=== PATIENT | male | born 1950 | race Caucasian/White ===

== ENCOUNTER 2022-10-31 07:40 | Outpatient (OUT) | payer MEDICARE, OTHER, SELFPAY ==
[2022-10-31 08:40] LABS: Basophils Percent Auto 0.5 % (0.2-2.0); Eosinophils Absolute Auto 0.1 10^3/uL (0.0-0.7); Eosinophils Percent Auto 1.5 % (0.9-7.0); Hematocrit 35.3 % (42.0-54.0); Hemoglobin 11.9 g/dL (14.0-18.0); Immature Granulocytes Abs Auto 0.11 10^3/uL (0.00-0.03); Immature Granulocytes Pct Auto 1.9 % (0.0-0.5); Lymphocytes Absolute Auto 0.8 10^3/uL (1.2-3.8); Lymphocytes Percent Auto 13.7 % (20.5-60.0); Mean Corpuscular HGB Conc 33.7 g/dL (29.9-35.2); Mean Corpuscular Hemoglobin 28.8 pg (25.9-34.0); Mean Corpuscular Volume 85.5 fL (80.0-94.0); Mean Platelet Volume 9.1 fL (9.5-13.5); Monocytes Absolute Auto 0.5 10^3/uL (0.3-0.8); Monocytes Percent Auto 9.1 % (1.7-12.0); Neutrophils Absolute Auto 4.3 10^3/uL (1.4-6.5); Neutrophils Percent Auto 73.3 % (43.0-75.0); Platelet Count 217 10^3/uL (150-450); Red Blood Count 4.13 10^6/uL (4.70-6.10); Red Cell Distribution Width 13.1 % (11.0-15.0); White Blood Count 5.8 10^3/uL (4.0-11.0)
[2022-10-31 09:32] LABS: Alanine Aminotransferase 27 U/L (16-63); Albumin Globulin Ratio 1.1; Albumin Level 3.9 g/dL (3.4-5.0); Alkaline Phosphatase 176 U/L (46-116); Anion Gap 13.2; Aspartate Amino Transferase 18 U/L (15-37); BUN Creatinine Ratio 10.5; Bilirubin Direct 0.1 mg/dL (0.0-0.2); Bilirubin Total 0.3 mg/dL (0.2-1.0); Calcium 7.9 mg/dL (8.5-10.1); Carbon Dioxide 27.2 mmol/L (21.0-32.0); Chloride 95 mmol/L (98-107); Chol HDL Ratio 1.9; Cholesterol 82 mg/dL (<=200); Estimated GFR (African America >60 (>=60); Estimated GFR (Non-African Ame >60 (>=60); Globulin 3.4 g/dL; Glucose 198 mg/dL (74-106); HDL Cholesterol 44 mg/dL (40-60); LDL Cholesterol Calculated 24.2 mg/dL; Magnesium 1.3 mg/dL (1.8-2.4); Phosphorus 3.9 mg/dL (2.6-4.7); Potassium 4.4 mmol/L (3.5-5.1); Sodium 131 mmol/L (136-145); Total Protein 7.3 g/dL (6.4-8.2); Triglycerides 69 mg/dL (<=150); Uric Acid 5.6 mg/dL (3.5-7.2); VLDL CHOLESTEROL 13.8 mg/dL
[2022-10-31 13:58] LABS: Estimated Average Glucose 194 mg/dL; Glycohemoglobin A1C 8.4 % (4.5-6.2)
[2022-11-02 14:10] LABS: BKV DNA, Quant PCR, Plasma Negative (Negative)
[2022-11-03 10:08] LABS: Tacrolimus (FK506), Blood 4.8 ng/mL (2.0-20.0)
[2022-11-04 14:08] LABS: Testosterone 437 ng/dL (264-916)
== END 2022-10-31 07:41 | disposition home or self-care (01) ==
LOC: LAB 07:45
DX: Z48.298 Encounter for aftercare following other organ transplant (principal)
CPT/HCPCS: 36415; 80053; 80061; 80076; 80197; 83036; 83735; 84100; 84402; 84403; 84550; 85025; 87799

== ENCOUNTER 2023-01-02 07:29 | Outpatient (OUT) | payer MEDICARE, OTHER, SELFPAY ==
[2023-01-02 08:02] LABS: Basophils Percent Auto 0.3 % (0.2-2.0); Eosinophils Absolute Auto 0.1 10^3/uL (0.0-0.7); Eosinophils Percent Auto 1.7 % (0.9-7.0); Hematocrit 35.2 % (42.0-54.0); Hemoglobin 11.8 g/dL (14.0-18.0); Immature Granulocytes Pct Auto 1.7 % (0.0-0.5); Lymphocytes Percent Auto 15.7 % (20.5-60.0); Mean Corpuscular HGB Conc 33.5 g/dL (29.9-35.2); Mean Corpuscular Hemoglobin 28.8 pg (25.9-34.0); Mean Corpuscular Volume 85.9 fL (80.0-94.0); Mean Platelet Volume 8.9 fL (9.5-13.5); Monocytes Absolute Auto 0.6 10^3/uL (0.3-0.8); Monocytes Percent Auto 9.4 % (1.7-12.0); Neutrophils Absolute Auto 4.3 10^3/uL (1.4-6.5); Neutrophils Percent Auto 71.2 % (43.0-75.0); Platelet Count 225 10^3/uL (150-450); Red Cell Distribution Width 13.2 % (11.0-15.0); White Blood Count 6.1 10^3/uL (4.0-11.0)
[2023-01-02 08:37] LABS: Alanine Aminotransferase 27 U/L (16-63); Albumin Globulin Ratio 1.3; Albumin Level 4.2 g/dL (3.4-5.0); Alkaline Phosphatase 160 U/L (46-116); Anion Gap 16.4; Aspartate Amino Transferase 13 U/L (15-37); Bilirubin Direct 0.1 mg/dL (0.0-0.2); Bilirubin Total 0.3 mg/dL (0.2-1.0); Calcium 7.9 mg/dL (8.5-10.1); Carbon Dioxide 24.8 mmol/L (21.0-32.0); Chloride 92 mmol/L (98-107); Chol HDL Ratio 1.8; Cholesterol 84 mg/dL (<=200); Estimated GFR (African America >60 (>=60); Estimated GFR (Non-African Ame >60 (>=60); Globulin 3.3 g/dL; Glucose 191 mg/dL (74-106); HDL Cholesterol 46 mg/dL (40-60); LDL Cholesterol Calculated 24.2 mg/dL; Magnesium 1.4 mg/dL (1.8-2.4); Phosphorus 4.5 mg/dL (2.6-4.7); Potassium 5.2 mmol/L (3.5-5.1); Sodium 128 mmol/L (136-145); Total Protein 7.5 g/dL (6.4-8.2); Triglycerides 69 mg/dL (<=150); Uric Acid 5.7 mg/dL (3.5-7.2); VLDL CHOLESTEROL 13.8 mg/dL
[2023-01-05 02:07] LABS: Tacrolimus (FK506), Blood 4.9 ng/mL (2.0-20.0)
== END 2023-01-02 07:30 | disposition home or self-care (01) ==
PROVIDERS: PCP Family Medicine
DX: Z48.298 Encounter for aftercare following other organ transplant (principal); N18.9 Chronic kidney disease, unspecified; R79.89 Other specified abnormal findings of blood chemistry
CPT/HCPCS: 36415; 80053; 80061; 80076; 80197; 83036; 83735; 84100; 84402; 84403; 84550; 85025; 87799

== ENCOUNTER 2023-01-31 07:14 | Outpatient (OUT) | payer MEDICARE, OTHER, SELFPAY ==
[2023-01-31 07:43] LABS: Basophils Percent Auto 0.3 % (0.2-2.0); Eosinophils Absolute Auto 0.1 10^3/uL (0.0-0.7); Eosinophils Percent Auto 1.7 % (0.9-7.0); Hematocrit 33.2 % (42.0-54.0); Hemoglobin 10.8 g/dL (14.0-18.0); Immature Granulocytes Abs Auto 0.07 10^3/uL (0.00-0.03); Immature Granulocytes Pct Auto 1.2 % (0.0-0.5); Lymphocytes Absolute Auto 0.8 10^3/uL (1.2-3.8); Lymphocytes Percent Auto 12.9 % (20.5-60.0); Mean Corpuscular HGB Conc 32.5 g/dL (29.9-35.2); Mean Corpuscular Hemoglobin 29.4 pg (25.9-34.0); Mean Corpuscular Volume 90.5 fL (80.0-94.0); Mean Platelet Volume 9.1 fL (9.5-13.5); Monocytes Absolute Auto 0.6 10^3/uL (0.3-0.8); Monocytes Percent Auto 9.8 % (1.7-12.0); Neutrophils Absolute Auto 4.5 10^3/uL (1.4-6.5); Neutrophils Percent Auto 74.1 % (43.0-75.0); Platelet Count 212 10^3/uL (150-450); Red Blood Count 3.67 10^6/uL (4.70-6.10); Red Cell Distribution Width 13.2 % (11.0-15.0)
[2023-01-31 08:44] LABS: Alanine Aminotransferase 22 U/L (16-63); Albumin Globulin Ratio 1.2; Albumin Level 3.8 g/dL (3.4-5.0); Alkaline Phosphatase 140 U/L (46-116); Anion Gap 13.5; Aspartate Amino Transferase 15 U/L (15-37); BUN Creatinine Ratio 12.5; Bilirubin Direct 0.1 mg/dL (0.0-0.2); Bilirubin Total 0.2 mg/dL (0.2-1.0); Calcium 7.9 mg/dL (8.5-10.1); Carbon Dioxide 26.7 mmol/L (21.0-32.0); Chloride 96 mmol/L (98-107); Cholesterol 79 mg/dL (<=200); Estimated GFR (African America >60 (>=60); Estimated GFR (Non-African Ame >60 (>=60); Globulin 3.1 g/dL; Glucose 188 mg/dL (74-106); HDL Cholesterol 39 mg/dL (40-60); Magnesium 1.2 mg/dL (1.8-2.4); Potassium 5.2 mmol/L (3.5-5.1); Sodium 131 mmol/L (136-145); Total Protein 6.9 g/dL (6.4-8.2); Triglycerides 88 mg/dL (<=150); Uric Acid 6.2 mg/dL (3.5-7.2); VLDL CHOLESTEROL 17.6 mg/dL
[2023-02-03 06:07] LABS: Tacrolimus (FK506), Blood 4.9 ng/mL (2.0-20.0)
== END 2023-01-31 07:15 | disposition home or self-care (01) ==
LOC: LAB 07:15
PROVIDERS: PCP Family Medicine
DX: Z48.298 Encounter for aftercare following other organ transplant (principal); N18.9 Chronic kidney disease, unspecified; R79.89 Other specified abnormal findings of blood chemistry
CPT/HCPCS: 36415; 80053; 80061; 80197; 82248; 83735; 84100; 84550; 85025

== ENCOUNTER 2023-02-28 07:07 | Outpatient (OUT) | payer MEDICARE, OTHER, SELFPAY ==
[2023-02-28 07:31] LABS: Basophils Percent Auto 0.6 % (0.2-2.0); Eosinophils Absolute Auto 0.2 10^3/uL (0.0-0.7); Eosinophils Percent Auto 2.3 % (0.9-7.0); Hematocrit 32.1 % (42.0-54.0); Hemoglobin 10.9 g/dL (14.0-18.0); Immature Granulocytes Abs Auto 0.09 10^3/uL (0.00-0.03); Immature Granulocytes Pct Auto 1.3 % (0.0-0.5); Lymphocytes Absolute Auto 0.9 10^3/uL (1.2-3.8); Lymphocytes Percent Auto 13.5 % (20.5-60.0); Mean Corpuscular Hemoglobin 29.3 pg (25.9-34.0); Mean Corpuscular Volume 86.3 fL (80.0-94.0); Mean Platelet Volume 8.9 fL (9.5-13.5); Monocytes Absolute Auto 0.6 10^3/uL (0.3-0.8); Monocytes Percent Auto 8.7 % (1.7-12.0); Neutrophils Absolute Auto 5.1 10^3/uL (1.4-6.5); Neutrophils Percent Auto 73.6 % (43.0-75.0); Platelet Count 237 10^3/uL (150-450); Red Blood Count 3.72 10^6/uL (4.70-6.10); Red Cell Distribution Width 13.2 % (11.0-15.0); White Blood Count 6.9 10^3/uL (4.0-11.0)
[2023-02-28 08:22] LABS: Estimated Average Glucose 223 mg/dL; Glycohemoglobin A1C 9.4 % (4.5-6.2)
[2023-02-28 08:28] LABS: Chloride 92 mmol/L (98-107); Potassium 4.9 mmol/L (3.5-5.1); Sodium 125 mmol/L (136-145)
[2023-02-28 09:14] LABS: Anion Gap 13.2; Carbon Dioxide 24.7 mmol/L (21.0-32.0); Glucose 232 mg/dL (74-106)
[2023-02-28 09:15] LABS: BUN Creatinine Ratio 10.9; Calcium 7.5 mg/dL (8.5-10.1); Estimated GFR (African America >60 (>=60); Estimated GFR (Non-African Ame >60 (>=60)
[2023-02-28 09:16] LABS: Alanine Aminotransferase 26 U/L (16-63); Alkaline Phosphatase 143 U/L (46-116); Aspartate Amino Transferase 11 U/L (15-37); Bilirubin Direct 0.1 mg/dL (0.0-0.2); Bilirubin Total 0.4 mg/dL (0.2-1.0); Magnesium 1.1 mg/dL (1.8-2.4); Phosphorus 4.8 mg/dL (2.6-4.7)
[2023-02-28 09:17] LABS: Albumin Globulin Ratio 1.3; Albumin Level 3.9 g/dL (3.4-5.0); Cholesterol 78 mg/dL (<=200); HDL Cholesterol 46 mg/dL (40-60); Total Protein 6.9 g/dL (6.4-8.2); Triglycerides 53 mg/dL (<=150); VLDL CHOLESTEROL 10.6 mg/dL
[2023-02-28 09:22] LABS: Chol HDL Ratio 1.7
[2023-03-03 14:08] LABS: BKV DNA, Quant PCR, Plasma Negative (Negative)
[2023-03-03 21:07] LABS: Tacrolimus (FK506), Blood 8.4 ng/mL (2.0-20.0)
[2023-03-06 21:07] LABS: Free Testosterone(Direct) 5.6 pg/mL (6.6-18.1); Testosterone 401 ng/dL (264-916)
== END 2023-02-28 07:08 | disposition home or self-care (01) ==
PROVIDERS: PCP Family Medicine
DX: Z48.298 Encounter for aftercare following other organ transplant (principal); N18.9 Chronic kidney disease, unspecified; R79.89 Other specified abnormal findings of blood chemistry
CPT/HCPCS: 36415; 80053; 80061; 80197; 82248; 83036; 83735; 84100; 84402; 84403; 84550; 85025; 87799

== ENCOUNTER 2023-04-04 06:59 | Outpatient (OUT) | payer MEDICARE, OTHER, SELFPAY ==
[2023-04-04 07:23] LABS: Basophils Percent Auto 0.4 % (0.2-2.0); Eosinophils Absolute Auto 0.1 10^3/uL (0.0-0.7); Eosinophils Percent Auto 1.6 % (0.9-7.0); Hematocrit 35.1 % (42.0-54.0); Hemoglobin 11.7 g/dL (14.0-18.0); Immature Granulocytes Abs Auto 0.06 10^3/uL (0.00-0.03); Immature Granulocytes Pct Auto 0.9 % (0.0-0.5); Lymphocytes Absolute Auto 0.8 10^3/uL (1.2-3.8); Lymphocytes Percent Auto 12.1 % (20.5-60.0); Mean Corpuscular HGB Conc 33.3 g/dL (29.9-35.2); Mean Corpuscular Hemoglobin 29.5 pg (25.9-34.0); Mean Corpuscular Volume 88.6 fL (80.0-94.0); Mean Platelet Volume 9.8 fL (9.5-13.5); Monocytes Absolute Auto 0.5 10^3/uL (0.3-0.8); Neutrophils Absolute Auto 5.4 10^3/uL (1.4-6.5); Platelet Count 240 10^3/uL (150-450); Red Blood Count 3.96 10^6/uL (4.70-6.10)
[2023-04-04 07:52] LABS: Alanine Aminotransferase 26 U/L (16-63); Albumin Globulin Ratio 1.3; Albumin Level 3.9 g/dL (3.4-5.0); Alkaline Phosphatase 152 U/L (46-116); Anion Gap 17.2; Aspartate Amino Transferase 16 U/L (15-37); BUN Creatinine Ratio 13.4; Bilirubin Direct 0.1 mg/dL (0.0-0.2); Bilirubin Total 0.4 mg/dL (0.2-1.0); Calcium 7.7 mg/dL (8.5-10.1); Carbon Dioxide 23.6 mmol/L (21.0-32.0); Chloride 94 mmol/L (98-107); Chol HDL Ratio 1.7; Cholesterol 78 mg/dL (<=200); Estimated Average Glucose 280 mg/dL; Estimated GFR (African America >60 (>=60); Estimated GFR (Non-African Ame >60 (>=60); Globulin 3.1 g/dL; Glucose 345 mg/dL (74-106); Glycohemoglobin A1C 11.4 % (4.5-6.2); HDL Cholesterol 46 mg/dL (40-60); LDL Cholesterol Calculated 19.6 mg/dL; Phosphorus 4.5 mg/dL (2.6-4.7); Potassium 4.8 mmol/L (3.5-5.1); Sodium 130 mmol/L (136-145); Triglycerides 62 mg/dL (<=150); Uric Acid 6.1 mg/dL (3.5-7.2); VLDL CHOLESTEROL 12.4 mg/dL
[2023-04-04 08:27] LABS: Magnesium 1.2 mg/dL (1.8-2.4)
[2023-04-06 21:09] LABS: Tacrolimus (FK506), Blood 9.4 ng/mL (2.0-20.0)
[2023-04-07 12:11] LABS: BKV DNA, Quant PCR, Plasma Negative (Negative)
[2023-04-09 13:09] LABS: Testosterone 284 ng/dL (264-916)
== END 2023-04-04 07:00 | disposition home or self-care (01) ==
LOC: LAB 07:00
PROVIDERS: PCP Family Medicine
DX: R73.02 Impaired glucose tolerance (oral) (principal); Z94.0 Kidney transplant status
CPT/HCPCS: 36415; 80053; 80061; 80076; 80197; 83036; 83735; 84100; 84402; 84403; 84550; 85025; 87799

== ENCOUNTER 2023-04-27 08:55 | Emergency (ER) | payer MEDICARE, OTHER, SELFPAY ==
[2023-04-27] VITALS (68 sets, daily range): BP systolic 91–132; BP diastolic 49–73; PULSE 59–87; RESP 10–26; TEMP 36.4; O2SAT 95–98; BMI 25.0
--- NOTE | 2023-04-27 09:07 | ECG_ITS ---
The [facility] Test Date: 2023-04-27 Pat Name: ROGER KERR Department: Room: - Gender: Male Vehicle Check In Clerk: : 1950 Requested By: PHYLILS MCCARTHY Order Number: [id number] Reading MD: ASTRID SCHULTZ Measurements Intervals [place] Rate: 62 P: 44 RI: 170 QRS: 30 QRSD: 102 T: 30 QT: 422 QTc: 428 Interpretive Statements 1100 Sinus rhythm 3433 Septal myocardial infarction, probably old 9150 abnormal ECG No previous ECG available for comparison Electronically Signed On 04-27-2023 16:56:56 EST by ASTRID SCHULTZ
--- NOTE | 2023-04-27 09:10 | ED_ITS ---
HPI - General Adult General Chief complaint: Nausea/Vomiting/Diarrhea Stated complaint: NAUSEA Time Seen by Provider: 04/27/23 09:02 Source: patient Mode of arrival: walk-in History of Present Illness HPI narrative: 72-year-old male presents for nausea and vomiting. He states he's been able to drink liquids but can't eat very well because he is having trouble swallowing food. It's been this way for a month. Three years ago he had kidney transplant in about three weeks ago he had his blood tested. He's been able to take all of his medications. No fever or hematemesis. Related Data Home Medications Medication Instructions Recorded Confirmed amiloride 5 mg tablet 5 mg PO DAILY 04/27/23 04/27/23 amlodipine 10 mg tablet 10 mg PO DAILY 04/27/23 04/27/23 atorvastatin 10 mg tablet 10 mg PO .every other day 04/27/23 04/27/23 carvedilol 12.5 mg tablet 12.5 mg PO Q12H 04/27/23 04/27/23 cinacalcet 30 mg tablet 30 mg PO DAILY 04/27/23 04/27/23 furosemide 20 mg tablet 20 mg PO DAILY 04/27/23 04/27/23 lisinopril 20 mg tablet 20 mg PO DAILY 04/27/23 04/27/23 magnesium oxide 400 mg (241.3 mg 800 mg PO BID 04/27/23 04/27/23 magnesium) tablet sildenafil (pulm.hypertension) 20 20 mg PO TID 04/27/23 04/27/23 mg tablet sulfasalazine 500 mg 0.5 g PO Q12H 04/27/23 04/27/23 tablet,delayed release Allergies Allergy/AdvReac Type Severity Reaction Status Date / Time No Known Drug Allergies Allergy Verified 04/27/23 09:02 Review of Systems ROS Narrative A ten point review of systems is negative except as noted above. Exam Narrative Exam Narrative: Nurses note and vital signs reviewed and patient is not hypoxic. General: The patient appears well and in no apparent distress. Patient is resting comfortably on cart. Skin: Warm, dry, no pallor noted. There is no rash noted. Head: Normocephalic, atraumatic Eye: Normal conjunctiva, no drainage, EOMI. PERRL Ears, Nose, Mouth, and Throat: oral mucosa is moderately dry. Nares patent. Mouth without vesicles. Cardiovascular: Regular Rate and Rhythm Respiratory: Patient is in no distress, no accessory muscle use, lungs are clear to auscultation, no wheezing, rales or rhonchi Back: non-tender GI: soft and nontender Musculoskeletal: The patient has no evidence of calf tenderness, no pitting edema, symmetrical pulses noted bilaterally Neurological: A&O, normal speech Psychiatric: Cooperative Constitutional Vital Signs, click to edit/add: Last Vital Signs Temp 97.5 F L 04/27/23 08:59 Pulse 65 04/27/23 11:00 Resp 22 04/27/23 11:00 BP 126/63 04/27/23 11:00 Pulse Ox 96 04/27/23 11:00 O2 Del Method Room Air 04/27/23 08:59 Course Vital Signs Vital signs: Vital Signs Temperature 97.5 F L 04/27/23 08:59 Pulse Rate 69 04/27/23 08:59 Respiratory Rate 18 04/27/23 08:59 Blood Pressure 117/61 04/27/23 08:59 Pulse Oximetry 97 04/27/23 08:59 Oxygen Delivery Method Room Air 04/27/23 08:59 Temperature 97.5 F L 04/27/23 08:59 Pulse Rate 65 04/27/23 11:00 Respiratory Rate 22 04/27/23 11:00 Blood Pressure 126/63 04/27/23 11:00 Pulse Oximetry 96 04/27/23 11:00 Oxygen Delivery Method Room Air 04/27/23 08:59 Medical Decision Making MDM Narrative Medical decision making narrative: the patient presents with DKA. His blood sugar was five hundred ninety-two and sodium one hundred nineteen. He has a renal transplant patient and his baseline creatinine is approximately 1.1 and it's 2.1 today with a BUN of fifty-five. He was given IV fluids and IV insulin. He also was hyperkalemic with a potassium of 5.7. This revealed corrected with the IV insulin and his already present hyperglycemia as well as the IV fluids. Discussed with our hospitalist here as well as the hospitalist at [facility] [place] and we are in agreement that the patient will be transferred there. He is stable for transfer and agreeable. Differential Diagnosis Differential Diagnosis: DKA, dehydration, DAVID, renal transplant rejection Lab Data Lab results reviewed: Yes I reviewed the patient's lab results Labs: Lab Results 04/27/23 04/27/23 04/27/23 Range/Units 09:10 10:10 10:40 WBC 11.8 H (4.0-11.0) 10^3/uL RBC 3.94 L (4.70-6.10) 10^6/uL Hgb 11.5 L (14.0-18.0) g/dL Hct 35.4 L (42.0-54.0) % MCV 89.8 (80.0-94.0) fL MCH 29.2 (25.9-34.0) pg MCHC 32.5 (29.9-35.2) g/dL RDW 12.7 (11.0-15.0) % Plt Count 293 (150-450) 10^3/uL MPV 10.7 (9.5-13.5) fL Neut % (Auto) 78.1 H (43.0-75.0) % Lymph % (Auto) 10.3 L (20.5-60.0) % Barnes % (Auto) 9.3 (1.7-12.0) % Eos % (Auto) 0.3 L (0.9-7.0) % Baso % (Auto) 0.3 (0.2-2.0) % Neut # (Auto) 9.2 H (1.4-6.5) 10^3/uL Lymph # (Auto) 1.2 (1.2-3.8) 10^3/uL Barnes # (Auto) 1.1 H (0.3-0.8) 10^3/uL Eos # (Auto) 0.0 (0.0-0.7) 10^3/uL Baso # (Auto) 0.0 (0.0-0.1) 10^3/uL Abs Immat Gran (auto) 0.20 H (0.00-0.03) 10^3/uL Imm/Tot Granulo (auto) 1.7 H (0.0-0.5) % VBG pH 7.309 L (7.330-7.430) VBG pCO2 27.4 L (40.0-52.0) mmHg Sodium 119 L* (136-145) mmol/L Potassium 5.7 H (3.5-5.1) mmol/L Chloride 86 L (98-107) mmol/L Carbon Dioxide 17.6 L (21.0-32.0) mmol/L Anion Gap 21.1 BUN 55.0 H (7.0-18.0) mg/dL Creatinine 2.11 H (0.70-1.30) mg/dL Est GFR ( Amer) 38 L (>=60) Est GFR (Non-Af Amer) 31 L (>=60) BUN/Creatinine Ratio 26.1 Glucose 592 H* (74-106) mg/dL Calcium 9.1 (8.5-10.1) mg/dL Total Bilirubin 0.6 (0.2-1.0) mg/dL Direct Bilirubin 0.2 (0.0-0.2) mg/dL AST 13 L (15-37) U/L ALT 12 L (16-63) U/L Alkaline Phosphatase 130 H (46-116) U/L Total Protein 7.4 (6.4-8.2) g/dL Albumin 3.2 L (3.4-5.0) g/dL Globulin 4.2 g/dL Albumin/Globulin Ratio 0.8 Amylase 27 (25-115) U/L Lipase 40.0 (16.0-77.0) U/L Acetone, Qual Small A (NEGATIVE) POC Glucose 416 H (74-106) mg/dL ECG Data Attestation: I personally reviewed and interpreted this ECG as follows: (EKG on my interpretation shows sinus rhythm with rate of sixty-two.) Discharge Plan Discharge Chief Complaint: Nausea/Vomiting/Diarrhea Clinical Impression: DAVID (acute kidney injury), DKA (diabetic ketoacidosis) Patient Disposition: [facility] Time of Disposition Decision: 11:48 Discharge Location: [facility] Condition: Fair Mode of Transportation: Private Vehicle
[2023-04-27] MEDS: 0.9 % SODIUM CHLORIDE 1,000 ML 125 ML IV ×2 (09:20→17:11)
[2023-04-27] MEDS: ONDANSETRON PF 4 MG/2 ML VIAL IV (09:20)
[2023-04-27 09:30] LABS: Basophils Percent Auto 0.3 % (0.2-2.0); Eosinophils Percent Auto 0.3 % (0.9-7.0); Hematocrit 35.4 % (42.0-54.0); Hemoglobin 11.5 g/dL (14.0-18.0); Immature Granulocytes Pct Auto 1.7 % (0.0-0.5); Lymphocytes Absolute Auto 1.2 10^3/uL (1.2-3.8); Lymphocytes Percent Auto 10.3 % (20.5-60.0); Mean Corpuscular HGB Conc 32.5 g/dL (29.9-35.2); Mean Corpuscular Hemoglobin 29.2 pg (25.9-34.0); Mean Corpuscular Volume 89.8 fL (80.0-94.0); Mean Platelet Volume 10.7 fL (9.5-13.5); Monocytes Absolute Auto 1.1 10^3/uL (0.3-0.8); Monocytes Percent Auto 9.3 % (1.7-12.0); Neutrophils Absolute Auto 9.2 10^3/uL (1.4-6.5); Neutrophils Percent Auto 78.1 % (43.0-75.0); Platelet Count 293 10^3/uL (150-450); Red Blood Count 3.94 10^6/uL (4.70-6.10); Red Cell Distribution Width 12.7 % (11.0-15.0); White Blood Count 11.8 10^3/uL (4.0-11.0)
[2023-04-27 09:39] LABS: Alanine Aminotransferase 12 U/L (16-63); Albumin Globulin Ratio 0.8; Albumin Level 3.2 g/dL (3.4-5.0); Alkaline Phosphatase 130 U/L (46-116); Amylase 27 U/L (25-115); Aspartate Amino Transferase 13 U/L (15-37); Bilirubin Direct 0.2 mg/dL (0.0-0.2); Bilirubin Total 0.6 mg/dL (0.2-1.0); Globulin 4.2 g/dL; Total Protein 7.4 g/dL (6.4-8.2)
[2023-04-27 09:40] LABS: Anion Gap 21.1; BUN Creatinine Ratio 26.1; Calcium 9.1 mg/dL (8.5-10.1); Carbon Dioxide 17.6 mmol/L (21.0-32.0); Chloride 86 mmol/L (98-107); Estimated GFR (African America 38 (>=60); Estimated GFR (Non-African Ame 31 (>=60); Potassium 5.7 mmol/L (3.5-5.1)
[2023-04-27 09:41] LABS: Glucose 592 mg/dL (74-106); Sodium 119 mmol/L (136-145)
[2023-04-27] MEDS: 0.9 % SODIUM CHLORIDE 1,000 ML 1000 ML IV (09:53)
[2023-04-27] MEDS: INSULIN REGULAR 300 UNITS/3 ML 10 UNIT IV (09:54)
[2023-04-27 10:09] LABS: Acetone SMALL (NEGATIVE)
[2023-04-27 10:20] LABS: PCO2 VBG 27.4 mmHg (40.0-52.0); pH VBG 7.309 (7.330-7.430)
[2023-04-27 10:40] LABS: Glucometer 416 mg/dL (74-106)
[2023-04-27 12:34] LABS: Bilirubin Urine MODERATE (NEGATIVE); Blood Urine NEGATIVE (NEGATIVE); Clarity Urine CLEAR (CLEAR); Color Urine LT. YELLOW (YELLOW); Glucose Urine UA >=1000 mg/dL (NEGATIVE); Ketones Urine 15 mg/dL (NEGATIVE); Leukocyte Esterase Urine NEGATIVE (NEGATIVE); Nitrite Urine NEGATIVE (NEGATIVE); Protein Urine NEGATIVE (NEG/TRACE); Specific Gravity Urine 1.015 (1.005-1.025); Urobilinogen Urine 0.2 EU/dL (0.2-1.0); pH Urine 5.5 (5.0-9.0)
[2023-04-27 12:40] LABS: Bacteria Urine NONE SEEN #/HPF (NONE SEEN); RBC Urine NONE SEEN #/HPF (0-2); WBC Urine NONE SEEN #/HPF (NONE SEEN)
[2023-04-27 12:41] LABS: Cast Seen? SEEN #/LPF (NONE SEEN); Crystals Seen? None Seen #/HPF (None Seen); Hyaline Casts Urine RARE; Mucus Urine NONE SEEN (NONE SEEN); Squamous Epithelial Cell Urine NONE SEEN #/LPF (NONE/RARE)
[2023-04-27 12:46] LABS: Glucometer 404 mg/dL (74-106)
[2023-04-27] MEDS: INSULIN REGULAR IN 0.9 % NACL 100 UNIT/100 ML PLAST..BAG 7.031 UNIT IV (13:48)
[2023-04-27 13:56] LABS: Glucometer 399 mg/dL (74-106)
[2023-04-27 14:45] LABS: Glucometer 394 mg/dL (74-106)
[2023-04-27 15:44] LABS: Glucometer 402 mg/dL (74-106)
[2023-04-27 16:58] LABS: Glucometer 422 mg/dL (74-106)
[2023-04-27] MEDS: INSULIN REGULAR 300 UNITS/3 ML 6 UNIT IV (17:21)
[2023-04-27 18:20] LABS: Glucometer 321 mg/dL (74-106)
[2023-04-27 19:15] LABS: Glucometer 247 mg/dL (74-106)
[2023-04-27 20:28] LABS: Anion Gap 15.6; BUN Creatinine Ratio 29.2; Calcium 8.4 mg/dL (8.5-10.1); Carbon Dioxide 20.1 mmol/L (21.0-32.0); Chloride 97 mmol/L (98-107); Estimated GFR (African America 48 (>=60); Estimated GFR (Non-African Ame 40 (>=60); Glucose 207 mg/dL (74-106); Potassium 4.7 mmol/L (3.5-5.1); Sodium 128 mmol/L (136-145)
[2023-04-27] MEDS: DEXTROSE 5 %-0.45 % SOD CHLORD 1,000 ML 200 ML IV (21:12)
== END 2023-04-27 21:35 | disposition short-term general hospital (02) ==
PROVIDERS: Student in an Organized Health Care Education/Training Program; Emergency Provider Emergency Medicine; PCP Family Medicine
DX: E11.10 Type 2 diabetes mellitus with ketoacidosis without coma (principal); N17.9 Acute kidney failure, unspecified; Z79.899 Other long term (current) drug therapy; Z94.0 Kidney transplant status
CPT/HCPCS: 36415; 80048; 80076; 81001; 82009; 82150; 82800; 82948; 83690; 85025; 93005; 96361; 96374; 99285

== ENCOUNTER 2023-05-09 06:58 | Outpatient (OUT) | payer MEDICARE, OTHER, SELFPAY ==
--- OUTSIDE RECORDS SUMMARY | 2023-05-09 07:05 | XMS_ITS | CCD ---
Author Name Unknown Address [address] [place] [address] Organization [facility] Care Team Providers Care [facility] Consultant Name Role Phone Tj Wells Unavailable MD Jericho Mccarthy Primary Care Provider MD Tj Wells Attending Provider Tj Wells Attending Unavailabl e NadJericho lofton Primary Care Unavailable Tj Wells Admitting Unavailabl e Maira, Tj Sullivan Admitting Unavailabl e Tj Wells Attending Unavailabl e NadereJericho sullivan Primary Care Unavailable MISC, DR ALVAREZ Attending Unavailable MISC, DR ALVAREZ Admitting Unavailable MISC, DR ALVAREZ Consulting Unavailable NADERER, DR JERICHO Floyd Primary Care Unavailable [place], DR MERRITT Consulting Unavailable [place], DR MERRITT Attending Unavailable [place], DR MERRITT Admitting Unavailable NADERER, DR FERGUSON A Primary Care Unavailable MISC, DR ALVAREZ Attending Unavailable MISC, DR ALVAREZ Admitting Unavailable NADERER, DR FERGUSON A Primary Care Unavailable MISC, DR ALVAREZ Consulting Unavailable [place], DR MERRITT Consulting Unavailable [place], DR MERRITT Attending Unavailable NADERER, DR FERGUSON A Primary Care Unavailable [place], DR MERRITT Admitting Unavailable MISC, DR ALVAREZ Attending Unavailable MISC, DR ALVAREZ Admitting Unavailable NADERER, DR FERGUSON A Primary Care Unavailable MISC, DR ALVAREZ Consulting Unavailable MISC, DR ALVAREZ Consulting Unavailable MISC, DR ALVAREZ Attending Unavailable NADERER, DR FERGUSON A Primary Care Unavailable MISC, DR ALVAREZ Admitting Unavailable MISC, DR ALVAREZ Admitting Unavailable MISC, DR ALVAREZ Consulting Unavailable MISC, DR ALVAREZ Attending Unavailable NADERER, DR FERGUSON A Primary Care Unavailable MISC, DR ALVAREZ Admitting Unavailable MISC, DR ALVAREZ Consulting Unavailable NADERER, DR FERGUSON A Primary Care Unavailable MISC, DR ALVAREZ Attending Unavailable MISC, DR ALVAREZ Admitting Unavailable MISC, DR ALVAREZ Consulting Unavailable NADERER, DR JERICHO Floyd Primary Care Unavailable MISC, DR ALVAREZ Attending Unavailable FABIO, DR FERGUSON A Primary Care Unavailable IAN ., DR WINTERS Consulting Unavailable IAN ., DR WINTERS Attending Unavailable IAN ., DR WINTESR Admitting Unavailable MISC, DR ALVAREZ Admitting Unavailable MISC, DR ALVAREZ Consulting Unavailable FABIO, DR JERICHO Floyd Primary Care Unavailable MISC, DR ALVAREZ Attending Unavailable MISC, DR ALVAREZ Attending Unavailable MISC, DR ALVAREZ Admitting Unavailable MISC, DR ALVAREZ Consulting Unavailable FABIO, DR FERGUSON A Primary Care Unavailable MERZA, NOORALDIN Referring Unavailable HORANI, ESTHER Referring Unavailable MERZA, NOORALDIN Referring Unavailable MARIO EGAN Attending Unavailable BENJA MCGHEE Attending Unavailable HORANI, ESTHER Attending Unavailable GYPSY GONZALES Admitting Unavailable MENDY CLEMONS Referring Unavailable JERICHO ABAD Attending Unavailable Allergies Allergy Classification Reported Allergen(s) Allergy Type Date of Onset Reaction(s) Facility (1 source) NSAIDs; Translations: [NSAIDS (NON-STEROIDAL ANTI-INFLAMMATOR Y DRUG)] Propensity to adverse reactions to drug (disorder) 2 [facility] Repository Medications Current Medications Medication Drug Class(es) Dates Sig (Normalized) Sig (Original) amLODIPine 10 mg oral tablet (3 sources) Dihydropyridine Calcium Channel Swetha Start: 07-08-2017 take 10 mg by mouth once daily Amlodipine Active 10 MG PO Daily July 08, 2017 1:00am atorvastatin 10 mg oral tablet (2 sources) HMG-CoA Reductase Inhibitor Start: 03-05-2022 take 10 mg by mouth once daily Atorvastatin Active 10 MG PO Daily March 05, 2022 12:00am take 1 tablet by mouth once carmelo y Atorvastatin Calcium 10 MG take 1 tablet by mouth once daily Oral for 90 Active carvedilol 3.125 mg oral tablet (8 sources) alpha-Adrenergic Swetha, beta-Adrenergic Swetha Start: 03-05-2022 take 3.125 mg by mouth twice daily Carvedilol Active 3.125 MG PO Twice daily March 05, 2022 12:00am Start: 08-26-2018 End: 03-05-2022 take 25 mg by mouth twice daily Carvedilol Discontinue d 25 MG PO Twice daily 0 August 27, 2018 12:00am February 23, 2019 7:14am Start: 07-08-2017 End: 08-26-2018 take 1 tablet by mouth twice daily Carvedilol Discontinued 1 TAB PO Twice daily July 08, 2017 1:00am August 26, 2018 8:28am cinacalcet 30 mg oral tablet (2 sources) Calcium-sensing Receptor Agonist Start: 03-05-2022 take 30 mg by mouth once daily Cinacalcet Active 30 MG PO Daily March 05, 2022 12:00am Cinacalcet HCl A ctive dicyclomine hydrochloride 20 mg oral tablet (1 source) Anticholinergic Start: 03-05-2022 take 20 mg by mouth twice daily Dicyclomine Active 20 MG PO Twice daily March 05, 2022 12:00am furosemide 20 mg oral tablet (2 sources) Loop Diuretic Start: 03-05-2022 take 20 mg by mouth once daily Furosemide Active 20 MG PO Daily March 05, 2022 12:00am take 1 tablet by pastora th every twenty-four hours Lasix 20 MG 1 tablet Orally Once a day Active lisinopril 20 mg oral tablet (3 sources) Angiotensin Converting Enzyme Inhibitor Start: 01-07-2017 take 20 mg by mouth once daily Lisinopril Active 20 MG PO Daily January 07, 2017 12:00am Start: 01-07-2017 take 20 mg by mouth twice carmelo y Lisinopril Active 20 MG PO Twice daily January 07, 2017 12:00am Magnesium (1 source) Magnesium Active magnesium oxide 400 mg oral tablet (2 sources) Start: 03-05-2022 take 1200 mg by mouth twice daily Magnesium Oxide Active 1200 MG PO Twice daily March 05, 2022 12:00am Magnesium Oxide Active mycophenolic acid 180 mg delayed release oral tablet (1 source) Antimetabolite Immunosuppressant take 2 tablets by mouth every twelve hours Mycophenolate Sodium 180 MG 2 tablets Orally Twice a day Active sildenafil 20 mg oral tablet (2 sources) Phosphodiesterase 5 Inhibitor Start: take 20 mg by mouth three times daily Sildenafil (Pulm.Hypertension) Active 20 MG PO Three times daily March 05, 2022 12:00am take 1 tablet by mouth three vero es daily Sildenafil Citrate 20 MG take 1 tablet by mouth three times a day Oral for 30 Active sulfaSALAzine 500 mg delayed release oral tablet (1 source) Aminosalicylate Start: 03-05-2022 take 1 g by mouth twice daily Sulfasalazine Active 1 GM PO Twice daily 60 March 05, 2022 12:00am 24 hr tacrolimus 0.5 mg extended release oral capsule (2 sources) Calcineurin Inhibitor Immunosuppressant Start: 03-05-2022 take 0.5 mg by mouth twice daily after mealtime Tacrolimus Active 0.5 MG PO Twice daily March 05, 2022 12:00am must administer in the morning on an empty stomach, 1 hour before or 2 hours after a meal Tacrolimus 0.03 % 1 application Externally Once a day Active Completed/Discontinued Medications Medication Drug Class(es) Dates Sig (Normalized) Sig (Original) aspirin 81 mg delayed release oral tablet (2 sources) Platelet Aggregation Inhibitor, Nonsteroidal Anti-inflammatory Drug Start: 02-23-2019 End: 03-05-2022 take 1 tablet by mouth once daily Aspirin (Aspirin Low Dose) 81 mg Tablet,Delayed Release (Dr/Ec) Discontinued 81 MG PO Daily February 23, 2019 12:00am March 05, 2022 7:07am calcium acetate 667 mg oral capsule (4 sources) Start: 02-23-2019 End: 03-05-2022 take 1334 mg by mouth three times daily Calcium Acetate(Phosphat Bind) Discontinued 1334 MG PO Three times daily February 23, 2019 12:00am March 05, 2022 7:07am Start: 01-07-2017 End: 07-08-2017 take 2001 mg by mouth three times daily Calcium Acetate(Phosphat Bind) Discontinued 2001 MG PO Three times daily January 07, 2017 12:00am July 08, 2017 8:01am colchicine 0.6 mg oral tablet (2 sources) Start: 02-23-2019 End: 03-05-2022 take 1 tablet by mouth once daily Colchicine (Colcrys) 0.6 mg tablet Discontinued 1 TAB PO Daily February 23, 2019 12:00am March 05, 2022 7:07am 1 ml epoetin greg 3000 unt/ml injection (2 sources) Erythropoiesis-stim ulating Agent Start: 08-26-2018 End: 03-05-2022 Epoetin Greg (Epogen) 3,000 unit/mL Solution Discontinued 2600 UNIT IV MOWEFR@0900 August 26, 2018 12:00am March 05, 2022 7:07am heparin sodium, porcine 1000 unt/ml injectable solution (4 sources) Unfractionated Heparin, Anti-coagulant Start: 07-08-2017 End: 03-05-2022 Heparin (Porcine) Discontinued 5000 UNIT IV As Directed 0 July 08, 2017 9:53am March 05, 2022 7:07am hydrALAZINE hydrochloride 25 mg oral tablet (2 sources) Arteriolar Vasodilator Start: 02-23-2019 End: 03-05-2022 take 1 tablet by mouth twice daily Hydralazine Discontinued 1 TAB PO Twice daily February 23, 2019 12:00am March 05, 2022 7:07am lidocaine 25 mg/ml / prilocaine 25 mg/ml topical cream (2 sources) Antiarrhythmic, Amide Local Anesthetic Start: 07-08-2017 End: 03-05-2022 Lidocaine-Priloc yamilex Discontinued 1 UNIT TOPICAL As Directed July 08, 2017 1:00am March 05, 2022 7:07am oxyCODONE hydrochloride 5 mg oral tablet (2 sources) Opioid Agonist Start: 01-14-2017 End: 07-08-2017 take 5 mg by mouth every six hours Oxycodone Discontinued 5 MG PO Q6H January 14, 2017 12:00am July 08, 2017 7:56am 1 ml paricalcitol 0.005 mg/ml injection (2 sources) Vitamin D3 Analog Start: 07-08-2017 End: 03-05-2022 take 2 ug intravenously once Paricalcitol (Zemplar) 5 mcg/mL Solution Discontinued 2 MCG IV MOWEFR@0900 July 08, 2017 1:00am March 05, 2022 7:07am RECEIVES 2 MCG IVP MWF DURING DIALYSIS PER [facility] (08/26/18) 5 ml sodium ferric gluconate complex 12.5 mg/ml injection (2 sources) Start: 07-08-2017 End: 03-05-2022 Sodium Ferric Gluconat-Sucrose (Ferrlecit) 62.5 mg/5 mL Solution Discontinued 125 MG IV Q14D July 08, 2017 1:00am March 05, 2022 7:07am RECEIVES FERRLECIT 125MG IVP EVERY OTHER FRIDAY (DOSE DUE 08/26/18 PER [facility]) Problems Active Problems Problem Classification Problem Date Documented Date Episodic/Chronic Acute and unspecified renal failure (2 sources) Acute kidney failure, unspecified; Translations: [Acute kidney failure, unspecified] Onset: 04-28-20 Episodic Chronic kidney disease (16 sources) Dependence on renal dialysis; Translations: [Dependence on renal dialysis] Onset: 01-05-2008-26-2018 Chronic Congestive heart failure; nonhypertensive (2 sources) Chronic systolic (congestive) heart failure; Translations: [Chronic systolic (congestive) heart failure] Onset: 01-30-20 Chronic Coronary atherosclerosis and other heart disease (2 sources) Atherosclerotic heart disease of [place] coronary artery without angina pectoris; Translations: [Atherosclerotic heart disease of [place] coronary artery without angina pectoris] Onset: 10-05-19 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) 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; Translations: [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] Onset: 04-28-20 Chronic Disorders of lipid metabolism (1 source) Pure hypercholesterolemia, unspecified; Translations: [PURE HYPERCHOLESTEROLEMIA UNSPEC] Onset: 11-17-19 Chronic Esophageal disorders (2 sources) Gastroesophageal reflux disease; Translations: [Gastro-esophageal reflux disease without esophagitis] 08-26-2018 Chronic Essential hypertension (5 sources) Hypertensive disorder; Translations: [Essential (primary) hypertension] Onset: 11-17-1908-26-2018 Chronic Genitourinary congenital anomalies (3 sources) Multiple congenital cysts of kidney; Translations: [Polycystic kidney, unspecified] 08-26-2018 Chronic Hypertension with complications and secondary hypertension (2 sources) Hypertensive emergency; Translations: [Hypertensive emergency] 08-26-2018 Chronic Other aftercare (6 sources) 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; 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 AFTERCARE FL OTH ORGN TRANSPL] Onset: 10-04-19 Chronic Other aftercare (4 sources) Encounter for aftercare following kidney transplant; 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 AFTERCARE FLW KIDNEY TRANSPL] Onset: 03-08-20 Chronic Other connective tissue disease (2 sources) Swelling of upper limb; Translations: [Other specified soft tissue disorders] 11-10-2019 Episodic Other diseases of kidney and ureters (2 sources) Hyperparathyroidism due to renal insufficiency; Translations: [Secondary hyperparathyroidism of renal origin] 08-26-2018 Chronic Other gastrointestinal disorders (2 sources) Diarrhea; Translations: [Diarrhea, unspecified] 03-05-2022 Episodic Other lower respiratory disease (2 sources) Acute cardiac pulmonary edema ; Translations: [Acute pulmonary edema] 08-26-2018 Episodic Pulmonary heart disease (4 sources) Primary pulmonary hypertension; Translations: [Pulmonary hypertension, unspecified] Onset: 10-05-19 Chronic Respiratory failure; insufficiency; arrest (adult) (2 sources) Acute respiratory failure; Translations: [Acute respiratory failure with hypoxia] 08-26-2018 Episodic Screening and history of mental health and substance abuse codes (2 sources) Ex-smoker; Translations: [Personal history of nicotine dependence] 08-26-2018 Episodic Unclassified (1 source) Diarrhea, unspecified; Translations: [Diarrhea, unspecified] Onset: 03-05-20 Unclassified (1 source) Encounter for preprocedural laboratory examination; Translations: [Encounter for preprocedural laboratory examination] Onset: 03-01-20 Unclassified (1 source) CONTACT W/AND (SUSP) EXPOS COVID-19; Translations: [CONTACT W/AND (SUSP) EXPOS COVID-19] Onset: 11-17-19 Unclassified (2 sources) Kidney Follow-up; Translations: [Kidney Follow-up] Onset: 11-12-19 Past or Other Problems Problem Classification Problem Date Documented Da te Episodic/Chronic Nausea and vomiting (3 sources) Nausea with vomiting, unspecified; Translations: [NAUSEA WITH VOMITING UNSPECIFIED] Onset: 11-14-2021 Episodic Noninfectious gastroenteritis (1 source) Noninfective gastroenteritis and colitis, unspecified; Translations: [NONINFECTIVE GE AND COLITIS UNS] Onset: 11-16-2021 Episodic Other aftercare (1 source) Other long-term (current) drug therapy; Translations: [OTH [facility] CURRENT DRUG THERAPY] Onset: 03-10-2022 Episodic Other gastrointestinal disorders (3 sources) Diarrhea, unspecified; Translations: [Diarrhea] Onset: 11-16-2021 Resolved: 01-21-2022 Episodic Other gastrointestinal disorders (1 source) Fecal urgency Onset: 01-21-2022 Resolved: 01-21-2022 Episodic Other screening for suspected conditions (not mental disorders or infectious disease) (4 sources) Other specified abnormal findings of blood chemistry; Translations: [Encounter for screening for malignant neoplasm of other genitourinary organs] Onset: 03-10-2022 Episodic Results Test Name Value Interpretation Reference Range Facility 3004-30-2023 30 Daily Case Managemen t Update Multidisciplinary rounds have been completed. Barriers to Discharge: MR for DC Home to follow up with Unit Reactor Operator on Friday. New Diabetic Supply Scripts have been faxed to his pharmacy in [place], [place]. Diet: Dietary Orders (From admission, onward) Start Ordered 04/29/23 171 Special Kitchen Request Once Comments: Please send a salad with ham, roque, shredded cheddar cheese and onions with macedonian dressing. Layered chocolate cake and a diet cristiano vincenzo. 04/29/23 17104/28/23 1858 Regular Diet HF/Cirrhosis/CKD/ESRD (2gm NA); Diabetic Male (carb 60g/meal) Diet effective now Question Answer Comment Room Service? Yes Sodium restriction: HF/Cirrhosis/CKD/ESRD (2gm NA) Carbohydrate restriction: Diabetic Male (carb 60g/meal) 04/28/23 1858 Physician Expected Discharge Date: 04/30/2023 Discharge Delays: PT Six Click Score: OT Six Click Score: PT Recommendations: OT Recommendations: New Consults: Consult Orders (From admission, onward) Start Ordered 04/27/23 2314 Inpatient consult to Nephrology Once Specialty: Nephrology Provider: (Not yet assigned) Question Answer Comment Consulting Group NEPHROLOGY TEAM Reason for Consult? esrd post transplant with DAVID Level of Consultation Consultation and Management 04/27/23 2313 Ancillary Consults (From admission, onward) Start Ordered 04/30/23 1110 Inpatient consult to Clinical Dietitian Once Comments: Pending discharge Provider: (Not yet assigned) Question: Reason for Consult? Answer: New diagnosis DM2 04/30/23 1109 Normal [facility] 30 Problem: Pain - Adul t Goal: Verbalizes/displays adequate comfort level or baseline comfort level Outcome: Progressing Problem: Safety - Adult Goal: Free from fall injury Outcome: Progressing Problem: Discharge Planning Goal: Discharge to home or other facility with appropriate resources Outcome: Progressing Problem: Chronic Conditions and Co-morbidities Goal: Patient's chronic conditions and co-morbidity symptoms are monitored and maintained or improved Outcome: Progressing Normal [facility] BASIC METABOLIC PANELon 12-2 Anion gap [Moles/Vol] 12 mmol/L Normal 7-20 [facility] Comment on above: Performed By: #### L [id number] #### [facility] ([facility]) [address] [place] [address] Calcium [Mass/Vol] 8.7 mg/dL Normal 8.6-10.3 [facility] Comment on above: Performed By: #### L [id number] #### [facility] ([facility] [place]) [address] [place] [address] Chloride [Moles/Vol] 102 mmol/L Normal 98-107 [facility] Comment on above: Performed By: #### L [id number] #### [facility] ([facility]) [address] [place] [address] CO2 [Moles/Vol] 24 mmol/L Normal 21-[address] [facility] Comment on above: Performed By: #### L [id number] #### [facility] ([facility]) [address] [place] [address] Creatinine [Mass/Vol] 0.80 mg/dL Normal 0.70-1.30 [facility] Comment on above: Performed By: #### L [id number] #### [facility] ([facility]) [address] [place] [address] GLOMERULAR FILTRATION RATE ML/MIN/1.73 SQ M.PREDICTED 94.6 mL/min/1.73m*2 Normal >60.0 [facility] Comment on above: Result Comment: The [facility]???s estimated glomerular filtration rate (eGFR) will no longer include consideration of race in its calculation. The National Kidney Foundation???s eGFR Task Force developed new recommendations for the estimation of the glomerular filtration rate in the [place] They recommend immediate implementation of the new equation refit without the race variable in all laboratories because the calculation does not include race. In addition to not including race in the calculation and reporting, it included diversity in its development, and has acceptable performance characteristics and potential consequences that do not disproportionately affect any one group of individuals. Performed By: #### L [id number] #### [facility] ([facility]) [address] [place] [address] Glucose [Mass/Vol] 160 mg/dL High 70-100 [facility] Comment on above: Performed By: #### L [id number] #### [facility] ([facility]) [address] [place] [address] Potassium [Moles/Vol] 4.2 mmol/L Normal 3.5-5.1 [facility] Comment on above: Performed By: #### L [id number] #### [facility] ([facility]) [address] [place] [address] Sodium [Moles/Vol] 134 mmol/L Low 136-145 [facility] Comment on above: Performed By: #### L [id number] #### [facility] ([facility]) [address] [place] [address] Urea nitrogen [Mass/Vol] 14 mg/dL Normal 7-25 [facility] Comment on above: Performed By: #### L [id number] #### [facility] ([facility]) [address] [place] [address] UREA NITROGEN/CREATININE (MASS RATIO) IN SER/PLAS 17.5 Normal [facility] Comment on above: Performed By: #### L [id number] #### [facility] ([facility]) [address] [place] [address] CBCon 04-30-2023 Erythrocyte distribution width (RBC) [Ratio] 13.0 % Normal 11.5-15.0 [facility] Comment on above: Performed By: #### L [id number] #### [facility] ([facility]) [address] [place] [address] ERYTHROCYTE MEAN CORPUSCULAR HEMOGLOBIN CONCENTRATION (G/DL) BY AUTOMATED 33.9 g/dL Normal 32.0-35.0 [facility] Comment on above: Performed By: #### L [id number] #### [facility] ([facility]) [address] [place] [address] Hematocrit (Bld) [Volume fraction] 28.0 % Low 39.0-55.0 [facility] Comment on above: Performed By: #### L [id number] #### [facility] ([facility]) [address] [place] [address] Hemoglobin (Bld) [Mass/Vol] 9.5 g/dL Low 13.0-17.0 [facility] Comment on above: Performed By: #### L [id number] #### [facility] ([facility]) [address] [place] [address] MCH (RBC) [Entitic mass] 29.3 pg Normal 27.0-33.0 [facility] Comment on above: Performed By: #### L [id number] #### [facility] ([facility]) [address] [place] [address] MCV (RBC) [Entitic vol] 86.4 fL Normal 82.0-98.0 [facility] Comment on above: Performed By: #### L [id number] #### [facility] ([facility]) [address] [place] [address] PLATELETS (10*3/UL) IN BLOOD AUTOMATED COUNT 232 10*3/uL Normal 150-400 [facility] Comment on above: Performed By: #### L [id number] #### [facility] ([facility]) [address] [place] [address] RBC (Bld) [#/Vol] 3.24 10*6/uL Low 4.20-5.70 [facility] Comment on above: Performed By: #### L [id number] #### [facility] ([facility]) [address] [place] [address] WBC (Bld) [#/Vol] 5.11 10*3/uL Normal 4.00-10.60 [facility] Comment on above: Performed By: #### L [id number] #### [facility] ([facility]) [address] [place] [address] MAGNESIUMon 04-30-2023 Magnesium [Mass/Vol] 1.2 mg/dL Low 1.9-2.7 [facility] Comment on above: Performed By: #### L [id number] ####[facility] ([facility])[address] [facility] [address] PHOSPHORUSon 04-30-2023 Magnesium [Mass/Vol] 3.3 mg/dL Normal 2.5-5.0 [facility] Comment on above: Performed By: #### L [id number] ####[facility] ([facility])[address] [place] [address] POCT GLUCOSE METER UNSOLICIT ED RESULTSon 04-30-2023 Glucose [Mass/Vol] 251 mg/dL High 70-105 [facility] Comment on above: Order Comment: Waive d Testing in the ED is performed under the ED CLIA certificate #[id number]. Result Comment: trob [email or web address] Performed By: #### L [id number] #### [facility] ([facility]) [address] [place] [address] Glucose [Mass/Vol] 146 mg/dL High 70-105 [facility] Comment on above: Order Comment: Waive d Testing in the ED is performed under the ED CLIA certificate #[id number]. Result Comment: trob [email or web address] Performed By: #### L [id number] #### [facility] ([facility]) [address] [place] [address] TACROLIMUS LEVELon 3 Tacrolimus (Bld) [Mass/Vol] 6.1 ng/mL Normal 5.0-20.0 [facility] Comment on above: Result Comment: The [employer] Tacrolimus assay is a delayed one-step immunoassay for the quantitative determination of tacrolimus in human whole blood using the chemiluminescent microparticle immunoassay (CMIA) technology with flexible assay protocols, referred to as Chemiflex. Performed By: #### L [id number] ####[facility] H[facility])[address] [place] [address] 30on 04-29-2023 30 Daily Case Managemen t Update Multidisciplinary rounds have been completed. Barriers to Discharge: await medical stability: monitor/control electrolytes (Na 133, K 4.5, Mg 1.7, Cr 0.96<1.36, Gl 175), Control glucose. Insulin gtt off yesterday. Dc Plan: Home no needs. Newly diagnosed Diabetic/DM Education. Diet: Dietary Orders (From admission, onward) Start Ordered 04/29/231711 Special Kitchen Request Once Comments: Please send a salad with ham, roque, shredded cheddar cheese and onions with macedonian dressing. Layered chocolate cake and a diet cristiano vincenzo. 04/29/23171304/28/231857 Regular Diet HF/Cirrhosis/CKD/ESRD (2gm NA); Diabetic Male (carb 60g/meal) Diet effective now Question Answer Comment Room Service? Yes Sodium restriction: HF/Cirrhosis/CKD/ESRD (2gm NA) Carbohydrate restriction: Diabetic Male (carb 60g/meal) 04/28/231857 Physician Expected Discharge Date: 05/01/2023 Discharge Delays: PT Six Click Score: OT Six Click Score: PT Recommendations: OT Recommendations: New Consults: Consult Orders (From admission, onward) Start Ordered 04/27/23 231 Inpatient consult to Nephrology Once Specialty: Nephrology Provider: (Not yet assigned) Question Answer Comment Consulting Group NEPHROLOGY TEAM Reason for Consult? esrd post transplant with DAVID Level of Consultation Consultation and Management 04/27/232312 Normal [facility] BASIC METABOLIC PANELon 04-11 Anion gap [Moles/Vol] 13 mmol/L Normal 7-20 [facility] Comment on above: Performed By: #### L [id number] #### [facility] ([facility]AKER) [address] [place] [address] Calcium [Mass/Vol] 8.7 mg/dL Normal 8.6-10.3 [facility] Comment on above: Performed By: #### L [id number] #### [facility] ([facility]) [address] [place] [address] Chloride [Moles/Vol] 103 mmol/L Normal 98-107 [facility] Comment on above: Performed By: #### L [id number] #### [facility] ([facility]) [address] [place] [address] CO2 [Moles/Vol] 22 mmol/L Normal 21-[address] [facility] Comment on above: Performed By: #### L [id number] #### [facility] ([facility]) [address] [place] [address] Creatinine [Mass/Vol] 0.96 mg/dL Normal 0.70-1.30 [facility] Comment on above: Performed By: #### L [id number] #### [facility] ([facility]) [address] [place] [address] GLOMERULAR FILTRATION RATE ML/MIN/1.73 SQ M.PREDICTED 84.5 mL/min/1.73m*2 Normal >60.0 [facility] Comment on above: Result Comment: The [facility]???s estimated glomerular filtration rate (eGFR) will no longer include consideration of race in its calculation. The National Kidney Foundation???s eGFR Task Force developed new recommendations for the estimation of the glomerular filtration rate in the [place] They recommend immediate implementation of the new equation refit without the race variable in all laboratories because the calculation does not include race. In addition to not including race in the calculation and reporting, it included diversity in its development, and has acceptable performance characteristics and potential consequences that do not disproportionately affect any one group of individuals. Performed By: #### L [id number] #### [facility] ([facility]) [address] [place] [address] Glucose [Mass/Vol] 175 mg/dL High 70-100 [facility] Comment on above: Performed By: #### L [id number] #### [facility] ([facility]) [address] [place] [address] Potassium [Moles/Vol] 4.5 mmol/L Normal 3.5-5.1 [facility] Comment on above: Performed By: #### L [id number] #### [facility] ([facility]) [address] [place] [address] Sodium [Moles/Vol] 133 mmol/L Low 136-145 [facility] Comment on above: Performed By: #### L [id number] #### [facility] ([facility]) [address] [place] [address] Urea nitrogen [Mass/Vol] 29 mg/dL High 7-25 [facility] Comment on above: Performed By: #### L [id number] #### [facility] ([facility]) [address] [place] [address] UREA NITROGEN/CREATININE (MASS RATIO) IN SER/PLAS 30.2 Normal [facility] Comment on above: Performed By: #### L [id number] #### [facility] ([facility]) [address] [place] [address] Anion gap [Moles/Vol] 16 mmol/L Normal 7-20 [facility] Comment on above: Performed By: #### L [id number] #### [facility] ([facility]) [address] [place] [address] Calcium [Mass/Vol] 8.7 mg/dL Normal 8.6-10.3 [facility] Comment on above: Performed By: #### L [id number] #### [facility] ([facility]AKER) [address] [place] [address] Chloride [Moles/Vol] 102 mmol/L Normal 98-107 [facility] Comment on above: Performed By: #### L [id number] #### [facility] ([facility]) [address] [place] [address] CO2 [Moles/Vol] 19 mmol/L Low 21-[address] [facility] Comment on above: Performed By: #### L [id number] #### [facility] ([facility]) [address] [place] [address] Creatinine [Mass/Vol] 1.02 mg/dL Normal 0.70-1.30 [facility] Comment on above: Performed By: #### L [id number] #### [facility] ([facility]) [address] [place] [address] GLOMERULAR FILTRATION RATE ML/MIN/1.73 SQ M.PREDICTED 78.6 mL/min/1.73m*2 Normal >60.0 [facility] Comment on above: Result Comment: The [facility]???s estimated glomerular filtration rate (eGFR) will no longer include consideration of race in its calculation. The National Kidney Foundation???s eGFR Task Force developed new recommendations for the estimation of the glomerular filtration rate in the [place] They recommend immediate implementation of the new equation refit without the race variable in all laboratories because the calculation does not include race. In addition to not including race in the calculation and reporting, it included diversity in its development, and has acceptable performance characteristics and potential consequences that do not disproportionately affect any one group of individuals. Performed By: #### L [id number] #### [facility] ([facility]) [address] [place] [address] Glucose [Mass/Vol] 206 mg/dL High 70-100 [facility] Comment on above: Performed By: #### L [id number] #### [facility] ([facility]) [address] [place] [address] Potassium [Moles/Vol] 4.8 mmol/L Normal 3.5-5.1 [facility] Comment on above: Performed By: #### L [id number] #### [facility] ([facility]) [address] [place] [address] Sodium [Moles/Vol] 132 mmol/L Low 136-145 [facility] Comment on above: Performed By: #### L [id number] #### [facility] ([facility]) [address] [place] [address] Urea nitrogen [Mass/Vol] 31 mg/dL High 7-25 [facility] Comment on above: Performed By: #### L [id number] #### [facility] ([facility]) [address] [place] [address] UREA NITROGEN/CREATININE (MASS RATIO) IN SER/PLAS 30.4 Normal [facility] Comment on above: Performed By: #### L [id number] #### [facility] ([facility]) [address] [place] [address] POCT GLUCOSE METER UNSOLICIT ED RESULTSon 04-29-2023 Glucose [Mass/Vol] 151 mg/dL High 70-105 [facility] Comment on above: Order Comment: Waive d Testing in the ED is performed under the ED CLIA certificate #[id number]. Result Comment: dcun dic Performed By: #### L [id number] #### [facility] ([facility]) [address] [facility] [place] [place] [address] Glucose [Mass/Vol] 166 mg/dL High 70-105 [facility] Comment on above: Order Comment: Waive d Testing in the ED is performed under the ED CLIA certificate #[id number]. Result Comment: lzar ate Performed By: #### L [id number] #### [facility] ([facility]) [address] [place] [address] Glucose [Mass/Vol] 147 mg/dL High 70-105 [facility] Comment on above: Order Comment: Waive d Testing in the ED is performed under the ED CLIA certificate #[id number]. Result Comment: [email or web address] Performed By: #### L [id number] #### [facility] ([facility]) [address] [place] [address] Glucose [Mass/Vol] 145 mg/dL High 70-105 [facility] Comment on above: Order Comment: Waive d Testing in the ED is performed under the ED CLIA certificate #[id number]. Result Comment: [email or web address] Performed By: #### L [id number] #### [facility] ([facility]) [address] [place] [address] TACROLIMUS LEVELon 3 Tacrolimus (Bld) [Mass/Vol] 8.6 ng/mL Normal 5.0-20.0 [facility] Comment on above: Result Comment: The [employer] Tacrolimus assay is a delayed one-step immunoassay for the quantitative determination of tacrolimus in human whole blood using the chemiluminescent microparticle immunoassay (CMIA) technology with flexible assay protocols, referred to as Chemiflex. Performed By: #### L [id number] ####[facility] ([facility])[address] [place] [address] APTTon 04-28-2023 ACTIVATED PARTIAL THROMBOPLASTIN TIME IN PPP BY COAGULATION ASSAY 26.1 Seconds Normal 25.0-35.0 [facility] Comment on above: Result Comment: Clin ical significance of the APTT is questionable in the presence of heparin. Performed By: #### L [id number] #### [facility] ([facility]) [address] [place] [address] B-TYPE NATRIURETIC PEPTIDEon 04-28-2023 Natriuretic peptide B (Bld) [Mass/Vol] 98 pg/mL Normal 0-100 [facility] Comment on above: Performed By: #### L [id number] #### [facility] ([facility]) [address] [place] [address] BASIC METABOLIC PANELon 04-11 Anion gap [Moles/Vol] 17 mmol/L Normal 7-20 [facility] Comment on above: Performed By: #### L [id number] #### [facility] ([facility]) [address] [place] [address] Calcium [Mass/Vol] 8.6 mg/dL Normal 8.6-10.3 [facility] Comment on above: Performed By: #### L [id number] #### [facility] ([facility]) [address] [place] [address] Chloride [Moles/Vol] 102 mmol/L Normal 98-107 [facility] Comment on above: Performed By: #### L [id number] #### [facility] ([facility]) [address] [place] [address] CO2 [Moles/Vol] 20 mmol/L Low 21-[address] [facility] Comment on above: Performed By: #### L [id number] #### [facility] ([facility]) [address] [place] [address] Creatinine [Mass/Vol] 1.07 mg/dL Normal 0.70-1.30 [facility] Comment on above: Performed By: #### L [id number] #### [facility] ([facility]) [address] [place] [address] GLOMERULAR FILTRATION RATE ML/MIN/1.73 SQ M.PREDICTED 74.2 mL/min/1.73m*2 Normal >60.0 [facility] Comment on above: Result Comment: The [facility]???s estimated glomerular filtration rate (eGFR) will no longer include consideration of race in its calculation. The National Kidney Foundation???s eGFR Task Force developed new recommendations for the estimation of the glomerular filtration rate in the [place] They recommend immediate implementation of the new equation refit without the race variable in all laboratories because the calculation does not include race. In addition to not including race in the calculation and reporting, it included diversity in its development, and has acceptable performance characteristics and potential consequences that do not disproportionately affect any one group of individuals. Performed By: #### L [id number] #### [facility] ([facility]) [address] [place] [address] Glucose [Mass/Vol] 144 mg/dL High 70-100 [facility] Comment on above: Performed By: #### L [id number] #### [facility] ([facility]) [address] [place] [address] Potassium [Moles/Vol] 4.7 mmol/L Normal 3.5-5.1 [facility] Comment on above: Performed By: #### L [id number] #### [facility] ([facility]) [address] [place] [address] Sodium [Moles/Vol] 134 mmol/L Low 136-145 [facility] Comment on above: Performed By: #### L [id number] #### [facility] ([facility]) [address] [place] [address] Urea nitrogen [Mass/Vol] 34 mg/dL High 7-25 [facility] Comment on above: Performed By: #### L [id number] #### [facility] ([facility]) [address] [place] [address] UREA NITROGEN/CREATININE (MASS RATIO) IN SER/PLAS 31.8 Normal [facility] Comment on above: Performed By: #### L [id number] #### [facility] ([facility]AKER) [address] [place] [address] Anion gap [Moles/Vol] 17 mmol/L Normal 7-20 [facility] Comment on above: Performed By: #### L [id number] #### [facility] ([facility]ER) [address] [place] [address] Calcium [Mass/Vol] 8.7 mg/dL Normal 8.6-10.3 [facility] Comment on above: Performed By: #### L [id number] #### [facility] ([facility]AKER) [address] [place] [address] Chloride [Moles/Vol] 100 mmol/L Normal 98-107 [facility] Comment on above: Performed By: #### L [id number] #### [facility] (BEAKER) [address] [place] [address] CO2 [Moles/Vol] 19 mmol/L Low 21-[address] [facility] Comment on above: Performed By: #### L [id number] #### [facility] (BEAKER) [address] [place] [address] Creatinine [Mass/Vol] 1.20 mg/dL Normal 0.70-1.30 [facility] Comment on above: Performed By: #### L [id number] #### [facility] ([facility]AKER) [address] [place] [address] GLOMERULAR FILTRATION RATE ML/MIN/1.73 SQ M.PREDICTED 64.7 mL/min/1.73m*2 Normal >60.0 [facility] Comment on above: Result Comment: The [facility]???s estimated glomerular filtration rate (eGFR) will no longer include consideration of race in its calculation. The National Kidney Foundation???s eGFR Task Force developed new recommendations for the estimation of the glomerular filtration rate in the [place] They recommend immediate implementation of the new equation refit without the race variable in all laboratories because the calculation does not include race. In addition to not including race in the calculation and reporting, it included diversity in its development, and has acceptable performance characteristics and potential consequences that do not disproportionately affect any one group of individuals. Performed By: #### L [id number] #### [facility] ([facility]) [address] [place] [address] Glucose [Mass/Vol] 237 mg/dL High 70-100 [facility] Comment on above: Performed By: #### L [id number] #### [facility] ([facility]) [address] [place] [address] Potassium [Moles/Vol] 4.4 mmol/L Normal 3.5-5.1 [facility] Comment on above: Performed By: #### L [id number] #### [facility] ([facility]) [address] [place] [address] Sodium [Moles/Vol] 132 mmol/L Low 136-145 [facility] Comment on above: Performed By: #### L [id number] #### [facility] ([facility]) [address] [place] [address] Urea nitrogen [Mass/Vol] 40 mg/dL High 7-25 [facility] Comment on above: Performed By: #### L [id number] #### [facility] ([facility]) [address] [place] [address] UREA NITROGEN/CREATININE (MASS RATIO) IN SER/PLAS 33.3 Normal [facility] Comment on above: Performed By: #### L [id number] #### [facility] ([facility]) [address] [place] [address] Anion gap [Moles/Vol] 20 mmol/L Normal 7-20 [facility] Comment on above: Performed By: #### L [id number] ####[facility] ([facility])[address] [place] [address] Calcium [Mass/Vol] 8.6 mg/dL Normal 8.6-10.3 [facility] Comment on above: Performed By: #### L [id number] ####[facility] (BEAKER)[address] [place] [address] Chloride [Moles/Vol] 101 mmol/L Normal 98-107 [facility] Comment on above: Performed By: #### L [id number] ####[facility] ([facility])[address] [place] [address] CO2 [Moles/Vol] 14 mmol/L Invalid Interpretation Code 21- [facility] Comment on above: Performed By: #### L [id number] ####[facility] ([facility])[address] [place] [address] Creatinine [Mass/Vol] 1.32 mg/dL High 0.70-1.30 [facility] Comment on above: Performed By: #### L [id number] ####[facility] ([facility])[address] [place] [address] GLOMERULAR FILTRATION RATE ML/MIN/1.73 SQ M.PREDICTED 57.7 mL/min/1.73m*2 Low >60.0 [facility] Comment on above: Result Comment: The [facility]???s estimated glomerular filtration rate (eGFR) will no longer include consideration of race in its calculation. The National Kidney Foundation???s eGFR Task Force developed new recommendations for the estimation of the glomerular filtration rate in the [place] They recommend immediate implementation of the new equation refit without the race variable in all laboratories because the calculation does not include race. In addition to not including race in the calculation and reporting, it included diversity in its development, and has acceptable performance characteristics and potential consequences that do not disproportionately affect any one group of individuals. Performed By: #### L [id number] ####[facility] ([facility])[address] [place] [address] Glucose [Mass/Vol] 332 mg/dL High 70-100 [facility] Comment on above: Performed By: #### L [id number] ####[facility] (BEAKER)[address] [place] [address] Potassium [Moles/Vol] 4.6 mmol/L Normal 3.5-5.1 [facility] Comment on above: Performed By: #### L [id number] ####[facility] (BEAKER)[address] [place] [address] Sodium [Moles/Vol] 130 mmol/L Low 136-145 [facility] Comment on above: Performed By: #### L [id number] ####[facility] (BEAKER)[address] [place] [address] Urea nitrogen [Mass/Vol] 43 mg/dL High 7-25 [facility] Comment on above: Performed By: #### L [id number] ####[facility] (BEAKER)[address] [place] [address] UREA NITROGEN/CREATININE (MASS RATIO) IN SER/PLAS 32.6 Normal [facility] Comment on above: Performed By: #### L [id number] ####[facility] (BEAKER)[address] [place] [address] Anion gap [Moles/Vol] 22 mmol/L High 7-20 [facility] Comment on above: Performed By: #### L [id number] ####[facility] (BEAKER)[address] [place] [address] Calcium [Mass/Vol] 8.9 mg/dL Normal 8.6-10.3 [facility] Comment on above: Performed By: #### L [id number] ####[facility] ([facility])[address] [place] [address] Chloride [Moles/Vol] 99 mmol/L Normal 98-107 [facility] Comment on above: Performed By: #### L [id number] ####[facility] (BEAKER)[address] [place] [address] CO2 [Moles/Vol] 13 mmol/L Invalid Interpretation Code 21-31 [facility] Comment on above: Performed By: #### L [id number] ####[facility] ([facility])[address] [place] [address] Creatinine [Mass/Vol] 1.33 mg/dL High 0.70-1.30 [facility] Comment on above: Performed By: #### L [id number] ####[facility] ([facility])[address] [place] [address] GLOMERULAR FILTRATION RATE ML/MIN/1.73 SQ M.PREDICTED 57.1 mL/min/1.73m*2 Low >60.0 [facility] Comment on above: Result Comment: The [facility]???s estimated glomerular filtration rate (eGFR) will no longer include consideration of race in its calculation. The National Kidney Foundation???s eGFR Task Force developed new recommendations for the estimation of the glomerular filtration rate in the [place] They recommend immediate implementation of the new equation refit without the race variable in all laboratories because the calculation does not include race. In addition to not including race in the calculation and reporting, it included diversity in its development, and has acceptable performance characteristics and potential consequences that do not disproportionately affect any one group of individuals. Performed By: #### L [id number] ####[facility] ([facility])[address] [place] [address] Glucose [Mass/Vol] 324 mg/dL High 70-100 [facility] Comment on above: Performed By: #### L [id number] ####[facility] ([facility])[address] [place] [address] Potassium [Moles/Vol] 5.7 mmol/L High 3.5-5.1 [facility] Comment on above: Performed By: #### L [id number] ####[facility] ([facility])[address] [place] [address] Sodium [Moles/Vol] 128 mmol/L Low 136-145 [facility] Comment on above: Performed By: #### L [id number] ####[facility] ([facility])[address] [place] [address] Urea nitrogen [Mass/Vol] 45 mg/dL High 7-25 [facility] Comment on above: Performed By: #### L [id number] ####[facility] ([facility])[address] [place] [address] UREA NITROGEN/CREATININE (MASS RATIO) IN SER/PLAS 33.8 Normal [facility] Comment on above: Performed By: #### L [id number] ####[facility] ([facility])[address] [place] [address] Anion gap [Moles/Vol] 23 mmol/L High 7-20 [facility] Comment on above: Performed By: #### L [id number] #### [facility] ([facility]) [address] [place] [address] Calcium [Mass/Vol] 8.8 mg/dL Normal 8.6-10.3 [facility] Comment on above: Performed By: #### L [id number] #### [facility] [facility] [address] [place] [address] Chloride [Moles/Vol] 99 mmol/L Normal 98-107 [facility] Comment on above: Performed By: #### L [id number] #### [facility] ([facility]) [address] [place] [address] CO2 [Moles/Vol] 13 mmol/L Invalid Interpretation Code [facility] Comment on above: Performed By: #### L [id number] #### [facility] ([facility]) [address] [place] [address] Creatinine [Mass/Vol] 1.31 mg/dL High 0.70-1.30 [facility] Comment on above: Performed By: #### L [id number] #### [facility] ([facility]) [address] [place] [address] GLOMERULAR FILTRATION RATE ML/MIN/1.73 SQ M.PREDICTED 58.2 mL/min/1.73m*2 Low >60.0 [facility] Comment on above: Result Comment: The [facility]???s estimated glomerular filtration rate (eGFR) will no longer include consideration of race in its calculation. The National Kidney Foundation???s eGFR Task Force developed new recommendations for the estimation of the glomerular filtration rate in the [place] They recommend immediate implementation of the new equation refit without the race variable in all laboratories because the calculation does not include race. In addition to not including race in the calculation and reporting, it included diversity in its development, and has acceptable performance characteristics and potential consequences that do not disproportionately affect any one group of individuals. Performed By: #### L [id number] #### [facility] ([facility]) [address] [place] [address] Glucose [Mass/Vol] 264 mg/dL High 70-100 [facility] Comment on above: Performed By: #### L [id number] #### [facility] ([facility]) [address] [place] [address] Potassium [Moles/Vol] 5.7 mmol/L High 3.5-5.1 [facility] Comment on above: Performed By: #### L [id number] #### [facility] ([facility]) [address] [place] [address] Sodium [Moles/Vol] 129 mmol/L Low 136-145 [facility] Comment on above: Performed By: #### L [id number] #### [facility] ([facility]) [address] [place] [address] Urea nitrogen [Mass/Vol] 44 mg/dL High 7-25 [facility] Comment on above: Performed By: #### L [id number] #### [facility] ([facility]) [address] [place] [address] UREA NITROGEN/CREATININE (MASS RATIO) IN SER/PLAS 33.6 Normal [facility] Comment on above: Performed By: #### L [id number] #### [facility] ([facility]) [address] [place] [address] BETA HYDROXYBUTYRATEon 04-28 BETA HYDROXYBUTYRATE (MMOL/L) IN SER/PLAS 6.22 mmol/L High 0.02-0.27 [facility] Comment on above: Performed By: #### L [id number] ####[facility] ([facility])[address] [place] [address] BLOOD CULTUREon 04-28-2023 Bacteria identified Cx Nom (Bld) No growth at 5 days Normal [facility] Comment on above: Performed By: #### L [id number] ####[facility] ([facility])[address] [place] [address] Bacteria identified Cx Nom (Bld) No growth at 5 days Normal [facility] Comment on above: Order Comment: From a different site than #1. Performed By: #### L [id number] #### [facility] ([facility]) [address] [place] [address] Bacteria identified Cx Nom (Bld) No growth at 5 days Normal [facility] Comment on above: Order Comment: From a different site than #1. Performed By: #### L [id number] #### [facility] ([facility]) [address] [place] [address] CBC WITH AUTO DIFFERENTIALon 04-28-2023 Basophils (Bld) [#/Vol] 0.04 10*3/uL Normal 0.00-0.20 [facility] Comment on above: Performed By: #### L [id number] ####[facility] ([facility])[address] [place] [address] Basophils/100 WBC (Bld) 0.4 % Normal 0.0-1.0 [facility] Comment on above: Performed By: #### L [id number] ####[facility] ([facility])[address] [place] [address] Eosinophils (Bld) [#/Vol] 0.09 10*3/uL Normal 0.00-0.50 [facility] Comment on above: Performed By: #### L [id number] ####[facility] ([facility])[address] [place] [address] Eosinophils/100 WBC (Bld) 1.0 % Normal 0.0-6.0 [facility] Comment on above: Performed By: #### L [id number] ####[facility] ([facility])[address] [place] [address] Erythrocyte distribution width (RBC) [Ratio] 13.1 % Normal 11.5-15.0 [facility] Comment on above: Performed By: #### L [id number] ####[facility] ([facility])[address] [place] [address] ERYTHROCYTE MEAN CORPUSCULAR HEMOGLOBIN CONCENTRATION (G/DL) BY AUTOMATED 33.9 g/dL Normal 32.0-35.0 [facility] Comment on above: Performed By: #### L [id number] ####[facility] ([facility])[address] [place] [address] Hematocrit (Bld) [Volume fraction] 32.7 % Low 39.0-55.0 [facility] Comment on above: Performed By: #### L [id number] ####[facility] ([facility])[address] [place] [address] Hemoglobin (Bld) [Mass/Vol] 11.1 g/dL Low 13.0-17.0 [facility] Comment on above: Performed By: #### L [id number] ####[facility] ([facility])[address] [place] [address] Immature granulocytes (Bld) [#/Vol] 0.15 10*3/uL Normal 0.00-0.20 [facility] Comment on above: Performed By: #### L [id number] ####[facility] ([facility])[address] [place] [address] Immature granulocytes/100 WBC (Bld) 1.6 % High 0.0-1.0 [facility] Comment on above: Performed By: #### L [id number] ####[facility] ([facility])[address] [place] [address] Lymphocytes (Bld) [#/Vol] 1.04 10*3/uL Low 1.20-4.00 [facility] Comment on above: Performed By: #### L [id number] ####[facility] ([facility])[address] [place] [address] Lymphocytes/100 WBC (Bld) 11.3 % Low 20.0-45.0 [facility] Comment on above: Performed By: #### L [id number] ####[facility] ([facility])[address] [place] [address] MCH (RBC) [Entitic mass] 29.3 pg Normal 27.0-33.0 [facility] Comment on above: Performed By: #### L [id number] ####[facility] ([facility])[address] [place] [address] MCV (RBC) [Entitic vol] 86.3 fL Normal 82.0-98.0 [facility] Comment on above: Performed By: #### L [id number] ####[facility] ([facility])[address] [place] [address] Monocytes (Bld) [#/Vol] 0.96 10*3/uL Normal 0.10-1.00 [facility] Comment on above: Performed By: #### L [id number] ####[facility] ([facility])[address] [place] [address] Monocytes/100 WBC (Bld) 10.5 % Normal 5.0-12.0 [facility] Comment on above: Performed By: #### L [id number] ####[facility] ([facility])[address] [place] [address] Neutrophils (Bld) [#/Vol] 6.90 10*3/uL Normal 1.60-7.60 [facility] Comment on above: Performed By: #### L [id number] ####[facility] ([facility])[address] [place] [address] Neutrophils/100 WBC (Bld) 75.2 % High 40.0-72.0 [facility] Comment on above: Performed By: #### L [id number] ####[facility] ([facility])[address] [place] [address] NRBC (PER 100 WBCS) BY AUTOMATED COUNT 0.0 % Normal 0 [facility] Comment on above: Performed By: #### L [id number] ####[facility] ([facility])[address] [place] [address] PLATELETS (10*3/UL) IN BLOOD AUTOMATED COUNT 301 10*3/uL Normal 150-400 [facility] Comment on above: Performed By: #### L [id number] ####[facility] ([facility])[address] [place] [address] RBC (Bld) [#/Vol] 3.79 10*6/uL Low 4.20-5.70 [facility] Comment on above: Performed By: #### L [id number] ####[facility] ([facility])[address] [place] [address] WBC (Bld) [#/Vol] 9.18 10*3/uL Normal 4.00-10.60 [facility] Comment on above: Performed By: #### L [id number] ####[facility] ([facility])[address] [place] [address] CMV DNA, QUALITATIVE, PCRon 04-28-2023 CYTOMEGALOVIRUS QUAL. PCR Not detected Normal [facility] Comment on above: Result Comment: NOT DETECTED - A negative result does not rule out the presence of PCR inhibitors in the patient specimen or assay specific nucleic acid in concentrations below the level of detection by the assay. INTERPRETIVE INFORMATION: Cytomegalovirus Detection by PCR This test was developed and its performance characteristics determined by [facility]. It has not been cleared or approved by the US Food and Drug Administration. This test was performed in a CLIA certified laboratory and is intended for clinical purposes. Performed By: [facility] [address] [place] [id number] Insurance Administrator: René Wick MD, PhD CLIA Number: [id number] Performed By: #### L [id number] #### [facility] ([facility]) [address] [place] [address] CYTOMEGALOVIRUS SOURCE Blood Normal [facility] Comment on above: Performed By: #### L [id number] #### [facility] ([facility]) [address] [place] [address] COMPREHENSIVE METABOLIC PANE Claudio 04-28-2023 Albumin [Mass/Vol] 3.8 g/dL Normal 3.5-5.7 [facility] Comment on above: Performed By: #### L [id number] #### [facility] ([facility]) [address] [place] [address] ALP [Catalytic activity/Vol] 100 U/L Normal 34-104 [facility] Comment on above: Performed By: #### L [id number] #### [facility] ([facility]) [address] [place] [address] ALT [Catalytic activity/Vol] 12 U/L Normal 7-52 [facility] Comment on above: Performed By: #### L [id number] #### [facility] ([facility]) [address] [place] [address] Anion gap [Moles/Vol] 15 mmol/L Normal 7-20 [facility] Comment on above: Performed By: #### L [id number] #### [facility] ([facility]) [address] [place] [address] Performed By: #### L [id number] #### [facility] ([facility]) [address] [place] [address] AST [Catalytic activity/Vol] 12 U/L Low 13-39 [facility] Comment on above: Performed By: #### L [id number] #### [facility] ([facility]) [address] [place] [address] Bilirubin [Mass/Vol] 0.4 mg/dL Normal 0.3-1.0 [facility] Comment on above: Performed By: #### L [id number] #### [facility] ([facility]) [address] [place] [address] Calcium [Mass/Vol] 8.6 mg/dL Normal 8.6-10.3 [facility] Comment on above: Performed By: #### L [id number] #### [facility] ([facility]) [address] [place] [address] Performed By: #### L [id number] #### [facility] ([facility]) [address] [place] [address] Chloride [Moles/Vol] 101 mmol/L Normal 98-107 [facility] Comment on above: Performed By: #### L [id number] #### [facility] ([facility]) [address] [place] [address] Performed By: #### L [id number] #### [facility] ([facility]) [address] [place] [address] CO2 [Moles/Vol] 18 mmol/L Low 21-[address] [facility] Comment on above: Performed By: #### L [id number] #### [facility] ([facility]) [address] [place] [address] Performed By: #### L [id number] #### [facility] ([facility]) [address] [place] [address] Creatinine [Mass/Vol] 1.36 mg/dL High 0.70-1.30 [facility] Comment on above: Performed By: #### L [id number] #### [facility] ([facility]) [address] [place] [address] Performed By: #### L [id number] #### [facility] ([facility]) [address] [place] [address] GLOMERULAR FILTRATION RATE ML/MIN/1.73 SQ M.PREDICTED 55.6 mL/min/1.73m*2 Low >60.0 [facility] Comment on above: Result Comment: The [facility]???s estimated glomerular filtration rate (eGFR) will no longer include consideration of race in its calculation. The National Kidney Foundation???s eGFR Task Force developed new recommendations for the estimation of the glomerular filtration rate in the [place] They recommend immediate implementation of the new equation refit without the race variable in all laboratories because the calculation does not include race. In addition to not including race in the calculation and reporting, it included diversity in its development, and has acceptable performance characteristics and potential consequences that do not disproportionately affect any one group of individuals. Performed By: #### L [id number] #### [facility] ([facility]) [address] [place] [address] Performed By: #### L [id number] #### [facility] ([facility]) [address] [place] [address] Glucose [Mass/Vol] 149 mg/dL High 70-100 [facility] Comment on above: Performed By: #### L [id number] #### [facility] ([facility]) [address] [place] [address] Performed By: #### L [id number] #### [facility] ([facility]) [address] [place] [address] Potassium [Moles/Vol] 4.8 mmol/L Normal 3.5-5.1 [facility] Comment on above: Performed By: #### L [id number] #### [facility] ([facility]) [address] [place] [address] Performed By: #### L [id number] #### [facility] ([facility]) [address] [place] [address] Protein [Mass/Vol] 6.0 g/dL Normal 6.0-8.3 [facility] Comment on above: Performed By: #### L [id number] #### [facility] ([facility]) [address] [place] [address] Sodium [Moles/Vol] 129 mmol/L Low 136-145 [facility] Comment on above: Performed By: #### L [id number] #### [facility] ([facility]) [address] [place] [address] Performed By: #### L [id number] #### [facility] ([facility]) [address] [place] [address] Urea nitrogen [Mass/Vol] 45 mg/dL High 7-25 [facility] Comment on above: Performed By: #### L [id number] #### [facility] ([facility]) [address] [place] [address] Performed By: #### L [id number] #### [facility] ([facility]) [address] [place] [address] UREA NITROGEN/CREATININE (MASS RATIO) IN SER/PLAS 33.1 Normal [facility] Comment on above: Performed By: #### L [id number] #### [facility] ([facility]) [address] [place] [address] Performed By: #### L [id number] #### [facility] ([facility]) [address] [place] [address] CONSULTon 04-28-2023 CONSULT - Attestation signed by Ananda Pan MD at 04/28/2023 8:22 PM (Updated) I personally saw and examined the patient on the same date of service as resident/fellow . I discussed the findings and therapeutic plan with the resident/fellow . I agree with the documentation, except for any edits/updates below. Teaching Physician's Revisions: Patient is status post donor renal transplant in 2020 who presented with diabetic ketoacidosis along with acute kidney injury. Patient has new onset diabetes mellitus. HbA1c is more than 14 now. He is on insulin drip and half-normal saline with bicarb. Anion gap metabolic acidosis in the setting of DKA. Would recommend to switch IV fluid to Plasma-Lyte. Continue current immunosuppressive medications including tacrolimus and Myfortic. Continue to monitor BMP every 4-6 hours Hold Tacrolimus am dose due to high levels. Check tacrolimus level Nephrology Consult Note Patient : Wm Suarez; 72 y.o. Location: 5172/5172-01 Attending: Esther Garduno MD Admit Date: 04/27/2023 Hospital Day: 1 Reason for Consult: ESRD s/p renal transplant with DAVID. History of Present Illness: HPI: Wm Suarez is a 72 y.o. male with PMHx ESRD d/t PKD s/p renal transplant 2019, HTN, HLD, CAD, PVD, COPD, pulmonary hypertension, HFrEF (EF 45%) and NIDDM2. Patient admitted on 04/27/2023 as a transfer from outside hospital in [place] for concerns of possible DKA, hyponatremia, and DAVID. Nephro consulted for assistance with management of immunosuppressants and DAVID. Interval history 04/28/2023: Patient was seen and examined at bedside. Patient reports over the past 3 weeks he has had worsening dysphagia and increasing nausea with vomiting. He states that he has had poor p.o. intake as a result. Otherwise he denies chest pain, shortness of breath, abdominal pain, recent illness/infection/wou nds. He states that prior to admission his diabetes was controlled with diet alone. He has been compliant with all of his immunosuppressive regimen including Myfortic and tacrolimus. He reports that he was taken off of prednisone. Overnight vitals significant for episodic tachypnea and hypotension now resolved and stable saturating well on room air. Intake of 174.7 mL output of 300 mL net -125.3 mL since admission. Admission weight 70.3 kg. Patient is currently on a continuous insulin infusion as well as sodium bicarb 100 mEq in 0.45% NS at 125 cc/h. Review of Systems: Review of Systems Constitutional: Positive for fatigue. Negative for chills and fever. HENT: Negative for congestion and sore throat. Respiratory: Negative for cough and shortness of breath. Cardiovascular: Negative for chest pain. Gastrointestinal: Positive for nausea and vomiting. Negative for abdominal pain, constipation and diarrhea. Genitourinary: Negative for dysuria, frequency and urgency. Musculoskeletal: Negative for arthralgias, back pain, myalgias and neck pain. Skin: Negative for rash. Neurological: Negative for dizziness, weakness, numbness and headaches. Input/Output: I/O last 3 completed shifts: In: 174.7 (2.5 mL/kg) [I.V.:66.7 (0.9 mL/kg); IV Piggyback:108] Out: 300 (4.3 mL/kg) [Urine:300 (0.1 mL/kg/hr)] Weight: 70.3 kg Vital Signs: Temperature: Temp: 36.9 ???C (98.4 ???F) TMax: Temp (24hrs), Av.8 ???C (98.3 ???F), Min:36.7 ???C (98.1 ???F), Max:37 ???C (98.6 ???F) Respirations: Resp: 12 Pulse: Heart Rate: 68 BP: BP: (!) 104/34 BP Range: Systolic (24hrs), Av , Min:104 , Max:130 Diastolic (24hrs), Av, Min:34, Max:70 Wt Readings from Last 3 Encounters: 04/27/23 70.3 kg (155 lb) 04/22/23 69.9 kg (154 lb) 11/11/22 77.7 kg (171 lb 6.4 oz) Physical Examination: Physical Exam Vitals and nursing note reviewed. Exam conducted with a food and nutrition services assistant present (Dr. Pan). Constitutional: General: He is not in acute distress. Appearance: Normal appearance. HENT: Head: Normocephalic and atraumatic. Mouth/Throat: Mouth: Mucous membranes are moist. Eyes: Extraocular Movements: Extraocular movements intact. Pupils: Pupils are equal, round, and reactive to light. Cardiovascular: Rate and Rhythm: Normal rate and regular rhythm. Pulses: Normal pulses. Heart sounds: Normal heart sounds. No murmur heard. No friction rub. No gallop. Pulmonary: Effort: Pulmonary effort is normal. Breath sounds: Normal breath sounds. No wheezing, rhonchi or rales. Abdominal: General: Bowel sounds are normal. There is no distension. Palpations: Abdomen is soft. There is no mass. Tenderness: There is no abdominal tenderness. There is no right CVA tenderness, left CVA tenderness or guarding. Musculoskeletal: Cervical back: Neck supple. Right lower leg: No edema. Left lower leg: No ed (more content not included)... Normal [facility] CREATININE, URINE, RANDOMon 04-28-2023 Creatinine (U) [Mass/Vol] 100.0 mg/dL Normal 26-299 [facility] Comment on above: Performed By: #### L [id number] #### [facility] ([facility]) [address] [place] [address] HEMOGLOBIN A1Con 04-28-2023 Glucose [Mass/Vol] 372 mg/dL Normal [facility] Comment on above: Order Comment: NO [facility] Performed By: #### L [id number] #### [facility] ([facility]) [address] [place] [address] HbA1c (Bld) [Mass fraction] 14.6 % High 4.0-6.0 [facility] Comment on above: Order Comment: NO [facility] Performed By: #### L [id number] #### [facility] ([facility]) [address] [place] [address] LACTIC ACID WITH 4 HOUR REFL EXon 04-28-2023 LACTATE (MMOL/L) IN SER/PLAS 0.8 mmol/L Normal 0.5-2.2 [facility] Comment on above: Performed By: #### L [id number] #### [facility] ([facility]) [address] [place] [address] MAGNESIUMon 04-28-2023 Magnesium [Mass/Vol] 1.7 mg/dL Low 1.9-2.7 [facility] Comment on above: Performed By: #### L [id number] ####[facility] ([facility])[address] [place] [address] NURSNOTEon 04-28-[address] Nguyen ( nephrology) regarding placing powerglide if pt a candidate, ok with placement on right arm. Normal [facility] OSMOLALITYon 12-18-2023 OSMOLALITY MEASURED 310 mOsm/kg High 275-295 [facility] Comment on above: Result Comment: Test Performed by [facility] [id number] [place] [address] - Released 04/28/2023 22:42 Performed By: #### L [id number] #### [facility] ([facility]) [address] [place] [address] OSMOLALITY, URINEon 04-28-20 23 OSMOLALITY, URINE 446 mOsm/kg Normal 80-1300 [facility] Comment on above: Result Comment: Test Performed by [facility] [id number] [place] [address] - Released 04/29/2023 03:35 Performed By: #### L [id number] #### [facility] ([facility]) [address] [place] [address] PHOSPHORUSon 04-28-2023 Magnesium [Mass/Vol] 3.7 mg/dL Normal 2.5-5.0 [facility] Comment on above: Performed By: #### L [id number] #### [facility] ([facility]) [address] [place] [address] POCT GLUCOSE METER UNSOLICIT ED RESULTSon 04-28-2023 Glucose [Mass/Vol] 141 mg/dL High 70-105 [facility] Comment on above: Order Comment: Waive d Testing in the ED is performed under the ED CLIA certificate #[id number]. Result Comment: ladarius benoit Performed By: #### L [id number] #### [facility] ([facility]AK[facility]) [address] [place] [address] Glucose [Mass/Vol] 99 mg/dL Normal 70-105 [facility] Comment on above: Order Comment: Waive d Testing in the ED is performed under the ED CLIA certificate #[id number]. Result Comment: besc obe Performed By: #### L [id number] #### [facility] ([facility]) [address] [place] [address] Glucose [Mass/Vol] 115 mg/dL High 70-105 [facility] Comment on above: Order Comment: Waive d Testing in the ED is performed under the ED CLIA certificate #[id number]. Result Comment: besc obe Performed By: #### L [id number] #### [facility] ([facility]) [address] [place] [address] Glucose [Mass/Vol] 145 mg/dL High 70-105 [facility] Comment on above: Order Comment: Waive d Testing in the ED is performed under the ED CLIA certificate #[id number]. Result Comment: wwar rad Performed By: #### L [id number] #### [facility] ([facility]) [address] [place] [address] Glucose [Mass/Vol] 165 mg/dL High 70-105 [facility] Comment on above: Order Comment: Waive d Testing in the ED is performed under the ED CLIA certificate #[id number]. Result Comment: besc obe Performed By: #### L [id number] ####[facility] ([facility])[address] [place] [address] Glucose [Mass/Vol] 203 mg/dL High 70-105 [facility] Comment on above: Order Comment: Waive d Testing in the ED is performed under the ED CLIA certificate #[id number]. Result Comment: [email or web address] Performed By: #### L [id number] #### [facility] ([facility]) [address] [place] [address] Glucose [Mass/Vol] 247 mg/dL High 70-105 [facility] Comment on above: Order Comment: Waive d Testing in the ED is performed under the ED CLIA certificate #[id number]. Result Comment: wwar rad Performed By: #### L [id number] ####[facility] ([facility])[address] [place] [address] Glucose [Mass/Vol] 315 mg/dL High 70-105 [facility] Comment on above: Order Comment: Waive d Testing in the ED is performed under the ED CLIA certificate #[id number]. Result Comment: wwar rad Performed By: #### L [id number] ####[facility] ([facility])[address] [place] [address] Glucose [Mass/Vol] 356 mg/dL High 70-105 [facility] Comment on above: Order Comment: Waive d Testing in the ED is performed under the ED CLIA certificate #[id number]. Result Comment: bushra rbo Performed By: #### L [id number] ####[facility] ([facility])[address] [place] [address] Glucose [Mass/Vol] 312 mg/dL High 70-105 [facility] Comment on above: Order Comment: Waive d Testing in the ED is performed under the ED CLIA certificate #[id number]. Result Comment: wwar rad Performed By: #### L [id number] #### [facility] ([facility]) [address] [place] [address] Glucose [Mass/Vol] 139 mg/dL High 70-105 [facility] Comment on above: Order Comment: Waive d Testing in the ED is performed under the ED CLIA certificate #[id number]. Result Comment: raza jordin Performed By: #### L [id number] #### [facility] ([facility]) [address] [place] [address] PROTEIN, URINE, RANDOMon Protein (U) [Mass/Vol] 47.2 mg/dL Normal [facility] Comment on above: Result Comment: Ther e are no established reference values for random urine specimens. Performed By: #### L [id number] #### [facility] ([facility]) [address] [place] [address] PROTIME-INRon 04-28-2023 INR IN PPP BY COAGULATION ASSAY 1.13 High 0.90-1.10 [facility] Comment on above: Result Comment: ACCC P RECOMMENDED INR FOR WARFARIN THERAPY CONDITION INR PROPHYLAXIS OF VENOUS THROMBOSIS 2-3 (HIGH-RISK SURGERY) TREATMENT OF VENOUS THROMBOSIS 2-3 TREATMENT OF PULMONARY EMBOLISM 2-3 PREVENTION OF SYSTEMIC EMBOLISM: 2-3 ACUTE MYOCARDIAL INFARCTION TISSUE HEART VALVES VALVULAR HEART DISEASE ATRIAL FIBRILLATION RECURRENT SYSTEMIC EMBOLISM MECHANICAL HEART VALVE 2.5-3.5 FROM: ORAL ANTICOAGULANTS. MECHANISM OF ACTION, CLINICAL EFFECTIVENESS, AND OPTIMAL THERAPEUTIC RANGE. CHEST 1995;108:231S-246S. Performed By: #### L [id number] #### [facility] ([facility]) [address] [place] [address] PROTHROMBIN TIME (PT) IN PPP BY COAGULATION ASSAY 14.5 Seconds Normal 12.3-14.8 [facility] Comment on above: Performed By: #### L [id number] #### [facility]) [address] [place] [address] PTH, INTACTon 04-28-2023 PARATHYRIN INTACT (PG/ML) IN SER/PLAS 48 pg/mL Normal [facility] Comment on above: Performed By: #### L [id number] #### [facility]) [address] [place] [address] SODIUM, URINE, RANDOMon 04-11 Sodium (U) [Moles/Vol] 35 mmol/L Normal [facility] Comment on above: Performed By: #### L [id number] #### [facility]) [address] [place] [address] TACROLIMUS LEVELon Tacrolimus (Bld) [Mass/Vol] 11.6 ng/mL Normal 5.0-20.0 [facility] Comment on above: Result Comment: The [employer] Tacrolimus assay is a delayed one-step immunoassay for the quantitative determination of tacrolimus in human whole blood using the chemiluminescent microparticle immunoassay (CMIA) technology with flexible assay protocols, referred to as Chemiflex. Performed By: #### L [id number] #### [facility] ([facility]) [address] [place] [address] TROPONIN Ion 04-28-2023 Troponin I.cardiac [Mass/Vol] 0.02 ng/mL Normal 0.00-0.04 [facility] Comment on above: Performed By: #### L [id number] #### [facility] ([facility]) [address] [place] [address] Troponin I.cardiac [Mass/Vol] 0.02 ng/mL Normal 0.00-0.04 [facility] Comment on above: Performed By: #### L [id number] #### [facility] ([facility]) [address] [place] [address] Troponin I.cardiac [Mass/Vol] 0.04 ng/mL Normal 0.00-0.04 [facility] Comment on above: Performed By: #### L [id number] ####[facility] ([facility])[address] [place] [address] URINALYSIS MICROSCOPIC WITH REFLEX CULTUREon 04-28-2023 CASTS IN URINE Normal [facility] Comment on above: Performed By: #### L [id number] ####[facility] ([facility])[address] [place] [address] CRYSTALS IN URINE Normal [facility] Comment on above: Performed By: #### L [id number] ####[facility] ([facility])[address] [place] [address] OTHER MICROSCOPIC ELEMENTS Normal [facility] Comment on above: Performed By: #### L [id number] ####[facility] ([facility])[address] [place] [address] RBC (#/HPF) IN URINE SEDIMENT 21-50 Abnormal None Seen [facility] Comment on above: Performed By: #### L [id number] ####[facility] ([facility])[address] [place] [address] SQUAMOUS EPITHELIAL CELLS (#/HPF) IN URINE SEDIMENT Occasional Normal None Seen, Occasional [facility] Comment on above: Performed By: #### L [id number] ####[facility] ([facility])[address] [place] [address] WBC (LEUKOCYTE) (#/HPF) IN URINE SEDIMENT 6-10 Abnormal None Seen [facility] Comment on above: Performed By: #### L [id number] ####[facility] ([facility])[address] [place] [address] URINALYSIS WITH REFLEX CULTU REon 04-28-2023 BILIRUBIN, TOTAL PRESENCE IN URINE Negative Normal Negative [facility] Comment on above: Performed By: #### L [id number] #### [facility] ([facility]) [address] [place] [address] Clarity (U) Clear Normal Clear [facility] Comment on above: Performed By: #### L [id number] #### [facility] ([facility]) [address] [place] [address] Color (U) Yellow Normal Yellow [facility] Comment on above: Performed By: #### L [id number] #### [facility] ([facility]) [address] [place] [address] Glucose (U) [Mass/Vol] Negative Normal Negative [facility] Comment on above: Performed By: #### L [id number] #### [facility] ([facility]) [address] [place] [address] HEMOGLOBIN PRESENCE IN URINE Moderate Abnormal Negative [facility] Comment on above: Performed By: #### L [id number] #### [facility] ([facility]) [address] [place] [address] Ketones Ql (U) 20 mg/dL Abnormal Negative [facility] Comment on above: Performed By: #### L [id number] #### [facility] ([facility]) [address] [place] [address] LEUKOCYTE ESTERASE PRESENCE IN URINE BY TEST STRIP Trace Abnormal Negative [facility] Comment on above: Performed By: #### L [id number] #### [facility] ([facility]AKER) [address] [place] [address] NITRITE PRESENCE IN URINE Negative Normal Negative [facility] Comment on above: Performed By: #### L [id number] #### [facility] ([facility]) [address] [place] [address] pH (U) 5.0 [pH] Normal 5.0-8.0 [facility] Comment on above: Performed By: #### L [id number] #### [facility] ([facility]ER) [address] [facility] [place] [place] [address] Protein (U) [Mass/Vol] 30 mg/dL Abnormal Negative [facility] Comment on above: Performed By: #### L [id number] #### [facility] ([facility]) [address] [facility] [place] [place] [address] Specific gravity (U) [Rel density] 1.015 Normal 1.015-1.020 [facility] Comment on above: Performed By: #### L [id number] #### [facility] ([facility]) [address] [place] [address] Office Visiton 04-22-2023 Follow-up visit [id number] Wm Suarez 1950 Date Provider Department Center 04/22/2023 [facility] FIGUER[facility] Family History Problem Relation Age of Onset Diabetes Mother Hypertension Mother Coronary artery disease Mother Other Mother Cystic kidney disease Mother Hypertension Father Skin cancer Father Cystic kidney disease Father Cystic kidney disease Sister Heart disease Brother ALS Brother Cystic kidney disease Brother Family Status - Relation Status Age at Mother Father Sister Brother Level of Service:[address] [place] OFFICE/OUTPATIENT ESTABLISHED LOW MDM 20-29 MIN Normal [facility] Documentationon 04-07-2023 Documentation [id number] Wm Suarez 1950 Date Provider Department Center 04/07/2023 [facility] None Family History Problem Relation Age of Onset Diabetes Mother Hypertension Mother Coronary artery disease Mother Other Mother Cystic kidney disease Mother Hypertension Father Skin cancer Father Cystic kidney disease Father Cystic kidney disease Sister Heart disease Brother ALS Brother Cystic kidney disease Brother Family Status - Relation Status Age at Mother Father Sister Brother Normal [facility] Orders Onlyon 04-02-2023 Orders Only [id number] Wm Suarez 1950 M Date Provider Department Center 04/02/2023 1971-LINK SUAREZ TXP None Family History Problem Relation Age of Onset Diabetes Mother Hypertension Mother Coronary artery disease Mother Other Mother Cystic kidney disease Mother Hypertension Father Skin cancer Father Cystic kidney disease Father Cystic kidney disease Sister Heart disease Brother ALS Brother Cystic kidney disease Brother Family Status - Relation Status Age at Mother Father Sister Brother Normal [facility] 29on 11-11-2022 29 Addended by: DI GALLO on: 11/11/2022 12:52 PM Modules accepted: Orders Normal [facility] BILIRUBIN, DIRECTon 11-12-19 23 Magnesium [Mass/Vol] 0.1 mg/dL Normal 0-0.2 [facility] Comment on above: Performed By: #### L [id number] #### [facility] ([facility]) [address] [place] [address] BK VIRUS, PLASMA, QUANTITATI VEon 11-11-2022 BK QUANTITATION Not detected Normal Not Detected [facility] Comment on above: Order Comment: DRAW Q 3 MONTHS MAY, August, November, FEBRUARY Result Comment: Meth od: BK virus was measured by quantitative polymerase chain reaction using a fluorescent hydrolysis probe targeting the polyomavirus BK ESTIMATOR JEWELRY-1 gene. The lower limit of quantitation of the assay is 500 copies of BK genome per milliliter of plasma or urine, and any detectable BK DNA below that level is reported as: Detected, <500 copies/ml. Serial BK virus measurement can be used to monitor disease activity. (Reference: Katina ramirezl. J CLIN MICRO 2004; 42:3692-4327). This test was developed and its performance characteristics determined by the [facility]. It has not been approved by the US Food and Drug Administration. However, such approval is not required for clinical implementation, and test results have been shown to be clinically useful. This laboratory is CAP accredited and CLIA certified to perform high complexity testing. Performed By: #### L [id number] ####[facility] ([facility])[address] [place] [address] BK QUANTITATION LOG Not detected Normal Not Detected [facility] Comment on above: Order Comment: DRAW Q 3 MONTHS MAY, August, November, FEBRUARY Performed By: #### L [id number] ####[facility] ([facility])[address] [place] [address] CBC WITH AUTO DIFFERENTIALon 11-11-2022 Basophils (Bld) [#/Vol] 0.02 10*3/uL Normal 0.00-0.20 [facility] Comment on above: Performed By: #### L [id number] ####[facility] ([facility])[address] [place] [address] Basophils/100 WBC (Bld) 0.3 % Normal 0.0-1.0 [facility] Comment on above: Performed By: #### L [id number] ####[facility] ([facility])[address] [place] [address] Eosinophils (Bld) [#/Vol] 0.09 10*3/uL Normal 0.00-0.50 [facility] Comment on above: Performed By: #### L [id number] ####[facility] ([facility])[address] [place] [address] Eosinophils/100 WBC (Bld) 1.5 % Normal 0.0-6.0 [facility] Comment on above: Performed By: #### L [id number] ####[facility] ([facility])[address] [place] [address] Erythrocyte distribution width (RBC) [Ratio] 13.2 % Normal 11.5-15.0 [facility] Comment on above: Performed By: #### L [id number] ####[facility] ([facility])[address] [place] [address] ERYTHROCYTE MEAN CORPUSCULAR HEMOGLOBIN CONCENTRATION (G/DL) BY AUTOMATED 32.9 g/dL Normal 32.0-35.0 [facility] Comment on above: Performed By: #### L [id number] ####[facility] (BEAKER)[address] [place] [address] Hematocrit (Bld) [Volume fraction] 35.9 % Low 39.0-55.0 [facility] Comment on above: Performed By: #### L [id number] ####[facility] (BEAKER)[address] [place] [address] Hemoglobin (Bld) [Mass/Vol] 11.8 g/dL Low 13.0-17.0 [facility] Comment on above: Performed By: #### L [id number] ####[facility] (BEAKER)[address] [place] [address] Immature granulocytes (Bld) [#/Vol] 0.07 10*3/uL Normal 0.00-0.20 [facility] Comment on above: Performed By: #### L [id number] ####[facility] ([facility]AKER)[address] [place] [address] Immature granulocytes/100 WBC (Bld) 1.2 % High 0.0-1.0 [facility] Comment on above: Performed By: #### L [id number] ####[facility] ([facility]AKER)[address] [place] [address] Lymphocytes (Bld) [#/Vol] 0.96 10*3/uL Low 1.20-4.00 [facility] Comment on above: Performed By: #### L [id number] ####[facility] (BEAKER)[address] [place] [address] Lymphocytes/100 WBC (Bld) 16.4 % Low 20.0-45.0 [facility] Comment on above: Performed By: #### L [id number] ####[facility] ([facility]AKER)[address] [place] [address] MCH (RBC) [Entitic mass] 28.6 pg Normal 27.0-33.0 [facility] Comment on above: Performed By: #### L [id number] ####[facility] ([facility]AKER)[address] [place] [address] MCV (RBC) [Entitic vol] 86.9 fL Normal 82.0-98.0 [facility] Comment on above: Performed By: #### L [id number] ####[facility] ([facility]AKER)[address] [place] [address] Monocytes (Bld) [#/Vol] 0.61 10*3/uL Normal 0.10-1.00 [facility] Comment on above: Performed By: #### L [id number] ####[facility] ([facility]ER)[address] [place] [address] Monocytes/100 WBC (Bld) 10.4 % Normal 5.0-12.0 [facility] Comment on above: Performed By: #### L [id number] ####[facility] ([facility]ER)[address] [place] [address] Neutrophils (Bld) [#/Vol] 4.12 10*3/uL Normal 1.60-7.60 [facility] Comment on above: Performed By: #### L [id number] ####[facility] ([facility]ER)[address] [place] [address] Neutrophils/100 WBC (Bld) 70.2 % Normal 40.0-72.0 [facility] Comment on above: Performed By: #### L [id number] ####[facility] ([facility]AKER)[address] [place] [address] NRBC (PER 100 WBCS) BY AUTOMATED COUNT 0.0 % Normal 0 [facility] Comment on above: Performed By: #### L [id number] ####[facility] ([facility]ER)[address] [place] [address] PLATELETS (10*3/UL) IN BLOOD AUTOMATED COUNT 232 10*3/uL Normal 150-400 [facility] Comment on above: Performed By: #### L [id number] ####[facility] ([facility]ER)[address] [place] [address] RBC (Bld) [#/Vol] 4.13 10*6/uL Low 4.20-5.70 [facility] Comment on above: Performed By: #### L [id number] ####[facility] ([facility])[address] [place] [address] WBC (Bld) [#/Vol] 5.87 10*3/uL Normal 4.00-10.60 [facility] Comment on above: Performed By: #### L [id number] ####[facility] ([facility])[address] [place] [address] COMPREHENSIVE METABOLIC PANE Claudio 11-11-2022 Albumin [Mass/Vol] 4.5 g/dL Normal 3.5-5.7 [facility] Comment on above: Performed By: #### L [id number] #### [facility] ([facility]) [address] [place] [address] ALP [Catalytic activity/Vol] 131 U/L High 34-104 [facility] Comment on above: Performed By: #### L [id number] #### [facility] ([facility]) [address] [place] [address] ALT [Catalytic activity/Vol] 16 U/L Normal 7-52 [facility] Comment on above: Performed By: #### L [id number] #### [facility] ([facility]) [address] [place] [address] Anion gap [Moles/Vol] 14 mmol/L Normal 7-20 [facility] Comment on above: Performed By: #### L [id number] #### [facility] ([facility]) [address] [place] [address] AST [Catalytic activity/Vol] 17 U/L Normal 13-39 [facility] Comment on above: Performed By: #### L [id number] #### [facility] ([facility]) [address] [place] [address] Bilirubin [Mass/Vol] 0.4 mg/dL Normal 0.3-1.0 [facility] Comment on above: Performed By: #### L [id number] #### [facility] ([facility]AKER) [address] [place] [address] Calcium [Mass/Vol] 8.0 mg/dL Low 8.6-10.3 [facility] Comment on above: Performed By: #### L [id number] #### [facility] (BEAKER) [address] [place] [address] Chloride [Moles/Vol] 95 mmol/L Low 98-107 [facility] Comment on above: Performed By: #### L [id number] #### [facility] ([facility]) [address] [place] [address] CO2 [Moles/Vol] 24 mmol/L Normal 21-[address] [facility] Comment on above: Performed By: #### L [id number] #### [facility] ([facility]) [address] [place] [address] Creatinine [Mass/Vol] 1.03 mg/dL Normal 0.70-1.30 [facility] Comment on above: Performed By: #### L [id number] #### [facility] ([facility]) [address] [place] [address] GLOMERULAR FILTRATION RATE ML/MIN/1.73 SQ M.PREDICTED 78.1 mL/min/1.73m*2 Normal >60.0 [facility] Comment on above: Result Comment: The [facility]???s estimated glomerular filtration rate (eGFR) will no longer include consideration of race in its calculation. The National Kidney Foundation???s eGFR Task Force developed new recommendations for the estimation of the glomerular filtration rate in the [place] They recommend immediate implementation of the new equation refit without the race variable in all laboratories because the calculation does not include race. In addition to not including race in the calculation and reporting, it included diversity in its development, and has acceptable performance characteristics and potential consequences that do not disproportionately affect any one group of individuals. Performed By: #### L [id number] #### [facility] ([facility]) [address] [place] [address] Glucose [Mass/Vol] 202 mg/dL High 70-100 [facility] Comment on above: Performed By: #### L [id number] #### [facility] ([facility]) [address] [facility] [place] [address] Potassium [Moles/Vol] 4.6 mmol/L Normal 3.5-5.1 [facility] Comment on above: Performed By: #### L [id number] #### [facility] ([facility]) [address] [place] [address] Protein [Mass/Vol] 6.7 g/dL Normal 6.0-8.3 [facility] Comment on above: Performed By: #### L [id number] #### [facility] ([facility]) [address] [facility] [place] [address] Sodium [Moles/Vol] 128 mmol/L Low 136-145 [facility] Comment on above: Performed By: #### L AB15 #### [facility] ([facility]) [address] [place] [address] Urea nitrogen [Mass/Vol] 11 mg/dL Normal 7-25 [facility] Comment on above: Performed By: #### L AB15 #### [facility] ([facility]) [address] [facility] [place] [address] UREA NITROGEN/CREATININE (MASS RATIO) IN SER/PLAS 10.7 Normal [facility] Comment on above: Performed By: #### L AB15 #### [facility] ([facility]) [address] [facility] [place] [address] Documentationon 11-11-2022 Documentation [id number] Wm Suarez 1950 M Date Provider Department Center 11/11/2022 Anamika-LINK SUAREZ None Family History Problem Relation Age of Onset Diabetes Mother Hypertension Mother Coronary artery disease Mother Other Mother Cystic kidney disease Mother Hypertension Father Skin cancer Father Cystic kidney disease Father Cystic kidney disease Sister Heart disease Brother ALS Brother Cystic kidney disease Brother Family Status - Relation Status Age at Mother Father Sister Brother Normal [facility] Documentation [id number] Wm Suarez 1950 M Date Provider Department Center 11/11/2022 [id number]-MEYER MICHELLETOMAS TXP None Family History Problem Relation Age of Onset Diabetes Mother Hypertension Mother Coronary artery disease Mother Other Mother Cystic kidney disease Mother Hypertension Father Skin cancer Father Cystic kidney disease Father Cystic kidney disease Sister Heart disease Brother ALS Brother Cystic kidney disease Brother Family Status - Relation Status Age at Mother Father Sister Brother Normal [facility] Follow-Upon 11-11-2022 Follow-Up [id number] Wm Suarez 1950 M Date Provider Department Center 11/11/2022 124-JERICHO ABAD TXP None Family History Problem Relation Age of Onset Diabetes Mother Hypertension Mother Coronary artery disease Mother Other Mother Cystic kidney disease Mother Hypertension Father Skin cancer Father Cystic kidney disease Father Cystic kidney disease Sister Heart disease Brother ALS Brother Cystic kidney disease Brother Family Status - Relation Status Age at Mother Father Sister Brother Level of Service:22816 [place] OFFICE/OUTPATIENT ESTABLISHED LOW MDM 20-29 MIN Reason for Visit and Comments: Kidney Follow-up [[id number]] - 6 mo follow No concerns Normal [facility] HEMOGLOBIN A1Con 11-11-2022 Glucose [Mass/Vol] 197 mg/dL Normal [facility] Comment on above: Order Comment: DRAW Q 3 MONTHS MAY, August, November, FEBRUARY Performed By: #### L [id number] #### [facility] ([facility]) [address] [place] [address] HbA1c (Bld) [Mass fraction] 8.5 % High 4.0-6.0 [facility] Comment on above: Order Comment: DRAW Q 3 MONTHS MAY, August, November, FEBRUARY Performed By: #### L [id number] #### [facility] ([facility]) [address] [place] [address] LIPID PANELon 11-11-2022 CHOL/HDL 2.2 mg/dL Normal [facility] Comment on above: Performed By: #### L AB18 #### [facility] ([facility]) [address] [place] [address] Cholesterol [Mass/Vol] 90 mg/dL Low 120-200 [facility] Comment on above: Performed By: #### L AB18 #### [facility] ([facility]) [address] [place] [address] Magnesium [Mass/Vol] 60 mg/dL Normal 40-149 [facility] Comment on above: Result Comment: TRIG LYCERIDE REFERENCE RANGE: 20 YEARS AND OLDER CARDIOVASCULAR RISK LESS THAN 150 mg/dL LOW RISK 150 TO 199 mg/dL BORDERLINE RISK 200 mg/dL AND GREATER HIGH RISK Performed By: #### L AB18 #### [facility] ([facility]) [address] [place] [address] Magnesium [Mass/Vol] 37 mg/dL Normal 0-160 [facility] Comment on above: Performed By: #### L AB18 #### [facility] ([facility]) [address] [place] [address] Magnesium [Mass/Vol] 41 mg/dL Normal 23-92 [facility] Comment on above: Performed By: #### L AB18 #### [facility] ([facility]) [address] [place] [address] NON HDL CHOL. (LDL+VLDL) 49 Normal [facility] Comment on above: Performed By: #### L AB18 #### [facility] ([facility]) [address] [facility] [place] [place] [address] TOTAL VLDL-C 12 mg/dL Normal 0-40 [facility] Comment on above: Performed By: #### L AB18 #### [facility] ([facility]) [address] [place] [address] Labon 11-11-2022 Lab [id number] Wm Suarez 1950 M Date Provider Department [place] 11/11/202285509-WWG DRAW STATION [facility] Family History Problem Relation Age of Onset Diabetes Mother Hypertension Mother Coronary artery disease Mother Other Mother Cystic kidney disease Mother Hypertension Father Skin cancer Father Cystic kidney disease Father Cystic kidney disease Sister Heart disease Brother ALS Brother Cystic kidney disease Brother Family Status - Relation Status Age at Mother Father Sister Brother Normal [facility] MAGNESIUMon 11-11-2022 Magnesium [Mass/Vol] 1.3 mg/dL Low 1.9-2.7 [facility] Comment on above: Performed By: #### L [id number] #### [facility] ([facility]) [address] [place] [address] Orders Onlyon 11-11-2022 Orders Only [id number] Wm Suarez 1950 M Date Provider Department Center 11/11/2022 Anamika-LINK SUAREZ TXP None Family History Problem Relation Age of Onset Diabetes Mother Hypertension Mother Coronary artery disease Mother Other Mother Cystic kidney disease Mother Hypertension Father Skin cancer Father Cystic kidney disease Father Cystic kidney disease Sister Heart disease Brother ALS Brother Cystic kidney disease Brother Family Status - Relation Status Age at Mother Father Sister Brother Normal [facility] PHOSPHORUSon 11-11-2022 Magnesium [Mass/Vol] 4.2 mg/dL Normal 2.5-5.0 [facility] Comment on above: Performed By: #### L AB113 ####[facility] ([facility])[address] [place] [address] TACROLIMUS LEVELon Tacrolimus (Bld) [Mass/Vol] 6.2 ng/mL Normal 5.0-20.0 [facility] Comment on above: Result Comment: DRAW Q 3 MONTHS MAY, August, November, FEBRUARY Performed By: #### L [id number] #### [facility] ([facility]) [address] [place] [address] URIC ACIDon 11-11-2022 Magnesium [Mass/Vol] 6.0 mg/dL Normal 4.4-7.6 [facility] Comment on above: Performed By: #### L [id number] #### [facility] ([facility]) [address] [facility] [place] [place] [address] 36on 10-09-2022 36 Per patient he has been getting labs done monthly at [facility]. Commissioning Agent called [facility] and spoke with medical records whom state they will fax over labs from May until now. Normal [facility] FK506 (TACROLIMUS) WHOLE BLO ODon 10-06-2022 Tacrolimus (FK506), Blood 3.8 ng/mL Normal 2.0-20.0 [facility] Comment on above: Result Comment: Trou gh (immediately following transplant) 15.0 . Trough (steady state, 2 weeks or more after transplant): 3.0 - 8.0 . Performed by LC-MS/MS technology. Performed By: #### U CLINT, CMP, LIPID, DBIL, PHOS, MG #### [facility] [address] [address] [address] Brea Causey Office Visiton 10-04-2022 Follow-up visit [id number] Wm Suarez 1950 M Date Provider Department Center 10/04/2022 MARIO SINGH [facility] Family History Problem Relation Age of Onset Diabetes Mother Hypertension Mother Coronary artery disease Mother Other Mother Cystic kidney disease Mother Hypertension Father Skin cancer Father Cystic kidney disease Father Cystic kidney disease Sister Heart disease Brother ALS Brother Cystic kidney disease Brother Family Status - Relation Status Age at Mother Father Sister Brother Level of Service:34234 [place] OFFICE/OUTPATIENT ESTABLISHED MOD MDM 30-39 MIN Reason for Visit and Comments: Coronary Artery Disease [187] Hypertension [838258] Congestive Heart Failure [127] Normal [facility] BILIRUBIN CONJUGATED (DIRECT )on 10-03-2022 BILI, CONJUGATED 0.1 mg/dL Normal 0.0-0.2 [facility] Comment on above: Performed By: #### C BC #### [facility] [address] [address] [address] Brea Causey CBC AUTO DIFFon 10-03-2022 BASO # 0.0 103/ul Normal 0.0-0.1 [facility] Comment on above: Performed By: #### U CLINT, CMP, LIPID, DBIL, PHOS, MG #### [facility] [address] [address] [address] Brea Causey Basophils/100 WBC (Bld) 0.5 % Normal 0.2-2.0 [facility] Comment on above: Performed By: #### U CLINT, CMP, LIPID, DBIL, PHOS, MG #### [facility] [address] [address] [address] Brea Causey EO # 0.1 103/ul Normal 0.0-0.7 [facility] Comment on above: Performed By: #### U CLINT, CMP, LIPID, DBIL, PHOS, MG #### [facility] [address] [address] [address] Brea Causey Eosinophils/100 WBC (Bld) 2.3 % Normal 0.9-7.0 [facility] Comment on above: Performed By: #### U CLINT, CMP, LIPID, DBIL, PHOS, MG #### [facility] [address] [address] [address] Brea Causey Erythrocyte distribution width (RBC) [Ratio] 13.2 % Normal 11.0-15.0 [facility] Comment on above: Performed By: #### U CLINT, CMP, LIPID, DBIL, PHOS, MG #### [facility] [address] [place] [address] Dr. Brea Causey Hematocrit (Bld) [Volume fraction] 35.0 % Critically low 42.0-54.0 [facility] Comment on above: Performed By: #### U CLINT, CMP, LIPID, DBIL, PHOS, MG #### [facility] [address] [place] [address] Dr. Brea Causey Hemoglobin (Bld) [Mass/Vol] 11.7 g/dL Critically low 14.0-18.0 [facility] Comment on above: Performed By: #### U CLINT, CMP, LIPID, DBIL, PHOS, MG #### [facility] [address] [place] [address] Dr. Brea Causey IG # 0.06 10e3/ul Critically high 0.00-0.03 [facility] Comment on above: Performed By: #### U CLINT, CMP, LIPID, DBIL, PHOS, MG #### [facility] [address] [place] [address] Dr. Brea Causey IG % 1.1 % Critically high 0.0-0.5 [facility] Comment on above: Performed By: #### U CLINT, CMP, LIPID, DBIL, PHOS, MG #### [facility] [address] [address] [address] Brea Causey LYMPH # 0.8 103/ul Critically low 1.2-3.8 [facility] Comment on above: Performed By: #### U CLINT, CMP, LIPID, DBIL, PHOS, MG #### [facility] [address] [place] [address] Dr. Brea Causey Lymphocytes/100 WBC (Bld) 14.9 % Critically low 20.5-60.0 [facility] Comment on above: Performed By: #### U CLINT, CMP, LIPID, DBIL, PHOS, MG #### [facility] [address] [place] [address] Dr. Brea Causey MANUAL DIFF REQ NO Normal [facility] Comment on above: Performed By: #### U CLINT, CMP, LIPID, DBIL, PHOS, MG #### [facility] [address] [place] [address] Dr. Brea Causey MCH (RBC) [Entitic mass] 28.8 pg Normal 25.9-34.0 [facility] Comment on above: Performed By: #### U CLINT, CMP, LIPID, DBIL, PHOS, MG #### [facility] [address] [place] [address] Dr. Brea Causey MCHC (RBC) [Mass/Vol] 33.4 g/dL Normal 29.9-35.2 [facility] Comment on above: Performed By: #### U CLINT, CMP, LIPID, DBIL, PHOS, MG #### [facility] [address] [place] [address] Dr. Brea Causey MCV (RBC) [Entitic vol] 86.2 fL Normal 80.0-94.0 [facility] Comment on above: Performed By: #### U CLINT, CMP, LIPID, DBIL, PHOS, MG #### [facility] [address] [place] [address] Dr. Brea Causey MONO # 0.5 103/ul Normal 0.3-0.8 [facility] Comment on above: Performed By: #### U CLINT, CMP, LIPID, DBIL, PHOS, MG #### [facility] [address] [address] [address] Brea Causey Monocytes/100 WBC (Bld) 9.1 % Normal 1.7-12.0 [facility] Comment on above: Performed By: #### U CLINT, CMP, LIPID, DBIL, PHOS, MG #### [facility] [address] [address] [address] Brea Causey NEUT # 4.1 103/ul Normal 1.4-6.5 [facility] Comment on above: Performed By: #### U CLINT, CMP, LIPID, DBIL, PHOS, MG #### [facility] [address] [place] [address] Dr. Brea Causey Neutrophils/100 WBC (Bld) 72.1 % Normal 43.0-75.0 [facility] Comment on above: Performed By: #### U CLINT, CMP, LIPID, DBIL, PHOS, MG #### [facility] [address] [place] [address] Dr. Brea Causey Platelet mean volume (Bld) [Entitic vol] 9.0 fL Critically low 9.5-13.5 [facility] Comment on above: Performed By: #### U CLINT, CMP, LIPID, DBIL, PHOS, MG #### [facility] [address] [address] [address] Brea Causey PLT 211 103/ul Normal 150-450 [facility] Comment on above: Performed By: #### U CLINT, CMP, LIPID, DBIL, PHOS, MG #### [facility] [address] [address] [address] Brea Causey RBC 4.06 106/ul Critically low 4.70-6.10 [facility] Comment on above: Performed By: #### U CLINT, CMP, LIPID, DBIL, PHOS, MG #### [facility] [address] [address] [address] Brea Causey WBC 5.6 103/ul Normal 4.0-11.0 [facility] Comment on above: Performed By: #### U CLINT, CMP, LIPID, DBIL, PHOS, MG #### [facility] [address] [place], [place] [address] Dr. Brea Causey LIPID PROFILEon 10-03-2022 CHOL-HDL RATIO NORM SEE BELOW Normal [facility] Comment on above: Result Comment: 3.3 - 4.4 LOW RISK 4.4 - 7.1 AVERAGE RISK 7.1 - 11.0 MODERATE RISK >11.0 HIGH RISK Performed By: #### C BC #### [facility] [address] [address] [address] Brea Causey Cholesterol [Mass/Vol] 93 mg/dL Normal <=200 [facility] Comment on above: Performed By: #### C BC #### [facility] [address] [address] [address] Brea Causey Cholesterol in HDL [Mass/Vol] 43 mg/dL Normal 40-60 [facility] Comment on above: Performed By: #### C BC #### [facility] [address] [address] [address] Brea Causey Cholesterol in LDL [Mass/Vol] 37.6 mg/dL Normal [facility] Comment on above: Performed By: #### C BC #### [facility] [address] [place], [place] [address] Dr. Brea Causey Cholesterol.total/Cho lesterol in HDL [Mass ratio] 2.2 {ratio} Normal [facility] Comment on above: Performed By: #### C BC #### [facility] [address] [place], [place] [address] Dr. Brea Causey HDL NORMAL > or = 60 mg/dl - LO W CARDIOVASCULAR RISK <40 mg/dl - HIGH CARDIOVASCULAR RISK Normal [facility] Comment on above: Performed By: #### C BC #### [facility] [address] [place], [place] [address] Dr. Brea Causey LDL CALC NORMAL SEE BELOW Normal [facility] Comment on above: Result Comment: <100 mg/dl OPTIMAL 100 - 129 mg/dl NEAR OR ABOVE OPTIMAL 130 - 159 mg/dl BORDERLINE HIGH 160 - 189 mg/dl HIGH >190 mg/dl VERY HIGH Performed By: #### C BC #### [facility] [address] [place] [address] Dr. Brea Causey Triglyceride [Mass/Vol] 62 mg/dL Normal <=150 [facility] Comment on above: Performed By: #### C BC #### [facility] [address] [place] [address] Dr. Brea Causey VLDL CALC 12.4 mg/dL Normal [facility] Comment on above: Performed By: #### C BC #### [facility] [address] [place] [address] Dr. Brea Causey MAGNESIUMon 10-03-2022 Magnesium [Mass/Vol] 1.5 mg/dL Critically low 1.8-2.4 [facility] Comment on above: Performed By: #### C BC #### [facility] [address] [place] [address] Dr. Brea Causey PHOSPHORUSon 10-03-2022 Phosphate [Mass/Vol] 4.4 mg/dL Normal 2.6-4.7 [facility] Comment on above: Performed By: #### C BC #### [facility] [address] [place] [address] Dr. Brea Causey PROF 14(COMP METB)on 023 Albumin [Mass/Vol] 3.8 g/dL Normal 3.4-5.0 [facility] Comment on above: Performed By: #### C BC #### [facility] [address] [place] [address] Dr. Brea Causey Albumin/Globulin [Mass ratio] 1.1 {ratio} Normal [facility] Comment on above: Performed By: #### C BC #### [facility] [address] [place] [address] Dr. Brea Causey ALP [Catalytic activity/Vol] 190 U/L Critically high 46-116 [facility] Comment on above: Performed By: #### C BC #### [facility] [address] [place] [address] Dr. Brea Causey ALT [Catalytic activity/Vol] 26 U/L Normal 16-63 [facility] Comment on above: Performed By: #### C BC #### [facility] [address] [place] [address] Dr. Brea Causey Anion gap [Moles/Vol] 15.3 mmol/L Normal [facility] Comment on above: Performed By: #### C BC #### [facility] [address] [place] [address] Dr. Brea Causey AST [Catalytic activity/Vol] 23 U/L Normal 15-37 [facility] Comment on above: Performed By: #### C BC #### [facility] [address] [place] [address] Dr. Brea Causey Bilirubin [Mass/Vol] 0.4 mg/dL Normal 0.2-1.0 [facility] Comment on above: Performed By: #### C BC #### [facility] [address] [place] [address] Dr. Brea Causey Calcium [Mass/Vol] 7.8 mg/dL Critically low 8.5-10.1 [facility] Comment on above: Performed By: #### C BC #### [facility] [address] [place] [address] Dr. Brea Causey Chloride [Moles/Vol] 97 mmol/L Critically low 98-107 [facility] Comment on above: Performed By: #### C BC #### [facility] [address] [place] [address] Dr. Brea Causey CO2 [Moles/Vol] 25.6 mmol/L Normal 21.0-32.0 [facility] Comment on above: Performed By: #### C BC #### [facility] [address] [place] [address] Dr. Brea Causey Creatinine [Mass/Vol] 1.03 mg/dL Normal 0.70-1.30 [facility] Comment on above: Performed By: #### C BC #### [facility] [address] [place] [address] Dr. Brea Causey EGFR-AF CHINESE >60 Normal >=[address] [facility] Comment on above: Performed By: #### C BC #### [facility] [address] [address] [address] Brea Causey EGFR-NON AF CHINESE >60 Normal >=60 [facility] Comment on above: Performed By: #### C BC #### [facility] [address] [address] [address] Brea Causey Globulin (S) [Mass/Vol] 3.6 g/dL Normal [facility] Comment on above: Performed By: #### C BC #### [facility] [address] [address] [address] Brea Causey Glucose [Mass/Vol] 188 mg/dL Critically high 74-106 [facility] Comment on above: Performed By: #### C BC #### [facility] [address] [address] [address] Brea Causey Potassium [Moles/Vol] 4.9 mmol/L Normal 3.5-5.1 [facility] Comment on above: Performed By: #### C BC #### [facility] [address] [address] [address] Brea Causey Protein [Mass/Vol] 7.4 g/dL Normal 6.4-8.2 [facility] Comment on above: Performed By: #### C BC #### [facility] [address] [place] [address] Dr. Brea Causey Sodium [Moles/Vol] 133 mmol/L Critically low 136-145 [facility] Comment on above: Performed By: #### C BC #### [facility] [address] [address] [address] Brea Causey Urea nitrogen [Mass/Vol] 11.0 mg/dL Normal 7.0-18.0 [facility] Comment on above: Performed By: #### C BC #### [facility] [address] [address] [address] Brea Causey Urea nitrogen/Creatinine [Mass ratio] 10.7 mg/mg Normal [facility] Comment on above: Performed By: #### C BC #### [facility] [address] [place] [address] Dr. Brea Causey URIC ACID SERUMon 10-03-2022 Urate [Mass/Vol] 5.7 mg/dL Normal 3.5-7.2 [facility] Comment on above: Performed By: #### C BC #### [facility] [address] [place] [address] Dr. Brea Causey BK VIRUS PCR QUANTon 023 BKV DNA QUANT PCR PLASMA Negative Normal Negative [facility] Comment on above: Result Comment: No B K DNA detected. . The linear range of the assay is 22 - 100,000,000 IU/mL. Performed By: #### U CLINT, CMP, LIPID, DBIL, PHOS, MG #### [facility] [address] [place] [address] Dr. Brea Causey Log10 BKV DNA Plasma Normal [facility] Comment on above: Performed By: #### U CLINT, CMP, LIPID, DBIL, PHOS, MG #### [facility] [address] [place] [address] Dr. Brea Causey FK506 (TACROLIMUS) WHOLE BLO ODon 09-02-2022 Tacrolimus (FK506), Blood 3.8 ng/mL Normal 2.0-20.0 [facility] Comment on above: Result Comment: Trou gh (immediately following transplant) 15.0 . Trough (steady state, 2 weeks or more after transplant): 3.0 - 8.0 . Performed by LC-MS/MS technology. Performed By: #### U CLINT, CMP, LIPID, DBIL, PHOS, MG #### [facility] [address] [place] [address] Dr. Brea Causey TESTOSTERONE, FREE,DIRECT, T OTALon 09-01-2022 Free Testosterone(Direct) 9.7 pg/mL Normal 6.6-18.1 [facility] Comment on above: Result Comment: Perf ormed at: BN Performed By: #### U CLINT, CMP, LIPID, DBIL, PHOS, MG #### [facility] [address] [place] [address] Dr. Brea Causey Testosterone [Mass/Vol] 565 ng/dL Normal 264-916 [facility] Comment on above: Result Comment: Adul t male reference interval is based on a population of healthy nonobese males (BMI <30) between 19 and 39 years old. daniel Harris.al. JCEM 2017,102;3841-6476. PMID: [id number]. Performed at: CB Performed By: #### U CLINT, CMP, LIPID, DBIL, PHOS, MG #### [facility] [address] [place] [address] Dr. Brea Causey BILIRUBIN CONJUGATED (DIRECT )on 08-30-2022 BILI, CONJUGATED 0.1 mg/dL Normal 0.0-0.2 [facility] Comment on above: Performed By: #### U CLINT, CMP, LIPID, DBIL, PHOS, MG #### [facility] [address] [place] [address] Dr. Brea Causey CBC AUTO DIFFon 08-30-2022 BASO # 0.0 103/ul Normal 0.0-0.1 [facility] Comment on above: Performed By: #### U CLINT, CMP, LIPID, DBIL, PHOS, MG #### [facility] [address] [address] [address] Brea Causey Basophils/100 WBC (Bld) 0.7 % Normal 0.2-2.0 [facility] Comment on above: Performed By: #### U CLINT, CMP, LIPID, DBIL, PHOS, MG #### [facility] [address] [place] [address] Dr. Brea Causey EO # 0.2 103/ul Normal 0.0-0.7 [facility] Comment on above: Performed By: #### U CLINT, CMP, LIPID, DBIL, PHOS, MG #### [facility] [address] [place] [address] Dr. Brea Causey Eosinophils/100 WBC (Bld) 3.6 % Normal 0.9-7.0 [facility] Comment on above: Performed By: #### U CLINT, CMP, LIPID, DBIL, PHOS, MG #### [facility] [address] [address] [address] Brea Causey Erythrocyte distribution width (RBC) [Ratio] 13.2 % Normal 11.0-15.0 [facility] Comment on above: Performed By: #### U CLINT, CMP, LIPID, DBIL, PHOS, MG #### [facility] [facility] [address] [address] [address] Brea Causey Hematocrit (Bld) [Volume fraction] 36.0 % Critically low 42.0-54.0 [facility] Comment on above: Performed By: #### U CLINT, CMP, LIPID, DBIL, PHOS, MG #### [facility] [address] [address] [address] Brea Causey Hemoglobin (Bld) [Mass/Vol] 12.2 g/dL Critically low 14.0-18.0 [facility] Comment on above: Performed By: #### U CLINT, CMP, LIPID, DBIL, PHOS, MG #### [facility] [address] [place] [address] Dr. Brea Causey IG # 0.07 10e3/ul Critically high 0.00-0.03 [facility] Comment on above: Performed By: #### U CLINT, CMP, LIPID, DBIL, PHOS, MG #### [facility] [address] [place] [address] Dr. Brea Causey IG % 1.2 % Critically high 0.0-0.5 [facility] Comment on above: Performed By: #### U CLINT, CMP, LIPID, DBIL, PHOS, MG #### [facility] [address] [place] [address] Dr. Brea Causey LYMPH # 0.9 103/ul Critically low 1.2-3.8 [facility] Comment on above: Performed By: #### U CLINT, CMP, LIPID, DBIL, PHOS, MG #### [facility] [address] [place] [address] Dr. Brea Causey Lymphocytes/100 WBC (Bld) 15.0 % Critically low 20.5-60.0 [facility] Comment on above: Performed By: #### U CLINT, CMP, LIPID, DBIL, PHOS, MG #### [facility] [address] [address] [address] Brea Causey MANUAL DIFF REQ NO Normal [facility] Comment on above: Performed By: #### U CLINT, CMP, LIPID, DBIL, PHOS, MG #### [facility] [address] [address] [address] Brea Causey MCH (RBC) [Entitic mass] 29.4 pg Normal 25.9-34.0 [facility] Comment on above: Performed By: #### U CLINT, CMP, LIPID, DBIL, PHOS, MG #### [facility] [address] [place] [address] Dr. Brea Causey MCHC (RBC) [Mass/Vol] 33.9 g/dL Normal 29.9-35.2 [facility] Comment on above: Performed By: #### U CLINT, CMP, LIPID, DBIL, PHOS, MG #### [facility] [address] [place] [address] Dr. Brea Causey MCV (RBC) [Entitic vol] 86.7 fL Normal 80.0-94.0 [facility] Comment on above: Performed By: #### U CLINT, CMP, LIPID, DBIL, PHOS, MG #### [facility] [address] [place] [address] Dr. Brea Causey MONO # 0.5 103/ul Normal 0.3-0.8 [facility] Comment on above: Performed By: #### U CLINT, CMP, LIPID, DBIL, PHOS, MG #### [facility] [address] [place] [address] Dr. Brea Causey Monocytes/100 WBC (Bld) 9.0 % Normal 1.7-12.0 [facility] Comment on above: Performed By: #### U CLINT, CMP, LIPID, DBIL, PHOS, MG #### [facility] [address] [place] [address] Dr. Brea Causey NEUT # 4.2 103/ul Normal 1.4-6.5 [facility] Comment on above: Performed By: #### U CLINT, CMP, LIPID, DBIL, PHOS, MG #### [facility] [address] [address] [address] Brea Causey Neutrophils/100 WBC (Bld) 70.5 % Normal 43.0-75.0 [facility] Comment on above: Performed By: #### U CLINT, CMP, LIPID, DBIL, PHOS, MG #### [facility] [address] [address] [address] Brea Causey Platelet mean volume (Bld) [Entitic vol] 8.7 fL Critically low 9.5-13.5 [facility] Comment on above: Performed By: #### U CLINT, CMP, LIPID, DBIL, PHOS, MG #### [facility] [address] [address] [address] Brea Causey PLT 247 103/ul Normal 150-450 [facility] Comment on above: Performed By: #### U CLINT, CMP, LIPID, DBIL, PHOS, MG #### [facility] [address] [address] [address] Brea Causey RBC 4.15 106/ul Critically low 4.70-6.10 [facility] Comment on above: Performed By: #### U CLINT, CMP, LIPID, DBIL, PHOS, MG #### [facility] [address] [address] [address] Brea Causey WBC 5.9 103/ul Normal 4.0-11.0 [facility] Comment on above: Performed By: #### U CLINT, CMP, LIPID, DBIL, PHOS, MG #### [facility] [address] [address] [address] Brea Causey GLYCOHEMOGLOBIN A1Con 2022 ADA RECOMMENDATION SEE BELOW Normal [facility] Comment on above: Result Comment: ADA RECOMMENDED LIMIT 4.0 - 6.0 ADA THERAPEUTIC TARGET < 7.0 ACTION SUGGESTED > 7.0 Performed By: #### U CLINT, CMP, LIPID, DBIL, PHOS, MG #### [facility] [address] [address] [address] Brea Causey Glucose [Mass/Vol] 177 mg/dL Normal [facility] Comment on above: Performed By: #### U CLINT, CMP, LIPID, DBIL, PHOS, MG #### [facility] [address] [address] [address] Brea Causey HbA1c (Bld) [Mass fraction] 7.8 % Critically high 4.5-6.2 [facility] Comment on above: Performed By: #### U CLINT, CMP, LIPID, DBIL, PHOS, MG #### [facility] [address] [address] [address] Brea Causey LIPID PROFILEon 08-30-2022 CHOL-HDL RATIO NORM SEE BELOW Normal [facility] Comment on above: Result Comment: 3.3 - 4.4 LOW RISK 4.4 - 7.1 AVERAGE RISK 7.1 - 11.0 MODERATE RISK >11.0 HIGH RISK Performed By: #### U CLNIT, CMP, LIPID, DBIL, PHOS, MG #### [facility] [address] [address] [address] Brea Causey Cholesterol [Mass/Vol] 96 mg/dL Normal <=200 [facility] Comment on above: Performed By: #### U CLINT, CMP, LIPID, DBIL, PHOS, MG #### [facility] [address] [address] [address] Brea Causey Cholesterol in HDL [Mass/Vol] 48 mg/dL Normal 40-60 [facility] Comment on above: Performed By: #### U CLINT, CMP, LIPID, DBIL, PHOS, MG #### [facility] [address] [address] [address] Brea Causey Cholesterol in LDL [Mass/Vol] 40.2 mg/dL Normal [facility] Comment on above: Performed By: #### U CLINT, CMP, LIPID, DBIL, PHOS, MG #### [facility] [address] [address] [address] Brea Causey Cholesterol.total/Cho lesterol in HDL [Mass ratio] 2.0 {ratio} Normal [facility] Comment on above: Performed By: #### U CLINT, CMP, LIPID, DBIL, PHOS, MG #### [facility] [address] [address] [address] Brea Causey HDL NORMAL > or = 60 mg/dl - LO W CARDIOVASCULAR RISK <40 mg/dl - HIGH CARDIOVASCULAR RISK Normal [facility] Comment on above: Performed By: #### U CLINT, CMP, LIPID, DBIL, PHOS, MG #### [facility] [address] [address] [address] Brea Causey LDL CALC NORMAL SEE BELOW Normal [facility] Comment on above: Result Comment: <100 mg/dl OPTIMAL 100 - 129 mg/dl NEAR OR ABOVE OPTIMAL 130 - 159 mg/dl BORDERLINE HIGH 160 - 189 mg/dl HIGH >190 mg/dl VERY HIGH Performed By: #### U CLINT, CMP, LIPID, DBIL, PHOS, MG #### [facility] [address] [address] [address] Brea Causey Triglyceride [Mass/Vol] 39 mg/dL Normal <=150 [facility] Comment on above: Performed By: #### U CLINT, CMP, LIPID, DBIL, PHOS, MG #### [facility] [address] [address] [address] Brea Causey VLDL CALC 7.8 mg/dL Normal [facility] Comment on above: Performed By: #### U CLINT, CMP, LIPID, DBIL, PHOS, MG #### [facility] [address] [address] [address] Brea Causey MAGNESIUMon 08-30-2022 Magnesium [Mass/Vol] 1.5 mg/dL Critically low 1.8-2.4 [facility] Comment on above: Performed By: #### U CLINT, CMP, LIPID, DBIL, PHOS, MG #### [facility] [address] [address] [address] Brea Causey PHOSPHORUSon 08-30-2022 Phosphate [Mass/Vol] 4.0 mg/dL Normal 2.6-4.7 [facility] Comment on above: Performed By: #### U CLINT, CMP, LIPID, DBIL, PHOS, MG #### [facility] [address] [place] [address] Dr. Brea Causey PROF 14(COMP METB)on 023 Albumin [Mass/Vol] 3.8 g/dL Normal 3.4-5.0 [facility] Comment on above: Performed By: #### U CLINT, CMP, LIPID, DBIL, PHOS, MG #### [facility] [address] [place] [address] Dr. Brea Causey Albumin/Globulin [Mass ratio] 1.1 {ratio} Normal [facility] Comment on above: Performed By: #### U CLINT, CMP, LIPID, DBIL, PHOS, MG #### [facility] [address] [place] [address] Dr. Brea Causey ALP [Catalytic activity/Vol] 177 U/L Critically high 46-116 [facility] Comment on above: Performed By: #### U CLINT, CMP, LIPID, DBIL, PHOS, MG #### [facility] [address] [place] [address] Dr. Brea Causey ALT [Catalytic activity/Vol] 27 U/L Normal 16-63 [facility] Comment on above: Performed By: #### U CLINT, CMP, LIPID, DBIL, PHOS, MG #### [facility] [address] [place] [address] Dr. Brea Causey Anion gap [Moles/Vol] 12.1 mmol/L Normal [facility] Comment on above: Performed By: #### U CLINT, CMP, LIPID, DBIL, PHOS, MG #### [facility] [address] [place] [address] Dr. Brea Causey AST [Catalytic activity/Vol] 19 U/L Normal 15-37 [facility] Comment on above: Performed By: #### U CLINT, CMP, LIPID, DBIL, PHOS, MG #### [facility] [address] [place] [address] Dr. Brea Causey Bilirubin [Mass/Vol] 0.3 mg/dL Normal 0.2-1.0 [facility] Comment on above: Performed By: #### U CLINT, CMP, LIPID, DBIL, PHOS, MG #### [facility] [address] [address] [address] Brea Causey Calcium [Mass/Vol] 8.0 mg/dL Critically low 8.5-10.1 [facility] Comment on above: Performed By: #### U CLINT, CMP, LIPID, DBIL, PHOS, MG #### [facility] [address] [address] [address] Brea Causey Chloride [Moles/Vol] 96 mmol/L Critically low 98-107 [facility] Comment on above: Performed By: #### U CLINT, CMP, LIPID, DBIL, PHOS, MG #### [facility] [address] [place] [address] Dr. Brea Causey CO2 [Moles/Vol] 28.0 mmol/L Normal 21.0-32.0 [facility] Comment on above: Performed By: #### U CLINT, CMP, LIPID, DBIL, PHOS, MG #### [facility] [address] [address] [address] Brea Causey Creatinine [Mass/Vol] 1.07 mg/dL Normal 0.70-1.30 [facility] Comment on above: Performed By: #### U CLINT, CMP, LIPID, DBIL, PHOS, MG #### [facility] [address] [place] [address] Dr. Brea Causey EGFR-AF CHINESE >60 Normal >=[address] [facility] Comment on above: Performed By: #### U CLINT, CMP, LIPID, DBIL, PHOS, MG #### [facility] [address] [place] [address] Dr. Brea Causey EGFR-NON AF CHINESE >60 Normal >=60 [facility] Comment on above: Performed By: #### U CLINT, CMP, LIPID, DBIL, PHOS, MG #### [facility] [address] [place] [address] Dr. Brea Causey Globulin (S) [Mass/Vol] 3.5 g/dL Normal [facility] Comment on above: Performed By: #### U CLINT, CMP, LIPID, DBIL, PHOS, MG #### [facility] [address] [address] [address] Brea Causey Glucose [Mass/Vol] 179 mg/dL Critically high 74-106 [facility] Comment on above: Performed By: #### U CLINT, CMP, LIPID, DBIL, PHOS, MG #### [facility] [address] [address] [address] Brea Causey Potassium [Moles/Vol] 5.1 mmol/L Normal 3.5-5.1 [facility] Comment on above: Performed By: #### U CLINT, CMP, LIPID, DBIL, PHOS, MG #### [facility] [address] [place] [address] Dr. Brea Causey Protein [Mass/Vol] 7.3 g/dL Normal 6.4-8.2 [facility] Comment on above: Performed By: #### U CLINT, CMP, LIPID, DBIL, PHOS, MG #### [facility] [address] [address] [address] Brea Causey Sodium [Moles/Vol] 131 mmol/L Critically low 136-145 [facility] Comment on above: Performed By: #### U CLINT, CMP, LIPID, DBIL, PHOS, MG #### [facility] [address] [place] [address] Dr. Brea Causey Urea nitrogen [Mass/Vol] 10.0 mg/dL Normal 7.0-18.0 [facility] Comment on above: Performed By: #### U CLINT, CMP, LIPID, DBIL, PHOS, MG #### [facility] [address] [address] [address] Brea Causey Urea nitrogen/Creatinine [Mass ratio] 9.3 mg/mg Normal [facility] Comment on above: Performed By: #### U CLINT, CMP, LIPID, DBIL, PHOS, MG #### [facility] [address] [place] [address] Dr. Brea Causey URIC ACID SERUMon 08-30-2022 Urate [Mass/Vol] 6.0 mg/dL Normal 3.5-7.[address] [facility] Comment on above: Performed By: #### U CLINT, CMP, LIPID, DBIL, PHOS, MG #### [facility] [address] [place] [address] Dr. Brea Causey FK506 (TACROLIMUS) WHOLE BLO ODon 08-03-2022 Tacrolimus (FK506), Blood 3.2 ng/mL Normal 2.0-20.0 [facility] Comment on above: Result Comment: Trou gh (immediately following transplant) 15.0 . Trough (steady state, 2 weeks or more after transplant): 3.0 - 8.0 . Performed by LC-MS/MS technology. Performed By: #### C BC #### [facility] [address] [place] [address] Dr. Brea Causey BILIRUBIN CONJUGATED (DIRECT )on 08-01-2022 BILI, CONJUGATED 0.1 mg/dL Normal 0.0-0.2 [facility] Comment on above: Performed By: #### U CLINT, CMP, LIPID, DBIL, PHOS, MG #### [facility] [address] [place] [address] Dr. Brea Causey CBC AUTO DIFFon 08-01-2022 BASO # 0.0 103/ul Normal 0.0-0.1 [facility] Comment on above: Performed By: #### C BC #### [facility] [address] [place] [address] Dr. Brea Causey Basophils/100 WBC (Bld) 0.7 % Normal 0.2-2.0 [facility] Comment on above: Performed By: #### C BC #### [facility] [address] [place] [address] Dr. Brea Causey EO # 0.1 103/ul Normal 0.0-0.7 [facility] Comment on above: Performed By: #### C BC #### [facility] [address] [place] [address] Dr. Brea Causey Eosinophils/100 WBC (Bld) 2.4 % Normal 0.9-7.0 [facility] Comment on above: Performed By: #### C BC #### [facility] [address] [address] [address] Brea Causey Erythrocyte distribution width (RBC) [Ratio] 13.3 % Normal 11.0-15.0 [facility] Comment on above: Performed By: #### C BC #### [facility] [address] [place] [address] Dr. Brea Causey Hematocrit (Bld) [Volume fraction] 36.5 % Critically low 42.0-54.0 [facility] Comment on above: Performed By: #### C BC #### [facility] [address] [place] [address] Dr. Brea Causey Hemoglobin (Bld) [Mass/Vol] 12.1 g/dL Critically low 14.0-18.0 [facility] Comment on above: Performed By: #### C BC #### [facility] [address] [place] [address] Dr. Brea Causey IG # 0.07 10e3/ul Critically high 0.00-0.03 [facility] Comment on above: Performed By: #### C BC #### [facility] [address] [place] [address] Dr. Brea Causey IG % 1.2 % Critically high 0.0-0.5 [facility] Comment on above: Performed By: #### C BC #### [facility] [address] [place] [address] Dr. Brea Causey LYMPH # 0.9 103/ul Critically low 1.2-3.8 [facility] Comment on above: Performed By: #### C BC #### [facility] [address] [place] [address] Dr. Brea Causey Lymphocytes/100 WBC (Bld) 14.5 % Critically low 20.5-60.0 [facility] Comment on above: Performed By: #### C BC #### [facility] [address] [place] [address] Dr. Brea Causey MANUAL DIFF REQ NO Normal [facility] Comment on above: Performed By: #### C BC #### [facility] [address] [place] [address] Dr. Brea Causey MCH (RBC) [Entitic mass] 28.8 pg Normal 25.9-34.0 [facility] Comment on above: Performed By: #### C BC #### [facility] [address] [place] [address] Dr. Brea Causey MCHC (RBC) [Mass/Vol] 33.2 g/dL Normal 29.9-35.2 [facility] Comment on above: Performed By: #### C BC #### [facility] [address] [place] [address] Dr. Brea Causey MCV (RBC) [Entitic vol] 86.9 fL Normal 80.0-94.0 [facility] Comment on above: Performed By: #### C BC #### [facility] [address] [place] [address] Dr. Brea Causey MONO # 0.6 103/ul Normal 0.3-0.8 [facility] Comment on above: Performed By: #### C BC #### [facility] [address] [place] [address] Dr. Brea Causey Monocytes/100 WBC (Bld) 10.3 % Normal 1.7-12.0 [facility] Comment on above: Performed By: #### C BC #### [facility] [address] [place] [address] Dr. Brea Causey NEUT # 4.2 103/ul Normal 1.4-6.5 [facility] Comment on above: Performed By: #### C BC #### [facility] [address] [place] [address] Dr. Brea Causey Neutrophils/100 WBC (Bld) 70.9 % Normal 43.0-75.0 [facility] Comment on above: Performed By: #### C BC #### [facility] [address] [place] [address] Dr. Brea Causey Platelet mean volume (Bld) [Entitic vol] 9.1 fL Critically low 9.5-13.5 [facility] Comment on above: Performed By: #### C BC #### [facility] [address] [address] [address] Brea Causey PLT 248 103/ul Normal 150-450 [facility] Comment on above: Performed By: #### C BC #### [facility] [address] [address] [address] Brea Causey RBC 4.20 106/ul Critically low 4.70-6.10 [facility] Comment on above: Performed By: #### C BC #### [facility] [address] [address] [address] Brea Causey WBC 5.9 103/ul Normal 4.0-11.0 [facility] Comment on above: Performed By: #### C BC #### [facility] [address] [place] [address] Dr. Brea Causey LIPID PROFILEon 08-01-2022 CHOL-HDL RATIO NORM SEE BELOW Normal [facility] Comment on above: Result Comment: 3.3 - 4.4 LOW RISK 4.4 - 7.1 AVERAGE RISK 7.1 - 11.0 MODERATE RISK >11.0 HIGH RISK Performed By: #### U CLINT, CMP, LIPID, DBIL, PHOS, MG #### [facility] [address] [place] [address] Dr. Brea Causey Cholesterol [Mass/Vol] 95 mg/dL Normal <=200 [facility] Comment on above: Performed By: #### U CLINT, CMP, LIPID, DBIL, PHOS, MG #### [facility] [address] [place] [address] Dr. Brea Causey Cholesterol in HDL [Mass/Vol] 49 mg/dL Normal 40-60 [facility] Comment on above: Performed By: #### U CLINT, CMP, LIPID, DBIL, PHOS, MG #### [facility] [address] [place] [address] Dr. Brea Causey Cholesterol in LDL [Mass/Vol] 35.4 mg/dL Normal [facility] Comment on above: Performed By: #### U CLINT, CMP, LIPID, DBIL, PHOS, MG #### [facility] [address] [address] [address] Brea Causey Cholesterol.total/Cho lesterol in HDL [Mass ratio] 1.9 {ratio} Normal [facility] Comment on above: Performed By: #### U CLINT, CMP, LIPID, DBIL, PHOS, MG #### [facility] [address] [address] [address] Brea Causey HDL NORMAL > or = 60 mg/dl - LO W CARDIOVASCULAR RISK <40 mg/dl - HIGH CARDIOVASCULAR RISK Normal [facility] Comment on above: Performed By: #### U CLINT, CMP, LIPID, DBIL, PHOS, MG #### [facility] [address] [address] [address] Brea Causey LDL CALC NORMAL SEE BELOW Normal [facility] Comment on above: Result Comment: <100 mg/dl OPTIMAL 100 - 129 mg/dl NEAR OR ABOVE OPTIMAL 130 - 159 mg/dl BORDERLINE HIGH 160 - 189 mg/dl HIGH >190 mg/dl VERY HIGH Performed By: #### U CLINT, CMP, LIPID, DBIL, PHOS, MG #### [facility] [address] [address] [address] Brea Causey Triglyceride [Mass/Vol] 53 mg/dL Normal <=150 [facility] Comment on above: Performed By: #### U CLINT, CMP, LIPID, DBIL, PHOS, MG #### [facility] [address] [address] [address] Brea Causey VLDL CALC 10.6 mg/dL Normal [facility] Comment on above: Performed By: #### U CLINT, CMP, LIPID, DBIL, PHOS, MG #### [facility] [address] [address] [address] Brea Causey MAGNESIUMon 08-01-2022 Magnesium [Mass/Vol] 1.5 mg/dL Critically low 1.8-2.4 [facility] Comment on above: Performed By: #### U CLINT, CMP, LIPID, DBIL, PHOS, MG #### [facility] [address] [address] [address] Brea Causey PHOSPHORUSon 08-01-2022 Phosphate [Mass/Vol] 3.8 mg/dL Normal 2.6-4.7 [facility] Comment on above: Performed By: #### U CLINT, CMP, LIPID, DBIL, PHOS, MG #### [facility] [address] [place] [address] Dr. Brea Causey PROF 14(COMP METB)on 023 Albumin [Mass/Vol] 4.1 g/dL Normal 3.4-5.0 [facility] Comment on above: Performed By: #### U CLINT, CMP, LIPID, DBIL, PHOS, MG #### [facility] [address] [place] [address] Dr. Brea Causey Albumin/Globulin [Mass ratio] 1.3 {ratio} Normal [facility] Comment on above: Performed By: #### U CLINT, CMP, LIPID, DBIL, PHOS, MG #### [facility] [address] [place] [address] Dr. Brea Causey ALP [Catalytic activity/Vol] 197 U/L Critically high 46-116 [facility] Comment on above: Performed By: #### U CLINT, CMP, LIPID, DBIL, PHOS, MG #### [facility] [address] [place] [address] Dr. Brea Causey ALT [Catalytic activity/Vol] 26 U/L Normal 16-63 [facility] Comment on above: Performed By: #### U CLINT, CMP, LIPID, DBIL, PHOS, MG #### [facility] [address] [place] [address] Dr. Brea Causey Anion gap [Moles/Vol] 12.6 mmol/L Normal [facility] Comment on above: Performed By: #### U CLINT, CMP, LIPID, DBIL, PHOS, MG #### [facility] [address] [place] [address] Dr. Brea Causey AST [Catalytic activity/Vol] 20 U/L Normal 15-37 [facility] Comment on above: Performed By: #### U CLINT, CMP, LIPID, DBIL, PHOS, MG #### [facility] [address] [address] [address] Brea Causey Bilirubin [Mass/Vol] 0.4 mg/dL Normal 0.2-1.0 [facility] Comment on above: Performed By: #### U CLINT, CMP, LIPID, DBIL, PHOS, MG #### [facility] [address] [place] [address] Dr. Brea Causey Calcium [Mass/Vol] 7.9 mg/dL Critically low 8.5-10.1 [facility] Comment on above: Performed By: #### U CLINT, CMP, LIPID, DBIL, PHOS, MG #### [facility] [address] [place] [address] Dr. Brea Causey Chloride [Moles/Vol] 97 mmol/L Critically low 98-107 [facility] Comment on above: Performed By: #### U CLINT, CMP, LIPID, DBIL, PHOS, MG #### [facility] [address] [place] [address] Dr. Brea Causey CO2 [Moles/Vol] 28.9 mmol/L Normal 21.0-32.[address] [facility] Comment on above: Performed By: #### U LCINT, CMP, LIPID, DBIL, PHOS, MG #### [facility] [address] [place] [address] Dr. Brea Causey Creatinine [Mass/Vol] 0.98 mg/dL Normal 0.70-1.30 [facility] Comment on above: Performed By: #### U CLINT, CMP, LIPID, DBIL, PHOS, MG #### [facility] [address] [place] [address] Dr. Brea Causey EGFR-AF CHINESE >60 Normal >=[address] [facility] Comment on above: Performed By: #### U CLINT, CMP, LIPID, DBIL, PHOS, MG #### [facility] [address] [place] [address] Dr. Brea Causey EGFR-NON AF CHINESE >60 Normal >=60 [facility] Comment on above: Performed By: #### U CLINT, CMP, LIPID, DBIL, PHOS, MG #### [facility] [address] [address] [address] Brea Causey Globulin (S) [Mass/Vol] 3.2 g/dL Normal [facility] Comment on above: Performed By: #### U CLINT, CMP, LIPID, DBIL, PHOS, MG #### [facility] [address] [place] [address] Dr. Brea Causey Glucose [Mass/Vol] 174 mg/dL Critically high 74-106 [facility] Comment on above: Performed By: #### U CLINT, CMP, LIPID, DBIL, PHOS, MG #### [facility] [address] [place] [address] Dr. Brea Causey Potassium [Moles/Vol] 4.5 mmol/L Normal 3.5-5.1 [facility] Comment on above: Performed By: #### U CLINT, CMP, LIPID, DBIL, PHOS, MG #### [facility] [address] [place] [address] Dr. Brea Causey Protein [Mass/Vol] 7.3 g/dL Normal 6.4-8.2 [facility] Comment on above: Performed By: #### U CLINT, CMP, LIPID, DBIL, PHOS, MG #### [facility] [address] [place] [address] Dr. Brea Causey Sodium [Moles/Vol] 134 mmol/L Critically low 136-145 [facility] Comment on above: Performed By: #### U CLINT, CMP, LIPID, DBIL, PHOS, MG #### [facility] [address] [place] [address] Dr. Brea Causey Urea nitrogen [Mass/Vol] 8.0 mg/dL Normal 7.0-18.0 [facility] Comment on above: Performed By: #### U CLINT, CMP, LIPID, DBIL, PHOS, MG #### [facility] [address] [place] [address] Dr. Brea Causey Urea nitrogen/Creatinine [Mass ratio] 8.2 mg/mg Normal [facility] Comment on above: Performed By: #### U CLINT, CMP, LIPID, DBIL, PHOS, MG #### [facility] [address] [place] [address] Dr. Brea Causey URIC ACID SERUMon 08-01-2022 Urate [Mass/Vol] 5.8 mg/dL Normal 3.5-7.[address] [facility] Comment on above: Performed By: #### U CLINT, CMP, LIPID, DBIL, PHOS, MG #### [facility] [address] [place] [address] Dr. Brea Causey FK506 (TACROLIMUS) WHOLE BLO ODon 07-07-2022 Tacrolimus (FK506), Blood 3.6 ng/mL Normal 2.0-20.0 [facility] Comment on above: Result Comment: Trou gh (immediately following transplant) 15.0 . Trough (steady state, 2 weeks or more after transplant): 3.0 - 8.0 . Performed by LC-MS/MS technology. Performed By: #### C BC #### [facility] [address] [place] [address] Dr. Brea Causey BILIRUBIN CONJUGATED (DIRECT )on 07-04-2022 BILI, CONJUGATED 0.1 mg/dL Normal 0.0-0.[address] [facility] Comment on above: Performed By: #### B KVIRUS #### [facility] [address] [place] [address] Dr. Brea Causey CBC AUTO DIFFon 07-04-2022 BASO # 0.0 103/ul Normal 0.0-0.1 [facility] Comment on above: Performed By: #### U CLINT, CMP, LIPID, DBIL, PHOS, MG #### [facility] [address] [place] [address] Dr. Brea Causey Basophils/100 WBC (Bld) 0.5 % Normal 0.2-2.0 [facility] Comment on above: Performed By: #### U CLINT, CMP, LIPID, DBIL, PHOS, MG #### [facility] [address] [place] [address] Dr. Brea Causey EO # 0.2 103/ul Normal 0.0-0.7 [facility] Comment on above: Performed By: #### U CLINT, CMP, LIPID, DBIL, PHOS, MG #### [facility] [address] [address] [address] Brea Causey Eosinophils/100 WBC (Bld) 2.6 % Normal 0.9-7.0 [facility] Comment on above: Performed By: #### U CLINT, CMP, LIPID, DBIL, PHOS, MG #### [facility] [address] [place] [address] Dr. Brea Causey Erythrocyte distribution width (RBC) [Ratio] 13.3 % Normal 11.0-15.0 [facility] Comment on above: Performed By: #### U CLINT, CMP, LIPID, DBIL, PHOS, MG #### [facility] [address] [place] [address] Dr. Brea Causey Hematocrit (Bld) [Volume fraction] 37.2 % Critically low 42.0-54.0 [facility] Comment on above: Performed By: #### U CLINT, CMP, LIPID, DBIL, PHOS, MG #### [facility] [address] [place] [address] Dr. Brea Cauesy Hemoglobin (Bld) [Mass/Vol] 12.4 g/dL Critically low 14.0-18.0 [facility] Comment on above: Performed By: #### U CLINT, CMP, LIPID, DBIL, PHOS, MG #### [facility] [address] [place] [address] Dr. Brea Causey IG # 0.09 10e3/ul Critically high 0.00-0.03 [facility] Comment on above: Performed By: #### U CLINT, CMP, LIPID, DBIL, PHOS, MG #### [facility] [address] [place] [address] Dr. Brea Causey IG % 1.4 % Critically high 0.0-0.5 [facility] Comment on above: Performed By: #### U CLINT, CMP, LIPID, DBIL, PHOS, MG #### [facility] [address] [place] [address] Dr. Brea Causey LYMPH # 1.0 103/ul Critically low 1.2-3.8 [facility] Comment on above: Performed By: #### U CLINT, CMP, LIPID, DBIL, PHOS, MG #### [facility] [address] [place] [address] Dr. Brea Causey Lymphocytes/100 WBC (Bld) 15.2 % Critically low 20.5-60.0 [facility] Comment on above: Performed By: #### U CLINT, CMP, LIPID, DBIL, PHOS, MG #### [facility] [address] [place] [address] Dr. Brea Causey MANUAL DIFF REQ NO Normal [facility] Comment on above: Performed By: #### U CLINT, CMP, LIPID, DBIL, PHOS, MG #### [facility] [address] [place] [address] Dr. Brea Causey MCH (RBC) [Entitic mass] 28.8 pg Normal 25.9-34.0 [facility] Comment on above: Performed By: #### U CLINT, CMP, LIPID, DBIL, PHOS, MG #### [facility] [address] [place] [address] Dr. Brea Causey MCHC (RBC) [Mass/Vol] 33.3 g/dL Normal 29.9-35.2 [facility] Comment on above: Performed By: #### U CLINT, CMP, LIPID, DBIL, PHOS, MG #### [facility] [address] [place] [address] Dr. Brea Causey MCV (RBC) [Entitic vol] 86.5 fL Normal 80.0-94.0 [facility] Comment on above: Performed By: #### U CLINT, CMP, LIPID, DBIL, PHOS, MG #### [facility] [address] [place] [address] Dr. Brea Causey MONO # 0.7 103/ul Normal 0.3-0.8 [facility] Comment on above: Performed By: #### U CLINT, CMP, LIPID, DBIL, PHOS, MG #### [facility] [address] [address] [address] Brea Causey Monocytes/100 WBC (Bld) 10.0 % Normal 1.7-12.0 [facility] Comment on above: Performed By: #### U CLINT, CMP, LIPID, DBIL, PHOS, MG #### [facility] [address] [place] [address] Dr. Brea Causey NEUT # 4.6 103/ul Normal 1.4-6.5 [facility] Comment on above: Performed By: #### U CLINT, CMP, LIPID, DBIL, PHOS, MG #### [facility] [address] [place] [address] Dr. Brea Causey Neutrophils/100 WBC (Bld) 70.3 % Normal 43.0-75.0 [facility] Comment on above: Performed By: #### U CLINT, CMP, LIPID, DBIL, PHOS, MG #### [facility] [address] [place] [address] Dr. Brea Causey Platelet mean volume (Bld) [Entitic vol] 8.8 fL Critically low 9.5-13.5 [facility] Comment on above: Performed By: #### U CLINT, CMP, LIPID, DBIL, PHOS, MG #### [facility] [address] [place] [address] Dr. Brea Causey PLT 240 103/ul Normal 150-450 [facility] Comment on above: Performed By: #### U CLINT, CMP, LIPID, DBIL, PHOS, MG #### [facility] [address] [place] [address] Dr. Brea Causey RBC 4.30 106/ul Critically low 4.70-6.10 [facility] Comment on above: Performed By: #### U CLINT, CMP, LIPID, DBIL, PHOS, MG #### [facility] [address] [place] [address] Dr. Brea Causey WBC 6.5 103/ul Normal 4.0-11.0 [facility] Comment on above: Performed By: #### U CLINT, CMP, LIPID, DBIL, PHOS, MG #### [facility] [address] [address] [address] Brea Causey LIPID PROFILEon 07-04-2022 CHOL-HDL RATIO NORM SEE BELOW Normal [facility] Comment on above: Result Comment: 3.3 - 4.4 LOW RISK 4.4 - 7.1 AVERAGE RISK 7.1 - 11.0 MODERATE RISK >11.0 HIGH RISK Performed By: #### U CLINT, CMP, LIPID, DBIL, PHOS, MG #### [facility] [address] [address] [address] Brea Causey Cholesterol [Mass/Vol] 86 mg/dL Normal <=200 [facility] Comment on above: Performed By: #### U CLINT, CMP, LIPID, DBIL, PHOS, MG #### [facility] [address] [address] [address] Brea Causey Cholesterol in HDL [Mass/Vol] 44 mg/dL Normal 40-60 [facility] Comment on above: Performed By: #### U CLINT, CMP, LIPID, DBIL, PHOS, MG #### [facility] [address] [address] [address] Brea Causey Cholesterol in LDL [Mass/Vol] 28.0 mg/dL Normal [facility] Comment on above: Performed By: #### U CLINT, CMP, LIPID, DBIL, PHOS, MG #### [facility] [address] [address] [address] Brea Causey Cholesterol.total/Cho lesterol in HDL [Mass ratio] 2.0 {ratio} Normal [facility] Comment on above: Performed By: #### U CLINT, CMP, LIPID, DBIL, PHOS, MG #### [facility] [address] [address] [address] Brea Causey HDL NORMAL > or = 60 mg/dl - LO W CARDIOVASCULAR RISK <40 mg/dl - HIGH CARDIOVASCULAR RISK Normal [facility] Comment on above: Performed By: #### U CLINT, CMP, LIPID, DBIL, PHOS, MG #### [facility] [address] [address] [address] Brea Causey LDL CALC NORMAL SEE BELOW Normal [facility] Comment on above: Result Comment: <100 mg/dl OPTIMAL 100 - 129 mg/dl NEAR OR ABOVE OPTIMAL 130 - 159 mg/dl BORDERLINE HIGH 160 - 189 mg/dl HIGH >190 mg/dl VERY HIGH Performed By: #### U CLINT, CMP, LIPID, DBIL, PHOS, MG #### [facility] [address] [place] [address] Dr. Brea Causey Triglyceride [Mass/Vol] 70 mg/dL Normal <=150 [facility] Comment on above: Performed By: #### U CLINT, CMP, LIPID, DBIL, PHOS, MG #### [facility] [address] [place] [address] Dr. Brea Causey VLDL CALC 14.0 mg/dL Normal [facility] Comment on above: Performed By: #### U CLINT, CMP, LIPID, DBIL, PHOS, MG #### [facility] [address] [place] [address] Dr. Brea Causey MAGNESIUMon 07-04-2022 Magnesium [Mass/Vol] 1.4 mg/dL Critically low 1.8-2.4 [facility] Comment on above: Performed By: #### U CLINT, CMP, LIPID, DBIL, PHOS, MG #### [facility] [address] [place] [address] Dr. Brea Causey PHOSPHORUSon 07-04-2022 Phosphate [Mass/Vol] 4.1 mg/dL Normal 2.6-4.7 [facility] Comment on above: Performed By: #### U CLINT, CMP, LIPID, DBIL, PHOS, MG #### [facility] [address] [place] [address] Dr. Brea Causey PROF 14(COMP METB)on 023 Albumin [Mass/Vol] 4.0 g/dL Normal 3.4-5.0 [facility] Comment on above: Performed By: #### B KVIRUS #### [facility] [address] [place] [address] Dr. Brea Causey Albumin/Globulin [Mass ratio] 1.3 {ratio} Normal [facility] Comment on above: Performed By: #### B KVIRUS #### [facility] [address] [address] [address] Brea Causey ALP [Catalytic activity/Vol] 212 U/L Critically high 46-116 [facility] Comment on above: Performed By: #### B KVIRUS #### [facility] [address] [place] [address] Dr. Brea Causey ALT [Catalytic activity/Vol] 31 U/L Normal 16-63 [facility] Comment on above: Performed By: #### B KVIRUS #### [facility] [address] [address] [address] Brea Causey Anion gap [Moles/Vol] 11.9 mmol/L Normal [facility] Comment on above: Performed By: #### B KVIRUS #### [facility] [address] [place] [address] Dr. Brea Causey AST [Catalytic activity/Vol] 21 U/L Normal 15-37 [facility] Comment on above: Performed By: #### B KVIRUS #### [facility] [address] [place] [address] Dr. Brea Causey Bilirubin [Mass/Vol] 0.3 mg/dL Normal 0.2-1.0 [facility] Comment on above: Performed By: #### B KVIRUS #### [facility] [address] [place] [address] Dr. Brea Causey Calcium [Mass/Vol] 8.1 mg/dL Critically low 8.5-10.1 [facility] Comment on above: Performed By: #### B KVIRUS #### [facility] [address] [place] [address] Dr. Brea Causey Chloride [Moles/Vol] 97 mmol/L Critically low 98-107 [facility] Comment on above: Performed By: #### B KVIRUS #### [facility] [address] [place] [address] Dr. Brea Causey CO2 [Moles/Vol] 26.8 mmol/L Normal 21.0-32.0 [facility] Comment on above: Performed By: #### B KVIRUS #### [facility] [address] [address] [address] Brea Causey Creatinine [Mass/Vol] 0.99 mg/dL Normal 0.70-1.30 [facility] Comment on above: Performed By: #### B KVIRUS #### [facility] [address] [address] [address] Brea Causey EGFR-AF CHINESE >60 Normal >=60 [facility] Comment on above: Performed By: #### B KVIRUS #### [facility] [address] [place] [address] Dr. Brea Causey EGFR-NON AF CHINESE >60 Normal >=60 [facility] Comment on above: Performed By: #### B KVIRUS #### [facility] [address] [place] [address] Dr. Brea Causey Globulin (S) [Mass/Vol] 3.2 g/dL Normal [facility] Comment on above: Performed By: #### B KVIRUS #### [facility] [address] [place] [address] Dr. Brea Causey Glucose [Mass/Vol] 169 mg/dL Critically high 74-106 [facility] Comment on above: Performed By: #### B KVIRUS #### [facility] [address] [place] [address] Dr. Brea Causey Potassium [Moles/Vol] 4.7 mmol/L Normal 3.5-5.1 [facility] Comment on above: Performed By: #### B KVIRUS #### [facility] [address] [place] [address] Dr. Brea Causey Protein [Mass/Vol] 7.2 g/dL Normal 6.4-8.2 [facility] Comment on above: Performed By: #### B KVIRUS #### [facility] [address] [place] [address] Dr. Brea Causey Sodium [Moles/Vol] 131 mmol/L Critically low 136-145 [facility] Comment on above: Performed By: #### B KVIRUS #### [facility] [address] [place], [place] [id number] Dr. Brea Causey Urea nitrogen [Mass/Vol] 9.0 mg/dL Normal 7.0-18.0 [facility] Comment on above: Performed By: #### B KVIRUS #### [facility] [address] [place] [address] Dr. Brea Causey Urea nitrogen/Creatinine [Mass ratio] 9.1 mg/mg Normal [facility] Comment on above: Performed By: #### B KVIRUS #### [facility] [address] [address] [address] Brea Causey URIC ACID SERUMon 07-04-2022 Urate [Mass/Vol] 6.1 mg/dL Normal 3.5-7.[address] [facility] Comment on above: Performed By: #### U CLINT, CMP, LIPID, DBIL, PHOS, MG #### [facility] [address] [place] [address] Dr. Brea Causey TESTOSTERONE, FREE,DIRECT, T OTALon 05-28-2022 Free Testosterone(Direct) 5.9 pg/mL Critically low 6.6-18.1 [facility] Comment on above: Result Comment: Perf ormed at: BN Performed By: #### U CLINT, CMP, LIPID, DBIL, PHOS, MG #### [facility] [address] [place] [address] Dr. Brea Causey Testosterone [Mass/Vol] 513 ng/dL Normal 264-916 [facility] Comment on above: Result Comment: Adul t male reference interval is based on a population of healthy nonobese males (BMI <30) between 19 and 39 years old. Steven et.al. JCEM 2017,102;7720-9544. PMID: [id number]. Performed at: CB Performed By: #### U CLINT, CMP, LIPID, DBIL, PHOS, MG #### [facility] [address] [place] [address] Dr. Brea Causey FK506 (TACROLIMUS) WHOLE BLO ODon 05-26-2022 Tacrolimus (FK506), Blood 3.9 ng/mL Normal 2.0-20.0 [facility] Comment on above: Result Comment: Trou gh (immediately following transplant) 15.0 . Trough (steady state, 2 weeks or more after transplant): 3.0 - 8.0 . Performed by LC-MS/MS technology. Performed By: #### B KVIRUS #### [facility] [address] [place] [address] Dr. Brea Causey BK VIRUS PCR QUANTon 023 BKV DNA QUANT PCR PLASMA Negative Normal Negative [facility] Comment on above: Result Comment: No B K DNA detected. . The linear range of the assay is 22 - 100,000,000 IU/mL. Performed By: #### U CLINT, CMP, LIPID, DBIL, PHOS, MG #### [facility] [address] [place] [address] Dr. Brea Causey Log10 BKV DNA Plasma Normal [facility] Comment on above: Performed By: #### U CLINT, CMP, LIPID, DBIL, PHOS, MG #### [facility] [address] [place] [address] Dr. Brea Causey BILIRUBIN CONJUGATED (DIRECT )on 05-23-2022 BILI, CONJUGATED 0.2 mg/dL Normal 0.0-0.2 [facility] Comment on above: Performed By: #### C BC #### [facility] [address] [place] [address] Dr. Brea Causey CBC AUTO DIFFon 05-23-2022 BASO # 0.0 103/ul Normal 0.0-0.1 [facility] Comment on above: Performed By: #### B KVIRUS #### [facility] [address] [place] [address] Dr. Brea Causey Basophils/100 WBC (Bld) 0.6 % Normal 0.2-2.0 [facility] Comment on above: Performed By: #### B KVIRUS #### [facility] [address] [place] [address] Dr. Brea Causey EO # 0.1 103/ul Normal 0.0-0.7 [facility] Comment on above: Performed By: #### B KVIRUS #### [facility] [address] [place] [address] Dr. Brea Causey Eosinophils/100 WBC (Bld) 1.7 % Normal 0.9-7.0 [facility] Comment on above: Performed By: #### B KVIRUS #### [facility] [address] [place] [address] Dr. Brea Causey Erythrocyte distribution width (RBC) [Ratio] 13.4 % Normal 11.0-15.0 [facility] Comment on above: Performed By: #### B KVIRUS #### [facility] [address] [place] [address] Dr. Brea Causey Hematocrit (Bld) [Volume fraction] 38.8 % Critically low 42.0-54.0 [facility] Comment on above: Performed By: #### B KVIRUS #### [facility] [address] [place] [address] Dr. Brea Causey Hemoglobin (Bld) [Mass/Vol] 12.4 g/dL Critically low 14.0-18.0 [facility] Comment on above: Performed By: #### B KVIRUS #### [facility] [address] [place] [address] Dr. Brea Causey IG # 0.07 10e3/ul Critically high 0.00-0.03 [facility] Comment on above: Performed By: #### B KVIRUS #### [facility] [address] [place] [address] Dr. Brea Causey IG % 1.1 % Critically high 0.0-0.5 [facility] Comment on above: Performed By: #### B KVIRUS #### [facility] [address] [place] [address] Dr. Brea Causey LYMPH # 0.9 103/ul Critically low 1.2-3.8 [facility] Comment on above: Performed By: #### B KVIRUS #### [facility] [address] [place] [address] Dr. Brea Causey Lymphocytes/100 WBC (Bld) 14.1 % Critically low 20.5-60.0 [facility] Comment on above: Performed By: #### B KVIRUS #### [facility] [address] [place] [address] Dr. Brea Causey MANUAL DIFF REQ NO Normal [facility] Comment on above: Performed By: #### B KVIRUS #### [facility] [address] [place] [address] Dr. Brea Causey MCH (RBC) [Entitic mass] 29.3 pg Normal 25.9-34.0 [facility] Comment on above: Performed By: #### B KVIRUS #### [facility] [address] [place] [address] Dr. Brea Causey MCHC (RBC) [Mass/Vol] 32.0 g/dL Normal 29.9-35.2 [facility] Comment on above: Performed By: #### B KVIRUS #### [facility] [address] [place] [address] Dr. Brea Causey MCV (RBC) [Entitic vol] 91.7 fL Normal 80.0-94.0 [facility] Comment on above: Performed By: #### B KVIRUS #### [facility] [address] [place] [address] Dr. Brea Causey MONO # 0.7 103/ul Normal 0.3-0.8 [facility] Comment on above: Performed By: #### B KVIRUS #### [facility] [address] [place] [address] Dr. Brea Causey Monocytes/100 WBC (Bld) 10.0 % Normal 1.7-12.0 [facility] Comment on above: Performed By: #### B KVIRUS #### [facility] [address] [place] [address] Dr. Brea Causey NEUT # 4.7 103/ul Normal 1.4-6.5 [facility] Comment on above: Performed By: #### B KVIRUS #### [facility] [address] [place] [address] Dr. Brea Causey Neutrophils/100 WBC (Bld) 72.5 % Normal 43.0-75.0 [facility] Comment on above: Performed By: #### B KVIRUS #### [facility] [address] [address] [address] Brea Causey Platelet mean volume (Bld) [Entitic vol] 9.4 fL Critically low 9.5-13.5 [facility] Comment on above: Performed By: #### B KVIRUS #### [facility] [address] [address] [address] Brea Causey PLT 256 103/ul Normal 150-450 [facility] Comment on above: Performed By: #### B KVIRUS #### [facility] [address] [address] [address] Brea Causey RBC 4.23 106/ul Critically low 4.70-6.10 [facility] Comment on above: Performed By: #### B KVIRUS #### [facility] [address] [place] [address] Dr. Brea Causey WBC 6.5 103/ul Normal 4.0-11.0 [facility] Comment on above: Performed By: #### B KVIRUS #### [facility] [address] [place] [address] Dr. Brea Causey GLYCOHEMOGLOBIN A1Con 2022 ADA RECOMMENDATION SEE BELOW Normal [facility] Comment on above: Result Comment: ADA RECOMMENDED LIMIT 4.0 - 6.0 ADA THERAPEUTIC TARGET < 7.0 ACTION SUGGESTED > 7.0 Performed By: #### U CLINT, CMP, LIPID, DBIL, PHOS, MG #### [facility] [address] [address] [address] Brea Causey Glucose [Mass/Vol] 160 mg/dL Normal [facility] Comment on above: Performed By: #### U CLINT, CMP, LIPID, DBIL, PHOS, MG #### [facility] [address] [address] [address] Brea Causey HbA1c (Bld) [Mass fraction] 7.2 % Critically high 4.5-6.2 [facility] Comment on above: Performed By: #### U CLINT, CMP, LIPID, DBIL, PHOS, MG #### [facility] [address] [address] [address] Brea Causey LIPID PROFILEon 05-23-2022 CHOL-HDL RATIO NORM SEE BELOW Normal [facility] Comment on above: Result Comment: 3.3 - 4.4 LOW RISK 4.4 - 7.1 AVERAGE RISK 7.1 - 11.0 MODERATE RISK >11.0 HIGH RISK Performed By: #### C BC #### [facility] [address] [address] [address] Brea Causey Cholesterol [Mass/Vol] 87 mg/dL Normal <=200 [facility] Comment on above: Performed By: #### C BC #### [facility] [address] [address] [address] Brea Causey Cholesterol in HDL [Mass/Vol] 54 mg/dL Normal 40-60 [facility] Comment on above: Performed By: #### C BC #### [facility] [address] [address] [address] Brea Causey Cholesterol in LDL [Mass/Vol] 24.6 mg/dL Normal [facility] Comment on above: Performed By: #### C BC #### [facility] [address] [address] [address] Brea Causey Cholesterol.total/Cho lesterol in HDL [Mass ratio] 1.6 {ratio} Normal [facility] Comment on above: Performed By: #### C BC #### [facility] [address] [address] [address] Brea Causey HDL NORMAL > or = 60 mg/dl - LO W CARDIOVASCULAR RISK <40 mg/dl - HIGH CARDIOVASCULAR RISK Normal [facility] Comment on above: Performed By: #### C BC #### [facility] [address] [address] [address] Brea Causey LDL CALC NORMAL SEE BELOW Normal [facility] Comment on above: Result Comment: <100 mg/dl OPTIMAL 100 - 129 mg/dl NEAR OR ABOVE OPTIMAL 130 - 159 mg/dl BORDERLINE HIGH 160 - 189 mg/dl HIGH >190 mg/dl VERY HIGH Performed By: #### C BC #### [facility] [address] [address] [address] Brea Causey Triglyceride [Mass/Vol] 42 mg/dL Normal <=150 [facility] Comment on above: Performed By: #### C BC #### [facility] [address] [place] [address] Dr. Brea Causey VLDL CALC 8.4 mg/dL Normal [facility] Comment on above: Performed By: #### C BC #### [facility] [address] [place] [address] Dr. Brea Causey MAGNESIUMon 05-23-2022 Magnesium [Mass/Vol] 1.4 mg/dL Critically low 1.8-2.4 [facility] Comment on above: Performed By: #### C BC #### [facility] [address] [place] [address] Dr. Brea Causey PHOSPHORUSon 05-23-2022 Phosphate [Mass/Vol] 3.6 mg/dL Normal 2.6-4.7 [facility] Comment on above: Performed By: #### C BC #### [facility] [address] [place] [address] Dr. Brea Causey PROF 14(COMP METB)on 023 Albumin [Mass/Vol] 3.9 g/dL Normal 3.4-5.0 [facility] Comment on above: Performed By: #### C BC #### [facility] [address] [place] [address] Dr. Brea Causey Albumin/Globulin [Mass ratio] 1.2 {ratio} Normal [facility] Comment on above: Performed By: #### C BC #### [facility] [address] [place] [address] Dr. Brea Causey ALP [Catalytic activity/Vol] 190 U/L Critically high 46-116 [facility] Comment on above: Performed By: #### C BC #### [facility] [address] [place] [address] Dr. Brea Causey ALT [Catalytic activity/Vol] 26 U/L Normal 16-63 [facility] Comment on above: Performed By: #### C BC #### [facility] [address] [place] [address] Dr. Brea Causey Anion gap [Moles/Vol] 13.1 mmol/L Normal [facility] Comment on above: Performed By: #### C BC #### [facility] [address] [place] [address] Dr. rBea Causey AST [Catalytic activity/Vol] 18 U/L Normal 15-37 [facility] Comment on above: Performed By: #### C BC #### [facility] [address] [place] [address] Dr. Brea Causey Bilirubin [Mass/Vol] 0.4 mg/dL Normal 0.2-1.0 [facility] Comment on above: Performed By: #### C BC #### [facility] [address] [place] [address] Dr. Brea Causey Calcium [Mass/Vol] 7.8 mg/dL Critically low 8.5-10.1 [facility] Comment on above: Performed By: #### C BC #### [facility] [address] [place] [address] Dr. Brea Causey Chloride [Moles/Vol] 95 mmol/L Critically low 98-107 [facility] Comment on above: Performed By: #### C BC #### [facility] [address] [place] [address] Dr. Brea Causey CO2 [Moles/Vol] 28.8 mmol/L Normal 21.0-32.0 [facility] Comment on above: Performed By: #### C BC #### [facility] [address] [place] [address] Dr. Brea Causey Creatinine [Mass/Vol] 1.03 mg/dL Normal 0.70-1.30 [facility] Comment on above: Performed By: #### C BC #### [facility] [address] [place] [address] Dr. Brea Causey EGFR-AF CHINESE >60 Normal >=60 [facility] Comment on above: Performed By: #### C BC #### [facility] [address] [place] [address] Dr. Brea Causey EGFR-NON AF CHINESE >60 Normal >=60 [facility] Comment on above: Performed By: #### C BC #### [facility] [address] [address] [address] Brea Causey Globulin (S) [Mass/Vol] 3.2 g/dL Normal [facility] Comment on above: Performed By: #### C BC #### [facility] [address] [address] [address] Brea Causey Glucose [Mass/Vol] 155 mg/dL Critically high 74-106 [facility] Comment on above: Performed By: #### C BC #### [facility] [address] [address] [address] Brea Causey Potassium [Moles/Vol] 4.9 mmol/L Normal 3.5-5.1 [facility] Comment on above: Performed By: #### C BC #### [facility] [address] [place] [address] Dr. Brea Causey Protein [Mass/Vol] 7.1 g/dL Normal 6.4-8.2 [facility] Comment on above: Performed By: #### C BC #### [facility] [address] [address] [address] Brea Causey Sodium [Moles/Vol] 132 mmol/L Critically low 136-145 [facility] Comment on above: Performed By: #### C BC #### [facility] [address] [place] [address] Dr. Brea Causey Urea nitrogen [Mass/Vol] 8.0 mg/dL Normal 7.0-18.0 [facility] Comment on above: Performed By: #### C BC #### [facility] [address] [address] [address] Brea Causey Urea nitrogen/Creatinine [Mass ratio] 7.8 mg/mg Normal [facility] Comment on above: Performed By: #### C BC #### [facility] [address] [address] [address] Brea Causey URIC ACID SERUMon 05-23-2022 Urate [Mass/Vol] 5.6 mg/dL Normal 3.5-7.2 [facility] Comment on above: Performed By: #### C BC #### [facility] [address] [address] [address] Brea Causey TESTOSTERONE, FREE,DIRECT, T OTALon 05-03-2022 Free Testosterone(Direct) 7.4 pg/mL Normal 6.6-18.1 [facility] Comment on above: Result Comment: Perf ormed at: BN Performed By: #### U CLINT, CMP, LIPID, DBIL, PHOS, MG #### [facility] [address] [address] [address] Brea Causey Testosterone [Mass/Vol] 494 ng/dL Normal 264-916 [facility] Comment on above: Result Comment: Adul t male reference interval is based on a population of healthy nonobese males (BMI <30) between 19 and 39 years old. daniel Harris.al. JCEM 2017,102;[id number]. PMID: [id number]. Performed at: CB Performed By: #### U CLINT, CMP, LIPID, DBIL, PHOS, MG #### [facility] [address] [address] [address] Brea Causey FK506 (TACROLIMUS) WHOLE BLO ODon 05-02-2022 Tacrolimus (FK506), Blood 4.3 ng/mL Normal 2.0-20.0 [facility] Comment on above: Result Comment: Trou gh (immediately following transplant) 15.0 . Trough (steady state, 2 weeks or more after transplant): 3.0 - 8.0 . Performed by LC-MS/MS technology. Performed By: #### C BC #### [facility] [address] [place], [place] [id number] Dr. Brea Causey BILIRUBIN CONJUGATED (DIRECT )on 04-30-2022 BILI, CONJUGATED 0.1 mg/dL Normal 0.0-0.[address] [facility] Comment on above: Performed By: #### U CLINT, CMP, LIPID, DBIL, PHOS, MG #### [facility] [address] [id number] [address] Brea Causey CBC AUTO DIFFon 04-30-2022 BASO # 0.0 103/ul Normal 0.0-0.1 [facility] Comment on above: Performed By: #### U CLINT, CMP, LIPID, DBIL, PHOS, MG #### [facility] [address] [place] [address] Dr. Brea Causey Basophils/100 WBC (Bld) 0.5 % Normal 0.2-2.0 [facility] Comment on above: Performed By: #### U CLINT, CMP, LIPID, DBIL, PHOS, MG #### [facility] [address] [place] [address] Dr. Brea Causey EO # 0.1 103/ul Normal 0.0-0.7 [facility] Comment on above: Performed By: #### U CLINT, CMP, LIPID, DBIL, PHOS, MG #### [facility] [address] [place] [address] Dr. Brea Causey Eosinophils/100 WBC (Bld) 2.1 % Normal 0.9-7.0 [facility] Comment on above: Performed By: #### U CLINT, CMP, LIPID, DBIL, PHOS, MG #### [facility] [address] [place] [address] Dr. Brea Causey Erythrocyte distribution width (RBC) [Ratio] 13.2 % Normal 11.0-15.0 [facility] Comment on above: Performed By: #### U CLINT, CMP, LIPID, DBIL, PHOS, MG #### [facility] [address] [place] [address] Dr. Brea Causey Hematocrit (Bld) [Volume fraction] 37.0 % Critically low 42.0-54.0 [facility] Comment on above: Performed By: #### U CLINT, CMP, LIPID, DBIL, PHOS, MG #### [facility] [address] [place] [address] Dr. Brea Causey Hemoglobin (Bld) [Mass/Vol] 12.4 g/dL Critically low 14.0-18.0 [facility] Comment on above: Performed By: #### U CLINT, CMP, LIPID, DBIL, PHOS, MG #### [facility] [address] [address] [address] Brea Causey IG # 0.05 10e3/ul Critically high 0.00-0.03 [facility] Comment on above: Performed By: #### U CLINT, CMP, LIPID, DBIL, PHOS, MG #### [facility] [address] [place] [address] Dr. Brea Causey IG % 0.9 % Critically high 0.0-0.5 [facility] Comment on above: Performed By: #### U CLINT, CMP, LIPID, DBIL, PHOS, MG #### [facility] [address] [place] [address] Dr. Brea Causey LYMPH # 1.0 103/ul Critically low 1.2-3.8 [facility] Comment on above: Performed By: #### U CLINT, CMP, LIPID, DBIL, PHOS, MG #### [facility] [address] [place] [address] Dr. Brea Causey Lymphocytes/100 WBC (Bld) 16.4 % Critically low 20.5-60.0 [facility] Comment on above: Performed By: #### U CLINT, CMP, LIPID, DBIL, PHOS, MG #### [facility] [address] [place] [address] Dr. Brea Causey MANUAL DIFF REQ NO Normal [facility] Comment on above: Performed By: #### U CLINT, CMP, LIPID, DBIL, PHOS, MG #### [facility] [address] [place] [address] Dr. Brea Causey MCH (RBC) [Entitic mass] 29.0 pg Normal 25.9-34.0 [facility] Comment on above: Performed By: #### U CLINT, CMP, LIPID, DBIL, PHOS, MG #### [facility] [address] [place] [address] Dr. Brea Causey MCHC (RBC) [Mass/Vol] 33.5 g/dL Normal 29.9-35.2 [facility] Comment on above: Performed By: #### U CLINT, CMP, LIPID, DBIL, PHOS, MG #### [facility] [address] [place] [address] Dr. Brea Causey MCV (RBC) [Entitic vol] 86.7 fL Normal 80.0-94.0 [facility] Comment on above: Performed By: #### U CLINT, CMP, LIPID, DBIL, PHOS, MG #### [facility] [address] [place] [address] Dr. Brea Causey MONO # 0.7 103/ul Normal 0.3-0.8 [facility] Comment on above: Performed By: #### U CLINT, CMP, LIPID, DBIL, PHOS, MG #### [facility] [address] [place] [address] Dr. Brea Causey Monocytes/100 WBC (Bld) 11.6 % Normal 1.7-12.0 [facility] Comment on above: Performed By: #### U CLINT, CMP, LIPID, DBIL, PHOS, MG #### [facility] [address] [place] [address] Dr. Brea Causey NEUT # 4.0 103/ul Normal 1.4-6.5 [facility] Comment on above: Performed By: #### U CLINT, CMP, LIPID, DBIL, PHOS, MG #### [facility] [address] [place] [address] Dr. Brea Causey Neutrophils/100 WBC (Bld) 68.5 % Normal 43.0-75.0 [facility] Comment on above: Performed By: #### U CLINT, CMP, LIPID, DBIL, PHOS, MG #### [facility] [address] [place] [address] Dr. Brea Causey Platelet mean volume (Bld) [Entitic vol] 9.2 fL Critically low 9.5-13.5 [facility] Comment on above: Performed By: #### U CLINT, CMP, LIPID, DBIL, PHOS, MG #### [facility] [address] [place] [address] Dr. Brea Causey PLT 231 103/ul Normal 150-450 [facility] Comment on above: Performed By: #### U CLINT, CMP, LIPID, DBIL, PHOS, MG #### [facility] [address] [address] [address] Brea Causey RBC 4.27 106/ul Critically low 4.70-6.10 [facility] Comment on above: Performed By: #### U CLINT, CMP, LIPID, DBIL, PHOS, MG #### [facility] [address] [address] [address] Brea Causey WBC 5.9 103/ul Normal 4.0-11.0 [facility] Comment on above: Performed By: #### U CLINT, CMP, LIPID, DBIL, PHOS, MG #### [facility] [address] [address] [address] Brea Causey LIPID PROFILEon 04-30-2022 CHOL-HDL RATIO NORM SEE BELOW Normal [facility] Comment on above: Result Comment: 3.3 - 4.4 LOW RISK 4.4 - 7.1 AVERAGE RISK 7.1 - 11.0 MODERATE RISK >11.0 HIGH RISK Performed By: #### U CLINT, CMP, LIPID, DBIL, PHOS, MG #### [facility] [address] [address] [address] Brea Causey Cholesterol [Mass/Vol] 78 mg/dL Normal <=200 [facility] Comment on above: Performed By: #### U CLINT, CMP, LIPID, DBIL, PHOS, MG #### [facility] [address] [address] [address] Brea Causey Cholesterol in HDL [Mass/Vol] 41 mg/dL Normal 40-60 [facility] Comment on above: Performed By: #### U CLINT, CMP, LIPID, DBIL, PHOS, MG #### [facility] [address] [address] [address] Brea Causey Cholesterol in LDL [Mass/Vol] 17.8 mg/dL Normal [facility] Comment on above: Performed By: #### U CLINT, CMP, LIPID, DBIL, PHOS, MG #### [facility] [address] [address] [address] Brea Causey Cholesterol.total/Cho lesterol in HDL [Mass ratio] 1.9 {ratio} Normal [facility] Comment on above: Performed By: #### U CLINT, CMP, LIPID, DBIL, PHOS, MG #### [facility] [address] [address] [address] Brea Causey HDL NORMAL > or = 60 mg/dl - LO W CARDIOVASCULAR RISK <40 mg/dl - HIGH CARDIOVASCULAR RISK Normal [facility] Comment on above: Performed By: #### U CLINT, CMP, LIPID, DBIL, PHOS, MG #### [facility] [address] [address] [address] Brea Causey LDL CALC NORMAL SEE BELOW Normal [facility] Comment on above: Result Comment: <100 mg/dl OPTIMAL 100 - 129 mg/dl NEAR OR ABOVE OPTIMAL 130 - 159 mg/dl BORDERLINE HIGH 160 - 189 mg/dl HIGH >190 mg/dl VERY HIGH Performed By: #### U CLINT, CMP, LIPID, DBIL, PHOS, MG #### [facility] [address] [address] [address] Brea Causey Triglyceride [Mass/Vol] 96 mg/dL Normal <=150 [facility] Comment on above: Performed By: #### U CLINT, CMP, LIPID, DBIL, PHOS, MG #### [facility] [address] [address] [address] Brea Causey VLDL CALC 19.2 mg/dL Normal [facility] Comment on above: Performed By: #### U CLINT, CMP, LIPID, DBIL, PHOS, MG #### [facility] [address] [address] [address] Brea Causey MAGNESIUMon 04-30-2022 Magnesium [Mass/Vol] 1.7 mg/dL Critically low 1.8-2.4 [facility] Comment on above: Performed By: #### U CLINT, CMP, LIPID, DBIL, PHOS, MG #### [facility] [address] [address] [address] Brea Causey PHOSPHORUSon 04-30-2022 Phosphate [Mass/Vol] 3.6 mg/dL Normal 2.6-4.7 [facility] Comment on above: Performed By: #### U CLINT, CMP, LIPID, DBIL, PHOS, MG #### [facility] [address] [address] [address] Brea Causey PROF 14(COMP METB)on 022 Albumin [Mass/Vol] 4.0 g/dL Normal 3.4-5.0 [facility] Comment on above: Performed By: #### U CLINT, CMP, LIPID, DBIL, PHOS, MG #### [facility] [address] [place] [address] Dr. Brea Causey Albumin/Globulin [Mass ratio] 1.3 {ratio} Normal [facility] Comment on above: Performed By: #### U CLINT, CMP, LIPID, DBIL, PHOS, MG #### [facility] [address] [place] [address] Dr. Brea Causey ALP [Catalytic activity/Vol] 196 U/L Critically high 46-116 [facility] Comment on above: Performed By: #### U CLINT, CMP, LIPID, DBIL, PHOS, MG #### [facility] [address] [place] [address] Dr. Brea Causey ALT [Catalytic activity/Vol] 21 U/L Normal 16-63 [facility] Comment on above: Performed By: #### U CLINT, CMP, LIPID, DBIL, PHOS, MG #### [facility] [address] [address] [address] Brea Causey Anion gap [Moles/Vol] 10.5 mmol/L Normal [facility] Comment on above: Performed By: #### U CLINT, CMP, LIPID, DBIL, PHOS, MG #### [facility] [address] [address] [address] Brea Causey AST [Catalytic activity/Vol] 16 U/L Normal 15-37 [facility] Comment on above: Performed By: #### U CLINT, CMP, LIPID, DBIL, PHOS, MG #### [facility] [address] [place] [address] Dr. Brea Causey Bilirubin [Mass/Vol] 0.3 mg/dL Normal 0.2-1.0 [facility] Comment on above: Performed By: #### U CLINT, CMP, LIPID, DBIL, PHOS, MG #### [facility] [address] [place] [address] Dr. Brea Causey Calcium [Mass/Vol] 8.6 mg/dL Normal 8.5-10.1 [facility] Comment on above: Performed By: #### U CLINT, CMP, LIPID, DBIL, PHOS, MG #### [facility] [address] [place] [address] Dr. Brea Causey Chloride [Moles/Vol] 95 mmol/L Critically low 98-107 [facility] Comment on above: Performed By: #### U CLINT, CMP, LIPID, DBIL, PHOS, MG #### [facility] [address] [place] [address] Dr. Brea Causey CO2 [Moles/Vol] 30.9 mmol/L Normal 21.0-32.0 [facility] Comment on above: Performed By: #### U CLINT, CMP, LIPID, DBIL, PHOS, MG #### [facility] [address] [place] [address] Dr. Brea Causey Creatinine [Mass/Vol] 1.00 mg/dL Normal 0.70-1.30 [facility] Comment on above: Performed By: #### U CLINT, CMP, LIPID, DBIL, PHOS, MG #### [facility] [address] [place] [address] Dr. Brea Causey EGFR-AF CHINESE >60 Normal >=[address] [facility] Comment on above: Performed By: #### U CLINT, CMP, LIPID, DBIL, PHOS, MG #### [facility] [address] [place] [address] Dr. Brea Causey EGFR-NON AF CHINESE >60 Normal >=60 [facility] Comment on above: Performed By: #### U CLINT, CMP, LIPID, DBIL, PHOS, MG #### [facility] [address] [place] [address] Dr. Brea Causey Globulin (S) [Mass/Vol] 3.2 g/dL Normal [facility] Comment on above: Performed By: #### U CLINT, CMP, LIPID, DBIL, PHOS, MG #### [facility] [address] [place] [address] Dr. Brea Causey Glucose [Mass/Vol] 160 mg/dL Critically high 74-106 [facility] Comment on above: Performed By: #### U CLINT, CMP, LIPID, DBIL, PHOS, MG #### [facility] [address] [place] [address] Dr. Brea Causey Potassium [Moles/Vol] 5.4 mmol/L Critically high 3.5-5.1 [facility] Comment on above: Performed By: #### U CLINT, CMP, LIPID, DBIL, PHOS, MG #### [facility] [address] [place] [address] Dr. Brea Causey Protein [Mass/Vol] 7.2 g/dL Normal 6.4-8.2 [facility] Comment on above: Performed By: #### U CLINT, CMP, LIPID, DBIL, PHOS, MG #### [facility] [address] [place] [address] Dr. Brea Causey Sodium [Moles/Vol] 131 mmol/L Critically low 136-145 [facility] Comment on above: Performed By: #### U CLINT, CMP, LIPID, DBIL, PHOS, MG #### [facility] [address] [place] [address] Dr. Brea Causey Urea nitrogen [Mass/Vol] 11.0 mg/dL Normal 7.0-18.0 [facility] Comment on above: Performed By: #### U CLINT, CMP, LIPID, DBIL, PHOS, MG #### [facility] [address] [place] [address] Dr. Brea Causey Urea nitrogen/Creatinine [Mass ratio] 11.0 mg/mg Normal [facility] Comment on above: Performed By: #### U CLINT, CMP, LIPID, DBIL, PHOS, MG #### [facility] [address] [place] [address] Dr. Brea Causey URIC ACID SERUMon 04-30-2022 Urate [Mass/Vol] 5.9 mg/dL Normal 3.5-7.[address] [facility] Comment on above: Performed By: #### U CLINT, CMP, LIPID, DBIL, PHOS, MG #### [facility] [address] [address] [address] Brea Causey FK506 (TACROLIMUS) WHOLE BLO ODon 04-06-2022 Tacrolimus (FK506), Blood 3.0 ng/mL Normal 2.0-20.0 [facility] Comment on above: Result Comment: Trou gh (immediately following transplant) 15.0 . Trough (steady state, 2 weeks or more after transplant): 3.0 - 8.0 . Performed by LC-MS/MS technology. Performed By: #### U CLINT, CMP, LIPID, DBIL, PHOS, MG #### [facility] [address] [address] [address] Brea Causey BILIRUBIN CONJUGATED (DIRECT )on 04-03-2022 BILI, CONJUGATED 0.1 mg/dL Normal 0.0-0.[address] [facility] Comment on above: Performed By: #### U CLINT, CMP, LIPID, DBIL, PHOS, MG #### [facility] [address] [address] [address] Brea Causey CBC AUTO DIFFon 04-03-2022 BASO # 0.0 103/ul Normal 0.0-0.1 [facility] Comment on above: Performed By: #### U CLINT, CMP, LIPID, DBIL, PHOS, MG #### [facility] [address] [address] [address] Brea Causey Basophils/100 WBC (Bld) 0.5 % Normal 0.2-2.0 [facility] Comment on above: Performed By: #### U CLINT, CMP, LIPID, DBIL, PHOS, MG #### [facility] [address] [address] [address] Brea Causey EO # 0.1 103/ul Normal 0.0-0.7 [facility] Comment on above: Performed By: #### U CLINT, CMP, LIPID, DBIL, PHOS, MG #### [facility] [address] [address] [address] Brea Causey Eosinophils/100 WBC (Bld) 2.5 % Normal 0.9-7.0 [facility] Comment on above: Performed By: #### U CLINT, CMP, LIPID, DBIL, PHOS, MG #### [facility] [address] [place] [address] Dr. Brea Causey Erythrocyte distribution width (RBC) [Ratio] 13.3 % Normal 11.0-15.0 [facility] Comment on above: Performed By: #### U CLINT, CMP, LIPID, DBIL, PHOS, MG #### [facility] [address] [place] [address] Dr. Brea Causey Hematocrit (Bld) [Volume fraction] 36.4 % Critically low 42.0-54.0 [facility] Comment on above: Performed By: #### U CLINT, CMP, LIPID, DBIL, PHOS, MG #### [facility] [address] [place] [address] Dr. Brea Causey Hemoglobin (Bld) [Mass/Vol] 12.3 g/dL Critically low 14.0-18.0 [facility] Comment on above: Performed By: #### U CLINT, CMP, LIPID, DBIL, PHOS, MG #### [facility] [address] [place] [address] Dr. Brea Causey IG # 0.03 10e3/ul Normal 0.00-0.03 [facility] Comment on above: Performed By: #### U CLINT, CMP, LIPID, DBIL, PHOS, MG #### [facility] [address] [place] [address] Dr. Brea Causey IG % 0.5 % Normal 0.0-0.5 [facility] Comment on above: Performed By: #### U CLINT, CMP, LIPID, DBIL, PHOS, MG #### [facility] [address] [place] [address] Dr. Brea Causey LYMPH # 0.9 103/ul Critically low 1.2-3.8 [facility] Comment on above: Performed By: #### U CLINT, CMP, LIPID, DBIL, PHOS, MG #### [facility] [address] [place] [address] Dr. Brea Causey Lymphocytes/100 WBC (Bld) 16.9 % Critically low 20.5-60.0 [facility] Comment on above: Performed By: #### U CLINT, CMP, LIPID, DBIL, PHOS, MG #### [facility] [address] [place] [address] Dr. Brea Causey MANUAL DIFF REQ NO Normal [facility] Comment on above: Performed By: #### U CLINT, CMP, LIPID, DBIL, PHOS, MG #### [facility] [address] [place] [address] Dr. Brea Causey MCH (RBC) [Entitic mass] 29.3 pg Normal 25.9-34.0 [facility] Comment on above: Performed By: #### U CLINT, CMP, LIPID, DBIL, PHOS, MG #### [facility] [address] [place] [address] Dr. Brea Causey MCHC (RBC) [Mass/Vol] 33.8 g/dL Normal 29.9-35.2 [facility] Comment on above: Performed By: #### U CLINT, CMP, LIPID, DBIL, PHOS, MG #### [facility] [address] [place] [address] Dr. Brea Causey MCV (RBC) [Entitic vol] 86.7 fL Normal 80.0-94.0 [facility] Comment on above: Performed By: #### U CLINT, CMP, LIPID, DBIL, PHOS, MG #### [facility] [address] [place] [address] Dr. Brea Causey MONO # 0.6 103/ul Normal 0.3-0.8 [facility] Comment on above: Performed By: #### U CLINT, CMP, LIPID, DBIL, PHOS, MG #### [facility] [address] [place] [address] Dr. Brea Causey Monocytes/100 WBC (Bld) 10.1 % Normal 1.7-12.0 [facility] Comment on above: Performed By: #### U CLINT, CMP, LIPID, DBIL, PHOS, MG #### [facility] [address] [place] [address] Dr. Brea Causey NEUT # 3.9 103/ul Normal 1.4-6.5 [facility] Comment on above: Performed By: #### U CLINT, CMP, LIPID, DBIL, PHOS, MG #### [facility] [address] [place] [address] Dr. Brea Causey Neutrophils/100 WBC (Bld) 69.5 % Normal 43.0-75.0 [facility] Comment on above: Performed By: #### U CLINT, CMP, LIPID, DBIL, PHOS, MG #### [facility] [address] [place] [address] Dr. Brea Causey Platelet mean volume (Bld) [Entitic vol] 9.2 fL Critically low 9.5-13.5 [facility] Comment on above: Performed By: #### U CLINT, CMP, LIPID, DBIL, PHOS, MG #### [facility] [address] [place] [address] Dr. Brea Causey PLT 228 103/ul Normal 150-450 [facility] Comment on above: Performed By: #### U CLINT, CMP, LIPID, DBIL, PHOS, MG #### [facility] [address] [place] [address] Dr. Brea Causey RBC 4.20 106/ul Critically low 4.70-6.10 [facility] Comment on above: Performed By: #### U CLNIT, CMP, LIPID, DBIL, PHOS, MG #### [facility] [address] [place] [address] Dr. Brea Causey WBC 5.6 103/ul Normal 4.0-11.0 [facility] Comment on above: Performed By: #### U CLINT, CMP, LIPID, DBIL, PHOS, MG #### [facility] [address] [place], [place] [id number] Dr. Brea Causey LIPID PROFILEon 04-03-2022 CHOL-HDL RATIO NORM SEE BELOW Normal [facility] Comment on above: Result Comment: 3.3 - 4.4 LOW RISK 4.4 - 7.1 AVERAGE RISK 7.1 - 11.0 MODERATE RISK >11.0 HIGH RISK Performed By: #### U CLINT, CMP, LIPID, DBIL, PHOS, MG #### [facility] [address] [address] [address] Brea Causey Cholesterol [Mass/Vol] 84 mg/dL Normal <=200 [facility] Comment on above: Performed By: #### U CLINT, CMP, LIPID, DBIL, PHOS, MG #### [facility] [address] [address] [address] Brea Causey Cholesterol in HDL [Mass/Vol] 45 mg/dL Normal 40-60 [facility] Comment on above: Performed By: #### U CLINT, CMP, LIPID, DBIL, PHOS, MG #### [facility] [address] [address] [address] Brea Causey Cholesterol in LDL [Mass/Vol] 22.8 mg/dL Normal [facility] Comment on above: Performed By: #### U CLINT, CMP, LIPID, DBIL, PHOS, MG #### [facility] [address] [address] [address] Brea Causey Cholesterol.total/Cho lesterol in HDL [Mass ratio] 1.9 {ratio} Normal [facility] Comment on above: Performed By: #### U CLINT, CMP, LIPID, DBIL, PHOS, MG #### [facility] [address] [address] [address] Brea Causey HDL NORMAL > or = 60 mg/dl - LO W CARDIOVASCULAR RISK <40 mg/dl - HIGH CARDIOVASCULAR RISK Normal [facility] Comment on above: Performed By: #### U CLINT, CMP, LIPID, DBIL, PHOS, MG #### [facility] [address] [address] [address] Brea Causey LDL CALC NORMAL SEE BELOW Normal [facility] Comment on above: Result Comment: <100 mg/dl OPTIMAL 100 - 129 mg/dl NEAR OR ABOVE OPTIMAL 130 - 159 mg/dl BORDERLINE HIGH 160 - 189 mg/dl HIGH >190 mg/dl VERY HIGH Performed By: #### U CLINT, CMP, LIPID, DBIL, PHOS, MG #### [facility] [address] [address] [address] Brea Causey Triglyceride [Mass/Vol] 81 mg/dL Normal <=150 [facility] Comment on above: Performed By: #### U CLINT, CMP, LIPID, DBIL, PHOS, MG #### [facility] [address] [address] [address] Brea Causey VLDL CALC 16.2 mg/dL Normal [facility] Comment on above: Performed By: #### U CLINT, CMP, LIPID, DBIL, PHOS, MG #### [facility] [address] [place] [address] Dr. Brea Causey MAGNESIUMon 04-03-2022 Magnesium [Mass/Vol] 1.6 mg/dL Critically low 1.8-2.4 [facility] Comment on above: Performed By: #### U CLINT, CMP, LIPID, DBIL, PHOS, MG #### [facility] [address] [address] [address] Brea Causey PHOSPHORUSon 04-03-2022 Phosphate [Mass/Vol] 3.9 mg/dL Normal 2.6-4.7 [facility] Comment on above: Performed By: #### U CLINT, CMP, LIPID, DBIL, PHOS, MG #### [facility] [address] [place] [address] Dr. Brea Causey PROF 14(COMP METB)on 022 Albumin [Mass/Vol] 4.0 g/dL Normal 3.4-5.0 [facility] Comment on above: Performed By: #### U CLINT, CMP, LIPID, DBIL, PHOS, MG #### [facility] [address] [place] [address] Dr. Brea Causey Albumin/Globulin [Mass ratio] 1.2 {ratio} Normal [facility] Comment on above: Performed By: #### U CLINT, CMP, LIPID, DBIL, PHOS, MG #### [facility] [address] [address] [address] Brea Causey ALP [Catalytic activity/Vol] 196 U/L Critically high 46-116 [facility] Comment on above: Performed By: #### U CLINT, CMP, LIPID, DBIL, PHOS, MG #### [facility] [address] [place] [address] Dr. Brea Causey ALT [Catalytic activity/Vol] 19 U/L Normal 16-63 [facility] Comment on above: Performed By: #### U CLINT, CMP, LIPID, DBIL, PHOS, MG #### [facility] [address] [place] [address] Dr. Brea Causey Anion gap [Moles/Vol] 10.2 mmol/L Normal [facility] Comment on above: Performed By: #### U CLINT, CMP, LIPID, DBIL, PHOS, MG #### [facility] [address] [place] [address] Dr. Brea Causey AST [Catalytic activity/Vol] 15 U/L Normal 15-37 [facility] Comment on above: Performed By: #### U CLINT, CMP, LIPID, DBIL, PHOS, MG #### [facility] [address] [place] [address] Dr. Brea Causey Bilirubin [Mass/Vol] 0.3 mg/dL Normal 0.2-1.0 [facility] Comment on above: Performed By: #### U CLINT, CMP, LIPID, DBIL, PHOS, MG #### [facility] [address] [place] [address] Dr. Brea Causey Calcium [Mass/Vol] 8.2 mg/dL Critically low 8.5-10.1 [facility] Comment on above: Performed By: #### U CLINT, CMP, LIPID, DBIL, PHOS, MG #### [facility] [address] [place] [address] Dr. Brea Causey Chloride [Moles/Vol] 97 mmol/L Critically low 98-107 [facility] Comment on above: Performed By: #### U CLINT, CMP, LIPID, DBIL, PHOS, MG #### [facility] [address] [address] [address] Brea Causey CO2 [Moles/Vol] 28.2 mmol/L Normal 21.0-32.0 [facility] Comment on above: Performed By: #### U CLINT, CMP, LIPID, DBIL, PHOS, MG #### [facility] [address] [address] [address] Brea Causey Creatinine [Mass/Vol] 1.00 mg/dL Normal 0.70-1.30 [facility] Comment on above: Performed By: #### U CLINT, CMP, LIPID, DBIL, PHOS, MG #### [facility] [address] [place] [address] Dr. Brea Causey EGFR-AF CHINESE >60 Normal >=60 [facility] Comment on above: Performed By: #### U CLINT, CMP, LIPID, DBIL, PHOS, MG #### [facility] [address] [place] [address] Dr. Brea Causey EGFR-NON AF CHINESE >60 Normal >=60 [facility] Comment on above: Performed By: #### U CLINT, CMP, LIPID, DBIL, PHOS, MG #### [facility] [address] [address] [address] Brea Causey Globulin (S) [Mass/Vol] 3.3 g/dL Normal [facility] Comment on above: Performed By: #### U CLINT, CMP, LIPID, DBIL, PHOS, MG #### [facility] [address] [address] [address] Brea Causey Glucose [Mass/Vol] 164 mg/dL Critically high 74-106 [facility] Comment on above: Performed By: #### U CLINT, CMP, LIPID, DBIL, PHOS, MG #### [facility] [address] [place] [address] Dr. Brea Causey Potassium [Moles/Vol] 4.4 mmol/L Normal 3.5-5.1 [facility] Comment on above: Performed By: #### U CLINT, CMP, LIPID, DBIL, PHOS, MG #### [facility] [address] [address] [address] Brea Causey Protein [Mass/Vol] 7.3 g/dL Normal 6.4-8.2 [facility] Comment on above: Performed By: #### U CLINT, CMP, LIPID, DBIL, PHOS, MG #### [facility] [address] [address] [address] Brea Causey Sodium [Moles/Vol] 131 mmol/L Critically low 136-145 [facility] Comment on above: Performed By: #### U CLINT, CMP, LIPID, DBIL, PHOS, MG #### [facility] [address] [place] [address] Dr. Brea Causey Urea nitrogen [Mass/Vol] 13.0 mg/dL Normal 7.0-18.0 [facility] Comment on above: Performed By: #### U CLINT, CMP, LIPID, DBIL, PHOS, MG #### [facility] [address] [address] [address] Brea Causey Urea nitrogen/Creatinine [Mass ratio] 13.0 mg/mg Normal [facility] Comment on above: Performed By: #### U CLINT, CMP, LIPID, DBIL, PHOS, MG #### [facility] [address] [place] [address] Dr. Brea Causey URIC ACID SERUMon 04-03-2022 Urate [Mass/Vol] 6.1 mg/dL Normal 3.5-7.2 [facility] Comment on above: Performed By: #### U CLINT, CMP, LIPID, DBIL, PHOS, MG #### [facility] [address] [address] [address] Brea Causey TESTOSTERONE, FREE,DIRECT, T OTALon 03-13-2022 Free Testosterone(Direct) 6.9 pg/mL Normal 6.6-18.1 [facility] Comment on above: Result Comment: Perf ormed at: BN Performed By: #### T ESTFRD #### [facility] [address] [place] [address] Dr. Brea Causey Testosterone [Mass/Vol] 428 ng/dL Normal 264-916 [facility] Comment on above: Result Comment: Adul t male reference interval is based on a population of healthy nonobese males (BMI <30) between 19 and 39 years old. daniel Harris.al. JCEM 2017,102;[id number]. PMID: [id number]. Performed at: CB Performed By: #### T ESTFRD #### [facility] [address] [place] [address] Dr. Brea Causey BK VIRUS PCR QUANTon 022 BKV DNA QUANT PCR PLASMA Negative Normal Negative [facility] Comment on above: Result Comment: No B K DNA detected. . The linear range of the assay is 22 - 100,000,000 IU/mL. Performed By: #### B KVIRUS #### [facility] [address] [place] [address] Dr. Brea Causey Log10 BKV DNA Plasma Normal [facility] Comment on above: Performed By: #### B KVIRUS #### [facility] [address] [place] [address] Dr. Brea Causey FK506 (TACROLIMUS) WHOLE BLO ODon 03-11-2022 Tacrolimus (FK506), Blood 4.7 ng/mL Normal 2.0-20.0 [facility] Comment on above: Result Comment: Trou gh (immediately following transplant) 15.0 . Trough (steady state, 2 weeks or more after transplant): 3.0 - 8.0 . Performed by LC-MS/MS technology. Performed By: #### C BC #### [facility] [address] [place] [address] Dr. Brea Causey BILIRUBIN CONJUGATED (DIRECT )on 03-08-2022 BILI, CONJUGATED 0.1 mg/dL Normal 0.0-0.2 [facility] Comment on above: Performed By: #### U CLINT, CMP, LIPID, DBIL, PHOS, MG #### [facility] [address] [place] [address] Dr. Brea Causey CBC AUTO DIFFon 03-08-2022 BASO # 0.0 103/ul Normal 0.0-0.1 [facility] Comment on above: Performed By: #### U CLINT, CMP, LIPID, DBIL, PHOS, MG #### [facility] [address] [place] [address] Dr. Brea Causey Basophils/100 WBC (Bld) 0.7 % Normal 0.2-2.0 [facility] Comment on above: Performed By: #### U CLINT, CMP, LIPID, DBIL, PHOS, MG #### [facility] [address] [place] [address] Dr. Brea Causey EO # 0.2 103/ul Normal 0.0-0.7 [facility] Comment on above: Performed By: #### U CLINT, CMP, LIPID, DBIL, PHOS, MG #### [facility] [address] [place] [address] Dr. Brea Causey Eosinophils/100 WBC (Bld) 3.1 % Normal 0.9-7.0 [facility] Comment on above: Performed By: #### U CLINT, CMP, LIPID, DBIL, PHOS, MG #### [facility] [address] [place] [address] Dr. Brea Causey Erythrocyte distribution width (RBC) [Ratio] 13.3 % Normal 11.0-15.0 [facility] Comment on above: Performed By: #### U CLINT, CMP, LIPID, DBIL, PHOS, MG #### [facility] [address] [place] [address] Dr. Brea Causey Hematocrit (Bld) [Volume fraction] 35.7 % Critically low 42.0-54.0 [facility] Comment on above: Performed By: #### U CLINT, CMP, LIPID, DBIL, PHOS, MG #### [facility] [address] [place] [address] Dr. Brea Causey Hemoglobin (Bld) [Mass/Vol] 12.0 g/dL Critically low 14.0-18.0 [facility] Comment on above: Performed By: #### U CLINT, CMP, LIPID, DBIL, PHOS, MG #### [facility] [address] [address] [address] Brea Causey IG # 0.06 10e3/ul Critically high 0.00-0.03 [facility] Comment on above: Performed By: #### U CLINT, CMP, LIPID, DBIL, PHOS, MG #### [facility] [address] [place] [address] Dr. Brea Causey IG % 1.0 % Critically high 0.0-0.5 [facility] Comment on above: Performed By: #### U CLINT, CMP, LIPID, DBIL, PHOS, MG #### [facility] [address] [place] [address] Dr. Brea Causey LYMPH # 0.8 103/ul Critically low 1.2-3.8 [facility] Comment on above: Performed By: #### U CLINT, CMP, LIPID, DBIL, PHOS, MG #### [facility] [address] [place] [address] Dr. Brea Causey Lymphocytes/100 WBC (Bld) 12.9 % Critically low 20.5-60.0 [facility] Comment on above: Performed By: #### U CLINT, CMP, LIPID, DBIL, PHOS, MG #### [facility] [address] [place] [address] Dr. Brea Causey MANUAL DIFF REQ NO Normal [facility] Comment on above: Performed By: #### U CLINT, CMP, LIPID, DBIL, PHOS, MG #### [facility] [address] [place] [address] Dr. Brea Causey MCH (RBC) [Entitic mass] 29.5 pg Normal 25.9-34.0 [facility] Comment on above: Performed By: #### U CLINT, CMP, LIPID, DBIL, PHOS, MG #### [facility] [address] [place] [address] Dr. Brea Causey MCHC (RBC) [Mass/Vol] 33.6 g/dL Normal 29.9-35.2 [facility] Comment on above: Performed By: #### U CLINT, CMP, LIPID, DBIL, PHOS, MG #### [facility] [address] [place] [address] Dr. Brea Causey MCV (RBC) [Entitic vol] 87.7 fL Normal 80.0-94.0 [facility] Comment on above: Performed By: #### U CLINT, CMP, LIPID, DBIL, PHOS, MG #### [facility] [address] [place] [address] Dr. Brea Causey MONO # 0.6 103/ul Normal 0.3-0.8 [facility] Comment on above: Performed By: #### U CLINT, CMP, LIPID, DBIL, PHOS, MG #### [facility] [address] [place] [address] Dr. Brea Causey Monocytes/100 WBC (Bld) 9.8 % Normal 1.7-12.0 [facility] Comment on above: Performed By: #### U CLINT, CMP, LIPID, DBIL, PHOS, MG #### [facility] [address] [place] [address] Dr. Brea Causey NEUT # 4.4 103/ul Normal 1.4-6.5 [facility] Comment on above: Performed By: #### U CLINT, CMP, LIPID, DBIL, PHOS, MG #### [facility] [address] [place] [address] Dr. Brea Causey Neutrophils/100 WBC (Bld) 72.5 % Normal 43.0-75.0 [facility] Comment on above: Performed By: #### U CLINT, CMP, LIPID, DBIL, PHOS, MG #### [facility] [address] [place] [address] Dr. Brae Causey Platelet mean volume (Bld) [Entitic vol] 9.6 fL Normal 9.5-13.5 [facility] Comment on above: Performed By: #### U CLINT, CMP, LIPID, DBIL, PHOS, MG #### [facility] [address] [place] [address] Dr. Brea Causey PLT 265 103/ul Normal 150-450 [facility] Comment on above: Performed By: #### U CLINT, CMP, LIPID, DBIL, PHOS, MG #### [facility] [address] [address] [address] Brea Causey RBC 4.07 106/ul Critically low 4.70-6.10 [facility] Comment on above: Performed By: #### U CLINT, CMP, LIPID, DBIL, PHOS, MG #### [facility] [address] [address] [address] Brea Causey WBC 6.0 103/ul Normal 4.0-11.0 [facility] Comment on above: Performed By: #### U CLINT, CMP, LIPID, DBIL, PHOS, MG #### [facility] [address] [address] [address] Brea Causey GLYCOHEMOGLOBIN A1Con 2021 ADA RECOMMENDATION SEE BELOW Normal [facility] Comment on above: Result Comment: ADA RECOMMENDED LIMIT 4.0 - 6.0 ADA THERAPEUTIC TARGET < 7.0 ACTION SUGGESTED > 7.0 Performed By: #### U CLINT, CMP, LIPID, DBIL, PHOS, MG #### [facility] [address] [address] [address] Brea Causey Glucose [Mass/Vol] 169 mg/dL Normal [facility] Comment on above: Performed By: #### U CILNT, CMP, LIPID, DBIL, PHOS, MG #### [facility] [address] [address] [address] Brea Causey HbA1c (Bld) [Mass fraction] 7.5 % Critically high 4.5-6.2 [facility] Comment on above: Performed By: #### U CLINT, CMP, LIPID, DBIL, PHOS, MG #### [facility] [address] [address] [address] Brea Causey LIPID PROFILEon 03-08-2022 CHOL-HDL RATIO NORM SEE BELOW Normal [facility] Comment on above: Result Comment: 3.3 - 4.4 LOW RISK 4.4 - 7.1 AVERAGE RISK 7.1 - 11.0 MODERATE RISK >11.0 HIGH RISK Performed By: #### U CLINT, CMP, LIPID, DBIL, PHOS, MG #### [facility] [address] [address] [address] Brea Causey Cholesterol [Mass/Vol] 77 mg/dL Normal <=200 [facility] Comment on above: Performed By: #### U CLINT, CMP, LIPID, DBIL, PHOS, MG #### [facility] [address] [address] [address] Brea Causey Cholesterol in HDL [Mass/Vol] 49 mg/dL Normal 40-60 [facility] Comment on above: Performed By: #### U CLINT, CMP, LIPID, DBIL, PHOS, MG #### [facility] [address] [address] [address] Brea Causey Cholesterol in LDL [Mass/Vol] 20.4 mg/dL Normal [facility] Comment on above: Performed By: #### U CLINT, CMP, LIPID, DBIL, PHOS, MG #### [facility] [address] [address] [address] Brea Causey Cholesterol.total/Cho lesterol in HDL [Mass ratio] 1.6 {ratio} Normal [facility] Comment on above: Performed By: #### U CLINT, CMP, LIPID, DBIL, PHOS, MG #### [facility] [address] [address] [address] Brea Causey HDL NORMAL > or = 60 mg/dl - LO W CARDIOVASCULAR RISK <40 mg/dl - HIGH CARDIOVASCULAR RISK Normal [facility] Comment on above: Performed By: #### U CLINT, CMP, LIPID, DBIL, PHOS, MG #### [facility] [address] [address] [address] Brea Causey LDL CALC NORMAL SEE BELOW Normal [facility] Comment on above: Result Comment: <100 mg/dl OPTIMAL 100 - 129 mg/dl NEAR OR ABOVE OPTIMAL 130 - 159 mg/dl BORDERLINE HIGH 160 - 189 mg/dl HIGH >190 mg/dl VERY HIGH Performed By: #### U CLINT, CMP, LIPID, DBIL, PHOS, MG #### [facility] [address] [address] [address] Brea Causey Triglyceride [Mass/Vol] 38 mg/dL Normal <=150 [facility] Comment on above: Performed By: #### U CLINT, CMP, LIPID, DBIL, PHOS, MG #### [facility] [address] [address] [address] Brea Causey VLDL CALC 7.6 mg/dL Normal [facility] Comment on above: Performed By: #### U CLINT, CMP, LIPID, DBIL, PHOS, MG #### [facility] [address] [place] [address] Dr. Brea Causey MAGNESIUMon 03-08-2022 Magnesium [Mass/Vol] 1.5 mg/dL Critically low 1.8-2.4 [facility] Comment on above: Performed By: #### U CLINT, CMP, LIPID, DBIL, PHOS, MG #### [facility] [address] [place] [address] Dr. Brea Causey PHOSPHORUSon 03-08-2022 Phosphate [Mass/Vol] 3.6 mg/dL Normal 2.6-4.7 [facility] Comment on above: Performed By: #### U CLINT, CMP, LIPID, DBIL, PHOS, MG #### [facility] [address] [place] [address] Dr. Brea Causey PROF 14(COMP METB)on 022 Albumin [Mass/Vol] 4.0 g/dL Normal 3.4-5.0 [facility] Comment on above: Performed By: #### U CLINT, CMP, LIPID, DBIL, PHOS, MG #### [facility] [address] [place] [address] Dr. Brea Causey Albumin/Globulin [Mass ratio] 1.2 {ratio} Normal [facility] Comment on above: Performed By: #### U CLINT, CMP, LIPID, DBIL, PHOS, MG #### [facility] [address] [address] [address] Brea Causey ALP [Catalytic activity/Vol] 176 U/L Critically high 46-116 [facility] Comment on above: Performed By: #### U CLINT, CMP, LIPID, DBIL, PHOS, MG #### [facility] [address] [place] [address] Dr. Brea Causey ALT [Catalytic activity/Vol] 21 U/L Normal 16-63 [facility] Comment on above: Performed By: #### U CLINT, CMP, LIPID, DBIL, PHOS, MG #### [facility] [address] [address] [address] Brea Causey Anion gap [Moles/Vol] 12.0 mmol/L Normal [facility] Comment on above: Performed By: #### U CLINT, CMP, LIPID, DBIL, PHOS, MG #### [facility] [address] [place] [address] Dr. Brea Causey AST [Catalytic activity/Vol] 13 U/L Critically low 15-37 [facility] Comment on above: Performed By: #### U CLINT, CMP, LIPID, DBIL, PHOS, MG #### [facility] [address] [place] [address] Dr. Brea Causey Bilirubin [Mass/Vol] 0.3 mg/dL Normal 0.2-1.0 [facility] Comment on above: Performed By: #### U CLINT, CMP, LIPID, DBIL, PHOS, MG #### [facility] [address] [place] [address] Dr. Brea Causey Calcium [Mass/Vol] 7.9 mg/dL Critically low 8.5-10.1 [facility] Comment on above: Performed By: #### U CLINT, CMP, LIPID, DBIL, PHOS, MG #### [facility] [address] [place] [address] Dr. Brea Causey Chloride [Moles/Vol] 100 mmol/L Normal 98-107 [facility] Comment on above: Performed By: #### U CLINT, CMP, LIPID, DBIL, PHOS, MG #### [facility] [address] [place] [address] Dr. Brea Causey CO2 [Moles/Vol] 27.3 mmol/L Normal 21.0-32.0 [facility] Comment on above: Performed By: #### U CLINT, CMP, LIPID, DBIL, PHOS, MG #### [facility] [address] [address] [address] Brea Causey Creatinine [Mass/Vol] 1.00 mg/dL Normal 0.70-1.30 [facility] Comment on above: Performed By: #### U CLINT, CMP, LIPID, DBIL, PHOS, MG #### [facility] [address] [address] [address] Brea Causey EGFR-AF CHINESE >60 Normal >=60 [facility] Comment on above: Performed By: #### U CLINT, CMP, LIPID, DBIL, PHOS, MG #### [facility] [address] [place] [address] Dr. Brea Causey EGFR-NON AF CHINESE >60 Normal >=60 [facility] Comment on above: Performed By: #### U CLINT, CMP, LIPID, DBIL, PHOS, MG #### [facility] [address] [address] [address] Brea Causey Globulin (S) [Mass/Vol] 3.3 g/dL Normal [facility] Comment on above: Performed By: #### U CLINT, CMP, LIPID, DBIL, PHOS, MG #### [facility] [address] [place] [address] Dr. Brea Causey Glucose [Mass/Vol] 155 mg/dL Critically high 74-106 [facility] Comment on above: Performed By: #### U CLINT, CMP, LIPID, DBIL, PHOS, MG #### [facility] [address] [address] [address] Brea Causey Potassium [Moles/Vol] 4.3 mmol/L Normal 3.5-5.1 [facility] Comment on above: Performed By: #### U CLINT, CMP, LIPID, DBIL, PHOS, MG #### [facility] [address] [address] [address] Brea Causey Protein [Mass/Vol] 7.3 g/dL Normal 6.4-8.2 [facility] Comment on above: Performed By: #### U CLINT, CMP, LIPID, DBIL, PHOS, MG #### [facility] [address] [address] [address] Brea Causey Sodium [Moles/Vol] 135 mmol/L Critically low 136-145 [facility] Comment on above: Performed By: #### U CLINT, CMP, LIPID, DBIL, PHOS, MG #### [facility] [address] [address] [address] Brea Causey Urea nitrogen [Mass/Vol] 13.0 mg/dL Normal 7.0-18.0 [facility] Comment on above: Performed By: #### U CLINT, CMP, LIPID, DBIL, PHOS, MG #### [facility] [address] [place] [address] Dr. Brea Causey Urea nitrogen/Creatinine [Mass ratio] 13.0 mg/mg Normal [facility] Comment on above: Performed By: #### U CLINT, CMP, LIPID, DBIL, PHOS, MG #### [facility] [address] [place] [address] Dr. Brea Causey URIC ACID SERUMon 03-08-2022 Urate [Mass/Vol] 7.3 mg/dL Critically high 3.5-7.2 [facility] Comment on above: Performed By: #### U CLINT, CMP, LIPID, DBIL, PHOS, MG #### [facility] [address] [place] [address] Dr. Brea Snyder 03-05-2022 L - -------- Specimen: [id number] Received: 03/05/22 Status: CHERI Bonilla Num: [id number] Spec Type: Surgical Subm Dr: Tj Wells MD Tissues: A Colon Biopsy (COLON BX) B Colon Biopsy (DIVERTICULAR COLITIS) Procedures: HE Stain/4, Gross/Micro L4/2 -------- Age/ Patient Sex Location Account Attending Physician -------- Wm Suarez 71[facility] [id number] Tj Wells MD -------- SPEC NUM: [id number] RECD: 03/05/22 STATUS: CHERI CONSTANTINEMeera NUM: [id number] ESTEFANI: 03/05/22- DR: Tj Wells MD ENTERED: 03/05/221001 [facility] DR: MICHELLE TYPE: Surgical DEPT: S ORDERED: HE Stain/4, Gross/Micro L4/2 ORDERED: HE Stain/4, Gross/Micro L4/2 Pathological Diagnosis A. Random colon, biopsy: Colonic mucosa with no significant pathologic abnormalities. B. Diverticular colon, biopsy: Unremarkable colonic mucosa with hyperplastic changes. Clinical Information Diarrhea Gross Description A. Received in formalin labeled with the patient's name, number and surveillance colon biopsies are three fragments of soft wheeler tissue averaging 0.3 cm. Entirely submitted in one cassette labeled A1. B. Received in formalin labeled with the patient's name, number and biopsy diverticular colitis is one fragment of soft wheeler tissue measuring 0.3 cm. Entirely submitted in one cassette labeled B1. -------- Specimen: [id number] Received: 03/05/22 Status: CHERI Bonilla Num: [id number] Spec Type: Surgical Subm Dr: Tj Wells MD Tissues: A Colon Biopsy (COLON BX) B Colon Biopsy (DIVERTICULAR COLITIS) Procedures: HE Stain/4, Gross/Micro L4/2 -------- Patient: Wm Suarez [id number] (Continued) -------- Specimen: [id number] Received: 03/05/22 (Continued) Signed (signature on file) Kalapna Shaw MD 03/07/22 1025 -------- Specimen: [id number] Received: 03/05/22 Status: CHERI Bonilla Num: [id number] Spec Type: Surgical Subm Dr: Tj Wells MD Tissues: A Colon Biopsy (COLON BX) B Colon Biopsy (DIVERTICULAR COLITIS) Procedures: HE Stain/4, Gross/Micro L4/2 -------- Patient: Wm Suarez [id number] (Continued) -------- Specimen: [id number] Received: 03/05/22 (Continued) Microscopic Description A. Two glass slides with H E stained material have been examined. The microscopic findings support the above pathologic diagnosis. B. Two glass slides with H E stained material have been examined. The microscopic findings support the above pathologic diagnosis. CPT Codes 98947?2 -------- -------- Specimen: [id number] Received: 03/05/22 Status: CHERI Bonilla Num: [id number] Spec Type: Surgical Subm Dr: Tj Wells MD Tissues: A Colon Biopsy (COLON BX) B Colon Biopsy (DIVERTICULAR COLITIS) Procedures: HE Stain/4, Gross/Micro L4/2 -------- Patient: Wm Suarez [id number] (Continued) -------- Signed (signature on file) Kalpana Shaw MD 03/07/22 1025 [facility] COVID-19 Antigenon 2 COVID-19 Antigen Healthcare Worker?: N Reference Range: Negative Negative results, from patients with symptom onset beyond five days, should be treated as presumptive and confirmation with a molecular assay, if necessary, for patient management, may be performed. Negative results do not rule out COVID-19 and should not be used as the sole basis for treatment or patient management decisions, including infection control decisions. Negative results should be considered in the context of a patient's recent exposures, history and the presence of clinical signs and symptoms consistent with COVID-19. The Marquise SARS Antigen ROCHELLE does not differentiate between SARS-CoV and SARS-CoV-2. This test was developed and its performance characteristic determined by [employer] and validated at [facility]. This test has not been FDA cleared or approved. This test has been authorized by FDA under an Emergency Use Authorization (EUA). This test has been validated in accordance with the FDA's Guidance Document (Policy for Diagnostics Testing in Laboratories Certified to Perform High Complexity Testing under CLIA prior to Emergency Use Authorization for Coronavirus Disease-2019 during the Public Health Emergency) issued on August 12, 2019. This test is only authorized for the duration of time the declaration that circumstances exist justifying the authorization of the emergency use of in vitro diagnostic tests for detection of SARS-CoV-2 virus and/or diagnosis of COVID-19 infection under section 564(b)(1) of the Act, 21 U.S.C. 360bbb-3(b)(1), unless the authorization is terminated or revoked sooner. SARS-CoV+SARS-CoV-2 (COVID-19) Ag [Presence] in Respiratory specimen by Rapid immunoassay Negative for SARS Antigen by ROCHELLE PERFORMED BY: [place] [address] PATHOLOGIST PRACTICING MD ANESTHESIOLOGIST FEI WOODRUFF M.D. Normal [facility] Comment on above: Performed By: #### C OVID-19 MARQUISE, SOFIANEG #### [address] COVID-19 SOFIAOrdered By: Sheila Wells on 03-01-2022 SARS-CoV+SARS-CoV-2 (COVID-19) Ag IA.rapid Ql (Resp) Negative Negative [facility] Comment on above: This is a duplicate Marquise SARS Antigen (ROCHELLE) result to be used for statistical tracking purpose only. No Panel InformationOrdered By: Tj Wells on 03-01-2022 SARS Antigen (LFIA) [place] Marquise Ag Negativeon 03-01-20 22 Marquise Ag Negative Negative Normal Negative [facility] Comment on above: Result Comment: This is a duplicate Marquise SARS Antigen (ROCHELLE) result to be used for statistical tracking purpose only. PERFORMED BY: [place] [address] PATHOLOGIST PRACTICING MD ANESTHESIOLOGIST FEI WOODRUFF M.D. Performed By: #### C OVID-19 MARQUISE, SOFIANEG #### [address] FK506 (TACROLIMUS) WHOLE BLO ODon 02-05-2022 Tacrolimus (FK506), Blood 5.4 ng/mL Normal 2.0-20.0 [facility] Comment on above: Result Comment: Trou gh (immediately following transplant) 15.0 . Trough (steady state, 2 weeks or more after transplant): 3.0 - 8.0 . Performed by LC-MS/MS technology. Performed By: #### U CLINT, CMP, LIPID, DBIL, PHOS, MG #### [facility] [address] [place] [address] Dr. Brea Causey BILIRUBIN CONJUGATED (DIRECT )on 02-01-2022 BILI, CONJUGATED 0.1 mg/dL Normal 0.0-0.[address] [facility] Comment on above: Performed By: #### C BC #### [facility] [address] [place] [address] Dr. Brea Causey CBC AUTO DIFFon 02-01-2022 BASO # 0.0 103/ul Normal 0.0-0.1 [facility] Comment on above: Performed By: #### B KVIRUS #### [facility] [address] [place] [address] Dr. Brea Causey Basophils/100 WBC (Bld) 0.6 % Normal 0.2-2.0 [facility] Comment on above: Performed By: #### B KVIRUS #### [facility] [address] [place] [address] Dr. Brea Causey EO # 0.2 103/ul Normal 0.0-0.7 [facility] Comment on above: Performed By: #### B KVIRUS #### [facility] [address] [place] [address] Dr. Brea Causey Eosinophils/100 WBC (Bld) 3.5 % Normal 0.9-7.0 [facility] Comment on above: Performed By: #### B KVIRUS #### [facility] [address] [place] [address] Dr. Brea Causey Erythrocyte distribution width (RBC) [Ratio] 13.0 % Normal 11.0-15.0 [facility] Comment on above: Performed By: #### B KVIRUS #### [facility] [address] [place] [address] Dr. Brea Causey Hematocrit (Bld) [Volume fraction] 36.9 % Critically low 42.0-54.0 [facility] Comment on above: Performed By: #### B KVIRUS #### [facility] [address] [place] [address] Dr. Brea Causey Hemoglobin (Bld) [Mass/Vol] 12.0 g/dL Critically low 14.0-18.0 [facility] Comment on above: Performed By: #### B KVIRUS #### [facility] [address] [place] [address] Dr. Brea Causey IG # 0.07 10e3/ul Critically high 0.00-0.03 [facility] Comment on above: Performed By: #### B KVIRUS #### [facility] [address] [place] [address] Dr. Brea Causey IG % 1.0 % Critically high 0.0-0.5 [facility] Comment on above: Performed By: #### B KVIRUS #### [facility] [address] [place] [address] Dr. Brea Causey LYMPH # 1.0 103/ul Critically low 1.2-3.8 [facility] Comment on above: Performed By: #### B KVIRUS #### [facility] [address] [place] [address] Dr. Brea Causey Lymphocytes/100 WBC (Bld) 14.2 % Critically low 20.5-60.0 [facility] Comment on above: Performed By: #### B KVIRUS #### [facility] [address] [place] [address] Dr. Brea Causey MANUAL DIFF REQ NO Normal [facility] Comment on above: Performed By: #### B KVIRUS #### [facility] [address] [place] [address] Dr. Brea Causey MCH (RBC) [Entitic mass] 29.1 pg Normal 25.9-34.0 [facility] Comment on above: Performed By: #### B KVIRUS #### [facility] [address] [place] [address] Dr. Brea Causey MCHC (RBC) [Mass/Vol] 32.5 g/dL Normal 29.9-35.2 [facility] Comment on above: Performed By: #### B KVIRUS #### [facility] [address] [place] [address] Dr. Brea Causey MCV (RBC) [Entitic vol] 89.6 fL Normal 80.0-94.0 [facility] Comment on above: Performed By: #### B KVIRUS #### [facility] [address] [place] [address] Dr. Brea Causey MONO # 0.7 103/ul Normal 0.3-0.8 [facility] Comment on above: Performed By: #### B KVIRUS #### [facility] [address] [place] [address] Dr. Brea Causey Monocytes/100 WBC (Bld) 9.9 % Normal 1.7-12.0 [facility] Comment on above: Performed By: #### B KVIRUS #### [facility] [address] [place] [address] Dr. Brea Causey NEUT # 4.9 103/ul Normal 1.4-6.5 [facility] Comment on above: Performed By: #### B KVIRUS #### [facility] [address] [place] [address] Dr. Brea Causey Neutrophils/100 WBC (Bld) 70.8 % Normal 43.0-75.0 [facility] Comment on above: Performed By: #### B KVIRUS #### [facility] [address] [address] [address] Brea Causey Platelet mean volume (Bld) [Entitic vol] 9.6 fL Normal 9.5-13.5 [facility] Comment on above: Performed By: #### B KVIRUS #### [facility] [address] [address] [address] Brea Causey PLT 247 103/ul Normal 150-450 [facility] Comment on above: Performed By: #### B KVIRUS #### [facility] [address] [place] [address] Dr. Brea Causey RBC 4.12 106/ul Critically low 4.70-6.10 [facility] Comment on above: Performed By: #### B KVIRUS #### [facility] [address] [place] [address] Dr. Brea Causey WBC 6.9 103/ul Normal 4.0-11.0 [facility] Comment on above: Performed By: #### B KVIRUS #### [facility] [address] [place] [address] Dr. Brea Causey LIPID PROFILEon 02-01-2022 CHOL-HDL RATIO NORM SEE BELOW Normal [facility] Comment on above: Result Comment: 3.3 - 4.4 LOW RISK 4.4 - 7.1 AVERAGE RISK 7.1 - 11.0 MODERATE RISK >11.0 HIGH RISK Performed By: #### C BC #### [facility] [address] [place] [address] Dr. Brea Causey Cholesterol [Mass/Vol] 77 mg/dL Normal <=200 [facility] Comment on above: Performed By: #### C BC #### [facility] [address] [place] [address] Dr. Brea Causey Cholesterol in HDL [Mass/Vol] 40 mg/dL Normal 40-60 [facility] Comment on above: Performed By: #### C BC #### [facility] [address] [place] [address] Dr. Brea Causey Cholesterol in LDL [Mass/Vol] 21.0 mg/dL Normal [facility] Comment on above: Performed By: #### C BC #### [facility] [address] [address] [address] Brea Causey Cholesterol.total/Cho lesterol in HDL [Mass ratio] 1.9 {ratio} Normal [facility] Comment on above: Performed By: #### C BC #### [facility] [address] [address] [address] Brea Causey HDL NORMAL > or = 60 mg/dl - LO W CARDIOVASCULAR RISK <40 mg/dl - HIGH CARDIOVASCULAR RISK Normal [facility] Comment on above: Performed By: #### C BC #### [facility] [address] [address] [address] Brea Causey LDL CALC NORMAL SEE BELOW Normal [facility] Comment on above: Result Comment: <100 mg/dl OPTIMAL 100 - 129 mg/dl NEAR OR ABOVE OPTIMAL 130 - 159 mg/dl BORDERLINE HIGH 160 - 189 mg/dl HIGH >190 mg/dl VERY HIGH Performed By: #### C BC #### [facility] [address] [place] [address] Dr. Brea Causey Triglyceride [Mass/Vol] 80 mg/dL Normal <=150 [facility] Comment on above: Performed By: #### C BC #### [facility] [address] [address] [address] Brea Causey VLDL CALC 16.0 mg/dL Normal [facility] Comment on above: Performed By: #### C BC #### [facility] [address] [address] [address] Brea Causey MAGNESIUMon 02-01-2022 Magnesium [Mass/Vol] 1.5 mg/dL Critically low 1.8-2.4 [facility] Comment on above: Performed By: #### C BC #### [facility] [address] [place] [address] Dr. Brea Causey PHOSPHORUSon 02-01-2022 Phosphate [Mass/Vol] 4.1 mg/dL Normal 2.6-4.7 [facility] Comment on above: Performed By: #### C BC #### [facility] [address] [place] [address] Dr. Brea Causey PROF 14(COMP METB)on 022 Albumin [Mass/Vol] 4.0 g/dL Normal 3.4-5.0 [facility] Comment on above: Performed By: #### C BC #### [facility] [address] [place] [address] Dr. Brea Causey Albumin/Globulin [Mass ratio] 1.3 {ratio} Normal [facility] Comment on above: Performed By: #### C BC #### [facility] [address] [place] [address] Dr. Brea Causey ALP [Catalytic activity/Vol] 162 U/L Critically high 46-116 [facility] Comment on above: Performed By: #### C BC #### [facility] [address] [place] [address] Dr. Brea Causey ALT [Catalytic activity/Vol] 25 U/L Normal 16-63 [facility] Comment on above: Performed By: #### C BC #### [facility] [address] [place] [address] Dr. Brea Causey Anion gap [Moles/Vol] 11.1 mmol/L Normal [facility] Comment on above: Performed By: #### C BC #### [facility] [address] [place] [address] Dr. Brea Causey AST [Catalytic activity/Vol] 16 U/L Normal 15-37 [facility] Comment on above: Performed By: #### C BC #### [facility] [address] [place] [address] Dr. Brea Causey Bilirubin [Mass/Vol] 0.4 mg/dL Normal 0.2-1.0 [facility] Comment on above: Performed By: #### C BC #### [facility] [address] [place] [address] Dr. Brea Causey Calcium [Mass/Vol] 8.2 mg/dL Critically low 8.5-10.1 [facility] Comment on above: Performed By: #### C BC #### [facility] [address] [place] [address] Dr. Brea Causey Chloride [Moles/Vol] 99 mmol/L Normal 98-107 [facility] Comment on above: Performed By: #### C BC #### [facility] [address] [place] [address] Dr. Brea Causey CO2 [Moles/Vol] 28.1 mmol/L Normal 21.0-32.0 [facility] Comment on above: Performed By: #### C BC #### [facility] [address] [address] [address] Brea Causey Creatinine [Mass/Vol] 1.13 mg/dL Normal 0.70-1.30 [facility] Comment on above: Performed By: #### C BC #### [facility] [address] [place] [address] Dr. Brea Causey EGFR-AF CHINESE >60 Normal >=60 [facility] Comment on above: Performed By: #### C BC #### [facility] [address] [place] [address] Dr. Brea Causey EGFR-NON AF CHINESE >60 Normal >=60 [facility] Comment on above: Performed By: #### C BC #### [facility] [address] [place] [address] Dr. Brea Causey Globulin (S) [Mass/Vol] 3.1 g/dL Normal [facility] Comment on above: Performed By: #### C BC #### [facility] [address] [place] [address] Dr. Brea Causey Glucose [Mass/Vol] 177 mg/dL Critically high 74-106 [facility] Comment on above: Performed By: #### C BC #### [facility] [address] [place] [address] Dr. Brea Causey Potassium [Moles/Vol] 5.2 mmol/L Critically high 3.5-5.1 [facility] Comment on above: Performed By: #### C BC #### [facility] [address] [place] [address] Dr. Brea Causey Protein [Mass/Vol] 7.1 g/dL Normal 6.4-8.2 [facility] Comment on above: Performed By: #### C BC #### [facility] [address] [address] [address] Brea Causey Sodium [Moles/Vol] 133 mmol/L Critically low 136-145 [facility] Comment on above: Performed By: #### C BC #### [facility] [address] [address] [address] Brea Causey Urea nitrogen [Mass/Vol] 12.0 mg/dL Normal 7.0-18.0 [facility] Comment on above: Performed By: #### C BC #### [facility] [address] [address] [address] Brea Causey Urea nitrogen/Creatinine [Mass ratio] 10.6 mg/mg Normal [facility] Comment on above: Performed By: #### C BC #### [facility] [address] [place] [address] Dr. Brea Causey URIC ACID SERUMon 02-01-2022 Urate [Mass/Vol] 7.7 mg/dL Critically high 3.5-7.2 [facility] Comment on above: Performed By: #### C BC #### [facility] [address] [place] [address] Dr. Brea Causey FK506 (TACROLIMUS) WHOLE BLO ODon 01-06-2022 Tacrolimus (FK506), Blood 11.4 ng/mL Normal 2.0-20.0 [facility] Comment on above: Result Comment: Trou gh (immediately following transplant) 15.0 . Trough (steady state, 2 weeks or more after transplant): 3.0 - 8.0 . Performed by LC-MS/MS technology. Performed By: #### B KVIRUS #### [facility] [address] [place] [address] Dr. Brea Causey BILIRUBIN CONJUGATED (DIRECT )on 01-04-2022 BILI, CONJUGATED 0.1 mg/dL Normal 0.0-0.2 [facility] Comment on above: Performed By: #### U CLINT, CMP, LIPID, DBIL, PHOS, MG #### [facility] [address] [place] [address] Dr. Brea Causey BOX TEST SENT OUTon 01-05-20 22 SENT TO REF LAB 01/04/2022 Normal [facility] Comment on above: Performed By: #### U CLINT, CMP, LIPID, DBIL, PHOS, MG #### [facility] [address] [address] [address] Brea Causey CBC AUTO DIFFon 01-04-2022 BASO # 0.0 103/ul Normal 0.0-0.1 [facility] Comment on above: Performed By: #### U CLINT, CMP, LIPID, DBIL, PHOS, MG #### [facility] [address] [address] [address] Brea Causey Basophils/100 WBC (Bld) 0.5 % Normal 0.2-2.0 [facility] Comment on above: Performed By: #### U CLINT, CMP, LIPID, DBIL, PHOS, MG #### [facility] [address] [place] [address] Dr. Brea Causey EO # 0.3 103/ul Normal 0.0-0.7 [facility] Comment on above: Performed By: #### U CLINT, CMP, LIPID, DBIL, PHOS, MG #### [facility] [address] [place] [address] Dr. Brea Causey Eosinophils/100 WBC (Bld) 3.9 % Normal 0.9-7.0 [facility] Comment on above: Performed By: #### U CLINT, CMP, LIPID, DBIL, PHOS, MG #### [facility] [address] [place] [address] Dr. Brea Causey Erythrocyte distribution width (RBC) [Ratio] 13.1 % Normal 11.0-15.0 [facility] Comment on above: Performed By: #### U CLINT, CMP, LIPID, DBIL, PHOS, MG #### [facility] [address] [place] [address] Dr. Brea Causey Hematocrit (Bld) [Volume fraction] 37.4 % Critically low 42.0-54.0 [facility] Comment on above: Performed By: #### U CLINT, CMP, LIPID, DBIL, PHOS, MG #### [facility] [address] [address] [address] Brea Causey Hemoglobin (Bld) [Mass/Vol] 12.0 g/dL Critically low 14.0-18.0 [facility] Comment on above: Performed By: #### U CLINT, CMP, LIPID, DBIL, PHOS, MG #### [facility] [address] [address] [address] Brea Causey IG # 0.07 10e3/ul Critically high 0.00-0.03 [facility] Comment on above: Performed By: #### U CLINT, CMP, LIPID, DBIL, PHOS, MG #### [facility] [address] [place] [address] Dr. Brea Causey IG % 1.1 % Critically high 0.0-0.5 [facility] Comment on above: Performed By: #### U CLINT, CMP, LIPID, DBIL, PHOS, MG #### [facility] [address] [place] [address] Dr. Brea Causey LYMPH # 0.8 103/ul Critically low 1.2-3.8 [facility] Comment on above: Performed By: #### U CLINT, CMP, LIPID, DBIL, PHOS, MG #### [facility] [address] [place] [address] Dr. Brea Causey Lymphocytes/100 WBC (Bld) 12.2 % Critically low 20.5-60.0 [facility] Comment on above: Performed By: #### U CLINT, CMP, LIPID, DBIL, PHOS, MG #### [facility] [address] [place] [address] Dr. Brea Causey MANUAL DIFF REQ NO Normal [facility] Comment on above: Performed By: #### U CLINT, CMP, LIPID, DBIL, PHOS, MG #### [facility] [address] [place] [address] Dr. Brea Causey MCH (RBC) [Entitic mass] 29.1 pg Normal 25.9-34.0 [facility] Comment on above: Performed By: #### U CLINT, CMP, LIPID, DBIL, PHOS, MG #### [facility] [address] [place] [address] Dr. Brea Causey MCHC (RBC) [Mass/Vol] 32.1 g/dL Normal 29.9-35.2 [facility] Comment on above: Performed By: #### U CLINT, CMP, LIPID, DBIL, PHOS, MG #### [facility] [address] [place] [address] Dr. Brea Causey MCV (RBC) [Entitic vol] 90.6 fL Normal 80.0-94.0 [facility] Comment on above: Performed By: #### U CLINT, CMP, LIPID, DBIL, PHOS, MG #### [facility] [address] [place] [address] Dr. Brea Causey MONO # 0.5 103/ul Normal 0.3-0.8 [facility] Comment on above: Performed By: #### U CLINT, CMP, LIPID, DBIL, PHOS, MG #### [facility] [address] [place] [address] Dr. Brea Causey Monocytes/100 WBC (Bld) 8.0 % Normal 1.7-12.0 [facility] Comment on above: Performed By: #### U CLINT, CMP, LIPID, DBIL, PHOS, MG #### [facility] [address] [place] [address] Dr. Brea Causey NEUT # 5.0 103/ul Normal 1.4-6.5 [facility] Comment on above: Performed By: #### U CLINT, CMP, LIPID, DBIL, PHOS, MG #### [facility] [address] [place] [address] Dr. Brea Causey Neutrophils/100 WBC (Bld) 74.3 % Normal 43.0-75.0 [facility] Comment on above: Performed By: #### U CLINT, CMP, LIPID, DBIL, PHOS, MG #### [facility] [address] [place] [address] Dr. Brea Causey Platelet mean volume (Bld) [Entitic vol] 9.5 fL Normal 9.5-13.5 [facility] Comment on above: Performed By: #### U CLINT, CMP, LIPID, DBIL, PHOS, MG #### [facility] [address] [address] [address] Brea Causey PLT 243 103/ul Normal 150-450 [facility] Comment on above: Performed By: #### U CLINT, CMP, LIPID, DBIL, PHOS, MG #### [facility] [address] [address] [address] Brea Causey RBC 4.13 106/ul Critically low 4.70-6.10 [facility] Comment on above: Performed By: #### U CLINT, CMP, LIPID, DBIL, PHOS, MG #### [facility] [address] [address] [address] Brea Causey WBC 6.7 103/ul Normal 4.0-11.0 [facility] Comment on above: Performed By: #### U CLINT, CMP, LIPID, DBIL, PHOS, MG #### [facility] [address] [address] [address] Brea Causey LIPID PROFILEon 01-04-2022 CHOL-HDL RATIO NORM SEE BELOW Normal [facility] Comment on above: Result Comment: 3.3 - 4.4 LOW RISK 4.4 - 7.1 AVERAGE RISK 7.1 - 11.0 MODERATE RISK >11.0 HIGH RISK Performed By: #### U CLINT, CMP, LIPID, DBIL, PHOS, MG #### [facility] [address] [address] [address] Brea Causey Cholesterol [Mass/Vol] 81 mg/dL Normal <=200 [facility] Comment on above: Performed By: #### U CLINT, CMP, LIPID, DBIL, PHOS, MG #### [facility] [address] [place] [address] [address] Brea Causey Cholesterol in HDL [Mass/Vol] 43 mg/dL Normal 40-60 [facility] Comment on above: Performed By: #### U CLINT, CMP, LIPID, DBIL, PHOS, MG #### [facility] [address] [address] [address] Brea Causey Cholesterol in LDL [Mass/Vol] 26.0 mg/dL Normal [facility] Comment on above: Performed By: #### U CLINT, CMP, LIPID, DBIL, PHOS, MG #### [facility] [address] [address] [address] Brea Causey Cholesterol.total/Cho lesterol in HDL [Mass ratio] 1.9 {ratio} Normal [facility] Comment on above: Performed By: #### U CLINT, CMP, LIPID, DBIL, PHOS, MG #### [facility] [address] [address] [address] Brea Causey HDL NORMAL > or = 60 mg/dl - LO W CARDIOVASCULAR RISK <40 mg/dl - HIGH CARDIOVASCULAR RISK Normal [facility] Comment on above: Performed By: #### U CLINT, CMP, LIPID, DBIL, PHOS, MG #### [facility] [address] [address] [address] Brea Causey LDL CALC NORMAL SEE BELOW Normal [facility] Comment on above: Result Comment: <100 mg/dl OPTIMAL 100 - 129 mg/dl NEAR OR ABOVE OPTIMAL 130 - 159 mg/dl BORDERLINE HIGH 160 - 189 mg/dl HIGH >190 mg/dl VERY HIGH Performed By: #### U CLINT, CMP, LIPID, DBIL, PHOS, MG #### [facility] [address] [address] [address] Brea Causey Triglyceride [Mass/Vol] 60 mg/dL Normal <=150 [facility] Comment on above: Performed By: #### U CLINT, CMP, LIPID, DBIL, PHOS, MG #### [facility] [address] [address] [address] Brea Causey VLDL CALC 12.0 mg/dL Normal [facility] Comment on above: Performed By: #### U CLINT, CMP, LIPID, DBIL, PHOS, MG #### [facility] [address] [address] [address] Brea Causey MAGNESIUMon 01-04-2022 Magnesium [Mass/Vol] 1.4 mg/dL Critically low 1.8-2.4 [facility] Comment on above: Performed By: #### U CLINT, CMP, LIPID, DBIL, PHOS, MG #### [facility] [address] [place] [address] Dr. Brea Causey PHOSPHORUSon 01-04-2022 Phosphate [Mass/Vol] 4.4 mg/dL Normal 2.6-4.7 [facility] Comment on above: Performed By: #### U CLINT, CMP, LIPID, DBIL, PHOS, MG #### [facility] [address] [place] [address] Dr. Brea Causey PROF 14(COMP METB)on 022 Albumin [Mass/Vol] 3.9 g/dL Normal 3.4-5.0 [facility] Comment on above: Performed By: #### U CLINT, CMP, LIPID, DBIL, PHOS, MG #### [facility] [address] [place] [address] Dr. Brea Causey Albumin/Globulin [Mass ratio] 1.2 {ratio} Normal [facility] Comment on above: Performed By: #### U CLINT, CMP, LIPID, DBIL, PHOS, MG #### [facility] [address] [place] [address] Dr. Brea Causey ALP [Catalytic activity/Vol] 155 U/L Critically high 46-116 [facility] Comment on above: Performed By: #### U CLINT, CMP, LIPID, DBIL, PHOS, MG #### [facility] [address] [place] [address] Dr. Brea Causey ALT [Catalytic activity/Vol] 27 U/L Normal 16-63 [facility] Comment on above: Performed By: #### U CLINT, CMP, LIPID, DBIL, PHOS, MG #### [facility] [address] [place] [address] Dr. Brea Causey Anion gap [Moles/Vol] 14.6 mmol/L Normal [facility] Comment on above: Performed By: #### U CLINT, CMP, LIPID, DBIL, PHOS, MG #### [facility] [address] [address] [address] Brea Causey AST [Catalytic activity/Vol] 17 U/L Normal 15-37 [facility] Comment on above: Performed By: #### U CLINT, CMP, LIPID, DBIL, PHOS, MG #### [facility] [address] [place] [address] Dr. Brea Causey Bilirubin [Mass/Vol] 0.3 mg/dL Normal 0.2-1.0 [facility] Comment on above: Performed By: #### U CLINT, CMP, LIPID, DBIL, PHOS, MG #### [facility] [address] [place] [address] Dr. Brea Causey Calcium [Mass/Vol] 8.1 mg/dL Critically low 8.5-10.1 [facility] Comment on above: Performed By: #### U CLINT, CMP, LIPID, DBIL, PHOS, MG #### [facility] [address] [place] [address] Dr. Brea Causey Chloride [Moles/Vol] 99 mmol/L Normal 98-107 [facility] Comment on above: Performed By: #### U CLINT, CMP, LIPID, DBIL, PHOS, MG #### [facility] [address] [place] [address] Dr. Brea Causey CO2 [Moles/Vol] 25.0 mmol/L Normal 21.0-32.[address] [facility] Comment on above: Performed By: #### U CLINT, CMP, LIPID, DBIL, PHOS, MG #### [facility] [address] [place] [address] Dr. Brea Causey Creatinine [Mass/Vol] 1.05 mg/dL Normal 0.70-1.30 [facility] Comment on above: Performed By: #### U CLINT, CMP, LIPID, DBIL, PHOS, MG #### [facility] [address] [place] [address] Dr. Brea Causey EGFR-AF CHINESE >60 Normal >=[address] [facility] Comment on above: Performed By: #### U CLINT, CMP, LIPID, DBIL, PHOS, MG #### [facility] [address] [address] [address] Brea Causey EGFR-NON AF CHINESE >60 Normal >=60 [facility] Comment on above: Performed By: #### U CLINT, CMP, LIPID, DBIL, PHOS, MG #### [facility] [address] [address] [address] Brea Causey Globulin (S) [Mass/Vol] 3.2 g/dL Normal [facility] Comment on above: Performed By: #### U CLINT, CMP, LIPID, DBIL, PHOS, MG #### [facility] [address] [place] [address] Dr. Brea Causey Glucose [Mass/Vol] 177 mg/dL Critically high 74-106 [facility] Comment on above: Performed By: #### U CLINT, CMP, LIPID, DBIL, PHOS, MG #### [facility] [address] [place] [address] Dr. Brea Causey Potassium [Moles/Vol] 4.6 mmol/L Normal 3.5-5.1 [facility] Comment on above: Performed By: #### U CLINT, CMP, LIPID, DBIL, PHOS, MG #### [facility] [address] [place] [address] Dr. Brea Causey Protein [Mass/Vol] 7.1 g/dL Normal 6.4-8.2 [facility] Comment on above: Performed By: #### U CLINT, CMP, LIPID, DBIL, PHOS, MG #### [facility] [address] [place] [address] Dr. Brea Causey Sodium [Moles/Vol] 134 mmol/L Critically low 136-145 [facility] Comment on above: Performed By: #### U CLINT, CMP, LIPID, DBIL, PHOS, MG #### [facility] [address] [place] [address] Dr. Brea Causey Urea nitrogen [Mass/Vol] 14.0 mg/dL Normal 7.0-18.0 [facility] Comment on above: Performed By: #### U CLINT, CMP, LIPID, DBIL, PHOS, MG #### [facility] [address] [address] [address] Brea Causey Urea nitrogen/Creatinine [Mass ratio] 13.3 mg/mg Normal [facility] Comment on above: Performed By: #### U CLINT, CMP, LIPID, DBIL, PHOS, MG #### [facility] [address] [place] [address] Dr. Brea Causey URIC ACID SERUMon 01-04-2022 Urate [Mass/Vol] 7.6 mg/dL Critically high 3.5-7.2 [facility] Comment on above: Performed By: #### U CLINT, CMP, LIPID, DBIL, PHOS, MG #### [facility] [address] [place] [address] Dr. Brea Causey BK VIRUS PCR QUANTon 022 BKV DNA QUANT PCR PLASMA Negative Normal Negative [facility] Comment on above: Result Comment: No B K DNA detected. . The linear range of the assay is 22 - 100,000,000 IU/mL. Performed By: #### B KVIRUS #### [facility] [address] [place] [address] Dr. Brea Causey Log10 BKV DNA Plasma Normal [facility] Comment on above: Performed By: #### B KVIRUS #### [facility] [address] [place] [address] Dr. Brea Causey FK506 (TACROLIMUS) WHOLE BLO ODon 12-03-2021 Tacrolimus (FK506), Blood 5.6 ng/mL Normal 2.0-20.0 [facility] Comment on above: Result Comment: Trou gh (immediately following transplant) 15.0 . Trough (steady state, 2 weeks or more after transplant): 3.0 - 8.0 . Performed by LC-MS/MS technology. Performed By: #### U CLINT, CMP, LIPID, DBIL, PHOS, MG #### [facility] [address] [place] [address] Dr. Brea Causey TESTOSTERONE, FREE,DIRECT, T OTALon 07-25-2022 Free Testosterone(Direct) 7.5 pg/mL Normal 6.6-18.1 [facility] Comment on above: Result Comment: Perf ormed at: BN Performed By: #### U CLINT, CMP, LIPID, DBIL, PHOS, MG #### [facility] [address] [place] [address] Dr. Brea Causey Testosterone [Mass/Vol] 467 ng/dL Normal 264-916 [facility] Comment on above: Result Comment: Adul t male reference interval is based on a population of healthy nonobese males (BMI <30) between 19 and 39 years old. daniel Harris.al. JCEM 2017,102;[id number]. PMID: [id number]. Performed at: CB Performed By: #### U CLINT, CMP, LIPID, DBIL, PHOS, MG #### [facility] [address] [place] [address] Dr. Brea Causey BILIRUBIN CONJUGATED (DIRECT )on 11-30-2021 BILI, CONJUGATED 0.2 mg/dL Normal 0.0-0.2 [facility] Comment on above: Performed By: #### B KVIRUS #### [facility] [address] [address] [address] Brea Causey CBC AUTO DIFFon 11-30-2021 BASO # 0.0 103/ul Normal 0.0-0.1 [facility] Comment on above: Performed By: #### U CLINT, CMP, LIPID, DBIL, PHOS, MG #### [facility] [address] [place] [address] Dr. Brea Causey Basophils/100 WBC (Bld) 0.6 % Normal 0.2-2.0 [facility] Comment on above: Performed By: #### U CLINT, CMP, LIPID, DBIL, PHOS, MG #### [facility] [address] [place] [address] Dr. Brea Causey EO # 0.2 103/ul Normal 0.0-0.7 [facility] Comment on above: Performed By: #### U CLINT, CMP, LIPID, DBIL, PHOS, MG #### [facility] [address] [address] [address] Brea Causey Eosinophils/100 WBC (Bld) 2.7 % Normal 0.9-7.0 [facility] Comment on above: Performed By: #### U CLINT, CMP, LIPID, DBIL, PHOS, MG #### [facility] [address] [address] [address] Brea Causey Erythrocyte distribution width (RBC) [Ratio] 13.0 % Normal 11.0-15.0 [facility] Comment on above: Performed By: #### U CLINT, CMP, LIPID, DBIL, PHOS, MG #### [facility] [address] [place] [address] Dr. Brea Causey Hematocrit (Bld) [Volume fraction] 37.6 % Critically low 42.0-54.0 [facility] Comment on above: Performed By: #### U CLINT, CMP, LIPID, DBIL, PHOS, MG #### [facility] [address] [place] [address] Dr. Brea Causey Hemoglobin (Bld) [Mass/Vol] 12.4 g/dL Critically low 14.0-18.0 [facility] Comment on above: Performed By: #### U CLINT, CMP, LIPID, DBIL, PHOS, MG #### [facility] [address] [place] [address] Dr. Brea Causey IG # 0.06 10e3/ul Critically high 0.00-0.03 The [facility] Comment on above: Performed By: #### U CLINT, CMP, LIPID, DBIL, PHOS, MG #### [facility] [address] [place] [address] Dr. Brea Causey IG % 0.9 % Critically high 0.0-0.5 [facility] Comment on above: Performed By: #### U CLINT, CMP, LIPID, DBIL, PHOS, MG #### [facility] [address] [place] [address] Dr. Brea aCusey LYMPH # 1.0 103/ul Critically low 1.2-3.8 [facility] Comment on above: Performed By: #### U CLINT, CMP, LIPID, DBIL, PHOS, MG #### [facility] [address] [place] [address] Dr. Brea Causey Lymphocytes/100 WBC (Bld) 14.6 % Critically low 20.5-60.0 [facility] Comment on above: Performed By: #### U CLINT, CMP, LIPID, DBIL, PHOS, MG #### [facility] [address] [place] [address] Dr. Brea Causey MANUAL DIFF REQ NO Normal [facility] Comment on above: Performed By: #### U CLINT, CMP, LIPID, DBIL, PHOS, MG #### [facility] [address] [place] [address] Dr. Brea Causey MCH (RBC) [Entitic mass] 29.4 pg Normal 25.9-34.0 [facility] Comment on above: Performed By: #### U CLINT, CMP, LIPID, DBIL, PHOS, MG #### [facility] [address] [place] [address] Dr. Brea Causey MCHC (RBC) [Mass/Vol] 33.0 g/dL Normal 29.9-35.2 [facility] Comment on above: Performed By: #### U CLINT, CMP, LIPID, DBIL, PHOS, MG #### [facility] [address] [place] [address] Dr. Brea Causey MCV (RBC) [Entitic vol] 89.1 fL Normal 80.0-94.0 [facility] Comment on above: Performed By: #### U CLINT, CMP, LIPID, DBIL, PHOS, MG #### [facility] [address] [place] [address] Dr. Brea Causey MONO # 0.7 103/ul Normal 0.3-0.8 [facility] Comment on above: Performed By: #### U CLINT, CMP, LIPID, DBIL, PHOS, MG #### [facility] [address] [place] [address] Dr. Brea Causey Monocytes/100 WBC (Bld) 10.0 % Normal 1.7-12.0 [facility] Comment on above: Performed By: #### U CLINT, CMP, LIPID, DBIL, PHOS, MG #### [facility] [address] [address] [address] Brea Causey NEUT # 4.8 103/ul Normal 1.4-6.5 [facility] Comment on above: Performed By: #### U CLINT, CMP, LIPID, DBIL, PHOS, MG #### [facility] [address] [address] [address] Brea Causey Neutrophils/100 WBC (Bld) 71.2 % Normal 43.0-75.0 [facility] Comment on above: Performed By: #### U CLINT, CMP, LIPID, DBIL, PHOS, MG #### [facility] [address] [address] [address] Brea Causey Platelet mean volume (Bld) [Entitic vol] 9.0 fL Critically low 9.5-13.5 [facility] Comment on above: Performed By: #### U CLINT, CMP, LIPID, DBIL, PHOS, MG #### [facility] [address] [address] [address] Brea Causey PLT 280 103/ul Normal 150-450 [facility] Comment on above: Performed By: #### U CLINT, CMP, LIPID, DBIL, PHOS, MG #### [facility] [address] [address] [address] Brea Causey RBC 4.22 106/ul Critically low 4.70-6.10 [facility] Comment on above: Performed By: #### U CLINT, CMP, LIPID, DBIL, PHOS, MG #### [facility] [address] [address] [address] Brea Causey WBC 6.7 103/ul Normal 4.0-11.0 [facility] Comment on above: Performed By: #### U CLINT, CMP, LIPID, DBIL, PHOS, MG #### [facility] [address] [address] [address] Brea Causey GLYCOHEMOGLOBIN A1Con 2021 ADA RECOMMENDATION SEE BELOW Normal [facility] Comment on above: Result Comment: ADA RECOMMENDED LIMIT 4.0 - 6.0 ADA THERAPEUTIC TARGET < 7.0 ACTION SUGGESTED > 7.0 Performed By: #### B KVIRUS #### [facility] [address] [place] [address] Dr. Brea Causey Glucose [Mass/Vol] 171 mg/dL Normal [facility] Comment on above: Performed By: #### B KVIRUS #### [facility] [address] [address] [address] Brea Causey HbA1c (Bld) [Mass fraction] 7.6 % Critically high 4.5-6.2 [facility] Comment on above: Performed By: #### B KVIRUS #### [facility] [address] [place] [address] Dr. Brea Causey LIPID PROFILEon 11-30-2021 CHOL-HDL RATIO NORM SEE BELOW Normal [facility] Comment on above: Result Comment: 3.3 - 4.4 LOW RISK 4.4 - 7.1 AVERAGE RISK 7.1 - 11.0 MODERATE RISK >11.0 HIGH RISK Performed By: #### C BC #### [facility] [address] [place] [address] Dr. Brea Causey Cholesterol [Mass/Vol] 75 mg/dL Normal <=200 [facility] Comment on above: Performed By: #### C BC #### [facility] [address] [place] [address] Dr. Brea Causey Cholesterol in HDL [Mass/Vol] 41 mg/dL Normal 40-60 [facility] Comment on above: Performed By: #### C BC #### [facility] [address] [address] [address] Brea Causey Cholesterol in LDL [Mass/Vol] 18.6 mg/dL Normal [facility] Comment on above: Performed By: #### C BC #### [facility] [address] [place] [address] Dr. Brea Causey Cholesterol.total/Cho lesterol in HDL [Mass ratio] 1.8 {ratio} Normal [facility] Comment on above: Performed By: #### C BC #### [facility] [address] [place] [address] Dr. Brea Causey HDL NORMAL > or = 60 mg/dl - LO W CARDIOVASCULAR RISK <40 mg/dl - HIGH CARDIOVASCULAR RISK Normal [facility] Comment on above: Performed By: #### C BC #### [facility] [address] [place] [address] Dr. Brea Causey LDL CALC NORMAL SEE BELOW Normal [facility] Comment on above: Result Comment: <100 mg/dl OPTIMAL 100 - 129 mg/dl NEAR OR ABOVE OPTIMAL 130 - 159 mg/dl BORDERLINE HIGH 160 - 189 mg/dl HIGH >190 mg/dl VERY HIGH Performed By: #### C BC #### [facility] [address] [place] [address] Dr. Brea Causey Triglyceride [Mass/Vol] 77 mg/dL Normal <=150 [facility] Comment on above: Performed By: #### C BC #### [facility] [address] [place] [address] Dr. Brea Causey VLDL CALC 15.4 mg/dL Normal [facility] Comment on above: Performed By: #### C BC #### [facility] [address] [place] [address] Dr. Brea Causey MAGNESIUMon 11-30-2021 Magnesium [Mass/Vol] 1.4 mg/dL Critically low 1.8-2.4 [facility] Comment on above: Performed By: #### B KVIRUS #### [facility] [address] [place] [address] Dr. Brea Causey PHOSPHORUSon 11-30-2021 Phosphate [Mass/Vol] 4.1 mg/dL Normal 2.6-4.7 [facility] Comment on above: Performed By: #### C BC #### [facility] [address] [place] [address] Dr. Brea Causey PROF 14(COMP METB)on 022 Albumin [Mass/Vol] 4.2 g/dL Normal 3.4-5.0 [facility] Comment on above: Performed By: #### C BC #### [facility] [address] [place] [address] Dr. Brea Causey Albumin/Globulin [Mass ratio] 1.3 {ratio} Normal [facility] Comment on above: Performed By: #### C BC #### [facility] [address] [place] [address] Dr. Brea Causey ALP [Catalytic activity/Vol] 148 U/L Critically high 46-116 [facility] Comment on above: Performed By: #### C BC #### [facility] [address] [place] [address] Dr. Brea Causey ALT [Catalytic activity/Vol] 36 U/L Normal 16-63 [facility] Comment on above: Performed By: #### C BC #### [facility] [address] [place] [address] Dr. Brea Causey Anion gap [Moles/Vol] 14.7 mmol/L Normal [facility] Comment on above: Performed By: #### C BC #### [facility] [address] [place] [address] Dr. Brea Causey AST [Catalytic activity/Vol] 21 U/L Normal 15-37 [facility] Comment on above: Performed By: #### C BC #### [facility] [address] [place] [address] Dr. Brea Causey Bilirubin [Mass/Vol] 0.4 mg/dL Normal 0.2-1.0 [facility] Comment on above: Performed By: #### C BC #### [facility] [address] [place] [address] Dr. Brea Causey Calcium [Mass/Vol] 8.3 mg/dL Critically low 8.5-10.1 [facility] Comment on above: Performed By: #### C BC #### [facility] [address] [place] [address] Dr. Brea Causey Chloride [Moles/Vol] 98 mmol/L Normal 98-107 [facility] Comment on above: Performed By: #### C BC #### [facility] [address] [place] [address] Dr. Brea Causey CO2 [Moles/Vol] 27.2 mmol/L Normal 21.0-32.0 [facility] Comment on above: Performed By: #### C BC #### [facility] [address] [place] [address] Dr. Brea Causey Creatinine [Mass/Vol] 1.10 mg/dL Normal 0.70-1.30 [facility] Comment on above: Performed By: #### C BC #### [facility] [address] [place] [address] Dr. Brea Causey EGFR-AF CHINESE >60 Normal >=60 [facility] Comment on above: Performed By: #### C BC #### [facility] [address] [place] [address] Dr. Brea Causey EGFR-NON AF CHINESE >60 Normal >=60 [facility] Comment on above: Performed By: #### C BC #### [facility] [address] [place] [address] Dr. Brea Causey Globulin (S) [Mass/Vol] 3.2 g/dL Normal [facility] Comment on above: Performed By: #### C BC #### [facility] [address] [place] [address] Dr. Brea Causey Glucose [Mass/Vol] 173 mg/dL Critically high 74-106 [facility] Comment on above: Performed By: #### C BC #### [facility] [address] [place] [address] Dr. Brea Causey Potassium [Moles/Vol] 4.9 mmol/L Normal 3.5-5.1 [facility] Comment on above: Performed By: #### C BC #### [facility] [address] [place] [address] Dr. Brea Causey Protein [Mass/Vol] 7.4 g/dL Normal 6.4-8.2 [facility] Comment on above: Performed By: #### C BC #### [facility] [address] [place] [address] Dr. Brea Causey Sodium [Moles/Vol] 135 mmol/L Critically low 136-145 [facility] Comment on above: Performed By: #### C BC #### [facility] [address] [place] [address] Dr. Brea Causey Urea nitrogen [Mass/Vol] 14.0 mg/dL Normal 7.0-18.0 [facility] Comment on above: Performed By: #### C BC #### [facility] [address] [place] [address] Dr. Brea Causey Urea nitrogen/Creatinine [Mass ratio] 12.7 mg/mg Normal [facility] Comment on above: Performed By: #### C BC #### [facility] [address] [place] [address] Dr. Brea Causey URIC ACID SERUMon 11-30-2021 Urate [Mass/Vol] 7.8 mg/dL Critically high 3.5-7.2 [facility] Comment on above: Performed By: #### C BC #### [facility] [address] [place] [address] Dr. Brea Causey BNPon 11-14-2021 Natriuretic peptide B (Bld) [Mass/Vol] 350.0 pg/mL Normal <=900.0 [facility] Comment on above: Performed By: #### C BC #### [facility] [address] [place] [address] Dr. Brea Causey CBC AUTO DIFFon 11-14-2021 BASO # 0.0 103/ul Normal 0.0-0.1 [facility] Comment on above: Performed By: #### C BC #### [facility] [address] [place] [address] Dr. Brea Causey Basophils/100 WBC (Bld) 0.1 % Critically low 0.2-2.0 [facility] Comment on above: Performed By: #### C BC #### [facility] [address] [place] [address] Dr. Brea Causey EO # 0.2 103/ul Normal 0.0-0.7 [facility] Comment on above: Performed By: #### C BC #### [facility] [address] [place] [address] Dr. Brea Causey Eosinophils/100 WBC (Bld) 1.4 % Normal 0.9-7.0 [facility] Comment on above: Performed By: #### C BC #### [facility] [address] [place] [address] Dr. Brea Causey Erythrocyte distribution width (RBC) [Ratio] 13.1 % Normal 11.0-15.0 [facility] Comment on above: Performed By: #### C BC #### [facility] [address] [place] [address] Dr. Brea Causey Hematocrit (Bld) [Volume fraction] 39.4 % Critically low 42.0-54.0 [facility] Comment on above: Performed By: #### C BC #### [facility] [address] [place] [address] Dr. Brea Causey Hemoglobin (Bld) [Mass/Vol] 13.2 g/dL Critically low 14.0-18.0 [facility] Comment on above: Performed By: #### C BC #### [facility] [address] [place] [address] Dr. Brea Causey IG # 0.11 10e3/ul Critically high 0.00-0.03 [facility] Comment on above: Performed By: #### C BC #### [facility] [address] [place] [address] Dr. Brea Causey IG % 0.6 % Critically high 0.0-0.5 [facility] Comment on above: Performed By: #### C BC #### [facility] [address] [place] [address] Dr. Brea Causey LYMPH # 1.1 103/ul Critically low 1.2-3.8 [facility] Comment on above: Performed By: #### C BC #### [facility] [address] [place] [address] Dr. Brea Causey Lymphocytes/100 WBC (Bld) 6.7 % Critically low 20.5-60.0 [facility] Comment on above: Performed By: #### C BC #### [facility] [address] [place] [address] Dr. Brea Causey MANUAL DIFF REQ NO Normal [facility] Comment on above: Performed By: #### C BC #### [facility] [address] [place] [address] Dr. Brea Causey MCH (RBC) [Entitic mass] 29.5 pg Normal 25.9-34.0 [facility] Comment on above: Performed By: #### C BC #### [facility] [address] [place] [address] Dr. Brea Causey MCHC (RBC) [Mass/Vol] 33.5 g/dL Normal 29.9-35.2 [facility] Comment on above: Performed By: #### C BC #### [facility] [address] [place] [address] Dr. Brea Causey MCV (RBC) [Entitic vol] 88.1 fL Normal 80.0-94.0 [facility] Comment on above: Performed By: #### C BC #### [facility] [address] [place] [address] Dr. Brea Causey MONO # 1.5 103/ul Critically high 0.3-0.8 [facility] Comment on above: Performed By: #### C BC #### [facility] [address] [place] [address] Dr. Brea Causey Monocytes/100 WBC (Bld) 8.6 % Normal 1.7-12.0 [facility] Comment on above: Performed By: #### C BC #### [facility] [address] [place] [address] Dr. Brea Causey NEUT # 14.0 103/ul Critically high 1.4-6.[address] [facility] Comment on above: Performed By: #### C BC #### [facility] [address] [place] [address] Dr. Brea Causey Neutrophils/100 WBC (Bld) 82.6 % Critically high 43.0-75.0 [facility] Comment on above: Performed By: #### C BC #### [facility] [address] [place] [address] Dr. Brea Causey Platelet mean volume (Bld) [Entitic vol] 9.5 fL Normal 9.5-13.5 [facility] Comment on above: Performed By: #### C BC #### [facility] [address] [place] [address] Dr. Brea Causey PLT 303 103/ul Normal 150-450 [facility] Comment on above: Performed By: #### C BC #### [facility] [address] [place] [address] Dr. Brea Causey RBC 4.47 106/ul Critically low 4.70-6.10 [facility] Comment on above: Performed By: #### C BC #### [facility] [address] [place] [address] Dr. Brea Causey WBC 17.0 103/ul Critically high 4.0-11.0 [facility] Comment on above: Performed By: #### C BC #### [facility] [address] [place] [address] Dr. Brea Causey Covid-19 PCR ([facility])on SARS-CoV-2 (COVID-19) RNA ISI+probe Ql (Unsp spec) Not detected Normal NOT DETECTED [facility] Comment on above: Result Comment: When diagnostic testing is negative, the possibility of a false negative should be considered in the context of a patient's recent exposures and the presence of clinical signs and symptoms consistent with SARS-CoV-2. This test is not yet approved or cleared by the [place] FDA. When there are no FDA-approved or cleared tests available, and other criteria are met, FDA can make tests available under an emergency access mechanism called an Emergency Use Authorization (EUA). The EUA for this test is supported by the [place] of Health and Human Service's declaration that circumstances exist to justify the emergency use of in vitro diagnostics for the detection and/or diagnosis of the virus that causes COVID-19. This EUA will remain in effect for the duration of the COVID-19 declaration justifying emergency of IVDs, unless it is terminated or revoked by the FDA (after which the test may no longer be used). Performed By: #### U CLINT, CMP, LIPID, DBIL, PHOS, MG #### [facility] [address] [address] [address] Brea Causey ER URINE PROFILEon 2 Bilirubin Ql (U) Negative Normal NEGATIVE [facility] Comment on above: Performed By: #### U CLINT, CMP, LIPID, DBIL, PHOS, MG #### [facility] [address] [address] [address] Brea Causey Clarity (U) CLEAR Normal CLEAR [facility] Comment on above: Performed By: #### U CLINT, CMP, LIPID, DBIL, PHOS, MG #### [facility] [address] [address] [address] Brea Causey Color (U) YELLOW Normal YELLOW [facility] Comment on above: Performed By: #### U CLINT, CMP, LIPID, DBIL, PHOS, MG #### [facility] [address] [place] [address] Dr. Brea GORDON A micrscopic examination will be performed if indicated. Normal [facility] Comment on above: Performed By: #### U CLINT, CMP, LIPID, DBIL, PHOS, MG #### [facility] [address] [address] [address] Brea Causey Glucose Ql (U) Negative Normal NEGATIVE [facility] Comment on above: Performed By: #### U CLINT, CMP, LIPID, DBIL, PHOS, MG #### [facility] [address] [address] [address] Brea Causey Hemoglobin Ql (U) Negative Normal NEGATIVE [facility] Comment on above: Performed By: #### U CLINT, CMP, LIPID, DBIL, PHOS, MG #### [facility] [address] [address] [address] Brea Causey Ketones Ql (U) Negative Normal NEGATIVE [facility] Comment on above: Performed By: #### U CLINT, CMP, LIPID, DBIL, PHOS, MG #### [facility] [address] [address] [address] Brea Causey LEUKOCYTES Negative Normal NEGATIVE [facility] Comment on above: Performed By: #### U CLINT, CMP, LIPID, DBIL, PHOS, MG #### [facility] [address] [address] [address] Brea Causey Nitrite Ql (U) Negative Normal NEGATIVE [facility] Comment on above: Performed By: #### U CLINT, CMP, LIPID, DBIL, PHOS, MG #### [facility] [address] [address] [address] Brea Causey pH (U) 6.0 [pH] Normal 5-9 [facility] Comment on above: Performed By: #### U CLINT, CMP, LIPID, DBIL, PHOS, MG #### [facility] [address] [place] [address] Dr. Brea Causey SPEC GRAVITY <=1.005 Abnormal 1.005-<=1.025 [facility] Comment on above: Performed By: #### U CLINT, CMP, LIPID, DBIL, PHOS, MG #### [facility] [address] [address] [address] Brea Causey UA PROTEIN Negative Normal NEGATIVE/ TRACE [facility] Comment on above: Performed By: #### U CLINT, CMP, LIPID, DBIL, PHOS, MG #### [facility] [address] [address] [address] Brea Causey UR MICRO IND NOT INDICATED Normal [facility] Comment on above: Performed By: #### U CLINT, CMP, LIPID, DBIL, PHOS, MG #### [facility] [address] [address] [address] Brea Causey Urobilinogen Qn (U) 0.2 {Sabine'U}/dL Normal 0.2 - 1. 0 [facility] Comment on above: Performed By: #### U CLINT, CMP, LIPID, DBIL, PHOS, MG #### [facility] [address] [place] [address] Dr. Brea Causey GI PANEL (PCR)on 11-14-2021 Adenovirus F 40/41 Not detected Normal NOT DETECTED [facility] Comment on above: Performed By: #### U CLINT, CMP, LIPID, DBIL, PHOS, MG #### [facility] [address] [address] [address] Brea Causey Astrovirus Not detected Normal NOT DETECTED [facility] Comment on above: Performed By: #### U CLINT, CMP, LIPID, DBIL, PHOS, MG #### [facility] [address] [address] [address] Brea Causey C. Diff toxin A/B Not detected Normal NOT DETECTED [facility] Comment on above: Performed By: #### U CLINT, CMP, LIPID, DBIL, PHOS, MG #### [facility] [address] [address] [address] Brea Causey Campylobacter Not detected Normal NOT DETECTED The [facility] Comment on above: Performed By: #### U CLINT, CMP, LIPID, DBIL, PHOS, MG #### [facility] [address] [address] [address] Brea Causey Cryptosporidium Not detected Normal NOT DETECTED [facility] Comment on above: Performed By: #### U CLINT, CMP, LIPID, DBIL, PHOS, MG #### [facility] [address] [address] [address] Brea Causey Cyclos. Cayetanensis Not detected Normal NOT DETECTED [facility] Comment on above: Performed By: #### U CLINT, CMP, LIPID, DBIL, PHOS, MG #### [facility] [address] [address] [address] Brea Causey E. Coli O157 Not Applicable Normal Not Applicable [facility] Comment on above: Performed By: #### U CLINT, CMP, LIPID, DBIL, PHOS, MG #### [facility] [address] [address] [address] Brea Causey E. histolytica Not detected Normal NOT DETECTED [facility] Comment on above: Performed By: #### U CLINT, CMP, LIPID, DBIL, PHOS, MG #### [facility] [address] [address] [address] Brea Causey EAEC Not detected Normal NOT DETECTED [facility] Comment on above: Performed By: #### U CLINT, CMP, LIPID, DBIL, PHOS, MG #### [facility] [address] [address] [address] Brea Causey EIEC Not detected Normal NOT DETECTED [facility] Comment on above: Performed By: #### U CLINT, CMP, LIPID, DBIL, PHOS, MG #### [facility] [address] [address] [address] Brea Causey EPEC Not detected Normal NOT DETECTED [facility] Comment on above: Performed By: #### U CLITN, CMP, LIPID, DBIL, PHOS, MG #### [facility] [address] [place] [address] Dr. Brea Causey ETEC Not detected Normal NOT DETECTED [facility] Comment on above: Performed By: #### U CLINT, CMP, LIPID, DBIL, PHOS, MG #### [facility] [address] [place] [address] Dr. Brea Causey G. Lamblia Not detected Normal NOT DETECTED [facility] Comment on above: Performed By: #### U CLINT, CMP, LIPID, DBIL, PHOS, MG #### [facility] [address] [place] [address] Dr. Brea LEZAMA CONTROLS PASSED Normal [facility] Comment on above: Performed By: #### U CLINT, CMP, LIPID, DBIL, PHOS, MG #### [facility] [address] [place] [address] Dr. Brea DARDEN DAVID HEADER GI PANEL BACTERIA Normal [facility] Comment on above: Performed By: #### U CLINT, CMP, LIPID, DBIL, PHOS, MG #### [facility] [address] [place] [address] Dr. Brea PINTO ECOLI GI PANEL DIARRHEAGENIC E.COLI / SHIGELLA Normal [facility] Comment on above: Performed By: #### U CLINT, CMP, LIPID, DBIL, PHOS, MG #### [facility] [address] [place] [address] Dr. Brea PNITO INFO SEE BELOW Normal [facility] Comment on above: Result Comment: EAEC - Enteroaggregative E. Coli EPEC- Enteropathogenic E. Coli ETEC- Enterotoxigenic E. Coli lt/st STEC- Shigella-like toxin-producing E. Coli stx1/stx2 EIEC- Shigella/Enteroinvasive E. Coli Performed By: #### U CLINT, CMP, LIPID, DBIL, PHOS, MG #### [facility] [address] [address] [address] Brea Causey [facility] PARASITES GI PANEL PARASITES Normal [facility] Comment on above: Performed By: #### U CLINT, CMP, LIPID, DBIL, PHOS, MG #### [facility] [address] [address] [address] Brea Causey [facility] VIRUS GI PANEL VIRUSES Normal [facility] Comment on above: Performed By: #### U CLINT, CMP, LIPID, DBIL, PHOS, MG #### [facility] [address] [address] [address] Brea Causey Norovirus GI/GII Not detected Normal NOT DETECTED [facility] Comment on above: Performed By: #### U CLINT, CMP, LIPID, DBIL, PHOS, MG #### [facility] [address] [address] [address] Brea Causey P. Shigelloides Not detected Normal NOT DETECTED [facility] Comment on above: Performed By: #### U CLINT, CMP, LIPID, DBIL, PHOS, MG #### [facility] [address] [place] [address] Dr. Brea Causey Rotavirus A Not detected Normal NOT DETECTED [facility] Comment on above: Performed By: #### U CLINT, CMP, LIPID, DBIL, PHOS, MG #### [facility] [address] [address] [address] Brea Causey Salmonella Not detected Normal NOT DETECTED [facility] Comment on above: Performed By: #### U CLINT, CMP, LIPID, DBIL, PHOS, MG #### [facility] [address] [address] [address] Brea Causey Sapovirus Not detected Normal NOT DETECTED [facility] Comment on above: Performed By: #### U CLINT, CMP, LIPID, DBIL, PHOS, MG #### [facility] [address] [address] [address] Brea Causey STEC Not detected Normal NOT DETECTED [facility] Comment on above: Performed By: #### U CLINT, CMP, LIPID, DBIL, PHOS, MG #### [facility] [address] [address] [address] Brea Causey Vibrio Not detected Normal NOT DETECTED [facility] Comment on above: Performed By: #### U CLINT, CMP, LIPID, DBIL, PHOS, MG #### [facility] [address] [place] [address] Dr. Brea Causey Vibrio Cholera Not detected Normal NOT DETECTED [facility] Comment on above: Performed By: #### U CLINT, CMP, LIPID, DBIL, PHOS, MG #### [facility] [address] [place] [address] Dr. Brea Causey Y. Enterocolitica Not detected Normal NOT DETECTED [facility] Comment on above: Performed By: #### U CLINT, CMP, LIPID, DBIL, PHOS, MG #### [facility] [address] [place] [address] Dr. Brea Causey PROF 14(COMP METB)on 022 Albumin [Mass/Vol] 4.0 g/dL Normal 3.4-5.0 [facility] Comment on above: Performed By: #### C BC #### [facility] [address] [place] [address] Dr. Brea Causey Albumin/Globulin [Mass ratio] 1.3 {ratio} Normal [facility] Comment on above: Performed By: #### C BC #### [facility] [address] [address] [address] Brea Causey ALP [Catalytic activity/Vol] 142 U/L Critically high 46-116 [facility] Comment on above: Performed By: #### C BC #### [facility] [address] [address] [address] Brea Causey ALT [Catalytic activity/Vol] 39 U/L Normal 16-63 [facility] Comment on above: Performed By: #### C BC #### [facility] [address] [place] [address] Dr. Brea Causey Anion gap [Moles/Vol] 13.6 mmol/L Normal [facility] Comment on above: Performed By: #### C BC #### [facility] [address] [place] [address] Dr. Brea Causey AST [Catalytic activity/Vol] 23 U/L Normal 15-37 [facility] Comment on above: Performed By: #### C BC #### [facility] [address] [place] [address] Dr. Brea Causey Bilirubin [Mass/Vol] 0.4 mg/dL Normal 0.2-1.0 [facility] Comment on above: Performed By: #### C BC #### [facility] [address] [place] [address] Dr. Brea Causey Calcium [Mass/Vol] 8.4 mg/dL Critically low 8.5-10.1 [facility] Comment on above: Performed By: #### C BC #### [facility] [address] [place] [address] Dr. Brea Causey Chloride [Moles/Vol] 97 mmol/L Critically low 98-107 [facility] Comment on above: Performed By: #### C BC #### [facility] [address] [place] [address] Dr. Brea Causey CO2 [Moles/Vol] 26.1 mmol/L Normal 21.0-32.0 [facility] Comment on above: Performed By: #### C BC #### [facility] [address] [place] [address] Dr. Brea Causey Creatinine [Mass/Vol] 1.21 mg/dL Normal 0.70-1.30 [facility] Comment on above: Performed By: #### C BC #### [facility] [address] [place] [address] Dr. Brea Causey EGFR-AF CHINESE >60 Normal >=60 [facility] Comment on above: Performed By: #### C BC #### [facility] [address] [address] [address] Brea Causey EGFR-NON AF CHINESE 59 mL/min/1.73m2 Critically low >=60 [facility] Comment on above: Performed By: #### C BC #### [facility] [address] [address] [address] Brea Causey Globulin (S) [Mass/Vol] 3.2 g/dL Normal [facility] Comment on above: Performed By: #### C BC #### [facility] [address] [address] [address] Brea Causey Glucose [Mass/Vol] 227 mg/dL Critically high 74-106 [facility] Comment on above: Performed By: #### C BC #### [facility] [address] [address] [address] Brea Causey Potassium [Moles/Vol] 4.7 mmol/L Normal 3.5-5.1 [facility] Comment on above: Performed By: #### C BC #### [facility] [address] [address] [address] Brea Causey Protein [Mass/Vol] 7.2 g/dL Normal 6.4-8.2 [facility] Comment on above: Performed By: #### C BC #### [facility] [address] [address] [address] Brea Causey Sodium [Moles/Vol] 132 mmol/L Critically low 136-145 [facility] Comment on above: Performed By: #### C BC #### [facility] [address] [address] [address] Brea Causey Urea nitrogen [Mass/Vol] 12.0 mg/dL Normal 7.0-18.0 [facility] Comment on above: Performed By: #### C BC #### [facility] [address] [address] [address] Brea Causey Urea nitrogen/Creatinine [Mass ratio] 9.9 mg/mg Normal [facility] Comment on above: Performed By: #### C BC #### [facility] [address] [place], [place] [address] Dr. Brea Causey CBC W/DIFFon 10-31-2021 ABS IMM GRANS 0.1 10*3/uL Normal 0.0-0.2 The [facility] Comment on above: Performed By: #### 4 5506, 06171, 72345, 77397, 74230, 24443 #### [facility] [address] [facility] [place] [address], [facility] ABS NEUTROPHILS 5.9 10*3/uL Normal 1.6-7.6 The [facility] Comment on above: Performed By: #### 4 5506, 29832, 92569, 51723, 51130, 09147 #### [facility] [address] [facility] [place] [address], [place] Basophils (Bld) [#/Vol] 0.0 10*3/uL Normal 0.0-0.2 The [facility] Comment on above: Performed By: #### 4 5506, 37124, 68171, 19496, 16482, 97320 #### [facility] [address] [facility] [place] [address], [place] Basophils/100 WBC (Bld) 0.3 % Normal 0.0-1.0 The [facility] Comment on above: Performed By: #### 4 5506, 96484, 48724, 24168, 22953, 38896 #### [facility] [address] [facility] [place] [address], [place] Eosinophils (Bld) [#/Vol] 0.2 10*3/uL Normal 0.0-0.5 The [facility] Comment on above: Performed By: #### 4 5506, 64527, 39331, 56371, 92625, 63553 #### [facility] [address] [place] [address], [place] Eosinophils/100 WBC (Bld) 2.3 % Normal 0.0-6.0 The [facility] Comment on above: Performed By: #### 4 5506, 76157, 14337, 18422, 64504, 95682 #### [facility] [address] Erythrocyte distribution width (RBC) [Ratio] 13.4 % Normal 11.5-15.0 The [facility] Comment on above: Performed By: #### 4 5506, 94376, 50069, 82843, 12901, 56691 #### [facility] [address] Hematocrit (Bld) [Volume fraction] 36.1 % Low 39.0-50.0 The [facility] Comment on above: Performed By: #### 4 5506, 76758, 29640, 99850, 56052, 27963 #### [facility] [address] Hemoglobin (Bld) [Mass/Vol] 11.9 g/dL Low 13.0-17.0 The [facility] Comment on above: Performed By: #### 4 5506, 69319, 62723, 60531, 88801, 96725 #### [facility] [address] IMMATURE GRANS 0.7 % Normal 0.0-1.0 The [facility] Comment on above: Performed By: #### 4 5506, 64629, 81413, 70177, 32114, 27796 #### [facility] [address] [place] [address], [facility] Lymphocytes (Bld) [#/Vol] 0.9 10*3/uL Low 1.2-4.0 The [facility] Comment on above: Performed By: #### 4 5506, 46012, 66631, 70809, 71505, 13584 #### [facility] [address] Lymphocytes/100 WBC (Bld) 12.1 % Low 20.0-45.0 The [facility] Comment on above: Performed By: #### 4 5506, 33612, 53745, 12148, 77964, 69858 #### [facility] [address] [place] [place] [address], [facility] MCH (RBC) [Entitic mass] 29.3 pg Normal 27.0-33.0 The [facility] Comment on above: Performed By: #### 4 5506, 11729, 05793, 21049, 71547, 05408 #### [facility] [address] MCHC (RBC) [Mass/Vol] 33.0 g/dL Normal 32.0-35.0 The [facility] Comment on above: Performed By: #### 4 5506, 13380, 98455, 30389, 36472, 79239 #### [facility] [address] MCV (RBC) [Entitic vol] 88.9 fL Normal 82.0-98.0 The [facility] Comment on above: Performed By: #### 4 5506, 27028, 64648, 90741, 77512, 98977 #### [facility] [address] [place] [address], [facility] Monocytes (Bld) [#/Vol] 0.6 10*3/uL Normal 0.1-1.0 The [facility] Comment on above: Performed By: #### 4 5506, 97318, 89977, 59278, 67847, 07328 #### [facility] [address] [place] [address], [facility] MONOS 8.3 % Normal 5.0-12.0 The [facility] Comment on above: Performed By: #### 4 5506, 20535, 45460, 89813, 10020, 53882 #### [facility] [address] [facility] [place] [address], [facility] Neutrophils/100 WBC (Bld) 76.3 % High 40.0-72.0 The [facility] Comment on above: Performed By: #### 4 5506, 10130, 10279, 11719, 57201, 03423 #### [facility] [address] [facility] [place] [address], [facility] Nucleated RBC/100 WBC (Bld) [Ratio] 0 % Normal 0-0 The [facility] Comment on above: Performed By: #### 4 5506, 34506, 19657, 39670, 32276, 67583 #### [facility] [address] [facility] [place] [address], [facility] PLAT CNT 260 10*3/uL Normal 150-400 The [facility] Comment on above: Performed By: #### 4 5506, 61198, 92167, 76427, 29675, 77533 #### [facility] [address] [place] [place] [address], [facility] RBC (Bld) [#/Vol] 4.06 10*6/uL Low 4.20-5.70 The [facility] Comment on above: Performed By: #### 4 5506, 17417, 35329, 50447, 66930, 25325 #### [facility] [address] [place] [address], [facility] WBC (Bld) [#/Vol] 7.68 10*3/uL Normal 4.00-10.60 The [facility] Comment on above: Performed By: #### 4 5506, 09277, 62684, 41413, 83560, 69472 #### [facility] [address] [place] [address], [facility] COMP METABOLIC PANELon 10-31 Albumin [Mass/Vol] 4.4 g/dL Normal 3.5-5.7 The [facility] Comment on above: Performed By: #### 4 5506, 63957, 35351, 27066, 41160, 48157 #### [facility] [address] [place] [id number], [facility] ALKALINE PHOSPH 132 IU/L High 34-104 The [facility] Comment on above: Performed By: #### 4 5506, 17747, 84899, 06366, 63132, 11218 #### [facility] [address] [place] [address], [facility] ALT [Catalytic activity/Vol] 26 U/L Normal 7-52 The [facility] Comment on above: Performed By: #### 4 5506, 96557, 28196, 99663, 17709, 49563 #### [facility] [address] [place] [address], [facility] AST [Catalytic activity/Vol] 17 U/L Normal 13-39 The [facility] Comment on above: Performed By: #### 4 5506, 27118, 04491, 79805, 85127, 13638 #### [facility] [address] [place] [address], [place] Bilirubin [Mass/Vol] 0.4 mg/dL Normal 0.3-1.0 The [facility] Comment on above: Performed By: #### 4 5506, 79436, 16668, 46551, 87778, 94732 #### [facility] [address] [place] [address], [place] Calcium [Mass/Vol] 8.6 mg/dL Normal 8.6-10.3 The [facility] Comment on above: Performed By: #### 4 5506, 48235, 37143, 37371, 71585, 81886 #### [facility] [address] [place] [address], [place] Chloride [Moles/Vol] 97 mmol/L Low 98-107 The [facility] Comment on above: Performed By: #### 4 5506, 62650, 31849, 85282, 74763, 57850 #### [facility] [address] [place] [address], [place] CO2 [Moles/Vol] 26 mmol/L Normal 21-31 The [facility] Comment on above: Performed By: #### 4 5506, 85885, 81799, 27144, 44671, 00176 #### [facility] [address] [place] [address], [place] Creatinine [Mass/Vol] 1.04 mg/dL Normal 0.70-1.30 The [facility] Comment on above: Performed By: #### 4 5506, 52676, 80645, 80752, 20824, 05627 #### [facility] [address] [place] [address], [place] GFR/1.73 sq M.predicted among blacks MDRD (S/P/Bld) [Vol rate/Area] mL/min/{1.73_m2} Normal >60 The [facility] Comment on above: Performed By: #### 4 5506, 54291, 96440, 79612, 45488, 74008 #### [facility] [address] [place] [address], [place] GFR/1.73 sq M.predicted among non-blacks MDRD (S/P/Bld) [Vol rate/Area] mL/min/{1.73_m2} Normal >60 The [facility] Comment on above: Performed By: #### 4 5506, 89963, 82682, 10092, 12274, 12327 #### [facility] [address] [place] [address], [place] Glucose [Mass/Vol] 158 mg/dL High 70-100 The [facility] Comment on above: Performed By: #### 4 5506, 07550, 29716, 23149, 42081, 71284 #### [facility] [address] [place] [address], [place] Potassium [Moles/Vol] 4.4 mmol/L Normal 3.5-5.1 The [facility] Comment on above: Performed By: #### 4 5506, 12514, 21628, 81619, 18026, 18528 #### [facility] [address] [place] [address], [facility] Protein [Mass/Vol] 6.6 g/dL Normal 6.0-8.3 The [facility] Comment on above: Performed By: #### 4 5506, 45527, 74205, 70957, 26939, 76394 #### [facility] [address] [place] [address], [facility] Sodium [Moles/Vol] 131 mmol/L Low 136-145 The [facility] Comment on above: Performed By: #### 4 5506, 96979, 09714, 87511, 22484, 71173 #### [facility] [address] [place] [address], [facility] Urea nitrogen [Mass/Vol] 15 mg/dL Normal 7-25 The [facility] Comment on above: Performed By: #### 4 5506, 01779, 01443, 25055, 21749, 07509 #### [facility] [address] [place] [address], [facility] DIRECT BILIon 10-31-2021 Bilirubin.direct [Mass/Vol] 0.1 mg/dL Normal 0.0-0.2 The [facility] Comment on above: Performed By: #### 4 5506, 65854, 41629, 55046, 90904, 16733 #### [facility] [address] [place] [address], [facility] LIPID PROFILEon 10-31-2021 Cholesterol [Mass/Vol] 70 mg/dL Low 120-200 The [facility] Comment on above: Result Comment: CHOL ESTEROL REFERENCE RANGE: 20 YEARS AND OLDER CARDIOVASCULAR RISK Less than 200 mg/dl Low Risk 200 to 239 mg/dl Borderline Risk 240 mg/dl and greater High Risk Performed By: #### 4 5506, 97395, 77077, 28121, 44221, 70975 #### [facility] [address] [place] [address], [place] Cholesterol in HDL [Mass/Vol] 35 mg/dL Normal 23-92 The [facility] Comment on above: Result Comment: Slig ht variation in normal range could be due to gender and/or age. HDL CHOLESTEROL REFERENCE RANGE: 20 years and older Cardiovascular Risk > or =60 mg/dL Desirable 40 TO 59 mg/dL Low Risk <40 mg/dL High Risk Performed By: #### 4 5506, 55125, 63555, 33069, 60185, 76351 #### [facility] [address] [place] [address], [facility] Cholesterol in LDL [Mass/Vol] 20 mg/dL Normal 0-130 The [facility] Comment on above: Result Comment: LDL IS A CALCULATION LDL IS ONLY VALID IF THE TRIG IS LESS THAN 400. Performed By: #### 4 5506, 74209, 08434, 53976, 23190, 33139 #### [facility] [address] [place] [address], [place] Cholesterol.total/Cho lesterol in HDL [Mass ratio] 2.0 {ratio} Normal .0-4.5 The [facility] Comment on above: Performed By: #### 4 5506, 63119, 47068, 61727, 73595, 22867 #### [facility] [address] [place] [address], [place] NON-HDL CHOLESTEROL 35 mg/dL Normal The [facility] Comment on above: Performed By: #### 4 5506, 65936, 61443, 56063, 85981, 32830 #### [facility] [address] [place] [address], [place] Triglyceride [Mass/Vol] 73 mg/dL Normal 40-149 The [facility] Comment on above: Result Comment: TRIG LYCERIDE REFERENCE RANGE: 20 YEARS AND OLDER CARDIOVASCULAR RISK LESS THAN 150 mg/dl LOW RISK 150 TO 199 mg/dl BORDERLINE RISK 200 mg/dl AND GREATER HIGH RISK Performed By: #### 4 5506, 23259, 55047, 44266, 34268, 91879 #### [facility] [address] VLDL CHOL 15 mg/dL Normal 0-40 The [facility] Comment on above: Performed By: #### 4 5506, 09783, 75098, 00661, 31544, 14835 #### [facility] [address] MAGNESIUM BLOODon 10-31-2021 Magnesium [Mass/Vol] 1.1 mg/dL Critically low 1.9-2.7 The [facility] Comment on above: Performed By: #### 4 5506, 50396, 11952, 75428, 57881, 87287 #### [facility] 3000 [facility]. [address] PHOSPHORUS BLOODon 2 Phosphate [Mass/Vol] 3.0 mg/dL Normal 2.5-5.0 The [facility] Comment on above: Performed By: #### 4 5506, 57366, 22367, 75257, 62717, 84192 #### [facility] [address] PROSPERAon 10-31-2021 PROSPERA KIT Results to be mailed directly to physician's office by reference lab. Normal The [facility] Comment on above: Result Comment: Test performed by [id number] [place] [address] Specimen collected for transplant patient and sent to [facility] per Dr instructions. No charge. No result expected. For billing and tracking purposes only. Performed By: #### 4 5506, 77651, 61569, 47392, 47518, 04349 #### [facility] [address] RESULT Results to be mailed directly to physician's office by reference lab. Normal The [facility] Comment on above: Performed By: #### 4 5506, 90881, 91088, 65833, 57650, 60168 #### [facility] [address] TACROLIMUSon 10-31-2021 Tacrolimus (Bld) [Mass/Vol] 7.6 ng/mL Normal 5.0-20.0 The [facility] Comment on above: Result Comment: The [employer] Tacrolimus assay is a delayed one-step immunoassay for the quantitative determination of tacrolimus in human whole blood using the chemiluminescent microparticle immunoassay (CMIA) technology with flexible assay protocols, referred to as Chemiflex. Performed By: #### 4 5506, 20091, 46910, 59148, 44261, 89124 #### [facility] [address] URIC ACID BLOODon 10-31-2021 Urate [Mass/Vol] 7.8 mg/dL High 4.4-7.6 The [facility] Comment on above: Performed By: #### 4 5506, 19149, 78610, 67644, 42310, 81100 #### [facility] [address] NM PARATHYROID WITH SPECT AN D CTon 07-24-2021 NM PARATHYROID WITH SPECT AND CT [facility] Department of Radiology [address] [place] [id number] Patient Name: WM SUAREZ : 1950 Sex: M Age: Race: White Pt. Location: Patient Status: D Ordered Date: 06/26/2021 8:40:00 AM Completed Date: 07/24/2021 01:21 PM Requesting Provider: NAGA BOSCH Attending Provider: NAGA BOSCH Report Copy To: VERNANateJERICHO Signs & Symptoms: E21.3 Hyperparathyroidism, unspecified I10 History: Sammi NPC Req. per Mcaconstantine A/B for CPT 79209 *SLA Comments: , , , Ordering Provider - NAGA BOSCH MD , Exam: NM PARATHYROID WITH SPECT AND CT NM PARATHYROID WITH SPECT AND CT 07/24/2021 1:21 PM CLINICAL INDICATIONS: E21.3 Hyperparathyroidism, unspecified I10 TECHNOLOGIST COMMENTS: Hyperparathyroidism. 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 Patient injected with 24.9 mCi of Tc99m Sestamibi for imaging. QUESTION FOR THE RADIOLOGIST: , , , Ordering Provider - NAGA BOSCH MD , PROTOCOL:Following injection of 99mTc sestamibi and approximately 10 minute delay, anterior projection images of the neck and chest were obtained. After a two-hour delay, repeat anterior projection images of the neck were acquired. SPECT images of the neck and chest were obtained and reconstructed in three axes. Radiopharmaceutical Dose: TC-99M SESTAMIBI, 24.9 Millicuries, Intravenous COMPARISON: None FINDINGS: 15 minute images straight symmetric pharmaceutical accumulation in the thyroid gland. Delayed images demonstrate near complete tracer washout from the thyroid. The two-hour delayed images do not demonstrate any focal abnormal persistent uptake in the region of the parathyroid glands to suggest parathyroid adenoma. SPECT images obtained. No abnormal delayed activity present to suggest parathyroid adenoma There is physiological tracer uptake in the myocardium, liver, salivary glands, and thyroid gland. No evidence for mediastinal uptake to suggest mediastinal parathyroid adenoma. IMPRESSION: Normal parathyroid imaging study with SPECT. Electronically signed: Nan Earl. Transcribed by: [email or web address], User Resident: Electronically Signed by: NAN EARL @ 07/27/2021 12:13 PM Normal The [facility] Comment on above: Order Comment: , , = ========= , Ordering Provider - NAGA BOSCH MD , CBC W/DIFFon 06-22-2021 ABS IMM GRANS 0.1 10*3/uL Normal 0.0-0.2 The [facility] Comment on above: Performed By: #### 4 5506, 55481, 66360, 36332, 41668, 11733 #### [facility] [address] ABS NEUTROPHILS 4.7 10*3/uL Normal 1.6-7.6 The [facility] Comment on above: Performed By: #### 4 5506, 44374, 41700, 16917, 73300, 30485 #### [facility] 3000 [facility] [place] [address], [facility] Basophils (Bld) [#/Vol] 0.0 10*3/uL Normal 0.0-0.2 The [facility] Comment on above: Performed By: #### 4 5506, 76398, 87313, 04483, 76036, 61676 #### [facility] [address] [facility] [place] [address], [facility] Basophils/100 WBC (Bld) 0.6 % Normal 0.0-1.0 The [facility] Comment on above: Performed By: #### 4 5506, 60834, 57250, 33461, 43398, 79845 #### [facility] [address] [facility] [place] [address], [facility] Eosinophils (Bld) [#/Vol] 0.2 10*3/uL Normal 0.0-0.5 The [facility] Comment on above: Performed By: #### 4 5506, 79764, 52745, 62921, 09124, 50743 #### [facility] [address] Eosinophils/100 WBC (Bld) 2.5 % Normal 0.0-6.0 The [facility] Comment on above: Performed By: #### 4 5506, 91028, 69658, 71576, 89954, 65042 #### [facility] [address] Erythrocyte distribution width (RBC) [Ratio] 13.6 % Normal 11.5-15.0 The [facility] Comment on above: Performed By: #### 4 5506, 98214, 75371, 30241, 34032, 93557 #### [facility] [address] Hematocrit (Bld) [Volume fraction] 36.3 % Low 39.0-50.0 The [facility] Comment on above: Performed By: #### 4 5506, 20133, 16418, 60878, 95333, 52395 #### [facility] [address] Hemoglobin (Bld) [Mass/Vol] 11.7 g/dL Low 13.0-17.0 The [facility] Comment on above: Performed By: #### 4 5506, 68036, 88898, 88200, 16302, 46794 #### [facility] [address] IMMATURE GRANS 0.8 % Normal 0.0-1.0 The [facility] Comment on above: Performed By: #### 4 5506, 29484, 56772, 28579, 46800, 16261 #### [facility] [address] [place] [address], [facility] Lymphocytes (Bld) [#/Vol] 0.9 10*3/uL Low 1.2-4.0 The [facility] Comment on above: Performed By: #### 4 5506, 23383, 98336, 61875, 86962, 79035 #### [facility] [address] Lymphocytes/100 WBC (Bld) 13.6 % Low 20.0-45.0 The [facility] Comment on above: Performed By: #### 4 5506, 21093, 11469, 98097, 28732, 20469 #### [facility] 3000 [facility]. [address] MCH (RBC) [Entitic mass] 28.6 pg Normal 27.0-33.0 The [facility] Comment on above: Performed By: #### 4 5506, 83559, 97415, 07627, 88576, 50871 #### [facility] 3000 [facility]. [address] MCHC (RBC) [Mass/Vol] 32.2 g/dL Normal 32.0-35.0 The [facility] Comment on above: Performed By: #### 4 5506, 01656, 47462, 32704, 88344, 74287 #### [facility] [address] [facility] [place] [address], [facility] MCV (RBC) [Entitic vol] 88.8 fL Normal 82.0-98.0 The [facility] Comment on above: Performed By: #### 4 5506, 72221, 01553, 60694, 81400, 46089 #### [facility] [address] [place] [place] [address], [facility] Monocytes (Bld) [#/Vol] 0.6 10*3/uL Normal 0.1-1.0 The [facility] Comment on above: Performed By: #### 4 5506, 00463, 61534, 65170, 90753, 39964 #### [facility] [address] [place] [address], [facility] MONOS 9.6 % Normal 5.0-12.0 The [facility] Comment on above: Performed By: #### 4 5506, 38077, 19472, 72479, 32986, 58716 #### [facility] [address] [place] [address], [facility] Neutrophils/100 WBC (Bld) 72.9 % High 40.0-72.0 The [facility] Comment on above: Performed By: #### 4 5506, 30078, 90884, 32949, 11250, 80332 #### [facility] [address] [place] [id number], [facility] Nucleated RBC/100 WBC (Bld) [Ratio] 0 % Normal 0-0 The [facility] Comment on above: Performed By: #### 4 5506, 50678, 29270, 24349, 56804, 93228 #### [facility] [address] [place] [address], [facility] PLAT CNT 263 10*3/uL Normal 150-400 The [facility] Comment on above: Performed By: #### 4 5506, 56288, 10657, 46570, 41336, 55998 #### [facility] [address] [facility] [place] [address], [facility] RBC (Bld) [#/Vol] 4.09 10*6/uL Low 4.20-5.70 The [facility] Comment on above: Performed By: #### 4 5506, 88467, 60295, 70651, 30350, 79387 #### [facility] [address] [facility] [place] [address], [facility] WBC (Bld) [#/Vol] 6.45 10*3/uL Normal 4.00-10.60 The [facility] Comment on above: Performed By: #### 4 5506, 14512, 73778, 15726, 50488, 38113 #### [facility] [address] [place] [address], [facility] COMP METABOLIC PANELon 06-22 Albumin [Mass/Vol] 4.3 g/dL Normal 3.5-5.7 The [facility] Comment on above: Performed By: #### 4 5506, 21059, 66156, 45983, 77516, 88641 #### [facility] [address] [place] [address], [facility] ALKALINE PHOSPH 143 IU/L High 34-104 The [facility] Comment on above: Performed By: #### 4 5506, 84123, 08872, 63463, 16489, 95342 #### [facility] [address] [place] [address], [place] ALT [Catalytic activity/Vol] 18 U/L Normal 7-52 The [facility] Comment on above: Performed By: #### 4 5506, 20527, 82451, 36361, 12990, 22035 #### [facility] [address] [place] [address], [place] AST [Catalytic activity/Vol] 15 U/L Normal 13-39 The [facility] Comment on above: Performed By: #### 4 5506, 38684, 59596, 66909, 03428, 88015 #### [facility] [address] [place] [address], [place] Bilirubin [Mass/Vol] 0.3 mg/dL Normal 0.3-1.0 The [facility] Comment on above: Performed By: #### 4 5506, 37778, 75125, 38234, 33762, 35782 #### [facility] [address] [place] [address], [place] Calcium [Mass/Vol] 10.6 mg/dL High 8.6-10.3 The [facility] Comment on above: Performed By: #### 4 5506, 24117, 52716, 11423, 47756, 65247 #### [facility] [address] [place] [address], [place] Chloride [Moles/Vol] 102 mmol/L Normal 98-107 The [facility] Comment on above: Performed By: #### 4 5506, 02792, 69689, 39416, 99139, 93245 #### [facility] [address] [place] [address], [place] CO2 [Moles/Vol] 24 mmol/L Normal 21-31 The [facility] Comment on above: Performed By: #### 4 5506, 09776, 56467, 56574, 82466, 18563 #### [facility] [address] [place] [address], [place] Creatinine [Mass/Vol] 1.04 mg/dL Normal 0.70-1.30 The [facility] Comment on above: Performed By: #### 4 5506, 87677, 18367, 94164, 90062, 80276 #### [facility] [address] [place] [address], [place] GFR/1.73 sq M.predicted among blacks MDRD (S/P/Bld) [Vol rate/Area] mL/min/{1.73_m2} Normal >60 The [facility] Comment on above: Performed By: #### 4 5506, 08849, 91901, 07540, 47645, 15605 #### [facility] [address] [place] [address], [place] GFR/1.73 sq M.predicted among non-blacks MDRD (S/P/Bld) [Vol rate/Area] mL/min/{1.73_m2} Normal >60 The [facility] Comment on above: Performed By: #### 4 5506, 57480, 36154, 34895, 26121, 61993 #### [facility] [address] [place] [address], [place] Glucose [Mass/Vol] 167 mg/dL High 70-100 The [facility] Comment on above: Performed By: #### 4 5506, 94218, 57975, 91107, 61321, 01740 #### [facility] [address] [place] [address], [place] Potassium [Moles/Vol] 5.3 mmol/L High 3.5-5.1 The [facility] Comment on above: Performed By: #### 4 5506, 14805, 97623, 50800, 22960, 00491 #### [facility] [address] [place] [address], [facility] Protein [Mass/Vol] 6.5 g/dL Normal 6.0-8.3 The [facility] Comment on above: Performed By: #### 4 5506, 07553, 84145, 02514, 03308, 18156 #### [facility] [address] [place] [address], [facility] Sodium [Moles/Vol] 134 mmol/L Low 136-145 The [facility] Comment on above: Performed By: #### 4 5506, 17566, 88605, 04947, 30685, 57671 #### [facility] [address] [place] [address], [facility] Urea nitrogen [Mass/Vol] 11 mg/dL Normal 7-25 The [facility] Comment on above: Performed By: #### 4 5506, 35893, 51162, 60111, 69869, 58550 #### [facility] [address] [place] [address], [facility] DIRECT BILIon 06-22-2021 Bilirubin.direct [Mass/Vol] 0.1 mg/dL Normal 0.0-0.2 The [facility] Comment on above: Performed By: #### 4 5506, 80691, 05788, 48897, 88387, 34830 #### [facility] [address] [place] [id number], [facility] LIPID PROFILEon 06-22-2021 Cholesterol [Mass/Vol] 77 mg/dL Low 120-200 The [facility] Comment on above: Result Comment: CHOL ESTEROL REFERENCE RANGE: 20 YEARS AND OLDER CARDIOVASCULAR RISK Less than 200 mg/dl Low Risk 200 to 239 mg/dl Borderline Risk 240 mg/dl and greater High Risk Performed By: #### 4 5506, 40054, 83366, 27550, 43896, 92590 #### [facility] [address] [place] [address], [place] Cholesterol in HDL [Mass/Vol] 40 mg/dL Normal 23-92 The [facility] Comment on above: Result Comment: Slig ht variation in normal range could be due to gender and/or age. HDL CHOLESTEROL REFERENCE RANGE: 20 years and older Cardiovascular Risk > or =60 mg/dL Desirable 40 TO 59 mg/dL Low Risk <40 mg/dL High Risk Performed By: #### 4 5506, 90134, 46094, 58676, 94513, 45076 #### [facility] [address] [place] [address], [facility] Cholesterol in LDL [Mass/Vol] 24 mg/dL Normal 0-130 The [facility] Comment on above: Result Comment: LDL IS A CALCULATION LDL IS ONLY VALID IF THE TRIG IS LESS THAN 400. Performed By: #### 4 5506, 67829, 70122, 73275, 12377, 22952 #### [facility] [address] [place] [address], [place] Cholesterol.total/Cho lesterol in HDL [Mass ratio] 1.9 {ratio} Normal .0-4.5 The [facility] Comment on above: Performed By: #### 4 5506, 52885, 69861, 62448, 74347, 90024 #### [facility] [address] [place] [address], [place] NON-HDL CHOLESTEROL 37 mg/dL Normal The [facility] Comment on above: Performed By: #### 4 5506, 02916, 44543, 83376, 53121, 64166 #### [facility] [address] [place] [address], [place] Triglyceride [Mass/Vol] 63 mg/dL Normal 40-149 The [facility] Comment on above: Result Comment: TRIG LYCERIDE REFERENCE RANGE: 20 YEARS AND OLDER CARDIOVASCULAR RISK LESS THAN 150 mg/dl LOW RISK 150 TO 199 mg/dl BORDERLINE RISK 200 mg/dl AND GREATER HIGH RISK Performed By: #### 4 5506, 86310, 87511, 79457, 39470, 46243 #### [facility] [address] [place] [address], [facility] VLDL CHOL 13 mg/dL Normal 0-40 The [facility] Comment on above: Performed By: #### 4 5506, 26960, 70319, 70187, 47790, 62793 #### [facility] [address] [place] [address], [facility] MAGNESIUM BLOODon 06-22-2021 Magnesium [Mass/Vol] 1.4 mg/dL Low 1.9-2.7 The [facility] Comment on above: Performed By: #### 4 5506, 10502, 68505, 68057, 66114, 05211 #### [facility] [address] [facility] [place] [address], [facility] PHOSPHORUS BLOODon Phosphate [Mass/Vol] 2.5 mg/dL Normal 2.5-5.0 The [facility] Comment on above: Performed By: #### 4 5506, 14576, 76234, 36182, 91823, 04826 #### [facility] [address] [facility] [place] [address], [facility] PTH INTACTon 06-22-2021 PTH INTACT 155 pg/mL High 12-88 The [facility] Comment on above: Performed By: #### 4 5506, 54111, 55843, 04622, 58358, 54488 #### [facility] [address] [facility] [place] [address], [facility] TACROLIMUSon 06-22-2021 Tacrolimus (Bld) [Mass/Vol] 21.0 ng/mL High 5.0-20.0 The [facility] Comment on above: Result Comment: The [employer] Tacrolimus assay is a delayed one-step immunoassay for the quantitative determination of tacrolimus in human whole blood using the chemiluminescent microparticle immunoassay (CMIA) technology with flexible assay protocols, referred to as Chemiflex. Performed By: #### 4 5506, 67887, 00483, 52963, 29419, 77680 #### [facility] [address] URIC ACID BLOODon 06-22-2021 Urate [Mass/Vol] 7.9 mg/dL High 4.4-7.6 The [facility] Comment on above: Performed By: #### 4 5506, 09273, 24284, 65747, 82411, 14910 #### [facility] [address] CBC W/DIFFon 04-19-2021 ABS IMM GRANS 0.1 10*3/uL Normal 0.0-0.2 The [facility] Comment on above: Performed By: #### 4 5506, 09544, 59037, 92798, 00120, 97489 #### [facility] [address] ABS NEUTROPHILS 5.2 10*3/uL Normal 1.6-7.6 The [facility] Comment on above: Performed By: #### 4 5506, 09887, 50425, 23878, 48021, 84074 #### [facility] [address] Basophils (Bld) [#/Vol] 0.0 10*3/uL Normal 0.0-0.2 The [facility] Comment on above: Performed By: #### 4 5506, 83118, 85601, 73029, 05209, 01302 #### [facility] [address] Basophils/100 WBC (Bld) 0.4 % Normal 0.0-1.0 The [facility] Comment on above: Performed By: #### 4 5506, 17531, 92508, 35392, 60432, 88958 #### [facility] [address] Eosinophils (Bld) [#/Vol] 0.2 10*3/uL Normal 0.0-0.5 The [facility] Comment on above: Performed By: #### 4 5506, 67632, 70565, 53133, 78951, 65652 #### [facility] [address] [facility]. [address] Eosinophils/100 WBC (Bld) 2.9 % Normal 0.0-6.0 The [facility] Comment on above: Performed By: #### 4 5506, 14462, 72827, 51443, 57810, 56259 #### [facility] 3000 [facility]. [address] Erythrocyte distribution width (RBC) [Ratio] 13.3 % Normal 11.5-15.0 The [facility] Comment on above: Performed By: #### 4 5506, 69341, 07062, 16056, 52458, 48564 #### [facility] [address] [facility]. [address] Hematocrit (Bld) [Volume fraction] 37.1 % Low 39.0-50.0 The [facility] Comment on above: Performed By: #### 4 5506, 91195, 68787, 78967, 73070, 81125 #### [facility] [address] [facility]. [address] Hemoglobin (Bld) [Mass/Vol] 11.7 g/dL Low 13.0-17.0 The [facility] Comment on above: Performed By: #### 4 5506, 06474, 73852, 44681, 11938, 44420 #### [facility] [address] [facility] [place] [address], [facility] IMMATURE GRANS 0.9 % Normal 0.0-1.0 The [facility] Comment on above: Performed By: #### 4 5506, 59275, 68301, 20177, 93241, 17271 #### [facility] [address] [facility] [place] [address], [facility] Lymphocytes (Bld) [#/Vol] 0.9 10*3/uL Low 1.2-4.0 The [facility] Comment on above: Performed By: #### 4 5506, 24492, 19653, 04991, 71200, 48213 #### [facility] [address] [place] [address], [facility] Lymphocytes/100 WBC (Bld) 12.5 % Low 20.0-45.0 The [facility] Comment on above: Performed By: #### 4 5506, 44179, 39233, 41134, 03912, 64953 #### [facility] [address] [facility] [place] [address], [facility] MCH (RBC) [Entitic mass] 29.0 pg Normal 27.0-33.0 The [facility] Comment on above: Performed By: #### 4 5506, 08323, 40201, 18636, 13946, 32203 #### [facility] [address] [facility] [place] [address], [facility] MCHC (RBC) [Mass/Vol] 31.5 g/dL Low 32.0-35.0 The [facility] Comment on above: Performed By: #### 4 5506, 40988, 01364, 09032, 64248, 27688 #### [facility] [address] [place] [place] [address], [facility] MCV (RBC) [Entitic vol] 92.1 fL Normal 82.0-98.0 The [facility] Comment on above: Performed By: #### 4 5506, 90763, 69225, 08345, 24019, 71230 #### [facility] [address] [place] [address], [facility] Monocytes (Bld) [#/Vol] 0.6 10*3/uL Normal 0.1-1.0 The [facility] Comment on above: Performed By: #### 4 5506, 58106, 72555, 58944, 45132, 84694 #### [facility] [address] [place] [address], [facility] MONOS 8.6 % Normal 5.0-12.0 The [facility] Comment on above: Performed By: #### 4 5506, 01212, 81397, 68011, 31622, 68036 #### [facility] [address] [place] [address], [facility] Neutrophils/100 WBC (Bld) 74.7 % High 40.0-72.0 The [facility] Comment on above: Performed By: #### 4 5506, 06737, 35071, 72677, 93787, 56307 #### [facility] [address] [facility] [place] [address], [facility] Nucleated RBC/100 WBC (Bld) [Ratio] 0 % Normal 0-0 The [facility] Comment on above: Performed By: #### 4 5506, 32480, 65618, 36299, 78226, 25361 #### [facility] [address] [facility] [place] [address], [facility] PLAT CNT 290 10*3/uL Normal 150-400 The [facility] Comment on above: Performed By: #### 4 5506, 97201, 16142, 59890, 69196, 86264 #### [facility] [address] [facility] [place] [address], [facility] RBC (Bld) [#/Vol] 4.03 10*6/uL Low 4.20-5.70 The [facility] Comment on above: Performed By: #### 4 5506, 10941, 27355, 45502, 70876, 97781 #### [facility] [address] [place] [address], [place] WBC (Bld) [#/Vol] 6.96 10*3/uL Normal 4.00-10.60 The [facility] Comment on above: Performed By: #### 4 5506, 80530, 16119, 52779, 67866, 96694 #### [facility] [address] [place] [address], [facility] COMP METABOLIC PANELon 04-19 Albumin [Mass/Vol] 4.3 g/dL Normal 3.5-5.7 The [facility] Comment on above: Performed By: #### 4 5506, 83719, 67319, 43868, 69674, 41111 #### [facility] [address] [place] [address], [facility] ALKALINE PHOSPH 137 IU/L High 34-104 The [facility] Comment on above: Performed By: #### 4 5506, 70643, 78577, 22355, 79842, 86596 #### [facility] [address] [place] [address], [place] ALT [Catalytic activity/Vol] 17 U/L Normal 7-52 The [facility] Comment on above: Performed By: #### 4 5506, 50614, 32485, 49347, 31561, 08103 #### [facility] [address] [place] [address], [place] AST [Catalytic activity/Vol] 16 U/L Normal 13-39 The [facility] Comment on above: Performed By: #### 4 5506, 60880, 49750, 40467, 99244, 11053 #### [facility] [address] [place] [address], [place] Bilirubin [Mass/Vol] 0.4 mg/dL Normal 0.3-1.0 The [facility] Comment on above: Performed By: #### 4 5506, 31335, 59306, 58559, 58148, 22387 #### [facility] [address] [place] [address], [place] Calcium [Mass/Vol] 10.5 mg/dL High 8.6-10.3 The [facility] Comment on above: Performed By: #### 4 5506, 26003, 48873, 15792, 77301, 91382 #### [facility] [address] [place] [address], [place] Chloride [Moles/Vol] 99 mmol/L Normal 98-107 The [facility] Comment on above: Performed By: #### 4 5506, 82565, 37353, 53112, 47595, 56856 #### [facility] [address] [place] [address], [place] CO2 [Moles/Vol] 27 mmol/L Normal 21-31 The [facility] Comment on above: Performed By: #### 4 5506, 54389, 43483, 72978, 51706, 29950 #### [facility] [address] [place] [address], [place] Creatinine [Mass/Vol] 1.04 mg/dL Normal 0.70-1.30 The [facility] Comment on above: Performed By: #### 4 5506, 73211, 95077, 51412, 06393, 78012 #### [facility] [address] [place] [address], [place] GFR/1.73 sq M.predicted among blacks MDRD (S/P/Bld) [Vol rate/Area] mL/min/{1.73_m2} Normal >60 The [facility] Comment on above: Performed By: #### 4 5506, 53896, 92500, 31513, 34328, 07482 #### [facility] [address] [place] [address], [place] GFR/1.73 sq M.predicted among non-blacks MDRD (S/P/Bld) [Vol rate/Area] mL/min/{1.73_m2} Normal >60 The [facility] Comment on above: Performed By: #### 4 5506, 31614, 34603, 45322, 21220, 96311 #### [facility] [address] [place] [address], [place] Glucose [Mass/Vol] 139 mg/dL High 70-100 The [facility] Comment on above: Performed By: #### 4 5506, 38487, 60759, 07588, 12695, 54132 #### [facility] [address] [place] [address], [place] Potassium [Moles/Vol] 5.1 mmol/L Normal 3.5-5.1 The [facility] Comment on above: Performed By: #### 4 5506, 66220, 69347, 27291, 31598, 06042 #### [facility] [address] [place] [address], [place] Protein [Mass/Vol] 6.5 g/dL Normal 6.0-8.3 The [facility] Comment on above: Performed By: #### 4 5506, 85075, 28788, 44054, 90945, 40610 #### [facility] [address] [place] [address], [place] Sodium [Moles/Vol] 133 mmol/L Low 136-145 The [facility] Comment on above: Performed By: #### 4 5506, 10241, 26426, 73792, 25731, 15056 #### [facility] [address] [place] [address], [place] Urea nitrogen [Mass/Vol] 11 mg/dL Normal 7-25 The [facility] Comment on above: Performed By: #### 4 5506, 02577, 44797, 07844, 19090, 11711 #### [facility] [address] [place] [address], [place] DIRECT BILIon 04-19-2021 Bilirubin.direct [Mass/Vol] 0.1 mg/dL Normal 0.0-0.2 The [facility] Comment on above: Performed By: #### 4 5506, 47948, 39928, 74752, 27409, 56054 #### [facility] [address] [place] [address], [place] LIPID PROFILEon 04-19-2021 Cholesterol [Mass/Vol] 82 mg/dL Low 120-200 The [facility] Comment on above: Result Comment: CHOL ESTEROL REFERENCE RANGE: 20 YEARS AND OLDER CARDIOVASCULAR RISK Less than 200 mg/dl Low Risk 200 to 239 mg/dl Borderline Risk 240 mg/dl and greater High Risk Performed By: #### 4 5506, 18449, 23729, 23100, 27080, 89181 #### [facility] [address] [place] [address], [place] Cholesterol in HDL [Mass/Vol] 38 mg/dL Normal 23-92 The [facility] Comment on above: Result Comment: Slig ht variation in normal range could be due to gender and/or age. HDL CHOLESTEROL REFERENCE RANGE: 20 years and older Cardiovascular Risk > or =60 mg/dL Desirable 40 TO 59 mg/dL Low Risk <40 mg/dL High Risk Performed By: #### 4 5506, 84080, 68135, 14985, 21008, 22285 #### [facility] [address] [place] [address], [place] Cholesterol in LDL [Mass/Vol] 25 mg/dL Normal 0-130 The [facility] Comment on above: Result Comment: LDL IS A CALCULATION LDL IS ONLY VALID IF THE TRIG IS LESS THAN 400. Performed By: #### 4 5506, 75296, 51861, 15033, 50721, 74218 #### [facility] [address] [place] [address], [place] Cholesterol.total/Cho lesterol in HDL [Mass ratio] 2.2 {ratio} Normal .0-4.5 The [facility] Comment on above: Performed By: #### 4 5506, 15309, 40157, 74324, 75755, 87072 #### [facility] [address] [place] [address], [place] NON-HDL CHOLESTEROL 44 mg/dL Normal The [facility] Comment on above: Performed By: #### 4 5506, 20623, 69601, 45257, 28118, 31198 #### [facility] [address] [place] [address], [facility] Triglyceride [Mass/Vol] 93 mg/dL Normal 40-149 The [facility] Comment on above: Result Comment: TRIG LYCERIDE REFERENCE RANGE: 20 YEARS AND OLDER CARDIOVASCULAR RISK LESS THAN 150 mg/dl LOW RISK 150 TO 199 mg/dl BORDERLINE RISK 200 mg/dl AND GREATER HIGH RISK Performed By: #### 4 5506, 02593, 64478, 43923, 23692, 36763 #### [facility] [address] [place] [address], [facility] VLDL CHOL 19 mg/dL Normal 0-40 The [facility] Comment on above: Performed By: #### 4 5506, 57941, 96923, 12164, 68898, 55013 #### [facility] [address] [place] [address], [facility] MAGNESIUM BLOODon 04-19-2021 Magnesium [Mass/Vol] 1.8 mg/dL Low 1.9-2.7 The [facility] Comment on above: Performed By: #### 4 5506, 54764, 24854, 22760, 45259, 18558 #### [facility] [address] [place] [address], [facility] PHOSPHORUS BLOODon Phosphate [Mass/Vol] 3.0 mg/dL Normal 2.5-5.0 The [facility] Comment on above: Performed By: #### 4 5506, 21863, 66275, 61968, 41205, 71876 #### [facility] [address] [place] [address], [facility] PROSPERAon 04-19-2021 PROSPERA KIT Results to be mailed directly to physician's office by reference lab. Normal The [facility] Comment on above: Result Comment: Test performed by [id number] [place] [address] No result expected. For billing and tracking purposes only. Specimen collected for transplant patient and sent to requesting hospital per Dr instructions. No charge. Performed By: #### 4 5506, 11505, 86632, 06581, 66904, 70456 #### [facility] [address] [facility]. [address] RESULT Results to be mailed directly to physician's office by reference lab. Normal The [facility] Comment on above: Performed By: #### 4 5506, 70224, 84462, 24884, 88036, 00155 #### [facility] [address] TACROLIMUSon 04-19-2021 Tacrolimus (Bld) [Mass/Vol] 7.7 ng/mL Normal 5.0-20.0 The [facility] Comment on above: Result Comment: The [employer] Tacrolimus assay is a delayed one-step immunoassay for the quantitative determination of tacrolimus in human whole blood using the chemiluminescent microparticle immunoassay (CMIA) technology with flexible assay protocols, referred to as Chemiflex. Performed By: #### 4 5506, 77053, 08118, 96954, 07242, 27814 #### [facility] [address] [facility]. [address] URIC ACID BLOODon 04-19-2021 Urate [Mass/Vol] 7.9 mg/dL High 4.4-7.6 The [facility] Comment on above: Performed By: #### 4 5506, 10138, 45780, 56742, 36531, 43627 #### [facility] [address] [facility] [place] [address], [facility] CBC W/DIFFon 04-11-2021 ABS IMM GRANS 0.0 10*3/uL Normal 0.0-0.2 The [facility] Comment on above: Performed By: #### 4 5506, 91963, 58110, 84471, 83260, 10926 #### [facility] [address] [facility] [place] [address], [facility] ABS NEUTROPHILS 4.5 10*3/uL Normal 1.6-7.6 The [facility] Comment on above: Performed By: #### 4 5506, 29008, 74917, 46191, 61636, 66402 #### [facility] [address] [facility] [place] [address], [facility] Basophils (Bld) [#/Vol] 0.0 10*3/uL Normal 0.0-0.2 The [facility] Comment on above: Performed By: #### 4 5506, 86668, 63859, 01113, 41129, 28326 #### [facility] [address] [facility] [place] [place] [address], [facility] Basophils/100 WBC (Bld) 0.5 % Normal 0.0-1.0 The [facility] Comment on above: Performed By: #### 4 5506, 12097, 55303, 65590, 67812, 83721 #### [facility] [address] [place] [address], [facility] Eosinophils (Bld) [#/Vol] 0.2 10*3/uL Normal 0.0-0.5 The [facility] Comment on above: Performed By: #### 4 5506, 51995, 84550, 89090, 84079, 61135 #### [facility] [address] [place] [address], [facility] Eosinophils/100 WBC (Bld) 3.1 % Normal 0.0-6.0 The [facility] Comment on above: Performed By: #### 4 5506, 51062, 58276, 67703, 71460, 32204 #### [facility] [address] [place] [address], [facility] Erythrocyte distribution width (RBC) [Ratio] 13.4 % Normal 11.5-15.0 The [facility] Comment on above: Performed By: #### 4 5506, 81003, 81784, 80138, 21129, 01115 #### [facility] [address] [facility] [place] [address] Hematocrit (Bld) [Volume fraction] 35.5 % Low 39.0-50.0 The [facility] Comment on above: Performed By: #### 4 5506, 20532, 71392, 36733, 89023, 52699 #### [facility] [address] Hemoglobin (Bld) [Mass/Vol] 11.7 g/dL Low 13.0-17.0 The [facility] Comment on above: Performed By: #### 4 5506, 70474, 11684, 16503, 58158, 57518 #### [facility] 3000 [facility]. [address] IMMATURE GRANS 0.6 % Normal 0.0-1.0 The [facility] Comment on above: Performed By: #### 4 5506, 17169, 27450, 17947, 47193, 95862 #### [facility] [address] [facility]. [address] Lymphocytes (Bld) [#/Vol] 0.8 10*3/uL Low 1.2-4.0 The [facility] Comment on above: Performed By: #### 4 5506, 69210, 47795, 22920, 93494, 06930 #### [facility] [address] [facility]. [address] Lymphocytes/100 WBC (Bld) 12.9 % Low 20.0-45.0 The [facility] Comment on above: Performed By: #### 4 5506, 98703, 11614, 11109, 19295, 57716 #### [facility] [address] MCH (RBC) [Entitic mass] 29.2 pg Normal 27.0-33.0 The [facility] Comment on above: Performed By: #### 4 5506, 33829, 43938, 44922, 27679, 57014 #### [facility] [address] [place] [address], [facility] MCHC (RBC) [Mass/Vol] 33.0 g/dL Normal 32.0-35.0 The [facility] Comment on above: Performed By: #### 4 5506, 43545, 63557, 21086, 63073, 50995 #### [facility] [address] [place] [address], [facility] MCV (RBC) [Entitic vol] 88.5 fL Normal 82.0-98.0 The [facility] Comment on above: Performed By: #### 4 5506, 70577, 13671, 99304, 95876, 83520 #### [facility] 3000 [facility]. [address] Monocytes (Bld) [#/Vol] 0.6 10*3/uL Normal 0.1-1.0 The [facility] Comment on above: Performed By: #### 4 5506, 52281, 76828, 78549, 76325, 92201 #### [facility] [address] [facility] [address] MONOS 10.3 % Normal 5.0-12.0 The [facility] Comment on above: Performed By: #### 4 5506, 64411, 72214, 04425, 03327, 36503 #### [facility] [address] [place] [address], [facility] Neutrophils/100 WBC (Bld) 72.6 % High 40.0-72.0 The [facility] Comment on above: Performed By: #### 4 [id number], 26061, 87816, 78148, 85967, 46261 #### [facility] [address] [place] [address], [facility] Nucleated RBC/100 WBC (Bld) [Ratio] 0 % Normal 0-0 The [facility] Comment on above: Performed By: #### 4 [id number], [id number], 05204, 06243, 25821, 88233 #### [facility] [address] [place] [address], [facility] PLAT CNT 272 10*3/uL Normal 150-400 [facility] [facility] Comment on above: Performed By: #### 4 5506, 21133, 30112, 31895, 04655, 10310 #### [facility] [address] [place] [address], [facility] RBC (Bld) [#/Vol] 4.01 10*6/uL Low 4.20-5.70 The [facility] Comment on above: Performed By: #### 4 5506, 47526, 02977, 81797, 28823, 33029 #### [facility] [address] [facility] [place] [address], [facility] WBC (Bld) [#/Vol] 6.22 10*3/uL Normal 4.00-10.60 The [facility] Comment on above: Performed By: #### 4 5506, 38669, 87885, 03195, 93996, 98449 #### [facility] [address] [facility]. [address] COMP METABOLIC PANELon 04-11 Albumin [Mass/Vol] 4.3 g/dL Normal 3.5-5.7 The [facility] Comment on above: Performed By: #### 4 5506, 42736, 91310, 85225, 50953, 89646 #### [facility] [address] [place] [address], [facility] ALKALINE PHOSPH 115 IU/L High 34-104 The [facility] Comment on above: Performed By: #### 4 5506, 90125, 00208, 41059, 35211, 34017 #### [facility] [address] ALT [Catalytic activity/Vol] 16 U/L Normal 7-52 The [facility] Comment on above: Performed By: #### 4 5506, 34567, 72358, 39674, 95387, 55485 #### [facility] [address] [place] [address], [place] AST [Catalytic activity/Vol] 15 U/L Normal 13-39 The [facility] Comment on above: Performed By: #### 4 5506, 59736, 17169, 54083, 09178, 58343 #### [facility] [address] [place] [address], [place] Bilirubin [Mass/Vol] 0.6 mg/dL Normal 0.3-1.0 The [facility] Comment on above: Performed By: #### 4 5506, 60342, 15773, 90172, 93611, 67708 #### [facility] [address] [place] [address], [place] Calcium [Mass/Vol] 10.3 mg/dL Normal 8.6-10.3 The [facility] Comment on above: Performed By: #### 4 5506, 07302, 52040, 76353, 12532, 28984 #### [facility] [address] [place] [address], [place] Chloride [Moles/Vol] 97 mmol/L Low 98-107 The [facility] Comment on above: Performed By: #### 4 5506, 06846, 74757, 70471, 30404, 26766 #### [facility] [address] [place] [address], [place] CO2 [Moles/Vol] 26 mmol/L Normal 21-31 The [facility] Comment on above: Performed By: #### 4 5506, 15338, 13417, 31267, 29561, 40126 #### [facility] [address] [place] [address], [place] Creatinine [Mass/Vol] 0.93 mg/dL Normal 0.70-1.30 The [facility] Comment on above: Performed By: #### 4 5506, 89196, 19453, 39307, 05531, 43811 #### [facility] [address] [place] [address], [place] GFR/1.73 sq M.predicted among blacks MDRD (S/P/Bld) [Vol rate/Area] mL/min/{1.73_m2} Normal >60 The [facility] Comment on above: Performed By: #### 4 5506, 85470, 99217, 85471, 66145, 65242 #### [facility] [address] [place] [address], [place] GFR/1.73 sq M.predicted among non-blacks MDRD (S/P/Bld) [Vol rate/Area] mL/min/{1.73_m2} Normal >60 The [facility] Comment on above: Performed By: #### 4 5506, 79668, 66528, 00244, 54990, 45587 #### [facility] [address] [place] [address], [place] Glucose [Mass/Vol] 136 mg/dL High 70-100 The [facility] Comment on above: Performed By: #### 4 5506, 05085, 31136, 60579, 96487, 36222 #### [facility] [address] [place] [address], [place] Potassium [Moles/Vol] 5.2 mmol/L High 3.5-5.1 The [facility] Comment on above: Performed By: #### 4 5506, 74229, 20321, 24842, 38451, 88231 #### [facility] [address] [place] [address], [place] Protein [Mass/Vol] 6.7 g/dL Normal 6.0-8.3 The [facility] Comment on above: Performed By: #### 4 5506, 95809, 10597, 47979, 64239, 11333 #### [facility] [address] [place] [address], [facility] Sodium [Moles/Vol] 129 mmol/L Low 136-145 The [facility] Comment on above: Performed By: #### 4 5506, 28235, 39567, 32420, 58490, 71164 #### [facility] [address] [place] [address], [facility] Urea nitrogen [Mass/Vol] 10 mg/dL Normal 7-25 The [facility] Comment on above: Performed By: #### 4 5506, 03623, 96636, 33118, 40006, 05712 #### [facility] [address] [place] [address], [facility] DIRECT BILIon 04-11-2021 Bilirubin.direct [Mass/Vol] 0.2 mg/dL Normal 0.0-0.2 The [facility] Comment on above: Performed By: #### 4 5506, 54593, 58122, 21325, 63058, 17124 #### [facility] [address] [place] [address], [facility] LIPID PROFILEon 04-11-2021 Cholesterol [Mass/Vol] 84 mg/dL Low 120-200 The [facility] Comment on above: Result Comment: CHOL ESTEROL REFERENCE RANGE: 20 YEARS AND OLDER CARDIOVASCULAR RISK Less than 200 mg/dl Low Risk 200 to 239 mg/dl Borderline Risk 240 mg/dl and greater High Risk Performed By: #### 4 5506, 23715, 35285, 18770, 74941, 06097 #### [facility] [address] [place] [address], [facility] Cholesterol in HDL [Mass/Vol] 41 mg/dL Normal 23-92 The [facility] Comment on above: Result Comment: Slig ht variation in normal range could be due to gender and/or age. HDL CHOLESTEROL REFERENCE RANGE: 20 years and older Cardiovascular Risk > or =60 mg/dL Desirable 40 TO 59 mg/dL Low Risk <40 mg/dL High Risk Performed By: #### 4 5506, 09470, 17272, 29372, 80994, 33370 #### [facility] [address] [place] [address], [facility] Cholesterol in LDL [Mass/Vol] 34 mg/dL Normal 0-130 The [facility] Comment on above: Result Comment: LDL IS A CALCULATION LDL IS ONLY VALID IF THE TRIG IS LESS THAN 400. Performed By: #### 4 5506, 95597, 22502, 70883, 42646, 36216 #### [facility] [address] [place] [address], [facility] Cholesterol.total/Cho lesterol in HDL [Mass ratio] 2.0 {ratio} Normal .0-4.5 The [facility] Comment on above: Performed By: #### 4 5506, 81282, 18802, 29786, 58141, 27082 #### [facility] [address] [place] [address], [facility] NON-HDL CHOLESTEROL 43 mg/dL Normal The [facility] Comment on above: Performed By: #### 4 5506, 44356, 04772, 06876, 83002, 54771 #### [facility] [address] [place] [address], [facility] Triglyceride [Mass/Vol] 47 mg/dL Normal 40-149 The [facility] Comment on above: Result Comment: TRIG LYCERIDE REFERENCE RANGE: 20 YEARS AND OLDER CARDIOVASCULAR RISK LESS THAN 150 mg/dl LOW RISK 150 TO 199 mg/dl BORDERLINE RISK 200 mg/dl AND GREATER HIGH RISK Performed By: #### 4 5506, 95704, 73505, 43896, 21063, 87149 #### [facility] [address] [place] [address], [facility] VLDL CHOL 9 mg/dL Normal 0-40 The [facility] Comment on above: Performed By: #### 4 5506, 23197, 55047, 24276, 14046, 37147 #### [facility] [address] [place] [address], [facility] MAGNESIUM BLOODon 04-11-2021 Magnesium [Mass/Vol] 1.3 mg/dL Low 1.9-2.7 The [facility] Comment on above: Performed By: #### 4 5506, 69889, 48126, 67495, 34604, 90239 #### [facility] [address] [place] [address], [facility] PHOSPHORUS BLOODon Phosphate [Mass/Vol] 2.6 mg/dL Normal 2.5-5.0 The [facility] Comment on above: Performed By: #### 4 5506, 23230, 55790, 17032, 70162, 52753 #### [facility] [address] [facility]. [address] TACROLIMUSon 04-11-2021 Tacrolimus (Bld) [Mass/Vol] 8.3 ng/mL Normal 5.0-20.0 The [facility] Comment on above: Result Comment: The [employer] Tacrolimus assay is a delayed one-step immunoassay for the quantitative determination of tacrolimus in human whole blood using the chemiluminescent microparticle immunoassay (CMIA) technology with flexible assay protocols, referred to as Chemiflex. Performed By: #### 4 5506, 16653, 85061, 91679, 46289, 34256 #### [facility] [address] [facility] [place] [address], [facility] URIC ACID BLOODon 04-11-2021 Urate [Mass/Vol] 8.4 mg/dL High 4.4-7.6 The [facility] Comment on above: Performed By: #### 4 5506, 23918, 05978, 03335, 44160, 97058 #### [facility] [address] [facility]. [address] BK VIRUS QUANTITATION FOR PL ASMAon 02-16-2021 BKV Plasma Quantitation by PCR Not detected Normal The [facility] Comment on above: Result Comment: Meth od: BK virus was measured by quantitative polymerase chain reaction using a fluorescent hydrolysis probe targeting the polyomavirus BK ESTIMATOR JEWELRY-1 gene. The lower limit of quantitation of the assay is 500 copies of BK genome per milliliter of plasma or urine, and any detectable BK DNA below that level is reported as: Detected, <500 copies/ml. Serial BK virus measurement can be used to monitor disease activity. (Reference: Katina hernandez. J CLIN MICRO 2004; 42:4109-2716). This test was developed and its performance characteristics determined by the [facility]. It has not been approved by the [place] Food and Drug Administration. However, such approval is not required for clinical implementation, and test results have been shown to be clinically useful. This laboratory is CAP accredited and CLIA certified to perform high complexity testing. Performed By: #### 4 5506, 78170, 33382, 36917, 30154, 47225 #### [facility] [address] BKV Plasma Quantitation Log by PCR Not detected Normal The [facility] Comment on above: Performed By: #### 4 5506, 49042, 49956, 44236, 79265, 98111 #### [facility] [address] CBC W/DIFFon 02-16-2021 ABS IMM GRANS 0.1 10*3/uL Normal 0.0-0.2 The [facility] Comment on above: Performed By: #### 4 5506, 47949, 85704, 27915, 74555, 11197 #### [facility] [address] ABS NEUTROPHILS 5.8 10*3/uL Normal 1.6-7.6 The [facility] Comment on above: Performed By: #### 4 5506, 52483, 89196, 51898, 01665, 61820 #### [facility] [address] Basophils (Bld) [#/Vol] 0.0 10*3/uL Normal 0.0-0.2 The [facility] Comment on above: Performed By: #### 4 5506, 12981, 04374, 41480, 37554, 78946 #### [facility] [address] [place] [address], [facility] Basophils/100 WBC (Bld) 0.4 % Normal 0.0-1.0 The [facility] Comment on above: Performed By: #### 4 5506, 32532, 66528, 32445, 33751, 72317 #### [facility] [address] [place] [address], [facility] Eosinophils (Bld) [#/Vol] 0.3 10*3/uL Normal 0.0-0.5 The [facility] Comment on above: Performed By: #### 4 5506, 64565, 20344, 66596, 95214, 67706 #### [facility] [address] [place] [address], [facility] Eosinophils/100 WBC (Bld) 3.5 % Normal 0.0-6.0 The [facility] Comment on above: Performed By: #### 4 5506, 91035, 83671, 19012, 88798, 36527 #### [facility] [address] [place] [address], [facility] Erythrocyte distribution width (RBC) [Ratio] 13.6 % Normal 11.5-15.0 The [facility] Comment on above: Performed By: #### 4 5506, 08412, 17637, 87718, 41897, 16740 #### [facility] [address] [place] [id number], [facility] Hematocrit (Bld) [Volume fraction] 34.1 % Low 39.0-50.0 The [facility] Comment on above: Performed By: #### 4 5506, 21544, 62454, 19706, 23282, 36368 #### [facility] [address] [place] [address], [facility] Hemoglobin (Bld) [Mass/Vol] 11.6 g/dL Low 13.0-17.0 The [facility] Comment on above: Performed By: #### 4 5506, 39307, 43619, 03892, 73111, 89803 #### [facility] [address] [facility]. [address] IMMATURE GRANS 0.8 % Normal 0.0-1.0 The [facility] Comment on above: Performed By: #### 4 5506, 12499, 37847, 02393, 12052, 42706 #### [facility] [address] Lymphocytes (Bld) [#/Vol] 0.7 10*3/uL Low 1.2-4.0 The [facility] Comment on above: Performed By: #### 4 5506, 43942, 55053, 38223, 89753, 38616 #### [facility] [address] Lymphocytes/100 WBC (Bld) 9.2 % Low 20.0-45.0 The [facility] Comment on above: Performed By: #### 4 5506, 54952, 09744, 12789, 93088, 87403 #### [facility] [address] [facility]. [address] MCH (RBC) [Entitic mass] 29.5 pg Normal 27.0-33.0 The [facility] Comment on above: Performed By: #### 4 5506, 41987, 96264, 64453, 85963, 57761 #### [facility] [address] [place] [address], [facility] MCHC (RBC) [Mass/Vol] 34.0 g/dL Normal 32.0-35.0 The [facility] Comment on above: Performed By: #### 4 5506, 72827, 57557, 41431, 69208, 80047 #### [facility] [address] [place] [address], [facility] MCV (RBC) [Entitic vol] 86.8 fL Normal 82.0-98.0 The [facility] Comment on above: Performed By: #### 4 5506, 37370, 41003, 00744, 05752, 30046 #### [facility] [address] [place] [address], [facility] Monocytes (Bld) [#/Vol] 0.8 10*3/uL Normal 0.1-1.0 The [facility] Comment on above: Performed By: #### 4 5506, 52051, 52038, 30073, 24439, 26333 #### [facility] [address] MONOS 10.3 % Normal 5.0-12.0 The [facility] Comment on above: Performed By: #### 4 5506, 97388, 12178, 12636, 00824, 71211 #### [facility] 3000 [facility]. [address] Neutrophils/100 WBC (Bld) 75.8 % High 40.0-72.0 The [facility] Comment on above: Performed By: #### 4 5506, 77207, 76179, 30542, 23640, 49750 #### [facility] [address] [facility]. [address] Nucleated RBC/100 WBC (Bld) [Ratio] 0 % Normal 0-0 The [facility] Comment on above: Performed By: #### 4 5506, 11474, 35506, 59780, 16963, 03531 #### [facility] [address] [place] [address], [facility] PLAT CNT 256 10*3/uL Normal 150-400 The [facility] Comment on above: Performed By: #### 4 5506, 03065, 64333, 15442, 22130, 35748 #### [facility] [address] [place] [address], [facility] RBC (Bld) [#/Vol] 3.93 10*6/uL Low 4.20-5.70 The [facility] Comment on above: Performed By: #### 4 5506, 80868, 38832, 03807, 43753, 37951 #### [facility] [address] [place] [address], [facility] WBC (Bld) [#/Vol] 7.65 10*3/uL Normal 4.00-10.60 The [facility] Comment on above: Performed By: #### 4 5506, 15904, 65412, 48703, 84761, 10173 #### [facility] [address] [place] [address], [facility] COMP METABOLIC PANELon 02-16 Albumin [Mass/Vol] 4.6 g/dL Normal 3.5-5.7 The [facility] Comment on above: Performed By: #### 0 0121, 62264, 37633, 39584, 83441, 04077, 12177, 32377 #### [facility] [address] [place] [address], [facility] ALKALINE PHOSPH 136 IU/L High 34-104 The [facility] Comment on above: Performed By: #### 0 0121, 41044, 30561, 08434, 47994, 99980, 86530, 30005 #### [facility] [address] [place] [address], [facility] ALT [Catalytic activity/Vol] 22 U/L Normal 7-52 The [facility] Comment on above: Performed By: #### 0 0121, 02680, 74283, 97584, 27327, 88230, 51495, 23027 #### [facility] [address] [place] [id number], [facility] AST [Catalytic activity/Vol] 18 U/L Normal 13-39 The [facility] Comment on above: Performed By: #### 0 0121, 22863, 40092, 43691, 88890, 61990, 23570, 05158 #### [facility] [address] [place] [address], [facility] Bilirubin [Mass/Vol] 0.5 mg/dL Normal 0.3-1.0 The [facility] Comment on above: Performed By: #### 0 0121, 62316, 33840, 31248, 17331, 78984, 33448, 82801 #### [facility] [address] [place] [address], [place] Calcium [Mass/Vol] 10.5 mg/dL High 8.6-10.3 The [facility] Comment on above: Performed By: #### 0 0121, 34191, 53224, 43129, 88809, 31874, 60876, 69569 #### [facility] [address] [place] [address], [place] Chloride [Moles/Vol] 94 mmol/L Low 98-107 The [facility] Comment on above: Performed By: #### 0 0121, 91086, 65842, 57612, 36136, 19833, 49730, 59567 #### [facility] [address] [place] [address], [place] CO2 [Moles/Vol] 28 mmol/L Normal 21-31 The [facility] Comment on above: Performed By: #### 0 0121, 76798, 27507, 83052, 36486, 28722, 18065, 08525 #### [facility] [address] [place] [address], [place] Creatinine [Mass/Vol] 0.93 mg/dL Normal 0.70-1.30 The [facility] Comment on above: Performed By: #### 0 0121, 65032, 74068, 17628, 28429, 46644, 08718, 71682 #### [facility] [address] [place] [address], [place] GFR/1.73 sq M.predicted among blacks MDRD (S/P/Bld) [Vol rate/Area] mL/min/{1.73_m2} Normal >60 The [facility] Comment on above: Performed By: #### 0 0121, 09135, 34815, 52611, 66586, 05784, 13871, 48612 #### [facility] [address] [place] [address], [place] GFR/1.73 sq M.predicted among non-blacks MDRD (S/P/Bld) [Vol rate/Area] mL/min/{1.73_m2} Normal >60 The [facility] Comment on above: Performed By: #### 0 0121, 32132, 20350, 36372, 87442, 99462, 03201, 93883 #### [facility] [address] [place] [address], [place] Glucose [Mass/Vol] 147 mg/dL High 70-100 The [facility] Comment on above: Performed By: #### 0 0121, 71558, 69962, 92125, 50769, 47338, 18180, 74121 #### [facility] [address] [place] [address], [place] Potassium [Moles/Vol] 4.6 mmol/L Normal 3.5-5.1 The [facility] Comment on above: Performed By: #### 0 0121, 67057, 31632, 65216, 40737, 89606, 59348, 88525 #### [facility] [address] [place] [address], [place] Protein [Mass/Vol] 7.2 g/dL Normal 6.0-8.3 The [facility] Comment on above: Performed By: #### 0 0121, 07949, 63971, 22407, 26612, 87015, 26384, 42640 #### [facility] [address] [place] [address], [place] Sodium [Moles/Vol] 129 mmol/L Low 136-145 The [facility] Comment on above: Performed By: #### 0 0121, 81763, 74773, 41769, 77065, 02447, 78212, 86129 #### [facility] [address] [place] [address], [facility] Urea nitrogen [Mass/Vol] 15 mg/dL Normal 7-25 The [facility] Comment on above: Performed By: #### 0 0121, 07847, 63554, 77904, 20516, 92938, 62436, 15997 #### [facility] [address] [place] [address], [facility] DIRECT BILIon 02-16-2021 Bilirubin.direct [Mass/Vol] 0.2 mg/dL Normal 0.0-0.2 The [facility] Comment on above: Performed By: #### 4 5506, 52337, 76340, 48997, 26087, 92789 #### [facility] [address] [place] [address], [facility] HEMOGLOBIN A1Con 02-16-2021 Glucose [Moles/Vol] 154 mmol/L Normal The [facility] Comment on above: Performed By: #### 4 5506, 61059, 90624, 16515, 60124, 00517 #### [facility] [address] [place] [address], [facility] HbA1c (Bld) [Mass fraction] 7.0 % High 4.0-6.0 The [facility] Comment on above: Performed By: #### 4 5506, 15301, 79697, 36348, 24997, 07659 #### [facility] [address] [place] [address], [facility] LIPID PROFILEon 02-16-2021 Cholesterol [Mass/Vol] 78 mg/dL Low 120-200 The [facility] Comment on above: Result Comment: CHOL ESTEROL REFERENCE RANGE: 20 YEARS AND OLDER CARDIOVASCULAR RISK Less than 200 mg/dl Low Risk 200 to 239 mg/dl Borderline Risk 240 mg/dl and greater High Risk Performed By: #### 0 0121, 83677, 74473, 06715, 97067, 61370, 66322, 61786 #### [facility] [address] [place] [address], [place] Cholesterol in HDL [Mass/Vol] 41 mg/dL Normal 23-92 The [facility] Comment on above: Result Comment: Slig ht variation in normal range could be due to gender and/or age. HDL CHOLESTEROL REFERENCE RANGE: 20 years and older Cardiovascular Risk > or =60 mg/dL Desirable 40 TO 59 mg/dL Low Risk <40 mg/dL High Risk Performed By: #### 0 0121, 05860, 04274, 95287, 95883, 96930, 18293, 77621 #### [facility] [address] [place] [address], [facility] Cholesterol in LDL [Mass/Vol] 28 mg/dL Normal 0-130 The [facility] Comment on above: Result Comment: LDL IS A CALCULATION LDL IS ONLY VALID IF THE TRIG IS LESS THAN 400. Performed By: #### 0 0121, 48890, 42424, 37118, 47112, 94464, 03926, 93552 #### [facility] [address] [place] [address], [place] Cholesterol.total/Cho lesterol in HDL [Mass ratio] 1.9 {ratio} Normal .0-4.5 The [facility] Comment on above: Performed By: #### 0 0121, 67107, 13911, 88966, 18043, 21351, 28926, 67969 #### [facility] [address] [place] [address], [place] NON-HDL CHOLESTEROL 37 mg/dL Normal The [facility] Comment on above: Performed By: #### 0 0121, 04903, 70850, 00930, 80410, 14606, 74701, 24388 #### [facility] [address] [place] [address], [place] Triglyceride [Mass/Vol] 44 mg/dL Normal 40-149 The [facility] Comment on above: Result Comment: TRIG LYCERIDE REFERENCE RANGE: 20 YEARS AND OLDER CARDIOVASCULAR RISK LESS THAN 150 mg/dl LOW RISK 150 TO 199 mg/dl BORDERLINE RISK 200 mg/dl AND GREATER HIGH RISK Performed By: #### 0 0121, 29985, 06809, 66797, 26735, 11029, 77503, 68355 #### [facility] [address] [place] [address], [facility] VLDL CHOL 9 mg/dL Normal 0-40 The [facility] Comment on above: Performed By: #### 0 0121, 93496, 13483, 04457, 58051, 22894, 87520, 23733 #### [facility] [address] [place] [address], [facility] MAGNESIUM BLOODon 02-16-2021 Magnesium [Mass/Vol] 1.5 mg/dL Low 1.9-2.7 The [facility] Comment on above: Performed By: #### 4 5506, 80171, 87786, 00423, 02175, 37283 #### [facility] [address] [place] [address], [facility] PHOSPHORUS BLOODon Phosphate [Mass/Vol] 2.4 mg/dL Low 2.5-5.0 The [facility] Comment on above: Performed By: #### 0 0121, 13582, 07808, 68383, 10860, 89539, 62340, 43417 #### [facility] [address] [place] [address], [facility] PROSPERAon 02-16-2021 PROSPERA KIT Results to be mailed directly to physician's office by reference lab. Normal The [facility] Comment on above: Result Comment: Test performed by [id number] [place] [id number] No result expected. For billing and tracking purposes only. Specimen collected for transplant patient and sent to requesting hospital per Dr instructions. No charge. Performed By: #### 4 5506, 93578, 38506, 87299, 52103, 58243 #### [facility] [address] [place] [address], [facility] RESULT Results to be mailed directly to physician's office by reference lab. Normal [facility] Comment on above: Performed By: #### 4 5506, 80741, 59150, 12560, 28782, 06747 #### [facility] [address] [place] [address], [facility] PTH INTACTon 02-16-2021 PTH INTACT 123 pg/mL High 12-88 The [facility] Comment on above: Performed By: #### 4 5506, 23496, 35616, 18783, 91139, 82822 #### [facility] [address] [facility] [place] [address], [facility] SINGLE ANTIGEN CLASS 1on METHOD Class I Single Antigen Normal The [facility] Comment on above: Order Comment: Some of the reagents used for clinical histocompatibility testing havebeen approved by the FDA for research only. Through our certificationby CLIA to perform high complexity testing and through our stringentquality control program, these reagents have been rigorously tested andvalidated for clinical use. Typing performed may include components ofSSOP and/or SSP testing in order to obtain a valid HLA typing. Otherrare HLA alleles may be possible, but not probable, due to frequency. Performed By: #### 4 5506, 42800, 38817, 78574, 56758, 22011 #### [facility] [address] [facility] [place] [address], [facility] SINGLE ANTIGEN CLASS 2on COMMENTS Normal The [facility] Comment on above: Order Comment: Some of the reagents used for clinical histocompatibility testing havebeen approved by the FDA for research only. Through our certificationby CLIA to perform high complexity testing and through our stringentquality control program, these reagents have been rigorously tested andvalidated for clinical use. Typing performed may include components ofSSOP and/or SSP testing in order to obtain a valid HLA typing. Otherrare HLA alleles may be possible, but not probable, due to frequency. Result Comment: Pote ntial specificites added to the watch list. Class II Antigen Microbeads Performed By: #### 4 5506, 84319, 68481, 47487, 92080, 99775 #### [facility] [address] Result Comment: No C lass I donor specific antibody identified Class I Antigen Microbeads METHOD Class II Single Antigen Normal The [facility] Comment on above: Order Comment: Some of the reagents used for clinical histocompatibility testing havebeen approved by the FDA for research only. Through our certificationby CLIA to perform high complexity testing and through our stringentquality control program, these reagents have been rigorously tested andvalidated for clinical use. Typing performed may include components ofSSOP and/or SSP testing in order to obtain a valid HLA typing. Otherrare HLA alleles may be possible, but not probable, due to frequency. Performed By: #### 4 5506, 80616, 68326, 78475, 93465, 24095 #### [facility] [address] [facility]. [address] SIGNED BY Normal The [facility] Comment on above: Order Comment: Some of the reagents used for clinical histocompatibility testing havebeen approved by the FDA for research only. Through our certificationby CLIA to perform high complexity testing and through our stringentquality control program, these reagents have been rigorously tested andvalidated for clinical use. Typing performed may include components ofSSOP and/or SSP testing in order to obtain a valid HLA typing. Otherrare HLA alleles may be possible, but not probable, due to frequency. Result Comment: Jose A Lara, MS,CHT(IRINEO),MT(ASCP) Admin Secretary, Transplant Immunology Performed By: #### 4 5506, 88468, 04868, 60526, 96663, 37280 #### [facility] [address] TACROLIMUSon 02-16-2021 Tacrolimus (Bld) [Mass/Vol] 7.0 ng/mL Normal 5.0-20.0 The [facility] Comment on above: Result Comment: The [employer] Tacrolimus assay is a delayed one-step immunoassay for the quantitative determination of tacrolimus in human whole blood using the chemiluminescent microparticle immunoassay (CMIA) technology with flexible assay protocols, referred to as Chemiflex. Performed By: #### 4 5506, 26212, 08711, 58984, 10164, 18070 #### [facility] [address] [place] [address], [facility] TESTOSTERONE, FREE+SHBG+TOTA L ILon 02-16-2021 [place] Normal The [facility] Comment on above: Result Comment: Test Performed by [employer] [address] [place], [place] [id number] - Released 02/16/2021 18:49 SEX HORM BIND GLOB 52 nmol/L Normal 11-80 The [facility] Testosterone [Mass/Vol] 399 ng/dL Normal 220-1000 The [facility] TESTOSTERONE, FREE 60.0 pg/mL Normal 47-244 The [facility] Comment on above: Result Comment: The concentration of free testosterone is derived from a mathematical expression based on the constant for the binding of testosterone to albumin and/or sex hormone binding globulin. URIC ACID BLOODon 02-16-2021 Urate [Mass/Vol] 8.0 mg/dL High 4.4-7.6 The [facility] Comment on above: Performed By: #### 0 0121, 30319, 88157, 67334, 01575, 26967, 37466, 64510 #### [facility] [address] [place] [address], [facility] VITAMIN D 25-HYDROXYon 02-16 VITAMIN D 25-OH 35.1 ng/mL Normal 30.0-80.0 The [facility] Comment on above: Result Comment: >80. 0 Toxicity possible Performed By: #### 4 5506, 47478, 49487, 11561, 01147, 06621 #### [facility] [address] [place] [address], [facility] Vital Signs Date Time Vital Sign Value Performing Clinician Facility 03-05-2022 09:30-0400 Diastolic blood pressure 74 mm[Hg] MD Jericho Mccarthy Work Phone: [facility] 03-05-2022 09:30-0400 Heart rate 58 /min MD Jericho Mccarthy Work Phone: [facility] 03-05-2022 09:30-0400 Respiratory rate 18 /min MD Jericho Mccarthy Work Phone: [facility] 03-05-2022 09:30-0400 SaO2% (BldA) [Mass fraction] 99 % MD Jericho Mccarthy Work Phone: [facility] 03-05-2022 09:30-0400 Systolic blood pressure 133 mm[Hg] MD Jericho Mccarthy Work Phone: [facility] 03-05-2022 07:01-0400 Body height 167.64 cm MD Jericho Mccarthy Work Phone: [facility] 03-05-2022 07:01-0400 Body temperature 97.9 [degF] MD Jericho Mccarthy Work Phone: [facility] 03-05-2022 07:01-0400 Body weight 74.84 kg MD Jericho Mccarthy Work Phone: [facility] 01-21-2022 10:30-0400 Body height 167.64 cm Tj Wells Other [employer] Other 01-21-2022 10:30-0400 Body mass index (BMI) [Ratio] 26.47 kg/m2 Tj Wells Other [employer] Other 01-21-2022 10:30-0400 Body weight 74.39 kg Tj Wells Other [employer] Other 01-21-2022 10:30-0400 Diastolic blood pressure 71 mm[Hg] Tj Wells Other [employer] Other 01-21-2022 10:30-0400 Systolic blood pressure 148 mm[Hg] Tj Wells Other [facility] [employer] Other Encounters Encounter Date Encounter Type Care Provider Facility Start: 04-28-2023 Evaluation and management of inpatient ESTHER [facility] Start: 04-28-2023 Evaluation and management of inpatient PATRICIA SCHULZ [facility] Start: 04-28-2023 End: 04-30-2023 Evaluation and management of inpatient ESTHER GARDUNO [facility] Start: 04-22-2023 End: 04-22-2023 ambulatory BENJA MCGHEE [facility] Start: 11-11-2022 End: 11-11-2022 ambulatory JERICHO ABAD [facility] Start: 10-04-2022 End: 10-04-2022 ambulatory MARIO EGAN [facility] Start: 10-03-2022 End: 10-04-[address] ALVAREZ MISC Facility:[facility] Start: 08-30-2022 End: 08-31-[address] ALVAREZ MISC Facility:[facility] Start: 08-01-2022 End: 08-02-[address] ALVAREZ MISC Facility:[facility] Start: 07-04-2022 End: 07-05-[address] ALVAREZ MISC Facility:[facility] Start: 05-23-2022 End: 05-24-[address] ALVAREZ MISC Facility:[facility] Start: 04-30-2022 End: 05-01-2022 ambulatory DOCTOR MISC Facility:[facility] Start: 04-03-2022 End: 04-04-[address] ALVAREZ MISC Facility:[facility] Start: 03-08-2022 End: 03-09-[address] NAGA BOSCH Facility:[facility] Start: 03-05-2022 End: 03-05-2022 ambulatory Tj Wells Facility:[facility] Start: 03-05-2022 End: 03-05-2022 Admission to same day surgery center MD Jericho Mccarthy Work Phone: [facility] Start: 03-05-2022 End: 03-05-2022 ambulatory MD Jericho Mccarthy Work Phone: [facility] Work Phone: Start: 03-01-2022 End: 03-01-2022 ambulatory Tj Wells Facility:[facility] Start: 03-01-2022 End: 03-01-2022 ambulatory MD Jericho Mccarthy Work Phone: [facility] Work Phone: Start: 03-01-2022 End: 03-01-2022 Patient encounter procedure MD Jericho Mccarthy Work Phone: [facility] Start: 02-01-2022 End: 02-02-[address] DOCTOR MCCABE Facility:[facility] Start: 01-21-2022 End: 01-21-2022 ambulatory Tj Wells Other [employer] Other Start: 01-21-2022 Office outpatient ne w 45 minutes Tj Wells [facility] Start: 01-04-2022 End: 01-05-[address] NAGA BOSCH Facility:[facility] Start: 11-30-2021 End: 12-01-[address] DOCTOR MCCABE Facility:[facility] Start: 11-14-2021 End: 11-14-[address] JERICHO MCCARTHY Facility:[facility] Procedures Date Procedure Procedure Detail Performing Clinician Start: 03-05-2022 Colonoscopy MD Jericho summers Work Phone: Start: 01-07-2019 Echocardiography Start: 11-19-2018 Echocardiography SARS Antigen (LFIA) MD Jericho Mccarthy Work Phone: Plan of Treatment Date Care Activity Detail Author Start: 03-05-2022 [facility] Patient Education Colitis [facility] Work Phone: Immunizations Immunization Date Immunization Notes Care Provider Fa cility 04-30-2021 COVID-19 mRNA Bivale nt Booster (Pfizer) MD Jericho Mccarthy Work Phone: [facility] 08-01-2020 COVID-19 Akil Santana (Pfizer) MD Jericho Mccarthy Work Phone: [facility] 07-12-2020 COVID-19 Akil Santana (Pfizer) MD Jericho Mccarthy Work Phone: [facility] 02-13-2017 influenza, seasonal, injectable Tj Wells Other [employer] Other 06-27-2016 influenza, seasonal, injectable Tj Wells Other [employer] Other 02-01-2016 pneumococcal polysaccharide vaccine, 23 valent Tj Wells Other [employer] Other Payers Date Payer Category Payer Self-pay [id number] 2022 Unknown [id number] 1958 Medicare [id number] 2.1 [id number] 1958 Private Health Insurance [id number] 1950 Unknown [id number] [id number] 1950 Unknown [id number] [id number] 1950 Unknown [id number] ..[id number] 0.1.381066.3.579.2.593 1951 Unknown [id number] .16.84 0.1.013412.3.579.2.593 1951 Unknown [id number] 2.16.84 0.1.130860.3.579.2.593 1950 Unknown [id number] 2.16.84 0.1.627517.3.579.2.593 1950 Unknown [id number] 2.16.84 0.1.727116.3.579.2.593 1951 Unknown [id number] 2.16.84 0.1.291204.3.579.2.593 1950 Unknown [id number] 2.16.84 0.1.191310.3.579.2.593 1950 Unknown [id number] 2.16.84 0.1.497722.3.579.2.593 1950 Unknown [id number] 2.16.84 0.1.431057.3.579.2.593 1950 Unknown [id number] 2.16.84 0.1.543905.3.579.2.593 Unknown [id number] 2.16.8 40.1.728283.3.579.2.531 Unknown [id number] 2.16.8 40.1.576053.3.579.2.531 Social History Date Type Detail Facility Unknown if ever smoked [employer] Other Sex Assigned At Sex Assigned At Bir th [employer] Other Start: 11-11-2019 End: 03-05-2022 Tobacco smoking status NHIS Ex-smoker (finding) [facility] Start: 1950 Sex Assigned At Male F [facility] Medical Equipment Procedure Code Equipment Code Equipment Original Text Equipment Identifier Dates Creation or revision of arteriovenous fistula GRAFT ARTEGRAFT 6MM X 40CM FDA Start: 01-14-2017 Creation or revision of arteriovenous fistula GRAFT ARTEGRAFT 6MM X 40CM FDA Start: 01-14-2017 Goals Date Patient Goal Desired Activity /State Clinical Notes 09-09-2009 to 04-30-2023 Note Date & Type Note Facility 04-30-2023 Note Attestation signed by Ananda Pan MD at 04/30/2023 3:55 PM I personally saw and examined the patient on the same date of service as resident/fellow . I discussed the findings and therapeutic plan with the resident/fellow . I agree with the documentation, except for any edits/updates below. Teaching Physician's Revisions: Renal allograft function is improved and back to baseline. Continue with current immunosuppressive medications. Follow-up in transplant clinic. Nephrology Progress Note Patient : Wm Suarez; 72 y.o. Location: 5172/5172-01 Attending: Esther Garduno MD Admit Date: 04/27/2023 Hospital Day: 3 Reason for Consult: ESRD s/p Renal transplant Subjective: History of present illness: Wm Suarez is a 72 y.o. male is a 72 y.o. male with PMHx ESRD d/t PKD s/p renal transplant 2019, HTN, HLD, CAD, PVD, COPD, pulmonary hypertension, HFrEF (EF 45%) and NIDDM2. Patient admitted on 04/27/2023 as a transfer from outside hospital in [place] for concerns of possible DKA, hyponatremia, and DAVID. Nephro consulted for assistance with management of immunosuppressants and DAVID. Interval history: Patient seen and examined at bedside this morning. In no apparent distress. He is ready to go home. No acute events or questions. Objective: Input/Output: Intake/Output Summary (Last 24 hours) at 04/30/2023 1338 Last data filed at 04/30/2023 1039 Gross per 24 hour Intake 291.67 ml Output 400 ml Net -108.33 ml I/O last 3 completed shifts: In: 1123 (15.6 mL/kg) [I.V.:1123 (15.6 mL/kg)] Out: 1201 (16.7 mL/kg) [Urine:1200 (0.5 mL/kg/hr); Stool:1] Weight: 72.1 kg Vital signs: Temperature: Temp: 36.5 ???C (97.7 ???F) TMax: Temp (24hrs), Av.9 ???C (98.4 ???F), Min:36.5 ???C (97.7 ???F), Max:37.4 ???C (99.3 ???F) Respirations: Resp: 14 Pulse: Heart Rate: 65 BP: BP: 124/62 BP Range: Systolic (24hrs), Av , Min:107 , Max:142 Diastolic (24hrs), Av, Min:38, Max:66 Wt Readings from Last 3 Encounters: 04/30/23 72.1 kg (158 lb 15.2 oz) 04/22/23 69.9 kg (154 lb) 11/11/22 77.7 kg (171 lb 6.4 oz) Physical Exam Constitutional: Appearance: He is not toxic-appearing. HENT: Head: Normocephalic and atraumatic. Mouth/Throat: Mouth: Mucous membranes are moist. Pharynx: Oropharynx is clear. Cardiovascular: Rate and Rhythm: Normal rate and regular rhythm. Pulmonary: Effort: Pulmonary effort is normal. Breath sounds: No wheezing or rales. Abdominal: Palpations: Abdomen is soft. Tenderness: There is no abdominal tenderness. Musculoskeletal: Right lower leg: No edema. Left lower leg: No edema. Neurological: Mental Status: He is alert. Current Medications: Scheduled Meds: amLODIPine, 10 mg, oral, Daily atorvastatin, 10 mg, oral, Every other day carvedilol, 12.5 mg, oral, BID with meals cinacalcet, 30 mg, oral, Daily with breakfast heparin (porcine), 5,000 Units, subcutaneous, q12h UYEN insulin aspart, 0-20 Units, subcutaneous, With meals & nightly insulin glargine, 20 Units, subcutaneous, Nightly magnesium oxide, 800 mg, oral, BID mycophenolate, 720 mg, oral, BID sildenafil, 20 mg, oral, TID sodium chloride, 10 mL, intravenous, q12h sulfaSALAzine, 500 mg, oral, BID tacrolimus, 0.5 mg, oral, BID BETA Continuous Infusions: PRN Meds: PRN medications: acetaminophen, calcium carbonate, dextrose 50 % in water (D50W) OR dextrose 50 % in water (D50W), glucose OR dextrose 50 % in water (D50W), glucose OR glucose, loperamide, ondansetron ODT OR ondansetron, Insert peripheral IV AND Saline lock IV AND sodium chloride, sodium chloride, sodium chloride Outpatient Medications: Medication Documentation Review Audit Reviewed by Francisca Pena RN (Registered Nurse) on 04/27/23 at 2333 Medication Order Taking? Sig Documenting Provider Last Dose Status aMILoride (Midamor) 5 mg tablet [id number] Take 1 tablet (5 mg) by mouth in the morning. Woodrow Root MD Active amLODIPine (Norvasc) 10 mg tablet [id number] Take 1 tablet (10 mg) by mouth in the morning. Benja Mcghee MD Active atorvastatin (Lipitor) 10 mg tablet [id number] Take 1 tablet (10 mg) by mouth every other day. Mario Egan NP Active carvedilol (Coreg) 12.5 mg tablet [id number] Take 1 tablet (12.5 mg) by mouth with breakfast and with evening meal. Mario Egan NP Active cinacalcet (Sensipar) 30 mg tablet [id number] Take 1 tablet every day by oral route. Praveena Cohen MD Active furosemide (Lasix) 20 mg tablet [id number] take 1 tablet by mouth once daily Naga Bosch MD Active lisinopril 20 mg tablet [id number] Take 1 tablet (20 mg) by mouth in the morning. Benja Mcghee MD Active magnesium oxide (Mag-Ox) 400 mg (241.3 mg magnesium) tablet [id number] take 2 tablets by mo (more content not included)... [facility] 04-30-2023 Note Hospital Medicine Discharge Summary Final Discharge Diagnosis: DKA Admission Diagnosis: DAVID (acute kidney injury) (CMS/[facility]) [N17.9] Hospital course: 72 y.o. male who came from home with DAVID with hyponatremia and uncontrolled hyperglycemia. This is a 72 years old gentleman with a medical history of end-stage renal disease s/p renal transplant 3 years ago here in [facility], peripheral vascular disease, pulmonary hypertension, CAD, and hypertension. Mixed hyperlipidemia, COPD, polycystic kidneys, cataract. Came in as transfer from the outside facility hospital in [place] for concern of possible uncontrolled hyperglycemia with acute kidney injury. The patient was on insulin drip for concern of possible diabetic ketoacidosis with hyponatremia. Admitting the patient to the stepdown unit with stat CBC, CMP, magnesium and phosphorus EKG and chest x-ray with urinalysis and BMP scheduled every 4 hours to follow-up with the hyperglycemia and electrolyte status telemetry monitoring and consult to the nephrology team for any further recommendation is appreciated # DKA in newly diagnosed DM2, resolved: - A1C: 14.6 - Discharged no Lantus 20 U at bedtime and metformin. - Follow up with PCP or endocrine. # DAVID with metabolic acidosis in renal transplant due to dehydration and DKA, resolved: - Continue tacro, Myfortic and sulfasalzine. # Hyperkalemia due to acidosis and DAVID, resolved: - D/C amiloride. # HTN: - Continue Coreg, lisinopril and amlodipine. # Pulmonary HTN: - Continue sildenafil. Dear Dr. Fabio MD, Wm Pillai is advised to follow up with you within 1-2 weeks. Follow-up with: Endocrine and Nephrology Scheduled appointments: Future Appointments Date Time Provider Department Center 05/02/2023 9:00 AM Ramos Hendrickson PA-C [facility] ENDOCR [facility] 05/19/2023 9:00 AM Jericho Abad NP TXP None Your medication list START taking these medications Instructions Last Dose Given Next Dose Due blood-glucose meter misc Test daily before all meals/snacks and once before bedtime. With 100 lancets and strips insulin glargine 100 unit/mL (3 mL) injection pen Commonly known as: Lantus Solostar U-100 Insulin Inject 20 Units under the skin at bedtime. isopropyl alcohoL 70 % towelette Test daily before all meals/snacks and once before bedtime. metFORMIN 500 mg tablet Commonly known as: Glucophage Take 1 tablet (500 mg) by mouth with breakfast and with evening meal. omeprazole OTC 20 mg EC tablet Commonly known as: PriLOSEC OTC Take 1 tablet (20 mg) by mouth before breakfast. Do not crush, chew, or split. pen needle, diabetic 31 gauge x 5/16 needle Use to inject 1-4 times daily as directed. CONTINUE taking these medications Instructions Last Dose Given Next Dose Due amLODIPine 10 mg tablet Commonly known as: Norvasc Take 1 tablet (10 mg) by mouth in the morning. atorvastatin 10 mg tablet Commonly known as: Lipitor Take 1 tablet (10 mg) by mouth every other day. carvedilol 12.5 mg tablet Commonly known as: Coreg Take 1 tablet (12.5 mg) by mouth with breakfast and with evening meal. cinacalcet 30 mg tablet Commonly known as: Sensipar Take 1 tablet every day by oral route. furosemide 20 mg tablet Commonly known as: Lasix take 1 tablet by mouth once daily lisinopril 20 mg tablet Take 1 tablet (20 mg) by mouth in the morning. magnesium oxide 400 mg (241.3 mg magnesium) tablet Commonly known as: Mag-Ox take 2 tablets by mouth three times a day with meals mycophenolate 180 mg EC tablet Commonly known as: Myfortic Take 4 tablets (720 mg) by mouth in the morning and at bedtime. sildenafil 20 mg tablet Commonly known as: Revatio Take 1 tablet 3 times a day by oral route for 90 days. sulfaSALAzine 500 mg EC tablet Commonly known as: Azulfidine tacrolimus 0.5 mg capsule Commonly known as: Prograf Take 1 capsule (0.5 mg) by mouth in the morning and at bedtime. STOP taking these medications aMILoride 5 mg tablet Commonly known as: [facility] Where to Get Your Medications These medications were sent to [id number] - [place], [place] - [address] [id number] blood-glucose meter [facility] [place] insulin glargine 100 unit/mL (3 mL) injection pen isopropyl alcohoL 70 % towelette metFORMIN 500 mg tablet pen needle, diabetic 31 gauge x 5/16 needle You can get these medications from any pharmacy You don't need a prescription for these medications omeprazole OTC 20 mg EC tablet Wm Pillai is allergic to nsaids (non-steroidal anti-inflammatory drug). Disposition: Home or Self Care Discharge Condition: Stable Code Status: Full Code Diagnostic Results Hematology: Results from last 7 days Lab Units 04/30/23 0443 04/27/23 2337 04/27/23 2336 WBC AUTO 10*3/uL 5.11 9.18 -- HEMOGLOBIN g/dL 9.5* 11.1* -- HEMATOCRIT % 28.0* 32.7* -- MCV fL 86.4 86.3 -- PLATELETS AUTO 10*3/uL 232 301 - (more content not included)... [facility] 04-29-2023 Note Hospital Medicine Daily Progress Note - 04/29/2023 11:18 AM; Room: [address] [place] [address] Admission: 04/27/2023 10:59 PM; Length of stay: 2 days THE HOSPITALIST TEAM PREFERS TO USE [employer] CHAT FOR COMMUNICATION 7AM-7PM. IF I DO NOT RESPOND WITHIN 15 MINUTES, PLEASE PAGE ME/CALL THROUGH THE CADET DECK. FROM 7PM-7AM, PLEASE PAGE [phone](COVR) Code Status: Full Code Barriers to Discharge: Pending clinical improvement Expected Discharge Date: 04/30/2023 Discharge Destination: home Overview Patient is seen for evaluation and management of DKA and DAVID Subjective Patient reports mild nausea but no abdominal pain or vomiting. Patient is off insulin drip since 7 PM. Physical Exam Visit Vitals BP (!) 107/45 Pulse 63 Temp 37 ???C (98.6 ???F) Resp 16 Intake/Output Summary (Last 24 hours) at 04/29/2023 1118 Last data filed at 04/29/2023 0359 Gross per 24 hour Intake 1072.92 ml Output 1701 ml Net -628.08 ml Physical Exam Constitutional: Appearance: Normal appearance. Cardiovascular: Rate and Rhythm: Normal rate and regular rhythm. Pulmonary: Effort: Pulmonary effort is normal. Breath sounds: Normal breath sounds. Abdominal: General: Abdomen is flat. Palpations: Abdomen is soft. Neurological: General: No focal deficit present. Mental Status: He is alert and oriented to person, place, and time. Estimated body mass index is 26.08 kg/m??? as calculated from the following: Height as of 04/22/23: 1.676 m (5' 6 ). Weight as of this encounter: 73.3 kg (161 lb 9.6 oz). Active Inpatient Problems Principal Problem: DAVID (acute kidney injury) ([facility]) Assessment and Plan # DKA in newly diagnosed DM2, improved: - A1C: 14.6 - Continue Lantus 20 U at bedtime with ISS. Discharge on metformin and Lantus. - Diabetic education. # DAVID with metabolic acidosis in renal transplant due to dehydration and DKA, improved: - Continue tacro, Myfortic and sulfasalzine. # Hyperkalemia due to acidosis and DAVID, improved: - D/C amiloride. Restart lisinopril on discharge. # HTN: - Continue Coreg and amlodipine. Restart lisinopril on discharge. # Pulmonary HTN: - Continue sildenafil. Nutrition Screen Malnutrition Attestation: I attest to the following: I have personally seen this patient. The patient has been assessed for malnutrition as documentation above, and based on the criteria set by the Academy of Nutrition and Dietetics and the [place] [employer] of Enteral and Parenteral Nutrition, meets the diagnosis for malnutrition. A care plan has been established for this patient. VTE Prophylaxis: Heparin subcutaneous Scheduled Meds amLODIPine, 10 mg, oral, Daily atorvastatin, 10 mg, oral, Every other day carvedilol, 12.5 mg, oral, BID with meals cinacalcet, 30 mg, oral, Daily with breakfast heparin (porcine), 5,000 Units, subcutaneous, q12h UYEN insulin aspart, 0-20 Units, subcutaneous, With meals & nightly insulin glargine, 20 Units, subcutaneous, Nightly mycophenolate, 720 mg, oral, BID sildenafil, 20 mg, oral, TID sodium chloride, 10 mL, intravenous, q12h sulfaSALAzine, 500 mg, oral, BID Pertinent Investigations Hematology: Results from last 7 days Lab Units 04/27/23 2337 04/27/23 2336 WBC AUTO 10*3/uL 9.18 -- HEMOGLOBIN g/dL 11.1* -- HEMATOCRIT % 32.7* -- MCV fL 86.3 -- PLATELETS AUTO 10*3/uL 301 -- INR -- 1.13* Chemistry: Results from last 7 days Lab Units 04/29/23 0403 04/29/23 0000 04/28/236 04/28/23 0514 04/27/23 2336 SODIUM mmol/L 133* 132* 134* < > 129* 129* POTASSIUM mmol/L 4.5 4.8 4.7 < > 4.8 4.8 CHLORIDE mmol/L 103 102 102 < > 101 101 CO2 mmol/L 22 19* 20* < > 18* 18* BUN mg/dL 29* 31* 34* < > 45* 45* CREATININE mg/dL 0.96 1.02 1.07 < > 1.36* 1.36* GLUCOSE mg/dL 175* 206* 144* < > 149* 149* MAGNESIUM mg/dL -- -- -- -- 1.7* CALCIUM mg/dL 8.7 8.7 8.6 < > 8.6 8.6 PHOSPHORUS mg/dL -- -- -- -- 3.7 < > = values in this interval not displayed. Results from last 7 days Lab Units 04/27/23 2336 AST U/L 12* ALT U/L 12 ALK PHOS U/L 100 BILIRUBIN TOTAL mg/dL 0.4 Results from last 7 days Lab Units 04/29/23 0803 04/28/23201504/28/23 1832 04/28/23 1739 04/28/23 1631 04/28/23 1534 POCT GLUCOSE mg/dL 145* 141* 99 115* 145* 165* Historical Values: (Includes values prior to this admission) Lab Results Component Value Date HDL 41 11/11/2022 LDL 49 11/11/2022 Lab Results Component Value Date IRON 111 06/12/2020 PSA 0.2 (L) 12/07/2019 Imaging US kidney transplant Narrative: US KIDNEY TRANSPLANT W DOPPLER 04/28/2023 2:08 PM CLINICAL INDICATIONS:Renal transplant. COMPARISON: February 26, 2020 FINDINGS: There are 2 right lower quadrant transplant kidneys, detailed below: Lateral kidney measures 10.7 x 5.3 x 5.5 cm. No substantial collecting system dilatation. No nephrolithiasis. Patent main renal artery and main renal vein. Resistive indices range from 0.67-0.73. Medial ki (more content not included)... [facility] 04-29-2023 Note Attestation signed by Ananda Pan MD at 04/29/2023 4:41 PM I personally saw and examined the patient on the same date of service as resident/fellow . I discussed the findings and therapeutic plan with the resident/fellow . I agree with the documentation, except for any edits/updates below. Teaching Physician's Revisions: patient with history of renal transplant who presented with DKA. Metabolic derangements is improving and renal function is back to baseline. Continue with current immunosuppressive medications. continue tacrolimus 0.5 mg twice daily. recommended to get labs next week and will adjust dose accordingly. Nephrology Progress Note Patient : Wm Suarez; 72 y.o. Location: 5172/5172-01 Attending: Esther Garduno MD Admit Date: 04/27/2023 Hospital Day: 2 Reason for Consult: ESRD s/p Renal transplant Subjective: History of present illness: Wm Suarez is a 72 y.o. male is a 72 y.o. male with PMHx ESRD d/t PKD s/p renal transplant 2019, HTN, HLD, CAD, PVD, COPD, pulmonary hypertension, HFrEF (EF 45%) and NIDDM2. Patient admitted on 04/27/2023 as a transfer from outside hospital in [place] for concerns of possible DKA, hyponatremia, and DAVID. Nephro consulted for assistance with management of immunosuppressants and DAVID. Interval history: Patient seen and examined at bedside this morning. In no apparent distress. He is sitting on the side of te bed eating breakfast. He does endorse some difficulty swallowing and pain on swallowing. No acute events reported overnight. Denies any chest pain, shortness of breath, abdominal pain, nausea or vomiting Objective: Input/Output: Intake/Output Summary (Last 24 hours) at 04/29/2023 1028 Last data filed at 04/29/2023 0359 Gross per 24 hour Intake 1072.92 ml Output 1701 ml Net -628.08 ml I/O last 3 completed shifts: In: 2347.6 (32 mL/kg) [I.V.:1239.6 (16.9 mL/kg); IV Piggyback:1108] Out: 2000 (27.3 mL/kg) [Urine:2000 (0.8 mL/kg/hr); Stool:1] Weight: 73.3 kg Vital signs: Temperature: Temp: 37 ???C (98.6 ???F) TMax: Temp (24hrs), Av.7 ???C (98.1 ???F), Min:36.2 ???C (97.1 ???F), Max:37 ???C (98.6 ???F) Respirations: Resp: 16 Pulse: Heart Rate: 63 BP: BP: (!) 107/45 BP Range: Systolic (24hrs), Av , Min:100 , Max:120 Diastolic (24hrs), Av, Min:34, Max:78 Wt Readings from Last 3 Encounters: 04/29/23 73.3 kg (161 lb 9.6 oz) 04/22/23 69.9 kg (154 lb) 11/11/22 77.7 kg (171 lb 6.4 oz) Physical Exam Constitutional: Appearance: He is not toxic-appearing. HENT: Head: Normocephalic and atraumatic. Mouth/Throat: Mouth: Mucous membranes are moist. Pharynx: Oropharynx is clear. Cardiovascular: Rate and Rhythm: Normal rate and regular rhythm. Pulmonary: Effort: Pulmonary effort is normal. Breath sounds: No wheezing or rales. Abdominal: Palpations: Abdomen is soft. Tenderness: There is no abdominal tenderness. Musculoskeletal: Right lower leg: No edema. Left lower leg: No edema. Neurological: Mental Status: He is alert. Current Medications: Scheduled Meds: amLODIPine, 10 mg, oral, Daily atorvastatin, 10 mg, oral, Every other day carvedilol, 12.5 mg, oral, BID with meals cinacalcet, 30 mg, oral, Daily with breakfast heparin (porcine), 5,000 Units, subcutaneous, q12h UYEN insulin aspart, 0-20 Units, subcutaneous, With meals & nightly insulin glargine, 20 Units, subcutaneous, Nightly mycophenolate, 720 mg, oral, BID sildenafil, 20 mg, oral, TID sodium chloride, 10 mL, intravenous, q12h sulfaSALAzine, 500 mg, oral, BID Continuous Infusions: PRN Meds: PRN medications: acetaminophen, calcium carbonate, dextrose 50 % in water (D50W) OR dextrose 50 % in water (D50W), glucose OR dextrose 50 % in water (D50W), glucose OR glucose, lidocaine, loperamide, ondansetron ODT OR ondansetron, Insert peripheral IV AND Saline lock IV AND sodium chloride, sodium chloride, sodium chloride Outpatient Medications: Medication Documentation Review Audit Reviewed by Francisca Pena RN (Registered Nurse) on 04/27/23 at 2333 Medication Order Taking? Sig Documenting Provider Last Dose Status aMILoride (Midamor) 5 mg tablet [id number] Take 1 tablet (5 mg) by mouth in the morning. Woodrow Root MD Active amLODIPine (Norvasc) 10 mg tablet [id number] Take 1 tablet (10 mg) by mouth in the morning. Benja Mcghee MD Active atorvastatin (Lipitor) 10 mg tablet [id number] Take 1 tablet (10 mg) by mouth every other day. Mario Egan NP Active carvedilol (Coreg) 12.5 mg tablet [id number] Take 1 tablet (12.5 mg) by mouth with breakfast and with evening meal. Mario Egan NP Active cinacalcet (Sensipar) 30 mg tablet [id number] Take 1 tablet every day by oral route. Praveena Cohen MD Acti (more content not included)... [facility] 04-28-2023 Note Hospital Medicine Daily Progress Note - 04/28/2023 12:34 PM; Room: [address] [place] [address] Admission: 04/27/2023 10:59 PM; Length of stay: 1 days THE HOSPITALIST TEAM PREFERS TO USE [employer] CHAT FOR COMMUNICATION 7AM-7PM. IF I DO NOT RESPOND WITHIN 15 MINUTES, PLEASE PAGE ME/CALL THROUGH THE CADET DECK. FROM 7PM-7AM, PLEASE PAGE [phone](COVR) Code Status: Full Code Barriers to Discharge: Pending improvement in DKA Expected Discharge Date: 04/30/2023 Discharge Destination: home Overview Patient is seen for evaluation and management of DKA and DAVID Subjective Patient reports mild nausea but no abdominal pain. Physical Exam Visit Vitals BP 130/57 (BP Location: Right arm, Patient Position: Lying) Pulse 68 Temp 37 ???C (98.6 ???F) (Oral) Resp 12 Intake/Output Summary (Last 24 hours) at 04/28/2023 1234 Last data filed at 04/28/2023 1007 Gross per 24 hour Intake 1274.67 ml Output 300 ml Net 974.67 ml Physical Exam Constitutional: Appearance: Normal appearance. Cardiovascular: Rate and Rhythm: Normal rate and regular rhythm. Pulmonary: Effort: Pulmonary effort is normal. Breath sounds: Normal breath sounds. Abdominal: General: Abdomen is flat. Palpations: Abdomen is soft. Neurological: General: No focal deficit present. Mental Status: He is alert and oriented to person, place, and time. Estimated body mass index is 25.02 kg/m??? as calculated from the following: Height as of 04/22/23: 1.676 m (5' 6 ). Weight as of this encounter: 70.3 kg (155 lb). Active Inpatient Problems Principal Problem: DAVID (acute kidney injury) ([facility]) Assessment and Plan # DKA in newly diagnosed DM2: - Start sodium bicarb and insulin drip. - A1C: 14.6 # DAVID with metabolic acidosis in renal transplant due to dehydration and DKA: - Start sodium bicarb drip. - Continue tacro, Myfortic and sulfasalzine pending Nephro eval. # Hyperkalemia due to acidosis and DAVID: - Insulin drip will correct potassium. Recheck in 4-6 hours. - Hold spironolactone and amiloride. # HTN: - Continue Coreg and amlodipine. Hold lisinopril for now due to DAVID. # Pulmonary HTN: - Continue sildenafil. Nutrition Screen Malnutrition Attestation: I attest to the following: I have personally seen this patient. The patient has been assessed for malnutrition as documentation above, and based on the criteria set by the Academy of Nutrition and Dietetics and the [place] [employer] of Enteral and Parenteral Nutrition, meets the diagnosis for malnutrition. A care plan has been established for this patient. VTE Prophylaxis: Heparin subcutaneous Scheduled Meds amLODIPine, 10 mg, oral, Daily atorvastatin, 10 mg, oral, Every other day carvedilol, 12.5 mg, oral, BID with meals cinacalcet, 30 mg, oral, Daily with breakfast heparin (porcine), 5,000 Units, subcutaneous, q12h UYEN insulin aspart, 0-20 Units, subcutaneous, With meals & nightly mycophenolate, 720 mg, oral, BID sildenafil, 20 mg, oral, TID sulfaSALAzine, 500 mg, oral, BID tacrolimus, 0.5 mg, oral, 2 times daily D5 %-0.45 % sodium chloride, 100 mL/hr insulin regular, 0-60 Units/hr, Last Rate: 8 Units/hr (04/28/23 1221) sodium bicarbonate 100 mEq in sodium chloride 0.45 % 1,000 mL infusion, 125 mL/hr, Last Rate: 125 mL/hr (04/28/23 1026) Pertinent Investigations Hematology: Results from last 7 days Lab Units 04/27/23 2337 04/27/23 2336 WBC AUTO 10*3/uL 9.18 -- HEMOGLOBIN g/dL 11.1* -- HEMATOCRIT % 32.7* -- MCV fL 86.3 -- PLATELETS AUTO 10*3/uL 301 -- INR -- 1.13* Chemistry: Results from last 7 days Lab Units 04/28/23 0732 04/28/23 0514 04/27/23 2336 SODIUM mmol/L 128* 129* 129* 129* POTASSIUM mmol/L 5.7* 5.7* 4.8 4.8 CHLORIDE mmol/L 99 99 101 101 CO2 mmol/L 13* 13* 18* 18* BUN mg/dL 45* 44* 45* 45* CREATININE mg/dL 1.33* 1.31* 1.36* 1.36* GLUCOSE mg/dL 324* 264* 149* 149* MAGNESIUM mg/dL -- -- 1.7* CALCIUM mg/dL 8.9 8.8 8.6 8.6 PHOSPHORUS mg/dL -- -- 3.7 Results from last 7 days Lab Units 04/27/23 2336 AST U/L 12* ALT U/L 12 ALK PHOS U/L 100 BILIRUBIN TOTAL mg/dL 0.4 Results from last 7 days Lab Units 04/28/23 1124 04/28/23 1000 04/28/23 0719 04/27/23 2309 POCT GLUCOSE mg/dL 315* 356* 312* 139* Historical Values: (Includes values prior to this admission) Lab Results Component Value Date HDL 41 11/11/2022 LDL 49 11/11/2022 Lab Results Component Value Date IRON 111 06/12/2020 PSA 0.2 (L) 12/07/2019 Imaging Electrocardiogram, 12-lead Normal sinus rhythm Nonspecific ST abnormality Abnormal ECG When compared with ECG of 25-FEB-2020 13:13, No significant change was found Confirmed by Josefa SANTIAGO, PRICE Simms ([id number]) on 04/28/2023 8:56:20 AM XR chest 1 view Narrative: XR CHEST 1 VIEW 04/28/2023 1:13 AM CLINICAL INDICATIONS: Acute renal failure COMPARISON: Chest x-ray 02/26/2020 FINDINGS: AP upright view of the chest was performed. Cardiac silhouette is (more content not included)... [facility] 04-28-2023 Note . Hospital Medicine History and Physical 04/27/2023 11:16 PM THE HOSPITALIST TEAM PREFERS TO USE [employer] CHAT FOR COMMUNICATION 7AM-7PM. IF I DO NOT RESPOND WITHIN 15 MINUTES, PLEASE PAGE ME/CALL THROUGH THE CADET DECK. FROM 7PM-7AM, PLEASE PAGE [phone](COVR) Chief Complaint No chief complaint on file. History of Present Illness Wm Suarez is an 72 y.o. male who came from home with DAVID with hyponatremia and uncontrolled hyperglycemia. This is a 72 years old gentleman with a medical history of end-stage renal disease s/p renal transplant 3 years ago here in [facility], peripheral vascular disease, pulmonary hypertension, CAD, and hypertension. Mixed hyperlipidemia, COPD, polycystic kidneys, cataract. Came in as transfer from the outside facility hospital in [place] for concern of possible uncontrolled hyperglycemia with acute kidney injury. The patient was on insulin drip for concern of possible diabetic ketoacidosis with hyponatremia. Admitting the patient to the stepdown unit with stat CBC, CMP, magnesium and phosphorus EKG and chest x-ray with urinalysis and BMP scheduled every 4 hours to follow-up with the hyperglycemia and electrolyte status telemetry monitoring and consult to the nephrology team for any further recommendation is appreciated Review of System and Physical Exam Physical Exam Vitals reviewed. Constitutional: Appearance: Normal appearance. He is normal weight. HENT: Head: Normocephalic and atraumatic. Right Ear: Tympanic membrane, ear canal and external ear normal. Left Ear: Tympanic membrane, ear canal and external ear normal. Nose: Nose normal. Mouth/Throat: Mouth: Mucous membranes are moist. Pharynx: Oropharynx is clear. Eyes: Conjunctiva/sclera: Conjunctivae normal. Pupils: Pupils are equal, round, and reactive to light. Cardiovascular: Rate and Rhythm: Normal rate and regular rhythm. Abdominal: General: Bowel sounds are normal. Musculoskeletal: Cervical back: Normal range of motion and neck supple. Skin: General: Skin is warm. Capillary Refill: Capillary refill takes 2 to 3 seconds. Neurological: General: No focal deficit present. Mental Status: He is alert. Mental status is at baseline. Psychiatric: Mood and Affect: Mood normal. Thought Content: Thought content normal. Judgment: Judgment normal. Review of Systems All other systems reviewed and are negative. Problem List Patient Active Problem List Diagnosis Date Noted DAVID (acute kidney injury) ([facility]) 04/27/2023 COLD (chronic obstructive lung disease) ([facility]) 04/16/2023 Essential hypertension, benign 04/16/2023 Pleurisy with effusion 04/16/2023 Polycystic kidney 04/16/2023 Moderate mixed hyperlipidemia not requiring statin therapy 04/16/2022 Cataract 01/29/2022 Congestive heart failure ([facility]) 01/29/2022 Coronary atherosclerosis 01/29/2022 Multiple congenital cysts of kidney 01/29/2022 History of renal transplant 10/31/2021 Increased infection risk status post immunosuppressive therapy 10/31/2021 Peripheral vascular disease ([facility]) 01/23/2018 End-stage renal disease ([facility]) 07/22/2009 Assessment and Plan #Acute kidney injury #Early diabetic ketoacidosis #History of renal transplant -Admitted to the stepdown unit -Telemetry monitoring -Stat CBC, CMP, magnesium and phosphorus ordered -Chest x-ray urinalysis and EKG ordered stat -A1c and lipid panel -ASCVD risk estimation -Consulted nephrology -Avoid nephrotoxic medication #HFrEF CHF -EF of 45% -NYHA class II -CHF core measures #COPD -Scheduled breathing treatment -Not an active exacerbation #GI prophylaxis: PPI #CHF DKA and DAVID VTE Prophylaxis: Heparin subcutaneous ----- Focus of this inpatient stay will remain on problems that need acute care setting for care. We will review available studies and will order additional labs, imaging and other studies as appropriate. As needed medicines are ordered as appropriate. VTE Prophylaxis will be ordered as appropriate. Please see above for management plan for individual hospital problems. Home medications are reviewed and will be continued as appropriate. Patient will be continued to be followed during this hospital stay by a member of [facility]. Past Medical History Past Medical History: Diagnosis Date CHF (congestive heart failure) ([facility]) Chronic kidney disease Coronary artery disease Hypertension Pulmonary hypertension (CMS/HCC) Past Surgical History Past Surgical History: Procedure Laterality Date AV FISTULA PLACEMENT CARDIAC CATHETERIZATION CATARACT EXTRACTION COLONOSCOPY HAND SURGERY TRANSPLANTATION RENAL Social History Social History Socioeconomic History Marital status: Single Spouse name: Not on file Number of children: Not on file Years of education: Not on file Highest education level: Not on file Occupational History Not on file Tobacco Use (more content not included)... [facility] 04-22-2023 Note [place] [facility] - [facility] Subjective Wm Suarez is a 72 y.o. year old male patient being seen for 6 mo follow up pulmonary hypertension, CAD, and hypertension. C/o dizziness and LUE numbness. Denies chest pain and palpitations. ORTEGA is intermittent. Patient Active Problem List Diagnosis Cataract Congestive heart failure (CMS/HCC) Coronary atherosclerosis End-stage renal disease (CMS/HCC) History of renal transplant Peripheral vascular disease (CMS/HCC) Increased infection risk status post immunosuppressive therapy Multiple congenital cysts of kidney Moderate mixed hyperlipidemia not requiring statin therapy COLD (chronic obstructive lung disease) (CMS/HCC) Essential hypertension, benign Pleurisy with effusion Polycystic kidney Family History Problem Relation Name Age of Onset Diabetes Mother Hypertension Mother Coronary artery disease Mother Other (cabg) Mother Cystic kidney disease Mother Hypertension Father Skin cancer Father Cystic kidney disease Father Cystic kidney disease Sister Heart disease Brother ALS Brother Cystic kidney disease Brother Social History Tobacco Use Smoking status: Former Types: Cigarettes Smokeless tobacco: Never Substance Use Topics Alcohol use: Not Currently Drug use: Never HPI Wm Suarez is seen in follow up. He was initially referred from Dr Root's office for cardiac evaluation prior to renal transplantation. Visit of 01/29/2018: He is 68 year old male with ESRD due to polycystic kidney disease, last evaluated 2011. Patient started hemodialysis 07/2009 via a left arm AV fistula. Past medical history includes HTN (27 years controlled w/ medication), and h/o cataract(s/p surgery). There is no reported CAD or cardiac problems. He denies chest pain, he has occasional shortness of breath on moderate exertion, and very rare palpitations. He is not very active. There is occasional ankle swelling, and no syncope. There is no claudication by history. Labs 11/18/2017: Lipids: Chol 111; TG 46; LDL 53; HDL 49. BNP 172. Cardiac testing: ECG (11/18/17): NSR 60 bpm. Limb lead reversal, otherwise normal. Echocardiogram 01/29/2018: Global left ventricular systolic function is normal (Visually estimated EF 60%). No regional wall motion abnormality. Normal right ventricular systolic function. The left atrium is mildly enlarged. Mild mitral regurgitation. Doppler studies suggest mildly elevated right sided pressures. RVSP 40 mmHg. Mild aortic dilatation . Stress test 01/29/2018: No evidence of ischemia. Normal myocardial perfusion with diaphragmatic artifact. Normal global left ventricular systolic function. LVEF 67%. No ischemic ECG changes. Update 02/16/2019: Seen in follow up. Patient had fluid overload/acute heart failure admission on 08/2018 at [facility]. He had couple of dialysis session during that admission. Currently he denies ORTEGA, Angina, PND and orthopnea. His echocardiogram following the hospitalization showed new onset left ventricular systolic dysfunction with an ejection fraction of 45-50 percent. He also had severe pulmonary hypertension. Echo 01/07/2019: EF 45-50% with global hypokinesia with minor regional variations. RVSP 77 mmHg Large pleural effusion. small to moderate pericardial effusion Echocardiogram 03/04/2019: Global left ventricular systolic function is mildly reduced (Visually estimated EF 45-50%). Left ventricular wall thickness is mildly increased. Concentric left ventricular hypertrophy. Diffuse global hypokinesis. Right ventricular systolic function appears reduced. The left atrium is severely enlarged. Mild mitral regurgitation. Mild-moderate tricuspid regurgitation. Doppler studies suggest severely elevated right sided pressures. RVSP 68 mmHg. There is a small pericardial effusion. Update 04/22/2019: Is seen in follow-up. After last visit I proceeded with cardiac catheterization. This showed the evidence of mild to moderate single-vessel coronary artery disease [50 percent circumflex]. He had elevated filling pressures with moderate pulmonary hypertension with a mean PA pressure of 36. He was recommended fluid removal at dialysis. A follow-up echocardiogram on 04/15/2019 showed a mildly reduced left ventricular systolic function with an ejection fraction of 48.6 percent. The RVSP was still severely elevated at 61 [down from 68 mmHg on the prior study] He has been doing well. He says that his dry weight has come down with dialysis. He has no chest pain and no-shows of breath. No lower extremity edema. Cardiac catheterization 03/04/2019: 1. [id number] single-vessel coronary artery disease with 50% stenosis in the mid to distal circumflex and minimal disease in the LAD and RCA. 2. Moderate elevation of filling pressures. 3. Moderate pulmonary hypertension. 4. Preserved cardiac output and cardiac index. RA 8, RV 59/4, 12. PA (more content not included)... [facility] 04-02-2023 Note New standing lab ord er placed in today's outgoing mail. Following call from clinic [facility] that pt is @ [facility] for lab draws, faxed to [phone] new order and requested [place] fax all lab results to [place] [facility] as last monthly lab results were received September 2022. Pt notified order sent & mailed and to contact [place] [facility] monthly when labs are completed to confirm receipt or have testing @ [facility]. He acknowledged. Encouraged to FU next week with [place] transplant. [facility] 11-13-2022 Note Received call from mariam huntley inquiring about Amiloride. Rx sent as ordered on Friday. Pt mailed tips for diarrhea stating liquid Maalox is not helpful. States he is taking six Mag tablets every day. Reviewed probiotic and Miralax tip with pt by phone. Verbalized understanding. [facility] 11-11-2022 Note Updated Dk MOSES by phone today Reviewed Mag level 1.3 and per phone order start Amiloride 5mg every day and to watch K levels. Detailed voicemail left on home phone [phone] with new Rx, reason for change and to watch K levels. Tac pending. No voicemail on listed cell phone. Spoke with lis Miller emergency contact [phone] who sets up his meds. She was advised of new RX and she stated she is unsure if pt is taking Mag Oxide due to side effects of diarrhea. Advised to resume dosing and discussed tips for diarrhea including liquid Maalox with each dose and she verbalized understanding (states she had kidney transplant and takes Mag). Plans to fill amiloride dosing. [facility] 11-11-2022 Note Notified pt that his Hgb AIC 8.5 and to contact PCP for improved glucose control to preserve health of kidney transplant and general health. Pt verbalized understanding. [facility] 11-11-2022 Note 11/11/22 Chief Complaint Patient presents with Kidney Follow-up 6 mo follow No concerns PCP: Jericho Mccarthy MD Txp Referring: Preferred Pharmacy: [facility] #[id number] [id number] [facility] - [address] [address] Subjective Visit Vitals BP 134/61 (BP Location: Right arm, Patient Position: Sitting) Pulse 56 Temp 36.4 ???C (97.6 ???F) (Oral) Ht 1.676 m (5' 6 ) Wt 77.7 kg (171 lb 6.4 oz) BMI 27.66 kg/m??? Smoking Status Former BSA 1.9 m??? Allergies Allergen Reactions Nsaids (Non-Steroidal Anti-Inflammatory Drug) Medication Documentation Review Audit Reviewed by Judith Royal MA (Clinical Project Coordinator) on 11/11/22 at 0830 Medication Order Taking? Sig Documenting Provider Last Dose Status amLODIPine (Norvasc) 10 mg tablet [id number] Yes Take 1 tablet (10 mg) by mouth in the morning. Benja Mcghee MD Taking Active atorvastatin (Lipitor) 10 mg tablet [id number] Yes Take 1 tablet (10 mg) by mouth every other day. Mario Egan NP Taking Active carvedilol (Coreg) 12.5 mg tablet [id number] Yes Take 1 tablet (12.5 mg) by mouth with breakfast and with evening meal. Mario Egan NP Taking Active cinacalcet (Sensipar) 30 mg tablet [id number] Yes Take 1 tablet every day by oral route. Praveena Cohen MD Taking Active furosemide (Lasix) 20 mg tablet [id number] Yes take 1 tablet by mouth once daily Naga Bosch MD Taking Active lisinopril 20 mg tablet [id number] Yes Take 1 tablet by mouth in the morning. Historical Provider, Taking Active magnesium oxide (Mag-Ox) 400 mg (241.3 mg magnesium) tablet [id number] Yes take 2 tablets by mouth three times a day with meals Woodrow Root MD Taking Active mycophenolate (Myfortic) 180 mg EC tablet [id number] Yes Take 4 tablets (720 mg) by mouth in the morning and at bedtime. Jericho Abad NP Taking Active sildenafil (Revatio) 20 mg tablet [id number] Yes Take 1 tablet 3 times a day by oral route for 90 days. Mario Egan NP Taking Active sulfaSALAzine (Azulfidine) 500 mg EC tablet [id number] Yes Take 500 mg by mouth in the morning and at bedtime. Historical Provider, Taking Active tacrolimus (Prograf) 0.5 mg capsule [id number] Yes Take 1 capsule (0.5 mg) by mouth in the morning and at bedtime. Jericho Abad NP Taking Active Immunization History Administered Date(s) Administered Influenza, Seasonal, Quadrivalent, Adjuvanted 04/30/2021 Influenza, Unspecified 02/09/2017 Influenza, injectable, quadrivalent 02/09/2019 Influenza, seasonal, injectable 06/27/2016, 02/13/2017 Pfizer SARS-CoV-2 Vaccination 07/12/2020, 08/02/2020, 04/30/2021 Pneumococcal Polysaccharide PPV23 02/01/2016 Patient Active Problem List Diagnosis Cataract Congestive heart failure (CMS/HCC) Coronary atherosclerosis End-stage renal disease (CMS/HCC) History of renal transplant Peripheral vascular disease (CMS/HCC) Increased infection risk status post immunosuppressive therapy Multiple congenital cysts of kidney Moderate mixed hyperlipidemia not requiring statin therapy Family History Problem Relation Name Age of Onset Diabetes Mother Hypertension Mother Coronary artery disease Mother Other (cabg) Mother Cystic kidney disease Mother Hypertension Father Skin cancer Father Cystic kidney disease Father Cystic kidney disease Sister Heart disease Brother ALS Brother Cystic kidney disease Brother Social History Tobacco Use Smoking status: Former Types: Cigarettes Smokeless tobacco: Never Substance Use Topics Alcohol use: Not Currently Drug use: Never Past Medical History: Diagnosis Date CHF (congestive heart failure) (CMS/HCC) Chronic kidney disease Coronary artery disease Hypertension Pulmonary hypertension (CMS/HCC) Past Surgical History: Procedure Laterality Date AV FISTULA PLACEMENT CARDIAC CATHETERIZATION CATARACT EXTRACTION COLONOSCOPY HAND SURGERY TRANSPLANTATION RENAL Travel Screening Question Response In the last 10 days, have you been in contact with someone who was confirmed or suspected to have Coronavirus/COVID-19? No / Unsure Have you had a COVID-19 viral test in the last 10 days? No Do you have any of the following new or worsening symptoms? None of these Have you traveled internationally or domestically in the last month? No Travel History Travel since 10/12/22 No documented travel since 10/12/22 HPI Wm Suarez is a 71 y.o. male who End-stage renal disease secondary to Polycystic Kidneys who underwent donor kidney transplant on 02/26/2020 (Kidney). 11/11/22 Pt here for office visit. Pt Hx: end-stage renal disease secondary to polycystic kidney disease and was on hemodialysis since 07/22/2009. He also has medical history of hypertension, heart roshan (more content not included)... [facility] 10-04-2022 Note Patient here for 6 m o follow up CAD, pulmonary hypertension, and hx of renal transplant. Just had monthly labs drawn yesterday. Denies chest pain and SOB. No new cardiac symptoms. Doing well. Review of Systems Cardiovascular: Positive for leg swelling. Musculoskeletal: Positive for arthritis and back pain. Neurological: Positive for light-headedness. All other systems reviewed and are negative. [facility] 10-04-2022 Note Cardiovascular Medic ine [facility] SUBJECTIVE Chief Complaint Patient presents with Coronary Artery Disease Hypertension Congestive Heart Failure Wm Suarez is a 71 y.o. male here for follow-up. HPI PMHx: Coronary Artery Disease, Hypertension, Congestive Heart Failure, hypertension, and hx of renal transplant He has been feeling well since last seen. He denies c/o CP, dyspnea at rest or exertion, orthopnea, PND, dizziness/LH, palpitations. He has some intermittent leg swelling that is worst at the end of the day and improves by the AM. He admits to no current exercise regimen. He does not limit his Na+ intake. He does not check his BP at home. Patient Active Problem List Diagnosis Cataract Congestive heart failure (CMS/HCC) Coronary atherosclerosis End-stage renal disease (CMS/HCC) History of renal transplant Peripheral vascular disease (CMS/HCC) Increased infection risk status post immunosuppressive therapy Multiple congenital cysts of kidney Moderate mixed hyperlipidemia not requiring statin therapy Past Medical History: Diagnosis Date CHF (congestive heart failure) (CMS/HCC) Chronic kidney disease Coronary artery disease Hypertension Pulmonary hypertension (CMS/HCC) Family History Problem Relation Name Age of Onset Diabetes Mother Hypertension Mother Coronary artery disease Mother Other (cabg) Mother Cystic kidney disease Mother Hypertension Father Skin cancer Father Cystic kidney disease Father Cystic kidney disease Sister Heart disease Brother ALS Brother Cystic kidney disease Brother Social History Tobacco Use Smoking status: Former Types: Cigarettes Smokeless tobacco: Never Substance Use Topics Alcohol use: Not Currently Drug use: Never Allergies Allergen Reactions Nsaids (Non-Steroidal Anti-Inflammatory Drug) ROS Cardiovascular: Positive for leg swelling. Musculoskeletal: Positive for arthritis and back pain. Neurological: Positive for light-headedness. All other systems reviewed and are negative. OBJECTIVE Visit Vitals BP 153/81 (BP Location: Right arm, Patient Position: Sitting) Pulse 78 Ht 1.664 m (5' 5.5 ) Wt 76.7 kg (169 lb) SpO2 97% BMI 27.70 kg/m??? Smoking Status Former BSA 1.88 m??? Medications: Current Outpatient Medications: amLODIPine (Norvasc) 10 mg tablet, Take 1 tablet (10 mg) by mouth in the morning., Disp: 90 tablet, Rfl: 3 cinacalcet (Sensipar) 30 mg tablet, Take 1 tablet every day by oral route., Disp: 90 tablet, Rfl: 3 furosemide (Lasix) 20 mg tablet, take 1 tablet by mouth once daily, Disp: 90 tablet, Rfl: 3 lisinopril 20 mg tablet, Take 1 tablet by mouth in the morning., Disp: , Rfl: magnesium oxide (Mag-Ox) 400 mg (241.3 mg magnesium) tablet, take 2 tablets by mouth three times a day with meals, Disp: 180 tablet, Rfl: 11 mycophenolate (Myfortic) 180 mg EC tablet, Take 4 tablets (720 mg) by mouth in the morning and at bedtime., Disp: 720 tablet, Rfl: 3 sulfaSALAzine (Azulfidine) 500 mg EC tablet, Take 500 mg by mouth in the morning and at bedtime., Disp: , Rfl: tacrolimus (Prograf) 0.5 mg capsule, Take 1 capsule (0.5 mg) by mouth in the morning and at bedtime., Disp: 180 capsule, Rfl: 3 atorvastatin (Lipitor) 10 mg tablet, Take 1 tablet (10 mg) by mouth every other day., Disp: 45 tablet, Rfl: 3 carvedilol (Coreg) 12.5 mg tablet, Take 1 tablet (12.5 mg) by mouth with breakfast and with evening meal., Disp: 180 tablet, Rfl: 3 sildenafil (Revatio) 20 mg tablet, Take 1 tablet 3 times a day by oral route for 90 days., Disp: 270 tablet, Rfl: 3 Physical Exam Constitutional: Appearance: Normal appearance. He is normal weight. HENT: Head: Normocephalic and atraumatic. Right Ear: External ear normal. Left Ear: External ear normal. Eyes: Extraocular Movements: Extraocular movements intact. Pupils: Pupils are equal, round, and reactive to light. Neck: Vascular: No carotid bruit. Comments: No visible JVD Cardiovascular: Rate and Rhythm: Normal rate and regular rhythm. Pulses: Normal pulses. Heart sounds: Normal heart sounds. Pulmonary: Effort: Pulmonary effort is normal. Breath sounds: Normal breath sounds. Abdominal: General: Bowel sounds are normal. Palpations: Abdomen is soft. Musculoskeletal: General: Normal range of motion. Cervical back: Neck supple. Right lower leg: No edema. Left lower leg: No edema. Skin: General: Skin is warm and dry. Neurological: General: No focal deficit present. Mental Status: He is alert and oriented to person, place, and time. Psychiatric: Mood and Affect: Mood normal. Behavior: Behavior normal. Thought Content: Thought content normal. Judgment: Judgment normal. Labs: 08/01/2022 Hgb 12.1, plt 248, WBC 5.9 Cr 0.98, BUN 8, K 4.5, Na 134, eGFR >60, ALT 26, AST 20, mag 1.5 Chol 95, HDL 49, trig 53, LDL 35 Documentation on 04/16/2022 Component Date Value Ref Range Status (more content not included)... [facility] 03-05-2022 Procedure note [facility] 01-21-2022 Evaluation note Encounter Date Diagnosis Assessment Notes Jan, Diarrhea (ICD-10 - R19.7) Colonoscopy Okay to take Imodium - 1 tablet every morning Jan, Fecal urgency (ICD-10 - R15.2) [facility] [employer] Other 05-01-2010 History general Narrative - Reported* Type Description Date Medical History HTN Medical History ESRD-on hemodialysis Medical History Polycystic kidney disease Surgical History Left rosio fistula creation Surgical History Right hand orthopedi c surgery due to fracture Surgical History Left forearm Cimmo f istulogram with balloon angioplasties 12/2010, 12/2012, 10/2014, 12/2015 Surgical History left upper arm basil ic fistula transposition, fistulogram, balloon angioplasty/stent (Viabahn 8X25mm) in the forearm venous outflow 07/23/2016 Surgical History left upper extremity fistulogram, balloon angioplasty 11/14/2016 Surgical History left forearm tomas-fi stula resection, a new graft (Artegraft) placement, balloon angioplasty 01/14/17 Surgical History colonoscopy 07/08/2017 Surgical History right kidney transplant 2019 Hospitalization History Kidney Issue; on transplant list ([facility]) 02/2018 Hospitalization History pulmonary embolism 0 [employer] Other Evaluation noteNo assessment information available [facility] Work Phone: Evaluation note* Diagnosis Onset Date Resolution Status Diarrhea acute [facility] Work Phone: Hospital Discharge instructions Additional Instructions DISCHARGE INSTRUCTIONS FOR ENDOSCOPY FOR COLONOSCOPY: -Expect a gassy or full feeling after a colonoscopy. Report any NEW abdominal pain or vomiting. FOR SEDATION FOR 24 HOURS: -NO driving -Do NOT operate machinery such as power tools, lawn mowers, snow blowers, sewing machines, etc. -Avoid alcoholic beverages and drugs for allergies, nerves, or sleep. -Do NOT stay alone. Do NOT leave your child unattended. -Do NOT make important personal or business decisions or sign any legal documents. -Eat solid foods and drink liquids in smaller amounts than usual until normal appetite returns. If you should experience an upset stomach, liquids high in sugar content (soda, Lokesh-aid, non-acid juices) are recommended. -You can resume normal activities tomorrow. FOLLOW UP Please call the office and make a follow up appointment to see me in 6-8 weeks. Sulfasalazine 2 tabs p.o. twice daily -Notify the doctor if you have any problems. -[phone] Work Phone: Reason for visit NarrativePATIENT REFERRED BY DR. MCCARTHY FOR EVALUATION AND TREATMENT OF DIARRHEABowling Green [employer] Other Summary Purpose Family History No Family History Records Found Relationship Condition Age at Onset Recorded Date/T shoshana Not Specified Congenital polycystic kidney Unknown Diabetes mellitus Unknown Myocardial infarction Unknown Family history of co ronary artery bypass surgery Unknown Advance Directives No Advanced Directives Records Found Advance Directive Response Recorded Date/ Time Advance Directives No January 06, 2017 11:20am Chief Complaint and Reason for Visit Chief Complaint Diarrhea, Fecal Urge ncy Chief Complaint Diarrhea, Fecal Urge ncy Diarrhea, Fecal Urgency Reason for Visit Diarrhea Additional Source Comments (unrecognized sect ion and content) No Status Records FoundNo Status Records FoundNo Status Records FoundNo Status Records FoundNo Status Records Found INFORMATION SOURCE (unrecogn ized section and content) DATE CREATED AUTHOR 07/13/2019 [facility] DATE CREATED AUTHOR AUTHOR'S ORGANIZ ATION 11/02/2021 [facility] DATE CREATED AUTHOR AUTHOR'S ORGANIZ ATION 03/12/2022 [facility] DATE CREATED AUTHOR AUTHOR'S ORGANIZ ATION 10/18/2022 [facility] DATE CREATED AUTHOR AUTHOR'S ORGANIZ ATION 05/04/2023 [facility] Care Teams (unrecognized sec tion and content) Team Status: Inactive Member Role Status Dates Jericho Mccarthy MD Primary Care Provider Active Tj Wells MD Attending Provider Active Team Status: Active Member Role Status Dates Jericho Naderer , MD Primary Care Provider Active Goals (unrecognized section and content) Goals may be documented in a n alternate section FOR RECORDS PERTAINING TO PATIENTS WHO ARE OR HAVE BEEN ENROLLED IN A CHEMICAL DEPENDENCY/SUBSTANCEABUSE PROGRAM, SOME INFORMATION MAY BE OMITTED. This clinical summary was aggregated from multiple sources. Caution should be exercised in using it in the provision of clinical care. This summary normalizes information from multiple sources, and as a consequence, information in this document may materially change the coding, format and clinical context of patient data. In addition, data may be omitted in some cases. CLINICAL DECISIONS SHOULD BE BASED ON THE PRIMARY CLINICAL RECORDS. [facility] [employer] [facility]. provides no warranty or guarantee of the accuracy or completeness of information in this document.
[2023-05-09 07:40] LABS: Basophils Percent Auto 0.7 % (0.2-2.0); Eosinophils Absolute Auto 0.2 10^3/uL (0.0-0.7); Eosinophils Percent Auto 2.6 % (0.9-7.0); Hematocrit 33.7 % (42.0-54.0); Hemoglobin 10.6 g/dL (14.0-18.0); Immature Granulocytes Abs Auto 0.05 10^3/uL (0.00-0.03); Immature Granulocytes Pct Auto 0.8 % (0.0-0.5); Lymphocytes Absolute Auto 0.9 10^3/uL (1.2-3.8); Mean Corpuscular HGB Conc 31.5 g/dL (29.9-35.2); Mean Corpuscular Hemoglobin 29.3 pg (25.9-34.0); Mean Corpuscular Volume 93.1 fL (80.0-94.0); Mean Platelet Volume 8.9 fL (9.5-13.5); Monocytes Absolute Auto 0.7 10^3/uL (0.3-0.8); Monocytes Percent Auto 11.9 % (1.7-12.0); Neutrophils Absolute Auto 4.3 10^3/uL (1.4-6.5); Platelet Count 359 10^3/uL (150-450); Red Blood Count 3.62 10^6/uL (4.70-6.10); Red Cell Distribution Width 13.2 % (11.0-15.0); White Blood Count 6.1 10^3/uL (4.0-11.0)
[2023-05-09 10:51] LABS: Alanine Aminotransferase 29 U/L (16-63); Albumin Globulin Ratio 1.1; Albumin Level 3.4 g/dL (3.4-5.0); Alkaline Phosphatase 97 U/L (46-116); Anion Gap 12.1; Aspartate Amino Transferase 18 U/L (15-37); BUN Creatinine Ratio 14.3; Bilirubin Direct 0.1 mg/dL (0.0-0.2); Bilirubin Total 0.3 mg/dL (0.2-1.0); Calcium 8.8 mg/dL (8.5-10.1); Carbon Dioxide 28.4 mmol/L (21.0-32.0); Chloride 102 mmol/L (98-107); Estimated GFR (African America >60 (>=60); Estimated GFR (Non-African Ame >60 (>=60); Globulin 3.2 g/dL; Glucose 142 mg/dL (74-106); Magnesium 1.2 mg/dL (1.8-2.4); Phosphorus 3.9 mg/dL (2.6-4.7); Potassium 4.5 mmol/L (3.5-5.1); Sodium 138 mmol/L (136-145); Total Protein 6.6 g/dL (6.4-8.2)
[2023-05-12 01:06] LABS: Tacrolimus (FK506), Blood 5.1 ng/mL (2.0-20.0)
== END 2023-05-09 06:59 | disposition home or self-care (01) ==
LOC: LAB 07:01
PROVIDERS: PCP Family Medicine
DX: R73.02 Impaired glucose tolerance (oral) (principal); Z94.0 Kidney transplant status
CPT/HCPCS: 36415; 80053; 80197; 82248; 83735; 84100; 84550; 85025

== ENCOUNTER 2023-07-08 07:02 | Outpatient (OUT) | payer MEDICARE, OTHER, SELFPAY ==
--- OUTSIDE RECORDS SUMMARY | 2023-07-08 07:06 | XMS_ITS | CCD ---
Author Name Unknown Address [address] [place] [address] Organization [facility] Care Team Providers Care Picking Supervisor Name Role Phone Tj Wells Unavailable MD Jericho Mccarthy Primary Care Provider [phone] MD Tj Wells Attending Provider [phone] Tj Wells Attending Unavailabl e NadJericho lofton Primary Care Unavailable Tj Wells Admitting Unavailabl tyson Wells, Tj Sullivan Admitting Unavailabl e Tj Wells Attending Unavailabl e Jericho Mccarthy Primary Care Unavailable MISC, DR ALVAREZ Attending Unavailable MISC, DR ALVAREZ Admitting Unavailable MISC, DR ALVAREZ Consulting Unavailable NADERER, DR JERICHO Floyd Primary Care Unavailable PERRYVILLE, DR MERRITT Consulting Unavailable PERRYVILLE, DR MERRITT Attending Unavailable PERRYVILLE, DR MERRITT Admitting Unavailable NADERER, DR FERGUSON A Primary Care Unavailable MISC, DR ALVAREZ Attending Unavailable MISC, DR ALVAREZ Admitting Unavailable NADERER, DR JERICHO Floyd Primary Care Unavailable MISC, DR ALVAREZ Consulting Unavailable PERRYVILLE, DR MERRITT Consulting Unavailable PERRYVILLE, DR MERRITT Attending Unavailable NADERER, DR JERICHO Floyd Primary Care Unavailable PERRYVILLE, DR MERRITT Admitting Unavailable MISC, DR ALVAREZ Attending Unavailable MISC, DR ALVAREZ Admitting Unavailable NADERER, DR JERICHO Floyd Primary Care Unavailable MISC, DR ALVAREZ Consulting Unavailable MISC, DR ALVAREZ Consulting Unavailable MISC, DR ALVAREZ Attending Unavailable NADERER, DR FERGUSON A Primary Care Unavailable MISC, DR ALVAREZ Admitting Unavailable MISC, DR ALVAREZ Admitting Unavailable MISC, DR ALVAREZ Consulting Unavailable MISC, DR ALVAREZ Attending Unavailable NADERER, DR JERICHO Floyd Primary Care Unavailable MISC, DR ALVAREZ Admitting Unavailable MISC, DR ALVAREZ Consulting Unavailable NADERER, DR FERGUSON A Primary Care Unavailable MISC, DR ALVAREZ Attending Unavailable MISC, DR ALVAREZ Admitting Unavailable MISC, DR ALVAREZ Consulting Unavailable NADERER, DR JERICHO Floyd Primary Care Unavailable MISC, DR ALVAREZ Attending Unavailable FABIO, DR JERICHO Floyd Primary Care Unavailable HAY ., DR WINTERS Consulting Unavailable HAY ., DR WINTERS Attending Unavailable HAY ., DR WINTERS Admitting Unavailable MISC, DR ALVAREZ Admitting Unavailable MISC, DR ALVAREZ Consulting Unavailable FABIO, DR JERICHO Floyd Primary Care Unavailable MISC, DR ALVAREZ Attending Unavailable MISC, DR ALVAREZ Attending Unavailable MISC, DR ALVAREZ Admitting Unavailable MISC, DR ALVAREZ Consulting Unavailable FABIO, DR JERICHO Floyd Primary Care Unavailable FABIO, JERICHO Attending Unavailable MERZA, NOORALDIN Referring Unavailable CRISENJERICHO MANCUSO Attending Unavailable MENDY CLEMONS Referring Unavailable CHRISTIAN, GYPSY Admitting Unavailable HORANIESTHER Attending Unavailable MOUKABENJA MOHR Attending Unavailable MARIO EGAN Attending Unavailable CRISENBERJuju, JERICHO Attending Unavailable HORANI, ESTHER Referring Unavailable MERZA, NOORALDIN Referring Unavailable Allergies Allergy Classification Reported Allergen(s) Allergy Type Date of Onset Reaction(s) Facility (1 source) NSAIDs; Translations: [NSAIDS (NON-STEROIDAL ANTI-INFLAMMATOR Y DRUG)] Propensity to adverse reactions to drug (disorder) [facility] Repository Medications Current Medications Medication [...] 2 MCG IVP MWF DURING DIALYSIS PER [facility] (08/26/18) 5 ml sodium ferric gluconate complex 12.5 mg/ml injection (2 sources) Start: 07-08-2017 End: 03-05-2022 Sodium Ferric Gluconat-Sucrose (Ferrlecit) 62.5 mg/5 mL Solution Discontinued 125 MG IV Q14D July 08, 2017 1:00am March 05, 2022 7:07am RECEIVES FERRLECIT 125MG IVP EVERY OTHER FRIDAY (DOSE DUE 08/26/18 PER [facility]) Problems Active Problems Problem Classification [...] disease (2 sources) Atherosclerotic heart disease [place] coronary artery without angina pectoris; Translations: [Atherosclerotic heart disease of [place] coronary artery without angina pectoris] Onset: 04-22-20 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) [...] [Encounter for preprocedural laboratory examination] Onset: 03-01-20 22 Unclassified (1 source) CONTACT W/AND (SUSP) EXPOS [...] 11-16-2021 Episodic Other aftercare (1 source) Other roasterman (current) drug therapy; Translations: [OTH DETENTION CURRENT DRUG THERAPY] Onset: 03-10-2022 Episodic Other [...] Test Name Value Interpretation Reference Range Facility Orders Onlyon 06-11-2023 Orders Only [id number] Roger Suarez 1950 M Date Provider Department Center 06/11/2023 Shaylee-JERICHO ABAD [facility] Family History Problem Relation Age of Onset Diabetes Mother Hypertension Mother Coronary artery disease Mother Other Mother Cystic kidney disease Mother Hypertension Father Skin cancer Father Cystic kidney disease Father Cystic kidney disease Sister Heart disease Brother ALS Brother Cystic kidney disease Brother Family Status - Relation Status Age at Mother Father Sister Brother [facility] BILIRUBIN, DIRECTon 05-19-19 24 Magnesium [Mass/Vol] 0.1 mg/dL Normal 0-0.2 [facility] Comment on above: Performed By: #### L [id number] #### [facility] ([facility]) [address] [place] [address] CBC WITH AUTO DIFFERENTIALon 05-19-2023 Basophils (Bld) [#/Vol] 0.03 10*3/uL Normal 0.00-0.20 [facility] Comment on above: Performed By: #### L [id number] #### [facility] ([facility]) [address] [place] [address] Basophils/100 WBC (Bld) 0.4 % Normal 0.0-1.0 [facility] Comment on above: Performed By: #### L [id number] #### [facility] ([facility]) [address] [place] [address] Eosinophils (Bld) [#/Vol] 0.18 10*3/uL Normal 0.00-0.50 [facility] Comment on above: Performed By: #### L [id number] #### [facility] ([facility]) [address] [place] [address] Eosinophils/100 WBC (Bld) 2.7 % Normal 0.0-6.0 [facility] Comment on above: Performed By: #### L [id number] #### [facility] ([facility]) [address] [place] [address] Erythrocyte distribution width (RBC) [Ratio] 13.7 % Normal 11.5-15.0 [facility] Comment on above: Performed By: #### L [id number] #### [facility] ([facility]) [address] [place] [address] ERYTHROCYTE MEAN CORPUSCULAR HEMOGLOBIN CONCENTRATION (G/DL) BY AUTOMATED 32.9 g/dL Normal 32.0-35.0 [facility] Comment on above: Performed By: #### L [id number] #### [facility] ([facility]) [address] [place] [address] Hematocrit (Bld) [Volume fraction] 34.0 % Low 39.0-55.0 [facility] Comment on above: Performed By: #### L [id number] #### [facility] ([facility]) [address] [address] Hemoglobin (Bld) [Mass/Vol] 11.2 g/dL Low 13.0-17.0 [facility] Comment on above: Performed By: #### L [id number] #### [facility] ([facility]) [address] [address] Immature granulocytes (Bld) [#/Vol] 0.02 10*3/uL Normal 0.00-0.20 [facility] Comment on above: Performed By: #### L [id number] #### [facility] ([facility]) [address] [place] [address] Immature granulocytes/100 WBC (Bld) 0.3 % Normal 0.0-1.0 [facility] Comment on above: Performed By: #### L [id number] #### [facility] [address] [place] [address] Lymphocytes (Bld) [#/Vol] 0.80 10*3/uL Low 1.20-4.00 [facility] Comment on above: Performed By: #### L [id number] #### [facility] ([facility]) [address] [place] [address] Lymphocytes/100 WBC (Bld) 11.9 % Low 20.0-45.0 [facility] Comment on above: Performed By: #### L [id number] #### [facility] ([facility]) [address] [place] [address] MCH (RBC) [Entitic mass] 29.4 pg Normal 27.0-33.0 [facility] Comment on above: Performed By: #### L [id number] #### [facility] ([facility]) [address] [place] [address] MCV (RBC) [Entitic vol] 89.2 fL Normal 82.0-98.0 [facility] Comment on above: Performed By: #### L [id number] #### [facility] ([facility]) [address] [place] [address] Monocytes (Bld) [#/Vol] 0.54 10*3/uL Normal 0.10-1.00 [facility] Comment on above: Performed By: #### L [id number] #### [facility] ([facility]) [address] [place] [address] Monocytes/100 WBC (Bld) 8.0 % Normal 5.0-12.0 [facility] Comment on above: Performed By: #### L [id number] #### [facility] ([facility]) [address] [place] [address] Neutrophils (Bld) [#/Vol] 5.14 10*3/uL Normal 1.60-7.60 [facility] Comment on above: Performed By: #### L [id number] #### [facility] ([facility]) [address] [place] [address] Neutrophils/100 WBC (Bld) 76.7 % High 40.0-72.0 [facility] Comment on above: Performed By: #### L [id number] #### [facility] ([facility]) [address] [place] [address] NRBC (PER 100 WBCS) BY AUTOMATED COUNT 0.0 % Normal 0 [facility] Comment on above: Performed By: #### L [id number] #### [facility] ([facility]) [address] [place] [address] PLATELETS (10*3/UL) IN BLOOD AUTOMATED COUNT 271 10*3/uL Normal 150-400 [facility] Comment on above: Performed By: #### L [id number] #### [facility] ([facility]) [address] [place] [address] RBC (Bld) [#/Vol] 3.81 10*6/uL Low 4.20-5.70 [facility] Comment on above: Performed By: #### L [id number] #### [facility] ([facility]) [address] [place] [address] WBC (Bld) [#/Vol] 6.71 10*3/uL Normal 4.00-10.60 [facility] Comment on above: Performed By: #### L [id number] #### [facility] ([facility]) [address] [place] [address] COMPREHENSIVE METABOLIC PANE Claudio 05-19-2023 Albumin [Mass/Vol] 4.5 g/dL Normal 3.5-5.7 [facility] Comment on above: Performed By: #### L [id number] #### [facility] ([facility]) [address] [place] [address] ALP [Catalytic activity/Vol] 85 U/L Normal 34-104 [facility] Comment on above: Performed By: #### L [id number] #### [facility] ([facility]) [address] [place] [address] ALT [Catalytic activity/Vol] 10 U/L Normal 7-52 [facility] Comment on above: Performed By: #### L [id number] #### [facility] ([facility]) [address] [place] [address] Anion gap [Moles/Vol] 15 mmol/L Normal 7-20 [facility] Comment on above: Performed By: #### L [id number] #### [facility] ([facility]) [address] [place] [address] AST [Catalytic activity/Vol] 13 U/L Normal 13-39 [facility] Comment on above: Performed By: #### L [id number] #### [facility] [address] [place] [address] Bilirubin [Mass/Vol] 0.5 mg/dL Normal 0.3-1.0 [facility] Comment on above: Performed By: #### L [id number] #### [facility] ([facility]) [address] [place] [address] Calcium [Mass/Vol] 9.1 mg/dL Normal 8.6-10.3 [facility] Comment on above: Performed By: #### L [id number] #### [facility] ([facility]) [address] [place] [address] Chloride [Moles/Vol] 99 mmol/L Normal 98-107 [facility] Comment on above: Performed By: #### L [id number] #### [facility] ([facility]) [address] [place] [address] CO2 [Moles/Vol] 22 mmol/L Normal 21-31 [facility] Comment on above: Performed By: #### L [id number] #### [facility] ([facility]) [address] [place] [address] Creatinine [Mass/Vol] 0.85 mg/dL Normal 0.70-1.30 [facility] Comment on above: Performed By: #### L [id number] #### [facility] ([facility]) [address] [place] [address] GLOMERULAR FILTRATION RATE ML/MIN/1.73 SQ M.PREDICTED 92.9 mL/min/1.73m*2 Normal >60.0 [facility] Comment on above: Result Comment: [facility]???s estimated glomerular filtration rate (eGFR) [...] group of individuals. Performed By: #### L [id number] #### [facility] ([facility]) [address] [place] [address] Glucose [Mass/Vol] 107 mg/dL High 70-100 [facility] Comment on above: Performed By: #### L [id number] #### [facility] ([facility]) [address] [place] [address] Potassium [Moles/Vol] 4.9 mmol/L Normal 3.5-5.1 [facility] Comment on above: Performed By: #### L [id number] #### [facility] ([facility]) [address] [place] [address] Protein [Mass/Vol] 6.7 g/dL Normal 6.0-8.3 [facility] Comment on above: Performed By: #### L [id number] #### [facility] ([facility]) [address] [place] [address] Sodium [Moles/Vol] 131 mmol/L Low 136-145 [facility] Comment on above: Performed By: #### L [id number] #### [facility] ([facility]) [address] [place] [address] Urea nitrogen [Mass/Vol] 15 mg/dL Normal 7-25 [facility] Comment on above: Performed By: #### L [id number] #### [facility] ([facility]) [address] [place] [address] UREA NITROGEN/CREATININE (MASS RATIO) IN SER/PLAS 17.6 Normal [facility] Comment on above: Performed By: #### L [id number] #### [facility] ([facility]) [address] [place] [address] Follow-Upon 05-19-2023 Follow-Up [id number] ErickRoger Tyson 1950 M Date Provider Department Center 05/19/2023 124-JERICHO ABAD TXLazara None Family History Problem Relation Age of Onset Diabetes Mother Hypertension Mother Coronary artery disease Mother Other Mother Cystic kidney disease Mother Hypertension Father Skin cancer Father Cystic kidney disease Father Cystic kidney disease Sister Heart disease Brother ALS Brother Cystic kidney disease Brother Family Status - Relation Status Age at Mother Father Sister Brother Level of Service:94377 SD OFFICE/OUTPATIENT ESTABLISHED MOD MDM 30 MIN Reason for Visit and Comments: Kidney Follow-up [[id number]] - No concerns [facility] LIPID PANELon 05-19-2023 CHOL/HDL 1.9 mg/dL [facility] Comment on above: Performed By: #### L [id number] ####[facility] ([facility])[address] [place] [address] Cholesterol [Mass/Vol] 88 mg/dL Low 120-200 [facility] Comment on above: Performed By: #### L [id number] ####[facility] ([facility])[address] [place] [address] Magnesium [Mass/Vol] 53 mg/dL Normal 40-149 [facility] Comment on above: Result Comment: TRIG LYCERIDE REFERENCE RANGE: 20 YEARS AND OLDER CARDIOVASCULAR RISK LESS THAN 150 mg/dL LOW RISK 150 TO 199 mg/dL BORDERLINE RISK 200 mg/dL AND GREATER HIGH RISK Performed By: #### L [id number] ####[facility] ([facility])[address] [place] [address] Magnesium [Mass/Vol] 30 mg/dL Normal 0-160 [facility] Comment on above: Performed By: #### L [id number] ####[facility] ([facility])[address] [place] [address] Magnesium [Mass/Vol] 47 mg/dL Normal 23-92 [facility] Comment on above: Performed By: #### L [id number] ####[facility] ([facility])[address] [place] [address] NON HDL CHOL. (LDL+VLDL) 41 [facility] Comment on above: Performed By: #### L [id number] ####[facility] ([facility])[address] [place] [address] TOTAL VLDL-C 11 mg/dL Normal 0-40 [facility] Comment on above: Performed By: #### L [id number] ####[facility] ([facility])[address] [facility] [place] [address] Labon 05-19-2023 Lab [id number] Roger Suarez 1950 M Date Provider Department Center 05/19/202398831-IJJ DRAW STATION KXT Draw [facility] Family History Problem Relation Age of Onset Diabetes Mother Hypertension Mother Coronary artery disease Mother Other Mother Cystic kidney disease Mother Hypertension Father Skin cancer Father Cystic kidney disease Father Cystic kidney disease Sister Heart disease Brother ALS Brother Cystic kidney disease Brother Family Status - Relation Status Age at Mother Father Sister Brother [facility] MAGNESIUMon 05-19-2023 Magnesium [Mass/Vol] 1.3 mg/dL Low 1.9-2.7 [facility] Comment on above: Performed By: #### L [id number] #### [facility] ([facility]) [address] [place] [address] Orders Onlyon 05-19-2023 Orders Only [id number] Roger Suarez 1950 M Date Provider Department Center 05/19/2023 Anamika-LINK SUAREZ TXP None Family History Problem Relation Age of Onset Diabetes Mother Hypertension Mother Coronary artery disease Mother Other Mother Cystic kidney disease Mother Hypertension Father Skin cancer Father Cystic kidney disease Father Cystic kidney disease Sister Heart disease Brother ALS Brother Cystic kidney disease Brother Family Status - Relation Status Age at Mother Father Sister Brother [facility] PHOSPHORUSon 05-19-2023 Magnesium [Mass/Vol] 4.5 mg/dL Normal 2.5-5.0 [facility] Comment on above: Performed By: #### L [id number] #### [facility] ([facility]) [address] [place] [address] TACROLIMUS LEVELon Tacrolimus (Bld) [Mass/Vol] 6.0 ng/mL Normal 5.0-20.0 [facility] Comment on above: Result Comment: The [employer] Tacrolimus assay is a delayed one-step immunoassay for the quantitative determination of tacrolimus in human whole blood using the chemiluminescent microparticle immunoassay (CMIA) technology with flexible assay protocols, referred to as Chemiflex. Performed By: #### L [id number] #### [facility] ([facility]) [address] [place] [address] TESTOSTERONE, FREE AND TOTAL , AND SHBGon 05-19-2023 SEX HORMONE BINDING GLOBULIN (NMOL/L) IN SER/PLAS 61 nmol/L Normal 11-80 [facility] Comment on above: Performed By: #### L [id number] #### [facility] ([facility]) [address] [place] [address] TESTOSTERONE (NG/DL) IN SER/PLAS 440 ng/dL Normal 220-1000 [facility] Comment on above: Performed By: #### L [id number] #### [facility] ([facility]) [address] [place] [address] TESTOSTERONE FREE (NG/ML) IN SER/PLAS 59.5 pg/mL Normal 47-244 [facility] Comment on above: Result Comment: The concentration of free testosterone is derived from a mathematical expression based on the constant for the binding of testosterone to albumin and/or sex hormone binding globulin. Test Performed by [employer] [address] [place] [id number] - Released 05/19/2023 15:01 Performed By: #### L [id number] #### [facility] [address] [place] [address] URIC ACIDon 05-19-2023 Magnesium [Mass/Vol] 6.2 mg/dL Normal 4.4-7.6 [facility] Comment on above: Performed By: #### L [id number] #### [facility] [address] [place] [address] Documentationon 05-14-2023 Documentation [id number] Roger Suarez 1950 Date Provider Department Center 05/14/2023 3373-LAQUITA COURTNEY TXP None Family History Problem Relation Age of Onset Diabetes Mother Hypertension Mother Coronary artery disease Mother Other Mother Cystic kidney disease Mother Hypertension Father Skin cancer Father Cystic kidney disease Father Cystic kidney disease Sister Heart disease Brother ALS Brother Cystic kidney disease Brother Family Status - Relation Status Age at Mother Father Sister Brother [facility] 30on 04-30-2023 30 Daily Case Managemen t Update Multidisciplinary rounds have been completed. Barriers to Discharge: MR for DC Home to follow up with [employer] Back Tender on Friday. New Diabetic Supply Scripts have been faxed to his pharmacy in [place], [place]. Diet: Dietary Orders (From admission, onward) Start Ordered 04/29/23 171 Special Kitchen Request Once Comments: Please send a salad with ham, roque, shredded cheddar cheese and onions with yakut dressing. Layered chocolate cake and a diet cristiano vincenzo. 04/29/23 17104/28/23 1858 Regular Diet HF/Cirrhosis/CKD/ESRD (2gm NA); Diabetic Male (carb 60g/meal) Diet effective now Question Answer Comment Room Service? Yes Sodium restriction: HF/Cirrhosis/CKD/ESRD (2gm NA) Carbohydrate restriction: Diabetic Male (carb 60g/meal) 04/28/23 185 Physician Expected Discharge Date: 04/30/2023 Discharge Delays: [...] Consult? Answer: New diagnosis DM2 04/30/23 1109 [facility] 30 Problem: Pain - Adul t Goal: [...] and maintained or improved Outcome: Progressing [facility] BASIC METABOLIC PANELon 12-2 -2022 Anion gap [Moles/Vol] 12 mmol/L Normal 7-20 [facility] Comment on above: Performed By: #### L [id number] #### [facility] ([facility]) [address] [place] [address] Calcium [Mass/Vol] 8.7 mg/dL Normal 8.6-10.3 [facility] Comment on above: Performed By: #### L [id number] #### [facility] ([facility]) [address] [place] [address] Chloride [Moles/Vol] 102 mmol/L Normal 98-107 [facility] Comment on above: Performed By: #### L [id number] #### [facility] ([facility]) [address] [place] [address] CO2 [Moles/Vol] 24 mmol/L Normal 21-31 [facility] Comment on above: Performed By: #### L [id number] #### [facility] ([facility]) [address] [place] [address] Creatinine [Mass/Vol] 0.80 mg/dL Normal 0.70-1.30 [facility] Comment on above: Performed By: #### L [id number] #### [facility] ([facility]) [address] [place] [address] GLOMERULAR FILTRATION RATE ML/MIN/1.73 SQ M.PREDICTED 94.6 mL/min/1.73m*2 Normal >60.0 [facility] Comment on above: Result Comment: [facility]???s estimated glomerular filtration rate (eGFR) [...] group of individuals. Performed By: #### L [id number] #### [facility] ([facility]) [address] [place] [address] Glucose [Mass/Vol] 160 mg/dL High 70-100 [facility] Comment on above: Performed By: #### L [id number] #### [facility] ([facility]) [address] [place] [address] Potassium [Moles/Vol] 4.2 mmol/L Normal 3.5-5.1 [facility] Comment on above: Performed By: #### L [id number] #### [facility] ([facility]) [address] [place] [address] Sodium [Moles/Vol] 134 mmol/L Low 136-145 [facility] Comment on above: Performed By: #### L [id number] #### [facility] ([facility]) [address] [place] [address] Urea nitrogen [Mass/Vol] 14 mg/dL Normal 7-25 [facility] Comment on above: Performed By: #### L [id number] #### [facility] ([facility]) [address] [place] [address] UREA NITROGEN/CREATININE (MASS RATIO) IN SER/PLAS 17.5 [facility] Comment on above: Performed By: #### L [id number] #### [facility] ([facility]) [address] [place] [address] CBCon 04-30-2023 Erythrocyte distribution width (RBC) [Ratio] 13.0 % Normal 11.5-15.0 [facility] Comment on above: Performed By: #### L [id number] ####[facility] ([facility])[address] [place] [address] ERYTHROCYTE MEAN CORPUSCULAR HEMOGLOBIN CONCENTRATION (G/DL) BY AUTOMATED 33.9 g/dL Normal 32.0-35.0 [facility] Comment on above: Performed By: #### L [id number] ####[facility] ([facility])[address] [place] [address] Hematocrit (Bld) [Volume fraction] 28.0 % Low 39.0-55.0 [facility] Comment on above: Performed By: #### L [id number] ####[facility] ([facility])[address] [place], [place] [address] Hemoglobin (Bld) [Mass/Vol] 9.5 g/dL Low 13.0-17.0 [facility] Comment on above: Performed By: #### L [id number] ####[facility] ([facility])[address] [place] [address] MCH (RBC) [Entitic mass] 29.3 pg Normal 27.0-33.0 [facility] Comment on above: Performed By: #### L [id number] ####[facility] ([facility])[address] [place] [address] MCV (RBC) [Entitic vol] 86.4 fL Normal 82.0-98.0 [facility] Comment on above: Performed By: #### L [id number] ####[facility] ([facility])[address] [place] [address] PLATELETS (10*3/UL) IN BLOOD AUTOMATED COUNT 232 10*3/uL Normal 150-400 [facility] Comment on above: Performed By: #### L [id number] ####[facility] ([facility])[address] [place] [address] RBC (Bld) [#/Vol] 3.24 10*6/uL Low 4.20-5.70 [facility] Comment on above: Performed By: #### L [id number] ####[facility] ([facility])[address] [place] [address] WBC (Bld) [#/Vol] 5.11 10*3/uL Normal 4.00-10.60 [facility] Comment on above: Performed By: #### L [id number] ####[facility] ([facility])[address] [place] [address] MAGNESIUMon 04-30-2023 Magnesium [Mass/Vol] 1.2 mg/dL Low 1.9-2.7 [facility] Comment on above: Performed By: #### L [id number] #### [facility] ([facility]) [address] [place] [address] PHOSPHORUSon 04-30-2023 Magnesium [Mass/Vol] 3.3 mg/dL Normal 2.5-5.0 [facility] Comment on above: Performed By: #### L [id number] #### [facility] ([facility]) [address] [place] [address] POCT GLUCOSE METER UNSOLICIT ED RESULTSon 04-30-2023 Glucose [Mass/Vol] 251 mg/dL High 70-105 [facility] Comment on above: Order Comment: Waive d Testing in the ED is performed under the ED CLIA certificate #[id number]. Result Comment: [email or web address] Performed By: #### L [id number] #### [facility] ([facility]) [address] [place] [address] Glucose [Mass/Vol] 146 mg/dL High 70-105 [facility] Comment on above: Order Comment: Waive d Testing in the ED is performed under the ED CLIA certificate #[id number]. Result Comment: [email or web address] Performed By: #### L [id number] #### [facility] ([facility]) [address] [place] [address] TACROLIMUS LEVELon Tacrolimus (Bld) [Mass/Vol] 6.1 ng/mL Normal 5.0-20.0 [facility] Comment on above: Result Comment: The [employer] Tacrolimus assay is a delayed one-step immunoassay for the quantitative determination of tacrolimus in human whole blood using the chemiluminescent microparticle immunoassay (CMIA) technology with flexible assay protocols, referred to as Chemiflex. Performed By: #### L [id number] #### [facility] ([facility]) [address] [place] [address] 30on 04-29-2023 30 Daily Case Managemen t [...] roque, shredded cheddar cheese and onions with yakut dressing. Layered chocolate cake and a diet [...] of Consultation Consultation and Management 04/27/23 2313 Normal [facility] BASIC METABOLIC PANELon 04-11 Anion gap [Moles/Vol] 13 mmol/L Normal 7-20 [facility] Comment on above: Performed By: #### L [id number] #### [facility] ([facility]) [address] [place] [address] Calcium [Mass/Vol] 8.7 mg/dL Normal 8.6-10.3 [facility] Comment on above: Performed By: #### L [id number] #### [facility] [address] [place] [address] Chloride [Moles/Vol] 103 mmol/L Normal 98-107 [facility] Comment on above: Performed By: #### L [id number] #### [facility] ([facility]) [address] [place] [address] CO2 [Moles/Vol] 22 mmol/L Normal 21-31 [facility] Comment on above: Performed By: #### L [id number] #### [facility] ([facility]) [address] [place] [address] Creatinine [Mass/Vol] 0.96 mg/dL Normal 0.70-1.30 [facility] Comment on above: Performed By: #### L [id number] #### [facility] ([facility]) [address] [place] [address] GLOMERULAR FILTRATION RATE ML/MIN/1.73 SQ M.PREDICTED 84.5 mL/min/1.73m*2 Normal >60.0 [facility] Comment on above: Result Comment: [facility]???s estimated glomerular filtration rate (eGFR) [...] group of individuals. Performed By: #### L [id number] #### [facility] ([facility]) [address] [place] [address] Glucose [Mass/Vol] 175 mg/dL High 70-100 [facility] Comment on above: Performed By: #### L [id number] #### [facility] ([facility]) [address] [place] [address] Potassium [Moles/Vol] 4.5 mmol/L Normal 3.5-5.1 [facility] Comment on above: Performed By: #### L [id number] #### [facility] ([facility]) [address] [place] [address] Sodium [Moles/Vol] 133 mmol/L Low 136-145 [facility] Comment on above: Performed By: #### L [id number] #### [facility] ([facility]) [address] [place] [address] Urea nitrogen [Mass/Vol] 29 mg/dL High 7-25 [facility] Comment on above: Performed By: #### L [id number] #### [facility] ([facility]) [address] [place] [address] UREA NITROGEN/CREATININE (MASS RATIO) IN SER/PLAS 30.2 Normal [facility] Comment on above: Performed By: #### L [id number] #### [facility] ([facility]) [address] [place] [address] Anion gap [Moles/Vol] 16 mmol/L Normal 7-20 [facility] Comment on above: Performed By: #### L [id number] #### [facility] ([facility]) [address] [place] [address] Calcium [Mass/Vol] 8.7 mg/dL Normal 8.6-10.3 [facility] Comment on above: Performed By: #### L [id number] #### [facility] ([facility]) [address] [place] [address] Chloride [Moles/Vol] 102 mmol/L Normal 98-107 [facility] Comment on above: Performed By: #### L [id number] #### [facility] ([facility]) [address] [place] [address] CO2 [Moles/Vol] 19 mmol/L Low 21-31 [facility] Comment on above: Performed By: #### L [id number] #### [facility] ([facility]) [address] [place] [address] Creatinine [Mass/Vol] 1.02 mg/dL Normal 0.70-1.30 [facility] Comment on above: Performed By: #### L [id number] #### [facility] ([facility]) [address] [place] [address] GLOMERULAR FILTRATION RATE ML/MIN/1.73 SQ M.PREDICTED 78.6 mL/min/1.73m*2 Normal >60.0 [facility] Comment on above: Result Comment: [facility]???s estimated glomerular filtration rate (eGFR) [...] group of individuals. Performed By: #### L [id number] #### [facility] ([facility]) [address] [place] [address] Glucose [Mass/Vol] 206 mg/dL High 70-100 [facility] Comment on above: Performed By: #### L [id number] #### [facility] ([facility]) [address] [place] [address] Potassium [Moles/Vol] 4.8 mmol/L Normal 3.5-5.1 [facility] Comment on above: Performed By: #### L [id number] #### [facility] ([facility]) [address] [place] [address] Sodium [Moles/Vol] 132 mmol/L Low 136-145 [facility] Comment on above: Performed By: #### L [id number] #### [facility] ([facility]) [address] [place] [address] Urea nitrogen [Mass/Vol] 31 mg/dL High 7-25 [facility] Comment on above: Performed By: #### L [id number] #### [facility] ([facility]) [address] [place] [address] UREA NITROGEN/CREATININE (MASS RATIO) IN SER/PLAS 30.4 Normal [facility] Comment on above: Performed By: #### L [id number] #### [facility] ([facility]) [address] [place] [address] POCT GLUCOSE METER UNSOLICIT ED RESULTSon 04-29-2023 Glucose [Mass/Vol] 151 mg/dL High 70-105 [facility] Comment on above: Order Comment: Waive d Testing in the ED is performed under the ED CLIA certificate #[id number]. Result Comment: [email or web address] dic Performed By: #### L [id number] #### [facility] ([facility]) [address] [facility] [address] Glucose [Mass/Vol] 166 mg/dL High 70-105 [facility] Comment on above: Order Comment: Waive d Testing in the ED is performed under the ED CLIA certificate #[id number]. Result Comment: lzar ate Performed By: #### L [id number] #### [facility] ([facility]) [address] [facility] [place] [address] Glucose [Mass/Vol] 147 mg/dL High 70-105 [facility] Comment on above: Order Comment: Waive d Testing in the ED is performed under the ED CLIA certificate #[id number]. Result Comment: [email or web address] Performed By: #### L [id number] #### [facility] ([facility]) [address] [place] [address] Glucose [Mass/Vol] 145 mg/dL High 70-105 [facility] Comment on above: Order Comment: Waive d Testing in the ED is performed under the ED CLIA certificate #[id number]. Result Comment: [email or web address] Performed By: #### L [id number] #### [facility] ([facility]) [address] [place] [address] TACROLIMUS LEVELon 3 Tacrolimus (Bld) [Mass/Vol] 8.6 ng/mL Normal 5.0-20.0 [facility] Comment on above: Result Comment: The [employer] Tacrolimus assay is a delayed one-step immunoassay for the quantitative determination of tacrolimus in human whole blood using the chemiluminescent microparticle immunoassay (CMIA) technology with flexible assay protocols, referred to as Chemiflex. Performed By: #### L [id number] #### [facility] ([facility]) [address] [place] [address] APTTon 04-28-2023 ACTIVATED PARTIAL THROMBOPLASTIN TIME IN PPP BY COAGULATION ASSAY 26.1 Seconds Normal 25.0-35.0 [facility] Comment on above: Result Comment: Clin ical significance of the APTT is questionable in the presence of heparin. Performed By: #### L [id number] #### [facility] ([facility]) [address] [place] [address] B-TYPE NATRIURETIC PEPTIDEon 04-28-2023 Natriuretic peptide B (Bld) [Mass/Vol] 98 pg/mL Normal 0-100 [facility] Comment on above: Performed By: #### L [id number] ####[facility] ([facility])[address] [facility] [place] [address] BASIC METABOLIC PANELon 04-11 Anion gap [Moles/Vol] 17 mmol/L Normal 7-20 [facility] Comment on above: Performed By: #### L [id number] #### [facility] ([facility]) [address] [place] [address] Calcium [Mass/Vol] 8.6 mg/dL Normal 8.6-10.3 [facility] Comment on above: Performed By: #### L [id number] #### [facility] ([facility]) [address] [place] [address] Chloride [Moles/Vol] 102 mmol/L Normal 98-107 [facility] Comment on above: Performed By: #### L [id number] #### [facility] ([facility]) [address] [place] [address] CO2 [Moles/Vol] 20 mmol/L Low 21-31 [facility] Comment on above: Performed By: #### L [id number] #### [facility] ([facility]) [address] [place] [address] Creatinine [Mass/Vol] 1.07 mg/dL Normal 0.70-1.30 [facility] Comment on above: Performed By: #### L [id number] #### [facility] ([facility]) [address] [place] [address] GLOMERULAR FILTRATION RATE ML/MIN/1.73 SQ M.PREDICTED 74.2 mL/min/1.73m*2 Normal >60.0 [facility] Comment on above: Result Comment: [facility]???s estimated glomerular filtration rate (eGFR) [...] group of individuals. Performed By: #### L [id number] #### [facility] ([facility]) [address] [place] [address] Glucose [Mass/Vol] 144 mg/dL High 70-100 [facility] Comment on above: Performed By: #### L [id number] #### [facility] ([facility]) [address] [place] [address] Potassium [Moles/Vol] 4.7 mmol/L Normal 3.5-5.1 [facility] Comment on above: Performed By: #### L [id number] #### [facility] ([facility]) [address] [place] [address] Sodium [Moles/Vol] 134 mmol/L Low 136-145 [facility] Comment on above: Performed By: #### L [id number] #### [facility] ([facility]) [address] [place] [address] Urea nitrogen [Mass/Vol] 34 mg/dL High 7-25 [facility] Comment on above: Performed By: #### L [id number] #### [facility] [address] [place] [address] UREA NITROGEN/CREATININE (MASS RATIO) IN SER/PLAS 31.8 Normal [facility] Comment on above: Performed By: #### L [id number] #### [facility] [address] [place] [address] Anion gap [Moles/Vol] 17 mmol/L Normal 7-20 [facility] Comment on above: Performed By: #### L [id number] #### [facility] ([facility]) [address] [place] [address] Calcium [Mass/Vol] 8.7 mg/dL Normal 8.6-10.3 [facility] Comment on above: Performed By: #### L AB90 #### [facility]) [address] [place] [address] Chloride [Moles/Vol] 100 mmol/L Normal 98-107 [facility] Comment on above: Performed By: #### L AB90 #### [facility] ([facility]) [address] [place] [address] CO2 [Moles/Vol] 19 mmol/L Low 21-31 [facility] Comment on above: Performed By: #### L [id number] #### [facility] ([facility]) [address] [place] [address] Creatinine [Mass/Vol] 1.20 mg/dL Normal 0.70-1.30 [facility] Comment on above: Performed By: #### L AB90 #### [facility] ([facility]) [address] [place] [address] GLOMERULAR FILTRATION RATE ML/MIN/1.73 SQ M.PREDICTED 64.7 mL/min/1.73m*2 Normal >60.0 [facility] Comment on above: Result Comment: [facility]???s estimated glomerular filtration rate (eGFR) [...] group of individuals. Performed By: #### L AB90 #### [facility] ([facility]) [address] [place] [address] Glucose [Mass/Vol] 237 mg/dL High 70-100 [facility] Comment on above: Performed By: #### L [id number] #### [facility] ([facility]) [address] [place] [address] Potassium [Moles/Vol] 4.4 mmol/L Normal 3.5-5.1 [facility] Comment on above: Performed By: #### L [id number] #### [facility] ([facility]) [address] [place] [address] Sodium [Moles/Vol] 132 mmol/L Low 136-145 [facility] Comment on above: Performed By: #### L [id number] #### [facility] ([facility]) [address] [place] [address] Urea nitrogen [Mass/Vol] 40 mg/dL High 7-25 [facility] Comment on above: Performed By: #### L [id number] #### [facility] ([facility]) [address] [place] [address] UREA NITROGEN/CREATININE (MASS RATIO) IN SER/PLAS 33.3 Normal [facility] Comment on above: Performed By: #### L [id number] #### [facility] ([facility]) [address] [place] [address] Anion gap [Moles/Vol] 20 mmol/L Normal 7-20 [facility] Comment on above: Performed By: #### L [id number] #### [facility] ([facility]) [address] [place] [address] Calcium [Mass/Vol] 8.6 mg/dL Normal 8.6-10.3 [facility] Comment on above: Performed By: #### L [id number] #### [facility] ([facility]) [address] [place] [address] Chloride [Moles/Vol] 101 mmol/L Normal 98-107 [facility] Comment on above: Performed By: #### L [id number] #### [facility] ([facility]) [address] [place] [address] CO2 [Moles/Vol] 14 mmol/L Invalid Interpretation Code 21- [facility] Comment on above: Performed By: #### L [id number] #### [facility] ([facility]) [address] [place] [address] Creatinine [Mass/Vol] 1.32 mg/dL High 0.70-1.30 [facility] Comment on above: Performed By: #### L [id number] #### [facility] ([facility]) [address] [place] [address] GLOMERULAR FILTRATION RATE ML/MIN/1.73 SQ M.PREDICTED 57.7 mL/min/1.73m*2 Low >60.0 [facility] Comment on above: Result Comment: [facility]???s estimated glomerular filtration rate (eGFR) [...] group of individuals. Performed By: #### L [id number] #### [facility] ([facility]) [address] [place] [address] Glucose [Mass/Vol] 332 mg/dL High 70-100 [facility] Comment on above: Performed By: #### L [id number] #### [facility] ([facility]) [address] [place] [address] Potassium [Moles/Vol] 4.6 mmol/L Normal 3.5-5.1 [facility] Comment on above: Performed By: #### L [id number] #### [facility] ([facility]) [address] [place] [address] Sodium [Moles/Vol] 130 mmol/L Low 136-145 [facility] Comment on above: Performed By: #### L [id number] #### [facility] ([facility]) [address] [place] [address] Urea nitrogen [Mass/Vol] 43 mg/dL High 7-25 [facility] Comment on above: Performed By: #### L [id number] #### [facility] ([facility]) [address] [place] [address] UREA NITROGEN/CREATININE (MASS RATIO) IN SER/PLAS 32.6 Normal [facility] Comment on above: Performed By: #### L [id number] #### [facility] ([facility]) [address] [place] [address] Anion gap [Moles/Vol] 22 mmol/L High 7-20 [facility] Comment on above: Performed By: #### L [id number] #### [facility] ([facility]) [address] [place] [address] Calcium [Mass/Vol] 8.9 mg/dL Normal 8.6-10.3 [facility] Comment on above: Performed By: #### L [id number] #### [facility] ([facility]) [address] [place] [address] Chloride [Moles/Vol] 99 mmol/L Normal 98-107 [facility] Comment on above: Performed By: #### L [id number] #### [facility] ([facility]) [address] [place] [address] CO2 [Moles/Vol] 13 mmol/L Invalid Interpretation Code 21 [facility] Comment on above: Performed By: #### L [id number] #### [facility] ([facility]) [address] [place] [address] Creatinine [Mass/Vol] 1.33 mg/dL High 0.70-1.30 [facility] Comment on above: Performed By: #### L [id number] #### [facility] ([facility]) [address] [place] [address] GLOMERULAR FILTRATION RATE ML/MIN/1.73 SQ M.PREDICTED 57.1 mL/min/1.73m*2 Low >60.0 [facility] Comment on above: Result Comment: [facility]???s estimated glomerular filtration rate (eGFR) [...] group of individuals. Performed By: #### L [id number] #### [facility] ([facility]) [address] [place] [address] Glucose [Mass/Vol] 324 mg/dL High 70-100 [facility] Comment on above: Performed By: #### L [id number] #### [facility] ([facility]) [address] [place] [address] Potassium [Moles/Vol] 5.7 mmol/L High 3.5-5.1 [facility] Comment on above: Performed By: #### L [id number] #### [facility] ([facility]) [address] [place] [address] Sodium [Moles/Vol] 128 mmol/L Low 136-145 [facility] Comment on above: Performed By: #### L [id number] #### [facility] ([facility]) [address] [place] [address] Urea nitrogen [Mass/Vol] 45 mg/dL High 7-25 [facility] Comment on above: Performed By: #### L [id number] #### [facility] [address] [place] [address] UREA NITROGEN/CREATININE (MASS RATIO) IN SER/PLAS 33.8 Normal [facility] Comment on above: Performed By: #### L [id number] #### [facility] [address] [place] [address] Anion gap [Moles/Vol] 23 mmol/L High 7-20 [facility] Comment on above: Performed By: #### L AB15 ####[facility] ([facility])[address] [place] [address] Calcium [Mass/Vol] 8.8 mg/dL Normal 8.6-10.3 [facility] Comment on above: Performed By: #### L [id number] ####[facility] ([facility])[address] [place] [address] Chloride [Moles/Vol] 99 mmol/L Normal 98-107 [facility] Comment on above: Performed By: #### L [id number] ####[facility] ([facility])[address] [place] [address] CO2 [Moles/Vol] 13 mmol/L Invalid Interpretation Code [facility] Comment on above: Performed By: #### L [id number] ####[facility] ([facility])[address] [place] [address] Creatinine [Mass/Vol] 1.31 mg/dL High 0.70-1.30 [facility] Comment on above: Performed By: #### L [id number] ####[facility] ([facility])[address] [place] [address] GLOMERULAR FILTRATION RATE ML/MIN/1.73 SQ M.PREDICTED 58.2 mL/min/1.73m*2 Low >60.0 [facility] Comment on above: Result Comment: [facility]???s estimated glomerular filtration rate (eGFR) [...] of individuals. Performed By: #### L [id number] ####[facility] ([facility])[address] [place] [address] Glucose [Mass/Vol] 264 mg/dL High 70-100 [facility] Comment on above: Performed By: #### L [id number] ####[facility] ([facility])[address] [place] [address] Potassium [Moles/Vol] 5.7 mmol/L High 3.5-5.1 [facility] Comment on above: Performed By: #### L [id number] ####[facility] ([facility])[address] [place] [address] Sodium [Moles/Vol] 129 mmol/L Low 136-145 [facility] Comment on above: Performed By: #### L [id number] ####[facility] ([facility])[address] [place] [address] Urea nitrogen [Mass/Vol] 44 mg/dL High 7-25 [facility] Comment on above: Performed By: #### L [id number] ####[facility] ([facility])[address] [place] [address] UREA NITROGEN/CREATININE (MASS RATIO) IN SER/PLAS 33.6 [facility] Center Comment on above: Performed By: #### L [id number] ####[facility] ([facility]AKER)[address] [place] [address] Anion gap [Moles/Vol] 15 mmol/L Normal 7-20 [facility] Comment on above: Performed By: #### L [id number] ####[facility] (BEAKER)[address] [place] [address] Performed By: #### L [id number] #### [facility] ([facility]) [address] [place] [address] Calcium [Mass/Vol] 8.6 mg/dL Normal 8.6-10.3 [facility] Comment on above: Performed By: #### L [id number] ####[facility] ([facility]AKER)[address] [place] [address] Performed By: #### L [id number] #### [facility] ([facility]) [address] [place] [address] Chloride [Moles/Vol] 101 mmol/L Normal 98-107 [facility] Comment on above: Performed By: #### L [id number] ####[facility] (BEAKER)[address] [place] [address] Performed By: #### L [id number] #### [facility] ([facility]) [address] [place] [address] CO2 [Moles/Vol] 18 mmol/L Low 21-31 [facility] Comment on above: Performed By: #### L [id number] ####[facility] ([facility]ER)[address] [place] [address] Performed By: #### L [id number] #### [facility] ([facility]ER) [address] [place] [address] Creatinine [Mass/Vol] 1.36 mg/dL High 0.70-1.30 [facility] Comment on above: Performed By: #### L [id number] ####[facility] ([facility]AKER)[address] [place] [address] Performed By: #### L [id number] #### [facility] ([facility]ER) [address] [place] [address] GLOMERULAR FILTRATION RATE ML/MIN/1.73 SQ M.PREDICTED 55.6 mL/min/1.73m*2 Low >60.0 [facility] Comment on above: Result Comment: [facility]???s estimated glomerular filtration rate (eGFR) [...] of individuals. Performed By: #### L [id number] ####[facility] ([facility])[address] [facility] [place] [address] Performed By: #### L [id number] #### [facility] ([facility]) [address] [place] [address] Glucose [Mass/Vol] 149 mg/dL High 70-100 [facility] Comment on above: Performed By: #### L [id number] ####[facility] ([facility])[address] [facility] [place] [address] Performed By: #### L [id number] #### [facility] ([facility]) [address] [place] [address] Potassium [Moles/Vol] 4.8 mmol/L Normal 3.5-5.1 [facility] Comment on above: Performed By: #### L [id number] ####[facility] ([facility])[address] [facility] [facility] [place] [address] Performed By: #### L [id number] #### [facility] ([facility]) [address] [place] [address] Sodium [Moles/Vol] 129 mmol/L Low 136-145 [facility] Comment on above: Performed By: #### L [id number] ####[facility] ([facility])[address] [place] [address] Performed By: #### L [id number] #### [facility] ([facility]) [address] [place] [address] Urea nitrogen [Mass/Vol] 45 mg/dL High 7-25 [facility] Comment on above: Performed By: #### L [id number] ####[facility] ([facility])[address] [place] [address] Performed By: #### L [id number] #### [facility] ([facility]) [address] [place] [address] UREA NITROGEN/CREATININE (MASS RATIO) IN SER/PLAS 33.1 Normal [facility] Comment on above: Performed By: #### L [id number] ####[facility] ([facility])[address] [place] [address] Performed By: #### L [id number] #### [facility] ([facility]) [address] [place] [address] BETA HYDROXYBUTYRATEon 04-28 BETA HYDROXYBUTYRATE (MMOL/L) IN SER/PLAS 6.22 mmol/L High 0.02-0.27 [facility] Comment on above: Performed By: #### L [id number] #### [facility] ([facility]) [address] [place] [address] BLOOD CULTUREon 04-28-2023 Bacteria identified Cx Nom (Bld) No growth at 5 days Normal [facility] Comment on above: Performed By: #### L [id number] ####[facility] ([facility])[address] [place] [address] Bacteria identified Cx Nom (Bld) No growth at 5 days Normal [facility] Comment on above: Order Comment: From a different site than #1. Performed By: #### L [id number] #### [facility] ([facility]) [address] [place] [address] Bacteria identified Cx Nom (Bld) No growth at 5 days Normal [facility] Comment on above: Order Comment: From a different site than #1. Performed By: #### L [id number] #### [facility] ([facility]) [address] [place] [address] CBC WITH AUTO DIFFERENTIALon 04-28-2023 Basophils (Bld) [#/Vol] 0.04 10*3/uL Normal 0.00-0.20 [facility] Comment on above: Performed By: #### L [id number] #### [facility] ([facility]) [address] [place] [address] Basophils/100 WBC (Bld) 0.4 % Normal 0.0-1.0 [facility] Comment on above: Performed By: #### L [id number] #### [facility] ([facility]) [address] [place] [address] Eosinophils (Bld) [#/Vol] 0.09 10*3/uL Normal 0.00-0.50 [facility] Comment on above: Performed By: #### L [id number] #### [facility] ([facility]) [address] [place] [address] Eosinophils/100 WBC (Bld) 1.0 % Normal 0.0-6.0 [facility] Comment on above: Performed By: #### L [id number] #### [facility] ([facility]) [address] [place] [address] Erythrocyte distribution width (RBC) [Ratio] 13.1 % Normal 11.5-15.0 [facility] Comment on above: Performed By: #### L [id number] #### [facility] ([facility]) [address] [place] [address] ERYTHROCYTE MEAN CORPUSCULAR HEMOGLOBIN CONCENTRATION (G/DL) BY AUTOMATED 33.9 g/dL Normal 32.0-35.0 [facility] Comment on above: Performed By: #### L [id number] #### [facility] ([facility]) [address] [place] [address] Hematocrit (Bld) [Volume fraction] 32.7 % Low 39.0-55.0 [facility] Comment on above: Performed By: #### L [id number] #### [facility] ([facility]AKER) [address] [place] [address] Hemoglobin (Bld) [Mass/Vol] 11.1 g/dL Low 13.0-17.0 [facility] Comment on above: Performed By: #### L [id number] #### [facility] [address] [place] [address] Immature granulocytes (Bld) [#/Vol] 0.15 10*3/uL Normal 0.00-0.20 [facility] Comment on above: Performed By: #### L [id number] #### [facility] ([facility]) [address] [place] [address] Immature granulocytes/100 WBC (Bld) 1.6 % High 0.0-1.0 [facility] Comment on above: Performed By: #### L [id number] #### [facility] ([facility]) [address] [place] [address] Lymphocytes (Bld) [#/Vol] 1.04 10*3/uL Low 1.20-4.00 [facility] Comment on above: Performed By: #### L [id number] #### [facility] ([facility]) [address] [place] [address] Lymphocytes/100 WBC (Bld) 11.3 % Low 20.0-45.0 [facility] Comment on above: Performed By: #### L [id number] #### [facility] [address] [place] [address] MCH (RBC) [Entitic mass] 29.3 pg Normal 27.0-33.0 [facility] Comment on above: Performed By: #### L [id number] #### [facility] [address] [place] [address] MCV (RBC) [Entitic vol] 86.3 fL Normal 82.0-98.0 [facility] Comment on above: Performed By: #### L [id number] #### [facility] ([facility]ER) [address] [place] [address] Monocytes (Bld) [#/Vol] 0.96 10*3/uL Normal 0.10-1.00 [facility] Comment on above: Performed By: #### L [id number] #### [facility] ([facility]) [address] [place] [address] Monocytes/100 WBC (Bld) 10.5 % Normal 5.0-12.0 [facility] Comment on above: Performed By: #### L [id number] #### [facility] ([facility]) [address] [place] [address] Neutrophils (Bld) [#/Vol] 6.90 10*3/uL Normal 1.60-7.60 [facility] Comment on above: Performed By: #### L [id number] #### [facility] ([facility]) [address] [place] [address] Neutrophils/100 WBC (Bld) 75.2 % High 40.0-72.0 [facility] Comment on above: Performed By: #### L [id number] #### [facility] ([facility]) [address] [place] [address] NRBC (PER 100 WBCS) BY AUTOMATED COUNT 0.0 % Normal 0 [facility] Comment on above: Performed By: #### L [id number] #### [facility] [address] [place] [address] PLATELETS (10*3/UL) IN BLOOD AUTOMATED COUNT 301 10*3/uL Normal 150-400 [facility] Comment on above: Performed By: #### L [id number] #### [facility] ([facility] [address] [place] [address] RBC (Bld) [#/Vol] 3.79 10*6/uL Low 4.20-5.70 [facility] Comment on above: Performed By: #### L [id number] #### [facility] ([facility]AKER) [address] [place] [address] WBC (Bld) [#/Vol] 9.18 10*3/uL Normal 4.00-10.60 [facility] Comment on above: Performed By: #### L [id number] #### [facility] ([facility]) [address] [place] [address] CMV DNA, QUALITATIVE, PCRon 04-28-2023 CYTOMEGALOVIRUS QUAL. PCR Not detected Normal [facility] Comment on above: Result Comment: NOT DETECTED - A negative result does not rule out the presence of PCR inhibitors in the patient specimen or assay specific nucleic acid in concentrations below the level of detection by the assay. INTERPRETIVE INFORMATION: Cytomegalovirus Detection by PCR This test was developed and its performance characteristics determined by [facility]. It has not been cleared or approved by the [place] Food and Drug Administration. This test was performed in a CLIA certified laboratory and is intended for clinical purposes. Performed By: [facility] [address] [place] [id number] [employer]utter [employer] Scorer: René Wick MD, PhD CLIA Number: [id number] Performed By: #### L [id number] #### [facility] ([facility]) [address] [place] [address] CYTOMEGALOVIRUS SOURCE Blood Normal [facility] Comment on above: Performed By: #### L [id number] #### [facility] ([facility]) [address] [place] [address] COMPREHENSIVE METABOLIC PANE Claudio 04-28-2023 Albumin [Mass/Vol] 3.8 g/dL Normal 3.5-5.7 [facility] Comment on above: Performed By: #### L [id number] #### [facility] ([facility]) [address] [place] [address] ALP [Catalytic activity/Vol] 100 U/L Normal 34-104 [facility] Comment on above: Performed By: #### L [id number] #### [facility] ([facility]) [address] [place] [address] ALT [Catalytic activity/Vol] 12 U/L Normal 7-52 [facility] Comment on above: Performed By: #### L [id number] #### [facility] ([facility]ER) [address] [place] [address] AST [Catalytic activity/Vol] 12 U/L Low 13-39 [facility] Comment on above: Performed By: #### L [id number] #### [facility] [address] [place] [address] Bilirubin [Mass/Vol] 0.4 mg/dL Normal 0.3-1.0 [facility] Comment on above: Performed By: #### L [id number] #### [facility] [address] [place] [address] Protein [Mass/Vol] 6.0 g/dL Normal 6.0-8.3 [facility] Comment on above: Performed By: #### L [id number] #### [facility] ([facility]) [address] [place] [address] CONSULTon 04-28-2023 CONSULT - Attestation signed by [...] tacrolimus level Nephrology Consult Note Patient : Roger Suarez; 72 y.o. Location: [id number]- Attending: Esther Garduno MD Admit Date: 04/27/2023 Hospital Day: 1 Reason for Consult: ESRD s/p renal transplant with [facility]. History of Present Illness: HPI: Roger Suarez is a 72 y.o. male with PMHx ESRD d/t PKD s/p renal transplant 2019, HTN, HLD, CAD, PVD, COPD, pulmonary hypertension, HFrEF (EF 45%) and NIDDM2. Patient admitted on 04/27/2023 as a transfer from outside hospital in [place] for concerns of possible DKA, hyponatremia, and [...] nursing note reviewed. Exam conducted with a musical string maker present (Dr. Pan). Constitutional: General: He is [...] No ed (more content not included)... [facility] CREATININE, URINE, RANDOMon 04-28-2023 Creatinine (U) [Mass/Vol] 100.0 mg/dL Normal 26-299 [facility] Comment on above: Performed By: #### L [id number] #### [facility] ([facility]) [address] [place] [address] HEMOGLOBIN A1Con 04-28-2023 Glucose [Mass/Vol] 372 mg/dL Normal [facility] Comment on above: Order Comment: DRAW Q 3 MONTHS MAY, August, November, FEBRUARY Performed By: #### L [id number] #### [facility] ([facility]) [address] [place] [address] HbA1c (Bld) [Mass fraction] 14.6 % High 4.0-6.0 [facility] Comment on above: Order Comment: DRAW Q 3 MONTHS MAY, August, November, FEBRUARY Performed By: #### L [id number] #### [facility] ([facility]) [address] [place] [address] LACTIC ACID WITH 4 HOUR REFL EXon 04-28-2023 LACTATE (MMOL/L) IN SER/PLAS 0.8 mmol/L Normal 0.5-2.2 [facility] Comment on above: Performed By: #### L [id number] #### [facility] [address] [place] [address] MAGNESIUMon 04-28-2023 Magnesium [Mass/Vol] 1.7 mg/dL Low 1.9-2.7 [facility] Comment on above: Performed By: #### L [id number] ####[facility] ([facility])[address] [facility] [place] [address] NURSNOTEon 04-28-[address] Nguyen ( nephrology) regarding placing powerglide if pt a candidate, ok with placement on right arm. Normal [facility] OSMOLALITYon 04-28-2023 OSMOLALITY MEASURED 310 mOsm/kg High 275-295 [facility] Comment on above: Result Comment: Test Performed by [facility] [address] [place] [address] - Released 04/28/2023 22:42 Performed By: #### L [id number] #### [facility] ([facility]) [address] [place] [address] OSMOLALITY, URINEon 04-28-20 23 OSMOLALITY, URINE 446 mOsm/kg Normal 80-1300 [facility] Comment on above: Result Comment: Test Performed by [facility] [address] [place] [address] - Released 04/29/2023 03:35 Performed By: #### L [id number] #### [facility] ([facility]ER) [address] [place] [address] PHOSPHORUSon 04-28-2023 Magnesium [Mass/Vol] 3.7 mg/dL Normal 2.5-5.0 [facility] Comment on above: Performed By: #### L [id number] ####[facility] ([facility]AKER)[address] [place] [address] POCT GLUCOSE METER UNSOLICIT ED RESULTSon 04-28-2023 Glucose [Mass/Vol] 141 mg/dL High 70-105 [facility] Comment on above: Order Comment: Waive d Testing in the ED is performed under the ED CLIA certificate #[id number]. Result Comment: ladarius al Performed By: #### L [id number] #### [facility] ([facility]ER) [address] [facility] [address] Glucose [Mass/Vol] 99 mg/dL Normal 70-105 [facility] Comment on above: Order Comment: Waive d Testing in the ED is performed under the ED CLIA certificate #[id number]. Result Comment: besc obe Performed By: #### L [id number] #### [facility] ([facility]ER) [address] [place] [address] Glucose [Mass/Vol] 115 mg/dL High 70-105 [facility] Comment on above: Order Comment: Waive d Testing in the ED is performed under the ED CLIA certificate #[id number]. Result Comment: besc obe Performed By: #### L [id number] ####[facility] ([facility])[address] [place] [address] Glucose [Mass/Vol] 145 mg/dL High 70-105 [facility] Comment on above: Order Comment: Waive d Testing in the ED is performed under the ED CLIA certificate #[id number]. Result Comment: wwar rad Performed By: #### L [id number] ####[facility] ([facility])[address] [place] [address] Glucose [Mass/Vol] 165 mg/dL High 70-105 [facility] Comment on above: Order Comment: Waive d Testing in the ED is performed under the ED CLIA certificate #[id number]. Result Comment: besc obe Performed By: #### L [id number] #### [facility] ([facility]) [address] [place] [address] Glucose [Mass/Vol] 203 mg/dL High 70-105 [facility] Comment on above: Order Comment: DRAW Q 3 MONTHS MAY, August, November, FEBRUARY Result Comment: [email or web address] Performed By: #### L [id number] #### [facility] ([facility]) [address] [place] [address] Glucose [Mass/Vol] 247 mg/dL High 70-105 [facility] Comment on above: Order Comment: Waive d Testing in the ED is performed under the ED CLIA certificate #[id number]. Result Comment: wwar rad Performed By: #### L [id number] #### [facility] ([facility]) [address] [place] [address] Glucose [Mass/Vol] 315 mg/dL High 70-105 [facility] Comment on above: Order Comment: Waive d Testing in the ED is performed under the ED CLIA certificate #[id number]. Result Comment: wwar rad Performed By: #### L [id number] #### [facility] ([facility]) [address] [place] [address] Glucose [Mass/Vol] 356 mg/dL High 70-105 [facility] Comment on above: Order Comment: Waive d Testing in the ED is performed under the ED CLIA certificate #[id number]. Result Comment: abrosa rbo Performed By: #### L [id number] #### [facility] ([facility]) [address] [place] [address] Glucose [Mass/Vol] 312 mg/dL High 70-105 [facility] Comment on above: Order Comment: Waive d Testing in the ED is performed under the ED CLIA certificate #[id number]. Result Comment: wwar rad Performed By: #### L [id number] ####[facility] ([facility])[address] [place] [address] Glucose [Mass/Vol] 139 mg/dL High 70-105 [facility] Comment on above: Order Comment: Waive d Testing in the ED is performed under the ED CLIA certificate #[id number]. Result Comment: acle jordin Performed By: #### L [id number] #### [facility] ([facility]) [address] [facility] [place] [address] PROTEIN, URINE, RANDOMon Protein (U) [Mass/Vol] 47.2 mg/dL Normal [facility] Comment on above: Result Comment: Ther e are no established reference values for random urine specimens. Performed By: #### L [id number] ####[facility] ([facility])[address] [place] [address] PROTIME-INRon 04-28-2023 INR IN PPP BY COAGULATION ASSAY 1.13 High 0.90-1.10 [facility] Comment on above: Result Comment: [...] RANGE. CHEST 1995;108:[id number]. Performed By: #### L [id number] #### [facility] ([facility]) [address] [place] [address] PROTHROMBIN TIME (PT) IN PPP BY COAGULATION ASSAY 14.5 Seconds Normal 12.3-14.8 [facility] Comment on above: Performed By: #### L [id number] #### [facility] ([facility]) [address] [place] [address] PTH, INTACTon 04-28-2023 PARATHYRIN INTACT (PG/ML) IN SER/PLAS 48 pg/mL Normal [facility] Comment on above: Performed By: #### L [id number] ####[facility] ([facility])[address] [place] [address] SODIUM, URINE, RANDOMon 04-11 Sodium (U) [Moles/Vol] 35 mmol/L Normal [facility] Comment on above: Performed By: #### L [id number] #### [facility] ([employer]) [address] [place] [address] TACROLIMUS LEVELon Tacrolimus (Bld) [Mass/Vol] 11.6 ng/mL Normal 5.0-20.0 [facility] Comment on above: Result Comment: The [employer] Tacrolimus assay is a delayed one-step immunoassay for the quantitative determination of tacrolimus in human whole blood using the chemiluminescent microparticle immunoassay (CMIA) technology with flexible assay protocols, referred to as Chemiflex. Performed By: #### L [id number] #### [facility] ([facility]) [address] [place] [address] TROPONIN Ion 04-28-2023 Troponin I.cardiac [Mass/Vol] 0.02 ng/mL Normal 0.00-0.04 [facility] Comment on above: Performed By: #### L [id number] ####[facility] ([facility])[address] [place] [address] Troponin I.cardiac [Mass/Vol] 0.02 ng/mL Normal 0.00-0.04 [facility] Comment on above: Performed By: #### L [id number] ####[facility] ([facility])[address] [place] [address] Troponin I.cardiac [Mass/Vol] 0.04 ng/mL Normal 0.00-0.04 [facility] Comment on above: Performed By: #### L [id number] #### [facility] ([facility]) [address] [place] [address] URINALYSIS MICROSCOPIC WITH REFLEX CULTUREon 04-28-2023 CASTS IN URINE Normal [facility] Comment on above: Performed By: #### L [id number] #### [facility] ([facility]) [address] [place] [address] CRYSTALS IN URINE Normal [facility] Comment on above: Performed By: #### L [id number] #### [facility] ([facility]) [address] [place] [address] OTHER MICROSCOPIC ELEMENTS Normal [facility] Comment on above: Performed By: #### L [id number] #### [facility] ([facility]) [address] [place] [address] RBC (#/HPF) IN URINE SEDIMENT 21-50 Abnormal None Seen [facility] Comment on above: Performed By: #### L [id number] #### [facility] ([facility]AKER) [address] [place] [address] SQUAMOUS EPITHELIAL CELLS (#/HPF) IN URINE SEDIMENT Occasional Normal None Seen, [facility] Comment on above: Performed By: #### L [id number] #### [facility] ([facility]) [address] [place] [address] WBC (LEUKOCYTE) (#/HPF) IN URINE SEDIMENT 6-10 Abnormal None Seen [facility] Comment on above: Performed By: #### L [id number] #### [facility] [address] [place] [address] URINALYSIS WITH REFLEX CULTU REon 04-28-2023 BILIRUBIN, TOTAL PRESENCE IN URINE Negative Normal Negative [facility] Comment on above: Performed By: #### L [id number] ####[facility] ([facility])[address] [place] [address] Clarity (U) Clear Normal Clear [facility] Comment on above: Performed By: #### L [id number] ####[facility] ([facility])[address] [place] [address] Color (U) Yellow Normal Yellow [facility] Comment on above: Performed By: #### L [id number] ####[facility] ([facility])[address] [place] [address] Glucose (U) [Mass/Vol] Negative Normal Negative [facility] Comment on above: Performed By: #### L [id number] ####[facility] ([facility])[address] [place] [address] HEMOGLOBIN PRESENCE IN URINE Moderate Abnormal Negative [facility] Comment on above: Performed By: #### L [id number] ####[facility] ([facility])[address] [place] [address] Ketones Ql (U) 20 mg/dL Abnormal Negative [facility] Comment on above: Performed By: #### L [id number] ####[facility] ([facility])[address] [place] [address] LEUKOCYTE ESTERASE PRESENCE IN URINE BY TEST STRIP Trace Abnormal Negative [facility] Comment on above: Performed By: #### L [id number] ####[facility] ([facility])[address] [place] [address] NITRITE PRESENCE IN URINE Negative Normal Negative [facility] Comment on above: Performed By: #### L [id number] ####[facility] ([facility])[address] [place] [address] pH (U) 5.0 [pH] Normal 5.0-8.0 [facility] Comment on above: Performed By: #### L [id number] ####[facility] ([facility])[address] [place] [address] Protein (U) [Mass/Vol] 30 mg/dL Abnormal Negative [facility] Comment on above: Performed By: #### L [id number] ####[facility] ([facility])[address] [place] [address] Specific gravity (U) [Rel density] 1.015 Normal 1.015-1.020 [facility] Comment on above: Performed By: #### L [id number] ####[facility] ([facility])[address] [place] [address] Office Visiton 04-22-2023 Follow-up visit [id number] Roger Suarez 1950 M Date Provider Department Center 04/22/2023 [facility] FIG[facility]i [facility] Family History Problem Relation Age of Onset Diabetes Mother Hypertension Mother Coronary artery disease Mother Other Mother Cystic kidney disease Mother Hypertension Father Skin cancer Father Cystic kidney disease Father Cystic kidney disease Sister Heart disease Brother ALS Brother Cystic kidney disease Brother Family Status - Relation Status Age at Mother Father Sister Brother Level of Service:81082 SD OFFICE/OUTPATIENT ESTABLISHED LOW MDM 20-29 MIN [facility] Documentationon 04-07-2023 Documentation [id number] Roger Suarez 1950 M Date Provider Department Center 04/07/2023 MITCHELL LUU None Family History Problem Relation Age of Onset Diabetes Mother Hypertension Mother Coronary artery disease Mother Other Mother Cystic kidney disease Mother Hypertension Father Skin cancer Father Cystic kidney disease Father Cystic kidney disease Sister Heart disease Brother ALS Brother Cystic kidney disease Brother Family Status - Relation Status Age at Mother Father Sister Brother [facility] Orders Onlyon 04-02-2023 Orders Only [id number] SuarezRosasRoger E 1950 M Date Provider Department Center 04/02/2023 Anamika-LINK SUAREZ TXP None Family History Problem Relation Age of Onset Diabetes Mother Hypertension Mother Coronary artery disease Mother Other Mother Cystic kidney disease Mother Hypertension Father Skin cancer Father Cystic kidney disease Father Cystic kidney disease Sister Heart disease Brother ALS Brother Cystic kidney disease Brother Family Status - Relation Status Age at Mother Father Sister Brother [facility] 29on 11-11-2022 29 Addended by: DI GALLO on: 11/11/2022 12:52 PM Modules accepted: Orders Normal [facility] BILIRUBIN, DIRECTon 11-12-19 23 Magnesium [Mass/Vol] 0.1 mg/dL Normal 0-0.2 [facility] Comment on above: Performed By: #### L [id number] #### [facility] ([facility]) [address] [place] [address] BK VIRUS, PLASMA, QUANTITATI VEon 11-11-2022 BK QUANTITATION Not detected Normal [facility] Comment on above: Order Comment: DRAW Q 3 MONTHS MAY, August, November, FEBRUARY Result Comment: Meth od: BK virus was measured by quantitative polymerase chain reaction using a fluorescent hydrolysis probe targeting the polyomavirus BK TRANSFER AND LINE UP WORKER-1 gene. The lower limit of quantitation of the assay is 500 copies of BK genome per milliliter of plasma or urine, and any detectable BK DNA below that level is reported as: Detected, <500 copies/ml. Serial BK virus measurement can be used to monitor disease activity. (Reference: Katina ramirezl. J CLIN MICRO 2004; 42:7124-4416). This test was developed and its performance characteristics determined by the [facility]. It has not been approved by the US Food and Drug Administration. However, such approval is not required for clinical implementation, and test results have been shown to be clinically useful. This laboratory is CAP accredited and CLIA certified to perform high complexity testing. Performed By: #### L [id number] #### [facility] ([facility]) [address] [place] [address] BK QUANTITATION LOG Not detected Normal Not Detected [facility] Comment on above: Order Comment: DRAW Q 3 MONTHS MAY, August, November, FEBRUARY Performed By: #### L [id number] #### [facility] ([facility]) [address] [place] [address] CBC WITH AUTO DIFFERENTIALon 11-11-2022 Basophils (Bld) [#/Vol] 0.02 10*3/uL Normal 0.00-0.20 [facility] Comment on above: Performed By: #### L [id number] ####[facility] ([facility])[address] [place] [address] Basophils/100 WBC (Bld) 0.3 % Normal 0.0-1.0 [facility] Comment on above: Performed By: #### L [id number] ####[facility] ([facility])[address] [place] [address] Eosinophils (Bld) [#/Vol] 0.09 10*3/uL Normal 0.00-0.50 [facility] Comment on above: Performed By: #### L [id number] ####[facility] ([facility])[address] [place] [address] Eosinophils/100 WBC (Bld) 1.5 % Normal 0.0-6.0 [facility] Comment on above: Performed By: #### L [id number] ####[facility] ([facility])[address] [place] [address] Erythrocyte distribution width (RBC) [Ratio] 13.2 % Normal 11.5-15.0 [facility] Comment on above: Performed By: #### L [id number] ####[facility] [place] [address] ERYTHROCYTE MEAN CORPUSCULAR HEMOGLOBIN CONCENTRATION (G/DL) BY AUTOMATED 32.9 g/dL Normal 32.0-35.0 [facility] Comment on above: Performed By: #### L [id number] ####[facility] ([facility] [place] [address] Hematocrit (Bld) [Volume fraction] 35.9 % Low 39.0-55.0 [facility] Comment on above: Performed By: #### L [id number] ####[facility] ([facility])[address] [place] [address] Hemoglobin (Bld) [Mass/Vol] 11.8 g/dL Low 13.0-17.0 [facility] Comment on above: Performed By: #### L [id number] ####[facility] ([facility])[address] [place] [address] Immature granulocytes (Bld) [#/Vol] 0.07 10*3/uL Normal 0.00-0.20 [facility] Comment on above: Performed By: #### L [id number] ####[facility] ([facility])[address] [place] [address] Immature granulocytes/100 WBC (Bld) 1.2 % High 0.0-1.0 [facility] Comment on above: Performed By: #### L [id number] ####[facility] ([facility])[address] [place] [address] Lymphocytes (Bld) [#/Vol] 0.96 10*3/uL Low 1.20-4.00 [facility] Comment on above: Performed By: #### L [id number] ####[facility] ([facility])[address] [place] [address] Lymphocytes/100 WBC (Bld) 16.4 % Low 20.0-45.0 [facility] Comment on above: Performed By: #### L [id number] ####[facility] ([facility])[address] [place] [address] MCH (RBC) [Entitic mass] 28.6 pg Normal 27.0-33.0 [facility] Comment on above: Performed By: #### L [id number] ####[facility] ([facility])[address] [place] [address] MCV (RBC) [Entitic vol] 86.9 fL Normal 82.0-98.0 [facility] Comment on above: Performed By: #### L [id number] ####[facility] ([facility])[address] [place] [address] Monocytes (Bld) [#/Vol] 0.61 10*3/uL Normal 0.10-1.00 [facility] Comment on above: Performed By: #### L [id number] ####[facility] ([facility])[address] [place] [address] Monocytes/100 WBC (Bld) 10.4 % Normal 5.0-12.0 [facility] Comment on above: Performed By: #### L [id number] ####[facility] ([facility])[address] [place] [address] Neutrophils (Bld) [#/Vol] 4.12 10*3/uL Normal 1.60-7.60 [facility] Comment on above: Performed By: #### L [id number] ####[facility] ([facility])[address] [place] [address] Neutrophils/100 WBC (Bld) 70.2 % Normal 40.0-72.0 [facility] Comment on above: Performed By: #### L [id number] ####[facility] ([facility])[address] [place] [address] NRBC (PER 100 WBCS) BY AUTOMATED COUNT 0.0 % Normal 0 [facility] Comment on above: Performed By: #### L [id number] ####[facility] ([facility])[address] [place] [address] PLATELETS (10*3/UL) IN BLOOD AUTOMATED COUNT 232 10*3/uL Normal 150-400 [facility] Comment on above: Performed By: #### L [id number] ####[facility] ([facility])[address] [place] [address] RBC (Bld) [#/Vol] 4.13 10*6/uL Low 4.20-5.70 [facility] Comment on above: Performed By: #### L [id number] ####[facility] ([facility])[address] [place] [address] WBC (Bld) [#/Vol] 5.87 10*3/uL Normal 4.00-10.60 [facility] Comment on above: Performed By: #### L [id number] ####[facility] ([facility])[address] [place] [address] COMPREHENSIVE METABOLIC PANE Claudio 11-11-2022 Albumin [Mass/Vol] 4.5 g/dL Normal 3.5-5.7 [facility] Comment on above: Performed By: #### L [id number] #### [facility] ([facility]) [address] [place] [address] ALP [Catalytic activity/Vol] 131 U/L High 34-104 [facility] Comment on above: Performed By: #### L [id number] #### [facility] ([facility]) [address] [place] [address] ALT [Catalytic activity/Vol] 16 U/L Normal 7-52 [facility] Comment on above: Performed By: #### L [id number] #### [facility] ([facility]) [address] [place] [address] Anion gap [Moles/Vol] 14 mmol/L Normal 7-20 [facility] Comment on above: Performed By: #### L [id number] #### [facility] ([facility]) [address] [place] [address] AST [Catalytic activity/Vol] 17 U/L Normal 13-39 [facility] Comment on above: Performed By: #### L [id number] #### [facility] ([facility]) [address] [place] [address] Bilirubin [Mass/Vol] 0.4 mg/dL Normal 0.3-1.0 [facility] Comment on above: Performed By: #### L [id number] #### [facility] ([facility]) [address] [place] [address] Calcium [Mass/Vol] 8.0 mg/dL Low 8.6-10.3 [facility] Comment on above: Performed By: #### L [id number] #### [facility] ([facility]) [address] [place] [address] Chloride [Moles/Vol] 95 mmol/L Low 98-107 [facility] Comment on above: Performed By: #### L [id number] #### [facility] ([facility]) [address] [place] [address] CO2 [Moles/Vol] 24 mmol/L Normal 21-31 [facility] Comment on above: Performed By: #### L [id number] #### [facility] ([facility]) [address] [place] [address] Creatinine [Mass/Vol] 1.03 mg/dL Normal 0.70-1.30 [facility] Comment on above: Performed By: #### L [id number] #### [facility] ([facility]) [address] [place] [address] GLOMERULAR FILTRATION RATE ML/MIN/1.73 SQ M.PREDICTED 78.1 mL/min/1.73m*2 Normal >60.0 [facility] Comment on above: Result Comment: [facility]???s estimated glomerular filtration rate (eGFR) [...] group of individuals. Performed By: #### L [id number] #### [facility] ([facility]) [address] [place] [address] Glucose [Mass/Vol] 202 mg/dL High 70-100 [facility] Comment on above: Performed By: #### L [id number] #### [facility] ([facility]) [address] [place] [address] Potassium [Moles/Vol] 4.6 mmol/L Normal 3.5-5.1 [facility] Comment on above: Performed By: #### L [id number] #### [facility] ([facility]) [address] [place] [address] Protein [Mass/Vol] 6.7 g/dL Normal 6.0-8.3 [facility] Comment on above: Performed By: #### L [id number] #### [facility] ([facility]) [address] [place] [address] Sodium [Moles/Vol] 128 mmol/L Low 136-145 [facility] Comment on above: Performed By: #### L [id number] #### [facility] ([facility]) [address] [place] [address] Urea nitrogen [Mass/Vol] 11 mg/dL Normal 7-25 [facility] Comment on above: Performed By: #### L [id number] #### [facility] ([facility]) [address] [place] [address] UREA NITROGEN/CREATININE (MASS RATIO) IN SER/PLAS 10.7 Normal [facility] Comment on above: Performed By: #### L [id number] #### [facility] ([facility]) [address] [place] [address] Documentationon 11-11-2022 Documentation [id number] Roger Suarez 1950 M Date Provider Department Center 11/11/2022 ANTOINETTE ROTH None Family History Problem Relation Age of Onset Diabetes Mother Hypertension Mother Coronary artery disease Mother Other Mother Cystic kidney disease Mother Hypertension Father Skin cancer Father Cystic kidney disease Father Cystic kidney disease Sister Heart disease Brother ALS Brother Cystic kidney disease Brother Family Status - Relation Status Age at Mother Father Sister Brother [facility] Documentation [id number] Roger Suarez 1950 M Date Provider Department Center [...] Age at Mother Father Sister Brother [facility] Follow-Upon 11-11-2022 Follow-Up [id number] Roger Suarez 1950 M Date Provider Department Center [...] at Mother Father Sister Brother Level of Service:27149 SD OFFICE/OUTPATIENT ESTABLISHED LOW MDM 20-29 MIN Reason for Visit and Comments: Kidney Follow-up [[id number]] - 6 mo follow No concerns [facility] HEMOGLOBIN A1Con 11-11-2022 Glucose [Mass/Vol] 197 mg/dL Normal [facility] Comment on above: Order Comment: DRAW Q 3 MONTHS MAY, August, November, Performed By: #### L [id number] #### [facility] ([facility]) [address] [place] [address] HbA1c (Bld) [Mass fraction] 8.5 % High 4.0-6.0 [facility] Comment on above: Order Comment: DRAW Q 3 MONTHS MAY, August, November, FEBRUARY Performed By: #### L [id number] #### [facility] ([facility]) [address] [place] [address] LIPID PANELon 11-11-2022 CHOL/HDL 2.2 mg/dL [facility] Comment on above: Performed By: #### L [id number] ####[facility] ([facility])[address] [place] [address] Cholesterol [Mass/Vol] 90 mg/dL Low 120-200 [facility] Comment on above: Performed By: #### L [id number] ####[facility] ([facility])[address] [facility] [address] Magnesium [Mass/Vol] 60 mg/dL Normal 40-149 [facility] Comment on above: Result Comment: TRIG LYCERIDE REFERENCE RANGE: 20 YEARS AND OLDER CARDIOVASCULAR RISK LESS THAN 150 mg/dL LOW RISK 150 TO 199 mg/dL BORDERLINE RISK 200 mg/dL AND GREATER HIGH RISK Performed By: #### L [id number] ####[facility] ([facility])[address] [place] [address] Magnesium [Mass/Vol] 37 mg/dL Normal 0-160 [facility] Comment on above: Performed By: #### L [id number] ####[facility] [place] [address] Magnesium [Mass/Vol] 41 mg/dL Normal 23-92 [facility] Comment on above: Performed By: #### L [id number] ####[facility])[address] [place] [address] NON HDL CHOL. (LDL+VLDL) 49 [facility] Comment on above: Performed By: #### L [id number] ####[facility] ([facility])[address] [place] [address] TOTAL VLDL-C 12 mg/dL Normal 0-40 [facility] Comment on above: Performed By: #### L [id number] ####[facility] ([facility])[address] [place] [address] Labon 11-11-2022 Lab [id number] Roger Suarez 1950 M Date Provider Department [place] 11/11/202223886-WXF DRAW STATION KXT Draw [facility] Family History Problem Relation Age of Onset Diabetes Mother Hypertension Mother Coronary artery disease Mother Other Mother Cystic kidney disease Mother Hypertension Father Skin cancer Father Cystic kidney disease Father Cystic kidney disease Sister Heart disease Brother ALS Brother Cystic kidney disease Brother Family Status - Relation Status Age at Mother Father Sister Brother [facility] MAGNESIUMon 11-11-2022 Magnesium [Mass/Vol] 1.3 mg/dL Low 1.9-2.7 [facility] Comment on above: Performed By: #### L [id number] #### [facility] ([facility]) [address] [facility] [address] Orders Onlyon 11-11-2022 Orders Only [id number] Roger Suarez 1950 M Date Provider Department Center [...] Age at Mother Father Sister Brother [facility] PHOSPHORUSon 11-11-2022 Magnesium [Mass/Vol] 4.2 mg/dL Normal 2.5-5.0 [facility] Comment on above: Performed By: #### L [id number] #### [facility] ([facility]) [address] [place] [address] TACROLIMUS LEVELon 3 Tacrolimus (Bld) [Mass/Vol] 6.2 ng/mL Normal 5.0-20.0 [facility] Comment on above: Result Comment: DRAW Q 3 MONTHS MAY, August, November, FEBRUARY Performed By: #### L [id number] #### [facility] ([facility]) [address] [place] [address] URIC ACIDon 11-11-2022 Magnesium [Mass/Vol] 6.0 mg/dL Normal 4.4-7.6 [facility] Comment on above: Performed By: #### L [id number] ####[facility] ([facility])[address] [place] [address] 36on 10-09-2022 36 Per patient he has been getting labs done monthly at [facility]. 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 [facility] FK506 (TACROLIMUS) WHOLE BLO ODon 10-06-2022 Tacrolimus (FK506), Blood 3.8 ng/mL Normal 2.0-20.0 [facility] Comment on above: Result Comment: Trou gh (immediately following transplant) 15.0 . Trough (steady state, 2 weeks or more after transplant): 3.0 - 8.0 . Performed by LC-MS/MS technology. Performed By: #### U CLINT, CMP, LIPID, DBIL, PHOS, MG #### [facility] [address] [address] [address] Brea Causey Office Visiton 10-04-2022 Follow-up visit [id number] Roger Suarez 1950 M Date Provider Department Center 10/04/2022 MARIO SINGH [facility] Family History Problem Relation Age of Onset Diabetes Mother Hypertension Mother Coronary artery disease Mother Other Mother Cystic kidney disease Mother Hypertension Father Skin cancer Father Cystic kidney disease Father Cystic kidney disease Sister Heart disease Brother ALS Brother Cystic kidney disease Brother Family Status - Relation Status Age at Mother Father Sister Brother Level of Service:90067 SD OFFICE/OUTPATIENT ESTABLISHED MOD MDM 30-39 MIN Reason for Visit and Comments: Coronary Artery Disease [187] Hypertension [853992] Congestive Heart Failure [127] [facility] BILIRUBIN CONJUGATED (DIRECT )on 10-03-2022 BILI, CONJUGATED 0.1 mg/dL Normal 0.0-0.2 [facility] Comment on above: Performed By: #### C BC #### [facility] [address] [address] [address] Brea Causey CBC AUTO DIFFon 10-03-2022 BASO # 0.0 103/ul Normal 0.0-0.1 [facility] Comment on above: Performed By: #### U CLINT, CMP, LIPID, DBIL, PHOS, MG #### [facility] [address] [address] [address] Brea Causey Basophils/100 WBC (Bld) 0.5 % Normal 0.2-2.0 [facility] Comment on above: Performed By: #### U CLINT, CMP, LIPID, DBIL, PHOS, MG #### [facility] [address] [address] [address] Brea Causey EO # 0.1 103/ul Normal 0.0-0.7 [facility] Comment on above: Performed By: #### U CLINT, CMP, LIPID, DBIL, PHOS, MG #### [facility] [address] [address] [address] Brea Causey Eosinophils/100 WBC (Bld) 2.3 % Normal 0.9-7.0 [facility] Comment on above: Performed By: #### U CLINT, CMP, LIPID, DBIL, PHOS, MG #### [facility] [address] [place] [address] Dr. Brea Causey Erythrocyte distribution width (RBC) [Ratio] 13.2 % Normal 11.0-15.0 [facility] Comment on above: Performed By: #### U CLINT, CMP, LIPID, DBIL, PHOS, MG #### [facility] [address] [place] [address] Dr. Brea Causey Hematocrit (Bld) [Volume fraction] 35.0 % Critically low 42.0-54.0 [facility] Comment on above: Performed By: #### U CLINT, CMP, LIPID, DBIL, PHOS, MG #### [facility] [address] [place] [address] Dr. Brea Causey Hemoglobin (Bld) [Mass/Vol] 11.7 g/dL Critically low 14.0-18.0 [facility] Comment on above: Performed By: #### U CLINT, CMP, LIPID, DBIL, PHOS, MG #### [facility] [address] [place] [address] Dr. Brea Causey IG # 0.06 10e3/ul Critically high 0.00-0.03 [facility] Comment on above: Performed By: #### U CLINT, CMP, LIPID, DBIL, PHOS, MG #### [facility] [address] [place] [address] Dr. Brea Causey IG % 1.1 % Critically high 0.0-0.5 [facility] Comment on above: Performed By: #### U CLINT, CMP, LIPID, DBIL, PHOS, MG #### [facility] [address] [place] [address] Dr. Brea Causey LYMPH # 0.8 103/ul Critically low 1.2-3.8 [facility] Comment on above: Performed By: #### U CLINT, CMP, LIPID, DBIL, PHOS, MG #### [facility] [address] [place] [address] Dr. Brea Causey Lymphocytes/100 WBC (Bld) 14.9 % Critically low 20.5-60.0 [facility] Comment on above: Performed By: #### U CLINT, CMP, LIPID, DBIL, PHOS, MG #### [facility] [address] [place] [address] Dr. Brea Causey MANUAL DIFF REQ NO Normal [facility] Comment on above: Performed By: #### U CLINT, CMP, LIPID, DBIL, PHOS, MG #### [facility] [address] [place] [address] Dr. Brea Causey MCH (RBC) [Entitic mass] 28.8 pg Normal 25.9-34.0 [facility] Comment on above: Performed By: #### U CLINT, CMP, LIPID, DBIL, PHOS, MG #### [facility] [address] [place] [address] Dr. Brea Causey MCHC (RBC) [Mass/Vol] 33.4 g/dL Normal 29.9-35.2 [facility] Comment on above: Performed By: #### U CLINT, CMP, LIPID, DBIL, PHOS, MG #### [facility] [address] [place] [address] Dr. Brea Causye MCV (RBC) [Entitic vol] 86.2 fL Normal 80.0-94.0 [facility] Comment on above: Performed By: #### U CLINT, CMP, LIPID, DBIL, PHOS, MG #### [facility] [address] [place] [address] Dr. Brea Causey MONO # 0.5 103/ul Normal 0.3-0.8 [facility] Comment on above: Performed By: #### U CLINT, CMP, LIPID, DBIL, PHOS, MG #### [facility] [address] [place] [address] Dr. Brea Causey Monocytes/100 WBC (Bld) 9.1 % Normal 1.7-12.0 [facility] Comment on above: Performed By: #### U CLINT, CMP, LIPID, DBIL, PHOS, MG #### [facility] [address] [address] [address] Brea Causey NEUT # 4.1 103/ul Normal 1.4-6.5 [facility] Comment on above: Performed By: #### U CLINT, CMP, LIPID, DBIL, PHOS, MG #### [facility] [address] [place] [address] Dr. Brea Causey Neutrophils/100 WBC (Bld) 72.1 % Normal 43.0-75.0 [facility] Comment on above: Performed By: #### U CLINT, CMP, LIPID, DBIL, PHOS, MG #### [facility] [address] [place] [address] Dr. Brea Causey Platelet mean volume (Bld) [Entitic vol] 9.0 fL Critically low 9.5-13.5 [facility] Comment on above: Performed By: #### U CLINT, CMP, LIPID, DBIL, PHOS, MG #### [facility] [address] [place] [address] Dr. Brea Causey PLT 211 103/ul Normal 150-450 [facility] Comment on above: Performed By: #### U CLINT, CMP, LIPID, DBIL, PHOS, MG #### [facility] [address] [place] [address] Dr. Brea Causey RBC 4.06 106/ul Critically low 4.70-6.10 [facility] Comment on above: Performed By: #### U CLINT, CMP, LIPID, DBIL, PHOS, MG #### [facility] [address] [place] [address] Dr. Brea Causey WBC 5.6 103/ul Normal 4.0-11.0 [facility] Comment on above: Performed By: #### U CLINT, CMP, LIPID, DBIL, PHOS, MG #### [facility] [address] [address] [address] Brea Causey LIPID PROFILEon 10-03-2022 CHOL-HDL RATIO NORM SEE BELOW Normal [facility] Comment on above: Result Comment: 3.3 - 4.4 LOW RISK 4.4 - 7.1 AVERAGE RISK 7.1 - 11.0 MODERATE RISK >11.0 HIGH RISK Performed By: #### C BC #### [facility] [address] [address] [address] Brea Causey Cholesterol [Mass/Vol] 93 mg/dL Normal <=200 [facility] Comment on above: Performed By: #### C BC #### [facility] [address] [address] [address] Brea Causey Cholesterol in HDL [Mass/Vol] 43 mg/dL Normal 40-60 [facility] Comment on above: Performed By: #### C BC #### [facility] [address] [address] [address] Brea Causey Cholesterol in LDL [Mass/Vol] 37.6 mg/dL Normal [facility] Comment on above: Performed By: #### C BC #### [facility] [address] [address] [address] Brea Causey Cholesterol.total/Cho lesterol in HDL [Mass ratio] 2.2 {ratio} Normal [facility] Comment on above: Performed By: #### C BC #### [facility] [address] [address] [address] Brea Causey HDL NORMAL > or = 60 mg/dl - LO W CARDIOVASCULAR RISK <40 mg/dl - HIGH CARDIOVASCULAR RISK Normal [facility] Comment on above: Performed By: #### C BC #### [facility] [address] [address] [address] Brea Causey LDL CALC NORMAL SEE BELOW Normal [facility] Comment on above: Result Comment: <100 mg/dl OPTIMAL 100 - 129 mg/dl NEAR OR ABOVE OPTIMAL 130 - 159 mg/dl BORDERLINE HIGH 160 - 189 mg/dl HIGH >190 mg/dl VERY HIGH Performed By: #### C BC #### [facility] [address] [place] [address] Dr. Brea Causey Triglyceride [Mass/Vol] 62 mg/dL Normal <=150 [facility] Comment on above: Performed By: #### C BC #### [facility] [address] [place] [address] Dr. Brea Causey VLDL CALC 12.4 mg/dL Normal [facility] Comment on above: Performed By: #### C BC #### [facility] [address] [place] [address] Dr. Brea Causey MAGNESIUMon 10-03-2022 Magnesium [Mass/Vol] 1.5 mg/dL Critically low 1.8-2.4 [facility] Comment on above: Performed By: #### C BC #### [facility] [address] [place] [address] Dr. Brea Causey PHOSPHORUSon 10-03-2022 Phosphate [Mass/Vol] 4.4 mg/dL Normal 2.6-4.7 [facility] Comment on above: Performed By: #### C BC #### [facility] [address] [place] [address] Dr. Brea Causey PROF 14(COMP METB)on 023 Albumin [Mass/Vol] 3.8 g/dL Normal 3.4-5.0 [facility] Comment on above: Performed By: #### C BC #### [facility] [address] [place] [address] Dr. Brea Causey Albumin/Globulin [Mass ratio] 1.1 {ratio} Normal [facility] Comment on above: Performed By: #### C BC #### [facility] [address] [place] [address] Dr. Brea Causey ALP [Catalytic activity/Vol] 190 U/L Critically high 46-116 [facility] Comment on above: Performed By: #### C BC #### [facility] [address] [address] [address] Brea Causey ALT [Catalytic activity/Vol] 26 U/L Normal 16-63 [facility] Comment on above: Performed By: #### C BC #### [facility] [address] [place] [address] Dr. Brea Causey Anion gap [Moles/Vol] 15.3 mmol/L Normal [facility] Comment on above: Performed By: #### C BC #### [facility] [address] [place] [address] Dr. Brea Causey AST [Catalytic activity/Vol] 23 U/L Normal 15-37 [facility] Comment on above: Performed By: #### C BC #### [facility] [address] [place] [address] Dr. Brea Causey Bilirubin [Mass/Vol] 0.4 mg/dL Normal 0.2-1.0 [facility] Comment on above: Performed By: #### C BC #### [facility] [address] [place] [address] Dr. Brea Causey Calcium [Mass/Vol] 7.8 mg/dL Critically low 8.5-10.1 [facility] Comment on above: Performed By: #### C BC #### [facility] [address] [place] [address] Dr. Brea Causey Chloride [Moles/Vol] 97 mmol/L Critically low 98-107 [facility] Comment on above: Performed By: #### C BC #### [facility] [address] [place] [address] Dr. Brea Causey CO2 [Moles/Vol] 25.6 mmol/L Normal 21.0-32.0 [facility] Comment on above: Performed By: #### C BC #### [facility] [address] [place] [address] Dr. Brea Causey Creatinine [Mass/Vol] 1.03 mg/dL Normal 0.70-1.30 [facility] Comment on above: Performed By: #### C BC #### [facility] [address] [place] [address] Dr. Brea Causey EGFR-AF PARAGUAYAN >60 Normal >=60 [facility] Comment on above: Performed By: #### C BC #### [facility] [address] [address] [address] Brea Causey EGFR-NON AF PARAGUAYAN >60 Normal >=60 [facility] Comment on above: Performed By: #### C BC #### [facility] [address] [address] [address] Brea Causey Globulin (S) [Mass/Vol] 3.6 g/dL Normal [facility] Comment on above: Performed By: #### C BC #### [facility] [address] [address] [address] Brea Causey Glucose [Mass/Vol] 188 mg/dL Critically high 74-106 [facility] Comment on above: Performed By: #### C BC #### [facility] [address] [address] [address] Brea Causey Potassium [Moles/Vol] 4.9 mmol/L Normal 3.5-5.1 [facility] Comment on above: Performed By: #### C BC #### [facility] [address] [place] [address] Dr. Brea Causey Protein [Mass/Vol] 7.4 g/dL Normal 6.4-8.2 [facility] Comment on above: Performed By: #### C BC #### [facility] [address] [address] [address] Brea Causey Sodium [Moles/Vol] 133 mmol/L Critically low 136-145 Th [facility] Comment on above: Performed By: #### C BC #### [facility] [address] [address] [address] Brea Causey Urea nitrogen [Mass/Vol] 11.0 mg/dL Normal 7.0-18.0 [facility] Comment on above: Performed By: #### C BC #### [facility] [address] [address] [address] Brea Causey Urea nitrogen/Creatinine [Mass ratio] 10.7 mg/mg Normal [facility] Comment on above: Performed By: #### C BC #### [facility] [address] [place] [address] Dr. Brea Causey URIC ACID SERUMon 10-03-2022 Urate [Mass/Vol] 5.7 mg/dL Normal 3.5-7.2 [facility] Comment on above: Performed By: #### C BC #### [facility] [address] [place] [address] Dr. Brea Causey BK VIRUS PCR QUANTon 023 BKV DNA QUANT PCR PLASMA Negative Normal Negative [facility] Comment on above: Result Comment: No B K DNA detected. . The linear range of the assay is 22 - 100,000,000 IU/mL. Performed By: #### U CLINT, CMP, LIPID, DBIL, PHOS, MG #### [facility] [address] [place] [address] Dr. Brea Causey Log10 BKV DNA Plasma Normal [facility] Comment on above: Performed By: #### U CLINT, CMP, LIPID, DBIL, PHOS, MG #### [facility] [address] [place] [address] Dr. Brea Causey FK506 (TACROLIMUS) WHOLE BLO ODon 09-02-2022 Tacrolimus (FK506), Blood 3.8 ng/mL Normal 2.0-20.0 [facility] Comment on above: Result Comment: Trou gh (immediately following transplant) 15.0 . Trough (steady state, 2 weeks or more after transplant): 3.0 - 8.0 . Performed by LC-MS/MS technology. Performed By: #### U CLINT, CMP, LIPID, DBIL, PHOS, MG #### [facility] [address] [place] [address] Dr. Brea Causey TESTOSTERONE, FREE,DIRECT, T OTALon 09-01-2022 Free Testosterone(Direct) 9.7 pg/mL Normal 6.6-18.1 [facility] Comment on above: Result Comment: Perf ormed at: BN Performed By: #### U CLINT, CMP, LIPID, DBIL, PHOS, MG #### [facility] [address] [place] [address] Dr. Brea Causey Testosterone [Mass/Vol] 565 ng/dL Normal 264-916 [facility] Comment on above: Result Comment: Adul t male reference interval is based on a population of healthy nonobese males (BMI <30) between 19 and 39 years old. daniel Harris.al. JCEM 2017,102;[id number]. PMID: [id number]. Performed at: CB Performed By: #### U CLINT, CMP, LIPID, DBIL, PHOS, MG #### [facility] [address] [place] [address] Dr. Brea Causey BILIRUBIN CONJUGATED (DIRECT )on 08-30-2022 BILI, CONJUGATED 0.1 mg/dL Normal 0.0-0.2 [facility] Comment on above: Performed By: #### U CLINT, CMP, LIPID, DBIL, PHOS, MG #### [facility] [address] [place] [address] Dr. Brea Causey CBC AUTO DIFFon 08-30-2022 BASO # 0.0 103/ul Normal 0.0-0.1 [facility] Comment on above: Performed By: #### U CLINT, CMP, LIPID, DBIL, PHOS, MG #### [facility] [address] [place] [address] Dr. Brea Causey Basophils/100 WBC (Bld) 0.7 % Normal 0.2-2.0 [facility] Comment on above: Performed By: #### U CLINT, CMP, LIPID, DBIL, PHOS, MG #### [facility] [address] [place] [address] Dr. Brea Causey EO # 0.2 103/ul Normal 0.0-0.7 [facility] Comment on above: Performed By: #### U CLINT, CMP, LIPID, DBIL, PHOS, MG #### [facility] [address] [place] [address] Dr. Brea Causey Eosinophils/100 WBC (Bld) 3.6 % Normal 0.9-7.0 [facility] Comment on above: Performed By: #### U CLINT, CMP, LIPID, DBIL, PHOS, MG #### [facility] [address] [address] [address] Brea Causey Erythrocyte distribution width (RBC) [Ratio] 13.2 % Normal 11.0-15.0 [facility] Comment on above: Performed By: #### U CLINT, CMP, LIPID, DBIL, PHOS, MG #### [facility] [address] [place] [address] Dr. Brea Causey Hematocrit (Bld) [Volume fraction] 36.0 % Critically low 42.0-54.0 [facility] Comment on above: Performed By: #### U CLINT, CMP, LIPID, DBIL, PHOS, MG #### [facility] [address] [place] [address] Dr. Brea Causey Hemoglobin (Bld) [Mass/Vol] 12.2 g/dL Critically low 14.0-18.0 [facility] Comment on above: Performed By: #### U CLINT, CMP, LIPID, DBIL, PHOS, MG #### [facility] [address] [place] [address] Dr. Brea Causey IG # 0.07 10e3/ul Critically high 0.00-0.03 The [facility] Comment on above: Performed By: #### U CLINT, CMP, LIPID, DBIL, PHOS, MG #### [facility] [address] [place] [address] Dr. Brea Causey IG % 1.2 % Critically high 0.0-0.5 [facility] Comment on above: Performed By: #### U CLINT, CMP, LIPID, DBIL, PHOS, MG #### [facility] [address] [place] [address] Dr. Brea Causey LYMPH # 0.9 103/ul Critically low 1.2-3.8 [facility] Comment on above: Performed By: #### U CLINT, CMP, LIPID, DBIL, PHOS, MG #### [facility] [address] [place] [address] Dr. Brea Causey Lymphocytes/100 WBC (Bld) 15.0 % Critically low 20.5-60.0 [facility] Comment on above: Performed By: #### U CLINT, CMP, LIPID, DBIL, PHOS, MG #### [facility] [address] [place] [address] Dr. Brea Causey MANUAL DIFF REQ NO Normal [facility] Comment on above: Performed By: #### U CLINT, CMP, LIPID, DBIL, PHOS, MG #### [facility] [address] [place] [address] Dr. Brea Causey MCH (RBC) [Entitic mass] 29.4 pg Normal 25.9-34.0 [facility] Comment on above: Performed By: #### U CLINT, CMP, LIPID, DBIL, PHOS, MG #### [facility] [address] [place] [address] Dr. Brea Causey MCHC (RBC) [Mass/Vol] 33.9 g/dL Normal 29.9-35.2 [facility] Comment on above: Performed By: #### U CLINT, CMP, LIPID, DBIL, PHOS, MG #### [facility] [address] [place] [address] Dr. Brea Causey MCV (RBC) [Entitic vol] 86.7 fL Normal 80.0-94.0 [facility] Comment on above: Performed By: #### U CLINT, CMP, LIPID, DBIL, PHOS, MG #### [facility] [address] [place] [address] Dr. Brea Causey MONO # 0.5 103/ul Normal 0.3-0.8 [facility] Comment on above: Performed By: #### U CLINT, CMP, LIPID, DBIL, PHOS, MG #### [facility] [address] [place] [address] Dr. Brea Causey Monocytes/100 WBC (Bld) 9.0 % Normal 1.7-12.0 [facility] Comment on above: Performed By: #### U CLINT, CMP, LIPID, DBIL, PHOS, MG #### [facility] [address] [place] [address] Dr. Brea Causey NEUT # 4.2 103/ul Normal 1.4-6.5 [facility] Comment on above: Performed By: #### U CLINT, CMP, LIPID, DBIL, PHOS, MG #### [facility] [address] [address] [address] Brea Causey Neutrophils/100 WBC (Bld) 70.5 % Normal 43.0-75.0 [facility] Comment on above: Performed By: #### U CLINT, CMP, LIPID, DBIL, PHOS, MG #### [facility] [address] [address] [address] Brea Causey Platelet mean volume (Bld) [Entitic vol] 8.7 fL Critically low 9.5-13.5 [facility] Comment on above: Performed By: #### U CLINT, CMP, LIPID, DBIL, PHOS, MG #### [facility] [address] [place] [address] Dr. Brea Causey PLT 247 103/ul Normal 150-450 [facility] Comment on above: Performed By: #### U CLINT, CMP, LIPID, DBIL, PHOS, MG #### [facility] [address] [address] [address] Brea Causey RBC 4.15 106/ul Critically low 4.70-6.10 [facility] Comment on above: Performed By: #### U CLINT, CMP, LIPID, DBIL, PHOS, MG #### [facility] [address] [address] [address] Brea Causey WBC 5.9 103/ul Normal 4.0-11.0 [facility] Comment on above: Performed By: #### U CLINT, CMP, LIPID, DBIL, PHOS, MG #### [facility] [address] [address] [address] Brea Causey GLYCOHEMOGLOBIN A1Con 2022 ADA RECOMMENDATION SEE BELOW Normal [facility] Comment on above: Result Comment: ADA RECOMMENDED LIMIT 4.0 - 6.0 ADA THERAPEUTIC TARGET < 7.0 ACTION SUGGESTED > 7.0 Performed By: #### U CLINT, CMP, LIPID, DBIL, PHOS, MG #### [facility] [address] [address] [address] Brea Causey Glucose [Mass/Vol] 177 mg/dL Normal [facility] Comment on above: Performed By: #### U CLINT, CMP, LIPID, DBIL, PHOS, MG #### [facility] [address] [address] [address] Brea Causey HbA1c (Bld) [Mass fraction] 7.8 % Critically high 4.5-6.2 [facility] Comment on above: Performed By: #### U CLINT, CMP, LIPID, DBIL, PHOS, MG #### [facility] [address] [address] [address] Brea Causey LIPID PROFILEon 08-30-2022 CHOL-HDL RATIO NORM SEE BELOW Normal [facility] Comment on above: Result Comment: 3.3 - 4.4 LOW RISK 4.4 - 7.1 AVERAGE RISK 7.1 - 11.0 MODERATE RISK >11.0 HIGH RISK Performed By: #### U CLINT, CMP, LIPID, DBIL, PHOS, MG #### [facility] [address] [address] [address] Brea Causey Cholesterol [Mass/Vol] 96 mg/dL Normal <=200 [facility] Comment on above: Performed By: #### U CLINT, CMP, LIPID, DBIL, PHOS, MG #### [facility] [address] [address] [address] Brea Causey Cholesterol in HDL [Mass/Vol] 48 mg/dL Normal 40-60 [facility] Comment on above: Performed By: #### U CLINT, CMP, LIPID, DBIL, PHOS, MG #### [facility] [address] [address] [address] Brea Causey Cholesterol in LDL [Mass/Vol] 40.2 mg/dL Normal [facility] Comment on above: Performed By: #### U CLINT, CMP, LIPID, DBIL, PHOS, MG #### [facility] [address] [address] [address] Brea Causey Cholesterol.total/Cho lesterol in HDL [Mass ratio] 2.0 {ratio} Normal [facility] Comment on above: Performed By: #### U CLINT, CMP, LIPID, DBIL, PHOS, MG #### [facility] [address] [address] [address] Brea Causey HDL NORMAL > or = 60 mg/dl - LO W CARDIOVASCULAR RISK <40 mg/dl - HIGH CARDIOVASCULAR RISK Normal [facility] Comment on above: Performed By: #### U CLINT, CMP, LIPID, DBIL, PHOS, MG #### [facility] [address] [address] [address] Brea Causey LDL CALC NORMAL SEE BELOW Normal [facility] Comment on above: Result Comment: <100 mg/dl OPTIMAL 100 - 129 mg/dl NEAR OR ABOVE OPTIMAL 130 - 159 mg/dl BORDERLINE HIGH 160 - 189 mg/dl HIGH >190 mg/dl VERY HIGH Performed By: #### U CLINT, CMP, LIPID, DBIL, PHOS, MG #### [facility] [address] [address] [address] Brea Causey Triglyceride [Mass/Vol] 39 mg/dL Normal <=150 [facility] Comment on above: Performed By: #### U CLINT, CMP, LIPID, DBIL, PHOS, MG #### [facility] [address] [address] [address] Brea Causey VLDL CALC 7.8 mg/dL Normal [facility] Comment on above: Performed By: #### U CLINT, CMP, LIPID, DBIL, PHOS, MG #### [facility] [address] [address] [address] Brea Causey MAGNESIUMon 08-30-2022 Magnesium [Mass/Vol] 1.5 mg/dL Critically low 1.8-2.4 [facility] Comment on above: Performed By: #### U CLINT, CMP, LIPID, DBIL, PHOS, MG #### [facility] [address] [place] [address] Dr. Brea Causey PHOSPHORUSon 08-30-2022 Phosphate [Mass/Vol] 4.0 mg/dL Normal 2.6-4.7 [facility] Comment on above: Performed By: #### U CLINT, CMP, LIPID, DBIL, PHOS, MG #### [facility] [address] [address] [address] Brea Causey PROF 14(COMP METB)on 023 Albumin [Mass/Vol] 3.8 g/dL Normal 3.4-5.0 [facility] Comment on above: Performed By: #### U CLINT, CMP, LIPID, DBIL, PHOS, MG #### [facility] [address] [address] [address] Brea Causey Albumin/Globulin [Mass ratio] 1.1 {ratio} Normal [facility] Comment on above: Performed By: #### U CLINT, CMP, LIPID, DBIL, PHOS, MG #### [facility] [address] [address] [address] Brea Causey ALP [Catalytic activity/Vol] 177 U/L Critically high 46-116 [facility] Comment on above: Performed By: #### U CLINT, CMP, LIPID, DBIL, PHOS, MG #### [facility] [address] [place] [address] Dr. Brea Causey ALT [Catalytic activity/Vol] 27 U/L Normal 16-63 [facility] Comment on above: Performed By: #### U CLINT, CMP, LIPID, DBIL, PHOS, MG #### [facility] [address] [address] [address] Brea Causey Anion gap [Moles/Vol] 12.1 mmol/L Normal [facility] Comment on above: Performed By: #### U CILNT, CMP, LIPID, DBIL, PHOS, MG #### [facility] [address] [address] [address] Brea Causey AST [Catalytic activity/Vol] 19 U/L Normal 15-37 [facility] Comment on above: Performed By: #### U CLINT, CMP, LIPID, DBIL, PHOS, MG #### [facility] [address] [address] [address] Brea Causey Bilirubin [Mass/Vol] 0.3 mg/dL Normal 0.2-1.0 [facility] Comment on above: Performed By: #### U CLINT, CMP, LIPID, DBIL, PHOS, MG #### [facility] [address] [place] [address] Dr. Brea Causey Calcium [Mass/Vol] 8.0 mg/dL Critically low 8.5-10.1 [facility] Comment on above: Performed By: #### U CLINT, CMP, LIPID, DBIL, PHOS, MG #### [facility] [address] [place] [address] Dr. Brea Causey Chloride [Moles/Vol] 96 mmol/L Critically low 98-107 [facility] Comment on above: Performed By: #### U CLINT, CMP, LIPID, DBIL, PHOS, MG #### [facility] [address] [place] [address] Dr. Brea Causey CO2 [Moles/Vol] 28.0 mmol/L Normal 21.0-32.0 [facility] Comment on above: Performed By: #### U CLINT, CMP, LIPID, DBIL, PHOS, MG #### [facility] [address] [place] [address] Dr. Brea Causey Creatinine [Mass/Vol] 1.07 mg/dL Normal 0.70-1.30 [facility] Comment on above: Performed By: #### U CLINT, CMP, LIPID, DBIL, PHOS, MG #### [facility] [address] [place] [address] Dr. Brea Causey EGFR-AF PARAGUAYAN >60 Normal >=60 [facility] Comment on above: Performed By: #### U CLINT, CMP, LIPID, DBIL, PHOS, MG #### [facility] [address] [place] [address] Dr. Brea Causey EGFR-NON AF PARAGUAYAN >60 Normal >=60 [facility] Comment on above: Performed By: #### U CLINT, CMP, LIPID, DBIL, PHOS, MG #### [facility] [address] [place] [address] Dr. Brea Causey Globulin (S) [Mass/Vol] 3.5 g/dL Normal [facility] Comment on above: Performed By: #### U CLINT, CMP, LIPID, DBIL, PHOS, MG #### [facility] [address] [place] [address] Dr. Brea Causey Glucose [Mass/Vol] 179 mg/dL Critically high 74-106 [facility] Comment on above: Performed By: #### U CLINT, CMP, LIPID, DBIL, PHOS, MG #### [facility] [address] [place] [address] Dr. Brea Causey Potassium [Moles/Vol] 5.1 mmol/L Normal 3.5-5.1 [facility] Comment on above: Performed By: #### U CLINT, CMP, LIPID, DBIL, PHOS, MG #### [facility] [address] [place] [address] Dr. Brea Causey Protein [Mass/Vol] 7.3 g/dL Normal 6.4-8.2 [facility] Comment on above: Performed By: #### U CLINT, CMP, LIPID, DBIL, PHOS, MG #### [facility] [address] [place] [address] Dr. Brea Causey Sodium [Moles/Vol] 131 mmol/L Critically low 136-145 Th [facility] Comment on above: Performed By: #### U CLINT, CMP, LIPID, DBIL, PHOS, MG #### [facility] [address] [place] [address] Dr. Brea Causey Urea nitrogen [Mass/Vol] 10.0 mg/dL Normal 7.0-18.0 [facility] Comment on above: Performed By: #### U CLINT, CMP, LIPID, DBIL, PHOS, MG #### [facility] [address] [place] [address] Dr. Brea Causey Urea nitrogen/Creatinine [Mass ratio] 9.3 mg/mg Normal [facility] Comment on above: Performed By: #### U CLINT, CMP, LIPID, DBIL, PHOS, MG #### [facility] [address] [place] [address] Dr. Brea Causey URIC ACID SERUMon 08-30-2022 Urate [Mass/Vol] 6.0 mg/dL Normal 3.5-7.2 [facility] Comment on above: Performed By: #### U CLINT, CMP, LIPID, DBIL, PHOS, MG #### [facility] [address] [place] [address] Dr. Brea Causey FK506 (TACROLIMUS) WHOLE BLO ODon 08-03-2022 Tacrolimus (FK506), Blood 3.2 ng/mL Normal 2.0-20.0 [facility] Comment on above: Result Comment: Trou gh (immediately following transplant) 15.0 . Trough (steady state, 2 weeks or more after transplant): 3.0 - 8.0 . Performed by LC-MS/MS technology. Performed By: #### C BC #### [facility] [address] [place] [address] Dr. Brea Causey BILIRUBIN CONJUGATED (DIRECT )on 08-01-2022 BILI, CONJUGATED 0.1 mg/dL Normal 0.0-0.2 [facility] Comment on above: Performed By: #### U CLINT, CMP, LIPID, DBIL, PHOS, MG #### [facility] [address] [place] [address] Dr. Brea Causey CBC AUTO DIFFon 08-01-2022 BASO # 0.0 103/ul Normal 0.0-0.1 [facility] Comment on above: Performed By: #### C BC #### [facility] [address] [place] [address] Dr. Brea Causey Basophils/100 WBC (Bld) 0.7 % Normal 0.2-2.0 [facility] Comment on above: Performed By: #### C BC #### [facility] [address] [place] [address] Dr. Brea Causey EO # 0.1 103/ul Normal 0.0-0.7 [facility] Comment on above: Performed By: #### C BC #### [facility] [address] [place] [address] Dr. Brea Causey Eosinophils/100 WBC (Bld) 2.4 % Normal 0.9-7.0 [facility] Comment on above: Performed By: #### C BC #### [facility] [address] [place] [address] Dr. Brea Causey Erythrocyte distribution width (RBC) [Ratio] 13.3 % Normal 11.0-15.0 [facility] Comment on above: Performed By: #### C BC #### [facility] [address] [place] [address] Dr. Brea Causey Hematocrit (Bld) [Volume fraction] 36.5 % Critically low 42.0-54.0 [facility] Comment on above: Performed By: #### C BC #### [facility] [address] [place] [address] Dr. Brea Causey Hemoglobin (Bld) [Mass/Vol] 12.1 g/dL Critically low 14.0-18.0 [facility] Comment on above: Performed By: #### C BC #### [facility] [address] [place] [address] Dr. Brea Causey IG # 0.07 10e3/ul Critically high 0.00-0.03 [facility] Comment on above: Performed By: #### C BC #### [facility] [address] [place] [address] Dr. Brea Cuasey IG % 1.2 % Critically high 0.0-0.5 [facility] Comment on above: Performed By: #### C BC #### [facility] [address] [place] [address] Dr. Brea Causey LYMPH # 0.9 103/ul Critically low 1.2-3.8 [facility] Comment on above: Performed By: #### C BC #### [facility] [address] [place] [address] Dr. Brea Causey Lymphocytes/100 WBC (Bld) 14.5 % Critically low 20.5-60.0 [facility] Comment on above: Performed By: #### C BC #### [facility] [address] [place] [address] Dr. Brea Causey MANUAL DIFF REQ NO Normal [facility] Comment on above: Performed By: #### C BC #### [facility] [address] [place] [address] Dr. Brea Causey MCH (RBC) [Entitic mass] 28.8 pg Normal 25.9-34.0 [facility] Comment on above: Performed By: #### C BC #### [facility] [address] [place] [address] Dr. Brea Causey MCHC (RBC) [Mass/Vol] 33.2 g/dL Normal 29.9-35.2 [facility] Comment on above: Performed By: #### C BC #### [facility] [address] [place] [address] Dr. Brea Causey MCV (RBC) [Entitic vol] 86.9 fL Normal 80.0-94.0 [facility] Comment on above: Performed By: #### C BC #### [facility] [address] [place] [address] Dr. Brea Causey MONO # 0.6 103/ul Normal 0.3-0.8 [facility] Comment on above: Performed By: #### C BC #### [facility] [address] [place] [address] Dr. Brea Causey Monocytes/100 WBC (Bld) 10.3 % Normal 1.7-12.0 [facility] Comment on above: Performed By: #### C BC #### [facility] [address] [place] [address] Dr. Brea Causey NEUT # 4.2 103/ul Normal 1.4-6.5 [facility] Comment on above: Performed By: #### C BC #### [facility] [address] [place] [address] Dr. Brea Causey Neutrophils/100 WBC (Bld) 70.9 % Normal 43.0-75.0 [facility] Comment on above: Performed By: #### C BC #### [facility] [address] [place] [address] Dr. Brea Causey Platelet mean volume (Bld) [Entitic vol] 9.1 fL Critically low 9.5-13.5 [facility] Comment on above: Performed By: #### C BC #### [facility] [address] [address] [address] Brea Causey PLT 248 103/ul Normal 150-450 [facility] Comment on above: Performed By: #### C BC #### [facility] [address] [address] [address] Brea Causey RBC 4.20 106/ul Critically low 4.70-6.10 [facility] Comment on above: Performed By: #### C BC #### [facility] [address] [address] [address] Brea Causey WBC 5.9 103/ul Normal 4.0-11.0 [facility] Comment on above: Performed By: #### C BC #### [facility] [address] [place] [address] Dr. Brea Causey LIPID PROFILEon 08-01-2022 CHOL-HDL RATIO NORM SEE BELOW Normal [facility] Comment on above: Result Comment: 3.3 - 4.4 LOW RISK 4.4 - 7.1 AVERAGE RISK 7.1 - 11.0 MODERATE RISK >11.0 HIGH RISK Performed By: #### U CLINT, CMP, LIPID, DBIL, PHOS, MG #### [facility] [address] [place] [address] Dr. Brea Causey Cholesterol [Mass/Vol] 95 mg/dL Normal <=200 [facility] Comment on above: Performed By: #### U CLINT, CMP, LIPID, DBIL, PHOS, MG #### [facility] [address] [place] [address] Dr. Brea Causey Cholesterol in HDL [Mass/Vol] 49 mg/dL Normal 40-60 [facility] Comment on above: Performed By: #### U CLINT, CMP, LIPID, DBIL, PHOS, MG #### [facility] [address] [place] [address] Dr. Brea Causey Cholesterol in LDL [Mass/Vol] 35.4 mg/dL Normal [facility] Comment on above: Performed By: #### U CLINT, CMP, LIPID, DBIL, PHOS, MG #### [facility] [address] [address] [address] Brea Causey Cholesterol.total/Cho lesterol in HDL [Mass ratio] 1.9 {ratio} Normal [facility] Comment on above: Performed By: #### U CLINT, CMP, LIPID, DBIL, PHOS, MG #### [facility] [address] [address] [address] Brea Causey HDL NORMAL > or = 60 mg/dl - LO W CARDIOVASCULAR RISK <40 mg/dl - HIGH CARDIOVASCULAR RISK Normal [facility] Comment on above: Performed By: #### U CLINT, CMP, LIPID, DBIL, PHOS, MG #### [facility] [address] [address] [address] Brea Causey LDL CALC NORMAL SEE BELOW Normal [facility] Comment on above: Result Comment: <100 mg/dl OPTIMAL 100 - 129 mg/dl NEAR OR ABOVE OPTIMAL 130 - 159 mg/dl BORDERLINE HIGH 160 - 189 mg/dl HIGH >190 mg/dl VERY HIGH Performed By: #### U CLINT, CMP, LIPID, DBIL, PHOS, MG #### [facility] [address] [address] [address] Brea Causey Triglyceride [Mass/Vol] 53 mg/dL Normal <=150 [facility] Comment on above: Performed By: #### U CLINT, CMP, LIPID, DBIL, PHOS, MG #### [facility] [address] [address] [address] Brea Causey VLDL CALC 10.6 mg/dL Normal [facility] Comment on above: Performed By: #### U CLINT, CMP, LIPID, DBIL, PHOS, MG #### [facility] [address] [address] [address] Brea Causey MAGNESIUMon 08-01-2022 Magnesium [Mass/Vol] 1.5 mg/dL Critically low 1.8-2.4 [facility] Comment on above: Performed By: #### U CLINT, CMP, LIPID, DBIL, PHOS, MG #### [facility] [address] [place] [address] Dr. Brea Causey PHOSPHORUSon 08-01-2022 Phosphate [Mass/Vol] 3.8 mg/dL Normal 2.6-4.7 [facility] Comment on above: Performed By: #### U CLINT, CMP, LIPID, DBIL, PHOS, MG #### [facility] [address] [place] [address] Dr. Brea Causey PROF 14(COMP METB)on 023 Albumin [Mass/Vol] 4.1 g/dL Normal 3.4-5.0 [facility] Comment on above: Performed By: #### U CLINT, CMP, LIPID, DBIL, PHOS, MG #### [facility] [address] [place] [address] Dr. Brea Causey Albumin/Globulin [Mass ratio] 1.3 {ratio} Normal [facility] Comment on above: Performed By: #### U CLINT, CMP, LIPID, DBIL, PHOS, MG #### [facility] [address] [place] [address] Dr. Brea Causey ALP [Catalytic activity/Vol] 197 U/L Critically high 46-116 [facility] Comment on above: Performed By: #### U CLINT, CMP, LIPID, DBIL, PHOS, MG #### [facility] [address] [place] [address] Dr. Brea Causey ALT [Catalytic activity/Vol] 26 U/L Normal 16-63 [facility] Comment on above: Performed By: #### U CLINT, CMP, LIPID, DBIL, PHOS, MG #### [facility] [address] [place] [address] Dr. Brea Causey Anion gap [Moles/Vol] 12.6 mmol/L Normal [facility] Comment on above: Performed By: #### U CLINT, CMP, LIPID, DBIL, PHOS, MG #### [facility] [address] [place] [address] Dr. Brea Causey AST [Catalytic activity/Vol] 20 U/L Normal 15-37 [facility] Comment on above: Performed By: #### U CLINT, CMP, LIPID, DBIL, PHOS, MG #### [facility] [address] [address] [address] Brea Causey Bilirubin [Mass/Vol] 0.4 mg/dL Normal 0.2-1.0 [facility] Comment on above: Performed By: #### U CLINT, CMP, LIPID, DBIL, PHOS, MG #### [facility] [address] [address] [address] Brea Causey Calcium [Mass/Vol] 7.9 mg/dL Critically low 8.5-10.1 [facility] Comment on above: Performed By: #### U CLINT, CMP, LIPID, DBIL, PHOS, MG #### [facility] [address] [address] [address] Brea Causey Chloride [Moles/Vol] 97 mmol/L Critically low 98-107 [facility] Comment on above: Performed By: #### U CLINT, CMP, LIPID, DBIL, PHOS, MG #### [facility] [address] [place] [address] Dr. Brea Causey CO2 [Moles/Vol] 28.9 mmol/L Normal 21.0-32.0 [facility] Comment on above: Performed By: #### U CLINT, CMP, LIPID, DBIL, PHOS, MG #### [facility] [address] [place] [address] Dr. Brea Causey Creatinine [Mass/Vol] 0.98 mg/dL Normal 0.70-1.30 [facility] Comment on above: Performed By: #### U CLINT, CMP, LIPID, DBIL, PHOS, MG #### [facility] [address] [place] [address] Dr. Brea Causey EGFR-AF PARAGUAYAN >60 Normal >=60 [facility] Comment on above: Performed By: #### U CLINT, CMP, LIPID, DBIL, PHOS, MG #### [facility] [address] [place] [address] Dr. Brea Causey EGFR-NON AF PARAGUAYAN >60 Normal >=60 [facility] Comment on above: Performed By: #### U CLINT, CMP, LIPID, DBIL, PHOS, MG #### [facility] [address] [address] [address] Brea Causey Globulin (S) [Mass/Vol] 3.2 g/dL Normal [facility] Comment on above: Performed By: #### U CLINT, CMP, LIPID, DBIL, PHOS, MG #### [facility] [address] [place] [address] Dr. Brea Causey Glucose [Mass/Vol] 174 mg/dL Critically high 74-106 [facility] Comment on above: Performed By: #### U CLINT, CMP, LIPID, DBIL, PHOS, MG #### [facility] [address] [place] [address] Dr. Brea Causey Potassium [Moles/Vol] 4.5 mmol/L Normal 3.5-5.1 [facility] Comment on above: Performed By: #### U CLINT, CMP, LIPID, DBIL, PHOS, MG #### [facility] [address] [place] [address] Dr. Brea Causey Protein [Mass/Vol] 7.3 g/dL Normal 6.4-8.2 [facility] Comment on above: Performed By: #### U CLINT, CMP, LIPID, DBIL, PHOS, MG #### [facility] [address] [place] [address] Dr. Brea Causey Sodium [Moles/Vol] 134 mmol/L Critically low 136-145 Th [facility] Comment on above: Performed By: #### U CLINT, CMP, LIPID, DBIL, PHOS, MG #### [facility] [address] [place] [address] Dr. Brea Causey Urea nitrogen [Mass/Vol] 8.0 mg/dL Normal 7.0-18.0 [facility] Comment on above: Performed By: #### U CLINT, CMP, LIPID, DBIL, PHOS, MG #### [facility] [address] [place] [address] Dr. Brea Causey Urea nitrogen/Creatinine [Mass ratio] 8.2 mg/mg Normal [facility] Comment on above: Performed By: #### U CLINT, CMP, LIPID, DBIL, PHOS, MG #### [facility] [address] [place] [address] Dr. Brea Causey URIC ACID SERUMon 08-01-2022 Urate [Mass/Vol] 5.8 mg/dL Normal 3.5-7.2 [facility] Comment on above: Performed By: #### U CLINT, CMP, LIPID, DBIL, PHOS, MG #### [facility] [address] [place] [address] Dr. Brea Causey FK506 (TACROLIMUS) WHOLE BLO ODon 07-07-2022 Tacrolimus (FK506), Blood 3.6 ng/mL Normal 2.0-20.0 [facility] Comment on above: Result Comment: Trou gh (immediately following transplant) 15.0 . Trough (steady state, 2 weeks or more after transplant): 3.0 - 8.0 . Performed by LC-MS/MS technology. Performed By: #### C BC #### [facility] [address] [place] [address] Dr. Brea Causey BILIRUBIN CONJUGATED (DIRECT )on 07-04-2022 BILI, CONJUGATED 0.1 mg/dL Normal 0.0-0.2 [facility] Comment on above: Performed By: #### B KVIRUS #### [facility] [address] [place] [address] Dr. Brea Causey CBC AUTO DIFFon 07-04-2022 BASO # 0.0 103/ul Normal 0.0-0.1 [facility] Comment on above: Performed By: #### U CLINT, CMP, LIPID, DBIL, PHOS, MG #### [facility] [address] [place] [address] Dr. Brea Causey Basophils/100 WBC (Bld) 0.5 % Normal 0.2-2.0 [facility] Comment on above: Performed By: #### U CLINT, CMP, LIPID, DBIL, PHOS, MG #### [facility] [address] [place] [address] Dr. Brea Causey EO # 0.2 103/ul Normal 0.0-0.7 [facility] Comment on above: Performed By: #### U CLINT, CMP, LIPID, DBIL, PHOS, MG #### [facility] [address] [address] [address] Brea Causey Eosinophils/100 WBC (Bld) 2.6 % Normal 0.9-7.0 [facility] Comment on above: Performed By: #### U CLINT, CMP, LIPID, DBIL, PHOS, MG #### [facility] [address] [place] [address] Dr. Brea Causey Erythrocyte distribution width (RBC) [Ratio] 13.3 % Normal 11.0-15.0 [facility] Comment on above: Performed By: #### U CLINT, CMP, LIPID, DBIL, PHOS, MG #### [facility] [address] [place] [address] Dr. Brea Causey Hematocrit (Bld) [Volume fraction] 37.2 % Critically low 42.0-54.0 [facility] Comment on above: Performed By: #### U CLINT, CMP, LIPID, DBIL, PHOS, MG #### [facility] [address] [place] [address] Dr. Brea Causey Hemoglobin (Bld) [Mass/Vol] 12.4 g/dL Critically low 14.0-18.0 [facility] Comment on above: Performed By: #### U CLINT, CMP, LIPID, DBIL, PHOS, MG #### [facility] [address] [place] [address] Dr. Brea Causey IG # 0.09 10e3/ul Critically high 0.00-0.03 [facility] Comment on above: Performed By: #### U CLINT, CMP, LIPID, DBIL, PHOS, MG #### [facility] [address] [place] [address] Dr. Brea Causey IG % 1.4 % Critically high 0.0-0.5 [facility] Comment on above: Performed By: #### U CLINT, CMP, LIPID, DBIL, PHOS, MG #### [facility] [address] [address] [address] Brea Causey LYMPH # 1.0 103/ul Critically low 1.2-3.8 [facility] Comment on above: Performed By: #### U CLINT, CMP, LIPID, DBIL, PHOS, MG #### [facility] [address] [address] [address] Brea Causey Lymphocytes/100 WBC (Bld) 15.2 % Critically low 20.5-60.0 [facility] Comment on above: Performed By: #### U CLINT, CMP, LIPID, DBIL, PHOS, MG #### [facility] [address] [address] [address] Brea Causey MANUAL DIFF REQ NO Normal [facility] Comment on above: Performed By: #### U CLINT, CMP, LIPID, DBIL, PHOS, MG #### [facility] [address] [place] [address] Dr. Brea Causey MCH (RBC) [Entitic mass] 28.8 pg Normal 25.9-34.0 [facility] Comment on above: Performed By: #### U CLINT, CMP, LIPID, DBIL, PHOS, MG #### [facility] [address] [place] [address] Dr. Brea Causey MCHC (RBC) [Mass/Vol] 33.3 g/dL Normal 29.9-35.2 [facility] Comment on above: Performed By: #### U LCINT, CMP, LIPID, DBIL, PHOS, MG #### [facility] [address] [place] [address] Dr. Brea Causey MCV (RBC) [Entitic vol] 86.5 fL Normal 80.0-94.0 [facility] Comment on above: Performed By: #### U CLINT, CMP, LIPID, DBIL, PHOS, MG #### [facility] [address] [place] [address] Dr. Brea Causey MONO # 0.7 103/ul Normal 0.3-0.8 [facility] Comment on above: Performed By: #### U CLINT, CMP, LIPID, DBIL, PHOS, MG #### [facility] [address] [address] [address] Brea Causey Monocytes/100 WBC (Bld) 10.0 % Normal 1.7-12.0 [facility] Comment on above: Performed By: #### U CLINT, CMP, LIPID, DBIL, PHOS, MG #### [facility] [address] [address] [address] Brea Causey NEUT # 4.6 103/ul Normal 1.4-6.5 [facility] Comment on above: Performed By: #### U CLINT, CMP, LIPID, DBIL, PHOS, MG #### [facility] [address] [address] [address] Brea Causey Neutrophils/100 WBC (Bld) 70.3 % Normal 43.0-75.0 [facility] Comment on above: Performed By: #### U CLINT, CMP, LIPID, DBIL, PHOS, MG #### [facility] [address] [address] [address] Brea Causey Platelet mean volume (Bld) [Entitic vol] 8.8 fL Critically low 9.5-13.5 [facility] Comment on above: Performed By: #### U CLINT, CMP, LIPID, DBIL, PHOS, MG #### [facility] [address] [address] [address] Brea Causey PLT 240 103/ul Normal 150-450 [facility] Comment on above: Performed By: #### U CLINT, CMP, LIPID, DBIL, PHOS, MG #### [facility] [address] [place] [address] Dr. Brea Causey RBC 4.30 106/ul Critically low 4.70-6.10 [facility] Comment on above: Performed By: #### U CLINT, CMP, LIPID, DBIL, PHOS, MG #### [facility] [address] [address] [address] Brea Causey WBC 6.5 103/ul Normal 4.0-11.0 [facility] Comment on above: Performed By: #### U CLINT, CMP, LIPID, DBIL, PHOS, MG #### [facility] [address] [address] [address] Brea Causey LIPID PROFILEon 07-04-2022 CHOL-HDL RATIO NORM SEE BELOW Normal [facility] Comment on above: Result Comment: 3.3 - 4.4 LOW RISK 4.4 - 7.1 AVERAGE RISK 7.1 - 11.0 MODERATE RISK >11.0 HIGH RISK Performed By: #### U CLINT, CMP, LIPID, DBIL, PHOS, MG #### [facility] [address] [address] [address] Brea Causey Cholesterol [Mass/Vol] 86 mg/dL Normal <=200 [facility] Comment on above: Performed By: #### U CLINT, CMP, LIPID, DBIL, PHOS, MG #### [facility] [address] [place] [address] Dr. Brea Causey Cholesterol in HDL [Mass/Vol] 44 mg/dL Normal 40-60 [facility] Comment on above: Performed By: #### U CLINT, CMP, LIPID, DBIL, PHOS, MG #### [facility] [address] [address] [address] Brea Causey Cholesterol in LDL [Mass/Vol] 28.0 mg/dL Normal [facility] Comment on above: Performed By: #### U CLINT, CMP, LIPID, DBIL, PHOS, MG #### [facility] [address] [place] [address] Dr. Brea Causey Cholesterol.total/Cho lesterol in HDL [Mass ratio] 2.0 {ratio} Normal [facility] Comment on above: Performed By: #### U CLINT, CMP, LIPID, DBIL, PHOS, MG #### [facility] [address] [place] [address] Dr. Brea Causey HDL NORMAL > or = 60 mg/dl - LO W CARDIOVASCULAR RISK <40 mg/dl - HIGH CARDIOVASCULAR RISK Normal [facility] Comment on above: Performed By: #### U CLINT, CMP, LIPID, DBIL, PHOS, MG #### [facility] [address] [place], [place] [id number] Dr. Brea Causey LDL CALC NORMAL SEE BELOW Normal [facility] Comment on above: Result Comment: <100 mg/dl OPTIMAL 100 - 129 mg/dl NEAR OR ABOVE OPTIMAL 130 - 159 mg/dl BORDERLINE HIGH 160 - 189 mg/dl HIGH >190 mg/dl VERY HIGH Performed By: #### U CLINT, CMP, LIPID, DBIL, PHOS, MG #### [facility] [address] [address] [address] Brea Causey Triglyceride [Mass/Vol] 70 mg/dL Normal <=150 [facility] Comment on above: Performed By: #### U CLINT, CMP, LIPID, DBIL, PHOS, MG #### [facility] [address] [place] [address] Dr. Brea Causey VLDL CALC 14.0 mg/dL Normal [facility] Comment on above: Performed By: #### U CLINT, CMP, LIPID, DBIL, PHOS, MG #### [facility] [address] [place] [address] Dr. Brea Causey MAGNESIUMon 07-04-2022 Magnesium [Mass/Vol] 1.4 mg/dL Critically low 1.8-2.4 [facility] Comment on above: Performed By: #### U CLINT, CMP, LIPID, DBIL, PHOS, MG #### [facility] [address] [place] [address] Dr. Brea Causey PHOSPHORUSon 07-04-2022 Phosphate [Mass/Vol] 4.1 mg/dL Normal 2.6-4.7 [facility] Comment on above: Performed By: #### U CLINT, CMP, LIPID, DBIL, PHOS, MG #### [facility] [address] [place] [address] Dr. Brea Causey PROF 14(COMP METB)on 023 Albumin [Mass/Vol] 4.0 g/dL Normal 3.4-5.0 [facility] Comment on above: Performed By: #### B KVIRUS #### [facility] [address] [place] [address] Dr. Brea Causey Albumin/Globulin [Mass ratio] 1.3 {ratio} Normal [facility] Comment on above: Performed By: #### B KVIRUS #### [facility] [address] [address] [address] Brea Causey ALP [Catalytic activity/Vol] 212 U/L Critically high 46-116 [facility] Comment on above: Performed By: #### B KVIRUS #### [facility] [address] [address] [address] Brea Causey ALT [Catalytic activity/Vol] 31 U/L Normal 16-63 [facility] Comment on above: Performed By: #### B KVIRUS #### [facility] [address] [address] [address] Brea Causey Anion gap [Moles/Vol] 11.9 mmol/L Normal Th [facility] Comment on above: Performed By: #### B KVIRUS #### [facility] [address] [place] [address] Dr. Brea Causey AST [Catalytic activity/Vol] 21 U/L Normal 15-37 [facility] Comment on above: Performed By: #### B KVIRUS #### [facility] [address] [address] [address] Brea Causey Bilirubin [Mass/Vol] 0.3 mg/dL Normal 0.2-1.0 [facility] Comment on above: Performed By: #### B KVIRUS #### [facility] [address] [address] [address] Brea Causey Calcium [Mass/Vol] 8.1 mg/dL Critically low 8.5-10.1 [facility] Comment on above: Performed By: #### B KVIRUS #### [facility] [address] [address] [address] Brea Causey Chloride [Moles/Vol] 97 mmol/L Critically low 98-107 [facility] Comment on above: Performed By: #### B KVIRUS #### [facility] [address] [place] [address] Dr. Brea Causey CO2 [Moles/Vol] 26.8 mmol/L Normal 21.0-32.0 [facility] Comment on above: Performed By: #### B KVIRUS #### [facility] [address] [address] [address] Brea Causey Creatinine [Mass/Vol] 0.99 mg/dL Normal 0.70-1.30 [facility] Comment on above: Performed By: #### B KVIRUS #### [facility] [address] [place] [address] Dr. Brea Causey EGFR-AF PARAGUAYAN >60 Normal >=60 [facility] Comment on above: Performed By: #### B KVIRUS #### [facility] [address] [place] [address] Dr. Brea Causey EGFR-NON AF PARAGUAYAN >60 Normal >=60 [facility] Comment on above: Performed By: #### B KVIRUS #### [facility] [address] [place] [address] Dr. Brea Causey Globulin (S) [Mass/Vol] 3.2 g/dL Normal [facility] Comment on above: Performed By: #### B KVIRUS #### [facility] [address] [place] [address] Dr. Brea Causey Glucose [Mass/Vol] 169 mg/dL Critically high 74-106 [facility] Comment on above: Performed By: #### B KVIRUS #### [facility] [address] [place] [address] Dr. Brea Causey Potassium [Moles/Vol] 4.7 mmol/L Normal 3.5-5.1 [facility] Comment on above: Performed By: #### B KVIRUS #### [facility] [address] [place] [address] Dr. Brea Causey Protein [Mass/Vol] 7.2 g/dL Normal 6.4-8.2 [facility] Comment on above: Performed By: #### B KVIRUS #### [facility] [address] [place] [address] Dr. Brea Causey Sodium [Moles/Vol] 131 mmol/L Critically low 136-145 [facility] Comment on above: Performed By: #### B KVIRUS #### [facility] [address] [address] [address] Brea Causey Urea nitrogen [Mass/Vol] 9.0 mg/dL Normal 7.0-18.0 [facility] Comment on above: Performed By: #### B KVIRUS #### [facility] [address] [address] [address] Brea Causey Urea nitrogen/Creatinine [Mass ratio] 9.1 mg/mg Normal [facility] Comment on above: Performed By: #### B KVIRUS #### [facility] [address] [address] [address] Brea Causey URIC ACID SERUMon 07-04-2022 Urate [Mass/Vol] 6.1 mg/dL Normal 3.5-7.2 [facility] Comment on above: Performed By: #### U CLINT, CMP, LIPID, DBIL, PHOS, MG #### [facility] [address] [address] [address] Brea Causey TESTOSTERONE, FREE,DIRECT, T OTALon 05-28-2022 Free Testosterone(Direct) 5.9 pg/mL Critically low 6.6-18.1 [facility] Comment on above: Result Comment: Perf ormed at: BN Performed By: #### U CLINT, CMP, LIPID, DBIL, PHOS, MG #### [facility] [address] [place] [address] Dr. Brea Causey Testosterone [Mass/Vol] 513 ng/dL Normal 264-916 [facility] Comment on above: Result Comment: Adul t male reference interval is based on a population of healthy nonobese males (BMI <30) between 19 and 39 years old. Steven, et.al. JCEM 2017,102;5260-4467. PMID: [id number]. Performed at: CB Performed By: #### U CLINT, CMP, LIPID, DBIL, PHOS, MG #### [facility] [address] [id number] [address] Brea Causey FK506 (TACROLIMUS) WHOLE BLO ODon 05-26-2022 Tacrolimus (FK506), Blood 3.9 ng/mL Normal 2.0-20.0 [facility] Comment on above: Result Comment: Trou gh (immediately following transplant) 15.0 . Trough (steady state, 2 weeks or more after transplant): 3.0 - 8.0 . Performed by LC-MS/MS technology. Performed By: #### B KVIRUS #### [facility] [address] [place] [address] Dr. Brea Causey BK VIRUS PCR QUANTon 023 BKV DNA QUANT PCR PLASMA Negative Normal Negative [facility] Comment on above: Result Comment: No B K DNA detected. . The linear range of the assay is 22 - 100,000,000 IU/mL. Performed By: #### U CLINT, CMP, LIPID, DBIL, PHOS, MG #### [facility] [address] [place] [address] Dr. Brea Causey Log10 BKV DNA Plasma Normal [facility] Comment on above: Performed By: #### U CLINT, CMP, LIPID, DBIL, PHOS, MG #### [facility] [address] [place] [address] Dr. Brea Causey BILIRUBIN CONJUGATED (DIRECT )on 05-23-2022 BILI, CONJUGATED 0.2 mg/dL Normal 0.0-0.2 [facility] Comment on above: Performed By: #### C BC #### [facility] [address] [place] [address] Dr. Brea Causey CBC AUTO DIFFon 05-23-2022 BASO # 0.0 103/ul Normal 0.0-0.1 [facility] Comment on above: Performed By: #### B KVIRUS #### [facility] [address] [place] [address] Dr. Brea Causey Basophils/100 WBC (Bld) 0.6 % Normal 0.2-2.0 [facility] Comment on above: Performed By: #### B KVIRUS #### [facility] [address] [place] [address] Dr. Brea Causey EO # 0.1 103/ul Normal 0.0-0.7 [facility] Comment on above: Performed By: #### B KVIRUS #### [facility] [address] [address] [address] Brea Causey Eosinophils/100 WBC (Bld) 1.7 % Normal 0.9-7.0 [facility] Comment on above: Performed By: #### B KVIRUS #### [facility] [address] [address] [address] Brea Causey Erythrocyte distribution width (RBC) [Ratio] 13.4 % Normal 11.0-15.0 [facility] Comment on above: Performed By: #### B KVIRUS #### [facility] [address] [place] [address] Dr. Brea Causey Hematocrit (Bld) [Volume fraction] 38.8 % Critically low 42.0-54.0 [facility] Comment on above: Performed By: #### B KVIRUS #### [facility] [address] [place] [address] Dr. Brea Causey Hemoglobin (Bld) [Mass/Vol] 12.4 g/dL Critically low 14.0-18.0 [facility] Comment on above: Performed By: #### B KVIRUS #### [facility] [address] [place] [address] Dr. Brea Causey IG # 0.07 10e3/ul Critically high 0.00-0.03 [facility] Comment on above: Performed By: #### B KVIRUS #### [facility] [address] [place] [address] Dr. Brea Causey IG % 1.1 % Critically high 0.0-0.5 [facility] Comment on above: Performed By: #### B KVIRUS #### [facility] [address] [place] [address] Dr. Brea Causey LYMPH # 0.9 103/ul Critically low 1.2-3.[address] [facility] Comment on above: Performed By: #### B KVIRUS #### [facility] [address] [place] [address] Dr. Brea Causey Lymphocytes/100 WBC (Bld) 14.1 % Critically low 20.5-60.0 [facility] Comment on above: Performed By: #### B KVIRUS #### [facility] [address] [place] [address] Dr. Brea Causey MANUAL DIFF REQ NO Normal [facility] Comment on above: Performed By: #### B KVIRUS #### [facility] [address] [place] [address] Dr. Brea Causey MCH (RBC) [Entitic mass] 29.3 pg Normal 25.9-34.0 [facility] Comment on above: Performed By: #### B KVIRUS #### [facility] [address] [place] [address] Dr. Brea Causey MCHC (RBC) [Mass/Vol] 32.0 g/dL Normal 29.9-35.2 [facility] Comment on above: Performed By: #### B KVIRUS #### [facility] [address] [place] [address] Dr. Brea Causey MCV (RBC) [Entitic vol] 91.7 fL Normal 80.0-94.0 [facility] Comment on above: Performed By: #### B KVIRUS #### [facility] [address] [place] [address] Dr. Brea Causey MONO # 0.7 103/ul Normal 0.3-0.8 [facility] Comment on above: Performed By: #### B KVIRUS #### [facility] [address] [place] [address] Dr. Brea Causey Monocytes/100 WBC (Bld) 10.0 % Normal 1.7-12.0 [facility] Comment on above: Performed By: #### B KVIRUS #### [facility] [address] [place] [address] Dr. Brea Causey NEUT # 4.7 103/ul Normal 1.4-6.5 [facility] Comment on above: Performed By: #### B KVIRUS #### [facility] [address] [place] [address] Dr. Brea Causey Neutrophils/100 WBC (Bld) 72.5 % Normal 43.0-75.0 [facility] Comment on above: Performed By: #### B KVIRUS #### [facility] [address] [address] [address] Brea Causey Platelet mean volume (Bld) [Entitic vol] 9.4 fL Critically low 9.5-13.5 [facility] Comment on above: Performed By: #### B KVIRUS #### [facility] [address] [address] [address] Brea Causey PLT 256 103/ul Normal 150-450 [facility] Comment on above: Performed By: #### B KVIRUS #### [facility] [address] [address] [address] Brea Causey RBC 4.23 106/ul Critically low 4.70-6.10 [facility] Comment on above: Performed By: #### B KVIRUS #### [facility] [address] [place] [address] Dr. Brea Causey WBC 6.5 103/ul Normal 4.0-11.0 [facility] Comment on above: Performed By: #### B KVIRUS #### [facility] [address] [address] [address] Brea Causey GLYCOHEMOGLOBIN A1Con 2022 ADA RECOMMENDATION SEE BELOW Normal [facility] Comment on above: Result Comment: ADA RECOMMENDED LIMIT 4.0 - 6.0 ADA THERAPEUTIC TARGET < 7.0 ACTION SUGGESTED > 7.0 Performed By: #### U CLINT, CMP, LIPID, DBIL, PHOS, MG #### [facility] [address] [address] [address] Brea Causey Glucose [Mass/Vol] 160 mg/dL Normal [facility] Comment on above: Performed By: #### U CLINT, CMP, LIPID, DBIL, PHOS, MG #### [facility] [address] [address] [address] Brea Causey HbA1c (Bld) [Mass fraction] 7.2 % Critically high 4.5-6.2 [facility] Comment on above: Performed By: #### U CLINT, CMP, LIPID, DBIL, PHOS, MG #### [facility] [address] [id number] [address] Brea Causey LIPID PROFILEon 05-23-2022 CHOL-HDL RATIO NORM SEE BELOW Normal [facility] Comment on above: Result Comment: 3.3 - 4.4 LOW RISK 4.4 - 7.1 AVERAGE RISK 7.1 - 11.0 MODERATE RISK >11.0 HIGH RISK Performed By: #### C BC #### [facility] [address] [address] [address] Brea Causey Cholesterol [Mass/Vol] 87 mg/dL Normal <=200 [facility] Comment on above: Performed By: #### C BC #### [facility] [address] [address] [address] Brea Causey Cholesterol in HDL [Mass/Vol] 54 mg/dL Normal 40-60 [facility] Comment on above: Performed By: #### C BC #### [facility] [address] [address] [address] Brea Causey Cholesterol in LDL [Mass/Vol] 24.6 mg/dL Normal [facility] Comment on above: Performed By: #### C BC #### [facility] [address] [address] [address] Brea Causey Cholesterol.total/Cho lesterol in HDL [Mass ratio] 1.6 {ratio} Normal [facility] Comment on above: Performed By: #### C BC #### [facility] [address] [address] [address] Brea Causey HDL NORMAL > or = 60 mg/dl - LO W CARDIOVASCULAR RISK <40 mg/dl - HIGH CARDIOVASCULAR RISK Normal [facility] Comment on above: Performed By: #### C BC #### [facility] [address] [id number] [address] Brea Causey LDL CALC NORMAL SEE BELOW Normal [facility] Comment on above: Result Comment: <100 mg/dl OPTIMAL 100 - 129 mg/dl NEAR OR ABOVE OPTIMAL 130 - 159 mg/dl BORDERLINE HIGH 160 - 189 mg/dl HIGH >190 mg/dl VERY HIGH Performed By: #### C BC #### [facility] [address] [place] [address] Dr. Brea Causey Triglyceride [Mass/Vol] 42 mg/dL Normal <=150 [facility] Comment on above: Performed By: #### C BC #### [facility] [address] [place] [address] Dr. Brea Causey VLDL CALC 8.4 mg/dL Normal [facility] Comment on above: Performed By: #### C BC #### [facility] [address] [place] [address] Dr. Brea Causey MAGNESIUMon 05-23-2022 Magnesium [Mass/Vol] 1.4 mg/dL Critically low 1.8-2.4 [facility] Comment on above: Performed By: #### C BC #### [facility] [address] [place] [address] Dr. Brea Causey PHOSPHORUSon 05-23-2022 Phosphate [Mass/Vol] 3.6 mg/dL Normal 2.6-4.7 [facility] Comment on above: Performed By: #### C BC #### [facility] [address] [place] [address] Dr. Brea Causey PROF 14(COMP METB)on 023 Albumin [Mass/Vol] 3.9 g/dL Normal 3.4-5.0 [facility] Comment on above: Performed By: #### C BC #### [facility] [address] [place] [address] Dr. Brea Causey Albumin/Globulin [Mass ratio] 1.2 {ratio} Normal [facility] Comment on above: Performed By: #### C BC #### [facility] [address] [place] [address] Dr. Brea Causey ALP [Catalytic activity/Vol] 190 U/L Critically high 46-116 [facility] Comment on above: Performed By: #### C BC #### [facility] [address] [place] [address] Dr. Brea Causey ALT [Catalytic activity/Vol] 26 U/L Normal 16-63 [facility] Comment on above: Performed By: #### C BC #### [facility] [address] [address] [address] Brea Causey Anion gap [Moles/Vol] 13.1 mmol/L Normal [facility] Comment on above: Performed By: #### C BC #### [facility] [address] [place] [address] Dr. Brea Causey AST [Catalytic activity/Vol] 18 U/L Normal 15-37 [facility] Comment on above: Performed By: #### C BC #### [facility] [address] [address] [address] Brea Causey Bilirubin [Mass/Vol] 0.4 mg/dL Normal 0.2-1.0 [facility] Comment on above: Performed By: #### C BC #### [facility] [address] [place] [address] Dr. Brea Causey Calcium [Mass/Vol] 7.8 mg/dL Critically low 8.5-10.1 [facility] Comment on above: Performed By: #### C BC #### [facility] [address] [place] [address] Dr. Brea Causey Chloride [Moles/Vol] 95 mmol/L Critically low 98-107 [facility] Comment on above: Performed By: #### C BC #### [facility] [address] [place] [address] Dr. Brea Causey CO2 [Moles/Vol] 28.8 mmol/L Normal 21.0-32.0 [facility] Comment on above: Performed By: #### C BC #### [facility] [address] [place] [address] Dr. Brea Causey Creatinine [Mass/Vol] 1.03 mg/dL Normal 0.70-1.30 [facility] Comment on above: Performed By: #### C BC #### [facility] [address] [place] [address] Dr. Brea Causey EGFR-AF PARAGUAYAN >60 Normal >=60 [facility] Comment on above: Performed By: #### C BC #### [facility] [address] [place] [address] Dr. Brea Causey EGFR-NON AF PARAGUAYAN >60 Normal >=60 [facility] Comment on above: Performed By: #### C BC #### [facility] [address] [place] [address] Dr. Brea Causey Globulin (S) [Mass/Vol] 3.2 g/dL Normal [facility] Comment on above: Performed By: #### C BC #### [facility] [address] [address] [address] Brea Causey Glucose [Mass/Vol] 155 mg/dL Critically high 74-106 [facility] Comment on above: Performed By: #### C BC #### [facility] [address] [place] [address] Dr. Brea Causey Potassium [Moles/Vol] 4.9 mmol/L Normal 3.5-5.1 [facility] Comment on above: Performed By: #### C BC #### [facility] [address] [place] [address] Dr. Brea Causey Protein [Mass/Vol] 7.1 g/dL Normal 6.4-8.2 [facility] Comment on above: Performed By: #### C BC #### [facility] [address] [place] [address] Dr. Brea Causey Sodium [Moles/Vol] 132 mmol/L Critically low 136-145 [facility] Comment on above: Performed By: #### C BC #### [facility] [address] [place] [address] Dr. Brea Causey Urea nitrogen [Mass/Vol] 8.0 mg/dL Normal 7.0-18.0 [facility] Comment on above: Performed By: #### C BC #### [facility] [address] [place] [address] Dr. Brea Causey Urea nitrogen/Creatinine [Mass ratio] 7.8 mg/mg Normal [facility] Comment on above: Performed By: #### C BC #### [facility] [address] [place] [address] Dr. Brea Causey URIC ACID SERUMon 05-23-2022 Urate [Mass/Vol] 5.6 mg/dL Normal 3.5-7.2 [facility] Comment on above: Performed By: #### C BC #### [facility] [address] [place] [address] Dr. Brea Causey TESTOSTERONE, FREE,DIRECT, T OTALon 05-03-2022 Free Testosterone(Direct) 7.4 pg/mL Normal 6.6-18.1 [facility] Comment on above: Result Comment: Perf ormed at: BN Performed By: #### U CLINT, CMP, LIPID, DBIL, PHOS, MG #### [facility] [address] [address] [address] Brea Causey Testosterone [Mass/Vol] 494 ng/dL Normal 264-916 [facility] Comment on above: Result Comment: Adul t male reference interval is based on a population of healthy nonobese males (BMI <30) between 19 and 39 years old. Steven et.al. JCEM 2017,102;8004-4349. PMID: [id number]. Performed at: CB Performed By: #### U CLINT, CMP, LIPID, DBIL, PHOS, MG #### [facility] [address] [place], [place] [id number] Dr. Brea Causey FK506 (TACROLIMUS) WHOLE BLO ODon 05-02-2022 Tacrolimus (FK506), Blood 4.3 ng/mL Normal 2.0-20.0 [facility] Comment on above: Result Comment: Trou gh (immediately following transplant) 15.0 . Trough (steady state, 2 weeks or more after transplant): 3.0 - 8.0 . Performed by LC-MS/MS technology. Performed By: #### C BC #### [facility] [address] [place], [place] [id number] Dr. Brea Causey BILIRUBIN CONJUGATED (DIRECT )on 04-30-2022 BILI, CONJUGATED 0.1 mg/dL Normal 0.0-0.2 [facility] Comment on above: Performed By: #### U CLINT, CMP, LIPID, DBIL, PHOS, MG #### [facility] [address] [id number] [address] Brea Causey CBC AUTO DIFFon 04-30-2022 BASO # 0.0 103/ul Normal 0.0-0.1 [facility] Comment on above: Performed By: #### U CLINT, CMP, LIPID, DBIL, PHOS, MG #### [facility] [address] [place] [address] Dr. Brea Causey Basophils/100 WBC (Bld) 0.5 % Normal 0.2-2.0 [facility] Comment on above: Performed By: #### U CLINT, CMP, LIPID, DBIL, PHOS, MG #### [facility] [address] [place] [address] Dr. Brea Causey EO # 0.1 103/ul Normal 0.0-0.7 [facility] Comment on above: Performed By: #### U CLINT, CMP, LIPID, DBIL, PHOS, MG #### [facility] [address] [place] [address] Dr. Brea Causey Eosinophils/100 WBC (Bld) 2.1 % Normal 0.9-7.0 [facility] Comment on above: Performed By: #### U CLINT, CMP, LIPID, DBIL, PHOS, MG #### [facility] [address] [place] [address] Dr. Brea Causey Erythrocyte distribution width (RBC) [Ratio] 13.2 % Normal 11.0-15.0 [facility] Comment on above: Performed By: #### U CLINT, CMP, LIPID, DBIL, PHOS, MG #### [facility] [address] [place] [address] Dr. Brea Causey Hematocrit (Bld) [Volume fraction] 37.0 % Critically low 42.0-54.0 [facility] Comment on above: Performed By: #### U CLINT, CMP, LIPID, DBIL, PHOS, MG #### [facility] [address] [place] [address] Dr. Brea Causey Hemoglobin (Bld) [Mass/Vol] 12.4 g/dL Critically low 14.0-18.0 [facility] Comment on above: Performed By: #### U CLINT, CMP, LIPID, DBIL, PHOS, MG #### [facility] [address] [address] [address] Brea Causey IG # 0.05 10e3/ul Critically high 0.00-0.03 [facility] Comment on above: Performed By: #### U CLINT, CMP, LIPID, DBIL, PHOS, MG #### [facility] [address] [place] [address] Dr. Brea Causey IG % 0.9 % Critically high 0.0-0.5 [facility] Comment on above: Performed By: #### U CLINT, CMP, LIPID, DBIL, PHOS, MG #### [facility] [address] [place] [address] Dr. Brea Causey LYMPH # 1.0 103/ul Critically low 1.2-3.8 [facility] Comment on above: Performed By: #### U CLINT, CMP, LIPID, DBIL, PHOS, MG #### [facility] [address] [place] [address] Dr. Bera Causey Lymphocytes/100 WBC (Bld) 16.4 % Critically low 20.5-60.0 [facility] Comment on above: Performed By: #### U CLINT, CMP, LIPID, DBIL, PHOS, MG #### [facility] [address] [place] [address] Dr. Brea Causey MANUAL DIFF REQ NO Normal [facility] Comment on above: Performed By: #### U CLINT, CMP, LIPID, DBIL, PHOS, MG #### [facility] [address] [place] [address] Dr. Brea Causey MCH (RBC) [Entitic mass] 29.0 pg Normal 25.9-34.0 [facility] Comment on above: Performed By: #### U CLINT, CMP, LIPID, DBIL, PHOS, MG #### [facility] [address] [place] [address] Dr. Brea Causey MCHC (RBC) [Mass/Vol] 33.5 g/dL Normal 29.9-35.2 [facility] Comment on above: Performed By: #### U CLINT, CMP, LIPID, DBIL, PHOS, MG #### [facility] [address] [place] [address] Dr. Brea Causey MCV (RBC) [Entitic vol] 86.7 fL Normal 80.0-94.0 [facility] Comment on above: Performed By: #### U CLINT, CMP, LIPID, DBIL, PHOS, MG #### [facility] [address] [place] [address] Dr. Brea Causey MONO # 0.7 103/ul Normal 0.3-0.8 [facility] Comment on above: Performed By: #### U CLINT, CMP, LIPID, DBIL, PHOS, MG #### [facility] [address] [place] [address] Dr. Brea Causey Monocytes/100 WBC (Bld) 11.6 % Normal 1.7-12.0 [facility] Comment on above: Performed By: #### U CLINT, CMP, LIPID, DBIL, PHOS, MG #### [facility] [address] [place] [address] Dr. Brea Causey NEUT # 4.0 103/ul Normal 1.4-6.5 [facility] Comment on above: Performed By: #### U CLINT, CMP, LIPID, DBIL, PHOS, MG #### [facility] [address] [place] [address] Dr. Brea Causey Neutrophils/100 WBC (Bld) 68.5 % Normal 43.0-75.0 [facility] Comment on above: Performed By: #### U CLINT, CMP, LIPID, DBIL, PHOS, MG #### [facility] [address] [place] [address] Dr. Brea Causey Platelet mean volume (Bld) [Entitic vol] 9.2 fL Critically low 9.5-13.5 [facility] Comment on above: Performed By: #### U CLINT, CMP, LIPID, DBIL, PHOS, MG #### [facility] [address] [place] [address] Dr. Brea Causey PLT 231 103/ul Normal 150-450 [facility] Comment on above: Performed By: #### U CLINT, CMP, LIPID, DBIL, PHOS, MG #### [facility] [address] [address] [address] Brea Causey RBC 4.27 106/ul Critically low 4.70-6.10 [facility] Comment on above: Performed By: #### U CLINT, CMP, LIPID, DBIL, PHOS, MG #### [facility] [address] [address] [address] Brea Causey WBC 5.9 103/ul Normal 4.0-11.0 [facility] Comment on above: Performed By: #### U CLINT, CMP, LIPID, DBIL, PHOS, MG #### [facility] [address] [place] [address] Dr. Brea Causey LIPID PROFILEon 04-30-2022 CHOL-HDL RATIO NORM SEE BELOW Normal [facility] Comment on above: Result Comment: 3.3 - 4.4 LOW RISK 4.4 - 7.1 AVERAGE RISK 7.1 - 11.0 MODERATE RISK >11.0 HIGH RISK Performed By: #### U CLINT, CMP, LIPID, DBIL, PHOS, MG #### [facility] [address] [place] [address] Dr. Brea Causey Cholesterol [Mass/Vol] 78 mg/dL Normal <=200 [facility] Comment on above: Performed By: #### U CLINT, CMP, LIPID, DBIL, PHOS, MG #### [facility] [address] [address] [address] Brea Causey Cholesterol in HDL [Mass/Vol] 41 mg/dL Normal 40-60 [facility] Comment on above: Performed By: #### U CLINT, CMP, LIPID, DBIL, PHOS, MG #### [facility] [address] [place] [address] Dr. Brea Causey Cholesterol in LDL [Mass/Vol] 17.8 mg/dL Normal [facility] Comment on above: Performed By: #### U CLINT, CMP, LIPID, DBIL, PHOS, MG #### [facility] [address] [address] [address] Brea Causey Cholesterol.total/Cho lesterol in HDL [Mass ratio] 1.9 {ratio} Normal [facility] Comment on above: Performed By: #### U CLINT, CMP, LIPID, DBIL, PHOS, MG #### [facility] [address] [address] [address] Brea Causey HDL NORMAL > or = 60 mg/dl - LO W CARDIOVASCULAR RISK <40 mg/dl - HIGH CARDIOVASCULAR RISK Normal [facility] Comment on above: Performed By: #### U CLINT, CMP, LIPID, DBIL, PHOS, MG #### [facility] [address] [address] [address] Brea Causey LDL CALC NORMAL SEE BELOW Normal [facility] Comment on above: Result Comment: <100 mg/dl OPTIMAL 100 - 129 mg/dl NEAR OR ABOVE OPTIMAL 130 - 159 mg/dl BORDERLINE HIGH 160 - 189 mg/dl HIGH >190 mg/dl VERY HIGH Performed By: #### U CLINT, CMP, LIPID, DBIL, PHOS, MG #### [facility] [address] [address] [address] Brea Causey Triglyceride [Mass/Vol] 96 mg/dL Normal <=150 [facility] Comment on above: Performed By: #### U CLINT, CMP, LIPID, DBIL, PHOS, MG #### [facility] [address] [address] [address] Brea Causey VLDL CALC 19.2 mg/dL Normal [facility] Comment on above: Performed By: #### U CLINT, CMP, LIPID, DBIL, PHOS, MG #### [facility] [address] [address] [address] Brea Causey MAGNESIUMon 04-30-2022 Magnesium [Mass/Vol] 1.7 mg/dL Critically low 1.8-2.4 [facility] Comment on above: Performed By: #### U CLINT, CMP, LIPID, DBIL, PHOS, MG #### [facility] [address] [address] [address] Brea Causey PHOSPHORUSon 04-30-2022 Phosphate [Mass/Vol] 3.6 mg/dL Normal 2.6-4.7 [facility] Comment on above: Performed By: #### U CLINT, CMP, LIPID, DBIL, PHOS, MG #### [facility] [address] [place] [address] Dr. Brea Causey PROF 14(COMP METB)on 04-30- 022 Albumin [Mass/Vol] 4.0 g/dL Normal 3.4-5.0 [facility] Comment on above: Performed By: #### U CLINT, CMP, LIPID, DBIL, PHOS, MG #### [facility] [address] [place] [address] Dr. Brea Causey Albumin/Globulin [Mass ratio] 1.3 {ratio} Normal [facility] Comment on above: Performed By: #### U CLINT, CMP, LIPID, DBIL, PHOS, MG #### [facility] [address] [place] [address] Dr. Brea Causey ALP [Catalytic activity/Vol] 196 U/L Critically high 46-116 [facility] Comment on above: Performed By: #### U CLINT, CMP, LIPID, DBIL, PHOS, MG #### [facility] [address] [place] [address] Dr. Brea Causey ALT [Catalytic activity/Vol] 21 U/L Normal 16-63 [facility] Comment on above: Performed By: #### U CLINT, CMP, LIPID, DBIL, PHOS, MG #### [facility] [address] [place] [address] Dr. Brea Causey Anion gap [Moles/Vol] 10.5 mmol/L Normal [facility] Comment on above: Performed By: #### U CLINT, CMP, LIPID, DBIL, PHOS, MG #### [facility] [address] [place] [address] Dr. Brea Causey AST [Catalytic activity/Vol] 16 U/L Normal 15-37 [facility] Comment on above: Performed By: #### U CLINT, CMP, LIPID, DBIL, PHOS, MG #### [facility] [address] [place] [address] Dr. Brea Causey Bilirubin [Mass/Vol] 0.3 mg/dL Normal 0.2-1.0 [facility] Comment on above: Performed By: #### U CLINT, CMP, LIPID, DBIL, PHOS, MG #### [facility] [address] [address] [address] Brea Causey Calcium [Mass/Vol] 8.6 mg/dL Normal 8.5-10.1 [facility] Comment on above: Performed By: #### U CLINT, CMP, LIPID, DBIL, PHOS, MG #### [facility] [address] [address] [address] Brea Causey Chloride [Moles/Vol] 95 mmol/L Critically low 98-107 [facility] Comment on above: Performed By: #### U CLINT, CMP, LIPID, DBIL, PHOS, MG #### [facility] [address] [address] [address] Brea Causey CO2 [Moles/Vol] 30.9 mmol/L Normal 21.0-32.0 [facility] Comment on above: Performed By: #### U CLINT, CMP, LIPID, DBIL, PHOS, MG #### [facility] [address] [address] [address] Brea Causey Creatinine [Mass/Vol] 1.00 mg/dL Normal 0.70-1.30 [facility] Comment on above: Performed By: #### U CLINT, CMP, LIPID, DBIL, PHOS, MG #### [facility] [address] [place] [address] Dr. Brea Causey EGFR-AF PARAGUAYAN >60 Normal >=60 [facility] Comment on above: Performed By: #### U CLINT, CMP, LIPID, DBIL, PHOS, MG #### [facility] [address] [address] [address] Brea Causey EGFR-NON AF PARAGUAYAN >60 Normal >=60 [facility] Comment on above: Performed By: #### U CLINT, CMP, LIPID, DBIL, PHOS, MG #### [facility] [address] [place] [address] Dr. Brea Causey Globulin (S) [Mass/Vol] 3.2 g/dL Normal [facility] Comment on above: Performed By: #### U CLINT, CMP, LIPID, DBIL, PHOS, MG #### [facility] [address] [place] [address] Dr. Brea Causey Glucose [Mass/Vol] 160 mg/dL Critically high 74-106 [facility] Comment on above: Performed By: #### U CLINT, CMP, LIPID, DBIL, PHOS, MG #### [facility] [address] [place] [address] Dr. Brea Causey Potassium [Moles/Vol] 5.4 mmol/L Critically high 3.5-5.1 [facility] Comment on above: Performed By: #### U CLINT, CMP, LIPID, DBIL, PHOS, MG #### [facility] [address] [place] [address] Dr. Brea Causey Protein [Mass/Vol] 7.2 g/dL Normal 6.4-8.2 [facility] Comment on above: Performed By: #### U CLINT, CMP, LIPID, DBIL, PHOS, MG #### [facility] [address] [place] [address] Dr. Brea Causey Sodium [Moles/Vol] 131 mmol/L Critically low 136-145 [facility] Comment on above: Performed By: #### U CLINT, CMP, LIPID, DBIL, PHOS, MG #### [facility] [address] [place] [address] Dr. Brea Causey Urea nitrogen [Mass/Vol] 11.0 mg/dL Normal 7.0-18.0 [facility] Comment on above: Performed By: #### U CLINT, CMP, LIPID, DBIL, PHOS, MG #### [facility] [address] [place] [address] Dr. Brea Causey Urea nitrogen/Creatinine [Mass ratio] 11.0 mg/mg Normal [facility] Comment on above: Performed By: #### U CLINT, CMP, LIPID, DBIL, PHOS, MG #### [facility] [address] [place] [address] Dr. Brea Causey URIC ACID SERUMon 04-30-2022 Urate [Mass/Vol] 5.9 mg/dL Normal 3.5-7.2 [facility] Comment on above: Performed By: #### U CLINT, CMP, LIPID, DBIL, PHOS, MG #### [facility] [address] [place] [address] Dr. Brea Cauesy FK506 (TACROLIMUS) WHOLE BLO ODon 04-06-2022 Tacrolimus (FK506), Blood 3.0 ng/mL Normal 2.0-20.0 [facility] Comment on above: Result Comment: Trou gh (immediately following transplant) 15.0 . Trough (steady state, 2 weeks or more after transplant): 3.0 - 8.0 . Performed by LC-MS/MS technology. Performed By: #### U CLINT, CMP, LIPID, DBIL, PHOS, MG #### [facility] [address] [place] [address] Dr. Brea Causey BILIRUBIN CONJUGATED (DIRECT )on 04-03-2022 BILI, CONJUGATED 0.1 mg/dL Normal 0.0-0.2 [facility] Comment on above: Performed By: #### U CLINT, CMP, LIPID, DBIL, PHOS, MG #### [facility] [address] [place] [address] Dr. Brea Causey CBC AUTO DIFFon 04-03-2022 BASO # 0.0 103/ul Normal 0.0-0.1 [facility] Comment on above: Performed By: #### U CLINT, CMP, LIPID, DBIL, PHOS, MG #### [facility] [address] [place] [address] Dr. Brea Causey Basophils/100 WBC (Bld) 0.5 % Normal 0.2-2.0 [facility] Comment on above: Performed By: #### U CLINT, CMP, LIPID, DBIL, PHOS, MG #### [facility] [address] [place] [address] Dr. Brea Causey EO # 0.1 103/ul Normal 0.0-0.7 [facility] Comment on above: Performed By: #### U CLINT, CMP, LIPID, DBIL, PHOS, MG #### [facility] [address] [place] [address] Dr. Brea Causey Eosinophils/100 WBC (Bld) 2.5 % Normal 0.9-7.0 [facility] Comment on above: Performed By: #### U CLINT, CMP, LIPID, DBIL, PHOS, MG #### [facility] [address] [place] [address] Dr. Brea Causey Erythrocyte distribution width (RBC) [Ratio] 13.3 % Normal 11.0-15.0 [facility] Comment on above: Performed By: #### U CLINT, CMP, LIPID, DBIL, PHOS, MG #### [facility] [address] [place] [address] Dr. Brea Causey Hematocrit (Bld) [Volume fraction] 36.4 % Critically low 42.0-54.0 [facility] Comment on above: Performed By: #### U CLINT, CMP, LIPID, DBIL, PHOS, MG #### [facility] [address] [place] [address] Dr. Brea Causey Hemoglobin (Bld) [Mass/Vol] 12.3 g/dL Critically low 14.0-18.0 [facility] Comment on above: Performed By: #### U CLINT, CMP, LIPID, DBIL, PHOS, MG #### [facility] [address] [place] [address] Dr. Brea Causey IG # 0.03 10e3/ul Normal 0.00-0.03 [facility] Comment on above: Performed By: #### U CLINT, CMP, LIPID, DBIL, PHOS, MG #### [facility] [address] [place] [address] Dr. Brea Causey IG % 0.5 % Normal 0.0-0.5 [facility] Comment on above: Performed By: #### U CLINT, CMP, LIPID, DBIL, PHOS, MG #### [facility] [address] [place] [address] Dr. Brea Causey LYMPH # 0.9 103/ul Critically low 1.2-3.8 [facility] Comment on above: Performed By: #### U CLINT, CMP, LIPID, DBIL, PHOS, MG #### [facility] [address] [address] [address] Brea Causey Lymphocytes/100 WBC (Bld) 16.9 % Critically low 20.5-60.0 [facility] Comment on above: Performed By: #### U CLINT, CMP, LIPID, DBIL, PHOS, MG #### [facility] [address] [address] [address] Brea Causey MANUAL DIFF REQ NO Normal [facility] Comment on above: Performed By: #### U CLINT, CMP, LIPID, DBIL, PHOS, MG #### [facility] [address] [place] [address] Dr. Brea Causey MCH (RBC) [Entitic mass] 29.3 pg Normal 25.9-34.0 [facility] Comment on above: Performed By: #### U CLINT, CMP, LIPID, DBIL, PHOS, MG #### [facility] [address] [place] [address] Dr. Brea Causey MCHC (RBC) [Mass/Vol] 33.8 g/dL Normal 29.9-35.2 [facility] Comment on above: Performed By: #### U CLINT, CMP, LIPID, DBIL, PHOS, MG #### [facility] [address] [place] [address] Dr. Brea Causey MCV (RBC) [Entitic vol] 86.7 fL Normal 80.0-94.0 [facility] Comment on above: Performed By: #### U CLINT, CMP, LIPID, DBIL, PHOS, MG #### [facility] [address] [place] [address] Dr. Brea Causey MONO # 0.6 103/ul Normal 0.3-0.8 [facility] Comment on above: Performed By: #### U CLINT, CMP, LIPID, DBIL, PHOS, MG #### [facility] [address] [place] [address] Dr. Brea Causey Monocytes/100 WBC (Bld) 10.1 % Normal 1.7-12.0 [facility] Comment on above: Performed By: #### U CLINT, CMP, LIPID, DBIL, PHOS, MG #### [facility] [address] [place] [address] Dr. Brea Causey NEUT # 3.9 103/ul Normal 1.4-6.5 [facility] Comment on above: Performed By: #### U CLINT, CMP, LIPID, DBIL, PHOS, MG #### [facility] [address] [place] [address] Dr. Brea Causey Neutrophils/100 WBC (Bld) 69.5 % Normal 43.0-75.0 [facility] Comment on above: Performed By: #### U CLINT, CMP, LIPID, DBIL, PHOS, MG #### [facility] [address] [place] [address] Dr. Brea Causey Platelet mean volume (Bld) [Entitic vol] 9.2 fL Critically low 9.5-13.5 [facility] Comment on above: Performed By: #### U CLINT, CMP, LIPID, DBIL, PHOS, MG #### [facility] [address] [place] [address] Dr. Brea Causey PLT 228 103/ul Normal 150-450 [facility] Comment on above: Performed By: #### U CLINT, CMP, LIPID, DBIL, PHOS, MG #### [facility] [address] [place] [address] Dr. Brea Causey RBC 4.20 106/ul Critically low 4.70-6.10 [facility] Comment on above: Performed By: #### U CLINT, CMP, LIPID, DBIL, PHOS, MG #### [facility] [address] [place] [address] Dr. Brea Causey WBC 5.6 103/ul Normal 4.0-11.0 [facility] Comment on above: Performed By: #### U CLINT, CMP, LIPID, DBIL, PHOS, MG #### [facility] [address] [address] [address] Brea Causey LIPID PROFILEon 04-03-2022 CHOL-HDL RATIO NORM SEE BELOW Normal [facility] Comment on above: Result Comment: 3.3 - 4.4 LOW RISK 4.4 - 7.1 AVERAGE RISK 7.1 - 11.0 MODERATE RISK >11.0 HIGH RISK Performed By: #### U CLINT, CMP, LIPID, DBIL, PHOS, MG #### [facility] [address] [address] [address] Brea Causey Cholesterol [Mass/Vol] 84 mg/dL Normal <=200 [facility] Comment on above: Performed By: #### U CLINT, CMP, LIPID, DBIL, PHOS, MG #### [facility] [address] [address] [address] Brea Causey Cholesterol in HDL [Mass/Vol] 45 mg/dL Normal 40-60 [facility] Comment on above: Performed By: #### U CLINT, CMP, LIPID, DBIL, PHOS, MG #### [facility] [address] [address] [address] Brea Causey Cholesterol in LDL [Mass/Vol] 22.8 mg/dL Normal [facility] Comment on above: Performed By: #### U CLINT, CMP, LIPID, DBIL, PHOS, MG #### [facility] [address] [address] [address] Brea Causey Cholesterol.total/Cho lesterol in HDL [Mass ratio] 1.9 {ratio} Normal [facility] Comment on above: Performed By: #### U CLINT, CMP, LIPID, DBIL, PHOS, MG #### [facility] [address] [address] [address] Brea Causey HDL NORMAL > or = 60 mg/dl - LO W CARDIOVASCULAR RISK <40 mg/dl - HIGH CARDIOVASCULAR RISK Normal [facility] Comment on above: Performed By: #### U CLINT, CMP, LIPID, DBIL, PHOS, MG #### [facility] [address] [address] [address] Brea Causey LDL CALC NORMAL SEE BELOW Normal [facility] Comment on above: Result Comment: <100 mg/dl OPTIMAL 100 - 129 mg/dl NEAR OR ABOVE OPTIMAL 130 - 159 mg/dl BORDERLINE HIGH 160 - 189 mg/dl HIGH >190 mg/dl VERY HIGH Performed By: #### U CLINT, CMP, LIPID, DBIL, PHOS, MG #### [facility] [address] [address] [address] Brea Causey Triglyceride [Mass/Vol] 81 mg/dL Normal <=150 [facility] Comment on above: Performed By: #### U CLINT, CMP, LIPID, DBIL, PHOS, MG #### [facility] [address] [address] [address] Brea Causey VLDL CALC 16.2 mg/dL Normal [facility] Comment on above: Performed By: #### U CLINT, CMP, LIPID, DBIL, PHOS, MG #### [facility] [address] [address] [address] Brea Causey MAGNESIUMon 04-03-2022 Magnesium [Mass/Vol] 1.6 mg/dL Critically low 1.8-2.4 [facility] Comment on above: Performed By: #### U CLINT, CMP, LIPID, DBIL, PHOS, MG #### [facility] [address] [address] [address] Brea Causey PHOSPHORUSon 04-03-2022 Phosphate [Mass/Vol] 3.9 mg/dL Normal 2.6-4.7 [facility] Comment on above: Performed By: #### U CLINT, CMP, LIPID, DBIL, PHOS, MG #### [facility] [address] [address] [address] Brea Causey PROF 14(COMP METB)on 022 Albumin [Mass/Vol] 4.0 g/dL Normal 3.4-5.0 [facility] Comment on above: Performed By: #### U CLINT, CMP, LIPID, DBIL, PHOS, MG #### [facility] [address] [address] [address] Brea Causey Albumin/Globulin [Mass ratio] 1.2 {ratio} Normal [facility] Comment on above: Performed By: #### U CLINT, CMP, LIPID, DBIL, PHOS, MG #### [facility] [address] [place] [address] Dr. Brea Causey ALP [Catalytic activity/Vol] 196 U/L Critically high 46-116 [facility] Comment on above: Performed By: #### U CLINT, CMP, LIPID, DBIL, PHOS, MG #### [facility] [address] [place] [address] Dr. Brea Causey ALT [Catalytic activity/Vol] 19 U/L Normal 16-63 [facility] Comment on above: Performed By: #### U CLINT, CMP, LIPID, DBIL, PHOS, MG #### [facility] [address] [place] [address] Dr. Brea Causey Anion gap [Moles/Vol] 10.2 mmol/L Normal [facility] Comment on above: Performed By: #### U CLINT, CMP, LIPID, DBIL, PHOS, MG #### [facility] [address] [place] [address] Dr. Brea Causey AST [Catalytic activity/Vol] 15 U/L Normal 15-37 [facility] Comment on above: Performed By: #### U CLINT, CMP, LIPID, DBIL, PHOS, MG #### [facility] [address] [place] [address] Dr. Brea Causey Bilirubin [Mass/Vol] 0.3 mg/dL Normal 0.2-1.0 [facility] Comment on above: Performed By: #### U CLINT, CMP, LIPID, DBIL, PHOS, MG #### [facility] [address] [place] [address] Dr. Brea Causey Calcium [Mass/Vol] 8.2 mg/dL Critically low 8.5-10.1 [facility] Comment on above: Performed By: #### U CLINT, CMP, LIPID, DBIL, PHOS, MG #### [facility] [address] [place] [address] Dr. Brea Causey Chloride [Moles/Vol] 97 mmol/L Critically low 98-107 [facility] Comment on above: Performed By: #### U CLINT, CMP, LIPID, DBIL, PHOS, MG #### [facility] [address] [address] [address] Brea Causey CO2 [Moles/Vol] 28.2 mmol/L Normal 21.0-32.0 [facility] Comment on above: Performed By: #### U CLINT, CMP, LIPID, DBIL, PHOS, MG #### [facility] [address] [address] [address] Brea Causey Creatinine [Mass/Vol] 1.00 mg/dL Normal 0.70-1.30 [facility] Comment on above: Performed By: #### U CLINT, CMP, LIPID, DBIL, PHOS, MG #### [facility] [address] [place] [address] Dr. Brea Causey EGFR-AF PARAGUAYAN >60 Normal >=60 [facility] Comment on above: Performed By: #### U CLINT, CMP, LIPID, DBIL, PHOS, MG #### [facility] [address] [place] [address] Dr. Brea Causey EGFR-NON AF PARAGUAYAN >60 Normal >=60 [facility] Comment on above: Performed By: #### U CLINT, CMP, LIPID, DBIL, PHOS, MG #### [facility] [address] [address] [address] Brae Causey Globulin (S) [Mass/Vol] 3.3 g/dL Normal [facility] Comment on above: Performed By: #### U CLINT, CMP, LIPID, DBIL, PHOS, MG #### [facility] [address] [address] [address] Brea Causey Glucose [Mass/Vol] 164 mg/dL Critically high 74-106 [facility] Comment on above: Performed By: #### U CLINT, CMP, LIPID, DBIL, PHOS, MG #### [facility] Laboratory [address] [address] [address] Brea Causey Potassium [Moles/Vol] 4.4 mmol/L Normal 3.5-5.1 [facility] Comment on above: Performed By: #### U CLINT, CMP, LIPID, DBIL, PHOS, MG #### [facility] [address] [address] [address] Brea Causey Protein [Mass/Vol] 7.3 g/dL Normal 6.4-8.2 [facility] Comment on above: Performed By: #### U CLINT, CMP, LIPID, DBIL, PHOS, MG #### [facility] [address] [address] [address] Brea Causey Sodium [Moles/Vol] 131 mmol/L Critically low 136-145 Th [facility] Comment on above: Performed By: #### U CLINT, CMP, LIPID, DBIL, PHOS, MG #### [facility] [address] [place] [address] Dr. Brea Causey Urea nitrogen [Mass/Vol] 13.0 mg/dL Normal 7.0-18.0 [facility] Comment on above: Performed By: #### U CLINT, CMP, LIPID, DBIL, PHOS, MG #### [facility] [address] [address] [address] Brea Causey Urea nitrogen/Creatinine [Mass ratio] 13.0 mg/mg Normal [facility] Comment on above: Performed By: #### U CLINT, CMP, LIPID, DBIL, PHOS, MG #### [facility] [address] [place] [address] Dr. Brea Causey URIC ACID SERUMon 04-03-2022 Urate [Mass/Vol] 6.1 mg/dL Normal 3.5-7.2 [facility] Comment on above: Performed By: #### U CLINT, CMP, LIPID, DBIL, PHOS, MG #### [facility] [address] [place] [address] Dr. Brea Causey TESTOSTERONE, FREE,DIRECT, T OTALon 03-13-2022 Free Testosterone(Direct) 6.9 pg/mL Normal 6.6-18.1 [facility] Comment on above: Result Comment: Perf ormed at: BN Performed By: #### T ESTFRD #### [facility] [address] [place] [address] Dr. Brea Causey Testosterone [Mass/Vol] 428 ng/dL Normal 264-916 [facility] Comment on above: Result Comment: Adul t male reference interval is based on a population of healthy nonobese males (BMI <30) between 19 and 39 years old. Steven, et.al. JCEM 2017,102;0142-1617. PMID: [id number]. Performed at: CB Performed By: #### T ESTFRD #### [facility] [address] [place] [address] Dr. Brea Causey BK VIRUS PCR QUANTon 022 BKV DNA QUANT PCR PLASMA Negative Normal Negative [facility] Comment on above: Result Comment: No B K DNA detected. . The linear range of the assay is 22 - 100,000,000 IU/mL. Performed By: #### B KVIRUS #### [facility] [address] [place] [address] Dr. Brea Causey Log10 BKV DNA Plasma Normal [facility] Comment on above: Performed By: #### B KVIRUS #### [facility] [address] [place] [address] Dr. Brea Causey FK506 (TACROLIMUS) WHOLE BLO ODon 03-11-2022 Tacrolimus (FK506), Blood 4.7 ng/mL Normal 2.0-20.0 [facility] Comment on above: Result Comment: Trou gh (immediately following transplant) 15.0 . Trough (steady state, 2 weeks or more after transplant): 3.0 - 8.0 . Performed by LC-MS/MS technology. Performed By: #### C BC #### [facility] [address] [place] [address] Dr. Brea Causey BILIRUBIN CONJUGATED (DIRECT )on 03-08-2022 BILI, CONJUGATED 0.1 mg/dL Normal 0.0-0.2 [facility] Comment on above: Performed By: #### U CLINT, CMP, LIPID, DBIL, PHOS, MG #### [facility] [address] [place] [address] Dr. Brea Causey CBC AUTO DIFFon 03-08-2022 BASO # 0.0 103/ul Normal 0.0-0.1 [facility] Comment on above: Performed By: #### U CLINT, CMP, LIPID, DBIL, PHOS, MG #### [facility] [address] [address] [address] Brea Causey Basophils/100 WBC (Bld) 0.7 % Normal 0.2-2.0 [facility] Comment on above: Performed By: #### U CLINT, CMP, LIPID, DBIL, PHOS, MG #### [facility] [address] [place] [address] Dr. Brea Causey EO # 0.2 103/ul Normal 0.0-0.7 [facility] Comment on above: Performed By: #### U CLINT, CMP, LIPID, DBIL, PHOS, MG #### [facility] [address] [place] [address] Dr. Brea Causey Eosinophils/100 WBC (Bld) 3.1 % Normal 0.9-7.0 [facility] Comment on above: Performed By: #### U CLINT, CMP, LIPID, DBIL, PHOS, MG #### [facility] [address] [place] [address] Dr. Brea Causey Erythrocyte distribution width (RBC) [Ratio] 13.3 % Normal 11.0-15.0 [facility] Comment on above: Performed By: #### U CLINT, CMP, LIPID, DBIL, PHOS, MG #### [facility] [address] [place] [address] Dr. Brea Causey Hematocrit (Bld) [Volume fraction] 35.7 % Critically low 42.0-54.0 [facility] Comment on above: Performed By: #### U CLINT, CMP, LIPID, DBIL, PHOS, MG #### [facility] [address] [place] [address] Dr. Brea Causey Hemoglobin (Bld) [Mass/Vol] 12.0 g/dL Critically low 14.0-18.0 [facility] Comment on above: Performed By: #### U CLINT, CMP, LIPID, DBIL, PHOS, MG #### [facility] [address] [address] [address] Brea Causey IG # 0.06 10e3/ul Critically high 0.00-0.03 [facility] Comment on above: Performed By: #### U CLINT, CMP, LIPID, DBIL, PHOS, MG #### [facility] [address] [place] [address] Dr. Brea Causey IG % 1.0 % Critically high 0.0-0.5 [facility] Comment on above: Performed By: #### U CLINT, CMP, LIPID, DBIL, PHOS, MG #### [facility] [address] [place] [address] Dr. Brea Causey LYMPH # 0.8 103/ul Critically low 1.2-3.8 [facility] Comment on above: Performed By: #### U CLINT, CMP, LIPID, DBIL, PHOS, MG #### [facility] [address] [place] [address] Dr. Brea Causey Lymphocytes/100 WBC (Bld) 12.9 % Critically low 20.5-60.0 [facility] Comment on above: Performed By: #### U CLINT, CMP, LIPID, DBIL, PHOS, MG #### [facility] [address] [place] [address] Dr. Brea Causey MANUAL DIFF REQ NO Normal [facility] Comment on above: Performed By: #### U CLINT, CMP, LIPID, DBIL, PHOS, MG #### [facility] [address] [place] [address] Dr. Brea Causey MCH (RBC) [Entitic mass] 29.5 pg Normal 25.9-34.0 [facility] Comment on above: Performed By: #### U CLINT, CMP, LIPID, DBIL, PHOS, MG #### [facility] [address] [place] [address] Dr. Brea Causey MCHC (RBC) [Mass/Vol] 33.6 g/dL Normal 29.9-35.2 [facility] Comment on above: Performed By: #### U CLINT, CMP, LIPID, DBIL, PHOS, MG #### [facility] [address] [place] [address] Dr. Brea Causey MCV (RBC) [Entitic vol] 87.7 fL Normal 80.0-94.0 [facility] Comment on above: Performed By: #### U CLINT, CMP, LIPID, DBIL, PHOS, MG #### [facility] [address] [place] [address] Dr. Brea Causey MONO # 0.6 103/ul Normal 0.3-0.8 [facility] Comment on above: Performed By: #### U CLINT, CMP, LIPID, DBIL, PHOS, MG #### [facility] [address] [place] [address] Dr. Brea Causey Monocytes/100 WBC (Bld) 9.8 % Normal 1.7-12.0 [facility] Comment on above: Performed By: #### U CLINT, CMP, LIPID, DBIL, PHOS, MG #### [facility] [address] [place] [address] Dr. Brea Causey NEUT # 4.4 103/ul Normal 1.4-6.5 [facility] Comment on above: Performed By: #### U CLINT, CMP, LIPID, DBIL, PHOS, MG #### [facility] [address] [place] [address] Dr. Brea Causey Neutrophils/100 WBC (Bld) 72.5 % Normal 43.0-75.0 [facility] Comment on above: Performed By: #### U CLINT, CMP, LIPID, DBIL, PHOS, MG #### [facility] [address] [place] [address] Dr. Brea Causey Platelet mean volume (Bld) [Entitic vol] 9.6 fL Normal 9.5-13.5 [facility] Comment on above: Performed By: #### U CLINT, CMP, LIPID, DBIL, PHOS, MG #### [facility] [address] [place] [address] Dr. Brea Causey PLT 265 103/ul Normal 150-450 [facility] Comment on above: Performed By: #### U CLINT, CMP, LIPID, DBIL, PHOS, MG #### [facility] [address] [address] [address] Brea Causey RBC 4.07 106/ul Critically low 4.70-6.10 [facility] Comment on above: Performed By: #### U CLINT, CMP, LIPID, DBIL, PHOS, MG #### [facility] [address] [address] [address] Brea Causey WBC 6.0 103/ul Normal 4.0-11.0 [facility] Comment on above: Performed By: #### U CLINT, CMP, LIPID, DBIL, PHOS, MG #### [facility] [address] [address] [address] Brea Causey GLYCOHEMOGLOBIN A1Con 2021 ADA RECOMMENDATION SEE BELOW Normal [facility] Comment on above: Result Comment: ADA RECOMMENDED LIMIT 4.0 - 6.0 ADA THERAPEUTIC TARGET < 7.0 ACTION SUGGESTED > 7.0 Performed By: #### U CLINT, CMP, LIPID, DBIL, PHOS, MG #### [facility] [address] [address] [address] Brea Causey Glucose [Mass/Vol] 169 mg/dL Normal [facility] Comment on above: Performed By: #### U CLINT, CMP, LIPID, DBIL, PHOS, MG #### [facility] [address] [address] [address] Brea Causey HbA1c (Bld) [Mass fraction] 7.5 % Critically high 4.5-6.2 [facility] Comment on above: Performed By: #### U CLINT, CMP, LIPID, DBIL, PHOS, MG #### [facility] [address] [address] [address] Brea Causey LIPID PROFILEon 03-08-2022 CHOL-HDL RATIO NORM SEE BELOW Normal [facility] Comment on above: Result Comment: 3.3 - 4.4 LOW RISK 4.4 - 7.1 AVERAGE RISK 7.1 - 11.0 MODERATE RISK >11.0 HIGH RISK Performed By: #### U CLINT, CMP, LIPID, DBIL, PHOS, MG #### [facility] [address] [address] [address] Brea Causey Cholesterol [Mass/Vol] 77 mg/dL Normal <=200 [facility] Comment on above: Performed By: #### U CLINT, CMP, LIPID, DBIL, PHOS, MG #### [facility] [address] [address] [address] Brea Causey Cholesterol in HDL [Mass/Vol] 49 mg/dL Normal 40-60 [facility] Comment on above: Performed By: #### U CLINT, CMP, LIPID, DBIL, PHOS, MG #### [facility] [address] [place] [address] Dr. Brea Causey Cholesterol in LDL [Mass/Vol] 20.4 mg/dL Normal [facility] Comment on above: Performed By: #### U CLINT, CMP, LIPID, DBIL, PHOS, MG #### [facility] [address] [address] [address] Brea Causey Cholesterol.total/Cho lesterol in HDL [Mass ratio] 1.6 {ratio} Normal [facility] Comment on above: Performed By: #### U CLINT, CMP, LIPID, DBIL, PHOS, MG #### [facility] [address] [address] [address] Brea Causey HDL NORMAL > or = 60 mg/dl - LO W CARDIOVASCULAR RISK <40 mg/dl - HIGH CARDIOVASCULAR RISK Normal [facility] Comment on above: Performed By: #### U CLITN, CMP, LIPID, DBIL, PHOS, MG #### [facility] [address] [address] [address] Brea Causey LDL CALC NORMAL SEE BELOW Normal [facility] Comment on above: Result Comment: <100 mg/dl OPTIMAL 100 - 129 mg/dl NEAR OR ABOVE OPTIMAL 130 - 159 mg/dl BORDERLINE HIGH 160 - 189 mg/dl HIGH >190 mg/dl VERY HIGH Performed By: #### U CLINT, CMP, LIPID, DBIL, PHOS, MG #### [facility] [address] [address] [address] Brea Causey Triglyceride [Mass/Vol] 38 mg/dL Normal <=150 [facility] Comment on above: Performed By: #### U CLINT, CMP, LIPID, DBIL, PHOS, MG #### [facility] [address] [address] [address] Brea Causey VLDL CALC 7.6 mg/dL Normal [facility] Comment on above: Performed By: #### U CLINT, CMP, LIPID, DBIL, PHOS, MG #### [facility] [address] [address] [address] Brea Causey MAGNESIUMon 03-08-2022 Magnesium [Mass/Vol] 1.5 mg/dL Critically low 1.8-2.4 [facility] Comment on above: Performed By: #### U CLINT, CMP, LIPID, DBIL, PHOS, MG #### [facility] [address] [place] [address] Dr. Brea Causey PHOSPHORUSon 03-08-2022 Phosphate [Mass/Vol] 3.6 mg/dL Normal 2.6-4.7 [facility] Comment on above: Performed By: #### U CLINT, CMP, LIPID, DBIL, PHOS, MG #### [facility] [address] [address] [address] Brea Causey PROF 14(COMP METB)on 022 Albumin [Mass/Vol] 4.0 g/dL Normal 3.4-5.0 [facility] Comment on above: Performed By: #### U CLINT, CMP, LIPID, DBIL, PHOS, MG #### [facility] [address] [address] [address] Brea Causey Albumin/Globulin [Mass ratio] 1.2 {ratio} Normal [facility] Comment on above: Performed By: #### U CLINT, CMP, LIPID, DBIL, PHOS, MG #### [facility] [address] [address] [address] Brea Causey ALP [Catalytic activity/Vol] 176 U/L Critically high 46-116 [facility] Comment on above: Performed By: #### U CLINT, CMP, LIPID, DBIL, PHOS, MG #### [facility] [address] [place] [address] Dr. Brea Causey ALT [Catalytic activity/Vol] 21 U/L Normal 16-63 [facility] Comment on above: Performed By: #### U CLINT, CMP, LIPID, DBIL, PHOS, MG #### [facility] [address] [place] [address] Dr. Brea Causey Anion gap [Moles/Vol] 12.0 mmol/L Normal [facility] Comment on above: Performed By: #### U CLINT, CMP, LIPID, DBIL, PHOS, MG #### [facility] [address] [place] [address] Dr. Brea Causey AST [Catalytic activity/Vol] 13 U/L Critically low 15-37 [facility] Comment on above: Performed By: #### U CLINT, CMP, LIPID, DBIL, PHOS, MG #### [facility] [address] [place] [address] Dr. Brea Causey Bilirubin [Mass/Vol] 0.3 mg/dL Normal 0.2-1.0 [facility] Comment on above: Performed By: #### U CLINT, CMP, LIPID, DBIL, PHOS, MG #### [facility] [address] [place] [address] Dr. Brea Causey Calcium [Mass/Vol] 7.9 mg/dL Critically low 8.5-10.1 [facility] Comment on above: Performed By: #### U CLINT, CMP, LIPID, DBIL, PHOS, MG #### [facility] [address] [address] [address] Brea Causey Chloride [Moles/Vol] 100 mmol/L Normal 98-107 [facility] Comment on above: Performed By: #### U CLINT, CMP, LIPID, DBIL, PHOS, MG #### [facility] [address] [address] [address] Brea Causey CO2 [Moles/Vol] 27.3 mmol/L Normal 21.0-32.0 [facility] Comment on above: Performed By: #### U CLINT, CMP, LIPID, DBIL, PHOS, MG #### [facility] [address] [address] [address] Brea Causey Creatinine [Mass/Vol] 1.00 mg/dL Normal 0.70-1.30 [facility] Comment on above: Performed By: #### U CLINT, CMP, LIPID, DBIL, PHOS, MG #### [facility] [address] [place] [address] Dr. Brea Causey EGFR-AF PARAGUAYAN >60 Normal >=60 [facility] Comment on above: Performed By: #### U CLINT, CMP, LIPID, DBIL, PHOS, MG #### [facility] [address] [place] [address] Dr. Brea Causey EGFR-NON AF PARAGUAYAN >60 Normal >=60 [facility] Comment on above: Performed By: #### U CLINT, CMP, LIPID, DBIL, PHOS, MG #### [facility] [address] [place] [address] Dr. Brea Causey Globulin (S) [Mass/Vol] 3.3 g/dL Normal [facility] Comment on above: Performed By: #### U CLINT, CMP, LIPID, DBIL, PHOS, MG #### [facility] [address] [place] [address] Dr. Brea Causey Glucose [Mass/Vol] 155 mg/dL Critically high 74-106 [facility] Comment on above: Performed By: #### U CLINT, CMP, LIPID, DBIL, PHOS, MG #### [facility] [address] [place] [address] Dr. Brea Causey Potassium [Moles/Vol] 4.3 mmol/L Normal 3.5-5.1 [facility] Comment on above: Performed By: #### U CLINT, CMP, LIPID, DBIL, PHOS, MG #### [facility] [address] [address] [address] Brea Causey Protein [Mass/Vol] 7.3 g/dL Normal 6.4-8.2 [facility] Comment on above: Performed By: #### U CLINT, CMP, LIPID, DBIL, PHOS, MG #### [facility] [address] [place] [address] Dr. Brea Causey Sodium [Moles/Vol] 135 mmol/L Critically low 136-145 Th [facility] Comment on above: Performed By: #### U CLINT, CMP, LIPID, DBIL, PHOS, MG #### [facility] [address] [place] [address] Dr. Brea Causey Urea nitrogen [Mass/Vol] 13.0 mg/dL Normal 7.0-18.0 [facility] Comment on above: Performed By: #### U CLINT, CMP, LIPID, DBIL, PHOS, MG #### [facility] [address] [place] [address] Dr. Brea Causey Urea nitrogen/Creatinine [Mass ratio] 13.0 mg/mg Normal [facility] Comment on above: Performed By: #### U CLINT, CMP, LIPID, DBIL, PHOS, MG #### [facility] [address] [place] [address] Dr. Brea Causey URIC ACID SERUMon 03-08-2022 Urate [Mass/Vol] 7.3 mg/dL Critically high 3.5-7.2 [facility] Comment on above: Performed By: #### U CLINT, CMP, LIPID, DBIL, PHOS, MG #### [facility] [address] [place] [address] Dr. Brea Snyder 03-05-2022 L - -------- Specimen: [id number] Received: 03/05/22 Status: CHERI Fair Num: [id number] Spec Type: Surgical Subm Dr: Tj Wells MD Tissues: A Colon Biopsy (COLON BX) B Colon Biopsy (DIVERTICULAR COLITIS) Procedures: HE Stain/4, Gross/Micro L4/2 -------- Age/ Patient Sex Location Account Attending Physician -------- Roger Suarez 71/[facility] [id number] Tj Wells MD -------- SPEC NUM: [id number] RECD: 03/05/22 STATUS: CHERI FAIR NUM: [id number] ESTEFANI: 03/05/[address]: Tj Wells MD ENTERED: 03/05/[address] [facility] [address]: SPEC TYPE: Surgical DEPT: S ORDERED: HE Stain/4, [...] in one cassette labeled B1. -------- Specimen: [id number] Received: 03/05/22 Status: CHERI Fair Num: [id number] Spec Type: Surgical Subm Dr: Tj Wells MD Tissues: A Colon Biopsy (COLON BX) B Colon Biopsy (DIVERTICULAR COLITIS) Procedures: HE Stain/4, Gross/Micro L4/2 -------- Patient: Roger Suarez [id number] (Continued) -------- Specimen: [id number] Received: 03/05/22 (Continued) Signed (signature on file) Kalpana Shaw MD 03/07/22 1025 -------- Specimen: [id number] Received: 03/05/22 Status: CHERI Fair Num: [id number] Spec Type: Surgical Subm Dr: Tj Wells MD Tissues: A Colon Biopsy (COLON BX) B Colon Biopsy (DIVERTICULAR COLITIS) Procedures: HE Stain/4, Gross/Micro L4/2 -------- Patient: Roger Suarez [id number] (Continued) -------- Specimen: [id number] Received: 03/05/22 (Continued) Microscopic Description A. Two glass slides with H E stained material have been examined. The microscopic findings support the above pathologic diagnosis. B. Two glass slides with H E stained material have been examined. The microscopic findings support the above pathologic diagnosis. CPT Codes 30854?2 -------- -------- Specimen: [id number] Received: 03/05/22 Status: CHERI Fair Num: [id number] Spec Type: Surgical Subm Dr: Tj Wells MD Tissues: A Colon Biopsy (COLON BX) B Colon Biopsy (DIVERTICULAR COLITIS) Procedures: HE Stain/4, Gross/Micro L4/2 -------- Patient: Roger Suarez [id number] (Continued) -------- Signed (signature on file) Kalpana Shaw MD 03/07/22 1025 [facility] COVID-19 Antigenon 2 COVID-19 Antigen Healthcare Worker?: [...] developed and its performance characteristic determined by [facility] and validated at [facility]. This test has not been FDA cleared [...] for SARS Antigen by ROCHELLE PERFORMED BY: [place] [address] PATHOLOGIST HOG SLAUGHTERER FEI WOODRUFF M.D. Normal [facility] Comment on above: Performed By: #### C OVID-19 MARQUISE, SOFIANEG #### [facility] [address] COVID-19 SOFIAOrdered By: Sheila Wells on 03-01-2022 SARS-CoV+SARS-CoV-2 (COVID-19) Ag IA.rapid Ql (Resp) Negative Negative [facility] Comment on above: This is a duplicate Marquise SARS Antigen (ROCHELLE) result to be used for statistical tracking purpose only. No Panel InformationOrdered By: Tj Wells on 03-01-2022 SARS Antigen (LFIA) [facility] Marquise Ag Negativeon 03-01-20 22 Marquise Ag Negative Negative Normal Negative [facility] Comment on above: Result Comment: This is a duplicate Marquise SARS Antigen (ROCHELLE) result to be used for statistical tracking purpose only. PERFORMED BY: [place] [address] PATHOLOGIST HOG SLAUGHTERER FEI WOODRUFF M.D. Performed By: #### C OVID-19 MARQUISE, SOFIANEG #### [address] FK506 (TACROLIMUS) WHOLE BLO ODon 02-05-2022 Tacrolimus (FK506), Blood 5.4 ng/mL Normal 2.0-20.0 [facility] Comment on above: Result Comment: Trou gh (immediately following transplant) 15.0 . Trough (steady state, 2 weeks or more after transplant): 3.0 - 8.0 . Performed by LC-MS/MS technology. Performed By: #### U CLINT, CMP, LIPID, DBIL, PHOS, MG #### [facility] [address] [place] [address] Dr. Brea Causey BILIRUBIN CONJUGATED (DIRECT )on 02-01-2022 BILI, CONJUGATED 0.1 mg/dL Normal 0.0-0.2 [facility] Comment on above: Performed By: #### C BC #### [facility] [address] [place] [address] Dr. Brea Causey CBC AUTO DIFFon 02-01-2022 BASO # 0.0 103/ul Normal 0.0-0.1 [facility] Comment on above: Performed By: #### B KVIRUS #### [facility] [address] [place] [address] Dr. Brea Causey Basophils/100 WBC (Bld) 0.6 % Normal 0.2-2.0 [facility] Comment on above: Performed By: #### B KVIRUS #### [facility] [address] [place] [address] Dr. Brea Causey EO # 0.2 103/ul Normal 0.0-0.7 [facility] Comment on above: Performed By: #### B KVIRUS #### [facility] [address] [address] [address] Brea Causey Eosinophils/100 WBC (Bld) 3.5 % Normal 0.9-7.0 [facility] Comment on above: Performed By: #### B KVIRUS #### [facility] [address] [place] [address] Dr. Brea Causey Erythrocyte distribution width (RBC) [Ratio] 13.0 % Normal 11.0-15.0 [facility] Comment on above: Performed By: #### B KVIRUS #### [facility] [address] [place] [address] Dr. Brea Causey Hematocrit (Bld) [Volume fraction] 36.9 % Critically low 42.0-54.0 [facility] Comment on above: Performed By: #### B KVIRUS #### [facility] [address] [place] [address] Dr. Brea Causey Hemoglobin (Bld) [Mass/Vol] 12.0 g/dL Critically low 14.0-18.0 [facility] Comment on above: Performed By: #### B KVIRUS #### [facility] [address] [place] [address] Dr. Brea Causey IG # 0.07 10e3/ul Critically high 0.00-0.03 [facility] Comment on above: Performed By: #### B KVIRUS #### [facility] [address] [place] [address] Dr. Brea Causey IG % 1.0 % Critically high 0.0-0.5 [facility] Comment on above: Performed By: #### B KVIRUS #### [facility] Laboratory [address] [place] [address] Dr. Brea Causey LYMPH # 1.0 103/ul Critically low 1.2-3.8 [facility] Comment on above: Performed By: #### B KVIRUS #### [facility] [address] [place] [address] Dr. Brea Causey Lymphocytes/100 WBC (Bld) 14.2 % Critically low 20.5-60.0 [facility] Comment on above: Performed By: #### B KVIRUS #### [facility] [address] [place] [address] Dr. Brea Causey MANUAL DIFF REQ NO Normal [facility] Comment on above: Performed By: #### B KVIRUS #### [facility] [address] [place] [address] Dr. Brea Causey MCH (RBC) [Entitic mass] 29.1 pg Normal 25.9-34.0 [facility] Comment on above: Performed By: #### B KVIRUS #### [facility] [address] [place] [address] Dr. Brea Causey MCHC (RBC) [Mass/Vol] 32.5 g/dL Normal 29.9-35.2 [facility] Comment on above: Performed By: #### B KVIRUS #### [facility] [address] [place] [address] Dr. Brea Causey MCV (RBC) [Entitic vol] 89.6 fL Normal 80.0-94.0 [facility] Comment on above: Performed By: #### B KVIRUS #### [facility] [address] [place] [address] Dr. Brea Causey MONO # 0.7 103/ul Normal 0.3-0.8 [facility] Comment on above: Performed By: #### B KVIRUS #### [facility] [address] [place] [address] Dr. Brea Causey Monocytes/100 WBC (Bld) 9.9 % Normal 1.7-12.0 [facility] Comment on above: Performed By: #### B KVIRUS #### [facility] [address] [place] [address] Dr. Brea Causey NEUT # 4.9 103/ul Normal 1.4-6.5 [facility] Comment on above: Performed By: #### B KVIRUS #### [facility] [address] [place] [address] Dr. Brea Causey Neutrophils/100 WBC (Bld) 70.8 % Normal 43.0-75.0 [facility] Comment on above: Performed By: #### B KVIRUS #### [facility] [address] [address] [address] Brea Causey Platelet mean volume (Bld) [Entitic vol] 9.6 fL Normal 9.5-13.5 [facility] Comment on above: Performed By: #### B KVIRUS #### [facility] [address] [address] [address] Brea Causey PLT 247 103/ul Normal 150-450 [facility] Comment on above: Performed By: #### B KVIRUS #### [facility] [address] [address] [address] Brea Causey RBC 4.12 106/ul Critically low 4.70-6.10 [facility] Comment on above: Performed By: #### B KVIRUS #### [facility] [address] [place] [address] Dr. Brea Causey WBC 6.9 103/ul Normal 4.0-11.0 [facility] Comment on above: Performed By: #### B KVIRUS #### [facility] [address] [place] [address] Dr. Brea Causey LIPID PROFILEon 02-01-2022 CHOL-HDL RATIO NORM SEE BELOW Normal [facility] Comment on above: Result Comment: 3.3 - 4.4 LOW RISK 4.4 - 7.1 AVERAGE RISK 7.1 - 11.0 MODERATE RISK >11.0 HIGH RISK Performed By: #### C BC #### [facility] [address] [place] [address] Dr. Brea Causey Cholesterol [Mass/Vol] 77 mg/dL Normal <=200 [facility] Comment on above: Performed By: #### C BC #### [facility] [address] [place] [address] Dr. Brea Causey Cholesterol in HDL [Mass/Vol] 40 mg/dL Normal 40-60 [facility] Comment on above: Performed By: #### C BC #### [facility] [address] [place] [address] Dr. Brea Causey Cholesterol in LDL [Mass/Vol] 21.0 mg/dL Normal [facility] Comment on above: Performed By: #### C BC #### [facility] [address] [address] [address] Brea Causey Cholesterol.total/Cho lesterol in HDL [Mass ratio] 1.9 {ratio} Normal [facility] Comment on above: Performed By: #### C BC #### [facility] [address] [address] [address] Brea Causey HDL NORMAL > or = 60 mg/dl - LO W CARDIOVASCULAR RISK <40 mg/dl - HIGH CARDIOVASCULAR RISK Normal [facility] Comment on above: Performed By: #### C BC #### [facility] [address] [place] [address] Dr. Brea Causey LDL CALC NORMAL SEE BELOW Normal [facility] Comment on above: Result Comment: <100 mg/dl OPTIMAL 100 - 129 mg/dl NEAR OR ABOVE OPTIMAL 130 - 159 mg/dl BORDERLINE HIGH 160 - 189 mg/dl HIGH >190 mg/dl VERY HIGH Performed By: #### C BC #### [facility] [address] [place] [address] Dr. Brea Causey Triglyceride [Mass/Vol] 80 mg/dL Normal <=150 [facility] Comment on above: Performed By: #### C BC #### [facility] [address] [place] [address] Dr. Brea Causey VLDL CALC 16.0 mg/dL Normal [facility] Comment on above: Performed By: #### C BC #### [facility] [address] [place] [address] Dr. Brea Causey MAGNESIUMon 02-01-2022 Magnesium [Mass/Vol] 1.5 mg/dL Critically low 1.8-2.4 [facility] Comment on above: Performed By: #### C BC #### [facility] [address] [place] [address] Dr. Brea Causey PHOSPHORUSon 02-01-2022 Phosphate [Mass/Vol] 4.1 mg/dL Normal 2.6-4.7 [facility] Comment on above: Performed By: #### C BC #### [facility] [address] [place] [address] Dr. Brea Causey PROF 14(COMP METB)on 022 Albumin [Mass/Vol] 4.0 g/dL Normal 3.4-5.0 [facility] Comment on above: Performed By: #### C BC #### [facility] [address] [place] [address] Dr. Brea Causey Albumin/Globulin [Mass ratio] 1.3 {ratio} Normal [facility] Comment on above: Performed By: #### C BC #### [facility] [address] [place] [address] Dr. Brea Causey ALP [Catalytic activity/Vol] 162 U/L Critically high 46-116 [facility] Comment on above: Performed By: #### C BC #### [facility] [address] [place] [address] Dr. Brea Causey ALT [Catalytic activity/Vol] 25 U/L Normal 16-63 [facility] Comment on above: Performed By: #### C BC #### [facility] [address] [place] [address] Dr. Brea Causey Anion gap [Moles/Vol] 11.1 mmol/L Normal [facility] Comment on above: Performed By: #### C BC #### [facility] [address] [place] [address] Dr. Brea Causey AST [Catalytic activity/Vol] 16 U/L Normal 15-37 [facility] Comment on above: Performed By: #### C BC #### [facility] [address] [place] [address] Dr. Brea Causey Bilirubin [Mass/Vol] 0.4 mg/dL Normal 0.2-1.0 [facility] Comment on above: Performed By: #### C BC #### [facility] [address] [place] [address] Dr. Brea Causey Calcium [Mass/Vol] 8.2 mg/dL Critically low 8.5-10.1 [facility] Comment on above: Performed By: #### C BC #### [facility] [address] [place] [address] Dr. Brea Causey Chloride [Moles/Vol] 99 mmol/L Normal 98-107 [facility] Comment on above: Performed By: #### C BC #### [facility] [address] [place] [address] Dr. Brea Causey CO2 [Moles/Vol] 28.1 mmol/L Normal 21.0-32.0 [facility] Comment on above: Performed By: #### C BC #### [facility] [address] [place] [address] Dr. Brea Causey Creatinine [Mass/Vol] 1.13 mg/dL Normal 0.70-1.30 [facility] Comment on above: Performed By: #### C BC #### [facility] [address] [place] [address] Dr. Brea Causey EGFR-AF PARAGUAYAN >60 Normal >=60 [facility] Comment on above: Performed By: #### C BC #### [facility] [address] [place] [address] Dr. Brea Causey EGFR-NON AF PARAGUAYAN >60 Normal >=60 [facility] Comment on above: Performed By: #### C BC #### [facility] [address] [place] [address] Dr. Brea Causey Globulin (S) [Mass/Vol] 3.1 g/dL Normal [facility] Comment on above: Performed By: #### C BC #### [facility] [address] [place] [address] Dr. Brea Causey Glucose [Mass/Vol] 177 mg/dL Critically high 74-106 [facility] Comment on above: Performed By: #### C BC #### [facility] [address] [place] [address] Dr. Brea Causey Potassium [Moles/Vol] 5.2 mmol/L Critically high 3.5-5.1 [facility] Comment on above: Performed By: #### C BC #### [facility] [address] [place] [address] Dr. Brea Causey Protein [Mass/Vol] 7.1 g/dL Normal 6.4-8.2 [facility] Comment on above: Performed By: #### C BC #### [facility] [address] [place] [address] Dr. Brea Causey Sodium [Moles/Vol] 133 mmol/L Critically low 136-145 [facility] Comment on above: Performed By: #### C BC #### [facility] [address] [place] [address] Dr. Brea Causey Urea nitrogen [Mass/Vol] 12.0 mg/dL Normal 7.0-18.0 [facility] Comment on above: Performed By: #### C BC #### [facility] [address] [place] [address] Dr. Brea Causey Urea nitrogen/Creatinine [Mass ratio] 10.6 mg/mg Normal [facility] Comment on above: Performed By: #### C BC #### [facility] [address] [place] [address] Dr. Brea Causey URIC ACID SERUMon 02-01-2022 Urate [Mass/Vol] 7.7 mg/dL Critically high 3.5-7.2 [facility] Comment on above: Performed By: #### C BC #### [facility] [address] [place] [address] Dr. Brea Causey FK506 (TACROLIMUS) WHOLE BLO ODon 01-06-2022 Tacrolimus (FK506), Blood 11.4 ng/mL Normal 2.0-20.0 [facility] Comment on above: Result Comment: Trou gh (immediately following transplant) 15.0 . Trough (steady state, 2 weeks or more after transplant): 3.0 - 8.0 . Performed by LC-MS/MS technology. Performed By: #### B KVIRUS #### [facility] [address] [place] [address] Dr. Brea Causey BILIRUBIN CONJUGATED (DIRECT )on 01-04-2022 BILI, CONJUGATED 0.1 mg/dL Normal 0.0-0.2 [facility] Comment on above: Performed By: #### U CLINT, CMP, LIPID, DBIL, PHOS, MG #### [facility] [address] [place] [address] Dr. Brea Causey BOX TEST SENT OUTon 01-05-20 SENT TO REF LAB 01/04/2022 Normal [facility] Comment on above: Performed By: #### U CLINT, CMP, LIPID, DBIL, PHOS, MG #### [facility] [address] [place] [address] Dr. Brea Causey CBC AUTO DIFFon 01-04-2022 BASO # 0.0 103/ul Normal 0.0-0.1 [facility] Comment on above: Performed By: #### U CLINT, CMP, LIPID, DBIL, PHOS, MG #### [facility] [address] [place] [address] Dr. Brea Causey Basophils/100 WBC (Bld) 0.5 % Normal 0.2-2.0 [facility] Comment on above: Performed By: #### U CLINT, CMP, LIPID, DBIL, PHOS, MG #### [facility] [address] [place] [address] Dr. Brea Causey EO # 0.3 103/ul Normal 0.0-0.7 [facility] Comment on above: Performed By: #### U CLINT, CMP, LIPID, DBIL, PHOS, MG #### [facility] [address] [place] [address] Dr. Brea Causey Eosinophils/100 WBC (Bld) 3.9 % Normal 0.9-7.0 [facility] Comment on above: Performed By: #### U CLINT, CMP, LIPID, DBIL, PHOS, MG #### [facility] [address] [place] [address] Dr. Brea Causey Erythrocyte distribution width (RBC) [Ratio] 13.1 % Normal 11.0-15.0 [facility] Comment on above: Performed By: #### U CLINT, CMP, LIPID, DBIL, PHOS, MG #### [facility] [address] [place] [address] Dr. Brea Causey Hematocrit (Bld) [Volume fraction] 37.4 % Critically low 42.0-54.0 [facility] Comment on above: Performed By: #### U CLINT, CMP, LIPID, DBIL, PHOS, MG #### [facility] [address] [place] [address] Dr. Brea Causey Hemoglobin (Bld) [Mass/Vol] 12.0 g/dL Critically low 14.0-18.0 [facility] Comment on above: Performed By: #### U CLINT, CMP, LIPID, DBIL, PHOS, MG #### [facility] [address] [place] [address] Dr. Brea Causey IG # 0.07 10e3/ul Critically high 0.00-0.03 [facility] Comment on above: Performed By: #### U CLINT, CMP, LIPID, DBIL, PHOS, MG #### [facility] [address] [place] [address] Dr. Brea Causey IG % 1.1 % Critically high 0.0-0.5 [facility] Comment on above: Performed By: #### U CLINT, CMP, LIPID, DBIL, PHOS, MG #### [facility] [address] [place] [address] Dr. Brea Causey LYMPH # 0.8 103/ul Critically low 1.2-3.8 [facility] Comment on above: Performed By: #### U CLINT, CMP, LIPID, DBIL, PHOS, MG #### [facility] [address] [place] [address] Dr. Bera Causey Lymphocytes/100 WBC (Bld) 12.2 % Critically low 20.5-60.0 [facility] Comment on above: Performed By: #### U CLINT, CMP, LIPID, DBIL, PHOS, MG #### [facility] [address] [place] [address] Dr. Brea Causey MANUAL DIFF REQ NO Normal [facility] Comment on above: Performed By: #### U CLINT, CMP, LIPID, DBIL, PHOS, MG #### [facility] [address] [place] [address] Dr. Brea Causey MCH (RBC) [Entitic mass] 29.1 pg Normal 25.9-34.0 [facility] Comment on above: Performed By: #### U CLINT, CMP, LIPID, DBIL, PHOS, MG #### [facility] [address] [place] [address] Dr. Brea Causey MCHC (RBC) [Mass/Vol] 32.1 g/dL Normal 29.9-35.2 [facility] Comment on above: Performed By: #### U CLINT, CMP, LIPID, DBIL, PHOS, MG #### [facility] [address] [place] [address] Dr. Brea Causey MCV (RBC) [Entitic vol] 90.6 fL Normal 80.0-94.0 [facility] Comment on above: Performed By: #### U CLINT, CMP, LIPID, DBIL, PHOS, MG #### [facility] [address] [place] [address] Dr. Brea Causey MONO # 0.5 103/ul Normal 0.3-0.8 [facility] Comment on above: Performed By: #### U CLINT, CMP, LIPID, DBIL, PHOS, MG #### [facility] [address] [place] [address] Dr. Brea Causey Monocytes/100 WBC (Bld) 8.0 % Normal 1.7-12.0 [facility] Comment on above: Performed By: #### U CLINT, CMP, LIPID, DBIL, PHOS, MG #### [facility] [address] [place] [address] Dr. Brea Causey NEUT # 5.0 103/ul Normal 1.4-6.5 [facility] Comment on above: Performed By: #### U CLINT, CMP, LIPID, DBIL, PHOS, MG #### [facility] [address] [place] [address] Dr. Brea Causey Neutrophils/100 WBC (Bld) 74.3 % Normal 43.0-75.0 [facility] Comment on above: Performed By: #### U CLINT, CMP, LIPID, DBIL, PHOS, MG #### [facility] [address] [address] [address] Brea Causey Platelet mean volume (Bld) [Entitic vol] 9.5 fL Normal 9.5-13.5 [facility] Comment on above: Performed By: #### U CLINT, CMP, LIPID, DBIL, PHOS, MG #### [facility] [address] [address] [address] Brea Causey PLT 243 103/ul Normal 150-450 [facility] Comment on above: Performed By: #### U CLINT, CMP, LIPID, DBIL, PHOS, MG #### [facility] [address] [address] [address] Brea Causey RBC 4.13 106/ul Critically low 4.70-6.10 [facility] Comment on above: Performed By: #### U CLINT, CMP, LIPID, DBIL, PHOS, MG #### [facility] [address] [address] [address] Brea Causey WBC 6.7 103/ul Normal 4.0-11.0 [facility] Comment on above: Performed By: #### U CLINT, CMP, LIPID, DBIL, PHOS, MG #### [facility] [address] [address] [address] Brea Causey LIPID PROFILEon 01-04-2022 CHOL-HDL RATIO NORM SEE BELOW Normal [facility] Comment on above: Result Comment: 3.3 - 4.4 LOW RISK 4.4 - 7.1 AVERAGE RISK 7.1 - 11.0 MODERATE RISK >11.0 HIGH RISK Performed By: #### U CLINT, CMP, LIPID, DBIL, PHOS, MG #### [facility] [address] [address] [address] Brea Causey Cholesterol [Mass/Vol] 81 mg/dL Normal <=200 [facility] Comment on above: Performed By: #### U CLINT, CMP, LIPID, DBIL, PHOS, MG #### [facility] [address] [address] [address] Brea Causey Cholesterol in HDL [Mass/Vol] 43 mg/dL Normal 40-60 [facility] Comment on above: Performed By: #### U CLINT, CMP, LIPID, DBIL, PHOS, MG #### [facility] [address] [address] [address] Brea Causey Cholesterol in LDL [Mass/Vol] 26.0 mg/dL Normal [facility] Comment on above: Performed By: #### U CLINT, CMP, LIPID, DBIL, PHOS, MG #### [facility] [address] [address] [address] Brea Causey Cholesterol.total/Cho lesterol in HDL [Mass ratio] 1.9 {ratio} Normal [facility] Comment on above: Performed By: #### U CLINT, CMP, LIPID, DBIL, PHOS, MG #### [facility] [address] [address] [address] Bera Causey HDL NORMAL > or = 60 mg/dl - LO W CARDIOVASCULAR RISK <40 mg/dl - HIGH CARDIOVASCULAR RISK Normal [facility] Comment on above: Performed By: #### U CLINT, CMP, LIPID, DBIL, PHOS, MG #### [facility] [address] [address] [address] Brea Causey LDL CALC NORMAL SEE BELOW Normal [facility] Comment on above: Result Comment: <100 mg/dl OPTIMAL 100 - 129 mg/dl NEAR OR ABOVE OPTIMAL 130 - 159 mg/dl BORDERLINE HIGH 160 - 189 mg/dl HIGH >190 mg/dl VERY HIGH Performed By: #### U CLINT, CMP, LIPID, DBIL, PHOS, MG #### [facility] [address] [address] [address] Brea Causey Triglyceride [Mass/Vol] 60 mg/dL Normal <=150 [facility] Comment on above: Performed By: #### U CLINT, CMP, LIPID, DBIL, PHOS, MG #### [facility] [address] [address] [address] Brea Causey VLDL CALC 12.0 mg/dL Normal [facility] Comment on above: Performed By: #### U CLINT, CMP, LIPID, DBIL, PHOS, MG #### [facility] [address] [address] [address] Brea Causey MAGNESIUMon 01-04-2022 Magnesium [Mass/Vol] 1.4 mg/dL Critically low 1.8-2.4 [facility] Comment on above: Performed By: #### U CLINT, CMP, LIPID, DBIL, PHOS, MG #### [facility] [address] [place] [address] Dr. Brea Causey PHOSPHORUSon 01-04-2022 Phosphate [Mass/Vol] 4.4 mg/dL Normal 2.6-4.7 [facility] Comment on above: Performed By: #### U CLINT, CMP, LIPID, DBIL, PHOS, MG #### [facility] [address] [place] [address] Dr. Brea Causey PROF 14(COMP METB)on 022 Albumin [Mass/Vol] 3.9 g/dL Normal 3.4-5.0 [facility] Comment on above: Performed By: #### U CLINT, CMP, LIPID, DBIL, PHOS, MG #### [facility] [address] [place] [address] Dr. Brea Causey Albumin/Globulin [Mass ratio] 1.2 {ratio} Normal [facility] Comment on above: Performed By: #### U CLINT, CMP, LIPID, DBIL, PHOS, MG #### [facility] [address] [place] [address] Dr. Brea Causey ALP [Catalytic activity/Vol] 155 U/L Critically high 46-116 [facility] Comment on above: Performed By: #### U CLINT, CMP, LIPID, DBIL, PHOS, MG #### [facility] [address] [place] [address] Dr. Brea Causey ALT [Catalytic activity/Vol] 27 U/L Normal 16-63 [facility] Comment on above: Performed By: #### U CLINT, CMP, LIPID, DBIL, PHOS, MG #### [facility] [address] [place] [address] Dr. Brea Causey Anion gap [Moles/Vol] 14.6 mmol/L Normal [facility] Comment on above: Performed By: #### U CLINT, CMP, LIPID, DBIL, PHOS, MG #### [facility] [address] [address] [address] Brea Causey AST [Catalytic activity/Vol] 17 U/L Normal 15-37 [facility] Comment on above: Performed By: #### U CLINT, CMP, LIPID, DBIL, PHOS, MG #### [facility] [address] [address] [address] Brea Causey Bilirubin [Mass/Vol] 0.3 mg/dL Normal 0.2-1.0 [facility] Comment on above: Performed By: #### U CLINT, CMP, LIPID, DBIL, PHOS, MG #### [facility] [address] [place] [address] Dr. Brea Causey Calcium [Mass/Vol] 8.1 mg/dL Critically low 8.5-10.1 [facility] Comment on above: Performed By: #### U CLINT, CMP, LIPID, DBIL, PHOS, MG #### [facility] [address] [address] [address] Brea Causey Chloride [Moles/Vol] 99 mmol/L Normal 98-107 [facility] Comment on above: Performed By: #### U CLINT, CMP, LIPID, DBIL, PHOS, MG #### [facility] [address] [place] [address] Dr. Brea Causey CO2 [Moles/Vol] 25.0 mmol/L Normal 21.0-32.0 [facility] Comment on above: Performed By: #### U CLINT, CMP, LIPID, DBIL, PHOS, MG #### [facility] [address] [place] [address] Dr. Brea Causey Creatinine [Mass/Vol] 1.05 mg/dL Normal 0.70-1.30 [facility] Comment on above: Performed By: #### U CLINT, CMP, LIPID, DBIL, PHOS, MG #### [facility] [address] [address] [address] Brea Causey EGFR-AF PARAGUAYAN >60 Normal >=60 [facility] Comment on above: Performed By: #### U CLINT, CMP, LIPID, DBIL, PHOS, MG #### [facility] [address] [place] [address] Dr. Brea Causey EGFR-NON AF PARAGUAYAN >60 Normal >=60 [facility] Comment on above: Performed By: #### U CLINT, CMP, LIPID, DBIL, PHOS, MG #### [facility] [address] [place] [address] Dr. Brea Causey Globulin (S) [Mass/Vol] 3.2 g/dL Normal [facility] Comment on above: Performed By: #### U CLINT, CMP, LIPID, DBIL, PHOS, MG #### [facility] [address] [place] [address] Dr. Brea Causey Glucose [Mass/Vol] 177 mg/dL Critically high 74-106 [facility] Comment on above: Performed By: #### U CLINT, CMP, LIPID, DBIL, PHOS, MG #### [facility] [address] [place] [address] Dr. Brea Causey Potassium [Moles/Vol] 4.6 mmol/L Normal 3.5-5.1 [facility] Comment on above: Performed By: #### U CLINT, CMP, LIPID, DBIL, PHOS, MG #### [facility] [address] [place] [address] Dr. Brea Causey Protein [Mass/Vol] 7.1 g/dL Normal 6.4-8.2 [facility] Comment on above: Performed By: #### U CLINT, CMP, LIPID, DBIL, PHOS, MG #### [facility] [address] [address] [address] Brea Causey Sodium [Moles/Vol] 134 mmol/L Critically low 136-145 [facility] Comment on above: Performed By: #### U CLINT, CMP, LIPID, DBIL, PHOS, MG #### [facility] Laboratory [address] [address] [address] Brea Causey Urea nitrogen [Mass/Vol] 14.0 mg/dL Normal 7.0-18.0 [facility] Comment on above: Performed By: #### U CLINT, CMP, LIPID, DBIL, PHOS, MG #### [facility] [address] [place] [address] Dr. Brea Causey Urea nitrogen/Creatinine [Mass ratio] 13.3 mg/mg Normal [facility] Comment on above: Performed By: #### U CLINT, CMP, LIPID, DBIL, PHOS, MG #### [facility] [address] [place] [address] Dr. Brea Causey URIC ACID SERUMon 01-04-2022 Urate [Mass/Vol] 7.6 mg/dL Critically high 3.5-7.2 [facility] Comment on above: Performed By: #### U CLINT, CMP, LIPID, DBIL, PHOS, MG #### [facility] [address] [place] [address] Dr. Brea Causey BK VIRUS PCR QUANTon 022 BKV DNA QUANT PCR PLASMA Negative Normal Negative [facility] Comment on above: Result Comment: No B K DNA detected. . The linear range of the assay is 22 - 100,000,000 IU/mL. Performed By: #### B KVIRUS #### [facility] [address] [place] [address] Dr. Brea Causey Log10 BKV DNA Plasma Normal [facility] Comment on above: Performed By: #### B KVIRUS #### [facility] [address] [place] [address] Dr. Brea Causey FK506 (TACROLIMUS) WHOLE BLO ODon 12-03-2021 Tacrolimus (FK506), Blood 5.6 ng/mL Normal 2.0-20.0 [facility] Comment on above: Result Comment: Trou gh (immediately following transplant) 15.0 . Trough (steady state, 2 weeks or more after transplant): 3.0 - 8.0 . Performed by LC-MS/MS technology. Performed By: #### U CLINT, CMP, LIPID, DBIL, PHOS, MG #### [facility] [address] [place] [address] Dr. Brea Causey TESTOSTERONE, FREE,DIRECT, T OTALon 12-03-2021 Free Testosterone(Direct) 7.5 pg/mL Normal 6.6-18.1 [facility] Comment on above: Result Comment: Perf ormed at: BN Performed By: #### U CLINT, CMP, LIPID, DBIL, PHOS, MG #### [facility] [address] [place] [address] Dr. Brea Causey Testosterone [Mass/Vol] 467 ng/dL Normal 264-916 [facility] Comment on above: Result Comment: Adul t male reference interval is based on a population of healthy nonobese males (BMI <30) between 19 and 39 years old. Steven, et.al. JCEM 2017,102;0827-5873. PMID: [id number]. Performed at: CB Performed By: #### U CLINT, CMP, LIPID, DBIL, PHOS, MG #### [facility] [address] [place] [address] Dr. Brea Causey BILIRUBIN CONJUGATED (DIRECT )on 11-30-2021 BILI, CONJUGATED 0.2 mg/dL Normal 0.0-0.2 [facility] Comment on above: Performed By: #### B KVIRUS #### [facility] [address] [place] [address] Dr. Brea Causey CBC AUTO DIFFon 11-30-2021 BASO # 0.0 103/ul Normal 0.0-0.1 [facility] Comment on above: Performed By: #### U CLINT, CMP, LIPID, DBIL, PHOS, MG #### [facility] [address] [place] [address] Dr. Brea Causey Basophils/100 WBC (Bld) 0.6 % Normal 0.2-2.0 [facility] Comment on above: Performed By: #### U CLINT, CMP, LIPID, DBIL, PHOS, MG #### [facility] [address] [place] [address] Dr. Brea Causey EO # 0.2 103/ul Normal 0.0-0.7 [facility] Comment on above: Performed By: #### U CLINT, CMP, LIPID, DBIL, PHOS, MG #### [facility] [address] [address] [address] Brea Causey Eosinophils/100 WBC (Bld) 2.7 % Normal 0.9-7.0 [facility] Comment on above: Performed By: #### U CLINT, CMP, LIPID, DBIL, PHOS, MG #### [facility] [address] [address] [address] Brea Causey Erythrocyte distribution width (RBC) [Ratio] 13.0 % Normal 11.0-15.0 [facility] Comment on above: Performed By: #### U CLINT, CMP, LIPID, DBIL, PHOS, MG #### [facility] [address] [place] [address] Dr. Brea Causey Hematocrit (Bld) [Volume fraction] 37.6 % Critically low 42.0-54.0 [facility] Comment on above: Performed By: #### U CLINT, CMP, LIPID, DBIL, PHOS, MG #### [facility] [address] [place] [address] Dr. Brea Causey Hemoglobin (Bld) [Mass/Vol] 12.4 g/dL Critically low 14.0-18.0 [facility] Comment on above: Performed By: #### U CLINT, CMP, LIPID, DBIL, PHOS, MG #### [facility] [address] [address] [address] Brea Causey IG # 0.06 10e3/ul Critically high 0.00-0.03 The [facility] Comment on above: Performed By: #### U CLINT, CMP, LIPID, DBIL, PHOS, MG #### [facility] [address] [address] [address] Brea Causey IG % 0.9 % Critically high 0.0-0.5 [facility] Comment on above: Performed By: #### U CLINT, CMP, LIPID, DBIL, PHOS, MG #### [facility] [address] [place] [address] Dr. Brea Causey LYMPH # 1.0 103/ul Critically low 1.2-3.8 [facility] Comment on above: Performed By: #### U CLINT, CMP, LIPID, DBIL, PHOS, MG #### [facility] [address] [place] [address] Dr. Brea Causey Lymphocytes/100 WBC (Bld) 14.6 % Critically low 20.5-60.0 [facility] Comment on above: Performed By: #### U CLINT, CMP, LIPID, DBIL, PHOS, MG #### [facility] [address] [place] [address] Dr. Brea Causey MANUAL DIFF REQ NO Normal [facility] Comment on above: Performed By: #### U CLINT, CMP, LIPID, DBIL, PHOS, MG #### [facility] [address] [place] [address] Dr. Brea Causey MCH (RBC) [Entitic mass] 29.4 pg Normal 25.9-34.0 [facility] Comment on above: Performed By: #### U CLINT, CMP, LIPID, DBIL, PHOS, MG #### [facility] [address] [place] [address] Dr. Brea Causey MCHC (RBC) [Mass/Vol] 33.0 g/dL Normal 29.9-35.2 [facility] Comment on above: Performed By: #### U CLINT, CMP, LIPID, DBIL, PHOS, MG #### [facility] [address] [place] [address] Dr. Brea Causey MCV (RBC) [Entitic vol] 89.1 fL Normal 80.0-94.0 [facility] Comment on above: Performed By: #### U CLINT, CMP, LIPID, DBIL, PHOS, MG #### [facility] [address] [place] [address] Dr. Brea Causey MONO # 0.7 103/ul Normal 0.3-0.8 [facility] Comment on above: Performed By: #### U CLINT, CMP, LIPID, DBIL, PHOS, MG #### [facility] [address] [place] [address] Dr. Brea Causey Monocytes/100 WBC (Bld) 10.0 % Normal 1.7-12.0 [facility] Comment on above: Performed By: #### U CLINT, CMP, LIPID, DBIL, PHOS, MG #### [facility] [address] [place] [address] Dr. Brea Causey NEUT # 4.8 103/ul Normal 1.4-6.5 [facility] Comment on above: Performed By: #### U CLINT, CMP, LIPID, DBIL, PHOS, MG #### [facility] [address] [place] [address] Dr. Brea Causey Neutrophils/100 WBC (Bld) 71.2 % Normal 43.0-75.0 [facility] Comment on above: Performed By: #### U CLINT, CMP, LIPID, DBIL, PHOS, MG #### [facility] [address] [place] [address] Dr. Brea Causey Platelet mean volume (Bld) [Entitic vol] 9.0 fL Critically low 9.5-13.5 [facility] Comment on above: Performed By: #### U CLINT, CMP, LIPID, DBIL, PHOS, MG #### [facility] [address] [place] [address] Dr. Brea Causey PLT 280 103/ul Normal 150-450 [facility] Comment on above: Performed By: #### U CLINT, CMP, LIPID, DBIL, PHOS, MG #### [facility] [address] [place] [address] Dr. Brea Causye RBC 4.22 106/ul Critically low 4.70-6.10 [facility] Comment on above: Performed By: #### U CLINT, CMP, LIPID, DBIL, PHOS, MG #### [facility] [address] [place] [address] Dr. Brea Causey WBC 6.7 103/ul Normal 4.0-11.0 [facility] Comment on above: Performed By: #### U CLINT, CMP, LIPID, DBIL, PHOS, MG #### [facility] [address] [place] [address] Dr. Brea Causey GLYCOHEMOGLOBIN A1Con 2021 ADA RECOMMENDATION SEE BELOW Normal [facility] Comment on above: Result Comment: ADA RECOMMENDED LIMIT 4.0 - 6.0 ADA THERAPEUTIC TARGET < 7.0 ACTION SUGGESTED > 7.0 Performed By: #### B KVIRUS #### [facility] [address] [address] [address] Brea Causey Glucose [Mass/Vol] 171 mg/dL Normal [facility] Comment on above: Performed By: #### B KVIRUS #### [facility] [address] [address] [address] Brea Causey HbA1c (Bld) [Mass fraction] 7.6 % Critically high 4.5-6.2 [facility] Comment on above: Performed By: #### B KVIRUS #### [facility] [address] [place] [address] Dr. Brea Causey LIPID PROFILEon 11-30-2021 CHOL-HDL RATIO NORM SEE BELOW Normal [facility] Comment on above: Result Comment: 3.3 - 4.4 LOW RISK 4.4 - 7.1 AVERAGE RISK 7.1 - 11.0 MODERATE RISK >11.0 HIGH RISK Performed By: #### C BC #### [facility] [address] [place] [address] Dr. rBea Causey Cholesterol [Mass/Vol] 75 mg/dL Normal <=200 [facility] Comment on above: Performed By: #### C BC #### [facility] [address] [address] [address] Brea Causey Cholesterol in HDL [Mass/Vol] 41 mg/dL Normal 40-60 [facility] Comment on above: Performed By: #### C BC #### [facility] [address] [address] [address] Brea Causey Cholesterol in LDL [Mass/Vol] 18.6 mg/dL Normal [facility] Comment on above: Performed By: #### C BC #### [facility] [address] [place] [address] Dr. Brea Causey Cholesterol.total/Cho lesterol in HDL [Mass ratio] 1.8 {ratio} Normal [facility] Comment on above: Performed By: #### C BC #### [facility] [address] [address] [address] Brea Causey HDL NORMAL > or = 60 mg/dl - LO W CARDIOVASCULAR RISK <40 mg/dl - HIGH CARDIOVASCULAR RISK Normal [facility] Comment on above: Performed By: #### C BC #### [facility] [address] [place] [address] Dr. Brea Causey LDL CALC NORMAL SEE BELOW Normal [facility] Comment on above: Result Comment: <100 mg/dl OPTIMAL 100 - 129 mg/dl NEAR OR ABOVE OPTIMAL 130 - 159 mg/dl BORDERLINE HIGH 160 - 189 mg/dl HIGH >190 mg/dl VERY HIGH Performed By: #### C BC #### [facility] [address] [place] [address] Dr. Brea Causey Triglyceride [Mass/Vol] 77 mg/dL Normal <=150 [facility] Comment on above: Performed By: #### C BC #### [facility] [address] [place] [address] Dr. Brea Causey VLDL CALC 15.4 mg/dL Normal [facility] Comment on above: Performed By: #### C BC #### [facility] [address] [place] [address] Dr. Brea Causey MAGNESIUMon 11-30-2021 Magnesium [Mass/Vol] 1.4 mg/dL Critically low 1.8-2.4 [facility] Comment on above: Performed By: #### B KVIRUS #### [facility] [address] [place] [address] Dr. Brea Causey PHOSPHORUSon 11-30-2021 Phosphate [Mass/Vol] 4.1 mg/dL Normal 2.6-4.7 [facility] Comment on above: Performed By: #### C BC #### [facility] [address] [place] [address] Dr. Brea Causey PROF 14(COMP METB)on Albumin [Mass/Vol] 4.2 g/dL Normal 3.4-5.0 [facility] Comment on above: Performed By: #### C BC #### [facility] [address] [address] [address] Brea Causey Albumin/Globulin [Mass ratio] 1.3 {ratio} Normal [facility] Comment on above: Performed By: #### C BC #### [facility] [address] [place] [address] Dr. Brea Causey ALP [Catalytic activity/Vol] 148 U/L Critically high 46-116 [facility] Comment on above: Performed By: #### C BC #### [facility] [address] [place] [address] Dr. Brea Causey ALT [Catalytic activity/Vol] 36 U/L Normal 16-63 [facility] Comment on above: Performed By: #### C BC #### [facility] [address] [place] [address] Dr. Bera Causey Anion gap [Moles/Vol] 14.7 mmol/L Normal [facility] Comment on above: Performed By: #### C BC #### [facility] [address] [place] [address] Dr. Brea Causey AST [Catalytic activity/Vol] 21 U/L Normal 15-37 [facility] Comment on above: Performed By: #### C BC #### [facility] [address] [place] [address] Dr. Brea Causey Bilirubin [Mass/Vol] 0.4 mg/dL Normal 0.2-1.0 [facility] Comment on above: Performed By: #### C BC #### [facility] [address] [place] [address] Dr. Brea Causey Calcium [Mass/Vol] 8.3 mg/dL Critically low 8.5-10.1 [facility] Comment on above: Performed By: #### C BC #### [facility] [address] [place] [address] Dr. Brea Causey Chloride [Moles/Vol] 98 mmol/L Normal 98-107 [facility] Comment on above: Performed By: #### C BC #### [facility] [address] [place] [address] Dr. Brea Causey CO2 [Moles/Vol] 27.2 mmol/L Normal 21.0-32.0 [facility] Comment on above: Performed By: #### C BC #### [facility] [address] [place] [address] Dr. Brea Causey Creatinine [Mass/Vol] 1.10 mg/dL Normal 0.70-1.30 [facility] Comment on above: Performed By: #### C BC #### [facility] [address] [place] [address] Dr. Brea Causey EGFR-AF PARAGUAYAN >60 Normal >=60 [facility] Comment on above: Performed By: #### C BC #### [facility] [address] [place] [address] Dr. Brea Causey EGFR-NON AF PARAGUAYAN >60 Normal >=60 [facility] Comment on above: Performed By: #### C BC #### [facility] [address] [place] [address] Dr. Brea Causey Globulin (S) [Mass/Vol] 3.2 g/dL Normal [facility] Comment on above: Performed By: #### C BC #### [facility] [address] [place] [address] Dr. Brea Causey Glucose [Mass/Vol] 173 mg/dL Critically high 74-106 [facility] Comment on above: Performed By: #### C BC #### [facility] [address] [place] [address] Dr. Brea Causey Potassium [Moles/Vol] 4.9 mmol/L Normal 3.5-5.1 [facility] Comment on above: Performed By: #### C BC #### [facility] [address] [place] [address] Dr. Brea Causey Protein [Mass/Vol] 7.4 g/dL Normal 6.4-8.2 [facility] Comment on above: Performed By: #### C BC #### [facility] [address] [place] [address] Dr. Brea Causey Sodium [Moles/Vol] 135 mmol/L Critically low 136-145 [facility] Comment on above: Performed By: #### C BC #### [facility] [address] [place] [address] Dr. Brea Causey Urea nitrogen [Mass/Vol] 14.0 mg/dL Normal 7.0-18.0 [facility] Comment on above: Performed By: #### C BC #### [facility] [address] [place] [address] Dr. Brea Causey Urea nitrogen/Creatinine [Mass ratio] 12.7 mg/mg Normal [facility] Comment on above: Performed By: #### C BC #### [facility] [address] [place] [address] Dr. Brea Causey URIC ACID SERUMon 11-30-2021 Urate [Mass/Vol] 7.8 mg/dL Critically high 3.5-7.2 [facility] Comment on above: Performed By: #### C BC #### [facility] [address] [place] [address] Dr. Brea Causey BNPon 11-14-2021 Natriuretic peptide B (Bld) [Mass/Vol] 350.0 pg/mL Normal <=900.0 [facility] Comment on above: Performed By: #### C BC #### [facility] [address] [place] [address] Dr. Brea Causey CBC AUTO DIFFon 11-14-2021 BASO # 0.0 103/ul Normal 0.0-0.1 [facility] Comment on above: Performed By: #### C BC #### [facility] [address] [place] [address] Dr. Brea Causye Basophils/100 WBC (Bld) 0.1 % Critically low 0.2-2.0 [facility] Comment on above: Performed By: #### C BC #### [facility] [address] [place] [address] Dr. Brea Causey EO # 0.2 103/ul Normal 0.0-0.7 [facility] Comment on above: Performed By: #### C BC #### [facility] [address] [address] [address] Brea Causey Eosinophils/100 WBC (Bld) 1.4 % Normal 0.9-7.0 [facility] Comment on above: Performed By: #### C BC #### [facility] [address] [place] [address] Dr. Brea Causey Erythrocyte distribution width (RBC) [Ratio] 13.1 % Normal 11.0-15.0 [facility] Comment on above: Performed By: #### C BC #### [facility] [address] [place] [address] Dr. Brea Causey Hematocrit (Bld) [Volume fraction] 39.4 % Critically low 42.0-54.0 [facility] Comment on above: Performed By: #### C BC #### [facility] [address] [place] [address] Dr. Brea Causey Hemoglobin (Bld) [Mass/Vol] 13.2 g/dL Critically low 14.0-18.0 [facility] Comment on above: Performed By: #### C BC #### [facility] [address] [place] [address] Dr. Brea Causey IG # 0.11 10e3/ul Critically high 0.00-0.03 [facility] Comment on above: Performed By: #### C BC #### [facility] [address] [place] [address] Dr. Brea Causey IG % 0.6 % Critically high 0.0-0.5 [facility] Comment on above: Performed By: #### C BC #### [facility] [address] [place] [address] Dr. Brea Causey LYMPH # 1.1 103/ul Critically low 1.2-3.8 [facility] Comment on above: Performed By: #### C BC #### [facility] [address] [place] [address] Dr. Brea Causey Lymphocytes/100 WBC (Bld) 6.7 % Critically low 20.5-60.0 [facility] Comment on above: Performed By: #### C BC #### [facility] [address] [address] [address] Brea Causey MANUAL DIFF REQ NO Normal [facility] Comment on above: Performed By: #### C BC #### [facility] [address] [place] [address] Dr. Brea Causey MCH (RBC) [Entitic mass] 29.5 pg Normal 25.9-34.0 [facility] Comment on above: Performed By: #### C BC #### [facility] [address] [place] [address] Dr. Brea Causey MCHC (RBC) [Mass/Vol] 33.5 g/dL Normal 29.9-35.2 [facility] Comment on above: Performed By: #### C BC #### [facility] [address] [place] [address] Dr. Brea Causey MCV (RBC) [Entitic vol] 88.1 fL Normal 80.0-94.0 [facility] Comment on above: Performed By: #### C BC #### [facility] [address] [place] [address] Dr. Brea Causey MONO # 1.5 103/ul Critically high 0.3-0.8 [facility] Comment on above: Performed By: #### C BC #### [facility] [address] [place] [address] Dr. Brea Causey Monocytes/100 WBC (Bld) 8.6 % Normal 1.7-12.0 [facility] Comment on above: Performed By: #### C BC #### [facility] [address] [place] [address] Dr. Brea Causey NEUT # 14.0 103/ul Critically high 1.4-6.5 [facility] Comment on above: Performed By: #### C BC #### [facility] [address] [place] [address] Dr. Brea Causey Neutrophils/100 WBC (Bld) 82.6 % Critically high 43.0-75.0 [facility] Comment on above: Performed By: #### C BC #### [facility] [address] [address] [address] Brea Causey Platelet mean volume (Bld) [Entitic vol] 9.5 fL Normal 9.5-13.5 [facility] Comment on above: Performed By: #### C BC #### [facility] [address] [address] [address] Brea Causey PLT 303 103/ul Normal 150-450 [facility] Comment on above: Performed By: #### C BC #### [facility] [address] [address] [address] Brea Causey RBC 4.47 106/ul Critically low 4.70-6.10 [facility] Comment on above: Performed By: #### C BC #### [facility] [address] [address] [address] Brea Causey WBC 17.0 103/ul Critically high 4.0-11.0 [facility] Comment on above: Performed By: #### C BC #### [facility] [address] [address] [address] Brea Causey [facility]on SARS-CoV-2 (COVID-19) RNA ISI+probe Ql (Unsp spec) Not detected Normal NOT DETECTED [facility] Comment on above: Result Comment: When [...] for this test is supported by the [place] of Health and Human Service's declaration that [...] CLINT, CMP, LIPID, DBIL, PHOS, MG #### [facility] [address] [address] [address] Brea Causey ER URINE PROFILEon 2 Bilirubin Ql (U) Negative Normal NEGATIVE [facility] Comment on above: Performed By: #### U CLINT, CMP, LIPID, DBIL, PHOS, MG #### [facility] [address] [place] [address] Dr. Brea Causey Clarity (U) CLEAR Normal CLEAR [facility] Comment on above: Performed By: #### U CLINT, CMP, LIPID, DBIL, PHOS, MG #### [facility] [address] [place] [address] Dr. Brea Causey Color (U) YELLOW Normal YELLOW [facility] Comment on above: Performed By: #### U CLINT, CMP, LIPID, DBIL, PHOS, MG #### [facility] [address] [place] [address] Dr. Brea RAZAAHTatum A micrscopic examination will be performed if indicated. Normal [facility] Comment on above: Performed By: #### U CLINT, CMP, LIPID, DBIL, PHOS, MG #### [facility] [address] [place] [address] Dr. Brea Causey Glucose Ql (U) Negative Normal NEGATIVE [facility] Comment on above: Performed By: #### U CLINT, CMP, LIPID, DBIL, PHOS, MG #### [facility] [address] [place] [address] Dr. Brea Causey Hemoglobin Ql (U) Negative Normal NEGATIVE [facility] Comment on above: Performed By: #### U CLINT, CMP, LIPID, DBIL, PHOS, MG #### [facility] [address] [place] [address] Dr. Brea Causey Ketones Ql (U) Negative Normal NEGATIVE [facility] Comment on above: Performed By: #### U CLINT, CMP, LIPID, DBIL, PHOS, MG #### [facility] [address] [place] [address] Dr. Yilan Causey LEUKOCYTES Negative Normal NEGATIVE [facility] Comment on above: Performed By: #### U CLINT, CMP, LIPID, DBIL, PHOS, MG #### [facility] [address] [address] [address] Brea Causey Nitrite Ql (U) Negative Normal NEGATIVE [facility] Comment on above: Performed By: #### U CLINT, CMP, LIPID, DBIL, PHOS, MG #### [facility] [address] [address] [address] Brea Causey pH (U) 6.0 [pH] Normal 5-9 [facility] Comment on above: Performed By: #### U CLINT, CMP, LIPID, DBIL, PHOS, MG #### [facility] [address] [place] [address] Dr. Brea Causey SPEC GRAVITY <=1.005 Abnormal 1.005-<=1.025 [facility] Comment on above: Performed By: #### U CLINT, CMP, LIPID, DBIL, PHOS, MG #### [facility] [address] [address] [address] Brea Causey UA PROTEIN Negative Normal NEGATIVE/ TRACE [facility] Comment on above: Performed By: #### U CLINT, CMP, LIPID, DBIL, PHOS, MG #### [facility] [address] [address] [address] Brea Causey UR MICRO IND NOT INDICATED Normal [facility] Comment on above: Performed By: #### U CLINT, CMP, LIPID, DBIL, PHOS, MG #### [facility] [address] [place] [address] Dr. Brea Causey Urobilinogen Qn (U) 0.2 {Sabine'U}/dL Normal 0.2 - 1. 0 [facility] Comment on above: Performed By: #### U CLINT, CMP, LIPID, DBIL, PHOS, MG #### [facility] [address] [place] [address] Dr. Brea Causey GI PANEL (PCR)on 11-14-2021 Adenovirus F 40/41 Not detected Normal NOT DETECTED [facility] Comment on above: Performed By: #### U CLINT, CMP, LIPID, DBIL, PHOS, MG #### [facility] [address] [place] [address] Dr. Brea Causey Astrovirus Not detected Normal NOT DETECTED The [facility] Comment on above: Performed By: #### U CLINT, CMP, LIPID, DBIL, PHOS, MG #### [facility] [address] [place] [address] Dr. Brea Causey C. Diff toxin A/B Not detected Normal NOT DETECTED [facility] Comment on above: Performed By: #### U CLINT, CMP, LIPID, DBIL, PHOS, MG #### [facility] [address] [place] [address] Dr. Brea Causey Campylobacter Not detected Normal NOT DETECTED The [facility] Comment on above: Performed By: #### U CLINT, CMP, LIPID, DBIL, PHOS, MG #### [facility] [address] [place] [address] Dr. Brea Causey Cryptosporidium Not detected Normal NOT DETECTED The [facility] Comment on above: Performed By: #### U CLINT, CMP, LIPID, DBIL, PHOS, MG #### [facility] [address] [place] [address] Dr. Brea Causey Cyclos. Cayetanensis Not detected Normal NOT DETECTED [facility] Comment on above: Performed By: #### U CLINT, CMP, LIPID, DBIL, PHOS, MG #### [facility] [address] [place] [address] Dr. Brea Causey E. Coli O157 Not Applicable Normal Not Applicable [facility] Comment on above: Performed By: #### U CLINT, CMP, LIPID, DBIL, PHOS, MG #### [facility] [address] [place] [address] Dr. Brea Causey E. histolytica Not detected Normal NOT DETECTED The [facility] Comment on above: Performed By: #### U CLINT, CMP, LIPID, DBIL, PHOS, MG #### [facility] [address] [place] [address] Dr. Brea Causey EAEC Not detected Normal NOT DETECTED The [facility] Comment on above: Performed By: #### U CLINT, CMP, LIPID, DBIL, PHOS, MG #### [facility] [address] [place] [address] Dr. Brea Causey EIEC Not detected Normal NOT DETECTED The [facility] Comment on above: Performed By: #### U CLINT, CMP, LIPID, DBIL, PHOS, MG #### [facility] [address] [place] [address] Dr. Brea Causey EPEC Not detected Normal NOT DETECTED The [facility] Comment on above: Performed By: #### U CLINT, CMP, LIPID, DBIL, PHOS, MG #### [facility] [address] [place] [address] Dr. Brea Causey ETEC Not detected Normal NOT DETECTED The [facility] Comment on above: Performed By: #### U CLINT, CMP, LIPID, DBIL, PHOS, MG #### [facility] [address] [place] [address] Dr. Brea Causey G. Lamblia Not detected Normal NOT DETECTED [facility] Comment on above: Performed By: #### U CLINT, CMP, LIPID, DBIL, PHOS, MG #### [facility] [address] [place] [address] Dr. Brea HUTTONANEL CONTROLS PASSED Normal The [facility] Comment on above: Performed By: #### U CLINT, CMP, LIPID, DBIL, PHOS, MG #### [facility] [address] [place] [address] Dr. Brea DARDEN DAVID HEADER GI PANEL BACTERIA Normal [facility] Comment on above: Performed By: #### U CLINT, CMP, LIPID, DBIL, PHOS, MG #### [facility] [address] [place] [address] Dr. Brea DARDENHD ECOLI GI PANEL DIARRHEAGENIC E.COLI / SHIGELLA Normal [facility] Comment on above: Performed By: #### U CLINT, CMP, LIPID, DBIL, PHOS, MG #### [facility] [address] [address] [address] Brea Causey [facility] INFO SEE BELOW Normal [facility] Comment on above: Result Comment: EAEC - Enteroaggregative E. Coli EPEC- Enteropathogenic E. Coli ETEC- Enterotoxigenic E. Coli lt/st STEC- Shigella-like toxin-producing E. Coli stx1/stx2 EIEC- Shigella/Enteroinvasive E. Coli Performed By: #### U CLINT, CMP, LIPID, DBIL, PHOS, MG #### [facility] [address] [address] [address] Brea PINTO PARASITES GI PANEL PARASITES Normal [facility] Comment on above: Performed By: #### U CLINT, CMP, LIPID, DBIL, PHOS, MG #### [facility] [address] [address] [address] Brea PINTO VIRUS GI PANEL VIRUSES Normal The [facility] Comment on above: Performed By: #### U CLINT, CMP, LIPID, DBIL, PHOS, MG #### [facility] [address] [address] [address] Brea Causey Norovirus GI/GII Not detected Normal NOT DETECTED [facility] Comment on above: Performed By: #### U CLINT, CMP, LIPID, DBIL, PHOS, MG #### [facility] [address] [address] [address] Brea Causey P. Shigelloides Not detected Normal NOT DETECTED [facility] Comment on above: Performed By: #### U CLINT, CMP, LIPID, DBIL, PHOS, MG #### [facility] [address] [address] [address] Brea Causey Rotavirus A Not detected Normal NOT DETECTED [facility] Comment on above: Performed By: #### U CLINT, CMP, LIPID, DBIL, PHOS, MG #### [facility] [address] [address] [address] Brea Causey Salmonella Not detected Normal NOT DETECTED The [facility] Comment on above: Performed By: #### U CLINT, CMP, LIPID, DBIL, PHOS, MG #### [facility] [address] [address] [address] Brea Causey Sapovirus Not detected Normal NOT DETECTED [facility] Comment on above: Performed By: #### U CLINT, CMP, LIPID, DBIL, PHOS, MG #### [facility] [address] [address] [address] Brea Causey STEC Not detected Normal NOT DETECTED [facility] Comment on above: Performed By: #### U CLINT, CMP, LIPID, DBIL, PHOS, MG #### [facility] [address] [address] [address] Brea Causey Vibrio Not detected Normal NOT DETECTED [facility] Comment on above: Performed By: #### U CLINT, CMP, LIPID, DBIL, PHOS, MG #### [facility] [address] [address] [address] Brea Causey Vibrio Cholera Not detected Normal NOT DETECTED The [facility] Comment on above: Performed By: #### U CLINT, CMP, LIPID, DBIL, PHOS, MG #### [facility] [address] [place] [address] Dr. Brea Causey Y. Enterocolitica Not detected Normal NOT DETECTED [facility] Comment on above: Performed By: #### U CLINT, CMP, LIPID, DBIL, PHOS, MG #### [facility] [address] [address] [address] Brea Causey PROF 14(COMP METB)on 022 Albumin [Mass/Vol] 4.0 g/dL Normal 3.4-5.0 [facility] Comment on above: Performed By: #### C BC #### [facility] [address] [address] [address] Brea Causey Albumin/Globulin [Mass ratio] 1.3 {ratio} Normal [facility] Comment on above: Performed By: #### C BC #### [facility] [address] [place] [address] Dr. Brea Causey ALP [Catalytic activity/Vol] 142 U/L Critically high 46-116 [facility] Comment on above: Performed By: #### C BC #### [facility] [address] [address] [address] Brea Causey ALT [Catalytic activity/Vol] 39 U/L Normal 16-63 [facility] Comment on above: Performed By: #### C BC #### [facility] [address] [address] [address] Brea Causey Anion gap [Moles/Vol] 13.6 mmol/L Normal [facility] Comment on above: Performed By: #### C BC #### [facility] [address] [address] [address] Brea Causey AST [Catalytic activity/Vol] 23 U/L Normal 15-37 [facility] Comment on above: Performed By: #### C BC #### [facility] [address] [place] [address] Dr. Brea Causey Bilirubin [Mass/Vol] 0.4 mg/dL Normal 0.2-1.0 [facility] Comment on above: Performed By: #### C BC #### [facility] [address] [place] [address] Dr. Brea Causey Calcium [Mass/Vol] 8.4 mg/dL Critically low 8.5-10.1 [facility] Comment on above: Performed By: #### C BC #### [facility] [address] [place] [address] Dr. Brea Causey Chloride [Moles/Vol] 97 mmol/L Critically low 98-107 [facility] Comment on above: Performed By: #### C BC #### [facility] [address] [place] [address] Dr. Brea Causey CO2 [Moles/Vol] 26.1 mmol/L Normal 21.0-32.0 [facility] Comment on above: Performed By: #### C BC #### [facility] [address] [place] [address] Dr. Brea Causey Creatinine [Mass/Vol] 1.21 mg/dL Normal 0.70-1.30 [facility] Comment on above: Performed By: #### C BC #### [facility] [address] [address] [address] Brea Causey EGFR-AF PARAGUAYAN >60 Normal >=60 [facility] Comment on above: Performed By: #### C BC #### [facility] [address] [address] [address] Brea Causey EGFR-NON AF PARAGUAYAN 59 mL/min/1.73m2 Critically low >=60 [facility] Comment on above: Performed By: #### C BC #### [facility] [address] [address] [address] Brea Causey Globulin (S) [Mass/Vol] 3.2 g/dL Normal [facility] Comment on above: Performed By: #### C BC #### [facility] [address] [address] [address] Brea Causey Glucose [Mass/Vol] 227 mg/dL Critically high 74-106 [facility] Comment on above: Performed By: #### C BC #### [facility] [address] [address] [address] Brea Causey Potassium [Moles/Vol] 4.7 mmol/L Normal 3.5-5.1 [facility] Comment on above: Performed By: #### C BC #### [facility] [address] [place] [address] Dr. Brea Causey Protein [Mass/Vol] 7.2 g/dL Normal 6.4-8.2 [facility] Comment on above: Performed By: #### C BC #### [facility] [address] [address] [address] Brea Causey Sodium [Moles/Vol] 132 mmol/L Critically low 136-145 Th [facility] Comment on above: Performed By: #### C BC #### [facility] [address] [address] [address] Brea Causey Urea nitrogen [Mass/Vol] 12.0 mg/dL Normal 7.0-18.0 [facility] Comment on above: Performed By: #### C BC #### [facility] [address] [address] [address] Brea Causey Urea nitrogen/Creatinine [Mass ratio] 9.9 mg/mg Normal [facility] Comment on above: Performed By: #### C #### [facility] [address] [address] [address] Brea Causey CBC W/DIFFon 10-31-2021 ABS IMM GRANS 0.1 10*3/uL Normal 0.0-0.2 [facility] Comment on above: Performed By: #### 4 5506, 97452, 65856, 98032, 49678, 91732 #### [facility] [address] [facility] [address] ABS NEUTROPHILS 5.9 10*3/uL Normal 1.6-7.6 [facility] Comment on above: Performed By: #### 4 5506, 73092, 96543, 52598, 52621, 39186 #### [facility] [address] [facility] [address] Basophils (Bld) [#/Vol] 0.0 10*3/uL Normal 0.0-0.2 [facility] Comment on above: Performed By: #### 4 5506, 66550, 29195, 40094, 95688, 23288 #### [facility] [address] [facility] [address], [facility] Basophils/100 WBC (Bld) 0.3 % Normal 0.0-1.0 [facility] Comment on above: Performed By: #### 4 5506, 30488, 59585, 67369, 12710, 69081 #### [facility] [address] [place] [address], [facility] Eosinophils (Bld) [#/Vol] 0.2 10*3/uL Normal 0.0-0.5 [facility] Comment on above: Performed By: #### 4 5506, 26335, 18885, 99847, 19393, 88138 #### [facility] [address] Eosinophils/100 WBC (Bld) 2.3 % Normal 0.0-6.0 [facility] Comment on above: Performed By: #### 4 5506, 60081, 73481, 28264, 50150, 12848 #### [facility] [address] [facility]. [address] Erythrocyte distribution width (RBC) [Ratio] 13.4 % Normal 11.5-15.0 [facility] Comment on above: Performed By: #### 4 5506, 28496, 10899, 15748, 55494, 02722 #### [facility] [address] Hematocrit (Bld) [Volume fraction] 36.1 % Low 39.0-50.0 [facility] Comment on above: Performed By: #### 4 5506, 18844, 24369, 15375, 03225, 81320 #### [facility] [address] Hemoglobin (Bld) [Mass/Vol] 11.9 g/dL Low 13.0-17.0 [facility] Comment on above: Performed By: #### 4 5506, 61369, 03251, 75704, 02408, 62570 #### [facility] [address] [facility]. [address] IMMATURE GRANS 0.7 % Normal 0.0-1.0 [facility] Comment on above: Performed By: #### 4 5506, 39024, 72949, 17686, 99347, 24104 #### [facility] [address] [place] [address], [facility] Lymphocytes (Bld) [#/Vol] 0.9 10*3/uL Low 1.2-4.0 [facility] Comment on above: Performed By: #### 4 5506, 28914, 19550, 85801, 27579, 76142 #### [facility] [address] [facility] [place] [address], [facility] Lymphocytes/100 WBC (Bld) 12.1 % Low 20.0-45.0 [facility] Comment on above: Performed By: #### 4 5506, 44530, 84456, 88847, 65196, 78557 #### [facility] [address] [facility] [place] [address], [facility] MCH (RBC) [Entitic mass] 29.3 pg Normal 27.0-33.0 [facility] Comment on above: Performed By: #### 4 5506, 95306, 89889, 48856, 04855, 68513 #### [facility] [address] [facility] [address], [facility] MCHC (RBC) [Mass/Vol] 33.0 g/dL Normal 32.0-35.0 [facility] Comment on above: Performed By: #### 4 5506, 14780, 64930, 57155, 00113, 55325 #### [facility] [address] [facility] [address], [facility] MCV (RBC) [Entitic vol] 88.9 fL Normal 82.0-98.0 [facility] Comment on above: Performed By: #### 4 5506, 48072, 15157, 10592, 75043, 77861 #### [facility] [address] [facility] [place] [address], [facility] Monocytes (Bld) [#/Vol] 0.6 10*3/uL Normal 0.1-1.0 [facility] Comment on above: Performed By: #### 4 5506, 34453, 36603, 91395, 03060, 36338 #### [facility] [address] [place] [address], [facility] MONOS 8.3 % Normal 5.0-12.0 [facility] Comment on above: Performed By: #### 4 5506, 76997, 86808, 14170, 73847, 69263 #### [facility] [address] [place] [address], [facility] Neutrophils/100 WBC (Bld) 76.3 % High 40.0-72.0 [facility] Comment on above: Performed By: #### 4 5506, 61418, 95189, 87913, 65356, 39846 #### [facility] [address] [place] [address], [facility] Nucleated RBC/100 WBC (Bld) [Ratio] 0 % Normal 0-0 [facility] Comment on above: Performed By: #### 4 5506, 93165, 93230, 88369, 04511, 00586 #### [facility] [address] [place] [address], [facility] PLAT CNT 260 10*3/uL Normal 150-400 [facility] Comment on above: Performed By: #### 4 5506, 68039, 10040, 14812, 55676, 20614 #### [facility] [address] [facility] [address], [facility] RBC (Bld) [#/Vol] 4.06 10*6/uL Low 4.20-5.70 [facility] Comment on above: Performed By: #### 4 5506, 83760, 09388, 17546, 11902, 57437 #### [facility] [address] [facility] [address], [facility] WBC (Bld) [#/Vol] 7.68 10*3/uL Normal 4.00-10.60 [facility] Comment on above: Performed By: #### 4 5506, 04579, 12330, 31924, 71354, 07275 #### [facility] [address] [place] [address], [facility] COMP METABOLIC PANELon 10-31 Albumin [Mass/Vol] 4.4 g/dL Normal 3.5-5.7 [facility] Comment on above: Performed By: #### 4 5506, 69481, 35172, 53525, 88858, 04580 #### [facility] [address] [place] [address], [facility] ALKALINE PHOSPH 132 IU/L High 34-104 [facility] Comment on above: Performed By: #### 4 5506, 28332, 90654, 41537, 45661, 40855 #### [facility] [address] [place] [address], [facility] ALT [Catalytic activity/Vol] 26 U/L Normal 7-52 [facility] Comment on above: Performed By: #### 4 5506, 66831, 10744, 57613, 58528, 22898 #### [facility] [address] [place] [address], [place] AST [Catalytic activity/Vol] 17 U/L Normal 13-39 [facility] Comment on above: Performed By: #### 4 5506, 11433, 66386, 78303, 77017, 89412 #### [facility] [address] [place] [address], [facility] Bilirubin [Mass/Vol] 0.4 mg/dL Normal 0.3-1.0 [facility] Comment on above: Performed By: #### 4 5506, 18415, 26187, 87522, 40814, 68822 #### [facility] [address] [place] [address], [place] Calcium [Mass/Vol] 8.6 mg/dL Normal 8.6-10.3 [facility] Comment on above: Performed By: #### 4 5506, 01690, 20934, 94067, 43112, 86413 #### [facility] [address] [place] [address], [place] Chloride [Moles/Vol] 97 mmol/L Low 98-107 [facility] Comment on above: Performed By: #### 4 5506, 89634, 19245, 67495, 25742, 14933 #### [facility] [address] [place] [address], [facility] CO2 [Moles/Vol] 26 mmol/L Normal 21-31 [facility] Comment on above: Performed By: #### 4 5506, 93707, 83257, 35413, 65632, 97819 #### [facility] [address] [place] [address], [facility] Creatinine [Mass/Vol] 1.04 mg/dL Normal 0.70-1.30 [facility] Comment on above: Performed By: #### 4 5506, 09491, 55575, 03036, 67156, 03137 #### [facility] [address] [place] [address], [facility] GFR/1.73 sq M.predicted among blacks MDRD (S/P/Bld) [Vol rate/Area] mL/min/{1.73_m2} Normal >60 [facility] Comment on above: Performed By: #### 4 5506, 43069, 85317, 19212, 71659, 21941 #### [facility] [address] [place] [address], [place] GFR/1.73 sq M.predicted among non-blacks MDRD (S/P/Bld) [Vol rate/Area] mL/min/{1.73_m2} Normal >60 [facility] Comment on above: Performed By: #### 4 5506, 60402, 16796, 84242, 22406, 28146 #### [facility] [address] [place] [address], [place] Glucose [Mass/Vol] 158 mg/dL High 70-100 [facility] Comment on above: Performed By: #### 4 5506, 71679, 25984, 18917, 30202, 26493 #### [facility] [address] [place] [address], [facility] Potassium [Moles/Vol] 4.4 mmol/L Normal 3.5-5.1 [facility] Comment on above: Performed By: #### 4 5506, 45924, 61353, 94962, 06436, 54367 #### [facility] [address] [place] [address], [facility] Protein [Mass/Vol] 6.6 g/dL Normal 6.0-8.3 [facility] Comment on above: Performed By: #### 4 5506, 78410, 00644, 39032, 23116, 56996 #### [facility] [address] [place] [address], [facility] Sodium [Moles/Vol] 131 mmol/L Low 136-145 [facility] Comment on above: Performed By: #### 4 5506, 82313, 80624, 81268, 25536, 87286 #### [facility] [address] [place] [address], [facility] Urea nitrogen [Mass/Vol] 15 mg/dL Normal 7-25 [facility] Comment on above: Performed By: #### 4 5506, 63176, 44381, 76274, 15063, 01560 #### [facility] [address] [place] [address], [facility] DIRECT BILIon 10-31-2021 Bilirubin.direct [Mass/Vol] 0.1 mg/dL Normal 0.0-0.2 [facility] Comment on above: Performed By: #### 4 5506, 93178, 01827, 58060, 79554, 23814 #### [facility] [address] [place] [address], [facility] LIPID PROFILEon 10-31-2021 Cholesterol [Mass/Vol] 70 mg/dL Low 120-200 [facility] Comment on above: Result Comment: CHOL ESTEROL REFERENCE RANGE: 20 YEARS AND OLDER CARDIOVASCULAR RISK Less than 200 mg/dl Low Risk 200 to 239 mg/dl Borderline Risk 240 mg/dl and greater High Risk Performed By: #### 4 5506, 58274, 64261, 54051, 98099, 85594 #### [facility] [address] [place] [address], [place] Cholesterol in HDL [Mass/Vol] 35 mg/dL Normal 23-92 [facility] Comment on above: Result Comment: Slig ht variation in normal range could be due to gender and/or age. HDL CHOLESTEROL REFERENCE RANGE: 20 years and older Cardiovascular Risk > or =60 mg/dL Desirable 40 TO 59 mg/dL Low Risk <40 mg/dL High Risk Performed By: #### 4 5506, 76907, 14143, 54459, 95398, 83186 #### [facility] [address] [place] [address], [place] Cholesterol in LDL [Mass/Vol] 20 mg/dL Normal 0-130 [facility] Comment on above: Result Comment: LDL IS A CALCULATION LDL IS ONLY VALID IF THE TRIG IS LESS THAN 400. Performed By: #### 4 5506, 12419, 41876, 73610, 20670, 53914 #### [facility] [address] [place] [address], [place] Cholesterol.total/Cho lesterol in HDL [Mass ratio] 2.0 {ratio} Normal .0-4.5 [facility] Comment on above: Performed By: #### 4 5506, 10221, 85434, 90167, 91965, 41546 #### [facility] [address] [place] [address], [place] NON-HDL CHOLESTEROL 35 mg/dL Normal [facility] Comment on above: Performed By: #### 4 5506, 51181, 38042, 29275, 29249, 97648 #### [facility] [address] [place] [address], [place] Triglyceride [Mass/Vol] 73 mg/dL Normal 40-149 [facility] Comment on above: Result Comment: TRIG LYCERIDE REFERENCE RANGE: 20 YEARS AND OLDER CARDIOVASCULAR RISK LESS THAN 150 mg/dl LOW RISK 150 TO 199 mg/dl BORDERLINE RISK 200 mg/dl AND GREATER HIGH RISK Performed By: #### 4 5506, 48902, 81554, 37131, 23324, 00620 #### [facility] [address] [place] [address], [facility] VLDL CHOL 15 mg/dL Normal 0-40 [facility] Comment on above: Performed By: #### 4 5506, 70611, 05559, 66672, 85710, 96975 #### [facility] [address] [place] [address], [facility] MAGNESIUM BLOODon 10-31-2021 Magnesium [Mass/Vol] 1.1 mg/dL Critically low 1.9-2.7 [facility] Comment on above: Performed By: #### 4 5506, 51518, 34125, 09818, 73912, 42208 #### [facility] [address] [place] [address], [facility] PHOSPHORUS BLOODon Phosphate [Mass/Vol] 3.0 mg/dL Normal 2.5-5.0 [facility] Comment on above: Performed By: #### 4 5506, 58213, 30640, 99552, 42898, 97550 #### [facility] [address] [place] [address], [facility] PROSPERAon 10-31-2021 PROSPERA KIT Results to be mailed directly to physician's office by reference lab. Normal [facility] Comment on above: Result Comment: Test performed by [id number] [place] [address] Specimen collected for transplant patient and sent to [facility] per instructions. No charge. No result expected. For billing and tracking purposes only. Performed By: #### 4 5506, 08707, 35791, 92388, 70856, 46751 #### [facility] [address] RESULT Results to be mailed directly to physician's office by reference lab. Normal [facility] Comment on above: Performed By: #### 4 5506, 58466, 90288, 60348, 40960, 70523 #### [facility] 3000 [facility]. [address] TACROLIMUSon 10-31-2021 Tacrolimus (Bld) [Mass/Vol] 7.6 ng/mL Normal 5.0-20.0 [facility] Comment on above: Result Comment: The [employer] Tacrolimus assay is a delayed one-step immunoassay for the quantitative determination of tacrolimus in human whole blood using the chemiluminescent microparticle immunoassay (CMIA) technology with flexible assay protocols, referred to as Chemiflex. Performed By: #### 4 5506, 28487, 83242, 88357, 71690, 12207 #### [facility] 3000 [facility]. [address] URIC ACID BLOODon 10-31-2021 Urate [Mass/Vol] 7.8 mg/dL High 4.4-7.6 [facility] Comment on above: Performed By: #### 4 5506, 66792, 04311, 92060, 95755, 06229 #### [facility] 3000 [facility]. [address] NM PARATHYROID WITH SPECT AN D CTon 07-24-2021 NM PARATHYROID WITH SPECT AND [facility] Department of Radiology [address] [place] [id number] Patient Name: ROGER SUAREZ : 1950 Sex: M Age: Race: White Pt. Location: Patient Status: D Ordered Date: 06/26/2021 8:40:00 AM Completed Date: 07/24/2021 01:21 PM Requesting Provider: NAGA BOSCH Attending Provider: NAGA BOSCH Report Copy To: [email or web address] Signs & Symptoms: E21.3 Hyperparathyroidism, unspecified I10 History: Sammi NPC Req. per [facility] A/B for CPT 18796 *SLA Comments: , , , Ordering Provider [...] SPECT. Electronically signed: Nan Earl. Transcribed by: [email or web address], User Resident: Electronically Signed by: NAN EARL @ 07/27/2021 12:13 PM Normal [facility] Comment on above: Order Comment: , , = ========= , Ordering Provider - NAGA BOSCH MD , CBC W/DIFFon 06-22-2021 ABS IMM GRANS 0.1 10*3/uL Normal 0.0-0.2 [facility] Comment on above: Performed By: #### 4 5506, 38975, 54927, 31183, 11953, 80918 #### [facility] [address] ABS NEUTROPHILS 4.7 10*3/uL Normal 1.6-7.6 [facility] Comment on above: Performed By: #### 4 5506, 62295, 04499, 11443, 27177, 57066 #### [facility] [address] [place] [address], [facility] Basophils (Bld) [#/Vol] 0.0 10*3/uL Normal 0.0-0.2 [facility] Comment on above: Performed By: #### 4 5506, 64379, 63025, 65527, 57673, 11524 #### [facility] [address] [place] [address], [facility] Basophils/100 WBC (Bld) 0.6 % Normal 0.0-1.0 [facility] Comment on above: Performed By: #### 4 5506, 55312, 19819, 75465, 40033, 42928 #### [facility] [address] [facility] [place] [address], [facility] Eosinophils (Bld) [#/Vol] 0.2 10*3/uL Normal 0.0-0.5 [facility] Comment on above: Performed By: #### 4 5506, 88260, 47593, 16101, 55634, 18446 #### [facility] [address] Eosinophils/100 WBC (Bld) 2.5 % Normal 0.0-6.0 [facility] Comment on above: Performed By: #### 4 5506, 05844, 21295, 06895, 10136, 80889 #### [facility] 3000 [facility] [address] Erythrocyte distribution width (RBC) [Ratio] 13.6 % Normal 11.5-15.0 [facility] Comment on above: Performed By: #### 4 5506, 59833, 57806, 82006, 52179, 90544 #### [facility] 3000 [facility]. [address] Hematocrit (Bld) [Volume fraction] 36.3 % Low 39.0-50.0 [facility] Comment on above: Performed By: #### 4 5506, 73515, 49709, 98043, 66449, 77077 #### [facility] [address] [facility] [address] Hemoglobin (Bld) [Mass/Vol] 11.7 g/dL Low 13.0-17.0 [facility] Comment on above: Performed By: #### 4 5506, 37575, 89665, 01095, 87740, 44218 #### [facility] 3000 [facility]. [address] IMMATURE GRANS 0.8 % Normal 0.0-1.0 [facility] Comment on above: Performed By: #### 4 5506, 69057, 60654, 43078, 66682, 48511 #### [facility] [address] Lymphocytes (Bld) [#/Vol] 0.9 10*3/uL Low 1.2-4.0 [facility] Comment on above: Performed By: #### 4 5506, 98932, 48026, 34166, 78157, 24149 #### [facility] [address] [place] [address], [facility] Lymphocytes/100 WBC (Bld) 13.6 % Low 20.0-45.0 [facility] Comment on above: Performed By: #### 4 5506, 76383, 99069, 93373, 22153, 13093 #### [facility] [address] [place] [address], [facility] MCH (RBC) [Entitic mass] 28.6 pg Normal 27.0-33.0 [facility] Comment on above: Performed By: #### 4 5506, 56498, 27718, 86178, 02719, 41295 #### [facility] [address] [place] [address], [facility] MCHC (RBC) [Mass/Vol] 32.2 g/dL Normal 32.0-35.0 [facility] Comment on above: Performed By: #### 4 5506, 35772, 45513, 44071, 85332, 49919 #### [facility] [address] [facility] [address], [facility] MCV (RBC) [Entitic vol] 88.8 fL Normal 82.0-98.0 [facility] Comment on above: Performed By: #### 4 5506, 78188, 63191, 18062, 97389, 50259 #### [facility] [address] [facility] [address], [facility] Monocytes (Bld) [#/Vol] 0.6 10*3/uL Normal 0.1-1.0 [facility] Comment on above: Performed By: #### 4 5506, 81412, 62565, 27774, 96580, 18114 #### [facility] [address] [place] [address], [facility] MONOS 9.6 % Normal 5.0-12.0 [facility] Comment on above: Performed By: #### 4 5506, 03956, 62297, 21206, 00644, 47170 #### [facility] [address] [place] [address], [facility] Neutrophils/100 WBC (Bld) 72.9 % High 40.0-72.0 [facility] Comment on above: Performed By: #### 4 5506, 57526, 66392, 38804, 67821, 68544 #### [facility] [address] [place] [address], [facility] Nucleated RBC/100 WBC (Bld) [Ratio] 0 % Normal 0-0 [facility] Comment on above: Performed By: #### 4 5506, 47918, 96683, 51202, 69274, 69671 #### [facility] [address] [facility] [place] [address], [facility] PLAT CNT 263 10*3/uL Normal 150-400 [facility] Comment on above: Performed By: #### 4 5506, 24618, 78112, 40098, 40560, 32616 #### [facility] [address] [facility] [place] [address], [facility] RBC (Bld) [#/Vol] 4.09 10*6/uL Low 4.20-5.70 [facility] Comment on above: Performed By: #### 4 5506, 79716, 31578, 07796, 81571, 45988 #### [facility] [address] [facility] [place] [address], [place] WBC (Bld) [#/Vol] 6.45 10*3/uL Normal 4.00-10.60 [facility] Comment on above: Performed By: #### 4 5506, 93064, 50241, 99676, 40071, 66523 #### [facility] [address] [place] [address], [place] COMP METABOLIC PANELon 06-22 Albumin [Mass/Vol] 4.3 g/dL Normal 3.5-5.7 [facility] Comment on above: Performed By: #### 4 5506, 02057, 94227, 78300, 89406, 16492 #### [facility] [address] [place] [address], [facility] ALKALINE PHOSPH 143 IU/L High 34-104 [facility] Comment on above: Performed By: #### 4 5506, 85889, 09229, 47238, 90896, 95823 #### [facility] [address] [place] [address], [place] ALT [Catalytic activity/Vol] 18 U/L Normal 7-52 [facility] Comment on above: Performed By: #### 4 5506, 42210, 42779, 83037, 88894, 08718 #### [facility] [address] [place] [address], [place] AST [Catalytic activity/Vol] 15 U/L Normal 13-39 [facility] Comment on above: Performed By: #### 4 5506, 34566, 09793, 32781, 03281, 89159 #### [facility] [address] [place] [address], [facility] Bilirubin [Mass/Vol] 0.3 mg/dL Normal 0.3-1.0 [facility] Comment on above: Performed By: #### 4 5506, 75088, 91729, 52775, 03425, 28128 #### [facility] [address] [place] [address], [place] Calcium [Mass/Vol] 10.6 mg/dL High 8.6-10.3 [facility] Comment on above: Performed By: #### 4 5506, 11161, 55946, 94885, 42332, 62266 #### [facility] [address] [place] [address], [place] Chloride [Moles/Vol] 102 mmol/L Normal 98-107 [facility] Comment on above: Performed By: #### 4 5506, 75253, 32619, 04149, 35423, 25827 #### [facility] [address] [place] [address], [place] CO2 [Moles/Vol] 24 mmol/L Normal 21-31 [facility] Comment on above: Performed By: #### 4 5506, 56427, 88645, 58240, 82331, 81752 #### [facility] [address] [place] [address], [place] Creatinine [Mass/Vol] 1.04 mg/dL Normal 0.70-1.30 [facility] Comment on above: Performed By: #### 4 5506, 82518, 97788, 82736, 42843, 72044 #### [facility] [address] [place] [address], [facility] GFR/1.73 sq M.predicted among blacks MDRD (S/P/Bld) [Vol rate/Area] mL/min/{1.73_m2} Normal >60 [facility] Comment on above: Performed By: #### 4 5506, 89043, 84771, 62021, 62454, 16750 #### [facility] [address] [place] [address], [place] GFR/1.73 sq M.predicted among non-blacks MDRD (S/P/Bld) [Vol rate/Area] mL/min/{1.73_m2} Normal >60 [facility] Comment on above: Performed By: #### 4 5506, 87588, 45150, 71144, 50803, 96350 #### [facility] [address] [place] [address], [place] Glucose [Mass/Vol] 167 mg/dL High 70-100 [facility] Comment on above: Performed By: #### 4 5506, 25973, 72374, 33209, 76616, 27864 #### [facility] [address] [place] [address], [facility] Potassium [Moles/Vol] 5.3 mmol/L High 3.5-5.1 [facility] Comment on above: Performed By: #### 4 5506, 15702, 38924, 08451, 11399, 90278 #### [facility] [address] [place] [address], [facility] Protein [Mass/Vol] 6.5 g/dL Normal 6.0-8.3 [facility] Comment on above: Performed By: #### 4 5506, 30293, 25462, 26971, 89184, 41489 #### [facility] [address] [place] [address], [facility] Sodium [Moles/Vol] 134 mmol/L Low 136-145 [facility] Comment on above: Performed By: #### 4 5506, 51358, 62598, 09981, 43254, 97485 #### [facility] [address] [place] [address], [facility] Urea nitrogen [Mass/Vol] 11 mg/dL Normal 7-25 [facility] Comment on above: Performed By: #### 4 5506, 55118, 58985, 41978, 99602, 78534 #### [facility] [address] [place] [address], [facility] DIRECT BILIon 06-22-2021 Bilirubin.direct [Mass/Vol] 0.1 mg/dL Normal 0.0-0.2 [facility] Comment on above: Performed By: #### 4 5506, 49471, 49628, 21582, 91035, 29123 #### [facility] [address] [place] [address], [facility] LIPID PROFILEon 06-22-2021 Cholesterol [Mass/Vol] 77 mg/dL Low 120-200 [facility] Comment on above: Result Comment: CHOL ESTEROL REFERENCE RANGE: 20 YEARS AND OLDER CARDIOVASCULAR RISK Less than 200 mg/dl Low Risk 200 to 239 mg/dl Borderline Risk 240 mg/dl and greater High Risk Performed By: #### 4 5506, 18596, 39600, 86719, 39659, 94602 #### [facility] [address] [place] [address], [place] Cholesterol in HDL [Mass/Vol] 40 mg/dL Normal 23-92 [facility] Comment on above: Result Comment: Slig ht variation in normal range could be due to gender and/or age. HDL CHOLESTEROL REFERENCE RANGE: 20 years and older Cardiovascular Risk > or =60 mg/dL Desirable 40 TO 59 mg/dL Low Risk <40 mg/dL High Risk Performed By: #### 4 5506, 80537, 39756, 24578, 82653, 51836 #### [facility] [address] [place] [address], [place] Cholesterol in LDL [Mass/Vol] 24 mg/dL Normal 0-130 [facility] Comment on above: Result Comment: LDL IS A CALCULATION LDL IS ONLY VALID IF THE TRIG IS LESS THAN 400. Performed By: #### 4 5506, 54818, 87457, 51196, 90399, 38162 #### [facility] [address] [place] [address], [place] Cholesterol.total/Cho lesterol in HDL [Mass ratio] 1.9 {ratio} Normal .0-4.5 [facility] Comment on above: Performed By: #### 4 5506, 33228, 47944, 27044, 05805, 60913 #### [facility] [address] [place] [address], [place] NON-HDL CHOLESTEROL 37 mg/dL Normal [facility] Comment on above: Performed By: #### 4 5506, 11768, 87093, 21188, 03001, 29692 #### [facility] [address] [place] [address], [place] Triglyceride [Mass/Vol] 63 mg/dL Normal 40-149 [facility] Comment on above: Result Comment: TRIG LYCERIDE REFERENCE RANGE: 20 YEARS AND OLDER CARDIOVASCULAR RISK LESS THAN 150 mg/dl LOW RISK 150 TO 199 mg/dl BORDERLINE RISK 200 mg/dl AND GREATER HIGH RISK Performed By: #### 4 5506, 16124, 37078, 55933, 41920, 54522 #### [facility] [address] [place] [address], [facility] VLDL CHOL 13 mg/dL Normal 0-40 [facility] Comment on above: Performed By: #### 4 5506, 45705, 85621, 07362, 69313, 09820 #### [facility] [address] [place] [address], [facility] MAGNESIUM BLOODon 06-22-2021 Magnesium [Mass/Vol] 1.4 mg/dL Low 1.9-2.7 [facility] Comment on above: Performed By: #### 4 5506, 73800, 90390, 08066, 62438, 14767 #### [facility] [address] [place] [address], [facility] PHOSPHORUS BLOODon Phosphate [Mass/Vol] 2.5 mg/dL Normal 2.5-5.0 [facility] Comment on above: Performed By: #### 4 5506, 20346, 56707, 00009, 68796, 53934 #### [facility] [address] [place] [address], [facility] PTH INTACTon 06-22-2021 PTH INTACT 155 pg/mL High 12-88 [facility] Comment on above: Performed By: #### 4 5506, 61754, 11412, 06123, 00857, 16092 #### [facility] [address] [place] [address], [facility] TACROLIMUSon 06-22-2021 Tacrolimus (Bld) [Mass/Vol] 21.0 ng/mL High 5.0-20.0 [facility] Comment on above: Result Comment: The [employer] Tacrolimus assay is a delayed one-step immunoassay for the quantitative determination of tacrolimus in human whole blood using the chemiluminescent microparticle immunoassay (CMIA) technology with flexible assay protocols, referred to as Chemiflex. Performed By: #### 4 5506, 47439, 63212, 16201, 36202, 25836 #### [facility] [address] URIC ACID BLOODon 06-22-2021 Urate [Mass/Vol] 7.9 mg/dL High 4.4-7.6 [facility] Comment on above: Performed By: #### 4 5506, 39820, 82320, 81924, 56374, 91872 #### [facility] [address] CBC W/DIFFon 04-19-2021 ABS IMM GRANS 0.1 10*3/uL Normal 0.0-0.2 [facility] Comment on above: Performed By: #### 4 5506, 45027, 32639, 94575, 67783, 51902 #### [facility] [address] ABS NEUTROPHILS 5.2 10*3/uL Normal 1.6-7.6 [facility] Comment on above: Performed By: #### 4 5506, 65080, 30673, 49386, 83283, 99006 #### [facility] [address] Basophils (Bld) [#/Vol] 0.0 10*3/uL Normal 0.0-0.2 [facility] Comment on above: Performed By: #### 4 5506, 06664, 10053, 08931, 27065, 29625 #### [facility] [address] Basophils/100 WBC (Bld) 0.4 % Normal 0.0-1.0 [facility] Comment on above: Performed By: #### 4 5506, 20047, 27056, 68334, 28234, 81962 #### [facility] [address] [place] [address], [facility] Eosinophils (Bld) [#/Vol] 0.2 10*3/uL Normal 0.0-0.5 [facility] Comment on above: Performed By: #### 4 5506, 73838, 39103, 70437, 94350, 52541 #### [facility] [address] [place] [address], [facility] Eosinophils/100 WBC (Bld) 2.9 % Normal 0.0-6.0 [facility] Comment on above: Performed By: #### 4 5506, 15195, 30538, 47924, 82785, 60898 #### [facility] [address] Erythrocyte distribution width (RBC) [Ratio] 13.3 % Normal 11.5-15.0 [facility] Comment on above: Performed By: #### 4 5506, 46116, 74678, 05671, 85332, 74860 #### [facility] [address] [facility] [address] Hematocrit (Bld) [Volume fraction] 37.1 % Low 39.0-50.0 [facility] Comment on above: Performed By: #### 4 5506, 05626, 56104, 17027, 94464, 65790 #### [facility] [address] [place] [address], [facility] Hemoglobin (Bld) [Mass/Vol] 11.7 g/dL Low 13.0-17.0 [facility] Comment on above: Performed By: #### 4 5506, 26113, 54102, 82180, 72165, 29351 #### [facility] [address] [place] [address], [facility] IMMATURE GRANS 0.9 % Normal 0.0-1.0 [facility] Comment on above: Performed By: #### 4 5506, 77356, 74687, 60160, 66334, 43915 #### [facility] [address] [place] [address], [facility] Lymphocytes (Bld) [#/Vol] 0.9 10*3/uL Low 1.2-4.0 [facility] Comment on above: Performed By: #### 4 5506, 85974, 26359, 85214, 05874, 11802 #### [facility] [address] [facility] [place] [address], [facility] Lymphocytes/100 WBC (Bld) 12.5 % Low 20.0-45.0 [facility] Comment on above: Performed By: #### 4 5506, 98384, 93997, 26923, 07953, 93881 #### [facility] [address] [facility] [address] MCH (RBC) [Entitic mass] 29.0 pg Normal 27.0-33.0 [facility] Comment on above: Performed By: #### 4 5506, 57075, 19817, 69435, 60129, 95036 #### [facility] [address] [facility] [address], [facility] MCHC (RBC) [Mass/Vol] 31.5 g/dL Low 32.0-35.0 [facility] Comment on above: Performed By: #### 4 5506, 84906, 39612, 65276, 75241, 23383 #### [facility] [address] [facility] [place] [address], [facility] MCV (RBC) [Entitic vol] 92.1 fL Normal 82.0-98.0 [facility] Comment on above: Performed By: #### 4 5506, 47135, 50747, 81714, 87061, 04899 #### [facility] [address] [place] [address], [facility] Monocytes (Bld) [#/Vol] 0.6 10*3/uL Normal 0.1-1.0 [facility] Comment on above: Performed By: #### 4 5506, 22445, 64054, 38614, 56393, 84141 #### [facility] [address] [place] [address], [facility] MONOS 8.6 % Normal 5.0-12.0 [facility] Comment on above: Performed By: #### 4 5506, 50110, 22811, 41299, 95549, 19735 #### [facility] [address] [place] [address], [place] Neutrophils/100 WBC (Bld) 74.7 % High 40.0-72.0 [facility] Comment on above: Performed By: #### 4 5506, 46572, 85087, 86810, 28041, 50873 #### [facility] [address] [place] [address], [place] Nucleated RBC/100 WBC (Bld) [Ratio] 0 % Normal 0-0 [facility] Comment on above: Performed By: #### 4 5506, 11319, 07634, 82474, 74323, 18454 #### [facility] [address] [place] [address], [place] PLAT CNT 290 10*3/uL Normal 150-400 [facility] Comment on above: Performed By: #### 4 5506, 70322, 34678, 82401, 32673, 62824 #### [facility] [address] [place] [address], [place] RBC (Bld) [#/Vol] 4.03 10*6/uL Low 4.20-5.70 [facility] Comment on above: Performed By: #### 4 5506, 07873, 84997, 29785, 07086, 80420 #### [facility] [address] [place] [address], [place] WBC (Bld) [#/Vol] 6.96 10*3/uL Normal 4.00-10.60 [facility] Comment on above: Performed By: #### 4 5506, 79840, 76550, 41343, 54398, 72997 #### [facility] [address] [place] [address], [facility] COMP METABOLIC PANELon 04-19 Albumin [Mass/Vol] 4.3 g/dL Normal 3.5-5.7 [facility] Comment on above: Performed By: #### 4 5506, 48707, 22547, 88341, 42159, 99794 #### [facility] [address] [place] [address], [facility] ALKALINE PHOSPH 137 IU/L High 34-104 [facility] Comment on above: Performed By: #### 4 5506, 64751, 70571, 45288, 54353, 05491 #### [facility] [address] [place] [address], [place] ALT [Catalytic activity/Vol] 17 U/L Normal 7-52 [facility] Comment on above: Performed By: #### 4 5506, 66683, 55855, 31435, 59854, 81951 #### [facility] [address] [place] [address], [place] AST [Catalytic activity/Vol] 16 U/L Normal 13-39 [facility] Comment on above: Performed By: #### 4 5506, 40989, 35695, 94812, 92454, 36219 #### [facility] [address] [place] [address], [place] Bilirubin [Mass/Vol] 0.4 mg/dL Normal 0.3-1.0 [facility] Comment on above: Performed By: #### 4 5506, 86008, 99085, 14394, 56289, 51095 #### [facility] [address] [place] [address], [place] Calcium [Mass/Vol] 10.5 mg/dL High 8.6-10.3 [facility] Comment on above: Performed By: #### 4 5506, 39689, 20876, 79734, 33817, 63834 #### [facility] [address] [place] [address], [place] Chloride [Moles/Vol] 99 mmol/L Normal 98-107 [facility] Comment on above: Performed By: #### 4 5506, 30675, 39928, 14862, 37571, 64261 #### [facility] [address] [place] [address], [place] CO2 [Moles/Vol] 27 mmol/L Normal 21-31 [facility] Comment on above: Performed By: #### 4 5506, 01868, 50159, 87643, 34170, 02428 #### [facility] [address] [place] [address], [place] Creatinine [Mass/Vol] 1.04 mg/dL Normal 0.70-1.30 [facility] Comment on above: Performed By: #### 4 5506, 64549, 57521, 28596, 60560, 72245 #### [facility] [address] [place] [address], [place] GFR/1.73 sq M.predicted among blacks MDRD (S/P/Bld) [Vol rate/Area] mL/min/{1.73_m2} Normal >60 [facility] Comment on above: Performed By: #### 4 5506, 70154, 02192, 82896, 49529, 45809 #### [facility] [address] [place] [address], [place] GFR/1.73 sq M.predicted among non-blacks MDRD (S/P/Bld) [Vol rate/Area] mL/min/{1.73_m2} Normal >60 [facility] Comment on above: Performed By: #### 4 5506, 79596, 82270, 36922, 73093, 59778 #### [facility] [address] [place] [address], [place] Glucose [Mass/Vol] 139 mg/dL High 70-100 [facility] Comment on above: Performed By: #### 4 5506, 06107, 74291, 82609, 51862, 02336 #### [facility] [address] [place] [address], [place] Potassium [Moles/Vol] 5.1 mmol/L Normal 3.5-5.1 [facility] Comment on above: Performed By: #### 4 5506, 65089, 21143, 34980, 83776, 48889 #### [facility] [address] [place] [address], [place] Protein [Mass/Vol] 6.5 g/dL Normal 6.0-8.3 [facility] Comment on above: Performed By: #### 4 5506, 78634, 02148, 62835, 45864, 10695 #### [facility] [address] [place] [address], [place] Sodium [Moles/Vol] 133 mmol/L Low 136-145 [facility] Comment on above: Performed By: #### 4 5506, 12008, 06225, 42242, 76273, 55877 #### [facility] [address] [place] [address], [place] Urea nitrogen [Mass/Vol] 11 mg/dL Normal 7-25 [facility] Comment on above: Performed By: #### 4 5506, 67268, 40911, 52757, 34746, 99210 #### [facility] [address] [place] [address], [place] DIRECT BILIon 04-19-2021 Bilirubin.direct [Mass/Vol] 0.1 mg/dL Normal 0.0-0.2 [facility] Comment on above: Performed By: #### 4 5506, 27265, 23572, 80083, 37099, 87634 #### [facility] [address] [place] [address], [facility] LIPID PROFILEon 04-19-2021 Cholesterol [Mass/Vol] 82 mg/dL Low 120-200 [facility] Comment on above: Result Comment: CHOL ESTEROL REFERENCE RANGE: 20 YEARS AND OLDER CARDIOVASCULAR RISK Less than 200 mg/dl Low Risk 200 to 239 mg/dl Borderline Risk 240 mg/dl and greater High Risk Performed By: #### 4 5506, 02461, 08421, 23520, 88970, 67278 #### [facility] [address] [place] [address], [facility] Cholesterol in HDL [Mass/Vol] 38 mg/dL Normal 23-92 [facility] Comment on above: Result Comment: Slig ht variation in normal range could be due to gender and/or age. HDL CHOLESTEROL REFERENCE RANGE: 20 years and older Cardiovascular Risk > or =60 mg/dL Desirable 40 TO 59 mg/dL Low Risk <40 mg/dL High Risk Performed By: #### 4 5506, 59216, 81241, 22709, 08896, 78534 #### [facility] [address] [facility] [place] [address], [facility] Cholesterol in LDL [Mass/Vol] 25 mg/dL Normal 0-130 [facility] Comment on above: Result Comment: LDL IS A CALCULATION LDL IS ONLY VALID IF THE TRIG IS LESS THAN 400. Performed By: #### 4 5506, 34070, 03961, 07087, 75141, 54944 #### [facility] [address] [place] [address], [place] Cholesterol.total/Cho lesterol in HDL [Mass ratio] 2.2 {ratio} Normal .0-4.5 [facility] Comment on above: Performed By: #### 4 5506, 29427, 21951, 47175, 02986, 29898 #### [facility] [address] NON-HDL CHOLESTEROL 44 mg/dL Normal [facility] Comment on above: Performed By: #### 4 5506, 68723, 66438, 55505, 89094, 17112 #### [facility] [address] Triglyceride [Mass/Vol] 93 mg/dL Normal 40-149 [facility] Comment on above: Result Comment: TRIG LYCERIDE REFERENCE RANGE: 20 YEARS AND OLDER CARDIOVASCULAR RISK LESS THAN 150 mg/dl LOW RISK 150 TO 199 mg/dl BORDERLINE RISK 200 mg/dl AND GREATER HIGH RISK Performed By: #### 4 5506, 61624, 88363, 51114, 94877, 31655 #### [facility] [address] [place] [address], [facility] VLDL CHOL 19 mg/dL Normal 0-40 [facility] Comment on above: Performed By: #### 4 5506, 53648, 81609, 52168, 28636, 36022 #### [facility] [address] [place] [address], [facility] MAGNESIUM BLOODon 04-19-2021 Magnesium [Mass/Vol] 1.8 mg/dL Low 1.9-2.7 [facility] Comment on above: Performed By: #### 4 5506, 55926, 43223, 41022, 95358, 04743 #### [facility] [address] [place] [address], [facility] PHOSPHORUS BLOODon Phosphate [Mass/Vol] 3.0 mg/dL Normal 2.5-5.0 [facility] Comment on above: Performed By: #### 4 5506, 77095, 81118, 90638, 28164, 81825 #### [facility] [address] [place] [address], [facility] PROSPERAon 04-19-2021 PROSPERA KIT Results to be mailed directly to physician's office by reference lab. Normal [facility] Comment on above: Result Comment: Test performed by [id number] [place] [address] No result expected. For billing and tracking purposes only. Specimen collected for transplant patient [facility] per instructions. No charge. Performed By: #### 4 5506, 10049, 69508, 04586, 18927, 55818 #### [facility] [address] [facility]. [address] RESULT Results to be mailed directly to physician's office by reference lab. Normal [facility] Comment on above: Performed By: #### 4 5506, 26519, 08748, 90859, 87211, 95956 #### [facility] [address] TACROLIMUSon 04-19-2021 Tacrolimus (Bld) [Mass/Vol] 7.7 ng/mL Normal 5.0-20.0 [facility] Comment on above: Result Comment: The [employer] Tacrolimus assay is a delayed one-step immunoassay for the quantitative determination of tacrolimus in human whole blood using the chemiluminescent microparticle immunoassay (CMIA) technology with flexible assay protocols, referred to as Chemiflex. Performed By: #### 4 5506, 16773, 20471, 05419, 11609, 61662 #### [facility] [address] [facility]. [address] URIC ACID BLOODon 04-19-2021 Urate [Mass/Vol] 7.9 mg/dL High 4.4-7.6 [facility] Comment on above: Performed By: #### 4 5506, 06802, 08055, 79913, 78736, 33112 #### [facility] [address] [facility] [place] [address], [facility] CBC W/DIFFon 04-11-2021 ABS IMM GRANS 0.0 10*3/uL Normal 0.0-0.2 [facility] Comment on above: Performed By: #### 4 5506, 75031, 28385, 10780, 14247, 43756 #### [facility] [address] [place] [address], [facility] ABS NEUTROPHILS 4.5 10*3/uL Normal 1.6-7.6 [facility] Comment on above: Performed By: #### 4 5506, 63613, 64725, 71132, 41298, 46422 #### [facility] [address] [place] [address], [place] Basophils (Bld) [#/Vol] 0.0 10*3/uL Normal 0.0-0.2 [facility] Comment on above: Performed By: #### 4 5506, 97556, 35809, 32120, 52847, 17910 #### [facility] [address] [place] [address], [facility] Basophils/100 WBC (Bld) 0.5 % Normal 0.0-1.0 [facility] Comment on above: Performed By: #### 4 5506, 13618, 66583, 11589, 92805, 45340 #### [facility] [address] [place] [address], [facility] Eosinophils (Bld) [#/Vol] 0.2 10*3/uL Normal 0.0-0.5 [facility] Comment on above: Performed By: #### 4 5506, 10701, 17131, 83830, 69614, 06107 #### [facility] [address] [place] [address], [place] Eosinophils/100 WBC (Bld) 3.1 % Normal 0.0-6.0 [facility] Comment on above: Performed By: #### 4 5506, 66621, 46130, 07469, 15674, 00808 #### [facility] [address] [place] [address], [place] Erythrocyte distribution width (RBC) [Ratio] 13.4 % Normal 11.5-15.0 [facility] Comment on above: Performed By: #### 4 5506, 23659, 77100, 02961, 30220, 48168 #### [facility] [address] [facility] Hematocrit (Bld) [Volume fraction] 35.5 % Low 39.0-50.0 [facility] Comment on above: Performed By: #### 4 5506, 96408, 54132, 25300, 21481, 43990 #### [facility] [address] Hemoglobin (Bld) [Mass/Vol] 11.7 g/dL Low 13.0-17.0 [facility] Comment on above: Performed By: #### 4 5506, 80883, 62496, 28202, 61704, 05151 #### [facility] [address] [facility]. [address] IMMATURE GRANS 0.6 % Normal 0.0-1.0 [facility] Comment on above: Performed By: #### 4 5506, 56000, 84168, 19342, 98235, 41619 #### [facility] [address] [facility]. [address] Lymphocytes (Bld) [#/Vol] 0.8 10*3/uL Low 1.2-4.0 [facility] Comment on above: Performed By: #### 4 5506, 84547, 43755, 73731, 10370, 18389 #### [facility] [address] [facility] [address] Lymphocytes/100 WBC (Bld) 12.9 % Low 20.0-45.0 [facility] Comment on above: Performed By: #### 4 5506, 38166, 29148, 13354, 58396, 23071 #### [facility] [address] [place] [address], [facility] MCH (RBC) [Entitic mass] 29.2 pg Normal 27.0-33.0 [facility] Comment on above: Performed By: #### 4 5506, 97073, 79227, 28414, 05710, 47126 #### [facility] [address] [facility] [address] MCHC (RBC) [Mass/Vol] 33.0 g/dL Normal 32.0-35.0 [facility] Comment on above: Performed By: #### 4 5506, 39197, 49920, 84878, 13050, 60359 #### [facility] [address] [facility] [address] MCV (RBC) [Entitic vol] 88.5 fL Normal 82.0-98.0 [facility] Comment on above: Performed By: #### 4 5506, 79019, 18290, 65504, 22531, 79299 #### [facility] [address] [facility] [address] Monocytes (Bld) [#/Vol] 0.6 10*3/uL Normal 0.1-1.0 [facility] Comment on above: Performed By: #### 4 5506, 96276, 82727, 34054, 01816, 46273 #### [facility] [address] [facility] [address] MONOS 10.3 % Normal 5.0-12.0 [facility] Comment on above: Performed By: #### 4 5506, 24566, 69309, 26913, 34705, 25307 #### [facility] [address] [facility] [address], [facility] Neutrophils/100 WBC (Bld) 72.6 % High 40.0-72.0 [facility] Comment on above: Performed By: #### 4 5506, 11276, 66530, 23729, 10290, 04041 #### [facility] [address] [place] [address], [facility] Nucleated RBC/100 WBC (Bld) [Ratio] 0 % Normal 0-0 [facility] Comment on above: Performed By: #### 4 5506, 09311, 61245, 55601, 97293, 58490 #### [facility] [address] [place] [address], [facility] PLAT CNT 272 10*3/uL Normal 150-400 [facility] Comment on above: Performed By: #### 4 5506, 88762, 94835, 29840, 12715, 64167 #### [facility] [address] [facility]. [address] RBC (Bld) [#/Vol] 4.01 10*6/uL Low 4.20-5.70 [facility] Comment on above: Performed By: #### 4 5506, 04968, 52216, 27405, 07755, 72309 #### [facility] 3000 [facility]. [address] WBC (Bld) [#/Vol] 6.22 10*3/uL Normal 4.00-10.60 [facility] Comment on above: Performed By: #### 4 5506, 62493, 06368, 97437, 20851, 37572 #### [facility] [address] [facility]. [address] COMP METABOLIC PANELon 04-11 Albumin [Mass/Vol] 4.3 g/dL Normal 3.5-5.7 [facility] Comment on above: Performed By: #### 4 5506, 79285, 62155, 99800, 66303, 45680 #### [facility] [address] [facility]. [address] ALKALINE PHOSPH 115 IU/L High 34-104 [facility] Comment on above: Performed By: #### 4 5506, 02869, 51616, 34808, 42740, 45882 #### [facility] [address] [place] [address], [place] ALT [Catalytic activity/Vol] 16 U/L Normal 7-52 [facility] Comment on above: Performed By: #### 4 5506, 15988, 55381, 46205, 92665, 83270 #### [facility] [address] [place] [address], [place] AST [Catalytic activity/Vol] 15 U/L Normal 13-39 [facility] Comment on above: Performed By: #### 4 5506, 27377, 80358, 47639, 33410, 96058 #### [facility] [address] [place] [address], [place] Bilirubin [Mass/Vol] 0.6 mg/dL Normal 0.3-1.0 [facility] Comment on above: Performed By: #### 4 5506, 21468, 52600, 95607, 36484, 51201 #### [facility] [address] [place] [address], [place] Calcium [Mass/Vol] 10.3 mg/dL Normal 8.6-10.3 [facility] Comment on above: Performed By: #### 4 5506, 47236, 57637, 60958, 43913, 01622 #### [facility] [address] [place] [address], [place] Chloride [Moles/Vol] 97 mmol/L Low 98-107 [facility] Comment on above: Performed By: #### 4 5506, 24427, 57459, 39155, 82838, 68391 #### [facility] [address] [place] [address], [place] CO2 [Moles/Vol] 26 mmol/L Normal 21-31 [facility] Comment on above: Performed By: #### 4 5506, 34927, 38870, 89512, 69669, 20913 #### [facility] [address] [place] [address], [place] Creatinine [Mass/Vol] 0.93 mg/dL Normal 0.70-1.30 [facility] Comment on above: Performed By: #### 4 5506, 32445, 79336, 41748, 30112, 83197 #### [facility] [address] [place] [address], [place] GFR/1.73 sq M.predicted among blacks MDRD (S/P/Bld) [Vol rate/Area] mL/min/{1.73_m2} Normal >60 [facility] Comment on above: Performed By: #### 4 5506, 90958, 87903, 98683, 11327, 97881 #### [facility] [address] [place] [address], [place] GFR/1.73 sq M.predicted among non-blacks MDRD (S/P/Bld) [Vol rate/Area] mL/min/{1.73_m2} Normal >60 [facility] Comment on above: Performed By: #### 4 5506, 04118, 96289, 72423, 12221, 45468 #### [facility] [address] [place] [address], [place] Glucose [Mass/Vol] 136 mg/dL High 70-100 [facility] Comment on above: Performed By: #### 4 5506, 70134, 84901, 80094, 63456, 98153 #### [facility] [address] [place] [address], [place] Potassium [Moles/Vol] 5.2 mmol/L High 3.5-5.1 [facility] Comment on above: Performed By: #### 4 5506, 50688, 35754, 80704, 50945, 23473 #### [facility] [address] [place] [address], [place] Protein [Mass/Vol] 6.7 g/dL Normal 6.0-8.3 [facility] Comment on above: Performed By: #### 4 5506, 15943, 06404, 52972, 93782, 91661 #### [facility] [address] [place] [address], [facility] Sodium [Moles/Vol] 129 mmol/L Low 136-145 [facility] Comment on above: Performed By: #### 4 5506, 02689, 91682, 64810, 95649, 13715 #### [facility] [address] [place] [address], [facility] Urea nitrogen [Mass/Vol] 10 mg/dL Normal 7-25 [facility] Comment on above: Performed By: #### 4 5506, 63237, 09846, 59262, 53827, 50954 #### [facility] [address] [place] [address], [facility] DIRECT BILIon 04-11-2021 Bilirubin.direct [Mass/Vol] 0.2 mg/dL Normal 0.0-0.2 [facility] Comment on above: Performed By: #### 4 5506, 81271, 94540, 31214, 45403, 77782 #### [facility] [address] [place] [address], [facility] LIPID PROFILEon 04-11-2021 Cholesterol [Mass/Vol] 84 mg/dL Low 120-200 [facility] Comment on above: Result Comment: CHOL ESTEROL REFERENCE RANGE: 20 YEARS AND OLDER CARDIOVASCULAR RISK Less than 200 mg/dl Low Risk 200 to 239 mg/dl Borderline Risk 240 mg/dl and greater High Risk Performed By: #### 4 5506, 28368, 27116, 27265, 15048, 32683 #### [facility] [address] [place] [address], [facility] Cholesterol in HDL [Mass/Vol] 41 mg/dL Normal 23-92 [facility] Comment on above: Result Comment: Slig ht variation in normal range could be due to gender and/or age. HDL CHOLESTEROL REFERENCE RANGE: 20 years and older Cardiovascular Risk > or =60 mg/dL Desirable 40 TO 59 mg/dL Low Risk <40 mg/dL High Risk Performed By: #### 4 5506, 65683, 19361, 46023, 19131, 70376 #### [facility] [address] [place] [address], [facility] Cholesterol in LDL [Mass/Vol] 34 mg/dL Normal 0-130 [facility] Comment on above: Result Comment: LDL IS A CALCULATION LDL IS ONLY VALID IF THE TRIG IS LESS THAN 400. Performed By: #### 4 5506, 96441, 39882, 53853, 51427, 02651 #### [facility] [address] [place] [address], [facility] Cholesterol.total/Cho lesterol in HDL [Mass ratio] 2.0 {ratio} Normal .0-4.5 [facility] Comment on above: Performed By: #### 4 5506, 70561, 61061, 31109, 78170, 11066 #### [facility] [address] [place] [address], [facility] NON-HDL CHOLESTEROL 43 mg/dL Normal [facility] Comment on above: Performed By: #### 4 5506, 75089, 15912, 95821, 31150, 02716 #### [facility] [address] [place] [address], [facility] Triglyceride [Mass/Vol] 47 mg/dL Normal 40-149 [facility] Comment on above: Result Comment: TRIG LYCERIDE REFERENCE RANGE: 20 YEARS AND OLDER CARDIOVASCULAR RISK LESS THAN 150 mg/dl LOW RISK 150 TO 199 mg/dl BORDERLINE RISK 200 mg/dl AND GREATER HIGH RISK Performed By: #### 4 5506, 56776, 82418, 48414, 78149, 38050 #### [facility] [address] [place] [address], [place] VLDL CHOL 9 mg/dL Normal 0-40 [facility] Comment on above: Performed By: #### 4 5506, 48807, 21616, 96224, 81875, 99888 #### [facility] [address] [place] [address], [facility] MAGNESIUM BLOODon 04-11-2021 Magnesium [Mass/Vol] 1.3 mg/dL Low 1.9-2.7 [facility] Comment on above: Performed By: #### 4 5506, 65373, 29264, 93183, 78012, 74675 #### [facility] [address] [place] [address], [facility] PHOSPHORUS BLOODon Phosphate [Mass/Vol] 2.6 mg/dL Normal 2.5-5.0 [facility] Comment on above: Performed By: #### 4 5506, 39139, 37662, 20404, 94587, 35950 #### [facility] [address] [facility] [address] TACROLIMUSon 04-11-2021 Tacrolimus (Bld) [Mass/Vol] 8.3 ng/mL Normal 5.0-20.0 [facility] Comment on above: Result Comment: The [employer] Tacrolimus assay is a delayed one-step immunoassay for the quantitative determination of tacrolimus in human whole blood using the chemiluminescent microparticle immunoassay (CMIA) technology with flexible assay protocols, referred to as Chemiflex. Performed By: #### 4 5506, 37823, 55431, 46972, 15961, 46231 #### [facility] [address] [facility] [address], [facility] URIC ACID BLOODon 04-11-2021 Urate [Mass/Vol] 8.4 mg/dL High 4.4-7.6 [facility] Comment on above: Performed By: #### 4 5506, 58796, 59243, 63284, 32004, 52158 #### [facility] [address] [facility] [address] BK VIRUS QUANTITATION FOR PL ASMAon 02-16-2021 BKV Plasma Quantitation by PCR Not detected Normal [facility] Comment on above: Result Comment: Meth od: BK virus was measured by quantitative polymerase chain reaction using a fluorescent hydrolysis probe targeting the polyomavirus BK [employer]SF[employer] WORKER-1 gene. The lower limit of quantitation of the assay is 500 copies of BK genome per milliliter of plasma or urine, and any detectable BK DNA below that level is reported as: Detected, <500 copies/ml. Serial BK virus measurement can be used to monitor disease activity. (Reference: Katina hernandez. J CLIN MICRO 2004; 42:7678-1790). This test was developed and its performance characteristics determined by the [facility]. It has not been approved by the [place] Food and Drug Administration. However, such approval is not required for clinical implementation, and test results have been shown to be clinically useful. This laboratory is CAP accredited and CLIA certified to perform high complexity testing. Performed By: #### 4 5506, 36402, 31758, 36845, 02000, 27825 #### [facility] [address] BKV Plasma Quantitation Log by PCR Not detected Normal [facility] Comment on above: Performed By: #### 4 5506, 42237, 09925, 35071, 98211, 39533 #### [facility] [address] CBC W/DIFFon 02-16-2021 ABS IMM GRANS 0.1 10*3/uL Normal 0.0-0.2 [facility] Comment on above: Performed By: #### 4 5506, 42875, 91746, 83792, 80555, 21937 #### [facility] [address] ABS NEUTROPHILS 5.8 10*3/uL Normal 1.6-7.6 [facility] Comment on above: Performed By: #### 4 5506, 47639, 80210, 59528, 75469, 51360 #### [facility] [address] Basophils (Bld) [#/Vol] 0.0 10*3/uL Normal 0.0-0.2 [facility] Comment on above: Performed By: #### 4 5506, 94552, 06443, 43036, 72727, 64395 #### [facility] [address] [place] [address], [facility] Basophils/100 WBC (Bld) 0.4 % Normal 0.0-1.0 [facility] Comment on above: Performed By: #### 4 5506, 39803, 89158, 02132, 27841, 12379 #### [facility] [address] [place] [address], [facility] Eosinophils (Bld) [#/Vol] 0.3 10*3/uL Normal 0.0-0.5 [facility] Comment on above: Performed By: #### 4 5506, 65679, 20777, 46067, 69032, 66110 #### [facility] [address] [place] [address], [facility] Eosinophils/100 WBC (Bld) 3.5 % Normal 0.0-6.0 [facility] Comment on above: Performed By: #### 4 5506, 11673, 15046, 20424, 78694, 99023 #### [facility] [address] [place] [address], [place] Erythrocyte distribution width (RBC) [Ratio] 13.6 % Normal 11.5-15.0 [facility] Comment on above: Performed By: #### 4 5506, 28730, 79415, 55575, 58052, 86391 #### [facility] [address] [place] [address], [place] Hematocrit (Bld) [Volume fraction] 34.1 % Low 39.0-50.0 [facility] Comment on above: Performed By: #### 4 5506, 00217, 76713, 42704, 09279, 43053 #### [facility] [address] [place] [address], [place] Hemoglobin (Bld) [Mass/Vol] 11.6 g/dL Low 13.0-17.0 [facility] Comment on above: Performed By: #### 4 5506, 14224, 78281, 06012, 22621, 93445 #### [facility] [address] [place] [address], [facility] IMMATURE GRANS 0.8 % Normal 0.0-1.0 [facility] Comment on above: Performed By: #### 4 5506, 45581, 44669, 51131, 33519, 11107 #### [facility] [address] [place] [address], [facility] Lymphocytes (Bld) [#/Vol] 0.7 10*3/uL Low 1.2-4.0 [facility] Comment on above: Performed By: #### 4 5506, 87270, 30129, 66399, 76106, 82438 #### [facility] [address] [place] [address], [facility] Lymphocytes/100 WBC (Bld) 9.2 % Low 20.0-45.0 [facility] Center Comment on above: Performed By: #### 4 5506, 55415, 10324, 23572, 56172, 50360 #### [facility] [address] [place] [address], [facility] MCH (RBC) [Entitic mass] 29.5 pg Normal 27.0-33.0 [facility] Comment on above: Performed By: #### 4 5506, 16696, 63079, 07981, 62019, 42924 #### [facility] [address] [place] [address], [facility] MCHC (RBC) [Mass/Vol] 34.0 g/dL Normal 32.0-35.0 [facility] Comment on above: Performed By: #### 4 5506, 44807, 62482, 33362, 35803, 95031 #### [facility] 3000 [facility]. [address] MCV (RBC) [Entitic vol] 86.8 fL Normal 82.0-98.0 [facility] Comment on above: Performed By: #### 4 5506, 86278, 78266, 85538, 22705, 64466 #### [facility] [address] [facility] [place] [address], [facility] Monocytes (Bld) [#/Vol] 0.8 10*3/uL Normal 0.1-1.0 [facility] Comment on above: Performed By: #### 4 5506, 99176, 06483, 98484, 11629, 51313 #### [facility] [address] MONOS 10.3 % Normal 5.0-12.0 [facility] Comment on above: Performed By: #### 4 5506, 97785, 75594, 93949, 90300, 44708 #### [facility] [address] Neutrophils/100 WBC (Bld) 75.8 % High 40.0-72.0 [facility] Comment on above: Performed By: #### 4 5506, 93196, 42742, 41539, 51107, 13207 #### [facility] 3000 [facility]. [address] Nucleated RBC/100 WBC (Bld) [Ratio] 0 % Normal 0-0 [facility] Comment on above: Performed By: #### 4 5506, 00802, 86557, 63707, 38920, 72747 #### [facility] [address] [facility] [place] [address], [facility] PLAT CNT 256 10*3/uL Normal 150-400 [facility] Comment on above: Performed By: #### 4 5506, 36310, 24055, 33413, 92206, 28804 #### [facility] [address] [facility] [place] [address], [facility] RBC (Bld) [#/Vol] 3.93 10*6/uL Low 4.20-5.70 [facility] Comment on above: Performed By: #### 4 5506, 66634, 36529, 84541, 95913, 54456 #### [facility] [address] [place] [address], [facility] WBC (Bld) [#/Vol] 7.65 10*3/uL Normal 4.00-10.60 [facility] Comment on above: Performed By: #### 4 5506, 23096, 90598, 76976, 59792, 52863 #### [facility] [address] [place] [address], [facility] COMP METABOLIC PANELon 02-16 Albumin [Mass/Vol] 4.6 g/dL Normal 3.5-5.7 [facility] Comment on above: Performed By: #### 0 0121, 45961, 30670, 76671, 49370, 73700, 45532, 33485 #### [facility] [address] [facility] [place] [address], [facility] ALKALINE PHOSPH 136 IU/L High 34-104 [facility] Comment on above: Performed By: #### 0 0121, 47521, 77208, 48898, 82218, 72594, 96522, 86793 #### [facility] 3000 [facility] [address] ALT [Catalytic activity/Vol] 22 U/L Normal 7-52 [facility] Comment on above: Performed By: #### 0 0121, 65242, 02375, 77194, 19480, 04067, 55371, 45533 #### [facility] [address] [place] [address], [facility] AST [Catalytic activity/Vol] 18 U/L Normal 13-39 [facility] Comment on above: Performed By: #### 0 0121, 65000, 12920, 04482, 02608, 87402, 13399, 14086 #### [facility] [address] [place] [address], [place] Bilirubin [Mass/Vol] 0.5 mg/dL Normal 0.3-1.0 [facility] Comment on above: Performed By: #### 0 0121, 80315, 13065, 57243, 29592, 36484, 79600, 41286 #### [facility] [address] [place] [address], [place] Calcium [Mass/Vol] 10.5 mg/dL High 8.6-10.3 [facility] Comment on above: Performed By: #### 0 0121, 41921, 36402, 51796, 01604, 48357, 71802, 13323 #### [facility] [address] [place] [address], [place] Chloride [Moles/Vol] 94 mmol/L Low 98-107 [facility] Comment on above: Performed By: #### 0 0121, 15002, 51801, 88196, 15441, 65612, 34238, 80617 #### [facility] [address] [place] [address], [place] CO2 [Moles/Vol] 28 mmol/L Normal 21-31 [facility] Comment on above: Performed By: #### 0 0121, 08089, 65761, 89784, 06783, 55815, 36866, 73191 #### [facility] [address] [place] [address], [place] Creatinine [Mass/Vol] 0.93 mg/dL Normal 0.70-1.30 [facility] Comment on above: Performed By: #### 0 0121, 93717, 80247, 54937, 68963, 82321, 99820, 84640 #### [facility] [address] [place] [address], [place] GFR/1.73 sq M.predicted among blacks MDRD (S/P/Bld) [Vol rate/Area] mL/min/{1.73_m2} Normal >60 [facility] Comment on above: Performed By: #### 0 0121, 49541, 76874, 61581, 59187, 66744, 23184, 19917 #### [facility] [address] [place] [address], [place] GFR/1.73 sq M.predicted among non-blacks MDRD (S/P/Bld) [Vol rate/Area] mL/min/{1.73_m2} Normal >60 [facility] Comment on above: Performed By: #### 0 0121, 41298, 97728, 87321, 69178, 70011, 76605, 73462 #### [facility] [address] [place] [address], [place] Glucose [Mass/Vol] 147 mg/dL High 70-100 [facility] Comment on above: Performed By: #### 0 0121, 16699, 79125, 49505, 38578, 08392, 50287, 38112 #### [facility] [address] [place] [address], [place] Potassium [Moles/Vol] 4.6 mmol/L Normal 3.5-5.1 [facility] Comment on above: Performed By: #### 0 0121, 52302, 33324, 39137, 28361, 70834, 02860, 38833 #### [facility] [address] [place] [address], [place] Protein [Mass/Vol] 7.2 g/dL Normal 6.0-8.3 [facility] Comment on above: Performed By: #### 0 0121, 19519, 46585, 31093, 69140, 50789, 76383, 81126 #### [facility] [address] [place] [address], [place] Sodium [Moles/Vol] 129 mmol/L Low 136-145 [facility] Comment on above: Performed By: #### 0 0121, 64354, 88655, 25628, 83685, 04264, 79865, 79891 #### [facility] [address] [place] [address], [facility] Urea nitrogen [Mass/Vol] 15 mg/dL Normal 7-25 [facility] Comment on above: Performed By: #### 0 0121, 91457, 57593, 28314, 60182, 34207, 22937, 84012 #### [facility] [address] [place] [address], [facility] DIRECT BILIon 02-16-2021 Bilirubin.direct [Mass/Vol] 0.2 mg/dL Normal 0.0-0.2 [facility] Comment on above: Performed By: #### 4 5506, 45058, 83995, 78795, 05339, 39889 #### [facility] [address] [place] [address], [facility] HEMOGLOBIN A1Con 02-16-2021 Glucose [Moles/Vol] 154 mmol/L Normal [facility] Comment on above: Performed By: #### 4 5506, 91221, 92232, 30224, 84236, 76958 #### [facility] [address] [place] [address], [facility] HbA1c (Bld) [Mass fraction] 7.0 % High 4.0-6.0 [facility] Comment on above: Performed By: #### 4 5506, 63527, 35098, 38991, 08405, 64750 #### [facility] [address] [place] [address], [facility] LIPID PROFILEon 02-16-2021 Cholesterol [Mass/Vol] 78 mg/dL Low 120-200 [facility] Comment on above: Result Comment: CHOL ESTEROL REFERENCE RANGE: 20 YEARS AND OLDER CARDIOVASCULAR RISK Less than 200 mg/dl Low Risk 200 to 239 mg/dl Borderline Risk 240 mg/dl and greater High Risk Performed By: #### 0 0121, 29793, 50665, 04491, 50874, 63368, 61827, 07588 #### [facility] [address] [place] [address], [place] Cholesterol in HDL [Mass/Vol] 41 mg/dL Normal 23-92 [facility] Comment on above: Result Comment: Slig ht variation in normal range could be due to gender and/or age. HDL CHOLESTEROL REFERENCE RANGE: 20 years and older Cardiovascular Risk > or =60 mg/dL Desirable 40 TO 59 mg/dL Low Risk <40 mg/dL High Risk Performed By: #### 0 0121, 74761, 84478, 30247, 34070, 45649, 66860, 22949 #### [facility] [address] [place] [address], [place] Cholesterol in LDL [Mass/Vol] 28 mg/dL Normal 0-130 [facility] Comment on above: Result Comment: LDL IS A CALCULATION LDL IS ONLY VALID IF THE TRIG IS LESS THAN 400. Performed By: #### 0 0121, 88632, 50950, 42602, 71054, 25898, 30835, 64149 #### [facility] [address] [place] [address], [place] Cholesterol.total/Cho lesterol in HDL [Mass ratio] 1.9 {ratio} Normal .0-4.5 [facility] Comment on above: Performed By: #### 0 0121, 94395, 34646, 97721, 62485, 56376, 34639, 85122 #### [facility] [address] [place] [address], [place] NON-HDL CHOLESTEROL 37 mg/dL Normal [facility] Comment on above: Performed By: #### 0 0121, 14646, 92517, 55912, 92998, 34450, 43058, 44033 #### [facility] [address] [place] [address], [place] Triglyceride [Mass/Vol] 44 mg/dL Normal 40-149 [facility] Comment on above: Result Comment: TRIG LYCERIDE REFERENCE RANGE: 20 YEARS AND OLDER CARDIOVASCULAR RISK LESS THAN 150 mg/dl LOW RISK 150 TO 199 mg/dl BORDERLINE RISK 200 mg/dl AND GREATER HIGH RISK Performed By: #### 0 0121, 32502, 62000, 46817, 25498, 84479, 28293, 44296 #### [facility] [address] [place] [address], [facility] VLDL CHOL 9 mg/dL Normal 0-40 [facility] Comment on above: Performed By: #### 0 0121, 46186, 15108, 12395, 22558, 71546, 79934, 41527 #### [facility] [address] [place] [address], [facility] MAGNESIUM BLOODon 02-16-2021 Magnesium [Mass/Vol] 1.5 mg/dL Low 1.9-2.7 [facility] Comment on above: Performed By: #### 4 5506, 97686, 00816, 82715, 91754, 23009 #### [facility] [address] [place] [address], [facility] PHOSPHORUS BLOODon Phosphate [Mass/Vol] 2.4 mg/dL Low 2.5-5.0 [facility] Comment on above: Performed By: #### 0 0121, 01101, 99891, 57657, 68052, 90496, 45178, 39796 #### [facility] [address] [place] [address], [facility] PROSPERAon 02-16-2021 PROSPERA KIT Results to be mailed directly to physician's office by reference lab. Normal [facility] Comment on above: Result Comment: Test performed by [id number] [place] [id number] No result expected. For billing and tracking purposes only. Specimen collected for transplant patient and sent to [facility] per Dr instructions. No charge. Performed By: #### 4 5506, 76614, 22773, 38291, 07870, 85395 #### [facility] [address] [place] [address], [facility] RESULT Results to be mailed directly to physician's office by reference lab. Normal [facility] Comment on above: Performed By: #### 4 5506, 58893, 67669, 15570, 93058, 67853 #### [facility] [address] [place] [address], [facility] PTH INTACTon 02-16-2021 PTH INTACT 123 pg/mL High 12-88 [facility] Comment on above: Performed By: #### 4 5506, 01554, 47658, 53993, 49455, 40795 #### [facility] [address] [facility] [address] SINGLE ANTIGEN CLASS 1on METHOD Class I Single Antigen Normal [facility] Comment on above: Order Comment: [...] to frequency. Performed By: #### 4 5506, 67453, 36720, 61353, 11362, 94257 #### [facility] [address] [place] [address], [facility] SINGLE ANTIGEN CLASS 2on COMMENTS Normal [facility] Comment on above: Order Comment: [...] not probable, due to frequency. Result Comment: Sim collado specificites added to the watch list. Class II Antigen Microbeads Performed By: #### 4 5506, 33341, 09748, 96904, 11573, 52676 #### [facility] [address] Result Comment: No C lass I donor specific antibody identified Class I Antigen Microbeads METHOD Class II Single Antigen Normal [facility] Comment on above: Order Comment: [...] to frequency. Performed By: #### 4 5506, 75839, 20172, 95066, 38426, 16525 #### [facility] [address] [facility] [address] SIGNED BY Normal [facility] Comment on above: Order Comment: [...] frequency. Result Comment: Jose A Lara, MS,CHT(IRINEO),MT(ASCP) Office Professional, Transplant Immunology Performed By: #### 4 5506, 50443, 84665, 01621, 40481, 13626 #### [facility] [address] TACROLIMUSon 02-16-2021 Tacrolimus (Bld) [Mass/Vol] 7.0 ng/mL Normal 5.0-20.0 [facility] Comment on above: Result Comment: The [employer] Tacrolimus assay is a delayed one-step immunoassay for the quantitative determination of tacrolimus in human whole blood using the chemiluminescent microparticle immunoassay (CMIA) technology with flexible assay protocols, referred to as Chemiflex. Performed By: #### 4 5506, 28183, 08709, 96084, 24943, 21343 #### [facility] [address] [place] [address], [facility] TESTOSTERONE, FREE+SHBG+TOTA L ILon 02-16-2021 [place] Normal [facility] Comment on above: Result Comment: Test Performed by [employer] [address] [place] [address] - Released 02/16/2021 18:49 SEX HORM BIND GLOB 52 nmol/L Normal 11-80 [facility] Testosterone [Mass/Vol] 399 ng/dL Normal 220-1000 [facility] TESTOSTERONE, FREE 60.0 pg/mL Normal 47-244 [facility] Comment on above: Result Comment: The concentration of free testosterone is derived from a mathematical expression based on the constant for the binding of testosterone to albumin and/or sex hormone binding globulin. URIC ACID BLOODon 02-16-2021 Urate [Mass/Vol] 8.0 mg/dL High 4.4-7.6 [facility] Comment on above: Performed By: #### 0 0121, 95552, 59636, 36919, 73174, 40118, 88360, 51360 #### [facility] [address] [place] [address], [facility] VITAMIN D 25-HYDROXYon 02-16 VITAMIN D 25-OH 35.1 ng/mL Normal 30.0-80.0 [facility] Comment on above: Result Comment: >80. 0 Toxicity possible Performed By: #### 4 5506, 43332, 93624, 17046, 40043, 08362 #### [facility] [address] [place] [address], [facility] Vital Signs Date Time Vital Sign Value Performing Clinician Facility 03-05-2022 09:30-0400 Diastolic blood pressure 74 mm[Hg] MD Jericho Mccarthy Work Phone: [facility] 03-05-2022 09:30-0400 Heart rate 58 /min MD Jericho Mccarthy Work Phone: [facility] 03-05-2022 09:30-0400 Respiratory rate 18 /min MD Jericho Mccarthy Work Phone: [facility] 03-05-2022 09:30-0400 SaO2% (BldA) [Mass fraction] 99 % MD Jericho Mccarthy Work Phone: [facility] 03-05-2022 09:30-0400 Systolic blood pressure 133 mm[Hg] MD Jericho Mccarthy Work Phone: [facility] 03-05-2022 07:01-0400 Body height 167.64 cm MD Jericho Mccarthy Work Phone: [facility] 03-05-2022 07:01-0400 Body temperature 97.9 [degF] MD Jericho Mccarthy Work Phone: [facility] 03-05-2022 07:01-0400 Body weight 74.84 kg MD Jericho Mccarthy Work Phone: [facility] 01-21-2022 10:30-0400 Body height 167.64 cm Tj Wells Other [facility] Other 01-21-2022 10:30-0400 Body mass index (BMI) [Ratio] 26.47 kg/m2 Tj Wells Other [facility] Other 01-21-2022 10:30-0400 Body weight 74.39 kg Tj Wells Other [facility] Other 01-21-2022 10:30-0400 Diastolic blood pressure 71 mm[Hg] Tj Wells Other [facility] Other 01-21-2022 10:30-0400 Systolic blood pressure 148 mm[Hg] Tj Wells Other [facility] Other Encounters Encounter Date Encounter Type Care Provider Facility Start: 05-22-2023 End: 05-22-2023 ambulatory JERICHO MCCARTHY Not Available Start: 05-19-2023 End: 05-19-2023 ambulatory JERICHO ABAD [facility] Start: 04-28-2023 Evaluation and management of inpatient ESTHER HORDORA [facility] Start: 04-28-2023 Evaluation and management of inpatient NOBOBJASVIR ARGUELLODARCY [facility] Start: 04-28-2023 End: 04-30-2023 Evaluation and management of inpatient MENDY DEONTE [facility] Start: 04-22-2023 End: 04-22-2023 ambulatory BENJA MCGHEE [facility] Start: 11-11-2022 End: 11-11-2022 ambulatory JERICHO ABAD [facility] Start: 10-04-2022 End: 10-04-2022 ambulatory MARIO EGAN [facility] Start: 10-03-2022 End: 10-04-[address] DOCTOR MCCABE Facility:[facility] Start: 08-30-2022 End: 08-31-[address] DOCTOR MCCABE Facility:[facility] Start: 08-01-2022 End: 08-02-[address] ALVAREZ MISC Facility:[facility] Start: 07-04-2022 End: 07-05-[address] DOCTOR MCCABE Facility:[facility] Start: 05-23-2022 End: 05-24-[address] ALVAREZ MISC Facility:[facility] Start: 04-30-2022 End: 05-01-[address] ALVAREZ MISImani Facility:[facility] Start: 04-03-2022 End: 04-04-[address] DOCTOR MCCABE Facility:[facility] Start: 03-08-2022 End: 03-09-[address] NAGA BOSCH Facility:[facility] Start: 03-05-2022 End: 03-05-2022 ambulatory Tj Wells Facility:[facility] Start: 03-05-2022 End: 03-05-2022 Admission to same day surgery center MD Jericho Mccarthy Work Phone: [facility] Start: 03-05-2022 End: 03-05-2022 ambulatory MD Jericho Mccarthy Work Phone: [facility] Work Phone: Start: 03-01-2022 End: 03-01-2022 ambulatory Tj Wells Facility:[facility] Start: 03-01-2022 End: 03-01-2022 ambulatory MD Jericho Mccarthy Work Phone: [facility] Work Phone: Start: 03-01-2022 End: 03-01-2022 Patient encounter procedure MD Jericho Mccarthy Work Phone: [facility] Start: 02-01-2022 End: 02-02-[address] DOCTOR MCCABE Facility:[facility] Start: 01-21-2022 End: 01-21-2022 ambulatory Tj Wells Other [facility] Other Start: 01-21-2022 Office outpatient ne w 45 minutes Tj Wells [facility] Gastroenterology Start: 01-04-2022 End: 01-05-[address] [...] Date Care Activity Detail Author Start: 03-05-2022 [facility] Patient Education [facility] Work Phone: Immunizations Immunization Date Immunization Notes Care Provider German vargas 04-30-2021 COVID-19 mRNA Bivale nt Booster (Pfizer) MD Jericho Mccarthy Work Phone: [facility] 08-01-2020 COVID-19 mRNA, Comirnaty (Pfizer) MD Jericho Mccarthy Work Phone: [facility] 07-12-2020 COVID-19 mRNA Comirnatjuju (Pfizer) MD Jericho Mccarthy Work Phone: [facility] 02-13-2017 influenza, seasonal, injectable Tj Wells Other [facility] Other 06-27-2016 influenza, seasonal, injectable Tj Wells Other [facility] Other 02-01-2016 pneumococcal polysaccharide vaccine, 23 valent Tj Wells Other [facility] Other Payers Date Payer Category Payer Private Health Insurance [id number] 2022 Self-pay [id number] 2022 Unknown [id number] 1958 Medicare [id number] 2.1 [id number] 1959 Private Health Insurance [id number] [id number] 1951 Unknown [id number] 2.16.84 0.1.013590.3.579.2.593 1951 Unknown [id number] 2.16.84 0.1.969749.3.579.2.593 1950 Unknown [id number] 2.16.84 0.1.373445.3.579.2.593 1951 Unknown [id number] 2.16.84 0.1.082636.3.579.2.593 1951 Unknown [id number] 2.16.84 0.1.941337.3.579.2.593 1951 Unknown [id number] 2.16.84 0.1.754738.3.579.2.593 1951 Unknown [id number] 2.16.84 0.1.176255.3.579.2.593 1951 Unknown [id number] 2.16.84 0.1.209107.3.579.2.593 1951 Unknown [id number] 2.16.84 0.1.398732.3.579.2.593 1951 Unknown [id number] 2.16.84 0.1.755895.3.579.2.593 1951 Unknown [id number] 2.16.84 0.1.085960.3.579.2.593 1951 Unknown [id number] 2.16.84 0.1.636792.3.579.2.593 1951 Unknown [id number] 2.16.84 0.1.763041.3.579.2.1259 Unknown [id number] 2.16.8 40.1.195164.3.579.2.531 Unknown [id number] 2.16.8 40.1.229052.3.579.2.531 Social History Date Type Detail Facility Unknown if ever smoked [facility] Other Sex Assigned At Sex Assigned At Bir th [facility] Other Start: 11-11-2019 End: 03-05-2022 Tobacco smoking status NHIS Ex-smoker (finding) [facility] Start: 1950 Sex Assigned At Male F [facility] Medical Equipment Procedure Code Equipment Code Equipment Original Text Equipment Identifier Dates Creation or revision of arteriovenous fistula GRAFT ARTEGRAFT 6MM X 40CM FDA Start: 01-14-2017 Creation or revision of arteriovenous fistula GRAFT ARTEGRAFT 6MM X 40CM FDA Start: 01-14-2017 Goals Date Patient Goal Desired Activity /State Clinical Notes 09-09-2009 to 05-19-2023 Note Date & Type Note Facility 05-19-2023 Note Per phone order of Petr woo MD, Mag IV 3 grams ordered Mag 1.3. BOP notified. Pt notified by phone, states he recently resumed the Amiloride. He is not certain he will agree to return for the infusion. States he reviewed the low Mag level today with Jericho Doran [facility]CASTER and was taking 8-9 tablets daily but is now reducing to Mag Oxide 800mg TID. [facility] 05-19-2023 Note 05/19/23 Chief Complaint Patient presents with Kidney Follow-up No concerns PCP: Jericho Mccarthy MD Txp Referring: Preferred Pharmacy: [facility][id number] [place], [place] - [address] [facility] [address] [facility] [id number] [facility] [address] [address] [facility] [address] [place] [address] [address] Subjective Visit Vitals BP 120/62 (BP Location: Right arm, Patient Position: Sitting, BP Cuff Size: Small adult) Pulse 55 Temp 36.6 ???C (97.8 ???F) (Oral) Resp 16 Ht 1.676 m (5' 6 ) Wt 71.7 kg (158 lb) BMI 25.50 kg/m??? Smoking Status Former BSA 1.83 m??? Allergies Allergen Reactions Nsaids (Non-Steroidal Anti-Inflammatory Drug) Medication Documentation Review Audit Reviewed by Jaja Omer LPN (Licensed Nurse) on 05/19/23 at 0836 Medication Order Taking? Sig Documenting Provider Last Dose Status aMILoride (Midamor) 5 mg tablet [id number] Yes Take 5 mg by mouth in the morning. Historical Provider, MD Taking Active amLODIPine (Norvasc) 10 mg tablet [id number] Yes Take 1 tablet (10 mg) by mouth in the morning. Benja Mcghee MD Taking Active atorvastatin (Lipitor) 10 mg tablet [id number] Yes Take 1 tablet (10 mg) by mouth every other day. Mario Egan NP Taking Active blood-glucose meter misc [id number] Yes Test daily before all meals/snacks and once before bedtime. With 100 lancets and strips Esther Garduno MD Taking Active carvedilol (Coreg) 12.5 mg tablet [id number] Yes Take 1 tablet (12.5 mg) by mouth with breakfast and with evening meal. Mario Egan NP Taking Active cinacalcet (Sensipar) 30 mg tablet [id number] Yes Take 1 tablet every day by oral route. Praveena Cohen MD Taking Active furosemide (Lasix) 20 mg tablet [id number] Yes take 1 tablet by mouth once daily Naga Bosch MD Taking Active insulin glargine (Lantus Solostar U-100 Insulin) 100 unit/mL (3 mL) injection pen [id number] Yes Inject 20 Units under the skin at bedtime. Esther Garduno MD Taking Active isopropyl alcohoL 70 % towelette [id number] Yes Test daily before all meals/snacks and once before bedtime. Esther Garduno MD Taking Active lisinopril 20 mg tablet [id number] Yes Take 1 tablet (20 mg) by mouth in the morning. Benja Mcghee MD Taking Active magnesium oxide (Mag-Ox) 400 mg (241.3 mg magnesium) tablet [id number] Yes take 2 tablets by mouth three times a day with meals Woodrow Root MD Taking Active metFORMIN (Glucophage) 500 mg tablet [id number] Yes Take 1 tablet (500 mg) by mouth with breakfast and with evening meal. Esther Garduno MD Taking Active mycophenolate (Myfortic) 180 mg EC tablet [id number] Yes Take 4 tablets (720 mg) by mouth in the morning and at bedtime. Jericho Abad NP Taking Active omeprazole OTC (PriLOSEC OTC) 20 mg EC tablet [id number] Yes Take 1 tablet (20 mg) by mouth before breakfast. Do not crush, chew, or split. Esther Garduno MD Taking Active pen needle, diabetic 31 gauge x 5/16 needle [id number] Yes Use to inject 1-4 times daily as directed. Esther Garduno MD Taking Active sildenafil (Revatio) 20 mg tablet [id number] Yes Take 1 tablet 3 times a day by oral route for 90 days. Benja Mcghee MD Taking Active sulfaSALAzine (Azulfidine) 500 mg EC tablet [id number] Yes Take 500 mg by mouth in the morning and at bedtime. Dane Kerr MD Taking Active tacrolimus (Prograf) 0.5 mg capsule [id number] Yes Take 1 capsule (0.5 mg) by [...] hypertension, benign Pleurisy with effusion Polycystic kidney DAVID (acute kidney injury) (CMS/HCC) Hypomagnesemia Family History Problem Relation Name Age of Onset Diabetes Mother Hypertension Mother Coronary artery disease Mother Other (cabg) Mother Cystic kidney disease Mother Hypertension Father Skin cancer Father Cystic kidney disease Father Cystic kidney disease Sister Heart disease Brother ALS Brother (more content not included)... [facility] 05-14-2023 Note Patient states he mi ssed a few doses of magnesium and will get back started on and restart the amlodipine per Dr Dk dhaliwal. [facility] 04-30-2023 Note Attestation signed by Ananda Pan [...] transplant clinic. Nephrology Progress Note Patient : Roger Suarez; 72 y.o. Location: 5172/5172-01 Attending: Esther Garduno MD Admit Date: 04/27/2023 Hospital Day: 3 Reason for Consult: ESRD s/p Renal transplant Subjective: History of present illness: Roger Suarez is a 72 y.o. male is a 72 y.o. male with PMHx ESRD d/t PKD s/p renal transplant 2019, HTN, HLD, CAD, PVD, COPD, pulmonary hypertension, HFrEF (EF 45%) and NIDDM2. Patient admitted on 04/27/2023 as a transfer from outside hospital in [place] for concerns of possible DKA, hyponatremia, and [...] Dose Status aMILoride (Midamor) 5 mg tablet [id number] Take 1 tablet (5 mg) by mouth in the morning. Woodrow Root MD Active amLODIPine (Norvasc) 10 mg tablet [id number] Take 1 tablet (10 mg) by mouth in the morning. Benja Mcghee MD Active atorvastatin (Lipitor) 10 mg tablet [id number] Take 1 tablet (10 mg) by mouth every other day. Mario Egan NP Active carvedilol (Coreg) 12.5 mg tablet [id number] Take 1 tablet (12.5 mg) by mouth with breakfast and with evening meal. Mario Egan NP Active cinacalcet (Sensipar) 30 mg tablet [id number] Take 1 tablet every day by oral route. Praveena Cohen MD Active furosemide (Lasix) 20 mg tablet [id number] take 1 tablet by mouth once daily Naga Bosch MD Active lisinopril 20 mg tablet [id number] Take 1 tablet (20 mg) by mouth in the morning. Benja Mcghee MD Active magnesium oxide (Mag-Ox) 400 mg (241.3 mg magnesium) tablet [id number] take 2 tablets by mo (more content not included)... [facility] 04-30-2023 Note Hospital Medicine Discharge Summary Final Discharge Diagnosis: DKA Admission Diagnosis: DAVID (acute kidney injury) ([facility]) [N17.9] Hospital course: 72 y.o. male who came from home with DAVID with hyponatremia and uncontrolled hyperglycemia. This is a 72 years old gentleman with a medical history of end-stage renal disease s/p renal transplant 3 years ago here in [facility], peripheral vascular disease, pulmonary hypertension, CAD, and hypertension. Mixed hyperlipidemia, COPD, polycystic kidneys, cataract. Came in as transfer from the outside facility hospital in [place] for concern of possible uncontrolled hyperglycemia with [...] - Continue sildenafil. Dear Dr. Fabio MD, Roger Pillai is advised to follow up with you within 1-2 weeks. Follow-up with: Endocrine and Nephrology Scheduled appointments: Future Appointments Date Time Provider Department Center 05/02/2023 9:00 AM Ramos Hendrickson PA-C [facility] ENDOCR [facility] 05/19/2023 9:00 AM Jericho Abad NP TXP [...] aMILoride 5 mg tablet Commonly known as: Midamor Where to Get Your Medications These medications were sent to [id number] - [place], [place] - [address] [address] blood-glucose meter [facility] insulin glargine 100 unit/mL (3 mL) injection pen isopropyl alcohoL 70 % towelette metFORMIN 500 mg tablet pen needle, diabetic 31 gauge x 5/16 needle You can get these medications from any pharmacy You don't need a prescription for these medications omeprazole OTC 20 mg EC tablet Roger Pillai is allergic to nsaids (non-steroidal anti-inflammatory [...] [phone] - (more content not included)... [facility] 04-29-2023 Note Hospital Medicine Daily Progress Note - 04/29/2023 11:18 AM; Room: [address] [place] [address] Admission: 04/27/2023 10:59 PM; Length of stay: 2 days THE HOSPITALIST TEAM PREFERS TO USE [employer] CHAT FOR COMMUNICATION 7AM-7PM. IF I DO NOT RESPOND WITHIN 15 MINUTES, PLEASE PAGE ME/CALL THROUGH THE SENIOR TECHNICAL BUSINESS ANALYST. FROM 7PM-7AM, PLEASE PAGE [phone](COVR) Code Status: Full Code Barriers to Discharge: [...] Problems Principal Problem: DAVID (acute kidney injury) ([facility]) Assessment and Plan # DKA in newly [...] Academy of Nutrition and Dietetics and the [employer] Society of Enteral and Parenteral Nutrition, meets [...] days Lab Units 04/29/23 0403 04/29/23 0000 04/28/23202504/28/23 0514 04/27/23 2336 SODIUM mmol/L 133* 132* [...] 0.67-0.73. Medial ki (more content not included)... [facility] 04-29-2023 Note Attestation signed by [...] dose accordingly. Nephrology Progress Note Patient : Roger Suarez; 72 y.o. Location: 5172/5172-01 Attending: Esther Garduno MD Admit Date: 04/27/2023 Hospital Day: 2 Reason for Consult: ESRD s/p Renal transplant Subjective: History of present illness: Roger Suarez is a 72 y.o. male is a 72 y.o. male with PMHx ESRD d/t PKD s/p renal transplant 2019, HTN, HLD, CAD, PVD, COPD, pulmonary hypertension, HFrEF (EF 45%) and NIDDM2. Patient admitted on 04/27/2023 as a transfer from outside hospital in [place] for concerns of possible DKA, hyponatremia, and [...] Dose Status aMILoride (Midamor) 5 mg tablet [id number] Take 1 tablet (5 mg) by mouth in the morning. Woodrow Root MD Active amLODIPine (Norvasc) 10 mg tablet [id number] Take 1 tablet (10 mg) by mouth in the morning. Benja Mcghee MD Active atorvastatin (Lipitor) 10 mg tablet [id number] Take 1 tablet (10 mg) by mouth every other day. Mario Egan NP Active carvedilol (Coreg) 12.5 mg tablet [id number] Take 1 tablet (12.5 mg) by mouth with breakfast and with evening meal. Mario Egan NP Active cinacalcet (Sensipar) 30 mg tablet [id number] Take 1 tablet every day by oral route. Praveena Cohen MD Acti (more content not included)... [facility] 04-28-2023 Note Hospital Medicine Daily Progress Note - 04/28/2023 12:34 PM; Room: [address] [place] [address] Admission: 04/27/2023 10:59 PM; Length of stay: 1 days THE HOSPITALIST TEAM PREFERS TO USE [employer] CHAT FOR COMMUNICATION 7AM-7PM. IF I DO NOT RESPOND WITHIN 15 MINUTES, PLEASE PAGE ME/CALL THROUGH THE SENIOR TECHNICAL BUSINESS ANALYST. FROM 7PM-7AM, PLEASE PAGE [phone](COVR) Code Status: Full Code Barriers to Discharge: [...] (155 lb). Active Inpatient Problems Principal Problem: DAVDI (acute kidney injury) ([facility]) Assessment and Plan # DKA in newly [...] Academy of Nutrition and Dietetics and the [employer] Society of Enteral and Parenteral Nutrition, meets [...] Cardiac silhouette is (more content not included)... [facility] 04-28-2023 Note . Hospital Medicine History and Physical 04/27/2023 11:16 PM THE HOSPITALIST TEAM PREFERS TO USE [employer] CHAT FOR COMMUNICATION 7AM-7PM. IF I DO NOT RESPOND WITHIN 15 MINUTES, PLEASE PAGE ME/CALL THROUGH THE SENIOR TECHNICAL BUSINESS ANALYST. FROM 7PM-7AM, PLEASE PAGE [phone](COVR) Chief Complaint No chief complaint on file. History of Present Illness Roger Suarez is an 72 y.o. male who came from home with DAVID with hyponatremia and uncontrolled hyperglycemia. This is a 72 years old gentleman with a medical history of end-stage renal disease s/p renal transplant 3 years ago here in [facility], peripheral vascular disease, pulmonary hypertension, CAD, and hypertension. Mixed hyperlipidemia, COPD, polycystic kidneys, cataract. Came in as transfer from the outside facility hospital in [place] for concern of possible uncontrolled hyperglycemia with [...] Diagnosis Date Noted DAVID (acute kidney injury) ([facility]) 04/27/2023 COLD (chronic obstructive lung disease) ([facility]) 04/16/2023 Essential hypertension, benign 04/16/2023 Pleurisy with effusion 04/16/2023 Polycystic kidney 04/16/2023 Moderate mixed hyperlipidemia not requiring statin therapy 04/16/2022 Cataract 01/29/2022 Congestive heart failure ([facility]) 01/29/2022 Coronary atherosclerosis 01/29/2022 Multiple congenital cysts of kidney 01/29/2022 History of renal transplant 10/31/2021 Increased infection risk status post immunosuppressive therapy 10/31/2021 Peripheral vascular disease ([facility]) 01/23/2018 End-stage renal disease ([facility]) 07/22/2009 Assessment and Plan #Acute kidney injury [...] this hospital stay by a member of [facility]. Past Medical History Past Medical History: Diagnosis Date CHF (congestive heart failure) ([facility]/HCC) Chronic kidney disease Coronary artery disease Hypertension Pulmonary hypertension ([facility]/HCC) Past Surgical History Past Surgical History: Procedure [...] file Tobacco Use (more content not included)... [facility] 04-22-2023 Note [place] [facility] - [facility] Subjective Roger Suarez is a 72 y.o. year old male patient being seen for 6 mo follow up pulmonary hypertension, CAD, and hypertension. C/o dizziness and LUE numbness. Denies chest pain and palpitations. ORTEGA is intermittent. Patient Active Problem List Diagnosis Cataract Congestive heart failure (CMS/HCC) Coronary atherosclerosis End-stage renal disease ([facility]/HCC) History of renal transplant Peripheral vascular disease ([facility]/HCC) Increased infection risk status post immunosuppressive therapy [...] use: Not Currently Drug use: Never HPI Roger Suarez is seen in follow up. He [...] overload/acute heart failure admission on 08/2018 at [facility]. He had couple of dialysis session during [...] lower extremity edema. Cardiac catheterization 03/04/2019: 1. Ldtu-[id number] single-vessel coronary artery disease with 50% stenosis in the mid to distal circumflex and minimal disease in the LAD and RCA. 2. Moderate elevation of filling pressures. 3. Moderate pulmonary hypertension. 4. Preserved cardiac output and cardiac index. RA 8, RV 59/4, 12. PA (more content not included)... [facility] 04-02-2023 Note New standing lab ord er placed in today's outgoing mail. Following call from clinic [facility] that pt is @ [facility] for lab draws, faxed to [phone] new order and requested [place] fax all lab results to [place] [facility] as last monthly lab results were received September 2022. Pt notified order sent & mailed and to contact [place] transplant monthly when labs are completed to confirm receipt or have testing @ [facility]. He acknowledged. Encouraged to FU next week with [place] [facility]. [facility] 11-13-2022 Note Received call from lazara huntley inquiring about Amiloride. Rx sent as ordered on Friday. Pt mailed tips for diarrhea stating liquid Maalox is not helpful. States he is taking six Mag tablets every day. Reviewed probiotic and Miralax tip with pt by phone. Verbalized understanding. [facility] 11-11-2022 Note Notified pt that his Hgb AIC 8.5 and to contact PCP for improved glucose control to preserve health of kidney transplant and general health. Pt verbalized understanding. [facility] 11-11-2022 Note Updated Dk MOSES by phone today Reviewed Mag level 1.3 and per MD phone order start Amiloride 5mg every day and to watch K levels. Detailed voicemail left on home phone [phone] with new Rx, reason for change and to watch K levels. Tac pending. No voicemail on listed cell phone. Spoke with lis Miller emergency contact [phone] who sets up his meds. She was advised of new RX and she stated she is unsure if pt is taking Mag Oxide due to side effects of diarrhea. Advised to resume dosing and discussed tips for diarrhea including liquid Maalox with each dose and she verbalized understanding (states she had kidney transplant and takes Mag). Plans to fill amiloride dosing. [facility] 11-11-2022 Note 11/11/22 Chief Complaint Patient presents with Kidney Follow-up 6 mo follow No concerns PCP: Jericho Mccarthy MD Txp Referring: Preferred Pharmacy: [id number] [address] [facility] - [address] [address] Subjective Visit Vitals BP 134/61 (BP Location: Right arm, Patient Position: Sitting) Pulse 56 Temp 36.4 ???C (97.6 ???F) (Oral) Ht 1.676 m (5' 6 ) Wt 77.7 kg (171 lb 6.4 oz) BMI 27.66 kg/m??? Smoking Status Former BSA 1.9 m??? Allergies Allergen Reactions Nsaids (Non-Steroidal Anti-Inflammatory Drug) Medication Documentation Review Audit Reviewed by Judith Royal MA (Glazing Machine Operator) on 11/11/22 at 0830 Medication Order Taking? Sig Documenting Provider Last Dose Status amLODIPine (Norvasc) 10 mg tablet [id number] Yes Take 1 tablet (10 mg) by mouth in the morning. Benja Mcghee MD Taking Active atorvastatin (Lipitor) 10 mg tablet [id number] Yes Take 1 tablet (10 mg) by mouth every other day. Mario Egan NP Taking Active carvedilol (Coreg) 12.5 mg tablet [id number] Yes Take 1 tablet (12.5 mg) by mouth with breakfast and with evening meal. Mario Egan NP Taking Active cinacalcet (Sensipar) 30 mg tablet [id number] Yes Take 1 tablet every day by oral route. Praveena Cohen MD Taking Active furosemide (Lasix) 20 mg tablet [id number] Yes take 1 tablet by mouth once daily Naga Bosch MD Taking Active lisinopril 20 mg tablet [id number] Yes Take 1 tablet by mouth in the morning. Historical Provider, Taking Active magnesium oxide (Mag-Ox) 400 mg (241.3 mg magnesium) tablet [id number] Yes take 2 tablets by mouth three times a day with meals Woodrow Root MD Taking Active mycophenolate (Myfortic) 180 mg EC tablet [id number] Yes Take 4 tablets (720 mg) by mouth in the morning and at bedtime. Jericho Abad NP Taking Active sildenafil (Revatio) 20 mg tablet [id number] Yes Take 1 tablet 3 times a day by oral route for 90 days. Mario Egan NP Taking Active sulfaSALAzine (Azulfidine) 500 mg EC tablet [id number] Yes Take 500 mg by mouth in the morning and at bedtime. Historical Provider, Taking Active tacrolimus (Prograf) 0.5 mg capsule [id number] Yes Take 1 capsule (0.5 mg) by [...] 10/12/22 No documented travel since 10/12/22 HPI Roger Suarez is a 71 y.o. male who End-stage renal disease secondary to Polycystic Kidneys who underwent donor kidney transplant on 02/26/2020 (Kidney). 11/11/22 Pt here for office visit. Pt Hx: end-stage renal disease secondary to polycystic kidney disease and was on hemodialysis since 07/22/2009. He also has medical history of hypertension, heart roshan (more content not included)... [facility] 10-04-2022 Note Patient here for 6 m o follow up CAD, pulmonary hypertension, and hx of renal transplant. Just had monthly labs drawn yesterday. Denies chest pain and SOB. No new cardiac symptoms. Doing well. Review of Systems Cardiovascular: Positive for leg swelling. Musculoskeletal: Positive for arthritis and back pain. Neurological: Positive for light-headedness. All other systems reviewed and are negative. [facility] 10-04-2022 Note Cardiovascular Medic [facility] SUBJECTIVE Chief Complaint Patient presents with Coronary Artery Disease Hypertension Congestive Heart Failure Roger Suarez is a 71 y.o. male here [...] Ref Range Status (more content not included)... [facility] 03-05-2022 Procedure note [facility] 01-21-2022 Evaluation note Encounter Date Diagnosis Assessment Notes Jan, Diarrhea (ICD-10 - R19.7) Colonoscopy Okay to take Imodium - 1 tablet every morning Jan, Fecal urgency (ICD-10 - R15.2) [facility] Other 05-01-2010 History general Narrative - Reported* [...] Hospitalization History Kidney Issue; on transplant list ([facility]) 02/2018 Hospitalization History pulmonary embolism 0 [facility] Other Evaluation noteNo assessment information available [facility] Work Phone: Evaluation note* Diagnosis Onset Date Resolution Status Diarrhea acute [facility] Work Phone: Hospital Discharge instructions [...] if you have any problems. -Office number [phone] Work Phone: Reason for visit NarrativePATIENT REFERRED BY DR. MCCARTHY FOR EVALUATION AND TREATMENT OF DIARRHEAGreenville [facility]iva Other Summary Purpose Family History No Family History Records Found Relationship Condition Age at Onset Recorded Date/T shohsana Not Specified Congenital polycystic kidney Unknown Diabetes [...] section and content) DATE CREATED AUTHOR 07/13/2019 [facility] DATE CREATED AUTHOR AUTHOR'S ORGANIZ ATION 11/02/2021 [facility] DATE CREATED AUTHOR AUTHOR'S ORGANIZ ATION 03/12/2022 [facility] DATE CREATED AUTHOR AUTHOR'S ORGANIZ ATION 10/18/2022 [facility] DATE CREATED AUTHOR AUTHOR'S ORGANIZ ATION 05/23/2023 [facility] DATE CREATED AUTHOR AUTHOR'S ORGANIZ ATION 06/12/2023 [facility] Care Teams (unrecognized sec tion and content) Team Status: Inactive Member Role Status Dates Jericho Mccarthy MD Primary Care Provider Active Tj Wells MD Attending Provider Active Team Status: Active Member Role Status Dates Jericho Mccarthy MD Primary Care Provider Active Goals (unrecognized [...] BE BASED ON THE PRIMARY CLINICAL RECORDS. [employer] [facility]. provides no warranty or guarantee of the accuracy or completeness of information in this document.
[2023-07-08 07:26] LABS: Basophils Percent Auto 0.5 % (0.2-2.0); Eosinophils Absolute Auto 0.2 10^3/uL (0.0-0.7); Eosinophils Percent Auto 2.5 % (0.9-7.0); Hematocrit 33.3 % (42.0-54.0); Hemoglobin 10.7 g/dL (14.0-18.0); Immature Granulocytes Abs Auto 0.05 10^3/uL (0.00-0.03); Immature Granulocytes Pct Auto 0.7 % (0.0-0.5); Lymphocytes Absolute Auto 0.9 10^3/uL (1.2-3.8); Lymphocytes Percent Auto 11.8 % (20.5-60.0); Mean Corpuscular HGB Conc 32.1 g/dL (29.9-35.2); Mean Corpuscular Hemoglobin 28.8 pg (25.9-34.0); Mean Corpuscular Volume 89.8 fL (80.0-94.0); Mean Platelet Volume 8.7 fL (9.5-13.5); Monocytes Absolute Auto 0.6 10^3/uL (0.3-0.8); Monocytes Percent Auto 8.2 % (1.7-12.0); Neutrophils Absolute Auto 5.7 10^3/uL (1.4-6.5); Neutrophils Percent Auto 76.3 % (43.0-75.0); Platelet Count 239 10^3/uL (150-450); Red Blood Count 3.71 10^6/uL (4.70-6.10); Red Cell Distribution Width 13.6 % (11.0-15.0); White Blood Count 7.5 10^3/uL (4.0-11.0)
[2023-07-08 07:44] LABS: Alanine Aminotransferase 15 U/L (16-63); Albumin Globulin Ratio 1.2; Albumin Level 3.8 g/dL (3.4-5.0); Alkaline Phosphatase 90 U/L (46-116); Anion Gap 7.4; Aspartate Amino Transferase 13 U/L (15-37); BUN Creatinine Ratio 17.4; Bilirubin Direct 0.1 mg/dL (0.0-0.2); Bilirubin Total 0.4 mg/dL (0.2-1.0); Calcium 8.9 mg/dL (8.5-10.1); Carbon Dioxide 28.5 mmol/L (21.0-32.0); Chloride 93 mmol/L (98-107); Chol HDL Ratio 1.6; Cholesterol 91 mg/dL (<=200); Estimated GFR (African America >60 (>=60); Estimated GFR (Non-African Ame >60 (>=60); Globulin 3.3 g/dL; Glucose 86 mg/dL (74-106); HDL Cholesterol 57 mg/dL (40-60); LDL Cholesterol Calculated 29.2 mg/dL; Magnesium 1.6 mg/dL (1.8-2.4); Phosphorus 4.2 mg/dL (2.6-4.7); Potassium 4.9 mmol/L (3.5-5.1); Total Protein 7.1 g/dL (6.4-8.2); Triglycerides 24 mg/dL (<=150); Uric Acid 5.7 mg/dL (3.5-7.2); VLDL CHOLESTEROL 4.8 mg/dL
[2023-07-08 07:48] LABS: Estimated Average Glucose 154 mg/dL
[2023-07-08 08:21] LABS: Sodium 124 mmol/L (136-145)
[2023-07-10 14:09] LABS: BKV DNA, Quant PCR, Plasma Negative (Negative)
[2023-07-11 11:12] LABS: Tacrolimus (FK506), Blood 4.1 ng/mL (2.0-20.0)
[2023-07-12 10:11] LABS: Free Testosterone(Direct) 6.1 pg/mL (6.6-18.1); Testosterone 424 ng/dL (264-916)
== END 2023-07-08 07:03 | disposition home or self-care (01) ==
LOC: LAB 07:03
PROVIDERS: PCP Family Medicine
DX: R73.02 Impaired glucose tolerance (oral) (principal); Z94.0 Kidney transplant status
CPT/HCPCS: 36415; 80053; 80061; 80197; 82248; 83036; 83735; 84100; 84402; 84403; 84550; 85025; 87799

== ENCOUNTER 2023-07-11 07:04 | Outpatient (OUT) | payer MEDICARE, OTHER, SELFPAY ==
--- OUTSIDE RECORDS SUMMARY | 2023-07-11 07:10 | XMS_ITS | CCD ---
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 Name Role Phone Tj Wells Unavailable MD [...] NADERER, DR JERICHO Floyd Primary Care Unavailable METLAKATLA, DR MERRITT Consulting Unavailable METLAKATLA, DR MERRITT Attending Unavailable METLAKATLA, DR MERRITT Admitting Unavailable NADERER, DR FERGUSON A Primary Care Unavailable MISC, DR ALVAREZ Attending Unavailable MISC, DR ALVAREZ Admitting Unavailable NADERER, DR JERICHO Floyd Primary Care Unavailable MISC, DR ALVAREZ Consulting Unavailable METLAKATLA, DR MERRITT Consulting Unavailable METLAKATLA, DR MERRITT Attending Unavailable NADERER, DR JERICHO Floyd Primary Care Unavailable METLAKATLA, DR MERRITT Admitting Unavailable MISC, DR ALVAREZ [...] to adverse reactions to drug (disorder) 2 [facility] Repository Medications Current Medications Medication Drug Class(es) [...] 2 MCG IVP MWF DURING DIALYSIS PER [facility] (08/26/18) 5 ml sodium ferric gluconate complex 12.5 mg/ml injection (2 sources) Start: 07-08-2017 End: 03-05-2022 Sodium Ferric Gluconat-Sucrose (Ferrlecit) 62.5 mg/5 mL Solution Discontinued 125 MG IV Q14D July 08, 2017 1:00am March 05, 2022 7:07am RECEIVES FERRLECIT 125MG IVP EVERY OTHER FRIDAY (DOSE DUE 08/26/18 PER [facility]) Problems Active Problems Problem Classification [...] disease (2 sources) Atherosclerotic heart disease of [place] coronary artery without angina pectoris; Translations: [Atherosclerotic heart disease of [place] coronary artery without angina pectoris] Onset: 04-22-20 [...] 11-16-2021 Episodic Other aftercare (1 source) Other intermediate manager (current) drug therapy; Translations: [OTH 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 DRUG THERAPY] Onset: 03-10-2022 Episodic Other [...] Range Facility Orders Onlyon 06-11-2023 Orders Only [id number] Roger Suarez 1950 M Date Provider Department Center 06/11/2023 [facility] Family History Problem Relation Age of Onset Diabetes Mother Hypertension Mother Coronary artery disease Mother Other Mother Cystic kidney disease Mother Hypertension Father Skin cancer Father Cystic kidney disease Father Cystic kidney disease Sister Heart disease Brother ALS Brother Cystic kidney disease Brother Family Status - Relation Status Age at Mother Father Sister Brother Normal [facility] BILIRUBIN, DIRECTon 05-19-19 24 Magnesium [Mass/Vol] 0.1 mg/dL Normal 0-0.2 [facility] Comment on above: Performed By: #### L [id number] #### [facility] ([facility]) [address] [place] [address] CBC WITH AUTO DIFFERENTIALon 05-19-2023 Basophils (Bld) [#/Vol] 0.03 10*3/uL Normal 0.00-0.20 [facility] Comment on above: Performed By: #### L [id number] #### [facility] (BEAKER) [address] [place] [address] Basophils/100 WBC (Bld) 0.4 % Normal 0.0-1.0 [facility] Comment on above: Performed By: #### L [id number] #### [facility] ([facility]) [address] [place] [address] Eosinophils (Bld) [#/Vol] 0.18 10*3/uL Normal 0.00-0.50 [facility] Comment on above: Performed By: #### L [id number] #### [facility] ([facility]) [address] [place] [address] Eosinophils/100 WBC (Bld) 2.7 % Normal 0.0-6.0 [facility] Comment on above: Performed By: #### L [id number] #### [facility] ([facility]) [address] [place] [address] Erythrocyte distribution width (RBC) [Ratio] 13.7 % Normal 11.5-15.0 [facility] Comment on above: Performed By: #### L [id number] #### [facility] ([facility]) [address] [place] [address] ERYTHROCYTE MEAN CORPUSCULAR HEMOGLOBIN CONCENTRATION (G/DL) BY AUTOMATED 32.9 g/dL Normal 32.0-35.0 [facility] Comment on above: Performed By: #### L [id number] #### [facility] ([facility]) [address] [place] [address] Hematocrit (Bld) [Volume fraction] 34.0 % Low 39.0-55.0 [facility] Comment on above: Performed By: #### L [id number] #### [facility] ([facility]) [address] [place] [address] Hemoglobin (Bld) [Mass/Vol] 11.2 g/dL Low 13.0-17.0 [facility] Comment on above: Performed By: #### L [id number] #### [facility] ([facility]) [address] [place] [address] Immature granulocytes (Bld) [#/Vol] 0.02 10*3/uL Normal 0.00-0.20 [facility] Comment on above: Performed By: #### L [id number] #### [facility] ([facility]) [address] [place] [address] Immature granulocytes/100 WBC (Bld) 0.3 % Normal 0.0-1.0 [facility] Comment on above: Performed By: #### L [id number] #### [facility] ([facility]) [address] [place] [address] Lymphocytes (Bld) [#/Vol] 0.80 10*3/uL Low 1.20-4.00 [facility] Comment on above: Performed By: #### L [id number] #### [facility] (BEAKER) [address] [place] [address] Lymphocytes/100 WBC (Bld) 11.9 % Low 20.0-45.0 [facility] Comment on above: Performed By: #### L [id number] #### [facility] ([facility]) [address] [place] [address] MCH (RBC) [Entitic mass] 29.4 pg Normal 27.0-33.0 [facility] Comment on above: Performed By: #### L [id number] #### [facility] ([facility]) [address] [place] [address] MCV (RBC) [Entitic vol] 89.2 fL Normal 82.0-98.0 [facility] Comment on above: Performed By: #### L [id number] #### [facility] ([facility]) [address] [place] [address] Monocytes (Bld) [#/Vol] 0.54 10*3/uL Normal 0.10-1.00 [facility] Comment on above: Performed By: #### L [id number] #### [facility] ([facility]) [address] [place] [address] Monocytes/100 WBC (Bld) 8.0 % Normal 5.0-12.0 [facility] Comment on above: Performed By: #### L [id number] #### [facility] ([facility]) [address] [place] [address] Neutrophils (Bld) [#/Vol] 5.14 10*3/uL Normal 1.60-7.60 [facility] Comment on above: Performed By: #### L [id number] #### [facility] ([facility]) [address] [place] [address] Neutrophils/100 WBC (Bld) 76.7 % High 40.0-72.0 [facility] Comment on above: Performed By: #### L [id number] #### [facility] ([facility]) [address] [place] [address] NRBC (PER 100 WBCS) BY AUTOMATED COUNT 0.0 % Normal 0 [facility] Comment on above: Performed By: #### L [id number] #### [facility] ([facility]) [address] [place] [address] PLATELETS (10*3/UL) IN BLOOD AUTOMATED COUNT 271 10*3/uL Normal 150-400 [facility] Comment on above: Performed By: #### L [id number] #### [facility] ([facility]) [address] [place] [address] RBC (Bld) [#/Vol] 3.81 10*6/uL Low 4.20-5.70 [facility] Comment on above: Performed By: #### L [id number] #### [facility] ([facility]) [address] [place] [address] WBC (Bld) [#/Vol] 6.71 10*3/uL Normal 4.00-10.60 [facility] Comment on above: Performed By: #### L [id number] #### [facility] ([facility]) [address] [place] [address] COMPREHENSIVE METABOLIC PANE Claudio 05-19-2023 Albumin [Mass/Vol] 4.5 g/dL Normal 3.5-5.7 [facility] Comment on above: Performed By: #### L [id number] #### [facility] ([facility]) [address] [place] [address] ALP [Catalytic activity/Vol] 85 U/L Normal 34-104 [facility] Comment on above: Performed By: #### L [id number] #### [facility] ([facility]) [address] [place] [address] ALT [Catalytic activity/Vol] 10 U/L Normal 7-52 [facility] Comment on above: Performed By: #### L [id number] #### [facility] ([facility]) [address] [place] [address] Anion gap [Moles/Vol] 15 mmol/L Normal 7-20 [facility] Comment on above: Performed By: #### L [id number] #### [facility] ([facility]) [address] [place] [address] AST [Catalytic activity/Vol] 13 U/L Normal 13-39 [facility] Comment on above: Performed By: #### L [id number] #### [facility] ([facility]) [address] [place] [address] Bilirubin [Mass/Vol] 0.5 mg/dL Normal 0.3-1.0 [facility] Comment on above: Performed By: #### L [id number] #### [facility] ([facility]) [address] [place] [address] Calcium [Mass/Vol] 9.1 mg/dL Normal 8.6-10.3 [facility] Comment on above: Performed By: #### L [id number] #### [facility] ([facility]) [address] [place] [address] Chloride [Moles/Vol] 99 mmol/L Normal 98-107 [facility] Comment on above: Performed By: #### L [id number] #### [facility] ([facility]) [address] [place] [address] CO2 [Moles/Vol] 22 mmol/L Normal 21-31 [facility] Comment on above: Performed By: #### L [id number] #### [facility] ([facility]) [address] [place] [address] Creatinine [Mass/Vol] 0.85 mg/dL Normal 0.70-1.30 [facility] Comment on above: Performed By: #### L [id number] #### [facility] ([facility]) [address] [place] [address] GLOMERULAR FILTRATION RATE ML/MIN/1.73 SQ M.PREDICTED 92.9 mL/min/1.73m*2 Normal >60.0 [facility] Comment on above: Result Comment: The [facility]???s estimated glomerular filtration rate (eGFR) will no [...] individuals. Performed By: #### L [id number] #### [facility] ([facility]) [address] [place] [address] Glucose [Mass/Vol] 107 mg/dL High 70-100 [facility] Comment on above: Performed By: #### L [id number] #### [facility] ([facility]) [address] [place] [address] Potassium [Moles/Vol] 4.9 mmol/L Normal 3.5-5.1 [facility] Comment on above: Performed By: #### L [id number] #### [facility] ([facility]) [address] [place] [address] Protein [Mass/Vol] 6.7 g/dL Normal 6.0-8.3 [facility] Comment on above: Performed By: #### L [id number] #### [facility] ([facility]) [address] [place] [address] Sodium [Moles/Vol] 131 mmol/L Low 136-145 [facility] Comment on above: Performed By: #### L [id number] #### [facility] ([facility]) [address] [place] [address] Urea nitrogen [Mass/Vol] 15 mg/dL Normal 7-25 [facility] Comment on above: Performed By: #### L [id number] #### [facility] ([facility]) [address] [place] [address] UREA NITROGEN/CREATININE (MASS RATIO) IN SER/PLAS 17.6 Normal [facility] Comment on above: Performed By: #### L [id number] #### [facility] ([facility]) [address] [place] [address] Follow-Upon 05-19-2023 Follow-Up [id number] ErickRoger Tyson 1950 M Date Provider Department [...] at Mother Father Sister Brother Level of Service:47853 AL OFFICE/OUTPATIENT ESTABLISHED MOD MDM 30 MIN Reason for Visit and Comments: Kidney Follow-up [[id number]] - No concerns Normal [facility] LIPID PANELon 05-19-2023 CHOL/HDL 1.9 mg/dL Normal [facility] Comment on above: Performed By: #### L [id number] ####[facility] ([facility]AKER)[address] [place] [address] Cholesterol [Mass/Vol] 88 mg/dL Low 120-200 [facility] Comment on above: Performed By: #### L [id number] ####[facility] (BEAKER)[address] [place] [address] Magnesium [Mass/Vol] 53 mg/dL Normal 40-149 [facility] Comment on above: Result Comment: TRIG LYCERIDE REFERENCE RANGE: 20 YEARS AND OLDER CARDIOVASCULAR RISK LESS THAN 150 mg/dL LOW RISK 150 TO 199 mg/dL BORDERLINE RISK 200 mg/dL AND GREATER HIGH RISK Performed By: #### L [id number] ####[facility] (BEAKER)[address] [place] [address] Magnesium [Mass/Vol] 30 mg/dL Normal 0-160 [facility] Comment on above: Performed By: #### L [id number] ####[facility] (BEAKER)[address] [place] [address] Magnesium [Mass/Vol] 47 mg/dL Normal 23-[address] [facility] Comment on above: Performed By: #### L [id number] ####[facility] ([facility]AKER)[address] [place] [address] NON HDL CHOL. (LDL+VLDL) 41 Normal [facility] Comment on above: Performed By: #### L [id number] ####[facility] (BEAKER)[address] [place] [address] TOTAL VLDL-C 11 mg/dL Normal 0-40 [facility] Comment on above: Performed By: #### L [id number] ####[facility] (BEAKER)[address] [facility] [place] [address] Labon 05-19-2023 Lab [id number] Roger Suarez 1950 M Date Provider Department Center 05/19/[id number] DRAW STATION KXT Draw [facility] Family History Problem Relation Age of Onset Diabetes Mother Hypertension Mother Coronary artery disease Mother Other Mother Cystic kidney disease Mother Hypertension Father Skin cancer Father Cystic kidney disease Father Cystic kidney disease Sister Heart disease Brother ALS Brother Cystic kidney disease Brother Family Status - Relation Status Age at Mother Father Sister Brother Normal [facility] MAGNESIUMon 05-19-2023 Magnesium [Mass/Vol] 1.3 mg/dL Low 1.9-2.[address] [facility] Comment on above: Performed By: #### L [id number] #### [facility] ([facility]) [address] [place] [address] Orders Onlyon 05-19-2023 Orders Only [id number] Roger Suarez 1950 M Date Provider Department [...] Age at Mother Father Sister Brother Normal [facility] PHOSPHORUSon 05-19-2023 Magnesium [Mass/Vol] 4.5 mg/dL Normal 2.5-5.0 [facility] Comment on above: Performed By: #### L [id number] #### [facility] (BEAKER) [address] [place] [address] TACROLIMUS LEVELon Tacrolimus (Bld) [Mass/Vol] 6.0 ng/mL Normal 5.0-20.0 [facility] Comment on above: Result Comment: The [employer] Tacrolimus assay is a delayed one-step immunoassay for the quantitative determination of tacrolimus in human whole blood using the chemiluminescent microparticle immunoassay (CMIA) technology with flexible assay protocols, referred to as Chemiflex. Performed By: #### L [id number] #### [facility] ([facility]) [address] [place] [address] TESTOSTERONE, FREE AND TOTAL , AND SHBGon 05-19-2023 SEX HORMONE BINDING GLOBULIN (NMOL/L) IN SER/PLAS 61 nmol/L Normal 11-80 [facility] Comment on above: Performed By: #### L [id number] #### [facility] ([facility]) [address] [place] [address] TESTOSTERONE (NG/DL) IN SER/PLAS 440 ng/dL Normal 220-1000 [facility] Comment on above: Performed By: #### L [id number] #### [facility] ([facility]) [address] [place] [address] TESTOSTERONE FREE (NG/ML) IN SER/PLAS 59.5 pg/mL Normal 47-244 [facility] Comment on above: Result Comment: The concentration of free testosterone is derived from a mathematical expression based on the constant for the binding of testosterone to albumin and/or sex hormone binding globulin. Test Performed by [employer] [address] [place] [id number] - Released 05/19/2023 15:01 Performed By: #### L [id number] #### [facility] ([facility]) [address] [place] [address] URIC ACIDon 05-19-2023 Magnesium [Mass/Vol] 6.2 mg/dL Normal 4.4-7.6 [facility] Comment on above: Performed By: #### L [id number] #### [facility] ([facility]) [address] [place] [address] Documentationon 05-14-2023 Documentation [id number] Roger Suarez 1950 Date Provider Department Center [...] Status Age at Mother Father Sister Brother [facility] 30on 04-30-2023 30 Daily Case Managemen t Update Multidisciplinary rounds have been completed. 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 New Diabetic Supply Scripts have been faxed to his pharmacy in [place], [place]. Diet: Dietary Orders (From admission, onward) Start Ordered 04/29/23 171 Special Kitchen Request Once Comments: Please send a salad with ham, roque, shredded cheddar cheese and onions with macanese dressing. Layered chocolate cake and a diet [...] Consult? Answer: New diagnosis DM2 04/30/23 1109 [facility] 30 Problem: Pain - Adul t [...] and maintained or improved Outcome: Progressing Normal [facility] BASIC METABOLIC PANELon 12-2 -2022 Anion gap [Moles/Vol] 12 mmol/L Normal 7-20 [facility] Comment on above: Performed By: #### L [id number] #### [facility] ([facility]) [address] [place] [place] [address] Calcium [Mass/Vol] 8.7 mg/dL Normal 8.6-10.3 [facility] Comment on above: Performed By: #### L [id number] #### [facility] ([facility]) [address] [place] [address] Chloride [Moles/Vol] 102 mmol/L Normal 98-107 [facility] Comment on above: Performed By: #### L [id number] #### [facility] ([facility]) [address] [place] [address] CO2 [Moles/Vol] 24 mmol/L Normal 21-31 [facility] Comment on above: Performed By: #### L [id number] #### [facility] ([facility]) [address] [place] [address] Creatinine [Mass/Vol] 0.80 mg/dL Normal 0.70-1.30 [facility] Comment on above: Performed By: #### L [id number] #### [facility] ([facility]) [address] [place] [address] GLOMERULAR FILTRATION RATE ML/MIN/1.73 SQ M.PREDICTED 94.6 mL/min/1.73m*2 Normal >60.0 [facility] Comment on above: Result Comment: [facility]???s estimated glomerular filtration rate (eGFR) will no [...] individuals. Performed By: #### L [id number] #### [facility] ([facility]) [address] [place] [address] Glucose [Mass/Vol] 160 mg/dL High 70-100 [facility] Comment on above: Performed By: #### L [id number] #### [facility] ([facility]) [address] [place] [address] Potassium [Moles/Vol] 4.2 mmol/L Normal 3.5-5.1 [facility] Comment on above: Performed By: #### L [id number] #### [facility] ([facility]) [address] [place] [address] Sodium [Moles/Vol] 134 mmol/L Low 136-145 [facility] Comment on above: Performed By: #### L [id number] #### [facility] ([facility]) [address] [place] [address] Urea nitrogen [Mass/Vol] 14 mg/dL Normal 7-25 [facility] Comment on above: Performed By: #### L [id number] #### [facility] ([facility]) [address] [place] [address] UREA NITROGEN/CREATININE (MASS RATIO) IN SER/PLAS 17.5 Normal [facility] Comment on above: Performed By: #### L [id number] #### [facility] ([facility]) [address] [place] [address] CBCon 04-30-2023 Erythrocyte distribution width (RBC) [Ratio] 13.0 % Normal 11.5-15.0 [facility] Comment on above: Performed By: #### L [id number] ####[facility] ([facility])[address] [place] [address] ERYTHROCYTE MEAN CORPUSCULAR HEMOGLOBIN CONCENTRATION (G/DL) BY AUTOMATED 33.9 g/dL Normal 32.0-35.0 [facility] Comment on above: Performed By: #### L [id number] ####[facility] ([facility])[address] [place] [address] Hematocrit (Bld) [Volume fraction] 28.0 % Low 39.0-55.0 [facility] Comment on above: Performed By: #### L [id number] ####[facility] ([facility])[address] [place], [place] [address] Hemoglobin (Bld) [Mass/Vol] 9.5 g/dL Low 13.0-17.0 [facility] Comment on above: Performed By: #### L [id number] ####[facility] ([facility])[address] [place] [address] MCH (RBC) [Entitic mass] 29.3 pg Normal 27.0-33.0 [facility] Comment on above: Performed By: #### L [id number] ####[facility] ([facility])[address] [place] [address] MCV (RBC) [Entitic vol] 86.4 fL Normal 82.0-98.0 [facility] Comment on above: Performed By: #### L [id number] ####[facility] ([facility])[address] [place] [address] PLATELETS (10*3/UL) IN BLOOD AUTOMATED COUNT 232 10*3/uL Normal 150-400 [facility] Comment on above: Performed By: #### L [id number] ####[facility] ([facility])[address] [place] [address] RBC (Bld) [#/Vol] 3.24 10*6/uL Low 4.20-5.70 [facility] Comment on above: Performed By: #### L [id number] ####[facility] ([facility])[address] [place] [address] WBC (Bld) [#/Vol] 5.11 10*3/uL Normal 4.00-10.60 [facility] Comment on above: Performed By: #### L [id number] ####[facility] ([facility])[address] [place] [address] MAGNESIUMon 04-30-2023 Magnesium [Mass/Vol] 1.2 mg/dL Low 1.9-2.7 [facility] Comment on above: Performed By: #### L [id number] #### [facility] ([facility]) [address] [place] [address] PHOSPHORUSon 04-30-2023 Magnesium [Mass/Vol] 3.3 mg/dL Normal 2.5-5.0 [facility] Comment on above: Performed By: #### L AB52 #### [facility] ([facility]) [address] [place] [address] POCT GLUCOSE METER UNSOLICIT ED RESULTSon 04-30-2023 Glucose [Mass/Vol] 251 mg/dL High 70-105 [facility] Comment on above: Order Comment: Waive d Testing in the ED is performed under the ED CLIA certificate #[id number]. Result Comment: [email or web address] [email or web address] Performed By: #### L [id number] #### [facility] ([facility]) [address] [place] [address] Glucose [Mass/Vol] 146 mg/dL High 70-105 [facility] Comment on above: Order Comment: Waive d Testing in the ED is performed under the ED CLIA certificate #[id number]. Result Comment: [email or web address] [email or web address] Performed By: #### L [id number] #### [facility] ([facility]) [address] [place] [address] TACROLIMUS LEVELon Tacrolimus (Bld) [Mass/Vol] 6.1 ng/mL Normal 5.0-20.0 [facility] Comment on above: Result Comment: The [employer] Tacrolimus assay is a delayed one-step immunoassay for the quantitative determination of tacrolimus in human whole blood using the chemiluminescent microparticle immunoassay (CMIA) technology with flexible assay protocols, referred to as Chemiflex. Performed By: #### L [id number] #### [facility] (BEAKER) [address] [place] [address] 30on 04-29-2023 30 Daily Case Managemen t [...] roque, shredded cheddar cheese and onions with macanese dressing. Layered chocolate cake and a diet [...] Consultation Consultation and Management 04/27/23 2313 Normal [facility] BASIC METABOLIC PANELon 04-11 Anion gap [Moles/Vol] 13 mmol/L Normal 7-20 [facility] Comment on above: Performed By: #### L [id number] #### [facility] ([facility]) [address] [place] [address] Calcium [Mass/Vol] 8.7 mg/dL Normal 8.6-10.3 [facility] Comment on above: Performed By: #### L [id number] #### [facility] ([facility]) [address] [place] [address] Chloride [Moles/Vol] 103 mmol/L Normal 98-107 [facility] Comment on above: Performed By: #### L [id number] #### [facility] ([facility]) [address] [place] [address] CO2 [Moles/Vol] 22 mmol/L Normal 21-31 [facility] Comment on above: Performed By: #### L [id number] #### [facility] ([facility]) [address] [place] [address] Creatinine [Mass/Vol] 0.96 mg/dL Normal 0.70-1.30 [facility] Comment on above: Performed By: #### L [id number] #### [facility] ([facility]) [address] [place] [address] GLOMERULAR FILTRATION RATE ML/MIN/1.73 SQ M.PREDICTED 84.5 mL/min/1.73m*2 Normal >60.0 [facility] Comment on above: Result Comment: [facility]???s estimated glomerular filtration rate (eGFR) will no [...] individuals. Performed By: #### L [id number] #### [facility] ([facility]) [address] [place] [address] Glucose [Mass/Vol] 175 mg/dL High 70-100 [facility] Comment on above: Performed By: #### L [id number] #### [facility] ([facility]) [address] [place] [address] Potassium [Moles/Vol] 4.5 mmol/L Normal 3.5-5.1 [facility] Comment on above: Performed By: #### L [id number] #### [facility] ([facility]) [address] [place] [address] Sodium [Moles/Vol] 133 mmol/L Low 136-145 [facility] Comment on above: Performed By: #### L [id number] #### [facility] ([facility]) [address] [place] [address] Urea nitrogen [Mass/Vol] 29 mg/dL High 7-25 [facility] Comment on above: Performed By: #### L [id number] #### [facility] ([facility]) [address] [place] [address] UREA NITROGEN/CREATININE (MASS RATIO) IN SER/PLAS 30.2 Normal [facility] Comment on above: Performed By: #### L [id number] #### [facility] ([facility]) [address] [place] [address] Anion gap [Moles/Vol] 16 mmol/L Normal 7-20 [facility] Comment on above: Performed By: #### L [id number] #### [facility] ([facility]) [address] [place] [address] Calcium [Mass/Vol] 8.7 mg/dL Normal 8.6-10.3 [facility] Comment on above: Performed By: #### L [id number] #### [facility] ([facility]) [address] [place] [address] Chloride [Moles/Vol] 102 mmol/L Normal 98-107 [facility] Comment on above: Performed By: #### L [id number] #### [facility] ([facility]) [address] [place] [address] CO2 [Moles/Vol] 19 mmol/L Low 21-31 [facility] Comment on above: Performed By: #### L [id number] #### [facility] ([facility]) [address] [place] [address] Creatinine [Mass/Vol] 1.02 mg/dL Normal 0.70-1.30 [facility] Comment on above: Performed By: #### L [id number] #### [facility] ([facility]) [address] [place] [address] GLOMERULAR FILTRATION RATE ML/MIN/1.73 SQ M.PREDICTED 78.6 mL/min/1.73m*2 Normal >60.0 [facility] Comment on above: Result Comment: [facility]???s estimated glomerular filtration rate (eGFR) will no [...] individuals. Performed By: #### L [id number] #### [facility] ([facility]) [address] [place] [address] Glucose [Mass/Vol] 206 mg/dL High 70-100 [facility] Comment on above: Performed By: #### L [id number] #### [facility] ([facility]) [address] [place] [address] Potassium [Moles/Vol] 4.8 mmol/L Normal 3.5-5.1 [facility] Comment on above: Performed By: #### L [id number] #### [facility] ([facility]) [address] [place] [address] Sodium [Moles/Vol] 132 mmol/L Low 136-145 [facility] Comment on above: Performed By: #### L [id number] #### [facility] ([facility]) [address] [place] [address] Urea nitrogen [Mass/Vol] 31 mg/dL High 7-25 [facility] Comment on above: Performed By: #### L [id number] #### [facility] ([facility]) [address] [place] [address] UREA NITROGEN/CREATININE (MASS RATIO) IN SER/PLAS 30.4 Normal [facility] Comment on above: Performed By: #### L [id number] #### [facility] ([facility]) [address] [place] [address] POCT GLUCOSE METER UNSOLICIT ED RESULTSon 04-29-2023 Glucose [Mass/Vol] 151 mg/dL High 70-105 [facility] Comment on above: Order Comment: Waive d Testing in the ED is performed under the ED CLIA certificate #[id number]. Result Comment: [email or web address] dic Performed By: #### L [id number] #### [facility] ([facility]) [address] [place] [address] Glucose [Mass/Vol] 166 mg/dL High 70-105 [facility] Comment on above: Order Comment: Waive d Testing in the ED is performed under the ED CLIA certificate #[id number]. Result Comment: [email or web address] ate Performed By: #### L [id number] #### [facility] ([facility]) [address] [place] [address] Glucose [Mass/Vol] 147 mg/dL High 70-105 [facility] Comment on above: Order Comment: Waive d Testing in the ED is performed under the ED CLIA certificate #[id number]. Result Comment: [email or web address] Performed By: #### L [id number] #### [facility] ([facility]) [address] [place] [address] Glucose [Mass/Vol] 145 mg/dL High 70-105 [facility] Comment on above: Order Comment: Waive d Testing in the ED is performed under the ED CLIA certificate #[id number]. Result Comment: [email or web address] Performed By: #### L [id number] #### [facility] ([facility]) [address] [place] [address] TACROLIMUS LEVELon 3 Tacrolimus (Bld) [Mass/Vol] 8.6 ng/mL Normal 5.0-20.0 [facility] Comment on above: Result Comment: The [employer] Tacrolimus assay is a delayed one-step immunoassay for the quantitative determination of tacrolimus in human whole blood using the chemiluminescent microparticle immunoassay (CMIA) technology with flexible assay protocols, referred to as Chemiflex. Performed By: #### L [id number] #### [facility] ([facility]) [address] [place] [address] APTTon 04-28-2023 ACTIVATED PARTIAL THROMBOPLASTIN TIME IN PPP BY COAGULATION ASSAY 26.1 Seconds Normal 25.0-35.0 [facility] Comment on above: Result Comment: Clin ical significance of the APTT is questionable in the presence of heparin. Performed By: #### L [id number] #### [facility] ([facility]) [address] [place] [address] B-TYPE NATRIURETIC PEPTIDEon 04-28-2023 Natriuretic peptide B (Bld) [Mass/Vol] 98 pg/mL Normal 0-100 [facility] Comment on above: Performed By: #### L [id number] ####[facility] ([facility])[address] [facility] [place] [address] BASIC METABOLIC PANELon 04-11 Anion gap [Moles/Vol] 17 mmol/L Normal 7-20 [facility] Comment on above: Performed By: #### L [id number] #### [facility] ([facility]) [address] [place] [address] Calcium [Mass/Vol] 8.6 mg/dL Normal 8.6-10.3 [facility] Comment on above: Performed By: #### L [id number] #### [facility] ([facility]) [address] [place] [address] Chloride [Moles/Vol] 102 mmol/L Normal 98-107 [facility] Comment on above: Performed By: #### L [id number] #### [facility] ([facility]) [address] [place] [address] CO2 [Moles/Vol] 20 mmol/L Low 21-31 [facility] Comment on above: Performed By: #### L [id number] #### [facility] ([facility]) [address] [place] [address] Creatinine [Mass/Vol] 1.07 mg/dL Normal 0.70-1.30 [facility] Comment on above: Performed By: #### L [id number] #### [facility] ([facility]) [address] [place] [address] GLOMERULAR FILTRATION RATE ML/MIN/1.73 SQ M.PREDICTED 74.2 mL/min/1.73m*2 Normal >60.0 [facility] Comment on above: Result Comment: [facility]???s estimated glomerular filtration rate (eGFR) will no [...] individuals. Performed By: #### L [id number] #### [facility] ([facility]) [address] [place] [address] Glucose [Mass/Vol] 144 mg/dL High 70-100 [facility] Comment on above: Performed By: #### L [id number] #### [facility] ([facility]) [address] [place] [address] Potassium [Moles/Vol] 4.7 mmol/L Normal 3.5-5.1 [facility] Comment on above: Performed By: #### L [id number] #### [facility] ([facility]) [address] [place] [address] Sodium [Moles/Vol] 134 mmol/L Low 136-145 [facility] Comment on above: Performed By: #### L [id number] #### [facility] ([facility]) [address] [place] [address] Urea nitrogen [Mass/Vol] 34 mg/dL High 7-25 [facility] Comment on above: Performed By: #### L [id number] #### [facility] ([facility]) [address] [place] [address] UREA NITROGEN/CREATININE (MASS RATIO) IN SER/PLAS 31.8 Normal [facility] Comment on above: Performed By: #### L [id number] #### [facility] ([facility]) [address] [place] [address] Anion gap [Moles/Vol] 17 mmol/L Normal 7-20 [facility] Comment on above: Performed By: #### L [id number] #### [facility] ([facility]) [address] [place] [address] Calcium [Mass/Vol] 8.7 mg/dL Normal 8.6-10.3 [facility] Comment on above: Performed By: #### L [id number] #### [facility] ([facility]) [address] [place] [address] Chloride [Moles/Vol] 100 mmol/L Normal 98-107 [facility] Comment on above: Performed By: #### L [id number] #### [facility] ([facility]) [address] [place] [address] CO2 [Moles/Vol] 19 mmol/L Low 21-31 [facility] Comment on above: Performed By: #### L [id number] #### [facility] ([facility]) [address] [place] [address] Creatinine [Mass/Vol] 1.20 mg/dL Normal 0.70-1.30 [facility] Comment on above: Performed By: #### L [id number] #### [facility] ([facility]) [address] [place] [address] GLOMERULAR FILTRATION RATE ML/MIN/1.73 SQ M.PREDICTED 64.7 mL/min/1.73m*2 Normal >60.0 [facility] Comment on above: Result Comment: [facility]???s estimated glomerular filtration rate (eGFR) will no [...] individuals. Performed By: #### L [id number] #### [facility] ([facility]) [address] [place] [address] Glucose [Mass/Vol] 237 mg/dL High 70-100 [facility] Comment on above: Performed By: #### L [id number] #### [facility] ([facility]) [address] [place] [address] Potassium [Moles/Vol] 4.4 mmol/L Normal 3.5-5.1 [facility] Comment on above: Performed By: #### L [id number] #### [facility] ([facility]) [address] [place] [address] Sodium [Moles/Vol] 132 mmol/L Low 136-145 [facility] Comment on above: Performed By: #### L [id number] #### [facility] ([facility]) [address] [place] [address] Urea nitrogen [Mass/Vol] 40 mg/dL High 7-25 [facility] Comment on above: Performed By: #### L [id number] #### [facility] ([facility]) [address] [place] [address] UREA NITROGEN/CREATININE (MASS RATIO) IN SER/PLAS 33.3 Normal [facility] Comment on above: Performed By: #### L [id number] #### [facility] ([facility]) [address] [place] [address] Anion gap [Moles/Vol] 20 mmol/L Normal 7-20 [facility] Comment on above: Performed By: #### L [id number] #### [facility] ([facility]) [address] [place] [address] Calcium [Mass/Vol] 8.6 mg/dL Normal 8.6-10.3 [facility] Comment on above: Performed By: #### L [id number] #### [facility] ([facility]) [address] [place] [address] Chloride [Moles/Vol] 101 mmol/L Normal 98-107 [facility] Comment on above: Performed By: #### L [id number] #### [facility] ([facility]) [address] [place] [address] CO2 [Moles/Vol] 14 mmol/L Invalid Interpretation Code 21- [facility] Comment on above: Performed By: #### L [id number] #### [facility] ([facility]) [address] [place] [address] Creatinine [Mass/Vol] 1.32 mg/dL High 0.70-1.30 [facility] Comment on above: Performed By: #### L [id number] #### [facility] ([facility]) [address] [place] [address] GLOMERULAR FILTRATION RATE ML/MIN/1.73 SQ M.PREDICTED 57.7 mL/min/1.73m*2 Low >60.0 [facility] Comment on above: Result Comment: [facility]???s estimated glomerular filtration rate (eGFR) will no [...] individuals. Performed By: #### L [id number] #### [facility] ([facility]) [address] [place] [address] Glucose [Mass/Vol] 332 mg/dL High 70-100 [facility] Comment on above: Performed By: #### L [id number] #### [facility] ([facility]) [address] [place] [address] Potassium [Moles/Vol] 4.6 mmol/L Normal 3.5-5.1 [facility] Comment on above: Performed By: #### L [id number] #### [facility] ([facility]) [address] [place] [address] Sodium [Moles/Vol] 130 mmol/L Low 136-145 [facility] Comment on above: Performed By: #### L [id number] #### [facility] ([facility]) [address] [place] [address] Urea nitrogen [Mass/Vol] 43 mg/dL High 7-25 [facility] Comment on above: Performed By: #### L [id number] #### [facility] ([facility]) [address] [place] [address] UREA NITROGEN/CREATININE (MASS RATIO) IN SER/PLAS 32.6 Normal [facility] Comment on above: Performed By: #### L [id number] #### [facility] ([facility]) [address] [place] [address] Anion gap [Moles/Vol] 22 mmol/L High 7-20 [facility] Comment on above: Performed By: #### L [id number] #### [facility] ([facility]) [address] [place] [address] Calcium [Mass/Vol] 8.9 mg/dL Normal 8.6-10.3 [facility] Comment on above: Performed By: #### L [id number] #### [facility] ([facility]) [address] [place] [address] Chloride [Moles/Vol] 99 mmol/L Normal 98-107 [facility] Comment on above: Performed By: #### L [id number] #### [facility] ([facility]) [address] [place] [address] CO2 [Moles/Vol] 13 mmol/L Invalid Interpretation Code 21 [facility] Comment on above: Performed By: #### L [id number] #### [facility] ([facility]) [address] [place] [address] Creatinine [Mass/Vol] 1.33 mg/dL High 0.70-1.30 [facility] Comment on above: Performed By: #### L [id number] #### [facility] ([facility]) [address] [place] [address] GLOMERULAR FILTRATION RATE ML/MIN/1.73 SQ M.PREDICTED 57.1 mL/min/1.73m*2 Low >60.0 [facility] Comment on above: Result Comment: [facility]???s estimated glomerular filtration rate (eGFR) will no [...] individuals. Performed By: #### L [id number] #### [facility] ([facility]) [address] [place] [address] Glucose [Mass/Vol] 324 mg/dL High 70-100 [facility] Comment on above: Performed By: #### L [id number] #### [facility] ([facility]) [address] [place] [address] Potassium [Moles/Vol] 5.7 mmol/L High 3.5-5.1 [facility] Comment on above: Performed By: #### L [id number] #### [facility] ([facility]) [address] [place] [address] Sodium [Moles/Vol] 128 mmol/L Low 136-145 [facility] Comment on above: Performed By: #### L [id number] #### [facility] ([facility]) [address] [place] [address] Urea nitrogen [Mass/Vol] 45 mg/dL High 7-25 [facility] Comment on above: Performed By: #### L [id number] #### [facility] ([facility]) [address] [place] [address] UREA NITROGEN/CREATININE (MASS RATIO) IN SER/PLAS 33.8 Normal [facility] Comment on above: Performed By: #### L [id number] #### [facility] ([facility]) [address] [place] [address] Anion gap [Moles/Vol] 23 mmol/L High 7-20 [facility] Comment on above: Performed By: #### L [id number] ####[facility] ([facility])[address] [place] [address] Calcium [Mass/Vol] 8.8 mg/dL Normal 8.6-10.3 [facility] Comment on above: Performed By: #### L [id number] ####[facility] ([facility])[address] [place] [address] Chloride [Moles/Vol] 99 mmol/L Normal 98-107 [facility] Comment on above: Performed By: #### L [id number] ####[facility] ([facility])[address] [place] [address] CO2 [Moles/Vol] 13 mmol/L Invalid Interpretation Code [facility] Comment on above: Performed By: #### L [id number] ####[facility] ([facility])[address] [place] [address] Creatinine [Mass/Vol] 1.31 mg/dL High 0.70-1.30 [facility] Comment on above: Performed By: #### L [id number] ####[facility] ([facility])[address] [place] [address] GLOMERULAR FILTRATION RATE ML/MIN/1.73 SQ M.PREDICTED 58.2 mL/min/1.73m*2 Low >60.0 [facility] Comment on above: Result Comment: [facility]???s estimated glomerular filtration rate (eGFR) will no [...] of individuals. Performed By: #### L [id number] ####[facility] ([facility])[address] [place] [address] Glucose [Mass/Vol] 264 mg/dL High 70-100 [facility] Comment on above: Performed By: #### L [id number] ####[facility] ([facility])[address] [place] [address] Potassium [Moles/Vol] 5.7 mmol/L High 3.5-5.1 [facility] Comment on above: Performed By: #### L [id number] ####[facility] ([facility])[address] [place] [address] Sodium [Moles/Vol] 129 mmol/L Low 136-145 [facility] Comment on above: Performed By: #### L [id number] ####[facility] ([facility])[address] [place] [address] Urea nitrogen [Mass/Vol] 44 mg/dL High 7-25 [facility] Comment on above: Performed By: #### L [id number] ####[facility] ([facility])[address] [place] [address] UREA NITROGEN/CREATININE (MASS RATIO) IN SER/PLAS 33.6 Normal [facility] Comment on above: Performed By: #### L [id number] ####[facility] ([facility])[address] [place] [address] Anion gap [Moles/Vol] 15 mmol/L Normal 7-20 [facility] Comment on above: Performed By: #### L [id number] ####[facility] ([facility])[address] [place] [address] Performed By: #### L [id number] #### [facility] ([facility]) [address] [place] [address] Calcium [Mass/Vol] 8.6 mg/dL Normal 8.6-10.3 [facility] Comment on above: Performed By: #### L [id number] ####[facility] ([facility])[address] [place] [address] Performed By: #### L [id number] #### [facility] ([facility]) [address] [place] [address] Chloride [Moles/Vol] 101 mmol/L Normal 98-107 [facility] Comment on above: Performed By: #### L [id number] ####[facility] ([facility])[address] [place] [address] Performed By: #### L [id number] #### [facility] ([facility]) [address] [place] [address] CO2 [Moles/Vol] 18 mmol/L Low 21-31 [facility] Comment on above: Performed By: #### L [id number] ####[facility] ([facility])[address] [place] [address] Performed By: #### L [id number] #### [facility] ([facility]) [address] [place] [address] Creatinine [Mass/Vol] 1.36 mg/dL High 0.70-1.30 [facility] Comment on above: Performed By: #### L [id number] ####[facility] ([facility])[address] [place] [address] Performed By: #### L [id number] #### [facility] ([facility]) [address] [place] [address] GLOMERULAR FILTRATION RATE ML/MIN/1.73 SQ M.PREDICTED 55.6 mL/min/1.73m*2 Low >60.0 [facility] Comment on above: Result Comment: [facility]???s estimated glomerular filtration rate (eGFR) will no [...] of individuals. Performed By: #### L [id number] ####[facility] ([facility])[address] [place] [address] Performed By: #### L [id number] #### [facility] ([facility]) [address] [place] [address] Glucose [Mass/Vol] 149 mg/dL High 70-100 [facility] Comment on above: Performed By: #### L [id number] ####[facility] ([facility])[address] [facility] [place] [address] Performed By: #### L [id number] #### [facility] ([facility]) [address] [place] [address] Potassium [Moles/Vol] 4.8 mmol/L Normal 3.5-5.1 [facility] Comment on above: Performed By: #### L [id number] ####[facility] ([facility])[address] [facility] [place] [address] Performed By: #### L [id number] #### [facility] ([facility]) [address] [place] [address] Sodium [Moles/Vol] 129 mmol/L Low 136-145 [facility] Comment on above: Performed By: #### L [id number] ####[facility] ([facility])[address] [place] [address] Performed By: #### L [id number] #### [facility] ([facility]) [address] [place] [address] Urea nitrogen [Mass/Vol] 45 mg/dL High 7-25 [facility] Comment on above: Performed By: #### L [id number] ####[facility] ([facility])[address] [place] [address] Performed By: #### L [id number] #### [facility] ([facility]) [address] [place] [address] UREA NITROGEN/CREATININE (MASS RATIO) IN SER/PLAS 33.1 Normal [facility] Comment on above: Performed By: #### L [id number] ####[facility] ([facility])[address] [place] [address] Performed By: #### L [id number] #### [facility] ([facility]) [address] [place] [address] BETA HYDROXYBUTYRATEon 04-28 BETA HYDROXYBUTYRATE (MMOL/L) IN SER/PLAS 6.22 mmol/L High 0.02-0.27 [facility] Comment on above: Performed By: #### L [id number] #### [facility] ([facility]) [address] [place] [address] BLOOD CULTUREon 04-28-2023 Bacteria identified Cx Nom (Bld) No growth at 5 days Normal [facility] Comment on above: Performed By: #### L [id number] ####[facility] ([facility])[address] [place] [id number] Bacteria identified Cx Nom (Bld) No growth at 5 days Normal [facility] Comment on above: Order Comment: From a different site than #1. Performed By: #### L [id number] #### [facility] ([facility]) [address] [place] [address] Bacteria identified Cx Nom (Bld) No growth at 5 days Normal [facility] Comment on above: Order Comment: From a different site than #1. Performed By: #### L [id number] #### [facility] ([facility]) [address] [place] [address] CBC WITH AUTO DIFFERENTIALon 04-28-2023 Basophils (Bld) [#/Vol] 0.04 10*3/uL Normal 0.00-0.20 [facility] Comment on above: Performed By: #### L [id number] #### [facility] ([facility]) [address] [place] [address] Basophils/100 WBC (Bld) 0.4 % Normal 0.0-1.0 [facility] Comment on above: Performed By: #### L [id number] #### [facility] ([facility]) [address] [place] [address] Eosinophils (Bld) [#/Vol] 0.09 10*3/uL Normal 0.00-0.50 [facility] Comment on above: Performed By: #### L [id number] #### [facility] ([facility]) [address] [place] [address] Eosinophils/100 WBC (Bld) 1.0 % Normal 0.0-6.0 [facility] Comment on above: Performed By: #### L [id number] #### [facility] ([facility]) [address] [place] [address] Erythrocyte distribution width (RBC) [Ratio] 13.1 % Normal 11.5-15.0 [facility] Comment on above: Performed By: #### L [id number] #### [facility] ([facility]) [address] [place] [address] ERYTHROCYTE MEAN CORPUSCULAR HEMOGLOBIN CONCENTRATION (G/DL) BY AUTOMATED 33.9 g/dL Normal 32.0-35.0 [facility] Comment on above: Performed By: #### L [id number] #### [facility] ([facility]) [address] [place] [address] Hematocrit (Bld) [Volume fraction] 32.7 % Low 39.0-55.0 [facility] Comment on above: Performed By: #### L [id number] #### [facility] ([facility]) [address] [place] [address] Hemoglobin (Bld) [Mass/Vol] 11.1 g/dL Low 13.0-17.0 [facility] Comment on above: Performed By: #### L [id number] #### [facility] ([facility]) [address] [place] [address] Immature granulocytes (Bld) [#/Vol] 0.15 10*3/uL Normal 0.00-0.20 [facility] Comment on above: Performed By: #### L [id number] #### [facility] ([facility]) [address] [place] [address] Immature granulocytes/100 WBC (Bld) 1.6 % High 0.0-1.0 [facility] Comment on above: Performed By: #### L [id number] #### [facility] ([facility]) [address] [place] [address] Lymphocytes (Bld) [#/Vol] 1.04 10*3/uL Low 1.20-4.00 [facility] Comment on above: Performed By: #### L [id number] #### [facility] ([facility]) [address] [place] [address] Lymphocytes/100 WBC (Bld) 11.3 % Low 20.0-45.0 [facility] Comment on above: Performed By: #### L [id number] #### [facility] ([facility]) [address] [place] [address] MCH (RBC) [Entitic mass] 29.3 pg Normal 27.0-33.0 [facility] Comment on above: Performed By: #### L [id number] #### [facility] ([facility]) [address] [place] [address] MCV (RBC) [Entitic vol] 86.3 fL Normal 82.0-98.0 [facility] Comment on above: Performed By: #### L [id number] #### [facility] ([facility]) [address] [place] [address] Monocytes (Bld) [#/Vol] 0.96 10*3/uL Normal 0.10-1.00 [facility] Comment on above: Performed By: #### L [id number] #### [facility] ([facility]) [address] [place] [address] Monocytes/100 WBC (Bld) 10.5 % Normal 5.0-12.0 [facility] Comment on above: Performed By: #### L [id number] #### [facility] ([facility]) [address] [place] [address] Neutrophils (Bld) [#/Vol] 6.90 10*3/uL Normal 1.60-7.60 [facility] Comment on above: Performed By: #### L [id number] #### [facility] ([facility]) [address] [place] [address] Neutrophils/100 WBC (Bld) 75.2 % High 40.0-72.0 [facility] Comment on above: Performed By: #### L [id number] #### [facility] ([facility]) [address] [place] [address] NRBC (PER 100 WBCS) BY AUTOMATED COUNT 0.0 % Normal 0 [facility] Comment on above: Performed By: #### L [id number] #### [facility] ([facility]) [address] [place] [address] PLATELETS (10*3/UL) IN BLOOD AUTOMATED COUNT 301 10*3/uL Normal 150-400 [facility] Comment on above: Performed By: #### L [id number] #### [facility] ([facility]) [address] [place] [address] RBC (Bld) [#/Vol] 3.79 10*6/uL Low 4.20-5.70 [facility] Comment on above: Performed By: #### L [id number] #### [facility] ([facility]) [address] [place] [address] WBC (Bld) [#/Vol] 9.18 10*3/uL Normal 4.00-10.60 [facility] Comment on above: Performed By: #### L [id number] #### [facility] ([facility]) [address] [place] [address] CMV DNA, QUALITATIVE, PCRon 04-28-2023 CYTOMEGALOVIRUS QUAL. PCR Not detected Normal [facility] Comment on above: Result Comment: NOT DETECTED - A negative result does not rule out the presence of PCR inhibitors in the patient specimen or assay specific nucleic acid in concentrations below the level of detection by the assay. INTERPRETIVE INFORMATION: Cytomegalovirus Detection by PCR This test was developed and its performance characteristics determined by [facility]. It has not been cleared or approved by the US Food and Drug Administration. This test was performed in a CLIA certified laboratory and is intended for clinical purposes. Performed By: [facility] [address] [place] [id number] Senior Functional Analyst: René Wick MD, PhD CLIA Number: [id number] Performed By: #### L [id number] #### [facility] ([facility]) [address] [place] [address] CYTOMEGALOVIRUS SOURCE Blood Normal [facility] Comment on above: Performed By: #### L [id number] #### [facility] ([facility]) [address] [place] [address] COMPREHENSIVE METABOLIC PANE Claudio 04-28-2023 Albumin [Mass/Vol] 3.8 g/dL Normal 3.5-5.7 [facility] Comment on above: Performed By: #### L [id number] #### [facility] ([facility]) [address] [place] [address] ALP [Catalytic activity/Vol] 100 U/L Normal 34-104 [facility] Comment on above: Performed By: #### L [id number] #### [facility] ([facility]) [address] [place] [address] ALT [Catalytic activity/Vol] 12 U/L Normal 7-52 [facility] Comment on above: Performed By: #### L [id number] #### [facility] ([facility]) [address] [place] [address] AST [Catalytic activity/Vol] 12 U/L Low 13-39 [facility] Comment on above: Performed By: #### L [id number] #### [facility] ([facility]) [address] [place] [address] Bilirubin [Mass/Vol] 0.4 mg/dL Normal 0.3-1.0 [facility] Comment on above: Performed By: #### L [id number] #### [facility] ([facility]) [address] [place] [address] Protein [Mass/Vol] 6.0 g/dL Normal 6.0-8.3 [facility] Comment on above: Performed By: #### L [id number] #### [facility] ([facility]) [address] [place] [address] CONSULTon 04-28-2023 CONSULT - Attestation signed by [...] Patient : Roger Suarez; 72 y.o. Location: [id number]- Attending: Esther Garduno MD Admit Date: 04/27/2023 Hospital Day: 1 Reason for Consult: ESRD s/p renal transplant with [facility]. History of Present Illness: HPI: Roger Suarez is a 72 y.o. male with PMHx ESRD d/t PKD s/p renal transplant 2019, HTN, HLD, CAD, PVD, COPD, pulmonary hypertension, HFrEF (EF 45%) and NIDDM2. Patient admitted on 04/27/2023 as a transfer from outside hospital in [place] for concerns of possible DKA, hyponatremia, and [...] nursing note reviewed. Exam conducted with a suture gauger present (Dr. Pan). Constitutional: General: He is [...] No ed (more content not included)... Normal [facility] CREATININE, URINE, RANDOMon 04-28-2023 Creatinine (U) [Mass/Vol] 100.0 mg/dL Normal 26-299 [facility] Comment on above: Performed By: #### L [id number] #### [facility] ([facility]) [address] [place] [address] HEMOGLOBIN A1Con 04-28-2023 Glucose [Mass/Vol] 372 mg/dL Normal [facility] Comment on above: Order Comment: DRAW Q 3 MONTHS MAY, August, November, FEBRUARY Performed By: #### L [id number] #### [facility] ([facility]) [address] [place] [address] HbA1c (Bld) [Mass fraction] 14.6 % High 4.0-6.0 [facility] Comment on above: Order Comment: DRAW Q 3 MONTHS MAY, August, November, FEBRUARY Performed By: #### L [id number] #### [facility] ([facility]) [address] [place] [address] LACTIC ACID WITH 4 HOUR REFL EXon 04-28-2023 LACTATE (MMOL/L) IN SER/PLAS 0.8 mmol/L Normal 0.5-2.2 [facility] Comment on above: Performed By: #### L [id number] #### [facility] ([facility]) [address] [place] [address] MAGNESIUMon 04-28-2023 Magnesium [Mass/Vol] 1.7 mg/dL Low 1.9-2.7 [facility] Comment on above: Performed By: #### L [id number] ####[facility] ([facility])[address] [facility] [place] [address] NURSNOTEon 04-28-[address] Nguyen ( nephrology) regarding placing powerglide if pt a candidate, ok with placement on right arm. Normal [facility] OSMOLALITYon 04-28-2023 OSMOLALITY MEASURED 310 mOsm/kg High 275-295 [facility] Comment on above: Result Comment: Test Performed by [facility] [address] [place] [address] - Released 04/28/2023 22:42 Performed By: #### L [id number] #### [facility] ([facility]) [address] [place] [address] OSMOLALITY, URINEon 04-28-20 23 OSMOLALITY, URINE 446 mOsm/kg Normal 80-1300 [facility] Comment on above: Result Comment: Test Performed by [facility] [address] [place] [address] - Released 04/29/2023 03:35 Performed By: #### L [id number] #### [facility] ([facility]) [address] [place] [address] PHOSPHORUSon 04-28-2023 Magnesium [Mass/Vol] 3.7 mg/dL Normal 2.5-5.0 [facility] Comment on above: Performed By: #### L [id number] ####[facility] ([facility])[address] [place] [address] POCT GLUCOSE METER UNSOLICIT ED RESULTSon 04-28-2023 Glucose [Mass/Vol] 141 mg/dL High 70-105 [facility] Comment on above: Order Comment: Waive d Testing in the ED is performed under the ED CLIA certificate #[id number]. Result Comment: ladarius al Performed By: #### L [id number] #### [facility] ([facility]) [address] [place] [address] Glucose [Mass/Vol] 99 mg/dL Normal 70-105 [facility] Comment on above: Order Comment: Waive d Testing in the ED is performed under the ED CLIA certificate #[id number]. Result Comment: besc obe Performed By: #### L [id number] #### [facility] ([facility]) [address] [place] [address] Glucose [Mass/Vol] 115 mg/dL High 70-105 [facility] Comment on above: Order Comment: Waive d Testing in the ED is performed under the ED CLIA certificate #[id number]. Result Comment: besc obe Performed By: #### L [id number] ####[facility] ([facility])[address] [place] [address] Glucose [Mass/Vol] 145 mg/dL High 70-105 [facility] Comment on above: Order Comment: Waive d Testing in the ED is performed under the ED CLIA certificate #[id number]. Result Comment: wwar rad Performed By: #### L [id number] ####[facility] ([facility])[address] [place] [address] Glucose [Mass/Vol] 165 mg/dL High 70-105 [facility] Comment on above: Order Comment: Waive d Testing in the ED is performed under the ED CLIA certificate #[id number]. Result Comment: besc obe Performed By: #### L [id number] #### [facility] ([facility]) [address] [place] [address] Glucose [Mass/Vol] 203 mg/dL High 70-105 [facility] Comment on above: Order Comment: DRAW Q 3 MONTHS MAY, August, November, FEBRUARY Result Comment: [email or web address] Performed By: #### L [id number] #### [facility] ([facility]) [address] [place] [address] Glucose [Mass/Vol] 247 mg/dL High 70-105 [facility] Comment on above: Order Comment: Waive d Testing in the ED is performed under the ED CLIA certificate #[id number]. Result Comment: wwar rad Performed By: #### L [id number] #### [facility] ([facility]) [address] [place] [address] Glucose [Mass/Vol] 315 mg/dL High 70-105 [facility] Comment on above: Order Comment: Waive d Testing in the ED is performed under the ED CLIA certificate #[id number]. Result Comment: wwar rad Performed By: #### L [id number] #### [facility] ([facility]) [address] [place] [address] Glucose [Mass/Vol] 356 mg/dL High 70-105 [facility] Comment on above: Order Comment: Waive d Testing in the ED is performed under the ED CLIA certificate #[id number]. Result Comment: [email or web address] rbo Performed By: #### L [id number] #### [facility] ([facility]) [address] [facility] [place] [address] Glucose [Mass/Vol] 312 mg/dL High 70-105 [facility] Comment on above: Order Comment: Waive d Testing in the ED is performed under the ED CLIA certificate #[id number]. Result Comment: wwar rad Performed By: #### L [id number] ####[facility] ([facility])[address] [place] [address] Glucose [Mass/Vol] 139 mg/dL High 70-105 [facility] Comment on above: Order Comment: Waive d Testing in the ED is performed under the ED CLIA certificate #[id number]. Result Comment: acle jordin Performed By: #### L [id number] #### [facility] ([facility]) [address] [place] [address] PROTEIN, URINE, RANDOMon Protein (U) [Mass/Vol] 47.2 mg/dL Normal [facility] Comment on above: Result Comment: Ther e are no established reference values for random urine specimens. Performed By: #### L [id number] ####[facility] ([facility])[address] [place] [address] PROTIME-INRon 04-28-2023 INR IN PPP BY COAGULATION ASSAY 1.13 High 0.90-1.10 [facility] Comment on above: Result Comment: ACCC P [...] 1995;[id number]. Performed By: #### L [id number] #### [facility] ([facility]) [address] [place] [address] PROTHROMBIN TIME (PT) IN PPP BY COAGULATION ASSAY 14.5 Seconds Normal 12.3-14.8 [facility] Comment on above: Performed By: #### L [id number] #### [facility] ([facility]) [address] [place] [address] PTH, INTACTon 04-28-2023 PARATHYRIN INTACT (PG/ML) IN SER/PLAS 48 pg/mL Normal [facility] Comment on above: Performed By: #### L [id number] ####[facility] ([facility])[address] [place] [address] SODIUM, URINE, RANDOMon 04-11 Sodium (U) [Moles/Vol] 35 mmol/L Normal [facility] Comment on above: Performed By: #### L [id number] #### [facility] ([facility]) [address] [place] [address] TACROLIMUS LEVELon Tacrolimus (Bld) [Mass/Vol] 11.6 ng/mL Normal 5.0-20.0 [facility] Comment on above: Result Comment: The [employer] Tacrolimus assay is a delayed one-step immunoassay for the quantitative determination of tacrolimus in human whole blood using the chemiluminescent microparticle immunoassay (CMIA) technology with flexible assay protocols, referred to as Chemiflex. Performed By: #### L [id number] #### [facility] ([facility]) [address] [place] [address] TROPONIN Ion 04-28-2023 Troponin I.cardiac [Mass/Vol] 0.02 ng/mL Normal 0.00-0.04 [facility] Comment on above: Performed By: #### L [id number] ####[facility] ([facility])[address] [place] [address] Troponin I.cardiac [Mass/Vol] 0.02 ng/mL Normal 0.00-0.04 [facility] Comment on above: Performed By: #### L [id number] ####[facility] ([facility])[address] [place] [address] Troponin I.cardiac [Mass/Vol] 0.04 ng/mL Normal 0.00-0.04 [facility] Comment on above: Performed By: #### L [id number] #### [facility] ([facility]) [address] [place] [address] URINALYSIS MICROSCOPIC WITH REFLEX CULTUREon 04-28-2023 CASTS IN URINE Normal [facility] Comment on above: Performed By: #### L [id number] #### [facility] ([facility]) [address] [place] [address] CRYSTALS IN URINE Normal [facility] Comment on above: Performed By: #### L [id number] #### [facility] ([facility]) [address] [place] [address] OTHER MICROSCOPIC ELEMENTS Normal [facility] Comment on above: Performed By: #### L [id number] #### [facility] ([facility]) [address] [place] [address] RBC (#/HPF) IN URINE SEDIMENT 21-50 Abnormal None Seen [facility] Comment on above: Performed By: #### L [id number] #### [facility] ([facility]) [address] [place] [address] SQUAMOUS EPITHELIAL CELLS (#/HPF) IN URINE SEDIMENT Occasional Normal None Seen, Occasional [facility] Comment on above: Performed By: #### L [id number] #### [facility] ([facility]) [address] [place] [address] WBC (LEUKOCYTE) (#/HPF) IN URINE SEDIMENT 6-10 Abnormal None Seen [facility] Comment on above: Performed By: #### L [id number] #### [facility] ([facility]) [address] [place] [address] URINALYSIS WITH REFLEX CULTU REon 04-28-2023 BILIRUBIN, TOTAL PRESENCE IN URINE Negative Normal Negative [facility] Comment on above: Performed By: #### L [id number] ####[facility] ([facility])[address] [place] [address] Clarity (U) Clear Normal Clear [facility] Comment on above: Performed By: #### L [id number] ####[facility] ([facility])[address] [place] [address] Color (U) Yellow Normal Yellow [facility] Comment on above: Performed By: #### L [id number] ####[facility] ([facility])[address] [place] [address] Glucose (U) [Mass/Vol] Negative Normal Negative [facility] Comment on above: Performed By: #### L [id number] ####[facility] ([facility])[address] [place] [address] HEMOGLOBIN PRESENCE IN URINE Moderate Abnormal Negative [facility] Comment on above: Performed By: #### L [id number] ####[facility] ([facility])[address] [place] [address] Ketones Ql (U) 20 mg/dL Abnormal Negative [facility] Comment on above: Performed By: #### L [id number] ####[facility] ([facility])[address] [place] [address] LEUKOCYTE ESTERASE PRESENCE IN URINE BY TEST STRIP Trace Abnormal Negative [facility] Comment on above: Performed By: #### L [id number] ####[facility] ([facility])[address] [place] [address] NITRITE PRESENCE IN URINE Negative Normal Negative [facility] Comment on above: Performed By: #### L [id number] ####[facility] ([facility])[address] [place] [address] pH (U) 5.0 [pH] Normal 5.0-8.0 [facility] Comment on above: Performed By: #### L [id number] ####[facility] ([facility])[address] [place] [address] Protein (U) [Mass/Vol] 30 mg/dL Abnormal Negative [facility] Comment on above: Performed By: #### L [id number] ####[facility] ([facility])[address] [place] [address] Specific gravity (U) [Rel density] 1.015 Normal 1.015-1.020 [facility] Comment on above: Performed By: #### L [id number] ####[facility] ([facility])[address] [place] [address] Office Visiton 04-22-2023 Follow-up visit [id number] Roger Suarez 1950 M Date Provider Department Center 04/22/2023 BENJA FIGUEROA [facility] Family History Problem Relation Age of Onset Diabetes Mother Hypertension Mother Coronary artery disease Mother Other Mother Cystic kidney disease Mother Hypertension Father Skin cancer Father Cystic kidney disease Father Cystic kidney disease Sister Heart disease Brother ALS Brother Cystic kidney disease Brother Family Status - Relation Status Age at Mother Father Sister Brother Level of Service:68382 AL OFFICE/OUTPATIENT ESTABLISHED LOW MDM 20-29 MIN Normal [facility] Documentationon 04-07-2023 Documentation [id number] Roger Suarez 1950 M Date Provider Department [...] Age at Mother Father Sister Brother Normal [facility] Orders Onlyon 04-02-2023 Orders Only [id number] SuarezRosasRoger E 1950 M Date Provider Department [...] Age at Mother Father Sister Brother Normal [facility] 29on 11-11-2022 29 Addended by: DI GALLO on: 11/11/2022 12:52 PM Modules accepted: Orders Normal [facility] BILIRUBIN, DIRECTon 11-12-19 23 Magnesium [Mass/Vol] 0.1 mg/dL Normal 0-0.[address] [facility] Comment on above: Performed By: #### L [id number] #### [facility] ([facility]) [address] [place] [address] BK VIRUS, PLASMA, QUANTITATI VEon 11-11-2022 BK QUANTITATION Not detected Normal [facility]ed [facility] Comment on above: Order Comment: DRAW Q 3 MONTHS MAY, August, November, FEBRUARY Result Comment: Meth od: BK virus was measured by quantitative polymerase chain reaction using a fluorescent hydrolysis probe targeting the polyomavirus BK LAUNDRY AIDE-1 gene. The lower limit of quantitation of the assay is 500 copies of BK genome per milliliter of plasma or urine, and any detectable BK DNA below that level is reported as: Detected, <500 copies/ml. Serial BK virus measurement can be used to monitor disease activity. (Reference: Katina ramirezl. J CLIN MICRO 2004; 42:6023-0231). This test was developed and its performance characteristics determined by the [facility]. It has not been approved by the US Food and Drug Administration. However, such approval is not required for clinical implementation, and test results have been shown to be clinically useful. This laboratory is CAP accredited and CLIA certified to perform high complexity testing. Performed By: #### L [id number] #### [facility] ([facility]) [address] [place] [address] BK QUANTITATION LOG Not detected Normal Not Detected [facility] Comment on above: Order Comment: DRAW Q 3 MONTHS MAY, August, November, FEBRUARY Performed By: #### L [id number] #### [facility] ([facility]) [address] [place] [address] CBC WITH AUTO DIFFERENTIALon 11-11-2022 Basophils (Bld) [#/Vol] 0.02 10*3/uL Normal 0.00-0.20 [facility] Comment on above: Performed By: #### L [id number] ####[facility] ([facility])[address] [place] [address] Basophils/100 WBC (Bld) 0.3 % Normal 0.0-1.0 [facility] Comment on above: Performed By: #### L [id number] ####[facility] ([facility])[address] [place] [address] Eosinophils (Bld) [#/Vol] 0.09 10*3/uL Normal 0.00-0.50 [facility] Comment on above: Performed By: #### L [id number] ####[facility] ([facility])[address] [place] [address] Eosinophils/100 WBC (Bld) 1.5 % Normal 0.0-6.0 [facility] Comment on above: Performed By: #### L [id number] ####[facility] ([facility])[address] [place] [address] Erythrocyte distribution width (RBC) [Ratio] 13.2 % Normal 11.5-15.0 [facility] Comment on above: Performed By: #### L [id number] ####[facility] ([facility])[address] [place] [address] ERYTHROCYTE MEAN CORPUSCULAR HEMOGLOBIN CONCENTRATION (G/DL) BY AUTOMATED 32.9 g/dL Normal 32.0-35.0 [facility] Comment on above: Performed By: #### L [id number] ####[facility] ([facility])[address] [place] [address] Hematocrit (Bld) [Volume fraction] 35.9 % Low 39.0-55.0 [facility] Comment on above: Performed By: #### L [id number] ####[facility] ([facility])[address] [place] [address] Hemoglobin (Bld) [Mass/Vol] 11.8 g/dL Low 13.0-17.0 [facility] Comment on above: Performed By: #### L [id number] ####[facility] ([facility])[address] [place] [address] Immature granulocytes (Bld) [#/Vol] 0.07 10*3/uL Normal 0.00-0.20 [facility] Comment on above: Performed By: #### L [id number] ####[facility] ([facility])[address] [place] [address] Immature granulocytes/100 WBC (Bld) 1.2 % High 0.0-1.0 [facility] Comment on above: Performed By: #### L [id number] ####[facility] ([facility])[address] [place] [address] Lymphocytes (Bld) [#/Vol] 0.96 10*3/uL Low 1.20-4.00 [facility] Comment on above: Performed By: #### L [id number] ####[facility] ([facility])[address] [place] [address] Lymphocytes/100 WBC (Bld) 16.4 % Low 20.0-45.0 [facility] Comment on above: Performed By: #### L [id number] ####[facility] ([facility])[address] [place] [address] MCH (RBC) [Entitic mass] 28.6 pg Normal 27.0-33.0 [facility] Comment on above: Performed By: #### L [id number] ####[facility] ([facility])[address] [place] [address] MCV (RBC) [Entitic vol] 86.9 fL Normal 82.0-98.0 [facility] Comment on above: Performed By: #### L [id number] ####[facility] ([facility])[address] [place] [address] Monocytes (Bld) [#/Vol] 0.61 10*3/uL Normal 0.10-1.00 [facility] Comment on above: Performed By: #### L [id number] ####[facility] ([facility])[address] [place] [address] Monocytes/100 WBC (Bld) 10.4 % Normal 5.0-12.0 [facility] Comment on above: Performed By: #### L [id number] ####[facility] ([facility])[address] [place] [address] Neutrophils (Bld) [#/Vol] 4.12 10*3/uL Normal 1.60-7.60 [facility] Comment on above: Performed By: #### L [id number] ####[facility] ([facility])[address] [place] [address] Neutrophils/100 WBC (Bld) 70.2 % Normal 40.0-72.0 [facility] Comment on above: Performed By: #### L [id number] ####[facility] ([facility])[address] [place] [address] NRBC (PER 100 WBCS) BY AUTOMATED COUNT 0.0 % Normal 0 [facility] Comment on above: Performed By: #### L [id number] ####[facility] ([facility])[address] [place] [address] PLATELETS (10*3/UL) IN BLOOD AUTOMATED COUNT 232 10*3/uL Normal 150-400 [facility] Comment on above: Performed By: #### L [id number] ####[facility] ([facility])[address] [place] [address] RBC (Bld) [#/Vol] 4.13 10*6/uL Low 4.20-5.70 [facility] Comment on above: Performed By: #### L [id number] ####[facility] ([facility])[address] [place] [address] WBC (Bld) [#/Vol] 5.87 10*3/uL Normal 4.00-10.60 [facility] Comment on above: Performed By: #### L [id number] ####[facility] ([facility])[address] [place] [address] COMPREHENSIVE METABOLIC PANE Claudio 11-11-2022 Albumin [Mass/Vol] 4.5 g/dL Normal 3.5-5.7 [facility] Comment on above: Performed By: #### L [id number] #### [facility] ([facility]) [address] [place] [address] ALP [Catalytic activity/Vol] 131 U/L High 34-104 [facility] Comment on above: Performed By: #### L [id number] #### [facility] ([facility]) [address] [place] [address] ALT [Catalytic activity/Vol] 16 U/L Normal 7-52 [facility] Comment on above: Performed By: #### L [id number] #### [facility] ([facility]) [address] [place] [address] Anion gap [Moles/Vol] 14 mmol/L Normal 7-20 [facility] Comment on above: Performed By: #### L [id number] #### [facility] ([facility]) [address] [place] [address] AST [Catalytic activity/Vol] 17 U/L Normal 13-39 [facility] Comment on above: Performed By: #### L [id number] #### [facility] ([facility]) [address] [place] [address] Bilirubin [Mass/Vol] 0.4 mg/dL Normal 0.3-1.0 [facility] Comment on above: Performed By: #### L [id number] #### [facility] ([facility]) [address] [place] [address] Calcium [Mass/Vol] 8.0 mg/dL Low 8.6-10.3 [facility] Comment on above: Performed By: #### L [id number] #### [facility] ([facility]) [address] [place] [address] Chloride [Moles/Vol] 95 mmol/L Low 98-107 [facility] Comment on above: Performed By: #### L [id number] #### [facility] ([facility]) [address] [place] [address] CO2 [Moles/Vol] 24 mmol/L Normal 21-31 [facility] Comment on above: Performed By: #### L [id number] #### [facility] ([facility]) [address] [place] [address] Creatinine [Mass/Vol] 1.03 mg/dL Normal 0.70-1.30 [facility] Comment on above: Performed By: #### L [id number] #### [facility] ([facility]) [address] [place] [address] GLOMERULAR FILTRATION RATE ML/MIN/1.73 SQ M.PREDICTED 78.1 mL/min/1.73m*2 Normal >60.0 [facility] Comment on above: Result Comment: [facility]???s estimated glomerular filtration rate (eGFR) will no [...] individuals. Performed By: #### L [id number] #### [facility] ([facility]) [address] [place] [address] Glucose [Mass/Vol] 202 mg/dL High 70-100 [facility] Comment on above: Performed By: #### L [id number] #### [facility] ([facility]) [address] [place] [address] Potassium [Moles/Vol] 4.6 mmol/L Normal 3.5-5.1 [facility] Comment on above: Performed By: #### L [id number] #### [facility] ([facility]) [address] [place] [address] Protein [Mass/Vol] 6.7 g/dL Normal 6.0-8.3 [facility] Comment on above: Performed By: #### L [id number] #### [facility] ([facility]) [address] [place] [address] Sodium [Moles/Vol] 128 mmol/L Low 136-145 [facility] Comment on above: Performed By: #### L [id number] #### [facility] ([facility]) [address] [place] [address] Urea nitrogen [Mass/Vol] 11 mg/dL Normal 7-25 [facility] Comment on above: Performed By: #### L [id number] #### [facility] ([facility]) [address] [place] [address] UREA NITROGEN/CREATININE (MASS RATIO) IN SER/PLAS 10.7 Normal [facility] Comment on above: Performed By: #### L [id number] #### [facility] ([facility]) [address] [place] [address] Documentationon 11-11-2022 Documentation [id number] Roger Suarez 1950 M Date Provider Department [...] Age at Mother Father Sister Brother Normal [facility] Documentation [id number] Roger Suarez 1950 M Date Provider Department [...] Age at Mother Father Sister Brother Normal [facility] Follow-Upon 11-11-2022 Follow-Up [id number] Roger Suarez 1950 M Date Provider Department [...] at Mother Father Sister Brother Level of Service:21425 AL OFFICE/OUTPATIENT ESTABLISHED LOW MDM 20-29 MIN Reason for Visit and Comments: Kidney Follow-up [[id number]] - 6 mo follow No concerns Normal [facility] HEMOGLOBIN A1Con 11-11-2022 Glucose [Mass/Vol] 197 mg/dL Normal [facility] Comment on above: Order Comment: DRAW Q 3 MONTHS MAY, August, November, Performed By: #### L [id number] #### [facility] ([facility]) [address] [place] [address] HbA1c (Bld) [Mass fraction] 8.5 % High 4.0-6.0 [facility] Comment on above: Order Comment: DRAW Q 3 MONTHS MAY, August, November, FEBRUARY Performed By: #### L [id number] #### [facility] ([facility]) [address] [place] [address] LIPID PANELon 11-11-2022 CHOL/HDL 2.2 mg/dL Normal [facility] Comment on above: Performed By: #### L [id number] ####[facility] ([facility])[address] [place] [address] Cholesterol [Mass/Vol] 90 mg/dL Low 120-200 [facility] Comment on above: Performed By: #### L [id number] ####[facility] ([facility])[address] [facility] [place] [address] Magnesium [Mass/Vol] 60 mg/dL Normal 40-149 [facility] Comment on above: Result Comment: TRIG LYCERIDE REFERENCE RANGE: 20 YEARS AND OLDER CARDIOVASCULAR RISK LESS THAN 150 mg/dL LOW RISK 150 TO 199 mg/dL BORDERLINE RISK 200 mg/dL AND GREATER HIGH RISK Performed By: #### L [id number] ####[facility] ([facility])[address] [place] [address] Magnesium [Mass/Vol] 37 mg/dL Normal 0-160 [facility] Comment on above: Performed By: #### L [id number] ####[facility] ([facility])[address] [place] [address] Magnesium [Mass/Vol] 41 mg/dL Normal 23-92 [facility] Comment on above: Performed By: #### L [id number] ####[facility] ([facility])[address] [place] [address] NON HDL CHOL. (LDL+VLDL) 49 Normal [facility] Comment on above: Performed By: #### L [id number] ####[facility] ([facility])[address] [place] [address] TOTAL VLDL-C 12 mg/dL Normal 0-40 [facility] Comment on above: Performed By: #### L [id number] ####[facility] ([facility])[address] [place] [address] Labon 11-11-2022 Lab [id number] Roger Suarez 1950 M Date Provider Department [employer] 11/11/202295765-EAM DRAW STATION KXT Draw [facility] Family History Problem Relation Age of Onset Diabetes Mother Hypertension Mother Coronary artery disease Mother Other Mother Cystic kidney disease Mother Hypertension Father Skin cancer Father Cystic kidney disease Father Cystic kidney disease Sister Heart disease Brother ALS Brother Cystic kidney disease Brother Family Status - Relation Status Age at Mother Father Sister Brother Normal [facility] MAGNESIUMon 11-11-2022 Magnesium [Mass/Vol] 1.3 mg/dL Low 1.9-2.7 [facility] Comment on above: Performed By: #### L [id number] #### [facility] ([facility]) [address] [place] [address] Orders Onlyon 11-11-2022 Orders Only [id number] Roger Suarez 1950 M Date Provider Department [...] Age at Mother Father Sister Brother Normal [facility] PHOSPHORUSon 11-11-2022 Magnesium [Mass/Vol] 4.2 mg/dL Normal 2.5-5.0 [facility] Comment on above: Performed By: #### L [id number] #### [facility] ([facility]) [address] [place] [address] TACROLIMUS LEVELon 3 Tacrolimus (Bld) [Mass/Vol] 6.2 ng/mL Normal 5.0-20.0 [facility] Comment on above: Result Comment: DRAW Q 3 MONTHS MAY, August, November, FEBRUARY Performed By: #### L [id number] #### [facility] ([facility]) [address] [place] [address] URIC ACIDon 11-11-2022 Magnesium [Mass/Vol] 6.0 mg/dL Normal 4.4-7.6 [facility] Comment on above: Performed By: #### L [id number] ####[facility] ([facility])[address] [place] [address] 36on 10-09-2022 36 Per patient he has been getting labs done monthly at [facility]. 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 Normal [facility] FK506 (TACROLIMUS) WHOLE BLO ODon 10-06-2022 Tacrolimus (FK506), Blood 3.8 ng/mL Normal 2.0-20.0 [facility] Comment on above: Result Comment: Trou gh (immediately following transplant) 15.0 . Trough (steady state, 2 weeks or more after transplant): 3.0 - 8.0 . Performed by LC-MS/MS technology. Performed By: #### U CLINT, CMP, LIPID, DBIL, PHOS, MG #### [facility] [address] [address] [address] Brea Causey Office Visiton 10-04-2022 Follow-up visit [id number] Roger Suarez 1950 M Date Provider Department Center 10/04/2022 MARIO SINGH [facility] Family History Problem Relation Age of Onset Diabetes Mother Hypertension Mother Coronary artery disease Mother Other Mother Cystic kidney disease Mother Hypertension Father Skin cancer Father Cystic kidney disease Father Cystic kidney disease Sister Heart disease Brother ALS Brother Cystic kidney disease Brother Family Status - Relation Status Age at Mother Father Sister Brother Level of Service:59877 AL OFFICE/OUTPATIENT ESTABLISHED MOD MDM 30-39 MIN Reason for Visit and Comments: Coronary Artery Disease [187] Hypertension [763316] Congestive Heart Failure [127] Normal [facility] BILIRUBIN CONJUGATED (DIRECT )on 10-03-2022 BILI, CONJUGATED 0.1 mg/dL Normal 0.0-0.2 [facility] Comment on above: Performed By: #### C BC #### [facility] [address] [address] [address] Brea Causey CBC AUTO DIFFon 10-03-2022 BASO # 0.0 103/ul Normal 0.0-0.1 [facility] Comment on above: Performed By: #### U CLINT, CMP, LIPID, DBIL, PHOS, MG #### [facility] [address] [address] [address] Brea Causey Basophils/100 WBC (Bld) 0.5 % Normal 0.2-2.0 [facility] Comment on above: Performed By: #### U CLINT, CMP, LIPID, DBIL, PHOS, MG #### [facility] [address] [address] [address] Brea Causey EO # 0.1 103/ul Normal 0.0-0.7 [facility] Comment on above: Performed By: #### U CLINT, CMP, LIPID, DBIL, PHOS, MG #### [facility] [address] [address] [address] Brea Causey Eosinophils/100 WBC (Bld) 2.3 % Normal 0.9-7.0 [facility] Comment on above: Performed By: #### U CLINT, CMP, LIPID, DBIL, PHOS, MG #### [facility] [address] [place] [address] Dr. Brea Causey Erythrocyte distribution width (RBC) [Ratio] 13.2 % Normal 11.0-15.0 [facility] Comment on above: Performed By: #### U CLINT, CMP, LIPID, DBIL, PHOS, MG #### [facility] [address] [place] [address] Dr. Brea Causey Hematocrit (Bld) [Volume fraction] 35.0 % Critically low 42.0-54.0 [facility] Comment on above: Performed By: #### U CLINT, CMP, LIPID, DBIL, PHOS, MG #### [facility] [address] [place] [address] Dr. Brea Causey Hemoglobin (Bld) [Mass/Vol] 11.7 g/dL Critically low 14.0-18.0 [facility] Comment on above: Performed By: #### U CLINT, CMP, LIPID, DBIL, PHOS, MG #### [facility] [address] [place] [address] Dr. Brea Causey IG # 0.06 10e3/ul Critically high 0.00-0.03 [facility] Comment on above: Performed By: #### U CLINT, CMP, LIPID, DBIL, PHOS, MG #### [facility] [address] [place] [address] Dr. Brea Causey IG % 1.1 % Critically high 0.0-0.5 [facility] Comment on above: Performed By: #### U CLINT, CMP, LIPID, DBIL, PHOS, MG #### [facility] [address] [place] [address] Dr. Brea Causey LYMPH # 0.8 103/ul Critically low 1.2-3.8 [facility] Comment on above: Performed By: #### U CLINT, CMP, LIPID, DBIL, PHOS, MG #### [facility] [address] [place] [address] Dr. Brea Causey Lymphocytes/100 WBC (Bld) 14.9 % Critically low 20.5-60.0 [facility] Comment on above: Performed By: #### U CLINT, CMP, LIPID, DBIL, PHOS, MG #### [facility] [address] [place] [address] Dr. Brea Causey MANUAL DIFF REQ NO Normal [facility] Comment on above: Performed By: #### U CLINT, CMP, LIPID, DBIL, PHOS, MG #### [facility] [address] [place] [address] Dr. Brea Causey MCH (RBC) [Entitic mass] 28.8 pg Normal 25.9-34.0 [facility] Comment on above: Performed By: #### U CLINT, CMP, LIPID, DBIL, PHOS, MG #### [facility] [address] [place] [address] Dr. Brea Causey MCHC (RBC) [Mass/Vol] 33.4 g/dL Normal 29.9-35.2 [facility] Comment on above: Performed By: #### U CLINT, CMP, LIPID, DBIL, PHOS, MG #### [facility] [address] [place] [address] Dr. Brea Causey MCV (RBC) [Entitic vol] 86.2 fL Normal 80.0-94.0 [facility] Comment on above: Performed By: #### U CLINT, CMP, LIPID, DBIL, PHOS, MG #### [facility] [address] [place] [address] Dr. Brea Causey MONO # 0.5 103/ul Normal 0.3-0.8 [facility] Comment on above: Performed By: #### U CLINT, CMP, LIPID, DBIL, PHOS, MG #### [facility] [address] [place] [address] Dr. Brea Causey Monocytes/100 WBC (Bld) 9.1 % Normal 1.7-12.0 [facility] Comment on above: Performed By: #### U CLINT, CMP, LIPID, DBIL, PHOS, MG #### [facility] [address] [address] [address] Brea Causey NEUT # 4.1 103/ul Normal 1.4-6.5 [facility] Comment on above: Performed By: #### U CLINT, CMP, LIPID, DBIL, PHOS, MG #### [facility] [address] [place] [address] Dr. Brea Causey Neutrophils/100 WBC (Bld) 72.1 % Normal 43.0-75.0 [facility] Comment on above: Performed By: #### U CLINT, CMP, LIPID, DBIL, PHOS, MG #### [facility] [address] [place] [address] Dr. Brea Causey Platelet mean volume (Bld) [Entitic vol] 9.0 fL Critically low 9.5-13.5 [facility] Comment on above: Performed By: #### U CLINT, CMP, LIPID, DBIL, PHOS, MG #### [facility] [address] [place] [address] Dr. Brea Causey PLT 211 103/ul Normal 150-450 [facility] Comment on above: Performed By: #### U CLINT, CMP, LIPID, DBIL, PHOS, MG #### [facility] [address] [place] [address] Dr. Brea Causey RBC 4.06 106/ul Critically low 4.70-6.10 [facility] Comment on above: Performed By: #### U CLINT, CMP, LIPID, DBIL, PHOS, MG #### [facility] [address] [place] [address] Dr. Brea Causey WBC 5.6 103/ul Normal 4.0-11.0 [facility] Comment on above: Performed By: #### U CLINT, CMP, LIPID, DBIL, PHOS, MG #### [facility] [address] [address] [address] Brea Causey LIPID PROFILEon 10-03-2022 CHOL-HDL RATIO NORM SEE BELOW Normal [facility] Comment on above: Result Comment: 3.3 - 4.4 LOW RISK 4.4 - 7.1 AVERAGE RISK 7.1 - 11.0 MODERATE RISK >11.0 HIGH RISK Performed By: #### C BC #### [facility] [address] [address] [address] Brea Causey Cholesterol [Mass/Vol] 93 mg/dL Normal <=200 [facility] Comment on above: Performed By: #### C BC #### [facility] [address] [address] [address] Brea Causey Cholesterol in HDL [Mass/Vol] 43 mg/dL Normal 40-60 [facility] Comment on above: Performed By: #### C BC #### [facility] [address] [address] [address] Brea Causey Cholesterol in LDL [Mass/Vol] 37.6 mg/dL Normal [facility] Comment on above: Performed By: #### C BC #### [facility] [address] [address] [address] Brea Causey Cholesterol.total/Cho lesterol in HDL [Mass ratio] 2.2 {ratio} Normal [facility] Comment on above: Performed By: #### C BC #### [facility] [address] [address] [address] Brea Causey HDL NORMAL > or = 60 mg/dl - LO W CARDIOVASCULAR RISK <40 mg/dl - HIGH CARDIOVASCULAR RISK Normal [facility] Comment on above: Performed By: #### C BC #### [facility] [address] [address] [address] Brea Causey LDL CALC NORMAL SEE BELOW Normal [facility] Comment on above: Result Comment: <100 mg/dl OPTIMAL 100 - 129 mg/dl NEAR OR ABOVE OPTIMAL 130 - 159 mg/dl BORDERLINE HIGH 160 - 189 mg/dl HIGH >190 mg/dl VERY HIGH Performed By: #### C BC #### [facility] [address] [place] [address] Dr. Brea Causey Triglyceride [Mass/Vol] 62 mg/dL Normal <=150 [facility] Comment on above: Performed By: #### C BC #### [facility] [address] [place] [address] Dr. Brea Causey VLDL CALC 12.4 mg/dL Normal [facility] Comment on above: Performed By: #### C BC #### [facility] [address] [place] [address] Dr. Brea Causey MAGNESIUMon 10-03-2022 Magnesium [Mass/Vol] 1.5 mg/dL Critically low 1.8-2.4 [facility] Comment on above: Performed By: #### C BC #### [facility] [address] [place] [address] Dr. Brea Causey PHOSPHORUSon 10-03-2022 Phosphate [Mass/Vol] 4.4 mg/dL Normal 2.6-4.7 [facility] Comment on above: Performed By: #### C BC #### [facility] [address] [place] [address] Dr. Brea Causey PROF 14(COMP METB)on 023 Albumin [Mass/Vol] 3.8 g/dL Normal 3.4-5.0 [facility] Comment on above: Performed By: #### C BC #### [facility] [address] [place] [address] Dr. Brea Causey Albumin/Globulin [Mass ratio] 1.1 {ratio} Normal [facility] Comment on above: Performed By: #### C BC #### [facility] [address] [place] [address] Dr. Brea Causey ALP [Catalytic activity/Vol] 190 U/L Critically high 46-116 [facility] Comment on above: Performed By: #### C BC #### [facility] [address] [address] [address] Brea Causey ALT [Catalytic activity/Vol] 26 U/L Normal 16-63 [facility] Comment on above: Performed By: #### C BC #### [facility] [address] [place] [address] Dr. Brea Causey Anion gap [Moles/Vol] 15.3 mmol/L Normal [facility] Comment on above: Performed By: #### C BC #### [facility] [address] [place] [address] Dr. Brea Causey AST [Catalytic activity/Vol] 23 U/L Normal 15-37 [facility] Comment on above: Performed By: #### C BC #### [facility] [address] [place] [address] Dr. Brea Causey Bilirubin [Mass/Vol] 0.4 mg/dL Normal 0.2-1.0 [facility] Comment on above: Performed By: #### C BC #### [facility] [address] [place] [address] Dr. Brea Causey Calcium [Mass/Vol] 7.8 mg/dL Critically low 8.5-10.1 [facility] Comment on above: Performed By: #### C BC #### [facility] [facility] [address] [place] [address] Dr. Brea Causey Chloride [Moles/Vol] 97 mmol/L Critically low 98-107 [facility] Comment on above: Performed By: #### C BC #### [facility] [address] [place] [address] Dr. Brea Causey CO2 [Moles/Vol] 25.6 mmol/L Normal 21.0-32.0 [facility] Comment on above: Performed By: #### C BC #### [facility] [address] [place] [address] Dr. Brea Causey Creatinine [Mass/Vol] 1.03 mg/dL Normal 0.70-1.30 [facility] Comment on above: Performed By: #### C BC #### [facility] [address] [place] [address] Dr. Brea Causey EGFR-AF LITHUANIAN >60 Normal >=60 [facility] Comment on above: Performed By: #### C BC #### [facility] [address] [address] [address] Brea Causey EGFR-NON AF LITHUANIAN >60 Normal >=60 [facility] Comment on above: Performed By: #### C BC #### [facility] [address] [address] [address] Brea Causey Globulin (S) [Mass/Vol] 3.6 g/dL Normal [facility] Comment on above: Performed By: #### C BC #### [facility] [address] [address] [address] Brea Causey Glucose [Mass/Vol] 188 mg/dL Critically high 74-106 [facility] Comment on above: Performed By: #### C BC #### [facility] [address] [address] [address] Brea Causey Potassium [Moles/Vol] 4.9 mmol/L Normal 3.5-5.1 [facility] Comment on above: Performed By: #### C BC #### [facility] [address] [place] [address] Dr. Brea Causey Protein [Mass/Vol] 7.4 g/dL Normal 6.4-8.2 [facility] Comment on above: Performed By: #### C BC #### [facility] [address] [address] [address] Brea Causey Sodium [Moles/Vol] 133 mmol/L Critically low 136-145 [facility] Comment on above: Performed By: #### C BC #### [facility] [address] [address] [address] Brea Causey Urea nitrogen [Mass/Vol] 11.0 mg/dL Normal 7.0-18.0 [facility] Comment on above: Performed By: #### C BC #### [facility] [address] [address] [address] Brea Causey Urea nitrogen/Creatinine [Mass ratio] 10.7 mg/mg Normal [facility] Comment on above: Performed By: #### C BC #### [facility] [address] [place] [address] Dr. Brea Causey URIC ACID SERUMon 10-03-2022 Urate [Mass/Vol] 5.7 mg/dL Normal 3.5-7.2 [facility] Comment on above: Performed By: #### C BC #### [facility] [address] [place] [address] Dr. Brea Causey BK VIRUS PCR QUANTon 023 BKV DNA QUANT PCR PLASMA Negative Normal Negative [facility] Comment on above: Result Comment: No B K DNA detected. . The linear range of the assay is 22 - 100,000,000 IU/mL. Performed By: #### U CLINT, CMP, LIPID, DBIL, PHOS, MG #### [facility] [address] [place] [address] Dr. Brea Causey Log10 BKV DNA Plasma Normal [facility] Comment on above: Performed By: #### U CLINT, CMP, LIPID, DBIL, PHOS, MG #### [facility] [address] [place] [address] Dr. Brea Causey FK506 (TACROLIMUS) WHOLE BLO ODon 09-02-2022 Tacrolimus (FK506), Blood 3.8 ng/mL Normal 2.0-20.0 [facility] Comment on above: Result Comment: Trou gh (immediately following transplant) 15.0 . Trough (steady state, 2 weeks or more after transplant): 3.0 - 8.0 . Performed by LC-MS/MS technology. Performed By: #### U CLINT, CMP, LIPID, DBIL, PHOS, MG #### [facility] [address] [place] [address] Dr. Brea Causey TESTOSTERONE, FREE,DIRECT, T OTALon 09-01-2022 Free Testosterone(Direct) 9.7 pg/mL Normal 6.6-18.1 [facility] Comment on above: Result Comment: Perf ormed at: BN Performed By: #### U CLINT, CMP, LIPID, DBIL, PHOS, MG #### [facility] [address] [place] [address] Dr. Brea Causey Testosterone [Mass/Vol] 565 ng/dL Normal 264-916 [facility] Comment on above: Result Comment: Adul t male reference interval is based on a population of healthy nonobese males (BMI <30) between 19 and 39 years old. daniel Harris.al. JCEM 2017,102;1264-4161. PMID: [id number]. Performed at: CB Performed By: #### U CLINT, CMP, LIPID, DBIL, PHOS, MG #### [facility] [address] [place] [address] Dr. Brea Causey BILIRUBIN CONJUGATED (DIRECT )on 08-30-2022 BILI, CONJUGATED 0.1 mg/dL Normal 0.0-0.2 [facility] Comment on above: Performed By: #### U CLINT, CMP, LIPID, DBIL, PHOS, MG #### [facility] [address] [place] [address] Dr. Brea Causey CBC AUTO DIFFon 08-30-2022 BASO # 0.0 103/ul Normal 0.0-0.1 [facility] Comment on above: Performed By: #### U CLINT, CMP, LIPID, DBIL, PHOS, MG #### [facility] [address] [place] [address] Dr. Brea Causey Basophils/100 WBC (Bld) 0.7 % Normal 0.2-2.0 [facility] Comment on above: Performed By: #### U CLINT, CMP, LIPID, DBIL, PHOS, MG #### [facility] [address] [place] [address] Dr. Brea Causey EO # 0.2 103/ul Normal 0.0-0.7 [facility] Comment on above: Performed By: #### U CLINT, CMP, LIPID, DBIL, PHOS, MG #### [facility] [address] [place] [address] Dr. Brea Causey Eosinophils/100 WBC (Bld) 3.6 % Normal 0.9-7.0 [facility] Comment on above: Performed By: #### U CLINT, CMP, LIPID, DBIL, PHOS, MG #### [facility] [address] [address] [address] Brea Causey Erythrocyte distribution width (RBC) [Ratio] 13.2 % Normal 11.0-15.0 [facility] Comment on above: Performed By: #### U CLINT, CMP, LIPID, DBIL, PHOS, MG #### [facility] [address] [place] [address] Dr. Brea Causey Hematocrit (Bld) [Volume fraction] 36.0 % Critically low 42.0-54.0 [facility] Comment on above: Performed By: #### U CLINT, CMP, LIPID, DBIL, PHOS, MG #### [facility] [address] [place] [address] Dr. Brea Causey Hemoglobin (Bld) [Mass/Vol] 12.2 g/dL Critically low 14.0-18.0 [facility] Comment on above: Performed By: #### U CLINT, CMP, LIPID, DBIL, PHOS, MG #### [facility] [address] [place] [address] Dr. Brea Causey IG # 0.07 10e3/ul Critically high 0.00-0.03 [facility] Comment on above: Performed By: #### U CLINT, CMP, LIPID, DBIL, PHOS, MG #### [facility] [address] [place] [address] Dr. Brea Causey IG % 1.2 % Critically high 0.0-0.5 [facility] Comment on above: Performed By: #### U CLINT, CMP, LIPID, DBIL, PHOS, MG #### [facility] [address] [place] [address] Dr. Brea Causey LYMPH # 0.9 103/ul Critically low 1.2-3.8 [facility] Comment on above: Performed By: #### U CLINT, CMP, LIPID, DBIL, PHOS, MG #### [facility] [address] [place] [address] Dr. Brea Causey Lymphocytes/100 WBC (Bld) 15.0 % Critically low 20.5-60.0 [facility] Comment on above: Performed By: #### U CLINT, CMP, LIPID, DBIL, PHOS, MG #### [facility] [address] [place] [address] Dr. Brea Causey MANUAL DIFF REQ NO Normal [facility] Comment on above: Performed By: #### U CLINT, CMP, LIPID, DBIL, PHOS, MG #### [facility] [address] [place] [address] Dr. Brea Causey MCH (RBC) [Entitic mass] 29.4 pg Normal 25.9-34.0 [facility] Comment on above: Performed By: #### U CLINT, CMP, LIPID, DBIL, PHOS, MG #### [facility] [address] [place] [address] Dr. Brea Causey MCHC (RBC) [Mass/Vol] 33.9 g/dL Normal 29.9-35.2 [facility] Comment on above: Performed By: #### U CLINT, CMP, LIPID, DBIL, PHOS, MG #### [facility] [address] [place] [address] Dr. Brea Causey MCV (RBC) [Entitic vol] 86.7 fL Normal 80.0-94.0 [facility] Comment on above: Performed By: #### U CLINT, CMP, LIPID, DBIL, PHOS, MG #### [facility] [address] [place] [address] Dr. Brea Causey MONO # 0.5 103/ul Normal 0.3-0.8 [facility] Comment on above: Performed By: #### U CLINT, CMP, LIPID, DBIL, PHOS, MG #### [facility] [address] [place] [address] Dr. Brea Causey Monocytes/100 WBC (Bld) 9.0 % Normal 1.7-12.0 [facility] Comment on above: Performed By: #### U CLINT, CMP, LIPID, DBIL, PHOS, MG #### [facility] [address] [place] [address] Dr. Brea Causey NEUT # 4.2 103/ul Normal 1.4-6.5 [facility] Comment on above: Performed By: #### U CLINT, CMP, LIPID, DBIL, PHOS, MG #### [facility] [address] [address] [address] Brea Causey Neutrophils/100 WBC (Bld) 70.5 % Normal 43.0-75.0 [facility] Comment on above: Performed By: #### U CLINT, CMP, LIPID, DBIL, PHOS, MG #### [facility] [address] [address] [address] Brea Causey Platelet mean volume (Bld) [Entitic vol] 8.7 fL Critically low 9.5-13.5 [facility] Comment on above: Performed By: #### U CLINT, CMP, LIPID, DBIL, PHOS, MG #### [facility] [address] [place] [address] Dr. Brea Causey PLT 247 103/ul Normal 150-450 [facility] Comment on above: Performed By: #### U CLINT, CMP, LIPID, DBIL, PHOS, MG #### [facility] [address] [address] [address] Brea Causey RBC 4.15 106/ul Critically low 4.70-6.10 [facility] Comment on above: Performed By: #### U CLINT, CMP, LIPID, DBIL, PHOS, MG #### [facility] [address] [address] [address] Brea Causey WBC 5.9 103/ul Normal 4.0-11.0 [facility] Comment on above: Performed By: #### U CLINT, CMP, LIPID, DBIL, PHOS, MG #### [facility] [address] [address] [address] Brea Causey GLYCOHEMOGLOBIN A1Con 2022 ADA RECOMMENDATION SEE BELOW Normal [facility] Comment on above: Result Comment: ADA RECOMMENDED LIMIT 4.0 - 6.0 ADA THERAPEUTIC TARGET < 7.0 ACTION SUGGESTED > 7.0 Performed By: #### U CLINT, CMP, LIPID, DBIL, PHOS, MG #### [facility] [address] [address] [address] Brea Causey Glucose [Mass/Vol] 177 mg/dL Normal [facility] Comment on above: Performed By: #### U CLINT, CMP, LIPID, DBIL, PHOS, MG #### [facility] [address] [address] [address] Brea Causey HbA1c (Bld) [Mass fraction] 7.8 % Critically high 4.5-6.2 [facility] Comment on above: Performed By: #### U CLINT, CMP, LIPID, DBIL, PHOS, MG #### [facility] [address] [address] [address] Brea Causey LIPID PROFILEon 08-30-2022 CHOL-HDL RATIO NORM SEE BELOW Normal [facility] Comment on above: Result Comment: 3.3 - 4.4 LOW RISK 4.4 - 7.1 AVERAGE RISK 7.1 - 11.0 MODERATE RISK >11.0 HIGH RISK Performed By: #### U CLINT, CMP, LIPID, DBIL, PHOS, MG #### [facility] [address] [address] [address] Brea Causey Cholesterol [Mass/Vol] 96 mg/dL Normal <=200 [facility] Comment on above: Performed By: #### U CLINT, CMP, LIPID, DBIL, PHOS, MG #### [facility] [address] [address] [address] Brea Causey Cholesterol in HDL [Mass/Vol] 48 mg/dL Normal 40-60 [facility] Comment on above: Performed By: #### U CLINT, CMP, LIPID, DBIL, PHOS, MG #### [facility] [address] [address] [address] Brea Causey Cholesterol in LDL [Mass/Vol] 40.2 mg/dL Normal [facility] Comment on above: Performed By: #### U CLINT, CMP, LIPID, DBIL, PHOS, MG #### [facility] [address] [address] [address] Brea Causey Cholesterol.total/Cho lesterol in HDL [Mass ratio] 2.0 {ratio} Normal [facility] Comment on above: Performed By: #### U CLINT, CMP, LIPID, DBIL, PHOS, MG #### [facility] [address] [address] [address] Brea Causey HDL NORMAL > or = 60 mg/dl - LO W CARDIOVASCULAR RISK <40 mg/dl - HIGH CARDIOVASCULAR RISK Normal [facility] Comment on above: Performed By: #### U CLINT, CMP, LIPID, DBIL, PHOS, MG #### [facility] [address] [address] [address] Brea Causey LDL CALC NORMAL SEE BELOW Normal [facility] Comment on above: Result Comment: <100 mg/dl OPTIMAL 100 - 129 mg/dl NEAR OR ABOVE OPTIMAL 130 - 159 mg/dl BORDERLINE HIGH 160 - 189 mg/dl HIGH >190 mg/dl VERY HIGH Performed By: #### U CLINT, CMP, LIPID, DBIL, PHOS, MG #### [facility] [address] [address] [address] Brea Causey Triglyceride [Mass/Vol] 39 mg/dL Normal <=150 [facility] Comment on above: Performed By: #### U CLINT, CMP, LIPID, DBIL, PHOS, MG #### [facility] [address] [address] [address] Brea Causey VLDL CALC 7.8 mg/dL Normal [facility] Comment on above: Performed By: #### U CLINT, CMP, LIPID, DBIL, PHOS, MG #### [facility] [address] [address] [address] Brea Causey MAGNESIUMon 08-30-2022 Magnesium [Mass/Vol] 1.5 mg/dL Critically low 1.8-2.4 [facility] Comment on above: Performed By: #### U CLINT, CMP, LIPID, DBIL, PHOS, MG #### [facility] [address] [place] [address] Dr. Brea Causey PHOSPHORUSon 08-30-2022 Phosphate [Mass/Vol] 4.0 mg/dL Normal 2.6-4.7 [facility] Comment on above: Performed By: #### U CLINT, CMP, LIPID, DBIL, PHOS, MG #### [facility] [address] [address] [address] Brea Causey PROF 14(COMP METB)on 023 Albumin [Mass/Vol] 3.8 g/dL Normal 3.4-5.0 [facility] Comment on above: Performed By: #### U CLINT, CMP, LIPID, DBIL, PHOS, MG #### [facility] [address] [address] [address] Brea Causey Albumin/Globulin [Mass ratio] 1.1 {ratio} Normal [facility] Comment on above: Performed By: #### U CLINT, CMP, LIPID, DBIL, PHOS, MG #### [facility] [address] [address] [address] Brea Causey ALP [Catalytic activity/Vol] 177 U/L Critically high 46-116 [facility] Comment on above: Performed By: #### U CLINT, CMP, LIPID, DBIL, PHOS, MG #### [facility] [address] [place] [address] Dr. Brea Causey ALT [Catalytic activity/Vol] 27 U/L Normal 16-63 [facility] Comment on above: Performed By: #### U CLINT, CMP, LIPID, DBIL, PHOS, MG #### [facility] [address] [address] [address] Brea Causey Anion gap [Moles/Vol] 12.1 mmol/L Normal [facility] Comment on above: Performed By: #### U CLINT, CMP, LIPID, DBIL, PHOS, MG #### [facility] [address] [address] [address] Brea Causey AST [Catalytic activity/Vol] 19 U/L Normal 15-37 [facility] Comment on above: Performed By: #### U CLINT, CMP, LIPID, DBIL, PHOS, MG #### [facility] [address] [address] [address] Brea Causey Bilirubin [Mass/Vol] 0.3 mg/dL Normal 0.2-1.0 [facility] Comment on above: Performed By: #### U CLINT, CMP, LIPID, DBIL, PHOS, MG #### [facility] [address] [place] [address] Dr. Brea Causey Calcium [Mass/Vol] 8.0 mg/dL Critically low 8.5-10.1 [facility] Comment on above: Performed By: #### U CLINT, CMP, LIPID, DBIL, PHOS, MG #### [facility] [address] [place] [address] Dr. Brea Causey Chloride [Moles/Vol] 96 mmol/L Critically low 98-107 [facility] Comment on above: Performed By: #### U CLINT, CMP, LIPID, DBIL, PHOS, MG #### [facility] [address] [place] [address] Dr. Brea Causey CO2 [Moles/Vol] 28.0 mmol/L Normal 21.0-32.0 [facility] Comment on above: Performed By: #### U CLINT, CMP, LIPID, DBIL, PHOS, MG #### [facility] [address] [place] [address] Dr. Brea Causey Creatinine [Mass/Vol] 1.07 mg/dL Normal 0.70-1.30 [facility] Comment on above: Performed By: #### U CLINT, CMP, LIPID, DBIL, PHOS, MG #### [facility] [address] [place] [address] Dr. Brea Causey EGFR-AF LITHUANIAN >60 Normal >=60 [facility] Comment on above: Performed By: #### U CLINT, CMP, LIPID, DBIL, PHOS, MG #### [facility] [address] [place] [address] Dr. Brea Causey EGFR-NON AF LITHUANIAN >60 Normal >=60 [facility] Comment on above: Performed By: #### U CLINT, CMP, LIPID, DBIL, PHOS, MG #### [facility] [address] [place] [address] Dr. Brea Causey Globulin (S) [Mass/Vol] 3.5 g/dL Normal [facility] Comment on above: Performed By: #### U CLINT, CMP, LIPID, DBIL, PHOS, MG #### [facility] [address] [place] [address] Dr. Brea Causey Glucose [Mass/Vol] 179 mg/dL Critically high 74-106 T [facility] Comment on above: Performed By: #### U CLINT, CMP, LIPID, DBIL, PHOS, MG #### [facility] [address] [place] [address] Dr. Brea Causey Potassium [Moles/Vol] 5.1 mmol/L Normal 3.5-5.1 [facility] Comment on above: Performed By: #### U CLINT, CMP, LIPID, DBIL, PHOS, MG #### [facility] [address] [place] [address] Dr. Brea Causey Protein [Mass/Vol] 7.3 g/dL Normal 6.4-8.2 [facility] Comment on above: Performed By: #### U CLINT, CMP, LIPID, DBIL, PHOS, MG #### [facility] [address] [place] [address] Dr. Brea Causey Sodium [Moles/Vol] 131 mmol/L Critically low 136-145 Th [facility] Comment on above: Performed By: #### U CLINT, CMP, LIPID, DBIL, PHOS, MG #### [facility] [address] [place] [address] Dr. Brea Causey Urea nitrogen [Mass/Vol] 10.0 mg/dL Normal 7.0-18.0 [facility] Comment on above: Performed By: #### U CLINT, CMP, LIPID, DBIL, PHOS, MG #### [facility] [address] [place] [address] Dr. Brea Causey Urea nitrogen/Creatinine [Mass ratio] 9.3 mg/mg Normal [facility] Comment on above: Performed By: #### U CLINT, CMP, LIPID, DBIL, PHOS, MG #### [facility] [address] [place] [address] Dr. Brea Causey URIC ACID SERUMon 08-30-2022 Urate [Mass/Vol] 6.0 mg/dL Normal 3.5-7.2 [facility] Comment on above: Performed By: #### U CLINT, CMP, LIPID, DBIL, PHOS, MG #### [facility] [address] [place] [address] Dr. Brea Causey FK506 (TACROLIMUS) WHOLE BLO ODon 08-03-2022 Tacrolimus (FK506), Blood 3.2 ng/mL Normal 2.0-20.0 [facility] Comment on above: Result Comment: Trou gh (immediately following transplant) 15.0 . Trough (steady state, 2 weeks or more after transplant): 3.0 - 8.0 . Performed by LC-MS/MS technology. Performed By: #### C BC #### [facility] [address] [place] [address] Dr. Brea Causey BILIRUBIN CONJUGATED (DIRECT )on 08-01-2022 BILI, CONJUGATED 0.1 mg/dL Normal 0.0-0.2 [facility] Comment on above: Performed By: #### U CLINT, CMP, LIPID, DBIL, PHOS, MG #### [facility] [address] [place] [address] Dr. Brea Causey CBC AUTO DIFFon 08-01-2022 BASO # 0.0 103/ul Normal 0.0-0.1 [facility] Comment on above: Performed By: #### C BC #### [facility] [address] [place] [address] Dr. Brea Causey Basophils/100 WBC (Bld) 0.7 % Normal 0.2-2.0 [facility] Comment on above: Performed By: #### C BC #### [facility] [address] [place] [address] Dr. Brea Causey EO # 0.1 103/ul Normal 0.0-0.7 [facility] Comment on above: Performed By: #### C BC #### [facility] [address] [place] [address] Dr. Brea Causey Eosinophils/100 WBC (Bld) 2.4 % Normal 0.9-7.0 [facility] Comment on above: Performed By: #### C BC #### [facility] [address] [place] [address] Dr. Brea Causey Erythrocyte distribution width (RBC) [Ratio] 13.3 % Normal 11.0-15.0 [facility] Comment on above: Performed By: #### C BC #### [facility] [address] [place] [address] Dr. Brea Causey Hematocrit (Bld) [Volume fraction] 36.5 % Critically low 42.0-54.0 [facility] Comment on above: Performed By: #### C BC #### [facility] [address] [place] [address] Dr. Brea Causey Hemoglobin (Bld) [Mass/Vol] 12.1 g/dL Critically low 14.0-18.0 [facility] Comment on above: Performed By: #### C BC #### [facility] [address] [place] [address] Dr. Brea Causey IG # 0.07 10e3/ul Critically high 0.00-0.03 [facility] Comment on above: Performed By: #### C BC #### [facility] [address] [place] [address] Dr. Brea Causey IG % 1.2 % Critically high 0.0-0.5 [facility] Comment on above: Performed By: #### C BC #### [facility] [address] [place] [address] Dr. Brea Causey LYMPH # 0.9 103/ul Critically low 1.2-3.8 [facility] Comment on above: Performed By: #### C BC #### [facility] [address] [place] [address] Dr. Brea Causey Lymphocytes/100 WBC (Bld) 14.5 % Critically low 20.5-60.0 [facility] Comment on above: Performed By: #### C BC #### [facility] [address] [place] [address] Dr. Brea Causey MANUAL DIFF REQ NO Normal [facility] Comment on above: Performed By: #### C BC #### [facility] [address] [place] [address] Dr. Brea Causey MCH (RBC) [Entitic mass] 28.8 pg Normal 25.9-34.0 [facility] Comment on above: Performed By: #### C BC #### [facility] [address] [place] [address] Dr. Brea Causey MCHC (RBC) [Mass/Vol] 33.2 g/dL Normal 29.9-35.2 [facility] Comment on above: Performed By: #### C BC #### [facility] [address] [place] [address] Dr. Brea Causey MCV (RBC) [Entitic vol] 86.9 fL Normal 80.0-94.0 [facility] Comment on above: Performed By: #### C BC #### [facility] [address] [place] [address] Dr. Brea Causey MONO # 0.6 103/ul Normal 0.3-0.8 [facility] Comment on above: Performed By: #### C BC #### [facility] [address] [place] [address] Dr. Brea Causey Monocytes/100 WBC (Bld) 10.3 % Normal 1.7-12.0 [facility] Comment on above: Performed By: #### C BC #### [facility] [address] [place] [address] Dr. Brea Causey NEUT # 4.2 103/ul Normal 1.4-6.5 [facility] Comment on above: Performed By: #### C BC #### [facility] [address] [place] [address] Dr. Brea Causey Neutrophils/100 WBC (Bld) 70.9 % Normal 43.0-75.0 [facility] Comment on above: Performed By: #### C BC #### [facility] [address] [place] [address] Dr. Brea Causey Platelet mean volume (Bld) [Entitic vol] 9.1 fL Critically low 9.5-13.5 [facility] Comment on above: Performed By: #### C BC #### [facility] [address] [address] [address] Brea Causey PLT 248 103/ul Normal 150-450 [facility] Comment on above: Performed By: #### C BC #### [facility] [address] [address] [address] Brea Causey RBC 4.20 106/ul Critically low 4.70-6.10 [facility] Comment on above: Performed By: #### C BC #### [facility] [address] [address] [address] Brea Causey WBC 5.9 103/ul Normal 4.0-11.0 [facility] Comment on above: Performed By: #### C BC #### [facility] [address] [place] [address] Dr. Brea Causey LIPID PROFILEon 08-01-2022 CHOL-HDL RATIO NORM SEE BELOW Normal [facility] Comment on above: Result Comment: 3.3 - 4.4 LOW RISK 4.4 - 7.1 AVERAGE RISK 7.1 - 11.0 MODERATE RISK >11.0 HIGH RISK Performed By: #### U CLINT, CMP, LIPID, DBIL, PHOS, MG #### [facility] [address] [place] [address] Dr. Brea Causey Cholesterol [Mass/Vol] 95 mg/dL Normal <=200 [facility] Comment on above: Performed By: #### U CLINT, CMP, LIPID, DBIL, PHOS, MG #### [facility] [address] [place] [address] Dr. Brea Causey Cholesterol in HDL [Mass/Vol] 49 mg/dL Normal 40-60 [facility] Comment on above: Performed By: #### U CLINT, CMP, LIPID, DBIL, PHOS, MG #### [facility] [address] [place] [address] Dr. Brea Causey Cholesterol in LDL [Mass/Vol] 35.4 mg/dL Normal [facility] Comment on above: Performed By: #### U CLINT, CMP, LIPID, DBIL, PHOS, MG #### [facility] [address] [address] [address] Brea Causey Cholesterol.total/Cho lesterol in HDL [Mass ratio] 1.9 {ratio} Normal [facility] Comment on above: Performed By: #### U CLINT, CMP, LIPID, DBIL, PHOS, MG #### [facility] [address] [address] [address] Brea Causey HDL NORMAL > or = 60 mg/dl - LO W CARDIOVASCULAR RISK <40 mg/dl - HIGH CARDIOVASCULAR RISK Normal [facility] Comment on above: Performed By: #### U CLINT, CMP, LIPID, DBIL, PHOS, MG #### [facility] [address] [address] [address] Brea Causey LDL CALC NORMAL SEE BELOW Normal [facility] Comment on above: Result Comment: <100 mg/dl OPTIMAL 100 - 129 mg/dl NEAR OR ABOVE OPTIMAL 130 - 159 mg/dl BORDERLINE HIGH 160 - 189 mg/dl HIGH >190 mg/dl VERY HIGH Performed By: #### U CLINT, CMP, LIPID, DBIL, PHOS, MG #### [facility] [address] [address] [address] Brea Causey Triglyceride [Mass/Vol] 53 mg/dL Normal <=150 [facility] Comment on above: Performed By: #### U CLINT, CMP, LIPID, DBIL, PHOS, MG #### [facility] [address] [address] [address] Brea Causey VLDL CALC 10.6 mg/dL Normal [facility] Comment on above: Performed By: #### U CLINT, CMP, LIPID, DBIL, PHOS, MG #### [facility] [address] [address] [address] Brea Causey MAGNESIUMon 08-01-2022 Magnesium [Mass/Vol] 1.5 mg/dL Critically low 1.8-2.4 [facility] Comment on above: Performed By: #### U CLINT, CMP, LIPID, DBIL, PHOS, MG #### [facility] [address] [place] [address] Dr. Brea Causey PHOSPHORUSon 08-01-2022 Phosphate [Mass/Vol] 3.8 mg/dL Normal 2.6-4.7 [facility] Comment on above: Performed By: #### U CLINT, CMP, LIPID, DBIL, PHOS, MG #### [facility] [address] [place] [address] Dr. Brea Causey PROF 14(COMP METB)on 023 Albumin [Mass/Vol] 4.1 g/dL Normal 3.4-5.0 [facility] Comment on above: Performed By: #### U CLINT, CMP, LIPID, DBIL, PHOS, MG #### [facility] [address] [place] [address] Dr. Brea Causey Albumin/Globulin [Mass ratio] 1.3 {ratio} Normal [facility] Comment on above: Performed By: #### U CLINT, CMP, LIPID, DBIL, PHOS, MG #### [facility] [address] [place] [address] Dr. Brea Causey ALP [Catalytic activity/Vol] 197 U/L Critically high 46-116 [facility] Comment on above: Performed By: #### U CLINT, CMP, LIPID, DBIL, PHOS, MG #### [facility] [address] [place] [address] Dr. Brea Causey ALT [Catalytic activity/Vol] 26 U/L Normal 16-63 [facility] Comment on above: Performed By: #### U CLINT, CMP, LIPID, DBIL, PHOS, MG #### [facility] [address] [place] [address] Dr. Brea Causey Anion gap [Moles/Vol] 12.6 mmol/L Normal [facility] Comment on above: Performed By: #### U CLINT, CMP, LIPID, DBIL, PHOS, MG #### [facility] [address] [place] [address] Dr. Brea Causey AST [Catalytic activity/Vol] 20 U/L Normal 15-37 [facility] Comment on above: Performed By: #### U CLINT, CMP, LIPID, DBIL, PHOS, MG #### [facility] [address] [address] [address] Brea Causey Bilirubin [Mass/Vol] 0.4 mg/dL Normal 0.2-1.0 [facility] Comment on above: Performed By: #### U CLINT, CMP, LIPID, DBIL, PHOS, MG #### [facility] [address] [address] [address] Brea Causey Calcium [Mass/Vol] 7.9 mg/dL Critically low 8.5-10.1 [facility] Comment on above: Performed By: #### U CLINT, CMP, LIPID, DBIL, PHOS, MG #### [facility] [address] [address] [address] Brea Causey Chloride [Moles/Vol] 97 mmol/L Critically low 98-107 [facility] Comment on above: Performed By: #### U CLINT, CMP, LIPID, DBIL, PHOS, MG #### [facility] [address] [place] [address] Dr. Brea Causey CO2 [Moles/Vol] 28.9 mmol/L Normal 21.0-32.0 [facility] Comment on above: Performed By: #### U CLINT, CMP, LIPID, DBIL, PHOS, MG #### [facility] [address] [place] [address] Dr. Brea Causey Creatinine [Mass/Vol] 0.98 mg/dL Normal 0.70-1.30 [facility] Comment on above: Performed By: #### U CLINT, CMP, LIPID, DBIL, PHOS, MG #### [facility] [address] [place] [address] Dr. Brea Causey EGFR-AF LITHUANIAN >60 Normal >=60 [facility] Comment on above: Performed By: #### U CLINT, CMP, LIPID, DBIL, PHOS, MG #### [facility] [address] [place] [address] Dr. Brea Causey EGFR-NON AF LITHUANIAN >60 Normal >=60 [facility] Comment on above: Performed By: #### U CLINT, CMP, LIPID, DBIL, PHOS, MG #### [facility] [address] [address] [address] Brea Causey Globulin (S) [Mass/Vol] 3.2 g/dL Normal [facility] Comment on above: Performed By: #### U CLINT, CMP, LIPID, DBIL, PHOS, MG #### [facility] [address] [place] [address] Dr. Brea Causey Glucose [Mass/Vol] 174 mg/dL Critically high 74-106 [facility] Comment on above: Performed By: #### U CLINT, CMP, LIPID, DBIL, PHOS, MG #### [facility] [address] [place] [address] Dr. Brea Causey Potassium [Moles/Vol] 4.5 mmol/L Normal 3.5-5.1 [facility] Comment on above: Performed By: #### U CLINT, CMP, LIPID, DBIL, PHOS, MG #### [facility] [address] [place] [address] Dr. Brea Causey Protein [Mass/Vol] 7.3 g/dL Normal 6.4-8.2 [facility] Comment on above: Performed By: #### U CLINT, CMP, LIPID, DBIL, PHOS, MG #### [facility] [address] [place] [address] Dr. Brea Causey Sodium [Moles/Vol] 134 mmol/L Critically low 136-145 [facility] Comment on above: Performed By: #### U CLINT, CMP, LIPID, DBIL, PHOS, MG #### [facility] [address] [place] [address] Dr. Brea Causey Urea nitrogen [Mass/Vol] 8.0 mg/dL Normal 7.0-18.0 [facility] Comment on above: Performed By: #### U CLINT, CMP, LIPID, DBIL, PHOS, MG #### [facility] [address] [place] [address] Dr. Brea Causey Urea nitrogen/Creatinine [Mass ratio] 8.2 mg/mg Normal [facility] Comment on above: Performed By: #### U CLINT, CMP, LIPID, DBIL, PHOS, MG #### [facility] [address] [place] [address] Dr. Brea Causey URIC ACID SERUMon 08-01-2022 Urate [Mass/Vol] 5.8 mg/dL Normal 3.5-7.2 [facility] Comment on above: Performed By: #### U CLINT, CMP, LIPID, DBIL, PHOS, MG #### [facility] [address] [place] [address] Dr. Brea Causey FK506 (TACROLIMUS) WHOLE BLO ODon 07-07-2022 Tacrolimus (FK506), Blood 3.6 ng/mL Normal 2.0-20.0 [facility] Comment on above: Result Comment: Trou gh (immediately following transplant) 15.0 . Trough (steady state, 2 weeks or more after transplant): 3.0 - 8.0 . Performed by LC-MS/MS technology. Performed By: #### C BC #### [facility] [address] [place] [address] Dr. Brea Causey BILIRUBIN CONJUGATED (DIRECT )on 07-04-2022 BILI, CONJUGATED 0.1 mg/dL Normal 0.0-0.2 [facility] Comment on above: Performed By: #### B KVIRUS #### [facility] [address] [place] [address] Dr. Brea Causey CBC AUTO DIFFon 07-04-2022 BASO # 0.0 103/ul Normal 0.0-0.1 [facility] Comment on above: Performed By: #### U CLINT, CMP, LIPID, DBIL, PHOS, MG #### [facility] [address] [place] [address] Dr. Brea Causey Basophils/100 WBC (Bld) 0.5 % Normal 0.2-2.0 [facility] Comment on above: Performed By: #### U CLINT, CMP, LIPID, DBIL, PHOS, MG #### [facility] [address] [place] [address] Dr. Brea Causey EO # 0.2 103/ul Normal 0.0-0.7 [facility] Comment on above: Performed By: #### U CLINT, CMP, LIPID, DBIL, PHOS, MG #### [facility] [address] [address] [address] Brea Causey Eosinophils/100 WBC (Bld) 2.6 % Normal 0.9-7.0 [facility] Comment on above: Performed By: #### U CLINT, CMP, LIPID, DBIL, PHOS, MG #### [facility] [address] [place] [address] Dr. Brea Causey Erythrocyte distribution width (RBC) [Ratio] 13.3 % Normal 11.0-15.0 [facility] Comment on above: Performed By: #### U CLINT, CMP, LIPID, DBIL, PHOS, MG #### [facility] [address] [place] [address] Dr. Brea Causey Hematocrit (Bld) [Volume fraction] 37.2 % Critically low 42.0-54.0 [facility] Comment on above: Performed By: #### U CLINT, CMP, LIPID, DBIL, PHOS, MG #### [facility] [address] [place] [address] Dr. Brea Causey Hemoglobin (Bld) [Mass/Vol] 12.4 g/dL Critically low 14.0-18.0 [facility] Comment on above: Performed By: #### U CLINT, CMP, LIPID, DBIL, PHOS, MG #### [facility] [address] [place] [address] Dr. Brea Causey IG # 0.09 10e3/ul Critically high 0.00-0.03 [facility] Comment on above: Performed By: #### U CLINT, CMP, LIPID, DBIL, PHOS, MG #### [facility] [address] [place] [address] Dr. Brea Causey IG % 1.4 % Critically high 0.0-0.5 [facility] Comment on above: Performed By: #### U CLINT, CMP, LIPID, DBIL, PHOS, MG #### [facility] [address] [address] [address] Brea Causey LYMPH # 1.0 103/ul Critically low 1.2-3.8 [facility] Comment on above: Performed By: #### U CLINT, CMP, LIPID, DBIL, PHOS, MG #### [facility] [address] [address] [address] Brea Causey Lymphocytes/100 WBC (Bld) 15.2 % Critically low 20.5-60.0 [facility] Comment on above: Performed By: #### U CLINT, CMP, LIPID, DBIL, PHOS, MG #### [facility] [address] [address] [address] Brea Causey MANUAL DIFF REQ NO Normal [facility] Comment on above: Performed By: #### U CLINT, CMP, LIPID, DBIL, PHOS, MG #### [facility] [address] [place] [address] Dr. Brea Causey MCH (RBC) [Entitic mass] 28.8 pg Normal 25.9-34.0 [facility] Comment on above: Performed By: #### U CLINT, CMP, LIPID, DBIL, PHOS, MG #### [facility] [address] [place] [address] Dr. Brea Causey MCHC (RBC) [Mass/Vol] 33.3 g/dL Normal 29.9-35.2 [facility] Comment on above: Performed By: #### U CLINT, CMP, LIPID, DBIL, PHOS, MG #### [facility] [address] [place] [address] Dr. Brea Causey MCV (RBC) [Entitic vol] 86.5 fL Normal 80.0-94.0 [facility] Comment on above: Performed By: #### U CLINT, CMP, LIPID, DBIL, PHOS, MG #### [facility] [address] [place] [address] Dr. Brea Causey MONO # 0.7 103/ul Normal 0.3-0.8 [facility] Comment on above: Performed By: #### U CLINT, CMP, LIPID, DBIL, PHOS, MG #### [facility] [address] [address] [address] Brea Causey Monocytes/100 WBC (Bld) 10.0 % Normal 1.7-12.0 [facility] Comment on above: Performed By: #### U CLINT, CMP, LIPID, DBIL, PHOS, MG #### [facility] [address] [address] [address] Brea Causey NEUT # 4.6 103/ul Normal 1.4-6.5 [facility] Comment on above: Performed By: #### U CLINT, CMP, LIPID, DBIL, PHOS, MG #### [facility] [address] [address] [address] Brea Causey Neutrophils/100 WBC (Bld) 70.3 % Normal 43.0-75.0 [facility] Comment on above: Performed By: #### U CLINT, CMP, LIPID, DBIL, PHOS, MG #### [facility] [address] [address] [address] Brea Causey Platelet mean volume (Bld) [Entitic vol] 8.8 fL Critically low 9.5-13.5 [facility] Comment on above: Performed By: #### U CLINT, CMP, LIPID, DBIL, PHOS, MG #### [facility] [address] [address] [address] Brea Causey PLT 240 103/ul Normal 150-450 [facility] Comment on above: Performed By: #### U CLINT, CMP, LIPID, DBIL, PHOS, MG #### [facility] [address] [place] [address] Dr. Brea Causey RBC 4.30 106/ul Critically low 4.70-6.10 [facility] Comment on above: Performed By: #### U CLINT, CMP, LIPID, DBIL, PHOS, MG #### [facility] [address] [address] [address] Brea Causey WBC 6.5 103/ul Normal 4.0-11.0 [facility] Comment on above: Performed By: #### U CLINT, CMP, LIPID, DBIL, PHOS, MG #### [facility] [address] [address] [address] Brea Causey LIPID PROFILEon 07-04-2022 CHOL-HDL RATIO NORM SEE BELOW Normal [facility] Comment on above: Result Comment: 3.3 - 4.4 LOW RISK 4.4 - 7.1 AVERAGE RISK 7.1 - 11.0 MODERATE RISK >11.0 HIGH RISK Performed By: #### U CLINT, CMP, LIPID, DBIL, PHOS, MG #### [facility] [address] [address] [address] Brea Causey Cholesterol [Mass/Vol] 86 mg/dL Normal <=200 [facility] Comment on above: Performed By: #### U CLINT, CMP, LIPID, DBIL, PHOS, MG #### [facility] [address] [place] [address] Dr. Brea Causey Cholesterol in HDL [Mass/Vol] 44 mg/dL Normal 40-60 [facility] Comment on above: Performed By: #### U CLINT, CMP, LIPID, DBIL, PHOS, MG #### [facility] [address] [address] [address] Brea Causey Cholesterol in LDL [Mass/Vol] 28.0 mg/dL Normal [facility] Comment on above: Performed By: #### U CLINT, CMP, LIPID, DBIL, PHOS, MG #### [facility] [address] [place] [address] Dr. Brea Causey Cholesterol.total/Cho lesterol in HDL [Mass ratio] 2.0 {ratio} Normal [facility] Comment on above: Performed By: #### U CLINT, CMP, LIPID, DBIL, PHOS, MG #### [facility] [address] [place] [address] Dr. Brea Causey HDL NORMAL > or = 60 mg/dl - LO W CARDIOVASCULAR RISK <40 mg/dl - HIGH CARDIOVASCULAR RISK Normal [facility] Comment on above: Performed By: #### U CLINT, CMP, LIPID, DBIL, PHOS, MG #### [facility] [address] [place], [place] [id number] Dr. Brea Causey LDL CALC NORMAL SEE BELOW Normal [facility] Comment on above: Result Comment: <100 mg/dl OPTIMAL 100 - 129 mg/dl NEAR OR ABOVE OPTIMAL 130 - 159 mg/dl BORDERLINE HIGH 160 - 189 mg/dl HIGH >190 mg/dl VERY HIGH Performed By: #### U CLINT, CMP, LIPID, DBIL, PHOS, MG #### [facility] [address] [address] [address] Brea Causey Triglyceride [Mass/Vol] 70 mg/dL Normal <=150 [facility] Comment on above: Performed By: #### U CLINT, CMP, LIPID, DBIL, PHOS, MG #### [facility] [address] [place] [address] Dr. Brea Causey VLDL CALC 14.0 mg/dL Normal [facility] Comment on above: Performed By: #### U CLINT, CMP, LIPID, DBIL, PHOS, MG #### [facility] [address] [place] [address] Dr. Brea Causey MAGNESIUMon 07-04-2022 Magnesium [Mass/Vol] 1.4 mg/dL Critically low 1.8-2.4 [facility] Comment on above: Performed By: #### U CLINT, CMP, LIPID, DBIL, PHOS, MG #### [facility] [address] [place] [address] Dr. Brea Causey PHOSPHORUSon 07-04-2022 Phosphate [Mass/Vol] 4.1 mg/dL Normal 2.6-4.7 [facility] Comment on above: Performed By: #### U CLINT, CMP, LIPID, DBIL, PHOS, MG #### [facility] [address] [place] [address] Dr. Brea Causey PROF 14(COMP METB)on 023 Albumin [Mass/Vol] 4.0 g/dL Normal 3.4-5.0 [facility] Comment on above: Performed By: #### B KVIRUS #### [facility] [address] [place] [address] Dr. Brea Causey Albumin/Globulin [Mass ratio] 1.3 {ratio} Normal [facility] Comment on above: Performed By: #### B KVIRUS #### [facility] [address] [address] [address] Brea Causey ALP [Catalytic activity/Vol] 212 U/L Critically high 46-116 [facility] Comment on above: Performed By: #### B KVIRUS #### [facility] [address] [address] [address] Brea Causey ALT [Catalytic activity/Vol] 31 U/L Normal 16-63 [facility] Comment on above: Performed By: #### B KVIRUS #### [facility] [address] [address] [address] Brea Causey Anion gap [Moles/Vol] 11.9 mmol/L Normal [facility] Comment on above: Performed By: #### B KVIRUS #### [facility] [address] [place] [address] Dr. Brea Causey AST [Catalytic activity/Vol] 21 U/L Normal 15-37 [facility] Comment on above: Performed By: #### B KVIRUS #### [facility] [address] [address] [address] Brea Causey Bilirubin [Mass/Vol] 0.3 mg/dL Normal 0.2-1.0 [facility] Comment on above: Performed By: #### B KVIRUS #### [facility] [address] [address] [address] Brea Causey Calcium [Mass/Vol] 8.1 mg/dL Critically low 8.5-10.1 [facility] Comment on above: Performed By: #### B KVIRUS #### [facility] [address] [address] [address] Brea Causey Chloride [Moles/Vol] 97 mmol/L Critically low 98-107 [facility] Comment on above: Performed By: #### B KVIRUS #### [facility] [address] [place] [address] Dr. Brea Causey CO2 [Moles/Vol] 26.8 mmol/L Normal 21.0-32.0 [facility] Comment on above: Performed By: #### B KVIRUS #### [facility] [address] [address] [address] Brea Causey Creatinine [Mass/Vol] 0.99 mg/dL Normal 0.70-1.30 [facility] Comment on above: Performed By: #### B KVIRUS #### [facility] [address] [place] [address] Dr. Brea Causey EGFR-AF LITHUANIAN >60 Normal >=60 [facility] Comment on above: Performed By: #### B KVIRUS #### [facility] [address] [place] [address] Dr. Brea Causey EGFR-NON AF LITHUANIAN >60 Normal >=60 [facility] Comment on above: Performed By: #### B KVIRUS #### [facility] [address] [place] [address] Dr. Brea Causey Globulin (S) [Mass/Vol] 3.2 g/dL Normal [facility] Comment on above: Performed By: #### B KVIRUS #### [facility] [address] [place] [address] Dr. Brea Causey Glucose [Mass/Vol] 169 mg/dL Critically high 74-106 [facility] Comment on above: Performed By: #### B KVIRUS #### [facility] [address] [place] [address] Dr. Brea Causey Potassium [Moles/Vol] 4.7 mmol/L Normal 3.5-5.1 [facility] Comment on above: Performed By: #### B KVIRUS #### [facility] [address] [place] [address] Dr. Brea Causey Protein [Mass/Vol] 7.2 g/dL Normal 6.4-8.2 [facility] Comment on above: Performed By: #### B KVIRUS #### [facility] [address] [place] [address] Dr. Brea Causey Sodium [Moles/Vol] 131 mmol/L Critically low 136-145 [facility] Comment on above: Performed By: #### B KVIRUS #### [facility] [address] [address] [address] Brea Casuey Urea nitrogen [Mass/Vol] 9.0 mg/dL Normal 7.0-18.0 [facility] Comment on above: Performed By: #### B KVIRUS #### [facility] [address] [address] [address] Brea Causey Urea nitrogen/Creatinine [Mass ratio] 9.1 mg/mg Normal [facility] Comment on above: Performed By: #### B KVIRUS #### [facility] [address] [address] [address] Brea Causey URIC ACID SERUMon 07-04-2022 Urate [Mass/Vol] 6.1 mg/dL Normal 3.5-7.2 [facility] Comment on above: Performed By: #### U CLINT, CMP, LIPID, DBIL, PHOS, MG #### [facility] [address] [address] [address] Brea Causey TESTOSTERONE, FREE,DIRECT, T OTALon 05-28-2022 Free Testosterone(Direct) 5.9 pg/mL Critically low 6.6-18.1 [facility] Comment on above: Result Comment: Perf ormed at: BN Performed By: #### U CLINT, CMP, LIPID, DBIL, PHOS, MG #### [facility] [address] [place] [address] Dr. Brea Causey Testosterone [Mass/Vol] 513 ng/dL Normal 264-916 [facility] Comment on above: Result Comment: Adul t male reference interval is based on a population of healthy nonobese males (BMI <30) between 19 and 39 years old. Steven, et.al. JCEM 2017,102;5840-1804. PMID: [id number]. Performed at: CB Performed By: #### U CLINT, CMP, LIPID, DBIL, PHOS, MG #### [facility] [address] [id number] [address] Brae Causey FK506 (TACROLIMUS) WHOLE BLO ODon 05-26-2022 Tacrolimus (FK506), Blood 3.9 ng/mL Normal 2.0-20.0 [facility] Comment on above: Result Comment: Trou gh (immediately following transplant) 15.0 . Trough (steady state, 2 weeks or more after transplant): 3.0 - 8.0 . Performed by LC-MS/MS technology. Performed By: #### B KVIRUS #### [facility] [address] [place] [address] Dr. Brea Causey BK VIRUS PCR QUANTon 023 BKV DNA QUANT PCR PLASMA Negative Normal Negative [facility] Comment on above: Result Comment: No B K DNA detected. . The linear range of the assay is 22 - 100,000,000 IU/mL. Performed By: #### U CLINT, CMP, LIPID, DBIL, PHOS, MG #### [facility] [address] [place] [address] Dr. Brea aCusey Log10 BKV DNA Plasma Normal [facility] Comment on above: Performed By: #### U CLINT, CMP, LIPID, DBIL, PHOS, MG #### [facility] [address] [place] [address] Dr. Brea Causey BILIRUBIN CONJUGATED (DIRECT )on 05-23-2022 BILI, CONJUGATED 0.2 mg/dL Normal 0.0-0.2 [facility] Comment on above: Performed By: #### C BC #### [facility] [address] [place] [address] Dr. Brea Causey CBC AUTO DIFFon 05-23-2022 BASO # 0.0 103/ul Normal 0.0-0.1 [facility] Comment on above: Performed By: #### B KVIRUS #### [facility] [address] [place] [address] Dr. Brea Causey Basophils/100 WBC (Bld) 0.6 % Normal 0.2-2.0 [facility] Comment on above: Performed By: #### B KVIRUS #### [facility] [address] [place] [address] Dr. Brea Causey EO # 0.1 103/ul Normal 0.0-0.7 [facility] Comment on above: Performed By: #### B KVIRUS #### [facility] [address] [address] [address] Brea Causey Eosinophils/100 WBC (Bld) 1.7 % Normal 0.9-7.0 [facility] Comment on above: Performed By: #### B KVIRUS #### [facility] [address] [address] [address] Brea Causey Erythrocyte distribution width (RBC) [Ratio] 13.4 % Normal 11.0-15.0 [facility] Comment on above: Performed By: #### B KVIRUS #### [facility] [address] [place] [address] Dr. Brea Causey Hematocrit (Bld) [Volume fraction] 38.8 % Critically low 42.0-54.0 [facility] Comment on above: Performed By: #### B KVIRUS #### [facility] [address] [place] [address] Dr. Brea Causey Hemoglobin (Bld) [Mass/Vol] 12.4 g/dL Critically low 14.0-18.0 [facility] Comment on above: Performed By: #### B KVIRUS #### [facility] [address] [place] [address] Dr. Brea Causey IG # 0.07 10e3/ul Critically high 0.00-0.03 [facility] Comment on above: Performed By: #### B KVIRUS #### [facility] [address] [place] [address] Dr. Brea Causey IG % 1.1 % Critically high 0.0-0.5 [facility] Comment on above: Performed By: #### B KVIRUS #### [facility] [address] [place] [address] Dr. Brea Causey LYMPH # 0.9 103/ul Critically low 1.2-3.8 [facility] Comment on above: Performed By: #### B KVIRUS #### [facility] [address] [place] [address] Dr. Brea Causey Lymphocytes/100 WBC (Bld) 14.1 % Critically low 20.5-60.0 [facility] Comment on above: Performed By: #### B KVIRUS #### [facility] [address] [place] [address] Dr. Brea Causey MANUAL DIFF REQ NO Normal [facility] Comment on above: Performed By: #### B KVIRUS #### [facility] [address] [place] [address] Dr. Brea Causey MCH (RBC) [Entitic mass] 29.3 pg Normal 25.9-34.0 [facility] Comment on above: Performed By: #### B KVIRUS #### [facility] [address] [place] [address] Dr. Brea Causey MCHC (RBC) [Mass/Vol] 32.0 g/dL Normal 29.9-35.2 [facility] Comment on above: Performed By: #### B KVIRUS #### [facility] [address] [place] [address] Dr. Brea Causey MCV (RBC) [Entitic vol] 91.7 fL Normal 80.0-94.0 [facility] Comment on above: Performed By: #### B KVIRUS #### [facility] [address] [place] [address] Dr. Brea Causey MONO # 0.7 103/ul Normal 0.3-0.8 [facility] Comment on above: Performed By: #### B KVIRUS #### [facility] [address] [place] [address] Dr. Brea Causey Monocytes/100 WBC (Bld) 10.0 % Normal 1.7-12.0 [facility] Comment on above: Performed By: #### B KVIRUS #### [facility] [address] [place] [address] Dr. Brea Causey NEUT # 4.7 103/ul Normal 1.4-6.5 [facility] Comment on above: Performed By: #### B KVIRUS #### [facility] [address] [place] [address] Dr. Brea Casuey Neutrophils/100 WBC (Bld) 72.5 % Normal 43.0-75.0 [facility] Comment on above: Performed By: #### B KVIRUS #### [facility] [address] [address] [address] Brea Causey Platelet mean volume (Bld) [Entitic vol] 9.4 fL Critically low 9.5-13.5 [facility] Comment on above: Performed By: #### B KVIRUS #### [facility] [address] [address] [address] Brea Causey PLT 256 103/ul Normal 150-450 [facility] Comment on above: Performed By: #### B KVIRUS #### [facility] [address] [address] [address] Brea Causey RBC 4.23 106/ul Critically low 4.70-6.10 [facility] Comment on above: Performed By: #### B KVIRUS #### [facility] [address] [place] [address] Dr. Brea Causey WBC 6.5 103/ul Normal 4.0-11.0 [facility] Comment on above: Performed By: #### B KVIRUS #### [facility] [address] [address] [address] Brea Causey GLYCOHEMOGLOBIN A1Con 2022 ADA RECOMMENDATION SEE BELOW Normal [facility] Comment on above: Result Comment: ADA RECOMMENDED LIMIT 4.0 - 6.0 ADA THERAPEUTIC TARGET < 7.0 ACTION SUGGESTED > 7.0 Performed By: #### U CLINT, CMP, LIPID, DBIL, PHOS, MG #### [facility] [address] [address] [address] Brea Causey Glucose [Mass/Vol] 160 mg/dL Normal [facility] Comment on above: Performed By: #### U CLINT, CMP, LIPID, DBIL, PHOS, MG #### [facility] [address] [address] [address] Brea Causey HbA1c (Bld) [Mass fraction] 7.2 % Critically high 4.5-6.2 [facility] Comment on above: Performed By: #### U CLINT, CMP, LIPID, DBIL, PHOS, MG #### [facility] [id number] Brea Causey LIPID PROFILEon 05-23-2022 CHOL-HDL RATIO NORM SEE BELOW Normal [facility] Comment on above: Result Comment: 3.3 - 4.4 LOW RISK 4.4 - 7.1 AVERAGE RISK 7.1 - 11.0 MODERATE RISK >11.0 HIGH RISK Performed By: #### C BC #### [facility] [address] [address] [address] Brea Causey Cholesterol [Mass/Vol] 87 mg/dL Normal <=200 [facility] Comment on above: Performed By: #### C BC #### [facility] [address] [address] [address] Brea Causey Cholesterol in HDL [Mass/Vol] 54 mg/dL Normal 40-60 [facility] Comment on above: Performed By: #### C BC #### [facility] [address] [address] [address] Brea Causey Cholesterol in LDL [Mass/Vol] 24.6 mg/dL Normal [facility] Comment on above: Performed By: #### C BC #### [facility] [address] [address] [address] Brea Causey Cholesterol.total/Cho lesterol in HDL [Mass ratio] 1.6 {ratio} Normal [facility] Comment on above: Performed By: #### C BC #### [facility] [address] [address] [address] Brea Causey HDL NORMAL > or = 60 mg/dl - LO W CARDIOVASCULAR RISK <40 mg/dl - HIGH CARDIOVASCULAR RISK Normal [facility] Comment on above: Performed By: #### C BC #### [facility] [id number] Brea Causey LDL CALC NORMAL SEE BELOW Normal [facility] Comment on above: Result Comment: <100 mg/dl OPTIMAL 100 - 129 mg/dl NEAR OR ABOVE OPTIMAL 130 - 159 mg/dl BORDERLINE HIGH 160 - 189 mg/dl HIGH >190 mg/dl VERY HIGH Performed By: #### C BC #### [facility] [address] [place] [address] Dr. Brea Causey Triglyceride [Mass/Vol] 42 mg/dL Normal <=150 [facility] Comment on above: Performed By: #### C BC #### [facility] [address] [place] [address] Dr. Brea Causey VLDL CALC 8.4 mg/dL Normal [facility] Comment on above: Performed By: #### C BC #### [facility] [address] [place] [address] Dr. Brea Causey MAGNESIUMon 05-23-2022 Magnesium [Mass/Vol] 1.4 mg/dL Critically low 1.8-2.4 [facility] Comment on above: Performed By: #### C BC #### [facility] [address] [place] [address] Dr. Brea Causey PHOSPHORUSon 05-23-2022 Phosphate [Mass/Vol] 3.6 mg/dL Normal 2.6-4.7 [facility] Comment on above: Performed By: #### C BC #### [facility] [address] [place] [address] Dr. Brea Causey PROF 14(COMP METB)on 023 Albumin [Mass/Vol] 3.9 g/dL Normal 3.4-5.0 [facility] Comment on above: Performed By: #### C BC #### [facility] [address] [place] [address] Dr. Brea Causey Albumin/Globulin [Mass ratio] 1.2 {ratio} Normal [facility] Comment on above: Performed By: #### C BC #### [facility] [address] [place] [address] Dr. Brea Causey ALP [Catalytic activity/Vol] 190 U/L Critically high 46-116 [facility] Comment on above: Performed By: #### C BC #### [facility] [address] [place] [address] Dr. Brea Causey ALT [Catalytic activity/Vol] 26 U/L Normal 16-63 [facility] Comment on above: Performed By: #### C BC #### [facility] [address] [address] [address] Brea Causey Anion gap [Moles/Vol] 13.1 mmol/L Normal [facility] Comment on above: Performed By: #### C BC #### [facility] [address] [place] [address] Dr. Brea Causey AST [Catalytic activity/Vol] 18 U/L Normal 15-37 [facility] Comment on above: Performed By: #### C BC #### [facility] [address] [address] [address] Brea Causey Bilirubin [Mass/Vol] 0.4 mg/dL Normal 0.2-1.0 [facility] Comment on above: Performed By: #### C BC #### [facility] [address] [place] [address] Dr. Brea Causey Calcium [Mass/Vol] 7.8 mg/dL Critically low 8.5-10.1 [facility] Comment on above: Performed By: #### C BC #### [facility] [address] [place] [address] Dr. Brea Causey Chloride [Moles/Vol] 95 mmol/L Critically low 98-107 [facility] Comment on above: Performed By: #### C BC #### [facility] [address] [place] [address] Dr. Brea Causey CO2 [Moles/Vol] 28.8 mmol/L Normal 21.0-32.0 [facility] Comment on above: Performed By: #### C BC #### [facility] [address] [place] [address] Dr. Brea Causey Creatinine [Mass/Vol] 1.03 mg/dL Normal 0.70-1.30 [facility] Comment on above: Performed By: #### C BC #### [facility] [address] [place] [address] Dr. Brea Causey EGFR-AF LITHUANIAN >60 Normal >=60 [facility] Comment on above: Performed By: #### C BC #### [facility] [address] [place] [address] Dr. Brea Causey EGFR-NON AF LITHUANIAN >60 Normal >=60 [facility] Comment on above: Performed By: #### C BC #### [facility] [address] [place] [address] Dr. Brea Causey Globulin (S) [Mass/Vol] 3.2 g/dL Normal [facility] Comment on above: Performed By: #### C BC #### [facility] [address] [address] [address] Brea Causey Glucose [Mass/Vol] 155 mg/dL Critically high 74-106 [facility] Comment on above: Performed By: #### C BC #### [facility] [address] [place] [address] Dr. Brea Causey Potassium [Moles/Vol] 4.9 mmol/L Normal 3.5-5.1 [facility] Comment on above: Performed By: #### C BC #### [facility] [address] [place] [address] Dr. Brea Causey Protein [Mass/Vol] 7.1 g/dL Normal 6.4-8.2 [facility] Comment on above: Performed By: #### C BC #### [facility] [address] [place] [address] Dr. Brea Causey Sodium [Moles/Vol] 132 mmol/L Critically low 136-145 [facility] Comment on above: Performed By: #### C BC #### [facility] [address] [place] [address] Dr. Brea Causey Urea nitrogen [Mass/Vol] 8.0 mg/dL Normal 7.0-18.0 [facility] Comment on above: Performed By: #### C BC #### [facility] [address] [place] [address] Dr. Brea Causey Urea nitrogen/Creatinine [Mass ratio] 7.8 mg/mg Normal [facility] Comment on above: Performed By: #### C BC #### [facility] [address] [place] [address] Dr. Brea Causey URIC ACID SERUMon 05-23-2022 Urate [Mass/Vol] 5.6 mg/dL Normal 3.5-7.2 [facility] Comment on above: Performed By: #### C BC #### [facility] [address] [place] [address] Dr. Brea Causey TESTOSTERONE, FREE,DIRECT, T OTALon 05-03-2022 Free Testosterone(Direct) 7.4 pg/mL Normal 6.6-18.[address] [facility] Comment on above: Result Comment: Perf ormed at: BN Performed By: #### U CLINT, CMP, LIPID, DBIL, PHOS, MG #### [facility] [address] [address] [address] Brea Causey Testosterone [Mass/Vol] 494 ng/dL Normal 264-916 [facility] Comment on above: Result Comment: Adul t male reference interval is based on a population of healthy nonobese males (BMI <30) between 19 and 39 years old. Steven et.al. JCEM 2017,102;4774-9164. PMID: [id number]. Performed at: CB Performed By: #### U CLINT, CMP, LIPID, DBIL, PHOS, MG #### [facility] [address] [place], [place] [id number] Dr. Brea Causey FK506 (TACROLIMUS) WHOLE BLO ODon 05-02-2022 Tacrolimus (FK506), Blood 4.3 ng/mL Normal 2.0-20.0 [facility] Comment on above: Result Comment: Trou gh (immediately following transplant) 15.0 . Trough (steady state, 2 weeks or more after transplant): 3.0 - 8.0 . Performed by LC-MS/MS technology. Performed By: #### C BC #### [facility] [address] [place], [place] [id number] Dr. Brea Causey BILIRUBIN CONJUGATED (DIRECT )on 04-30-2022 BILI, CONJUGATED 0.1 mg/dL Normal 0.0-0.2 [facility] Comment on above: Performed By: #### U CLINT, CMP, LIPID, DBIL, PHOS, MG #### [facility] [id number] Brea Causey CBC AUTO DIFFon 04-30-2022 BASO # 0.0 103/ul Normal 0.0-0.1 [facility] Comment on above: Performed By: #### U CLINT, CMP, LIPID, DBIL, PHOS, MG #### [facility] [address] [place] [address] Dr. Brea Causey Basophils/100 WBC (Bld) 0.5 % Normal 0.2-2.0 [facility] Comment on above: Performed By: #### U CLINT, CMP, LIPID, DBIL, PHOS, MG #### [facility] [address] [place] [address] Dr. Brea Causey EO # 0.1 103/ul Normal 0.0-0.7 [facility] Comment on above: Performed By: #### U CLINT, CMP, LIPID, DBIL, PHOS, MG #### [facility] [address] [place] [address] Dr. Brea Causey Eosinophils/100 WBC (Bld) 2.1 % Normal 0.9-7.0 [facility] Comment on above: Performed By: #### U CLINT, CMP, LIPID, DBIL, PHOS, MG #### [facility] [address] [place] [address] Dr. Brea Causey Erythrocyte distribution width (RBC) [Ratio] 13.2 % Normal 11.0-15.0 [facility] Comment on above: Performed By: #### U CLINT, CMP, LIPID, DBIL, PHOS, MG #### [facility] [address] [place] [address] Dr. Brea Causey Hematocrit (Bld) [Volume fraction] 37.0 % Critically low 42.0-54.0 [facility] Comment on above: Performed By: #### U CLINT, CMP, LIPID, DBIL, PHOS, MG #### [facility] [address] [place] [address] Dr. Brea Causey Hemoglobin (Bld) [Mass/Vol] 12.4 g/dL Critically low 14.0-18.0 [facility] Comment on above: Performed By: #### U CLINT, CMP, LIPID, DBIL, PHOS, MG #### [facility] [address] [address] [address] Brea Causey IG # 0.05 10e3/ul Critically high 0.00-0.03 [facility] Comment on above: Performed By: #### U CLINT, CMP, LIPID, DBIL, PHOS, MG #### [facility] [address] [place] [address] Dr. Brea Causey IG % 0.9 % Critically high 0.0-0.5 [facility] Comment on above: Performed By: #### U CLINT, CMP, LIPID, DBIL, PHOS, MG #### [facility] [address] [place] [address] Dr. Brea Causey LYMPH # 1.0 103/ul Critically low 1.2-3.8 [facility] Comment on above: Performed By: #### U CLINT, CMP, LIPID, DBIL, PHOS, MG #### [facility] [address] [place] [address] Dr. Brea Causey Lymphocytes/100 WBC (Bld) 16.4 % Critically low 20.5-60.0 [facility] Comment on above: Performed By: #### U CLINT, CMP, LIPID, DBIL, PHOS, MG #### [facility] [address] [place] [address] Dr. Brea Causey MANUAL DIFF REQ NO Normal [facility] Comment on above: Performed By: #### U CLINT, CMP, LIPID, DBIL, PHOS, MG #### [facility] [address] [place] [address] Dr. Brea Causey MCH (RBC) [Entitic mass] 29.0 pg Normal 25.9-34.0 [facility] Comment on above: Performed By: #### U CLINT, CMP, LIPID, DBIL, PHOS, MG #### [facility] [address] [place] [address] Dr. Brea Causey MCHC (RBC) [Mass/Vol] 33.5 g/dL Normal 29.9-35.2 [facility] Comment on above: Performed By: #### U CLINT, CMP, LIPID, DBIL, PHOS, MG #### [facility] [address] [place] [address] Dr. Brea Causey MCV (RBC) [Entitic vol] 86.7 fL Normal 80.0-94.0 [facility] Comment on above: Performed By: #### U CLINT, CMP, LIPID, DBIL, PHOS, MG #### [facility] [address] [place] [address] Dr. Brea Causey MONO # 0.7 103/ul Normal 0.3-0.8 [facility] Comment on above: Performed By: #### U CLINT, CMP, LIPID, DBIL, PHOS, MG #### [facility] [address] [place] [address] Dr. Brea Causey Monocytes/100 WBC (Bld) 11.6 % Normal 1.7-12.0 [facility] Comment on above: Performed By: #### U CLINT, CMP, LIPID, DBIL, PHOS, MG #### [facility] [address] [place] [address] Dr. Brea Causey NEUT # 4.0 103/ul Normal 1.4-6.5 [facility] Comment on above: Performed By: #### U CLINT, CMP, LIPID, DBIL, PHOS, MG #### [facility] [address] [place] [address] Dr. Brea Causey Neutrophils/100 WBC (Bld) 68.5 % Normal 43.0-75.0 [facility] Comment on above: Performed By: #### U CLINT, CMP, LIPID, DBIL, PHOS, MG #### [facility] [address] [place] [address] Dr. Brea Causey Platelet mean volume (Bld) [Entitic vol] 9.2 fL Critically low 9.5-13.5 [facility] Comment on above: Performed By: #### U CLINT, CMP, LIPID, DBIL, PHOS, MG #### [facility] [address] [place] [address] Dr. Brea Causey PLT 231 103/ul Normal 150-450 [facility] Comment on above: Performed By: #### U CLINT, CMP, LIPID, DBIL, PHOS, MG #### [facility] [address] [address] [address] Brea Causey RBC 4.27 106/ul Critically low 4.70-6.10 [facility] Comment on above: Performed By: #### U CLINT, CMP, LIPID, DBIL, PHOS, MG #### [facility] [address] [address] [address] Brea Causey WBC 5.9 103/ul Normal 4.0-11.0 [facility] Comment on above: Performed By: #### U CLINT, CMP, LIPID, DBIL, PHOS, MG #### [facility] [address] [place] [address] Dr. Brea Causey LIPID PROFILEon 04-30-2022 CHOL-HDL RATIO NORM SEE BELOW Normal [facility] Comment on above: Result Comment: 3.3 - 4.4 LOW RISK 4.4 - 7.1 AVERAGE RISK 7.1 - 11.0 MODERATE RISK >11.0 HIGH RISK Performed By: #### U CLINT, CMP, LIPID, DBIL, PHOS, MG #### [facility] [address] [place] [address] Dr. Brea Causey Cholesterol [Mass/Vol] 78 mg/dL Normal <=200 [facility] Comment on above: Performed By: #### U CLINT, CMP, LIPID, DBIL, PHOS, MG #### [facility] [address] [address] [address] Brea Causey Cholesterol in HDL [Mass/Vol] 41 mg/dL Normal 40-60 [facility] Comment on above: Performed By: #### U CLINT, CMP, LIPID, DBIL, PHOS, MG #### [facility] [address] [place] [address] Dr. Brea Causey Cholesterol in LDL [Mass/Vol] 17.8 mg/dL Normal [facility] Comment on above: Performed By: #### U CLINT, CMP, LIPID, DBIL, PHOS, MG #### [facility] [address] [address] [address] Brea Causey Cholesterol.total/Cho lesterol in HDL [Mass ratio] 1.9 {ratio} Normal [facility] Comment on above: Performed By: #### U CLINT, CMP, LIPID, DBIL, PHOS, MG #### [facility] [address] [address] [address] Brea Causey HDL NORMAL > or = 60 mg/dl - LO W CARDIOVASCULAR RISK <40 mg/dl - HIGH CARDIOVASCULAR RISK Normal [facility] Comment on above: Performed By: #### U CLINT, CMP, LIPID, DBIL, PHOS, MG #### [facility] [address] [address] [address] Brea Causey LDL CALC NORMAL SEE BELOW Normal [facility] Comment on above: Result Comment: <100 mg/dl OPTIMAL 100 - 129 mg/dl NEAR OR ABOVE OPTIMAL 130 - 159 mg/dl BORDERLINE HIGH 160 - 189 mg/dl HIGH >190 mg/dl VERY HIGH Performed By: #### U CLINT, CMP, LIPID, DBIL, PHOS, MG #### [facility] [address] [address] [address] Brea Causey Triglyceride [Mass/Vol] 96 mg/dL Normal <=150 [facility] Comment on above: Performed By: #### U CLINT, CMP, LIPID, DBIL, PHOS, MG #### [facility] [address] [address] [address] Brea Causey VLDL CALC 19.2 mg/dL Normal [facility] Comment on above: Performed By: #### U CLINT, CMP, LIPID, DBIL, PHOS, MG #### [facility] [address] [address] [address] Brea Causey MAGNESIUMon 04-30-2022 Magnesium [Mass/Vol] 1.7 mg/dL Critically low 1.8-2.4 [facility] Comment on above: Performed By: #### U CLINT, CMP, LIPID, DBIL, PHOS, MG #### [facility] [address] [address] [address] Brea Causey PHOSPHORUSon 04-30-2022 Phosphate [Mass/Vol] 3.6 mg/dL Normal 2.6-4.7 [facility] Comment on above: Performed By: #### U CLINT, CMP, LIPID, DBIL, PHOS, MG #### [facility] [address] [place] [address] Dr. Brea Causey PROF 14(COMP METB)on 04-30- 022 Albumin [Mass/Vol] 4.0 g/dL Normal 3.4-5.0 [facility] Comment on above: Performed By: #### U CLINT, CMP, LIPID, DBIL, PHOS, MG #### [facility] [address] [place] [address] Dr. Brea Causey Albumin/Globulin [Mass ratio] 1.3 {ratio} Normal [facility] Comment on above: Performed By: #### U CLINT, CMP, LIPID, DBIL, PHOS, MG #### [facility] [address] [place] [address] Dr. Brea Causey ALP [Catalytic activity/Vol] 196 U/L Critically high 46-116 [facility] Comment on above: Performed By: #### U CLINT, CMP, LIPID, DBIL, PHOS, MG #### [facility] [address] [place] [address] Dr. Brea Causey ALT [Catalytic activity/Vol] 21 U/L Normal 16-63 [facility] Comment on above: Performed By: #### U CLINT, CMP, LIPID, DBIL, PHOS, MG #### [facility] [address] [place] [address] Dr. Brea Causey Anion gap [Moles/Vol] 10.5 mmol/L Normal [facility] Comment on above: Performed By: #### U CLINT, CMP, LIPID, DBIL, PHOS, MG #### [facility] [address] [place] [address] Dr. Brea Causey AST [Catalytic activity/Vol] 16 U/L Normal 15-37 [facility] Comment on above: Performed By: #### U CLINT, CMP, LIPID, DBIL, PHOS, MG #### [facility] [address] [place] [address] Dr. Brea Causey Bilirubin [Mass/Vol] 0.3 mg/dL Normal 0.2-1.0 [facility] Comment on above: Performed By: #### U CLINT, CMP, LIPID, DBIL, PHOS, MG #### [facility] [address] [address] [address] Brea Causey Calcium [Mass/Vol] 8.6 mg/dL Normal 8.5-10.1 [facility] Comment on above: Performed By: #### U CLINT, CMP, LIPID, DBIL, PHOS, MG #### [facility] [address] [address] [address] Brea Causey Chloride [Moles/Vol] 95 mmol/L Critically low 98-107 [facility] Comment on above: Performed By: #### U CLINT, CMP, LIPID, DBIL, PHOS, MG #### [facility] [address] [address] [address] Brea Causey CO2 [Moles/Vol] 30.9 mmol/L Normal 21.0-32.0 [facility] Comment on above: Performed By: #### U CLINT, CMP, LIPID, DBIL, PHOS, MG #### [facility] [address] [address] [address] Brea Causey Creatinine [Mass/Vol] 1.00 mg/dL Normal 0.70-1.30 [facility] Comment on above: Performed By: #### U CLINT, CMP, LIPID, DBIL, PHOS, MG #### [facility] [address] [place] [address] Dr. Brea Causey EGFR-AF LITHUANIAN >60 Normal >=60 [facility] Comment on above: Performed By: #### U CLINT, CMP, LIPID, DBIL, PHOS, MG #### [facility] [address] [address] [address] Brea Causey EGFR-NON AF LITHUANIAN >60 Normal >=60 [facility] Comment on above: Performed By: #### U CLINT, CMP, LIPID, DBIL, PHOS, MG #### [facility] [address] [place] [address] Dr. Brea Causey Globulin (S) [Mass/Vol] 3.2 g/dL Normal [facility] Comment on above: Performed By: #### U CLINT, CMP, LIPID, DBIL, PHOS, MG #### [facility] [address] [place] [address] Dr. Brea Causey Glucose [Mass/Vol] 160 mg/dL Critically high 74-106 [facility] Comment on above: Performed By: #### U CLINT, CMP, LIPID, DBIL, PHOS, MG #### [facility] [address] [place] [address] Dr. Brea Causey Potassium [Moles/Vol] 5.4 mmol/L Critically high 3.5-5.1 [facility] Comment on above: Performed By: #### U CLINT, CMP, LIPID, DBIL, PHOS, MG #### [facility] [address] [place] [address] Dr. Brea Causey Protein [Mass/Vol] 7.2 g/dL Normal 6.4-8.2 [facility] Comment on above: Performed By: #### U CLINT, CMP, LIPID, DBIL, PHOS, MG #### [facility] [address] [place] [address] Dr. Brea Causey Sodium [Moles/Vol] 131 mmol/L Critically low 136-145 [facility] Comment on above: Performed By: #### U CLINT, CMP, LIPID, DBIL, PHOS, MG #### [facility] [address] [place] [address] Dr. Brea Causey Urea nitrogen [Mass/Vol] 11.0 mg/dL Normal 7.0-18.0 [facility] Comment on above: Performed By: #### U CLINT, CMP, LIPID, DBIL, PHOS, MG #### [facility] [address] [place] [address] Dr. Brea Causey Urea nitrogen/Creatinine [Mass ratio] 11.0 mg/mg Normal [facility] Comment on above: Performed By: #### U CLINT, CMP, LIPID, DBIL, PHOS, MG #### [facility] [address] [place] [address] Dr. Brea Causey URIC ACID SERUMon 04-30-2022 Urate [Mass/Vol] 5.9 mg/dL Normal 3.5-7.2 [facility] Comment on above: Performed By: #### U CLINT, CMP, LIPID, DBIL, PHOS, MG #### [facility] [address] [place] [address] Dr. Brea Causey FK506 (TACROLIMUS) WHOLE BLO ODon 04-06-2022 Tacrolimus (FK506), Blood 3.0 ng/mL Normal 2.0-20.0 [facility] Comment on above: Result Comment: Trou gh (immediately following transplant) 15.0 . Trough (steady state, 2 weeks or more after transplant): 3.0 - 8.0 . Performed by LC-MS/MS technology. Performed By: #### U CLINT, CMP, LIPID, DBIL, PHOS, MG #### [facility] [address] [place] [address] Dr. Brea Causey BILIRUBIN CONJUGATED (DIRECT )on 04-03-2022 BILI, CONJUGATED 0.1 mg/dL Normal 0.0-0.2 [facility] Comment on above: Performed By: #### U CLINT, CMP, LIPID, DBIL, PHOS, MG #### [facility] [address] [place] [address] Dr. Brea Causey CBC AUTO DIFFon 04-03-2022 BASO # 0.0 103/ul Normal 0.0-0.1 [facility] Comment on above: Performed By: #### U CLINT, CMP, LIPID, DBIL, PHOS, MG #### [facility] [address] [place] [address] Dr. Brea Causey Basophils/100 WBC (Bld) 0.5 % Normal 0.2-2.0 [facility] Comment on above: Performed By: #### U CLINT, CMP, LIPID, DBIL, PHOS, MG #### [facility] [address] [place] [address] Dr. Brea Causey EO # 0.1 103/ul Normal 0.0-0.7 [facility] Comment on above: Performed By: #### U CLINT, CMP, LIPID, DBIL, PHOS, MG #### [facility] [address] [place] [address] Dr. Brea Causey Eosinophils/100 WBC (Bld) 2.5 % Normal 0.9-7.0 [facility] Comment on above: Performed By: #### U CLINT, CMP, LIPID, DBIL, PHOS, MG #### [facility] [address] [place] [address] Dr. Brea Causey Erythrocyte distribution width (RBC) [Ratio] 13.3 % Normal 11.0-15.0 [facility] Comment on above: Performed By: #### U CLINT, CMP, LIPID, DBIL, PHOS, MG #### [facility] [address] [place] [address] Dr. Brea Causey Hematocrit (Bld) [Volume fraction] 36.4 % Critically low 42.0-54.0 [facility] Comment on above: Performed By: #### U CLINT, CMP, LIPID, DBIL, PHOS, MG #### [facility] [address] [place] [address] Dr. Brea Causey Hemoglobin (Bld) [Mass/Vol] 12.3 g/dL Critically low 14.0-18.0 [facility] Comment on above: Performed By: #### U CLINT, CMP, LIPID, DBIL, PHOS, MG #### [facility] [address] [place] [address] Dr. Brea Causey IG # 0.03 10e3/ul Normal 0.00-0.03 [facility] Comment on above: Performed By: #### U CLINT, CMP, LIPID, DBIL, PHOS, MG #### [facility] [address] [place] [address] Dr. Brea Causey IG % 0.5 % Normal 0.0-0.5 [facility] Comment on above: Performed By: #### U CLINT, CMP, LIPID, DBIL, PHOS, MG #### [facility] [address] [place] [address] Dr. Brea Causey LYMPH # 0.9 103/ul Critically low 1.2-3.8 [facility] Comment on above: Performed By: #### U CLINT, CMP, LIPID, DBIL, PHOS, MG #### [facility] [address] [address] [address] Brea Causey Lymphocytes/100 WBC (Bld) 16.9 % Critically low 20.5-60.0 [facility] Comment on above: Performed By: #### U CLINT, CMP, LIPID, DBIL, PHOS, MG #### [facility] [address] [address] [address] Brea Causey MANUAL DIFF REQ NO Normal [facility] Comment on above: Performed By: #### U CLINT, CMP, LIPID, DBIL, PHOS, MG #### [facility] [address] [place] [address] Dr. Brea Causey MCH (RBC) [Entitic mass] 29.3 pg Normal 25.9-34.0 [facility] Comment on above: Performed By: #### U CLINT, CMP, LIPID, DBIL, PHOS, MG #### [facility] [address] [place] [address] Dr. Brea Causey MCHC (RBC) [Mass/Vol] 33.8 g/dL Normal 29.9-35.2 [facility] Comment on above: Performed By: #### U CLINT, CMP, LIPID, DBIL, PHOS, MG #### [facility] [address] [place] [address] Dr. Brea Causey MCV (RBC) [Entitic vol] 86.7 fL Normal 80.0-94.0 [facility] Comment on above: Performed By: #### U CLINT, CMP, LIPID, DBIL, PHOS, MG #### [facility] [address] [place] [address] Dr. Brea Causey MONO # 0.6 103/ul Normal 0.3-0.8 [facility] Comment on above: Performed By: #### U CLINT, CMP, LIPID, DBIL, PHOS, MG #### [facility] [address] [place] [address] Dr. Brea Causey Monocytes/100 WBC (Bld) 10.1 % Normal 1.7-12.0 [facility] Comment on above: Performed By: #### U CLINT, CMP, LIPID, DBIL, PHOS, MG #### [facility] [address] [place] [address] Dr. Brea Causey NEUT # 3.9 103/ul Normal 1.4-6.5 [facility] Comment on above: Performed By: #### U CLINT, CMP, LIPID, DBIL, PHOS, MG #### [facility] [address] [place] [address] Dr. Brea Causey Neutrophils/100 WBC (Bld) 69.5 % Normal 43.0-75.0 [facility] Comment on above: Performed By: #### U CLINT, CMP, LIPID, DBIL, PHOS, MG #### [facility] [address] [place] [address] Dr. Brea Causey Platelet mean volume (Bld) [Entitic vol] 9.2 fL Critically low 9.5-13.5 [facility] Comment on above: Performed By: #### U CLINT, CMP, LIPID, DBIL, PHOS, MG #### [facility] [address] [place] [address] Dr. Brea Causey PLT 228 103/ul Normal 150-450 [facility] Comment on above: Performed By: #### U CLINT, CMP, LIPID, DBIL, PHOS, MG #### [facility] [address] [place] [address] Dr. Brea Causey RBC 4.20 106/ul Critically low 4.70-6.10 [facility] Comment on above: Performed By: #### U CLINT, CMP, LIPID, DBIL, PHOS, MG #### [facility] [address] [place] [address] Dr. Brea Causey WBC 5.6 103/ul Normal 4.0-11.0 [facility] Comment on above: Performed By: #### U CLINT, CMP, LIPID, DBIL, PHOS, MG #### [facility] [address] [address] [address] Brea Causey LIPID PROFILEon 04-03-2022 CHOL-HDL RATIO NORM SEE BELOW Normal [facility] Comment on above: Result Comment: 3.3 - 4.4 LOW RISK 4.4 - 7.1 AVERAGE RISK 7.1 - 11.0 MODERATE RISK >11.0 HIGH RISK Performed By: #### U CLINT, CMP, LIPID, DBIL, PHOS, MG #### [facility] [address] [address] [address] Brea Causey Cholesterol [Mass/Vol] 84 mg/dL Normal <=200 [facility] Comment on above: Performed By: #### U CLINT, CMP, LIPID, DBIL, PHOS, MG #### [facility] [address] [address] [address] Brea Causey Cholesterol in HDL [Mass/Vol] 45 mg/dL Normal 40-60 [facility] Comment on above: Performed By: #### U CLINT, CMP, LIPID, DBIL, PHOS, MG #### [facility] [address] [address] [address] Brea Causey Cholesterol in LDL [Mass/Vol] 22.8 mg/dL Normal [facility] Comment on above: Performed By: #### U CLINT, CMP, LIPID, DBIL, PHOS, MG #### [facility] [address] [address] [address] Brea Causey Cholesterol.total/Cho lesterol in HDL [Mass ratio] 1.9 {ratio} Normal [facility] Comment on above: Performed By: #### U CLINT, CMP, LIPID, DBIL, PHOS, MG #### [facility] [address] [address] [address] Brea Causey HDL NORMAL > or = 60 mg/dl - LO W CARDIOVASCULAR RISK <40 mg/dl - HIGH CARDIOVASCULAR RISK Normal [facility] Comment on above: Performed By: #### U CLINT, CMP, LIPID, DBIL, PHOS, MG #### [facility] [address] [address] [address] Brea Causey LDL CALC NORMAL SEE BELOW Normal [facility] Comment on above: Result Comment: <100 mg/dl OPTIMAL 100 - 129 mg/dl NEAR OR ABOVE OPTIMAL 130 - 159 mg/dl BORDERLINE HIGH 160 - 189 mg/dl HIGH >190 mg/dl VERY HIGH Performed By: #### U CLINT, CMP, LIPID, DBIL, PHOS, MG #### [facility] [address] [address] [address] Brea Causey Triglyceride [Mass/Vol] 81 mg/dL Normal <=150 [facility] Comment on above: Performed By: #### U CLINT, CMP, LIPID, DBIL, PHOS, MG #### [facility] [address] [address] [address] Brea Causey VLDL CALC 16.2 mg/dL Normal [facility] Comment on above: Performed By: #### U CLINT, CMP, LIPID, DBIL, PHOS, MG #### [facility] [address] [address] [address] Brea Causey MAGNESIUMon 04-03-2022 Magnesium [Mass/Vol] 1.6 mg/dL Critically low 1.8-2.4 [facility] Comment on above: Performed By: #### U CLINT, CMP, LIPID, DBIL, PHOS, MG #### [facility] [address] [address] [address] Brea Causey PHOSPHORUSon 04-03-2022 Phosphate [Mass/Vol] 3.9 mg/dL Normal 2.6-4.7 [facility] Comment on above: Performed By: #### U CLINT, CMP, LIPID, DBIL, PHOS, MG #### [facility] [address] [address] [address] Brea Causey PROF 14(COMP METB)on 022 Albumin [Mass/Vol] 4.0 g/dL Normal 3.4-5.0 [facility] Comment on above: Performed By: #### U CLINT, CMP, LIPID, DBIL, PHOS, MG #### [facility] [address] [address] [address] Brea Causey Albumin/Globulin [Mass ratio] 1.2 {ratio} Normal [facility] Comment on above: Performed By: #### U CLINT, CMP, LIPID, DBIL, PHOS, MG #### [facility] [address] [place] [address] Dr. Brea Causey ALP [Catalytic activity/Vol] 196 U/L Critically high 46-116 [facility] Comment on above: Performed By: #### U CLINT, CMP, LIPID, DBIL, PHOS, MG #### [facility] [address] [place] [address] Dr. Brea Causey ALT [Catalytic activity/Vol] 19 U/L Normal 16-63 [facility] Comment on above: Performed By: #### U CLINT, CMP, LIPID, DBIL, PHOS, MG #### [facility] [address] [place] [address] Dr. Brea Causey Anion gap [Moles/Vol] 10.2 mmol/L Normal [facility] Comment on above: Performed By: #### U CLINT, CMP, LIPID, DBIL, PHOS, MG #### [facility] [address] [place] [address] Dr. Brea Causey AST [Catalytic activity/Vol] 15 U/L Normal 15-37 [facility] Comment on above: Performed By: #### U CLINT, CMP, LIPID, DBIL, PHOS, MG #### [facility] [address] [place] [address] Dr. Brea Causey Bilirubin [Mass/Vol] 0.3 mg/dL Normal 0.2-1.0 [facility] Comment on above: Performed By: #### U CLINT, CMP, LIPID, DBIL, PHOS, MG #### [facility] [address] [place] [address] Dr. Brea Causey Calcium [Mass/Vol] 8.2 mg/dL Critically low 8.5-10.1 [facility] Comment on above: Performed By: #### U CLINT, CMP, LIPID, DBIL, PHOS, MG #### [facility] [address] [place] [address] Dr. Brea Causey Chloride [Moles/Vol] 97 mmol/L Critically low 98-107 [facility] Comment on above: Performed By: #### U CLINT, CMP, LIPID, DBIL, PHOS, MG #### [facility] [address] [address] [address] Brea Causey CO2 [Moles/Vol] 28.2 mmol/L Normal 21.0-32.0 [facility] Comment on above: Performed By: #### U CLINT, CMP, LIPID, DBIL, PHOS, MG #### [facility] [address] [address] [address] Brea Causey Creatinine [Mass/Vol] 1.00 mg/dL Normal 0.70-1.30 [facility] Comment on above: Performed By: #### U CLINT, CMP, LIPID, DBIL, PHOS, MG #### [facility] [address] [place] [address] Dr. Brea Causey EGFR-AF LITHUANIAN >60 Normal >=60 [facility] Comment on above: Performed By: #### U CLINT, CMP, LIPID, DBIL, PHOS, MG #### [facility] [address] [place] [address] Dr. Brea Causey EGFR-NON AF LITHUANIAN >60 Normal >=60 [facility] Comment on above: Performed By: #### U CLINT, CMP, LIPID, DBIL, PHOS, MG #### [facility] [address] [address] [address] Brea Causey Globulin (S) [Mass/Vol] 3.3 g/dL Normal [facility] Comment on above: Performed By: #### U CLINT, CMP, LIPID, DBIL, PHOS, MG #### [facility] [address] [address] [address] Brea Causey Glucose [Mass/Vol] 164 mg/dL Critically high 74-106 [facility] Comment on above: Performed By: #### U CLINT, CMP, LIPID, DBIL, PHOS, MG #### [facility] [address] [address] [address] Brea Causey Potassium [Moles/Vol] 4.4 mmol/L Normal 3.5-5.1 [facility] Comment on above: Performed By: #### U CLINT, CMP, LIPID, DBIL, PHOS, MG #### [facility] [address] [address] [address] Brea Causey Protein [Mass/Vol] 7.3 g/dL Normal 6.4-8.2 [facility] Comment on above: Performed By: #### U CLINT, CMP, LIPID, DBIL, PHOS, MG #### [facility] [address] [address] [address] Brea Causey Sodium [Moles/Vol] 131 mmol/L Critically low 136-145 Th [facility] Comment on above: Performed By: #### U CLINT, CMP, LIPID, DBIL, PHOS, MG #### [facility] [address] [place] [address] Dr. Brea Causey Urea nitrogen [Mass/Vol] 13.0 mg/dL Normal 7.0-18.0 [facility] Comment on above: Performed By: #### U CLINT, CMP, LIPID, DBIL, PHOS, MG #### [facility] [address] [address] [address] Brea Causey Urea nitrogen/Creatinine [Mass ratio] 13.0 mg/mg Normal [facility] Comment on above: Performed By: #### U CLINT, CMP, LIPID, DBIL, PHOS, MG #### [facility] [address] [place] [address] Dr. Brea Causey URIC ACID SERUMon 04-03-2022 Urate [Mass/Vol] 6.1 mg/dL Normal 3.5-7.2 [facility] Comment on above: Performed By: #### U CLINT, CMP, LIPID, DBIL, PHOS, MG #### [facility] [address] [place] [address] Dr. Brea Causey TESTOSTERONE, FREE,DIRECT, T OTALon 03-13-2022 Free Testosterone(Direct) 6.9 pg/mL Normal 6.6-18.1 [facility] Comment on above: Result Comment: Perf ormed at: BN Performed By: #### T ESTFRD #### [facility] [address] [place] [address] Dr. Brea Causey Testosterone [Mass/Vol] 428 ng/dL Normal 264-916 [facility] Comment on above: Result Comment: Adul t male reference interval is based on a population of healthy nonobese males (BMI <30) between 19 and 39 years old. Steven, et.al. JCEM 2017,102;5914-5551. PMID: [id number]. Performed at: CB Performed By: #### T ESTFRD #### [facility] [address] [place] [address] Dr. Brea Causey BK VIRUS PCR QUANTon 022 BKV DNA QUANT PCR PLASMA Negative Normal Negative [facility] Comment on above: Result Comment: No B K DNA detected. . The linear range of the assay is 22 - 100,000,000 IU/mL. Performed By: #### B KVIRUS #### [facility] [address] [place] [address] Dr. Brea Causey Log10 BKV DNA Plasma Normal [facility] Comment on above: Performed By: #### B KVIRUS #### [facility] [address] [place] [address] Dr. Brea Causey FK506 (TACROLIMUS) WHOLE BLO ODon 03-11-2022 Tacrolimus (FK506), Blood 4.7 ng/mL Normal 2.0-20.0 [facility] Comment on above: Result Comment: Trou gh (immediately following transplant) 15.0 . Trough (steady state, 2 weeks or more after transplant): 3.0 - 8.0 . Performed by LC-MS/MS technology. Performed By: #### C BC #### [facility] [address] [place] [address] Dr. Brea Causey BILIRUBIN CONJUGATED (DIRECT )on 03-08-2022 BILI, CONJUGATED 0.1 mg/dL Normal 0.0-0.2 [facility] Comment on above: Performed By: #### U CLINT, CMP, LIPID, DBIL, PHOS, MG #### [facility] [address] [place] [address] Dr. Brea Causey CBC AUTO DIFFon 03-08-2022 BASO # 0.0 103/ul Normal 0.0-0.1 [facility] Comment on above: Performed By: #### U CLINT, CMP, LIPID, DBIL, PHOS, MG #### [facility] [address] [address] [address] Brea Causey Basophils/100 WBC (Bld) 0.7 % Normal 0.2-2.0 [facility] Comment on above: Performed By: #### U CLINT, CMP, LIPID, DBIL, PHOS, MG #### [facility] [address] [place] [address] Dr. Brea Causey EO # 0.2 103/ul Normal 0.0-0.7 [facility] Comment on above: Performed By: #### U CLINT, CMP, LIPID, DBIL, PHOS, MG #### [facility] [address] [place] [address] Dr. Brea Causey Eosinophils/100 WBC (Bld) 3.1 % Normal 0.9-7.0 [facility] Comment on above: Performed By: #### U CLINT, CMP, LIPID, DBIL, PHOS, MG #### [facility] [address] [place] [address] Dr. Brea Causey Erythrocyte distribution width (RBC) [Ratio] 13.3 % Normal 11.0-15.0 [facility] Comment on above: Performed By: #### U CLINT, CMP, LIPID, DBIL, PHOS, MG #### [facility] [address] [place] [address] Dr. Brea Causey Hematocrit (Bld) [Volume fraction] 35.7 % Critically low 42.0-54.0 [facility] Comment on above: Performed By: #### U CLINT, CMP, LIPID, DBIL, PHOS, MG #### [facility] [address] [place] [address] Dr. Brea Causey Hemoglobin (Bld) [Mass/Vol] 12.0 g/dL Critically low 14.0-18.0 [facility] Comment on above: Performed By: #### U CLINT, CMP, LIPID, DBIL, PHOS, MG #### [facility] [address] [address] [address] Brea Causey IG # 0.06 10e3/ul Critically high 0.00-0.03 [facility] Comment on above: Performed By: #### U CLINT, CMP, LIPID, DBIL, PHOS, MG #### [facility] [address] [place] [address] Dr. Brea Causey IG % 1.0 % Critically high 0.0-0.5 [facility] Comment on above: Performed By: #### U CLINT, CMP, LIPID, DBIL, PHOS, MG #### [facility] [address] [place] [address] Dr. Brea Causey LYMPH # 0.8 103/ul Critically low 1.2-3.8 [facility] Comment on above: Performed By: #### U CLINT, CMP, LIPID, DBIL, PHOS, MG #### [facility] [address] [place] [address] Dr. Brea Causey Lymphocytes/100 WBC (Bld) 12.9 % Critically low 20.5-60.0 [facility] Comment on above: Performed By: #### U CLINT, CMP, LIPID, DBIL, PHOS, MG #### [facility] [address] [place] [address] Dr. Brea Causey MANUAL DIFF REQ NO Normal [facility] Comment on above: Performed By: #### U CLINT, CMP, LIPID, DBIL, PHOS, MG #### [facility] [address] [place] [address] Dr. Brea Causey MCH (RBC) [Entitic mass] 29.5 pg Normal 25.9-34.0 [facility] Comment on above: Performed By: #### U CLINT, CMP, LIPID, DBIL, PHOS, MG #### [facility] [address] [place] [address] Dr. Brea Causey MCHC (RBC) [Mass/Vol] 33.6 g/dL Normal 29.9-35.2 [facility] Comment on above: Performed By: #### U CLINT, CMP, LIPID, DBIL, PHOS, MG #### [facility] [address] [place] [address] Dr. Brea Causey MCV (RBC) [Entitic vol] 87.7 fL Normal 80.0-94.0 [facility] Comment on above: Performed By: #### U CLINT, CMP, LIPID, DBIL, PHOS, MG #### [facility] [address] [place] [address] Dr. Brea Causey MONO # 0.6 103/ul Normal 0.3-0.8 [facility] Comment on above: Performed By: #### U CLINT, CMP, LIPID, DBIL, PHOS, MG #### [facility] [address] [place] [address] Dr. Brea Causey Monocytes/100 WBC (Bld) 9.8 % Normal 1.7-12.0 [facility] Comment on above: Performed By: #### U CLINT, CMP, LIPID, DBIL, PHOS, MG #### [facility] [address] [place] [address] Dr. Brea Causey NEUT # 4.4 103/ul Normal 1.4-6.5 [facility] Comment on above: Performed By: #### U CLINT, CMP, LIPID, DBIL, PHOS, MG #### [facility] [address] [place] [address] Dr. Brea Causey Neutrophils/100 WBC (Bld) 72.5 % Normal 43.0-75.0 [facility] Comment on above: Performed By: #### U CLINT, CMP, LIPID, DBIL, PHOS, MG #### [facility] [address] [place] [address] Dr. Brea Causey Platelet mean volume (Bld) [Entitic vol] 9.6 fL Normal 9.5-13.5 [facility] Comment on above: Performed By: #### U CLINT, CMP, LIPID, DBIL, PHOS, MG #### [facility] [address] [place] [address] Dr. Brea Causey PLT 265 103/ul Normal 150-450 [facility] Comment on above: Performed By: #### U CLINT, CMP, LIPID, DBIL, PHOS, MG #### [facility] [address] [address] [address] Brea Causey RBC 4.07 106/ul Critically low 4.70-6.10 [facility] Comment on above: Performed By: #### U CLINT, CMP, LIPID, DBIL, PHOS, MG #### [facility] [address] [address] [address] Brea Causey WBC 6.0 103/ul Normal 4.0-11.0 [facility] Comment on above: Performed By: #### U CLINT, CMP, LIPID, DBIL, PHOS, MG #### [facility] [address] [address] [address] Brea Causey GLYCOHEMOGLOBIN A1Con 2021 ADA RECOMMENDATION SEE BELOW Normal [facility] Comment on above: Result Comment: ADA RECOMMENDED LIMIT 4.0 - 6.0 ADA THERAPEUTIC TARGET < 7.0 ACTION SUGGESTED > 7.0 Performed By: #### U CLINT, CMP, LIPID, DBIL, PHOS, MG #### [facility] [address] [address] [address] Brea Causey Glucose [Mass/Vol] 169 mg/dL Normal [facility] Comment on above: Performed By: #### U CLINT, CMP, LIPID, DBIL, PHOS, MG #### [facility] [address] [address] [address] Brea Causey HbA1c (Bld) [Mass fraction] 7.5 % Critically high 4.5-6.2 [facility] Comment on above: Performed By: #### U CLINT, CMP, LIPID, DBIL, PHOS, MG #### [facility] [address] [address] [address] Brea Causey LIPID PROFILEon 03-08-2022 CHOL-HDL RATIO NORM SEE BELOW Normal [facility] Comment on above: Result Comment: 3.3 - 4.4 LOW RISK 4.4 - 7.1 AVERAGE RISK 7.1 - 11.0 MODERATE RISK >11.0 HIGH RISK Performed By: #### U CLINT, CMP, LIPID, DBIL, PHOS, MG #### [facility] [address] [address] [address] Brea Causey Cholesterol [Mass/Vol] 77 mg/dL Normal <=200 [facility] Comment on above: Performed By: #### U CLINT, CMP, LIPID, DBIL, PHOS, MG #### [facility] [address] [address] [address] Brea Causey Cholesterol in HDL [Mass/Vol] 49 mg/dL Normal 40-60 [facility] Comment on above: Performed By: #### U CLINT, CMP, LIPID, DBIL, PHOS, MG #### [facility] [address] [place] [address] Dr. Brea Causey Cholesterol in LDL [Mass/Vol] 20.4 mg/dL Normal [facility] Comment on above: Performed By: #### U CLINT, CMP, LIPID, DBIL, PHOS, MG #### [facility] [address] [address] [address] Brea Causey Cholesterol.total/Cho lesterol in HDL [Mass ratio] 1.6 {ratio} Normal [facility] Comment on above: Performed By: #### U CLINT, CMP, LIPID, DBIL, PHOS, MG #### [facility] [address] [address] [address] Brea Causey HDL NORMAL > or = 60 mg/dl - LO W CARDIOVASCULAR RISK <40 mg/dl - HIGH CARDIOVASCULAR RISK Normal [facility] Comment on above: Performed By: #### U CLINT, CMP, LIPID, DBIL, PHOS, MG #### [facility] [address] [address] [address] Brea Causey LDL CALC NORMAL SEE BELOW Normal [facility] Comment on above: Result Comment: <100 mg/dl OPTIMAL 100 - 129 mg/dl NEAR OR ABOVE OPTIMAL 130 - 159 mg/dl BORDERLINE HIGH 160 - 189 mg/dl HIGH >190 mg/dl VERY HIGH Performed By: #### U CLINT, CMP, LIPID, DBIL, PHOS, MG #### [facility] [address] [address] [address] Brea Causey Triglyceride [Mass/Vol] 38 mg/dL Normal <=150 [facility] Comment on above: Performed By: #### U CLINT, CMP, LIPID, DBIL, PHOS, MG #### [facility] [address] [address] [address] Brea Causey VLDL CALC 7.6 mg/dL Normal [facility] Comment on above: Performed By: #### U CLINT, CMP, LIPID, DBIL, PHOS, MG #### [facility] [address] [address] [address] Brea Causey MAGNESIUMon 03-08-2022 Magnesium [Mass/Vol] 1.5 mg/dL Critically low 1.8-2.4 [facility] Comment on above: Performed By: #### U CLINT, CMP, LIPID, DBIL, PHOS, MG #### [facility] [address] [place] [address] Dr. Brea Causey PHOSPHORUSon 03-08-2022 Phosphate [Mass/Vol] 3.6 mg/dL Normal 2.6-4.7 [facility] Comment on above: Performed By: #### U CLINT, CMP, LIPID, DBIL, PHOS, MG #### [facility] [address] [address] [address] Brea Causey PROF 14(COMP METB)on 022 Albumin [Mass/Vol] 4.0 g/dL Normal 3.4-5.0 [facility] Comment on above: Performed By: #### U CLINT, CMP, LIPID, DBIL, PHOS, MG #### [facility] [address] [address] [address] Brea Causey Albumin/Globulin [Mass ratio] 1.2 {ratio} Normal [facility] Comment on above: Performed By: #### U CLINT, CMP, LIPID, DBIL, PHOS, MG #### [facility] [address] [address] [address] Brea Causey ALP [Catalytic activity/Vol] 176 U/L Critically high 46-116 [facility] Comment on above: Performed By: #### U CLINT, CMP, LIPID, DBIL, PHOS, MG #### [facility] [address] [place] [address] Dr. Brea Causey ALT [Catalytic activity/Vol] 21 U/L Normal 16-63 [facility] Comment on above: Performed By: #### U CLINT, CMP, LIPID, DBIL, PHOS, MG #### [facility] [address] [place] [address] Dr. Brea Causey Anion gap [Moles/Vol] 12.0 mmol/L Normal [facility] Comment on above: Performed By: #### U CLINT, CMP, LIPID, DBIL, PHOS, MG #### [facility] [address] [place] [address] Dr. Brea Causey AST [Catalytic activity/Vol] 13 U/L Critically low 15-37 [facility] Comment on above: Performed By: #### U CLINT, CMP, LIPID, DBIL, PHOS, MG #### [facility] [address] [place] [address] Dr. Brea Causey Bilirubin [Mass/Vol] 0.3 mg/dL Normal 0.2-1.0 [facility] Comment on above: Performed By: #### U CLINT, CMP, LIPID, DBIL, PHOS, MG #### [facility] [address] [place] [address] Dr. Bera Causey Calcium [Mass/Vol] 7.9 mg/dL Critically low 8.5-10.1 [facility] Comment on above: Performed By: #### U CLINT, CMP, LIPID, DBIL, PHOS, MG #### [facility] [address] [address] [address] Brea Causey Chloride [Moles/Vol] 100 mmol/L Normal 98-107 [facility] Comment on above: Performed By: #### U CLINT, CMP, LIPID, DBIL, PHOS, MG #### [facility] [address] [address] [address] Brea Causey CO2 [Moles/Vol] 27.3 mmol/L Normal 21.0-32.0 [facility] Comment on above: Performed By: #### U CLINT, CMP, LIPID, DBIL, PHOS, MG #### [facility] [address] [address] [address] Brea Causey Creatinine [Mass/Vol] 1.00 mg/dL Normal 0.70-1.30 [facility] Comment on above: Performed By: #### U CLINT, CMP, LIPID, DBIL, PHOS, MG #### [facility] [address] [place] [address] Dr. Brea Causey EGFR-AF LITHUANIAN >60 Normal >=60 [facility] Comment on above: Performed By: #### U CLINT, CMP, LIPID, DBIL, PHOS, MG #### [facility] [address] [place] [address] Dr. Brea Causey EGFR-NON AF LITHUANIAN >60 Normal >=60 [facility] Comment on above: Performed By: #### U CLINT, CMP, LIPID, DBIL, PHOS, MG #### [facility] [address] [place] [address] Dr. Brea Causey Globulin (S) [Mass/Vol] 3.3 g/dL Normal [facility] Comment on above: Performed By: #### U CLINT, CMP, LIPID, DBIL, PHOS, MG #### [facility] [address] [place] [address] Dr. Brea Causey Glucose [Mass/Vol] 155 mg/dL Critically high 74-106 T [facility] Comment on above: Performed By: #### U CLINT, CMP, LIPID, DBIL, PHOS, MG #### [facility] [address] [place] [address] Dr. Brea Causey Potassium [Moles/Vol] 4.3 mmol/L Normal 3.5-5.1 [facility] Comment on above: Performed By: #### U CLINT, CMP, LIPID, DBIL, PHOS, MG #### [facility] [address] [address] [address] Brea Causey Protein [Mass/Vol] 7.3 g/dL Normal 6.4-8.2 [facility] Comment on above: Performed By: #### U CLINT, CMP, LIPID, DBIL, PHOS, MG #### [facility] [address] [place] [address] Dr. Brea Causey Sodium [Moles/Vol] 135 mmol/L Critically low 136-145 Th [facility] Comment on above: Performed By: #### U CLINT, CMP, LIPID, DBIL, PHOS, MG #### [facility] [address] [place] [address] Dr. Brea Causey Urea nitrogen [Mass/Vol] 13.0 mg/dL Normal 7.0-18.0 [facility] Comment on above: Performed By: #### U CLINT, CMP, LIPID, DBIL, PHOS, MG #### [facility] [address] [place] [address] Dr. Brea Causey Urea nitrogen/Creatinine [Mass ratio] 13.0 mg/mg Normal [facility] Comment on above: Performed By: #### U CLINT, CMP, LIPID, DBIL, PHOS, MG #### [facility] [address] [place] [address] Dr. Brea Causey URIC ACID SERUMon 03-08-2022 Urate [Mass/Vol] 7.3 mg/dL Critically high 3.5-7.2 [facility] Comment on above: Performed By: #### U CLINT, CMP, LIPID, DBIL, PHOS, MG #### [facility] [address] [place] [address] Dr. Brea Snyder 03-05-2022 L - -------- Specimen: [id number] Received: 03/05/22 Status: CHERI Fair Num: [id number] Spec Type: Surgical Subm Dr: Tj Wells MD Tissues: A Colon Biopsy (COLON BX) B Colon Biopsy (DIVERTICULAR COLITIS) Procedures: HE Stain/4, Gross/Micro L4/2 -------- Age/ Patient Sex Location Account Attending Physician -------- Roger Suarez 71/[facility] [id number] Tj Wells MD -------- SPEC NUM: [id number] RECD: 03/05/22 STATUS: CHERI FAIR NUM: [id number] ESTEFANI: 03/05/[address]: Tj Wells MD ENTERED: 03/05/221 [facility] DR: SPEC TYPE: Surgical DEPT: S ORDERED: [...] in one cassette labeled B1. -------- Specimen: [id number] Received: 03/05/22 Status: CHERI Fair Num: [id number] Spec Type: Surgical Subm Dr: Tj Wells MD Tissues: A Colon Biopsy (COLON BX) B Colon Biopsy (DIVERTICULAR COLITIS) Procedures: HE Stain/4, Gross/Micro L4/2 -------- Patient: Roger Suarez [id number] (Continued) -------- Specimen: [id number] Received: 03/05/22 (Continued) Signed (signature on file) Kalpana Shaw MD 03/07/22 1025 -------- Specimen: [id number] Received: 03/05/22 Status: CHERI Fair Num: [id number] Spec Type: Surgical Subm Dr: Tj Wells MD Tissues: A Colon Biopsy (COLON BX) B Colon Biopsy (DIVERTICULAR COLITIS) Procedures: HE Stain/4, Gross/Micro L4/2 -------- Patient: Roger Suarez [id number] (Continued) -------- Specimen: [id number] Received: 03/05/22 (Continued) Microscopic Description A. Two glass slides with H E stained material have been examined. The microscopic findings support the above pathologic diagnosis. B. Two glass slides with H E stained material have been examined. The microscopic findings support the above pathologic diagnosis. CPT Codes 74416?2 -------- -------- Specimen: [id number] Received: 03/05/22 Status: CHERI Fair Num: [id number] Spec Type: Surgical Subm Dr: Tj Wells MD Tissues: A Colon Biopsy (COLON BX) B Colon Biopsy (DIVERTICULAR COLITIS) Procedures: HE Stain/4, Gross/Micro L4/2 -------- Patient: Roger Suarez [id number] (Continued) -------- Signed (signature on file) Kalpana Shaw MD 03/07/22 1025 [facility] COVID-19 Antigenon 2 COVID-19 Antigen Healthcare Worker?: [...] developed and its performance characteristic determined by [employer] and validated at [facility]. This test has not been FDA cleared [...] for SARS Antigen by ROCHELLE PERFORMED BY: [place] [address] PATHOLOGIST FILM DEVELOPING MACHINE OPERATOR FEI WOODRUFF M.D. Normal [facility] Comment on above: Performed By: #### C OVID-19 MARQUISE, SOFIANEG #### [facility] [address] COVID-19 SOFIAOrdered By: Sheila Wells on 03-01-2022 SARS-CoV+SARS-CoV-2 (COVID-19) Ag IA.rapid Ql (Resp) Negative Negative [facility] Comment on above: This is a duplicate Marquise SARS Antigen (ROCHELLE) result to be used for statistical tracking purpose only. No Panel InformationOrdered By: Tj Wells on 03-01-2022 SARS Antigen (LFIA) [facility] Marquies Ag Negativeon 03-01-20 22 Marquise Ag Negative Negative Normal Negative [facility] Comment on above: Result Comment: This is a duplicate Marquise SARS Antigen (ROCHELLE) result to be used for statistical tracking purpose only. PERFORMED BY: [place] [address] PATHOLOGIST FILM DEVELOPING MACHINE OPERATOR FEI WOODRUFF M.D. Performed By: #### C OVID-19 MARQUISE, SOFIANEG #### [address] FK506 (TACROLIMUS) WHOLE BLO ODon 02-05-2022 Tacrolimus (FK506), Blood 5.4 ng/mL Normal 2.0-20.0 [facility] Comment on above: Result Comment: Trou gh (immediately following transplant) 15.0 . Trough (steady state, 2 weeks or more after transplant): 3.0 - 8.0 . Performed by LC-MS/MS technology. Performed By: #### U CLINT, CMP, LIPID, DBIL, PHOS, MG #### [facility] [address] [place] [address] Dr. Brea Causey BILIRUBIN CONJUGATED (DIRECT )on 02-01-2022 BILI, CONJUGATED 0.1 mg/dL Normal 0.0-0.2 [facility] Comment on above: Performed By: #### C BC #### [facility] [address] [place] [address] Dr. Brea Causey CBC AUTO DIFFon 02-01-2022 BASO # 0.0 103/ul Normal 0.0-0.1 [facility] Comment on above: Performed By: #### B KVIRUS #### [facility] [address] [place] [address] Dr. Brea Causey Basophils/100 WBC (Bld) 0.6 % Normal 0.2-2.0 [facility] Comment on above: Performed By: #### B KVIRUS #### [facility] [address] [place] [address] Dr. Brea Causey EO # 0.2 103/ul Normal 0.0-0.7 [facility] Comment on above: Performed By: #### B KVIRUS #### [facility] [address] [address] [address] Brea Causey Eosinophils/100 WBC (Bld) 3.5 % Normal 0.9-7.0 [facility] Comment on above: Performed By: #### B KVIRUS #### [facility] [address] [place] [address] Dr. Brea Causey Erythrocyte distribution width (RBC) [Ratio] 13.0 % Normal 11.0-15.0 [facility] Comment on above: Performed By: #### B KVIRUS #### [facility] [address] [place] [address] Dr. Brea Causey Hematocrit (Bld) [Volume fraction] 36.9 % Critically low 42.0-54.0 [facility] Comment on above: Performed By: #### B KVIRUS #### [facility] [address] [place] [address] Dr. Brea Causey Hemoglobin (Bld) [Mass/Vol] 12.0 g/dL Critically low 14.0-18.0 [facility] Comment on above: Performed By: #### B KVIRUS #### [facility] [address] [place] [address] Dr. Brea Causey IG # 0.07 10e3/ul Critically high 0.00-0.03 [facility] Comment on above: Performed By: #### B KVIRUS #### [facility] [address] [place] [address] Dr. Brea Causey IG % 1.0 % Critically high 0.0-0.5 [facility] Comment on above: Performed By: #### B KVIRUS #### [facility] [address] [place] [address] Dr. Brea Causey LYMPH # 1.0 103/ul Critically low 1.2-3.8 [facility] Comment on above: Performed By: #### B KVIRUS #### [facility] [address] [place] [address] Dr. Brea Causey Lymphocytes/100 WBC (Bld) 14.2 % Critically low 20.5-60.0 [facility] Comment on above: Performed By: #### B KVIRUS #### [facility] [address] [place] [address] Dr. Brea Causey MANUAL DIFF REQ NO Normal [facility] Comment on above: Performed By: #### B KVIRUS #### [facility] [address] [place] [address] Dr. Brea Causey MCH (RBC) [Entitic mass] 29.1 pg Normal 25.9-34.0 [facility] Comment on above: Performed By: #### B KVIRUS #### [facility] [address] [place] [address] Dr. Brea Causey MCHC (RBC) [Mass/Vol] 32.5 g/dL Normal 29.9-35.2 [facility] Comment on above: Performed By: #### B KVIRUS #### [facility] [address] [place] [address] Dr. Brea Causey MCV (RBC) [Entitic vol] 89.6 fL Normal 80.0-94.0 [facility] Comment on above: Performed By: #### B KVIRUS #### [facility] [address] [place] [address] Dr. Brea Causey MONO # 0.7 103/ul Normal 0.3-0.8 [facility] Comment on above: Performed By: #### B KVIRUS #### [facility] [address] [place] [address] Dr. Brea Causey Monocytes/100 WBC (Bld) 9.9 % Normal 1.7-12.0 [facility] Comment on above: Performed By: #### B KVIRUS #### [facility] [address] [place] [address] Dr. Brea Causey NEUT # 4.9 103/ul Normal 1.4-6.5 [facility] Comment on above: Performed By: #### B KVIRUS #### [facility] [address] [place] [address] Dr. Brea Causey Neutrophils/100 WBC (Bld) 70.8 % Normal 43.0-75.0 [facility] Comment on above: Performed By: #### B KVIRUS #### [facility] [address] [address] [address] Brea Causey Platelet mean volume (Bld) [Entitic vol] 9.6 fL Normal 9.5-13.5 [facility] Comment on above: Performed By: #### B KVIRUS #### [facility] [address] [address] [address] Brea Causey PLT 247 103/ul Normal 150-450 [facility] Comment on above: Performed By: #### B KVIRUS #### [facility] [address] [address] [address] Brea Causey RBC 4.12 106/ul Critically low 4.70-6.10 [facility] Comment on above: Performed By: #### B KVIRUS #### [facility] [address] [place] [address] Dr. Brea Causey WBC 6.9 103/ul Normal 4.0-11.0 [facility] Comment on above: Performed By: #### B KVIRUS #### [facility] [address] [place] [address] Dr. Brea Causey LIPID PROFILEon 02-01-2022 CHOL-HDL RATIO NORM SEE BELOW Normal [facility] Comment on above: Result Comment: 3.3 - 4.4 LOW RISK 4.4 - 7.1 AVERAGE RISK 7.1 - 11.0 MODERATE RISK >11.0 HIGH RISK Performed By: #### C BC #### [facility] [address] [place] [address] Dr. Brea Causey Cholesterol [Mass/Vol] 77 mg/dL Normal <=200 [facility] Comment on above: Performed By: #### C BC #### [facility] [address] [place] [address] Dr. Brea Causey Cholesterol in HDL [Mass/Vol] 40 mg/dL Normal 40-60 [facility] Comment on above: Performed By: #### C BC #### [facility] [address] [place] [address] Dr. Brea Causey Cholesterol in LDL [Mass/Vol] 21.0 mg/dL Normal [facility] Comment on above: Performed By: #### C BC #### [facility] [address] [address] [address] Brea Cauesy Cholesterol.total/Cho lesterol in HDL [Mass ratio] 1.9 {ratio} Normal [facility] Comment on above: Performed By: #### C BC #### [facility] [address] [address] [address] Brea Causey HDL NORMAL > or = 60 mg/dl - LO W CARDIOVASCULAR RISK <40 mg/dl - HIGH CARDIOVASCULAR RISK Normal [facility] Comment on above: Performed By: #### C BC #### [facility] [address] [place] [address] Dr. Brea Causey LDL CALC NORMAL SEE BELOW Normal [facility] Comment on above: Result Comment: <100 mg/dl OPTIMAL 100 - 129 mg/dl NEAR OR ABOVE OPTIMAL 130 - 159 mg/dl BORDERLINE HIGH 160 - 189 mg/dl HIGH >190 mg/dl VERY HIGH Performed By: #### C BC #### [facility] [address] [place] [address] Dr. Brea Causey Triglyceride [Mass/Vol] 80 mg/dL Normal <=150 [facility] Comment on above: Performed By: #### C BC #### [facility] [address] [place] [address] Dr. Brea Causey VLDL CALC 16.0 mg/dL Normal [facility] Comment on above: Performed By: #### C BC #### [facility] [address] [place] [address] Dr. Brea Causey MAGNESIUMon 02-01-2022 Magnesium [Mass/Vol] 1.5 mg/dL Critically low 1.8-2.4 [facility] Comment on above: Performed By: #### C BC #### [facility] [address] [place] [address] Dr. Brea Causey PHOSPHORUSon 02-01-2022 Phosphate [Mass/Vol] 4.1 mg/dL Normal 2.6-4.7 [facility] Comment on above: Performed By: #### C BC #### [facility] [address] [place] [address] Dr. Brea Causey PROF 14(COMP METB)on 022 Albumin [Mass/Vol] 4.0 g/dL Normal 3.4-5.0 [facility] Comment on above: Performed By: #### C BC #### [facility] [address] [place] [address] Dr. Brea Causey Albumin/Globulin [Mass ratio] 1.3 {ratio} Normal [facility] Comment on above: Performed By: #### C BC #### [facility] [address] [place] [address] Dr. Brea Causey ALP [Catalytic activity/Vol] 162 U/L Critically high 46-116 [facility] Comment on above: Performed By: #### C BC #### [facility] [address] [place] [address] Dr. Brae Causey ALT [Catalytic activity/Vol] 25 U/L Normal 16-63 [facility] Comment on above: Performed By: #### C BC #### [facility] [address] [place] [address] Dr. Brea Causey Anion gap [Moles/Vol] 11.1 mmol/L Normal [facility] Comment on above: Performed By: #### C BC #### [facility] [address] [place] [address] Dr. Brea Causey AST [Catalytic activity/Vol] 16 U/L Normal 15-37 [facility] Comment on above: Performed By: #### C BC #### [facility] [address] [place] [address] Dr. Brea Causey Bilirubin [Mass/Vol] 0.4 mg/dL Normal 0.2-1.0 [facility] Comment on above: Performed By: #### C BC #### [facility] [address] [place] [address] Dr. Brea Causey Calcium [Mass/Vol] 8.2 mg/dL Critically low 8.5-10.1 [facility] Comment on above: Performed By: #### C BC #### [facility] [address] [place] [address] Dr. Brea Causey Chloride [Moles/Vol] 99 mmol/L Normal 98-107 [facility] Comment on above: Performed By: #### C BC #### [facility] [address] [place] [address] Dr. Brea Causey CO2 [Moles/Vol] 28.1 mmol/L Normal 21.0-32.0 [facility] Comment on above: Performed By: #### C BC #### [facility] [address] [place] [address] Dr. Brea Causey Creatinine [Mass/Vol] 1.13 mg/dL Normal 0.70-1.30 [facility] Comment on above: Performed By: #### C BC #### [facility] [address] [place] [address] Dr. Brea Causey EGFR-AF LITHUANIAN >60 Normal >=60 [facility] Comment on above: Performed By: #### C BC #### [facility] [address] [place] [address] Dr. Brea Causey EGFR-NON AF LITHUANIAN >60 Normal >=60 [facility] Comment on above: Performed By: #### C BC #### [facility] [address] [place] [address] Dr. Brea Causey Globulin (S) [Mass/Vol] 3.1 g/dL Normal [facility] Comment on above: Performed By: #### C BC #### [facility] [address] [place] [address] Dr. Brea Causey Glucose [Mass/Vol] 177 mg/dL Critically high 74-106 [facility] Comment on above: Performed By: #### C BC #### [facility] [address] [place] [address] Dr. Brea Causey Potassium [Moles/Vol] 5.2 mmol/L Critically high 3.5-5.1 [facility] Comment on above: Performed By: #### C BC #### [facility] [address] [place] [address] Dr. Brea Causey Protein [Mass/Vol] 7.1 g/dL Normal 6.4-8.2 [facility] Comment on above: Performed By: #### C BC #### [facility] [address] [place] [address] Dr. Brea Causey Sodium [Moles/Vol] 133 mmol/L Critically low 136-145 [facility] Comment on above: Performed By: #### C BC #### [facility] [address] [place] [address] Dr. Brea Causey Urea nitrogen [Mass/Vol] 12.0 mg/dL Normal 7.0-18.0 [facility] Comment on above: Performed By: #### C BC #### [facility] [address] [place] [address] Dr. Brea Causey Urea nitrogen/Creatinine [Mass ratio] 10.6 mg/mg Normal [facility] Comment on above: Performed By: #### C BC #### [facility] [address] [place] [address] Dr. Brea Causey URIC ACID SERUMon 02-01-2022 Urate [Mass/Vol] 7.7 mg/dL Critically high 3.5-7.2 [facility] Comment on above: Performed By: #### C BC #### [facility] [address] [place] [address] Dr. Brea Causey FK506 (TACROLIMUS) WHOLE BLO ODon 01-06-2022 Tacrolimus (FK506), Blood 11.4 ng/mL Normal 2.0-20.0 [facility] Comment on above: Result Comment: Trou gh (immediately following transplant) 15.0 . Trough (steady state, 2 weeks or more after transplant): 3.0 - 8.0 . Performed by LC-MS/MS technology. Performed By: #### B KVIRUS #### [facility] [address] [place] [address] Dr. Brea Causey BILIRUBIN CONJUGATED (DIRECT )on 01-04-2022 BILI, CONJUGATED 0.1 mg/dL Normal 0.0-0.2 [facility] Comment on above: Performed By: #### U CLINT, CMP, LIPID, DBIL, PHOS, MG #### [facility] [address] [place] [address] Dr. Brea Causey BOX TEST SENT OUTon 01-05-20 SENT TO REF LAB 01/04/2022 Normal [facility] Comment on above: Performed By: #### U CLINT, CMP, LIPID, DBIL, PHOS, MG #### [facility] [address] [place] [address] Dr. Brea Causey CBC AUTO DIFFon 01-04-2022 BASO # 0.0 103/ul Normal 0.0-0.1 [facility] Comment on above: Performed By: #### U CLINT, CMP, LIPID, DBIL, PHOS, MG #### [facility] [address] [place] [address] Dr. Brea Causey Basophils/100 WBC (Bld) 0.5 % Normal 0.2-2.0 [facility] Comment on above: Performed By: #### U CLINT, CMP, LIPID, DBIL, PHOS, MG #### [facility] [address] [place] [address] Dr. Brea Causey EO # 0.3 103/ul Normal 0.0-0.7 [facility] Comment on above: Performed By: #### U CLINT, CMP, LIPID, DBIL, PHOS, MG #### [facility] [address] [place] [address] Dr. Brea Causey Eosinophils/100 WBC (Bld) 3.9 % Normal 0.9-7.0 [facility] Comment on above: Performed By: #### U CLINT, CMP, LIPID, DBIL, PHOS, MG #### [facility] [address] [place] [address] Dr. Brea Causey Erythrocyte distribution width (RBC) [Ratio] 13.1 % Normal 11.0-15.0 [facility] Comment on above: Performed By: #### U CLINT, CMP, LIPID, DBIL, PHOS, MG #### [facility] [address] [place] [address] Dr. Brea Causey Hematocrit (Bld) [Volume fraction] 37.4 % Critically low 42.0-54.0 [facility] Comment on above: Performed By: #### U CLINT, CMP, LIPID, DBIL, PHOS, MG #### [facility] [address] [place] [address] Dr. Brea Causey Hemoglobin (Bld) [Mass/Vol] 12.0 g/dL Critically low 14.0-18.0 [facility] Comment on above: Performed By: #### U CLINT, CMP, LIPID, DBIL, PHOS, MG #### [facility] [address] [place] [address] Dr. Brea Causey IG # 0.07 10e3/ul Critically high 0.00-0.03 [facility] Comment on above: Performed By: #### U CLINT, CMP, LIPID, DBIL, PHOS, MG #### [facility] [address] [place] [address] Dr. Brea Causey IG % 1.1 % Critically high 0.0-0.5 [facility] Comment on above: Performed By: #### U CLINT, CMP, LIPID, DBIL, PHOS, MG #### [facility] [address] [place] [address] Dr. Brea Causey LYMPH # 0.8 103/ul Critically low 1.2-3.8 [facility] Comment on above: Performed By: #### U CLINT, CMP, LIPID, DBIL, PHOS, MG #### [facility] [address] [place] [address] Dr. Brea Causey Lymphocytes/100 WBC (Bld) 12.2 % Critically low 20.5-60.0 [facility] Comment on above: Performed By: #### U CLINT, CMP, LIPID, DBIL, PHOS, MG #### [facility] [address] [place] [address] Dr. Brea Causey MANUAL DIFF REQ NO Normal [facility] Comment on above: Performed By: #### U CLINT, CMP, LIPID, DBIL, PHOS, MG #### [facility] [address] [place] [address] Dr. Brea Causey MCH (RBC) [Entitic mass] 29.1 pg Normal 25.9-34.0 [facility] Comment on above: Performed By: #### U CLINT, CMP, LIPID, DBIL, PHOS, MG #### [facility] [address] [place] [address] Dr. Brae Causey MCHC (RBC) [Mass/Vol] 32.1 g/dL Normal 29.9-35.2 [facility] Comment on above: Performed By: #### U CLINT, CMP, LIPID, DBIL, PHOS, MG #### [facility] [address] [place] [address] Dr. Brea Causey MCV (RBC) [Entitic vol] 90.6 fL Normal 80.0-94.0 [facility] Comment on above: Performed By: #### U CLINT, CMP, LIPID, DBIL, PHOS, MG #### [facility] [address] [place] [address] Dr. Brea Causey MONO # 0.5 103/ul Normal 0.3-0.8 [facility] Comment on above: Performed By: #### U CLINT, CMP, LIPID, DBIL, PHOS, MG #### [facility] [address] [place] [address] Dr. Brea Causey Monocytes/100 WBC (Bld) 8.0 % Normal 1.7-12.0 [facility] Comment on above: Performed By: #### U CLINT, CMP, LIPID, DBIL, PHOS, MG #### [facility] [address] [place] [address] Dr. Brea Causey NEUT # 5.0 103/ul Normal 1.4-6.5 [facility] Comment on above: Performed By: #### U CLINT, CMP, LIPID, DBIL, PHOS, MG #### [facility] [address] [place] [address] Dr. Brea Causey Neutrophils/100 WBC (Bld) 74.3 % Normal 43.0-75.0 [facility] [facility] Comment on above: Performed By: #### U CLINT, CMP, LIPID, DBIL, PHOS, MG #### [facility] [address] [address] [address] Brea Causey Platelet mean volume (Bld) [Entitic vol] 9.5 fL Normal 9.5-13.5 [facility] Comment on above: Performed By: #### U CLINT, CMP, LIPID, DBIL, PHOS, MG #### [facility] [address] [address] [address] Brea Causey PLT 243 103/ul Normal 150-450 [facility] Comment on above: Performed By: #### U CLINT, CMP, LIPID, DBIL, PHOS, MG #### [facility] [address] [address] [address] Brea Causey RBC 4.13 106/ul Critically low 4.70-6.10 [facility] Comment on above: Performed By: #### U CLINT, CMP, LIPID, DBIL, PHOS, MG #### [facility] [address] [address] [address] Brea Causey WBC 6.7 103/ul Normal 4.0-11.0 [facility] Comment on above: Performed By: #### U CLINT, CMP, LIPID, DBIL, PHOS, MG #### [facility] [address] [address] [address] Brea Causey LIPID PROFILEon 01-04-2022 CHOL-HDL RATIO NORM SEE BELOW Normal [facility] Comment on above: Result Comment: 3.3 - 4.4 LOW RISK 4.4 - 7.1 AVERAGE RISK 7.1 - 11.0 MODERATE RISK >11.0 HIGH RISK Performed By: #### U CLINT, CMP, LIPID, DBIL, PHOS, MG #### [facility] [address] [address] [address] Brea Causey Cholesterol [Mass/Vol] 81 mg/dL Normal <=200 [facility] Comment on above: Performed By: #### U CLINT, CMP, LIPID, DBIL, PHOS, MG #### [facility] [address] [address] [address] Brea Causey Cholesterol in HDL [Mass/Vol] 43 mg/dL Normal 40-60 [facility] Comment on above: Performed By: #### U CLINT, CMP, LIPID, DBIL, PHOS, MG #### [facility] [address] [address] [address] Brea Causey Cholesterol in LDL [Mass/Vol] 26.0 mg/dL Normal [facility] Comment on above: Performed By: #### U CLINT, CMP, LIPID, DBIL, PHOS, MG #### [facility] [address] [address] [address] Brea Causey Cholesterol.total/Cho lesterol in HDL [Mass ratio] 1.9 {ratio} Normal [facility] Comment on above: Performed By: #### U CLINT, CMP, LIPID, DBIL, PHOS, MG #### [facility] [address] [address] [address] Brea Causey HDL NORMAL > or = 60 mg/dl - LO W CARDIOVASCULAR RISK <40 mg/dl - HIGH CARDIOVASCULAR RISK Normal [facility] Comment on above: Performed By: #### U CLINT, CMP, LIPID, DBIL, PHOS, MG #### [facility] [address] [address] [address] Brea Causey LDL CALC NORMAL SEE BELOW Normal [facility] Comment on above: Result Comment: <100 mg/dl OPTIMAL 100 - 129 mg/dl NEAR OR ABOVE OPTIMAL 130 - 159 mg/dl BORDERLINE HIGH 160 - 189 mg/dl HIGH >190 mg/dl VERY HIGH Performed By: #### U CLINT, CMP, LIPID, DBIL, PHOS, MG #### [facility] [address] [address] [address] Brea Causey Triglyceride [Mass/Vol] 60 mg/dL Normal <=150 [facility] Comment on above: Performed By: #### U CLINT, CMP, LIPID, DBIL, PHOS, MG #### [facility] [address] [address] [address] Brea Causey VLDL CALC 12.0 mg/dL Normal [facility] Comment on above: Performed By: #### U CLINT, CMP, LIPID, DBIL, PHOS, MG #### [facility] [address] [address] [address] Brea Causey MAGNESIUMon 01-04-2022 Magnesium [Mass/Vol] 1.4 mg/dL Critically low 1.8-2.4 [facility] Comment on above: Performed By: #### U CLINT, CMP, LIPID, DBIL, PHOS, MG #### [facility] [address] [place] [address] Dr. Brea Causey PHOSPHORUSon 01-04-2022 Phosphate [Mass/Vol] 4.4 mg/dL Normal 2.6-4.7 [facility] Comment on above: Performed By: #### U CLINT, CMP, LIPID, DBIL, PHOS, MG #### [facility] [address] [place] [address] Dr. Brea Causey PROF 14(COMP METB)on 022 Albumin [Mass/Vol] 3.9 g/dL Normal 3.4-5.0 [facility] Comment on above: Performed By: #### U CLINT, CMP, LIPID, DBIL, PHOS, MG #### [facility] [address] [place] [address] Dr. Brea Causey Albumin/Globulin [Mass ratio] 1.2 {ratio} Normal [facility] Comment on above: Performed By: #### U CLINT, CMP, LIPID, DBIL, PHOS, MG #### [facility] [address] [place] [address] Dr. Brea Causey ALP [Catalytic activity/Vol] 155 U/L Critically high 46-116 [facility] Comment on above: Performed By: #### U CLINT, CMP, LIPID, DBIL, PHOS, MG #### [facility] [address] [place] [address] Dr. Brea Causey ALT [Catalytic activity/Vol] 27 U/L Normal 16-63 [facility] Comment on above: Performed By: #### U CLINT, CMP, LIPID, DBIL, PHOS, MG #### [facility] [address] [place] [address] Dr. Brea Causey Anion gap [Moles/Vol] 14.6 mmol/L Normal [facility] Comment on above: Performed By: #### U CLINT, CMP, LIPID, DBIL, PHOS, MG #### [facility] [address] [address] [address] Brea Causey AST [Catalytic activity/Vol] 17 U/L Normal 15-37 [facility] Comment on above: Performed By: #### U CLINT, CMP, LIPID, DBIL, PHOS, MG #### [facility] [address] [address] [address] Brea Causey Bilirubin [Mass/Vol] 0.3 mg/dL Normal 0.2-1.0 [facility] Comment on above: Performed By: #### U CLINT, CMP, LIPID, DBIL, PHOS, MG #### [facility] [address] [place] [address] Dr. Brea Causey Calcium [Mass/Vol] 8.1 mg/dL Critically low 8.5-10.1 [facility] Comment on above: Performed By: #### U CLINT, CMP, LIPID, DBIL, PHOS, MG #### [facility] [address] [address] [address] Brea Causey Chloride [Moles/Vol] 99 mmol/L Normal 98-107 [facility] Comment on above: Performed By: #### U CLINT, CMP, LIPID, DBIL, PHOS, MG #### [facility] [address] [place] [address] Dr. Brea Causey CO2 [Moles/Vol] 25.0 mmol/L Normal 21.0-32.0 [facility] Comment on above: Performed By: #### U CLINT, CMP, LIPID, DBIL, PHOS, MG #### [facility] [address] [place] [address] Dr. Brea Causey Creatinine [Mass/Vol] 1.05 mg/dL Normal 0.70-1.30 [facility] Comment on above: Performed By: #### U CLINT, CMP, LIPID, DBIL, PHOS, MG #### [facility] [address] [address] [address] Brea Causey EGFR-AF LITHUANIAN >60 Normal >=60 [facility] Comment on above: Performed By: #### U CLINT, CMP, LIPID, DBIL, PHOS, MG #### [facility] [address] [place] [address] Dr. Brea Causey EGFR-NON AF LITHUANIAN >60 Normal >=60 [facility] Comment on above: Performed By: #### U CLINT, CMP, LIPID, DBIL, PHOS, MG #### [facility] [address] [place] [address] Dr. Brea Causey Globulin (S) [Mass/Vol] 3.2 g/dL Normal [facility] Comment on above: Performed By: #### U CLINT, CMP, LIPID, DBIL, PHOS, MG #### [facility] [address] [place] [address] Dr. Brea Causey Glucose [Mass/Vol] 177 mg/dL Critically high 74-106 [facility] Comment on above: Performed By: #### U CLINT, CMP, LIPID, DBIL, PHOS, MG #### [facility] [address] [place] [address] Dr. Brea Causey Potassium [Moles/Vol] 4.6 mmol/L Normal 3.5-5.1 [facility] Comment on above: Performed By: #### U CLINT, CMP, LIPID, DBIL, PHOS, MG #### [facility] [address] [place] [address] Dr. Brea Causey Protein [Mass/Vol] 7.1 g/dL Normal 6.4-8.2 [facility] Comment on above: Performed By: #### U CLINT, CMP, LIPID, DBIL, PHOS, MG #### [facility] [address] [address] [address] Brea Causey Sodium [Moles/Vol] 134 mmol/L Critically low 136-145 [facility] Comment on above: Performed By: #### U CLINT, CMP, LIPID, DBIL, PHOS, MG #### [facility] [address] [address] [address] Brea Causey Urea nitrogen [Mass/Vol] 14.0 mg/dL Normal 7.0-18.0 [facility] Comment on above: Performed By: #### U CLINT, CMP, LIPID, DBIL, PHOS, MG #### [facility] [address] [place] [address] Dr. Brea Causey Urea nitrogen/Creatinine [Mass ratio] 13.3 mg/mg Normal [facility] Comment on above: Performed By: #### U CLINT, CMP, LIPID, DBIL, PHOS, MG #### [facility] [address] [place] [address] Dr. Brea Causey URIC ACID SERUMon 01-04-2022 Urate [Mass/Vol] 7.6 mg/dL Critically high 3.5-7.2 [facility] Comment on above: Performed By: #### U CLINT, CMP, LIPID, DBIL, PHOS, MG #### [facility] [address] [place] [address] Dr. Brea Causey BK VIRUS PCR QUANTon 022 BKV DNA QUANT PCR PLASMA Negative Normal Negative [facility] Comment on above: Result Comment: No B K DNA detected. . The linear range of the assay is 22 - 100,000,000 IU/mL. Performed By: #### B KVIRUS #### [facility] [address] [place] [address] Dr. Brea Causey Log10 BKV DNA Plasma Normal [facility] Comment on above: Performed By: #### B KVIRUS #### [facility] [address] [place] [address] Dr. Brea Causey FK506 (TACROLIMUS) WHOLE BLO ODon 12-03-2021 Tacrolimus (FK506), Blood 5.6 ng/mL Normal 2.0-20.0 [facility] Comment on above: Result Comment: Trou gh (immediately following transplant) 15.0 . Trough (steady state, 2 weeks or more after transplant): 3.0 - 8.0 . Performed by LC-MS/MS technology. Performed By: #### U CLINT, CMP, LIPID, DBIL, PHOS, MG #### [facility] [address] [place] [address] Dr. Brea Causey TESTOSTERONE, FREE,DIRECT, T OTALon 12-03-2021 Free Testosterone(Direct) 7.5 pg/mL Normal 6.6-18.[address] [facility] Comment on above: Result Comment: Perf ormed at: BN Performed By: #### U CLINT, CMP, LIPID, DBIL, PHOS, MG #### [facility] [address] [place] [address] Dr. Brea Causey Testosterone [Mass/Vol] 467 ng/dL Normal 264-916 [facility] Comment on above: Result Comment: Adul t male reference interval is based on a population of healthy nonobese males (BMI <30) between 19 and 39 years old. Steven, et.al. JCEM 2017,102;8572-0219. PMID: [id number]. Performed at: CB Performed By: #### U CLINT, CMP, LIPID, DBIL, PHOS, MG #### [facility] [address] [place] [address] Dr. Brea Causey BILIRUBIN CONJUGATED (DIRECT )on 11-30-2021 BILI, CONJUGATED 0.2 mg/dL Normal 0.0-0.2 [facility] Comment on above: Performed By: #### B KVIRUS #### [facility] [address] [place] [address] Dr. Brea Causey CBC AUTO DIFFon 11-30-2021 BASO # 0.0 103/ul Normal 0.0-0.1 [facility] Comment on above: Performed By: #### U CLINT, CMP, LIPID, DBIL, PHOS, MG #### [facility] [address] [place] [address] Dr. Brea Causey Basophils/100 WBC (Bld) 0.6 % Normal 0.2-2.0 [facility] Comment on above: Performed By: #### U CLINT, CMP, LIPID, DBIL, PHOS, MG #### [facility] [address] [place] [address] Dr. Brea Causey EO # 0.2 103/ul Normal 0.0-0.7 [facility] Comment on above: Performed By: #### U CLINT, CMP, LIPID, DBIL, PHOS, MG #### [facility] [address] [address] [address] Brea Causey Eosinophils/100 WBC (Bld) 2.7 % Normal 0.9-7.0 [facility] Comment on above: Performed By: #### U CLINT, CMP, LIPID, DBIL, PHOS, MG #### [facility] [address] [address] [address] Brea Causey Erythrocyte distribution width (RBC) [Ratio] 13.0 % Normal 11.0-15.0 [facility] Comment on above: Performed By: #### U CLINT, CMP, LIPID, DBIL, PHOS, MG #### [facility] [address] [place] [address] Dr. Brea Causey Hematocrit (Bld) [Volume fraction] 37.6 % Critically low 42.0-54.0 [facility] Comment on above: Performed By: #### U CLINT, CMP, LIPID, DBIL, PHOS, MG #### [facility] [address] [place] [address] Dr. Brea Causey Hemoglobin (Bld) [Mass/Vol] 12.4 g/dL Critically low 14.0-18.0 [facility] Comment on above: Performed By: #### U CLINT, CMP, LIPID, DBIL, PHOS, MG #### [facility] [address] [address] [address] Brea Causey IG # 0.06 10e3/ul Critically high 0.00-0.03 [facility] Comment on above: Performed By: #### U CLINT, CMP, LIPID, DBIL, PHOS, MG #### [facility] [address] [address] [address] Brea Causey IG % 0.9 % Critically high 0.0-0.5 [facility] Comment on above: Performed By: #### U CLINT, CMP, LIPID, DBIL, PHOS, MG #### [facility] [address] [place] [address] Dr. Brea Causey LYMPH # 1.0 103/ul Critically low 1.2-3.8 [facility] Comment on above: Performed By: #### U CLINT, CMP, LIPID, DBIL, PHOS, MG #### [facility] [address] [place] [address] Dr. Brea Causey Lymphocytes/100 WBC (Bld) 14.6 % Critically low 20.5-60.0 [facility] Comment on above: Performed By: #### U CLINT, CMP, LIPID, DBIL, PHOS, MG #### [facility] [address] [place] [address] Dr. Brea Causey MANUAL DIFF REQ NO Normal [facility] Comment on above: Performed By: #### U CLINT, CMP, LIPID, DBIL, PHOS, MG #### [facility] [address] [place] [address] Dr. Brea Causey MCH (RBC) [Entitic mass] 29.4 pg Normal 25.9-34.0 [facility] Comment on above: Performed By: #### U CLINT, CMP, LIPID, DBIL, PHOS, MG #### [facility] [address] [place] [address] Dr. Brea Causey MCHC (RBC) [Mass/Vol] 33.0 g/dL Normal 29.9-35.2 [facility] Comment on above: Performed By: #### U CLINT, CMP, LIPID, DBIL, PHOS, MG #### [facility] [address] [place] [address] Dr. Brea Causey MCV (RBC) [Entitic vol] 89.1 fL Normal 80.0-94.0 [facility] Comment on above: Performed By: #### U CLINT, CMP, LIPID, DBIL, PHOS, MG #### [facility] [address] [place] [address] Dr. Brea Causey MONO # 0.7 103/ul Normal 0.3-0.8 [facility] Comment on above: Performed By: #### U CLINT, CMP, LIPID, DBIL, PHOS, MG #### [facility] [address] [place] [address] Dr. Brea Causey Monocytes/100 WBC (Bld) 10.0 % Normal 1.7-12.0 [facility] Comment on above: Performed By: #### U CLINT, CMP, LIPID, DBIL, PHOS, MG #### [facility] [address] [place] [address] Dr. Brea Causey NEUT # 4.8 103/ul Normal 1.4-6.5 [facility] Comment on above: Performed By: #### U CLINT, CMP, LIPID, DBIL, PHOS, MG #### [facility] [address] [place] [address] Dr. Brea Causey Neutrophils/100 WBC (Bld) 71.2 % Normal 43.0-75.0 [facility] Comment on above: Performed By: #### U CLINT, CMP, LIPID, DBIL, PHOS, MG #### [facility] [address] [place] [address] Dr. Brea Causey Platelet mean volume (Bld) [Entitic vol] 9.0 fL Critically low 9.5-13.5 [facility] Comment on above: Performed By: #### U CLINT, CMP, LIPID, DBIL, PHOS, MG #### [facility] [address] [place] [address] Dr. Brea Causey PLT 280 103/ul Normal 150-450 [facility] Comment on above: Performed By: #### U CLINT, CMP, LIPID, DBIL, PHOS, MG #### [facility] [address] [place] [address] Dr. Brea Causey RBC 4.22 106/ul Critically low 4.70-6.10 [facility] Comment on above: Performed By: #### U CLINT, CMP, LIPID, DBIL, PHOS, MG #### [facility] [address] [place] [address] Dr. Brea Causey WBC 6.7 103/ul Normal 4.0-11.0 [facility] Comment on above: Performed By: #### U CLINT, CMP, LIPID, DBIL, PHOS, MG #### [facility] [address] [place] [address] Dr. Brea Causey GLYCOHEMOGLOBIN A1Con 2021 ADA RECOMMENDATION SEE BELOW Normal [facility] Comment on above: Result Comment: ADA RECOMMENDED LIMIT 4.0 - 6.0 ADA THERAPEUTIC TARGET < 7.0 ACTION SUGGESTED > 7.0 Performed By: #### B KVIRUS #### [facility] [address] [address] [address] Brea Causey Glucose [Mass/Vol] 171 mg/dL Normal [facility] Comment on above: Performed By: #### B KVIRUS #### [facility] [address] [address] [address] Brea Causey HbA1c (Bld) [Mass fraction] 7.6 % Critically high 4.5-6.2 [facility] Comment on above: Performed By: #### B KVIRUS #### [facility] [address] [place] [address] Dr. Brea Causey LIPID PROFILEon 11-30-2021 CHOL-HDL RATIO NORM SEE BELOW Normal [facility] Comment on above: Result Comment: 3.3 - 4.4 LOW RISK 4.4 - 7.1 AVERAGE RISK 7.1 - 11.0 MODERATE RISK >11.0 HIGH RISK Performed By: #### C BC #### [facility] [address] [place] [address] Dr. Brea Causey Cholesterol [Mass/Vol] 75 mg/dL Normal <=200 [facility] Comment on above: Performed By: #### C BC #### [facility] [address] [address] [address] Brea Causey Cholesterol in HDL [Mass/Vol] 41 mg/dL Normal 40-60 [facility] Comment on above: Performed By: #### C BC #### [facility] [address] [address] [address] Brea Causey Cholesterol in LDL [Mass/Vol] 18.6 mg/dL Normal [facility] Comment on above: Performed By: #### C BC #### [facility] [address] [place] [address] Dr. Brea Causey Cholesterol.total/Cho lesterol in HDL [Mass ratio] 1.8 {ratio} Normal [facility] Comment on above: Performed By: #### C BC #### [facility] [address] [address] [address] Brea Causey HDL NORMAL > or = 60 mg/dl - LO W CARDIOVASCULAR RISK <40 mg/dl - HIGH CARDIOVASCULAR RISK Normal [facility] Comment on above: Performed By: #### C BC #### [facility] [address] [place] [address] Dr. Brea Causey LDL CALC NORMAL SEE BELOW Normal [facility] Comment on above: Result Comment: <100 mg/dl OPTIMAL 100 - 129 mg/dl NEAR OR ABOVE OPTIMAL 130 - 159 mg/dl BORDERLINE HIGH 160 - 189 mg/dl HIGH >190 mg/dl VERY HIGH Performed By: #### C BC #### [facility] [address] [place] [address] Dr. Brea Causey Triglyceride [Mass/Vol] 77 mg/dL Normal <=150 [facility] Comment on above: Performed By: #### C BC #### [facility] [address] [place] [address] Dr. Brea Causey VLDL CALC 15.4 mg/dL Normal [facility] Comment on above: Performed By: #### C BC #### [facility] [address] [place] [address] Dr. Brea Causey MAGNESIUMon 11-30-2021 Magnesium [Mass/Vol] 1.4 mg/dL Critically low 1.8-2.4 [facility] Comment on above: Performed By: #### B KVIRUS #### [facility] [address] [place] [address] Dr. Brea Causey PHOSPHORUSon 11-30-2021 Phosphate [Mass/Vol] 4.1 mg/dL Normal 2.6-4.7 [facility] Comment on above: Performed By: #### C BC #### [facility] [address] [place] [address] Dr. Brea Causey PROF 14(COMP METB)on Albumin [Mass/Vol] 4.2 g/dL Normal 3.4-5.0 [facility] Comment on above: Performed By: #### C BC #### [facility] [address] [address] [address] Brea Causey Albumin/Globulin [Mass ratio] 1.3 {ratio} Normal [facility] Comment on above: Performed By: #### C BC #### [facility] [address] [place] [address] Dr. Brea Causey ALP [Catalytic activity/Vol] 148 U/L Critically high 46-116 [facility] Comment on above: Performed By: #### C BC #### [facility] [address] [place] [address] Dr. Brea Causey ALT [Catalytic activity/Vol] 36 U/L Normal 16-63 [facility] Comment on above: Performed By: #### C BC #### [facility] [address] [place] [address] Dr. Brea Causey Anion gap [Moles/Vol] 14.7 mmol/L Normal [facility] Comment on above: Performed By: #### C BC #### [facility] [address] [place] [address] Dr. Brea Causey AST [Catalytic activity/Vol] 21 U/L Normal 15-37 [facility] Comment on above: Performed By: #### C BC #### [facility] [address] [place] [address] Dr. Brea Causey Bilirubin [Mass/Vol] 0.4 mg/dL Normal 0.2-1.0 [facility] Comment on above: Performed By: #### C BC #### [facility] [address] [place] [address] Dr. Brea Causey Calcium [Mass/Vol] 8.3 mg/dL Critically low 8.5-10.1 [facility] Comment on above: Performed By: #### C BC #### [facility] [address] [place] [address] Dr. Brea Causey Chloride [Moles/Vol] 98 mmol/L Normal 98-107 [facility] Comment on above: Performed By: #### C BC #### [facility] [address] [place] [address] Dr. Brea Causey CO2 [Moles/Vol] 27.2 mmol/L Normal 21.0-32.0 [facility] Comment on above: Performed By: #### C BC #### [facility] [address] [place] [address] Dr. Brea Causey Creatinine [Mass/Vol] 1.10 mg/dL Normal 0.70-1.30 [facility] Comment on above: Performed By: #### C BC #### [facility] [address] [place] [address] Dr. Brea Causey EGFR-AF LITHUANIAN >60 Normal >=60 [facility] Comment on above: Performed By: #### C BC #### [facility] [address] [place] [address] Dr. Brea Causey EGFR-NON AF LITHUANIAN >60 Normal >=60 [facility] Comment on above: Performed By: #### C BC #### [facility] [address] [place] [address] Dr. Brea Causey Globulin (S) [Mass/Vol] 3.2 g/dL Normal [facility] Comment on above: Performed By: #### C BC #### [facility] [address] [place] [address] Dr. Brea Causey Glucose [Mass/Vol] 173 mg/dL Critically high 74-106 [facility] Comment on above: Performed By: #### C BC #### [facility] [address] [place] [address] Dr. Brea Causey Potassium [Moles/Vol] 4.9 mmol/L Normal 3.5-5.1 [facility] Comment on above: Performed By: #### C BC #### [facility] [address] [place] [address] Dr. Brea Causey Protein [Mass/Vol] 7.4 g/dL Normal 6.4-8.[address] [facility] Comment on above: Performed By: #### C BC #### [facility] [address] [place] [address] Dr. Brea Causey Sodium [Moles/Vol] 135 mmol/L Critically low 136-145 [facility] Comment on above: Performed By: #### C BC #### [facility] [address] [place] [address] Dr. Brea Causey Urea nitrogen [Mass/Vol] 14.0 mg/dL Normal 7.0-18.0 [facility] Comment on above: Performed By: #### C BC #### [facility] [address] [place] [address] Dr. Brea Causey Urea nitrogen/Creatinine [Mass ratio] 12.7 mg/mg Normal [facility] Comment on above: Performed By: #### C BC #### [facility] [address] [place] [address] Dr. Brea Causey URIC ACID SERUMon 11-30-2021 Urate [Mass/Vol] 7.8 mg/dL Critically high 3.5-7.2 [facility] Comment on above: Performed By: #### C BC #### [facility] [address] [place] [address] Dr. Brea Causey BNPon 11-14-2021 Natriuretic peptide B (Bld) [Mass/Vol] 350.0 pg/mL Normal <=900.0 [facility] Comment on above: Performed By: #### C BC #### [facility] [address] [place] [address] Dr. Brea Causey CBC AUTO DIFFon 11-14-2021 BASO # 0.0 103/ul Normal 0.0-0.1 [facility] Comment on above: Performed By: #### C BC #### [facility] [address] [place] [address] Dr. Brea Causey Basophils/100 WBC (Bld) 0.1 % Critically low 0.2-2.0 [facility] Comment on above: Performed By: #### C BC #### [facility] [address] [place] [address] Dr. Brea Causey EO # 0.2 103/ul Normal 0.0-0.7 [facility] Comment on above: Performed By: #### C BC #### [facility] [address] [address] [address] Brea Causey Eosinophils/100 WBC (Bld) 1.4 % Normal 0.9-7.0 [facility] Comment on above: Performed By: #### C BC #### [facility] [address] [place] [address] Dr. Brea Causey Erythrocyte distribution width (RBC) [Ratio] 13.1 % Normal 11.0-15.0 [facility] [facility] Comment on above: Performed By: #### C BC #### [facility] [address] [place] [address] Dr. Brea Causey Hematocrit (Bld) [Volume fraction] 39.4 % Critically low 42.0-54.0 [facility] Comment on above: Performed By: #### C BC #### [facility] [address] [place] [address] Dr. Brea Causey Hemoglobin (Bld) [Mass/Vol] 13.2 g/dL Critically low 14.0-18.0 [facility] Comment on above: Performed By: #### C BC #### [facility] [address] [place] [address] Dr. Brea Causey IG # 0.11 10e3/ul Critically high 0.00-0.03 [facility] Comment on above: Performed By: #### C BC #### [facility] [address] [place] [address] Dr. Brea Causey IG % 0.6 % Critically high 0.0-0.5 [facility] Comment on above: Performed By: #### C BC #### [facility] [address] [place] [address] Dr. Brea Causey LYMPH # 1.1 103/ul Critically low 1.2-3.8 [facility] Comment on above: Performed By: #### C BC #### [facility] [address] [place] [address] Dr. Brea Causey Lymphocytes/100 WBC (Bld) 6.7 % Critically low 20.5-60.0 [facility] Comment on above: Performed By: #### C BC #### [facility] [address] [address] [address] Brea Causey MANUAL DIFF REQ NO Normal [facility] Comment on above: Performed By: #### C BC #### [facility] [address] [place] [address] Dr. Brea Causey MCH (RBC) [Entitic mass] 29.5 pg Normal 25.9-34.0 [facility] Comment on above: Performed By: #### C BC #### [facility] [address] [place] [address] Dr. Brea Causey MCHC (RBC) [Mass/Vol] 33.5 g/dL Normal 29.9-35.2 [facility] Comment on above: Performed By: #### C BC #### [facility] [address] [place] [address] Dr. Brea Causey MCV (RBC) [Entitic vol] 88.1 fL Normal 80.0-94.0 [facility] Comment on above: Performed By: #### C BC #### [facility] [address] [place] [address] Dr. Brea Causey MONO # 1.5 103/ul Critically high 0.3-0.8 [facility] Comment on above: Performed By: #### C BC #### [facility] [address] [place] [address] Dr. Brea Causey Monocytes/100 WBC (Bld) 8.6 % Normal 1.7-12.0 [facility] Comment on above: Performed By: #### C BC #### [facility] [address] [place] [address] Dr. Brea Causey NEUT # 14.0 103/ul Critically high 1.4-6.5 [facility] Comment on above: Performed By: #### C BC #### [facility] [address] [place] [address] Dr. Brea Causey Neutrophils/100 WBC (Bld) 82.6 % Critically high 43.0-75.0 [facility] Comment on above: Performed By: #### C BC #### [facility] [address] [address] [address] Brea Causey Platelet mean volume (Bld) [Entitic vol] 9.5 fL Normal 9.5-13.5 [facility] Comment on above: Performed By: #### C BC #### [facility] [address] [address] [address] Brea Causey PLT 303 103/ul Normal 150-450 [facility] Comment on above: Performed By: #### C BC #### [facility] [address] [address] [address] Brea Causey RBC 4.47 106/ul Critically low 4.70-6.10 [facility] Comment on above: Performed By: #### C BC #### [facility] [address] [address] [address] Brea Causey WBC 17.0 103/ul Critically high 4.0-11.0 [facility] Comment on above: Performed By: #### C BC #### [facility] [address] [address] [address] Brea Cause[facility]on SARS-CoV-2 (COVID-19) RNA ISI+probe Ql (Unsp spec) Not detected Normal NOT DETECTED [facility] Comment on above: Result Comment: When [...] for this test is supported by the [place] of Health and Human Service's declaration that [...] CLINT, CMP, LIPID, DBIL, PHOS, MG #### [facility] [address] [address] [address] Brea Causey ER URINE PROFILEon 2 Bilirubin Ql (U) Negative Normal NEGATIVE [facility] Comment on above: Performed By: #### U CLINT, CMP, LIPID, DBIL, PHOS, MG #### [facility] [address] [place] [address] Dr. Brea Causey Clarity (U) CLEAR Normal CLEAR [facility] Comment on above: Performed By: #### U CLINT, CMP, LIPID, DBIL, PHOS, MG #### [facility] [address] [place] [address] Dr. Brea Causey Color (U) YELLOW Normal YELLOW [facility] Comment on above: Performed By: #### U CLINT, CMP, LIPID, DBIL, PHOS, MG #### [facility] [address] [place] [address] Dr. Brea RAZAAHTatum A micrscopic examination will be performed if indicated. Normal [facility] Comment on above: Performed By: #### U CLINT, CMP, LIPID, DBIL, PHOS, MG #### [facility] [address] [place] [address] Dr. Brea Causey Glucose Ql (U) Negative Normal NEGATIVE [facility] Comment on above: Performed By: #### U CLINT, CMP, LIPID, DBIL, PHOS, MG #### [facility] [address] [place] [address] Dr. Brea Causey Hemoglobin Ql (U) Negative Normal NEGATIVE [facility] Comment on above: Performed By: #### U CLINT, CMP, LIPID, DBIL, PHOS, MG #### [facility] [address] [place] [address] Dr. Brea Causey Ketones Ql (U) Negative Normal NEGATIVE [facility] Comment on above: Performed By: #### U CLINT, CMP, LIPID, DBIL, PHOS, MG #### [facility] [address] [place] [address] Dr. Yilan Causey LEUKOCYTES Negative Normal NEGATIVE [facility] Comment on above: Performed By: #### U CLINT, CMP, LIPID, DBIL, PHOS, MG #### [facility] [address] [address] [address] Brea Causey Nitrite Ql (U) Negative Normal NEGATIVE [facility] Comment on above: Performed By: #### U CLINT, CMP, LIPID, DBIL, PHOS, MG #### [facility] [address] [address] [address] Brea Causey pH (U) 6.0 [pH] Normal 5-9 [facility] Comment on above: Performed By: #### U CLINT, CMP, LIPID, DBIL, PHOS, MG #### [facility] [address] [place] [address] Dr. Brea Causey SPEC GRAVITY <=1.005 Abnormal 1.005-<=1.025 [facility] Comment on above: Performed By: #### U CLINT, CMP, LIPID, DBIL, PHOS, MG #### [facility] [address] [address] [address] Brea Causey UA PROTEIN Negative Normal NEGATIVE/ TRACE [facility] Comment on above: Performed By: #### U CLINT, CMP, LIPID, DBIL, PHOS, MG #### [facility] [address] [address] [address] Brea Causey UR MICRO IND NOT INDICATED Normal [facility] Comment on above: Performed By: #### U CLINT, CMP, LIPID, DBIL, PHOS, MG #### [facility] [address] [place] [address] Dr. Brea Causey Urobilinogen Qn (U) 0.2 {Sabine'U}/dL Normal 0.2 - 1. 0 [facility] Comment on above: Performed By: #### U CLINT, CMP, LIPID, DBIL, PHOS, MG #### [facility] [address] [place] [address] Dr. Brea Causey GI PANEL (PCR)on 11-14-2021 Adenovirus F 40/41 Not detected Normal NOT DETECTED [facility] Comment on above: Performed By: #### U CLINT, CMP, LIPID, DBIL, PHOS, MG #### [facility] [address] [place] [address] Dr. Brea Causey Astrovirus Not detected Normal NOT DETECTED [facility] Comment on above: Performed By: #### U CLINT, CMP, LIPID, DBIL, PHOS, MG #### [facility] [address] [place] [address] Dr. Brea Causey C. Diff toxin A/B Not detected Normal NOT DETECTED [facility] Comment on above: Performed By: #### U CLINT, CMP, LIPID, DBIL, PHOS, MG #### [facility] [address] [place] [address] Dr. Brea Causey Campylobacter Not detected Normal NOT DETECTED [facility] Comment on above: Performed By: #### U CLINT, CMP, LIPID, DBIL, PHOS, MG #### [facility] [address] [place] [address] Dr. Brea Causey Cryptosporidium Not detected Normal NOT DETECTED [facility] Comment on above: Performed By: #### U CLINT, CMP, LIPID, DBIL, PHOS, MG #### [facility] [address] [place] [address] Dr. Brea Causey Cyclos. Cayetanensis Not detected Normal NOT DETECTED [facility] Comment on above: Performed By: #### U CLINT, CMP, LIPID, DBIL, PHOS, MG #### [facility] [address] [place] [address] Dr. Brea Causey E. Coli O157 Not Applicable Normal Not Applicable [facility] Comment on above: Performed By: #### U CLINT, CMP, LIPID, DBIL, PHOS, MG #### [facility] [address] [place] [address] Dr. Brea Causey E. histolytica Not detected Normal NOT DETECTED [facility] Comment on above: Performed By: #### U CLINT, CMP, LIPID, DBIL, PHOS, MG #### [facility] [address] [place] [address] Dr. Brea Causey EAEC Not detected Normal NOT DETECTED [facility] Comment on above: Performed By: #### U CLINT, CMP, LIPID, DBIL, PHOS, MG #### [facility] [address] [place] [address] Dr. Brea Causey EIEC Not detected Normal NOT DETECTED [facility] Comment on above: Performed By: #### U CLINT, CMP, LIPID, DBIL, PHOS, MG #### [facility] [address] [place] [address] Dr. Brea Causey EPEC Not detected Normal NOT DETECTED [facility] Comment on above: Performed By: #### U CLINT, CMP, LIPID, DBIL, PHOS, MG #### [facility] [address] [place] [address] Dr. Brea Causey ETEC Not detected Normal NOT DETECTED [facility] Comment on above: Performed By: #### U CLINT, CMP, LIPID, DBIL, PHOS, MG #### [facility] [address] [place] [address] Dr. Brea Causey G. Lamblia Not detected Normal NOT DETECTED [facility] Comment on above: Performed By: #### U CLINT, CMP, LIPID, DBIL, PHOS, MG #### [facility] [address] [place] [address] Dr. Brea HUTTONANEL CONTROLS PASSED Normal [facility] Comment on above: Performed By: #### U CLINT, CMP, LIPID, DBIL, PHOS, MG #### [facility] [address] [place] [address] Dr. Brea DARDEN DAVID HEADER GI PANEL BACTERIA Normal [facility] Comment on above: Performed By: #### U CLINT, CMP, LIPID, DBIL, PHOS, MG #### [facility] [address] [place] [address] Dr. Brea DARDENHD ECOLI GI PANEL DIARRHEAGENIC E.COLI / SHIGELLA Normal [facility] Comment on above: Performed By: #### U CLINT, CMP, LIPID, DBIL, PHOS, MG #### [facility] [address] [address] [address] Brea Causey [facility] INFO SEE BELOW Normal [facility] Comment on above: Result Comment: EAEC - Enteroaggregative E. Coli EPEC- Enteropathogenic E. Coli ETEC- Enterotoxigenic E. Coli lt/st STEC- Shigella-like toxin-producing E. Coli stx1/stx2 EIEC- Shigella/Enteroinvasive E. Coli Performed By: #### U CLINT, CMP, LIPID, DBIL, PHOS, MG #### [facility] [address] [address] [address] Brea PINTO PARASITES GI PANEL PARASITES Normal [facility] Comment on above: Performed By: #### U CLINT, CMP, LIPID, DBIL, PHOS, MG #### [facility] [address] [address] [address] Brea PINTO VIRUS GI PANEL VIRUSES Normal [facility] Comment on above: Performed By: #### U CLINT, CMP, LIPID, DBIL, PHOS, MG #### [facility] [address] [address] [address] Brea Causey Norovirus GI/GII Not detected Normal NOT DETECTED [facility] Comment on above: Performed By: #### U CLINT, CMP, LIPID, DBIL, PHOS, MG #### [facility] [address] [address] [address] Brea Causey P. Shigelloides Not detected Normal NOT DETECTED [facility] Comment on above: Performed By: #### U CLINT, CMP, LIPID, DBIL, PHOS, MG #### [facility] [address] [address] [address] Brea Causey Rotavirus A Not detected Normal NOT DETECTED [facility] Comment on above: Performed By: #### U CLINT, CMP, LIPID, DBIL, PHOS, MG #### [facility] [address] [address] [address] Brea Causey Salmonella Not detected Normal NOT DETECTED [facility] Comment on above: Performed By: #### U CLINT, CMP, LIPID, DBIL, PHOS, MG #### [facility] [address] [address] [address] Brea Causey Sapovirus Not detected Normal NOT DETECTED [facility] Comment on above: Performed By: #### U CLINT, CMP, LIPID, DBIL, PHOS, MG #### [facility] [address] [address] [address] Brea Causey STEC Not detected Normal NOT DETECTED [facility] Comment on above: Performed By: #### U CLINT, CMP, LIPID, DBIL, PHOS, MG #### [facility] [address] [address] [address] Brea Causey Vibrio Not detected Normal NOT DETECTED [facility] Comment on above: Performed By: #### U CLINT, CMP, LIPID, DBIL, PHOS, MG #### [facility] [address] [address] [address] Brea Causey Vibrio Cholera Not detected Normal NOT DETECTED [facility] Comment on above: Performed By: #### U CLINT, CMP, LIPID, DBIL, PHOS, MG #### [facility] [address] [place] [address] Dr. Brea Cuasey Y. Enterocolitica Not detected Normal NOT DETECTED [facility] Comment on above: Performed By: #### U CLINT, CMP, LIPID, DBIL, PHOS, MG #### [facility] [address] [address] [address] Brea Causey PROF 14(COMP METB)on 022 Albumin [Mass/Vol] 4.0 g/dL Normal 3.4-5.0 [facility] Comment on above: Performed By: #### C BC #### [facility] [address] [address] [address] Brea Causey Albumin/Globulin [Mass ratio] 1.3 {ratio} Normal [facility] Comment on above: Performed By: #### C BC #### [facility] [address] [place] [address] Dr. Brea Causey ALP [Catalytic activity/Vol] 142 U/L Critically high 46-116 [facility] Comment on above: Performed By: #### C BC #### [facility] [address] [address] [address] Brea Causey ALT [Catalytic activity/Vol] 39 U/L Normal 16-63 [facility] Comment on above: Performed By: #### C BC #### [facility] [address] [address] [address] Brea Causey Anion gap [Moles/Vol] 13.6 mmol/L Normal [facility] Comment on above: Performed By: #### C BC #### [facility] [address] [address] [address] Brea Causey AST [Catalytic activity/Vol] 23 U/L Normal 15-37 [facility] Comment on above: Performed By: #### C BC #### [facility] [address] [place] [address] Dr. Brea Causey Bilirubin [Mass/Vol] 0.4 mg/dL Normal 0.2-1.0 [facility] Comment on above: Performed By: #### C BC #### [facility] [address] [place] [address] Dr. Brea Causey Calcium [Mass/Vol] 8.4 mg/dL Critically low 8.5-10.1 [facility] Comment on above: Performed By: #### C BC #### [facility] [address] [place] [address] Dr. Brea Causey Chloride [Moles/Vol] 97 mmol/L Critically low 98-107 [facility] Comment on above: Performed By: #### C BC #### [facility] [address] [place] [address] Dr. Brea Causey CO2 [Moles/Vol] 26.1 mmol/L Normal 21.0-32.0 [facility] Comment on above: Performed By: #### C BC #### [facility] [address] [place] [address] Dr. Brea Causey Creatinine [Mass/Vol] 1.21 mg/dL Normal 0.70-1.30 [facility] Comment on above: Performed By: #### C BC #### [facility] [address] [address] [address] Brea Causey EGFR-AF LITHUANIAN >60 Normal >=60 [facility] Comment on above: Performed By: #### C BC #### [facility] [address] [address] [address] Brea Causey EGFR-NON AF LITHUANIAN 59 mL/min/1.73m2 Critically low >=60 [facility] Comment on above: Performed By: #### C BC #### [facility] [address] [address] [address] Brea Causey Globulin (S) [Mass/Vol] 3.2 g/dL Normal [facility] Comment on above: Performed By: #### C BC #### [facility] [address] [address] [address] Brea Causey Glucose [Mass/Vol] 227 mg/dL Critically high 74-106 [facility] Comment on above: Performed By: #### C BC #### [facility] [address] [address] [address] Brea Causey Potassium [Moles/Vol] 4.7 mmol/L Normal 3.5-5.1 [facility] Comment on above: Performed By: #### C BC #### [facility] [address] [place] [address] Dr. Brea Causey Protein [Mass/Vol] 7.2 g/dL Normal 6.4-8.2 [facility] Comment on above: Performed By: #### C BC #### [facility] [address] [address] [address] Brea Causey Sodium [Moles/Vol] 132 mmol/L Critically low 136-145 [facility] Comment on above: Performed By: #### C BC #### [facility] [address] [address] [address] Brea Causey Urea nitrogen [Mass/Vol] 12.0 mg/dL Normal 7.0-18.0 [facility] Comment on above: Performed By: #### C BC #### [facility] [address] [address] [address] Brea Causey Urea nitrogen/Creatinine [Mass ratio] 9.9 mg/mg Normal [facility] Comment on above: Performed By: #### C #### [facility] [address] [address] [address] Brea Causey CBC W/DIFFon 10-31-2021 ABS IMM GRANS 0.1 10*3/uL Normal 0.0-0.2 [facility] Comment on above: Performed By: #### 4 5506, 06240, 95982, 81974, 11639, 55252 #### [facility] [address] ABS NEUTROPHILS 5.9 10*3/uL Normal 1.6-7.6 [facility] Comment on above: Performed By: #### 4 5506, 07755, 98786, 73024, 24587, 47457 #### [facility] [address] Basophils (Bld) [#/Vol] 0.0 10*3/uL Normal 0.0-0.2 [facility] Comment on above: Performed By: #### 4 5506, 93352, 80455, 46057, 97946, 68644 #### [facility] [address] [place] [place] [address], [facility] Basophils/100 WBC (Bld) 0.3 % Normal 0.0-1.0 [facility] Comment on above: Performed By: #### 4 5506, 43198, 08635, 02745, 22024, 24587 #### [facility] [address] [place] [address], [facility] Eosinophils (Bld) [#/Vol] 0.2 10*3/uL Normal 0.0-0.5 [facility] Comment on above: Performed By: #### 4 5506, 42574, 61095, 83338, 05493, 76289 #### [facility] [address] Eosinophils/100 WBC (Bld) 2.3 % Normal 0.0-6.0 [facility] Comment on above: Performed By: #### 4 5506, 87752, 06665, 56408, 55918, 65233 #### [facility] [address] [facility]. [address] Erythrocyte distribution width (RBC) [Ratio] 13.4 % Normal 11.5-15.0 [facility] Comment on above: Performed By: #### 4 5506, 78666, 76574, 93617, 05656, 61733 #### [facility] [address] Hematocrit (Bld) [Volume fraction] 36.1 % Low 39.0-50.0 [facility] Comment on above: Performed By: #### 4 5506, 94361, 73089, 54911, 28243, 54693 #### [facility] [address] Hemoglobin (Bld) [Mass/Vol] 11.9 g/dL Low 13.0-17.0 [facility] Comment on above: Performed By: #### 4 5506, 84026, 28616, 79619, 27229, 01337 #### [facility] [address] [facility]. [address] IMMATURE GRANS 0.7 % Normal 0.0-1.0 [facility] Comment on above: Performed By: #### 4 5506, 63488, 71868, 95984, 49383, 56206 #### [facility] [address] [place] [address], [facility] Lymphocytes (Bld) [#/Vol] 0.9 10*3/uL Low 1.2-4.0 [facility] Comment on above: Performed By: #### 4 5506, 53678, 43954, 92463, 59258, 29340 #### [facility] [address] [facility] [place] [address], [facility] Lymphocytes/100 WBC (Bld) 12.1 % Low 20.0-45.0 [facility] Comment on above: Performed By: #### 4 5506, 74321, 99089, 91713, 71927, 43765 #### [facility] [address] [facility] [place] [address], [facility] MCH (RBC) [Entitic mass] 29.3 pg Normal 27.0-33.0 [facility] Comment on above: Performed By: #### 4 5506, 05097, 82521, 66678, 28805, 88445 #### [facility] [address] [place] [address], [facility] MCHC (RBC) [Mass/Vol] 33.0 g/dL Normal 32.0-35.0 [facility] Comment on above: Performed By: #### 4 5506, 52133, 09013, 27236, 06199, 57164 #### [facility] [address] [place] [address], [facility] MCV (RBC) [Entitic vol] 88.9 fL Normal 82.0-98.0 [facility] Comment on above: Performed By: #### 4 5506, 47140, 81394, 61934, 43967, 83077 #### [facility] [address] [facility] [place] [address], [facility] Monocytes (Bld) [#/Vol] 0.6 10*3/uL Normal 0.1-1.0 [facility] Comment on above: Performed By: #### 4 5506, 39823, 92918, 40343, 91763, 38420 #### [facility] [address] [place] [address], [facility] MONOS 8.3 % Normal 5.0-12.0 [facility] Comment on above: Performed By: #### 4 5506, 89799, 31706, 53588, 53550, 92543 #### [facility] [address] [place] [address], [facility] Neutrophils/100 WBC (Bld) 76.3 % High 40.0-72.0 [facility] Comment on above: Performed By: #### 4 5506, 82404, 18775, 34371, 56749, 82557 #### [facility] [address] [place] [address], [facility] Nucleated RBC/100 WBC (Bld) [Ratio] 0 % Normal 0-0 [facility] Comment on above: Performed By: #### 4 5506, 18680, 52828, 08640, 12074, 03746 #### [facility] [address] [place] [address], [facility] PLAT CNT 260 10*3/uL Normal 150-400 [facility] Comment on above: Performed By: #### 4 5506, 73550, 15471, 36436, 56991, 00278 #### [facility] [address] [place] [address], [facility] RBC (Bld) [#/Vol] 4.06 10*6/uL Low 4.20-5.70 [facility] Comment on above: Performed By: #### 4 5506, 85909, 15776, 20436, 33633, 89940 #### [facility] [address] [place] [place] [address], [facility] WBC (Bld) [#/Vol] 7.68 10*3/uL Normal 4.00-10.60 [facility] Comment on above: Performed By: #### 4 5506, 61095, 41790, 80225, 16441, 08165 #### [facility] [address] [place] [address], [facility] COMP METABOLIC PANELon 10-31 Albumin [Mass/Vol] 4.4 g/dL Normal 3.5-5.7 [facility] Comment on above: Performed By: #### 4 5506, 21425, 25085, 42161, 18575, 70027 #### [facility] [address] [place] [address], [facility] ALKALINE PHOSPH 132 IU/L High 34-104 [facility] Comment on above: Performed By: #### 4 5506, 11417, 17154, 50449, 70336, 54458 #### [facility] [address] [place] [address], [facility] ALT [Catalytic activity/Vol] 26 U/L Normal 7-52 [facility] Comment on above: Performed By: #### 4 5506, 08822, 01486, 78308, 71173, 91248 #### [facility] [address] [place] [address], [place] AST [Catalytic activity/Vol] 17 U/L Normal 13-39 [facility] Comment on above: Performed By: #### 4 5506, 16447, 80105, 08964, 09405, 48974 #### [facility] [address] [place] [address], [facility] Bilirubin [Mass/Vol] 0.4 mg/dL Normal 0.3-1.0 [facility] Comment on above: Performed By: #### 4 5506, 49362, 62090, 28117, 40122, 32809 #### [facility] [address] [place] [address], [place] Calcium [Mass/Vol] 8.6 mg/dL Normal 8.6-10.3 [facility] Comment on above: Performed By: #### 4 5506, 38010, 43226, 21616, 48546, 30334 #### [facility] [address] [place] [address], [place] Chloride [Moles/Vol] 97 mmol/L Low 98-107 [facility] Comment on above: Performed By: #### 4 5506, 89731, 89761, 25184, 11155, 01061 #### [facility] [address] [place] [address], [facility] CO2 [Moles/Vol] 26 mmol/L Normal 21-31 [facility] Comment on above: Performed By: #### 4 5506, 44815, 69485, 64309, 14766, 96654 #### [facility] [address] [place] [address], [facility] Creatinine [Mass/Vol] 1.04 mg/dL Normal 0.70-1.30 [facility] Comment on above: Performed By: #### 4 5506, 70432, 60815, 21965, 63680, 36225 #### [facility] [address] [place] [address], [facility] GFR/1.73 sq M.predicted among blacks MDRD (S/P/Bld) [Vol rate/Area] mL/min/{1.73_m2} Normal >60 [facility] Comment on above: Performed By: #### 4 5506, 47130, 96569, 42552, 55284, 67419 #### [facility] [address] [place] [address], [place] GFR/1.73 sq M.predicted among non-blacks MDRD (S/P/Bld) [Vol rate/Area] mL/min/{1.73_m2} Normal >60 [facility] Comment on above: Performed By: #### 4 5506, 63380, 53305, 18726, 54388, 98108 #### [facility] [address] [place] [address], [place] Glucose [Mass/Vol] 158 mg/dL High 70-100 [facility] Comment on above: Performed By: #### 4 5506, 60622, 11142, 30237, 33922, 04446 #### [facility] [address] [place] [address], [facility] Potassium [Moles/Vol] 4.4 mmol/L Normal 3.5-5.1 [facility] Comment on above: Performed By: #### 4 5506, 47823, 52806, 05241, 30489, 57165 #### [facility] [address] [place] [address], [facility] Protein [Mass/Vol] 6.6 g/dL Normal 6.0-8.3 [facility] Comment on above: Performed By: #### 4 5506, 67282, 45021, 95947, 62773, 89041 #### [facility] [address] [place] [address], [facility] Sodium [Moles/Vol] 131 mmol/L Low 136-145 [facility] Comment on above: Performed By: #### 4 5506, 95512, 11683, 28290, 02936, 94924 #### [facility] [address] [place] [address], [facility] Urea nitrogen [Mass/Vol] 15 mg/dL Normal 7-25 [facility] Comment on above: Performed By: #### 4 5506, 01203, 85155, 21953, 29031, 20731 #### [facility] [address] [place] [address], [facility] DIRECT BILIon 10-31-2021 Bilirubin.direct [Mass/Vol] 0.1 mg/dL Normal 0.0-0.2 [facility] Comment on above: Performed By: #### 4 5506, 91999, 39352, 61846, 70966, 56368 #### [facility] [address] [place] [address], [facility] LIPID PROFILEon 10-31-2021 Cholesterol [Mass/Vol] 70 mg/dL Low 120-200 [facility] Comment on above: Result Comment: CHOL ESTEROL REFERENCE RANGE: 20 YEARS AND OLDER CARDIOVASCULAR RISK Less than 200 mg/dl Low Risk 200 to 239 mg/dl Borderline Risk 240 mg/dl and greater High Risk Performed By: #### 4 5506, 50251, 30860, 55388, 14288, 13792 #### [facility] [address] [place] [address], [place] Cholesterol in HDL [Mass/Vol] 35 mg/dL Normal 23-92 [facility] Comment on above: Result Comment: Slig ht variation in normal range could be due to gender and/or age. HDL CHOLESTEROL REFERENCE RANGE: 20 years and older Cardiovascular Risk > or =60 mg/dL Desirable 40 TO 59 mg/dL Low Risk <40 mg/dL High Risk Performed By: #### 4 5506, 98293, 59545, 50506, 11568, 92468 #### [facility] [address] [place] [address], [place] Cholesterol in LDL [Mass/Vol] 20 mg/dL Normal 0-130 [facility] Comment on above: Result Comment: LDL IS A CALCULATION LDL IS ONLY VALID IF THE TRIG IS LESS THAN 400. Performed By: #### 4 5506, 06951, 47869, 15826, 65867, 26806 #### [facility] [address] [place] [address], [place] Cholesterol.total/Cho lesterol in HDL [Mass ratio] 2.0 {ratio} Normal .0-4.5 [facility] Comment on above: Performed By: #### 4 5506, 17507, 20355, 22334, 08765, 56758 #### [facility] [address] [place] [address], [place] NON-HDL CHOLESTEROL 35 mg/dL Normal [facility] Comment on above: Performed By: #### 4 5506, 95112, 86516, 78552, 46618, 57325 #### [facility] [address] [place] [address], [place] Triglyceride [Mass/Vol] 73 mg/dL Normal 40-149 [facility] Comment on above: Result Comment: TRIG LYCERIDE REFERENCE RANGE: 20 YEARS AND OLDER CARDIOVASCULAR RISK LESS THAN 150 mg/dl LOW RISK 150 TO 199 mg/dl BORDERLINE RISK 200 mg/dl AND GREATER HIGH RISK Performed By: #### 4 5506, 12681, 22035, 63929, 45296, 05716 #### [facility] [address] [place] [address], [facility] VLDL CHOL 15 mg/dL Normal 0-40 [facility] Comment on above: Performed By: #### 4 5506, 91865, 98694, 23053, 52057, 70508 #### [facility] [address] [place] [address], [facility] MAGNESIUM BLOODon 10-31-2021 Magnesium [Mass/Vol] 1.1 mg/dL Critically low 1.9-2.7 [facility] Comment on above: Performed By: #### 4 5506, 34641, 73629, 77263, 21981, 59990 #### [facility] [address] [place] [address], [facility] PHOSPHORUS BLOODon Phosphate [Mass/Vol] 3.0 mg/dL Normal 2.5-5.0 [facility] Comment on above: Performed By: #### 4 5506, 13690, 24436, 96463, 53312, 31482 #### [facility] [address] [place] [address], [facility] PROSPERAon 10-31-2021 PROSPERA KIT Results to be mailed directly to physician's office by reference lab. Normal [facility] Comment on above: Result Comment: Test performed by [id number] [place] [address] Specimen collected for transplant patient and sent to [facility] per instructions. No charge. No result expected. For billing and tracking purposes only. Performed By: #### 4 5506, 15403, 52125, 13174, 33084, 30070 #### [facility] [address] RESULT Results to be mailed directly to physician's office by reference lab. Normal [facility] Comment on above: Performed By: #### 4 5506, 14438, 97590, 98428, 19159, 26270 #### [facility] [address] [facility]. [address] TACROLIMUSon 10-31-2021 Tacrolimus (Bld) [Mass/Vol] 7.6 ng/mL Normal 5.0-20.0 [facility] Comment on above: Result Comment: The [employer] Tacrolimus assay is a delayed one-step immunoassay for the quantitative determination of tacrolimus in human whole blood using the chemiluminescent microparticle immunoassay (CMIA) technology with flexible assay protocols, referred to as Chemiflex. Performed By: #### 4 5506, 66563, 08236, 14520, 62459, 13401 #### [facility] [address] [facility]. [address] URIC ACID BLOODon 10-31-2021 Urate [Mass/Vol] 7.8 mg/dL High 4.4-7.6 [facility] Comment on above: Performed By: #### 4 5506, 79364, 43210, 86942, 29621, 40691 #### [facility] [address] [facility]. [address] NM PARATHYROID WITH SPECT AN D CTon 07-24-2021 NM PARATHYROID WITH SPECT AND CT [facility] Department of Radiology [address] [place] [id number] Patient Name: ROGER SUAREZ : 1950 Sex: M Age: Race: White Pt. Location: Patient Status: D Ordered Date: 06/26/2021 8:40:00 AM Completed Date: 07/24/2021 01:21 PM Requesting Provider: NAGA BOSCH Attending Provider: NAGA BOSCH Report Copy To: [email or web address] Signs & Symptoms: E21.3 Hyperparathyroidism, unspecified I10 History: Sammi NPC Req. per [facility] A/B for CPT 32401 *SLA Comments: , , , Ordering Provider [...] SPECT. Electronically signed: Nan Earl. Transcribed by: [email or web address], User Resident: Electronically Signed by: NAN EARL @ 07/27/2021 12:13 PM Normal [facility] Comment on above: Order Comment: , , = ========= , Ordering Provider - NAGA BOSCH MD , CBC W/DIFFon 06-22-2021 ABS IMM GRANS 0.1 10*3/uL Normal 0.0-0.2 [facility] Comment on above: Performed By: #### 4 5506, 28399, 98929, 03554, 66478, 98801 #### [facility] [address] ABS NEUTROPHILS 4.7 10*3/uL Normal 1.6-7.6 [facility] Comment on above: Performed By: #### 4 5506, 19599, 11806, 77280, 47504, 37473 #### [facility] [address] [place] [address], [facility] Basophils (Bld) [#/Vol] 0.0 10*3/uL Normal 0.0-0.2 [facility] Comment on above: Performed By: #### 4 5506, 97662, 04982, 34707, 70886, 64209 #### [facility] [address] [place] [address], [facility] Basophils/100 WBC (Bld) 0.6 % Normal 0.0-1.0 [facility] Comment on above: Performed By: #### 4 5506, 39871, 16914, 74924, 31788, 91682 #### [facility] [address] [facility] [place] [address], [facility] Eosinophils (Bld) [#/Vol] 0.2 10*3/uL Normal 0.0-0.5 [facility] Comment on above: Performed By: #### 4 5506, 29811, 47771, 45986, 75017, 12533 #### [facility] [address] Eosinophils/100 WBC (Bld) 2.5 % Normal 0.0-6.0 [facility] Comment on above: Performed By: #### 4 5506, 16906, 55489, 37014, 56645, 85575 #### [facility] [address] Erythrocyte distribution width (RBC) [Ratio] 13.6 % Normal 11.5-15.0 [facility] Comment on above: Performed By: #### 4 5506, 55409, 06076, 86209, 44268, 00123 #### [facility] [address] [facility]. [address] Hematocrit (Bld) [Volume fraction] 36.3 % Low 39.0-50.0 [facility] Comment on above: Performed By: #### 4 5506, 61193, 63641, 73259, 00612, 35618 #### [facility] [address] Hemoglobin (Bld) [Mass/Vol] 11.7 g/dL Low 13.0-17.0 [facility] Comment on above: Performed By: #### 4 5506, 55267, 40670, 30929, 65543, 19247 #### [facility] [address] [facility]. [address] IMMATURE GRANS 0.8 % Normal 0.0-1.0 [facility] Comment on above: Performed By: #### 4 5506, 86559, 60165, 18294, 51434, 89996 #### [facility] [address] Lymphocytes (Bld) [#/Vol] 0.9 10*3/uL Low 1.2-4.0 [facility] Comment on above: Performed By: #### 4 5506, 78954, 47017, 52574, 21452, 74922 #### [facility] [address] [place] [address], [facility] Lymphocytes/100 WBC (Bld) 13.6 % Low 20.0-45.0 [facility] Comment on above: Performed By: #### 4 5506, 51058, 46138, 42068, 74370, 52174 #### [facility] [address] [place] [address], [facility] MCH (RBC) [Entitic mass] 28.6 pg Normal 27.0-33.0 [facility] Comment on above: Performed By: #### 4 5506, 12851, 85555, 33196, 95703, 82219 #### [facility] [address] [place] [address], [facility] MCHC (RBC) [Mass/Vol] 32.2 g/dL Normal 32.0-35.0 [facility] Comment on above: Performed By: #### 4 5506, 43487, 65764, 56504, 65485, 65329 #### [facility] [address] [place] [address], [facility] MCV (RBC) [Entitic vol] 88.8 fL Normal 82.0-98.0 [facility] Comment on above: Performed By: #### 4 5506, 99916, 36681, 39525, 80090, 33793 #### [facility] [address] [place] [address], [facility] Monocytes (Bld) [#/Vol] 0.6 10*3/uL Normal 0.1-1.0 [facility] Comment on above: Performed By: #### 4 5506, 90015, 66573, 21624, 96542, 92572 #### [facility] [address] [place] [address], [facility] MONOS 9.6 % Normal 5.0-12.0 [facility] Comment on above: Performed By: #### 4 5506, 77879, 96321, 65808, 16372, 17760 #### [facility] [address] [place] [address], [facility] Neutrophils/100 WBC (Bld) 72.9 % High 40.0-72.0 [facility] Comment on above: Performed By: #### 4 5506, 08860, 83871, 93350, 24964, 84742 #### [facility] [address] [place] [address], [facility] Nucleated RBC/100 WBC (Bld) [Ratio] 0 % Normal 0-0 [facility] Comment on above: Performed By: #### 4 5506, 20310, 48758, 01785, 49626, 67885 #### [facility] [address] [place] [address], [facility] PLAT CNT 263 10*3/uL Normal 150-400 [facility] Comment on above: Performed By: #### 4 5506, 38485, 93233, 10150, 86465, 70919 #### [facility] [address] [place] [address], [facility] RBC (Bld) [#/Vol] 4.09 10*6/uL Low 4.20-5.70 [facility] Comment on above: Performed By: #### 4 5506, 59776, 89031, 01962, 87109, 95650 #### [facility] [address] [place] [address], [place] WBC (Bld) [#/Vol] 6.45 10*3/uL Normal 4.00-10.60 [facility] Comment on above: Performed By: #### 4 5506, 97952, 13144, 22133, 86561, 23038 #### [facility] [address] [place] [address], [place] COMP METABOLIC PANELon 06-22 Albumin [Mass/Vol] 4.3 g/dL Normal 3.5-5.7 [facility] Comment on above: Performed By: #### 4 5506, 02849, 97784, 74365, 42226, 91061 #### [facility] [address] [place] [address], [facility] ALKALINE PHOSPH 143 IU/L High 34-104 [facility] Comment on above: Performed By: #### 4 5506, 20987, 76083, 33074, 60433, 34595 #### [facility] [address] [place] [address], [place] ALT [Catalytic activity/Vol] 18 U/L Normal 7-52 [facility] Comment on above: Performed By: #### 4 5506, 91412, 58458, 79981, 37036, 75197 #### [facility] [address] [place] [address], [place] AST [Catalytic activity/Vol] 15 U/L Normal 13-39 [facility] Comment on above: Performed By: #### 4 5506, 02919, 78655, 05996, 76379, 13688 #### [facility] [address] [place] [address], [facility] Bilirubin [Mass/Vol] 0.3 mg/dL Normal 0.3-1.0 [facility] Comment on above: Performed By: #### 4 5506, 09544, 38805, 80884, 16528, 36648 #### [facility] [address] [place] [address], [place] Calcium [Mass/Vol] 10.6 mg/dL High 8.6-10.3 [facility] Comment on above: Performed By: #### 4 5506, 01714, 39058, 42409, 54643, 71195 #### [facility] [address] [place] [address], [place] Chloride [Moles/Vol] 102 mmol/L Normal 98-107 [facility] Comment on above: Performed By: #### 4 5506, 62028, 97769, 53369, 36949, 73211 #### [facility] [address] [place] [address], [place] CO2 [Moles/Vol] 24 mmol/L Normal 21-31 [facility] Comment on above: Performed By: #### 4 5506, 75135, 52404, 22543, 11262, 75398 #### [facility] [address] [place] [address], [place] Creatinine [Mass/Vol] 1.04 mg/dL Normal 0.70-1.30 [facility] Comment on above: Performed By: #### 4 5506, 54756, 47125, 55873, 65239, 53528 #### [facility] [address] [place] [address], [facility] GFR/1.73 sq M.predicted among blacks MDRD (S/P/Bld) [Vol rate/Area] mL/min/{1.73_m2} Normal >60 [facility] Comment on above: Performed By: #### 4 5506, 88504, 76944, 49674, 99982, 29272 #### [facility] [address] [place] [address], [place] GFR/1.73 sq M.predicted among non-blacks MDRD (S/P/Bld) [Vol rate/Area] mL/min/{1.73_m2} Normal >60 [facility] Comment on above: Performed By: #### 4 5506, 57026, 68123, 42065, 36783, 12419 #### [facility] [address] [place] [address], [place] Glucose [Mass/Vol] 167 mg/dL High 70-100 [facility] Comment on above: Performed By: #### 4 5506, 05807, 24146, 62251, 33552, 97154 #### [facility] [address] [place] [address], [facility] Potassium [Moles/Vol] 5.3 mmol/L High 3.5-5.1 [facility] Comment on above: Performed By: #### 4 5506, 75825, 77595, 82374, 55276, 15762 #### [facility] [address] [place] [address], [facility] Protein [Mass/Vol] 6.5 g/dL Normal 6.0-8.3 [facility] Comment on above: Performed By: #### 4 5506, 49816, 57503, 35944, 06139, 03444 #### [facility] [address] [place] [address], [facility] Sodium [Moles/Vol] 134 mmol/L Low 136-145 [facility] Comment on above: Performed By: #### 4 5506, 85184, 49451, 88320, 07815, 97553 #### [facility] [address] [place] [address], [facility] Urea nitrogen [Mass/Vol] 11 mg/dL Normal 7-25 [facility] Comment on above: Performed By: #### 4 5506, 58088, 07135, 30785, 14035, 77700 #### [facility] [address] [place] [address], [facility] DIRECT BILIon 06-22-2021 Bilirubin.direct [Mass/Vol] 0.1 mg/dL Normal 0.0-0.2 [facility] Comment on above: Performed By: #### 4 5506, 58674, 22856, 86594, 31785, 51584 #### [facility] [address] [place] [address], [facility] LIPID PROFILEon 06-22-2021 Cholesterol [Mass/Vol] 77 mg/dL Low 120-200 [facility] Comment on above: Result Comment: CHOL ESTEROL REFERENCE RANGE: 20 YEARS AND OLDER CARDIOVASCULAR RISK Less than 200 mg/dl Low Risk 200 to 239 mg/dl Borderline Risk 240 mg/dl and greater High Risk Performed By: #### 4 5506, 35798, 12490, 91916, 32118, 68792 #### [facility] [address] [place] [address], [place] Cholesterol in HDL [Mass/Vol] 40 mg/dL Normal 23-92 [facility] Comment on above: Result Comment: Slig ht variation in normal range could be due to gender and/or age. HDL CHOLESTEROL REFERENCE RANGE: 20 years and older Cardiovascular Risk > or =60 mg/dL Desirable 40 TO 59 mg/dL Low Risk <40 mg/dL High Risk Performed By: #### 4 5506, 94746, 20375, 25139, 48049, 99654 #### [facility] [address] [place] [address], [place] Cholesterol in LDL [Mass/Vol] 24 mg/dL Normal 0-130 [facility] Comment on above: Result Comment: LDL IS A CALCULATION LDL IS ONLY VALID IF THE TRIG IS LESS THAN 400. Performed By: #### 4 5506, 12584, 85056, 49214, 47853, 66778 #### [facility] [address] [place] [address], [place] Cholesterol.total/Cho lesterol in HDL [Mass ratio] 1.9 {ratio} Normal .0-4.5 [facility] Comment on above: Performed By: #### 4 5506, 69590, 32393, 31864, 75521, 57513 #### [facility] [address] [place] [address], [place] NON-HDL CHOLESTEROL 37 mg/dL Normal [facility] Comment on above: Performed By: #### 4 5506, 88497, 45113, 22153, 76570, 13274 #### [facility] [address] [place] [address], [place] Triglyceride [Mass/Vol] 63 mg/dL Normal 40-149 [facility] Comment on above: Result Comment: TRIG LYCERIDE REFERENCE RANGE: 20 YEARS AND OLDER CARDIOVASCULAR RISK LESS THAN 150 mg/dl LOW RISK 150 TO 199 mg/dl BORDERLINE RISK 200 mg/dl AND GREATER HIGH RISK Performed By: #### 4 5506, 89169, 12061, 14076, 37165, 99697 #### [facility] [address] [place] [address], [facility] VLDL CHOL 13 mg/dL Normal 0-40 [facility] Comment on above: Performed By: #### 4 5506, 06477, 36867, 21917, 14217, 76345 #### [facility] [address] [place] [address], [facility] MAGNESIUM BLOODon 06-22-2021 Magnesium [Mass/Vol] 1.4 mg/dL Low 1.9-2.7 [facility] Comment on above: Performed By: #### 4 5506, 73905, 41241, 34449, 30393, 45742 #### [facility] [address] [place] [address], [facility] PHOSPHORUS BLOODon Phosphate [Mass/Vol] 2.5 mg/dL Normal 2.5-5.0 [facility] Comment on above: Performed By: #### 4 5506, 79155, 64677, 36103, 11165, 72389 #### [facility] [address] [place] [address], [facility] PTH INTACTon 06-22-2021 PTH INTACT 155 pg/mL High 12-88 [facility] Comment on above: Performed By: #### 4 5506, 41655, 39540, 92515, 37825, 55128 #### [facility] [address] [place] [address], [facility] TACROLIMUSon 06-22-2021 Tacrolimus (Bld) [Mass/Vol] 21.0 ng/mL High 5.0-20.0 [facility] Comment on above: Result Comment: The [employer] Tacrolimus assay is a delayed one-step immunoassay for the quantitative determination of tacrolimus in human whole blood using the chemiluminescent microparticle immunoassay (CMIA) technology with flexible assay protocols, referred to as Chemiflex. Performed By: #### 4 5506, 80334, 60559, 69904, 55166, 63216 #### [facility] [address] URIC ACID BLOODon 06-22-2021 Urate [Mass/Vol] 7.9 mg/dL High 4.4-7.6 [facility] Comment on above: Performed By: #### 4 5506, 81330, 34033, 58200, 58839, 99351 #### [facility] [address] CBC W/DIFFon 04-19-2021 ABS IMM GRANS 0.1 10*3/uL Normal 0.0-0.2 [facility] Comment on above: Performed By: #### 4 5506, 83038, 14028, 53618, 46711, 85479 #### [facility] [address] ABS NEUTROPHILS 5.2 10*3/uL Normal 1.6-7.6 [facility] Comment on above: Performed By: #### 4 5506, 55515, 21571, 76795, 59789, 59330 #### [facility] [address] Basophils (Bld) [#/Vol] 0.0 10*3/uL Normal 0.0-0.2 [facility] Comment on above: Performed By: #### 4 5506, 10275, 41046, 25266, 61580, 66179 #### [facility] [address] Basophils/100 WBC (Bld) 0.4 % Normal 0.0-1.0 [facility] Comment on above: Performed By: #### 4 5506, 84302, 07638, 92223, 17369, 78748 #### [facility] [address] [place] [address], [facility] Eosinophils (Bld) [#/Vol] 0.2 10*3/uL Normal 0.0-0.5 [facility] Comment on above: Performed By: #### 4 5506, 90443, 81901, 21902, 11364, 40266 #### [facility] [address] [place] [address], [facility] Eosinophils/100 WBC (Bld) 2.9 % Normal 0.0-6.0 [facility] Comment on above: Performed By: #### 4 5506, 79723, 55205, 78599, 27887, 41782 #### [facility] [address] Erythrocyte distribution width (RBC) [Ratio] 13.3 % Normal 11.5-15.0 [facility] Comment on above: Performed By: #### 4 5506, 83476, 98132, 97777, 79904, 08233 #### [facility] [address] [facility] [place] [address] Hematocrit (Bld) [Volume fraction] 37.1 % Low 39.0-50.0 [facility] Comment on above: Performed By: #### 4 5506, 14915, 10651, 07975, 86776, 06324 #### [facility] [address] [place] [address], [facility] Hemoglobin (Bld) [Mass/Vol] 11.7 g/dL Low 13.0-17.0 [facility] Comment on above: Performed By: #### 4 5506, 00019, 43602, 35317, 74959, 84983 #### [facility] [address] [place] [address], [facility] IMMATURE GRANS 0.9 % Normal 0.0-1.0 [facility] Comment on above: Performed By: #### 4 5506, 06870, 52808, 49197, 13009, 31502 #### [facility] [address] [place] [address], [facility] Lymphocytes (Bld) [#/Vol] 0.9 10*3/uL Low 1.2-4.0 [facility] Comment on above: Performed By: #### 4 5506, 56867, 40223, 13897, 72445, 25660 #### [facility] [address] [facility] [place] [address], [facility] Lymphocytes/100 WBC (Bld) 12.5 % Low 20.0-45.0 [facility] Comment on above: Performed By: #### 4 5506, 23923, 26797, 78314, 06928, 02495 #### [facility] [address] [place] [place]. [address] MCH (RBC) [Entitic mass] 29.0 pg Normal 27.0-33.0 [facility] Comment on above: Performed By: #### 4 5506, 04349, 22367, 69449, 79086, 52453 #### [facility] [address] [place] [address], [facility] MCHC (RBC) [Mass/Vol] 31.5 g/dL Low 32.0-35.0 [facility] Comment on above: Performed By: #### 4 5506, 37132, 46437, 18729, 42822, 39623 #### [facility] [address] [facility] [place] [address], [facility] MCV (RBC) [Entitic vol] 92.1 fL Normal 82.0-98.0 [facility] Comment on above: Performed By: #### 4 5506, 51107, 17531, 82616, 69878, 26333 #### [facility] [address] [place] [address], [facility] Monocytes (Bld) [#/Vol] 0.6 10*3/uL Normal 0.1-1.0 [facility] Comment on above: Performed By: #### 4 5506, 60071, 89324, 33022, 08296, 57867 #### [facility] [address] [place] [address], [facility] MONOS 8.6 % Normal 5.0-12.0 [facility] Comment on above: Performed By: #### 4 5506, 57930, 68463, 54911, 64628, 13582 #### [facility] [address] [place] [address], [place] Neutrophils/100 WBC (Bld) 74.7 % High 40.0-72.0 [facility] Comment on above: Performed By: #### 4 5506, 93128, 68001, 42456, 06474, 82406 #### [facility] [address] [place] [address], [place] Nucleated RBC/100 WBC (Bld) [Ratio] 0 % Normal 0-0 [facility] Comment on above: Performed By: #### 4 5506, 26225, 61430, 89277, 46619, 74984 #### [facility] [address] [place] [address], [place] PLAT CNT 290 10*3/uL Normal 150-400 [facility] Comment on above: Performed By: #### 4 5506, 86115, 63167, 23637, 75109, 61315 #### [facility] [address] [place] [address], [place] RBC (Bld) [#/Vol] 4.03 10*6/uL Low 4.20-5.70 [facility] Comment on above: Performed By: #### 4 5506, 52771, 30307, 12221, 76317, 59906 #### [facility] [address] [place] [address], [place] WBC (Bld) [#/Vol] 6.96 10*3/uL Normal 4.00-10.60 [facility] Comment on above: Performed By: #### 4 5506, 14847, 14181, 88697, 26742, 48721 #### [facility] [address] [place] [address], [facility] COMP METABOLIC PANELon 04-19 Albumin [Mass/Vol] 4.3 g/dL Normal 3.5-5.7 [facility] Comment on above: Performed By: #### 4 5506, 03779, 51619, 11920, 68854, 68721 #### [facility] [address] [place] [address], [facility] ALKALINE PHOSPH 137 IU/L High 34-104 [facility] Comment on above: Performed By: #### 4 5506, 15430, 26838, 13630, 48111, 45173 #### [facility] [address] [place] [address], [place] ALT [Catalytic activity/Vol] 17 U/L Normal 7-52 [facility] Comment on above: Performed By: #### 4 5506, 01390, 93345, 38328, 53456, 96220 #### [facility] [address] [place] [address], [place] AST [Catalytic activity/Vol] 16 U/L Normal 13-39 [facility] Comment on above: Performed By: #### 4 5506, 99323, 81263, 87395, 87228, 26773 #### [facility] [address] [place] [address], [place] Bilirubin [Mass/Vol] 0.4 mg/dL Normal 0.3-1.0 [facility] Comment on above: Performed By: #### 4 5506, 80024, 42733, 94387, 63333, 54872 #### [facility] [address] [place] [address], [place] Calcium [Mass/Vol] 10.5 mg/dL High 8.6-10.3 [facility] Comment on above: Performed By: #### 4 5506, 22756, 23369, 21035, 15241, 37680 #### [facility] [address] [place] [address], [place] Chloride [Moles/Vol] 99 mmol/L Normal 98-107 [facility] Comment on above: Performed By: #### 4 5506, 84158, 66059, 75610, 94231, 97594 #### [facility] [address] [place] [address], [place] CO2 [Moles/Vol] 27 mmol/L Normal 21-31 [facility] Comment on above: Performed By: #### 4 5506, 53154, 00329, 53295, 00381, 53385 #### [facility] [address] [place] [address], [place] Creatinine [Mass/Vol] 1.04 mg/dL Normal 0.70-1.30 [facility] Comment on above: Performed By: #### 4 5506, 29289, 15017, 94555, 58075, 79727 #### [facility] [address] [place] [address], [place] GFR/1.73 sq M.predicted among blacks MDRD (S/P/Bld) [Vol rate/Area] mL/min/{1.73_m2} Normal >60 [facility] Comment on above: Performed By: #### 4 5506, 19318, 27427, 55022, 01386, 61812 #### [facility] [address] [place] [address], [place] GFR/1.73 sq M.predicted among non-blacks MDRD (S/P/Bld) [Vol rate/Area] mL/min/{1.73_m2} Normal >60 [facility] Comment on above: Performed By: #### 4 5506, 68440, 02701, 06147, 13473, 22399 #### [facility] [address] [place] [address], [place] Glucose [Mass/Vol] 139 mg/dL High 70-100 [facility] Comment on above: Performed By: #### 4 5506, 20812, 44251, 81837, 87542, 89817 #### [facility] [address] [place] [address], [place] Potassium [Moles/Vol] 5.1 mmol/L Normal 3.5-5.1 [facility] Comment on above: Performed By: #### 4 5506, 39250, 89596, 06242, 53740, 26110 #### [facility] [address] [place] [address], [place] Protein [Mass/Vol] 6.5 g/dL Normal 6.0-8.3 [facility] Comment on above: Performed By: #### 4 5506, 80785, 67784, 64328, 57384, 83579 #### [facility] [address] [place] [address], [place] Sodium [Moles/Vol] 133 mmol/L Low 136-145 [facility] Comment on above: Performed By: #### 4 5506, 33353, 61811, 70979, 96803, 34961 #### [facility] [address] [place] [address], [place] Urea nitrogen [Mass/Vol] 11 mg/dL Normal 7-25 [facility] Comment on above: Performed By: #### 4 5506, 36069, 36306, 96412, 53598, 24133 #### [facility] [address] [place] [address], [place] DIRECT BILIon 04-19-2021 Bilirubin.direct [Mass/Vol] 0.1 mg/dL Normal 0.0-0.2 [facility] Comment on above: Performed By: #### 4 5506, 56246, 73292, 62464, 93681, 40235 #### [facility] [address] [place] [address], [facility] LIPID PROFILEon 04-19-2021 Cholesterol [Mass/Vol] 82 mg/dL Low 120-200 [facility] Comment on above: Result Comment: CHOL ESTEROL REFERENCE RANGE: 20 YEARS AND OLDER CARDIOVASCULAR RISK Less than 200 mg/dl Low Risk 200 to 239 mg/dl Borderline Risk 240 mg/dl and greater High Risk Performed By: #### 4 5506, 63231, 01362, 85303, 73163, 57028 #### [facility] [address] [place] [address], [facility] Cholesterol in HDL [Mass/Vol] 38 mg/dL Normal 23-92 [facility] Comment on above: Result Comment: Slig ht variation in normal range could be due to gender and/or age. HDL CHOLESTEROL REFERENCE RANGE: 20 years and older Cardiovascular Risk > or =60 mg/dL Desirable 40 TO 59 mg/dL Low Risk <40 mg/dL High Risk Performed By: #### 4 5506, 80764, 41244, 18460, 72306, 61828 #### [facility] [address] [facility] [place] [address], [facility] Cholesterol in LDL [Mass/Vol] 25 mg/dL Normal 0-130 [facility] Comment on above: Result Comment: LDL IS A CALCULATION LDL IS ONLY VALID IF THE TRIG IS LESS THAN 400. Performed By: #### 4 5506, 89440, 81813, 53287, 06275, 91341 #### [facility] [address] [place] [address], [place] Cholesterol.total/Cho lesterol in HDL [Mass ratio] 2.2 {ratio} Normal .0-4.5 [facility] Comment on above: Performed By: #### 4 5506, 41427, 55134, 55938, 36379, 89544 #### [facility] [address] NON-HDL CHOLESTEROL 44 mg/dL Normal [facility] Comment on above: Performed By: #### 4 5506, 67052, 58773, 16967, 75774, 07775 #### [facility] [address] Triglyceride [Mass/Vol] 93 mg/dL Normal 40-149 [facility] Comment on above: Result Comment: TRIG LYCERIDE REFERENCE RANGE: 20 YEARS AND OLDER CARDIOVASCULAR RISK LESS THAN 150 mg/dl LOW RISK 150 TO 199 mg/dl BORDERLINE RISK 200 mg/dl AND GREATER HIGH RISK Performed By: #### 4 5506, 63606, 47830, 29001, 00043, 01070 #### [facility] [address] [place] [address], [facility] VLDL CHOL 19 mg/dL Normal 0-40 [facility] Comment on above: Performed By: #### 4 5506, 12591, 59896, 67518, 73583, 00873 #### [facility] [address] [place] [address], [facility] MAGNESIUM BLOODon 04-19-2021 Magnesium [Mass/Vol] 1.8 mg/dL Low 1.9-2.7 [facility] Comment on above: Performed By: #### 4 5506, 54451, 96676, 47617, 20113, 01604 #### [facility] [address] [place] [address], [facility] PHOSPHORUS BLOODon Phosphate [Mass/Vol] 3.0 mg/dL Normal 2.5-5.0 [facility] Comment on above: Performed By: #### 4 5506, 28735, 68423, 29443, 22819, 62137 #### [facility] [address] [place] [address], [facility] PROSPERAon 04-19-2021 PROSPERA KIT Results to be mailed directly to physician's office by reference lab. Normal [facility] Comment on above: Result Comment: Test performed by [id number] [place] [address] No result expected. For billing and tracking purposes only. Specimen collected for transplant patient and [facility] per instructions. No charge. Performed By: #### 4 5506, 30815, 16385, 25857, 59073, 67259 #### [facility] [address] [facility]. [address] RESULT Results to be mailed directly to physician's office by reference lab. Normal [facility] Comment on above: Performed By: #### 4 5506, 84651, 41217, 80585, 31892, 54681 #### [facility] [address] TACROLIMUSon 04-19-2021 Tacrolimus (Bld) [Mass/Vol] 7.7 ng/mL Normal 5.0-20.0 [facility] Comment on above: Result Comment: The [employer] Tacrolimus assay is a delayed one-step immunoassay for the quantitative determination of tacrolimus in human whole blood using the chemiluminescent microparticle immunoassay (CMIA) technology with flexible assay protocols, referred to as Chemiflex. Performed By: #### 4 5506, 08049, 01935, 44379, 41126, 46703 #### [facility] [address] [facility]. [address] URIC ACID BLOODon 04-19-2021 Urate [Mass/Vol] 7.9 mg/dL High 4.4-7.6 [facility] Comment on above: Performed By: #### 4 5506, 67874, 81104, 65647, 55731, 87390 #### [facility] [address] [facility] [place] [address], [facility] CBC W/DIFFon 04-11-2021 ABS IMM GRANS 0.0 10*3/uL Normal 0.0-0.2 [facility] Comment on above: Performed By: #### 4 5506, 09958, 22718, 03759, 07635, 44881 #### [facility] [address] [place] [address], [facility] ABS NEUTROPHILS 4.5 10*3/uL Normal 1.6-7.6 [facility] Comment on above: Performed By: #### 4 5506, 85733, 59883, 97519, 48591, 88709 #### [facility] [address] [place] [address], [place] Basophils (Bld) [#/Vol] 0.0 10*3/uL Normal 0.0-0.2 [facility] Comment on above: Performed By: #### 4 5506, 75400, 75492, 87951, 92031, 37722 #### [facility] [address] [place] [address], [facility] Basophils/100 WBC (Bld) 0.5 % Normal 0.0-1.0 [facility] Comment on above: Performed By: #### 4 5506, 18683, 10719, 56859, 76544, 48959 #### [facility] [address] [facility] [place] [address], [facility] Eosinophils (Bld) [#/Vol] 0.2 10*3/uL Normal 0.0-0.5 [facility] Comment on above: Performed By: #### 4 5506, 66122, 74360, 22410, 15163, 10810 #### [facility] [address] [place] [address], [place] Eosinophils/100 WBC (Bld) 3.1 % Normal 0.0-6.0 [facility] Comment on above: Performed By: #### 4 5506, 28296, 53145, 71595, 27908, 98947 #### [facility] [address] [place] [address], [place] Erythrocyte distribution width (RBC) [Ratio] 13.4 % Normal 11.5-15.0 [facility] Comment on above: Performed By: #### 4 5506, 05915, 43791, 13978, 73166, 17971 #### [facility] [address] [facility] [place]. [address] Hematocrit (Bld) [Volume fraction] 35.5 % Low 39.0-50.0 [facility] Comment on above: Performed By: #### 4 5506, 99841, 90155, 24555, 82735, 98779 #### [facility] [address] Hemoglobin (Bld) [Mass/Vol] 11.7 g/dL Low 13.0-17.0 [facility] Comment on above: Performed By: #### 4 5506, 72442, 34577, 30880, 95697, 93557 #### [facility] [address] [facility]. [address] IMMATURE GRANS 0.6 % Normal 0.0-1.0 [facility] Comment on above: Performed By: #### 4 5506, 31799, 55197, 06443, 09419, 22683 #### [facility] [address] [facility]. [address] Lymphocytes (Bld) [#/Vol] 0.8 10*3/uL Low 1.2-4.0 [facility] Comment on above: Performed By: #### 4 5506, 95818, 25373, 60016, 61576, 29774 #### [facility] [address] [place]. [address] Lymphocytes/100 WBC (Bld) 12.9 % Low 20.0-45.0 [facility] Comment on above: Performed By: #### 4 5506, 54647, 99281, 75010, 04160, 10046 #### [facility] [address] [place] [address], [facility] MCH (RBC) [Entitic mass] 29.2 pg Normal 27.0-33.0 [facility] Comment on above: Performed By: #### 4 5506, 29246, 02580, 05310, 54468, 69444 #### [facility] [address] [place]. [address] MCHC (RBC) [Mass/Vol] 33.0 g/dL Normal 32.0-35.0 [facility] Comment on above: Performed By: #### 4 5506, 06771, 15853, 12583, 03969, 04148 #### [facility] [address] [place]. [address] MCV (RBC) [Entitic vol] 88.5 fL Normal 82.0-98.0 [facility] Comment on above: Performed By: #### 4 5506, 34284, 06756, 82973, 47821, 25955 #### [facility] [address] [place]. [address] Monocytes (Bld) [#/Vol] 0.6 10*3/uL Normal 0.1-1.0 [facility] Comment on above: Performed By: #### 4 5506, 31390, 25966, 11462, 05144, 83317 #### [facility] [address] [place]. [address] MONOS 10.3 % Normal 5.0-12.0 [facility] Comment on above: Performed By: #### 4 5506, 73847, 69477, 26461, 03910, 43676 #### [facility] [address] [place] [address], [facility] Neutrophils/100 WBC (Bld) 72.6 % High 40.0-72.0 [facility] Comment on above: Performed By: #### 4 5506, 02421, 90826, 04275, 11684, 73985 #### [facility] [address] [place] [address], [facility] Nucleated RBC/100 WBC (Bld) [Ratio] 0 % Normal 0-0 [facility] Comment on above: Performed By: #### 4 5506, 68392, 27585, 73062, 92444, 50294 #### [facility] [address] [place] [address], [facility] PLAT CNT 272 10*3/uL Normal 150-400 [facility] Comment on above: Performed By: #### 4 5506, 84664, 06219, 84322, 94857, 59669 #### [facility] [address] [facility]. [address] RBC (Bld) [#/Vol] 4.01 10*6/uL Low 4.20-5.70 [facility] Comment on above: Performed By: #### 4 5506, 19290, 87844, 63838, 68901, 26953 #### [facility] 3000 [facility]. [address] WBC (Bld) [#/Vol] 6.22 10*3/uL Normal 4.00-10.60 [facility] Comment on above: Performed By: #### 4 5506, 95389, 73128, 32699, 33648, 85146 #### [facility] [address] [facility]. [address] COMP METABOLIC PANELon 04-11 Albumin [Mass/Vol] 4.3 g/dL Normal 3.5-5.7 [facility] Comment on above: Performed By: #### 4 5506, 54042, 73498, 54341, 82970, 21840 #### [facility] 3000 [facility]. [address] ALKALINE PHOSPH 115 IU/L High 34-104 [facility] Comment on above: Performed By: #### 4 5506, 66923, 20156, 69574, 91065, 95317 #### [facility] [address] [place] [address], [place] ALT [Catalytic activity/Vol] 16 U/L Normal 7-52 [facility] Comment on above: Performed By: #### 4 5506, 22917, 02451, 80563, 84719, 20640 #### [facility] [address] [place] [address], [place] AST [Catalytic activity/Vol] 15 U/L Normal 13-39 [facility] Comment on above: Performed By: #### 4 5506, 39370, 33677, 89418, 84223, 29448 #### [facility] [address] [place] [address], [place] Bilirubin [Mass/Vol] 0.6 mg/dL Normal 0.3-1.0 [facility] Comment on above: Performed By: #### 4 5506, 72133, 63928, 18563, 24135, 32577 #### [facility] [address] [place] [address], [place] Calcium [Mass/Vol] 10.3 mg/dL Normal 8.6-10.3 [facility] Comment on above: Performed By: #### 4 5506, 81309, 48292, 45246, 27758, 13262 #### [facility] [address] [place] [address], [place] Chloride [Moles/Vol] 97 mmol/L Low 98-107 [facility] Comment on above: Performed By: #### 4 5506, 05306, 49433, 72445, 85819, 06530 #### [facility] [address] [place] [address], [place] CO2 [Moles/Vol] 26 mmol/L Normal 21-31 [facility] Comment on above: Performed By: #### 4 5506, 63281, 67201, 45099, 25483, 71639 #### [facility] [address] [place] [address], [place] Creatinine [Mass/Vol] 0.93 mg/dL Normal 0.70-1.30 [facility] Comment on above: Performed By: #### 4 5506, 25271, 99903, 62971, 51866, 66109 #### [facility] [address] [place] [address], [place] GFR/1.73 sq M.predicted among blacks MDRD (S/P/Bld) [Vol rate/Area] mL/min/{1.73_m2} Normal >60 [facility] Comment on above: Performed By: #### 4 5506, 56336, 06408, 43937, 38921, 30096 #### [facility] [address] [place] [address], [place] GFR/1.73 sq M.predicted among non-blacks MDRD (S/P/Bld) [Vol rate/Area] mL/min/{1.73_m2} Normal >60 [facility] Comment on above: Performed By: #### 4 5506, 38995, 90623, 14088, 16786, 41878 #### [facility] [address] [place] [address], [place] Glucose [Mass/Vol] 136 mg/dL High 70-100 [facility] Comment on above: Performed By: #### 4 5506, 07306, 03687, 14620, 65901, 80800 #### [facility] [address] [place] [address], [place] Potassium [Moles/Vol] 5.2 mmol/L High 3.5-5.1 [facility] Comment on above: Performed By: #### 4 5506, 08939, 66805, 60876, 64125, 03400 #### [facility] [address] [place] [address], [place] Protein [Mass/Vol] 6.7 g/dL Normal 6.0-8.3 [facility] Comment on above: Performed By: #### 4 5506, 93184, 65670, 19123, 75687, 84695 #### [facility] [address] [place] [address], [facility] Sodium [Moles/Vol] 129 mmol/L Low 136-145 [facility] Comment on above: Performed By: #### 4 5506, 92551, 02326, 53326, 44457, 75781 #### [facility] [address] [place] [address], [facility] Urea nitrogen [Mass/Vol] 10 mg/dL Normal 7-25 [facility] Comment on above: Performed By: #### 4 5506, 03933, 78707, 59068, 00849, 99912 #### [facility] [address] [place] [address], [facility] DIRECT BILIon 04-11-2021 Bilirubin.direct [Mass/Vol] 0.2 mg/dL Normal 0.0-0.2 [facility] Comment on above: Performed By: #### 4 5506, 72654, 22307, 34882, 97943, 82599 #### [facility] [address] [place] [address], [facility] LIPID PROFILEon 04-11-2021 Cholesterol [Mass/Vol] 84 mg/dL Low 120-200 [facility] Comment on above: Result Comment: CHOL ESTEROL REFERENCE RANGE: 20 YEARS AND OLDER CARDIOVASCULAR RISK Less than 200 mg/dl Low Risk 200 to 239 mg/dl Borderline Risk 240 mg/dl and greater High Risk Performed By: #### 4 5506, 02671, 97189, 76500, 60052, 45998 #### [facility] [address] [place] [address], [facility] Cholesterol in HDL [Mass/Vol] 41 mg/dL Normal 23-92 [facility] Comment on above: Result Comment: Slig ht variation in normal range could be due to gender and/or age. HDL CHOLESTEROL REFERENCE RANGE: 20 years and older Cardiovascular Risk > or =60 mg/dL Desirable 40 TO 59 mg/dL Low Risk <40 mg/dL High Risk Performed By: #### 4 5506, 31513, 23386, 28504, 15548, 65971 #### [facility] [address] [place] [address], [facility] Cholesterol in LDL [Mass/Vol] 34 mg/dL Normal 0-130 [facility] Comment on above: Result Comment: LDL IS A CALCULATION LDL IS ONLY VALID IF THE TRIG IS LESS THAN 400. Performed By: #### 4 5506, 53609, 02251, 42869, 71781, 63822 #### [facility] [address] [place] [address], [facility] Cholesterol.total/Cho lesterol in HDL [Mass ratio] 2.0 {ratio} Normal .0-4.5 [facility] Comment on above: Performed By: #### 4 5506, 07569, 05917, 88228, 97163, 28565 #### [facility] [address] [place] [address], [facility] NON-HDL CHOLESTEROL 43 mg/dL Normal [facility] Comment on above: Performed By: #### 4 5506, 83426, 41161, 57942, 24230, 39597 #### [facility] [address] [place] [address], [facility] Triglyceride [Mass/Vol] 47 mg/dL Normal 40-149 [facility] Comment on above: Result Comment: TRIG LYCERIDE REFERENCE RANGE: 20 YEARS AND OLDER CARDIOVASCULAR RISK LESS THAN 150 mg/dl LOW RISK 150 TO 199 mg/dl BORDERLINE RISK 200 mg/dl AND GREATER HIGH RISK Performed By: #### 4 5506, 04942, 52284, 48272, 71936, 25333 #### [facility] [address] [place] [address], [place] VLDL CHOL 9 mg/dL Normal 0-40 [facility] Comment on above: Performed By: #### 4 5506, 34478, 13364, 52435, 06002, 24705 #### [facility] [address] [place] [address], [facility] MAGNESIUM BLOODon 04-11-2021 Magnesium [Mass/Vol] 1.3 mg/dL Low 1.9-2.7 [facility] Comment on above: Performed By: #### 4 5506, 58654, 81046, 16451, 19057, 39786 #### [facility] [address] [place] [address], [facility] PHOSPHORUS BLOODon Phosphate [Mass/Vol] 2.6 mg/dL Normal 2.5-5.0 [facility] Comment on above: Performed By: #### 4 5506, 02159, 52230, 51222, 26193, 41996 #### [facility] [address] TACROLIMUSon 04-11-2021 Tacrolimus (Bld) [Mass/Vol] 8.3 ng/mL Normal 5.0-20.0 [facility] Comment on above: Result Comment: The [employer] Tacrolimus assay is a delayed one-step immunoassay for the quantitative determination of tacrolimus in human whole blood using the chemiluminescent microparticle immunoassay (CMIA) technology with flexible assay protocols, referred to as Chemiflex. Performed By: #### 4 5506, 18522, 37767, 80296, 71142, 54402 #### [facility] [address] [place] [place] [address], [facility] URIC ACID BLOODon 04-11-2021 Urate [Mass/Vol] 8.4 mg/dL High 4.4-7.6 [facility] Comment on above: Performed By: #### 4 5506, 75657, 26206, 08683, 38388, 71833 #### [facility] [address] BK VIRUS QUANTITATION FOR PL ASMAon 02-16-2021 BKV Plasma Quantitation by PCR Not detected Normal [facility] Comment on above: Result Comment: Meth od: BK virus was measured by quantitative polymerase chain reaction using a fluorescent hydrolysis probe targeting the polyomavirus BK LAUNDRY AIDE-1 gene. The lower limit of quantitation of the assay is 500 copies of BK genome per milliliter of plasma or urine, and any detectable BK DNA below that level is reported as: Detected, <500 copies/ml. Serial BK virus measurement can be used to monitor disease activity. (Reference: Katina hernandez. J CLIN MICRO 2004; 42:6764-0062). This test was developed and its performance characteristics determined by the [facility]. It has not been approved by the [place] Food and Drug Administration. However, such approval is not required for clinical implementation, and test results have been shown to be clinically useful. This laboratory is CAP accredited and CLIA certified to perform high complexity testing. Performed By: #### 4 5506, 41654, 94521, 94675, 72497, 37453 #### [facility] [address] BKV Plasma Quantitation Log by PCR Not detected Normal [facility] Comment on above: Performed By: #### 4 5506, 26920, 41716, 76249, 07263, 11152 #### [facility] [address] CBC W/DIFFon 02-16-2021 ABS IMM GRANS 0.1 10*3/uL Normal 0.0-0.2 [facility] Comment on above: Performed By: #### 4 5506, 08980, 63280, 29108, 44114, 30909 #### [facility] [address] ABS NEUTROPHILS 5.8 10*3/uL Normal 1.6-7.6 [facility] Comment on above: Performed By: #### 4 5506, 90903, 59287, 32387, 54680, 03889 #### [facility] [address] Basophils (Bld) [#/Vol] 0.0 10*3/uL Normal 0.0-0.2 [facility] Comment on above: Performed By: #### 4 5506, 44545, 24353, 46851, 55622, 16566 #### [facility] [address] [place] [address], [facility] Basophils/100 WBC (Bld) 0.4 % Normal 0.0-1.0 [facility] Comment on above: Performed By: #### 4 5506, 32819, 88230, 32076, 07125, 84690 #### [facility] [address] [place] [address], [facility] Eosinophils (Bld) [#/Vol] 0.3 10*3/uL Normal 0.0-0.5 [facility] Comment on above: Performed By: #### 4 5506, 97859, 50320, 41092, 09960, 09668 #### [facility] [address] [place] [address], [facility] Eosinophils/100 WBC (Bld) 3.5 % Normal 0.0-6.0 [facility] Comment on above: Performed By: #### 4 5506, 26234, 61913, 94132, 98162, 98461 #### [facility] [address] [place] [address], [place] Erythrocyte distribution width (RBC) [Ratio] 13.6 % Normal 11.5-15.0 [facility] Comment on above: Performed By: #### 4 5506, 97950, 99884, 85274, 71101, 93475 #### [facility] [address] [place] [address], [place] Hematocrit (Bld) [Volume fraction] 34.1 % Low 39.0-50.0 [facility] Comment on above: Performed By: #### 4 5506, 30462, 62746, 89827, 89130, 67738 #### [facility] [address] [place] [address], [place] Hemoglobin (Bld) [Mass/Vol] 11.6 g/dL Low 13.0-17.0 [facility] Comment on above: Performed By: #### 4 5506, 32685, 34366, 87056, 81673, 61676 #### [facility] [address] [place] [address], [facility] IMMATURE GRANS 0.8 % Normal 0.0-1.0 [facility] Comment on above: Performed By: #### 4 5506, 36965, 32776, 97450, 17030, 64814 #### [facility] [address] [place] [address], [facility] Lymphocytes (Bld) [#/Vol] 0.7 10*3/uL Low 1.2-4.0 [facility] Comment on above: Performed By: #### 4 5506, 45208, 93788, 34148, 06149, 61963 #### [facility] [address] [place] [address], [facility] Lymphocytes/100 WBC (Bld) 9.2 % Low 20.0-45.0 [facility] Comment on above: Performed By: #### 4 5506, 42598, 22887, 36715, 32765, 93845 #### [facility] [address] [place] [address], [facility] MCH (RBC) [Entitic mass] 29.5 pg Normal 27.0-33.0 [facility] Comment on above: Performed By: #### 4 5506, 75221, 04837, 89023, 21806, 36584 #### [facility] [address] [place] [address], [facility] MCHC (RBC) [Mass/Vol] 34.0 g/dL Normal 32.0-35.0 [facility] Comment on above: Performed By: #### 4 5506, 03550, 74107, 80286, 96314, 46735 #### [facility] [address] [facility]. [address] MCV (RBC) [Entitic vol] 86.8 fL Normal 82.0-98.0 [facility] Comment on above: Performed By: #### 4 5506, 26212, 77906, 35356, 09824, 70851 #### [facility] [address] [facility] [place] [address], [facility] Monocytes (Bld) [#/Vol] 0.8 10*3/uL Normal 0.1-1.0 [facility] Comment on above: Performed By: #### 4 5506, 80320, 61915, 10398, 95414, 00145 #### [facility] [address] MONOS 10.3 % Normal 5.0-12.0 [facility] Comment on above: Performed By: #### 4 5506, 83580, 10214, 57095, 86380, 39305 #### [facility] [address] Neutrophils/100 WBC (Bld) 75.8 % High 40.0-72.0 [facility] Comment on above: Performed By: #### 4 5506, 49357, 33668, 93420, 97128, 96660 #### [facility] [address] [facility]. [address] Nucleated RBC/100 WBC (Bld) [Ratio] 0 % Normal 0-0 [facility] Comment on above: Performed By: #### 4 5506, 92722, 47531, 03097, 87825, 68579 #### [facility] [address] [facility] [place] [address], [facility] PLAT CNT 256 10*3/uL Normal 150-400 [facility] Comment on above: Performed By: #### 4 5506, 70284, 60809, 19475, 43796, 16427 #### [facility] [address] [facility] [place] [place] [address], [facility] RBC (Bld) [#/Vol] 3.93 10*6/uL Low 4.20-5.70 [facility] Comment on above: Performed By: #### 4 5506, 04035, 96321, 06165, 12065, 14281 #### [facility] [address] [place] [address], [facility] WBC (Bld) [#/Vol] 7.65 10*3/uL Normal 4.00-10.60 [facility] Comment on above: Performed By: #### 4 5506, 77016, 06362, 89506, 32803, 36197 #### [facility] [address] [place] [address], [facility] COMP METABOLIC PANELon 02-16 Albumin [Mass/Vol] 4.6 g/dL Normal 3.5-5.7 [facility] Comment on above: Performed By: #### 0 0121, 37714, 39280, 16599, 70608, 13472, 70827, 32659 #### [facility] [address] [facility] [place] [address], [facility] ALKALINE PHOSPH 136 IU/L High 34-104 [facility] Comment on above: Performed By: #### 0 0121, 12972, 16699, 92140, 91937, 04545, 71300, 12453 #### [facility] [address]. [address] ALT [Catalytic activity/Vol] 22 U/L Normal 7-52 [facility] Comment on above: Performed By: #### 0 0121, 21172, 17697, 93823, 01920, 13266, 26466, 74499 #### [facility] [address] [place] [address], [facility] AST [Catalytic activity/Vol] 18 U/L Normal 13-39 [facility] Comment on above: Performed By: #### 0 0121, 24083, 56657, 21756, 32065, 55806, 54132, 76189 #### [facility] [address] [place] [address], [place] Bilirubin [Mass/Vol] 0.5 mg/dL Normal 0.3-1.0 [facility] Comment on above: Performed By: #### 0 0121, 39763, 74509, 34806, 21362, 00728, 20376, 50188 #### [facility] [address] [place] [address], [place] Calcium [Mass/Vol] 10.5 mg/dL High 8.6-10.3 [facility] Comment on above: Performed By: #### 0 0121, 10875, 66068, 60408, 50956, 16982, 26652, 82781 #### [facility] [address] [place] [address], [place] Chloride [Moles/Vol] 94 mmol/L Low 98-107 [facility] Comment on above: Performed By: #### 0 0121, 09525, 59290, 32047, 54591, 14562, 81558, 52603 #### [facility] [address] [place] [address], [place] CO2 [Moles/Vol] 28 mmol/L Normal 21-31 [facility] Comment on above: Performed By: #### 0 0121, 18177, 35636, 02464, 07943, 09186, 82921, 89597 #### [facility] [address] [place] [address], [place] Creatinine [Mass/Vol] 0.93 mg/dL Normal 0.70-1.30 [facility] Comment on above: Performed By: #### 0 0121, 77473, 86539, 32294, 89371, 70225, 08107, 23878 #### [facility] [address] [place] [address], [place] GFR/1.73 sq M.predicted among blacks MDRD (S/P/Bld) [Vol rate/Area] mL/min/{1.73_m2} Normal >60 [facility] Comment on above: Performed By: #### 0 0121, 35085, 63520, 07946, 88306, 27286, 06067, 61054 #### [facility] [address] [place] [address], [place] GFR/1.73 sq M.predicted among non-blacks MDRD (S/P/Bld) [Vol rate/Area] mL/min/{1.73_m2} Normal >60 [facility] Comment on above: Performed By: #### 0 0121, 38424, 98108, 51273, 04738, 42633, 93680, 07373 #### [facility] [address] [place] [address], [place] Glucose [Mass/Vol] 147 mg/dL High 70-100 [facility] Comment on above: Performed By: #### 0 0121, 44336, 90056, 59228, 09086, 01679, 42484, 35210 #### [facility] [address] [place] [address], [place] Potassium [Moles/Vol] 4.6 mmol/L Normal 3.5-5.1 [facility] Comment on above: Performed By: #### 0 0121, 76401, 18490, 85554, 59913, 56446, 38574, 95178 #### [facility] [address] [place] [address], [place] Protein [Mass/Vol] 7.2 g/dL Normal 6.0-8.3 [facility] Comment on above: Performed By: #### 0 0121, 87673, 88206, 70472, 92352, 08682, 70385, 74103 #### [facility] [address] [place] [address], [place] Sodium [Moles/Vol] 129 mmol/L Low 136-145 [facility] Comment on above: Performed By: #### 0 0121, 66495, 24043, 02518, 87695, 89059, 06194, 64399 #### [facility] [address] [place] [address], [facility] Urea nitrogen [Mass/Vol] 15 mg/dL Normal 7-25 [facility] Comment on above: Performed By: #### 0 0121, 42196, 86211, 04174, 49659, 38203, 89453, 06022 #### [facility] [address] [place] [address], [facility] DIRECT BILIon 02-16-2021 Bilirubin.direct [Mass/Vol] 0.2 mg/dL Normal 0.0-0.2 [facility] Comment on above: Performed By: #### 4 5506, 85547, 63499, 90460, 27328, 98447 #### [facility] [address] [place] [address], [facility] HEMOGLOBIN A1Con 02-16-2021 Glucose [Moles/Vol] 154 mmol/L Normal [facility] Comment on above: Performed By: #### 4 5506, 24164, 18045, 08605, 05715, 04239 #### [facility] [address] [place] [address], [facility] HbA1c (Bld) [Mass fraction] 7.0 % High 4.0-6.0 [facility] Comment on above: Performed By: #### 4 5506, 35012, 84707, 40467, 54912, 06126 #### [facility] [address] [place] [address], [facility] LIPID PROFILEon 02-16-2021 Cholesterol [Mass/Vol] 78 mg/dL Low 120-200 [facility] Comment on above: Result Comment: CHOL ESTEROL REFERENCE RANGE: 20 YEARS AND OLDER CARDIOVASCULAR RISK Less than 200 mg/dl Low Risk 200 to 239 mg/dl Borderline Risk 240 mg/dl and greater High Risk Performed By: #### 0 0121, 92328, 24307, 04658, 25341, 22774, 39098, 63323 #### [facility] [address] [place] [address], [place] Cholesterol in HDL [Mass/Vol] 41 mg/dL Normal 23-92 [facility] Comment on above: Result Comment: Slig ht variation in normal range could be due to gender and/or age. HDL CHOLESTEROL REFERENCE RANGE: 20 years and older Cardiovascular Risk > or =60 mg/dL Desirable 40 TO 59 mg/dL Low Risk <40 mg/dL High Risk Performed By: #### 0 0121, 98146, 45905, 54503, 91518, 02188, 01081, 45277 #### [facility] [address] [place] [address], [place] Cholesterol in LDL [Mass/Vol] 28 mg/dL Normal 0-130 [facility] Comment on above: Result Comment: LDL IS A CALCULATION LDL IS ONLY VALID IF THE TRIG IS LESS THAN 400. Performed By: #### 0 0121, 74512, 47784, 97518, 83182, 17163, 17561, 64310 #### [facility] [address] [place] [address], [place] Cholesterol.total/Cho lesterol in HDL [Mass ratio] 1.9 {ratio} Normal .0-4.5 [facility] Comment on above: Performed By: #### 0 0121, 73519, 78356, 18509, 42575, 34768, 10984, 20751 #### [facility] [address] [place] [address], [place] NON-HDL CHOLESTEROL 37 mg/dL Normal [facility] Comment on above: Performed By: #### 0 0121, 43510, 96626, 51070, 18757, 34684, 01284, 48657 #### [facility] [address] [place] [address], [place] Triglyceride [Mass/Vol] 44 mg/dL Normal 40-149 [facility] Comment on above: Result Comment: TRIG LYCERIDE REFERENCE RANGE: 20 YEARS AND OLDER CARDIOVASCULAR RISK LESS THAN 150 mg/dl LOW RISK 150 TO 199 mg/dl BORDERLINE RISK 200 mg/dl AND GREATER HIGH RISK Performed By: #### 0 0121, 32944, 45685, 07487, 21988, 64474, 47735, 03518 #### [facility] [address] [place] [address], [facility] VLDL CHOL 9 mg/dL Normal 0-40 [facility] Comment on above: Performed By: #### 0 0121, 23062, 67464, 47675, 55597, 52129, 30880, 66930 #### [facility] [address] [place] [address], [facility] MAGNESIUM BLOODon 02-16-2021 Magnesium [Mass/Vol] 1.5 mg/dL Low 1.9-2.7 [facility] Comment on above: Performed By: #### 4 5506, 77096, 79181, 08218, 26573, 80646 #### [facility] [address] [place] [address], [facility] PHOSPHORUS BLOODon Phosphate [Mass/Vol] 2.4 mg/dL Low 2.5-5.0 [facility] Comment on above: Performed By: #### 0 0121, 97453, 81171, 02051, 35099, 81013, 56653, 00664 #### [facility] [address] [place] [address], [facility] PROSPERAon 02-16-2021 PROSPERA KIT Results to be mailed directly to physician's office by reference lab. Normal [facility] Comment on above: Result Comment: Test performed by [id number] [place] [id number] No result expected. For billing and tracking purposes only. Specimen collected for transplant patient and sent to [facility] per Dr instructions. No charge. Performed By: #### 4 5506, 82214, 65505, 13239, 75827, 96160 #### [facility] [address] [place] [address], [facility] RESULT Results to be mailed directly to physician's office by reference lab. Normal [facility] Comment on above: Performed By: #### 4 5506, 27786, 97284, 67050, 11273, 34552 #### [facility] [address] [place] [address], [facility] PTH INTACTon 02-16-2021 PTH INTACT 123 pg/mL High 12-88 [facility] Comment on above: Performed By: #### 4 5506, 50895, 24253, 11030, 25040, 67411 #### [facility] [address]. [address] SINGLE ANTIGEN CLASS 1on METHOD Class I Single Antigen Normal [facility] Comment on above: Order Comment: Some of [...] to frequency. Performed By: #### 4 5506, 23548, 10316, 97201, 04261, 15991 #### [facility] [address] [place] [address], [facility] SINGLE ANTIGEN CLASS 2on COMMENTS Normal [facility] Comment on above: Order Comment: Some of [...] Antigen Microbeads Performed By: #### 4 5506, 15502, 51211, 70453, 52589, 60359 #### [facility] [address] Result Comment: No C lass I donor specific antibody identified Class I Antigen Microbeads METHOD Class II Single Antigen Normal [facility] Comment on above: Order Comment: Some of [...] to frequency. Performed By: #### 4 5506, 69018, 84401, 36286, 87699, 27703 #### [facility] [address]. [address] SIGNED BY Normal [facility] Comment on above: Order Comment: Some of [...] frequency. Result Comment: Jose A Lara, MS,CHT(IRINEO),MT(ASCP) Flow Coordinator, Transplant Immunology Performed By: #### 4 5506, 26394, 89759, 94865, 57285, 12489 #### [facility] [address] TACROLIMUSon 02-16-2021 Tacrolimus (Bld) [Mass/Vol] 7.0 ng/mL Normal 5.0-20.0 [facility] Comment on above: Result Comment: The [employer] Tacrolimus assay is a delayed one-step immunoassay for the quantitative determination of tacrolimus in human whole blood using the chemiluminescent microparticle immunoassay (CMIA) technology with flexible assay protocols, referred to as Chemiflex. Performed By: #### 4 5506, 50978, 39596, 68308, 37159, 49280 #### [facility] [address] [place] [address], [facility] TESTOSTERONE, FREE+SHBG+TOTA L ILon 02-16-2021 [place] Normal [facility] Comment on above: Result Comment: Test Performed by [employer] [address] [place] [address] - Released 02/16/2021 18:49 SEX HORM BIND GLOB 52 nmol/L Normal 11-80 [facility] Testosterone [Mass/Vol] 399 ng/dL Normal 220-1000 [facility] TESTOSTERONE, FREE 60.0 pg/mL Normal 47-244 [facility] Comment on above: Result Comment: The concentration of free testosterone is derived from a mathematical expression based on the constant for the binding of testosterone to albumin and/or sex hormone binding globulin. URIC ACID BLOODon 02-16-2021 Urate [Mass/Vol] 8.0 mg/dL High 4.4-7.6 [facility] Comment on above: Performed By: #### 0 0121, 22152, 18352, 85441, 80558, 66431, 23943, 64211 #### [facility] [address] [place] [address], [facility] VITAMIN D 25-HYDROXYon 02-16 VITAMIN D 25-OH 35.1 ng/mL Normal 30.0-80.0 [facility] Comment on above: Result Comment: >80. 0 Toxicity possible Performed By: #### 4 5506, 68781, 04272, 49005, 03111, 78888 #### [facility] [address] [place] [address], [facility] Vital Signs Date Time Vital Sign Value Performing Clinician Facility 03-05-2022 09:30-0400 Diastolic blood pressure 74 mm[Hg] MD Jericho Mccarthy Work Phone: [facility] 03-05-2022 09:30-0400 Heart rate 58 /min MD Jericho Mccarthy Work Phone: [facility] 03-05-2022 09:30-0400 Respiratory rate 18 /min MD Jericho Mccarthy Work Phone: [facility] 03-05-2022 09:30-0400 SaO2% (BldA) [Mass fraction] 99 % MD Jericho Mccarthy Work Phone: [facility] 03-05-2022 09:30-0400 Systolic blood pressure 133 mm[Hg] MD Jericho Mccarthy Work Phone: [facility] 03-05-2022 07:01-0400 Body height 167.64 cm MD Jericho Mccarthy Work Phone: [facility] 03-05-2022 07:01-0400 Body temperature 97.9 [degF] MD Jericho Mccarthy Work Phone: [facility] 03-05-2022 07:01-0400 Body weight 74.84 kg MD Jericho Mccarthy Work Phone: [facility] 01-21-2022 10:30-0400 Body height 167.64 cm Tj Wells Other [facility] Other 01-21-2022 10:30-0400 Body mass index (BMI) [Ratio] 26.47 kg/m2 Tj Wells Other [facility] Other 01-21-2022 10:30-0400 Body weight 74.39 kg Tj Wells Other [employer] Other 01-21-2022 10:30-0400 Diastolic blood pressure 71 mm[Hg] Tj Wells Other [employer] Other 01-21-2022 10:30-0400 Systolic blood pressure 148 mm[Hg] Tj Wells Other [employer] Other Encounters Encounter Date Encounter Type Care Provider Facility Start: 05-22-2023 End: 05-22-2023 ambulatory JERICHO MCCARTHY Not Available Start: 05-19-2023 End: 05-19-2023 ambulatory JERICHO ABAD [facility] Start: 04-28-2023 Evaluation and management of inpatient ESTHER HORDORA [facility] Start: 04-28-2023 Evaluation and management of inpatient NOBOBJASVIR ARGUELLODARCY [facility] Start: 04-28-2023 End: 04-30-2023 Evaluation and management of inpatient MENDY DEONTE [facility] Start: 04-22-2023 End: 04-22-2023 ambulatory BENJA MCGHEE [facility] Start: 11-11-2022 End: 11-11-2022 ambulatory JERICHO ABAD [facility] Start: 10-04-2022 End: 10-04-2022 ambulatory MARIO EGAN [facility] Start: 10-03-2022 End: 10-04-[address] DOCTOR [...] Start: 03-05-2022 End: 03-05-2022 ambulatory Tj Wells Facility:[facility] Start: 03-05-2022 End: 03-05-2022 Admission to same day surgery center MD Jericho Mccarthy Work Phone: [facility] Start: 03-05-2022 End: 03-05-2022 ambulatory MD Jericho Mccarthy Work Phone: [facility] Work Phone: Start: 03-01-2022 End: 03-01-2022 ambulatory Tj Wells Facility:[facility] Start: 03-01-2022 End: 03-01-2022 ambulatory MD Jericho Mccarthy Work Phone: [facility] Work Phone: Start: 03-01-2022 End: 03-01-2022 Patient encounter procedure MD Jericho Mccarthy Work Phone: [facility] Start: 02-01-2022 End: 02-02-[address] DOCTOR MCCABE Facility:[facility] Start: 01-21-2022 End: 01-21-2022 ambulatory Tj Wells Other World Review[employer] Other Start: 01-21-2022 Office outpatient ne w 45 minutes Tj Wells [facility] Start: 01-04-2022 End: 01-05-[address] [...] Date Care Activity Detail Author Start: 03-05-2022 [facility] Patient Education [facility] Work Phone: Immunizations Immunization Date Immunization Notes Care Provider German vargas 04-30-2021 COVID-19 mRNA Bivale nt Booster (Pfizer) MD Jericho Mccarthy Work Phone: [facility] 08-01-2020 COVID-19 mRNA, Comirnaty (Pfizer) MD Jericho Mccarthy Work Phone: [facility] 07-12-2020 COVID-19 mRNA Comirnatjuju (Pfizer) MD Jericho Mccarthy Work Phone: [facility] 02-13-2017 influenza, seasonal, injectable Tj Wells Other [employer] Other 06-27-2016 influenza, seasonal, injectable Tj Wells Other [employer] Other 02-01-2016 pneumococcal polysaccharide vaccine, 23 valent Tj Wells Other [employer] Other Payers Date Payer Category Payer Private Health Insurance [id number] 2022 Self-pay [id number] 2022 Unknown [id number] 1958 Medicare [id number] 2.1 [id number] 1959 Private Health Insurance [id number] 1951 Unknown [id number] 2.16.84 0.1.605549.3.579.2.593 1950 Unknown [id number] 2.16.84 0.1.549298.3.579.2.593 1950 Unknown [id number] 2.16.84 0.1.097210.3.579.2.593 1951 Unknown [id number] 2.16.84 0.1.346259.3.579.2.593 1951 Unknown [id number] 2.16.84 0.1.835650.3.579.2.593 1951 Unknown [id number] 2.16.84 0.1.788316.3.579.2.593 1951 Unknown [id number] 2.16.84 0.1.298198.3.579.2.593 1951 Unknown [id number] 2.16.84 0.1.404383.3.579.2.593 1951 Unknown [id number] 2.16.84 0.1.021398.3.579.2.593 1951 Unknown [id number] 2.16.84 0.1.557820.3.579.2.593 1951 Unknown [id number] 2.16.84 0.1.231135.3.579.2.593 1951 Unknown [id number] 2.16.84 0.1.986228.3.579.2.593 1951 Unknown [id number] 2.16.84 0.1.567136.3.579.2.1259 Unknown [id number] 2.16.8 40.1.769717.3.579.2.531 Unknown [id number] 2.16.8 40.1.281882.3.579.2.531 Social History Date Type Detail Facility Unknown if ever smoked World Reviewer Other Sex Assigned At Sex Assigned At Bir th World Reviewer Other Start: 11-11-2019 End: 03-05-2022 Tobacco smoking status NHIS Ex-smoker (finding) [facility] Start: 1950 Sex Assigned At Male F [facility] Medical Equipment Procedure Code Equipment Code [...] low Mag level today with Jericho Doran TELEPHONE ENGINEER and was taking 8-9 tablets daily but is now reducing to Mag Oxide 800mg TID. [facility] 05-19-2023 Note 05/19/23 Chief Complaint Patient presents with Kidney Follow-up No concerns PCP: Jericho Mccarthy MD Txp Referring: Preferred Pharmacy: [id number] [place], [place] - [address] [facility] [address] [facility] [phone] [facility] [address] [address] [facility] [address] [place] [address] [address] Subjective Visit Vitals BP 120/62 (BP Location: [...] Dose Status aMILoride (Midamor) 5 mg tablet [id number] Yes Take 5 mg by mouth in the morning. Historical Provider, MD Taking Active amLODIPine (Norvasc) 10 mg tablet [id number] Yes Take 1 tablet (10 mg) by mouth in the morning. Benja Mcghee MD Taking Active atorvastatin (Lipitor) 10 mg tablet [id number] Yes Take 1 tablet (10 mg) by mouth every other day. Mario Egan NP Taking Active blood-glucose meter misc [id number] Yes Test daily before all meals/snacks and once before bedtime. With 100 lancets and strips Esther Garduno MD Taking Active carvedilol (Coreg) 12.5 mg tablet [id number] Yes Take 1 tablet (12.5 mg) by mouth with breakfast and with evening meal. Mario Egan NP Taking Active cinacalcet (Sensipar) 30 mg tablet [id number] Yes Take 1 tablet every day by oral route. Praveena Cohen MD Taking Active furosemide (Lasix) 20 mg tablet [id number] Yes take 1 tablet by mouth once daily Naga Bosch MD Taking Active insulin glargine (Lantus Solostar U-100 Insulin) 100 unit/mL (3 mL) injection pen [id number] Yes Inject 20 Units under the skin at bedtime. Esther Garduno MD Taking Active isopropyl alcohoL 70 % towelette [id number] Yes Test daily before all meals/snacks and once before bedtime. Esther Garduno MD Taking Active lisinopril 20 mg tablet [id number] Yes Take 1 tablet (20 mg) by mouth in the morning. Benja Mcghee MD Taking Active magnesium oxide (Mag-Ox) 400 mg (241.3 mg magnesium) tablet [id number] Yes take 2 tablets by mouth three times a day with meals Woodrow Root MD Taking Active metFORMIN (Glucophage) 500 mg tablet [id number] Yes Take 1 tablet (500 mg) by mouth with breakfast and with evening meal. Esther Garduno MD Taking Active mycophenolate (Myfortic) 180 mg EC tablet [id number] Yes Take 4 tablets (720 mg) by mouth in the morning and at bedtime. Jericho Abad NP Taking Active omeprazole OTC (PriLOSEC OTC) 20 mg EC tablet [id number] Yes Take 1 tablet (20 mg) by mouth before breakfast. Do not crush, chew, or split. Esther Garduno MD Taking Active pen needle, diabetic 31 gauge x 5/16 needle [id number] Yes Use to inject 1-4 times daily as directed. Esther Garduno MD Taking Active sildenafil (Revatio) 20 mg tablet [id number] Yes Take 1 tablet 3 times a day by oral route for 90 days. Benja Mcghee MD Taking Active sulfaSALAzine (Azulfidine) 500 mg EC tablet [id number] Yes Take 500 mg by mouth in the morning and at bedtime. Dane Kerr MD Taking Active tacrolimus (Prograf) 0.5 mg capsule [id number] Yes Take 1 capsule (0.5 mg) by [...] Brother ALS Brother (more content not included)... [facility] 05-14-2023 Note Patient states he mi ssed a few doses of magnesium and will get back started on and restart the amlodipine per Dr Dk dhaliwal. [facility] 04-30-2023 Note Attestation signed by Ananda Pan [...] as a transfer from outside hospital in [place] for concerns of possible DKA, hyponatremia, and [...] Dose Status aMILoride (Midamor) 5 mg tablet [id number] Take 1 tablet (5 mg) by mouth in the morning. Woodrow Root MD Active amLODIPine (Norvasc) 10 mg tablet [id number] Take 1 tablet (10 mg) by mouth in the morning. Benja Mcghee MD Active atorvastatin (Lipitor) 10 mg tablet [id number] Take 1 tablet (10 mg) by mouth every other day. Mario Egan NP Active carvedilol (Coreg) 12.5 mg tablet [id number] Take 1 tablet (12.5 mg) by mouth with breakfast and with evening meal. Mario Egan NP Active cinacalcet (Sensipar) 30 mg tablet [id number] Take 1 tablet every day by oral route. Praveena Cohen MD Active furosemide (Lasix) 20 mg tablet [id number] take 1 tablet by mouth once daily Naga Bosch MD Active lisinopril 20 mg tablet [id number] Take 1 tablet (20 mg) by mouth in the morning. Benja Mcghee MD Active magnesium oxide (Mag-Ox) 400 mg (241.3 mg magnesium) tablet [id number] take 2 tablets by mo (more content not included)... [facility] 04-30-2023 Note Hospital Medicine Discharge Summary Final Discharge Diagnosis: DKA Admission Diagnosis: DAVID (acute kidney injury) ([facility]) [N17.9] Hospital course: 72 y.o. male who came from home with DAVID with hyponatremia and uncontrolled hyperglycemia. This is a 72 years old gentleman with a medical history of end-stage renal disease s/p renal transplant 3 years ago here in [facility], peripheral vascular disease, pulmonary hypertension, CAD, and hypertension. Mixed hyperlipidemia, COPD, polycystic kidneys, cataract. Came in as transfer from the outside facility hospital in [place] for concern of possible uncontrolled hyperglycemia with [...] Center 05/02/2023 9:00 AM Ramos Hendrickson PA-C [facility] 05/19/2023 9:00 AM Jericho Abad NP TXP [...] These medications were sent to [id number] - [place], [place] - [address] [address] blood-glucose meter [facility] insulin glargine 100 unit/mL (3 mL) injection [...] [id number] - (more content not included)... [facility] 04-29-2023 Note Hospital Medicine Daily Progress Note - 04/29/2023 11:18 AM; Room: [address] [place] [address] Admission: 04/27/2023 10:59 PM; Length of stay: 2 days THE HOSPITALIST TEAM PREFERS TO USE [employer] CHAT FOR COMMUNICATION 7AM-7PM. IF I DO NOT RESPOND WITHIN 15 MINUTES, PLEASE PAGE ME/CALL THROUGH THE LIBRARIAN HELPER. FROM 7PM-7AM, PLEASE PAGE [phone](COVR) Code Status: Full Code Barriers to Discharge: [...] Problems Principal Problem: DAVID (acute kidney injury) ([facility]) Assessment and Plan # DKA in [...] Academy of Nutrition and Dietetics and the [place] Society of Enteral and Parenteral Nutrition, meets [...] 0.67-0.73. Medial ki (more content not included)... [facility] 04-29-2023 Note Attestation signed by Ananda Pan [...] as a transfer from outside hospital in [place] for concerns of possible DKA, hyponatremia, and [...] Dose Status aMILoride (Midamor) 5 mg tablet [id number] Take 1 tablet (5 mg) by mouth in the morning. Woodrow Root MD Active amLODIPine (Norvasc) 10 mg tablet [id number] Take 1 tablet (10 mg) by mouth in the morning. Benja Mcghee MD Active atorvastatin (Lipitor) 10 mg tablet [id number] Take 1 tablet (10 mg) by mouth every other day. Mario Egan NP Active carvedilol (Coreg) 12.5 mg tablet [id number] Take 1 tablet (12.5 mg) by mouth with breakfast and with evening meal. Mario Egan NP Active cinacalcet (Sensipar) 30 mg tablet [id number] Take 1 tablet every day by oral route. Praveena Cohen MD Acti (more content not included)... [facility] 04-28-2023 Note Hospital Medicine Daily Progress Note - 04/28/2023 12:34 PM; Room: [address] [place] [address] Admission: 04/27/2023 10:59 PM; Length of stay: 1 days THE HOSPITALIST TEAM PREFERS TO USE [employer] CHAT FOR COMMUNICATION 7AM-7PM. IF I DO NOT RESPOND WITHIN 15 MINUTES, PLEASE PAGE ME/CALL THROUGH THE LIBRARIAN HELPER. FROM 7PM-7AM, PLEASE PAGE [phone](COVR) Code Status: Full Code Barriers to Discharge: [...] Problems Principal Problem: DAVID (acute kidney injury) ([facility]) Assessment and Plan # DKA in [...] Academy of Nutrition and Dietetics and the [place] Society of Enteral and Parenteral Nutrition, meets [...] Cardiac silhouette is (more content not included)... [facility] 04-28-2023 Note . Hospital Medicine History and Physical 04/27/2023 11:16 PM THE HOSPITALIST TEAM PREFERS TO USE Novaliq CHAT FOR COMMUNICATION 7AM-7PM. IF I DO NOT RESPOND WITHIN 15 MINUTES, PLEASE PAGE ME/CALL THROUGH THE LIBRARIAN HELPER. FROM 7PM-7AM, PLEASE PAGE [phone](COVR) Chief Complaint No chief complaint on file. History of Present Illness Roger Suarez is an 72 y.o. male who came from home with DAVID with hyponatremia and uncontrolled hyperglycemia. This is a 72 years old gentleman with a medical history of end-stage renal disease s/p renal transplant 3 years ago here in [facility], peripheral vascular disease, pulmonary hypertension, CAD, and hypertension. Mixed hyperlipidemia, COPD, polycystic kidneys, cataract. Came in as transfer from the outside facility hospital in [place] for concern of possible uncontrolled hyperglycemia with [...] Diagnosis Date Noted DAVID (acute kidney injury) ([facility]) 04/27/2023 COLD (chronic obstructive lung disease) ([facility]) 04/16/2023 Essential hypertension, benign 04/16/2023 Pleurisy with effusion 04/16/2023 Polycystic kidney 04/16/2023 Moderate mixed hyperlipidemia not requiring statin therapy 04/16/2022 Cataract 01/29/2022 Congestive heart failure ([facility]) 01/29/2022 Coronary atherosclerosis 01/29/2022 Multiple congenital cysts of kidney 01/29/2022 History of renal transplant 10/31/2021 Increased infection risk status post immunosuppressive therapy 10/31/2021 Peripheral vascular disease ([facility]) 01/23/2018 End-stage renal disease ([facility]) 07/22/2009 Assessment and Plan #Acute kidney [...] this hospital stay by a member of [facility]. Past Medical History Past Medical History: Diagnosis Date CHF (congestive heart failure) ([facility]/HCC) Chronic kidney disease Coronary artery disease Hypertension Pulmonary hypertension ([facility]/HCC) Past Surgical History Past Surgical History: [...] file Tobacco Use (more content not included)... [facility] 04-22-2023 Note OR Cardiology - [facility] Subjective Roger Suarez is a 72 y.o. year old male patient being seen for 6 mo follow up pulmonary hypertension, CAD, and hypertension. C/o dizziness and LUE numbness. Denies chest pain and palpitations. ORTEGA is intermittent. Patient Active Problem List Diagnosis Cataract Congestive heart failure (CMS/HCC) Coronary atherosclerosis End-stage renal disease ([facility]/HCC) History of renal transplant Peripheral vascular disease ([facility]/HCC) Increased infection risk status post immunosuppressive [...] overload/acute heart failure admission on 08/2018 at [facility]. He had couple of dialysis session [...] lower extremity edema. Cardiac catheterization 03/04/2019: 1. Pybz-ll-owhgigrp single-vessel coronary artery disease with 50% stenosis in the mid to distal circumflex and minimal disease in the LAD and RCA. 2. Moderate elevation of filling pressures. 3. Moderate pulmonary hypertension. 4. Preserved cardiac output and cardiac index. RA 8, RV 59/4, 12. PA (more content not included)... [facility] 04-02-2023 Note New standing lab ord er placed in today's outgoing mail. Following call from clinic [facility] that pt is @ [facility] for lab draws, faxed to [phone] new order and requested [facility] fax all lab results to [place] transplant as last monthly lab results were received September 2022. Pt notified order sent & mailed and to contact [facility] transplant monthly when labs are completed to confirm receipt or have testing @ [facility]. He acknowledged. Encouraged to FU next week with OR transplant. [facility] 11-13-2022 Note Received call from alzara huntley inquiring about Amiloride. Rx sent as ordered on Friday. Pt mailed tips for diarrhea stating liquid Maalox is not helpful. States he is taking six Mag tablets every day. Reviewed probiotic and Miralax tip with pt by phone. Verbalized understanding. [facility] 11-11-2022 Note Notified pt that his Hgb AIC 8.5 and to contact PCP for improved glucose control to preserve health of kidney transplant and general health. Pt verbalized understanding. [facility] 11-11-2022 Note Updated Dk MOSES by phone today Reviewed Mag level 1.3 and per MD phone order start Amiloride 5mg every day and to watch K levels. Detailed voicemail left on home phone [phone] with new Rx, reason for change and to watch K levels. Tac pending. No voicemail on listed cell phone. Spoke with lis Miller emergency contact [phone] who sets up his meds. She was advised of new RX and she stated she is unsure if pt is taking Mag Oxide due to side effects of diarrhea. Advised to resume dosing and discussed tips for diarrhea including liquid Maalox with each dose and she verbalized understanding (states she had kidney transplant and takes Mag). Plans to fill amiloride dosing. [facility] 11-11-2022 Note 11/11/22 Chief Complaint Patient presents with Kidney Follow-up 6 mo follow No concerns PCP: Jericho Mccarthy MD Txp Referring: Preferred Pharmacy: [id number] [address] [facility] - [address] [address] Subjective Visit Vitals BP 134/61 (BP Location: Right arm, Patient Position: Sitting) Pulse 56 Temp 36.4 ???C (97.6 ???F) (Oral) Ht 1.676 m (5' 6 ) Wt 77.7 kg (171 lb 6.4 oz) BMI 27.66 kg/m??? Smoking Status Former BSA 1.9 m??? Allergies Allergen Reactions Nsaids (Non-Steroidal Anti-Inflammatory Drug) Medication Documentation Review Audit Reviewed by Judith Royal MA (Commercial Food Instructor) on 11/11/22 at 0830 Medication Order Taking? Sig Documenting Provider Last Dose Status amLODIPine (Norvasc) 10 mg tablet [id number] Yes Take 1 tablet (10 mg) by mouth in the morning. Benja Mcghee MD Taking Active atorvastatin (Lipitor) 10 mg tablet [id number] Yes Take 1 tablet (10 mg) by mouth every other day. Mario Egan NP Taking Active carvedilol (Coreg) 12.5 mg tablet [id number] Yes Take 1 tablet (12.5 mg) by mouth with breakfast and with evening meal. Mario Egan NP Taking Active cinacalcet (Sensipar) 30 mg tablet [id number] Yes Take 1 tablet every day by oral route. Praveena Cohen MD Taking Active furosemide (Lasix) 20 mg tablet [id number] Yes take 1 tablet by mouth once daily Naga Bosch MD Taking Active lisinopril 20 mg tablet [id number] Yes Take 1 tablet by mouth in the morning. Historical Provider, Taking Active magnesium oxide (Mag-Ox) 400 mg (241.3 mg magnesium) tablet [id number] Yes take 2 tablets by mouth three times a day with meals Woodrow Root MD Taking Active mycophenolate (Myfortic) 180 mg EC tablet [id number] Yes Take 4 tablets (720 mg) by mouth in the morning and at bedtime. Jericho Abad NP Taking Active sildenafil (Revatio) 20 mg tablet [id number] Yes Take 1 tablet 3 times a day by oral route for 90 days. Mario Egan NP Taking Active sulfaSALAzine (Azulfidine) 500 mg EC tablet [id number] Yes Take 500 mg by mouth in the morning and at bedtime. Historical Provider, Taking Active tacrolimus (Prograf) 0.5 mg capsule [id number] Yes Take 1 capsule (0.5 mg) by [...] hypertension, heart roshan (more content not included)... [facility] 10-04-2022 Note Patient here for 6 m o follow up CAD, pulmonary hypertension, and hx of renal transplant. Just had monthly labs drawn yesterday. Denies chest pain and SOB. No new cardiac symptoms. Doing well. Review of Systems Cardiovascular: Positive for leg swelling. Musculoskeletal: Positive for arthritis and back pain. Neurological: Positive for light-headedness. All other systems reviewed and are negative. [facility] 10-04-2022 Note Cardiovascular Medic [facility] SUBJECTIVE Chief Complaint Patient presents with [...] Ref Range Status (more content not included)... [facility] 03-05-2022 Procedure note [facility] 01-21-2022 Evaluation note Encounter Date Diagnosis Assessment Notes Jan, Diarrhea (ICD-10 - R19.7) Colonoscopy Okay to take Imodium - 1 tablet every morning Jan, Fecal urgency (ICD-10 - R15.2) World Reviewer Other 05-01-2010 History general Narrative - Reported* [...] Hospitalization History Kidney Issue; on transplant list ([facility]) 02/2018 Hospitalization History pulmonary embolism 0 World Reviewer Other Evaluation noteNo assessment information available [facility] Work Phone: Evaluation note* Diagnosis Onset Date Resolution Status Diarrhea acute [facility] Work Phone: Hospital Discharge instructions Additional [...] if you have any problems. -Office number [phone] Work Phone: Reason for visit NarrativePATIENT REFERRED BY DR. MCCARTHY FOR EVALUATION AND TREATMENT OF DIARRHEAPerry [employer] Other Summary Purpose Family History No Family [...] section and content) DATE CREATED AUTHOR 07/13/2019 [facility] DATE CREATED AUTHOR AUTHOR'S ORGANIZ ATION 11/02/2021 [facility] DATE CREATED AUTHOR AUTHOR'S ORGANIZ ATION 03/12/2022 [facility] DATE CREATED AUTHOR AUTHOR'S ORGANIZ ATION 10/18/2022 [facility] DATE CREATED AUTHOR AUTHOR'S ORGANIZ ATION 05/23/2023 [facility] DATE CREATED AUTHOR AUTHOR'S ORGANIZ ATION 06/12/2023 [facility] Care Teams (unrecognized sec tion and [...] BE BASED ON THE PRIMARY CLINICAL RECORDS. [facility]. provides no warranty or guarantee of the accuracy or completeness of information in this document.
[2023-07-11 07:50] LABS: Basophils Percent Auto 0.4 % (0.2-2.0); Eosinophils Absolute Auto 0.2 10^3/uL (0.0-0.7); Eosinophils Percent Auto 2.6 % (0.9-7.0); Hematocrit 34.7 % (42.0-54.0); Hemoglobin 11.2 g/dL (14.0-18.0); Immature Granulocytes Abs Auto 0.02 10^3/uL (0.00-0.03); Immature Granulocytes Pct Auto 0.3 % (0.0-0.5); Lymphocytes Absolute Auto 0.9 10^3/uL (1.2-3.8); Lymphocytes Percent Auto 12.3 % (20.5-60.0); Mean Corpuscular HGB Conc 32.3 g/dL (29.9-35.2); Mean Corpuscular Hemoglobin 29.5 pg (25.9-34.0); Mean Corpuscular Volume 91.3 fL (80.0-94.0); Mean Platelet Volume 9.3 fL (9.5-13.5); Monocytes Absolute Auto 0.5 10^3/uL (0.3-0.8); Monocytes Percent Auto 7.3 % (1.7-12.0); Neutrophils Absolute Auto 5.6 10^3/uL (1.4-6.5); Neutrophils Percent Auto 77.1 % (43.0-75.0); Platelet Count 270 10^3/uL (150-450); Red Cell Distribution Width 13.8 % (11.0-15.0); White Blood Count 7.2 10^3/uL (4.0-11.0)
[2023-07-11 08:04] LABS: Alanine Aminotransferase 14 U/L (16-63); Albumin Globulin Ratio 1.2; Alkaline Phosphatase 95 U/L (46-116); Anion Gap 11.3; Aspartate Amino Transferase 13 U/L (15-37); BUN Creatinine Ratio 19.8; Bilirubin Direct 0.1 mg/dL (0.0-0.2); Bilirubin Total 0.3 mg/dL (0.2-1.0); Carbon Dioxide 28.8 mmol/L (21.0-32.0); Chloride 98 mmol/L (98-107); Estimated GFR (African America >60 (>=60); Estimated GFR (Non-African Ame >60 (>=60); Globulin 3.4 g/dL; Glucose 85 mg/dL (74-106); Phosphorus 4.5 mg/dL (2.6-4.7); Potassium 5.1 mmol/L (3.5-5.1); Sodium 133 mmol/L (136-145); Total Protein 7.4 g/dL (6.4-8.2); Uric Acid 6.3 mg/dL (3.5-7.2)
[2023-07-14 15:08] LABS: Osmolality, Urine 213 mOsmol/kg (.); Tacrolimus (FK506), Blood 3.5 ng/mL (2.0-20.0)
== END 2023-07-11 07:05 | disposition home or self-care (01) ==
LOC: LAB 07:06
PROVIDERS: PCP Family Medicine
DX: R73.02 Impaired glucose tolerance (oral) (principal); Z94.0 Kidney transplant status; E87.1 Hypo-osmolality and hyponatremia
CPT/HCPCS: 36415; 80053; 80197; 82248; 83735; 83935; 84100; 84550; 85025

== ENCOUNTER 2023-08-22 06:55 | Outpatient (OUT) | payer MEDICARE, OTHER, SELFPAY ==
--- OUTSIDE RECORDS SUMMARY | 2023-08-22 07:00 | XMS_ITS | CCD ---
Author Organization [facility] Care Team Providers Care President Sales And Marketing Name Role Phone Tj Wells Unavailable MD Jericho Mccarthy Primary Care Provider MD Tj Wells Attending Provider [phone] Tj Wells Attending Unavailabl e EricereJericho sullivan Primary Care Unavailable Tj Wells Admitting Unavailabl e Maira, Tj Sullivan Admitting Unavailabl e Tj Wells Attending Unavailabl e Jericho Mccarthy Primary Care Unavailable MISC, DR ALVAREZ Attending Unavailable MISC, DR ALVAREZ Admitting Unavailable MISC, DR ALVAREZ Consulting Unavailable NADERER, DR FERGUSON A Primary Care Unavailable KIANA, DR MERRITT Consulting Unavailable KIANA, DR MERRITT Attending Unavailable KIANA, DR MERRITT Admitting Unavailable NADERER, DR FERGUSON A Primary Care Unavailable MISC, DR ALVAREZ Attending Unavailable MISC, DR ALVAREZ Admitting Unavailable NADERER, DR FERGUSON A Primary Care Unavailable MISC, DR ALVAREZ Consulting Unavailable KIANA, DR MERRITT Consulting Unavailable KIANA, DR MERRITT Attending Unavailable NADERER, DR FERGUSON A Primary Care Unavailable KIANA, DR MERRITT Admitting Unavailable MISC, DR ALVAREZ [...] Admitting Unavailable MISC, DR ALVAREZ Consulting Unavailable NADERENate, DR FERGUSON A Primary Care Unavailable MISC, DR ALVAREZ Attending Unavailable MISC, DR ALVAREZ Admitting Unavailable MISC, DR ALVAREZ Consulting Unavailable NADERENate, DR FERGUSON A Primary Care Unavailable MISC, DR ALVAREZ Attending Unavailable NADERER, DR JERICHO A Primary Care Unavailable IAN ., DR WINTERS Consulting Unavailable IAN ., DR WINTERS Attending Unavailable IAN ., DR WINTERS Admitting Unavailable MIS, DR ALVAREZ Admitting Unavailable MIS, DR ALVAREZ Consulting Unavailable FABIO, DR JERICHO Floyd Primary Care Unavailable MIS, DR ALVAREZ Attending Unavailable MISC, DR ALVAREZ Attending Unavailable MISC, DR ALVAREZ Admitting Unavailable MISC, DR ALVAREZ Consulting Unavailable FABIO, DR JERICHO Floyd Primary Care Unavailable JERICHO MCCARTHY Attending Unavailable HORANI, ESTHER Referring Unavailable KATKO, MENDY Referring Unavailable CHRISTIAN, GYPSY Admitting Unavailable HORANI, ESTHER Attending Unavailable MERZA, NOORALDIN Referring Unavailable MERZA, NOORALDIN Referring Unavailable PRICE MARTINES Attending Unavailable BENJA MCGHEE Attending Unavailable MARIO EGAN Attending Unavailable JERICHO ABAD Attending Unavailable JERICHO ABAD Attending Unavailable Allergies Allergy Classification Reported Allergen(s) Allergy Type Date of Onset Reaction(s) Facility (1 source) NSAIDs; Translations: [NSAIDS (NON-STEROIDAL ANTI-INFLAMMATOR Y DRUG)] Propensity to adverse reactions to drug (disorder) 2 [facility] Repository Medications Current Medications Medication Drug Class(es) [...] 2 MCG IVP MWF DURING DIALYSIS PER [facility] (08/26/18) 5 ml sodium ferric gluconate complex 12.5 mg/ml injection (2 sources) Start: 07-08-2017 End: 03-05-2022 Sodium Ferric Gluconat-Sucrose (Ferrlecit) 62.5 mg/5 mL Solution Discontinued 125 MG IV Q14D July 08, 2017 1:00am March 05, 2022 7:07am RECEIVES FERRLECIT 125MG IVP EVERY OTHER FRIDAY (DOSE DUE 08/26/18 PER [facility]) Problems Active Problems Problem Classification [...] disease (2 sources) Atherosclerotic heart disease of [place] coronary artery without angina pectoris; Translations: [Atherosclerotic heart disease of [place] coronary artery without angina pectoris] Onset: 04-22-20 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) 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; Translations: [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] Onset: 04-28-20 Chronic Diabetes mellitus without complication (2 sources) Impaired glucose tolerance (oral); Translations: [Impaired glucose tolerance (oral)] Onset: 07-09-19 Episodic Disorders of lipid metabolism (1 source) Pure hypercholesterolemia, unspecified; Translations: [PURE HYPERCHOLESTEROLEMIA UNSPEC] Onset: 11-17-19 Chronic Esophageal disorders (2 sources) Gastroesophageal reflux disease; Translations: [Gastro-esophageal reflux disease without esophagitis] 08-26-2018 Chronic Essential hypertension (5 sources) Hypertensive disorder; Translations: [Essential (primary) hypertension] Onset: 11-17-1908-26-2018 Chronic Fluid and electrolyte disorders (2 sources) Hypo-osmolality and hyponatremia; Translations: [Hypo-osmolality and hyponatremia] Onset: 07-09-19 Episodic Genitourinary congenital anomalies (3 sources) Multiple congenital cysts of kidney; Translations: [Polycystic kidney, unspecified] 08-26-2018 Chronic Hypertension with complications and secondary hypertension (2 sources) Hypertensive emergency; Translations: [Hypertensive emergency] 08-26-2018 Chronic Other aftercare (6 sources) 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; 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 AFTERCARE FLW OTH ORGN TRANSPL] Onset: 10-04-19 Chronic Other [...] ; Translations: [Acute pulmonary edema] 08-26-2018 Episodic Other nutritional; endocrine; and metabolic disorders (2 sources) Hypomagnesemia; Translations: [Hypomagnesemia] Onset: 05-19-19 24 Chronic Pulmonary heart disease (4 sources) Primary pulmonary [...] Diarrhea, unspecified; Translations: [Diarrhea, unspecified] Onset: 03-05-20 22 Unclassified (1 source) Encounter for preprocedural laboratory examination; Translations: [Encounter for preprocedural laboratory examination] Onset: 03-01-20 22 Unclassified (1 source) CONTACT W/AND (SUSP) EXPOS COVID-19; Translations: [CONTACT W/AND (SUSP) EXPOS COVID-19] Onset: 11-17-19 22 Unclassified (2 sources) Kidney Follow-up; Translations: [Kidney Follow-up] Onset: 11-12-19 23 Past or Other Problems Problem Classification Problem Date Documented Da te Episodic/Chronic Nausea and vomiting (3 sources) Nausea with vomiting, unspecified; Translations: [NAUSEA WITH VOMITING UNSPECIFIED] Onset: 11-14-2021 Episodic Noninfectious gastroenteritis (1 source) Noninfective gastroenteritis and colitis, unspecified; Translations: [NONINFECTIVE GE AND COLITIS UNS] Onset: 11-16-2021 Episodic Other aftercare (1 source) 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; Translations: [OTH LOAN TELLER CURRENT DRUG THERAPY] Onset: 03-10-2022 Episodic Other [...] Test Name Value Interpretation Reference Range Facility BILIRUBIN, DIRECTon 07-09-19 Magnesium [Mass/Vol] 0.2 mg/dL Normal 0-0.2 [facility] Comment on above: Performed By: #### L [id number] #### [facility] ([facility]) [address] [place] [address] CBC WITH AUTO DIFFERENTIALon 07-09-2023 Basophils (Bld) [#/Vol] 0.03 10*3/uL Normal 0.00-0.20 [facility] Comment on above: Performed By: #### L [id number] #### [facility] ([facility]) [address] [place] [address] Basophils/100 WBC (Bld) 0.4 % Normal 0.0-1.0 [facility] Comment on above: Performed By: #### L [id number] #### [facility] ([facility]) [address] [place] [address] Eosinophils (Bld) [#/Vol] 0.16 10*3/uL Normal 0.00-0.50 [facility] Comment on above: Performed By: #### L [id number] #### [facility] [address] [place] [address] Eosinophils/100 WBC (Bld) 1.9 % Normal 0.0-6.0 [facility] Comment on above: Performed By: #### L [id number] #### [facility] ([facility]) [address] [place] [address] Erythrocyte distribution width (RBC) [Ratio] 14.0 % Normal 11.5-15.0 [facility] Comment on above: Performed By: #### L [id number] #### [facility] [address] [place] [address] ERYTHROCYTE MEAN CORPUSCULAR HEMOGLOBIN CONCENTRATION (G/DL) BY AUTOMATED 34.4 g/dL Normal 32.0-35.0 [facility] Comment on above: Performed By: #### L [id number] #### [facility] ([facility]) [address] [place] [address] Hematocrit (Bld) [Volume fraction] 32.3 % Low 39.0-55.0 [facility] Comment on above: Performed By: #### L [id number] #### [facility] ([facility]) [address] [place] [address] Hemoglobin (Bld) [Mass/Vol] 11.1 g/dL Low 13.0-17.0 [facility] Comment on above: Performed By: #### L [id number] #### [facility] ([facility]) [address] [address] Immature granulocytes (Bld) [#/Vol] 0.05 10*3/uL Normal 0.00-0.20 [facility] Comment on above: Performed By: #### L [id number] #### [facility] ([facility]) [address] [place] [address] Immature granulocytes/100 WBC (Bld) 0.6 % Normal 0.0-1.0 [facility] Comment on above: Performed By: #### L [id number] #### [facility] ([facility]) [address] [place] [address] Lymphocytes (Bld) [#/Vol] 1.08 10*3/uL Low 1.20-4.00 [facility] Comment on above: Performed By: #### L [id number] #### [facility] [address] [place] [address] Lymphocytes/100 WBC (Bld) 12.7 % Low 20.0-45.0 [facility] Comment on above: Performed By: #### L [id number] #### [facility] ([facility]) [address] [place] [address] MCH (RBC) [Entitic mass] 30.0 pg Normal 27.0-33.0 [facility] Comment on above: Performed By: #### L [id number] #### [facility] [address] [place] [address] MCV (RBC) [Entitic vol] 87.3 fL Normal 82.0-98.0 [facility] Comment on above: Performed By: #### L [id number] #### [facility] ([facility]) [address] [place] [address] Monocytes (Bld) [#/Vol] 0.67 10*3/uL Normal 0.10-1.00 [facility] Comment on above: Performed By: #### L [id number] #### [facility] ([facility]) [address] [place] [address] Monocytes/100 WBC (Bld) 7.9 % Normal 5.0-12.0 [facility] Comment on above: Performed By: #### L [id number] #### [facility] ([facility]) [address] [place] [address] Neutrophils (Bld) [#/Vol] 6.49 10*3/uL Normal 1.60-7.60 [facility] Comment on above: Performed By: #### L [id number] #### [facility] ([facility]) [address] [place] [address] Neutrophils/100 WBC (Bld) 76.5 % High 40.0-72.0 [facility] Comment on above: Performed By: #### L [id number] #### [facility] ([facility]) [address] [place] [address] NRBC (PER 100 WBCS) BY AUTOMATED COUNT 0.0 % Normal 0 [facility] Comment on above: Performed By: #### L [id number] #### [facility] [address] [place] [address] PLATELETS (10*3/UL) IN BLOOD AUTOMATED COUNT 271 10*3/uL Normal 150-400 [facility] Comment on above: Performed By: #### L [id number] #### [facility] ([facility]) [address] [place] [address] RBC (Bld) [#/Vol] 3.70 10*6/uL Low 4.20-5.70 [facility] Comment on above: Performed By: #### L [id number] #### [facility] ([facility]) [address] [place] [address] WBC (Bld) [#/Vol] 8.48 10*3/uL Normal 4.00-10.60 [facility] Comment on above: Performed By: #### L [id number] #### [facility] ([facility]) [address] [place] [address] COMPREHENSIVE METABOLIC PANE Claudio 07-09-2023 Albumin [Mass/Vol] 4.4 g/dL Normal 3.5-5.7 [facility] Comment on above: Performed By: #### L [id number] #### [facility] ([facility]) [address] [place] [address] ALP [Catalytic activity/Vol] 82 U/L Normal 34-104 [facility] Comment on above: Performed By: #### L [id number] #### [facility] ([facility]) [address] [place] [address] ALT [Catalytic activity/Vol] 9 U/L Normal 7-52 [facility] Comment on above: Performed By: #### L [id number] #### [facility] ([facility]) [address] [place] [address] Anion gap [Moles/Vol] 15 mmol/L Normal 7-20 [facility] Comment on above: Performed By: #### L [id number] #### [facility] ([facility]) [address] [place] [address] AST [Catalytic activity/Vol] 14 U/L Normal 13-39 [facility] Comment on above: Performed By: #### L [id number] #### [facility] [address] [place] [address] Bilirubin [Mass/Vol] 0.5 mg/dL Normal 0.3-1.0 [facility] Comment on above: Performed By: #### L [id number] #### [facility] ([facility]) [address] [place] [address] Calcium [Mass/Vol] 9.1 mg/dL Normal 8.6-10.3 [facility] Comment on above: Performed By: #### L [id number] #### [facility] ([facility]) [address] [place] [address] Chloride [Moles/Vol] 93 mmol/L Low 98-107 [facility] Comment on above: Performed By: #### L [id number] #### [facility] ([facility]) [address] [place] [address] CO2 [Moles/Vol] 22 mmol/L Normal 21-31 [facility] Comment on above: Performed By: #### L [id number] #### [facility] ([facility]) [address] [place] [address] Creatinine [Mass/Vol] 1.01 mg/dL Normal 0.70-1.30 [facility] Comment on above: Performed By: #### L [id number] #### [facility] ([facility]) [address] [place] [address] GLOMERULAR FILTRATION RATE ML/MIN/1.73 SQ M.PREDICTED 79.5 mL/min/1.73m*2 Normal >60.[address] [facility] Comment on above: Result Comment: [facility]???s estimated glomerular filtration rate (eGFR) will no [...] group of individuals. Performed By: #### L [id number] #### [facility] [address] [place] [address] Glucose [Mass/Vol] 86 mg/dL Normal 70-100 [facility] Comment on above: Performed By: #### L [id number] #### [facility] ([facility]) [address] [place] [address] Potassium [Moles/Vol] 5.2 mmol/L High 3.5-5.1 [facility] Comment on above: Performed By: #### L [id number] #### [facility] ([facility]) [address] [place] [address] Protein [Mass/Vol] 6.8 g/dL Normal 6.0-8.3 [facility] Comment on above: Performed By: #### L [id number] #### [facility] ([facility]) [address] [place] [address] Sodium [Moles/Vol] 125 mmol/L Low 136-145 [facility] Comment on above: Performed By: #### L [id number] #### [facility] [address] [place] [address] Urea nitrogen [Mass/Vol] 17 mg/dL Normal 7-25 [facility] Comment on above: Performed By: #### L [id number] #### [facility] [address] [place] [address] UREA NITROGEN/CREATININE (MASS RATIO) IN SER/PLAS 16.8 Normal [facility] Comment on above: Performed By: #### L [id number] #### [facility] [address] [place] [address] Follow-Upon 07-09-2023 Follow-Up [id number] Wm Suarez 1950 M Date Provider Department Center 07/09/2023 [id number], SAMER TXP None Family History Problem Relation Age of Onset Diabetes Mother Hypertension Mother Coronary artery disease Mother Other Mother Cystic kidney disease Mother Hypertension Father Skin cancer Father Cystic kidney disease Father Cystic kidney disease Sister Heart disease Brother ALS Brother Cystic kidney disease Brother Family Status - Relation Status Age at Mother Father Sister Brother Level of Service:14433 MA OFFICE/OUTPATIENT ESTABLISHED LOW MDM 20 MIN Reason for Visit and Comments: Kidney Follow-up [] - Patient has no major concerns today Normal [facility] HEMOGLOBIN A1Con 07-09-2023 Glucose [Mass/Vol] 160 mg/dL Normal [facility] Comment on above: Performed By: #### L [id number] ####[facility] ([facility])[address] [place] [address] HbA1c (Bld) [Mass fraction] 7.2 % High 4.0-6.0 [facility] Comment on above: Performed By: #### L [id number] ####[facility] ([facility])[address] [place] [address] Labon 07-09-2023 Lab [id number] Wm Suarez 1950 Provider Department Raymond 07/09/202307825-GJK DRAW STATION KXT Draw [facility] Family History Problem Relation Age of Onset Diabetes Mother Hypertension Mother Coronary artery disease Mother Other Mother Cystic kidney disease Mother Hypertension Father Skin cancer Father Cystic kidney disease Father Cystic kidney disease Sister Heart disease Brother ALS Brother Cystic kidney disease Brother Family Status - Relation Status Age at Mother Father Sister Brother Normal [facility] MAGNESIUMon 07-09-2023 Magnesium [Mass/Vol] 1.5 mg/dL Low 1.9-2.7 [facility] Comment on above: Performed By: #### L [id number] ####[facility] ([facility])[address] [place] [address] OSMOLALITYon 07-09-2023 OSMOLALITY MEASURED 272 mOsm/kg Low 275-295 [facility] Comment on above: Result Comment: Test Performed by [facility] [address] [address] - Released 07/09/2023 16:01 Performed By: #### L [id number] #### [facility] ([facility]) [address] [place] [address] Orders Onlyon 07-09-2023 Orders Only [id number] Wm Suarez 1950 M Date Provider Department Center 07/09/2023 LAQUITA RAMON None Family History Problem Relation Age of Onset Diabetes Mother Hypertension Mother Coronary artery disease Mother Other Mother Cystic kidney disease Mother Hypertension Father Skin cancer Father Cystic kidney disease Father Cystic kidney disease Sister Heart disease Brother ALS Brother Cystic kidney disease Brother Family Status - Relation Status Age at Mother Father Sister Brother Normal [facility] PHOSPHORUSon 07-09-2023 Magnesium [Mass/Vol] 4.6 mg/dL Normal 2.5-5.0 [facility] Comment on above: Performed By: #### L [id number] #### [facility] ([facility]) [address] [place] [address] TACROLIMUS LEVELon Tacrolimus (Bld) [Mass/Vol] 4.3 ng/mL Low 5.0-20.0 [facility] Comment on above: Result Comment: The [employer]TE[employer]ATOR Tacrolimus assay is a delayed one-step immunoassay for the quantitative determination of tacrolimus in human whole blood using the chemiluminescent microparticle immunoassay (CMIA) technology with flexible assay protocols, referred to as Chemiflex. Performed By: #### L [id number] #### [facility] ([facility]) [address] [place] [address] URIC ACIDon 07-09-2023 Magnesium [Mass/Vol] 6.2 mg/dL Normal 4.4-7.6 [facility] Comment on above: Performed By: #### L [id number] #### [facility] ([facility]) [address] [place] [address] Orders Onlyon 06-11-2023 Orders Only [id number] Wm Suarez 1950 M Date Provider Department Center 06/11/2023 JERICHO [facility] Family History Problem Relation Age of Onset Diabetes Mother Hypertension Mother Coronary artery disease Mother Other Mother Cystic kidney disease Mother Hypertension Father Skin cancer Father Cystic kidney disease Father Cystic kidney disease Sister Heart disease Brother ALS Brother Cystic kidney disease Brother Family Status - Relation Status Age at Mother Father Sister Brother Normal [facility] BILIRUBIN, DIRECTon 05-19-19 Magnesium [Mass/Vol] 0.1 mg/dL Normal 0-0.2 [facility] Comment on above: Performed By: #### L [id number] #### [facility] ([facility]) [address] [place] [address] CBC WITH AUTO DIFFERENTIALon 05-19-2023 Basophils (Bld) [#/Vol] 0.03 10*3/uL Normal 0.00-0.20 [facility] Comment on above: Performed By: #### L [id number] #### [facility] ([facility]) [address] [place] [address] Basophils/100 WBC (Bld) 0.4 % Normal 0.0-1.0 [facility] Comment on above: Performed By: #### L [id number] #### [facility] ([facility]) [address] [place] [address] Eosinophils (Bld) [#/Vol] 0.18 10*3/uL Normal 0.00-0.50 [facility] Comment on above: Performed By: #### L [id number] #### [facility] ([facility]) [address] [place] [address] Eosinophils/100 WBC (Bld) 2.7 % Normal 0.0-6.0 [facility] Comment on above: Performed By: #### L [id number] #### [facility] ([facility]) [address] [place] [address] Erythrocyte distribution width (RBC) [Ratio] 13.7 % Normal 11.5-15.0 [facility] Comment on above: Performed By: #### L [id number] #### [facility] ([facility]) [address] [facility] [place] [address] ERYTHROCYTE MEAN CORPUSCULAR HEMOGLOBIN CONCENTRATION (G/DL) BY AUTOMATED 32.9 g/dL Normal 32.0-35.0 [facility] Comment on above: Performed By: #### L [id number] #### [facility] ([facility]) [address] [place] [address] Hematocrit (Bld) [Volume fraction] 34.0 % Low 39.0-55.0 [facility] Comment on above: Performed By: #### L [id number] #### [facility] [address] [place] [address] Hemoglobin (Bld) [Mass/Vol] 11.2 g/dL Low 13.0-17.0 [facility] Comment on above: Performed By: #### L [id number] #### [facility] ([facility]) [address] [facility] [place] [address] Immature granulocytes (Bld) [#/Vol] 0.02 10*3/uL Normal 0.00-0.20 [facility] Comment on above: Performed By: #### L [id number] #### [facility] ([facility]) [address] [place] [address] Immature granulocytes/100 WBC (Bld) 0.3 % Normal 0.0-1.0 [facility] Comment on above: Performed By: #### L [id number] #### [facility] ([facility]) [address] [place] [address] Lymphocytes (Bld) [#/Vol] 0.80 10*3/uL Low 1.20-4.00 [facility] Comment on above: Performed By: #### L [id number] #### [facility] ([facility]) [address] [place] [address] Lymphocytes/100 WBC (Bld) 11.9 % Low 20.0-45.0 [facility] [facility] Comment on above: Performed By: #### L [id number] #### [facility] (BEAKER) [address] [place] [address] MCH (RBC) [Entitic mass] 29.4 pg Normal 27.0-33.0 [facility] Comment on above: Performed By: #### L [id number] #### [facility] ([facility]) [address] [place] [address] MCV (RBC) [Entitic vol] 89.2 fL Normal 82.0-98.0 [facility] Comment on above: Performed By: #### L [id number] #### [facility] ([facility]) [address] [place] [address] Monocytes (Bld) [#/Vol] 0.54 10*3/uL Normal 0.10-1.00 [facility] Comment on above: Performed By: #### L [id number] #### [facility] ([facility]) [address] [place] [address] Monocytes/100 WBC (Bld) 8.0 % Normal 5.0-12.0 [facility] Comment on above: Performed By: #### L [id number] #### [facility] ([facility]) [address] [place] [address] Neutrophils (Bld) [#/Vol] 5.14 10*3/uL Normal 1.60-7.60 [facility] Comment on above: Performed By: #### L [id number] #### [facility] ([facility]) [address] [place] [address] Neutrophils/100 WBC (Bld) 76.7 % High 40.0-72.0 [facility] Comment on above: Performed By: #### L [id number] #### [facility] ([facility]) [address] [place] [address] NRBC (PER 100 WBCS) BY AUTOMATED COUNT 0.0 % Normal 0 [facility] Comment on above: Performed By: #### L [id number] #### [facility] (BEAKER) [address] [place] [address] PLATELETS (10*3/UL) IN BLOOD AUTOMATED COUNT 271 10*3/uL Normal 150-400 [facility] Comment on above: Performed By: #### L [id number] #### [facility] ([facility]) [address] [place] [address] RBC (Bld) [#/Vol] 3.81 10*6/uL Low 4.20-5.70 [facility] Comment on above: Performed By: #### L [id number] #### [facility] ([facility]) [address] [place] [address] WBC (Bld) [#/Vol] 6.71 10*3/uL Normal 4.00-10.60 [facility] Comment on above: Performed By: #### L [id number] #### [facility] ([facility]) [address] [place] [address] COMPREHENSIVE METABOLIC PANE Claudio 05-19-2023 Albumin [Mass/Vol] 4.5 g/dL Normal 3.5-5.7 [facility] Comment on above: Performed By: #### L [id number] #### [facility] ([facility]) [address] [place] [address] ALP [Catalytic activity/Vol] 85 U/L Normal 34-104 [facility] Comment on above: Performed By: #### L [id number] #### [facility] ([facility]) [address] [place] [address] ALT [Catalytic activity/Vol] 10 U/L Normal 7-52 [facility] Comment on above: Performed By: #### L [id number] #### [facility] ([facility]) [address] [place] [address] Anion gap [Moles/Vol] 15 mmol/L Normal 7-20 [facility] Comment on above: Performed By: #### L [id number] #### [facility] ([facility]) [address] [place] [address] AST [Catalytic activity/Vol] 13 U/L Normal 13-39 [facility] Comment on above: Performed By: #### L [id number] #### [facility] [address] [place] [address] Bilirubin [Mass/Vol] 0.5 mg/dL Normal 0.3-1.0 [facility] Comment on above: Performed By: #### L [id number] #### [facility] [address] [place] [address] Calcium [Mass/Vol] 9.1 mg/dL Normal 8.6-10.3 [facility] Comment on above: Performed By: #### L [id number] #### [facility] [address] [place] [address] Chloride [Moles/Vol] 99 mmol/L Normal 98-107 [facility] Comment on above: Performed By: #### L [id number] #### [facility] ([facility]) [address] [place] [address] CO2 [Moles/Vol] 22 mmol/L Normal 21-31 [facility] Comment on above: Performed By: #### L [id number] #### [facility] ([facility]) [address] [place] [address] Creatinine [Mass/Vol] 0.85 mg/dL Normal 0.70-1.30 [facility] Comment on above: Performed By: #### L [id number] #### [facility] [address] [place] [address] GLOMERULAR FILTRATION RATE ML/MIN/1.73 SQ M.PREDICTED 92.9 mL/min/1.73m*2 Normal >60.[address] [facility] Comment on above: Result Comment: The [facility]???s estimated glomerular filtration rate (eGFR) will no [...] individuals. Performed By: #### L [id number] #### [facility] ([facility]) [address] [place] [address] Glucose [Mass/Vol] 107 mg/dL High 70-100 [facility] Comment on above: Performed By: #### L [id number] #### [facility] ([facility]) [address] [place] [address] Potassium [Moles/Vol] 4.9 mmol/L Normal 3.5-5.1 [facility] Comment on above: Performed By: #### L [id number] #### [facility] ([facility]) [address] [place] [address] Protein [Mass/Vol] 6.7 g/dL Normal 6.0-8.3 [facility] Comment on above: Performed By: #### L [id number] #### [facility] ([facility]) [address] [place] [address] Sodium [Moles/Vol] 131 mmol/L Low 136-145 [facility] Comment on above: Performed By: #### L [id number] #### [facility] ([facility]) [address] [place] [address] Urea nitrogen [Mass/Vol] 15 mg/dL Normal 7-25 [facility] Comment on above: Performed By: #### L [id number] #### [facility] ([facility]) [address] [place] [address] UREA NITROGEN/CREATININE (MASS RATIO) IN SER/PLAS 17.6 Normal [facility] Comment on above: Performed By: #### L [id number] #### [facility] ([facility]) [address] [place] [address] Follow-Upon 05-19-2023 Follow-Up [id number] Wm Suarez 1950 Date Provider Department Center 05/19/2023 124-JERICHO ABAD TXP None Family History Problem Relation Age of Onset Diabetes Mother Hypertension Mother Coronary artery disease Mother Other Mother Cystic kidney disease Mother Hypertension Father Skin cancer Father Cystic kidney disease Father Cystic kidney disease Sister Heart disease Brother ALS Brother Cystic kidney disease Brother Family Status - Relation Status Age at Mother Father Sister Brother Level of Service:89606 MA OFFICE/OUTPATIENT ESTABLISHED MOD MDM 30 MIN Reason for Visit and Comments: Kidney Follow-up [] - No concerns Normal [facility] LIPID PANELon 05-19-2023 CHOL/HDL 1.9 mg/dL Normal [facility] Comment on above: Performed By: #### L [id number] #### [facility] ([employer]ed) [address] [facility] [place] [address] Cholesterol [Mass/Vol] 88 mg/dL Low 120-200 [facility] Comment on above: Performed By: #### L [id number] #### [facility] ([employer]) [address] [place] [address] Magnesium [Mass/Vol] 53 mg/dL Normal 40-149 [facility] Comment on above: Result Comment: TRIG LYCERIDE REFERENCE RANGE: 20 YEARS AND OLDER CARDIOVASCULAR RISK LESS THAN 150 mg/dL LOW RISK 150 TO 199 mg/dL BORDERLINE RISK 200 mg/dL AND GREATER HIGH RISK Performed By: #### L [id number] #### [facility] ([employer]) [address] [place] [address] Magnesium [Mass/Vol] 30 mg/dL Normal 0-160 [facility] Comment on above: Performed By: #### L [id number] #### [facility] ([employer]) [address] [place] [address] Magnesium [Mass/Vol] 47 mg/dL Normal 23-92 [facility] Comment on above: Performed By: #### L [id number] #### [facility] ([employer]) [address] [place] [address] NON HDL CHOL. (LDL+VLDL) 41 Normal [facility] Comment on above: Performed By: #### L [id number] #### [facility] ([employer] Reviewed) [address] [place] [address] TOTAL VLDL-C 11 mg/dL Normal 0-[address] [facility] Comment on above: Performed By: #### L [id number] #### [facility] ([facility]) [address] [place] [address] Labon 05-19-2023 Lab [id number] Wm Suarez 1950 M Date Provider Department Center 05/19/202351258-OQG DRAW STATION KXT Draw [facility] Family History Problem Relation Age of Onset Diabetes Mother Hypertension Mother Coronary artery disease Mother Other Mother Cystic kidney disease Mother Hypertension Father Skin cancer Father Cystic kidney disease Father Cystic kidney disease Sister Heart disease Brother ALS Brother Cystic kidney disease Brother Family Status - Relation Status Age at Mother Father Sister Brother Normal [facility] MAGNESIUMon 05-19-2023 Magnesium [Mass/Vol] 1.3 mg/dL Low 1.9-2.7 [facility] Comment on above: Performed By: #### L [id number] #### [facility] ([facility]) [address] [place] [address] Orders Onlyon 05-19-2023 Orders Only [id number] Wm Suarez 1950 [facility] Provider Department Center 05/19/2023 1971-LINK SUAREZ TXP None Family History Problem Relation Age of Onset Diabetes Mother Hypertension Mother Coronary artery disease Mother Other Mother Cystic kidney disease Mother Hypertension Father Skin cancer Father Cystic kidney disease Father Cystic kidney disease Sister Heart disease Brother ALS Brother Cystic kidney disease Brother Family Status - Relation Status Age at Mother Father Sister Brother Normal [facility] PHOSPHORUSon 05-19-2023 Magnesium [Mass/Vol] 4.5 mg/dL Normal 2.5-5.0 [facility] Comment on above: Performed By: #### L [id number] #### [facility] ([facility]) [address] [place] [address] TACROLIMUS LEVELon Tacrolimus (Bld) [Mass/Vol] 6.0 ng/mL Normal 5.0-20.0 [facility] Comment on above: Result Comment: The [employer] Tacrolimus assay is a delayed one-step immunoassay for the quantitative determination of tacrolimus in human whole blood using the chemiluminescent microparticle immunoassay (CMIA) technology with flexible assay protocols, referred to as Chemiflex. Performed By: #### L [id number] #### [facility] (GEORGE) [address] [place] [address] TESTOSTERONE, FREE AND TOTAL , AND SHBGon 05-19-2023 SEX HORMONE BINDING GLOBULIN (NMOL/L) IN SER/PLAS 61 nmol/L Normal 11-80 [facility] Comment on above: Performed By: #### L [id number] ####[facility] [employer] [id number] [place] [address] TESTOSTERONE (NG/DL) IN SER/PLAS 440 ng/dL Normal 220-1000 [facility] Comment on above: Performed By: #### L [id number] ####[facility] [id number] [place] [address] TESTOSTERONE FREE (NG/ML) IN SER/PLAS 59.5 pg/mL Normal 47-[address] [facility] Comment on above: Result Comment: The concentration of free testosterone is derived from a mathematical expression based on the constant for the binding of testosterone to albumin and/or sex hormone binding globulin. Test Performed by [employer] [address] [place] [id number] - Released 05/19/2023 15:01 Performed By: #### L [id number] ####[facility] [employer] [id number] [place] [address] URIC ACIDon 05-19-2023 Magnesium [Mass/Vol] 6.2 mg/dL Normal 4.4-7.6 [facility] Comment on above: Performed By: #### L [id number] #### [facility] (GEORGE) [address] [place] [address] Documentationon 05-14-2023 Documentation [id number] Wm Suarez 1950 M Date Provider Department Center 05/14/2023 LAQUITA RAMON None Family History Problem Relation Age of Onset Diabetes Mother Hypertension Mother Coronary artery disease Mother Other Mother Cystic kidney disease Mother Hypertension Father Skin cancer Father Cystic kidney disease Father Cystic kidney disease Sister Heart disease Brother ALS Brother Cystic kidney disease Brother Family Status - Relation Status Age at Mother Father Sister Brother [facility] 30on 04-30-2023 30 Daily Case Managemen t Update Multidisciplinary rounds have been completed. Barriers to Discharge: MR for DC Home to follow up with [employer] on Friday. New Diabetic Supply Scripts have been faxed to his pharmacy in [place], [place]. Diet: Dietary Orders (From admission, onward) Start Ordered 04/29/23 171 Special Kitchen Request Once Comments: Please send a salad with ham, roque, shredded cheddar cheese and onions with pakistani dressing. Layered chocolate cake and a diet cristiano vincenzo. 04/29/23 17104/28/23 185 Regular Diet HF/Cirrhosis/CKD/ESRD (2gm NA); Diabetic Male [...] Consult? Answer: New diagnosis DM2 04/30/23 1109 [facility] 30 Problem: Pain - Adul t [...] and maintained or improved Outcome: Progressing Normal [facility] BASIC METABOLIC PANELon 12-2 Anion gap [Moles/Vol] 12 mmol/L Normal 7-20 [facility] Comment on above: Performed By: #### L [id number] #### [facility] (BEAKER) [address] [place] [address] Calcium [Mass/Vol] 8.7 mg/dL Normal 8.6-10.3 [facility] Comment on above: Performed By: #### L [id number] #### [facility] ([facility]) [address] [place] [address] Chloride [Moles/Vol] 102 mmol/L Normal 98-107 [facility] Comment on above: Performed By: #### L [id number] #### [facility] ([facility]) [address] [place] [address] CO2 [Moles/Vol] 24 mmol/L Normal 21-31 [facility] Comment on above: Performed By: #### L [id number] #### [facility] ([facility]) [address] [place] [address] Creatinine [Mass/Vol] 0.80 mg/dL Normal 0.70-1.30 [facility] Comment on above: Performed By: #### L [id number] #### [facility] ([facility]) [address] [place] [address] GLOMERULAR FILTRATION RATE ML/MIN/1.73 SQ M.PREDICTED 94.6 mL/min/1.73m*2 Normal >60.[address] [facility] Comment on above: Result Comment: [facility]???s estimated glomerular filtration rate (eGFR) will no [...] group of individuals. Performed By: #### L [id number] #### [facility] ([facility]) [address] [place] [address] Glucose [Mass/Vol] 160 mg/dL High 70-100 [facility] Comment on above: Performed By: #### L [id number] #### [facility] ([facility]) [address] [place] [address] Potassium [Moles/Vol] 4.2 mmol/L Normal 3.5-5.1 [facility] Comment on above: Performed By: #### L [id number] #### [facility] ([facility]) [address] [place] [address] Sodium [Moles/Vol] 134 mmol/L Low 136-145 [facility] Comment on above: Performed By: #### L [id number] #### [facility] ([facility]) [address] [place] [address] Urea nitrogen [Mass/Vol] 14 mg/dL Normal 7-25 [facility] Comment on above: Performed By: #### L [id number] #### [facility] ([facility]) [address] [place] [address] UREA NITROGEN/CREATININE (MASS RATIO) IN SER/PLAS 17.5 Normal [facility] Comment on above: Performed By: #### L [id number] #### [facility] ([facility]) [address] [place] [address] CBCon 04-30-2023 Erythrocyte distribution width (RBC) [Ratio] 13.0 % Normal 11.5-15.0 [facility] Comment on above: Performed By: #### L [id number] #### [facility] ([facility]) [address] [place] [address] ERYTHROCYTE MEAN CORPUSCULAR HEMOGLOBIN CONCENTRATION (G/DL) BY AUTOMATED 33.9 g/dL Normal 32.0-35.0 [facility] Comment on above: Performed By: #### L [id number] #### [facility] (BEAKER) [address] [place] [address] Hematocrit (Bld) [Volume fraction] 28.0 % Low 39.0-55.0 [facility] Comment on above: Performed By: #### L [id number] #### [facility] [address] [place] [address] Hemoglobin (Bld) [Mass/Vol] 9.5 g/dL Low 13.0-17.0 [facility] Comment on above: Performed By: #### L [id number] #### [facility] ([facility]) [address] [place] [address] MCH (RBC) [Entitic mass] 29.3 pg Normal 27.0-33.0 [facility] Comment on above: Performed By: #### L [id number] #### [facility] ([facility]) [address] [place] [address] MCV (RBC) [Entitic vol] 86.4 fL Normal 82.0-98.0 [facility] Comment on above: Performed By: #### L [id number] #### [facility] ([facility]) [address] [place] [address] PLATELETS (10*3/UL) IN BLOOD AUTOMATED COUNT 232 10*3/uL Normal 150-400 [facility] Comment on above: Performed By: #### L [id number] #### [facility] ([facility]) [address] [place] [address] RBC (Bld) [#/Vol] 3.24 10*6/uL Low 4.20-5.70 [facility] Comment on above: Performed By: #### L [id number] #### [facility] [address] [place] [address] WBC (Bld) [#/Vol] 5.11 10*3/uL Normal 4.00-10.60 [facility] Comment on above: Performed By: #### L [id number] #### [facility] [address] [place] [address] MAGNESIUMon 04-30-2023 Magnesium [Mass/Vol] 1.2 mg/dL Low 1.9-2.7 [facility] Comment on above: Performed By: #### L [id number] #### [facility] ([facility]) [address] [place] [address] PHOSPHORUSon 04-30-2023 Magnesium [Mass/Vol] 3.3 mg/dL Normal 2.5-5.0 [facility] Comment on above: Performed By: #### L [id number] #### [facility] ([facility]) [address] [place] [address] POCT GLUCOSE METER UNSOLICIT ED RESULTSon 04-30-2023 Glucose [Mass/Vol] 251 mg/dL High 70-105 [facility] Comment on above: Order Comment: Waive d Testing in the ED is performed under the ED CLIA certificate #[id number]. Result Comment: trob [email or web address] Performed By: #### L [id number] #### [facility] ([facility]) [address] [place] [address] Glucose [Mass/Vol] 146 mg/dL High 70-105 [facility] Comment on above: Order Comment: Waive d Testing in the ED is performed under the ED CLIA certificate #[id number]. Result Comment: trob [email or web address] Performed By: #### L [id number] #### [facility] ([facility]) [address] [place] [address] TACROLIMUS LEVELon Tacrolimus (Bld) [Mass/Vol] 6.1 ng/mL Normal 5.0-20.0 [facility] Comment on above: Result Comment: The [employer] Tacrolimus assay is a delayed one-step immunoassay for the quantitative determination of tacrolimus in human whole blood using the chemiluminescent microparticle immunoassay (CMIA) technology with flexible assay protocols, referred to as Chemiflex. Performed By: #### L [id number] #### [facility] ([facility]) [address] [place] [address] 30on 04-29-2023 30 Daily Case Managemen t [...] roque, shredded cheddar cheese and onions with pakistani dressing. Layered chocolate cake and a diet [...] Consultation Consultation and Management 04/27/23 2313 Normal [facility] BASIC METABOLIC PANELon - Anion gap [Moles/Vol] 13 mmol/L Normal 7-20 [facility] Comment on above: Performed By: #### L [id number] #### [facility] (BEAKER) [address] [place] [address] Calcium [Mass/Vol] 8.7 mg/dL Normal 8.6-10.3 [facility] Comment on above: Performed By: #### L [id number] #### [facility] (BEAKER) [address] [place] [address] Chloride [Moles/Vol] 103 mmol/L Normal 98-107 [facility] Comment on above: Performed By: #### L [id number] #### [facility] ([facility]) [address] [place] [address] CO2 [Moles/Vol] 22 mmol/L Normal 21-31 [facility] Comment on above: Performed By: #### L [id number] #### [facility] ([facility]) [address] [place] [address] Creatinine [Mass/Vol] 0.96 mg/dL Normal 0.70-1.30 [facility] Comment on above: Performed By: #### L [id number] #### [facility] ([facility]) [address] [place] [address] GLOMERULAR FILTRATION RATE ML/MIN/1.73 SQ M.PREDICTED 84.5 mL/min/1.73m*2 Normal >60.[address] [facility] Comment on above: Result Comment: [facility]???s estimated glomerular filtration rate (eGFR) will no [...] group of individuals. Performed By: #### L [id number] #### [facility] ([facility]) [address] [place] [address] Glucose [Mass/Vol] 175 mg/dL High 70-100 [facility] Comment on above: Performed By: #### L [id number] #### [facility] ([facility]) [address] [place] [address] Potassium [Moles/Vol] 4.5 mmol/L Normal 3.5-5.1 [facility] Comment on above: Performed By: #### L [id number] #### [facility] (BEAKER) [address] [place] [address] Sodium [Moles/Vol] 133 mmol/L Low 136-145 [facility] Comment on above: Performed By: #### L [id number] #### [facility] (BEAKER) [address] [place] [address] Urea nitrogen [Mass/Vol] 29 mg/dL High 7-25 [facility] Comment on above: Performed By: #### L [id number] #### [facility] (BEAKER) [address] [place] [address] UREA NITROGEN/CREATININE (MASS RATIO) IN SER/PLAS 30.2 Normal [facility] Comment on above: Performed By: #### L [id number] #### [facility] (BEAKER) [address] [place] [address] Anion gap [Moles/Vol] 16 mmol/L Normal 7-20 [facility] Comment on above: Performed By: #### L [id number] #### [facility] ([facility]AKER) [address] [place] [address] Calcium [Mass/Vol] 8.7 mg/dL Normal 8.6-10.3 [facility] Comment on above: Performed By: #### L [id number] #### [facility] (BEAKER) [address] [place] [address] Chloride [Moles/Vol] 102 mmol/L Normal 98-107 [facility] Comment on above: Performed By: #### L [id number] #### [facility] ([facility]AK[facility]) [address] [place] [address] CO2 [Moles/Vol] 19 mmol/L Low 21-31 [facility] Comment on above: Performed By: #### L [id number] #### [facility] (BEAKER) [address] [place] [address] Creatinine [Mass/Vol] 1.02 mg/dL Normal 0.70-1.30 [facility] Comment on above: Performed By: #### L [id number] #### [facility] ([facility]) [address] [place] [address] GLOMERULAR FILTRATION RATE ML/MIN/1.73 SQ M.PREDICTED 78.6 mL/min/1.73m*2 Normal >60.[address] [facility] Comment on above: Result Comment: [facility]???s estimated glomerular filtration rate (eGFR) will no [...] group of individuals. Performed By: #### L [id number] #### [facility] ([facility]) [address] [place] [address] Glucose [Mass/Vol] 206 mg/dL High 70-100 [facility] Comment on above: Performed By: #### L [id number] #### [facility] ([facility]) [address] [place] [address] Potassium [Moles/Vol] 4.8 mmol/L Normal 3.5-5.1 [facility] Comment on above: Performed By: #### L [id number] #### [facility] ([facility]) [address] [place] [address] Sodium [Moles/Vol] 132 mmol/L Low 136-145 [facility] Comment on above: Performed By: #### L [id number] #### [facility] ([facility]) [address] [place] [address] Urea nitrogen [Mass/Vol] 31 mg/dL High 7-25 [facility] Comment on above: Performed By: #### L [id number] #### [facility] ([facility]) [address] [place] [address] UREA NITROGEN/CREATININE (MASS RATIO) IN SER/PLAS 30.4 Normal [facility] Comment on above: Performed By: #### L [id number] #### [facility] ([facility]) [address] [place] [address] POCT GLUCOSE METER UNSOLICIT ED RESULTSon 04-29-2023 Glucose [Mass/Vol] 151 mg/dL High 70-105 [facility] Comment on above: Order Comment: DRAW Q 3 MONTHS MAY, August, November, FEBRUARY Result Comment: dcun dic Performed By: #### L [id number] #### [facility] ([facility]) [address] [place] [address] Glucose [Mass/Vol] 166 mg/dL High 70-105 [facility] Comment on above: Order Comment: DRAW Q 3 MONTHS MAY, August, November, FEBRUARY Result Comment: lzar ate Performed By: #### L [id number] #### [facility] ([facility]) [address] [place] [address] Glucose [Mass/Vol] 147 mg/dL High 70-105 [facility] Comment on above: Order Comment: Waive d Testing in the ED is performed under the ED CLIA certificate #[id number]. Result Comment: [email or web address] Performed By: #### L [id number] #### [facility] ([facility]) [address] [place] [address] Glucose [Mass/Vol] 145 mg/dL High 70-105 [facility] Comment on above: Order Comment: Waive d Testing in the ED is performed under the ED CLIA certificate #[id number]. Result Comment: [email or web address] Performed By: #### L [id number] ####[facility] ([facility])[address] [place] [address] TACROLIMUS LEVELon Tacrolimus (Bld) [Mass/Vol] 8.6 ng/mL Normal 5.0-20.0 [facility] Comment on above: Result Comment: The [employer] Tacrolimus assay is a delayed one-step immunoassay for the quantitative determination of tacrolimus in human whole blood using the chemiluminescent microparticle immunoassay (CMIA) technology with flexible assay protocols, referred to as Chemiflex. Performed By: #### L [id number] #### [facility] ([facility]) [address] [place] [address] APTTon 04-28-2023 ACTIVATED PARTIAL THROMBOPLASTIN TIME IN PPP BY COAGULATION ASSAY 26.1 Seconds Normal 25.0-35.0 [facility] Comment on above: Result Comment: Clin ical significance of the APTT is questionable in the presence of heparin. Performed By: #### L [id number] ####[facility] ([facility])[address] [place] [address] B-TYPE NATRIURETIC PEPTIDEon 04-28-2023 Natriuretic peptide B (Bld) [Mass/Vol] 98 pg/mL Normal 0-100 [facility] Comment on above: Performed By: #### L [id number] ####[facility] ([facility])[address] [place] [address] BASIC METABOLIC PANELon 04-11 Anion gap [Moles/Vol] 17 mmol/L Normal 7-20 [facility] Comment on above: Performed By: #### L [id number] #### [facility] ([facility]) [address] [place] [address] Calcium [Mass/Vol] 8.6 mg/dL Normal 8.6-10.3 [facility] Comment on above: Performed By: #### L [id number] #### [facility] ([facility]) [address] [place] [address] Chloride [Moles/Vol] 102 mmol/L Normal 98-107 [facility] Comment on above: Performed By: #### L [id number] #### [facility] ([facility]) [address] [place] [address] CO2 [Moles/Vol] 20 mmol/L Low 21-31 [facility] Comment on above: Performed By: #### L [id number] #### [facility] ([facility]) [address] [place] [address] Creatinine [Mass/Vol] 1.07 mg/dL Normal 0.70-1.30 [facility] Comment on above: Performed By: #### L [id number] #### [facility] ([facility]) [address] [place] [address] GLOMERULAR FILTRATION RATE ML/MIN/1.73 SQ M.PREDICTED 74.2 mL/min/1.73m*2 Normal >60.[address] [facility] Comment on above: Result Comment: [facility]???s estimated glomerular filtration rate (eGFR) will no [...] group of individuals. Performed By: #### L [id number] #### [facility] ([facility]) [address] [place] [address] Glucose [Mass/Vol] 144 mg/dL High 70-100 [facility] Comment on above: Performed By: #### L [id number] #### [facility] ([facility]) [address] [place] [address] Potassium [Moles/Vol] 4.7 mmol/L Normal 3.5-5.1 [facility] Comment on above: Performed By: #### L [id number] #### [facility] ([facility]) [address] [place] [address] Sodium [Moles/Vol] 134 mmol/L Low 136-145 [facility] Comment on above: Performed By: #### L [id number] #### [facility] ([facility]) [address] [facility] [place] [address] Urea nitrogen [Mass/Vol] 34 mg/dL High 7-25 [facility] Comment on above: Performed By: #### L [id number] #### [facility] (BEAKER) [address] [place] [address] UREA NITROGEN/CREATININE (MASS RATIO) IN SER/PLAS 31.8 Normal [facility] Comment on above: Performed By: #### L [id number] #### [facility] [address] [place] [address] Anion gap [Moles/Vol] 17 mmol/L Normal 7-20 [facility] Comment on above: Performed By: #### L [id number] ####[facility] [place] [address] Calcium [Mass/Vol] 8.7 mg/dL Normal 8.6-10.3 [facility] Comment on above: Performed By: #### L [id number] ####[facility] [place] [address] Chloride [Moles/Vol] 100 mmol/L Normal 98-107 [facility] Comment on above: Performed By: #### L [id number] ####[facility] [place] [address] CO2 [Moles/Vol] 19 mmol/L Low 21-31 [facility] Comment on above: Performed By: #### L [id number] ####[facility] (BEAKER)[address] [place] [address] Creatinine [Mass/Vol] 1.20 mg/dL Normal 0.70-1.30 [facility] Comment on above: Performed By: #### L [id number] ####[facility] [place] [address] GLOMERULAR FILTRATION RATE ML/MIN/1.73 SQ M.PREDICTED 64.7 mL/min/1.73m*2 Normal >60.[address] [facility] Comment on above: Result Comment: [facility]???s estimated glomerular filtration rate (eGFR) will no [...] of individuals. Performed By: #### L [id number] ####[facility] ([facility])[address] [place] [address] Glucose [Mass/Vol] 237 mg/dL High 70-100 [facility] Comment on above: Performed By: #### L [id number] ####[facility] ([facility])[address] [place] [address] Potassium [Moles/Vol] 4.4 mmol/L Normal 3.5-5.1 [facility] Comment on above: Performed By: #### L [id number] ####[facility] ([facility])[address] [place] [address] Sodium [Moles/Vol] 132 mmol/L Low 136-145 [facility] Comment on above: Performed By: #### L [id number] ####[facility] (BEAKER)[address] [place] [address] Urea nitrogen [Mass/Vol] 40 mg/dL High 7-25 [facility] Comment on above: Performed By: #### L [id number] ####[facility] [place] [address] UREA NITROGEN/CREATININE (MASS RATIO) IN SER/PLAS 33.3 Normal [facility] Comment on above: Performed By: #### L [id number] ####[facility] ([facility])[address] [place] [address] Anion gap [Moles/Vol] 20 mmol/L Normal 7-20 [facility] Comment on above: Performed By: #### L [id number] ####[facility] ([facility])[address] [place] [address] Calcium [Mass/Vol] 8.6 mg/dL Normal 8.6-10.3 [facility] Comment on above: Performed By: #### L [id number] ####[facility] ([facility])[address] [place] [address] Chloride [Moles/Vol] 101 mmol/L Normal 98-107 [facility] Comment on above: Performed By: #### L [id number] ####[facility] ([facility])[address] [place] [address] CO2 [Moles/Vol] 14 mmol/L Invalid Interpretation Code [facility] Comment on above: Performed By: #### L [id number] ####[facility] ([facility])[address] [place] [address] Creatinine [Mass/Vol] 1.32 mg/dL High 0.70-1.30 [facility] Comment on above: Performed By: #### L [id number] ####[facility] ([facility])[address] [place] [address] GLOMERULAR FILTRATION RATE ML/MIN/1.73 SQ M.PREDICTED 57.7 mL/min/1.73m*2 Low >60.[address] [facility] Comment on above: Result Comment: [facility]???s estimated glomerular filtration rate (eGFR) will no [...] of individuals. Performed By: #### L [id number] ####[facility] ([facility])[address] [place] [address] Glucose [Mass/Vol] 332 mg/dL High 70-100 [facility] Comment on above: Performed By: #### L [id number] ####[facility] (BEAKER)[address] [place] [address] Potassium [Moles/Vol] 4.6 mmol/L Normal 3.5-5.1 [facility] Comment on above: Performed By: #### L [id number] ####[facility] (BEAKER)[address] [place] [address] Sodium [Moles/Vol] 130 mmol/L Low 136-145 [facility] Comment on above: Performed By: #### L [id number] ####[facility] (BEAKER)[address] [place] [address] Urea nitrogen [Mass/Vol] 43 mg/dL High 7-25 [facility] Comment on above: Performed By: #### L [id number] ####[facility] (BEAKER)[address] [place] [address] UREA NITROGEN/CREATININE (MASS RATIO) IN SER/PLAS 32.6 Normal [facility] Comment on above: Performed By: #### L [id number] ####[facility] (BEAKER)[address] [place] [address] Anion gap [Moles/Vol] 22 mmol/L High 7-20 [facility] Comment on above: Performed By: #### L [id number] #### [facility] (BEAKER) [address] [place] [address] Calcium [Mass/Vol] 8.9 mg/dL Normal 8.6-10.3 [facility] Comment on above: Performed By: #### L [id number] #### [facility] (BEAKER) [address] [place] [address] Chloride [Moles/Vol] 99 mmol/L Normal 98-107 [facility] Comment on above: Performed By: #### L [id number] #### [facility] (BEAKER) [address] [place] [address] CO2 [Moles/Vol] 13 mmol/L Invalid Interpretation Code 21-31 [facility] Comment on above: Performed By: #### L [id number] #### [facility] ([facility]) [address] [facility] [place] [address] Creatinine [Mass/Vol] 1.33 mg/dL High 0.70-1.30 [facility] Comment on above: Performed By: #### L [id number] #### [facility] ([facility]) [address] [place] [address] GLOMERULAR FILTRATION RATE ML/MIN/1.73 SQ M.PREDICTED 57.1 mL/min/1.73m*2 Low >60.[address] [facility] Comment on above: Result Comment: [facility]???s estimated glomerular filtration rate (eGFR) will no [...] group of individuals. Performed By: #### L [id number] #### [facility] ([facility]) [address] [place] [address] Glucose [Mass/Vol] 324 mg/dL High 70-100 [facility] Comment on above: Performed By: #### L [id number] #### [facility] ([facility]) [address] [place] [address] Potassium [Moles/Vol] 5.7 mmol/L High 3.5-5.1 [facility] Comment on above: Performed By: #### L [id number] #### [facility] ([facility]) [address] [place] [address] Sodium [Moles/Vol] 128 mmol/L Low 136-145 [facility] Comment on above: Performed By: #### L [id number] #### [facility] [address] [place] [address] Urea nitrogen [Mass/Vol] 45 mg/dL High 7-25 [facility] Comment on above: Performed By: #### L [id number] #### [facility] (BEAKER) [address] [place] [address] UREA NITROGEN/CREATININE (MASS RATIO) IN SER/PLAS 33.8 Normal [facility] Comment on above: Performed By: #### L [id number] #### [facility] [address] [place] [address] Anion gap [Moles/Vol] 23 mmol/L High 7-20 [facility] Comment on above: Performed By: #### L [id number] ####[facility] ([facility])[address] [place] [address] Calcium [Mass/Vol] 8.8 mg/dL Normal 8.6-10.3 [facility] Comment on above: Performed By: #### L [id number] ####[facility] [place] [address] Chloride [Moles/Vol] 99 mmol/L Normal 98-107 [facility] Comment on above: Performed By: #### L [id number] ####[facility] [place] [address] CO2 [Moles/Vol] 13 mmol/L Invalid Interpretation Code [facility] Comment on above: Performed By: #### L [id number] ####[facility] [place] [address] Creatinine [Mass/Vol] 1.31 mg/dL High 0.70-1.30 [facility] Comment on above: Performed By: #### L [id number] ####[facility] (BEAKER)[address] [place] [address] GLOMERULAR FILTRATION RATE ML/MIN/1.73 SQ M.PREDICTED 58.2 mL/min/1.73m*2 Low >60.[address] [facility] Comment on above: Result Comment: [facility]???s estimated glomerular filtration rate (eGFR) will no [...] of individuals. Performed By: #### L [id number] ####[facility] (BEAKER)[address] [place] [address] Glucose [Mass/Vol] 264 mg/dL High 70-100 [facility] Comment on above: Performed By: #### L [id number] ####[facility] (BEAKER)[address] [place] [address] Potassium [Moles/Vol] 5.7 mmol/L High 3.5-5.1 [facility] Comment on above: Performed By: #### L [id number] ####[facility] (BEAKER)[address] [place] [address] Sodium [Moles/Vol] 129 mmol/L Low 136-145 [facility] Comment on above: Performed By: #### L [id number] ####[facility] (BEAKER)[address] [place] [address] Urea nitrogen [Mass/Vol] 44 mg/dL High 7-25 [facility] Comment on above: Performed By: #### L [id number] ####[facility] (BEAKER)[address] [place] [address] UREA NITROGEN/CREATININE (MASS RATIO) IN SER/PLAS 33.6 Normal [facility] Comment on above: Performed By: #### L [id number] ####[facility] (BEAKER)[address] [place] [address] BETA HYDROXYBUTYRATEon 04-28 BETA HYDROXYBUTYRATE (MMOL/L) IN SER/PLAS 6.22 mmol/L High 0.02-0.27 [facility] Comment on above: Performed By: #### L [id number] #### [facility] ([facility]) [address] [place] [address] BLOOD CULTUREon 04-28-2023 Bacteria identified Cx Nom (Bld) No growth at [address] [facility] Comment on above: Performed By: #### L [id number] ####[facility] ([facility])[address] [place] [address] Bacteria identified Cx Nom (Bld) No growth at 5 days Normal [facility] Comment on above: Order Comment: From a different site than #1. Performed By: #### L [id number] #### [facility] ([facility]) [address] [place] [address] Bacteria identified Cx Nom (Bld) No growth at 5 days Normal [facility] Comment on above: Order Comment: From a different site than #1. Performed By: #### L [id number] #### [facility] ([facility]) [address] [place] [address] CBC WITH AUTO DIFFERENTIALon 04-28-2023 Basophils (Bld) [#/Vol] 0.04 10*3/uL Normal 0.00-0.20 [facility] Comment on above: Performed By: #### L [id number] #### [facility] ([facility]) [address] [place] [address] Basophils/100 WBC (Bld) 0.4 % Normal 0.0-1.0 [facility] Comment on above: Performed By: #### L [id number] #### [facility] ([facility]) [address] [place] [address] Eosinophils (Bld) [#/Vol] 0.09 10*3/uL Normal 0.00-0.50 [facility] Comment on above: Performed By: #### L [id number] #### [facility] ([facility]) [address] [place] [address] Eosinophils/100 WBC (Bld) 1.0 % Normal 0.0-6.0 [facility] Comment on above: Performed By: #### L [id number] #### [facility] ([facility]) [address] [place] [address] Erythrocyte distribution width (RBC) [Ratio] 13.1 % Normal 11.5-15.0 [facility] Comment on above: Performed By: #### L [id number] #### [facility] ([facility]) [address] [place] [address] ERYTHROCYTE MEAN CORPUSCULAR HEMOGLOBIN CONCENTRATION (G/DL) BY AUTOMATED 33.9 g/dL Normal 32.0-35.0 [facility] Comment on above: Performed By: #### L [id number] #### [facility] ([facility]) [address] [place] [address] Hematocrit (Bld) [Volume fraction] 32.7 % Low 39.0-55.0 [facility] Comment on above: Performed By: #### L [id number] #### [facility] ([facility]) [address] [place] [address] Hemoglobin (Bld) [Mass/Vol] 11.1 g/dL Low 13.0-17.0 [facility] Comment on above: Performed By: #### L [id number] #### [facility] ([facility]) [address] [place] [address] Immature granulocytes (Bld) [#/Vol] 0.15 10*3/uL Normal 0.00-0.20 [facility] Comment on above: Performed By: #### L [id number] #### [facility] (BEAKER) [address] [place] [address] Immature granulocytes/100 WBC (Bld) 1.6 % High 0.0-1.0 [facility] Comment on above: Performed By: #### L [id number] #### [facility] (BEAKER) [address] [place] [address] Lymphocytes (Bld) [#/Vol] 1.04 10*3/uL Low 1.20-4.00 [facility] Comment on above: Performed By: #### L [id number] #### [facility] ([facility]) [address] [place] [address] Lymphocytes/100 WBC (Bld) 11.3 % Low 20.0-45.0 [facility] Comment on above: Performed By: #### L [id number] #### [facility] ([facility]) [address] [place] [address] MCH (RBC) [Entitic mass] 29.3 pg Normal 27.0-33.0 [facility] Comment on above: Performed By: #### L [id number] #### [facility] ([facility]) [address] [place] [address] MCV (RBC) [Entitic vol] 86.3 fL Normal 82.0-98.0 [facility] Comment on above: Performed By: #### L [id number] #### [facility] ([facility]) [address] [place] [address] Monocytes (Bld) [#/Vol] 0.96 10*3/uL Normal 0.10-1.00 [facility] Comment on above: Performed By: #### L [id number] #### [facility] ([facility]) [address] [place] [address] Monocytes/100 WBC (Bld) 10.5 % Normal 5.0-12.0 [facility] Comment on above: Performed By: #### L [id number] #### [facility] ([facility]) [address] [place] [address] Neutrophils (Bld) [#/Vol] 6.90 10*3/uL Normal 1.60-7.60 [facility] Comment on above: Performed By: #### L [id number] #### [facility] [address] [place] [address] Neutrophils/100 WBC (Bld) 75.2 % High 40.0-72.0 [facility] Comment on above: Performed By: #### L [id number] #### [facility] ([facility]) [address] [place] [address] NRBC (PER 100 WBCS) BY AUTOMATED COUNT 0.0 % Normal 0 [facility] Comment on above: Performed By: #### L [id number] #### [facility] ([facility]) [address] [place] [address] PLATELETS (10*3/UL) IN BLOOD AUTOMATED COUNT 301 10*3/uL Normal 150-400 [facility] Comment on above: Performed By: #### L [id number] #### [facility] ([facility]) [address] [place] [address] RBC (Bld) [#/Vol] 3.79 10*6/uL Low 4.20-5.70 [facility] Comment on above: Performed By: #### L [id number] #### [facility] ([facility]) [address] [place] [address] WBC (Bld) [#/Vol] 9.18 10*3/uL Normal 4.00-10.60 [facility] Comment on above: Performed By: #### L [id number] #### [facility] ([facility]) [address] [place] [address] CMV DNA, QUALITATIVE, PCRon 04-28-2023 CYTOMEGALOVIRUS QUAL. PCR Not detected Normal [facility] Comment on above: Result Comment: NOT DETECTED - A negative result does not rule out the presence of PCR inhibitors in the patient specimen or assay specific nucleic acid in concentrations below the level of detection by the assay. INTERPRETIVE INFORMATION: Cytomegalovirus Detection by PCR This test was developed and its performance characteristics determined by [facility]. It has not been cleared or approved by the [place] Food and Drug Administration. This test was performed in a CLIA certified laboratory and is intended for clinical purposes. Performed By: [facility] [address] [place] [address] Commissary Representative: René Wick MD, PhD CLIA Number: [id number] Performed By: #### L [id number] #### [facility] ([facility]) [address] [place] [address] CYTOMEGALOVIRUS SOURCE Blood Normal [facility] Comment on above: Performed By: #### L [id number] #### [facility] ([facility]) [address] [place] [address] COMPREHENSIVE METABOLIC PANE Claudio 04-28-2023 Albumin [Mass/Vol] 3.8 g/dL Normal 3.5-5.7 [facility] Comment on above: Performed By: #### L [id number] #### [facility] [address] [place] [address] ALP [Catalytic activity/Vol] 100 U/L Normal 34-104 [facility] Comment on above: Performed By: #### L [id number] #### [facility] [address] [place] [address] ALT [Catalytic activity/Vol] 12 U/L Normal 7-52 [facility] Comment on above: Performed By: #### L [id number] #### [facility] [address] [place] [address] Anion gap [Moles/Vol] 15 mmol/L Normal 7-20 [facility] Comment on above: Performed By: #### L [id number] #### [facility] [address] [place] [address] Performed By: #### L [id number] ####[facility] ([facility])[address] [place] [address] AST [Catalytic activity/Vol] 12 U/L Low 13-39 [facility] Comment on above: Performed By: #### L [id number] #### [facility] [address] [place] [address] Bilirubin [Mass/Vol] 0.4 mg/dL Normal 0.3-1.0 [facility] Comment on above: Performed By: #### L [id number] #### [facility] ([facility]) [address] [place] [address] Calcium [Mass/Vol] 8.6 mg/dL Normal 8.6-10.3 [facility] Comment on above: Performed By: #### L [id number] #### [facility] ([facility]) [address] [place] [address] Performed By: #### L [id number] ####[facility] ([facility])[address] [place] [address] Chloride [Moles/Vol] 101 mmol/L Normal 98-107 [facility] Comment on above: Performed By: #### L [id number] #### [facility] ([facility]) [address] [place] [address] Performed By: #### L [id number] ####[facility] [place] [address] CO2 [Moles/Vol] 18 mmol/L Low 21-31 [facility] Comment on above: Performed By: #### L [id number] #### [facility] ([facility]) [address] [place] [address] Performed By: #### L [id number] ####[facility] ([facility])[address] [place] [address] Creatinine [Mass/Vol] 1.36 mg/dL High 0.70-1.30 [facility] Comment on above: Performed By: #### L [id number] #### [facility] ([facility]) [address] [place] [address] Performed By: #### L [id number] ####[facility] ([facility])[address] [place] [address] GLOMERULAR FILTRATION RATE ML/MIN/1.73 SQ M.PREDICTED 55.6 mL/min/1.73m*2 Low >60.[address] [facility] Comment on above: Result Comment: The [facility]???s estimated glomerular filtration rate (eGFR) will no [...] individuals. Performed By: #### L [id number] #### [facility] ([facility]) [address] [place] [address] Performed By: #### L [id number] ####[facility] ([facility])[address] [place] [address] Glucose [Mass/Vol] 149 mg/dL High 70-100 [facility] Comment on above: Performed By: #### L [id number] #### [facility] ([facility]) [address] [place] [address] Performed By: #### L [id number] ####[facility] ([facility])[address] [place] [address] Potassium [Moles/Vol] 4.8 mmol/L Normal 3.5-5.1 [facility] Comment on above: Performed By: #### L [id number] #### [facility] ([facility]) [address] [place] [address] Performed By: #### L [id number] ####[facility] ([facility])[address] [place] [address] Protein [Mass/Vol] 6.0 g/dL Normal 6.0-8.3 [facility] Comment on above: Performed By: #### L [id number] #### [facility] ([facility]) [address] [place] [address] Sodium [Moles/Vol] 129 mmol/L Low 136-145 [facility] Comment on above: Performed By: #### L [id number] #### [facility] ([facility]) [address] [place] [address] Performed By: #### L [id number] ####[facility] ([facility])[address] [place] [address] Urea nitrogen [Mass/Vol] 45 mg/dL High 7-25 [facility] Comment on above: Performed By: #### L [id number] #### [facility] ([facility]) [address] [place] [address] Performed By: #### L [id number] ####[facility] ([facility])[address] [place] [address] UREA NITROGEN/CREATININE (MASS RATIO) IN SER/PLAS 33.1 Normal [facility] Comment on above: Performed By: #### L [id number] #### [facility] ([facility]) [address] [place] [address] Performed By: #### L [id number] ####[facility] ([facility])[address] [place] [address] CONSULTon 04-28-2023 CONSULT - Attestation signed by [...] as a transfer from outside hospital in [place] for concerns of possible DKA, hyponatremia, and [...] nursing note reviewed. Exam conducted with a leather lacer present (Dr. Pan). Constitutional: General: He is [...] No ed (more content not included)... Normal [facility] CREATININE, URINE, RANDOMon 04-28-2023 Creatinine (U) [Mass/Vol] 100.0 mg/dL Normal 26-299 [facility] Comment on above: Performed By: #### L [id number] #### [facility] ([facility]) [address] [place] [address] HEMOGLOBIN A1Con 04-28-2023 Glucose [Mass/Vol] 372 mg/dL Normal [facility] Comment on above: Order Comment: NO VA RIANT Performed By: #### L [id number] #### [facility] ([facility]) [address] [place] [address] HbA1c (Bld) [Mass fraction] 14.6 % High 4.0-6.0 [facility] Comment on above: Order Comment: NO VA RIANT Performed By: #### L [id number] #### [facility] ([facility]) [address] [place] [address] LACTIC ACID WITH 4 HOUR REFL EXon 04-28-2023 LACTATE (MMOL/L) IN SER/PLAS 0.8 mmol/L Normal 0.5-2.2 [facility] Comment on above: Performed By: #### L [id number] #### [facility] ([facility]) [address] [place] [address] MAGNESIUMon 04-28-2023 Magnesium [Mass/Vol] 1.7 mg/dL Low 1.9-2.7 [facility] Comment on above: Performed By: #### L [id number] ####[facility] ([facility])[address] [place] [address] NURSNOTEon 04-28-[address] Nguyen ( nephrology) regarding placing powerglide if pt a candidate, ok with placement on right arm. Normal [facility] OSMOLALITYon 04-28-2023 OSMOLALITY MEASURED 310 mOsm/kg High 275-295 [facility] Comment on above: Result Comment: Test Performed by [employer] [address] [place] [address] - Released 04/28/2023 22:42 Performed By: #### L [id number] #### [facility] ([facility]) [address] [place] [address] OSMOLALITY, URINEon 04-28-20 23 OSMOLALITY, URINE 446 mOsm/kg Normal 80-1300 [facility] Comment on above: Result Comment: Test Performed by [employer] [address] [place] [address] - Released 04/29/2023 03:35 Performed By: #### L [id number] #### [facility] ([facility]) [address] [place] [address] PHOSPHORUSon 04-28-2023 Magnesium [Mass/Vol] 3.7 mg/dL Normal 2.5-5.0 [facility] Comment on above: Performed By: #### L [id number] ####[facility] ([facility])[address] [place] [address] POCT GLUCOSE METER UNSOLICIT ED RESULTSon 04-28-2023 Glucose [Mass/Vol] 141 mg/dL High 70-105 [facility] Comment on above: Order Comment: DRAW Q 3 MONTHS MAY, August, November, FEBRUARY Result Comment: ladarius benoit Performed By: #### L [id number] #### [facility] ([facility]) [address] [place] [address] Glucose [Mass/Vol] 99 mg/dL Normal 70-105 [facility] Comment on above: Order Comment: DRAW Q 3 MONTHS MAY, August, November, FEBRUARY Result Comment: besc obe Performed By: #### L [id number] #### [facility] [address] [place] [address] Glucose [Mass/Vol] 115 mg/dL High 70-105 [facility] Comment on above: Order Comment: Waive d Testing in the ED is performed under the ED CLIA certificate #[id number]. Result Comment: besc obe Performed By: #### L [id number] #### [facility] ([facility]) [address] [place] [address] Glucose [Mass/Vol] 145 mg/dL High 70-105 [facility] Comment on above: Order Comment: Waive d Testing in the ED is performed under the ED CLIA certificate #[id number]. Result Comment: wwar rad Performed By: #### L [id number] #### [facility] ([facility]) [address] [place] [address] Glucose [Mass/Vol] 165 mg/dL High 70-105 [facility] Comment on above: Order Comment: Waive d Testing in the ED is performed under the ED CLIA certificate #[id number]. Result Comment: besc obe Performed By: #### L [id number] #### [facility] ([facility]) [address] [place] [address] Glucose [Mass/Vol] 203 mg/dL High 70-105 [facility] Comment on above: Order Comment: Waive d Testing in the ED is performed under the ED CLIA certificate #[id number]. Result Comment: [email or web address] Performed By: #### L [id number] #### [facility] ([facility]) [address] [place] [address] Glucose [Mass/Vol] 247 mg/dL High 70-105 [facility] Comment on above: Order Comment: Waive d Testing in the ED is performed under the ED CLIA certificate #[id number]. Result Comment: wwar rad Performed By: #### L [id number] #### [facility] ([facility]) [address] [place] [address] Glucose [Mass/Vol] 315 mg/dL High 70-105 [facility] Comment on above: Order Comment: Waive d Testing in the ED is performed under the ED CLIA certificate #[id number]. Result Comment: wwar rad Performed By: #### L [id number] ####[facility] ([facility])[address] [place] [address] Glucose [Mass/Vol] 356 mg/dL High 70-105 [facility] Comment on above: Order Comment: Waive d Testing in the ED is performed under the ED CLIA certificate #[id number]. Result Comment: abrosa rbo Performed By: #### L [id number] #### [facility] ([facility]) [address] [place] [address] Glucose [Mass/Vol] 312 mg/dL High 70-105 [facility] Comment on above: Order Comment: Waive d Testing in the ED is performed under the ED CLIA certificate #[id number]. Result Comment: kirsty rad Performed By: #### L [id number] #### [facility] ([facility]) [address] [place] [address] Glucose [Mass/Vol] 139 mg/dL High 70-105 [facility] Comment on above: Order Comment: Waive d Testing in the ED is performed under the ED CLIA certificate #[id number]. Result Comment: acle jordin Performed By: #### L [id number] #### [facility] ([facility]) [address] [place] [address] PROTEIN, URINE, RANDOMon Protein (U) [Mass/Vol] 47.2 mg/dL Normal [facility] Comment on above: Result Comment: Ther e are no established reference values for random urine specimens. Performed By: #### L [id number] ####[facility] ([facility])[address] [place] [address] PROTIME-INRon 04-28-2023 INR IN PPP BY COAGULATION ASSAY 1.13 High 0.90-1.10 [facility] Comment on above: Result Comment: ACCC P [...] 1995;[id number]. Performed By: #### L [id number] #### [facility] ([facility]) [address] [place] [address] PROTHROMBIN TIME (PT) IN PPP BY COAGULATION ASSAY 14.5 Seconds Normal 12.3-14.8 [facility] Comment on above: Performed By: #### L [id number] #### [facility] ([facility]) [address] [place] [address] PTH, INTACTon 04-28-2023 PARATHYRIN INTACT (PG/ML) IN SER/PLAS 48 pg/mL Normal [facility] Comment on above: Performed By: #### L [id number] #### [facility] ([facility]) [address] [place] [address] SODIUM, URINE, RANDOMon 04-11 Sodium (U) [Moles/Vol] 35 mmol/L Normal [facility] Comment on above: Performed By: #### L [id number] #### [facility] ([facility]) [address] [place] [address] TACROLIMUS LEVELon Tacrolimus (Bld) [Mass/Vol] 11.6 ng/mL Normal 5.0-20.0 [facility] Comment on above: Result Comment: The [employer]ATOR Tacrolimus assay is a delayed one-step immunoassay for the quantitative determination of tacrolimus in human whole blood using the chemiluminescent microparticle immunoassay (CMIA) technology with flexible assay protocols, referred to as Chemiflex. Performed By: #### L [id number] #### [facility] ([facility]) [address] [place] [address] TROPONIN Ion 04-28-2023 Troponin I.cardiac [Mass/Vol] 0.02 ng/mL Normal 0.00-0.04 [facility] Comment on above: Performed By: #### L [id number] ####[facility] ([facility])[address] [place] [address] Troponin I.cardiac [Mass/Vol] 0.02 ng/mL Normal 0.00-0.04 [facility] Comment on above: Performed By: #### L [id number] ####[facility] ([facility])[address] [place] [address] Troponin I.cardiac [Mass/Vol] 0.04 ng/mL Normal 0.00-0.04 [facility] Comment on above: Performed By: #### L [id number] ####[facility] ([facility])[address] [place] [address] URINALYSIS MICROSCOPIC WITH REFLEX CULTUREon 04-28-2023 CASTS IN URINE Normal [facility] Comment on above: Performed By: #### L [id number] #### [facility] ([facility]) [address] [place] [address] CRYSTALS IN URINE Normal [facility] Comment on above: Performed By: #### L [id number] #### [facility] ([facility]) [address] [place] [address] OTHER MICROSCOPIC ELEMENTS Normal [facility] Comment on above: Performed By: #### L [id number] #### [facility] ([facility]) [address] [place] [address] RBC (#/HPF) IN URINE SEDIMENT 21-50 Abnormal None Seen [facility] Comment on above: Performed By: #### L [id number] #### [facility] ([facility]) [address] [place] [address] SQUAMOUS EPITHELIAL CELLS (#/HPF) IN URINE SEDIMENT Occasional Normal None Seen, Occasional [facility] Comment on above: Performed By: #### L [id number] #### [facility] ([facility]) [address] [place] [address] WBC (LEUKOCYTE) (#/HPF) IN URINE SEDIMENT 6-10 Abnormal None Seen [facility] Comment on above: Performed By: #### L [id number] #### [facility] ([facility]) [address] [place] [address] URINALYSIS WITH REFLEX CULTU REon 04-28-2023 BILIRUBIN, TOTAL PRESENCE IN URINE Negative Normal Negative [facility] Comment on above: Performed By: #### L [id number] ####[facility] ([facility])[address] [place] [address] Clarity (U) Clear Normal Clear [facility] Comment on above: Performed By: #### L [id number] ####[facility] ([facility])[address] [place] [address] Color (U) Yellow Normal Yellow [facility] Comment on above: Performed By: #### L [id number] ####[facility] ([facility])[address] [place] [address] Glucose (U) [Mass/Vol] Negative Normal Negative [facility] Comment on above: Performed By: #### L [id number] ####[facility] ([facility])[address] [place] [address] HEMOGLOBIN PRESENCE IN URINE Moderate Abnormal Negative [facility] Comment on above: Performed By: #### L [id number] ####[facility] ([facility])[address] [place] [address] Ketones Ql (U) 20 mg/dL Abnormal Negative [facility] Comment on above: Performed By: #### L [id number] ####[facility] ([facility])[address] [place] [address] LEUKOCYTE ESTERASE PRESENCE IN URINE BY TEST STRIP Trace Abnormal Negative [facility] Comment on above: Performed By: #### L [id number] ####[facility] ([facility])[address] [place] [address] NITRITE PRESENCE IN URINE Negative Normal Negative [facility] Comment on above: Performed By: #### L [id number] ####[facility] ([facility])[address] [place] [address] pH (U) 5.0 [pH] Normal 5.0-8.0 [facility] Comment on above: Performed By: #### L [id number] ####[facility] ([facility])[address] [place] [address] Protein (U) [Mass/Vol] 30 mg/dL Abnormal Negative [facility] Comment on above: Performed By: #### L [id number] ####[facility] ([facility])[address] [place] [address] Specific gravity (U) [Rel density] 1.015 Normal 1.015-1.020 [facility] Comment on above: Performed By: #### L [id number] ####[facility] ([facility])[address] [place] [address] Office Visiton 04-22-2023 Follow-up visit [id number] Wm Suarez 1950 M Date Provider Department Center 04/22/2023 BENJA FIGUEROA ENRIQUE [place] Family History Problem Relation Age of Onset Diabetes Mother Hypertension Mother Coronary artery disease Mother Other Mother Cystic kidney disease Mother Hypertension Father Skin cancer Father Cystic kidney disease Father Cystic kidney disease Sister Heart disease Brother ALS Brother Cystic kidney disease Brother Family Status - Relation Status Age at Mother Father Sister Brother Level of Service:40627 MA OFFICE/OUTPATIENT ESTABLISHED LOW MDM 20-29 MIN Normal [facility] Documentationon 04-07-2023 Documentation [id number] Wm Suarez 1950 M Date Provider Department [...] Age at Mother Father Sister Brother Normal [facility] Orders Onlyon 04-02-2023 Orders Only [id number] Wm Suarez 1950 M Date Provider Department [...] Age at Mother Father Sister Brother Normal [facility] 29on 11-11-2022 29 Addended by: DI GALLO on: 11/11/2022 12:52 PM Modules accepted: Orders Normal [facility] BILIRUBIN, DIRECTon 11-12-19 23 Magnesium [Mass/Vol] 0.1 mg/dL Normal 0-0.2 [facility] Comment on above: Performed By: #### L [id number] #### [facility] ([facility]) [address] [place] [address] BK VIRUS, PLASMA, QUANTITATI VEon 11-11-2022 BK QUANTITATION Not detected Normal Not Detected [facility] Comment on above: Order Comment: DRAW Q 3 MONTHS MAY, August, November, FEBRUARY Result Comment: Meth od: BK virus was measured by quantitative polymerase chain reaction using a fluorescent hydrolysis probe targeting the polyomavirus BK PATIENT COORDINATOR-1 gene. The lower limit of quantitation of the assay is 500 copies of BK genome per milliliter of plasma or urine, and any detectable BK DNA below that level is reported as: Detected, <500 copies/ml. Serial BK virus measurement can be used to monitor disease activity. (Reference: Katina ramirezl. J CLIN MICRO 2004; 42:0216-8541). This test was developed and its performance characteristics determined by the [facility]. It has not been approved by the [place] Food and Drug Administration. However, such approval is not required for clinical implementation, and test results have been shown to be clinically useful. This laboratory is CAP accredited and CLIA certified to perform high complexity testing. Performed By: #### L [id number] #### [facility] ([facility]) [address] [place] [address] BK QUANTITATION LOG Not detected Normal Not Detected [facility] Comment on above: Order Comment: DRAW Q 3 MONTHS MAY, August, November, FEBRUARY Performed By: #### L [id number] #### [facility] ([facility]) [address] [place] [address] CBC WITH AUTO DIFFERENTIALon 11-11-2022 Basophils (Bld) [#/Vol] 0.02 10*3/uL Normal 0.00-0.20 [facility] Comment on above: Performed By: #### L [id number] #### [facility] ([facility]) [address] [place] [address] Basophils/100 WBC (Bld) 0.3 % Normal 0.0-1.0 [facility] Comment on above: Performed By: #### L [id number] #### [facility] ([facility]) [address] [place] [address] Eosinophils (Bld) [#/Vol] 0.09 10*3/uL Normal 0.00-0.50 [facility] Comment on above: Performed By: #### L [id number] #### [facility] ([facility]) [address] [place] [address] Eosinophils/100 WBC (Bld) 1.5 % Normal 0.0-6.0 [facility] Comment on above: Performed By: #### L [id number] #### [facility] ([facility]) [address] [place] [address] Erythrocyte distribution width (RBC) [Ratio] 13.2 % Normal 11.5-15.0 [facility] Comment on above: Performed By: #### L [id number] #### [facility] [address] [place] [address] ERYTHROCYTE MEAN CORPUSCULAR HEMOGLOBIN CONCENTRATION (G/DL) BY AUTOMATED 32.9 g/dL Normal 32.0-35.0 [facility] Comment on above: Performed By: #### L [id number] #### [facility] [address] [place] [address] Hematocrit (Bld) [Volume fraction] 35.9 % Low 39.0-55.0 [facility] Comment on above: Performed By: #### L [id number] #### [facility] ([facility]) [address] [place] [address] Hemoglobin (Bld) [Mass/Vol] 11.8 g/dL Low 13.0-17.0 [facility] Comment on above: Performed By: #### L [id number] #### [facility] ([facility]) [address] [place] [address] Immature granulocytes (Bld) [#/Vol] 0.07 10*3/uL Normal 0.00-0.20 [facility] Comment on above: Performed By: #### L [id number] #### [facility] ([facility]) [address] [place] [address] Immature granulocytes/100 WBC (Bld) 1.2 % High 0.0-1.0 [facility] Comment on above: Performed By: #### L [id number] #### [facility] ([facility]) [address] [place] [address] Lymphocytes (Bld) [#/Vol] 0.96 10*3/uL Low 1.20-4.00 [facility] Comment on above: Performed By: #### L [id number] #### [facility] ([facility]) [address] [place] [address] Lymphocytes/100 WBC (Bld) 16.4 % Low 20.0-45.0 [facility] Comment on above: Performed By: #### L [id number] #### [facility] ([facility]) [address] [place] [address] MCH (RBC) [Entitic mass] 28.6 pg Normal 27.0-33.0 [facility] Comment on above: Performed By: #### L [id number] #### [facility] ([facility]) [address] [place] [address] MCV (RBC) [Entitic vol] 86.9 fL Normal 82.0-98.0 [facility] Comment on above: Performed By: #### L [id number] #### [facility] ([facility]) [address] [place] [address] Monocytes (Bld) [#/Vol] 0.61 10*3/uL Normal 0.10-1.00 [facility] Comment on above: Performed By: #### L [id number] #### [facility] ([facility]) [address] [place] [address] Monocytes/100 WBC (Bld) 10.4 % Normal 5.0-12.0 [facility] Comment on above: Performed By: #### L [id number] #### [facility] ([facility]) [address] [place] [address] Neutrophils (Bld) [#/Vol] 4.12 10*3/uL Normal 1.60-7.60 [facility] Comment on above: Performed By: #### L [id number] #### [facility] ([facility]) [address] [place] [address] Neutrophils/100 WBC (Bld) 70.2 % Normal 40.0-72.0 [facility] Comment on above: Performed By: #### L [id number] #### [facility] ([facility]) [address] [place] [address] NRBC (PER 100 WBCS) BY AUTOMATED COUNT 0.0 % Normal 0 [facility] Comment on above: Performed By: #### L [id number] #### [facility] ([facility]) [address] [place] [address] PLATELETS (10*3/UL) IN BLOOD AUTOMATED COUNT 232 10*3/uL Normal 150-400 [facility] Comment on above: Performed By: #### L [id number] #### [facility] [address] [place] [address] RBC (Bld) [#/Vol] 4.13 10*6/uL Low 4.20-5.70 [facility] Comment on above: Performed By: #### L [id number] #### [facility] [address] [place] [address] WBC (Bld) [#/Vol] 5.87 10*3/uL Normal 4.00-10.60 [facility] Comment on above: Performed By: #### L [id number] #### [facility] ([facility]) [address] [place] [address] COMPREHENSIVE METABOLIC PANE Claudio 11-11-2022 Albumin [Mass/Vol] 4.5 g/dL Normal 3.5-5.7 [facility] Comment on above: Performed By: #### L [id number] #### [facility] ([facility]) [address] [place] [address] ALP [Catalytic activity/Vol] 131 U/L High 34-104 [facility] Comment on above: Performed By: #### L [id number] #### [facility] ([facility]) [address] [place] [address] ALT [Catalytic activity/Vol] 16 U/L Normal 7-52 [facility] Comment on above: Performed By: #### L [id number] #### [facility] ([facility]) [address] [place] [address] Anion gap [Moles/Vol] 14 mmol/L Normal 7-20 [facility] Comment on above: Performed By: #### L [id number] #### [facility] ([facility]) [address] [place] [address] AST [Catalytic activity/Vol] 17 U/L Normal 13-39 [facility] Comment on above: Performed By: #### L [id number] #### [facility] [address] [place] [address] Bilirubin [Mass/Vol] 0.4 mg/dL Normal 0.3-1.0 [facility] Comment on above: Performed By: #### L [id number] #### [facility] [address] [place] [address] Calcium [Mass/Vol] 8.0 mg/dL Low 8.6-10.3 [facility] Comment on above: Performed By: #### L [id number] #### [facility] [address] [place] [address] Chloride [Moles/Vol] 95 mmol/L Low 98-107 [facility] Comment on above: Performed By: #### L [id number] #### [facility] ([facility]) [address] [place] [address] CO2 [Moles/Vol] 24 mmol/L Normal 21-31 [facility] Comment on above: Performed By: #### L [id number] #### [facility] ([facility]) [address] [place] [address] Creatinine [Mass/Vol] 1.03 mg/dL Normal 0.70-1.30 [facility] Comment on above: Performed By: #### L [id number] #### [facility] ([facility]) [address] [place] [address] GLOMERULAR FILTRATION RATE ML/MIN/1.73 SQ M.PREDICTED 78.1 mL/min/1.73m*2 Normal >60.[address] [facility] Comment on above: Result Comment: [facility]???s estimated glomerular filtration rate (eGFR) will no [...] individuals. Performed By: #### L [id number] #### [facility] ([facility]) [address] [place] [address] Glucose [Mass/Vol] 202 mg/dL High 70-100 [facility] Comment on above: Performed By: #### L [id number] #### [facility] ([facility]) [address] [place] [address] Potassium [Moles/Vol] 4.6 mmol/L Normal 3.5-5.1 [facility] Comment on above: Performed By: #### L [id number] #### [facility] ([facility]) [address] [place] [address] Protein [Mass/Vol] 6.7 g/dL Normal 6.0-8.3 [facility] Comment on above: Performed By: #### L [id number] #### [facility] ([facility]) [address] [place] [address] Sodium [Moles/Vol] 128 mmol/L Low 136-145 [facility] Comment on above: Performed By: #### L [id number] #### [facility] ([facility]) [address] [place] [address] Urea nitrogen [Mass/Vol] 11 mg/dL Normal 7-25 [facility] Comment on above: Performed By: #### L [id number] #### [facility] ([facility]) [address] [place] [address] UREA NITROGEN/CREATININE (MASS RATIO) IN SER/PLAS 10.7 Normal [facility] Comment on above: Performed By: #### L [id number] #### [facility] ([facility]) [address] [place] [address] Documentationon 11-11-2022 Documentation [id number] Wm Suarez 1950 M Date Provider Department [...] Age at Mother Father Sister Brother Normal [facility] Documentation [id number] Wm Suarez 1950 M Date Provider Department Center 11/11/2022 3193-[place] [facility] TXP None Family History Problem Relation Age of Onset Diabetes Mother Hypertension Mother Coronary artery disease Mother Other Mother Cystic kidney disease Mother Hypertension Father Skin cancer Father Cystic kidney disease Father Cystic kidney disease Sister Heart disease Brother ALS Brother Cystic kidney disease Brother Family Status - Relation Status Age at Mother Father Sister Brother Normal [facility] Follow-Upon 11-11-2022 Follow-Up [id number] Wm Suarez 1950 M Date Provider Department [...] at Mother Father Sister Brother Level of Service:37884 MA OFFICE/OUTPATIENT ESTABLISHED LOW MDM 20-29 MIN Reason for Visit and Comments: Kidney Follow-up [[id number]] - 6 mo follow No concerns Normal [facility] HEMOGLOBIN A1Con 11-11-2022 Glucose [Mass/Vol] 197 mg/dL Normal [facility] Comment on above: Order Comment: DRAW Q 3 MONTHS MAY, August, November, FEBRUARY Performed By: #### L [id number] #### [facility] ([facility]) [address] [place] [address] HbA1c (Bld) [Mass fraction] 8.5 % High 4.0-6.0 [facility] Comment on above: Order Comment: DRAW Q 3 MONTHS MAY, August, November, FEBRUARY Performed By: #### L [id number] #### [facility] ([facility]) [address] [place] [address] LIPID PANELon 11-11-2022 CHOL/HDL 2.2 mg/dL Normal [facility] Comment on above: Performed By: #### L [id number] #### [facility] ([facility]) [address] [place] [address] Cholesterol [Mass/Vol] 90 mg/dL Low 120-200 [facility] Comment on above: Performed By: #### L [id number] #### [facility] [address] [place] [address] Magnesium [Mass/Vol] 60 mg/dL Normal 40-149 [facility] Comment on above: Result Comment: TRIG LYCERIDE REFERENCE RANGE: 20 YEARS AND OLDER CARDIOVASCULAR RISK LESS THAN 150 mg/dL LOW RISK 150 TO 199 mg/dL BORDERLINE RISK 200 mg/dL AND GREATER HIGH RISK Performed By: #### L [id number] #### [facility] ([facility]) [address] [place] [address] Magnesium [Mass/Vol] 37 mg/dL Normal 0-160 [facility] Comment on above: Performed By: #### L [id number] #### [facility] ([facility]) [address] [place] [address] Magnesium [Mass/Vol] 41 mg/dL Normal 23-92 [facility] Comment on above: Performed By: #### L [id number] #### [facility] ([facility]) [address] [place] [address] NON HDL CHOL. (LDL+VLDL) 49 Normal [facility] Comment on above: Performed By: #### L [id number] #### [facility] ([facility]) [address] [place] [address] TOTAL VLDL-C 12 mg/dL Normal 0-[address] [facility] Comment on above: Performed By: #### L [id number] #### [facility] ([facility]) [address] [place] [address] Labon 11-11-2022 Lab [id number] Wm Suarez 1950 M Date Provider Department Center 11/11/[id number]-AWR DRAW STATION KXT Draw [facility] Family History Problem Relation Age of Onset Diabetes Mother Hypertension Mother Coronary artery disease Mother Other Mother Cystic kidney disease Mother Hypertension Father Skin cancer Father Cystic kidney disease Father Cystic kidney disease Sister Heart disease Brother ALS Brother Cystic kidney disease Brother Family Status - Relation Status Age at Mother Father Sister Brother Normal [facility] MAGNESIUMon 11-11-2022 Magnesium [Mass/Vol] 1.3 mg/dL Low 1.9-2.7 [facility] Comment on above: Performed By: #### L [id number] #### [facility] ([facility]) [address] [place] [address] Orders Onlyon 11-11-2022 Orders Only [id number] Wm Suarez 1950 M Date Provider Department [...] Age at Mother Father Sister Brother Normal [facility] PHOSPHORUSon 11-11-2022 Magnesium [Mass/Vol] 4.2 mg/dL Normal 2.5-5.0 [facility] Comment on above: Performed By: #### L [id number] #### [facility] ([facility]) [address] [place] [address] TACROLIMUS LEVELon Tacrolimus (Bld) [Mass/Vol] 6.2 ng/mL Normal 5.0-20.0 [facility] Comment on above: Result Comment: DRAW Q 3 MONTHS MAY, August, November, FEBRUARY Performed By: #### L [id number] #### [facility] ([facility]) [address] [place] [address] URIC ACIDon 11-11-2022 Magnesium [Mass/Vol] 6.0 mg/dL Normal 4.4-7.6 [facility] Comment on above: Performed By: #### L [id number] #### [facility] ([facility]) [address] [place] [address] 36on 10-09-2022 36 Per patient he has been getting labs done monthly at [facility]. [employer] called [facility] and spoke with medical records whom state they will fax over labs from May until now. Normal [facility] FK506 (TACROLIMUS) WHOLE BLO ODon 10-06-2022 Tacrolimus (FK506), Blood 3.8 ng/mL Normal 2.0-20.0 [facility] Comment on above: Result Comment: Trou gh (immediately following transplant) 15.0 . Trough (steady state, 2 weeks or more after transplant): 3.0 - 8.0 . Performed by LC-MS/MS technology. Performed By: #### U CLINT, CMP, LIPID, DBIL, PHOS, MG #### [facility] [address] [address] [address] Brea Causey Office Visiton 10-04-2022 Follow-up visit [id number] Wm Suarez 1950 M Date Provider Department Center 10/04/2022 MARIO SINGH [facility] Family History Problem Relation Age of Onset Diabetes Mother Hypertension Mother Coronary artery disease Mother Other Mother Cystic kidney disease Mother Hypertension Father Skin cancer Father Cystic kidney disease Father Cystic kidney disease Sister Heart disease Brother ALS Brother Cystic kidney disease Brother Family Status - Relation Status Age at Mother Father Sister Brother Level of Service:58062 MA OFFICE/OUTPATIENT ESTABLISHED MOD MDM 30-39 MIN Reason for Visit and Comments: Coronary Artery Disease [187] Hypertension [979542] Congestive Heart Failure [127] Normal [facility] BILIRUBIN CONJUGATED (DIRECT )on 10-03-2022 BILI, CONJUGATED 0.1 mg/dL Normal 0.0-0.2 [facility] Comment on above: Performed By: #### C BC #### [facility] [address] [place] [address] Dr. Brea Causey CBC AUTO DIFFon 10-03-2022 BASO # 0.0 103/ul Normal 0.0-0.1 [facility] Comment on above: Performed By: #### U CLINT, CMP, LIPID, DBIL, PHOS, MG #### [facility] [address] [place] [address] Dr. Brea Causey Basophils/100 WBC (Bld) 0.5 % Normal 0.2-2.0 [facility] Comment on above: Performed By: #### U CLINT, CMP, LIPID, DBIL, PHOS, MG #### [facility] [address] [place] [address] Dr. Brea Causey EO # 0.1 103/ul Normal 0.0-0.7 [facility] Comment on above: Performed By: #### U CLINT, CMP, LIPID, DBIL, PHOS, MG #### [facility] [address] [place] [address] Dr. Brea Causey Eosinophils/100 WBC (Bld) 2.3 % Normal 0.9-7.0 [facility] Comment on above: Performed By: #### U CLINT, CMP, LIPID, DBIL, PHOS, MG #### [facility] [address] [place] [address] Dr. Brea Causey Erythrocyte distribution width (RBC) [Ratio] 13.2 % Normal 11.0-15.0 [facility] Comment on above: Performed By: #### U CLINT, CMP, LIPID, DBIL, PHOS, MG #### [facility] [address] [place] [address] Dr. Brea Causey Hematocrit (Bld) [Volume fraction] 35.0 % Critically low 42.0-54.0 [facility] Comment on above: Performed By: #### U CLINT, CMP, LIPID, DBIL, PHOS, MG #### [facility] [address] [place] [address] Dr. Brea Causey Hemoglobin (Bld) [Mass/Vol] 11.7 g/dL Critically low 14.0-18.0 [facility] Comment on above: Performed By: #### U CLINT, CMP, LIPID, DBIL, PHOS, MG #### [facility] [address] [place] [address] Dr. Brea Causey IG # 0.06 10e3/ul Critically high 0.00-0.03 [facility] Comment on above: Performed By: #### U CLINT, CMP, LIPID, DBIL, PHOS, MG #### [facility] [address] [place] [address] Dr. Brea Causey IG % 1.1 % Critically high 0.0-0.5 [facility] Comment on above: Performed By: #### U CLINT, CMP, LIPID, DBIL, PHOS, MG #### [facility] [address] [place] [address] Dr. Brea Causey LYMPH # 0.8 103/ul Critically low 1.2-3.8 [facility] Comment on above: Performed By: #### U CLINT, CMP, LIPID, DBIL, PHOS, MG #### [facility] [address] [place] [address] Dr. Brea Causey Lymphocytes/100 WBC (Bld) 14.9 % Critically low 20.5-60.0 [facility] Comment on above: Performed By: #### U CLINT, CMP, LIPID, DBIL, PHOS, MG #### [facility] [address] [place] [address] Dr. Brea Causey MANUAL DIFF REQ NO Normal [facility] Comment on above: Performed By: #### U CLINT, CMP, LIPID, DBIL, PHOS, MG #### [facility] [address] [place] [address] Dr. Brea Causey MCH (RBC) [Entitic mass] 28.8 pg Normal 25.9-34.0 [facility] Comment on above: Performed By: #### U CLINT, CMP, LIPID, DBIL, PHOS, MG #### [facility] [address] [place] [address] Dr. Brea Causey MCHC (RBC) [Mass/Vol] 33.4 g/dL Normal 29.9-35.2 [facility] Comment on above: Performed By: #### U CLINT, CMP, LIPID, DBIL, PHOS, MG #### [facility] [address] [place] [address] Dr. Brea Causey MCV (RBC) [Entitic vol] 86.2 fL Normal 80.0-94.0 [facility] Comment on above: Performed By: #### U CLINT, CMP, LIPID, DBIL, PHOS, MG #### [facility] [address] [place] [address] Dr. Brea Causey MONO # 0.5 103/ul Normal 0.3-0.8 [facility] Comment on above: Performed By: #### U CLINT, CMP, LIPID, DBIL, PHOS, MG #### [facility] [address] [address] [address] Brea Causey Monocytes/100 WBC (Bld) 9.1 % Normal 1.7-12.0 [facility] Comment on above: Performed By: #### U CLINT, CMP, LIPID, DBIL, PHOS, MG #### [facility] [address] [place] [address] Dr. Brea Causey NEUT # 4.1 103/ul Normal 1.4-6.5 [facility] Comment on above: Performed By: #### U CLINT, CMP, LIPID, DBIL, PHOS, MG #### [facility] [address] [place] [address] Dr. Brea Causey Neutrophils/100 WBC (Bld) 72.1 % Normal 43.0-75.0 [facility] Comment on above: Performed By: #### U CLINT, CMP, LIPID, DBIL, PHOS, MG #### [facility] [address] [place] [address] Dr. Brea Causey Platelet mean volume (Bld) [Entitic vol] 9.0 fL Critically low 9.5-13.5 [facility] Comment on above: Performed By: #### U CLINT, CMP, LIPID, DBIL, PHOS, MG #### [facility] [address] [place] [address] Dr. Brea Causey PLT 211 103/ul Normal 150-450 [facility] Comment on above: Performed By: #### U CLINT, CMP, LIPID, DBIL, PHOS, MG #### [facility] [address] [place] [address] Dr. Brea Causey RBC 4.06 106/ul Critically low 4.70-6.10 [facility] Comment on above: Performed By: #### U CLINT, CMP, LIPID, DBIL, PHOS, MG #### [facility] [address] [place] [address] Dr. Brea Causey WBC 5.6 103/ul Normal 4.0-11.0 [facility] Comment on above: Performed By: #### U CLINT, CMP, LIPID, DBIL, PHOS, MG #### [facility] [address] [address] [address] Brea Causey LIPID PROFILEon 10-03-2022 CHOL-HDL RATIO NORM SEE BELOW Normal [facility] Comment on above: Result Comment: 3.3 - 4.4 LOW RISK 4.4 - 7.1 AVERAGE RISK 7.1 - 11.0 MODERATE RISK >11.0 HIGH RISK Performed By: #### C BC #### [facility] [address] [address] [address] Brea Causey Cholesterol [Mass/Vol] 93 mg/dL Normal <=200 [facility] Comment on above: Performed By: #### C BC #### [facility] [address] [address] [address] Brea Causey Cholesterol in HDL [Mass/Vol] 43 mg/dL Normal 40-60 [facility] Comment on above: Performed By: #### C BC #### [facility] [address] [address] [address] Brea Causey Cholesterol in LDL [Mass/Vol] 37.6 mg/dL Normal [facility] Comment on above: Performed By: #### C BC #### [facility] [id number] Brea Causey Cholesterol.total/Cho lesterol in HDL [Mass ratio] 2.2 {ratio} Normal [facility] Comment on above: Performed By: #### C BC #### [facility] [address] [address] [address] Brea Causey HDL NORMAL > or = 60 mg/dl - LO W CARDIOVASCULAR RISK <40 mg/dl - HIGH CARDIOVASCULAR RISK Normal [facility] Comment on above: Performed By: #### C BC #### [facility] [id number] Brea Causey LDL CALC NORMAL SEE BELOW Normal [facility] Comment on above: Result Comment: <100 mg/dl OPTIMAL 100 - 129 mg/dl NEAR OR ABOVE OPTIMAL 130 - 159 mg/dl BORDERLINE HIGH 160 - 189 mg/dl HIGH >190 mg/dl VERY HIGH Performed By: #### C BC #### [facility] [address] [address] [address] Brea Causey Triglyceride [Mass/Vol] 62 mg/dL Normal <=150 [facility] Comment on above: Performed By: #### C BC #### [facility] [address] [place] [address] Dr. Brea Causey VLDL CALC 12.4 mg/dL Normal [facility] Comment on above: Performed By: #### C BC #### [facility] [address] [place] [address] Dr. Brea Causey MAGNESIUMon 10-03-2022 Magnesium [Mass/Vol] 1.5 mg/dL Critically low 1.8-2.4 [facility] Comment on above: Performed By: #### C BC #### [facility] [address] [place] [address] Dr. Brea Causey PHOSPHORUSon 10-03-2022 Phosphate [Mass/Vol] 4.4 mg/dL Normal 2.6-4.7 [facility] Comment on above: Performed By: #### C BC #### [facility] [address] [place] [address] Dr. Brea Causey PROF 14(COMP METB)on 023 Albumin [Mass/Vol] 3.8 g/dL Normal 3.4-5.0 [facility] Comment on above: Performed By: #### C BC #### [facility] [address] [place] [address] Dr. Brea Causey Albumin/Globulin [Mass ratio] 1.1 {ratio} Normal [facility] Comment on above: Performed By: #### C BC #### [facility] [address] [place] [address] Dr. Brea Causey ALP [Catalytic activity/Vol] 190 U/L Critically high 46-116 [facility] Comment on above: Performed By: #### C BC #### [facility] [address] [place] [address] Dr. Brea Causey ALT [Catalytic activity/Vol] 26 U/L Normal 16-63 [facility] Comment on above: Performed By: #### C BC #### [facility] [address] [address] [address] Brea Causey Anion gap [Moles/Vol] 15.3 mmol/L Normal [facility] Comment on above: Performed By: #### C BC #### [facility] [address] [address] [address] Brea Causey AST [Catalytic activity/Vol] 23 U/L Normal 15-37 [facility] Comment on above: Performed By: #### C BC #### [facility] [address] [address] [address] Brea Causey Bilirubin [Mass/Vol] 0.4 mg/dL Normal 0.2-1.0 [facility] Comment on above: Performed By: #### C BC #### [facility] [address] [place] [address] Dr. Brea Causey Calcium [Mass/Vol] 7.8 mg/dL Critically low 8.5-10.1 [facility] Comment on above: Performed By: #### C BC #### [facility] [address] [address] [address] Brea Causey Chloride [Moles/Vol] 97 mmol/L Critically low 98-107 [facility] Comment on above: Performed By: #### C BC #### [facility] [address] [address] [address] Brea Causey CO2 [Moles/Vol] 25.6 mmol/L Normal 21.0-32.0 [facility] Comment on above: Performed By: #### C BC #### [facility] [address] [address] [address] Brea Causey Creatinine [Mass/Vol] 1.03 mg/dL Normal 0.70-1.30 [facility] Comment on above: Performed By: #### C BC #### [facility] [address] [place] [address] Dr. Brea Causey EGFR-AF INDONESIAN >60 Normal >=60 [facility] Comment on above: Performed By: #### C BC #### [facility] [address] [place] [address] Dr. Brea Causey EGFR-NON AF INDONESIAN >60 Normal >=60 [facility] Comment on above: Performed By: #### C BC #### [facility] [address] [address] [address] Brea Causey Globulin (S) [Mass/Vol] 3.6 g/dL Normal [facility] Comment on above: Performed By: #### C BC #### [facility] [address] [place] [address] Dr. Brea Causey Glucose [Mass/Vol] 188 mg/dL Critically high 74-106 [facility] Comment on above: Performed By: #### C BC #### [facility] [address] [place] [address] Dr. Brea Causey Potassium [Moles/Vol] 4.9 mmol/L Normal 3.5-5.1 [facility] Comment on above: Performed By: #### C BC #### [facility] [address] [place] [address] Dr. Brea Causey Protein [Mass/Vol] 7.4 g/dL Normal 6.4-8.2 [facility] Comment on above: Performed By: #### C BC #### [facility] [address] [place] [address] Dr. Brea Causey Sodium [Moles/Vol] 133 mmol/L Critically low 136-145 [facility] Comment on above: Performed By: #### C BC #### [facility] [address] [place] [address] Dr. Brea Casuey Urea nitrogen [Mass/Vol] 11.0 mg/dL Normal 7.0-18.0 [facility] Comment on above: Performed By: #### C BC #### [facility] [address] [place] [address] Dr. Brea Causey Urea nitrogen/Creatinine [Mass ratio] 10.7 mg/mg Normal [facility] Comment on above: Performed By: #### C BC #### [facility] [address] [place], [place] [id number] Dr. Brea Causey URIC ACID SERUMon 10-03-2022 Urate [Mass/Vol] 5.7 mg/dL Normal 3.5-7.2 [facility] Comment on above: Performed By: #### C BC #### [facility] [address] [place] [address] Dr. Brea Causey BK VIRUS PCR QUANTon 023 BKV DNA QUANT PCR PLASMA Negative Normal Negative [facility] Comment on above: Result Comment: No B K DNA detected. . The linear range of the assay is 22 - 100,000,000 IU/mL. Performed By: #### U CLINT, CMP, LIPID, DBIL, PHOS, MG #### [facility] [address] [place] [address] Dr. Brea Causey Log10 BKV DNA Plasma Normal [facility] Comment on above: Performed By: #### U CLINT, CMP, LIPID, DBIL, PHOS, MG #### [facility] [address] [place] [address] Dr. Brea Causey FK506 (TACROLIMUS) WHOLE BLO ODon 09-02-2022 Tacrolimus (FK506), Blood 3.8 ng/mL Normal 2.0-20.0 [facility] Comment on above: Result Comment: Trou gh (immediately following transplant) 15.0 . Trough (steady state, 2 weeks or more after transplant): 3.0 - 8.0 . Performed by LC-MS/MS technology. Performed By: #### U CLINT, CMP, LIPID, DBIL, PHOS, MG #### [facility] [address] [place] [address] Dr. Brea Causey TESTOSTERONE, FREE,DIRECT, T OTALon 09-01-2022 Free Testosterone(Direct) 9.7 pg/mL Normal 6.6-18.1 [facility] Comment on above: Result Comment: Perf ormed at: BN Performed By: #### U CLINT, CMP, LIPID, DBIL, PHOS, MG #### [facility] [address] [place] [address] Dr. Brea Causey Testosterone [Mass/Vol] 565 ng/dL Normal 264-916 [facility] Comment on above: Result Comment: Adul t male reference interval is based on a population of healthy nonobese males (BMI <30) between 19 and 39 years old. Steven et.al. JCEM 2017,102;[id number]. PMID: [id number]. Performed at: CB Performed By: #### U CLINT, CMP, LIPID, DBIL, PHOS, MG #### [facility] [address] [place] [address] Dr. Brea Causey BILIRUBIN CONJUGATED (DIRECT )on 08-30-2022 BILI, CONJUGATED 0.1 mg/dL Normal 0.0-0.2 [facility] Comment on above: Performed By: #### U CLINT, CMP, LIPID, DBIL, PHOS, MG #### [facility] [address] [place] [address] Dr. Brea Causey CBC AUTO DIFFon 08-30-2022 BASO # 0.0 103/ul Normal 0.0-0.1 [facility] Comment on above: Performed By: #### U CLINT, CMP, LIPID, DBIL, PHOS, MG #### [facility] [address] [place] [address] Dr. Brea Causey Basophils/100 WBC (Bld) 0.7 % Normal 0.2-2.0 [facility] Comment on above: Performed By: #### U CLINT, CMP, LIPID, DBIL, PHOS, MG #### [facility] [address] [address] [address] Brea Causey EO # 0.2 103/ul Normal 0.0-0.7 [facility] Comment on above: Performed By: #### U CLINT, CMP, LIPID, DBIL, PHOS, MG #### [facility] [address] [place] [address] Dr. Brea Causey Eosinophils/100 WBC (Bld) 3.6 % Normal 0.9-7.0 [facility] Comment on above: Performed By: #### U CLINT, CMP, LIPID, DBIL, PHOS, MG #### [facility] [address] [place] [address] Dr. Brea Causey Erythrocyte distribution width (RBC) [Ratio] 13.2 % Normal 11.0-15.0 [facility] Comment on above: Performed By: #### U CLINT, CMP, LIPID, DBIL, PHOS, MG #### [facility] [address] [place] [address] Dr. Brea Causey Hematocrit (Bld) [Volume fraction] 36.0 % Critically low 42.0-54.0 [facility] Comment on above: Performed By: #### U CLINT, CMP, LIPID, DBIL, PHOS, MG #### [facility] [address] [place] [address] Dr. Brea Causey Hemoglobin (Bld) [Mass/Vol] 12.2 g/dL Critically low 14.0-18.0 [facility] Comment on above: Performed By: #### U CLINT, CMP, LIPID, DBIL, PHOS, MG #### [facility] [address] [place] [address] Dr. Brea Causey IG # 0.07 10e3/ul Critically high 0.00-0.03 [facility] Comment on above: Performed By: #### U CLINT, CMP, LIPID, DBIL, PHOS, MG #### [facility] [address] [place] [address] Dr. Brea Causey IG % 1.2 % Critically high 0.0-0.5 [facility] Comment on above: Performed By: #### U CLINT, CMP, LIPID, DBIL, PHOS, MG #### [facility] [address] [place] [address] Dr. Brea Causey LYMPH # 0.9 103/ul Critically low 1.2-3.8 [facility] Comment on above: Performed By: #### U CLINT, CMP, LIPID, DBIL, PHOS, MG #### [facility] [address] [place] [address] Dr. Brea Causey Lymphocytes/100 WBC (Bld) 15.0 % Critically low 20.5-60.0 [facility] Comment on above: Performed By: #### U CLINT, CMP, LIPID, DBIL, PHOS, MG #### [facility] [address] [place] [address] Dr. Brea Causey MANUAL DIFF REQ NO Normal [facility] Comment on above: Performed By: #### U CLINT, CMP, LIPID, DBIL, PHOS, MG #### [facility] [address] [place] [address] Dr. Brea Causey MCH (RBC) [Entitic mass] 29.4 pg Normal 25.9-34.0 [facility] Comment on above: Performed By: #### U CLINT, CMP, LIPID, DBIL, PHOS, MG #### [facility] [address] [place] [address] Dr. Brea Causey MCHC (RBC) [Mass/Vol] 33.9 g/dL Normal 29.9-35.2 [facility] Comment on above: Performed By: #### U CLINT, CMP, LIPID, DBIL, PHOS, MG #### [facility] [address] [place] [address] Dr. Brea Causey MCV (RBC) [Entitic vol] 86.7 fL Normal 80.0-94.0 [facility] Comment on above: Performed By: #### U CLINT, CMP, LIPID, DBIL, PHOS, MG #### [facility] [address] [place] [address] Dr. Brea Causey MONO # 0.5 103/ul Normal 0.3-0.8 [facility] Comment on above: Performed By: #### U CLINT, CMP, LIPID, DBIL, PHOS, MG #### [facility] [address] [place] [address] Dr. Brea Causey Monocytes/100 WBC (Bld) 9.0 % Normal 1.7-12.0 [facility] Comment on above: Performed By: #### U CLINT, CMP, LIPID, DBIL, PHOS, MG #### [facility] [address] [place] [address] Dr. Brea Causey NEUT # 4.2 103/ul Normal 1.4-6.5 [facility] Comment on above: Performed By: #### U CLINT, CMP, LIPID, DBIL, PHOS, MG #### [facility] [address] [address] [address] Brea Causey Neutrophils/100 WBC (Bld) 70.5 % Normal 43.0-75.0 [facility] Comment on above: Performed By: #### U CLINT, CMP, LIPID, DBIL, PHOS, MG #### [facility] [address] [address] [address] Brea Causey Platelet mean volume (Bld) [Entitic vol] 8.7 fL Critically low 9.5-13.5 [facility] Comment on above: Performed By: #### U CLINT, CMP, LIPID, DBIL, PHOS, MG #### [facility] [address] [place] [address] Dr. Brea Causey PLT 247 103/ul Normal 150-450 [facility] Comment on above: Performed By: #### U CLINT, CMP, LIPID, DBIL, PHOS, MG #### [facility] [address] [place] [address] Dr. Brea Causey RBC 4.15 106/ul Critically low 4.70-6.10 [facility] Comment on above: Performed By: #### U CLINT, CMP, LIPID, DBIL, PHOS, MG #### [facility] [address] [place] [address] Dr. Brea Causey WBC 5.9 103/ul Normal 4.0-11.0 [facility] Comment on above: Performed By: #### U CLINT, CMP, LIPID, DBIL, PHOS, MG #### [facility] [address] [place] [address] Dr. Brea Causey GLYCOHEMOGLOBIN A1Con 2022 ADA RECOMMENDATION SEE BELOW Normal [facility] Comment on above: Result Comment: ADA RECOMMENDED LIMIT 4.0 - 6.0 ADA THERAPEUTIC TARGET < 7.0 ACTION SUGGESTED > 7.0 Performed By: #### U CLINT, CMP, LIPID, DBIL, PHOS, MG #### [facility] [address] [place] [address] Dr. Brea Causey Glucose [Mass/Vol] 177 mg/dL Normal [facility] Comment on above: Performed By: #### U CLINT, CMP, LIPID, DBIL, PHOS, MG #### [facility] [address] [address] [address] Brea Causey HbA1c (Bld) [Mass fraction] 7.8 % Critically high 4.5-6.2 [facility] Comment on above: Performed By: #### U CLINT, CMP, LIPID, DBIL, PHOS, MG #### [facility] [address] [address] [address] Brea Causey LIPID PROFILEon 08-30-2022 CHOL-HDL RATIO NORM SEE BELOW Normal [facility] Comment on above: Result Comment: 3.3 - 4.4 LOW RISK 4.4 - 7.1 AVERAGE RISK 7.1 - 11.0 MODERATE RISK >11.0 HIGH RISK Performed By: #### U CLINT, CMP, LIPID, DBIL, PHOS, MG #### [facility] [address] [address] [address] Brea Causey Cholesterol [Mass/Vol] 96 mg/dL Normal <=200 [facility] Comment on above: Performed By: #### U CLINT, CMP, LIPID, DBIL, PHOS, MG #### [facility] [address] [address] [address] Brea Causey Cholesterol in HDL [Mass/Vol] 48 mg/dL Normal 40-60 [facility] Comment on above: Performed By: #### U CLINT, CMP, LIPID, DBIL, PHOS, MG #### [facility] [address] [address] [address] Brea Causey Cholesterol in LDL [Mass/Vol] 40.2 mg/dL Normal [facility] Comment on above: Performed By: #### U CLINT, CMP, LIPID, DBIL, PHOS, MG #### [facility] [address] [address] [address] Brea Causey Cholesterol.total/Cho lesterol in HDL [Mass ratio] 2.0 {ratio} Normal [facility] Comment on above: Performed By: #### U CLINT, CMP, LIPID, DBIL, PHOS, MG #### [facility] [address] [address] [address] Brea Causey HDL NORMAL > or = 60 mg/dl - LO W CARDIOVASCULAR RISK <40 mg/dl - HIGH CARDIOVASCULAR RISK Normal [facility] Comment on above: Performed By: #### U CLINT, CMP, LIPID, DBIL, PHOS, MG #### [facility] [address] [address] [address] Brea Causey LDL CALC NORMAL SEE BELOW Normal [facility] Comment on above: Result Comment: <100 mg/dl OPTIMAL 100 - 129 mg/dl NEAR OR ABOVE OPTIMAL 130 - 159 mg/dl BORDERLINE HIGH 160 - 189 mg/dl HIGH >190 mg/dl VERY HIGH Performed By: #### U CLINT, CMP, LIPID, DBIL, PHOS, MG #### [facility] [address] [address] [address] Brea Causey Triglyceride [Mass/Vol] 39 mg/dL Normal <=150 [facility] Comment on above: Performed By: #### U CLINT, CMP, LIPID, DBIL, PHOS, MG #### [facility] [address] [address] [address] Brea Causey VLDL CALC 7.8 mg/dL Normal [facility] Comment on above: Performed By: #### U CLINT, CMP, LIPID, DBIL, PHOS, MG #### [facility] [address] [address] [address] Brea Causey MAGNESIUMon 08-30-2022 Magnesium [Mass/Vol] 1.5 mg/dL Critically low 1.8-2.4 [facility] Comment on above: Performed By: #### U CLINT, CMP, LIPID, DBIL, PHOS, MG #### [facility] [address] [address] [address] Brea Causey PHOSPHORUSon 08-30-2022 Phosphate [Mass/Vol] 4.0 mg/dL Normal 2.6-4.7 [facility] Comment on above: Performed By: #### U CLINT, CMP, LIPID, DBIL, PHOS, MG #### [facility] [address] [place] [address] Dr. Brea Causey PROF 14(COMP METB)on 023 Albumin [Mass/Vol] 3.8 g/dL Normal 3.4-5.0 [facility] Comment on above: Performed By: #### U CLINT, CMP, LIPID, DBIL, PHOS, MG #### [facility] [address] [place] [address] Dr. Brea Causey Albumin/Globulin [Mass ratio] 1.1 {ratio} Normal [facility] Comment on above: Performed By: #### U CLINT, CMP, LIPID, DBIL, PHOS, MG #### [facility] [address] [place] [address] Dr. Brea Causey ALP [Catalytic activity/Vol] 177 U/L Critically high 46-116 [facility] Comment on above: Performed By: #### U CLINT, CMP, LIPID, DBIL, PHOS, MG #### [facility] [address] [place] [address] Dr. Brea Causey ALT [Catalytic activity/Vol] 27 U/L Normal 16-63 [facility] Comment on above: Performed By: #### U CLINT, CMP, LIPID, DBIL, PHOS, MG #### [facility] [address] [place] [address] Dr. Brea Causey Anion gap [Moles/Vol] 12.1 mmol/L Normal [facility] Comment on above: Performed By: #### U CLINT, CMP, LIPID, DBIL, PHOS, MG #### [facility] [address] [place] [address] Dr. Brea Causey AST [Catalytic activity/Vol] 19 U/L Normal 15-37 [facility] Comment on above: Performed By: #### U CLINT, CMP, LIPID, DBIL, PHOS, MG #### [facility] [address] [place] [address] Dr. Brea Causey Bilirubin [Mass/Vol] 0.3 mg/dL Normal 0.2-1.0 [facility] Comment on above: Performed By: #### U CLINT, CMP, LIPID, DBIL, PHOS, MG #### [facility] [address] [address] [address] Brea Causey Calcium [Mass/Vol] 8.0 mg/dL Critically low 8.5-10.1 [facility] e [facility] Comment on above: Performed By: #### U CLINT, CMP, LIPID, DBIL, PHOS, MG #### [facility] [address] [address] [address] Brea Causey Chloride [Moles/Vol] 96 mmol/L Critically low 98-107 [facility] Comment on above: Performed By: #### U CLINT, CMP, LIPID, DBIL, PHOS, MG #### [facility] [address] [place] [address] Dr. Brea Causey CO2 [Moles/Vol] 28.0 mmol/L Normal 21.0-32.0 [facility] Comment on above: Performed By: #### U CLINT, CMP, LIPID, DBIL, PHOS, MG #### [facility] [address] [place] [address] Dr. Brea Causey Creatinine [Mass/Vol] 1.07 mg/dL Normal 0.70-1.30 [facility] Comment on above: Performed By: #### U CLINT, CMP, LIPID, DBIL, PHOS, MG #### [facility] [address] [place] [address] Dr. Brea Causey EGFR-AF INDONESIAN >60 Normal >=60 [facility] Comment on above: Performed By: #### U CLINT, CMP, LIPID, DBIL, PHOS, MG #### [facility] [address] [place] [address] Dr. Brea Causey EGFR-NON AF INDONESIAN >60 Normal >=60 [facility] Comment on above: Performed By: #### U CLINT, CMP, LIPID, DBIL, PHOS, MG #### [facility] [address] [place] [address] Dr. Brea Causey Globulin (S) [Mass/Vol] 3.5 g/dL Normal [facility] Comment on above: Performed By: #### U CLINT, CMP, LIPID, DBIL, PHOS, MG #### [facility] [address] [address] [address] Brea Causey Glucose [Mass/Vol] 179 mg/dL Critically high 74-106 [facility] Comment on above: Performed By: #### U CLINT, CMP, LIPID, DBIL, PHOS, MG #### [facility] [address] [address] [address] Brea Causey Potassium [Moles/Vol] 5.1 mmol/L Normal 3.5-5.1 [facility] Comment on above: Performed By: #### U CLINT, CMP, LIPID, DBIL, PHOS, MG #### [facility] [address] [place] [address] Dr. Brea Causey Protein [Mass/Vol] 7.3 g/dL Normal 6.4-8.2 [facility] Comment on above: Performed By: #### U CLINT, CMP, LIPID, DBIL, PHOS, MG #### [facility] [address] [place] [address] Dr. Brea Causey Sodium [Moles/Vol] 131 mmol/L Critically low 136-145 [facility] Comment on above: Performed By: #### U CLINT, CMP, LIPID, DBIL, PHOS, MG #### [facility] [facility] [address] [place] [address] Dr. Brea Causey Urea nitrogen [Mass/Vol] 10.0 mg/dL Normal 7.0-18.0 [facility] Comment on above: Performed By: #### U CLINT, CMP, LIPID, DBIL, PHOS, MG #### [facility] [address] [place] [address] Dr. Brea Causey Urea nitrogen/Creatinine [Mass ratio] 9.3 mg/mg Normal [facility] Comment on above: Performed By: #### U CLINT, CMP, LIPID, DBIL, PHOS, MG #### [facility] [address] [place] [address] Dr. Brea Causey URIC ACID SERUMon 08-30-2022 Urate [Mass/Vol] 6.0 mg/dL Normal 3.5-7.2 [facility] Comment on above: Performed By: #### U CLINT, CMP, LIPID, DBIL, PHOS, MG #### [facility] [address] [place] [address] Dr. Brea Causey FK506 (TACROLIMUS) WHOLE BLO ODon 08-03-2022 Tacrolimus (FK506), Blood 3.2 ng/mL Normal 2.0-20.0 [facility] Comment on above: Result Comment: Trou gh (immediately following transplant) 15.0 . Trough (steady state, 2 weeks or more after transplant): 3.0 - 8.0 . Performed by LC-MS/MS technology. Performed By: #### C BC #### [facility] [address] [place] [address] Dr. Brea Causey BILIRUBIN CONJUGATED (DIRECT )on 08-01-2022 BILI, CONJUGATED 0.1 mg/dL Normal 0.0-0.2 [facility] Comment on above: Performed By: #### U CLINT, CMP, LIPID, DBIL, PHOS, MG #### [facility] [address] [place] [address] Dr. Brea Causey CBC AUTO DIFFon 08-01-2022 BASO # 0.0 103/ul Normal 0.0-0.1 [facility] Comment on above: Performed By: #### C BC #### [facility] [address] [place] [address] Dr. Brea Causey Basophils/100 WBC (Bld) 0.7 % Normal 0.2-2.0 [facility] Comment on above: Performed By: #### C BC #### [facility] [address] [place] [address] Dr. Brea Causey EO # 0.1 103/ul Normal 0.0-0.7 [facility] Comment on above: Performed By: #### C BC #### [facility] [address] [place] [address] Dr. Brea Causey Eosinophils/100 WBC (Bld) 2.4 % Normal 0.9-7.0 [facility] Comment on above: Performed By: #### C BC #### [facility] [address] [place] [address] Dr. Brea Causey Erythrocyte distribution width (RBC) [Ratio] 13.3 % Normal 11.0-15.0 [facility] Comment on above: Performed By: #### C BC #### [facility] [address] [place] [address] Dr. Brea Causey Hematocrit (Bld) [Volume fraction] 36.5 % Critically low 42.0-54.0 [facility] Comment on above: Performed By: #### C BC #### [facility] [address] [place] [address] Dr. Brea Causey Hemoglobin (Bld) [Mass/Vol] 12.1 g/dL Critically low 14.0-18.0 [facility] Comment on above: Performed By: #### C BC #### [facility] [address] [place] [address] Dr. Brea Causey IG # 0.07 10e3/ul Critically high 0.00-0.03 [facility] Comment on above: Performed By: #### C BC #### [facility] [address] [place] [address] Dr. Brea Causey IG % 1.2 % Critically high 0.0-0.5 [facility] Comment on above: Performed By: #### C BC #### [facility] [address] [place] [address] Dr. Brea Causey LYMPH # 0.9 103/ul Critically low 1.2-3.8 [facility] Comment on above: Performed By: #### C BC #### [facility] [address] [place] [address] Dr. Brea Causey Lymphocytes/100 WBC (Bld) 14.5 % Critically low 20.5-60.0 [facility] Comment on above: Performed By: #### C BC #### [facility] [address] [place] [address] Dr. Brea Causey MANUAL DIFF REQ NO Normal [facility] Comment on above: Performed By: #### C BC #### [facility] [address] [place] [address] Dr. Brea Causey MCH (RBC) [Entitic mass] 28.8 pg Normal 25.9-34.0 [facility] Comment on above: Performed By: #### C BC #### [facility] [address] [place] [address] Dr. Brea Causey MCHC (RBC) [Mass/Vol] 33.2 g/dL Normal 29.9-35.2 [facility] Comment on above: Performed By: #### C BC #### [facility] [address] [place] [address] Dr. Brea Causey MCV (RBC) [Entitic vol] 86.9 fL Normal 80.0-94.0 [facility] Comment on above: Performed By: #### C BC #### [facility] [address] [place] [address] Dr. Brea Causey MONO # 0.6 103/ul Normal 0.3-0.8 [facility] Comment on above: Performed By: #### C BC #### [facility] [address] [place] [address] Dr. Brea Causey Monocytes/100 WBC (Bld) 10.3 % Normal 1.7-12.0 [facility] Comment on above: Performed By: #### C BC #### [facility] [address] [place] [address] Dr. Brea Causey NEUT # 4.2 103/ul Normal 1.4-6.5 [facility] Comment on above: Performed By: #### C BC #### [facility] [address] [place] [address] Dr. Brea Causey Neutrophils/100 WBC (Bld) 70.9 % Normal 43.0-75.0 [facility] Comment on above: Performed By: #### C BC #### [facility] [address] [place] [address] Dr. Brea Causey Platelet mean volume (Bld) [Entitic vol] 9.1 fL Critically low 9.5-13.5 [facility] Comment on above: Performed By: #### C BC #### [facility] [address] [address] [address] Brea Causey PLT 248 103/ul Normal 150-450 [facility] Comment on above: Performed By: #### C BC #### [facility] [address] [place] [address] Dr. Brea Causey RBC 4.20 106/ul Critically low 4.70-6.10 [facility] Comment on above: Performed By: #### C BC #### [facility] [address] [address] [address] Brea Causey WBC 5.9 103/ul Normal 4.0-11.0 [facility] Comment on above: Performed By: #### C BC #### [facility] [address] [place] [address] Dr. Brea Causey LIPID PROFILEon 08-01-2022 CHOL-HDL RATIO NORM SEE BELOW Normal [facility] Comment on above: Result Comment: 3.3 - 4.4 LOW RISK 4.4 - 7.1 AVERAGE RISK 7.1 - 11.0 MODERATE RISK >11.0 HIGH RISK Performed By: #### U CLINT, CMP, LIPID, DBIL, PHOS, MG #### [facility] [address] [place] [address] Dr. Brea Causey Cholesterol [Mass/Vol] 95 mg/dL Normal <=200 [facility] Comment on above: Performed By: #### U CLINT, CMP, LIPID, DBIL, PHOS, MG #### [facility] [address] [place] [address] Dr. Brea Causey Cholesterol in HDL [Mass/Vol] 49 mg/dL Normal 40-60 [facility] Comment on above: Performed By: #### U CLINT, CMP, LIPID, DBIL, PHOS, MG #### [facility] [address] [place] [address] Dr. Brea Causey Cholesterol in LDL [Mass/Vol] 35.4 mg/dL Normal [facility] Comment on above: Performed By: #### U CLINT, CMP, LIPID, DBIL, PHOS, MG #### [facility] [address] [place], [place] [id number] Dr. Brea Causey Cholesterol.total/Cho lesterol in HDL [Mass ratio] 1.9 {ratio} Normal [facility] Comment on above: Performed By: #### U CLINT, CMP, LIPID, DBIL, PHOS, MG #### [facility] [address] [address] [address] Brea Causey HDL NORMAL > or = 60 mg/dl - LO W CARDIOVASCULAR RISK <40 mg/dl - HIGH CARDIOVASCULAR RISK Normal [facility] Comment on above: Performed By: #### U CLINT, CMP, LIPID, DBIL, PHOS, MG #### [facility] [address] [address] [address] Brea Causey LDL CALC NORMAL SEE BELOW Normal [facility] Comment on above: Result Comment: <100 mg/dl OPTIMAL 100 - 129 mg/dl NEAR OR ABOVE OPTIMAL 130 - 159 mg/dl BORDERLINE HIGH 160 - 189 mg/dl HIGH >190 mg/dl VERY HIGH Performed By: #### U CLINT, CMP, LIPID, DBIL, PHOS, MG #### [facility] [address] [address] [address] Brea Causey Triglyceride [Mass/Vol] 53 mg/dL Normal <=150 [facility] Comment on above: Performed By: #### U CLINT, CMP, LIPID, DBIL, PHOS, MG #### [facility] [address] [address] [address] Brea Causey VLDL CALC 10.6 mg/dL Normal [facility] Comment on above: Performed By: #### U CLINT, CMP, LIPID, DBIL, PHOS, MG #### [facility] [address] [address] [address] Brea Causey MAGNESIUMon 08-01-2022 Magnesium [Mass/Vol] 1.5 mg/dL Critically low 1.8-2.4 [facility] Comment on above: Performed By: #### U CLINT, CMP, LIPID, DBIL, PHOS, MG #### [facility] [address] [address] [address] Brea Causey PHOSPHORUSon 08-01-2022 Phosphate [Mass/Vol] 3.8 mg/dL Normal 2.6-4.7 [facility] Comment on above: Performed By: #### U CLINT, CMP, LIPID, DBIL, PHOS, MG #### [facility] [address] [place] [address] Dr. Brea Causey PROF 14(COMP METB)on 023 Albumin [Mass/Vol] 4.1 g/dL Normal 3.4-5.0 [facility] Comment on above: Performed By: #### U CLINT, CMP, LIPID, DBIL, PHOS, MG #### [facility] [address] [place] [address] Dr. Brea Causey Albumin/Globulin [Mass ratio] 1.3 {ratio} Normal [facility] Comment on above: Performed By: #### U CLINT, CMP, LIPID, DBIL, PHOS, MG #### [facility] [address] [place] [address] Dr. Brea Causey ALP [Catalytic activity/Vol] 197 U/L Critically high 46-116 [facility] Comment on above: Performed By: #### U CLINT, CMP, LIPID, DBIL, PHOS, MG #### [facility] [address] [place] [address] Dr. Brea Causey ALT [Catalytic activity/Vol] 26 U/L Normal 16-63 [facility] Comment on above: Performed By: #### U CLINT, CMP, LIPID, DBIL, PHOS, MG #### [facility] [address] [place] [address] Dr. Brea Causey Anion gap [Moles/Vol] 12.6 mmol/L Normal [facility] Comment on above: Performed By: #### U CLINT, CMP, LIPID, DBIL, PHOS, MG #### [facility] [address] [place] [address] Dr. Brea Causey AST [Catalytic activity/Vol] 20 U/L Normal 15-37 [facility] Comment on above: Performed By: #### U CLINT, CMP, LIPID, DBIL, PHOS, MG #### [facility] [address] [place] [address] Dr. Brea Causey Bilirubin [Mass/Vol] 0.4 mg/dL Normal 0.2-1.0 [facility] Comment on above: Performed By: #### U CLINT, CMP, LIPID, DBIL, PHOS, MG #### [facility] [address] [place] [address] Dr. Brea Causey Calcium [Mass/Vol] 7.9 mg/dL Critically low 8.5-10.1 [facility] Comment on above: Performed By: #### U CLINT, CMP, LIPID, DBIL, PHOS, MG #### [facility] [address] [place] [address] Dr. Brea Causey Chloride [Moles/Vol] 97 mmol/L Critically low 98-107 [facility] Comment on above: Performed By: #### U CLINT, CMP, LIPID, DBIL, PHOS, MG #### [facility] [address] [place] [address] Dr. Brea Causey CO2 [Moles/Vol] 28.9 mmol/L Normal 21.0-32.0 [facility] Comment on above: Performed By: #### U CLINT, CMP, LIPID, DBIL, PHOS, MG #### [facility] [address] [place] [address] Dr. Brea Causey Creatinine [Mass/Vol] 0.98 mg/dL Normal 0.70-1.30 [facility] Comment on above: Performed By: #### U CLINT, CMP, LIPID, DBIL, PHOS, MG #### [facility] [address] [place] [address] Dr. Brea Causey EGFR-AF INDONESIAN >60 Normal >=60 [facility] Comment on above: Performed By: #### U CLINT, CMP, LIPID, DBIL, PHOS, MG #### [facility] [address] [place] [address] Dr. Brea Causey EGFR-NON AF INDONESIAN >60 Normal >=60 [facility] Comment on above: Performed By: #### U CLINT, CMP, LIPID, DBIL, PHOS, MG #### [facility] [address] [place] [address] Dr. Brea Causey Globulin (S) [Mass/Vol] 3.2 g/dL Normal [facility] Comment on above: Performed By: #### U CLINT, CMP, LIPID, DBIL, PHOS, MG #### [facility] [address] [place] [address] Dr. Brea Causey Glucose [Mass/Vol] 174 mg/dL Critically high 74-106 [facility] Comment on above: Performed By: #### U CLINT, CMP, LIPID, DBIL, PHOS, MG #### [facility] [address] [place] [address] Dr. Brea Causey Potassium [Moles/Vol] 4.5 mmol/L Normal 3.5-5.1 [facility] Comment on above: Performed By: #### U CLINT, CMP, LIPID, DBIL, PHOS, MG #### [facility] [address] [place] [address] Dr. Brea Causey Protein [Mass/Vol] 7.3 g/dL Normal 6.4-8.2 [facility] Comment on above: Performed By: #### U CLINT, CMP, LIPID, DBIL, PHOS, MG #### [facility] [address] [place] [address] Dr. Brea Causey Sodium [Moles/Vol] 134 mmol/L Critically low 136-145 [facility] Comment on above: Performed By: #### U CLINT, CMP, LIPID, DBIL, PHOS, MG #### [facility] [address] [place] [address] Dr. Brea Causey Urea nitrogen [Mass/Vol] 8.0 mg/dL Normal 7.0-18.0 [facility] Comment on above: Performed By: #### U CLINT, CMP, LIPID, DBIL, PHOS, MG #### [facility] [address] [place] [address] Dr. Brea Causey Urea nitrogen/Creatinine [Mass ratio] 8.2 mg/mg Normal [facility] Comment on above: Performed By: #### U CLINT, CMP, LIPID, DBIL, PHOS, MG #### [facility] [address] [place] [address] Dr. Brea Causey URIC ACID SERUMon 08-01-2022 Urate [Mass/Vol] 5.8 mg/dL Normal 3.5-7.2 [facility] Comment on above: Performed By: #### U CLINT, CMP, LIPID, DBIL, PHOS, MG #### [facility] [address] [place] [address] Dr. Brea Causey FK506 (TACROLIMUS) WHOLE BLO ODon 07-07-2022 Tacrolimus (FK506), Blood 3.6 ng/mL Normal 2.0-20.0 [facility] Comment on above: Result Comment: Trou gh (immediately following transplant) 15.0 . Trough (steady state, 2 weeks or more after transplant): 3.0 - 8.0 . Performed by LC-MS/MS technology. Performed By: #### C BC #### [facility] [address] [place] [address] Dr. Brea Causey BILIRUBIN CONJUGATED (DIRECT )on 07-04-2022 BILI, CONJUGATED 0.1 mg/dL Normal 0.0-0.2 [facility] Comment on above: Performed By: #### B KVIRUS #### [facility] [address] [place] [address] Dr. Brea Causey CBC AUTO DIFFon 07-04-2022 BASO # 0.0 103/ul Normal 0.0-0.1 [facility] Comment on above: Performed By: #### U CLINT, CMP, LIPID, DBIL, PHOS, MG #### [facility] [address] [place] [address] Dr. Brea Causey Basophils/100 WBC (Bld) 0.5 % Normal 0.2-2.0 [facility] Comment on above: Performed By: #### U CLINT, CMP, LIPID, DBIL, PHOS, MG #### [facility] [address] [place] [address] Dr. Bera Causey EO # 0.2 103/ul Normal 0.0-0.7 [facility] Comment on above: Performed By: #### U CLINT, CMP, LIPID, DBIL, PHOS, MG #### [facility] [address] [address] [address] Brea Causey Eosinophils/100 WBC (Bld) 2.6 % Normal 0.9-7.0 [facility] Comment on above: Performed By: #### U CLINT, CMP, LIPID, DBIL, PHOS, MG #### [facility] [address] [address] [address] Brea Causey Erythrocyte distribution width (RBC) [Ratio] 13.3 % Normal 11.0-15.0 [facility] Comment on above: Performed By: #### U CLINT, CMP, LIPID, DBIL, PHOS, MG #### [facility] [address] [place] [address] Dr. Brea Causey Hematocrit (Bld) [Volume fraction] 37.2 % Critically low 42.0-54.0 [facility] Comment on above: Performed By: #### U CLINT, CMP, LIPID, DBIL, PHOS, MG #### [facility] [address] [place] [address] Dr. Brea Causey Hemoglobin (Bld) [Mass/Vol] 12.4 g/dL Critically low 14.0-18.0 [facility] Comment on above: Performed By: #### U CLINT, CMP, LIPID, DBIL, PHOS, MG #### [facility] [address] [place] [address] Dr. Brea Causey IG # 0.09 10e3/ul Critically high 0.00-0.03 [facility] Comment on above: Performed By: #### U CLINT, CMP, LIPID, DBIL, PHOS, MG #### [facility] [address] [place] [address] Dr. Brea Causey IG % 1.4 % Critically high 0.0-0.5 [facility] Comment on above: Performed By: #### U CLINT, CMP, LIPID, DBIL, PHOS, MG #### [facility] [address] [place] [address] Dr. Brea Causey LYMPH # 1.0 103/ul Critically low 1.2-3.8 [facility] Comment on above: Performed By: #### U CLINT, CMP, LIPID, DBIL, PHOS, MG #### [facility] [address] [place] [address] Dr. Brea Causey Lymphocytes/100 WBC (Bld) 15.2 % Critically low 20.5-60.0 [facility] Comment on above: Performed By: #### U CLINT, CMP, LIPID, DBIL, PHOS, MG #### [facility] [address] [place] [address] Dr. Brea Causey MANUAL DIFF REQ NO Normal [facility] Comment on above: Performed By: #### U CLINT, CMP, LIPID, DBIL, PHOS, MG #### [facility] [address] [place] [address] Dr. Brea Causey MCH (RBC) [Entitic mass] 28.8 pg Normal 25.9-34.0 [facility] Comment on above: Performed By: #### U CLINT, CMP, LIPID, DBIL, PHOS, MG #### [facility] [address] [place] [address] Dr. Brea Causey MCHC (RBC) [Mass/Vol] 33.3 g/dL Normal 29.9-35.2 [facility] Comment on above: Performed By: #### U CLINT, CMP, LIPID, DBIL, PHOS, MG #### [facility] [address] [place] [address] Dr. Brea Causey MCV (RBC) [Entitic vol] 86.5 fL Normal 80.0-94.0 [facility] Comment on above: Performed By: #### U CLINT, CMP, LIPID, DBIL, PHOS, MG #### [facility] [address] [place] [address] Dr. Brea Causey MONO # 0.7 103/ul Normal 0.3-0.8 [facility] Comment on above: Performed By: #### U CLINT, CMP, LIPID, DBIL, PHOS, MG #### [facility] [address] [place] [address] Dr. Brea Causey Monocytes/100 WBC (Bld) 10.0 % Normal 1.7-12.0 [facility] Comment on above: Performed By: #### U CLINT, CMP, LIPID, DBIL, PHOS, MG #### [facility] [address] [place] [address] Dr. Brea Causey NEUT # 4.6 103/ul Normal 1.4-6.5 [facility] Comment on above: Performed By: #### U CLINT, CMP, LIPID, DBIL, PHOS, MG #### [facility] [address] [place] [address] Dr. Brea Causey Neutrophils/100 WBC (Bld) 70.3 % Normal 43.0-75.0 [facility] Comment on above: Performed By: #### U CLINT, CMP, LIPID, DBIL, PHOS, MG #### [facility] [address] [place] [address] Dr. Brea Causey Platelet mean volume (Bld) [Entitic vol] 8.8 fL Critically low 9.5-13.5 [facility] Comment on above: Performed By: #### U CLINT, CMP, LIPID, DBIL, PHOS, MG #### [facility] [address] [place] [address] Dr. Brea Causey PLT 240 103/ul Normal 150-450 [facility] Comment on above: Performed By: #### U CLINT, CMP, LIPID, DBIL, PHOS, MG #### [facility] [address] [place] [address] Dr. Brea Causey RBC 4.30 106/ul Critically low 4.70-6.10 [facility] Comment on above: Performed By: #### U CLINT, CMP, LIPID, DBIL, PHOS, MG #### [facility] [address] [place] [address] Dr. Brea Causey WBC 6.5 103/ul Normal 4.0-11.0 [facility] Comment on above: Performed By: #### U CLINT, CMP, LIPID, DBIL, PHOS, MG #### [facility] [address] [place] [address] Dr. Brea Causey LIPID PROFILEon 07-04-2022 CHOL-HDL RATIO NORM SEE BELOW Normal [facility] Comment on above: Result Comment: 3.3 - 4.4 LOW RISK 4.4 - 7.1 AVERAGE RISK 7.1 - 11.0 MODERATE RISK >11.0 HIGH RISK Performed By: #### U CLINT, CMP, LIPID, DBIL, PHOS, MG #### [facility] [address] [address] [address] Brea Causey Cholesterol [Mass/Vol] 86 mg/dL Normal <=200 [facility] Comment on above: Performed By: #### U CLINT, CMP, LIPID, DBIL, PHOS, MG #### [facility] [address] [place] [address] Dr. Brea Causey Cholesterol in HDL [Mass/Vol] 44 mg/dL Normal 40-60 [facility] Comment on above: Performed By: #### U CLINT, CMP, LIPID, DBIL, PHOS, MG #### [facility] [address] [address] [address] Brea Causey Cholesterol in LDL [Mass/Vol] 28.0 mg/dL Normal [facility] [facility] Comment on above: Performed By: #### U CLINT, CMP, LIPID, DBIL, PHOS, MG #### [facility] [address] [place] [address] Dr. Brea Causey Cholesterol.total/Cho lesterol in HDL [Mass ratio] 2.0 {ratio} Normal [facility] Comment on above: Performed By: #### U CLINT, CMP, LIPID, DBIL, PHOS, MG #### [facility] [address] [address] [address] Brea Causey HDL NORMAL > or = 60 mg/dl - LO W CARDIOVASCULAR RISK <40 mg/dl - HIGH CARDIOVASCULAR RISK Normal [facility] Comment on above: Performed By: #### U CLINT, CMP, LIPID, DBIL, PHOS, MG #### [facility] [address] [place] [address] Dr. Brea Causey LDL CALC NORMAL SEE BELOW Normal [facility] Comment on above: Result Comment: <100 mg/dl OPTIMAL 100 - 129 mg/dl NEAR OR ABOVE OPTIMAL 130 - 159 mg/dl BORDERLINE HIGH 160 - 189 mg/dl HIGH >190 mg/dl VERY HIGH Performed By: #### U CLINT, CMP, LIPID, DBIL, PHOS, MG #### [facility] [address] [place] [address] Dr. Brea Causey Triglyceride [Mass/Vol] 70 mg/dL Normal <=150 [facility] Comment on above: Performed By: #### U CLINT, CMP, LIPID, DBIL, PHOS, MG #### [facility] [address] [address] [address] Brea Causey VLDL CALC 14.0 mg/dL Normal [facility] Comment on above: Performed By: #### U CLINT, CMP, LIPID, DBIL, PHOS, MG #### [facility] [address] [place] [address] Dr. Brea Causey MAGNESIUMon 07-04-2022 Magnesium [Mass/Vol] 1.4 mg/dL Critically low 1.8-2.4 [facility] Comment on above: Performed By: #### U CLINT, CMP, LIPID, DBIL, PHOS, MG #### [facility] [address] [place] [address] Dr. Brea Causey PHOSPHORUSon 07-04-2022 Phosphate [Mass/Vol] 4.1 mg/dL Normal 2.6-4.7 [facility] Comment on above: Performed By: #### U CLINT, CMP, LIPID, DBIL, PHOS, MG #### [facility] [address] [place] [address] Dr. Brea Causey PROF 14(COMP METB)on 023 Albumin [Mass/Vol] 4.0 g/dL Normal 3.4-5.0 [facility] Comment on above: Performed By: #### B KVIRUS #### [facility] [address] [place] [address] Dr. Brea Causey Albumin/Globulin [Mass ratio] 1.3 {ratio} Normal [facility] Comment on above: Performed By: #### B KVIRUS #### [facility] [address] [address] [address] Brea Causey ALP [Catalytic activity/Vol] 212 U/L Critically high 46-116 [facility] Comment on above: Performed By: #### B KVIRUS #### [facility] [address] [address] [address] Brea Causey ALT [Catalytic activity/Vol] 31 U/L Normal 16-63 [facility] Comment on above: Performed By: #### B KVIRUS #### [facility] [address] [place] [address] Dr. Brea Causey Anion gap [Moles/Vol] 11.9 mmol/L Normal [facility] Comment on above: Performed By: #### B KVIRUS #### [facility] [address] [place] [address] Dr. Brea Causey AST [Catalytic activity/Vol] 21 U/L Normal 15-37 [facility] Comment on above: Performed By: #### B KVIRUS #### [facility] [address] [place] [address] Dr. Brea Causey Bilirubin [Mass/Vol] 0.3 mg/dL Normal 0.2-1.0 [facility] Comment on above: Performed By: #### B KVIRUS #### [facility] [address] [place] [address] Dr. Brea Causey Calcium [Mass/Vol] 8.1 mg/dL Critically low 8.5-10.1 [facility] Comment on above: Performed By: #### B KVIRUS #### [facility] [address] [place] [address] Dr. Brea Causey Chloride [Moles/Vol] 97 mmol/L Critically low 98-107 [facility] Comment on above: Performed By: #### B KVIRUS #### [facility] [address] [place] [address] Dr. Brea Causey CO2 [Moles/Vol] 26.8 mmol/L Normal 21.0-32.0 [facility] Comment on above: Performed By: #### B KVIRUS #### [facility] [address] [place] [address] Dr. Brea Causey Creatinine [Mass/Vol] 0.99 mg/dL Normal 0.70-1.30 [facility] Comment on above: Performed By: #### B KVIRUS #### [facility] [address] [place] [address] Dr. Brea Causey EGFR-AF INDONESIAN >60 Normal >=60 [facility] Comment on above: Performed By: #### B KVIRUS #### [facility] [address] [place] [address] Dr. Brea Causey EGFR-NON AF INDONESIAN >60 Normal >=60 [facility] Comment on above: Performed By: #### B KVIRUS #### [facility] [address] [place] [address] Dr. Brea Causey Globulin (S) [Mass/Vol] 3.2 g/dL Normal [facility] Comment on above: Performed By: #### B KVIRUS #### [facility] [address] [place] [address] Dr. Brea Causey Glucose [Mass/Vol] 169 mg/dL Critically high 74-106 [facility] Comment on above: Performed By: #### B KVIRUS #### [facility] [address] [place] [address] Dr. Brea Causey Potassium [Moles/Vol] 4.7 mmol/L Normal 3.5-5.1 [facility] Comment on above: Performed By: #### B KVIRUS #### [facility] [address] [place] [address] Dr. Brea Causey Protein [Mass/Vol] 7.2 g/dL Normal 6.4-8.2 [facility] Comment on above: Performed By: #### B KVIRUS #### [facility] [address] [place] [address] Dr. Brea Causey Sodium [Moles/Vol] 131 mmol/L Critically low 136-145 [facility] Comment on above: Performed By: #### B KVIRUS #### [facility] [address] [place] [address] Dr. Brea Causey Urea nitrogen [Mass/Vol] 9.0 mg/dL Normal 7.0-18.0 [facility] Comment on above: Performed By: #### B KVIRUS #### [facility] [address] [address] [address] Brea Causey Urea nitrogen/Creatinine [Mass ratio] 9.1 mg/mg Normal [facility] Comment on above: Performed By: #### B KVIRUS #### [facility] [address] [id number] Brea Causey URIC ACID SERUMon 07-04-2022 Urate [Mass/Vol] 6.1 mg/dL Normal 3.5-7.2 [facility] Comment on above: Performed By: #### U CLINT, CMP, LIPID, DBIL, PHOS, MG #### [facility] [address] [address] [address] Brea Causey TESTOSTERONE, FREE,DIRECT, T OTALon 05-28-2022 Free Testosterone(Direct) 5.9 pg/mL Critically low 6.6-18.1 [facility] Comment on above: Result Comment: Perf ormed at: BN Performed By: #### U CLINT, CMP, LIPID, DBIL, PHOS, MG #### [facility] [address] [place] [address] Dr. Brea Causey Testosterone [Mass/Vol] 513 ng/dL Normal 264-916 [facility] Comment on above: Result Comment: Adul t male reference interval is based on a population of healthy nonobese males (BMI <30) between 19 and 39 years old. Steven et.al. JCEM 2017,102;2251-5649. PMID: [id number]. Performed at: CB Performed By: #### U CLINT, CMP, LIPID, DBIL, PHOS, MG #### [facility] [address] [place] [address] Dr. Brea Causey FK506 (TACROLIMUS) WHOLE BLO ODon 05-26-2022 Tacrolimus (FK506), Blood 3.9 ng/mL Normal 2.0-20.0 [facility] Comment on above: Result Comment: Trou gh (immediately following transplant) 15.0 . Trough (steady state, 2 weeks or more after transplant): 3.0 - 8.0 . Performed by LC-MS/MS technology. Performed By: #### B KVIRUS #### [facility] [address] [place] [address] Dr. Brea Causey BK VIRUS PCR QUANTon 023 BKV DNA QUANT PCR PLASMA Negative Normal Negative [facility] Comment on above: Result Comment: No B K DNA detected. . The linear range of the assay is 22 - 100,000,000 IU/mL. Performed By: #### U CLINT, CMP, LIPID, DBIL, PHOS, MG #### [facility] [address] [place] [address] Dr. Brea Causey Log10 BKV DNA Plasma Normal [facility] Comment on above: Performed By: #### U CLINT, CMP, LIPID, DBIL, PHOS, MG #### [facility] [address] [place] [address] Dr. Brea Causey BILIRUBIN CONJUGATED (DIRECT )on 05-23-2022 BILI, CONJUGATED 0.2 mg/dL Normal 0.0-0.2 [facility] Comment on above: Performed By: #### C BC #### [facility] [address] [place] [address] Dr. Brea Causey CBC AUTO DIFFon 05-23-2022 BASO # 0.0 103/ul Normal 0.0-0.1 [facility] Comment on above: Performed By: #### B KVIRUS #### [facility] [address] [place] [address] Dr. Brea Causey Basophils/100 WBC (Bld) 0.6 % Normal 0.2-2.0 [facility] Comment on above: Performed By: #### B KVIRUS #### [facility] [address] [place] [address] Dr. Brea Causey EO # 0.1 103/ul Normal 0.0-0.7 [facility] Comment on above: Performed By: #### B KVIRUS #### [facility] [address] [place] [address] Dr. Brea Causey Eosinophils/100 WBC (Bld) 1.7 % Normal 0.9-7.0 [facility] Comment on above: Performed By: #### B KVIRUS #### [facility] [address] [place] [address] Dr. Brea Causey Erythrocyte distribution width (RBC) [Ratio] 13.4 % Normal 11.0-15.0 [facility] Comment on above: Performed By: #### B KVIRUS #### [facility] [address] [place] [address] Dr. Brea Causey Hematocrit (Bld) [Volume fraction] 38.8 % Critically low 42.0-54.0 [facility] Comment on above: Performed By: #### B KVIRUS #### [facility] [address] [place] [address] Dr. Brea Causey Hemoglobin (Bld) [Mass/Vol] 12.4 g/dL Critically low 14.0-18.0 [facility] Comment on above: Performed By: #### B KVIRUS #### [facility] [address] [place] [address] Dr. Brea Causey IG # 0.07 10e3/ul Critically high 0.00-0.03 [facility] Comment on above: Performed By: #### B KVIRUS #### [facility] [address] [place] [address] Dr. Brea Causey IG % 1.1 % Critically high 0.0-0.5 [facility] Comment on above: Performed By: #### B KVIRUS #### [facility] [address] [place] [address] Dr. Brea Causey LYMPH # 0.9 103/ul Critically low 1.2-3.8 [facility] Comment on above: Performed By: #### B KVIRUS #### [facility] [address] [place] [address] Dr. Brea Causey Lymphocytes/100 WBC (Bld) 14.1 % Critically low 20.5-60.0 [facility] Comment on above: Performed By: #### B KVIRUS #### [facility] [address] [place] [address] Dr. Brea Causey MANUAL DIFF REQ NO Normal [facility] Comment on above: Performed By: #### B KVIRUS #### [facility] [address] [place] [address] Dr. Brea Causey MCH (RBC) [Entitic mass] 29.3 pg Normal 25.9-34.0 [facility] Comment on above: Performed By: #### B KVIRUS #### [facility] [address] [place] [address] Dr. Brea Causey MCHC (RBC) [Mass/Vol] 32.0 g/dL Normal 29.9-35.2 [facility] Comment on above: Performed By: #### B KVIRUS #### [facility] [address] [place] [address] Dr. Brea Causey MCV (RBC) [Entitic vol] 91.7 fL Normal 80.0-94.0 [facility] Comment on above: Performed By: #### B KVIRUS #### [facility] [address] [place] [address] Dr. Brea Causey MONO # 0.7 103/ul Normal 0.3-0.8 [facility] Comment on above: Performed By: #### B KVIRUS #### [facility] [address] [place] [address] Dr. Brea Causey Monocytes/100 WBC (Bld) 10.0 % Normal 1.7-12.0 [facility] Comment on above: Performed By: #### B KVIRUS #### [facility] [address] [place] [address] Dr. Brea Causey NEUT # 4.7 103/ul Normal 1.4-6.5 [facility] Comment on above: Performed By: #### B KVIRUS #### [facility] [address] [place] [address] Dr. Brea Causey Neutrophils/100 WBC (Bld) 72.5 % Normal 43.0-75.0 [facility] Comment on above: Performed By: #### B KVIRUS #### [facility] [address] [place] [address] Dr. Brea Causey Platelet mean volume (Bld) [Entitic vol] 9.4 fL Critically low 9.5-13.5 [facility] Comment on above: Performed By: #### B KVIRUS #### [facility] [address] [place] [address] Dr. Brea Causey PLT 256 103/ul Normal 150-450 [facility] Comment on above: Performed By: #### B KVIRUS #### [facility] [address] [address] [address] Brea Causey RBC 4.23 106/ul Critically low 4.70-6.10 [facility] Comment on above: Performed By: #### B KVIRUS #### [facility] [address] [place] [address] Dr. Brea Causey WBC 6.5 103/ul Normal 4.0-11.0 [facility] Comment on above: Performed By: #### B KVIRUS #### [facility] [address] [place] [address] Dr. Brea Causey GLYCOHEMOGLOBIN A1Con 2022 ADA RECOMMENDATION SEE BELOW Normal [facility] Comment on above: Result Comment: ADA RECOMMENDED LIMIT 4.0 - 6.0 ADA THERAPEUTIC TARGET < 7.0 ACTION SUGGESTED > 7.0 Performed By: #### U CLINT, CMP, LIPID, DBIL, PHOS, MG #### [facility] [address] [place] [address] Dr. Brea Causey Glucose [Mass/Vol] 160 mg/dL Normal [facility] Comment on above: Performed By: #### U CLINT, CMP, LIPID, DBIL, PHOS, MG #### [facility] [address] [place] [address] Dr. Brea Causey HbA1c (Bld) [Mass fraction] 7.2 % Critically high 4.5-6.2 [facility] Comment on above: Performed By: #### U CLINT, CMP, LIPID, DBIL, PHOS, MG #### [facility] [address] [place] [address] Dr. Brea Causey LIPID PROFILEon 05-23-2022 CHOL-HDL RATIO NORM SEE BELOW Normal [facility] Comment on above: Result Comment: 3.3 - 4.4 LOW RISK 4.4 - 7.1 AVERAGE RISK 7.1 - 11.0 MODERATE RISK >11.0 HIGH RISK Performed By: #### C BC #### [facility] [address] [address] [address] Brea Causey Cholesterol [Mass/Vol] 87 mg/dL Normal <=200 [facility] Comment on above: Performed By: #### C BC #### [facility] [address] [address] [address] Brea Causey Cholesterol in HDL [Mass/Vol] 54 mg/dL Normal 40-60 [facility] Comment on above: Performed By: #### C BC #### [facility] [address] [address] [address] Brea Causey Cholesterol in LDL [Mass/Vol] 24.6 mg/dL Normal [facility] Comment on above: Performed By: #### C BC #### [facility] [address] [address] [address] Brea Causey Cholesterol.total/Cho lesterol in HDL [Mass ratio] 1.6 {ratio} Normal [facility] Comment on above: Performed By: #### C BC #### [facility] [address] [address] [address] Brea Causey HDL NORMAL > or = 60 mg/dl - LO W CARDIOVASCULAR RISK <40 mg/dl - HIGH CARDIOVASCULAR RISK Normal [facility] Comment on above: Performed By: #### C BC #### [facility] [address] [address] [address] Brea Causey LDL CALC NORMAL SEE BELOW Normal [facility] Comment on above: Result Comment: <100 mg/dl OPTIMAL 100 - 129 mg/dl NEAR OR ABOVE OPTIMAL 130 - 159 mg/dl BORDERLINE HIGH 160 - 189 mg/dl HIGH >190 mg/dl VERY HIGH Performed By: #### C BC #### [facility] [address] [address] [address] Brea Causey Triglyceride [Mass/Vol] 42 mg/dL Normal <=150 [facility] Comment on above: Performed By: #### C BC #### [facility] [address] [place] [address] Dr. Brea Causey VLDL CALC 8.4 mg/dL Normal [facility] Comment on above: Performed By: #### C BC #### [facility] [address] [place] [address] Dr. Brea Causey MAGNESIUMon 05-23-2022 Magnesium [Mass/Vol] 1.4 mg/dL Critically low 1.8-2.4 [facility] Comment on above: Performed By: #### C BC #### [facility] [address] [place] [address] Dr. Brea Causey PHOSPHORUSon 05-23-2022 Phosphate [Mass/Vol] 3.6 mg/dL Normal 2.6-4.7 [facility] Comment on above: Performed By: #### C BC #### [facility] [address] [place] [address] Dr. Brea Causey PROF 14(COMP METB)on 023 Albumin [Mass/Vol] 3.9 g/dL Normal 3.4-5.0 [facility] Comment on above: Performed By: #### C BC #### [facility] [address] [place] [address] Dr. Brea Causey Albumin/Globulin [Mass ratio] 1.2 {ratio} Normal [facility] Comment on above: Performed By: #### C BC #### [facility] [address] [place] [address] Dr. Brea Causey ALP [Catalytic activity/Vol] 190 U/L Critically high 46-116 [facility] Comment on above: Performed By: #### C BC #### [facility] [address] [place] [address] Dr. Brea Causey ALT [Catalytic activity/Vol] 26 U/L Normal 16-63 [facility] Comment on above: Performed By: #### C BC #### [facility] [address] [place] [address] Dr. Brea Causey Anion gap [Moles/Vol] 13.1 mmol/L Normal [facility] Comment on above: Performed By: #### C BC #### [facility] [address] [address] [address] Brea Causey AST [Catalytic activity/Vol] 18 U/L Normal 15-37 [facility] Comment on above: Performed By: #### C BC #### [facility] [address] [address] [address] Brea Causey Bilirubin [Mass/Vol] 0.4 mg/dL Normal 0.2-1.0 [facility] Comment on above: Performed By: #### C BC #### [facility] [address] [address] [address] Brea Causey Calcium [Mass/Vol] 7.8 mg/dL Critically low 8.5-10.1 [facility] Comment on above: Performed By: #### C BC #### [facility] [address] [address] [address] Brea Causey Chloride [Moles/Vol] 95 mmol/L Critically low 98-107 [facility] Comment on above: Performed By: #### C BC #### [facility] [address] [address] [address] Brea Causey CO2 [Moles/Vol] 28.8 mmol/L Normal 21.0-32.0 [facility] Comment on above: Performed By: #### C BC #### [facility] [address] [address] [address] Brea Causey Creatinine [Mass/Vol] 1.03 mg/dL Normal 0.70-1.30 [facility] Comment on above: Performed By: #### C BC #### [facility] [address] [address] [address] Brea Causey EGFR-AF INDONESIAN >60 Normal >=60 [facility] Comment on above: Performed By: #### C BC #### [facility] [address] [address] [address] Brea Causey EGFR-NON AF INDONESIAN >60 Normal >=60 [facility] Comment on above: Performed By: #### C BC #### [facility] [address] [address] [address] Brea Causey Globulin (S) [Mass/Vol] 3.2 g/dL Normal [facility] Comment on above: Performed By: #### C BC #### [facility] [address] [address] [address] Brea Causey Glucose [Mass/Vol] 155 mg/dL Critically high 74-106 [facility] Comment on above: Performed By: #### C BC #### [facility] [address] [address] [address] Brea Causey Potassium [Moles/Vol] 4.9 mmol/L Normal 3.5-5.1 [facility] Comment on above: Performed By: #### C BC #### [facility] [address] [address] [address] Brea Causey Protein [Mass/Vol] 7.1 g/dL Normal 6.4-8.2 [facility] Comment on above: Performed By: #### C BC #### [facility] [address] [address] [address] Brea Causey Sodium [Moles/Vol] 132 mmol/L Critically low 136-145 [facility] Comment on above: Performed By: #### C BC #### [facility] [address] [address] [address] Brea Causey Urea nitrogen [Mass/Vol] 8.0 mg/dL Normal 7.0-18.0 [facility] Comment on above: Performed By: #### C BC #### [facility] [address] [address] [address] Brea Causey Urea nitrogen/Creatinine [Mass ratio] 7.8 mg/mg Normal [facility] Comment on above: Performed By: #### C BC #### [facility] [address] [place] [address] Dr. Brea Causey URIC ACID SERUMon 05-23-2022 Urate [Mass/Vol] 5.6 mg/dL Normal 3.5-7.2 [facility] Comment on above: Performed By: #### C BC #### [facility] [address] [place] [address] Dr. Brea Causey TESTOSTERONE, FREE,DIRECT, T OTALon 05-03-2022 Free Testosterone(Direct) 7.4 pg/mL Normal 6.6-18.1 [facility] Comment on above: Result Comment: Perf ormed at: BN Performed By: #### U CLINT, CMP, LIPID, DBIL, PHOS, MG #### [facility] [address] [address] [address] Brea Causey Testosterone [Mass/Vol] 494 ng/dL Normal 264-916 [facility] Comment on above: Result Comment: Adul t male reference interval is based on a population of healthy nonobese males (BMI <30) between 19 and 39 years old. daniel Harris.al. JCEM 2017,102;[id number]. PMID: [id number]. Performed at: CB Performed By: #### U CLINT, CMP, LIPID, DBIL, PHOS, MG #### [facility] [address] [place] [address] Dr. Brea Causey FK506 (TACROLIMUS) WHOLE BLO ODon 05-02-2022 Tacrolimus (FK506), Blood 4.3 ng/mL Normal 2.0-20.0 [facility] Comment on above: Result Comment: Trou gh (immediately following transplant) 15.0 . Trough (steady state, 2 weeks or more after transplant): 3.0 - 8.0 . Performed by LC-MS/MS technology. Performed By: #### C BC #### [facility] [address] [place] [address] Dr. Brea Causey BILIRUBIN CONJUGATED (DIRECT )on 04-30-2022 BILI, CONJUGATED 0.1 mg/dL Normal 0.0-0.2 [facility] Comment on above: Performed By: #### U CLINT, CMP, LIPID, DBIL, PHOS, MG #### [facility] [address] [place] [address] Dr. Brea Causey CBC AUTO DIFFon 04-30-2022 BASO # 0.0 103/ul Normal 0.0-0.1 [facility] Comment on above: Performed By: #### U CLINT, CMP, LIPID, DBIL, PHOS, MG #### [facility] [address] [place] [address] Dr. Brea Causey Basophils/100 WBC (Bld) 0.5 % Normal 0.2-2.0 [facility] Comment on above: Performed By: #### U CLINT, CMP, LIPID, DBIL, PHOS, MG #### [facility] [address] [place] [address] Dr. Brea Causey EO # 0.1 103/ul Normal 0.0-0.7 [facility] Comment on above: Performed By: #### U CLINT, CMP, LIPID, DBIL, PHOS, MG #### [facility] [address] [place] [address] Dr. Brea Causey Eosinophils/100 WBC (Bld) 2.1 % Normal 0.9-7.0 [facility] Comment on above: Performed By: #### U CLINT, CMP, LIPID, DBIL, PHOS, MG #### [facility] [address] [place] [address] Dr. Brea Causey Erythrocyte distribution width (RBC) [Ratio] 13.2 % Normal 11.0-15.0 [facility] Comment on above: Performed By: #### U CLINT, CMP, LIPID, DBIL, PHOS, MG #### [facility] [address] [place] [address] Dr. Brea Causey Hematocrit (Bld) [Volume fraction] 37.0 % Critically low 42.0-54.0 [facility] Comment on above: Performed By: #### U CLINT, CMP, LIPID, DBIL, PHOS, MG #### [facility] [address] [place] [address] Dr. Brea Causey Hemoglobin (Bld) [Mass/Vol] 12.4 g/dL Critically low 14.0-18.0 [facility] Comment on above: Performed By: #### U CLINT, CMP, LIPID, DBIL, PHOS, MG #### [facility] [address] [place] [address] Dr. Brea Causey IG # 0.05 10e3/ul Critically high 0.00-0.03 [facility] Comment on above: Performed By: #### U CLINT, CMP, LIPID, DBIL, PHOS, MG #### [facility] [address] [address] [address] Brea Causey IG % 0.9 % Critically high 0.0-0.5 [facility] Comment on above: Performed By: #### U CLINT, CMP, LIPID, DBIL, PHOS, MG #### [facility] [address] [address] [address] Brea Causey LYMPH # 1.0 103/ul Critically low 1.2-3.8 [facility] Comment on above: Performed By: #### U CLINT, CMP, LIPID, DBIL, PHOS, MG #### [facility] [address] [place] [address] Dr. Brea Causey Lymphocytes/100 WBC (Bld) 16.4 % Critically low 20.5-60.0 [facility] Comment on above: Performed By: #### U CLINT, CMP, LIPID, DBIL, PHOS, MG #### [facility] [address] [address] [address] Brea Causey MANUAL DIFF REQ NO Normal [facility] Comment on above: Performed By: #### U CLINT, CMP, LIPID, DBIL, PHOS, MG #### [facility] [address] [place] [address] Dr. Brea Causey MCH (RBC) [Entitic mass] 29.0 pg Normal 25.9-34.0 [facility] Comment on above: Performed By: #### U CLINT, CMP, LIPID, DBIL, PHOS, MG #### [facility] [address] [address] [address] Brea Causey MCHC (RBC) [Mass/Vol] 33.5 g/dL Normal 29.9-35.2 [facility] Comment on above: Performed By: #### U CLINT, CMP, LIPID, DBIL, PHOS, MG #### [facility] [address] [place] [address] Dr. Brea Causey MCV (RBC) [Entitic vol] 86.7 fL Normal 80.0-94.0 [facility] Comment on above: Performed By: #### U CLINT, CMP, LIPID, DBIL, PHOS, MG #### [facility] [address] [place] [address] Dr. Brea Causey MONO # 0.7 103/ul Normal 0.3-0.8 [facility] Comment on above: Performed By: #### U CLINT, CMP, LIPID, DBIL, PHOS, MG #### [facility] [address] [place] [address] Dr. Brea Causey Monocytes/100 WBC (Bld) 11.6 % Normal 1.7-12.0 [facility] Comment on above: Performed By: #### U CLINT, CMP, LIPID, DBIL, PHOS, MG #### [facility] [address] [place] [address] Dr. Brea Causey NEUT # 4.0 103/ul Normal 1.4-6.5 [facility] Comment on above: Performed By: #### U CLINT, CMP, LIPID, DBIL, PHOS, MG #### [facility] [address] [place] [address] Dr. Brea Causey Neutrophils/100 WBC (Bld) 68.5 % Normal 43.0-75.0 [facility] Comment on above: Performed By: #### U CLINT, CMP, LIPID, DBIL, PHOS, MG #### [facility] [address] [place] [address] Dr. Brea Causey Platelet mean volume (Bld) [Entitic vol] 9.2 fL Critically low 9.5-13.5 [facility] Comment on above: Performed By: #### U CLINT, CMP, LIPID, DBIL, PHOS, MG #### [facility] [address] [place] [address] Dr. Brea Causey PLT 231 103/ul Normal 150-450 [facility] Comment on above: Performed By: #### U CLINT, CMP, LIPID, DBIL, PHOS, MG #### [facility] [address] [address] [address] Brea Causey RBC 4.27 106/ul Critically low 4.70-6.10 [facility] Comment on above: Performed By: #### U CLINT, CMP, LIPID, DBIL, PHOS, MG #### [facility] [address] [address] [address] Brea Causey WBC 5.9 103/ul Normal 4.0-11.0 [facility] Comment on above: Performed By: #### U CLINT, CMP, LIPID, DBIL, PHOS, MG #### [facility] [address] [address] [address] Brea Causey LIPID PROFILEon 04-30-2022 CHOL-HDL RATIO NORM SEE BELOW Normal [facility] Comment on above: Result Comment: 3.3 - 4.4 LOW RISK 4.4 - 7.1 AVERAGE RISK 7.1 - 11.0 MODERATE RISK >11.0 HIGH RISK Performed By: #### U CLINT, CMP, LIPID, DBIL, PHOS, MG #### [facility] [address] [address] [address] Brea Causey Cholesterol [Mass/Vol] 78 mg/dL Normal <=200 [facility] Comment on above: Performed By: #### U CLINT, CMP, LIPID, DBIL, PHOS, MG #### [facility] [address] [address] [address] Brea Causey Cholesterol in HDL [Mass/Vol] 41 mg/dL Normal 40-60 [facility] Comment on above: Performed By: #### U CLINT, CMP, LIPID, DBIL, PHOS, MG #### [facility] [address] [address] [address] Brea Causey Cholesterol in LDL [Mass/Vol] 17.8 mg/dL Normal [facility] Comment on above: Performed By: #### U CLINT, CMP, LIPID, DBIL, PHOS, MG #### [facility] [address] [address] [address] Brea Causey Cholesterol.total/Cho lesterol in HDL [Mass ratio] 1.9 {ratio} Normal [facility] Comment on above: Performed By: #### U CLINT, CMP, LIPID, DBIL, PHOS, MG #### [facility] [address] [place] [address] Dr. Brea Causey HDL NORMAL > or = 60 mg/dl - LO W CARDIOVASCULAR RISK <40 mg/dl - HIGH CARDIOVASCULAR RISK Normal [facility] Comment on above: Performed By: #### U CLINT, CMP, LIPID, DBIL, PHOS, MG #### [facility] [address] [address] [address] Brea Causey LDL CALC NORMAL SEE BELOW Normal [facility] Comment on above: Result Comment: <100 mg/dl OPTIMAL 100 - 129 mg/dl NEAR OR ABOVE OPTIMAL 130 - 159 mg/dl BORDERLINE HIGH 160 - 189 mg/dl HIGH >190 mg/dl VERY HIGH Performed By: #### U CLINT, CMP, LIPID, DBIL, PHOS, MG #### [facility] [address] [place] [address] Dr. Brea Causey Triglyceride [Mass/Vol] 96 mg/dL Normal <=150 [facility] Comment on above: Performed By: #### U CLINT, CMP, LIPID, DBIL, PHOS, MG #### [facility] [address] [place] [address] Dr. Brea Causey VLDL CALC 19.2 mg/dL Normal [facility] Comment on above: Performed By: #### U CLINT, CMP, LIPID, DBIL, PHOS, MG #### [facility] [address] [place] [address] Dr. Brea Causey MAGNESIUMon 04-30-2022 Magnesium [Mass/Vol] 1.7 mg/dL Critically low 1.8-2.4 [facility] Comment on above: Performed By: #### U CLINT, CMP, LIPID, DBIL, PHOS, MG #### [facility] [address] [place] [address] Dr. Brea Causey PHOSPHORUSon 04-30-2022 Phosphate [Mass/Vol] 3.6 mg/dL Normal 2.6-4.7 [facility] Comment on above: Performed By: #### U CLINT, CMP, LIPID, DBIL, PHOS, MG #### [facility] [address] [place] [address] Dr. Brea Causey PROF 14(COMP METB)on 022 Albumin [Mass/Vol] 4.0 g/dL Normal 3.4-5.0 [facility] Comment on above: Performed By: #### U CLINT, CMP, LIPID, DBIL, PHOS, MG #### [facility] [address] [place] [address] Dr. Brea Causey Albumin/Globulin [Mass ratio] 1.3 {ratio} Normal [facility] Comment on above: Performed By: #### U CLINT, CMP, LIPID, DBIL, PHOS, MG #### [facility] [address] [place] [address] Dr. Brea Causey ALP [Catalytic activity/Vol] 196 U/L Critically high 46-116 [facility] Comment on above: Performed By: #### U CLINT, CMP, LIPID, DBIL, PHOS, MG #### [facility] [address] [place] [address] Dr. Brea Causey ALT [Catalytic activity/Vol] 21 U/L Normal 16-63 [facility] Comment on above: Performed By: #### U CLINT, CMP, LIPID, DBIL, PHOS, MG #### [facility] [address] [place] [address] Dr. Brea Causey Anion gap [Moles/Vol] 10.5 mmol/L Normal [facility] Comment on above: Performed By: #### U CLINT, CMP, LIPID, DBIL, PHOS, MG #### [facility] [address] [place] [address] Dr. Brea Causey AST [Catalytic activity/Vol] 16 U/L Normal 15-37 [facility] Comment on above: Performed By: #### U CLINT, CMP, LIPID, DBIL, PHOS, MG #### [facility] [address] [place] [address] Dr. Brea Causey Bilirubin [Mass/Vol] 0.3 mg/dL Normal 0.2-1.0 [facility] Comment on above: Performed By: #### U CLINT, CMP, LIPID, DBIL, PHOS, MG #### [facility] [address] [address] [address] Brea Causey Calcium [Mass/Vol] 8.6 mg/dL Normal 8.5-10.1 [facility] Comment on above: Performed By: #### U CLINT, CMP, LIPID, DBIL, PHOS, MG #### [facility] [address] [address] [address] Brea Causey Chloride [Moles/Vol] 95 mmol/L Critically low 98-107 [facility] Comment on above: Performed By: #### U CLINT, CMP, LIPID, DBIL, PHOS, MG #### [facility] [address] [address] [address] Brea Causey CO2 [Moles/Vol] 30.9 mmol/L Normal 21.0-32.0 [facility] Comment on above: Performed By: #### U CLINT, CMP, LIPID, DBIL, PHOS, MG #### [facility] [address] [address] [address] Brea Causey Creatinine [Mass/Vol] 1.00 mg/dL Normal 0.70-1.30 [facility] Comment on above: Performed By: #### U CLINT, CMP, LIPID, DBIL, PHOS, MG #### [facility] [address] [address] [address] Brea Causey EGFR-AF INDONESIAN >60 Normal >=60 [facility] Comment on above: Performed By: #### U CLINT, CMP, LIPID, DBIL, PHOS, MG #### [facility] [address] [address] [address] Brea Causey EGFR-NON AF INDONESIAN >60 Normal >=60 [facility] Comment on above: Performed By: #### U CLINT, CMP, LIPID, DBIL, PHOS, MG #### [facility] [address] [address] [address] Brea Causey Globulin (S) [Mass/Vol] 3.2 g/dL Normal [facility] Comment on above: Performed By: #### U CLINT, CMP, LIPID, DBIL, PHOS, MG #### [facility] [address] [address] [address] Brea Causey Glucose [Mass/Vol] 160 mg/dL Critically high 74-106 [facility] Comment on above: Performed By: #### U CLINT, CMP, LIPID, DBIL, PHOS, MG #### [facility] [address] [place] [address] Dr. Brea Causey Potassium [Moles/Vol] 5.4 mmol/L Critically high 3.5-5.1 [facility] Comment on above: Performed By: #### U CLINT, CMP, LIPID, DBIL, PHOS, MG #### [facility] [address] [place] [address] Dr. Brea Causey Protein [Mass/Vol] 7.2 g/dL Normal 6.4-8.2 [facility] Comment on above: Performed By: #### U CLINT, CMP, LIPID, DBIL, PHOS, MG #### [facility] [address] [place] [address] Dr. Brea Causey Sodium [Moles/Vol] 131 mmol/L Critically low 136-145 [facility] Comment on above: Performed By: #### U CLINT, CMP, LIPID, DBIL, PHOS, MG #### [facility] [address] [place] [address] Dr. Brea Causey Urea nitrogen [Mass/Vol] 11.0 mg/dL Normal 7.0-18.0 [facility] Comment on above: Performed By: #### U CLINT, CMP, LIPID, DBIL, PHOS, MG #### [facility] [address] [place] [address] Dr. Brea Causey Urea nitrogen/Creatinine [Mass ratio] 11.0 mg/mg Normal [facility] Comment on above: Performed By: #### U CLINT, CMP, LIPID, DBIL, PHOS, MG #### [facility] [address] [place] [address] Dr. Brea Causey URIC ACID SERUMon 04-30-2022 Urate [Mass/Vol] 5.9 mg/dL Normal 3.5-7.2 [facility] Comment on above: Performed By: #### U CLINT, CMP, LIPID, DBIL, PHOS, MG #### [facility] [address] [place] [address] Dr. Brea Causey FK506 (TACROLIMUS) WHOLE BLO ODon 04-06-2022 Tacrolimus (FK506), Blood 3.0 ng/mL Normal 2.0-20.0 [facility] Comment on above: Result Comment: Trou gh (immediately following transplant) 15.0 . Trough (steady state, 2 weeks or more after transplant): 3.0 - 8.0 . Performed by LC-MS/MS technology. Performed By: #### U CLINT, CMP, LIPID, DBIL, PHOS, MG #### [facility] [address] [place] [address] Dr. Brea Causey BILIRUBIN CONJUGATED (DIRECT )on 04-03-2022 BILI, CONJUGATED 0.1 mg/dL Normal 0.0-0.2 [facility] Comment on above: Performed By: #### U CLINT, CMP, LIPID, DBIL, PHOS, MG #### [facility] [address] [place] [address] Dr. Brea Causey CBC AUTO DIFFon 04-03-2022 BASO # 0.0 103/ul Normal 0.0-0.1 [facility] Comment on above: Performed By: #### U CLINT, CMP, LIPID, DBIL, PHOS, MG #### [facility] [address] [place] [address] Dr. Brea Causey Basophils/100 WBC (Bld) 0.5 % Normal 0.2-2.0 [facility] Comment on above: Performed By: #### U CLINT, CMP, LIPID, DBIL, PHOS, MG #### [facility] [address] [place] [address] Dr. Brea Causey EO # 0.1 103/ul Normal 0.0-0.7 [facility] Comment on above: Performed By: #### U CLINT, CMP, LIPID, DBIL, PHOS, MG #### [facility] [address] [address] [address] Brea Causey Eosinophils/100 WBC (Bld) 2.5 % Normal 0.9-7.0 [facility] Comment on above: Performed By: #### U CLINT, CMP, LIPID, DBIL, PHOS, MG #### [facility] [address] [place] [address] Dr. Brea Causey Erythrocyte distribution width (RBC) [Ratio] 13.3 % Normal 11.0-15.0 [facility] Comment on above: Performed By: #### U CLINT, CMP, LIPID, DBIL, PHOS, MG #### [facility] [address] [place] [address] Dr. Brea Causye Hematocrit (Bld) [Volume fraction] 36.4 % Critically low 42.0-54.0 [facility] Comment on above: Performed By: #### U CLINT, CMP, LIPID, DBIL, PHOS, MG #### [facility] [address] [place] [address] Dr. Brea Causey Hemoglobin (Bld) [Mass/Vol] 12.3 g/dL Critically low 14.0-18.0 [facility] Comment on above: Performed By: #### U CLINT, CMP, LIPID, DBIL, PHOS, MG #### [facility] [address] [place] [address] Dr. Brea Causey IG # 0.03 10e3/ul Normal 0.00-0.03 [facility] Comment on above: Performed By: #### U CLINT, CMP, LIPID, DBIL, PHOS, MG #### [facility] [address] [place] [address] Dr. Brea Causey IG % 0.5 % Normal 0.0-0.5 [facility] Comment on above: Performed By: #### U CLINT, CMP, LIPID, DBIL, PHOS, MG #### [facility] [address] [place] [address] Dr. Brea Causey LYMPH # 0.9 103/ul Critically low 1.2-3.8 [facility] Comment on above: Performed By: #### U CLINT, CMP, LIPID, DBIL, PHOS, MG #### [facility] [address] [address] [address] Brea Causey Lymphocytes/100 WBC (Bld) 16.9 % Critically low 20.5-60.0 [facility] Comment on above: Performed By: #### U CLINT, CMP, LIPID, DBIL, PHOS, MG #### [facility] [address] [place] [address] Dr. Brea Causey MANUAL DIFF REQ NO Normal [facility] Comment on above: Performed By: #### U CLINT, CMP, LIPID, DBIL, PHOS, MG #### [facility] [address] [place] [address] Dr. Brea Causey MCH (RBC) [Entitic mass] 29.3 pg Normal 25.9-34.0 [facility] Comment on above: Performed By: #### U CLINT, CMP, LIPID, DBIL, PHOS, MG #### [facility] [address] [place] [address] Dr. Brea Causey MCHC (RBC) [Mass/Vol] 33.8 g/dL Normal 29.9-35.2 [facility] Comment on above: Performed By: #### U CLINT, CMP, LIPID, DBIL, PHOS, MG #### [facility] [address] [place] [address] Dr. Brea Causey MCV (RBC) [Entitic vol] 86.7 fL Normal 80.0-94.0 [facility] Comment on above: Performed By: #### U CLINT, CMP, LIPID, DBIL, PHOS, MG #### [facility] [address] [place] [address] Dr. Brea Causey MONO # 0.6 103/ul Normal 0.3-0.8 [facility] Comment on above: Performed By: #### U CLINT, CMP, LIPID, DBIL, PHOS, MG #### [facility] [address] [place] [address] Dr. Brea Causey Monocytes/100 WBC (Bld) 10.1 % Normal 1.7-12.0 [facility] Comment on above: Performed By: #### U CLINT, CMP, LIPID, DBIL, PHOS, MG #### [facility] [address] [address] [address] Brea Causey NEUT # 3.9 103/ul Normal 1.4-6.5 [facility] Comment on above: Performed By: #### U CLINT, CMP, LIPID, DBIL, PHOS, MG #### [facility] [address] [place] [address] Dr. Brea Causey Neutrophils/100 WBC (Bld) 69.5 % Normal 43.0-75.0 [facility] Comment on above: Performed By: #### U CLINT, CMP, LIPID, DBIL, PHOS, MG #### [facility] [address] [place] [address] Dr. Brea Causey Platelet mean volume (Bld) [Entitic vol] 9.2 fL Critically low 9.5-13.5 [facility] Comment on above: Performed By: #### U CLINT, CMP, LIPID, DBIL, PHOS, MG #### [facility] [address] [place] [address] Dr. Brea Causey PLT 228 103/ul Normal 150-450 [facility] Comment on above: Performed By: #### U CLINT, CMP, LIPID, DBIL, PHOS, MG #### [facility] [address] [place] [address] Dr. Brea Causey RBC 4.20 106/ul Critically low 4.70-6.10 [facility] Comment on above: Performed By: #### U CLINT, CMP, LIPID, DBIL, PHOS, MG #### [facility] [address] [place] [address] Dr. Brea Causey WBC 5.6 103/ul Normal 4.0-11.0 [facility] Comment on above: Performed By: #### U CLINT, CMP, LIPID, DBIL, PHOS, MG #### [facility] [address] [place] [address] Dr. Brea Causey LIPID PROFILEon 04-03-2022 CHOL-HDL RATIO NORM SEE BELOW Normal [facility] Comment on above: Result Comment: 3.3 - 4.4 LOW RISK 4.4 - 7.1 AVERAGE RISK 7.1 - 11.0 MODERATE RISK >11.0 HIGH RISK Performed By: #### U CLINT, CMP, LIPID, DBIL, PHOS, MG #### [facility] [address] [address] [address] Brea Causey Cholesterol [Mass/Vol] 84 mg/dL Normal <=200 [facility] Comment on above: Performed By: #### U CLINT, CMP, LIPID, DBIL, PHOS, MG #### [facility] [address] [address] [address] Brea Causey Cholesterol in HDL [Mass/Vol] 45 mg/dL Normal 40-60 [facility] Comment on above: Performed By: #### U CLINT, CMP, LIPID, DBIL, PHOS, MG #### [facility] [address] [address] [address] Brea Causey Cholesterol in LDL [Mass/Vol] 22.8 mg/dL Normal [facility] Comment on above: Performed By: #### U CLINT, CMP, LIPID, DBIL, PHOS, MG #### [facility] [address] [address] [address] Brea Causey Cholesterol.total/Cho lesterol in HDL [Mass ratio] 1.9 {ratio} Normal [facility] Comment on above: Performed By: #### U CLINT, CMP, LIPID, DBIL, PHOS, MG #### [facility] [address] [address] [address] Brea Causey HDL NORMAL > or = 60 mg/dl - LO W CARDIOVASCULAR RISK <40 mg/dl - HIGH CARDIOVASCULAR RISK Normal [facility] Comment on above: Performed By: #### U CLITN, CMP, LIPID, DBIL, PHOS, MG #### [facility] [address] [address] [address] Brea Causey LDL CALC NORMAL SEE BELOW Normal [facility] Comment on above: Result Comment: <100 mg/dl OPTIMAL 100 - 129 mg/dl NEAR OR ABOVE OPTIMAL 130 - 159 mg/dl BORDERLINE HIGH 160 - 189 mg/dl HIGH >190 mg/dl VERY HIGH Performed By: #### U CLINT, CMP, LIPID, DBIL, PHOS, MG #### [facility] [address] [address] [address] Brea Causey Triglyceride [Mass/Vol] 81 mg/dL Normal <=150 [facility] Comment on above: Performed By: #### U CLINT, CMP, LIPID, DBIL, PHOS, MG #### [facility] [address] [address] [address] Brea Causey VLDL CALC 16.2 mg/dL Normal [facility] Comment on above: Performed By: #### U CLINT, CMP, LIPID, DBIL, PHOS, MG #### [facility] [address] [place] [address] Dr. Brea Causey MAGNESIUMon 04-03-2022 Magnesium [Mass/Vol] 1.6 mg/dL Critically low 1.8-2.4 [facility] Comment on above: Performed By: #### U CLINT, CMP, LIPID, DBIL, PHOS, MG #### [facility] [address] [address] [address] Brea Causey PHOSPHORUSon 04-03-2022 Phosphate [Mass/Vol] 3.9 mg/dL Normal 2.6-4.7 [facility] Comment on above: Performed By: #### U CLINT, CMP, LIPID, DBIL, PHOS, MG #### [facility] [address] [address] [address] Brea Causey PROF 14(COMP METB)on 022 Albumin [Mass/Vol] 4.0 g/dL Normal 3.4-5.0 [facility] Comment on above: Performed By: #### U CLINT, CMP, LIPID, DBIL, PHOS, MG #### [facility] [address] [address] [address] Brea Causey Albumin/Globulin [Mass ratio] 1.2 {ratio} Normal [facility] Comment on above: Performed By: #### U CLINT, CMP, LIPID, DBIL, PHOS, MG #### [facility] [address] [place] [address] Dr. Brea Causey ALP [Catalytic activity/Vol] 196 U/L Critically high 46-116 [facility] Comment on above: Performed By: #### U CLINT, CMP, LIPID, DBIL, PHOS, MG #### [facility] [address] [place] [address] Dr. Brea Causey ALT [Catalytic activity/Vol] 19 U/L Normal 16-63 [facility] Comment on above: Performed By: #### U CLINT, CMP, LIPID, DBIL, PHOS, MG #### [facility] [address] [place] [address] Dr. Brea Causey Anion gap [Moles/Vol] 10.2 mmol/L Normal [facility] Comment on above: Performed By: #### U CLINT, CMP, LIPID, DBIL, PHOS, MG #### [facility] [address] [place] [address] Dr. Brea Causey AST [Catalytic activity/Vol] 15 U/L Normal 15-37 [facility] Comment on above: Performed By: #### U CLINT, CMP, LIPID, DBIL, PHOS, MG #### [facility] [address] [place] [address] Dr. Brea Causey Bilirubin [Mass/Vol] 0.3 mg/dL Normal 0.2-1.0 [facility] Comment on above: Performed By: #### U CLINT, CMP, LIPID, DBIL, PHOS, MG #### [facility] [address] [place] [address] Dr. Brea Causey Calcium [Mass/Vol] 8.2 mg/dL Critically low 8.5-10.1 [facility] Comment on above: Performed By: #### U CLINT, CMP, LIPID, DBIL, PHOS, MG #### [facility] [address] [place] [address] Dr. Brea Causey Chloride [Moles/Vol] 97 mmol/L Critically low 98-107 [facility] Comment on above: Performed By: #### U CLINT, CMP, LIPID, DBIL, PHOS, MG #### [facility] [address] [place] [address] Dr. Brea Causey CO2 [Moles/Vol] 28.2 mmol/L Normal 21.0-32.0 [facility] Comment on above: Performed By: #### U CLINT, CMP, LIPID, DBIL, PHOS, MG #### [facility] [address] [place] [address] Dr. Brea Causey Creatinine [Mass/Vol] 1.00 mg/dL Normal 0.70-1.30 [facility] Comment on above: Performed By: #### U CLITN, CMP, LIPID, DBIL, PHOS, MG #### [facility] [address] [place] [address] Dr. Brea Causey EGFR-AF INDONESIAN >60 Normal >=60 [facility] Comment on above: Performed By: #### U CLINT, CMP, LIPID, DBIL, PHOS, MG #### [facility] [address] [place] [address] Dr. Brea Causey EGFR-NON AF INDONESIAN >60 Normal >=60 [facility] Comment on above: Performed By: #### U CLINT, CMP, LIPID, DBIL, PHOS, MG #### [facility] [address] [place] [address] Dr. Brea Causey Globulin (S) [Mass/Vol] 3.3 g/dL Normal [facility] Comment on above: Performed By: #### U CLINT, CMP, LIPID, DBIL, PHOS, MG #### [facility] [address] [place] [address] Dr. Brea Causey Glucose [Mass/Vol] 164 mg/dL Critically high 74-106 [facility] Comment on above: Performed By: #### U CLINT, CMP, LIPID, DBIL, PHOS, MG #### [facility] [address] [place] [address] Dr. Brea Causey Potassium [Moles/Vol] 4.4 mmol/L Normal 3.5-5.1 [facility] Comment on above: Performed By: #### U CLINT, CMP, LIPID, DBIL, PHOS, MG #### [facility] [address] [address] [address] Brea Causey Protein [Mass/Vol] 7.3 g/dL Normal 6.4-8.2 [facility] Comment on above: Performed By: #### U CLINT, CMP, LIPID, DBIL, PHOS, MG #### [facility] [address] [address] [address] Brea Causey Sodium [Moles/Vol] 131 mmol/L Critically low 136-145 [facility] Comment on above: Performed By: #### U CLINT, CMP, LIPID, DBIL, PHOS, MG #### [facility] [address] [place] [address] Dr. Brea Causey Urea nitrogen [Mass/Vol] 13.0 mg/dL Normal 7.0-18.0 [facility] Comment on above: Performed By: #### U CLINT, CMP, LIPID, DBIL, PHOS, MG #### [facility] [address] [place] [address] Dr. Brea Causey Urea nitrogen/Creatinine [Mass ratio] 13.0 mg/mg Normal [facility] Comment on above: Performed By: #### U CLINT, CMP, LIPID, DBIL, PHOS, MG #### [facility] [address] [place] [address] Dr. Brea Causey URIC ACID SERUMon 04-03-2022 Urate [Mass/Vol] 6.1 mg/dL Normal 3.5-7.2 [facility] Comment on above: Performed By: #### U CLINT, CMP, LIPID, DBIL, PHOS, MG #### [facility] [address] [place] [address] Dr. Brea Causey TESTOSTERONE, FREE,DIRECT, T OTALon 03-13-2022 Free Testosterone(Direct) 6.9 pg/mL Normal 6.6-18.1 [facility] Comment on above: Result Comment: Perf ormed at: BN Performed By: #### T ESTFRD #### [facility] [address] [place] [address] Dr. Brea Causey Testosterone [Mass/Vol] 428 ng/dL Normal 264-916 [facility] Comment on above: Result Comment: Adul t male reference interval is based on a population of healthy nonobese males (BMI <30) between 19 and 39 years old. daniel Harris.al. JCEM 2017,102;[id number]. PMID: [id number]. Performed at: CB Performed By: #### T ESTFRD #### [facility] [address] [place] [address] Dr. Brea Causey BK VIRUS PCR QUANTon 022 BKV DNA QUANT PCR PLASMA Negative Normal Negative [facility] Comment on above: Result Comment: No B K DNA detected. . The linear range of the assay is 22 - 100,000,000 IU/mL. Performed By: #### B KVIRUS #### [facility] [address] [place] [address] Dr. Brea Causey Log10 BKV DNA Plasma Normal [facility] Comment on above: Performed By: #### B KVIRUS #### [facility] [address] [place] [address] Dr. Brea Causey FK506 (TACROLIMUS) WHOLE BLO ODon 03-11-2022 Tacrolimus (FK506), Blood 4.7 ng/mL Normal 2.0-20.0 [facility] Comment on above: Result Comment: Trou gh (immediately following transplant) 15.0 . Trough (steady state, 2 weeks or more after transplant): 3.0 - 8.0 . Performed by LC-MS/MS technology. Performed By: #### C BC #### [facility] [address] [place] [address] Dr. Brea Causey BILIRUBIN CONJUGATED (DIRECT )on 03-08-2022 BILI, CONJUGATED 0.1 mg/dL Normal 0.0-0.2 [facility] Comment on above: Performed By: #### U CLINT, CMP, LIPID, DBIL, PHOS, MG #### [facility] [address] [place] [address] Dr. Brea Causey CBC AUTO DIFFon 03-08-2022 BASO # 0.0 103/ul Normal 0.0-0.1 [facility] Comment on above: Performed By: #### U CLINT, CMP, LIPID, DBIL, PHOS, MG #### [facility] [address] [place] [address] Dr. Brea Causey Basophils/100 WBC (Bld) 0.7 % Normal 0.2-2.0 [facility] Comment on above: Performed By: #### U CLINT, CMP, LIPID, DBIL, PHOS, MG #### [facility] [address] [place] [address] Dr. Brea Causey EO # 0.2 103/ul Normal 0.0-0.7 [facility] Comment on above: Performed By: #### U CLINT, CMP, LIPID, DBIL, PHOS, MG #### [facility] [address] [place] [address] Dr. Brea Causey Eosinophils/100 WBC (Bld) 3.1 % Normal 0.9-7.0 [facility] Comment on above: Performed By: #### U CLINT, CMP, LIPID, DBIL, PHOS, MG #### [facility] [address] [place] [address] Dr. Brea Causey Erythrocyte distribution width (RBC) [Ratio] 13.3 % Normal 11.0-15.0 [facility] Comment on above: Performed By: #### U CLINT, CMP, LIPID, DBIL, PHOS, MG #### [facility] [address] [place] [address] Dr. Brea Causey Hematocrit (Bld) [Volume fraction] 35.7 % Critically low 42.0-54.0 [facility] Comment on above: Performed By: #### U CLINT, CMP, LIPID, DBIL, PHOS, MG #### [facility] [address] [place] [address] Dr. Brea Causey Hemoglobin (Bld) [Mass/Vol] 12.0 g/dL Critically low 14.0-18.0 [facility] Comment on above: Performed By: #### U CLINT, CMP, LIPID, DBIL, PHOS, MG #### [facility] [address] [address] [address] Brea Causey IG # 0.06 10e3/ul Critically high 0.00-0.03 [facility] Comment on above: Performed By: #### U CLINT, CMP, LIPID, DBIL, PHOS, MG #### [facility] [address] [place] [address] Dr. Brea Causey IG % 1.0 % Critically high 0.0-0.5 [facility] Comment on above: Performed By: #### U CLINT, CMP, LIPID, DBIL, PHOS, MG #### [facility] [address] [place] [address] Dr. Brea Causey LYMPH # 0.8 103/ul Critically low 1.2-3.8 [facility] Comment on above: Performed By: #### U CLINT, CMP, LIPID, DBIL, PHOS, MG #### [facility] [address] [place] [address] Dr. Brea Causey Lymphocytes/100 WBC (Bld) 12.9 % Critically low 20.5-60.0 [facility] Comment on above: Performed By: #### U CLINT, CMP, LIPID, DBIL, PHOS, MG #### [facility] [address] [place] [address] Dr. Brea Causey MANUAL DIFF REQ NO Normal [facility] Comment on above: Performed By: #### U CLINT, CMP, LIPID, DBIL, PHOS, MG #### [facility] [address] [place] [address] Dr. Brea Causey MCH (RBC) [Entitic mass] 29.5 pg Normal 25.9-34.0 [facility] Comment on above: Performed By: #### U CLINT, CMP, LIPID, DBIL, PHOS, MG #### [facility] [address] [place] [address] Dr. Brea Causey MCHC (RBC) [Mass/Vol] 33.6 g/dL Normal 29.9-35.2 [facility] Comment on above: Performed By: #### U CLINT, CMP, LIPID, DBIL, PHOS, MG #### [facility] [address] [place] [address] Dr. Brea Causey MCV (RBC) [Entitic vol] 87.7 fL Normal 80.0-94.0 [facility] Comment on above: Performed By: #### U CLINT, CMP, LIPID, DBIL, PHOS, MG #### [facility] [address] [place] [address] Dr. Brea Causey MONO # 0.6 103/ul Normal 0.3-0.8 [facility] Comment on above: Performed By: #### U CLINT, CMP, LIPID, DBIL, PHOS, MG #### [facility] [address] [place] [address] Dr. Brea Causey Monocytes/100 WBC (Bld) 9.8 % Normal 1.7-12.0 [facility] Comment on above: Performed By: #### U CLINT, CMP, LIPID, DBIL, PHOS, MG #### [facility] [address] [place] [address] Dr. Brea Causey NEUT # 4.4 103/ul Normal 1.4-6.5 [facility] Comment on above: Performed By: #### U CLINT, CMP, LIPID, DBIL, PHOS, MG #### [facility] [address] [place] [address] Dr. Brea Causey Neutrophils/100 WBC (Bld) 72.5 % Normal 43.0-75.0 [facility] Comment on above: Performed By: #### U CLINT, CMP, LIPID, DBIL, PHOS, MG #### [facility] [address] [place] [address] Dr. Brea Causey Platelet mean volume (Bld) [Entitic vol] 9.6 fL Normal 9.5-13.5 [facility] Comment on above: Performed By: #### U CLINT, CMP, LIPID, DBIL, PHOS, MG #### [facility] [address] [place] [address] Dr. Brea Causey PLT 265 103/ul Normal 150-450 [facility] Comment on above: Performed By: #### U CLINT, CMP, LIPID, DBIL, PHOS, MG #### [facility] [address] [address] [address] Brea Causey RBC 4.07 106/ul Critically low 4.70-6.10 [facility] Comment on above: Performed By: #### U CLINT, CMP, LIPID, DBIL, PHOS, MG #### [facility] [address] [address] [address] Brea Causey WBC 6.0 103/ul Normal 4.0-11.0 [facility] Comment on above: Performed By: #### U CLINT, CMP, LIPID, DBIL, PHOS, MG #### [facility] [address] [address] [address] Brea Causey GLYCOHEMOGLOBIN A1Con 2021 ADA RECOMMENDATION SEE BELOW Normal [facility] Comment on above: Result Comment: ADA RECOMMENDED LIMIT 4.0 - 6.0 ADA THERAPEUTIC TARGET < 7.0 ACTION SUGGESTED > 7.0 Performed By: #### U CLINT, CMP, LIPID, DBIL, PHOS, MG #### [facility] [address] [address] [address] Brea Causey Glucose [Mass/Vol] 169 mg/dL Normal [facility] Comment on above: Performed By: #### U CLINT, CMP, LIPID, DBIL, PHOS, MG #### [facility] [address] [address] [address] Brea Causey HbA1c (Bld) [Mass fraction] 7.5 % Critically high 4.5-6.2 [facility] Comment on above: Performed By: #### U CLINT, CMP, LIPID, DBIL, PHOS, MG #### [facility] [address] [address] [address] Brea Causey LIPID PROFILEon 03-08-2022 CHOL-HDL RATIO NORM SEE BELOW Normal [facility] Comment on above: Result Comment: 3.3 - 4.4 LOW RISK 4.4 - 7.1 AVERAGE RISK 7.1 - 11.0 MODERATE RISK >11.0 HIGH RISK Performed By: #### U CLINT, CMP, LIPID, DBIL, PHOS, MG #### [facility] [address] [address] [address] Brea Causey Cholesterol [Mass/Vol] 77 mg/dL Normal <=200 [facility] Comment on above: Performed By: #### U CLINT, CMP, LIPID, DBIL, PHOS, MG #### [facility] [address] [address] [address] Brea Causey Cholesterol in HDL [Mass/Vol] 49 mg/dL Normal 40-60 [facility] Comment on above: Performed By: #### U CLINT, CMP, LIPID, DBIL, PHOS, MG #### [facility] [address] [address] [address] Brea Causey Cholesterol in LDL [Mass/Vol] 20.4 mg/dL Normal [facility] Comment on above: Performed By: #### U CLINT, CMP, LIPID, DBIL, PHOS, MG #### [facility] [address] [address] [address] Brea Causey Cholesterol.total/Cho lesterol in HDL [Mass ratio] 1.6 {ratio} Normal [facility] Comment on above: Performed By: #### U CLINT, CMP, LIPID, DBIL, PHOS, MG #### [facility] [address] [address] [address] Brea Causey HDL NORMAL > or = 60 mg/dl - LO W CARDIOVASCULAR RISK <40 mg/dl - HIGH CARDIOVASCULAR RISK Normal [facility] Comment on above: Performed By: #### U CLINT, CMP, LIPID, DBIL, PHOS, MG #### [facility] [address] [address] [address] Brea Causey LDL CALC NORMAL SEE BELOW Normal [facility] Comment on above: Result Comment: <100 mg/dl OPTIMAL 100 - 129 mg/dl NEAR OR ABOVE OPTIMAL 130 - 159 mg/dl BORDERLINE HIGH 160 - 189 mg/dl HIGH >190 mg/dl VERY HIGH Performed By: #### U CLINT, CMP, LIPID, DBIL, PHOS, MG #### [facility] [address] [address] [address] Brea Causey Triglyceride [Mass/Vol] 38 mg/dL Normal <=150 [facility] Comment on above: Performed By: #### U CLINT, CMP, LIPID, DBIL, PHOS, MG #### [facility] [address] [address] [address] Brea Causey VLDL CALC 7.6 mg/dL Normal [facility] Comment on above: Performed By: #### U CLINT, CMP, LIPID, DBIL, PHOS, MG #### [facility] [address] [address] [address] Brea Causey MAGNESIUMon 03-08-2022 Magnesium [Mass/Vol] 1.5 mg/dL Critically low 1.8-2.4 [facility] Comment on above: Performed By: #### U CLINT, CMP, LIPID, DBIL, PHOS, MG #### [facility] [address] [place] [address] Dr. Brea Causey PHOSPHORUSon 03-08-2022 Phosphate [Mass/Vol] 3.6 mg/dL Normal 2.6-4.7 [facility] Comment on above: Performed By: #### U CLINT, CMP, LIPID, DBIL, PHOS, MG #### [facility] [address] [address] [address] Brea Causey PROF 14(COMP METB)on 022 Albumin [Mass/Vol] 4.0 g/dL Normal 3.4-5.0 [facility] Comment on above: Performed By: #### U CLINT, CMP, LIPID, DBIL, PHOS, MG #### [facility] [address] [place] [address] Dr. Brea Causey Albumin/Globulin [Mass ratio] 1.2 {ratio} Normal [facility] Comment on above: Performed By: #### U CLINT, CMP, LIPID, DBIL, PHOS, MG #### [facility] [address] [place] [address] Dr. Brea Causey ALP [Catalytic activity/Vol] 176 U/L Critically high 46-116 [facility] Comment on above: Performed By: #### U CLINT, CMP, LIPID, DBIL, PHOS, MG #### [facility] [address] [place] [address] Dr. Brea Causey ALT [Catalytic activity/Vol] 21 U/L Normal 16-63 [facility] Comment on above: Performed By: #### U CLINT, CMP, LIPID, DBIL, PHOS, MG #### [facility] [address] [place] [address] Dr. Brea Causey Anion gap [Moles/Vol] 12.0 mmol/L Normal [facility] Comment on above: Performed By: #### U CLINT, CMP, LIPID, DBIL, PHOS, MG #### [facility] [address] [place] [address] Dr. Brea Causey AST [Catalytic activity/Vol] 13 U/L Critically low 15-37 [facility] Comment on above: Performed By: #### U CLINT, CMP, LIPID, DBIL, PHOS, MG #### [facility] [address] [place] [address] Dr. Brea Causey Bilirubin [Mass/Vol] 0.3 mg/dL Normal 0.2-1.0 [facility] Comment on above: Performed By: #### U CLINT, CMP, LIPID, DBIL, PHOS, MG #### [facility] [address] [place] [address] Dr. Brea Causey Calcium [Mass/Vol] 7.9 mg/dL Critically low 8.5-10.1 [facility] Comment on above: Performed By: #### U CLINT, CMP, LIPID, DBIL, PHOS, MG #### [facility] [address] [place] [address] Dr. Brea Causey Chloride [Moles/Vol] 100 mmol/L Normal 98-107 [facility] Comment on above: Performed By: #### U CLINT, CMP, LIPID, DBIL, PHOS, MG #### [facility] [address] [place] [address] Dr. Brea Causey CO2 [Moles/Vol] 27.3 mmol/L Normal 21.0-32.0 [facility] Comment on above: Performed By: #### U CLINT, CMP, LIPID, DBIL, PHOS, MG #### [facility] [address] [place] [address] Dr. Brea Causey Creatinine [Mass/Vol] 1.00 mg/dL Normal 0.70-1.30 [facility] Comment on above: Performed By: #### U CLINT, CMP, LIPID, DBIL, PHOS, MG #### [facility] [address] [place] [address] Dr. Brea Causey EGFR-AF INDONESIAN >60 Normal >=60 [facility] Comment on above: Performed By: #### U CLINT, CMP, LIPID, DBIL, PHOS, MG #### [facility] [address] [place] [address] Dr. Brea Causey EGFR-NON AF INDONESIAN >60 Normal >=60 [facility] Comment on above: Performed By: #### U CLINT, CMP, LIPID, DBIL, PHOS, MG #### [facility] [address] [place] [address] Dr. Brea Causey Globulin (S) [Mass/Vol] 3.3 g/dL Normal [facility] Comment on above: Performed By: #### U CLINT, CMP, LIPID, DBIL, PHOS, MG #### [facility] [address] [place] [address] Dr. Brea Causey Glucose [Mass/Vol] 155 mg/dL Critically high 74-106 T [facility] Comment on above: Performed By: #### U CLINT, CMP, LIPID, DBIL, PHOS, MG #### [facility] [address] [place] [address] Dr. Brea Causey Potassium [Moles/Vol] 4.3 mmol/L Normal 3.5-5.1 [facility] Comment on above: Performed By: #### U CLINT, CMP, LIPID, DBIL, PHOS, MG #### [facility] [address] [place] [address] Dr. Brea Causey Protein [Mass/Vol] 7.3 g/dL Normal 6.4-8.2 [facility] Comment on above: Performed By: #### U CLINT, CMP, LIPID, DBIL, PHOS, MG #### [facility] [address] [address] [address] Brea Causey Sodium [Moles/Vol] 135 mmol/L Critically low 136-145 Th e [facility] Comment on above: Performed By: #### U CLINT, CMP, LIPID, DBIL, PHOS, MG #### [facility] [address] [address] [address] Brea Causey Urea nitrogen [Mass/Vol] 13.0 mg/dL Normal 7.0-18.0 [facility] Comment on above: Performed By: #### U CLINT, CMP, LIPID, DBIL, PHOS, MG #### [facility] [address] [place] [address] Dr. Brea Causey Urea nitrogen/Creatinine [Mass ratio] 13.0 mg/mg Normal [facility] Comment on above: Performed By: #### U CLINT, CMP, LIPID, DBIL, PHOS, MG #### [facility] [address] [place] [address] Dr. Brea Causey URIC ACID SERUMon 03-08-2022 Urate [Mass/Vol] 7.3 mg/dL Critically high 3.5-7.2 [facility] Comment on above: Performed By: #### U CLINT, CMP, LIPID, DBIL, PHOS, MG #### [facility] [address] [place] [address] Dr. Brea Snyder 03-05-2022 L - -------- Specimen: [id number] Received: 03/05/22 Status: DEMETRIOSherron Irene Num: [id number] Spec Type: Surgical Subm Dr: Tj Wells MD Tissues: A Colon Biopsy (COLON BX) B Colon Biopsy (DIVERTICULAR COLITIS) Procedures: HE Stain/4, Gross/Micro L4/2 -------- Age/ Patient Sex Location Account Attending Physician -------- Wm Saurez 71/[facility] [id number] Tj eWlls MD -------- SPEC NUM: [id number] RECD: 03/05/22 STATUS: CHERI FAIR NUM: [id number] ETSEFANI: 03/05/22 DR: Tj Wells MD ENTERED: 03/05/[address] [facility] [address]: MICHELLE TYPE: Surgical DEPT: S [...] in one cassette labeled B1. -------- Specimen: [id number] Received: 03/05/22 Status: CHERI Fair Num: [id number] Spec Type: Surgical Subm Dr: Tj Wells MD Tissues: A Colon Biopsy (COLON BX) B Colon Biopsy (DIVERTICULAR COLITIS) Procedures: HE Stain/4, Gross/Micro L4/2 -------- Patient: Wm Suarez [id number] (Continued) -------- Specimen: [id number] Received: 03/05/22 (Continued) Signed (signature on file) Kalpana Shaw MD 03/07/22 1025 -------- Specimen: [id number] Received: 03/05/22 Status: CHERI Fair Num: [id number] Spec Type: Surgical Subm Dr: Tj Wells MD Tissues: A Colon Biopsy (COLON BX) B Colon Biopsy (DIVERTICULAR COLITIS) Procedures: HE Stain/4, Gross/Micro L4/2 -------- Patient: Wm Suarez [id number] (Continued) -------- Specimen: [id number] Received: 03/05/22 (Continued) Microscopic Description A. Two glass slides with H E stained material have been examined. The microscopic findings support the above pathologic diagnosis. B. Two glass slides with H E stained material have been examined. The microscopic findings support the above pathologic diagnosis. CPT Codes 52089?2 -------- -------- Specimen: [id number] Received: 03/05/22-1000 Status: CHERI Fair Num: [id number] Spec Type: Surgical Subm Dr: Tj Wells MD Tissues: A Colon Biopsy (COLON BX) B Colon Biopsy (DIVERTICULAR COLITIS) Procedures: HE Stain/4, Gross/Micro L4/2 -------- Patient: Wm Suarez [id number] (Continued) -------- Signed (signature on file) Kalpana Shaw MD 03/07/22 1025 [facility] COVID-19 Antigenon 2 COVID-19 Antigen Healthcare Worker?: [...] developed and its performance characteristic determined by [employer] and validated at [facility]. This test has not been FDA cleared [...] for SARS Antigen by ROCHELLE PERFORMED BY: [place] [address] PATHOLOGIST [employer] PROJECT MANAGER FEI WOODRUFF M.D. Normal [facility] Comment on above: Performed By: #### C OVID-19 MARQUISE, SOFIANEG #### [address] COVID-19 SOFIAOrdered By: Sheila Wells on 03-01-2022 SARS-CoV+SARS-CoV-2 (COVID-19) Ag IA.rapid Ql (Resp) Negative Negative [facility] Comment on above: This is a duplicate Marquise SARS Antigen (ROCHELLE) result to be used for statistical tracking purpose only. No Panel InformationOrdered By: Tj Wells on 03-01-2022 SARS Antigen (LFIA) [facility] Marquise Ag Negativeon 03-01-20 22 Marquise Ag Negative Negative Normal Negative [facility] Comment on above: Result Comment: This is a duplicate Marquise SARS Antigen (ROCHELLE) result to be used for statistical tracking purpose only. PERFORMED BY: [place] [address] PATHOLOGIST [employer] PROJECT MANAGER FEI WOODRUFF M.D. Performed By: #### C OVID-19 MARQUISE, SOFIANEG #### [address] FK506 (TACROLIMUS) WHOLE BLO ODon 02-05-2022 Tacrolimus (FK506), Blood 5.4 ng/mL Normal 2.0-20.0 [facility] Comment on above: Result Comment: Trou gh (immediately following transplant) 15.0 . Trough (steady state, 2 weeks or more after transplant): 3.0 - 8.0 . Performed by LC-MS/MS technology. Performed By: #### U CLINT, CMP, LIPID, DBIL, PHOS, MG #### [facility] [address] [place] [address] Dr. Brea Causey BILIRUBIN CONJUGATED (DIRECT )on 02-01-2022 BILI, CONJUGATED 0.1 mg/dL Normal 0.0-0.2 [facility] Comment on above: Performed By: #### C BC #### [facility] [address] [place] [address] Dr. Brea Causey CBC AUTO DIFFon 02-01-2022 BASO # 0.0 103/ul Normal 0.0-0.1 [facility] Comment on above: Performed By: #### B KVIRUS #### [facility] [address] [place] [address] Dr. Brea Causey Basophils/100 WBC (Bld) 0.6 % Normal 0.2-2.0 [facility] Comment on above: Performed By: #### B KVIRUS #### [facility] [address] [place] [address] Dr. Brea Causey EO # 0.2 103/ul Normal 0.0-0.7 [facility] Comment on above: Performed By: #### B KVIRUS #### [facility] [address] [place] [address] Dr. Brea Causey Eosinophils/100 WBC (Bld) 3.5 % Normal 0.9-7.0 [facility] Comment on above: Performed By: #### B KVIRUS #### [facility] [address] [place] [address] Dr. Brea Causey Erythrocyte distribution width (RBC) [Ratio] 13.0 % Normal 11.0-15.0 [facility] Comment on above: Performed By: #### B KVIRUS #### [facility] [address] [place] [address] Dr. Brea Causey Hematocrit (Bld) [Volume fraction] 36.9 % Critically low 42.0-54.0 [facility] Comment on above: Performed By: #### B KVIRUS #### [facility] [address] [place] [address] Dr. Brea Causey Hemoglobin (Bld) [Mass/Vol] 12.0 g/dL Critically low 14.0-18.0 [facility] Comment on above: Performed By: #### B KVIRUS #### [facility] [address] [place] [address] Dr. Brea Causey IG # 0.07 10e3/ul Critically high 0.00-0.03 [facility] Comment on above: Performed By: #### B KVIRUS #### [facility] [address] [place] [address] Dr. Brea Causey IG % 1.0 % Critically high 0.0-0.5 [facility] Comment on above: Performed By: #### B KVIRUS #### [facility] [address] [place] [address] Dr. Brea Causey LYMPH # 1.0 103/ul Critically low 1.2-3.8 [facility] Comment on above: Performed By: #### B KVIRUS #### [facility] [address] [place] [address] Dr. Brea Causey Lymphocytes/100 WBC (Bld) 14.2 % Critically low 20.5-60.0 [facility] Comment on above: Performed By: #### B KVIRUS #### [facility] [address] [place] [address] Dr. Brea Causey MANUAL DIFF REQ NO Normal [facility] Comment on above: Performed By: #### B KVIRUS #### [facility] [address] [place] [address] Dr. Brea Causey MCH (RBC) [Entitic mass] 29.1 pg Normal 25.9-34.0 [facility] Comment on above: Performed By: #### B KVIRUS #### [facility] [address] [place] [address] Dr. Brea Causey MCHC (RBC) [Mass/Vol] 32.5 g/dL Normal 29.9-35.2 [facility] Comment on above: Performed By: #### B KVIRUS #### [facility] [address] [place] [address] Dr. Brea Causey MCV (RBC) [Entitic vol] 89.6 fL Normal 80.0-94.0 [facility] Comment on above: Performed By: #### B KVIRUS #### [facility] [address] [place] [address] Dr. Brea Causey MONO # 0.7 103/ul Normal 0.3-0.8 [facility] Comment on above: Performed By: #### B KVIRUS #### [facility] [address] [place] [address] Dr. Brea Causey Monocytes/100 WBC (Bld) 9.9 % Normal 1.7-12.0 [facility] Comment on above: Performed By: #### B KVIRUS #### [facility] [address] [place] [address] Dr. Brea Causey NEUT # 4.9 103/ul Normal 1.4-6.5 [facility] Comment on above: Performed By: #### B KVIRUS #### [facility] [address] [place] [address] Dr. Brea Causey Neutrophils/100 WBC (Bld) 70.8 % Normal 43.0-75.0 [facility] Comment on above: Performed By: #### B KVIRUS #### [facility] [address] [place] [address] Dr. Brea Causey Platelet mean volume (Bld) [Entitic vol] 9.6 fL Normal 9.5-13.5 [facility] Comment on above: Performed By: #### B KVIRUS #### [facility] [address] [place] [address] Dr. Brea Causey PLT 247 103/ul Normal 150-450 [facility] Comment on above: Performed By: #### B KVIRUS #### [facility] [address] [address] [address] Brea Causey RBC 4.12 106/ul Critically low 4.70-6.10 [facility] Comment on above: Performed By: #### B KVIRUS #### [facility] [address] [place] [address] Dr. Brea Causey WBC 6.9 103/ul Normal 4.0-11.0 [facility] Comment on above: Performed By: #### B KVIRUS #### [facility] [address] [place] [address] Dr. Brea Causey LIPID PROFILEon 02-01-2022 CHOL-HDL RATIO NORM SEE BELOW Normal [facility] Comment on above: Result Comment: 3.3 - 4.4 LOW RISK 4.4 - 7.1 AVERAGE RISK 7.1 - 11.0 MODERATE RISK >11.0 HIGH RISK Performed By: #### C BC #### [facility] [address] [place] [address] Dr. Brea Causey Cholesterol [Mass/Vol] 77 mg/dL Normal <=200 [facility] Comment on above: Performed By: #### C BC #### [facility] [address] [place] [address] Dr. Brea Causey Cholesterol in HDL [Mass/Vol] 40 mg/dL Normal 40-60 [facility] Comment on above: Performed By: #### C BC #### [facility] [address] [place] [address] Dr. Brea Causey Cholesterol in LDL [Mass/Vol] 21.0 mg/dL Normal [facility] Comment on above: Performed By: #### C BC #### [facility] [address] [address] [address] Brea Causey Cholesterol.total/Cho lesterol in HDL [Mass ratio] 1.9 {ratio} Normal [facility] Comment on above: Performed By: #### C BC #### [facility] [address] [address] [address] Brea Causey HDL NORMAL > or = 60 mg/dl - LO W CARDIOVASCULAR RISK <40 mg/dl - HIGH CARDIOVASCULAR RISK Normal [facility] Comment on above: Performed By: #### C BC #### [facility] [address] [address] [address] Brea Causey LDL CALC NORMAL SEE BELOW Normal [facility] Comment on above: Result Comment: <100 mg/dl OPTIMAL 100 - 129 mg/dl NEAR OR ABOVE OPTIMAL 130 - 159 mg/dl BORDERLINE HIGH 160 - 189 mg/dl HIGH >190 mg/dl VERY HIGH Performed By: #### C BC #### [facility] [address] [address] [address] Brea Causey Triglyceride [Mass/Vol] 80 mg/dL Normal <=150 [facility] Comment on above: Performed By: #### C BC #### [facility] [address] [address] [address] Brea Causey VLDL CALC 16.0 mg/dL Normal [facility] Comment on above: Performed By: #### C BC #### [facility] [address] [address] [address] Brea Causey MAGNESIUMon 02-01-2022 Magnesium [Mass/Vol] 1.5 mg/dL Critically low 1.8-2.4 [facility] Comment on above: Performed By: #### C BC #### [facility] [address] [address] [address] Brea Causey PHOSPHORUSon 02-01-2022 Phosphate [Mass/Vol] 4.1 mg/dL Normal 2.6-4.7 [facility] Comment on above: Performed By: #### C BC #### [facility] [address] [address] [address] Brea Causey PROF 14(COMP METB)on 022 Albumin [Mass/Vol] 4.0 g/dL Normal 3.4-5.0 [facility] Comment on above: Performed By: #### C BC #### [facility] [address] [place] [address] Dr. Brea Causey Albumin/Globulin [Mass ratio] 1.3 {ratio} Normal [facility] Comment on above: Performed By: #### C BC #### [facility] [address] [place] [address] Dr. Brea Causey ALP [Catalytic activity/Vol] 162 U/L Critically high 46-116 [facility] Comment on above: Performed By: #### C BC #### [facility] [address] [place] [address] Dr. Brea Causey ALT [Catalytic activity/Vol] 25 U/L Normal 16-63 [facility] Comment on above: Performed By: #### C BC #### [facility] [address] [place] [address] Dr. Brea Causey Anion gap [Moles/Vol] 11.1 mmol/L Normal [facility] Comment on above: Performed By: #### C BC #### [facility] [address] [place] [address] Dr. Brea Causey AST [Catalytic activity/Vol] 16 U/L Normal 15-37 [facility] Comment on above: Performed By: #### C BC #### [facility] [address] [place] [address] Dr. Brea Causey Bilirubin [Mass/Vol] 0.4 mg/dL Normal 0.2-1.0 [facility] Comment on above: Performed By: #### C BC #### [facility] [address] [place] [address] Dr. Brea Causey Calcium [Mass/Vol] 8.2 mg/dL Critically low 8.5-10.1 [facility] Comment on above: Performed By: #### C BC #### [facility] [address] [place] [address] Dr. Brea Causey Chloride [Moles/Vol] 99 mmol/L Normal 98-107 [facility] Comment on above: Performed By: #### C BC #### [facility] [address] [address] [address] Brea Causey CO2 [Moles/Vol] 28.1 mmol/L Normal 21.0-32.0 [facility] Comment on above: Performed By: #### C BC #### [facility] [address] [address] [address] Brea Causey Creatinine [Mass/Vol] 1.13 mg/dL Normal 0.70-1.30 [facility] Comment on above: Performed By: #### C BC #### [facility] [address] [place] [address] Dr. Brea Causey EGFR-AF INDONESIAN >60 Normal >=60 [facility] Comment on above: Performed By: #### C BC #### [facility] [address] [place] [address] Dr. Brea Causey EGFR-NON AF INDONESIAN >60 Normal >=60 [facility] Comment on above: Performed By: #### C BC #### [facility] [address] [address] [address] Brea Causey Globulin (S) [Mass/Vol] 3.1 g/dL Normal [facility] Comment on above: Performed By: #### C BC #### [facility] [address] [place] [address] Dr. Brea Causey Glucose [Mass/Vol] 177 mg/dL Critically high 74-106 [facility] Comment on above: Performed By: #### C BC #### [facility] [address] [place] [address] Dr. Brea Causey Potassium [Moles/Vol] 5.2 mmol/L Critically high 3.5-5.1 [facility] Comment on above: Performed By: #### C BC #### [facility] [address] [address] [address] Brea Causey Protein [Mass/Vol] 7.1 g/dL Normal 6.4-8.2 [facility] Comment on above: Performed By: #### C BC #### [facility] [address] [address] [address] Brea Causey Sodium [Moles/Vol] 133 mmol/L Critically low 136-145 Th e [facility] Comment on above: Performed By: #### C BC #### [facility] [address] [address] [address] Brea Causey Urea nitrogen [Mass/Vol] 12.0 mg/dL Normal 7.0-18.0 [facility] Comment on above: Performed By: #### C BC #### [facility] [address] [place] [address] Dr. Brea Causey Urea nitrogen/Creatinine [Mass ratio] 10.6 mg/mg Normal [facility] Comment on above: Performed By: #### C BC #### [facility] [address] [place] [address] Dr. Brea Causey URIC ACID SERUMon 02-01-2022 Urate [Mass/Vol] 7.7 mg/dL Critically high 3.5-7.2 [facility] Comment on above: Performed By: #### C BC #### [facility] [address] [place] [address] Dr. Brea Causey FK506 (TACROLIMUS) WHOLE BLO ODon 01-06-2022 Tacrolimus (FK506), Blood 11.4 ng/mL Normal 2.0-20.0 [facility] Comment on above: Result Comment: Trou gh (immediately following transplant) 15.0 . Trough (steady state, 2 weeks or more after transplant): 3.0 - 8.0 . Performed by LC-MS/MS technology. Performed By: #### B KVIRUS #### [facility] [address] [place] [address] Dr. Brea Causey BILIRUBIN CONJUGATED (DIRECT )on 01-04-2022 BILI, CONJUGATED 0.1 mg/dL Normal 0.0-0.2 [facility] Comment on above: Performed By: #### U CLINT, CMP, LIPID, DBIL, PHOS, MG #### [facility] [address] [place] [address] Dr. Brea Causey BOX TEST SENT OUTon 01-05-20 22 SENT TO REF LAB 01/04/2022 Normal [facility] Comment on above: Performed By: #### U CLINT, CMP, LIPID, DBIL, PHOS, MG #### [facility] [address] [place] [address] Dr. Brea Causey CBC AUTO DIFFon 01-04-2022 BASO # 0.0 103/ul Normal 0.0-0.1 [facility] Comment on above: Performed By: #### U CLINT, CMP, LIPID, DBIL, PHOS, MG #### [facility] [address] [place] [address] Dr. Brea Causey Basophils/100 WBC (Bld) 0.5 % Normal 0.2-2.0 [facility] Comment on above: Performed By: #### U CLINT, CMP, LIPID, DBIL, PHOS, MG #### [facility] [address] [place] [address] Dr. Brea Causey EO # 0.3 103/ul Normal 0.0-0.7 [facility] Comment on above: Performed By: #### U CLINT, CMP, LIPID, DBIL, PHOS, MG #### [facility] [address] [place] [address] Dr. Brea Causey Eosinophils/100 WBC (Bld) 3.9 % Normal 0.9-7.0 [facility] Comment on above: Performed By: #### U CLINT, CMP, LIPID, DBIL, PHOS, MG #### [facility] [address] [place] [address] Dr. Brea Causey Erythrocyte distribution width (RBC) [Ratio] 13.1 % Normal 11.0-15.0 [facility] Comment on above: Performed By: #### U CLINT, CMP, LIPID, DBIL, PHOS, MG #### [facility] [address] [place] [address] Dr. Brea Causey Hematocrit (Bld) [Volume fraction] 37.4 % Critically low 42.0-54.0 [facility] Comment on above: Performed By: #### U CLINT, CMP, LIPID, DBIL, PHOS, MG #### [facility] [address] [address] [address] Brea Causey Hemoglobin (Bld) [Mass/Vol] 12.0 g/dL Critically low 14.0-18.0 [facility] Comment on above: Performed By: #### U CLNIT, CMP, LIPID, DBIL, PHOS, MG #### [facility] [address] [address] [address] Brea Causey IG # 0.07 10e3/ul Critically high 0.00-0.03 [facility] Comment on above: Performed By: #### U CLINT, CMP, LIPID, DBIL, PHOS, MG #### [facility] [address] [place] [address] Dr. Brea Causey IG % 1.1 % Critically high 0.0-0.5 [facility] Comment on above: Performed By: #### U CLINT, CMP, LIPID, DBIL, PHOS, MG #### [facility] [address] [address] [address] Brea Causey LYMPH # 0.8 103/ul Critically low 1.2-3.8 [facility] Comment on above: Performed By: #### U CLINT, CMP, LIPID, DBIL, PHOS, MG #### [facility] [address] [place] [address] Dr. Brea Causey Lymphocytes/100 WBC (Bld) 12.2 % Critically low 20.5-60.0 [facility] Comment on above: Performed By: #### U CLINT, CMP, LIPID, DBIL, PHOS, MG #### [facility] [address] [place] [address] Dr. Brea Causey MANUAL DIFF REQ NO Normal [facility] Comment on above: Performed By: #### U CLINT, CMP, LIPID, DBIL, PHOS, MG #### [facility] [address] [place] [address] Dr. Brea Causey MCH (RBC) [Entitic mass] 29.1 pg Normal 25.9-34.0 [facility] Comment on above: Performed By: #### U CLINT, CMP, LIPID, DBIL, PHOS, MG #### [facility] [address] [place] [address] Dr. Brea Causey MCHC (RBC) [Mass/Vol] 32.1 g/dL Normal 29.9-35.2 [facility] Comment on above: Performed By: #### U CLINT, CMP, LIPID, DBIL, PHOS, MG #### [facility] [address] [place] [address] Dr. Brea Causey MCV (RBC) [Entitic vol] 90.6 fL Normal 80.0-94.0 [facility] Comment on above: Performed By: #### U CLINT, CMP, LIPID, DBIL, PHOS, MG #### [facility] [address] [place] [address] Dr. Brea Causey MONO # 0.5 103/ul Normal 0.3-0.8 [facility] Comment on above: Performed By: #### U CLINT, CMP, LIPID, DBIL, PHOS, MG #### [facility] [address] [place] [address] Dr. Brea Causey Monocytes/100 WBC (Bld) 8.0 % Normal 1.7-12.0 [facility] Comment on above: Performed By: #### U CLINT, CMP, LIPID, DBIL, PHOS, MG #### [facility] [address] [place] [address] Dr. Brea Causey NEUT # 5.0 103/ul Normal 1.4-6.5 [facility] Comment on above: Performed By: #### U CLINT, CMP, LIPID, DBIL, PHOS, MG #### [facility] [address] [place] [address] Dr. Brea Causey Neutrophils/100 WBC (Bld) 74.3 % Normal 43.0-75.0 [facility] Comment on above: Performed By: #### U CLINT, CMP, LIPID, DBIL, PHOS, MG #### [facility] [address] [place] [address] Dr. Brea Causey Platelet mean volume (Bld) [Entitic vol] 9.5 fL Normal 9.5-13.5 [facility] Comment on above: Performed By: #### U CLINT, CMP, LIPID, DBIL, PHOS, MG #### [facility] [address] [address] [address] Brea Causey PLT 243 103/ul Normal 150-450 [facility] Comment on above: Performed By: #### U CLINT, CMP, LIPID, DBIL, PHOS, MG #### [facility] [address] [address] [address] Brea Causey RBC 4.13 106/ul Critically low 4.70-6.10 [facility] Comment on above: Performed By: #### U CLINT, CMP, LIPID, DBIL, PHOS, MG #### [facility] [address] [address] [address] Brea Causey WBC 6.7 103/ul Normal 4.0-11.0 [facility] Comment on above: Performed By: #### U CLINT, CMP, LIPID, DBIL, PHOS, MG #### [facility] [address] [address] [address] Brea Causey LIPID PROFILEon 01-04-2022 CHOL-HDL RATIO NORM SEE BELOW Normal [facility] Comment on above: Result Comment: 3.3 - 4.4 LOW RISK 4.4 - 7.1 AVERAGE RISK 7.1 - 11.0 MODERATE RISK >11.0 HIGH RISK Performed By: #### U CLINT, CMP, LIPID, DBIL, PHOS, MG #### [facility] [address] [address] [address] Brea Causey Cholesterol [Mass/Vol] 81 mg/dL Normal <=200 [facility] Comment on above: Performed By: #### U CLINT, CMP, LIPID, DBIL, PHOS, MG #### [facility] [address] [address] [address] Brea Causey Cholesterol in HDL [Mass/Vol] 43 mg/dL Normal 40-60 [facility] Comment on above: Performed By: #### U CLINT, CMP, LIPID, DBIL, PHOS, MG #### [facility] [address] [address] [address] Brea Causey Cholesterol in LDL [Mass/Vol] 26.0 mg/dL Normal [facility] Comment on above: Performed By: #### U CLINT, CMP, LIPID, DBIL, PHOS, MG #### [facility] [address] [address] [address] Brea Causey Cholesterol.total/Cho lesterol in HDL [Mass ratio] 1.9 {ratio} Normal [facility] Comment on above: Performed By: #### U CLINT, CMP, LIPID, DBIL, PHOS, MG #### [facility] [address] [address] [address] Brea Causey HDL NORMAL > or = 60 mg/dl - LO W CARDIOVASCULAR RISK <40 mg/dl - HIGH CARDIOVASCULAR RISK Normal [facility] Comment on above: Performed By: #### U CLINT, CMP, LIPID, DBIL, PHOS, MG #### [facility] [address] [address] [address] Brea Causey LDL CALC NORMAL SEE BELOW Normal [facility] Comment on above: Result Comment: <100 mg/dl OPTIMAL 100 - 129 mg/dl NEAR OR ABOVE OPTIMAL 130 - 159 mg/dl BORDERLINE HIGH 160 - 189 mg/dl HIGH >190 mg/dl VERY HIGH Performed By: #### U CLINT, CMP, LIPID, DBIL, PHOS, MG #### [facility] [address] [address] [address] Brea Causey Triglyceride [Mass/Vol] 60 mg/dL Normal <=150 [facility] Comment on above: Performed By: #### U CLINT, CMP, LIPID, DBIL, PHOS, MG #### [facility] [address] [address] [address] Brea Causey VLDL CALC 12.0 mg/dL Normal [facility] Comment on above: Performed By: #### U CLINT, CMP, LIPID, DBIL, PHOS, MG #### [facility] [address] [address] [address] Brea Causey MAGNESIUMon 01-04-2022 Magnesium [Mass/Vol] 1.4 mg/dL Critically low 1.8-2.4 [facility] Comment on above: Performed By: #### U CLINT, CMP, LIPID, DBIL, PHOS, MG #### [facility] [address] [place] [address] Dr. Brea Causey PHOSPHORUSon 01-04-2022 Phosphate [Mass/Vol] 4.4 mg/dL Normal 2.6-4.7 [facility] Comment on above: Performed By: #### U CLINT, CMP, LIPID, DBIL, PHOS, MG #### [facility] [address] [place] [address] Dr. Brea Causey PROF 14(COMP METB)on 022 Albumin [Mass/Vol] 3.9 g/dL Normal 3.4-5.0 [facility] Comment on above: Performed By: #### U CLINT, CMP, LIPID, DBIL, PHOS, MG #### [facility] [address] [place] [address] Dr. Brea Causey Albumin/Globulin [Mass ratio] 1.2 {ratio} Normal [facility] Comment on above: Performed By: #### U CLINT, CMP, LIPID, DBIL, PHOS, MG #### [facility] [address] [place] [address] Dr. Brea Causey ALP [Catalytic activity/Vol] 155 U/L Critically high 46-116 [facility] Comment on above: Performed By: #### U CLINT, CMP, LIPID, DBIL, PHOS, MG #### [facility] [address] [place] [address] Dr. Brea Causey ALT [Catalytic activity/Vol] 27 U/L Normal 16-63 [facility] Comment on above: Performed By: #### U CLINT, CMP, LIPID, DBIL, PHOS, MG #### [facility] [address] [place] [address] Dr. Brea Causey Anion gap [Moles/Vol] 14.6 mmol/L Normal [facility] Comment on above: Performed By: #### U CLINT, CMP, LIPID, DBIL, PHOS, MG #### [facility] [address] [address] [address] Brea Causey AST [Catalytic activity/Vol] 17 U/L Normal 15-37 [facility] Comment on above: Performed By: #### U CLINT, CMP, LIPID, DBIL, PHOS, MG #### [facility] [address] [address] [address] Brea Causey Bilirubin [Mass/Vol] 0.3 mg/dL Normal 0.2-1.0 [facility] Comment on above: Performed By: #### U CLINT, CMP, LIPID, DBIL, PHOS, MG #### [facility] [address] [address] [address] Brea Causey Calcium [Mass/Vol] 8.1 mg/dL Critically low 8.5-10.1 [facility] e [facility] Comment on above: Performed By: #### U CLINT, CMP, LIPID, DBIL, PHOS, MG #### [facility] [address] [place] [address] Dr. Brea Causey Chloride [Moles/Vol] 99 mmol/L Normal 98-107 [facility] Comment on above: Performed By: #### U CLINT, CMP, LIPID, DBIL, PHOS, MG #### [facility] [address] [place] [address] Dr. Brea Causey CO2 [Moles/Vol] 25.0 mmol/L Normal 21.0-32.0 [facility] Comment on above: Performed By: #### U CLINT, CMP, LIPID, DBIL, PHOS, MG #### [facility] [address] [place] [address] Dr. Brea Causey Creatinine [Mass/Vol] 1.05 mg/dL Normal 0.70-1.30 [facility] Comment on above: Performed By: #### U CLINT, CMP, LIPID, DBIL, PHOS, MG #### [facility] [address] [place] [address] Dr. Brea Causey EGFR-AF INDONESIAN >60 Normal >=60 [facility] Comment on above: Performed By: #### U CLINT, CMP, LIPID, DBIL, PHOS, MG #### [facility] [address] [place] [address] Dr. Brea Causey EGFR-NON AF INDONESIAN >60 Normal >=60 [facility] Comment on above: Performed By: #### U CLINT, CMP, LIPID, DBIL, PHOS, MG #### [facility] [address] [place] [address] Dr. Brea Causey Globulin (S) [Mass/Vol] 3.2 g/dL Normal [facility] Comment on above: Performed By: #### U CLINT, CMP, LIPID, DBIL, PHOS, MG #### [facility] [address] [place] [address] Dr. Brea Causey Glucose [Mass/Vol] 177 mg/dL Critically high 74-106 [facility] Comment on above: Performed By: #### U CLINT, CMP, LIPID, DBIL, PHOS, MG #### [facility] [address] [place] [address] Dr. Brea Causey Potassium [Moles/Vol] 4.6 mmol/L Normal 3.5-5.1 [facility] Comment on above: Performed By: #### U CLINT, CMP, LIPID, DBIL, PHOS, MG #### [facility] [address] [place] [address] Dr. Brea Causey Protein [Mass/Vol] 7.1 g/dL Normal 6.4-8.2 [facility] Comment on above: Performed By: #### U CLINT, CMP, LIPID, DBIL, PHOS, MG #### [facility] [address] [place] [address] Dr. Brea Causey Sodium [Moles/Vol] 134 mmol/L Critically low 136-145 [facility] Comment on above: Performed By: #### U CLINT, CMP, LIPID, DBIL, PHOS, MG #### [facility] [address] [place] [address] Dr. Brea Causey Urea nitrogen [Mass/Vol] 14.0 mg/dL Normal 7.0-18.0 [facility] Comment on above: Performed By: #### U CLINT, CMP, LIPID, DBIL, PHOS, MG #### [facility] [address] [address] [address] Brea Causey Urea nitrogen/Creatinine [Mass ratio] 13.3 mg/mg Normal [facility] Comment on above: Performed By: #### U CLINT, CMP, LIPID, DBIL, PHOS, MG #### [facility] [address] [address] [address] Brea Causey URIC ACID SERUMon 01-04-2022 Urate [Mass/Vol] 7.6 mg/dL Critically high 3.5-7.2 [facility] Comment on above: Performed By: #### U CLINT, CMP, LIPID, DBIL, PHOS, MG #### [facility] [address] [place] [address] Dr. Brea Causey BK VIRUS PCR QUANTon 022 BKV DNA QUANT PCR PLASMA Negative Normal Negative [facility] Comment on above: Result Comment: No B K DNA detected. . The linear range of the assay is 22 - 100,000,000 IU/mL. Performed By: #### B KVIRUS #### [facility] [address] [place] [address] Dr. Brea Causey Log10 BKV DNA Plasma Normal [facility] Comment on above: Performed By: #### B KVIRUS #### [facility] [address] [place] [address] Dr. Brea Causey FK506 (TACROLIMUS) WHOLE BLO ODon 12-03-2021 Tacrolimus (FK506), Blood 5.6 ng/mL Normal 2.0-20.0 [facility] Comment on above: Result Comment: Trou gh (immediately following transplant) 15.0 . Trough (steady state, 2 weeks or more after transplant): 3.0 - 8.0 . Performed by LC-MS/MS technology. Performed By: #### U CLINT, CMP, LIPID, DBIL, PHOS, MG #### [facility] [address] [place] [address] Dr. Brea Causey TESTOSTERONE, FREE,DIRECT, T OTALon 12-03-2021 Free Testosterone(Direct) 7.5 pg/mL Normal 6.6-18.1 [facility] Comment on above: Result Comment: Perf ormed at: BN Performed By: #### U CLINT, CMP, LIPID, DBIL, PHOS, MG #### [facility] [address] [place] [address] Dr. Brea Causey Testosterone [Mass/Vol] 467 ng/dL Normal 264-916 [facility] Comment on above: Result Comment: Adul t male reference interval is based on a population of healthy nonobese males (BMI <30) between 19 and 39 years old. daniel Harris.al. JCEM 2017,102;[id number]. PMID: [id number]. Performed at: CB Performed By: #### U CLINT, CMP, LIPID, DBIL, PHOS, MG #### [facility] [address] [place] [address] Dr. Brea Causey BILIRUBIN CONJUGATED (DIRECT )on 11-30-2021 BILI, CONJUGATED 0.2 mg/dL Normal 0.0-0.2 [facility] Comment on above: Performed By: #### B KVIRUS #### [facility] [address] [place] [address] Dr. Brea Causey CBC AUTO DIFFon 11-30-2021 BASO # 0.0 103/ul Normal 0.0-0.1 [facility] Comment on above: Performed By: #### U CLINT, CMP, LIPID, DBIL, PHOS, MG #### [facility] [address] [place] [address] Dr. Brea Causey Basophils/100 WBC (Bld) 0.6 % Normal 0.2-2.0 [facility] Comment on above: Performed By: #### U CLINT, CMP, LIPID, DBIL, PHOS, MG #### [facility] [address] [place] [address] Dr. Brea Causey EO # 0.2 103/ul Normal 0.0-0.7 [facility] Comment on above: Performed By: #### U CLINT, CMP, LIPID, DBIL, PHOS, MG #### [facility] [address] [place] [address] Dr. Brea Causey Eosinophils/100 WBC (Bld) 2.7 % Normal 0.9-7.0 [facility] Comment on above: Performed By: #### U CLINT, CMP, LIPID, DBIL, PHOS, MG #### [facility] [address] [place] [address] Dr. Brea Causey Erythrocyte distribution width (RBC) [Ratio] 13.0 % Normal 11.0-15.0 [facility] Comment on above: Performed By: #### U CLINT, CMP, LIPID, DBIL, PHOS, MG #### [facility] [address] [address] [address] Brea Causey Hematocrit (Bld) [Volume fraction] 37.6 % Critically low 42.0-54.0 [facility] Comment on above: Performed By: #### U CLITN, CMP, LIPID, DBIL, PHOS, MG #### [facility] [address] [place] [address] Dr. Brea Causey Hemoglobin (Bld) [Mass/Vol] 12.4 g/dL Critically low 14.0-18.0 [facility] Comment on above: Performed By: #### U CLINT, CMP, LIPID, DBIL, PHOS, MG #### [facility] [address] [place] [address] Dr. Brea Causey IG # 0.06 10e3/ul Critically high 0.00-0.03 [facility] Comment on above: Performed By: #### U CLINT, CMP, LIPID, DBIL, PHOS, MG #### [facility] [address] [place] [address] Dr. Brea Causey IG % 0.9 % Critically high 0.0-0.5 [facility] Comment on above: Performed By: #### U CLINT, CMP, LIPID, DBIL, PHOS, MG #### [facility] [address] [place] [address] Dr. Brea Causey LYMPH # 1.0 103/ul Critically low 1.2-3.8 [facility] Comment on above: Performed By: #### U CLINT, CMP, LIPID, DBIL, PHOS, MG #### [facility] [address] [place] [address] Dr. Brea Causey Lymphocytes/100 WBC (Bld) 14.6 % Critically low 20.5-60.0 [facility] Comment on above: Performed By: #### U CLINT, CMP, LIPID, DBIL, PHOS, MG #### [facility] [address] [place] [address] Dr. Brea Causey MANUAL DIFF REQ NO Normal [facility] Comment on above: Performed By: #### U CLINT, CMP, LIPID, DBIL, PHOS, MG #### [facility] [address] [place] [address] Dr. Brea Causey MCH (RBC) [Entitic mass] 29.4 pg Normal 25.9-34.0 [facility] Comment on above: Performed By: #### U CLINT, CMP, LIPID, DBIL, PHOS, MG #### [facility] [address] [place] [address] Dr. Brea Causey MCHC (RBC) [Mass/Vol] 33.0 g/dL Normal 29.9-35.2 [facility] Comment on above: Performed By: #### U CLINT, CMP, LIPID, DBIL, PHOS, MG #### [facility] [address] [place] [address] Dr. Brea Causey MCV (RBC) [Entitic vol] 89.1 fL Normal 80.0-94.0 [facility] Comment on above: Performed By: #### U CLINT, CMP, LIPID, DBIL, PHOS, MG #### [facility] [address] [place] [address] Dr. Brea Causey MONO # 0.7 103/ul Normal 0.3-0.8 [facility] Comment on above: Performed By: #### U CLINT, CMP, LIPID, DBIL, PHOS, MG #### [facility] [address] [place] [address] Dr. Brea Causey Monocytes/100 WBC (Bld) 10.0 % Normal 1.7-12.0 [facility] Comment on above: Performed By: #### U CLINT, CMP, LIPID, DBIL, PHOS, MG #### [facility] [address] [address] [address] Brea Causey NEUT # 4.8 103/ul Normal 1.4-6.5 [facility] Comment on above: Performed By: #### U CLINT, CMP, LIPID, DBIL, PHOS, MG #### [facility] [address] [address] [address] Brea Causey Neutrophils/100 WBC (Bld) 71.2 % Normal 43.0-75.0 [facility] Comment on above: Performed By: #### U CLINT, CMP, LIPID, DBIL, PHOS, MG #### [facility] [address] [address] [address] Brea Causey Platelet mean volume (Bld) [Entitic vol] 9.0 fL Critically low 9.5-13.5 [facility] Comment on above: Performed By: #### U CLINT, CMP, LIPID, DBIL, PHOS, MG #### [facility] [address] [address] [address] Brea Causey PLT 280 103/ul Normal 150-450 [facility] Comment on above: Performed By: #### U CLINT, CMP, LIPID, DBIL, PHOS, MG #### [facility] [address] [place] [address] Dr. Brea Causey RBC 4.22 106/ul Critically low 4.70-6.10 [facility] Comment on above: Performed By: #### U CLINT, CMP, LIPID, DBIL, PHOS, MG #### [facility] [address] [address] [address] Brea Causey WBC 6.7 103/ul Normal 4.0-11.0 [facility] Comment on above: Performed By: #### U CLINT, CMP, LIPID, DBIL, PHOS, MG #### [facility] [address] [address] [address] Brea Causey GLYCOHEMOGLOBIN A1Con 2021 ADA RECOMMENDATION SEE BELOW Normal [facility] Comment on above: Result Comment: ADA RECOMMENDED LIMIT 4.0 - 6.0 ADA THERAPEUTIC TARGET < 7.0 ACTION SUGGESTED > 7.0 Performed By: #### B KVIRUS #### [facility] [address] [place] [address] Dr. Brea Causey Glucose [Mass/Vol] 171 mg/dL Normal [facility] Comment on above: Performed By: #### B KVIRUS #### [facility] [address] [place] [address] Dr. Brea Causey HbA1c (Bld) [Mass fraction] 7.6 % Critically high 4.5-6.2 [facility] Comment on above: Performed By: #### B KVIRUS #### [facility] [address] [place] [address] Dr. Brea Causey LIPID PROFILEon 11-30-2021 CHOL-HDL RATIO NORM SEE BELOW Normal [facility] Comment on above: Result Comment: 3.3 - 4.4 LOW RISK 4.4 - 7.1 AVERAGE RISK 7.1 - 11.0 MODERATE RISK >11.0 HIGH RISK Performed By: #### C BC #### [facility] [address] [place] [address] Dr. Brea Causey Cholesterol [Mass/Vol] 75 mg/dL Normal <=200 [facility] Comment on above: Performed By: #### C BC #### [facility] [address] [place] [address] Dr. Brea Causey Cholesterol in HDL [Mass/Vol] 41 mg/dL Normal 40-60 [facility] Comment on above: Performed By: #### C BC #### [facility] [address] [place] [address] Dr. Brea Causey Cholesterol in LDL [Mass/Vol] 18.6 mg/dL Normal [facility] Comment on above: Performed By: #### C BC #### [facility] [address] [place] [address] Dr. Brea Causey Cholesterol.total/Cho lesterol in HDL [Mass ratio] 1.8 {ratio} Normal [facility] Comment on above: Performed By: #### C BC #### [facility] [address] [address] [address] Brea Causey HDL NORMAL > or = 60 mg/dl - LO W CARDIOVASCULAR RISK <40 mg/dl - HIGH CARDIOVASCULAR RISK Normal [facility] Comment on above: Performed By: #### C BC #### [facility] [address] [address] [address] Brea Causey LDL CALC NORMAL SEE BELOW Normal [facility] Comment on above: Result Comment: <100 mg/dl OPTIMAL 100 - 129 mg/dl NEAR OR ABOVE OPTIMAL 130 - 159 mg/dl BORDERLINE HIGH 160 - 189 mg/dl HIGH >190 mg/dl VERY HIGH Performed By: #### C BC #### [facility] [address] [address] [address] Brea Causey Triglyceride [Mass/Vol] 77 mg/dL Normal <=150 [facility] Comment on above: Performed By: #### C BC #### [facility] [address] [place] [address] Dr. Brea Causey VLDL CALC 15.4 mg/dL Normal [facility] Comment on above: Performed By: #### C BC #### [facility] [address] [address] [address] Brea Causey MAGNESIUMon 11-30-2021 Magnesium [Mass/Vol] 1.4 mg/dL Critically low 1.8-2.4 [facility] Comment on above: Performed By: #### B KVIRUS #### [facility] [address] [place] [address] Dr. Brea Causey PHOSPHORUSon 11-30-2021 Phosphate [Mass/Vol] 4.1 mg/dL Normal 2.6-4.7 [facility] Comment on above: Performed By: #### C BC #### [facility] [address] [place] [address] Dr. Brea Causey PROF 14(COMP METB)on 022 Albumin [Mass/Vol] 4.2 g/dL Normal 3.4-5.0 [facility] Comment on above: Performed By: #### C BC #### [facility] [address] [place] [address] Dr. Brea Causey Albumin/Globulin [Mass ratio] 1.3 {ratio} Normal [facility] Comment on above: Performed By: #### C BC #### [facility] [address] [place] [address] Dr. Brea Causey ALP [Catalytic activity/Vol] 148 U/L Critically high 46-116 [facility] Comment on above: Performed By: #### C BC #### [facility] [address] [place] [address] Dr. Brea Causey ALT [Catalytic activity/Vol] 36 U/L Normal 16-63 [facility] Comment on above: Performed By: #### C BC #### [facility] [address] [place] [address] Dr. Brea Causey Anion gap [Moles/Vol] 14.7 mmol/L Normal [facility] Comment on above: Performed By: #### C BC #### [facility] [address] [place] [address] Dr. Brea Causey AST [Catalytic activity/Vol] 21 U/L Normal 15-37 [facility] Comment on above: Performed By: #### C BC #### [facility] [address] [place] [address] Dr. Brea Causey Bilirubin [Mass/Vol] 0.4 mg/dL Normal 0.2-1.0 [facility] Comment on above: Performed By: #### C BC #### [facility] [address] [place] [address] Dr. Brea Causey Calcium [Mass/Vol] 8.3 mg/dL Critically low 8.5-10.1 [facility] Comment on above: Performed By: #### C BC #### [facility] [address] [place] [address] Dr. Brea Causey Chloride [Moles/Vol] 98 mmol/L Normal 98-107 [facility] Comment on above: Performed By: #### C BC #### [facility] [address] [place] [address] Dr. Brea Causey CO2 [Moles/Vol] 27.2 mmol/L Normal 21.0-32.0 [facility] Comment on above: Performed By: #### C BC #### [facility] [address] [address] [address] Brea Causey Creatinine [Mass/Vol] 1.10 mg/dL Normal 0.70-1.30 [facility] Comment on above: Performed By: #### C BC #### [facility] [address] [address] [address] Brea Causey EGFR-AF INDONESIAN >60 Normal >=60 [facility] Comment on above: Performed By: #### C BC #### [facility] [address] [address] [address] Brea Causey EGFR-NON AF INDONESIAN >60 Normal >=60 [facility] Comment on above: Performed By: #### C BC #### [facility] [address] [place] [address] Dr. Brea Causey Globulin (S) [Mass/Vol] 3.2 g/dL Normal [facility] Comment on above: Performed By: #### C BC #### [facility] [address] [place] [address] Dr. Brea Causey Glucose [Mass/Vol] 173 mg/dL Critically high 74-106 [facility] Comment on above: Performed By: #### C BC #### [facility] [address] [place] [address] Dr. Brea Causey Potassium [Moles/Vol] 4.9 mmol/L Normal 3.5-5.1 [facility] Comment on above: Performed By: #### C BC #### [facility] [address] [place] [address] Dr. Brea Causey Protein [Mass/Vol] 7.4 g/dL Normal 6.4-8.2 [facility] Comment on above: Performed By: #### C BC #### [facility] [address] [place] [address] Dr. Brea Causey Sodium [Moles/Vol] 135 mmol/L Critically low 136-145 [facility] Comment on above: Performed By: #### C BC #### [facility] [address] [place] [address] Dr. Brea Causey Urea nitrogen [Mass/Vol] 14.0 mg/dL Normal 7.0-18.0 [facility] Comment on above: Performed By: #### C BC #### [facility] [address] [place] [address] Dr. Brea Causey Urea nitrogen/Creatinine [Mass ratio] 12.7 mg/mg Normal [facility] Comment on above: Performed By: #### C BC #### [facility] [address] [place] [address] Dr. Brea Causey URIC ACID SERUMon 11-30-2021 Urate [Mass/Vol] 7.8 mg/dL Critically high 3.5-7.2 [facility] Comment on above: Performed By: #### C BC #### [facility] [address] [place] [address] Dr. Brea Causey BNPon 11-14-2021 Natriuretic peptide B (Bld) [Mass/Vol] 350.0 pg/mL Normal <=900.0 [facility] Comment on above: Performed By: #### C BC #### [facility] [address] [place] [address] Dr. Brea Causey CBC AUTO DIFFon 11-14-2021 BASO # 0.0 103/ul Normal 0.0-0.1 [facility] Comment on above: Performed By: #### C BC #### [facility] [address] [place] [address] Dr. Brea Causey Basophils/100 WBC (Bld) 0.1 % Critically low 0.2-2.0 [facility] Comment on above: Performed By: #### C BC #### [facility] [address] [place] [address] Dr. Brea Causey EO # 0.2 103/ul Normal 0.0-0.7 [facility] Comment on above: Performed By: #### C BC #### [facility] [address] [place] [address] Dr. Brea Causey Eosinophils/100 WBC (Bld) 1.4 % Normal 0.9-7.0 [facility] Comment on above: Performed By: #### C BC #### [facility] [address] [place] [address] Dr. Brea Causey Erythrocyte distribution width (RBC) [Ratio] 13.1 % Normal 11.0-15.0 [facility] Comment on above: Performed By: #### C BC #### [facility] [address] [place] [address] Dr. Brea Causey Hematocrit (Bld) [Volume fraction] 39.4 % Critically low 42.0-54.0 [facility] Comment on above: Performed By: #### C BC #### [facility] [address] [place] [address] Dr. Brea Causey Hemoglobin (Bld) [Mass/Vol] 13.2 g/dL Critically low 14.0-18.0 [facility] Comment on above: Performed By: #### C BC #### [facility] [address] [place] [address] Dr. Brea Causey IG # 0.11 10e3/ul Critically high 0.00-0.03 [facility] Comment on above: Performed By: #### C BC #### [facility] [address] [place] [address] Dr. Brea Causey IG % 0.6 % Critically high 0.0-0.5 [facility] Comment on above: Performed By: #### C BC #### [facility] [address] [place] [address] Dr. Brea Causey LYMPH # 1.1 103/ul Critically low 1.2-3.8 [facility] Comment on above: Performed By: #### C BC #### [facility] [address] [place] [address] Dr. Brae Causey Lymphocytes/100 WBC (Bld) 6.7 % Critically low 20.5-60.0 [facility] Comment on above: Performed By: #### C BC #### [facility] [address] [place] [address] Dr. Brea Causey MANUAL DIFF REQ NO Normal [facility] Comment on above: Performed By: #### C BC #### [facility] [address] [address] [address] Brea Causey MCH (RBC) [Entitic mass] 29.5 pg Normal 25.9-34.0 [facility] Comment on above: Performed By: #### C BC #### [facility] [address] [address] [address] Brea Causey MCHC (RBC) [Mass/Vol] 33.5 g/dL Normal 29.9-35.2 [facility] Comment on above: Performed By: #### C BC #### [facility] [address] [place] [address] Dr. Brea Causey MCV (RBC) [Entitic vol] 88.1 fL Normal 80.0-94.0 [facility] Comment on above: Performed By: #### C BC #### [facility] [address] [place] [address] Dr. Brea Causey MONO # 1.5 103/ul Critically high 0.3-0.8 [facility] Comment on above: Performed By: #### C BC #### [facility] [address] [place] [address] Dr. Brea Causey Monocytes/100 WBC (Bld) 8.6 % Normal 1.7-12.0 [facility] Comment on above: Performed By: #### C BC #### [facility] [address] [place] [address] Dr. Brea Causey NEUT # 14.0 103/ul Critically high 1.4-6.5 [facility] Comment on above: Performed By: #### C BC #### [facility] [address] [place] [address] Dr. Brea Causey Neutrophils/100 WBC (Bld) 82.6 % Critically high 43.0-75.0 [facility] Comment on above: Performed By: #### C BC #### [facility] [address] [place] [address] Dr. Brea Causey Platelet mean volume (Bld) [Entitic vol] 9.5 fL Normal 9.5-13.5 [facility] Comment on above: Performed By: #### C BC #### [facility] [address] [address] [address] Brea Causey PLT 303 103/ul Normal 150-450 [facility] Comment on above: Performed By: #### C BC #### [facility] [address] [address] [address] Brea Causey RBC 4.47 106/ul Critically low 4.70-6.10 [facility] Comment on above: Performed By: #### C BC #### [facility] [address] [address] [address] Brea Causey WBC 17.0 103/ul Critically high 4.0-11.0 [facility] Comment on above: Performed By: #### C BC #### [facility] [address] [place] [address] Dr. Brea Causey Covid-19 PCR ([facility])on SARS-CoV-2 (COVID-19) RNA ISI+probe Ql (Unsp spec) Not detected Normal NOT DETECTED [facility] Comment on above: Result Comment: When [...] for this test is supported by the [place] of Health and Human Service's declaration that [...] CLINT, CMP, LIPID, DBIL, PHOS, MG #### [facility] [address] [address] [address] Brea Causey ER URINE PROFILEon 2 Bilirubin Ql (U) Negative Normal NEGATIVE [facility] Comment on above: Performed By: #### U CLINT, CMP, LIPID, DBIL, PHOS, MG #### [facility] [address] [address] [address] Brea Causey Clarity (U) CLEAR Normal CLEAR [facility] Comment on above: Performed By: #### U CLINT, CMP, LIPID, DBIL, PHOS, MG #### [facility] [address] [place] [address] Dr. Brea Causey Color (U) YELLOW Normal YELLOW [facility] Comment on above: Performed By: #### U CLINT, CMP, LIPID, DBIL, PHOS, MG #### [facility] [address] [place] [address] Dr. Brea GORDON A micrscopic examination will be performed if indicated. Normal [facility] Comment on above: Performed By: #### U CLINT, CMP, LIPID, DBIL, PHOS, MG #### [facility] [address] [place] [address] Dr. Brea Causey Glucose Ql (U) Negative Normal NEGATIVE [facility] Comment on above: Performed By: #### U CLINT, CMP, LIPID, DBIL, PHOS, MG #### [facility] [address] [place] [address] Dr. Brea Causey Hemoglobin Ql (U) Negative Normal NEGATIVE [facility] Comment on above: Performed By: #### U CLINT, CMP, LIPID, DBIL, PHOS, MG #### [facility] [address] [place] [address] Dr. Brea Causey Ketones Ql (U) Negative Normal NEGATIVE [facility] Comment on above: Performed By: #### U CLINT, CMP, LIPID, DBIL, PHOS, MG #### [facility] [address] [place] [address] Dr. Brea Causey LEUKOCYTES Negative Normal NEGATIVE [facility] Comment on above: Performed By: #### U CLINT, CMP, LIPID, DBIL, PHOS, MG #### [facility] [address] [address] [address] Brea Causey Nitrite Ql (U) Negative Normal NEGATIVE [facility] Comment on above: Performed By: #### U CLINT, CMP, LIPID, DBIL, PHOS, MG #### [facility] [address] [address] [address] Brea Causey pH (U) 6.0 [pH] Normal 5-9 [facility] Comment on above: Performed By: #### U CLINT, CMP, LIPID, DBIL, PHOS, MG #### [facility] [address] [place] [address] Dr. Brea Causey SPEC GRAVITY <=1.005 Abnormal 1.005-<=1.025 [facility] Comment on above: Performed By: #### U CLINT, CMP, LIPID, DBIL, PHOS, MG #### [facility] [address] [place] [address] Dr. Brea Causey UA PROTEIN Negative Normal NEGATIVE/ TRACE [facility] Comment on above: Performed By: #### U CLINT, CMP, LIPID, DBIL, PHOS, MG #### [facility] [address] [place] [address] Dr. Brea Causey UR MICRO IND NOT INDICATED Normal [facility] Comment on above: Performed By: #### U CLINT, CMP, LIPID, DBIL, PHOS, MG #### [facility] [address] [place] [address] Dr. Brea Causey Urobilinogen Qn (U) 0.2 {Sabine'U}/dL Normal 0.2 - 1. 0 [facility] Comment on above: Performed By: #### U CLINT, CMP, LIPID, DBIL, PHOS, MG #### [facility] [address] [place] [address] Dr. Brea Causey GI PANEL (PCR)on 11-14-2021 Adenovirus F 40/41 Not detected Normal NOT DETECTED [facility] Comment on above: Performed By: #### U CLINT, CMP, LIPID, DBIL, PHOS, MG #### [facility] [address] [address] [address] Brea Causey Astrovirus Not detected Normal NOT DETECTED [facility] Comment on above: Performed By: #### U CLINT, CMP, LIPID, DBIL, PHOS, MG #### [facility] [address] [address] [address] Brea Causey C. Diff toxin A/B Not detected Normal NOT DETECTED [facility] Comment on above: Performed By: #### U CLINT, CMP, LIPID, DBIL, PHOS, MG #### [facility] [address] [address] [address] Brea Causey Campylobacter Not detected Normal NOT DETECTED [facility] Comment on above: Performed By: #### U CLINT, CMP, LIPID, DBIL, PHOS, MG #### [facility] [address] [address] [address] Brea Causey Cryptosporidium Not detected Normal NOT DETECTED [facility] Comment on above: Performed By: #### U CLINT, CMP, LIPID, DBIL, PHOS, MG #### [facility] [address] [address] [address] Brea Causey Cyclos. Cayetanensis Not detected Normal NOT DETECTED [facility] Comment on above: Performed By: #### U CLINT, CMP, LIPID, DBIL, PHOS, MG #### [facility] [address] [address] [address] Brea Causey E. Coli O157 Not Applicable Normal Not Applicable [facility] Comment on above: Performed By: #### U CLINT, CMP, LIPID, DBIL, PHOS, MG #### [facility] [address] [address] [address] Brea Causey E. histolytica Not detected Normal NOT DETECTED [facility] Comment on above: Performed By: #### U CLINT, CMP, LIPID, DBIL, PHOS, MG #### [facility] [address] [address] [address] Brea Causey EAEC Not detected Normal NOT DETECTED [facility] Comment on above: Performed By: #### U CLINT, CMP, LIPID, DBIL, PHOS, MG #### [facility] [address] [address] [address] Brea Causey EIEC Not detected Normal NOT DETECTED [facility] Comment on above: Performed By: #### U CLINT, CMP, LIPID, DBIL, PHOS, MG #### [facility] [address] [address] [address] Brea Causey EPEC Not detected Normal NOT DETECTED [facility] Comment on above: Performed By: #### U CLINT, CMP, LIPID, DBIL, PHOS, MG #### [facility] [address] [address] [address] Brea Causey ETEC Not detected Normal NOT DETECTED [facility] Comment on above: Performed By: #### U CLINT, CMP, LIPID, DBIL, PHOS, MG #### [facility] [address] [address] [address] Brea River. Lamblia Not detected Normal NOT DETECTED [facility] Comment on above: Performed By: #### U CLINT, CMP, LIPID, DBIL, PHOS, MG #### [facility] [address] [address] [address] Brea LEZAMA CONTROLS PASSED Normal [facility] Comment on above: Performed By: #### U CLINT, CMP, LIPID, DBIL, PHOS, MG #### [facility] [address] [address] [address] rBea [facility] HEADER GI PANEL BACTERIA Normal [facility] Comment on above: Performed By: #### U CLINT, CMP, LIPID, DBIL, PHOS, MG #### [facility] [address] [address] [address] Brea PINTO ECOLI GI PANEL DIARRHEAGENIC E.COLI / SHIGELLA Normal [facility] Comment on above: Performed By: #### U CLINT, CMP, LIPID, DBIL, PHOS, MG #### [facility] [address] [address] [address] Brea PINTO INFO SEE BELOW Normal [facility] Comment on above: Result Comment: EAEC - Enteroaggregative E. Coli EPEC- Enteropathogenic E. Coli ETEC- Enterotoxigenic E. Coli lt/st STEC- Shigella-like toxin-producing E. Coli stx1/stx2 EIEC- Shigella/Enteroinvasive E. Coli Performed By: #### U CLINT, CMP, LIPID, DBIL, PHOS, MG #### [facility] [address] [address] [address] Brea PINTO PARASITES GI PANEL PARASITES Normal [facility] Comment on above: Performed By: #### U CLINT, CMP, LIPID, DBIL, PHOS, MG #### [facility] [address] [address] [address] Brea PINTO VIRUS GI PANEL VIRUSES Normal [facility] Comment on above: Performed By: #### U CLINT, CMP, LIPID, DBIL, PHOS, MG #### [facility] [address] [place] [address] Dr. Brea Causey Norovirus GI/GII Not detected Normal NOT DETECTED [facility] Comment on above: Performed By: #### U CLINT, CMP, LIPID, DBIL, PHOS, MG #### [facility] [address] [place] [address] Dr. Brea Causey P. Shigelloides Not detected Normal NOT DETECTED [facility] Comment on above: Performed By: #### U CLINT, CMP, LIPID, DBIL, PHOS, MG #### [facility] [address] [place] [address] Dr. Brea Causey Rotavirus A Not detected Normal NOT DETECTED [facility] Comment on above: Performed By: #### U CLINT, CMP, LIPID, DBIL, PHOS, MG #### [facility] [address] [address] [address] Brea Causey Salmonella Not detected Normal NOT DETECTED [facility] Comment on above: Performed By: #### U CLINT, CMP, LIPID, DBIL, PHOS, MG #### [facility] [address] [address] [address] Brea Causey Sapovirus Not detected Normal NOT DETECTED [facility] Comment on above: Performed By: #### U CLINT, CMP, LIPID, DBIL, PHOS, MG #### [facility] [address] [place] [address] Dr. Brea Causey STEC Not detected Normal NOT DETECTED [facility] Comment on above: Performed By: #### U CLINT, CMP, LIPID, DBIL, PHOS, MG #### [facility] [address] [place] [address] Dr. Brea Causey Vibrio Not detected Normal NOT DETECTED [facility] Comment on above: Performed By: #### U CLINT, CMP, LIPID, DBIL, PHOS, MG #### [facility] [address] [place] [address] Dr. Brea Causey Vibrio Cholera Not detected Normal NOT DETECTED [facility] Comment on above: Performed By: #### U CLINT, CMP, LIPID, DBIL, PHOS, MG #### [facility] [address] [place] [address] Dr. Brea Causey Y. Enterocolitica Not detected Normal NOT DETECTED [facility] Comment on above: Performed By: #### U CLINT, CMP, LIPID, DBIL, PHOS, MG #### [facility] [address] [place] [address] Dr. Brea Causey PROF 14(COMP METB)on 022 Albumin [Mass/Vol] 4.0 g/dL Normal 3.4-5.0 [facility] Comment on above: Performed By: #### C BC #### [facility] [address] [place] [address] Dr. Brea Causey Albumin/Globulin [Mass ratio] 1.3 {ratio} Normal [facility] Comment on above: Performed By: #### C BC #### [facility] [address] [place] [address] Dr. Brea Causey ALP [Catalytic activity/Vol] 142 U/L Critically high 46-116 [facility] Comment on above: Performed By: #### C BC #### [facility] [address] [place] [address] Dr. Brea Causey ALT [Catalytic activity/Vol] 39 U/L Normal 16-63 [facility] Comment on above: Performed By: #### C BC #### [facility] [address] [place] [address] Dr. Brea Causey Anion gap [Moles/Vol] 13.6 mmol/L Normal [facility] Comment on above: Performed By: #### C BC #### [facility] [address] [address] [address] Brea Causey AST [Catalytic activity/Vol] 23 U/L Normal 15-37 [facility] Comment on above: Performed By: #### C BC #### [facility] [address] [place] [address] Dr. Brea Causey Bilirubin [Mass/Vol] 0.4 mg/dL Normal 0.2-1.0 [facility] Comment on above: Performed By: #### C BC #### [facility] [address] [place] [address] Dr. Brea Causey Calcium [Mass/Vol] 8.4 mg/dL Critically low 8.5-10.1 [facility] Comment on above: Performed By: #### C BC #### [facility] [address] [place] [address] Dr. Brea Causey Chloride [Moles/Vol] 97 mmol/L Critically low 98-107 [facility] Comment on above: Performed By: #### C BC #### [facility] [address] [place] [address] Dr. Brea Causey CO2 [Moles/Vol] 26.1 mmol/L Normal 21.0-32.0 [facility] Comment on above: Performed By: #### C BC #### [facility] [address] [place] [address] Dr. Brea Causey Creatinine [Mass/Vol] 1.21 mg/dL Normal 0.70-1.30 [facility] Comment on above: Performed By: #### C BC #### [facility] [address] [place] [address] Dr. Brea Causey EGFR-AF INDONESIAN >60 Normal >=60 [facility] Comment on above: Performed By: #### C BC #### [facility] [address] [address] [address] Brea Causey EGFR-NON AF INDONESIAN 59 mL/min/1.73m2 Critically low >=60 [facility] Comment on above: Performed By: #### C BC #### [facility] [address] [address] [address] Brea Causey Globulin (S) [Mass/Vol] 3.2 g/dL Normal [facility] Comment on above: Performed By: #### C BC #### [facility] [address] [address] [address] Brea Causey Glucose [Mass/Vol] 227 mg/dL Critically high 74-106 [facility] Comment on above: Performed By: #### C BC #### [facility] [address] [address] [address] Brea Causey Potassium [Moles/Vol] 4.7 mmol/L Normal 3.5-5.1 [facility] Comment on above: Performed By: #### C BC #### [facility] [address] [address] [address] Brea Causey Protein [Mass/Vol] 7.2 g/dL Normal 6.4-8.2 [facility] Comment on above: Performed By: #### C BC #### [facility] [address] [address] [address] Brea Causey Sodium [Moles/Vol] 132 mmol/L Critically low 136-145 [facility] Comment on above: Performed By: #### C BC #### [facility] [address] [address] [address] Brea Causey Urea nitrogen [Mass/Vol] 12.0 mg/dL Normal 7.0-18.0 [facility] Comment on above: Performed By: #### C BC #### [facility] [address] [address] [address] Brea Causey Urea nitrogen/Creatinine [Mass ratio] 9.9 mg/mg Normal [facility] Comment on above: Performed By: #### C BC #### [facility] [address] [place], [place] [address] Dr. Brea Causey CBC W/DIFFon 10-31-2021 ABS IMM GRANS 0.1 10*3/uL Normal 0.0-0.2 [facility] Comment on above: Performed By: #### 4 5506, 68530, 49515, 47026, 72468, 66535 #### [facility] [address] [facility] [address], [place] ABS NEUTROPHILS 5.9 10*3/uL Normal 1.6-7.6 [facility] Comment on above: Performed By: #### 4 5506, 24290, 01181, 13237, 90827, 86813 #### [facility] [address] [facility] [address], [place] Basophils (Bld) [#/Vol] 0.0 10*3/uL Normal 0.0-0.2 [facility] Comment on above: Performed By: #### 4 5506, 55845, 72199, 20400, 21523, 57348 #### [facility] [address] [facility] [address], [place] Basophils/100 WBC (Bld) 0.3 % Normal 0.0-1.0 [facility] Comment on above: Performed By: #### 4 5506, 58912, 99304, 70249, 46079, 93217 #### [facility] [address] [facility] [address], [place] Eosinophils (Bld) [#/Vol] 0.2 10*3/uL Normal 0.0-0.5 [facility] Comment on above: Performed By: #### 4 5506, 17186, 23853, 40503, 03413, 65298 #### [facility] [address] [place] [address], [place] Eosinophils/100 WBC (Bld) 2.3 % Normal 0.0-6.0 [facility] Comment on above: Performed By: #### 4 5506, 25882, 77810, 54095, 22687, 84136 #### [facility] [address] [facility]. [address] Erythrocyte distribution width (RBC) [Ratio] 13.4 % Normal 11.5-15.0 [facility] Comment on above: Performed By: #### 4 5506, 79279, 73658, 67101, 02639, 73913 #### [facility] [address] [facility]. [address] Hematocrit (Bld) [Volume fraction] 36.1 % Low 39.0-50.0 [facility] Comment on above: Performed By: #### 4 5506, 23826, 73521, 27856, 59426, 65268 #### [facility] [address] [facility] [address] Hemoglobin (Bld) [Mass/Vol] 11.9 g/dL Low 13.0-17.0 [facility] Comment on above: Performed By: #### 4 5506, 73998, 56775, 26872, 12853, 75067 #### [facility] [address] [facility]. [address] IMMATURE GRANS 0.7 % Normal 0.0-1.0 [facility] Comment on above: Performed By: #### 4 5506, 66041, 39122, 22073, 73979, 32658 #### [facility] [address] [facility]. [address] Lymphocytes (Bld) [#/Vol] 0.9 10*3/uL Low 1.2-4.0 [facility] Comment on above: Performed By: #### 4 5506, 29933, 41935, 09995, 16201, 34112 #### [facility] [address] [facility] [address] Lymphocytes/100 WBC (Bld) 12.1 % Low 20.0-45.0 [facility] Comment on above: Performed By: #### 4 5506, 76482, 50384, 75141, 86763, 66334 #### [facility] [address] [place] [address], [place] MCH (RBC) [Entitic mass] 29.3 pg Normal 27.0-33.0 [facility] Comment on above: Performed By: #### 4 5506, 17288, 93739, 77485, 63701, 50427 #### [facility] [address] [facility] [address] MCHC (RBC) [Mass/Vol] 33.0 g/dL Normal 32.0-35.0 [facility] Comment on above: Performed By: #### 4 5506, 71633, 00769, 66256, 14940, 66928 #### [facility] [address] [facility] [address] MCV (RBC) [Entitic vol] 88.9 fL Normal 82.0-98.0 [facility] Comment on above: Performed By: #### 4 5506, 43477, 58602, 58211, 12678, 11379 #### [facility] [address] [facility] [place] [address], [place] Monocytes (Bld) [#/Vol] 0.6 10*3/uL Normal 0.1-1.0 [facility] Comment on above: Performed By: #### 4 5506, 10082, 63419, 12906, 59499, 57540 #### [facility] [address] [facility] [place] [address], [place] MONOS 8.3 % Normal 5.0-12.0 [facility] Comment on above: Performed By: #### 4 5506, 17165, 00988, 11621, 88122, 93559 #### [facility] [address] [place] [address], [place] Neutrophils/100 WBC (Bld) 76.3 % High 40.0-72.0 [facility] Comment on above: Performed By: #### 4 5506, 06620, 31522, 00847, 04554, 47754 #### [facility] [address] [facility] [place] [place] [address], [place] Nucleated RBC/100 WBC (Bld) [Ratio] 0 % Normal 0-0 [facility] Comment on above: Performed By: #### 4 5506, 85465, 16583, 78234, 91806, 49587 #### [facility] [address] [facility] [place] [place] [address], [place] PLAT CNT 260 10*3/uL Normal 150-400 [facility] Comment on above: Performed By: #### 4 5506, 48858, 56632, 95093, 91269, 73378 #### [facility] [address] [place] [address], [place] RBC (Bld) [#/Vol] 4.06 10*6/uL Low 4.20-5.70 [facility] Comment on above: Performed By: #### 4 5506, 33695, 08691, 78905, 18848, 55297 #### [facility] [address] [facility] [place] [address], [place] WBC (Bld) [#/Vol] 7.68 10*3/uL Normal 4.00-10.60 [facility] Comment on above: Performed By: #### 4 5506, 39215, 20267, 25746, 58252, 99042 #### [facility] [address] [facility] [place] [address], [place] COMP METABOLIC PANELon 10-31 Albumin [Mass/Vol] 4.4 g/dL Normal 3.5-5.7 [facility] Comment on above: Performed By: #### 4 5506, 05144, 56935, 83591, 19327, 47862 #### [facility] [address] [place] [address], [place] ALKALINE PHOSPH 132 IU/L High 34-104 [facility] Comment on above: Performed By: #### 4 5506, 70889, 43274, 38168, 93941, 21632 #### [facility] [address] [place] [address], [place] ALT [Catalytic activity/Vol] 26 U/L Normal 7-52 [facility] Comment on above: Performed By: #### 4 5506, 97626, 59272, 68211, 04534, 10891 #### [facility] [address] [place] [address], [place] AST [Catalytic activity/Vol] 17 U/L Normal 13-39 [facility] Comment on above: Performed By: #### 4 5506, 20705, 64759, 91755, 41818, 86174 #### [facility] [address] [place] [address], [place] Bilirubin [Mass/Vol] 0.4 mg/dL Normal 0.3-1.0 [facility] Comment on above: Performed By: #### 4 5506, 47730, 85421, 07990, 83350, 62073 #### [facility] [address] [place] [address], [place] Calcium [Mass/Vol] 8.6 mg/dL Normal 8.6-10.3 [facility] Comment on above: Performed By: #### 4 5506, 98156, 26621, 96893, 60028, 80426 #### [facility] [address] [place] [address], [place] Chloride [Moles/Vol] 97 mmol/L Low 98-107 [facility] Comment on above: Performed By: #### 4 5506, 57102, 38948, 66899, 72342, 14101 #### [facility] [address] [place] [address], [place] CO2 [Moles/Vol] 26 mmol/L Normal 21-31 [facility] Comment on above: Performed By: #### 4 5506, 54730, 00940, 31727, 10534, 13247 #### [facility] [address] [place] [address], [place] Creatinine [Mass/Vol] 1.04 mg/dL Normal 0.70-1.30 [facility] Comment on above: Performed By: #### 4 5506, 77585, 64776, 41744, 93172, 43327 #### [facility] [address] [place] [address], [place] GFR/1.73 sq M.predicted among blacks MDRD (S/P/Bld) [Vol rate/Area] mL/min/{1.73_m2} Normal >60 [facility] Comment on above: Performed By: #### 4 5506, 62628, 25105, 42972, 15105, 60538 #### [facility] [address] [place] [address], [place] GFR/1.73 sq M.predicted among non-blacks MDRD (S/P/Bld) [Vol rate/Area] mL/min/{1.73_m2} Normal >60 [facility] Comment on above: Performed By: #### 4 5506, 90314, 42209, 90380, 17294, 10931 #### [facility] [address] [place] [address], [place] Glucose [Mass/Vol] 158 mg/dL High 70-100 [facility] Comment on above: Performed By: #### 4 5506, 03573, 01170, 17980, 38542, 81367 #### [facility] [address] [place] [address], [place] Potassium [Moles/Vol] 4.4 mmol/L Normal 3.5-5.1 [facility] Comment on above: Performed By: #### 4 5506, 66434, 45117, 05212, 18213, 96260 #### [facility] [address] [place] [address], [place] Protein [Mass/Vol] 6.6 g/dL Normal 6.0-8.3 [facility] Comment on above: Performed By: #### 4 5506, 73745, 25855, 32190, 42178, 38772 #### [facility] [address] [place] [address], [place] Sodium [Moles/Vol] 131 mmol/L Low 136-145 [facility] Comment on above: Performed By: #### 4 5506, 54371, 44963, 06131, 74634, 96903 #### [facility] [address] [place] [address], [place] Urea nitrogen [Mass/Vol] 15 mg/dL Normal 7-25 [facility] Comment on above: Performed By: #### 4 5506, 88023, 06619, 48112, 82006, 81786 #### [facility] [address] [place] [address], [place] DIRECT BILIon 10-31-2021 Bilirubin.direct [Mass/Vol] 0.1 mg/dL Normal 0.0-0.2 [facility] Comment on above: Performed By: #### 4 5506, 56041, 45667, 69140, 33641, 21706 #### [facility] [address] [place] [address], [place] LIPID PROFILEon 10-31-2021 Cholesterol [Mass/Vol] 70 mg/dL Low 120-200 [facility] Comment on above: Result Comment: CHOL ESTEROL REFERENCE RANGE: 20 YEARS AND OLDER CARDIOVASCULAR RISK Less than 200 mg/dl Low Risk 200 to 239 mg/dl Borderline Risk 240 mg/dl and greater High Risk Performed By: #### 4 5506, 01385, 61812, 91851, 58978, 06857 #### [facility] [address] [place] [address], [place] Cholesterol in HDL [Mass/Vol] 35 mg/dL Normal 23-92 [facility] Comment on above: Result Comment: Slig ht variation in normal range could be due to gender and/or age. HDL CHOLESTEROL REFERENCE RANGE: 20 years and older Cardiovascular Risk > or =60 mg/dL Desirable 40 TO 59 mg/dL Low Risk <40 mg/dL High Risk Performed By: #### 4 5506, 50964, 74414, 26153, 87810, 65385 #### [facility] [address] [place] [address], [place] Cholesterol in LDL [Mass/Vol] 20 mg/dL Normal 0-130 [facility] Comment on above: Result Comment: LDL IS A CALCULATION LDL IS ONLY VALID IF THE TRIG IS LESS THAN 400. Performed By: #### 4 5506, 67651, 35482, 02648, 12685, 89541 #### [facility] [address] [place] [address], [place] Cholesterol.total/Cho lesterol in HDL [Mass ratio] 2.0 {ratio} Normal .0-4.5 [facility] Comment on above: Performed By: #### 4 5506, 01448, 92933, 73891, 33545, 97337 #### [facility] [address] [place] [address], [place] NON-HDL CHOLESTEROL 35 mg/dL Normal [facility] Comment on above: Performed By: #### 4 5506, 69730, 26647, 16974, 03479, 73975 #### [facility] [address] [place] [address], [place] Triglyceride [Mass/Vol] 73 mg/dL Normal 40-149 [facility] Comment on above: Result Comment: TRIG LYCERIDE REFERENCE RANGE: 20 YEARS AND OLDER CARDIOVASCULAR RISK LESS THAN 150 mg/dl LOW RISK 150 TO 199 mg/dl BORDERLINE RISK 200 mg/dl AND GREATER HIGH RISK Performed By: #### 4 5506, 43926, 60847, 93230, 34515, 29280 #### [facility] [address] [place] [address], [place] VLDL CHOL 15 mg/dL Normal 0-40 [facility] Comment on above: Performed By: #### 4 5506, 86888, 40624, 61554, 36921, 88342 #### [facility] [address] [place] [address], [place] MAGNESIUM BLOODon 10-31-2021 Magnesium [Mass/Vol] 1.1 mg/dL Critically low 1.9-2.7 [facility] Comment on above: Performed By: #### 4 5506, 79711, 55553, 71779, 73448, 08166 #### [facility] [address] [place] [address], [place] PHOSPHORUS BLOODon Phosphate [Mass/Vol] 3.0 mg/dL Normal 2.5-5.0 [facility] Comment on above: Performed By: #### 4 5506, 78918, 68355, 59624, 32206, 77116 #### [facility] [address] PROSPERAon 10-31-2021 PROSPERA KIT Results to be mailed directly to physician's office by reference lab. Normal [facility] Comment on above: Result Comment: Test performed by [id number] [place] [address] Specimen collected for transplant patient and sent to [facility] per Dr instructions. No charge. No result expected. For billing and tracking purposes only. Performed By: #### 4 5506, 32279, 88429, 60388, 97588, 01974 #### [facility] [address] RESULT Results to be mailed directly to physician's office by reference lab. Normal [facility] Comment on above: Performed By: #### 4 5506, 19433, 07998, 55747, 10627, 97400 #### [facility] [address] TACROLIMUSon 10-31-2021 Tacrolimus (Bld) [Mass/Vol] 7.6 ng/mL Normal 5.0-20.0 [facility] Comment on above: Result Comment: The [employer] Tacrolimus assay is a delayed one-step immunoassay for the quantitative determination of tacrolimus in human whole blood using the chemiluminescent microparticle immunoassay (CMIA) technology with flexible assay protocols, referred to as Chemiflex. Performed By: #### 4 5506, 92476, 80294, 92645, 27506, 92342 #### [facility] [address] URIC ACID BLOODon 10-31-2021 Urate [Mass/Vol] 7.8 mg/dL High 4.4-7.6 [facility] Comment on above: Performed By: #### 4 5506, 13087, 05889, 71558, 68623, 77421 #### [facility] [address] NM PARATHYROID WITH SPECT AN D CTon 07-24-2021 NM PARATHYROID WITH SPECT AND CT [facility] Department of Radiology [address] [place] [id number] Patient Name: WM SUAREZ : 1950 Sex: M Age: Race: White Pt. Location: Patient Status: D Ordered Date: 06/26/2021 8:40:00 AM Completed Date: 07/24/2021 01:21 PM Requesting Provider: NAGA BOSCH Attending Provider: NAGA BOSCH Report Copy To: JERICHO MCCARTHY Signs & Symptoms: E21.3 Hyperparathyroidism, unspecified I10 History: Elbert NPC Req. per [facility] A/B for CPT 18537 *SLA Comments: , , , Ordering Provider [...] SPECT. Electronically signed: Nan Earl. Transcribed by: [email or web address], User Resident: Electronically Signed by: NAN EARL @ 07/27/2021 12:13 PM Normal [facility] Comment on above: Order Comment: , , = ========= , Ordering Provider - NAGA BOSCH MD , CBC W/DIFFon 06-22-2021 ABS IMM GRANS 0.1 10*3/uL Normal 0.0-0.2 [facility] Comment on above: Performed By: #### 4 5506, 99364, 89534, 34208, 81917, 51283 #### [facility] [address] [place] [address], [place] ABS NEUTROPHILS 4.7 10*3/uL Normal 1.6-7.6 [facility] Comment on above: Performed By: #### 4 5506, 83860, 62330, 58357, 59567, 68266 #### [facility] [address] [place] [address], [place] Basophils (Bld) [#/Vol] 0.0 10*3/uL Normal 0.0-0.2 [facility] Comment on above: Performed By: #### 4 5506, 09779, 42835, 56366, 62129, 83340 #### [facility] [address] [place] [address], [place] Basophils/100 WBC (Bld) 0.6 % Normal 0.0-1.0 [facility] Comment on above: Performed By: #### 4 5506, 37034, 29083, 89179, 61532, 97001 #### [facility] [address] [place] [address], [place] Eosinophils (Bld) [#/Vol] 0.2 10*3/uL Normal 0.0-0.5 [facility] Comment on above: Performed By: #### 4 5506, 63165, 14129, 04999, 42110, 28681 #### [facility] [address] [place] [address], [place] Eosinophils/100 WBC (Bld) 2.5 % Normal 0.0-6.0 [facility] Comment on above: Performed By: #### 4 5506, 74201, 43838, 71171, 20475, 29978 #### [facility] [address] Erythrocyte distribution width (RBC) [Ratio] 13.6 % Normal 11.5-15.0 [facility] Comment on above: Performed By: #### 4 5506, 37448, 98414, 04472, 43103, 65408 #### [facility] [address] Hematocrit (Bld) [Volume fraction] 36.3 % Low 39.0-50.0 [facility] Comment on above: Performed By: #### 4 5506, 09235, 56115, 21202, 85369, 55573 #### [facility] [address] Hemoglobin (Bld) [Mass/Vol] 11.7 g/dL Low 13.0-17.0 [facility] Comment on above: Performed By: #### 4 5506, 99120, 19131, 65549, 40904, 60871 #### [facility] [address] [facility] [address] IMMATURE GRANS 0.8 % Normal 0.0-1.0 [facility] Comment on above: Performed By: #### 4 5506, 76798, 76467, 94334, 52151, 61989 #### [facility] [address] [place] [address], [place] Lymphocytes (Bld) [#/Vol] 0.9 10*3/uL Low 1.2-4.0 [facility] Comment on above: Performed By: #### 4 5506, 63275, 63887, 53702, 15337, 32308 #### [facility] [address] Lymphocytes/100 WBC (Bld) 13.6 % Low 20.0-45.0 [facility] Comment on above: Performed By: #### 4 5506, 63855, 26917, 68641, 58410, 76819 #### [facility] [address] MCH (RBC) [Entitic mass] 28.6 pg Normal 27.0-33.0 [facility] Comment on above: Performed By: #### 4 5506, 10389, 73365, 67438, 37518, 14909 #### [facility] [address] MCHC (RBC) [Mass/Vol] 32.2 g/dL Normal 32.0-35.0 [facility] Comment on above: Performed By: #### 4 5506, 95738, 89107, 17487, 11282, 52661 #### [facility] [address] MCV (RBC) [Entitic vol] 88.8 fL Normal 82.0-98.0 [facility] Comment on above: Performed By: #### 4 5506, 82211, 48148, 41632, 67081, 53101 #### [facility] [address] Monocytes (Bld) [#/Vol] 0.6 10*3/uL Normal 0.1-1.0 [facility] Comment on above: Performed By: #### 4 5506, 68248, 17024, 96097, 39622, 19640 #### [facility] [address] MONOS 9.6 % Normal 5.0-12.0 [facility] Comment on above: Performed By: #### 4 5506, 22775, 53740, 55770, 00663, 71177 #### [facility] [address] [place] [address], [place] Neutrophils/100 WBC (Bld) 72.9 % High 40.0-72.0 [facility] Comment on above: Performed By: #### 4 5506, 24118, 62498, 36400, 97087, 88732 #### [facility] [address] [facility] [place] [address], [place] Nucleated RBC/100 WBC (Bld) [Ratio] 0 % Normal 0-0 [facility] Comment on above: Performed By: #### 4 5506, 32116, 20535, 13006, 50444, 75275 #### [facility] [address] [facility] [place] [address], [place] PLAT CNT 263 10*3/uL Normal 150-400 [facility] Comment on above: Performed By: #### 4 5506, 79417, 97609, 02881, 94927, 83708 #### [facility] [address] [facility] [place] [address], [place] RBC (Bld) [#/Vol] 4.09 10*6/uL Low 4.20-5.70 [facility] Comment on above: Performed By: #### 4 5506, 66600, 38924, 00309, 72615, 06658 #### [facility] [address] [facility] [place] [address], [place] WBC (Bld) [#/Vol] 6.45 10*3/uL Normal 4.00-10.60 [facility] Comment on above: Performed By: #### 4 5506, 25738, 78604, 81265, 97642, 08673 #### [facility] [address] [facility] [place] [address], [place] COMP METABOLIC PANELon 06-22 Albumin [Mass/Vol] 4.3 g/dL Normal 3.5-5.7 [facility] Comment on above: Performed By: #### 4 5506, 56816, 27061, 82341, 05757, 69113 #### [facility] [address] [place] [address], [place] ALKALINE PHOSPH 143 IU/L High 34-104 [facility] Comment on above: Performed By: #### 4 5506, 53058, 95744, 49888, 22764, 51402 #### [facility] [address] [place] [address], [place] ALT [Catalytic activity/Vol] 18 U/L Normal 7-52 [facility] Comment on above: Performed By: #### 4 5506, 39265, 81141, 14921, 41757, 17563 #### [facility] [facility] [address] [place] [address], [place] AST [Catalytic activity/Vol] 15 U/L Normal 13-39 [facility] Comment on above: Performed By: #### 4 5506, 98315, 50711, 81477, 42208, 30546 #### [facility] [address] [place] [address], [place] Bilirubin [Mass/Vol] 0.3 mg/dL Normal 0.3-1.0 [facility] Comment on above: Performed By: #### 4 5506, 88168, 93692, 26819, 51844, 00129 #### [facility] [address] [place] [address], [place] Calcium [Mass/Vol] 10.6 mg/dL High 8.6-10.3 [facility] Comment on above: Performed By: #### 4 5506, 68665, 78517, 33442, 10041, 19483 #### [facility] [address] [place] [address], [place] Chloride [Moles/Vol] 102 mmol/L Normal 98-107 [facility] Comment on above: Performed By: #### 4 5506, 11201, 59224, 77371, 52564, 79053 #### [facility] [address] [place] [address], [place] CO2 [Moles/Vol] 24 mmol/L Normal 21-31 [facility] Comment on above: Performed By: #### 4 5506, 59144, 81997, 43541, 95327, 60843 #### [facility] [address] [place] [address], [place] Creatinine [Mass/Vol] 1.04 mg/dL Normal 0.70-1.30 [facility] Comment on above: Performed By: #### 4 5506, 34441, 74404, 78541, 18928, 29946 #### [facility] [address] [place] [address], [place] GFR/1.73 sq M.predicted among blacks MDRD (S/P/Bld) [Vol rate/Area] mL/min/{1.73_m2} Normal >60 [facility] Comment on above: Performed By: #### 4 5506, 90133, 64692, 17190, 83659, 98959 #### [facility] [address] [place] [address], [place] GFR/1.73 sq M.predicted among non-blacks MDRD (S/P/Bld) [Vol rate/Area] mL/min/{1.73_m2} Normal >60 [facility] Comment on above: Performed By: #### 4 5506, 25732, 16593, 55740, 23423, 88514 #### [facility] [address] [place] [address], [place] Glucose [Mass/Vol] 167 mg/dL High 70-100 [facility] Comment on above: Performed By: #### 4 5506, 13953, 38112, 91827, 19752, 72412 #### [facility] [address] [place] [address], [place] Potassium [Moles/Vol] 5.3 mmol/L High 3.5-5.1 [facility] Comment on above: Performed By: #### 4 5506, 08806, 27729, 56192, 73972, 92254 #### [facility] [address] [place] [address], [place] Protein [Mass/Vol] 6.5 g/dL Normal 6.0-8.3 [facility] Comment on above: Performed By: #### 4 5506, 14979, 33372, 47604, 92512, 14386 #### [facility] [address] [place] [address], [place] Sodium [Moles/Vol] 134 mmol/L Low 136-145 [facility] Comment on above: Performed By: #### 4 5506, 41137, 78640, 54123, 65812, 95361 #### [facility] [address] [place] [address], [place] Urea nitrogen [Mass/Vol] 11 mg/dL Normal 7-25 [facility] Comment on above: Performed By: #### 4 5506, 21751, 20581, 64062, 74983, 64812 #### [facility] [address] [place] [address], [place] DIRECT BILIon 06-22-2021 Bilirubin.direct [Mass/Vol] 0.1 mg/dL Normal 0.0-0.2 [facility] Comment on above: Performed By: #### 4 5506, 82723, 07960, 85974, 82559, 72643 #### [facility] [address] [place] [address], [place] LIPID PROFILEon 06-22-2021 Cholesterol [Mass/Vol] 77 mg/dL Low 120-200 [facility] Comment on above: Result Comment: CHOL ESTEROL REFERENCE RANGE: 20 YEARS AND OLDER CARDIOVASCULAR RISK Less than 200 mg/dl Low Risk 200 to 239 mg/dl Borderline Risk 240 mg/dl and greater High Risk Performed By: #### 4 5506, 09658, 95904, 59140, 92135, 07264 #### [facility] [address] [place] [address], [place] Cholesterol in HDL [Mass/Vol] 40 mg/dL Normal 23-92 [facility] Comment on above: Result Comment: Slig ht variation in normal range could be due to gender and/or age. HDL CHOLESTEROL REFERENCE RANGE: 20 years and older Cardiovascular Risk > or =60 mg/dL Desirable 40 TO 59 mg/dL Low Risk <40 mg/dL High Risk Performed By: #### 4 5506, 42270, 95000, 90223, 76376, 51931 #### [facility] [address] [place] [address], [place] Cholesterol in LDL [Mass/Vol] 24 mg/dL Normal 0-130 [facility] Comment on above: Result Comment: LDL IS A CALCULATION LDL IS ONLY VALID IF THE TRIG IS LESS THAN 400. Performed By: #### 4 5506, 62698, 51830, 11163, 38185, 85573 #### [facility] [address] [place] [address], [place] Cholesterol.total/Cho lesterol in HDL [Mass ratio] 1.9 {ratio} Normal .0-4.5 [facility] Comment on above: Performed By: #### 4 5506, 24615, 30471, 53032, 61559, 15918 #### [facility] [address] [place] [address], [place] NON-HDL CHOLESTEROL 37 mg/dL Normal [facility] Comment on above: Performed By: #### 4 5506, 09751, 72252, 75735, 68893, 68123 #### [facility] [address] [place] [address], [place] Triglyceride [Mass/Vol] 63 mg/dL Normal 40-149 [facility] Comment on above: Result Comment: TRIG LYCERIDE REFERENCE RANGE: 20 YEARS AND OLDER CARDIOVASCULAR RISK LESS THAN 150 mg/dl LOW RISK 150 TO 199 mg/dl BORDERLINE RISK 200 mg/dl AND GREATER HIGH RISK Performed By: #### 4 5506, 28543, 85636, 16225, 83954, 52057 #### [facility] [address] [place] [address], [place] VLDL CHOL 13 mg/dL Normal 0-40 [facility] Comment on above: Performed By: #### 4 5506, 11006, 91419, 17055, 48970, 49115 #### [facility] [address] [place] [address], [place] MAGNESIUM BLOODon 06-22-2021 Magnesium [Mass/Vol] 1.4 mg/dL Low 1.9-2.7 [facility] Comment on above: Performed By: #### 4 5506, 57268, 76053, 73718, 85580, 06333 #### [facility] [address] [facility] [place] [address], [place] PHOSPHORUS BLOODon Phosphate [Mass/Vol] 2.5 mg/dL Normal 2.5-5.0 [facility] Comment on above: Performed By: #### 4 5506, 21092, 67716, 82264, 68367, 84920 #### [facility] [address] [place] [address], [place] PTH INTACTon 06-22-2021 PTH INTACT 155 pg/mL High 12-88 [facility] Comment on above: Performed By: #### 4 5506, 31558, 12329, 59928, 96813, 49128 #### [facility] [address] [place] [address], [place] TACROLIMUSon 06-22-2021 Tacrolimus (Bld) [Mass/Vol] 21.0 ng/mL High 5.0-20.0 [facility] Comment on above: Result Comment: The [employer] Tacrolimus assay is a delayed one-step immunoassay for the quantitative determination of tacrolimus in human whole blood using the chemiluminescent microparticle immunoassay (CMIA) technology with flexible assay protocols, referred to as Chemiflex. Performed By: #### 4 5506, 00128, 72447, 87263, 24179, 48567 #### [facility] [address] URIC ACID BLOODon 06-22-2021 Urate [Mass/Vol] 7.9 mg/dL High 4.4-7.6 [facility] Comment on above: Performed By: #### 4 5506, 91198, 80154, 67463, 60383, 08892 #### [facility] [address] CBC W/DIFFon 04-19-2021 ABS IMM GRANS 0.1 10*3/uL Normal 0.0-0.2 [facility] Comment on above: Performed By: #### 4 5506, 78657, 04487, 63970, 64044, 62384 #### [facility] [address] [facility]. [address] ABS NEUTROPHILS 5.2 10*3/uL Normal 1.6-7.6 [facility] Comment on above: Performed By: #### 4 5506, 52841, 56121, 46102, 26557, 98957 #### [facility] [address] Basophils (Bld) [#/Vol] 0.0 10*3/uL Normal 0.0-0.2 [facility] Comment on above: Performed By: #### 4 5506, 17863, 51111, 43000, 39028, 18238 #### [facility] [address] Basophils/100 WBC (Bld) 0.4 % Normal 0.0-1.0 [facility] Comment on above: Performed By: #### 4 5506, 65572, 35557, 57891, 72663, 90908 #### [facility] [address] Eosinophils (Bld) [#/Vol] 0.2 10*3/uL Normal 0.0-0.5 [facility] Comment on above: Performed By: #### 4 5506, 07708, 89234, 05062, 28003, 36042 #### [facility] [address] [place] [address], [place] Eosinophils/100 WBC (Bld) 2.9 % Normal 0.0-6.0 [facility] Comment on above: Performed By: #### 4 5506, 21792, 68874, 78249, 96510, 81641 #### [facility] [address] Erythrocyte distribution width (RBC) [Ratio] 13.3 % Normal 11.5-15.0 [facility] Comment on above: Performed By: #### 4 5506, 52373, 81108, 71931, 79424, 33881 #### [facility] [address] Hematocrit (Bld) [Volume fraction] 37.1 % Low 39.0-50.0 [facility] Comment on above: Performed By: #### 4 5506, 88932, 15139, 18780, 91635, 12263 #### [facility] [address] Hemoglobin (Bld) [Mass/Vol] 11.7 g/dL Low 13.0-17.0 [facility] Comment on above: Performed By: #### 4 5506, 02774, 57181, 19654, 75759, 83273 #### [facility] [address] [place] [address], [place] IMMATURE GRANS 0.9 % Normal 0.0-1.0 [facility] Comment on above: Performed By: #### 4 5506, 36478, 21127, 23621, 99933, 79769 #### [facility] [address] [facility] [place] [address], [place] Lymphocytes (Bld) [#/Vol] 0.9 10*3/uL Low 1.2-4.0 [facility] Comment on above: Performed By: #### 4 5506, 16270, 75718, 96856, 24916, 71846 #### [facility] [address] [facility] [place] [address], [place] Lymphocytes/100 WBC (Bld) 12.5 % Low 20.0-45.0 [facility] Comment on above: Performed By: #### 4 5506, 37405, 73626, 80367, 23102, 55050 #### [facility] [address] [place] [address], [place] MCH (RBC) [Entitic mass] 29.0 pg Normal 27.0-33.0 [facility] Comment on above: Performed By: #### 4 5506, 08640, 85126, 60698, 62433, 70716 #### [facility] [address] [facility] [place] [address], [place] MCHC (RBC) [Mass/Vol] 31.5 g/dL Low 32.0-35.0 [facility] Comment on above: Performed By: #### 4 5506, 25409, 03735, 97614, 54890, 32612 #### [facility] [address] [facility] [place] [address], [place] MCV (RBC) [Entitic vol] 92.1 fL Normal 82.0-98.0 [facility] Comment on above: Performed By: #### 4 5506, 83316, 65753, 26754, 44084, 65134 #### [facility] [address] [place] [address], [place] Monocytes (Bld) [#/Vol] 0.6 10*3/uL Normal 0.1-1.0 [facility] Comment on above: Performed By: #### 4 5506, 48430, 26644, 07470, 20222, 42212 #### [facility] [address] [place] [address], [place] MONOS 8.6 % Normal 5.0-12.0 [facility] Comment on above: Performed By: #### 4 5506, 31737, 92033, 99371, 81147, 33163 #### [facility] [address] [place] [address], [place] Neutrophils/100 WBC (Bld) 74.7 % High 40.0-72.0 [facility] Comment on above: Performed By: #### 4 5506, 94556, 57301, 21156, 19148, 11840 #### [facility] [address] [place] [address], [place] Nucleated RBC/100 WBC (Bld) [Ratio] 0 % Normal 0-0 [facility] Comment on above: Performed By: #### 4 5506, 63704, 18422, 66872, 74736, 56531 #### [facility] [address] [facility] [place] [address], [place] PLAT CNT 290 10*3/uL Normal 150-400 [facility] Comment on above: Performed By: #### 4 5506, 03329, 46255, 49017, 76685, 44518 #### [facility] [address] [facility] [place] [address], [place] RBC (Bld) [#/Vol] 4.03 10*6/uL Low 4.20-5.70 [facility] Comment on above: Performed By: #### 4 5506, 47248, 70391, 74798, 25051, 72841 #### [facility] [address] [place] [address], [place] WBC (Bld) [#/Vol] 6.96 10*3/uL Normal 4.00-10.60 [facility] Comment on above: Performed By: #### 4 5506, 22199, 22150, 58746, 93371, 42194 #### [facility] [address] [place] [address], [place] COMP METABOLIC PANELon 04-19 Albumin [Mass/Vol] 4.3 g/dL Normal 3.5-5.7 [facility] Comment on above: Performed By: #### 4 5506, 21023, 88296, 36817, 43017, 31292 #### [facility] [address] [place] [address], [place] ALKALINE PHOSPH 137 IU/L High 34-104 [facility] Comment on above: Performed By: #### 4 5506, 79604, 58417, 46451, 54382, 28675 #### [facility] [address] [place] [address], [place] ALT [Catalytic activity/Vol] 17 U/L Normal 7-52 [facility] Comment on above: Performed By: #### 4 5506, 61042, 96351, 29931, 87048, 92022 #### [facility] [address] [place] [address], [place] AST [Catalytic activity/Vol] 16 U/L Normal 13-39 [facility] Comment on above: Performed By: #### 4 5506, 34597, 71463, 92389, 10561, 27305 #### [facility] [address] [place] [address], [place] Bilirubin [Mass/Vol] 0.4 mg/dL Normal 0.3-1.0 [facility] Comment on above: Performed By: #### 4 5506, 12221, 45318, 44757, 86391, 96024 #### [facility] [address] [place] [address], [place] Calcium [Mass/Vol] 10.5 mg/dL High 8.6-10.3 [facility] Comment on above: Performed By: #### 4 5506, 74645, 13376, 16423, 31647, 99483 #### [facility] [address] [place] [address], [place] Chloride [Moles/Vol] 99 mmol/L Normal 98-107 [facility] Comment on above: Performed By: #### 4 5506, 58116, 91705, 56890, 33561, 25579 #### [facility] [address] [place] [address], [place] CO2 [Moles/Vol] 27 mmol/L Normal 21-31 [facility] Comment on above: Performed By: #### 4 5506, 08900, 46532, 19545, 97544, 31693 #### [facility] [address] [place] [address], [place] Creatinine [Mass/Vol] 1.04 mg/dL Normal 0.70-1.30 [facility] Comment on above: Performed By: #### 4 5506, 51148, 61567, 77084, 21963, 41476 #### [facility] [address] [place] [address], [place] GFR/1.73 sq M.predicted among blacks MDRD (S/P/Bld) [Vol rate/Area] mL/min/{1.73_m2} Normal >60 [facility] Comment on above: Performed By: #### 4 5506, 46171, 72843, 17703, 62967, 22394 #### [facility] [address] [place] [address], [place] GFR/1.73 sq M.predicted among non-blacks MDRD (S/P/Bld) [Vol rate/Area] mL/min/{1.73_m2} Normal >60 [facility] Comment on above: Performed By: #### 4 5506, 11921, 57023, 36936, 84750, 12953 #### [facility] [address] [place] [address], [place] Glucose [Mass/Vol] 139 mg/dL High 70-100 [facility] Comment on above: Performed By: #### 4 5506, 59406, 91925, 20753, 01131, 48846 #### [facility] [address] [place] [address], [place] Potassium [Moles/Vol] 5.1 mmol/L Normal 3.5-5.1 [facility] Comment on above: Performed By: #### 4 5506, 16067, 67448, 81879, 78410, 77597 #### [facility] [address] [place] [address], [place] Protein [Mass/Vol] 6.5 g/dL Normal 6.0-8.3 [facility] Comment on above: Performed By: #### 4 5506, 12673, 49161, 82016, 01086, 33022 #### [facility] [address] [place] [address], [place] Sodium [Moles/Vol] 133 mmol/L Low 136-145 [facility] Comment on above: Performed By: #### 4 5506, 11198, 91942, 75031, 91060, 20215 #### [facility] [address] [place] [address], [place] Urea nitrogen [Mass/Vol] 11 mg/dL Normal 7-25 [facility] Comment on above: Performed By: #### 4 5506, 80639, 43792, 57064, 86533, 95480 #### [facility] [address] [place] [address], [place] DIRECT BILIon 04-19-2021 Bilirubin.direct [Mass/Vol] 0.1 mg/dL Normal 0.0-0.2 [facility] Comment on above: Performed By: #### 4 5506, 37154, 04995, 04011, 73830, 18101 #### [facility] [address] [place] [address], [place] LIPID PROFILEon 04-19-2021 Cholesterol [Mass/Vol] 82 mg/dL Low 120-200 [facility] Comment on above: Result Comment: CHOL ESTEROL REFERENCE RANGE: 20 YEARS AND OLDER CARDIOVASCULAR RISK Less than 200 mg/dl Low Risk 200 to 239 mg/dl Borderline Risk 240 mg/dl and greater High Risk Performed By: #### 4 5506, 23987, 15878, 78718, 36436, 34264 #### [facility] [address] [place] [address], [place] Cholesterol in HDL [Mass/Vol] 38 mg/dL Normal 23-92 [facility] Comment on above: Result Comment: Slig ht variation in normal range could be due to gender and/or age. HDL CHOLESTEROL REFERENCE RANGE: 20 years and older Cardiovascular Risk > or =60 mg/dL Desirable 40 TO 59 mg/dL Low Risk <40 mg/dL High Risk Performed By: #### 4 5506, 93391, 77271, 57749, 04358, 77674 #### [facility] [address] [place] [address], [place] Cholesterol in LDL [Mass/Vol] 25 mg/dL Normal 0-130 [facility] Comment on above: Result Comment: LDL IS A CALCULATION LDL IS ONLY VALID IF THE TRIG IS LESS THAN 400. Performed By: #### 4 5506, 39086, 54061, 66721, 72011, 25037 #### [facility] [address] [place] [address], [place] Cholesterol.total/Cho lesterol in HDL [Mass ratio] 2.2 {ratio} Normal .0-4.5 [facility] Comment on above: Performed By: #### 4 5506, 93160, 55134, 73811, 27116, 88635 #### [facility] [address] [place] [address], [place] NON-HDL CHOLESTEROL 44 mg/dL Normal [facility] Comment on above: Performed By: #### 4 5506, 17181, 55835, 27724, 95537, 91627 #### [facility] [address] [place] [address], [place] Triglyceride [Mass/Vol] 93 mg/dL Normal 40-149 [facility] Comment on above: Result Comment: TRIG LYCERIDE REFERENCE RANGE: 20 YEARS AND OLDER CARDIOVASCULAR RISK LESS THAN 150 mg/dl LOW RISK 150 TO 199 mg/dl BORDERLINE RISK 200 mg/dl AND GREATER HIGH RISK Performed By: #### 4 5506, 39086, 84670, 88867, 69786, 00947 #### [facility] [address] [place] [address], [place] VLDL CHOL 19 mg/dL Normal 0-40 [facility] Comment on above: Performed By: #### 4 5506, 62855, 30453, 09016, 15652, 85846 #### [facility] [address] [place] [address], [place] MAGNESIUM BLOODon 04-19-2021 Magnesium [Mass/Vol] 1.8 mg/dL Low 1.9-2.7 [facility] Comment on above: Performed By: #### 4 5506, 31705, 51596, 79536, 49725, 51276 #### [facility] [address] [place] [address], [place] PHOSPHORUS BLOODon Phosphate [Mass/Vol] 3.0 mg/dL Normal 2.5-5.0 [facility] Comment on above: Performed By: #### 4 5506, 00815, 11018, 10664, 13299, 78720 #### [facility] [address] [place] [address], [place] PROSPERAon 04-19-2021 PROSPERA KIT Results to be mailed directly to physician's office by reference lab. Normal [facility] Comment on above: Result Comment: Test performed by [id number] [place] [id number] No result expected. For billing and tracking purposes only. Specimen collected for transplant patient and sent to requesting hospital per Dr instructions. No charge. Performed By: #### 4 5506, 73771, 78161, 48588, 02602, 30492 #### [facility] [address] [facility]. [address] RESULT Results to be mailed directly to physician's office by reference lab. Normal [facility] Comment on above: Performed By: #### 4 5506, 79430, 36618, 43016, 53543, 31132 #### [facility] [address] [facility]. [address] TACROLIMUSon 04-19-2021 Tacrolimus (Bld) [Mass/Vol] 7.7 ng/mL Normal 5.0-20.0 [facility] Comment on above: Result Comment: The [employer] Tacrolimus assay is a delayed one-step immunoassay for the quantitative determination of tacrolimus in human whole blood using the chemiluminescent microparticle immunoassay (CMIA) technology with flexible assay protocols, referred to as Chemiflex. Performed By: #### 4 5506, 69381, 04639, 63409, 10286, 83370 #### [facility] [address] [facility]. [address] URIC ACID BLOODon 04-19-2021 Urate [Mass/Vol] 7.9 mg/dL High 4.4-7.6 [facility] Comment on above: Performed By: #### 4 5506, 95936, 35427, 27510, 56305, 85420 #### [facility] [address] [facility] [place] [address], [place] CBC W/DIFFon 04-11-2021 ABS IMM GRANS 0.0 10*3/uL Normal 0.0-0.2 [facility] Comment on above: Performed By: #### 4 5506, 86789, 31096, 74967, 83640, 01829 #### [facility] [address] [facility]. [address] ABS NEUTROPHILS 4.5 10*3/uL Normal 1.6-7.6 [facility] Comment on above: Performed By: #### 4 5506, 03833, 94672, 85928, 86407, 52986 #### [facility] [address] [place] [address], [place] Basophils (Bld) [#/Vol] 0.0 10*3/uL Normal 0.0-0.2 [facility] Comment on above: Performed By: #### 4 5506, 40577, 64533, 25706, 73362, 36954 #### [facility] [address] [facility] [place] [id number], [place] Basophils/100 WBC (Bld) 0.5 % Normal 0.0-1.0 [facility] Comment on above: Performed By: #### 4 5506, 04473, 68829, 91685, 18979, 15336 #### [facility] [address] [facility] [place] [address], [place] Eosinophils (Bld) [#/Vol] 0.2 10*3/uL Normal 0.0-0.5 [facility] Comment on above: Performed By: #### 4 5506, 41499, 88854, 48743, 22902, 82367 #### [facility] [address] [place] [address], [place] Eosinophils/100 WBC (Bld) 3.1 % Normal 0.0-6.0 [facility] Comment on above: Performed By: #### 4 5506, 53177, 16837, 99185, 25076, 23208 #### [facility] [address] [facility] [place] [address], [place] Erythrocyte distribution width (RBC) [Ratio] 13.4 % Normal 11.5-15.0 [facility] Comment on above: Performed By: #### 4 5506, 20069, 04497, 24582, 11843, 00492 #### [facility]. [address] Hematocrit (Bld) [Volume fraction] 35.5 % Low 39.0-50.0 [facility] Comment on above: Performed By: #### 4 5506, 75216, 63578, 65987, 08645, 91325 #### [facility] [address] Hemoglobin (Bld) [Mass/Vol] 11.7 g/dL Low 13.0-17.0 [facility] Comment on above: Performed By: #### 4 5506, 26843, 07767, 14084, 17208, 16215 #### [facility] 3000 [facility]. [address] IMMATURE GRANS 0.6 % Normal 0.0-1.0 [facility] Comment on above: Performed By: #### 4 5506, 04360, 07681, 27676, 89754, 61785 #### [facility] [address] [facility]. [address] Lymphocytes (Bld) [#/Vol] 0.8 10*3/uL Low 1.2-4.0 [facility] Comment on above: Performed By: #### 4 5506, 82135, 83871, 54827, 12645, 86953 #### [facility] 3000 [facility]. [address] Lymphocytes/100 WBC (Bld) 12.9 % Low 20.0-45.0 [facility] Comment on above: Performed By: #### 4 5506, 13578, 86155, 18767, 07695, 04912 #### [facility] [address] [place] [address], [place] MCH (RBC) [Entitic mass] 29.2 pg Normal 27.0-33.0 [facility] Comment on above: Performed By: #### 4 5506, 58532, 99198, 04143, 10459, 48419 #### [facility] [address] [place] [address], [place] MCHC (RBC) [Mass/Vol] 33.0 g/dL Normal 32.0-35.0 [facility] Comment on above: Performed By: #### 4 5506, 71377, 93667, 86290, 93573, 32809 #### [facility] [address] [place] [address], [place] MCV (RBC) [Entitic vol] 88.5 fL Normal 82.0-98.0 [facility] Comment on above: Performed By: #### 4 5506, 96447, 45952, 55345, 66294, 73905 #### [facility] [address] Monocytes (Bld) [#/Vol] 0.6 10*3/uL Normal 0.1-1.0 [facility] Comment on above: Performed By: #### 4 5506, 02358, 57314, 89054, 30662, 44990 #### [facility] 3000 [facility]. [address] MONOS 10.3 % Normal 5.0-12.0 [facility] Comment on above: Performed By: #### 4 5506, 43711, 09011, 19370, 90198, 98260 #### [facility] [address] Neutrophils/100 WBC (Bld) 72.6 % High 40.0-72.0 [facility] Comment on above: Performed By: #### 4 5506, 48529, 79337, 77657, 41823, 63622 #### [facility] [address] Nucleated RBC/100 WBC (Bld) [Ratio] 0 % Normal 0-0 [facility] Comment on above: Performed By: #### 4 5506, 72657, 32032, 69725, 59121, 60228 #### [facility] [address] [place] [address], [place] PLAT CNT 272 10*3/uL Normal 150-400 [facility] Comment on above: Performed By: #### 4 5506, 84761, 98626, 45701, 90463, 65064 #### [facility] [address] [place] [address], [place] RBC (Bld) [#/Vol] 4.01 10*6/uL Low 4.20-5.70 [facility] Comment on above: Performed By: #### 4 5506, 66314, 42194, 28844, 19644, 34398 #### [facility] [address] [place] [address], [place] WBC (Bld) [#/Vol] 6.22 10*3/uL Normal 4.00-10.60 [facility] Comment on above: Performed By: #### 4 5506, 55182, 23423, 02649, 09820, 60622 #### [facility] [address] COMP METABOLIC PANELon 04-11 Albumin [Mass/Vol] 4.3 g/dL Normal 3.5-5.7 [facility] Comment on above: Performed By: #### 4 5506, 52099, 37886, 35505, 33223, 48359 #### [facility] [address] [place] [address], [place] ALKALINE PHOSPH 115 IU/L High 34-104 [facility] Comment on above: Performed By: #### 4 5506, 82412, 69131, 08285, 80436, 53237 #### [facility] [address] [place] [address], [place] ALT [Catalytic activity/Vol] 16 U/L Normal 7-52 [facility] Comment on above: Performed By: #### 4 5506, 14129, 12429, 63908, 69582, 56491 #### [facility] [address] [place] [address], [place] AST [Catalytic activity/Vol] 15 U/L Normal 13-39 [facility] Comment on above: Performed By: #### 4 5506, 57099, 77655, 14692, 84827, 97131 #### [facility] [address] [place] [address], [place] Bilirubin [Mass/Vol] 0.6 mg/dL Normal 0.3-1.0 [facility] Comment on above: Performed By: #### 4 5506, 98795, 98324, 08276, 91130, 85387 #### [facility] [address] [place] [address], [place] Calcium [Mass/Vol] 10.3 mg/dL Normal 8.6-10.3 [facility] Comment on above: Performed By: #### 4 5506, 36874, 55382, 15821, 00887, 64931 #### [facility] [address] [place] [address], [place] Chloride [Moles/Vol] 97 mmol/L Low 98-107 [facility] Comment on above: Performed By: #### 4 5506, 56435, 75394, 55487, 67272, 21445 #### [facility] [address] [place] [address], [place] CO2 [Moles/Vol] 26 mmol/L Normal 21-31 [facility] Comment on above: Performed By: #### 4 5506, 81374, 22768, 12189, 13938, 65363 #### [facility] [address] [place] [address], [place] Creatinine [Mass/Vol] 0.93 mg/dL Normal 0.70-1.30 [facility] Comment on above: Performed By: #### 4 5506, 02194, 42555, 35364, 57839, 19181 #### [facility] [address] [place] [address], [place] GFR/1.73 sq M.predicted among blacks MDRD (S/P/Bld) [Vol rate/Area] mL/min/{1.73_m2} Normal >60 [facility] Comment on above: Performed By: #### 4 5506, 18175, 46566, 97689, 39240, 64532 #### [facility] [address] [place] [address], [place] GFR/1.73 sq M.predicted among non-blacks MDRD (S/P/Bld) [Vol rate/Area] mL/min/{1.73_m2} Normal >60 [facility] Comment on above: Performed By: #### 4 5506, 85890, 48487, 05459, 15536, 99657 #### [facility] [address] [place] [address], [place] Glucose [Mass/Vol] 136 mg/dL High 70-100 [facility] Comment on above: Performed By: #### 4 5506, 05248, 92261, 34778, 68951, 98036 #### [facility] [address] [place] [address], [place] Potassium [Moles/Vol] 5.2 mmol/L High 3.5-5.1 [facility] Comment on above: Performed By: #### 4 5506, 31103, 87629, 14662, 23711, 04885 #### [facility] [address] [place] [address], [place] Protein [Mass/Vol] 6.7 g/dL Normal 6.0-8.3 [facility] Comment on above: Performed By: #### 4 5506, 64633, 04879, 80118, 09071, 50102 #### [facility] [address] [place] [address], [place] Sodium [Moles/Vol] 129 mmol/L Low 136-145 [facility] Comment on above: Performed By: #### 4 5506, 00693, 84653, 76852, 57031, 53200 #### [facility] [address] [place] [address], [place] Urea nitrogen [Mass/Vol] 10 mg/dL Normal 7-25 [facility] Comment on above: Performed By: #### 4 5506, 54584, 59123, 81441, 00731, 95905 #### [facility] [address] [place] [address], [place] DIRECT BILIon 04-11-2021 Bilirubin.direct [Mass/Vol] 0.2 mg/dL Normal 0.0-0.2 [facility] Comment on above: Performed By: #### 4 5506, 37193, 77656, 55526, 32595, 68575 #### [facility] [address] [place] [address], [place] LIPID PROFILEon 04-11-2021 Cholesterol [Mass/Vol] 84 mg/dL Low 120-200 [facility] Comment on above: Result Comment: CHOL ESTEROL REFERENCE RANGE: 20 YEARS AND OLDER CARDIOVASCULAR RISK Less than 200 mg/dl Low Risk 200 to 239 mg/dl Borderline Risk 240 mg/dl and greater High Risk Performed By: #### 4 5506, 49591, 65494, 84241, 84901, 72130 #### [facility] [address] [place] [address], [place] Cholesterol in HDL [Mass/Vol] 41 mg/dL Normal 23-92 [facility] Comment on above: Result Comment: Slig ht variation in normal range could be due to gender and/or age. HDL CHOLESTEROL REFERENCE RANGE: 20 years and older Cardiovascular Risk > or =60 mg/dL Desirable 40 TO 59 mg/dL Low Risk <40 mg/dL High Risk Performed By: #### 4 5506, 71942, 37450, 72622, 65158, 01608 #### [facility] [address] [place] [address], [place] Cholesterol in LDL [Mass/Vol] 34 mg/dL Normal 0-130 [facility] Comment on above: Result Comment: LDL IS A CALCULATION LDL IS ONLY VALID IF THE TRIG IS LESS THAN 400. Performed By: #### 4 5506, 00979, 51522, 47496, 76367, 25943 #### [facility] [address] [place] [address], [place] Cholesterol.total/Cho lesterol in HDL [Mass ratio] 2.0 {ratio} Normal .0-4.5 [facility] Comment on above: Performed By: #### 4 5506, 42164, 44803, 96827, 21873, 56167 #### [facility] [address] [place] [address], [place] NON-HDL CHOLESTEROL 43 mg/dL Normal [facility] Comment on above: Performed By: #### 4 5506, 18422, 25809, 59602, 32036, 70936 #### [facility] [address] [place] [address], [place] Triglyceride [Mass/Vol] 47 mg/dL Normal 40-149 [facility] Comment on above: Result Comment: TRIG LYCERIDE REFERENCE RANGE: 20 YEARS AND OLDER CARDIOVASCULAR RISK LESS THAN 150 mg/dl LOW RISK 150 TO 199 mg/dl BORDERLINE RISK 200 mg/dl AND GREATER HIGH RISK Performed By: #### 4 5506, 49020, 42901, 00603, 43118, 70552 #### [facility] [address] [place] [address], [place] VLDL CHOL 9 mg/dL Normal 0-40 [facility] Comment on above: Performed By: #### 4 5506, 00770, 41595, 60638, 93691, 56905 #### [facility] [address] [place] [address], [place] MAGNESIUM BLOODon 04-11-2021 Magnesium [Mass/Vol] 1.3 mg/dL Low 1.9-2.7 [facility] Comment on above: Performed By: #### 4 5506, 67089, 95408, 23415, 12975, 82330 #### [facility] [address] [place] [address], [place] PHOSPHORUS BLOODon Phosphate [Mass/Vol] 2.6 mg/dL Normal 2.5-5.0 [facility] Comment on above: Performed By: #### 4 5506, 18413, 89706, 05724, 85250, 79771 #### [facility] [address] TACROLIMUSon 04-11-2021 Tacrolimus (Bld) [Mass/Vol] 8.3 ng/mL Normal 5.0-20.0 [facility] Comment on above: Result Comment: The [employer] Tacrolimus assay is a delayed one-step immunoassay for the quantitative determination of tacrolimus in human whole blood using the chemiluminescent microparticle immunoassay (CMIA) technology with flexible assay protocols, referred to as Chemiflex. Performed By: #### 4 5506, 80884, 00836, 95412, 22071, 62515 #### [facility] [address] URIC ACID BLOODon 04-11-2021 Urate [Mass/Vol] 8.4 mg/dL High 4.4-7.6 [facility] Comment on above: Performed By: #### 4 5506, 28935, 86479, 43003, 91895, 34677 #### [facility] [address] [facility]. [address] BK VIRUS QUANTITATION FOR PL ASMAon 02-16-2021 BKV Plasma Quantitation by PCR Not detected Normal [facility] Comment on above: Result Comment: Meth od: BK virus was measured by quantitative polymerase chain reaction using a fluorescent hydrolysis probe targeting the polyomavirus BK PATIENT COORDINATOR-1 gene. The lower limit of quantitation of the assay is 500 copies of BK genome per milliliter of plasma or urine, and any detectable BK DNA below that level is reported as: Detected, <500 copies/ml. Serial BK virus measurement can be used to monitor disease activity. (Reference: Katina hernandez. J CLIN MICRO 2004; 42:2141-0209). This test was developed and its performance characteristics determined by the [facility]. It has not been approved by the [place] Food and Drug Administration. However, such approval is not required for clinical implementation, and test results have been shown to be clinically useful. This laboratory is CAP accredited and CLIA certified to perform high complexity testing. Performed By: #### 4 5506, 63935, 75976, 61652, 47068, 43221 #### [facility] [address] BKV Plasma Quantitation Log by PCR Not detected Normal [facility] Comment on above: Performed By: #### 4 5506, 90436, 39039, 23774, 80490, 00050 #### [facility] [address] CBC W/DIFFon 02-16-2021 ABS IMM GRANS 0.1 10*3/uL Normal 0.0-0.2 [facility] Comment on above: Performed By: #### 4 5506, 37089, 45925, 94058, 17827, 73349 #### [facility] [address] ABS NEUTROPHILS 5.8 10*3/uL Normal 1.6-7.6 [facility] Comment on above: Performed By: #### 4 5506, 87059, 25957, 01824, 87970, 99185 #### [facility] [address] Basophils (Bld) [#/Vol] 0.0 10*3/uL Normal 0.0-0.2 [facility] Comment on above: Performed By: #### 4 5506, 51172, 03674, 80950, 00724, 84500 #### [facility] [address] [place] [address], [place] Basophils/100 WBC (Bld) 0.4 % Normal 0.0-1.0 [facility] Comment on above: Performed By: #### 4 5506, 85131, 23801, 50180, 61283, 23749 #### [facility] [address] [place] [address], [place] Eosinophils (Bld) [#/Vol] 0.3 10*3/uL Normal 0.0-0.5 [facility] Comment on above: Performed By: #### 4 5506, 72266, 64234, 28287, 81251, 03033 #### [facility] [address] [place] [address], [place] Eosinophils/100 WBC (Bld) 3.5 % Normal 0.0-6.0 [facility] Comment on above: Performed By: #### 4 5506, 55236, 69967, 22175, 83403, 42330 #### [facility] [address] [facility] [place] [address], [place] Erythrocyte distribution width (RBC) [Ratio] 13.6 % Normal 11.5-15.0 [facility] Comment on above: Performed By: #### 4 5506, 30943, 74089, 88877, 93514, 40083 #### [facility] [address] [place] [address], [place] Hematocrit (Bld) [Volume fraction] 34.1 % Low 39.0-50.0 [facility] Comment on above: Performed By: #### 4 5506, 22427, 51844, 67769, 14416, 50499 #### [facility] [address] [place] [address], [place] Hemoglobin (Bld) [Mass/Vol] 11.6 g/dL Low 13.0-17.0 [facility] Comment on above: Performed By: #### 4 5506, 10362, 02746, 39629, 27361, 43610 #### [facility] [address] [facility] [place] [address], [place] IMMATURE GRANS 0.8 % Normal 0.0-1.0 [facility] Comment on above: Performed By: #### 4 5506, 31173, 24982, 91930, 32610, 96977 #### [facility] [address] Lymphocytes (Bld) [#/Vol] 0.7 10*3/uL Low 1.2-4.0 [facility] Comment on above: Performed By: #### 4 5506, 84036, 16389, 05333, 68296, 24342 #### [facility] [address] Lymphocytes/100 WBC (Bld) 9.2 % Low 20.0-45.0 [facility] Comment on above: Performed By: #### 4 5506, 25498, 91336, 36951, 46221, 92054 #### [facility] [address] MCH (RBC) [Entitic mass] 29.5 pg Normal 27.0-33.0 [facility] Comment on above: Performed By: #### 4 5506, 32197, 65656, 94827, 62460, 24012 #### [facility] [address] [place] [address], [place] MCHC (RBC) [Mass/Vol] 34.0 g/dL Normal 32.0-35.0 [facility] Comment on above: Performed By: #### 4 5506, 53808, 33707, 41236, 96737, 62765 #### [facility] [address] [place] [address], [place] MCV (RBC) [Entitic vol] 86.8 fL Normal 82.0-98.0 [facility] Comment on above: Performed By: #### 4 5506, 82853, 95510, 67207, 27052, 37857 #### [facility] 3000 [facility] [place] [place] [address], [place] Monocytes (Bld) [#/Vol] 0.8 10*3/uL Normal 0.1-1.0 [facility] Comment on above: Performed By: #### 4 5506, 64207, 78676, 00480, 26353, 29000 #### [facility] [address] [facility] [place] [place] [address], [place] MONOS 10.3 % Normal 5.0-12.0 [facility] Comment on above: Performed By: #### 4 5506, 46097, 91927, 71901, 86194, 93613 #### [facility] [address] [facility] [place] [address], [place] Neutrophils/100 WBC (Bld) 75.8 % High 40.0-72.0 [facility] Comment on above: Performed By: #### 4 5506, 89266, 17169, 45604, 13954, 69215 #### [facility] [address] [facility] [place] [place] [address], [place] Nucleated RBC/100 WBC (Bld) [Ratio] 0 % Normal 0-0 [facility] Comment on above: Performed By: #### 4 5506, 29249, 27910, 37113, 02838, 66380 #### [facility] [address] [facility] [place] [address], [place] PLAT CNT 256 10*3/uL Normal 150-400 [facility] Comment on above: Performed By: #### 4 5506, 97350, 56239, 23262, 46006, 82197 #### [facility] [address] [facility] [place] [address], [place] RBC (Bld) [#/Vol] 3.93 10*6/uL Low 4.20-5.70 [facility] Comment on above: Performed By: #### 4 5506, 17520, 26285, 50672, 16477, 64837 #### [facility] [address] [place] [address], [place] WBC (Bld) [#/Vol] 7.65 10*3/uL Normal 4.00-10.60 [facility] Comment on above: Performed By: #### 4 5506, 64707, 25052, 29233, 98284, 43749 #### [facility] [address] [place] [address], [place] COMP METABOLIC PANELon 02-16 Albumin [Mass/Vol] 4.6 g/dL Normal 3.5-5.7 [facility] Comment on above: Performed By: #### 0 0121, 42271, 57140, 91527, 71788, 82196, 46434, 73887 #### [facility] [address] [place] [address], [place] ALKALINE PHOSPH 136 IU/L High 34-104 [facility] Comment on above: Performed By: #### 0 0121, 90307, 41604, 00441, 80387, 94374, 76182, 52186 #### [facility] [address] [place] [address], [place] ALT [Catalytic activity/Vol] 22 U/L Normal 7-52 [facility] Comment on above: Performed By: #### 0 0121, 84696, 44339, 39509, 82182, 97705, 61421, 43577 #### [facility] [address] [place] [address], [place] AST [Catalytic activity/Vol] 18 U/L Normal 13-39 [facility] Comment on above: Performed By: #### 0 0121, 03607, 88962, 86205, 64680, 42143, 85127, 09937 #### [facility] [address] [place] [address], [place] Bilirubin [Mass/Vol] 0.5 mg/dL Normal 0.3-1.0 [facility] Comment on above: Performed By: #### 0 0121, 01278, 44646, 28520, 22310, 15648, 20469, 72428 #### [facility] [address] [place] [address], [place] Calcium [Mass/Vol] 10.5 mg/dL High 8.6-10.3 [facility] Comment on above: Performed By: #### 0 0121, 29482, 20747, 62537, 91528, 84457, 35620, 75858 #### [facility] [address] [place] [address], [place] Chloride [Moles/Vol] 94 mmol/L Low 98-107 [facility] Comment on above: Performed By: #### 0 0121, 57305, 98078, 58212, 80433, 19952, 77143, 90602 #### [facility] [address] [place] [address], [place] CO2 [Moles/Vol] 28 mmol/L Normal 21-31 [facility] Comment on above: Performed By: #### 0 0121, 40848, 17631, 03959, 33097, 72838, 33903, 43775 #### [facility] [address] [place] [address], [place] Creatinine [Mass/Vol] 0.93 mg/dL Normal 0.70-1.30 [facility] Comment on above: Performed By: #### 0 0121, 21744, 81428, 24688, 85585, 14341, 30629, 95742 #### [facility] [address] [place] [address], [place] GFR/1.73 sq M.predicted among blacks MDRD (S/P/Bld) [Vol rate/Area] mL/min/{1.73_m2} Normal >60 [facility] Comment on above: Performed By: #### 0 0121, 40710, 00300, 66706, 41521, 85884, 97120, 25101 #### [facility] [address] [place] [address], [place] GFR/1.73 sq M.predicted among non-blacks MDRD (S/P/Bld) [Vol rate/Area] mL/min/{1.73_m2} Normal >60 [facility] Comment on above: Performed By: #### 0 0121, 00242, 88607, 42794, 20577, 66850, 02957, 84767 #### [facility] [address] [place] [address], [place] Glucose [Mass/Vol] 147 mg/dL High 70-100 [facility] Comment on above: Performed By: #### 0 0121, 22923, 39600, 08682, 40752, 99942, 17418, 00518 #### [facility] [address] [place] [address], [place] Potassium [Moles/Vol] 4.6 mmol/L Normal 3.5-5.1 [facility] Comment on above: Performed By: #### 0 0121, 65998, 97085, 06747, 12431, 86535, 01191, 47690 #### [facility] [address] [place] [address], [place] Protein [Mass/Vol] 7.2 g/dL Normal 6.0-8.3 [facility] Comment on above: Performed By: #### 0 0121, 03199, 87381, 78466, 16299, 65065, 39279, 22231 #### [facility] [address] [place] [address], [place] Sodium [Moles/Vol] 129 mmol/L Low 136-145 [facility] Comment on above: Performed By: #### 0 0121, 04057, 26983, 44430, 98405, 76485, 77537, 79808 #### [facility] [address] Urea nitrogen [Mass/Vol] 15 mg/dL Normal 7-25 [facility] Comment on above: Performed By: #### 0 0121, 54245, 20908, 99193, 00142, 45731, 88445, 45490 #### [facility] [address] DIRECT BILIon 02-16-2021 Bilirubin.direct [Mass/Vol] 0.2 mg/dL Normal 0.0-0.2 [facility] Comment on above: Performed By: #### 4 5506, 20832, 28696, 84834, 86774, 60192 #### [facility] [address] HEMOGLOBIN A1Con 02-16-2021 Glucose [Moles/Vol] 154 mmol/L Normal [facility] Comment on above: Performed By: #### 4 5506, 97841, 11440, 20113, 72661, 93299 #### [facility] [address] HbA1c (Bld) [Mass fraction] 7.0 % High 4.0-6.0 [facility] Comment on above: Performed By: #### 4 5506, 04978, 24576, 07376, [address], [address] #### [facility] [address] LIPID PROFILEon 02-16-2021 Cholesterol [Mass/Vol] 78 mg/dL Low 120-200 [facility] Comment on above: Result Comment: CHOL ESTEROL REFERENCE RANGE: 20 YEARS AND OLDER CARDIOVASCULAR RISK Less than 200 mg/dl Low Risk 200 to 239 mg/dl Borderline Risk 240 mg/dl and greater High Risk Performed By: #### 0 0121, 52756, 33626, 05728, 07519, 47967, 15835, 04482 #### [facility] [address] [place] [address], [place] Cholesterol in HDL [Mass/Vol] 41 mg/dL Normal 23-92 [facility] Comment on above: Result Comment: Slig ht variation in normal range could be due to gender and/or age. HDL CHOLESTEROL REFERENCE RANGE: 20 years and older Cardiovascular Risk > or =60 mg/dL Desirable 40 TO 59 mg/dL Low Risk <40 mg/dL High Risk Performed By: #### 0 0121, 04614, 50588, 54183, 64555, 24932, 55203, 72589 #### [facility] [address] [place] [address], [place] Cholesterol in LDL [Mass/Vol] 28 mg/dL Normal 0-130 [facility] Comment on above: Result Comment: LDL IS A CALCULATION LDL IS ONLY VALID IF THE TRIG IS LESS THAN 400. Performed By: #### 0 0121, 05101, 00650, 92288, 62506, 01224, 80284, 62065 #### [facility] [address] [place] [address], [place] Cholesterol.total/Cho lesterol in HDL [Mass ratio] 1.9 {ratio} Normal .0-4.5 [facility] Comment on above: Performed By: #### 0 0121, 41231, 85579, 13609, 88268, 67081, 38631, 45885 #### [facility] [address] [place] [address], [place] NON-HDL CHOLESTEROL 37 mg/dL Normal [facility] Comment on above: Performed By: #### 0 0121, 03325, 93839, 99717, 70183, 95507, 58707, 87961 #### [facility] [address] [place] [address], [place] Triglyceride [Mass/Vol] 44 mg/dL Normal 40-149 [facility] Comment on above: Result Comment: TRIG LYCERIDE REFERENCE RANGE: 20 YEARS AND OLDER CARDIOVASCULAR RISK LESS THAN 150 mg/dl LOW RISK 150 TO 199 mg/dl BORDERLINE RISK 200 mg/dl AND GREATER HIGH RISK Performed By: #### 0 0121, 05848, 95898, 32973, 97344, 03216, 65066, 10316 #### [facility] [address] [facility] [place] [address], [place] VLDL CHOL 9 mg/dL Normal 0-40 [facility] Comment on above: Performed By: #### 0 0121, 71456, 32398, 14514, 50614, 07550, 57551, 98783 #### [facility] [address] [facility] [place] [address], [place] MAGNESIUM BLOODon 02-16-2021 Magnesium [Mass/Vol] 1.5 mg/dL Low 1.9-2.7 [facility] Comment on above: Performed By: #### 4 5506, 25660, 09033, 34672, 82392, 40049 #### [facility] [address] [facility] [place] [address], [place] PHOSPHORUS BLOODon Phosphate [Mass/Vol] 2.4 mg/dL Low 2.5-5.0 [facility] Comment on above: Performed By: #### 0 0121, 78447, 22781, 64793, 78928, 92336, 02933, 24032 #### [facility] [address] [facility] [address] PROSPERAon 02-16-2021 PROSPERA KIT Results to be mailed directly to physician's office by reference lab. Normal [facility] Comment on above: Result Comment: Test performed by [id number] [place] [id number] No result expected. For billing and tracking purposes only. Specimen collected for transplant patient and sent to requesting hospital per Dr instructions. No charge. Performed By: #### 4 5506, 18553, 57215, 56564, 76196, 73630 #### [facility] [address] RESULT Results to be mailed directly to physician's office by reference lab. Normal [facility] Comment on above: Performed By: #### 4 5506, 32014, 06356, 49514, 90236, 65544 #### [facility] [address] [facility] [place] [address], [place] PTH INTACTon 02-16-2021 PTH INTACT 123 pg/mL High 12-88 [facility] Comment on above: Performed By: #### 4 5506, 66810, 25279, 92428, 19117, 77229 #### [facility] [address] [facility]. [address] SINGLE ANTIGEN CLASS 1on METHOD Class I Single Antigen Normal [facility] Comment on above: Order Comment: Some of [...] to frequency. Performed By: #### 4 5506, 16267, 67015, 30948, 45852, 74617 #### [facility] [address] [facility]. [address] SINGLE ANTIGEN CLASS 2on COMMENTS Normal [facility] Comment on above: Order Comment: Some of [...] Antigen Microbeads Performed By: #### 4 5506, 69820, 53000, 01015, 19905, 73232 #### [facility] [address] Result Comment: No C lass I donor specific antibody identified Class I Antigen Microbeads METHOD Class II Single Antigen Normal [facility] Comment on above: Order Comment: Some of [...] to frequency. Performed By: #### 4 5506, 52309, 45524, 55259, 76020, 06630 #### [facility] [address] [place] [address], [place] SIGNED BY Normal [facility] Comment on above: Order Comment: Some of [...] due to frequency. Result Comment: Jose A Lara MS,CHT(IRINEO),MT(ASCP) Director Financial Systems, Transplant Immunology Performed By: #### 4 5506, 35955, 37833, 42410, 30649, 42653 #### [facility] [address] TACROLIMUSon 02-16-2021 Tacrolimus (Bld) [Mass/Vol] 7.0 ng/mL Normal 5.0-20.0 [facility] Comment on above: Result Comment: The [employer] Tacrolimus assay is a delayed one-step immunoassay for the quantitative determination of tacrolimus in human whole blood using the chemiluminescent microparticle immunoassay (CMIA) technology with flexible assay protocols, referred to as Chemiflex. Performed By: #### 4 5506, 84924, 75302, 06350, 51305, 87107 #### [facility] [address] TESTOSTERONE, FREE+SHBG+TOTA L ILon 02-16-2021 [place] Normal [facility] Comment on above: Result Comment: Test Performed by [employer] [address] [place] [address] - Released 02/16/2021 18:49 SEX HORM BIND GLOB 52 nmol/L Normal 11-80 [facility] Testosterone [Mass/Vol] 399 ng/dL Normal 220-1000 [facility] TESTOSTERONE, FREE 60.0 pg/mL Normal 47-244 [facility] Comment on above: Result Comment: The concentration of free testosterone is derived from a mathematical expression based on the constant for the binding of testosterone to albumin and/or sex hormone binding globulin. URIC ACID BLOODon 02-16-2021 Urate [Mass/Vol] 8.0 mg/dL High 4.4-7.6 [facility] Comment on above: Performed By: #### 0 0121, 03480, 58844, 88167, 16463, 71058, 86916, 77988 #### [facility] [address] [place] [address], [place] VITAMIN D 25-HYDROXYon 02-16 VITAMIN D 25-OH 35.1 ng/mL Normal 30.0-80.0 [facility] Comment on above: Result Comment: >80. 0 Toxicity possible Performed By: #### 4 5506, 13697, 14496, 41373, 89535, 17135 #### [facility] [address] [place] [address], [place] Vital Signs Date Time Vital Sign Value Performing Clinician Facility 03-05-2022 09:30-0400 Diastolic blood pressure 74 mm[Hg] MD Jericho Mccarthy Work Phone: [facility] 03-05-2022 09:30-0400 Heart rate 58 /min MD Jericho Mccarthy Work Phone: [facility] 03-05-2022 09:30-0400 Respiratory rate 18 /min MD Jericho Mccarthy Work Phone: [facility] 03-05-2022 09:30-0400 SaO2% (BldA) [Mass fraction] 99 % MD Jericho Mccarthy Work Phone: [facility] 03-05-2022 09:30-0400 Systolic blood pressure 133 mm[Hg] MD Jericho Mccarthy Work Phone: [facility] 03-05-2022 07:01-0400 Body height 167.64 cm MD Jericho Mccarthy Work Phone: [facility] 03-05-2022 07:01-0400 Body temperature 97.9 [degF] MD Jericho Mccarthy Work Phone: [facility] 03-05-2022 07:01-0400 Body weight 74.84 kg MD Jericho Mccarthy Work Phone: [facility] 01-21-2022 10:30-0400 Body height 167.64 cm Tj Wells Other [facility] 01-21-2022 10:30-0400 Body mass index (BMI) [Ratio] 26.47 kg/m2 Tj Wells Other [facility] 01-21-2022 10:30-0400 Body weight 74.39 kg Tj Wells Other [facility] 01-21-2022 10:30-0400 Diastolic blood pressure 71 mm[Hg] Tj Wells Other [facility] Other 01-21-2022 10:30-0400 Systolic blood pressure 148 mm[Hg] Tj Wells Other [facility] Other Encounters Encounter Date Encounter Type Care Provider Facility Start: 07-09-2023 End: 07-09-2023 ambulatory PRICE MARTINES [facility] Start: 05-22-2023 End: 05-22-2023 ambulatory JERICHO MCCARTHY Not Available Start: 05-19-2023 End: 05-19-2023 ambulatory JERICHO ABAD [facility] Start: 04-28-2023 Evaluation and management of inpatient ESTHER JONNYDORA [facility] Start: 04-28-2023 Evaluation and management of inpatient NOBOBJASVIR ARGUELLODARCY [facility] Start: 04-28-2023 End: 04-30-2023 Evaluation and management of inpatient MENDY MCARTHURCHRIS [facility] Start: 04-22-2023 End: 04-22-2023 ambulatory BENJA MCGHEE [facility] Start: 11-11-2022 End: 11-11-2022 ambulatory JERICHO ABAD [facility] Start: 10-04-2022 End: 10-04-2022 ambulatory MARIO EGAN [facility] Start: 10-03-2022 End: 10-04-[address] DOCTOR MCCABE Facility:[facility] Start: 08-30-2022 End: 08-31-[address] DOCTOR MCCABE Facility:[facility] Start: 08-01-2022 End: 08-02-[address] ALVAREZ MISImani Facility:[facility] Start: 07-04-2022 End: 07-05-[address] DOCTOR MCCABE Facility:[facility] Start: 05-23-2022 End: 05-24-[address] ALVAREZ MISC Facility:[facility] Start: 04-30-2022 End: 05-01-[address] ALVAREZ MISImani Facility:[facility] Start: 04-03-2022 End: 04-04-[address] DOCTOR MCCABE Facility:[facility] Start: 03-08-2022 End: 03-09-[address] NAGA BOSCH Facility:[facility] Start: 03-05-2022 End: 03-05-2022 ambulatory Tj Wells Facility:[facility] Start: 03-05-2022 End: 03-05-2022 Admission to same day surgery center MD Jericho Mccarthy Work Phone: [facility] Start: 03-05-2022 End: 03-05-2022 ambulatory MD Jericho Mccarthy Work Phone: [facility] Work Phone: Start: 03-01-2022 End: 03-01-2022 ambulatory Tj Wells Facility:[facility] Start: 03-01-2022 End: 03-01-2022 ambulatory MD Jericho Mccarthy Work Phone: [facility] Work Phone: Start: 03-01-2022 End: 03-01-2022 Patient encounter procedure MD Jericho Mccarthy Work Phone: [facility]-Pre[facility] Testing Start: 02-01-2022 End: 02-02-[address] DOCTOR MCCABE Facility:[facility] Start: 01-21-2022 End: 01-21-2022 ambulatory Tj Wells Other [facility] Start: 01-21-2022 Office outpatient ne w 45 minutes Tj Wells [facility] G[facility] Start: 01-04-2022 End: 01-05-[address] [...] Date Care Activity Detail Author Start: 03-05-2022 [facility] Patient Education Colitis [facility] Work Phone: Immunizations Immunization Date Immunization Notes Care Provider Fa alicia 04-30-2021 COVID-19 mRNA Bivale nt Booster (Pfizer) MD Jericho Mccarthy Work Phone: [facility] 08-01-2020 COVID-19 mRNA, Comirnaty (Pfizer) MD Jericho Mccarthy Work Phone: [facility] 07-12-2020 COVID-19 mRNA Comirnaty (Pfizer) MD Jericho Mccarthy Work Phone: [facility] 02-13-2017 influenza, seasonal, injectable Tj Wells Other [facility] Other 06-27-2016 influenza, seasonal, injectable Tj Wells Other [facility] Other 02-01-2016 pneumococcal polysaccharide vaccine, 23 valent Tj Wells Other [facility] Other Payers Date Payer Category Payer Private Health Insurance [id number] 2022 Self-pay [id number] 2022 Unknown [id number] 1958 Medicare [id number] 2.1 [id number] 1958 Private Health Insurance [id number] [id number] 1951 Unknown [id number] 2.16.84 0.1.823808.3.579.2.593 1950 Unknown [id number] 2.16.84 0.1.704044.3.579.2.593 1950 Unknown [id number] 2.16.84 0.1.212647.3.579.2.593 1950 Unknown [id number] 2.16.84 0.1.720586.3.579.2.593 1950 Unknown [id number] 2.16.84 0.1.986898.3.579.2.593 1950 Unknown [id number] 2.16.84 0.1.221836.3.579.2.593 1950 Unknown [id number] 2.16.84 0.1.089977.3.579.2.593 1950 Unknown [id number] 2.16.84 0.1.739956.3.579.2.593 1950 Unknown [id number] 2.16.84 0.1.212204.3.579.2.593 1951 Unknown [id number] 2.16.84 0.1.154487.3.579.2.593 1951 Unknown [id number] 2.16.84 0.1.440605.3.579.2.593 1950 Unknown [id number] 2.16.84 0.1.658041.3.579.2.593 1950 Unknown [id number] 2.16.84 0.1.058869.3.579.2.1259 Unknown [id number] 2.16.8 40.1.962675.3.579.2.531 Unknown [id number] 2.16.8 40.1.006457.3.579.2.531 Social History Date Type Detail Facility Unknown if ever smoked [facility] Other Sex Assigned At Sex Assigned At Bir th [facility] Other Start: 11-11-2019 End: 03-05-2022 Tobacco smoking status NHIS Ex-smoker (finding) [facility] Start: 1950 Sex Assigned At Male [facility] Medical Equipment Procedure Code Equipment Code Equipment Original Text Equipment Identifier Dates Creation or revision of arteriovenous fistula GRAFT ARTEGRAFT 6MM X 40CM FDA Start: 01-14-2017 Creation or revision of arteriovenous fistula GRAFT ARTEGRAFT 6MM X 40CM FDA Start: 01-14-2017 Goals Date Patient Goal Desired Activity /State Clinical Notes 09-09-2009 to 07-09-2023 Note Date & Type Note Facility 07-09-2023 Note 07/10/23 Chief Complaint Patient presents with Kidney Follow-up Patient has no major concerns today PCP: Jericho Mccarthy MD Txp Referring: Preferred Pharmacy: [id number] [place], [place] - [address] [facility] [address] [facility] [address] [facility] [address] [address] [facility] [address] [place] [address] 2051 [facility] [address] [address] Subjective Visit Vitals BP 124/56 (BP Location: Right arm, Patient Position: Sitting, BP Cuff Size: Adult) Pulse 54 Temp 36.5 ???C (97.7 ???F) (Oral) Resp 14 Ht 1.676 m (5' 6 ) Wt 70.6 kg (155 lb 9.6 oz) BMI 25.11 kg/m??? Smoking Status Former BSA 1.81 m??? Allergies Allergen Reactions Nsaids (Non-Steroidal Anti-Inflammatory Drug) Medication Documentation Review Audit Reviewed by Julita Lentz LPN (Licensed Nurse) on 07/09/23 at 0902 Medication Order Taking? Sig Documenting Provider Last Dose Status aMILoride (Midamor) 5 mg tablet [id number] No Take 5 mg by mouth in the morning. Historical Provider, Not Taking Flag for Review aMILoride (Midamor) 5 mg tablet [id number] Yes Take 1 tablet (5 mg) by mouth in the morning. Jericho Abad NP Taking Active amLODIPine (Norvasc) 10 mg tablet [id number] Yes Take 1 tablet (10 mg) by mouth in the morning. Benja Mcghee MD Taking Active atorvastatin (Lipitor) 10 mg tablet [id number] Yes Take 1 tablet (10 mg) by mouth every other day. Mario Egan NP Taking Active blood-glucose meter misc [id number] Yes Test daily before all meals/snacks and once before bedtime. With 100 lancets and strips Esther Garduno MD Taking Active carvedilol (Coreg) 12.5 mg tablet [id number] Yes Take 1 tablet (12.5 mg) by mouth with breakfast and with evening meal. Mario Egan NP Taking Active cinacalcet (Sensipar) 30 mg tablet [id number] Yes Take 1 tablet every day by oral route. Praveena Cohen MD Taking Active furosemide (Lasix) 20 mg tablet [id number] Yes take 1 tablet by mouth once daily Naga Bosch MD Taking Active insulin glargine (Lantus Solostar U-100 Insulin) 100 unit/mL (3 mL) injection pen [id number] Yes Inject 20 Units under the skin at bedtime. Esther Garduno MD Taking Active isopropyl alcohoL 70 % towelette [id number] Yes Test daily before all meals/snacks and once before bedtime. Esther Garduno MD Taking Active lisinopril 20 mg tablet [id number] Yes Take 1 tablet (20 mg) by mouth in the morning. Benja Mcghee MD Taking Active magnesium oxide (Mag-Ox) 400 mg (241.3 mg magnesium) tablet [id number] Yes Take 2 tablets (800 mg) by mouth in the morning, at noon, and at bedtime. take 2 tablets by mouth three times a day with meals Jericho Abad NP Taking Active metFORMIN (Glucophage) 500 mg tablet [id number] Yes Take 1 tablet (500 mg) by mouth with breakfast and with evening meal. Esther Garduno MD Taking Active mycophenolate (Myfortic) 180 mg EC tablet [id number] Yes Take 4 tablets (720 mg) by mouth in the morning and at bedtime. Jericho Abad NP Taking Active omeprazole OTC (PriLOSEC OTC) 20 mg EC tablet [id number] Yes Take 1 tablet (20 mg) by mouth before breakfast. Do not crush, chew, or split. Esther Garduno MD Taking Active pen needle, diabetic 31 gauge x 5/16 needle [id number] Yes Use to inject 1-4 times daily as directed. Esther Garduno MD Taking Active sildenafil (Revatio) 20 mg tablet [id number] Yes Take 1 tablet 3 times a day by oral route for 90 days. Benja Mcghee MD Taking Active sulfaSALAzine (Azulfidine) 500 mg EC tablet [id number] Yes Take 500 mg by mouth in the morning and at bedtime. Historical Provider, Taking Active tacrolimus (Prograf) 0.5 mg capsule [id number] Yes Take 1 capsule (0.5 mg) by [...] effusion Polycystic kidney DAVID (acute kidney injury) ([facility]/HCC) Hypomagnesemia Family History Problem Relation Name Age of Onset Diabetes Mother Hyperten (more content not included)... [facility] 07-08-2023 Note Left message for pat ient to take one extra lasix 20 mg today and we will retest tomorrow. Per Dr Martines po. [facility] 07-08-[address] dk dhaliwal, patient added to Dr Moya schedule tomorrow am due to critical low sodium level of 124. Patient notified and will arrive between 8:30 am and 9 am for labs. [facility] 05-19-2023 Note Per phone order of Petr woo MD, Mag IV 3 grams ordered Mag 1.3. BOP notified. Pt notified by phone, states he recently resumed the Amiloride. He is not certain he will agree to return for the infusion. States he reviewed the low Mag level today with Jericho Doran [employer] and was taking 8-9 tablets daily but is now reducing to Mag Oxide 800mg TID. [facility] 05-19-2023 Note 05/19/23 Chief Complaint Patient presents with Kidney Follow-up No concerns PCP: Jericho Mccarthy MD Txp Referring: Preferred Pharmacy: [facility] #[id number] [place], [place] - [address] [facility] [address] [facility] [address] [facility] [address] [place] [address] [place] [address] [address] [address] [facility] [address] [facility] [address] [place] [address] [address] [facility] [address] [address] Subjective Visit Vitals BP 120/62 (BP Location: [...] Dose Status aMILoride (Midamor) 5 mg tablet [id number] Yes Take 5 mg by mouth in the morning. Historical Provider, Taking Active amLODIPine (Norvasc) 10 mg tablet [id number] Yes Take 1 tablet (10 mg) by mouth in the morning. Benja Mcghee MD Taking Active atorvastatin (Lipitor) 10 mg tablet [id number] Yes Take 1 tablet (10 mg) by mouth every other day. Mario Egan NP Taking Active blood-glucose meter [facility] [id number] Yes Test daily before all meals/snacks and once before bedtime. With 100 lancets and strips Esther Garduno MD Taking Active carvedilol (Coreg) 12.5 mg tablet [id number] Yes Take 1 tablet (12.5 mg) by mouth with breakfast and with evening meal. Mario Egan NP Taking Active cinacalcet (Sensipar) 30 mg tablet [id number] Yes Take 1 tablet every day by oral route. Praveena Cohen MD Taking Active furosemide (Lasix) 20 mg tablet [id number] Yes take 1 tablet by mouth once daily Naga Bosch MD Taking Active insulin glargine (Lantus Solostar U-100 Insulin) 100 unit/mL (3 mL) injection pen [id number] Yes Inject 20 Units under the skin at bedtime. Esther Garduno MD Taking Active isopropyl alcohoL 70 % towelette [id number] Yes Test daily before all meals/snacks and once before bedtime. Esther Garduno MD Taking Active lisinopril 20 mg tablet [id number] Yes Take 1 tablet (20 mg) by mouth in the morning. Benja Mcghee MD Taking Active magnesium oxide (Mag-Ox) 400 mg (241.3 mg magnesium) tablet [id number] Yes take 2 tablets by mouth three times a day with meals Woodrow Root MD Taking Active metFORMIN (Glucophage) 500 mg tablet [id number] Yes Take 1 tablet (500 mg) by mouth with breakfast and with evening meal. Esther Garduno MD Taking Active mycophenolate (Myfortic) 180 mg EC tablet [id number] Yes Take 4 tablets (720 mg) by mouth in the morning and at bedtime. Jericho Abad NP Taking Active omeprazole OTC (PriLOSEC OTC) 20 mg EC tablet [id number] Yes Take 1 tablet (20 mg) by mouth before breakfast. Do not crush, chew, or split. Esther Garduno MD Taking Active pen needle, diabetic 31 gauge x 5/16 needle [id number] Yes Use to inject 1-4 times daily as directed. Esther Garduno MD Taking Active sildenafil (Revatio) 20 mg tablet [id number] Yes Take 1 tablet 3 times a day by oral route for 90 days. Benja Mcghee MD Taking Active sulfaSALAzine (Azulfidine) 500 mg EC tablet [id number] Yes Take 500 mg by mouth in the morning and at bedtime. Historical Provider, Taking Active tacrolimus (Prograf) 0.5 mg capsule [id number] Yes Take 1 capsule (0.5 mg) by mouth in the morning and at bedtime. Jericho Abad, PRUDENCIO Taking Active Immunization History Administered Date(s) Administered Influenza, Seasonal, Quadrivalent, Adjuvanted 04/30/2021 Influenza, Unspecified 02/09/2017 Influenza, injectable, quadrivalent 02/09/2019 Influenza, seasonal, injectable 06/27/2016, 02/13/2017 Pfizer SARS-CoV-2 Vaccination 07/12/2020, 08/02/2020, 04/30/2021 Pneumococcal Polysaccharide PPV23 02/01/2016 Patient Active Problem List Diagnosis Cataract Congestive heart failure (CMS/HCC) Coronary atherosclerosis End-stage renal disease ([facility]/HCC) History of renal transplant Peripheral vascular disease ([facility]/HCC) Increased infection risk status post immunosuppressive therapy Multiple congenital cysts of kidney Moderate mixed hyperlipidemia not requiring statin therapy COLD (chronic obstructive lung disease) (CMS/HCC) Essential hypertension, benign Pleurisy with effusion Polycystic kidney DAVID (acute kidney injury) ([facility]) Hypomagnesemia Family History Problem Relation Name Age of Onset Diabetes Mother Hypertension Mother Coronary artery disease Mother Other (cabg) Mother Cystic kidney disease Mother Hypertension Father Skin cancer Father Cystic kidney disease Father Cystic kidney disease Sister Heart disease Brother ALS Brother (more content not included)... [facility] 05-14-2023 Note Patient states he mi ssed a few doses of magnesium and will get back started on and restart the amlodipine per Dr Dk dhaliwal. [facility] 04-30-2023 Note Attestation signed by Ananda Pan [...] as a transfer from outside hospital in [place] for concerns of possible DKA, hyponatremia, and [...] Dose Status aMILoride (Midamor) 5 mg tablet [id number] Take 1 tablet (5 mg) by mouth in the morning. Woodrow Root MD Active amLODIPine (Norvasc) 10 mg tablet [id number] Take 1 tablet (10 mg) by mouth in the morning. Benja Mcghee MD Active atorvastatin (Lipitor) 10 mg tablet [id number] Take 1 tablet (10 mg) by mouth every other day. Mario Egan NP Active carvedilol (Coreg) 12.5 mg tablet [id number] Take 1 tablet (12.5 mg) by mouth with breakfast and with evening meal. Mario Egan NP Active cinacalcet (Sensipar) 30 mg tablet [id number] Take 1 tablet every day by oral route. Praveena Cohen MD Active furosemide (Lasix) 20 mg tablet [id number] take 1 tablet by mouth once daily Naga Bosch MD Active lisinopril 20 mg tablet [id number] Take 1 tablet (20 mg) by mouth in the morning. Benja Mcghee MD Active magnesium oxide (Mag-Ox) 400 mg (241.3 mg magnesium) tablet [id number] take 2 tablets by mo (more content not included)... [facility] 04-30-2023 Note Hospital Medicine Discharge Summary Final Discharge Diagnosis: DKA Admission Diagnosis: DAVID (acute kidney injury) (CMS/[facility]) [N17.9] Hospital course: 72 y.o. male who came from home with DAVID with hyponatremia and uncontrolled hyperglycemia. This is a 72 years old gentleman with a medical history of end-stage renal disease s/p renal transplant 3 years ago here in [facility], peripheral vascular disease, pulmonary hypertension, CAD, and hypertension. Mixed hyperlipidemia, COPD, polycystic kidneys, cataract. Came in as transfer from the outside facility hospital in [place] for concern of possible uncontrolled hyperglycemia with [...] Center 05/02/2023 9:00 AM Ramos Hendrickson PA-C [facility] END[facility]CR [facility] 05/19/2023 9:00 AM Jericho Abad NP [...] aMILoride 5 mg tablet Commonly known as: [facility] Where to Get Your Medications These medications were sent to [id number] - [place], [place] - [address] [address] blood-glucose meter mis insulin glargine 100 unit/mL (3 mL) injection [...] [id number] - (more content not included)... [facility] 04-29-2023 Note Hospital Medicine Daily Progress Note - 04/29/2023 11:18 AM; Room: 517/5172-01 Admission: 04/27/2023 10:59 PM; Length of stay: 2 days THE HOSPITALIST TEAM PREFERS TO USE [employer] FOR COMMUNICATION 7AM-7PM. IF I DO NOT RESPOND WITHIN 15 MINUTES, PLEASE PAGE ME/CALL THROUGH THE [employer] SUB[employer]. FROM 7PM-7AM, PLEASE PAGE [phone](COVR) Code Status: Full Code Barriers to Discharge: [...] Problems Principal Problem: DAVID (acute kidney injury) ([facility]) Assessment and Plan # DKA in newly [...] Academy of Nutrition and Dietetics and the [place] [employer] of Enteral and Parenteral Nutrition, meets [...] days Lab Units 04/29/23 0403 04/29/23 0000 04/28/23 2026 04/28/23 0514 04/27/23 2336 SODIUM mmol/L 133* [...] last 7 days Lab Units 04/29/23 0803 04/28/23 2016 04/28/23 1832 04/28/23 1739 04/28/23 1631 04/28/23 1534 [...] 0.67-0.73. Medial ki (more content not included)... [facility] 04-29-2023 Note Attestation signed by Ananda Pan [...] as a transfer from outside hospital in [place] for concerns of possible DKA, hyponatremia, and [...] mL/kg); IV Piggyback:1108] Out: 2000 (27.3 mL/kg) [Urine:1999 (0.8 mL/kg/hr); Stool:1] Weight: 73.3 kg Vital [...] Dose Status aMILoride (Midamor) 5 mg tablet [id number] Take 1 tablet (5 mg) by mouth in the morning. Woodrow Root MD Active amLODIPine (Norvasc) 10 mg tablet [id number] Take 1 tablet (10 mg) by mouth in the morning. Benja Mcghee MD Active atorvastatin (Lipitor) 10 mg tablet [id number] Take 1 tablet (10 mg) by mouth every other day. Mario Egan NP Active carvedilol (Coreg) 12.5 mg tablet [id number] Take 1 tablet (12.5 mg) by mouth with breakfast and with evening meal. Mario Egan NP Active cinacalcet (Sensipar) 30 mg tablet [id number] Take 1 tablet every day by oral route. Praveena Cohen MD Acti (more content not included)... [facility] 04-28-2023 Note Hospital Medicine Daily Progress Note - 04/28/2023 12:34 PM; Room: [address] [place] [address] Admission: 04/27/2023 10:59 PM; Length of stay: 1 days THE HOSPITALIST TEAM PREFERS TO USE [employer] FOR COMMUNICATION 7AM-7PM. IF I DO NOT RESPOND WITHIN 15 MINUTES, PLEASE PAGE ME/CALL THROUGH THE [employer] SUBSTRATE. FROM 7PM-7AM, PLEASE PAGE [phone](COVR) Code Status: Full Code Barriers to Discharge: [...] Problems Principal Problem: DAVID (acute kidney injury) ([facility]) Assessment and Plan # DKA in newly [...] Academy of Nutrition and Dietetics and the [place] Society of Enteral and Parenteral Nutrition, meets [...] Cardiac silhouette is (more content not included)... [facility] 04-28-2023 Note . Hospital Medicine History and Physical 04/27/2023 11:16 PM THE HOSPITALIST TEAM PREFERS TO USE [employer] FOR COMMUNICATION 7AM-7PM. IF I DO NOT RESPOND WITHIN 15 MINUTES, PLEASE PAGE ME/CALL THROUGH THE TESTER [employer] SUBSTRATE. FROM 7PM-7AM, PLEASE PAGE [phone](COVR) Chief Complaint No chief complaint on file. History of Present Illness Wm Suarez is an 72 y.o. male who came from home with DAVID with hyponatremia and uncontrolled hyperglycemia. This is a 72 years old gentleman with a medical history of end-stage renal disease s/p renal transplant 3 years ago here in [facility], peripheral vascular disease, pulmonary hypertension, CAD, and hypertension. Mixed hyperlipidemia, COPD, polycystic kidneys, cataract. Came in as transfer from the outside facility hospital in [place] for concern of possible uncontrolled hyperglycemia with [...] Diagnosis Date Noted DAVID (acute kidney injury) ([facility]) 04/27/2023 COLD (chronic obstructive lung disease) ([facility]) 04/16/2023 Essential hypertension, benign 04/16/2023 Pleurisy with effusion 04/16/2023 Polycystic kidney 04/16/2023 Moderate mixed hyperlipidemia not requiring statin therapy 04/16/2022 Cataract 01/29/2022 Congestive heart failure ([facility]) 01/29/2022 Coronary atherosclerosis 01/29/2022 Multiple congenital cysts of kidney 01/29/2022 History of renal transplant 10/31/2021 Increased infection risk status post immunosuppressive therapy 10/31/2021 Peripheral vascular disease ([facility]) 01/23/2018 End-stage renal disease ([facility]) 07/22/2009 Assessment and Plan #Acute kidney injury [...] this hospital stay by a member of [facility]. Past Medical History Past Medical History: Diagnosis Date CHF (congestive heart failure) ([facility]/HCC) Chronic kidney disease Coronary artery disease Hypertension [...] file Tobacco Use (more content not included)... [facility] 04-22-2023 Note [facility] [facility] Subjective Wm Suarez is a 72 y.o. year old male patient being seen for 6 mo follow up pulmonary hypertension, CAD, and hypertension. C/o dizziness and LUE numbness. Denies chest pain and palpitations. ORTEGA is intermittent. Patient Active Problem List Diagnosis Cataract Congestive heart failure (CMS/HCC) Coronary atherosclerosis End-stage renal disease ([facility]/HCC) History of renal transplant Peripheral vascular disease (CMS/HCC) Increased infection risk status post immunosuppressive therapy Multiple congenital cysts of kidney Moderate mixed hyperlipidemia not requiring statin therapy COLD (chronic obstructive lung disease) ([facility]/HCC) Essential hypertension, benign Pleurisy with effusion Polycystic [...] overload/acute heart failure admission on 08/[address] [facility]. He had couple of dialysis session during [...] lower extremity edema. Cardiac catheterization 03/04/2019: 1. [id number] single-vessel coronary artery disease with 50% stenosis in the mid to distal circumflex and minimal disease in the LAD and RCA. 2. Moderate elevation of filling pressures. 3. Moderate pulmonary hypertension. 4. Preserved cardiac output and cardiac index. RA 8, RV 59/4, 12. PA (more content not included)... [facility] 04-02-2023 Note New standing lab ord er placed in today's outgoing mail. Following call from clinic [facility] that pt is @ [facility] for lab draws, faxed to [phone] new order and requested [facility] fax all lab results to [place] [facility] as last monthly lab results were received September 2022. Pt notified order sent & mailed and to contact [place] [facility] monthly when labs are completed to confirm receipt or have testing @ [facility]. He acknowledged. Encouraged to FU next week with [place] [facility]. [facility] 11-13-2022 Note Received call from mariam huntley inquiring about Amiloride. Rx sent as ordered on Friday. Pt mailed tips for diarrhea stating liquid Maalox is not helpful. States he is taking six Mag tablets every day. Reviewed probiotic and Miralax tip with pt by phone. Verbalized understanding. [facility] 11-11-2022 Note Updated Dk MOSES by phone today Reviewed Mag level 1.3 and per MD phone order start Amiloride 5mg every day and to watch K levels. Detailed voicemail left on home phone [phone] with new Rx, reason for change and to watch K levels. Tac pending. No voicemail on listed cell phone. Spoke with mohancici Haq Sylvianeena emergency contact [phone] who sets up his meds. She was advised of new RX and she stated she is unsure if pt is taking Mag Oxide due to side effects of diarrhea. Advised to resume dosing and discussed tips for diarrhea including liquid Maalox with each dose and she verbalized understanding (states she had kidney transplant and takes Mag). Plans to fill amiloride dosing. [facility] 11-11-2022 Note Notified pt that his Hgb AIC 8.5 and to contact PCP for improved glucose control to preserve health of kidney transplant and general health. Pt verbalized understanding. [facility] 11-11-2022 Note 11/11/22 Chief Complaint Patient presents with Kidney Follow-up 6 mo follow No concerns PCP: Jericho Mccarthy MD Txp Referring: [facility]: [id number] - [place], [place] - [address] [facility] [phone] [facility] [address] [address] Subjective Visit Vitals BP 134/61 (BP Location: Right arm, Patient Position: Sitting) Pulse 56 Temp 36.4 ???C (97.6 ???F) (Oral) Ht 1.676 m (5' 6 ) Wt 77.7 kg (171 lb 6.4 oz) BMI 27.66 kg/m??? Smoking Status Former BSA 1.9 m??? Allergies Allergen Reactions Nsaids (Non-Steroidal Anti-Inflammatory Drug) Medication Documentation Review Audit Reviewed by Judith Royal MA (Service Desk Agent) on 11/11/22 at 0830 Medication Order Taking? Sig Documenting Provider Last Dose Status amLODIPine (Norvasc) 10 mg tablet [id number] Yes Take 1 tablet (10 mg) by mouth in the morning. Benja Mcghee MD Taking Active atorvastatin (Lipitor) 10 mg tablet [id number] Yes Take 1 tablet (10 mg) by mouth every other day. Mario Egan NP Taking Active carvedilol (Coreg) 12.5 mg tablet [id number] Yes Take 1 tablet (12.5 mg) by mouth with breakfast and with evening meal. Mario Egan NP Taking Active cinacalcet (Sensipar) 30 mg tablet [id number] Yes Take 1 tablet every day by oral route. Praveena Cohen MD Taking Active furosemide (Lasix) 20 mg tablet [id number] Yes take 1 tablet by mouth once daily Naga Bosch MD Taking Active lisinopril 20 mg tablet [id number] Yes Take 1 tablet by mouth in the morning. Historical Provider, Taking Active magnesium oxide (Mag-Ox) 400 mg (241.3 mg magnesium) tablet [id number] Yes take 2 tablets by mouth three times a day with meals Woodrow Root MD Taking Active mycophenolate (Myfortic) 180 mg EC tablet [id number] Yes Take 4 tablets (720 mg) by mouth in the morning and at bedtime. Jericho Abad NP Taking Active sildenafil (Revatio) 20 mg tablet [id number] Yes Take 1 tablet 3 times a day by oral route for 90 days. Mario Egan NP Taking Active sulfaSALAzine (Azulfidine) 500 mg EC tablet [id number] Yes Take 500 mg by mouth in the morning and at bedtime. Historical Provider, Taking Active tacrolimus (Prograf) 0.5 mg capsule [id number] Yes Take 1 capsule (0.5 mg) by [...] hypertension, heart roshan (more content not included)... [facility] 10-04-2022 Note Patient here for 6 m o follow up CAD, pulmonary hypertension, and hx of renal transplant. Just had monthly labs drawn yesterday. Denies chest pain and SOB. No new cardiac symptoms. Doing well. Review of Systems Cardiovascular: Positive for leg swelling. Musculoskeletal: Positive for arthritis and back pain. Neurological: Positive for light-headedness. All other systems reviewed and are negative. [facility] 10-04-2022 Note Cardiovascular Medic [facility] SUBJECTIVE Chief Complaint Patient [...] Ref Range Status (more content not included)... [facility] 03-05-2022 Procedure note [facility] 01-21-2022 Evaluation note Encounter Date Diagnosis Assessment Notes Jan, Diarrhea (ICD-10 - R19.7) Colonoscopy Okay to take Imodium - 1 tablet every morning Jan, Fecal urgency (ICD-10 - R15.2) [facility] Other 05-01-2010 History general Narrative - Reported* [...] Hospitalization History Kidney Issue; on transplant list ([facility]) 02/2018 Hospitalization History pulmonary embolism 0 [facility] Other Evaluation noteNo assessment information available [facility] Work Phone: Evaluation note* Diagnosis Onset Date Resolution Status Diarrhea acute [facility] Work Phone: Hospital Discharge instructions Additional [...] if you have any problems. -Office number [phone] Work Phone: Reason for visit NarrativePATIENT REFERRED BY DR. MCCARTHY FOR EVALUATION AND [facility]ATMENT [facility] Other Summary Purpose Family History No Family [...] section and content) DATE CREATED AUTHOR [facility] DATE CREATED AUTHOR AUTHOR'S ORGANIZ ATION 11/02/[address] [facility] DATE CREATED AUTHOR AUTHOR'S ORGANIZ ATION 03/12/2022 [facility] DATE CREATED AUTHOR AUTHOR'S ORGANIZ ATION 10/18/2022 [facility] DATE CREATED AUTHOR AUTHOR'S ORGANIZ ATION 05/23/2023 [facility] EPIC DATE CREATED AUTHOR AUTHOR'S ORGANIZ ATION 07/14/2023 [facility] Care Teams (unrecognized sec tion and [...] BE BASED ON THE PRIMARY CLINICAL RECORDS. [facility] Work For [employer] [facility]. provides no warranty or guarantee of the accuracy or completeness of information in this document.
[2023-08-22 07:25] LABS: Basophils Percent Auto 0.3 % (0.2-2.0); Eosinophils Absolute Auto 0.2 10^3/uL (0.0-0.7); Eosinophils Percent Auto 3.1 % (0.9-7.0); Hematocrit 35.1 % (42.0-54.0); Hemoglobin 11.1 g/dL (14.0-18.0); Immature Granulocytes Abs Auto 0.04 10^3/uL (0.00-0.03); Immature Granulocytes Pct Auto 0.6 % (0.0-0.5); Lymphocytes Absolute Auto 0.9 10^3/uL (1.2-3.8); Lymphocytes Percent Auto 12.6 % (20.5-60.0); Mean Corpuscular HGB Conc 31.6 g/dL (29.9-35.2); Mean Corpuscular Hemoglobin 29.3 pg (25.9-34.0); Mean Corpuscular Volume 92.6 fL (80.0-94.0); Monocytes Absolute Auto 0.6 10^3/uL (0.3-0.8); Monocytes Percent Auto 8.9 % (1.7-12.0); Neutrophils Absolute Auto 5.3 10^3/uL (1.4-6.5); Neutrophils Percent Auto 74.5 % (43.0-75.0); Platelet Count 227 10^3/uL (150-450); Red Blood Count 3.79 10^6/uL (4.70-6.10); Red Cell Distribution Width 14.1 % (11.0-15.0); White Blood Count 7.1 10^3/uL (4.0-11.0)
[2023-08-22 08:11] LABS: Phosphorus 4.1 mg/dL (2.6-4.7)
[2023-08-22 08:14] LABS: Alanine Aminotransferase 20 U/L (16-63); Albumin Globulin Ratio 1.1; Albumin Level 3.7 g/dL (3.4-5.0); Alkaline Phosphatase 84 U/L (46-116); Anion Gap 13.3; Aspartate Amino Transferase 14 U/L (15-37); BUN Creatinine Ratio 16.3; Bilirubin Direct 0.1 mg/dL (0.0-0.2); Bilirubin Total 0.3 mg/dL (0.2-1.0); Calcium 9.3 mg/dL (8.5-10.1); Carbon Dioxide 28.3 mmol/L (21.0-32.0); Chloride 103 mmol/L (98-107); Estimated GFR (African America >60 (>=60); Estimated GFR (Non-African Ame >60 (>=60); Globulin 3.3 g/dL; Glucose 86 mg/dL (74-106); Magnesium 1.7 mg/dL (1.8-2.4); Potassium 4.6 mmol/L (3.5-5.1); Sodium 140 mmol/L (136-145); Uric Acid 5.7 mg/dL (3.5-7.2)
[2023-08-25 17:07] LABS: Tacrolimus (FK506), Blood 2.4 ng/mL (2.0-20.0)
== END 2023-08-22 06:56 | disposition home or self-care (01) ==
LOC: LAB 06:58
PROVIDERS: PCP Family Medicine
DX: R73.02 Impaired glucose tolerance (oral) (principal); Z94.0 Kidney transplant status
CPT/HCPCS: 36415; 80053; 80197; 82248; 83735; 84100; 84550; 85025

== ENCOUNTER 2023-10-03 13:25 | Emergency (ER) | payer MEDICARE, OTHER, SELFPAY ==
[2023-10-03 13:39] VITALS: BP 126/56; PULSE 61; TEMP 36.7; O2SAT 97; O2SAT 98
[2023-10-03 13:40] VITALS: PULSE 58; O2SAT 98
--- NOTE | 2023-10-03 13:43 | XR_ITS ---
The [address] [address] Patient Name: ROGER KERR MRN: [id number] date: 1950 Sex: M Assigned Patient Location: ER Current Patient Location: Accession/Order Number: [id number] Exam Date: 10/03/2023 14:35 Report Date: 10/03/2023 15:07 At the request of: SAYRA GASCA Procedure: XR knee LT 4V EXAM: XR chest 1V, XR knee LT 4V, XR elbow LT min 3V HISTORY: Dizzy fell recently COMPARISON: Chest study dated 05/18/2019 TECHNIQUE: PA view of the chest was obtained. FINDINGS: Heart and mediastinal contours are unremarkable in appearance. Mild COPD suggested. Slight patchy and linear densities in the right mid and upper lung field regions, consider atelectatic, fibrotic and/or minimal infiltrative changes. No evidence of consolidation. No obvious pneumothorax. Postoperative clips in the left axillary region. 4 views of the left elbow were obtained. FINDINGS: Anterior fat pad appears borderline normal in size, no obvious posterior fat pad. Possibility of small joint effusion in considered. No convincing evidence of acute fracture or dislocation. Small spur about the olecranon process of the ulna. Small spur at the tip of the coronoid process of the ulna. Mild spurring of the humeral head. Calcification along the medial epicondylar region of the distal humerus likely degenerative in nature. Vascular calcifications are seen at the humeral level medially, anteriorly. Postoperative clips of the humeral level medially. 4 views of the left knee were obtained. FINDINGS: No definite acute fracture or dislocation. Mild osteopenia. No evidence of sizable suprapatellar joint effusion. Mild soft tissue swelling anteriorly. Vascular calcification is are noted posteriorly. Likely small vascular calcification anteriorly. XR/XR knee LT 4V IMPRESSION: Chest study demonstrates mild atelectatic, fibrotic and/or minimal infiltrative changes on the right as described. Mild COPD suggested. Left elbow study fails to demonstrate definite acute fracture or dislocation. Degenerative changes as noted. Left knee study fails to demonstrate definite acute fracture or dislocation. Mild soft tissue swelling anteriorly. Follow-up as needed. Electronically authenticated by: LB RYAN Date: 10/03/2023 15:07
--- NOTE | 2023-10-03 13:43 | CT_ITS ---
The [address] [address] Patient Name: ROGER KERR MRN: [id number] date: 1950 Sex: M Assigned Patient Location: ER Current Patient Location: ER Accession/Order Number: [id number] Exam Date: 10/03/2023 14:24 Report Date: 10/03/2023 14:55 At the request of: SAYRA GASCA Procedure: CT head/brain wo con EXAMINATION: CT head/brain wo con HISTORY: Dizzy, fall COMPARISON: No relevant comparison available. TECHNIQUE: Axial CT images were obtained without IV contrast. Dose reduction techniques were achieved by using automated exposure control and/or adjustment of mA and/or kV according to patient size and/or use of iterative reconstruction technique. FINDINGS: BRAIN: No edema, hemorrhage, mass, acute infarction, or inappropriate atrophy. CSF SPACES: No hydrocephalus, subarachnoid hemorrhage, or mass. Appropriate for age. SKULL: No fracture, mass, or other significant visible lesion. SINUSES: Small fluid level within right maxillary sinus. Mild mucosal thickening within left sphenoid sinus. ORBITS: No appreciable abnormality on the limited views. OTHER: Negative CT/CT head/brain wo con IMPRESSION: 1. No intracranial hemorrhage. 2. Age consistent atrophy and mild chronic small vessel ischemic changes. 3. No fracture of the calvarium or scalp hematoma. 4. Mild sinusitis, possibly acute sinusitis within right maxillary sinus. Electronically authenticated by: BREANNE WATERMAN Date: 10/03/2023 14:55
--- NOTE | 2023-10-03 13:43 | ECG_ITS ---
The 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
--- NOTE | 2023-10-03 13:43 | XR_ITS ---
The [address] [address] Patient Name: ROGER KERR MRN: [id number] date: 1950 Sex: M Assigned Patient Location: ER Current Patient Location: Accession/Order Number: [id number] Exam Date: 10/03/2023 14:35 Report Date: 10/03/2023 15:07 At the request of: SAYRA GASCA Procedure: XR elbow LT min 3V EXAM: XR chest 1V, XR knee LT 4V, XR elbow LT min 3V HISTORY: Dizzy fell recently COMPARISON: Chest study dated 05/18/2019 TECHNIQUE: PA view of the chest was obtained. FINDINGS: Heart and mediastinal contours are unremarkable in appearance. Mild COPD suggested. Slight patchy and linear densities in the right mid and upper lung field regions, consider atelectatic, fibrotic and/or minimal infiltrative changes. No evidence of consolidation. No obvious pneumothorax. Postoperative clips in the left axillary region. 4 views of the left elbow were obtained. FINDINGS: Anterior fat pad appears borderline normal in size, no obvious posterior fat pad. Possibility of small joint effusion in considered. No convincing evidence of acute fracture or dislocation. Small spur about the olecranon process of the ulna. Small spur at the tip of the coronoid process of the ulna. Mild spurring of the humeral head. Calcification along the medial epicondylar region of the distal humerus likely degenerative in nature. Vascular calcifications are seen at the humeral level medially, anteriorly. Postoperative clips of the humeral level medially. 4 views of the left knee were obtained. FINDINGS: No definite acute fracture or dislocation. Mild osteopenia. No evidence of sizable suprapatellar joint effusion. Mild soft tissue swelling anteriorly. Vascular calcification is are noted posteriorly. Likely small vascular calcification anteriorly. XR/XR elbow LT min 3V IMPRESSION: Chest study demonstrates mild atelectatic, fibrotic and/or minimal infiltrative changes on the right as described. Mild COPD suggested. Left elbow study fails to demonstrate definite acute fracture or dislocation. Degenerative changes as noted. Left knee study fails to demonstrate definite acute fracture or dislocation. Mild soft tissue swelling anteriorly. Follow-up as needed. Electronically authenticated by: LB RYAN Date: 10/03/2023 15:07
--- NOTE | 2023-10-03 13:43 | ED.GENADUL1 ---
HPI HPI - General Adult General Chief complaint: Dizziness Stated complaint: DIZZINESS/LIGHT HEADED Time Seen by Provider: 10/03/23 13:38 Source: patient Mode of arrival: walk-in Limitations: no limitations History of Present Illness HPI narrative: Patient is a 72-year-old male who presents to the emergency department for dizziness that began last night. He states that he dizziness is coming and going, It becomes worse when he moves too fast. He denies headache, visual changes, chest pain or shortness of breath. He states for the last several days he has had sore throat and nasal congestion. No fevers, vomiting. He describes the dizziness as feeling off balance like he is on a boat, no sensation of spinning. No peripheral paresthesias. He states he had 3 falls last night related to the dizziness although he did not hit his head. He complains of pain in the left elbow and left knee. He has a history of kidney transplant 4 years ago, he has a an old AV fistula to the left arm that is not used, he no longer receives dialysis. Related Data Home Medications ?Medication ?Instructions ?Recorded ?Confirmed amiloride 5 mg tablet 5 mg PO DAILY 04/27/23 04/27/23 amlodipine 10 mg tablet 10 mg PO DAILY 04/27/23 04/27/23 atorvastatin 10 mg tablet 10 mg PO .every other day 04/27/23 04/27/23 carvedilol 12.5 mg tablet 12.5 mg PO Q12H 04/27/23 04/27/23 cinacalcet 30 mg tablet 30 mg PO DAILY 04/27/23 04/27/23 furosemide 20 mg tablet 20 mg PO DAILY 04/27/23 04/27/23 lisinopril 20 mg tablet 20 mg PO DAILY 04/27/23 04/27/23 magnesium oxide 400 mg (241.3 mg 800 mg PO TID 04/27/23 04/27/23 magnesium) tablet sildenafil (pulm.hypertension) 20 20 mg PO TID 04/27/23 04/27/23 mg tablet sulfasalazine 500 mg 0.5 g PO Q12H 04/27/23 04/27/23 tablet,delayed release Previous Rx's ?Medication ?Instructions ?Recorded amoxicillin 875 mg tablet 875 mg PO BID #20 tabs 10/03/23 meclizine 25 mg chewable tablet 25 mg PO QID PRN dizziness #12 tabs 10/03/23 (Antivert) ondansetron 4 mg disintegrating 4 mg PO Q6H PRN nausea and 10/03/23 tablet vomiting #12 tabs Allergies Allergy/AdvReac Type Severity Reaction Status Date / Time No Known Drug Allergies Allergy Verified 04/27/23 09:02 Opioid HPI Opioid Management Most Recent Opioid Data: Last Pain Scale 0 04/27/23 18:24 Review of Systems ROS Constitutional Denies: fever or chills Eyes Denies: change in vision Ears, nose, mouth, and throat Reports: throat pain and nasal congestion Cardiovascular Denies: chest pain Respiratory Denies: shortness of breath or cough Gastrointestinal Denies: abdominal pain, nausea or vomiting Musculoskeletal Denies: back pain Integumentary/Breast Denies: rash Neurological Denies: headache Hematologic/Lymphatic Denies: easy bruising or easy bleeding Exam Narrative Exam Narrative: Gen.: Awake, alert, in no distress Head: Normocephalic, atraumatic ENT: Moist mucous membranes, No pharyngeal erythema, left TM is fluid-filled Respiratory: No respiratory distress, lungs clear bilaterally Cardio: Regular rate and rhythm Extremities: Moves extremities equally, Abrasion and ecchymosis in various stages of healing to the left anterior knee and left elbow. No obvious deformity. Old area of ecchymosis to the right elbow. Psych: Normal mood and affect Neuro: No focal neuro deficit Skin: Warm, dry, intact Constitutional Vital Signs, click to edit/add: Last Vital Signs Temp 98.0 F 10/03/23 13:39 Pulse 62 10/03/23 14:20 Resp 17 10/03/23 14:20 BP 126/56 10/03/23 13:39 Pulse Ox 100 10/03/23 14:20 Course Vital Signs Vital signs: Vital Signs Temperature 98.0 F 10/03/23 13:39 Pulse Rate 61 10/03/23 13:39 Respiratory Rate 17 10/03/23 13:39 Blood Pressure 126/56 10/03/23 13:39 Pulse Oximetry 97 10/03/23 13:39 Temperature 98.0 F 10/03/23 13:39 Pulse Rate 62 10/03/23 14:20 Respiratory Rate 17 10/03/23 14:20 Blood Pressure 126/56 10/03/23 13:39 Pulse Oximetry 100 10/03/23 14:20 Medical Decision Making MDM Narrative Medical decision making narrative: Patient sent for CT of the brain which shows right maxillary sinusitis, x-rays of the chest and elbow and knee are unremarkable. Lab studies are grossly stable, lactic acid was elevated. Patient prefers outpatient Treatment. He will be placed on an antibiotic for sinusitis as well as nausea medication to follow-up with PCP. Antivert given for dizziness. Return to the emergency department if symptoms change or worsen. Patient was given IV fluids in the ER. Medical Records Medical records reviewed: Yes I reviewed the patient's medical records Lab Data Lab results reviewed: Yes I reviewed the patient's lab results Labs: Lab Results 10/03/23 10/03/23 Range/Units 13:48 14:12 WBC 10.1 (4.0-11.0) 10^3/uL RBC 3.94 L (4.70-6.10) 10^6/uL Hgb 11.3 L (14.0-18.0) g/dL Hct 36.5 L (42.0-54.0) % MCV 92.6 (80.0-94.0) fL MCH 28.7 (25.9-34.0) pg MCHC 31.0 (29.9-35.2) g/dL RDW 14.2 (11.0-15.0) % Plt Count 203 (150-450) 10^3/uL MPV 9.1 L (9.5-13.5) fL Neut % (Auto) 70.4 (43.0-75.0) % Lymph % (Auto) 12.7 L (20.5-60.0) % [place] % (Auto) 16.3 H (1.7-12.0) % Eos % (Auto) 0.0 L (0.9-7.0) % Baso % (Auto) 0.2 (0.2-2.0) % Neut # (Auto) 7.1 H (1.4-6.5) 10^3/uL Lymph # (Auto) 1.3 (1.2-3.8) 10^3/uL [place] # (Auto) 1.6 H (0.3-0.8) 10^3/uL Eos # (Auto) 0.0 (0.0-0.7) 10^3/uL Baso # (Auto) 0.0 (0.0-0.1) 10^3/uL Abs Immat Gran (auto) 0.04 H (0.00-0.03) 10^3/uL Imm/Tot Granulo (auto) 0.4 (0.0-0.5) % Sodium 129 L (136-145) mmol/L Potassium 3.9 (3.5-5.1) mmol/L Chloride 94 L (98-107) mmol/L Carbon Dioxide 22.3 (21.0-32.0) mmol/L Anion Gap 16.6 BUN 24.0 H (7.0-18.0) mg/dL Creatinine 1.34 H (0.70-1.30) mg/dL Est GFR ( Amer) >60 (>=60) Est GFR (Non-Af Amer) 53 L (>=60) BUN/Creatinine Ratio 17.9 Glucose 105 (74-106) mg/dL Lactate 3.1 H* (0.4-2.0) mmol/L Calcium 9.4 (8.5-10.1) mg/dL Total Bilirubin 0.6 (0.2-1.0) mg/dL AST 41 H (15-37) U/L ALT 32 (16-63) U/L Alkaline Phosphatase 87 (46-116) U/L Troponin I High Sens 35.3 (4.0-76.1) pg/mL Total Protein 7.5 (6.4-8.2) g/dL Albumin 3.7 (3.4-5.0) g/dL Globulin 3.8 g/dL Albumin/Globulin Ratio 1.0 TSH 2.414 (0.358-3.740) uIU/mL Urine Color Yellow (YELLOW) Urine Clarity Clear (CLEAR) Urine pH 6.0 (5.0-9.0) Ur Specific [place] 1.025 (1.005-1.025) Urine Protein Negative (NEG/TRACE) mg/dL Urine Glucose (UA) Negative (NEGATIVE) mg/dL Urine Ketones Negative (NEGATIVE) mg/dL Urine Occult Blood Negative (NEGATIVE) Urine Nitrite Negative (NEGATIVE) Urine Bilirubin Negative (NEGATIVE) Urine Urobilinogen 0.2 (0.2-1.0) EU/dL Ur Leukocyte Esterase Negative (NEGATIVE) Imaging Data CT scan - head: Attestation: I have reviewed the pertinent imaging results. Radiologist's impression: ITS Impressions Elbow X-Ray 10/03/23 13:43 IMPRESSION: Chest study demonstrates mild atelectatic, fibrotic and/or minimal infiltrative changes on the right as described. Mild COPD suggested. Left elbow study fails to demonstrate definite acute fracture or dislocation. Degenerative changes as noted. Left knee study fails to demonstrate definite acute fracture or dislocation. Mild soft tissue swelling anteriorly. Follow-up as needed. Electronically authenticated by: LB RYAN Date: 10/03/2023 15:[address] 10/03/23 13:43 IMPRESSION: 1. No intracranial hemorrhage. 2. Age consistent atrophy and mild chronic small vessel ischemic changes. 3. No fracture of the calvarium or scalp hematoma. 4. Mild sinusitis, possibly acute sinusitis within right maxillary sinus. Electronically authenticated by: BREANNE WATERMAN Date: 10/03/2023 14:55 Knee X-Ray 10/03/23 13:43 IMPRESSION: Chest study demonstrates mild atelectatic, fibrotic and/or minimal infiltrative changes on the right as described. Mild COPD suggested. Left elbow study fails to demonstrate definite acute fracture or dislocation. Degenerative changes as noted. Left knee study fails to demonstrate definite acute fracture or dislocation. Mild soft tissue swelling anteriorly. Follow-up as needed. Electronically authenticated by: LB RYAN Date: 10/03/2023 15:07 Chest X-Ray 10/03/23 14:20 IMPRESSION: Chest study demonstrates mild atelectatic, fibrotic and/or minimal infiltrative changes on the right as described. Mild COPD suggested. Left elbow study fails to demonstrate definite acute fracture or dislocation. Degenerative changes as noted. Left knee study fails to demonstrate definite acute fracture or dislocation. Mild soft tissue swelling anteriorly. Follow-up as needed. Electronically authenticated by: LB RYAN Date: 10/03/2023 15:07 ECG Data Attestation: I personally reviewed and interpreted this ECG as follows: (Normal sinus rhythm at a rate of 58, no acute ST elevation or ectopy. EKG reviewed by attending physician.) Discharge Plan Discharge Stand Alone Forms: Portal Instructions Chief Complaint: Dizziness Clinical Impression: Dizziness, Sinusitis Patient Disposition: Home, Self-Care Time of Disposition Decision: 15:33 Condition: Good Prescriptions / Home Meds: New meclizine [Antivert] 25 mg tablet,chewable 25 mg PO QID PRN (Reason: dizziness) Qty: 12 0RF amoxicillin 875 mg tablet 875 mg PO BID Qty: 20 0RF ondansetron 4 mg tablet,disintegrating 4 mg PO Q6H PRN (Reason: nausea and vomiting) Qty: 12 0RF No Action amiloride 5 mg tablet 5 mg PO DAILY cinacalcet 30 mg tablet 30 mg PO DAILY amlodipine 10 mg tablet 10 mg PO DAILY atorvastatin 10 mg tablet 10 mg PO .every other day carvedilol 12.5 mg tablet 12.5 mg PO Q12H furosemide 20 mg tablet 20 mg PO DAILY lisinopril 20 mg tablet 20 mg PO DAILY magnesium oxide 400 mg (241.3 mg magnesium) tablet 800 mg PO TID sildenafil (pulm.hypertension) 20 mg tablet 20 mg PO TID sulfasalazine 500 mg tablet,delayed release (DR/EC) 0.5 g PO Q12H Print Language: [place] Instructions: Sinusitis (ED), Dizziness (ED) Referrals: Jericho Centeno MD [Primary Care Provider] - 1 week
[2023-10-03 13:50] VITALS: PULSE 59
[2023-10-03 14:00] VITALS: PULSE 64; O2SAT 100
[2023-10-03] MEDS: 0.9 % SODIUM CHLORIDE 1,000 ML 1000 ML IV (14:17)
[2023-10-03] MEDS: ONDANSETRON PF 4 MG/2 ML VIAL IV (14:18)
[2023-10-03 14:20] VITALS: PULSE 62; O2SAT 100
--- NOTE | 2023-10-03 14:20 | XR_ITS ---
The [address] [address] Patient Name: ROGER KERR MRN: [id number] date: 1950 Sex: M Assigned Patient Location: ER Current Patient Location: Accession/Order Number: [id number] Exam Date: 10/03/2023 14:35 Report Date: 10/03/2023 15:07 At the request of: SAYRA GASCA Procedure: XR chest 1V EXAM: XR chest 1V, XR knee LT 4V, XR elbow LT min 3V HISTORY: Dizzy fell recently COMPARISON: Chest study dated 05/18/2019 TECHNIQUE: PA view of the chest was obtained. FINDINGS: Heart and mediastinal contours are unremarkable in appearance. Mild COPD suggested. Slight patchy and linear densities in the right mid and upper lung field regions, consider atelectatic, fibrotic and/or minimal infiltrative changes. No evidence of consolidation. No obvious pneumothorax. Postoperative clips in the left axillary region. 4 views of the left elbow were obtained. FINDINGS: Anterior fat pad appears borderline normal in size, no obvious posterior fat pad. Possibility of small joint effusion in considered. No convincing evidence of acute fracture or dislocation. Small spur about the olecranon process of the ulna. Small spur at the tip of the coronoid process of the ulna. Mild spurring of the humeral head. Calcification along the medial epicondylar region of the distal humerus likely degenerative in nature. Vascular calcifications are seen at the humeral level medially, anteriorly. Postoperative clips of the humeral level medially. 4 views of the left knee were obtained. FINDINGS: No definite acute fracture or dislocation. Mild osteopenia. No evidence of sizable suprapatellar joint effusion. Mild soft tissue swelling anteriorly. Vascular calcification is are noted posteriorly. Likely small vascular calcification anteriorly. XR/XR chest 1V IMPRESSION: Chest study demonstrates mild atelectatic, fibrotic and/or minimal infiltrative changes on the right as described. Mild COPD suggested. Left elbow study fails to demonstrate definite acute fracture or dislocation. Degenerative changes as noted. Left knee study fails to demonstrate definite acute fracture or dislocation. Mild soft tissue swelling anteriorly. Follow-up as needed. Electronically authenticated by: LB RYAN Date: 10/03/2023 15:07
[2023-10-03 14:25] LABS: Basophils Percent Auto 0.2 % (0.2-2.0); Hematocrit 36.5 % (42.0-54.0); Hemoglobin 11.3 g/dL (14.0-18.0); Immature Granulocytes Abs Auto 0.04 10^3/uL (0.00-0.03); Immature Granulocytes Pct Auto 0.4 % (0.0-0.5); Lymphocytes Absolute Auto 1.3 10^3/uL (1.2-3.8); Lymphocytes Percent Auto 12.7 % (20.5-60.0); Mean Corpuscular Hemoglobin 28.7 pg (25.9-34.0); Mean Corpuscular Volume 92.6 fL (80.0-94.0); Mean Platelet Volume 9.1 fL (9.5-13.5); Monocytes Absolute Auto 1.6 10^3/uL (0.3-0.8); Monocytes Percent Auto 16.3 % (1.7-12.0); Neutrophils Absolute Auto 7.1 10^3/uL (1.4-6.5); Neutrophils Percent Auto 70.4 % (43.0-75.0); Platelet Count 203 10^3/uL (150-450); Red Blood Count 3.94 10^6/uL (4.70-6.10); Red Cell Distribution Width 14.2 % (11.0-15.0); White Blood Count 10.1 10^3/uL (4.0-11.0)
[2023-10-03 14:27] LABS: Bilirubin Urine NEGATIVE (NEGATIVE); Blood Urine NEGATIVE (NEGATIVE); Clarity Urine CLEAR (CLEAR); Color Urine YELLOW (YELLOW); Glucose Urine UA NEGATIVE (NEGATIVE); Ketones Urine NEGATIVE (NEGATIVE); Leukocyte Esterase Urine NEGATIVE (NEGATIVE); Nitrite Urine NEGATIVE (NEGATIVE); Protein Urine NEGATIVE (NEG/TRACE); Specific Gravity Urine 1.025 (1.005-1.025); Urobilinogen Urine 0.2 EU/dL (0.2-1.0)
[2023-10-03 14:31] LABS: Urine Microscopic Indicated NO
[2023-10-03 14:54] LABS: Alanine Aminotransferase 32 U/L (16-63); Albumin Level 3.7 g/dL (3.4-5.0); Alkaline Phosphatase 87 U/L (46-116); Anion Gap 16.6; Aspartate Amino Transferase 41 U/L (15-37); BUN Creatinine Ratio 17.9; Bilirubin Total 0.6 mg/dL (0.2-1.0); Calcium 9.4 mg/dL (8.5-10.1); Carbon Dioxide 22.3 mmol/L (21.0-32.0); Chloride 94 mmol/L (98-107); Estimated GFR (African America >60 (>=60); Estimated GFR (Non-African Ame 53 (>=60); Globulin 3.8 g/dL; Glucose 105 mg/dL (74-106); Potassium 3.9 mmol/L (3.5-5.1); Sodium 129 mmol/L (136-145); Thyroid Stimulating Hormone 2.414 uIU/mL (0.358-3.740); Total Protein 7.5 g/dL (6.4-8.2); Troponin I High Sensitivity 35.3 pg/mL (4.0-76.1)
[2023-10-03 15:00] LABS: Lactate/Lactic Acid 3.1 mmol/L (0.4-2.0)
[2023-10-03 16:06] VITALS: BP 148/60; PULSE 64; TEMP 37.6; O2SAT 99
== END 2023-10-03 16:13 | disposition home or self-care (01) ==
PROVIDERS: Physician Assistant; Emergency Provider Emergency Medicine; PCP Family Medicine
DX: R42 Dizziness and giddiness (principal); J32.0 Chronic maxillary sinusitis; Z94.0 Kidney transplant status; Z91.81 History of falling; Z79.899 Other long term (current) drug therapy
CPT/HCPCS: 36415; 70450; 71045; 73080; 73564; 80053; 81003; 83605; 84443; 84484; 85025; 87811; 87880; 93005; 96361; 96374; 99285

== ENCOUNTER 2023-10-30 06:56 | Outpatient (OUT) | payer MEDICARE, OTHER, SELFPAY ==
--- OUTSIDE RECORDS SUMMARY | 2023-10-30 07:02 | XMS_ITS ---
Patient Summarization (C-CDA 2.1 CCD) Created on: October 30, 2023 ROGER SUAREZ : 1950 Sex: Male Author Organization Sample organization Care Team Providers Care Home Aid Name Role Phone Tj Wells Unavailable MD Jericho Mccarthy Primary Care Provider [phone] MD Tj Wells Attending Provider [phone] Tj Wells Attending Unavailabl e NadereJericho sullivan Primary Care Unavailable Tj Wells Admitting Unavailabl e Maira, Tj Sullivan Admitting Unavailabl e Tj Wells Attending Unavailabl e Jericho Mccarthy Primary Care Unavailable MISC, DR ALVAREZ Attending Unavailable MISC, DR ALVAREZ Admitting Unavailable MISC, DR ALVAREZ Consulting Unavailable NADERER, DR FERGUSON A Primary Care Unavailable TUNICA-BILOXI, DR MERRITT Consulting Unavailable TUNICA-BILOXI, DR MERRITT Attending Unavailable TUNICA-BILOXI, DR MERRITT Admitting Unavailable NADERER, DR FERGUSON A Primary Care Unavailable MISC, DR ALVAREZ Attending Unavailable MISC, DR ALVAREZ Admitting Unavailable NADERER, DR FERGUSON A Primary Care Unavailable MISC, DR ALVAREZ Consulting Unavailable TUNICA-BILOXI, DR MERRITT Consulting Unavailable TUNICA-BILOXI, DR MERRITT Attending Unavailable NADERER, DR FERGUSON A Primary Care Unavailable TUNICA-BILOXI, DR MERRITT Admitting Unavailable MISC, DR ALVAREZ [...] NADERER, DR JERICHO Floyd Primary Care Unavailable HAY ., DR WINTERS Consulting Unavailable HAY ., DR WINTERS Attending Unavailable HAY ., DR WINTERS Admitting Unavailable MISC, DR ALVAREZ Admitting Unavailable MISC, DR ALVAREZ Consulting Unavailable NADERENate, DR JERICHO Floyd Primary Care Unavailable MISC, DR ALVAREZ Attending Unavailable MISC, DR ALVAREZ Attending Unavailable MISC, DR ALVAREZ Admitting Unavailable MISC, DR ALVAREZ Consulting Unavailable NADHAROON, DR JERICHO Floyd Primary Care Unavailable HORANI, ESTHER Referring Unavailable KATKO, MENDY Referring Unavailable CHRISTIAN, GYPSY Admitting Unavailable HORANI, ESTHER Attending Unavailable MERZA, NOORALDIN Referring Unavailable MERZA, NOORALDIN Referring Unavailable AKRAMYESHA, PRICE Attending Unavailable PADMINI, BENJA Attending Unavailable MARIO EGAN Attending Unavailable NAKUL, JERICHO Attending Unavailable NAKUL, JERICHO Attending Unavailable FABIO, JERICHO Attending Unavailable FABIO, JERICHO Attending Unavailable Allergies Allergy Classification Reported Allergen(s) Allergy Type Date of Onset Reaction(s) Facility (1 source) NSAIDs; Translations: [NSAIDS (NON-STEROIDAL ANTI-INFLAMMATOR Y DRUG)] Propensity to adverse reactions to drug (disorder) 2 [facility] Encounters Encounter Date Encounter Type Care Provider Facility Start: 08-25-2023 End: 08-25-2023 ambulatory JERICHO MCCARTHY Not Available Start: 07-09-2023 End: 07-09-2023 ambulatory PRICE MENDEZ [facility] Start: 05-22-2023 End: 05-22-2023 ambulatory JERICHO MCCARTHY Not Available Start: 05-19-2023 End: 05-19-2023 ambulatory JERICHO ABAD [facility] Start: 04-28-2023 Evaluation and management of inpatient ESTHER HORANI [facility] Start: 04-28-2023 Evaluation and management of inpatient NOORALDIN MERZA [facility] Start: 04-28-2023 End: 04-30-2023 Evaluation and management of inpatient MENDY BLUEKO [facility] Start: 04-22-2023 End: 04-22-2023 ambulatory BENJA MCGHEE [facility] Start: 11-11-2022 End: 11-11-2022 ambulatory JERICHO ABAD [facility] Start: 10-04-2022 End: 10-04-2022 ambulatory MARIO EGAN [facility] Start: 10-03-2022 End: 10-04-[address] DOCTOR MCCABE Facility:[facility] Start: 08-30-2022 End: 08-31-[address] ALVAREZ MISC Facility:[facility] Start: 08-01-2022 End: 08-02-[address] ALVAREZ MISC Facility:[facility] Start: 07-04-2022 End: 07-05-[address] ALVAREZ MISC Facility:[facility] Start: 05-23-2022 End: 05-24-[address] ALVAREZ MISC Facility:[facility] Start: 04-30-2022 End: 05-01-[address] ALVAREZ MISC Facility:[facility] Start: 04-03-2022 End: 04-04-[address] ALVAREZ MISC Facility:[facility] Start: 03-08-2022 End: 03-09-[address] NAGA BOSCH Facility:[facility] Start: 03-05-2022 End: 03-05-2022 ambulatory Tj Wells Facility:[facility] Start: 03-05-2022 End: 03-05-2022 Admission to same day surgery center MD Jericho Mccarthy Work Phone: [facility] Start: 03-05-2022 End: 03-05-2022 ambulatory MD Jericho Mccarthy Work Phone: [facility] Work Phone: Start: 03-01-2022 End: 03-01-2022 ambulatory Tj Wells Facility:[facility] Start: 03-01-2022 End: 03-01-2022 ambulatory MD Jericho Mccarthy Work Phone: [facility] Work Phone: Start: 03-01-2022 End: 03-01-2022 Patient encounter procedure MD Jericho Mccarthy Work Phone: [facility] Start: 02-01-2022 End: 02-02-[address] DOCTOR MCCABE Facility:[facility] Start: 01-21-2022 End: 01-21-2022 ambulatory Tj Wells Other [facility] Other Start: 01-21-2022 Office outpatient ne w 45 minutes Tj Wells [facility] Start: 01-04-2022 End: 01-05-[address] NAGA BOSCH Facility:[facility] Start: 11-30-2021 End: 12-01-[address] DOCTOR MCCABE Facility:[facility] Start: 11-14-2021 End: 11-14-[address] JERICHO MCCARTHY Facility:[facility] Medical Equipment Procedure Code Equipment Code Equipment Original Text Equipment Identifier Dates Creation or revision of arteriovenous fistula GRAFT ARTEGRAFT 6MM X 40CM FDA Start: 01-14-2017 Creation or revision of arteriovenous fistula GRAFT ARTEGRAFT 6MM X 40CM FDA Start: 01-14-2017 Goals Date Patient Goal Desired Activity /State Immunizations Immunization Date Immunization Notes Care Provider Fa cili 04-30-2021 COVID-19 mRNA Bivale nt Booster (Pfizer) MD Jericho Mccarthy Work Phone: [facility] 08-01-2020 COVID-19 mRNA Comirnaty (Pfizer) MD Jericho Mccarthy Work Phone: [facility] 07-12-2020 COVID-19 mRNA Comirnaty (Pfizer) MD Jericho Mccarthy Work Phone: [facility] 02-13-2017 influenza, seasonal, injectable Tj Wells Other [facility] Other 06-27-2016 influenza, seasonal, injectable Tj Wells Other [facility] Other 02-01-2016 pneumococcal polysaccharide vaccine, 23 valent Tj Wells Other [facility] Other Medications Current Medications Medication Drug Class(es) Dates [...] 2 MCG IVP MWF DURING DIALYSIS PER [facility] (08/26/18) 5 ml sodium ferric gluconate complex 12.5 mg/ml injection (2 sources) Start: 07-08-2017 End: 03-05-2022 Sodium Ferric Gluconat-Sucrose (Ferrlecit) 62.5 mg/5 mL Solution Discontinued 125 MG IV Q14D July 08, 2017 1:00am March 05, 2022 7:07am RECEIVES FERRLECIT 125MG IVP EVERY OTHER FRIDAY (DOSE DUE 08/26/18 PER [facility]) Payers Date Payer Category Payer Private Health Insurance [id number] 2022 Self-pay [id number] 2022 Unknown [id number] 1958 Medicare [id number] 2.1 [id number] 1959 Private Health Insurance [id number] 1950 Unknown [id number] .16.84 [id number] 1950 Unknown [id number] 2.16.84 0.1.640527.3.579.2.593 1950 Unknown [id number] 2.16.84 0.1.701783.3.579.2.593 1950 Unknown [id number] 2.16.84 0.1.590694.3.579.2.593 1950 Unknown [id number] 2.16.84 0.1.070001.3.579.2.593 1950 Unknown [id number] 2.16.84 0.1.647007.3.579.2.593 1950 Unknown [id number] 2.16.84 0.1.735338.3.579.2.593 1950 Unknown [id number] 2.16.84 0.1.369517.3.579.2.593 1950 Unknown [id number] 2.16.84 0.1.895704.3.579.2.593 1950 Unknown [id number] 2.16.84 0.1.902499.3.579.2.593 1950 Unknown [id number] 2.16.84 0.1.239397.3.579.2.593 1950 Unknown [id number] 2.16.84 0.1.612176.3.579.2.593 1950 Unknown [id number] 2.16.84 0.1.501690.3.579.2.1259 1950 Unknown [id number] 2.16.84 0.1.193673.3.579.2.1259 Unknown [id number] 2.16.8 40.1.254766.3.579.2.531 Unknown [id number] 2.16.8 [id number] Plan of Treatment Date Care Activity Detail Author Start: 03-05-2022 [facility] Patient Education Colitis [facility] Work Phone: Problems Active Problems Problem Classification Problem Date [...] disease (2 sources) Atherosclerotic heart disease of [place] coronary artery without angina pectoris; Translations: [Atherosclerotic heart disease of [place] coronary artery without angina pectoris] Onset: 04-22-20 [...] for aftercare following other organ transplant; Translations: [[facility] 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 Other aftercare [...] helper termite (current) drug therapy; Translations: [OTH LONG-TERM CURRENT DRUG THERAPY] Onset: 03-10-2022 Episodic Other [...] of other genitourinary organs] Onset: 03-10-2022 Episodic Procedures Date Procedure Procedure Detail Performing Clinician Start: 03-05-2022 Colonoscopy MD Jericho summers Work Phone: Start: 01-07-2019 Echocardiography Start: 11-19-2018 Echocardiography SARS Antigen (LFIA) MD Jericho Mccarthy Work Phone: Results Test Name Value Interpretation Reference Range Facility BILIRUBIN, DIRECTon 07-09-19 Magnesium [Mass/Vol] 0.2 mg/dL Normal 0-0.2 [facility] Comment on above: Performed By: #### L [id number] #### [facility] [address] [place] [address] CBC WITH AUTO DIFFERENTIALon 07-09-2023 Basophils (Bld) [#/Vol] 0.03 10*3/uL Normal 0.00-0.20 [facility] Comment on above: Performed By: #### L [id number] #### [facility] ([facility]) [address] [place] [address] Basophils/100 WBC (Bld) 0.4 % Normal 0.0-1.0 [facility] Comment on above: Performed By: #### L [id number] #### [facility] ([facility]) [address] [place] [address] Eosinophils (Bld) [#/Vol] 0.16 10*3/uL Normal 0.00-0.50 [facility] Comment on above: Performed By: #### L [id number] #### [facility] ([facility]) [address] [place] [address] Eosinophils/100 WBC (Bld) 1.9 % Normal 0.0-6.0 [facility] Comment on above: Performed By: #### L [id number] #### [facility] [address] [place] [address] Erythrocyte distribution width (RBC) [Ratio] 14.0 % Normal 11.5-15.0 [facility] Comment on above: Performed By: #### L [id number] #### [facility] [address] [place] [address] ERYTHROCYTE MEAN CORPUSCULAR HEMOGLOBIN CONCENTRATION (G/DL) BY AUTOMATED 34.4 g/dL Normal 32.0-35.0 [facility] Comment on above: Performed By: #### L [id number] #### [facility] ([facility]) [address] [place] [address] Hematocrit (Bld) [Volume fraction] 32.3 % Low 39.0-55.0 [facility] Comment on above: Performed By: #### L [id number] #### [facility] ([facility]) [address] [place] [address] Hemoglobin (Bld) [Mass/Vol] 11.1 g/dL Low 13.0-17.0 [facility] Comment on above: Performed By: #### L [id number] #### [facility] ([facility]) [address] [place] [address] Immature granulocytes (Bld) [#/Vol] 0.05 10*3/uL Normal 0.00-0.20 [facility] Comment on above: Performed By: #### L [id number] #### [facility] ([facility]) [address] [place] [address] Immature granulocytes/100 WBC (Bld) 0.6 % Normal 0.0-1.0 [facility] Comment on above: Performed By: #### L [id number] #### [facility] ([facility]) [address] [place] [address] Lymphocytes (Bld) [#/Vol] 1.08 10*3/uL Low 1.20-4.00 [facility] Comment on above: Performed By: #### L [id number] #### [facility] ([facility]) [address] [place] [address] Lymphocytes/100 WBC (Bld) 12.7 % Low 20.0-45.0 [facility] Comment on above: Performed By: #### L [id number] #### [facility] [address] [place] [address] MCH (RBC) [Entitic mass] 30.0 pg Normal 27.0-33.0 [facility] Comment on above: Performed By: #### L [id number] #### [facility] ([facility]) [address] [place] [address] MCV (RBC) [Entitic vol] 87.3 fL Normal 82.0-98.0 [facility] Comment on above: Performed By: #### L [id number] #### [facility] ([facility]) [address] [place] [address] Monocytes (Bld) [#/Vol] 0.67 10*3/uL Normal 0.10-1.00 [facility] Comment on above: Performed By: #### L [id number] #### [facility] ([facility]) [address] [place] [address] Monocytes/100 WBC (Bld) 7.9 % Normal 5.0-12.0 [facility] Comment on above: Performed By: #### L [id number] #### [facility] ([facility]) [address] [place] [address] Neutrophils (Bld) [#/Vol] 6.49 10*3/uL Normal 1.60-7.60 [facility] Comment on above: Performed By: #### L [id number] #### [facility] ([facility]) [address] [place] [address] Neutrophils/100 WBC (Bld) 76.5 % High 40.0-72.0 [facility] Comment on above: Performed By: #### L [id number] #### [facility] ([facility]) [address] [place] [address] NRBC (PER 100 WBCS) BY AUTOMATED COUNT 0.0 % Normal 0 [facility] Comment on above: Performed By: #### L [id number] #### [facility] ([facility]) [address] [place] [address] PLATELETS (10*3/UL) IN BLOOD AUTOMATED COUNT 271 10*3/uL Normal 150-400 [facility] Comment on above: Performed By: #### L [id number] #### [facility] [address] [place] [address] RBC (Bld) [#/Vol] 3.70 10*6/uL Low 4.20-5.70 [facility] Comment on above: Performed By: #### L [id number] #### [facility] ([facility]) [address] [place] [address] WBC (Bld) [#/Vol] 8.48 10*3/uL Normal 4.00-10.60 [facility] Comment on above: Performed By: #### L [id number] #### [facility] ([facility]) [address] [place] [address] COMPREHENSIVE METABOLIC PANE Claudio 07-09-2023 Albumin [Mass/Vol] 4.4 g/dL Normal 3.5-5.7 [facility] Comment on above: Performed By: #### L [id number] #### [facility] ([facility]) [address] [place] [address] ALP [Catalytic activity/Vol] 82 U/L Normal 34-104 [facility] Comment on above: Performed By: #### L [id number] #### [facility] ([facility]) [address] [place] [address] ALT [Catalytic activity/Vol] 9 U/L Normal 7-52 [facility] Comment on above: Performed By: #### L [id number] #### [facility] ([facility]) [address] [place] [address] Anion gap [Moles/Vol] 15 mmol/L Normal 7-20 [facility] Comment on above: Performed By: #### L [id number] #### [facility]) [address] [place] [address] AST [Catalytic activity/Vol] 14 U/L Normal 13-39 [facility] Comment on above: Performed By: #### L [id number] #### [facility] ([facility]) [address] [place] [address] Bilirubin [Mass/Vol] 0.5 mg/dL Normal 0.3-1.0 [facility] Comment on above: Performed By: #### L [id number] #### [facility] ([facility]) [address] [place] [address] Calcium [Mass/Vol] 9.1 mg/dL Normal 8.6-10.3 [facility] Comment on above: Performed By: #### L [id number] #### [facility] ([facility]) [address] [place] [address] Chloride [Moles/Vol] 93 mmol/L Low 98-107 [facility] Comment on above: Performed By: #### L [id number] #### [facility] ([facility]) [address] [place] [address] CO2 [Moles/Vol] 22 mmol/L Normal 21-31 [facility] Comment on above: Performed By: #### L [id number] #### [facility] ([facility]) [address] [place] [address] Creatinine [Mass/Vol] 1.01 mg/dL Normal 0.70-1.30 [facility] Comment on above: Performed By: #### L [id number] #### [facility] ([facility]) [address] [place] [address] GLOMERULAR FILTRATION RATE ML/MIN/1.73 SQ M.PREDICTED 79.5 mL/min/1.73m*2 Normal >60.[address] [facility] Comment on above: Result Comment: [facility]???s estimated glomerular filtration rate (eGFR) will [...] group of individuals. Performed By: #### L [id number] #### [facility] ([facility]) [address] [place] [address] Glucose [Mass/Vol] 86 mg/dL Normal 70-100 [facility] Comment on above: Performed By: #### L [id number] #### [facility] ([facility]) [address] [place] [address] Potassium [Moles/Vol] 5.2 mmol/L High 3.5-5.1 [facility] Comment on above: Performed By: #### L [id number] #### [facility] ([facility]) [address] [place] [address] Protein [Mass/Vol] 6.8 g/dL Normal 6.0-8.3 [facility] Comment on above: Performed By: #### L [id number] #### [facility] ([facility]) [address] [place] [address] Sodium [Moles/Vol] 125 mmol/L Low 136-145 [facility] Comment on above: Performed By: #### L [id number] #### [facility] ([facility]) [address] [place] [address] Urea nitrogen [Mass/Vol] 17 mg/dL Normal 7-25 [facility] Comment on above: Performed By: #### L [id number] #### [facility] ([facility]) [address] [place] [address] UREA NITROGEN/CREATININE (MASS RATIO) IN SER/PLAS 16.8 Normal [facility] Comment on above: Performed By: #### L [id number] #### [facility] ([facility]) [address] [place] [address] Follow-Upon 07-09-2023 Follow-Up [id number] Roger Suarez 1950 M Date Provider Department Center 07/09/2023 PRICE CHRISTENSEN None Family History Problem Relation Age of Onset Diabetes Mother Hypertension Mother Coronary artery disease Mother Other Mother Cystic kidney disease Mother Hypertension Father Skin cancer Father Cystic kidney disease Father Cystic kidney disease Sister Heart disease Brother ALS Brother Cystic kidney disease Brother Family Status - Relation Status Age at Mother Father Sister Brother Level of Service:50210 [place] OFFICE/OUTPATIENT ESTABLISHED LOW MDM 20 MIN Reason for Visit and Comments: Kidney Follow-up [] - Patient has no major concerns today Normal [facility] HEMOGLOBIN A1Con 07-09-2023 Glucose [Mass/Vol] 160 mg/dL Normal [facility] Comment on above: Performed By: #### L [id number] ####[facility] ([facility])[address] [place] [address] HbA1c (Bld) [Mass fraction] 7.2 % High 4.0-6.0 [facility] Comment on above: Performed By: #### L [id number] ####[facility] ([facility])[address] [place] [address] Labon 07-09-2023 Lab [id number] Roger Suarez 1950 M Date Provider Department [place] 07/09/2023 [id number] DRAW STATION KXT Draw [facility] Family History Problem Relation Age of Onset Diabetes Mother Hypertension Mother Coronary artery disease Mother Other Mother Cystic kidney disease Mother Hypertension Father Skin cancer Father Cystic kidney disease Father Cystic kidney disease Sister Heart disease Brother ALS Brother Cystic kidney disease Brother Family Status - Relation Status Age at Mother Father Sister Brother Normal [facility] MAGNESIUMon 07-09-2023 Magnesium [Mass/Vol] 1.5 mg/dL Low 1.9-2.7 [facility] Comment on above: Performed By: #### L [id number] ####[facility] ([facility])[address] [place] [address] OSMOLALITYon 07-09-2023 OSMOLALITY MEASURED 272 mOsm/kg Low 275-295 [facility] Comment on above: Result Comment: Test Performed by [employer] [address] [place] [address] - Released 07/09/2023 16:01 Performed By: #### L [id number] #### [facility] ([facility]) [address] [place] [address] Orders Onlyon 07-09-2023 Orders Only [id number] Roger Suarez 1950 M Date Provider Department Center 07/09/2023 StephanieChrisLAQUITA COURTNEY IDA None Family History Problem Relation Age of Onset Diabetes Mother Hypertension Mother Coronary artery disease Mother Other Mother Cystic kidney disease Mother Hypertension Father Skin cancer Father Cystic kidney disease Father Cystic kidney disease Sister Heart disease Brother ALS Brother Cystic kidney disease Brother Family Status - Relation Status Age at Mother Father Sister Brother Normal [facility] PHOSPHORUSon 07-09-2023 Magnesium [Mass/Vol] 4.6 mg/dL Normal 2.5-5.0 [facility] Comment on above: Performed By: #### L [id number] #### [facility] ([facility]) [address] [place] [address] TACROLIMUS LEVELon Tacrolimus (Bld) [Mass/Vol] 4.3 ng/mL Low 5.0-20.0 [facility] Comment on above: Result Comment: The [employer] Tacrolimus assay is a delayed one-step immunoassay for the quantitative determination of tacrolimus in human whole blood using the chemiluminescent microparticle immunoassay (CMIA) technology with flexible assay protocols, referred to as Chemiflex. Performed By: #### L [id number] #### [facility] ([facility]) [address] [place] [address] URIC ACIDon 07-09-2023 Magnesium [Mass/Vol] 6.2 mg/dL Normal 4.4-7.6 [facility] Comment on above: Performed By: #### L [id number] #### [facility] ([facility]) [address] [place] [address] Orders Onlyon 06-11-2023 Orders Only [id number] Roger Suarez 1950 M Date Provider Department Center 06/11/2023 Shaylee-JERICHO ABAD [facility] Family History Problem Relation Age of Onset Diabetes Mother Hypertension Mother Coronary artery disease Mother Other Mother Cystic kidney disease Mother Hypertension Father Skin cancer Father Cystic kidney disease Father Cystic kidney disease Sister Heart disease Brother ALS Brother Cystic kidney disease Brother Family Status - Relation Status Age at Mother Father Sister Brother Normal [facility] BILIRUBIN, DIRECTon 05-19-19 Magnesium [Mass/Vol] 0.1 mg/dL Normal 0-0.2 [facility] Comment on above: Performed By: #### L [id number] #### [facility] [address] [place] [address] CBC WITH AUTO DIFFERENTIALon 05-19-2023 Basophils (Bld) [#/Vol] 0.03 10*3/uL Normal 0.00-0.20 [facility] Comment on above: Performed By: #### L [id number] #### [facility] [address] [place] [address] Basophils/100 WBC (Bld) 0.4 % Normal 0.0-1.0 [facility] Comment on above: Performed By: #### L [id number] #### [facility] [address] [place] [address] Eosinophils (Bld) [#/Vol] 0.18 10*3/uL Normal 0.00-0.50 [facility] Comment on above: Performed By: #### L [id number] #### [facility] [address] [place] [address] Eosinophils/100 WBC (Bld) 2.7 % Normal 0.0-6.0 [facility] Comment on above: Performed By: #### L [id number] #### [facility] [address] [place] [address] Erythrocyte distribution width (RBC) [Ratio] 13.7 % Normal 11.5-15.0 [facility] Comment on above: Performed By: #### L [id number] #### [facility] [address] [place] [address] ERYTHROCYTE MEAN CORPUSCULAR HEMOGLOBIN CONCENTRATION (G/DL) BY AUTOMATED 32.9 g/dL Normal 32.0-35.0 [facility] Comment on above: Performed By: #### L [id number] #### [facility] [address] [place] [address] Hematocrit (Bld) [Volume fraction] 34.0 % Low 39.0-55.0 [facility] Comment on above: Performed By: #### L [id number] #### [facility] [address] [place] [address] Hemoglobin (Bld) [Mass/Vol] 11.2 g/dL Low 13.0-17.0 [facility] Comment on above: Performed By: #### L [id number] #### [facility] ([facility]) [address] [place] [address] Immature granulocytes (Bld) [#/Vol] 0.02 10*3/uL Normal 0.00-0.20 [facility] Comment on above: Performed By: #### L [id number] #### [facility] [address] [place] [address] Immature granulocytes/100 WBC (Bld) 0.3 % Normal 0.0-1.0 [facility] Comment on above: Performed By: #### L [id number] #### [facility] [address] [place] [address] Lymphocytes (Bld) [#/Vol] 0.80 10*3/uL Low 1.20-4.00 [facility] Comment on above: Performed By: #### L [id number] #### [facility] [address] [place] [address] Lymphocytes/100 WBC (Bld) 11.9 % Low 20.0-45.0 [facility] Comment on above: Performed By: #### L [id number] #### [facility]) [address] [place] [address] MCH (RBC) [Entitic mass] 29.4 pg Normal 27.0-33.0 [facility] Comment on above: Performed By: #### L [id number] #### [facility] ([facility]) [address] [place] [address] MCV (RBC) [Entitic vol] 89.2 fL Normal 82.0-98.0 [facility] Comment on above: Performed By: #### L [id number] #### [facility] ([facility]) [address] [place] [address] Monocytes (Bld) [#/Vol] 0.54 10*3/uL Normal 0.10-1.00 [facility] Comment on above: Performed By: #### L [id number] #### [facility] ([facility]) [address] [place] [address] Monocytes/100 WBC (Bld) 8.0 % Normal 5.0-12.0 [facility] Comment on above: Performed By: #### L [id number] #### [facility] ([facility]) [address] [place] [address] Neutrophils (Bld) [#/Vol] 5.14 10*3/uL Normal 1.60-7.60 [facility] Comment on above: Performed By: #### L [id number] #### [facility] ([facility]) [address] [place] [address] Neutrophils/100 WBC (Bld) 76.7 % High 40.0-72.0 [facility] Comment on above: Performed By: #### L [id number] #### [facility] ([facility]) [address] [place] [address] NRBC (PER 100 WBCS) BY AUTOMATED COUNT 0.0 % Normal 0 [facility] Comment on above: Performed By: #### L [id number] #### [facility] ([facility]) [address] [place] [address] PLATELETS (10*3/UL) IN BLOOD AUTOMATED COUNT 271 10*3/uL Normal 150-400 [facility] Comment on above: Performed By: #### L [id number] #### [facility] ([facility]) [address] [place] [address] RBC (Bld) [#/Vol] 3.81 10*6/uL Low 4.20-5.70 [facility] Comment on above: Performed By: #### L [id number] #### [facility] ([facility]) [address] [place] [address] WBC (Bld) [#/Vol] 6.71 10*3/uL Normal 4.00-10.60 [facility] Comment on above: Performed By: #### L [id number] #### [facility] ([facility]) [address] [place] [address] COMPREHENSIVE METABOLIC PANE Claudio 05-19-2023 Albumin [Mass/Vol] 4.5 g/dL Normal 3.5-5.7 [facility] Comment on above: Performed By: #### L [id number] #### [facility] ([facility]) [address] [place] [address] ALP [Catalytic activity/Vol] 85 U/L Normal 34-104 [facility] Comment on above: Performed By: #### L [id number] #### [facility] ([facility]) [address] [place] [address] ALT [Catalytic activity/Vol] 10 U/L Normal 7-52 [facility] Comment on above: Performed By: #### L [id number] #### [facility] ([facility]) [address] [place] [address] Anion gap [Moles/Vol] 15 mmol/L Normal 7-20 [facility] Comment on above: Performed By: #### L [id number] #### [facility] ([facility]) [address] [place] [address] AST [Catalytic activity/Vol] 13 U/L Normal 13-39 [facility] Comment on above: Performed By: #### L [id number] #### [facility] ([facility]) [address] [place] [address] Bilirubin [Mass/Vol] 0.5 mg/dL Normal 0.3-1.0 [facility] Comment on above: Performed By: #### L [id number] #### [facility] ([facility]) [address] [place] [address] Calcium [Mass/Vol] 9.1 mg/dL Normal 8.6-10.3 [facility] Comment on above: Performed By: #### L [id number] #### [facility] ([facility]) [address] [place] [address] Chloride [Moles/Vol] 99 mmol/L Normal 98-107 [facility] Comment on above: Performed By: #### L [id number] #### [facility] ([facility]) [address] [place] [address] CO2 [Moles/Vol] 22 mmol/L Normal 21-31 [facility] Comment on above: Performed By: #### L [id number] #### [facility] ([facility]) [address] [place] [address] Creatinine [Mass/Vol] 0.85 mg/dL Normal 0.70-1.30 [facility] Comment on above: Performed By: #### L [id number] #### [facility] ([facility]) [address] [place] [address] GLOMERULAR FILTRATION RATE ML/MIN/1.73 SQ M.PREDICTED 92.9 mL/min/1.73m*2 Normal >60.[address] [facility] Comment on above: Result Comment: [facility]???s estimated glomerular filtration rate (eGFR) will [...] individuals. Performed By: #### L [id number] #### [facility] ([facility]) [address] [place] [address] Glucose [Mass/Vol] 107 mg/dL High 70-100 [facility] Comment on above: Performed By: #### L [id number] #### [facility] ([facility]) [address] [place] [address] Potassium [Moles/Vol] 4.9 mmol/L Normal 3.5-5.1 [facility] Comment on above: Performed By: #### L [id number] #### [facility] ([facility]) [address] [place] [address] Protein [Mass/Vol] 6.7 g/dL Normal 6.0-8.3 [facility] Comment on above: Performed By: #### L [id number] #### [facility] ([facility]) [address] [place] [address] Sodium [Moles/Vol] 131 mmol/L Low 136-145 [facility] Comment on above: Performed By: #### L [id number] #### [facility] ([facility]) [address] [place] [address] Urea nitrogen [Mass/Vol] 15 mg/dL Normal 7-25 [facility] Comment on above: Performed By: #### L [id number] #### [facility] ([facility]) [address] [place] [address] UREA NITROGEN/CREATININE (MASS RATIO) IN SER/PLAS 17.6 Normal [facility] Comment on above: Performed By: #### L [id number] #### [facility] ([facility]) [address] [place] [address] Follow-Upon 05-19-2023 Follow-Up [id number] Roger Suarez 1950 M Date Provider Department Center 05/19/2023 Shaylee-JERICHO ABAD None Family History Problem Relation Age of Onset Diabetes Mother Hypertension Mother Coronary artery disease Mother Other Mother Cystic kidney disease Mother Hypertension Father Skin cancer Father Cystic kidney disease Father Cystic kidney disease Sister Heart disease Brother ALS Brother Cystic kidney disease Brother Family Status - Relation Status Age at Mother Father Sister Brother Level of Service:40880 [place] OFFICE/OUTPATIENT ESTABLISHED MOD MDM 30 MIN Reason for Visit and Comments: Kidney Follow-up [] - No concerns Normal [facility] LIPID PANELon 05-19-2023 CHOL/HDL 1.9 mg/dL Normal [facility] Comment on above: Performed By: #### L [id number] #### [facility] ([facility]) [address] [place] [address] Cholesterol [Mass/Vol] 88 mg/dL Low 120-200 [facility] Comment on above: Performed By: #### L [id number] #### [facility] ([facility]) [address] [place] [address] Magnesium [Mass/Vol] 53 mg/dL Normal 40-149 [facility] Comment on above: Result Comment: TRIG LYCERIDE REFERENCE RANGE: 20 YEARS AND OLDER CARDIOVASCULAR RISK LESS THAN 150 mg/dL LOW RISK 150 TO 199 mg/dL BORDERLINE RISK 200 mg/dL AND GREATER HIGH RISK Performed By: #### L [id number] #### [facility] ([facility]) [address] [place] [address] Magnesium [Mass/Vol] 30 mg/dL Normal 0-160 [facility] Comment on above: Performed By: #### L [id number] #### [facility] ([facility]) [address] [place] [address] Magnesium [Mass/Vol] 47 mg/dL Normal 23-92 [facility] Comment on above: Performed By: #### L [id number] #### [facility] ([facility]) [address] [place] [address] NON HDL CHOL. (LDL+VLDL) 41 Normal [facility] Comment on above: Performed By: #### L [id number] #### [facility] ([facility]) [address] [place] [address] TOTAL VLDL-C 11 mg/dL Normal 0-[address] [facility] Comment on above: Performed By: #### L [id number] #### [facility] ([facility]) [address] [place] [address] Labon 05-19-2023 Lab [id number] Roger Suarez 1950 M Date Provider Department Center 05/19/202343877-CGG DRAW STATION KXT Draw [facility] Family History Problem Relation Age of Onset Diabetes Mother Hypertension Mother Coronary artery disease Mother Other Mother Cystic kidney disease Mother Hypertension Father Skin cancer Father Cystic kidney disease Father Cystic kidney disease Sister Heart disease Brother ALS Brother Cystic kidney disease Brother Family Status - Relation Status Age at Mother Father Sister Brother Normal [facility] MAGNESIUMon 05-19-2023 Magnesium [Mass/Vol] 1.3 mg/dL Low 1.9-2.7 [facility] Comment on above: Performed By: #### L [id number] #### [facility] ([facility]) [address] [place] [address] Orders Onlyon 05-19-2023 Orders Only [id number] Roger Suarez 1950 M Date Provider Department [...] Age at Mother Father Sister Brother Normal [facility] PHOSPHORUSon 05-19-2023 Magnesium [Mass/Vol] 4.5 mg/dL Normal 2.5-5.0 [facility] Comment on above: Performed By: #### L [id number] #### [facility] ([facility]) [address] [place] [address] TACROLIMUS LEVELon Tacrolimus (Bld) [Mass/Vol] 6.0 ng/mL Normal 5.0-20.0 [facility] Comment on above: Result Comment: The [employer] Tacrolimus assay is a delayed one-step immunoassay for the quantitative determination of tacrolimus in human whole blood using the chemiluminescent microparticle immunoassay (CMIA) technology with flexible assay protocols, referred to as Chemiflex. Performed By: #### L [id number] #### [facility] ([facility]) [address] [place] [address] TESTOSTERONE, FREE AND TOTAL , AND SHBGon 05-19-2023 SEX HORMONE BINDING GLOBULIN (NMOL/L) IN SER/PLAS 61 nmol/L Normal 11-80 [facility] Comment on above: Performed By: #### L [id number] ####[facility] [id number] [place] [address] TESTOSTERONE (NG/DL) IN SER/PLAS 440 ng/dL Normal 220-1000 [facility] Comment on above: Performed By: #### L [id number] ####[facility] [place] [address] TESTOSTERONE FREE (NG/ML) IN SER/PLAS 59.5 pg/mL Normal 47-[address] [facility] Comment on above: Result Comment: The concentration of free testosterone is derived from a mathematical expression based on the constant for the binding of testosterone to albumin and/or sex hormone binding globulin. Test Performed by [employer] [facility] [place] [address] - Released 05/19/2023 15:01 Performed By: #### L [id number] ####[facility] [place] [address] URIC ACIDon 05-19-2023 Magnesium [Mass/Vol] 6.2 mg/dL Normal 4.4-7.6 [facility] Comment on above: Performed By: #### L [id number] #### [facility] ([facility]) [address] [place] [address] Documentationon 05-14-2023 Documentation [id number] Roger Suarez 1950 M Date Provider Department Center 05/14/2023 LAQUITA RAMNO None Family History Problem Relation Age of Onset Diabetes Mother Hypertension Mother Coronary artery disease Mother Other Mother Cystic kidney disease Mother Hypertension Father Skin cancer Father Cystic kidney disease Father Cystic kidney disease Sister Heart disease Brother ALS Brother Cystic kidney disease Brother Family Status - Relation Status Age at Mother Father Sister Brother Normal [facility] 30on 04-30-2023 30 Problem: Pain - Adul t Goal: Verbalizes/displays adequate comfort level or baseline comfort level Outcome: Progressing Problem: Safety - Adult Goal: Free from fall injury Outcome: Progressing Problem: Discharge Planning Goal: Discharge to home or other facility with appropriate resources Outcome: Progressing Problem: Chronic Conditions and Co-morbidities Goal: Patient's chronic conditions and co-morbidity symptoms are monitored and maintained or improved Outcome: Progressing [facility] 30 Daily Case Managemen t Update Multidisciplinary rounds have been completed. Barriers to Discharge: MR for DC Home to follow up with [facility] on Friday. New Diabetic Supply Scripts have been faxed to his pharmacy in [place], [place]. Diet: Dietary Orders (From admission, onward) Start Ordered 04/29/231711 Special Kitchen Request Once Comments: Please send a salad with ham, roque, shredded cheddar cheese and onions with mosotho dressing. Layered chocolate cake and a diet [...] Consult? Answer: New diagnosis DM2 04/30/23 1109 [facility] BASIC METABOLIC PANELon 12-2 Anion gap [Moles/Vol] 12 mmol/L Normal 7-20 [facility] Comment on above: Performed By: #### L [id number] #### [facility] ([facility]) [address] [place] [address] Calcium [Mass/Vol] 8.7 mg/dL Normal 8.6-10.3 [facility] Comment on above: Performed By: #### L [id number] #### [facility] ([facility]) [address] [place] [address] Chloride [Moles/Vol] 102 mmol/L Normal 98-107 [facility] Comment on above: Performed By: #### L [id number] #### [facility] ([facility]) [address] [place] [address] CO2 [Moles/Vol] 24 mmol/L Normal 21-31 [facility] Comment on above: Performed By: #### L [id number] #### [facility] ([facility]) [address] [place] [address] Creatinine [Mass/Vol] 0.80 mg/dL Normal 0.70-1.30 [facility] Comment on above: Performed By: #### L [id number] #### [facility] ([facility]) [address] [place] [address] GLOMERULAR FILTRATION RATE ML/MIN/1.73 SQ M.PREDICTED 94.6 mL/min/1.73m*2 Normal >60.[address] [facility] Comment on above: Result Comment: [facility]???s estimated glomerular filtration rate (eGFR) will [...] individuals. Performed By: #### L [id number] #### [facility] ([facility]) [address] [place] [address] Glucose [Mass/Vol] 160 mg/dL High 70-100 [facility] Comment on above: Performed By: #### L [id number] #### [facility] ([facility]) [address] [place] [address] Potassium [Moles/Vol] 4.2 mmol/L Normal 3.5-5.1 [facility] Comment on above: Performed By: #### L [id number] #### [facility] ([facility]) [address] [place] [address] Sodium [Moles/Vol] 134 mmol/L Low 136-145 [facility] Comment on above: Performed By: #### L [id number] #### [facility] ([facility]) [address] [place] [address] Urea nitrogen [Mass/Vol] 14 mg/dL Normal 7-25 [facility] Comment on above: Performed By: #### L [id number] #### [facility] ([facility]) [address] [place] [address] UREA NITROGEN/CREATININE (MASS RATIO) IN SER/PLAS 17.5 Normal [facility] Comment on above: Performed By: #### L [id number] #### [facility] ([facility]) [address] [place] [address] CBCon 04-30-2023 Erythrocyte distribution width (RBC) [Ratio] 13.0 % Normal 11.5-15.0 [facility] Comment on above: Performed By: #### L [id number] #### [facility] ([facility]) [address] [place] [address] ERYTHROCYTE MEAN CORPUSCULAR HEMOGLOBIN CONCENTRATION (G/DL) BY AUTOMATED 33.9 g/dL Normal 32.0-35.0 [facility] Comment on above: Performed By: #### L [id number] #### [facility] ([facility]) [address] [place] [address] Hematocrit (Bld) [Volume fraction] 28.0 % Low 39.0-55.0 [facility] Comment on above: Performed By: #### L [id number] #### [facility] ([facility]) [address] [place] [address] Hemoglobin (Bld) [Mass/Vol] 9.5 g/dL Low 13.0-17.0 [facility] Comment on above: Performed By: #### L [id number] #### [facility] ([facility]) [address] [place] [address] MCH (RBC) [Entitic mass] 29.3 pg Normal 27.0-33.0 [facility] Comment on above: Performed By: #### L [id number] #### [facility] ([facility]) [address] [place] [address] MCV (RBC) [Entitic vol] 86.4 fL Normal 82.0-98.0 [facility] Comment on above: Performed By: #### L [id number] #### [facility] ([facility]) [address] [place] [address] PLATELETS (10*3/UL) IN BLOOD AUTOMATED COUNT 232 10*3/uL Normal 150-400 [facility] Comment on above: Performed By: #### L [id number] #### [facility] ([facility]) [address] [place] [address] RBC (Bld) [#/Vol] 3.24 10*6/uL Low 4.20-5.70 [facility] Comment on above: Performed By: #### L [id number] #### [facility] ([facility]) [address] [place] [address] WBC (Bld) [#/Vol] 5.11 10*3/uL Normal 4.00-10.60 [facility] Comment on above: Performed By: #### L [id number] #### [facility] ([facility]) [address] [place] [address] MAGNESIUMon 04-30-2023 Magnesium [Mass/Vol] 1.2 mg/dL Low 1.9-2.7 [facility] Comment on above: Performed By: #### L [id number] #### [facility] ([facility]) [address] [place] [address] PHOSPHORUSon 04-30-2023 Magnesium [Mass/Vol] 3.3 mg/dL Normal 2.5-5.0 [facility] Comment on above: Performed By: #### L [id number] #### [facility] ([facility]) [address] [place] [address] POCT GLUCOSE METER UNSOLICIT ED RESULTSon 04-30-2023 Glucose [Mass/Vol] 146 mg/dL High 70-105 [facility] Comment on above: Order Comment: Waive d Testing in the ED is performed under the ED CLIA certificate #[id number]. Result Comment: [email or web address] [email or web address] Performed By: #### L [id number] #### [facility] ([facility]) [address] [place] [address] Glucose [Mass/Vol] 251 mg/dL High 70-105 [facility] Comment on above: Order Comment: Waive d Testing in the ED is performed under the ED CLIA certificate #[id number]. Result Comment: [email or web address] [email or web address] Performed By: #### L [id number] #### [facility] ([facility]) [address] [place] [address] TACROLIMUS LEVELon 3 Tacrolimus (Bld) [Mass/Vol] 6.1 ng/mL Normal 5.0-20.0 [facility] Comment on above: Result Comment: The [employer] Tacrolimus assay is a delayed one-step immunoassay for the quantitative determination of tacrolimus in human whole blood using the chemiluminescent microparticle immunoassay (CMIA) technology with flexible assay protocols, referred to as Chemiflex. Performed By: #### L [id number] #### [facility] ([facility]) [address] [place] [address] 30on 04-29-2023 30 Daily Case Managemen t [...] roque, shredded cheddar cheese and onions with mosotho dressing. Layered chocolate cake and a diet [...] of Consultation Consultation and Management 04/27/232312 Normal [facility] BASIC METABOLIC PANELon 04-11 Anion gap [Moles/Vol] 16 mmol/L Normal 7-20 [facility] Comment on above: Performed By: #### L [id number] #### [facility] ([facility]) [address] [place] [address] Anion gap [Moles/Vol] 13 mmol/L Normal 7-20 [facility] Comment on above: Performed By: #### L [id number] #### [facility] ([facility]) [address] [place] [address] Calcium [Mass/Vol] 8.7 mg/dL Normal 8.6-10.3 [facility] Comment on above: Performed By: #### L [id number] #### [facility] ([facility]) [address] [place] [address] Calcium [Mass/Vol] 8.7 mg/dL Normal 8.6-10.3 [facility] Comment on above: Performed By: #### L [id number] #### [facility] ([facility]) [address] [place] [address] Chloride [Moles/Vol] 102 mmol/L Normal 98-107 [facility] Comment on above: Performed By: #### L [id number] #### [facility] ([facility]) [address] [place] [address] Chloride [Moles/Vol] 103 mmol/L Normal 98-107 [facility] Comment on above: Performed By: #### L [id number] #### [facility] ([facility]) [address] [place] [address] CO2 [Moles/Vol] 19 mmol/L Low 21-31 [facility] Comment on above: Performed By: #### L [id number] #### [facility] ([facility]) [address] [place] [address] CO2 [Moles/Vol] 22 mmol/L Normal 21-31 [facility] Comment on above: Performed By: #### L [id number] #### [facility] ([facility]) [address] [place] [address] Creatinine [Mass/Vol] 1.02 mg/dL Normal 0.70-1.30 [facility] Comment on above: Performed By: #### L [id number] #### [facility] ([facility]) [address] [place] [address] Creatinine [Mass/Vol] 0.96 mg/dL Normal 0.70-1.30 [facility] Comment on above: Performed By: #### L [id number] #### [facility] ([facility]) [address] [place] [address] GLOMERULAR FILTRATION RATE ML/MIN/1.73 SQ M.PREDICTED 78.6 mL/min/1.73m*2 Normal >60.[address] [facility] Comment on above: Result Comment: [facility]???s estimated glomerular filtration rate (eGFR) will [...] group of individuals. Performed By: #### L [id number] #### [facility] ([facility]) [address] [place] [address] GLOMERULAR FILTRATION RATE ML/MIN/1.73 SQ M.PREDICTED 84.5 mL/min/1.73m*2 Normal >60.[address] [facility] Comment on above: Result Comment: [facility]???s estimated glomerular filtration rate (eGFR) will [...] group of individuals. Performed By: #### L [id number] #### [facility] ([facility]) [address] [place] [address] Glucose [Mass/Vol] 206 mg/dL High 70-100 [facility] Comment on above: Performed By: #### L [id number] #### [facility] ([facility]) [address] [place] [address] Glucose [Mass/Vol] 175 mg/dL High 70-100 [facility] Comment on above: Performed By: #### L [id number] #### [facility] ([facility]) [address] [place] [address] Potassium [Moles/Vol] 4.8 mmol/L Normal 3.5-5.1 [facility] Comment on above: Performed By: #### L [id number] #### [facility] ([facility]) [address] [place] [address] Potassium [Moles/Vol] 4.5 mmol/L Normal 3.5-5.1 [facility] Comment on above: Performed By: #### L [id number] #### [facility] ([facility]) [address] [place] [address] Sodium [Moles/Vol] 132 mmol/L Low 136-145 [facility] Comment on above: Performed By: #### L [id number] #### [facility] ([facility]) [address] [place] [address] Sodium [Moles/Vol] 133 mmol/L Low 136-145 [facility] Comment on above: Performed By: #### L [id number] #### [facility] ([facility]) [address] [place] [address] Urea nitrogen [Mass/Vol] 31 mg/dL High 7-25 [facility] Comment on above: Performed By: #### L [id number] #### [facility] ([facility]) [address] [place] [address] Urea nitrogen [Mass/Vol] 29 mg/dL High 7-25 [facility] Comment on above: Performed By: #### L [id number] #### [facility] ([facility]) [address] [place] [address] UREA NITROGEN/CREATININE (MASS RATIO) IN SER/PLAS 30.4 Normal [facility] Comment on above: Performed By: #### L [id number] #### [facility] ([facility]) [address] [place] [address] UREA NITROGEN/CREATININE (MASS RATIO) IN SER/PLAS 30.2 Normal [facility] Comment on above: Performed By: #### L [id number] #### [facility] ([facility]) [address] [place] [address] POCT GLUCOSE METER UNSOLICIT ED RESULTSon 04-29-2023 Glucose [Mass/Vol] 145 mg/dL High 70-105 [facility] Comment on above: Order Comment: Waive d Testing in the ED is performed under the ED CLIA certificate #[id number]. Result Comment: [email or web address] Performed By: #### L [id number] ####[facility] ([facility])[address] [place] [address] Glucose [Mass/Vol] 147 mg/dL High 70-105 [facility] Comment on above: Order Comment: Waive d Testing in the ED is performed under the ED CLIA certificate #[id number]. Result Comment: [email or web address] Performed By: #### L [id number] #### [facility] ([facility]) [address] [place] [address] Glucose [Mass/Vol] 166 mg/dL High 70-105 [facility] Comment on above: Order Comment: DRAW Q 3 MONTHS MAY, August, November, FEBRUARY Result Comment: lzar ate Performed By: #### L [id number] #### [facility] ([facility]) [address] [place] [address] Glucose [Mass/Vol] 151 mg/dL High 70-105 [facility] Comment on above: Order Comment: DRAW Q 3 MONTHS MAY, August, November, FEBRUARY Result Comment: dcun dic Performed By: #### L [id number] #### [facility] ([facility]) [address] [place] [address] TACROLIMUS LEVELon Tacrolimus (Bld) [Mass/Vol] 8.6 ng/mL Normal 5.0-20.0 [facility] Comment on above: Result Comment: The [employer]IST Tacrolimus assay is a delayed one-step immunoassay for the quantitative determination of tacrolimus in human whole blood using the chemiluminescent microparticle immunoassay (CMIA) technology with flexible assay protocols, referred to as Chemiflex. Performed By: #### L [id number] #### [facility] ([facility]) [address] [place] [address] APTTon 04-28-2023 ACTIVATED PARTIAL THROMBOPLASTIN TIME IN PPP BY COAGULATION ASSAY 26.1 Seconds Normal 25.0-35.0 [facility] Comment on above: Result Comment: Clin ical significance of the APTT is questionable in the presence of heparin. Performed By: #### L [id number] ####[facility] ([facility])[address] [place] [address] B-TYPE NATRIURETIC PEPTIDEon 04-28-2023 Natriuretic peptide B (Bld) [Mass/Vol] 98 pg/mL Normal 0-100 [facility] Comment on above: Performed By: #### L [id number] ####[facility] ([facility])[address] [place] [address] BASIC METABOLIC PANELon 04-11 Anion gap [Moles/Vol] 23 mmol/L High 7-20 [facility] Comment on above: Performed By: #### L [id number] ####[facility] ([facility])[address] [place] [address] Anion gap [Moles/Vol] 22 mmol/L High 7-20 [facility] Comment on above: Performed By: #### L [id number] #### [facility] ([facility]) [address] [place] [address] Anion gap [Moles/Vol] 20 mmol/L Normal 7-20 [facility] Comment on above: Performed By: #### L [id number] ####[facility] ([facility])[address] [place] [address] Anion gap [Moles/Vol] 17 mmol/L Normal 7-20 [facility] Comment on above: Performed By: #### L [id number] ####[facility] ([facility])[address] [place] [address] Anion gap [Moles/Vol] 17 mmol/L Normal 7-20 [facility] Comment on above: Performed By: #### L [id number] #### [facility] ([facility]) [address] [place] [address] Calcium [Mass/Vol] 8.8 mg/dL Normal 8.6-10.3 [facility] Comment on above: Performed By: #### L [id number] ####[facility] ([facility])[address] [place] [address] Calcium [Mass/Vol] 8.9 mg/dL Normal 8.6-10.3 [facility] Comment on above: Performed By: #### L [id number] #### [facility] ([facility]) [address] [place] [address] Calcium [Mass/Vol] 8.6 mg/dL Normal 8.6-10.3 [facility] Comment on above: Performed By: #### L [id number] ####[facility] ([facility])[address] [place] [address] Calcium [Mass/Vol] 8.7 mg/dL Normal 8.6-10.3 [facility] Comment on above: Performed By: #### L [id number] ####[facility] ([facility])[address] [place] [address] Calcium [Mass/Vol] 8.6 mg/dL Normal 8.6-10.3 [facility] Comment on above: Performed By: #### L [id number] #### [facility] ([facility]) [address] [place] [address] Chloride [Moles/Vol] 99 mmol/L Normal 98-107 [facility] Comment on above: Performed By: #### L [id number] ####[facility] ([facility])[address] [place] [address] Chloride [Moles/Vol] 99 mmol/L Normal 98-107 [facility] Comment on above: Performed By: #### L [id number] #### [facility] ([facility]) [address] [place] [address] Chloride [Moles/Vol] 101 mmol/L Normal 98-107 [facility] Comment on above: Performed By: #### L [id number] ####[facility] ([facility])[address] [place] [address] Chloride [Moles/Vol] 100 mmol/L Normal 98-107 [facility] Comment on above: Performed By: #### L [id number] ####[facility] ([facility])[address] [place] [address] Chloride [Moles/Vol] 102 mmol/L Normal 98-107 [facility] Comment on above: Performed By: #### L [id number] #### [facility] ([facility]) [address] [place] [address] CO2 [Moles/Vol] 13 mmol/L Invalid Interpretation Code [facility] Comment on above: Performed By: #### L [id number] ####[facility] ([facility])[address] [place] [address] CO2 [Moles/Vol] 13 mmol/L Invalid Interpretation Code [facility] Comment on above: Performed By: #### L [id number] #### [facility] ([facility]) [address] [place] [address] CO2 [Moles/Vol] 14 mmol/L Invalid Interpretation Code [facility] Comment on above: Performed By: #### L [id number] ####[facility] ([facility])[address] [place] [address] CO2 [Moles/Vol] 19 mmol/L Low - [facility] Comment on above: Performed By: #### L [id number] ####[facility] ([facility])[address] [place] [address] CO2 [Moles/Vol] 20 mmol/L Low - [facility] Comment on above: Performed By: #### L [id number] #### [facility] ([facility]) [address] [place] [address] Creatinine [Mass/Vol] 1.31 mg/dL High 0.70-1.30 [facility] Comment on above: Performed By: #### L [id number] ####[facility] ([facility])[address] [place] [address] Creatinine [Mass/Vol] 1.33 mg/dL High 0.70-1.30 [facility] Comment on above: Performed By: #### L [id number] #### [facility] ([facility]) [address] [place] [address] Creatinine [Mass/Vol] 1.32 mg/dL High 0.70-1.30 [facility] Comment on above: Performed By: #### L [id number] ####[facility] ([facility])[address] [place] [address] Creatinine [Mass/Vol] 1.20 mg/dL Normal 0.70-1.30 [facility] Comment on above: Performed By: #### L [id number] ####[facility] ([facility])[address] [place] [address] Creatinine [Mass/Vol] 1.07 mg/dL Normal 0.70-1.30 [facility] Comment on above: Performed By: #### L [id number] #### [facility] ([facility]) [address] [place] [address] GLOMERULAR FILTRATION RATE ML/MIN/1.73 SQ M.PREDICTED 58.2 mL/min/1.73m*2 Low >60.[address] [facility] Comment on above: Result Comment: [facility]???s estimated glomerular filtration rate (eGFR) will [...] of individuals. Performed By: #### L [id number] ####[facility] ([facility])[address] [place] [address] GLOMERULAR FILTRATION RATE ML/MIN/1.73 SQ M.PREDICTED 57.1 mL/min/1.73m*2 Low >60.[address] [facility] Comment on above: Result Comment: [facility]???s estimated glomerular filtration rate (eGFR) will [...] individuals. Performed By: #### L [id number] #### [facility] ([facility]) [address] [place] [address] GLOMERULAR FILTRATION RATE ML/MIN/1.73 SQ M.PREDICTED 57.7 mL/min/1.73m*2 Low >60.[address] [facility] Comment on above: Result Comment: [facility]???s estimated glomerular filtration rate (eGFR) will [...] of individuals. Performed By: #### L [id number] ####[facility] ([facility])[address] [place] [address] GLOMERULAR FILTRATION RATE ML/MIN/1.73 SQ M.PREDICTED 64.7 mL/min/1.73m*2 Normal >60.[address] [facility] Comment on above: Result Comment: [facility]???s estimated glomerular filtration rate (eGFR) will [...] of individuals. Performed By: #### L [id number] ####[facility] ([facility])[address] [place] [address] GLOMERULAR FILTRATION RATE ML/MIN/1.73 SQ M.PREDICTED 74.2 mL/min/1.73m*2 Normal >60.[address] [facility] Comment on above: Result Comment: [facility]???s estimated glomerular filtration rate (eGFR) will [...] group of individuals. Performed By: #### L [id number] #### [facility] ([facility]) [address] [place] [address] Glucose [Mass/Vol] 264 mg/dL High 70-100 [facility] Comment on above: Performed By: #### L [id number] ####[facility] ([facility])[address] [place] [address] Glucose [Mass/Vol] 324 mg/dL High 70-100 [facility] Comment on above: Performed By: #### L [id number] #### [facility] ([facility]) [address] [facility] [place] [address] Glucose [Mass/Vol] 332 mg/dL High 70-100 [facility] Comment on above: Performed By: #### L [id number] ####[facility] ([facility])[address] [place] [address] Glucose [Mass/Vol] 237 mg/dL High 70-100 [facility] Comment on above: Performed By: #### L [id number] ####[facility] ([facility])[address] [place] [address] Glucose [Mass/Vol] 144 mg/dL High 70-100 [facility] Comment on above: Performed By: #### L [id number] #### [facility] ([facility]) [address] [place] [address] Potassium [Moles/Vol] 5.7 mmol/L High 3.5-5.1 [facility] Comment on above: Performed By: #### L [id number] ####[facility] ([facility])[address] [place] [address] Potassium [Moles/Vol] 5.7 mmol/L High 3.5-5.1 [facility] Comment on above: Performed By: #### L [id number] #### [facility] ([facility]) [address] [place] [address] Potassium [Moles/Vol] 4.6 mmol/L Normal 3.5-5.1 [facility] Comment on above: Performed By: #### L [id number] ####[facility] [place] [address] Potassium [Moles/Vol] 4.4 mmol/L Normal 3.5-5.1 [facility] Comment on above: Performed By: #### L [id number] ####[facility] ([facility])[address] [place] [address] Potassium [Moles/Vol] 4.7 mmol/L Normal 3.5-5.1 [facility] Comment on above: Performed By: #### L [id number] #### [facility] ([facility]) [address] [place] [address] Sodium [Moles/Vol] 129 mmol/L Low 136-[address] [facility] Comment on above: Performed By: #### L [id number] ####[facility] ([facility])[address] [place] [address] Sodium [Moles/Vol] 128 mmol/L Low 136-145 [facility] Comment on above: Performed By: #### L [id number] #### [facility] ([facility]) [address] [place] [address] Sodium [Moles/Vol] 130 mmol/L Low 136-[address] [facility] [facility] Comment on above: Performed By: #### L [id number] ####[facility] ([facility])[address] [place] [address] Sodium [Moles/Vol] 132 mmol/L Low 136-145 [facility] Comment on above: Performed By: #### L [id number] ####[facility] ([facility])[address] [place] [address] Sodium [Moles/Vol] 134 mmol/L Low 136-145 [facility] Comment on above: Performed By: #### L [id number] #### [facility] ([facility]) [address] [facility] [place] [address] Urea nitrogen [Mass/Vol] 44 mg/dL High 7-25 [facility] Comment on above: Performed By: #### L [id number] ####[facility] ([facility])[address] [place] [address] Urea nitrogen [Mass/Vol] 45 mg/dL High 7-25 [facility] Comment on above: Performed By: #### L [id number] #### [facility] ([facility]) [address] [facility] [place] [address] Urea nitrogen [Mass/Vol] 43 mg/dL High 7-25 [facility] Comment on above: Performed By: #### L [id number] ####[facility] ([facility])[address] [place] [address] Urea nitrogen [Mass/Vol] 40 mg/dL High 7-25 [facility] Comment on above: Performed By: #### L [id number] ####[facility] ([facility])[address] [place] [address] Urea nitrogen [Mass/Vol] 34 mg/dL High 7-25 [facility] Comment on above: Performed By: #### L [id number] #### [facility] [address] [place] [address] UREA NITROGEN/CREATININE (MASS RATIO) IN SER/PLAS 33.6 [facility] Comment on above: Performed By: #### L [id number] ####[facility] [place] [address] UREA NITROGEN/CREATININE (MASS RATIO) IN SER/PLAS 33.8 [facility] Comment on above: Performed By: #### L [id number] #### [facility] [address] [place] [address] UREA NITROGEN/CREATININE (MASS RATIO) IN SER/PLAS 32.6 Normal [facility] Comment on above: Performed By: #### L [id number] ####[facility] [facility] [place] [address] UREA NITROGEN/CREATININE (MASS RATIO) IN SER/PLAS 33.3 [facility] Comment on above: Performed By: #### L [id number] ####[facility] ([facility])[address] [place] [address] UREA NITROGEN/CREATININE (MASS RATIO) IN SER/PLAS 31.8 [facility] Comment on above: Performed By: #### L [id number] #### [facility] ([facility]) [address] [place] [address] BETA HYDROXYBUTYRATEon 04-28 BETA HYDROXYBUTYRATE (MMOL/L) IN SER/PLAS 6.22 mmol/L High 0.02-0.27 [facility] Comment on above: Performed By: #### L [id number] #### [facility] [address] [place] [address] BLOOD CULTUREon 04-28-2023 Bacteria identified Cx Nom (Bld) No growth at 5 days Normal [facility] Comment on above: Order Comment: From a different site than #1. Performed By: #### L [id number] #### [facility] [address] [place] [address] Bacteria identified Cx Nom (Bld) No growth at 5 days Normal [facility] Comment on above: Performed By: #### L [id number] ####[facility] ([facility])[address] [place] [address] Order Comment: From a different site than #1. Performed By: #### L [id number] #### [facility] ([facility]) [address] [place] [address] CBC WITH AUTO DIFFERENTIALon 04-28-2023 Basophils (Bld) [#/Vol] 0.04 10*3/uL Normal 0.00-0.20 [facility] Comment on above: Performed By: #### L [id number] #### [facility] ([facility]) [address] [place] [address] Basophils/100 WBC (Bld) 0.4 % Normal 0.0-1.0 [facility] Comment on above: Performed By: #### L [id number] #### [facility] ([facility]) [address] [place] [address] Eosinophils (Bld) [#/Vol] 0.09 10*3/uL Normal 0.00-0.50 [facility] Comment on above: Performed By: #### L [id number] #### [facility] ([facility]) [address] [place] [address] Eosinophils/100 WBC (Bld) 1.0 % Normal 0.0-6.0 [facility] Comment on above: Performed By: #### L [id number] #### [facility] [address] [place] [address] Erythrocyte distribution width (RBC) [Ratio] 13.1 % Normal 11.5-15.0 [facility] Comment on above: Performed By: #### L [id number] #### [facility] [address] [place] [address] ERYTHROCYTE MEAN CORPUSCULAR HEMOGLOBIN CONCENTRATION (G/DL) BY AUTOMATED 33.9 g/dL Normal 32.0-35.0 [facility] Comment on above: Performed By: #### L [id number] #### [facility] ([facility] [address] [place] [address] Hematocrit (Bld) [Volume fraction] 32.7 % Low 39.0-55.0 [facility] Comment on above: Performed By: #### L [id number] #### [facility] [address] [place] [address] Hemoglobin (Bld) [Mass/Vol] 11.1 g/dL Low 13.0-17.0 [facility] Comment on above: Performed By: #### L [id number] #### [facility] ([facility]) [address] [place] [address] Immature granulocytes (Bld) [#/Vol] 0.15 10*3/uL Normal 0.00-0.20 [facility] Comment on above: Performed By: #### L [id number] #### [facility] ([facility]) [address] [place] [address] Immature granulocytes/100 WBC (Bld) 1.6 % High 0.0-1.0 [facility] Comment on above: Performed By: #### L [id number] #### [facility] ([facility]) [address] [place] [address] Lymphocytes (Bld) [#/Vol] 1.04 10*3/uL Low 1.20-4.00 [facility] Comment on above: Performed By: #### L [id number] #### [facility] ([facility]) [address] [place] [address] Lymphocytes/100 WBC (Bld) 11.3 % Low 20.0-45.0 [facility] Comment on above: Performed By: #### L [id number] #### [facility] ([facility]) [address] [place] [address] MCH (RBC) [Entitic mass] 29.3 pg Normal 27.0-33.0 [facility] Comment on above: Performed By: #### L [id number] #### [facility] ([facility]) [address] [place] [address] MCV (RBC) [Entitic vol] 86.3 fL Normal 82.0-98.0 [facility] Comment on above: Performed By: #### L [id number] #### [facility] ([facility]) [address] [place] [address] Monocytes (Bld) [#/Vol] 0.96 10*3/uL Normal 0.10-1.00 [facility] Comment on above: Performed By: #### L [id number] #### [facility] ([facility]) [address] [place] [address] Monocytes/100 WBC (Bld) 10.5 % Normal 5.0-12.0 [facility] Comment on above: Performed By: #### L [id number] #### [facility] ([facility]) [address] [place] [address] Neutrophils (Bld) [#/Vol] 6.90 10*3/uL Normal 1.60-7.60 [facility] Comment on above: Performed By: #### L [id number] #### [facility] ([facility]) [address] [place] [address] Neutrophils/100 WBC (Bld) 75.2 % High 40.0-72.0 [facility] Comment on above: Performed By: #### L [id number] #### [facility] [address] [place] [address] NRBC (PER 100 WBCS) BY AUTOMATED COUNT 0.0 % Normal 0 [facility] Comment on above: Performed By: #### L [id number] #### [facility] ([facility]) [address] [place] [address] PLATELETS (10*3/UL) IN BLOOD AUTOMATED COUNT 301 10*3/uL Normal 150-400 [facility] Comment on above: Performed By: #### L [id number] #### [facility] ([facility]) [address] [place] [address] RBC (Bld) [#/Vol] 3.79 10*6/uL Low 4.20-5.70 [facility] Comment on above: Performed By: #### L [id number] #### [facility] ([facility]) [address] [place] [address] WBC (Bld) [#/Vol] 9.18 10*3/uL Normal 4.00-10.60 [facility] Comment on above: Performed By: #### L [id number] #### [facility] ([facility]) [address] [place] [address] CMV DNA, QUALITATIVE, PCRon 04-28-2023 CYTOMEGALOVIRUS QUAL. PCR Not detected Normal [facility] Comment on above: Result Comment: NOT DETECTED - A negative result does not rule out the presence of PCR inhibitors in the patient specimen or assay specific nucleic acid in concentrations below the level of detection by the assay. INTERPRETIVE INFORMATION: Cytomegalovirus Detection by PCR This test was developed and its performance characteristics determined by [facility]. It has not been cleared or approved by the [place] Food and Drug Administration. This test was performed in a CLIA certified laboratory and is intended for clinical purposes. Performed By: [facility] [address] [place] [id number] [employer] Helper: René Wick MD, PhD CLIA Number: [id number] Performed By: #### L [id number] #### [facility] ([facility]) [address] [place] [address] CYTOMEGALOVIRUS SOURCE Blood Normal [facility] Comment on above: Performed By: #### L [id number] #### [facility] ([facility]) [address] [place] [address] COMPREHENSIVE METABOLIC PANE Claudio 04-28-2023 Albumin [Mass/Vol] 3.8 g/dL Normal 3.5-5.7 [facility] Comment on above: Performed By: #### L [id number] #### [facility] ([facility]) [address] [place] [address] ALP [Catalytic activity/Vol] 100 U/L Normal 34-104 [facility] Comment on above: Performed By: #### L [id number] #### [facility] [address] [place] [address] ALT [Catalytic activity/Vol] 12 U/L Normal 7-52 [facility] Comment on above: Performed By: #### L [id number] #### [facility] ([facility]) [address] [place] [address] Anion gap [Moles/Vol] 15 mmol/L Normal 7-20 [facility] Comment on above: Performed By: #### L [id number] #### [facility] [address] [place] [address] Performed By: #### L [id number] ####[facility] ([facility])[address] [place] [address] AST [Catalytic activity/Vol] 12 U/L Low 13-39 [facility] Comment on above: Performed By: #### L [id number] #### [facility] ([facility]) [address] [place] [address] Bilirubin [Mass/Vol] 0.4 mg/dL Normal 0.3-1.0 [facility] Comment on above: Performed By: #### L [id number] #### [facility] [address] [place] [address] Calcium [Mass/Vol] 8.6 mg/dL Normal 8.6-10.3 [facility] Comment on above: Performed By: #### L [id number] #### [facility]) [address] [place] [address] Performed By: #### L [id number] ####[facility] ([facility])[address] [place] [address] Chloride [Moles/Vol] 101 mmol/L Normal 98-107 [facility] Comment on above: Performed By: #### L [id number] #### [facility]) [address] [place] [address] Performed By: #### L [id number] ####[facility] [place] [address] CO2 [Moles/Vol] 18 mmol/L Low 21-31 [facility] Comment on above: Performed By: #### L [id number] #### [facility] ([facility]) [address] [place] [address] Performed By: #### L [id number] ####[facility] ([facility])[address] [place] [address] Creatinine [Mass/Vol] 1.36 mg/dL High 0.70-1.30 [facility] Comment on above: Performed By: #### L [id number] #### [facility]) [address] [place] [address] Performed By: #### L [id number] ####[facility] ([facility])[address] [place] [address] GLOMERULAR FILTRATION RATE ML/MIN/1.73 SQ M.PREDICTED 55.6 mL/min/1.73m*2 Low >60.[address] [facility] Comment on above: Result Comment: [facility]???s estimated glomerular filtration rate (eGFR) will [...] individuals. Performed By: #### L [id number] #### [facility] [address] [place] [address] Performed By: #### L [id number] ####[facility] ([facility])[address] [place] [address] Glucose [Mass/Vol] 149 mg/dL High 70-100 [facility] Comment on above: Performed By: #### L [id number] #### [facility] ([facility]) [address] [place] [address] Performed By: #### L [id number] ####[facility] ([facility])[address] [place] [address] Potassium [Moles/Vol] 4.8 mmol/L Normal 3.5-5.1 [facility] Comment on above: Performed By: #### L [id number] #### [facility] ([facility]) [address] [place] [address] Performed By: #### L [id number] ####[facility] ([facility])[address] [place] [address] Protein [Mass/Vol] 6.0 g/dL Normal 6.0-8.3 [facility] Comment on above: Performed By: #### L [id number] #### [facility] ([facility]) [address] [place] [address] Sodium [Moles/Vol] 129 mmol/L Low 136-145 [facility] Comment on above: Performed By: #### L [id number] #### [facility] [address] [place] [address] Performed By: #### L [id number] ####[facility] ([facility])[address] [place] [address] Urea nitrogen [Mass/Vol] 45 mg/dL High 7-25 [facility] Comment on above: Performed By: #### L [id number] #### [facility] LAB ([facility]) [address] [place] [address] Performed By: #### L [id number] ####[facility] (AKER)[address] [place] [address] UREA NITROGEN/CREATININE (MASS RATIO) IN SER/PLAS 33.1 Normal [facility] Comment on above: Performed By: #### L [id number] #### [facility] ([facility]) [address] [place] [address] Performed By: #### L [id number] ####[facility] ([facility])[address] [place] [address] CONSULTon 04-28-2023 CONSULT - Attestation signed by [...] level Nephrology Consult Note Patient : Roger Mehta Suarez; 72 y.o. Location: [facility]2/5172-01 Attending: Esther Garduno MD Admit Date: 04/27/2023 Hospital Day: 1 Reason for Consult: ESRD s/p renal transplant with DAVID. History of Present Illness: HPI: Roger Suarez is a 72 y.o. male with PMHx ESRD d/t PKD s/p renal transplant 2020, HTN, HLD, CAD, PVD, COPD, pulmonary hypertension, HFrEF (EF 45%) and NIDDM2. Patient admitted on 04/27/2023 as a transfer from outside hospital in [place] for concerns of possible DKA, hyponatremia, and [...] nursing note reviewed. Exam conducted with a delinquent tax collector present (Dr. Pan). Constitutional: General: He is [...] No ed (more content not included)... Normal [facility] CREATININE, URINE, RANDOMon 04-28-2023 Creatinine (U) [Mass/Vol] 100.0 mg/dL Normal 26-299 [facility] Comment on above: Performed By: #### L [id number] #### [facility] ([facility]) [address] [place] [address] HEMOGLOBIN A1Con 04-28-2023 Glucose [Mass/Vol] 372 mg/dL Normal [facility] Comment on above: Order Comment: NO VA RIANT Performed By: #### L [id number] #### [facility] ([facility]) [address] [place] [address] HbA1c (Bld) [Mass fraction] 14.6 % High 4.0-6.0 [facility] Comment on above: Order Comment: NO VA RIANT Performed By: #### L [id number] #### [facility] ([facility]) [address] [place] [address] LACTIC ACID WITH 4 HOUR REFL EXon 04-28-2023 LACTATE (MMOL/L) IN SER/PLAS 0.8 mmol/L Normal 0.5-2.2 [facility] Comment on above: Performed By: #### L [id number] #### [facility] ([facility]) [address] [place] [address] MAGNESIUMon 04-28-2023 Magnesium [Mass/Vol] 1.7 mg/dL Low 1.9-2.7 [facility] Comment on above: Performed By: #### L [id number] ####[facility] ([facility])[address] [place] [address] NURSNOTEon 04-28-[address] Nguyen ( nephrology) regarding placing powerglide if pt a candidate, ok with placement on right arm. Normal [facility] OSMOLALITYon 04-28-2023 OSMOLALITY MEASURED 310 mOsm/kg High 275-295 [facility] Comment on above: Result Comment: Test Performed by [employer] [facility] [place] [address] - Released 04/28/2023 22:42 Performed By: #### L [id number] #### [facility] ([facility]) [address] [place] [address] OSMOLALITY, URINEon 04-28-20 23 OSMOLALITY, URINE 446 mOsm/kg Normal 80-1300 [facility] Comment on above: Result Comment: Test Performed by [employer] [address] [place] [address] - Released 04/29/2023 03:35 Performed By: #### L [id number] #### [facility] ([facility]) [address] [place] [address] PHOSPHORUSon 04-28-2023 Magnesium [Mass/Vol] 3.7 mg/dL Normal 2.5-5.0 [facility] Comment on above: Performed By: #### L [id number] ####[facility] ([facility])[address] [place] [address] POCT GLUCOSE METER UNSOLICIT ED RESULTSon 04-28-2023 Glucose [Mass/Vol] 139 mg/dL High 70-105 [facility] Comment on above: Order Comment: Waive d Testing in the ED is performed under the ED CLIA certificate #[id number]. Result Comment: acle jordin Performed By: #### L [id number] #### [facility] ([facility]) [address] [place] [address] Glucose [Mass/Vol] 312 mg/dL High 70-105 [facility] Comment on above: Order Comment: Waive d Testing in the ED is performed under the ED CLIA certificate #[id number]. Result Comment: wwar rad Performed By: #### L [id number] #### [facility] ([facility]) [address] [place] [address] Glucose [Mass/Vol] 356 mg/dL High 70-105 [facility] Comment on above: Order Comment: Waive d Testing in the ED is performed under the ED CLIA certificate #[id number]. Result Comment: abrosa rbo Performed By: #### L [id number] #### [facility] ([facility]) [address] [place] [address] Glucose [Mass/Vol] 315 mg/dL High 70-105 [facility] Comment on above: Order Comment: Waive d Testing in the ED is performed under the ED CLIA certificate #[id number]. Result Comment: wwar rad Performed By: #### L [id number] ####[facility] (BEAKER)[address] [place] [address] Glucose [Mass/Vol] 247 mg/dL High 70-105 [facility] Comment on above: Order Comment: Waive d Testing in the ED is performed under the ED CLIA certificate #[id number]. Result Comment: wwar rad Performed By: #### L [id number] #### [facility] ([facility]) [address] [place] [address] Glucose [Mass/Vol] 203 mg/dL High 70-105 [facility] Comment on above: Order Comment: Waive d Testing in the ED is performed under the ED CLIA certificate #[id number]. Result Comment: [email or web address] [email or web address] Performed By: #### L [id number] #### [facility] ([facility]) [address] [place] [address] Glucose [Mass/Vol] 165 mg/dL High 70-105 [facility] Comment on above: Order Comment: Waive d Testing in the ED is performed under the ED CLIA certificate #[id number]. Result Comment: besc obe Performed By: #### L [id number] #### [facility] [address] [place] [address] Glucose [Mass/Vol] 145 mg/dL High 70-105 [facility] Comment on above: Order Comment: Waive d Testing in the ED is performed under the ED CLIA certificate #[id number]. Result Comment: wwar rad Performed By: #### L [id number] #### [facility] ([facility]) [address] [place] [address] Glucose [Mass/Vol] 115 mg/dL High 70-105 [facility] Comment on above: Order Comment: Waive d Testing in the ED is performed under the ED CLIA certificate #[id number]. Result Comment: besc obe Performed By: #### L [id number] #### [facility] ([facility]) [address] [place] [address] Glucose [Mass/Vol] 99 mg/dL Normal 70-105 [facility] Comment on above: Order Comment: DRAW Q 3 MONTHS MAY, August, November, FEBRUARY Result Comment: besc obe Performed By: #### L [id number] #### [facility] ([facility]) [address] [place] [address] Glucose [Mass/Vol] 141 mg/dL High 70-105 [facility] Comment on above: Order Comment: DRAW Q 3 MONTHS MAY, August, November, FEBRUARY Result Comment: ladarius al Performed By: #### L [id number] #### [facility] ([facility]) [address] [place] [address] PROTEIN, URINE, RANDOMon Protein (U) [Mass/Vol] 47.2 mg/dL Normal [facility] Comment on above: Result Comment: Ther e are no established reference values for random urine specimens. Performed By: #### L [id number] ####[facility] ([facility])[address] [address] PROTIME-INRon 04-28-2023 INR IN PPP BY COAGULATION ASSAY 1.13 High 0.90-1.10 [facility] Comment on above: Result Comment: ACCC [...] 1995;108:[id number]. Performed By: #### L [id number] #### [facility] ([facility]) [address] [place] [address] PROTHROMBIN TIME (PT) IN PPP BY COAGULATION ASSAY 14.5 Seconds Normal 12.3-14.8 [facility] Comment on above: Performed By: #### L [id number] #### [facility] ([facility]) [address] [facility] [place] [address] PTH, INTACTon 04-28-2023 PARATHYRIN INTACT (PG/ML) IN SER/PLAS 48 pg/mL Normal [facility] Comment on above: Performed By: #### L [id number] #### [facility] ([facility]) [address] [facility] [place] [address] SODIUM, URINE, RANDOMon 04-11 Sodium (U) [Moles/Vol] 35 mmol/L Normal [facility] Comment on above: Performed By: #### L [id number] #### [facility] ([facility]) [address] [facility] [place] [address] TACROLIMUS LEVELon Tacrolimus (Bld) [Mass/Vol] 11.6 ng/mL Normal 5.0-20.0 [facility] Comment on above: Result Comment: The [employer] Tacrolimus assay is a delayed one-step immunoassay for the quantitative determination of tacrolimus in human whole blood using the chemiluminescent microparticle immunoassay (CMIA) technology with flexible assay protocols, referred to as Chemiflex. Performed By: #### L [id number] #### [facility] ([facility]) [address] [facility] [place] [address] TROPONIN Ion 04-28-2023 Troponin I.cardiac [Mass/Vol] 0.04 ng/mL Normal 0.00-0.04 [facility] Comment on above: Performed By: #### L [id number] ####[facility] ([facility] [place] [address] Troponin I.cardiac [Mass/Vol] 0.02 ng/mL Normal 0.00-0.04 [facility] Comment on above: Performed By: #### L [id number] ####[facility] ([facility])[address] [place] [address] Troponin I.cardiac [Mass/Vol] 0.02 ng/mL Normal 0.00-0.04 [facility] Comment on above: Performed By: #### L [id number] ####[facility] ([facility])[address] [place] [address] URINALYSIS MICROSCOPIC WITH REFLEX CULTUREon 04-28-2023 CASTS IN URINE Normal [facility] Comment on above: Performed By: #### L [id number] #### [facility] ([facility]) [address] [place] [address] CRYSTALS IN URINE Normal [facility] Comment on above: Performed By: #### L [id number] #### [facility] ([facility]) [address] [place] [address] OTHER MICROSCOPIC ELEMENTS Normal [facility] Comment on above: Performed By: #### L [id number] #### [facility] ([facility]) [address] [place] [address] RBC (#/HPF) IN URINE SEDIMENT 21-50 Abnormal None Seen [facility] Comment on above: Performed By: #### L [id number] #### [facility] ([facility] [address] [place] [address] SQUAMOUS EPITHELIAL CELLS (#/HPF) IN URINE SEDIMENT Occasional Normal None Seen, Occasional [facility] Comment on above: Performed By: #### L [id number] #### [facility] ([facility]) [address] [place] [address] WBC (LEUKOCYTE) (#/HPF) IN URINE SEDIMENT 6-10 Abnormal None Seen [facility] Comment on above: Performed By: #### L [id number] #### [facility] ([facility]) [address] [place] [address] URINALYSIS WITH REFLEX CULTU REon 04-28-2023 BILIRUBIN, TOTAL PRESENCE IN URINE Negative Normal Negative [facility] Comment on above: Performed By: #### L [id number] ####[facility] ([facility])[address] [place] [address] Clarity (U) Clear Normal Clear [facility] Comment on above: Performed By: #### L [id number] ####[facility] ([facility])[address] [place] [address] Color (U) Yellow Normal Yellow [facility] Comment on above: Performed By: #### L [id number] ####[facility] ([facility])[address] [place] [address] Glucose (U) [Mass/Vol] Negative Normal Negative [facility] Comment on above: Performed By: #### L [id number] ####[facility] ([facility])[address] [place] [address] HEMOGLOBIN PRESENCE IN URINE Moderate Abnormal Negative [facility] Comment on above: Performed By: #### L [id number] ####[facility] ([facility])[address] [place] [address] Ketones Ql (U) 20 mg/dL Abnormal Negative [facility] Comment on above: Performed By: #### L [id number] ####[facility] ([facility])[address] [place] [address] LEUKOCYTE ESTERASE PRESENCE IN URINE BY TEST STRIP Trace Abnormal Negative [facility] Comment on above: Performed By: #### L [id number] ####[facility] ([facility])[address] [place] [address] NITRITE PRESENCE IN URINE Negative Normal Negative [facility] Comment on above: Performed By: #### L [id number] ####[facility] ([facility])[address] [place] [address] pH (U) 5.0 [pH] Normal 5.0-8.0 [facility] Comment on above: Performed By: #### L [id number] ####[facility] ([facility]GE)[address] [place] [address] Protein (U) [Mass/Vol] 30 mg/dL Abnormal Negative [facility] Comment on above: Performed By: #### L [id number] ####[facility] ([facility])[address] [place] [address] Specific gravity (U) [Rel density] 1.015 Normal 1.015-1.020 [facility] Comment on above: Performed By: #### L [id number] ####[facility] ([facility])[address] [place] [address] Office Visiton 04-22-2023 Follow-up visit [id number] Roger Suarez 1950 M Date Provider Department Center 04/22/2023 BENJA FIGUEROA [facility] [employer] [facility] Family History Problem Relation Age of Onset Diabetes Mother Hypertension Mother Coronary artery disease Mother Other Mother Cystic kidney disease Mother Hypertension Father Skin cancer Father Cystic kidney disease Father Cystic kidney disease Sister Heart disease Brother ALS Brother Cystic kidney disease Brother Family Status - Relation Status Age at Mother Father Sister Brother Level of Service:04442 IA OFFICE/OUTPATIENT ESTABLISHED LOW MDM 20-29 MIN Normal [facility] Documentationon 04-07-2023 Documentation [id number] Roger Suarez 1950 M Date Provider Department Center 04/07/2023 [facility] None Family History Problem Relation Age of Onset Diabetes Mother Hypertension Mother Coronary artery disease Mother Other Mother Cystic kidney disease Mother Hypertension Father Skin cancer Father Cystic kidney disease Father Cystic kidney disease Sister Heart disease Brother ALS Brother Cystic kidney disease Brother Family Status - Relation Status Age at Mother Father Sister Brother Normal [facility] Orders Onlyon 04-02-2023 Orders Only [id number] Roger Suarez 1950 M Date Provider Department [...] Age at Mother Father Sister Brother Normal [facility] 29on 11-11-2022 30 Addended by: DI GALLO on: 11/11/2022 12:52 PM Modules accepted: Orders Normal [facility] BILIRUBIN, DIRECTon 11-12-19 23 Magnesium [Mass/Vol] 0.1 mg/dL Normal 0-0.2 [facility] Comment on above: Performed By: #### L [id number] #### [facility] ([facility]) [address] [place] [address] BK VIRUS, PLASMA, QUANTITATI VEon 11-11-2022 BK QUANTITATION Not detected Normal [facility] Comment on above: Order Comment: DRAW Q 3 MONTHS MAY, August, November, FEBRUARY Result Comment: Meth od: BK virus was measured by quantitative polymerase chain reaction using a fluorescent hydrolysis probe targeting the polyomavirus BK MIDDLEWARE DEVELOPER-1 gene. The lower limit of quantitation of the assay is 500 copies of BK genome per milliliter of plasma or urine, and any detectable BK DNA below that level is reported as: Detected, <500 copies/ml. Serial BK virus measurement can be used to monitor disease activity. (Reference: Katina ramirezl. J CLIN MICRO 2004; 42:5612-6232). This test was developed and its performance characteristics determined by the [facility]. It has not been approved by the [place] Food and Drug Administration. However, such approval is not required for clinical implementation, and test results have been shown to be clinically useful. This laboratory is CAP accredited and CLIA certified to perform high complexity testing. Performed By: #### L [id number] #### [facility] ([facility]) [address] [place] [address] BK QUANTITATION LOG Not detected Normal Not Detected [facility] Comment on above: Order Comment: DRAW Q 3 MONTHS MAY, August, November, FEBRUARY Performed By: #### L [id number] #### [facility] ([facility]) [address] [place] [address] CBC WITH AUTO DIFFERENTIALon 11-11-2022 Basophils (Bld) [#/Vol] 0.02 10*3/uL Normal 0.00-0.20 [facility] Comment on above: Performed By: #### L [id number] #### [facility] ([facility]) [address] [place] [address] Basophils/100 WBC (Bld) 0.3 % Normal 0.0-1.0 [facility] Comment on above: Performed By: #### L [id number] #### [facility] ([facility]) [address] [place] [address] Eosinophils (Bld) [#/Vol] 0.09 10*3/uL Normal 0.00-0.50 [facility] Comment on above: Performed By: #### L [id number] #### [facility] ([facility]) [address] [place] [address] Eosinophils/100 WBC (Bld) 1.5 % Normal 0.0-6.0 [facility] Comment on above: Performed By: #### L [id number] #### [facility] ([facility]) [address] [place] [address] Erythrocyte distribution width (RBC) [Ratio] 13.2 % Normal 11.5-15.0 [facility] Comment on above: Performed By: #### L [id number] #### [facility] ([facility]) [address] [place] [address] ERYTHROCYTE MEAN CORPUSCULAR HEMOGLOBIN CONCENTRATION (G/DL) BY AUTOMATED 32.9 g/dL Normal 32.0-35.0 [facility] Comment on above: Performed By: #### L [id number] #### [facility] ([facility]) [address] [place] [address] Hematocrit (Bld) [Volume fraction] 35.9 % Low 39.0-55.0 [facility] Comment on above: Performed By: #### L [id number] #### [facility] ([facility] [address] [place] [address] Hemoglobin (Bld) [Mass/Vol] 11.8 g/dL Low 13.0-17.0 [facility] Comment on above: Performed By: #### L [id number] #### [facility] ([facility]) [address] [place] [address] Immature granulocytes (Bld) [#/Vol] 0.07 10*3/uL Normal 0.00-0.20 [facility] Comment on above: Performed By: #### L [id number] #### [facility] ([facility] [address] [place] [address] Immature granulocytes/100 WBC (Bld) 1.2 % High 0.0-1.0 [facility] Comment on above: Performed By: #### L [id number] #### [facility] ([facility]) [address] [place] [place] [address] Lymphocytes (Bld) [#/Vol] 0.96 10*3/uL Low 1.20-4.00 [facility] Comment on above: Performed By: #### L [id number] #### [facility] ([facility]) [address] [place] [address] Lymphocytes/100 WBC (Bld) 16.4 % Low 20.0-45.0 [facility] Comment on above: Performed By: #### L [id number] #### [facility] ([facility] [address] [place] [address] MCH (RBC) [Entitic mass] 28.6 pg Normal 27.0-33.0 [facility] Comment on above: Performed By: #### L [id number] #### [facility] ([facility]) [address] [place] [address] MCV (RBC) [Entitic vol] 86.9 fL Normal 82.0-98.0 [facility] Comment on above: Performed By: #### L [id number] #### [facility] ([facility]) [address] [place] [address] Monocytes (Bld) [#/Vol] 0.61 10*3/uL Normal 0.10-1.00 [facility] Comment on above: Performed By: #### L [id number] #### [facility] ([facility]) [address] [place] [address] Monocytes/100 WBC (Bld) 10.4 % Normal 5.0-12.0 [facility] Comment on above: Performed By: #### L [id number] #### [facility] ([facility]) [address] [place] [address] Neutrophils (Bld) [#/Vol] 4.12 10*3/uL Normal 1.60-7.60 [facility] Comment on above: Performed By: #### L [id number] #### [facility] ([facility]) [address] [place] [address] Neutrophils/100 WBC (Bld) 70.2 % Normal 40.0-72.0 [facility] Comment on above: Performed By: #### L [id number] #### [facility] ([facility]) [address] [place] [address] NRBC (PER 100 WBCS) BY AUTOMATED COUNT 0.0 % Normal 0 [facility] Comment on above: Performed By: #### L [id number] #### [facility] ([facility]) [address] [place] [address] PLATELETS (10*3/UL) IN BLOOD AUTOMATED COUNT 232 10*3/uL Normal 150-400 [facility] Comment on above: Performed By: #### L [id number] #### [facility] ([facility]) [address] [place] [address] RBC (Bld) [#/Vol] 4.13 10*6/uL Low 4.20-5.70 [facility] Comment on above: Performed By: #### L [id number] #### [facility] ([facility]) [address] [place] [address] WBC (Bld) [#/Vol] 5.87 10*3/uL Normal 4.00-10.60 [facility] Comment on above: Performed By: #### L [id number] #### [facility] ([facility]) [address] [place] [address] COMPREHENSIVE METABOLIC PANE Claudio 11-11-2022 Albumin [Mass/Vol] 4.5 g/dL Normal 3.5-5.7 [facility] Comment on above: Performed By: #### L [id number] #### [facility] ([facility]) [address] [place] [address] ALP [Catalytic activity/Vol] 131 U/L High 34-104 [facility] Comment on above: Performed By: #### L [id number] #### [facility] ([facility]) [address] [place] [address] ALT [Catalytic activity/Vol] 16 U/L Normal 7-52 [facility] Comment on above: Performed By: #### L [id number] #### [facility] ([facility]) [address] [place] [address] Anion gap [Moles/Vol] 14 mmol/L Normal 7-20 [facility] Comment on above: Performed By: #### L [id number] #### [facility] ([facility]) [address] [place] [address] AST [Catalytic activity/Vol] 17 U/L Normal 13-39 [facility] Comment on above: Performed By: #### L [id number] #### [facility] ([facility]) [address] [place] [address] Bilirubin [Mass/Vol] 0.4 mg/dL Normal 0.3-1.0 [facility] Comment on above: Performed By: #### L [id number] #### [facility] ([facility]) [address] [place] [address] Calcium [Mass/Vol] 8.0 mg/dL Low 8.6-10.3 [facility] Comment on above: Performed By: #### L [id number] #### [facility] ([facility]) [address] [place] [address] Chloride [Moles/Vol] 95 mmol/L Low 98-107 [facility] Comment on above: Performed By: #### L [id number] #### [facility] ([facility]) [address] [place] [address] CO2 [Moles/Vol] 24 mmol/L Normal 21-31 [facility] Comment on above: Performed By: #### L [id number] #### [facility] ([facility]) [address] [place] [address] Creatinine [Mass/Vol] 1.03 mg/dL Normal 0.70-1.30 [facility] Comment on above: Performed By: #### L [id number] #### [facility] ([facility]) [address] [place] [address] GLOMERULAR FILTRATION RATE ML/MIN/1.73 SQ M.PREDICTED 78.1 mL/min/1.73m*2 Normal >60.[address] [facility] Comment on above: Result Comment: [facility]???s estimated glomerular filtration rate (eGFR) will [...] individuals. Performed By: #### L [id number] #### [facility] ([facility]) [address] [place] [address] Glucose [Mass/Vol] 202 mg/dL High 70-100 [facility] Comment on above: Performed By: #### L [id number] #### [facility] ([facility]) [address] [place] [address] Potassium [Moles/Vol] 4.6 mmol/L Normal 3.5-5.1 [facility] Comment on above: Performed By: #### L [id number] #### [facility] ([facility]) [address] [place] [address] Protein [Mass/Vol] 6.7 g/dL Normal 6.0-8.3 [facility] Comment on above: Performed By: #### L [id number] #### [facility] ([facility]) [address] [place] [address] Sodium [Moles/Vol] 128 mmol/L Low 136-145 [facility] Comment on above: Performed By: #### L [id number] #### [facility] ([facility]) [address] [place] [address] Urea nitrogen [Mass/Vol] 11 mg/dL Normal 7-25 [facility] Comment on above: Performed By: #### L [id number] #### [facility] ([facility] [facility] [address] [place] [address] UREA NITROGEN/CREATININE (MASS RATIO) IN SER/PLAS 10.7 Normal [facility] Comment on above: Performed By: #### L [id number] #### [facility] ([facility]) [address] [place] [address] Documentationon 11-11-2022 Documentation [id number] Roger Suarez 1950 M Date Provider Department Center 11/11/2022 1971-LINK SUAREZ TXP None Family History Problem Relation Age of Onset Diabetes Mother Hypertension Mother Coronary artery disease Mother Other Mother Cystic kidney disease Mother Hypertension Father Skin cancer Father Cystic kidney disease Father Cystic kidney disease Sister Heart disease Brother ALS Brother Cystic kidney disease Brother Family Status - Relation Status Age at Mother Father Sister Brother Normal [facility] Documentation [id number] Roger Suarez 1950 M Date Provider Department [...] Age at Mother Father Sister Brother Normal [facility] Follow-Upon 11-11-2022 Follow-Up [id number] Roger Suarez 1950 M Date Provider Department Center 11/11/2022 Shaylee-JERICHO ABAD None Family History Problem Relation Age of Onset Diabetes Mother Hypertension Mother Coronary artery disease Mother Other Mother Cystic kidney disease Mother Hypertension Father Skin cancer Father Cystic kidney disease Father Cystic kidney disease Sister Heart disease Brother ALS Brother Cystic kidney disease Brother Family Status - Relation Status Age at Mother Father Sister Brother Level of Service:12288 [place] OFFICE/OUTPATIENT ESTABLISHED LOW MDM 20-29 MIN Reason for Visit and Comments: Kidney Follow-up [[id number]] - 6 mo follow No concerns Normal [facility] HEMOGLOBIN A1Con 11-11-2022 Glucose [Mass/Vol] 197 mg/dL Normal [facility] Comment on above: Order Comment: DRAW Q 3 MONTHS MAY, August, November, FEBRUARY Performed By: #### L [id number] #### [facility] ([facility]) [address] [place] [address] HbA1c (Bld) [Mass fraction] 8.5 % High 4.0-6.0 [facility] Comment on above: Order Comment: DRAW Q 3 MONTHS MAY, August, November, FEBRUARY Performed By: #### L [id number] #### [facility] ([facility]) [address] [place] [address] LIPID PANELon 11-11-2022 CHOL/HDL 2.2 mg/dL Normal [facility] Comment on above: Performed By: #### L [id number] #### [facility] ([facility]) [address] [place] [address] Cholesterol [Mass/Vol] 90 mg/dL Low 120-200 [facility] Comment on above: Performed By: #### L [id number] #### [facility] ([facility]) [address] [place] [address] Magnesium [Mass/Vol] 60 mg/dL Normal 40-149 [facility] Comment on above: Result Comment: TRIG LYCERIDE REFERENCE RANGE: 20 YEARS AND OLDER CARDIOVASCULAR RISK LESS THAN 150 mg/dL LOW RISK 150 TO 199 mg/dL BORDERLINE RISK 200 mg/dL AND GREATER HIGH RISK Performed By: #### L [id number] #### [facility] ([facility]) [address] [place] [address] Magnesium [Mass/Vol] 37 mg/dL Normal 0-160 [facility] Comment on above: Performed By: #### L [id number] #### [facility] ([facility]) [address] [place] [address] Magnesium [Mass/Vol] 41 mg/dL Normal 23-92 [facility] Comment on above: Performed By: #### L [id number] #### [facility] ([facility]) [address] [place] [address] NON HDL CHOL. (LDL+VLDL) 49 Normal [facility] Comment on above: Performed By: #### L [id number] #### [facility] ([facility]) [address] [place] [address] TOTAL VLDL-C 12 mg/dL Normal 0-[address] [facility] Comment on above: Performed By: #### L [id number] #### [facility] ([facility]) [address] [place] [address] Labon 11-11-2022 Lab [id number] Roger Suarez 1950 M Date Provider Department Center 11/11/202202668-FPN DRAW STATION KXT Draw [facility] Family History Problem Relation Age of Onset Diabetes Mother Hypertension Mother Coronary artery disease Mother Other Mother Cystic kidney disease Mother Hypertension Father Skin cancer Father Cystic kidney disease Father Cystic kidney disease Sister Heart disease Brother ALS Brother Cystic kidney disease Brother Family Status - Relation Status Age at Mother Father Sister Brother Normal [facility] MAGNESIUMon 11-11-2022 Magnesium [Mass/Vol] 1.3 mg/dL Low 1.9-2.7 [facility] Comment on above: Performed By: #### L [id number] #### [facility] ([facility]) [address] [place] [address] Orders Onlyon 11-11-2022 Orders Only [id number] Roger Suarez Tyson 1950 M Date Provider Department Center 11/11/2022 [...] Age at Mother Father Sister Brother Normal [facility] PHOSPHORUSon 11-11-2022 Magnesium [Mass/Vol] 4.2 mg/dL Normal 2.5-5.0 [facility] Comment on above: Performed By: #### L [id number] #### [facility] ([facility]) [address] [place] [address] TACROLIMUS LEVELon Tacrolimus (Bld) [Mass/Vol] 6.2 ng/mL Normal 5.0-20.0 [facility] Comment on above: Result Comment: DRAW Q 3 MONTHS MAY, August, November, FEBRUARY Performed By: #### L [id number] #### [facility] ([facility]) [address] [place] [address] URIC ACIDon 11-11-2022 Magnesium [Mass/Vol] 6.0 mg/dL Normal 4.4-7.6 [facility] Comment on above: Performed By: #### L [id number] #### [facility] ([facility]) [address] [place] [address] 36on 10-09-2022 36 Per patient he has been getting labs done monthly at [facility]. [employer] called [employer] and spoke with medical records whom state they will fax over labs from May until now. Normal [facility] FK506 (TACROLIMUS) WHOLE BLO ODon 10-06-2022 Tacrolimus (FK506), Blood 3.8 ng/mL Normal 2.0-20.0 [facility] Comment on above: Result Comment: Trou gh (immediately following transplant) 15.0 . Trough (steady state, 2 weeks or more after transplant): 3.0 - 8.0 . Performed by LC-MS/MS technology. Performed By: #### U CLINT, CMP, LIPID, DBIL, PHOS, MG #### [facility] [address] [address] [address] Brea Causey Office Visiton 10-04-2022 Follow-up visit [id number] Roger Suarez 1950 M Date Provider Department Center 10/04/[address] [facility] Family History Problem Relation Age of Onset Diabetes Mother Hypertension Mother Coronary artery disease Mother Other Mother Cystic kidney disease Mother Hypertension Father Skin cancer Father Cystic kidney disease Father Cystic kidney disease Sister Heart disease Brother ALS Brother Cystic kidney disease Brother Family Status - Relation Status Age at Mother Father Sister Brother Level of Service:89118 [place] OFFICE/OUTPATIENT ESTABLISHED MOD MDM 30-39 MIN Reason for Visit and Comments: Coronary Artery Disease [187] Hypertension [200353] Congestive Heart Failure [127] Normal [facility] BILIRUBIN CONJUGATED (DIRECT )on 10-03-2022 BILI, CONJUGATED 0.1 mg/dL Normal 0.0-0.2 [facility] Comment on above: Performed By: #### C BC #### [facility] [address] [place] [address] Dr. Brea Causey CBC AUTO DIFFon 10-03-2022 BASO # 0.0 103/ul Normal 0.0-0.1 [facility] Comment on above: Performed By: #### U CLINT, CMP, LIPID, DBIL, PHOS, MG #### [facility] [address] [place] [address] Dr. Brea Causey Basophils/100 WBC (Bld) 0.5 % Normal 0.2-2.0 [facility] Comment on above: Performed By: #### U CLINT, CMP, LIPID, DBIL, PHOS, MG #### [facility] [address] [place] [address] Dr. Brea Causey EO # 0.1 103/ul Normal 0.0-0.7 [facility] Comment on above: Performed By: #### U CLINT, CMP, LIPID, DBIL, PHOS, MG #### [facility] [address] [place], [place] [id number] Dr. Brea Causey Eosinophils/100 WBC (Bld) 2.3 % Normal 0.9-7.0 [facility] Comment on above: Performed By: #### U CLINT, CMP, LIPID, DBIL, PHOS, MG #### [facility] [address] [place] [address] Dr. Brea Causey Erythrocyte distribution width (RBC) [Ratio] 13.2 % Normal 11.0-15.0 [facility] Comment on above: Performed By: #### U CLINT, CMP, LIPID, DBIL, PHOS, MG #### [facility] [address] [place] [address] Dr. Brea Causey Hematocrit (Bld) [Volume fraction] 35.0 % Critically low 42.0-54.0 [facility] Comment on above: Performed By: #### U CLINT, CMP, LIPID, DBIL, PHOS, MG #### [facility] [address] [place] [address] Dr. Brea Causey Hemoglobin (Bld) [Mass/Vol] 11.7 g/dL Critically low 14.0-18.0 [facility] Comment on above: Performed By: #### U CLINT, CMP, LIPID, DBIL, PHOS, MG #### [facility] [address] [place] [address] Dr. Brea Causey IG # 0.06 10e3/ul Critically high 0.00-0.[address] [facility] Comment on above: Performed By: #### U CLINT, CMP, LIPID, DBIL, PHOS, MG #### [facility] [address] [place] [address] Dr. Brea Causey IG % 1.1 % Critically high 0.0-0.5 [facility] Comment on above: Performed By: #### U CLINT, CMP, LIPID, DBIL, PHOS, MG #### [facility] [address] [place] [address] Dr. Brea Causey LYMPH # 0.8 103/ul Critically low 1.2-3.8 [facility] Comment on above: Performed By: #### U CLINT, CMP, LIPID, DBIL, PHOS, MG #### [facility] [address] [address] [address] Brea Causey Lymphocytes/100 WBC (Bld) 14.9 % Critically low 20.5-60.0 [facility] Comment on above: Performed By: #### U CLINT, CMP, LIPID, DBIL, PHOS, MG #### [facility] [address] [address] [address] Brea Causey MANUAL DIFF REQ NO Normal [facility] Comment on above: Performed By: #### U CLINT, CMP, LIPID, DBIL, PHOS, MG #### [facility] [address] [place] [address] Dr. Brea Causey MCH (RBC) [Entitic mass] 28.8 pg Normal 25.9-34.0 [facility] Comment on above: Performed By: #### U CLINT, CMP, LIPID, DBIL, PHOS, MG #### [facility] [address] [place] [address] Dr. Brea Causey MCHC (RBC) [Mass/Vol] 33.4 g/dL Normal 29.9-35.2 [facility] Comment on above: Performed By: #### U CLINT, CMP, LIPID, DBIL, PHOS, MG #### [facility] [address] [place] [address] Dr. Brea Causey MCV (RBC) [Entitic vol] 86.2 fL Normal 80.0-94.0 [facility] Comment on above: Performed By: #### U CLINT, CMP, LIPID, DBIL, PHOS, MG #### [facility] [address] [place] [address] Dr. Brea Causey MONO # 0.5 103/ul Normal 0.3-0.8 [facility] Comment on above: Performed By: #### U CLINT, CMP, LIPID, DBIL, PHOS, MG #### [facility] [address] [place] [address] Dr. Brea Causey Monocytes/100 WBC (Bld) 9.1 % Normal 1.7-12.0 [facility] Comment on above: Performed By: #### U CLINT, CMP, LIPID, DBIL, PHOS, MG #### [facility] [address] [address] [address] Brea Causey NEUT # 4.1 103/ul Normal 1.4-6.5 [facility] Comment on above: Performed By: #### U CLINT, CMP, LIPID, DBIL, PHOS, MG #### [facility] [address] [address] [address] Bera Causey Neutrophils/100 WBC (Bld) 72.1 % Normal 43.0-75.0 [facility] Comment on above: Performed By: #### U CLINT, CMP, LIPID, DBIL, PHOS, MG #### [facility] [address] [address] [address] Brea Causey Platelet mean volume (Bld) [Entitic vol] 9.0 fL Critically low 9.5-13.5 [facility] Comment on above: Performed By: #### U CLINT, CMP, LIPID, DBIL, PHOS, MG #### [facility] [address] [address] [address] Brea Causey PLT 211 103/ul Normal 150-450 [facility] Comment on above: Performed By: #### U CLINT, CMP, LIPID, DBIL, PHOS, MG #### [facility] [address] [address] [address] Brea Causey RBC 4.06 106/ul Critically low 4.70-6.10 [facility] Comment on above: Performed By: #### U CLINT, CMP, LIPID, DBIL, PHOS, MG #### [facility] [address] [address] [address] Brea Causey WBC 5.6 103/ul Normal 4.0-11.0 [facility] Comment on above: Performed By: #### U CLINT, CMP, LIPID, DBIL, PHOS, MG #### [facility] [address] [address] [address] Brea Causey LIPID PROFILEon 10-03-2022 CHOL-HDL RATIO NORM SEE BELOW Normal [facility] Comment on above: Result Comment: 3.3 - 4.4 LOW RISK 4.4 - 7.1 AVERAGE RISK 7.1 - 11.0 MODERATE RISK >11.0 HIGH RISK Performed By: #### C BC #### [facility] [address] [address] [address] Brea Causey Cholesterol [Mass/Vol] 93 mg/dL Normal <=200 [facility] Comment on above: Performed By: #### C BC #### [facility] [address] [address] [address] Brea Causey Cholesterol in HDL [Mass/Vol] 43 mg/dL Normal 40-60 [facility] Comment on above: Performed By: #### C BC #### [facility] [address] [address] [address] Brea Causey Cholesterol in LDL [Mass/Vol] 37.6 mg/dL Normal [facility] Comment on above: Performed By: #### C BC #### [facility] [address] [address] [address] Brea Causey Cholesterol.total/Cho lesterol in HDL [Mass ratio] 2.2 {ratio} Normal [facility] Comment on above: Performed By: #### C BC #### [facility] [address] [place] [address] Dr. Brea Causey HDL NORMAL > or = 60 mg/dl - LO W CARDIOVASCULAR RISK <40 mg/dl - HIGH CARDIOVASCULAR RISK Normal [facility] Comment on above: Performed By: #### C BC #### [facility] [address] [address] [address] Brea Causey LDL CALC NORMAL SEE BELOW Normal [facility] Comment on above: Result Comment: <100 mg/dl OPTIMAL 100 - 129 mg/dl NEAR OR ABOVE OPTIMAL 130 - 159 mg/dl BORDERLINE HIGH 160 - 189 mg/dl HIGH >190 mg/dl VERY HIGH Performed By: #### C BC #### [facility] [address] [address] [address] Brea Causey Triglyceride [Mass/Vol] 62 mg/dL Normal <=150 [facility] Comment on above: Performed By: #### C BC #### [facility] [address] [place] [address] Dr. Brea Causey VLDL CALC 12.4 mg/dL Normal [facility] Comment on above: Performed By: #### C BC #### [facility] [address] [place] [address] Dr. Brea Causey MAGNESIUMon 10-03-2022 Magnesium [Mass/Vol] 1.5 mg/dL Critically low 1.8-2.4 [facility] Comment on above: Performed By: #### C BC #### [facility] [address] [place] [address] Dr. Brea Causey PHOSPHORUSon 10-03-2022 Phosphate [Mass/Vol] 4.4 mg/dL Normal 2.6-4.7 [facility] Comment on above: Performed By: #### C BC #### [facility] [address] [place] [address] Dr. Brea Causey PROF 14(COMP METB)on 023 Albumin [Mass/Vol] 3.8 g/dL Normal 3.4-5.[address] [facility] Comment on above: Performed By: #### C BC #### [facility] [address] [place] [address] Dr. Brea Causey Albumin/Globulin [Mass ratio] 1.1 {ratio} Normal [facility] Comment on above: Performed By: #### C BC #### [facility] [address] [place] [address] Dr. Brea Causey ALP [Catalytic activity/Vol] 190 U/L Critically high 46-116 [facility] Comment on above: Performed By: #### C BC #### [facility] [address] [place] [address] Dr. Brea Causey ALT [Catalytic activity/Vol] 26 U/L Normal 16-63 [facility] Comment on above: Performed By: #### C BC #### [facility] [address] [place] [address] Dr. Brea Causey Anion gap [Moles/Vol] 15.3 mmol/L Normal [facility] Comment on above: Performed By: #### C BC #### [facility] [address] [address] [address] Brea Causey AST [Catalytic activity/Vol] 23 U/L Normal 15-37 [facility] Comment on above: Performed By: #### C BC #### [facility] [address] [address] [address] Brea Causey Bilirubin [Mass/Vol] 0.4 mg/dL Normal 0.2-1.0 [facility] Comment on above: Performed By: #### C BC #### [facility] [address] [address] [address] Brea Causey Calcium [Mass/Vol] 7.8 mg/dL Critically low 8.5-10.1 [facility] Comment on above: Performed By: #### C BC #### [facility] [address] [address] [address] Brea Causey Chloride [Moles/Vol] 97 mmol/L Critically low 98-107 [facility] Comment on above: Performed By: #### C BC #### [facility] [address] [address] [address] Brea Causey CO2 [Moles/Vol] 25.6 mmol/L Normal 21.0-32.0 [facility] Comment on above: Performed By: #### C BC #### [facility] [address] [address] [address] Brea Causey Creatinine [Mass/Vol] 1.03 mg/dL Normal 0.70-1.30 [facility] Comment on above: Performed By: #### C BC #### [facility] [address] [address] [address] Brea Causey EGFR-AF MARSHALLESE >60 Normal >=60 [facility] Comment on above: Performed By: #### C BC #### [facility] [address] [id number] [address] Brea Causey EGFR-NON AF MARSHALLESE >60 Normal >=60 [facility] Comment on above: Performed By: #### C BC #### [facility] [address] [address] [address] Brea Causey Globulin (S) [Mass/Vol] 3.6 g/dL Normal [facility] Comment on above: Performed By: #### C BC #### [facility] [address] [address] [address] Brea Causey Glucose [Mass/Vol] 188 mg/dL Critically high 74-106 [facility] Comment on above: Performed By: #### C BC #### [facility] [address] [address] [address] Brea Causey Potassium [Moles/Vol] 4.9 mmol/L Normal 3.5-5.1 [facility] Comment on above: Performed By: #### C BC #### [facility] [address] [place] [address] Dr. Brea Causey Protein [Mass/Vol] 7.4 g/dL Normal 6.4-8.[address] [facility] Comment on above: Performed By: #### C BC #### [facility] [address] [place] [address] Dr. Brea Causey Sodium [Moles/Vol] 133 mmol/L Critically low 136-145 Th [facility] Comment on above: Performed By: #### C BC #### [facility] [address] [place] [address] Dr. Brea Causey Urea nitrogen [Mass/Vol] 11.0 mg/dL Normal 7.0-18.0 [facility] Comment on above: Performed By: #### C BC #### [facility] [address] [place] [address] Dr. Brea Causey Urea nitrogen/Creatinine [Mass ratio] 10.7 mg/mg Normal [facility] Comment on above: Performed By: #### C BC #### [facility] [address] [place] [address] Dr. Brea Causey URIC ACID SERUMon 10-03-2022 Urate [Mass/Vol] 5.7 mg/dL Normal 3.5-7.2 [facility] Comment on above: Performed By: #### C BC #### [facility] [address] [place] [address] Dr. Brea Causey BK VIRUS PCR QUANTon 023 BKV DNA QUANT PCR PLASMA Negative Normal Negative [facility] Comment on above: Result Comment: No B K DNA detected. . The linear range of the assay is 22 - 100,000,000 IU/mL. Performed By: #### U CLINT, CMP, LIPID, DBIL, PHOS, MG #### [facility] [address] [address] [address] Brea Causey Log10 BKV DNA Plasma Normal [facility] Comment on above: Performed By: #### U CLINT, CMP, LIPID, DBIL, PHOS, MG #### [facility] [address] [place] [address] Dr. Brea Causey FK506 (TACROLIMUS) WHOLE BLO ODon 09-02-2022 Tacrolimus (FK506), Blood 3.8 ng/mL Normal 2.0-20.0 [facility] Comment on above: Result Comment: Trou gh (immediately following transplant) 15.0 . Trough (steady state, 2 weeks or more after transplant): 3.0 - 8.0 . Performed by LC-MS/MS technology. Performed By: #### U CLINT, CMP, LIPID, DBIL, PHOS, MG #### [facility] [address] [place] [address] Dr. Brea Causey [facility] Free Testosterone(Direct) 9.7 pg/mL Normal 6.6-18.1 [facility] Comment on above: Result Comment: Perf ormed at: BN Performed By: #### U CLINT, CMP, LIPID, DBIL, PHOS, MG #### [facility] [address] [place] [address] Dr. Brea Causey Testosterone [Mass/Vol] 565 ng/dL Normal 264-916 [facility] Comment on above: Result Comment: Adul t male reference interval is based on a population of healthy nonobese males (BMI <30) between 19 and 39 years old. daniel Harris.al. JCEM 2017,102;4113-5770. PMID: [id number]. Performed at: CB Performed By: #### U CLINT, CMP, LIPID, DBIL, PHOS, MG #### [facility] [address] [place] [address] Dr. Brea Causey BILIRUBIN CONJUGATED (DIRECT )on 08-30-2022 BILI, CONJUGATED 0.1 mg/dL Normal 0.0-0.2 [facility] Comment on above: Performed By: #### U CLINT, CMP, LIPID, DBIL, PHOS, MG #### [facility] [facility] [address] [place] [address] Dr. Brea Causey CBC AUTO DIFFon 08-30-2022 BASO # 0.0 103/ul Normal 0.0-0.1 [facility] Comment on above: Performed By: #### U CLINT, CMP, LIPID, DBIL, PHOS, MG #### [facility] [address] [place] [address] Dr. Brea Causey Basophils/100 WBC (Bld) 0.7 % Normal 0.2-2.0 [facility] Comment on above: Performed By: #### U CLINT, CMP, LIPID, DBIL, PHOS, MG #### [facility] [address] [place] [address] Dr. Brea Causey EO # 0.2 103/ul Normal 0.0-0.7 [facility] Comment on above: Performed By: #### U CLINT, CMP, LIPID, DBIL, PHOS, MG #### [facility] [address] [place] [address] Dr. Brea Causey Eosinophils/100 WBC (Bld) 3.6 % Normal 0.9-7.0 [facility] Comment on above: Performed By: #### U CLINT, CMP, LIPID, DBIL, PHOS, MG #### [facility] [address] [place] [address] Dr. Brea Causey Erythrocyte distribution width (RBC) [Ratio] 13.2 % Normal 11.0-15.0 [facility] Comment on above: Performed By: #### U CLINT, CMP, LIPID, DBIL, PHOS, MG #### [facility] [address] [address] [address] Brea Causey Hematocrit (Bld) [Volume fraction] 36.0 % Critically low 42.0-54.0 [facility] Comment on above: Performed By: #### U CLINT, CMP, LIPID, DBIL, PHOS, MG #### [facility] [address] [place] [address] Dr. Brea Causey Hemoglobin (Bld) [Mass/Vol] 12.2 g/dL Critically low 14.0-18.0 [facility] Comment on above: Performed By: #### U CLINT, CMP, LIPID, DBIL, PHOS, MG #### [facility] [address] [place] [address] Dr. Brea Causey IG # 0.07 10e3/ul Critically high 0.00-0.03 [facility] Comment on above: Performed By: #### U CLINT, CMP, LIPID, DBIL, PHOS, MG #### [facility] [address] [place] [address] Dr. Brea Causey IG % 1.2 % Critically high 0.0-0.5 [facility] Comment on above: Performed By: #### U CLINT, CMP, LIPID, DBIL, PHOS, MG #### [facility] [address] [place] [address] Dr. Brea Causey LYMPH # 0.9 103/ul Critically low 1.2-3.8 [facility] Comment on above: Performed By: #### U CLINT, CMP, LIPID, DBIL, PHOS, MG #### [facility] [address] [place] [address] Dr. Brea Causey Lymphocytes/100 WBC (Bld) 15.0 % Critically low 20.5-60.0 [facility] Comment on above: Performed By: #### U CLINT, CMP, LIPID, DBIL, PHOS, MG #### [facility] [address] [place] [address] Dr. Brea Causey MANUAL DIFF REQ NO Normal [facility] Comment on above: Performed By: #### U CLINT, CMP, LIPID, DBIL, PHOS, MG #### [facility] [address] [place] [address] Dr. Brea Causey MCH (RBC) [Entitic mass] 29.4 pg Normal 25.9-34.0 [facility] Comment on above: Performed By: #### U CLINT, CMP, LIPID, DBIL, PHOS, MG #### [facility] [address] [place] [address] Dr. Brea Causey MCHC (RBC) [Mass/Vol] 33.9 g/dL Normal 29.9-35.2 [facility] Comment on above: Performed By: #### U CLINT, CMP, LIPID, DBIL, PHOS, MG #### [facility] [address] [place] [address] Dr. Brea Causey MCV (RBC) [Entitic vol] 86.7 fL Normal 80.0-94.0 [facility] Comment on above: Performed By: #### U CLINT, CMP, LIPID, DBIL, PHOS, MG #### [facility] [address] [place] [address] Dr. Brea Causey MONO # 0.5 103/ul Normal 0.3-0.8 [facility] Comment on above: Performed By: #### U CLINT, CMP, LIPID, DBIL, PHOS, MG #### [facility] [address] [place] [address] Dr. Brea Causey Monocytes/100 WBC (Bld) 9.0 % Normal 1.7-12.0 [facility] Comment on above: Performed By: #### U CLINT, CMP, LIPID, DBIL, PHOS, MG #### [facility] [address] [place] [address] Dr. Brea Causey NEUT # 4.2 103/ul Normal 1.4-6.5 [facility] Comment on above: Performed By: #### U CLINT, CMP, LIPID, DBIL, PHOS, MG #### [facility] [address] [place] [address] Dr. Brea Causey Neutrophils/100 WBC (Bld) 70.5 % Normal 43.0-75.0 [facility] Comment on above: Performed By: #### U CLINT, CMP, LIPID, DBIL, PHOS, MG #### [facility] [address] [address] [address] Brea Causey Platelet mean volume (Bld) [Entitic vol] 8.7 fL Critically low 9.5-13.5 [facility] Comment on above: Performed By: #### U CLINT, CMP, LIPID, DBIL, PHOS, MG #### [facility] [address] [address] [address] Brea Causey PLT 247 103/ul Normal 150-450 [facility] Comment on above: Performed By: #### U CLINT, CMP, LIPID, DBIL, PHOS, MG #### [facility] [address] [address] [address] Brea Causey RBC 4.15 106/ul Critically low 4.70-6.10 [facility] Comment on above: Performed By: #### U CLINT, CMP, LIPID, DBIL, PHOS, MG #### [facility] [address] [place] [address] Dr. Brea Causey WBC 5.9 103/ul Normal 4.0-11.0 [facility] Comment on above: Performed By: #### U CLINT, CMP, LIPID, DBIL, PHOS, MG #### [facility] [address] [place] [address] Dr. Brea Causey GLYCOHEMOGLOBIN A1Con 2022 ADA RECOMMENDATION SEE BELOW Normal [facility] Comment on above: Result Comment: ADA RECOMMENDED LIMIT 4.0 - 6.0 ADA THERAPEUTIC TARGET < 7.0 ACTION SUGGESTED > 7.0 Performed By: #### U CLINT, CMP, LIPID, DBIL, PHOS, MG #### [facility] [address] [address] [address] Brea Causey Glucose [Mass/Vol] 177 mg/dL Normal [facility] Comment on above: Performed By: #### U CLINT, CMP, LIPID, DBIL, PHOS, MG #### [facility] [address] [place] [address] Dr. Brea Causey HbA1c (Bld) [Mass fraction] 7.8 % Critically high 4.5-6.2 [facility] Comment on above: Performed By: #### U CLINT, CMP, LIPID, DBIL, PHOS, MG #### [facility] [address] [address] [address] Brea Causey LIPID PROFILEon 08-30-2022 CHOL-HDL RATIO NORM SEE BELOW Normal [facility] Comment on above: Result Comment: 3.3 - 4.4 LOW RISK 4.4 - 7.1 AVERAGE RISK 7.1 - 11.0 MODERATE RISK >11.0 HIGH RISK Performed By: #### U CLINT, CMP, LIPID, DBIL, PHOS, MG #### [facility] [address] [address] [address] Brea Causey Cholesterol [Mass/Vol] 96 mg/dL Normal <=200 [facility] Comment on above: Performed By: #### U CLINT, CMP, LIPID, DBIL, PHOS, MG #### [facility] [address] [address] [address] Brea Causey Cholesterol in HDL [Mass/Vol] 48 mg/dL Normal 40-60 [facility] Comment on above: Performed By: #### U CLINT, CMP, LIPID, DBIL, PHOS, MG #### [facility] [address] [address] [address] Brea Causey Cholesterol in LDL [Mass/Vol] 40.2 mg/dL Normal [facility] Comment on above: Performed By: #### U CLINT, CMP, LIPID, DBIL, PHOS, MG #### [facility] [address] [address] [address] Brea Causey Cholesterol.total/Cho lesterol in HDL [Mass ratio] 2.0 {ratio} Normal [facility] Comment on above: Performed By: #### U CLINT, CMP, LIPID, DBIL, PHOS, MG #### [facility] [address] [address] [address] Brea Causey HDL NORMAL > or = 60 mg/dl - LO W CARDIOVASCULAR RISK <40 mg/dl - HIGH CARDIOVASCULAR RISK Normal [facility] Comment on above: Performed By: #### U CLINT, CMP, LIPID, DBIL, PHOS, MG #### [facility] [address] [address] [address] Brea Causey LDL CALC NORMAL SEE BELOW Normal [facility] Comment on above: Result Comment: <100 mg/dl OPTIMAL 100 - 129 mg/dl NEAR OR ABOVE OPTIMAL 130 - 159 mg/dl BORDERLINE HIGH 160 - 189 mg/dl HIGH >190 mg/dl VERY HIGH Performed By: #### U CLINT, CMP, LIPID, DBIL, PHOS, MG #### [facility] [address] [address] [address] Brea Causey Triglyceride [Mass/Vol] 39 mg/dL Normal <=150 [facility] Comment on above: Performed By: #### U CLINT, CMP, LIPID, DBIL, PHOS, MG #### [facility] [address] [address] [address] Brea Causey VLDL CALC 7.8 mg/dL Normal [facility] Comment on above: Performed By: #### U CLINT, CMP, LIPID, DBIL, PHOS, MG #### [facility] [address] [address] [address] Brea Causey MAGNESIUMon 08-30-2022 Magnesium [Mass/Vol] 1.5 mg/dL Critically low 1.8-2.4 [facility] Comment on above: Performed By: #### U CLINT, CMP, LIPID, DBIL, PHOS, MG #### [facility] [address] [address] [address] Brea Causey PHOSPHORUSon 08-30-2022 Phosphate [Mass/Vol] 4.0 mg/dL Normal 2.6-4.7 [facility] Comment on above: Performed By: #### U CLINT, CMP, LIPID, DBIL, PHOS, MG #### [facility] [address] [address] [address] Brea Causey PROF 14(COMP METB)on 023 Albumin [Mass/Vol] 3.8 g/dL Normal 3.4-5.[address] [facility] Comment on above: Performed By: #### U CLINT, CMP, LIPID, DBIL, PHOS, MG #### [facility] [address] [address] [address] Brea Causey Albumin/Globulin [Mass ratio] 1.1 {ratio} Normal [facility] Comment on above: Performed By: #### U CLINT, CMP, LIPID, DBIL, PHOS, MG #### [facility] [address] [address] [address] Brea Causey ALP [Catalytic activity/Vol] 177 U/L Critically high 46-116 [facility] Comment on above: Performed By: #### U CLINT, CMP, LIPID, DBIL, PHOS, MG #### [facility] [address] [place] [address] Dr. Brea Causey ALT [Catalytic activity/Vol] 27 U/L Normal 16-63 [facility] Comment on above: Performed By: #### U CLINT, CMP, LIPID, DBIL, PHOS, MG #### [facility] [address] [place] [address] Dr. Brea Causey Anion gap [Moles/Vol] 12.1 mmol/L Normal [facility] Comment on above: Performed By: #### U CLINT, CMP, LIPID, DBIL, PHOS, MG #### [facility] [address] [place] [address] Dr. Brea Causey AST [Catalytic activity/Vol] 19 U/L Normal 15-37 [facility] Comment on above: Performed By: #### U CLINT, CMP, LIPID, DBIL, PHOS, MG #### [facility] [address] [place] [address] Dr. Brea Causey Bilirubin [Mass/Vol] 0.3 mg/dL Normal 0.2-1.0 [facility] Comment on above: Performed By: #### U CLINT, CMP, LIPID, DBIL, PHOS, MG #### [facility] [address] [place] [address] Dr. Brea Causey Calcium [Mass/Vol] 8.0 mg/dL Critically low 8.5-10.1 [facility] Comment on above: Performed By: #### U CLINT, CMP, LIPID, DBIL, PHOS, MG #### [facility] [address] [address] [address] Brea Causey Chloride [Moles/Vol] 96 mmol/L Critically low 98-107 [facility] Comment on above: Performed By: #### U CLINT, CMP, LIPID, DBIL, PHOS, MG #### [facility] [address] [address] [address] Brea Causey CO2 [Moles/Vol] 28.0 mmol/L Normal 21.0-32.0 [facility] Comment on above: Performed By: #### U CLINT, CMP, LIPID, DBIL, PHOS, MG #### [facility] [address] [address] [address] Brea Causey Creatinine [Mass/Vol] 1.07 mg/dL Normal 0.70-1.30 [facility] Comment on above: Performed By: #### U CLINT, CMP, LIPID, DBIL, PHOS, MG #### [facility] [address] [place] [address] Dr. Brea Causey EGFR-AF MARSHALLESE >60 Normal >=60 [facility] Comment on above: Performed By: #### U CLINT, CMP, LIPID, DBIL, PHOS, MG #### [facility] [address] [place] [address] Dr. Brea Causey EGFR-NON AF MARSHALLESE >60 Normal >=60 [facility] Comment on above: Performed By: #### U CLINT, CMP, LIPID, DBIL, PHOS, MG #### [facility] [address] [address] [address] Brea Causey Globulin (S) [Mass/Vol] 3.5 g/dL Normal [facility] Comment on above: Performed By: #### U CLINT, CMP, LIPID, DBIL, PHOS, MG #### [facility] [address] [address] [address] Brea Causey Glucose [Mass/Vol] 179 mg/dL Critically high 74-106 [facility] Comment on above: Performed By: #### U CLINT, CMP, LIPID, DBIL, PHOS, MG #### [facility] [address] [place] [address] Dr. Brea Causey Potassium [Moles/Vol] 5.1 mmol/L Normal 3.5-5.1 [facility] Comment on above: Performed By: #### U CLINT, CMP, LIPID, DBIL, PHOS, MG #### [facility] [address] [place] [address] Dr. Brea Causey Protein [Mass/Vol] 7.3 g/dL Normal 6.4-8.[address] [facility] Comment on above: Performed By: #### U CLINT, CMP, LIPID, DBIL, PHOS, MG #### [facility] [address] [place] [address] Dr. Brea Causey Sodium [Moles/Vol] 131 mmol/L Critically low 136-145 [facility] Comment on above: Performed By: #### U CLINT, CMP, LIPID, DBIL, PHOS, MG #### [facility] [address] [place] [address] Dr. Brea Causey Urea nitrogen [Mass/Vol] 10.0 mg/dL Normal 7.0-18.0 [facility] Comment on above: Performed By: #### U CLINT, CMP, LIPID, DBIL, PHOS, MG #### [facility] [address] [place] [address] Dr. Brea Causey Urea nitrogen/Creatinine [Mass ratio] 9.3 mg/mg Normal [facility] Comment on above: Performed By: #### U CLINT, CMP, LIPID, DBIL, PHOS, MG #### [facility] [address] [place] [address] Dr. Brea Causey URIC ACID SERUMon 08-30-2022 Urate [Mass/Vol] 6.0 mg/dL Normal 3.5-7.2 [facility] Comment on above: Performed By: #### U CLINT, CMP, LIPID, DBIL, PHOS, MG #### [facility] [address] [place] [address] Dr. Brea Causey FK506 (TACROLIMUS) WHOLE BLO ODon 03-25-2023 Tacrolimus (FK506), Blood 3.2 ng/mL Normal 2.0-20.0 [facility] Comment on above: Result Comment: Trou gh (immediately following transplant) 15.0 . Trough (steady state, 2 weeks or more after transplant): 3.0 - 8.0 . Performed by LC-MS/MS technology. Performed By: #### C BC #### [facility] [address] [place] [address] Dr. Brea Causey BILIRUBIN CONJUGATED (DIRECT )on 08-01-2022 BILI, CONJUGATED 0.1 mg/dL Normal 0.0-0.2 [facility] Comment on above: Performed By: #### U CLINT, CMP, LIPID, DBIL, PHOS, MG #### [facility] [address] [place] [address] Dr. Brea Causey CBC AUTO DIFFon 08-01-2022 BASO # 0.0 103/ul Normal 0.0-0.1 [facility] Comment on above: Performed By: #### C BC #### [facility] [address] [place] [address] Dr. Brea Causey Basophils/100 WBC (Bld) 0.7 % Normal 0.2-2.0 [facility] Comment on above: Performed By: #### C BC #### [facility] [address] [place] [address] Dr. Brea Causey EO # 0.1 103/ul Normal 0.0-0.7 [facility] Comment on above: Performed By: #### C BC #### [facility] [address] [place] [address] Dr. Brea Causey Eosinophils/100 WBC (Bld) 2.4 % Normal 0.9-7.0 [facility] Comment on above: Performed By: #### C BC #### [facility] [address] [place] [address] Dr. Brea Causey Erythrocyte distribution width (RBC) [Ratio] 13.3 % Normal 11.0-15.0 [facility] Comment on above: Performed By: #### C BC #### [facility] [address] [address] [address] Brea Causey Hematocrit (Bld) [Volume fraction] 36.5 % Critically low 42.0-54.0 [facility] Comment on above: Performed By: #### C BC #### [facility] [address] [address] [address] Brea Causey Hemoglobin (Bld) [Mass/Vol] 12.1 g/dL Critically low 14.0-18.0 [facility] Comment on above: Performed By: #### C BC #### [facility] [address] [address] [address] Brea Causey IG # 0.07 10e3/ul Critically high 0.00-0.03 [facility] Comment on above: Performed By: #### C BC #### [facility] [address] [place] [address] Dr. Brea Causey IG % 1.2 % Critically high 0.0-0.5 [facility] Comment on above: Performed By: #### C BC #### [facility] [address] [address] [address] Brea Causey LYMPH # 0.9 103/ul Critically low 1.2-3.8 [facility] Comment on above: Performed By: #### C BC #### [facility] [address] [place] [address] Dr. Brea Causey Lymphocytes/100 WBC (Bld) 14.5 % Critically low 20.5-60.0 [facility] Comment on above: Performed By: #### C BC #### [facility] [address] [address] [address] Brea Causey MANUAL DIFF REQ NO Normal [facility] Comment on above: Performed By: #### C BC #### [facility] [address] [address] [address] Brea Causey MCH (RBC) [Entitic mass] 28.8 pg Normal 25.9-34.0 [facility] Comment on above: Performed By: #### C BC #### [facility] [address] [place] [address] Dr. Brea Causey MCHC (RBC) [Mass/Vol] 33.2 g/dL Normal 29.9-35.2 [facility] Comment on above: Performed By: #### C BC #### [facility] [address] [place] [address] Dr. Brea Causey MCV (RBC) [Entitic vol] 86.9 fL Normal 80.0-94.0 [facility] Comment on above: Performed By: #### C BC #### [facility] [address] [place] [address] Dr. Brea Causey MONO # 0.6 103/ul Normal 0.3-0.8 [facility] Comment on above: Performed By: #### C BC #### [facility] [address] [place] [address] Dr. Brea Causey Monocytes/100 WBC (Bld) 10.3 % Normal 1.7-12.0 [facility] Comment on above: Performed By: #### C BC #### [facility] [address] [place] [address] Dr. Brea Causey NEUT # 4.2 103/ul Normal 1.4-6.5 [facility] Comment on above: Performed By: #### C BC #### [facility] [address] [place] [address] Dr. Brea Causey Neutrophils/100 WBC (Bld) 70.9 % Normal 43.0-75.0 [facility] Comment on above: Performed By: #### C BC #### [facility] [address] [place] [address] Dr. Brea Causey Platelet mean volume (Bld) [Entitic vol] 9.1 fL Critically low 9.5-13.5 [facility] Comment on above: Performed By: #### C BC #### [facility] [address] [place] [address] Dr. Brea Causey PLT 248 103/ul Normal 150-450 [facility] Comment on above: Performed By: #### C BC #### [facility] [address] [place] [address] Dr. Brea Causey RBC 4.20 106/ul Critically low 4.70-6.10 [facility] Comment on above: Performed By: #### C BC #### [facility] [address] [address] [address] Brea Causey WBC 5.9 103/ul Normal 4.0-11.0 [facility] Comment on above: Performed By: #### C BC #### [facility] [address] [address] [address] Brea Causey LIPID PROFILEon 08-01-2022 CHOL-HDL RATIO NORM SEE BELOW Normal [facility] Comment on above: Result Comment: 3.3 - 4.4 LOW RISK 4.4 - 7.1 AVERAGE RISK 7.1 - 11.0 MODERATE RISK >11.0 HIGH RISK Performed By: #### U CLINT, CMP, LIPID, DBIL, PHOS, MG #### [facility] [address] [place] [address] Dr. Brea Causey Cholesterol [Mass/Vol] 95 mg/dL Normal <=200 [facility] Comment on above: Performed By: #### U CLINT, CMP, LIPID, DBIL, PHOS, MG #### [facility] [address] [address] [address] Brea Causey Cholesterol in HDL [Mass/Vol] 49 mg/dL Normal 40-60 [facility] Comment on above: Performed By: #### U CLINT, CMP, LIPID, DBIL, PHOS, MG #### [facility] [address] [address] Dr. Brea Causey Cholesterol in LDL [Mass/Vol] 35.4 mg/dL Normal [facility] Comment on above: Performed By: #### U CLINT, CMP, LIPID, DBIL, PHOS, MG #### [facility] [address] [place] [address] Dr. Brea Causey Cholesterol.total/Cho lesterol in HDL [Mass ratio] 1.9 {ratio} Normal [facility] Comment on above: Performed By: #### U CLINT, CMP, LIPID, DBIL, PHOS, MG #### [facility] [address] [address] [address] Brea Causey HDL NORMAL > or = 60 mg/dl - LO W CARDIOVASCULAR RISK <40 mg/dl - HIGH CARDIOVASCULAR RISK Normal [facility] Comment on above: Performed By: #### U CLINT, CMP, LIPID, DBIL, PHOS, MG #### [facility] [address] [address] [address] Brea Causey LDL CALC NORMAL SEE BELOW Normal [facility] Comment on above: Result Comment: <100 mg/dl OPTIMAL 100 - 129 mg/dl NEAR OR ABOVE OPTIMAL 130 - 159 mg/dl BORDERLINE HIGH 160 - 189 mg/dl HIGH >190 mg/dl VERY HIGH Performed By: #### U CLINT, CMP, LIPID, DBIL, PHOS, MG #### [facility] [address] [address] [address] Brea Causey Triglyceride [Mass/Vol] 53 mg/dL Normal <=150 [facility] Comment on above: Performed By: #### U CLINT, CMP, LIPID, DBIL, PHOS, MG #### [facility] [address] [address] [address] Brea Causey VLDL CALC 10.6 mg/dL Normal [facility] Comment on above: Performed By: #### U CLINT, CMP, LIPID, DBIL, PHOS, MG #### [facility] [address] [address] [address] Brea Causey MAGNESIUMon 08-01-2022 Magnesium [Mass/Vol] 1.5 mg/dL Critically low 1.8-2.4 [facility] Comment on above: Performed By: #### U CLINT, CMP, LIPID, DBIL, PHOS, MG #### [facility] [address] [address] [address] Brea Causey PHOSPHORUSon 08-01-2022 Phosphate [Mass/Vol] 3.8 mg/dL Normal 2.6-4.7 [facility] Comment on above: Performed By: #### U CLINT, CMP, LIPID, DBIL, PHOS, MG #### [facility] [address] [place] [address] Dr. Brea Causey PROF 14(COMP METB)on 023 Albumin [Mass/Vol] 4.1 g/dL Normal 3.4-5.[address] [facility] Comment on above: Performed By: #### U CLINT, CMP, LIPID, DBIL, PHOS, MG #### [facility] [address] [place] [address] Dr. Brea Causey Albumin/Globulin [Mass ratio] 1.3 {ratio} Normal [facility] Comment on above: Performed By: #### U CLINT, CMP, LIPID, DBIL, PHOS, MG #### [facility] [address] [place] [address] Dr. Brea Causey ALP [Catalytic activity/Vol] 197 U/L Critically high 46-116 [facility] Comment on above: Performed By: #### U CLINT, CMP, LIPID, DBIL, PHOS, MG #### [facility] [address] [place] [address] Dr. Brea Causey ALT [Catalytic activity/Vol] 26 U/L Normal 16-63 [facility] Comment on above: Performed By: #### U CLINT, CMP, LIPID, DBIL, PHOS, MG #### [facility] [address] [place] [address] Dr. Brea Causey Anion gap [Moles/Vol] 12.6 mmol/L Normal [facility] Comment on above: Performed By: #### U CLINT, CMP, LIPID, DBIL, PHOS, MG #### [facility] [address] [place] [address] Dr. Brea Causey AST [Catalytic activity/Vol] 20 U/L Normal 15-37 [facility] Comment on above: Performed By: #### U CLINT, CMP, LIPID, DBIL, PHOS, MG #### [facility] [address] [place] [address] Dr. Brea Causey Bilirubin [Mass/Vol] 0.4 mg/dL Normal 0.2-1.0 [facility] Comment on above: Performed By: #### U CLINT, CMP, LIPID, DBIL, PHOS, MG #### [facility] [address] [address] [address] Brea Causey Calcium [Mass/Vol] 7.9 mg/dL Critically low 8.5-10.1 Th e [facility] Comment on above: Performed By: #### U CLINT, CMP, LIPID, DBIL, PHOS, MG #### [facility] [address] [address] [address] Brea Causey Chloride [Moles/Vol] 97 mmol/L Critically low 98-107 [facility] Comment on above: Performed By: #### U CLINT, CMP, LIPID, DBIL, PHOS, MG #### [facility] [address] [place] [address] Dr. Brea aCusey CO2 [Moles/Vol] 28.9 mmol/L Normal 21.0-32.0 [facility] Comment on above: Performed By: #### U CLINT, CMP, LIPID, DBIL, PHOS, MG #### [facility] [address] [place] [address] Dr. Brea Causey Creatinine [Mass/Vol] 0.98 mg/dL Normal 0.70-1.30 [facility] Comment on above: Performed By: #### U CLINT, CMP, LIPID, DBIL, PHOS, MG #### [facility] [address] [place] [address] Dr. Brea Causey EGFR-AF MARSHALLESE >60 Normal >=60 [facility] Comment on above: Performed By: #### U CLINT, CMP, LIPID, DBIL, PHOS, MG #### [facility] [address] [place] [address] Dr. Brea Causey EGFR-NON AF MARSHALLESE >60 Normal >=60 [facility] Comment on above: Performed By: #### U CLINT, CMP, LIPID, DBIL, PHOS, MG #### [facility] [address] [place] [address] Dr. Brea Causey Globulin (S) [Mass/Vol] 3.2 g/dL Normal [facility] Comment on above: Performed By: #### U CLINT, CMP, LIPID, DBIL, PHOS, MG #### [facility] [address] [address] [address] Brea Causey Glucose [Mass/Vol] 174 mg/dL Critically high 74-106 [facility] Comment on above: Performed By: #### U CLINT, CMP, LIPID, DBIL, PHOS, MG #### [facility] [address] [address] [address] Brea Causey Potassium [Moles/Vol] 4.5 mmol/L Normal 3.5-5.1 [facility] Comment on above: Performed By: #### U CLINT, CMP, LIPID, DBIL, PHOS, MG #### [facility] [address] [address] [address] Brea Causey Protein [Mass/Vol] 7.3 g/dL Normal 6.4-8.[address] [facility] Comment on above: Performed By: #### U CLINT, CMP, LIPID, DBIL, PHOS, MG #### [facility] [address] [address] [address] Brea Causey Sodium [Moles/Vol] 134 mmol/L Critically low 136-145 [facility] Comment on above: Performed By: #### U CLITN, CMP, LIPID, DBIL, PHOS, MG #### [facility] [address] [address] [address] Brea Causey Urea nitrogen [Mass/Vol] 8.0 mg/dL Normal 7.0-18.0 [facility] Comment on above: Performed By: #### U CLINT, CMP, LIPID, DBIL, PHOS, MG #### [facility] [address] [place] [address] Dr. Brea Causey Urea nitrogen/Creatinine [Mass ratio] 8.2 mg/mg Normal [facility] Comment on above: Performed By: #### U CLINT, CMP, LIPID, DBIL, PHOS, MG #### [facility] [address] [place] [address] Dr. Brea Causey URIC ACID SERUMon 08-01-2022 Urate [Mass/Vol] 5.8 mg/dL Normal 3.5-7.2 [facility] Comment on above: Performed By: #### U CLINT, CMP, LIPID, DBIL, PHOS, MG #### [facility] [address] [place] [address] Dr. Brea Causey FK506 (TACROLIMUS) WHOLE BLO ODon 07-07-2022 Tacrolimus (FK506), Blood 3.6 ng/mL Normal 2.0-20.0 [facility] Comment on above: Result Comment: Trou gh (immediately following transplant) 15.0 . Trough (steady state, 2 weeks or more after transplant): 3.0 - 8.0 . Performed by LC-MS/MS technology. Performed By: #### C BC #### [facility] [address] [place] [address] Dr. Brea Causey BILIRUBIN CONJUGATED (DIRECT )on 07-04-2022 BILI, CONJUGATED 0.1 mg/dL Normal 0.0-0.2 [facility] Comment on above: Performed By: #### B KVIRUS #### [facility] [address] [place] [address] Dr. Brea Causey CBC AUTO DIFFon 07-04-2022 BASO # 0.0 103/ul Normal 0.0-0.1 [facility] Comment on above: Performed By: #### U CLINT, CMP, LIPID, DBIL, PHOS, MG #### [facility] [address] [place] [address] Dr. Brea Causey Basophils/100 WBC (Bld) 0.5 % Normal 0.2-2.0 [facility] Comment on above: Performed By: #### U CLINT, CMP, LIPID, DBIL, PHOS, MG #### [facility] [address] [place] [address] Dr. Brea Causey EO # 0.2 103/ul Normal 0.0-0.7 [facility] Comment on above: Performed By: #### U CLINT, CMP, LIPID, DBIL, PHOS, MG #### [facility] [address] [place] [address] Dr. Brea Causey Eosinophils/100 WBC (Bld) 2.6 % Normal 0.9-7.0 [facility] Comment on above: Performed By: #### U CLINT, CMP, LIPID, DBIL, PHOS, MG #### [facility] [address] [address] [address] Brea Causey Erythrocyte distribution width (RBC) [Ratio] 13.3 % Normal 11.0-15.0 [facility] Comment on above: Performed By: #### U CLINT, CMP, LIPID, DBIL, PHOS, MG #### [facility] [address] [address] [address] Brea Causey Hematocrit (Bld) [Volume fraction] 37.2 % Critically low 42.0-54.0 [facility] Comment on above: Performed By: #### U CLINT, CMP, LIPID, DBIL, PHOS, MG #### [facility] [address] [place] [address] Dr. Brea Causey Hemoglobin (Bld) [Mass/Vol] 12.4 g/dL Critically low 14.0-18.0 [facility] Comment on above: Performed By: #### U CLINT, CMP, LIPID, DBIL, PHOS, MG #### [facility] [address] [place] [address] Dr. Brea Causey IG # 0.09 10e3/ul Critically high 0.00-0.03 [facility] Comment on above: Performed By: #### U CLINT, CMP, LIPID, DBIL, PHOS, MG #### [facility] [address] [place] [address] Dr. Brea Causey IG % 1.4 % Critically high 0.0-0.5 [facility] Comment on above: Performed By: #### U CLINT, CMP, LIPID, DBIL, PHOS, MG #### [facility] [address] [address] [address] Brea Causey LYMPH # 1.0 103/ul Critically low 1.2-3.8 [facility] Comment on above: Performed By: #### U CLINT, CMP, LIPID, DBIL, PHOS, MG #### [facility] [address] [place] [address] Dr. Brea Causey Lymphocytes/100 WBC (Bld) 15.2 % Critically low 20.5-60.0 [facility] Comment on above: Performed By: #### U CLINT, CMP, LIPID, DBIL, PHOS, MG #### [facility] [address] [place] [address] Dr. Brea Causey MANUAL DIFF REQ NO Normal [facility] Comment on above: Performed By: #### U CLINT, CMP, LIPID, DBIL, PHOS, MG #### [facility] [address] [place] [address] Dr. Brea Causey MCH (RBC) [Entitic mass] 28.8 pg Normal 25.9-34.0 [facility] Comment on above: Performed By: #### U CLINT, CMP, LIPID, DBIL, PHOS, MG #### [facility] [address] [place] [address] Dr. Brea Causey MCHC (RBC) [Mass/Vol] 33.3 g/dL Normal 29.9-35.2 [facility] Comment on above: Performed By: #### U CLINT, CMP, LIPID, DBIL, PHOS, MG #### [facility] [address] [place] [address] Dr. Brea Causey MCV (RBC) [Entitic vol] 86.5 fL Normal 80.0-94.0 [facility] Comment on above: Performed By: #### U CLINT, CMP, LIPID, DBIL, PHOS, MG #### [facility] [address] [place] [address] Dr. Brea Causey MONO # 0.7 103/ul Normal 0.3-0.8 [facility] Comment on above: Performed By: #### U CLINT, CMP, LIPID, DBIL, PHOS, MG #### [facility] [address] [place] [address] Dr. Brea Causey Monocytes/100 WBC (Bld) 10.0 % Normal 1.7-12.0 [facility] Comment on above: Performed By: #### U CLINT, CMP, LIPID, DBIL, PHOS, MG #### [facility] [address] [place] [address] Dr. Brae Causey NEUT # 4.6 103/ul Normal 1.4-6.5 [facility] Comment on above: Performed By: #### U CLINT, CMP, LIPID, DBIL, PHOS, MG #### [facility] [address] [address] [address] Brea Causey Neutrophils/100 WBC (Bld) 70.3 % Normal 43.0-75.0 [facility] Comment on above: Performed By: #### U CLINT, CMP, LIPID, DBIL, PHOS, MG #### [facility] [address] [address] [address] Brea Causey Platelet mean volume (Bld) [Entitic vol] 8.8 fL Critically low 9.5-13.5 [facility] Comment on above: Performed By: #### U CLINT, CMP, LIPID, DBIL, PHOS, MG #### [facility] [address] [place] [address] Dr. Brea Causey PLT 240 103/ul Normal 150-450 [facility] Comment on above: Performed By: #### U CLINT, CMP, LIPID, DBIL, PHOS, MG #### [facility] [address] [place] [address] Dr. Brea Causey RBC 4.30 106/ul Critically low 4.70-6.10 [facility] Comment on above: Performed By: #### U CLINT, CMP, LIPID, DBIL, PHOS, MG #### [facility] [address] [place] [address] Dr. Brea Causey WBC 6.5 103/ul Normal 4.0-11.0 [facility] Comment on above: Performed By: #### U CLINT, CMP, LIPID, DBIL, PHOS, MG #### [facility] [address] [place] [address] Dr. Brea Causey LIPID PROFILEon 07-04-2022 CHOL-HDL RATIO NORM SEE BELOW Normal [facility] Comment on above: Result Comment: 3.3 - 4.4 LOW RISK 4.4 - 7.1 AVERAGE RISK 7.1 - 11.0 MODERATE RISK >11.0 HIGH RISK Performed By: #### U CLINT, CMP, LIPID, DBIL, PHOS, MG #### [facility] [address] [address] [address] Brea Causey Cholesterol [Mass/Vol] 86 mg/dL Normal <=200 [facility] Comment on above: Performed By: #### U CLINT, CMP, LIPID, DBIL, PHOS, MG #### [facility] [address] [address] [address] Brea Causey Cholesterol in HDL [Mass/Vol] 44 mg/dL Normal 40-60 [facility] Comment on above: Performed By: #### U CLINT, CMP, LIPID, DBIL, PHOS, MG #### [facility] [address] [address] [address] Brea Causey Cholesterol in LDL [Mass/Vol] 28.0 mg/dL Normal [facility] Comment on above: Performed By: #### U CLINT, CMP, LIPID, DBIL, PHOS, MG #### [facility] [address] [place] [address] Dr. Brea Causey Cholesterol.total/Cho lesterol in HDL [Mass ratio] 2.0 {ratio} Normal [facility] Comment on above: Performed By: #### U CLINT, CMP, LIPID, DBIL, PHOS, MG #### [facility] [address] [address] [address] Brea Causey HDL NORMAL > or = 60 mg/dl - LO W CARDIOVASCULAR RISK <40 mg/dl - HIGH CARDIOVASCULAR RISK Normal [facility] Comment on above: Performed By: #### U CLINT, CMP, LIPID, DBIL, PHOS, MG #### [facility] [address] [address] [address] Brea Causey LDL CALC NORMAL SEE BELOW Normal [facility] Comment on above: Result Comment: <100 mg/dl OPTIMAL 100 - 129 mg/dl NEAR OR ABOVE OPTIMAL 130 - 159 mg/dl BORDERLINE HIGH 160 - 189 mg/dl HIGH >190 mg/dl VERY HIGH Performed By: #### U CLINT, CMP, LIPID, DBIL, PHOS, MG #### [facility] [address] [address] [address] Brea Causey Triglyceride [Mass/Vol] 70 mg/dL Normal <=150 [facility] Comment on above: Performed By: #### U CLINT, CMP, LIPID, DBIL, PHOS, MG #### [facility] [address] [place] [address] Dr. Brea Causey VLDL CALC 14.0 mg/dL Normal [facility] Comment on above: Performed By: #### U CLINT, CMP, LIPID, DBIL, PHOS, MG #### [facility] [address] [place] [address] Dr. Brea Causey MAGNESIUMon 07-04-2022 Magnesium [Mass/Vol] 1.4 mg/dL Critically low 1.8-2.4 [facility] Comment on above: Performed By: #### U CLINT, CMP, LIPID, DBIL, PHOS, MG #### [facility] [address] [place] [address] Dr. Brea Causey PHOSPHORUSon 07-04-2022 Phosphate [Mass/Vol] 4.1 mg/dL Normal 2.6-4.7 [facility] Comment on above: Performed By: #### U CLINT, CMP, LIPID, DBIL, PHOS, MG #### [facility] [address] [place] [address] Dr. Brea Causey PROF 14(COMP METB)on 023 Albumin [Mass/Vol] 4.0 g/dL Normal 3.4-5.[address] [facility] Comment on above: Performed By: #### B KVIRUS #### [facility] [address] [place] [address] Dr. Brea Causey Albumin/Globulin [Mass ratio] 1.3 {ratio} Normal [facility] Comment on above: Performed By: #### B KVIRUS #### [facility] [address] [place] [address] Dr. Brea Causey ALP [Catalytic activity/Vol] 212 U/L Critically high 46-116 [facility] Comment on above: Performed By: #### B KVIRUS #### [facility] [address] [address] [address] Brea Causey ALT [Catalytic activity/Vol] 31 U/L Normal 16-63 [facility] Comment on above: Performed By: #### B KVIRUS #### [facility] [address] [place] [address] Dr. Brea Causey Anion gap [Moles/Vol] 11.9 mmol/L Normal [facility] Comment on above: Performed By: #### B KVIRUS #### [facility] [address] [place] [address] Dr. Brea Causey AST [Catalytic activity/Vol] 21 U/L Normal 15-37 [facility] Comment on above: Performed By: #### B KVIRUS #### [facility] [address] [place] [address] Dr. Brea Causey Bilirubin [Mass/Vol] 0.3 mg/dL Normal 0.2-1.0 [facility] Comment on above: Performed By: #### B KVIRUS #### [facility] [address] [place] [address] Dr. Brea Causey Calcium [Mass/Vol] 8.1 mg/dL Critically low 8.5-10.1 [facility] Comment on above: Performed By: #### B KVIRUS #### [facility] [address] [place] [address] Dr. Brea Causey Chloride [Moles/Vol] 97 mmol/L Critically low 98-107 [facility] Comment on above: Performed By: #### B KVIRUS #### [facility] [address] [place] [address] Dr. Brea Causey CO2 [Moles/Vol] 26.8 mmol/L Normal 21.0-32.0 [facility] Comment on above: Performed By: #### B KVIRUS #### [facility] [address] [place] [address] Dr. Brea Causey Creatinine [Mass/Vol] 0.99 mg/dL Normal 0.70-1.30 [facility] Comment on above: Performed By: #### B KVIRUS #### [facility] [address] [place], [place] [id number] Dr. Brea Causey EGFR-AF MARSHALLESE >60 Normal >=60 [facility] Comment on above: Performed By: #### B KVIRUS #### [facility] [address] [place] [address] Dr. Brea Causey EGFR-NON AF MARSHALLESE >60 Normal >=60 [facility] Comment on above: Performed By: #### B KVIRUS #### [facility] [address] [place] [address] Dr. Brea Causey Globulin (S) [Mass/Vol] 3.2 g/dL Normal [facility] Comment on above: Performed By: #### B KVIRUS #### [facility] [address] [place] [address] Dr. Brea Causey Glucose [Mass/Vol] 169 mg/dL Critically high 74-106 [facility] Comment on above: Performed By: #### B KVIRUS #### [facility] [address] [place] [address] Dr. Brea Causey Potassium [Moles/Vol] 4.7 mmol/L Normal 3.5-5.1 [facility] Comment on above: Performed By: #### B KVIRUS #### [facility] [address] [place] [address] Dr. Brea Causey Protein [Mass/Vol] 7.2 g/dL Normal 6.4-8.[address] [facility] Comment on above: Performed By: #### B KVIRUS #### [facility] [address] [place] [address] Dr. Brea Causey Sodium [Moles/Vol] 131 mmol/L Critically low 136-145 Th [facility] Comment on above: Performed By: #### B KVIRUS #### [facility] [address] [place] [address] Dr. Brea Causey Urea nitrogen [Mass/Vol] 9.0 mg/dL Normal 7.0-18.0 [facility] Comment on above: Performed By: #### B KVIRUS #### [facility] [address] [place] [address] Dr. Brea Causey Urea nitrogen/Creatinine [Mass ratio] 9.1 mg/mg Normal [facility] Comment on above: Performed By: #### B KVIRUS #### [facility] [address] [place] [address] Dr. Brea Causey URIC ACID SERUMon 07-04-2022 Urate [Mass/Vol] 6.1 mg/dL Normal 3.5-7.2 [facility] Comment on above: Performed By: #### U CLINT, CMP, LIPID, DBIL, PHOS, MG #### [facility] [address] [place] [address] Dr. Brea Causey TESTOSTERONE, FREE,DIRECT, T OTALon 05-28-2022 Free Testosterone(Direct) 5.9 pg/mL Critically low 6.6-18.1 [facility] Comment on above: Result Comment: Perf ormed at: BN Performed By: #### U CLINT, CMP, LIPID, DBIL, PHOS, MG #### [facility] [address] [place] [address] Dr. Brea Causey Testosterone [Mass/Vol] 513 ng/dL Normal 264-916 [facility] Comment on above: Result Comment: Adul t male reference interval is based on a population of healthy nonobese males (BMI <30) between 19 and 39 years old. Steven et.al. JCEM 2017,102;1008-3978. PMID: [id number]. Performed at: CB Performed By: #### U CLINT, CMP, LIPID, DBIL, PHOS, MG #### [facility] [address] [place] [address] Dr. Brea Causey FK506 (TACROLIMUS) WHOLE BLO ODon 05-26-2022 Tacrolimus (FK506), Blood 3.9 ng/mL Normal 2.0-20.0 [facility] Comment on above: Result Comment: Trou gh (immediately following transplant) 15.0 . Trough (steady state, 2 weeks or more after transplant): 3.0 - 8.0 . Performed by LC-MS/MS technology. Performed By: #### B KVIRUS #### [facility] [address] [place] [address] Dr. Brea Causey BK VIRUS PCR QUANTon 023 BKV DNA QUANT PCR PLASMA Negative Normal Negative [facility] Comment on above: Result Comment: No B K DNA detected. . The linear range of the assay is 22 - 100,000,000 IU/mL. Performed By: #### U CLINT, CMP, LIPID, DBIL, PHOS, MG #### [facility] [address] [place] [address] Dr. Brea Causey Log10 BKV DNA Plasma Normal [facility] Comment on above: Performed By: #### U CLINT, CMP, LIPID, DBIL, PHOS, MG #### [facility] [address] [place] [address] Dr. Brea Causey BILIRUBIN CONJUGATED (DIRECT )on 05-23-2022 BILI, CONJUGATED 0.2 mg/dL Normal 0.0-0.2 [facility] Comment on above: Performed By: #### C BC #### [facility] [address] [place] [address] Dr. Brea Causey CBC AUTO DIFFon 05-23-2022 BASO # 0.0 103/ul Normal 0.0-0.1 [facility] Comment on above: Performed By: #### B KVIRUS #### [facility] [address] [place] [address] Dr. Brea Causey Basophils/100 WBC (Bld) 0.6 % Normal 0.2-2.0 [facility] Comment on above: Performed By: #### B KVIRUS #### [facility] [address] [place] [address] Dr. Brea Causey EO # 0.1 103/ul Normal 0.0-0.7 [facility] Comment on above: Performed By: #### B KVIRUS #### [facility] [address] [place] [address] Dr. Brea Causey Eosinophils/100 WBC (Bld) 1.7 % Normal 0.9-7.0 [facility] Comment on above: Performed By: #### B KVIRUS #### [facility] [address] [place] [address] Dr. Brea Causey Erythrocyte distribution width (RBC) [Ratio] 13.4 % Normal 11.0-15.0 [facility] Comment on above: Performed By: #### B KVIRUS #### [facility] [address] [place] [address] Dr. Brea Causey Hematocrit (Bld) [Volume fraction] 38.8 % Critically low 42.0-54.0 [facility] Comment on above: Performed By: #### B KVIRUS #### [facility] [address] [place] [address] Dr. Brea Causey Hemoglobin (Bld) [Mass/Vol] 12.4 g/dL Critically low 14.0-18.0 [facility] Comment on above: Performed By: #### B KVIRUS #### [facility] [address] [place] [address] Dr. Brea Causey IG # 0.07 10e3/ul Critically high 0.00-0.03 [facility] Comment on above: Performed By: #### B KVIRUS #### [facility] [address] [place] [address] Dr. Brea Causey IG % 1.1 % Critically high 0.0-0.5 [facility] Comment on above: Performed By: #### B KVIRUS #### [facility] [address] [place] [address] Dr. Brea Causey LYMPH # 0.9 103/ul Critically low 1.2-3.8 [facility] Comment on above: Performed By: #### B KVIRUS #### [facility] [address] [place] [address] Dr. Brea Causey Lymphocytes/100 WBC (Bld) 14.1 % Critically low 20.5-60.0 [facility] Comment on above: Performed By: #### B KVIRUS #### [facility] [address] [place] [address] Dr. Brea Causey MANUAL DIFF REQ NO Normal [facility] Comment on above: Performed By: #### B KVIRUS #### [facility] [address] [place] [address] Dr. Brea Causey MCH (RBC) [Entitic mass] 29.3 pg Normal 25.9-34.0 [facility] Comment on above: Performed By: #### B KVIRUS #### [facility] [address] [place] [address] Dr. Brea Causey MCHC (RBC) [Mass/Vol] 32.0 g/dL Normal 29.9-35.2 [facility] Comment on above: Performed By: #### B KVIRUS #### [facility] [address] [place] [address] Dr. Brea Causey MCV (RBC) [Entitic vol] 91.7 fL Normal 80.0-94.0 [facility] Comment on above: Performed By: #### B KVIRUS #### [facility] [address] [place] [address] Dr. Brea Causey MONO # 0.7 103/ul Normal 0.3-0.8 [facility] Comment on above: Performed By: #### B KVIRUS #### [facility] [address] [place] [address] Dr. Brea Causey Monocytes/100 WBC (Bld) 10.0 % Normal 1.7-12.0 [facility] Comment on above: Performed By: #### B KVIRUS #### [facility] [address] [place] [address] Dr. Brea Causey NEUT # 4.7 103/ul Normal 1.4-6.5 [facility] Comment on above: Performed By: #### B KVIRUS #### [facility] [address] [place] [address] Dr. Brea Causey Neutrophils/100 WBC (Bld) 72.5 % Normal 43.0-75.0 [facility] Comment on above: Performed By: #### B KVIRUS #### [facility] [address] [place] [address] Dr. Brea Causey Platelet mean volume (Bld) [Entitic vol] 9.4 fL Critically low 9.5-13.5 [facility] Comment on above: Performed By: #### B KVIRUS #### [facility] [address] [place] [address] Dr. Brea Causey PLT 256 103/ul Normal 150-450 [facility] Comment on above: Performed By: #### B KVIRUS #### [facility] [address] [address] [address] Brea Causey RBC 4.23 106/ul Critically low 4.70-6.10 [facility] Comment on above: Performed By: #### B KVIRUS #### [facility] [address] [address] [address] Brea Causey WBC 6.5 103/ul Normal 4.0-11.0 [facility] Comment on above: Performed By: #### B KVIRUS #### [facility] [address] [place] [address] Dr. Brea Causey GLYCOHEMOGLOBIN A1Con 2022 ADA RECOMMENDATION SEE BELOW Normal [facility] Comment on above: Result Comment: ADA RECOMMENDED LIMIT 4.0 - 6.0 ADA THERAPEUTIC TARGET < 7.0 ACTION SUGGESTED > 7.0 Performed By: #### U CLINT, CMP, LIPID, DBIL, PHOS, MG #### [facility] [address] [address] [address] Brea Causey Glucose [Mass/Vol] 160 mg/dL Normal [facility] Comment on above: Performed By: #### U CLINT, CMP, LIPID, DBIL, PHOS, MG #### [facility] [address] [address] [address] Brea Causey HbA1c (Bld) [Mass fraction] 7.2 % Critically high 4.5-6.2 [facility] Comment on above: Performed By: #### U CLINT, CMP, LIPID, DBIL, PHOS, MG #### [facility] [address] [address] [address] Brea Causey LIPID PROFILEon 05-23-2022 CHOL-HDL RATIO NORM SEE BELOW Normal [facility] Comment on above: Result Comment: 3.3 - 4.4 LOW RISK 4.4 - 7.1 AVERAGE RISK 7.1 - 11.0 MODERATE RISK >11.0 HIGH RISK Performed By: #### C BC #### [facility] [address] [address] [address] Brea Causey Cholesterol [Mass/Vol] 87 mg/dL Normal <=200 [facility] Comment on above: Performed By: #### C BC #### [facility] [address] [address] [address] Brea Causey Cholesterol in HDL [Mass/Vol] 54 mg/dL Normal 40-60 [facility] Comment on above: Performed By: #### C BC #### [facility] [address] [address] [address] Brea Causey Cholesterol in LDL [Mass/Vol] 24.6 mg/dL Normal [facility] Comment on above: Performed By: #### C BC #### [facility] [address] [address] [address] Brea Causey Cholesterol.total/Cho lesterol in HDL [Mass ratio] 1.6 {ratio} Normal [facility] Comment on above: Performed By: #### C BC #### [facility] [address] [address] [address] Brea Causey HDL NORMAL > or = 60 mg/dl - LO W CARDIOVASCULAR RISK <40 mg/dl - HIGH CARDIOVASCULAR RISK Normal [facility] Comment on above: Performed By: #### C BC #### [facility] [address] [address] [address] Brea Causey LDL CALC NORMAL SEE BELOW Normal [facility] Comment on above: Result Comment: <100 mg/dl OPTIMAL 100 - 129 mg/dl NEAR OR ABOVE OPTIMAL 130 - 159 mg/dl BORDERLINE HIGH 160 - 189 mg/dl HIGH >190 mg/dl VERY HIGH Performed By: #### C BC #### [facility] [address] [address] [address] Brea Causey Triglyceride [Mass/Vol] 42 mg/dL Normal <=150 [facility] Comment on above: Performed By: #### C BC #### [facility] [address] [address] [address] Brea Causey VLDL CALC 8.4 mg/dL Normal [facility] Comment on above: Performed By: #### C BC #### [facility] [address] [place] [address] Dr. Brea Causey MAGNESIUMon 05-23-2022 Magnesium [Mass/Vol] 1.4 mg/dL Critically low 1.8-2.4 [facility] Comment on above: Performed By: #### C BC #### [facility] [address] [place] [address] Dr. Brea Causey PHOSPHORUSon 05-23-2022 Phosphate [Mass/Vol] 3.6 mg/dL Normal 2.6-4.7 [facility] Comment on above: Performed By: #### C BC #### [facility] [address] [place] [address] Dr. Brea Causey PROF 14(COMP METB)on 023 Albumin [Mass/Vol] 3.9 g/dL Normal 3.4-5.[address] [facility] Comment on above: Performed By: #### C BC #### [facility] [address] [place] [address] Dr. Brea Causey Albumin/Globulin [Mass ratio] 1.2 {ratio} Normal [facility] Comment on above: Performed By: #### C BC #### [facility] [address] [place] [address] Dr. Brea Causey ALP [Catalytic activity/Vol] 190 U/L Critically high 46-116 [facility] Comment on above: Performed By: #### C BC #### [facility] [address] [place] [address] Dr. Brea Causey ALT [Catalytic activity/Vol] 26 U/L Normal 16-63 [facility] Comment on above: Performed By: #### C BC #### [facility] [address] [place] [address] Dr. Brea Causey Anion gap [Moles/Vol] 13.1 mmol/L Normal [facility] Comment on above: Performed By: #### C BC #### [facility] [address] [place] [address] Dr. Brea Causey AST [Catalytic activity/Vol] 18 U/L Normal 15-37 [facility] Comment on above: Performed By: #### C BC #### [facility] [address] [address] [address] Brea Causey Bilirubin [Mass/Vol] 0.4 mg/dL Normal 0.2-1.0 [facility] Comment on above: Performed By: #### C BC #### [facility] [address] [address] [address] Brea Causey Calcium [Mass/Vol] 7.8 mg/dL Critically low 8.5-10.1 [facility] Comment on above: Performed By: #### C BC #### [facility] [address] [address] [address] Brea Causey Chloride [Moles/Vol] 95 mmol/L Critically low 98-107 [facility] Comment on above: Performed By: #### C BC #### [facility] [address] [address] [address] Brea Causey CO2 [Moles/Vol] 28.8 mmol/L Normal 21.0-32.0 [facility] Comment on above: Performed By: #### C BC #### [facility] [address] [address] [address] Brea Causey Creatinine [Mass/Vol] 1.03 mg/dL Normal 0.70-1.30 [facility] Comment on above: Performed By: #### C BC #### [facility] [address] [address] [address] Brea Causey EGFR-AF MARSHALLESE >60 Normal >=60 [facility] Comment on above: Performed By: #### C BC #### [facility] [address] [address] [address] Brea Causey EGFR-NON AF MARSHALLESE >60 Normal >=60 [facility] Comment on above: Performed By: #### C BC #### [facility] [address] [place] [address] Dr. Brea Causey Globulin (S) [Mass/Vol] 3.2 g/dL Normal [facility] Comment on above: Performed By: #### C BC #### [facility] [address] [address] [address] Brea Causey Glucose [Mass/Vol] 155 mg/dL Critically high 74-106 [facility] Comment on above: Performed By: #### C BC #### [facility] [address] [address] [address] Brea Causey Potassium [Moles/Vol] 4.9 mmol/L Normal 3.5-5.1 [facility] Comment on above: Performed By: #### C BC #### [facility] [address] [address] [address] Brea Causey Protein [Mass/Vol] 7.1 g/dL Normal 6.4-8.[address] [facility] Comment on above: Performed By: #### C BC #### [facility] [address] [address] [address] Brea Causey Sodium [Moles/Vol] 132 mmol/L Critically low 136-145 [facility] Comment on above: Performed By: #### C BC #### [facility] [address] [address] [address] Brea Causey Urea nitrogen [Mass/Vol] 8.0 mg/dL Normal 7.0-18.0 [facility] Comment on above: Performed By: #### C BC #### [facility] [address] [address] [address] Brea Causey Urea nitrogen/Creatinine [Mass ratio] 7.8 mg/mg Normal [facility] Comment on above: Performed By: #### C BC #### [facility] [address] [address] [address] Brea Causey URIC ACID SERUMon 05-23-2022 Urate [Mass/Vol] 5.6 mg/dL Normal 3.5-7.2 [facility] Comment on above: Performed By: #### C BC #### [facility] [address] [address] [address] Brea Causey TESTOSTERONE, FREE,DIRECT, T OTALon 05-03-2022 Free Testosterone(Direct) 7.4 pg/mL Normal 6.6-18.1 [facility] Comment on above: Result Comment: Perf ormed at: BN Performed By: #### U CLINT, CMP, LIPID, DBIL, PHOS, MG #### [facility] [address] [address] [address] Brea Causey Testosterone [Mass/Vol] 494 ng/dL Normal 264-916 [facility] Comment on above: Result Comment: Adul t male reference interval is based on a population of healthy nonobese males (BMI <30) between 19 and 39 years old. daniel Harris.al. JCEM 2017,102;0665-2323. PMID: [id number]. Performed at: CB Performed By: #### U CLINT, CMP, LIPID, DBIL, PHOS, MG #### [facility] [address] [place] [address] Dr. Brea Causey FK506 (TACROLIMUS) WHOLE BLO ODon 05-02-2022 Tacrolimus (FK506), Blood 4.3 ng/mL Normal 2.0-20.0 [facility] Comment on above: Result Comment: Trou gh (immediately following transplant) 15.0 . Trough (steady state, 2 weeks or more after transplant): 3.0 - 8.0 . Performed by LC-MS/MS technology. Performed By: #### C BC #### [facility] [address] [place] [address] Dr. Brea Causey BILIRUBIN CONJUGATED (DIRECT )on 04-30-2022 BILI, CONJUGATED 0.1 mg/dL Normal 0.0-0.2 [facility] Comment on above: Performed By: #### U CLINT, CMP, LIPID, DBIL, PHOS, MG #### [facility] [address] [address] [address] Brea Causey CBC AUTO DIFFon 04-30-2022 BASO # 0.0 103/ul Normal 0.0-0.1 [facility] Comment on above: Performed By: #### U CLINT, CMP, LIPID, DBIL, PHOS, MG #### [facility] [address] [place] [address] Dr. Brea Causey Basophils/100 WBC (Bld) 0.5 % Normal 0.2-2.0 [facility] Comment on above: Performed By: #### U CLINT, CMP, LIPID, DBIL, PHOS, MG #### [facility] [address] [place] [address] Dr. Brea Causey EO # 0.1 103/ul Normal 0.0-0.7 [facility] Comment on above: Performed By: #### U CLINT, CMP, LIPID, DBIL, PHOS, MG #### [facility] [address] [place] [address] Dr. Brea Causey Eosinophils/100 WBC (Bld) 2.1 % Normal 0.9-7.0 [facility] Comment on above: Performed By: #### U CLINT, CMP, LIPID, DBIL, PHOS, MG #### [facility] [address] [place] [address] Dr. Brea Causey Erythrocyte distribution width (RBC) [Ratio] 13.2 % Normal 11.0-15.0 [facility] Comment on above: Performed By: #### U CLINT, CMP, LIPID, DBIL, PHOS, MG #### [facility] [address] [place] [address] Dr. Brea Causey Hematocrit (Bld) [Volume fraction] 37.0 % Critically low 42.0-54.0 [facility] Comment on above: Performed By: #### U CLINT, CMP, LIPID, DBIL, PHOS, MG #### [facility] [address] [place] [address] Dr. Brea Causey Hemoglobin (Bld) [Mass/Vol] 12.4 g/dL Critically low 14.0-18.0 [facility] Comment on above: Performed By: #### U CLINT, CMP, LIPID, DBIL, PHOS, MG #### [facility] [address] [place] [address] Dr. Brea Causey IG # 0.05 10e3/ul Critically high 0.00-0.03 [facility] Comment on above: Performed By: #### U CLINT, CMP, LIPID, DBIL, PHOS, MG #### [facility] [address] [place] [address] Dr. Brea Causey IG % 0.9 % Critically high 0.0-0.5 [facility] Comment on above: Performed By: #### U CLINT, CMP, LIPID, DBIL, PHOS, MG #### [facility] [address] [place] [address] Dr. Brea Causey LYMPH # 1.0 103/ul Critically low 1.2-3.8 [facility] Comment on above: Performed By: #### U CLINT, CMP, LIPID, DBIL, PHOS, MG #### [facility] [address] [place] [address] Dr. Brea Causey Lymphocytes/100 WBC (Bld) 16.4 % Critically low 20.5-60.0 [facility] Comment on above: Performed By: #### U CLINT, CMP, LIPID, DBIL, PHOS, MG #### [facility] [address] [place] [address] Dr. Brea Causey MANUAL DIFF REQ NO Normal [facility] Comment on above: Performed By: #### U CLINT, CMP, LIPID, DBIL, PHOS, MG #### [facility] [address] [place] [address] Dr. Brea Causey MCH (RBC) [Entitic mass] 29.0 pg Normal 25.9-34.0 [facility] Comment on above: Performed By: #### U CLINT, CMP, LIPID, DBIL, PHOS, MG #### [facility] [address] [place] [address] Dr. Brea Causey MCHC (RBC) [Mass/Vol] 33.5 g/dL Normal 29.9-35.2 [facility] Comment on above: Performed By: #### U CLINT, CMP, LIPID, DBIL, PHOS, MG #### [facility] [address] [place] [address] Dr. Brea Causey MCV (RBC) [Entitic vol] 86.7 fL Normal 80.0-94.0 [facility] Comment on above: Performed By: #### U CLINT, CMP, LIPID, DBIL, PHOS, MG #### [facility] [address] [address] [address] Brea Causey MONO # 0.7 103/ul Normal 0.3-0.8 [facility] Comment on above: Performed By: #### U CLINT, CMP, LIPID, DBIL, PHOS, MG #### [facility] [address] [place] [address] Dr. Brea Causey Monocytes/100 WBC (Bld) 11.6 % Normal 1.7-12.0 [facility] Comment on above: Performed By: #### U CLINT, CMP, LIPID, DBIL, PHOS, MG #### [facility] [address] [place] [address] Dr. Brea Causey NEUT # 4.0 103/ul Normal 1.4-6.5 [facility] Comment on above: Performed By: #### U CLINT, CMP, LIPID, DBIL, PHOS, MG #### [facility] [address] [place] [address] Dr. Brea Causey Neutrophils/100 WBC (Bld) 68.5 % Normal 43.0-75.0 [facility] Comment on above: Performed By: #### U CLINT, CMP, LIPID, DBIL, PHOS, MG #### [facility] [address] [place] [address] Dr. Brea Causey Platelet mean volume (Bld) [Entitic vol] 9.2 fL Critically low 9.5-13.5 [facility] Comment on above: Performed By: #### U CLINT, CMP, LIPID, DBIL, PHOS, MG #### [facility] [address] [place] [address] Dr. Brea Causey PLT 231 103/ul Normal 150-450 [facility] Comment on above: Performed By: #### U CLINT, CMP, LIPID, DBIL, PHOS, MG #### [facility] [address] [place] [address] Dr. Brea Causey RBC 4.27 106/ul Critically low 4.70-6.10 [facility] Comment on above: Performed By: #### U CLINT, CMP, LIPID, DBIL, PHOS, MG #### [facility] [address] [address] [address] Brea Causey WBC 5.9 103/ul Normal 4.0-11.0 [facility] Comment on above: Performed By: #### U LCINT, CMP, LIPID, DBIL, PHOS, MG #### [facility] [address] [address] [address] Brea Causey LIPID PROFILEon 04-30-2022 CHOL-HDL RATIO NORM SEE BELOW Normal [facility] Comment on above: Result Comment: 3.3 - 4.4 LOW RISK 4.4 - 7.1 AVERAGE RISK 7.1 - 11.0 MODERATE RISK >11.0 HIGH RISK Performed By: #### U CLINT, CMP, LIPID, DBIL, PHOS, MG #### [facility] [address] [address] [address] Brea Causey Cholesterol [Mass/Vol] 78 mg/dL Normal <=200 [facility] Comment on above: Performed By: #### U CLINT, CMP, LIPID, DBIL, PHOS, MG #### [facility] [address] [address] [address] Brea Causey Cholesterol in HDL [Mass/Vol] 41 mg/dL Normal 40-60 [facility] Comment on above: Performed By: #### U CLINT, CMP, LIPID, DBIL, PHOS, MG #### [facility] [address] [address] [address] Brea Causey Cholesterol in LDL [Mass/Vol] 17.8 mg/dL Normal [facility] Comment on above: Performed By: #### U CLINT, CMP, LIPID, DBIL, PHOS, MG #### [facility] [address] [address] [address] Brea Causey Cholesterol.total/Cho lesterol in HDL [Mass ratio] 1.9 {ratio} Normal [facility] Comment on above: Performed By: #### U CLINT, CMP, LIPID, DBIL, PHOS, MG #### [facility] [address] [address] [address] Brea Causey HDL NORMAL > or = 60 mg/dl - LO W CARDIOVASCULAR RISK <40 mg/dl - HIGH CARDIOVASCULAR RISK Normal [facility] Comment on above: Performed By: #### U CLINT, CMP, LIPID, DBIL, PHOS, MG #### [facility] [address] [address] [address] Brea Causey LDL CALC NORMAL SEE BELOW Normal [facility] Comment on above: Result Comment: <100 mg/dl OPTIMAL 100 - 129 mg/dl NEAR OR ABOVE OPTIMAL 130 - 159 mg/dl BORDERLINE HIGH 160 - 189 mg/dl HIGH >190 mg/dl VERY HIGH Performed By: #### U CLINT, CMP, LIPID, DBIL, PHOS, MG #### [facility] [address] [address] [address] Brea Causey Triglyceride [Mass/Vol] 96 mg/dL Normal <=150 [facility] Comment on above: Performed By: #### U CLINT, CMP, LIPID, DBIL, PHOS, MG #### [facility] [address] [place] [address] Dr. Brea Causey VLDL CALC 19.2 mg/dL Normal [facility] Comment on above: Performed By: #### U CLINT, CMP, LIPID, DBIL, PHOS, MG #### [facility] [address] [place] [address] Dr. Brea Causey MAGNESIUMon 04-30-2022 Magnesium [Mass/Vol] 1.7 mg/dL Critically low 1.8-2.4 [facility] Comment on above: Performed By: #### U CLINT, CMP, LIPID, DBIL, PHOS, MG #### [facility] [address] [place] [address] Dr. Brea Causey PHOSPHORUSon 04-30-2022 Phosphate [Mass/Vol] 3.6 mg/dL Normal 2.6-4.7 [facility] Comment on above: Performed By: #### U CLINT, CMP, LIPID, DBIL, PHOS, MG #### [facility] [address] [place] [address] Dr. Brea Causey PROF 14(COMP METB)on 022 Albumin [Mass/Vol] 4.0 g/dL Normal 3.4-5.[address] [facility] Comment on above: Performed By: #### U CLINT, CMP, LIPID, DBIL, PHOS, MG #### [facility] [address] [place] [address] Dr. Brea Causey Albumin/Globulin [Mass ratio] 1.3 {ratio} Normal [facility] Comment on above: Performed By: #### U CLINT, CMP, LIPID, DBIL, PHOS, MG #### [facility] [address] [address] [address] Brea Causey ALP [Catalytic activity/Vol] 196 U/L Critically high 46-116 [facility] Comment on above: Performed By: #### U CLINT, CMP, LIPID, DBIL, PHOS, MG #### [facility] [address] [place] [address] Dr. Brea Causey ALT [Catalytic activity/Vol] 21 U/L Normal 16-63 [facility] Comment on above: Performed By: #### U CLINT, CMP, LIPID, DBIL, PHOS, MG #### [facility] [address] [place] [address] Dr. Brea Causey Anion gap [Moles/Vol] 10.5 mmol/L Normal [facility] Comment on above: Performed By: #### U CLINT, CMP, LIPID, DBIL, PHOS, MG #### [facility] [address] [place] [address] Dr. Brea Causey AST [Catalytic activity/Vol] 16 U/L Normal 15-37 [facility] Comment on above: Performed By: #### U CLINT, CMP, LIPID, DBIL, PHOS, MG #### [facility] [address] [place] [address] Dr. Brea Causey Bilirubin [Mass/Vol] 0.3 mg/dL Normal 0.2-1.0 [facility] Comment on above: Performed By: #### U CLINT, CMP, LIPID, DBIL, PHOS, MG #### [facility] [address] [address] [address] Brea Causey Calcium [Mass/Vol] 8.6 mg/dL Normal 8.5-10.1 [facility] Comment on above: Performed By: #### U CLINT, CMP, LIPID, DBIL, PHOS, MG #### [facility] [address] [address] [address] Brea Causey Chloride [Moles/Vol] 95 mmol/L Critically low 98-107 [facility] Comment on above: Performed By: #### U CLINT, CMP, LIPID, DBIL, PHOS, MG #### [facility] [address] [address] [address] Brea Causey CO2 [Moles/Vol] 30.9 mmol/L Normal 21.0-32.0 [facility] Comment on above: Performed By: #### U CLINT, CMP, LIPID, DBIL, PHOS, MG #### [facility] [address] [address] [address] Brea Causey Creatinine [Mass/Vol] 1.00 mg/dL Normal 0.70-1.30 [facility] Comment on above: Performed By: #### U CLINT, CMP, LIPID, DBIL, PHOS, MG #### [facility] [address] [address] [address] Brea Causey EGFR-AF MARSHALLESE >60 Normal >=60 [facility] Comment on above: Performed By: #### U CLINT, CMP, LIPID, DBIL, PHOS, MG #### [facility] [address] [address] [address] Brea Causey EGFR-NON AF MARSHALLESE >60 Normal >=60 [facility] Comment on above: Performed By: #### U CLINT, CMP, LIPID, DBIL, PHOS, MG #### [facility] [address] [address] [address] Brea Causey Globulin (S) [Mass/Vol] 3.2 g/dL Normal [facility] Comment on above: Performed By: #### U CLINT, CMP, LIPID, DBIL, PHOS, MG #### [facility] [address] [address] [address] Brea Causey Glucose [Mass/Vol] 160 mg/dL Critically high 74-106 [facility] Comment on above: Performed By: #### U CLINT, CMP, LIPID, DBIL, PHOS, MG #### [facility] [address] [place] [address] Dr. Brea Causey Potassium [Moles/Vol] 5.4 mmol/L Critically high 3.5-5.1 [facility] Comment on above: Performed By: #### U CLINT, CMP, LIPID, DBIL, PHOS, MG #### [facility] [address] [place] [address] Dr. Brea Causey Protein [Mass/Vol] 7.2 g/dL Normal 6.4-8.[address] [facility] Comment on above: Performed By: #### U CLINT, CMP, LIPID, DBIL, PHOS, MG #### [facility] [address] [place] [address] Dr. Brea Causey Sodium [Moles/Vol] 131 mmol/L Critically low 136-145 [facility] Comment on above: Performed By: #### U CLINT, CMP, LIPID, DBIL, PHOS, MG #### [facility] [address] [place] [address] Dr. Brea Causey Urea nitrogen [Mass/Vol] 11.0 mg/dL Normal 7.0-18.0 [facility] Comment on above: Performed By: #### U CLINT, CMP, LIPID, DBIL, PHOS, MG #### [facility] [address] [place] [address] Dr. Brea Causey Urea nitrogen/Creatinine [Mass ratio] 11.0 mg/mg Normal [facility] Comment on above: Performed By: #### U CLINT, CMP, LIPID, DBIL, PHOS, MG #### [facility] [address] [place] [address] Dr. Brea Causey URIC ACID SERUMon 04-30-2022 Urate [Mass/Vol] 5.9 mg/dL Normal 3.5-7.2 [facility] Comment on above: Performed By: #### U CLINT, CMP, LIPID, DBIL, PHOS, MG #### [facility] [address] [place] [address] Dr. Brea Causey FK506 (TACROLIMUS) WHOLE BLO ODon 04-06-2022 Tacrolimus (FK506), Blood 3.0 ng/mL Normal 2.0-20.0 [facility] Comment on above: Result Comment: Trou gh (immediately following transplant) 15.0 . Trough (steady state, 2 weeks or more after transplant): 3.0 - 8.0 . Performed by LC-MS/MS technology. Performed By: #### U CLINT, CMP, LIPID, DBIL, PHOS, MG #### [facility] [address] [place] [address] Dr. Brea Causey BILIRUBIN CONJUGATED (DIRECT )on 04-03-2022 BILI, CONJUGATED 0.1 mg/dL Normal 0.0-0.2 [facility] Comment on above: Performed By: #### U CLINT, CMP, LIPID, DBIL, PHOS, MG #### [facility] [address] [place] [address] Dr. Brea Causey CBC AUTO DIFFon 04-03-2022 BASO # 0.0 103/ul Normal 0.0-0.1 [facility] Comment on above: Performed By: #### U CLINT, CMP, LIPID, DBIL, PHOS, MG #### [facility] [address] [place] [address] Dr. Brea Causey Basophils/100 WBC (Bld) 0.5 % Normal 0.2-2.0 [facility] Comment on above: Performed By: #### U CLINT, CMP, LIPID, DBIL, PHOS, MG #### [facility] [address] [place] [address] Dr. Brea Causey EO # 0.1 103/ul Normal 0.0-0.7 [facility] Comment on above: Performed By: #### U CLINT, CMP, LIPID, DBIL, PHOS, MG #### [facility] [address] [place] [address] Dr. Brea Causey Eosinophils/100 WBC (Bld) 2.5 % Normal 0.9-7.0 [facility] Comment on above: Performed By: #### U CLINT, CMP, LIPID, DBIL, PHOS, MG #### [facility] [address] [place] [address] Dr. Brea Causey Erythrocyte distribution width (RBC) [Ratio] 13.3 % Normal 11.0-15.0 [facility] Comment on above: Performed By: #### U CLINT, CMP, LIPID, DBIL, PHOS, MG #### [facility] [address] [place] [address] Dr. Brea Causey Hematocrit (Bld) [Volume fraction] 36.4 % Critically low 42.0-54.0 [facility] Comment on above: Performed By: #### U CLINT, CMP, LIPID, DBIL, PHOS, MG #### [facility] [address] [place] [address] Dr. Brea Causey Hemoglobin (Bld) [Mass/Vol] 12.3 g/dL Critically low 14.0-18.0 [facility] Comment on above: Performed By: #### U CLINT, CMP, LIPID, DBIL, PHOS, MG #### [facility] [address] [place] [address] Dr. Brea Causey IG # 0.03 10e3/ul Normal 0.00-0.03 [facility] Comment on above: Performed By: #### U CLINT, CMP, LIPID, DBIL, PHOS, MG #### [facility] [address] [place] [address] Dr. Brea Causey IG % 0.5 % Normal 0.0-0.5 [facility] Comment on above: Performed By: #### U CLINT, CMP, LIPID, DBIL, PHOS, MG #### [facility] [address] [place] [address] Dr. Brea Causey LYMPH # 0.9 103/ul Critically low 1.2-3.8 [facility] Comment on above: Performed By: #### U CLINT, CMP, LIPID, DBIL, PHOS, MG #### [facility] [address] [place] [address] Dr. Brea Causey Lymphocytes/100 WBC (Bld) 16.9 % Critically low 20.5-60.0 [facility] Comment on above: Performed By: #### U CLINT, CMP, LIPID, DBIL, PHOS, MG #### [facility] [address] [place] [address] Dr. Brea Causey MANUAL DIFF REQ NO Normal [facility] Comment on above: Performed By: #### U CLINT, CMP, LIPID, DBIL, PHOS, MG #### [facility] [address] [place] [address] Dr. Brea Causey MCH (RBC) [Entitic mass] 29.3 pg Normal 25.9-34.0 [facility] Comment on above: Performed By: #### U CLINT, CMP, LIPID, DBIL, PHOS, MG #### [facility] [address] [place] [address] Dr. Brea Causey MCHC (RBC) [Mass/Vol] 33.8 g/dL Normal 29.9-35.2 [facility] Comment on above: Performed By: #### U CLINT, CMP, LIPID, DBIL, PHOS, MG #### [facility] [address] [place] [address] Dr. Brea Causey MCV (RBC) [Entitic vol] 86.7 fL Normal 80.0-94.0 [facility] Comment on above: Performed By: #### U CLINT, CMP, LIPID, DBIL, PHOS, MG #### [facility] [address] [place] [address] Dr. Brea Causey MONO # 0.6 103/ul Normal 0.3-0.8 [facility] Comment on above: Performed By: #### U CLINT, CMP, LIPID, DBIL, PHOS, MG #### [facility] [address] [place] [address] Dr. Brea Causey Monocytes/100 WBC (Bld) 10.1 % Normal 1.7-12.0 [facility] Comment on above: Performed By: #### U CLINT, CMP, LIPID, DBIL, PHOS, MG #### [facility] [address] [place] [address] Dr. Brea Causey NEUT # 3.9 103/ul Normal 1.4-6.5 [facility] Comment on above: Performed By: #### U CLINT, CMP, LIPID, DBIL, PHOS, MG #### [facility] [address] [address] [address] Brea Causey Neutrophils/100 WBC (Bld) 69.5 % Normal 43.0-75.0 [facility] Comment on above: Performed By: #### U CLINT, CMP, LIPID, DBIL, PHOS, MG #### [facility] [address] [address] [address] Brea Causey Platelet mean volume (Bld) [Entitic vol] 9.2 fL Critically low 9.5-13.5 [facility] Comment on above: Performed By: #### U CLINT, CMP, LIPID, DBIL, PHOS, MG #### [facility] [address] [address] [address] Brea Causey PLT 228 103/ul Normal 150-450 [facility] Comment on above: Performed By: #### U CLINT, CMP, LIPID, DBIL, PHOS, MG #### [facility] [address] [address] [address] Brea Causey RBC 4.20 106/ul Critically low 4.70-6.10 [facility] Comment on above: Performed By: #### U CLINT, CMP, LIPID, DBIL, PHOS, MG #### [facility] [address] [address] [address] Brea Causey WBC 5.6 103/ul Normal 4.0-11.0 [facility] Comment on above: Performed By: #### U CLINT, CMP, LIPID, DBIL, PHOS, MG #### [facility] [address] [address] [address] Brea Causey LIPID PROFILEon 04-03-2022 CHOL-HDL RATIO NORM SEE BELOW Normal [facility] Comment on above: Result Comment: 3.3 - 4.4 LOW RISK 4.4 - 7.1 AVERAGE RISK 7.1 - 11.0 MODERATE RISK >11.0 HIGH RISK Performed By: #### U CLINT, CMP, LIPID, DBIL, PHOS, MG #### [facility] [address] [address] [address] Brea Causey Cholesterol [Mass/Vol] 84 mg/dL Normal <=200 [facility] Comment on above: Performed By: #### U CLINT, CMP, LIPID, DBIL, PHOS, MG #### [facility] [address] [address] [address] Brea Causey Cholesterol in HDL [Mass/Vol] 45 mg/dL Normal 40-60 [facility] Comment on above: Performed By: #### U CLINT, CMP, LIPID, DBIL, PHOS, MG #### [facility] [address] [address] [address] Brea Causey Cholesterol in LDL [Mass/Vol] 22.8 mg/dL Normal [facility] Comment on above: Performed By: #### U CLINT, CMP, LIPID, DBIL, PHOS, MG #### [facility] [address] [address] [address] Brea Causey Cholesterol.total/Cho lesterol in HDL [Mass ratio] 1.9 {ratio} Normal [facility] Comment on above: Performed By: #### U CLINT, CMP, LIPID, DBIL, PHOS, MG #### [facility] [address] [address] [address] Brea Causey HDL NORMAL > or = 60 mg/dl - LO W CARDIOVASCULAR RISK <40 mg/dl - HIGH CARDIOVASCULAR RISK Normal [facility] Comment on above: Performed By: #### U CLINT, CMP, LIPID, DBIL, PHOS, MG #### [facility] [address] [address] [address] Brea Causey LDL CALC NORMAL SEE BELOW Normal [facility] Comment on above: Result Comment: <100 mg/dl OPTIMAL 100 - 129 mg/dl NEAR OR ABOVE OPTIMAL 130 - 159 mg/dl BORDERLINE HIGH 160 - 189 mg/dl HIGH >190 mg/dl VERY HIGH Performed By: #### U CLINT, CMP, LIPID, DBIL, PHOS, MG #### [facility] [address] [address] [address] Brea Causey Triglyceride [Mass/Vol] 81 mg/dL Normal <=150 [facility] Comment on above: Performed By: #### U CLINT, CMP, LIPID, DBIL, PHOS, MG #### [facility] [address] [place] [address] Dr. Brea Causey VLDL CALC 16.2 mg/dL Normal [facility] Comment on above: Performed By: #### U CLINT, CMP, LIPID, DBIL, PHOS, MG #### [facility] [address] [place] [address] Dr. Brea Causey MAGNESIUMon 04-03-2022 Magnesium [Mass/Vol] 1.6 mg/dL Critically low 1.8-2.4 [facility] Comment on above: Performed By: #### U CLINT, CMP, LIPID, DBIL, PHOS, MG #### [facility] [address] [place] [address] Dr. Brea Causey PHOSPHORUSon 04-03-2022 Phosphate [Mass/Vol] 3.9 mg/dL Normal 2.6-4.7 [facility] Comment on above: Performed By: #### U CLINT, CMP, LIPID, DBIL, PHOS, MG #### [facility] [address] [place] [address] Dr. Brea Causey PROF 14(COMP METB)on 022 Albumin [Mass/Vol] 4.0 g/dL Normal 3.4-5.[address] [facility] Comment on above: Performed By: #### U CLINT, CMP, LIPID, DBIL, PHOS, MG #### [facility] [address] [place] [address] Dr. Brea Causey Albumin/Globulin [Mass ratio] 1.2 {ratio} Normal [facility] Comment on above: Performed By: #### U CLINT, CMP, LIPID, DBIL, PHOS, MG #### [facility] [address] [place] [address] Dr. Brea Causey ALP [Catalytic activity/Vol] 196 U/L Critically high 46-116 [facility] Comment on above: Performed By: #### U CLINT, CMP, LIPID, DBIL, PHOS, MG #### [facility] [address] [place] [address] Dr. Brea Causey ALT [Catalytic activity/Vol] 19 U/L Normal 16-63 [facility] Comment on above: Performed By: #### U CLINT, CMP, LIPID, DBIL, PHOS, MG #### [facility] [address] [place] [address] Dr. Brea Causey Anion gap [Moles/Vol] 10.2 mmol/L Normal [facility] Comment on above: Performed By: #### U CLINT, CMP, LIPID, DBIL, PHOS, MG #### [facility] [address] [place] [address] Dr. Brea Causey AST [Catalytic activity/Vol] 15 U/L Normal 15-37 [facility] Comment on above: Performed By: #### U CLINT, CMP, LIPID, DBIL, PHOS, MG #### [facility] [address] [place] [address] Dr. Brea Causey Bilirubin [Mass/Vol] 0.3 mg/dL Normal 0.2-1.0 [facility] Comment on above: Performed By: #### U CLINT, CMP, LIPID, DBIL, PHOS, MG #### [facility] [address] [place] [address] Dr. Brea Causey Calcium [Mass/Vol] 8.2 mg/dL Critically low 8.5-10.1 [facility] Comment on above: Performed By: #### U CLINT, CMP, LIPID, DBIL, PHOS, MG #### [facility] [address] [place] [address] Dr. Brea Causey Chloride [Moles/Vol] 97 mmol/L Critically low 98-107 [facility] Comment on above: Performed By: #### U CLINT, CMP, LIPID, DBIL, PHOS, MG #### [facility] [address] [place] [address] Dr. Brea Causey CO2 [Moles/Vol] 28.2 mmol/L Normal 21.0-32.0 [facility] Comment on above: Performed By: #### U CLINT, CMP, LIPID, DBIL, PHOS, MG #### [facility] [address] [address] Dr. Brea Causey Creatinine [Mass/Vol] 1.00 mg/dL Normal 0.70-1.30 [facility] Comment on above: Performed By: #### U CLINT, CMP, LIPID, DBIL, PHOS, MG #### [facility] [address] [address] [address] Brea Causey EGFR-AF MARSHALLESE >60 Normal >=60 [facility] Comment on above: Performed By: #### U CLINT, CMP, LIPID, DBIL, PHOS, MG #### [facility] [address] [place] [address] Dr. Brea Causey EGFR-NON AF MARSHALLESE >60 Normal >=60 [facility] Comment on above: Performed By: #### U CLINT, CMP, LIPID, DBIL, PHOS, MG #### [facility] [address] [address] [address] Brea Causey Globulin (S) [Mass/Vol] 3.3 g/dL Normal [facility] Comment on above: Performed By: #### U CLINT, CMP, LIPID, DBIL, PHOS, MG #### [facility] [address] [place] [address] Dr. Brea Causey Glucose [Mass/Vol] 164 mg/dL Critically high 74-106 [facility] Comment on above: Performed By: #### U CLINT, CMP, LIPID, DBIL, PHOS, MG #### [facility] [address] [place] [address] Dr. Brea Causey Potassium [Moles/Vol] 4.4 mmol/L Normal 3.5-5.1 [facility] Comment on above: Performed By: #### U CLINT, CMP, LIPID, DBIL, PHOS, MG #### [facility] [address] [address] [address] Brea Causey Protein [Mass/Vol] 7.3 g/dL Normal 6.4-8.[address] [facility] Comment on above: Performed By: #### U CLINT, CMP, LIPID, DBIL, PHOS, MG #### [facility] [address] [address] [address] Brea Causey Sodium [Moles/Vol] 131 mmol/L Critically low 136-145 [facility] Comment on above: Performed By: #### U CLINT, CMP, LIPID, DBIL, PHOS, MG #### [facility] [address] [address] [address] Brea Causey Urea nitrogen [Mass/Vol] 13.0 mg/dL Normal 7.0-18.0 [facility] Comment on above: Performed By: #### U CLINT, CMP, LIPID, DBIL, PHOS, MG #### [facility] [address] [address] [address] Brea Causey Urea nitrogen/Creatinine [Mass ratio] 13.0 mg/mg Normal [facility] Comment on above: Performed By: #### U CLINT, CMP, LIPID, DBIL, PHOS, MG #### [facility] [address] [place] [address] Dr. Brea Causey URIC ACID SERUMon 04-03-2022 Urate [Mass/Vol] 6.1 mg/dL Normal 3.5-7.2 [facility] Comment on above: Performed By: #### U CLINT, CMP, LIPID, DBIL, PHOS, MG #### [facility] [address] [address] [address] Brea Causey TESTOSTERONE, FREE,DIRECT, T OTALon 03-13-2022 Free Testosterone(Direct) 6.9 pg/mL Normal 6.6-18.1 [facility] Comment on above: Result Comment: Perf ormed at: BN Performed By: #### T ESTFRD #### [facility] [address] [place] [address] Dr. Brea Causey Testosterone [Mass/Vol] 428 ng/dL Normal 264-916 [facility] Comment on above: Result Comment: Adul t male reference interval is based on a population of healthy nonobese males (BMI <30) between 19 and 39 years old. daniel Harris.al. JCEM 2017,102;[id number]. PMID: [id number]. Performed at: CB Performed By: #### T ESTFRD #### [facility] [address] [place] [address] Dr. Brea Causey BK VIRUS PCR QUANTon 022 BKV DNA QUANT PCR PLASMA Negative Normal Negative [facility] Comment on above: Result Comment: No B K DNA detected. . The linear range of the assay is 22 - 100,000,000 IU/mL. Performed By: #### B KVIRUS #### [facility] [address] [place] [address] Dr. Brea Causey Log10 BKV DNA Plasma Normal [facility] Comment on above: Performed By: #### B KVIRUS #### [facility] [address] [place] [address] Dr. Brea Causey FK506 (TACROLIMUS) WHOLE BLO ODon 03-11-2022 Tacrolimus (FK506), Blood 4.7 ng/mL Normal 2.0-20.0 [facility] Comment on above: Result Comment: Trou gh (immediately following transplant) 15.0 . Trough (steady state, 2 weeks or more after transplant): 3.0 - 8.0 . Performed by LC-MS/MS technology. Performed By: #### C BC #### [facility] [address] [place] [address] Dr. Brea Causey BILIRUBIN CONJUGATED (DIRECT )on 03-08-2022 BILI, CONJUGATED 0.1 mg/dL Normal 0.0-0.2 [facility] Comment on above: Performed By: #### U CLINT, CMP, LIPID, DBIL, PHOS, MG #### [facility] [address] [place] [address] Dr. Brea Causey CBC AUTO DIFFon 03-08-2022 BASO # 0.0 103/ul Normal 0.0-0.1 [facility] Comment on above: Performed By: #### U CLINT, CMP, LIPID, DBIL, PHOS, MG #### [facility] [address] [place] [address] Dr. Brea Causey Basophils/100 WBC (Bld) 0.7 % Normal 0.2-2.0 [facility] Comment on above: Performed By: #### U CLINT, CMP, LIPID, DBIL, PHOS, MG #### [facility] [address] [place] [address] Dr. Brea Causey EO # 0.2 103/ul Normal 0.0-0.7 [facility] Comment on above: Performed By: #### U CLINT, CMP, LIPID, DBIL, PHOS, MG #### [facility] [address] [place] [address] Dr. Brea Causey Eosinophils/100 WBC (Bld) 3.1 % Normal 0.9-7.0 [facility] Comment on above: Performed By: #### U CLINT, CMP, LIPID, DBIL, PHOS, MG #### [facility] [address] [place] [address] Dr. Brea Causey Erythrocyte distribution width (RBC) [Ratio] 13.3 % Normal 11.0-15.0 [facility] Comment on above: Performed By: #### U CLINT, CMP, LIPID, DBIL, PHOS, MG #### [facility] [address] [place] [address] Dr. Brea Causey Hematocrit (Bld) [Volume fraction] 35.7 % Critically low 42.0-54.0 [facility] Comment on above: Performed By: #### U CLINT, CMP, LIPID, DBIL, PHOS, MG #### [facility] [address] [place] [address] Dr. Brea Causey Hemoglobin (Bld) [Mass/Vol] 12.0 g/dL Critically low 14.0-18.0 [facility] Comment on above: Performed By: #### U CLINT, CMP, LIPID, DBIL, PHOS, MG #### [facility] [address] [place] [address] Dr. Brea Causey IG # 0.06 10e3/ul Critically high 0.00-0.03 [facility] Comment on above: Performed By: #### U CLINT, CMP, LIPID, DBIL, PHOS, MG #### [facility] [address] [place] [address] Dr. Brea Causey IG % 1.0 % Critically high 0.0-0.5 [facility] Comment on above: Performed By: #### U CLINT, CMP, LIPID, DBIL, PHOS, MG #### [facility] [address] [place] [address] Dr. Brea Causey LYMPH # 0.8 103/ul Critically low 1.2-3.8 [facility] Comment on above: Performed By: #### U CLINT, CMP, LIPID, DBIL, PHOS, MG #### [facility] [address] [place] [address] Dr. Brea Causey Lymphocytes/100 WBC (Bld) 12.9 % Critically low 20.5-60.0 [facility] Comment on above: Performed By: #### U CLINT, CMP, LIPID, DBIL, PHOS, MG #### [facility] [address] [place] [address] Dr. Brea Causey MANUAL DIFF REQ NO Normal [facility] Comment on above: Performed By: #### U CLINT, CMP, LIPID, DBIL, PHOS, MG #### [facility] [address] [place] [address] Dr. Brea Causey MCH (RBC) [Entitic mass] 29.5 pg Normal 25.9-34.0 [facility] Comment on above: Performed By: #### U CLINT, CMP, LIPID, DBIL, PHOS, MG #### [facility] [address] [place] [address] Dr. Brea Causey MCHC (RBC) [Mass/Vol] 33.6 g/dL Normal 29.9-35.2 [facility] Comment on above: Performed By: #### U CLINT, CMP, LIPID, DBIL, PHOS, MG #### [facility] [address] [place] [address] Dr. Brea Causey MCV (RBC) [Entitic vol] 87.7 fL Normal 80.0-94.0 [facility] Comment on above: Performed By: #### U CLINT, CMP, LIPID, DBIL, PHOS, MG #### [facility] [address] [address] [address] Brea Causey MONO # 0.6 103/ul Normal 0.3-0.8 [facility] Comment on above: Performed By: #### U CLINT, CMP, LIPID, DBIL, PHOS, MG #### [facility] [address] [place] [address] Dr. Brea Causey Monocytes/100 WBC (Bld) 9.8 % Normal 1.7-12.0 [facility] Comment on above: Performed By: #### U CLINT, CMP, LIPID, DBIL, PHOS, MG #### [facility] [address] [place] [address] Dr. Brea Causey NEUT # 4.4 103/ul Normal 1.4-6.5 [facility] Comment on above: Performed By: #### U CLINT, CMP, LIPID, DBIL, PHOS, MG #### [facility] [address] [place] [address] Dr. Brea Causey Neutrophils/100 WBC (Bld) 72.5 % Normal 43.0-75.0 [facility] Comment on above: Performed By: #### U CLINT, CMP, LIPID, DBIL, PHOS, MG #### [facility] [address] [place] [address] Dr. Brea Causey Platelet mean volume (Bld) [Entitic vol] 9.6 fL Normal 9.5-13.5 [facility] Comment on above: Performed By: #### U CLINT, CMP, LIPID, DBIL, PHOS, MG #### [facility] [address] [place] [address] Dr. Brea Causey PLT 265 103/ul Normal 150-450 [facility] Comment on above: Performed By: #### U CLINT, CMP, LIPID, DBIL, PHOS, MG #### [facility] [address] [place] [address] Dr. Brea Causey RBC 4.07 106/ul Critically low 4.70-6.10 [facility] Comment on above: Performed By: #### U CLINT, CMP, LIPID, DBIL, PHOS, MG #### [facility] [address] [address] [address] Brea Causey WBC 6.0 103/ul Normal 4.0-11.0 [facility] Comment on above: Performed By: #### U CLINT, CMP, LIPID, DBIL, PHOS, MG #### [facility] [address] [address] [address] Brea Causey GLYCOHEMOGLOBIN A1Con 2021 ADA RECOMMENDATION SEE BELOW Normal [facility] Comment on above: Result Comment: ADA RECOMMENDED LIMIT 4.0 - 6.0 ADA THERAPEUTIC TARGET < 7.0 ACTION SUGGESTED > 7.0 Performed By: #### U CLINT, CMP, LIPID, DBIL, PHOS, MG #### [facility] [address] [address] [address] Brea Causey Glucose [Mass/Vol] 169 mg/dL Normal [facility] Comment on above: Performed By: #### U CLINT, CMP, LIPID, DBIL, PHOS, MG #### [facility] [address] [address] [address] Brea Causey HbA1c (Bld) [Mass fraction] 7.5 % Critically high 4.5-6.2 [facility] Comment on above: Performed By: #### U CLINT, CMP, LIPID, DBIL, PHOS, MG #### [facility] [address] [address] [address] Brea Causey LIPID PROFILEon 03-08-2022 CHOL-HDL RATIO NORM SEE BELOW Normal [facility] Comment on above: Result Comment: 3.3 - 4.4 LOW RISK 4.4 - 7.1 AVERAGE RISK 7.1 - 11.0 MODERATE RISK >11.0 HIGH RISK Performed By: #### U CLINT, CMP, LIPID, DBIL, PHOS, MG #### [facility] [address] [address] [address] Brea Causey Cholesterol [Mass/Vol] 77 mg/dL Normal <=200 [facility] Comment on above: Performed By: #### U CLINT, CMP, LIPID, DBIL, PHOS, MG #### [facility] [address] [address] [address] Brea Causey Cholesterol in HDL [Mass/Vol] 49 mg/dL Normal 40-60 [facility] Comment on above: Performed By: #### U CLINT, CMP, LIPID, DBIL, PHOS, MG #### [facility] [address] [address] [address] Brea Causey Cholesterol in LDL [Mass/Vol] 20.4 mg/dL Normal [facility] Comment on above: Performed By: #### U CLINT, CMP, LIPID, DBIL, PHOS, MG #### [facility] [address] [address] [address] Brea Causey Cholesterol.total/Cho lesterol in HDL [Mass ratio] 1.6 {ratio} Normal [facility] Comment on above: Performed By: #### U CLINT, CMP, LIPID, DBIL, PHOS, MG #### [facility] [address] [address] [address] Brea Causey HDL NORMAL > or = 60 mg/dl - LO W CARDIOVASCULAR RISK <40 mg/dl - HIGH CARDIOVASCULAR RISK Normal [facility] Comment on above: Performed By: #### U CLINT, CMP, LIPID, DBIL, PHOS, MG #### [facility] [address] [address] [address] Brea Causey LDL CALC NORMAL SEE BELOW Normal [facility] Comment on above: Result Comment: <100 mg/dl OPTIMAL 100 - 129 mg/dl NEAR OR ABOVE OPTIMAL 130 - 159 mg/dl BORDERLINE HIGH 160 - 189 mg/dl HIGH >190 mg/dl VERY HIGH Performed By: #### U CLINT, CMP, LIPID, DBIL, PHOS, MG #### [facility] [address] [address] [address] Brea Causey Triglyceride [Mass/Vol] 38 mg/dL Normal <=150 [facility] Comment on above: Performed By: #### U CLINT, CMP, LIPID, DBIL, PHOS, MG #### [facility] [address] [address] [address] Brea Causey VLDL CALC 7.6 mg/dL Normal [facility] Comment on above: Performed By: #### U CLINT, CMP, LIPID, DBIL, PHOS, MG #### [facility] [address] [place] [address] Dr. Brea Causey MAGNESIUMon 03-08-2022 Magnesium [Mass/Vol] 1.5 mg/dL Critically low 1.8-2.4 [facility] Comment on above: Performed By: #### U CLINT, CMP, LIPID, DBIL, PHOS, MG #### [facility] [address] [place] [address] Dr. Brea Causey PHOSPHORUSon 03-08-2022 Phosphate [Mass/Vol] 3.6 mg/dL Normal 2.6-4.7 [facility] Comment on above: Performed By: #### U CLINT, CMP, LIPID, DBIL, PHOS, MG #### [facility] [address] [place] [address] Dr. Brea Causey PROF 14(COMP METB)on 022 Albumin [Mass/Vol] 4.0 g/dL Normal 3.4-5.[address] [facility] Comment on above: Performed By: #### U CLINT, CMP, LIPID, DBIL, PHOS, MG #### [facility] [address] [place] [address] Dr. Brea Causey Albumin/Globulin [Mass ratio] 1.2 {ratio} Normal [facility] Comment on above: Performed By: #### U CLINT, CMP, LIPID, DBIL, PHOS, MG #### [facility] [address] [place] [address] Dr. Brea Causey ALP [Catalytic activity/Vol] 176 U/L Critically high 46-116 [facility] Comment on above: Performed By: #### U CLINT, CMP, LIPID, DBIL, PHOS, MG #### [facility] [address] [place] [address] Dr. Brea Causey ALT [Catalytic activity/Vol] 21 U/L Normal 16-63 [facility] Comment on above: Performed By: #### U CLINT, CMP, LIPID, DBIL, PHOS, MG #### [facility] [address] [place] [address] Dr. Brea Causey Anion gap [Moles/Vol] 12.0 mmol/L Normal [facility] Comment on above: Performed By: #### U CLINT, CMP, LIPID, DBIL, PHOS, MG #### [facility] [address] [place] [address] Dr. Brea Causey AST [Catalytic activity/Vol] 13 U/L Critically low 15-37 [facility] Comment on above: Performed By: #### U CLINT, CMP, LIPID, DBIL, PHOS, MG #### [facility] [address] [place] [address] Dr. Brea Causey Bilirubin [Mass/Vol] 0.3 mg/dL Normal 0.2-1.0 [facility] Comment on above: Performed By: #### U CLINT, CMP, LIPID, DBIL, PHOS, MG #### [facility] [address] [place] [address] Dr. Brea Causey Calcium [Mass/Vol] 7.9 mg/dL Critically low 8.5-10.1 [facility] Comment on above: Performed By: #### U CLINT, CMP, LIPID, DBIL, PHOS, MG #### [facility] [address] [place] [address] Dr. Brea Causey Chloride [Moles/Vol] 100 mmol/L Normal 98-107 [facility] Comment on above: Performed By: #### U CLINT, CMP, LIPID, DBIL, PHOS, MG #### [facility] [address] [place] [address] Dr. Brea Causey CO2 [Moles/Vol] 27.3 mmol/L Normal 21.0-32.0 [facility] Comment on above: Performed By: #### U CLINT, CMP, LIPID, DBIL, PHOS, MG #### [facility] [address] [place] [address] Dr. Brea Causey Creatinine [Mass/Vol] 1.00 mg/dL Normal 0.70-1.30 [facility] Comment on above: Performed By: #### U CLINT, CMP, LIPID, DBIL, PHOS, MG #### [facility] [address] [address] [address] Brea Causey EGFR-AF MARSHALLESE >60 Normal >=60 [facility] Comment on above: Performed By: #### U CLINT, CMP, LIPID, DBIL, PHOS, MG #### [facility] [address] [address] [address] Brea Causey EGFR-NON AF MARSHALLESE >60 Normal >=60 [facility] Comment on above: Performed By: #### U CLINT, CMP, LIPID, DBIL, PHOS, MG #### [facility] [address] [address] [address] Brea Causey Globulin (S) [Mass/Vol] 3.3 g/dL Normal [facility] Comment on above: Performed By: #### U CLINT, CMP, LIPID, DBIL, PHOS, MG #### [facility] [address] [address] [address] Brea Causey Glucose [Mass/Vol] 155 mg/dL Critically high 74-106 [facility] Comment on above: Performed By: #### U CLINT, CMP, LIPID, DBIL, PHOS, MG #### [facility] [address] [address] [address] Brea Causey Potassium [Moles/Vol] 4.3 mmol/L Normal 3.5-5.1 [facility] Comment on above: Performed By: #### U CLINT, CMP, LIPID, DBIL, PHOS, MG #### [facility] [address] [address] [address] Brea Causey Protein [Mass/Vol] 7.3 g/dL Normal 6.4-8.[address] [facility] Comment on above: Performed By: #### U CLINT, CMP, LIPID, DBIL, PHOS, MG #### [facility] [address] [address] [address] Brea Causey Sodium [Moles/Vol] 135 mmol/L Critically low 136-145 [facility] Comment on above: Performed By: #### U CLINT, CMP, LIPID, DBIL, PHOS, MG #### [facility] [address] [place] [address] Dr. Brea Causey Urea nitrogen [Mass/Vol] 13.0 mg/dL Normal 7.0-18.0 [facility] Comment on above: Performed By: #### U CLINT, CMP, LIPID, DBIL, PHOS, MG #### [facility] [address] [address] [address] Brea Causey Urea nitrogen/Creatinine [Mass ratio] 13.0 mg/mg Normal [facility] Comment on above: Performed By: #### U CLINT, CMP, LIPID, DBIL, PHOS, MG #### [facility] [address] [place] [address] Dr. Brea Causey URIC ACID SERUMon 03-08-2022 Urate [Mass/Vol] 7.3 mg/dL Critically high 3.5-7.2 [facility] Comment on above: Performed By: #### U CLINT, CMP, LIPID, DBIL, PHOS, MG #### [facility] [address] [address] [address] Brea Snyder 03-05-2022 L - -------- Specimen: [id number] Received: 03/05/22 Status: CHERI Irene Num: [id number] Spec Type: Surgical Subm Dr: Tj Wells MD Tissues: A Colon Biopsy (COLON BX) B Colon Biopsy (DIVERTICULAR COLITIS) Procedures: HE Stain/4, Gross/Micro L4/2 -------- Age/ Patient Sex Location Account Attending Physician -------- Roger Suarez 71/M [id number] Tj Wells MD -------- SPEC NUM: [id number] RECD: 03/05/22 STATUS: CHERI REMeera NUM: [id number] ESTEFANI: 03/05/22 DR: Tj Wells MD ENTERED: 03/05/[address]: MICHELLE TYPE: Surgical DEPT: S ORDERED: [...] in one cassette labeled B1. -------- Specimen: [id number] Received: 03/05/22 Status: CHERI Bonilla Num: [id number] Spec Type: Surgical Subm Dr: Tj Wells MD Tissues: A Colon Biopsy (COLON BX) B Colon Biopsy (DIVERTICULAR COLITIS) Procedures: HE Stain/4, Gross/Micro L4/2 -------- Patient: Roger Suarez [id number] (Continued) -------- Specimen: [id number] Received: 03/05/22 (Continued) Signed (signature on file) Kalpana Shaw MD 03/07/22 1025 -------- Specimen: [id number] Received: 03/05/22 Status: CHERI Bonilla Num: [id number] Spec Type: Surgical Subm Dr: Tj Wells MD Tissues: A Colon Biopsy (COLON BX) B Colon Biopsy (DIVERTICULAR COLITIS) Procedures: HE Stain/4, Gross/Micro L4/2 -------- Patient: SuarezRoger [id number] (Continued) -------- Specimen: [id number] Received: 03/05/22 (Continued) Microscopic Description A. Two glass slides with H E stained material have been examined. The microscopic findings support the above pathologic diagnosis. B. Two glass slides with H E stained material have been examined. The microscopic findings support the above pathologic diagnosis. CPT Codes 70033?2 -------- -------- Specimen: [id number] Received: 03/05/22 Status: CHERI Bonilla Num: [id number] Spec Type: Surgical Subm Dr: Tj Wells MD Tissues: A Colon Biopsy (COLON BX) B Colon Biopsy (DIVERTICULAR COLITIS) Procedures: HE Stain/4, Gross/Micro L4/2 -------- Patient: Roger Suarez Tyson [id number] (Continued) -------- Signed (signature on file) Kalpana Shaw MD 03/07/[address] [facility] COVID-19 Antigenon 2 COVID-19 [facility] [...] developed and its performance characteristic determined by [employer] and validated at [facility] System. This test has not been [...] for SARS Antigen by ROCHELLE PERFORMED BY: [place] [address] PATHOLOGIST PUBLIC HEALTH DIRECTOR FEI WOODRUFF M.D. Normal [facility] Comment on above: Performed By: #### C OVID-19 MARQUISE, SOFIANEG #### [address] COVID-19 SOFIAOrdered By: Sheila Wells on 03-01-2022 SARS-CoV+SARS-CoV-2 (COVID-19) Ag IA.rapid Ql (Resp) Negative Negative [facility] Comment on above: This is a duplicate Marquise SARS Antigen (ROCHELLE) result to be used for statistical tracking purpose only. No Panel InformationOrdered By: Tj Wells on 03-01-2022 SARS Antigen (LFIA) [facility] Marquise Ag Negativeon 03-01-20 22 Marquise Ag Negative Negative Normal Negative [facility] Comment on above: Result Comment: This is a duplicate Marquise SARS Antigen (ROCHELLE) result to be used for statistical tracking purpose only. PERFORMED BY: [place] [address] PATHOLOGIST PUBLIC HEALTH DIRECTOR FEI WOODRUFF M.D. Performed By: #### C OVID-19 MARQUISE, SOFIANEG #### [facility] [address] FK506 (TACROLIMUS) WHOLE BLO ODon 02-05-2022 Tacrolimus (FK506), Blood 5.4 ng/mL Normal 2.0-20.0 [facility] Comment on above: Result Comment: Trou gh (immediately following transplant) 15.0 . Trough (steady state, 2 weeks or more after transplant): 3.0 - 8.0 . Performed by LC-MS/MS technology. Performed By: #### U CLINT, CMP, LIPID, DBIL, PHOS, MG #### [facility] [address] [place] [address] Dr. Brea Causey BILIRUBIN CONJUGATED (DIRECT )on 02-01-2022 BILI, CONJUGATED 0.1 mg/dL Normal 0.0-0.2 [facility] Comment on above: Performed By: #### C BC #### [facility] [address] [place] [address] Dr. Brea Causey CBC AUTO DIFFon 02-01-2022 BASO # 0.0 103/ul Normal 0.0-0.1 [facility] Comment on above: Performed By: #### B KVIRUS #### [facility] [address] [place] [address] Dr. Brea Causey Basophils/100 WBC (Bld) 0.6 % Normal 0.2-2.0 [facility] Comment on above: Performed By: #### B KVIRUS #### [facility] [address] [place] [address] Dr. Brea Causey EO # 0.2 103/ul Normal 0.0-0.7 [facility] Comment on above: Performed By: #### B KVIRUS #### [facility] [address] [place] [address] Dr. Brea Causey Eosinophils/100 WBC (Bld) 3.5 % Normal 0.9-7.0 [facility] Comment on above: Performed By: #### B KVIRUS #### [facility] [address] [place] [address] Dr. Brea Causey Erythrocyte distribution width (RBC) [Ratio] 13.0 % Normal 11.0-15.0 [facility] Comment on above: Performed By: #### B KVIRUS #### [facility] [address] [place] [address] Dr. Brea Causey Hematocrit (Bld) [Volume fraction] 36.9 % Critically low 42.0-54.0 [facility] Comment on above: Performed By: #### B KVIRUS #### [facility] [address] [place] [address] Dr. Brea Causey Hemoglobin (Bld) [Mass/Vol] 12.0 g/dL Critically low 14.0-18.0 [facility] Comment on above: Performed By: #### B KVIRUS #### [facility] [address] [place] [address] Dr. Brea Causey IG # 0.07 10e3/ul Critically high 0.00-0.03 [facility] Comment on above: Performed By: #### B KVIRUS #### [facility] [address] [place] [address] Dr. Brea Causey IG % 1.0 % Critically high 0.0-0.5 [facility] Comment on above: Performed By: #### B KVIRUS #### [facility] [address] [place] [address] Dr. Brea Causey LYMPH # 1.0 103/ul Critically low 1.2-3.8 [facility] Comment on above: Performed By: #### B KVIRUS #### [facility] [address] [place] [address] Dr. Brea Causey Lymphocytes/100 WBC (Bld) 14.2 % Critically low 20.5-60.0 [facility] Comment on above: Performed By: #### B KVIRUS #### [facility] [address] [place] [address] Dr. Brea Causey MANUAL DIFF REQ NO Normal [facility] Comment on above: Performed By: #### B KVIRUS #### [facility] [address] [place] [address] Dr. Brea Causey MCH (RBC) [Entitic mass] 29.1 pg Normal 25.9-34.0 [facility] Comment on above: Performed By: #### B KVIRUS #### [facility] [address] [place] [address] Dr. Brea Causey MCHC (RBC) [Mass/Vol] 32.5 g/dL Normal 29.9-35.2 [facility] Comment on above: Performed By: #### B KVIRUS #### [facility] [address] [place] [address] Dr. Brea Causey MCV (RBC) [Entitic vol] 89.6 fL Normal 80.0-94.0 [facility] Comment on above: Performed By: #### B KVIRUS #### [facility] [address] [place] [address] Dr. Brea Causey MONO # 0.7 103/ul Normal 0.3-0.8 [facility] Comment on above: Performed By: #### B KVIRUS #### [facility] [address] [place] [address] Dr. Brea Causey Monocytes/100 WBC (Bld) 9.9 % Normal 1.7-12.0 [facility] Comment on above: Performed By: #### B KVIRUS #### [facility] [address] [place] [address] Dr. Brea Causey NEUT # 4.9 103/ul Normal 1.4-6.5 [facility] Comment on above: Performed By: #### B KVIRUS #### [facility] [address] [place] [address] Dr. Brea Causey Neutrophils/100 WBC (Bld) 70.8 % Normal 43.0-75.0 [facility] Comment on above: Performed By: #### B KVIRUS #### [facility] [address] [place] [address] Dr. Brea Causey Platelet mean volume (Bld) [Entitic vol] 9.6 fL Normal 9.5-13.5 [facility] Comment on above: Performed By: #### B KVIRUS #### [facility] [address] [place], [place] [id number] Dr. Brea Causey PLT 247 103/ul Normal 150-450 [facility] Comment on above: Performed By: #### B KVIRUS #### [facility] [address] [address] [address] Brea Causey RBC 4.12 106/ul Critically low 4.70-6.10 [facility] Comment on above: Performed By: #### B KVIRUS #### [facility] [address] [place] [address] Dr. Brea Causey WBC 6.9 103/ul Normal 4.0-11.0 [facility] Comment on above: Performed By: #### B KVIRUS #### [facility] [address] [place] [address] Dr. Brea Causey LIPID PROFILEon 02-01-2022 CHOL-HDL RATIO NORM SEE BELOW Normal [facility] Comment on above: Result Comment: 3.3 - 4.4 LOW RISK 4.4 - 7.1 AVERAGE RISK 7.1 - 11.0 MODERATE RISK >11.0 HIGH RISK Performed By: #### C BC #### [facility] [address] [place] [address] Dr. Brea Causey Cholesterol [Mass/Vol] 77 mg/dL Normal <=200 [facility] Comment on above: Performed By: #### C BC #### [facility] [address] [place] [address] Dr. Brea Causey Cholesterol in HDL [Mass/Vol] 40 mg/dL Normal 40-60 [facility] Comment on above: Performed By: #### C BC #### [facility] [address] [place] [address] Dr. Brea Causey Cholesterol in LDL [Mass/Vol] 21.0 mg/dL Normal [facility] Comment on above: Performed By: #### C BC #### [facility] [address] [place] [address] Dr. Brea Causey Cholesterol.total/Cho lesterol in HDL [Mass ratio] 1.9 {ratio} Normal [facility] Comment on above: Performed By: #### C BC #### [facility] [address] [address] [address] Brea Causey HDL NORMAL > or = 60 mg/dl - LO W CARDIOVASCULAR RISK <40 mg/dl - HIGH CARDIOVASCULAR RISK Normal [facility] Comment on above: Performed By: #### C BC #### [facility] [address] [address] [address] Brea Causey LDL CALC NORMAL SEE BELOW Normal [facility] Comment on above: Result Comment: <100 mg/dl OPTIMAL 100 - 129 mg/dl NEAR OR ABOVE OPTIMAL 130 - 159 mg/dl BORDERLINE HIGH 160 - 189 mg/dl HIGH >190 mg/dl VERY HIGH Performed By: #### C BC #### [facility] [address] [address] [address] Brea Causey Triglyceride [Mass/Vol] 80 mg/dL Normal <=150 [facility] Comment on above: Performed By: #### C BC #### [facility] [address] [address] [address] Brea Causey VLDL CALC 16.0 mg/dL Normal [facility] Comment on above: Performed By: #### C BC #### [facility] [address] [address] [address] Brea Causey MAGNESIUMon 02-01-2022 Magnesium [Mass/Vol] 1.5 mg/dL Critically low 1.8-2.4 [facility] Comment on above: Performed By: #### C BC #### [facility] [address] [address] [address] Brea Causey PHOSPHORUSon 02-01-2022 Phosphate [Mass/Vol] 4.1 mg/dL Normal 2.6-4.7 [facility] Comment on above: Performed By: #### C BC #### [facility] [address] [address] [address] Brea Causey PROF 14(COMP METB)on 022 Albumin [Mass/Vol] 4.0 g/dL Normal 3.4-5.[address] [facility] Comment on above: Performed By: #### C BC #### [facility] [address] [place] [address] Dr. Brea Causey Albumin/Globulin [Mass ratio] 1.3 {ratio} Normal [facility] Comment on above: Performed By: #### C BC #### [facility] [address] [place] [address] Dr. Brea Causey ALP [Catalytic activity/Vol] 162 U/L Critically high 46-116 [facility] Comment on above: Performed By: #### C BC #### [facility] [address] [place] [address] Dr. Brea Causey ALT [Catalytic activity/Vol] 25 U/L Normal 16-63 [facility] Comment on above: Performed By: #### C BC #### [facility] [address] [place] [address] Dr. Brea Causey Anion gap [Moles/Vol] 11.1 mmol/L Normal [facility] Comment on above: Performed By: #### C BC #### [facility] [address] [place] [address] Dr. Brea Causey AST [Catalytic activity/Vol] 16 U/L Normal 15-37 [facility] Comment on above: Performed By: #### C BC #### [facility] [address] [place] [address] Dr. Brea Causey Bilirubin [Mass/Vol] 0.4 mg/dL Normal 0.2-1.0 [facility] Comment on above: Performed By: #### C BC #### [facility] [address] [place] [address] Dr. Brea Causey Calcium [Mass/Vol] 8.2 mg/dL Critically low 8.5-10.1 [facility] Comment on above: Performed By: #### C BC #### [facility] [address] [place] [address] Dr. Brea Causey Chloride [Moles/Vol] 99 mmol/L Normal 98-107 [facility] Comment on above: Performed By: #### C BC #### [facility] [address] [place] [address] Dr. Brea Causey CO2 [Moles/Vol] 28.1 mmol/L Normal 21.0-32.0 [facility] Comment on above: Performed By: #### C BC #### [facility] [address] [address] [address] Brea Causey Creatinine [Mass/Vol] 1.13 mg/dL Normal 0.70-1.30 [facility] Comment on above: Performed By: #### C BC #### [facility] [address] [address] [address] Brea Causey EGFR-AF MARSHALLESE >60 Normal >=60 [facility] Comment on above: Performed By: #### C BC #### [facility] [address] [address] [address] Brea Causey EGFR-NON AF MARSHALLESE >60 Normal >=60 [facility] Comment on above: Performed By: #### C BC #### [facility] [address] [place] [address] Dr. Brea Causey Globulin (S) [Mass/Vol] 3.1 g/dL Normal [facility] Comment on above: Performed By: #### C BC #### [facility] [address] [place] [address] Dr. Brea Causey Glucose [Mass/Vol] 177 mg/dL Critically high 74-106 [facility] Comment on above: Performed By: #### C BC #### [facility] [address] [place] [address] Dr. Brea Causey Potassium [Moles/Vol] 5.2 mmol/L Critically high 3.5-5.1 [facility] Comment on above: Performed By: #### C BC #### [facility] [address] [place] [address] Dr. Brea Causey Protein [Mass/Vol] 7.1 g/dL Normal 6.4-8.[address] [facility] Comment on above: Performed By: #### C BC #### [facility] [address] [place] [address] Dr. Brea Causey Sodium [Moles/Vol] 133 mmol/L Critically low 136-145 [facility] Comment on above: Performed By: #### C BC #### [facility] [address] [place] [address] Dr. Brea Causey Urea nitrogen [Mass/Vol] 12.0 mg/dL Normal 7.0-18.0 [facility] Comment on above: Performed By: #### C BC #### [facility] [address] [place] [address] Dr. Brea Causey Urea nitrogen/Creatinine [Mass ratio] 10.6 mg/mg Normal [facility] Comment on above: Performed By: #### C BC #### [facility] [address] [place] [address] Dr. Brea Causey URIC ACID SERUMon 02-01-2022 Urate [Mass/Vol] 7.7 mg/dL Critically high 3.5-7.2 [facility] Comment on above: Performed By: #### C BC #### [facility] [address] [place] [address] Dr. Brea Causey FK506 (TACROLIMUS) WHOLE BLO ODon 01-06-2022 Tacrolimus (FK506), Blood 11.4 ng/mL Normal 2.0-20.0 [facility] Comment on above: Result Comment: Trou gh (immediately following transplant) 15.0 . Trough (steady state, 2 weeks or more after transplant): 3.0 - 8.0 . Performed by LC-MS/MS technology. Performed By: #### B KVIRUS #### [facility] [address] [place] [address] Dr. Brea Causey BILIRUBIN CONJUGATED (DIRECT )on 01-04-2022 BILI, CONJUGATED 0.1 mg/dL Normal 0.0-0.2 [facility] Comment on above: Performed By: #### U CLINT, CMP, LIPID, DBIL, PHOS, MG #### [facility] [address] [place] [address] Dr. Brea Causey BOX TEST SENT OUTon 01-05-20 22 SENT TO REF LAB 01/04/2022 Normal [facility] Comment on above: Performed By: #### U CLINT, CMP, LIPID, DBIL, PHOS, MG #### [facility] [address] [place] [address] Dr. Brea Causey CBC AUTO DIFFon 01-04-2022 BASO # 0.0 103/ul Normal 0.0-0.1 [facility] Comment on above: Performed By: #### U CLINT, CMP, LIPID, DBIL, PHOS, MG #### [facility] [address] [address] [address] Brea Causey Basophils/100 WBC (Bld) 0.5 % Normal 0.2-2.0 [facility] Comment on above: Performed By: #### U CLINT, CMP, LIPID, DBIL, PHOS, MG #### [facility] [address] [place] [address] Dr. Brea Causey EO # 0.3 103/ul Normal 0.0-0.7 [facility] Comment on above: Performed By: #### U CLINT, CMP, LIPID, DBIL, PHOS, MG #### [facility] [address] [place] [address] Dr. Brea Causey Eosinophils/100 WBC (Bld) 3.9 % Normal 0.9-7.0 [facility] Comment on above: Performed By: #### U CLINT, CMP, LIPID, DBIL, PHOS, MG #### [facility] [address] [place] [address] Dr. Brea Causey Erythrocyte distribution width (RBC) [Ratio] 13.1 % Normal 11.0-15.0 [facility] Comment on above: Performed By: #### U CLINT, CMP, LIPID, DBIL, PHOS, MG #### [facility] [address] [place] [address] Dr. Brea Causey Hematocrit (Bld) [Volume fraction] 37.4 % Critically low 42.0-54.0 [facility] Comment on above: Performed By: #### U CLINT, CMP, LIPID, DBIL, PHOS, MG #### [facility] [address] [place] [address] Dr. Brea Causey Hemoglobin (Bld) [Mass/Vol] 12.0 g/dL Critically low 14.0-18.0 [facility] Comment on above: Performed By: #### U CLINT, CMP, LIPID, DBIL, PHOS, MG #### [facility] [address] [address] [address] Brea Causey IG # 0.07 10e3/ul Critically high 0.00-0.03 [facility] Comment on above: Performed By: #### U CLINT, CMP, LIPID, DBIL, PHOS, MG #### [facility] [address] [address] [address] Brea Causey IG % 1.1 % Critically high 0.0-0.5 [facility] Comment on above: Performed By: #### U CLINT, CMP, LIPID, DBIL, PHOS, MG #### [facility] [address] [place] [address] Dr. Brea Causey LYMPH # 0.8 103/ul Critically low 1.2-3.8 [facility] Comment on above: Performed By: #### U CLINT, CMP, LIPID, DBIL, PHOS, MG #### [facility] [address] [place] [address] Dr. Brea Causey Lymphocytes/100 WBC (Bld) 12.2 % Critically low 20.5-60.0 [facility] Comment on above: Performed By: #### U CLINT, CMP, LIPID, DBIL, PHOS, MG #### [facility] [address] [place] [address] Dr. Brea Causey MANUAL DIFF REQ NO Normal [facility] Comment on above: Performed By: #### U CLINT, CMP, LIPID, DBIL, PHOS, MG #### [facility] [address] [place] [address] Dr. Brea Causey MCH (RBC) [Entitic mass] 29.1 pg Normal 25.9-34.0 [facility] Comment on above: Performed By: #### U CLINT, CMP, LIPID, DBIL, PHOS, MG #### [facility] [address] [place] [address] Dr. Brea Causey MCHC (RBC) [Mass/Vol] 32.1 g/dL Normal 29.9-35.2 [facility] Comment on above: Performed By: #### U CLINT, CMP, LIPID, DBIL, PHOS, MG #### [facility] [address] [place] [address] Dr. Brea Causey MCV (RBC) [Entitic vol] 90.6 fL Normal 80.0-94.0 [facility] Comment on above: Performed By: #### U CLINT, CMP, LIPID, DBIL, PHOS, MG #### [facility] [address] [place] [address] Dr. Brea Causey MONO # 0.5 103/ul Normal 0.3-0.8 [facility] Comment on above: Performed By: #### U CLINT, CMP, LIPID, DBIL, PHOS, MG #### [facility] [address] [place] [address] Dr. Brea Causey Monocytes/100 WBC (Bld) 8.0 % Normal 1.7-12.0 [facility] Comment on above: Performed By: #### U CLINT, CMP, LIPID, DBIL, PHOS, MG #### [facility] [address] [place] [address] Dr. Brea Causey NEUT # 5.0 103/ul Normal 1.4-6.5 [facility] Comment on above: Performed By: #### U CLINT, CMP, LIPID, DBIL, PHOS, MG #### [facility] [address] [place] [address] Dr. Brea Causey Neutrophils/100 WBC (Bld) 74.3 % Normal 43.0-75.0 [facility] Comment on above: Performed By: #### U CLINT, CMP, LIPID, DBIL, PHOS, MG #### [facility] [address] [place] [address] Dr. Brea Causey Platelet mean volume (Bld) [Entitic vol] 9.5 fL Normal 9.5-13.5 [facility] Comment on above: Performed By: #### U CLINT, CMP, LIPID, DBIL, PHOS, MG #### [facility] [address] [place] [address] Dr. Brea Causey PLT 243 103/ul Normal 150-450 [facility] Comment on above: Performed By: #### U CLINT, CMP, LIPID, DBIL, PHOS, MG #### [facility] [address] [address] [address] Brea Causey RBC 4.13 106/ul Critically low 4.70-6.10 [facility] Comment on above: Performed By: #### U CLINT, CMP, LIPID, DBIL, PHOS, MG #### [facility] [address] [address] [address] Brea Causey WBC 6.7 103/ul Normal 4.0-11.0 [facility] Comment on above: Performed By: #### U CLINT, CMP, LIPID, DBIL, PHOS, MG #### [facility] [address] [place] [address] Dr. Brea Causey LIPID PROFILEon 01-04-2022 CHOL-HDL RATIO NORM SEE BELOW Normal [facility] Comment on above: Result Comment: 3.3 - 4.4 LOW RISK 4.4 - 7.1 AVERAGE RISK 7.1 - 11.0 MODERATE RISK >11.0 HIGH RISK Performed By: #### U CLINT, CMP, LIPID, DBIL, PHOS, MG #### [facility] [address] [place] [address] Dr. Brea Causey Cholesterol [Mass/Vol] 81 mg/dL Normal <=200 [facility] Comment on above: Performed By: #### U CLINT, CMP, LIPID, DBIL, PHOS, MG #### [facility] [address] [place] [address] Dr. Brea Causey Cholesterol in HDL [Mass/Vol] 43 mg/dL Normal 40-60 [facility] Comment on above: Performed By: #### U CLINT, CMP, LIPID, DBIL, PHOS, MG #### [facility] [address] [place] [address] Dr. Brea Causey Cholesterol in LDL [Mass/Vol] 26.0 mg/dL Normal [facility] Comment on above: Performed By: #### U CLINT, CMP, LIPID, DBIL, PHOS, MG #### [facility] [address] [address] [address] Brea Causey Cholesterol.total/Cho lesterol in HDL [Mass ratio] 1.9 {ratio} Normal [facility] Comment on above: Performed By: #### U CLINT, CMP, LIPID, DBIL, PHOS, MG #### [facility] [address] [address] [address] Brea Causey HDL NORMAL > or = 60 mg/dl - LO W CARDIOVASCULAR RISK <40 mg/dl - HIGH CARDIOVASCULAR RISK Normal [facility] Comment on above: Performed By: #### U CLINT, CMP, LIPID, DBIL, PHOS, MG #### [facility] [address] [address] [address] Brea Causey LDL CALC NORMAL SEE BELOW Normal [facility] Comment on above: Result Comment: <100 mg/dl OPTIMAL 100 - 129 mg/dl NEAR OR ABOVE OPTIMAL 130 - 159 mg/dl BORDERLINE HIGH 160 - 189 mg/dl HIGH >190 mg/dl VERY HIGH Performed By: #### U CLINT, CMP, LIPID, DBIL, PHOS, MG #### [facility] [address] [address] [address] Brea Causey Triglyceride [Mass/Vol] 60 mg/dL Normal <=150 [facility] Comment on above: Performed By: #### U CLINT, CMP, LIPID, DBIL, PHOS, MG #### [facility] [address] [address] [address] Brea Causey VLDL CALC 12.0 mg/dL Normal [facility] Comment on above: Performed By: #### U CLINT, CMP, LIPID, DBIL, PHOS, MG #### [facility] [address] [address] [address] Brea Causey MAGNESIUMon 01-04-2022 Magnesium [Mass/Vol] 1.4 mg/dL Critically low 1.8-2.4 [facility] Comment on above: Performed By: #### U CLINT, CMP, LIPID, DBIL, PHOS, MG #### [facility] [address] [address] [address] Brea Causey PHOSPHORUSon 01-04-2022 Phosphate [Mass/Vol] 4.4 mg/dL Normal 2.6-4.7 [facility] Comment on above: Performed By: #### U CLINT, CMP, LIPID, DBIL, PHOS, MG #### [facility] [address] [place] [address] Dr. Brea Causey PROF 14(COMP METB)on 022 Albumin [Mass/Vol] 3.9 g/dL Normal 3.4-5.[address] [facility] Comment on above: Performed By: #### U CLINT, CMP, LIPID, DBIL, PHOS, MG #### [facility] [address] [address] [address] Brea Causey Albumin/Globulin [Mass ratio] 1.2 {ratio} Normal [facility] Comment on above: Performed By: #### U CLINT, CMP, LIPID, DBIL, PHOS, MG #### [facility] [address] [place] [address] Dr. Brea Causey ALP [Catalytic activity/Vol] 155 U/L Critically high 46-116 [facility] Comment on above: Performed By: #### U CLINT, CMP, LIPID, DBIL, PHOS, MG #### [facility] [address] [place] [address] Dr. Brea Causey ALT [Catalytic activity/Vol] 27 U/L Normal 16-63 [facility] Comment on above: Performed By: #### U CLINT, CMP, LIPID, DBIL, PHOS, MG #### [facility] [address] [address] [address] Brea Causey Anion gap [Moles/Vol] 14.6 mmol/L Normal [facility] Comment on above: Performed By: #### U CLINT, CMP, LIPID, DBIL, PHOS, MG #### [facility] [address] [place] [address] Dr. Brea Causey AST [Catalytic activity/Vol] 17 U/L Normal 15-37 [facility] Comment on above: Performed By: #### U CLINT, CMP, LIPID, DBIL, PHOS, MG #### [facility] [address] [address] [address] Brea Causey Bilirubin [Mass/Vol] 0.3 mg/dL Normal 0.2-1.0 [facility] Comment on above: Performed By: #### U CLINT, CMP, LIPID, DBIL, PHOS, MG #### [facility] [address] [place] [address] Dr. Brea Causey Calcium [Mass/Vol] 8.1 mg/dL Critically low 8.5-10.1 [facility] Comment on above: Performed By: #### U CLINT, CMP, LIPID, DBIL, PHOS, MG #### [facility] [address] [address] [address] Brea Causey Chloride [Moles/Vol] 99 mmol/L Normal 98-107 [facility] Comment on above: Performed By: #### U CLINT, CMP, LIPID, DBIL, PHOS, MG #### [facility] [address] [place] [address] Dr. Brea Causey CO2 [Moles/Vol] 25.0 mmol/L Normal 21.0-32.0 [facility] Comment on above: Performed By: #### U CLINT, CMP, LIPID, DBIL, PHOS, MG #### [facility] [address] [place] [address] Dr. Brea Causey Creatinine [Mass/Vol] 1.05 mg/dL Normal 0.70-1.30 [facility] Comment on above: Performed By: #### U CLINT, CMP, LIPID, DBIL, PHOS, MG #### [facility] [address] [place] [address] Dr. Brea Causey EGFR-AF MARSHALLESE >60 Normal >=60 [facility] Comment on above: Performed By: #### U CLINT, CMP, LIPID, DBIL, PHOS, MG #### [facility] [address] [place] [address] Dr. Brea Causey EGFR-NON AF MARSHALLESE >60 Normal >=60 [facility] Comment on above: Performed By: #### U CLINT, CMP, LIPID, DBIL, PHOS, MG #### [facility] [address] [address] [address] Brea Causey Globulin (S) [Mass/Vol] 3.2 g/dL Normal [facility] Comment on above: Performed By: #### U CLINT, CMP, LIPID, DBIL, PHOS, MG #### [facility] [address] [place] [address] Dr. Brea Causey Glucose [Mass/Vol] 177 mg/dL Critically high 74-106 [facility] Comment on above: Performed By: #### U CLINT, CMP, LIPID, DBIL, PHOS, MG #### [facility] [address] [address] [address] Brea Causey Potassium [Moles/Vol] 4.6 mmol/L Normal 3.5-5.1 [facility] Comment on above: Performed By: #### U CLINT, CMP, LIPID, DBIL, PHOS, MG #### [facility] [address] [place] [address] Dr. Brea Causey Protein [Mass/Vol] 7.1 g/dL Normal 6.4-8.[address] [facility] Comment on above: Performed By: #### U CLINT, CMP, LIPID, DBIL, PHOS, MG #### [facility] [address] [place] [address] Dr. Brea Causey Sodium [Moles/Vol] 134 mmol/L Critically low 136-145 [facility] Comment on above: Performed By: #### U CLITN, CMP, LIPID, DBIL, PHOS, MG #### [facility] [address] [place] [address] Dr. Brea Causey Urea nitrogen [Mass/Vol] 14.0 mg/dL Normal 7.0-18.0 [facility] Comment on above: Performed By: #### U CLINT, CMP, LIPID, DBIL, PHOS, MG #### [facility] [address] [place] [address] Dr. Brea Causey Urea nitrogen/Creatinine [Mass ratio] 13.3 mg/mg Normal [facility] Comment on above: Performed By: #### U CLINT, CMP, LIPID, DBIL, PHOS, MG #### [facility] [address] [place] [address] Dr. Brea Causey URIC ACID SERUMon 01-04-2022 Urate [Mass/Vol] 7.6 mg/dL Critically high 3.5-7.2 [facility] Comment on above: Performed By: #### U CLINT, CMP, LIPID, DBIL, PHOS, MG #### [facility] [address] [place] [address] Dr. Brea Causey BK VIRUS PCR QUANTon 022 BKV DNA QUANT PCR PLASMA Negative Normal Negative [facility] Comment on above: Result Comment: No B K DNA detected. . The linear range of the assay is 22 - 100,000,000 IU/mL. Performed By: #### B KVIRUS #### [facility] [address] [place] [address] Dr. Brea Causey Log10 BKV DNA Plasma Normal [facility] Comment on above: Performed By: #### B KVIRUS #### [facility] [address] [place] [address] Dr. Brea Causey FK506 (TACROLIMUS) WHOLE BLO ODon 12-03-2021 Tacrolimus (FK506), Blood 5.6 ng/mL Normal 2.0-20.0 [facility] Comment on above: Result Comment: Trou gh (immediately following transplant) 15.0 . Trough (steady state, 2 weeks or more after transplant): 3.0 - 8.0 . Performed by LC-MS/MS technology. Performed By: #### U CLINT, CMP, LIPID, DBIL, PHOS, MG #### [facility] [address] [place] [address] Dr. Brea Causey TESTOSTERONE, FREE,DIRECT, T OTALon 12-03-2021 Free Testosterone(Direct) 7.5 pg/mL Normal 6.6-18.1 [facility] Comment on above: Result Comment: Perf ormed at: BN Performed By: #### U CLINT, CMP, LIPID, DBIL, PHOS, MG #### [facility] [address] [place] [address] Dr. Brea Causey Testosterone [Mass/Vol] 467 ng/dL Normal 264-916 [facility] Comment on above: Result Comment: Adul t male reference interval is based on a population of healthy nonobese males (BMI <30) between 19 and 39 years old. daniel Harris.al. JCEM 2017,102;4590-4196. PMID: [id number]. Performed at: CB Performed By: #### U CLINT, CMP, LIPID, DBIL, PHOS, MG #### [facility] [address] [place] [address] Dr. Brea Causey BILIRUBIN CONJUGATED (DIRECT )on 11-30-2021 BILI, CONJUGATED 0.2 mg/dL Normal 0.0-0.2 [facility] Comment on above: Performed By: #### B KVIRUS #### [facility] [address] [place] [address] Dr. Brea Causey CBC AUTO DIFFon 11-30-2021 BASO # 0.0 103/ul Normal 0.0-0.1 [facility] Comment on above: Performed By: #### U CLINT, CMP, LIPID, DBIL, PHOS, MG #### [facility] [address] [place] [address] Dr. Brea Causey Basophils/100 WBC (Bld) 0.6 % Normal 0.2-2.0 [facility] Comment on above: Performed By: #### U CLINT, CMP, LIPID, DBIL, PHOS, MG #### [facility] [address] [place] [address] Dr. Brea Causey EO # 0.2 103/ul Normal 0.0-0.7 [facility] Comment on above: Performed By: #### U CLINT, CMP, LIPID, DBIL, PHOS, MG #### [facility] [address] [place] [address] Dr. Brea Causey Eosinophils/100 WBC (Bld) 2.7 % Normal 0.9-7.0 [facility] Comment on above: Performed By: #### U CLINT, CMP, LIPID, DBIL, PHOS, MG #### [facility] [address] [place] [address] Dr. Brea Causey Erythrocyte distribution width (RBC) [Ratio] 13.0 % Normal 11.0-15.0 [facility] Comment on above: Performed By: #### U CLINT, CMP, LIPID, DBIL, PHOS, MG #### [facility] [address] [place] [address] Dr. Brea Causey Hematocrit (Bld) [Volume fraction] 37.6 % Critically low 42.0-54.0 [facility] Comment on above: Performed By: #### U CLINT, CMP, LIPID, DBIL, PHOS, MG #### [facility] [address] [place] [address] Dr. Brea Causey Hemoglobin (Bld) [Mass/Vol] 12.4 g/dL Critically low 14.0-18.0 [facility] Comment on above: Performed By: #### U CLINT, CMP, LIPID, DBIL, PHOS, MG #### [facility] [address] [place] [address] Dr. Brea Causey IG # 0.06 10e3/ul Critically high 0.00-0.03 [facility] Comment on above: Performed By: #### U CLINT, CMP, LIPID, DBIL, PHOS, MG #### [facility] [address] [place] [address] Dr. Brea Causey IG % 0.9 % Critically high 0.0-0.5 [facility] Comment on above: Performed By: #### U CLINT, CMP, LIPID, DBIL, PHOS, MG #### [facility] [address] [place] [address] Dr. Brea Causey LYMPH # 1.0 103/ul Critically low 1.2-3.8 [facility] Comment on above: Performed By: #### U CLINT, CMP, LIPID, DBIL, PHOS, MG #### [facility] [address] [place] [address] Dr. Brea Causey Lymphocytes/100 WBC (Bld) 14.6 % Critically low 20.5-60.0 [facility] Comment on above: Performed By: #### U CLINT, CMP, LIPID, DBIL, PHOS, MG #### [facility] [address] [place] [address] Dr. Brea Causey MANUAL DIFF REQ NO Normal [facility] Comment on above: Performed By: #### U CLINT, CMP, LIPID, DBIL, PHOS, MG #### [facility] [address] [place] [address] Dr. Brea Causey MCH (RBC) [Entitic mass] 29.4 pg Normal 25.9-34.0 [facility] Comment on above: Performed By: #### U CLINT, CMP, LIPID, DBIL, PHOS, MG #### [facility] [address] [place] [address] Dr. Brea Causey MCHC (RBC) [Mass/Vol] 33.0 g/dL Normal 29.9-35.2 [facility] Comment on above: Performed By: #### U CLINT, CMP, LIPID, DBIL, PHOS, MG #### [facility] [address] [place] [address] Dr. Brea Causey MCV (RBC) [Entitic vol] 89.1 fL Normal 80.0-94.0 [facility] Comment on above: Performed By: #### U CLINT, CMP, LIPID, DBIL, PHOS, MG #### [facility] [address] [place] [address] Dr. Brea Causey MONO # 0.7 103/ul Normal 0.3-0.8 [facility] Comment on above: Performed By: #### U CLINT, CMP, LIPID, DBIL, PHOS, MG #### [facility] [address] [place] [address] Dr. Brea Causey Monocytes/100 WBC (Bld) 10.0 % Normal 1.7-12.0 [facility] Comment on above: Performed By: #### U CLINT, CMP, LIPID, DBIL, PHOS, MG #### [facility] [address] [place] [address] Dr. Brea Causey NEUT # 4.8 103/ul Normal 1.4-6.5 [facility] Comment on above: Performed By: #### U CLINT, CMP, LIPID, DBIL, PHOS, MG #### [facility] [address] [address] [address] Brea Causey Neutrophils/100 WBC (Bld) 71.2 % Normal 43.0-75.0 [facility] Comment on above: Performed By: #### U CLINT, CMP, LIPID, DBIL, PHOS, MG #### [facility] [address] [address] [address] Brea Causey Platelet mean volume (Bld) [Entitic vol] 9.0 fL Critically low 9.5-13.5 [facility] Comment on above: Performed By: #### U CLINT, CMP, LIPID, DBIL, PHOS, MG #### [facility] [address] [place] [address] Dr. Brea Causey PLT 280 103/ul Normal 150-450 [facility] Comment on above: Performed By: #### U CLINT, CMP, LIPID, DBIL, PHOS, MG #### [facility] [address] [place] [address] Dr. Brea Causey RBC 4.22 106/ul Critically low 4.70-6.10 [facility] Comment on above: Performed By: #### U CLINT, CMP, LIPID, DBIL, PHOS, MG #### [facility] [address] [place] [address] Dr. Brea Causey WBC 6.7 103/ul Normal 4.0-11.0 [facility] Comment on above: Performed By: #### U CLINT, CMP, LIPID, DBIL, PHOS, MG #### [facility] [address] [place] [address] Dr. Brea Causey GLYCOHEMOGLOBIN A1Con 2021 ADA RECOMMENDATION SEE BELOW Normal [facility] Comment on above: Result Comment: ADA RECOMMENDED LIMIT 4.0 - 6.0 ADA THERAPEUTIC TARGET < 7.0 ACTION SUGGESTED > 7.0 Performed By: #### B KVIRUS #### [facility] [address] [place] [address] Dr. Brea Causey Glucose [Mass/Vol] 171 mg/dL Normal [facility] Comment on above: Performed By: #### B KVIRUS #### [facility] [address] [address] [address] Brea Causey HbA1c (Bld) [Mass fraction] 7.6 % Critically high 4.5-6.2 [facility] Comment on above: Performed By: #### B KVIRUS #### [facility] [address] [address] [address] Brea Causey LIPID PROFILEon 11-30-2021 CHOL-HDL RATIO NORM SEE BELOW Normal [facility] Comment on above: Result Comment: 3.3 - 4.4 LOW RISK 4.4 - 7.1 AVERAGE RISK 7.1 - 11.0 MODERATE RISK >11.0 HIGH RISK Performed By: #### C BC #### [facility] [address] [place] [address] Dr. Brea Causey Cholesterol [Mass/Vol] 75 mg/dL Normal <=200 [facility] Comment on above: Performed By: #### C BC #### [facility] [address] [place] [address] Dr. Brea Causey Cholesterol in HDL [Mass/Vol] 41 mg/dL Normal 40-60 [facility] Comment on above: Performed By: #### C BC #### [facility] [address] [place] [address] Dr. Brea Causey Cholesterol in LDL [Mass/Vol] 18.6 mg/dL Normal [facility] Comment on above: Performed By: #### C BC #### [facility] [address] [address] [address] Brea Causey Cholesterol.total/Cho lesterol in HDL [Mass ratio] 1.8 {ratio} Normal [facility] Comment on above: Performed By: #### C BC #### [facility] [address] [place] [address] Dr. Brea Causey HDL NORMAL > or = 60 mg/dl - LO W CARDIOVASCULAR RISK <40 mg/dl - HIGH CARDIOVASCULAR RISK Normal [facility] Comment on above: Performed By: #### C BC #### [facility] [address] [address] [address] Brea Causey LDL CALC NORMAL SEE BELOW Normal [facility] Comment on above: Result Comment: <100 mg/dl OPTIMAL 100 - 129 mg/dl NEAR OR ABOVE OPTIMAL 130 - 159 mg/dl BORDERLINE HIGH 160 - 189 mg/dl HIGH >190 mg/dl VERY HIGH Performed By: #### C BC #### [facility] [address] [address] [address] Brea Causey Triglyceride [Mass/Vol] 77 mg/dL Normal <=150 [facility] Comment on above: Performed By: #### C BC #### [facility] [address] [place] [address] Dr. Brea Causey VLDL CALC 15.4 mg/dL Normal [facility] Comment on above: Performed By: #### C BC #### [facility] [address] [place] [address] Dr. Brae Causey MAGNESIUMon 11-30-2021 Magnesium [Mass/Vol] 1.4 mg/dL Critically low 1.8-2.4 [facility] Comment on above: Performed By: #### B KVIRUS #### [facility] [address] [place] [address] Dr. Brea Causey PHOSPHORUSon 11-30-2021 Phosphate [Mass/Vol] 4.1 mg/dL Normal 2.6-4.7 [facility] Comment on above: Performed By: #### C BC #### [facility] [address] [place] [address] Dr. Brea Causey PROF 14(COMP METB)on 022 Albumin [Mass/Vol] 4.2 g/dL Normal 3.4-5.0 [facility] Comment on above: Performed By: #### C BC #### [facility] [address] [place] [address] Dr. Brea Causey Albumin/Globulin [Mass ratio] 1.3 {ratio} Normal [facility] Comment on above: Performed By: #### C BC #### [facility] [address] [place] [address] Dr. Brea Causey ALP [Catalytic activity/Vol] 148 U/L Critically high 46-116 [facility] Comment on above: Performed By: #### C BC #### [facility] [address] [place] [address] Dr. Brea Causey ALT [Catalytic activity/Vol] 36 U/L Normal 16-63 [facility] Comment on above: Performed By: #### C BC #### [facility] [address] [address] [address] Brea Causey Anion gap [Moles/Vol] 14.7 mmol/L Normal [facility] Comment on above: Performed By: #### C BC #### [facility] [address] [place] [address] Dr. Brea Causey AST [Catalytic activity/Vol] 21 U/L Normal 15-37 [facility] Comment on above: Performed By: #### C BC #### [facility] [address] [place] [address] Dr. Brea Causey Bilirubin [Mass/Vol] 0.4 mg/dL Normal 0.2-1.0 [facility] Comment on above: Performed By: #### C BC #### [facility] [address] [place] [address] Dr. Brea Causey Calcium [Mass/Vol] 8.3 mg/dL Critically low 8.5-10.1 [facility] Comment on above: Performed By: #### C BC #### [facility] [address] [place] [address] Dr. Brea Causey Chloride [Moles/Vol] 98 mmol/L Normal 98-107 [facility] Comment on above: Performed By: #### C BC #### [facility] [address] [address] [address] Brea Causey CO2 [Moles/Vol] 27.2 mmol/L Normal 21.0-32.0 [facility] Comment on above: Performed By: #### C BC #### [facility] [address] [place] [address] Dr. Brea Causey Creatinine [Mass/Vol] 1.10 mg/dL Normal 0.70-1.30 [facility] Comment on above: Performed By: #### C BC #### [facility] [address] [address] [address] Brea Causey EGFR-AF MARSHALLESE >60 Normal >=60 [facility] Comment on above: Performed By: #### C BC #### [facility] [address] [address] [address] Brea Causey EGFR-NON AF MARSHALLESE >60 Normal >=60 [facility] Comment on above: Performed By: #### C BC #### [facility] [address] [address] [address] Brea Causey Globulin (S) [Mass/Vol] 3.2 g/dL Normal [facility] Comment on above: Performed By: #### C BC #### [facility] [address] [address] [address] Brea Causey Glucose [Mass/Vol] 173 mg/dL Critically high 74-106 [facility] Comment on above: Performed By: #### C BC #### [facility] [address] [address] [address] Brea Causey Potassium [Moles/Vol] 4.9 mmol/L Normal 3.5-5.1 [facility] Comment on above: Performed By: #### C BC #### [facility] [address] [address] [address] Brea Causey Protein [Mass/Vol] 7.4 g/dL Normal 6.4-8.[address] [facility] Comment on above: Performed By: #### C BC #### [facility] [address] [address] [address] Brea Causey Sodium [Moles/Vol] 135 mmol/L Critically low 136-145 [facility] Comment on above: Performed By: #### C BC #### [facility] [address] [address] [address] Brea Causey Urea nitrogen [Mass/Vol] 14.0 mg/dL Normal 7.0-18.0 [facility] Comment on above: Performed By: #### C BC #### [facility] [address] [place] [address] Dr. Brea Causey Urea nitrogen/Creatinine [Mass ratio] 12.7 mg/mg Normal [facility] Comment on above: Performed By: #### C BC #### [facility] [address] [place] [address] Dr. Brea Causey URIC ACID SERUMon 11-30-2021 Urate [Mass/Vol] 7.8 mg/dL Critically high 3.5-7.2 [facility] Comment on above: Performed By: #### C BC #### [facility] [address] [place] [address] Dr. Brea Causey BNPon 11-14-2021 Natriuretic peptide B (Bld) [Mass/Vol] 350.0 pg/mL Normal <=900.0 [facility] Comment on above: Performed By: #### C BC #### [facility] [address] [place] [address] Dr. Brea Causey CBC AUTO DIFFon 11-14-2021 BASO # 0.0 103/ul Normal 0.0-0.1 [facility] Comment on above: Performed By: #### C BC #### [facility] [address] [place] [address] Dr. Brea Causey Basophils/100 WBC (Bld) 0.1 % Critically low 0.2-2.0 [facility] Comment on above: Performed By: #### C BC #### [facility] [address] [place] [address] Dr. Brea Causey EO # 0.2 103/ul Normal 0.0-0.7 [facility] Comment on above: Performed By: #### C BC #### [facility] [address] [place] [address] Dr. Brea Causey Eosinophils/100 WBC (Bld) 1.4 % Normal 0.9-7.0 [facility] Comment on above: Performed By: #### C BC #### [facility] [address] [place] [address] Dr. Brea Causey Erythrocyte distribution width (RBC) [Ratio] 13.1 % Normal 11.0-15.0 [facility] Comment on above: Performed By: #### C BC #### [facility] [address] [address] [address] Brea Causey Hematocrit (Bld) [Volume fraction] 39.4 % Critically low 42.0-54.0 [facility] Comment on above: Performed By: #### C BC #### [facility] [address] [place] [address] Dr. Brea Causey Hemoglobin (Bld) [Mass/Vol] 13.2 g/dL Critically low 14.0-18.0 [facility] Comment on above: Performed By: #### C BC #### [facility] [address] [place] [address] Dr. Brea Causey IG # 0.11 10e3/ul Critically high 0.00-0.03 [facility] Comment on above: Performed By: #### C BC #### [facility] [address] [place] [address] Dr. Brea Causey IG % 0.6 % Critically high 0.0-0.5 [facility] Comment on above: Performed By: #### C BC #### [facility] [address] [place] [address] Dr. Brea Causey LYMPH # 1.1 103/ul Critically low 1.2-3.8 [facility] Comment on above: Performed By: #### C BC #### [facility] [address] [place] [address] Dr. Brea Causey Lymphocytes/100 WBC (Bld) 6.7 % Critically low 20.5-60.0 [facility] Comment on above: Performed By: #### C BC #### [facility] [address] [place] [address] Dr. Brea Causey MANUAL DIFF REQ NO Normal [facility] Comment on above: Performed By: #### C BC #### [facility] [address] [place] [address] Dr. Brea Causey MCH (RBC) [Entitic mass] 29.5 pg Normal 25.9-34.0 [facility] Comment on above: Performed By: #### C BC #### [facility] [address] [address] [address] Brea Causey MCHC (RBC) [Mass/Vol] 33.5 g/dL Normal 29.9-35.2 [facility] Comment on above: Performed By: #### C BC #### [facility] [address] [address] [address] Brea Causey MCV (RBC) [Entitic vol] 88.1 fL Normal 80.0-94.0 [facility] Comment on above: Performed By: #### C BC #### [facility] [address] [address] [address] Brea Causey MONO # 1.5 103/ul Critically high 0.3-0.8 [facility] Comment on above: Performed By: #### C BC #### [facility] [address] [address] [address] Brea Causey Monocytes/100 WBC (Bld) 8.6 % Normal 1.7-12.0 [facility] Comment on above: Performed By: #### C BC #### [facility] [address] [address] [address] Brea Causey NEUT # 14.0 103/ul Critically high 1.4-6.5 [facility] Comment on above: Performed By: #### C BC #### [facility] [address] [address] [address] Brea Causey Neutrophils/100 WBC (Bld) 82.6 % Critically high 43.0-75.0 [facility] Comment on above: Performed By: #### C BC #### [facility] [address] [address] [address] Brea Causey Platelet mean volume (Bld) [Entitic vol] 9.5 fL Normal 9.5-13.5 [facility] Comment on above: Performed By: #### C BC #### [facility] [address] [address] [address] Brea Causey PLT 303 103/ul Normal 150-450 [facility] Comment on above: Performed By: #### C BC #### [facility] [address] [place], [place] [address] Dr. Brea Causey RBC 4.47 106/ul Critically low 4.70-6.10 [facility] Comment on above: Performed By: #### C BC #### [facility] [address] [place], [place] [address] Dr. Brea Causey WBC 17.0 103/ul Critically high 4.0-11.0 [facility] Comment on above: Performed By: #### C BC #### [facility] [id number] Brea Causey Covid-19 PCR ([facility])on SARS-CoV-2 (COVID-19) RNA ISI+probe Ql (Unsp spec) Not detected Normal NOT DETECTED [facility] Comment on above: Result Comment: When [...] for this test is supported by the Computer Aided [employer] Operator of Health and Human Service's declaration that [...] CLINT, CMP, LIPID, DBIL, PHOS, MG #### [facility] [id number] Brea Causey ER URINE PROFILEon 2 Bilirubin Ql (U) Negative Normal NEGATIVE [facility] Comment on above: Performed By: #### U CLINT, CMP, LIPID, DBIL, PHOS, MG #### [facility] [address] [address] [address] Brea Causey Clarity (U) CLEAR Normal CLEAR [facility] Comment on above: Performed By: #### U CLINT, CMP, LIPID, DBIL, PHOS, MG #### [facility] [address] [address] [address] Brea Causey Color (U) YELLOW Normal YELLOW [facility] Comment on above: Performed By: #### U CLINT, CMP, LIPID, DBIL, PHOS, MG #### [facility] [address] [address] [address] Brea GORDON A micrscopic examination will be performed if indicated. Normal [facility] Comment on above: Performed By: #### U CLINT, CMP, LIPID, DBIL, PHOS, MG #### [facility] [address] [place] [address] Dr. Brea Causey Glucose Ql (U) Negative Normal NEGATIVE [facility] Comment on above: Performed By: #### U CLINT, CMP, LIPID, DBIL, PHOS, MG #### [facility] [address] [place] [address] Dr. Brea Causey Hemoglobin Ql (U) Negative Normal NEGATIVE [facility] Comment on above: Performed By: #### U CLINT, CMP, LIPID, DBIL, PHOS, MG #### [facility] [address] [place] [address] Dr. Brea Causey Ketones Ql (U) Negative Normal NEGATIVE [facility] Comment on above: Performed By: #### U CLINT, CMP, LIPID, DBIL, PHOS, MG #### [facility] [address] [address] [address] Brea Causey LEUKOCYTES Negative Normal NEGATIVE [facility] Comment on above: Performed By: #### U CLINT, CMP, LIPID, DBIL, PHOS, MG #### [facility] [address] [address] [address] Brea Causey Nitrite Ql (U) Negative Normal NEGATIVE [facility] Comment on above: Performed By: #### U CLINT, CMP, LIPID, DBIL, PHOS, MG #### [facility] [address] [address] [address] Brea Causey pH (U) 6.0 [pH] Normal 5-9 [facility] Comment on above: Performed By: #### U CLINT, CMP, LIPID, DBIL, PHOS, MG #### [facility] [address] [place] [address] Dr. Brea Causey SPEC GRAVITY <=1.005 Abnormal 1.005-<=1.025 [facility] Comment on above: Performed By: #### U CLINT, CMP, LIPID, DBIL, PHOS, MG #### [facility] [address] [place] [address] Dr. Brea Causey UA PROTEIN Negative Normal NEGATIVE/ TRACE [facility] Comment on above: Performed By: #### U CLINT, CMP, LIPID, DBIL, PHOS, MG #### [facility] [address] [place] [address] Dr. Brea Causey UR MICRO IND NOT INDICATED Normal [facility] Comment on above: Performed By: #### U CLINT, CMP, LIPID, DBIL, PHOS, MG #### [facility] [address] [place] [address] Dr. Brea Causey Urobilinogen Qn (U) 0.2 {Sabine'U}/dL Normal 0.2 - 1. 0 [facility] Comment on above: Performed By: #### U CLINT, CMP, LIPID, DBIL, PHOS, MG #### [facility] [address] [place] [address] Dr. Brea Causey GI PANEL (PCR)on 11-14-2021 Adenovirus F 40/41 Not detected Normal NOT DETECTED [facility] Comment on above: Performed By: #### U CLINT, CMP, LIPID, DBIL, PHOS, MG #### [facility] [address] [place] [address] Dr. Brea Causey Astrovirus Not detected Normal NOT DETECTED [facility] Comment on above: Performed By: #### U CLINT, CMP, LIPID, DBIL, PHOS, MG #### [facility] [address] [address] [address] Brea Causey C. Diff toxin A/B Not detected Normal NOT DETECTED [facility] Comment on above: Performed By: #### U CLINT, CMP, LIPID, DBIL, PHOS, MG #### [facility] [address] [address] [address] Brea Causey Campylobacter Not detected Normal NOT DETECTED [facility] Comment on above: Performed By: #### U CLINT, CMP, LIPID, DBIL, PHOS, MG #### [facility] [address] [address] [address] Brea Causey Cryptosporidium Not detected Normal NOT DETECTED [facility] Comment on above: Performed By: #### U CLINT, CMP, LIPID, DBIL, PHOS, MG #### [facility] [address] [address] [address] Brea Causey Cyclos. Cayetanensis Not detected Normal NOT DETECTED [facility] Comment on above: Performed By: #### U CLINT, CMP, LIPID, DBIL, PHOS, MG #### [facility] [address] [address] [address] Brea Causey E. Coli O157 Not Applicable Normal Not Applicable [facility] Comment on above: Performed By: #### U CLINT, CMP, LIPID, DBIL, PHOS, MG #### [facility] [address] [address] [address] Brea Causey E. histolytica Not detected Normal NOT DETECTED [facility] Comment on above: Performed By: #### U CLINT, CMP, LIPID, DBIL, PHOS, MG #### [facility] [address] [address] [address] Brea Causey EAEC Not detected Normal NOT DETECTED [facility] Comment on above: Performed By: #### U CLINT, CMP, LIPID, DBIL, PHOS, MG #### [facility] [address] [address] [address] Brea Causey EIEC Not detected Normal NOT DETECTED [facility] Comment on above: Performed By: #### U CLINT, CMP, LIPID, DBIL, PHOS, MG #### [facility] [address] [address] [address] Brea Causey EPEC Not detected Normal NOT DETECTED [facility] Comment on above: Performed By: #### U CLINT, CMP, LIPID, DBIL, PHOS, MG #### [facility] [address] [address] [address] Brea Causey ETEC Not detected Normal NOT DETECTED [facility] Comment on above: Performed By: #### U CLINT, CMP, LIPID, DBIL, PHOS, MG #### [facility] [address] [address] [address] Brea Colon Not detected Normal NOT DETECTED [facility] Comment on above: Performed By: #### U CLINT, CMP, LIPID, DBIL, PHOS, MG #### [facility] [address] [address] [address] Brea LEZAMA CONTROLS PASSED Normal [facility] Comment on above: Performed By: #### U CLINT, CMP, LIPID, DBIL, PHOS, MG #### [facility] [address] [address] [address] Brea [facility] HEADER GI PANEL BACTERIA Normal [facility] Comment on above: Performed By: #### U CLINT, CMP, LIPID, DBIL, PHOS, MG #### [facility] [address] [address] [address] Brea PINTO ECOLI GI PANEL DIARRHEAGENIC E.COLI / SHIGELLA Normal [facility] Comment on above: Performed By: #### U CLINT, CMP, LIPID, DBIL, PHOS, MG #### [facility] [address] [address] [address] Brea PINOT INFO SEE BELOW Normal [facility] Comment on above: Result Comment: EAEC - Enteroaggregative E. Coli EPEC- Enteropathogenic E. Coli ETEC- Enterotoxigenic E. Coli lt/st STEC- Shigella-like toxin-producing E. Coli stx1/stx2 EIEC- Shigella/Enteroinvasive E. Coli Performed By: #### U CLINT, CMP, LIPID, DBIL, PHOS, MG #### [facility] [address] [address] [address] Brea PINTO PARASITES GI PANEL PARASITES Normal [facility] Comment on above: Performed By: #### U CLINT, CMP, LIPID, DBIL, PHOS, MG #### [facility] [address] [address] [address] Brea PINTO VIRUS GI PANEL VIRUSES Normal [facility] Comment on above: Performed By: #### U CLINT, CMP, LIPID, DBIL, PHOS, MG #### [facility] [address] [address] [address] Brea Causey Norovirus GI/GII Not detected Normal NOT DETECTED [facility] Comment on above: Performed By: #### U CLINT, CMP, LIPID, DBIL, PHOS, MG #### [facility] [address] [place] [address] Dr. Brea Causey P. Shigelloides Not detected Normal NOT DETECTED [facility] Comment on above: Performed By: #### U CLINT, CMP, LIPID, DBIL, PHOS, MG #### [facility] [address] [place] [address] Dr. Brea Causey Rotavirus A Not detected Normal NOT DETECTED [facility] Comment on above: Performed By: #### U CLINT, CMP, LIPID, DBIL, PHOS, MG #### [facility] [address] [place] [address] Dr. Brea Causey Salmonella Not detected Normal NOT DETECTED [facility] Comment on above: Performed By: #### U CLINT, CMP, LIPID, DBIL, PHOS, MG #### [facility] [address] [address] [address] Brea Causey Sapovirus Not detected Normal NOT DETECTED [facility] Comment on above: Performed By: #### U CLINT, CMP, LIPID, DBIL, PHOS, MG #### [facility] [address] [address] [address] Brea Causey STEC Not detected Normal NOT DETECTED [facility] Comment on above: Performed By: #### U CLINT, CMP, LIPID, DBIL, PHOS, MG #### [facility] [address] [place] [address] Dr. Brea Causey Vibrio Not detected Normal NOT DETECTED [facility] Comment on above: Performed By: #### U CLINT, CMP, LIPID, DBIL, PHOS, MG #### [facility] [address] [place] [address] Dr. Brea Causey Vibrio Cholera Not detected Normal NOT DETECTED [facility] Comment on above: Performed By: #### U CLINT, CMP, LIPID, DBIL, PHOS, MG #### [facility] [address] [place] [address] Dr. Brea Causey Y. Enterocolitica Not detected Normal NOT DETECTED [facility] Comment on above: Performed By: #### U CLINT, CMP, LIPID, DBIL, PHOS, MG #### [facility] [address] [place] [address] Dr. Brea Causey PROF 14(COMP METB)on 022 Albumin [Mass/Vol] 4.0 g/dL Normal 3.4-5.0 [facility] Comment on above: Performed By: #### C BC #### [facility] [address] [place] [address] Dr. Brea Causey Albumin/Globulin [Mass ratio] 1.3 {ratio} Normal [facility] Comment on above: Performed By: #### C BC #### [facility] [address] [place] [address] Dr. Brea Causey ALP [Catalytic activity/Vol] 142 U/L Critically high 46-116 [facility] Comment on above: Performed By: #### C BC #### [facility] [address] [place] [address] Dr. Brea Causey ALT [Catalytic activity/Vol] 39 U/L Normal 16-63 [facility] Comment on above: Performed By: #### C BC #### [facility] [address] [place] [address] Dr. Brea Causey Anion gap [Moles/Vol] 13.6 mmol/L Normal [facility] Comment on above: Performed By: #### C BC #### [facility] [address] [place] [address] Dr. Brea Causey AST [Catalytic activity/Vol] 23 U/L Normal 15-37 [facility] Comment on above: Performed By: #### C BC #### [facility] [address] [place] [address] Dr. Brea Causey Bilirubin [Mass/Vol] 0.4 mg/dL Normal 0.2-1.0 [facility] Comment on above: Performed By: #### C BC #### [facility] [address] [place] [address] Dr. Brea Causey Calcium [Mass/Vol] 8.4 mg/dL Critically low 8.5-10.1 [facility] Comment on above: Performed By: #### C BC #### [facility] [address] [place] [address] Dr. Brea Causey Chloride [Moles/Vol] 97 mmol/L Critically low 98-107 [facility] Comment on above: Performed By: #### C BC #### [facility] [address] [place] [address] Dr. Brea Causey CO2 [Moles/Vol] 26.1 mmol/L Normal 21.0-32.0 [facility] Comment on above: Performed By: #### C BC #### [facility] [address] [place] [address] Dr. Brea Causey Creatinine [Mass/Vol] 1.21 mg/dL Normal 0.70-1.30 [facility] Comment on above: Performed By: #### C BC #### [facility] [address] [place] [address] Dr. Brea Causey EGFR-AF MARSHALLESE >60 Normal >=60 [facility] Comment on above: Performed By: #### C BC #### [facility] [address] [place] [address] Dr. Brea Causey EGFR-NON AF MARSHALLESE 59 mL/min/1.73m2 Critically low >=60 [facility] Comment on above: Performed By: #### C BC #### [facility] [address] [address] [address] Brea Causey Globulin (S) [Mass/Vol] 3.2 g/dL Normal [facility] Comment on above: Performed By: #### C BC #### [facility] [address] [address] [address] Brea Causey Glucose [Mass/Vol] 227 mg/dL Critically high 74-106 [facility] Comment on above: Performed By: #### C BC #### [facility] [address] [address] [address] Brea Causey Potassium [Moles/Vol] 4.7 mmol/L Normal 3.5-5.1 [facility] Comment on above: Performed By: #### C BC #### [facility] [address] [address] [address] Brea Causey Protein [Mass/Vol] 7.2 g/dL Normal 6.4-8.[address] [facility] Comment on above: Performed By: #### C BC #### [facility] [address] [address] [address] Brea Causey Sodium [Moles/Vol] 132 mmol/L Critically low 136-145 Th [facility] Comment on above: Performed By: #### C BC #### [facility] [address] [address] [address] Brea Causey Urea nitrogen [Mass/Vol] 12.0 mg/dL Normal 7.0-18.0 [facility] Comment on above: Performed By: #### C BC #### [facility] [address] [address] [address] Brea Causey Urea nitrogen/Creatinine [Mass ratio] 9.9 mg/mg Normal [facility] Comment on above: Performed By: #### C BC #### [facility] [address] [address] [address] Brea Causey CBC W/DIFFon 10-31-2021 ABS IMM GRANS 0.1 10*3/uL Normal 0.0-0.2 [facility] Comment on above: Performed By: #### 4 5506, 95865, 57216, 58302, 96237, 70384 #### [facility] [address] [place] [address], [facility] ABS NEUTROPHILS 5.9 10*3/uL Normal 1.6-7.6 [facility] Comment on above: Performed By: #### 4 5506, 25054, 81706, 94720, 95697, 83790 #### [facility] [address] [place] [address], [facility] Basophils (Bld) [#/Vol] 0.0 10*3/uL Normal 0.0-0.2 [facility] Comment on above: Performed By: #### 4 5506, 59860, 07671, 10205, 19750, 07773 #### [facility] [address] [place] [address], [facility] Basophils/100 WBC (Bld) 0.3 % Normal 0.0-1.0 [facility] Comment on above: Performed By: #### 4 5506, 30087, 48896, 42817, 59751, 78518 #### [facility] [address] [facility] [place] [address], [facility] Eosinophils (Bld) [#/Vol] 0.2 10*3/uL Normal 0.0-0.5 [facility] Comment on above: Performed By: #### 4 5506, 35923, 96055, 20631, 61075, 10857 #### [facility] [address] [place] [address], [place] Eosinophils/100 WBC (Bld) 2.3 % Normal 0.0-6.0 [facility] Comment on above: Performed By: #### 4 5506, 42037, 44130, 73157, 37039, 63241 #### [facility] [address] Erythrocyte distribution width (RBC) [Ratio] 13.4 % Normal 11.5-15.0 [facility] Comment on above: Performed By: #### 4 5506, 66028, 25631, 19881, 65664, 35602 #### [facility] [address] [place] [address], [facility] Hematocrit (Bld) [Volume fraction] 36.1 % Low 39.0-50.0 [facility] Comment on above: Performed By: #### 4 5506, 14092, 91743, 04935, 86696, 58602 #### [facility] [address] Hemoglobin (Bld) [Mass/Vol] 11.9 g/dL Low 13.0-17.0 [facility] Comment on above: Performed By: #### 4 5506, 55912, 03362, 12375, 51632, 98687 #### [facility] [address] IMMATURE GRANS 0.7 % Normal 0.0-1.0 [facility] Comment on above: Performed By: #### 4 5506, 70444, 77197, 85474, 04453, 40372 #### [facility] [address] [place] [address], [facility] Lymphocytes (Bld) [#/Vol] 0.9 10*3/uL Low 1.2-4.0 [facility] Comment on above: Performed By: #### 4 5506, 69533, 62947, 68156, 99761, 16202 #### [facility] [address] [place] [address], [facility] Lymphocytes/100 WBC (Bld) 12.1 % Low 20.0-45.0 [facility] Comment on above: Performed By: #### 4 5506, 16064, 52536, 33002, 93420, 68576 #### [facility] [address] [place] [address], [facility] MCH (RBC) [Entitic mass] 29.3 pg Normal 27.0-33.0 [facility] Comment on above: Performed By: #### 4 5506, 36805, 72250, 00495, 21965, 98885 #### [facility] [address] [place] [address], [facility] MCHC (RBC) [Mass/Vol] 33.0 g/dL Normal 32.0-35.0 [facility] Comment on above: Performed By: #### 4 5506, 90390, 70048, 27470, 49212, 70922 #### [facility] [address] [place] [address], [facility] MCV (RBC) [Entitic vol] 88.9 fL Normal 82.0-98.0 [facility] Comment on above: Performed By: #### 4 5506, 95564, 77619, 65129, 73721, 08901 #### [facility] [address] [facility] [place] [address], [facility] Monocytes (Bld) [#/Vol] 0.6 10*3/uL Normal 0.1-1.0 [facility] Comment on above: Performed By: #### 4 5506, 72186, 49877, 15499, 47248, 21663 #### [facility] [address] MONOS 8.3 % Normal 5.0-12.0 [facility] Comment on above: Performed By: #### 4 5506, 47985, 42552, 58002, 55468, 18080 #### [facility] [address] [place] [address], [facility] Neutrophils/100 WBC (Bld) 76.3 % High 40.0-72.0 [facility] Comment on above: Performed By: #### 4 5506, 69845, 43178, 60648, 91172, 75817 #### [facility] [address] [facility] [address] Nucleated RBC/100 WBC (Bld) [Ratio] 0 % Normal 0-0 [facility] Comment on above: Performed By: #### 4 5506, 61938, 38311, 95017, 88756, 86519 #### [facility] [address] [facility] [place] [address], [facility] PLAT CNT 260 10*3/uL Normal 150-400 [facility] Comment on above: Performed By: #### 4 5506, 79450, 66202, 47409, 70654, 39973 #### [facility] [address] [facility]. [address] RBC (Bld) [#/Vol] 4.06 10*6/uL Low 4.20-5.70 [facility] Comment on above: Performed By: #### 4 5506, 77273, 21428, 48848, 19820, 18715 #### [facility] [address] [facility]. [address] WBC (Bld) [#/Vol] 7.68 10*3/uL Normal 4.00-10.60 [facility] Comment on above: Performed By: #### 4 5506, 61758, 73425, 30202, 33167, 88398 #### [facility] [address] [facility]. [address] COMP METABOLIC PANELon 10-31 Albumin [Mass/Vol] 4.4 g/dL Normal 3.5-5.7 [facility] Comment on above: Performed By: #### 4 5506, 03306, 29897, 61852, 75796, 82156 #### [facility] [address] ALKALINE PHOSPH 132 IU/L High 34-104 [facility] Comment on above: Performed By: #### 4 5506, 27947, 03334, 27146, 02524, 17381 #### [facility] [address] [place] [address], [place] ALT [Catalytic activity/Vol] 26 U/L Normal 7-52 [facility] Comment on above: Performed By: #### 4 5506, 13637, 86577, 93146, 38243, 59992 #### [facility] [address] [place] [address], [place] AST [Catalytic activity/Vol] 17 U/L Normal 13-39 [facility] Comment on above: Performed By: #### 4 5506, 67551, 54372, 23443, 83265, 19415 #### [facility] [address] [place] [address], [place] Bilirubin [Mass/Vol] 0.4 mg/dL Normal 0.3-1.0 [facility] Comment on above: Performed By: #### 4 5506, 68412, 58315, 45827, 71763, 10119 #### [facility] [address] [place] [address], [place] Calcium [Mass/Vol] 8.6 mg/dL Normal 8.6-10.3 [facility] Comment on above: Performed By: #### 4 5506, 10063, 85247, 92723, 03150, 07347 #### [facility] [address] [place] [address], [place] Chloride [Moles/Vol] 97 mmol/L Low 98-107 [facility] Comment on above: Performed By: #### 4 5506, 07334, 16674, 56301, 86307, 63832 #### [facility] [address] [place] [address], [place] CO2 [Moles/Vol] 26 mmol/L Normal 21-31 [facility] Comment on above: Performed By: #### 4 5506, 50940, 16699, 91232, 58651, 65192 #### [facility] [address] [place] [address], [place] Creatinine [Mass/Vol] 1.04 mg/dL Normal 0.70-1.30 [facility] Comment on above: Performed By: #### 4 5506, 90586, 84812, 37892, 17849, 72415 #### [facility] [address] [place] [address], [place] GFR/1.73 sq M.predicted among blacks MDRD (S/P/Bld) [Vol rate/Area] mL/min/{1.73_m2} Normal >60 [facility] Comment on above: Performed By: #### 4 5506, 34267, 95771, 18227, 12544, 35887 #### [facility] [address] [place] [address], [place] GFR/1.73 sq M.predicted among non-blacks MDRD (S/P/Bld) [Vol rate/Area] mL/min/{1.73_m2} Normal >60 [facility] Comment on above: Performed By: #### 4 5506, 60779, 24039, 69533, 11822, 57128 #### [facility] [address] [place] [address], [place] Glucose [Mass/Vol] 158 mg/dL High 70-100 [facility] Comment on above: Performed By: #### 4 5506, 33419, 50514, 90989, 39936, 38902 #### [facility] [address] [place] [address], [place] Potassium [Moles/Vol] 4.4 mmol/L Normal 3.5-5.1 [facility] Comment on above: Performed By: #### 4 5506, 67876, 01009, 00006, 95501, 34277 #### [facility] [address] [place] [address], [place] Protein [Mass/Vol] 6.6 g/dL Normal 6.0-8.3 [facility] Comment on above: Performed By: #### 4 5506, 44625, 00103, 51900, 30765, 75352 #### [facility] [address] [place] [address], [facility] Sodium [Moles/Vol] 131 mmol/L Low 136-145 [facility] Comment on above: Performed By: #### 4 5506, 24222, 31755, 95245, 23767, 68928 #### [facility] [address] [place] [address], [facility] Urea nitrogen [Mass/Vol] 15 mg/dL Normal 7-25 [facility] Comment on above: Performed By: #### 4 5506, 86089, 69467, 03045, 87454, 33476 #### [facility] [address] [place] [address], [facility] DIRECT BILIon 10-31-2021 Bilirubin.direct [Mass/Vol] 0.1 mg/dL Normal 0.0-0.2 [facility] Comment on above: Performed By: #### 4 5506, 70511, 26377, 08645, 18770, 72328 #### [facility] [address] [place] [address], [place] LIPID PROFILEon 10-31-2021 Cholesterol [Mass/Vol] 70 mg/dL Low 120-200 [facility] Comment on above: Result Comment: CHOL ESTEROL REFERENCE RANGE: 20 YEARS AND OLDER CARDIOVASCULAR RISK Less than 200 mg/dl Low Risk 200 to 239 mg/dl Borderline Risk 240 mg/dl and greater High Risk Performed By: #### 4 5506, 97383, 87583, 40865, 90746, 60586 #### [facility] [address] [place] [address], [place] Cholesterol in HDL [Mass/Vol] 35 mg/dL Normal 23-92 [facility] Comment on above: Result Comment: Slig ht variation in normal range could be due to gender and/or age. HDL CHOLESTEROL REFERENCE RANGE: 20 years and older Cardiovascular Risk > or =60 mg/dL Desirable 40 TO 59 mg/dL Low Risk <40 mg/dL High Risk Performed By: #### 4 5506, 14639, 31530, 14774, 50029, 79195 #### [facility] [address] [place] [address], [place] Cholesterol in LDL [Mass/Vol] 20 mg/dL Normal 0-130 [facility] Comment on above: Result Comment: LDL IS A CALCULATION LDL IS ONLY VALID IF THE TRIG IS LESS THAN 400. Performed By: #### 4 5506, 77376, 73883, 86607, 70199, 85049 #### [facility] [address] [place] [address], [facility] Cholesterol.total/Cho lesterol in HDL [Mass ratio] 2.0 {ratio} Normal .0-4.5 [facility] Comment on above: Performed By: #### 4 5506, 44020, 79872, 85428, 46583, 12425 #### [facility] [address] [place] [address], [facility] NON-HDL CHOLESTEROL 35 mg/dL Normal [facility] Comment on above: Performed By: #### 4 5506, 15016, 09785, 87897, 03129, 26898 #### [facility] [address] [place] [address], [place] Triglyceride [Mass/Vol] 73 mg/dL Normal 40-149 [facility] Comment on above: Result Comment: TRIG LYCERIDE REFERENCE RANGE: 20 YEARS AND OLDER CARDIOVASCULAR RISK LESS THAN 150 mg/dl LOW RISK 150 TO 199 mg/dl BORDERLINE RISK 200 mg/dl AND GREATER HIGH RISK Performed By: #### 4 5506, 17916, 85017, 55689, 28133, 58726 #### [facility] [address] [place] [address], [place] VLDL CHOL 15 mg/dL Normal 0-40 [facility] Comment on above: Performed By: #### 4 5506, 22771, 55660, 40769, 58157, 69092 #### [facility] [address] [place] [address], [facility] MAGNESIUM BLOODon 10-31-2021 Magnesium [Mass/Vol] 1.1 mg/dL Critically low 1.9-2.7 [facility] Comment on above: Performed By: #### 4 5506, 98814, 81232, 21132, 51497, 90870 #### [facility] [address] [place] [address], [facility] PHOSPHORUS BLOODon Phosphate [Mass/Vol] 3.0 mg/dL Normal 2.5-5.0 [facility] Comment on above: Performed By: #### 4 5506, 37828, 26390, 27669, 11058, 93080 #### [facility] [address] [place] [address], [facility] PROSPERAon 10-31-2021 PROSPERA KIT Results to be mailed directly to physician's office by reference lab. Normal [facility] Comment on above: Result Comment: Test performed by [id number] [place] [address] Specimen collected for transplant patient and sent to [facility] per Dr instructions. No charge. No result expected. For billing and tracking purposes only. Performed By: #### 4 5506, 50355, 75081, 86681, 39508, 15328 #### [facility] [address] [place] [address], [facility] RESULT Results to be mailed directly to physician's office by reference lab. Normal [facility] Comment on above: Performed By: #### 4 5506, 08548, 31266, 81121, 22227, 45294 #### [facility] [address] [place] [address], [facility] TACROLIMUSon 10-31-2021 Tacrolimus (Bld) [Mass/Vol] 7.6 ng/mL Normal 5.0-20.0 [facility] Comment on above: Result Comment: The [employer] Tacrolimus assay is a delayed one-step immunoassay for the quantitative determination of tacrolimus in human whole blood using the chemiluminescent microparticle immunoassay (CMIA) technology with flexible assay protocols, referred to as Chemiflex. Performed By: #### 4 5506, 35545, 16783, 12875, 67669, 75886 #### [facility] [address] URIC ACID BLOODon 10-31-2021 Urate [Mass/Vol] 7.8 mg/dL High 4.4-7.6 [facility] Comment on above: Performed By: #### 4 5506, 76304, 77756, 64219, 24722, 01017 #### [facility] [address] NM PARATHYROID WITH SPECT AN D CTon 07-24-2021 NM PARATHYROID WITH SPECT AND CT [facility] Department of Radiology [address] [place] [address] Patient Name: ROGER SUAREZ : 1950 Sex: M Age: Race: White Pt. Location: Patient Status: D Ordered Date: 06/26/2021 8:40:00 AM Completed Date: 07/24/2021 01:21 PM Requesting Provider: NAGA BOSCH Attending Provider: NAGA BOSCH Report Copy To: JERICHO MCCARTHY Signs & Symptoms: E21.3 Hyperparathyroidism, unspecified I10 History: Sammi NPC Req. per [facility] A/B for CPT 88466 *SLA Comments: , , , Ordering Provider - DINKAR TUNICA-BILOXI MD , Exam: NM PARATHYROID WITH SPECT AND CT NM PARATHYROID WITH SPECT AND CT 07/24/2021 1:21 PM CLINICAL INDICATIONS: E21.3 Hyperparathyroidism, unspecified I10 TECHNOLOGIST COMMENTS: Hyperparathyroidism. 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 Patient injected with 24.9 mCi of Tc99m Sestamibi for imaging. QUESTION FOR THE RADIOLOGIST: , , , Ordering Cirilo BOSCH MD , PROTOCOL:Following injection of 99mTc [...] SPECT. Electronically signed: Nan Earl. Transcribed by: [email or web address], User Resident: Electronically Signed by: NAN EARL @ 07/27/2021 12:13 PM Normal [facility] Comment on above: Order Comment: , , = ========= , Ordering Cirilo BOSCH MD , CBC W/DIFFon 06-22-2021 ABS IMM GRANS 0.1 10*3/uL Normal 0.0-0.2 [facility] Comment on above: Performed By: #### 4 5506, 80233, 49773, 25755, 57985, 73403 #### [facility] [address] [facility] [place] [address], [facility] ABS NEUTROPHILS 4.7 10*3/uL Normal 1.6-7.6 [facility] Comment on above: Performed By: #### 4 5506, 75799, 69993, 04447, 74758, 36127 #### [facility] [address] [facility] [place] [address], [facility] Basophils (Bld) [#/Vol] 0.0 10*3/uL Normal 0.0-0.2 [facility] Comment on above: Performed By: #### 4 5506, 59952, 02436, 07085, 54814, 53296 #### [facility] [address] [place] [address], [facility] Basophils/100 WBC (Bld) 0.6 % Normal 0.0-1.0 [facility] Comment on above: Performed By: #### 4 5506, 55820, 66697, 14783, 77420, 28614 #### [facility] [address] [place] [address], [facility] Eosinophils (Bld) [#/Vol] 0.2 10*3/uL Normal 0.0-0.5 [facility] Comment on above: Performed By: #### 4 5506, 71240, 18408, 56933, 53038, 28292 #### [facility] [address] [place] [address], [place] Eosinophils/100 WBC (Bld) 2.5 % Normal 0.0-6.0 [facility] Comment on above: Performed By: #### 4 5506, 69542, 30814, 99076, 27964, 77963 #### [facility] [address] Erythrocyte distribution width (RBC) [Ratio] 13.6 % Normal 11.5-15.0 [facility] Comment on above: Performed By: #### 4 5506, 69674, 34528, 48658, 42483, 59499 #### [facility] [address] [facility]. [address] Hematocrit (Bld) [Volume fraction] 36.3 % Low 39.0-50.0 [facility] Comment on above: Performed By: #### 4 5506, 20661, 58605, 69561, 81733, 09321 #### [facility] [address] Hemoglobin (Bld) [Mass/Vol] 11.7 g/dL Low 13.0-17.0 [facility] Comment on above: Performed By: #### 4 5506, 93797, 61091, 69664, 04227, 95080 #### [facility] [address] IMMATURE GRANS 0.8 % Normal 0.0-1.0 [facility] Comment on above: Performed By: #### 4 5506, 14109, 04901, 13475, 99229, 01998 #### [facility] [address] Lymphocytes (Bld) [#/Vol] 0.9 10*3/uL Low 1.2-4.0 [facility] Comment on above: Performed By: #### 4 5506, 43030, 46159, 04326, 30804, 94737 #### [facility] [address] [facility] [place] [address], [facility] Lymphocytes/100 WBC (Bld) 13.6 % Low 20.0-45.0 [facility] Comment on above: Performed By: #### 4 5506, 54269, 35669, 31335, 99654, 96849 #### [facility] [address] [place] [address], [facility] MCH (RBC) [Entitic mass] 28.6 pg Normal 27.0-33.0 [facility] Comment on above: Performed By: #### 4 5506, 45495, 72438, 95637, 51802, 44922 #### [facility] [address] [place] [address], [facility] MCHC (RBC) [Mass/Vol] 32.2 g/dL Normal 32.0-35.0 [facility] Comment on above: Performed By: #### 4 5506, 98616, 04606, 52392, 81735, 96115 #### [facility] [address] [place] [address], [facility] MCV (RBC) [Entitic vol] 88.8 fL Normal 82.0-98.0 [facility] Comment on above: Performed By: #### 4 5506, 88560, 28594, 19891, 11674, 03669 #### [facility] [address] [facility] [place] [address], [facility] Monocytes (Bld) [#/Vol] 0.6 10*3/uL Normal 0.1-1.0 [facility] Comment on above: Performed By: #### 4 5506, 27118, 72555, 35361, 15275, 06119 #### [facility] [address] [facility] [address] MONOS 9.6 % Normal 5.0-12.0 [facility] Comment on above: Performed By: #### 4 5506, 37675, 84206, 40208, 14532, 85263 #### [facility] [address] [place] [address], [facility] Neutrophils/100 WBC (Bld) 72.9 % High 40.0-72.0 [facility] Comment on above: Performed By: #### 4 5506, 41906, 94948, 15191, 95152, 59379 #### [facility] [address] [facility] [address] Nucleated RBC/100 WBC (Bld) [Ratio] 0 % Normal 0-0 [facility] Comment on above: Performed By: #### 4 5506, 67303, 00656, 14787, 12319, 77837 #### [facility] [address] [place] [address], [facility] PLAT CNT 263 10*3/uL Normal 150-400 [facility] Comment on above: Performed By: #### 4 5506, 96454, 67944, 53697, 30075, 58481 #### [facility] [address] [facility]. [address] RBC (Bld) [#/Vol] 4.09 10*6/uL Low 4.20-5.70 [facility] Comment on above: Performed By: #### 4 5506, 08221, 83356, 27861, 67625, 70857 #### [facility] [address] [facility]. [address] WBC (Bld) [#/Vol] 6.45 10*3/uL Normal 4.00-10.60 [facility] Comment on above: Performed By: #### 4 5506, 03089, 59853, 93678, 83955, 35145 #### [facility] [address] COMP METABOLIC PANELon 06-22 Albumin [Mass/Vol] 4.3 g/dL Normal 3.5-5.7 [facility] Comment on above: Performed By: #### 4 5506, 32709, 90112, 68584, 90007, 80516 #### [facility] [address] [place] [address], [facility] ALKALINE PHOSPH 143 IU/L High 34-104 [facility] Comment on above: Performed By: #### 4 5506, 30532, 29456, 29293, 79534, 86087 #### [facility] [address] [place] [address], [place] ALT [Catalytic activity/Vol] 18 U/L Normal 7-52 [facility] Comment on above: Performed By: #### 4 5506, 61014, 71063, 20323, 87053, 44586 #### [facility] [address] [place] [address], [place] AST [Catalytic activity/Vol] 15 U/L Normal 13-39 [facility] Comment on above: Performed By: #### 4 5506, 18054, 52050, 95423, 07654, 64933 #### [facility] [address] [place] [address], [place] Bilirubin [Mass/Vol] 0.3 mg/dL Normal 0.3-1.0 [facility] Comment on above: Performed By: #### 4 5506, 79043, 26226, 81986, 36347, 15335 #### [facility] [address] [place] [address], [place] Calcium [Mass/Vol] 10.6 mg/dL High 8.6-10.3 [facility] Comment on above: Performed By: #### 4 5506, 91809, 24661, 80236, 60798, 32987 #### [facility] [address] [place] [address], [place] Chloride [Moles/Vol] 102 mmol/L Normal 98-107 [facility] Comment on above: Performed By: #### 4 5506, 58251, 34599, 53371, 99632, 40656 #### [facility] [address] [place] [address], [place] CO2 [Moles/Vol] 24 mmol/L Normal 21-31 [facility] Comment on above: Performed By: #### 4 5506, 26596, 79576, 57241, 67169, 77777 #### [facility] [address] [place] [address], [place] Creatinine [Mass/Vol] 1.04 mg/dL Normal 0.70-1.30 [facility] Comment on above: Performed By: #### 4 5506, 93618, 64183, 03717, 91657, 47191 #### [facility] [address] [place] [address], [place] GFR/1.73 sq M.predicted among blacks MDRD (S/P/Bld) [Vol rate/Area] mL/min/{1.73_m2} Normal >60 [facility] Comment on above: Performed By: #### 4 5506, 36983, 68780, 84459, 31252, 68809 #### [facility] [address] [place] [address], [place] GFR/1.73 sq M.predicted among non-blacks MDRD (S/P/Bld) [Vol rate/Area] mL/min/{1.73_m2} Normal >60 [facility] Comment on above: Performed By: #### 4 5506, 73706, 12306, 41516, 75046, 75782 #### [facility] [address] [place] [address], [place] Glucose [Mass/Vol] 167 mg/dL High 70-100 [facility] Comment on above: Performed By: #### 4 5506, 45772, 64362, 14579, 94916, 81824 #### [facility] [address] [place] [address], [place] Potassium [Moles/Vol] 5.3 mmol/L High 3.5-5.1 [facility] Comment on above: Performed By: #### 4 5506, 86894, 24916, 56770, 86038, 69327 #### [facility] [address] [place] [address], [facility] Protein [Mass/Vol] 6.5 g/dL Normal 6.0-8.3 [facility] Comment on above: Performed By: #### 4 5506, 14853, 66516, 81991, 39111, 05494 #### [facility] [address] [place] [address], [facility] Sodium [Moles/Vol] 134 mmol/L Low 136-145 [facility] Comment on above: Performed By: #### 4 5506, 08893, 53274, 63944, 11694, 36211 #### [facility] [address] [place] [address], [facility] Urea nitrogen [Mass/Vol] 11 mg/dL Normal 7-25 [facility] Comment on above: Performed By: #### 4 5506, 56445, 32761, 92546, 89782, 65180 #### [facility] [address] [place] [address], [facility] DIRECT BILIon 06-22-2021 Bilirubin.direct [Mass/Vol] 0.1 mg/dL Normal 0.0-0.2 [facility] Comment on above: Performed By: #### 4 5506, 28394, 49472, 85919, 88186, 89806 #### [facility] [address] [place] [address], [facility] LIPID PROFILEon 06-22-2021 Cholesterol [Mass/Vol] 77 mg/dL Low 120-200 [facility] Comment on above: Result Comment: CHOL ESTEROL REFERENCE RANGE: 20 YEARS AND OLDER CARDIOVASCULAR RISK Less than 200 mg/dl Low Risk 200 to 239 mg/dl Borderline Risk 240 mg/dl and greater High Risk Performed By: #### 4 5506, 69904, 28828, 41970, 18775, 91264 #### [facility] [address] [place] [address], [facility] Cholesterol in HDL [Mass/Vol] 40 mg/dL Normal 23-92 [facility] Comment on above: Result Comment: Slig ht variation in normal range could be due to gender and/or age. HDL CHOLESTEROL REFERENCE RANGE: 20 years and older Cardiovascular Risk > or =60 mg/dL Desirable 40 TO 59 mg/dL Low Risk <40 mg/dL High Risk Performed By: #### 4 5506, 53281, 82421, 80826, 31029, 54149 #### [facility] [address] [place] [address], [place] Cholesterol in LDL [Mass/Vol] 24 mg/dL Normal 0-130 [facility] Comment on above: Result Comment: LDL IS A CALCULATION LDL IS ONLY VALID IF THE TRIG IS LESS THAN 400. Performed By: #### 4 5506, 29945, 57599, 53438, 22852, 42835 #### [facility] [address] [place] [address], [facility] Cholesterol.total/Cho lesterol in HDL [Mass ratio] 1.9 {ratio} Normal .0-4.5 [facility] Comment on above: Performed By: #### 4 5506, 39671, 88793, 90558, 42745, 33295 #### [facility] [address] [place] [address], [facility] NON-HDL CHOLESTEROL 37 mg/dL Normal [facility] Comment on above: Performed By: #### 4 5506, 11644, 58961, 51237, 42859, 37203 #### [facility] [address] [place] [address], [place] Triglyceride [Mass/Vol] 63 mg/dL Normal 40-149 [facility] Comment on above: Result Comment: TRIG LYCERIDE REFERENCE RANGE: 20 YEARS AND OLDER CARDIOVASCULAR RISK LESS THAN 150 mg/dl LOW RISK 150 TO 199 mg/dl BORDERLINE RISK 200 mg/dl AND GREATER HIGH RISK Performed By: #### 4 5506, 00759, 29585, 74017, 07507, 45792 #### [facility] [address] [place] [address], [place] VLDL CHOL 13 mg/dL Normal 0-40 [facility] Comment on above: Performed By: #### 4 5506, 67204, 09657, 07593, 00412, 61767 #### [facility] [address] [place] [address], [facility] MAGNESIUM BLOODon 06-22-2021 Magnesium [Mass/Vol] 1.4 mg/dL Low 1.9-2.7 [facility] Comment on above: Performed By: #### 4 5506, 62345, 16079, 73849, 81766, 07317 #### [facility] [address] [place] [address], [facility] PHOSPHORUS BLOODon Phosphate [Mass/Vol] 2.5 mg/dL Normal 2.5-5.0 [facility] Comment on above: Performed By: #### 4 5506, 54332, 99167, 91219, 40596, 16200 #### [facility] [address] [place] [address], [facility] PTH INTACTon 06-22-2021 PTH INTACT 155 pg/mL High 12-88 [facility] Comment on above: Performed By: #### 4 5506, 11655, 39777, 92683, 61076, 77098 #### [facility] [address] [place] [address], [facility] TACROLIMUSon 06-22-2021 Tacrolimus (Bld) [Mass/Vol] 21.0 ng/mL High 5.0-20.0 [facility] Comment on above: Result Comment: The [employer] Tacrolimus assay is a delayed one-step immunoassay for the quantitative determination of tacrolimus in human whole blood using the chemiluminescent microparticle immunoassay (CMIA) technology with flexible assay protocols, referred to as Chemiflex. Performed By: #### 4 5506, 43149, 52639, 38153, 50524, 82891 #### [facility] [address] [place] [address], [facility] URIC ACID BLOODon 06-22-2021 Urate [Mass/Vol] 7.9 mg/dL High 4.4-7.6 [facility] Comment on above: Performed By: #### 4 5506, 38100, 76097, 10503, 35924, 02593 #### [facility] [address] CBC W/DIFFon 04-19-2021 ABS IMM GRANS 0.1 10*3/uL Normal 0.0-0.2 [facility] Comment on above: Performed By: #### 4 5506, 30748, 03831, 70051, 74004, 30261 #### [facility] [address] ABS NEUTROPHILS 5.2 10*3/uL Normal 1.6-7.6 [facility] Comment on above: Performed By: #### 4 5506, 14730, 98786, 32203, 92208, 06119 #### [facility] [address] [place] [address], [facility] Basophils (Bld) [#/Vol] 0.0 10*3/uL Normal 0.0-0.2 [facility] Comment on above: Performed By: #### 4 5506, 40401, 79193, 69435, 29879, 77953 #### [facility] [address] [place] [address], [facility] Basophils/100 WBC (Bld) 0.4 % Normal 0.0-1.0 [facility] Comment on above: Performed By: #### 4 5506, 31107, 10006, 36120, 41749, 65751 #### [facility] [address] [place] [address], [facility] Eosinophils (Bld) [#/Vol] 0.2 10*3/uL Normal 0.0-0.5 [facility] Comment on above: Performed By: #### 4 5506, 15123, 31883, 44075, 95662, 17056 #### [facility] [address] [facility] [address] Eosinophils/100 WBC (Bld) 2.9 % Normal 0.0-6.0 [facility] Comment on above: Performed By: #### 4 5506, 63994, 88011, 04863, 52118, 33871 #### [facility] [address] Erythrocyte distribution width (RBC) [Ratio] 13.3 % Normal 11.5-15.0 [facility] Comment on above: Performed By: #### 4 5506, 73773, 23405, 93606, 34318, 97498 #### [facility] [address] Hematocrit (Bld) [Volume fraction] 37.1 % Low 39.0-50.0 [facility] Comment on above: Performed By: #### 4 5506, 55837, 57098, 64370, 17843, 68161 #### [facility] [address] [facility]. [address] Hemoglobin (Bld) [Mass/Vol] 11.7 g/dL Low 13.0-17.0 [facility] Comment on above: Performed By: #### 4 5506, 03350, 13404, 21864, 47714, 44974 #### [facility] [address] [facility]. [address] IMMATURE GRANS 0.9 % Normal 0.0-1.0 [facility] Comment on above: Performed By: #### 4 5506, 56473, 83684, 51492, 23037, 36072 #### [facility] [address] [facility] [place] [address], [facility] Lymphocytes (Bld) [#/Vol] 0.9 10*3/uL Low 1.2-4.0 [facility] Comment on above: Performed By: #### 4 5506, 76253, 10596, 74708, 49964, 61117 #### [facility] [address] [place] [address], [facility] Lymphocytes/100 WBC (Bld) 12.5 % Low 20.0-45.0 [facility] Comment on above: Performed By: #### 4 5506, 84555, 45785, 00426, 29258, 98828 #### [facility] [address] [place] [address], [facility] MCH (RBC) [Entitic mass] 29.0 pg Normal 27.0-33.0 [facility] Comment on above: Performed By: #### 4 5506, 73395, 30486, 96973, 91980, 08452 #### [facility] [address] [place] [address], [facility] MCHC (RBC) [Mass/Vol] 31.5 g/dL Low 32.0-35.0 [facility] Comment on above: Performed By: #### 4 5506, 18075, 11634, 32337, 05930, 55741 #### [facility] [address] [place] [address], [facility] MCV (RBC) [Entitic vol] 92.1 fL Normal 82.0-98.0 [facility] Comment on above: Performed By: #### 4 5506, 84590, 48231, 72327, 37461, 40175 #### [facility] [address] [place] [address], [facility] Monocytes (Bld) [#/Vol] 0.6 10*3/uL Normal 0.1-1.0 [facility] Comment on above: Performed By: #### 4 5506, 91273, 20722, 71563, 41172, 40517 #### [facility] [address] [place] [address], [facility] MONOS 8.6 % Normal 5.0-12.0 [facility] Comment on above: Performed By: #### 4 5506, 92851, 37661, 21051, 32658, 73795 #### [facility] [address] [place] [address], [facility] Neutrophils/100 WBC (Bld) 74.7 % High 40.0-72.0 [facility] Comment on above: Performed By: #### 4 5506, 41148, 61799, 68800, 94149, 74270 #### [facility] [address] [place] [address], [facility] Nucleated RBC/100 WBC (Bld) [Ratio] 0 % Normal 0-0 [facility] Comment on above: Performed By: #### 4 5506, 54251, 99265, 09123, 85098, 01379 #### [facility] [address] [place] [address], [facility] PLAT CNT 290 10*3/uL Normal 150-400 [facility] Comment on above: Performed By: #### 4 5506, 07878, 21187, 38750, 57340, 77812 #### [facility] [address] [place] [address], [facility] RBC (Bld) [#/Vol] 4.03 10*6/uL Low 4.20-5.70 [facility] Comment on above: Performed By: #### 4 5506, 07978, 23004, 57011, 68990, 51381 #### [facility] [address] [place] [address], [place] WBC (Bld) [#/Vol] 6.96 10*3/uL Normal 4.00-10.60 [facility] Comment on above: Performed By: #### 4 5506, 91061, 49049, 10505, 24479, 83144 #### [facility] [address] [place] [address], [place] COMP METABOLIC PANELon 04-19 Albumin [Mass/Vol] 4.3 g/dL Normal 3.5-5.7 [facility] Comment on above: Performed By: #### 4 5506, 08398, 00850, 26078, 34810, 96045 #### [facility] [address] [place] [address], [place] ALKALINE PHOSPH 137 IU/L High 34-104 [facility] Comment on above: Performed By: #### 4 5506, 15841, 54644, 34336, 00163, 72459 #### [facility] [address] [place] [address], [place] ALT [Catalytic activity/Vol] 17 U/L Normal 7-52 [facility] Comment on above: Performed By: #### 4 5506, 97687, 44638, 11556, 10568, 04963 #### [facility] [address] [place] [address], [place] AST [Catalytic activity/Vol] 16 U/L Normal 13-39 [facility] Comment on above: Performed By: #### 4 5506, 79283, 75635, 09941, 92976, 56099 #### [facility] [address] [place] [address], [place] Bilirubin [Mass/Vol] 0.4 mg/dL Normal 0.3-1.0 [facility] Comment on above: Performed By: #### 4 5506, 39174, 14286, 30756, 19265, 50539 #### [facility] [address] [place] [address], [place] Calcium [Mass/Vol] 10.5 mg/dL High 8.6-10.3 [facility] Comment on above: Performed By: #### 4 5506, 62599, 83196, 04415, 26626, 24184 #### [facility] [address] [place] [address], [place] Chloride [Moles/Vol] 99 mmol/L Normal 98-107 [facility] Comment on above: Performed By: #### 4 5506, 55081, 93631, 31564, 87936, 28259 #### [facility] [address] [place] [address], [facility] CO2 [Moles/Vol] 27 mmol/L Normal 21-31 [facility] Comment on above: Performed By: #### 4 5506, 23350, 71629, 71173, 60870, 01299 #### [facility] [address] [place] [address], [facility] Creatinine [Mass/Vol] 1.04 mg/dL Normal 0.70-1.30 [facility] Comment on above: Performed By: #### 4 5506, 90733, 37900, 88238, 52143, 07328 #### [facility] [address] [place] [address], [facility] GFR/1.73 sq M.predicted among blacks MDRD (S/P/Bld) [Vol rate/Area] mL/min/{1.73_m2} Normal >60 [facility] Comment on above: Performed By: #### 4 5506, 81452, 05837, 26789, 44467, 03567 #### [facility] [address] [place] [address], [place] GFR/1.73 sq M.predicted among non-blacks MDRD (S/P/Bld) [Vol rate/Area] mL/min/{1.73_m2} Normal >60 [facility] Comment on above: Performed By: #### 4 5506, 76445, 69967, 25747, 29285, 13660 #### [facility] [address] [place] [address], [place] Glucose [Mass/Vol] 139 mg/dL High 70-100 [facility] Comment on above: Performed By: #### 4 5506, 97109, 18170, 50011, 17893, 72325 #### [facility] [address] [place] [address], [facility] Potassium [Moles/Vol] 5.1 mmol/L Normal 3.5-5.1 [facility] Comment on above: Performed By: #### 4 5506, 60653, 00624, 57881, 23647, 54809 #### [facility] [address] [place] [address], [facility] Protein [Mass/Vol] 6.5 g/dL Normal 6.0-8.3 [facility] Comment on above: Performed By: #### 4 5506, 53944, 61678, 81877, 04923, 14006 #### [facility] [address] [place] [address], [facility] Sodium [Moles/Vol] 133 mmol/L Low 136-145 [facility] Comment on above: Performed By: #### 4 5506, 27824, 91459, 84161, 32840, 09643 #### [facility] [address] [place] [address], [facility] Urea nitrogen [Mass/Vol] 11 mg/dL Normal 7-25 [facility] Comment on above: Performed By: #### 4 5506, 78278, 97418, 97503, 82874, 30630 #### [facility] [address] [place] [address], [facility] DIRECT BILIon 04-19-2021 Bilirubin.direct [Mass/Vol] 0.1 mg/dL Normal 0.0-0.2 [facility] Comment on above: Performed By: #### 4 5506, 40634, 05340, 39762, 25598, 55417 #### [facility] [address] [place] [address], [facility] LIPID PROFILEon 04-19-2021 Cholesterol [Mass/Vol] 82 mg/dL Low 120-200 [facility] Comment on above: Result Comment: CHOL ESTEROL REFERENCE RANGE: 20 YEARS AND OLDER CARDIOVASCULAR RISK Less than 200 mg/dl Low Risk 200 to 239 mg/dl Borderline Risk 240 mg/dl and greater High Risk Performed By: #### 4 5506, 27680, 79166, 28941, 32540, 09264 #### [facility] [address] [place] [address], [place] Cholesterol in HDL [Mass/Vol] 38 mg/dL Normal 23-92 [facility] Comment on above: Result Comment: Slig ht variation in normal range could be due to gender and/or age. HDL CHOLESTEROL REFERENCE RANGE: 20 years and older Cardiovascular Risk > or =60 mg/dL Desirable 40 TO 59 mg/dL Low Risk <40 mg/dL High Risk Performed By: #### 4 5506, 40748, 13073, 28286, 12225, 27636 #### [facility] [address] [place] [address], [place] Cholesterol in LDL [Mass/Vol] 25 mg/dL Normal 0-130 [facility] Comment on above: Result Comment: LDL IS A CALCULATION LDL IS ONLY VALID IF THE TRIG IS LESS THAN 400. Performed By: #### 4 5506, 64641, 72490, 22809, 62240, 48076 #### [facility] [address] [place] [address], [place] Cholesterol.total/Cho lesterol in HDL [Mass ratio] 2.2 {ratio} Normal .0-4.5 [facility] Comment on above: Performed By: #### 4 5506, 05962, 96982, 49675, 47397, 37884 #### [facility] [address] [place] [address], [place] NON-HDL CHOLESTEROL 44 mg/dL Normal [facility] Comment on above: Performed By: #### 4 5506, 15783, 88582, 15058, 95884, 81550 #### [facility] [address] [place] [address], [place] Triglyceride [Mass/Vol] 93 mg/dL Normal 40-149 [facility] Comment on above: Result Comment: TRIG LYCERIDE REFERENCE RANGE: 20 YEARS AND OLDER CARDIOVASCULAR RISK LESS THAN 150 mg/dl LOW RISK 150 TO 199 mg/dl BORDERLINE RISK 200 mg/dl AND GREATER HIGH RISK Performed By: #### 4 5506, 37119, 08376, 28630, 99655, 44511 #### [facility] [address] [place] [address], [facility] VLDL CHOL 19 mg/dL Normal 0-40 [facility] Comment on above: Performed By: #### 4 5506, 81795, 87325, 08899, 78171, 54342 #### [facility] [address] [place] [address], [facility] MAGNESIUM BLOODon 04-19-2021 Magnesium [Mass/Vol] 1.8 mg/dL Low 1.9-2.7 [facility] Comment on above: Performed By: #### 4 5506, 85656, 13608, 82705, 65511, 31490 #### [facility] [address] [place] [address], [facility] PHOSPHORUS BLOODon Phosphate [Mass/Vol] 3.0 mg/dL Normal 2.5-5.0 [facility] Comment on above: Performed By: #### 4 5506, 92051, 65706, 09841, 24161, 88838 #### [facility] [address] PROSPERAon 04-19-2021 PROSPERA KIT Results to be mailed directly to physician's office by reference lab. Normal [facility] Comment on above: Result Comment: Test performed by [id number] [place] [address] No result expected. For billing and tracking purposes only. Specimen collected for transplant patient and sent to requesting hospital per Dr instructions. No charge. Performed By: #### 4 5506, 23819, 75294, 80652, 72388, 02026 #### [facility] [address] RESULT Results to be mailed directly to physician's office by reference lab. Normal [facility] Comment on above: Performed By: #### 4 5506, 15454, 20280, 56964, 08794, 69510 #### [facility] [address] TACROLIMUSon 04-19-2021 Tacrolimus (Bld) [Mass/Vol] 7.7 ng/mL Normal 5.0-20.0 [facility] Comment on above: Result Comment: The [employer] Tacrolimus assay is a delayed one-step immunoassay for the quantitative determination of tacrolimus in human whole blood using the chemiluminescent microparticle immunoassay (CMIA) technology with flexible assay protocols, referred to as Chemiflex. Performed By: #### 4 5506, 70696, 34850, 01436, 61494, 85570 #### [facility] [address] URIC ACID BLOODon 04-19-2021 Urate [Mass/Vol] 7.9 mg/dL High 4.4-7.6 [facility] Comment on above: Performed By: #### 4 5506, 82655, 98090, 82010, 76446, 31451 #### [address] CBC W/DIFFon 04-11-2021 ABS IMM GRANS 0.0 10*3/uL Normal 0.0-0.2 [facility] Comment on above: Performed By: #### 4 5506, 20663, 50477, 50625, 59721, 16022 #### [facility] [address] ABS NEUTROPHILS 4.5 10*3/uL Normal 1.6-7.6 [facility] Comment on above: Performed By: #### 4 5506, 23453, 32781, 82534, 27177, 16243 #### [facility] [address] [place] [address], [facility] Basophils (Bld) [#/Vol] 0.0 10*3/uL Normal 0.0-0.2 [facility] Comment on above: Performed By: #### 4 5506, 85382, 97656, 01517, 58422, 00217 #### [facility] [address] [place] [address], [facility] Basophils/100 WBC (Bld) 0.5 % Normal 0.0-1.0 [facility] Comment on above: Performed By: #### 4 5506, 89851, 50941, 70730, 36986, 03243 #### [facility] [address] [place] [address], [facility] Eosinophils (Bld) [#/Vol] 0.2 10*3/uL Normal 0.0-0.5 [facility] Comment on above: Performed By: #### 4 5506, 15347, 46306, 57400, 52707, 57185 #### [facility] [address] [place] [address], [facility] Eosinophils/100 WBC (Bld) 3.1 % Normal 0.0-6.0 [facility] Comment on above: Performed By: #### 4 5506, 80167, 73307, 77618, 08254, 07546 #### [facility] [address] [place] [address], [facility] Erythrocyte distribution width (RBC) [Ratio] 13.4 % Normal 11.5-15.0 [facility] Comment on above: Performed By: #### 4 5506, 41300, 25556, 86833, 47144, 37359 #### [facility] [address] [place] [address], [facility] Hematocrit (Bld) [Volume fraction] 35.5 % Low 39.0-50.0 [facility] Comment on above: Performed By: #### 4 5506, 36524, 56473, 99611, 16013, 04909 #### [facility] [address] [facility] [place] [address], [facility] Hemoglobin (Bld) [Mass/Vol] 11.7 g/dL Low 13.0-17.0 [facility] Comment on above: Performed By: #### 4 5506, 92997, 53810, 94468, 64475, 49282 #### [facility] [address] [facility] [place]. [address] IMMATURE GRANS 0.6 % Normal 0.0-1.0 [facility] Comment on above: Performed By: #### 4 5506, 88198, 58314, 85653, 86183, 08515 #### [facility] [address]. [address] Lymphocytes (Bld) [#/Vol] 0.8 10*3/uL Low 1.2-4.0 [facility] Comment on above: Performed By: #### 4 5506, 86049, 82747, 62770, 33005, 12405 #### [facility] [address] [facility]. [address] Lymphocytes/100 WBC (Bld) 12.9 % Low 20.0-45.0 [facility] Comment on above: Performed By: #### 4 5506, 67886, 37706, 11141, 88702, 55162 #### [facility] [address] [facility]. [address] MCH (RBC) [Entitic mass] 29.2 pg Normal 27.0-33.0 [facility] Comment on above: Performed By: #### 4 5506, 19021, 50685, 06547, 25044, 40454 #### [facility] [address] [place] [address], [facility] MCHC (RBC) [Mass/Vol] 33.0 g/dL Normal 32.0-35.0 [facility] Comment on above: Performed By: #### 4 5506, 89766, 13809, 61143, 81876, 03072 #### [facility] [address] [facility] [facility] [place] [address], [facility] MCV (RBC) [Entitic vol] 88.5 fL Normal 82.0-98.0 [facility] Comment on above: Performed By: #### 4 5506, 61501, 41274, 69506, 78816, 46444 #### [facility] [address] Monocytes (Bld) [#/Vol] 0.6 10*3/uL Normal 0.1-1.0 [facility] Comment on above: Performed By: #### 4 5506, 81584, 22011, 84226, 97066, 19684 #### [facility] [address] [facility]. [address] MONOS 10.3 % Normal 5.0-12.0 [facility] Comment on above: Performed By: #### 4 5506, 04297, 51386, 10410, 26218, 44523 #### [facility] [address] [facility]. [address] Neutrophils/100 WBC (Bld) 72.6 % High 40.0-72.0 [facility] Comment on above: Performed By: #### 4 5506, 83194, 40938, 96589, 62217, 37551 #### [facility] [address] [facility]. [address] Nucleated RBC/100 WBC (Bld) [Ratio] 0 % Normal 0-0 [facility] Comment on above: Performed By: #### 4 5506, 61436, 38493, 80795, 56430, 60907 #### [facility] [address] [place] [address], [facility] PLAT CNT 272 10*3/uL Normal 150-400 [facility] Comment on above: Performed By: #### 4 5506, 88987, 90043, 90289, 43778, 26071 #### [facility] [address] [place] [address], [facility] RBC (Bld) [#/Vol] 4.01 10*6/uL Low 4.20-5.70 [facility] Comment on above: Performed By: #### 4 5506, 39401, 89112, 22151, 92552, 16577 #### [facility] [address] [place] [address], [facility] WBC (Bld) [#/Vol] 6.22 10*3/uL Normal 4.00-10.60 [facility] Comment on above: Performed By: #### 4 5506, 06307, 44870, 70711, 35947, 88109 #### [facility] [address] [place] [address], [facility] COMP METABOLIC PANELon 04-11 Albumin [Mass/Vol] 4.3 g/dL Normal 3.5-5.7 [facility] Comment on above: Performed By: #### 4 5506, 49347, 77618, 31915, 62505, 96277 #### [facility] [address] [place] [address], [facility] ALKALINE PHOSPH 115 IU/L High 34-104 [facility] Comment on above: Performed By: #### 4 5506, 60624, 73538, 19573, 78463, 21610 #### [facility] [address] [place] [address], [place] ALT [Catalytic activity/Vol] 16 U/L Normal 7-52 [facility] Comment on above: Performed By: #### 4 5506, 17936, 63464, 88048, 67185, 16813 #### [facility] [address] [place] [address], [facility] AST [Catalytic activity/Vol] 15 U/L Normal 13-39 [facility] Comment on above: Performed By: #### 4 5506, 26891, 48376, 96812, 70470, 04466 #### [facility] [address] [place] [address], [place] Bilirubin [Mass/Vol] 0.6 mg/dL Normal 0.3-1.0 [facility] Comment on above: Performed By: #### 4 5506, 58552, 14782, 99975, 74159, 73429 #### [facility] [address] [place] [address], [place] Calcium [Mass/Vol] 10.3 mg/dL Normal 8.6-10.3 [facility] Comment on above: Performed By: #### 4 5506, 43727, 79023, 91885, 00742, 85875 #### [facility] [address] [place] [address], [place] Chloride [Moles/Vol] 97 mmol/L Low 98-107 [facility] Comment on above: Performed By: #### 4 5506, 67005, 87193, 34884, 87963, 13557 #### [facility] [address] [place] [address], [place] CO2 [Moles/Vol] 26 mmol/L Normal 21-31 [facility] Comment on above: Performed By: #### 4 5506, 61828, 06126, 83481, 33701, 09052 #### [facility] [address] [place] [address], [place] Creatinine [Mass/Vol] 0.93 mg/dL Normal 0.70-1.30 [facility] Comment on above: Performed By: #### 4 5506, 50246, 64894, 63316, 91708, 66196 #### [facility] [address] [place] [address], [place] GFR/1.73 sq M.predicted among blacks MDRD (S/P/Bld) [Vol rate/Area] mL/min/{1.73_m2} Normal >60 [facility] Comment on above: Performed By: #### 4 5506, 83772, 25607, 49527, 00729, 13063 #### [facility] [address] [place] [address], [place] GFR/1.73 sq M.predicted among non-blacks MDRD (S/P/Bld) [Vol rate/Area] mL/min/{1.73_m2} Normal >60 [facility] Comment on above: Performed By: #### 4 5506, 44474, 54296, 15318, 71734, 61793 #### [facility] [address] [place] [address], [place] Glucose [Mass/Vol] 136 mg/dL High 70-100 [facility] Comment on above: Performed By: #### 4 5506, 37943, 31441, 43080, 24843, 12077 #### [facility] [address] [place] [address], [place] Potassium [Moles/Vol] 5.2 mmol/L High 3.5-5.1 [facility] Comment on above: Performed By: #### 4 5506, 01344, 89971, 37124, 46850, 87371 #### [facility] [address] [place] [address], [place] Protein [Mass/Vol] 6.7 g/dL Normal 6.0-8.3 [facility] Comment on above: Performed By: #### 4 5506, 61460, 09235, 62600, 45602, 34556 #### [facility] [address] [place] [address], [place] Sodium [Moles/Vol] 129 mmol/L Low 136-145 [facility] Comment on above: Performed By: #### 4 5506, 07737, 60330, 53119, 89311, 93582 #### [facility] [address] [place] [address], [facility] Urea nitrogen [Mass/Vol] 10 mg/dL Normal 7-25 [facility] Comment on above: Performed By: #### 4 5506, 89573, 90243, 89000, 15888, 18241 #### [facility] [address] [place] [address], [facility] DIRECT BILIon 04-11-2021 Bilirubin.direct [Mass/Vol] 0.2 mg/dL Normal 0.0-0.2 [facility] Comment on above: Performed By: #### 4 5506, 43361, 34233, 50607, 50124, 06614 #### [facility] [address] [place] [address], [facility] LIPID PROFILEon 04-11-2021 Cholesterol [Mass/Vol] 84 mg/dL Low 120-200 [facility] Comment on above: Result Comment: CHOL ESTEROL REFERENCE RANGE: 20 YEARS AND OLDER CARDIOVASCULAR RISK Less than 200 mg/dl Low Risk 200 to 239 mg/dl Borderline Risk 240 mg/dl and greater High Risk Performed By: #### 4 5506, 01402, 04215, 94492, 30746, 45931 #### [facility] [address] [place] [address], [facility] Cholesterol in HDL [Mass/Vol] 41 mg/dL Normal 23-92 [facility] Comment on above: Result Comment: Slig ht variation in normal range could be due to gender and/or age. HDL CHOLESTEROL REFERENCE RANGE: 20 years and older Cardiovascular Risk > or =60 mg/dL Desirable 40 TO 59 mg/dL Low Risk <40 mg/dL High Risk Performed By: #### 4 5506, 13374, 25770, 13315, 94681, 15900 #### [facility] [address] [place] [address], [place] Cholesterol in LDL [Mass/Vol] 34 mg/dL Normal 0-130 [facility] Comment on above: Result Comment: LDL IS A CALCULATION LDL IS ONLY VALID IF THE TRIG IS LESS THAN 400. Performed By: #### 4 5506, 50321, 22370, 81045, 88415, 53370 #### [facility] [address] Cholesterol.total/Cho lesterol in HDL [Mass ratio] 2.0 {ratio} Normal .0-4.5 [facility] Comment on above: Performed By: #### 4 5506, 02162, 54282, 81682, 52021, 69385 #### [facility] [address] NON-HDL CHOLESTEROL 43 mg/dL Normal [facility] Comment on above: Performed By: #### 4 5506, 42353, 85500, 56591, 66467, 32322 #### [facility] [address] Triglyceride [Mass/Vol] 47 mg/dL Normal 40-149 [facility] Comment on above: Result Comment: TRIG LYCERIDE REFERENCE RANGE: 20 YEARS AND OLDER CARDIOVASCULAR RISK LESS THAN 150 mg/dl LOW RISK 150 TO 199 mg/dl BORDERLINE RISK 200 mg/dl AND GREATER HIGH RISK Performed By: #### 4 5506, 84062, 78665, 84840, 79189, 80061 #### [facility] [address] VLDL CHOL 9 mg/dL Normal 0-40 [facility] Comment on above: Performed By: #### 4 5506, 66264, 08529, 15089, 43869, 23292 #### [facility] [address] [facility] [address] MAGNESIUM BLOODon 04-11-2021 Magnesium [Mass/Vol] 1.3 mg/dL Low 1.9-2.7 [facility] Comment on above: Performed By: #### 4 5506, 81811, 32897, 84531, 29370, 12644 #### [facility] [address] [facility] [place] [address], [facility] PHOSPHORUS BLOODon Phosphate [Mass/Vol] 2.6 mg/dL Normal 2.5-5.0 [facility] Comment on above: Performed By: #### 4 5506, 99190, 18147, 90176, 13110, 82580 #### [facility] [address] [place] [address], [facility] TACROLIMUSon 04-11-2021 Tacrolimus (Bld) [Mass/Vol] 8.3 ng/mL Normal 5.0-20.0 [facility] Comment on above: Result Comment: The [employer] Tacrolimus assay is a delayed one-step immunoassay for the quantitative determination of tacrolimus in human whole blood using the chemiluminescent microparticle immunoassay (CMIA) technology with flexible assay protocols, referred to as Chemiflex. Performed By: #### 4 5506, 36283, 62476, 10037, 01851, 18766 #### [facility] [address] [place] [address], [facility] URIC ACID BLOODon 04-11-2021 Urate [Mass/Vol] 8.4 mg/dL High 4.4-7.6 [facility] Comment on above: Performed By: #### 4 5506, 02990, 03266, 09085, 83410, 07582 #### [facility] [address] BK VIRUS QUANTITATION FOR PL ASMAon 02-16-2021 BKV Plasma Quantitation by PCR Not detected Normal [facility] Comment on above: Result Comment: Meth od: BK virus was measured by quantitative polymerase chain reaction using a fluorescent hydrolysis probe targeting the polyomavirus BK [employer]-1 gene. The lower limit of quantitation of the assay is 500 copies of BK genome per milliliter of plasma or urine, and any detectable BK DNA below that level is reported as: Detected, <500 copies/ml. Serial BK virus measurement can be used to monitor disease activity. (Reference: Katina ramirezl. J CLIN MICRO 2004; 42:9996-8035). This test was developed and its performance characteristics determined by the [facility]. It has not been approved by the [place] Food and Drug Administration. However, such approval is not required for clinical implementation, and test results have been shown to be clinically useful. This laboratory is CAP accredited and CLIA certified to perform high complexity testing. Performed By: #### 4 5506, 29161, 68810, 63368, 05632, 01733 #### [facility] [address] BKV Plasma Quantitation Log by PCR Not detected Normal [facility] Comment on above: Performed By: #### 4 5506, 21727, 61496, 16833, 07390, 44335 #### [facility] [address] CBC W/DIFFon 02-16-2021 ABS IMM GRANS 0.1 10*3/uL Normal 0.0-0.2 [facility] Comment on above: Performed By: #### 4 5506, 67963, 23814, 34883, 88202, 78240 #### [facility] [address] ABS NEUTROPHILS 5.8 10*3/uL Normal 1.6-7.6 [facility] Comment on above: Performed By: #### 4 5506, 96135, 81091, 28508, 41819, 23840 #### [facility] [address] Basophils (Bld) [#/Vol] 0.0 10*3/uL Normal 0.0-0.2 [facility] Comment on above: Performed By: #### 4 5506, 15610, 19834, 28961, 52971, 59249 #### [facility] [address] Basophils/100 WBC (Bld) 0.4 % Normal 0.0-1.0 [facility] Comment on above: Performed By: #### 4 5506, 20239, 25855, 24647, 54356, 03992 #### [facility] [address] Eosinophils (Bld) [#/Vol] 0.3 10*3/uL Normal 0.0-0.5 [facility] Comment on above: Performed By: #### 4 5506, 20723, 03127, 24493, 71559, 62151 #### [facility] [address] Eosinophils/100 WBC (Bld) 3.5 % Normal 0.0-6.0 [facility] Comment on above: Performed By: #### 4 5506, 87545, 99137, 03941, 40046, 81918 #### [facility] [address] Erythrocyte distribution width (RBC) [Ratio] 13.6 % Normal 11.5-15.0 [facility] Comment on above: Performed By: #### 4 5506, 69408, 34178, 17454, 41622, 10963 #### [facility] [address] Hematocrit (Bld) [Volume fraction] 34.1 % Low 39.0-50.0 [facility] Comment on above: Performed By: #### 4 5506, 77672, 89698, 88476, 55724, 78063 #### [facility] [address] Hemoglobin (Bld) [Mass/Vol] 11.6 g/dL Low 13.0-17.0 [facility] Comment on above: Performed By: #### 4 5506, 11368, 57026, 97264, 49513, 51369 #### [facility] [address] IMMATURE GRANS 0.8 % Normal 0.0-1.0 [facility] Comment on above: Performed By: #### 4 5506, 45041, 49265, 98554, 53713, 63463 #### [facility] [address] Lymphocytes (Bld) [#/Vol] 0.7 10*3/uL Low 1.2-4.0 [facility] Comment on above: Performed By: #### 4 5506, 86529, 78851, 01584, 04562, 04136 #### [facility] [address] Lymphocytes/100 WBC (Bld) 9.2 % Low 20.0-45.0 [facility] Comment on above: Performed By: #### 4 5506, 23359, 92884, 89771, 40785, 57003 #### [facility] [address] [place] [address], [facility] MCH (RBC) [Entitic mass] 29.5 pg Normal 27.0-33.0 [facility] Comment on above: Performed By: #### 4 5506, 81574, 68672, 12461, 10311, 55590 #### [facility] [address] [place] [address], [facility] MCHC (RBC) [Mass/Vol] 34.0 g/dL Normal 32.0-35.0 [facility] Comment on above: Performed By: #### 4 5506, 22342, 71819, 41598, 20374, 55243 #### [facility] [address] [place] [address], [facility] MCV (RBC) [Entitic vol] 86.8 fL Normal 82.0-98.0 [facility] Comment on above: Performed By: #### 4 5506, 07332, 79084, 76376, 87680, 30008 #### [facility] [address] [facility] [place] [address], [facility] Monocytes (Bld) [#/Vol] 0.8 10*3/uL Normal 0.1-1.0 [facility] Comment on above: Performed By: #### 4 5506, 55689, 51968, 15977, 52028, 42674 #### [facility] [address] [place] [address], [facility] MONOS 10.3 % Normal 5.0-12.0 [facility] Comment on above: Performed By: #### 4 5506, 22146, 52381, 00902, 14326, 66086 #### [facility] [address] [place] [id number], [facility] Neutrophils/100 WBC (Bld) 75.8 % High 40.0-72.0 [facility] Comment on above: Performed By: #### 4 5506, 28611, 67424, 89261, 77463, 63842 #### [facility] [address] [place] [id number], [facility] Nucleated RBC/100 WBC (Bld) [Ratio] 0 % Normal 0-0 [facility] Comment on above: Performed By: #### 4 5506, 14848, 58469, 67540, 52949, 57924 #### [facility] [address] [place] [id number], [facility] PLAT CNT 256 10*3/uL Normal 150-400 [facility] Comment on above: Performed By: #### 4 5506, 39673, 05849, 82540, 39844, 18961 #### [facility] [address] [place] [address], [facility] RBC (Bld) [#/Vol] 3.93 10*6/uL Low 4.20-5.70 [facility] Comment on above: Performed By: #### 4 5506, 78206, 36716, 06747, 69999, 36309 #### [facility] [address] WBC (Bld) [#/Vol] 7.65 10*3/uL Normal 4.00-10.60 [facility] Comment on above: Performed By: #### 4 5506, 60207, 70163, 03990, 38592, 43585 #### [facility] [address] COMP METABOLIC PANELon 02-16 Albumin [Mass/Vol] 4.6 g/dL Normal 3.5-5.7 [facility] Comment on above: Performed By: #### 0 0121, 78959, 55556, 57210, 43812, 56428, 79064, 69368 #### [facility] [address] [facility]. [address] ALKALINE PHOSPH 136 IU/L High 34-104 [facility] Comment on above: Performed By: #### 0 0121, 36603, 77102, 91806, 43266, 16723, 61300, 26447 #### [facility] [address] ALT [Catalytic activity/Vol] 22 U/L Normal 7-52 [facility] Comment on above: Performed By: #### 0 0121, 00884, 58501, 05602, 07312, 48509, 09362, 64648 #### [facility] [address] [facility] [place] [address], [facility] AST [Catalytic activity/Vol] 18 U/L Normal 13-39 [facility] Comment on above: Performed By: #### 0 0121, 74495, 35459, 04985, 36731, 97184, 47388, 68974 #### [facility] [address] [place] [address], [facility] Bilirubin [Mass/Vol] 0.5 mg/dL Normal 0.3-1.0 [facility] Comment on above: Performed By: #### 0 0121, 86605, 62629, 85438, 94067, 73037, 88406, 53108 #### [facility] [address] [place] [address], [facility] Calcium [Mass/Vol] 10.5 mg/dL High 8.6-10.3 [facility] Comment on above: Performed By: #### 0 0121, 64244, 91963, 87806, 40653, 04435, 77705, 32017 #### [facility] [address] [place] [address], [facility] Chloride [Moles/Vol] 94 mmol/L Low 98-107 [facility] Comment on above: Performed By: #### 0 0121, 97112, 02223, 11455, 32266, 84461, 25161, 96850 #### [facility] [address] [place] [address], [facility] CO2 [Moles/Vol] 28 mmol/L Normal 21-31 [facility] Comment on above: Performed By: #### 0 0121, 24089, 38126, 55906, 82926, 01247, 77359, 61523 #### [facility] [address] [place] [address], [facility] Creatinine [Mass/Vol] 0.93 mg/dL Normal 0.70-1.30 [facility] Comment on above: Performed By: #### 0 0121, 73921, 46103, 32975, 91811, 52210, 88454, 95317 #### [facility] [address] [place] [address], [place] GFR/1.73 sq M.predicted among blacks MDRD (S/P/Bld) [Vol rate/Area] mL/min/{1.73_m2} Normal >60 [facility] Comment on above: Performed By: #### 0 0121, 97164, 28456, 84753, 31251, 54723, 24182, 09576 #### [facility] [address] [place] [address], [place] GFR/1.73 sq M.predicted among non-blacks MDRD (S/P/Bld) [Vol rate/Area] mL/min/{1.73_m2} Normal >60 [facility] Comment on above: Performed By: #### 0 0121, 04803, 51308, 82461, 57188, 30901, 89511, 89074 #### [facility] [address] [place] [address], [place] Glucose [Mass/Vol] 147 mg/dL High 70-100 [facility] Comment on above: Performed By: #### 0 0121, 53997, 87106, 86638, 58789, 81945, 92596, 74238 #### [facility] [address] [place] [address], [place] Potassium [Moles/Vol] 4.6 mmol/L Normal 3.5-5.1 [facility] Comment on above: Performed By: #### 0 0121, 80370, 76923, 69512, 32980, 17199, 68355, 87900 #### [facility] [address] [place] [address], [place] Protein [Mass/Vol] 7.2 g/dL Normal 6.0-8.3 [facility] Comment on above: Performed By: #### 0 0121, 82662, 97104, 71736, 46923, 67232, 65191, 61662 #### [facility] [address] [place] [address], [place] Sodium [Moles/Vol] 129 mmol/L Low 136-145 [facility] Comment on above: Performed By: #### 0 0121, 17993, 80455, 42621, 82996, 31291, 52675, 31073 #### [facility] [address] [place] [address], [place] Urea nitrogen [Mass/Vol] 15 mg/dL Normal 7-25 [facility] Comment on above: Performed By: #### 0 0121, 98603, 52005, 22871, 85705, 81625, 94431, 43164 #### [facility] [address] [place] [address], [facility] DIRECT BILIon 02-16-2021 Bilirubin.direct [Mass/Vol] 0.2 mg/dL Normal 0.0-0.2 [facility] Comment on above: Performed By: #### 4 5506, 73534, 05182, 81587, 28473, 93853 #### [facility] [address] [place] [address], [facility] HEMOGLOBIN A1Con 02-16-2021 Glucose [Moles/Vol] 154 mmol/L Normal [facility] Comment on above: Performed By: #### 4 5506, 69243, 83296, 96930, 61526, 61199 #### [facility] [address] HbA1c (Bld) [Mass fraction] 7.0 % High 4.0-6.0 [facility] Comment on above: Performed By: #### 4 5506, 19852, 80698, 69483, 48010, 29553 #### [facility] [address] LIPID PROFILEon 02-16-2021 Cholesterol [Mass/Vol] 78 mg/dL Low 120-200 [facility] Comment on above: Result Comment: CHOL ESTEROL REFERENCE RANGE: 20 YEARS AND OLDER CARDIOVASCULAR RISK Less than 200 mg/dl Low Risk 200 to 239 mg/dl Borderline Risk 240 mg/dl and greater High Risk Performed By: #### 0 0121, 72534, 34887, 12396, 12228, 86467, 88858, 31603 #### [facility] [address] [place] [address], [facility] Cholesterol in HDL [Mass/Vol] 41 mg/dL Normal 23-92 [facility] Comment on above: Result Comment: Slig ht variation in normal range could be due to gender and/or age. HDL CHOLESTEROL REFERENCE RANGE: 20 years and older Cardiovascular Risk > or =60 mg/dL Desirable 40 TO 59 mg/dL Low Risk <40 mg/dL High Risk Performed By: #### 0 0121, 18161, 39591, 00536, 30859, 26859, 73228, 43426 #### [facility] [address] [place] [address], [place] Cholesterol in LDL [Mass/Vol] 28 mg/dL Normal 0-130 [facility] Comment on above: Result Comment: LDL IS A CALCULATION LDL IS ONLY VALID IF THE TRIG IS LESS THAN 400. Performed By: #### 0 0121, 00014, 18450, 95151, 25179, 82378, 44199, 69532 #### [facility] [address] [place] [address], [facility] Cholesterol.total/Cho lesterol in HDL [Mass ratio] 1.9 {ratio} Normal .0-4.5 [facility] Comment on above: Performed By: #### 0 0121, 15985, 21186, 46828, 39225, 76033, 35713, 60471 #### [facility] [address] [place] [address], [facility] NON-HDL CHOLESTEROL 37 mg/dL Normal [facility] Comment on above: Performed By: #### 0 0121, 01442, 81928, 86271, 31444, 95041, 04717, 77606 #### [facility] [address] [place] [address], [place] Triglyceride [Mass/Vol] 44 mg/dL Normal 40-149 [facility] Comment on above: Result Comment: TRIG LYCERIDE REFERENCE RANGE: 20 YEARS AND OLDER CARDIOVASCULAR RISK LESS THAN 150 mg/dl LOW RISK 150 TO 199 mg/dl BORDERLINE RISK 200 mg/dl AND GREATER HIGH RISK Performed By: #### 0 0121, 62779, 23415, 14508, 18895, 82966, 90686, 69265 #### [facility] [address] VLDL CHOL 9 mg/dL Normal 0-40 [facility] Comment on above: Performed By: #### 0 0121, 31130, 15773, 74358, 08649, 95294, 19614, 09547 #### [facility] [address] [place] [address], [facility] HOSPITAL MAGNESIUM BLOODon 02-16-2021 Magnesium [Mass/Vol] 1.5 mg/dL Low 1.9-2.7 [facility] Comment on above: Performed By: #### 4 5506, 77291, 70940, 04945, 31157, 32508 #### [facility] [address] PHOSPHORUS BLOODon Phosphate [Mass/Vol] 2.4 mg/dL Low 2.5-5.0 [facility] Comment on above: Performed By: #### 0 0121, 61963, 47833, 01401, 81216, 06305, 16369, 91648 #### [facility] [address] PROSPERAon 02-16-2021 PROSPERA KIT Results to be mailed directly to physician's office by reference lab. Normal [facility] Comment on above: Result Comment: Test performed by [id number] [place] [address] No result expected. For billing and tracking purposes only. Specimen collected for transplant patient and sent to requesting hospital per Dr instructions. No charge. Performed By: #### 4 5506, 85436, 42816, 98376, 70911, 07987 #### [facility] [address] [facility]. [address] RESULT Results to be mailed directly to physician's office by reference lab. Normal [facility] Comment on above: Performed By: #### 4 5506, 12506, 22931, 32440, 77044, 37093 #### [facility] [address] [place] [address], [facility] PTH INTACTon 02-16-2021 PTH INTACT 123 pg/mL High 12-88 [facility] Comment on above: Performed By: #### 4 5506, 74249, 29595, 08680, 04560, 69883 #### [facility] [address] [place] [address], [facility] SINGLE ANTIGEN CLASS 1on METHOD Class I Single Antigen Normal [facility] Comment on above: Order Comment: Some [...] to frequency. Performed By: #### 4 5506, 62830, 93869, 53547, 53571, 02116 #### [facility] [address] [facility] [place] [address], [facility] SINGLE ANTIGEN CLASS 2on COMMENTS Normal [facility] Comment on above: Order Comment: Some [...] probable, due to frequency. Result Comment: Sim ntial specificites added to the watch list. Class II Antigen Microbeads Performed By: #### 4 5506, 53624, 94079, 16478, 65155, 82679 #### [facility] [address] [place] [address], [facility] Result Comment: No C lass I donor specific antibody identified Class I Antigen Microbeads METHOD Class II Single Antigen Normal [facility] Comment on above: Order Comment: [...] to frequency. Performed By: #### 4 5506, 11237, 07595, 93938, 10301, 09743 #### [facility] [address] [facility]. [address] SIGNED BY Normal [facility] Comment on above: Order Comment: Some [...] frequency. Result Comment: Jose A Lara MS,CHT(IRINEO),MT(ASCP) Shipping Associate, Transplant Immunology Performed By: #### 4 5506, 44642, 98733, 80867, 74125, 25161 #### [facility] [address] [facility]. [address] TACROLIMUSon 02-16-2021 Tacrolimus (Bld) [Mass/Vol] 7.0 ng/mL Normal 5.0-20.0 [facility] Comment on above: Result Comment: The [employer] Tacrolimus assay is a delayed one-step immunoassay for the quantitative determination of tacrolimus in human whole blood using the chemiluminescent microparticle immunoassay (CMIA) technology with flexible assay protocols, referred to as Chemiflex. Performed By: #### 4 5506, 34117, 82434, 01401, 18697, 07875 #### [facility] [address] [place] [address], [facility] TESTOSTERONE, FREE+SHBG+TOTA L ILon 02-16-2021 [place] Normal [facility] Comment on above: Result Comment: Test Performed by [employer] [address] [place], [place] [id number] - Released 02/16/2021 18:49 SEX HORM BIND GLOB 52 nmol/L Normal 11-80 [facility] Testosterone [Mass/Vol] 399 ng/dL Normal 220-1000 [facility] TESTOSTERONE, FREE 60.0 pg/mL Normal 47-244 [facility] Comment on above: Result Comment: The concentration of free testosterone is derived from a mathematical expression based on the constant for the binding of testosterone to albumin and/or sex hormone binding globulin. URIC ACID BLOODon 02-16-2021 Urate [Mass/Vol] 8.0 mg/dL High 4.4-7.6 [facility] Comment on above: Performed By: #### 0 0121, 93894, 42804, 55036, 36739, 83391, 69332, 82539 #### [facility] [address] [facility] [place] [address], [facility] VITAMIN D 25-HYDROXYon 02-16 VITAMIN D 25-OH 35.1 ng/mL Normal 30.0-80.0 [facility] Comment on above: Result Comment: >80. 0 Toxicity possible Performed By: #### 4 5506, 15030, 09568, 82559, 53798, 29706 #### [facility] [address] [facility] [place], [place] [id number] [place] [address] Social History Date Type Detail Facility Start: 11-11-2019 End: 03-05-2022 Tobacco smoking status NHIS Ex-smoker (finding) [facility] Start: 1950 Sex Assigned At Male [facility] Unknown if ever smoked [facility] Other Sex Assigned At Sex Assigned At Bir th [facility] Other Vital Signs Date Time Vital Sign Value Performing Clinician Facility 03-05-2022 09:30-0400 Diastolic blood pressure 74 mm[Hg] MD Jericho Mccarthy Work Phone: [facility] 03-05-2022 09:30-0400 Heart rate 58 /min MD Jericho Mccarthy Work Phone: [facility] 03-05-2022 09:30-0400 Respiratory rate 18 /min MD Jericho Mccarthy Work Phone: [facility] 03-05-2022 09:30-0400 SaO2% (BldA) [Mass fraction] 99 % MD Jericho Mccarthy Work Phone: [facility] 03-05-2022 09:30-0400 Systolic blood pressure 133 mm[Hg] MD Jericho Mccarthy Work Phone: [facility] 03-05-2022 07:01-0400 Body height 167.64 cm MD Jericho Mccarthy Work Phone: [facility] 03-05-2022 07:01-0400 Body temperature 97.9 [degF] MD Jericho Mccarthy Work Phone: [facility] 03-05-2022 07:01-0400 Body weight 74.84 kg MD Jericho Mccarthy Work Phone: [facility] 01-21-2022 10:30-0400 Body height 167.64 cm Tj Wells Other [facility] Other 01-21-2022 10:30-0400 Body mass index (BMI) [Ratio] 26.47 kg/m2 Tj Wells Other [facility] Other 01-21-2022 10:30-0400 Body weight 74.39 kg Tj Wells Other [facility] Other 01-21-2022 10:30-0400 Diastolic blood pressure 71 mm[Hg] Tj Wells Other [facility] Other 01-21-2022 10:30-0400 Systolic blood pressure 148 mm[Hg] Tj Wells Other [facility] Other Clinical Notes 09-09-2009 to 07-09-2023 Note Date & Type Note Facility 07-09-2023 Note 07/10/23 Chief Complaint Patient presents with Kidney Follow-up Patient has no major concerns today PCP: Jericho Mccarthy MD Txp Referring: Preferred Pharmacy: [id number] - [place], [place] - [address] [facility] [address] [facility] [address] [facility] [id number] [place] [address] [address] [facility] [address] [place] [address] [address] Subjective Visit Vitals BP 124/56 (BP Location: [...] Dose Status aMILoride (Midamor) 5 mg tablet [id number] No Take 5 mg by mouth in the morning. Historical Provider, Not Taking Flag for Review aMILoride (Midamor) 5 mg tablet [id number] Yes Take 1 tablet (5 mg) by mouth in the morning. Jericho Abad NP Taking Active amLODIPine (Norvasc) 10 mg tablet [id number] Yes Take 1 tablet (10 mg) by mouth in the morning. Benja Mcghee MD Taking Active atorvastatin (Lipitor) 10 mg tablet [id number] Yes Take 1 tablet (10 mg) by mouth every other day. Mario Egan NP Taking Active blood-glucose meter misc [id number] Yes Test daily before all meals/snacks and once before bedtime. With 100 lancets and strips Esther Garduno MD Taking Active carvedilol (Coreg) 12.5 mg tablet [id number] Yes Take 1 tablet (12.5 mg) by mouth with breakfast and with evening meal. Mario Egan NP Taking Active cinacalcet (Sensipar) 30 mg tablet [id number] Yes Take 1 tablet every day by oral route. Praveena Cohen MD Taking Active furosemide (Lasix) 20 mg tablet [id number] Yes take 1 tablet by mouth once daily Naga Bosch MD Taking Active insulin glargine (Lantus Solostar U-100 Insulin) 100 unit/mL (3 mL) injection pen [id number] Yes Inject 20 Units under the skin at bedtime. Esther Garduno MD Taking Active isopropyl alcohoL 70 % towelette [id number] Yes Test daily before all meals/snacks and once before bedtime. Esther Garduno MD Taking Active lisinopril 20 mg tablet [id number] Yes Take 1 tablet (20 mg) by mouth in the morning. Benja Mcghee MD Taking Active magnesium oxide (Mag-Ox) 400 mg (241.3 mg magnesium) tablet [id number] Yes Take 2 tablets (800 mg) by mouth in the morning, at noon, and at bedtime. take 2 tablets by mouth three times a day with meals Jericho Abad NP Taking Active metFORMIN (Glucophage) 500 mg tablet [id number] Yes Take 1 tablet (500 mg) by mouth with breakfast and with evening meal. Esther Garduno MD Taking Active mycophenolate (Myfortic) 180 mg EC tablet [id number] Yes Take 4 tablets (720 mg) by mouth in the morning and at bedtime. Jericho Abad NP Taking Active omeprazole OTC (PriLOSEC OTC) 20 mg EC tablet [id number] Yes Take 1 tablet (20 mg) by mouth before breakfast. Do not crush, chew, or split. Esther Garduno MD Taking Active pen needle, diabetic 31 gauge x 5/16 needle [id number] Yes Use to inject 1-4 times daily as directed. Esther Garduno MD Taking Active sildenafil (Revatio) 20 mg tablet [id number] Yes Take 1 tablet 3 times a day by oral route for 90 days. Benja Mcghee MD Taking Active sulfaSALAzine (Azulfidine) 500 mg EC tablet [id number] Yes Take 500 mg by mouth in the morning and at bedtime. Historical ProviderMD Taking Active tacrolimus (Prograf) 0.5 mg capsule [id number] Yes Take 1 capsule (0.5 mg) by [...] Diabetes Mother Hyperten (more content not included)... [facility] 07-08-2023 Note Left message for pat ient to take one extra lasix 20 mg today and we will retest tomorrow. Per Dr Bobbi dhaliwal. [facility] 07-08-[address] dk dhaliwal, patient added to Dr Moya schedule tomorrow am due to critical low sodium level of 124. Patient notified and will arrive between 8:30 am and 9 am for labs. [facility] 05-19-2023 Note Per phone order of ePtr woo MD, Mag IV 3 grams ordered Mag 1.3. BOP notified. Pt notified by phone, states he recently resumed the Amiloride. He is not certain he will agree to return for the infusion. 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 [facility] 05-19-2023 Note 05/19/23 Chief Complaint Patient presents with Kidney Follow-up No concerns PCP: Jericho Mccarthy MD Txp Referring: Preferred Pharmacy: [id number] [place], [place] - [address] [facility] [address] [facility] [address] [facility] [id number] [place] [place] [address] [address] [place] [id number] [facility] [address] [facility] [address] [place] [address] [place] [address] [address] Subjective Visit Vitals BP 120/62 (BP Location: [...] Dose Status aMILoride (Midamor) 5 mg tablet [id number] Yes Take 5 mg by mouth in the morning. Historical Provider, Taking Active amLODIPine (Norvasc) 10 mg tablet [id number] Yes Take 1 tablet (10 mg) by mouth in the morning. Benja Mcghee MD Taking Active atorvastatin (Lipitor) 10 mg tablet [id number] Yes Take 1 tablet (10 mg) by mouth every other day. Mario Egan NP Taking Active blood-glucose meter misc [id number] Yes Test daily before all meals/snacks and once before bedtime. With 100 lancets and strips Esther Garduno MD Taking Active carvedilol (Coreg) 12.5 mg tablet [id number] Yes Take 1 tablet (12.5 mg) by mouth with breakfast and with evening meal. Mario Egan NP Taking Active cinacalcet (Sensipar) 30 mg tablet [id number] Yes Take 1 tablet every day by oral route. Praveena Cohen MD Taking Active furosemide (Lasix) 20 mg tablet [id number] Yes take 1 tablet by mouth once daily Naga Bosch MD Taking Active insulin glargine (Lantus Solostar U-100 Insulin) 100 unit/mL (3 mL) injection pen [id number] Yes Inject 20 Units under the skin at bedtime. Esther Garduno MD Taking Active isopropyl alcohoL 70 % towelette [id number] Yes Test daily before all meals/snacks and once before bedtime. Esther Garduno MD Taking Active lisinopril 20 mg tablet [id number] Yes Take 1 tablet (20 mg) by mouth in the morning. Benja Mcghee MD Taking Active magnesium oxide (Mag-Ox) 400 mg (241.3 mg magnesium) tablet [id number] Yes take 2 tablets by mouth three times a day with meals Woodrow Root MD Taking Active metFORMIN (Glucophage) 500 mg tablet [id number] Yes Take 1 tablet (500 mg) by mouth with breakfast and with evening meal. Esther Garduno MD Taking Active mycophenolate (Myfortic) 180 mg EC tablet [id number] Yes Take 4 tablets (720 mg) by mouth in the morning and at bedtime. Jericho Abad NP Taking Active omeprazole OTC (PriLOSEC OTC) 20 mg EC tablet [id number] Yes Take 1 tablet (20 mg) by mouth before breakfast. Do not crush, chew, or split. Esther Garduno MD Taking Active pen needle, diabetic 31 gauge x 5/16 needle [id number] Yes Use to inject 1-4 times daily as directed. Esther Garduno MD Taking Active sildenafil (Revatio) 20 mg tablet [id number] Yes Take 1 tablet 3 times a day by oral route for 90 days. Benja Mcghee MD Taking Active sulfaSALAzine (Azulfidine) 500 mg EC tablet [id number] Yes Take 500 mg by mouth in the morning and at bedtime. Historical Provider, Taking Active tacrolimus (Prograf) 0.5 mg capsule [id number] Yes Take 1 capsule (0.5 mg) by [...] Brother ALS Brother (more content not included)... [facility] 05-14-2023 Note Patient states he mi ssed a few doses of magnesium and will get back started on and restart the amlodipine per Dr Dk dhaliwal. [facility] 04-30-2023 Note Attestation signed by Ananda [...] as a transfer from outside hospital in [place] for concerns of possible DKA, hyponatremia, and [...] Dose Status aMILoride (Midamor) 5 mg tablet [id number] Take 1 tablet (5 mg) by mouth in the morning. Woodrow Root MD Active amLODIPine (Norvasc) 10 mg tablet [id number] Take 1 tablet (10 mg) by mouth in the morning. Benja Mcghee MD Active atorvastatin (Lipitor) 10 mg tablet [id number] Take 1 tablet (10 mg) by mouth every other day. Mario Egan NP Active carvedilol (Coreg) 12.5 mg tablet [id number] Take 1 tablet (12.5 mg) by mouth with breakfast and with evening meal. Mario Egan NP Active cinacalcet (Sensipar) 30 mg tablet [id number] Take 1 tablet every day by oral route. Praveena Cohen MD Active furosemide (Lasix) 20 mg tablet [id number] take 1 tablet by mouth once daily Naga Bosch MD Active lisinopril 20 mg tablet [id number] Take 1 tablet (20 mg) by mouth in the morning. Benja Mcghee MD Active magnesium oxide (Mag-Ox) 400 mg (241.3 mg magnesium) tablet [id number] take 2 tablets by mo (more content not included)... [facility] 04-30-2023 Note Hospital Medicine Discharge Summary Final Discharge Diagnosis: DKA Admission Diagnosis: DAVID (acute kidney injury) (CMS/[facility]) [N17.9] Hospital course: 72 y.o. male who came from home with DAVID with hyponatremia and uncontrolled hyperglycemia. This is a 72 years old gentleman with a medical history of end-stage renal disease s/p renal transplant 3 years ago here in [place], peripheral vascular disease, pulmonary hypertension, CAD, and hypertension. Mixed hyperlipidemia, COPD, polycystic kidneys, cataract. Came in as transfer from the outside facility hospital in [place] for concern of possible uncontrolled hyperglycemia with [...] Center 05/02/2023 9:00 AM Ramos Hendrickson PA-C [facility] 05/19/2023 9:00 AM Jericho Abad NP [...] These medications were sent to [id number] - [place], [facility] [address] [address] blood-glucose meter [facility] insulin glargine 100 unit/mL (3 mL) injection [...] [phone] - (more content not included)... [facility] 04-29-2023 Note Hospital Medicine Daily Progress Note - 04/29/2023 11:18 AM; Room: [address] [place] [address] Admission: 04/27/2023 10:59 PM; Length of stay: 2 days THE HOSPITALIST TEAM PREFERS TO USE [employer] FOR COMMUNICATION 7AM-7PM. IF I DO NOT RESPOND WITHIN 15 MINUTES, PLEASE PAGE ME/CALL THROUGH THE AGRICULTURAL SYSTEMS SPECIALIST. FROM 7PM-7AM, PLEASE PAGE [phone](COVR) Code Status: Full Code Barriers to Discharge: [...] Problems Principal Problem: DAVID (acute kidney injury) ([facility]) Assessment and Plan # DKA in [...] Academy of Nutrition and Dietetics and the [place] Society of Enteral and Parenteral Nutrition, meets [...] 0.67-0.73. Medial ki (more content not included)... [facility] 04-29-2023 Note Attestation signed by Ananda [...] as a transfer from outside hospital in [place] for concerns of possible DKA, hyponatremia, and [...] Dose Status aMILoride (Midamor) 5 mg tablet [id number] Take 1 tablet (5 mg) by mouth in the morning. Woodrow Root MD Active amLODIPine (Norvasc) 10 mg tablet [id number] Take 1 tablet (10 mg) by mouth in the morning. Benja Mcghee MD Active atorvastatin (Lipitor) 10 mg tablet [id number] Take 1 tablet (10 mg) by mouth every other day. Mario Egan NP Active carvedilol (Coreg) 12.5 mg tablet [id number] Take 1 tablet (12.5 mg) by mouth with breakfast and with evening meal. Mario Egan NP Active cinacalcet (Sensipar) 30 mg tablet [id number] Take 1 tablet every day by oral route. Praveena Cohen MD Acti (more content not included)... [facility] 04-28-2023 Note Hospital Medicine Daily Progress Note - 04/28/2023 12:34 PM; Room: 5172/5172-01 Admission: 04/27/2023 10:59 PM; Length of stay: 1 days THE HOSPITALIST TEAM PREFERS TO USE [employer] FOR COMMUNICATION 7AM-7PM. IF I DO NOT RESPOND WITHIN 15 MINUTES, PLEASE PAGE ME/CALL THROUGH THE AGRICULTURAL SYSTEMS SPECIALIST. FROM 7PM-7AM, PLEASE PAGE [phone](COVR) Code Status: Full Code Barriers to Discharge: [...] Problems Principal Problem: DAVID (acute kidney injury) ([facility]) Assessment and Plan # DKA in [...] Academy of Nutrition and Dietetics and the [place] Society of Enteral and Parenteral Nutrition, meets [...] Cardiac silhouette is (more content not included)... [facility] 04-28-2023 Note . Hospital Medicine History and Physical 04/27/2023 11:16 PM THE HOSPITALIST TEAM PREFERS TO USE [employer]AT FOR COMMUNICATION 7AM-7PM. IF I DO NOT RESPOND WITHIN 15 MINUTES, PLEASE PAGE ME/CALL THROUGH THE AGRICULTURAL SYSTEMS SPECIALIST. FROM 7PM-7AM, PLEASE PAGE [phone](COVR) Chief Complaint No chief complaint on file. History of Present Illness Roger Suarez is an 72 y.o. male who came from home with DAVID with hyponatremia and uncontrolled hyperglycemia. This is a 72 years old gentleman with a medical history of end-stage renal disease s/p renal transplant 3 years ago here in [place], peripheral vascular disease, pulmonary hypertension, CAD, and hypertension. Mixed hyperlipidemia, COPD, polycystic kidneys, cataract. Came in as transfer from the outside facility hospital in [place] for concern of possible uncontrolled hyperglycemia with [...] Diagnosis Date Noted DAVID (acute kidney injury) ([facility]) 04/27/2023 COLD (chronic obstructive lung disease) ([facility]) 04/16/2023 Essential hypertension, benign 04/16/2023 Pleurisy with effusion 04/16/2023 Polycystic kidney 04/16/2023 Moderate mixed hyperlipidemia not requiring statin therapy 04/16/2022 Cataract 01/29/2022 Congestive heart failure ([facility]) 01/29/2022 Coronary atherosclerosis 01/29/2022 Multiple congenital cysts of kidney 01/29/2022 History of renal transplant 10/31/2021 Increased infection risk status post immunosuppressive therapy 10/31/2021 Peripheral vascular disease ([facility]) 01/23/2018 End-stage renal disease ([facility]) 07/22/2009 Assessment and Plan #Acute kidney [...] this hospital stay by a member of [facility]. Past Medical History Past Medical History: Diagnosis Date CHF (congestive heart failure) ([facility]/HCC) Chronic kidney disease Coronary artery disease Hypertension Pulmonary hypertension ([facility]/HCC) Past Surgical History Past Surgical History: Procedure [...] file Tobacco Use (more content not included)... [facility] 04-22-2023 Note [facility] Subjective Roger Suarez is a 72 y.o. year old male patient being seen for 6 mo follow up pulmonary hypertension, CAD, and hypertension. C/o dizziness and LUE numbness. Denies chest pain and palpitations. ORTEGA is intermittent. Patient Active Problem List Diagnosis Cataract Congestive heart failure ([facility]/HCC) Coronary atherosclerosis End-stage renal disease ([facility]) History of renal transplant Peripheral vascular disease ([facility]) Increased infection risk status post immunosuppressive therapy Multiple congenital cysts of kidney Moderate mixed hyperlipidemia not requiring statin therapy COLD (chronic obstructive lung disease) ([facility]/HCC) Essential hypertension, benign Pleurisy with effusion Polycystic [...] use: Not Currently Drug use: Never HPI Rgoer Suarez is seen in follow up. He [...] overload/acute heart failure admission on 08/2018 at [facility]. He had couple of dialysis session [...] lower extremity edema. Cardiac catheterization 03/04/2019: 1. [id number] single-vessel coronary artery disease with 50% stenosis in the mid to distal circumflex and minimal disease in the LAD and RCA. 2. Moderate elevation of filling pressures. 3. Moderate pulmonary hypertension. 4. Preserved cardiac output and cardiac index. RA 8, RV 59/4, 12. PA (more content not included)... [facility] 04-02-2023 Note New standing lab ord er placed in today's outgoing mail. Following call from clinic [facility] that pt is @ [facility] for lab draws, faxed to [phone] new order and requested [place] fax all lab results to [facility] as last monthly lab results were received September 2022. Pt notified order sent & mailed and to contact [facility] monthly when labs are completed to confirm receipt or have testing @ [place]. He acknowledged. Encouraged to FU next week with [facility]. [facility] 11-13-2022 Note Received call from mariam huntley inquiring about Amiloride. Rx sent as ordered on Friday. Pt mailed tips for diarrhea stating liquid Maalox is not helpful. States he is taking six Mag tablets every day. Reviewed probiotic and Miralax tip with pt by phone. Verbalized understanding. [facility] 11-11-2022 Note Updated Dk [place] by phone today Reviewed Mag level 1.3 and per MD phone order start Amiloride 5mg every day and to watch K levels. Detailed voicemail left on home phone [phone] with new Rx, reason for change and to watch K levels. Tac pending. No voicemail on listed cell phone. Spoke with lis Miller emergency contact [phone] who sets up his meds. She was advised of new RX and she stated she is unsure if pt is taking Mag Oxide due to side effects of diarrhea. Advised to resume dosing and discussed tips for diarrhea including liquid Maalox with each dose and she verbalized understanding (states she had kidney transplant and takes Mag). Plans to fill amiloride dosing. [facility] 11-11-2022 Note Notified pt that his Hgb AIC 8.5 and to contact PCP for improved glucose control to preserve health of kidney transplant and general health. Pt verbalized understanding. [facility] 11-11-2022 Note 11/11/22 Chief Complaint Patient presents with Kidney Follow-up 6 mo follow No concerns PCP: Jericho Mccarthy MD Txp Referring: [facility]: [facility]EM [facility][id number] [address] [phone] [facility] - [address] [address] Subjective Visit Vitals BP 134/61 (BP Location: Right arm, Patient Position: Sitting) Pulse 56 Temp 36.4 ???C (97.6 ???F) (Oral) Ht 1.676 m (5' 6 ) Wt 77.7 kg (171 lb 6.4 oz) BMI 27.66 kg/m??? Smoking Status Former BSA 1.9 m??? Allergies Allergen Reactions Nsaids (Non-Steroidal Anti-Inflammatory Drug) Medication Documentation Review Audit Reviewed by Judith Royal MA (Certified Ski Patroller) on 11/11/22 at 0830 Medication Order Taking? Sig Documenting Provider Last Dose Status amLODIPine (Norvasc) 10 mg tablet [id number] Yes Take 1 tablet (10 mg) by mouth in the morning. Benja Mcghee MD Taking Active atorvastatin (Lipitor) 10 mg tablet [id number] Yes Take 1 tablet (10 mg) by mouth every other day. Mario Egan NP Taking Active carvedilol (Coreg) 12.5 mg tablet [id number] Yes Take 1 tablet (12.5 mg) by mouth with breakfast and with evening meal. Mario Egan NP Taking Active cinacalcet (Sensipar) 30 mg tablet [id number] Yes Take 1 tablet every day by oral route. Praveena Cohen MD Taking Active furosemide (Lasix) 20 mg tablet [id number] Yes take 1 tablet by mouth once daily Naga Bosch MD Taking Active lisinopril 20 mg tablet [id number] Yes Take 1 tablet by mouth in the morning. Historical Provider, Taking Active magnesium oxide (Mag-Ox) 400 mg (241.3 mg magnesium) tablet [id number] Yes take 2 tablets by mouth three times a day with meals Woodrow Root MD Taking Active mycophenolate (Myfortic) 180 mg EC tablet [id number] Yes Take 4 tablets (720 mg) by mouth in the morning and at bedtime. Jericho Abad NP Taking Active sildenafil (Revatio) 20 mg tablet [id number] Yes Take 1 tablet 3 times a day by oral route for 90 days. Mario Egan NP Taking Active sulfaSALAzine (Azulfidine) 500 mg EC tablet [id number] Yes Take 500 mg by mouth in the morning and at bedtime. Historical Provider, Taking Active tacrolimus (Prograf) 0.5 mg capsule [id number] Yes Take 1 capsule (0.5 mg) by [...] 10/12/22 No documented travel since 10/12/22 HPI oRger Suarez is a 71 y.o. male who End-stage renal disease secondary to Polycystic Kidneys who underwent donor kidney transplant on 02/26/2020 (Kidney). 11/11/22 Pt here for office visit. Pt Hx: end-stage renal disease secondary to polycystic kidney disease and was on hemodialysis since 07/22/2009. He also has medical history of hypertension, heart roshan (more content not included)... [facility] 10-04-2022 Note Patient here for 6 m o follow up CAD, pulmonary hypertension, and hx of renal transplant. Just had monthly labs drawn yesterday. Denies chest pain and SOB. No new cardiac symptoms. Doing well. Review of Systems Cardiovascular: Positive for leg swelling. Musculoskeletal: Positive for arthritis and back pain. Neurological: Positive for light-headedness. All other systems reviewed and are negative. [facility] 10-04-2022 Note Cardiovascular Medic ine [facility] SUBJECTIVE Chief Complaint Patient presents with [...] Ref Range Status (more content not included)... [facility] 03-05-2022 Procedure note [facility] 01-21-2022 Evaluation note Encounter Date Diagnosis Assessment Notes Jan, Diarrhea (ICD-10 - R19.7) Colonoscopy Okay to take Imodium - 1 tablet every morning Jan, Fecal urgency (ICD-10 - R15.2) [facility] Other 05-01-2010 History general Narrative - Reported* [...] Hospitalization History Kidney Issue; on transplant list ([facility]) 02/2018 Hospitalization History pulmonary embolism 0 [facility] Other Evaluation noteNo assessment information available [facility] Work Phone: Evaluation note* Diagnosis Onset Date Resolution Status Diarrhea acute [facility] Work Phone: Hospital Discharge instructions [...] if you have any problems. -Office number [phone] [facility]ert [facility] Work Phone: Reason for visit NarrativePATIENT REFERRED BY DR. MCCARTHY FOR EVALUATION AND [facility] [employer] Other Summary Purpose Family History No Family [...] section and content) DATE CREATED AUTHOR 07/13/2019 [facility] DATE CREATED AUTHOR AUTHOR'S ORGANIZ ATION 11/02/2021 [facility] DATE CREATED AUTHOR AUTHOR'S ORGANIZ ATION 03/12/2022 [facility] DATE CREATED AUTHOR AUTHOR'S ORGANIZ ATION 10/18/2022 [facility] DATE CREATED AUTHOR AUTHOR'S ORGANIZ ATION 07/14/2023 [facility] DATE CREATED AUTHOR AUTHOR'S ORGANIZ ATION 08/25/2023 [facility] [employer] Care Teams (unrecognized sec tion and content) [...] BE BASED ON THE PRIMARY CLINICAL RECORDS. [employer] [facility]. provides no warranty or guarantee of the accuracy or completeness of information in this document.
[2023-10-30 07:38] LABS: Basophils Percent Auto 0.4 % (0.2-2.0); Eosinophils Absolute Auto 0.2 10^3/uL (0.0-0.7); Eosinophils Percent Auto 4.3 % (0.9-7.0); Hematocrit 33.9 % (42.0-54.0); Hemoglobin 10.8 g/dL (14.0-18.0); Immature Granulocytes Abs Auto 0.02 10^3/uL (0.00-0.03); Immature Granulocytes Pct Auto 0.4 % (0.0-0.5); Lymphocytes Absolute Auto 0.8 10^3/uL (1.2-3.8); Mean Corpuscular HGB Conc 31.9 g/dL (29.9-35.2); Mean Corpuscular Volume 91.1 fL (80.0-94.0); Mean Platelet Volume 9.2 fL (9.5-13.5); Monocytes Absolute Auto 0.5 10^3/uL (0.3-0.8); Monocytes Percent Auto 9.7 % (1.7-12.0); Neutrophils Absolute Auto 3.4 10^3/uL (1.4-6.5); Neutrophils Percent Auto 68.2 % (43.0-75.0); Platelet Count 293 10^3/uL (150-450); Red Blood Count 3.72 10^6/uL (4.70-6.10); Red Cell Distribution Width 14.6 % (11.0-15.0); White Blood Count 4.9 10^3/uL (4.0-11.0)
[2023-10-30 08:43] LABS: Alanine Aminotransferase 24 U/L (16-63); Albumin Globulin Ratio 1.1; Albumin Level 3.6 g/dL (3.4-5.0); Alkaline Phosphatase 153 U/L (46-116); Anion Gap 15.5; Aspartate Amino Transferase 19 U/L (15-37); BUN Creatinine Ratio 20.4; Bilirubin Direct 0.2 mg/dL (0.0-0.2); Bilirubin Total 0.5 mg/dL (0.2-1.0); Calcium 8.1 mg/dL (8.5-10.1); Carbon Dioxide 26.6 mmol/L (21.0-32.0); Chloride 102 mmol/L (98-107); Chol HDL Ratio 1.4; Cholesterol 74 mg/dL (<=200); Estimated GFR (African America >60 (>=60); Estimated GFR (Non-African Ame >60 (>=60); Globulin 3.2 g/dL; Glucose 82 mg/dL (74-106); HDL Cholesterol 52 mg/dL (40-60); Magnesium 1.3 mg/dL (1.8-2.4); Phosphorus 4.4 mg/dL (2.6-4.7); Potassium 4.1 mmol/L (3.5-5.1); Sodium 140 mmol/L (136-145); Total Protein 6.8 g/dL (6.4-8.2); Triglycerides <15 mg/dL (<=150); Uric Acid 6.1 mg/dL (3.5-7.2)
[2023-10-30 08:47] LABS: Estimated Average Glucose 114 mg/dL; Glycohemoglobin A1C 5.6 % (4.5-6.2)
[2023-10-31 04:08] LABS: Sex Horm Binding Glob, Serum 80.5 nmol/L (19.3-76.4)
[2023-11-01 13:10] LABS: BKV DNA, Quant PCR, Plasma Positive <22 IU/mL (Negative)
== END 2023-10-30 06:57 | disposition home or self-care (01) ==
LOC: LAB 06:58
PROVIDERS: PCP Family Medicine; Visit Provider Urology
DX: R73.02 Impaired glucose tolerance (oral) (principal); Z94.0 Kidney transplant status
CPT/HCPCS: 36415; 80053; 80061; 80197; 82248; 83036; 83735; 84100; 84270; 84402; 84403; 84550; 85025; 87799

== ENCOUNTER 2023-12-05 06:57 | Outpatient (OUT) | payer MEDICARE, OTHER, SELFPAY ==
--- OUTSIDE RECORDS SUMMARY | 2023-12-05 07:03 | XMS_ITS | CCD ---
Author Organization [facility] Care Team Providers Care Smocker Name Role Phone Tj Wells Unavailable MD [...] NADERER, DR JERICHO Floyd Primary Care Unavailable KASAAN, DR MERRITT Consulting Unavailable KASAAN, DR MERRITT Attending Unavailable KASAAN, DR MERRITT Admitting Unavailable NADERER, DR FERGUSON A Primary Care Unavailable MISC, DR ALVAREZ Attending Unavailable MISC, DR ALVAREZ Admitting Unavailable NADERER, DR FERGUSON A Primary Care Unavailable MISC, DR ALVAREZ Consulting Unavailable KASAAN, DR MERRITT Consulting Unavailable KASAAN, DR MERRITT Attending Unavailable NADERER, DR FERGUSON A Primary Care Unavailable KASAAN, DR MERRITT Admitting Unavailable MISC, DR ALVAREZ [...] FABIO, DR FERGUSON A Primary Care Unavailable HAY ., DR WINTERS Consulting Unavailable HAY ., DR WINTERS Attending Unavailable HAY ., DR WINTERS Admitting Unavailable MIS, DR ALVAREZ Admitting Unavailable MIS, DR ALVAREZ Consulting Unavailable FABIO, DR JERICHO Floyd Primary Care Unavailable MISC, DR ALVAREZ Attending Unavailable MISC, DR ALVAREZ Attending Unavailable MISC, DR ALVAREZ Admitting Unavailable MISC, DR ALVAREZ Consulting Unavailable FABIO, DR FERGUSON A Primary Care Unavailable FABIO, JERICHO Attending Unavailable NADERENate, JERICHO Attending Unavailable HORANI, ESTHER Referring Unavailable KATKO, MENDY Referring Unavailable CHRISTIAN, GYPSY Admitting Unavailable HORANI, ESTHER Attending Unavailable MERZA, NOORALDIN Referring Unavailable MERZA, NOORALDIN Referring Unavailable CRISENJAMEE, JERICHO Attending Unavailable CRISENBERY, JERICHO Attending Unavailable MOUKARBEL, BENJA Attending Unavailable SAVZYAN, SANTANA Attending Unavailable AKRAMYESHA, PRICE Attending Unavailable Allergies Allergy Classification Reported Allergen(s) Allergy Type Date of Onset Reaction(s) Facility (1 source) NSAIDs; Translations: [NSAIDS (NON-STEROIDAL ANTI-INFLAMMATOR Y DRUG)] Propensity to adverse reactions to drug (disorder) 2 [facility] Repository Medications Current Medications Medication Drug Class(es) [...] 2 MCG IVP MWF DURING DIALYSIS PER [facility] (08/26/18) 5 ml sodium ferric gluconate complex 12.5 mg/ml injection (2 sources) Start: 07-08-2017 End: 03-05-2022 Sodium Ferric Gluconat-Sucrose (Ferrlecit) 62.5 mg/5 mL Solution Discontinued 125 MG IV Q14D July 08, 2017 1:00am March 05, 2022 7:07am RECEIVES FERRLECIT 125MG IVP EVERY OTHER FRIDAY (DOSE DUE 08/26/18 PER [facility]) Problems Active Problems Problem Classification Problem Date Documented Date Episodic/Chronic Chronic kidney disease (16 sources) Dependence on renal dialysis; Translations: [Dependence on renal dialysis] Onset: 01-05-20 22 08-26-2018 Chronic Congestive heart failure; nonhypertensive (2 sources) Chronic systolic (congestive) heart failure; Translations: [Chronic systolic (congestive) heart failure] Onset: 01-30-20 Chronic Coronary atherosclerosis and other heart disease (2 sources) Atherosclerotic heart disease of habematolel coronary artery without angina pectoris; Translations: [Atherosclerotic heart disease of habematolel coronary artery without angina pectoris] Onset: 04-22-20 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) 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; Translations: [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] Onset: 04-27-20 Chronic Disorders of lipid metabolism (1 source) Pure hypercholesterolemia, unspecified; Translations: [PURE HYPERCHOLESTEROLEMIA UNSPEC] Onset: 11-17-19 Chronic Esophageal disorders (2 sources) Gastroesophageal reflux disease; Translations: [Gastro-esophageal reflux disease without esophagitis] 08-26-2018 Chronic Essential hypertension (5 sources) Hypertensive disorder; Translations: [Essential (primary) hypertension] Onset: 11-17-19 22 08-26-2018 Chronic Genitourinary congenital anomalies (3 sources) Multiple congenital cysts of kidney; Translations: [Polycystic kidney, unspecified] 08-26-2018 Chronic Hypertension with complications and secondary hypertension (2 sources) Hypertensive emergency; Translations: [Hypertensive emergency] 08-26-2018 Chronic Other aftercare (6 sources) 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; 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 [facility] 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 Other [...] (2 sources) Hypomagnesemia; Translations: [Hypomagnesemia] Onset: 05-19-19 Chronic Pulmonary heart disease (2 sources) Primary pulmonary hypertension; Translations: [Primary pulmonary hypertension] Onset: 04-22-20 23 Chronic Respiratory failure; insufficiency; arrest (adult) (2 [...] Classification Problem Date Documented Da te Episodic/Chronic Acute and unspecified renal failure (2 sources) Acute kidney failure, unspecified; Translations: [Acute kidney failure, unspecified] Onset: 04-27-2023 Episodic Diabetes mellitus without complication (2 sources) Impaired glucose tolerance (oral); Translations: [Impaired glucose tolerance (oral)] Onset: 07-09-2023 Episodic Fluid and electrolyte disorders (2 sources) Hypo-osmolality and hyponatremia; Translations: [Hypo-osmolality and hyponatremia] Onset: 07-09-2023 Episodic Nausea and vomiting (3 sources) Nausea with vomiting, unspecified; Translations: [NAUSEA WITH VOMITING UNSPECIFIED] Onset: 11-14-2021 Episodic Noninfectious gastroenteritis (1 source) Noninfective gastroenteritis and colitis, unspecified; Translations: [NONINFECTIVE GE AND COLITIS UNS] Onset: 11-16-2021 Episodic Other aftercare (1 source) Other care home (current) drug therapy; Translations: [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 DRUG THERAPY] Onset: 03-10-2022 Episodic Other [...] Interpretation Reference Range Facility BILIRUBIN, DIRECTon 07-09-19 24 Magnesium [Mass/Vol] 0.2 mg/dL Normal 0-0.2 [facility] Comment on above: Performed By: #### L [id number] #### [facility] ([facility] [address] [place] [address] CBC WITH AUTO DIFFERENTIALon 07-09-2023 Basophils (Bld) [#/Vol] 0.03 10*3/uL Normal 0.00-0.20 [facility] Comment on above: Performed By: #### L [id number] #### [facility] ([facility]) [address] [place] [address] Basophils/100 WBC (Bld) 0.4 % Normal 0.0-1.0 [facility] Comment on above: Performed By: #### L [id number] #### [facility] ([facility]) [address] [place] [address] Eosinophils (Bld) [#/Vol] 0.16 10*3/uL Normal 0.00-0.50 [facility] Comment on above: Performed By: #### L [id number] #### [facility] ([facility]) [address] [place] [address] Eosinophils/100 WBC (Bld) 1.9 % Normal 0.0-6.0 [facility] Comment on above: Performed By: #### L [id number] #### [facility] ([facility]) [address] [place] [address] Erythrocyte distribution width (RBC) [Ratio] 14.0 % Normal 11.5-15.0 [facility] Comment on above: Performed By: #### L [id number] #### [facility] ([facility]) [address] [place] [address] ERYTHROCYTE MEAN CORPUSCULAR HEMOGLOBIN CONCENTRATION (G/DL) BY AUTOMATED 34.4 g/dL Normal 32.0-35.0 [facility] Comment on above: Performed By: #### L [id number] #### [facility] ([facility]) [address] [place] [address] Hematocrit (Bld) [Volume fraction] 32.3 % Low 39.0-55.0 [facility] Comment on above: Performed By: #### L [id number] #### [facility] ([facility]) [address] [place] [address] Hemoglobin (Bld) [Mass/Vol] 11.1 g/dL Low 13.0-17.0 [facility] Comment on above: Performed By: #### L [id number] #### [facility] ([facility]) [address] [place] [address] Immature granulocytes (Bld) [#/Vol] 0.05 10*3/uL Normal 0.00-0.20 [facility] Comment on above: Performed By: #### L [id number] #### [facility] ([facility]) [address] [place] [address] Immature granulocytes/100 WBC (Bld) 0.6 % Normal 0.0-1.0 [facility] Comment on above: Performed By: #### L [id number] #### [facility] ([facility]) [address] [place] [address] Lymphocytes (Bld) [#/Vol] 1.08 10*3/uL Low 1.20-4.00 [facility] Comment on above: Performed By: #### L [id number] #### [facility] ([facility]) [address] [place] [address] Lymphocytes/100 WBC (Bld) 12.7 % Low 20.0-45.0 [facility] Comment on above: Performed By: #### L [id number] #### [facility] ([facility]) [address] [place] [address] MCH (RBC) [Entitic mass] 30.0 pg Normal 27.0-33.0 [facility] Comment on above: Performed By: #### L [id number] #### [facility] ([facility]) [address] [place] [address] MCV (RBC) [Entitic vol] 87.3 fL Normal 82.0-98.0 [facility] Comment on above: Performed By: #### L [id number] #### [facility] ([facility]) [address] [place] [address] Monocytes (Bld) [#/Vol] 0.67 10*3/uL Normal 0.10-1.00 [facility] Comment on above: Performed By: #### L [id number] #### [facility] ([facility]) [address] [place] [address] Monocytes/100 WBC (Bld) 7.9 % Normal 5.0-12.0 [facility] Comment on above: Performed By: #### L [id number] #### [facility] ([facility]) [address] [place] [address] Neutrophils (Bld) [#/Vol] 6.49 10*3/uL Normal 1.60-7.60 [facility] Comment on above: Performed By: #### L [id number] #### [facility] ([facility]) [address] [place] [address] Neutrophils/100 WBC (Bld) 76.5 % High 40.0-72.0 [facility] Comment on above: Performed By: #### L [id number] #### [facility] ([facility]) [address] [place] [address] NRBC (PER 100 WBCS) BY AUTOMATED COUNT 0.0 % Normal 0 [facility] Comment on above: Performed By: #### L [id number] #### [facility] ([facility]) [address] [place] [address] PLATELETS (10*3/UL) IN BLOOD AUTOMATED COUNT 271 10*3/uL Normal 150-400 [facility] Comment on above: Performed By: #### L [id number] #### [facility] ([facility]) [address] [place] [address] RBC (Bld) [#/Vol] 3.70 10*6/uL Low 4.20-5.70 [facility] Comment on above: Performed By: #### L [id number] #### [facility] ([facility]) [address] [place] [address] WBC (Bld) [#/Vol] 8.48 10*3/uL Normal 4.00-10.60 [facility] Comment on above: Performed By: #### L [id number] #### [facility] ([facility]) [address] [place] [address] COMPREHENSIVE METABOLIC PANE Claudio 07-09-2023 Albumin [Mass/Vol] 4.4 g/dL Normal 3.5-5.7 [facility] Comment on above: Performed By: #### L [id number] #### [facility] ([facility]) [address] [place] [address] ALP [Catalytic activity/Vol] 82 U/L Normal 34-104 [facility] Comment on above: Performed By: #### L [id number] #### [facility] ([facility]) [address] [place] [address] ALT [Catalytic activity/Vol] 9 U/L Normal 7-52 [facility] Comment on above: Performed By: #### L [id number] #### [facility] ([facility]) [address] [place] [address] Anion gap [Moles/Vol] 15 mmol/L Normal 7-20 [facility] Comment on above: Performed By: #### L [id number] #### [facility] ([facility]) [address] [place] [address] AST [Catalytic activity/Vol] 14 U/L Normal 13-39 [facility] Comment on above: Performed By: #### L [id number] #### [facility] ([facility]) [address] [place] [address] Bilirubin [Mass/Vol] 0.5 mg/dL Normal 0.3-1.0 [facility] Comment on above: Performed By: #### L [id number] #### [facility] ([facility]) [address] [place] [address] Calcium [Mass/Vol] 9.1 mg/dL Normal 8.6-10.3 [facility] Comment on above: Performed By: #### L [id number] #### [facility] ([facility]) [address] [place] [address] Chloride [Moles/Vol] 93 mmol/L Low 98-107 [facility] Comment on above: Performed By: #### L [id number] #### [facility] ([facility]) [address] [place] [address] CO2 [Moles/Vol] 22 mmol/L Normal 21-31 [facility] Comment on above: Performed By: #### L [id number] #### [facility] ([facility]) [address] [place] [address] Creatinine [Mass/Vol] 1.01 mg/dL Normal 0.70-1.30 [facility] Comment on above: Performed By: #### L [id number] #### [facility] ([facility]) [address] [place] [address] GLOMERULAR FILTRATION RATE ML/MIN/1.73 SQ M.PREDICTED 79.5 mL/min/1.73m*2 Normal >60.0 [facility] Comment on above: Result Comment: [facility]???s estimated glomerular filtration rate (eGFR) will no [...] individuals. Performed By: #### L [id number] #### [facility] ([facility]) [address] [place] [address] Glucose [Mass/Vol] 86 mg/dL Normal 70-100 [facility] Comment on above: Performed By: #### L [id number] #### [facility] ([facility]) [address] [place] [address] Potassium [Moles/Vol] 5.2 mmol/L High 3.5-5.1 [facility] Comment on above: Performed By: #### L [id number] #### [facility] ([facility]) [address] [place] [address] Protein [Mass/Vol] 6.8 g/dL Normal 6.0-8.3 [facility] Comment on above: Performed By: #### L [id number] #### [facility] ([facility]) [address] [place] [address] Sodium [Moles/Vol] 125 mmol/L Low 136-145 [facility] Comment on above: Performed By: #### L [id number] #### [facility] ([facility]) [address] [place] [address] Urea nitrogen [Mass/Vol] 17 mg/dL Normal 7-25 [facility] Comment on above: Performed By: #### L [id number] #### [facility] ([facility]) [address] [place] [address] UREA NITROGEN/CREATININE (MASS RATIO) IN SER/PLAS 16.8 Normal [facility] Comment on above: Performed By: #### L [id number] #### [facility] ([facility]) [address] [place] [address] Follow-Upon 07-09-2023 Follow-Up [id number] Wm Suarez 1950 M Date Provider Department Center 07/09/2023 [id number], SAMER TXP None Family History Problem Relation Age of Onset Diabetes Mother Hypertension Mother Coronary artery disease Mother Other Mother Cystic kidney disease Mother Hypertension Father Skin cancer Father Cystic kidney disease Father Cystic kidney disease Sister Heart disease Brother ALS Brother Cystic kidney disease Brother Family Status - Relation Status Age at Mother Father Sister Brother Level of Service:62478 [place] OFFICE/OUTPATIENT ESTABLISHED LOW MDM 20 MIN Reason for Visit and Comments: Kidney Follow-up [] - Patient has no major concerns today Normal [facility] HEMOGLOBIN A1Con 07-09-2023 Glucose [Mass/Vol] 160 mg/dL Normal [facility] Comment on above: Performed By: #### L [id number] #### [facility] ([facility]) [address] [place] [address] HbA1c (Bld) [Mass fraction] 7.2 % High 4.0-6.0 [facility] Comment on above: Performed By: #### L [id number] #### [facility] ([facility]) [address] [place] [address] Labon 07-09-2023 Lab [id number] Wm Suarez 1950 [facility] Provider Department Center 07/09/[id number] DRAW STATION KXT Draw [facility] Family History Problem Relation Age of Onset Diabetes Mother Hypertension Mother Coronary artery disease Mother Other Mother Cystic kidney disease Mother Hypertension Father Skin cancer Father Cystic kidney disease Father Cystic kidney disease Sister Heart disease Brother ALS Brother Cystic kidney disease Brother Family Status - Relation Status Age at Mother Father Sister Brother Normal [facility] MAGNESIUMon 07-09-2023 Magnesium [Mass/Vol] 1.5 mg/dL Low 1.9-2.7 [facility] Comment on above: Performed By: #### L [id number] #### [facility] ([facility]) [address] [place] [address] OSMOLALITYon 07-09-2023 OSMOLALITY MEASURED 272 mOsm/kg Low 275-295 [facility] Comment on above: Result Comment: Test Performed by [facility] [place] [address] - Released 07/09/2023 16:01 Performed By: #### L [id number] #### [facility] ([facility]) [address] [place] [address] Orders Onlyon 07-09-2023 Orders Only [id number] Wm Suarez 1950 M Date Provider Department [...] Age at Mother Father Sister Brother Normal [facility] PHOSPHORUSon 07-09-2023 Magnesium [Mass/Vol] 4.6 mg/dL Normal 2.5-5.0 [facility] Comment on above: Performed By: #### L [id number] #### [facility] ([facility]) [address] [place] [address] TACROLIMUS LEVELon Tacrolimus (Bld) [Mass/Vol] 4.3 ng/mL Low 5.0-20.0 [facility] Comment on above: Result Comment: The GARC[employer] SAMPLE BEVELER Tacrolimus assay is a delayed one-step immunoassay for the quantitative determination of tacrolimus in human whole blood using the chemiluminescent microparticle immunoassay (CMIA) technology with flexible assay protocols, referred to as Chemiflex. Performed By: #### L [id number] #### [facility] ([facility]) [address] [place] [address] URIC ACIDon 07-09-2023 Magnesium [Mass/Vol] 6.2 mg/dL Normal 4.4-7.6 [facility] Comment on above: Performed By: #### L [id number] #### [facility] ([facility] [address] [place] [address] Orders Onlyon 06-11-2023 Orders Only [id number] Wm Suarez 1950 M Date Provider Department Center 06/11/2023 JERICHO MOY [facility] [place] [facility] Family History Problem Relation Age of Onset Diabetes Mother Hypertension Mother Coronary artery disease Mother Other Mother Cystic kidney disease Mother Hypertension Father Skin cancer Father Cystic kidney disease Father Cystic kidney disease Sister Heart disease Brother ALS Brother Cystic kidney disease Brother Family Status - Relation Status Age at Mother Father Sister Brother Normal [facility] BILIRUBIN, DIRECTon 05-19-19 Magnesium [Mass/Vol] 0.1 mg/dL Normal 0-0.2 [facility] Comment on above: Performed By: #### L [id number] #### [facility] ([facility]) [address] [place] [address] CBC WITH AUTO DIFFERENTIALon 05-19-2023 Basophils (Bld) [#/Vol] 0.03 10*3/uL Normal 0.00-0.20 [facility] Comment on above: Performed By: #### L [id number] #### [facility] ([facility]) [address] [place] [address] Basophils/100 WBC (Bld) 0.4 % Normal 0.0-1.0 [facility] Comment on above: Performed By: #### L [id number] #### [facility] ([facility]) [address] [place] [address] Eosinophils (Bld) [#/Vol] 0.18 10*3/uL Normal 0.00-0.50 [facility] Comment on above: Performed By: #### L [id number] #### [facility] ([facility]) [address] [place] [address] Eosinophils/100 WBC (Bld) 2.7 % Normal 0.0-6.0 [facility] Comment on above: Performed By: #### L [id number] #### [facility] ([facility]) [address] [place] [address] Erythrocyte distribution width (RBC) [Ratio] 13.7 % Normal 11.5-15.0 [facility] Comment on above: Performed By: #### L [id number] #### [facility] ([facility]) [address] [place] [address] ERYTHROCYTE MEAN CORPUSCULAR HEMOGLOBIN CONCENTRATION (G/DL) BY AUTOMATED 32.9 g/dL Normal 32.0-35.0 [facility] Comment on above: Performed By: #### L [id number] #### [facility] ([facility]) [address] [place] [address] Hematocrit (Bld) [Volume fraction] 34.0 % Low 39.0-55.0 [facility] Comment on above: Performed By: #### L [id number] #### [facility] ([facility]) [address] [place] [address] Hemoglobin (Bld) [Mass/Vol] 11.2 g/dL Low 13.0-17.0 [facility] Comment on above: Performed By: #### L [id number] #### [facility] ([facility]) [address] [place] [address] Immature granulocytes (Bld) [#/Vol] 0.02 10*3/uL Normal 0.00-0.20 [facility] Comment on above: Performed By: #### L [id number] #### [facility] ([facility]) [address] [place] [address] Immature granulocytes/100 WBC (Bld) 0.3 % Normal 0.0-1.0 [facility] Comment on above: Performed By: #### L [id number] #### [facility] ([facility]) [address] [place] [address] Lymphocytes (Bld) [#/Vol] 0.80 10*3/uL Low 1.20-4.00 [facility] Comment on above: Performed By: #### L [id number] #### [facility] ([facility]) [address] [place] [address] Lymphocytes/100 WBC (Bld) 11.9 % Low 20.0-45.0 [facility] Comment on above: Performed By: #### L [id number] #### [facility] ([facility]) [address] [place] [address] MCH (RBC) [Entitic mass] 29.4 pg Normal 27.0-33.0 [facility] Comment on above: Performed By: #### L [id number] #### [facility] ([facility] [address] [place] [address] MCV (RBC) [Entitic vol] 89.2 fL Normal 82.0-98.0 [facility] Comment on above: Performed By: #### L [id number] #### [facility] ([facility] [address] [place] [address] Monocytes (Bld) [#/Vol] 0.54 10*3/uL Normal 0.10-1.00 [facility] Comment on above: Performed By: #### L [id number] #### [facility] ([facility]) [address] [place] [address] Monocytes/100 WBC (Bld) 8.0 % Normal 5.0-12.0 [facility] Comment on above: Performed By: #### L [id number] #### [facility] ([facility]) [address] [place] [address] Neutrophils (Bld) [#/Vol] 5.14 10*3/uL Normal 1.60-7.60 [facility] Comment on above: Performed By: #### L [id number] #### [facility] ([facility]) [address] [place] [address] Neutrophils/100 WBC (Bld) 76.7 % High 40.0-72.0 [facility] Comment on above: Performed By: #### L [id number] #### [facility] ([facility]) [address] [place] [address] NRBC (PER 100 WBCS) BY AUTOMATED COUNT 0.0 % Normal 0 [facility] Comment on above: Performed By: #### L [id number] #### [facility] ([facility]) [address] [place] [address] PLATELETS (10*3/UL) IN BLOOD AUTOMATED COUNT 271 10*3/uL Normal 150-400 [facility] Comment on above: Performed By: #### L [id number] #### [facility] ([facility]) [address] [place] [address] RBC (Bld) [#/Vol] 3.81 10*6/uL Low 4.20-5.70 [facility] Comment on above: Performed By: #### L [id number] #### [facility] ([facility] [address] [place] [address] WBC (Bld) [#/Vol] 6.71 10*3/uL Normal 4.00-10.60 [facility] Comment on above: Performed By: #### L [id number] #### [facility] ([facility] [address] [place] [address] COMPREHENSIVE METABOLIC PANE Claudio 05-19-2023 Albumin [Mass/Vol] 4.5 g/dL Normal 3.5-5.7 [facility] Comment on above: Performed By: #### L [id number] #### [facility] ([facility]) [address] [place] [address] ALP [Catalytic activity/Vol] 85 U/L Normal 34-104 [facility] Comment on above: Performed By: #### L [id number] #### [facility] ([facility] [place]) [address] [place] [address] ALT [Catalytic activity/Vol] 10 U/L Normal 7-52 [facility] Comment on above: Performed By: #### L [id number] #### [facility] ([facility] [place]) [address] [place] [address] Anion gap [Moles/Vol] 15 mmol/L Normal 7-20 [facility] Comment on above: Performed By: #### L [id number] #### [facility] ([facility]) [address] [place] [address] AST [Catalytic activity/Vol] 13 U/L Normal 13-39 [facility] Comment on above: Performed By: #### L [id number] #### [facility] ([facility]) [address] [place] [address] Bilirubin [Mass/Vol] 0.5 mg/dL Normal 0.3-1.0 [facility] Comment on above: Performed By: #### L [id number] #### [facility] ([facility]) [address] [place] [address] Calcium [Mass/Vol] 9.1 mg/dL Normal 8.6-10.3 [facility] Comment on above: Performed By: #### L [id number] #### [facility] ([facility]) [address] [place] [address] Chloride [Moles/Vol] 99 mmol/L Normal 98-107 [facility] Comment on above: Performed By: #### L [id number] #### [facility] ([facility]) [address] [place] [address] CO2 [Moles/Vol] 22 mmol/L Normal 21-31 [facility] Comment on above: Performed By: #### L [id number] #### [facility] ([facility]) [address] [place] [address] Creatinine [Mass/Vol] 0.85 mg/dL Normal 0.70-1.30 [facility] Comment on above: Performed By: #### L [id number] #### [facility] ([facility]) [address] [place] [address] GLOMERULAR FILTRATION RATE ML/MIN/1.73 SQ M.PREDICTED 92.9 mL/min/1.73m*2 Normal >60.0 [facility] Comment on above: Result Comment: [facility]???s estimated glomerular filtration rate (eGFR) will no [...] individuals. Performed By: #### L [id number] #### [facility] ([facility]) [address] [place] [address] Glucose [Mass/Vol] 107 mg/dL High 70-100 [facility] Comment on above: Performed By: #### L [id number] #### [facility] ([facility]) [address] [place] [address] Potassium [Moles/Vol] 4.9 mmol/L Normal 3.5-5.1 [facility] Comment on above: Performed By: #### L [id number] #### [facility] ([facility]) [address] [place] [address] Protein [Mass/Vol] 6.7 g/dL Normal 6.0-8.3 [facility] Comment on above: Performed By: #### L [id number] #### [facility] ([facility]) [address] [place] [address] Sodium [Moles/Vol] 131 mmol/L Low 136-145 [facility] Comment on above: Performed By: #### L [id number] #### [facility] ([facility]) [address] [place] [address] Urea nitrogen [Mass/Vol] 15 mg/dL Normal 7-25 [facility] Comment on above: Performed By: #### L [id number] #### [facility] ([facility]) [address] [place] [address] UREA NITROGEN/CREATININE (MASS RATIO) IN SER/PLAS 17.6 Normal [facility] Comment on above: Performed By: #### L [id number] #### [facility] ([facility]) [address] [place] [address] Follow-Upon 05-19-2023 Follow-Up [id number] Wm Suarez 1950 M Date Provider Department Center 05/19/2023 124-JERICHO ABAD None Family History Problem Relation Age of Onset Diabetes Mother Hypertension Mother Coronary artery disease Mother Other Mother Cystic kidney disease Mother Hypertension Father Skin cancer Father Cystic kidney disease Father Cystic kidney disease Sister Heart disease Brother ALS Brother Cystic kidney disease Brother Family Status - Relation Status Age at Mother Father Sister Brother Level of Service:36126 [place] OFFICE/OUTPATIENT ESTABLISHED MOD MDM 30 MIN Reason for Visit and Comments: Kidney Follow-up [] - No concerns Normal [facility] LIPID PANELon 05-19-2023 CHOL/HDL 1.9 mg/dL Normal [facility] Comment on above: Performed By: #### L [id number] ####[facility] ([employer])[address] [place] [address] Cholesterol [Mass/Vol] 88 mg/dL Low 120-200 [facility] Comment on above: Performed By: #### L [id number] ####[facility] ([employer])[address] [place] [address] Magnesium [Mass/Vol] 53 mg/dL Normal 40-149 [facility] Comment on above: Result Comment: TRIG LYCERIDE REFERENCE RANGE: 20 YEARS AND OLDER CARDIOVASCULAR RISK LESS THAN 150 mg/dL LOW RISK 150 TO 199 mg/dL BORDERLINE RISK 200 mg/dL AND GREATER HIGH RISK Performed By: #### L [id number] ####[facility] ([employer])[address] [place] [address] Magnesium [Mass/Vol] 30 mg/dL Normal 0-160 [facility] Comment on above: Performed By: #### L [id number] ####[facility] ([facility])[address] [place] [address] Magnesium [Mass/Vol] 47 mg/dL Normal 23-92 [facility] Comment on above: Performed By: #### L [id number] ####[facility] ([facility])[address] [place] [address] NON HDL CHOL. (LDL+VLDL) 41 Normal [facility] Comment on above: Performed By: #### L [id number] ####[facility] ([employer])[address] [place] [address] TOTAL VLDL-C 11 mg/dL Normal 0-40 [facility] Comment on above: Performed By: #### L [id number] ####[facility] ([facility] [place] [address] Labon 05-19-2023 Lab [id number] Wm Suarez 1950 M Date Provider Department Center 05/19/202333312-UZT DRAW STATION KXT Draw [facility] Family History Problem Relation Age of Onset Diabetes Mother Hypertension Mother Coronary artery disease Mother Other Mother Cystic kidney disease Mother Hypertension Father Skin cancer Father Cystic kidney disease Father Cystic kidney disease Sister Heart disease Brother ALS Brother Cystic kidney disease Brother Family Status - Relation Status Age at Mother Father Sister Brother Normal [facility] MAGNESIUMon 05-19-2023 Magnesium [Mass/Vol] 1.3 mg/dL Low 1.9-2.7 [facility] Comment on above: Performed By: #### L [id number] #### [facility] ([facility]) [address] [place] [address] Orders Onlyon 05-19-2023 Orders Only [id number] Wm Suarez 1950 M Date Provider Department Center 05/19/2023 Anamika-LINK SUAREZP None Family History Problem Relation Age of Onset Diabetes Mother Hypertension Mother Coronary artery disease Mother Other Mother Cystic kidney disease Mother Hypertension Father Skin cancer Father Cystic kidney disease Father Cystic kidney disease Sister Heart disease Brother ALS Brother Cystic kidney disease Brother Family Status - Relation Status Age at Mother Father Sister Brother Normal [facility] PHOSPHORUSon 05-19-2023 Magnesium [Mass/Vol] 4.5 mg/dL Normal 2.5-5.0 [facility] Comment on above: Performed By: #### L [id number] #### [facility] ([facility]) [address] [place] [address] TACROLIMUS LEVELon Tacrolimus (Bld) [Mass/Vol] 6.0 ng/mL Normal 5.0-20.0 [facility] Comment on above: Result Comment: The [employer] Tacrolimus assay is a delayed one-step immunoassay for the quantitative determination of tacrolimus in human whole blood using the chemiluminescent microparticle immunoassay (CMIA) technology with flexible assay protocols, referred to as Chemiflex. Performed By: #### L [id number] #### [facility] ([facility]) [address] [place] [address] TESTOSTERONE, FREE AND TOTAL , AND SHBGon 05-19-2023 SEX HORMONE BINDING GLOBULIN (NMOL/L) IN SER/PLAS 61 nmol/L Normal 11-80 [facility] Comment on above: Performed By: #### L [id number] #### [facility] [employer] [facility] [address] [place] [address] TESTOSTERONE (NG/DL) IN SER/PLAS 440 ng/dL Normal 220-1000 [facility] Comment on above: Performed By: #### L [id number] #### [facility] [address] [place] [address] TESTOSTERONE FREE (NG/ML) IN SER/PLAS 59.5 pg/mL Normal 47-244 [facility] Comment on above: Result Comment: The concentration of free testosterone is derived from a mathematical expression based on the constant for the binding of testosterone to albumin and/or sex hormone binding globulin. Test Performed by [employer] [address] [place] [id number] - Released 05/19/2023 15:01 Performed By: #### L [id number] #### [facility] [address] [place] [address] URIC ACIDon 05-19-2023 Magnesium [Mass/Vol] 6.2 mg/dL Normal 4.4-7.6 [facility] Comment on above: Performed By: #### L [id number] #### [facility] ([facility]) [address] [place] [address] Documentationon 05-14-2023 Documentation [id number] Wm Suarez 1950 M Date Provider Department [...] Age at Mother Father Sister Brother Normal [facility] 30on 04-30-2023 30 Daily Case Managemen t Update Multidisciplinary rounds have been completed. Barriers to Discharge: MR for DC Home to follow up with [facility] on Friday. New Diabetic Supply Scripts have been faxed to his pharmacy in [place], [place]. Diet: Dietary Orders (From admission, onward) Start Ordered 04/29/23 171 Special Kitchen Request Once Comments: Please send a salad with ham, roque, shredded cheddar cheese and onions with persian dressing. Layered chocolate cake and a diet cristiano vincenzo. 04/29/23 1714 04/28/23 185 Regular Diet HF/Cirrhosis/CKD/ESRD (2gm NA); Diabetic Male (carb 60g/meal) Diet effective now Question Answer Comment Room Service? Yes Sodium restriction: HF/Cirrhosis/CKD/ESRD (2gm NA) Carbohydrate restriction: Diabetic Male (carb 60g/meal) 04/28/231857 Physician Expected Discharge Date: 04/30/2023 Discharge Delays: [...] Answer: New diagnosis DM2 04/30/23 1109 Normal [facility] 30 Problem: Pain - Adul t Goal: [...] and maintained or improved Outcome: Progressing Normal [facility] BASIC METABOLIC PANELon 12-2 Anion gap [Moles/Vol] 12 mmol/L Normal 7-20 [facility] Comment on above: Performed By: #### L [id number] #### [facility] ([facility]) [address] [place] [address] Calcium [Mass/Vol] 8.7 mg/dL Normal 8.6-10.3 [facility] Comment on above: Performed By: #### L [id number] #### [facility] ([facility]) [address] [place] [address] Chloride [Moles/Vol] 102 mmol/L Normal 98-107 [facility] Comment on above: Performed By: #### L [id number] #### [facility] ([facility]) [address] [place] [address] CO2 [Moles/Vol] 24 mmol/L Normal 21-31 [facility] Comment on above: Performed By: #### L [id number] #### [facility] ([facility]) [address] [place] [address] Creatinine [Mass/Vol] 0.80 mg/dL Normal 0.70-1.30 [facility] Comment on above: Performed By: #### L [id number] #### [facility] ([facility]) [address] [place] [address] GLOMERULAR FILTRATION RATE ML/MIN/1.73 SQ M.PREDICTED 94.6 mL/min/1.73m*2 Normal >60.0 [facility] Comment on above: Result Comment: [facility]???s estimated glomerular filtration rate (eGFR) will no [...] individuals. Performed By: #### L [id number] #### [facility] ([facility]) [address] [place] [address] Glucose [Mass/Vol] 160 mg/dL High 70-100 [facility] Comment on above: Performed By: #### L [id number] #### [facility] ([facility]) [address] [place] [address] Potassium [Moles/Vol] 4.2 mmol/L Normal 3.5-5.1 [facility] Comment on above: Performed By: #### L [id number] #### [facility] ([facility]) [address] [place] [address] Sodium [Moles/Vol] 134 mmol/L Low 136-145 [facility] Comment on above: Performed By: #### L [id number] #### [facility] ([facility]) [address] [place] [address] Urea nitrogen [Mass/Vol] 14 mg/dL Normal 7-25 [facility] Comment on above: Performed By: #### L [id number] #### [facility] ([facility]) [address] [place] [address] UREA NITROGEN/CREATININE (MASS RATIO) IN SER/PLAS 17.5 Normal [facility] Comment on above: Performed By: #### L [id number] #### [facility] ([facility]) [address] [place] [address] CBCon 04-30-2023 Erythrocyte distribution width (RBC) [Ratio] 13.0 % Normal 11.5-15.0 [facility] Comment on above: Performed By: #### L [id number] ####[facility] ([facility])[address] [place] [address] ERYTHROCYTE MEAN CORPUSCULAR HEMOGLOBIN CONCENTRATION (G/DL) BY AUTOMATED 33.9 g/dL Normal 32.0-35.0 [facility] Comment on above: Performed By: #### L [id number] ####[facility] ([facility])[address] [place] [address] Hematocrit (Bld) [Volume fraction] 28.0 % Low 39.0-55.0 [facility] Comment on above: Performed By: #### L [id number] ####[facility] ([facility])[address] [place] [address] Hemoglobin (Bld) [Mass/Vol] 9.5 g/dL Low 13.0-17.0 [facility] Comment on above: Performed By: #### L [id number] ####[facility] ([facility])[address] [place] [address] MCH (RBC) [Entitic mass] 29.3 pg Normal 27.0-33.0 [facility] Comment on above: Performed By: #### L [id number] ####[facility] ([facility])[address] [place] [address] MCV (RBC) [Entitic vol] 86.4 fL Normal 82.0-98.0 [facility] Comment on above: Performed By: #### L [id number] ####[facility] ([facility])[address] [place] [address] PLATELETS (10*3/UL) IN BLOOD AUTOMATED COUNT 232 10*3/uL Normal 150-400 [facility] Comment on above: Performed By: #### L [id number] ####[facility] ([facility])[address] [place] [address] RBC (Bld) [#/Vol] 3.24 10*6/uL Low 4.20-5.70 [facility] Comment on above: Performed By: #### L [id number] ####[facility] ([facility])[address] [place] [address] WBC (Bld) [#/Vol] 5.11 10*3/uL Normal 4.00-10.60 [facility] Comment on above: Performed By: #### L [id number] ####[facility] ([facility])[address] [place] [address] MAGNESIUMon 04-30-2023 Magnesium [Mass/Vol] 1.2 mg/dL Low 1.9-2.7 [facility] Comment on above: Performed By: #### L [id number] #### [facility] ([facility]) [address] [place] [address] PHOSPHORUSon 04-30-2023 Magnesium [Mass/Vol] 3.3 mg/dL Normal 2.5-5.0 [facility] Comment on above: Performed By: #### L [id number] #### [facility] ([facility]) [address] [place] [address] POCT GLUCOSE METER UNSOLICIT ED RESULTSon 04-30-2023 Glucose [Mass/Vol] 251 mg/dL High 70-105 [facility] Comment on above: Order Comment: Waive d Testing in the ED is performed under the ED CLIA certificate #[id number]. Result Comment: [email or web address] [email or web address] Performed By: #### L [id number] #### [facility] ([facility]) [address] [place] [address] Glucose [Mass/Vol] 146 mg/dL High 70-105 [facility] Comment on above: Order Comment: DRAW Q 3 MONTHS MAY, August, November, FEBRUARY Result Comment: trob [email or web address] Performed By: #### L [id number] #### [facility] ([facility]) [address] [place] [address] TACROLIMUS LEVELon Tacrolimus (Bld) [Mass/Vol] 6.1 ng/mL Normal 5.0-20.0 [facility] Comment on above: Result Comment: The [employer] Tacrolimus assay is a delayed one-step immunoassay for the quantitative determination of tacrolimus in human whole blood using the chemiluminescent microparticle immunoassay (CMIA) technology with flexible assay protocols, referred to as Chemiflex. Performed By: #### L [id number] #### [facility] ([facility]) [address] [place] [address] 30on 04-29-2023 30 Daily Case Managemen t [...] roque, shredded cheddar cheese and onions with persian dressing. Layered chocolate cake and a diet [...] Level of Consultation Consultation and Management 04/27/23 231 Normal [facility] BASIC METABOLIC PANELon - Anion gap [Moles/Vol] 13 mmol/L Normal 7-20 [facility] Comment on above: Performed By: #### L [id number] #### [facility] ([facility]) [address] [place] [address] Calcium [Mass/Vol] 8.7 mg/dL Normal 8.6-10.3 [facility] Comment on above: Performed By: #### L [id number] #### [facility] ([facility]) [address] [place] [address] Chloride [Moles/Vol] 103 mmol/L Normal 98-107 [facility] Comment on above: Performed By: #### L [id number] #### [facility] ([facility]) [address] [place] [address] CO2 [Moles/Vol] 22 mmol/L Normal 21-31 [facility] Comment on above: Performed By: #### L [id number] #### [facility] ([facility]) [address] [place] [address] Creatinine [Mass/Vol] 0.96 mg/dL Normal 0.70-1.30 [facility] Comment on above: Performed By: #### L [id number] #### [facility] ([facility]) [address] [place] [address] GLOMERULAR FILTRATION RATE ML/MIN/1.73 SQ M.PREDICTED 84.5 mL/min/1.73m*2 Normal >60.0 [facility] Comment on above: Result Comment: The [facility]???s estimated glomerular filtration rate (eGFR) will no [...] group of individuals. Performed By: #### L [id number] #### [facility] ([facility]) [address] [place] [address] Glucose [Mass/Vol] 175 mg/dL High 70-100 [facility] Comment on above: Performed By: #### L [id number] #### [facility] ([facility]) [address] [place] [address] Potassium [Moles/Vol] 4.5 mmol/L Normal 3.5-5.1 [facility] Comment on above: Performed By: #### L [id number] #### [facility] ([facility]) [address] [place] [address] Sodium [Moles/Vol] 133 mmol/L Low 136-145 [facility] Comment on above: Performed By: #### L [id number] #### [facility] ([facility]) [address] [place] [address] Urea nitrogen [Mass/Vol] 29 mg/dL High 7-25 [facility] Comment on above: Performed By: #### L [id number] #### [facility] ([facility]) [address] [place] [address] UREA NITROGEN/CREATININE (MASS RATIO) IN SER/PLAS 30.2 Normal [facility] Comment on above: Performed By: #### L [id number] #### [facility] ([facility]) [address] [place] [address] Anion gap [Moles/Vol] 16 mmol/L Normal 7-20 [facility] Comment on above: Performed By: #### L [id number] #### [facility] ([facility]) [address] [place] [address] Calcium [Mass/Vol] 8.7 mg/dL Normal 8.6-10.3 [facility] Comment on above: Performed By: #### L [id number] #### [facility] ([facility]) [address] [place] [address] Chloride [Moles/Vol] 102 mmol/L Normal 98-107 [facility] Comment on above: Performed By: #### L [id number] #### [facility] ([facility]) [address] [place] [address] CO2 [Moles/Vol] 19 mmol/L Low 21-31 [facility] Comment on above: Performed By: #### L [id number] #### [facility] ([facility]) [address] [place] [address] Creatinine [Mass/Vol] 1.02 mg/dL Normal 0.70-1.30 [facility] Comment on above: Performed By: #### L [id number] #### [facility] ([facility]) [address] [place] [address] GLOMERULAR FILTRATION RATE ML/MIN/1.73 SQ M.PREDICTED 78.6 mL/min/1.73m*2 Normal >60.0 [facility] Comment on above: Result Comment: [facility]???s estimated glomerular filtration rate (eGFR) will no [...] group of individuals. Performed By: #### L [id number] #### [facility] ([facility]) [address] [place] [address] Glucose [Mass/Vol] 206 mg/dL High 70-100 [facility] Comment on above: Performed By: #### L [id number] #### [facility] ([facility]) [address] [place] [address] Potassium [Moles/Vol] 4.8 mmol/L Normal 3.5-5.1 [facility] Comment on above: Performed By: #### L [id number] #### [facility] ([facility]) [address] [place] [address] Sodium [Moles/Vol] 132 mmol/L Low 136-145 [facility] Comment on above: Performed By: #### L [id number] #### [facility] ([facility]) [address] [place] [address] Urea nitrogen [Mass/Vol] 31 mg/dL High 7-25 [facility] Comment on above: Performed By: #### L [id number] #### [facility] ([facility]) [address] [place] [address] UREA NITROGEN/CREATININE (MASS RATIO) IN SER/PLAS 30.4 Normal [facility] Comment on above: Performed By: #### L [id number] #### [facility] ([facility]) [address] [place] [address] POCT GLUCOSE METER UNSOLICIT ED RESULTSon 04-29-2023 Glucose [Mass/Vol] 151 mg/dL High 70-105 [facility] Comment on above: Order Comment: DRAW Q 3 MONTHS MAY, August, November, FEBRUARY Result Comment: dcun dic Performed By: #### L [id number] #### [facility] ([facility]) [address] [place] [address] Glucose [Mass/Vol] 166 mg/dL High 70-105 [facility] Comment on above: Order Comment: DRAW Q 3 MONTHS MAY, August, November, FEBRUARY Result Comment: lzar ate Performed By: #### L [id number] #### [facility] ([facility]) [address] [place] [address] Glucose [Mass/Vol] 147 mg/dL High 70-105 [facility] Comment on above: Order Comment: Waive d Testing in the ED is performed under the ED CLIA certificate #[id number]. Result Comment: [email or web address] Performed By: #### L [id number] #### [facility] ([facility]) [address] [place] [address] Glucose [Mass/Vol] 145 mg/dL High 70-105 [facility] Comment on above: Order Comment: DRAW Q 3 MONTHS MAY, August, November, FEBRUARY Result Comment: scam [email or web address] Performed By: #### L [id number] #### [facility] ([facility]) [address] [place] [address] TACROLIMUS LEVELon Tacrolimus (Bld) [Mass/Vol] 8.6 ng/mL Normal 5.0-20.0 [facility] Comment on above: Result Comment: The [employer] SAMPLE BEVELER Tacrolimus assay is a delayed one-step immunoassay for the quantitative determination of tacrolimus in human whole blood using the chemiluminescent microparticle immunoassay (CMIA) technology with flexible assay protocols, referred to as Chemiflex. Performed By: #### L [id number] #### [facility] ([facility]) [address] [place] [address] BASIC METABOLIC PANELon 12- Anion gap [Moles/Vol] 17 mmol/L Normal 7-20 [facility] Comment on above: Performed By: #### L [id number] #### [facility] ([facility]) [address] [place] [address] Calcium [Mass/Vol] 8.6 mg/dL Normal 8.6-10.3 [facility] Comment on above: Performed By: #### L [id number] #### [facility] ([facility]) [address] [place] [address] Chloride [Moles/Vol] 102 mmol/L Normal 98-107 [facility] Comment on above: Performed By: #### L [id number] #### [facility] ([facility]) [address] [place] [address] CO2 [Moles/Vol] 20 mmol/L Low 21-31 [facility] Comment on above: Performed By: #### L [id number] #### [facility] ([facility]) [address] [place] [address] Creatinine [Mass/Vol] 1.07 mg/dL Normal 0.70-1.30 [facility] Comment on above: Performed By: #### L [id number] #### [facility] ([facility]) [address] [place] [address] GLOMERULAR FILTRATION RATE ML/MIN/1.73 SQ M.PREDICTED 74.2 mL/min/1.73m*2 Normal >60.0 [facility] Comment on above: Result Comment: The [facility]???s estimated glomerular filtration rate (eGFR) will no [...] group of individuals. Performed By: #### L [id number] #### [facility] ([facility]) [address] [place] [address] Glucose [Mass/Vol] 144 mg/dL High 70-100 [facility] Comment on above: Performed By: #### L [id number] #### [facility] ([facility]) [address] [place] [address] Potassium [Moles/Vol] 4.7 mmol/L Normal 3.5-5.1 [facility] Comment on above: Performed By: #### L [id number] #### [facility] ([facility]) [address] [place] [address] Sodium [Moles/Vol] 134 mmol/L Low 136-145 [facility] Comment on above: Performed By: #### L [id number] #### [facility] ([facility]) [address] [place] [address] Urea nitrogen [Mass/Vol] 34 mg/dL High 7-25 [facility] Comment on above: Performed By: #### L [id number] #### [facility] ([facility]) [address] [place] [address] UREA NITROGEN/CREATININE (MASS RATIO) IN SER/PLAS 31.8 Normal [facility] Comment on above: Performed By: #### L [id number] #### [facility] ([facility]) [address] [place] [address] Anion gap [Moles/Vol] 17 mmol/L Normal 7-20 [facility] Comment on above: Performed By: #### L [id number] ####[facility] ([facility])[address] [place] [address] Calcium [Mass/Vol] 8.7 mg/dL Normal 8.6-10.3 [facility] Comment on above: Performed By: #### L [id number] ####[facility] ([facility])[address] [place] [address] Chloride [Moles/Vol] 100 mmol/L Normal 98-107 [facility] Comment on above: Performed By: #### L [id number] ####[facility] ([facility])[address] [place] [address] CO2 [Moles/Vol] 19 mmol/L Low 21-31 [facility] Comment on above: Performed By: #### L [id number] ####[facility] ([facility])[address] [place] [address] Creatinine [Mass/Vol] 1.20 mg/dL Normal 0.70-1.30 [facility] Comment on above: Performed By: #### L [id number] ####[facility] ([facility])[address] [place] [address] GLOMERULAR FILTRATION RATE ML/MIN/1.73 SQ M.PREDICTED 64.7 mL/min/1.73m*2 Normal >60.0 [facility] Comment on above: Result Comment: The [facility]???s estimated glomerular filtration rate (eGFR) will no [...] of individuals. Performed By: #### L [id number] ####[facility] ([facility])[address] [place] [address] Glucose [Mass/Vol] 237 mg/dL High 70-100 [facility] Comment on above: Performed By: #### L [id number] ####[facility] ([facility])[address] [place] [address] Potassium [Moles/Vol] 4.4 mmol/L Normal 3.5-5.1 [facility] Comment on above: Performed By: #### L [id number] ####[facility] ([facility])[address] [place] [address] Sodium [Moles/Vol] 132 mmol/L Low 136-145 [facility] Comment on above: Performed By: #### L [id number] ####[facility] ([facility])[address] [place] [address] Urea nitrogen [Mass/Vol] 40 mg/dL High 7-25 [facility] Comment on above: Performed By: #### L [id number] ####[facility] ([facility])[address] [place] [address] UREA NITROGEN/CREATININE (MASS RATIO) IN SER/PLAS 33.3 Normal [facility] Comment on above: Performed By: #### L [id number] ####[facility] ([facility])[address] [place] [address] Anion gap [Moles/Vol] 20 mmol/L Normal 7-20 [facility] Comment on above: Performed By: #### L [id number] ####[facility] ([facility])[address] [place] [address] Calcium [Mass/Vol] 8.6 mg/dL Normal 8.6-10.3 [facility] Comment on above: Performed By: #### L [id number] ####[facility] ([facility])[address] [place] [address] Chloride [Moles/Vol] 101 mmol/L Normal 98-107 [facility] Comment on above: Performed By: #### L [id number] ####[facility] ([facility])[address] [place] [address] CO2 [Moles/Vol] 14 mmol/L Invalid Interpretation Code 21-31 [facility] Comment on above: Performed By: #### L [id number] ####[facility] ([facility])[address] [place] [address] Creatinine [Mass/Vol] 1.32 mg/dL High 0.70-1.30 [facility] Comment on above: Performed By: #### L [id number] ####[facility] ([facility])[address] [place] [address] GLOMERULAR FILTRATION RATE ML/MIN/1.73 SQ M.PREDICTED 57.7 mL/min/1.73m*2 Low >60.0 [facility] Comment on above: Result Comment: The [facility]???s estimated glomerular filtration rate (eGFR) will no [...] of individuals. Performed By: #### L [id number] ####[facility] ([facility])[address] [place] [address] Glucose [Mass/Vol] 332 mg/dL High 70-100 [facility] Comment on above: Performed By: #### L [id number] ####[facility] ([facility])[address] [place] [address] Potassium [Moles/Vol] 4.6 mmol/L Normal 3.5-5.1 [facility] Comment on above: Performed By: #### L [id number] ####[facility] ([facility])[address] [place] [address] Sodium [Moles/Vol] 130 mmol/L Low 136-145 [facility] Comment on above: Performed By: #### L [id number] ####[facility] ([facility])[address] [place] [address] Urea nitrogen [Mass/Vol] 43 mg/dL High 7-25 [facility] Comment on above: Performed By: #### L [id number] ####[facility] ([facility])[address] [place] [address] UREA NITROGEN/CREATININE (MASS RATIO) IN SER/PLAS 32.6 Normal [facility] Comment on above: Performed By: #### L [id number] ####[facility] ([facility])[address] [place] [address] Anion gap [Moles/Vol] 22 mmol/L High 7-20 [facility] Comment on above: Performed By: #### L [id number] #### [facility] ([facility]) [address] [place] [address] Calcium [Mass/Vol] 8.9 mg/dL Normal 8.6-10.3 [facility] Comment on above: Performed By: #### L [id number] #### [facility] ([facility]) [address] [place] [address] Chloride [Moles/Vol] 99 mmol/L Normal 98-107 [facility] Comment on above: Performed By: #### L [id number] #### [facility] ([facility]) [address] [place] [address] CO2 [Moles/Vol] 13 mmol/L Invalid Interpretation Code [facility] Comment on above: Performed By: #### L [id number] #### [facility] ([facility]) [address] [place] [address] Creatinine [Mass/Vol] 1.33 mg/dL High 0.70-1.30 [facility] Comment on above: Performed By: #### L [id number] #### [facility] ([facility]) [address] [place] [address] GLOMERULAR FILTRATION RATE ML/MIN/1.73 SQ M.PREDICTED 57.1 mL/min/1.73m*2 Low >60.0 [facility] Comment on above: Result Comment: The [facility]???s estimated glomerular filtration rate (eGFR) will no [...] individuals. Performed By: #### L [id number] #### [facility] ([facility]) [address] [place] [address] Glucose [Mass/Vol] 324 mg/dL High 70-100 [facility] Comment on above: Performed By: #### L [id number] #### [facility] ([facility]) [address] [place] [address] Potassium [Moles/Vol] 5.7 mmol/L High 3.5-5.1 [facility] Comment on above: Performed By: #### L [id number] #### [facility] ([facility]) [address] [place] [address] Sodium [Moles/Vol] 128 mmol/L Low 136-145 [facility] Comment on above: Performed By: #### L [id number] #### [facility] ([facility]) [address] [place] [address] Urea nitrogen [Mass/Vol] 45 mg/dL High 7-25 [facility] Comment on above: Performed By: #### L [id number] #### [facility] ([facility]) [address] [place] [address] UREA NITROGEN/CREATININE (MASS RATIO) IN SER/PLAS 33.8 Normal [facility] Comment on above: Performed By: #### L [id number] #### [facility] ([facility]) [address] [place] [address] Anion gap [Moles/Vol] 23 mmol/L High 7-20 [facility] Comment on above: Performed By: #### L [id number] ####[facility] ([facility])[address] [place] [address] Calcium [Mass/Vol] 8.8 mg/dL Normal 8.6-10.3 [facility] Comment on above: Performed By: #### L [id number] ####[facility] ([facility])[address] [place] [address] Chloride [Moles/Vol] 99 mmol/L Normal 98-107 [facility] Comment on above: Performed By: #### L [id number] ####[facility] ([facility])[address] [place] [address] CO2 [Moles/Vol] 13 mmol/L Invalid Interpretation Code [facility] Comment on above: Performed By: #### L [id number] ####[facility] ([facility])[address] [place] [address] Creatinine [Mass/Vol] 1.31 mg/dL High 0.70-1.30 [facility] Comment on above: Performed By: #### L [id number] ####[facility] ([facility])[address] [place] [address] GLOMERULAR FILTRATION RATE ML/MIN/1.73 SQ M.PREDICTED 58.2 mL/min/1.73m*2 Low >60.0 [facility] Comment on above: Result Comment: The [facility]???s estimated glomerular filtration rate (eGFR) will no [...] of individuals. Performed By: #### L [id number] ####[facility] ([facility])[address] [place] [address] Glucose [Mass/Vol] 264 mg/dL High 70-100 [facility] Comment on above: Performed By: #### L [id number] ####[facility] ([facility])[address] [place] [address] Potassium [Moles/Vol] 5.7 mmol/L High 3.5-5.1 [facility] Comment on above: Performed By: #### L [id number] ####[facility] ([facility])[address] [place] [address] Sodium [Moles/Vol] 129 mmol/L Low 136-145 [facility] Comment on above: Performed By: #### L [id number] ####[facility] ([facility])[address] [place] [address] Urea nitrogen [Mass/Vol] 44 mg/dL High 7-25 [facility] Comment on above: Performed By: #### L [id number] ####[facility] ([facility])[address] [place] [address] UREA NITROGEN/CREATININE (MASS RATIO) IN SER/PLAS 33.6 Normal [facility] Comment on above: Performed By: #### L [id number] ####[facility] ([facility])[address] [place] [address] BETA HYDROXYBUTYRATEon 04-28 BETA HYDROXYBUTYRATE (MMOL/L) IN SER/PLAS 6.22 mmol/L High 0.02-0.27 [facility] Comment on above: Performed By: #### L [id number] #### [facility] ([facility] [address] [place] [address] BLOOD CULTUREon 04-28-2023 Bacteria identified Cx Nom (Bld) No growth at 5 days [facility] Comment on above: Performed By: #### L [id number] ####[facility] ([facility])[address] [place] [address] Bacteria identified Cx Nom (Bld) No growth at 5 days [facility] Comment on above: Order Comment: From a different site than #1. Performed By: #### L [id number] #### [facility] ([facility]) [address] [place] [address] CMV DNA, QUALITATIVE, PCRon 04-28-2023 CYTOMEGALOVIRUS QUAL. PCR Not detected [facility] Comment on above: Result Comment: NOT DETECTED - A negative result does not rule out the presence of PCR inhibitors in the patient specimen or assay specific nucleic acid in concentrations below the level of detection by the assay. INTERPRETIVE INFORMATION: Cytomegalovirus Detection by PCR This test was developed and its performance characteristics determined by [facility]. It has not been cleared or approved by the [place] Food and Drug Administration. This test was performed in a CLIA certified laboratory and is intended for clinical purposes. Performed By: [facility] [address] [place] [id number] [employer] Operator: René Wick MD, PhD CLIA Number: [id number] Performed By: #### L [id number] #### [facility] ([facility]) [address] [place] [address] CYTOMEGALOVIRUS SOURCE Blood Normal [facility] Comment on above: Performed By: #### L [id number] #### [facility] ([facility]) [address] [place] [address] CONSULTon 04-28-2023 CONSULT - Attestation signed by [...] Patient : Wm Suarez; 72 y.o. Location: [id number] Attending: Esther Garduno MD Admit Date: 04/27/2023 Hospital Day: 1 Reason for Consult: ESRD s/p renal transplant with [facility]ID. History of Present Illness: HPI: Wm Suarez is a 72 y.o. male with PMHx ESRD d/t PKD s/p renal transplant 2019, HTN, HLD, CAD, PVD, COPD, pulmonary hypertension, HFrEF (EF 45%) and NIDDM2. Patient admitted on 04/27/2023 as a transfer from outside hospital in [place] for concerns of possible DKA, hyponatremia, and [...] nursing note reviewed. Exam conducted with a occupational work experience teacher present (Dr. Pan). Constitutional: General: He is [...] No ed (more content not included)... Normal [facility] HEMOGLOBIN A1Con 04-28-2023 Glucose [Mass/Vol] 372 mg/dL Normal [facility] Comment on above: Order Comment: NO VA RIANT Performed By: #### L [id number] ####[facility] ([facility])[address] [place] [address] HbA1c (Bld) [Mass fraction] 14.6 % High 4.0-6.0 [facility] Comment on above: Order Comment: NO VA RIANT Performed By: #### L [id number] ####[facility] ([facility])[address] [place] [address] NURSNOTEon 04-28-[address] Nguyen ( nephrology) regarding placing powerglide if pt a candidate, ok with placement on right arm. Normal [facility] OSMOLALITYon 04-28-2023 OSMOLALITY MEASURED 310 mOsm/kg High 275-295 [facility] Comment on above: Result Comment: Test Performed by [facility] [address] [place] [address] - Released 04/28/2023 22:42 Performed By: #### L [id number] #### [facility] ([facility]) [address] [place] [address] OSMOLALITY, URINEon 04-28-20 23 OSMOLALITY, URINE 446 mOsm/kg Normal 80-1300 [facility] Comment on above: Result Comment: Test Performed by [facility] [address] [place] [address] - Released 04/29/2023 03:35 Performed By: #### L [id number] #### [facility] [address] [place] [address] POCT GLUCOSE METER UNSOLICIT ED RESULTSon 04-28-2023 Glucose [Mass/Vol] 141 mg/dL High 70-105 [facility] Comment on above: Order Comment: DRAW Q 3 MONTHS MAY, August, November, FEBRUARY Result Comment: ladarius benoit Performed By: #### L [id number] #### [facility] ([facility]) [address] [place] [address] Glucose [Mass/Vol] 99 mg/dL Normal 70-105 [facility] Comment on above: Order Comment: Waive d Testing in the ED is performed under the ED CLIA certificate #[id number]. Result Comment: besc obe Performed By: #### L [id number] #### [facility] [employer] [facility] [address] [place] [address] Glucose [Mass/Vol] 115 mg/dL High 70-105 [facility] Comment on above: Order Comment: Waive d Testing in the ED is performed under the ED CLIA certificate #[id number]. Result Comment: besc obe Performed By: #### L [id number] #### [facility] ([facility]) [address] [place] [address] Glucose [Mass/Vol] 145 mg/dL High 70-105 [facility] Comment on above: Order Comment: Waive d Testing in the ED is performed under the ED CLIA certificate #[id number]. Result Comment: wwar rad Performed By: #### L [id number] #### [facility] [employer] [facility] [address] [place] [address] Glucose [Mass/Vol] 165 mg/dL High 70-105 [facility] Comment on above: Order Comment: Waive d Testing in the ED is performed under the ED CLIA certificate #[id number]. Result Comment: besc obe Performed By: #### L [id number] #### [facility] ([facility]) [address] [place] [address] Glucose [Mass/Vol] 203 mg/dL High 70-105 [facility] Comment on above: Order Comment: Waive d Testing in the ED is performed under the ED CLIA certificate #[id number]. Result Comment: [email or web address] Performed By: #### L [id number] #### [facility] ([facility]) [address] [place] [address] Glucose [Mass/Vol] 247 mg/dL High 70-105 [facility] Comment on above: Order Comment: Waive d Testing in the ED is performed under the ED CLIA certificate #[id number]. Result Comment: wwar rad Performed By: #### L [id number] #### [facility] ([facility]) [address] [place] [address] Glucose [Mass/Vol] 315 mg/dL High 70-105 [facility] Comment on above: Order Comment: Waive d Testing in the ED is performed under the ED CLIA certificate #[id number]. Result Comment: wwar rad Performed By: #### L [id number] #### [facility] ([facility]) [address] [place] [address] Glucose [Mass/Vol] 356 mg/dL High 70-105 [facility] Comment on above: Order Comment: Waive d Testing in the ED is performed under the ED CLIA certificate #[id number]. Result Comment: abee rbo Performed By: #### L [id number] #### [facility] ([facility]) [address] [place] [address] Glucose [Mass/Vol] 312 mg/dL High 70-105 [facility] Comment on above: Order Comment: Waive d Testing in the ED is performed under the ED CLIA certificate #[id number]. Result Comment: wwar rad Performed By: #### L [id number] #### [facility] ([facility]) [address] [place] [address] PTH, INTACTon 04-28-2023 PARATHYRIN INTACT (PG/ML) IN SER/PLAS 48 pg/mL Normal 12-88 [facility] Comment on above: Performed By: #### L [id number] #### [facility] [address] [place] [address] TACROLIMUS LEVELon Tacrolimus (Bld) [Mass/Vol] 11.6 ng/mL Normal 5.0-20.0 [facility] Comment on above: Result Comment: The [employer] Tacrolimus assay is a delayed one-step immunoassay for the quantitative determination of tacrolimus in human whole blood using the chemiluminescent microparticle immunoassay (CMIA) technology with flexible assay protocols, referred to as Chemiflex. Performed By: #### L [id number] #### [facility] [address] [place] [address] TROPONIN Ion 04-28-2023 Troponin I.cardiac [Mass/Vol] 0.02 ng/mL Normal 0.00-0.04 [facility] Comment on above: Performed By: #### L [id number] ####[facility] ([facility] [place] [address] Troponin I.cardiac [Mass/Vol] 0.02 ng/mL Normal 0.00-0.04 [facility] Comment on above: Performed By: #### L [id number] ####[facility] ([facility])[address] [place] [address] APTTon 04-27-2023 ACTIVATED PARTIAL THROMBOPLASTIN TIME IN PPP BY COAGULATION ASSAY 26.1 Seconds Normal 25.0-35.0 [facility] Comment on above: Result Comment: Clin ical significance of the APTT is questionable in the presence of heparin. Performed By: #### L [id number] #### [facility] [address] [place] [address] B-TYPE NATRIURETIC PEPTIDEon 04-27-2023 Natriuretic peptide B (Bld) [Mass/Vol] 98 pg/mL Normal 0-100 [facility] Comment on above: Performed By: #### L [id number] ####[facility] ([facility])[address] [place] [address] BASIC METABOLIC PANELon 04-11 Anion gap [Moles/Vol] 15 mmol/L Normal 7-20 [facility] Comment on above: Performed By: #### L [id number] ####[facility] ([facility] [place] [address] Performed By: #### L [id number] #### [facility] [address] [place] [address] Calcium [Mass/Vol] 8.6 mg/dL Normal 8.6-10.3 [facility] Comment on above: Performed By: #### L [id number] ####[facility] ([facility] [place] [address] Performed By: #### L [id number] #### [facility] [address] [place] [address] Chloride [Moles/Vol] 101 mmol/L Normal 98-107 [facility] Comment on above: Performed By: #### L [id number] ####[facility] ([facility] [place] [address] Performed By: #### L [id number] #### [facility] [address] [place] [address] CO2 [Moles/Vol] 18 mmol/L Low 21-31 [facility] Comment on above: Performed By: #### L [id number] ####[facility] ([facility] [place] [address] Performed By: #### L [id number] #### [facility] [address] [place] [address] Creatinine [Mass/Vol] 1.36 mg/dL High 0.70-1.30 [facility] Comment on above: Performed By: #### L [id number] ####[facility] ([facility] [place] [address] Performed By: #### L [id number] #### [facility] [address] [place] [address] GLOMERULAR FILTRATION RATE ML/MIN/1.73 SQ M.PREDICTED 55.6 mL/min/1.73m*2 Low >60.0 [facility] Comment on above: Result Comment: The [facility]???s estimated glomerular filtration rate (eGFR) will no [...] of individuals. Performed By: #### L [id number] ####[facility] ([facility])[address] [place] [address] Performed By: #### L [id number] #### [facility] [address] [place] [address] Glucose [Mass/Vol] 149 mg/dL High 70-100 [facility] Comment on above: Performed By: #### L [id number] ####[facility] ([facility])[address] [place] [address] Performed By: #### L [id number] #### [facility] [address] [place] [address] Potassium [Moles/Vol] 4.8 mmol/L Normal 3.5-5.1 [facility] Comment on above: Performed By: #### L [id number] ####[facility] ([facility])[address] [facility] [address] Performed By: #### L [id number] #### [facility] [address] [place] [address] Sodium [Moles/Vol] 129 mmol/L Low 136-145 [facility] Comment on above: Performed By: #### L [id number] ####[facility] ([facility])[address] [facility] [place] [address] Performed By: #### L [id number] #### [facility] [address] [place] [address] Urea nitrogen [Mass/Vol] 45 mg/dL High 7-25 [facility] Comment on above: Performed By: #### L [id number] ####[facility] ([facility])[address] [place] [address] Performed By: #### L [id number] #### [facility] [address] [place] [address] UREA NITROGEN/CREATININE (MASS RATIO) IN SER/PLAS 33.1 Normal [facility] Comment on above: Performed By: #### L [id number] ####[facility] ([facility])[address] [place] [address] Performed By: #### L [id number] #### [facility] [address] [place] [address] BLOOD CULTUREon 04-27-2023 Bacteria identified Cx Nom (Bld) No growth at 5 days Normal [facility] Comment on above: Order Comment: From a different site than #1. Performed By: #### L [id number] #### [facility] ([facility]) [address] [place] [address] CBC WITH AUTO DIFFERENTIALon 04-27-2023 Basophils (Bld) [#/Vol] 0.04 10*3/uL Normal 0.00-0.20 [facility] Comment on above: Performed By: #### L [id number] #### [facility] ([facility]) [address] [place] [address] Basophils/100 WBC (Bld) 0.4 % Normal 0.0-1.0 [facility] Comment on above: Performed By: #### L [id number] #### [facility] ([facility]) [address] [place] [address] Eosinophils (Bld) [#/Vol] 0.09 10*3/uL Normal 0.00-0.50 [facility] Comment on above: Performed By: #### L [id number] #### [facility] ([facility]) [address] [place] [address] Eosinophils/100 WBC (Bld) 1.0 % Normal 0.0-6.0 [facility] Comment on above: Performed By: #### L [id number] #### [facility] (BE[facility]) [address] [place] [address] Erythrocyte distribution width (RBC) [Ratio] 13.1 % Normal 11.5-15.0 [facility] Comment on above: Performed By: #### L [id number] #### [facility] ([facility]) [address] [place] [address] ERYTHROCYTE MEAN CORPUSCULAR HEMOGLOBIN CONCENTRATION (G/DL) BY AUTOMATED 33.9 g/dL Normal 32.0-35.0 [facility] Comment on above: Performed By: #### L [id number] #### [facility] ([facility]) [address] [place] [address] Hematocrit (Bld) [Volume fraction] 32.7 % Low 39.0-55.0 [facility] Comment on above: Performed By: #### L [id number] #### [facility] ([facility]) [address] [place] [address] Hemoglobin (Bld) [Mass/Vol] 11.1 g/dL Low 13.0-17.0 [facility] Comment on above: Performed By: #### L [id number] #### [facility] ([facility]) [address] [place] [address] Immature granulocytes (Bld) [#/Vol] 0.15 10*3/uL Normal 0.00-0.20 [facility] Comment on above: Performed By: #### L [id number] #### [facility] ([facility]) [address] [place] [address] Immature granulocytes/100 WBC (Bld) 1.6 % High 0.0-1.0 [facility] Comment on above: Performed By: #### L [id number] #### [facility] ([facility]) [address] [place] [address] Lymphocytes (Bld) [#/Vol] 1.04 10*3/uL Low 1.20-4.00 [facility] Comment on above: Performed By: #### L [id number] #### [facility] ([facility]) [address] [place] [address] Lymphocytes/100 WBC (Bld) 11.3 % Low 20.0-45.0 [facility] Comment on above: Performed By: #### L [id number] #### [facility] ([facility]) [address] [place] [address] MCH (RBC) [Entitic mass] 29.3 pg Normal 27.0-33.0 [facility] Comment on above: Performed By: #### L [id number] #### [facility] ([facility]) [address] [place] [address] MCV (RBC) [Entitic vol] 86.3 fL Normal 82.0-98.0 [facility] Comment on above: Performed By: #### L [id number] #### [facility] ([facility]) [address] [place] [address] Monocytes (Bld) [#/Vol] 0.96 10*3/uL Normal 0.10-1.00 [facility] Comment on above: Performed By: #### L [id number] #### [facility] ([facility]) [address] [place] [address] Monocytes/100 WBC (Bld) 10.5 % Normal 5.0-12.0 [facility] Comment on above: Performed By: #### L [id number] #### [facility] ([facility]) [address] [place] [address] Neutrophils (Bld) [#/Vol] 6.90 10*3/uL Normal 1.60-7.60 [facility] Comment on above: Performed By: #### L [id number] #### [facility] ([facility]) [address] [place] [address] Neutrophils/100 WBC (Bld) 75.2 % High 40.0-72.0 [facility] Comment on above: Performed By: #### L [id number] #### [facility] ([facility]) [address] [place] [address] NRBC (PER 100 WBCS) BY AUTOMATED COUNT 0.0 % Normal 0 [facility] Comment on above: Performed By: #### L [id number] #### [facility] ([facility]) [address] [place] [address] PLATELETS (10*3/UL) IN BLOOD AUTOMATED COUNT 301 10*3/uL Normal 150-400 [facility] Comment on above: Performed By: #### L [id number] #### [facility] ([facility]) [address] [place] [address] RBC (Bld) [#/Vol] 3.79 10*6/uL Low 4.20-5.70 [facility] Comment on above: Performed By: #### L [id number] #### [facility] ([facility]) [address] [place] [address] WBC (Bld) [#/Vol] 9.18 10*3/uL Normal 4.00-10.60 [facility] Comment on above: Performed By: #### L [id number] #### [facility] ([facility]) [address] [place] [address] COMPREHENSIVE METABOLIC PANE Claudio 04-27-2023 Albumin [Mass/Vol] 3.8 g/dL Normal 3.5-5.7 [facility] Comment on above: Performed By: #### L [id number] #### [facility] [address] [place] [address] ALP [Catalytic activity/Vol] 100 U/L Normal 34-104 [facility] Comment on above: Performed By: #### L [id number] #### [facility] [address] [place] [address] ALT [Catalytic activity/Vol] 12 U/L Normal 7-52 [facility] Comment on above: Performed By: #### L [id number] #### [facility] [address] [place] [address] AST [Catalytic activity/Vol] 12 U/L Low 13-39 [facility] Comment on above: Performed By: #### L [id number] #### [facility] [address] [place] [address] Bilirubin [Mass/Vol] 0.4 mg/dL Normal 0.3-1.0 [facility] Comment on above: Performed By: #### L [id number] #### [facility] [address] [place] [address] Protein [Mass/Vol] 6.0 g/dL Normal 6.0-8.3 [facility] Comment on above: Performed By: #### L [id number] #### [facility] [address] [place] [address] CREATININE, URINE, RANDOMon 04-27-2023 Creatinine (U) [Mass/Vol] 100.0 mg/dL Normal 26-299 [facility] Comment on above: Performed By: #### L [id number] #### [facility] ([facility] [address] [place] [address] LACTIC ACID WITH 4 HOUR REFL EXon 04-27-2023 LACTATE (MMOL/L) IN SER/PLAS 0.8 mmol/L Normal 0.5-2.2 [facility] Comment on above: Performed By: #### L [id number] #### [facility] ([facility]) [address] [place] [address] MAGNESIUMon 04-27-2023 Magnesium [Mass/Vol] 1.7 mg/dL Low 1.9-2.7 [facility] Comment on above: Performed By: #### L [id number] ####[facility] ([facility])[address] [place] [address] PHOSPHORUSon 04-27-2023 Magnesium [Mass/Vol] 3.7 mg/dL Normal 2.5-5.0 [facility] Comment on above: Performed By: #### L [id number] ####[facility] ([facility])[address] [place] [address] POCT GLUCOSE METER UNSOLICIT ED RESULTSon 04-27-2023 Glucose [Mass/Vol] 139 mg/dL High 70-105 [facility] Comment on above: Order Comment: Waive d Testing in the ED is performed under the ED CLIA certificate #[id number]. Result Comment: raza brenner Performed By: #### L [id number] #### [facility] [address] [place] [address] PROTEIN, URINE, RANDOMon Protein (U) [Mass/Vol] 47.2 mg/dL Normal [facility] Comment on above: Result Comment: Ther e are no established reference values for random urine specimens. Performed By: #### L [id number] ####[facility] ([facility]ER)[address] [place] [address] PROTIME-INRon 04-27-2023 INR IN PPP BY COAGULATION ASSAY 1.13 High 0.90-1.10 [facility] Comment on above: Result Comment: ACCC P [...] RANGE. CHEST 1995;108:[id number]. Performed By: #### L [id number] #### [facility] [address] [place] [address] PROTHROMBIN TIME (PT) IN PPP BY COAGULATION ASSAY 14.5 Seconds Normal 12.3-14.8 [facility] Comment on above: Performed By: #### L [id number] #### [facility] [address] [place] [address] SODIUM, URINE, RANDOMon 04-11 Sodium (U) [Moles/Vol] 35 mmol/L Normal [facility] Comment on above: Performed By: #### L [id number] ####[facility] (BE[facility]ER)[address] [place] [address] TROPONIN Ion 04-27-2023 Troponin I.cardiac [Mass/Vol] 0.04 ng/mL Normal 0.00-0.04 [facility] Comment on above: Performed By: #### L [id number] ####[facility] ([facility])[address] [place] [address] URINALYSIS MICROSCOPIC WITH REFLEX CULTUREon 04-27-2023 CASTS IN URINE Normal [facility] Comment on above: Performed By: #### L [id number] #### [facility] ([facility]) [address] [place] [address] CRYSTALS IN URINE Normal [facility] Comment on above: Performed By: #### L [id number] #### [facility] ([facility]) [address] [place] [address] OTHER MICROSCOPIC ELEMENTS Normal [facility] Comment on above: Performed By: #### L [id number] #### [facility] ([facility]) [address] [place] [address] RBC (#/HPF) IN URINE SEDIMENT 21-50 Abnormal None Seen [facility] Comment on above: Performed By: #### L [id number] #### [facility] ([facility]) [address] [place] [address] SQUAMOUS EPITHELIAL CELLS (#/HPF) IN URINE SEDIMENT Occasional Normal None Seen, Occasional [facility] Comment on above: Performed By: #### L [id number] #### [facility] ([facility]) [address] [place] [address] WBC (LEUKOCYTE) (#/HPF) IN URINE SEDIMENT 6-10 Abnormal None Seen [facility] Comment on above: Performed By: #### L [id number] #### [facility] ([facility] [address] [place] [address] URINALYSIS WITH REFLEX CULTU REon 04-27-2023 BILIRUBIN, TOTAL PRESENCE IN URINE Negative Normal Negative [facility] Comment on above: Performed By: #### L [id number] ####[facility] ([facility])[address] [place] [address] Clarity (U) Clear Normal Clear [facility] Comment on above: Performed By: #### L [id number] ####[facility] ([facility])[address] [place] [address] Color (U) Yellow Normal Yellow [facility] Comment on above: Performed By: #### L [id number] ####[facility] ([facility])[address] [place] [address] Glucose (U) [Mass/Vol] Negative Normal Negative [facility] Comment on above: Performed By: #### L [id number] ####[facility] ([facility])[address] [place] [address] HEMOGLOBIN PRESENCE IN URINE Moderate Abnormal Negative [facility] Comment on above: Performed By: #### L [id number] ####[facility] ([facility])[address] [place] [address] Ketones Ql (U) 20 mg/dL Abnormal Negative [facility] Comment on above: Performed By: #### L [id number] ####[facility] ([facility])[address] [place] [address] LEUKOCYTE ESTERASE PRESENCE IN URINE BY TEST STRIP Trace Abnormal Negative [facility] Comment on above: Performed By: #### L [id number] ####[facility] ([facility])[address] [place] [address] NITRITE PRESENCE IN URINE Negative Normal Negative [facility] Comment on above: Performed By: #### L [id number] ####[facility] ([facility])[address] [place] [address] pH (U) 5.0 [pH] Normal 5.0-8.0 [facility] Comment on above: Performed By: #### L [id number] ####[facility] (BE[facility]ER)[address] [place] [address] Protein (U) [Mass/Vol] 30 mg/dL Abnormal Negative [facility] Comment on above: Performed By: #### L [id number] ####[facility] (BE[facility]ER)[address] [place] [address] Specific gravity (U) [Rel density] 1.015 Normal 1.015-1.020 [facility] Comment on above: Performed By: #### L [id number] ####[facility] ([facility])[address] [place] [address] Office Visiton 04-22-2023 Follow-up visit [id number] Wm Suarez 1950 M Date Provider Department Center 04/22/2023 Roly-BENJA [facility]CG[facility] Family History Problem Relation Age of Onset Diabetes Mother Hypertension Mother Coronary artery disease Mother Other Mother Cystic kidney disease Mother Hypertension Father Skin cancer Father Cystic kidney disease Father Cystic kidney disease Sister Heart disease Brother ALS Brother Cystic kidney disease Brother Family Status - Relation Status Age at Mother Father Sister Brother Level of Service:09185 FL OFFICE/OUTPATIENT ESTABLISHED LOW MDM 20-29 MIN Normal [facility] Documentationon 04-07-2023 Documentation [id number] Wm Suarez 1950 M Date Provider Department Center 04/07/2023 [facility] TXP None Family History Problem Relation Age of Onset Diabetes Mother Hypertension Mother Coronary artery disease Mother Other Mother Cystic kidney disease Mother Hypertension Father Skin cancer Father Cystic kidney disease Father Cystic kidney disease Sister Heart disease Brother ALS Brother Cystic kidney disease Brother Family Status - Relation Status Age at Mother Father Sister Brother Normal [facility] Orders Onlyon 04-02-2023 Orders Only [id number] Wm Suarez 1950 M Date Provider Department [...] Age at Mother Father Sister Brother Normal [facility] 29on 11-11-2022 30 Addended by: DI GALLO on: 11/11/2022 12:52 PM Modules accepted: Orders Normal [facility] BILIRUBIN, DIRECTon 11-12-19 Magnesium [Mass/Vol] 0.1 mg/dL Normal 0-0.2 [facility] Comment on above: Performed By: #### L [id number] #### [facility] ([facility]) [address] [place] [address] BK VIRUS, PLASMA, QUANTITATI VEon 11-11-2022 BK QUANTITATION Not detected Normal Not Detected [facility] Comment on above: Order Comment: DRAW Q 3 MONTHS MAY, August, November, FEBRUARY Result Comment: Meth od: BK virus was measured by quantitative polymerase chain reaction using a fluorescent hydrolysis probe targeting the polyomavirus BK LYRIC WRITER-1 gene. The lower limit of quantitation of the assay is 500 copies of BK genome per milliliter of plasma or urine, and any detectable BK DNA below that level is reported as: Detected, <500 copies/ml. Serial BK virus measurement can be used to monitor disease activity. (Reference: Katina ramirezl. J CLIN MICRO 2004; 42:9446-3543). This test was developed and its performance characteristics determined by the [facility]. It has not been approved by the [place] Food and Drug Administration. However, such approval is not required for clinical implementation, and test results have been shown to be clinically useful. This laboratory is CAP accredited and CLIA certified to perform high complexity testing. Performed By: #### L [id number] #### [facility] ([facility]) [address] [place] [address] BK QUANTITATION LOG Not detected Normal Not Detected U [facility] Comment on above: Order Comment: DRAW Q 3 MONTHS MAY, August, November, FEBRUARY Performed By: #### L [id number] #### [facility] (AKER) [address] [place] [address] CBC WITH AUTO DIFFERENTIALon 11-11-2022 Basophils (Bld) [#/Vol] 0.02 10*3/uL Normal 0.00-0.20 [facility] Comment on above: Performed By: #### L [id number] ####[facility] ([facility]ER)[address] [place] [address] Basophils/100 WBC (Bld) 0.3 % Normal 0.0-1.0 [facility] Comment on above: Performed By: #### L [id number] ####[facility] (BE[facility]ER)[address] [place] [address] Eosinophils (Bld) [#/Vol] 0.09 10*3/uL Normal 0.00-0.50 [facility] Comment on above: Performed By: #### L [id number] ####[facility] (BE[facility]ER)[address] [place] [address] Eosinophils/100 WBC (Bld) 1.5 % Normal 0.0-6.0 [facility] Comment on above: Performed By: #### L [id number] ####[facility] (BEAKER)[address] [place] [address] Erythrocyte distribution width (RBC) [Ratio] 13.2 % Normal 11.5-15.0 [facility] Comment on above: Performed By: #### L [id number] ####[facility] (BE[facility]ER)[address] [place] [address] ERYTHROCYTE MEAN CORPUSCULAR HEMOGLOBIN CONCENTRATION (G/DL) BY AUTOMATED 32.9 g/dL Normal 32.0-35.0 [facility] Comment on above: Performed By: #### L [id number] ####[facility] (BE[facility]ER)[address] [place] [address] Hematocrit (Bld) [Volume fraction] 35.9 % Low 39.0-55.0 [facility] Comment on above: Performed By: #### L [id number] ####[facility] (BEAKER)[address] [place] [address] Hemoglobin (Bld) [Mass/Vol] 11.8 g/dL Low 13.0-17.0 [facility] Comment on above: Performed By: #### L [id number] ####[facility] ([facility])[address] [place] [address] Immature granulocytes (Bld) [#/Vol] 0.07 10*3/uL Normal 0.00-0.20 [facility] Comment on above: Performed By: #### L [id number] ####[facility] ([facility])[address] [place] [address] Immature granulocytes/100 WBC (Bld) 1.2 % High 0.0-1.0 [facility] Comment on above: Performed By: #### L [id number] ####[facility] ([facility])[address] [place] [address] Lymphocytes (Bld) [#/Vol] 0.96 10*3/uL Low 1.20-4.00 [facility] Comment on above: Performed By: #### L [id number] ####[facility] ([facility])[address] [place] [address] Lymphocytes/100 WBC (Bld) 16.4 % Low 20.0-45.0 [facility] Comment on above: Performed By: #### L [id number] ####[facility] ([facility])[address] [place] [address] MCH (RBC) [Entitic mass] 28.6 pg Normal 27.0-33.0 [facility] Comment on above: Performed By: #### L [id number] ####[facility] ([facility])[address] [place] [address] MCV (RBC) [Entitic vol] 86.9 fL Normal 82.0-98.0 [facility] Comment on above: Performed By: #### L [id number] ####[facility] (BEAKER)[address] [place] [address] Monocytes (Bld) [#/Vol] 0.61 10*3/uL Normal 0.10-1.00 [facility] Comment on above: Performed By: #### L [id number] ####[facility] ([facility])[address] [place] [address] Monocytes/100 WBC (Bld) 10.4 % Normal 5.0-12.0 [facility] Comment on above: Performed By: #### L [id number] ####[facility] ([facility])[address] [place] [address] Neutrophils (Bld) [#/Vol] 4.12 10*3/uL Normal 1.60-7.60 [facility] Comment on above: Performed By: #### L [id number] ####[facility] ([facility])[address] [place] [address] Neutrophils/100 WBC (Bld) 70.2 % Normal 40.0-72.0 [facility] Comment on above: Performed By: #### L [id number] ####[facility] ([facility])[address] [place] [address] NRBC (PER 100 WBCS) BY AUTOMATED COUNT 0.0 % Normal 0 [facility] Comment on above: Performed By: #### L [id number] ####[facility] ([facility])[address] [place] [address] PLATELETS (10*3/UL) IN BLOOD AUTOMATED COUNT 232 10*3/uL Normal 150-400 [facility] Comment on above: Performed By: #### L [id number] ####[facility] ([facility])[address] [place] [address] RBC (Bld) [#/Vol] 4.13 10*6/uL Low 4.20-5.70 [facility] Comment on above: Performed By: #### L [id number] ####[facility] ([facility])[address] [place] [address] WBC (Bld) [#/Vol] 5.87 10*3/uL Normal 4.00-10.60 [facility] Comment on above: Performed By: #### L [id number] ####[facility] (BEAKER)[address] [place] [address] COMPREHENSIVE METABOLIC PANE Claudio 11-11-2022 Albumin [Mass/Vol] 4.5 g/dL Normal 3.5-5.7 [facility] Comment on above: Performed By: #### L [id number] #### [facility] ([facility]) [address] [place] [address] ALP [Catalytic activity/Vol] 131 U/L High 34-104 [facility] Comment on above: Performed By: #### L [id number] #### [facility] ([facility] [place]) [address] [place] [address] ALT [Catalytic activity/Vol] 16 U/L Normal 7-52 [facility] Comment on above: Performed By: #### L [id number] #### [facility] ([facility] [place]) [address] [place] [address] Anion gap [Moles/Vol] 14 mmol/L Normal 7-20 [facility] Comment on above: Performed By: #### L [id number] #### [facility] ([facility] [place]) [address] [place] [address] AST [Catalytic activity/Vol] 17 U/L Normal 13-39 [facility] Comment on above: Performed By: #### L [id number] #### [facility] ([facility] [address] [place] [address] Bilirubin [Mass/Vol] 0.4 mg/dL Normal 0.3-1.0 [facility] Comment on above: Performed By: #### L [id number] #### [facility] ([facility]) [address] [place] [address] Calcium [Mass/Vol] 8.0 mg/dL Low 8.6-10.3 [facility] Comment on above: Performed By: #### L [id number] #### [facility] ([facility]) [address] [place] [address] Chloride [Moles/Vol] 95 mmol/L Low 98-107 [facility] Comment on above: Performed By: #### L [id number] #### [facility] ([facility]) [address] [place] [address] CO2 [Moles/Vol] 24 mmol/L Normal 21-31 [facility] Comment on above: Performed By: #### L [id number] #### [facility] ([facility]) [address] [place] [address] Creatinine [Mass/Vol] 1.03 mg/dL Normal 0.70-1.30 [facility] Comment on above: Performed By: #### L [id number] #### [facility] ([facility]) [address] [place] [address] GLOMERULAR FILTRATION RATE ML/MIN/1.73 SQ M.PREDICTED 78.1 mL/min/1.73m*2 Normal >60.0 [facility] Comment on above: Result Comment: The [facility]???s estimated glomerular filtration rate (eGFR) will no [...] individuals. Performed By: #### L [id number] #### [facility] ([facility]) [address] [place] [address] Glucose [Mass/Vol] 202 mg/dL High 70-100 [facility] Comment on above: Performed By: #### L [id number] #### [facility] ([facility]) [address] [place] [address] Potassium [Moles/Vol] 4.6 mmol/L Normal 3.5-5.1 [facility] Comment on above: Performed By: #### L [id number] #### [facility] ([facility]) [address] [place] [address] Protein [Mass/Vol] 6.7 g/dL Normal 6.0-8.3 [facility] Comment on above: Performed By: #### L [id number] #### [facility] ([facility]) [address] [place] [address] Sodium [Moles/Vol] 128 mmol/L Low 136-145 [facility] Comment on above: Performed By: #### L [id number] #### [facility] ([facility]) [address] [place] [address] Urea nitrogen [Mass/Vol] 11 mg/dL Normal - [facility] Comment on above: Performed By: #### L [id number] #### [facility] ([facility]) [address] [place] [address] UREA NITROGEN/CREATININE (MASS RATIO) IN SER/PLAS 10.7 Normal [facility] Comment on above: Performed By: #### L [id number] #### [facility] ([facility]) [address] [place] [address] Documentationon 11-11-2022 Documentation [id number] Wm Suarez 1950 M Date Provider Department [...] Age at Mother Father Sister Brother Normal [facility] Documentation [id number] Wm Suarez 1950 M Date Provider Department Center 11/11/2022 Bhavana3-ANTOINETTE MEYER TXP None Family History Problem Relation Age of Onset Diabetes Mother Hypertension Mother Coronary artery disease Mother Other Mother Cystic kidney disease Mother Hypertension Father Skin cancer Father Cystic kidney disease Father Cystic kidney disease Sister Heart disease Brother ALS Brother Cystic kidney disease Brother Family Status - Relation Status Age at Mother Father Sister Brother Normal [facility] Follow-Upon 11-11-2022 Follow-Up [id number] Wm Suarez 1950 M Date Provider Department Center 11/11/2022 124-JERICHO ABAD None Family History Problem Relation Age of Onset Diabetes Mother Hypertension Mother Coronary artery disease Mother Other Mother Cystic kidney disease Mother Hypertension Father Skin cancer Father Cystic kidney disease Father Cystic kidney disease Sister Heart disease Brother ALS Brother Cystic kidney disease Brother Family Status - Relation Status Age at Mother Father Sister Brother Level of Service:14297 [place] OFFICE/OUTPATIENT ESTABLISHED LOW MDM 20-29 MIN Reason for Visit and Comments: Kidney Follow-up [[id number]] - 6 mo follow No concerns Normal [facility] HEMOGLOBIN A1Con 11-11-2022 Glucose [Mass/Vol] 197 mg/dL Normal [facility] Comment on above: Order Comment: DRAW Q 3 MONTHS MAY, August, November, FEBRUARY Performed By: #### L [id number] #### [facility] ([facility]) [address] [place] [address] HbA1c (Bld) [Mass fraction] 8.5 % High 4.0-6.0 [facility] Comment on above: Order Comment: DRAW Q 3 MONTHS MAY, August, November, FEBRUARY Performed By: #### L [id number] #### [facility] ([facility]) [address] [place] [address] LIPID PANELon 11-11-2022 CHOL/HDL 2.2 mg/dL Normal [facility] Comment on above: Performed By: #### L [id number] #### [facility] ([facility]) [address] [place] [address] Cholesterol [Mass/Vol] 90 mg/dL Low 120-200 [facility] Comment on above: Performed By: #### L [id number] #### [facility] ([facility]) [address] [place] [address] Magnesium [Mass/Vol] 60 mg/dL Normal 40-149 [facility] Comment on above: Result Comment: TRIG LYCERIDE REFERENCE RANGE: 20 YEARS AND OLDER CARDIOVASCULAR RISK LESS THAN 150 mg/dL LOW RISK 150 TO 199 mg/dL BORDERLINE RISK 200 mg/dL AND GREATER HIGH RISK Performed By: #### L [id number] #### [facility] ([facility]) [address] [place] [address] Magnesium [Mass/Vol] 37 mg/dL Normal 0-160 [facility] Comment on above: Performed By: #### L [id number] #### [facility] ([facility]) [address] [place] [address] Magnesium [Mass/Vol] 41 mg/dL Normal 23-92 [facility] Comment on above: Performed By: #### L [id number] #### [facility] ([facility]) [address] [place] [address] NON HDL CHOL. (LDL+VLDL) 49 Normal [facility] Comment on above: Performed By: #### L [id number] #### [facility] ([facility]) [address] [place] [address] TOTAL VLDL-C 12 mg/dL Normal 0-40 [facility] Comment on above: Performed By: #### L [id number] #### [facility] ([facility]) [address] [place] [address] Labon 11-11-2022 Lab [id number] Wm Suarez 1950 M Date Provider Department Center 11/11/202288710-PUJ DRAW STATION KXT Draw [facility] Family History Problem Relation Age of Onset Diabetes Mother Hypertension Mother Coronary artery disease Mother Other Mother Cystic kidney disease Mother Hypertension Father Skin cancer Father Cystic kidney disease Father Cystic kidney disease Sister Heart disease Brother ALS Brother Cystic kidney disease Brother Family Status - Relation Status Age at Mother Father Sister Brother Normal [facility] MAGNESIUMon 11-11-2022 Magnesium [Mass/Vol] 1.3 mg/dL Low 1.9-2.7 [facility] Comment on above: Performed By: #### L [id number] #### [facility] ([facility]) [address] [place] [address] Orders Onlyon 11-11-2022 Orders Only [id number] Carrillo 1950 M Date Provider Department Center 11/11/2022 [...] Age at Mother Father Sister Brother Normal [facility] PHOSPHORUSon 11-11-2022 Magnesium [Mass/Vol] 4.2 mg/dL Normal 2.5-5.0 [facility] Comment on above: Performed By: #### L [id number] #### [facility] ([facility]) [address] [place] [address] TACROLIMUS LEVELon Tacrolimus (Bld) [Mass/Vol] 6.2 ng/mL Normal 5.0-20.0 [facility] Comment on above: Result Comment: DRAW Q 3 MONTHS MAY, August, November, FEBRUARY Performed By: #### L [id number] #### [facility] [address] [place] [address] URIC ACIDon 11-11-2022 Magnesium [Mass/Vol] 6.0 mg/dL Normal 4.4-7.6 [facility] Comment on above: Performed By: #### L [id number] ####[facility] ([facility])[address] [place] [address] FK506 (TACROLIMUS) WHOLE BLO ODon 10-06-2022 Tacrolimus (FK506), Blood 3.8 ng/mL Normal 2.0-20.0 [facility] Comment on above: Result Comment: Trou gh (immediately following transplant) 15.0 . Trough (steady state, 2 weeks or more after transplant): 3.0 - 8.0 . Performed by LC-MS/MS technology. Performed By: #### U CLINT, CMP, LIPID, DBIL, PHOS, MG #### [facility] [address] [address] [address] Brea Causey BILIRUBIN CONJUGATED (DIRECT )on 10-03-2022 BILI, CONJUGATED 0.1 mg/dL Normal 0.0-0.2 [facility] Comment on above: Performed By: #### C BC #### [facility] [address] [place] [address] Dr. Brea Causey CBC AUTO DIFFon 10-03-2022 BASO # 0.0 103/ul Normal 0.0-0.1 [facility] Comment on above: Performed By: #### U CLINT, CMP, LIPID, DBIL, PHOS, MG #### [facility] [address] [place] [address] Dr. Brea Causey Basophils/100 WBC (Bld) 0.5 % Normal 0.2-2.0 [facility] Comment on above: Performed By: #### U CLINT, CMP, LIPID, DBIL, PHOS, MG #### [facility] [address] [place] [address] Dr. Brea Causey EO # 0.1 103/ul Normal 0.0-0.7 [facility] Comment on above: Performed By: #### U CLINT, CMP, LIPID, DBIL, PHOS, MG #### [facility] [address] [place] [address] Dr. Brea Causey Eosinophils/100 WBC (Bld) 2.3 % Normal 0.9-7.0 [facility] Comment on above: Performed By: #### U CLINT, CMP, LIPID, DBIL, PHOS, MG #### [facility] [address] [place] [address] Dr. Brea Causey Erythrocyte distribution width (RBC) [Ratio] 13.2 % Normal 11.0-15.0 [facility] Comment on above: Performed By: #### U CLINT, CMP, LIPID, DBIL, PHOS, MG #### [facility] [address] [place] [address] Dr. Brea Causey Hematocrit (Bld) [Volume fraction] 35.0 % Critically low 42.0-54.0 [facility] Comment on above: Performed By: #### U CLINT, CMP, LIPID, DBIL, PHOS, MG #### [facility] [address] [place] [address] Dr. Brea Causey Hemoglobin (Bld) [Mass/Vol] 11.7 g/dL Critically low 14.0-18.0 [facility] Comment on above: Performed By: #### U CLINT, CMP, LIPID, DBIL, PHOS, MG #### [facility] [address] [place] [address] Dr. Brea Causey IG # 0.06 10e3/ul Critically high 0.00-0.03 [facility] Comment on above: Performed By: #### U CLINT, CMP, LIPID, DBIL, PHOS, MG #### [facility] [address] [place] [address] Dr. Brea Causey IG % 1.1 % Critically high 0.0-0.5 [facility] Comment on above: Performed By: #### U CLINT, CMP, LIPID, DBIL, PHOS, MG #### [facility] [address] [place] [address] Dr. Brea Causey LYMPH # 0.8 103/ul Critically low 1.2-3.8 [facility] Comment on above: Performed By: #### U CLINT, CMP, LIPID, DBIL, PHOS, MG #### [facility] [address] [place] [address] Dr. Brea Causey Lymphocytes/100 WBC (Bld) 14.9 % Critically low 20.5-60.0 [facility] Comment on above: Performed By: #### U CLINT, CMP, LIPID, DBIL, PHOS, MG #### [facility] [address] [place] [address] Dr. Brea Causey MANUAL DIFF REQ NO Normal [facility] Comment on above: Performed By: #### U CLINT, CMP, LIPID, DBIL, PHOS, MG #### [facility] [address] [place] [address] Dr. Brea Causey MCH (RBC) [Entitic mass] 28.8 pg Normal 25.9-34.0 [facility] Comment on above: Performed By: #### U CLINT, CMP, LIPID, DBIL, PHOS, MG #### [facility] [address] [place] [address] Dr. Brea Causey MCHC (RBC) [Mass/Vol] 33.4 g/dL Normal 29.9-35.2 [facility] Comment on above: Performed By: #### U CLINT, CMP, LIPID, DBIL, PHOS, MG #### [facility] [address] [place] [address] Dr. Brea Causey MCV (RBC) [Entitic vol] 86.2 fL Normal 80.0-94.0 [facility] Comment on above: Performed By: #### U CLINT, CMP, LIPID, DBIL, PHOS, MG #### [facility] [address] [place] [address] Dr. Brea Causey MONO # 0.5 103/ul Normal 0.3-0.8 [facility] Comment on above: Performed By: #### U CLINT, CMP, LIPID, DBIL, PHOS, MG #### [facility] [address] [place] [address] Dr. Brea Causey Monocytes/100 WBC (Bld) 9.1 % Normal 1.7-12.0 [facility] Comment on above: Performed By: #### U CLINT, CMP, LIPID, DBIL, PHOS, MG #### [facility] [address] [place] [address] Dr. Brea Causey NEUT # 4.1 103/ul Normal 1.4-6.5 [facility] Comment on above: Performed By: #### U CLINT, CMP, LIPID, DBIL, PHOS, MG #### [facility] [address] [place] [address] Dr. Brea Causey Neutrophils/100 WBC (Bld) 72.1 % Normal 43.0-75.0 [facility] Comment on above: Performed By: #### U CLINT, CMP, LIPID, DBIL, PHOS, MG #### [facility] [address] [place] [address] Dr. Brea Causey Platelet mean volume (Bld) [Entitic vol] 9.0 fL Critically low 9.5-13.5 [facility] Comment on above: Performed By: #### U CLINT, CMP, LIPID, DBIL, PHOS, MG #### [facility] [address] [address] [address] Brea Causey PLT 211 103/ul Normal 150-450 [facility] Comment on above: Performed By: #### U CLINT, CMP, LIPID, DBIL, PHOS, MG #### [facility] [address] [address] [address] Brea Causey RBC 4.06 106/ul Critically low 4.70-6.10 [facility] Comment on above: Performed By: #### U CLINT, CMP, LIPID, DBIL, PHOS, MG #### [facility] [address] [address] [address] Brea Causey WBC 5.6 103/ul Normal 4.0-11.0 [facility] Comment on above: Performed By: #### U CLINT, CMP, LIPID, DBIL, PHOS, MG #### [facility] [address] [place] [address] Dr. Brea Cauesy LIPID PROFILEon 10-03-2022 CHOL-HDL RATIO NORM SEE BELOW Normal [facility] Comment on above: Result Comment: 3.3 - 4.4 LOW RISK 4.4 - 7.1 AVERAGE RISK 7.1 - 11.0 MODERATE RISK >11.0 HIGH RISK Performed By: #### C BC #### [facility] [address] [place] [address] Dr. Brea Causey Cholesterol [Mass/Vol] 93 mg/dL Normal <=200 [facility] Comment on above: Performed By: #### C BC #### [facility] [address] [place] [address] Dr. Brea Causey Cholesterol in HDL [Mass/Vol] 43 mg/dL Normal 40-60 [facility] Comment on above: Performed By: #### C BC #### [facility] [address] [place] [address] Dr. Brea Causey Cholesterol in LDL [Mass/Vol] 37.6 mg/dL Normal [facility] Comment on above: Performed By: #### C BC #### [facility] [address] [place] [address] Dr. Brea Causey Cholesterol.total/Cho lesterol in HDL [Mass ratio] 2.2 {ratio} Normal [facility] Comment on above: Performed By: #### C BC #### [facility] [address] [address] [address] Brea Causey HDL NORMAL > or = 60 mg/dl - LO W CARDIOVASCULAR RISK <40 mg/dl - HIGH CARDIOVASCULAR RISK Normal [facility] Comment on above: Performed By: #### C BC #### [facility] [address] [address] [address] Brea Causey LDL CALC NORMAL SEE BELOW Normal [facility] Comment on above: Result Comment: <100 mg/dl OPTIMAL 100 - 129 mg/dl NEAR OR ABOVE OPTIMAL 130 - 159 mg/dl BORDERLINE HIGH 160 - 189 mg/dl HIGH >190 mg/dl VERY HIGH Performed By: #### C BC #### [facility] [address] [address] [address] Brea Causey Triglyceride [Mass/Vol] 62 mg/dL Normal <=150 [facility] Comment on above: Performed By: #### C BC #### [facility] [address] [address] [address] Brea Causey VLDL CALC 12.4 mg/dL Normal [facility] Comment on above: Performed By: #### C BC #### [facility] [address] [address] [address] Brea Causey MAGNESIUMon 10-03-2022 Magnesium [Mass/Vol] 1.5 mg/dL Critically low 1.8-2.4 [facility] Comment on above: Performed By: #### C BC #### [facility] [address] [address] [address] Brea Causey PHOSPHORUSon 10-03-2022 Phosphate [Mass/Vol] 4.4 mg/dL Normal 2.6-4.7 [facility] Comment on above: Performed By: #### C BC #### [facility] [address] [address] [address] Brea Causey PROF 14(COMP METB)on 05-25-2 023 Albumin [Mass/Vol] 3.8 g/dL Normal 3.4-5.0 [facility] Comment on above: Performed By: #### C BC #### [facility] [address] [place] [address] Dr. Brea Causey Albumin/Globulin [Mass ratio] 1.1 {ratio} Normal [facility] Comment on above: Performed By: #### C BC #### [facility] [address] [place] [address] Dr. Brea Causey ALP [Catalytic activity/Vol] 190 U/L Critically high 46-116 [facility] Comment on above: Performed By: #### C BC #### [facility] [address] [place] [address] Dr. Brea Causey ALT [Catalytic activity/Vol] 26 U/L Normal 16-63 [facility] Comment on above: Performed By: #### C BC #### [facility] [address] [place] [address] Dr. Brea Causey Anion gap [Moles/Vol] 15.3 mmol/L Normal [facility] Comment on above: Performed By: #### C BC #### [facility] [address] [place] [address] Dr. Brea Causey AST [Catalytic activity/Vol] 23 U/L Normal 15-37 [facility] Comment on above: Performed By: #### C BC #### [facility] [address] [place] [address] Dr. Brea Causey Bilirubin [Mass/Vol] 0.4 mg/dL Normal 0.2-1.0 [facility] Comment on above: Performed By: #### C BC #### [facility] [address] [place] [address] Dr. Brea Causey Calcium [Mass/Vol] 7.8 mg/dL Critically low 8.5-10.1 [facility] Comment on above: Performed By: #### C BC #### [facility] [address] [place] [address] Dr. Brea Causey Chloride [Moles/Vol] 97 mmol/L Critically low 98-107 [facility] Comment on above: Performed By: #### C BC #### [facility] [address] [address] [address] Brea Causey CO2 [Moles/Vol] 25.6 mmol/L Normal 21.0-32.0 [facility] Comment on above: Performed By: #### C BC #### [facility] [address] [address] [address] Brea Causey Creatinine [Mass/Vol] 1.03 mg/dL Normal 0.70-1.30 [facility] Comment on above: Performed By: #### C BC #### [facility] [address] [address] [address] Brea Causey EGFR-AF MONTENEGRIN >60 Normal >=60 [facility] Comment on above: Performed By: #### C BC #### [facility] [address] [place] [address] Dr. Brea Causey EGFR-NON AF MONTENEGRIN >60 Normal >=60 [facility] Comment on above: Performed By: #### C BC #### [facility] [address] [place] [address] Dr. Brea Causey Globulin (S) [Mass/Vol] 3.6 g/dL Normal [facility] Comment on above: Performed By: #### C BC #### [facility] [address] [address] [address] Brea Causey Glucose [Mass/Vol] 188 mg/dL Critically high 74-106 [facility] Comment on above: Performed By: #### C BC #### [facility] [address] [place] [address] Dr. Brea Causey Potassium [Moles/Vol] 4.9 mmol/L Normal 3.5-5.1 [facility] Comment on above: Performed By: #### C BC #### [facility] [address] [place] [address] Dr. Brea Causey Protein [Mass/Vol] 7.4 g/dL Normal 6.4-8.2 [facility] Comment on above: Performed By: #### C BC #### [facility] [address] [address] [address] Brea Causey Sodium [Moles/Vol] 133 mmol/L Critically low 136-145 Th e [facility] Comment on above: Performed By: #### C BC #### [facility] [address] [place] [address] Dr. Brea Causey Urea nitrogen [Mass/Vol] 11.0 mg/dL Normal 7.0-18.0 [facility] Comment on above: Performed By: #### C BC #### [facility] [address] [place] [address] Dr. Brea Causey Urea nitrogen/Creatinine [Mass ratio] 10.7 mg/mg Normal [facility] Comment on above: Performed By: #### C BC #### [facility] [address] [place] [address] Dr. Brea Causey URIC ACID SERUMon 10-03-2022 Urate [Mass/Vol] 5.7 mg/dL Normal 3.5-7.2 [facility] Comment on above: Performed By: #### C BC #### [facility] [address] [place] [address] Dr. Brea Causey BK VIRUS PCR QUANTon 023 BKV DNA QUANT PCR PLASMA Negative Normal Negative [facility] Comment on above: Result Comment: No B K DNA detected. . The linear range of the assay is 22 - 100,000,000 IU/mL. Performed By: #### U CLINT, CMP, LIPID, DBIL, PHOS, MG #### [facility] [address] [place] [address] Dr. Brea Causey Log10 BKV DNA Plasma Normal [facility] Comment on above: Performed By: #### U CLINT, CMP, LIPID, DBIL, PHOS, MG #### [facility] [address] [place] [address] Dr. Brea Causey FK506 (TACROLIMUS) WHOLE BLO ODon 09-02-2022 Tacrolimus (FK506), Blood 3.8 ng/mL Normal 2.0-20.0 [facility] Comment on above: Result Comment: Trou gh (immediately following transplant) 15.0 . Trough (steady state, 2 weeks or more after transplant): 3.0 - 8.0 . Performed by LC-MS/MS technology. Performed By: #### U CLINT, CMP, LIPID, DBIL, PHOS, MG #### [facility] [address] [place] [address] Dr. Brea Causey TESTOSTERONE, FREE,DIRECT, T OTALon 09-01-2022 Free Testosterone(Direct) 9.7 pg/mL Normal 6.6-18.1 [facility] Comment on above: Result Comment: Perf ormed at: BN Performed By: #### U CLINT, CMP, LIPID, DBIL, PHOS, MG #### [facility] [address] [place] [address] Dr. Brea Causey Testosterone [Mass/Vol] 565 ng/dL Normal 264-916 [facility] Comment on above: Result Comment: Adul t male reference interval is based on a population of healthy nonobese males (BMI <30) between 19 and 39 years old. Steven et.al. JCEM 2017,102;[id number]. PMID: [id number]. Performed at: CB Performed By: #### U CLINT, CMP, LIPID, DBIL, PHOS, MG #### [facility] [address] [place] [address] Dr. Brea Causey BILIRUBIN CONJUGATED (DIRECT )on 08-30-2022 BILI, CONJUGATED 0.1 mg/dL Normal 0.0-0.2 [facility] Comment on above: Performed By: #### U CLINT, CMP, LIPID, DBIL, PHOS, MG #### [facility] [address] [place] [address] Dr. Brea Causey CBC AUTO DIFFon 08-30-2022 BASO # 0.0 103/ul Normal 0.0-0.1 [facility] Comment on above: Performed By: #### U CLINT, CMP, LIPID, DBIL, PHOS, MG #### [facility] [address] [place] [address] Dr. Brea Causey Basophils/100 WBC (Bld) 0.7 % Normal 0.2-2.0 [facility] Comment on above: Performed By: #### U CLINT, CMP, LIPID, DBIL, PHOS, MG #### [facility] [address] [address] [address] Brea Causey EO # 0.2 103/ul Normal 0.0-0.7 [facility] Comment on above: Performed By: #### U CLINT, CMP, LIPID, DBIL, PHOS, MG #### [facility] [address] [place] [address] Dr. Brea Causey Eosinophils/100 WBC (Bld) 3.6 % Normal 0.9-7.0 [facility] Comment on above: Performed By: #### U CLINT, CMP, LIPID, DBIL, PHOS, MG #### [facility] [address] [place] [address] Dr. Brea Causey Erythrocyte distribution width (RBC) [Ratio] 13.2 % Normal 11.0-15.0 [facility] Comment on above: Performed By: #### U CLINT, CMP, LIPID, DBIL, PHOS, MG #### [facility] [address] [place] [address] Dr. Brea Causey Hematocrit (Bld) [Volume fraction] 36.0 % Critically low 42.0-54.0 [facility] Comment on above: Performed By: #### U CLINT, CMP, LIPID, DBIL, PHOS, MG #### [facility] [address] [place] [address] Dr. Brea Causey Hemoglobin (Bld) [Mass/Vol] 12.2 g/dL Critically low 14.0-18.0 [facility] Comment on above: Performed By: #### U CLINT, CMP, LIPID, DBIL, PHOS, MG #### [facility] [address] [place] [address] Dr. Brea Causey IG # 0.07 10e3/ul Critically high 0.00-0.03 [facility] Comment on above: Performed By: #### U CLINT, CMP, LIPID, DBIL, PHOS, MG #### [facility] [address] [place] [address] Dr. Brea Causey IG % 1.2 % Critically high 0.0-0.5 [facility] Comment on above: Performed By: #### U CLINT, CMP, LIPID, DBIL, PHOS, MG #### [facility] [address] [place] [address] Dr. Brea Causey LYMPH # 0.9 103/ul Critically low 1.2-3.8 [facility] Comment on above: Performed By: #### U CLINT, CMP, LIPID, DBIL, PHOS, MG #### [facility] [address] [place] [address] Dr. Brea Causey Lymphocytes/100 WBC (Bld) 15.0 % Critically low 20.5-60.0 [facility] Comment on above: Performed By: #### U CLINT, CMP, LIPID, DBIL, PHOS, MG #### [facility] [address] [place] [address] Dr. Brea Causey MANUAL DIFF REQ NO Normal [facility] Comment on above: Performed By: #### U CLINT, CMP, LIPID, DBIL, PHOS, MG #### [facility] [address] [place] [address] Dr. Brea Causey MCH (RBC) [Entitic mass] 29.4 pg Normal 25.9-34.0 [facility] Comment on above: Performed By: #### U CLINT, CMP, LIPID, DBIL, PHOS, MG #### [facility] [address] [place] [address] Dr. Brea Causey MCHC (RBC) [Mass/Vol] 33.9 g/dL Normal 29.9-35.2 [facility] Comment on above: Performed By: #### U CLINT, CMP, LIPID, DBIL, PHOS, MG #### [facility] [address] [place] [address] Dr. Brea Causey MCV (RBC) [Entitic vol] 86.7 fL Normal 80.0-94.0 [facility] Comment on above: Performed By: #### U CLINT, CMP, LIPID, DBIL, PHOS, MG #### [facility] [address] [place], [place] [id number] Dr. Brea Causey MONO # 0.5 103/ul Normal 0.3-0.8 [facility] Comment on above: Performed By: #### U CLINT, CMP, LIPID, DBIL, PHOS, MG #### [facility] [address] [place] [address] Dr. Brea Causey Monocytes/100 WBC (Bld) 9.0 % Normal 1.7-12.0 [facility] Comment on above: Performed By: #### U CLINT, CMP, LIPID, DBIL, PHOS, MG #### [facility] [address] [place] [address] Dr. Brea Causey NEUT # 4.2 103/ul Normal 1.4-6.5 [facility] Comment on above: Performed By: #### U CLINT, CMP, LIPID, DBIL, PHOS, MG #### [facility] [address] [place] [address] Dr. Brea Causey Neutrophils/100 WBC (Bld) 70.5 % Normal 43.0-75.0 [facility] Comment on above: Performed By: #### U CLINT, CMP, LIPID, DBIL, PHOS, MG #### [facility] [address] [place] [address] Dr. Brea Causey Platelet mean volume (Bld) [Entitic vol] 8.7 fL Critically low 9.5-13.5 [facility] Comment on above: Performed By: #### U CLINT, CMP, LIPID, DBIL, PHOS, MG #### [facility] [address] [place] [address] Dr. Brea Causey PLT 247 103/ul Normal 150-450 [facility] Comment on above: Performed By: #### U CLINT, CMP, LIPID, DBIL, PHOS, MG #### [facility] [address] [place] [address] Dr. Brea Causey RBC 4.15 106/ul Critically low 4.70-6.10 [facility] Comment on above: Performed By: #### U CLINT, CMP, LIPID, DBIL, PHOS, MG #### [facility] [address] [address] [address] Brea Causey WBC 5.9 103/ul Normal 4.0-11.0 [facility] Comment on above: Performed By: #### U CLINT, CMP, LIPID, DBIL, PHOS, MG #### [facility] [address] [address] [address] Brea Causey GLYCOHEMOGLOBIN A1Con 2022 ADA RECOMMENDATION SEE BELOW Normal [facility] Comment on above: Result Comment: ADA RECOMMENDED LIMIT 4.0 - 6.0 ADA THERAPEUTIC TARGET < 7.0 ACTION SUGGESTED > 7.0 Performed By: #### U CLINT, CMP, LIPID, DBIL, PHOS, MG #### [facility] [address] [address] [address] Brea Causey Glucose [Mass/Vol] 177 mg/dL Normal [facility] Comment on above: Performed By: #### U CLINT, CMP, LIPID, DBIL, PHOS, MG #### [facility] [address] [address] [address] Brea Causey HbA1c (Bld) [Mass fraction] 7.8 % Critically high 4.5-6.2 [facility] Comment on above: Performed By: #### U CLINT, CMP, LIPID, DBIL, PHOS, MG #### [facility] [address] [address] [address] Brea Causey LIPID PROFILEon 08-30-2022 CHOL-HDL RATIO NORM SEE BELOW Normal [facility] Comment on above: Result Comment: 3.3 - 4.4 LOW RISK 4.4 - 7.1 AVERAGE RISK 7.1 - 11.0 MODERATE RISK >11.0 HIGH RISK Performed By: #### U CLINT, CMP, LIPID, DBIL, PHOS, MG #### [facility] [address] [place] [address] Dr. Brea Causey Cholesterol [Mass/Vol] 96 mg/dL Normal <=200 [facility] Comment on above: Performed By: #### U CLINT, CMP, LIPID, DBIL, PHOS, MG #### [facility] [address] [address] [address] Brea Causey Cholesterol in HDL [Mass/Vol] 48 mg/dL Normal 40-60 [facility] Comment on above: Performed By: #### U CLINT, CMP, LIPID, DBIL, PHOS, MG #### [facility] [address] [address] [address] Brea Causey Cholesterol in LDL [Mass/Vol] 40.2 mg/dL Normal [facility] Comment on above: Performed By: #### U CLINT, CMP, LIPID, DBIL, PHOS, MG #### [facility] [address] [address] [address] Brea Causey Cholesterol.total/Cho lesterol in HDL [Mass ratio] 2.0 {ratio} Normal [facility] Comment on above: Performed By: #### U CLINT, CMP, LIPID, DBIL, PHOS, MG #### [facility] [address] [address] [address] Brea Causey HDL NORMAL > or = 60 mg/dl - LO W CARDIOVASCULAR RISK <40 mg/dl - HIGH CARDIOVASCULAR RISK Normal [facility] Comment on above: Performed By: #### U CLINT, CMP, LIPID, DBIL, PHOS, MG #### [facility] [address] [address] [address] Brea Causey LDL CALC NORMAL SEE BELOW Normal [facility] Comment on above: Result Comment: <100 mg/dl OPTIMAL 100 - 129 mg/dl NEAR OR ABOVE OPTIMAL 130 - 159 mg/dl BORDERLINE HIGH 160 - 189 mg/dl HIGH >190 mg/dl VERY HIGH Performed By: #### U CLINT, CMP, LIPID, DBIL, PHOS, MG #### [facility] [address] [address] [address] Brea Causey Triglyceride [Mass/Vol] 39 mg/dL Normal <=150 [facility] Comment on above: Performed By: #### U CLINT, CMP, LIPID, DBIL, PHOS, MG #### [facility] [address] [address] [address] Brea Causey VLDL CALC 7.8 mg/dL Normal [facility] Comment on above: Performed By: #### U CLINT, CMP, LIPID, DBIL, PHOS, MG #### [facility] [address] [place] [address] Dr. Brea Causey MAGNESIUMon 08-30-2022 Magnesium [Mass/Vol] 1.5 mg/dL Critically low 1.8-2.4 [facility] Comment on above: Performed By: #### U CLINT, CMP, LIPID, DBIL, PHOS, MG #### [facility] [address] [place] [address] Dr. Brea Causey PHOSPHORUSon 08-30-2022 Phosphate [Mass/Vol] 4.0 mg/dL Normal 2.6-4.7 [facility] Comment on above: Performed By: #### U CLINT, CMP, LIPID, DBIL, PHOS, MG #### [facility] [address] [place] [address] Dr. Brea Causey PROF 14(COMP METB)on 023 Albumin [Mass/Vol] 3.8 g/dL Normal 3.4-5.0 [facility] Comment on above: Performed By: #### U CLINT, CMP, LIPID, DBIL, PHOS, MG #### [facility] [address] [place] [address] Dr. Brea Causey Albumin/Globulin [Mass ratio] 1.1 {ratio} Normal [facility] Comment on above: Performed By: #### U CLINT, CMP, LIPID, DBIL, PHOS, MG #### [facility] [address] [place] [address] Dr. Brea Causey ALP [Catalytic activity/Vol] 177 U/L Critically high 46-116 [facility] Comment on above: Performed By: #### U CLINT, CMP, LIPID, DBIL, PHOS, MG #### [facility] [address] [place] [address] Dr. Brea Causey ALT [Catalytic activity/Vol] 27 U/L Normal 16-63 [facility] Comment on above: Performed By: #### U CLINT, CMP, LIPID, DBIL, PHOS, MG #### [facility] [address] [place] [address] Dr. Brea Causey Anion gap [Moles/Vol] 12.1 mmol/L Normal [facility] Comment on above: Performed By: #### U CLINT, CMP, LIPID, DBIL, PHOS, MG #### [facility] [address] [place] [address] Dr. Brea Causey AST [Catalytic activity/Vol] 19 U/L Normal 15-37 [facility] Comment on above: Performed By: #### U CLINT, CMP, LIPID, DBIL, PHOS, MG #### [facility] [address] [place] [address] Dr. Brea Causey Bilirubin [Mass/Vol] 0.3 mg/dL Normal 0.2-1.0 [facility] Comment on above: Performed By: #### U CLINT, CMP, LIPID, DBIL, PHOS, MG #### [facility] [address] [place] [address] Dr. Brea Causey Calcium [Mass/Vol] 8.0 mg/dL Critically low 8.5-10.1 [facility] Comment on above: Performed By: #### U CLINT, CMP, LIPID, DBIL, PHOS, MG #### [facility] [address] [place] [address] Dr. Brea Causey Chloride [Moles/Vol] 96 mmol/L Critically low 98-107 [facility] Comment on above: Performed By: #### U CLINT, CMP, LIPID, DBIL, PHOS, MG #### [facility] [address] [place] [address] Dr. Brea Causey CO2 [Moles/Vol] 28.0 mmol/L Normal 21.0-32.0 [facility] Comment on above: Performed By: #### U CLINT, CMP, LIPID, DBIL, PHOS, MG #### [facility] [address] [place] [address] Dr. Brea aCusey Creatinine [Mass/Vol] 1.07 mg/dL Normal 0.70-1.30 [facility] Comment on above: Performed By: #### U CLINT, CMP, LIPID, DBIL, PHOS, MG #### [facility] [address] [address] [address] Brea Causey EGFR-AF MONTENEGRIN >60 Normal >=60 [facility] Comment on above: Performed By: #### U CLINT, CMP, LIPID, DBIL, PHOS, MG #### [facility] [address] [address] [address] Brea Causey EGFR-NON AF MONTENEGRIN >60 Normal >=60 [facility] Comment on above: Performed By: #### U CLINT, CMP, LIPID, DBIL, PHOS, MG #### [facility] [address] [address] [address] Brea Causey Globulin (S) [Mass/Vol] 3.5 g/dL Normal [facility] Comment on above: Performed By: #### U CLINT, CMP, LIPID, DBIL, PHOS, MG #### [facility] [address] [address] [address] Brea Causey Glucose [Mass/Vol] 179 mg/dL Critically high 74-106 [facility] Comment on above: Performed By: #### U CLINT, CMP, LIPID, DBIL, PHOS, MG #### [facility] [address] [address] [address] Brea Causey Potassium [Moles/Vol] 5.1 mmol/L Normal 3.5-5.1 [facility] Comment on above: Performed By: #### U CLINT, CMP, LIPID, DBIL, PHOS, MG #### [facility] [address] [address] [address] Brea Causey Protein [Mass/Vol] 7.3 g/dL Normal 6.4-8.2 [facility] Comment on above: Performed By: #### U CLINT, CMP, LIPID, DBIL, PHOS, MG #### [facility] [address] [address] [address] Brea Causey Sodium [Moles/Vol] 131 mmol/L Critically low 136-145 [facility] Comment on above: Performed By: #### U CLINT, CMP, LIPID, DBIL, PHOS, MG #### [facility] [address] [place] [address] Dr. Brea Causey Urea nitrogen [Mass/Vol] 10.0 mg/dL Normal 7.0-18.0 [facility] Comment on above: Performed By: #### U CLINT, CMP, LIPID, DBIL, PHOS, MG #### [facility] [address] [place] [address] Dr. Brea Causey Urea nitrogen/Creatinine [Mass ratio] 9.3 mg/mg Normal [facility] Comment on above: Performed By: #### U CLINT, CMP, LIPID, DBIL, PHOS, MG #### [facility] [address] [place] [address] Dr. Brea Causey URIC ACID SERUMon 08-30-2022 Urate [Mass/Vol] 6.0 mg/dL Normal 3.5-7.2 [facility] Comment on above: Performed By: #### U CLINT, CMP, LIPID, DBIL, PHOS, MG #### [facility] [address] [place] [address] Dr. Brea Causey FK506 (TACROLIMUS) WHOLE BLO ODon 08-03-2022 Tacrolimus (FK506), Blood 3.2 ng/mL Normal 2.0-20.0 [facility] Comment on above: Result Comment: Trou gh (immediately following transplant) 15.0 . Trough (steady state, 2 weeks or more after transplant): 3.0 - 8.0 . Performed by LC-MS/MS technology. Performed By: #### C BC #### [facility] [address] [place] [address] Dr. Brea Causey BILIRUBIN CONJUGATED (DIRECT )on 08-01-2022 BILI, CONJUGATED 0.1 mg/dL Normal 0.0-0.2 [facility] Comment on above: Performed By: #### U CLINT, CMP, LIPID, DBIL, PHOS, MG #### [facility] [address] [place] [address] Dr. Brea Causey CBC AUTO DIFFon 08-01-2022 BASO # 0.0 103/ul Normal 0.0-0.1 [facility] Comment on above: Performed By: #### C BC #### [facility] [address] [address] [address] Brea Causey Basophils/100 WBC (Bld) 0.7 % Normal 0.2-2.0 [facility] Comment on above: Performed By: #### C BC #### [facility] [address] [address] [address] Brea Causey EO # 0.1 103/ul Normal 0.0-0.7 [facility] Comment on above: Performed By: #### C BC #### [facility] [address] [address] [address] Brea Causey Eosinophils/100 WBC (Bld) 2.4 % Normal 0.9-7.0 [facility] Comment on above: Performed By: #### C BC #### [facility] [address] [place] [address] Dr. Brea Causey Erythrocyte distribution width (RBC) [Ratio] 13.3 % Normal 11.0-15.0 [facility] Comment on above: Performed By: #### C BC #### [facility] [address] [place] [address] Dr. Brea Causey Hematocrit (Bld) [Volume fraction] 36.5 % Critically low 42.0-54.0 [facility] Comment on above: Performed By: #### C BC #### [facility] [address] [place] [address] Dr. Brea Causey Hemoglobin (Bld) [Mass/Vol] 12.1 g/dL Critically low 14.0-18.0 [facility] Comment on above: Performed By: #### C BC #### [facility] [address] [place] [address] Dr. Brea Causey IG # 0.07 10e3/ul Critically high 0.00-0.03 [facility] Comment on above: Performed By: #### C BC #### [facility] [address] [address] [address] Brea Causey IG % 1.2 % Critically high 0.0-0.5 [facility] Comment on above: Performed By: #### C BC #### [facility] [address] [place] [address] Dr. Brea Causey LYMPH # 0.9 103/ul Critically low 1.2-3.8 [facility] Comment on above: Performed By: #### C BC #### [facility] [address] [place] [address] Dr. Brea Causey Lymphocytes/100 WBC (Bld) 14.5 % Critically low 20.5-60.0 [facility] Comment on above: Performed By: #### C BC #### [facility] [address] [place] [address] Dr. Brea Causey MANUAL DIFF REQ NO Normal [facility] Comment on above: Performed By: #### C BC #### [facility] [address] [place] [address] Dr. Brea Causey MCH (RBC) [Entitic mass] 28.8 pg Normal 25.9-34.0 [facility] Comment on above: Performed By: #### C BC #### [facility] [address] [place] [address] Dr. Brea Causey MCHC (RBC) [Mass/Vol] 33.2 g/dL Normal 29.9-35.2 [facility] Comment on above: Performed By: #### C BC #### [facility] [address] [place] [address] Dr. Brea Causey MCV (RBC) [Entitic vol] 86.9 fL Normal 80.0-94.0 [facility] Comment on above: Performed By: #### C BC #### [facility] [address] [place] [address] Dr. Brea Causey MONO # 0.6 103/ul Normal 0.3-0.8 [facility] Comment on above: Performed By: #### C BC #### [facility] [address] [place] [address] Dr. Brea Causey Monocytes/100 WBC (Bld) 10.3 % Normal 1.7-12.0 [facility] Comment on above: Performed By: #### C BC #### [facility] [address] [address] [address] Brea Causey NEUT # 4.2 103/ul Normal 1.4-6.5 [facility] Comment on above: Performed By: #### C BC #### [facility] [address] [address] [address] Brea Causey Neutrophils/100 WBC (Bld) 70.9 % Normal 43.0-75.0 [facility] Comment on above: Performed By: #### C BC #### [facility] [address] [address] [address] Brea Causey Platelet mean volume (Bld) [Entitic vol] 9.1 fL Critically low 9.5-13.5 [facility] Comment on above: Performed By: #### C BC #### [facility] [address] [place] [address] Dr. Brea Causey PLT 248 103/ul Normal 150-450 [facility] Comment on above: Performed By: #### C BC #### [facility] [address] [address] [address] Brea Causey RBC 4.20 106/ul Critically low 4.70-6.10 [facility] Comment on above: Performed By: #### C BC #### [facility] [address] [place] [address] Dr. Brea Causey WBC 5.9 103/ul Normal 4.0-11.0 [facility] Comment on above: Performed By: #### C BC #### [facility] [address] [place] [address] Dr. Brea Causey LIPID PROFILEon 08-01-2022 CHOL-HDL RATIO NORM SEE BELOW Normal [facility] Comment on above: Result Comment: 3.3 - 4.4 LOW RISK 4.4 - 7.1 AVERAGE RISK 7.1 - 11.0 MODERATE RISK >11.0 HIGH RISK Performed By: #### U CLINT, CMP, LIPID, DBIL, PHOS, MG #### [facility] [address] [address] [address] Brea Causey Cholesterol [Mass/Vol] 95 mg/dL Normal <=200 [facility] Comment on above: Performed By: #### U CLINT, CMP, LIPID, DBIL, PHOS, MG #### [facility] [address] [address] [address] Brea Causey Cholesterol in HDL [Mass/Vol] 49 mg/dL Normal 40-60 [facility] Comment on above: Performed By: #### U CLINT, CMP, LIPID, DBIL, PHOS, MG #### [facility] [address] [address] [address] Brea Causey Cholesterol in LDL [Mass/Vol] 35.4 mg/dL Normal [facility] Comment on above: Performed By: #### U CLINT, CMP, LIPID, DBIL, PHOS, MG #### [facility] [address] [place] [address] Dr. Brea Causey Cholesterol.total/Cho lesterol in HDL [Mass ratio] 1.9 {ratio} Normal [facility] Comment on above: Performed By: #### U CLINT, CMP, LIPID, DBIL, PHOS, MG #### [facility] [address] [address] [address] Brea Causey HDL NORMAL > or = 60 mg/dl - LO W CARDIOVASCULAR RISK <40 mg/dl - HIGH CARDIOVASCULAR RISK Normal [facility] Comment on above: Performed By: #### U CLINT, CMP, LIPID, DBIL, PHOS, MG #### [facility] [address] [address] [address] Brea Causey LDL CALC NORMAL SEE BELOW Normal [facility] Comment on above: Result Comment: <100 mg/dl OPTIMAL 100 - 129 mg/dl NEAR OR ABOVE OPTIMAL 130 - 159 mg/dl BORDERLINE HIGH 160 - 189 mg/dl HIGH >190 mg/dl VERY HIGH Performed By: #### U CLINT, CMP, LIPID, DBIL, PHOS, MG #### [facility] [address] [address] [address] Brea Causey Triglyceride [Mass/Vol] 53 mg/dL Normal <=150 [facility] Comment on above: Performed By: #### U CLINT, CMP, LIPID, DBIL, PHOS, MG #### [facility] [address] [address] [address] Brea Causey VLDL CALC 10.6 mg/dL Normal [facility] Comment on above: Performed By: #### U CLINT, CMP, LIPID, DBIL, PHOS, MG #### [facility] [address] [address] [address] Brea Causey MAGNESIUMon 08-01-2022 Magnesium [Mass/Vol] 1.5 mg/dL Critically low 1.8-2.4 [facility] Comment on above: Performed By: #### U CLINT, CMP, LIPID, DBIL, PHOS, MG #### [facility] [address] [address] [address] Brea Causey PHOSPHORUSon 08-01-2022 Phosphate [Mass/Vol] 3.8 mg/dL Normal 2.6-4.7 [facility] Comment on above: Performed By: #### U CLINT, CMP, LIPID, DBIL, PHOS, MG #### [facility] [address] [place] [address] Dr. Brea Causey PROF 14(COMP METB)on 023 Albumin [Mass/Vol] 4.1 g/dL Normal 3.4-5.0 [facility] Comment on above: Performed By: #### U CLINT, CMP, LIPID, DBIL, PHOS, MG #### [facility] [address] [address] [address] Brea Causey Albumin/Globulin [Mass ratio] 1.3 {ratio} Normal [facility] Comment on above: Performed By: #### U CLINT, CMP, LIPID, DBIL, PHOS, MG #### [facility] [address] [address] [address] Brea Causey ALP [Catalytic activity/Vol] 197 U/L Critically high 46-116 [facility] Comment on above: Performed By: #### U CLINT, CMP, LIPID, DBIL, PHOS, MG #### [facility] [address] [address] [address] Brea Causey ALT [Catalytic activity/Vol] 26 U/L Normal 16-63 [facility] Comment on above: Performed By: #### U CLINT, CMP, LIPID, DBIL, PHOS, MG #### [facility] [address] [place] [address] Dr. Brea Causey Anion gap [Moles/Vol] 12.6 mmol/L Normal [facility] Comment on above: Performed By: #### U CLINT, CMP, LIPID, DBIL, PHOS, MG #### [facility] [address] [address] [address] Brea Causey AST [Catalytic activity/Vol] 20 U/L Normal 15-37 [facility] Comment on above: Performed By: #### U CLINT, CMP, LIPID, DBIL, PHOS, MG #### [facility] [address] [place] [address] Dr. Brea Causey Bilirubin [Mass/Vol] 0.4 mg/dL Normal 0.2-1.0 [facility] Comment on above: Performed By: #### U CLINT, CMP, LIPID, DBIL, PHOS, MG #### [facility] [address] [place] [address] Dr. Brea Causey Calcium [Mass/Vol] 7.9 mg/dL Critically low 8.5-10.1 [facility] Comment on above: Performed By: #### U CLINT, CMP, LIPID, DBIL, PHOS, MG #### [facility] [address] [place] [address] Dr. Brea Causey Chloride [Moles/Vol] 97 mmol/L Critically low 98-107 [facility] Comment on above: Performed By: #### U CLINT, CMP, LIPID, DBIL, PHOS, MG #### [facility] [address] [place] [address] Dr. Brea Causey CO2 [Moles/Vol] 28.9 mmol/L Normal 21.0-32.0 [facility] Comment on above: Performed By: #### U CLINT, CMP, LIPID, DBIL, PHOS, MG #### [facility] [address] [place] [address] Dr. Brea Causey Creatinine [Mass/Vol] 0.98 mg/dL Normal 0.70-1.30 [facility] Comment on above: Performed By: #### U CLINT, CMP, LIPID, DBIL, PHOS, MG #### [facility] [address] [address] [address] Brea Causey EGFR-AF MONTENEGRIN >60 Normal >=60 [facility] Comment on above: Performed By: #### U CLINT, CMP, LIPID, DBIL, PHOS, MG #### [facility] [address] [place] [address] Dr. Brea Causey EGFR-NON AF MONTENEGRIN >60 Normal >=60 [facility] Comment on above: Performed By: #### U CLINT, CMP, LIPID, DBIL, PHOS, MG #### [facility] [address] [place] [address] Dr. Brea Causey Globulin (S) [Mass/Vol] 3.2 g/dL Normal [facility] Comment on above: Performed By: #### U CLINT, CMP, LIPID, DBIL, PHOS, MG #### [facility] [address] [place] [address] Dr. Brea Causey Glucose [Mass/Vol] 174 mg/dL Critically high 74-106 [facility] Comment on above: Performed By: #### U CLINT, CMP, LIPID, DBIL, PHOS, MG #### [facility] [address] [place] [address] Dr. Brea Causey Potassium [Moles/Vol] 4.5 mmol/L Normal 3.5-5.1 [facility] Comment on above: Performed By: #### U CLINT, CMP, LIPID, DBIL, PHOS, MG #### [facility] [address] [address] [address] Brea Causey Protein [Mass/Vol] 7.3 g/dL Normal 6.4-8.2 [facility] Comment on above: Performed By: #### U CLINT, CMP, LIPID, DBIL, PHOS, MG #### [facility] [address] [place] [address] Dr. Brea Causey Sodium [Moles/Vol] 134 mmol/L Critically low 136-145 Th [facility] Comment on above: Performed By: #### U CLINT, CMP, LIPID, DBIL, PHOS, MG #### [facility] [address] [place] [address] Dr. Brea Causey Urea nitrogen [Mass/Vol] 8.0 mg/dL Normal 7.0-18.0 [facility] Comment on above: Performed By: #### U CLINT, CMP, LIPID, DBIL, PHOS, MG #### [facility] [address] [place] [address] Dr. Brea Causey Urea nitrogen/Creatinine [Mass ratio] 8.2 mg/mg Normal [facility] Comment on above: Performed By: #### U CLINT, CMP, LIPID, DBIL, PHOS, MG #### [facility] [address] [place] [address] Dr. Brea Causey URIC ACID SERUMon 08-01-2022 Urate [Mass/Vol] 5.8 mg/dL Normal 3.5-7.2 [facility] Comment on above: Performed By: #### U CLINT, CMP, LIPID, DBIL, PHOS, MG #### [facility] [address] [place] [address] Dr. Brea Causey FK506 (TACROLIMUS) WHOLE BLO ODon 07-07-2022 Tacrolimus (FK506), Blood 3.6 ng/mL Normal 2.0-20.0 [facility] Comment on above: Result Comment: Trou gh (immediately following transplant) 15.0 . Trough (steady state, 2 weeks or more after transplant): 3.0 - 8.0 . Performed by LC-MS/MS technology. Performed By: #### C BC #### [facility] [address] [place] [address] Dr. Brea Causey BILIRUBIN CONJUGATED (DIRECT )on 07-04-2022 BILI, CONJUGATED 0.1 mg/dL Normal 0.0-0.2 [facility] Comment on above: Performed By: #### B KVIRUS #### [facility] [address] [place] [address] Dr. Brea Causey CBC AUTO DIFFon 07-04-2022 BASO # 0.0 103/ul Normal 0.0-0.1 [facility] Comment on above: Performed By: #### U CLINT, CMP, LIPID, DBIL, PHOS, MG #### [facility] [address] [place] [address] Dr. Brea Causey Basophils/100 WBC (Bld) 0.5 % Normal 0.2-2.0 [facility] Comment on above: Performed By: #### U CLINT, CMP, LIPID, DBIL, PHOS, MG #### [facility] [address] [place] [address] Dr. Brea Causey EO # 0.2 103/ul Normal 0.0-0.7 [facility] Comment on above: Performed By: #### U CLINT, CMP, LIPID, DBIL, PHOS, MG #### [facility] [address] [place] [address] Dr. Brea Causey Eosinophils/100 WBC (Bld) 2.6 % Normal 0.9-7.0 [facility] Comment on above: Performed By: #### U CLINT, CMP, LIPID, DBIL, PHOS, MG #### [facility] [address] [place] [address] Dr. Brea Causey Erythrocyte distribution width (RBC) [Ratio] 13.3 % Normal 11.0-15.0 [facility] Comment on above: Performed By: #### U CLINT, CMP, LIPID, DBIL, PHOS, MG #### [facility] [address] [place] [address] Dr. Brea Causey Hematocrit (Bld) [Volume fraction] 37.2 % Critically low 42.0-54.0 [facility] Comment on above: Performed By: #### U CLINT, CMP, LIPID, DBIL, PHOS, MG #### [facility] [address] [place] [address] Dr. Brea Cauesy Hemoglobin (Bld) [Mass/Vol] 12.4 g/dL Critically low 14.0-18.0 [facility] Comment on above: Performed By: #### U CLINT, CMP, LIPID, DBIL, PHOS, MG #### [facility] [address] [address] [address] Brea Causey IG # 0.09 10e3/ul Critically high 0.00-0.03 [facility] Comment on above: Performed By: #### U CLINT, CMP, LIPID, DBIL, PHOS, MG #### [facility] [address] [place] [address] Dr. Brea Causey IG % 1.4 % Critically high 0.0-0.5 [facility] Comment on above: Performed By: #### U CLINT, CMP, LIPID, DBIL, PHOS, MG #### [facility] [address] [place] [address] Dr. Brea Causey LYMPH # 1.0 103/ul Critically low 1.2-3.8 [facility] Comment on above: Performed By: #### U CLINT, CMP, LIPID, DBIL, PHOS, MG #### [facility] [address] [place] [address] Dr. Brea Causey Lymphocytes/100 WBC (Bld) 15.2 % Critically low 20.5-60.0 [facility] Comment on above: Performed By: #### U CLINT, CMP, LIPID, DBIL, PHOS, MG #### [facility] [address] [place] [address] Dr. Brea Causey MANUAL DIFF REQ NO Normal [facility] Comment on above: Performed By: #### U CLINT, CMP, LIPID, DBIL, PHOS, MG #### [facility] [address] [place] [address] Dr. Brea Causey MCH (RBC) [Entitic mass] 28.8 pg Normal 25.9-34.0 [facility] Comment on above: Performed By: #### U CLINT, CMP, LIPID, DBIL, PHOS, MG #### [facility] [address] [place] [address] Dr. Brea Causey MCHC (RBC) [Mass/Vol] 33.3 g/dL Normal 29.9-35.2 [facility] Comment on above: Performed By: #### U CLINT, CMP, LIPID, DBIL, PHOS, MG #### [facility] [address] [place] [address] Dr. Brea Causey MCV (RBC) [Entitic vol] 86.5 fL Normal 80.0-94.0 [facility] Comment on above: Performed By: #### U CLINT, CMP, LIPID, DBIL, PHOS, MG #### [facility] [address] [place] [address] Dr. Brea Causey MONO # 0.7 103/ul Normal 0.3-0.8 [facility] Comment on above: Performed By: #### U CLINT, CMP, LIPID, DBIL, PHOS, MG #### [facility] [address] [place] [address] Dr. Brea Causey Monocytes/100 WBC (Bld) 10.0 % Normal 1.7-12.0 [facility] Comment on above: Performed By: #### U CLINT, CMP, LIPID, DBIL, PHOS, MG #### [facility] [address] [place] [address] Dr. Brea Causey NEUT # 4.6 103/ul Normal 1.4-6.5 [facility] Comment on above: Performed By: #### U CLINT, CMP, LIPID, DBIL, PHOS, MG #### [facility] [address] [place] [address] Dr. Brea Causey Neutrophils/100 WBC (Bld) 70.3 % Normal 43.0-75.0 [facility] Comment on above: Performed By: #### U CLINT, CMP, LIPID, DBIL, PHOS, MG #### [facility] [address] [place] [address] Dr. Brea Causey Platelet mean volume (Bld) [Entitic vol] 8.8 fL Critically low 9.5-13.5 [facility] Comment on above: Performed By: #### U CLINT, CMP, LIPID, DBIL, PHOS, MG #### [facility] [address] [place] [address] Dr. Brea Causey PLT 240 103/ul Normal 150-450 [facility] Comment on above: Performed By: #### U CLINT, CMP, LIPID, DBIL, PHOS, MG #### [facility] [address] [address] [address] Brea Causey RBC 4.30 106/ul Critically low 4.70-6.10 [facility] Comment on above: Performed By: #### U CLINT, CMP, LIPID, DBIL, PHOS, MG #### [facility] [address] [address] [address] Brea Causey WBC 6.5 103/ul Normal 4.0-11.0 [facility] Comment on above: Performed By: #### U CLINT, CMP, LIPID, DBIL, PHOS, MG #### [facility] [address] [place] [address] Dr. Brea Causey LIPID PROFILEon 07-04-2022 CHOL-HDL RATIO NORM SEE BELOW Normal [facility] Comment on above: Result Comment: 3.3 - 4.4 LOW RISK 4.4 - 7.1 AVERAGE RISK 7.1 - 11.0 MODERATE RISK >11.0 HIGH RISK Performed By: #### U CLINT, CMP, LIPID, DBIL, PHOS, MG #### [facility] [address] [place] [address] Dr. Brea Causey Cholesterol [Mass/Vol] 86 mg/dL Normal <=200 [facility] Comment on above: Performed By: #### U CLINT, CMP, LIPID, DBIL, PHOS, MG #### [facility] [address] [address] [address] Brea Causey Cholesterol in HDL [Mass/Vol] 44 mg/dL Normal 40-60 [facility] Comment on above: Performed By: #### U CLINT, CMP, LIPID, DBIL, PHOS, MG #### [facility] [address] [place] [address] Dr. Brea Causey Cholesterol in LDL [Mass/Vol] 28.0 mg/dL Normal [facility] Comment on above: Performed By: #### U CLINT, CMP, LIPID, DBIL, PHOS, MG #### [facility] [address] [address] [address] Brea Causey Cholesterol.total/Cho lesterol in HDL [Mass ratio] 2.0 {ratio} Normal [facility] Comment on above: Performed By: #### U CLINT, CMP, LIPID, DBIL, PHOS, MG #### [facility] [address] [address] [address] Brea Causey HDL NORMAL > or = 60 mg/dl - LO W CARDIOVASCULAR RISK <40 mg/dl - HIGH CARDIOVASCULAR RISK Normal [facility] Comment on above: Performed By: #### U CLINT, CMP, LIPID, DBIL, PHOS, MG #### [facility] [address] [address] [address] Brea Causey LDL CALC NORMAL SEE BELOW Normal [facility] Comment on above: Result Comment: <100 mg/dl OPTIMAL 100 - 129 mg/dl NEAR OR ABOVE OPTIMAL 130 - 159 mg/dl BORDERLINE HIGH 160 - 189 mg/dl HIGH >190 mg/dl VERY HIGH Performed By: #### U CLINT, CMP, LIPID, DBIL, PHOS, MG #### [facility] [address] [address] [address] Brea Causey Triglyceride [Mass/Vol] 70 mg/dL Normal <=150 [facility] Comment on above: Performed By: #### U CLINT, CMP, LIPID, DBIL, PHOS, MG #### [facility] [address] [address] [address] Brea Causey VLDL CALC 14.0 mg/dL Normal [facility] Comment on above: Performed By: #### U CLINT, CMP, LIPID, DBIL, PHOS, MG #### [facility] [address] [address] [address] Brea Causey MAGNESIUMon 07-04-2022 Magnesium [Mass/Vol] 1.4 mg/dL Critically low 1.8-2.4 [facility] Comment on above: Performed By: #### U CLINT, CMP, LIPID, DBIL, PHOS, MG #### [facility] [address] [address] [address] Brea Causey PHOSPHORUSon 07-04-2022 Phosphate [Mass/Vol] 4.1 mg/dL Normal 2.6-4.7 [facility] Comment on above: Performed By: #### U CLINT, CMP, LIPID, DBIL, PHOS, MG #### [facility] [address] [place] [address] Dr. Brea Causey PROF 14(COMP METB)on 023 Albumin [Mass/Vol] 4.0 g/dL Normal 3.4-5.0 [facility] Comment on above: Performed By: #### B KVIRUS #### [facility] [address] [place] [address] Dr. Brea Causey Albumin/Globulin [Mass ratio] 1.3 {ratio} Normal [facility] Comment on above: Performed By: #### B KVIRUS #### [facility] [address] [place] [address] Dr. Brea Causey ALP [Catalytic activity/Vol] 212 U/L Critically high 46-116 [facility] Comment on above: Performed By: #### B KVIRUS #### [facility] [address] [place] [address] Dr. Brea Causey ALT [Catalytic activity/Vol] 31 U/L Normal 16-63 [facility] Comment on above: Performed By: #### B KVIRUS #### [facility] [address] [place] [address] Dr. Brea Causey Anion gap [Moles/Vol] 11.9 mmol/L [facility] Comment on above: Performed By: #### B KVIRUS #### [facility] [address] [place] [address] Dr. Brea Causey AST [Catalytic activity/Vol] 21 U/L Normal 15-37 [facility] Comment on above: Performed By: #### B KVIRUS #### [facility] [address] [place] [address] Dr. Brea Causey Bilirubin [Mass/Vol] 0.3 mg/dL Normal 0.2-1.0 [facility] Comment on above: Performed By: #### B KVIRUS #### [facility] [address] [place] [address] Dr. Brea Causey Calcium [Mass/Vol] 8.1 mg/dL Critically low 8.5-10.1 [facility] Comment on above: Performed By: #### B KVIRUS #### [facility] [address] [place] [address] Dr. Brea Causey Chloride [Moles/Vol] 97 mmol/L Critically low 98-107 [facility] Comment on above: Performed By: #### B KVIRUS #### [facility] [address] [place] [address] Dr. Brea Causey CO2 [Moles/Vol] 26.8 mmol/L Normal 21.0-32.0 [facility] Comment on above: Performed By: #### B KVIRUS #### [facility] [address] [place] [address] Dr. Brea Causey Creatinine [Mass/Vol] 0.99 mg/dL Normal 0.70-1.30 [facility] Comment on above: Performed By: #### B KVIRUS #### [facility] [address] [place] [address] Dr. Brea Causey EGFR-AF MONTENEGRIN >60 Normal >=60 [facility] Comment on above: Performed By: #### B KVIRUS #### [facility] [address] [place] [address] Dr. Brea Causey EGFR-NON AF MONTENEGRIN >60 Normal >=60 [facility] Comment on above: Performed By: #### B KVIRUS #### [facility] [address] [place] [address] Dr. Brea Causey Globulin (S) [Mass/Vol] 3.2 g/dL Normal [facility] Comment on above: Performed By: #### B KVIRUS #### [facility] [address] [place] [address] Dr. Brea Causey Glucose [Mass/Vol] 169 mg/dL Critically high 74-106 [facility] Comment on above: Performed By: #### B KVIRUS #### [facility] [address] [place] [address] Dr. Brea Causey Potassium [Moles/Vol] 4.7 mmol/L Normal 3.5-5.1 [facility] Comment on above: Performed By: #### B KVIRUS #### [facility] [address] [place] [address] Dr. Brea Causey Protein [Mass/Vol] 7.2 g/dL Normal 6.4-8.2 [facility] Comment on above: Performed By: #### B KVIRUS #### [facility] [address] [place] [address] Dr. Brea Causey Sodium [Moles/Vol] 131 mmol/L Critically low 136-145 [facility] Comment on above: Performed By: #### B KVIRUS #### [facility] [address] [place] [address] Dr. Brea Causey Urea nitrogen [Mass/Vol] 9.0 mg/dL Normal 7.0-18.0 [facility] Comment on above: Performed By: #### B KVIRUS #### [facility] [address] [place] [address] Dr. Brea Causey Urea nitrogen/Creatinine [Mass ratio] 9.1 mg/mg Normal [facility] Comment on above: Performed By: #### B KVIRUS #### [facility] [address] [place] [address] Dr. Brea Causey URIC ACID SERUMon 07-04-2022 Urate [Mass/Vol] 6.1 mg/dL Normal 3.5-7.2 [facility] Comment on above: Performed By: #### U CLINT, CMP, LIPID, DBIL, PHOS, MG #### [facility] [address] [place] [address] Dr. Brea Causey TESTOSTERONE, FREE,DIRECT, T OTALon 05-28-2022 Free Testosterone(Direct) 5.9 pg/mL Critically low 6.6-18.1 [facility] Comment on above: Result Comment: Perf ormed at: BN Performed By: #### U CLINT, CMP, LIPID, DBIL, PHOS, MG #### [facility] [address] [place] [address] Dr. Brea Causey Testosterone [Mass/Vol] 513 ng/dL Normal 264-916 [facility] Comment on above: Result Comment: Adul t male reference interval is based on a population of healthy nonobese males (BMI <30) between 19 and 39 years old. daniel Harris.al. JCEM 2017,102;[id number]. PMID: [id number]. Performed at: CB Performed By: #### U CLINT, CMP, LIPID, DBIL, PHOS, MG #### [facility] [address] [address] [address] Brea Causey FK506 (TACROLIMUS) WHOLE BLO ODon 05-26-2022 Tacrolimus (FK506), Blood 3.9 ng/mL Normal 2.0-20.0 [facility] Comment on above: Result Comment: Trou gh (immediately following transplant) 15.0 . Trough (steady state, 2 weeks or more after transplant): 3.0 - 8.0 . Performed by LC-MS/MS technology. Performed By: #### B KVIRUS #### [facility] [address] [address] [address] Brea Causey BK VIRUS PCR QUANTon 023 BKV DNA QUANT PCR PLASMA Negative Normal Negative [facility] Comment on above: Result Comment: No B K DNA detected. . The linear range of the assay is 22 - 100,000,000 IU/mL. Performed By: #### U CLINT, CMP, LIPID, DBIL, PHOS, MG #### [facility] [address] [address] [address] Brea Causey Log10 BKV DNA Plasma Normal [facility] Comment on above: Performed By: #### U CLINT, CMP, LIPID, DBIL, PHOS, MG #### [facility] [address] [address] [address] Brea Causey BILIRUBIN CONJUGATED (DIRECT )on 05-23-2022 BILI, CONJUGATED 0.2 mg/dL Normal 0.0-0.2 [facility] Comment on above: Performed By: #### C BC #### [facility] [address] [address] [address] Brea Causey CBC AUTO DIFFon 05-23-2022 BASO # 0.0 103/ul Normal 0.0-0.1 [facility] Comment on above: Performed By: #### B KVIRUS #### [facility] [address] [place] [address] Dr. Brea Causey Basophils/100 WBC (Bld) 0.6 % Normal 0.2-2.0 [facility] Comment on above: Performed By: #### B KVIRUS #### [facility] [address] [place] [address] Dr. Brea Causey EO # 0.1 103/ul Normal 0.0-0.7 [facility] Comment on above: Performed By: #### B KVIRUS #### [facility] [address] [place] [address] Dr. Brea Causey Eosinophils/100 WBC (Bld) 1.7 % Normal 0.9-7.0 [facility] Comment on above: Performed By: #### B KVIRUS #### [facility] [address] [place] [address] Dr. Brea Causey Erythrocyte distribution width (RBC) [Ratio] 13.4 % Normal 11.0-15.0 [facility] Comment on above: Performed By: #### B KVIRUS #### [facility] [address] [place] [address] Dr. Brea Causey Hematocrit (Bld) [Volume fraction] 38.8 % Critically low 42.0-54.0 [facility] Comment on above: Performed By: #### B KVIRUS #### [facility] [address] [place] [address] Dr. Brea Causey Hemoglobin (Bld) [Mass/Vol] 12.4 g/dL Critically low 14.0-18.0 [facility] Comment on above: Performed By: #### B KVIRUS #### [facility] [address] [place] [address] Dr. Brea Causey IG # 0.07 10e3/ul Critically high 0.00-0.03 [facility] Comment on above: Performed By: #### B KVIRUS #### [facility] [address] [place] [address] Dr. Brea Causey IG % 1.1 % Critically high 0.0-0.5 [facility] Comment on above: Performed By: #### B KVIRUS #### [facility] [address] [place] [address] Dr. Brea Causey LYMPH # 0.9 103/ul Critically low 1.2-3.8 [facility] [facility] Comment on above: Performed By: #### B KVIRUS #### [facility] [address] [address] [address] Brea Causey Lymphocytes/100 WBC (Bld) 14.1 % Critically low 20.5-60.0 [facility] Comment on above: Performed By: #### B KVIRUS #### [facility] [address] [place] [address] Dr. Brea Causey MANUAL DIFF REQ NO Normal [facility] Comment on above: Performed By: #### B KVIRUS #### [facility] [address] [place] [address] Dr. Brea Causey MCH (RBC) [Entitic mass] 29.3 pg Normal 25.9-34.0 [facility] Comment on above: Performed By: #### B KVIRUS #### [facility] [address] [place] [address] Dr. Brea Causey MCHC (RBC) [Mass/Vol] 32.0 g/dL Normal 29.9-35.2 [facility] Comment on above: Performed By: #### B KVIRUS #### [facility] [address] [place] [address] Dr. Brea Causey MCV (RBC) [Entitic vol] 91.7 fL Normal 80.0-94.0 [facility] Comment on above: Performed By: #### B KVIRUS #### [facility] [address] [place] [address] Dr. Brea Causey MONO # 0.7 103/ul Normal 0.3-0.8 [facility] Comment on above: Performed By: #### B KVIRUS #### [facility] [address] [place] [address] Dr. Brea Causey Monocytes/100 WBC (Bld) 10.0 % Normal 1.7-12.0 [facility] Comment on above: Performed By: #### B KVIRUS #### [facility] [address] [place] [address] Dr. Brea Causey NEUT # 4.7 103/ul Normal 1.4-6.5 [facility] Comment on above: Performed By: #### B KVIRUS #### [facility] [address] [place] [address] Dr. Brea Causey Neutrophils/100 WBC (Bld) 72.5 % Normal 43.0-75.0 [facility] Comment on above: Performed By: #### B KVIRUS #### [facility] [address] [place] [address] Dr. Brea Causey Platelet mean volume (Bld) [Entitic vol] 9.4 fL Critically low 9.5-13.5 [facility] Comment on above: Performed By: #### B KVIRUS #### [facility] [address] [place] [address] Dr. Brea Causey PLT 256 103/ul Normal 150-450 [facility] Comment on above: Performed By: #### B KVIRUS #### [facility] [address] [place] [address] Dr. Brea Causey RBC 4.23 106/ul Critically low 4.70-6.10 [facility] Comment on above: Performed By: #### B KVIRUS #### [facility] [address] [place] [address] Dr. Brea Causey WBC 6.5 103/ul Normal 4.0-11.0 [facility] Comment on above: Performed By: #### B KVIRUS #### [facility] [address] [place] [address] Dr. Brea Causey GLYCOHEMOGLOBIN A1Con 2022 ADA RECOMMENDATION SEE BELOW Normal [facility] Comment on above: Result Comment: ADA RECOMMENDED LIMIT 4.0 - 6.0 ADA THERAPEUTIC TARGET < 7.0 ACTION SUGGESTED > 7.0 Performed By: #### U CLINT, CMP, LIPID, DBIL, PHOS, MG #### [facility] [address] [address] [address] Brea Causey Glucose [Mass/Vol] 160 mg/dL Normal [facility] Comment on above: Performed By: #### U CLINT, CMP, LIPID, DBIL, PHOS, MG #### [facility] [address] [address] [address] Brea Causey HbA1c (Bld) [Mass fraction] 7.2 % Critically high 4.5-6.2 [facility] Comment on above: Performed By: #### U CLINT, CMP, LIPID, DBIL, PHOS, MG #### [facility] [address] [address] [address] Brea Causey LIPID PROFILEon 05-23-2022 CHOL-HDL RATIO NORM SEE BELOW Normal [facility] Comment on above: Result Comment: 3.3 - 4.4 LOW RISK 4.4 - 7.1 AVERAGE RISK 7.1 - 11.0 MODERATE RISK >11.0 HIGH RISK Performed By: #### C BC #### [facility] [address] [address] [address] Brea Causey Cholesterol [Mass/Vol] 87 mg/dL Normal <=200 [facility] Comment on above: Performed By: #### C BC #### [facility] [address] [address] [address] Brea Causey Cholesterol in HDL [Mass/Vol] 54 mg/dL Normal 40-60 [facility] Comment on above: Performed By: #### C BC #### [facility] [address] [address] [address] Brea Causey Cholesterol in LDL [Mass/Vol] 24.6 mg/dL Normal [facility] Comment on above: Performed By: #### C BC #### [facility] [address] [address] [address] Brea Causey Cholesterol.total/Cho lesterol in HDL [Mass ratio] 1.6 {ratio} Normal [facility] Comment on above: Performed By: #### C BC #### [facility] [address] [address] [address] Brea Causey HDL NORMAL > or = 60 mg/dl - LO W CARDIOVASCULAR RISK <40 mg/dl - HIGH CARDIOVASCULAR RISK Normal [facility] Comment on above: Performed By: #### C BC #### [facility] [address] [place] [address] Dr. Brea Causey LDL CALC NORMAL SEE BELOW Normal [facility] Comment on above: Result Comment: <100 mg/dl OPTIMAL 100 - 129 mg/dl NEAR OR ABOVE OPTIMAL 130 - 159 mg/dl BORDERLINE HIGH 160 - 189 mg/dl HIGH >190 mg/dl VERY HIGH Performed By: #### C BC #### [facility] [address] [place] [address] Dr. Brea Causey Triglyceride [Mass/Vol] 42 mg/dL Normal <=150 [facility] Comment on above: Performed By: #### C BC #### [facility] [address] [place] [address] Dr. Brea Causey VLDL CALC 8.4 mg/dL Normal [facility] Comment on above: Performed By: #### C BC #### [facility] [address] [place] [address] Dr. Brea Causey MAGNESIUMon 05-23-2022 Magnesium [Mass/Vol] 1.4 mg/dL Critically low 1.8-2.4 [facility] Comment on above: Performed By: #### C BC #### [facility] [address] [place] [address] Dr. Brea Causey PHOSPHORUSon 05-23-2022 Phosphate [Mass/Vol] 3.6 mg/dL Normal 2.6-4.7 [facility] Comment on above: Performed By: #### C BC #### [facility] [address] [place] [address] Dr. Brea Causey PROF 14(COMP METB)on 023 Albumin [Mass/Vol] 3.9 g/dL Normal 3.4-5.0 [facility] Comment on above: Performed By: #### C BC #### [facility] [address] [place] [address] Dr. Brea Causey Albumin/Globulin [Mass ratio] 1.2 {ratio} Normal [facility] Comment on above: Performed By: #### C BC #### [facility] [address] [address] [address] Brea Causey ALP [Catalytic activity/Vol] 190 U/L Critically high 46-116 [facility] Comment on above: Performed By: #### C BC #### [facility] [address] [address] [address] Brea Causey ALT [Catalytic activity/Vol] 26 U/L Normal 16-63 [facility] Comment on above: Performed By: #### C BC #### [facility] [address] [address] [address] Brea Causey Anion gap [Moles/Vol] 13.1 mmol/L Normal [facility] Comment on above: Performed By: #### C BC #### [facility] [address] [place] [address] Dr. Brea Causey AST [Catalytic activity/Vol] 18 U/L Normal 15-37 [facility] Comment on above: Performed By: #### C BC #### [facility] [address] [place] [address] Dr. Brea Causey Bilirubin [Mass/Vol] 0.4 mg/dL Normal 0.2-1.0 [facility] Comment on above: Performed By: #### C BC #### [facility] [address] [place] [address] Dr. Brea Causey Calcium [Mass/Vol] 7.8 mg/dL Critically low 8.5-10.1 [facility] Comment on above: Performed By: #### C BC #### [facility] [address] [address] [address] Brea Causey Chloride [Moles/Vol] 95 mmol/L Critically low 98-107 [facility] Comment on above: Performed By: #### C BC #### [facility] [address] [place] [address] Dr. Brea Causey CO2 [Moles/Vol] 28.8 mmol/L Normal 21.0-32.0 [facility] Comment on above: Performed By: #### C BC #### [facility] [address] [address] [address] Brea Causey Creatinine [Mass/Vol] 1.03 mg/dL Normal 0.70-1.30 [facility] Comment on above: Performed By: #### C BC #### [facility] [address] [address] [address] Brea Causey EGFR-AF MONTENEGRIN >60 Normal >=60 [facility] Comment on above: Performed By: #### C BC #### [facility] [address] [address] [address] Brea Causey EGFR-NON AF MONTENEGRIN >60 Normal >=60 [facility] Comment on above: Performed By: #### C BC #### [facility] [address] [place] [address] Dr. Brea Causey Globulin (S) [Mass/Vol] 3.2 g/dL Normal [facility] Comment on above: Performed By: #### C BC #### [facility] [address] [place] [address] Dr. Brea Causey Glucose [Mass/Vol] 155 mg/dL Critically high 74-106 [facility] Comment on above: Performed By: #### C BC #### [facility] [address] [place] [address] Dr. Brea Causey Potassium [Moles/Vol] 4.9 mmol/L Normal 3.5-5.1 [facility] Comment on above: Performed By: #### C BC #### [facility] [address] [place] [address] Dr. Brea Causey Protein [Mass/Vol] 7.1 g/dL Normal 6.4-8.2 [facility] Comment on above: Performed By: #### C BC #### [facility] [address] [address] [address] Brea Causey Sodium [Moles/Vol] 132 mmol/L Critically low 136-145 [facility] Comment on above: Performed By: #### C BC #### [facility] [id number] Brea Causey Urea nitrogen [Mass/Vol] 8.0 mg/dL Normal 7.0-18.0 [facility] Comment on above: Performed By: #### C BC #### [facility] [address] [id number] Brea Causey Urea nitrogen/Creatinine [Mass ratio] 7.8 mg/mg Normal [facility] Comment on above: Performed By: #### C BC #### [facility] [address] [address] [address] Brea Causey URIC ACID SERUMon 05-23-2022 Urate [Mass/Vol] 5.6 mg/dL Normal 3.5-7.2 [facility] Comment on above: Performed By: #### C BC #### [facility] [address] [address] [address] Brea Causey TESTOSTERONE, FREE,DIRECT, T OTALon 05-03-2022 Free Testosterone(Direct) 7.4 pg/mL Normal 6.6-18.1 [facility] Comment on above: Result Comment: Perf ormed at: BN Performed By: #### U CLINT, CMP, LIPID, DBIL, PHOS, MG #### [facility] [address] [place] [address] Dr. Brea Causey Testosterone [Mass/Vol] 494 ng/dL Normal 264-916 [facility] Comment on above: Result Comment: Adul t male reference interval is based on a population of healthy nonobese males (BMI <30) between 19 and 39 years old. Steven et.al. JCEM 2017,102;[id number]. PMID: [id number]. Performed at: CB Performed By: #### U CLINT, CMP, LIPID, DBIL, PHOS, MG #### [facility] [address] [place], [place] [id number] Dr. Brea Causey FK506 (TACROLIMUS) WHOLE BLO ODon 05-02-2022 Tacrolimus (FK506), Blood 4.3 ng/mL Normal 2.0-20.0 [facility] Comment on above: Result Comment: Trou gh (immediately following transplant) 15.0 . Trough (steady state, 2 weeks or more after transplant): 3.0 - 8.0 . Performed by LC-MS/MS technology. Performed By: #### C BC #### [facility] [address] [place] [address] Dr. Brea Causey BILIRUBIN CONJUGATED (DIRECT )on 04-30-2022 BILI, CONJUGATED 0.1 mg/dL Normal 0.0-0.2 [facility] Comment on above: Performed By: #### U CLINT, CMP, LIPID, DBIL, PHOS, MG #### [facility] [address] [place] [address] Dr. Brea Causey CBC AUTO DIFFon 04-30-2022 BASO # 0.0 103/ul Normal 0.0-0.1 [facility] Comment on above: Performed By: #### U CLINT, CMP, LIPID, DBIL, PHOS, MG #### [facility] [address] [place] [address] Dr. Brea Causey Basophils/100 WBC (Bld) 0.5 % Normal 0.2-2.0 [facility] Comment on above: Performed By: #### U CLINT, CMP, LIPID, DBIL, PHOS, MG #### [facility] [address] [place] [address] Dr. Brea Causey EO # 0.1 103/ul Normal 0.0-0.7 [facility] Comment on above: Performed By: #### U CLINT, CMP, LIPID, DBIL, PHOS, MG #### [facility] [address] [place] [address] Dr. Brea Causey Eosinophils/100 WBC (Bld) 2.1 % Normal 0.9-7.0 [facility] Comment on above: Performed By: #### U CLINT, CMP, LIPID, DBIL, PHOS, MG #### [facility] [address] [place] [address] Dr. Brea Causey Erythrocyte distribution width (RBC) [Ratio] 13.2 % Normal 11.0-15.0 [facility] Comment on above: Performed By: #### U CLINT, CMP, LIPID, DBIL, PHOS, MG #### [facility] [address] [place] [address] Dr. Brea Causey Hematocrit (Bld) [Volume fraction] 37.0 % Critically low 42.0-54.0 [facility] Comment on above: Performed By: #### U CLINT, CMP, LIPID, DBIL, PHOS, MG #### [facility] [address] [address] [address] Brea Causey Hemoglobin (Bld) [Mass/Vol] 12.4 g/dL Critically low 14.0-18.0 [facility] Comment on above: Performed By: #### U CLINT, CMP, LIPID, DBIL, PHOS, MG #### [facility] [address] [place] [address] Dr. Brea Causey IG # 0.05 10e3/ul Critically high 0.00-0.03 [facility] Comment on above: Performed By: #### U CLINT, CMP, LIPID, DBIL, PHOS, MG #### [facility] [address] [place] [address] Dr. Brea Causey IG % 0.9 % Critically high 0.0-0.5 [facility] Comment on above: Performed By: #### U CLINT, CMP, LIPID, DBIL, PHOS, MG #### [facility] [address] [place] [address] Dr. Brea Causey LYMPH # 1.0 103/ul Critically low 1.2-3.8 [facility] Comment on above: Performed By: #### U CLINT, CMP, LIPID, DBIL, PHOS, MG #### [facility] [address] [place] [address] Dr. Brea Causey Lymphocytes/100 WBC (Bld) 16.4 % Critically low 20.5-60.0 [facility] Comment on above: Performed By: #### U CLINT, CMP, LIPID, DBIL, PHOS, MG #### [facility] [address] [place] [address] Dr. Brea Causey MANUAL DIFF REQ NO Normal [facility] Comment on above: Performed By: #### U CLINT, CMP, LIPID, DBIL, PHOS, MG #### [facility] [address] [place] [address] Dr. Brea Causey MCH (RBC) [Entitic mass] 29.0 pg Normal 25.9-34.0 [facility] Comment on above: Performed By: #### U CLINT, CMP, LIPID, DBIL, PHOS, MG #### [facility] [address] [place] [address] Dr. Brea Causey MCHC (RBC) [Mass/Vol] 33.5 g/dL Normal 29.9-35.2 [facility] Comment on above: Performed By: #### U CLINT, CMP, LIPID, DBIL, PHOS, MG #### [facility] [address] [place] [address] Dr. Brea Causey MCV (RBC) [Entitic vol] 86.7 fL Normal 80.0-94.0 [facility] Comment on above: Performed By: #### U CLINT, CMP, LIPID, DBIL, PHOS, MG #### [facility] [address] [place] [address] Dr. Brea Causey MONO # 0.7 103/ul Normal 0.3-0.8 [facility] Comment on above: Performed By: #### U CLINT, CMP, LIPID, DBIL, PHOS, MG #### [facility] [address] [place] [address] Dr. Brea Causey Monocytes/100 WBC (Bld) 11.6 % Normal 1.7-12.0 [facility] Comment on above: Performed By: #### U CLINT, CMP, LIPID, DBIL, PHOS, MG #### [facility] [address] [place] [address] Dr. Brea Causey NEUT # 4.0 103/ul Normal 1.4-6.5 [facility] Comment on above: Performed By: #### U CLINT, CMP, LIPID, DBIL, PHOS, MG #### [facility] [address] [place] [address] Dr. Brea Causey Neutrophils/100 WBC (Bld) 68.5 % Normal 43.0-75.0 [facility] Comment on above: Performed By: #### U CLINT, CMP, LIPID, DBIL, PHOS, MG #### [facility] [address] [address] [address] Brea Causey Platelet mean volume (Bld) [Entitic vol] 9.2 fL Critically low 9.5-13.5 [facility] Comment on above: Performed By: #### U CLINT, CMP, LIPID, DBIL, PHOS, MG #### [facility] [address] [address] [address] Brea Causey PLT 231 103/ul Normal 150-450 [facility] Comment on above: Performed By: #### U CLINT, CMP, LIPID, DBIL, PHOS, MG #### [facility] [address] [address] [address] Brea Causey RBC 4.27 106/ul Critically low 4.70-6.10 [facility] Comment on above: Performed By: #### U CLINT, CMP, LIPID, DBIL, PHOS, MG #### [facility] [address] [address] [address] Brea Causey WBC 5.9 103/ul Normal 4.0-11.0 [facility] Comment on above: Performed By: #### U CLINT, CMP, LIPID, DBIL, PHOS, MG #### [facility] [address] [address] [address] Brea Causey LIPID PROFILEon 04-30-2022 CHOL-HDL RATIO NORM SEE BELOW Normal [facility] Comment on above: Result Comment: 3.3 - 4.4 LOW RISK 4.4 - 7.1 AVERAGE RISK 7.1 - 11.0 MODERATE RISK >11.0 HIGH RISK Performed By: #### U CLINT, CMP, LIPID, DBIL, PHOS, MG #### [facility] [address] [address] [address] Brea Causey Cholesterol [Mass/Vol] 78 mg/dL Normal <=200 [facility] Comment on above: Performed By: #### U CLINT, CMP, LIPID, DBIL, PHOS, MG #### [facility] [address] [address] [address] Brea Causey Cholesterol in HDL [Mass/Vol] 41 mg/dL Normal 40-60 [facility] Comment on above: Performed By: #### U CLINT, CMP, LIPID, DBIL, PHOS, MG #### [facility] [address] [address] [address] Brea Causey Cholesterol in LDL [Mass/Vol] 17.8 mg/dL Normal [facility] Comment on above: Performed By: #### U CLINT, CMP, LIPID, DBIL, PHOS, MG #### [facility] [address] [address] [address] Brea Causey Cholesterol.total/Cho lesterol in HDL [Mass ratio] 1.9 {ratio} Normal [facility] Comment on above: Performed By: #### U CLINT, CMP, LIPID, DBIL, PHOS, MG #### [facility] [address] [address] [address] Brea Causey HDL NORMAL > or = 60 mg/dl - LO W CARDIOVASCULAR RISK <40 mg/dl - HIGH CARDIOVASCULAR RISK Normal [facility] Comment on above: Performed By: #### U CLINT, CMP, LIPID, DBIL, PHOS, MG #### [facility] [address] [address] [address] Brea Causey LDL CALC NORMAL SEE BELOW Normal [facility] Comment on above: Result Comment: <100 mg/dl OPTIMAL 100 - 129 mg/dl NEAR OR ABOVE OPTIMAL 130 - 159 mg/dl BORDERLINE HIGH 160 - 189 mg/dl HIGH >190 mg/dl VERY HIGH Performed By: #### U CLINT, CMP, LIPID, DBIL, PHOS, MG #### [facility] [address] [address] [address] Brea Causey Triglyceride [Mass/Vol] 96 mg/dL Normal <=150 [facility] Comment on above: Performed By: #### U CLINT, CMP, LIPID, DBIL, PHOS, MG #### [facility] [address] [address] [address] Brea Causey VLDL CALC 19.2 mg/dL Normal [facility] Comment on above: Performed By: #### U CLINT, CMP, LIPID, DBIL, PHOS, MG #### [facility] [address] [place] [address] Dr. Brea Causey MAGNESIUMon 04-30-2022 Magnesium [Mass/Vol] 1.7 mg/dL Critically low 1.8-2.4 [facility] Comment on above: Performed By: #### U CLINT, CMP, LIPID, DBIL, PHOS, MG #### [facility] [address] [place] [address] Dr. Brea Causey PHOSPHORUSon 04-30-2022 Phosphate [Mass/Vol] 3.6 mg/dL Normal 2.6-4.7 [facility] Comment on above: Performed By: #### U CLINT, CMP, LIPID, DBIL, PHOS, MG #### [facility] [address] [place] [address] Dr. Brea Causey PROF 14(COMP METB)on 022 Albumin [Mass/Vol] 4.0 g/dL Normal 3.4-5.0 [facility] Comment on above: Performed By: #### U CLINT, CMP, LIPID, DBIL, PHOS, MG #### [facility] [address] [place] [address] Dr. Brea Causey Albumin/Globulin [Mass ratio] 1.3 {ratio} Normal [facility] Comment on above: Performed By: #### U CLINT, CMP, LIPID, DBIL, PHOS, MG #### [facility] [address] [place] [address] Dr. Brea Causey ALP [Catalytic activity/Vol] 196 U/L Critically high 46-116 [facility] Comment on above: Performed By: #### U CLINT, CMP, LIPID, DBIL, PHOS, MG #### [facility] [address] [place] [address] Dr. Brea Causey ALT [Catalytic activity/Vol] 21 U/L Normal 16-63 [facility] Comment on above: Performed By: #### U CLINT, CMP, LIPID, DBIL, PHOS, MG #### [facility] [address] [place] [address] Dr. Brea Causey Anion gap [Moles/Vol] 10.5 mmol/L Normal [facility] Comment on above: Performed By: #### U CLINT, CMP, LIPID, DBIL, PHOS, MG #### [facility] [address] [place] [address] Dr. Brea Causey AST [Catalytic activity/Vol] 16 U/L Normal 15-37 [facility] Comment on above: Performed By: #### U CLINT, CMP, LIPID, DBIL, PHOS, MG #### [facility] [address] [address] [address] Brea Causey Bilirubin [Mass/Vol] 0.3 mg/dL Normal 0.2-1.0 [facility] Comment on above: Performed By: #### U CLINT, CMP, LIPID, DBIL, PHOS, MG #### [facility] [address] [place] [address] Dr. Brea Causey Calcium [Mass/Vol] 8.6 mg/dL Normal 8.5-10.1 [facility] Comment on above: Performed By: #### U CLINT, CMP, LIPID, DBIL, PHOS, MG #### [facility] [address] [place] [address] Dr. Brea Causey Chloride [Moles/Vol] 95 mmol/L Critically low 98-107 [facility] Comment on above: Performed By: #### U CLINT, CMP, LIPID, DBIL, PHOS, MG #### [facility] [address] [place] [address] Dr. Brea Causey CO2 [Moles/Vol] 30.9 mmol/L Normal 21.0-32.0 [facility] Comment on above: Performed By: #### U CLINT, CMP, LIPID, DBIL, PHOS, MG #### [facility] [address] [place] [address] Dr. Brea Causey Creatinine [Mass/Vol] 1.00 mg/dL Normal 0.70-1.30 [facility] Comment on above: Performed By: #### U CLINT, CMP, LIPID, DBIL, PHOS, MG #### [facility] [facility] [address] [address] [address] Brea Causey EGFR-AF MONTENEGRIN >60 Normal >=60 [facility] Comment on above: Performed By: #### U CLINT, CMP, LIPID, DBIL, PHOS, MG #### [facility] [address] [address] [address] Brea Causey EGFR-NON AF MONTENEGRIN >60 Normal >=60 [facility] Comment on above: Performed By: #### U CLINT, CMP, LIPID, DBIL, PHOS, MG #### [facility] [address] [address] [address] Brea Causey Globulin (S) [Mass/Vol] 3.2 g/dL Normal [facility] Comment on above: Performed By: #### U CLINT, CMP, LIPID, DBIL, PHOS, MG #### [facility] [address] [address] [address] Brea Causey Glucose [Mass/Vol] 160 mg/dL Critically high 74-106 [facility] Comment on above: Performed By: #### U CLINT, CMP, LIPID, DBIL, PHOS, MG #### [facility] [address] [address] [address] Brea Causey Potassium [Moles/Vol] 5.4 mmol/L Critically high 3.5-5.1 [facility] Comment on above: Performed By: #### U CLINT, CMP, LIPID, DBIL, PHOS, MG #### [facility] [address] [address] [address] Brea Causey Protein [Mass/Vol] 7.2 g/dL Normal 6.4-8.2 [facility] Comment on above: Performed By: #### U CLINT, CMP, LIPID, DBIL, PHOS, MG #### [facility] [address] [address] [address] Brea Causey Sodium [Moles/Vol] 131 mmol/L Critically low 136-145 [facility] Comment on above: Performed By: #### U CLINT, CMP, LIPID, DBIL, PHOS, MG #### [facility] [address] [place] [address] Dr. Brea Causey Urea nitrogen [Mass/Vol] 11.0 mg/dL Normal 7.0-18.0 [facility] Comment on above: Performed By: #### U CLINT, CMP, LIPID, DBIL, PHOS, MG #### [facility] [address] [place] [address] Dr. Brea Causey Urea nitrogen/Creatinine [Mass ratio] 11.0 mg/mg Normal [facility] Comment on above: Performed By: #### U CLINT, CMP, LIPID, DBIL, PHOS, MG #### [facility] [address] [place] [address] Dr. Brea Causye URIC ACID SERUMon 04-30-2022 Urate [Mass/Vol] 5.9 mg/dL Normal 3.5-7.2 [facility] Comment on above: Performed By: #### U CLINT, CMP, LIPID, DBIL, PHOS, MG #### [facility] [address] [place] [address] Dr. Brea Causey FK506 (TACROLIMUS) WHOLE BLO ODon 04-06-2022 Tacrolimus (FK506), Blood 3.0 ng/mL Normal 2.0-20.0 [facility] Comment on above: Result Comment: Trou gh (immediately following transplant) 15.0 . Trough (steady state, 2 weeks or more after transplant): 3.0 - 8.0 . Performed by LC-MS/MS technology. Performed By: #### U CLINT, CMP, LIPID, DBIL, PHOS, MG #### [facility] [address] [place] [address] Dr. Brea Causey BILIRUBIN CONJUGATED (DIRECT )on 04-03-2022 BILI, CONJUGATED 0.1 mg/dL Normal 0.0-0.2 [facility] Comment on above: Performed By: #### U CLINT, CMP, LIPID, DBIL, PHOS, MG #### [facility] [address] [place] [address] Dr. Brea Causey CBC AUTO DIFFon 04-03-2022 BASO # 0.0 103/ul Normal 0.0-0.1 [facility] Comment on above: Performed By: #### U CLINT, CMP, LIPID, DBIL, PHOS, MG #### [facility] [address] [place] [address] Dr. Brea Causey Basophils/100 WBC (Bld) 0.5 % Normal 0.2-2.0 [facility] Comment on above: Performed By: #### U CLINT, CMP, LIPID, DBIL, PHOS, MG #### [facility] [address] [place] [address] Dr. Brea Causey EO # 0.1 103/ul Normal 0.0-0.7 [facility] Comment on above: Performed By: #### U CLINT, CMP, LIPID, DBIL, PHOS, MG #### [facility] [address] [place] [address] Dr. Brea Causey Eosinophils/100 WBC (Bld) 2.5 % Normal 0.9-7.0 [facility] Comment on above: Performed By: #### U CLINT, CMP, LIPID, DBIL, PHOS, MG #### [facility] [address] [place] [address] Dr. Brea Causey Erythrocyte distribution width (RBC) [Ratio] 13.3 % Normal 11.0-15.0 [facility] Comment on above: Performed By: #### U CLINT, CMP, LIPID, DBIL, PHOS, MG #### [facility] [address] [place] [address] Dr. Brea Causey Hematocrit (Bld) [Volume fraction] 36.4 % Critically low 42.0-54.0 [facility] Comment on above: Performed By: #### U CLINT, CMP, LIPID, DBIL, PHOS, MG #### [facility] [address] [place] [address] Dr. Brea Causey Hemoglobin (Bld) [Mass/Vol] 12.3 g/dL Critically low 14.0-18.0 [facility] Comment on above: Performed By: #### U CLINT, CMP, LIPID, DBIL, PHOS, MG #### [facility] [address] [address] [address] Brea Causey IG # 0.03 10e3/ul Normal 0.00-0.03 [facility] Comment on above: Performed By: #### U CLINT, CMP, LIPID, DBIL, PHOS, MG #### [facility] [address] [place] [address] Dr. Brea Causey IG % 0.5 % Normal 0.0-0.5 [facility] Comment on above: Performed By: #### U CLINT, CMP, LIPID, DBIL, PHOS, MG #### [facility] [address] [place] [address] Dr. Brea Causey LYMPH # 0.9 103/ul Critically low 1.2-3.8 [facility] Comment on above: Performed By: #### U CLINT, CMP, LIPID, DBIL, PHOS, MG #### [facility] [address] [place] [address] Dr. Brea Causey Lymphocytes/100 WBC (Bld) 16.9 % Critically low 20.5-60.0 [facility] Comment on above: Performed By: #### U CLINT, CMP, LIPID, DBIL, PHOS, MG #### [facility] [address] [place] [address] Dr. Brea Causey MANUAL DIFF REQ NO Normal [facility] Comment on above: Performed By: #### U CLINT, CMP, LIPID, DBIL, PHOS, MG #### [facility] [address] [place] [address] Dr. Brea Causey MCH (RBC) [Entitic mass] 29.3 pg Normal 25.9-34.0 [facility] Comment on above: Performed By: #### U CLINT, CMP, LIPID, DBIL, PHOS, MG #### [facility] [address] [place] [address] Dr. Brea Causey MCHC (RBC) [Mass/Vol] 33.8 g/dL Normal 29.9-35.2 [facility] Comment on above: Performed By: #### U CLINT, CMP, LIPID, DBIL, PHOS, MG #### [facility] [address] [place] [address] Dr. Brea Causey MCV (RBC) [Entitic vol] 86.7 fL Normal 80.0-94.0 [facility] Comment on above: Performed By: #### U CLINT, CMP, LIPID, DBIL, PHOS, MG #### [facility] [address] [place] [address] Dr. Brea Causey MONO # 0.6 103/ul Normal 0.3-0.8 [facility] Comment on above: Performed By: #### U CLINT, CMP, LIPID, DBIL, PHOS, MG #### [facility] [address] [place] [address] Dr. Brea Causey Monocytes/100 WBC (Bld) 10.1 % Normal 1.7-12.0 [facility] Comment on above: Performed By: #### U CLINT, CMP, LIPID, DBIL, PHOS, MG #### [facility] [address] [place] [address] Dr. Brea Causey NEUT # 3.9 103/ul Normal 1.4-6.5 [facility] Comment on above: Performed By: #### U CLINT, CMP, LIPID, DBIL, PHOS, MG #### [facility] [address] [place] [address] Dr. Brea Causey Neutrophils/100 WBC (Bld) 69.5 % Normal 43.0-75.0 [facility] Comment on above: Performed By: #### U CLINT, CMP, LIPID, DBIL, PHOS, MG #### [facility] [address] [place] [address] Dr. Brea Causey Platelet mean volume (Bld) [Entitic vol] 9.2 fL Critically low 9.5-13.5 [facility] Comment on above: Performed By: #### U CLINT, CMP, LIPID, DBIL, PHOS, MG #### [facility] [address] [place] [address] Dr. Brea Causey PLT 228 103/ul Normal 150-450 [facility] Comment on above: Performed By: #### U CLINT, CMP, LIPID, DBIL, PHOS, MG #### [facility] [address] [address] [address] Brea Causey RBC 4.20 106/ul Critically low 4.70-6.10 [facility] Comment on above: Performed By: #### U CLINT, CMP, LIPID, DBIL, PHOS, MG #### [facility] [address] [place] [address] Dr. Brea Causey WBC 5.6 103/ul Normal 4.0-11.0 [facility] Comment on above: Performed By: #### U CLINT, CMP, LIPID, DBIL, PHOS, MG #### [facility] [address] [place] [address] Dr. Brea Causey LIPID PROFILEon 04-03-2022 CHOL-HDL RATIO NORM SEE BELOW Normal [facility] Comment on above: Result Comment: 3.3 - 4.4 LOW RISK 4.4 - 7.1 AVERAGE RISK 7.1 - 11.0 MODERATE RISK >11.0 HIGH RISK Performed By: #### U CLINT, CMP, LIPID, DBIL, PHOS, MG #### [facility] [address] [place] [address] Dr. Brea Causey Cholesterol [Mass/Vol] 84 mg/dL Normal <=200 [facility] Comment on above: Performed By: #### U CLINT, CMP, LIPID, DBIL, PHOS, MG #### [facility] [address] [place] [address] Dr. Brea Causey Cholesterol in HDL [Mass/Vol] 45 mg/dL Normal 40-60 [facility] Comment on above: Performed By: #### U CLINT, CMP, LIPID, DBIL, PHOS, MG #### [facility] [address] [place] [address] Dr. Brea Causey Cholesterol in LDL [Mass/Vol] 22.8 mg/dL Normal [facility] Comment on above: Performed By: #### U CLINT, CMP, LIPID, DBIL, PHOS, MG #### [facility] [address] [place] [address] Dr. Brea Causey Cholesterol.total/Cho lesterol in HDL [Mass ratio] 1.9 {ratio} Normal [facility] Comment on above: Performed By: #### U CLINT, CMP, LIPID, DBIL, PHOS, MG #### [facility] [address] [address] [address] Brea Causey HDL NORMAL > or = 60 mg/dl - LO W CARDIOVASCULAR RISK <40 mg/dl - HIGH CARDIOVASCULAR RISK Normal [facility] Comment on above: Performed By: #### U CLINT, CMP, LIPID, DBIL, PHOS, MG #### [facility] [address] [address] [address] Brea Causey LDL CALC NORMAL SEE BELOW Normal [facility] Comment on above: Result Comment: <100 mg/dl OPTIMAL 100 - 129 mg/dl NEAR OR ABOVE OPTIMAL 130 - 159 mg/dl BORDERLINE HIGH 160 - 189 mg/dl HIGH >190 mg/dl VERY HIGH Performed By: #### U CLINT, CMP, LIPID, DBIL, PHOS, MG #### [facility] [address] [address] [address] Brea Causey Triglyceride [Mass/Vol] 81 mg/dL Normal <=150 [facility] Comment on above: Performed By: #### U CLINT, CMP, LIPID, DBIL, PHOS, MG #### [facility] [address] [address] [address] Brea Causey VLDL CALC 16.2 mg/dL Normal [facility] Comment on above: Performed By: #### U CLINT, CMP, LIPID, DBIL, PHOS, MG #### [facility] [address] [address] [address] Brea Causey MAGNESIUMon 04-03-2022 Magnesium [Mass/Vol] 1.6 mg/dL Critically low 1.8-2.4 [facility] Comment on above: Performed By: #### U CLINT, CMP, LIPID, DBIL, PHOS, MG #### [facility] [address] [address] [address] Brea Causey PHOSPHORUSon 04-03-2022 Phosphate [Mass/Vol] 3.9 mg/dL Normal 2.6-4.7 [facility] Comment on above: Performed By: #### U CLINT, CMP, LIPID, DBIL, PHOS, MG #### [facility] [address] [place] [address] Dr. Brea Causey PROF 14(COMP METB)on 022 Albumin [Mass/Vol] 4.0 g/dL Normal 3.4-5.0 [facility] Comment on above: Performed By: #### U CLINT, CMP, LIPID, DBIL, PHOS, MG #### [facility] [address] [place] [address] Dr. Brea Causey Albumin/Globulin [Mass ratio] 1.2 {ratio} Normal [facility] Comment on above: Performed By: #### U CLINT, CMP, LIPID, DBIL, PHOS, MG #### [facility] [address] [place] [address] Dr. Brea Causey ALP [Catalytic activity/Vol] 196 U/L Critically high 46-116 [facility] Comment on above: Performed By: #### U CLINT, CMP, LIPID, DBIL, PHOS, MG #### [facility] [address] [place] [address] Dr. Brea Causey ALT [Catalytic activity/Vol] 19 U/L Normal 16-63 [facility] Comment on above: Performed By: #### U CLINT, CMP, LIPID, DBIL, PHOS, MG #### [facility] [address] [place] [address] Dr. Brea Causey Anion gap [Moles/Vol] 10.2 mmol/L Normal [facility] Comment on above: Performed By: #### U CLINT, CMP, LIPID, DBIL, PHOS, MG #### [facility] [address] [place] [address] Dr. Brea Causey AST [Catalytic activity/Vol] 15 U/L Normal 15-37 [facility] Comment on above: Performed By: #### U CLINT, CMP, LIPID, DBIL, PHOS, MG #### [facility] [address] [place] [address] Dr. Brea Causey Bilirubin [Mass/Vol] 0.3 mg/dL Normal 0.2-1.0 [facility] Comment on above: Performed By: #### U CLINT, CMP, LIPID, DBIL, PHOS, MG #### [facility] [address] [place] [address] Dr. Brea Causey Calcium [Mass/Vol] 8.2 mg/dL Critically low 8.5-10.1 [facility] Comment on above: Performed By: #### U CLINT, CMP, LIPID, DBIL, PHOS, MG #### [facility] [address] [place] [address] Dr. Brea Causey Chloride [Moles/Vol] 97 mmol/L Critically low 98-107 [facility] Comment on above: Performed By: #### U CLINT, CMP, LIPID, DBIL, PHOS, MG #### [facility] [address] [place] [address] Dr. Brea Causey CO2 [Moles/Vol] 28.2 mmol/L Normal 21.0-32.0 [facility] Comment on above: Performed By: #### U CLINT, CMP, LIPID, DBIL, PHOS, MG #### [facility] [address] [place] [address] Dr. Brea Causey Creatinine [Mass/Vol] 1.00 mg/dL Normal 0.70-1.30 [facility] Comment on above: Performed By: #### U CLINT, CMP, LIPID, DBIL, PHOS, MG #### [facility] [address] [place] [address] Dr. Brea Causey EGFR-AF MONTENEGRIN >60 Normal >=60 [facility] Comment on above: Performed By: #### U CLINT, CMP, LIPID, DBIL, PHOS, MG #### [facility] [address] [place] [address] Dr. Brea Causey EGFR-NON AF MONTENEGRIN >60 Normal >=60 [facility] Comment on above: Performed By: #### U CLINT, CMP, LIPID, DBIL, PHOS, MG #### [facility] [address] [place] [address] Dr. Brea Cauesy Globulin (S) [Mass/Vol] 3.3 g/dL Normal [facility] Comment on above: Performed By: #### U CLINT, CMP, LIPID, DBIL, PHOS, MG #### [facility] [address] [address] [address] Brea Causey Glucose [Mass/Vol] 164 mg/dL Critically high 74-106 [facility] Comment on above: Performed By: #### U CLINT, CMP, LIPID, DBIL, PHOS, MG #### [facility] [address] [address] [address] Brea Causey Potassium [Moles/Vol] 4.4 mmol/L Normal 3.5-5.1 [facility] Comment on above: Performed By: #### U CLINT, CMP, LIPID, DBIL, PHOS, MG #### [facility] [address] [place] [address] Dr. Brea Causey Protein [Mass/Vol] 7.3 g/dL Normal 6.4-8.2 [facility] Comment on above: Performed By: #### U CLINT, CMP, LIPID, DBIL, PHOS, MG #### [facility] [address] [place] [address] Dr. Brea Causey Sodium [Moles/Vol] 131 mmol/L Critically low 136-145 [facility] Comment on above: Performed By: #### U CLINT, CMP, LIPID, DBIL, PHOS, MG #### [facility] [address] [place] [address] Dr. Brea Causey Urea nitrogen [Mass/Vol] 13.0 mg/dL Normal 7.0-18.0 [facility] Comment on above: Performed By: #### U CLINT, CMP, LIPID, DBIL, PHOS, MG #### [facility] [address] [place] [address] Dr. Brea Causey Urea nitrogen/Creatinine [Mass ratio] 13.0 mg/mg Normal [facility] Comment on above: Performed By: #### U CLINT, CMP, LIPID, DBIL, PHOS, MG #### [facility] [address] [address] [address] Brea Causey URIC ACID SERUMon 04-03-2022 Urate [Mass/Vol] 6.1 mg/dL Normal 3.5-7.2 [facility] Comment on above: Performed By: #### U CLINT, CMP, LIPID, DBIL, PHOS, MG #### [facility] [address] [address] [address] Brea Causey TESTOSTERONE, FREE,DIRECT, T OTALon 03-13-2022 Free Testosterone(Direct) 6.9 pg/mL Normal 6.6-18.[address] [facility] Comment on above: Result Comment: Perf ormed at: BN Performed By: #### T ESTFRD #### [facility] [address] [place] [address] Dr. Brea Causey Testosterone [Mass/Vol] 428 ng/dL Normal 264-916 [facility] Comment on above: Result Comment: Adul t male reference interval is based on a population of healthy nonobese males (BMI <30) between 19 and 39 years old. Steven et.al. JCEM 2017,102;[id number]. PMID: [id number]. Performed at: CB Performed By: #### T ESTFRD #### [facility] [address] [place] [address] Dr. Brea Causey BK VIRUS PCR QUANTon 022 BKV DNA QUANT PCR PLASMA Negative Normal Negative [facility] Comment on above: Result Comment: No B K DNA detected. . The linear range of the assay is 22 - 100,000,000 IU/mL. Performed By: #### B KVIRUS #### [facility] [address] [place] [address] Dr. Brea Causey Log10 BKV DNA Plasma Normal [facility] Comment on above: Performed By: #### B KVIRUS #### [facility] [address] [place] [address] Dr. Brea Causey FK506 (TACROLIMUS) WHOLE BLO ODon 03-11-2022 Tacrolimus (FK506), Blood 4.7 ng/mL Normal 2.0-20.0 [facility] Comment on above: Result Comment: Trou gh (immediately following transplant) 15.0 . Trough (steady state, 2 weeks or more after transplant): 3.0 - 8.0 . Performed by LC-MS/MS technology. Performed By: #### C BC #### [facility] [address] [place] [address] Dr. Brea Causey BILIRUBIN CONJUGATED (DIRECT )on 03-08-2022 BILI, CONJUGATED 0.1 mg/dL Normal 0.0-0.2 [facility] Comment on above: Performed By: #### U CLINT, CMP, LIPID, DBIL, PHOS, MG #### [facility] [address] [place] [address] Dr. Brea Causey CBC AUTO DIFFon 03-08-2022 BASO # 0.0 103/ul Normal 0.0-0.1 [facility] Comment on above: Performed By: #### U CLINT, CMP, LIPID, DBIL, PHOS, MG #### [facility] [address] [place] [address] Dr. Brea Causey Basophils/100 WBC (Bld) 0.7 % Normal 0.2-2.0 [facility] Comment on above: Performed By: #### U CLINT, CMP, LIPID, DBIL, PHOS, MG #### [facility] [address] [place] [address] Dr. Brea Causey EO # 0.2 103/ul Normal 0.0-0.7 [facility] Comment on above: Performed By: #### U CLINT, CMP, LIPID, DBIL, PHOS, MG #### [facility] [address] [place] [address] Dr. Brea Causey Eosinophils/100 WBC (Bld) 3.1 % Normal 0.9-7.0 [facility] Comment on above: Performed By: #### U CLINT, CMP, LIPID, DBIL, PHOS, MG #### [facility] [address] [place] [address] Dr. Brea Causey Erythrocyte distribution width (RBC) [Ratio] 13.3 % Normal 11.0-15.0 [facility] Comment on above: Performed By: #### U CLINT, CMP, LIPID, DBIL, PHOS, MG #### [facility] [address] [place] [address] Dr. Brea Causey Hematocrit (Bld) [Volume fraction] 35.7 % Critically low 42.0-54.0 [facility] Comment on above: Performed By: #### U CLINT, CMP, LIPID, DBIL, PHOS, MG #### [facility] [address] [place] [address] Dr. Brea Causey Hemoglobin (Bld) [Mass/Vol] 12.0 g/dL Critically low 14.0-18.0 [facility] Comment on above: Performed By: #### U CLINT, CMP, LIPID, DBIL, PHOS, MG #### [facility] [address] [place] [address] Dr. Brea Causey IG # 0.06 10e3/ul Critically high 0.00-0.03 [facility] Comment on above: Performed By: #### U CLINT, CMP, LIPID, DBIL, PHOS, MG #### [facility] [address] [place] [address] Dr. Brea Causey IG % 1.0 % Critically high 0.0-0.5 [facility] Comment on above: Performed By: #### U CLINT, CMP, LIPID, DBIL, PHOS, MG #### [facility] [address] [place] [address] Dr. Brea Causey LYMPH # 0.8 103/ul Critically low 1.2-3.8 [facility] Comment on above: Performed By: #### U CLINT, CMP, LIPID, DBIL, PHOS, MG #### [facility] [address] [place] [address] Dr. Brea Causey Lymphocytes/100 WBC (Bld) 12.9 % Critically low 20.5-60.0 [facility] Comment on above: Performed By: #### U CLINT, CMP, LIPID, DBIL, PHOS, MG #### [facility] [address] [place] [address] Dr. Brea Causey MANUAL DIFF REQ NO Normal [facility] Comment on above: Performed By: #### U CLINT, CMP, LIPID, DBIL, PHOS, MG #### [facility] [address] [place] [address] Dr. Brea Causey MCH (RBC) [Entitic mass] 29.5 pg Normal 25.9-34.0 [facility] Comment on above: Performed By: #### U CLINT, CMP, LIPID, DBIL, PHOS, MG #### [facility] [address] [place] [address] Dr. Brea Causey MCHC (RBC) [Mass/Vol] 33.6 g/dL Normal 29.9-35.2 [facility] Comment on above: Performed By: #### U CLINT, CMP, LIPID, DBIL, PHOS, MG #### [facility] [address] [place] [address] Dr. Brea Causey MCV (RBC) [Entitic vol] 87.7 fL Normal 80.0-94.0 [facility] Comment on above: Performed By: #### U CLINT, CMP, LIPID, DBIL, PHOS, MG #### [facility] [address] [place] [address] Dr. Brea Causey MONO # 0.6 103/ul Normal 0.3-0.8 [facility] Comment on above: Performed By: #### U CLINT, CMP, LIPID, DBIL, PHOS, MG #### [facility] [address] [place] [address] Dr. Brea Causey Monocytes/100 WBC (Bld) 9.8 % Normal 1.7-12.0 [facility] Comment on above: Performed By: #### U CLINT, CMP, LIPID, DBIL, PHOS, MG #### [facility] [address] [place] [address] Dr. Brea Causey NEUT # 4.4 103/ul Normal 1.4-6.5 [facility] Comment on above: Performed By: #### U CLINT, CMP, LIPID, DBIL, PHOS, MG #### [facility] [address] [place] [address] Dr. Brea Causey Neutrophils/100 WBC (Bld) 72.5 % Normal 43.0-75.0 [facility] Comment on above: Performed By: #### U CLINT, CMP, LIPID, DBIL, PHOS, MG #### [facility] [address] [address] [address] Brea Causey Platelet mean volume (Bld) [Entitic vol] 9.6 fL Normal 9.5-13.5 [facility] Comment on above: Performed By: #### U CLINT, CMP, LIPID, DBIL, PHOS, MG #### [facility] [address] [address] [address] Brea Causey PLT 265 103/ul Normal 150-450 [facility] Comment on above: Performed By: #### U CLINT, CMP, LIPID, DBIL, PHOS, MG #### [facility] [address] [place] [address] Dr. Brea Causey RBC 4.07 106/ul Critically low 4.70-6.10 [facility] Comment on above: Performed By: #### U CLINT, CMP, LIPID, DBIL, PHOS, MG #### [facility] [address] [address] [address] Brea Causey WBC 6.0 103/ul Normal 4.0-11.0 [facility] Comment on above: Performed By: #### U CLINT, CMP, LIPID, DBIL, PHOS, MG #### [facility] [address] [address] [address] Brea Causey GLYCOHEMOGLOBIN A1Con 2021 ADA RECOMMENDATION SEE BELOW Normal [facility] Comment on above: Result Comment: ADA RECOMMENDED LIMIT 4.0 - 6.0 ADA THERAPEUTIC TARGET < 7.0 ACTION SUGGESTED > 7.0 Performed By: #### U CLINT, CMP, LIPID, DBIL, PHOS, MG #### [facility] [address] [address] [address] Brea Causey Glucose [Mass/Vol] 169 mg/dL Normal [facility] Comment on above: Performed By: #### U CLINT, CMP, LIPID, DBIL, PHOS, MG #### [facility] [address] [address] [address] Brea Causey HbA1c (Bld) [Mass fraction] 7.5 % Critically high 4.5-6.2 [facility] Comment on above: Performed By: #### U CLINT, CMP, LIPID, DBIL, PHOS, MG #### [facility] [address] [address] [address] Brea Causey LIPID PROFILEon 03-08-2022 CHOL-HDL RATIO NORM SEE BELOW Normal [facility] Comment on above: Result Comment: 3.3 - 4.4 LOW RISK 4.4 - 7.1 AVERAGE RISK 7.1 - 11.0 MODERATE RISK >11.0 HIGH RISK Performed By: #### U CLINT, CMP, LIPID, DBIL, PHOS, MG #### [facility] [address] [place] [address] Dr. rBea Causey Cholesterol [Mass/Vol] 77 mg/dL Normal <=200 [facility] Comment on above: Performed By: #### U CLINT, CMP, LIPID, DBIL, PHOS, MG #### [facility] [address] [address] [address] Brea Causey Cholesterol in HDL [Mass/Vol] 49 mg/dL Normal 40-60 [facility] Comment on above: Performed By: #### U CLINT, CMP, LIPID, DBIL, PHOS, MG #### [facility] [address] [address] [address] Brea Causey Cholesterol in LDL [Mass/Vol] 20.4 mg/dL Normal [facility] Comment on above: Performed By: #### U CLINT, CMP, LIPID, DBIL, PHOS, MG #### [facility] [address] [address] [address] Brea Causey Cholesterol.total/Cho lesterol in HDL [Mass ratio] 1.6 {ratio} Normal [facility] Comment on above: Performed By: #### U CLINT, CMP, LIPID, DBIL, PHOS, MG #### [facility] [address] [place] [address] Dr. Brea Causey HDL NORMAL > or = 60 mg/dl - LO W CARDIOVASCULAR RISK <40 mg/dl - HIGH CARDIOVASCULAR RISK Normal [facility] Comment on above: Performed By: #### U CLINT, CMP, LIPID, DBIL, PHOS, MG #### [facility] [address] [address] [address] Brea Causey LDL CALC NORMAL SEE BELOW Normal [facility] Comment on above: Result Comment: <100 mg/dl OPTIMAL 100 - 129 mg/dl NEAR OR ABOVE OPTIMAL 130 - 159 mg/dl BORDERLINE HIGH 160 - 189 mg/dl HIGH >190 mg/dl VERY HIGH Performed By: #### U CLINT, CMP, LIPID, DBIL, PHOS, MG #### [facility] [address] [address] [address] Brea Causey Triglyceride [Mass/Vol] 38 mg/dL Normal <=150 [facility] Comment on above: Performed By: #### U CLINT, CMP, LIPID, DBIL, PHOS, MG #### [facility] [address] [address] [address] Brea Causey VLDL CALC 7.6 mg/dL Normal [facility] Comment on above: Performed By: #### U CLINT, CMP, LIPID, DBIL, PHOS, MG #### [facility] [address] [address] [address] Brea Causey MAGNESIUMon 03-08-2022 Magnesium [Mass/Vol] 1.5 mg/dL Critically low 1.8-2.4 [facility] Comment on above: Performed By: #### U CLINT, CMP, LIPID, DBIL, PHOS, MG #### [facility] [address] [address] [address] Brea Causey PHOSPHORUSon 03-08-2022 Phosphate [Mass/Vol] 3.6 mg/dL Normal 2.6-4.7 [facility] Comment on above: Performed By: #### U CLINT, CMP, LIPID, DBIL, PHOS, MG #### [facility] [address] [address] [address] Brea Causey PROF 14(COMP METB)on 10-28-2 022 Albumin [Mass/Vol] 4.0 g/dL Normal 3.4-5.0 [facility] Comment on above: Performed By: #### U CLINT, CMP, LIPID, DBIL, PHOS, MG #### [facility] [address] [place] [address] Dr. Brea Causey Albumin/Globulin [Mass ratio] 1.2 {ratio} Normal [facility] Comment on above: Performed By: #### U CLINT, CMP, LIPID, DBIL, PHOS, MG #### [facility] [address] [place] [address] Dr. Brea Causey ALP [Catalytic activity/Vol] 176 U/L Critically high 46-116 [facility] Comment on above: Performed By: #### U CLINT, CMP, LIPID, DBIL, PHOS, MG #### [facility] [address] [place] [address] Dr. Brea Causey ALT [Catalytic activity/Vol] 21 U/L Normal 16-63 [facility] Comment on above: Performed By: #### U CLINT, CMP, LIPID, DBIL, PHOS, MG #### [facility] [address] [place] [address] Dr. Brea Causey Anion gap [Moles/Vol] 12.0 mmol/L Normal [facility] Comment on above: Performed By: #### U CLINT, CMP, LIPID, DBIL, PHOS, MG #### [facility] [address] [place] [address] Dr. Brea Causey AST [Catalytic activity/Vol] 13 U/L Critically low 15-37 [facility] Comment on above: Performed By: #### U CLINT, CMP, LIPID, DBIL, PHOS, MG #### [facility] [address] [place] [address] Dr. Brea Causey Bilirubin [Mass/Vol] 0.3 mg/dL Normal 0.2-1.0 [facility] Comment on above: Performed By: #### U CLINT, CMP, LIPID, DBIL, PHOS, MG #### [facility] [address] [place] [address] Dr. Brea Causey Calcium [Mass/Vol] 7.9 mg/dL Critically low 8.5-10.1 [facility] Comment on above: Performed By: #### U CLINT, CMP, LIPID, DBIL, PHOS, MG #### [facility] [address] [place] [address] Dr. Brea Causey Chloride [Moles/Vol] 100 mmol/L Normal 98-107 [facility] Comment on above: Performed By: #### U CLINT, CMP, LIPID, DBIL, PHOS, MG #### [facility] [address] [address] [address] Brea Causey CO2 [Moles/Vol] 27.3 mmol/L Normal 21.0-32.0 [facility] Comment on above: Performed By: #### U CLINT, CMP, LIPID, DBIL, PHOS, MG #### [facility] [address] [place] [address] Dr. Brea Causey Creatinine [Mass/Vol] 1.00 mg/dL Normal 0.70-1.30 [facility] Comment on above: Performed By: #### U CLINT, CMP, LIPID, DBIL, PHOS, MG #### [facility] [address] [place] [address] Dr. Brea Causey EGFR-AF MONTENEGRIN >60 Normal >=60 [facility] Comment on above: Performed By: #### U CLINT, CMP, LIPID, DBIL, PHOS, MG #### [facility] [address] [place] [address] Dr. Brea Causey EGFR-NON AF MONTENEGRIN >60 Normal >=60 [facility] Comment on above: Performed By: #### U CLINT, CMP, LIPID, DBIL, PHOS, MG #### [facility] [address] [place] [address] Dr. Brea Causey Globulin (S) [Mass/Vol] 3.3 g/dL Normal [facility] Comment on above: Performed By: #### U CLINT, CMP, LIPID, DBIL, PHOS, MG #### [facility] [address] [place] [address] Dr. Brea Causey Glucose [Mass/Vol] 155 mg/dL Critically high 74-106 [facility] Comment on above: Performed By: #### U CLINT, CMP, LIPID, DBIL, PHOS, MG #### [facility] [address] [place] [address] Dr. Brea Causey Potassium [Moles/Vol] 4.3 mmol/L Normal 3.5-5.1 [facility] Comment on above: Performed By: #### U CLINT, CMP, LIPID, DBIL, PHOS, MG #### [facility] [address] [address] [address] Brea Causey Protein [Mass/Vol] 7.3 g/dL Normal 6.4-8.2 [facility] Comment on above: Performed By: #### U CLINT, CMP, LIPID, DBIL, PHOS, MG #### [facility] [address] [place] [address] Dr. Brea Causey Sodium [Moles/Vol] 135 mmol/L Critically low 136-145 [facility] Comment on above: Performed By: #### U CLINT, CMP, LIPID, DBIL, PHOS, MG #### [facility] [address] [place] [address] Dr. Brea Causey Urea nitrogen [Mass/Vol] 13.0 mg/dL Normal 7.0-18.0 [facility] Comment on above: Performed By: #### U CLINT, CMP, LIPID, DBIL, PHOS, MG #### [facility] [address] [place] [address] Dr. Brea Causey Urea nitrogen/Creatinine [Mass ratio] 13.0 mg/mg Normal [facility] Comment on above: Performed By: #### U CLINT, CMP, LIPID, DBIL, PHOS, MG #### [facility] [address] [place] [address] Dr. Brea Causey URIC ACID SERUMon 03-08-2022 Urate [Mass/Vol] 7.3 mg/dL Critically high 3.5-7.2 [facility] Comment on above: Performed By: #### U CLINT, CMP, LIPID, DBIL, PHOS, MG #### [facility] [address] [place] [address] Dr. Brea Snyder 03-05-2022 L - -------- Specimen: [id number] Received: 03/05/22 Status: CHERI aFir Num: [id number] Spec Type: Surgical Subm Dr: Tj Wells MD Tissues: A Colon Biopsy (COLON BX) B Colon Biopsy (DIVERTICULAR COLITIS) Procedures: HE Stain/4, Gross/Micro L4/2 -------- Age/ Patient Sex Location Account Attending Physician -------- Wm Suarez/Naomi [id number] Tj Wells MD -------- SPEC NUM: [id number] RECD: 03/05/22 STATUS: CHERI FAIR NUM: [id number] ESTEFANI: 03/05/22 DR: Tj Wells MD ENTERED: 03/05/[address]: SPEC TYPE: Surgical DEPT: S ORDERED: [...] in one cassette labeled B1. -------- Specimen: [id number] Received: 03/05/22 Status: CHERI Fair Num: [id number] Spec Type: Surgical Subm Dr: Tj Wells MD Tissues: A Colon Biopsy (COLON BX) B Colon Biopsy (DIVERTICULAR COLITIS) Procedures: HE Stain/4, Gross/Micro L4/2 -------- Patient: Wm Suarez [id number] (Continued) -------- Specimen: [id number] Received: 03/05/22 (Continued) Signed (signature on file) Kalpana Shaw MD 03/07/22 1025 -------- Specimen: [id number] Received: 03/05/22 Status: CHERI Fair Num: [id number] Spec Type: Surgical Subm Dr: Tj Wells MD Tissues: A Colon Biopsy (COLON BX) B Colon Biopsy (DIVERTICULAR COLITIS) Procedures: HE Stain/4, Gross/Micro L4/2 -------- Patient: Wm Suarez [id number] (Continued) -------- Specimen: [id number] Received: 03/05/22 (Continued) Microscopic Description A. Two glass slides with H E stained material have been examined. The microscopic findings support the above pathologic diagnosis. B. Two glass slides with H E stained material have been examined. The microscopic findings support the above pathologic diagnosis. CPT Codes 29534?2 -------- -------- Specimen: [id number] Received: 03/05/22 Status: CHERI Fair Num: [id number] Spec Type: Surgical Subm Dr: Tj Wells MD Tissues: A Colon Biopsy (COLON BX) B Colon Biopsy (DIVERTICULAR COLITIS) Procedures: HE Stain/4, Gross/Micro L4/2 -------- Patient: Wm Suarez [id number] (Continued) -------- Signed (signature on file) Kalpana Shaw MD 03/07/22 1025 [facility] COVID-19 Antigenon 2 COVID-19 Antigen [...] developed and its performance characteristic determined by [employer] and validated at [facility]. This test has not been FDA [...] for SARS Antigen by ROCHELLE PERFORMED BY: [address] [address] [place] [address] [employer] REPAIRER FEI WOODRUFF M.D. Normal [facility] Comment on above: Performed By: #### C OVID-19 MARQUISE, SOFIANEG #### [facility] [address] COVID-19 SOFIAOrdered By: Sheila Wells on 03-01-2022 SARS-CoV+SARS-CoV-2 (COVID-19) Ag IA.rapid Ql (Resp) Negative Negative [facility] Comment on above: This is a duplicate Marquise SARS Antigen (ROCHELLE) result to be used for statistical tracking purpose only. No Panel InformationOrdered By: Tj Wells on 03-01-2022 SARS Antigen (LFIA) [facility] Marquise Ag Negativeon 03-01-20 22 Marquise Ag Negative Negative Normal Negative [facility] Comment on above: Result Comment: This is a duplicate Marquise SARS Antigen (ROCHELLE) result to be used for statistical tracking purpose only. PERFORMED BY: [place] [address] LIGHT REPAIRER FEI WOODRUFF M.D. Performed By: #### C OVID-19 MARQUISE, SOFIANEG #### [facility] [address] [place] [address] FK506 (TACROLIMUS) WHOLE BLO ODon 02-05-2022 Tacrolimus (FK506), Blood 5.4 ng/mL Normal 2.0-20.0 [facility] Comment on above: Result Comment: Trou gh (immediately following transplant) 15.0 . Trough (steady state, 2 weeks or more after transplant): 3.0 - 8.0 . Performed by LC-MS/MS technology. Performed By: #### U CLINT, CMP, LIPID, DBIL, PHOS, MG #### [facility] [address] [address] [address] Brea Causey BILIRUBIN CONJUGATED (DIRECT )on 02-01-2022 BILI, CONJUGATED 0.1 mg/dL Normal 0.0-0.2 [facility] Comment on above: Performed By: #### C BC #### [facility] [address] [address] [address] Brea Causey CBC AUTO DIFFon 02-01-2022 BASO # 0.0 103/ul Normal 0.0-0.1 [facility] Comment on above: Performed By: #### B KVIRUS #### [facility] [address] [place] [address] Dr. Brea Causey Basophils/100 WBC (Bld) 0.6 % Normal 0.2-2.0 [facility] Comment on above: Performed By: #### B KVIRUS #### [facility] [address] [place] [address] Dr. Brea Causey EO # 0.2 103/ul Normal 0.0-0.7 [facility] Comment on above: Performed By: #### B KVIRUS #### [facility] [address] [place] [address] Dr. Brea Causey Eosinophils/100 WBC (Bld) 3.5 % Normal 0.9-7.0 [facility] Comment on above: Performed By: #### B KVIRUS #### [facility] [address] [place] [address] Dr. Brea Causey Erythrocyte distribution width (RBC) [Ratio] 13.0 % Normal 11.0-15.0 [facility] Comment on above: Performed By: #### B KVIRUS #### [facility] [address] [place] [address] Dr. Brea Causey Hematocrit (Bld) [Volume fraction] 36.9 % Critically low 42.0-54.0 [facility] Comment on above: Performed By: #### B KVIRUS #### [facility] [address] [place] [address] Dr. Brea Causey Hemoglobin (Bld) [Mass/Vol] 12.0 g/dL Critically low 14.0-18.0 [facility] Comment on above: Performed By: #### B KVIRUS #### [facility] [address] [place] [address] Dr. Brea Causey IG # 0.07 10e3/ul Critically high 0.00-0.03 [facility] Comment on above: Performed By: #### B KVIRUS #### [facility] [address] [address] [address] Brea Causey IG % 1.0 % Critically high 0.0-0.5 [facility] Comment on above: Performed By: #### B KVIRUS #### [facility] [address] [place] [address] Dr. Brea Causey LYMPH # 1.0 103/ul Critically low 1.2-3.8 [facility] Comment on above: Performed By: #### B KVIRUS #### [facility] [address] [place] [address] Dr. Brea Causey Lymphocytes/100 WBC (Bld) 14.2 % Critically low 20.5-60.0 [facility] Comment on above: Performed By: #### B KVIRUS #### [facility] [address] [place] [address] Dr. Brea Causey MANUAL DIFF REQ NO Normal [facility] Comment on above: Performed By: #### B KVIRUS #### [facility] [address] [place] [address] Dr. Brea Causey MCH (RBC) [Entitic mass] 29.1 pg Normal 25.9-34.0 [facility] Comment on above: Performed By: #### B KVIRUS #### [facility] [address] [place] [address] Dr. Brea Causey MCHC (RBC) [Mass/Vol] 32.5 g/dL Normal 29.9-35.2 [facility] Comment on above: Performed By: #### B KVIRUS #### [facility] [address] [place] [address] Dr. Brea Causey MCV (RBC) [Entitic vol] 89.6 fL Normal 80.0-94.0 [facility] Comment on above: Performed By: #### B KVIRUS #### [facility] [address] [place] [address] Dr. Brea Causey MONO # 0.7 103/ul Normal 0.3-0.8 [facility] Comment on above: Performed By: #### B KVIRUS #### [facility] [address] [place], [place] [id number] Dr. Brea Causey Monocytes/100 WBC (Bld) 9.9 % Normal 1.7-12.0 [facility] Comment on above: Performed By: #### B KVIRUS #### [facility] [address] [place] [address] Dr. Brea Causey NEUT # 4.9 103/ul Normal 1.4-6.5 [facility] Comment on above: Performed By: #### B KVIRUS #### [facility] [address] [address] [address] Brea Causey Neutrophils/100 WBC (Bld) 70.8 % Normal 43.0-75.0 [facility] Comment on above: Performed By: #### B KVIRUS #### [facility] [address] [place] [address] Dr. Brea Causey Platelet mean volume (Bld) [Entitic vol] 9.6 fL Normal 9.5-13.5 [facility] Comment on above: Performed By: #### B KVIRUS #### [facility] [address] [place] [address] Dr. Brea Causey PLT 247 103/ul Normal 150-450 [facility] Comment on above: Performed By: #### B KVIRUS #### [facility] [address] [place] [address] Dr. Brea Causey RBC 4.12 106/ul Critically low 4.70-6.10 [facility] Comment on above: Performed By: #### B KVIRUS #### [facility] [address] [place] [address] Dr. Brea Causey WBC 6.9 103/ul Normal 4.0-11.0 [facility] Comment on above: Performed By: #### B KVIRUS #### [facility] [address] [place] [address] Dr. Brea Causey LIPID PROFILEon 02-01-2022 CHOL-HDL RATIO NORM SEE BELOW Normal [facility] Comment on above: Result Comment: 3.3 - 4.4 LOW RISK 4.4 - 7.1 AVERAGE RISK 7.1 - 11.0 MODERATE RISK >11.0 HIGH RISK Performed By: #### C BC #### [facility] [address] [address] [address] Brea Causey Cholesterol [Mass/Vol] 77 mg/dL Normal <=200 [facility] Comment on above: Performed By: #### C BC #### [facility] [address] [address] [address] Brea Causey Cholesterol in HDL [Mass/Vol] 40 mg/dL Normal 40-60 [facility] Comment on above: Performed By: #### C BC #### [facility] [address] [address] [address] Brea Causey Cholesterol in LDL [Mass/Vol] 21.0 mg/dL Normal [facility] Comment on above: Performed By: #### C BC #### [facility] [address] [address] [address] Brea Causey Cholesterol.total/Cho lesterol in HDL [Mass ratio] 1.9 {ratio} Normal [facility] Comment on above: Performed By: #### C BC #### [facility] [address] [address] [address] Brea Causey HDL NORMAL > or = 60 mg/dl - LO W CARDIOVASCULAR RISK <40 mg/dl - HIGH CARDIOVASCULAR RISK Normal [facility] Comment on above: Performed By: #### C BC #### [facility] [address] [address] [address] Brea Causey LDL CALC NORMAL SEE BELOW Normal [facility] Comment on above: Result Comment: <100 mg/dl OPTIMAL 100 - 129 mg/dl NEAR OR ABOVE OPTIMAL 130 - 159 mg/dl BORDERLINE HIGH 160 - 189 mg/dl HIGH >190 mg/dl VERY HIGH Performed By: #### C BC #### [facility] [address] [address] [address] Brea Causey Triglyceride [Mass/Vol] 80 mg/dL Normal <=150 [facility] Comment on above: Performed By: #### C BC #### [facility] [address] [address] [address] Brea Causey VLDL CALC 16.0 mg/dL Normal [facility] Comment on above: Performed By: #### C BC #### [facility] [address] [place] [address] Dr. rBea Causey MAGNESIUMon 02-01-2022 Magnesium [Mass/Vol] 1.5 mg/dL Critically low 1.8-2.4 [facility] Comment on above: Performed By: #### C BC #### [facility] [address] [place] [address] Dr. Brea Causey PHOSPHORUSon 02-01-2022 Phosphate [Mass/Vol] 4.1 mg/dL Normal 2.6-4.7 [facility] Comment on above: Performed By: #### C BC #### [facility] [address] [place] [address] Dr. Brea Causey PROF 14(COMP METB)on 022 Albumin [Mass/Vol] 4.0 g/dL Normal 3.4-5.0 [facility] Comment on above: Performed By: #### C BC #### [facility] [address] [place] [address] Dr. Brea Causey Albumin/Globulin [Mass ratio] 1.3 {ratio} Normal [facility] Comment on above: Performed By: #### C BC #### [facility] [address] [place] [address] Dr. Brea Causey ALP [Catalytic activity/Vol] 162 U/L Critically high 46-116 [facility] Comment on above: Performed By: #### C BC #### [facility] [address] [place] [address] Dr. Brea Causey ALT [Catalytic activity/Vol] 25 U/L Normal 16-63 [facility] Comment on above: Performed By: #### C BC #### [facility] [address] [place] [address] Dr. Brea Causey Anion gap [Moles/Vol] 11.1 mmol/L Normal [facility] Comment on above: Performed By: #### C BC #### [facility] [address] [place] [address] Dr. Brea Causey AST [Catalytic activity/Vol] 16 U/L Normal 15-37 [facility] Comment on above: Performed By: #### C BC #### [facility] [address] [place] [address] Dr. Brea Causey Bilirubin [Mass/Vol] 0.4 mg/dL Normal 0.2-1.0 [facility] Comment on above: Performed By: #### C BC #### [facility] [address] [place] [address] Dr. Brea Causey Calcium [Mass/Vol] 8.2 mg/dL Critically low 8.5-10.1 Th e [facility] Comment on above: Performed By: #### C BC #### [facility] [address] [place] [address] Dr. Brea Causey Chloride [Moles/Vol] 99 mmol/L Normal 98-107 [facility] Comment on above: Performed By: #### C BC #### [facility] [address] [place] [address] Dr. Brea Causey CO2 [Moles/Vol] 28.1 mmol/L Normal 21.0-32.0 [facility] Comment on above: Performed By: #### C BC #### [facility] [address] [place] [address] Dr. Brea Causey Creatinine [Mass/Vol] 1.13 mg/dL Normal 0.70-1.30 [facility] Comment on above: Performed By: #### C BC #### [facility] [address] [place] [address] Dr. Brea Causey EGFR-AF MONTENEGRIN >60 Normal >=60 [facility] Comment on above: Performed By: #### C BC #### [facility] [address] [place] [address] Dr. Brea Causey EGFR-NON AF MONTENEGRIN >60 Normal >=60 [facility] Comment on above: Performed By: #### C BC #### [facility] [address] [place] [address] Dr. Brea Causey Globulin (S) [Mass/Vol] 3.1 g/dL Normal [facility] Comment on above: Performed By: #### C BC #### [facility] [address] [address] [address] Brae Causey Glucose [Mass/Vol] 177 mg/dL Critically high 74-106 [facility] Comment on above: Performed By: #### C BC #### [facility] [address] [address] [address] Brea Causey Potassium [Moles/Vol] 5.2 mmol/L Critically high 3.5-5.1 [facility] Comment on above: Performed By: #### C BC #### [facility] [address] [address] [address] Brea Causey Protein [Mass/Vol] 7.1 g/dL Normal 6.4-8.2 [facility] Comment on above: Performed By: #### C BC #### [facility] [address] [place] [address] Dr. Brea Causey Sodium [Moles/Vol] 133 mmol/L Critically low 136-145 [facility] Comment on above: Performed By: #### C BC #### [facility] [address] [place] [address] Dr. Brea Causey Urea nitrogen [Mass/Vol] 12.0 mg/dL Normal 7.0-18.0 [facility] Comment on above: Performed By: #### C BC #### [facility] [address] [place] [address] Dr. Brea Causey Urea nitrogen/Creatinine [Mass ratio] 10.6 mg/mg Normal [facility] Comment on above: Performed By: #### C BC #### [facility] [address] [address] [address] Brea Causey URIC ACID SERUMon 02-01-2022 Urate [Mass/Vol] 7.7 mg/dL Critically high 3.5-7.2 [facility] Comment on above: Performed By: #### C BC #### [facility] [address] [place] [address] Dr. Brea Causey FK506 (TACROLIMUS) WHOLE BLO ODon 01-06-2022 Tacrolimus (FK506), Blood 11.4 ng/mL Normal 2.0-20.0 [facility] Comment on above: Result Comment: Trou gh (immediately following transplant) 15.0 . Trough (steady state, 2 weeks or more after transplant): 3.0 - 8.0 . Performed by LC-MS/MS technology. Performed By: #### B KVIRUS #### [facility] [address] [place] [address] Dr. Brea Causey BILIRUBIN CONJUGATED (DIRECT )on 01-04-2022 BILI, CONJUGATED 0.1 mg/dL Normal 0.0-0.2 [facility] Comment on above: Performed By: #### U CLINT, CMP, LIPID, DBIL, PHOS, MG #### [facility] [address] [place] [address] Dr. Brea Causey BOX TEST SENT OUTon 01-05-20 22 SENT TO REF LAB 01/04/2022 Normal [facility] Comment on above: Performed By: #### U CLINT, CMP, LIPID, DBIL, PHOS, MG #### [facility] [address] [place] [address] Dr. Brea Causey CBC AUTO DIFFon 01-04-2022 BASO # 0.0 103/ul Normal 0.0-0.1 [facility] Comment on above: Performed By: #### U CLINT, CMP, LIPID, DBIL, PHOS, MG #### [facility] [address] [place] [address] Dr. Brea Causey Basophils/100 WBC (Bld) 0.5 % Normal 0.2-2.0 [facility] Comment on above: Performed By: #### U CLINT, CMP, LIPID, DBIL, PHOS, MG #### [facility] [address] [place] [address] Dr. Brea Causey EO # 0.3 103/ul Normal 0.0-0.7 [facility] Comment on above: Performed By: #### U CLINT, CMP, LIPID, DBIL, PHOS, MG #### [facility] [address] [place] [address] Dr. Brea Causey Eosinophils/100 WBC (Bld) 3.9 % Normal 0.9-7.0 [facility] Comment on above: Performed By: #### U CLINT, CMP, LIPID, DBIL, PHOS, MG #### [facility] [address] [place] [address] Dr. Brea Causey Erythrocyte distribution width (RBC) [Ratio] 13.1 % Normal 11.0-15.0 [facility] Comment on above: Performed By: #### U CLINT, CMP, LIPID, DBIL, PHOS, MG #### [facility] [address] [place] [address] Dr. Brea Causey Hematocrit (Bld) [Volume fraction] 37.4 % Critically low 42.0-54.0 [facility] Comment on above: Performed By: #### U CLINT, CMP, LIPID, DBIL, PHOS, MG #### [facility] [address] [place] [address] Dr. Brea Causey Hemoglobin (Bld) [Mass/Vol] 12.0 g/dL Critically low 14.0-18.0 [facility] Comment on above: Performed By: #### U CLINT, CMP, LIPID, DBIL, PHOS, MG #### [facility] [address] [place] [address] Dr. Brea Causey IG # 0.07 10e3/ul Critically high 0.00-0.03 [facility] Comment on above: Performed By: #### U CLINT, CMP, LIPID, DBIL, PHOS, MG #### [facility] [address] [place] [address] Dr. Brea Causey IG % 1.1 % Critically high 0.0-0.5 [facility] Comment on above: Performed By: #### U CLINT, CMP, LIPID, DBIL, PHOS, MG #### [facility] [address] [place] [address] Dr. Brea Causey LYMPH # 0.8 103/ul Critically low 1.2-3.8 [facility] Comment on above: Performed By: #### U CLINT, CMP, LIPID, DBIL, PHOS, MG #### [facility] [address] [place] [address] Dr. Brea Causey Lymphocytes/100 WBC (Bld) 12.2 % Critically low 20.5-60.0 [facility] Comment on above: Performed By: #### U CLINT, CMP, LIPID, DBIL, PHOS, MG #### [facility] [address] [place] [address] Dr. Brea Causey MANUAL DIFF REQ NO Normal [facility] Comment on above: Performed By: #### U CLINT, CMP, LIPID, DBIL, PHOS, MG #### [facility] [address] [place] [address] Dr. Brea Causey MCH (RBC) [Entitic mass] 29.1 pg Normal 25.9-34.0 [facility] Comment on above: Performed By: #### U CLINT, CMP, LIPID, DBIL, PHOS, MG #### [facility] [address] [place] [address] Dr. Brea Causey MCHC (RBC) [Mass/Vol] 32.1 g/dL Normal 29.9-35.2 [facility] Comment on above: Performed By: #### U CLINT, CMP, LIPID, DBIL, PHOS, MG #### [facility] [address] [place] [address] Dr. Brea Causey MCV (RBC) [Entitic vol] 90.6 fL Normal 80.0-94.0 [facility] Comment on above: Performed By: #### U CLINT, CMP, LIPID, DBIL, PHOS, MG #### [facility] [address] [place] [address] Dr. Brea Causey MONO # 0.5 103/ul Normal 0.3-0.8 [facility] Comment on above: Performed By: #### U CLINT, CMP, LIPID, DBIL, PHOS, MG #### [facility] [address] [place] [address] Dr. Brea Causey Monocytes/100 WBC (Bld) 8.0 % Normal 1.7-12.0 [facility] Comment on above: Performed By: #### U CLINT, CMP, LIPID, DBIL, PHOS, MG #### [facility] [address] [address] [address] Brea Causey NEUT # 5.0 103/ul Normal 1.4-6.5 [facility] Comment on above: Performed By: #### U CLINT, CMP, LIPID, DBIL, PHOS, MG #### [facility] [address] [address] [address] Brea Causey Neutrophils/100 WBC (Bld) 74.3 % Normal 43.0-75.0 [facility] Comment on above: Performed By: #### U CLINT, CMP, LIPID, DBIL, PHOS, MG #### [facility] [address] [address] [address] Brea Causey Platelet mean volume (Bld) [Entitic vol] 9.5 fL Normal 9.5-13.5 [facility] Comment on above: Performed By: #### U CLINT, CMP, LIPID, DBIL, PHOS, MG #### [facility] [address] [address] [address] Brea Causey PLT 243 103/ul Normal 150-450 [facility] Comment on above: Performed By: #### U CLINT, CMP, LIPID, DBIL, PHOS, MG #### [facility] [address] [place] [address] Dr. Brea Causey RBC 4.13 106/ul Critically low 4.70-6.10 [facility] Comment on above: Performed By: #### U CLINT, CMP, LIPID, DBIL, PHOS, MG #### [facility] [address] [place] [address] Dr. Brea Causey WBC 6.7 103/ul Normal 4.0-11.0 [facility] Comment on above: Performed By: #### U CLINT, CMP, LIPID, DBIL, PHOS, MG #### [facility] [address] [place] [address] Dr. Brea Causey LIPID PROFILEon 01-04-2022 CHOL-HDL RATIO NORM SEE BELOW Normal [facility] Comment on above: Result Comment: 3.3 - 4.4 LOW RISK 4.4 - 7.1 AVERAGE RISK 7.1 - 11.0 MODERATE RISK >11.0 HIGH RISK Performed By: #### U CLINT, CMP, LIPID, DBIL, PHOS, MG #### [facility] [address] [address] [address] Brea Causey Cholesterol [Mass/Vol] 81 mg/dL Normal <=200 [facility] Comment on above: Performed By: #### U CLINT, CMP, LIPID, DBIL, PHOS, MG #### [facility] [address] [place] [address] Dr. Brea Causey Cholesterol in HDL [Mass/Vol] 43 mg/dL Normal 40-60 [facility] Comment on above: Performed By: #### U CLINT, CMP, LIPID, DBIL, PHOS, MG #### [facility] [address] [place] [address] Dr. Brea Causey Cholesterol in LDL [Mass/Vol] 26.0 mg/dL Normal [facility] Comment on above: Performed By: #### U CLINT, CMP, LIPID, DBIL, PHOS, MG #### [facility] [address] [place] [address] Dr. Brea Causey Cholesterol.total/Cho lesterol in HDL [Mass ratio] 1.9 {ratio} Normal [facility] Comment on above: Performed By: #### U CLINT, CMP, LIPID, DBIL, PHOS, MG #### [facility] [address] [place] [address] Dr. Brea Causey HDL NORMAL > or = 60 mg/dl - LO W CARDIOVASCULAR RISK <40 mg/dl - HIGH CARDIOVASCULAR RISK Normal [facility] Comment on above: Performed By: #### U CLINT, CMP, LIPID, DBIL, PHOS, MG #### [facility] [address] [place] [address] Dr. Brea Causey LDL CALC NORMAL SEE BELOW Normal [facility] Comment on above: Result Comment: <100 mg/dl OPTIMAL 100 - 129 mg/dl NEAR OR ABOVE OPTIMAL 130 - 159 mg/dl BORDERLINE HIGH 160 - 189 mg/dl HIGH >190 mg/dl VERY HIGH Performed By: #### U CLINT, CMP, LIPID, DBIL, PHOS, MG #### [facility] [address] [address] [address] Brea Causey Triglyceride [Mass/Vol] 60 mg/dL Normal <=150 [facility] Comment on above: Performed By: #### U CLINT, CMP, LIPID, DBIL, PHOS, MG #### [facility] [address] [address] [address] Brea Causey VLDL CALC 12.0 mg/dL Normal [facility] Comment on above: Performed By: #### U CLINT, CMP, LIPID, DBIL, PHOS, MG #### [facility] [address] [place] [address] Dr. Brea Causey MAGNESIUMon 01-04-2022 Magnesium [Mass/Vol] 1.4 mg/dL Critically low 1.8-2.4 [facility] Comment on above: Performed By: #### U CLINT, CMP, LIPID, DBIL, PHOS, MG #### [facility] [address] [place] [address] Dr. Brea Causey PHOSPHORUSon 01-04-2022 Phosphate [Mass/Vol] 4.4 mg/dL Normal 2.6-4.7 [facility] Comment on above: Performed By: #### U CLINT, CMP, LIPID, DBIL, PHOS, MG #### [facility] [address] [place] [address] Dr. Brea Causey PROF 14(COMP METB)on 022 Albumin [Mass/Vol] 3.9 g/dL Normal 3.4-5.0 [facility] Comment on above: Performed By: #### U CLINT, CMP, LIPID, DBIL, PHOS, MG #### [facility] [address] [place] [address] Dr. Brea Causey Albumin/Globulin [Mass ratio] 1.2 {ratio} Normal [facility] Comment on above: Performed By: #### U CLINT, CMP, LIPID, DBIL, PHOS, MG #### [facility] [address] [place] [address] Dr. Brea Causey ALP [Catalytic activity/Vol] 155 U/L Critically high 46-116 [facility] Comment on above: Performed By: #### U CLINT, CMP, LIPID, DBIL, PHOS, MG #### [facility] [address] [place] [address] Dr. Brea Causey ALT [Catalytic activity/Vol] 27 U/L Normal 16-63 [facility] Comment on above: Performed By: #### U CLINT, CMP, LIPID, DBIL, PHOS, MG #### [facility] [address] [place] [address] Dr. Brea Causey Anion gap [Moles/Vol] 14.6 mmol/L Normal [facility] Comment on above: Performed By: #### U CLINT, CMP, LIPID, DBIL, PHOS, MG #### [facility] [address] [place] [address] Dr. Brea Causey AST [Catalytic activity/Vol] 17 U/L Normal 15-37 [facility] Comment on above: Performed By: #### U CLINT, CMP, LIPID, DBIL, PHOS, MG #### [facility] [address] [place] [address] Dr. Brea Causey Bilirubin [Mass/Vol] 0.3 mg/dL Normal 0.2-1.0 [facility] Comment on above: Performed By: #### U CLINT, CMP, LIPID, DBIL, PHOS, MG #### [facility] [address] [place] [address] Dr. Brea Causey Calcium [Mass/Vol] 8.1 mg/dL Critically low 8.5-10.1 [facility] Comment on above: Performed By: #### U CLINT, CMP, LIPID, DBIL, PHOS, MG #### [facility] [address] [place] [address] Dr. Brea Causey Chloride [Moles/Vol] 99 mmol/L Normal 98-107 [facility] Comment on above: Performed By: #### U CLINT, CMP, LIPID, DBIL, PHOS, MG #### [facility] [address] [place] [address] Dr. Brea Causey CO2 [Moles/Vol] 25.0 mmol/L Normal 21.0-32.0 [facility] Comment on above: Performed By: #### U CLINT, CMP, LIPID, DBIL, PHOS, MG #### [facility] [address] [place] [address] Dr. Brea Causey Creatinine [Mass/Vol] 1.05 mg/dL Normal 0.70-1.30 [facility] Comment on above: Performed By: #### U CLINT, CMP, LIPID, DBIL, PHOS, MG #### [facility] [address] [address] [address] Brea Causey EGFR-AF MONTENEGRIN >60 Normal >=60 [facility] Comment on above: Performed By: #### U CLINT, CMP, LIPID, DBIL, PHOS, MG #### [facility] [address] [place] [address] Dr. Brea Causey EGFR-NON AF MONTENEGRIN >60 Normal >=60 [facility] Comment on above: Performed By: #### U CLINT, CMP, LIPID, DBIL, PHOS, MG #### [facility] [address] [place] [address] Dr. Brea Causey Globulin (S) [Mass/Vol] 3.2 g/dL Normal [facility] Comment on above: Performed By: #### U CLINT, CMP, LIPID, DBIL, PHOS, MG #### [facility] [address] [address] [address] Brea Causey Glucose [Mass/Vol] 177 mg/dL Critically high 74-106 [facility] Comment on above: Performed By: #### U CLINT, CMP, LIPID, DBIL, PHOS, MG #### [facility] [address] [address] [address] Brea Causey Potassium [Moles/Vol] 4.6 mmol/L Normal 3.5-5.1 [facility] Comment on above: Performed By: #### U CLINT, CMP, LIPID, DBIL, PHOS, MG #### [facility] [address] [place] [address] Dr. Brea Causey Protein [Mass/Vol] 7.1 g/dL Normal 6.4-8.2 [facility] Comment on above: Performed By: #### U CLINT, CMP, LIPID, DBIL, PHOS, MG #### [facility] [address] [place] [address] Dr. Brea Causey Sodium [Moles/Vol] 134 mmol/L Critically low 136-145 [facility] Comment on above: Performed By: #### U CLINT, CMP, LIPID, DBIL, PHOS, MG #### [facility] [address] [place] [address] Dr. Brea Causey Urea nitrogen [Mass/Vol] 14.0 mg/dL Normal 7.0-18.0 [facility] Comment on above: Performed By: #### U CLINT, CMP, LIPID, DBIL, PHOS, MG #### [facility] [address] [place] [address] Dr. Brea Causey Urea nitrogen/Creatinine [Mass ratio] 13.3 mg/mg Normal [facility] Comment on above: Performed By: #### U CLINT, CMP, LIPID, DBIL, PHOS, MG #### [facility] [address] [place] [address] Dr. Brea Causey URIC ACID SERUMon 01-04-2022 Urate [Mass/Vol] 7.6 mg/dL Critically high 3.5-7.2 [facility] Comment on above: Performed By: #### U CLINT, CMP, LIPID, DBIL, PHOS, MG #### [facility] [address] [place] [address] Dr. Brea Causey BK VIRUS PCR QUANTon 022 BKV DNA QUANT PCR PLASMA Negative Normal Negative [facility] Comment on above: Result Comment: No B K DNA detected. . The linear range of the assay is 22 - 100,000,000 IU/mL. Performed By: #### B KVIRUS #### [facility] [address] [place] [address] Dr. Brea Causey Log10 BKV DNA Plasma Normal [facility] Comment on above: Performed By: #### B KVIRUS #### [facility] [address] [place] [address] Dr. Brea Causey FK506 (TACROLIMUS) WHOLE BLO ODon 12-03-2021 Tacrolimus (FK506), Blood 5.6 ng/mL Normal 2.0-20.0 [facility] Comment on above: Result Comment: Trou gh (immediately following transplant) 15.0 . Trough (steady state, 2 weeks or more after transplant): 3.0 - 8.0 . Performed by LC-MS/MS technology. Performed By: #### U CLINT, CMP, LIPID, DBIL, PHOS, MG #### [facility] [address] [place] [address] Dr. Brea Causey TESTOSTERONE, FREE,DIRECT, T OTALon 12-03-2021 Free Testosterone(Direct) 7.5 pg/mL Normal 6.6-18.[address] [facility] Comment on above: Result Comment: Perf ormed at: BN Performed By: #### U CLINT, CMP, LIPID, DBIL, PHOS, MG #### [facility] [address] [place] [address] Dr. Brea Causey Testosterone [Mass/Vol] 467 ng/dL Normal 264-916 [facility] Comment on above: Result Comment: Adul t male reference interval is based on a population of healthy nonobese males (BMI <30) between 19 and 39 years old. Steven et.al. JCEM 2017,102;5884-1074. PMID: [id number]. Performed at: CB Performed By: #### U CLINT, CMP, LIPID, DBIL, PHOS, MG #### [facility] [address] [place] [address] Dr. Brea Causey BILIRUBIN CONJUGATED (DIRECT )on 11-30-2021 BILI, CONJUGATED 0.2 mg/dL Normal 0.0-0.2 [facility] Comment on above: Performed By: #### B KVIRUS #### [facility] [address] [place] [address] Dr. Brea Causey CBC AUTO DIFFon 11-30-2021 BASO # 0.0 103/ul Normal 0.0-0.1 [facility] Comment on above: Performed By: #### U CLINT, CMP, LIPID, DBIL, PHOS, MG #### [facility] [address] [place] [address] Dr. Brea Causey Basophils/100 WBC (Bld) 0.6 % Normal 0.2-2.0 [facility] Comment on above: Performed By: #### U CLINT, CMP, LIPID, DBIL, PHOS, MG #### [facility] [address] [place] [address] Dr. Brea Causey EO # 0.2 103/ul Normal 0.0-0.7 [facility] Comment on above: Performed By: #### U CLINT, CMP, LIPID, DBIL, PHOS, MG #### [facility] [address] [place] [address] Dr. Brea Causey Eosinophils/100 WBC (Bld) 2.7 % Normal 0.9-7.0 [facility] Comment on above: Performed By: #### U CLINT, CMP, LIPID, DBIL, PHOS, MG #### [facility] [address] [place] [address] Dr. Brea Causey Erythrocyte distribution width (RBC) [Ratio] 13.0 % Normal 11.0-15.0 [facility] Comment on above: Performed By: #### U CLINT, CMP, LIPID, DBIL, PHOS, MG #### [facility] [address] [place] [address] Dr. Brea Causey Hematocrit (Bld) [Volume fraction] 37.6 % Critically low 42.0-54.0 [facility] Comment on above: Performed By: #### U CLINT, CMP, LIPID, DBIL, PHOS, MG #### [facility] [address] [place] [address] Dr. Brea Causey Hemoglobin (Bld) [Mass/Vol] 12.4 g/dL Critically low 14.0-18.0 [facility] Comment on above: Performed By: #### U CLINT, CMP, LIPID, DBIL, PHOS, MG #### [facility] [address] [place] [address] Dr. Brea Causey IG # 0.06 10e3/ul Critically high 0.00-0.03 [facility] Comment on above: Performed By: #### U CLINT, CMP, LIPID, DBIL, PHOS, MG #### [facility] [address] [address] [address] Brae Causey IG % 0.9 % Critically high 0.0-0.5 [facility] Comment on above: Performed By: #### U CLINT, CMP, LIPID, DBIL, PHOS, MG #### [facility] [address] [address] [address] Brea Causey LYMPH # 1.0 103/ul Critically low 1.2-3.8 [facility] Comment on above: Performed By: #### U CLINT, CMP, LIPID, DBIL, PHOS, MG #### [facility] [address] [place] [address] Dr. Brea Causey Lymphocytes/100 WBC (Bld) 14.6 % Critically low 20.5-60.0 [facility] Comment on above: Performed By: #### U CLINT, CMP, LIPID, DBIL, PHOS, MG #### [facility] [address] [address] [address] Brea Causey MANUAL DIFF REQ NO Normal [facility] Comment on above: Performed By: #### U CLINT, CMP, LIPID, DBIL, PHOS, MG #### [facility] [address] [place] [address] Dr. Brea Causey MCH (RBC) [Entitic mass] 29.4 pg Normal 25.9-34.0 [facility] Comment on above: Performed By: #### U CLINT, CMP, LIPID, DBIL, PHOS, MG #### [facility] [address] [address] [address] Brea Causey MCHC (RBC) [Mass/Vol] 33.0 g/dL Normal 29.9-35.2 [facility] Comment on above: Performed By: #### U CLINT, CMP, LIPID, DBIL, PHOS, MG #### [facility] [facility] [address] [place] [address] Dr. Brea Causey MCV (RBC) [Entitic vol] 89.1 fL Normal 80.0-94.0 [facility] Comment on above: Performed By: #### U CLINT, CMP, LIPID, DBIL, PHOS, MG #### [facility] [address] [place] [address] Dr. Brea Causey MONO # 0.7 103/ul Normal 0.3-0.8 [facility] Comment on above: Performed By: #### U CLINT, CMP, LIPID, DBIL, PHOS, MG #### [facility] [address] [place] [address] Dr. Brea Causey Monocytes/100 WBC (Bld) 10.0 % Normal 1.7-12.0 [facility] Comment on above: Performed By: #### U CLINT, CMP, LIPID, DBIL, PHOS, MG #### [facility] [address] [place] [address] Dr. Brea Causey NEUT # 4.8 103/ul Normal 1.4-6.5 [facility] Comment on above: Performed By: #### U CLINT, CMP, LIPID, DBIL, PHOS, MG #### [facility] [address] [place] [address] Dr. Brea Causey Neutrophils/100 WBC (Bld) 71.2 % Normal 43.0-75.0 [facility] Comment on above: Performed By: #### U CLINT, CMP, LIPID, DBIL, PHOS, MG #### [facility] [address] [place] [address] Dr. Brea Causey Platelet mean volume (Bld) [Entitic vol] 9.0 fL Critically low 9.5-13.5 [facility] Comment on above: Performed By: #### U CLINT, CMP, LIPID, DBIL, PHOS, MG #### [facility] [address] [place] [address] Dr. Brea Causey PLT 280 103/ul Normal 150-450 [facility] Comment on above: Performed By: #### U CLINT, CMP, LIPID, DBIL, PHOS, MG #### [facility] [address] [address] [address] Brea Causey RBC 4.22 106/ul Critically low 4.70-6.10 [facility] Comment on above: Performed By: #### U CLINT, CMP, LIPID, DBIL, PHOS, MG #### [facility] [address] [address] [address] Brea Causey WBC 6.7 103/ul Normal 4.0-11.0 [facility] Comment on above: Performed By: #### U CLINT, CMP, LIPID, DBIL, PHOS, MG #### [facility] [address] [address] [address] Brea Causey GLYCOHEMOGLOBIN A1Con 2021 ADA RECOMMENDATION SEE BELOW Normal [facility] Comment on above: Result Comment: ADA RECOMMENDED LIMIT 4.0 - 6.0 ADA THERAPEUTIC TARGET < 7.0 ACTION SUGGESTED > 7.0 Performed By: #### B KVIRUS #### [facility] [address] [place] [address] Dr. Brea Causey Glucose [Mass/Vol] 171 mg/dL Normal [facility] Comment on above: Performed By: #### B KVIRUS #### [facility] [address] [place] [address] Dr. Brea Causey HbA1c (Bld) [Mass fraction] 7.6 % Critically high 4.5-6.2 [facility] Comment on above: Performed By: #### B KVIRUS #### [facility] [address] [place] [address] Dr. Brea Causey LIPID PROFILEon 11-30-2021 CHOL-HDL RATIO NORM SEE BELOW Normal [facility] Comment on above: Result Comment: 3.3 - 4.4 LOW RISK 4.4 - 7.1 AVERAGE RISK 7.1 - 11.0 MODERATE RISK >11.0 HIGH RISK Performed By: #### C BC #### [facility] [address] [place] [address] Dr. Brea Causey Cholesterol [Mass/Vol] 75 mg/dL Normal <=200 [facility] Comment on above: Performed By: #### C BC #### [facility] [address] [place], [place] [address] Dr. Brea Causey Cholesterol in HDL [Mass/Vol] 41 mg/dL Normal 40-60 [facility] Comment on above: Performed By: #### C BC #### [facility] [address] [place], [place] [address] Dr. Brea Causey Cholesterol in LDL [Mass/Vol] 18.6 mg/dL Normal [facility] Comment on above: Performed By: #### C BC #### [facility] [address] [address] [address] Brea Causey Cholesterol.total/Cho lesterol in HDL [Mass ratio] 1.8 {ratio} Normal [facility] Comment on above: Performed By: #### C BC #### [facility] [address] [address] [address] Brea Causey HDL NORMAL > or = 60 mg/dl - LO W CARDIOVASCULAR RISK <40 mg/dl - HIGH CARDIOVASCULAR RISK Normal [facility] Comment on above: Performed By: #### C BC #### [facility] [address] [address] [address] Brea Causey LDL CALC NORMAL SEE BELOW Normal [facility] Comment on above: Result Comment: <100 mg/dl OPTIMAL 100 - 129 mg/dl NEAR OR ABOVE OPTIMAL 130 - 159 mg/dl BORDERLINE HIGH 160 - 189 mg/dl HIGH >190 mg/dl VERY HIGH Performed By: #### C BC #### [facility] [address] [address] [address] Brea Causey Triglyceride [Mass/Vol] 77 mg/dL Normal <=150 [facility] Comment on above: Performed By: #### C BC #### [facility] [address] [address] [address] Brea Causey VLDL CALC 15.4 mg/dL Normal [facility] Comment on above: Performed By: #### C BC #### [facility] [address] [address] [address] Brea Causey MAGNESIUMon 11-30-2021 Magnesium [Mass/Vol] 1.4 mg/dL Critically low 1.8-2.4 [facility] Comment on above: Performed By: #### B KVIRUS #### [facility] [address] [place] [address] Dr. Brea Causey PHOSPHORUSon 11-30-2021 Phosphate [Mass/Vol] 4.1 mg/dL Normal 2.6-4.7 [facility] Comment on above: Performed By: #### C BC #### [facility] [address] [place] [address] Dr. Brea Causey PROF 14(COMP METB)on 022 Albumin [Mass/Vol] 4.2 g/dL Normal 3.4-5.0 [facility] Comment on above: Performed By: #### C BC #### [facility] [address] [place] [address] Dr. Brea Causey Albumin/Globulin [Mass ratio] 1.3 {ratio} Normal [facility] Comment on above: Performed By: #### C BC #### [facility] [address] [place] [address] Dr. Brea Causey ALP [Catalytic activity/Vol] 148 U/L Critically high 46-116 [facility] Comment on above: Performed By: #### C BC #### [facility] [address] [place] [address] Dr. Brea Causey ALT [Catalytic activity/Vol] 36 U/L Normal 16-63 [facility] Comment on above: Performed By: #### C BC #### [facility] [address] [place] [address] Dr. Brea Causey Anion gap [Moles/Vol] 14.7 mmol/L Normal [facility] Comment on above: Performed By: #### C BC #### [facility] [address] [place] [address] Dr. Brea Causey AST [Catalytic activity/Vol] 21 U/L Normal 15-37 [facility] Comment on above: Performed By: #### C BC #### [facility] [address] [place] [address] Dr. Brea Causey Bilirubin [Mass/Vol] 0.4 mg/dL Normal 0.2-1.0 [facility] Comment on above: Performed By: #### C BC #### [facility] [address] [place] [address] Dr. Brea Causey Calcium [Mass/Vol] 8.3 mg/dL Critically low 8.5-10.1 [facility] Comment on above: Performed By: #### C BC #### [facility] [address] [place] [address] Dr. Brea Causey Chloride [Moles/Vol] 98 mmol/L Normal 98-107 [facility] Comment on above: Performed By: #### C BC #### [facility] [address] [place] [address] Dr. Brea Causey CO2 [Moles/Vol] 27.2 mmol/L Normal 21.0-32.0 [facility] Comment on above: Performed By: #### C BC #### [facility] [address] [place] [address] Dr. Brea Causey Creatinine [Mass/Vol] 1.10 mg/dL Normal 0.70-1.30 [facility] Comment on above: Performed By: #### C BC #### [facility] [address] [place] [address] Dr. Brea Causey EGFR-AF MONTENEGRIN >60 Normal >=60 [facility] Comment on above: Performed By: #### C BC #### [facility] [address] [place] [address] Dr. Brea Causey EGFR-NON AF MONTENEGRIN >60 Normal >=60 [facility] Comment on above: Performed By: #### C BC #### [facility] [address] [place] [address] Dr. Brea Causey Globulin (S) [Mass/Vol] 3.2 g/dL Normal [facility] Comment on above: Performed By: #### C BC #### [facility] [address] [place] [address] Dr. Brea Causey Glucose [Mass/Vol] 173 mg/dL Critically high 74-106 [facility] Comment on above: Performed By: #### C BC #### [facility] [address] [address] [address] Brea Causey Potassium [Moles/Vol] 4.9 mmol/L Normal 3.5-5.1 [facility] Comment on above: Performed By: #### C BC #### [facility] [address] [address] [address] Brea Causey Protein [Mass/Vol] 7.4 g/dL Normal 6.4-8.2 [facility] Comment on above: Performed By: #### C BC #### [facility] [address] [address] [address] Brea Causey Sodium [Moles/Vol] 135 mmol/L Critically low 136-145 [facility] Comment on above: Performed By: #### C BC #### [facility] [address] [place] [address] Dr. Brea Causey Urea nitrogen [Mass/Vol] 14.0 mg/dL Normal 7.0-18.0 [facility] Comment on above: Performed By: #### C BC #### [facility] [address] [place] [address] Dr. Brea Causey Urea nitrogen/Creatinine [Mass ratio] 12.7 mg/mg Normal [facility] Comment on above: Performed By: #### C BC #### [facility] [address] [place] [address] Dr. Brea Causey URIC ACID SERUMon 11-30-2021 Urate [Mass/Vol] 7.8 mg/dL Critically high 3.5-7.2 [facility] Comment on above: Performed By: #### C BC #### [facility] [address] [place] [address] Dr. Brea Causey BNPon 11-14-2021 Natriuretic peptide B (Bld) [Mass/Vol] 350.0 pg/mL Normal <=900.0 [facility] Comment on above: Performed By: #### C BC #### [facility] [address] [place] [address] Dr. Brea Causey CBC AUTO DIFFon 11-14-2021 BASO # 0.0 103/ul Normal 0.0-0.1 [facility] Comment on above: Performed By: #### C BC #### [facility] [address] [place] [address] Dr. Brea Causey Basophils/100 WBC (Bld) 0.1 % Critically low 0.2-2.0 [facility] Comment on above: Performed By: #### C BC #### [facility] [address] [place] [address] Dr. Brea Causey EO # 0.2 103/ul Normal 0.0-0.7 [facility] Comment on above: Performed By: #### C BC #### [facility] [address] [place] [address] Dr. Brea Causey Eosinophils/100 WBC (Bld) 1.4 % Normal 0.9-7.0 [facility] Comment on above: Performed By: #### C BC #### [facility] [address] [place] [address] Dr. Brea Causey Erythrocyte distribution width (RBC) [Ratio] 13.1 % Normal 11.0-15.0 [facility] Comment on above: Performed By: #### C BC #### [facility] [address] [place] [address] Dr. Brea Causey Hematocrit (Bld) [Volume fraction] 39.4 % Critically low 42.0-54.0 [facility] Comment on above: Performed By: #### C BC #### [facility] [address] [place] [address] Dr. Brea Causey Hemoglobin (Bld) [Mass/Vol] 13.2 g/dL Critically low 14.0-18.0 [facility] Comment on above: Performed By: #### C BC #### [facility] [address] [place] [address] Dr. Brea Causey IG # 0.11 10e3/ul Critically high 0.00-0.03 [facility] Comment on above: Performed By: #### C BC #### [facility] [address] [place] [address] Dr. Brea Causey IG % 0.6 % Critically high 0.0-0.5 [facility] Comment on above: Performed By: #### C BC #### [facility] [address] [place] [address] Dr. Brea Causey LYMPH # 1.1 103/ul Critically low 1.2-3.8 [facility] Comment on above: Performed By: #### C BC #### [facility] [address] [place] [address] Dr. Brea Causey Lymphocytes/100 WBC (Bld) 6.7 % Critically low 20.5-60.0 [facility] Comment on above: Performed By: #### C BC #### [facility] [address] [place] [address] Dr. Brea Causey MANUAL DIFF REQ NO Normal [facility] Comment on above: Performed By: #### C BC #### [facility] [address] [place] [address] Dr. Brea Causey MCH (RBC) [Entitic mass] 29.5 pg Normal 25.9-34.0 [facility] Comment on above: Performed By: #### C BC #### [facility] [address] [place] [address] Dr. Brea Causey MCHC (RBC) [Mass/Vol] 33.5 g/dL Normal 29.9-35.2 [facility] Comment on above: Performed By: #### C BC #### [facility] [address] [place] [address] Dr. Brea Causey MCV (RBC) [Entitic vol] 88.1 fL Normal 80.0-94.0 [facility] Comment on above: Performed By: #### C BC #### [facility] [address] [place] [address] Dr. Brea Causey MONO # 1.5 103/ul Critically high 0.3-0.8 [facility] Comment on above: Performed By: #### C BC #### [facility] [address] [place] [address] Dr. Brea Causey Monocytes/100 WBC (Bld) 8.6 % Normal 1.7-12.0 [facility] Comment on above: Performed By: #### C BC #### [facility] [address] [address] [address] Brea Causey NEUT # 14.0 103/ul Critically high 1.4-6.5 [facility] Comment on above: Performed By: #### C BC #### [facility] [address] [place] [address] Dr. Brea Causey Neutrophils/100 WBC (Bld) 82.6 % Critically high 43.0-75.0 [facility] Comment on above: Performed By: #### C BC #### [facility] [address] [place] [address] Dr. Brea Causey Platelet mean volume (Bld) [Entitic vol] 9.5 fL Normal 9.5-13.5 [facility] Comment on above: Performed By: #### C BC #### [facility] [address] [place] [address] Dr. Brea Causey PLT 303 103/ul Normal 150-450 [facility] Comment on above: Performed By: #### C BC #### [facility] [address] [place] [address] Dr. Brea Causey RBC 4.47 106/ul Critically low 4.70-6.10 [facility] Comment on above: Performed By: #### C BC #### [facility] [address] [place] [address] Dr. Brea Causey WBC 17.0 103/ul Critically high 4.0-11.0 [facility] Comment on above: Performed By: #### C BC #### [facility] [address] [place] [address] Dr. Brea Causey Covid-19 PCR ([facility])on SARS-CoV-2 (COVID-19) RNA ISI+probe Ql (Unsp spec) Not detected Normal NOT DETECTED [facility] Comment on above: Result Comment: When diagnostic [...] for this test is supported by the [employer] of Health and Human Service's declaration that [...] CLINT, CMP, LIPID, DBIL, PHOS, MG #### [facility] [address] [place] [address] Dr. Brea Causey ER URINE PROFILEon 2 Bilirubin Ql (U) Negative Normal NEGATIVE [facility] Comment on above: Performed By: #### U CLINT, CMP, LIPID, DBIL, PHOS, MG #### [facility] [address] [place] [address] Dr. Brea Causey Clarity (U) CLEAR Normal CLEAR [facility] Comment on above: Performed By: #### U CLINT, CMP, LIPID, DBIL, PHOS, MG #### [facility] [address] [place] [address] Dr. Brea Causey Color (U) YELLOW Normal YELLOW [facility] Comment on above: Performed By: #### U CLINT, CMP, LIPID, DBIL, PHOS, MG #### [facility] [address] [place] [address] Dr. Brea Causey ERUAHD A micrscopic examination will be performed if indicated. Normal [facility] Comment on above: Performed By: #### U CLINT, CMP, LIPID, DBIL, PHOS, MG #### [facility] [address] [place] [address] Dr. Brea Causey Glucose Ql (U) Negative Normal NEGATIVE [facility] Comment on above: Performed By: #### U CLINT, CMP, LIPID, DBIL, PHOS, MG #### [facility] [address] [address] [address] Brea Causey Hemoglobin Ql (U) Negative Normal NEGATIVE [facility] Comment on above: Performed By: #### U CLINT, CMP, LIPID, DBIL, PHOS, MG #### [facility] [address] [address] [address] Brea Causey Ketones Ql (U) Negative Normal NEGATIVE [facility] Comment on above: Performed By: #### U CLINT, CMP, LIPID, DBIL, PHOS, MG #### [facility] [address] [address] [address] Brea Causey LEUKOCYTES Negative Normal NEGATIVE [facility] Comment on above: Performed By: #### U CLINT, CMP, LIPID, DBIL, PHOS, MG #### [facility] [address] [address] [address] Brea Causey Nitrite Ql (U) Negative Normal NEGATIVE [facility] Comment on above: Performed By: #### U CLINT, CMP, LIPID, DBIL, PHOS, MG #### [facility] [address] [address] [address] Brea Causey pH (U) 6.0 [pH] Normal 5-9 [facility] Comment on above: Performed By: #### U CLINT, CMP, LIPID, DBIL, PHOS, MG #### [facility] [address] [address] [address] Brea Causey SPEC GRAVITY <=1.005 Abnormal 1.005-<=1.025 [facility] Comment on above: Performed By: #### U CLINT, CMP, LIPID, DBIL, PHOS, MG #### [facility] [address] [address] [address] Brea Causey UA PROTEIN Negative Normal NEGATIVE/ TRACE [facility] Comment on above: Performed By: #### U CLINT, CMP, LIPID, DBIL, PHOS, MG #### [facility] [address] [address] [address] Brea Causey UR MICRO IND NOT INDICATED Normal [facility] Comment on above: Performed By: #### U CLINT, CMP, LIPID, DBIL, PHOS, MG #### [facility] [address] [address] [address] Brea Causey Urobilinogen Qn (U) 0.2 {Sabine'U}/dL Normal 0.2 - 1. 0 [facility] Comment on above: Performed By: #### U CLINT, CMP, LIPID, DBIL, PHOS, MG #### [facility] [address] [address] [address] Brea Causey GI PANEL (PCR)on 11-14-2021 Adenovirus F 40/41 Not detected Normal NOT DETECTED [facility] Comment on above: Performed By: #### U CLINT, CMP, LIPID, DBIL, PHOS, MG #### [facility] [address] [address] [address] Brea Causey Astrovirus Not detected Normal NOT DETECTED [facility] Comment on above: Performed By: #### U CLINT, CMP, LIPID, DBIL, PHOS, MG #### [facility] [address] [address] [address] Brea Causey C. Diff toxin A/B Not detected Normal NOT DETECTED [facility] Comment on above: Performed By: #### U CLINT, CMP, LIPID, DBIL, PHOS, MG #### [facility] [address] [place] [address] Dr. Brea Causey Campylobacter Not detected Normal NOT DETECTED [facility] Comment on above: Performed By: #### U CLINT, CMP, LIPID, DBIL, PHOS, MG #### [facility] [address] [address] [address] Brea Causey Cryptosporidium Not detected Normal NOT DETECTED [facility] Comment on above: Performed By: #### U CLINT, CMP, LIPID, DBIL, PHOS, MG #### [facility] [address] [address] [address] Brea Causey Cyclos. Cayetanensis Not detected Normal NOT DETECTED [facility] Comment on above: Performed By: #### U CLINT, CMP, LIPID, DBIL, PHOS, MG #### [facility] [address] [address] [address] Brea Causey E. Coli O157 Not Applicable Normal Not Applicable [facility] Comment on above: Performed By: #### U CLINT, CMP, LIPID, DBIL, PHOS, MG #### [facility] [address] [address] [address] Brea Causey E. histolytica Not detected Normal NOT DETECTED [facility] Comment on above: Performed By: #### U CLINT, CMP, LIPID, DBIL, PHOS, MG #### [facility] [address] [address] [address] Brea Causey EAEC Not detected Normal NOT DETECTED [facility] Comment on above: Performed By: #### U CLINT, CMP, LIPID, DBIL, PHOS, MG #### [facility] [address] [address] [address] Brea Causey EIEC Not detected Normal NOT DETECTED [facility] Comment on above: Performed By: #### U CLINT, CMP, LIPID, DBIL, PHOS, MG #### [facility] [address] [address] [address] Brea Causey EPEC Not detected Normal NOT DETECTED [facility] Comment on above: Performed By: #### U CLINT, CMP, LIPID, DBIL, PHOS, MG #### [facility] [address] [address] [address] Brea Causey ETEC Not detected Normal NOT DETECTED [facility] Comment on above: Performed By: #### U CLINT, CMP, LIPID, DBIL, PHOS, MG #### [facility] [address] [address] [address] Brea Causey G. Lamblia Not detected Normal NOT DETECTED [facility] Comment on above: Performed By: #### U CLINT, CMP, LIPID, DBIL, PHOS, MG #### [facility] [address] [address] [address] Brea Causey GIPANEL CONTROLS PASSED Normal [facility] Comment on above: Performed By: #### U CLINT, CMP, LIPID, DBIL, PHOS, MG #### [facility] [address] [address] [address] Brea HERNANDEZ HEADER GI PANEL BACTERIA Normal T [facility] Comment on above: Performed By: #### U CLINT, CMP, LIPID, DBIL, PHOS, MG #### [facility] [address] [address] [address] Brea PINTO ECOLI GI PANEL DIARRHEAGENIC E.COLI / SHIGELLA Normal [facility] Comment on above: Performed By: #### U CLINT, CMP, LIPID, DBIL, PHOS, MG #### [facility] [address] [place] [address] Dr. Brea PINTO INFO SEE BELOW [facility] Comment on above: Result Comment: EAEC - Enteroaggregative E. Coli EPEC- Enteropathogenic E. Coli ETEC- Enterotoxigenic E. Coli lt/st STEC- Shigella-like toxin-producing E. Coli stx1/stx2 EIEC- Shigella/Enteroinvasive E. Coli Performed By: #### U CLINT, CMP, LIPID, DBIL, PHOS, MG #### [facility] [address] [place] [address] Dr. Brea PINTO PARASITES GI PANEL PARASITES Normal [facility] Comment on above: Performed By: #### U CLINT, CMP, LIPID, DBIL, PHOS, MG #### [facility] [address] [place] [address] Dr. Brea PINTO VIRUS GI PANEL VIRUSES Normal [facility] Comment on above: Performed By: #### U CLINT, CMP, LIPID, DBIL, PHOS, MG #### [facility] [address] [place] [address] Dr. Brea Causey Norovirus GI/GII Not detected Normal NOT DETECTED [facility] Comment on above: Performed By: #### U CLINT, CMP, LIPID, DBIL, PHOS, MG #### [facility] [address] [place] [address] Dr. Brea Causey P. Shigelloides Not detected Normal NOT DETECTED [facility] Comment on above: Performed By: #### U CLINT, CMP, LIPID, DBIL, PHOS, MG #### [facility] [address] [address] [address] Brea Causey Rotavirus A Not detected Normal NOT DETECTED [facility] Comment on above: Performed By: #### U CLINT, CMP, LIPID, DBIL, PHOS, MG #### [facility] [address] [place] [address] Dr. Brea Causey Salmonella Not detected Normal NOT DETECTED [facility] Comment on above: Performed By: #### U CLINT, CMP, LIPID, DBIL, PHOS, MG #### [facility] [address] [place] [address] Dr. Brea Causey Sapovirus Not detected Normal NOT DETECTED [facility] Comment on above: Performed By: #### U CLINT, CMP, LIPID, DBIL, PHOS, MG #### [facility] [address] [place] [address] Dr. Brea Causey STEC Not detected Normal NOT DETECTED [facility] Comment on above: Performed By: #### U CLINT, CMP, LIPID, DBIL, PHOS, MG #### [facility] [address] [place] [address] Dr. Brea Causey Vibrio Not detected Normal NOT DETECTED [facility] Comment on above: Performed By: #### U CLINT, CMP, LIPID, DBIL, PHOS, MG #### [facility] [address] [place] [address] Dr. Brea Causey Vibrio Cholera Not detected Normal NOT DETECTED The [facility] Comment on above: Performed By: #### U CLINT, CMP, LIPID, DBIL, PHOS, MG #### [facility] [address] [place] [address] Dr. Brea Causey Y. Enterocolitica Not detected Normal NOT DETECTED [facility] Comment on above: Performed By: #### U CLINT, CMP, LIPID, DBIL, PHOS, MG #### [facility] [address] [place] [address] Dr. Brea Causey PROF 14(COMP METB)on 022 Albumin [Mass/Vol] 4.0 g/dL Normal 3.4-5.0 [facility] Comment on above: Performed By: #### C BC #### [facility] [address] [place] [address] Dr. Brea Causey Albumin/Globulin [Mass ratio] 1.3 {ratio} Normal [facility] Comment on above: Performed By: #### C BC #### [facility] [address] [place] [address] Dr. Brea Causey ALP [Catalytic activity/Vol] 142 U/L Critically high 46-116 [facility] Comment on above: Performed By: #### C BC #### [facility] [address] [place] [address] Dr. Brea Causey ALT [Catalytic activity/Vol] 39 U/L Normal 16-63 [facility] Comment on above: Performed By: #### C BC #### [facility] [address] [place] [address] Dr. Brea Causey Anion gap [Moles/Vol] 13.6 mmol/L Normal [facility] Comment on above: Performed By: #### C BC #### [facility] [address] [place] [address] Dr. Brea Causey AST [Catalytic activity/Vol] 23 U/L Normal 15-37 [facility] Comment on above: Performed By: #### C BC #### [facility] [address] [place] [address] Dr. Brea Causey Bilirubin [Mass/Vol] 0.4 mg/dL Normal 0.2-1.0 [facility] Comment on above: Performed By: #### C BC #### [facility] [address] [place] [address] Dr. Brea Causey Calcium [Mass/Vol] 8.4 mg/dL Critically low 8.5-10.1 [facility] Comment on above: Performed By: #### C BC #### [facility] [address] [place] [address] Dr. Brea Causey Chloride [Moles/Vol] 97 mmol/L Critically low 98-107 [facility] Comment on above: Performed By: #### C BC #### [facility] [address] [place] [address] Dr. Brea Causey CO2 [Moles/Vol] 26.1 mmol/L Normal 21.0-32.0 [facility] Comment on above: Performed By: #### C BC #### [facility] [address] [place] [address] Dr. Brea Causey Creatinine [Mass/Vol] 1.21 mg/dL Normal 0.70-1.30 [facility] Comment on above: Performed By: #### C BC #### [facility] [address] [place] [address] Dr. Brea Causey EGFR-AF MONTENEGRIN >60 Normal >=60 [facility] Comment on above: Performed By: #### C BC #### [facility] [address] [place] [address] Dr. Brea Causey EGFR-NON AF MONTENEGRIN 59 mL/min/1.73m2 Critically low >=60 [facility] Comment on above: Performed By: #### C BC #### [facility] [address] [place] [address] Dr. Brea Causey Globulin (S) [Mass/Vol] 3.2 g/dL Normal [facility] Comment on above: Performed By: #### C BC #### [facility] [address] [place] [address] Dr. Brea Causey Glucose [Mass/Vol] 227 mg/dL Critically high 74-106 [facility] Comment on above: Performed By: #### C BC #### [facility] [address] [place] [address] Dr. Brea Causey Potassium [Moles/Vol] 4.7 mmol/L Normal 3.5-5.1 [facility] Comment on above: Performed By: #### C BC #### [facility] [address] [place] [address] Dr. Brea Causey Protein [Mass/Vol] 7.2 g/dL Normal 6.4-8.2 [facility] Comment on above: Performed By: #### C BC #### [facility] [address] [address] [address] Brea Causey Sodium [Moles/Vol] 132 mmol/L Critically low 136-145 [facility] Comment on above: Performed By: #### C BC #### [facility] [address] [place], [place] [address] Dr. Brea Causey Urea nitrogen [Mass/Vol] 12.0 mg/dL Normal 7.0-18.0 [facility] Comment on above: Performed By: #### C BC #### [facility] [address] [address] [address] Brea Causey Urea nitrogen/Creatinine [Mass ratio] 9.9 mg/mg Normal [facility] Comment on above: Performed By: #### C BC #### [facility] [address] [address] [address] Brea Causey CBC W/DIFFon 10-31-2021 ABS IMM GRANS 0.1 10*3/uL Normal 0.0-0.2 [facility] Comment on above: Performed By: #### 4 5506, 11009, 85914, 09065, 61626, 64418 #### [facility] [address] [place] [address], [facility] ABS NEUTROPHILS 5.9 10*3/uL Normal 1.6-7.6 [facility] Comment on above: Performed By: #### 4 5506, 51901, 04255, 69683, 90165, 89243 #### [facility] [address] [place] [address], [place] Basophils (Bld) [#/Vol] 0.0 10*3/uL Normal 0.0-0.2 [facility] Comment on above: Performed By: #### 4 5506, 26190, 20857, 64684, 07954, 64196 #### [facility] [address] [place] [address], [place] Basophils/100 WBC (Bld) 0.3 % Normal 0.0-1.0 [facility] Comment on above: Performed By: #### 4 5506, 70719, 44196, 15985, 96685, 68978 #### [facility] [address] [place] [address], [facility] Eosinophils (Bld) [#/Vol] 0.2 10*3/uL Normal 0.0-0.5 [facility] Comment on above: Performed By: #### 4 5506, 98401, 85721, 23336, 59727, 03909 #### [facility] [address] [place] [address], [facility] Eosinophils/100 WBC (Bld) 2.3 % Normal 0.0-6.0 [facility] Comment on above: Performed By: #### 4 5506, 65877, 48666, 45331, 12141, 38699 #### [facility] [address] Erythrocyte distribution width (RBC) [Ratio] 13.4 % Normal 11.5-15.0 [facility] Comment on above: Performed By: #### 4 5506, 32697, 94151, 41252, 87227, 67728 #### [facility] [address] [place] [address], [facility] Hematocrit (Bld) [Volume fraction] 36.1 % Low 39.0-50.0 [facility] Comment on above: Performed By: #### 4 5506, 08749, 30914, 99192, 67316, 73299 #### [facility] [address] [place] [id number], [facility] Hemoglobin (Bld) [Mass/Vol] 11.9 g/dL Low 13.0-17.0 [facility] Comment on above: Performed By: #### 4 5506, 32938, 75189, 47122, 47538, 20453 #### [facility] [address] [facility] [address] IMMATURE GRANS 0.7 % Normal 0.0-1.0 [facility] Comment on above: Performed By: #### 4 5506, 32824, 69020, 89640, 30040, 66223 #### [facility] [address] [facility] [place] [address], [facility] Lymphocytes (Bld) [#/Vol] 0.9 10*3/uL Low 1.2-4.0 [facility] Comment on above: Performed By: #### 4 5506, 26905, 78170, 57443, 58078, 60541 #### [facility] [address] Lymphocytes/100 WBC (Bld) 12.1 % Low 20.0-45.0 [facility] Comment on above: Performed By: #### 4 5506, 08333, 67527, 56109, 71206, 01098 #### [facility] [address] [facility]. [address] MCH (RBC) [Entitic mass] 29.3 pg Normal 27.0-33.0 [facility] Comment on above: Performed By: #### 4 5506, 68629, 22533, 45323, 04290, 54469 #### [facility] [address] [facility]. [address] MCHC (RBC) [Mass/Vol] 33.0 g/dL Normal 32.0-35.0 [facility] Comment on above: Performed By: #### 4 5506, 32259, 44974, 49975, 96807, 12612 #### [facility] [address] [facility] [place] [address], [facility] MCV (RBC) [Entitic vol] 88.9 fL Normal 82.0-98.0 [facility] Comment on above: Performed By: #### 4 5506, 22799, 61786, 99517, 82025, 01753 #### [facility] [address] [place] [address], [facility] Monocytes (Bld) [#/Vol] 0.6 10*3/uL Normal 0.1-1.0 [facility] Comment on above: Performed By: #### 4 5506, 60691, 85400, 11261, 26019, 44806 #### [facility] [address] [facility]. [address] MONOS 8.3 % Normal 5.0-12.0 [facility] Comment on above: Performed By: #### 4 5506, 83275, 06097, 95029, 67508, 12736 #### [facility] [address] [facility]. [address] Neutrophils/100 WBC (Bld) 76.3 % High 40.0-72.0 [facility] Comment on above: Performed By: #### 4 5506, 41753, 90381, 09106, 24765, 70748 #### [facility] [address] [facility]. [address] Nucleated RBC/100 WBC (Bld) [Ratio] 0 % Normal 0-0 [facility] Comment on above: Performed By: #### 4 5506, 05837, 90134, 74931, 24559, 95804 #### [facility] [address] [facility] [address], [facility] PLAT CNT 260 10*3/uL Normal 150-400 [facility] Comment on above: Performed By: #### 4 5506, 33808, 67173, 73961, 33773, 72939 #### [facility] [address] [facility]. [address] RBC (Bld) [#/Vol] 4.06 10*6/uL Low 4.20-5.70 [facility] Comment on above: Performed By: #### 4 5506, 73693, 21054, 34378, 36215, 94935 #### [facility] [address] [place] [address], [facility] WBC (Bld) [#/Vol] 7.68 10*3/uL Normal 4.00-10.60 [facility] Comment on above: Performed By: #### 4 5506, 38353, 70621, 09835, 53391, 02002 #### [facility] [address] COMP METABOLIC PANELon 10-31 Albumin [Mass/Vol] 4.4 g/dL Normal 3.5-5.7 [facility] Comment on above: Performed By: #### 4 5506, 25884, 60242, 54838, 36523, 60116 #### [facility] [address] ALKALINE PHOSPH 132 IU/L High 34-104 [facility] Comment on above: Performed By: #### 4 5506, 93367, 48802, 03830, 75754, 28618 #### [facility] [address] ALT [Catalytic activity/Vol] 26 U/L Normal 7-52 [facility] Comment on above: Performed By: #### 4 5506, 99316, 78600, 62048, 59899, 88555 #### [facility] [address] AST [Catalytic activity/Vol] 17 U/L Normal 13-39 [facility] Comment on above: Performed By: #### 4 5506, 70940, 50604, 16390, 08027, 79288 #### [facility] [address] [place] [address], [facility] Bilirubin [Mass/Vol] 0.4 mg/dL Normal 0.3-1.0 [facility] Comment on above: Performed By: #### 4 5506, 70337, 40733, 55654, 40778, 48092 #### [facility] [address] [place] [address], [place] Calcium [Mass/Vol] 8.6 mg/dL Normal 8.6-10.3 [facility] Comment on above: Performed By: #### 4 5506, 60722, 16441, 65967, 51962, 83712 #### [facility] [address] [place] [address], [place] Chloride [Moles/Vol] 97 mmol/L Low 98-107 [facility] Comment on above: Performed By: #### 4 5506, 45108, 34554, 17974, 80958, 68931 #### [facility] [address] [place] [address], [place] CO2 [Moles/Vol] 26 mmol/L Normal 21-31 [facility] Comment on above: Performed By: #### 4 5506, 34013, 42836, 46069, 75393, 93307 #### [facility] [address] [place] [address], [place] Creatinine [Mass/Vol] 1.04 mg/dL Normal 0.70-1.30 [facility] Comment on above: Performed By: #### 4 5506, 27483, 52175, 19736, 42010, 12250 #### [facility] [address] [place] [address], [place] GFR/1.73 sq M.predicted among blacks MDRD (S/P/Bld) [Vol rate/Area] mL/min/{1.73_m2} Normal >60 [facility] Comment on above: Performed By: #### 4 5506, 16850, 37246, 52979, 80716, 28223 #### [facility] [address] [place] [address], [place] GFR/1.73 sq M.predicted among non-blacks MDRD (S/P/Bld) [Vol rate/Area] mL/min/{1.73_m2} Normal >60 [facility] Comment on above: Performed By: #### 4 5506, 93425, 74084, 88476, 45189, 24295 #### [facility] [address] [place] [address], [place] Glucose [Mass/Vol] 158 mg/dL High 70-100 [facility] Comment on above: Performed By: #### 4 5506, 52053, 96891, 66987, 06407, 29739 #### [facility] [address] [place] [address], [place] Potassium [Moles/Vol] 4.4 mmol/L Normal 3.5-5.1 [facility] Comment on above: Performed By: #### 4 5506, 63428, 89030, 51131, 62177, 27590 #### [facility] [address] [place] [address], [place] Protein [Mass/Vol] 6.6 g/dL Normal 6.0-8.3 [facility] Comment on above: Performed By: #### 4 5506, 85019, 26560, 88236, 52689, 41647 #### [facility] [address] [place] [address], [place] Sodium [Moles/Vol] 131 mmol/L Low 136-145 [facility] Comment on above: Performed By: #### 4 5506, 34147, 35084, 50165, 67026, 02970 #### [facility] [address] [place] [address], [place] Urea nitrogen [Mass/Vol] 15 mg/dL Normal 7-25 [facility] Comment on above: Performed By: #### 4 5506, 59646, 87103, 55632, 84229, 81410 #### [facility] [address] [place] [address], [place] DIRECT BILIon 06-22-2022 Bilirubin.direct [Mass/Vol] 0.1 mg/dL Normal 0.0-0.2 [facility] Comment on above: Performed By: #### 4 5506, 11556, 41143, 42075, 36152, 60163 #### [facility] [address] [place] [address], [facility] LIPID PROFILEon 10-31-2021 Cholesterol [Mass/Vol] 70 mg/dL Low 120-200 [facility] Comment on above: Result Comment: CHOL ESTEROL REFERENCE RANGE: 20 YEARS AND OLDER CARDIOVASCULAR RISK Less than 200 mg/dl Low Risk 200 to 239 mg/dl Borderline Risk 240 mg/dl and greater High Risk Performed By: #### 4 5506, 25631, 32296, 48957, 90754, 33396 #### [facility] [address] [place] [address], [facility] Cholesterol in HDL [Mass/Vol] 35 mg/dL Normal 23-92 [facility] Comment on above: Result Comment: Slig ht variation in normal range could be due to gender and/or age. HDL CHOLESTEROL REFERENCE RANGE: 20 years and older Cardiovascular Risk > or =60 mg/dL Desirable 40 TO 59 mg/dL Low Risk <40 mg/dL High Risk Performed By: #### 4 5506, 24725, 41912, 21080, 35800, 65475 #### [facility] [address] [place] [address], [facility] Cholesterol in LDL [Mass/Vol] 20 mg/dL Normal 0-130 [facility] Comment on above: Result Comment: LDL IS A CALCULATION LDL IS ONLY VALID IF THE TRIG IS LESS THAN 400. Performed By: #### 4 5506, 39008, 96287, 80006, 19286, 09209 #### [facility] [address] [place] [address], [facility] Cholesterol.total/Cho lesterol in HDL [Mass ratio] 2.0 {ratio} Normal .0-4.5 [facility] Comment on above: Performed By: #### 4 5506, 51354, 93772, 91374, 71494, 04214 #### [facility] [address] NON-HDL CHOLESTEROL 35 mg/dL Normal [facility] Comment on above: Performed By: #### 4 5506, 50519, 00511, 49156, 94317, 70980 #### [facility] [address] Triglyceride [Mass/Vol] 73 mg/dL Normal 40-149 [facility] Comment on above: Result Comment: TRIG LYCERIDE REFERENCE RANGE: 20 YEARS AND OLDER CARDIOVASCULAR RISK LESS THAN 150 mg/dl LOW RISK 150 TO 199 mg/dl BORDERLINE RISK 200 mg/dl AND GREATER HIGH RISK Performed By: #### 4 5506, 75275, 77424, 03075, 74540, 27760 #### [facility] [address] VLDL CHOL 15 mg/dL Normal 0-40 [facility] Comment on above: Performed By: #### 4 5506, 33383, 01392, 32242, 63804, 64419 #### [facility] [address] [facility] MAGNESIUM BLOODon 10-31-2021 Magnesium [Mass/Vol] 1.1 mg/dL Critically low 1.9-2.7 [facility] Comment on above: Performed By: #### 4 5506, 84366, 59863, 90306, 33458, 35280 #### [facility] [address] [place] [address], [facility] PHOSPHORUS BLOODon 2 Phosphate [Mass/Vol] 3.0 mg/dL Normal 2.5-5.0 [facility] Comment on above: Performed By: #### 4 5506, 54137, 76823, 93820, 78333, 91585 #### [facility] [address] PROSPERAon 10-31-2021 PROSPERA KIT Results to be mailed directly to physician's office by reference lab. Normal [facility] Comment on above: Result Comment: Test performed by [id number] [place] [id number] Specimen collected for transplant patient and sent to [facility] per Dr instructions. No charge. No result expected. For billing and tracking purposes only. Performed By: #### 4 5506, 34956, 61837, 48775, 34032, 61828 #### [facility] [address] RESULT Results to be mailed directly to physician's office by reference lab. Normal [facility] Comment on above: Performed By: #### 4 5506, 75995, 41281, 67160, 48041, 76240 #### [facility] [address] [facility]. [address] TACROLIMUSon 10-31-2021 Tacrolimus (Bld) [Mass/Vol] 7.6 ng/mL Normal 5.0-20.0 [facility] Comment on above: Result Comment: The [employer] Tacrolimus assay is a delayed one-step immunoassay for the quantitative determination of tacrolimus in human whole blood using the chemiluminescent microparticle immunoassay (CMIA) technology with flexible assay protocols, referred to as Chemiflex. Performed By: #### 4 5506, 42309, 74152, 56249, 84478, 02376 #### [facility] [address] [facility] [place] [address], [facility] URIC ACID BLOODon 10-31-2021 Urate [Mass/Vol] 7.8 mg/dL High 4.4-7.6 [facility] Comment on above: Performed By: #### 4 5506, 00286, 40693, 03936, 24030, 17475 #### [facility] [address] [place] [address], [facility] NM PARATHYROID WITH SPECT AN D CTon 07-24-2021 NM PARATHYROID WITH SPECT AND CT [facility] Department of Radiology [address] [place] [address] Patient Name: WM SUAREZ : 1950 Sex: M Age: Race: White Pt. Location: 20 Patient Status: D Ordered Date: 06/26/2021 8:40:00 AM Completed Date: 07/24/2021 01:21 PM Requesting Provider: NAGA BOSCH Attending Provider: NAGA BOSCH Report Copy To: JERICHO MCCARTHY Signs & Symptoms: E21.3 Hyperparathyroidism, unspecified I10 History: Reading NPC Req. per [facility] A/B for CPT 94244 *SLA Comments: , , , Ordering Provider [...] SPECT. Electronically signed: Nan Earl. Transcribed by: [email or web address], User Resident: Electronically Signed by: NAN EARL @ 07/27/2021 12:13 PM Normal [facility] Comment on above: Order Comment: , , = ========= , Ordering Provider - NAGA BOSCH MD , CBC W/DIFFon 06-22-2021 ABS IMM GRANS 0.1 10*3/uL Normal 0.0-0.2 [facility] Comment on above: Performed By: #### 4 5506, 30481, 21045, 93439, 87231, 50240 #### [facility] [address] ABS NEUTROPHILS 4.7 10*3/uL Normal 1.6-7.6 [facility] Comment on above: Performed By: #### 4 5506, 45044, 13302, 38960, 79120, 28965 #### [facility] [address] [facility] [place] [address], [facility] Basophils (Bld) [#/Vol] 0.0 10*3/uL Normal 0.0-0.2 [facility] Comment on above: Performed By: #### 4 5506, 99750, 70160, 11643, 46561, 36247 #### [facility] [address] Basophils/100 WBC (Bld) 0.6 % Normal 0.0-1.0 [facility] Comment on above: Performed By: #### 4 5506, 55794, 40484, 57357, 29004, 17173 #### [facility] [address] [place] [address], [facility] Eosinophils (Bld) [#/Vol] 0.2 10*3/uL Normal 0.0-0.5 [facility] Comment on above: Performed By: #### 4 5506, 95159, 17147, 47875, 82777, 23328 #### [facility] [address] [place] [address], [facility] Eosinophils/100 WBC (Bld) 2.5 % Normal 0.0-6.0 [facility] Comment on above: Performed By: #### 4 5506, 42169, 23741, 11437, 77139, 49786 #### [facility] [address] [place] [address], [facility] [place] Erythrocyte distribution width (RBC) [Ratio] 13.6 % Normal 11.5-15.0 [facility] Comment on above: Performed By: #### 4 5506, 64177, 86816, 83252, 02380, 62166 #### [facility] [address] [place] [address], [facility] [place] Hematocrit (Bld) [Volume fraction] 36.3 % Low 39.0-50.0 [facility] Comment on above: Performed By: #### 4 5506, 04226, 57418, 34969, 04138, 08342 #### [facility] [address] [place] [address], [facility] [place] Hemoglobin (Bld) [Mass/Vol] 11.7 g/dL Low 13.0-17.0 [facility] Comment on above: Performed By: #### 4 5506, 60549, 38097, 96637, 53217, 15289 #### [facility] [address] [place] [address], [facility] [place] IMMATURE GRANS 0.8 % Normal 0.0-1.0 [facility] Comment on above: Performed By: #### 4 5506, 71854, 68618, 65070, 72579, 67110 #### [facility] [address] [place] [address], [facility] [place] Lymphocytes (Bld) [#/Vol] 0.9 10*3/uL Low 1.2-4.0 [facility] Comment on above: Performed By: #### 4 5506, 97505, 63328, 15787, 54585, 72966 #### [facility] [address] [place] [address], [facility] [place] Lymphocytes/100 WBC (Bld) 13.6 % Low 20.0-45.0 [facility] Comment on above: Performed By: #### 4 5506, 57360, 80242, 38715, 71585, 58675 #### [facility] [address] [facility] [place] [address], [facility] [place] MCH (RBC) [Entitic mass] 28.6 pg Normal 27.0-33.0 [facility] Comment on above: Performed By: #### 4 5506, 50823, 82866, 60674, 89309, 50777 #### [facility] [address] [place] [address], [facility] [place] MCHC (RBC) [Mass/Vol] 32.2 g/dL Normal 32.0-35.0 [facility] Comment on above: Performed By: #### 4 5506, 64756, 15170, 48490, 81173, 71806 #### [facility] [address] [place] [address], [facility] [place] MCV (RBC) [Entitic vol] 88.8 fL Normal 82.0-98.0 [facility] Comment on above: Performed By: #### 4 5506, 12483, 39191, 02449, 88341, 40764 #### [facility] [address] [facility] [place] [address], [facility] [place] Monocytes (Bld) [#/Vol] 0.6 10*3/uL Normal 0.1-1.0 [facility] Comment on above: Performed By: #### 4 5506, 34228, 22705, 23816, 46743, 92012 #### [facility] [address] [facility] [place] [address], [facility] [place] MONOS 9.6 % Normal 5.0-12.0 [facility] Comment on above: Performed By: #### 4 5506, 19958, 44655, 47607, 90465, 59689 #### [facility] [address] [facility]. [address] Neutrophils/100 WBC (Bld) 72.9 % High 40.0-72.0 [facility] Comment on above: Performed By: #### 4 5506, 18389, 05427, 70212, 57117, 71697 #### [facility] [address] [facility] [place] [address], [facility] [place] Nucleated RBC/100 WBC (Bld) [Ratio] 0 % Normal 0-0 [facility] Comment on above: Performed By: #### 4 5506, 00621, 75358, 87411, 03821, 66321 #### [facility] [address] [facility] [place] [address], [facility] [place] PLAT CNT 263 10*3/uL Normal 150-400 [facility] Comment on above: Performed By: #### 4 5506, 34705, 40701, 58932, 18391, 16370 #### [facility] [address] [facility] [place] [address], [facility] [place] RBC (Bld) [#/Vol] 4.09 10*6/uL Low 4.20-5.70 [facility] Comment on above: Performed By: #### 4 5506, 37285, 86252, 96310, 18218, 85556 #### [facility] [address] [place] [address], [facility] [place] WBC (Bld) [#/Vol] 6.45 10*3/uL Normal 4.00-10.60 [facility] Comment on above: Performed By: #### 4 5506, 89905, 71539, 43369, 34593, 58090 #### [facility] [address] COMP METABOLIC PANELon 06-22 Albumin [Mass/Vol] 4.3 g/dL Normal 3.5-5.7 [facility] Comment on above: Performed By: #### 4 5506, 73055, 13824, 04608, 77240, 05783 #### [facility] [address] [place] [address], [facility] [place] ALKALINE PHOSPH 143 IU/L High 34-104 [facility] Comment on above: Performed By: #### 4 5506, 89596, 84310, 71992, 36620, 15972 #### [facility] [address] ALT [Catalytic activity/Vol] 18 U/L Normal 7-52 [facility] Comment on above: Performed By: #### 4 5506, 42222, 53663, 32890, 95963, 27670 #### [facility] [address] [place] [address], [facility] [place] AST [Catalytic activity/Vol] 15 U/L Normal 13-39 [facility] Comment on above: Performed By: #### 4 5506, 00766, 94178, 05629, 84410, 13235 #### [facility] [address] [place] [address], [facility] [place] Bilirubin [Mass/Vol] 0.3 mg/dL Normal 0.3-1.0 [facility] Comment on above: Performed By: #### 4 5506, 08301, 45229, 61622, 68997, 51591 #### [facility] [address] [place] [address], [place] Calcium [Mass/Vol] 10.6 mg/dL High 8.6-10.3 [facility] Comment on above: Performed By: #### 4 5506, 85994, 87791, 80218, 86805, 04575 #### [facility] [address] [place] [address], [place] Chloride [Moles/Vol] 102 mmol/L Normal 98-107 [facility] Comment on above: Performed By: #### 4 5506, 32539, 46084, 63861, 91695, 91099 #### [facility] [address] [place] [address], [place] CO2 [Moles/Vol] 24 mmol/L Normal 21-31 [facility] Comment on above: Performed By: #### 4 5506, 42293, 16128, 53685, 51132, 46680 #### [facility] [address] [place] [address], [place] Creatinine [Mass/Vol] 1.04 mg/dL Normal 0.70-1.30 [facility] Comment on above: Performed By: #### 4 5506, 72573, 31655, 13592, 49298, 55596 #### [facility] [address] [place] [address], [place] GFR/1.73 sq M.predicted among blacks MDRD (S/P/Bld) [Vol rate/Area] mL/min/{1.73_m2} Normal >60 [facility] Comment on above: Performed By: #### 4 5506, 19712, 77604, 07152, 52089, 81761 #### [facility] [address] [place] [address], [place] GFR/1.73 sq M.predicted among non-blacks MDRD (S/P/Bld) [Vol rate/Area] mL/min/{1.73_m2} Normal >60 [facility] Comment on above: Performed By: #### 4 5506, 97935, 71815, 94393, 43473, 64159 #### [facility] [address] [place] [address], [place] Glucose [Mass/Vol] 167 mg/dL High 70-100 [facility] Comment on above: Performed By: #### 4 5506, 20908, 72754, 25146, 92171, 92362 #### [facility] [address] [place] [address], [place] Potassium [Moles/Vol] 5.3 mmol/L High 3.5-5.1 [facility] Comment on above: Performed By: #### 4 5506, 50003, 09404, 14274, 45611, 27139 #### [facility] [address] [place] [address], [place] Protein [Mass/Vol] 6.5 g/dL Normal 6.0-8.3 [facility] Comment on above: Performed By: #### 4 5506, 93480, 83946, 02777, 22831, 43904 #### [facility] [address] [place] [address], [place] Sodium [Moles/Vol] 134 mmol/L Low 136-145 [facility] Comment on above: Performed By: #### 4 5506, 76593, 32963, 64243, 74245, 92594 #### [facility] [address] [place] [address], [place] Urea nitrogen [Mass/Vol] 11 mg/dL Normal 7-25 [facility] Comment on above: Performed By: #### 4 5506, 04248, 49426, 77964, 52917, 99085 #### [facility] [address] [place] [address], [facility] [place] DIRECT BILIon 06-22-2021 Bilirubin.direct [Mass/Vol] 0.1 mg/dL Normal 0.0-0.2 [facility] Comment on above: Performed By: #### 4 5506, 62975, 84998, 35099, 97868, 40418 #### [facility] [address] [place] [address], [facility] [place] LIPID PROFILEon 06-22-2021 Cholesterol [Mass/Vol] 77 mg/dL Low 120-200 [facility] Comment on above: Result Comment: CHOL ESTEROL REFERENCE RANGE: 20 YEARS AND OLDER CARDIOVASCULAR RISK Less than 200 mg/dl Low Risk 200 to 239 mg/dl Borderline Risk 240 mg/dl and greater High Risk Performed By: #### 4 5506, 11529, 47713, 59151, 16537, 82598 #### [facility] [address] [place] [address], [facility] [place] Cholesterol in HDL [Mass/Vol] 40 mg/dL Normal 23-92 [facility] Comment on above: Result Comment: Slig ht variation in normal range could be due to gender and/or age. HDL CHOLESTEROL REFERENCE RANGE: 20 years and older Cardiovascular Risk > or =60 mg/dL Desirable 40 TO 59 mg/dL Low Risk <40 mg/dL High Risk Performed By: #### 4 5506, 69366, 70873, 87074, 62603, 28707 #### [facility] [address] [place] [address], [facility] [place] Cholesterol in LDL [Mass/Vol] 24 mg/dL Normal 0-130 [facility] Comment on above: Result Comment: LDL IS A CALCULATION LDL IS ONLY VALID IF THE TRIG IS LESS THAN 400. Performed By: #### 4 5506, 63991, 43310, 48700, 48599, 58286 #### [facility] [address] [place] [address], [facility] [place] Cholesterol.total/Cho lesterol in HDL [Mass ratio] 1.9 {ratio} Normal .0-4.5 [facility] Comment on above: Performed By: #### 4 5506, 35689, 84672, 73371, 68336, 32522 #### [facility] [address] NON-HDL CHOLESTEROL 37 mg/dL Normal [facility] Comment on above: Performed By: #### 4 5506, 34708, 51617, 09529, 07301, 53110 #### [facility] [address] Triglyceride [Mass/Vol] 63 mg/dL Normal 40-149 [facility] Comment on above: Result Comment: TRIG LYCERIDE REFERENCE RANGE: 20 YEARS AND OLDER CARDIOVASCULAR RISK LESS THAN 150 mg/dl LOW RISK 150 TO 199 mg/dl BORDERLINE RISK 200 mg/dl AND GREATER HIGH RISK Performed By: #### 4 5506, 10794, 79824, 56690, 73654, 87110 #### [facility] [address] VLDL CHOL 13 mg/dL Normal 0-40 [facility] Comment on above: Performed By: #### 4 5506, 63388, 79231, 72526, 01356, 51017 #### [facility] [address] MAGNESIUM BLOODon 06-22-2021 Magnesium [Mass/Vol] 1.4 mg/dL Low 1.9-2.7 [facility] Comment on above: Performed By: #### 4 5506, 64435, 47945, 36696, 32633, 46911 #### [facility] [address] [place] [address], [facility] [place] PHOSPHORUS BLOODon Phosphate [Mass/Vol] 2.5 mg/dL Normal 2.5-5.0 [facility] Comment on above: Performed By: #### 4 5506, 36981, 93192, 68653, 28861, 17222 #### [facility] PTH INTACTon 06-22-2021 PTH INTACT 155 pg/mL High 12-88 [facility] Comment on above: Performed By: #### 4 5506, 54453, 53802, 75961, 25280, 61558 #### [facility] [address] TACROLIMUSon 06-22-2021 Tacrolimus (Bld) [Mass/Vol] 21.0 ng/mL High 5.0-20.0 [facility] Comment on above: Result Comment: The [employer] Tacrolimus assay is a delayed one-step immunoassay for the quantitative determination of tacrolimus in human whole blood using the chemiluminescent microparticle immunoassay (CMIA) technology with flexible assay protocols, referred to as Chemiflex. Performed By: #### 4 5506, 79187, 56372, 23719, 76455, 90232 #### [facility] [address] URIC ACID BLOODon 06-22-2021 Urate [Mass/Vol] 7.9 mg/dL High 4.4-7.6 [facility] Comment on above: Performed By: #### 4 5506, 95380, 42069, 42351, 35066, 28694 #### [facility] [address] CBC W/DIFFon 04-19-2021 ABS IMM GRANS 0.1 10*3/uL Normal 0.0-0.2 [facility] Comment on above: Performed By: #### 4 5506, 20925, 31767, 15022, 98587, 47166 #### [facility] [address] ABS NEUTROPHILS 5.2 10*3/uL Normal 1.6-7.6 [facility] Comment on above: Performed By: #### 4 5506, 70773, 44536, 00956, 88191, 88035 #### [facility] [address] [place] [address], [facility] [place] Basophils (Bld) [#/Vol] 0.0 10*3/uL Normal 0.0-0.2 [facility] Comment on above: Performed By: #### 4 5506, 44689, 60886, 02063, 77205, 37412 #### [facility] [address] [place] [address], [facility] [place] Basophils/100 WBC (Bld) 0.4 % Normal 0.0-1.0 [facility] Comment on above: Performed By: #### 4 5506, 63201, 73034, 84713, 65369, 99730 #### [facility] [address] [place] [address], [facility] [place] Eosinophils (Bld) [#/Vol] 0.2 10*3/uL Normal 0.0-0.5 [facility] Comment on above: Performed By: #### 4 5506, 28098, 17561, 23357, 25725, 47562 #### [facility] [address] [place] [address], [facility] [place] Eosinophils/100 WBC (Bld) 2.9 % Normal 0.0-6.0 [facility] Comment on above: Performed By: #### 4 5506, 12470, 68432, 89487, 77754, 54737 #### [facility] [address] [place] [address], [facility] [place] Erythrocyte distribution width (RBC) [Ratio] 13.3 % Normal 11.5-15.0 [facility] Comment on above: Performed By: #### 4 5506, 50024, 86997, 49387, 20994, 21975 #### [facility] [address] [place] [address], [facility] [place] Hematocrit (Bld) [Volume fraction] 37.1 % Low 39.0-50.0 [facility] Comment on above: Performed By: #### 4 5506, 27729, 81033, 06603, 60707, 20079 #### [facility] [address] [facility] [address] Hemoglobin (Bld) [Mass/Vol] 11.7 g/dL Low 13.0-17.0 [facility] Comment on above: Performed By: #### 4 5506, 74410, 69999, 20683, 21810, 51854 #### [facility] [address] [facility]. [address] IMMATURE GRANS 0.9 % Normal 0.0-1.0 [facility] Comment on above: Performed By: #### 4 5506, 43137, 17367, 16427, 20249, 60797 #### [facility] [address] [facility]. [address] Lymphocytes (Bld) [#/Vol] 0.9 10*3/uL Low 1.2-4.0 [facility] Comment on above: Performed By: #### 4 5506, 84396, 87255, 79388, 79943, 37363 #### [facility] [address] [facility]. [address] Lymphocytes/100 WBC (Bld) 12.5 % Low 20.0-45.0 [facility] Comment on above: Performed By: #### 4 5506, 03187, 73105, 66593, 38605, 54321 #### [facility] [address] [facility]. [address] MCH (RBC) [Entitic mass] 29.0 pg Normal 27.0-33.0 [facility] Comment on above: Performed By: #### 4 5506, 65964, 74982, 96890, 11907, 88095 #### [facility] [address] [place] [address], [facility] [place] MCHC (RBC) [Mass/Vol] 31.5 g/dL Low 32.0-35.0 [facility] Comment on above: Performed By: #### 4 5506, 95349, 74448, 10294, 14576, 01440 #### [facility] [address] [place] [address], [facility] [place] MCV (RBC) [Entitic vol] 92.1 fL Normal 82.0-98.0 [facility] Comment on above: Performed By: #### 4 5506, 97504, 62257, 45341, 62923, 31060 #### [facility] [address] Monocytes (Bld) [#/Vol] 0.6 10*3/uL Normal 0.1-1.0 [facility] Comment on above: Performed By: #### 4 5506, 01631, 72236, 45809, 23245, 79027 #### [facility] [address] [facility]. [address] MONOS 8.6 % Normal 5.0-12.0 [facility] Comment on above: Performed By: #### 4 5506, 24065, 10909, 89398, 22251, 02880 #### [facility] [address] [facility]. [address] Neutrophils/100 WBC (Bld) 74.7 % High 40.0-72.0 [facility] Comment on above: Performed By: #### 4 5506, 51932, 70956, 07762, 90459, 76007 #### [facility] [address] [facility] [address], [facility] [place] Nucleated RBC/100 WBC (Bld) [Ratio] 0 % Normal 0-0 [facility] Comment on above: Performed By: #### 4 5506, 14115, 53690, 53901, 47369, 61668 #### [facility] [address] [place] [address], [facility] [place] PLAT CNT 290 10*3/uL Normal 150-400 [facility] Comment on above: Performed By: #### 4 5506, 65639, 55847, 53798, 33793, 23683 #### [facility] [address] [place] [address], [facility] [place] RBC (Bld) [#/Vol] 4.03 10*6/uL Low 4.20-5.70 [facility] Comment on above: Performed By: #### 4 5506, 28062, 57334, 26194, 60485, 31427 #### [facility] [address] [place] [address], [facility] [place] WBC (Bld) [#/Vol] 6.96 10*3/uL Normal 4.00-10.60 [facility] Comment on above: Performed By: #### 4 5506, 70225, 33513, 08150, 65474, 59269 #### [facility] [address] [place] [address], [facility] [place] COMP METABOLIC PANELon 04-19 Albumin [Mass/Vol] 4.3 g/dL Normal 3.5-5.7 [facility] Comment on above: Performed By: #### 4 5506, 17726, 55684, 27517, 88110, 25659 #### [facility] [address] [place] [address], [facility] ALKALINE PHOSPH 137 IU/L High 34-104 [facility] Comment on above: Performed By: #### 4 5506, 05531, 34869, 61079, 37166, 03685 #### [facility] [address] [place] [address], [place] ALT [Catalytic activity/Vol] 17 U/L Normal 7-52 [facility] Comment on above: Performed By: #### 4 5506, 78182, 20095, 39700, 72095, 76969 #### [facility] [address] [place] [address], [facility] AST [Catalytic activity/Vol] 16 U/L Normal 13-39 [facility] Comment on above: Performed By: #### 4 5506, 13079, 06164, 84742, 27854, 79905 #### [facility] [address] [place] [address], [place] Bilirubin [Mass/Vol] 0.4 mg/dL Normal 0.3-1.0 [facility] Comment on above: Performed By: #### 4 5506, 83067, 84900, 28166, 41041, 72597 #### [facility] [address] [place] [address], [place] Calcium [Mass/Vol] 10.5 mg/dL High 8.6-10.3 [facility] Comment on above: Performed By: #### 4 5506, 22446, 46896, 82798, 00358, 81026 #### [facility] [address] [place] [address], [place] Chloride [Moles/Vol] 99 mmol/L Normal 98-107 [facility] Comment on above: Performed By: #### 4 5506, 46241, 07538, 04228, 37413, 98683 #### [facility] [address] [place] [address], [place] CO2 [Moles/Vol] 27 mmol/L Normal 21-31 [facility] Comment on above: Performed By: #### 4 5506, 13092, 88811, 05698, 80191, 70871 #### [facility] [address] [place] [address], [place] Creatinine [Mass/Vol] 1.04 mg/dL Normal 0.70-1.30 [facility] Comment on above: Performed By: #### 4 5506, 91092, 26542, 67856, 30020, 44325 #### [facility] [address] [place] [address], [place] GFR/1.73 sq M.predicted among blacks MDRD (S/P/Bld) [Vol rate/Area] mL/min/{1.73_m2} Normal >60 [facility] Comment on above: Performed By: #### 4 5506, 53443, 58954, 42122, 12306, 40861 #### [facility] [address] [place] [address], [place] GFR/1.73 sq M.predicted among non-blacks MDRD (S/P/Bld) [Vol rate/Area] mL/min/{1.73_m2} Normal >60 [facility] Comment on above: Performed By: #### 4 5506, 52777, 23336, 61205, 80686, 27456 #### [facility] [address] [place] [address], [place] Glucose [Mass/Vol] 139 mg/dL High 70-100 [facility] Comment on above: Performed By: #### 4 5506, 26005, 05233, 86742, 61830, 81570 #### [facility] [address] [place] [address], [place] Potassium [Moles/Vol] 5.1 mmol/L Normal 3.5-5.1 [facility] Comment on above: Performed By: #### 4 5506, 09586, 92168, 60640, 86406, 44108 #### [facility] [address] [place] [address], [place] Protein [Mass/Vol] 6.5 g/dL Normal 6.0-8.3 [facility] Comment on above: Performed By: #### 4 5506, 79926, 88063, 39945, 44031, 52901 #### [facility] [address] [place] [address], [place] Sodium [Moles/Vol] 133 mmol/L Low 136-145 [facility] Comment on above: Performed By: #### 4 5506, 70619, 53408, 96256, 37157, 75177 #### [facility] [address] [place] [address], [facility] Urea nitrogen [Mass/Vol] 11 mg/dL Normal 7-25 [facility] Comment on above: Performed By: #### 4 [id number], 90385, 32241, 72992, 47275, 40126 #### [facility] [address] [place] [address], [place] DIRECT BILIon 04-19-2021 Bilirubin.direct [Mass/Vol] 0.1 mg/dL Normal 0.0-0.2 [facility] Comment on above: Performed By: #### 4 [id number], 57340, 44397, 95275, 90792, 75872 #### [facility] [address] [place] [address], [facility] [place] LIPID PROFILEon 04-19-2021 Cholesterol [Mass/Vol] 82 mg/dL Low 120-200 [facility] Comment on above: Result Comment: CHOL ESTEROL REFERENCE RANGE: 20 YEARS AND OLDER CARDIOVASCULAR RISK Less than 200 mg/dl Low Risk 200 to 239 mg/dl Borderline Risk 240 mg/dl and greater High Risk Performed By: #### 4 5506, 27837, 67125, 23433, 23975, 64023 #### [facility] [address] [place] [address], [facility] [place] Cholesterol in HDL [Mass/Vol] 38 mg/dL Normal 23-92 [facility] Comment on above: Result Comment: Slig ht variation in normal range could be due to gender and/or age. HDL CHOLESTEROL REFERENCE RANGE: 20 years and older Cardiovascular Risk > or =60 mg/dL Desirable 40 TO 59 mg/dL Low Risk <40 mg/dL High Risk Performed By: #### 4 5506, 03733, 43724, 76586, 01101, 79064 #### [facility] [address] [place] [address], [place] Cholesterol in LDL [Mass/Vol] 25 mg/dL Normal 0-130 [facility] Comment on above: Result Comment: LDL IS A CALCULATION LDL IS ONLY VALID IF THE TRIG IS LESS THAN 400. Performed By: #### 4 5506, 04053, 04655, 79604, 87532, 95489 #### [facility] [address] Cholesterol.total/Cho lesterol in HDL [Mass ratio] 2.2 {ratio} Normal .0-4.5 [facility] Comment on above: Performed By: #### 4 5506, 23242, 39164, 72159, 14215, 81172 #### [facility] [address] [facility] [address] NON-HDL CHOLESTEROL 44 mg/dL Normal [facility] Comment on above: Performed By: #### 4 5506, 92558, 82132, 80950, 46178, 44817 #### [facility] [address] [facility] [address] Triglyceride [Mass/Vol] 93 mg/dL Normal 40-149 [facility] Comment on above: Result Comment: TRIG LYCERIDE REFERENCE RANGE: 20 YEARS AND OLDER CARDIOVASCULAR RISK LESS THAN 150 mg/dl LOW RISK 150 TO 199 mg/dl BORDERLINE RISK 200 mg/dl AND GREATER HIGH RISK Performed By: #### 4 5506, 51377, 55457, 46533, 43590, 45436 #### [facility] [address] [facility] VLDL CHOL 19 mg/dL Normal 0-40 [facility] Comment on above: Performed By: #### 4 5506, 58500, 67362, 78576, 10029, 57760 #### [facility] [address] [facility] [place] [address], [facility] [place] MAGNESIUM BLOODon 04-19-2021 Magnesium [Mass/Vol] 1.8 mg/dL Low 1.9-2.7 [facility] Comment on above: Performed By: #### 4 5506, 62783, 26609, 73876, 68910, 65595 #### [facility] [address] [facility] [place] [address], [facility] [place] PHOSPHORUS BLOODon Phosphate [Mass/Vol] 3.0 mg/dL Normal 2.5-5.0 [facility] Comment on above: Performed By: #### 4 5506, 54013, 28542, 11124, 80862, 70331 #### [facility] [address] [place] [place] [address], [facility] [place] PROSPERAon 04-19-2021 PROSPERA KIT Results to be mailed directly to physician's office by reference lab. Normal [facility] Comment on above: Result Comment: Test performed by [id number] [place] [address] No result expected. For billing and tracking purposes only. Specimen collected for transplant patient and sent to [facility] per Dr instructions. No charge. Performed By: #### 4 5506, 36321, 24167, 80802, 76497, 27788 #### [facility] 3000 [facility]. [address] RESULT Results to be mailed directly to physician's office by reference lab. Normal [facility] Comment on above: Performed By: #### 4 5506, 76470, 88448, 15450, 78169, 14862 #### [facility] 3000 [facility]. [address] TACROLIMUSon 04-19-2021 Tacrolimus (Bld) [Mass/Vol] 7.7 ng/mL Normal 5.0-20.0 [facility] Comment on above: Result Comment: The [employer] Tacrolimus assay is a delayed one-step immunoassay for the quantitative determination of tacrolimus in human whole blood using the chemiluminescent microparticle immunoassay (CMIA) technology with flexible assay protocols, referred to as Chemiflex. Performed By: #### 4 5506, 17654, 07905, 07965, 89613, 96052 #### [facility] [address] [facility] [place] [address], [facility] [place] URIC ACID BLOODon 04-19-2021 Urate [Mass/Vol] 7.9 mg/dL High 4.4-7.6 [facility] Comment on above: Performed By: #### 4 5506, 78601, 62278, 65179, 05330, 04756 #### [facility] [address] CBC W/DIFFon 04-11-2021 ABS IMM GRANS 0.0 10*3/uL Normal 0.0-0.2 [facility] Comment on above: Performed By: #### 4 5506, 15689, 18352, 17672, 24849, 83308 #### [facility] [address] ABS NEUTROPHILS 4.5 10*3/uL Normal 1.6-7.6 [facility] Comment on above: Performed By: #### 4 5506, 55118, 06111, 68586, 46349, 95783 #### [facility] [address] Basophils (Bld) [#/Vol] 0.0 10*3/uL Normal 0.0-0.2 [facility] Comment on above: Performed By: #### 4 5506, 51064, 04056, 23706, 11399, 96865 #### [facility] [address] Basophils/100 WBC (Bld) 0.5 % Normal 0.0-1.0 [facility] Comment on above: Performed By: #### 4 5506, 34121, 98517, 09177, 96886, 53511 #### [facility] [address] Eosinophils (Bld) [#/Vol] 0.2 10*3/uL Normal 0.0-0.5 [facility] Comment on above: Performed By: #### 4 5506, 17557, 39441, 13508, 81988, 09715 #### [facility] [address] [place] [address], [facility] [place] Eosinophils/100 WBC (Bld) 3.1 % Normal 0.0-6.0 [facility] Comment on above: Performed By: #### 4 5506, 39310, 67659, 40536, 20818, 67545 #### [facility] [address] Erythrocyte distribution width (RBC) [Ratio] 13.4 % Normal 11.5-15.0 [facility] Comment on above: Performed By: #### 4 5506, 02783, 90659, 57589, 98876, 63142 #### [facility] [address] Hematocrit (Bld) [Volume fraction] 35.5 % Low 39.0-50.0 [facility] Comment on above: Performed By: #### 4 5506, 86375, 36561, 67099, 62489, 76131 #### [facility] [address] [facility] [address] Hemoglobin (Bld) [Mass/Vol] 11.7 g/dL Low 13.0-17.0 [facility] Comment on above: Performed By: #### 4 5506, 39808, 24610, 45417, 44849, 46399 #### [facility] [address] [place] [place] [address], [facility] [place] IMMATURE GRANS 0.6 % Normal 0.0-1.0 [facility] Comment on above: Performed By: #### 4 5506, 79580, 64444, 00412, 69397, 90232 #### [facility] [address] [place] [address], [facility] [place] Lymphocytes (Bld) [#/Vol] 0.8 10*3/uL Low 1.2-4.0 [facility] Comment on above: Performed By: #### 4 5506, 64970, 41426, 24239, 18922, 22090 #### [facility] [address] [place] [address], [facility] [place] Lymphocytes/100 WBC (Bld) 12.9 % Low 20.0-45.0 [facility] Comment on above: Performed By: #### 4 5506, 76750, 72999, 28165, 25271, 96714 #### [facility] [address] [place] [address], [facility] [place] MCH (RBC) [Entitic mass] 29.2 pg Normal 27.0-33.0 [facility] Comment on above: Performed By: #### 4 5506, 14639, 64296, 49803, 98194, 26918 #### [facility] [address] MCHC (RBC) [Mass/Vol] 33.0 g/dL Normal 32.0-35.0 [facility] Comment on above: Performed By: #### 4 5506, 68950, 50306, 58362, 23117, 29551 #### [facility] [address] [facility] [address], [facility] [place] MCV (RBC) [Entitic vol] 88.5 fL Normal 82.0-98.0 [facility] Comment on above: Performed By: #### 4 5506, 19589, 85929, 03855, 40186, 14919 #### [facility] [address] [facility] [address], [facility] [place] Monocytes (Bld) [#/Vol] 0.6 10*3/uL Normal 0.1-1.0 [facility] Comment on above: Performed By: #### 4 5506, 78003, 21589, 58049, 46798, 29179 #### [facility] [address] [place] [address], [facility] [place] MONOS 10.3 % Normal 5.0-12.0 [facility] Comment on above: Performed By: #### 4 5506, 73358, 35637, 97096, 84986, 87421 #### [facility] [address] [place] [address], [facility] [place] Neutrophils/100 WBC (Bld) 72.6 % High 40.0-72.0 [facility] Comment on above: Performed By: #### 4 5506, 67136, 96983, 77881, 66555, 18954 #### [facility] [address] [facility] [place] [address], [facility] [place] Nucleated RBC/100 WBC (Bld) [Ratio] 0 % Normal 0-0 [facility] Comment on above: Performed By: #### 4 5506, 06465, 84765, 62977, 43035, 25070 #### [facility] [address] [facility] [place] [id number], [facility] [place] PLAT CNT 272 10*3/uL Normal 150-400 [facility] Comment on above: Performed By: #### 4 5506, 15414, 73548, 94588, 06303, 36093 #### [facility] [address] [facility] [place] [address], [facility] [place] RBC (Bld) [#/Vol] 4.01 10*6/uL Low 4.20-5.70 [facility] Comment on above: Performed By: #### 4 5506, 45764, 54092, 04250, 78612, 02025 #### [facility] [address] [facility] [place] [address], [place] WBC (Bld) [#/Vol] 6.22 10*3/uL Normal 4.00-10.60 [facility] Comment on above: Performed By: #### 4 5506, 21835, 24397, 16287, 39400, 93119 #### [facility] [address] [place] [address], [place] COMP METABOLIC PANELon 12-01 -2021 Albumin [Mass/Vol] 4.3 g/dL Normal 3.5-5.7 [facility] Comment on above: Performed By: #### 4 5506, 83763, 47133, 85208, 16743, 11873 #### [facility] [address] [place] [address], [place] ALKALINE PHOSPH 115 IU/L High 34-104 [facility] Comment on above: Performed By: #### 4 5506, 35726, 64261, 96904, 08555, 19183 #### [facility] [address] [place] [address], [place] ALT [Catalytic activity/Vol] 16 U/L Normal 7-52 [facility] Comment on above: Performed By: #### 4 5506, 21938, 91702, 34382, 69176, 87006 #### [facility] [address] [place] [address], [place] AST [Catalytic activity/Vol] 15 U/L Normal 13-39 [facility] Comment on above: Performed By: #### 4 5506, 08480, 16129, 24953, 86971, 63649 #### [facility] [address] [place] [address], [place] Bilirubin [Mass/Vol] 0.6 mg/dL Normal 0.3-1.0 [facility] Comment on above: Performed By: #### 4 5506, 30550, 89211, 74492, 05003, 87488 #### [facility] [address] [place] [address], [place] Calcium [Mass/Vol] 10.3 mg/dL Normal 8.6-10.3 [facility] Comment on above: Performed By: #### 4 5506, 55678, 11550, 22339, 00684, 88158 #### [facility] [address] [place] [address], [place] Chloride [Moles/Vol] 97 mmol/L Low 98-107 [facility] Comment on above: Performed By: #### 4 5506, 40961, 47818, 32224, 19250, 64660 #### [facility] [address] [place] [address], [place] CO2 [Moles/Vol] 26 mmol/L Normal 21-31 [facility] Comment on above: Performed By: #### 4 5506, 28108, 03529, 40314, 32060, 35341 #### [facility] [address] [place] [address], [place] Creatinine [Mass/Vol] 0.93 mg/dL Normal 0.70-1.30 [facility] Comment on above: Performed By: #### 4 5506, 37761, 96184, 39962, 28484, 27066 #### [facility] [address] [place] [address], [place] GFR/1.73 sq M.predicted among blacks MDRD (S/P/Bld) [Vol rate/Area] mL/min/{1.73_m2} Normal >60 [facility] Comment on above: Performed By: #### 4 5506, 52730, 58178, 28555, 23135, 92642 #### [facility] [address] [place] [address], [place] GFR/1.73 sq M.predicted among non-blacks MDRD (S/P/Bld) [Vol rate/Area] mL/min/{1.73_m2} Normal >60 [facility] Comment on above: Performed By: #### 4 5506, 24751, 09290, 50893, 35171, 82169 #### [facility] [address] [place] [address], [place] Glucose [Mass/Vol] 136 mg/dL High 70-100 [facility] Comment on above: Performed By: #### 4 5506, 88967, 64224, 81702, 44969, 97937 #### [facility] [address] [place] [address], [facility] [place] Potassium [Moles/Vol] 5.2 mmol/L High 3.5-5.1 [facility] Comment on above: Performed By: #### 4 5506, 10199, 62357, 02944, 60063, 75361 #### [facility] [address] [place] [address], [facility] [place] Protein [Mass/Vol] 6.7 g/dL Normal 6.0-8.3 [facility] Comment on above: Performed By: #### 4 5506, 61272, 25948, 12660, 25720, 13778 #### [facility] [address] [place] [address], [facility] [place] Sodium [Moles/Vol] 129 mmol/L Low 136-145 [facility] Comment on above: Performed By: #### 4 5506, 35197, 08273, 51270, 89065, 18701 #### [facility] [address] [place] [address], [facility] [place] Urea nitrogen [Mass/Vol] 10 mg/dL Normal 7-25 [facility] Comment on above: Performed By: #### 4 5506, 23246, 54377, 93283, 78772, 19457 #### [facility] [address] [place] [id number], [facility] [place] DIRECT BILIon 04-11-2021 Bilirubin.direct [Mass/Vol] 0.2 mg/dL Normal 0.0-0.2 [facility] Comment on above: Performed By: #### 4 5506, 05982, 67116, 32026, 08218, 84246 #### [facility] [address] [place] [address], [place] LIPID PROFILEon 04-11-2021 Cholesterol [Mass/Vol] 84 mg/dL Low 120-200 [facility] Comment on above: Result Comment: CHOL ESTEROL REFERENCE RANGE: 20 YEARS AND OLDER CARDIOVASCULAR RISK Less than 200 mg/dl Low Risk 200 to 239 mg/dl Borderline Risk 240 mg/dl and greater High Risk Performed By: #### 4 5506, 50799, 93641, 26266, 99673, 48692 #### [facility] [address] [place] [address], [place] Cholesterol in HDL [Mass/Vol] 41 mg/dL Normal 23-92 [facility] Comment on above: Result Comment: Slig ht variation in normal range could be due to gender and/or age. HDL CHOLESTEROL REFERENCE RANGE: 20 years and older Cardiovascular Risk > or =60 mg/dL Desirable 40 TO 59 mg/dL Low Risk <40 mg/dL High Risk Performed By: #### 4 5506, 95353, 46665, 75249, 42386, 74050 #### [facility] [address] [place] [address], [place] Cholesterol in LDL [Mass/Vol] 34 mg/dL Normal 0-130 [facility] Comment on above: Result Comment: LDL IS A CALCULATION LDL IS ONLY VALID IF THE TRIG IS LESS THAN 400. Performed By: #### 4 5506, 59889, 29582, 82653, 48745, 06458 #### [facility] [address] [place] [address], [place] Cholesterol.total/Cho lesterol in HDL [Mass ratio] 2.0 {ratio} Normal .0-4.5 [facility] Comment on above: Performed By: #### 4 5506, 53298, 53845, 44089, 67384, 01548 #### [facility] [address] [place] [address], [place] NON-HDL CHOLESTEROL 43 mg/dL Normal [facility] Comment on above: Performed By: #### 4 5506, 28111, 25340, 76580, 85938, 83461 #### [facility] [address] [place] [address], [place] Triglyceride [Mass/Vol] 47 mg/dL Normal 40-149 [facility] Comment on above: Result Comment: TRIG LYCERIDE REFERENCE RANGE: 20 YEARS AND OLDER CARDIOVASCULAR RISK LESS THAN 150 mg/dl LOW RISK 150 TO 199 mg/dl BORDERLINE RISK 200 mg/dl AND GREATER HIGH RISK Performed By: #### 4 5506, 04968, 20067, 40629, 81335, 59424 #### [facility] [address] VLDL CHOL 9 mg/dL Normal 0-40 [facility] Comment on above: Performed By: #### 4 5506, 08382, 35217, 75032, 64063, 89708 #### [facility] [address] MAGNESIUM BLOODon 04-11-2021 Magnesium [Mass/Vol] 1.3 mg/dL Low 1.9-2.7 [facility] Comment on above: Performed By: #### 4 5506, 79242, 47700, 37463, 95420, 62673 #### [facility] [address] [place] [address], [facility] [place] PHOSPHORUS BLOODon Phosphate [Mass/Vol] 2.6 mg/dL Normal 2.5-5.0 [facility] Comment on above: Performed By: #### 4 5506, 18965, 41589, 99450, 61703, 76391 #### [facility] [address] TACROLIMUSon 04-11-2021 Tacrolimus (Bld) [Mass/Vol] 8.3 ng/mL Normal 5.0-20.0 [facility] Comment on above: Result Comment: The [employer] Tacrolimus assay is a delayed one-step immunoassay for the quantitative determination of tacrolimus in human whole blood using the chemiluminescent microparticle immunoassay (CMIA) technology with flexible assay protocols, referred to as Chemiflex. Performed By: #### 4 5506, 17819, 95973, 97170, 16408, 83824 #### [facility] [address] [facility]. [address] URIC ACID BLOODon 04-11-2021 Urate [Mass/Vol] 8.4 mg/dL High 4.4-7.6 [facility] Comment on above: Performed By: #### 4 5506, 98328, 15508, 13160, 74801, 00657 #### [facility] [address] [facility] [address] BK VIRUS QUANTITATION FOR PL ASMAon 02-16-2021 BKV Plasma Quantitation by PCR Not detected Normal [facility] Comment on above: Result Comment: Meth od: BK virus was measured by quantitative polymerase chain reaction using a fluorescent hydrolysis probe targeting the polyomavirus BK LYRIC WRITER-1 gene. The lower limit of quantitation of the assay is 500 copies of BK genome per milliliter of plasma or urine, and any detectable BK DNA below that level is reported as: Detected, <500 copies/ml. Serial BK virus measurement can be used to monitor disease activity. (Reference: Katina ramirezl. J CLIN MICRO 2004; 42:1897-6064). This test was developed and its performance characteristics determined by the [facility]. It has not been approved by the [place] Food and Drug Administration. However, such approval is not required for clinical implementation, and test results have been shown to be clinically useful. This laboratory is CAP accredited and CLIA certified to perform high complexity testing. Performed By: #### 4 5506, 14405, 30621, 26509, 49340, 90215 #### [facility] [address] [facility]. [address] BKV Plasma Quantitation Log by PCR Not detected Normal [facility] Comment on above: Performed By: #### 4 5506, 65349, 76172, 55314, 00851, 29205 #### [facility] [address] [facility] [address], [facility] [place] CBC W/DIFFon 02-16-2021 ABS IMM GRANS 0.1 10*3/uL Normal 0.0-0.2 [facility] Comment on above: Performed By: #### 4 5506, 42982, 90631, 62317, 35907, 52873 #### [facility] [address] [place] [address], [facility] [place] ABS NEUTROPHILS 5.8 10*3/uL Normal 1.6-7.6 [facility] Comment on above: Performed By: #### 4 5506, 58862, 18250, 16480, 98179, 76874 #### [facility] [address] [place] [address], [facility] [place] Basophils (Bld) [#/Vol] 0.0 10*3/uL Normal 0.0-0.2 [facility] Comment on above: Performed By: #### 4 5506, 72406, 73098, 28491, 18982, 95433 #### [facility] [address] [place] [address], [facility] [place] Basophils/100 WBC (Bld) 0.4 % Normal 0.0-1.0 [facility] Comment on above: Performed By: #### 4 5506, 46969, 42189, 41640, 66258, 86593 #### [facility] [address] [facility] [place] [address], [facility] [place] Eosinophils (Bld) [#/Vol] 0.3 10*3/uL Normal 0.0-0.5 [facility] Comment on above: Performed By: #### 4 5506, 85016, 30616, 70770, 86286, 75729 #### [facility] [address] [place] [address], [place] Eosinophils/100 WBC (Bld) 3.5 % Normal 0.0-6.0 [facility] Comment on above: Performed By: #### 4 5506, 09643, 50523, 54710, 63389, 78282 #### [facility] [address] [place] [address], [place] Erythrocyte distribution width (RBC) [Ratio] 13.6 % Normal 11.5-15.0 [facility] Comment on above: Performed By: #### 4 5506, 68424, 05937, 29743, 96976, 11764 #### [facility] [address] [facility]. [address] Hematocrit (Bld) [Volume fraction] 34.1 % Low 39.0-50.0 [facility] Comment on above: Performed By: #### 4 5506, 10915, 64214, 21110, 50426, 72001 #### [facility] [address] [facility] [address] Hemoglobin (Bld) [Mass/Vol] 11.6 g/dL Low 13.0-17.0 [facility] Comment on above: Performed By: #### 4 5506, 14770, 80418, 68698, 06285, 97580 #### [facility] [address] [facility]. [address] IMMATURE GRANS 0.8 % Normal 0.0-1.0 [facility] Comment on above: Performed By: #### 4 5506, 46938, 47928, 84261, 64057, 63521 #### [facility] [address] [facility]. [address] Lymphocytes (Bld) [#/Vol] 0.7 10*3/uL Low 1.2-4.0 [facility] Comment on above: Performed By: #### 4 5506, 94303, 95972, 70035, 94627, 52299 #### [facility] [address] [facility] [address], [facility] [place] Lymphocytes/100 WBC (Bld) 9.2 % Low 20.0-45.0 [facility] Comment on above: Performed By: #### 4 5506, 55229, 17524, 08748, 98399, 82861 #### [facility] [address] [place] [address], [facility] [place] MCH (RBC) [Entitic mass] 29.5 pg Normal 27.0-33.0 [facility] Comment on above: Performed By: #### 4 5506, 29859, 61357, 06969, 17692, 97865 #### [facility] [address] MCHC (RBC) [Mass/Vol] 34.0 g/dL Normal 32.0-35.0 [facility] Comment on above: Performed By: #### 4 5506, 14342, 59432, 04577, 02778, 23883 #### [facility] [address] MCV (RBC) [Entitic vol] 86.8 fL Normal 82.0-98.0 [facility] Comment on above: Performed By: #### 4 5506, 45941, 83618, 71503, 61596, 91143 #### [facility] [address] Monocytes (Bld) [#/Vol] 0.8 10*3/uL Normal 0.1-1.0 [facility] Comment on above: Performed By: #### 4 5506, 06255, 81908, 31790, 12032, 90631 #### [facility] [address] MONOS 10.3 % Normal 5.0-12.0 [facility] Comment on above: Performed By: #### 4 5506, 01620, 75820, 37412, 24605, 75709 #### [facility] [address] [place] [address], [facility] [place] Neutrophils/100 WBC (Bld) 75.8 % High 40.0-72.0 [facility] Comment on above: Performed By: #### 4 5506, 92395, 73385, 71622, 35881, 75079 #### [facility] [address] Nucleated RBC/100 WBC (Bld) [Ratio] 0 % Normal 0-0 [facility] Comment on above: Performed By: #### 4 5506, 07223, 39810, 89579, 56449, 23514 #### [facility] 3000 [facility]. [address] PLAT CNT 256 10*3/uL Normal 150-400 [facility] Comment on above: Performed By: #### 4 5506, 10504, 78872, 37071, 53081, 23471 #### [facility] [address] RBC (Bld) [#/Vol] 3.93 10*6/uL Low 4.20-5.70 [facility] Comment on above: Performed By: #### 4 5506, 69297, 11599, 05578, 95181, 78730 #### [facility] [address] WBC (Bld) [#/Vol] 7.65 10*3/uL Normal 4.00-10.60 [facility] Comment on above: Performed By: #### 4 5506, 96201, 44579, 53552, 54826, 26690 #### [facility] 3000 [facility]. [address] COMP METABOLIC PANELon 02-16 Albumin [Mass/Vol] 4.6 g/dL Normal 3.5-5.7 [facility] Comment on above: Performed By: #### 0 0121, 56605, 80581, 60432, 04254, 41040, 12381, 36118 #### [facility] [address] [facility]. [address] ALKALINE PHOSPH 136 IU/L High 34-104 [facility] Comment on above: Performed By: #### 0 0121, 70870, 62491, 17667, 83065, 04461, 86609, 68251 #### [facility] [address] [place] [address], [place] ALT [Catalytic activity/Vol] 22 U/L Normal 7-52 [facility] Comment on above: Performed By: #### 0 0121, 32165, 03821, 61984, 57019, 43256, 28839, 93411 #### [facility] [address] [place] [address], [place] AST [Catalytic activity/Vol] 18 U/L Normal 13-39 [facility] Comment on above: Performed By: #### 0 0121, 74958, 80643, 04434, 55246, 78071, 82656, 29803 #### [facility] [address] [place] [address], [place] Bilirubin [Mass/Vol] 0.5 mg/dL Normal 0.3-1.0 [facility] Comment on above: Performed By: #### 0 0121, 11746, 46870, 97239, 01888, 06896, 95611, 97376 #### [facility] [address] [place] [address], [place] Calcium [Mass/Vol] 10.5 mg/dL High 8.6-10.3 [facility] Comment on above: Performed By: #### 0 0121, 25166, 11040, 77988, 58998, 42005, 20372, 30365 #### [facility] [address] [place] [address], [place] Chloride [Moles/Vol] 94 mmol/L Low 98-107 [facility] Comment on above: Performed By: #### 0 0121, 20259, 92512, 85410, 62603, 96370, 36167, 86467 #### [facility] [address] [place] [address], [place] CO2 [Moles/Vol] 28 mmol/L Normal 21-31 [facility] Comment on above: Performed By: #### 0 0121, 95137, 80158, 22809, 47990, 10986, 82990, 19602 #### [facility] [address] [place] [address], [place] Creatinine [Mass/Vol] 0.93 mg/dL Normal 0.70-1.30 [facility] Comment on above: Performed By: #### 0 0121, 07490, 19123, 00086, 30714, 81392, 69896, 16864 #### [facility] [address] [place] [address], [place] GFR/1.73 sq M.predicted among blacks MDRD (S/P/Bld) [Vol rate/Area] mL/min/{1.73_m2} Normal >60 [facility] Comment on above: Performed By: #### 0 0121, 63256, 63264, 06996, 30031, 89953, 29168, 16645 #### [facility] [address] [place] [address], [place] GFR/1.73 sq M.predicted among non-blacks MDRD (S/P/Bld) [Vol rate/Area] mL/min/{1.73_m2} Normal >60 [facility] Comment on above: Performed By: #### 0 0121, 56931, 48018, 55269, 09804, 16758, 90840, 81920 #### [facility] [address] [place] [address], [place] Glucose [Mass/Vol] 147 mg/dL High 70-100 [facility] Comment on above: Performed By: #### 0 0121, 12726, 30812, 69158, 43029, 18196, 74393, 28854 #### [facility] [address] [place] [address], [place] Potassium [Moles/Vol] 4.6 mmol/L Normal 3.5-5.1 [facility] Comment on above: Performed By: #### 0 0121, 00532, 31134, 36801, 63478, 42087, 85530, 71716 #### [facility] [address] [place] [address], [facility] Protein [Mass/Vol] 7.2 g/dL Normal 6.0-8.3 [facility] Comment on above: Performed By: #### 0 0121, 84182, 30182, 12202, 89112, 70670, 32894, 31881 #### [facility] [address] [place] [address], [facility] Sodium [Moles/Vol] 129 mmol/L Low 136-145 [facility] Comment on above: Performed By: #### 0 0121, 42156, 65045, 03464, 98648, 80881, 96457, 57605 #### [facility] [address] [place] [address], [facility] Urea nitrogen [Mass/Vol] 15 mg/dL Normal 7-25 [facility] Comment on above: Performed By: #### 0 0121, 25526, 52408, 59096, 46849, 52933, 60812, 12640 #### [facility] [address] [place] [address], [facility] DIRECT BILIon 02-16-2021 Bilirubin.direct [Mass/Vol] 0.2 mg/dL Normal 0.0-0.2 [facility] Comment on above: Performed By: #### 4 5506, 49021, 94063, 01291, 46191, 29886 #### [facility] [address] [place] [address], [place] HEMOGLOBIN A1Con 02-16-2021 Glucose [Moles/Vol] 154 mmol/L Normal [facility] Comment on above: Performed By: #### 4 5506, 31406, 01628, 98368, 52647, 33980 #### [facility] [address] [place] [address], [facility] HbA1c (Bld) [Mass fraction] 7.0 % High 4.0-6.0 [facility] Comment on above: Performed By: #### 4 5506, 29542, 86325, 38282, 01505, 98702 #### [facility] [address] [place] [address], [facility] LIPID PROFILEon 02-16-2021 Cholesterol [Mass/Vol] 78 mg/dL Low 120-200 [facility] Comment on above: Result Comment: CHOL ESTEROL REFERENCE RANGE: 20 YEARS AND OLDER CARDIOVASCULAR RISK Less than 200 mg/dl Low Risk 200 to 239 mg/dl Borderline Risk 240 mg/dl and greater High Risk Performed By: #### 0 0121, 39588, 78709, 40492, 32299, 85500, 42890, 15533 #### [facility] [address] [place] [address], [facility] Cholesterol in HDL [Mass/Vol] 41 mg/dL Normal 23-92 [facility] Comment on above: Result Comment: Slig ht variation in normal range could be due to gender and/or age. HDL CHOLESTEROL REFERENCE RANGE: 20 years and older Cardiovascular Risk > or =60 mg/dL Desirable 40 TO 59 mg/dL Low Risk <40 mg/dL High Risk Performed By: #### 0 0121, 38163, 80681, 96232, 83705, 98197, 37780, 74866 #### [facility] [address] [place] [address], [facility] Cholesterol in LDL [Mass/Vol] 28 mg/dL Normal 0-130 [facility] Comment on above: Result Comment: LDL IS A CALCULATION LDL IS ONLY VALID IF THE TRIG IS LESS THAN 400. Performed By: #### 0 0121, 83237, 01080, 21170, 36748, 25171, 66360, 72161 #### [facility] [address] [place] [address], [place] Cholesterol.total/Cho lesterol in HDL [Mass ratio] 1.9 {ratio} Normal .0-4.5 [facility] Comment on above: Performed By: #### 0 0121, 87746, 95425, 83916, 16017, 72225, 06817, 49227 #### [facility] [address] NON-HDL CHOLESTEROL 37 mg/dL Normal [facility] Comment on above: Performed By: #### 0 0121, 20062, 72295, 64565, 64031, 91224, 03046, 71182 #### [facility] [address] Triglyceride [Mass/Vol] 44 mg/dL Normal 40-149 [facility] Comment on above: Result Comment: TRIG LYCERIDE REFERENCE RANGE: 20 YEARS AND OLDER CARDIOVASCULAR RISK LESS THAN 150 mg/dl LOW RISK 150 TO 199 mg/dl BORDERLINE RISK 200 mg/dl AND GREATER HIGH RISK Performed By: #### 0 0121, 40100, 78382, 60937, 25130, 41102, 22877, 93660 #### [facility] [address] VLDL CHOL 9 mg/dL Normal 0-40 [facility] Comment on above: Performed By: #### 0 0121, 32026, 52573, 22946, 37053, 98292, 71137, 57345 #### [facility] [address] MAGNESIUM BLOODon 02-16-2021 Magnesium [Mass/Vol] 1.5 mg/dL Low 1.9-2.7 [facility] Comment on above: Performed By: #### 4 5506, 98495, 17608, 19930, 63676, 82595 #### [facility] [address] [place] [address], [facility] PHOSPHORUS BLOODon Phosphate [Mass/Vol] 2.4 mg/dL Low 2.5-5.0 [facility] Comment on above: Performed By: #### 0 0121, 79691, 05262, 10052, 05311, 87467, 54225, 97968 #### [facility] [address] PROSPERAon 02-16-2021 PROSPERA KIT Results to be mailed directly to physician's office by reference lab. Normal [facility] Comment on above: Result Comment: Test performed by [id number] [place] [address] No result expected. For billing and tracking purposes only. Specimen collected for transplant patient and sent to requesting hospital per Dr instructions. No charge. Performed By: #### 4 5506, 48084, 14319, 63991, 12654, 30496 #### [facility] [address] [facility]. [address] RESULT Results to be mailed directly to physician's office by reference lab. Normal [facility] Comment on above: Performed By: #### 4 5506, 47069, 82921, 67987, 84993, 18490 #### [facility] [address] [facility]. [address] PTH INTACTon 02-16-2021 PTH INTACT 123 pg/mL High 12-88 [facility] Comment on above: Performed By: #### 4 5506, 73006, 05267, 30682, 43489, 73552 #### [facility] [address] [facility]. [address] SINGLE ANTIGEN CLASS 1on METHOD Class I Single Antigen Normal [facility] Comment on above: Order Comment: Some of [...] to frequency. Performed By: #### 4 5506, 06442, 76351, 74921, 02848, 20900 #### [facility] [address] [place], [place] [address] [place] [address] SINGLE ANTIGEN CLASS 2on COMMENTS Normal [facility] Comment on above: Order Comment: Some of [...] Antigen Microbeads Performed By: #### 4 5506, 51343, 37553, 02558, 62827, 76438 #### [facility] [address] [facility]. [address] Result Comment: No C lass I donor specific antibody identified Class I Antigen Microbeads METHOD Class II Single Antigen Normal [facility] Comment on above: Order Comment: Some of [...] to frequency. Performed By: #### 4 5506, 35874, 14249, 81405, 59474, 74176 #### [facility] [address] [place] [address], [facility] SIGNED BY Normal [facility] Comment on above: Order Comment: Some of [...] frequency. Result Comment: Jose A Lara, MS,CHT(IRINEO),MT(ASCP) Road Machine Runner, Transplant Immunology Performed By: #### 4 5506, 14045, 78864, 15197, 51078, 55615 #### [facility] [address] [facility]. [address] TACROLIMUSon 02-16-2021 Tacrolimus (Bld) [Mass/Vol] 7.0 ng/mL Normal 5.0-20.0 [facility] Comment on above: Result Comment: The [employer] Tacrolimus assay is a delayed one-step immunoassay for the quantitative determination of tacrolimus in human whole blood using the chemiluminescent microparticle immunoassay (CMIA) technology with flexible assay protocols, referred to as Chemiflex. Performed By: #### 4 5506, 42229, 52801, 72391, 65207, 85326 #### [facility] [address] TESTOSTERONE, FREE+SHBG+TOTA L ILon 02-16-2021 [place] Normal [facility] Comment on above: Result Comment: Test Performed by [employer] [address] [place] [address] - Released 02/16/2021 18:49 SEX HORM BIND GLOB 52 nmol/L Normal 11-80 [facility] Testosterone [Mass/Vol] 399 ng/dL Normal 220-1000 [facility] TESTOSTERONE, FREE 60.0 pg/mL Normal 47-244 [facility] Comment on above: Result Comment: The concentration of free testosterone is derived from a mathematical expression based on the constant for the binding of testosterone to albumin and/or sex hormone binding globulin. URIC ACID BLOODon 02-16-2021 Urate [Mass/Vol] 8.0 mg/dL High 4.4-7.6 [facility] Comment on above: Performed By: #### 0 0121, 29674, 76398, 04138, 75088, 73699, 57546, 95714 #### [facility] [address] [place] [address], [facility] VITAMIN D 25-HYDROXYon 02-16 VITAMIN D 25-OH 35.1 ng/mL Normal 30.0-80.0 [facility] Comment on above: Result Comment: >80. 0 Toxicity possible Performed By: #### 4 5506, 22401, 47639, 93642, 80421, 81020 #### [facility] [address] [place], [place] [address] [place] [address] Vital Signs Date Time Vital Sign Value Performing Clinician Facility 03-05-2022 09:30-0400 Diastolic blood pressure 74 mm[Hg] MD Jericho Mccarthy Work Phone: [facility] 03-05-2022 09:30-0400 Heart rate 58 /min MD Jericho Mccarthy Work Phone: [facility] 03-05-2022 09:30-0400 Respiratory rate 18 /min MD Jericho Mccarthy Work Phone: [facility] 03-05-2022 09:30-0400 SaO2% (BldA) [Mass fraction] 99 % MD Jericho Mccarthy Work Phone: [facility] 03-05-2022 09:30-0400 Systolic blood pressure 133 mm[Hg] MD Jericho Mccarthy Work Phone: [facility] 03-05-2022 07:01-0400 Body height 167.64 cm MD Jreicho Mccarthy Work Phone: [facility] 03-05-2022 07:01-0400 Body temperature 97.9 [degF] MD Jericho Mccarthy Work Phone: [facility] 03-05-2022 07:01-0400 Body weight 74.84 kg MD Jericho Mccarthy Work Phone: [facility] 01-21-2022 10:30-0400 Body height 167.64 cm Tj Wells Other [facility] 01-21-2022 10:30-0400 Body mass index (BMI) [Ratio] 26.47 kg/m2 Tj Maira Other [facility] 01-21-2022 10:30-0400 Body weight 74.39 kg Tj Wells Other [facility] 01-21-2022 10:30-0400 Diastolic blood pressure 71 mm[Hg] Tj Maira Other [facility] Other 01-21-2022 10:30-0400 Systolic blood pressure 148 mm[Hg] Tj Garciaormack Other [facility] Other Encounters Encounter Date Encounter Type Care Provider Facility Start: 10-31-2023 End: 10-31-2023 ambulatory SANTANA LANDIN [facility] Start: 08-25-2023 End: 08-25-2023 ambulatory JERICHO MCCARTHY Not Available Start: 07-09-2023 End: 07-09-2023 ambulatory PRICE MENDEZ [facility] Start: 05-22-2023 End: 05-22-2023 ambulatory JERICHO MCCARTHY Not Available Start: 05-19-2023 End: 05-19-2023 ambulatory JERICHO ABAD [facility] Start: 04-28-2023 Evaluation and management of inpatient ESTHER GARDUNO [facility] Start: 04-28-2023 Evaluation and management of inpatient PATRICIA SCHULZ [facility] Start: 04-27-2023 End: 04-30-2023 Evaluation and management of inpatient MENDY CLEMONS [facility] Start: 04-22-2023 End: 04-22-2023 ambulatory BENJA MCGHEE [facility] Start: 11-11-2022 End: 11-11-2022 ambulatory JERICHO ABAD [facility] Start: 10-03-2022 End: 10-04-[address] ALVAREZ MISC Facility:[facility] Start: 08-30-2022 End: 08-31-[address] ALVAREZ MISC Facility:[facility] Start: 08-01-2022 End: 08-02-2022 ambulatory DOCTOR MISC Facility:[facility] Start: 07-04-2022 End: 07-05-[address] ALVAREZ MISC Facility:[facility] Start: 05-23-2022 End: 05-24-[address] ALVAREZ MISC Facility:[facility] Start: 04-30-2022 End: 05-01-[address] ALVAREZ MISC Facility:[facility] Start: 04-03-2022 End: 04-04-[address] ALVAREZ MISC Facility:[facility] Start: 03-08-2022 End: 03-09-[address] NAGA BOSCH Facility:[facility] Start: 03-05-2022 End: 03-05-2022 ambulatory Tj Welsl Facility:[facility] Start: 03-05-2022 End: 03-05-2022 Admission to same day surgery center MD Jericho Mccartyh Work Phone: [facility] Start: 03-05-2022 End: 03-05-2022 ambulatory MD Jericho Mccarthy Work Phone: [facility] Work Phone: Start: 03-01-2022 End: 03-01-2022 ambulatory Tj Wells Facility:[facility] Start: 03-01-2022 End: 03-01-2022 ambulatory MD Jericho Mccarthy Work Phone: [facility] Work Phone: Start: 03-01-2022 End: 03-01-2022 Patient encounter procedure MD Jericho Mccarthy Work Phone: [facility] Start: 02-01-2022 End: 02-02-[address] DOCTOR MCCABE Facility:[facility] Start: 01-21-2022 End: 01-21-2022 ambulatory Tj Wells Other [facility] Other Start: 01-21-2022 Office outpatient ne w 45 minutes Tj ALBARRAN [facility] Start: 01-04-2022 End: 01-05-[address] [...] Date Care Activity Detail Author Start: 03-05-2022 [facility] Patient Education Colitis [facility] Work Phone: Immunizations Immunization Date Immunization Notes Care Provider Fa cility 04-30-2021 COVID-19 mRNA Bivale nt Booster (Pfizer) MD Jericho Mccarthy Work Phone: [facility] 08-01-2020 COVID-19 mRNA, Comirnaty (Pfizer) MD Jericho Mccarthy Work Phone: [facility] 07-12-2020 COVID-19 mRNA Comirnaty (Pfizer) MD Jericho Mccarthy Work Phone: [facility] 02-13-2017 influenza, seasonal, injectable Tj Wells Other [facility] Other 06-27-2016 influenza, seasonal, injectable Tj Wells Other [facility] Other 02-01-2016 pneumococcal polysaccharide vaccine, 23 valent Tj Wells Other [facility] Other Payers Date Payer Category Payer Private Health Insurance [id number] 2022 Self-pay [id number] 2022 Unknown [id number] 1958 Medicare [id number] 2.1 [id number] 1959 Private Health Insurance [id number] [id number] 1951 Unknown [id number] 2.16.84 0.1.896703.3.579.2.593 1950 Unknown [id number] 2.16.84 0.1.307724.3.579.2.593 1950 Unknown [id number] 2.16.84 0.1.458676.3.579.2.593 1951 Unknown [id number] 2.16.84 0.1.724480.3.579.2.593 1951 Unknown [id number] 2.16.84 0.1.733807.3.579.2.593 1951 Unknown [id number] 2.16.84 0.1.205921.3.579.2.593 1951 Unknown [id number] 2.16.84 0.1.170870.3.579.2.593 1951 Unknown [id number] 2.16.84 0.1.189323.3.579.2.593 1951 Unknown [id number] 2.16.84 0.1.868385.3.579.2.593 1951 Unknown [id number] 2.16.84 0.1.685888.3.579.2.593 1951 Unknown [id number] 2.16.84 0.1.847826.3.579.2.593 1951 Unknown [id number] 2.16.84 0.1.011002.3.579.2.593 1951 Unknown [id number] 2.16.84 0.1.034135.3.579.2.1259 1951 Unknown [id number] 2.16.84 0.1.263488.3.579.2.1259 Unknown [id number] 2.16.8 40.1.680424.3.579.2.531 Unknown [id number] 2.16.8 40.1.834125.3.579.2.531 Social History Date Type Detail Facility Unknown if ever smoked [facility] [employer] Other Sex Assigned At Sex Assigned At Bir th [facility] Other Start: 11-11-2019 End: 03-05-2022 Tobacco smoking status NHIS Ex-smoker (finding) [facility] Start: 1950 Sex Assigned At Male [facility] Medical Equipment Procedure Code Equipment Code Equipment Original Text Equipment Identifier Dates Creation or revision of arteriovenous fistula GRAFT ARTEGRAFT 6MM X 40CM FDA Start: 01-14-2017 Creation or revision of arteriovenous fistula GRAFT ARTEGRAFT 6MM X 40CM FDA Start: 01-14-2017 Goals Date Patient Goal Desired Activity /State Clinical Notes 09-09-2009 to 10-31-2023 Note Date & Type Note Facility 10-31-2023 Note Patient notified abo ut mag level of 1.3, he stated he saw the [employer]PERVIS[employer] here today and came up with a plan because he does not want an infusion. [facility] 07-09-2023 Note 07/10/23 Chief Complaint Patient presents with Kidney Follow-up Patient has no major concerns today PCP: Jericho Mccarthy MD Txp Referring: Preferred Pharmacy: [id number] - [place], [place] - [address] [facility] [address] [facility] [phone] [facility] [address] [facility] [address] [facility] [address] [place] [address] [address] [place] [address] Subjective Visit Vitals BP 124/56 (BP Location: [...] Dose Status aMILoride (Midamor) 5 mg tablet [id number] No Take 5 mg by mouth in the morning. Historical Provider, Not Taking Flag for Review aMILoride (Midamor) 5 mg tablet [id number] Yes Take 1 tablet (5 mg) by mouth in the morning. Jericho Abad NP Taking Active amLODIPine (Norvasc) 10 mg tablet [id number] Yes Take 1 tablet (10 mg) by mouth in the morning. Benja Mcghee MD Taking Active atorvastatin (Lipitor) 10 mg tablet [id number] Yes Take 1 tablet (10 mg) by mouth every other day. Gita Egan NP Taking Active [facility] [id number] Yes Test daily before all meals/snacks and once before bedtime. With 100 lancets and strips Esther Garduno MD Taking Active carvedilol (Coreg) 12.5 mg tablet [id number] Yes Take 1 tablet (12.5 mg) by mouth with breakfast and with evening meal. Gita Egan NP Taking Active cinacalcet (Sensipar) 30 mg tablet [id number] Yes Take 1 tablet every day by oral route. Praveena Cohen MD Taking Active furosemide (Lasix) 20 mg tablet [id number] Yes take 1 tablet by mouth once daily Naga Bosch MD Taking Active insulin glargine (Lantus Solostar U-100 Insulin) 100 unit/mL (3 mL) injection pen [id number] Yes Inject 20 Units under the skin at bedtime. Esther Garduno MD Taking Active isopropyl alcohoL 70 % towelette [id number] Yes Test daily before all meals/snacks and once before bedtime. Esther Garduno MD Taking Active lisinopril 20 mg tablet [id number] Yes Take 1 tablet (20 mg) by mouth in the morning. Benja Mcghee MD Taking Active magnesium oxide (Mag-Ox) 400 mg (241.3 mg magnesium) tablet [id number] Yes Take 2 tablets (800 mg) by mouth in the morning, at noon, and at bedtime. take 2 tablets by mouth three times a day with meals Jericho Aabd NP Taking Active metFORMIN (Glucophage) 500 mg tablet [id number] Yes Take 1 tablet (500 mg) by mouth with breakfast and with evening meal. Esther Garduno MD Taking Active mycophenolate (Myfortic) 180 mg EC tablet [id number] Yes Take 4 tablets (720 mg) by mouth in the morning and at bedtime. Jericho Abad NP Taking Active omeprazole OTC (PriLOSEC OTC) 20 mg EC tablet [id number] Yes Take 1 tablet (20 mg) by mouth before breakfast. Do not crush, chew, or split. Esther Garduno MD Taking Active pen needle, diabetic 31 gauge x 5/16 needle [id number] Yes Use to inject 1-4 times daily as directed. Esther Garduno MD Taking Active sildenafil (Revatio) 20 mg tablet [id number] Yes Take 1 tablet 3 times a day by oral route for 90 days. Benja Mcghee MD Taking Active sulfaSALAzine (Azulfidine) 500 mg EC tablet [id number] Yes Take 500 mg by mouth in the morning and at bedtime. Dane Kerr MD Taking Active tacrolimus (Prograf) 0.5 mg capsule [id number] Yes Take 1 capsule (0.5 mg) by mouth in the morning and at bedtime. Jericho Abad NP Taking Active Immunization History Administered Date(s) Administered Influenza, Seasonal, Quadrivalent, Adjuvanted 04/30/2021 Influenza, Unspecified 02/09/2017 Influenza, injectable, quadrivalent 02/09/2019 Influenza, seasonal, injectable 06/27/2016, 02/13/2017 Pfizer SARS-CoV-2 Vaccination 07/12/2020, 08/02/2020, 04/30/2021 Pneumococcal Polysaccharide PPV23 02/01/2016 Patient Active Problem List Diagnosis Cataract Congestive heart failure ([facility]/HCC) Coronary atherosclerosis End-stage renal disease (CMS/HCC) History of renal transplant Peripheral vascular disease ([facility]/HCC) Increased infection risk status post immunosuppressive therapy Multiple congenital cysts of kidney Moderate mixed hyperlipidemia not requiring statin therapy COLD (chronic obstructive lung disease) ([facility]/HCC) Essential hypertension, benign Pleurisy with effusion Polycystic kidney DAVID (acute kidney injury) ([facility]) Hypomagnesemia Family History Problem Relation Name Age of Onset Diabetes Mother Hyperten (more content not included)... [facility] 07-08-2023 Note Left message for pat ient to take one extra lasix 20 mg today and we will retest tomorrow. Per Dr Bobbi dhaliwal. [facility] 07-08-[address] dk dhaliwal, patient added to Dr Moya schedule tomorrow am due to critical low sodium level of 124. Patient notified and will arrive between 8:30 am and 9 am for labs. [facility] 05-19-2023 Note Per phone order of Petr woo MD, Mag IV 3 grams ordered Mag 1.3. BOP notified. Pt notified by phone, states he recently resumed the Amiloride. He is not certain he will agree to return for the infusion. States he reviewed the low Mag level today with Jericho Doran [employer] and was taking 8-9 tablets daily but is now reducing to Mag Oxide 800mg TID. [facility] 05-19-2023 Note 05/19/23 Chief Complaint Patient presents with Kidney Follow-up No concerns PCP: Jericho Mccarthy MD Txp Referring: Preferred Pharmacy: [id number] - [place], [place] - [address] [facility] [address] [facility] [id number] [facility] [address] [facility] [address] [facility] [address] [place] [address] [address] [place] [address] Subjective Visit Vitals BP 120/62 (BP Location: [...] Dose Status aMILoride (Midamor) 5 mg tablet [id number] Yes Take 5 mg by mouth in the morning. Historical Provider, Taking Active amLODIPine (Norvasc) 10 mg tablet [id number] Yes Take 1 tablet (10 mg) by mouth in the morning. Benja Mcghee MD Taking Active atorvastatin (Lipitor) 10 mg tablet [id number] Yes Take 1 tablet (10 mg) by mouth every other day. Gita Egan NP Taking Active blood-glucose meter misc [id number] Yes Test daily before all meals/snacks and once before bedtime. With 100 lancets and strips Esther Garduno MD Taking Active carvedilol (Coreg) 12.5 mg tablet [id number] Yes Take 1 tablet (12.5 mg) by mouth with breakfast and with evening meal. Gita Egan NP Taking Active cinacalcet (Sensipar) 30 mg tablet [id number] Yes Take 1 tablet every day by oral route. Praveena Cohen MD Taking Active furosemide (Lasix) 20 mg tablet [id number] Yes take 1 tablet by mouth once daily Naga Bosch MD Taking Active insulin glargine (Lantus Solostar U-100 Insulin) 100 unit/mL (3 mL) injection pen [id number] Yes Inject 20 Units under the skin at bedtime. Esther Garduno MD Taking Active isopropyl alcohoL 70 % towelette [id number] Yes Test daily before all meals/snacks and once before bedtime. Esther Garduno MD Taking Active lisinopril 20 mg tablet [id number] Yes Take 1 tablet (20 mg) by mouth in the morning. Benja Mcghee MD Taking Active magnesium oxide (Mag-Ox) 400 mg (241.3 mg magnesium) tablet [id number] Yes take 2 tablets by mouth three times a day with meals Woodrow Root MD Taking Active metFORMIN (Glucophage) 500 mg tablet [id number] Yes Take 1 tablet (500 mg) by mouth with breakfast and with evening meal. Esther Garduno MD Taking Active mycophenolate (Myfortic) 180 mg EC tablet [id number] Yes Take 4 tablets (720 mg) by mouth in the morning and at bedtime. Jericho Abad NP Taking Active omeprazole OTC (PriLOSEC OTC) 20 mg EC tablet [id number] Yes Take 1 tablet (20 mg) by mouth before breakfast. Do not crush, chew, or split. Esther Garduno MD Taking Active pen needle, diabetic 31 gauge x 5/16 needle [id number] Yes Use to inject 1-4 times daily as directed. Esther Garduno MD Taking Active sildenafil (Revatio) 20 mg tablet [id number] Yes Take 1 tablet 3 times a day by oral route for 90 days. Benja Mcghee MD Taking Active sulfaSALAzine (Azulfidine) 500 mg EC tablet [id number] Yes Take 500 mg by mouth in the morning and at bedtime. Dane Kerr MD Taking Active tacrolimus (Prograf) 0.5 mg capsule [id number] Yes Take 1 capsule (0.5 mg) by mouth in the morning and at bedtime. Jericho Abda NP Taking Active Immunization History Administered Date(s) [...] Brother ALS Brother (more content not included)... [facility] 05-14-2023 Note Patient states he mi ssed a few doses of magnesium and will get back started on and restart the amlodipine per Dr Dk dhaliwal. [facility] 04-30-2023 Note Attestation signed by Ananda Pan [...] as a transfer from outside hospital in [place] for concerns of possible DKA, hyponatremia, and [...] Dose Status aMILoride (Midamor) 5 mg tablet [id number] Take 1 tablet (5 mg) by mouth in the morning. Woodrow Root MD Active amLODIPine (Norvasc) 10 mg tablet [id number] Take 1 tablet (10 mg) by mouth in the morning. Benja Mcghee MD Active atorvastatin (Lipitor) 10 mg tablet [id number] Take 1 tablet (10 mg) by mouth every other day. Gita Egan NP Active carvedilol (Coreg) 12.5 mg tablet [id number] Take 1 tablet (12.5 mg) by mouth with breakfast and with evening meal. Gita Egan NP Active cinacalcet (Sensipar) 30 mg tablet [id number] Take 1 tablet every day by oral route. Praveena Cohen MD Active furosemide (Lasix) 20 mg tablet [id number] take 1 tablet by mouth once daily Naga Bosch MD Active lisinopril 20 mg tablet [id number] Take 1 tablet (20 mg) by mouth in the morning. Benja Mcghee MD Active magnesium oxide (Mag-Ox) 400 mg (241.3 mg magnesium) tablet [id number] take 2 tablets by mo (more content not included)... [facility] 04-30-2023 Note Hospital Medicine Discharge Summary Final Discharge Diagnosis: DKA Admission Diagnosis: DAVID (acute kidney injury) (CMS/[facility]) [N17.9] Hospital course: 72 y.o. male who came from home with DAVID with hyponatremia and uncontrolled hyperglycemia. This is a 72 years old gentleman with a medical history of end-stage renal disease s/p renal transplant 3 years ago here in [facility], peripheral vascular disease, pulmonary hypertension, CAD, and hypertension. Mixed hyperlipidemia, COPD, polycystic kidneys, cataract. Came in as transfer from the outside facility hospital in [place] for concern of possible uncontrolled hyperglycemia with [...] Center 05/02/2023 9:00 AM Ramos Hendrickson PA-C [facility] ENDOCR [facility] 05/19/2023 9:00 AM Jericho Abad NP TXP [...] These medications were sent to [facility] #[id number] - [place], [place] - [address] [facility] [address] [facility] [place] [address] blood-glucose meter mis insulin glargine 100 unit/mL [...] [phone] - (more content not included)... [facility] 04-29-2023 Note Hospital Medicine Daily Progress Note - 04/29/2023 11:18 AM; Room: [address] [place] [address] Admission: 04/27/2023 10:59 PM; Length of stay: 2 days THE HOSPITALIST TEAM PREFERS TO USE [employer] SARL CHAT FOR COMMUNICATION 7AM-7PM. IF I DO NOT RESPOND WITHIN 15 MINUTES, PLEASE PAGE ME/CALL THROUGH THE ALUMNI COORDINATOR. FROM 7PM-7AM, PLEASE PAGE [phone](COVR) Code Status: Full Code Barriers to Discharge: [...] Problems Principal Problem: DAVID (acute kidney injury) ([facility]) Assessment and Plan # DKA in newly [...] Academy of Nutrition and Dietetics and the [place] [employer] of Enteral and Parenteral Nutrition, meets [...] 0.67-0.73. Medial ki (more content not included)... [facility] 04-29-2023 Note Attestation signed by Ananda Pan [...] as a transfer from outside hospital in [place] for concerns of possible DKA, hyponatremia, and [...] Dose Status aMILoride (Midamor) 5 mg tablet [id number] Take 1 tablet (5 mg) by mouth in the morning. Woodrow Root MD Active amLODIPine (Norvasc) 10 mg tablet [id number] Take 1 tablet (10 mg) by mouth in the morning. Benja Mcghee MD Active atorvastatin (Lipitor) 10 mg tablet [id number] Take 1 tablet (10 mg) by mouth every other day. Gita Egan NP Active carvedilol (Coreg) 12.5 mg tablet [id number] Take 1 tablet (12.5 mg) by mouth with breakfast and with evening meal. Gita Egan NP Active cinacalcet (Sensipar) 30 mg tablet [id number] Take 1 tablet every day by oral route. Praveena Cohen MD Acti (more content not included)... [facility] 04-28-2023 Note Hospital Medicine Daily Progress Note - 04/28/2023 12:34 PM; Room: [facility]/5172-01 Admission: 04/27/2023 10:59 PM; Length of stay: 1 days THE HOSPITALIST TEAM PREFERS TO USE [employer] SARL CHAT FOR COMMUNICATION 7AM-7PM. IF I DO NOT RESPOND WITHIN 15 MINUTES, PLEASE PAGE ME/CALL THROUGH THE ALUMNI COORDINATOR. FROM 7PM-7AM, PLEASE PAGE [phone](COVR) Code Status: Full Code Barriers to Discharge: [...] Problems Principal Problem: DAVID (acute kidney injury) ([facility]) Assessment and Plan # DKA in newly [...] Academy of Nutrition and Dietetics and the [place] [employer] of Enteral and Parenteral Nutrition, meets [...] Cardiac silhouette is (more content not included)... [facility] 04-27-2023 Note . Hospital Medicine History and Physical 04/27/2023 11:16 PM THE HOSPITALIST TEAM PREFERS TO USE [employer] SARL CHAT FOR COMMUNICATION 7AM-7PM. IF I DO NOT RESPOND WITHIN 15 MINUTES, PLEASE PAGE ME/CALL THROUGH THE ALUMNI COORDINATOR. FROM 7PM-7AM, PLEASE PAGE [phone](COVR) Chief Complaint No chief complaint on file. History of Present Illness Wm Suarez is an 72 y.o. male who came from home with DAVID with hyponatremia and uncontrolled hyperglycemia. This is a 72 years old gentleman with a medical history of end-stage renal disease s/p renal transplant 3 years ago here in [facility], peripheral vascular disease, pulmonary hypertension, CAD, and hypertension. Mixed hyperlipidemia, COPD, polycystic kidneys, cataract. Came in as transfer from the outside facility hospital in [place] for concern of possible uncontrolled hyperglycemia with [...] Diagnosis Date Noted DAVID (acute kidney injury) (CMS/HCC) 04/27/2023 COLD (chronic obstructive lung disease) ([facility]) 04/16/2023 Essential hypertension, benign 04/16/2023 Pleurisy with effusion 04/16/2023 Polycystic kidney 04/16/2023 Moderate mixed hyperlipidemia not requiring statin therapy 04/16/2022 Cataract 01/29/2022 Congestive heart failure ([facility]) 01/29/2022 Coronary atherosclerosis 01/29/2022 Multiple congenital cysts of kidney 01/29/2022 History of renal transplant 10/31/2021 Increased infection risk status post immunosuppressive therapy 10/31/2021 Peripheral vascular disease ([facility]) 01/23/2018 End-stage renal disease ([facility]) 07/22/2009 Assessment and Plan #Acute kidney injury [...] this hospital stay by a member of [facility]. Past Medical History Past Medical History: Diagnosis Date CHF (congestive heart failure) ([facility]) Chronic kidney disease Coronary artery disease Hypertension Pulmonary hypertension ([facility]) Past Surgical History Past Surgical History: Procedure [...] file Tobacco Use (more content not included)... [facility] 04-22-2023 Note [facility] Subjective Wm Suarez is a [...] overload/acute heart failure admission on 08/2018 at [facility]. He had couple of dialysis session [...] lower extremity edema. Cardiac catheterization 03/04/2019: 1. [id number] single-vessel coronary artery disease with 50% stenosis in the mid to distal circumflex and minimal disease in the LAD and RCA. 2. Moderate elevation of filling pressures. 3. Moderate pulmonary hypertension. 4. Preserved cardiac output and cardiac index. RA 8, RV 59/4, 12. PA (more content not included)... [facility] 04-02-2023 Note New standing lab ord er placed in today's outgoing mail. Following call from clinic [facility] that pt is @ [facility] for lab draws, faxed to [phone] new order and requested [place] fax all lab results to [place] [facility] as last monthly lab results were received September 2022. Pt notified order sent & mailed and to contact [place] [facility] monthly when labs are completed to confirm receipt or have testing @ [facility]. He acknowledged. Encouraged to FU next week with [place] transplant. [facility] 11-13-2022 Note Received call from mariam huntley inquiring about Amiloride. Rx sent as ordered on Friday. Pt mailed tips for diarrhea stating liquid Maalox is not helpful. States he is taking six Mag tablets every day. Reviewed probiotic and Miralax tip with pt by phone. Verbalized understanding. [facility] 11-11-2022 Note Updated Dk MOSES by phone today Reviewed Mag level 1.3 and per MD phone order start Amiloride 5mg every day and to watch K levels. Detailed voicemail left on home phone [phone] with new Rx, reason for change and to watch K levels. Tac pending. No voicemail on listed cell phone. Spoke with mohancici Haq Paul emergency contact [phone] who sets up his meds. She was advised of new RX and she stated she is unsure if pt is taking Mag Oxide due to side effects of diarrhea. Advised to resume dosing and discussed tips for diarrhea including liquid Maalox with each dose and she verbalized understanding (states she had kidney transplant and takes Mag). Plans to fill amiloride dosing. [facility] 11-11-2022 Note Notified pt that his Hgb AIC 8.5 and to contact PCP for improved glucose control to preserve health of kidney transplant and general health. Pt verbalized understanding. [facility] 11-11-2022 Note 11/11/22 Chief Complaint Patient presents with Kidney Follow-up 6 mo follow No concerns PCP: Jericho Mccarthy MD Txp Referring: Preferred Pharmacy: [facility] #[id number] - [place], [place] - [address] [facility] [address] [address] [facility] [place] - [id number] [address] Subjective Visit Vitals BP 134/61 (BP Location: Right arm, Patient Position: Sitting) Pulse 56 Temp 36.4 ???C (97.6 ???F) (Oral) Ht 1.676 m (5' 6 ) Wt 77.7 kg (171 lb 6.4 oz) BMI 27.66 kg/m??? Smoking Status Former BSA 1.9 m??? Allergies Allergen Reactions Nsaids (Non-Steroidal Anti-Inflammatory Drug) Medication Documentation Review Audit Reviewed by Judith Royal MA (Keycase Assembler) on 11/11/22 at 0830 Medication Order Taking? Sig Documenting Provider Last Dose Status amLODIPine (Norvasc) 10 mg tablet [id number] Yes Take 1 tablet (10 mg) by mouth in the morning. Benja Mcghee MD Taking Active atorvastatin (Lipitor) 10 mg tablet [id number] Yes Take 1 tablet (10 mg) by mouth every other day. Gita Egan NP Taking Active carvedilol (Coreg) 12.5 mg tablet [id number] Yes Take 1 tablet (12.5 mg) by mouth with breakfast and with evening meal. Gita Egan NP Taking Active cinacalcet (Sensipar) 30 mg tablet [id number] Yes Take 1 tablet every day by oral route. Praveena Cohen MD Taking Active furosemide (Lasix) 20 mg tablet [id number] Yes take 1 tablet by mouth once daily Naga Bosch MD Taking Active lisinopril 20 mg tablet [id number] Yes Take 1 tablet by mouth in the morning. Historical Provider, Taking Active magnesium oxide (Mag-Ox) 400 mg (241.3 mg magnesium) tablet [id number] Yes take 2 tablets by mouth three times a day with meals Woodrow Root MD Taking Active mycophenolate (Myfortic) 180 mg EC tablet [id number] Yes Take 4 tablets (720 mg) by mouth in the morning and at bedtime. Jericho Abad NP Taking Active sildenafil (Revatio) 20 mg tablet [id number] Yes Take 1 tablet 3 times a day by oral route for 90 days. Gita Egan NP Taking Active sulfaSALAzine (Azulfidine) 500 mg EC tablet [id number] Yes Take 500 mg by mouth in the morning and at bedtime. Historical Provider, Taking Active tacrolimus (Prograf) 0.5 mg capsule [id number] Yes Take 1 capsule (0.5 mg) by [...] hypertension, heart roshan (more content not included)... [facility] 03-05-2022 Procedure note [facility] 01-21-2022 Evaluation note Encounter Date Diagnosis Assessment Notes Jan, Diarrhea (ICD-10 - R19.7) Colonoscopy Okay to take Imodium - 1 tablet every morning Jan, Fecal urgency (ICD-10 - R15.2) [facility] [employer] Other 05-01-2010 History general Narrative - Reported* [...] Hospitalization History Kidney Issue; on transplant list ([facility]) 02/2018 Hospitalization History pulmonary embolism 0 [employer] [facility] [employer] Other Evaluation noteNo assessment information available [facility] Work Phone: Evaluation note* Diagnosis Onset Date Resolution Status Diarrhea acute [facility] Work Phone: Hospital Discharge instructions [...] if you have any problems. -Office number [phone] Work Phone: Reason for visit NarrativePATIENT REFERRED BY DR. MCCARTHY FOR EVALUATION AND TREATMENT OF DIARRHEASouth [place] logolineup Other Summary Purpose Family History No Family [...] section and content) DATE CREATED AUTHOR [facility]/2019 [facility] DATE CREATED AUTHOR AUTHOR'S ORGANIZ ATION 11/02/2021 [facility] DATE CREATED AUTHOR AUTHOR'S ORGANIZ ATION 03/12/2022 [facility] DATE CREATED AUTHOR AUTHOR'S ORGANIZ ATION 10/18/[address] [facility] DATE CREATED AUTHOR AUTHOR'S ORGANIZ ATION 08/25/2023 [facility] EPIC DATE CREATED AUTHOR AUTHOR'S ORGANIZ ATION 11/01/2023 [facility] Teams (unrecognized sec tion and content) [...] BE BASED ON THE PRIMARY CLINICAL RECORDS. [facility] provides no warranty or guarantee of the accuracy or completeness of information in this document.
[2023-12-05 07:18] LABS: Basophils Percent Auto 0.3 % (0.2-2.0); Eosinophils Absolute Auto 0.2 10^3/uL (0.0-0.7); Eosinophils Percent Auto 3.1 % (0.9-7.0); Hemoglobin 11.7 g/dL (14.0-18.0); Immature Granulocytes Abs Auto 0.03 10^3/uL (0.00-0.03); Immature Granulocytes Pct Auto 0.4 % (0.0-0.5); Lymphocytes Absolute Auto 0.9 10^3/uL (1.2-3.8); Lymphocytes Percent Auto 11.4 % (20.5-60.0); Mean Corpuscular HGB Conc 32.5 g/dL (29.9-35.2); Mean Corpuscular Hemoglobin 29.3 pg (25.9-34.0); Mean Corpuscular Volume 90.2 fL (80.0-94.0); Mean Platelet Volume 9.4 fL (9.5-13.5); Monocytes Absolute Auto 0.6 10^3/uL (0.3-0.8); Neutrophils Absolute Auto 5.9 10^3/uL (1.4-6.5); Neutrophils Percent Auto 76.8 % (43.0-75.0); Platelet Count 235 10^3/uL (150-450); Red Blood Count 3.99 10^6/uL (4.70-6.10); Red Cell Distribution Width 14.1 % (11.0-15.0); White Blood Count 7.7 10^3/uL (4.0-11.0)
[2023-12-05 07:56] LABS: Alanine Aminotransferase 14 U/L (16-63); Albumin Globulin Ratio 1.2; Albumin Level 3.8 g/dL (3.4-5.0); Alkaline Phosphatase 117 U/L (46-116); Anion Gap 12.5; Aspartate Amino Transferase 13 U/L (15-37); BUN Creatinine Ratio 17.6; Bilirubin Direct 0.1 mg/dL (0.0-0.2); Bilirubin Total 0.4 mg/dL (0.2-1.0); Carbon Dioxide 28.1 mmol/L (21.0-32.0); Chloride 101 mmol/L (98-107); Estimated GFR (African America >60 (>=60); Estimated GFR (Non-African Ame >60 (>=60); Globulin 3.3 g/dL; Glucose 99 mg/dL (74-106); Magnesium 1.6 mg/dL (1.8-2.4); Phosphorus 4.5 mg/dL (2.6-4.7); Potassium 4.6 mmol/L (3.5-5.1); Sodium 137 mmol/L (136-145); Total Protein 7.1 g/dL (6.4-8.2); Uric Acid 6.1 mg/dL (3.5-7.2)
[2023-12-09 00:06] LABS: Tacrolimus (FK506), Blood 4.6 ng/mL (2.0-20.0)
== END 2023-12-05 06:58 | disposition home or self-care (01) ==
LOC: LAB 06:59
PROVIDERS: PCP Family Medicine
DX: E13.9 Other specified diabetes mellitus without complications (principal); Z94.0 Kidney transplant status
CPT/HCPCS: 36415; 80053; 80197; 82248; 83735; 84100; 84550; 85025

== ENCOUNTER 2024-01-09 06:54 | Outpatient (OUT) | payer MEDICARE, OTHER, SELFPAY ==
--- OUTSIDE RECORDS SUMMARY | 2024-01-09 06:59 | XMS_ITS | CCD ---
Author Organization [facility] Care Team Providers Care Mails Supervisor Name Role Phone Tj Wells Unavailable MD Jericho Mccarthy Primary Care Provider MD Tj Wells Attending Provider [phone] Tj Wells Attending Unavailabl e NadJericho lofton Primary Care Unavailable Tj Wells Admitting Unavailabl e Maira, Tj Sullivan Admitting Unavailabl e Tj Wells Attending Unavailabl e Jericho Mccarthy Primary Care Unavailable MISC, DR ALVAREZ Attending Unavailable MISC, DR ALVAREZ Admitting Unavailable MISC, DR ALVAREZ Consulting Unavailable NADERER, DR JERICHO Floyd Primary Care Unavailable CHICKALOON, DR MERRITT Consulting Unavailable CHICKALOON, DR MERRITT Attending Unavailable CHICKALOON, DR MERRITT Admitting Unavailable NADERER, DR FERGUSON A Primary Care Unavailable MISC, DR ALVAREZ Attending Unavailable MISC, DR ALVAREZ Admitting Unavailable NADERER, DR FERGUSON A Primary Care Unavailable MISC, DR ALVAREZ Consulting Unavailable CHICKALOON, DR MERRITT Consulting Unavailable CHICKALOON, DR MERRITT Attending Unavailable NADERER, DR FERGUSON A Primary Care Unavailable CHICKALOON, DR MERRITT Admitting Unavailable MISC, DR ALVAREZ [...] Attending Unavailable HORANI, ESTHER Referring Unavailable KATKO, MENYD Referring Unavailable CHRISTIAN, GYPSY Admitting Unavailable HORANI, [...] to adverse reactions to drug (disorder) 2 [facility] Repository Medications Current Medications Medication Drug [...] 2 MCG IVP MWF DURING DIALYSIS PER [facility] (08/26/18) 5 ml sodium ferric gluconate complex 12.5 mg/ml injection (2 sources) Start: 07-08-2017 End: 03-05-2022 Sodium Ferric Gluconat-Sucrose (Ferrlecit) 62.5 mg/5 mL Solution Discontinued 125 MG IV Q14D July 08, 2017 1:00am March 05, 2022 7:07am RECEIVES FERRLECIT 125MG IVP EVERY OTHER FRIDAY (DOSE DUE 08/26/18 PER [facility]) Problems Active Problems Problem Classification [...] sources) Atherosclerotic heart disease of [place] coronary artery without angina pectoris; Translations: [Atherosclerotic heart disease of [place] coronary artery without angina pectoris] Onset: 04-22-20 [...] following other organ transplant; 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 [facility] 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 Other [...] 11-16-2021 Episodic Other aftercare (1 source) 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; Translations: [OTH DETENTION CURRENT [...] 24 Magnesium [Mass/Vol] 0.2 mg/dL Normal 0-0.2 [facility] Comment on above: Performed By: #### L [id number] #### [facility] ([facility]) [address] [place] [address] CBC WITH AUTO DIFFERENTIALon 07-09-2023 Basophils (Bld) [#/Vol] 0.03 10*3/uL Normal 0.00-0.20 [facility] Comment on above: Performed By: #### L [id number] #### [facility] ([facility]) [address] [place] [address] Basophils/100 WBC (Bld) 0.4 % Normal 0.0-1.0 [facility] Comment on above: Performed By: #### L [id number] #### [facility] ([facility]) [address] [place] [address] Eosinophils (Bld) [#/Vol] 0.16 10*3/uL Normal 0.00-0.50 [facility] Comment on above: Performed By: #### L [id number] #### [facility] ([facility]) [address] [place] [address] Eosinophils/100 WBC (Bld) 1.9 % Normal 0.0-6.0 [facility] Comment on above: Performed By: #### L [id number] #### [facility] [address] [place] [address] Erythrocyte distribution width (RBC) [Ratio] 14.0 % Normal 11.5-15.0 [facility] Comment on above: Performed By: #### L [id number] #### [facility] ([facility]) [address] [place] [address] ERYTHROCYTE MEAN CORPUSCULAR HEMOGLOBIN CONCENTRATION (G/DL) BY AUTOMATED 34.4 g/dL Normal 32.0-35.0 [facility] Comment on above: Performed By: #### L [id number] #### [facility] ([facility]) [address] [place] [address] Hematocrit (Bld) [Volume fraction] 32.3 % Low 39.0-55.0 [facility] Comment on above: Performed By: #### L [id number] #### [facility] ([facility]) [address] [place] [address] Hemoglobin (Bld) [Mass/Vol] 11.1 g/dL Low 13.0-17.0 [facility] Comment on above: Performed By: #### L [id number] #### [facility] [address] [place] [address] Immature granulocytes (Bld) [#/Vol] 0.05 10*3/uL Normal 0.00-0.20 [facility] Comment on above: Performed By: #### L [id number] #### [facility] ([facility]) [address] [place] [address] Immature granulocytes/100 WBC (Bld) 0.6 % Normal 0.0-1.0 [facility] Comment on above: Performed By: #### L [id number] #### [facility] ([facility]) [address] [place] [address] Lymphocytes (Bld) [#/Vol] 1.08 10*3/uL Low 1.20-4.00 [facility] Comment on above: Performed By: #### L [id number] #### [facility] ([facility]) [address] [place] [address] Lymphocytes/100 WBC (Bld) 12.7 % Low 20.0-45.0 [facility] Comment on above: Performed By: #### L [id number] #### [facility] [address] [place] [address] MCH (RBC) [Entitic mass] 30.0 pg Normal 27.0-33.0 [facility] Comment on above: Performed By: #### L [id number] #### [facility] [address] [place] [address] MCV (RBC) [Entitic vol] 87.3 fL Normal 82.0-98.0 [facility] Comment on above: Performed By: #### L [id number] #### [facility] ([facility]) [address] [place] [address] Monocytes (Bld) [#/Vol] 0.67 10*3/uL Normal 0.10-1.00 [facility] Comment on above: Performed By: #### L [id number] #### [facility] ([facility]) [address] [place] [address] Monocytes/100 WBC (Bld) 7.9 % Normal 5.0-12.0 [facility] Comment on above: Performed By: #### L [id number] #### [facility] ([facility]) [address] [place] [address] Neutrophils (Bld) [#/Vol] 6.49 10*3/uL Normal 1.60-7.60 [facility] Comment on above: Performed By: #### L [id number] #### [facility] ([facility]) [address] [place] [address] Neutrophils/100 WBC (Bld) 76.5 % High 40.0-72.0 [facility] Comment on above: Performed By: #### L [id number] #### [facility] [address] [place] [address] NRBC (PER 100 WBCS) BY AUTOMATED COUNT 0.0 % Normal 0 [facility] Comment on above: Performed By: #### L [id number] #### [facility] ([facility]) [address] [place] [address] PLATELETS (10*3/UL) IN BLOOD AUTOMATED COUNT 271 10*3/uL Normal 150-400 [facility] Comment on above: Performed By: #### L [id number] #### [facility] ([facility]) [address] [place] [address] RBC (Bld) [#/Vol] 3.70 10*6/uL Low 4.20-5.70 [facility] Comment on above: Performed By: #### L [id number] #### [facility] ([facility]) [address] [place] [address] WBC (Bld) [#/Vol] 8.48 10*3/uL Normal 4.00-10.60 [facility] Comment on above: Performed By: #### L [id number] #### [facility] ([facility]) [address] [place] [address] COMPREHENSIVE METABOLIC PANE Claudio 07-09-2023 Albumin [Mass/Vol] 4.4 g/dL Normal 3.5-5.7 [facility] Comment on above: Performed By: #### L [id number] #### [facility] ([facility]) [address] [place] [address] ALP [Catalytic activity/Vol] 82 U/L Normal 34-104 [facility] Comment on above: Performed By: #### L [id number] #### [facility] ([facility]) [address] [place] [address] ALT [Catalytic activity/Vol] 9 U/L Normal 7-52 [facility] Comment on above: Performed By: #### L [id number] #### [facility] ([facility]) [address] [place] [address] Anion gap [Moles/Vol] 15 mmol/L Normal 7-20 [facility] Comment on above: Performed By: #### L [id number] #### [facility] ([facility]) [address] [place] [address] AST [Catalytic activity/Vol] 14 U/L Normal 13-39 [facility] Comment on above: Performed By: #### L [id number] #### [facility] ([facility]) [address] [place] [address] Bilirubin [Mass/Vol] 0.5 mg/dL Normal 0.3-1.0 [facility] Comment on above: Performed By: #### L [id number] #### [facility] ([facility]) [address] [place] [address] Calcium [Mass/Vol] 9.1 mg/dL Normal 8.6-10.3 [facility] Comment on above: Performed By: #### L [id number] #### [facility] ([facility]) [address] [place] [address] Chloride [Moles/Vol] 93 mmol/L Low 98-107 [facility] Comment on above: Performed By: #### L [id number] #### [facility] ([facility]) [address] [place] [address] CO2 [Moles/Vol] 22 mmol/L Normal 21-31 [facility] Comment on above: Performed By: #### L [id number] #### [facility] ([facility]) [address] [place] [address] Creatinine [Mass/Vol] 1.01 mg/dL Normal 0.70-1.30 [facility] Comment on above: Performed By: #### L [id number] #### [facility] ([facility]) [address] [place] [address] GLOMERULAR FILTRATION RATE ML/MIN/1.73 SQ M.PREDICTED 79.5 mL/min/1.73m*2 Normal >60.0 [facility] Comment on above: Result Comment: [facility]???s estimated glomerular filtration rate (eGFR) will [...] individuals. Performed By: #### L [id number] #### [facility] [address] [place] [address] Glucose [Mass/Vol] 86 mg/dL Normal 70-100 [facility] Comment on above: Performed By: #### L [id number] #### [facility] ([facility]) [address] [place] [address] Potassium [Moles/Vol] 5.2 mmol/L High 3.5-5.1 [facility] Comment on above: Performed By: #### L [id number] #### [facility] ([facility]) [address] [place] [address] Protein [Mass/Vol] 6.8 g/dL Normal 6.0-8.3 [facility] Comment on above: Performed By: #### L [id number] #### [facility] ([facility]) [address] [place] [address] Sodium [Moles/Vol] 125 mmol/L Low 136-145 [facility] Comment on above: Performed By: #### L [id number] #### [facility] ([facility]) [address] [place] [address] Urea nitrogen [Mass/Vol] 17 mg/dL Normal 7-25 [facility] Comment on above: Performed By: #### L [id number] #### [facility] ([facility]) [address] [place] [address] UREA NITROGEN/CREATININE (MASS RATIO) IN SER/PLAS 16.8 Normal [facility] Comment on above: Performed By: #### L [id number] #### [facility] ([facility]) [address] [place] [address] Follow-Upon 07-09-2023 Follow-Up [id number] Wm Suarez 1950 M Date Provider Department Center 07/09/2023 [id number], SAMER TXP None Family History Problem Relation Age of Onset Diabetes Mother Hypertension Mother Coronary artery disease Mother Other Mother Cystic kidney disease Mother Hypertension Father Skin cancer Father Cystic kidney disease Father Cystic kidney disease Sister Heart disease Brother ALS Brother Cystic kidney disease Brother Family Status - Relation Status Age at Mother Father Sister Brother Level of Service:01853 UT OFFICE/OUTPATIENT ESTABLISHED LOW MDM 20 MIN Reason for Visit and Comments: Kidney Follow-up [] - Patient has no major concerns today Normal [facility] HEMOGLOBIN A1Con 07-09-2023 Glucose [Mass/Vol] 160 mg/dL Normal [facility] Comment on above: Performed By: #### L [id number] #### [facility] ([facility]) [address] [place] [address] HbA1c (Bld) [Mass fraction] 7.2 % High 4.0-6.0 [facility] Comment on above: Performed By: #### L [id number] #### [facility] ([facility]) [address] [place] [address] Labon 07-09-2023 Lab [id number] Wm Suarez 1950 M [facility] Provider Department Center 07/09/[id number] DRAW STATION KXT Draw [facility] Family History Problem Relation Age of Onset Diabetes Mother Hypertension Mother Coronary artery disease Mother Other Mother Cystic kidney disease Mother Hypertension Father Skin cancer Father Cystic kidney disease Father Cystic kidney disease Sister Heart disease Brother ALS Brother Cystic kidney disease Brother Family Status - Relation Status Age at Mother Father Sister Brother Normal [facility] MAGNESIUMon 07-09-2023 Magnesium [Mass/Vol] 1.5 mg/dL Low 1.9-2.7 [facility] Comment on above: Performed By: #### L [id number] #### [facility] ([facility]) [address] [place] [address] OSMOLALITYon 07-09-2023 OSMOLALITY MEASURED 272 mOsm/kg Low 275-295 [facility] Comment on above: Result Comment: Test Performed by [facility] [place] [address] - Released 07/09/2023 16:01 Performed By: #### L [id number] #### [facility] ([facility]) [address] [place] [address] Orders Onlyon 07-09-2023 Orders Only [id number] Wm Suarez 1950 M Date Provider Department [...] Age at Mother Father Sister Brother Normal [facility] PHOSPHORUSon 07-09-2023 Magnesium [Mass/Vol] 4.6 mg/dL Normal 2.5-5.0 [facility] Comment on above: Performed By: #### L [id number] #### [facility] ([facility]) [address] [place] [address] TACROLIMUS LEVELon Tacrolimus (Bld) [Mass/Vol] 4.3 ng/mL Low 5.0-20.0 [facility] Comment on above: Result Comment: The [employer] Tacrolimus assay is a delayed one-step immunoassay for the quantitative determination of tacrolimus in human whole blood using the chemiluminescent microparticle immunoassay (CMIA) technology with flexible assay protocols, referred to as Chemiflex. Performed By: #### L [id number] #### [facility] ([facility]) [address] [place] [address] URIC ACIDon 07-09-2023 Magnesium [Mass/Vol] 6.2 mg/dL Normal 4.4-7.6 [facility] Comment on above: Performed By: #### L [id number] #### [facility] ([facility]) [address] [place] [address] Orders Onlyon 06-11-2023 Orders Only [id number] Wm Suarez 1950 M Date Provider Department Center 06/11/2023 JERICHO [facility] Family History Problem Relation Age of Onset Diabetes Mother Hypertension Mother Coronary artery disease Mother Other Mother Cystic kidney disease Mother Hypertension Father Skin cancer Father Cystic kidney disease Father Cystic kidney disease Sister Heart disease Brother ALS Brother Cystic kidney disease Brother Family Status - Relation Status Age at Mother Father Sister Brother Normal [facility] BILIRUBIN, DIRECTon 05-19-19 Magnesium [Mass/Vol] 0.1 mg/dL Normal 0-0.2 [facility] Comment on above: Performed By: #### L [id number] #### [facility] ([facility]) [address] [place] [address] CBC WITH AUTO DIFFERENTIALon 05-19-2023 Basophils (Bld) [#/Vol] 0.03 10*3/uL Normal 0.00-0.20 [facility] Comment on above: Performed By: #### L [id number] #### [facility] [address] [place] [address] Basophils/100 WBC (Bld) 0.4 % Normal 0.0-1.0 [facility] Comment on above: Performed By: #### L [id number] #### [facility] ([facility]) [address] [place] [address] Eosinophils (Bld) [#/Vol] 0.18 10*3/uL Normal 0.00-0.50 [facility] Comment on above: Performed By: #### L [id number] #### [facility] ([facility]) [address] [place] [address] Eosinophils/100 WBC (Bld) 2.7 % Normal 0.0-6.0 [facility] Comment on above: Performed By: #### L [id number] #### [facility] ([facility]) [address] [place] [address] Erythrocyte distribution width (RBC) [Ratio] 13.7 % Normal 11.5-15.0 [facility] Comment on above: Performed By: #### L [id number] #### [facility] ([facility]) [address] [place] [address] ERYTHROCYTE MEAN CORPUSCULAR HEMOGLOBIN CONCENTRATION (G/DL) BY AUTOMATED 32.9 g/dL Normal 32.0-35.0 [facility] Comment on above: Performed By: #### L [id number] #### [facility] ([facility]) [address] [place] [address] Hematocrit (Bld) [Volume fraction] 34.0 % Low 39.0-55.0 [facility] Comment on above: Performed By: #### L [id number] #### [facility] ([facility]) [address] [place] [address] Hemoglobin (Bld) [Mass/Vol] 11.2 g/dL Low 13.0-17.0 [facility] Comment on above: Performed By: #### L [id number] #### [facility] [address] [place] [address] Immature granulocytes (Bld) [#/Vol] 0.02 10*3/uL Normal 0.00-0.20 [facility] Comment on above: Performed By: #### L [id number] #### [facility] ([facility]) [address] [place] [address] Immature granulocytes/100 WBC (Bld) 0.3 % Normal 0.0-1.0 [facility] Comment on above: Performed By: #### L [id number] #### [facility] ([facility]) [address] [place] [address] Lymphocytes (Bld) [#/Vol] 0.80 10*3/uL Low 1.20-4.00 [facility] Comment on above: Performed By: #### L [id number] #### [facility] ([facility]) [address] [place] [address] Lymphocytes/100 WBC (Bld) 11.9 % Low 20.0-45.0 [facility] Comment on above: Performed By: #### L [id number] #### [facility] ([facility]) [address] [place] [address] MCH (RBC) [Entitic mass] 29.4 pg Normal 27.0-33.0 [facility] Comment on above: Performed By: #### L [id number] #### [facility] ([facility]) [address] [place] [address] MCV (RBC) [Entitic vol] 89.2 fL Normal 82.0-98.0 [facility] Comment on above: Performed By: #### L [id number] #### [facility] ([facility]) [address] [place] [address] Monocytes (Bld) [#/Vol] 0.54 10*3/uL Normal 0.10-1.00 [facility] Comment on above: Performed By: #### L [id number] #### [facility] ([facility]) [address] [place] [address] Monocytes/100 WBC (Bld) 8.0 % Normal 5.0-12.0 [facility] Comment on above: Performed By: #### L [id number] #### [facility] ([facility]) [address] [place] [address] Neutrophils (Bld) [#/Vol] 5.14 10*3/uL Normal 1.60-7.60 [facility] Comment on above: Performed By: #### L [id number] #### [facility] ([facility]) [address] [place] [address] Neutrophils/100 WBC (Bld) 76.7 % High 40.0-72.0 [facility] Comment on above: Performed By: #### L [id number] #### [facility] ([facility]) [address] [place] [address] NRBC (PER 100 WBCS) BY AUTOMATED COUNT 0.0 % Normal 0 [facility] Comment on above: Performed By: #### L [id number] #### [facility] [address] [place] [address] PLATELETS (10*3/UL) IN BLOOD AUTOMATED COUNT 271 10*3/uL Normal 150-400 [facility] Comment on above: Performed By: #### L [id number] #### [facility] [address] [place] [address] RBC (Bld) [#/Vol] 3.81 10*6/uL Low 4.20-5.70 [facility] Comment on above: Performed By: #### L [id number] #### [facility] ([facility]) [address] [place] [address] WBC (Bld) [#/Vol] 6.71 10*3/uL Normal 4.00-10.60 [facility] Comment on above: Performed By: #### L [id number] #### [facility] ([facility]) [address] [place] [address] COMPREHENSIVE METABOLIC PANE [facility] 05-19-2023 Albumin [Mass/Vol] 4.5 g/dL Normal 3.5-5.7 [facility] Comment on above: Performed By: #### L [id number] #### [facility] ([facility]) [address] [place] [address] ALP [Catalytic activity/Vol] 85 U/L Normal 34-104 [facility] Comment on above: Performed By: #### L [id number] #### [facility] ([facility]) [address] [place] [address] ALT [Catalytic activity/Vol] 10 U/L Normal 7-52 [facility] Comment on above: Performed By: #### L [id number] #### [facility] ([facility]) [address] [place] [address] Anion gap [Moles/Vol] 15 mmol/L Normal 7-20 [facility] Comment on above: Performed By: #### L [id number] #### [facility] ([facility]) [address] [place] [address] AST [Catalytic activity/Vol] 13 U/L Normal 13-39 [facility] Comment on above: Performed By: #### L [id number] #### [facility] ([facility]) [address] [place] [address] Bilirubin [Mass/Vol] 0.5 mg/dL Normal 0.3-1.0 [facility] Comment on above: Performed By: #### L [id number] #### [facility] [address] [place] [address] Calcium [Mass/Vol] 9.1 mg/dL Normal 8.6-10.3 [facility] Comment on above: Performed By: #### L [id number] #### [facility] [address] [place] [address] Chloride [Moles/Vol] 99 mmol/L Normal 98-107 [facility] Comment on above: Performed By: #### L [id number] #### [facility] ([facility]) [address] [place] [address] CO2 [Moles/Vol] 22 mmol/L Normal 21-31 [facility] Comment on above: Performed By: #### L [id number] #### [facility] ([facility]) [address] [place] [address] Creatinine [Mass/Vol] 0.85 mg/dL Normal 0.70-1.30 [facility] Comment on above: Performed By: #### L [id number] #### [facility] ([facility]) [address] [place] [address] GLOMERULAR FILTRATION RATE ML/MIN/1.73 SQ M.PREDICTED 92.9 mL/min/1.73m*2 Normal >60.0 [facility] Comment on above: Result Comment: [facility]???s estimated glomerular filtration rate (eGFR) will [...] individuals. Performed By: #### L [id number] #### [facility] ([facility]) [address] [place] [address] Glucose [Mass/Vol] 107 mg/dL High 70-100 [facility] Comment on above: Performed By: #### L [id number] #### [facility] ([facility]) [address] [place] [address] Potassium [Moles/Vol] 4.9 mmol/L Normal 3.5-5.1 [facility] Center Comment on above: Performed By: #### L [id number] #### [facility] ([facility]) [address] [place] [address] Protein [Mass/Vol] 6.7 g/dL Normal 6.0-8.3 [facility] Comment on above: Performed By: #### L [id number] #### [facility] ([facility]) [address] [place] [address] Sodium [Moles/Vol] 131 mmol/L Low 136-145 [facility] Comment on above: Performed By: #### L [id number] #### [facility] ([facility]) [address] [place] [address] Urea nitrogen [Mass/Vol] 15 mg/dL Normal 7-25 [facility] Comment on above: Performed By: #### L [id number] #### [facility] ([facility]) [address] [place] [address] UREA NITROGEN/CREATININE (MASS RATIO) IN SER/PLAS 17.6 Normal [facility] Comment on above: Performed By: #### L [id number] #### [facility] ([facility]) [address] [place] [address] Follow-Upon 05-19-2023 Follow-Up [id number] Wm Suarez 1950 M Date Provider Department [...] at Mother Father Sister Brother Level of Service:29490 UT OFFICE/OUTPATIENT ESTABLISHED MOD MDM 30 MIN Reason for Visit and Comments: Kidney Follow-up [] - No concerns Normal [facility] LIPID PANELon 05-19-2023 CHOL/HDL 1.9 mg/dL Normal [facility] Comment on above: Performed By: #### L [id number] ####[facility] ([facility])[address] [place] [address] Cholesterol [Mass/Vol] 88 mg/dL Low 120-200 [facility] Comment on above: Performed By: #### L [id number] ####[facility] ([facility])[address] [place] [address] Magnesium [Mass/Vol] 53 mg/dL Normal 40-149 [facility] Comment on above: Result Comment: TRIG LYCERIDE REFERENCE RANGE: 20 YEARS AND OLDER CARDIOVASCULAR RISK LESS THAN 150 mg/dL LOW RISK 150 TO 199 mg/dL BORDERLINE RISK 200 mg/dL AND GREATER HIGH RISK Performed By: #### L [id number] ####[facility] ([facility])[address] [place] [address] Magnesium [Mass/Vol] 30 mg/dL Normal 0-160 [facility] Comment on above: Performed By: #### L [id number] ####[facility] ([facility])[address] [place] [address] Magnesium [Mass/Vol] 47 mg/dL Normal 23-92 [facility] Comment on above: Performed By: #### L [id number] ####[facility] ([facility])[address] [place] [address] NON HDL CHOL. (LDL+VLDL) 41 Normal [facility] Comment on above: Performed By: #### L [id number] ####[facility] ([facility])[address] [place] [address] TOTAL VLDL-C 11 mg/dL Normal 0-40 [facility] Comment on above: Performed By: #### L [id number] ####[facility] ([facility])[address] [place] [address] Labon 05-19-2023 Lab [id number] Wm Suarez 1950 M Date Provider Department Center 05/19/202312865-LGR DRAW STATION KXT Draw [facility] Family History Problem Relation Age of Onset Diabetes Mother Hypertension Mother Coronary artery disease Mother Other Mother Cystic kidney disease Mother Hypertension Father Skin cancer Father Cystic kidney disease Father Cystic kidney disease Sister Heart disease Brother ALS Brother Cystic kidney disease Brother Family Status - Relation Status Age at Mother Father Sister Brother Normal [facility] MAGNESIUMon 05-19-2023 Magnesium [Mass/Vol] 1.3 mg/dL Low 1.9-2.7 [facility] Comment on above: Performed By: #### L [id number] #### [facility] ([facility]) [address] [place] [address] Orders Onlyon 05-19-2023 Orders Only [id number] Wm Suarez 1950 M Date Provider Department [...] Age at Mother Father Sister Brother Normal [facility] PHOSPHORUSon 05-19-2023 Magnesium [Mass/Vol] 4.5 mg/dL Normal 2.5-5.0 [facility] Comment on above: Performed By: #### L [id number] #### [facility] ([facility]) [address] [place] [address] TACROLIMUS LEVELon Tacrolimus (Bld) [Mass/Vol] 6.0 ng/mL Normal 5.0-20.0 [facility] Comment on above: Result Comment: The [employer] Tacrolimus assay is a delayed one-step immunoassay for the quantitative determination of tacrolimus in human whole blood using the chemiluminescent microparticle immunoassay (CMIA) technology with flexible assay protocols, referred to as Chemiflex. Performed By: #### L [id number] #### [facility] ([facility]) [address] [place] [address] TESTOSTERONE, FREE AND TOTAL , AND SHBGon 05-19-2023 SEX HORMONE BINDING GLOBULIN (NMOL/L) IN SER/PLAS 61 nmol/L Normal 11-80 [facility] Comment on above: Performed By: #### L [id number] #### [facility] [address] [place] [address] TESTOSTERONE (NG/DL) IN SER/PLAS 440 ng/dL Normal 220-1000 [facility] Comment on above: Performed By: #### L [id number] #### [facility] [address] [place] [address] TESTOSTERONE FREE (NG/ML) IN SER/PLAS 59.5 pg/mL Normal 47-244 [facility] Comment on above: Result Comment: The concentration of free testosterone is derived from a mathematical expression based on the constant for the binding of testosterone to albumin and/or sex hormone binding globulin. Test Performed by [employer] [address] [place] [id number] - Released 05/19/2023 15:01 Performed By: #### L [id number] #### [facility] [address] [place] [address] URIC ACIDon 05-19-2023 Magnesium [Mass/Vol] 6.2 mg/dL Normal 4.4-7.6 [facility] Comment on above: Performed By: #### L [id number] #### [facility] ([facility]) [address] [place] [address] Documentationon 05-14-2023 Documentation [id number] Wm Suarez 1950 M Date Provider Department [...] Age at Mother Father Sister Brother Normal [facility] 30on 04-30-2023 30 Daily Case Managemen t Update Multidisciplinary rounds have been completed. 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 New Diabetic Supply Scripts have been faxed to his pharmacy in [place], [place]. Diet: Dietary Orders (From admission, onward) [...] Answer: New diagnosis DM2 04/30/23 1109 Normal [facility] 30 Problem: Pain - Adul t [...] and maintained or improved Outcome: Progressing Normal [facility] BASIC METABOLIC PANELon 12-2 Anion gap [Moles/Vol] 12 mmol/L Normal 7-20 [facility] Comment on above: Performed By: #### L [id number] #### [facility] ([facility]) [address] [place] [address] Calcium [Mass/Vol] 8.7 mg/dL Normal 8.6-10.3 [facility] Comment on above: Performed By: #### L [id number] #### [facility] ([facility]) [address] [place] [address] Chloride [Moles/Vol] 102 mmol/L Normal 98-107 [facility] Comment on above: Performed By: #### L [id number] #### [facility] ([facility]) [address] [place] [address] CO2 [Moles/Vol] 24 mmol/L Normal 21-31 [facility] Comment on above: Performed By: #### L [id number] #### [facility] ([facility]) [address] [place] [address] Creatinine [Mass/Vol] 0.80 mg/dL Normal 0.70-1.30 [facility] Comment on above: Performed By: #### L [id number] #### [facility] ([facility]) [address] [place] [address] GLOMERULAR FILTRATION RATE ML/MIN/1.73 SQ M.PREDICTED 94.6 mL/min/1.73m*2 Normal >60.0 [facility] Comment on above: Result Comment: [facility]???s estimated glomerular filtration rate (eGFR) will [...] individuals. Performed By: #### L [id number] #### [facility] ([facility]) [address] [place] [address] Glucose [Mass/Vol] 160 mg/dL High 70-100 [facility] Comment on above: Performed By: #### L [id number] #### [facility] [address] [place] [address] Potassium [Moles/Vol] 4.2 mmol/L Normal 3.5-5.1 [facility] Comment on above: Performed By: #### L [id number] #### [facility] [address] [place] [address] Sodium [Moles/Vol] 134 mmol/L Low 136-145 [facility] Comment on above: Performed By: #### L [id number] #### [facility] ([facility]) [address] [place] [address] Urea nitrogen [Mass/Vol] 14 mg/dL Normal 7-25 [facility] Comment on above: Performed By: #### L [id number] #### [facility] ([facility]) [address] [place] [address] UREA NITROGEN/CREATININE (MASS RATIO) IN SER/PLAS 17.5 Normal [facility] Comment on above: Performed By: #### L [id number] #### [facility] ([facility]) [address] [place] [address] CBCon 04-30-2023 Erythrocyte distribution width (RBC) [Ratio] 13.0 % Normal 11.5-15.0 [facility] Comment on above: Performed By: #### L [id number] ####[facility] [place] [address] ERYTHROCYTE MEAN CORPUSCULAR HEMOGLOBIN CONCENTRATION (G/DL) BY AUTOMATED 33.9 g/dL Normal 32.0-35.0 [facility] Comment on above: Performed By: #### L [id number] ####[facility] [place] [address] Hematocrit (Bld) [Volume fraction] 28.0 % Low 39.0-55.0 [facility] Comment on above: Performed By: #### L [id number] ####[facility] ([facility])[address] [place] [address] Hemoglobin (Bld) [Mass/Vol] 9.5 g/dL Low 13.0-17.0 [facility] Comment on above: Performed By: #### L [id number] ####[facility] ([facility])[address] [place] [address] MCH (RBC) [Entitic mass] 29.3 pg Normal 27.0-33.0 [facility] Comment on above: Performed By: #### L [id number] ####[facility] ([facility])[address] [place] [address] MCV (RBC) [Entitic vol] 86.4 fL Normal 82.0-98.0 [facility] Comment on above: Performed By: #### L [id number] ####[facility] ([facility])[address] [place] [address] PLATELETS (10*3/UL) IN BLOOD AUTOMATED COUNT 232 10*3/uL Normal 150-400 [facility] Comment on above: Performed By: #### L [id number] ####[facility] ([facility])[address] [place] [address] RBC (Bld) [#/Vol] 3.24 10*6/uL Low 4.20-5.70 [facility] Comment on above: Performed By: #### L [id number] ####[facility] ([facility])[address] [place] [address] WBC (Bld) [#/Vol] 5.11 10*3/uL Normal 4.00-10.60 [facility] Comment on above: Performed By: #### L [id number] ####[facility] [place] [address] MAGNESIUMon 04-30-2023 Magnesium [Mass/Vol] 1.2 mg/dL Low 1.9-2.7 [facility] Comment on above: Performed By: #### L [id number] #### [facility] ([facility]) [address] [place] [address] PHOSPHORUSon 04-30-2023 Magnesium [Mass/Vol] 3.3 mg/dL Normal 2.5-5.0 [facility] Comment on above: Performed By: #### L [id number] #### [facility] ([facility]) [address] [place] [address] POCT GLUCOSE METER UNSOLICIT ED RESULTSon 04-30-2023 Glucose [Mass/Vol] 251 mg/dL High 70-105 [facility] Comment on above: Order Comment: Waive d Testing in the ED is performed under the ED CLIA certificate #[id number]. Result Comment: [email or web address] [email or web address] Performed By: #### L [id number] #### [facility] ([facility]) [address] [place] [address] Glucose [Mass/Vol] 146 mg/dL High 70-105 [facility] Comment on above: Order Comment: DRAW Q 3 MONTHS MAY, August, November, FEBRUARY Result Comment: trob [email or web address] Performed By: #### L [id number] #### [facility] ([facility]) [address] [place] [address] TACROLIMUS LEVELon Tacrolimus (Bld) [Mass/Vol] 6.1 ng/mL Normal 5.0-20.0 [facility] Comment on above: Result Comment: The [employer] Tacrolimus assay is a delayed one-step immunoassay for the quantitative determination of tacrolimus in human whole blood using the chemiluminescent microparticle immunoassay (CMIA) technology with flexible assay protocols, referred to as Chemiflex. Performed By: #### L [id number] #### [facility] ([facility]) [address] [place] [address] 30on 04-29-2023 30 Daily Case Managemen t [...] Consultation Consultation and Management 04/27/23 231 Normal [facility] BASIC METABOLIC PANELon - Anion gap [Moles/Vol] 13 mmol/L Normal 7-20 [facility] Comment on above: Performed By: #### L [id number] #### [facility] ([facility]) [address] [place] [address] Calcium [Mass/Vol] 8.7 mg/dL Normal 8.6-10.3 [facility] Comment on above: Performed By: #### L [id number] #### [facility] ([facility]) [address] [place] [address] Chloride [Moles/Vol] 103 mmol/L Normal 98-107 [facility] Comment on above: Performed By: #### L [id number] #### [facility] ([facility]) [address] [place] [address] CO2 [Moles/Vol] 22 mmol/L Normal 21-31 [facility] Comment on above: Performed By: #### L [id number] #### [facility] ([facility]) [address] [place] [address] Creatinine [Mass/Vol] 0.96 mg/dL Normal 0.70-1.30 [facility] Comment on above: Performed By: #### L [id number] #### [facility] ([facility]) [address] [place] [address] GLOMERULAR FILTRATION RATE ML/MIN/1.73 SQ M.PREDICTED 84.5 mL/min/1.73m*2 Normal >60.0 [facility] Comment on above: Result Comment: [facility]???s estimated glomerular filtration rate (eGFR) will [...] group of individuals. Performed By: #### L [id number] #### [facility] ([facility]) [address] [place] [address] Glucose [Mass/Vol] 175 mg/dL High 70-100 [facility] Comment on above: Performed By: #### L [id number] #### [facility] ([facility]) [address] [place] [address] Potassium [Moles/Vol] 4.5 mmol/L Normal 3.5-5.1 [facility] Comment on above: Performed By: #### L [id number] #### [facility] ([facility]) [address] [place] [address] Sodium [Moles/Vol] 133 mmol/L Low 136-145 [facility] Comment on above: Performed By: #### L [id number] #### [facility] ([facility]) [address] [place] [address] Urea nitrogen [Mass/Vol] 29 mg/dL High 7-25 [facility] Comment on above: Performed By: #### L [id number] #### [facility] ([facility]) [address] [place] [address] UREA NITROGEN/CREATININE (MASS RATIO) IN SER/PLAS 30.2 Normal [facility] Comment on above: Performed By: #### L [id number] #### [facility] ([facility]) [address] [place] [address] Anion gap [Moles/Vol] 16 mmol/L Normal 7-20 [facility] Comment on above: Performed By: #### L [id number] #### [facility] ([facility]) [address] [place] [address] Calcium [Mass/Vol] 8.7 mg/dL Normal 8.6-10.3 [facility] Comment on above: Performed By: #### L [id number] #### [facility] ([facility]) [address] [place] [address] Chloride [Moles/Vol] 102 mmol/L Normal 98-107 [facility] Comment on above: Performed By: #### L [id number] #### [facility] ([facility]) [address] [place] [address] CO2 [Moles/Vol] 19 mmol/L Low 21-31 [facility] Comment on above: Performed By: #### L [id number] #### [facility] ([facility]) [address] [place] [address] Creatinine [Mass/Vol] 1.02 mg/dL Normal 0.70-1.30 [facility] Comment on above: Performed By: #### L [id number] #### [facility] ([facility]) [address] [place] [address] GLOMERULAR FILTRATION RATE ML/MIN/1.73 SQ M.PREDICTED 78.6 mL/min/1.73m*2 Normal >60.0 [facility] Comment on above: Result Comment: [facility]???s estimated glomerular filtration rate (eGFR) will [...] group of individuals. Performed By: #### L [id number] #### [facility] ([facility]) [address] [place] [address] Glucose [Mass/Vol] 206 mg/dL High 70-100 [facility] Comment on above: Performed By: #### L [id number] #### [facility] ([facility]) [address] [place] [address] Potassium [Moles/Vol] 4.8 mmol/L Normal 3.5-5.1 [facility] Comment on above: Performed By: #### L [id number] #### [facility] ([facility]) [address] [place] [address] Sodium [Moles/Vol] 132 mmol/L Low 136-145 [facility] Comment on above: Performed By: #### L [id number] #### [facility] ([facility]) [address] [place] [address] Urea nitrogen [Mass/Vol] 31 mg/dL High 7-25 [facility] Comment on above: Performed By: #### L [id number] #### [facility] ([facility]) [address] [place] [address] UREA NITROGEN/CREATININE (MASS RATIO) IN SER/PLAS 30.4 Normal [facility] Comment on above: Performed By: #### L [id number] #### [facility] ([facility]) [address] [place] [address] POCT GLUCOSE METER UNSOLICIT ED RESULTSon 04-29-2023 Glucose [Mass/Vol] 151 mg/dL High 70-105 [facility] Comment on above: Order Comment: DRAW Q 3 MONTHS MAY, August, November, FEBRUARY Result Comment: dcun dic Performed By: #### L [id number] #### [facility] ([facility]) [address] [place] [address] Glucose [Mass/Vol] 166 mg/dL High 70-105 [facility] Comment on above: Order Comment: DRAW Q 3 MONTHS MAY, August, November, FEBRUARY Result Comment: lzar ate Performed By: #### L [id number] #### [facility] ([facility]) [address] [place] [address] Glucose [Mass/Vol] 147 mg/dL High 70-105 [facility] Comment on above: Order Comment: Waive d Testing in the ED is performed under the ED CLIA certificate #[id number]. Result Comment: [email or web address] Performed By: #### L [id number] #### [facility] ([facility]) [address] [place] [address] Glucose [Mass/Vol] 145 mg/dL High 70-105 [facility] Comment on above: Order Comment: DRAW Q 3 MONTHS MAY, August, November, FEBRUARY Result Comment: [email or web address] Performed By: #### L [id number] #### [facility] ([facility]) [address] [place] [address] TACROLIMUS LEVELon Tacrolimus (Bld) [Mass/Vol] 8.6 ng/mL Normal 5.0-20.0 [facility] Comment on above: Result Comment: The [employer] Tacrolimus assay is a delayed one-step immunoassay for the quantitative determination of tacrolimus in human whole blood using the chemiluminescent microparticle immunoassay (CMIA) technology with flexible assay protocols, referred to as Chemiflex. Performed By: #### L [id number] #### [facility] [address] [place] [address] BASIC METABOLIC PANELon 12- Anion gap [Moles/Vol] 17 mmol/L Normal 7-20 [facility] Comment on above: Performed By: #### L [id number] #### [facility] ([facility]) [address] [place] [address] Calcium [Mass/Vol] 8.6 mg/dL Normal 8.6-10.3 [facility] Comment on above: Performed By: #### L [id number] #### [facility] ([facility]) [address] [place] [address] Chloride [Moles/Vol] 102 mmol/L Normal 98-107 [facility] Comment on above: Performed By: #### L [id number] #### [facility] ([facility]) [address] [place] [address] CO2 [Moles/Vol] 20 mmol/L Low 21-31 [facility] Comment on above: Performed By: #### L [id number] #### [facility] ([facility]) [address] [place] [address] Creatinine [Mass/Vol] 1.07 mg/dL Normal 0.70-1.30 [facility] Comment on above: Performed By: #### L [id number] #### [facility] ([facility]) [address] [place] [address] GLOMERULAR FILTRATION RATE ML/MIN/1.73 SQ M.PREDICTED 74.2 mL/min/1.73m*2 Normal >60.0 [facility] Comment on above: Result Comment: [facility]???s estimated glomerular filtration rate (eGFR) will [...] group of individuals. Performed By: #### L [id number] #### [facility] ([facility]) [address] [place] [address] Glucose [Mass/Vol] 144 mg/dL High 70-100 [facility] Comment on above: Performed By: #### L [id number] #### [facility] ([facility]) [address] [place] [address] Potassium [Moles/Vol] 4.7 mmol/L Normal 3.5-5.1 [facility] Comment on above: Performed By: #### L [id number] #### [facility] ([facility]) [address] [place] [address] Sodium [Moles/Vol] 134 mmol/L Low 136-145 [facility] Comment on above: Performed By: #### L [id number] #### [facility] ([facility]) [address] [place] [address] Urea nitrogen [Mass/Vol] 34 mg/dL High 7-25 [facility] Comment on above: Performed By: #### L [id number] #### [facility] ([facility]) [address] [place] [address] UREA NITROGEN/CREATININE (MASS RATIO) IN SER/PLAS 31.8 Normal [facility] Comment on above: Performed By: #### L [id number] #### [facility] ([facility]) [address] [place] [address] Anion gap [Moles/Vol] 17 mmol/L Normal 7-20 [facility] Comment on above: Performed By: #### L [id number] ####[facility] ([facility])[address] [place] [address] Calcium [Mass/Vol] 8.7 mg/dL Normal 8.6-10.3 [facility] Comment on above: Performed By: #### L [id number] ####[facility] ([facility] [place] [address] Chloride [Moles/Vol] 100 mmol/L Normal 98-107 [facility] Comment on above: Performed By: #### L [id number] ####[facility] ([facility])[address] [place] [address] CO2 [Moles/Vol] 19 mmol/L Low 21-31 [facility] [facility] Comment on above: Performed By: #### L [id number] ####[facility] ([facility])[address] [place] [address] Creatinine [Mass/Vol] 1.20 mg/dL Normal 0.70-1.30 [facility] Comment on above: Performed By: #### L [id number] ####[facility] ([facility])[address] [place] [address] GLOMERULAR FILTRATION RATE ML/MIN/1.73 SQ M.PREDICTED 64.7 mL/min/1.73m*2 Normal >60.0 [facility] Comment on above: Result Comment: [facility]???s estimated glomerular filtration rate (eGFR) will [...] of individuals. Performed By: #### L [id number] ####[facility] ([facility])[address] [place] [address] Glucose [Mass/Vol] 237 mg/dL High 70-100 [facility] Comment on above: Performed By: #### L [id number] ####[facility] ([facility])[address] [place] [address] Potassium [Moles/Vol] 4.4 mmol/L Normal 3.5-5.1 [facility] Comment on above: Performed By: #### L [id number] ####[facility] ([facility])[address] [place] [address] Sodium [Moles/Vol] 132 mmol/L Low 136-145 [facility] Comment on above: Performed By: #### L [id number] ####[facility] ([facility])[address] [place] [address] Urea nitrogen [Mass/Vol] 40 mg/dL High 7-25 [facility] Comment on above: Performed By: #### L [id number] ####[facility] ([facility])[address] [place] [address] UREA NITROGEN/CREATININE (MASS RATIO) IN SER/PLAS 33.3 Normal [facility] Comment on above: Performed By: #### L [id number] ####[facility] ([facility])[address] [place] [address] Anion gap [Moles/Vol] 20 mmol/L Normal 7-20 [facility] Comment on above: Performed By: #### L [id number] ####[facility] ([facility])[address] [place] [address] Calcium [Mass/Vol] 8.6 mg/dL Normal 8.6-10.3 [facility] Comment on above: Performed By: #### L [id number] ####[facility] ([facility])[address] [place] [address] Chloride [Moles/Vol] 101 mmol/L Normal 98-107 [facility] Comment on above: Performed By: #### L [id number] ####[facility] ([facility])[address] [place] [address] CO2 [Moles/Vol] 14 mmol/L Invalid Interpretation Code 21-31 [facility] Comment on above: Performed By: #### L [id number] ####[facility] ([facility])[address] [place] [address] Creatinine [Mass/Vol] 1.32 mg/dL High 0.70-1.30 [facility] Comment on above: Performed By: #### L [id number] ####[facility] ([facility])[address] [place] [address] GLOMERULAR FILTRATION RATE ML/MIN/1.73 SQ M.PREDICTED 57.7 mL/min/1.73m*2 Low >60.0 [facility] Comment on above: Result Comment: [facility]???s estimated glomerular filtration rate (eGFR) will [...] of individuals. Performed By: #### L [id number] ####[facility] ([facility])[address] [place] [address] Glucose [Mass/Vol] 332 mg/dL High 70-100 [facility] Comment on above: Performed By: #### L [id number] ####[facility] ([facility])[address] [place] [address] Potassium [Moles/Vol] 4.6 mmol/L Normal 3.5-5.1 [facility] Comment on above: Performed By: #### L [id number] ####[facility] ([facility])[address] [place] [address] Sodium [Moles/Vol] 130 mmol/L Low 136-145 [facility] Comment on above: Performed By: #### L [id number] ####[facility] ([facility])[address] [place] [address] Urea nitrogen [Mass/Vol] 43 mg/dL High 7-25 [facility] Comment on above: Performed By: #### L [id number] ####[facility] ([facility])[address] [place] [address] UREA NITROGEN/CREATININE (MASS RATIO) IN SER/PLAS 32.6 Normal [facility] Comment on above: Performed By: #### L [id number] ####[facility] ([facility])[address] [place] [address] Anion gap [Moles/Vol] 22 mmol/L High 7-20 [facility] Comment on above: Performed By: #### L [id number] #### [facility] ([facility]) [address] [place] [address] Calcium [Mass/Vol] 8.9 mg/dL Normal 8.6-10.3 [facility] Comment on above: Performed By: #### L [id number] #### [facility] ([facility]) [address] [place] [address] Chloride [Moles/Vol] 99 mmol/L Normal 98-107 [facility] Comment on above: Performed By: #### L [id number] #### [facility] ([facility]) [address] [place] [address] CO2 [Moles/Vol] 13 mmol/L Invalid Interpretation Code [facility] Comment on above: Performed By: #### L [id number] #### [facility] ([facility]) [address] [place] [address] Creatinine [Mass/Vol] 1.33 mg/dL High 0.70-1.30 [facility] Comment on above: Performed By: #### L [id number] #### [facility] ([facility]) [address] [place] [address] GLOMERULAR FILTRATION RATE ML/MIN/1.73 SQ M.PREDICTED 57.1 mL/min/1.73m*2 Low >60.0 [facility] Comment on above: Result Comment: [facility]???s estimated glomerular filtration rate (eGFR) will [...] individuals. Performed By: #### L [id number] #### [facility] ([facility]) [address] [place] [address] Glucose [Mass/Vol] 324 mg/dL High 70-100 [facility] Comment on above: Performed By: #### L [id number] #### [facility] ([facility]) [address] [place] [address] Potassium [Moles/Vol] 5.7 mmol/L High 3.5-5.1 [facility] Comment on above: Performed By: #### L [id number] #### [facility] ([facility]) [address] [place] [address] Sodium [Moles/Vol] 128 mmol/L Low 136-145 [facility] Comment on above: Performed By: #### L [id number] #### [facility] ([facility]) [address] [place] [address] Urea nitrogen [Mass/Vol] 45 mg/dL High 7-25 [facility] Comment on above: Performed By: #### L [id number] #### [facility] ([facility]) [address] [place] [address] UREA NITROGEN/CREATININE (MASS RATIO) IN SER/PLAS 33.8 Normal [facility] Comment on above: Performed By: #### L [id number] #### [facility] ([facility]) [address] [place] [address] Anion gap [Moles/Vol] 23 mmol/L High 7-20 [facility] Comment on above: Performed By: #### L [id number] ####[facility] ([facility])[address] [place] [address] Calcium [Mass/Vol] 8.8 mg/dL Normal 8.6-10.3 [facility] Comment on above: Performed By: #### L [id number] ####[facility] ([facility])[address] [place] [address] Chloride [Moles/Vol] 99 mmol/L Normal 98-107 [facility] Comment on above: Performed By: #### L [id number] ####[facility] ([facility])[address] [place] [address] CO2 [Moles/Vol] 13 mmol/L Invalid Interpretation Code [facility] Comment on above: Performed By: #### L [id number] ####[facility] ([facility])[address] [place] [address] Creatinine [Mass/Vol] 1.31 mg/dL High 0.70-1.30 [facility] Comment on above: Performed By: #### L [id number] ####[facility] ([facility])[address] [place] [address] GLOMERULAR FILTRATION RATE ML/MIN/1.73 SQ M.PREDICTED 58.2 mL/min/1.73m*2 Low >60.0 [facility] Comment on above: Result Comment: [facility]???s estimated glomerular filtration rate (eGFR) will [...] of individuals. Performed By: #### L [id number] ####[facility] ([facility])[address] [place] [address] Glucose [Mass/Vol] 264 mg/dL High 70-100 [facility] Comment on above: Performed By: #### L [id number] ####[facility] ([facility])[address] [place] [address] Potassium [Moles/Vol] 5.7 mmol/L High 3.5-5.1 [facility] Comment on above: Performed By: #### L [id number] ####[facility] ([facility])[address] [place] [address] Sodium [Moles/Vol] 129 mmol/L Low 136-[address] [facility] Comment on above: Performed By: #### L [id number] ####[facility] ([facility])[address] [place] [address] Urea nitrogen [Mass/Vol] 44 mg/dL High 7-25 [facility] Comment on above: Performed By: #### L [id number] ####[facility] ([facility])[address] [place] [address] UREA NITROGEN/CREATININE (MASS RATIO) IN SER/PLAS 33.6 Normal [facility] Comment on above: Performed By: #### L [id number] ####[facility] ([facility])[address] [place] [address] BETA HYDROXYBUTYRATEon 04-28 BETA HYDROXYBUTYRATE (MMOL/L) IN SER/PLAS 6.22 mmol/L High 0.02-0.27 [facility] Comment on above: Performed By: #### L [id number] #### [facility] ([facility]) [address] [place] [address] BLOOD CULTUREon 04-28-2023 Bacteria identified Cx Nom (Bld) No growth at 5 days [facility] Comment on above: Performed By: #### L [id number] ####[facility] ([facility])[address] [place] [address] Bacteria identified Cx Nom (Bld) No growth at 5 days [facility] Comment on above: Order Comment: From a different site than #1. Performed By: #### L [id number] #### [facility] ([facility]) [address] [place] [address] CMV DNA, QUALITATIVE, PCRon 04-28-2023 CYTOMEGALOVIRUS QUAL. PCR Not detected [facility] Comment on above: Result Comment: NOT DETECTED - A negative result does not rule out the presence of PCR inhibitors in the patient specimen or assay specific nucleic acid in concentrations below the level of detection by the assay. INTERPRETIVE INFORMATION: Cytomegalovirus Detection by PCR This test was developed and its performance characteristics determined by [facility]. It has not been cleared or approved by the [place] Food and Drug Administration. This test was performed in a CLIA certified laboratory and is intended for clinical purposes. Performed By: [facility] [address] [place] [id number] [address] Maintenance Worker: René Wick MD, PhD CLIA Number: [id number] Performed By: #### L [id number] #### [facility] ([facility]) [address] [place] [address] CYTOMEGALOVIRUS SOURCE Blood Normal [facility] Comment on above: Performed By: #### L [id number] #### [facility] ([facility]) [address] [place] [address] CONSULTon 04-28-2023 CONSULT - Attestation signed by [...] as a transfer from outside hospital in [place] for concerns of possible DKA, hyponatremia, [...] nursing note reviewed. Exam conducted with a pulp machine operator present (Dr. Pan). Constitutional: General: He is [...] No ed (more content not included)... Normal [facility] HEMOGLOBIN A1Con 04-28-2023 Glucose [Mass/Vol] 372 mg/dL Normal [facility] Comment on above: Order Comment: NO VA RIANT Performed By: #### L [id number] ####[facility] ([facility])[address] [place] [address] HbA1c (Bld) [Mass fraction] 14.6 % High 4.0-6.0 [facility] Comment on above: Order Comment: NO VA RIANT Performed By: #### L [id number] ####[facility] ([facility])[address] [place] [address] NURSNOTEon 04-28-[address] Nguyen ( nephrology) regarding placing powerglide if pt a candidate, ok with placement on right arm. Normal [facility] OSMOLALITYon 04-28-2023 OSMOLALITY MEASURED 310 mOsm/kg High 275-295 [facility] Comment on above: Result Comment: Test Performed by [facility] [address] [place] [address] - Released 04/28/2023 22:42 Performed By: #### L [id number] #### [facility] ([facility]) [address] [place] [address] OSMOLALITY, URINEon 04-28-20 23 OSMOLALITY, URINE 446 mOsm/kg Normal 80-1300 [facility] Comment on above: Result Comment: Test Performed by [facility] [address] [place] [address] - Released 04/29/2023 03:35 Performed By: #### L [id number] #### [facility] [address] [place] [address] POCT GLUCOSE METER UNSOLICIT ED RESULTSon 04-28-2023 Glucose [Mass/Vol] 141 mg/dL High 70-105 [facility] Comment on above: Order Comment: DRAW Q 3 MONTHS MAY, August, November, FEBRUARY Result Comment: ladarius benoit Performed By: #### L [id number] #### [facility] ([facility]) [address] [place] [address] Glucose [Mass/Vol] 99 mg/dL Normal 70-105 [facility] Comment on above: Order Comment: Waive d Testing in the ED is performed under the ED CLIA certificate #[id number]. Result Comment: besc obe Performed By: #### L [id number] #### [facility] [address] [place] [address] Glucose [Mass/Vol] 115 mg/dL High 70-105 [facility] Comment on above: Order Comment: Waive d Testing in the ED is performed under the ED CLIA certificate #[id number]. Result Comment: besc obe Performed By: #### L [id number] #### [facility] ([facility]) [address] [place] [address] Glucose [Mass/Vol] 145 mg/dL High 70-105 [facility] Comment on above: Order Comment: Waive d Testing in the ED is performed under the ED CLIA certificate #[id number]. Result Comment: wwar rad Performed By: #### L [id number] #### [facility] [address] [place] [address] Glucose [Mass/Vol] 165 mg/dL High 70-105 [facility] Comment on above: Order Comment: Waive d Testing in the ED is performed under the ED CLIA certificate #[id number]. Result Comment: besc obe Performed By: #### L [id number] #### [facility] ([facility]) [address] [place] [address] Glucose [Mass/Vol] 203 mg/dL High 70-105 [facility] Comment on above: Order Comment: Waive d Testing in the ED is performed under the ED CLIA certificate #[id number]. Result Comment: [email or web address] Performed By: #### L [id number] #### [facility] ([facility]) [address] [place] [address] Glucose [Mass/Vol] 247 mg/dL High 70-105 [facility] Comment on above: Order Comment: Waive d Testing in the ED is performed under the ED CLIA certificate #[id number]. Result Comment: wwar rad Performed By: #### L [id number] #### [facility] ([facility]) [address] [place] [address] Glucose [Mass/Vol] 315 mg/dL High 70-105 [facility] Comment on above: Order Comment: Waive d Testing in the ED is performed under the ED CLIA certificate #[id number]. Result Comment: wwar rad Performed By: #### L [id number] #### [facility] ([facility]) [address] [place] [address] Glucose [Mass/Vol] 356 mg/dL High 70-105 [facility] Comment on above: Order Comment: Waive d Testing in the ED is performed under the ED CLIA certificate #[id number]. Result Comment: abee rbo Performed By: #### L [id number] #### [facility] ([facility]) [address] [place] [address] Glucose [Mass/Vol] 312 mg/dL High 70-105 [facility] Comment on above: Order Comment: Waive d Testing in the ED is performed under the ED CLIA certificate #[id number]. Result Comment: wwar rad Performed By: #### L [id number] #### [facility] ([facility]) [address] [place] [address] PTH, INTACTon 04-28-2023 PARATHYRIN INTACT (PG/ML) IN SER/PLAS 48 pg/mL Normal 12-88 [facility] Comment on above: Performed By: #### L [id number] #### [facility] [address] [place] [address] TACROLIMUS LEVELon Tacrolimus (Bld) [Mass/Vol] 11.6 ng/mL Normal 5.0-20.0 [facility] Comment on above: Result Comment: The [employer] Tacrolimus assay is a delayed one-step immunoassay for the quantitative determination of tacrolimus in human whole blood using the chemiluminescent microparticle immunoassay (CMIA) technology with flexible assay protocols, referred to as Chemiflex. Performed By: #### L [id number] #### [facility] [address] [place] [address] TROPONIN Ion 04-28-2023 Troponin I.cardiac [Mass/Vol] 0.02 ng/mL Normal 0.00-0.04 [facility] Comment on above: Performed By: #### L [id number] ####[facility] ([facility])[address] [place] [address] Troponin I.cardiac [Mass/Vol] 0.02 ng/mL Normal 0.00-0.04 [facility] Comment on above: Performed By: #### L [id number] ####[facility] ([facility])[address] [place] [address] APTTon 04-27-2023 ACTIVATED PARTIAL THROMBOPLASTIN TIME IN PPP BY COAGULATION ASSAY 26.1 Seconds Normal 25.0-35.0 [facility] Comment on above: Result Comment: Clin ical significance of the APTT is questionable in the presence of heparin. Performed By: #### L [id number] #### [facility] [address] [place] [address] B-TYPE NATRIURETIC PEPTIDEon 04-27-2023 Natriuretic peptide B (Bld) [Mass/Vol] 98 pg/mL Normal 0-100 [facility] Comment on above: Performed By: #### L [id number] ####[facility] ([facility])[address] [place] [address] BASIC METABOLIC PANELon 04-11 Anion gap [Moles/Vol] 15 mmol/L Normal 7-20 [facility] Comment on above: Performed By: #### L [id number] ####[facility] [place] [address] Performed By: #### L [id number] #### [facility] [address] [place] [address] Calcium [Mass/Vol] 8.6 mg/dL Normal 8.6-10.3 [facility] Comment on above: Performed By: #### L [id number] ####[facility] ([facility])[address] [place] [address] Performed By: #### L [id number] #### [facility] [address] [address] Chloride [Moles/Vol] 101 mmol/L Normal 98-107 [facility] Comment on above: Performed By: #### L [id number] ####[facility] ([facility])[address] [place] [address] Performed By: #### L [id number] #### [facility] [address] [place] [address] CO2 [Moles/Vol] 18 mmol/L Low 21-31 [facility] Comment on above: Performed By: #### L [id number] ####[facility] ([facility])[address] [place] [address] Performed By: #### L [id number] #### [facility] [address] [place] [address] Creatinine [Mass/Vol] 1.36 mg/dL High 0.70-1.30 [facility] Comment on above: Performed By: #### L [id number] ####[facility] ([facility])[address] [place] [address] Performed By: #### L [id number] #### [facility] [address] [place] [address] GLOMERULAR FILTRATION RATE ML/MIN/1.73 SQ M.PREDICTED 55.6 mL/min/1.73m*2 Low >60.0 [facility] Comment on above: Result Comment: [facility]???s estimated glomerular filtration rate (eGFR) will [...] of individuals. Performed By: #### L [id number] ####[facility] ([facility])[address] [place] [address] Performed By: #### L [id number] #### [facility] [address] [place] [address] Glucose [Mass/Vol] 149 mg/dL High 70-100 [facility] Comment on above: Performed By: #### L [id number] ####[facility] ([facility])[address] [place] [address] Performed By: #### L [id number] #### [facility] [address] [place] [address] Potassium [Moles/Vol] 4.8 mmol/L Normal 3.5-5.1 [facility] Comment on above: Performed By: #### L [id number] ####[facility] ([facility])[address] [place] [address] Performed By: #### L [id number] #### [facility] [address] [place] [address] Sodium [Moles/Vol] 129 mmol/L Low 136-145 [facility] Comment on above: Performed By: #### L [id number] ####[facility] ([facility])[address] [place] [address] Performed By: #### L [id number] #### [facility] [address] [place] [address] Urea nitrogen [Mass/Vol] 45 mg/dL High 7-25 [facility] Comment on above: Performed By: #### L [id number] ####[facility] ([facility])[address] [place] [address] Performed By: #### L [id number] #### [facility] [address] [place] [address] UREA NITROGEN/CREATININE (MASS RATIO) IN SER/PLAS 33.1 Normal [facility] Comment on above: Performed By: #### L [id number] ####[facility] ([facility])[address] [place] [address] Performed By: #### L [id number] #### [facility] [address] [place] [address] BLOOD CULTUREon 04-27-2023 Bacteria identified Cx Nom (Bld) No growth at 5 days Normal [facility] Comment on above: Order Comment: From a different site than #1. Performed By: #### L [id number] #### [facility] ([facility]) [address] [place] [address] CBC WITH AUTO DIFFERENTIALon 04-27-2023 Basophils (Bld) [#/Vol] 0.04 10*3/uL Normal 0.00-0.20 [facility] Comment on above: Performed By: #### L [id number] #### [facility] ([facility]) [address] [place] [address] Basophils/100 WBC (Bld) 0.4 % Normal 0.0-1.0 [facility] Comment on above: Performed By: #### L [id number] #### [facility] ([facility]) [address] [place] [address] Eosinophils (Bld) [#/Vol] 0.09 10*3/uL Normal 0.00-0.50 [facility] Comment on above: Performed By: #### L [id number] #### [facility] ([facility]) [address] [place] [address] Eosinophils/100 WBC (Bld) 1.0 % Normal 0.0-6.0 [facility] Comment on above: Performed By: #### L [id number] #### [facility] ([facility]) [address] [place] [address] Erythrocyte distribution width (RBC) [Ratio] 13.1 % Normal 11.5-15.0 [facility] Comment on above: Performed By: #### L [id number] #### [facility] [address] [place] [address] ERYTHROCYTE MEAN CORPUSCULAR HEMOGLOBIN CONCENTRATION (G/DL) BY AUTOMATED 33.9 g/dL Normal 32.0-35.0 [facility] Comment on above: Performed By: #### L [id number] #### [facility] CENTER) [address] [place] [address] Hematocrit (Bld) [Volume fraction] 32.7 % Low 39.0-55.0 [facility] Comment on above: Performed By: #### L [id number] #### [facility] ([facility]) [address] [place] [address] Hemoglobin (Bld) [Mass/Vol] 11.1 g/dL Low 13.0-17.0 [facility] Comment on above: Performed By: #### L [id number] #### [facility] ([facility]) [address] [place] [address] Immature granulocytes (Bld) [#/Vol] 0.15 10*3/uL Normal 0.00-0.20 [facility] Comment on above: Performed By: #### L [id number] #### [facility] ([facility]) [address] [place] [address] Immature granulocytes/100 WBC (Bld) 1.6 % High 0.0-1.0 [facility] Comment on above: Performed By: #### L [id number] #### [facility] [address] [place] [address] Lymphocytes (Bld) [#/Vol] 1.04 10*3/uL Low 1.20-4.00 [facility] Comment on above: Performed By: #### L [id number] #### [facility] [address] [place] [address] Lymphocytes/100 WBC (Bld) 11.3 % Low 20.0-45.0 [facility] Comment on above: Performed By: #### L [id number] #### [facility] ([facility]) [address] [place] [address] MCH (RBC) [Entitic mass] 29.3 pg Normal 27.0-33.0 [facility] Comment on above: Performed By: #### L [id number] #### [facility] ([facility]) [address] [place] [address] MCV (RBC) [Entitic vol] 86.3 fL Normal 82.0-98.0 [facility] Comment on above: Performed By: #### L [id number] #### [facility] ([facility]) [address] [place] [address] Monocytes (Bld) [#/Vol] 0.96 10*3/uL Normal 0.10-1.00 [facility] Comment on above: Performed By: #### L [id number] #### [facility] ([facility]) [address] [place] [address] Monocytes/100 WBC (Bld) 10.5 % Normal 5.0-12.0 [facility] Comment on above: Performed By: #### L [id number] #### [facility] ([facility]) [address] [place] [address] Neutrophils (Bld) [#/Vol] 6.90 10*3/uL Normal 1.60-7.60 [facility] Comment on above: Performed By: #### L [id number] #### [facility] ([facility]) [address] [place] [address] Neutrophils/100 WBC (Bld) 75.2 % High 40.0-72.0 [facility] Comment on above: Performed By: #### L [id number] #### [facility] [address] [place] [address] NRBC (PER 100 WBCS) BY AUTOMATED COUNT 0.0 % Normal 0 [facility] Comment on above: Performed By: #### L [id number] #### [facility] ([facility]) [address] [place] [address] PLATELETS (10*3/UL) IN BLOOD AUTOMATED COUNT 301 10*3/uL Normal 150-400 [facility] Comment on above: Performed By: #### L [id number] #### [facility] ([facility]) [address] [place] [address] RBC (Bld) [#/Vol] 3.79 10*6/uL Low 4.20-5.70 [facility] Comment on above: Performed By: #### L [id number] #### [facility] ([facility]) [address] [place] [address] WBC (Bld) [#/Vol] 9.18 10*3/uL Normal 4.00-10.60 [facility] Comment on above: Performed By: #### L [id number] #### [facility] ([facility]) [address] [place] [address] COMPREHENSIVE METABOLIC PANE Claudio 04-27-2023 Albumin [Mass/Vol] 3.8 g/dL Normal 3.5-5.7 [facility] Comment on above: Performed By: #### L [id number] #### [facility] [address] [place] [address] ALP [Catalytic activity/Vol] 100 U/L Normal 34-104 [facility] Comment on above: Performed By: #### L [id number] #### [facility] [address] [place] [address] ALT [Catalytic activity/Vol] 12 U/L Normal 7-52 [facility] Comment on above: Performed By: #### L [id number] #### [facility] [address] [address] AST [Catalytic activity/Vol] 12 U/L Low 13-39 [facility] Comment on above: Performed By: #### L [id number] #### [facility] [address] [place] [address] Bilirubin [Mass/Vol] 0.4 mg/dL Normal 0.3-1.0 [facility] Comment on above: Performed By: #### L [id number] #### [facility] [address] [place] [place] [address] Protein [Mass/Vol] 6.0 g/dL Normal 6.0-8.3 [facility] Comment on above: Performed By: #### L [id number] #### [facility] [address] [place] [address] CREATININE, URINE, RANDOMon 04-27-2023 Creatinine (U) [Mass/Vol] 100.0 mg/dL Normal 26-299 [facility] Comment on above: Performed By: #### L [id number] #### [facility] ([facility]) [address] [place] [address] LACTIC ACID WITH 4 HOUR REFL EXon 04-27-2023 LACTATE (MMOL/L) IN SER/PLAS 0.8 mmol/L Normal 0.5-2.2 [facility] Comment on above: Performed By: #### L [id number] #### [facility] ([facility]) [address] [place] [address] MAGNESIUMon 04-27-2023 Magnesium [Mass/Vol] 1.7 mg/dL Low 1.9-2.7 [facility] Comment on above: Performed By: #### L [id number] ####[facility] ([facility])[address] [place] [address] PHOSPHORUSon 04-27-2023 Magnesium [Mass/Vol] 3.7 mg/dL Normal 2.5-5.0 [facility] Comment on above: Performed By: #### L [id number] ####[facility] ([facility])[address] [place] [address] POCT GLUCOSE METER UNSOLICIT ED RESULTSon 04-27-2023 Glucose [Mass/Vol] 139 mg/dL High 70-105 [facility] Comment on above: Order Comment: Waive d Testing in the ED is performed under the ED CLIA certificate #[id number]. Result Comment: raza brenner Performed By: #### L [id number] #### [facility] [address] [place] [address] PROTEIN, URINE, RANDOMon Protein (U) [Mass/Vol] 47.2 mg/dL Normal [facility] Comment on above: Result Comment: Ther e are no established reference values for random urine specimens. Performed By: #### L [id number] ####[facility] ([facility])[address] [place] [address] PROTIME-INRon 04-27-2023 INR IN PPP BY COAGULATION ASSAY 1.13 High 0.90-1.10 [facility] Comment on above: Result Comment: ACCC [...] RANGE. CHEST 1995;108:231S-246S. Performed By: #### L [id number] #### [facility] [address] [place] [address] PROTHROMBIN TIME (PT) IN PPP BY COAGULATION ASSAY 14.5 Seconds Normal 12.3-14.8 [facility] Comment on above: Performed By: #### L [id number] #### [facility] [address] [place] [address] SODIUM, URINE, RANDOMon 04-11 Sodium (U) [Moles/Vol] 35 mmol/L Normal [facility] Comment on above: Performed By: #### L [id number] ####[facility] ([facility])[address] [place] [address] TROPONIN Ion 04-27-2023 Troponin I.cardiac [Mass/Vol] 0.04 ng/mL Normal 0.00-0.04 [facility] Comment on above: Performed By: #### L [id number] ####[facility] [place] [address] URINALYSIS MICROSCOPIC WITH REFLEX CULTUREon 04-27-2023 CASTS IN URINE Normal [facility] Comment on above: Performed By: #### L [id number] #### [facility] [address] [place] [address] CRYSTALS IN URINE Normal [facility] Comment on above: Performed By: #### L [id number] #### [facility] ([facility]) [address] [place] [address] OTHER MICROSCOPIC ELEMENTS Normal [facility] Comment on above: Performed By: #### L [id number] #### [facility] [address] [place] [address] RBC (#/HPF) IN URINE SEDIMENT 21-50 Abnormal None Seen [facility] Comment on above: Performed By: #### L [id number] #### [facility] ([facility]) [address] [place] [address] SQUAMOUS EPITHELIAL CELLS (#/HPF) IN URINE SEDIMENT Occasional Normal None Seen, Occasional [facility] Comment on above: Performed By: #### L [id number] #### [facility] ([facility]) [address] [place] [address] WBC (LEUKOCYTE) (#/HPF) IN URINE SEDIMENT 6-10 Abnormal None Seen [facility] Comment on above: Performed By: #### L [id number] #### [facility] ([facility]) [address] [place] [address] URINALYSIS WITH REFLEX CULTU REon 04-27-2023 BILIRUBIN, TOTAL PRESENCE IN URINE Negative Normal Negative [facility] Comment on above: Performed By: #### L [id number] ####[facility] ([facility])[address] [place] [address] Clarity (U) Clear Normal Clear [facility] Comment on above: Performed By: #### L [id number] ####[facility] ([facility])[address] [place] [address] Color (U) Yellow Normal Yellow [facility] Comment on above: Performed By: #### L [id number] ####[facility] ([facility])[address] [place] [address] Glucose (U) [Mass/Vol] Negative Normal Negative [facility] Comment on above: Performed By: #### L [id number] ####[facility] ([facility])[address] [place] [address] HEMOGLOBIN PRESENCE IN URINE Moderate Abnormal Negative [facility] Comment on above: Performed By: #### L [id number] ####[facility] ([facility])[address] [place] [address] Ketones Ql (U) 20 mg/dL Abnormal Negative [facility] Comment on above: Performed By: #### L [id number] ####[facility] ([facility])[address] [place] [address] LEUKOCYTE ESTERASE PRESENCE IN URINE BY TEST STRIP Trace Abnormal Negative [facility] Comment on above: Performed By: #### L [id number] ####[facility] ([facility])[address] [place] [address] NITRITE PRESENCE IN URINE Negative Normal Negative [facility] Comment on above: Performed By: #### L [id number] ####[facility] ([facility])[address] [place] [address] pH (U) 5.0 [pH] Normal 5.0-8.0 [facility] Comment on above: Performed By: #### L [id number] ####[facility] ([facility])[address] [place] [address] Protein (U) [Mass/Vol] 30 mg/dL Abnormal Negative [facility] Comment on above: Performed By: #### L [id number] ####[facility] ([facility]ER)[address] [place] [address] Specific gravity (U) [Rel density] 1.015 Normal 1.015-1.020 [facility] Comment on above: Performed By: #### L [id number] ####[facility] ([facility])[address] [place] [address] Office Visiton 04-22-2023 Follow-up visit [id number] Wm Suarez 1950 M Date Provider Department Center 04/22/2023 Roly-BENJA MCG[facility] Family History Problem Relation Age of Onset Diabetes Mother Hypertension Mother Coronary artery disease Mother Other Mother Cystic kidney disease Mother Hypertension Father Skin cancer Father Cystic kidney disease Father Cystic kidney disease Sister Heart disease Brother ALS Brother Cystic kidney disease Brother Family Status - Relation Status Age at Mother Father Sister Brother Level of Service:15636 UT OFFICE/OUTPATIENT ESTABLISHED LOW MDM 20-29 MIN Normal [facility] Documentationon 04-07-2023 Documentation [id number] Wm Suarez 1950 M Date Provider Department [...] Age at Mother Father Sister Brother Normal [facility] Orders Onlyon 04-02-2023 Orders Only [id number] Wm Suarez 1950 M Date Provider Department [...] Age at Mother Father Sister Brother Normal [facility] 29on 11-11-2022 30 Addended by: DI GALLO on: 11/11/2022 12:52 PM Modules accepted: Orders Normal [facility] BILIRUBIN, DIRECTon 11-12-19 Magnesium [Mass/Vol] 0.1 mg/dL Normal 0-0.2 [facility] Comment on above: Performed By: #### L [id number] #### [facility] ([facility]) [address] [place] [address] BK VIRUS, PLASMA, QUANTITATI VEon 11-11-2022 BK QUANTITATION Not detected Normal Not Detected [facility] Comment on above: Order Comment: DRAW Q 3 MONTHS MAY, August, November, FEBRUARY Result Comment: Meth od: BK virus was measured by quantitative polymerase chain reaction using a fluorescent hydrolysis probe targeting the polyomavirus BK RETURNS CLERK-1 gene. The lower limit of quantitation of the assay is 500 copies of BK genome per milliliter of plasma or urine, and any detectable BK DNA below that level is reported as: Detected, <500 copies/ml. Serial BK virus measurement can be used to monitor disease activity. (Reference: Katina ramirezl. J CLIN MICRO 2004; 42:4541-4011). This test was developed and its performance characteristics determined by the [facility]. It has not been approved by the US Food and Drug Administration. However, such approval is not required for clinical implementation, and test results have been shown to be clinically useful. This laboratory is CAP accredited and CLIA certified to perform high complexity testing. Performed By: #### L [id number] #### [facility] [address] [place] [address] BK QUANTITATION LOG Not detected Normal Not Detected [facility] Comment on above: Order Comment: DRAW Q 3 MONTHS MAY, August, November, FEBRUARY Performed By: #### L [id number] #### [facility] (AKER) [address] [place] [address] CBC WITH AUTO DIFFERENTIALon 11-11-2022 Basophils (Bld) [#/Vol] 0.02 10*3/uL Normal 0.00-0.20 [facility] Comment on above: Performed By: #### L [id number] ####[facility] ([facility])[address] [place] [address] Basophils/100 WBC (Bld) 0.3 % Normal 0.0-1.0 [facility] Comment on above: Performed By: #### L [id number] ####[facility] ([facility])[address] [place] [address] Eosinophils (Bld) [#/Vol] 0.09 10*3/uL Normal 0.00-0.50 [facility] Comment on above: Performed By: #### L [id number] ####[facility] ([facility])[address] [place] [address] Eosinophils/100 WBC (Bld) 1.5 % Normal 0.0-6.0 [facility] Comment on above: Performed By: #### L [id number] ####[facility] ([facility]ER)[address] [place] [address] Erythrocyte distribution width (RBC) [Ratio] 13.2 % Normal 11.5-15.0 [facility] Comment on above: Performed By: #### L [id number] ####[facility] ([facility])[address] [place] [address] ERYTHROCYTE MEAN CORPUSCULAR HEMOGLOBIN CONCENTRATION (G/DL) BY AUTOMATED 32.9 g/dL Normal 32.0-35.0 [facility] Comment on above: Performed By: #### L [id number] ####[facility] ([facility])[address] [place] [address] Hematocrit (Bld) [Volume fraction] 35.9 % Low 39.0-55.0 [facility] Comment on above: Performed By: #### L [id number] ####[facility] ([facility])[address] [place] [address] Hemoglobin (Bld) [Mass/Vol] 11.8 g/dL Low 13.0-17.0 [facility] Comment on above: Performed By: #### L [id number] ####[facility] [place] [address] Immature granulocytes (Bld) [#/Vol] 0.07 10*3/uL Normal 0.00-0.20 [facility] Comment on above: Performed By: #### L [id number] ####[facility] ([facility])[address] [place] [address] Immature granulocytes/100 WBC (Bld) 1.2 % High 0.0-1.0 [facility] Comment on above: Performed By: #### L [id number] ####[facility] ([facility])[address] [place] [address] Lymphocytes (Bld) [#/Vol] 0.96 10*3/uL Low 1.20-4.00 [facility] Comment on above: Performed By: #### L [id number] ####[facility] ([facility])[address] [place] [address] Lymphocytes/100 WBC (Bld) 16.4 % Low 20.0-45.0 [facility] Comment on above: Performed By: #### L [id number] ####[facility] [place] [address] MCH (RBC) [Entitic mass] 28.6 pg Normal 27.0-33.0 [facility] Comment on above: Performed By: #### L [id number] ####[facility] [place] [address] MCV (RBC) [Entitic vol] 86.9 fL Normal 82.0-98.0 [facility] Comment on above: Performed By: #### L [id number] ####[facility] ([facility])[address] [place] [address] Monocytes (Bld) [#/Vol] 0.61 10*3/uL Normal 0.10-1.00 [facility] Comment on above: Performed By: #### L [id number] ####[facility] ([facility])[address] [place] [address] Monocytes/100 WBC (Bld) 10.4 % Normal 5.0-12.0 [facility] Comment on above: Performed By: #### L [id number] ####[facility] ([facility])[address] [place] [place] [address] Neutrophils (Bld) [#/Vol] 4.12 10*3/uL Normal 1.60-7.60 [facility] Comment on above: Performed By: #### L [id number] ####[facility] ([facility])[address] [place] [address] Neutrophils/100 WBC (Bld) 70.2 % Normal 40.0-72.0 [facility] Comment on above: Performed By: #### L [id number] ####[facility] ([facility])[address] [place] [place] [address] NRBC (PER 100 WBCS) BY AUTOMATED COUNT 0.0 % Normal 0 [facility] Comment on above: Performed By: #### L [id number] ####[facility] ([facility])[address] [place] [place] [address] PLATELETS (10*3/UL) IN BLOOD AUTOMATED COUNT 232 10*3/uL Normal 150-400 [facility] Comment on above: Performed By: #### L [id number] ####[facility] ([facility])[address] [place] [place] [address] RBC (Bld) [#/Vol] 4.13 10*6/uL Low 4.20-5.70 [facility] Comment on above: Performed By: #### L [id number] ####[facility] ([facility])[address] [place] [address] WBC (Bld) [#/Vol] 5.87 10*3/uL Normal 4.00-10.60 [facility] Comment on above: Performed By: #### L [id number] ####[facility] (BE[facility]ER)[address] [place] [address] COMPREHENSIVE METABOLIC PANE Claudio 11-11-2022 Albumin [Mass/Vol] 4.5 g/dL Normal 3.5-5.7 [facility] Comment on above: Performed By: #### L [id number] #### [facility] [address] [place] [address] ALP [Catalytic activity/Vol] 131 U/L High 34-104 [facility] Comment on above: Performed By: #### L [id number] #### [facility] ([facility]) [address] [place] [address] ALT [Catalytic activity/Vol] 16 U/L Normal 7-52 [facility] Comment on above: Performed By: #### L [id number] #### [facility] ([facility]) [address] [place] [address] Anion gap [Moles/Vol] 14 mmol/L Normal 7-20 [facility] Comment on above: Performed By: #### L [id number] #### [facility] ([facility]) [address] [place] [address] AST [Catalytic activity/Vol] 17 U/L Normal 13-39 [facility] Comment on above: Performed By: #### L [id number] #### [facility] ([facility]) [address] [place] [address] Bilirubin [Mass/Vol] 0.4 mg/dL Normal 0.3-1.0 [facility] Comment on above: Performed By: #### L [id number] #### [facility] [address] [place] [address] Calcium [Mass/Vol] 8.0 mg/dL Low 8.6-10.3 [facility] Comment on above: Performed By: #### L [id number] #### [facility] ([facility]) [address] [place] [address] Chloride [Moles/Vol] 95 mmol/L Low 98-107 [facility] Comment on above: Performed By: #### L [id number] #### [facility] ([facility]) [address] [place] [address] CO2 [Moles/Vol] 24 mmol/L Normal 21-31 [facility] Comment on above: Performed By: #### L [id number] #### [facility] ([facility]) [address] [place] [address] Creatinine [Mass/Vol] 1.03 mg/dL Normal 0.70-1.30 [facility] Comment on above: Performed By: #### L [id number] #### [facility] ([facility]) [address] [place] [address] GLOMERULAR FILTRATION RATE ML/MIN/1.73 SQ M.PREDICTED 78.1 mL/min/1.73m*2 Normal >60.0 [facility] Comment on above: Result Comment: [facility]???s estimated glomerular filtration rate (eGFR) will [...] individuals. Performed By: #### L [id number] #### [facility] ([facility]) [address] [place] [address] Glucose [Mass/Vol] 202 mg/dL High 70-100 [facility] Comment on above: Performed By: #### L [id number] #### [facility] ([facility]) [address] [place] [address] Potassium [Moles/Vol] 4.6 mmol/L Normal 3.5-5.1 [facility] Comment on above: Performed By: #### L [id number] #### [facility] ([facility]) [address] [place] [address] Protein [Mass/Vol] 6.7 g/dL Normal 6.0-8.3 [facility] Comment on above: Performed By: #### L [id number] #### [facility] ([facility]) [address] [place] [address] Sodium [Moles/Vol] 128 mmol/L Low 136-145 [facility] Comment on above: Performed By: #### L [id number] #### [facility] ([facility]) [address] [place] [address] Urea nitrogen [Mass/Vol] 11 mg/dL Normal - [facility] Comment on above: Performed By: #### L [id number] #### [facility] ([facility]) [address] [place] [address] UREA NITROGEN/CREATININE (MASS RATIO) IN SER/PLAS 10.7 Normal [facility] Comment on above: Performed By: #### L [id number] #### [facility] ([facility]) [address] [place] [address] Documentationon 11-11-2022 Documentation [id number] Wm Suarez 1950 M Date Provider Department [...] Age at Mother Father Sister Brother Normal [facility] Documentation [id number] Wm Suarez 1950 M Date Provider Department [...] Age at Mother Father Sister Brother Normal [facility] Follow-Upon 11-11-2022 Follow-Up [id number] Wm Suarez 1950 M Date Provider Department [...] at Mother Father Sister Brother Level of Service:17099 [place] OFFICE/OUTPATIENT ESTABLISHED LOW MDM 20-29 MIN Reason for Visit and Comments: Kidney Follow-up [[id number]] - 6 mo follow No concerns Normal [facility] HEMOGLOBIN A1Con 11-11-2022 Glucose [Mass/Vol] 197 mg/dL Normal [facility] Comment on above: Order Comment: DRAW Q 3 MONTHS MAY, August, November, FEBRUARY Performed By: #### L [id number] #### [facility] ([facility]) [address] [place] [address] HbA1c (Bld) [Mass fraction] 8.5 % High 4.0-6.0 [facility] Comment on above: Order Comment: DRAW Q 3 MONTHS MAY, August, November, FEBRUARY Performed By: #### L [id number] #### [facility] ([facility]) [address] [place] [address] LIPID PANELon 11-11-2022 CHOL/HDL 2.2 mg/dL Normal [facility] Comment on above: Performed By: #### L [id number] #### [facility] ([facility]) [address] [place] [address] Cholesterol [Mass/Vol] 90 mg/dL Low 120-200 [facility] Comment on above: Performed By: #### L [id number] #### [facility] ([facility]) [address] [place] [address] Magnesium [Mass/Vol] 60 mg/dL Normal 40-149 [facility] Comment on above: Result Comment: TRIG LYCERIDE REFERENCE RANGE: 20 YEARS AND OLDER CARDIOVASCULAR RISK LESS THAN 150 mg/dL LOW RISK 150 TO 199 mg/dL BORDERLINE RISK 200 mg/dL AND GREATER HIGH RISK Performed By: #### L [id number] #### [facility] ([facility]) [address] [place] [address] Magnesium [Mass/Vol] 37 mg/dL Normal 0-160 [facility] Comment on above: Performed By: #### L [id number] #### [facility] [address] [place] [address] Magnesium [Mass/Vol] 41 mg/dL Normal 23-92 [facility] Comment on above: Performed By: #### L [id number] #### [facility] [address] [place] [address] NON HDL CHOL. (LDL+VLDL) 49 Normal [facility] Comment on above: Performed By: #### L [id number] #### [facility] [address] [place] [address] TOTAL VLDL-C 12 mg/dL Normal 0-40 [facility] Comment on above: Performed By: #### L [id number] #### [facility] ([facility]) [address] [place] [address] Labon 11-11-2022 Lab [id number] Wm Suarez 1950 M Date Provider Department Center 11/11/202270612-N[place]T DRAW STATION KXT Draw [facility] Family History Problem Relation Age of Onset Diabetes Mother Hypertension Mother Coronary artery disease Mother Other Mother Cystic kidney disease Mother Hypertension Father Skin cancer Father Cystic kidney disease Father Cystic kidney disease Sister Heart disease Brother ALS Brother Cystic kidney disease Brother Family Status - Relation Status Age at Mother Father Sister Brother Normal [facility] MAGNESIUMon 11-11-2022 Magnesium [Mass/Vol] 1.3 mg/dL Low 1.9-2.7 [facility] Comment on above: Performed By: #### L [id number] #### [facility] ([facility]) [address] [place] [place] [address] Orders Onlyon 11-11-2022 Orders Only [id number] Carrillo 1950 M Date Provider Department Center [...] Age at Mother Father Sister Brother Normal [facility] PHOSPHORUSon 11-11-2022 Magnesium [Mass/Vol] 4.2 mg/dL Normal 2.5-5.0 [facility] Comment on above: Performed By: #### L [id number] #### [facility] ([facility]) [address] [place] [address] TACROLIMUS LEVELon Tacrolimus (Bld) [Mass/Vol] 6.2 ng/mL Normal 5.0-20.0 [facility] Comment on above: Result Comment: DRAW Q 3 MONTHS MAY, August, November, FEBRUARY Performed By: #### L [id number] #### [facility] [address] [place] [address] URIC ACIDon 11-11-2022 Magnesium [Mass/Vol] 6.0 mg/dL Normal 4.4-7.6 [facility] Comment on above: Performed By: #### L [id number] ####[facility] ([facility])[address] [place] [address] FK506 (TACROLIMUS) WHOLE BLO ODon 10-06-2022 Tacrolimus (FK506), Blood 3.8 ng/mL Normal 2.0-20.0 [facility] Comment on above: Result Comment: Trou gh (immediately following transplant) 15.0 . Trough (steady state, 2 weeks or more after transplant): 3.0 - 8.0 . Performed by LC-MS/MS technology. Performed By: #### U CLINT, CMP, LIPID, DBIL, PHOS, MG #### [facility] [address] [address] [address] Brea Causey BILIRUBIN CONJUGATED (DIRECT )on 10-03-2022 BILI, CONJUGATED 0.1 mg/dL Normal 0.0-0.2 [facility] Comment on above: Performed By: #### C BC #### [facility] [address] [place] [address] Dr. Brea Causey CBC AUTO DIFFon 10-03-2022 BASO # 0.0 103/ul Normal 0.0-0.1 [facility] Comment on above: Performed By: #### U CLINT, CMP, LIPID, DBIL, PHOS, MG #### [facility] [address] [place] [address] Dr. Brea Causey Basophils/100 WBC (Bld) 0.5 % Normal 0.2-2.0 [facility] Comment on above: Performed By: #### U CLINT, CMP, LIPID, DBIL, PHOS, MG #### [facility] [address] [place] [address] Dr. Brea Causey EO # 0.1 103/ul Normal 0.0-0.7 [facility] Comment on above: Performed By: #### U CLINT, CMP, LIPID, DBIL, PHOS, MG #### [facility] [address] [place] [address] Dr. Brea Causey Eosinophils/100 WBC (Bld) 2.3 % Normal 0.9-7.0 [facility] Comment on above: Performed By: #### U CLINT, CMP, LIPID, DBIL, PHOS, MG #### [facility] [address] [place] [address] Dr. Brea Causey Erythrocyte distribution width (RBC) [Ratio] 13.2 % Normal 11.0-15.0 [facility] Comment on above: Performed By: #### U CLINT, CMP, LIPID, DBIL, PHOS, MG #### [facility] [address] [place] [address] Dr. Brea Causey Hematocrit (Bld) [Volume fraction] 35.0 % Critically low 42.0-54.0 [facility] Comment on above: Performed By: #### U CLINT, CMP, LIPID, DBIL, PHOS, MG #### [facility] [address] [place] [address] Dr. Brea Causey Hemoglobin (Bld) [Mass/Vol] 11.7 g/dL Critically low 14.0-18.0 [facility] Comment on above: Performed By: #### U CLINT, CMP, LIPID, DBIL, PHOS, MG #### [facility] [address] [place] [address] Dr. Brea Causey IG # 0.06 10e3/ul Critically high 0.00-0.03 [facility] Comment on above: Performed By: #### U CLINT, CMP, LIPID, DBIL, PHOS, MG #### [facility] [address] [place] [address] Dr. Brea Causey IG % 1.1 % Critically high 0.0-0.5 [facility] Comment on above: Performed By: #### U CLINT, CMP, LIPID, DBIL, PHOS, MG #### [facility] [address] [place] [address] Dr. Brea Causey LYMPH # 0.8 103/ul Critically low 1.2-3.8 [facility] Comment on above: Performed By: #### U CLINT, CMP, LIPID, DBIL, PHOS, MG #### [facility] [address] [place] [address] Dr. Brea Causey Lymphocytes/100 WBC (Bld) 14.9 % Critically low 20.5-60.0 [facility] Comment on above: Performed By: #### U CLINT, CMP, LIPID, DBIL, PHOS, MG #### [facility] [address] [place] [address] Dr. Brea Causey MANUAL DIFF REQ NO Normal [facility] Comment on above: Performed By: #### U CLINT, CMP, LIPID, DBIL, PHOS, MG #### [facility] [address] [place] [address] Dr. Brea Causey MCH (RBC) [Entitic mass] 28.8 pg Normal 25.9-34.0 [facility] Comment on above: Performed By: #### U CLINT, CMP, LIPID, DBIL, PHOS, MG #### [facility] [address] [place] [address] Dr. Brea Causey MCHC (RBC) [Mass/Vol] 33.4 g/dL Normal 29.9-35.2 [facility] Comment on above: Performed By: #### U CLINT, CMP, LIPID, DBIL, PHOS, MG #### [facility] [address] [place] [address] Dr. Brea Casuey MCV (RBC) [Entitic vol] 86.2 fL Normal 80.0-94.0 [facility] Comment on above: Performed By: #### U CLINT, CMP, LIPID, DBIL, PHOS, MG #### [facility] [address] [place] [address] Dr. Brea Causey MONO # 0.5 103/ul Normal 0.3-0.8 [facility] Comment on above: Performed By: #### U CLINT, CMP, LIPID, DBIL, PHOS, MG #### [facility] [address] [place] [address] Dr. Brea Causey Monocytes/100 WBC (Bld) 9.1 % Normal 1.7-12.0 [facility] Comment on above: Performed By: #### U CLINT, CMP, LIPID, DBIL, PHOS, MG #### [facility] [address] [place] [address] Dr. Brea Causey NEUT # 4.1 103/ul Normal 1.4-6.5 [facility] Comment on above: Performed By: #### U CLINT, CMP, LIPID, DBIL, PHOS, MG #### [facility] [address] [place] [address] Dr. Brea Causey Neutrophils/100 WBC (Bld) 72.1 % Normal 43.0-75.0 [facility] Comment on above: Performed By: #### U CLINT, CMP, LIPID, DBIL, PHOS, MG #### [facility] [address] [place] [address] Dr. Brea Causey Platelet mean volume (Bld) [Entitic vol] 9.0 fL Critically low 9.5-13.5 [facility] Comment on above: Performed By: #### U CLINT, CMP, LIPID, DBIL, PHOS, MG #### [facility] [address] [address] [address] Brea Causey PLT 211 103/ul Normal 150-450 [facility] Comment on above: Performed By: #### U CLINT, CMP, LIPID, DBIL, PHOS, MG #### [facility] [address] [address] [address] Brea Causey RBC 4.06 106/ul Critically low 4.70-6.10 [facility] Comment on above: Performed By: #### U CLINT, CMP, LIPID, DBIL, PHOS, MG #### [facility] [address] [address] [address] Brea Causey WBC 5.6 103/ul Normal 4.0-11.0 [facility] Comment on above: Performed By: #### U CLINT, CMP, LIPID, DBIL, PHOS, MG #### [facility] [address] [place] [address] Dr. Brea Causey LIPID PROFILEon 10-03-2022 CHOL-HDL RATIO NORM SEE BELOW Normal [facility] Comment on above: Result Comment: 3.3 - 4.4 LOW RISK 4.4 - 7.1 AVERAGE RISK 7.1 - 11.0 MODERATE RISK >11.0 HIGH RISK Performed By: #### C BC #### [facility] [address] [place] [address] Dr. Brea Causey Cholesterol [Mass/Vol] 93 mg/dL Normal <=200 [facility] Comment on above: Performed By: #### C BC #### [facility] [address] [place] [address] Dr. Brea Causey Cholesterol in HDL [Mass/Vol] 43 mg/dL Normal 40-60 [facility] Comment on above: Performed By: #### C BC #### [facility] [address] [place] [address] Dr. Brea Causey Cholesterol in LDL [Mass/Vol] 37.6 mg/dL Normal [facility] Comment on above: Performed By: #### C BC #### [facility] [address] [place] [address] Dr. Brea Causey Cholesterol.total/Cho lesterol in HDL [Mass ratio] 2.2 {ratio} Normal [facility] Comment on above: Performed By: #### C BC #### [facility] [address] [address] [address] Brea Causey HDL NORMAL > or = 60 mg/dl - LO W CARDIOVASCULAR RISK <40 mg/dl - HIGH CARDIOVASCULAR RISK Normal [facility] Comment on above: Performed By: #### C BC #### [facility] [address] [address] [address] Brea Causey LDL CALC NORMAL SEE BELOW Normal [facility] Comment on above: Result Comment: <100 mg/dl OPTIMAL 100 - 129 mg/dl NEAR OR ABOVE OPTIMAL 130 - 159 mg/dl BORDERLINE HIGH 160 - 189 mg/dl HIGH >190 mg/dl VERY HIGH Performed By: #### C BC #### [facility] [address] [address] [address] Brea Causey Triglyceride [Mass/Vol] 62 mg/dL Normal <=150 [facility] Comment on above: Performed By: #### C BC #### [facility] [address] [address] [address] Brea Causey VLDL CALC 12.4 mg/dL Normal [facility] Comment on above: Performed By: #### C BC #### [facility] [address] [address] [address] Brea Causey MAGNESIUMon 10-03-2022 Magnesium [Mass/Vol] 1.5 mg/dL Critically low 1.8-2.4 [facility] Comment on above: Performed By: #### C BC #### [facility] [address] [address] [address] Brea Causey PHOSPHORUSon 10-03-2022 Phosphate [Mass/Vol] 4.4 mg/dL Normal 2.6-4.7 [facility] Comment on above: Performed By: #### C BC #### [facility] [address] [address] [address] Brea Causey PROF 14(COMP METB)on 05-25-2 023 Albumin [Mass/Vol] 3.8 g/dL Normal 3.4-5.0 [facility] Comment on above: Performed By: #### C BC #### [facility] [address] [place] [address] Dr. Brea Causey Albumin/Globulin [Mass ratio] 1.1 {ratio} Normal [facility] Comment on above: Performed By: #### C BC #### [facility] [address] [place] [address] Dr. Brea Causey ALP [Catalytic activity/Vol] 190 U/L Critically high 46-116 [facility] Comment on above: Performed By: #### C BC #### [facility] [address] [place] [address] Dr. Brea Causey ALT [Catalytic activity/Vol] 26 U/L Normal 16-63 [facility] Comment on above: Performed By: #### C BC #### [facility] [address] [place] [address] Dr. Brea Causey Anion gap [Moles/Vol] 15.3 mmol/L Normal [facility] Comment on above: Performed By: #### C BC #### [facility] [address] [place] [address] Dr. Brea Causey AST [Catalytic activity/Vol] 23 U/L Normal 15-37 [facility] Comment on above: Performed By: #### C BC #### [facility] [address] [place] [address] Dr. Brea Causey Bilirubin [Mass/Vol] 0.4 mg/dL Normal 0.2-1.0 [facility] Comment on above: Performed By: #### C BC #### [facility] [address] [place] [address] Dr. Brea Causey Calcium [Mass/Vol] 7.8 mg/dL Critically low 8.5-10.1 [facility] Comment on above: Performed By: #### C BC #### [facility] [address] [place] [address] Dr. Brea Causey Chloride [Moles/Vol] 97 mmol/L Critically low 98-107 [facility] Comment on above: Performed By: #### C BC #### [facility] [address] [address] [address] Brea Causey CO2 [Moles/Vol] 25.6 mmol/L Normal 21.0-32.0 [facility] Comment on above: Performed By: #### C BC #### [facility] [address] [address] [address] Brea Causey Creatinine [Mass/Vol] 1.03 mg/dL Normal 0.70-1.30 [facility] Comment on above: Performed By: #### C BC #### [facility] [address] [address] [address] Brea Causey EGFR-AF LUXEMBOURGER >60 Normal >=60 [facility] Comment on above: Performed By: #### C BC #### [facility] [address] [place] [address] Dr. Brea Causey EGFR-NON AF LUXEMBOURGER >60 Normal >=60 [facility] Comment on above: Performed By: #### C BC #### [facility] [address] [place] [address] Dr. Brea Causey Globulin (S) [Mass/Vol] 3.6 g/dL Normal [facility] Comment on above: Performed By: #### C BC #### [facility] [address] [address] [address] Brea Causey Glucose [Mass/Vol] 188 mg/dL Critically high 74-106 [facility] Comment on above: Performed By: #### C BC #### [facility] [address] [place] [address] Dr. Brea Causey Potassium [Moles/Vol] 4.9 mmol/L Normal 3.5-5.1 [facility] Comment on above: Performed By: #### C BC #### [facility] [address] [place] [address] Dr. Brea Causey Protein [Mass/Vol] 7.4 g/dL Normal 6.4-8.2 [facility] Comment on above: Performed By: #### C BC #### [facility] [address] [address] [address] Brea Causey Sodium [Moles/Vol] 133 mmol/L Critically low 136-145 [facility] Comment on above: Performed By: #### C BC #### [facility] [address] [place] [address] Dr. Brea Causey Urea nitrogen [Mass/Vol] 11.0 mg/dL Normal 7.0-18.0 [facility] Comment on above: Performed By: #### C BC #### [facility] [address] [place] [address] Dr. Brea Causey Urea nitrogen/Creatinine [Mass ratio] 10.7 mg/mg Normal [facility] Comment on above: Performed By: #### C BC #### [facility] [address] [place] [address] Dr. Brea Causey URIC ACID SERUMon 10-03-2022 Urate [Mass/Vol] 5.7 mg/dL Normal 3.5-7.2 [facility] Comment on above: Performed By: #### C BC #### [facility] [address] [place] [address] Dr. Brea Causey BK VIRUS PCR QUANTon 023 BKV DNA QUANT PCR PLASMA Negative Normal Negative [facility] Comment on above: Result Comment: No B K DNA detected. . The linear range of the assay is 22 - 100,000,000 IU/mL. Performed By: #### U CLINT, CMP, LIPID, DBIL, PHOS, MG #### [facility] [address] [place] [address] Dr. Brea Causey Log10 BKV DNA Plasma Normal [facility] Comment on above: Performed By: #### U CLINT, CMP, LIPID, DBIL, PHOS, MG #### [facility] [address] [place] [address] Dr. Brea Causey FK506 (TACROLIMUS) WHOLE BLO ODon 09-02-2022 Tacrolimus (FK506), Blood 3.8 ng/mL Normal 2.0-20.0 [facility] Comment on above: Result Comment: Trou gh (immediately following transplant) 15.0 . Trough (steady state, 2 weeks or more after transplant): 3.0 - 8.0 . Performed by LC-MS/MS technology. Performed By: #### U CLINT, CMP, LIPID, DBIL, PHOS, MG #### [facility] [address] [place] [address] Dr. Brea Causey TESTOSTERONE, FREE,DIRECT, T OTALon 09-01-2022 Free Testosterone(Direct) 9.7 pg/mL Normal 6.6-18.1 [facility] Comment on above: Result Comment: Perf ormed at: BN Performed By: #### U CLINT, CMP, LIPID, DBIL, PHOS, MG #### [facility] [address] [place] [address] Dr. Brea Causey Testosterone [Mass/Vol] 565 ng/dL Normal 264-916 [facility] Comment on above: Result Comment: Adul t male reference interval is based on a population of healthy nonobese males (BMI <30) between 19 and 39 years old. Steven et.al. JCEM 2017,102;2151-1766. PMID: [id number]. Performed at: CB Performed By: #### U CLINT, CMP, LIPID, DBIL, PHOS, MG #### [facility] [address] [place] [address] Dr. Brea Causey BILIRUBIN CONJUGATED (DIRECT )on 08-30-2022 BILI, CONJUGATED 0.1 mg/dL Normal 0.0-0.2 [facility] Comment on above: Performed By: #### U CLINT, CMP, LIPID, DBIL, PHOS, MG #### [facility] [address] [place] [address] Dr. Brea Causey CBC AUTO DIFFon 08-30-2022 BASO # 0.0 103/ul Normal 0.0-0.1 [facility] Comment on above: Performed By: #### U CLINT, CMP, LIPID, DBIL, PHOS, MG #### [facility] [address] [place] [address] Dr. Brea Causey Basophils/100 WBC (Bld) 0.7 % Normal 0.2-2.0 [facility] Comment on above: Performed By: #### U CLINT, CMP, LIPID, DBIL, PHOS, MG #### [facility] [address] [address] [address] Brea Causey EO # 0.2 103/ul Normal 0.0-0.7 [facility] Comment on above: Performed By: #### U CLINT, CMP, LIPID, DBIL, PHOS, MG #### [facility] [address] [place] [address] Dr. Brea Causey Eosinophils/100 WBC (Bld) 3.6 % Normal 0.9-7.0 [facility] Comment on above: Performed By: #### U CLINT, CMP, LIPID, DBIL, PHOS, MG #### [facility] [address] [place] [address] Dr. Brea Causey Erythrocyte distribution width (RBC) [Ratio] 13.2 % Normal 11.0-15.0 [facility] Comment on above: Performed By: #### U CLINT, CMP, LIPID, DBIL, PHOS, MG #### [facility] [address] [place] [address] Dr. Brea Causey Hematocrit (Bld) [Volume fraction] 36.0 % Critically low 42.0-54.0 [facility] Comment on above: Performed By: #### U CLINT, CMP, LIPID, DBIL, PHOS, MG #### [facility] [address] [place] [address] Dr. Brea Causey Hemoglobin (Bld) [Mass/Vol] 12.2 g/dL Critically low 14.0-18.0 [facility] Comment on above: Performed By: #### U CLINT, CMP, LIPID, DBIL, PHOS, MG #### [facility] [address] [place] [address] Dr. Brea Causey IG # 0.07 10e3/ul Critically high 0.00-0.03 [facility] Comment on above: Performed By: #### U CLINT, CMP, LIPID, DBIL, PHOS, MG #### [facility] [address] [place] [address] Dr. Brea Causey IG % 1.2 % Critically high 0.0-0.5 [facility] Comment on above: Performed By: #### U CLINT, CMP, LIPID, DBIL, PHOS, MG #### [facility] [address] [place] [address] Dr. Brea Causey LYMPH # 0.9 103/ul Critically low 1.2-3.8 [facility] Comment on above: Performed By: #### U CLINT, CMP, LIPID, DBIL, PHOS, MG #### [facility] [address] [place] [address] Dr. Brea Causey Lymphocytes/100 WBC (Bld) 15.0 % Critically low 20.5-60.0 [facility] Comment on above: Performed By: #### U CLINT, CMP, LIPID, DBIL, PHOS, MG #### [facility] [address] [place] [address] Dr. Brea Causey MANUAL DIFF REQ NO Normal [facility] Comment on above: Performed By: #### U CLINT, CMP, LIPID, DBIL, PHOS, MG #### [facility] [address] [place] [address] Dr. Brea Causey MCH (RBC) [Entitic mass] 29.4 pg Normal 25.9-34.0 [facility] Comment on above: Performed By: #### U CLINT, CMP, LIPID, DBIL, PHOS, MG #### [facility] [address] [place] [address] Dr. Brea Causey MCHC (RBC) [Mass/Vol] 33.9 g/dL Normal 29.9-35.2 [facility] Comment on above: Performed By: #### U CLINT, CMP, LIPID, DBIL, PHOS, MG #### [facility] [address] [place] [address] Dr. Brea Causey MCV (RBC) [Entitic vol] 86.7 fL Normal 80.0-94.0 [facility] Comment on above: Performed By: #### U CLINT, CMP, LIPID, DBIL, PHOS, MG #### [facility] [address] [place], [place] [id number] Dr. Brea Causey MONO # 0.5 103/ul Normal 0.3-0.8 [facility] Comment on above: Performed By: #### U CLINT, CMP, LIPID, DBIL, PHOS, MG #### [facility] [address] [place] [address] Dr. Brea Causey Monocytes/100 WBC (Bld) 9.0 % Normal 1.7-12.0 [facility] Comment on above: Performed By: #### U CLINT, CMP, LIPID, DBIL, PHOS, MG #### [facility] [address] [place] [address] Dr. Brea Causey NEUT # 4.2 103/ul Normal 1.4-6.5 [facility] Comment on above: Performed By: #### U CLINT, CMP, LIPID, DBIL, PHOS, MG #### [facility] [address] [place] [address] Dr. Brea Causey Neutrophils/100 WBC (Bld) 70.5 % Normal 43.0-75.0 [facility] Comment on above: Performed By: #### U CLINT, CMP, LIPID, DBIL, PHOS, MG #### [facility] [facility] [address] [place] [address] Dr. Brea Causey Platelet mean volume (Bld) [Entitic vol] 8.7 fL Critically low 9.5-13.5 [facility] Comment on above: Performed By: #### U CLINT, CMP, LIPID, DBIL, PHOS, MG #### [facility] [address] [place] [address] Dr. Brea Causey PLT 247 103/ul Normal 150-450 [facility] Comment on above: Performed By: #### U CLINT, CMP, LIPID, DBIL, PHOS, MG #### [facility] [address] [place] [address] Dr. Brea Causey RBC 4.15 106/ul Critically low 4.70-6.10 [facility] Comment on above: Performed By: #### U CLINT, CMP, LIPID, DBIL, PHOS, MG #### [facility] [address] [address] [address] Brea Causey WBC 5.9 103/ul Normal 4.0-11.0 [facility] Comment on above: Performed By: #### U CLINT, CMP, LIPID, DBIL, PHOS, MG #### [facility] [address] [address] [address] Brea Causey GLYCOHEMOGLOBIN A1Con 2022 ADA RECOMMENDATION SEE BELOW Normal [facility] Comment on above: Result Comment: ADA RECOMMENDED LIMIT 4.0 - 6.0 ADA THERAPEUTIC TARGET < 7.0 ACTION SUGGESTED > 7.0 Performed By: #### U CLINT, CMP, LIPID, DBIL, PHOS, MG #### [facility] [address] [address] [address] Brea Causey Glucose [Mass/Vol] 177 mg/dL Normal [facility] Comment on above: Performed By: #### U CLINT, CMP, LIPID, DBIL, PHOS, MG #### [facility] [address] [address] [address] Brea Causey HbA1c (Bld) [Mass fraction] 7.8 % Critically high 4.5-6.2 [facility] Comment on above: Performed By: #### U CLINT, CMP, LIPID, DBIL, PHOS, MG #### [facility] [address] [address] [address] Brea Causey LIPID PROFILEon 08-30-2022 CHOL-HDL RATIO NORM SEE BELOW Normal [facility] Comment on above: Result Comment: 3.3 - 4.4 LOW RISK 4.4 - 7.1 AVERAGE RISK 7.1 - 11.0 MODERATE RISK >11.0 HIGH RISK Performed By: #### U CLINT, CMP, LIPID, DBIL, PHOS, MG #### [facility] [address] [place] [address] Dr. Brea Causey Cholesterol [Mass/Vol] 96 mg/dL Normal <=200 [facility] Comment on above: Performed By: #### U CLINT, CMP, LIPID, DBIL, PHOS, MG #### [facility] [address] [address] [address] Brea Causey Cholesterol in HDL [Mass/Vol] 48 mg/dL Normal 40-60 [facility] Comment on above: Performed By: #### U CLINT, CMP, LIPID, DBIL, PHOS, MG #### [facility] [address] [address] [address] Brea Causey Cholesterol in LDL [Mass/Vol] 40.2 mg/dL Normal [facility] Comment on above: Performed By: #### U CLINT, CMP, LIPID, DBIL, PHOS, MG #### [facility] [address] [address] [address] Brea Causey Cholesterol.total/Cho lesterol in HDL [Mass ratio] 2.0 {ratio} Normal [facility] Comment on above: Performed By: #### U CLINT, CMP, LIPID, DBIL, PHOS, MG #### [facility] [address] [address] [address] Brea Causey HDL NORMAL > or = 60 mg/dl - LO W CARDIOVASCULAR RISK <40 mg/dl - HIGH CARDIOVASCULAR RISK Normal [facility] Comment on above: Performed By: #### U CLINT, CMP, LIPID, DBIL, PHOS, MG #### [facility] [address] [address] [address] Brea Causey LDL CALC NORMAL SEE BELOW Normal [facility] Comment on above: Result Comment: <100 mg/dl OPTIMAL 100 - 129 mg/dl NEAR OR ABOVE OPTIMAL 130 - 159 mg/dl BORDERLINE HIGH 160 - 189 mg/dl HIGH >190 mg/dl VERY HIGH Performed By: #### U CLINT, CMP, LIPID, DBIL, PHOS, MG #### [facility] [address] [address] [address] Brea Causey Triglyceride [Mass/Vol] 39 mg/dL Normal <=150 [facility] Comment on above: Performed By: #### U CLINT, CMP, LIPID, DBIL, PHOS, MG #### [facility] [address] [address] [address] Brea Causey VLDL CALC 7.8 mg/dL Normal [facility] Comment on above: Performed By: #### U CLINT, CMP, LIPID, DBIL, PHOS, MG #### [facility] [address] [place] [address] Dr. Brea Causey MAGNESIUMon 08-30-2022 Magnesium [Mass/Vol] 1.5 mg/dL Critically low 1.8-2.4 [facility] Comment on above: Performed By: #### U CLINT, CMP, LIPID, DBIL, PHOS, MG #### [facility] [address] [place] [address] Dr. Brea Causey PHOSPHORUSon 08-30-2022 Phosphate [Mass/Vol] 4.0 mg/dL Normal 2.6-4.7 [facility] Comment on above: Performed By: #### U CLINT, CMP, LIPID, DBIL, PHOS, MG #### [facility] [address] [place] [address] Dr. Brea Causey PROF 14(COMP METB)on 023 Albumin [Mass/Vol] 3.8 g/dL Normal 3.4-5.0 [facility] Comment on above: Performed By: #### U CLINT, CMP, LIPID, DBIL, PHOS, MG #### [facility] [address] [place] [address] Dr. Brea Causey Albumin/Globulin [Mass ratio] 1.1 {ratio} Normal [facility] Comment on above: Performed By: #### U CLINT, CMP, LIPID, DBIL, PHOS, MG #### [facility] [address] [place] [address] Dr. Brea Causey ALP [Catalytic activity/Vol] 177 U/L Critically high 46-116 [facility] Comment on above: Performed By: #### U CLINT, CMP, LIPID, DBIL, PHOS, MG #### [facility] [address] [place] [address] Dr. Brea Causey ALT [Catalytic activity/Vol] 27 U/L Normal 16-63 [facility] Comment on above: Performed By: #### U CLINT, CMP, LIPID, DBIL, PHOS, MG #### [facility] [address] [place] [address] Dr. Brea Causey Anion gap [Moles/Vol] 12.1 mmol/L Normal [facility] Comment on above: Performed By: #### U CLINT, CMP, LIPID, DBIL, PHOS, MG #### [facility] [address] [place] [address] Dr. Brea Causey AST [Catalytic activity/Vol] 19 U/L Normal 15-37 [facility] Comment on above: Performed By: #### U CLINT, CMP, LIPID, DBIL, PHOS, MG #### [facility] [address] [place] [address] Dr. Brea Causey Bilirubin [Mass/Vol] 0.3 mg/dL Normal 0.2-1.0 [facility] Comment on above: Performed By: #### U CLINT, CMP, LIPID, DBIL, PHOS, MG #### [facility] [address] [place] [address] Dr. Brea Causey Calcium [Mass/Vol] 8.0 mg/dL Critically low 8.5-10.1 [facility] Comment on above: Performed By: #### U CLINT, CMP, LIPID, DBIL, PHOS, MG #### [facility] [address] [place] [address] Dr. Brea Causey Chloride [Moles/Vol] 96 mmol/L Critically low 98-107 [facility] Comment on above: Performed By: #### U CLINT, CMP, LIPID, DBIL, PHOS, MG #### [facility] [address] [place] [address] Dr. Brea Causey CO2 [Moles/Vol] 28.0 mmol/L Normal 21.0-32.0 [facility] Comment on above: Performed By: #### U CLINT, CMP, LIPID, DBIL, PHOS, MG #### [facility] [address] [place] [address] Dr. Brea Causey Creatinine [Mass/Vol] 1.07 mg/dL Normal 0.70-1.30 [facility] Comment on above: Performed By: #### U CLINT, CMP, LIPID, DBIL, PHOS, MG #### [facility] [address] [address] [address] Brea Causey EGFR-AF LUXEMBOURGER >60 Normal >=60 [facility] Comment on above: Performed By: #### U CLINT, CMP, LIPID, DBIL, PHOS, MG #### [facility] [address] [address] [address] Brea Causey EGFR-NON AF LUXEMBOURGER >60 Normal >=60 [facility] Comment on above: Performed By: #### U CLINT, CMP, LIPID, DBIL, PHOS, MG #### [facility] [address] [address] [address] Brea Causey Globulin (S) [Mass/Vol] 3.5 g/dL Normal [facility] Comment on above: Performed By: #### U CLINT, CMP, LIPID, DBIL, PHOS, MG #### [facility] [address] [address] [address] Brea Causey Glucose [Mass/Vol] 179 mg/dL Critically high 74-106 [facility] Comment on above: Performed By: #### U CLINT, CMP, LIPID, DBIL, PHOS, MG #### [facility] [address] [address] [address] Brea Causey Potassium [Moles/Vol] 5.1 mmol/L Normal 3.5-5.1 [facility] Comment on above: Performed By: #### U CLINT, CMP, LIPID, DBIL, PHOS, MG #### [facility] [address] [address] [address] Brea Causey Protein [Mass/Vol] 7.3 g/dL Normal 6.4-8.2 [facility] Comment on above: Performed By: #### U CLINT, CMP, LIPID, DBIL, PHOS, MG #### [facility] [address] [address] [address] Brea Causey Sodium [Moles/Vol] 131 mmol/L Critically low 136-145 [facility] Comment on above: Performed By: #### U CLINT, CMP, LIPID, DBIL, PHOS, MG #### [facility] [address] [place] [address] Dr. Brea Causey Urea nitrogen [Mass/Vol] 10.0 mg/dL Normal 7.0-18.0 [facility] Comment on above: Performed By: #### U CLINT, CMP, LIPID, DBIL, PHOS, MG #### [facility] [address] [place] [address] Dr. Brea Causey Urea nitrogen/Creatinine [Mass ratio] 9.3 mg/mg Normal [facility] Comment on above: Performed By: #### U CLINT, CMP, LIPID, DBIL, PHOS, MG #### [facility] [address] [place] [address] Dr. Brea Causey URIC ACID SERUMon 08-30-2022 Urate [Mass/Vol] 6.0 mg/dL Normal 3.5-7.2 [facility] Comment on above: Performed By: #### U CLINT, CMP, LIPID, DBIL, PHOS, MG #### [facility] [address] [place] [address] Dr. Brea Causey FK506 (TACROLIMUS) WHOLE BLO ODon 08-03-2022 Tacrolimus (FK506), Blood 3.2 ng/mL Normal 2.0-20.0 [facility] Comment on above: Result Comment: Trou gh (immediately following transplant) 15.0 . Trough (steady state, 2 weeks or more after transplant): 3.0 - 8.0 . Performed by LC-MS/MS technology. Performed By: #### C BC #### [facility] [address] [place] [address] Dr. Brea Causey BILIRUBIN CONJUGATED (DIRECT )on 08-01-2022 BILI, CONJUGATED 0.1 mg/dL Normal 0.0-0.2 [facility] Comment on above: Performed By: #### U CLINT, CMP, LIPID, DBIL, PHOS, MG #### [facility] [address] [place] [address] Dr. Brea Causey CBC AUTO DIFFon 08-01-2022 BASO # 0.0 103/ul Normal 0.0-0.1 [facility] Comment on above: Performed By: #### C BC #### [facility] [address] [address] [address] Brea Causey Basophils/100 WBC (Bld) 0.7 % Normal 0.2-2.0 [facility] Comment on above: Performed By: #### C BC #### [facility] [address] [address] [address] Brea Causey EO # 0.1 103/ul Normal 0.0-0.7 [facility] Comment on above: Performed By: #### C BC #### [facility] [address] [address] [address] Brea Causey Eosinophils/100 WBC (Bld) 2.4 % Normal 0.9-7.0 [facility] Comment on above: Performed By: #### C BC #### [facility] [address] [place] [address] Dr. Brea Causey Erythrocyte distribution width (RBC) [Ratio] 13.3 % Normal 11.0-15.0 [facility] Comment on above: Performed By: #### C BC #### [facility] [address] [place] [address] Dr. Brea Causey Hematocrit (Bld) [Volume fraction] 36.5 % Critically low 42.0-54.0 [facility] Comment on above: Performed By: #### C BC #### [facility] [address] [place] [address] Dr. Brea Causey Hemoglobin (Bld) [Mass/Vol] 12.1 g/dL Critically low 14.0-18.0 [facility] Comment on above: Performed By: #### C BC #### [facility] [address] [place] [address] Dr. Brea Causey IG # 0.07 10e3/ul Critically high 0.00-0.03 [facility] Comment on above: Performed By: #### C BC #### [facility] [address] [address] [address] Brea Causey IG % 1.2 % Critically high 0.0-0.5 [facility] Comment on above: Performed By: #### C BC #### [facility] [address] [place] [address] Dr. Brea Causey LYMPH # 0.9 103/ul Critically low 1.2-3.8 [facility] Comment on above: Performed By: #### C BC #### [facility] [address] [place] [address] Dr. Brea Causey Lymphocytes/100 WBC (Bld) 14.5 % Critically low 20.5-60.0 [facility] Comment on above: Performed By: #### C BC #### [facility] [address] [place] [address] Dr. Brea Causey MANUAL DIFF REQ NO Normal [facility] Comment on above: Performed By: #### C BC #### [facility] [address] [place] [address] Dr. Brea Causey MCH (RBC) [Entitic mass] 28.8 pg Normal 25.9-34.0 [facility] Comment on above: Performed By: #### C BC #### [facility] [address] [place] [address] Dr. Brea Causey MCHC (RBC) [Mass/Vol] 33.2 g/dL Normal 29.9-35.2 [facility] Comment on above: Performed By: #### C BC #### [facility] [address] [place] [address] Dr. Brea Causey MCV (RBC) [Entitic vol] 86.9 fL Normal 80.0-94.0 [facility] Comment on above: Performed By: #### C BC #### [facility] [address] [place] [address] Dr. Brea Causey MONO # 0.6 103/ul Normal 0.3-0.8 [facility] Comment on above: Performed By: #### C BC #### [facility] [address] [place] [address] Dr. Brea Causey Monocytes/100 WBC (Bld) 10.3 % Normal 1.7-12.0 [facility] Comment on above: Performed By: #### C BC #### [facility] [address] [address] [address] Brea Causey NEUT # 4.2 103/ul Normal 1.4-6.5 [facility] Comment on above: Performed By: #### C BC #### [facility] [address] [address] [address] Brea Causey Neutrophils/100 WBC (Bld) 70.9 % Normal 43.0-75.0 [facility] Comment on above: Performed By: #### C BC #### [facility] [address] [address] [address] Brea Causey Platelet mean volume (Bld) [Entitic vol] 9.1 fL Critically low 9.5-13.5 [facility] Comment on above: Performed By: #### C BC #### [facility] [address] [place] [address] Dr. Brea Causey PLT 248 103/ul Normal 150-450 [facility] Comment on above: Performed By: #### C BC #### [facility] [address] [address] [address] Brea Causey RBC 4.20 106/ul Critically low 4.70-6.10 [facility] Comment on above: Performed By: #### C BC #### [facility] [address] [place] [address] Dr. Brea Causey WBC 5.9 103/ul Normal 4.0-11.0 [facility] Comment on above: Performed By: #### C BC #### [facility] [address] [place] [address] Dr. Brea Causey LIPID PROFILEon 08-01-2022 CHOL-HDL RATIO NORM SEE BELOW Normal [facility] Comment on above: Result Comment: 3.3 - 4.4 LOW RISK 4.4 - 7.1 AVERAGE RISK 7.1 - 11.0 MODERATE RISK >11.0 HIGH RISK Performed By: #### U CLINT, CMP, LIPID, DBIL, PHOS, MG #### [facility] [address] [address] [address] Brea Causey Cholesterol [Mass/Vol] 95 mg/dL Normal <=200 [facility] Comment on above: Performed By: #### U CLINT, CMP, LIPID, DBIL, PHOS, MG #### [facility] [address] [address] [address] Brea Causey Cholesterol in HDL [Mass/Vol] 49 mg/dL Normal 40-60 [facility] Comment on above: Performed By: #### U CLINT, CMP, LIPID, DBIL, PHOS, MG #### [facility] [address] [address] [address] Brea Causey Cholesterol in LDL [Mass/Vol] 35.4 mg/dL Normal [facility] Comment on above: Performed By: #### U CLINT, CMP, LIPID, DBIL, PHOS, MG #### [facility] [address] [place] [address] Dr. Brea Causey Cholesterol.total/Cho lesterol in HDL [Mass ratio] 1.9 {ratio} Normal [facility] Comment on above: Performed By: #### U CLINT, CMP, LIPID, DBIL, PHOS, MG #### [facility] [address] [address] [address] Brea Causey HDL NORMAL > or = 60 mg/dl - LO W CARDIOVASCULAR RISK <40 mg/dl - HIGH CARDIOVASCULAR RISK Normal [facility] Comment on above: Performed By: #### U CLINT, CMP, LIPID, DBIL, PHOS, MG #### [facility] [address] [address] [address] Brea Causey LDL CALC NORMAL SEE BELOW Normal [facility] Comment on above: Result Comment: <100 mg/dl OPTIMAL 100 - 129 mg/dl NEAR OR ABOVE OPTIMAL 130 - 159 mg/dl BORDERLINE HIGH 160 - 189 mg/dl HIGH >190 mg/dl VERY HIGH Performed By: #### U CLINT, CMP, LIPID, DBIL, PHOS, MG #### [facility] [address] [address] [address] Brea Causey Triglyceride [Mass/Vol] 53 mg/dL Normal <=150 [facility] Comment on above: Performed By: #### U CLINT, CMP, LIPID, DBIL, PHOS, MG #### [facility] [address] [address] [address] Brea Causey VLDL CALC 10.6 mg/dL Normal [facility] Comment on above: Performed By: #### U CLINT, CMP, LIPID, DBIL, PHOS, MG #### [facility] [address] [address] [address] Brea Causey MAGNESIUMon 08-01-2022 Magnesium [Mass/Vol] 1.5 mg/dL Critically low 1.8-2.4 [facility] Comment on above: Performed By: #### U CLINT, CMP, LIPID, DBIL, PHOS, MG #### [facility] [address] [address] [address] Brea Causey PHOSPHORUSon 08-01-2022 Phosphate [Mass/Vol] 3.8 mg/dL Normal 2.6-4.7 [facility] Comment on above: Performed By: #### U CLINT, CMP, LIPID, DBIL, PHOS, MG #### [facility] [address] [place] [address] Dr. Brea Causey PROF 14(COMP METB)on 023 Albumin [Mass/Vol] 4.1 g/dL Normal 3.4-5.0 [facility] Comment on above: Performed By: #### U CLINT, CMP, LIPID, DBIL, PHOS, MG #### [facility] [address] [address] [address] Brea Causey Albumin/Globulin [Mass ratio] 1.3 {ratio} Normal [facility] Comment on above: Performed By: #### U CLINT, CMP, LIPID, DBIL, PHOS, MG #### [facility] [address] [address] [address] Brea Causey ALP [Catalytic activity/Vol] 197 U/L Critically high 46-116 [facility] Comment on above: Performed By: #### U CLINT, CMP, LIPID, DBIL, PHOS, MG #### [facility] [address] [address] [address] Brea Causey ALT [Catalytic activity/Vol] 26 U/L Normal 16-63 [facility] Comment on above: Performed By: #### U CLINT, CMP, LIPID, DBIL, PHOS, MG #### [facility] [address] [place] [address] Dr. Brea Causey Anion gap [Moles/Vol] 12.6 mmol/L Normal [facility] Comment on above: Performed By: #### U CLINT, CMP, LIPID, DBIL, PHOS, MG #### [facility] [address] [address] [address] Brea Causey AST [Catalytic activity/Vol] 20 U/L Normal 15-37 [facility] Comment on above: Performed By: #### U CLINT, CMP, LIPID, DBIL, PHOS, MG #### [facility] [address] [place] [address] Dr. Brea Causey Bilirubin [Mass/Vol] 0.4 mg/dL Normal 0.2-1.0 [facility] Comment on above: Performed By: #### U CLINT, CMP, LIPID, DBIL, PHOS, MG #### [facility] [address] [place] [address] Dr. Brea Causey Calcium [Mass/Vol] 7.9 mg/dL Critically low 8.5-10.1 [facility] Comment on above: Performed By: #### U CLINT, CMP, LIPID, DBIL, PHOS, MG #### [facility] [address] [place] [address] Dr. Brea Causey Chloride [Moles/Vol] 97 mmol/L Critically low 98-107 [facility] Comment on above: Performed By: #### U CLINT, CMP, LIPID, DBIL, PHOS, MG #### [facility] [address] [place] [address] Dr. Brea Causey CO2 [Moles/Vol] 28.9 mmol/L Normal 21.0-32.0 [facility] Comment on above: Performed By: #### U CLINT, CMP, LIPID, DBIL, PHOS, MG #### [facility] [address] [place] [address] Dr. Brea Causey Creatinine [Mass/Vol] 0.98 mg/dL Normal 0.70-1.30 [facility] Comment on above: Performed By: #### U CLINT, CMP, LIPID, DBIL, PHOS, MG #### [facility] [address] [address] [address] Brea Causey EGFR-AF LUXEMBOURGER >60 Normal >=60 [facility] Comment on above: Performed By: #### U CLINT, CMP, LIPID, DBIL, PHOS, MG #### [facility] [address] [place] [address] Dr. Brea Causey EGFR-NON AF LUXEMBOURGER >60 Normal >=60 [facility] Comment on above: Performed By: #### U CLINT, CMP, LIPID, DBIL, PHOS, MG #### [facility] [address] [place] [address] Dr. Brea Causey Globulin (S) [Mass/Vol] 3.2 g/dL Normal [facility] Comment on above: Performed By: #### U CLINT, CMP, LIPID, DBIL, PHOS, MG #### [facility] [address] [place] [address] Dr. Brea Causey Glucose [Mass/Vol] 174 mg/dL Critically high 74-106 [facility] Comment on above: Performed By: #### U CLINT, CMP, LIPID, DBIL, PHOS, MG #### [facility] [address] [place] [address] Dr. Brea Causey Potassium [Moles/Vol] 4.5 mmol/L Normal 3.5-5.1 [facility] Comment on above: Performed By: #### U CLINT, CMP, LIPID, DBIL, PHOS, MG #### [facility] [address] [address] [address] Brea Causey Protein [Mass/Vol] 7.3 g/dL Normal 6.4-8.2 [facility] Comment on above: Performed By: #### U CLINT, CMP, LIPID, DBIL, PHOS, MG #### [facility] [address] [place] [address] Dr. Brea Causey Sodium [Moles/Vol] 134 mmol/L Critically low 136-145 [facility] Comment on above: Performed By: #### U CLINT, CMP, LIPID, DBIL, PHOS, MG #### [facility] [address] [place] [address] Dr. Brea Causey Urea nitrogen [Mass/Vol] 8.0 mg/dL Normal 7.0-18.0 [facility] Comment on above: Performed By: #### U CLINT, CMP, LIPID, DBIL, PHOS, MG #### [facility] [address] [place] [address] Dr. Brea Causey Urea nitrogen/Creatinine [Mass ratio] 8.2 mg/mg Normal [facility] Comment on above: Performed By: #### U CLINT, CMP, LIPID, DBIL, PHOS, MG #### [facility] [address] [place] [address] Dr. Brea Causey URIC ACID SERUMon 08-01-2022 Urate [Mass/Vol] 5.8 mg/dL Normal 3.5-7.2 [facility] Comment on above: Performed By: #### U CLINT, CMP, LIPID, DBIL, PHOS, MG #### [facility] [address] [place] [address] Dr. Brea Causey FK506 (TACROLIMUS) WHOLE BLO ODon 07-07-2022 Tacrolimus (FK506), Blood 3.6 ng/mL Normal 2.0-20.0 [facility] Comment on above: Result Comment: Trou gh (immediately following transplant) 15.0 . Trough (steady state, 2 weeks or more after transplant): 3.0 - 8.0 . Performed by LC-MS/MS technology. Performed By: #### C BC #### [facility] [address] [place] [address] Dr. Brea Causey BILIRUBIN CONJUGATED (DIRECT )on 07-04-2022 BILI, CONJUGATED 0.1 mg/dL Normal 0.0-0.2 [facility] Comment on above: Performed By: #### B KVIRUS #### [facility] [address] [place] [address] Dr. Brea Causey CBC AUTO DIFFon 07-04-2022 BASO # 0.0 103/ul Normal 0.0-0.1 [facility] Comment on above: Performed By: #### U CLINT, CMP, LIPID, DBIL, PHOS, MG #### [facility] [address] [place] [address] Dr. Brea Causey Basophils/100 WBC (Bld) 0.5 % Normal 0.2-2.0 [facility] Comment on above: Performed By: #### U CLINT, CMP, LIPID, DBIL, PHOS, MG #### [facility] [address] [place] [address] Dr. Brea Causey EO # 0.2 103/ul Normal 0.0-0.7 [facility] Comment on above: Performed By: #### U CLINT, CMP, LIPID, DBIL, PHOS, MG #### [facility] [address] [place] [address] Dr. Brea Causey Eosinophils/100 WBC (Bld) 2.6 % Normal 0.9-7.0 [facility] Comment on above: Performed By: #### U CLINT, CMP, LIPID, DBIL, PHOS, MG #### [facility] [address] [place] [address] Dr. Brea Causey Erythrocyte distribution width (RBC) [Ratio] 13.3 % Normal 11.0-15.0 [facility] Comment on above: Performed By: #### U CLINT, CMP, LIPID, DBIL, PHOS, MG #### [facility] [address] [place] [address] Dr. Brea Causey Hematocrit (Bld) [Volume fraction] 37.2 % Critically low 42.0-54.0 [facility] Comment on above: Performed By: #### U CLINT, CMP, LIPID, DBIL, PHOS, MG #### [facility] [address] [place] [address] Dr. Brea Causey Hemoglobin (Bld) [Mass/Vol] 12.4 g/dL Critically low 14.0-18.0 [facility] Comment on above: Performed By: #### U CLINT, CMP, LIPID, DBIL, PHOS, MG #### [facility] [address] [address] [address] Brea Causey IG # 0.09 10e3/ul Critically high 0.00-0.03 [facility] Comment on above: Performed By: #### U CLINT, CMP, LIPID, DBIL, PHOS, MG #### [facility] [address] [place] [address] Dr. Brea Causey IG % 1.4 % Critically high 0.0-0.5 [facility] Comment on above: Performed By: #### U CLINT, CMP, LIPID, DBIL, PHOS, MG #### [facility] [address] [place] [address] Dr. Brea Causey LYMPH # 1.0 103/ul Critically low 1.2-3.8 [facility] Comment on above: Performed By: #### U CLINT, CMP, LIPID, DBIL, PHOS, MG #### [facility] [address] [place] [address] Dr. Brea Causey Lymphocytes/100 WBC (Bld) 15.2 % Critically low 20.5-60.0 [facility] Comment on above: Performed By: #### U CLINT, CMP, LIPID, DBIL, PHOS, MG #### [facility] [address] [place] [address] Dr. Brea Causey MANUAL DIFF REQ NO Normal [facility] Comment on above: Performed By: #### U CLINT, CMP, LIPID, DBIL, PHOS, MG #### [facility] [address] [place] [address] Dr. Brea Causey MCH (RBC) [Entitic mass] 28.8 pg Normal 25.9-34.0 [facility] Comment on above: Performed By: #### U CLINT, CMP, LIPID, DBIL, PHOS, MG #### [facility] [address] [place] [address] Dr. Brea Causey MCHC (RBC) [Mass/Vol] 33.3 g/dL Normal 29.9-35.2 [facility] Comment on above: Performed By: #### U CLINT, CMP, LIPID, DBIL, PHOS, MG #### [facility] [address] [place] [address] Dr. Brea Causey MCV (RBC) [Entitic vol] 86.5 fL Normal 80.0-94.0 [facility] Comment on above: Performed By: #### U CLINT, CMP, LIPID, DBIL, PHOS, MG #### [facility] [address] [place] [address] Dr. Brea Causey MONO # 0.7 103/ul Normal 0.3-0.8 [facility] Comment on above: Performed By: #### U CLINT, CMP, LIPID, DBIL, PHOS, MG #### [facility] [address] [place] [address] Dr. Brea Causey Monocytes/100 WBC (Bld) 10.0 % Normal 1.7-12.0 [facility] Comment on above: Performed By: #### U LCINT, CMP, LIPID, DBIL, PHOS, MG #### [facility] [address] [place] [address] Dr. Brea Causey NEUT # 4.6 103/ul Normal 1.4-6.5 [facility] Comment on above: Performed By: #### U CLINT, CMP, LIPID, DBIL, PHOS, MG #### [facility] [address] [place] [address] Dr. Brea Causey Neutrophils/100 WBC (Bld) 70.3 % Normal 43.0-75.0 [facility] Comment on above: Performed By: #### U CLINT, CMP, LIPID, DBIL, PHOS, MG #### [facility] [address] [place] [address] Dr. Brea Causey Platelet mean volume (Bld) [Entitic vol] 8.8 fL Critically low 9.5-13.5 [facility] Comment on above: Performed By: #### U CLINT, CMP, LIPID, DBIL, PHOS, MG #### [facility] [address] [place] [address] Dr. Brea Causey PLT 240 103/ul Normal 150-450 [facility] Comment on above: Performed By: #### U CLINT, CMP, LIPID, DBIL, PHOS, MG #### [facility] [address] [address] [address] Brea Causey RBC 4.30 106/ul Critically low 4.70-6.10 [facility] Comment on above: Performed By: #### U CLINT, CMP, LIPID, DBIL, PHOS, MG #### [facility] [address] [address] [address] Brea Causey WBC 6.5 103/ul Normal 4.0-11.0 [facility] Comment on above: Performed By: #### U CLINT, CMP, LIPID, DBIL, PHOS, MG #### [facility] [address] [place] [address] Dr. Brea Causey LIPID PROFILEon 07-04-2022 CHOL-HDL RATIO NORM SEE BELOW Normal [facility] Comment on above: Result Comment: 3.3 - 4.4 LOW RISK 4.4 - 7.1 AVERAGE RISK 7.1 - 11.0 MODERATE RISK >11.0 HIGH RISK Performed By: #### U CLINT, CMP, LIPID, DBIL, PHOS, MG #### [facility] [address] [place] [address] Dr. Brea Causey Cholesterol [Mass/Vol] 86 mg/dL Normal <=200 [facility] Comment on above: Performed By: #### U CLINT, CMP, LIPID, DBIL, PHOS, MG #### [facility] [address] [address] [address] Brea Causey Cholesterol in HDL [Mass/Vol] 44 mg/dL Normal 40-60 [facility] Comment on above: Performed By: #### U CLINT, CMP, LIPID, DBIL, PHOS, MG #### [facility] [address] [place] [address] Dr. Brea Causey Cholesterol in LDL [Mass/Vol] 28.0 mg/dL Normal [facility] Comment on above: Performed By: #### U CLINT, CMP, LIPID, DBIL, PHOS, MG #### [facility] [address] [address] [address] Brea Causey Cholesterol.total/Cho lesterol in HDL [Mass ratio] 2.0 {ratio} Normal [facility] Comment on above: Performed By: #### U CLINT, CMP, LIPID, DBIL, PHOS, MG #### [facility] [address] [address] [address] Brea Causey HDL NORMAL > or = 60 mg/dl - LO W CARDIOVASCULAR RISK <40 mg/dl - HIGH CARDIOVASCULAR RISK Normal [facility] Comment on above: Performed By: #### U CLINT, CMP, LIPID, DBIL, PHOS, MG #### [facility] [address] [address] [address] Brea Causey LDL CALC NORMAL SEE BELOW Normal [facility] Comment on above: Result Comment: <100 mg/dl OPTIMAL 100 - 129 mg/dl NEAR OR ABOVE OPTIMAL 130 - 159 mg/dl BORDERLINE HIGH 160 - 189 mg/dl HIGH >190 mg/dl VERY HIGH Performed By: #### U CLINT, CMP, LIPID, DBIL, PHOS, MG #### [facility] [address] [address] [address] Brea Causey Triglyceride [Mass/Vol] 70 mg/dL Normal <=150 [facility] Comment on above: Performed By: #### U CLINT, CMP, LIPID, DBIL, PHOS, MG #### [facility] [address] [address] [address] Brea Causey VLDL CALC 14.0 mg/dL Normal [facility] Comment on above: Performed By: #### U CLINT, CMP, LIPID, DBIL, PHOS, MG #### [facility] [address] [address] [address] Brea Causey MAGNESIUMon 07-04-2022 Magnesium [Mass/Vol] 1.4 mg/dL Critically low 1.8-2.4 [facility] Comment on above: Performed By: #### U CLINT, CMP, LIPID, DBIL, PHOS, MG #### [facility] [address] [address] [address] Brea Causey PHOSPHORUSon 07-04-2022 Phosphate [Mass/Vol] 4.1 mg/dL Normal 2.6-4.7 [facility] Comment on above: Performed By: #### U CLINT, CMP, LIPID, DBIL, PHOS, MG #### [facility] [address] [place] [address] Dr. Brea Causey PROF 14(COMP METB)on 023 Albumin [Mass/Vol] 4.0 g/dL Normal 3.4-5.0 [facility] Comment on above: Performed By: #### B KVIRUS #### [facility] [address] [place] [address] Dr. Brea Causey Albumin/Globulin [Mass ratio] 1.3 {ratio} Normal [facility] Comment on above: Performed By: #### B KVIRUS #### [facility] [address] [place] [address] Dr. Brea Causey ALP [Catalytic activity/Vol] 212 U/L Critically high 46-116 [facility] Comment on above: Performed By: #### B KVIRUS #### [facility] [address] [place] [address] Dr. Brea Causey ALT [Catalytic activity/Vol] 31 U/L Normal 16-63 [facility] Comment on above: Performed By: #### B KVIRUS #### [facility] [address] [place] [address] Dr. Brea Causey Anion gap [Moles/Vol] 11.9 mmol/L Normal [facility] Comment on above: Performed By: #### B KVIRUS #### [facility] [address] [place] [address] Dr. Brea Causey AST [Catalytic activity/Vol] 21 U/L Normal 15-37 [facility] Comment on above: Performed By: #### B KVIRUS #### [facility] [address] [place] [address] Dr. Brea Causey Bilirubin [Mass/Vol] 0.3 mg/dL Normal 0.2-1.0 [facility] Comment on above: Performed By: #### B KVIRUS #### [facility] [address] [place] [address] Dr. Brea Causey Calcium [Mass/Vol] 8.1 mg/dL Critically low 8.5-10.1 [facility] Comment on above: Performed By: #### B KVIRUS #### [facility] [address] [place] [address] Dr. Brea Causey Chloride [Moles/Vol] 97 mmol/L Critically low 98-107 [facility] Comment on above: Performed By: #### B KVIRUS #### [facility] [address] [place] [address] Dr. Brea Causey CO2 [Moles/Vol] 26.8 mmol/L Normal 21.0-32.0 [facility] Comment on above: Performed By: #### B KVIRUS #### [facility] [address] [place] [address] Dr. Brea Causey Creatinine [Mass/Vol] 0.99 mg/dL Normal 0.70-1.30 [facility] Comment on above: Performed By: #### B KVIRUS #### [facility] [address] [place] [address] Dr. Brea Causey EGFR-AF LUXEMBOURGER >60 Normal >=60 [facility] Comment on above: Performed By: #### B KVIRUS #### [facility] [address] [place] [address] Dr. Brea Causey EGFR-NON AF LUXEMBOURGER >60 Normal >=60 [facility] Comment on above: Performed By: #### B KVIRUS #### [facility] [address] [place] [address] Dr. Brea Causey Globulin (S) [Mass/Vol] 3.2 g/dL Normal [facility] Comment on above: Performed By: #### B KVIRUS #### [facility] [address] [place] [address] Dr. Brea Causey Glucose [Mass/Vol] 169 mg/dL Critically high 74-106 [facility] Comment on above: Performed By: #### B KVIRUS #### [facility] [address] [place] [address] Dr. Brea Causey Potassium [Moles/Vol] 4.7 mmol/L Normal 3.5-5.1 [facility] Comment on above: Performed By: #### B KVIRUS #### [facility] [address] [place] [address] Dr. Brea Causey Protein [Mass/Vol] 7.2 g/dL Normal 6.4-8.2 [facility] Comment on above: Performed By: #### B KVIRUS #### [facility] [address] [place] [address] Dr. Brea Causey Sodium [Moles/Vol] 131 mmol/L Critically low 136-145 [facility] Comment on above: Performed By: #### B KVIRUS #### [facility] [address] [place] [address] Dr. Brea Causey Urea nitrogen [Mass/Vol] 9.0 mg/dL Normal 7.0-18.0 [facility] Comment on above: Performed By: #### B KVIRUS #### [facility] [address] [place] [address] Dr. Brea Causey Urea nitrogen/Creatinine [Mass ratio] 9.1 mg/mg Normal [facility] Comment on above: Performed By: #### B KVIRUS #### [facility] [address] [place] [address] Dr. Brea Causey URIC ACID SERUMon 07-04-2022 Urate [Mass/Vol] 6.1 mg/dL Normal 3.5-7.2 [facility] Comment on above: Performed By: #### U CLINT, CMP, LIPID, DBIL, PHOS, MG #### [facility] [address] [place] [address] Dr. Brea Causey TESTOSTERONE, FREE,DIRECT, T OTALon 05-28-2022 Free Testosterone(Direct) 5.9 pg/mL Critically low 6.6-18.1 [facility] Comment on above: Result Comment: Perf ormed at: BN Performed By: #### U CLINT, CMP, LIPID, DBIL, PHOS, MG #### [facility] [address] [place] [address] Dr. Brea Causey Testosterone [Mass/Vol] 513 ng/dL Normal 264-916 [facility] Comment on above: Result Comment: Adul t male reference interval is based on a population of healthy nonobese males (BMI <30) between 19 and 39 years old. daniel Harris.al. JCEM 2017,102;3283-2165. PMID: [id number]. Performed at: CB Performed By: #### U CLINT, CMP, LIPID, DBIL, PHOS, MG #### [facility] [address] [address] [address] Brea Causey FK506 (TACROLIMUS) WHOLE BLO ODon 05-26-2022 Tacrolimus (FK506), Blood 3.9 ng/mL Normal 2.0-20.0 [facility] Comment on above: Result Comment: Trou gh (immediately following transplant) 15.0 . Trough (steady state, 2 weeks or more after transplant): 3.0 - 8.0 . Performed by LC-MS/MS technology. Performed By: #### B KVIRUS #### [facility] [address] [address] [address] Brea Causey BK VIRUS PCR QUANTon 023 BKV DNA QUANT PCR PLASMA Negative Normal Negative [facility] Comment on above: Result Comment: No B K DNA detected. . The linear range of the assay is 22 - 100,000,000 IU/mL. Performed By: #### U CLINT, CMP, LIPID, DBIL, PHOS, MG #### [facility] [address] [address] [address] Brea Causey Log10 BKV DNA Plasma Normal [facility] Comment on above: Performed By: #### U CLINT, CMP, LIPID, DBIL, PHOS, MG #### [facility] [address] [address] [address] Brea Causey BILIRUBIN CONJUGATED (DIRECT )on 05-23-2022 BILI, CONJUGATED 0.2 mg/dL Normal 0.0-0.2 [facility] Comment on above: Performed By: #### C BC #### [facility] [address] [address] [address] Brea Causey CBC AUTO DIFFon 05-23-2022 BASO # 0.0 103/ul Normal 0.0-0.1 [facility] Comment on above: Performed By: #### B KVIRUS #### [facility] [address] [place] [address] Dr. Brea Causey Basophils/100 WBC (Bld) 0.6 % Normal 0.2-2.0 [facility] Comment on above: Performed By: #### B KVIRUS #### [facility] [address] [place] [address] Dr. Brea Causey EO # 0.1 103/ul Normal 0.0-0.7 [facility] Comment on above: Performed By: #### B KVIRUS #### [facility] [address] [place] [address] Dr. Brea Causey Eosinophils/100 WBC (Bld) 1.7 % Normal 0.9-7.0 [facility] Comment on above: Performed By: #### B KVIRUS #### [facility] [address] [place] [address] Dr. Brea Causey Erythrocyte distribution width (RBC) [Ratio] 13.4 % Normal 11.0-15.0 [facility] Comment on above: Performed By: #### B KVIRUS #### [facility] [address] [place] [address] Dr. Brea Causey Hematocrit (Bld) [Volume fraction] 38.8 % Critically low 42.0-54.0 [facility] Comment on above: Performed By: #### B KVIRUS #### [facility] [address] [place] [address] Dr. Brea Causey Hemoglobin (Bld) [Mass/Vol] 12.4 g/dL Critically low 14.0-18.0 [facility] Comment on above: Performed By: #### B KVIRUS #### [facility] [address] [place] [address] Dr. Brea Causey IG # 0.07 10e3/ul Critically high 0.00-0.03 [facility] Comment on above: Performed By: #### B KVIRUS #### [facility] [address] [place] [address] Dr. Brea Causey IG % 1.1 % Critically high 0.0-0.5 [facility] Comment on above: Performed By: #### B KVIRUS #### [facility] [address] [place] [address] Dr. Brea Causey LYMPH # 0.9 103/ul Critically low 1.2-3.8 [facility] Comment on above: Performed By: #### B KVIRUS #### [facility] [address] [address] [address] Brea Causey Lymphocytes/100 WBC (Bld) 14.1 % Critically low 20.5-60.0 [facility] Comment on above: Performed By: #### B KVIRUS #### [facility] [address] [place] [address] Dr. Brea Causey MANUAL DIFF REQ NO Normal [facility] Comment on above: Performed By: #### B KVIRUS #### [facility] [address] [place] [address] Dr. Brea Causey MCH (RBC) [Entitic mass] 29.3 pg Normal 25.9-34.0 [facility] Comment on above: Performed By: #### B KVIRUS #### [facility] [address] [place] [address] Dr. Brea Causey MCHC (RBC) [Mass/Vol] 32.0 g/dL Normal 29.9-35.2 [facility] Comment on above: Performed By: #### B KVIRUS #### [facility] [address] [place] [address] Dr. Brea Causey MCV (RBC) [Entitic vol] 91.7 fL Normal 80.0-94.0 [facility] Comment on above: Performed By: #### B KVIRUS #### [facility] [address] [place] [address] Dr. Brea Causey MONO # 0.7 103/ul Normal 0.3-0.8 [facility] Comment on above: Performed By: #### B KVIRUS #### [facility] [address] [place] [address] Dr. Brea Causey Monocytes/100 WBC (Bld) 10.0 % Normal 1.7-12.0 [facility] Comment on above: Performed By: #### B KVIRUS #### [facility] [address] [place] [address] Dr. Brea Causey NEUT # 4.7 103/ul Normal 1.4-6.5 [facility] Comment on above: Performed By: #### B KVIRUS #### [facility] [address] [place] [address] Dr. Brea Causey Neutrophils/100 WBC (Bld) 72.5 % Normal 43.0-75.0 [facility] Comment on above: Performed By: #### B KVIRUS #### [facility] [address] [place] [address] Dr. Brea Causey Platelet mean volume (Bld) [Entitic vol] 9.4 fL Critically low 9.5-13.5 [facility] Comment on above: Performed By: #### B KVIRUS #### [facility] [address] [place] [address] Dr. Brea Causey PLT 256 103/ul Normal 150-450 [facility] Comment on above: Performed By: #### B KVIRUS #### [facility] [address] [place] [address] Dr. Brea Causey RBC 4.23 106/ul Critically low 4.70-6.10 [facility] Comment on above: Performed By: #### B KVIRUS #### [facility] [address] [place] [address] Dr. Brea Causey WBC 6.5 103/ul Normal 4.0-11.0 [facility] Comment on above: Performed By: #### B KVIRUS #### [facility] [address] [place] [address] Dr. Brea Causey GLYCOHEMOGLOBIN A1Con 2022 ADA RECOMMENDATION SEE BELOW Normal [facility] Comment on above: Result Comment: ADA RECOMMENDED LIMIT 4.0 - 6.0 ADA THERAPEUTIC TARGET < 7.0 ACTION SUGGESTED > 7.0 Performed By: #### U CLINT, CMP, LIPID, DBIL, PHOS, MG #### [facility] [address] [address] [address] Brea Causey Glucose [Mass/Vol] 160 mg/dL Normal [facility] Comment on above: Performed By: #### U CLINT, CMP, LIPID, DBIL, PHOS, MG #### [facility] [address] [address] [address] Brea Causey HbA1c (Bld) [Mass fraction] 7.2 % Critically high 4.5-6.2 [facility] Comment on above: Performed By: #### U CLINT, CMP, LIPID, DBIL, PHOS, MG #### [facility] [address] [address] [address] Brea Causey LIPID PROFILEon 05-23-2022 CHOL-HDL RATIO NORM SEE BELOW Normal [facility] Comment on above: Result Comment: 3.3 - 4.4 LOW RISK 4.4 - 7.1 AVERAGE RISK 7.1 - 11.0 MODERATE RISK >11.0 HIGH RISK Performed By: #### C BC #### [facility] [address] [address] [address] Brea Causey Cholesterol [Mass/Vol] 87 mg/dL Normal <=200 [facility] Comment on above: Performed By: #### C BC #### [facility] [address] [address] [address] Brea Causey Cholesterol in HDL [Mass/Vol] 54 mg/dL Normal 40-60 [facility] Comment on above: Performed By: #### C BC #### [facility] [address] [address] [address] Brea Causey Cholesterol in LDL [Mass/Vol] 24.6 mg/dL Normal [facility] Comment on above: Performed By: #### C BC #### [facility] [address] [address] [address] Brea Causey Cholesterol.total/Cho lesterol in HDL [Mass ratio] 1.6 {ratio} Normal [facility] Comment on above: Performed By: #### C BC #### [facility] [address] [address] [address] Brea Causey HDL NORMAL > or = 60 mg/dl - LO W CARDIOVASCULAR RISK <40 mg/dl - HIGH CARDIOVASCULAR RISK Normal [facility] Comment on above: Performed By: #### C BC #### [facility] [address] [place] [address] Dr. Brea Causey LDL CALC NORMAL SEE BELOW Normal [facility] Comment on above: Result Comment: <100 mg/dl OPTIMAL 100 - 129 mg/dl NEAR OR ABOVE OPTIMAL 130 - 159 mg/dl BORDERLINE HIGH 160 - 189 mg/dl HIGH >190 mg/dl VERY HIGH Performed By: #### C BC #### [facility] [address] [place] [address] Dr. Brea Causey Triglyceride [Mass/Vol] 42 mg/dL Normal <=150 [facility] Comment on above: Performed By: #### C BC #### [facility] [address] [place] [address] Dr. Brea Causey VLDL CALC 8.4 mg/dL Normal [facility] Comment on above: Performed By: #### C BC #### [facility] [address] [place] [address] Dr. Brea Causey MAGNESIUMon 05-23-2022 Magnesium [Mass/Vol] 1.4 mg/dL Critically low 1.8-2.4 [facility] Comment on above: Performed By: #### C BC #### [facility] [address] [place] [address] Dr. Brea Causey PHOSPHORUSon 05-23-2022 Phosphate [Mass/Vol] 3.6 mg/dL Normal 2.6-4.7 [facility] Comment on above: Performed By: #### C BC #### [facility] [address] [place] [address] Dr. Brea Causey PROF 14(COMP METB)on 023 Albumin [Mass/Vol] 3.9 g/dL Normal 3.4-5.0 [facility] Comment on above: Performed By: #### C BC #### [facility] [address] [place] [address] Dr. Brea Causey Albumin/Globulin [Mass ratio] 1.2 {ratio} Normal [facility] Comment on above: Performed By: #### C BC #### [facility] [address] [address] [address] Brea Causey ALP [Catalytic activity/Vol] 190 U/L Critically high 46-116 [facility] Comment on above: Performed By: #### C BC #### [facility] [address] [address] [address] Brea Causey ALT [Catalytic activity/Vol] 26 U/L Normal 16-63 [facility] Comment on above: Performed By: #### C BC #### [facility] [address] [address] [address] Brea Causey Anion gap [Moles/Vol] 13.1 mmol/L Normal [facility] Comment on above: Performed By: #### C BC #### [facility] [address] [place] [address] Dr. Brea Causey AST [Catalytic activity/Vol] 18 U/L Normal 15-37 [facility] Comment on above: Performed By: #### C BC #### [facility] [address] [place] [address] Dr. Brea Causey Bilirubin [Mass/Vol] 0.4 mg/dL Normal 0.2-1.0 [facility] Comment on above: Performed By: #### C BC #### [facility] [address] [place] [address] Dr. Brea Causey Calcium [Mass/Vol] 7.8 mg/dL Critically low 8.5-10.1 [facility] Comment on above: Performed By: #### C BC #### [facility] [address] [address] [address] Brea Causey Chloride [Moles/Vol] 95 mmol/L Critically low 98-107 [facility] Comment on above: Performed By: #### C BC #### [facility] [address] [place] [address] Dr. Brea Causey CO2 [Moles/Vol] 28.8 mmol/L Normal 21.0-32.0 [facility] Comment on above: Performed By: #### C BC #### [facility] [address] [address] [address] Brea Causey Creatinine [Mass/Vol] 1.03 mg/dL Normal 0.70-1.30 [facility] Comment on above: Performed By: #### C BC #### [facility] [address] [address] [address] Brea Causey EGFR-AF LUXEMBOURGER >60 Normal >=60 [facility] Comment on above: Performed By: #### C BC #### [facility] [address] [address] [address] Brea Causey EGFR-NON AF LUXEMBOURGER >60 Normal >=60 [facility] Comment on above: Performed By: #### C BC #### [facility] [address] [place] [address] Dr. Brea Causey Globulin (S) [Mass/Vol] 3.2 g/dL Normal [facility] Comment on above: Performed By: #### C BC #### [facility] [address] [place] [address] Dr. Brea Causey Glucose [Mass/Vol] 155 mg/dL Critically high 74-106 [facility] Comment on above: Performed By: #### C BC #### [facility] [address] [place] [address] Dr. Brea Causey Potassium [Moles/Vol] 4.9 mmol/L Normal 3.5-5.1 [facility] Comment on above: Performed By: #### C BC #### [facility] [address] [place] [address] Dr. Brea Causey Protein [Mass/Vol] 7.1 g/dL Normal 6.4-8.2 [facility] Comment on above: Performed By: #### C BC #### [facility] [address] [address] [address] Brea Causey Sodium [Moles/Vol] 132 mmol/L Critically low 136-145 [facility] Comment on above: Performed By: #### C BC #### [facility] [address] [id number] [address] Brea Causey Urea nitrogen [Mass/Vol] 8.0 mg/dL Normal 7.0-18.0 [facility] Comment on above: Performed By: #### C BC #### [facility] [address] [id number] Brea Causey Urea nitrogen/Creatinine [Mass ratio] 7.8 mg/mg Normal [facility] Comment on above: Performed By: #### C BC #### [facility] [address] [address] [address] Brea Causey URIC ACID SERUMon 05-23-2022 Urate [Mass/Vol] 5.6 mg/dL Normal 3.5-7.2 [facility] Comment on above: Performed By: #### C BC #### [facility] [address] [address] [address] Brea Causey TESTOSTERONE, FREE,DIRECT, T OTALon 05-03-2022 Free Testosterone(Direct) 7.4 pg/mL Normal 6.6-18.1 [facility] Comment on above: Result Comment: Perf ormed at: BN Performed By: #### U CLINT, CMP, LIPID, DBIL, PHOS, MG #### [facility] [address] [place] [address] Dr. Brea Causey Testosterone [Mass/Vol] 494 ng/dL Normal 264-916 [facility] Comment on above: Result Comment: Adul t male reference interval is based on a population of healthy nonobese males (BMI <30) between 19 and 39 years old. Steven et.al. JCEM 2017,102;2358-5545. PMID: [id number]. Performed at: CB Performed By: #### U CLINT, CMP, LIPID, DBIL, PHOS, MG #### [facility] [address] [place], [place] [id number] Dr. Brea Causey FK506 (TACROLIMUS) WHOLE BLO ODon 05-02-2022 Tacrolimus (FK506), Blood 4.3 ng/mL Normal 2.0-20.0 [facility] Comment on above: Result Comment: Trou gh (immediately following transplant) 15.0 . Trough (steady state, 2 weeks or more after transplant): 3.0 - 8.0 . Performed by LC-MS/MS technology. Performed By: #### C BC #### [facility] [address] [place] [address] Dr. Brea Causey BILIRUBIN CONJUGATED (DIRECT )on 04-30-2022 BILI, CONJUGATED 0.1 mg/dL Normal 0.0-0.2 [facility] Comment on above: Performed By: #### U CLINT, CMP, LIPID, DBIL, PHOS, MG #### [facility] [address] [place] [address] Dr. Brea Causey CBC AUTO DIFFon 04-30-2022 BASO # 0.0 103/ul Normal 0.0-0.1 [facility] Comment on above: Performed By: #### U CLINT, CMP, LIPID, DBIL, PHOS, MG #### [facility] [address] [place] [address] Dr. Brea Causey Basophils/100 WBC (Bld) 0.5 % Normal 0.2-2.0 [facility] Comment on above: Performed By: #### U CLINT, CMP, LIPID, DBIL, PHOS, MG #### [facility] [address] [place] [address] Dr. Brea Causey EO # 0.1 103/ul Normal 0.0-0.7 [facility] Comment on above: Performed By: #### U CLINT, CMP, LIPID, DBIL, PHOS, MG #### [facility] [address] [place] [address] Dr. Brea Causey Eosinophils/100 WBC (Bld) 2.1 % Normal 0.9-7.0 [facility] Comment on above: Performed By: #### U CLINT, CMP, LIPID, DBIL, PHOS, MG #### [facility] [address] [place] [address] Dr. Brea Causey Erythrocyte distribution width (RBC) [Ratio] 13.2 % Normal 11.0-15.0 [facility] Comment on above: Performed By: #### U CLINT, CMP, LIPID, DBIL, PHOS, MG #### [facility] [address] [place] [address] Dr. Brea Causey Hematocrit (Bld) [Volume fraction] 37.0 % Critically low 42.0-54.0 [facility] Comment on above: Performed By: #### U CLINT, CMP, LIPID, DBIL, PHOS, MG #### [facility] [address] [address] [address] Brea Causey Hemoglobin (Bld) [Mass/Vol] 12.4 g/dL Critically low 14.0-18.0 [facility] Comment on above: Performed By: #### U CLINT, CMP, LIPID, DBIL, PHOS, MG #### [facility] [address] [place] [address] Dr. Brea Causey IG # 0.05 10e3/ul Critically high 0.00-0.03 [facility] Comment on above: Performed By: #### U CLINT, CMP, LIPID, DBIL, PHOS, MG #### [facility] [address] [place] [address] Dr. Brea Causey IG % 0.9 % Critically high 0.0-0.5 [facility] Comment on above: Performed By: #### U CLINT, CMP, LIPID, DBIL, PHOS, MG #### [facility] [address] [place] [address] Dr. Brea Causey LYMPH # 1.0 103/ul Critically low 1.2-3.8 [facility] Comment on above: Performed By: #### U CLINT, CMP, LIPID, DBIL, PHOS, MG #### [facility] [address] [place] [address] Dr. Brea Causey Lymphocytes/100 WBC (Bld) 16.4 % Critically low 20.5-60.0 [facility] Comment on above: Performed By: #### U CLINT, CMP, LIPID, DBIL, PHOS, MG #### [facility] [address] [place] [address] Dr. Brea Causey MANUAL DIFF REQ NO Normal [facility] Comment on above: Performed By: #### U CLINT, CMP, LIPID, DBIL, PHOS, MG #### [facility] [address] [place] [address] Dr. Brea Causey MCH (RBC) [Entitic mass] 29.0 pg Normal 25.9-34.0 [facility] Comment on above: Performed By: #### U CLINT, CMP, LIPID, DBIL, PHOS, MG #### [facility] [address] [place] [address] Dr. Brea Causey MCHC (RBC) [Mass/Vol] 33.5 g/dL Normal 29.9-35.2 [facility] Comment on above: Performed By: #### U CLINT, CMP, LIPID, DBIL, PHOS, MG #### [facility] [address] [place] [address] Dr. Brea Causey MCV (RBC) [Entitic vol] 86.7 fL Normal 80.0-94.0 [facility] Comment on above: Performed By: #### U CLINT, CMP, LIPID, DBIL, PHOS, MG #### [facility] [address] [place] [address] Dr. Brea Causey MONO # 0.7 103/ul Normal 0.3-0.8 [facility] Comment on above: Performed By: #### U CLINT, CMP, LIPID, DBIL, PHOS, MG #### [facility] [address] [place] [address] Dr. Brea Causey Monocytes/100 WBC (Bld) 11.6 % Normal 1.7-12.0 [facility] Comment on above: Performed By: #### U CLINT, CMP, LIPID, DBIL, PHOS, MG #### [facility] [address] [place] [address] Dr. Brea Causey NEUT # 4.0 103/ul Normal 1.4-6.5 [facility] Comment on above: Performed By: #### U CLINT, CMP, LIPID, DBIL, PHOS, MG #### [facility] [address] [place] [address] Dr. Brea Causey Neutrophils/100 WBC (Bld) 68.5 % Normal 43.0-75.0 [facility] Comment on above: Performed By: #### U CLINT, CMP, LIPID, DBIL, PHOS, MG #### [facility] [address] [address] [address] Brea Causey Platelet mean volume (Bld) [Entitic vol] 9.2 fL Critically low 9.5-13.5 [facility] Comment on above: Performed By: #### U CLINT, CMP, LIPID, DBIL, PHOS, MG #### [facility] [address] [address] [address] Brea Causey PLT 231 103/ul Normal 150-450 [facility] Comment on above: Performed By: #### U CLINT, CMP, LIPID, DBIL, PHOS, MG #### [facility] [address] [address] [address] Brea Causey RBC 4.27 106/ul Critically low 4.70-6.10 [facility] Comment on above: Performed By: #### U CLINT, CMP, LIPID, DBIL, PHOS, MG #### [facility] [address] [address] [address] Brea Causey WBC 5.9 103/ul Normal 4.0-11.0 [facility] Comment on above: Performed By: #### U CLINT, CMP, LIPID, DBIL, PHOS, MG #### [facility] [address] [address] [address] Brea Causey LIPID PROFILEon 04-30-2022 CHOL-HDL RATIO NORM SEE BELOW Normal [facility] Comment on above: Result Comment: 3.3 - 4.4 LOW RISK 4.4 - 7.1 AVERAGE RISK 7.1 - 11.0 MODERATE RISK >11.0 HIGH RISK Performed By: #### U CLINT, CMP, LIPID, DBIL, PHOS, MG #### [facility] [address] [address] [address] Brea Causey Cholesterol [Mass/Vol] 78 mg/dL Normal <=200 [facility] Comment on above: Performed By: #### U CLINT, CMP, LIPID, DBIL, PHOS, MG #### [facility] [address] [address] [address] Brea Causey Cholesterol in HDL [Mass/Vol] 41 mg/dL Normal 40-60 [facility] Comment on above: Performed By: #### U CLINT, CMP, LIPID, DBIL, PHOS, MG #### [facility] [address] [address] [address] Brea Causey Cholesterol in LDL [Mass/Vol] 17.8 mg/dL Normal [facility] Comment on above: Performed By: #### U CLINT, CMP, LIPID, DBIL, PHOS, MG #### [facility] [address] [address] [address] Brea Causey Cholesterol.total/Cho lesterol in HDL [Mass ratio] 1.9 {ratio} Normal [facility] Comment on above: Performed By: #### U CLINT, CMP, LIPID, DBIL, PHOS, MG #### [facility] [address] [address] [address] Brea Causey HDL NORMAL > or = 60 mg/dl - LO W CARDIOVASCULAR RISK <40 mg/dl - HIGH CARDIOVASCULAR RISK Normal [facility] Comment on above: Performed By: #### U CLINT, CMP, LIPID, DBIL, PHOS, MG #### [facility] [address] [address] [address] Brea Causey LDL CALC NORMAL SEE BELOW Normal [facility] Comment on above: Result Comment: <100 mg/dl OPTIMAL 100 - 129 mg/dl NEAR OR ABOVE OPTIMAL 130 - 159 mg/dl BORDERLINE HIGH 160 - 189 mg/dl HIGH >190 mg/dl VERY HIGH Performed By: #### U CLINT, CMP, LIPID, DBIL, PHOS, MG #### [facility] [address] [address] [address] Brea Casuey Triglyceride [Mass/Vol] 96 mg/dL Normal <=150 [facility] Comment on above: Performed By: #### U CLINT, CMP, LIPID, DBIL, PHOS, MG #### [facility] [address] [address] [address] Brea Causey VLDL CALC 19.2 mg/dL Normal [facility] Comment on above: Performed By: #### U CLINT, CMP, LIPID, DBIL, PHOS, MG #### [facility] [address] [place] [address] Dr. Brea Causey MAGNESIUMon 04-30-2022 Magnesium [Mass/Vol] 1.7 mg/dL Critically low 1.8-2.4 [facility] Comment on above: Performed By: #### U CLINT, CMP, LIPID, DBIL, PHOS, MG #### [facility] [address] [place] [address] Dr. Brea Causey PHOSPHORUSon 04-30-2022 Phosphate [Mass/Vol] 3.6 mg/dL Normal 2.6-4.7 [facility] Comment on above: Performed By: #### U CLINT, CMP, LIPID, DBIL, PHOS, MG #### [facility] [address] [place] [address] Dr. Brea Causey PROF 14(COMP METB)on 022 Albumin [Mass/Vol] 4.0 g/dL Normal 3.4-5.0 [facility] Comment on above: Performed By: #### U CLINT, CMP, LIPID, DBIL, PHOS, MG #### [facility] [address] [place] [address] Dr. Brea Causey Albumin/Globulin [Mass ratio] 1.3 {ratio} Normal [facility] Comment on above: Performed By: #### U CLINT, CMP, LIPID, DBIL, PHOS, MG #### [facility] [address] [place] [address] Dr. Brea Causey ALP [Catalytic activity/Vol] 196 U/L Critically high 46-116 [facility] Comment on above: Performed By: #### U CLINT, CMP, LIPID, DBIL, PHOS, MG #### [facility] [address] [place] [address] Dr. Brea Causey ALT [Catalytic activity/Vol] 21 U/L Normal 16-63 [facility] Comment on above: Performed By: #### U CLINT, CMP, LIPID, DBIL, PHOS, MG #### [facility] [address] [place] [address] Dr. Brea Causey Anion gap [Moles/Vol] 10.5 mmol/L Normal [facility] Comment on above: Performed By: #### U CLINT, CMP, LIPID, DBIL, PHOS, MG #### [facility] [address] [place] [address] Dr. Brea Causey AST [Catalytic activity/Vol] 16 U/L Normal 15-37 [facility] Comment on above: Performed By: #### U CLINT, CMP, LIPID, DBIL, PHOS, MG #### [facility] [address] [address] [address] Brea Causey Bilirubin [Mass/Vol] 0.3 mg/dL Normal 0.2-1.0 [facility] Comment on above: Performed By: #### U CLINT, CMP, LIPID, DBIL, PHOS, MG #### [facility] [address] [place] [address] Dr. Brea Causey Calcium [Mass/Vol] 8.6 mg/dL Normal 8.5-10.1 [facility] Comment on above: Performed By: #### U CLINT, CMP, LIPID, DBIL, PHOS, MG #### [facility] [address] [place] [address] Dr. Brea Causey Chloride [Moles/Vol] 95 mmol/L Critically low 98-107 [facility] Comment on above: Performed By: #### U CLINT, CMP, LIPID, DBIL, PHOS, MG #### [facility] [address] [place] [address] Dr. Brea Causey CO2 [Moles/Vol] 30.9 mmol/L Normal 21.0-32.0 [facility] Comment on above: Performed By: #### U CLINT, CMP, LIPID, DBIL, PHOS, MG #### [facility] [address] [place] [address] Dr. Brea Causey Creatinine [Mass/Vol] 1.00 mg/dL Normal 0.70-1.30 [facility] Comment on above: Performed By: #### U CLINT, CMP, LIPID, DBIL, PHOS, MG #### [facility] [address] [address] [address] Brea Causey EGFR-AF LUXEMBOURGER >60 Normal >=60 [facility] Comment on above: Performed By: #### U CLINT, CMP, LIPID, DBIL, PHOS, MG #### [facility] [address] [address] [address] Brea Causey EGFR-NON AF LUXEMBOURGER >60 Normal >=60 [facility] Comment on above: Performed By: #### U CLINT, CMP, LIPID, DBIL, PHOS, MG #### [facility] [address] [address] [address] Brea Causey Globulin (S) [Mass/Vol] 3.2 g/dL Normal [facility] Comment on above: Performed By: #### U CLINT, CMP, LIPID, DBIL, PHOS, MG #### [facility] [address] [address] [address] Brea Causey Glucose [Mass/Vol] 160 mg/dL Critically high 74-106 [facility] Comment on above: Performed By: #### U CLINT, CMP, LIPID, DBIL, PHOS, MG #### [facility] [address] [address] [address] Brea Causey Potassium [Moles/Vol] 5.4 mmol/L Critically high 3.5-5.1 [facility] Comment on above: Performed By: #### U CLINT, CMP, LIPID, DBIL, PHOS, MG #### [facility] [address] [address] [address] Brea Causey Protein [Mass/Vol] 7.2 g/dL Normal 6.4-8.2 [facility] Comment on above: Performed By: #### U CLINT, CMP, LIPID, DBIL, PHOS, MG #### [facility] [address] [address] [address] Brea Causey Sodium [Moles/Vol] 131 mmol/L Critically low 136-145 [facility] Comment on above: Performed By: #### U CLINT, CMP, LIPID, DBIL, PHOS, MG #### [facility] [address] [place] [address] Dr. Brea Causey Urea nitrogen [Mass/Vol] 11.0 mg/dL Normal 7.0-18.0 [facility] Comment on above: Performed By: #### U CLINT, CMP, LIPID, DBIL, PHOS, MG #### [facility] [address] [place] [address] Dr. Brea Causey Urea nitrogen/Creatinine [Mass ratio] 11.0 mg/mg Normal [facility] Comment on above: Performed By: #### U CLINT, CMP, LIPID, DBIL, PHOS, MG #### [facility] [address] [place] [address] Dr. Brea Causey URIC ACID SERUMon 04-30-2022 Urate [Mass/Vol] 5.9 mg/dL Normal 3.5-7.2 [facility] Comment on above: Performed By: #### U CLINT, CMP, LIPID, DBIL, PHOS, MG #### [facility] [address] [place] [address] Dr. Brea Causey FK506 (TACROLIMUS) WHOLE BLO ODon 04-06-2022 Tacrolimus (FK506), Blood 3.0 ng/mL Normal 2.0-20.0 [facility] Comment on above: Result Comment: Trou gh (immediately following transplant) 15.0 . Trough (steady state, 2 weeks or more after transplant): 3.0 - 8.0 . Performed by LC-MS/MS technology. Performed By: #### U CLINT, CMP, LIPID, DBIL, PHOS, MG #### [facility] [address] [place] [address] Dr. Brea Causey BILIRUBIN CONJUGATED (DIRECT )on 04-03-2022 BILI, CONJUGATED 0.1 mg/dL Normal 0.0-0.2 [facility] Comment on above: Performed By: #### U CLINT, CMP, LIPID, DBIL, PHOS, MG #### [facility] [address] [place] [address] Dr. Brea Causey CBC AUTO DIFFon 04-03-2022 BASO # 0.0 103/ul Normal 0.0-0.1 [facility] Comment on above: Performed By: #### U CLINT, CMP, LIPID, DBIL, PHOS, MG #### [facility] [address] [place] [address] Dr. Brea Causey Basophils/100 WBC (Bld) 0.5 % Normal 0.2-2.0 [facility] Comment on above: Performed By: #### U CLINT, CMP, LIPID, DBIL, PHOS, MG #### [facility] [address] [place] [address] Dr. Brea Causey EO # 0.1 103/ul Normal 0.0-0.7 [facility] Comment on above: Performed By: #### U CLINT, CMP, LIPID, DBIL, PHOS, MG #### [facility] [address] [place] [address] Dr. Brea Causey Eosinophils/100 WBC (Bld) 2.5 % Normal 0.9-7.0 [facility] Comment on above: Performed By: #### U CLINT, CMP, LIPID, DBIL, PHOS, MG #### [facility] [address] [place] [address] Dr. Brea Causey Erythrocyte distribution width (RBC) [Ratio] 13.3 % Normal 11.0-15.0 [facility] Comment on above: Performed By: #### U CLINT, CMP, LIPID, DBIL, PHOS, MG #### [facility] [address] [place] [address] Dr. Brea Causey Hematocrit (Bld) [Volume fraction] 36.4 % Critically low 42.0-54.0 [facility] Comment on above: Performed By: #### U CLINT, CMP, LIPID, DBIL, PHOS, MG #### [facility] [address] [place] [address] Dr. Brea Causey Hemoglobin (Bld) [Mass/Vol] 12.3 g/dL Critically low 14.0-18.0 [facility] Comment on above: Performed By: #### U CLINT, CMP, LIPID, DBIL, PHOS, MG #### [facility] [address] [address] [address] Brea Causey IG # 0.03 10e3/ul Normal 0.00-0.03 [facility] Comment on above: Performed By: #### U CLINT, CMP, LIPID, DBIL, PHOS, MG #### [facility] [address] [place] [address] Dr. Brea Causey IG % 0.5 % Normal 0.0-0.5 [facility] Comment on above: Performed By: #### U CLINT, CMP, LIPID, DBIL, PHOS, MG #### [facility] [address] [place] [address] Dr. Brea Causey LYMPH # 0.9 103/ul Critically low 1.2-3.8 [facility] Comment on above: Performed By: #### U CLINT, CMP, LIPID, DBIL, PHOS, MG #### [facility] [address] [place] [address] Dr. Brea Causey Lymphocytes/100 WBC (Bld) 16.9 % Critically low 20.5-60.0 [facility] Comment on above: Performed By: #### U CLINT, CMP, LIPID, DBIL, PHOS, MG #### [facility] [address] [place] [address] Dr. Brea Causey MANUAL DIFF REQ NO Normal [facility] Comment on above: Performed By: #### U CLINT, CMP, LIPID, DBIL, PHOS, MG #### [facility] [address] [place] [address] Dr. Brea Causey MCH (RBC) [Entitic mass] 29.3 pg Normal 25.9-34.0 [facility] Comment on above: Performed By: #### U CLINT, CMP, LIPID, DBIL, PHOS, MG #### [facility] [address] [place] [address] Dr. Brea Causey MCHC (RBC) [Mass/Vol] 33.8 g/dL Normal 29.9-35.2 [facility] Comment on above: Performed By: #### U CLINT, CMP, LIPID, DBIL, PHOS, MG #### [facility] [address] [place] [address] Dr. Brea Causey MCV (RBC) [Entitic vol] 86.7 fL Normal 80.0-94.0 [facility] Comment on above: Performed By: #### U CLINT, CMP, LIPID, DBIL, PHOS, MG #### [facility] [address] [place] [address] Dr. Brea Causey MONO # 0.6 103/ul Normal 0.3-0.8 [facility] Comment on above: Performed By: #### U CLINT, CMP, LIPID, DBIL, PHOS, MG #### [facility] [address] [place] [address] Dr. Brea Causey Monocytes/100 WBC (Bld) 10.1 % Normal 1.7-12.0 [facility] Comment on above: Performed By: #### U CLINT, CMP, LIPID, DBIL, PHOS, MG #### [facility] [address] [place] [address] Dr. Brea Causey NEUT # 3.9 103/ul Normal 1.4-6.5 [facility] Comment on above: Performed By: #### U CLINT, CMP, LIPID, DBIL, PHOS, MG #### [facility] [address] [place] [address] Dr. Brea Causey Neutrophils/100 WBC (Bld) 69.5 % Normal 43.0-75.0 [facility] Comment on above: Performed By: #### U CLINT, CMP, LIPID, DBIL, PHOS, MG #### [facility] [address] [place] [address] Dr. Brea Causey Platelet mean volume (Bld) [Entitic vol] 9.2 fL Critically low 9.5-13.5 [facility] Comment on above: Performed By: #### U CLINT, CMP, LIPID, DBIL, PHOS, MG #### [facility] [address] [place] [address] Dr. Brea Causey PLT 228 103/ul Normal 150-450 [facility] Comment on above: Performed By: #### U CLINT, CMP, LIPID, DBIL, PHOS, MG #### [facility] [address] [address] [address] Brea Causey RBC 4.20 106/ul Critically low 4.70-6.10 [facility] Comment on above: Performed By: #### U CLINT, CMP, LIPID, DBIL, PHOS, MG #### [facility] [address] [place] [address] Dr. Brea Causey WBC 5.6 103/ul Normal 4.0-11.0 [facility] Comment on above: Performed By: #### U CLINT, CMP, LIPID, DBIL, PHOS, MG #### [facility] [address] [place] [address] Dr. Brea Causey LIPID PROFILEon 04-03-2022 CHOL-HDL RATIO NORM SEE BELOW Normal [facility] Comment on above: Result Comment: 3.3 - 4.4 LOW RISK 4.4 - 7.1 AVERAGE RISK 7.1 - 11.0 MODERATE RISK >11.0 HIGH RISK Performed By: #### U CLINT, CMP, LIPID, DBIL, PHOS, MG #### [facility] [address] [place] [address] Dr. Brea Causey Cholesterol [Mass/Vol] 84 mg/dL Normal <=200 [facility] Comment on above: Performed By: #### U CLINT, CMP, LIPID, DBIL, PHOS, MG #### [facility] [address] [place] [address] Dr. Brea Causey Cholesterol in HDL [Mass/Vol] 45 mg/dL Normal 40-60 [facility] Comment on above: Performed By: #### U CLINT, CMP, LIPID, DBIL, PHOS, MG #### [facility] [address] [place] [address] Dr. Brea Causey Cholesterol in LDL [Mass/Vol] 22.8 mg/dL Normal [facility] Comment on above: Performed By: #### U CLINT, CMP, LIPID, DBIL, PHOS, MG #### [facility] [address] [place] [address] Dr. Brea Causey Cholesterol.total/Cho lesterol in HDL [Mass ratio] 1.9 {ratio} Normal [facility] Comment on above: Performed By: #### U CLINT, CMP, LIPID, DBIL, PHOS, MG #### [facility] [address] [address] [address] Brea Causey HDL NORMAL > or = 60 mg/dl - LO W CARDIOVASCULAR RISK <40 mg/dl - HIGH CARDIOVASCULAR RISK Normal [facility] Comment on above: Performed By: #### U CLINT, CMP, LIPID, DBIL, PHOS, MG #### [facility] [address] [address] [address] Brea Causey LDL CALC NORMAL SEE BELOW Normal [facility] Comment on above: Result Comment: <100 mg/dl OPTIMAL 100 - 129 mg/dl NEAR OR ABOVE OPTIMAL 130 - 159 mg/dl BORDERLINE HIGH 160 - 189 mg/dl HIGH >190 mg/dl VERY HIGH Performed By: #### U CLINT, CMP, LIPID, DBIL, PHOS, MG #### [facility] [address] [address] [address] Brea Causey Triglyceride [Mass/Vol] 81 mg/dL Normal <=150 [facility] Comment on above: Performed By: #### U CLINT, CMP, LIPID, DBIL, PHOS, MG #### [facility] [address] [address] [address] Brea Causey VLDL CALC 16.2 mg/dL Normal [facility] Comment on above: Performed By: #### U CLINT, CMP, LIPID, DBIL, PHOS, MG #### [facility] [address] [address] [address] Brea Causey MAGNESIUMon 04-03-2022 Magnesium [Mass/Vol] 1.6 mg/dL Critically low 1.8-2.4 [facility] Comment on above: Performed By: #### U CLINT, CMP, LIPID, DBIL, PHOS, MG #### [facility] [address] [address] [address] Brea Causey PHOSPHORUSon 04-03-2022 Phosphate [Mass/Vol] 3.9 mg/dL Normal 2.6-4.7 [facility] Comment on above: Performed By: #### U CLINT, CMP, LIPID, DBIL, PHOS, MG #### [facility] [address] [place] [address] Dr. Brea Causey PROF 14(COMP METB)on 022 Albumin [Mass/Vol] 4.0 g/dL Normal 3.4-5.0 [facility] Comment on above: Performed By: #### U CLINT, CMP, LIPID, DBIL, PHOS, MG #### [facility] [address] [place] [address] Dr. Brea Causey Albumin/Globulin [Mass ratio] 1.2 {ratio} Normal [facility] Comment on above: Performed By: #### U CLINT, CMP, LIPID, DBIL, PHOS, MG #### [facility] [address] [place] [address] Dr. Brea Causey ALP [Catalytic activity/Vol] 196 U/L Critically high 46-116 [facility] Comment on above: Performed By: #### U CLINT, CMP, LIPID, DBIL, PHOS, MG #### [facility] [address] [place] [address] Dr. Brea Causey ALT [Catalytic activity/Vol] 19 U/L Normal 16-63 [facility] Comment on above: Performed By: #### U CLINT, CMP, LIPID, DBIL, PHOS, MG #### [facility] [address] [place] [address] Dr. Brea Causey Anion gap [Moles/Vol] 10.2 mmol/L Normal [facility] Comment on above: Performed By: #### U CLINT, CMP, LIPID, DBIL, PHOS, MG #### [facility] [address] [place] [address] Dr. Brea Causey AST [Catalytic activity/Vol] 15 U/L Normal 15-37 [facility] Comment on above: Performed By: #### U CLINT, CMP, LIPID, DBIL, PHOS, MG #### [facility] [address] [place] [address] Dr. Brea Causey Bilirubin [Mass/Vol] 0.3 mg/dL Normal 0.2-1.0 [facility] Comment on above: Performed By: #### U CLINT, CMP, LIPID, DBIL, PHOS, MG #### [facility] [address] [place] [address] Dr. Brea Causey Calcium [Mass/Vol] 8.2 mg/dL Critically low 8.5-10.1 [facility] Comment on above: Performed By: #### U CLINT, CMP, LIPID, DBIL, PHOS, MG #### [facility] [address] [place] [address] Dr. Brea Causey Chloride [Moles/Vol] 97 mmol/L Critically low 98-107 [facility] Comment on above: Performed By: #### U CLINT, CMP, LIPID, DBIL, PHOS, MG #### [facility] [address] [place] [address] Dr. Brea Causey CO2 [Moles/Vol] 28.2 mmol/L Normal 21.0-32.0 [facility] Comment on above: Performed By: #### U CLINT, CMP, LIPID, DBIL, PHOS, MG #### [facility] [address] [place] [address] Dr. Brea Causey Creatinine [Mass/Vol] 1.00 mg/dL Normal 0.70-1.30 [facility] Comment on above: Performed By: #### U CLINT, CMP, LIPID, DBIL, PHOS, MG #### [facility] [address] [place] [address] Dr. Brea Causey EGFR-AF LUXEMBOURGER >60 Normal >=60 [facility] Comment on above: Performed By: #### U CLINT, CMP, LIPID, DBIL, PHOS, MG #### [facility] [address] [place] [address] Dr. Brea Causey EGFR-NON AF LUXEMBOURGER >60 Normal >=60 [facility] Comment on above: Performed By: #### U CLINT, CMP, LIPID, DBIL, PHOS, MG #### [facility] [address] [place] [address] Dr. Brea Causey Globulin (S) [Mass/Vol] 3.3 g/dL Normal [facility] Comment on above: Performed By: #### U CLINT, CMP, LIPID, DBIL, PHOS, MG #### [facility] [address] [address] [address] Brea Causey Glucose [Mass/Vol] 164 mg/dL Critically high 74-106 [facility] Comment on above: Performed By: #### U CLINT, CMP, LIPID, DBIL, PHOS, MG #### [facility] [address] [address] [address] Brea Causey Potassium [Moles/Vol] 4.4 mmol/L Normal 3.5-5.1 [facility] Comment on above: Performed By: #### U CLINT, CMP, LIPID, DBIL, PHOS, MG #### [facility] [address] [place] [address] Dr. Brea Causey Protein [Mass/Vol] 7.3 g/dL Normal 6.4-8.2 [facility] Comment on above: Performed By: #### U CLINT, CMP, LIPID, DBIL, PHOS, MG #### [facility] [address] [place] [address] Dr. Brea Causey Sodium [Moles/Vol] 131 mmol/L Critically low 136-145 [facility] Comment on above: Performed By: #### U CLINT, CMP, LIPID, DBIL, PHOS, MG #### [facility] [address] [place] [address] Dr. Brea Causey Urea nitrogen [Mass/Vol] 13.0 mg/dL Normal 7.0-18.0 [facility] Comment on above: Performed By: #### U CLINT, CMP, LIPID, DBIL, PHOS, MG #### [facility] [address] [place] [address] Dr. Brea Causey Urea nitrogen/Creatinine [Mass ratio] 13.0 mg/mg Normal [facility] Comment on above: Performed By: #### U CLINT, CMP, LIPID, DBIL, PHOS, MG #### [facility] [address] [address] [address] Brea Causey URIC ACID SERUMon 04-03-2022 Urate [Mass/Vol] 6.1 mg/dL Normal 3.5-7.2 [facility] Comment on above: Performed By: #### U CLINT, CMP, LIPID, DBIL, PHOS, MG #### [facility] [address] [address] [address] Brea Causey TESTOSTERONE, FREE,DIRECT, T OTALon 03-13-2022 Free Testosterone(Direct) 6.9 pg/mL Normal 6.6-18.1 [facility] Comment on above: Result Comment: Perf ormed at: BN Performed By: #### T ESTFRD #### [facility] [address] [place] [address] Dr. Brea Causey Testosterone [Mass/Vol] 428 ng/dL Normal 264-916 [facility] Comment on above: Result Comment: Adul t male reference interval is based on a population of healthy nonobese males (BMI <30) between 19 and 39 years old. Steven et.al. JCEM 2017,102;4825-9992. PMID: [id number]. Performed at: CB Performed By: #### T ESTFRD #### [facility] [address] [place] [address] Dr. Brea Causey BK VIRUS PCR QUANTon 022 BKV DNA QUANT PCR PLASMA Negative Normal Negative [facility] Comment on above: Result Comment: No B K DNA detected. . The linear range of the assay is 22 - 100,000,000 IU/mL. Performed By: #### B KVIRUS #### [facility] [address] [place] [address] Dr. Brea Causey Log10 BKV DNA Plasma Normal [facility] Comment on above: Performed By: #### B KVIRUS #### [facility] [address] [place] [address] Dr. Brea Causey FK506 (TACROLIMUS) WHOLE BLO ODon 03-11-2022 Tacrolimus (FK506), Blood 4.7 ng/mL Normal 2.0-20.0 [facility] Comment on above: Result Comment: Trou gh (immediately following transplant) 15.0 . Trough (steady state, 2 weeks or more after transplant): 3.0 - 8.0 . Performed by LC-MS/MS technology. Performed By: #### C BC #### [facility] [address] [place] [address] Dr. Brea Causey BILIRUBIN CONJUGATED (DIRECT )on 03-08-2022 BILI, CONJUGATED 0.1 mg/dL Normal 0.0-0.2 [facility] Comment on above: Performed By: #### U CLINT, CMP, LIPID, DBIL, PHOS, MG #### [facility] [address] [place] [address] Dr. Brea Causey CBC AUTO DIFFon 03-08-2022 BASO # 0.0 103/ul Normal 0.0-0.1 [facility] Comment on above: Performed By: #### U CLINT, CMP, LIPID, DBIL, PHOS, MG #### [facility] [address] [place] [address] Dr. Brea Causey Basophils/100 WBC (Bld) 0.7 % Normal 0.2-2.0 [facility] Comment on above: Performed By: #### U CLINT, CMP, LIPID, DBIL, PHOS, MG #### [facility] [address] [place] [address] Dr. Brea Causey EO # 0.2 103/ul Normal 0.0-0.7 [facility] Comment on above: Performed By: #### U CLINT, CMP, LIPID, DBIL, PHOS, MG #### [facility] [address] [place] [address] Dr. Brea Causey Eosinophils/100 WBC (Bld) 3.1 % Normal 0.9-7.0 [facility] Comment on above: Performed By: #### U CLINT, CMP, LIPID, DBIL, PHOS, MG #### [facility] [address] [place] [address] Dr. Brea Causey Erythrocyte distribution width (RBC) [Ratio] 13.3 % Normal 11.0-15.0 [facility] Comment on above: Performed By: #### U CLINT, CMP, LIPID, DBIL, PHOS, MG #### [facility] [address] [place] [address] Dr. Brea Causey Hematocrit (Bld) [Volume fraction] 35.7 % Critically low 42.0-54.0 [facility] Comment on above: Performed By: #### U CLINT, CMP, LIPID, DBIL, PHOS, MG #### [facility] [address] [place] [address] Dr. Brea Causey Hemoglobin (Bld) [Mass/Vol] 12.0 g/dL Critically low 14.0-18.0 [facility] Comment on above: Performed By: #### U CLINT, CMP, LIPID, DBIL, PHOS, MG #### [facility] [address] [place] [address] Dr. Brea Causey IG # 0.06 10e3/ul Critically high 0.00-0.03 [facility] Comment on above: Performed By: #### U CLINT, CMP, LIPID, DBIL, PHOS, MG #### [facility] [address] [place] [address] Dr. Brea Causey IG % 1.0 % Critically high 0.0-0.5 [facility] Comment on above: Performed By: #### U CLINT, CMP, LIPID, DBIL, PHOS, MG #### [facility] [address] [place] [address] Dr. Brea Causey LYMPH # 0.8 103/ul Critically low 1.2-3.8 [facility] Comment on above: Performed By: #### U CLINT, CMP, LIPID, DBIL, PHOS, MG #### [facility] [address] [place] [address] Dr. Brea Causey Lymphocytes/100 WBC (Bld) 12.9 % Critically low 20.5-60.0 [facility] Comment on above: Performed By: #### U CLINT, CMP, LIPID, DBIL, PHOS, MG #### [facility] [address] [place] [address] Dr. Brea Causey MANUAL DIFF REQ NO Normal [facility] Comment on above: Performed By: #### U CLINT, CMP, LIPID, DBIL, PHOS, MG #### [facility] [address] [place] [address] Dr. Brea Causey MCH (RBC) [Entitic mass] 29.5 pg Normal 25.9-34.0 [facility] Comment on above: Performed By: #### U CLINT, CMP, LIPID, DBIL, PHOS, MG #### [facility] [address] [place] [address] Dr. Brea Causey MCHC (RBC) [Mass/Vol] 33.6 g/dL Normal 29.9-35.2 [facility] Comment on above: Performed By: #### U CLINT, CMP, LIPID, DBIL, PHOS, MG #### [facility] [address] [place] [address] Dr. Brea Causey MCV (RBC) [Entitic vol] 87.7 fL Normal 80.0-94.0 [facility] Comment on above: Performed By: #### U CLINT, CMP, LIPID, DBIL, PHOS, MG #### [facility] [address] [place] [address] Dr. Brea Causey MONO # 0.6 103/ul Normal 0.3-0.8 [facility] Comment on above: Performed By: #### U CLINT, CMP, LIPID, DBIL, PHOS, MG #### [facility] [address] [place] [address] Dr. Brea Causey Monocytes/100 WBC (Bld) 9.8 % Normal 1.7-12.0 [facility] Comment on above: Performed By: #### U CLINT, CMP, LIPID, DBIL, PHOS, MG #### [facility] [address] [place] [address] Dr. Brea Causey NEUT # 4.4 103/ul Normal 1.4-6.5 [facility] Comment on above: Performed By: #### U CLINT, CMP, LIPID, DBIL, PHOS, MG #### [facility] [address] [place] [address] Dr. Brea Causey Neutrophils/100 WBC (Bld) 72.5 % Normal 43.0-75.0 [facility] Comment on above: Performed By: #### U CLINT, CMP, LIPID, DBIL, PHOS, MG #### [facility] [address] [address] [address] Brea Causey Platelet mean volume (Bld) [Entitic vol] 9.6 fL Normal 9.5-13.5 [facility] Comment on above: Performed By: #### U CLINT, CMP, LIPID, DBIL, PHOS, MG #### [facility] [address] [address] [address] Brea Causey PLT 265 103/ul Normal 150-450 [facility] Comment on above: Performed By: #### U CLINT, CMP, LIPID, DBIL, PHOS, MG #### [facility] [address] [place] [address] Dr. Brea Causey RBC 4.07 106/ul Critically low 4.70-6.10 [facility] Comment on above: Performed By: #### U CLINT, CMP, LIPID, DBIL, PHOS, MG #### [facility] [address] [address] [address] Brea Causey WBC 6.0 103/ul Normal 4.0-11.0 [facility] Comment on above: Performed By: #### U CLINT, CMP, LIPID, DBIL, PHOS, MG #### [facility] [address] [address] [address] Brea Causey GLYCOHEMOGLOBIN A1Con 2021 ADA RECOMMENDATION SEE BELOW Normal [facility] Comment on above: Result Comment: ADA RECOMMENDED LIMIT 4.0 - 6.0 ADA THERAPEUTIC TARGET < 7.0 ACTION SUGGESTED > 7.0 Performed By: #### U CLINT, CMP, LIPID, DBIL, PHOS, MG #### [facility] [address] [address] [address] Brea Causey Glucose [Mass/Vol] 169 mg/dL Normal [facility] Comment on above: Performed By: #### U CLINT, CMP, LIPID, DBIL, PHOS, MG #### [facility] [address] [address] [address] Brea Causey HbA1c (Bld) [Mass fraction] 7.5 % Critically high 4.5-6.2 [facility] Comment on above: Performed By: #### U CLINT, CMP, LIPID, DBIL, PHOS, MG #### [facility] [address] [address] [address] Brea Causey LIPID PROFILEon 03-08-2022 CHOL-HDL RATIO NORM SEE BELOW Normal [facility] Comment on above: Result Comment: 3.3 - 4.4 LOW RISK 4.4 - 7.1 AVERAGE RISK 7.1 - 11.0 MODERATE RISK >11.0 HIGH RISK Performed By: #### U CLINT, CMP, LIPID, DBIL, PHOS, MG #### [facility] [address] [place] [address] Dr. Brea Causey Cholesterol [Mass/Vol] 77 mg/dL Normal <=200 [facility] Comment on above: Performed By: #### U CLINT, CMP, LIPID, DBIL, PHOS, MG #### [facility] [address] [address] [address] Brea Causey Cholesterol in HDL [Mass/Vol] 49 mg/dL Normal 40-60 [facility] Comment on above: Performed By: #### U CLINT, CMP, LIPID, DBIL, PHOS, MG #### [facility] [address] [address] [address] Brea Causey Cholesterol in LDL [Mass/Vol] 20.4 mg/dL Normal [facility] Comment on above: Performed By: #### U CLINT, CMP, LIPID, DBIL, PHOS, MG #### [facility] [address] [address] [address] Brea Causey Cholesterol.total/Cho lesterol in HDL [Mass ratio] 1.6 {ratio} Normal [facility] Comment on above: Performed By: #### U CLINT, CMP, LIPID, DBIL, PHOS, MG #### [facility] [address] [place] [address] Dr. Brea Causey HDL NORMAL > or = 60 mg/dl - LO W CARDIOVASCULAR RISK <40 mg/dl - HIGH CARDIOVASCULAR RISK Normal [facility] Comment on above: Performed By: #### U CLINT, CMP, LIPID, DBIL, PHOS, MG #### [facility] [address] [address] [address] Brea Causey LDL CALC NORMAL SEE BELOW Normal [facility] Comment on above: Result Comment: <100 mg/dl OPTIMAL 100 - 129 mg/dl NEAR OR ABOVE OPTIMAL 130 - 159 mg/dl BORDERLINE HIGH 160 - 189 mg/dl HIGH >190 mg/dl VERY HIGH Performed By: #### U CLINT, CMP, LIPID, DBIL, PHOS, MG #### [facility] [address] [address] [address] Brea Causey Triglyceride [Mass/Vol] 38 mg/dL Normal <=150 [facility] Comment on above: Performed By: #### U CLINT, CMP, LIPID, DBIL, PHOS, MG #### [facility] [address] [address] [address] Brea Causey VLDL CALC 7.6 mg/dL Normal [facility] Comment on above: Performed By: #### U CLINT, CMP, LIPID, DBIL, PHOS, MG #### [facility] [address] [address] [address] Brea Causey MAGNESIUMon 03-08-2022 Magnesium [Mass/Vol] 1.5 mg/dL Critically low 1.8-2.4 [facility] Comment on above: Performed By: #### U CLINT, CMP, LIPID, DBIL, PHOS, MG #### [facility] [address] [address] [address] Brea Causey PHOSPHORUSon 03-08-2022 Phosphate [Mass/Vol] 3.6 mg/dL Normal 2.6-4.7 [facility] Comment on above: Performed By: #### U CLINT, CMP, LIPID, DBIL, PHOS, MG #### [facility] [address] [address] [address] Brea Causey PROF 14(COMP METB)on 10-28-2 022 Albumin [Mass/Vol] 4.0 g/dL Normal 3.4-5.0 [facility] Comment on above: Performed By: #### U CLINT, CMP, LIPID, DBIL, PHOS, MG #### [facility] [address] [place] [address] Dr. Brea Causey Albumin/Globulin [Mass ratio] 1.2 {ratio} Normal [facility] Comment on above: Performed By: #### U CLINT, CMP, LIPID, DBIL, PHOS, MG #### [facility] [address] [place] [address] Dr. Brea Causey ALP [Catalytic activity/Vol] 176 U/L Critically high 46-116 [facility] Comment on above: Performed By: #### U CLINT, CMP, LIPID, DBIL, PHOS, MG #### [facility] [address] [place] [address] Dr. Brea Causey ALT [Catalytic activity/Vol] 21 U/L Normal 16-63 [facility] Comment on above: Performed By: #### U CLINT, CMP, LIPID, DBIL, PHOS, MG #### [facility] [address] [place] [address] Dr. Brea Causey Anion gap [Moles/Vol] 12.0 mmol/L Normal [facility] Comment on above: Performed By: #### U CLINT, CMP, LIPID, DBIL, PHOS, MG #### [facility] [address] [place] [address] Dr. Brea Causey AST [Catalytic activity/Vol] 13 U/L Critically low 15-37 The [facility] Comment on above: Performed By: #### U CLINT, CMP, LIPID, DBIL, PHOS, MG #### [facility] [address] [place] [address] Dr. Brea Causey Bilirubin [Mass/Vol] 0.3 mg/dL Normal 0.2-1.0 [facility] Comment on above: Performed By: #### U CLINT, CMP, LIPID, DBIL, PHOS, MG #### [facility] [address] [place] [address] Dr. Brea Causey Calcium [Mass/Vol] 7.9 mg/dL Critically low 8.5-10.1 Th e [facility] Comment on above: Performed By: #### U CLINT, CMP, LIPID, DBIL, PHOS, MG #### [facility] [address] [place] [address] Dr. Brea Causey Chloride [Moles/Vol] 100 mmol/L Normal 98-107 [facility] Comment on above: Performed By: #### U CLINT, CMP, LIPID, DBIL, PHOS, MG #### [facility] [address] [address] [address] Brea Causey CO2 [Moles/Vol] 27.3 mmol/L Normal 21.0-32.0 [facility] Comment on above: Performed By: #### U CLINT, CMP, LIPID, DBIL, PHOS, MG #### [facility] [address] [place] [address] Dr. Brea Causey Creatinine [Mass/Vol] 1.00 mg/dL Normal 0.70-1.30 [facility] Comment on above: Performed By: #### U CLINT, CMP, LIPID, DBIL, PHOS, MG #### [facility] [address] [place] [address] Dr. Brea Causey EGFR-AF LUXEMBOURGER >60 Normal >=60 [facility] Comment on above: Performed By: #### U CLINT, CMP, LIPID, DBIL, PHOS, MG #### [facility] [address] [place] [address] Dr. Brea Causey EGFR-NON AF LUXEMBOURGER >60 Normal >=60 [facility] Comment on above: Performed By: #### U CLINT, CMP, LIPID, DBIL, PHOS, MG #### [facility] [address] [place] [address] Dr. Brea Causey Globulin (S) [Mass/Vol] 3.3 g/dL Normal [facility] Comment on above: Performed By: #### U CLINT, CMP, LIPID, DBIL, PHOS, MG #### [facility] [address] [place] [address] Dr. Brea Causey Glucose [Mass/Vol] 155 mg/dL Critically high 74-106 [facility] Comment on above: Performed By: #### U CLINT, CMP, LIPID, DBIL, PHOS, MG #### [facility] [address] [place] [address] Dr. Brea Causey Potassium [Moles/Vol] 4.3 mmol/L Normal 3.5-5.1 [facility] Comment on above: Performed By: #### U CLINT, CMP, LIPID, DBIL, PHOS, MG #### [facility] [address] [address] [address] Brea Causey Protein [Mass/Vol] 7.3 g/dL Normal 6.4-8.2 [facility] Comment on above: Performed By: #### U CLINT, CMP, LIPID, DBIL, PHOS, MG #### [facility] [address] [place] [address] Dr. Brea Causey Sodium [Moles/Vol] 135 mmol/L Critically low 136-145 [facility] Comment on above: Performed By: #### U CLINT, CMP, LIPID, DBIL, PHOS, MG #### [facility] [address] [place] [address] Dr. Brea Causey Urea nitrogen [Mass/Vol] 13.0 mg/dL Normal 7.0-18.0 [facility] Comment on above: Performed By: #### U CLINT, CMP, LIPID, DBIL, PHOS, MG #### [facility] [address] [place] [address] Dr. Brea Causey Urea nitrogen/Creatinine [Mass ratio] 13.0 mg/mg Normal [facility] Comment on above: Performed By: #### U CLINT, CMP, LIPID, DBIL, PHOS, MG #### [facility] [address] [place] [address] Dr. Brea Causey URIC ACID SERUMon 03-08-2022 Urate [Mass/Vol] 7.3 mg/dL Critically high 3.5-7.2 [facility] Comment on above: Performed By: #### U CLINT, CMP, LIPID, DBIL, PHOS, MG #### [facility] [address] [place] [address] Dr. Brea Snyder 03-05-2022 L - -------- Specimen: [id number] Received: 03/05/22 Status: CHERI Fair Num: [id number] Spec Type: Surgical Subm Dr: Tj Wells MD Tissues: A Colon Biopsy (COLON BX) B Colon Biopsy (DIVERTICULAR COLITIS) Procedures: HE Stain/4, Gross/Micro L4/2 -------- Age/ Patient Sex Location Account Attending Physician -------- Wm Suarez/Naomi [id number] Tj Wells MD -------- SPEC NUM: [id number] RECD: 03/05/22 STATUS: CHERI FAIR NUM: [id number] ESTEFANI: 03/05/22 DR: Tj Wells MD ENTERED: [...] in one cassette labeled B1. -------- Specimen: [id number] Received: 03/05/22 Status: CHERI Fair Num: [id number] Spec Type: Surgical Subm Dr: Tj Wells MD Tissues: A Colon Biopsy (COLON BX) B Colon Biopsy (DIVERTICULAR COLITIS) Procedures: HE Stain/4, Gross/Micro L4/2 -------- Patient: Wm Suarez [id number] (Continued) -------- Specimen: [id number] Received: 03/05/22 (Continued) Signed (signature on file) Kalpana Shaw MD 03/07/22 1025 -------- Specimen: [id number] Received: 03/05/22 Status: CHERI Fair Num: [id number] Spec Type: Surgical Subm Dr: Tj Wells MD Tissues: A Colon Biopsy (COLON BX) B Colon Biopsy (DIVERTICULAR COLITIS) Procedures: HE Stain/4, Gross/Micro L4/2 -------- Patient: Wm Suarez [id number] (Continued) -------- Specimen: [id number] Received: 03/05/22 (Continued) Microscopic Description A. Two glass slides with H E stained material have been examined. The microscopic findings support the above pathologic diagnosis. B. Two glass slides with H E stained material have been examined. The microscopic findings support the above pathologic diagnosis. CPT Codes 23633?2 -------- -------- Specimen: [id number] Received: 03/05/22 Status: CHERI Fair Num: [id number] Spec Type: Surgical Subm Dr: Tj Wells MD Tissues: A Colon Biopsy (COLON BX) B Colon Biopsy (DIVERTICULAR COLITIS) Procedures: HE Stain/4, Gross/Micro L4/2 -------- Patient: Wm Suarez [id number] (Continued) -------- Signed (signature on file) Kalpana Shaw MD 03/07/22 1025 [facility] COVID-19 Antigenon 2 COVID-19 Antigen Healthcare Worker?: [...] developed and its performance characteristic determined by [employer] and validated at [facility]. This test has not been FDA [...] for SARS Antigen by ROCHELLE PERFORMED BY: [address] [address] [place] [address] PATHOLOGIST COLLECTIONS ASSISTANT FEI WOODRUFF M.D. Normal [facility] Comment on above: Performed By: #### C OVID-19 MARQUISE, SOFIANEG #### [facility] [address] COVID-19 SOFIAOrdered By: Sheila Wells on 03-01-2022 SARS-CoV+SARS-CoV-2 (COVID-19) Ag IA.rapid Ql (Resp) Negative Negative [facility] Comment on above: This is a duplicate Marquise SARS Antigen (ROCHELLE) result to be used for statistical tracking purpose only. No Panel InformationOrdered By: Tj Wells on 03-01-2022 SARS Antigen (LFIA) [facility] Marquise Ag Negativeon 03-01-20 22 Marquise Ag Negative Negative Normal Negative [facility] Comment on above: Result Comment: This is a duplicate Marquise SARS Antigen (ROCHELLE) result to be used for statistical tracking purpose only. PERFORMED BY: [place] [address] PATHOLOGIST COLLECTIONS ASSISTANT FEI WOODRUFF M.D. Performed By: #### C OVID-19 MARQUISE, SOFIANEG #### [facility] [address] [place] [address] FK506 (TACROLIMUS) WHOLE BLO ODon 02-05-2022 Tacrolimus (FK506), Blood 5.4 ng/mL Normal 2.0-20.0 [facility] Comment on above: Result Comment: Trou gh (immediately following transplant) 15.0 . Trough (steady state, 2 weeks or more after transplant): 3.0 - 8.0 . Performed by LC-MS/MS technology. Performed By: #### U CLINT, CMP, LIPID, DBIL, PHOS, MG #### [facility] [address] [address] [address] Brea Causey BILIRUBIN CONJUGATED (DIRECT )on 02-01-2022 BILI, CONJUGATED 0.1 mg/dL Normal 0.0-0.2 [facility] Comment on above: Performed By: #### C BC #### [facility] [address] [address] [address] Brea Causey CBC AUTO DIFFon 02-01-2022 BASO # 0.0 103/ul Normal 0.0-0.1 [facility] Comment on above: Performed By: #### B KVIRUS #### [facility] [address] [place] [address] Dr. Brea Causey Basophils/100 WBC (Bld) 0.6 % Normal 0.2-2.0 [facility] Comment on above: Performed By: #### B KVIRUS #### [facility] [address] [place] [address] Dr. Brea Causey EO # 0.2 103/ul Normal 0.0-0.7 [facility] Comment on above: Performed By: #### B KVIRUS #### [facility] [address] [place] [address] Dr. Brea Causey Eosinophils/100 WBC (Bld) 3.5 % Normal 0.9-7.0 [facility] Comment on above: Performed By: #### B KVIRUS #### [facility] [address] [place] [address] Dr. Brea Causey Erythrocyte distribution width (RBC) [Ratio] 13.0 % Normal 11.0-15.0 [facility] Comment on above: Performed By: #### B KVIRUS #### [facility] [address] [place] [address] Dr. Brea Causey Hematocrit (Bld) [Volume fraction] 36.9 % Critically low 42.0-54.0 [facility] Comment on above: Performed By: #### B KVIRUS #### [facility] [address] [place] [address] Dr. Brea Causey Hemoglobin (Bld) [Mass/Vol] 12.0 g/dL Critically low 14.0-18.0 [facility] Comment on above: Performed By: #### B KVIRUS #### [facility] [address] [place] [address] Dr. Brea Causey IG # 0.07 10e3/ul Critically high 0.00-0.03 [facility] Comment on above: Performed By: #### B KVIRUS #### [facility] [address] [address] [address] Brea Causey IG % 1.0 % Critically high 0.0-0.5 [facility] Comment on above: Performed By: #### B KVIRUS #### [facility] [address] [place] [address] Dr. Brea Causey LYMPH # 1.0 103/ul Critically low 1.2-3.8 [facility] Comment on above: Performed By: #### B KVIRUS #### [facility] [address] [place] [address] Dr. Brea Causey Lymphocytes/100 WBC (Bld) 14.2 % Critically low 20.5-60.0 [facility] Comment on above: Performed By: #### B KVIRUS #### [facility] [address] [place] [address] Dr. Brea Causey MANUAL DIFF REQ NO Normal [facility] Comment on above: Performed By: #### B KVIRUS #### [facility] [address] [place] [address] Dr. Brea Causey MCH (RBC) [Entitic mass] 29.1 pg Normal 25.9-34.0 [facility] Comment on above: Performed By: #### B KVIRUS #### [facility] [address] [place] [address] Dr. Brea Causey MCHC (RBC) [Mass/Vol] 32.5 g/dL Normal 29.9-35.2 [facility] Comment on above: Performed By: #### B KVIRUS #### [facility] [address] [place] [address] Dr. Brea Causey MCV (RBC) [Entitic vol] 89.6 fL Normal 80.0-94.0 [facility] Comment on above: Performed By: #### B KVIRUS #### [facility] [address] [place] [address] Dr. Brea Causey MONO # 0.7 103/ul Normal 0.3-0.8 [facility] Comment on above: Performed By: #### B KVIRUS #### [facility] [address] [place], [place] [address] Dr. Brea Causey Monocytes/100 WBC (Bld) 9.9 % Normal 1.7-12.0 [facility] Comment on above: Performed By: #### B KVIRUS #### [facility] [address] [place] [address] Dr. Brea Causey NEUT # 4.9 103/ul Normal 1.4-6.5 [facility] Comment on above: Performed By: #### B KVIRUS #### [facility] [address] [address] [address] Brea Causey Neutrophils/100 WBC (Bld) 70.8 % Normal 43.0-75.0 [facility] Comment on above: Performed By: #### B KVIRUS #### [facility] [address] [place] [address] Dr. Brea Causey Platelet mean volume (Bld) [Entitic vol] 9.6 fL Normal 9.5-13.5 [facility] Comment on above: Performed By: #### B KVIRUS #### [facility] [address] [place] [address] Dr. Brea Causey PLT 247 103/ul Normal 150-450 [facility] Comment on above: Performed By: #### B KVIRUS #### [facility] [address] [place] [address] Dr. Brea Causey RBC 4.12 106/ul Critically low 4.70-6.10 [facility] Comment on above: Performed By: #### B KVIRUS #### [facility] [address] [place] [address] Dr. Brea Causey WBC 6.9 103/ul Normal 4.0-11.0 [facility] Comment on above: Performed By: #### B KVIRUS #### [facility] [address] [place] [address] Dr. Brea Causey LIPID PROFILEon 02-01-2022 CHOL-HDL RATIO NORM SEE BELOW Normal [facility] Comment on above: Result Comment: 3.3 - 4.4 LOW RISK 4.4 - 7.1 AVERAGE RISK 7.1 - 11.0 MODERATE RISK >11.0 HIGH RISK Performed By: #### C BC #### [facility] [address] [address] [address] Brea Causey Cholesterol [Mass/Vol] 77 mg/dL Normal <=200 [facility] Comment on above: Performed By: #### C BC #### [facility] [address] [address] [address] Brea Causey Cholesterol in HDL [Mass/Vol] 40 mg/dL Normal 40-60 [facility] Comment on above: Performed By: #### C BC #### [facility] [address] [address] [address] Brea Causey Cholesterol in LDL [Mass/Vol] 21.0 mg/dL Normal [facility] Comment on above: Performed By: #### C BC #### [facility] [address] [address] [address] Brea Causey Cholesterol.total/Cho lesterol in HDL [Mass ratio] 1.9 {ratio} Normal [facility] Comment on above: Performed By: #### C BC #### [facility] [address] [address] [address] Brea Causey HDL NORMAL > or = 60 mg/dl - LO W CARDIOVASCULAR RISK <40 mg/dl - HIGH CARDIOVASCULAR RISK Normal [facility] Comment on above: Performed By: #### C BC #### [facility] [address] [address] [address] Brea Causey LDL CALC NORMAL SEE BELOW Normal The [facility] Comment on above: Result Comment: <100 mg/dl OPTIMAL 100 - 129 mg/dl NEAR OR ABOVE OPTIMAL 130 - 159 mg/dl BORDERLINE HIGH 160 - 189 mg/dl HIGH >190 mg/dl VERY HIGH Performed By: #### C BC #### [facility] [address] [address] [address] Brea Causey Triglyceride [Mass/Vol] 80 mg/dL Normal <=150 [facility] Comment on above: Performed By: #### C BC #### [facility] [address] [address] [address] Brea Causey VLDL CALC 16.0 mg/dL Normal [facility] Comment on above: Performed By: #### C BC #### [facility] [address] [place] [address] Dr. Brea Causey MAGNESIUMon 02-01-2022 Magnesium [Mass/Vol] 1.5 mg/dL Critically low 1.8-2.4 [facility] Comment on above: Performed By: #### C BC #### [facility] [address] [place] [address] Dr. Brea Causey PHOSPHORUSon 02-01-2022 Phosphate [Mass/Vol] 4.1 mg/dL Normal 2.6-4.7 [facility] Comment on above: Performed By: #### C BC #### [facility] [address] [place] [address] Dr. Brea Causey PROF 14(COMP METB)on 022 Albumin [Mass/Vol] 4.0 g/dL Normal 3.4-5.0 [facility] Comment on above: Performed By: #### C BC #### [facility] [address] [place] [address] Dr. Brea Causey Albumin/Globulin [Mass ratio] 1.3 {ratio} Normal [facility] Comment on above: Performed By: #### C BC #### [facility] [address] [place] [address] Dr. Brea Causey ALP [Catalytic activity/Vol] 162 U/L Critically high 46-116 [facility] Comment on above: Performed By: #### C BC #### [facility] [address] [place] [address] Dr. Brea Causey ALT [Catalytic activity/Vol] 25 U/L Normal 16-63 [facility] Comment on above: Performed By: #### C BC #### [facility] [address] [place] [address] Dr. Brea Causey Anion gap [Moles/Vol] 11.1 mmol/L Normal [facility] Comment on above: Performed By: #### C BC #### [facility] [address] [place] [address] Dr. Brea Causey AST [Catalytic activity/Vol] 16 U/L Normal 15-37 [facility] Comment on above: Performed By: #### C BC #### [facility] [address] [place] [address] Dr. Brea Causey Bilirubin [Mass/Vol] 0.4 mg/dL Normal 0.2-1.0 [facility] Comment on above: Performed By: #### C BC #### [facility] [address] [place] [address] Dr. Brea Causey Calcium [Mass/Vol] 8.2 mg/dL Critically low 8.5-10.1 Th [facility] Comment on above: Performed By: #### C BC #### [facility] [address] [place] [address] Dr. Brea Causey Chloride [Moles/Vol] 99 mmol/L Normal 98-107 [facility] Comment on above: Performed By: #### C BC #### [facility] [address] [place] [address] Dr. Brea Causey CO2 [Moles/Vol] 28.1 mmol/L Normal 21.0-32.0 [facility] Comment on above: Performed By: #### C BC #### [facility] [address] [place] [address] Dr. Brea Causey Creatinine [Mass/Vol] 1.13 mg/dL Normal 0.70-1.30 [facility] Comment on above: Performed By: #### C BC #### [facility] [address] [place] [address] Dr. Brea Causey EGFR-AF LUXEMBOURGER >60 Normal >=60 [facility] Comment on above: Performed By: #### C BC #### [facility] [address] [place] [address] Dr. Brea Causey EGFR-NON AF LUXEMBOURGER >60 Normal >=60 [facility] Comment on above: Performed By: #### C BC #### [facility] [address] [place] [address] Dr. Brea Causey Globulin (S) [Mass/Vol] 3.1 g/dL Normal [facility] Comment on above: Performed By: #### C BC #### [facility] [address] [address] [address] Brea Causey Glucose [Mass/Vol] 177 mg/dL Critically high 74-106 [facility] Comment on above: Performed By: #### C BC #### [facility] [address] [address] [address] Brea Causey Potassium [Moles/Vol] 5.2 mmol/L Critically high 3.5-5.1 [facility] Comment on above: Performed By: #### C BC #### [facility] [address] [address] [address] Brea Causey Protein [Mass/Vol] 7.1 g/dL Normal 6.4-8.2 [facility] Comment on above: Performed By: #### C BC #### [facility] [address] [place] [address] Dr. Brea Causey Sodium [Moles/Vol] 133 mmol/L Critically low 136-145 [facility] Comment on above: Performed By: #### C BC #### [facility] [address] [place] [address] Dr. Brea Causey Urea nitrogen [Mass/Vol] 12.0 mg/dL Normal 7.0-18.0 [facility] Comment on above: Performed By: #### C BC #### [facility] [address] [place] [address] Dr. Brea Causey Urea nitrogen/Creatinine [Mass ratio] 10.6 mg/mg Normal [facility] Comment on above: Performed By: #### C BC #### [facility] [address] [address] [address] Brea Causey URIC ACID SERUMon 02-01-2022 Urate [Mass/Vol] 7.7 mg/dL Critically high 3.5-7.2 [facility] Comment on above: Performed By: #### C BC #### [facility] [address] [place] [address] Dr. Brea Causey FK506 (TACROLIMUS) WHOLE BLO ODon 01-06-2022 Tacrolimus (FK506), Blood 11.4 ng/mL Normal 2.0-20.0 [facility] Comment on above: Result Comment: Trou gh (immediately following transplant) 15.0 . Trough (steady state, 2 weeks or more after transplant): 3.0 - 8.0 . Performed by LC-MS/MS technology. Performed By: #### B KVIRUS #### [facility] [address] [place] [address] Dr. Brea Causey BILIRUBIN CONJUGATED (DIRECT )on 01-04-2022 BILI, CONJUGATED 0.1 mg/dL Normal 0.0-0.2 [facility] Comment on above: Performed By: #### U CLINT, CMP, LIPID, DBIL, PHOS, MG #### [facility] [address] [place] [address] Dr. Brea Causey BOX TEST SENT OUTon 01-05-20 22 SENT TO REF LAB 01/04/2022 Normal [facility] Comment on above: Performed By: #### U CLINT, CMP, LIPID, DBIL, PHOS, MG #### [facility] [address] [place] [address] Dr. Brea Causey CBC AUTO DIFFon 01-04-2022 BASO # 0.0 103/ul Normal 0.0-0.1 [facility] Comment on above: Performed By: #### U CLINT, CMP, LIPID, DBIL, PHOS, MG #### [facility] [address] [place] [address] Dr. Brea Causey Basophils/100 WBC (Bld) 0.5 % Normal 0.2-2.0 [facility] Comment on above: Performed By: #### U CLINT, CMP, LIPID, DBIL, PHOS, MG #### [facility] [address] [place] [address] Dr. Brea Causey EO # 0.3 103/ul Normal 0.0-0.7 [facility] Comment on above: Performed By: #### U CLINT, CMP, LIPID, DBIL, PHOS, MG #### [facility] [address] [place] [address] Dr. Brea Causey Eosinophils/100 WBC (Bld) 3.9 % Normal 0.9-7.0 [facility] Comment on above: Performed By: #### U CLINT, CMP, LIPID, DBIL, PHOS, MG #### [facility] [address] [place] [address] Dr. Brea Causey Erythrocyte distribution width (RBC) [Ratio] 13.1 % Normal 11.0-15.0 [facility] Comment on above: Performed By: #### U CLINT, CMP, LIPID, DBIL, PHOS, MG #### [facility] [address] [place] [address] Dr. Brea Causey Hematocrit (Bld) [Volume fraction] 37.4 % Critically low 42.0-54.0 [facility] Comment on above: Performed By: #### U CLINT, CMP, LIPID, DBIL, PHOS, MG #### [facility] [address] [place] [address] Dr. Brea Causey Hemoglobin (Bld) [Mass/Vol] 12.0 g/dL Critically low 14.0-18.0 [facility] Comment on above: Performed By: #### U CLINT, CMP, LIPID, DBIL, PHOS, MG #### [facility] [address] [place] [address] Dr. Brea Causey IG # 0.07 10e3/ul Critically high 0.00-0.03 [facility] Comment on above: Performed By: #### U CLINT, CMP, LIPID, DBIL, PHOS, MG #### [facility] [address] [place] [address] Dr. Brea Causey IG % 1.1 % Critically high 0.0-0.5 [facility] Comment on above: Performed By: #### U CLINT, CMP, LIPID, DBIL, PHOS, MG #### [facility] [address] [place] [address] Dr. Brea Causey LYMPH # 0.8 103/ul Critically low 1.2-3.8 [facility] Comment on above: Performed By: #### U CLINT, CMP, LIPID, DBIL, PHOS, MG #### [facility] [address] [place] [address] Dr. Brea Causey Lymphocytes/100 WBC (Bld) 12.2 % Critically low 20.5-60.0 [facility] Comment on above: Performed By: #### U CLINT, CMP, LIPID, DBIL, PHOS, MG #### [facility] [address] [place] [address] Dr. Brea Causey MANUAL DIFF REQ NO Normal [facility] Comment on above: Performed By: #### U CLINT, CMP, LIPID, DBIL, PHOS, MG #### [facility] [address] [place] [address] Dr. Brea Causey MCH (RBC) [Entitic mass] 29.1 pg Normal 25.9-34.0 [facility] Comment on above: Performed By: #### U CLINT, CMP, LIPID, DBIL, PHOS, MG #### [facility] [address] [place] [address] Dr. Brea Causey MCHC (RBC) [Mass/Vol] 32.1 g/dL Normal 29.9-35.2 [facility] Comment on above: Performed By: #### U CLINT, CMP, LIPID, DBIL, PHOS, MG #### [facility] [address] [place] [address] Dr. Brea Causey MCV (RBC) [Entitic vol] 90.6 fL Normal 80.0-94.0 [facility] Comment on above: Performed By: #### U CLINT, CMP, LIPID, DBIL, PHOS, MG #### [facility] [address] [place] [address] Dr. Brea Causey MONO # 0.5 103/ul Normal 0.3-0.8 [facility] Comment on above: Performed By: #### U CLINT, CMP, LIPID, DBIL, PHOS, MG #### [facility] [address] [place] [address] Dr. Brea Causey Monocytes/100 WBC (Bld) 8.0 % Normal 1.7-12.0 [facility] Comment on above: Performed By: #### U CLINT, CMP, LIPID, DBIL, PHOS, MG #### [facility] [address] [address] [address] Brea Causey NEUT # 5.0 103/ul Normal 1.4-6.5 [facility] Comment on above: Performed By: #### U CLINT, CMP, LIPID, DBIL, PHOS, MG #### [facility] [address] [address] [address] Brea Causey Neutrophils/100 WBC (Bld) 74.3 % Normal 43.0-75.0 [facility] Comment on above: Performed By: #### U CLINT, CMP, LIPID, DBIL, PHOS, MG #### [facility] [address] [address] [address] Brea Causey Platelet mean volume (Bld) [Entitic vol] 9.5 fL Normal 9.5-13.5 [facility] Comment on above: Performed By: #### U CLINT, CMP, LIPID, DBIL, PHOS, MG #### [facility] [address] [address] [address] Brea Causey PLT 243 103/ul Normal 150-450 [facility] Comment on above: Performed By: #### U CLINT, CMP, LIPID, DBIL, PHOS, MG #### [facility] [address] [place] [address] Dr. Brea Causey RBC 4.13 106/ul Critically low 4.70-6.10 [facility] Comment on above: Performed By: #### U CLINT, CMP, LIPID, DBIL, PHOS, MG #### [facility] [address] [place] [address] Dr. Brea Causey WBC 6.7 103/ul Normal 4.0-11.0 [facility] Comment on above: Performed By: #### U CLINT, CMP, LIPID, DBIL, PHOS, MG #### [facility] [address] [place] [address] Dr. Brea Causey LIPID PROFILEon 01-04-2022 CHOL-HDL RATIO NORM SEE BELOW Normal [facility] Comment on above: Result Comment: 3.3 - 4.4 LOW RISK 4.4 - 7.1 AVERAGE RISK 7.1 - 11.0 MODERATE RISK >11.0 HIGH RISK Performed By: #### U CLINT, CMP, LIPID, DBIL, PHOS, MG #### [facility] [address] [address] [address] Brea Causey Cholesterol [Mass/Vol] 81 mg/dL Normal <=200 [facility] Comment on above: Performed By: #### U CLINT, CMP, LIPID, DBIL, PHOS, MG #### [facility] [address] [place] [address] Dr. Brea Causey Cholesterol in HDL [Mass/Vol] 43 mg/dL Normal 40-60 [facility] Comment on above: Performed By: #### U CLINT, CMP, LIPID, DBIL, PHOS, MG #### [facility] [address] [place] [address] Dr. Brea Causey Cholesterol in LDL [Mass/Vol] 26.0 mg/dL Normal [facility] Comment on above: Performed By: #### U CLINT, CMP, LIPID, DBIL, PHOS, MG #### [facility] [address] [place] [address] Dr. Brea Causey Cholesterol.total/Cho lesterol in HDL [Mass ratio] 1.9 {ratio} Normal [facility] Comment on above: Performed By: #### U CLINT, CMP, LIPID, DBIL, PHOS, MG #### [facility] [address] [place] [address] Dr. Brea Causey HDL NORMAL > or = 60 mg/dl - LO W CARDIOVASCULAR RISK <40 mg/dl - HIGH CARDIOVASCULAR RISK Normal [facility] Comment on above: Performed By: #### U CLINT, CMP, LIPID, DBIL, PHOS, MG #### [facility] [address] [place] [address] Dr. Brea Causey LDL CALC NORMAL SEE BELOW Normal [facility] Comment on above: Result Comment: <100 mg/dl OPTIMAL 100 - 129 mg/dl NEAR OR ABOVE OPTIMAL 130 - 159 mg/dl BORDERLINE HIGH 160 - 189 mg/dl HIGH >190 mg/dl VERY HIGH Performed By: #### U CLINT, CMP, LIPID, DBIL, PHOS, MG #### [facility] [address] [address] [address] Brea Causey Triglyceride [Mass/Vol] 60 mg/dL Normal <=150 [facility] Comment on above: Performed By: #### U CLINT, CMP, LIPID, DBIL, PHOS, MG #### [facility] [address] [address] [address] Brea Causey VLDL CALC 12.0 mg/dL Normal [facility] Comment on above: Performed By: #### U CLINT, CMP, LIPID, DBIL, PHOS, MG #### [facility] [address] [place] [address] Dr. Brea Causey MAGNESIUMon 01-04-2022 Magnesium [Mass/Vol] 1.4 mg/dL Critically low 1.8-2.4 [facility] Comment on above: Performed By: #### U CLINT, CMP, LIPID, DBIL, PHOS, MG #### [facility] [address] [place] [address] Dr. Brea Causey PHOSPHORUSon 01-04-2022 Phosphate [Mass/Vol] 4.4 mg/dL Normal 2.6-4.7 [facility] Comment on above: Performed By: #### U CLINT, CMP, LIPID, DBIL, PHOS, MG #### [facility] [address] [place] [address] Dr. Brea Causey PROF 14(COMP METB)on 022 Albumin [Mass/Vol] 3.9 g/dL Normal 3.4-5.0 [facility] Comment on above: Performed By: #### U CLINT, CMP, LIPID, DBIL, PHOS, MG #### [facility] [address] [place] [address] Dr. Brea Causey Albumin/Globulin [Mass ratio] 1.2 {ratio} Normal [facility] Comment on above: Performed By: #### U CLINT, CMP, LIPID, DBIL, PHOS, MG #### [facility] [address] [place] [address] Dr. Brea Causey ALP [Catalytic activity/Vol] 155 U/L Critically high 46-116 [facility] Comment on above: Performed By: #### U CLINT, CMP, LIPID, DBIL, PHOS, MG #### [facility] [address] [place] [address] Dr. Brea Causey ALT [Catalytic activity/Vol] 27 U/L Normal 16-63 [facility] Comment on above: Performed By: #### U CLINT, CMP, LIPID, DBIL, PHOS, MG #### [facility] [address] [place] [address] Dr. Brea Causey Anion gap [Moles/Vol] 14.6 mmol/L Normal [facility] Comment on above: Performed By: #### U CLINT, CMP, LIPID, DBIL, PHOS, MG #### [facility] [address] [place] [address] Dr. Brea Causey AST [Catalytic activity/Vol] 17 U/L Normal 15-37 [facility] Comment on above: Performed By: #### U CLINT, CMP, LIPID, DBIL, PHOS, MG #### [facility] [address] [place] [address] Dr. Brea Causey Bilirubin [Mass/Vol] 0.3 mg/dL Normal 0.2-1.0 [facility] Comment on above: Performed By: #### U CLINT, CMP, LIPID, DBIL, PHOS, MG #### [facility] [address] [place] [address] Dr. Brea Causey Calcium [Mass/Vol] 8.1 mg/dL Critically low 8.5-10.1 [facility] Comment on above: Performed By: #### U CLINT, CMP, LIPID, DBIL, PHOS, MG #### [facility] [address] [place] [address] Dr. Brea Causey Chloride [Moles/Vol] 99 mmol/L Normal 98-107 [facility] Comment on above: Performed By: #### U CLINT, CMP, LIPID, DBIL, PHOS, MG #### [facility] [address] [place] [address] Dr. Brea Causey CO2 [Moles/Vol] 25.0 mmol/L Normal 21.0-32.0 [facility] Comment on above: Performed By: #### U CLINT, CMP, LIPID, DBIL, PHOS, MG #### [facility] [address] [place] [address] Dr. Brea Causey Creatinine [Mass/Vol] 1.05 mg/dL Normal 0.70-1.30 [facility] Comment on above: Performed By: #### U CLINT, CMP, LIPID, DBIL, PHOS, MG #### [facility] [address] [address] [address] Brea Causey EGFR-AF LUXEMBOURGER >60 Normal >=60 [facility] Comment on above: Performed By: #### U CLINT, CMP, LIPID, DBIL, PHOS, MG #### [facility] [address] [place] [address] Dr. Brea Causey EGFR-NON AF LUXEMBOURGER >60 Normal >=60 [facility] Comment on above: Performed By: #### U CLINT, CMP, LIPID, DBIL, PHOS, MG #### [facility] [address] [place] [address] Dr. Brea Causey Globulin (S) [Mass/Vol] 3.2 g/dL Normal [facility] Comment on above: Performed By: #### U CLINT, CMP, LIPID, DBIL, PHOS, MG #### [facility] [address] [address] [address] Brea Causey Glucose [Mass/Vol] 177 mg/dL Critically high 74-106 [facility] Comment on above: Performed By: #### U CLINT, CMP, LIPID, DBIL, PHOS, MG #### [facility] [address] [address] [address] Brea Causey Potassium [Moles/Vol] 4.6 mmol/L Normal 3.5-5.1 [facility] Comment on above: Performed By: #### U CLINT, CMP, LIPID, DBIL, PHOS, MG #### [facility] [address] [place] [address] Dr. Brea Causey Protein [Mass/Vol] 7.1 g/dL Normal 6.4-8.2 [facility] Comment on above: Performed By: #### U CLINT, CMP, LIPID, DBIL, PHOS, MG #### [facility] [address] [place] [address] Dr. Brea Causey Sodium [Moles/Vol] 134 mmol/L Critically low 136-145 [facility] Comment on above: Performed By: #### U CLINT, CMP, LIPID, DBIL, PHOS, MG #### [facility] [address] [place] [address] Dr. Brea Causey Urea nitrogen [Mass/Vol] 14.0 mg/dL Normal 7.0-18.0 [facility] Comment on above: Performed By: #### U CLINT, CMP, LIPID, DBIL, PHOS, MG #### [facility] [address] [place] [address] Dr. Brea Causey Urea nitrogen/Creatinine [Mass ratio] 13.3 mg/mg Normal [facility] Comment on above: Performed By: #### U CLINT, CMP, LIPID, DBIL, PHOS, MG #### [facility] [address] [place] [address] Dr. Brea Causey URIC ACID SERUMon 01-04-2022 Urate [Mass/Vol] 7.6 mg/dL Critically high 3.5-7.2 [facility] Comment on above: Performed By: #### U CLINT, CMP, LIPID, DBIL, PHOS, MG #### [facility] [address] [place] [address] Dr. Brea Causey BK VIRUS PCR QUANTon 022 BKV DNA QUANT PCR PLASMA Negative Normal Negative [facility] Comment on above: Result Comment: No B K DNA detected. . The linear range of the assay is 22 - 100,000,000 IU/mL. Performed By: #### B KVIRUS #### [facility] [address] [place] [address] Dr. Brea Causey Log10 BKV DNA Plasma Normal [facility] Comment on above: Performed By: #### B KVIRUS #### [facility] [address] [place] [address] Dr. Brea Causey FK506 (TACROLIMUS) WHOLE BLO ODon 12-03-2021 Tacrolimus (FK506), Blood 5.6 ng/mL Normal 2.0-20.0 [facility] Comment on above: Result Comment: Trou gh (immediately following transplant) 15.0 . Trough (steady state, 2 weeks or more after transplant): 3.0 - 8.0 . Performed by LC-MS/MS technology. Performed By: #### U CLINT, CMP, LIPID, DBIL, PHOS, MG #### [facility] [address] [place] [address] Dr. Brea Causey TESTOSTERONE, FREE,DIRECT, T OTALon 12-03-2021 Free Testosterone(Direct) 7.5 pg/mL Normal 6.6-18.1 [facility] Comment on above: Result Comment: Perf ormed at: BN Performed By: #### U CLINT, CMP, LIPID, DBIL, PHOS, MG #### [facility] [address] [place] [address] Dr. Brea Causey Testosterone [Mass/Vol] 467 ng/dL Normal 264-916 [facility] Comment on above: Result Comment: Adul t male reference interval is based on a population of healthy nonobese males (BMI <30) between 19 and 39 years old. Steven et.al. JCEM 2017,102;[id number]. PMID: [id number]. Performed at: CB Performed By: #### U CLINT, CMP, LIPID, DBIL, PHOS, MG #### [facility] [address] [place] [address] Dr. Brea Causey BILIRUBIN CONJUGATED (DIRECT )on 11-30-2021 BILI, CONJUGATED 0.2 mg/dL Normal 0.0-0.2 [facility] Comment on above: Performed By: #### B KVIRUS #### [facility] [address] [place] [address] Dr. Brea Causey CBC AUTO DIFFon 11-30-2021 BASO # 0.0 103/ul Normal 0.0-0.1 [facility] Comment on above: Performed By: #### U CLINT, CMP, LIPID, DBIL, PHOS, MG #### [facility] [address] [place] [address] Dr. Brea Causey Basophils/100 WBC (Bld) 0.6 % Normal 0.2-2.0 [facility] Comment on above: Performed By: #### U CLINT, CMP, LIPID, DBIL, PHOS, MG #### [facility] [address] [place] [address] Dr. Brea Causey EO # 0.2 103/ul Normal 0.0-0.7 [facility] Comment on above: Performed By: #### U CLINT, CMP, LIPID, DBIL, PHOS, MG #### [facility] [address] [place] [address] Dr. Brea Causey Eosinophils/100 WBC (Bld) 2.7 % Normal 0.9-7.0 [facility] Comment on above: Performed By: #### U CLINT, CMP, LIPID, DBIL, PHOS, MG #### [facility] [address] [place] [address] Dr. Brea Causey Erythrocyte distribution width (RBC) [Ratio] 13.0 % Normal 11.0-15.0 [facility] Comment on above: Performed By: #### U CLINT, CMP, LIPID, DBIL, PHOS, MG #### [facility] [address] [place] [address] Dr. Brea Causey Hematocrit (Bld) [Volume fraction] 37.6 % Critically low 42.0-54.0 [facility] Comment on above: Performed By: #### U CLINT, CMP, LIPID, DBIL, PHOS, MG #### [facility] [address] [place] [address] Dr. Brea Causey Hemoglobin (Bld) [Mass/Vol] 12.4 g/dL Critically low 14.0-18.0 [facility] Comment on above: Performed By: #### U CLINT, CMP, LIPID, DBIL, PHOS, MG #### [facility] [address] [place] [address] Dr. Brea Causey IG # 0.06 10e3/ul Critically high 0.00-0.03 [facility] Comment on above: Performed By: #### U CLINT, CMP, LIPID, DBIL, PHOS, MG #### [facility] [address] [address] [address] Brea Causey IG % 0.9 % Critically high 0.0-0.5 [facility] Comment on above: Performed By: #### U CLINT, CMP, LIPID, DBIL, PHOS, MG #### [facility] [address] [address] [address] Brea Causey LYMPH # 1.0 103/ul Critically low 1.2-3.8 [facility] Comment on above: Performed By: #### U CLINT, CMP, LIPID, DBIL, PHOS, MG #### [facility] [address] [place] [address] Dr. Brea Causey Lymphocytes/100 WBC (Bld) 14.6 % Critically low 20.5-60.0 [facility] Comment on above: Performed By: #### U CLINT, CMP, LIPID, DBIL, PHOS, MG #### [facility] [address] [address] [address] Brea Causey MANUAL DIFF REQ NO Normal [facility] Comment on above: Performed By: #### U CLINT, CMP, LIPID, DBIL, PHOS, MG #### [facility] [address] [place] [address] Dr. Brea Causey MCH (RBC) [Entitic mass] 29.4 pg Normal 25.9-34.0 [facility] Comment on above: Performed By: #### U CLINT, CMP, LIPID, DBIL, PHOS, MG #### [facility] [address] [address] [address] Brea Causey MCHC (RBC) [Mass/Vol] 33.0 g/dL Normal 29.9-35.2 [facility] Comment on above: Performed By: #### U CLINT, CMP, LIPID, DBIL, PHOS, MG #### [facility] [address] [place] [address] Dr. Brea Causey MCV (RBC) [Entitic vol] 89.1 fL Normal 80.0-94.0 [facility] Comment on above: Performed By: #### U CLINT, CMP, LIPID, DBIL, PHOS, MG #### [facility] [address] [place] [address] Dr. Brea Causey MONO # 0.7 103/ul Normal 0.3-0.8 [facility] Comment on above: Performed By: #### U CLINT, CMP, LIPID, DBIL, PHOS, MG #### [facility] [address] [place] [address] Dr. Brea Causey Monocytes/100 WBC (Bld) 10.0 % Normal 1.7-12.0 [facility] Comment on above: Performed By: #### U CLINT, CMP, LIPID, DBIL, PHOS, MG #### [facility] [address] [place] [address] Dr. Brea Causey NEUT # 4.8 103/ul Normal 1.4-6.5 [facility] Comment on above: Performed By: #### U CLINT, CMP, LIPID, DBIL, PHOS, MG #### [facility] [address] [place] [address] Dr. Brea Causey Neutrophils/100 WBC (Bld) 71.2 % Normal 43.0-75.0 [facility] Comment on above: Performed By: #### U CLINT, CMP, LIPID, DBIL, PHOS, MG #### [facility] [address] [place] [address] Dr. Brea Causey Platelet mean volume (Bld) [Entitic vol] 9.0 fL Critically low 9.5-13.5 [facility] Comment on above: Performed By: #### U CLINT, CMP, LIPID, DBIL, PHOS, MG #### [facility] [address] [place] [address] Dr. Brea Causey PLT 280 103/ul Normal 150-450 [facility] Comment on above: Performed By: #### U CLINT, CMP, LIPID, DBIL, PHOS, MG #### [facility] [address] [address] [address] Brea Causey RBC 4.22 106/ul Critically low 4.70-6.10 [facility] Comment on above: Performed By: #### U CLINT, CMP, LIPID, DBIL, PHOS, MG #### [facility] [address] [address] [address] Brea Causey WBC 6.7 103/ul Normal 4.0-11.0 [facility] Comment on above: Performed By: #### U CLINT, CMP, LIPID, DBIL, PHOS, MG #### [facility] [address] [address] [address] Brea Causey GLYCOHEMOGLOBIN A1Con 2021 ADA RECOMMENDATION SEE BELOW Normal [facility] Comment on above: Result Comment: ADA RECOMMENDED LIMIT 4.0 - 6.0 ADA THERAPEUTIC TARGET < 7.0 ACTION SUGGESTED > 7.0 Performed By: #### B KVIRUS #### [facility] [address] [place] [address] Dr. Brea Causey Glucose [Mass/Vol] 171 mg/dL Normal [facility] Comment on above: Performed By: #### B KVIRUS #### [facility] [address] [place] [address] Dr. Brea Causey HbA1c (Bld) [Mass fraction] 7.6 % Critically high 4.5-6.2 [facility] Comment on above: Performed By: #### B KVIRUS #### [facility] [address] [place] [address] Dr. Brea Causey LIPID PROFILEon 11-30-2021 CHOL-HDL RATIO NORM SEE BELOW Normal [facility] Comment on above: Result Comment: 3.3 - 4.4 LOW RISK 4.4 - 7.1 AVERAGE RISK 7.1 - 11.0 MODERATE RISK >11.0 HIGH RISK Performed By: #### C BC #### [facility] [address] [place] [address] Dr. Brea Causey Cholesterol [Mass/Vol] 75 mg/dL Normal <=200 [facility] Comment on above: Performed By: #### C BC #### [facility] [address] [place], [place] [address] Dr. Brea Causey Cholesterol in HDL [Mass/Vol] 41 mg/dL Normal 40-60 [facility] Comment on above: Performed By: #### C BC #### [facility] [address] [place], [place] [address] Dr. Brea Causey Cholesterol in LDL [Mass/Vol] 18.6 mg/dL Normal [facility] Comment on above: Performed By: #### C BC #### [facility] [address] [address] [address] Brea Causey Cholesterol.total/Cho lesterol in HDL [Mass ratio] 1.8 {ratio} Normal [facility] Comment on above: Performed By: #### C BC #### [facility] [address] [address] [address] Brea Causey HDL NORMAL > or = 60 mg/dl - LO W CARDIOVASCULAR RISK <40 mg/dl - HIGH CARDIOVASCULAR RISK Normal [facility] Comment on above: Performed By: #### C BC #### [facility] [address] [address] [address] Brea Causey LDL CALC NORMAL SEE BELOW Normal [facility] Comment on above: Result Comment: <100 mg/dl OPTIMAL 100 - 129 mg/dl NEAR OR ABOVE OPTIMAL 130 - 159 mg/dl BORDERLINE HIGH 160 - 189 mg/dl HIGH >190 mg/dl VERY HIGH Performed By: #### C BC #### [facility] [address] [address] [address] Brea Causey Triglyceride [Mass/Vol] 77 mg/dL Normal <=150 [facility] Comment on above: Performed By: #### C BC #### [facility] [address] [address] [address] Brea Causey VLDL CALC 15.4 mg/dL Normal [facility] Comment on above: Performed By: #### C BC #### [facility] [address] [address] [address] Brea Causey MAGNESIUMon 11-30-2021 Magnesium [Mass/Vol] 1.4 mg/dL Critically low 1.8-2.4 [facility] Comment on above: Performed By: #### B KVIRUS #### [facility] [address] [place] [address] Dr. Brea Causey PHOSPHORUSon 11-30-2021 Phosphate [Mass/Vol] 4.1 mg/dL Normal 2.6-4.7 [facility] Comment on above: Performed By: #### C BC #### [facility] [address] [place] [address] Dr. Brea Causey PROF 14(COMP METB)on 022 Albumin [Mass/Vol] 4.2 g/dL Normal 3.4-5.0 [facility] Comment on above: Performed By: #### C BC #### [facility] [address] [place] [address] Dr. Brea Causey Albumin/Globulin [Mass ratio] 1.3 {ratio} Normal [facility] Comment on above: Performed By: #### C BC #### [facility] [address] [place] [address] Dr. Brea Causey ALP [Catalytic activity/Vol] 148 U/L Critically high 46-116 [facility] Comment on above: Performed By: #### C BC #### [facility] [address] [place] [address] Dr. Brea Causey ALT [Catalytic activity/Vol] 36 U/L Normal 16-63 [facility] Comment on above: Performed By: #### C BC #### [facility] [address] [place] [address] Dr. Brea Causey Anion gap [Moles/Vol] 14.7 mmol/L Normal [facility] Comment on above: Performed By: #### C BC #### [facility] [address] [place] [address] Dr. Brea Causey AST [Catalytic activity/Vol] 21 U/L Normal 15-37 [facility] Comment on above: Performed By: #### C BC #### [facility] [address] [place] [address] Dr. Brea Causey Bilirubin [Mass/Vol] 0.4 mg/dL Normal 0.2-1.0 [facility] Comment on above: Performed By: #### C BC #### [facility] [address] [place] [address] Dr. Brea Causey Calcium [Mass/Vol] 8.3 mg/dL Critically low 8.5-10.1 [facility] Comment on above: Performed By: #### C BC #### [facility] [address] [place] [address] Dr. Brea Causey Chloride [Moles/Vol] 98 mmol/L Normal 98-107 [facility] Comment on above: Performed By: #### C BC #### [facility] [address] [place] [address] Dr. Brea Causey CO2 [Moles/Vol] 27.2 mmol/L Normal 21.0-32.0 [facility] Comment on above: Performed By: #### C BC #### [facility] [address] [place] [address] Dr. Brea Causey Creatinine [Mass/Vol] 1.10 mg/dL Normal 0.70-1.30 [facility] Comment on above: Performed By: #### C BC #### [facility] [address] [place] [address] Dr. Brea Causey EGFR-AF LUXEMBOURGER >60 Normal >=60 [facility] Comment on above: Performed By: #### C BC #### [facility] [address] [place] [address] Dr. Brea Causey EGFR-NON AF LUXEMBOURGER >60 Normal >=60 [facility] Comment on above: Performed By: #### C BC #### [facility] [address] [place] [address] Dr. Brea Causey Globulin (S) [Mass/Vol] 3.2 g/dL Normal [facility] Comment on above: Performed By: #### C BC #### [facility] [address] [place] [address] Dr. Brea Causey Glucose [Mass/Vol] 173 mg/dL Critically high 74-106 [facility] Comment on above: Performed By: #### C BC #### [facility] [address] [address] [address] Brea Causey Potassium [Moles/Vol] 4.9 mmol/L Normal 3.5-5.1 [facility] Comment on above: Performed By: #### C BC #### [facility] [address] [address] [address] Brea Causey Protein [Mass/Vol] 7.4 g/dL Normal 6.4-8.2 [facility] Comment on above: Performed By: #### C BC #### [facility] [address] [address] [address] Brea Causey Sodium [Moles/Vol] 135 mmol/L Critically low 136-145 [facility] Comment on above: Performed By: #### C BC #### [facility] [address] [place] [address] Dr. Brea Causey Urea nitrogen [Mass/Vol] 14.0 mg/dL Normal 7.0-18.0 [facility] Comment on above: Performed By: #### C BC #### [facility] [address] [place] [address] Dr. Brea Causey Urea nitrogen/Creatinine [Mass ratio] 12.7 mg/mg Normal [facility] Comment on above: Performed By: #### C BC #### [facility] [address] [place] [address] Dr. Brea Causey URIC ACID SERUMon 11-30-2021 Urate [Mass/Vol] 7.8 mg/dL Critically high 3.5-7.2 [facility] Comment on above: Performed By: #### C BC #### [facility] [address] [place] [address] Dr. Brea Causey BNPon 11-14-2021 Natriuretic peptide B (Bld) [Mass/Vol] 350.0 pg/mL Normal <=900.0 [facility] Comment on above: Performed By: #### C BC #### [facility] [address] [place] [address] Dr. Brea Causey CBC AUTO DIFFon 11-14-2021 BASO # 0.0 103/ul Normal 0.0-0.1 [facility] Comment on above: Performed By: #### C BC #### [facility] [address] [place] [address] Dr. Brea Causey Basophils/100 WBC (Bld) 0.1 % Critically low 0.2-2.0 [facility] Comment on above: Performed By: #### C BC #### [facility] [address] [place] [address] Dr. Brea Causey EO # 0.2 103/ul Normal 0.0-0.7 [facility] Comment on above: Performed By: #### C BC #### [facility] [address] [place] [address] Dr. Brea Causey Eosinophils/100 WBC (Bld) 1.4 % Normal 0.9-7.0 [facility] Comment on above: Performed By: #### C BC #### [facility] [address] [place] [address] Dr. Brea Causey Erythrocyte distribution width (RBC) [Ratio] 13.1 % Normal 11.0-15.0 [facility] Comment on above: Performed By: #### C BC #### [facility] [address] [place] [address] Dr. Brea Causey Hematocrit (Bld) [Volume fraction] 39.4 % Critically low 42.0-54.0 [facility] Comment on above: Performed By: #### C BC #### [facility] [address] [place] [address] Dr. Brea Causey Hemoglobin (Bld) [Mass/Vol] 13.2 g/dL Critically low 14.0-18.0 [facility] Comment on above: Performed By: #### C BC #### [facility] [address] [place] [address] Dr. Brea Causey IG # 0.11 10e3/ul Critically high 0.00-0.03 [facility] Comment on above: Performed By: #### C BC #### [facility] [address] [place] [address] Dr. Brea Causey IG % 0.6 % Critically high 0.0-0.5 [facility] Comment on above: Performed By: #### C BC #### [facility] [address] [place] [address] Dr. Brea Causey LYMPH # 1.1 103/ul Critically low 1.2-3.8 [facility] Comment on above: Performed By: #### C BC #### [facility] [address] [place] [address] Dr. Brea Causey Lymphocytes/100 WBC (Bld) 6.7 % Critically low 20.5-60.0 [facility] Comment on above: Performed By: #### C BC #### [facility] [address] [place] [address] Dr. Brea Causey MANUAL DIFF REQ NO Normal [facility] Comment on above: Performed By: #### C BC #### [facility] [address] [place] [address] Dr. Brea Causey MCH (RBC) [Entitic mass] 29.5 pg Normal 25.9-34.0 [facility] Comment on above: Performed By: #### C BC #### [facility] [address] [place] [address] Dr. Brea Causey MCHC (RBC) [Mass/Vol] 33.5 g/dL Normal 29.9-35.2 [facility] Comment on above: Performed By: #### C BC #### [facility] [address] [place] [address] Dr. Brea Causey MCV (RBC) [Entitic vol] 88.1 fL Normal 80.0-94.0 [facility] Comment on above: Performed By: #### C BC #### [facility] [address] [place] [address] Dr. Brea Causey MONO # 1.5 103/ul Critically high 0.3-0.8 [facility] Comment on above: Performed By: #### C BC #### [facility] [address] [place] [address] Dr. Brea Causey Monocytes/100 WBC (Bld) 8.6 % Normal 1.7-12.0 [facility] Comment on above: Performed By: #### C BC #### [facility] [address] [address] [address] Brea Causey NEUT # 14.0 103/ul Critically high 1.4-6.5 [facility] Comment on above: Performed By: #### C BC #### [facility] [address] [place] [address] Dr. Brea Causey Neutrophils/100 WBC (Bld) 82.6 % Critically high 43.0-75.0 [facility] Comment on above: Performed By: #### C BC #### [facility] [address] [place] [address] Dr. Brea Causey Platelet mean volume (Bld) [Entitic vol] 9.5 fL Normal 9.5-13.5 [facility] Comment on above: Performed By: #### C BC #### [facility] [address] [place] [address] Dr. Brea Causey PLT 303 103/ul Normal 150-450 [facility] Comment on above: Performed By: #### C BC #### [facility] [address] [place] [address] Dr. Brea Causey RBC 4.47 106/ul Critically low 4.70-6.10 [facility] Comment on above: Performed By: #### C BC #### [facility] [address] [place] [address] Dr. Brea Causey WBC 17.0 103/ul Critically high 4.0-11.0 [facility] Comment on above: Performed By: #### C BC #### [facility] [address] [place] [address] Dr. Brea Causey Covid-19 PCR ([facility])on SARS-CoV-2 (COVID-19) RNA ISI+probe Ql (Unsp spec) Not detected Normal NOT DETECTED [facility] Comment on above: Result Comment: When [...] for this test is supported by the [place] of Health and Human Service's declaration that [...] CLINT, CMP, LIPID, DBIL, PHOS, MG #### [facility] [address] [place] [address] Dr. Brea Causey ER URINE PROFILEon 2 Bilirubin Ql (U) Negative Normal NEGATIVE [facility] Comment on above: Performed By: #### U CLINT, CMP, LIPID, DBIL, PHOS, MG #### [facility] [address] [place] [address] Dr. Brea Causey Clarity (U) CLEAR Normal CLEAR [facility] Comment on above: Performed By: #### U CLINT, CMP, LIPID, DBIL, PHOS, MG #### [facility] [address] [place] [address] Dr. Brea Causey Color (U) YELLOW Normal YELLOW [facility] Comment on above: Performed By: #### U CLINT, CMP, LIPID, DBIL, PHOS, MG #### [facility] [address] [place] [address] Dr. Brea Causey ERUAHD A micrscopic examination will be performed if indicated. Normal [facility] Comment on above: Performed By: #### U CLINT, CMP, LIPID, DBIL, PHOS, MG #### [facility] [address] [place] [address] Dr. Brea Causey Glucose Ql (U) Negative Normal NEGATIVE [facility] Comment on above: Performed By: #### U CLINT, CMP, LIPID, DBIL, PHOS, MG #### [facility] [address] [address] [address] Brea Causey Hemoglobin Ql (U) Negative Normal NEGATIVE [facility] Comment on above: Performed By: #### U CLINT, CMP, LIPID, DBIL, PHOS, MG #### [facility] [address] [address] [address] Brea Causey Ketones Ql (U) Negative Normal NEGATIVE [facility] Comment on above: Performed By: #### U CLINT, CMP, LIPID, DBIL, PHOS, MG #### [facility] [address] [address] [address] Brea Causey LEUKOCYTES Negative Normal NEGATIVE [facility] Comment on above: Performed By: #### U CLINT, CMP, LIPID, DBIL, PHOS, MG #### [facility] [address] [address] [address] Brea Causey Nitrite Ql (U) Negative Normal NEGATIVE [facility] Comment on above: Performed By: #### U CLINT, CMP, LIPID, DBIL, PHOS, MG #### [facility] [address] [address] [address] Brea Causey pH (U) 6.0 [pH] Normal 5-9 [facility] Comment on above: Performed By: #### U CLINT, CMP, LIPID, DBIL, PHOS, MG #### [facility] [address] [address] [address] Brea Causey SPEC GRAVITY <=1.005 Abnormal 1.005-<=1.025 [facility] Comment on above: Performed By: #### U CLINT, CMP, LIPID, DBIL, PHOS, MG #### [facility] [address] [address] [address] Brea Causey UA PROTEIN Negative Normal NEGATIVE/ TRACE [facility] Comment on above: Performed By: #### U CLINT, CMP, LIPID, DBIL, PHOS, MG #### [facility] [address] [address] [address] Brea Causey UR MICRO IND NOT INDICATED Normal [facility] Comment on above: Performed By: #### U CLINT, CMP, LIPID, DBIL, PHOS, MG #### [facility] [address] [address] [address] Brea Causey Urobilinogen Qn (U) 0.2 {Sabine'U}/dL Normal 0.2 - 1. 0 [facility] Comment on above: Performed By: #### U CLINT, CMP, LIPID, DBIL, PHOS, MG #### [facility] [address] [address] [address] Brea Causey GI PANEL (PCR)on 11-14-2021 Adenovirus F 40/41 Not detected Normal NOT DETECTED [facility] Comment on above: Performed By: #### U CLINT, CMP, LIPID, DBIL, PHOS, MG #### [facility] [address] [address] [address] Brea Causey Astrovirus Not detected Normal NOT DETECTED [facility] Comment on above: Performed By: #### U CLINT, CMP, LIPID, DBIL, PHOS, MG #### [facility] [address] [address] [address] Brea Causey C. Diff toxin A/B Not detected Normal NOT DETECTED [facility] Comment on above: Performed By: #### U CLINT, CMP, LIPID, DBIL, PHOS, MG #### [facility] [address] [place] [address] Dr. Brea Causey Campylobacter Not detected Normal NOT DETECTED [facility] Comment on above: Performed By: #### U CLINT, CMP, LIPID, DBIL, PHOS, MG #### [facility] [address] [address] [address] Brea Causey Cryptosporidium Not detected Normal NOT DETECTED [facility] Comment on above: Performed By: #### U CLINT, CMP, LIPID, DBIL, PHOS, MG #### [facility] [address] [address] [address] Brea Causey Cyclos. Cayetanensis Not detected Normal NOT DETECTED [facility] Comment on above: Performed By: #### U CLINT, CMP, LIPID, DBIL, PHOS, MG #### [facility] [address] [address] [address] Brea Causey E. Coli O157 Not Applicable Normal Not Applicable [facility] Comment on above: Performed By: #### U CLINT, CMP, LIPID, DBIL, PHOS, MG #### [facility] [address] [address] [address] Brea Causey E. histolytica Not detected Normal NOT DETECTED [facility] Comment on above: Performed By: #### U CLINT, CMP, LIPID, DBIL, PHOS, MG #### [facility] [address] [address] [address] Brea Causey EAEC Not detected Normal NOT DETECTED [facility] Comment on above: Performed By: #### U CLINT, CMP, LIPID, DBIL, PHOS, MG #### [facility] [address] [address] [address] Brea Causey EIEC Not detected Normal NOT DETECTED [facility] Comment on above: Performed By: #### U CLINT, CMP, LIPID, DBIL, PHOS, MG #### [facility] [address] [address] [address] Brea Causey EPEC Not detected Normal NOT DETECTED [facility] Comment on above: Performed By: #### U CLINT, CMP, LIPID, DBIL, PHOS, MG #### [facility] [address] [address] [address] Brea Causey ETEC Not detected Normal NOT DETECTED [facility] Comment on above: Performed By: #### U CLINT, CMP, LIPID, DBIL, PHOS, MG #### [facility] [address] [address] [address] Brea Causey G. Lamblia Not detected Normal NOT DETECTED [facility] Comment on above: Performed By: #### U CLINT, CMP, LIPID, DBIL, PHOS, MG #### [facility] [address] [address] [address] Brea Causey GIPANEL CONTROLS PASSED Normal [facility] Comment on above: Performed By: #### U CLINT, CMP, LIPID, DBIL, PHOS, MG #### [facility] [address] [address] [address] Brea HERNANDEZ HEADER GI PANEL BACTERIA Normal [facility] Comment on above: Performed By: #### U CLINT, CMP, LIPID, DBIL, PHOS, MG #### [facility] [address] [address] [address] Brea PINTO ECOLI GI PANEL DIARRHEAGENIC E.COLI / SHIGELLA Normal [facility] Comment on above: Performed By: #### U CLINT, CMP, LIPID, DBIL, PHOS, MG #### [facility] [address] [place] [address] Dr. Brea PINTO INFO SEE BELOW [facility] Comment on above: Result Comment: EAEC - Enteroaggregative E. Coli EPEC- Enteropathogenic E. Coli ETEC- Enterotoxigenic E. Coli lt/st STEC- Shigella-like toxin-producing E. Coli stx1/stx2 EIEC- Shigella/Enteroinvasive E. Coli Performed By: #### U CLINT, CMP, LIPID, DBIL, PHOS, MG #### [facility] [address] [place] [address] Dr. Brea PINTO PARASITES GI PANEL PARASITES Normal [facility] Comment on above: Performed By: #### U CLINT, CMP, LIPID, DBIL, PHOS, MG #### [facility] [address] [place] [address] Dr. Brea PINTO VIRUS GI PANEL VIRUSES Normal [facility] Comment on above: Performed By: #### U CLINT, CMP, LIPID, DBIL, PHOS, MG #### [facility] [address] [place] [address] Dr. Brea Causey Norovirus GI/GII Not detected Normal NOT DETECTED [facility] Comment on above: Performed By: #### U CLINT, CMP, LIPID, DBIL, PHOS, MG #### [facility] [address] [place] [address] Dr. Brea Causey P. Shigelloides Not detected Normal NOT DETECTED [facility] Comment on above: Performed By: #### U CLINT, CMP, LIPID, DBIL, PHOS, MG #### [facility] [address] [address] [address] Brea Causey Rotavirus A Not detected Normal NOT DETECTED [facility] Comment on above: Performed By: #### U CLINT, CMP, LIPID, DBIL, PHOS, MG #### [facility] [address] [place] [address] Dr. Brea Causey Salmonella Not detected Normal NOT DETECTED [facility] Comment on above: Performed By: #### U CLINT, CMP, LIPID, DBIL, PHOS, MG #### [facility] [address] [place] [address] Dr. Brea Causey Sapovirus Not detected Normal NOT DETECTED [facility] Comment on above: Performed By: #### U CLINT, CMP, LIPID, DBIL, PHOS, MG #### [facility] [address] [place] [address] Dr. Brea Causey STEC Not detected Normal NOT DETECTED [facility] Comment on above: Performed By: #### U CLINT, CMP, LIPID, DBIL, PHOS, MG #### [facility] [address] [place] [address] Dr. Brea Causey Vibrio Not detected Normal NOT DETECTED [facility] Comment on above: Performed By: #### U CLINT, CMP, LIPID, DBIL, PHOS, MG #### [facility] [address] [place] [address] Dr. Brea Causey Vibrio Cholera Not detected Normal NOT DETECTED [facility] Comment on above: Performed By: #### U CLINT, CMP, LIPID, DBIL, PHOS, MG #### [facility] [address] [place] [address] Dr. Brea Causey Y. Enterocolitica Not detected Normal NOT DETECTED [facility] Comment on above: Performed By: #### U CLINT, CMP, LIPID, DBIL, PHOS, MG #### [facility] [address] [place] [address] Dr. Brea Causey PROF 14(COMP METB)on 022 Albumin [Mass/Vol] 4.0 g/dL Normal 3.4-5.0 [facility] Comment on above: Performed By: #### C BC #### [facility] [address] [place] [address] Dr. Brea Causey Albumin/Globulin [Mass ratio] 1.3 {ratio} Normal [facility] Comment on above: Performed By: #### C BC #### [facility] [address] [place] [address] Dr. Brea Causey ALP [Catalytic activity/Vol] 142 U/L Critically high 46-116 [facility] Comment on above: Performed By: #### C BC #### [facility] [address] [place] [address] Dr. Brea Causey ALT [Catalytic activity/Vol] 39 U/L Normal 16-63 [facility] Comment on above: Performed By: #### C BC #### [facility] [address] [place] [address] Dr. Brea Causey Anion gap [Moles/Vol] 13.6 mmol/L Normal [facility] Comment on above: Performed By: #### C BC #### [facility] [address] [place] [address] Dr. Brea Causey AST [Catalytic activity/Vol] 23 U/L Normal 15-37 [facility] Comment on above: Performed By: #### C BC #### [facility] [address] [place] [address] Dr. Brea Causey Bilirubin [Mass/Vol] 0.4 mg/dL Normal 0.2-1.0 [facility] Comment on above: Performed By: #### C BC #### [facility] [address] [place] [address] Dr. Brea Causey Calcium [Mass/Vol] 8.4 mg/dL Critically low 8.5-10.1 [facility] Comment on above: Performed By: #### C BC #### [facility] [address] [place] [address] Dr. Brea Causey Chloride [Moles/Vol] 97 mmol/L Critically low 98-107 [facility] Comment on above: Performed By: #### C BC #### [facility] [address] [place] [address] Dr. Brea Causey CO2 [Moles/Vol] 26.1 mmol/L Normal 21.0-32.0 [facility] Comment on above: Performed By: #### C BC #### [facility] [address] [place] [address] Dr. Brea Causey Creatinine [Mass/Vol] 1.21 mg/dL Normal 0.70-1.30 [facility] Comment on above: Performed By: #### C BC #### [facility] [address] [place] [address] Dr. Brea Causey EGFR-AF LUXEMBOURGER >60 Normal >=60 [facility] Comment on above: Performed By: #### C BC #### [facility] [address] [place] [address] Dr. Brea Causey EGFR-NON AF LUXEMBOURGER 59 mL/min/1.73m2 Critically low >=60 [facility] Comment on above: Performed By: #### C BC #### [facility] [address] [place] [address] Dr. Brea Causey Globulin (S) [Mass/Vol] 3.2 g/dL Normal [facility] Comment on above: Performed By: #### C BC #### [facility] [address] [place] [address] Dr. Brea Causey Glucose [Mass/Vol] 227 mg/dL Critically high 74-106 [facility] Comment on above: Performed By: #### C BC #### [facility] [address] [place] [address] Dr. Brea Causey Potassium [Moles/Vol] 4.7 mmol/L Normal 3.5-5.1 [facility] Comment on above: Performed By: #### C BC #### [facility] [address] [place] [address] Dr. Brea Causey Protein [Mass/Vol] 7.2 g/dL Normal 6.4-8.2 [facility] Comment on above: Performed By: #### C BC #### [facility] [address] [address] [address] Brea Causey Sodium [Moles/Vol] 132 mmol/L Critically low 136-145 [facility] Comment on above: Performed By: #### C BC #### [facility] [address] [place], [place] [address] Dr. Brea Causey Urea nitrogen [Mass/Vol] 12.0 mg/dL Normal 7.0-18.0 [facility] Comment on above: Performed By: #### C BC #### [facility] [address] [address] [address] Brea Causey Urea nitrogen/Creatinine [Mass ratio] 9.9 mg/mg Normal [facility] Comment on above: Performed By: #### C BC #### [facility] [address] [address] [address] Brea Causey CBC W/DIFFon 10-31-2021 ABS IMM GRANS 0.1 10*3/uL Normal 0.0-0.2 [facility] Comment on above: Performed By: #### 4 [id number], [id number], [id number], [id number], [id number] #### [facility] [address] [place] [address], [facility] ABS NEUTROPHILS 5.9 10*3/uL Normal 1.6-7.6 [facility] Comment on above: Performed By: #### 4 [id number], [id number], [id number], [id number], [id number], [id number] #### [facility] [address] [place] [address], [place] Basophils (Bld) [#/Vol] 0.0 10*3/uL Normal 0.0-0.2 [facility] Comment on above: Performed By: #### 4 5506, 79993, 46296, 88231, 74137, 62221 #### [facility] [place] [address] [place] [address], [place] Basophils/100 WBC (Bld) 0.3 % Normal 0.0-1.0 [facility] Comment on above: Performed By: #### 4 5506, 41057, 13302, 76044, 81987, 56837 #### [facility] [place] [address] [place] [address], [facility] Eosinophils (Bld) [#/Vol] 0.2 10*3/uL Normal 0.0-0.5 [facility] Comment on above: Performed By: #### 4 5506, 50497, 70543, 98672, 25146, 56054 #### [facility] [place] [address] [place] [address], [facility] Eosinophils/100 WBC (Bld) 2.3 % Normal 0.0-6.0 [facility] Comment on above: Performed By: #### 4 5506, 49428, 17664, 37124, 73036, 01296 #### [facility] [place] [address] Erythrocyte distribution width (RBC) [Ratio] 13.4 % Normal 11.5-15.0 [facility] Comment on above: Performed By: #### 4 5506, 93132, 17571, 28703, 85647, 19752 #### [facility] [place] [address] [place] [address], [facility] Hematocrit (Bld) [Volume fraction] 36.1 % Low 39.0-50.0 [facility] Comment on above: Performed By: #### 4 5506, 07928, 93437, 82775, 16738, 08053 #### [facility] [place] [address] [place] [id number], [facility] Hemoglobin (Bld) [Mass/Vol] 11.9 g/dL Low 13.0-17.0 [facility] Comment on above: Performed By: #### 4 5506, 05877, 76331, 64980, 22070, 93024 #### [facility] [place] [address] [facility] [place] [address] IMMATURE GRANS 0.7 % Normal 0.0-1.0 [facility] Comment on above: Performed By: #### 4 5506, 34872, 57116, 64126, 25064, 22360 #### [facility] [place] [address] [facility] [place] [address], [facility] Lymphocytes (Bld) [#/Vol] 0.9 10*3/uL Low 1.2-4.0 [facility] Comment on above: Performed By: #### 4 5506, 44748, 99309, 94954, 26729, 52014 #### [facility] [place] [address] Lymphocytes/100 WBC (Bld) 12.1 % Low 20.0-45.0 [facility] Comment on above: Performed By: #### 4 5506, 87342, 55808, 25667, 63974, 47319 #### [facility] [place] [address] [facility]. [address] MCH (RBC) [Entitic mass] 29.3 pg Normal 27.0-33.0 [facility] Comment on above: Performed By: #### 4 5506, 78762, 14668, 86220, 13422, 64985 #### [facility] [place] [address] [facility]. [address] MCHC (RBC) [Mass/Vol] 33.0 g/dL Normal 32.0-35.0 [facility] Comment on above: Performed By: #### 4 5506, 50059, 77256, 23011, 70135, 12398 #### [facility] [place] [address] [facility] [place] [address], [facility] MCV (RBC) [Entitic vol] 88.9 fL Normal 82.0-98.0 [facility] Comment on above: Performed By: #### 4 5506, 95970, 14285, 60792, 69377, 53020 #### [facility] [place] [address] [facility] [address], [facility] Monocytes (Bld) [#/Vol] 0.6 10*3/uL Normal 0.1-1.0 [facility] Comment on above: Performed By: #### 4 5506, 59155, 05717, 43891, 32160, 98126 #### [facility] [place] [address] [facility]. [address] MONOS 8.3 % Normal 5.0-12.0 [facility] Comment on above: Performed By: #### 4 5506, 13432, 30946, 48732, 17702, 02497 #### [facility] [place] [address] [facility]. [address] Neutrophils/100 WBC (Bld) 76.3 % High 40.0-72.0 [facility] Comment on above: Performed By: #### 4 5506, 19840, 16307, 18276, 15841, 07907 #### [facility] [place] [address] [facility]. [address] Nucleated RBC/100 WBC (Bld) [Ratio] 0 % Normal 0-0 [facility] Comment on above: Performed By: #### 4 5506, 41971, 65381, 25848, 47214, 34219 #### [facility] [place] [address] [facility] [place] [address], [facility] PLAT CNT 260 10*3/uL Normal 150-400 [facility] Comment on above: Performed By: #### 4 5506, 63255, 44131, 10525, 76778, 91369 #### [facility] [place] [address] [facility]. [address] RBC (Bld) [#/Vol] 4.06 10*6/uL Low 4.20-5.70 [facility] Comment on above: Performed By: #### 4 5506, 84915, 69251, 14902, 92816, 39848 #### [facility] [place] [address] [place] [address], [facility] WBC (Bld) [#/Vol] 7.68 10*3/uL Normal 4.00-10.60 [facility] Comment on above: Performed By: #### 4 5506, 89736, 00292, 75397, 40892, 18241 #### [facility] [place] [address] COMP METABOLIC PANELon 10-31 Albumin [Mass/Vol] 4.4 g/dL Normal 3.5-5.7 [facility] Comment on above: Performed By: #### 4 5506, 24886, 37909, 01293, 67200, 33245 #### [facility] [place] [address] ALKALINE PHOSPH 132 IU/L High 34-104 [facility] Comment on above: Performed By: #### 4 5506, 30112, 99582, 77481, 39397, 38873 #### [facility] [place] [address] ALT [Catalytic activity/Vol] 26 U/L Normal 7-52 [facility] Comment on above: Performed By: #### 4 5506, 81474, 20938, 97664, 84104, 60384 #### [facility] [place] [address] AST [Catalytic activity/Vol] 17 U/L Normal 13-39 [facility] Comment on above: Performed By: #### 4 5506, 51814, 33728, 77232, 53996, 02422 #### [facility] [place] [address] [place] [address], [facility] Bilirubin [Mass/Vol] 0.4 mg/dL Normal 0.3-1.0 [facility] Comment on above: Performed By: #### 4 5506, 96949, 12437, 61141, 32154, 89413 #### [facility] [place] [address] [place] [address], [place] Calcium [Mass/Vol] 8.6 mg/dL Normal 8.6-10.3 [facility] Comment on above: Performed By: #### 4 5506, 63416, 42945, 77713, 97443, 73982 #### [facility] [place] [address] [place] [address], [place] Chloride [Moles/Vol] 97 mmol/L Low 98-107 [facility] Comment on above: Performed By: #### 4 5506, 75295, 24731, 61722, 42607, 68029 #### [facility] [place] [address] [place] [address], [place] CO2 [Moles/Vol] 26 mmol/L Normal 21-31 [facility] Comment on above: Performed By: #### 4 5506, 81374, 16934, 16190, 08346, 38566 #### [facility] [place] [address] [place] [address], [place] Creatinine [Mass/Vol] 1.04 mg/dL Normal 0.70-1.30 [facility] Comment on above: Performed By: #### 4 5506, 41513, 26790, 42769, 31732, 01009 #### [facility] [place] [address] [place] [address], [place] GFR/1.73 sq M.predicted among blacks MDRD (S/P/Bld) [Vol rate/Area] mL/min/{1.73_m2} Normal >60 [facility] Comment on above: Performed By: #### 4 5506, 72386, 32689, 28033, 57705, 46159 #### [facility] [place] [address] [place] [address], [place] GFR/1.73 sq M.predicted among non-blacks MDRD (S/P/Bld) [Vol rate/Area] mL/min/{1.73_m2} Normal >60 [facility] Comment on above: Performed By: #### 4 5506, 73650, 29545, 34619, 14917, 68883 #### [facility] [place] [address] [place] [address], [place] Glucose [Mass/Vol] 158 mg/dL High 70-100 [facility] Comment on above: Performed By: #### 4 5506, 36446, 87979, 14229, 10578, 66156 #### [facility] [place] [address] [place] [address], [place] Potassium [Moles/Vol] 4.4 mmol/L Normal 3.5-5.1 [facility] Comment on above: Performed By: #### 4 5506, 93689, 00524, 78403, 72918, 45298 #### [facility] [place] [address] [place] [address], [place] Protein [Mass/Vol] 6.6 g/dL Normal 6.0-8.3 [facility] Comment on above: Performed By: #### 4 5506, 06290, 42391, 57341, 57965, 45025 #### [facility] [place] [address] [place] [address], [place] Sodium [Moles/Vol] 131 mmol/L Low 136-145 [facility] Comment on above: Performed By: #### 4 5506, 41565, 73388, 56254, 49918, 57281 #### [facility] [place] [address] [place] [address], [place] Urea nitrogen [Mass/Vol] 15 mg/dL Normal 7-25 [facility] Comment on above: Performed By: #### 4 5506, 33209, 67907, 81081, 01352, 20234 #### [facility] [place] [address] [place] [address], [place] DIRECT BILIon 06-22-2022 Bilirubin.direct [Mass/Vol] 0.1 mg/dL Normal 0.0-0.2 [facility] Comment on above: Performed By: #### 4 5506, 79302, 38750, 52207, 42821, 52861 #### [facility] [place] [address] [place] [address], [facility] LIPID PROFILEon 10-31-2021 Cholesterol [Mass/Vol] 70 mg/dL Low 120-200 [facility] Comment on above: Result Comment: CHOL ESTEROL REFERENCE RANGE: 20 YEARS AND OLDER CARDIOVASCULAR RISK Less than 200 mg/dl Low Risk 200 to 239 mg/dl Borderline Risk 240 mg/dl and greater High Risk Performed By: #### 4 5506, 91397, 37499, 10522, 30613, 19098 #### [facility] [place] [address] [place] [address], [facility] Cholesterol in HDL [Mass/Vol] 35 mg/dL Normal 23-92 [facility] Comment on above: Result Comment: Slig ht variation in normal range could be due to gender and/or age. HDL CHOLESTEROL REFERENCE RANGE: 20 years and older Cardiovascular Risk > or =60 mg/dL Desirable 40 TO 59 mg/dL Low Risk <40 mg/dL High Risk Performed By: #### 4 5506, 52112, 92064, 69083, 61349, 90955 #### [facility] [place] [address] [place] [address], [facility] Cholesterol in LDL [Mass/Vol] 20 mg/dL Normal 0-130 [facility] Comment on above: Result Comment: LDL IS A CALCULATION LDL IS ONLY VALID IF THE TRIG IS LESS THAN 400. Performed By: #### 4 5506, 67977, 99263, 32445, 73408, 11697 #### [facility] [place] [address] [place] [address], [facility] Cholesterol.total/Cho lesterol in HDL [Mass ratio] 2.0 {ratio} Normal .0-4.5 [facility] Comment on above: Performed By: #### 4 5506, 88982, 97015, 17099, 08401, 10810 #### [facility] [place] [address] NON-HDL CHOLESTEROL 35 mg/dL Normal [facility] Comment on above: Performed By: #### 4 5506, 46692, 47061, 17971, 52726, 81682 #### [facility] [place] [address] Triglyceride [Mass/Vol] 73 mg/dL Normal 40-149 [facility] Comment on above: Result Comment: TRIG LYCERIDE REFERENCE RANGE: 20 YEARS AND OLDER CARDIOVASCULAR RISK LESS THAN 150 mg/dl LOW RISK 150 TO 199 mg/dl BORDERLINE RISK 200 mg/dl AND GREATER HIGH RISK Performed By: #### 4 5506, 83391, 52033, 23261, 98204, 30234 #### [facility] [place] [address] VLDL CHOL 15 mg/dL Normal 0-40 [facility] Comment on above: Performed By: #### 4 5506, 76090, 02976, 53305, 27893, 06851 #### [facility] [place] [address] [facility] [address] MAGNESIUM BLOODon 10-31-2021 Magnesium [Mass/Vol] 1.1 mg/dL Critically low 1.9-2.7 [facility] Comment on above: Performed By: #### 4 5506, 92209, 54776, 97358, 79542, 38878 #### [facility] [place] [address] [place] [address], [facility] PHOSPHORUS BLOODon 2 Phosphate [Mass/Vol] 3.0 mg/dL Normal 2.5-5.0 [facility] Comment on above: Performed By: #### 4 5506, 91870, 71530, 14626, 35924, 81719 #### [facility] [place] [address] PROSPERAon 10-31-2021 PROSPERA KIT Results to be mailed directly to physician's office by reference lab. Normal [facility] Comment on above: Result Comment: Test performed by [id number] [place] [id number] Specimen collected for transplant patient and sent to [facility] per Dr instructions. No charge. No result expected. For billing and tracking purposes only. Performed By: #### 4 5506, 02373, 73773, 45850, 93492, 30017 #### [facility] [place] [address] RESULT Results to be mailed directly to physician's office by reference lab. Normal [facility] Comment on above: Performed By: #### 4 5506, 96127, 18844, 65692, 01653, 68948 #### [facility] [place] [address] [facility]. [address] TACROLIMUSon 10-31-2021 Tacrolimus (Bld) [Mass/Vol] 7.6 ng/mL Normal 5.0-20.0 [facility] Comment on above: Result Comment: The [employer] Tacrolimus assay is a delayed one-step immunoassay for the quantitative determination of tacrolimus in human whole blood using the chemiluminescent microparticle immunoassay (CMIA) technology with flexible assay protocols, referred to as Chemiflex. Performed By: #### 4 5506, 25445, 35171, 60836, 40353, 73628 #### [facility] [place] [address] [facility] [place] [address], [facility] URIC ACID BLOODon 10-31-2021 Urate [Mass/Vol] 7.8 mg/dL High 4.4-7.6 [facility] Comment on above: Performed By: #### 4 5506, 16800, 21420, 43070, 10224, 31494 #### [facility] [place] [address] [place] [address], [facility] NM PARATHYROID WITH SPECT AN D CTon 07-24-2021 NM PARATHYROID WITH SPECT AND CT [facility] Department of Radiology [address] [place] [address] Patient Name: WM SUAREZ : 1950 Sex: M Age: Race: White Pt. Location: 20 Patient Status: D Ordered Date: 06/26/2021 8:40:00 AM Completed Date: 07/24/2021 01:21 PM Requesting Provider: NAGA BOSCH Attending Provider: NAGA BOSCH Report Copy To: JERICHO MCCARTHY Signs & Symptoms: E21.3 Hyperparathyroidism, unspecified I10 History: Drake NPC Req. per [facility] A/B for CPT 20356 *SLA Comments: , , , Ordering Provider [...] SPECT. Electronically signed: Nan Earl. Transcribed by: [email or web address], User Resident: Electronically Signed by: NAN EARL @ 07/27/2021 12:13 PM Normal [facility] Comment on above: Order Comment: , , = ========= , Ordering Provider - NAGA BOSCH MD , CBC W/DIFFon 06-22-2021 ABS IMM GRANS 0.1 10*3/uL Normal 0.0-0.2 [facility] Comment on above: Performed By: #### 4 5506, 69278, 91321, 49064, 41133, 63368 #### [facility] [place] [address] ABS NEUTROPHILS 4.7 10*3/uL Normal 1.6-7.6 [facility] Comment on above: Performed By: #### 4 5506, 20460, 85999, 12428, 59880, 09615 #### [facility] [place] [address] [facility] [place] [address], [facility] Basophils (Bld) [#/Vol] 0.0 10*3/uL Normal 0.0-0.2 [facility] Comment on above: Performed By: #### 4 5506, 64127, 80971, 87362, 91980, 07885 #### [facility] [place] [address] [facility] [address] Basophils/100 WBC (Bld) 0.6 % Normal 0.0-1.0 [facility] Comment on above: Performed By: #### 4 5506, 35675, 38234, 14956, 09255, 36109 #### [facility] [place] [address] [place] [address], [facility] Eosinophils (Bld) [#/Vol] 0.2 10*3/uL Normal 0.0-0.5 [facility] Comment on above: Performed By: #### 4 5506, 70909, 56242, 47672, 51364, 95510 #### [facility] [place] [address] [place] [address], [facility] Eosinophils/100 WBC (Bld) 2.5 % Normal 0.0-6.0 [facility] Comment on above: Performed By: #### 4 5506, 71785, 77247, 58711, 42391, 05780 #### [facility] [place] [address] [place] [address], [facility] Erythrocyte distribution width (RBC) [Ratio] 13.6 % Normal 11.5-15.0 [facility] Comment on above: Performed By: #### 4 5506, 11903, 49028, 67679, 56880, 03538 #### [facility] [place] [address] [place] [address], [facility] Hematocrit (Bld) [Volume fraction] 36.3 % Low 39.0-50.0 [facility] Comment on above: Performed By: #### 4 5506, 75749, 07961, 16400, 35413, 30963 #### [facility] [place] [address] [place] [address], [facility] Hemoglobin (Bld) [Mass/Vol] 11.7 g/dL Low 13.0-17.0 [facility] Comment on above: Performed By: #### 4 5506, 71007, 09317, 40925, 34249, 33739 #### [facility] [place] [address] [facility] [address], [facility] IMMATURE GRANS 0.8 % Normal 0.0-1.0 [facility] Comment on above: Performed By: #### 4 5506, 58889, 63211, 23619, 52477, 78644 #### [facility] [place] [address] [facility] [place] [address], [facility] Lymphocytes (Bld) [#/Vol] 0.9 10*3/uL Low 1.2-4.0 [facility] Comment on above: Performed By: #### 4 5506, 07009, 86267, 55095, 77366, 66228 #### [facility] [place] [address] [facility] [place] [address], [facility] Lymphocytes/100 WBC (Bld) 13.6 % Low 20.0-45.0 [facility] Comment on above: Performed By: #### 4 5506, 83922, 06189, 64040, 96682, 02178 #### [facility] [place] [address] [facility] [place] [address], [facility] MCH (RBC) [Entitic mass] 28.6 pg Normal 27.0-33.0 [facility] Comment on above: Performed By: #### 4 5506, 21006, 75648, 10618, 55718, 27254 #### [facility] [place] [address] [facility] [place] [address], [facility] MCHC (RBC) [Mass/Vol] 32.2 g/dL Normal 32.0-35.0 [facility] Comment on above: Performed By: #### 4 5506, 89866, 59266, 17818, 83072, 15246 #### [facility] [place] [address] [facility] [place] [address], [facility] MCV (RBC) [Entitic vol] 88.8 fL Normal 82.0-98.0 [facility] Comment on above: Performed By: #### 4 5506, 61085, 04499, 46467, 10742, 73263 #### [facility] [place] [address] [facility] [place] [address], [facility] Monocytes (Bld) [#/Vol] 0.6 10*3/uL Normal 0.1-1.0 [facility] Comment on above: Performed By: #### 4 5506, 87640, 81867, 02327, 76692, 78514 #### [facility] [place] [address] [facility] [place] [address], [facility] MONOS 9.6 % Normal 5.0-12.0 [facility] Comment on above: Performed By: #### 4 5506, 46974, 42528, 77790, 98736, 28915 #### [facility] [place] [address] [facility]. [address] Neutrophils/100 WBC (Bld) 72.9 % High 40.0-72.0 [facility] Comment on above: Performed By: #### 4 5506, 37129, 66571, 27160, 98179, 56650 #### [facility] [place] [address] [facility] [place] [address], [facility] Nucleated RBC/100 WBC (Bld) [Ratio] 0 % Normal 0-0 [facility] Comment on above: Performed By: #### 4 5506, 34594, 61937, 48983, 04954, 56310 #### [facility] [place] [address] [facility] [place] [address], [facility] PLAT CNT 263 10*3/uL Normal 150-400 [facility] Comment on above: Performed By: #### 4 5506, 21051, 77448, 58100, 98595, 40840 #### [facility] [place] [address] [facility] [place] [address], [facility] RBC (Bld) [#/Vol] 4.09 10*6/uL Low 4.20-5.70 [facility] Comment on above: Performed By: #### 4 5506, 33799, 91749, 95391, 88191, 56701 #### [facility] [place] [address] [place] [address], [facility] WBC (Bld) [#/Vol] 6.45 10*3/uL Normal 4.00-10.60 [facility] Comment on above: Performed By: #### 4 5506, 52507, 18081, 44089, 48658, 91626 #### [facility] [place] [address] COMP METABOLIC PANELon 06-22 Albumin [Mass/Vol] 4.3 g/dL Normal 3.5-5.7 [facility] Comment on above: Performed By: #### 4 5506, 87073, 21064, 07089, 81634, 32045 #### [facility] [place] [address] [place] [address], [facility] ALKALINE PHOSPH 143 IU/L High 34-104 [facility] Comment on above: Performed By: #### 4 5506, 47702, 10342, 39590, 80122, 61661 #### [facility] [place] [address] ALT [Catalytic activity/Vol] 18 U/L Normal 7-52 [facility] Comment on above: Performed By: #### 4 5506, 56628, 15499, 42214, 11653, 27807 #### [facility] [place] [address] [place] [address], [facility] AST [Catalytic activity/Vol] 15 U/L Normal 13-39 [facility] Comment on above: Performed By: #### 4 5506, 93008, 80254, 67691, 69748, 79995 #### [facility] [place] [address] [place] [address], [facility] Bilirubin [Mass/Vol] 0.3 mg/dL Normal 0.3-1.0 [facility] Comment on above: Performed By: #### 4 5506, 08726, 95066, 38869, 96617, 17866 #### [facility] [place] [address] [place] [address], [place] Calcium [Mass/Vol] 10.6 mg/dL High 8.6-10.3 [facility] Comment on above: Performed By: #### 4 5506, 11740, 45327, 38574, 70077, 65303 #### [facility] [place] [address] [place] [address], [place] Chloride [Moles/Vol] 102 mmol/L Normal 98-107 [facility] Comment on above: Performed By: #### 4 5506, 41595, 34444, 13978, 66946, 03183 #### [facility] [facility] [place] [address] [place] [address], [place] CO2 [Moles/Vol] 24 mmol/L Normal 21-31 [facility] Comment on above: Performed By: #### 4 5506, 20926, 57769, 73491, 19460, 24335 #### [facility] [place] [address] [place] [address], [place] Creatinine [Mass/Vol] 1.04 mg/dL Normal 0.70-1.30 [facility] Comment on above: Performed By: #### 4 5506, 64154, 47197, 82224, 97413, 97157 #### [facility] [place] [address] [place] [address], [place] GFR/1.73 sq M.predicted among blacks MDRD (S/P/Bld) [Vol rate/Area] mL/min/{1.73_m2} Normal >60 [facility] Comment on above: Performed By: #### 4 5506, 74901, 31306, 90147, 04563, 22398 #### [facility] [place] [address] [place] [address], [place] GFR/1.73 sq M.predicted among non-blacks MDRD (S/P/Bld) [Vol rate/Area] mL/min/{1.73_m2} Normal >60 [facility] Comment on above: Performed By: #### 4 5506, 37614, 01980, 53215, 73818, 34622 #### [facility] [place] [address] [place] [address], [place] Glucose [Mass/Vol] 167 mg/dL High 70-100 [facility] Comment on above: Performed By: #### 4 5506, 25009, 58884, 31867, 63569, 00675 #### [facility] [place] [address] [place] [address], [place] Potassium [Moles/Vol] 5.3 mmol/L High 3.5-5.1 [facility] Comment on above: Performed By: #### 4 5506, 21059, 28429, 76204, 52598, 57208 #### [facility] [place] [address] [place] [address], [place] Protein [Mass/Vol] 6.5 g/dL Normal 6.0-8.3 [facility] Comment on above: Performed By: #### 4 5506, 08291, 35596, 44020, 08376, 73090 #### [facility] [place] [address] [place] [address], [place] Sodium [Moles/Vol] 134 mmol/L Low 136-145 [facility] Comment on above: Performed By: #### 4 5506, 53693, 17912, 19782, 08157, 36722 #### [facility] [place] [address] [place] [address], [place] Urea nitrogen [Mass/Vol] 11 mg/dL Normal 7-25 [facility] Comment on above: Performed By: #### 4 5506, 60411, 27691, 14961, 60276, 94875 #### [facility] [place] [address] [place] [address], [facility] DIRECT BILIon 06-22-2021 Bilirubin.direct [Mass/Vol] 0.1 mg/dL Normal 0.0-0.2 [facility] Comment on above: Performed By: #### 4 5506, 81847, 31816, 11250, 91374, 43177 #### [facility] [place] [address] [place] [address], [facility] LIPID PROFILEon 06-22-2021 Cholesterol [Mass/Vol] 77 mg/dL Low 120-200 [facility] Comment on above: Result Comment: CHOL ESTEROL REFERENCE RANGE: 20 YEARS AND OLDER CARDIOVASCULAR RISK Less than 200 mg/dl Low Risk 200 to 239 mg/dl Borderline Risk 240 mg/dl and greater High Risk Performed By: #### 4 5506, 02883, 86677, 46185, 35030, 17762 #### [facility] [place] [address] [facility] [place] [address], [facility] Cholesterol in HDL [Mass/Vol] 40 mg/dL Normal 23-92 [facility] Comment on above: Result Comment: Slig ht variation in normal range could be due to gender and/or age. HDL CHOLESTEROL REFERENCE RANGE: 20 years and older Cardiovascular Risk > or =60 mg/dL Desirable 40 TO 59 mg/dL Low Risk <40 mg/dL High Risk Performed By: #### 4 5506, 96172, 76120, 49842, 24587, 98969 #### [facility] [place] [address] [place] [address], [facility] Cholesterol in LDL [Mass/Vol] 24 mg/dL Normal 0-130 [facility] Comment on above: Result Comment: LDL IS A CALCULATION LDL IS ONLY VALID IF THE TRIG IS LESS THAN 400. Performed By: #### 4 5506, 38790, 97140, 74388, 61161, 37297 #### [facility] [place] [address] [place] [address], [facility] Cholesterol.total/Cho lesterol in HDL [Mass ratio] 1.9 {ratio} Normal .0-4.5 [facility] Comment on above: Performed By: #### 4 5506, 01755, 14905, 06484, 74541, 55475 #### [facility] [place] [address] NON-HDL CHOLESTEROL 37 mg/dL Normal [facility] Comment on above: Performed By: #### 4 5506, 12285, 63883, 74758, 18462, 98762 #### [facility] [place] [address] Triglyceride [Mass/Vol] 63 mg/dL Normal 40-149 [facility] Comment on above: Result Comment: TRIG LYCERIDE REFERENCE RANGE: 20 YEARS AND OLDER CARDIOVASCULAR RISK LESS THAN 150 mg/dl LOW RISK 150 TO 199 mg/dl BORDERLINE RISK 200 mg/dl AND GREATER HIGH RISK Performed By: #### 4 5506, 43209, 79568, 83700, 47129, 06952 #### [facility] [place] [address] VLDL CHOL 13 mg/dL Normal 0-40 [facility] Comment on above: Performed By: #### 4 5506, 91055, 33112, 21299, 77129, 48652 #### [facility] [place] [address] MAGNESIUM BLOODon 06-22-2021 Magnesium [Mass/Vol] 1.4 mg/dL Low 1.9-2.7 [facility] Comment on above: Performed By: #### 4 5506, 43541, 00192, 89593, 47729, 44321 #### [facility] [place] [address] [place] [address], [facility] PHOSPHORUS BLOODon Phosphate [Mass/Vol] 2.5 mg/dL Normal 2.5-5.0 [facility] Comment on above: Performed By: #### 4 5506, 16845, 52660, 56558, 18619, 96097 #### [facility] PTH INTACTon 06-22-2021 PTH INTACT 155 pg/mL High 12-88 [facility] Comment on above: Performed By: #### 4 5506, 37747, 34593, 51426, 03200, 63283 #### [facility] [place] [address] TACROLIMUSon 06-22-2021 Tacrolimus (Bld) [Mass/Vol] 21.0 ng/mL High 5.0-20.0 [facility] Comment on above: Result Comment: The [employer] Tacrolimus assay is a delayed one-step immunoassay for the quantitative determination of tacrolimus in human whole blood using the chemiluminescent microparticle immunoassay (CMIA) technology with flexible assay protocols, referred to as Chemiflex. Performed By: #### 4 5506, 34439, 62598, 98226, 92865, 64336 #### [facility] [place] [address] URIC ACID BLOODon 06-22-2021 Urate [Mass/Vol] 7.9 mg/dL High 4.4-7.6 [facility] Comment on above: Performed By: #### 4 5506, 46685, 35161, 51474, 18424, 53931 #### [facility] [place] [address] CBC W/DIFFon 04-19-2021 ABS IMM GRANS 0.1 10*3/uL Normal 0.0-0.2 [facility] Comment on above: Performed By: #### 4 5506, 72982, 95636, 62557, 55815, 87619 #### [facility] [place] [address] ABS NEUTROPHILS 5.2 10*3/uL Normal 1.6-7.6 [facility] Comment on above: Performed By: #### 4 5506, 52624, 59476, 07475, 81415, 10721 #### [facility] [place] [address] [place] [address], [facility] Basophils (Bld) [#/Vol] 0.0 10*3/uL Normal 0.0-0.2 [facility] Comment on above: Performed By: #### 4 5506, 23778, 21870, 17152, 16880, 42842 #### [facility] [place] [address] [place] [address], [facility] Basophils/100 WBC (Bld) 0.4 % Normal 0.0-1.0 [facility] Comment on above: Performed By: #### 4 5506, 79269, 62994, 39204, 62945, 24165 #### [facility] [place] [address] [place] [address], [facility] Eosinophils (Bld) [#/Vol] 0.2 10*3/uL Normal 0.0-0.5 [facility] Comment on above: Performed By: #### 4 5506, 86947, 71505, 75928, 64668, 03329 #### [facility] [place] [address] [place] [address], [facility] Eosinophils/100 WBC (Bld) 2.9 % Normal 0.0-6.0 [facility] Comment on above: Performed By: #### 4 5506, 73901, 18658, 25784, 14105, 02830 #### [facility] [place] [address] [address], [facility] Erythrocyte distribution width (RBC) [Ratio] 13.3 % Normal 11.5-15.0 [facility] Comment on above: Performed By: #### 4 5506, 83929, 81314, 40028, 16312, 94939 #### [facility] [place] [address] [place] [address], [facility] Hematocrit (Bld) [Volume fraction] 37.1 % Low 39.0-50.0 [facility] Comment on above: Performed By: #### 4 5506, 40887, 27194, 33032, 82331, 26825 #### [facility] [place] [address] [facility] [place] [address] Hemoglobin (Bld) [Mass/Vol] 11.7 g/dL Low 13.0-17.0 [facility] Comment on above: Performed By: #### 4 5506, 13181, 80536, 51693, 97893, 31227 #### [facility] [place] [address] [facility]. [address] IMMATURE GRANS 0.9 % Normal 0.0-1.0 [facility] Comment on above: Performed By: #### 4 5506, 64763, 67746, 58566, 86923, 75889 #### [facility] [place] [address] [facility]. [address] Lymphocytes (Bld) [#/Vol] 0.9 10*3/uL Low 1.2-4.0 [facility] Comment on above: Performed By: #### 4 5506, 21309, 48521, 08332, 63101, 84029 #### [facility] [place] [address] [facility]. [address] Lymphocytes/100 WBC (Bld) 12.5 % Low 20.0-45.0 [facility] Comment on above: Performed By: #### 4 5506, 85574, 79001, 68169, 61371, 52571 #### [facility] [place] [address] [facility]. [address] MCH (RBC) [Entitic mass] 29.0 pg Normal 27.0-33.0 [facility] Comment on above: Performed By: #### 4 5506, 14656, 98277, 84290, 25372, 30262 #### [facility] [place] [address] [facility] [place] [address], [facility] MCHC (RBC) [Mass/Vol] 31.5 g/dL Low 32.0-35.0 [facility] Comment on above: Performed By: #### 4 5506, 61766, 43139, 42576, 20637, 98789 #### [facility] [place] [address] [facility] [address], [facility] MCV (RBC) [Entitic vol] 92.1 fL Normal 82.0-98.0 [facility] Comment on above: Performed By: #### 4 5506, 21403, 79748, 39103, 60041, 23294 #### [facility] [place] [address] Monocytes (Bld) [#/Vol] 0.6 10*3/uL Normal 0.1-1.0 [facility] Comment on above: Performed By: #### 4 5506, 72778, 83743, 90261, 62451, 63673 #### [facility] [place] [address] [facility]. [address] MONOS 8.6 % Normal 5.0-12.0 [facility] Comment on above: Performed By: #### 4 5506, 22849, 66916, 24503, 25999, 01595 #### [facility] [place] [address] [facility]. [address] Neutrophils/100 WBC (Bld) 74.7 % High 40.0-72.0 [facility] Comment on above: Performed By: #### 4 5506, 17188, 89679, 25155, 53067, 54691 #### [facility] [place] [address] [facility] [place] [address], [facility] Nucleated RBC/100 WBC (Bld) [Ratio] 0 % Normal 0-0 [facility] Comment on above: Performed By: #### 4 5506, 85824, 48735, 06228, 03892, 11846 #### [facility] [place] [address] [place] [address], [facility] PLAT CNT 290 10*3/uL Normal 150-400 [facility] Comment on above: Performed By: #### 4 5506, 81607, 58155, 21989, 10615, 27063 #### [facility] [place] [address] [place] [address], [facility] RBC (Bld) [#/Vol] 4.03 10*6/uL Low 4.20-5.70 [facility] Comment on above: Performed By: #### 4 5506, 94471, 38737, 22912, 82005, 14578 #### [facility] [place] [address] [place] [address], [facility] WBC (Bld) [#/Vol] 6.96 10*3/uL Normal 4.00-10.60 [facility] Comment on above: Performed By: #### 4 5506, 64336, 53861, 76293, 19204, 35385 #### [facility] [place] [address] [place] [address], [facility] COMP METABOLIC PANELon 04-19 Albumin [Mass/Vol] 4.3 g/dL Normal 3.5-5.7 [facility] Comment on above: Performed By: #### 4 5506, 83508, 65917, 59513, 54092, 60991 #### [facility] [place] [address] [place] [address], [facility] ALKALINE PHOSPH 137 IU/L High 34-104 [facility] Comment on above: Performed By: #### 4 5506, 00904, 30279, 66198, 88131, 79005 #### [facility] [place] [address] [place] [address], [place] ALT [Catalytic activity/Vol] 17 U/L Normal 7-52 [facility] Comment on above: Performed By: #### 4 5506, 77372, 87377, 28877, 65417, 78349 #### [facility] [place] [address] [place] [address], [facility] AST [Catalytic activity/Vol] 16 U/L Normal 13-39 [facility] Comment on above: Performed By: #### 4 5506, 33094, 60422, 91887, 71245, 35833 #### [facility] [place] [address] [place] [address], [place] Bilirubin [Mass/Vol] 0.4 mg/dL Normal 0.3-1.0 [facility] Comment on above: Performed By: #### 4 5506, 35241, 49760, 67752, 47058, 09186 #### [facility] [place] [address] [place] [address], [place] Calcium [Mass/Vol] 10.5 mg/dL High 8.6-10.3 [facility] Comment on above: Performed By: #### 4 5506, 74383, 21008, 47506, 01502, 52122 #### [facility] [place] [address] [place] [address], [place] Chloride [Moles/Vol] 99 mmol/L Normal 98-107 [facility] Comment on above: Performed By: #### 4 5506, 78217, 93582, 72099, 87295, 07561 #### [facility] [place] [address] [place] [address], [place] CO2 [Moles/Vol] 27 mmol/L Normal 21-31 [facility] Comment on above: Performed By: #### 4 5506, 93598, 44103, 05653, 89453, 59227 #### [facility] [place] [address] [place] [address], [place] Creatinine [Mass/Vol] 1.04 mg/dL Normal 0.70-1.30 [facility] Comment on above: Performed By: #### 4 5506, 28665, 68856, 50394, 08909, 37672 #### [facility] [place] [address] [place] [address], [place] GFR/1.73 sq M.predicted among blacks MDRD (S/P/Bld) [Vol rate/Area] mL/min/{1.73_m2} Normal >60 [facility] Comment on above: Performed By: #### 4 5506, 54201, 51651, 27562, 29557, 10448 #### [facility] [place] [address] [place] [address], [place] GFR/1.73 sq M.predicted among non-blacks MDRD (S/P/Bld) [Vol rate/Area] mL/min/{1.73_m2} Normal >60 [facility] Comment on above: Performed By: #### 4 5506, 89058, 33305, 91210, 66371, 03657 #### [facility] [place] [address] [place] [address], [place] Glucose [Mass/Vol] 139 mg/dL High 70-100 [facility] Comment on above: Performed By: #### 4 5506, 43677, 33851, 50172, 67450, 96589 #### [facility] [place] [address] [place] [address], [place] Potassium [Moles/Vol] 5.1 mmol/L Normal 3.5-5.1 [facility] Comment on above: Performed By: #### 4 5506, 41342, 02035, 43418, 70872, 48327 #### [facility] [place] [address] [place] [address], [place] Protein [Mass/Vol] 6.5 g/dL Normal 6.0-8.3 [facility] Comment on above: Performed By: #### 4 5506, 93749, 41220, 08836, 50845, 12534 #### [facility] [place] [address] [place] [address], [place] Sodium [Moles/Vol] 133 mmol/L Low 136-145 [facility] Comment on above: Performed By: #### 4 5506, 96587, 40762, 11179, 27574, 28985 #### [facility] [place] [address] [place] [address], [facility] Urea nitrogen [Mass/Vol] 11 mg/dL Normal 7-25 [facility] Comment on above: Performed By: #### 4 5506, 49078, 05146, 52027, 79297, 94210 #### [facility] [place] [address] [place] [address], [place] DIRECT BILIon 04-19-2021 Bilirubin.direct [Mass/Vol] 0.1 mg/dL Normal 0.0-0.2 [facility] Comment on above: Performed By: #### 4 5506, 76595, 82393, 09911, 32405, 00604 #### [facility] [place] [address] [place] [address], [facility] LIPID PROFILEon 04-19-2021 Cholesterol [Mass/Vol] 82 mg/dL Low 120-200 [facility] Comment on above: Result Comment: CHOL ESTEROL REFERENCE RANGE: 20 YEARS AND OLDER CARDIOVASCULAR RISK Less than 200 mg/dl Low Risk 200 to 239 mg/dl Borderline Risk 240 mg/dl and greater High Risk Performed By: #### 4 5506, 52193, 09761, 66296, 15169, 84489 #### [facility] [place] [address] [place] [address], [facility] Cholesterol in HDL [Mass/Vol] 38 mg/dL Normal 23-92 [facility] Comment on above: Result Comment: Slig ht variation in normal range could be due to gender and/or age. HDL CHOLESTEROL REFERENCE RANGE: 20 years and older Cardiovascular Risk > or =60 mg/dL Desirable 40 TO 59 mg/dL Low Risk <40 mg/dL High Risk Performed By: #### 4 5506, 36303, 96023, 45099, 63437, 27089 #### [facility] [place] [address] [place] [address], [place] Cholesterol in LDL [Mass/Vol] 25 mg/dL Normal 0-130 [facility] Comment on above: Result Comment: LDL IS A CALCULATION LDL IS ONLY VALID IF THE TRIG IS LESS THAN 400. Performed By: #### 4 5506, 28452, 66343, 84639, 41322, 08438 #### [facility] [place] [address] Cholesterol.total/Cho lesterol in HDL [Mass ratio] 2.2 {ratio} Normal .0-4.5 [facility] Comment on above: Performed By: #### 4 5506, 23420, 12579, 88921, 55674, 24143 #### [facility] [place] [address] [facility] [address] NON-HDL CHOLESTEROL 44 mg/dL Normal [facility] Comment on above: Performed By: #### 4 5506, 46210, 40395, 25173, 76315, 92404 #### [facility] [place] [address] [facility] [address] Triglyceride [Mass/Vol] 93 mg/dL Normal 40-149 [facility] Comment on above: Result Comment: TRIG LYCERIDE REFERENCE RANGE: 20 YEARS AND OLDER CARDIOVASCULAR RISK LESS THAN 150 mg/dl LOW RISK 150 TO 199 mg/dl BORDERLINE RISK 200 mg/dl AND GREATER HIGH RISK Performed By: #### 4 5506, 17983, 37672, 11483, 93246, 40549 #### [facility] [place] [address] [facility] [address] VLDL CHOL 19 mg/dL Normal 0-40 [facility] Comment on above: Performed By: #### 4 5506, 23025, 31789, 64119, 53274, 46304 #### [facility] [place] [address] [facility] [address], [facility] MAGNESIUM BLOODon 04-19-2021 Magnesium [Mass/Vol] 1.8 mg/dL Low 1.9-2.7 [facility] Comment on above: Performed By: #### 4 5506, 28870, 38730, 15936, 85135, 34238 #### [facility] [place] [address] [facility] [address], [facility] PHOSPHORUS BLOODon Phosphate [Mass/Vol] 3.0 mg/dL Normal 2.5-5.0 [facility] Comment on above: Performed By: #### 4 5506, 37816, 46082, 34224, 92820, 92127 #### [facility] [place] [address] [facility] [address], [facility] PROSPERAon 04-19-2021 PROSPERA KIT Results to be mailed directly to physician's office by reference lab. Normal [facility] Comment on above: Result Comment: Test performed by [id number] [place] [address] No result expected. For billing and tracking purposes only. Specimen collected for transplant patient and sent to [facility] per Dr instructions. No charge. Performed By: #### 4 5506, 23042, 79445, 20431, 48847, 35339 #### [facility] [place] [address] [facility]. [address] RESULT Results to be mailed directly to physician's office by reference lab. Normal [facility] Comment on above: Performed By: #### 4 5506, 28991, 17245, 01339, 54308, 90260 #### [facility] [place] [address] [facility]. [address] TACROLIMUSon 04-19-2021 Tacrolimus (Bld) [Mass/Vol] 7.7 ng/mL Normal 5.0-20.0 [facility] Comment on above: Result Comment: The [employer] Tacrolimus assay is a delayed one-step immunoassay for the quantitative determination of tacrolimus in human whole blood using the chemiluminescent microparticle immunoassay (CMIA) technology with flexible assay protocols, referred to as Chemiflex. Performed By: #### 4 5506, 66450, 75955, 23833, 82997, 06221 #### [facility] [place] [address] [facility] [address], [facility] URIC ACID BLOODon 04-19-2021 Urate [Mass/Vol] 7.9 mg/dL High 4.4-7.6 [facility] Comment on above: Performed By: #### 4 5506, 90062, 44884, 54859, 13624, 02532 #### [facility] [place] [address] CBC W/DIFFon 04-11-2021 ABS IMM GRANS 0.0 10*3/uL Normal 0.0-0.2 [facility] Comment on above: Performed By: #### 4 5506, 56510, 32389, 30296, 98391, 81373 #### [facility] [place] [address] ABS NEUTROPHILS 4.5 10*3/uL Normal 1.6-7.6 [facility] Comment on above: Performed By: #### 4 5506, 51124, 12445, 80292, 91424, 65649 #### [facility] [place] [address] Basophils (Bld) [#/Vol] 0.0 10*3/uL Normal 0.0-0.2 [facility] Comment on above: Performed By: #### 4 5506, 28991, 89956, 74091, 29490, 98990 #### [facility] [place] [address] Basophils/100 WBC (Bld) 0.5 % Normal 0.0-1.0 [facility] Comment on above: Performed By: #### 4 5506, 74993, 95165, 89183, 08623, 27382 #### [facility] [place] [address] Eosinophils (Bld) [#/Vol] 0.2 10*3/uL Normal 0.0-0.5 [facility] Comment on above: Performed By: #### 4 5506, 37343, 15658, 88362, 87906, 83780 #### [facility] [facility] [place] [address] [place] [address], [facility] Eosinophils/100 WBC (Bld) 3.1 % Normal 0.0-6.0 [facility] Comment on above: Performed By: #### 4 5506, 04328, 50220, 88752, 44272, 32928 #### [facility] [place] [address] Erythrocyte distribution width (RBC) [Ratio] 13.4 % Normal 11.5-15.0 [facility] Comment on above: Performed By: #### 4 5506, 36890, 88911, 46173, 61525, 02263 #### [facility] [place] [address] Hematocrit (Bld) [Volume fraction] 35.5 % Low 39.0-50.0 [facility] Comment on above: Performed By: #### 4 5506, 23703, 22065, 20080, 94281, 65343 #### [facility] [place] [address] [facility] [address] Hemoglobin (Bld) [Mass/Vol] 11.7 g/dL Low 13.0-17.0 [facility] Comment on above: Performed By: #### 4 5506, 74212, 74372, 13780, 09720, 94366 #### [facility] [place] [address] [facility] [place] [address], [facility] IMMATURE GRANS 0.6 % Normal 0.0-1.0 [facility] Comment on above: Performed By: #### 4 5506, 22684, 82663, 79001, 10057, 94133 #### [facility] [place] [address] [place] [address], [facility] Lymphocytes (Bld) [#/Vol] 0.8 10*3/uL Low 1.2-4.0 [facility] Comment on above: Performed By: #### 4 5506, 39773, 40099, 33235, 44604, 78804 #### [facility] [place] [address] [place] [address], [facility] Lymphocytes/100 WBC (Bld) 12.9 % Low 20.0-45.0 [facility] Comment on above: Performed By: #### 4 5506, 05574, 77547, 15973, 23267, 32285 #### [facility] [place] [address] [place] [address], [facility] MCH (RBC) [Entitic mass] 29.2 pg Normal 27.0-33.0 [facility] Comment on above: Performed By: #### 4 5506, 33492, 31085, 72464, 34172, 93286 #### [facility] [place] [address] MCHC (RBC) [Mass/Vol] 33.0 g/dL Normal 32.0-35.0 [facility] Comment on above: Performed By: #### 4 5506, 51951, 35625, 12734, 20163, 81570 #### [facility] [place] [address] [address], [facility] MCV (RBC) [Entitic vol] 88.5 fL Normal 82.0-98.0 [facility] Comment on above: Performed By: #### 4 5506, 59913, 33007, 53987, 10202, 29526 #### [facility] [place] [address] [place] [address], [facility] Monocytes (Bld) [#/Vol] 0.6 10*3/uL Normal 0.1-1.0 [facility] Comment on above: Performed By: #### 4 5506, 81837, 28598, 22245, 78615, 22146 #### [facility] [place] [address] [place] [address], [facility] MONOS 10.3 % Normal 5.0-12.0 [facility] Comment on above: Performed By: #### 4 5506, 54407, 01408, 49739, 71754, 28254 #### [facility] [place] [address] [place] [address], [facility] Neutrophils/100 WBC (Bld) 72.6 % High 40.0-72.0 [facility] Comment on above: Performed By: #### 4 5506, 07427, 86581, 67134, 14080, 31301 #### [facility] [place] [address] [facility] [place] [address], [facility] Nucleated RBC/100 WBC (Bld) [Ratio] 0 % Normal 0-0 [facility] Comment on above: Performed By: #### 4 5506, 57543, 09611, 21007, 35671, 60561 #### [facility] [place] [address] [facility] [place] [id number], [facility] PLAT CNT 272 10*3/uL Normal 150-400 [facility] Comment on above: Performed By: #### 4 5506, 83944, 71391, 67386, 68837, 15644 #### [facility] [place] [address] [facility] [place] [address], [facility] RBC (Bld) [#/Vol] 4.01 10*6/uL Low 4.20-5.70 [facility] Comment on above: Performed By: #### 4 5506, 05918, 66872, 32911, 92770, 02830 #### [facility] [place] [address] [facility] [place] [address], [place] WBC (Bld) [#/Vol] 6.22 10*3/uL Normal 4.00-10.60 [facility] Comment on above: Performed By: #### 4 5506, 17339, 20486, 78502, 95159, 91151 #### [facility] [place] [address] [place] [address], [place] COMP METABOLIC PANELon 12-01 -2021 Albumin [Mass/Vol] 4.3 g/dL Normal 3.5-5.7 [facility] Comment on above: Performed By: #### 4 5506, 53004, 88088, 43309, 67664, 85805 #### [facility] [place] [address] [place] [address], [place] ALKALINE PHOSPH 115 IU/L High 34-104 [facility] Comment on above: Performed By: #### 4 5506, 72156, 96319, 45488, 70386, 50750 #### [facility] [place] [address] [place] [address], [place] ALT [Catalytic activity/Vol] 16 U/L Normal 7-52 [facility] Comment on above: Performed By: #### 4 5506, 37409, 79309, 95664, 18106, 24180 #### [facility] [place] [address] [place] [address], [place] AST [Catalytic activity/Vol] 15 U/L Normal 13-39 [facility] Comment on above: Performed By: #### 4 5506, 85023, 08721, 28085, 37232, 17808 #### [facility] [place] [address] [place] [address], [place] Bilirubin [Mass/Vol] 0.6 mg/dL Normal 0.3-1.0 [facility] Comment on above: Performed By: #### 4 5506, 93474, 90213, 85310, 79179, 55617 #### [facility] [place] [address] [place] [address], [place] Calcium [Mass/Vol] 10.3 mg/dL Normal 8.6-10.3 [facility] Comment on above: Performed By: #### 4 5506, 67833, 14127, 78910, 09947, 27172 #### [facility] [place] [address] [place] [address], [place] Chloride [Moles/Vol] 97 mmol/L Low 98-107 [facility] Comment on above: Performed By: #### 4 5506, 14269, 07160, 40022, 60561, 57110 #### [facility] [place] [address] [place] [address], [place] CO2 [Moles/Vol] 26 mmol/L Normal 21-31 [facility] Comment on above: Performed By: #### 4 5506, 68124, 68649, 46699, 52954, 57340 #### [facility] [place] [address] [place] [address], [place] Creatinine [Mass/Vol] 0.93 mg/dL Normal 0.70-1.30 [facility] Comment on above: Performed By: #### 4 5506, 69690, 53632, 85631, 45175, 10143 #### [facility] [place] [address] [place] [address], [place] GFR/1.73 sq M.predicted among blacks MDRD (S/P/Bld) [Vol rate/Area] mL/min/{1.73_m2} Normal >60 [facility] Comment on above: Performed By: #### 4 5506, 46479, 67010, 97253, 12707, 42768 #### [facility] [place] [address] [place] [address], [place] GFR/1.73 sq M.predicted among non-blacks MDRD (S/P/Bld) [Vol rate/Area] mL/min/{1.73_m2} Normal >60 [facility] Comment on above: Performed By: #### 4 5506, 29510, 74494, 77002, 93970, 19676 #### [facility] [place] [address] [place] [address], [place] Glucose [Mass/Vol] 136 mg/dL High 70-100 [facility] Comment on above: Performed By: #### 4 5506, 34483, 87522, 14573, 79829, 29721 #### [facility] [place] [address] [place] [address], [facility] Potassium [Moles/Vol] 5.2 mmol/L High 3.5-5.1 [facility] Comment on above: Performed By: #### 4 5506, 09893, 59216, 88315, 60123, 28502 #### [facility] [place] [address] [place] [address], [facility] Protein [Mass/Vol] 6.7 g/dL Normal 6.0-8.3 [facility] Comment on above: Performed By: #### 4 5506, 05613, 16119, 33094, 55509, 49317 #### [facility] [place] [address] [place] [address], [facility] Sodium [Moles/Vol] 129 mmol/L Low 136-145 [facility] Comment on above: Performed By: #### 4 5506, 33732, 41682, 09298, 08759, 66267 #### [facility] [place] [address] [place] [address], [facility] Urea nitrogen [Mass/Vol] 10 mg/dL Normal 7-25 [facility] Comment on above: Performed By: #### 4 5506, 34822, 53700, 34781, 62357, 70177 #### [facility] [place] [address] [place] [id number], [facility] DIRECT BILIon 04-11-2021 Bilirubin.direct [Mass/Vol] 0.2 mg/dL Normal 0.0-0.2 [facility] Comment on above: Performed By: #### 4 5506, 65151, 08143, 33124, 93394, 80160 #### [facility] [place] [address] [place] [address], [place] LIPID PROFILEon 04-11-2021 Cholesterol [Mass/Vol] 84 mg/dL Low 120-200 [facility] Comment on above: Result Comment: CHOL ESTEROL REFERENCE RANGE: 20 YEARS AND OLDER CARDIOVASCULAR RISK Less than 200 mg/dl Low Risk 200 to 239 mg/dl Borderline Risk 240 mg/dl and greater High Risk Performed By: #### 4 5506, 24843, 37462, 88435, 02609, 51543 #### [facility] [place] [address] [place] [address], [place] Cholesterol in HDL [Mass/Vol] 41 mg/dL Normal 23-92 [facility] Comment on above: Result Comment: Slig ht variation in normal range could be due to gender and/or age. HDL CHOLESTEROL REFERENCE RANGE: 20 years and older Cardiovascular Risk > or =60 mg/dL Desirable 40 TO 59 mg/dL Low Risk <40 mg/dL High Risk Performed By: #### 4 5506, 83088, 64814, 77764, 50322, 17886 #### [facility] [place] [address] [place] [address], [place] Cholesterol in LDL [Mass/Vol] 34 mg/dL Normal 0-130 [facility] Comment on above: Result Comment: LDL IS A CALCULATION LDL IS ONLY VALID IF THE TRIG IS LESS THAN 400. Performed By: #### 4 5506, 11058, 95871, 28957, 90245, 04023 #### [facility] [place] [address] [place] [address], [place] Cholesterol.total/Cho lesterol in HDL [Mass ratio] 2.0 {ratio} Normal .0-4.5 [facility] Comment on above: Performed By: #### 4 5506, 13081, 53886, 64706, 52364, 31143 #### [facility] [place] [address] [place] [address], [place] NON-HDL CHOLESTEROL 43 mg/dL Normal [facility] Comment on above: Performed By: #### 4 5506, 63196, 37023, 63076, 21185, 98955 #### [facility] [place] [address] [place] [address], [place] Triglyceride [Mass/Vol] 47 mg/dL Normal 40-149 [facility] Comment on above: Result Comment: TRIG LYCERIDE REFERENCE RANGE: 20 YEARS AND OLDER CARDIOVASCULAR RISK LESS THAN 150 mg/dl LOW RISK 150 TO 199 mg/dl BORDERLINE RISK 200 mg/dl AND GREATER HIGH RISK Performed By: #### 4 5506, 60400, 25774, 92860, 31618, 59206 #### [facility] [place] [address] VLDL CHOL 9 mg/dL Normal 0-40 [facility] Comment on above: Performed By: #### 4 5506, 07775, 07637, 77695, 41803, 06101 #### [facility] [place] [address] MAGNESIUM BLOODon 04-11-2021 Magnesium [Mass/Vol] 1.3 mg/dL Low 1.9-2.7 [facility] Comment on above: Performed By: #### 4 5506, 10874, 54821, 96858, 54351, 73174 #### [facility] [place] [address] [place] [address], [facility] PHOSPHORUS BLOODon Phosphate [Mass/Vol] 2.6 mg/dL Normal 2.5-5.0 [facility] Comment on above: Performed By: #### 4 5506, 15820, 63434, 47979, 34090, 56293 #### [facility] [place] [address] TACROLIMUSon 04-11-2021 Tacrolimus (Bld) [Mass/Vol] 8.3 ng/mL Normal 5.0-20.0 [facility] Comment on above: Result Comment: The [employer] Tacrolimus assay is a delayed one-step immunoassay for the quantitative determination of tacrolimus in human whole blood using the chemiluminescent microparticle immunoassay (CMIA) technology with flexible assay protocols, referred to as Chemiflex. Performed By: #### 4 5506, 75881, 30449, 45468, 99132, 82623 #### [facility] [place] [address] [facility]. [address] URIC ACID BLOODon 04-11-2021 Urate [Mass/Vol] 8.4 mg/dL High 4.4-7.6 [facility] Comment on above: Performed By: #### 4 5506, 94624, 08361, 40109, 86030, 31949 #### [facility] [place] [address] [facility] [address] BK VIRUS QUANTITATION FOR PL ASMAon 02-16-2021 BKV Plasma Quantitation by PCR Not detected Normal [facility] Comment on above: Result Comment: Meth od: BK virus was measured by quantitative polymerase chain reaction using a fluorescent hydrolysis probe targeting the polyomavirus BK RETUR[employer]ERK-1 gene. The lower limit of quantitation of the assay is 500 copies of BK genome per milliliter of plasma or urine, and any detectable BK DNA below that level is reported as: Detected, <500 copies/ml. Serial BK virus measurement can be used to monitor disease activity. (Reference: Katina ramirezl. J CLIN MICRO 2004; 42:1224-9837). This test was developed and its performance characteristics determined by the [facility]. It has not been approved by the [place] Food and Drug Administration. However, such approval is not required for clinical implementation, and test results have been shown to be clinically useful. This laboratory is CAP accredited and CLIA certified to perform high complexity testing. Performed By: #### 4 5506, 89161, 10078, 32190, 18937, 20067 #### [facility] [place] [address] [facility]. [address] BKV Plasma Quantitation Log by PCR Not detected Normal [facility] Comment on above: Performed By: #### 4 5506, 68513, 94806, 32501, 60184, 34129 #### [facility] [place] [address] [facility] [place] [address], [facility] CBC W/DIFFon 02-16-2021 ABS IMM GRANS 0.1 10*3/uL Normal 0.0-0.2 [facility] Comment on above: Performed By: #### 4 5506, 07904, 45571, 20148, 31679, 27831 #### [facility] [place] [address] [place] [address], [facility] ABS NEUTROPHILS 5.8 10*3/uL Normal 1.6-7.6 [facility] Comment on above: Performed By: #### 4 5506, 55321, 41381, 59646, 34138, 25229 #### [facility] [place] [address] [place] [address], [facility] Basophils (Bld) [#/Vol] 0.0 10*3/uL Normal 0.0-0.2 [facility] Comment on above: Performed By: #### 4 5506, 19873, 09664, 74186, 72806, 30794 #### [facility] [place] [address] [place] [address], [facility] Basophils/100 WBC (Bld) 0.4 % Normal 0.0-1.0 [facility] Comment on above: Performed By: #### 4 5506, 14851, 56344, 65296, 23770, 76945 #### [facility] [place] [address] [facility] [place] [address], [facility] Eosinophils (Bld) [#/Vol] 0.3 10*3/uL Normal 0.0-0.5 [facility] Comment on above: Performed By: #### 4 5506, 93450, 82769, 27353, 18984, 10124 #### [facility] [place] [address] [place] [address], [place] Eosinophils/100 WBC (Bld) 3.5 % Normal 0.0-6.0 [facility] Comment on above: Performed By: #### 4 5506, 61883, 95769, 92986, 65680, 25949 #### [facility] [place] [address] [place] [address], [place] Erythrocyte distribution width (RBC) [Ratio] 13.6 % Normal 11.5-15.0 [facility] Comment on above: Performed By: #### 4 5506, 83075, 53996, 00225, 87115, 99647 #### [facility] [place] [address] [facility]. [address] Hematocrit (Bld) [Volume fraction] 34.1 % Low 39.0-50.0 [facility] Comment on above: Performed By: #### 4 5506, 63178, 39255, 19818, 36086, 23540 #### [facility] [place] [address] [facility] Hemoglobin (Bld) [Mass/Vol] 11.6 g/dL Low 13.0-17.0 [facility] Comment on above: Performed By: #### 4 5506, 47134, 72057, 49396, 32974, 53159 #### [facility] [place] [address] [facility]. [address] IMMATURE GRANS 0.8 % Normal 0.0-1.0 [facility] Comment on above: Performed By: #### 4 5506, 42755, 98430, 49796, 44717, 60366 #### [facility] [place] [address] [facility]. [address] Lymphocytes (Bld) [#/Vol] 0.7 10*3/uL Low 1.2-4.0 [facility] Comment on above: Performed By: #### 4 5506, 30841, 47341, 98473, 90456, 31082 #### [facility] [place] [address] [facility] [place] [address], [facility] Lymphocytes/100 WBC (Bld) 9.2 % Low 20.0-45.0 [facility] Comment on above: Performed By: #### 4 5506, 40400, 32146, 70315, 34082, 17824 #### [facility] [place] [address] [facility] [place] [address], [facility] MCH (RBC) [Entitic mass] 29.5 pg Normal 27.0-33.0 [facility] Comment on above: Performed By: #### 4 5506, 23260, 33968, 73992, 56237, 03931 #### [facility] [place] [address] MCHC (RBC) [Mass/Vol] 34.0 g/dL Normal 32.0-35.0 [facility] Comment on above: Performed By: #### 4 5506, 33947, 61800, 19130, 35850, 29606 #### [facility] [place] [address] MCV (RBC) [Entitic vol] 86.8 fL Normal 82.0-98.0 [facility] Comment on above: Performed By: #### 4 5506, 34561, 29156, 77026, 94085, 18000 #### [facility] [place] [address] Monocytes (Bld) [#/Vol] 0.8 10*3/uL Normal 0.1-1.0 [facility] Comment on above: Performed By: #### 4 5506, 17023, 31213, 58556, 77236, 74512 #### [facility] [place] [address] MONOS 10.3 % Normal 5.0-12.0 [facility] Comment on above: Performed By: #### 4 5506, 32952, 18361, 85853, 64204, 84501 #### [facility] [place] [address] [place] [address], [facility] Neutrophils/100 WBC (Bld) 75.8 % High 40.0-72.0 [facility] Comment on above: Performed By: #### 4 5506, 65738, 18100, 34874, 46904, 10930 #### [facility] [place] [address] Nucleated RBC/100 WBC (Bld) [Ratio] 0 % Normal 0-0 [facility] Comment on above: Performed By: #### 4 5506, 33905, 76303, 15990, 48136, 57077 #### [facility] [place] [address] [facility]. [address] PLAT CNT 256 10*3/uL Normal 150-400 [facility] Comment on above: Performed By: #### 4 5506, 52846, 53469, 96456, 14391, 61654 #### [facility] [place] [address] RBC (Bld) [#/Vol] 3.93 10*6/uL Low 4.20-5.70 [facility] Comment on above: Performed By: #### 4 5506, 79138, 41797, 33312, 70739, 68426 #### [facility] [place] [address] WBC (Bld) [#/Vol] 7.65 10*3/uL Normal 4.00-10.60 [facility] Comment on above: Performed By: #### 4 5506, 48812, 55369, 79529, 49846, 92190 #### [facility] [place] [address] [facility]. [address] COMP METABOLIC PANELon 02-16 Albumin [Mass/Vol] 4.6 g/dL Normal 3.5-5.7 [facility] Comment on above: Performed By: #### 0 0121, 99568, 62638, 41027, 91514, 08394, 50442, 49627 #### [facility] [place] [address] [facility]. [address] ALKALINE PHOSPH 136 IU/L High 34-104 [facility] Comment on above: Performed By: #### 0 0121, 67158, 91584, 50462, 96127, 16684, 25079, 84824 #### [facility] [place] [address] [place] [address], [place] ALT [Catalytic activity/Vol] 22 U/L Normal 7-52 [facility] Comment on above: Performed By: #### 0 0121, 97882, 69576, 40427, 38803, 97119, 53131, 49449 #### [facility] [place] [address] [place] [address], [place] AST [Catalytic activity/Vol] 18 U/L Normal 13-39 [facility] Comment on above: Performed By: #### 0 0121, 91950, 72355, 08968, 57841, 64991, 01565, 06808 #### [facility] [place] [address] [place] [address], [place] Bilirubin [Mass/Vol] 0.5 mg/dL Normal 0.3-1.0 [facility] Comment on above: Performed By: #### 0 0121, 33158, 84184, 16732, 38552, 62901, 85448, 58976 #### [facility] [place] [address] [place] [address], [place] Calcium [Mass/Vol] 10.5 mg/dL High 8.6-10.3 [facility] Comment on above: Performed By: #### 0 0121, 86242, 94873, 86416, 97205, 74229, 87453, 22946 #### [facility] [place] [address] [place] [address], [place] Chloride [Moles/Vol] 94 mmol/L Low 98-107 [facility] Comment on above: Performed By: #### 0 0121, 34883, 48097, 91815, 58801, 38933, 30829, 47177 #### [facility] [place] [address] [place] [address], [place] CO2 [Moles/Vol] 28 mmol/L Normal 21-31 [facility] Comment on above: Performed By: #### 0 0121, 51978, 85453, 30173, 59073, 98069, 06760, 73841 #### [facility] [place] [address] [place] [address], [place] Creatinine [Mass/Vol] 0.93 mg/dL Normal 0.70-1.30 [facility] Comment on above: Performed By: #### 0 0121, 71096, 35866, 25893, 49166, 20991, 13383, 65458 #### [facility] [place] [address] [place] [address], [place] GFR/1.73 sq M.predicted among blacks MDRD (S/P/Bld) [Vol rate/Area] mL/min/{1.73_m2} Normal >60 [facility] Comment on above: Performed By: #### 0 0121, 71555, 50436, 97229, 96715, 08264, 53136, 01903 #### [facility] [place] [address] [place] [address], [place] GFR/1.73 sq M.predicted among non-blacks MDRD (S/P/Bld) [Vol rate/Area] mL/min/{1.73_m2} Normal >60 [facility] Comment on above: Performed By: #### 0 0121, 02936, 46667, 44407, 32282, 26663, 46376, 02576 #### [facility] [place] [address] [place] [address], [place] Glucose [Mass/Vol] 147 mg/dL High 70-100 [facility] Comment on above: Performed By: #### 0 0121, 55707, 29501, 30570, 85029, 36101, 70162, 64333 #### [facility] [place] [address] [place] [address], [place] Potassium [Moles/Vol] 4.6 mmol/L Normal 3.5-5.1 [facility] Comment on above: Performed By: #### 0 0121, 82673, 89859, 44992, 72755, 46662, 39780, 91573 #### [facility] [place] [address] [place] [address], [facility] Protein [Mass/Vol] 7.2 g/dL Normal 6.0-8.3 [facility] Comment on above: Performed By: #### 0 0121, 36342, 68858, 29879, 95290, 34639, 41219, 58815 #### [facility] [place] [address] [place] [address], [facility] Sodium [Moles/Vol] 129 mmol/L Low 136-145 [facility] Comment on above: Performed By: #### 0 0121, 67883, 99370, 33382, 92149, 15193, 07489, 14881 #### [facility] [place] [address] [place] [address], [facility] Urea nitrogen [Mass/Vol] 15 mg/dL Normal 7-25 [facility] Comment on above: Performed By: #### 0 0121, 80246, 61201, 33802, 90871, 82300, 57334, 11514 #### [facility] [place] [address] [place] [address], [facility] DIRECT BILIon 02-16-2021 Bilirubin.direct [Mass/Vol] 0.2 mg/dL Normal 0.0-0.2 [facility] Comment on above: Performed By: #### 4 5506, 97415, 03247, 30755, 00878, 73129 #### [facility] [place] [address] [place] [address], [place] HEMOGLOBIN A1Con 02-16-2021 Glucose [Moles/Vol] 154 mmol/L Normal [facility] Comment on above: Performed By: #### 4 5506, 00647, 74200, 73314, 24179, 25340 #### [facility] [place] [address] [place] [address], [facility] HbA1c (Bld) [Mass fraction] 7.0 % High 4.0-6.0 [facility] Comment on above: Performed By: #### 4 5506, 85602, 61150, 08604, 68190, 54537 #### [facility] [place] [address] [place] [address], [facility] LIPID PROFILEon 02-16-2021 Cholesterol [Mass/Vol] 78 mg/dL Low 120-200 [facility] Comment on above: Result Comment: CHOL ESTEROL REFERENCE RANGE: 20 YEARS AND OLDER CARDIOVASCULAR RISK Less than 200 mg/dl Low Risk 200 to 239 mg/dl Borderline Risk 240 mg/dl and greater High Risk Performed By: #### 0 0121, 86680, 97329, 24905, 95665, 73415, 99486, 28197 #### [facility] [place] [address] [place] [address], [facility] Cholesterol in HDL [Mass/Vol] 41 mg/dL Normal 23-92 [facility] Comment on above: Result Comment: Slig ht variation in normal range could be due to gender and/or age. HDL CHOLESTEROL REFERENCE RANGE: 20 years and older Cardiovascular Risk > or =60 mg/dL Desirable 40 TO 59 mg/dL Low Risk <40 mg/dL High Risk Performed By: #### 0 0121, 89941, 14510, 13183, 87203, 10641, 97280, 65184 #### [facility] [place] [address] [place] [address], [facility] Cholesterol in LDL [Mass/Vol] 28 mg/dL Normal 0-130 [facility] Comment on above: Result Comment: LDL IS A CALCULATION LDL IS ONLY VALID IF THE TRIG IS LESS THAN 400. Performed By: #### 0 0121, 08080, 58973, 08707, 71834, 36894, 68513, 55135 #### [facility] [place] [address] [place] [address], [place] Cholesterol.total/Cho lesterol in HDL [Mass ratio] 1.9 {ratio} Normal .0-4.5 [facility] Comment on above: Performed By: #### 0 0121, 62172, 84433, 79436, 23227, 05786, 73012, 16551 #### [facility] [place] [address] NON-HDL CHOLESTEROL 37 mg/dL Normal [facility] Comment on above: Performed By: #### 0 0121, 76689, 87291, 09503, 71040, 97941, 01947, 33456 #### [facility] [place] [address] Triglyceride [Mass/Vol] 44 mg/dL Normal 40-149 [facility] Comment on above: Result Comment: TRIG LYCERIDE REFERENCE RANGE: 20 YEARS AND OLDER CARDIOVASCULAR RISK LESS THAN 150 mg/dl LOW RISK 150 TO 199 mg/dl BORDERLINE RISK 200 mg/dl AND GREATER HIGH RISK Performed By: #### 0 0121, 69376, 90042, 46973, 01154, 25058, 44579, 41734 #### [facility] [place] [address] VLDL CHOL 9 mg/dL Normal 0-40 [facility] Comment on above: Performed By: #### 0 0121, 83025, 55855, 98224, 02247, 22945, 30949, 72553 #### [facility] [place] [address] MAGNESIUM BLOODon 02-16-2021 Magnesium [Mass/Vol] 1.5 mg/dL Low 1.9-2.7 [facility] Comment on above: Performed By: #### 4 5506, 95317, 04307, 60002, 91081, 88821 #### [facility] [place] [address] [place] [address], [facility] PHOSPHORUS BLOODon Phosphate [Mass/Vol] 2.4 mg/dL Low 2.5-5.0 [facility] Comment on above: Performed By: #### 0 0121, 52327, 65716, 87146, 37060, 13913, 31292, 55215 #### [facility] [place] [address] PROSPERAon 02-16-2021 PROSPERA KIT Results to be mailed directly to physician's office by reference lab. Normal [facility] Comment on above: Result Comment: Test performed by [id number] [place] [address] No result expected. For billing and tracking purposes only. Specimen collected for transplant patient and sent to requesting hospital per Dr instructions. No charge. Performed By: #### 4 5506, 47910, 90116, 18139, 18934, 26033 #### [facility] [place] [address] [facility]. [address] RESULT Results to be mailed directly to physician's office by reference lab. Normal [facility] Comment on above: Performed By: #### 4 5506, 74180, 37801, 71501, 34095, 96699 #### [facility] [place] [address] [facility]. [address] PTH INTACTon 02-16-2021 PTH INTACT 123 pg/mL High 12-88 [facility] Comment on above: Performed By: #### 4 5506, 13284, 99611, 76222, 11741, 13642 #### [facility] [place] [address] [facility]. [address] SINGLE ANTIGEN CLASS 1on METHOD Class I Single Antigen Normal [facility] Comment on above: Order Comment: Some [...] to frequency. Performed By: #### 4 5506, 53195, 26505, 72072, 03523, 04447 #### [facility] [place] [address] [place], [place] [address] [place] [address] SINGLE ANTIGEN CLASS 2on COMMENTS Normal [facility] Comment on above: Order Comment: Some [...] Antigen Microbeads Performed By: #### 4 5506, 33439, 39974, 00759, 68231, 58090 #### [facility] [place] [address] [facility]. [address] Result Comment: No C lass I donor specific antibody identified Class I Antigen Microbeads METHOD Class II Single Antigen Normal [facility] Comment on above: Order Comment: Some [...] to frequency. Performed By: #### 4 5506, 64829, 30080, 35036, 48060, 41316 #### [facility] [place] [address] [place] [address], [facility] SIGNED BY Normal [facility] Comment on above: Order Comment: Some [...] frequency. Result Comment: Jose A Lara, MS,CHT(IRINEO),MT(ASCP) Watch Engine Operator, Transplant Immunology Performed By: #### 4 5506, 43189, 54049, 00330, 34456, 35512 #### [facility] [place] [address] [facility]. [address] TACROLIMUSon 02-16-2021 Tacrolimus (Bld) [Mass/Vol] 7.0 ng/mL Normal 5.0-20.0 [facility] Comment on above: Result Comment: The [employer] Tacrolimus assay is a delayed one-step immunoassay for the quantitative determination of tacrolimus in human whole blood using the chemiluminescent microparticle immunoassay (CMIA) technology with flexible assay protocols, referred to as Chemiflex. Performed By: #### 4 5506, 64257, 33982, 54220, 43624, 62055 #### [facility] [place] [address] TESTOSTERONE, FREE+SHBG+TOTA L ILon 02-16-2021 [place] Normal [facility] Comment on above: Result Comment: Test Performed by [employer] [address] [place] [address] - Released 02/16/2021 18:49 SEX HORM BIND GLOB 52 nmol/L Normal 11-80 [facility] Testosterone [Mass/Vol] 399 ng/dL Normal 220-1000 [facility] TESTOSTERONE, FREE 60.0 pg/mL Normal 47-244 [facility] Comment on above: Result Comment: The concentration of free testosterone is derived from a mathematical expression based on the constant for the binding of testosterone to albumin and/or sex hormone binding globulin. URIC ACID BLOODon 02-16-2021 Urate [Mass/Vol] 8.0 mg/dL High 4.4-7.6 [facility] Comment on above: Performed By: #### 0 0121, 22610, 32856, 95902, 78673, 59629, 96160, 43431 #### [facility] [place] [address] [place] [address], [facility] VITAMIN D 25-HYDROXYon 02-16 VITAMIN D 25-OH 35.1 ng/mL Normal 30.0-80.0 [facility] Comment on above: Result Comment: >80. 0 Toxicity possible Performed By: #### 4 5506, 51807, 71389, 46940, 28571, 64511 #### [facility] [place] [address] [place], [place] [address] [place] [address] Vital Signs Date Time Vital Sign Value Performing Clinician Facility 03-05-2022 09:30-0400 Diastolic blood pressure 74 mm[Hg] MD Jericho Mccarthy Work Phone: [facility] 03-05-2022 09:30-0400 Heart rate 58 /min MD Jericho Mccarthy Work Phone: [facility] 03-05-2022 09:30-0400 Respiratory rate 18 /min MD Jericho Mccarthy Work Phone: [facility] 03-05-2022 09:30-0400 SaO2% (BldA) [Mass fraction] 99 % MD Jericho Mccarthy Work Phone: [facility] 03-05-2022 09:30-0400 Systolic blood pressure 133 mm[Hg] MD Jericho Mccarthy Work Phone: [facility] 03-05-2022 07:01-0400 Body height 167.64 cm MD Jericho Mccarthy Work Phone: [facility] 03-05-2022 07:01-0400 Body temperature 97.9 [degF] MD Jericho Mccarthy Work Phone: [facility] 03-05-2022 07:01-0400 Body weight 74.84 kg MD Jericho Mccarthy Work Phone: [facility] 01-21-2022 10:30-0400 Body height 167.64 cm Tj Wells Other [facility] 01-21-2022 10:30-0400 Body mass index (BMI) [Ratio] 26.47 kg/m2 Tj Maira Other [facility] 01-21-2022 10:30-0400 Body weight 74.39 kg Tj Wells Other [facility] Other 01-21-2022 10:30-0400 Diastolic blood pressure 71 mm[Hg] Tj Maira Other [facility] Other 01-21-2022 10:30-0400 Systolic blood pressure 148 mm[Hg] Tj Garciaormack Other [facility] Other Encounters Encounter Date Encounter Type Care Provider Facility Start: 10-31-2023 End: 10-31-2023 ambulatory SANTANA LANDIN [facility] Start: 08-25-2023 End: 08-25-2023 ambulatory JERICHO MCCARTHY Not Available Start: 07-09-2023 End: 07-09-2023 ambulatory PRICE MENDEZ [facility] Start: 05-22-2023 End: 05-22-2023 ambulatory JERICHO MCCARTHY Not Available Start: 05-19-2023 End: 05-19-2023 ambulatory JERICHO ABAD [facility] Start: 04-28-2023 Evaluation and management of inpatient ESTHER GARDUNO [facility] Start: 04-28-2023 Evaluation and management of inpatient PATRICIA SCHULZ [facility] Start: 04-27-2023 End: 04-30-2023 Evaluation and management of inpatient MENDY CLEMONS [facility] Start: 04-22-2023 End: 04-22-2023 ambulatory BENJA MCGHEE [facility] Start: 11-11-2022 End: 11-11-2022 ambulatory JERICHO ABAD [facility] Start: 10-03-2022 End: 10-04-[address] ALVAREZ [...] Start: 03-05-2022 End: 03-05-2022 ambulatory Tj Wells Facility:[facility] Start: 03-05-2022 End: 03-05-2022 Admission to same day surgery center MD Jericho Mccarthy Work Phone: [facility] Start: 03-05-2022 End: 03-05-2022 ambulatory MD Jericho Mccarthy Work Phone: [facility] Work Phone: Start: 03-01-2022 End: 03-01-2022 ambulatory Tj Wells Facility:[facility] Start: 03-01-2022 End: 03-01-2022 ambulatory MD Jericho Mccarthy Work Phone: [facility] Work Phone: Start: 03-01-2022 End: 03-01-2022 Patient encounter procedure MD Jericho Mccarthy Work Phone: [facility] Start: 02-01-2022 End: 02-02-[address] DOCTOR MCCABE Facility:[facility] Start: 01-21-2022 End: 01-21-2022 ambulatory Tj Wells Other [facility] Start: 01-21-2022 Office outpatient ne w [...] Date Care Activity Detail Author Start: 03-05-2022 [facility] Patient Education Colitis [facility] Work Phone: Immunizations Immunization Date Immunization Notes Care Provider Fa cility 04-30-2021 COVID-19 mRNA Bivale nt Booster (Pfizer) MD Jericho Mccarthy Work Phone: [facility] 08-01-2020 COVID-19 mRNA, Comirnaty (Pfizer) MD Jericho Mccarthy Work Phone: [facility] 07-12-2020 COVID-19 mRNA Comirnaty (Pfizer) MD Jericho Mccarthy Work Phone: [facility] 02-13-2017 influenza, seasonal, injectable Tj Wells Other [facility] Other 06-27-2016 influenza, seasonal, injectable Tj Wells Other [facility] Other 02-01-2016 pneumococcal polysaccharide vaccine, 23 valent Tj Wells Other [facility] Other Payers Date Payer Category Payer Private Health Insurance [id number] 2022 Self-pay [id number] 2022 Unknown [id number] 1958 Medicare [id number] 2.1 [id number] 1959 Private Health Insurance [id number] [id number] 1951 Unknown [id number] 2.16.84 0.1.384539.3.579.2.593 1950 Unknown [id number] 2.16.84 0.1.418817.3.579.2.593 1950 Unknown [id number] 2.16.84 0.1.128366.3.579.2.593 1951 Unknown [id number] 2.16.84 0.1.416177.3.579.2.593 1951 Unknown [id number] 2.16.84 0.1.183714.3.579.2.593 1951 Unknown [id number] 2.16.84 0.1.187847.3.579.2.593 1951 Unknown [id number] 2.16.84 0.1.712777.3.579.2.593 1951 Unknown [id number] 2.16.84 0.1.399297.3.579.2.593 1951 Unknown [id number] 2.16.84 0.1.789011.3.579.2.593 1951 Unknown [id number] 2.16.84 0.1.294058.3.579.2.593 1951 Unknown [id number] 2.16.84 0.1.608715.3.579.2.593 1951 Unknown [id number] 2.16.84 0.1.107541.3.579.2.593 1951 Unknown [id number] 2.16.84 0.1.852421.3.579.2.1259 1950 Unknown [id number] 2.16.84 0.1.026833.3.579.2.1259 Unknown [id number] 2.16.8 40.1.001226.3.579.2.531 Unknown [id number] 2.16.8 40.1.918848.3.579.2.531 Social History Date Type Detail Facility Unknown if ever smoked [facility] Other Sex Assigned At Sex Assigned At Bir th [facility] Other Start: 11-11-2019 End: 03-05-2022 Tobacco smoking status NHIS Ex-smoker (finding) [facility] Start: 1950 Sex Assigned At Male F [facility] Medical Equipment Procedure Code Equipment Code Equipment [...] of 1.3, he stated he saw the EXPLOSIVE OPERATOR SUPERVISOR here today and came up with a plan because he does not want an infusion. [facility] 07-09-2023 Note 07/10/23 Chief Complaint Patient presents with Kidney Follow-up Patient has no major concerns today PCP: Jericho Mccarthy MD Txp Referring: Preferred Pharmacy: [id number] - [place], [place] - [address] [facility] [address] [facility] [phone] [facility] [address] [facility] [address] [facility] [address] [place] [address] [address] [place] [id number] Subjective Visit Vitals BP 124/56 (BP Location: [...] Dose Status aMILoride (Midamor) 5 mg tablet [id number] No Take 5 mg by mouth in the morning. Historical Provider, Not Taking Flag for Review aMILoride (Midamor) 5 mg tablet [id number] Yes Take 1 tablet (5 mg) by mouth in the morning. Jericho Abad NP Taking Active amLODIPine (Norvasc) 10 mg tablet [id number] Yes Take 1 tablet (10 mg) by mouth in the morning. Benja Mcghee MD Taking Active atorvastatin (Lipitor) 10 mg tablet [id number] Yes Take 1 tablet (10 mg) by mouth every other day. Gita Egan NP Taking Active [facility] [id number] Yes Test daily before all meals/snacks and once before bedtime. With 100 lancets and strips Esther Garduno MD Taking Active carvedilol (Coreg) 12.5 mg tablet [id number] Yes Take 1 tablet (12.5 mg) by mouth with breakfast and with evening meal. Gita Egan NP Taking Active cinacalcet (Sensipar) 30 mg tablet [id number] Yes Take 1 tablet every day by oral route. Praveena Choen MD Taking Active furosemide (Lasix) 20 mg tablet [id number] Yes take 1 tablet by mouth once daily Naga Bosch MD Taking Active insulin glargine (Lantus Solostar U-100 Insulin) 100 unit/mL (3 mL) injection pen [id number] Yes Inject 20 Units under the skin at bedtime. Esther Garduno MD Taking Active isopropyl alcohoL 70 % towelette [id number] Yes Test daily before all meals/snacks and once before bedtime. Esther Garduno MD Taking Active lisinopril 20 mg tablet [id number] Yes Take 1 tablet (20 mg) by mouth in the morning. Benja Mcghee MD Taking Active magnesium oxide (Mag-Ox) 400 mg (241.3 mg magnesium) tablet [id number] Yes Take 2 tablets (800 mg) by mouth in the morning, at noon, and at bedtime. take 2 tablets by mouth three times a day with meals Jericho Abad NP Taking Active metFORMIN (Glucophage) 500 mg tablet [id number] Yes Take 1 tablet (500 mg) by mouth with breakfast and with evening meal. Esther Garduno MD Taking Active mycophenolate (Myfortic) 180 mg EC tablet [id number] Yes Take 4 tablets (720 mg) by mouth in the morning and at bedtime. Jericho Abad NP Taking Active omeprazole OTC (PriLOSEC OTC) 20 mg EC tablet [id number] Yes Take 1 tablet (20 mg) by mouth before breakfast. Do not crush, chew, or split. Esther Garduno MD Taking Active pen needle, diabetic 31 gauge x 5/16 needle [id number] Yes Use to inject 1-4 times daily as directed. Esther Garduno MD Taking Active sildenafil (Revatio) 20 mg tablet [id number] Yes Take 1 tablet 3 times a day by oral route for 90 days. Benja Mcghee MD Taking Active sulfaSALAzine (Azulfidine) 500 mg EC tablet [id number] Yes Take 500 mg by mouth in the morning and at bedtime. Dane Kerr MD Taking Active tacrolimus (Prograf) 0.5 mg capsule [id number] Yes Take 1 capsule (0.5 mg) by mouth in the morning and at bedtime. Jericho Abad NP Taking Active Immunization History Administered Date(s) Administered Influenza, Seasonal, Quadrivalent, Adjuvanted 04/30/2021 Influenza, Unspecified 02/09/2017 Influenza, injectable, quadrivalent 02/09/2019 Influenza, seasonal, injectable 06/27/2016, 02/13/2017 Pfizer SARS-CoV-2 Vaccination 07/12/2020, 08/02/2020, 04/30/2021 Pneumococcal Polysaccharide PPV23 02/01/2016 Patient Active Problem List Diagnosis Cataract Congestive heart failure ([facility]/HCC) Coronary atherosclerosis End-stage renal disease (CMS/HCC) History of renal transplant Peripheral vascular disease ([facility]/HCC) Increased infection risk status post immunosuppressive therapy Multiple congenital cysts of kidney Moderate mixed hyperlipidemia not requiring statin therapy COLD (chronic obstructive lung disease) ([facility]/HCC) Essential hypertension, benign Pleurisy with effusion Polycystic kidney DAVID (acute kidney injury) ([facility]) Hypomagnesemia Family History Problem Relation Name Age of Onset Diabetes Mother Hyperten (more content not included)... [facility] 07-08-2023 Note Left message for pat ient to take one extra lasix 20 mg today and we will retest tomorrow. Per Dr Bobbi dhaliwal. [facility] 07-08-[address] dk dhaliwal, patient added to Dr Moya schedule tomorrow am due to critical low sodium level of 124. Patient notified and will arrive between 8:30 am and 9 am for labs. [facility] 05-19-2023 Note Per phone order of Petr woo MD, Mag IV 3 grams ordered Mag 1.3. BOP notified. Pt notified by phone, states he recently resumed the Amiloride. He is not certain he will agree to return for the infusion. States he reviewed the low Mag level today with Jericho Doran EXPLOSIVE OPERATOR SUPERVISOR and was taking 8-9 tablets daily but is now reducing to Mag Oxide 800mg TID. [facility] 05-19-2023 Note 05/19/23 Chief Complaint Patient presents with Kidney Follow-up No concerns PCP: Jericho Mccarthy MD Txp Referring: Preferred Pharmacy: [id number] - [place], [place] - [address] [facility] [address] [facility] [address] [facility] [address] [address] [address] [facility] [address] [facility] [address] [place] [address] [address] [place] [address] Subjective Visit Vitals BP 120/62 (BP Location: [...] Dose Status aMILoride (Midamor) 5 mg tablet [id number] Yes Take 5 mg by mouth in the morning. Historical Provider, Taking Active amLODIPine (Norvasc) 10 mg tablet [id number] Yes Take 1 tablet (10 mg) by mouth in the morning. Benja Mcghee MD Taking Active atorvastatin (Lipitor) 10 mg tablet [id number] Yes Take 1 tablet (10 mg) by mouth every other day. Gita Egan NP Taking Active blood-glucose meter misc [id number] Yes Test daily before all meals/snacks and once before bedtime. With 100 lancets and strips Esther Garduno MD Taking Active carvedilol (Coreg) 12.5 mg tablet [id number] Yes Take 1 tablet (12.5 mg) by mouth with breakfast and with evening meal. Gita Egan NP Taking Active cinacalcet (Sensipar) 30 mg tablet [id number] Yes Take 1 tablet every day by oral route. Praveena Cohen MD Taking Active furosemide (Lasix) 20 mg tablet [id number] Yes take 1 tablet by mouth once daily Naga Bosch MD Taking Active insulin glargine (Lantus Solostar U-100 Insulin) 100 unit/mL (3 mL) injection pen [id number] Yes Inject 20 Units under the skin at bedtime. Esther Garduno MD Taking Active isopropyl alcohoL 70 % towelette [id number] Yes Test daily before all meals/snacks and once before bedtime. Esther Garduno MD Taking Active lisinopril 20 mg tablet [id number] Yes Take 1 tablet (20 mg) by mouth in the morning. Benja Mcghee MD Taking Active magnesium oxide (Mag-Ox) 400 mg (241.3 mg magnesium) tablet [id number] Yes take 2 tablets by mouth three times a day with meals Woodrow Root MD Taking Active metFORMIN (Glucophage) 500 mg tablet [id number] Yes Take 1 tablet (500 mg) by mouth with breakfast and with evening meal. Esther Garduno MD Taking Active mycophenolate (Myfortic) 180 mg EC tablet [id number] Yes Take 4 tablets (720 mg) by mouth in the morning and at bedtime. Jericho Abad NP Taking Active omeprazole OTC (PriLOSEC OTC) 20 mg EC tablet [id number] Yes Take 1 tablet (20 mg) by mouth before breakfast. Do not crush, chew, or split. Esther Garduno MD Taking Active pen needle, diabetic 31 gauge x 5/16 needle [id number] Yes Use to inject 1-4 times daily as directed. Esther Garduno MD Taking Active sildenafil (Revatio) 20 mg tablet [id number] Yes Take 1 tablet 3 times a day by oral route for 90 days. Benja Mcghee MD Taking Active sulfaSALAzine (Azulfidine) 500 mg EC tablet [id number] Yes Take 500 mg by mouth in the morning and at bedtime. Dane Kerr MD Taking Active tacrolimus (Prograf) 0.5 mg capsule [id number] Yes Take 1 capsule (0.5 mg) by [...] Brother ALS Brother (more content not included)... [facility] 05-14-2023 Note Patient states he mi ssed a few doses of magnesium and will get back started on and restart the amlodipine per Dr Dk dhaliwal. [facility] 04-30-2023 Note Attestation signed by Ananda [...] as a transfer from outside hospital in [place] for concerns of possible DKA, hyponatremia, [...] Dose Status aMILoride (Midamor) 5 mg tablet [id number] Take 1 tablet (5 mg) by mouth in the morning. Woodrow Root MD Active amLODIPine (Norvasc) 10 mg tablet [id number] Take 1 tablet (10 mg) by mouth in the morning. Benja Mcghee MD Active atorvastatin (Lipitor) 10 mg tablet [id number] Take 1 tablet (10 mg) by mouth every other day. Gita Egan NP Active carvedilol (Coreg) 12.5 mg tablet [id number] Take 1 tablet (12.5 mg) by mouth with breakfast and with evening meal. Gita Egan NP Active cinacalcet (Sensipar) 30 mg tablet [id number] Take 1 tablet every day by oral route. Praveena Cohen MD Active furosemide (Lasix) 20 mg tablet [id number] take 1 tablet by mouth once daily Naga Bosch MD Active lisinopril 20 mg tablet [id number] Take 1 tablet (20 mg) by mouth in the morning. Benja Mcghee MD Active magnesium oxide (Mag-Ox) 400 mg (241.3 mg magnesium) tablet [id number] take 2 tablets by mo (more content not included)... [facility] 04-30-2023 Note Hospital Medicine Discharge Summary Final Discharge Diagnosis: DKA Admission Diagnosis: DAVID (acute kidney injury) (CMS/[facility]) [N17.9] Hospital course: 72 y.o. male who came from home with DAVID with hyponatremia and uncontrolled hyperglycemia. This is a 72 years old gentleman with a medical history of end-stage renal disease s/p renal transplant 3 years ago here in [facility], peripheral vascular disease, pulmonary hypertension, CAD, and hypertension. Mixed hyperlipidemia, COPD, polycystic kidneys, cataract. Came in as transfer from the outside facility hospital in [place] for concern of possible uncontrolled hyperglycemia [...] Center 05/02/2023 9:00 AM Ramos Hendrickson PA-C [facility] ENDOCR [facility] 05/19/2023 9:00 AM Jericho Abad NP [...] These medications were sent to [id number] - [place], [place] - [address] [facility] [address] [place] [address] blood-glucose meter mis insulin glargine 100 unit/mL [...] [phone] - (more content not included)... [facility] 04-29-2023 Note Hospital Medicine Daily Progress Note - 04/29/2023 11:18 AM; Room: [address] [place] [address] Admission: 04/27/2023 10:59 PM; Length of stay: 2 days THE HOSPITALIST TEAM PREFERS TO USE my[employer] CHAT FOR COMMUNICATION 7AM-7PM. IF I DO NOT RESPOND WITHIN 15 MINUTES, PLEASE PAGE ME/CALL THROUGH THE CHUTE MAN. FROM 7PM-7AM, PLEASE PAGE [phone](COVR) Code Status: Full Code Barriers to Discharge: [...] Problems Principal Problem: DAVID (acute kidney injury) ([facility]) Assessment and Plan # DKA in newly [...] Academy of Nutrition and Dietetics and the [place] [employer] of Enteral and Parenteral Nutrition, meets [...] 0.67-0.73. Medial ki (more content not included)... [facility] 04-29-2023 Note Attestation signed by Ananda [...] as a transfer from outside hospital in [place] for concerns of possible DKA, hyponatremia, [...] Dose Status aMILoride (Midamor) 5 mg tablet [id number] Take 1 tablet (5 mg) by mouth in the morning. Woodrow Root MD Active amLODIPine (Norvasc) 10 mg tablet [id number] Take 1 tablet (10 mg) by mouth in the morning. Benja Mcghee MD Active atorvastatin (Lipitor) 10 mg tablet [id number] Take 1 tablet (10 mg) by mouth every other day. Gita Egan NP Active carvedilol (Coreg) 12.5 mg tablet [id number] Take 1 tablet (12.5 mg) by mouth with breakfast and with evening meal. Gita Egan NP Active cinacalcet (Sensipar) 30 mg tablet [id number] Take 1 tablet every day by oral route. Praveena Cohen MD Acti (more content not included)... [facility] 04-28-2023 Note Hospital Medicine Daily Progress Note - 04/28/2023 12:34 PM; Room: [facility]/5172-01 Admission: 04/27/2023 10:59 PM; Length of stay: 1 days THE HOSPITALIST TEAM PREFERS TO USE [employer] CHAT FOR COMMUNICATION 7AM-7PM. IF I DO NOT RESPOND WITHIN 15 MINUTES, PLEASE PAGE ME/CALL THROUGH THE CHUTE MAN. FROM 7PM-7AM, PLEASE PAGE [phone](COVR) Code Status: Full Code Barriers to Discharge: [...] Problems Principal Problem: DAVID (acute kidney injury) ([facility]) Assessment and Plan # DKA in newly [...] Academy of Nutrition and Dietetics and the [place] [employer] of Enteral and Parenteral Nutrition, meets [...] Cardiac silhouette is (more content not included)... [facility] 04-27-2023 Note . Hospital Medicine History and Physical 04/27/2023 11:16 PM THE HOSPITALIST TEAM PREFERS TO USE my[employer] CHAT FOR COMMUNICATION 7AM-7PM. IF I DO NOT RESPOND WITHIN 15 MINUTES, PLEASE PAGE ME/CALL THROUGH THE CHUTE MAN. FROM 7PM-7AM, PLEASE PAGE [phone](COVR) Chief Complaint No chief complaint on file. History of Present Illness Wm Suarez is an 72 y.o. male who came from home with DAIVD with hyponatremia and uncontrolled hyperglycemia. This is a 72 years old gentleman with a medical history of end-stage renal disease s/p renal transplant 3 years ago here in [facility], peripheral vascular disease, pulmonary hypertension, CAD, and hypertension. Mixed hyperlipidemia, COPD, polycystic kidneys, cataract. Came in as transfer from the outside facility hospital in [place] for concern of possible uncontrolled hyperglycemia [...] (CMS/HCC) 04/27/2023 COLD (chronic obstructive lung disease) ([facility]) 04/16/2023 Essential hypertension, benign 04/16/2023 Pleurisy with effusion 04/16/2023 Polycystic kidney 04/16/2023 Moderate mixed hyperlipidemia not requiring statin therapy 04/16/2022 Cataract 01/29/2022 Congestive heart failure ([facility]) 01/29/2022 Coronary atherosclerosis 01/29/2022 Multiple congenital cysts of kidney 01/29/2022 History of renal transplant 10/31/2021 Increased infection risk status post immunosuppressive therapy 10/31/2021 Peripheral vascular disease ([facility]) 01/23/2018 End-stage renal disease ([facility]) 07/22/2009 Assessment and Plan #Acute kidney injury [...] this hospital stay by a member of [facility]. Past Medical History Past Medical History: Diagnosis Date CHF (congestive heart failure) ([facility]) Chronic kidney disease Coronary artery disease Hypertension Pulmonary hypertension ([facility]) Past Surgical History Past Surgical History: Procedure [...] file Tobacco Use (more content not included)... [facility] 04-22-2023 Note [facility] - [facility] Subjective Wm Suarez is a 72 [...] overload/acute heart failure admission on 08/2018 at Located within [facility]. He had couple of dialysis [...] lower extremity edema. Cardiac catheterization 03/04/2019: 1. [id number] single-vessel coronary artery disease with 50% stenosis in the mid to distal circumflex and minimal disease in the LAD and RCA. 2. Moderate elevation of filling pressures. 3. Moderate pulmonary hypertension. 4. Preserved cardiac output and cardiac index. RA 8, RV 59/4, 12. PA (more content not included)... [facility] 04-02-2023 Note New standing lab ord er placed in today's outgoing mail. Following call from clinic [facility] that pt is @ [facility] for lab draws, faxed to [phone] new order and requested [place] fax all lab results to [facility] transplant as last monthly lab results were received September 2022. Pt notified order sent & mailed and to contact [facility] transplant monthly when labs are completed to confirm receipt or have testing @ [facility]. He acknowledged. Encouraged to FU next week with [facility] transplant. [facility] 11-13-2022 Note Received call from mariam huntley inquiring about Amiloride. Rx sent as ordered on Friday. Pt mailed tips for diarrhea stating liquid Maalox is not helpful. States he is taking six Mag tablets every day. Reviewed probiotic and Miralax tip with pt by phone. Verbalized understanding. [facility] 11-11-2022 Note Updated Dk MOSES by phone today Reviewed Mag level 1.3 and per MD phone order start Amiloride 5mg every day and to watch K levels. Detailed voicemail left on home phone [phone] with new Rx, reason for change and to watch K levels. Tac pending. No voicemail on listed cell phone. Spoke with mohancici Haq Paul emergency contact [phone] who sets up his meds. She was advised of new RX and she stated she is unsure if pt is taking Mag Oxide due to side effects of diarrhea. Advised to resume dosing and discussed tips for diarrhea including liquid Maalox with each dose and she verbalized understanding (states she had kidney transplant and takes Mag). Plans to fill amiloride dosing. [facility] 11-11-2022 Note Notified pt that his Hgb AIC 8.5 and to contact PCP for improved glucose control to preserve health of kidney transplant and general health. Pt verbalized understanding. [facility] 11-11-2022 Note 11/11/22 Chief Complaint Patient presents with Kidney Follow-up 6 mo follow No concerns PCP: Jericho Mccarthy MD Txp Referring: Preferred Pharmacy: [id number] - [place], [place] - [address] [facility] [address] [facility] [address] [facility] [place] - [address] [place] [id number] [address] Subjective Visit Vitals BP 134/61 (BP Location: Right arm, Patient Position: Sitting) Pulse 56 Temp 36.4 ???C (97.6 ???F) (Oral) Ht 1.676 m (5' 6 ) Wt 77.7 kg (171 lb 6.4 oz) BMI 27.66 kg/m??? Smoking Status Former BSA 1.9 m??? Allergies Allergen Reactions Nsaids (Non-Steroidal Anti-Inflammatory Drug) Medication Documentation Review Audit Reviewed by Judith Royal MA (Regulatory Affairs Analyst) on 11/11/22 at 0830 Medication Order Taking? Sig Documenting Provider Last Dose Status amLODIPine (Norvasc) 10 mg tablet [id number] Yes Take 1 tablet (10 mg) by mouth in the morning. Benja Mcghee MD Taking Active atorvastatin (Lipitor) 10 mg tablet [id number] Yes Take 1 tablet (10 mg) by mouth every other day. Gita Egan NP Taking Active carvedilol (Coreg) 12.5 mg tablet [id number] Yes Take 1 tablet (12.5 mg) by mouth with breakfast and with evening meal. Gita Egan NP Taking Active cinacalcet (Sensipar) 30 mg tablet [id number] Yes Take 1 tablet every day by oral route. Praveena Cohen MD Taking Active furosemide (Lasix) 20 mg tablet [id number] Yes take 1 tablet by mouth once daily Naga Bosch MD Taking Active lisinopril 20 mg tablet [id number] Yes Take 1 tablet by mouth in the morning. Historical Provider, Taking Active magnesium oxide (Mag-Ox) 400 mg (241.3 mg magnesium) tablet [id number] Yes take 2 tablets by mouth three times a day with meals Woodrow Root MD Taking Active mycophenolate (Myfortic) 180 mg EC tablet [id number] Yes Take 4 tablets (720 mg) by mouth in the morning and at bedtime. Jericho Abad NP Taking Active sildenafil (Revatio) 20 mg tablet [id number] Yes Take 1 tablet 3 times a day by oral route for 90 days. Gita Egan NP Taking Active sulfaSALAzine (Azulfidine) 500 mg EC tablet [id number] Yes Take 500 mg by mouth in the morning and at bedtime. Historical Provider, Taking Active tacrolimus (Prograf) 0.5 mg capsule [id number] Yes Take 1 capsule (0.5 mg) by [...] hypertension, heart roshan (more content not included)... [facility] 03-05-2022 Procedure note [facility] 01-21-2022 Evaluation note Encounter Date Diagnosis Assessment Notes Jan, Diarrhea (ICD-10 - R19.7) Colonoscopy Okay to take Imodium - 1 tablet every morning Jan, Fecal urgency (ICD-10 - R15.2) [facility] [employer] Other 05-01-2010 History general Narrative - Reported* [...] Hospitalization History Kidney Issue; on transplant list ([facility]) 02/2018 Hospitalization History pulmonary embolism 0 C2[facility] [employer] Other Evaluation noteNo assessment information available [facility] Work Phone: Evaluation note* Diagnosis Onset Date Resolution Status Diarrhea acute [facility] Work Phone: Hospital Discharge instructions [...] if you have any problems. -Office number [phone] Work Phone: Reason for visit NarrativePATIENT REFERRED BY DR. MCCARTHY FOR EVALUATION AND TREATMENT OF DIARRHEAFrontenac [employer] Other Summary Purpose Family History No Family [...] section and content) DATE CREATED AUTHOR [facility]/2019 [facility] DATE CREATED AUTHOR AUTHOR'S ORGANIZ ATION 11/02/2021 [facility] DATE CREATED AUTHOR AUTHOR'S ORGANIZ ATION 03/12/[address] [facility] DATE CREATED AUTHOR AUTHOR'S ORGANIZ ATION 10/18/2022 [facility] DATE CREATED AUTHOR AUTHOR'S ORGANIZ ATION 08/25/2023 [facility] EPIC DATE CREATED AUTHOR AUTHOR'S ORGANIZ ATION 11/01/2023 [facility] Care Teams (unrecognized sec tion and content) [...] BE BASED ON THE PRIMARY CLINICAL RECORDS. [facility] [employer] provides no warranty or guarantee of the accuracy or completeness of information in this document.
[2024-01-09 07:16] LABS: Basophils Percent Auto 0.5 % (0.2-2.0); Eosinophils Absolute Auto 0.4 10^3/uL (0.0-0.7); Hematocrit 35.3 % (42.0-54.0); Hemoglobin 11.7 g/dL (14.0-18.0); Immature Granulocytes Abs Auto 0.03 10^3/uL (0.00-0.03); Immature Granulocytes Pct Auto 0.5 % (0.0-0.5); Lymphocytes Absolute Auto 0.9 10^3/uL (1.2-3.8); Lymphocytes Percent Auto 13.1 % (20.5-60.0); Mean Corpuscular HGB Conc 33.1 g/dL (29.9-35.2); Mean Corpuscular Hemoglobin 29.8 pg (25.9-34.0); Mean Corpuscular Volume 90.1 fL (80.0-94.0); Mean Platelet Volume 9.3 fL (9.5-13.5); Monocytes Absolute Auto 0.5 10^3/uL (0.3-0.8); Monocytes Percent Auto 7.6 % (1.7-12.0); Neutrophils Absolute Auto 4.7 10^3/uL (1.4-6.5); Neutrophils Percent Auto 72.3 % (43.0-75.0); Platelet Count 253 10^3/uL (150-450); Red Blood Count 3.92 10^6/uL (4.70-6.10); Red Cell Distribution Width 13.9 % (11.0-15.0); White Blood Count 6.5 10^3/uL (4.0-11.0)
[2024-01-09 07:37] LABS: Alanine Aminotransferase 21 U/L (16-63); Albumin Globulin Ratio 1.2; Albumin Level 3.7 g/dL (3.4-5.0); Alkaline Phosphatase 109 U/L (46-116); Aspartate Amino Transferase 15 U/L (15-37); BUN Creatinine Ratio 15.2; Bilirubin Direct 0.1 mg/dL (0.0-0.2); Bilirubin Total 0.4 mg/dL (0.2-1.0); Calcium 8.7 mg/dL (8.5-10.1); Chloride 100 mmol/L (98-107); Estimated GFR (African America >60 (>=60); Estimated GFR (Non-African Ame >60 (>=60); Globulin 3.1 g/dL; Glucose 84 mg/dL (74-106); Magnesium 1.2 mg/dL (1.8-2.4); Phosphorus 3.9 mg/dL (2.6-4.7); Potassium 4.6 mmol/L (3.5-5.1); Sodium 135 mmol/L (136-145); Total Protein 6.8 g/dL (6.4-8.2); Uric Acid 6.1 mg/dL (3.5-7.2)
[2024-01-09 07:55] LABS: Carbon Dioxide 27.6 mmol/L (21.0-32.0)
[2024-01-12 20:07] LABS: Tacrolimus (FK506), Blood 4.8 ng/mL (2.0-20.0)
== END 2024-01-09 06:55 | disposition home or self-care (01) ==
LOC: LAB 06:55
PROVIDERS: PCP Family Medicine
DX: E13.9 Other specified diabetes mellitus without complications (principal); Z94.0 Kidney transplant status
CPT/HCPCS: 36415; 80053; 80197; 82248; 83735; 84100; 84550; 85025

== ENCOUNTER 2024-02-06 06:58 | Outpatient (OUT) | payer MEDICARE, OTHER, SELFPAY ==
--- OUTSIDE RECORDS SUMMARY | 2024-02-06 07:05 | XMS_ITS | CCD ---
Author Organization [facility] Care Team Providers Care Golf Coach Name Role Phone Tj Wells Unavailable [phone] MD Jericho Mccarthy Primary Care Provider [phone] MD Tj Wells Attending Provider Tj Wells Attending Unavailabl e Jericho Mccarthy Primary Care Unavailable Tj Wells Admitting Unavailabl e Tj Wells Admitting Unavailabl e Tj Wells Attending Unavailabl e Jericho Mccarthy Primary Care Unavailable MISC, DR ALVAREZ Attending Unavailable MISC, DR ALVAREZ Admitting Unavailable MISC, DR ALVAREZ Consulting Unavailable NADERER, DR JERICHO Floyd Primary Care Unavailable GULKANA, DR MERRITT Consulting Unavailable GULKANA, DR MERRITT Attending Unavailable GULKANA, DR MERRITT Admitting Unavailable NADERER, DR FERGUSON A Primary Care Unavailable MISC, DR ALVAREZ Attending Unavailable MISC, DR ALVAREZ Admitting Unavailable NADERER, DR FERGUSON A Primary Care Unavailable MISC, DR ALVAREZ Consulting Unavailable GULKANA, DR MERRITT Consulting Unavailable GULKANA, DR MERRITT Attending Unavailable NADERER, DR FERGUSON A Primary Care Unavailable GULKANA, DR MERRITT Admitting Unavailable MISC, DR ALVAREZ [...] FABIO, DR JERICHO Floyd Primary Care Unavailable IAN ., DR WINTERS Consulting Unavailable HAY ., DR WINTERS Attending Unavailable HAY ., DR WINTERS Admitting Unavailable MIS, DR ALVAREZ Admitting Unavailable MIS, DR ALVAREZ Consulting Unavailable FABIO, DR JERICHO Floyd Primary Care Unavailable MISC, DR ALVAREZ Attending Unavailable MISC, DR ALVAREZ Attending Unavailable MISC, DR ALVAREZ Admitting Unavailable MISC, DR ALVAREZ Consulting Unavailable FABIO, DR FERGUSON A Primary Care Unavailable JERICHO ABAD Attending Unavailable SAVZYAN, SANTANA Attending Unavailable AKRAWI, PRICE Attending Unavailable MOUKARBELBENJA Attending Unavailable KATKOMENDY Referring Unavailable CHRISTIAN, GYPSY Admitting Unavailable HORANI, ESTHER Attending Unavailable HORANI, ESTHER Referring Unavailable MERZA, NOORALDIN Referring Unavailable MERZA, NOORALDIN Referring Unavailable NADJERICHO PATIÑO Attending Unavailable FABIO, JERICHO Attending Unavailable RAJESH GAINES Attending Unavailable Allergies Allergy Classification Reported Allergen(s) Allergy Type Date of Onset Reaction(s) Facility (1 source) NSAIDs; Translations: [NSAIDS (NON-STEROIDAL ANTI-INFLAMMATOR Y DRUG)] Propensity to adverse reactions to drug (disorder) 2 [facility] Repository Medications Current Medications Medication Drug [...] 2 MCG IVP MWF DURING DIALYSIS PER [facility] (08/26/18) 5 ml sodium ferric gluconate complex 12.5 mg/ml injection (2 sources) Start: 07-08-2017 End: 03-05-2022 Sodium Ferric Gluconat-Sucrose (Ferrlecit) 62.5 mg/5 mL Solution Discontinued 125 MG IV Q14D July 08, 2017 1:00am March 05, 2022 7:07am RECEIVES FERRLECIT 125MG IVP EVERY OTHER FRIDAY (DOSE DUE 08/26/18 PER [facility]) Problems Active Problems Problem Classification Problem Date Documented Date Episodic/Chronic Chronic kidney disease (14 sources) Dependence on renal dialysis; Translations: [Dependence [...] Translations: [Hypertensive emergency] 08-26-2018 Chronic Other aftercare (4 sources) 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; 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 [facility] 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 [...] sources) Hypomagnesemia; Translations: [Hypomagnesemia] Onset: 05-19-19 Chronic Other screening for suspected conditions (not mental disorders or infectious disease) (2 sources) Other specified abnormal findings of blood chemistry; Translations: [Encounter for screening for malignant neoplasm of other genitourinary organs] Onset: 03-10-20 Episodic Pulmonary heart disease (2 sources) Primary pulmonary hypertension; Translations: [Primary pulmonary hypertension] Onset: 04-22-20 Chronic Respiratory failure; insufficiency; arrest (adult) (2 [...] sources) Kidney Follow-up; Translations: [Kidney Follow-up] Onset: 10-31-19 Past or Other Problems Problem Classification Problem [...] 11-16-2021 Episodic Other aftercare (1 source) 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; Translations: [OTH VISCERA WASHER CURRENT DRUG THERAPY] Onset: 03-10-2022 Episodic Other gastrointestinal disorders (3 sources) Diarrhea, unspecified; Translations: [Diarrhea] Onset: 11-16-2021 Resolved: 01-21-2022 Episodic Other gastrointestinal disorders (1 source) Fecal urgency Onset: 01-21-2022 Resolved: 01-21-2022 Episodic Results Test Name Value Interpretation Reference Range Facility Orders Onlyon 01-16-2024 Orders Only [id number] Roger Suarez 1950 M Date Provider Department Center 01/16/2024 [id number]-SQEZWSOSANTANA MARQUES TXP None Family History Problem Relation Age of Onset Diabetes Mother Hypertension Mother Coronary artery disease Mother Other Mother Cystic kidney disease Mother Hypertension Father Skin cancer Father Cystic kidney disease Father Cystic kidney disease Sister Heart disease Brother ALS Brother Cystic kidney disease Brother Family Status - Relation Status Age at Mother Father Sister Brother Normal [facility] Follow-Upon 10-31-2023 Follow-Up [id number] Roger Suarez 1950 M Date Provider Department Center 10/31/202340430-FIMWLWSSANTANA MARQUES TXP None Family History Problem Relation Age of Onset Diabetes Mother Hypertension Mother Coronary artery disease Mother Other Mother Cystic kidney disease Mother Hypertension Father Skin cancer Father Cystic kidney disease Father Cystic kidney disease Sister Heart disease Brother ALS Brother Cystic kidney disease Brother Family Status - Relation Status Age at Mother Father Sister Brother Level of Service:01748 [place] OFFICE/OUTPATIENT ESTABLISHED MOD MDM 30 MIN Reason for Visit and Comments: Kidney Follow-up [] - Pt has no concerns at this time. Normal [facility] BILIRUBIN, DIRECTon 07-09-19 24 Magnesium [Mass/Vol] 0.2 mg/dL Normal 0-0.2 [facility] Comment on above: Performed By: #### L [id number] #### [facility] ([facility]) [address] [place] [address] CBC WITH AUTO DIFFERENTIALon 07-09-2023 Basophils (Bld) [#/Vol] 0.03 10*3/uL Normal 0.00-0.20 [facility] Comment on above: Performed By: #### L [id number] #### [facility] ([facility]) [address] [place] [address] Basophils/100 WBC (Bld) 0.4 % Normal 0.0-1.0 [facility] Comment on above: Performed By: #### L [id number] #### [facility] ([facility]) [address] [place] [address] Eosinophils (Bld) [#/Vol] 0.16 10*3/uL Normal 0.00-0.50 [facility] Comment on above: Performed By: #### L [id number] #### [facility] ([facility] [address] [place] [address] Eosinophils/100 WBC (Bld) 1.9 % Normal 0.0-6.0 [facility] Comment on above: Performed By: #### L [id number] #### [facility] [address] [place] [address] Erythrocyte distribution width (RBC) [Ratio] 14.0 % Normal 11.5-15.0 [facility] Comment on above: Performed By: #### L [id number] #### [facility] ([facility]) [address] [place] [address] ERYTHROCYTE MEAN CORPUSCULAR HEMOGLOBIN CONCENTRATION (G/DL) BY AUTOMATED 34.4 g/dL Normal 32.0-35.0 [facility] Comment on above: Performed By: #### L [id number] #### [facility] ([facility]) [address] [place] [address] Hematocrit (Bld) [Volume fraction] 32.3 % Low 39.0-55.0 [facility] Comment on above: Performed By: #### L [id number] #### [facility] ([facility]) [address] [place] [address] Hemoglobin (Bld) [Mass/Vol] 11.1 g/dL Low 13.0-17.0 [facility] Comment on above: Performed By: #### L [id number] #### [facility] ([facility]) [address] [place] [address] Immature granulocytes (Bld) [#/Vol] 0.05 10*3/uL Normal 0.00-0.20 [facility] Comment on above: Performed By: #### L [id number] #### [facility] ([facility]) [address] [place] [address] Immature granulocytes/100 WBC (Bld) 0.6 % Normal 0.0-1.0 [facility] Comment on above: Performed By: #### L [id number] #### [facility] ([facility]) [address] [place] [address] Lymphocytes (Bld) [#/Vol] 1.08 10*3/uL Low 1.20-4.00 [facility] Comment on above: Performed By: #### L [id number] #### [facility] ([facility]) [address] [place] [address] Lymphocytes/100 WBC (Bld) 12.7 % Low 20.0-45.0 [facility] Comment on above: Performed By: #### L [id number] #### [facility] ([facility]) [address] [place] [address] MCH (RBC) [Entitic mass] 30.0 pg Normal 27.0-33.0 [facility] Comment on above: Performed By: #### L [id number] #### [facility] ([facility]) [address] [place] [address] MCV (RBC) [Entitic vol] 87.3 fL Normal 82.0-98.0 [facility] Comment on above: Performed By: #### L [id number] #### [facility] ([facility]) [address] [place] [address] Monocytes (Bld) [#/Vol] 0.67 10*3/uL Normal 0.10-1.00 [facility] Comment on above: Performed By: #### L [id number] #### [facility] ([facility]) [address] [place] [address] Monocytes/100 WBC (Bld) 7.9 % Normal 5.0-12.0 [facility] Comment on above: Performed By: #### L [id number] #### [facility] ([facility]) [address] [place] [address] Neutrophils (Bld) [#/Vol] 6.49 10*3/uL Normal 1.60-7.60 [facility] Comment on above: Performed By: #### L [id number] #### [facility] ([facility]) [address] [place] [address] Neutrophils/100 WBC (Bld) 76.5 % High 40.0-72.0 [facility] Comment on above: Performed By: #### L [id number] #### [facility] ([facility]) [address] [place] [address] NRBC (PER 100 WBCS) BY AUTOMATED COUNT 0.0 % Normal 0 [facility] Comment on above: Performed By: #### L [id number] #### [facility] ([facility]) [address] [place] [address] PLATELETS (10*3/UL) IN BLOOD AUTOMATED COUNT 271 10*3/uL Normal 150-400 [facility] Comment on above: Performed By: #### L [id number] #### [facility] ([facility]) [address] [place] [address] RBC (Bld) [#/Vol] 3.70 10*6/uL Low 4.20-5.70 [facility] Comment on above: Performed By: #### L [id number] #### [facility] ([facility]) [address] [place] [address] WBC (Bld) [#/Vol] 8.48 10*3/uL Normal 4.00-10.60 [facility] Comment on above: Performed By: #### L [id number] #### [facility] ([facility]) [address] [place] [address] COMPREHENSIVE METABOLIC PANE Claudio 07-09-2023 Albumin [Mass/Vol] 4.4 g/dL Normal 3.5-5.7 [facility] Comment on above: Performed By: #### L [id number] #### [facility] ([facility]) [address] [place] [address] ALP [Catalytic activity/Vol] 82 U/L Normal 34-104 [facility] Comment on above: Performed By: #### L [id number] #### [facility] [address] [place] [address] ALT [Catalytic activity/Vol] 9 U/L Normal 7-52 [facility] Comment on above: Performed By: #### L [id number] #### [facility] [address] [place] [address] Anion gap [Moles/Vol] 15 mmol/L Normal 7-20 [facility] Comment on above: Performed By: #### L [id number] #### [facility] [address] [place] [address] AST [Catalytic activity/Vol] 14 U/L Normal 13-39 [facility] Comment on above: Performed By: #### L [id number] #### [facility] [address] [place] [address] Bilirubin [Mass/Vol] 0.5 mg/dL Normal 0.3-1.0 [facility] Comment on above: Performed By: #### L [id number] #### [facility] ([facility]) [address] [place] [address] Calcium [Mass/Vol] 9.1 mg/dL Normal 8.6-10.3 [facility] Comment on above: Performed By: #### L [id number] #### [facility] ([facility]) [address] [place] [address] Chloride [Moles/Vol] 93 mmol/L Low 98-107 [facility] Comment on above: Performed By: #### L [id number] #### [facility] ([facility]) [address] [place] [address] CO2 [Moles/Vol] 22 mmol/L Normal 21-31 [facility] Comment on above: Performed By: #### L [id number] #### [facility] ([facility]) [address] [place] [address] Creatinine [Mass/Vol] 1.01 mg/dL Normal 0.70-1.30 [facility] Comment on above: Performed By: #### L [id number] #### [facility] ([facility]) [address] [place] [address] GLOMERULAR FILTRATION RATE ML/MIN/1.73 SQ M.PREDICTED 79.5 mL/min/1.73m*2 Normal >60.0 [facility] Comment on above: Result Comment: [facility]???s estimated glomerular filtration rate (eGFR) will [...] individuals. Performed By: #### L [id number] #### [facility] ([facility]) [address] [place] [address] Glucose [Mass/Vol] 86 mg/dL Normal 70-100 [facility] Comment on above: Performed By: #### L [id number] #### [facility] ([facility]) [address] [place] [address] Potassium [Moles/Vol] 5.2 mmol/L High 3.5-5.1 [facility] Comment on above: Performed By: #### L [id number] #### [facility] ([facility]) [address] [place] [address] Protein [Mass/Vol] 6.8 g/dL Normal 6.0-8.3 [facility] Comment on above: Performed By: #### L [id number] #### [facility] ([facility]) [address] [place] [address] Sodium [Moles/Vol] 125 mmol/L Low 136-145 [facility] Comment on above: Performed By: #### L [id number] #### [facility] ([facility]) [address] [place] [address] Urea nitrogen [Mass/Vol] 17 mg/dL Normal 7-25 [facility] Comment on above: Performed By: #### L [id number] #### [facility] ([facility]) [address] [place] [address] UREA NITROGEN/CREATININE (MASS RATIO) IN SER/PLAS 16.8 Normal [facility] Comment on above: Performed By: #### L [id number] #### [facility] ([facility]) [address] [place] [address] Follow-Upon 07-09-2023 Follow-Up [id number] Roger Suarez 1950 M Date Provider Department Center 07/09/2023 [id number]-HEOPJRPRICE MENDEZ TXLazara None Family History Problem Relation Age of Onset Diabetes Mother Hypertension Mother Coronary artery disease Mother Other Mother Cystic kidney disease Mother Hypertension Father Skin cancer Father Cystic kidney disease Father Cystic kidney disease Sister Heart disease Brother ALS Brother Cystic kidney disease Brother Family Status - Relation Status Age at Mother Father Sister Brother Level of Service:[id number] [place] OFFICE/OUTPATIENT ESTABLISHED LOW MDM 20 MIN Reason for Visit and Comments: Kidney Follow-up [[id number]] - Patient has no major concerns today Normal [facility] HEMOGLOBIN A1Con 07-09-2023 Glucose [Mass/Vol] 160 mg/dL Normal [facility] Comment on above: Performed By: #### L [id number] #### [facility] ([facility]) [address] [place] [address] HbA1c (Bld) [Mass fraction] 7.2 % High 4.0-6.0 [facility] Comment on above: Performed By: #### L [id number] #### [facility] ([facility]) [address] [place] [address] Labon 07-09-2023 Lab [id number] Roger Suarez 1950 M Date Provider Department Center 07/09/2023 [id number] DRAW STATION KXT Draw [facility] Family History Problem Relation Age of Onset Diabetes Mother Hypertension Mother Coronary artery disease Mother Other Mother Cystic kidney disease Mother Hypertension Father Skin cancer Father Cystic kidney disease Father Cystic kidney disease Sister Heart disease Brother ALS Brother Cystic kidney disease Brother Family Status - Relation Status Age at Mother Father Sister Brother Normal [facility] MAGNESIUMon 07-09-2023 Magnesium [Mass/Vol] 1.5 mg/dL Low 1.9-2.7 [facility] Comment on above: Performed By: #### L [id number] #### [facility] ([facility]) [address] [place] [address] OSMOLALITYon 07-09-2023 OSMOLALITY MEASURED 272 mOsm/kg Low 275-295 [facility] Comment on above: Result Comment: Test Performed by [employer] [address] [place] [id number] - Released 07/09/2023 16:01 Performed By: #### L [id number] #### [facility] ([facility]) [address] [place] [address] Orders Onlyon 07-09-2023 Orders Only [id number] Roger Suarez 1950 M Date Provider Department [...] Age at Mother Father Sister Brother Normal [facility] PHOSPHORUSon 07-09-2023 Magnesium [Mass/Vol] 4.6 mg/dL Normal 2.5-5.0 [facility] Comment on above: Performed By: #### L [id number] #### [facility] ([facility]) [address] [place] [address] TACROLIMUS LEVELon 4 Tacrolimus (Bld) [Mass/Vol] 4.3 ng/mL Low 5.0-20.0 [facility] Comment on above: Result Comment: The [facility] [facility] Tacrolimus assay is a delayed one-step immunoassay for the quantitative determination of tacrolimus in human whole blood using the chemiluminescent microparticle immunoassay (CMIA) technology with flexible assay protocols, referred to as Chemiflex. Performed By: #### L [id number] ####[facility] ([facility])[address] [place] [address] URIC ACIDon 07-09-2023 Magnesium [Mass/Vol] 6.2 mg/dL Normal 4.4-7.6 [facility] Comment on above: Performed By: #### L [id number] #### [facility] ([facility]) [address] [place] [address] Orders Onlyon 06-11-2023 Orders Only [id number] Roger Suarez 1950 M Date Provider Department Center 06/11/2023 JERICHO [facility] Family History Problem Relation Age of Onset Diabetes Mother Hypertension Mother Coronary artery disease Mother Other Mother Cystic kidney disease Mother Hypertension Father Skin cancer Father Cystic kidney disease Father Cystic kidney disease Sister Heart disease Brother ALS Brother Cystic kidney disease Brother Family Status - Relation Status Age at Mother Father Sister Brother Normal [facility] BILIRUBIN, DIRECTon 05-19-19 24 Magnesium [Mass/Vol] 0.1 mg/dL Normal 0-0.2 [facility] Comment on above: Performed By: #### L [id number] #### [facility] ([facility]) [address] [place] [address] CBC WITH AUTO DIFFERENTIALon 05-19-2023 Basophils (Bld) [#/Vol] 0.03 10*3/uL Normal 0.00-0.20 [facility] Comment on above: Performed By: #### L [id number] ####[facility] ([facility])[address] [place] [address] Basophils/100 WBC (Bld) 0.4 % Normal 0.0-1.0 [facility] Comment on above: Performed By: #### L [id number] ####[facility] ([facility])[address] [place] [address] Eosinophils (Bld) [#/Vol] 0.18 10*3/uL Normal 0.00-0.50 [facility] Comment on above: Performed By: #### L [id number] ####[facility] ([facility])[address] [place] [address] Eosinophils/100 WBC (Bld) 2.7 % Normal 0.0-6.0 [facility] Comment on above: Performed By: #### L [id number] ####[facility] ([facility])[address] [place] [address] Erythrocyte distribution width (RBC) [Ratio] 13.7 % Normal 11.5-15.0 [facility] Comment on above: Performed By: #### L [id number] ####[facility] ([facility]ER)[address] [place] [address] ERYTHROCYTE MEAN CORPUSCULAR HEMOGLOBIN CONCENTRATION (G/DL) BY AUTOMATED 32.9 g/dL Normal 32.0-35.0 [facility] Comment on above: Performed By: #### L [id number] ####[facility] ([facility])[address] [place] [address] Hematocrit (Bld) [Volume fraction] 34.0 % Low 39.0-55.0 [facility] Comment on above: Performed By: #### L [id number] ####[facility] ([facility]ER)[address] [place] [address] Hemoglobin (Bld) [Mass/Vol] 11.2 g/dL Low 13.0-17.0 [facility] Comment on above: Performed By: #### L [id number] ####[facility] ([facility])[address] [place] [address] Immature granulocytes (Bld) [#/Vol] 0.02 10*3/uL Normal 0.00-0.20 [facility] Comment on above: Performed By: #### L [id number] ####[facility] ([facility])[address] [place] [address] Immature granulocytes/100 WBC (Bld) 0.3 % Normal 0.0-1.0 [facility] Comment on above: Performed By: #### L [id number] ####[facility] ([facility])[address] [place] [address] Lymphocytes (Bld) [#/Vol] 0.80 10*3/uL Low 1.20-4.00 [facility] Comment on above: Performed By: #### L [id number] ####[facility] ([facility])[address] [place] [address] Lymphocytes/100 WBC (Bld) 11.9 % Low 20.0-45.0 [facility] Comment on above: Performed By: #### L [id number] ####[facility] ([facility])[address] [place] [address] MCH (RBC) [Entitic mass] 29.4 pg Normal 27.0-33.0 [facility] Comment on above: Performed By: #### L [id number] ####[facility] ([facility])[address] [place] [address] MCV (RBC) [Entitic vol] 89.2 fL Normal 82.0-98.0 [facility] Comment on above: Performed By: #### L [id number] ####[facility] ([facility])[address] [place] [address] Monocytes (Bld) [#/Vol] 0.54 10*3/uL Normal 0.10-1.00 [facility] Comment on above: Performed By: #### L [id number] ####[facility] ([facility]ER)[address] [place] [address] Monocytes/100 WBC (Bld) 8.0 % Normal 5.0-12.0 [facility] Comment on above: Performed By: #### L [id number] ####[facility] [place] [address] Neutrophils (Bld) [#/Vol] 5.14 10*3/uL Normal 1.60-7.60 [facility] Comment on above: Performed By: #### L [id number] ####[facility] ([facility])[address] [place] [address] Neutrophils/100 WBC (Bld) 76.7 % High 40.0-72.0 [facility] Comment on above: Performed By: #### L [id number] ####[facility] ([facility])[address] [place] [address] NRBC (PER 100 WBCS) BY AUTOMATED COUNT 0.0 % Normal 0 [facility] Comment on above: Performed By: #### L [id number] ####[facility] ([facility])[address] [place] [address] PLATELETS (10*3/UL) IN BLOOD AUTOMATED COUNT 271 10*3/uL Normal 150-400 [facility] Comment on above: Performed By: #### L [id number] ####[facility] ([facility])[address] [place] [address] RBC (Bld) [#/Vol] 3.81 10*6/uL Low 4.20-5.70 [facility] Comment on above: Performed By: #### L [id number] ####[facility] [place] [address] WBC (Bld) [#/Vol] 6.71 10*3/uL Normal 4.00-10.60 [facility] Comment on above: Performed By: #### L [id number] ####[facility] ([facility]ER)[address] [place] [address] COMPREHENSIVE METABOLIC PANE Claudio 01-08-2024 Albumin [Mass/Vol] 4.5 g/dL Normal 3.5-5.7 [facility] Comment on above: Performed By: #### L [id number] #### [facility] ([facility]) [address] [place] [address] ALP [Catalytic activity/Vol] 85 U/L Normal 34-104 [facility] Comment on above: Performed By: #### L [id number] #### [facility] ([facility]) [address] [place] [address] ALT [Catalytic activity/Vol] 10 U/L Normal 7-52 [facility] Comment on above: Performed By: #### L [id number] #### [facility] ([facility]) [address] [place] [address] Anion gap [Moles/Vol] 15 mmol/L Normal 7-20 [facility] Comment on above: Performed By: #### L [id number] #### [facility] ([facility]) [address] [place] [address] AST [Catalytic activity/Vol] 13 U/L Normal 13-39 [facility] Comment on above: Performed By: #### L [id number] #### [facility] ([facility]) [address] [place] [address] Bilirubin [Mass/Vol] 0.5 mg/dL Normal 0.3-1.0 [facility] Comment on above: Performed By: #### L [id number] #### [facility] ([facility]) [address] [place] [address] Calcium [Mass/Vol] 9.1 mg/dL Normal 8.6-10.3 [facility] Comment on above: Performed By: #### L [id number] #### [facility] ([facility]) [address] [place] [address] Chloride [Moles/Vol] 99 mmol/L Normal 98-107 [facility] Comment on above: Performed By: #### L [id number] #### [facility] ([facility]) [address] [place] [address] CO2 [Moles/Vol] 22 mmol/L Normal 21-31 [facility] Comment on above: Performed By: #### L [id number] #### [facility] ([facility]) [address] [place] [address] Creatinine [Mass/Vol] 0.85 mg/dL Normal 0.70-1.30 [facility] Comment on above: Performed By: #### L [id number] #### [facility] ([facility]) [address] [place] [address] GLOMERULAR FILTRATION RATE ML/MIN/1.73 SQ M.PREDICTED 92.9 mL/min/1.73m*2 Normal >60.0 [facility] Comment on above: Result Comment: [facility]???s estimated glomerular filtration rate (eGFR) will [...] individuals. Performed By: #### L [id number] #### [facility] ([facility]) [address] [place] [address] Glucose [Mass/Vol] 107 mg/dL High 70-100 [facility] Comment on above: Performed By: #### L [id number] #### [facility] ([facility]) [address] [place] [address] Potassium [Moles/Vol] 4.9 mmol/L Normal 3.5-5.1 [facility] Comment on above: Performed By: #### L [id number] #### [facility] ([facility]) [address] [place] [address] Protein [Mass/Vol] 6.7 g/dL Normal 6.0-8.3 [facility] Comment on above: Performed By: #### L [id number] #### [facility] ([facility]) [address] [place] [address] Sodium [Moles/Vol] 131 mmol/L Low 136-145 [facility] Comment on above: Performed By: #### L [id number] #### [facility] ([facility]) [address] [place] [address] Urea nitrogen [Mass/Vol] 15 mg/dL Normal 7-25 [facility] Comment on above: Performed By: #### L [id number] #### [facility] ([facility]) [address] [place] [address] UREA NITROGEN/CREATININE (MASS RATIO) IN SER/PLAS 17.6 Normal [facility] Comment on above: Performed By: #### L [id number] #### [facility] ([facility]) [address] [place] [address] Follow-Upon 05-19-2023 Follow-Up [id number] Roger Suarez 1950 M Date Provider Department [...] at Mother Father Sister Brother Level of Service:49658 VA OFFICE/OUTPATIENT ESTABLISHED MOD MDM 30 MIN Reason for Visit and Comments: Kidney Follow-up [[id number]] - No concerns Normal [facility] LIPID PANELon 05-19-2023 CHOL/HDL 1.9 mg/dL Normal [facility] Comment on above: Performed By: #### L [id number] #### [facility] [address] [place] [address] Cholesterol [Mass/Vol] 88 mg/dL Low 120-200 [facility] Comment on above: Performed By: #### L [id number] #### [facility] ([facility]) [address] [place] [address] Magnesium [Mass/Vol] 53 mg/dL Normal 40-149 [facility] Comment on above: Result Comment: TRIG LYCERIDE REFERENCE RANGE: 20 YEARS AND OLDER CARDIOVASCULAR RISK LESS THAN 150 mg/dL LOW RISK 150 TO 199 mg/dL BORDERLINE RISK 200 mg/dL AND GREATER HIGH RISK Performed By: #### L [id number] #### [facility] ([facility]) [address] [place] [address] Magnesium [Mass/Vol] 30 mg/dL Normal 0-160 [facility] Comment on above: Performed By: #### L [id number] #### [facility] ([facility]) [address] [place] [address] Magnesium [Mass/Vol] 47 mg/dL Normal 23-92 [facility] Comment on above: Performed By: #### L [id number] #### [facility] ([facility]) [address] [place] [address] NON HDL CHOL. (LDL+VLDL) 41 Normal [facility] Comment on above: Performed By: #### L [id number] #### [facility] ([facility]) [address] [place] [address] TOTAL VLDL-C 11 mg/dL Normal 0-40 [facility] Comment on above: Performed By: #### L [id number] #### [facility] ([facility]) [address] [place] [address] Labon 05-19-2023 Lab [id number] Roger Suarez 1950 M Date Provider Department Center 05/19/2023 [id number] DRAW STATION [facility] Family History Problem Relation Age of Onset Diabetes Mother Hypertension Mother Coronary artery disease Mother Other Mother Cystic kidney disease Mother Hypertension Father Skin cancer Father Cystic kidney disease Father Cystic kidney disease Sister Heart disease Brother ALS Brother Cystic kidney disease Brother Family Status - Relation Status Age at Mother Father Sister Brother Normal [facility] MAGNESIUMon 05-19-2023 Magnesium [Mass/Vol] 1.3 mg/dL Low 1.9-2.7 [facility] Comment on above: Performed By: #### L [id number] #### [facility] ([facility]) [address] [place] [address] Orders Onlyon 05-19-2023 Orders Only [id number] Roger Suarez 1950 M Date Provider Department [...] Age at Mother Father Sister Brother Normal [facility] PHOSPHORUSon 05-19-2023 Magnesium [Mass/Vol] 4.5 mg/dL Normal 2.5-5.0 [facility] Comment on above: Performed By: #### L [id number] #### [facility] ([facility]) [address] [place] [address] TACROLIMUS LEVELon Tacrolimus (Bld) [Mass/Vol] 6.0 ng/mL Normal 5.0-20.0 [facility] Comment on above: Result Comment: The [facility] [facility] Tacrolimus assay is a delayed one-step immunoassay for the quantitative determination of tacrolimus in human whole blood using the chemiluminescent microparticle immunoassay (CMIA) technology with flexible assay protocols, referred to as Chemiflex. Performed By: #### L [id number] ####[facility] ([facility])[address] [place] [address] TESTOSTERONE, FREE AND TOTAL , AND SHBGon 05-19-2023 SEX HORMONE BINDING GLOBULIN (NMOL/L) IN SER/PLAS 61 nmol/L Normal 11-80 [facility] Comment on above: Performed By: #### L [id number] #### [facility] [address] [place] [address] TESTOSTERONE (NG/DL) IN SER/PLAS 440 ng/dL Normal 220-1000 [facility] Comment on above: Performed By: #### L [id number] #### [facility] [address] [place] [address] TESTOSTERONE FREE (NG/ML) IN SER/PLAS 59.5 pg/mL Normal 47-244 [facility] Comment on above: Result Comment: The concentration of free testosterone is derived from a mathematical expression based on the constant for the binding of testosterone to albumin and/or sex hormone binding globulin. Test Performed by [employer] [address] [place] [address] - Released 05/19/2023 15:01 Performed By: #### L [id number] #### [facility] [address] [place] [address] URIC ACIDon 05-19-2023 Magnesium [Mass/Vol] 6.2 mg/dL Normal 4.4-7.6 [facility] Comment on above: Performed By: #### L [id number] #### [facility] ([facility]) [address] [place] [address] Documentationon 05-14-2023 Documentation [id number] Roger Suarez 1950 M Date Provider Department [...] Age at Mother Father Sister Brother Normal [facility] 30on 04-30-2023 30 Daily Case Managemen t Update Multidisciplinary rounds have been completed. Barriers to Discharge: MR for DC Home to follow up with [employer] on Friday. New Diabetic Supply Scripts have been faxed to his pharmacy in [place], [place]. Diet: Dietary Orders (From admission, onward) Start Ordered 04/29/231711 Special Kitchen Request Once Comments: Please send a salad with ham, roque, shredded cheddar cheese and onions with slovenian dressing. Layered chocolate cake and a diet cristiano vincenzo. 04/29/23 1714 04/28/23 1858 Regular Diet HF/Cirrhosis/CKD/ESRD (2gm NA); Diabetic [...] Answer: New diagnosis DM2 04/30/23 1109 Normal [facility] 30 Problem: Pain - Adul t [...] and maintained or improved Outcome: Progressing Normal [facility] BASIC METABOLIC PANELon 12-2 Anion gap [Moles/Vol] 12 mmol/L Normal 7-20 [facility] Comment on above: Performed By: #### L [id number] #### [facility] ([facility]) [address] [place] [address] Calcium [Mass/Vol] 8.7 mg/dL Normal 8.6-10.3 [facility] Comment on above: Performed By: #### L [id number] #### [facility] ([facility]) [address] [place] [address] Chloride [Moles/Vol] 102 mmol/L Normal 98-107 [facility] Comment on above: Performed By: #### L [id number] #### [facility] ([facility]) [address] [place] [address] CO2 [Moles/Vol] 24 mmol/L Normal 21-31 [facility] Comment on above: Performed By: #### L [id number] #### [facility] ([facility]) [address] [place] [address] Creatinine [Mass/Vol] 0.80 mg/dL Normal 0.70-1.30 [facility] Comment on above: Performed By: #### L [id number] #### [facility] ([facility]) [address] [address] GLOMERULAR FILTRATION RATE ML/MIN/1.73 SQ M.PREDICTED 94.6 mL/min/1.73m*2 Normal >60.0 [facility] Comment on above: Result Comment: [facility]???s estimated glomerular filtration rate (eGFR) will [...] group of individuals. Performed By: #### L [id number] #### [facility] ([facility]) [address] [place] [address] Glucose [Mass/Vol] 160 mg/dL High 70-100 [facility] Comment on above: Performed By: #### L [id number] #### [facility] ([facility]) [address] [place] [address] Potassium [Moles/Vol] 4.2 mmol/L Normal 3.5-5.1 [facility] Comment on above: Performed By: #### L [id number] #### [facility] ([facility]) [address] [place] [address] Sodium [Moles/Vol] 134 mmol/L Low 136-145 [facility] Comment on above: Performed By: #### L [id number] #### [facility] [address] [place] [address] Urea nitrogen [Mass/Vol] 14 mg/dL Normal 7-25 [facility] Comment on above: Performed By: #### L [id number] #### [facility] [address] [place] [address] UREA NITROGEN/CREATININE (MASS RATIO) IN SER/PLAS 17.5 Normal [facility] Comment on above: Performed By: #### L [id number] #### [facility] ([facility]) [address] [place] [address] CBCon 04-30-2023 Erythrocyte distribution width (RBC) [Ratio] 13.0 % Normal 11.5-15.0 [facility] Comment on above: Performed By: #### L [id number] #### [facility] ([facility]) [address] [place] [address] ERYTHROCYTE MEAN CORPUSCULAR HEMOGLOBIN CONCENTRATION (G/DL) BY AUTOMATED 33.9 g/dL Normal 32.0-35.0 [facility] Comment on above: Performed By: #### L [id number] #### [facility] ([facility]) [address] [place] [address] Hematocrit (Bld) [Volume fraction] 28.0 % Low 39.0-55.0 [facility] Comment on above: Performed By: #### L [id number] #### [facility] ([facility]) [address] [place] [address] Hemoglobin (Bld) [Mass/Vol] 9.5 g/dL Low 13.0-17.0 [facility] Comment on above: Performed By: #### L [id number] #### [facility] [address] [place] [address] MCH (RBC) [Entitic mass] 29.3 pg Normal 27.0-33.0 [facility] Comment on above: Performed By: #### L [id number] #### [facility] [address] [place] [address] MCV (RBC) [Entitic vol] 86.4 fL Normal 82.0-98.0 [facility] Comment on above: Performed By: #### L [id number] #### [facility] ([facility]) [address] [place] [address] PLATELETS (10*3/UL) IN BLOOD AUTOMATED COUNT 232 10*3/uL Normal 150-400 [facility] Comment on above: Performed By: #### L [id number] #### [facility] ([facility]) [address] [place] [address] RBC (Bld) [#/Vol] 3.24 10*6/uL Low 4.20-5.70 [facility] Comment on above: Performed By: #### L [id number] #### [facility] ([facility]) [address] [place] [address] WBC (Bld) [#/Vol] 5.11 10*3/uL Normal 4.00-10.60 [facility] Comment on above: Performed By: #### L [id number] #### [facility] ([facility]) [address] [place] [address] MAGNESIUMon 04-30-2023 Magnesium [Mass/Vol] 1.2 mg/dL Low 1.9-2.7 [facility] Comment on above: Performed By: #### L [id number] ####[facility] ([facility])[address] [place] [address] PHOSPHORUSon 04-30-2023 Magnesium [Mass/Vol] 3.3 mg/dL Normal 2.5-5.0 [facility] Comment on above: Performed By: #### L [id number] ####[facility] ([facility])[address] [place] [address] POCT GLUCOSE METER UNSOLICIT ED RESULTSon 04-30-2023 Glucose [Mass/Vol] 251 mg/dL High 70-105 [facility] Comment on above: Order Comment: Waive d Testing in the ED is performed under the ED CLIA certificate #[id number]. Result Comment: [email or web address] Performed By: #### L [id number] ####[facility] ([facility])[address] [place] [address] Glucose [Mass/Vol] 146 mg/dL High 70-105 [facility] Comment on above: Order Comment: Waive d Testing in the ED is performed under the ED CLIA certificate #[id number]. Result Comment: [email or web address] Performed By: #### L [id number] #### [facility] ([facility]) [address] [place] [address] TACROLIMUS LEVELon 3 Tacrolimus (Bld) [Mass/Vol] 6.1 ng/mL Normal 5.0-20.0 [facility] Comment on above: Result Comment: The [facility] [facility] Tacrolimus assay is a delayed one-step immunoassay for the quantitative determination of tacrolimus in human whole blood using the chemiluminescent microparticle immunoassay (CMIA) technology with flexible assay protocols, referred to as Chemiflex. Performed By: #### L [id number] #### [facility] ([facility]) [address] [place] [address] 30on 04-29-2023 30 Daily Case Managemen t [...] roque, shredded cheddar cheese and onions with slovenian dressing. Layered chocolate cake and a diet cristiano vincenzo. 04/29/23171304/28/231857 Regular Diet HF/Cirrhosis/CKD/ESRD (2gm NA); Diabetic Male (carb 60g/meal) Diet effective now Question Answer Comment Room Service? 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 Level of Consultation Consultation and Management 04/27/23 231 Normal [facility] BASIC METABOLIC PANELon 04-11 Anion gap [Moles/Vol] 13 mmol/L Normal 7-20 [facility] Comment on above: Performed By: #### L [id number] #### [facility] ([facility]) [address] [place] [address] Calcium [Mass/Vol] 8.7 mg/dL Normal 8.6-10.3 [facility] Comment on above: Performed By: #### L [id number] #### [facility] [address] [place] [address] Chloride [Moles/Vol] 103 mmol/L Normal 98-107 [facility] Comment on above: Performed By: #### L [id number] #### [facility] [address] [place] [address] CO2 [Moles/Vol] 22 mmol/L Normal 21-31 [facility] Comment on above: Performed By: #### L [id number] #### [facility] [address] [place] [address] Creatinine [Mass/Vol] 0.96 mg/dL Normal 0.70-1.30 [facility] Comment on above: Performed By: #### L [id number] #### [facility] ([facility]) [address] [place] [address] GLOMERULAR FILTRATION RATE ML/MIN/1.73 SQ M.PREDICTED 84.5 mL/min/1.73m*2 Normal >60.0 [facility] Comment on above: Result Comment: [facility]???s estimated glomerular filtration rate (eGFR) will [...] individuals. Performed By: #### L [id number] #### [facility] ([facility]) [address] [place] [address] Glucose [Mass/Vol] 175 mg/dL High 70-100 [facility] Comment on above: Performed By: #### L [id number] #### [facility] ([facility]) [address] [place] [address] Potassium [Moles/Vol] 4.5 mmol/L Normal 3.5-5.1 [facility] Comment on above: Performed By: #### L [id number] #### [facility] ([facility]) [address] [place] [address] Sodium [Moles/Vol] 133 mmol/L Low 136-145 [facility] Comment on above: Performed By: #### L [id number] #### [facility] ([facility]) [address] [place] [address] Urea nitrogen [Mass/Vol] 29 mg/dL High 7-25 [facility] Comment on above: Performed By: #### L [id number] #### [facility] [address] [place] [address] UREA NITROGEN/CREATININE (MASS RATIO) IN SER/PLAS 30.2 Normal [facility] Comment on above: Performed By: #### L [id number] #### [facility] ([facility]) [address] [place] [address] Anion gap [Moles/Vol] 16 mmol/L Normal 7-20 [facility] Comment on above: Performed By: #### L [id number] #### [facility] ([facility]) [address] [place] [address] Calcium [Mass/Vol] 8.7 mg/dL Normal 8.6-10.3 [facility] Comment on above: Performed By: #### L [id number] #### [facility] ([facility]) [address] [place] [address] Chloride [Moles/Vol] 102 mmol/L Normal 98-107 [facility] Comment on above: Performed By: #### L [id number] #### [facility] [address] [place] [address] CO2 [Moles/Vol] 19 mmol/L Low 21-31 [facility] Comment on above: Performed By: #### L [id number] #### [facility] [address] [place] [address] Creatinine [Mass/Vol] 1.02 mg/dL Normal 0.70-1.30 [facility] Comment on above: Performed By: #### L [id number] #### [facility] ([facility]) [address] [place] [address] GLOMERULAR FILTRATION RATE ML/MIN/1.73 SQ M.PREDICTED 78.6 mL/min/1.73m*2 Normal >60.0 [facility] Comment on above: Result Comment: [facility]???s estimated glomerular filtration rate (eGFR) will [...] individuals. Performed By: #### L [id number] #### [facility] [address] [place] [address] Glucose [Mass/Vol] 206 mg/dL High 70-100 [facility] Comment on above: Performed By: #### L [id number] #### [facility] ([facility]) [address] [place] [address] Potassium [Moles/Vol] 4.8 mmol/L Normal 3.5-5.1 [facility] Comment on above: Performed By: #### L [id number] #### [facility] ([facility]) [address] [place] [address] Sodium [Moles/Vol] 132 mmol/L Low 136-145 [facility] Comment on above: Performed By: #### L [id number] #### [facility] ([facility]) [address] [place] [address] Urea nitrogen [Mass/Vol] 31 mg/dL High 7-25 [facility] Comment on above: Performed By: #### L [id number] #### [facility] ([facility]) [address] [place] [address] UREA NITROGEN/CREATININE (MASS RATIO) IN SER/PLAS 30.4 Normal [facility] Comment on above: Performed By: #### L [id number] #### [facility] ([facility]) [address] [place] [address] POCT GLUCOSE METER UNSOLICIT ED RESULTSon 04-29-2023 Glucose [Mass/Vol] 151 mg/dL High 70-105 [facility] Comment on above: Order Comment: Waive d Testing in the ED is performed under the ED CLIA certificate #[id number]. Result Comment: [email or web address] dic Performed By: #### L [id number] ####[facility] ([facility])[address] [place] [address] Glucose [Mass/Vol] 166 mg/dL High 70-105 [facility] Comment on above: Order Comment: Waive d Testing in the ED is performed under the ED CLIA certificate #[id number]. Result Comment: lzar ate Performed By: #### L [id number] #### [facility] ([facility]) [address] [place] [address] Glucose [Mass/Vol] 147 mg/dL High 70-105 [facility] Comment on above: Order Comment: Waive d Testing in the ED is performed under the ED CLIA certificate #[id number]. Result Comment: [email or web address] Performed By: #### L [id number] #### [facility] [address] [place] [address] Glucose [Mass/Vol] 145 mg/dL High 70-105 [facility] Comment on above: Order Comment: Waive d Testing in the ED is performed under the ED CLIA certificate #[id number]. Result Comment: [email or web address] Performed By: #### L [id number] #### [facility] [address] [place] [address] TACROLIMUS LEVELon Tacrolimus (Bld) [Mass/Vol] 8.6 ng/mL Normal 5.0-20.0 [facility] Comment on above: Result Comment: The [facility] [employer] [facility] Tacrolimus assay is a delayed one-step immunoassay for the quantitative determination of tacrolimus in human whole blood using the chemiluminescent microparticle immunoassay (CMIA) technology with flexible assay protocols, referred to as Chemiflex. Performed By: #### L [id number] #### [facility] [address] [place] [address] BASIC METABOLIC PANELon 04-11 Anion gap [Moles/Vol] 17 mmol/L Normal 7-20 [facility] Comment on above: Performed By: #### L [id number] ####[facility] ([facility])[address] [place] [address] Calcium [Mass/Vol] 8.6 mg/dL Normal 8.6-10.3 [facility] Comment on above: Performed By: #### L [id number] ####[facility] ([facility])[address] [place] [address] Chloride [Moles/Vol] 102 mmol/L Normal 98-107 [facility] Comment on above: Performed By: #### L [id number] ####[facility] ([facility])[address] [place] [address] CO2 [Moles/Vol] 20 mmol/L Low 21-31 [facility] Comment on above: Performed By: #### L [id number] ####[facility] ([facility])[address] [place] [address] Creatinine [Mass/Vol] 1.07 mg/dL Normal 0.70-1.30 [facility] Comment on above: Performed By: #### L [id number] ####[facility] (BEAKER)[address] [place] [address] GLOMERULAR FILTRATION RATE ML/MIN/1.73 SQ M.PREDICTED 74.2 mL/min/1.73m*2 Normal >60.0 [facility] Comment on above: Result Comment: [facility]???s estimated glomerular filtration rate (eGFR) will [...] of individuals. Performed By: #### L [id number] ####[facility] (BEAKER)[address] [place] [address] Glucose [Mass/Vol] 144 mg/dL High 70-100 [facility] Comment on above: Performed By: #### L [id number] ####[facility] ([facility])[address] [place] [address] Potassium [Moles/Vol] 4.7 mmol/L Normal 3.5-5.1 [facility] Comment on above: Performed By: #### L [id number] ####[facility] (BEAKER)[address] [place] [address] Sodium [Moles/Vol] 134 mmol/L Low 136-145 [facility] Comment on above: Performed By: #### L [id number] ####[facility] (GEORGE)[address] [place] [address] Urea nitrogen [Mass/Vol] 34 mg/dL High 7-25 [facility] Comment on above: Performed By: #### L [id number] ####[facility] (ISABEL)[address] [place] [address] UREA NITROGEN/CREATININE (MASS RATIO) IN SER/PLAS 31.8 Normal [facility] Comment on above: Performed By: #### L [id number] ####[facility] (GEORGE)[address] [place] [address] Anion gap [Moles/Vol] 17 mmol/L Normal 7-20 [facility] Comment on above: Performed By: #### L [id number] #### [facility] [address] [place] [address] Calcium [Mass/Vol] 8.7 mg/dL Normal 8.6-10.3 [facility] Comment on above: Performed By: #### L [id number] #### [facility] [address] [facility] [place] [address] Chloride [Moles/Vol] 100 mmol/L Normal 98-107 [facility] Comment on above: Performed By: #### L [id number] #### [facility] [address] [place] [address] CO2 [Moles/Vol] 19 mmol/L Low 21-31 [facility] Comment on above: Performed By: #### L [id number] #### [facility] [address] [place] [address] Creatinine [Mass/Vol] 1.20 mg/dL Normal 0.70-1.30 [facility] Comment on above: Performed By: #### L [id number] #### [facility] [address] [place] [address] GLOMERULAR FILTRATION RATE ML/MIN/1.73 SQ M.PREDICTED 64.7 mL/min/1.73m*2 Normal >60.0 [facility] Comment on above: Result Comment: [facility]???s estimated glomerular filtration rate (eGFR) will [...] group of individuals. Performed By: #### L [id number] #### [facility] [address] [place] [address] Glucose [Mass/Vol] 237 mg/dL High 70-100 [facility] Comment on above: Performed By: #### L [id number] #### [facility] [address] [place] [address] Potassium [Moles/Vol] 4.4 mmol/L Normal 3.5-5.1 [facility] Comment on above: Performed By: #### L [id number] #### [facility] [address] [place] [address] Sodium [Moles/Vol] 132 mmol/L Low 136-145 [facility] Comment on above: Performed By: #### L [id number] #### [facility] [address] [place] [address] Urea nitrogen [Mass/Vol] 40 mg/dL High 7-25 [facility] Comment on above: Performed By: #### L [id number] #### [facility] [address] [place] [address] UREA NITROGEN/CREATININE (MASS RATIO) IN SER/PLAS 33.3 Normal [facility] Comment on above: Performed By: #### L [id number] #### [facility] [address] [place] [address] Anion gap [Moles/Vol] 20 mmol/L Normal 7-20 [facility] Comment on above: Performed By: #### L [id number] #### [facility] ([facility]) [address] [place] [address] Calcium [Mass/Vol] 8.6 mg/dL Normal 8.6-10.3 [facility] Comment on above: Performed By: #### L [id number] #### [facility] ([facility]) [address] [place] [address] Chloride [Moles/Vol] 101 mmol/L Normal 98-107 [facility] Comment on above: Performed By: #### L [id number] #### [facility] ([facility]) [address] [place] [address] CO2 [Moles/Vol] 14 mmol/L Invalid Interpretation Code [facility] Comment on above: Performed By: #### L [id number] #### [facility] ([facility]) [address] [place] [address] Creatinine [Mass/Vol] 1.32 mg/dL High 0.70-1.30 [facility] Comment on above: Performed By: #### L [id number] #### [facility] ([facility]) [address] [place] [address] GLOMERULAR FILTRATION RATE ML/MIN/1.73 SQ M.PREDICTED 57.7 mL/min/1.73m*2 Low >60.0 [facility] Comment on above: Result Comment: [facility]???s estimated glomerular filtration rate (eGFR) will [...] individuals. Performed By: #### L [id number] #### [facility] [address] [place] [address] Glucose [Mass/Vol] 332 mg/dL High 70-100 [facility] Comment on above: Performed By: #### L [id number] #### [facility] (BEAKER) [address] [place] [address] Potassium [Moles/Vol] 4.6 mmol/L Normal 3.5-5.1 [facility] Comment on above: Performed By: #### L [id number] #### [facility] ([facility]) [address] [place] [address] Sodium [Moles/Vol] 130 mmol/L Low 136-145 [facility] Comment on above: Performed By: #### L [id number] #### [facility] [address] [place] [address] Urea nitrogen [Mass/Vol] 43 mg/dL High 7-25 [facility] Comment on above: Performed By: #### L [id number] #### [facility] ([facility]) [address] [place] [address] UREA NITROGEN/CREATININE (MASS RATIO) IN SER/PLAS 32.6 Normal [facility] Comment on above: Performed By: #### L [id number] #### [facility] [address] [place] [address] Anion gap [Moles/Vol] 22 mmol/L High 7-20 [facility] Comment on above: Performed By: #### L [id number] #### [facility] [address] [place] [address] Calcium [Mass/Vol] 8.9 mg/dL Normal 8.6-10.3 [facility] Comment on above: Performed By: #### L [id number] #### [facility] ([facility]ER) [address] [place] [address] Chloride [Moles/Vol] 99 mmol/L Normal 98-107 [facility] Comment on above: Performed By: #### L [id number] #### [facility] [address] [place] [address] CO2 [Moles/Vol] 13 mmol/L Invalid Interpretation Code 21 [facility] Comment on above: Performed By: #### L [id number] #### [facility] ([facility]) [address] [place] [address] Creatinine [Mass/Vol] 1.33 mg/dL High 0.70-1.30 [facility] Comment on above: Performed By: #### L [id number] #### [facility] ([facility]) [address] [place] [address] GLOMERULAR FILTRATION RATE ML/MIN/1.73 SQ M.PREDICTED 57.1 mL/min/1.73m*2 Low >60.0 [facility] Comment on above: Result Comment: [facility]???s estimated glomerular filtration rate (eGFR) will [...] individuals. Performed By: #### L [id number] #### [facility] ([facility]) [address] [place] [address] Glucose [Mass/Vol] 324 mg/dL High 70-100 [facility] Comment on above: Performed By: #### L [id number] #### [facility] ([facility]) [address] [place] [address] Potassium [Moles/Vol] 5.7 mmol/L High 3.5-5.1 [facility] Comment on above: Performed By: #### L [id number] #### [facility] [address] [place] [address] Sodium [Moles/Vol] 128 mmol/L Low 136-145 [facility] Comment on above: Performed By: #### L [id number] #### [facility] [address] [place] [address] Urea nitrogen [Mass/Vol] 45 mg/dL High 7-25 [facility] Comment on above: Performed By: #### L [id number] #### [facility] ([facility]) [address] [place] [address] UREA NITROGEN/CREATININE (MASS RATIO) IN SER/PLAS 33.8 Normal [facility] Comment on above: Performed By: #### L [id number] #### [facility] ([facility]) [address] [place] [address] Anion gap [Moles/Vol] 23 mmol/L High 7-20 [facility] Comment on above: Performed By: #### L [id number] #### [facility] ([facility]) [address] [place] [address] Calcium [Mass/Vol] 8.8 mg/dL Normal 8.6-10.3 [facility] Comment on above: Performed By: #### L [id number] #### [facility] ([facility]) [address] [place] [address] Chloride [Moles/Vol] 99 mmol/L Normal 98-107 [facility] Comment on above: Performed By: #### L [id number] #### [facility] [address] [place] [address] CO2 [Moles/Vol] 13 mmol/L Invalid Interpretation Code 21- [facility] Comment on above: Performed By: #### L [id number] #### [facility] (BEAKER) [address] [place] [address] Creatinine [Mass/Vol] 1.31 mg/dL High 0.70-1.30 [facility] Comment on above: Performed By: #### L [id number] #### [facility] (BEAKER) [address] [place] [address] GLOMERULAR FILTRATION RATE ML/MIN/1.73 SQ M.PREDICTED 58.2 mL/min/1.73m*2 Low >60.0 [facility] Comment on above: Result Comment: [facility]???s estimated glomerular filtration rate (eGFR) will [...] individuals. Performed By: #### L [id number] #### [facility] ([facility]) [address] [place] [address] Glucose [Mass/Vol] 264 mg/dL High 70-100 [facility] Comment on above: Performed By: #### L [id number] #### [facility] ([facility]) [address] [place] [address] Potassium [Moles/Vol] 5.7 mmol/L High 3.5-5.1 [facility] Comment on above: Performed By: #### L [id number] #### [facility] ([facility]) [address] [place] [address] Sodium [Moles/Vol] 129 mmol/L Low 136-145 [facility] Comment on above: Performed By: #### L [id number] #### [facility] [address] [place] [address] Urea nitrogen [Mass/Vol] 44 mg/dL High 7-25 [facility] Comment on above: Performed By: #### L [id number] #### [facility] ([facility]) [address] [place] [address] UREA NITROGEN/CREATININE (MASS RATIO) IN SER/PLAS 33.6 Normal [facility] Comment on above: Performed By: #### L [id number] #### [facility] (BEAKER) [address] [place] [address] BETA HYDROXYBUTYRATEon 04-28 BETA HYDROXYBUTYRATE (MMOL/L) IN SER/PLAS 6.22 mmol/L High 0.02-0.27 [facility] Comment on above: Performed By: #### L [id number] #### [facility] [address] [place] [address] BLOOD CULTUREon 04-28-2023 Bacteria identified Cx Nom (Bld) No growth at 5 days Normal [facility] Comment on above: Performed By: #### L [id number] #### [facility] [address] [place] [address] Bacteria identified Cx Nom (Bld) No growth at 5 days Normal [facility] Comment on above: Order Comment: From a different site than #1. Performed By: #### L [id number] #### [facility] [address] [place] [address] CMV DNA, QUALITATIVE, PCRon 04-28-2023 CYTOMEGALOVIRUS QUAL. PCR Not detected Normal [facility] Comment on above: Result Comment: NOT DETECTED - A negative result does not rule out the presence of PCR inhibitors in the patient specimen or assay specific nucleic acid in concentrations below the level of detection by the assay. INTERPRETIVE INFORMATION: Cytomegalovirus Detection by PCR This test was developed and its performance characteristics determined by [facility]. It has not been cleared or approved by the [place] Food and Drug Administration. This test was performed in a CLIA certified laboratory and is intended for clinical purposes. Performed By: [facility] [address] [place] [address] [employer] Teacher: René Wick MD, PhD CLIA Number: [id number] Performed By: #### L [id number] ####[facility] ([facility])[address] [place] [address] CYTOMEGALOVIRUS SOURCE Blood Normal [facility] Comment on above: Performed By: #### L [id number] ####[facility] ([facility])[address] [place] [address] CONSULTon 04-28-2023 CONSULT - Attestation signed by Ananda Pan MD at 04/28/2023 8:22 PM (Updated) I personally saw and examined the patient on the same date of service as resident/fellow . I discussed the findings and therapeutic plan with the resident/fellow . I agree with the documentation, except for any edits/updates below. Teaching Physician's Revisions: Patient is status post donor renal transplant in 2019 who presented with diabetic ketoacidosis along with [...] as a transfer from outside hospital in [place] for concerns of possible DKA, hyponatremia, and [...] nursing note reviewed. Exam conducted with a education coordinator present (Dr. Pan). Constitutional: General: He is [...] No ed (more content not included)... Normal [facility] HEMOGLOBIN A1Con 04-28-2023 Glucose [Mass/Vol] 372 mg/dL Normal [facility] Comment on above: Order Comment: NO VA RIANT Performed By: #### L [id number] ####[facility] (BEAKER)[address] [place] [address] HbA1c (Bld) [Mass fraction] 14.6 % High 4.0-6.0 [facility] Comment on above: Order Comment: NO VA RIANT Performed By: #### L [id number] ####[facility] (BEAKER)[address] [place] [address] NURSNOTEon 04-28-[address] Nguyen ( nephrology) regarding placing powerglide if pt a candidate, ok with placement on right arm. Normal [facility] OSMOLALITYon 04-28-2023 OSMOLALITY MEASURED 310 mOsm/kg High 275-295 [facility] Comment on above: Result Comment: Test Performed by [employer] [facility] [address] [place] [address] - Released 04/28/2023 22:42 Performed By: #### L [id number] #### [facility] [address] [place] [address] OSMOLALITY, URINEon 04-28-20 23 OSMOLALITY, URINE 446 mOsm/kg Normal 80-1300 [facility] Comment on above: Result Comment: Test Performed by [employer] [address] [place] [address] - Released 04/29/2023 03:35 Performed By: #### L [id number] #### [facility] (BEAKER) [address] [place] [address] POCT GLUCOSE METER UNSOLICIT ED RESULTSon 04-28-2023 Glucose [Mass/Vol] 141 mg/dL High 70-105 [facility] Comment on above: Order Comment: Waive d Testing in the ED is performed under the ED CLIA certificate #[id number]. Result Comment: ladarius benoit Performed By: #### L [id number] ####[facility] (BEAKER)[address] [place] [address] Glucose [Mass/Vol] 99 mg/dL Normal 70-105 [facility] Comment on above: Order Comment: Waive d Testing in the ED is performed under the ED CLIA certificate #[id number]. Result Comment: besc obe Performed By: #### L [id number] #### [facility] (BEAKER) [address] [place] [address] Glucose [Mass/Vol] 115 mg/dL High 70-105 [facility] Comment on above: Order Comment: Waive d Testing in the ED is performed under the ED CLIA certificate #[id number]. Result Comment: besc obe Performed By: #### L [id number] #### [facility] ([facility]ER) [address] [place] [address] Glucose [Mass/Vol] 145 mg/dL High 70-105 [facility] Comment on above: Order Comment: Waive d Testing in the ED is performed under the ED CLIA certificate #[id number]. Result Comment: wwar rad Performed By: #### L [id number] #### [facility] (BEAKER) [address] [place] [address] Glucose [Mass/Vol] 165 mg/dL High 70-105 [facility] Comment on above: Order Comment: Waive d Testing in the ED is performed under the ED CLIA certificate #[id number]. Result Comment: besc obe Performed By: #### L [id number] #### [facility] [address] [place] [address] Glucose [Mass/Vol] 203 mg/dL High 70-105 [facility] Comment on above: Order Comment: Waive d Testing in the ED is performed under the ED CLIA certificate #[id number]. Result Comment: [email or web address] Performed By: #### L [id number] #### [facility] [address] [place] [address] Glucose [Mass/Vol] 247 mg/dL High 70-105 [facility] Comment on above: Order Comment: Waive d Testing in the ED is performed under the ED CLIA certificate #[id number]. Result Comment: wwar rad Performed By: #### L [id number] #### [facility] (AKER) [address] [place] [address] Glucose [Mass/Vol] 315 mg/dL High 70-105 [facility] Comment on above: Order Comment: Waive d Testing in the ED is performed under the ED CLIA certificate #[id number]. Result Comment: wwar rad Performed By: #### L [id number] #### [facility] ([facility]) [address] [facility] [place] [address] Glucose [Mass/Vol] 356 mg/dL High 70-105 [facility] Comment on above: Order Comment: Waive d Testing in the ED is performed under the ED CLIA certificate #[id number]. Result Comment: [email or web address] [email or web address] Performed By: #### L [id number] #### [facility] ([facility]) [address] [facility] [place] [address] Glucose [Mass/Vol] 312 mg/dL High 70-105 [facility] Comment on above: Order Comment: Waive d Testing in the ED is performed under the ED CLIA certificate #[id number]. Result Comment: wwar rad Performed By: #### L [id number] ####[facility] ([facility])[address] [facility] [place] [address] PTH, INTACTon 04-28-2023 PARATHYRIN INTACT (PG/ML) IN SER/PLAS 48 pg/mL Normal 12-88 [facility] Comment on above: Performed By: #### L [id number] #### [facility] [address] [place] [address] TACROLIMUS LEVELon Tacrolimus (Bld) [Mass/Vol] 11.6 ng/mL Normal 5.0-20.0 [facility] Comment on above: Result Comment: The [facility] Tacrolimus assay is a delayed one-step immunoassay for the quantitative determination of tacrolimus in human whole blood using the chemiluminescent microparticle immunoassay (CMIA) technology with flexible assay protocols, referred to as Chemiflex. Performed By: #### L [id number] #### [facility] ([facility]) [address] [facility] [place] [address] TROPONIN Ion 04-28-2023 Troponin I.cardiac [Mass/Vol] 0.02 ng/mL Normal 0.00-0.04 [facility] Comment on above: Performed By: #### L [id number] #### [facility] ([facility]) [address] [facility] [place] [address] Troponin I.cardiac [Mass/Vol] 0.02 ng/mL Normal 0.00-0.04 [facility] Comment on above: Performed By: #### L [id number] #### [facility] ([facility]) [address] [place] [address] APTTon 04-27-2023 ACTIVATED PARTIAL THROMBOPLASTIN TIME IN PPP BY COAGULATION ASSAY 26.1 Seconds Normal 25.0-35.0 [facility] Comment on above: Result Comment: Clin ical significance of the APTT is questionable in the presence of heparin. Performed By: #### L [id number] #### [facility] ([facility]) [address] [place] [address] B-TYPE NATRIURETIC PEPTIDEon 04-27-2023 Natriuretic peptide B (Bld) [Mass/Vol] 98 pg/mL Normal 0-100 [facility] Comment on above: Performed By: #### L [id number] ####[facility] ([facility])[address] [place] [address] BLOOD CULTUREon 04-27-2023 Bacteria identified Cx Nom (Bld) No growth at 5 days Normal [facility] Comment on above: Performed By: #### L [id number] ####[facility] ([facility])[address] [place] [address] Order Comment: From a different site than #1. Performed By: #### L [id number] #### [facility] [address] [place] [address] CBC WITH AUTO DIFFERENTIALon 04-27-2023 Basophils (Bld) [#/Vol] 0.04 10*3/uL Normal 0.00-0.20 [facility] Comment on above: Performed By: #### L [id number] ####[facility] ([facility])[address] [place] [address] Basophils/100 WBC (Bld) 0.4 % Normal 0.0-1.0 [facility] Comment on above: Performed By: #### L [id number] ####[facility] ([facility])[address] [place] [address] Eosinophils (Bld) [#/Vol] 0.09 10*3/uL Normal 0.00-0.50 [facility] Comment on above: Performed By: #### L [id number] ####[facility] (BEAKER)[address] [place] [address] Eosinophils/100 WBC (Bld) 1.0 % Normal 0.0-6.0 [facility] Comment on above: Performed By: #### L [id number] ####[facility] [place] [address] Erythrocyte distribution width (RBC) [Ratio] 13.1 % Normal 11.5-15.0 [facility] Comment on above: Performed By: #### L [id number] ####[facility] (BEAKER)[address] [place] [address] ERYTHROCYTE MEAN CORPUSCULAR HEMOGLOBIN CONCENTRATION (G/DL) BY AUTOMATED 33.9 g/dL Normal 32.0-35.0 [facility] Comment on above: Performed By: #### L [id number] ####[facility] (BEAKER)[address] [place] [address] Hematocrit (Bld) [Volume fraction] 32.7 % Low 39.0-55.0 [facility] Comment on above: Performed By: #### L [id number] ####[facility] (BEAKER)[address] [place] [address] Hemoglobin (Bld) [Mass/Vol] 11.1 g/dL Low 13.0-17.0 [facility] Comment on above: Performed By: #### L [id number] ####[facility] (BEAKER)[address] [place] [address] Immature granulocytes (Bld) [#/Vol] 0.15 10*3/uL Normal 0.00-0.20 [facility] Comment on above: Performed By: #### L [id number] ####[facility] (BEAKER)[address] [place] [address] Immature granulocytes/100 WBC (Bld) 1.6 % High 0.0-1.0 [facility] Comment on above: Performed By: #### L [id number] ####[facility] ([facility])[address] [place] [address] Lymphocytes (Bld) [#/Vol] 1.04 10*3/uL Low 1.20-4.00 [facility] Comment on above: Performed By: #### L [id number] ####[facility] ([facility])[address] [place] [address] Lymphocytes/100 WBC (Bld) 11.3 % Low 20.0-45.0 [facility] Comment on above: Performed By: #### L [id number] ####[facility] ([facility])[address] [place] [address] MCH (RBC) [Entitic mass] 29.3 pg Normal 27.0-33.0 [facility] Comment on above: Performed By: #### L [id number] ####[facility] ([facility])[address] [place] [address] MCV (RBC) [Entitic vol] 86.3 fL Normal 82.0-98.0 [facility] Comment on above: Performed By: #### L [id number] ####[facility] ([facility])[address] [place] [address] Monocytes (Bld) [#/Vol] 0.96 10*3/uL Normal 0.10-1.00 [facility] Comment on above: Performed By: #### L [id number] ####[facility] ([facility])[address] [place] [address] Monocytes/100 WBC (Bld) 10.5 % Normal 5.0-12.0 [facility] Comment on above: Performed By: #### L [id number] ####[facility] [place] [address] Neutrophils (Bld) [#/Vol] 6.90 10*3/uL Normal 1.60-7.60 [facility] Comment on above: Performed By: #### L [id number] ####[facility] ([facility])[address] [place] [address] Neutrophils/100 WBC (Bld) 75.2 % High 40.0-72.0 [facility] Comment on above: Performed By: #### L [id number] ####[facility] [place] [address] NRBC (PER 100 WBCS) BY AUTOMATED COUNT 0.0 % Normal 0 [facility] Comment on above: Performed By: #### L [id number] ####[facility] ([facility])[address] [place] [address] PLATELETS (10*3/UL) IN BLOOD AUTOMATED COUNT 301 10*3/uL Normal 150-400 [facility] Comment on above: Performed By: #### L [id number] ####[facility] ([facility])[address] [place] [address] RBC (Bld) [#/Vol] 3.79 10*6/uL Low 4.20-5.70 [facility] Comment on above: Performed By: #### L [id number] ####[facility] ([facility])[address] [place] [address] WBC (Bld) [#/Vol] 9.18 10*3/uL Normal 4.00-10.60 [facility] Comment on above: Performed By: #### L [id number] ####[facility] [place] [address] COMPREHENSIVE METABOLIC PANE Claudio 04-27-2023 Albumin [Mass/Vol] 3.8 g/dL Normal 3.5-5.7 [facility] Comment on above: Performed By: #### L [id number] #### [facility] ([facility]) [address] [place] [address] ALP [Catalytic activity/Vol] 100 U/L Normal 34-104 [facility] Comment on above: Performed By: #### L [id number] #### [facility] ([facility]) [address] [place] [address] ALT [Catalytic activity/Vol] 12 U/L Normal 7-52 [facility] Comment on above: Performed By: #### L [id number] #### [facility] ([facility]) [address] [place] [address] Anion gap [Moles/Vol] 15 mmol/L Normal 7-20 [facility] Comment on above: Performed By: #### L [id number] #### [facility] ([facility]) [address] [place] [address] Performed By: #### L [id number] #### [facility] ([facility]) [address] [place] [address] AST [Catalytic activity/Vol] 12 U/L Low 13-39 [facility] Comment on above: Performed By: #### L [id number] #### [facility] ([facility]) [address] [place] [address] Bilirubin [Mass/Vol] 0.4 mg/dL Normal 0.3-1.0 [facility] Comment on above: Performed By: #### L [id number] #### [facility] ([facility]) [address] [place] [address] Calcium [Mass/Vol] 8.6 mg/dL Normal 8.6-10.3 [facility] Comment on above: Performed By: #### L [id number] #### [facility] ([facility]) [address] [place] [address] Performed By: #### L [id number] #### [facility] ([facility]) [address] [place] [address] Chloride [Moles/Vol] 101 mmol/L Normal 98-107 [facility] Comment on above: Performed By: #### L [id number] #### [facility] ([facility]) [address] [place] [address] Performed By: #### L [id number] #### [facility] ([facility]) [address] [place] [address] CO2 [Moles/Vol] 18 mmol/L Low 21-31 [facility] Comment on above: Performed By: #### L [id number] #### [facility] ([facility]) [address] [place] [address] Performed By: #### L [id number] #### [facility] ([facility]) [address] [place] [address] Creatinine [Mass/Vol] 1.36 mg/dL High 0.70-1.30 [facility] Comment on above: Performed By: #### L [id number] #### [facility] ([facility]) [address] [place] [address] Performed By: #### L [id number] #### [facility] ([facility]) [address] [place] [address] GLOMERULAR FILTRATION RATE ML/MIN/1.73 SQ M.PREDICTED 55.6 mL/min/1.73m*2 Low >60.0 [facility] Comment on above: Result Comment: [facility]???s estimated glomerular filtration rate (eGFR) will [...] individuals. Performed By: #### L [id number] #### [facility] ([facility]) [address] [place] [address] Performed By: #### L [id number] #### [facility] ([facility]) [address] [place] [address] Glucose [Mass/Vol] 149 mg/dL High 70-100 [facility] Comment on above: Performed By: #### L [id number] #### [facility] ([facility]) [address] [place] [address] Performed By: #### L [id number] #### [facility] ([facility]) [address] [place] [address] Potassium [Moles/Vol] 4.8 mmol/L Normal 3.5-5.1 [facility] Comment on above: Performed By: #### L [id number] #### [facility] [address] [place] [address] Performed By: #### L [id number] #### [facility] ([facility]) [address] [place] [address] Protein [Mass/Vol] 6.0 g/dL Normal 6.0-8.3 [facility] Comment on above: Performed By: #### L [id number] #### [facility] ([facility]) [address] [place] [address] Sodium [Moles/Vol] 129 mmol/L Low 136-145 [facility] Comment on above: Performed By: #### L [id number] #### [facility] ([facility]) [address] [place] [address] Performed By: #### L [id number] #### [facility] ([facility]) [address] [place] [address] Urea nitrogen [Mass/Vol] 45 mg/dL High 7-25 [facility] Comment on above: Performed By: #### L [id number] #### [facility] [address] [place] [address] Performed By: #### L [id number] #### [facility] ([facility]) [address] [place] [address] UREA NITROGEN/CREATININE (MASS RATIO) IN SER/PLAS 33.1 Normal [facility] Comment on above: Performed By: #### L [id number] #### [facility] ([facility]) [address] [place] [address] Performed By: #### L [id number] #### [facility] ([facility]) [address] [place] [address] CREATININE, URINE, RANDOMon 04-27-2023 Creatinine (U) [Mass/Vol] 100.0 mg/dL Normal 26-299 [facility] Comment on above: Performed By: #### L [id number] ####[facility] ([facility])[address] [place] [address] LACTIC ACID WITH 4 HOUR REFL EXon 04-27-2023 LACTATE (MMOL/L) IN SER/PLAS 0.8 mmol/L Normal 0.5-2.2 [facility] Comment on above: Performed By: #### L [id number] ####[facility] ([facility])[address] [place] [address] MAGNESIUMon 04-27-2023 Magnesium [Mass/Vol] 1.7 mg/dL Low 1.9-2.7 [facility] Comment on above: Performed By: #### L [id number] #### [facility] ([facility]) [address] [place] [address] PHOSPHORUSon 04-27-2023 Magnesium [Mass/Vol] 3.7 mg/dL Normal 2.5-5.0 [facility] Comment on above: Performed By: #### L [id number] #### [facility] ([facility]) [address] [place] [address] POCT GLUCOSE METER UNSOLICIT ED RESULTSon 04-27-2023 Glucose [Mass/Vol] 139 mg/dL High 70-105 [facility] Comment on above: Order Comment: Waive d Testing in the ED is performed under the ED CLIA certificate #[id number]. Result Comment: acle jordin Performed By: #### L [id number] #### [facility] ([facility]) [address] [place] [address] PROTEIN, URINE, RANDOMon Protein (U) [Mass/Vol] 47.2 mg/dL Normal [facility] Comment on above: Result Comment: Ther e are no established reference values for random urine specimens. Performed By: #### L [id number] #### [facility] ([facility] [address] [place] [address] PROTIME-INRon 04-27-2023 INR IN PPP BY COAGULATION ASSAY 1.13 High 0.90-1.10 [facility] Comment on above: Result Comment: ACCC [...] RANGE. CHEST 1995;108:[id number]. Performed By: #### L [id number] #### [facility] ([facility] [address] [place] [address] PROTHROMBIN TIME (PT) IN PPP BY COAGULATION ASSAY 14.5 Seconds Normal 12.3-14.8 [facility] Comment on above: Performed By: #### L [id number] #### [facility] ([facility]) [address] [place] [address] SODIUM, URINE, RANDOMon 04-11 Sodium (U) [Moles/Vol] 35 mmol/L Normal [facility] Comment on above: Performed By: #### L [id number] ####[facility] ([facility])[address] [place] [address] TROPONIN Ion 04-27-2023 Troponin I.cardiac [Mass/Vol] 0.04 ng/mL Normal 0.00-0.04 [facility] Comment on above: Performed By: #### L [id number] #### [facility] ([facility] [address] [place] [address] URINALYSIS MICROSCOPIC WITH REFLEX CULTUREon 04-27-2023 CASTS IN URINE Normal [facility] Comment on above: Performed By: #### L [id number] #### [facility] ([facility] [address] [place] [address] CRYSTALS IN URINE Normal [facility] Comment on above: Performed By: #### L [id number] #### [facility] ([facility]) [address] [place] [address] OTHER MICROSCOPIC ELEMENTS Normal [facility] Comment on above: Performed By: #### L [id number] #### [facility] ([facility]) [address] [place] [address] RBC (#/HPF) IN URINE SEDIMENT 21-50 Abnormal None Seen [facility] Comment on above: Performed By: #### L [id number] #### [facility] [address] [place] [address] SQUAMOUS EPITHELIAL CELLS (#/HPF) IN URINE SEDIMENT Occasional Normal None Seen, Occasional [facility] Comment on above: Performed By: #### L [id number] #### [facility] [address] [place] [address] WBC (LEUKOCYTE) (#/HPF) IN URINE SEDIMENT 6-10 Abnormal None Seen [facility] Comment on above: Performed By: #### L [id number] #### [facility] [address] [place] [address] URINALYSIS WITH REFLEX CULTU REon 04-27-2023 BILIRUBIN, TOTAL PRESENCE IN URINE Negative Normal Negative [facility] Comment on above: Performed By: #### L [id number] ####[facility] ([facility])[address] [place] [address] Clarity (U) Clear Normal Clear [facility] Comment on above: Performed By: #### L [id number] ####[facility] ([facility])[address] [place] [address] Color (U) Yellow Normal Yellow [facility] Comment on above: Performed By: #### L [id number] ####[facility] ([facility])[address] [place] [address] Glucose (U) [Mass/Vol] Negative Normal Negative [facility] Comment on above: Performed By: #### L [id number] ####[facility] ([facility])[address] [place] [address] HEMOGLOBIN PRESENCE IN URINE Moderate Abnormal Negative [facility] Comment on above: Performed By: #### L [id number] ####[facility] ([facility])[address] [place] [address] Ketones Ql (U) 20 mg/dL Abnormal Negative [facility] Comment on above: Performed By: #### L [id number] ####[facility] ([facility])[address] [place] [address] LEUKOCYTE ESTERASE PRESENCE IN URINE BY TEST STRIP Trace Abnormal Negative [facility] Comment on above: Performed By: #### L [id number] ####[facility] ([facility])[address] [place] [address] NITRITE PRESENCE IN URINE Negative Normal Negative [facility] Comment on above: Performed By: #### L [id number] ####[facility] ([facility])[address] [place] [address] pH (U) 5.0 [pH] Normal 5.0-8.0 [facility] Comment on above: Performed By: #### L [id number] ####[facility] ([facility])[address] [place] [address] Protein (U) [Mass/Vol] 30 mg/dL Abnormal Negative [facility] Comment on above: Performed By: #### L [id number] ####[facility] ([facility])[address] [place] [address] Specific gravity (U) [Rel density] 1.015 Normal 1.015-1.020 [facility] Comment on above: Performed By: #### L [id number] ####[facility] ([facility])[address] [place] [address] Office Visiton 04-22-2023 Follow-up visit [id number] Roger Suarez 1950 M Date Provider Department Center 04/22/2023 BENJA FIGUEROA [facility] Family History Problem Relation Age of Onset Diabetes Mother Hypertension Mother Coronary artery disease Mother Other Mother Cystic kidney disease Mother Hypertension Father Skin cancer Father Cystic kidney disease Father Cystic kidney disease Sister Heart disease Brother ALS Brother Cystic kidney disease Brother Family Status - Relation Status Age at Mother Father Sister Brother Level of Service:25746 [place] OFFICE/OUTPATIENT ESTABLISHED LOW MDM 20-29 MIN Normal [facility] Documentationon 04-07-2023 Documentation [id number] Roger Suarez 1950 M Date Provider Department [...] Age at Mother Father Sister Brother Normal [facility] Orders Onlyon 04-02-2023 Orders Only [id number] Roger Suarez 1950 M Date Provider Department [...] Age at Mother Father Sister Brother Normal [facility] FK506 (TACROLIMUS) WHOLE BLO ODon 10-06-2022 Tacrolimus (FK506), Blood 3.8 ng/mL Normal 2.0-20.0 [facility] Comment on above: Result Comment: Trou gh (immediately following transplant) 15.0 . Trough (steady state, 2 weeks or more after transplant): 3.0 - 8.0 . Performed by LC-MS/MS technology. Performed By: #### U CLINT, CMP, LIPID, DBIL, PHOS, MG #### [facility] [address] [place] [address] Dr. Brea Causey BILIRUBIN CONJUGATED (DIRECT )on 10-03-2022 BILI, CONJUGATED 0.1 mg/dL Normal 0.0-0.2 [facility] Comment on above: Performed By: #### C BC #### [facility] [address] [place] [address] Dr. Brea Causey CBC AUTO DIFFon 10-03-2022 BASO # 0.0 103/ul Normal 0.0-0.1 [facility] Comment on above: Performed By: #### U CLINT, CMP, LIPID, DBIL, PHOS, MG #### [facility] [address] [place] [address] Dr. Brea Causey Basophils/100 WBC (Bld) 0.5 % Normal 0.2-2.0 [facility] Comment on above: Performed By: #### U CLINT, CMP, LIPID, DBIL, PHOS, MG #### [facility] [address] [place] [address] Dr. Brea Causey EO # 0.1 103/ul Normal 0.0-0.7 [facility] Comment on above: Performed By: #### U CLINT, CMP, LIPID, DBIL, PHOS, MG #### [facility] [address] [place] [address] Dr. Brea Causey Eosinophils/100 WBC (Bld) 2.3 % Normal 0.9-7.0 [facility] Comment on above: Performed By: #### U CLINT, CMP, LIPID, DBIL, PHOS, MG #### [facility] [address] [place] [address] Dr. Brea Causey Erythrocyte distribution width (RBC) [Ratio] 13.2 % Normal 11.0-15.0 [facility] Comment on above: Performed By: #### U CLINT, CMP, LIPID, DBIL, PHOS, MG #### [facility] [address] [place] [address] Dr. Brea Causey Hematocrit (Bld) [Volume fraction] 35.0 % Critically low 42.0-54.0 [facility] Comment on above: Performed By: #### U CLINT, CMP, LIPID, DBIL, PHOS, MG #### [facility] [address] [address] [address] Brea Causey Hemoglobin (Bld) [Mass/Vol] 11.7 g/dL Critically low 14.0-18.0 [facility] Comment on above: Performed By: #### U CLINT, CMP, LIPID, DBIL, PHOS, MG #### [facility] [address] [address] [address] Brea Causey IG # 0.06 10e3/ul Critically high 0.00-0.[address] [facility] Comment on above: Performed By: #### U CLINT, CMP, LIPID, DBIL, PHOS, MG #### [facility] [address] [address] [address] Brea Causey IG % 1.1 % Critically high 0.0-0.5 [facility] Comment on above: Performed By: #### U CLINT, CMP, LIPID, DBIL, PHOS, MG #### [facility] [address] [address] [address] Brea Causey LYMPH # 0.8 103/ul Critically low 1.2-3.8 [facility] Comment on above: Performed By: #### U CLINT, CMP, LIPID, DBIL, PHOS, MG #### [facility] [address] [address] [address] Brea Causey Lymphocytes/100 WBC (Bld) 14.9 % Critically low 20.5-60.0 [facility] Comment on above: Performed By: #### U CLINT, CMP, LIPID, DBIL, PHOS, MG #### [facility] [address] [place] [address] Dr. Brea Causey MANUAL DIFF REQ NO Normal [facility] Comment on above: Performed By: #### U CLINT, CMP, LIPID, DBIL, PHOS, MG #### [facility] [address] [place] [address] Dr. Brea Causey MCH (RBC) [Entitic mass] 28.8 pg Normal 25.9-34.0 [facility] Comment on above: Performed By: #### U CLINT, CMP, LIPID, DBIL, PHOS, MG #### [facility] [address] [place] [address] Dr. Brea Causey MCHC (RBC) [Mass/Vol] 33.4 g/dL Normal 29.9-35.2 [facility] Comment on above: Performed By: #### U CLINT, CMP, LIPID, DBIL, PHOS, MG #### [facility] [address] [place] [address] Dr. Brea Causey MCV (RBC) [Entitic vol] 86.2 fL Normal 80.0-94.0 [facility] Comment on above: Performed By: #### U CLINT, CMP, LIPID, DBIL, PHOS, MG #### [facility] [address] [place] [address] Dr. Brea Causey MONO # 0.5 103/ul Normal 0.3-0.8 [facility] Comment on above: Performed By: #### U CLINT, CMP, LIPID, DBIL, PHOS, MG #### [facility] [address] [place] [address] Dr. Brea Causey Monocytes/100 WBC (Bld) 9.1 % Normal 1.7-12.0 [facility] Comment on above: Performed By: #### U CLINT, CMP, LIPID, DBIL, PHOS, MG #### [facility] [address] [place] [address] Dr. Brea Causey NEUT # 4.1 103/ul Normal 1.4-6.5 [facility] Comment on above: Performed By: #### U CLINT, CMP, LIPID, DBIL, PHOS, MG #### [facility] [address] [place] [address] Dr. Brea Causey Neutrophils/100 WBC (Bld) 72.1 % Normal 43.0-75.0 [facility] Comment on above: Performed By: #### U CLINT, CMP, LIPID, DBIL, PHOS, MG #### [facility] [address] [address] [address] Brea Causey Platelet mean volume (Bld) [Entitic vol] 9.0 fL Critically low 9.5-13.5 [facility] Comment on above: Performed By: #### U CLINT, CMP, LIPID, DBIL, PHOS, MG #### [facility] [address] [address] [address] Brea Causey PLT 211 103/ul Normal 150-450 [facility] Comment on above: Performed By: #### U CLINT, CMP, LIPID, DBIL, PHOS, MG #### [facility] [address] [address] [address] Brea Causey RBC 4.06 106/ul Critically low 4.70-6.10 [facility] Comment on above: Performed By: #### U CLINT, CMP, LIPID, DBIL, PHOS, MG #### [facility] [address] [place] [address] Dr. Brea Causey WBC 5.6 103/ul Normal 4.0-11.0 [facility] Comment on above: Performed By: #### U CLINT, CMP, LIPID, DBIL, PHOS, MG #### [facility] [address] [place] [address] Dr. Brea Causey LIPID PROFILEon 10-03-2022 CHOL-HDL RATIO NORM SEE BELOW Normal [facility] Comment on above: Result Comment: 3.3 - 4.4 LOW RISK 4.4 - 7.1 AVERAGE RISK 7.1 - 11.0 MODERATE RISK >11.0 HIGH RISK Performed By: #### C BC #### [facility] [address] [place] [address] Dr. Brea Causey Cholesterol [Mass/Vol] 93 mg/dL Normal <=200 [facility] Comment on above: Performed By: #### C BC #### [facility] [address] [place] [address] Dr. Brea Causey Cholesterol in HDL [Mass/Vol] 43 mg/dL Normal 40-60 [facility] Comment on above: Performed By: #### C BC #### [facility] [address] [place] [address] [address] Brea Causey Cholesterol in LDL [Mass/Vol] 37.6 mg/dL Normal [facility] Comment on above: Performed By: #### C BC #### [facility] [address] [place] [address] [address] Brea Causey Cholesterol.total/Cho lesterol in HDL [Mass ratio] 2.2 {ratio} Normal [facility] Comment on above: Performed By: #### C BC #### [facility] [address] [place] [address] [address] Brea Causey HDL NORMAL > or = 60 mg/dl - LO W CARDIOVASCULAR RISK <40 mg/dl - HIGH CARDIOVASCULAR RISK Normal [facility] Comment on above: Performed By: #### C BC #### [facility] [address] [place] [address] Dr. Brea Causey LDL CALC NORMAL SEE BELOW Normal [facility] Comment on above: Result Comment: <100 mg/dl OPTIMAL 100 - 129 mg/dl NEAR OR ABOVE OPTIMAL 130 - 159 mg/dl BORDERLINE HIGH 160 - 189 mg/dl HIGH >190 mg/dl VERY HIGH Performed By: #### C BC #### [facility] [address] [place] [address] Dr. Brea Causey Triglyceride [Mass/Vol] 62 mg/dL Normal <=150 [facility] Comment on above: Performed By: #### C BC #### [facility] [address] [address] [address] Brea Causey VLDL CALC 12.4 mg/dL Normal [facility] Comment on above: Performed By: #### C BC #### [facility] [address] [place] [address] [address] Brea Causey MAGNESIUMon 10-03-2022 Magnesium [Mass/Vol] 1.5 mg/dL Critically low 1.8-2.4 [facility] Comment on above: Performed By: #### C BC #### [facility] [address] [address] [address] Brea Causey PHOSPHORUSon 10-03-2022 Phosphate [Mass/Vol] 4.4 mg/dL Normal 2.6-4.7 [facility] Comment on above: Performed By: #### C BC #### [facility] [address] [place] [address] Dr. Brea Causey PROF 14(COMP METB)on 023 Albumin [Mass/Vol] 3.8 g/dL Normal 3.4-5.0 [facility] Comment on above: Performed By: #### C BC #### [facility] [address] [place] [address] Dr. Brea Causey Albumin/Globulin [Mass ratio] 1.1 {ratio} Normal [facility] Comment on above: Performed By: #### C BC #### [facility] [address] [place] [address] Dr. Brea Causey ALP [Catalytic activity/Vol] 190 U/L Critically high 46-116 [facility] Comment on above: Performed By: #### C BC #### [facility] [address] [place] [address] Dr. Brea Causey ALT [Catalytic activity/Vol] 26 U/L Normal 16-63 [facility] Comment on above: Performed By: #### C BC #### [facility] [address] [place] [address] Dr. Brea Causey Anion gap [Moles/Vol] 15.3 mmol/L Normal [facility] Comment on above: Performed By: #### C BC #### [facility] [address] [place] [address] Dr. Brea Causey AST [Catalytic activity/Vol] 23 U/L Normal 15-37 [facility] Comment on above: Performed By: #### C BC #### [facility] [address] [place] [address] Dr. Brea Causey Bilirubin [Mass/Vol] 0.4 mg/dL Normal 0.2-1.0 [facility] Comment on above: Performed By: #### C BC #### [facility] [address] [place] [address] Dr. Brea Causey Calcium [Mass/Vol] 7.8 mg/dL Critically low 8.5-10.1 [facility] Comment on above: Performed By: #### C BC #### [facility] [address] [place] [address] Dr. Brea Causey Chloride [Moles/Vol] 97 mmol/L Critically low 98-107 [facility] Comment on above: Performed By: #### C BC #### [facility] [address] [place] [address] Dr. Brea Causey CO2 [Moles/Vol] 25.6 mmol/L Normal 21.0-32.0 [facility] Comment on above: Performed By: #### C BC #### [facility] [address] [place] [address] Dr. Brea Causey Creatinine [Mass/Vol] 1.03 mg/dL Normal 0.70-1.30 [facility] Comment on above: Performed By: #### C BC #### [facility] [address] [place] [address] Dr. Brea Causey EGFR-AF MALTESE >60 Normal >=60 [facility] Comment on above: Performed By: #### C BC #### [facility] [address] [place] [address] Dr. Brea Causey EGFR-NON AF MALTESE >60 Normal >=60 [facility] Comment on above: Performed By: #### C BC #### [facility] [address] [place] [address] Dr. Brea Causey Globulin (S) [Mass/Vol] 3.6 g/dL Normal [facility] Comment on above: Performed By: #### C BC #### [facility] [address] [place] [address] Dr. Brea Causey Glucose [Mass/Vol] 188 mg/dL Critically high 74-106 [facility] Comment on above: Performed By: #### C BC #### [facility] [address] [place] [address] Dr. Brea Causey Potassium [Moles/Vol] 4.9 mmol/L Normal 3.5-5.1 [facility] Comment on above: Performed By: #### C BC #### [facility] [address] [address] [address] Brea Causey Protein [Mass/Vol] 7.4 g/dL Normal 6.4-8.2 [facility] Comment on above: Performed By: #### C BC #### [facility] [address] [address] [address] Brea Causey Sodium [Moles/Vol] 133 mmol/L Critically low 136-145 [facility] Comment on above: Performed By: #### C BC #### [facility] [address] [place] [address] Dr. Brea Causey Urea nitrogen [Mass/Vol] 11.0 mg/dL Normal 7.0-18.0 [facility] Comment on above: Performed By: #### C BC #### [facility] [address] [place] [address] Dr. Brea Causey Urea nitrogen/Creatinine [Mass ratio] 10.7 mg/mg Normal [facility] Comment on above: Performed By: #### C BC #### [facility] [address] [place] [address] Dr. Brea Causey URIC ACID SERUMon 10-03-2022 Urate [Mass/Vol] 5.7 mg/dL Normal 3.5-7.2 [facility] Comment on above: Performed By: #### C BC #### [facility] [address] [place] [address] Dr. Brea Causey BK VIRUS PCR QUANTon 023 BKV DNA QUANT PCR PLASMA Negative Normal Negative [facility] Comment on above: Result Comment: No B K DNA detected. . The linear range of the assay is 22 - 100,000,000 IU/mL. Performed By: #### U CLINT, CMP, LIPID, DBIL, PHOS, MG #### [facility] [address] [place] [address] Dr. Brea Causey Log10 BKV DNA Plasma Normal [facility] Comment on above: Performed By: #### U CLINT, CMP, LIPID, DBIL, PHOS, MG #### [facility] [address] [place] [address] Dr. Brea Causey FK506 (TACROLIMUS) WHOLE BLO ODon 09-02-2022 Tacrolimus (FK506), Blood 3.8 ng/mL Normal 2.0-20.0 [facility] Comment on above: Result Comment: Trou gh (immediately following transplant) 15.0 . Trough (steady state, 2 weeks or more after transplant): 3.0 - 8.0 . Performed by LC-MS/MS technology. Performed By: #### U CLINT, CMP, LIPID, DBIL, PHOS, MG #### [facility] [address] [place] [address] Dr. Brea Causey TESTOSTERONE, FREE,DIRECT, T OTALon 09-01-2022 Free Testosterone(Direct) 9.7 pg/mL Normal 6.6-18.1 [facility] Comment on above: Result Comment: Perf ormed at: BN Performed By: #### U CLINT, CMP, LIPID, DBIL, PHOS, MG #### [facility] [address] [place] [address] Dr. Brea Causey Testosterone [Mass/Vol] 565 ng/dL Normal 264-916 [facility] Comment on above: Result Comment: Adul t male reference interval is based on a population of healthy nonobese males (BMI <30) between 19 and 39 years old. Steven et.al. JCEM 2017,102;9352-3793. PMID: [id number]. Performed at: CB Performed By: #### U CLINT, CMP, LIPID, DBIL, PHOS, MG #### [facility] [address] [place] [address] Dr. Brea Causey BILIRUBIN CONJUGATED (DIRECT )on 08-30-2022 BILI, CONJUGATED 0.1 mg/dL Normal 0.0-0.2 [facility] Comment on above: Performed By: #### U CLINT, CMP, LIPID, DBIL, PHOS, MG #### [facility] [address] [place] [address] Dr. Brea Causey CBC AUTO DIFFon 08-30-2022 BASO # 0.0 103/ul Normal 0.0-0.1 [facility] Comment on above: Performed By: #### U CLINT, CMP, LIPID, DBIL, PHOS, MG #### [facility] [address] [place] [address] Dr. Brea Causey Basophils/100 WBC (Bld) 0.7 % Normal 0.2-2.0 [facility] Comment on above: Performed By: #### U CLINT, CMP, LIPID, DBIL, PHOS, MG #### [facility] [address] [place] [address] Dr. Brea Causey EO # 0.2 103/ul Normal 0.0-0.7 [facility] Comment on above: Performed By: #### U CLINT, CMP, LIPID, DBIL, PHOS, MG #### [facility] [address] [place] [address] Dr. Brea Causey Eosinophils/100 WBC (Bld) 3.6 % Normal 0.9-7.0 [facility] Comment on above: Performed By: #### U CLINT, CMP, LIPID, DBIL, PHOS, MG #### [facility] [address] [place] [address] Dr. Brea Causey Erythrocyte distribution width (RBC) [Ratio] 13.2 % Normal 11.0-15.0 [facility] Comment on above: Performed By: #### U CLINT, CMP, LIPID, DBIL, PHOS, MG #### [facility] [address] [place] [address] Dr. Brea Causey Hematocrit (Bld) [Volume fraction] 36.0 % Critically low 42.0-54.0 [facility] Comment on above: Performed By: #### U CLINT, CMP, LIPID, DBIL, PHOS, MG #### [facility] [address] [place] [address] Dr. Brea Causey Hemoglobin (Bld) [Mass/Vol] 12.2 g/dL Critically low 14.0-18.0 [facility] Comment on above: Performed By: #### U CLINT, CMP, LIPID, DBIL, PHOS, MG #### [facility] [address] [address] [address] Brea Causey IG # 0.07 10e3/ul Critically high 0.00-0.[address] [facility] Comment on above: Performed By: #### U CLINT, CMP, LIPID, DBIL, PHOS, MG #### [facility] [address] [address] [address] Brea Causey IG % 1.2 % Critically high 0.0-0.[address] [facility] Comment on above: Performed By: #### U CLINT, CMP, LIPID, DBIL, PHOS, MG #### [facility] [address] [place] [address] Dr. Brea Causey LYMPH # 0.9 103/ul Critically low 1.2-3.8 [facility] Comment on above: Performed By: #### U CLINT, CMP, LIPID, DBIL, PHOS, MG #### [facility] [address] [place] [address] Dr. Brea Causey Lymphocytes/100 WBC (Bld) 15.0 % Critically low 20.5-60.0 [facility] Comment on above: Performed By: #### U CLINT, CMP, LIPID, DBIL, PHOS, MG #### [facility] [address] [place] [address] Dr. Brea Causey MANUAL DIFF REQ NO Normal [facility] Comment on above: Performed By: #### U CLINT, CMP, LIPID, DBIL, PHOS, MG #### [facility] [address] [place] [address] Dr. Brea Causey MCH (RBC) [Entitic mass] 29.4 pg Normal 25.9-34.0 [facility] Comment on above: Performed By: #### U CLINT, CMP, LIPID, DBIL, PHOS, MG #### [facility] [address] [place] [address] Dr. Brea Causey MCHC (RBC) [Mass/Vol] 33.9 g/dL Normal 29.9-35.2 [facility] Comment on above: Performed By: #### U CLINT, CMP, LIPID, DBIL, PHOS, MG #### [facility] [address] [place] [address] Dr. Brea Causey MCV (RBC) [Entitic vol] 86.7 fL Normal 80.0-94.0 [facility] Comment on above: Performed By: #### U CLINT, CMP, LIPID, DBIL, PHOS, MG #### [facility] [address] [place] [address] Dr. Brea Causey MONO # 0.5 103/ul Normal 0.3-0.8 [facility] Comment on above: Performed By: #### U CLINT, CMP, LIPID, DBIL, PHOS, MG #### [facility] [address] [place] [address] Dr. Brea Causey Monocytes/100 WBC (Bld) 9.0 % Normal 1.7-12.0 [facility] Comment on above: Performed By: #### U CLINT, CMP, LIPID, DBIL, PHOS, MG #### [facility] [address] [place] [address] Dr. Brea Causey NEUT # 4.2 103/ul Normal 1.4-6.5 [facility] Comment on above: Performed By: #### U CLINT, CMP, LIPID, DBIL, PHOS, MG #### [facility] [address] [place] [address] Dr. Brea Causey Neutrophils/100 WBC (Bld) 70.5 % Normal 43.0-75.0 [facility] Comment on above: Performed By: #### U CLINT, CMP, LIPID, DBIL, PHOS, MG #### [facility] [address] [place] [address] Dr. Brea Causey Platelet mean volume (Bld) [Entitic vol] 8.7 fL Critically low 9.5-13.5 [facility] Comment on above: Performed By: #### U CLINT, CMP, LIPID, DBIL, PHOS, MG #### [facility] [address] [place] [address] Dr. Brea Causey PLT 247 103/ul Normal 150-450 [facility] Comment on above: Performed By: #### U CLINT, CMP, LIPID, DBIL, PHOS, MG #### [facility] [address] [address] [address] Brea Causey RBC 4.15 106/ul Critically low 4.70-6.10 [facility] Comment on above: Performed By: #### U CLINT, CMP, LIPID, DBIL, PHOS, MG #### [facility] [address] [address] [address] Brea Causey WBC 5.9 103/ul Normal 4.0-11.0 [facility] Comment on above: Performed By: #### U CLINT, CMP, LIPID, DBIL, PHOS, MG #### [facility] [address] [address] [address] Brea Causey GLYCOHEMOGLOBIN A1Con 2022 ADA RECOMMENDATION SEE BELOW Normal [facility] Comment on above: Result Comment: ADA RECOMMENDED LIMIT 4.0 - 6.0 ADA THERAPEUTIC TARGET < 7.0 ACTION SUGGESTED > 7.0 Performed By: #### U CLINT, CMP, LIPID, DBIL, PHOS, MG #### [facility] [address] [address] [address] Brea Cauesy Glucose [Mass/Vol] 177 mg/dL Normal [facility] Comment on above: Performed By: #### U CLINT, CMP, LIPID, DBIL, PHOS, MG #### [facility] [address] [address] [address] Brea Causey HbA1c (Bld) [Mass fraction] 7.8 % Critically high 4.5-6.2 [facility] Comment on above: Performed By: #### U CLINT, CMP, LIPID, DBIL, PHOS, MG #### [facility] [address] [address] [address] Brea Causey LIPID PROFILEon 08-30-2022 CHOL-HDL RATIO NORM SEE BELOW Normal [facility] Comment on above: Result Comment: 3.3 - 4.4 LOW RISK 4.4 - 7.1 AVERAGE RISK 7.1 - 11.0 MODERATE RISK >11.0 HIGH RISK Performed By: #### U CLNIT, CMP, LIPID, DBIL, PHOS, MG #### [facility] [address] [address] [address] Brea Causey Cholesterol [Mass/Vol] 96 mg/dL Normal <=200 [facility] Comment on above: Performed By: #### U CLINT, CMP, LIPID, DBIL, PHOS, MG #### [facility] [address] [address] [address] Brea Causey Cholesterol in HDL [Mass/Vol] 48 mg/dL Normal 40-60 [facility] Comment on above: Performed By: #### U CLINT, CMP, LIPID, DBIL, PHOS, MG #### [facility] [address] [address] [address] Brea Causey Cholesterol in LDL [Mass/Vol] 40.2 mg/dL Normal [facility] Comment on above: Performed By: #### U CLINT, CMP, LIPID, DBIL, PHOS, MG #### [facility] [address] [address] [address] Brea Causey Cholesterol.total/Cho lesterol in HDL [Mass ratio] 2.0 {ratio} Normal [facility] Comment on above: Performed By: #### U CLINT, CMP, LIPID, DBIL, PHOS, MG #### [facility] [address] [address] [address] Brea Causey HDL NORMAL > or = 60 mg/dl - LO W CARDIOVASCULAR RISK <40 mg/dl - HIGH CARDIOVASCULAR RISK Normal [facility] Comment on above: Performed By: #### U CLINT, CMP, LIPID, DBIL, PHOS, MG #### [facility] [address] [address] [address] Brea Causey LDL CALC NORMAL SEE BELOW Normal [facility] Comment on above: Result Comment: <100 mg/dl OPTIMAL 100 - 129 mg/dl NEAR OR ABOVE OPTIMAL 130 - 159 mg/dl BORDERLINE HIGH 160 - 189 mg/dl HIGH >190 mg/dl VERY HIGH Performed By: #### U CLINT, CMP, LIPID, DBIL, PHOS, MG #### [facility] [address] [address] [address] Brea Causey Triglyceride [Mass/Vol] 39 mg/dL Normal <=150 [facility] Comment on above: Performed By: #### U CLINT, CMP, LIPID, DBIL, PHOS, MG #### [facility] [address] [address] [address] Brea Causey VLDL CALC 7.8 mg/dL Normal [facility] Comment on above: Performed By: #### U CLINT, CMP, LIPID, DBIL, PHOS, MG #### [facility] [address] [place] [address] Dr. Brea Causey MAGNESIUMon 08-30-2022 Magnesium [Mass/Vol] 1.5 mg/dL Critically low 1.8-2.4 [facility] Comment on above: Performed By: #### U CLINT, CMP, LIPID, DBIL, PHOS, MG #### [facility] [address] [place] [address] Dr. Brea Causey PHOSPHORUSon 08-30-2022 Phosphate [Mass/Vol] 4.0 mg/dL Normal 2.6-4.7 [facility] Comment on above: Performed By: #### U CLINT, CMP, LIPID, DBIL, PHOS, MG #### [facility] [address] [place] [address] Dr. Brea Causey PROF 14(COMP METB)on 023 Albumin [Mass/Vol] 3.8 g/dL Normal 3.4-5.0 [facility] Comment on above: Performed By: #### U LCINT, CMP, LIPID, DBIL, PHOS, MG #### [facility] [address] [place] [address] Dr. Brea Causey Albumin/Globulin [Mass ratio] 1.1 {ratio} Normal [facility] Comment on above: Performed By: #### U CLINT, CMP, LIPID, DBIL, PHOS, MG #### [facility] [address] [place] [address] Dr. Brea Causey ALP [Catalytic activity/Vol] 177 U/L Critically high 46-116 [facility] Comment on above: Performed By: #### U CLINT, CMP, LIPID, DBIL, PHOS, MG #### [facility] [address] [place] [address] Dr. Brea Causey ALT [Catalytic activity/Vol] 27 U/L Normal 16-63 [facility] Comment on above: Performed By: #### U CLINT, CMP, LIPID, DBIL, PHOS, MG #### [facility] [address] [place] [address] Dr. Brea Causey Anion gap [Moles/Vol] 12.1 mmol/L Normal [facility] Comment on above: Performed By: #### U CLINT, CMP, LIPID, DBIL, PHOS, MG #### [facility] [address] [place] [address] Dr. Brea Causey AST [Catalytic activity/Vol] 19 U/L Normal 15-37 [facility] Comment on above: Performed By: #### U CLINT, CMP, LIPID, DBIL, PHOS, MG #### [facility] [address] [place] [address] Dr. Brea Causey Bilirubin [Mass/Vol] 0.3 mg/dL Normal 0.2-1.0 [facility] Comment on above: Performed By: #### U CLINT, CMP, LIPID, DBIL, PHOS, MG #### [facility] [address] [place] [address] Dr. Brea Causey Calcium [Mass/Vol] 8.0 mg/dL Critically low 8.5-10.1 [facility] Comment on above: Performed By: #### U CLINT, CMP, LIPID, DBIL, PHOS, MG #### [facility] [address] [place] [address] Dr. Brea Causey Chloride [Moles/Vol] 96 mmol/L Critically low 98-107 [facility] Comment on above: Performed By: #### U CLINT, CMP, LIPID, DBIL, PHOS, MG #### [facility] [address] [place] [address] Dr. Brea Causey CO2 [Moles/Vol] 28.0 mmol/L Normal 21.0-32.0 [facility] Comment on above: Performed By: #### U CLINT, CMP, LIPID, DBIL, PHOS, MG #### [facility] [address] [place] [address] Dr. Brea Causey Creatinine [Mass/Vol] 1.07 mg/dL Normal 0.70-1.30 [facility] Comment on above: Performed By: #### U CLINT, CMP, LIPID, DBIL, PHOS, MG #### [facility] [address] [place] [address] Dr. Brea Causey EGFR-AF MALTESE >60 Normal >=60 [facility] Comment on above: Performed By: #### U CLINT, CMP, LIPID, DBIL, PHOS, MG #### [facility] [address] [place] [address] Dr. Brea Causey EGFR-NON AF MALTESE >60 Normal >=60 [facility] Comment on above: Performed By: #### U CLINT, CMP, LIPID, DBIL, PHOS, MG #### [facility] [address] [place] [address] Dr. Brea Causey Globulin (S) [Mass/Vol] 3.5 g/dL Normal [facility] Comment on above: Performed By: #### U CLINT, CMP, LIPID, DBIL, PHOS, MG #### [facility] [address] [place] [address] Dr. Brea Causey Glucose [Mass/Vol] 179 mg/dL Critically high 74-106 [facility] Comment on above: Performed By: #### U CLINT, CMP, LIPID, DBIL, PHOS, MG #### [facility] [address] [place] [address] Dr. Brea Causey Potassium [Moles/Vol] 5.1 mmol/L Normal 3.5-5.1 [facility] Comment on above: Performed By: #### U CLINT, CMP, LIPID, DBIL, PHOS, MG #### [facility] [address] [place] [address] Dr. Brea Causey Protein [Mass/Vol] 7.3 g/dL Normal 6.4-8.2 [facility] Comment on above: Performed By: #### U CLINT, CMP, LIPID, DBIL, PHOS, MG #### [facility] [address] [address] [address] Brea Causey Sodium [Moles/Vol] 131 mmol/L Critically low 136-145 [facility] Comment on above: Performed By: #### U CLINT, CMP, LIPID, DBIL, PHOS, MG #### [facility] [address] [address] [address] Brea Causey Urea nitrogen [Mass/Vol] 10.0 mg/dL Normal 7.0-18.0 [facility] Comment on above: Performed By: #### U CLINT, CMP, LIPID, DBIL, PHOS, MG #### [facility] [address] [place] [address] Dr. Brea Causey Urea nitrogen/Creatinine [Mass ratio] 9.3 mg/mg Normal [facility] Comment on above: Performed By: #### U CLINT, CMP, LIPID, DBIL, PHOS, MG #### [facility] [address] [place] [address] Dr. Brea Causey URIC ACID SERUMon 08-30-2022 Urate [Mass/Vol] 6.0 mg/dL Normal 3.5-7.2 [facility] Comment on above: Performed By: #### U CLINT, CMP, LIPID, DBIL, PHOS, MG #### [facility] [address] [place] [address] Dr. Brea Causey FK506 (TACROLIMUS) WHOLE BLO ODon 08-03-2022 Tacrolimus (FK506), Blood 3.2 ng/mL Normal 2.0-20.0 [facility] Comment on above: Result Comment: Trou gh (immediately following transplant) 15.0 . Trough (steady state, 2 weeks or more after transplant): 3.0 - 8.0 . Performed by LC-MS/MS technology. Performed By: #### C BC #### [facility] [address] [place] [address] Dr. Brea Causey BILIRUBIN CONJUGATED (DIRECT )on 08-01-2022 BILI, CONJUGATED 0.1 mg/dL Normal 0.0-0.2 [facility] Comment on above: Performed By: #### U CLINT, CMP, LIPID, DBIL, PHOS, MG #### [facility] [address] [place] [address] Dr. Brea Causey CBC AUTO DIFFon 08-01-2022 BASO # 0.0 103/ul Normal 0.0-0.1 [facility] Comment on above: Performed By: #### C BC #### [facility] [address] [place] [address] Dr. Brea Causey Basophils/100 WBC (Bld) 0.7 % Normal 0.2-2.0 [facility] Comment on above: Performed By: #### C BC #### [facility] [address] [place] [address] Dr. Brea Causey EO # 0.1 103/ul Normal 0.0-0.7 [facility] Comment on above: Performed By: #### C BC #### [facility] [address] [place] [address] Dr. Brea Causey Eosinophils/100 WBC (Bld) 2.4 % Normal 0.9-7.0 [facility] Comment on above: Performed By: #### C BC #### [facility] [address] [place] [address] Dr. Brea Causey Erythrocyte distribution width (RBC) [Ratio] 13.3 % Normal 11.0-15.0 [facility] Comment on above: Performed By: #### C BC #### [facility] [address] [place] [address] Dr. Brea Causey Hematocrit (Bld) [Volume fraction] 36.5 % Critically low 42.0-54.0 [facility] Comment on above: Performed By: #### C BC #### [facility] [address] [place] [address] Dr. Brea Causey Hemoglobin (Bld) [Mass/Vol] 12.1 g/dL Critically low 14.0-18.0 [facility] Comment on above: Performed By: #### C BC #### [facility] [address] [place] [address] Dr. Brea Causey IG # 0.07 10e3/ul Critically high 0.00-0.[address] [facility] [facility] Comment on above: Performed By: #### C BC #### [facility] [address] [place] [address] Dr. Brea Causey IG % 1.2 % Critically high 0.0-0.5 [facility] Comment on above: Performed By: #### C BC #### [facility] [address] [place] [address] Dr. Brea Causey LYMPH # 0.9 103/ul Critically low 1.2-3.8 [facility] Comment on above: Performed By: #### C BC #### [facility] [address] [place] [address] Dr. Brea Causey Lymphocytes/100 WBC (Bld) 14.5 % Critically low 20.5-60.0 [facility] Comment on above: Performed By: #### C BC #### [facility] [address] [place] [address] Dr. Brea Causey MANUAL DIFF REQ NO Normal [facility] Comment on above: Performed By: #### C BC #### [facility] [address] [place] [address] Dr. Brea Causey MCH (RBC) [Entitic mass] 28.8 pg Normal 25.9-34.0 [facility] Comment on above: Performed By: #### C BC #### [facility] [address] [place] [address] Dr. Brea Causey MCHC (RBC) [Mass/Vol] 33.2 g/dL Normal 29.9-35.2 [facility] Comment on above: Performed By: #### C BC #### [facility] [address] [place] [address] Dr. Brea Causey MCV (RBC) [Entitic vol] 86.9 fL Normal 80.0-94.0 [facility] Comment on above: Performed By: #### C BC #### [facility] [address] [place] [address] Dr. Brea Causey MONO # 0.6 103/ul Normal 0.3-0.8 [facility] Comment on above: Performed By: #### C BC #### [facility] [address] [address] [address] Brea Causey Monocytes/100 WBC (Bld) 10.3 % Normal 1.7-12.0 [facility] Comment on above: Performed By: #### C BC #### [facility] [address] [address] [address] Brea Causey NEUT # 4.2 103/ul Normal 1.4-6.5 [facility] Comment on above: Performed By: #### C BC #### [facility] [address] [place] [address] Dr. Brea Causey Neutrophils/100 WBC (Bld) 70.9 % Normal 43.0-75.0 [facility] Comment on above: Performed By: #### C BC #### [facility] [address] [place] [address] Dr. Brea Causey Platelet mean volume (Bld) [Entitic vol] 9.1 fL Critically low 9.5-13.5 [facility] Comment on above: Performed By: #### C BC #### [facility] [address] [place] [address] Dr. Brea Causey PLT 248 103/ul Normal 150-450 [facility] Comment on above: Performed By: #### C BC #### [facility] [address] [place] [address] Dr. Brea Causey RBC 4.20 106/ul Critically low 4.70-6.10 [facility] Comment on above: Performed By: #### C BC #### [facility] [address] [place] [address] Dr. Brea Causey WBC 5.9 103/ul Normal 4.0-11.0 [facility] Comment on above: Performed By: #### C BC #### [facility] [address] [place] [address] Dr. Brea Causey LIPID PROFILEon 08-01-2022 CHOL-HDL RATIO NORM SEE BELOW Normal [facility] Comment on above: Result Comment: 3.3 - 4.4 LOW RISK 4.4 - 7.1 AVERAGE RISK 7.1 - 11.0 MODERATE RISK >11.0 HIGH RISK Performed By: #### U CLINT, CMP, LIPID, DBIL, PHOS, MG #### [facility] [address] [address] [address] Brea Causey Cholesterol [Mass/Vol] 95 mg/dL Normal <=200 [facility] Comment on above: Performed By: #### U CLINT, CMP, LIPID, DBIL, PHOS, MG #### [facility] [address] [address] [address] Brea Causey Cholesterol in HDL [Mass/Vol] 49 mg/dL Normal 40-60 [facility] Comment on above: Performed By: #### U CLINT, CMP, LIPID, DBIL, PHOS, MG #### [facility] [address] [address] [address] Brea Causey Cholesterol in LDL [Mass/Vol] 35.4 mg/dL Normal [facility] Comment on above: Performed By: #### U CLINT, CMP, LIPID, DBIL, PHOS, MG #### [facility] [address] [address] [address] rBea Causey Cholesterol.total/Cho lesterol in HDL [Mass ratio] 1.9 {ratio} Normal [facility] Comment on above: Performed By: #### U CLINT, CMP, LIPID, DBIL, PHOS, MG #### [facility] [address] [address] [address] Brea Causey HDL NORMAL > or = 60 mg/dl - LO W CARDIOVASCULAR RISK <40 mg/dl - HIGH CARDIOVASCULAR RISK Normal [facility] Comment on above: Performed By: #### U CLINT, CMP, LIPID, DBIL, PHOS, MG #### [facility] [address] [address] [address] Brea Causey LDL CALC NORMAL SEE BELOW Normal [facility] Comment on above: Result Comment: <100 mg/dl OPTIMAL 100 - 129 mg/dl NEAR OR ABOVE OPTIMAL 130 - 159 mg/dl BORDERLINE HIGH 160 - 189 mg/dl HIGH >190 mg/dl VERY HIGH Performed By: #### U CLINT, CMP, LIPID, DBIL, PHOS, MG #### [facility] [address] [address] [address] Brea Causey Triglyceride [Mass/Vol] 53 mg/dL Normal <=150 [facility] Comment on above: Performed By: #### U CLINT, CMP, LIPID, DBIL, PHOS, MG #### [facility] [address] [address] [address] rBea Causey VLDL CALC 10.6 mg/dL Normal [facility] Comment on above: Performed By: #### U CLINT, CMP, LIPID, DBIL, PHOS, MG #### [facility] [address] [place] [address] Dr. Brea Causey MAGNESIUMon 08-01-2022 Magnesium [Mass/Vol] 1.5 mg/dL Critically low 1.8-2.4 [facility] Comment on above: Performed By: #### U CLINT, CMP, LIPID, DBIL, PHOS, MG #### [facility] [address] [place] [address] Dr. Brea Causey PHOSPHORUSon 08-01-2022 Phosphate [Mass/Vol] 3.8 mg/dL Normal 2.6-4.7 [facility] Comment on above: Performed By: #### U CLINT, CMP, LIPID, DBIL, PHOS, MG #### [facility] [address] [place] [address] Dr. Brea Causey PROF 14(COMP METB)on 023 Albumin [Mass/Vol] 4.1 g/dL Normal 3.4-5.0 [facility] Comment on above: Performed By: #### U CLINT, CMP, LIPID, DBIL, PHOS, MG #### [facility] [address] [place] [address] Dr. Brea Causey Albumin/Globulin [Mass ratio] 1.3 {ratio} Normal [facility] Comment on above: Performed By: #### U CLINT, CMP, LIPID, DBIL, PHOS, MG #### [facility] [address] [place] [address] Dr. Brea Causey ALP [Catalytic activity/Vol] 197 U/L Critically high 46-116 [facility] Comment on above: Performed By: #### U CLINT, CMP, LIPID, DBIL, PHOS, MG #### [facility] [address] [place] [address] Dr. Brea Causey ALT [Catalytic activity/Vol] 26 U/L Normal 16-63 [facility] Comment on above: Performed By: #### U CLINT, CMP, LIPID, DBIL, PHOS, MG #### [facility] [address] [place] [address] Dr. Brea Causey Anion gap [Moles/Vol] 12.6 mmol/L Normal [facility] Comment on above: Performed By: #### U CLINT, CMP, LIPID, DBIL, PHOS, MG #### [facility] [address] [place] [address] Dr. Brea Causey AST [Catalytic activity/Vol] 20 U/L Normal 15-37 [facility] Comment on above: Performed By: #### U CLINT, CMP, LIPID, DBIL, PHOS, MG #### [facility] [address] [place] [address] Dr. Brea Causey Bilirubin [Mass/Vol] 0.4 mg/dL Normal 0.2-1.0 [facility] Comment on above: Performed By: #### U CLINT, CMP, LIPID, DBIL, PHOS, MG #### [facility] [address] [place] [address] Dr. Brea Causey Calcium [Mass/Vol] 7.9 mg/dL Critically low 8.5-10.1 [facility] Comment on above: Performed By: #### U CLINT, CMP, LIPID, DBIL, PHOS, MG #### [facility] [address] [place] [address] Dr. Brea Causey Chloride [Moles/Vol] 97 mmol/L Critically low 98-107 [facility] Comment on above: Performed By: #### U CLINT, CMP, LIPID, DBIL, PHOS, MG #### [facility] [address] [address] [address] Brea Causey CO2 [Moles/Vol] 28.9 mmol/L Normal 21.0-32.0 [facility] Comment on above: Performed By: #### U CLINT, CMP, LIPID, DBIL, PHOS, MG #### [facility] [address] [place] [address] Dr. Brea Causey Creatinine [Mass/Vol] 0.98 mg/dL Normal 0.70-1.30 [facility] Comment on above: Performed By: #### U CLINT, CMP, LIPID, DBIL, PHOS, MG #### [facility] [address] [place] [address] Dr. Brea Causey EGFR-AF MALTESE >60 Normal >=60 [facility] Comment on above: Performed By: #### U CLINT, CMP, LIPID, DBIL, PHOS, MG #### [facility] [address] [place] [address] Dr. Brea Causey EGFR-NON AF MALTESE >60 Normal >=60 [facility] Comment on above: Performed By: #### U CLINT, CMP, LIPID, DBIL, PHOS, MG #### [facility] [address] [place] [address] Dr. Brea Causey Globulin (S) [Mass/Vol] 3.2 g/dL Normal [facility] Comment on above: Performed By: #### U CLINT, CMP, LIPID, DBIL, PHOS, MG #### [facility] [address] [place] [address] Dr. Brea Causey Glucose [Mass/Vol] 174 mg/dL Critically high 74-106 [facility] Comment on above: Performed By: #### U CLINT, CMP, LIPID, DBIL, PHOS, MG #### [facility] [address] [place] [address] Dr. Brea Causey Potassium [Moles/Vol] 4.5 mmol/L Normal 3.5-5.1 [facility] Comment on above: Performed By: #### U CLINT, CMP, LIPID, DBIL, PHOS, MG #### [facility] [address] [address] [address] Brea Causey Protein [Mass/Vol] 7.3 g/dL Normal 6.4-8.2 [facility] Comment on above: Performed By: #### U CLINT, CMP, LIPID, DBIL, PHOS, MG #### [facility] [address] [place] [address] Dr. Brea Causey Sodium [Moles/Vol] 134 mmol/L Critically low 136-145 [facility] Comment on above: Performed By: #### U CLINT, CMP, LIPID, DBIL, PHOS, MG #### [facility] [address] [place] [address] Dr. Brea Causey Urea nitrogen [Mass/Vol] 8.0 mg/dL Normal 7.0-18.0 [facility] Comment on above: Performed By: #### U CLINT, CMP, LIPID, DBIL, PHOS, MG #### [facility] [address] [place] [address] Dr. Brea Causey Urea nitrogen/Creatinine [Mass ratio] 8.2 mg/mg Normal [facility] Comment on above: Performed By: #### U CLINT, CMP, LIPID, DBIL, PHOS, MG #### [facility] [address] [place] [address] Dr. Brea Causey URIC ACID SERUMon 08-01-2022 Urate [Mass/Vol] 5.8 mg/dL Normal 3.5-7.2 [facility] Comment on above: Performed By: #### U CLINT, CMP, LIPID, DBIL, PHOS, MG #### [facility] [address] [place] [address] Dr. Brea Causey FK506 (TACROLIMUS) WHOLE BLO ODon 07-07-2022 Tacrolimus (FK506), Blood 3.6 ng/mL Normal 2.0-20.0 [facility] Comment on above: Result Comment: Trou gh (immediately following transplant) 15.0 . Trough (steady state, 2 weeks or more after transplant): 3.0 - 8.0 . Performed by LC-MS/MS technology. Performed By: #### C BC #### [facility] [address] [place] [address] Dr. Brea Causey BILIRUBIN CONJUGATED (DIRECT )on 07-04-2022 BILI, CONJUGATED 0.1 mg/dL Normal 0.0-0.2 [facility] Comment on above: Performed By: #### B KVIRUS #### [facility] [address] [place] [address] Dr. Brea Causey CBC AUTO DIFFon 07-04-2022 BASO # 0.0 103/ul Normal 0.0-0.1 [facility] Comment on above: Performed By: #### U CLINT, CMP, LIPID, DBIL, PHOS, MG #### [facility] [address] [place] [address] Dr. Brea Causey Basophils/100 WBC (Bld) 0.5 % Normal 0.2-2.0 [facility] Comment on above: Performed By: #### U CLINT, CMP, LIPID, DBIL, PHOS, MG #### [facility] [address] [place] [address] Dr. Brea Causey EO # 0.2 103/ul Normal 0.0-0.7 [facility] Comment on above: Performed By: #### U CLINT, CMP, LIPID, DBIL, PHOS, MG #### [facility] [address] [place] [address] Dr. Brea Causey Eosinophils/100 WBC (Bld) 2.6 % Normal 0.9-7.0 [facility] Comment on above: Performed By: #### U CLINT, CMP, LIPID, DBIL, PHOS, MG #### [facility] [address] [place] [address] Dr. Brea Causey Erythrocyte distribution width (RBC) [Ratio] 13.3 % Normal 11.0-15.0 [facility] Comment on above: Performed By: #### U CLINT, CMP, LIPID, DBIL, PHOS, MG #### [facility] [address] [place] [address] Dr. Brea Causey Hematocrit (Bld) [Volume fraction] 37.2 % Critically low 42.0-54.0 [facility] Comment on above: Performed By: #### U CLINT, CMP, LIPID, DBIL, PHOS, MG #### [facility] [address] [address] [address] Brea Causey Hemoglobin (Bld) [Mass/Vol] 12.4 g/dL Critically low 14.0-18.0 [facility] Comment on above: Performed By: #### U CLINT, CMP, LIPID, DBIL, PHOS, MG #### [facility] [address] [address] [address] Brea Causey IG # 0.09 10e3/ul Critically high 0.00-0.[address] [facility] Comment on above: Performed By: #### U CLINT, CMP, LIPID, DBIL, PHOS, MG #### [facility] [address] [place] [address] Dr. Brea Causey IG % 1.4 % Critically high 0.0-0.[address] [facility] Comment on above: Performed By: #### U CLINT, CMP, LIPID, DBIL, PHOS, MG #### [facility] [address] [address] [address] Brea Causey LYMPH # 1.0 103/ul Critically low 1.2-3.8 [facility] Comment on above: Performed By: #### U CLINT, CMP, LIPID, DBIL, PHOS, MG #### [facility] [address] [place] [address] Dr. Brea Causey Lymphocytes/100 WBC (Bld) 15.2 % Critically low 20.5-60.0 [facility] Comment on above: Performed By: #### U CLINT, CMP, LIPID, DBIL, PHOS, MG #### [facility] [address] [address] [address] Brea Causey MANUAL DIFF REQ NO Normal [facility] Comment on above: Performed By: #### U CLINT, CMP, LIPID, DBIL, PHOS, MG #### [facility] [address] [place] [address] Dr. Brea Causey MCH (RBC) [Entitic mass] 28.8 pg Normal 25.9-34.0 [facility] Comment on above: Performed By: #### U CLINT, CMP, LIPID, DBIL, PHOS, MG #### [facility] [address] [place] [address] Dr. Brea Causey MCHC (RBC) [Mass/Vol] 33.3 g/dL Normal 29.9-35.2 [facility] Comment on above: Performed By: #### U CLINT, CMP, LIPID, DBIL, PHOS, MG #### [facility] [address] [place] [address] Dr. Brea Causey MCV (RBC) [Entitic vol] 86.5 fL Normal 80.0-94.0 [facility] Comment on above: Performed By: #### U CLINT, CMP, LIPID, DBIL, PHOS, MG #### [facility] [address] [place] [address] Dr. Brea Causey MONO # 0.7 103/ul Normal 0.3-0.8 [facility] Comment on above: Performed By: #### U CLINT, CMP, LIPID, DBIL, PHOS, MG #### [facility] [address] [place] [address] Dr. Brea Causey Monocytes/100 WBC (Bld) 10.0 % Normal 1.7-12.0 [facility] Comment on above: Performed By: #### U CLINT, CMP, LIPID, DBIL, PHOS, MG #### [facility] [address] [place] [address] Dr. Brea Causey NEUT # 4.6 103/ul Normal 1.4-6.5 [facility] Comment on above: Performed By: #### U CLINT, CMP, LIPID, DBIL, PHOS, MG #### [facility] [address] [place] [address] Dr. Brea Causey Neutrophils/100 WBC (Bld) 70.3 % Normal 43.0-75.0 [facility] Comment on above: Performed By: #### U CLINT, CMP, LIPID, DBIL, PHOS, MG #### [facility] [address] [place] [address] Dr. Brea Causey Platelet mean volume (Bld) [Entitic vol] 8.8 fL Critically low 9.5-13.5 [facility] Comment on above: Performed By: #### U CLINT, CMP, LIPID, DBIL, PHOS, MG #### [facility] [address] [address] [address] Brea Causey PLT 240 103/ul Normal 150-450 [facility] Comment on above: Performed By: #### U CLINT, CMP, LIPID, DBIL, PHOS, MG #### [facility] [address] [address] [address] Brea Causey RBC 4.30 106/ul Critically low 4.70-6.[address] [facility] Comment on above: Performed By: #### U CLINT, CMP, LIPID, DBIL, PHOS, MG #### [facility] [address] [address] [address] Brea Causey WBC 6.5 103/ul Normal 4.0-11.0 [facility] Comment on above: Performed By: #### U CLINT, CMP, LIPID, DBIL, PHOS, MG #### [facility] [address] [address] [address] Brea Causey LIPID PROFILEon 07-04-2022 CHOL-HDL RATIO NORM SEE BELOW Normal [facility] Comment on above: Result Comment: 3.3 - 4.4 LOW RISK 4.4 - 7.1 AVERAGE RISK 7.1 - 11.0 MODERATE RISK >11.0 HIGH RISK Performed By: #### U CLINT, CMP, LIPID, DBIL, PHOS, MG #### [facility] [address] [address] [address] Brea Causey Cholesterol [Mass/Vol] 86 mg/dL Normal <=200 [facility] Comment on above: Performed By: #### U CLINT, CMP, LIPID, DBIL, PHOS, MG #### [facility] [address] [address] [address] Brea Causey Cholesterol in HDL [Mass/Vol] 44 mg/dL Normal 40-60 [facility] Comment on above: Performed By: #### U CLINT, CMP, LIPID, DBIL, PHOS, MG #### [facility] [address] [address] [address] Brea Causey Cholesterol in LDL [Mass/Vol] 28.0 mg/dL Normal [facility] Comment on above: Performed By: #### U CLINT, CMP, LIPID, DBIL, PHOS, MG #### [facility] [address] [address] [address] Brea Causey Cholesterol.total/Cho lesterol in HDL [Mass ratio] 2.0 {ratio} Normal [facility] Comment on above: Performed By: #### U CLINT, CMP, LIPID, DBIL, PHOS, MG #### [facility] [address] [place] [address] Dr. Brea Causey HDL NORMAL > or = 60 mg/dl - LO W CARDIOVASCULAR RISK <40 mg/dl - HIGH CARDIOVASCULAR RISK Normal [facility] Comment on above: Performed By: #### U CLINT, CMP, LIPID, DBIL, PHOS, MG #### [facility] [address] [place] [address] Dr. Brea Causey LDL CALC NORMAL SEE BELOW Normal [facility] Comment on above: Result Comment: <100 mg/dl OPTIMAL 100 - 129 mg/dl NEAR OR ABOVE OPTIMAL 130 - 159 mg/dl BORDERLINE HIGH 160 - 189 mg/dl HIGH >190 mg/dl VERY HIGH Performed By: #### U CLINT, CMP, LIPID, DBIL, PHOS, MG #### [facility] [address] [address] [address] Brea Causey Triglyceride [Mass/Vol] 70 mg/dL Normal <=150 [facility] Comment on above: Performed By: #### U CLINT, CMP, LIPID, DBIL, PHOS, MG #### [facility] [address] [address] [address] Brea Causey VLDL CALC 14.0 mg/dL Normal [facility] Comment on above: Performed By: #### U CLINT, CMP, LIPID, DBIL, PHOS, MG #### [facility] [address] [place] [address] Dr. Brea Causey MAGNESIUMon 07-04-2022 Magnesium [Mass/Vol] 1.4 mg/dL Critically low 1.8-2.4 [facility] Comment on above: Performed By: #### U CLINT, CMP, LIPID, DBIL, PHOS, MG #### [facility] [address] [place] [address] Dr. Brea Causey PHOSPHORUSon 07-04-2022 Phosphate [Mass/Vol] 4.1 mg/dL Normal 2.6-4.7 [facility] Comment on above: Performed By: #### U CLINT, CMP, LIPID, DBIL, PHOS, MG #### [facility] [address] [place] [address] Dr. Brea Causey PROF 14(COMP METB)on 023 Albumin [Mass/Vol] 4.0 g/dL Normal 3.4-5.0 [facility] Comment on above: Performed By: #### B KVIRUS #### [facility] [address] [place] [address] Dr. Brea Causey Albumin/Globulin [Mass ratio] 1.3 {ratio} Normal [facility] Comment on above: Performed By: #### B KVIRUS #### [facility] [address] [place] [address] Dr. Brea Causey ALP [Catalytic activity/Vol] 212 U/L Critically high 46-116 [facility] Comment on above: Performed By: #### B KVIRUS #### [facility] [address] [place] [address] Dr. Brea Causey ALT [Catalytic activity/Vol] 31 U/L Normal 16-63 [facility] Comment on above: Performed By: #### B KVIRUS #### [facility] [address] [place] [address] Dr. Brea Causey Anion gap [Moles/Vol] 11.9 mmol/L Normal [facility] Comment on above: Performed By: #### B KVIRUS #### [facility] [address] [place] [address] Dr. Brea Causey AST [Catalytic activity/Vol] 21 U/L Normal 15-37 [facility] Comment on above: Performed By: #### B KVIRUS #### [facility] [address] [place] [address] Dr. Brea Causey Bilirubin [Mass/Vol] 0.3 mg/dL Normal 0.2-1.0 [facility] Comment on above: Performed By: #### B KVIRUS #### [facility] [address] [place] [address] Dr. Brea Causey Calcium [Mass/Vol] 8.1 mg/dL Critically low 8.5-10.1 [facility] Comment on above: Performed By: #### B KVIRUS #### [facility] [address] [place] [address] Dr. Brea Causey Chloride [Moles/Vol] 97 mmol/L Critically low 98-107 [facility] Comment on above: Performed By: #### B KVIRUS #### [facility] [address] [place] [address] Dr. Brea Causey CO2 [Moles/Vol] 26.8 mmol/L Normal 21.0-32.0 [facility] Comment on above: Performed By: #### B KVIRUS #### [facility] [address] [place] [address] Dr. Brea Causey Creatinine [Mass/Vol] 0.99 mg/dL Normal 0.70-1.30 [facility] Comment on above: Performed By: #### B KVIRUS #### [facility] [address] [place] [address] Dr. Brea Causey EGFR-AF MALTESE >60 Normal >=60 [facility] Comment on above: Performed By: #### B KVIRUS #### [facility] [address] [place] [address] Dr. Brea Causey EGFR-NON AF MALTESE >60 Normal >=60 [facility] Comment on above: Performed By: #### B KVIRUS #### [facility] [address] [place] [address] Dr. Brea Causey Globulin (S) [Mass/Vol] 3.2 g/dL Normal [facility] Comment on above: Performed By: #### B KVIRUS #### [facility] [facility] [address] [address] [address] Brea Causey Glucose [Mass/Vol] 169 mg/dL Critically high 74-106 [facility] Comment on above: Performed By: #### B KVIRUS #### [facility] [address] [address] [address] Brea Causey Potassium [Moles/Vol] 4.7 mmol/L Normal 3.5-5.1 [facility] Comment on above: Performed By: #### B KVIRUS #### [facility] [address] [address] [address] Brea Causey Protein [Mass/Vol] 7.2 g/dL Normal 6.4-8.2 [facility] Comment on above: Performed By: #### B KVIRUS #### [facility] [address] [place] [address] Dr. Brea Causey Sodium [Moles/Vol] 131 mmol/L Critically low 136-145 [facility] Comment on above: Performed By: #### B KVIRUS #### [facility] [address] [address] [address] Brea Causey Urea nitrogen [Mass/Vol] 9.0 mg/dL Normal 7.0-18.0 [facility] Comment on above: Performed By: #### B KVIRUS #### [facility] [address] [place] [address] Dr. Brea Causey Urea nitrogen/Creatinine [Mass ratio] 9.1 mg/mg Normal [facility] Comment on above: Performed By: #### B KVIRUS #### [facility] [address] [place] [address] Dr. Brea Causey URIC ACID SERUMon 07-04-2022 Urate [Mass/Vol] 6.1 mg/dL Normal 3.5-7.2 [facility] Comment on above: Performed By: #### U CLINT, CMP, LIPID, DBIL, PHOS, MG #### [facility] [address] [address] [address] Brea Causey TESTOSTERONE, FREE,DIRECT, T OTALon 05-28-2022 Free Testosterone(Direct) 5.9 pg/mL Critically low 6.6-18.1 [facility] Comment on above: Result Comment: Perf ormed at: BN Performed By: #### U CLINT, CMP, LIPID, DBIL, PHOS, MG #### [facility] [address] [address] [address] Brea Causey Testosterone [Mass/Vol] 513 ng/dL Normal 264-916 [facility] Comment on above: Result Comment: Adul t male reference interval is based on a population of healthy nonobese males (BMI <30) between 19 and 39 years old. Steven, et.al. JCEM 2017,102;6527-8106. PMID: [id number]. Performed at: CB Performed By: #### U CLINT, CMP, LIPID, DBIL, PHOS, MG #### [facility] [address] [place] [address] Dr. Brea Causey FK506 (TACROLIMUS) WHOLE BLO ODon 05-26-2022 Tacrolimus (FK506), Blood 3.9 ng/mL Normal 2.0-20.0 [facility] Comment on above: Result Comment: Trou gh (immediately following transplant) 15.0 . Trough (steady state, 2 weeks or more after transplant): 3.0 - 8.0 . Performed by LC-MS/MS technology. Performed By: #### B KVIRUS #### [facility] [address] [place] [address] Dr. Brea Causey BK VIRUS PCR QUANTon 023 BKV DNA QUANT PCR PLASMA Negative Normal Negative [facility] Comment on above: Result Comment: No B K DNA detected. . The linear range of the assay is 22 - 100,000,000 IU/mL. Performed By: #### U CLINT, CMP, LIPID, DBIL, PHOS, MG #### [facility] [address] [place] [address] Dr. Brea Causey Log10 BKV DNA Plasma Normal [facility] Comment on above: Performed By: #### U CLINT, CMP, LIPID, DBIL, PHOS, MG #### [facility] [address] [place] [address] Dr. Brea Causey BILIRUBIN CONJUGATED (DIRECT )on 05-23-2022 BILI, CONJUGATED 0.2 mg/dL Normal 0.0-0.2 [facility] Comment on above: Performed By: #### C BC #### [facility] [address] [place] [address] Dr. Brea Causey CBC AUTO DIFFon 05-23-2022 BASO # 0.0 103/ul Normal 0.0-0.1 [facility] Comment on above: Performed By: #### B KVIRUS #### [facility] [address] [place] [address] Dr. Brea Causey Basophils/100 WBC (Bld) 0.6 % Normal 0.2-2.0 [facility] Comment on above: Performed By: #### B KVIRUS #### [facility] [address] [place] [address] Dr. Brea Causey EO # 0.1 103/ul Normal 0.0-0.7 [facility] Comment on above: Performed By: #### B KVIRUS #### [facility] [address] [place] [address] Dr. Brea Causey Eosinophils/100 WBC (Bld) 1.7 % Normal 0.9-7.0 [facility] Comment on above: Performed By: #### B KVIRUS #### [facility] [address] [place] [address] Dr. Brea Causey Erythrocyte distribution width (RBC) [Ratio] 13.4 % Normal 11.0-15.0 [facility] Comment on above: Performed By: #### B KVIRUS #### [facility] [address] [place] [address] Dr. Brea Causey Hematocrit (Bld) [Volume fraction] 38.8 % Critically low 42.0-54.0 [facility] Comment on above: Performed By: #### B KVIRUS #### [facility] [address] [place] [address] Dr. Brea Causey Hemoglobin (Bld) [Mass/Vol] 12.4 g/dL Critically low 14.0-18.0 [facility] Comment on above: Performed By: #### B KVIRUS #### [facility] [address] [address] [address] Brea Causey IG # 0.07 10e3/ul Critically high 0.00-0.[address] [facility] Comment on above: Performed By: #### B KVIRUS #### [facility] [address] [place] [address] Dr. Brea Causey IG % 1.1 % Critically high 0.0-0.5 [facility] Comment on above: Performed By: #### B KVIRUS #### [facility] [address] [place] [address] Dr. Brea Causey LYMPH # 0.9 103/ul Critically low 1.2-3.8 [facility] Comment on above: Performed By: #### B KVIRUS #### [facility] [address] [place] [address] Dr. Brea Causey Lymphocytes/100 WBC (Bld) 14.1 % Critically low 20.5-60.0 [facility] Comment on above: Performed By: #### B KVIRUS #### [facility] [address] [address] [address] Brea Causey MANUAL DIFF REQ NO Normal [facility] Comment on above: Performed By: #### B KVIRUS #### [facility] [address] [place] [address] Dr. Brea Causey MCH (RBC) [Entitic mass] 29.3 pg Normal 25.9-34.0 [facility] Comment on above: Performed By: #### B KVIRUS #### [facility] [address] [address] [address] Brea Causey MCHC (RBC) [Mass/Vol] 32.0 g/dL Normal 29.9-35.2 [facility] Comment on above: Performed By: #### B KVIRUS #### [facility] [address] [place] [address] Dr. Brea Causey MCV (RBC) [Entitic vol] 91.7 fL Normal 80.0-94.0 [facility] Comment on above: Performed By: #### B KVIRUS #### [facility] [address] [address] [address] Brea Causey MONO # 0.7 103/ul Normal 0.3-0.8 [facility] Comment on above: Performed By: #### B KVIRUS #### [facility] [address] [address] [address] Brea Causey Monocytes/100 WBC (Bld) 10.0 % Normal 1.7-12.0 [facility] Comment on above: Performed By: #### B KVIRUS #### [facility] [address] [address] [address] Brea Causey NEUT # 4.7 103/ul Normal 1.4-6.5 [facility] Comment on above: Performed By: #### B KVIRUS #### [facility] [address] [place] [address] Dr. Brea Causey Neutrophils/100 WBC (Bld) 72.5 % Normal 43.0-75.0 [facility] Comment on above: Performed By: #### B KVIRUS #### [facility] [address] [place] [address] Dr. Brea Causey Platelet mean volume (Bld) [Entitic vol] 9.4 fL Critically low 9.5-13.5 [facility] Comment on above: Performed By: #### B KVIRUS #### [facility] [address] [place] [address] Dr. Brea Causey PLT 256 103/ul Normal 150-450 [facility] Comment on above: Performed By: #### B KVIRUS #### [facility] [address] [place] [address] Dr. Brea Causey RBC 4.23 106/ul Critically low 4.70-6.[address] [facility] Comment on above: Performed By: #### B KVIRUS #### [facility] [address] [address] [address] Brea Causey WBC 6.5 103/ul Normal 4.0-11.0 [facility] Comment on above: Performed By: #### B KVIRUS #### [facility] [address] [address] [address] Brea Causey GLYCOHEMOGLOBIN A1Con 2022 ADA RECOMMENDATION SEE BELOW Normal [facility] Comment on above: Result Comment: ADA RECOMMENDED LIMIT 4.0 - 6.0 ADA THERAPEUTIC TARGET < 7.0 ACTION SUGGESTED > 7.0 Performed By: #### U CLINT, CMP, LIPID, DBIL, PHOS, MG #### [facility] [address] [address] [address] Brea Causey Glucose [Mass/Vol] 160 mg/dL Normal [facility] Comment on above: Performed By: #### U CLINT, CMP, LIPID, DBIL, PHOS, MG #### [facility] [address] [address] [address] Brea Causey HbA1c (Bld) [Mass fraction] 7.2 % Critically high 4.5-6.2 [facility] Comment on above: Performed By: #### U CLINT, CMP, LIPID, DBIL, PHOS, MG #### [facility] [address] [address] [address] Brea Causey LIPID PROFILEon 05-23-2022 CHOL-HDL RATIO NORM SEE BELOW Normal [facility] Comment on above: Result Comment: 3.3 - 4.4 LOW RISK 4.4 - 7.1 AVERAGE RISK 7.1 - 11.0 MODERATE RISK >11.0 HIGH RISK Performed By: #### C BC #### [facility] [address] [address] [address] Brea Causey Cholesterol [Mass/Vol] 87 mg/dL Normal <=200 [facility] Comment on above: Performed By: #### C BC #### [facility] [address] [address] [address] Brea Causey Cholesterol in HDL [Mass/Vol] 54 mg/dL Normal 40-60 [facility] Comment on above: Performed By: #### C BC #### [facility] [address] [address] [address] Brea Causey Cholesterol in LDL [Mass/Vol] 24.6 mg/dL Normal [facility] Comment on above: Performed By: #### C BC #### [facility] [address] [address] [address] Brea Causey Cholesterol.total/Cho lesterol in HDL [Mass ratio] 1.6 {ratio} Normal [facility] Comment on above: Performed By: #### C BC #### [facility] [address] [address] [address] Brea Causey HDL NORMAL > or = 60 mg/dl - LO W CARDIOVASCULAR RISK <40 mg/dl - HIGH CARDIOVASCULAR RISK Normal [facility] Comment on above: Performed By: #### C BC #### [facility] [address] [address] [address] Brea Causey LDL CALC NORMAL SEE BELOW Normal [facility] Comment on above: Result Comment: <100 mg/dl OPTIMAL 100 - 129 mg/dl NEAR OR ABOVE OPTIMAL 130 - 159 mg/dl BORDERLINE HIGH 160 - 189 mg/dl HIGH >190 mg/dl VERY HIGH Performed By: #### C BC #### [facility] [address] [place] [address] Dr. rBea Causey Triglyceride [Mass/Vol] 42 mg/dL Normal <=150 [facility] Comment on above: Performed By: #### C BC #### [facility] [address] [place] [address] Dr. Brea Causey VLDL CALC 8.4 mg/dL Normal [facility] Comment on above: Performed By: #### C BC #### [facility] [address] [address] [address] Brea Causey MAGNESIUMon 05-23-2022 Magnesium [Mass/Vol] 1.4 mg/dL Critically low 1.8-2.4 [facility] Comment on above: Performed By: #### C BC #### [facility] [address] [place] [address] Dr. Brea Causey PHOSPHORUSon 05-23-2022 Phosphate [Mass/Vol] 3.6 mg/dL Normal 2.6-4.7 [facility] Comment on above: Performed By: #### C BC #### [facility] [address] [place] [address] Dr. Brea Causey PROF 14(COMP METB)on 023 Albumin [Mass/Vol] 3.9 g/dL Normal 3.4-5.0 [facility] Comment on above: Performed By: #### C BC #### [facility] [address] [place] [address] Dr. Brea Causey Albumin/Globulin [Mass ratio] 1.2 {ratio} Normal [facility] Comment on above: Performed By: #### C BC #### [facility] [address] [place] [address] Dr. Brea Causey ALP [Catalytic activity/Vol] 190 U/L Critically high 46-116 [facility] Comment on above: Performed By: #### C BC #### [facility] [address] [place] [address] Dr. Brea Causey ALT [Catalytic activity/Vol] 26 U/L Normal 16-63 [facility] Comment on above: Performed By: #### C BC #### [facility] [address] [place] [address] Dr. Brea Causey Anion gap [Moles/Vol] 13.1 mmol/L Normal [facility] Comment on above: Performed By: #### C BC #### [facility] [address] [place] [address] Dr. Brea Causey AST [Catalytic activity/Vol] 18 U/L Normal 15-37 [facility] Comment on above: Performed By: #### C BC #### [facility] [address] [place] [address] Dr. Brea Causey Bilirubin [Mass/Vol] 0.4 mg/dL Normal 0.2-1.0 [facility] Comment on above: Performed By: #### C BC #### [facility] [address] [place] [address] Dr. Brea Causey Calcium [Mass/Vol] 7.8 mg/dL Critically low 8.5-10.1 [facility] Comment on above: Performed By: #### C BC #### [facility] [address] [address] [address] Brea Causey Chloride [Moles/Vol] 95 mmol/L Critically low 98-107 [facility] Comment on above: Performed By: #### C BC #### [facility] [address] [place] [address] Dr. Brea Causey CO2 [Moles/Vol] 28.8 mmol/L Normal 21.0-32.0 [facility] Comment on above: Performed By: #### C BC #### [facility] [address] [place] [address] Dr. Brea Causey Creatinine [Mass/Vol] 1.03 mg/dL Normal 0.70-1.30 [facility] Comment on above: Performed By: #### C BC #### [facility] [address] [place] [address] Dr. Brea Causey EGFR-AF MALTESE >60 Normal >=60 [facility] Comment on above: Performed By: #### C BC #### [facility] [address] [place] [address] Dr. Brea Causey EGFR-NON AF MALTESE >60 Normal >=60 [facility] Comment on above: Performed By: #### C BC #### [facility] [address] [place] [address] Dr. Brea Causey Globulin (S) [Mass/Vol] 3.2 g/dL Normal [facility] Comment on above: Performed By: #### C BC #### [facility] [address] [place] [address] Dr. Brea Causey Glucose [Mass/Vol] 155 mg/dL Critically high 74-106 [facility] Comment on above: Performed By: #### C BC #### [facility] [address] [place] [address] Dr. Brea Causey Potassium [Moles/Vol] 4.9 mmol/L Normal 3.5-5.1 [facility] Comment on above: Performed By: #### C BC #### [facility] [address] [place] [address] Dr. Brea Causey Protein [Mass/Vol] 7.1 g/dL Normal 6.4-8.2 [facility] Comment on above: Performed By: #### C BC #### [facility] [address] [address] [address] Brea Causey Sodium [Moles/Vol] 132 mmol/L Critically low 136-145 [facility] Comment on above: Performed By: #### C BC #### [facility] [address] [address] [address] Brea Causey Urea nitrogen [Mass/Vol] 8.0 mg/dL Normal 7.0-18.0 [facility] Comment on above: Performed By: #### C BC #### [facility] [address] [address] [address] Brea Causey Urea nitrogen/Creatinine [Mass ratio] 7.8 mg/mg Normal [facility] Comment on above: Performed By: #### C BC #### [facility] [address] [place] [address] Dr. Brea Causey URIC ACID SERUMon 05-23-2022 Urate [Mass/Vol] 5.6 mg/dL Normal 3.5-7.2 [facility] Comment on above: Performed By: #### C BC #### [facility] [address] [place] [address] Dr. Brea Causey [facility], [facility] Free Testosterone(Direct) 7.4 pg/mL Normal 6.6-18.1 [facility] Comment on above: Result Comment: Perf ormed at: BN Performed By: #### U CLINT, CMP, LIPID, DBIL, PHOS, MG #### [facility] [address] [place] [address] Dr. Brea Causey Testosterone [Mass/Vol] 494 ng/dL Normal 264-916 [facility] Comment on above: Result Comment: Adul t male reference interval is based on a population of healthy nonobese males (BMI <30) between 19 and 39 years old. daniel Harris.al. JCEM 2017,102;5730-9487. PMID: [id number]. Performed at: CB Performed By: #### U CLINT, CMP, LIPID, DBIL, PHOS, MG #### [facility] [address] [place] [address] Dr. Brea Causey FK506 (TACROLIMUS) WHOLE BLO ODon 05-02-2022 Tacrolimus (FK506), Blood 4.3 ng/mL Normal 2.0-20.0 [facility] Comment on above: Result Comment: Trou gh (immediately following transplant) 15.0 . Trough (steady state, 2 weeks or more after transplant): 3.0 - 8.0 . Performed by LC-MS/MS technology. Performed By: #### C BC #### [facility] [address] [place] [address] Dr. Brea Causey BILIRUBIN CONJUGATED (DIRECT )on 04-30-2022 BILI, CONJUGATED 0.1 mg/dL Normal 0.0-0.2 [facility] Comment on above: Performed By: #### U CLINT, CMP, LIPID, DBIL, PHOS, MG #### [facility] [address] [place] [address] Dr. Brea Causey CBC AUTO DIFFon 04-30-2022 BASO # 0.0 103/ul Normal 0.0-0.1 [facility] Comment on above: Performed By: #### U CLINT, CMP, LIPID, DBIL, PHOS, MG #### [facility] [address] [place] [address] Dr. Brea Causey Basophils/100 WBC (Bld) 0.5 % Normal 0.2-2.0 [facility] Comment on above: Performed By: #### U CLINT, CMP, LIPID, DBIL, PHOS, MG #### [facility] [address] [place] [address] Dr. Brea Causey EO # 0.1 103/ul Normal 0.0-0.7 [facility] Comment on above: Performed By: #### U CLINT, CMP, LIPID, DBIL, PHOS, MG #### [facility] [address] [place] [address] Dr. Brea Causey Eosinophils/100 WBC (Bld) 2.1 % Normal 0.9-7.0 [facility] Comment on above: Performed By: #### U CLINT, CMP, LIPID, DBIL, PHOS, MG #### [facility] [address] [address] [address] Brea Causey Erythrocyte distribution width (RBC) [Ratio] 13.2 % Normal 11.0-15.0 [facility] Comment on above: Performed By: #### U CLINT, CMP, LIPID, DBIL, PHOS, MG #### [facility] [address] [place] [address] Dr. Brea Causey Hematocrit (Bld) [Volume fraction] 37.0 % Critically low 42.0-54.0 [facility] Comment on above: Performed By: #### U CLINT, CMP, LIPID, DBIL, PHOS, MG #### [facility] [address] [place] [address] Dr. Brea Causey Hemoglobin (Bld) [Mass/Vol] 12.4 g/dL Critically low 14.0-18.0 [facility] Comment on above: Performed By: #### U CLINT, CMP, LIPID, DBIL, PHOS, MG #### [facility] [address] [place] [address] Dr. Brea Causey IG # 0.05 10e3/ul Critically high 0.00-0.[address] [facility] Comment on above: Performed By: #### U CLINT, CMP, LIPID, DBIL, PHOS, MG #### [facility] [address] [place] [address] Dr. Brea Causey IG % 0.9 % Critically high 0.0-0.[address] [facility] Comment on above: Performed By: #### U CLINT, CMP, LIPID, DBIL, PHOS, MG #### [facility] [address] [address] [address] Brea Causey LYMPH # 1.0 103/ul Critically low 1.2-3.8 [facility] Comment on above: Performed By: #### U CLINT, CMP, LIPID, DBIL, PHOS, MG #### [facility] [address] [place] [address] Dr. Brea Causey Lymphocytes/100 WBC (Bld) 16.4 % Critically low 20.5-60.0 [facility] Comment on above: Performed By: #### U CLINT, CMP, LIPID, DBIL, PHOS, MG #### [facility] [address] [place] [address] Dr. Brea Causey MANUAL DIFF REQ NO Normal [facility] Comment on above: Performed By: #### U CLINT, CMP, LIPID, DBIL, PHOS, MG #### [facility] [address] [place] [address] Dr. Brea Causey MCH (RBC) [Entitic mass] 29.0 pg Normal 25.9-34.0 [facility] Comment on above: Performed By: #### U CLINT, CMP, LIPID, DBIL, PHOS, MG #### [facility] [address] [place] [address] Dr. Brea Causey MCHC (RBC) [Mass/Vol] 33.5 g/dL Normal 29.9-35.2 [facility] Comment on above: Performed By: #### U CLINT, CMP, LIPID, DBIL, PHOS, MG #### [facility] [address] [place] [address] Dr. Brea Cauesy MCV (RBC) [Entitic vol] 86.7 fL Normal 80.0-94.0 [facility] Comment on above: Performed By: #### U CLINT, CMP, LIPID, DBIL, PHOS, MG #### [facility] [address] [place] [address] Dr. Brea Causey MONO # 0.7 103/ul Normal 0.3-0.8 [facility] Comment on above: Performed By: #### U CLINT, CMP, LIPID, DBIL, PHOS, MG #### [facility] [address] [place] [address] Dr. Brea Causey Monocytes/100 WBC (Bld) 11.6 % Normal 1.7-12.0 [facility] Comment on above: Performed By: #### U CLINT, CMP, LIPID, DBIL, PHOS, MG #### [facility] [address] [address] [address] Brea Causey NEUT # 4.0 103/ul Normal 1.4-6.5 [facility] Comment on above: Performed By: #### U CLINT, CMP, LIPID, DBIL, PHOS, MG #### [facility] [address] [place] [address] Dr. Brea Causey Neutrophils/100 WBC (Bld) 68.5 % Normal 43.0-75.0 [facility] Comment on above: Performed By: #### U CLINT, CMP, LIPID, DBIL, PHOS, MG #### [facility] [address] [address] [address] Brea Causey Platelet mean volume (Bld) [Entitic vol] 9.2 fL Critically low 9.5-13.5 [facility] Comment on above: Performed By: #### U CLINT, CMP, LIPID, DBIL, PHOS, MG #### [facility] [address] [place] [address] Dr. Brea Causey PLT 231 103/ul Normal 150-450 [facility] Comment on above: Performed By: #### U CLINT, CMP, LIPID, DBIL, PHOS, MG #### [facility] [address] [place] [address] Dr. Brea Causey RBC 4.27 106/ul Critically low 4.70-6.10 [facility] Comment on above: Performed By: #### U CLINT, CMP, LIPID, DBIL, PHOS, MG #### [facility] [address] [place] [address] Dr. Brea Causey WBC 5.9 103/ul Normal 4.0-11.0 [facility] Comment on above: Performed By: #### U CLINT, CMP, LIPID, DBIL, PHOS, MG #### [facility] [address] [place] [address] Dr. Brea Causey LIPID PROFILEon 04-30-2022 CHOL-HDL RATIO NORM SEE BELOW Normal [facility] Comment on above: Result Comment: 3.3 - 4.4 LOW RISK 4.4 - 7.1 AVERAGE RISK 7.1 - 11.0 MODERATE RISK >11.0 HIGH RISK Performed By: #### U CLINT, CMP, LIPID, DBIL, PHOS, MG #### [facility] [address] [address] [address] Brea Causey Cholesterol [Mass/Vol] 78 mg/dL Normal <=200 [facility] Comment on above: Performed By: #### U CLINT, CMP, LIPID, DBIL, PHOS, MG #### [facility] [address] [address] [address] Brea Causey Cholesterol in HDL [Mass/Vol] 41 mg/dL Normal 40-60 [facility] Comment on above: Performed By: #### U CLINT, CMP, LIPID, DBIL, PHOS, MG #### [facility] [address] [address] [address] Brea Causey Cholesterol in LDL [Mass/Vol] 17.8 mg/dL Normal [facility] Comment on above: Performed By: #### U CLINT, CMP, LIPID, DBIL, PHOS, MG #### [facility] [address] [place] [address] Dr. Brea Causey Cholesterol.total/Cho lesterol in HDL [Mass ratio] 1.9 {ratio} Normal [facility] Comment on above: Performed By: #### U CLINT, CMP, LIPID, DBIL, PHOS, MG #### [facility] [address] [address] [address] Brea Causey HDL NORMAL > or = 60 mg/dl - LO W CARDIOVASCULAR RISK <40 mg/dl - HIGH CARDIOVASCULAR RISK Normal [facility] Comment on above: Performed By: #### U CLINT, CMP, LIPID, DBIL, PHOS, MG #### [facility] [address] [address] [address] Brea Causey LDL CALC NORMAL SEE BELOW Normal [facility] Comment on above: Result Comment: <100 mg/dl OPTIMAL 100 - 129 mg/dl NEAR OR ABOVE OPTIMAL 130 - 159 mg/dl BORDERLINE HIGH 160 - 189 mg/dl HIGH >190 mg/dl VERY HIGH Performed By: #### U CLINT, CMP, LIPID, DBIL, PHOS, MG #### [facility] [address] [address] [address] Brea Causey Triglyceride [Mass/Vol] 96 mg/dL Normal <=150 [facility] Comment on above: Performed By: #### U CLINT, CMP, LIPID, DBIL, PHOS, MG #### [facility] [address] [address] [address] Brea Causey VLDL CALC 19.2 mg/dL Normal [facility] Comment on above: Performed By: #### U CLINT, CMP, LIPID, DBIL, PHOS, MG #### [facility] [address] [address] [address] Brea Causey MAGNESIUMon 04-30-2022 Magnesium [Mass/Vol] 1.7 mg/dL Critically low 1.8-2.4 [facility] Comment on above: Performed By: #### U CLINT, CMP, LIPID, DBIL, PHOS, MG #### [facility] [address] [place] [address] Dr. Brea Causey PHOSPHORUSon 04-30-2022 Phosphate [Mass/Vol] 3.6 mg/dL Normal 2.6-4.7 [facility] Comment on above: Performed By: #### U CLINT, CMP, LIPID, DBIL, PHOS, MG #### [facility] [address] [place] [address] Dr. Brea Causey PROF 14(COMP METB)on 022 Albumin [Mass/Vol] 4.0 g/dL Normal 3.4-5.0 [facility] Comment on above: Performed By: #### U CLINT, CMP, LIPID, DBIL, PHOS, MG #### [facility] [address] [place] [address] Dr. Brea Causey Albumin/Globulin [Mass ratio] 1.3 {ratio} Normal [facility] Comment on above: Performed By: #### U CLINT, CMP, LIPID, DBIL, PHOS, MG #### [facility] [address] [place] [address] Dr. Brea Causey ALP [Catalytic activity/Vol] 196 U/L Critically high 46-116 [facility] Comment on above: Performed By: #### U CLINT, CMP, LIPID, DBIL, PHOS, MG #### [facility] [address] [address] [address] Brea Causey ALT [Catalytic activity/Vol] 21 U/L Normal 16-63 [facility] Comment on above: Performed By: #### U CLINT, CMP, LIPID, DBIL, PHOS, MG #### [facility] [address] [address] [address] Brea Causey Anion gap [Moles/Vol] 10.5 mmol/L Normal [facility] Comment on above: Performed By: #### U CLINT, CMP, LIPID, DBIL, PHOS, MG #### [facility] [address] [address] [address] Brea Causey AST [Catalytic activity/Vol] 16 U/L Normal 15-37 [facility] Comment on above: Performed By: #### U CLINT, CMP, LIPID, DBIL, PHOS, MG #### [facility] [address] [place] [address] Dr. Brea Causey Bilirubin [Mass/Vol] 0.3 mg/dL Normal 0.2-1.0 [facility] Comment on above: Performed By: #### U CLINT, CMP, LIPID, DBIL, PHOS, MG #### [facility] [address] [place] [address] Dr. Brea Causey Calcium [Mass/Vol] 8.6 mg/dL Normal 8.5-10.1 [facility] Comment on above: Performed By: #### U CLINT, CMP, LIPID, DBIL, PHOS, MG #### [facility] [address] [address] [address] Brea Causey Chloride [Moles/Vol] 95 mmol/L Critically low 98-107 [facility] Comment on above: Performed By: #### U CLINT, CMP, LIPID, DBIL, PHOS, MG #### [facility] [address] [place] [address] Dr. Brea Causey CO2 [Moles/Vol] 30.9 mmol/L Normal 21.0-32.0 [facility] Comment on above: Performed By: #### U CLINT, CMP, LIPID, DBIL, PHOS, MG #### [facility] [address] [place] [address] Dr. Brea Causey Creatinine [Mass/Vol] 1.00 mg/dL Normal 0.70-1.30 [facility] Comment on above: Performed By: #### U CLINT, CMP, LIPID, DBIL, PHOS, MG #### [facility] [address] [place] [address] Dr. Brea Causey EGFR-AF MALTESE >60 Normal >=60 [facility] Comment on above: Performed By: #### U CLINT, CMP, LIPID, DBIL, PHOS, MG #### [facility] [address] [place] [address] Dr. Brea Causey EGFR-NON AF MALTESE >60 Normal >=60 [facility] Comment on above: Performed By: #### U CLINT, CMP, LIPID, DBIL, PHOS, MG #### [facility] [address] [place] [address] Dr. Brea Causey Globulin (S) [Mass/Vol] 3.2 g/dL Normal [facility] Comment on above: Performed By: #### U CLINT, CMP, LIPID, DBIL, PHOS, MG #### [facility] [address] [place] [address] Dr. Brea Causey Glucose [Mass/Vol] 160 mg/dL Critically high 74-106 [facility] Comment on above: Performed By: #### U CLINT, CMP, LIPID, DBIL, PHOS, MG #### [facility] [address] [place] [address] Dr. Brea Causey Potassium [Moles/Vol] 5.4 mmol/L Critically high 3.5-5.1 [facility] Comment on above: Performed By: #### U CLINT, CMP, LIPID, DBIL, PHOS, MG #### [facility] [address] [place] [address] Dr. Brea Causey Protein [Mass/Vol] 7.2 g/dL Normal 6.4-8.2 [facility] Comment on above: Performed By: #### U CLINT, CMP, LIPID, DBIL, PHOS, MG #### [facility] [address] [place] [address] Dr. Brea Causey Sodium [Moles/Vol] 131 mmol/L Critically low 136-145 [facility] Comment on above: Performed By: #### U CLINT, CMP, LIPID, DBIL, PHOS, MG #### [facility] [address] [address] [address] Brea Causey Urea nitrogen [Mass/Vol] 11.0 mg/dL Normal 7.0-18.0 [facility] Comment on above: Performed By: #### U CLINT, CMP, LIPID, DBIL, PHOS, MG #### [facility] [address] [place] [address] Dr. Brea Causey Urea nitrogen/Creatinine [Mass ratio] 11.0 mg/mg Normal [facility] Comment on above: Performed By: #### U CLINT, CMP, LIPID, DBIL, PHOS, MG #### [facility] [address] [place] [address] Dr. Brea Cuasey URIC ACID SERUMon 04-30-2022 Urate [Mass/Vol] 5.9 mg/dL Normal 3.5-7.2 [facility] Comment on above: Performed By: #### U CLINT, CMP, LIPID, DBIL, PHOS, MG #### [facility] [address] [place] [address] Dr. Brea Causey FK506 (TACROLIMUS) WHOLE BLO ODon 04-06-2022 Tacrolimus (FK506), Blood 3.0 ng/mL Normal 2.0-20.0 [facility] Comment on above: Result Comment: Trou gh (immediately following transplant) 15.0 . Trough (steady state, 2 weeks or more after transplant): 3.0 - 8.0 . Performed by LC-MS/MS technology. Performed By: #### U CLINT, CMP, LIPID, DBIL, PHOS, MG #### [facility] [address] [place] [address] Dr. Brea Causey BILIRUBIN CONJUGATED (DIRECT )on 04-03-2022 BILI, CONJUGATED 0.1 mg/dL Normal 0.0-0.2 [facility] Comment on above: Performed By: #### U CLINT, CMP, LIPID, DBIL, PHOS, MG #### [facility] [address] [place] [address] Dr. Brea Causey CBC AUTO DIFFon 04-03-2022 BASO # 0.0 103/ul Normal 0.0-0.1 [facility] Comment on above: Performed By: #### U CLINT, CMP, LIPID, DBIL, PHOS, MG #### [facility] [address] [address] [address] Brea Causey Basophils/100 WBC (Bld) 0.5 % Normal 0.2-2.0 [facility] Comment on above: Performed By: #### U CLINT, CMP, LIPID, DBIL, PHOS, MG #### [facility] [address] [place] [address] Dr. Brea Causey EO # 0.1 103/ul Normal 0.0-0.7 [facility] Comment on above: Performed By: #### U CLINT, CMP, LIPID, DBIL, PHOS, MG #### [facility] [address] [place] [address] Dr. Brea Causey Eosinophils/100 WBC (Bld) 2.5 % Normal 0.9-7.0 [facility] Comment on above: Performed By: #### U CLINT, CMP, LIPID, DBIL, PHOS, MG #### [facility] [address] [place] [address] Dr. Brea Causey Erythrocyte distribution width (RBC) [Ratio] 13.3 % Normal 11.0-15.0 [facility] Comment on above: Performed By: #### U CLINT, CMP, LIPID, DBIL, PHOS, MG #### [facility] [address] [place] [address] Dr. Brea Causey Hematocrit (Bld) [Volume fraction] 36.4 % Critically low 42.0-54.0 [facility] Comment on above: Performed By: #### U CLINT, CMP, LIPID, DBIL, PHOS, MG #### [facility] [address] [address] [address] Brea Causey Hemoglobin (Bld) [Mass/Vol] 12.3 g/dL Critically low 14.0-18.0 [facility] Comment on above: Performed By: #### U CLINT, CMP, LIPID, DBIL, PHOS, MG #### [facility] [address] [place] [address] Dr. Brea Causey IG # 0.03 10e3/ul Normal 0.00-0.03 [facility] Comment on above: Performed By: #### U CLINT, CMP, LIPID, DBIL, PHOS, MG #### [facility] [address] [place] [address] Dr. Brea Causey IG % 0.5 % Normal 0.0-0.5 [facility] Comment on above: Performed By: #### U CLINT, CMP, LIPID, DBIL, PHOS, MG #### [facility] [address] [place] [address] Dr. Brea Causey LYMPH # 0.9 103/ul Critically low 1.2-3.8 [facility] Comment on above: Performed By: #### U CLINT, CMP, LIPID, DBIL, PHOS, MG #### [facility] [address] [place] [address] Dr. Brea Causey Lymphocytes/100 WBC (Bld) 16.9 % Critically low 20.5-60.0 [facility] Comment on above: Performed By: #### U CLINT, CMP, LIPID, DBIL, PHOS, MG #### [facility] [address] [place] [address] Dr. Brea Causey MANUAL DIFF REQ NO Normal [facility] Comment on above: Performed By: #### U CLINT, CMP, LIPID, DBIL, PHOS, MG #### [facility] [address] [place] [address] Dr. Brea Causey MCH (RBC) [Entitic mass] 29.3 pg Normal 25.9-34.0 [facility] Comment on above: Performed By: #### U CLINT, CMP, LIPID, DBIL, PHOS, MG #### [facility] [address] [address] [address] Brea Causey MCHC (RBC) [Mass/Vol] 33.8 g/dL Normal 29.9-35.2 [facility] Comment on above: Performed By: #### U CLINT, CMP, LIPID, DBIL, PHOS, MG #### [facility] [address] [place] [address] Dr. Brea Causey MCV (RBC) [Entitic vol] 86.7 fL Normal 80.0-94.0 [facility] Comment on above: Performed By: #### U CLINT, CMP, LIPID, DBIL, PHOS, MG #### [facility] [address] [place] [address] Dr. Brea Causey MONO # 0.6 103/ul Normal 0.3-0.8 [facility] Comment on above: Performed By: #### U CLINT, CMP, LIPID, DBIL, PHOS, MG #### [facility] [address] [place] [address] Dr. Brea Causey Monocytes/100 WBC (Bld) 10.1 % Normal 1.7-12.0 [facility] Comment on above: Performed By: #### U CLINT, CMP, LIPID, DBIL, PHOS, MG #### [facility] [address] [place] [address] Dr. Brea Causey NEUT # 3.9 103/ul Normal 1.4-6.5 [facility] Comment on above: Performed By: #### U CLINT, CMP, LIPID, DBIL, PHOS, MG #### [facility] [address] [place] [address] Dr. Brea Causey Neutrophils/100 WBC (Bld) 69.5 % Normal 43.0-75.0 [facility] Comment on above: Performed By: #### U CLINT, CMP, LIPID, DBIL, PHOS, MG #### [facility] [address] [place] [address] Dr. Brea Causey Platelet mean volume (Bld) [Entitic vol] 9.2 fL Critically low 9.5-13.5 [facility] Comment on above: Performed By: #### U CLINT, CMP, LIPID, DBIL, PHOS, MG #### [facility] [address] [address] [address] Brea Causey PLT 228 103/ul Normal 150-450 [facility] Comment on above: Performed By: #### U CLINT, CMP, LIPID, DBIL, PHOS, MG #### [facility] [address] [address] [address] Brea Causey RBC 4.20 106/ul Critically low 4.70-6.10 [facility] Comment on above: Performed By: #### U CLINT, CMP, LIPID, DBIL, PHOS, MG #### [facility] [address] [address] [address] Brea Causey WBC 5.6 103/ul Normal 4.0-11.0 [facility] Comment on above: Performed By: #### U CLINT, CMP, LIPID, DBIL, PHOS, MG #### [facility] [address] [address] [address] Brea Causey LIPID PROFILEon 04-03-2022 CHOL-HDL RATIO NORM SEE BELOW Normal [facility] Comment on above: Result Comment: 3.3 - 4.4 LOW RISK 4.4 - 7.1 AVERAGE RISK 7.1 - 11.0 MODERATE RISK >11.0 HIGH RISK Performed By: #### U CLINT, CMP, LIPID, DBIL, PHOS, MG #### [facility] [address] [address] [address] Brea Causey Cholesterol [Mass/Vol] 84 mg/dL Normal <=200 [facility] Comment on above: Performed By: #### U CLINT, CMP, LIPID, DBIL, PHOS, MG #### [facility] [address] [address] [address] Brea Causey Cholesterol in HDL [Mass/Vol] 45 mg/dL Normal 40-60 [facility] Comment on above: Performed By: #### U CLINT, CMP, LIPID, DBIL, PHOS, MG #### [facility] [address] [address] [address] Brea Causey Cholesterol in LDL [Mass/Vol] 22.8 mg/dL Normal [facility] Comment on above: Performed By: #### U CLINT, CMP, LIPID, DBIL, PHOS, MG #### [facility] [address] [address] [address] Brea Causey Cholesterol.total/Cho lesterol in HDL [Mass ratio] 1.9 {ratio} Normal [facility] Comment on above: Performed By: #### U CLINT, CMP, LIPID, DBIL, PHOS, MG #### [facility] [address] [address] [address] Brea Causey HDL NORMAL > or = 60 mg/dl - LO W CARDIOVASCULAR RISK <40 mg/dl - HIGH CARDIOVASCULAR RISK Normal [facility] Comment on above: Performed By: #### U CLINT, CMP, LIPID, DBIL, PHOS, MG #### [facility] [address] [address] [address] Brea Causey LDL CALC NORMAL SEE BELOW Normal [facility] Comment on above: Result Comment: <100 mg/dl OPTIMAL 100 - 129 mg/dl NEAR OR ABOVE OPTIMAL 130 - 159 mg/dl BORDERLINE HIGH 160 - 189 mg/dl HIGH >190 mg/dl VERY HIGH Performed By: #### U CLINT, CMP, LIPID, DBIL, PHOS, MG #### [facility] [address] [address] [address] Brea Causey Triglyceride [Mass/Vol] 81 mg/dL Normal <=150 [facility] Comment on above: Performed By: #### U CLINT, CMP, LIPID, DBIL, PHOS, MG #### [facility] [address] [address] [address] Brea Causey VLDL CALC 16.2 mg/dL Normal [facility] Comment on above: Performed By: #### U CLINT, CMP, LIPID, DBIL, PHOS, MG #### [facility] [address] [address] [address] Brea Causey MAGNESIUMon 11-23-2022 Magnesium [Mass/Vol] 1.6 mg/dL Critically low 1.8-2.4 [facility] Comment on above: Performed By: #### U CLINT, CMP, LIPID, DBIL, PHOS, MG #### [facility] [address] [place] [address] Dr. Brea Causey PHOSPHORUSon 04-03-2022 Phosphate [Mass/Vol] 3.9 mg/dL Normal 2.6-4.7 [facility] Comment on above: Performed By: #### U CLINT, CMP, LIPID, DBIL, PHOS, MG #### [facility] [address] [place] [address] Dr. Brea Causey PROF 14(COMP METB)on Albumin [Mass/Vol] 4.0 g/dL Normal 3.4-5.0 [facility] Comment on above: Performed By: #### U CLINT, CMP, LIPID, DBIL, PHOS, MG #### [facility] [address] [place] [address] Dr. Brea Causey Albumin/Globulin [Mass ratio] 1.2 {ratio} Normal [facility] Comment on above: Performed By: #### U CLINT, CMP, LIPID, DBIL, PHOS, MG #### [facility] [address] [place] [address] Dr. Brea Causey ALP [Catalytic activity/Vol] 196 U/L Critically high 46-116 [facility] Comment on above: Performed By: #### U CLINT, CMP, LIPID, DBIL, PHOS, MG #### [facility] [address] [place] [address] Dr. Brea Causey ALT [Catalytic activity/Vol] 19 U/L Normal 16-63 [facility] Comment on above: Performed By: #### U CLINT, CMP, LIPID, DBIL, PHOS, MG #### [facility] [address] [place] [address] Dr. Brea Causey Anion gap [Moles/Vol] 10.2 mmol/L Normal [facility] Comment on above: Performed By: #### U CLINT, CMP, LIPID, DBIL, PHOS, MG #### [facility] [address] [address] [address] Brea Causey AST [Catalytic activity/Vol] 15 U/L Normal 15-37 [facility] Comment on above: Performed By: #### U CLINT, CMP, LIPID, DBIL, PHOS, MG #### [facility] [address] [address] [address] Brea Causey Bilirubin [Mass/Vol] 0.3 mg/dL Normal 0.2-1.0 [facility] Comment on above: Performed By: #### U CLINT, CMP, LIPID, DBIL, PHOS, MG #### [facility] [address] [address] [address] Brea Causey Calcium [Mass/Vol] 8.2 mg/dL Critically low 8.5-10.1 [facility] Comment on above: Performed By: #### U CLINT, CMP, LIPID, DBIL, PHOS, MG #### [facility] [address] [address] [address] Brea Causey Chloride [Moles/Vol] 97 mmol/L Critically low 98-107 [facility] Comment on above: Performed By: #### U CLINT, CMP, LIPID, DBIL, PHOS, MG #### [facility] [address] [place] [address] Dr. Brea Causey CO2 [Moles/Vol] 28.2 mmol/L Normal 21.0-32.0 [facility] Comment on above: Performed By: #### U CLINT, CMP, LIPID, DBIL, PHOS, MG #### [facility] [address] [place] [address] Dr. Brea Causey Creatinine [Mass/Vol] 1.00 mg/dL Normal 0.70-1.30 [facility] Comment on above: Performed By: #### U CLINT, CMP, LIPID, DBIL, PHOS, MG #### [facility] [address] [place] [address] Dr. Brea Causey EGFR-AF MALTESE >60 Normal >=60 [facility] Comment on above: Performed By: #### U CLINT, CMP, LIPID, DBIL, PHOS, MG #### [facility] [address] [address] [address] Brea Causey EGFR-NON AF MALTESE >60 Normal >=60 [facility] Comment on above: Performed By: #### U CLINT, CMP, LIPID, DBIL, PHOS, MG #### [facility] [address] [address] [address] Brea Causey Globulin (S) [Mass/Vol] 3.3 g/dL Normal [facility] Comment on above: Performed By: #### U CLINT, CMP, LIPID, DBIL, PHOS, MG #### [facility] [address] [address] [address] Brea Causey Glucose [Mass/Vol] 164 mg/dL Critically high 74-106 [facility] Comment on above: Performed By: #### U CLINT, CMP, LIPID, DBIL, PHOS, MG #### [facility] [address] [place] [address] Dr. Brea Causey Potassium [Moles/Vol] 4.4 mmol/L Normal 3.5-5.1 [facility] Comment on above: Performed By: #### U CLINT, CMP, LIPID, DBIL, PHOS, MG #### [facility] [address] [place] [address] Dr. Brea Causey Protein [Mass/Vol] 7.3 g/dL Normal 6.4-8.2 [facility] Comment on above: Performed By: #### U CLINT, CMP, LIPID, DBIL, PHOS, MG #### [facility] [address] [place] [address] Dr. Brea Causey Sodium [Moles/Vol] 131 mmol/L Critically low 136-145 [facility] Comment on above: Performed By: #### U CLINT, CMP, LIPID, DBIL, PHOS, MG #### [facility] [address] [place] [address] Dr. Brea Causey Urea nitrogen [Mass/Vol] 13.0 mg/dL Normal 7.0-18.0 [facility] Comment on above: Performed By: #### U CLINT, CMP, LIPID, DBIL, PHOS, MG #### [facility] [address] [address] [address] Brea Causey Urea nitrogen/Creatinine [Mass ratio] 13.0 mg/mg Normal [facility] Comment on above: Performed By: #### U CLINT, CMP, LIPID, DBIL, PHOS, MG #### [facility] [address] [address] [address] Brea Causey URIC ACID SERUMon 04-03-2022 Urate [Mass/Vol] 6.1 mg/dL Normal 3.5-7.2 [facility] Comment on above: Performed By: #### U CLINT, CMP, LIPID, DBIL, PHOS, MG #### [facility] [address] [place] [address] Dr. Brea Causey TESTOSTERONE, FREE,DIRECT, T OTALon 03-13-2022 Free Testosterone(Direct) 6.9 pg/mL Normal 6.6-18.1 [facility] Comment on above: Result Comment: Perf ormed at: BN Performed By: #### T ESTFRD #### [facility] [address] [place] [address] Dr. Brea Causey Testosterone [Mass/Vol] 428 ng/dL Normal 264-916 [facility] Comment on above: Result Comment: Adul t male reference interval is based on a population of healthy nonobese males (BMI <30) between 19 and 39 years old. Steven, et.al. JCEM 2017,102;[id number]. PMID: [id number]. Performed at: CB Performed By: #### T ESTFRD #### [facility] [address] [place] [address] Dr. Brea Causey BK VIRUS PCR QUANTon 022 BKV DNA QUANT PCR PLASMA Negative Normal Negative [facility] Comment on above: Result Comment: No B K DNA detected. . The linear range of the assay is 22 - 100,000,000 IU/mL. Performed By: #### B KVIRUS #### [facility] [address] [place] [address] Dr. Brea Causey Log10 BKV DNA Plasma Normal [facility] [facility] Comment on above: Performed By: #### B KVIRUS #### [facility] [address] [place] [address] Dr. Brea Causey FK506 (TACROLIMUS) WHOLE BLO ODon 03-11-2022 Tacrolimus (FK506), Blood 4.7 ng/mL Normal 2.0-20.0 [facility] Comment on above: Result Comment: Trou gh (immediately following transplant) 15.0 . Trough (steady state, 2 weeks or more after transplant): 3.0 - 8.0 . Performed by LC-MS/MS technology. Performed By: #### C BC #### [facility] [address] [place] [address] Dr. Brea Causey BILIRUBIN CONJUGATED (DIRECT )on 03-08-2022 BILI, CONJUGATED 0.1 mg/dL Normal 0.0-0.2 [facility] Comment on above: Performed By: #### U CLINT, CMP, LIPID, DBIL, PHOS, MG #### [facility] [address] [place] [address] Dr. Brea Causey CBC AUTO DIFFon 03-08-2022 BASO # 0.0 103/ul Normal 0.0-0.1 [facility] Comment on above: Performed By: #### U CLINT, CMP, LIPID, DBIL, PHOS, MG #### [facility] [address] [place] [address] Dr. Brea Causey Basophils/100 WBC (Bld) 0.7 % Normal 0.2-2.0 [facility] Comment on above: Performed By: #### U CLINT, CMP, LIPID, DBIL, PHOS, MG #### [facility] [address] [place] [address] Dr. Brea Causey EO # 0.2 103/ul Normal 0.0-0.7 [facility] Comment on above: Performed By: #### U CLINT, CMP, LIPID, DBIL, PHOS, MG #### [facility] [address] [place] [address] Dr. Brea Causey Eosinophils/100 WBC (Bld) 3.1 % Normal 0.9-7.0 [facility] Comment on above: Performed By: #### U CLINT, CMP, LIPID, DBIL, PHOS, MG #### [facility] [address] [place] [address] Dr. Brea Causey Erythrocyte distribution width (RBC) [Ratio] 13.3 % Normal 11.0-15.0 [facility] Comment on above: Performed By: #### U CLINT, CMP, LIPID, DBIL, PHOS, MG #### [facility] [address] [place] [address] Dr. Brea Causey Hematocrit (Bld) [Volume fraction] 35.7 % Critically low 42.0-54.0 [facility] Comment on above: Performed By: #### U CLINT, CMP, LIPID, DBIL, PHOS, MG #### [facility] [address] [place] [address] Dr. Brea Causey Hemoglobin (Bld) [Mass/Vol] 12.0 g/dL Critically low 14.0-18.0 [facility] Comment on above: Performed By: #### U CLINT, CMP, LIPID, DBIL, PHOS, MG #### [facility] [address] [place] [address] Dr. Brea Causey IG # 0.06 10e3/ul Critically high 0.00-0.[address] [facility] Comment on above: Performed By: #### U CLINT, CMP, LIPID, DBIL, PHOS, MG #### [facility] [address] [place] [address] Dr. Brea Causey IG % 1.0 % Critically high 0.0-0.5 [facility] Comment on above: Performed By: #### U CLINT, CMP, LIPID, DBIL, PHOS, MG #### [facility] [address] [place] [address] Dr. Brea Causey LYMPH # 0.8 103/ul Critically low 1.2-3.8 [facility] Comment on above: Performed By: #### U CLINT, CMP, LIPID, DBIL, PHOS, MG #### [facility] [address] [place], [place] [id number] Dr. Brea Causey Lymphocytes/100 WBC (Bld) 12.9 % Critically low 20.5-60.0 [facility] Comment on above: Performed By: #### U CLINT, CMP, LIPID, DBIL, PHOS, MG #### [facility] [address] [place] [address] Dr. Brea Casuey MANUAL DIFF REQ NO Normal [facility] Comment on above: Performed By: #### U CLINT, CMP, LIPID, DBIL, PHOS, MG #### [facility] [address] [place] [address] Dr. Brea Causey MCH (RBC) [Entitic mass] 29.5 pg Normal 25.9-34.0 [facility] Comment on above: Performed By: #### U CLINT, CMP, LIPID, DBIL, PHOS, MG #### [facility] [address] [place] [address] Dr. Brea Causey MCHC (RBC) [Mass/Vol] 33.6 g/dL Normal 29.9-35.2 [facility] Comment on above: Performed By: #### U CLINT, CMP, LIPID, DBIL, PHOS, MG #### [facility] [address] [place] [address] Dr. Brea Causey MCV (RBC) [Entitic vol] 87.7 fL Normal 80.0-94.0 [facility] Comment on above: Performed By: #### U CLINT, CMP, LIPID, DBIL, PHOS, MG #### [facility] [address] [place] [address] Dr. Brea Cuasey MONO # 0.6 103/ul Normal 0.3-0.8 [facility] Comment on above: Performed By: #### U CLINT, CMP, LIPID, DBIL, PHOS, MG #### [facility] [address] [place] [address] Dr. Brea Causey Monocytes/100 WBC (Bld) 9.8 % Normal 1.7-12.0 [facility] Comment on above: Performed By: #### U CLINT, CMP, LIPID, DBIL, PHOS, MG #### [facility] [address] [address] [address] Brea Causey NEUT # 4.4 103/ul Normal 1.4-6.5 [facility] Comment on above: Performed By: #### U CLINT, CMP, LIPID, DBIL, PHOS, MG #### [facility] [address] [address] [address] Brea Causey Neutrophils/100 WBC (Bld) 72.5 % Normal 43.0-75.0 [facility] Comment on above: Performed By: #### U CLINT, CMP, LIPID, DBIL, PHOS, MG #### [facility] [address] [address] [address] Brea Causey Platelet mean volume (Bld) [Entitic vol] 9.6 fL Normal 9.5-13.5 [facility] Comment on above: Performed By: #### U CLINT, CMP, LIPID, DBIL, PHOS, MG #### [facility] [address] [address] [address] Brea Causey PLT 265 103/ul Normal 150-450 [facility] Comment on above: Performed By: #### U CLINT, CMP, LIPID, DBIL, PHOS, MG #### [facility] [address] [address] [address] Brea Causey RBC 4.07 106/ul Critically low 4.70-6.[address] [facility] Comment on above: Performed By: #### U CLINT, CMP, LIPID, DBIL, PHOS, MG #### [facility] [address] [address] [address] Brea Causey WBC 6.0 103/ul Normal 4.0-11.0 [facility] Comment on above: Performed By: #### U CLINT, CMP, LIPID, DBIL, PHOS, MG #### [facility] [address] [place] [address] Dr. Brea aCusey GLYCOHEMOGLOBIN A1Con 2021 ADA RECOMMENDATION SEE BELOW Normal [facility] Comment on above: Result Comment: ADA RECOMMENDED LIMIT 4.0 - 6.0 ADA THERAPEUTIC TARGET < 7.0 ACTION SUGGESTED > 7.0 Performed By: #### U CLINT, CMP, LIPID, DBIL, PHOS, MG #### [facility] [address] [place] [address] Dr. Brea Causey Glucose [Mass/Vol] 169 mg/dL Normal [facility] Comment on above: Performed By: #### U CLINT, CMP, LIPID, DBIL, PHOS, MG #### [facility] [address] [place] [address] Dr. Brea Causey HbA1c (Bld) [Mass fraction] 7.5 % Critically high 4.5-6.2 [facility] Comment on above: Performed By: #### U CLINT, CMP, LIPID, DBIL, PHOS, MG #### [facility] [address] [place] [address] Dr. Brea Causey LIPID PROFILEon 03-08-2022 CHOL-HDL RATIO NORM SEE BELOW Normal [facility] Comment on above: Result Comment: 3.3 - 4.4 LOW RISK 4.4 - 7.1 AVERAGE RISK 7.1 - 11.0 MODERATE RISK >11.0 HIGH RISK Performed By: #### U CLINT, CMP, LIPID, DBIL, PHOS, MG #### [facility] [address] [place] [address] Dr. Brea Causey Cholesterol [Mass/Vol] 77 mg/dL Normal <=200 [facility] Comment on above: Performed By: #### U CLINT, CMP, LIPID, DBIL, PHOS, MG #### [facility] [address] [place] [address] Dr. Brea Causey Cholesterol in HDL [Mass/Vol] 49 mg/dL Normal 40-60 [facility] Comment on above: Performed By: #### U CLINT, CMP, LIPID, DBIL, PHOS, MG #### [facility] [address] [place] [address] Dr. Brea Causey Cholesterol in LDL [Mass/Vol] 20.4 mg/dL Normal [facility] Comment on above: Performed By: #### U CLINT, CMP, LIPID, DBIL, PHOS, MG #### [facility] [address] [address] [address] Brea Causey Cholesterol.total/Cho lesterol in HDL [Mass ratio] 1.6 {ratio} Normal [facility] Comment on above: Performed By: #### U CLINT, CMP, LIPID, DBIL, PHOS, MG #### [facility] [address] [address] [address] Brea Causey HDL NORMAL > or = 60 mg/dl - LO W CARDIOVASCULAR RISK <40 mg/dl - HIGH CARDIOVASCULAR RISK Normal [facility] Comment on above: Performed By: #### U CLINT, CMP, LIPID, DBIL, PHOS, MG #### [facility] [address] [address] [address] Brea Causey LDL CALC NORMAL SEE BELOW Normal [facility] Comment on above: Result Comment: <100 mg/dl OPTIMAL 100 - 129 mg/dl NEAR OR ABOVE OPTIMAL 130 - 159 mg/dl BORDERLINE HIGH 160 - 189 mg/dl HIGH >190 mg/dl VERY HIGH Performed By: #### U CLINT, CMP, LIPID, DBIL, PHOS, MG #### [facility] [address] [address] [address] Brea Causey Triglyceride [Mass/Vol] 38 mg/dL Normal <=150 [facility] Comment on above: Performed By: #### U CLINT, CMP, LIPID, DBIL, PHOS, MG #### [facility] [address] [address] [address] Brea Causey VLDL CALC 7.6 mg/dL Normal [facility] Comment on above: Performed By: #### U CLINT, CMP, LIPID, DBIL, PHOS, MG #### [facility] [address] [address] [address] Brea Causey MAGNESIUMon 03-08-2022 Magnesium [Mass/Vol] 1.5 mg/dL Critically low 1.8-2.4 [facility] Comment on above: Performed By: #### U CLINT, CMP, LIPID, DBIL, PHOS, MG #### [facility] [address] [address] [address] Brea Causey PHOSPHORUSon 03-08-2022 Phosphate [Mass/Vol] 3.6 mg/dL Normal 2.6-4.7 [facility] Comment on above: Performed By: #### U CLINT, CMP, LIPID, DBIL, PHOS, MG #### [facility] [address] [place] [address] Dr. Brea Causey PROF 14(COMP METB)on Albumin [Mass/Vol] 4.0 g/dL Normal 3.4-5.0 [facility] Comment on above: Performed By: #### U CLINT, CMP, LIPID, DBIL, PHOS, MG #### [facility] [address] [place] [address] Dr. Brea Causey Albumin/Globulin [Mass ratio] 1.2 {ratio} Normal [facility] Comment on above: Performed By: #### U CLINT, CMP, LIPID, DBIL, PHOS, MG #### [facility] [address] [place] [address] Dr. Brea Causey ALP [Catalytic activity/Vol] 176 U/L Critically high 46-116 [facility] Comment on above: Performed By: #### U CLINT, CMP, LIPID, DBIL, PHOS, MG #### [facility] [address] [place] [address] Dr. Brea Causey ALT [Catalytic activity/Vol] 21 U/L Normal 16-63 [facility] Comment on above: Performed By: #### U CLINT, CMP, LIPID, DBIL, PHOS, MG #### [facility] [address] [place] [address] Dr. Brea Causey Anion gap [Moles/Vol] 12.0 mmol/L Normal [facility] Comment on above: Performed By: #### U CLINT, CMP, LIPID, DBIL, PHOS, MG #### [facility] [address] [place] [address] Dr. Brea Causey AST [Catalytic activity/Vol] 13 U/L Critically low 15-37 [facility] Comment on above: Performed By: #### U CLINT, CMP, LIPID, DBIL, PHOS, MG #### [facility] [address] [address] [address] Brea Causey Bilirubin [Mass/Vol] 0.3 mg/dL Normal 0.2-1.0 [facility] Comment on above: Performed By: #### U CLINT, CMP, LIPID, DBIL, PHOS, MG #### [facility] [address] [address] [address] Brea Causey Calcium [Mass/Vol] 7.9 mg/dL Critically low 8.5-10.1 [facility] Comment on above: Performed By: #### U CLINT, CMP, LIPID, DBIL, PHOS, MG #### [facility] [address] [address] [address] Brea Causey Chloride [Moles/Vol] 100 mmol/L Normal 98-107 [facility] Comment on above: Performed By: #### U CLINT, CMP, LIPID, DBIL, PHOS, MG #### [facility] [address] [place] [address] Dr. Brea Causey CO2 [Moles/Vol] 27.3 mmol/L Normal 21.0-32.0 [facility] Comment on above: Performed By: #### U CLINT, CMP, LIPID, DBIL, PHOS, MG #### [facility] [address] [place] [address] Dr. Brea Causey Creatinine [Mass/Vol] 1.00 mg/dL Normal 0.70-1.30 [facility] Comment on above: Performed By: #### U CLINT, CMP, LIPID, DBIL, PHOS, MG #### [facility] [address] [place] [address] Dr. Brea Causey EGFR-AF MALTESE >60 Normal >=60 [facility] Comment on above: Performed By: #### U CLINT, CMP, LIPID, DBIL, PHOS, MG #### [facility] [address] [place] [address] Dr. Brea Causey EGFR-NON AF MALTESE >60 Normal >=60 [facility] Comment on above: Performed By: #### U CLINT, CMP, LIPID, DBIL, PHOS, MG #### [facility] [address] [place] [address] Dr. Brea Causey Globulin (S) [Mass/Vol] 3.3 g/dL Normal [facility] Comment on above: Performed By: #### U CLINT, CMP, LIPID, DBIL, PHOS, MG #### [facility] [address] [place] [address] Dr. Brea Causey Glucose [Mass/Vol] 155 mg/dL Critically high 74-106 [facility] Comment on above: Performed By: #### U CLINT, CMP, LIPID, DBIL, PHOS, MG #### [facility] [address] [place] [address] Dr. Brea Causey Potassium [Moles/Vol] 4.3 mmol/L Normal 3.5-5.1 [facility] Comment on above: Performed By: #### U CLINT, CMP, LIPID, DBIL, PHOS, MG #### [facility] [address] [place] [address] Dr. Brea Causey Protein [Mass/Vol] 7.3 g/dL Normal 6.4-8.2 [facility] Comment on above: Performed By: #### U CLINT, CMP, LIPID, DBIL, PHOS, MG #### [facility] [address] [place] [address] Dr. Brea Causey Sodium [Moles/Vol] 135 mmol/L Critically low 136-145 [facility] Comment on above: Performed By: #### U CLINT, CMP, LIPID, DBIL, PHOS, MG #### [facility] [address] [place] [address] Dr. Brea Causey Urea nitrogen [Mass/Vol] 13.0 mg/dL Normal 7.0-18.0 [facility] Comment on above: Performed By: #### U CLINT, CMP, LIPID, DBIL, PHOS, MG #### [facility] [address] [place] [address] Dr. Brea Causey Urea nitrogen/Creatinine [Mass ratio] 13.0 mg/mg Normal [facility] Comment on above: Performed By: #### U CLINT, CMP, LIPID, DBIL, PHOS, MG #### [facility] [address] [place] [address] Dr. Brea Causey URIC ACID SERUMon 03-08-2022 Urate [Mass/Vol] 7.3 mg/dL Critically high 3.5-7.2 [facility] Comment on above: Performed By: #### U CLINT, CMP, LIPID, DBIL, PHOS, MG #### [facility] [address] [address] [address] Brea Snyder 03-05-2022 L - -------- Specimen: [id number] Received: 03/05/22 Status: CHERI Irene Num: [id number] Spec Type: Surgical Subm Dr: Tj Wells MD Tissues: A Colon Biopsy (COLON BX) B Colon Biopsy (DIVERTICULAR COLITIS) Procedures: HE Stain/4, Gross/Micro L4/2 -------- Age/ Patient Sex Location Account Attending Physician -------- Roger Suarez/Naomi [id number] Tj Wells MD -------- SPEC NUM: [id number] RECD: 03/05/22 STATUS: CHERI FAIR NUM: [id number] ESTEFANI: 03/05/22 DR: Tj Wells MD ENTERED: 03/05/22 [facility] DR: SPEC TYPE: Surgical DEPT: S ORDERED: [...] in one cassette labeled B1. -------- Specimen: [id number] Received: 03/05/22 Status: CHERI Fair Num: [id number] Spec Type: Surgical Subm Dr: Tj Wells MD Tissues: A Colon Biopsy (COLON BX) B Colon Biopsy (DIVERTICULAR COLITIS) Procedures: HE Stain/4, Gross/Micro L4/2 -------- Patient: Roger Suarez [id number] (Continued) -------- Specimen: [id number] Received: 03/05/22 (Continued) Signed (signature on file) Kalpana Shaw MD 03/07/22 1025 -------- Specimen: [id number] Received: 03/05/22 Status: CHERI Fair Num: [id number] Spec Type: Surgical Subm Dr: Tj Wells MD Tissues: A Colon Biopsy (COLON BX) B Colon Biopsy (DIVERTICULAR COLITIS) Procedures: HE Stain/4, Gross/Micro L4/2 -------- Patient: Roger Suarez [id number] (Continued) -------- Specimen: [id number] Received: 03/05/22 (Continued) Microscopic Description A. Two glass slides with H E stained material have been examined. The microscopic findings support the above pathologic diagnosis. B. Two glass slides with H E stained material have been examined. The microscopic findings support the above pathologic diagnosis. CPT Codes 37004?2 -------- -------- Specimen: [id number] Received: 03/05/22 Status: CHERI Fair Num: [id number] Spec Type: Surgical Subm Dr: Tj Wells MD Tissues: A Colon Biopsy (COLON BX) B Colon Biopsy (DIVERTICULAR COLITIS) Procedures: HE Stain/4, Gross/Micro L4/2 -------- Patient: Roger Suarez [id number] (Continued) -------- Signed (signature on file) Kalpana Shaw MD 03/07/22 1025 [facility] COVID-19 Antigenon 2 COVID-19 Antigen Healthcare [...] developed and its performance characteristic determined by [employer] and validated at [facility]. This test has not been FDA [...] for SARS Antigen by ROCHELLE PERFORMED BY: [place] [address] PATHOLOGIST SEEING E[employer]G TEACHER EFI WOODRUFF M.D. Normal [facility] Comment on above: Performed By: #### C OVID-19 MARQUISE, SOFIANEG #### [place] [id number] [facility] COVID-19 SOFIAOrdered By: Sheila Wells on 03-01-2022 SARS-CoV+SARS-CoV-2 (COVID-19) Ag IA.rapid Ql (Resp) Negative Negative [facility] Comment on above: This is a duplicate Marquise SARS Antigen (ROCHELLE) result to be used for statistical tracking purpose only. No Panel InformationOrdered By: Tj Wells on 03-01-2022 SARS Antigen (LFIA) [facility] Marquise Ag Negativeon 03-01-20 22 Marquise Ag Negative Negative Normal Negative [facility] Comment on above: Result Comment: This is a duplicate Marquise SARS Antigen (ROCHELLE) result to be used for statistical tracking purpose only. PERFORMED BY: [place] [address] PATHOLOGIST SEEING EYE DOG TEACHER FEI WOODRUFF M.D. Performed By: #### C OVID-19 MARQUISE, SOFIANEG #### [address] [place] [id number] [facility] FK506 (TACROLIMUS) WHOLE BLO ODon 02-05-2022 Tacrolimus (FK506), Blood 5.4 ng/mL Normal 2.0-20.0 [facility] Comment on above: Result Comment: Trou gh (immediately following transplant) 15.0 . Trough (steady state, 2 weeks or more after transplant): 3.0 - 8.0 . Performed by LC-MS/MS technology. Performed By: #### U CLINT, CMP, LIPID, DBIL, PHOS, MG #### [facility] [address] [place] [address] Dr. Brea Causey BILIRUBIN CONJUGATED (DIRECT )on 02-01-2022 BILI, CONJUGATED 0.1 mg/dL Normal 0.0-0.2 [facility] Comment on above: Performed By: #### C BC #### [facility] [address] [place] [address] Dr. Brea Causey CBC AUTO DIFFon 02-01-2022 BASO # 0.0 103/ul Normal 0.0-0.1 [facility] Comment on above: Performed By: #### B KVIRUS #### [facility] [address] [place] [address] Dr. Brea Causey Basophils/100 WBC (Bld) 0.6 % Normal 0.2-2.0 [facility] Comment on above: Performed By: #### B KVIRUS #### [facility] [address] [place] [address] Dr. Brea Causey EO # 0.2 103/ul Normal 0.0-0.7 [facility] Comment on above: Performed By: #### B KVIRUS #### [facility] [address] [place] [address] Dr. Brea Causey Eosinophils/100 WBC (Bld) 3.5 % Normal 0.9-7.0 [facility] Comment on above: Performed By: #### B KVIRUS #### [facility] [address] [place] [address] Dr. Brea Causey Erythrocyte distribution width (RBC) [Ratio] 13.0 % Normal 11.0-15.0 [facility] Comment on above: Performed By: #### B KVIRUS #### [facility] [address] [place] [address] Dr. Brea Causey Hematocrit (Bld) [Volume fraction] 36.9 % Critically low 42.0-54.0 [facility] Comment on above: Performed By: #### B KVIRUS #### [facility] [address] [place] [address] Dr. Brea Causey Hemoglobin (Bld) [Mass/Vol] 12.0 g/dL Critically low 14.0-18.0 [facility] Comment on above: Performed By: #### B KVIRUS #### [facility] [address] [address] [address] Brea Causey IG # 0.07 10e3/ul Critically high 0.00-0.[address] [facility] Comment on above: Performed By: #### B KVIRUS #### [facility] [address] [address] [address] Brea Causey IG % 1.0 % Critically high 0.0-0.5 [facility] Comment on above: Performed By: #### B KVIRUS #### [facility] [address] [place] [address] Dr. Brea Causey LYMPH # 1.0 103/ul Critically low 1.2-3.8 [facility] Comment on above: Performed By: #### B KVIRUS #### [facility] [address] [place] [address] Dr. Brea Causey Lymphocytes/100 WBC (Bld) 14.2 % Critically low 20.5-60.0 [facility] Comment on above: Performed By: #### B KVIRUS #### [facility] [address] [place] [address] Dr. Brea Causey MANUAL DIFF REQ NO Normal [facility] Comment on above: Performed By: #### B KVIRUS #### [facility] [address] [address] [address] Brea Causey MCH (RBC) [Entitic mass] 29.1 pg Normal 25.9-34.0 [facility] Comment on above: Performed By: #### B KVIRUS #### [facility] [address] [place] [address] Dr. Brea Causey MCHC (RBC) [Mass/Vol] 32.5 g/dL Normal 29.9-35.2 [facility] Comment on above: Performed By: #### B KVIRUS #### [facility] [address] [place] [address] Dr. Brea Causey MCV (RBC) [Entitic vol] 89.6 fL Normal 80.0-94.0 [facility] Comment on above: Performed By: #### B KVIRUS #### [facility] [address] [address] [address] Brea Causey MONO # 0.7 103/ul Normal 0.3-0.8 [facility] Comment on above: Performed By: #### B KVIRUS #### [facility] [address] [address] [address] Brea Causey Monocytes/100 WBC (Bld) 9.9 % Normal 1.7-12.0 [facility] Comment on above: Performed By: #### B KVIRUS #### [facility] [address] [address] [address] Brea Causey NEUT # 4.9 103/ul Normal 1.4-6.5 [facility] Comment on above: Performed By: #### B KVIRUS #### [facility] [address] [place] [address] Dr. Brea Causey Neutrophils/100 WBC (Bld) 70.8 % Normal 43.0-75.0 [facility] Comment on above: Performed By: #### B KVIRUS #### [facility] [address] [place] [address] Dr. Brea Causey Platelet mean volume (Bld) [Entitic vol] 9.6 fL Normal 9.5-13.5 [facility] Comment on above: Performed By: #### B KVIRUS #### [facility] [address] [place] [address] Dr. Brea Causey PLT 247 103/ul Normal 150-450 [facility] Comment on above: Performed By: #### B KVIRUS #### [facility] [address] [place] [address] Dr. Brea Causey RBC 4.12 106/ul Critically low 4.70-6.[address] [facility] Comment on above: Performed By: #### B KVIRUS #### [facility] [address] [place] [address] Dr. Brea Causey WBC 6.9 103/ul Normal 4.0-11.0 [facility] Comment on above: Performed By: #### B KVIRUS #### [facility] [address] [address] [address] Brea Causey LIPID PROFILEon 02-01-2022 CHOL-HDL RATIO NORM SEE BELOW Normal [facility] Comment on above: Result Comment: 3.3 - 4.4 LOW RISK 4.4 - 7.1 AVERAGE RISK 7.1 - 11.0 MODERATE RISK >11.0 HIGH RISK Performed By: #### C BC #### [facility] [address] [address] [address] Brea Causey Cholesterol [Mass/Vol] 77 mg/dL Normal <=200 [facility] Comment on above: Performed By: #### C BC #### [facility] [address] [place] [address] Dr. Brea Causey Cholesterol in HDL [Mass/Vol] 40 mg/dL Normal 40-60 [facility] Comment on above: Performed By: #### C BC #### [facility] [address] [address] [address] Brea Causey Cholesterol in LDL [Mass/Vol] 21.0 mg/dL Normal [facility] Comment on above: Performed By: #### C BC #### [facility] [address] [place] [address] Dr. Brea Causey Cholesterol.total/Cho lesterol in HDL [Mass ratio] 1.9 {ratio} Normal [facility] Comment on above: Performed By: #### C BC #### [facility] [address] [place] [address] Dr. Brea Causey HDL NORMAL > or = 60 mg/dl - LO W CARDIOVASCULAR RISK <40 mg/dl - HIGH CARDIOVASCULAR RISK Normal [facility] Comment on above: Performed By: #### C BC #### [facility] [address] [place], [place] [id number] Dr. Brea Causey LDL CALC NORMAL SEE BELOW Normal [facility] Comment on above: Result Comment: <100 mg/dl OPTIMAL 100 - 129 mg/dl NEAR OR ABOVE OPTIMAL 130 - 159 mg/dl BORDERLINE HIGH 160 - 189 mg/dl HIGH >190 mg/dl VERY HIGH Performed By: #### C BC #### [facility] [address] [place] [address] Dr. Brea Causey Triglyceride [Mass/Vol] 80 mg/dL Normal <=150 [facility] Comment on above: Performed By: #### C BC #### [facility] [address] [place] [address] Dr. Brea Causey VLDL CALC 16.0 mg/dL Normal [facility] Comment on above: Performed By: #### C BC #### [facility] [address] [place] [address] Dr. Brea Causey MAGNESIUMon 02-01-2022 Magnesium [Mass/Vol] 1.5 mg/dL Critically low 1.8-2.4 [facility] Comment on above: Performed By: #### C BC #### [facility] [address] [place] [address] Dr. Brea Causey PHOSPHORUSon 02-01-2022 Phosphate [Mass/Vol] 4.1 mg/dL Normal 2.6-4.7 [facility] Comment on above: Performed By: #### C BC #### [facility] [address] [place] [address] Dr. Brea Causey PROF 14(COMP METB)on 022 Albumin [Mass/Vol] 4.0 g/dL Normal 3.4-5.0 [facility] Comment on above: Performed By: #### C BC #### [facility] [address] [place] [address] Dr. Brea Causey Albumin/Globulin [Mass ratio] 1.3 {ratio} Normal [facility] Comment on above: Performed By: #### C BC #### [facility] [address] [place] [address] Dr. Brea Causey ALP [Catalytic activity/Vol] 162 U/L Critically high 46-116 [facility] Comment on above: Performed By: #### C BC #### [facility] [address] [place] [address] Dr. Brea Causey ALT [Catalytic activity/Vol] 25 U/L Normal 16-63 [facility] Comment on above: Performed By: #### C BC #### [facility] [address] [address] [address] Brea Causey Anion gap [Moles/Vol] 11.1 mmol/L Normal [facility] Comment on above: Performed By: #### C BC #### [facility] [address] [address] [address] Brea Causey AST [Catalytic activity/Vol] 16 U/L Normal 15-37 [facility] Comment on above: Performed By: #### C BC #### [facility] [address] [address] [address] Brea Causey Bilirubin [Mass/Vol] 0.4 mg/dL Normal 0.2-1.0 [facility] Comment on above: Performed By: #### C BC #### [facility] [address] [address] [address] Brea Causey Calcium [Mass/Vol] 8.2 mg/dL Critically low 8.5-10.1 [facility] Comment on above: Performed By: #### C BC #### [facility] [address] [place] [address] Dr. Brea Causey Chloride [Moles/Vol] 99 mmol/L Normal 98-107 [facility] Comment on above: Performed By: #### C BC #### [facility] [address] [place] [address] Dr. Brea Causey CO2 [Moles/Vol] 28.1 mmol/L Normal 21.0-32.0 [facility] Comment on above: Performed By: #### C BC #### [facility] [address] [place] [address] Dr. Brea Causey Creatinine [Mass/Vol] 1.13 mg/dL Normal 0.70-1.30 [facility] Comment on above: Performed By: #### C BC #### [facility] [address] [place] [address] Dr. Brea Causey EGFR-AF MALTESE >60 Normal >=60 [facility] Comment on above: Performed By: #### C BC #### [facility] [address] [address] [address] Brea Causey EGFR-NON AF MALTESE >60 Normal >=60 [facility] Comment on above: Performed By: #### C BC #### [facility] [address] [place] [address] Dr. Brea Causey Globulin (S) [Mass/Vol] 3.1 g/dL Normal [facility] Comment on above: Performed By: #### C BC #### [facility] [address] [address] [address] Brea Causey Glucose [Mass/Vol] 177 mg/dL Critically high 74-106 [facility] Comment on above: Performed By: #### C BC #### [facility] [address] [place] [address] Dr. Brea Causey Potassium [Moles/Vol] 5.2 mmol/L Critically high 3.5-5.1 [facility] Comment on above: Performed By: #### C BC #### [facility] [address] [place] [address] Dr. Brea Causey Protein [Mass/Vol] 7.1 g/dL Normal 6.4-8.2 [facility] Comment on above: Performed By: #### C BC #### [facility] [address] [place] [address] Dr. Brea Causey Sodium [Moles/Vol] 133 mmol/L Critically low 136-145 [facility] Comment on above: Performed By: #### C BC #### [facility] [address] [place] [address] Dr. Brea Causey Urea nitrogen [Mass/Vol] 12.0 mg/dL Normal 7.0-18.0 [facility] Comment on above: Performed By: #### C BC #### [facility] [address] [place] [address] Dr. Brea Causey Urea nitrogen/Creatinine [Mass ratio] 10.6 mg/mg Normal [facility] Comment on above: Performed By: #### C BC #### [facility] [address] [place] [address] Dr. Brea Causey URIC ACID SERUMon 02-01-2022 Urate [Mass/Vol] 7.7 mg/dL Critically high 3.5-7.2 [facility] Comment on above: Performed By: #### C BC #### [facility] [address] [place] [address] Dr. Brea Causey FK506 (TACROLIMUS) WHOLE BLO ODon 01-06-2022 Tacrolimus (FK506), Blood 11.4 ng/mL Normal 2.0-20.0 [facility] Comment on above: Result Comment: Trou gh (immediately following transplant) 15.0 . Trough (steady state, 2 weeks or more after transplant): 3.0 - 8.0 . Performed by LC-MS/MS technology. Performed By: #### B KVIRUS #### [facility] [address] [place] [address] Dr. Brea Causey BILIRUBIN CONJUGATED (DIRECT )on 01-04-2022 BILI, CONJUGATED 0.1 mg/dL Normal 0.0-0.2 [facility] Comment on above: Performed By: #### U CLINT, CMP, LIPID, DBIL, PHOS, MG #### [facility] [address] [place] [address] Dr. Brea Causey BOX TEST SENT OUTon 01-05-20 SENT TO REF LAB 01/04/[address] [facility] Comment on above: Performed By: #### U CLINT, CMP, LIPID, DBIL, PHOS, MG #### [facility] [address] [place] [address] Dr. Brea Causey CBC AUTO DIFFon 01-04-2022 BASO # 0.0 103/ul Normal 0.0-0.1 [facility] Comment on above: Performed By: #### U CLINT, CMP, LIPID, DBIL, PHOS, MG #### [facility] [address] [place] [address] Dr. Brea Causey Basophils/100 WBC (Bld) 0.5 % Normal 0.2-2.0 [facility] Comment on above: Performed By: #### U CLINT, CMP, LIPID, DBIL, PHOS, MG #### [facility] [address] [place], [place] [id number] Dr. Brea Causey EO # 0.3 103/ul Normal 0.0-0.7 [facility] Comment on above: Performed By: #### U CLINT, CMP, LIPID, DBIL, PHOS, MG #### [facility] [address] [place] [address] Dr. Brea Causey Eosinophils/100 WBC (Bld) 3.9 % Normal 0.9-7.0 [facility] Comment on above: Performed By: #### U CLINT, CMP, LIPID, DBIL, PHOS, MG #### [facility] [address] [place] [address] Dr. Brea Causey Erythrocyte distribution width (RBC) [Ratio] 13.1 % Normal 11.0-15.0 [facility] Comment on above: Performed By: #### U CLINT, CMP, LIPID, DBIL, PHOS, MG #### [facility] [address] [place] [address] Dr. Brea Causey Hematocrit (Bld) [Volume fraction] 37.4 % Critically low 42.0-54.0 [facility] Comment on above: Performed By: #### U CLINT, CMP, LIPID, DBIL, PHOS, MG #### [facility] [address] [place] [address] Dr. Brea Causey Hemoglobin (Bld) [Mass/Vol] 12.0 g/dL Critically low 14.0-18.0 [facility] Comment on above: Performed By: #### U CLINT, CMP, LIPID, DBIL, PHOS, MG #### [facility] [address] [place] [address] Dr. Brea Causey IG # 0.07 10e3/ul Critically high 0.00-0.03 [facility] Comment on above: Performed By: #### U CLINT, CMP, LIPID, DBIL, PHOS, MG #### [facility] [address] [place] [address] Dr. Brea Causey IG % 1.1 % Critically high 0.0-0.[address] [facility] Comment on above: Performed By: #### U CLINT, CMP, LIPID, DBIL, PHOS, MG #### [facility] [address] [place] [address] Dr. Brea Causey LYMPH # 0.8 103/ul Critically low 1.2-3.8 [facility] Comment on above: Performed By: #### U CLINT, CMP, LIPID, DBIL, PHOS, MG #### [facility] [address] [place] [address] Dr. Brea Causey Lymphocytes/100 WBC (Bld) 12.2 % Critically low 20.5-60.0 [facility] Comment on above: Performed By: #### U CLINT, CMP, LIPID, DBIL, PHOS, MG #### [facility] [address] [place] [address] Dr. Brea Causey MANUAL DIFF REQ NO Normal [facility] Comment on above: Performed By: #### U CLINT, CMP, LIPID, DBIL, PHOS, MG #### [facility] [address] [place] [address] Dr. Brea Causey MCH (RBC) [Entitic mass] 29.1 pg Normal 25.9-34.0 [facility] Comment on above: Performed By: #### U CLINT, CMP, LIPID, DBIL, PHOS, MG #### [facility] [address] [place] [address] Dr. Brea Causey MCHC (RBC) [Mass/Vol] 32.1 g/dL Normal 29.9-35.2 [facility] Comment on above: Performed By: #### U CLINT, CMP, LIPID, DBIL, PHOS, MG #### [facility] [address] [place] [address] Dr. Brea Causey MCV (RBC) [Entitic vol] 90.6 fL Normal 80.0-94.0 [facility] Comment on above: Performed By: #### U CLINT, CMP, LIPID, DBIL, PHOS, MG #### [facility] [address] [place] [address] Dr. Brea Causey MONO # 0.5 103/ul Normal 0.3-0.8 [facility] Comment on above: Performed By: #### U CLINT, CMP, LIPID, DBIL, PHOS, MG #### [facility] [address] [address] [address] Brea Causey Monocytes/100 WBC (Bld) 8.0 % Normal 1.7-12.0 [facility] Comment on above: Performed By: #### U CLINT, CMP, LIPID, DBIL, PHOS, MG #### [facility] [address] [address] [address] Brea Causey NEUT # 5.0 103/ul Normal 1.4-6.5 [facility] Comment on above: Performed By: #### U CLINT, CMP, LIPID, DBIL, PHOS, MG #### [facility] [address] [address] [address] Brea Causey Neutrophils/100 WBC (Bld) 74.3 % Normal 43.0-75.0 [facility] Comment on above: Performed By: #### U CLINT, CMP, LIPID, DBIL, PHOS, MG #### [facility] [address] [address] [address] Brea Causey Platelet mean volume (Bld) [Entitic vol] 9.5 fL Normal 9.5-13.5 [facility] Comment on above: Performed By: #### U CLINT, CMP, LIPID, DBIL, PHOS, MG #### [facility] [address] [address] [address] Brea Causey PLT 243 103/ul Normal 150-450 [facility] Comment on above: Performed By: #### U CLINT, CMP, LIPID, DBIL, PHOS, MG #### [facility] [address] [address] [address] Brea Causey RBC 4.13 106/ul Critically low 4.70-6.[address] [facility] Comment on above: Performed By: #### U CLINT, CMP, LIPID, DBIL, PHOS, MG #### [facility] [address] [address] [address] Brea Causey WBC 6.7 103/ul Normal 4.0-11.0 [facility] Comment on above: Performed By: #### U CLINT, CMP, LIPID, DBIL, PHOS, MG #### [facility] [address] [place] [address] Dr. Brea Causey LIPID PROFILEon 01-04-2022 CHOL-HDL RATIO NORM SEE BELOW Normal [facility] Comment on above: Result Comment: 3.3 - 4.4 LOW RISK 4.4 - 7.1 AVERAGE RISK 7.1 - 11.0 MODERATE RISK >11.0 HIGH RISK Performed By: #### U CLINT, CMP, LIPID, DBIL, PHOS, MG #### [facility] [address] [address] [address] Brea Causey Cholesterol [Mass/Vol] 81 mg/dL Normal <=200 [facility] Comment on above: Performed By: #### U CLINT, CMP, LIPID, DBIL, PHOS, MG #### [facility] [address] [place] [address] Dr. Brea Causey Cholesterol in HDL [Mass/Vol] 43 mg/dL Normal 40-60 [facility] Comment on above: Performed By: #### U CLINT, CMP, LIPID, DBIL, PHOS, MG #### [facility] [address] [place] [address] Dr. Brea Causey Cholesterol in LDL [Mass/Vol] 26.0 mg/dL Normal [facility] Comment on above: Performed By: #### U CLINT, CMP, LIPID, DBIL, PHOS, MG #### [facility] [address] [place] [address] Dr. Brea Cuasey Cholesterol.total/Cho lesterol in HDL [Mass ratio] 1.9 {ratio} Normal [facility] Comment on above: Performed By: #### U CLINT, CMP, LIPID, DBIL, PHOS, MG #### [facility] [address] [place] [address] Dr. Brea Causey HDL NORMAL > or = 60 mg/dl - LO W CARDIOVASCULAR RISK <40 mg/dl - HIGH CARDIOVASCULAR RISK Normal [facility] Comment on above: Performed By: #### U CLINT, CMP, LIPID, DBIL, PHOS, MG #### [facility] [address] [address] [address] Brea Causey LDL CALC NORMAL SEE BELOW Normal [facility] Comment on above: Result Comment: <100 mg/dl OPTIMAL 100 - 129 mg/dl NEAR OR ABOVE OPTIMAL 130 - 159 mg/dl BORDERLINE HIGH 160 - 189 mg/dl HIGH >190 mg/dl VERY HIGH Performed By: #### U CLINT, CMP, LIPID, DBIL, PHOS, MG #### [facility] [address] [address] [address] Brea Causey Triglyceride [Mass/Vol] 60 mg/dL Normal <=150 [facility] Comment on above: Performed By: #### U CLINT, CMP, LIPID, DBIL, PHOS, MG #### [facility] [address] [place] [address] Dr. Brea Causey VLDL CALC 12.0 mg/dL Normal [facility] Comment on above: Performed By: #### U CLINT, CMP, LIPID, DBIL, PHOS, MG #### [facility] [address] [place] [address] Dr. Brea Causey MAGNESIUMon 01-04-2022 Magnesium [Mass/Vol] 1.4 mg/dL Critically low 1.8-2.4 [facility] Comment on above: Performed By: #### U CLINT, CMP, LIPID, DBIL, PHOS, MG #### [facility] [address] [place] [address] Dr. Brea Causey PHOSPHORUSon 01-04-2022 Phosphate [Mass/Vol] 4.4 mg/dL Normal 2.6-4.7 [facility] Comment on above: Performed By: #### U CLINT, CMP, LIPID, DBIL, PHOS, MG #### [facility] [address] [address] [address] Brea Causey PROF 14(COMP METB)on 022 Albumin [Mass/Vol] 3.9 g/dL Normal 3.4-5.0 [facility] Comment on above: Performed By: #### U CLINT, CMP, LIPID, DBIL, PHOS, MG #### [facility] [address] [address] [address] Brea Causey Albumin/Globulin [Mass ratio] 1.2 {ratio} Normal [facility] Comment on above: Performed By: #### U CLINT, CMP, LIPID, DBIL, PHOS, MG #### [facility] [address] [address] [address] Brea Causey ALP [Catalytic activity/Vol] 155 U/L Critically high 46-116 [facility] Comment on above: Performed By: #### U CLINT, CMP, LIPID, DBIL, PHOS, MG #### [facility] [address] [place] [address] Dr. Brea Causey ALT [Catalytic activity/Vol] 27 U/L Normal 16-63 [facility] Comment on above: Performed By: #### U CLINT, CMP, LIPID, DBIL, PHOS, MG #### [facility] [address] [place] [address] Dr. Brea Causey Anion gap [Moles/Vol] 14.6 mmol/L Normal [facility] Comment on above: Performed By: #### U CLINT, CMP, LIPID, DBIL, PHOS, MG #### [facility] [address] [place] [address] Dr. Brea Causey AST [Catalytic activity/Vol] 17 U/L Normal 15-37 [facility] Comment on above: Performed By: #### U CLINT, CMP, LIPID, DBIL, PHOS, MG #### [facility] [address] [place] [address] Dr. Brea Causey Bilirubin [Mass/Vol] 0.3 mg/dL Normal 0.2-1.0 [facility] Comment on above: Performed By: #### U CLINT, CMP, LIPID, DBIL, PHOS, MG #### [facility] [address] [place] [address] Dr. Brea Causey Calcium [Mass/Vol] 8.1 mg/dL Critically low 8.5-10.1 [facility] Comment on above: Performed By: #### U CLINT, CMP, LIPID, DBIL, PHOS, MG #### [facility] [address] [address] [address] Brea Causey Chloride [Moles/Vol] 99 mmol/L Normal 98-107 [facility] Comment on above: Performed By: #### U CLINT, CMP, LIPID, DBIL, PHOS, MG #### [facility] [address] [address] [address] Brea Causey CO2 [Moles/Vol] 25.0 mmol/L Normal 21.0-32.0 [facility] Comment on above: Performed By: #### U CLINT, CMP, LIPID, DBIL, PHOS, MG #### [facility] [address] [address] [address] Brea Causey Creatinine [Mass/Vol] 1.05 mg/dL Normal 0.70-1.30 [facility] Comment on above: Performed By: #### U CLINT, CMP, LIPID, DBIL, PHOS, MG #### [facility] [address] [place] [address] Dr. Brea Causey EGFR-AF MALTESE >60 Normal >=60 [facility] Comment on above: Performed By: #### U CLINT, CMP, LIPID, DBIL, PHOS, MG #### [facility] [address] [place] [address] Dr. Brea Causey EGFR-NON AF MALTESE >60 Normal >=60 [facility] Comment on above: Performed By: #### U CLINT, CMP, LIPID, DBIL, PHOS, MG #### [facility] [address] [place] [address] Dr. Brea Causey Globulin (S) [Mass/Vol] 3.2 g/dL Normal [facility] Comment on above: Performed By: #### U CLINT, CMP, LIPID, DBIL, PHOS, MG #### [facility] [address] [place] [address] Dr. Brea Causey Glucose [Mass/Vol] 177 mg/dL Critically high 74-106 [facility] Comment on above: Performed By: #### U CLINT, CMP, LIPID, DBIL, PHOS, MG #### [facility] [address] [address] [address] Brea Causey Potassium [Moles/Vol] 4.6 mmol/L Normal 3.5-5.1 [facility] Comment on above: Performed By: #### U CLINT, CMP, LIPID, DBIL, PHOS, MG #### [facility] [address] [address] [address] Brea Causey Protein [Mass/Vol] 7.1 g/dL Normal 6.4-8.2 [facility] Comment on above: Performed By: #### U CLINT, CMP, LIPID, DBIL, PHOS, MG #### [facility] [address] [address] [address] Brea Causey Sodium [Moles/Vol] 134 mmol/L Critically low 136-145 [facility] Comment on above: Performed By: #### U CLINT, CMP, LIPID, DBIL, PHOS, MG #### [facility] [address] [place] [address] Dr. Brea Causey Urea nitrogen [Mass/Vol] 14.0 mg/dL Normal 7.0-18.0 [facility] Comment on above: Performed By: #### U CLINT, CMP, LIPID, DBIL, PHOS, MG #### [facility] [address] [place] [address] Dr. Brea Causey Urea nitrogen/Creatinine [Mass ratio] 13.3 mg/mg Normal [facility] Comment on above: Performed By: #### U CLINT, CMP, LIPID, DBIL, PHOS, MG #### [facility] [address] [place] [address] Dr. Brea Causey URIC ACID SERUMon 01-04-2022 Urate [Mass/Vol] 7.6 mg/dL Critically high 3.5-7.2 [facility] Comment on above: Performed By: #### U CLINT, CMP, LIPID, DBIL, PHOS, MG #### [facility] [address] [place] [address] Dr. Brea Causey BK VIRUS PCR QUANTon 022 BKV DNA QUANT PCR PLASMA Negative Normal Negative [facility] Comment on above: Result Comment: No B K DNA detected. . The linear range of the assay is 22 - 100,000,000 IU/mL. Performed By: #### B KVIRUS #### [facility] [address] [place] [address] Dr. Brea Causey Log10 BKV DNA Plasma Normal [facility] Comment on above: Performed By: #### B KVIRUS #### [facility] [address] [place] [address] Dr. Brea Causey FK506 (TACROLIMUS) WHOLE BLO ODon 12-03-2021 Tacrolimus (FK506), Blood 5.6 ng/mL Normal 2.0-20.0 [facility] Comment on above: Result Comment: Trou gh (immediately following transplant) 15.0 . Trough (steady state, 2 weeks or more after transplant): 3.0 - 8.0 . Performed by LC-MS/MS technology. Performed By: #### U CLINT, CMP, LIPID, DBIL, PHOS, MG #### [facility] [address] [place] [address] Dr. Brea Causey TESTOSTERONE, FREE,DIRECT, T OTALon 12-03-2021 Free Testosterone(Direct) 7.5 pg/mL Normal 6.6-18.1 [facility] Comment on above: Result Comment: Perf ormed at: BN Performed By: #### U CLINT, CMP, LIPID, DBIL, PHOS, MG #### [facility] [address] [place] [address] Dr. Brea Causey Testosterone [Mass/Vol] 467 ng/dL Normal 264-916 [facility] Comment on above: Result Comment: Adul t male reference interval is based on a population of healthy nonobese males (BMI <30) between 19 and 39 years old. Steven, et.al. JCEM 2017,102;[id number]. PMID: [id number]. Performed at: CB Performed By: #### U CLINT, CMP, LIPID, DBIL, PHOS, MG #### [facility] [address] [place] [address] Dr. Brea Causey BILIRUBIN CONJUGATED (DIRECT )on 11-30-2021 BILI, CONJUGATED 0.2 mg/dL Normal 0.0-0.2 [facility] Comment on above: Performed By: #### B KVIRUS #### [facility] [address] [place] [address] Dr. Brea Causey CBC AUTO DIFFon 11-30-2021 BASO # 0.0 103/ul Normal 0.0-0.1 [facility] Comment on above: Performed By: #### U CLINT, CMP, LIPID, DBIL, PHOS, MG #### [facility] [address] [place] [address] Dr. Brea Causey Basophils/100 WBC (Bld) 0.6 % Normal 0.2-2.0 [facility] Comment on above: Performed By: #### U CLINT, CMP, LIPID, DBIL, PHOS, MG #### [facility] [address] [place] [address] Dr. Brea Causey EO # 0.2 103/ul Normal 0.0-0.7 [facility] Comment on above: Performed By: #### U CLINT, CMP, LIPID, DBIL, PHOS, MG #### [facility] [address] [place] [address] Dr. Brea Causey Eosinophils/100 WBC (Bld) 2.7 % Normal 0.9-7.0 [facility] Comment on above: Performed By: #### U CLINT, CMP, LIPID, DBIL, PHOS, MG #### [facility] [address] [place] [address] Dr. Brea Causey Erythrocyte distribution width (RBC) [Ratio] 13.0 % Normal 11.0-15.0 [facility] Comment on above: Performed By: #### U CLINT, CMP, LIPID, DBIL, PHOS, MG #### [facility] [address] [place] [address] Dr. Brea Causey Hematocrit (Bld) [Volume fraction] 37.6 % Critically low 42.0-54.0 [facility] Comment on above: Performed By: #### U CLINT, CMP, LIPID, DBIL, PHOS, MG #### [facility] [address] [place] [address] Dr. Brea Causey Hemoglobin (Bld) [Mass/Vol] 12.4 g/dL Critically low 14.0-18.0 [facility] Comment on above: Performed By: #### U CLINT, CMP, LIPID, DBIL, PHOS, MG #### [facility] [address] [address] [address] Brea Causey IG # 0.06 10e3/ul Critically high 0.00-0.[address] [facility] Comment on above: Performed By: #### U CLINT, CMP, LIPID, DBIL, PHOS, MG #### [facility] [address] [address] [address] Brea Causey IG % 0.9 % Critically high 0.0-0.5 [facility] Comment on above: Performed By: #### U CLINT, CMP, LIPID, DBIL, PHOS, MG #### [facility] [address] [address] [address] Brea Causey LYMPH # 1.0 103/ul Critically low 1.2-3.8 [facility] Comment on above: Performed By: #### U CLINT, CMP, LIPID, DBIL, PHOS, MG #### [facility] [address] [address] [address] Brea Causey Lymphocytes/100 WBC (Bld) 14.6 % Critically low 20.5-60.0 [facility] Comment on above: Performed By: #### U CLINT, CMP, LIPID, DBIL, PHOS, MG #### [facility] [address] [place] [address] Dr. Brea Causey MANUAL DIFF REQ NO Normal [facility] Comment on above: Performed By: #### U CLINT, CMP, LIPID, DBIL, PHOS, MG #### [facility] [address] [address] [address] Brea Causey MCH (RBC) [Entitic mass] 29.4 pg Normal 25.9-34.0 [facility] Comment on above: Performed By: #### U CLINT, CMP, LIPID, DBIL, PHOS, MG #### [facility] [address] [place] [address] Dr. Brea Causey MCHC (RBC) [Mass/Vol] 33.0 g/dL Normal 29.9-35.2 [facility] Comment on above: Performed By: #### U CLINT, CMP, LIPID, DBIL, PHOS, MG #### [facility] [address] [place] [address] Dr. Brea Causey MCV (RBC) [Entitic vol] 89.1 fL Normal 80.0-94.0 [facility] Comment on above: Performed By: #### U CLINT, CMP, LIPID, DBIL, PHOS, MG #### [facility] [address] [place] [address] Dr. Brea Causey MONO # 0.7 103/ul Normal 0.3-0.8 [facility] Comment on above: Performed By: #### U CLINT, CMP, LIPID, DBIL, PHOS, MG #### [facility] [address] [place] [address] Dr. Brea Causey Monocytes/100 WBC (Bld) 10.0 % Normal 1.7-12.0 [facility] Comment on above: Performed By: #### U CLINT, CMP, LIPID, DBIL, PHOS, MG #### [facility] [address] [place] [address] Dr. Bera Causey NEUT # 4.8 103/ul Normal 1.4-6.5 [facility] Comment on above: Performed By: #### U CLINT, CMP, LIPID, DBIL, PHOS, MG #### [facility] [address] [place] [address] Dr. Brea Causey Neutrophils/100 WBC (Bld) 71.2 % Normal 43.0-75.0 [facility] Comment on above: Performed By: #### U CLINT, CMP, LIPID, DBIL, PHOS, MG #### [facility] [address] [place] [address] Dr. Brea Causey Platelet mean volume (Bld) [Entitic vol] 9.0 fL Critically low 9.5-13.5 [facility] Comment on above: Performed By: #### U CLINT, CMP, LIPID, DBIL, PHOS, MG #### [facility] [address] [address] [address] Brea Causey PLT 280 103/ul Normal 150-450 [facility] Comment on above: Performed By: #### U CLINT, CMP, LIPID, DBIL, PHOS, MG #### [facility] [address] [address] [address] Brea Causey RBC 4.22 106/ul Critically low 4.70-6.10 [facility] Comment on above: Performed By: #### U CLINT, CMP, LIPID, DBIL, PHOS, MG #### [facility] [address] [address] [address] Brea Causey WBC 6.7 103/ul Normal 4.0-11.0 [facility] Comment on above: Performed By: #### U CLINT, CMP, LIPID, DBIL, PHOS, MG #### [facility] [address] [address] [address] Brea Causey GLYCOHEMOGLOBIN A1Con 2021 ADA RECOMMENDATION SEE BELOW Normal [facility] Comment on above: Result Comment: ADA RECOMMENDED LIMIT 4.0 - 6.0 ADA THERAPEUTIC TARGET < 7.0 ACTION SUGGESTED > 7.0 Performed By: #### B KVIRUS #### [facility] [address] [address] [address] Brea Causey Glucose [Mass/Vol] 171 mg/dL Normal [facility] Comment on above: Performed By: #### B KVIRUS #### [facility] [address] [address] [address] Brea Causey HbA1c (Bld) [Mass fraction] 7.6 % Critically high 4.5-6.2 [facility] Comment on above: Performed By: #### B KVIRUS #### [facility] [address] [address] [address] Brea Causey LIPID PROFILEon 11-30-2021 CHOL-HDL RATIO NORM SEE BELOW Normal [facility] Comment on above: Result Comment: 3.3 - 4.4 LOW RISK 4.4 - 7.1 AVERAGE RISK 7.1 - 11.0 MODERATE RISK >11.0 HIGH RISK Performed By: #### C BC #### [facility] [address] [place] [address] Dr. Brea Causey Cholesterol [Mass/Vol] 75 mg/dL Normal <=200 [facility] Comment on above: Performed By: #### C BC #### [facility] [address] [place] [address] Dr. Brea Causey Cholesterol in HDL [Mass/Vol] 41 mg/dL Normal 40-60 [facility] Comment on above: Performed By: #### C BC #### [facility] [address] [place] [address] Dr. Brea Causey Cholesterol in LDL [Mass/Vol] 18.6 mg/dL Normal [facility] Comment on above: Performed By: #### C BC #### [facility] [address] [place] [address] Dr. Brea Causey Cholesterol.total/Cho lesterol in HDL [Mass ratio] 1.8 {ratio} Normal [facility] Comment on above: Performed By: #### C BC #### [facility] [address] [place] [address] Dr. Brea Causey HDL NORMAL > or = 60 mg/dl - LO W CARDIOVASCULAR RISK <40 mg/dl - HIGH CARDIOVASCULAR RISK Normal [facility] Comment on above: Performed By: #### C BC #### [facility] [address] [place] [address] Dr. Brea Causey LDL CALC NORMAL SEE BELOW Normal [facility] Comment on above: Result Comment: <100 mg/dl OPTIMAL 100 - 129 mg/dl NEAR OR ABOVE OPTIMAL 130 - 159 mg/dl BORDERLINE HIGH 160 - 189 mg/dl HIGH >190 mg/dl VERY HIGH Performed By: #### C BC #### [facility] [address] [place] [address] Dr. Brea Causey Triglyceride [Mass/Vol] 77 mg/dL Normal <=150 [facility] Comment on above: Performed By: #### C BC #### [facility] [address] [address] [address] Brea Causey VLDL CALC 15.4 mg/dL Normal [facility] Comment on above: Performed By: #### C BC #### [facility] [address] [place] [address] Dr. Brea Causey MAGNESIUMon 11-30-2021 Magnesium [Mass/Vol] 1.4 mg/dL Critically low 1.8-2.4 [facility] Comment on above: Performed By: #### B KVIRUS #### [facility] [address] [place] [address] Dr. Brea Causey PHOSPHORUSon 11-30-2021 Phosphate [Mass/Vol] 4.1 mg/dL Normal 2.6-4.7 [facility] Comment on above: Performed By: #### C BC #### [facility] [address] [place] [address] Dr. Brea Causey PROF 14(COMP METB)on 022 Albumin [Mass/Vol] 4.2 g/dL Normal 3.4-5.0 [facility] Comment on above: Performed By: #### C BC #### [facility] [address] [place] [address] Dr. Brea Causey Albumin/Globulin [Mass ratio] 1.3 {ratio} Normal [facility] Comment on above: Performed By: #### C BC #### [facility] [address] [place] [address] Dr. Brea Causey ALP [Catalytic activity/Vol] 148 U/L Critically high 46-116 [facility] Comment on above: Performed By: #### C BC #### [facility] [address] [place] [address] Dr. Brea Causey ALT [Catalytic activity/Vol] 36 U/L Normal 16-63 [facility] Comment on above: Performed By: #### C BC #### [facility] [address] [place] [address] Dr. Brea Causey Anion gap [Moles/Vol] 14.7 mmol/L Normal [facility] Comment on above: Performed By: #### C BC #### [facility] [address] [place] [address] Dr. Brea Causey AST [Catalytic activity/Vol] 21 U/L Normal 15-37 [facility] Comment on above: Performed By: #### C BC #### [facility] [address] [place] [address] Dr. Brea Causey Bilirubin [Mass/Vol] 0.4 mg/dL Normal 0.2-1.0 [facility] Comment on above: Performed By: #### C BC #### [facility] [address] [place] [address] Dr. Brea Causey Calcium [Mass/Vol] 8.3 mg/dL Critically low 8.5-10.1 [facility] Comment on above: Performed By: #### C BC #### [facility] [address] [place] [address] Dr. Brea Causey Chloride [Moles/Vol] 98 mmol/L Normal 98-107 [facility] Comment on above: Performed By: #### C BC #### [facility] [address] [place] [address] Dr. Brea Causey CO2 [Moles/Vol] 27.2 mmol/L Normal 21.0-32.0 [facility] Comment on above: Performed By: #### C BC #### [facility] [address] [place] [address] Dr. Brea Causey Creatinine [Mass/Vol] 1.10 mg/dL Normal 0.70-1.30 [facility] Comment on above: Performed By: #### C BC #### [facility] [address] [place] [address] Dr. Brea Causey EGFR-AF MALTESE >60 Normal >=60 [facility] Comment on above: Performed By: #### C BC #### [facility] [address] [place] [address] Dr. Brea Causey EGFR-NON AF MALTESE >60 Normal >=60 [facility] Comment on above: Performed By: #### C BC #### [facility] [address] [place] [address] Dr. Brea Causey Globulin (S) [Mass/Vol] 3.2 g/dL Normal [facility] Comment on above: Performed By: #### C BC #### [facility] [address] [place] [address] Dr. Brea Causey Glucose [Mass/Vol] 173 mg/dL Critically high 74-106 [facility] Comment on above: Performed By: #### C BC #### [facility] [address] [place] [address] Dr. Brea Causey Potassium [Moles/Vol] 4.9 mmol/L Normal 3.5-5.1 [facility] Comment on above: Performed By: #### C BC #### [facility] [address] [place] [address] Dr. Brea Causey Protein [Mass/Vol] 7.4 g/dL Normal 6.4-8.2 [facility] Comment on above: Performed By: #### C BC #### [facility] [address] [place] [address] Dr. Brea Causey Sodium [Moles/Vol] 135 mmol/L Critically low 136-145 [facility] Comment on above: Performed By: #### C BC #### [facility] [address] [place] [address] Dr. Brea Causey Urea nitrogen [Mass/Vol] 14.0 mg/dL Normal 7.0-18.0 [facility] Comment on above: Performed By: #### C BC #### [facility] [address] [place] [address] Dr. Brea Causey Urea nitrogen/Creatinine [Mass ratio] 12.7 mg/mg Normal [facility] Comment on above: Performed By: #### C BC #### [facility] [address] [place] [address] Dr. Brea Causey URIC ACID SERUMon 11-30-2021 Urate [Mass/Vol] 7.8 mg/dL Critically high 3.5-7.2 [facility] Comment on above: Performed By: #### C BC #### [facility] [address] [place] [address] Dr. Brea Causey BNPon 11-14-2021 Natriuretic peptide B (Bld) [Mass/Vol] 350.0 pg/mL Normal <=900.0 [facility] Comment on above: Performed By: #### C BC #### [facility] [address] [place] [address] Dr. Brea Causey CBC AUTO DIFFon 11-14-2021 BASO # 0.0 103/ul Normal 0.0-0.1 [facility] Comment on above: Performed By: #### C BC #### [facility] [address] [place] [address] Dr. Brea Causey Basophils/100 WBC (Bld) 0.1 % Critically low 0.2-2.0 [facility] Comment on above: Performed By: #### C BC #### [facility] [address] [place] [address] Dr. Brea Causey EO # 0.2 103/ul Normal 0.0-0.7 [facility] Comment on above: Performed By: #### C BC #### [facility] [address] [place] [address] Dr. Brea Causey Eosinophils/100 WBC (Bld) 1.4 % Normal 0.9-7.0 [facility] Comment on above: Performed By: #### C BC #### [facility] [address] [place] [address] Dr. Brea Causey Erythrocyte distribution width (RBC) [Ratio] 13.1 % Normal 11.0-15.0 [facility] Comment on above: Performed By: #### C BC #### [facility] [address] [place] [address] Dr. Brea Causey Hematocrit (Bld) [Volume fraction] 39.4 % Critically low 42.0-54.0 [facility] Comment on above: Performed By: #### C BC #### [facility] [address] [place] [address] Dr. Brea Causey Hemoglobin (Bld) [Mass/Vol] 13.2 g/dL Critically low 14.0-18.0 [facility] Comment on above: Performed By: #### C BC #### [facility] [address] [address] [address] Brea Causey IG # 0.11 10e3/ul Critically high 0.00-0.[address] [facility] Comment on above: Performed By: #### C BC #### [facility] [address] [address] [address] Brea Causey IG % 0.6 % Critically high 0.0-0.5 [facility] Comment on above: Performed By: #### C BC #### [facility] [address] [place] [address] Dr. Brea Causey LYMPH # 1.1 103/ul Critically low 1.2-3.8 [facility] Comment on above: Performed By: #### C BC #### [facility] [address] [place] [address] Dr. Brea Causey Lymphocytes/100 WBC (Bld) 6.7 % Critically low 20.5-60.0 [facility] Comment on above: Performed By: #### C BC #### [facility] [address] [place] [address] Dr. Brea Causey MANUAL DIFF REQ NO Normal [facility] Comment on above: Performed By: #### C BC #### [facility] [address] [place] [address] Dr. Brea Causey MCH (RBC) [Entitic mass] 29.5 pg Normal 25.9-34.0 [facility] Comment on above: Performed By: #### C BC #### [facility] [address] [place] [address] Dr. Brea Causey MCHC (RBC) [Mass/Vol] 33.5 g/dL Normal 29.9-35.2 [facility] Comment on above: Performed By: #### C BC #### [facility] [address] [place] [address] Dr. Brea Causey MCV (RBC) [Entitic vol] 88.1 fL Normal 80.0-94.0 [facility] Comment on above: Performed By: #### C BC #### [facility] [address] [id number] [address] Brea Causey MONO # 1.5 103/ul Critically high 0.3-0.[address] [facility] Comment on above: Performed By: #### C BC #### [facility] [address] [address] [address] Brea Causey Monocytes/100 WBC (Bld) 8.6 % Normal 1.7-12.0 [facility] Comment on above: Performed By: #### C BC #### [facility] [address] [address] [address] Brea Causey NEUT # 14.0 103/ul Critically high 1.4-6.5 [facility] Comment on above: Performed By: #### C BC #### [facility] [address] [place] [address] Dr. Brea Causey Neutrophils/100 WBC (Bld) 82.6 % Critically high 43.0-75.0 [facility] Comment on above: Performed By: #### C BC #### [facility] [address] [place] [address] Dr. Brea Causey Platelet mean volume (Bld) [Entitic vol] 9.5 fL Normal 9.5-13.5 [facility] Comment on above: Performed By: #### C BC #### [facility] [address] [place] [address] Dr. Brea Causey PLT 303 103/ul Normal 150-450 [facility] Comment on above: Performed By: #### C BC #### [facility] [address] [place] [address] Dr. Brea Causey RBC 4.47 106/ul Critically low 4.70-6.[address] [facility] Comment on above: Performed By: #### C BC #### [facility] [address] [place] [address] Dr. Brea Causey WBC 17.0 103/ul Critically high 4.0-11.0 [facility] Comment on above: Performed By: #### C BC #### [facility] [address] [place] [address] Dr. Brea Causey Covid-19 PCR (CVDTBH)on SARS-CoV-2 (COVID-19) RNA ISI+probe Ql (Unsp spec) Not detected Normal NOT DETECTED [facility] Comment on above: Result Comment: When diagnostic [...] for this test is supported by the [place] of [employer] and Human Service's declaration that [...] CLINT, CMP, LIPID, DBIL, PHOS, MG #### [facility] [address] [place] [address] Dr. Brea Causey ER URINE PROFILEon 2 Bilirubin Ql (U) Negative Normal NEGATIVE [facility] Comment on above: Performed By: #### U CLINT, CMP, LIPID, DBIL, PHOS, MG #### [facility] [address] [place] [address] Dr. Brea Causey Clarity (U) CLEAR Normal CLEAR [facility] Comment on above: Performed By: #### U CLINT, CMP, LIPID, DBIL, PHOS, MG #### [facility] [address] [place] [address] Dr. Brea Causey Color (U) YELLOW Normal YELLOW [facility] Comment on above: Performed By: #### U CLINT, CMP, LIPID, DBIL, PHOS, MG #### [facility] [address] [place] [address] Dr. Brea Causey ERUAHD A micrscopic examination will be performed if indicated. Normal [facility] Comment on above: Performed By: #### U CLINT, CMP, LIPID, DBIL, PHOS, MG #### [facility] [address] [address] [address] Brea Causey Glucose Ql (U) Negative Normal NEGATIVE [facility] Comment on above: Performed By: #### U CLINT, CMP, LIPID, DBIL, PHOS, MG #### [facility] [address] [address] [address] Brea Causey Hemoglobin Ql (U) Negative Normal NEGATIVE [facility] Comment on above: Performed By: #### U CLINT, CMP, LIPID, DBIL, PHOS, MG #### [facility] [address] [address] [address] Brea Causey Ketones Ql (U) Negative Normal NEGATIVE [facility] Comment on above: Performed By: #### U CLINT, CMP, LIPID, DBIL, PHOS, MG #### [facility] [address] [address] [address] Brea Causey LEUKOCYTES Negative Normal NEGATIVE [facility] Comment on above: Performed By: #### U CLINT, CMP, LIPID, DBIL, PHOS, MG #### [facility] [address] [address] [address] Brea Causey Nitrite Ql (U) Negative Normal NEGATIVE [facility] Comment on above: Performed By: #### U CLINT, CMP, LIPID, DBIL, PHOS, MG #### [facility] [address] [address] [address] Brea Causey pH (U) 6.0 [pH] Normal 5-9 [facility] Comment on above: Performed By: #### U CLINT, CMP, LIPID, DBIL, PHOS, MG #### [facility] [address] [address] [address] Brea Causey SPEC GRAVITY <=1.005 Abnormal 1.005-<=1.025 [facility] Comment on above: Performed By: #### U CLINT, CMP, LIPID, DBIL, PHOS, MG #### [facility] [address] [address] [address] Brea Causey UA PROTEIN Negative Normal NEGATIVE/ TRACE [facility] Comment on above: Performed By: #### U CLINT, CMP, LIPID, DBIL, PHOS, MG #### [facility] [address] [address] [address] Brea Causey UR MICRO IND NOT INDICATED Normal [facility] Comment on above: Performed By: #### U CLINT, CMP, LIPID, DBIL, PHOS, MG #### [facility] [address] [address] [address] Brea Causey Urobilinogen Qn (U) 0.2 {Sabine'U}/dL Normal 0.2 - 1. 0 [facility] Comment on above: Performed By: #### U CLINT, CMP, LIPID, DBIL, PHOS, MG #### [facility] [facility] [address] [place] [address] Dr. Brea Causey GI PANEL (PCR)on 11-14-2021 Adenovirus F 40/41 Not detected Normal NOT DETECTED [facility] Comment on above: Performed By: #### U CLINT, CMP, LIPID, DBIL, PHOS, MG #### [facility] [address] [place] [address] Dr. Brea Causey Astrovirus Not detected Normal NOT DETECTED [facility] Comment on above: Performed By: #### U CLINT, CMP, LIPID, DBIL, PHOS, MG #### [facility] [address] [place] [address] Dr. Brea Causey C. Diff toxin A/B Not detected Normal NOT DETECTED The [facility] Comment on above: Performed By: #### U CLINT, CMP, LIPID, DBIL, PHOS, MG #### [facility] [address] [place] [address] Dr. Brea Causey Campylobacter Not detected Normal NOT DETECTED The [facility] Comment on above: Performed By: #### U CLINT, CMP, LIPID, DBIL, PHOS, MG #### [facility] [address] [place] [address] Dr. Brea Causey Cryptosporidium Not detected Normal NOT DETECTED [facility] Comment on above: Performed By: #### U CLINT, CMP, LIPID, DBIL, PHOS, MG #### [facility] [address] [place] [address] Dr. Brea Causey Cyclos. Cayetanensis Not detected Normal NOT DETECTED [facility] Comment on above: Performed By: #### U CLINT, CMP, LIPID, DBIL, PHOS, MG #### [facility] [address] [place] [address] Dr. Brea Causey E. Coli O157 Not Applicable Normal Not Applicable [facility] Comment on above: Performed By: #### U CLINT, CMP, LIPID, DBIL, PHOS, MG #### [facility] [address] [place] [address] Dr. Brea Causey E. histolytica Not detected Normal NOT DETECTED The [facility] Comment on above: Performed By: #### U CLINT, CMP, LIPID, DBIL, PHOS, MG #### [facility] [address] [place] [address] Dr. Brea Causey EAEC Not detected Normal NOT DETECTED [facility] Comment on above: Performed By: #### U CLINT, CMP, LIPID, DBIL, PHOS, MG #### [facility] [address] [place] [address] Dr. Brea Causey EIEC Not detected Normal NOT DETECTED [facility] Comment on above: Performed By: #### U CLINT, CMP, LIPID, DBIL, PHOS, MG #### [facility] [address] [place] [address] Dr. Brea Causey EPEC Not detected Normal NOT DETECTED [facility] Comment on above: Performed By: #### U CLINT, CMP, LIPID, DBIL, PHOS, MG #### [facility] [address] [place] [address] Dr. Brea Causey ETEC Not detected Normal NOT DETECTED [facility] Comment on above: Performed By: #### U CLINT, CMP, LIPID, DBIL, PHOS, MG #### [facility] [address] [place] [address] Dr. Brea Cloon Not detected Normal NOT DETECTED [facility] Comment on above: Performed By: #### U CLINT, CMP, LIPID, DBIL, PHOS, MG #### [facility] [address] [address] [address] Brea LEZAMA CONTROLS PASSED Normal The [facility] Comment on above: Performed By: #### U CLINT, CMP, LIPID, DBIL, PHOS, MG #### [facility] [address] [address] [address] Brea HERNANDEZ HEADER GI PANEL BACTERIA Normal [facility] Comment on above: Performed By: #### U CLINT, CMP, LIPID, DBIL, PHOS, MG #### [facility] [address] [address] [address] Brea PINTO ECOLI GI PANEL DIARRHEAGENIC E.COLI / SHIGELLA Normal [facility] Comment on above: Performed By: #### U CLINT, CMP, LIPID, DBIL, PHOS, MG #### [facility] [address] [address] [address] Brea PINTO INFO SEE BELOW Normal [facility] Comment on above: Result Comment: EAEC - Enteroaggregative E. Coli EPEC- Enteropathogenic E. Coli ETEC- Enterotoxigenic E. Coli lt/st STEC- Shigella-like toxin-producing E. Coli stx1/stx2 EIEC- Shigella/Enteroinvasive E. Coli Performed By: #### U CLINT, CMP, LIPID, DBIL, PHOS, MG #### [facility] [address] [address] [address] Brea PINTO PARASITES GI PANEL PARASITES Normal [facility] Comment on above: Performed By: #### U CLINT, CMP, LIPID, DBIL, PHOS, MG #### [facility] [address] [address] [address] Brea PINTO VIRUS GI PANEL VIRUSES Normal [facility] Comment on above: Performed By: #### U CLINT, CMP, LIPID, DBIL, PHOS, MG #### [facility] [address] [address] [address] Brea Causey Norovirus GI/GII Not detected Normal NOT DETECTED [facility] Comment on above: Performed By: #### U CLINT, CMP, LIPID, DBIL, PHOS, MG #### [facility] [address] [address] [address] Brea Causey P. Shigelloides Not detected Normal NOT DETECTED [facility] Comment on above: Performed By: #### U CLINT, CMP, LIPID, DBIL, PHOS, MG #### [facility] [address] [address] [address] Brea Causey Rotavirus A Not detected Normal NOT DETECTED The [facility] Comment on above: Performed By: #### U CLINT, CMP, LIPID, DBIL, PHOS, MG #### [facility] [address] [address] [address] Brea Causey Salmonella Not detected Normal NOT DETECTED [facility] Comment on above: Performed By: #### U CLINT, CMP, LIPID, DBIL, PHOS, MG #### [facility] [address] [address] [address] Brea Causey Sapovirus Not detected Normal NOT DETECTED [facility] Comment on above: Performed By: #### U CLINT, CMP, LIPID, DBIL, PHOS, MG #### [facility] [address] [place] [address] Dr. Brea Causey STEC Not detected Normal NOT DETECTED [facility] Comment on above: Performed By: #### U CLINT, CMP, LIPID, DBIL, PHOS, MG #### [facility] [address] [address] [address] Brea Causey Vibrio Not detected Normal NOT DETECTED [facility] Comment on above: Performed By: #### U CLINT, CMP, LIPID, DBIL, PHOS, MG #### [facility] [address] [address] [address] Brea Causey Vibrio Cholera Not detected Normal NOT DETECTED The [facility] Comment on above: Performed By: #### U CLINT, CMP, LIPID, DBIL, PHOS, MG #### [facility] [address] [address] [address] Brea Phelps Enterocolitica Not detected Normal NOT DETECTED [facility] Comment on above: Performed By: #### U CLINT, CMP, LIPID, DBIL, PHOS, MG #### [facility] [address] [place] [address] Dr. Brea Causey PROF 14(COMP METB)on 022 Albumin [Mass/Vol] 4.0 g/dL Normal 3.4-5.0 [facility] Comment on above: Performed By: #### C BC #### [facility] [address] [place] [address] Dr. Brea Causey Albumin/Globulin [Mass ratio] 1.3 {ratio} Normal [facility] Comment on above: Performed By: #### C BC #### [facility] [address] [place] [address] Dr. Brea Causey ALP [Catalytic activity/Vol] 142 U/L Critically high 46-116 [facility] Comment on above: Performed By: #### C BC #### [facility] [address] [place] [address] Dr. Brea Causey ALT [Catalytic activity/Vol] 39 U/L Normal 16-63 [facility] Comment on above: Performed By: #### C BC #### [facility] [address] [place] [address] Dr. Brea Causey Anion gap [Moles/Vol] 13.6 mmol/L Normal [facility] Comment on above: Performed By: #### C BC #### [facility] [address] [place] [address] Dr. Brea Causey AST [Catalytic activity/Vol] 23 U/L Normal 15-37 [facility] Comment on above: Performed By: #### C BC #### [facility] [address] [place] [address] Dr. Brea Causey Bilirubin [Mass/Vol] 0.4 mg/dL Normal 0.2-1.0 [facility] Comment on above: Performed By: #### C BC #### [facility] [address] [address] [address] Brea Cauesy Calcium [Mass/Vol] 8.4 mg/dL Critically low 8.5-10.1 [facility] Comment on above: Performed By: #### C BC #### [facility] [address] [address] [address] Brea Causey Chloride [Moles/Vol] 97 mmol/L Critically low 98-107 [facility] Comment on above: Performed By: #### C BC #### [facility] [address] [address] [address] Brea Causey CO2 [Moles/Vol] 26.1 mmol/L Normal 21.0-32.0 [facility] Comment on above: Performed By: #### C BC #### [facility] [address] [place] [address] Dr. Brea Causey Creatinine [Mass/Vol] 1.21 mg/dL Normal 0.70-1.30 [facility] Comment on above: Performed By: #### C BC #### [facility] [address] [place] [address] Dr. Brea Causey EGFR-AF MALTESE >60 Normal >=60 [facility] Comment on above: Performed By: #### C BC #### [facility] [address] [place] [address] Dr. Brea Causey EGFR-NON AF MALTESE 59 mL/min/1.73m2 Critically low >=60 [facility] Comment on above: Performed By: #### C BC #### [facility] [address] [place] [address] Dr. Brea Causey Globulin (S) [Mass/Vol] 3.2 g/dL Normal [facility] Comment on above: Performed By: #### C BC #### [facility] [address] [place] [address] Dr. Brea Causey Glucose [Mass/Vol] 227 mg/dL Critically high 74-106 [facility] Comment on above: Performed By: #### C BC #### [facility] [address] [place] [address] Dr. Brea Causey Potassium [Moles/Vol] 4.7 mmol/L Normal 3.5-5.1 [facility] Comment on above: Performed By: #### C BC #### [facility] [address] [address] [address] Brea Causey Protein [Mass/Vol] 7.2 g/dL Normal 6.4-8.2 [facility] Comment on above: Performed By: #### C BC #### [facility] [address] [address] [address] Brea Causey Sodium [Moles/Vol] 132 mmol/L Critically low 136-145 [facility] Comment on above: Performed By: #### C BC #### [facility] [address] [place] [address] Dr. Brae Causey Urea nitrogen [Mass/Vol] 12.0 mg/dL Normal 7.0-18.0 [facility] Comment on above: Performed By: #### C BC #### [facility] [address] [place] [address] Dr. Brea Causey Urea nitrogen/Creatinine [Mass ratio] 9.9 mg/mg Normal [facility] Comment on above: Performed By: #### C BC #### [facility] [address] [place] [address] Dr. Brea Causey CBC W/DIFFon 10-31-2021 ABS IMM GRANS 0.1 10*3/uL Normal 0.0-0.2 [facility] Comment on above: Performed By: #### 4 5506, 30264, 34651, 01975, 29082, 12193 #### [facility] [address] [place] [address], [facility] ABS NEUTROPHILS 5.9 10*3/uL Normal 1.6-7.6 [facility] Comment on above: Performed By: #### 4 5506, 07695, 02526, 36784, 66678, 19671 #### [facility] [address] [place] [address], [facility] Basophils (Bld) [#/Vol] 0.0 10*3/uL Normal 0.0-0.2 [facility] Comment on above: Performed By: #### 4 5506, 94432, 60836, 12475, 55187, 17154 #### [facility] [address] [place] [address], [facility] Basophils/100 WBC (Bld) 0.3 % Normal 0.0-1.0 [facility] Comment on above: Performed By: #### 4 5506, 12493, 90097, 20199, 54075, 70812 #### [facility] [address] [place] [address], [facility] Eosinophils (Bld) [#/Vol] 0.2 10*3/uL Normal 0.0-0.5 [facility] Comment on above: Performed By: #### 4 5506, 28516, 46246, 36997, 31208, 05096 #### [facility] [address] [place] [address], [facility] Eosinophils/100 WBC (Bld) 2.3 % Normal 0.0-6.0 [facility] Comment on above: Performed By: #### 4 5506, 31178, 00789, 38219, 27645, 70936 #### [facility] [address] [place] [address], [facility] Erythrocyte distribution width (RBC) [Ratio] 13.4 % Normal 11.5-15.0 [facility] Comment on above: Performed By: #### 4 5506, 71973, 32969, 36260, 55215, 65371 #### [facility] [address] [place] [address], [facility] Hematocrit (Bld) [Volume fraction] 36.1 % Low 39.0-50.0 [facility] Comment on above: Performed By: #### 4 5506, 62860, 44783, 52959, 26545, 17737 #### [facility] [address] [place] [address], [facility] Hemoglobin (Bld) [Mass/Vol] 11.9 g/dL Low 13.0-17.0 [facility] Comment on above: Performed By: #### 4 5506, 68065, 60349, 90010, 82129, 16329 #### [facility] [address] [place] [address], [facility] IMMATURE GRANS 0.7 % Normal 0.0-1.0 [facility] Comment on above: Performed By: #### 4 5506, 76290, 81614, 18930, 46245, 76171 #### [facility] [address] [place] [address], [facility] Lymphocytes (Bld) [#/Vol] 0.9 10*3/uL Low 1.2-4.0 [facility] Comment on above: Performed By: #### 4 5506, 94780, 32870, 39882, 31259, 44565 #### [facility] [address] [place] [address], [facility] Lymphocytes/100 WBC (Bld) 12.1 % Low 20.0-45.0 [facility] Comment on above: Performed By: #### 4 5506, 71582, 01722, 56558, 63996, 92453 #### [facility] [address] [facility] [place] [address], [facility] MCH (RBC) [Entitic mass] 29.3 pg Normal 27.0-33.0 [facility] Comment on above: Performed By: #### 4 5506, 77326, 38256, 23298, 36722, 44231 #### [facility] [address] [place] [address], [facility] MCHC (RBC) [Mass/Vol] 33.0 g/dL Normal 32.0-35.0 [facility] Comment on above: Performed By: #### 4 5506, 57871, 81248, 33811, 91180, 75293 #### [facility] [address] [facility] [address] MCV (RBC) [Entitic vol] 88.9 fL Normal 82.0-98.0 [facility] Comment on above: Performed By: #### 4 5506, 41542, 97237, 09327, 02346, 77407 #### [facility] [address] Monocytes (Bld) [#/Vol] 0.6 10*3/uL Normal 0.1-1.0 [facility] Comment on above: Performed By: #### 4 5506, 84180, 31993, 50894, 80019, 39327 #### [facility] [address] MONOS 8.3 % Normal 5.0-12.0 [facility] Comment on above: Performed By: #### 4 5506, 20305, 54925, 86711, 63572, 75441 #### [facility] [address] Neutrophils/100 WBC (Bld) 76.3 % High 40.0-72.0 [facility] Comment on above: Performed By: #### 4 5506, 04642, 21730, 57146, 41074, 54532 #### [facility] [address] Nucleated RBC/100 WBC (Bld) [Ratio] 0 % Normal 0-0 [facility] Comment on above: Performed By: #### 4 5506, 39635, 86744, 28322, 38346, 95527 #### [facility] [address] [facility] [place] [address], [facility] PLAT CNT 260 10*3/uL Normal 150-400 [facility] Comment on above: Performed By: #### 4 5506, 13330, 48511, 84653, 50061, 59037 #### [facility] [address] [place] [address], [facility] RBC (Bld) [#/Vol] 4.06 10*6/uL Low 4.20-5.70 [facility] Comment on above: Performed By: #### 4 5506, 65035, 23342, 47160, 08405, 69251 #### [facility] [address] [place] [address], [facility] WBC (Bld) [#/Vol] 7.68 10*3/uL Normal 4.00-10.60 [facility] Comment on above: Performed By: #### 4 5506, 26814, 36081, 00868, 21834, 94517 #### [facility] [address] [place] [address], [facility] COMP METABOLIC PANELon 10-31 Albumin [Mass/Vol] 4.4 g/dL Normal 3.5-5.7 [facility] Comment on above: Performed By: #### 4 5506, 84538, 58245, 13785, 69924, 78271 #### [facility] [address] [place] [address], [facility] ALKALINE PHOSPH 132 IU/L High 34-104 [facility] Comment on above: Performed By: #### 4 5506, 20746, 61792, 72153, 02878, 07471 #### [facility] [address] [place] [address], [facility] ALT [Catalytic activity/Vol] 26 U/L Normal 7-52 [facility] Comment on above: Performed By: #### 4 5506, 95906, 89859, 35915, 18823, 43331 #### [facility] [address] [place] [address], [place] AST [Catalytic activity/Vol] 17 U/L Normal 13-39 [facility] Comment on above: Performed By: #### 4 5506, 87212, 05333, 54702, 60639, 55602 #### [facility] [address] [place] [address], [place] Bilirubin [Mass/Vol] 0.4 mg/dL Normal 0.3-1.0 [facility] Comment on above: Performed By: #### 4 5506, 07988, 35186, 31034, 57754, 40686 #### [facility] [address] [place] [address], [place] Calcium [Mass/Vol] 8.6 mg/dL Normal 8.6-10.3 [facility] Comment on above: Performed By: #### 4 5506, 27581, 84408, 01827, 93306, 58192 #### [facility] [address] [place] [address], [place] Chloride [Moles/Vol] 97 mmol/L Low 98-107 [facility] Comment on above: Performed By: #### 4 5506, 81342, 91561, 09402, 68590, 25803 #### [facility] [address] [place] [address], [place] CO2 [Moles/Vol] 26 mmol/L Normal 21-31 [facility] Comment on above: Performed By: #### 4 5506, 38890, 04008, 12497, 33286, 67016 #### [facility] [address] [place] [address], [place] Creatinine [Mass/Vol] 1.04 mg/dL Normal 0.70-1.30 [facility] Comment on above: Performed By: #### 4 5506, 96201, 01044, 99206, 02214, 09046 #### [facility] [address] [place] [address], [place] GFR/1.73 sq M.predicted among blacks MDRD (S/P/Bld) [Vol rate/Area] mL/min/{1.73_m2} Normal >60 [facility] Comment on above: Performed By: #### 4 5506, 58714, 07008, 44247, 56738, 00143 #### [facility] [address] [place] [address], [place] GFR/1.73 sq M.predicted among non-blacks MDRD (S/P/Bld) [Vol rate/Area] mL/min/{1.73_m2} Normal >60 [facility] Comment on above: Performed By: #### 4 5506, 50465, 33637, 06466, 90673, 12301 #### [facility] [address] [place] [address], [place] Glucose [Mass/Vol] 158 mg/dL High 70-100 [facility] Comment on above: Performed By: #### 4 5506, 04126, 85661, 07128, 86471, 40846 #### [facility] [address] [place] [address], [place] Potassium [Moles/Vol] 4.4 mmol/L Normal 3.5-5.1 [facility] Comment on above: Performed By: #### 4 5506, 58070, 43595, 25854, 07614, 01108 #### [facility] [address] [place] [address], [place] Protein [Mass/Vol] 6.6 g/dL Normal 6.0-8.3 [facility] Comment on above: Performed By: #### 4 5506, 56335, 76455, 38376, 41948, 15040 #### [facility] [address] [place] [address], [place] Sodium [Moles/Vol] 131 mmol/L Low 136-145 [facility] Comment on above: Performed By: #### 4 5506, 69781, 81949, 33539, 80965, 42500 #### [facility] [address] [place] [address], [facility] Urea nitrogen [Mass/Vol] 15 mg/dL Normal 7-25 [facility] Comment on above: Performed By: #### 4 5506, 36248, 34382, 60812, 41516, 01333 #### [facility] [address] [place] [address], [facility] DIRECT BILIon 10-31-2021 Bilirubin.direct [Mass/Vol] 0.1 mg/dL Normal 0.0-0.2 [facility] Comment on above: Performed By: #### 4 5506, 31941, 26256, 36038, 88862, 64924 #### [facility] [address] [facility] [place] [address], [facility] LIPID PROFILEon 10-31-2021 Cholesterol [Mass/Vol] 70 mg/dL Low 120-200 [facility] Comment on above: Result Comment: CHOL ESTEROL REFERENCE RANGE: 20 YEARS AND OLDER CARDIOVASCULAR RISK Less than 200 mg/dl Low Risk 200 to 239 mg/dl Borderline Risk 240 mg/dl and greater High Risk Performed By: #### 4 5506, 43788, 00819, 40169, 05147, 41086 #### [facility] [address] [facility] Cholesterol in HDL [Mass/Vol] 35 mg/dL Normal 23-92 [facility] Comment on above: Result Comment: Slig ht variation in normal range could be due to gender and/or age. HDL CHOLESTEROL REFERENCE RANGE: 20 years and older Cardiovascular Risk > or =60 mg/dL Desirable 40 TO 59 mg/dL Low Risk <40 mg/dL High Risk Performed By: #### 4 5506, 04323, 45293, 80100, 05267, 72975 #### [facility] [address] [place] [address], [facility] Cholesterol in LDL [Mass/Vol] 20 mg/dL Normal 0-130 [facility] Comment on above: Result Comment: LDL IS A CALCULATION LDL IS ONLY VALID IF THE TRIG IS LESS THAN 400. Performed By: #### 4 5506, 88866, 39655, 66981, 02323, 45594 #### [facility] [address] [place] [address], [facility] Cholesterol.total/Cho lesterol in HDL [Mass ratio] 2.0 {ratio} Normal .0-4.5 [facility] Comment on above: Performed By: #### 4 5506, 69285, 06561, 89897, 56145, 83209 #### [facility] [address] [place] [address], [facility] NON-HDL CHOLESTEROL 35 mg/dL Normal [facility] Comment on above: Performed By: #### 4 5506, 80626, 73115, 66664, 44552, 65790 #### [facility] [address] [place] [address], [facility] Triglyceride [Mass/Vol] 73 mg/dL Normal 40-149 [facility] Comment on above: Result Comment: TRIG LYCERIDE REFERENCE RANGE: 20 YEARS AND OLDER CARDIOVASCULAR RISK LESS THAN 150 mg/dl LOW RISK 150 TO 199 mg/dl BORDERLINE RISK 200 mg/dl AND GREATER HIGH RISK Performed By: #### 4 5506, 37464, 86446, 04835, 70091, 40892 #### [facility] [address] [place] [address], [facility] VLDL CHOL 15 mg/dL Normal 0-40 [facility] Comment on above: Performed By: #### 4 5506, 65603, 56086, 94607, 85884, 23411 #### [facility] [address] [place] [address], [facility] MAGNESIUM BLOODon 10-31-2021 Magnesium [Mass/Vol] 1.1 mg/dL Critically low 1.9-2.7 [facility] Comment on above: Performed By: #### 4 5506, 80265, 34498, 21571, 82501, 16328 #### [facility] [address] PHOSPHORUS BLOODon Phosphate [Mass/Vol] 3.0 mg/dL Normal 2.5-5.0 [facility] Comment on above: Performed By: #### 4 5506, 23766, 39451, 78921, 05907, 99487 #### [facility] [address] PROSPERAon 10-31-2021 PROSPERA KIT Results to be mailed directly to physician's office by reference lab. Normal [facility] Hospital Comment on above: Result Comment: Test performed by [id number] [place] [address] Specimen collected for transplant patient and sent to [facility] per Dr instructions. No charge. No result expected. For billing and tracking purposes only. Performed By: #### 4 5506, 33249, 00158, 26703, 70012, 61755 #### [facility] [address] RESULT Results to be mailed directly to physician's office by reference lab. Normal [facility] Comment on above: Performed By: #### 4 5506, 07703, 83423, 04762, 13363, 28109 #### [facility] [address] [facility] [address] TACROLIMUSon 10-31-2021 Tacrolimus (Bld) [Mass/Vol] 7.6 ng/mL Normal 5.0-20.0 [facility] Comment on above: Result Comment: The [facility] Tacrolimus assay is a delayed one-step immunoassay for the quantitative determination of tacrolimus in human whole blood using the chemiluminescent microparticle immunoassay (CMIA) technology with flexible assay protocols, referred to as Chemiflex. Performed By: #### 4 5506, 31909, 49073, 42830, 49230, 41205 #### [facility] [address] [place] [address], [facility] URIC ACID BLOODon 10-31-2021 Urate [Mass/Vol] 7.8 mg/dL High 4.4-7.6 [facility] Comment on above: Performed By: #### 4 5506, 06327, 00100, 49773, 99129, 90958 #### [address] NM PARATHYROID WITH SPECT AN D CTon 07-24-2021 NM PARATHYROID WITH SPECT AND CT [facility] Department of Radiology [address] [place] [id number] Patient Name: ROGER SUAREZ : 1950 Sex: M Age: Race: White Pt. Location: Patient Status: D Ordered Date: 06/26/2021 8:40:00 AM Completed Date: 07/24/2021 01:21 PM Requesting Provider: NAGA BOSCH Attending Provider: NAGA BOSCH Report Copy To: JERICHO MCCARTHY Signs & Symptoms: E21.3 Hyperparathyroidism, unspecified I10 History: Leon NPC Req. per Mcarichie A/B for CPT 72284 *SLA Comments: , , , Ordering Provider [...] SPECT. Electronically signed: Nan Earl. Transcribed by: [email or web address], User Resident: Electronically Signed by: NAN EARL @ 07/27/2021 12:13 PM Normal [facility] Comment on above: Order Comment: , , = ========= , Ordering Provider - NAGA BOSCH MD , CBC W/DIFFon 06-22-2021 ABS IMM GRANS 0.1 10*3/uL Normal 0.0-0.2 [facility] Comment on above: Performed By: #### 4 5506, 16660, 78438, 80428, 84993, 85594 #### [facility] [address] [place] [address], [facility] ABS NEUTROPHILS 4.7 10*3/uL Normal 1.6-7.6 [facility] Comment on above: Performed By: #### 4 5506, 34498, 25007, 36876, 64852, 68324 #### [facility] [address] [place] [address], [facility] Basophils (Bld) [#/Vol] 0.0 10*3/uL Normal 0.0-0.2 [facility] Comment on above: Performed By: #### 4 5506, 04259, 70078, 85856, 22549, 94719 #### [facility] [address] [place] [address], [facility] Basophils/100 WBC (Bld) 0.6 % Normal 0.0-1.0 [facility] Comment on above: Performed By: #### 4 5506, 83554, 03721, 62772, 39029, 93243 #### [facility] [address] [facility] [place] [address], [facility] Eosinophils (Bld) [#/Vol] 0.2 10*3/uL Normal 0.0-0.5 [facility] Comment on above: Performed By: #### 4 5506, 65397, 89948, 31135, 14014, 57529 #### [facility] [address] [place] [address], [facility] Eosinophils/100 WBC (Bld) 2.5 % Normal 0.0-6.0 [facility] Comment on above: Performed By: #### 4 5506, 46027, 98071, 04306, 41705, 06782 #### [facility] [address] [facility] [place] [address], [facility] Erythrocyte distribution width (RBC) [Ratio] 13.6 % Normal 11.5-15.0 [facility] Comment on above: Performed By: #### 4 5506, 91913, 06727, 87818, 10536, 11474 #### [facility] [address] [place] [address], [facility] Hematocrit (Bld) [Volume fraction] 36.3 % Low 39.0-50.0 [facility] Comment on above: Performed By: #### 4 5506, 93221, 24226, 02608, 40854, 46585 #### [facility] [address] [facility] [place] [address], [facility] Hemoglobin (Bld) [Mass/Vol] 11.7 g/dL Low 13.0-17.0 [facility] Comment on above: Performed By: #### 4 5506, 48397, 84709, 48661, 02918, 02767 #### [facility] [address] [facility] [place] [address], [facility] IMMATURE GRANS 0.8 % Normal 0.0-1.0 [facility] Comment on above: Performed By: #### 4 5506, 94988, 46893, 19389, 44981, 06064 #### [facility] [address] [place] [address], [facility] Lymphocytes (Bld) [#/Vol] 0.9 10*3/uL Low 1.2-4.0 [facility] Comment on above: Performed By: #### 4 5506, 60915, 24906, 38097, 86037, 27170 #### [facility] [address] Lymphocytes/100 WBC (Bld) 13.6 % Low 20.0-45.0 [facility] Comment on above: Performed By: #### 4 5506, 96191, 04241, 77177, 01295, 55021 #### [facility] [address] MCH (RBC) [Entitic mass] 28.6 pg Normal 27.0-33.0 [facility] Comment on above: Performed By: #### 4 5506, 89310, 24438, 63839, 12467, 69666 #### [facility] [address] [facility] [place] [address], [facility] MCHC (RBC) [Mass/Vol] 32.2 g/dL Normal 32.0-35.0 [facility] Comment on above: Performed By: #### 4 5506, 58214, 57784, 97105, 53296, 24792 #### [facility] [address] MCV (RBC) [Entitic vol] 88.8 fL Normal 82.0-98.0 [facility] Comment on above: Performed By: #### 4 5506, 35315, 15443, 43761, 77464, 96829 #### [facility] [address] [place] [address], [facility] Monocytes (Bld) [#/Vol] 0.6 10*3/uL Normal 0.1-1.0 [facility] Comment on above: Performed By: #### 4 5506, 79488, 25326, 28734, 48642, 13909 #### [facility] [address] MONOS 9.6 % Normal 5.0-12.0 [facility] Comment on above: Performed By: #### 4 5506, 74533, 20075, 47570, 02626, 35851 #### [facility] [address] [place] [address], [facility] Neutrophils/100 WBC (Bld) 72.9 % High 40.0-72.0 [facility] Comment on above: Performed By: #### 4 5506, 20636, 64550, 52026, 33762, 25548 #### [facility] [address] [place] [address], [facility] Nucleated RBC/100 WBC (Bld) [Ratio] 0 % Normal 0-0 [facility] Comment on above: Performed By: #### 4 5506, 16520, 94170, 46978, 13150, 59562 #### [facility] [address] [facility] [place] [address], [facility] PLAT CNT 263 10*3/uL Normal 150-400 [facility] Comment on above: Performed By: #### 4 5506, 51344, 22367, 35152, 77241, 46067 #### [facility] [address] [place] [address], [facility] RBC (Bld) [#/Vol] 4.09 10*6/uL Low 4.20-5.70 [facility] Comment on above: Performed By: #### 4 5506, 64843, 37661, 95234, 64682, 64801 #### [facility] [address] [place] [address], [facility] WBC (Bld) [#/Vol] 6.45 10*3/uL Normal 4.00-10.60 [facility] Comment on above: Performed By: #### 4 5506, 82642, 29013, 66620, 93797, 52372 #### [facility] [address] [place] [address], [facility] COMP METABOLIC PANELon 06-22 Albumin [Mass/Vol] 4.3 g/dL Normal 3.5-5.7 [facility] Comment on above: Performed By: #### 4 5506, 77919, 86400, 42180, 90030, 54139 #### [facility] [address] [place] [address], [facility] ALKALINE PHOSPH 143 IU/L High 34-104 [facility] Comment on above: Performed By: #### 4 5506, 18706, 91989, 28772, 85432, 21032 #### [facility] [address] [place] [address], [place] ALT [Catalytic activity/Vol] 18 U/L Normal 7-52 [facility] Comment on above: Performed By: #### 4 5506, 76344, 12634, 48483, 32226, 20372 #### [facility] [address] [place] [address], [place] AST [Catalytic activity/Vol] 15 U/L Normal 13-39 [facility] Comment on above: Performed By: #### 4 5506, 79502, 19611, 08517, 17159, 50670 #### [facility] [address] [place] [address], [place] Bilirubin [Mass/Vol] 0.3 mg/dL Normal 0.3-1.0 [facility] Comment on above: Performed By: #### 4 5506, 10982, 40647, 36566, 69340, 80813 #### [facility] [address] [place] [address], [place] Calcium [Mass/Vol] 10.6 mg/dL High 8.6-10.3 [facility] Comment on above: Performed By: #### 4 5506, 54454, 98491, 50379, 19388, 54350 #### [facility] [address] [place] [address], [place] Chloride [Moles/Vol] 102 mmol/L Normal 98-107 [facility] Comment on above: Performed By: #### 4 5506, 65327, 36434, 34282, 23323, 75132 #### [facility] [address] [place] [address], [place] CO2 [Moles/Vol] 24 mmol/L Normal 21-31 [facility] Comment on above: Performed By: #### 4 5506, 21118, 04634, 08318, 15584, 61612 #### [facility] [address] [place] [address], [place] Creatinine [Mass/Vol] 1.04 mg/dL Normal 0.70-1.30 [facility] Comment on above: Performed By: #### 4 5506, 04779, 71093, 36995, 29640, 86389 #### [facility] [address] [place] [address], [place] GFR/1.73 sq M.predicted among blacks MDRD (S/P/Bld) [Vol rate/Area] mL/min/{1.73_m2} Normal >60 [facility] Comment on above: Performed By: #### 4 5506, 74472, 18061, 48437, 33284, 70084 #### [facility] [address] [place] [address], [place] GFR/1.73 sq M.predicted among non-blacks MDRD (S/P/Bld) [Vol rate/Area] mL/min/{1.73_m2} Normal >60 [facility] Comment on above: Performed By: #### 4 5506, 17792, 81496, 16432, 51795, 31362 #### [facility] [address] [place] [address], [place] Glucose [Mass/Vol] 167 mg/dL High 70-100 [facility] Comment on above: Performed By: #### 4 5506, 96524, 47337, 07432, 30441, 32996 #### [facility] [address] [place] [address], [place] Potassium [Moles/Vol] 5.3 mmol/L High 3.5-5.1 [facility] Comment on above: Performed By: #### 4 5506, 75309, 11852, 50186, 67231, 74963 #### [facility] [address] [place] [address], [place] Protein [Mass/Vol] 6.5 g/dL Normal 6.0-8.3 [facility] Comment on above: Performed By: #### 4 5506, 25524, 69360, 61843, 17738, 86903 #### [facility] [address] [place] [address], [place] Sodium [Moles/Vol] 134 mmol/L Low 136-145 [facility] Comment on above: Performed By: #### 4 5506, 66281, 83136, 27920, 65130, 75197 #### [facility] [address] [place] [address], [facility] Urea nitrogen [Mass/Vol] 11 mg/dL Normal 7-25 [facility] Comment on above: Performed By: #### 4 5506, 34417, 71632, 88201, 16657, 10105 #### [facility] [address] [place] [address], [facility] DIRECT BILIon 06-22-2021 Bilirubin.direct [Mass/Vol] 0.1 mg/dL Normal 0.0-0.2 [facility] Comment on above: Performed By: #### 4 5506, 46777, 65156, 07541, 87819, 87334 #### [facility] [address] [place] [address], [facility] LIPID PROFILEon 06-22-2021 Cholesterol [Mass/Vol] 77 mg/dL Low 120-200 [facility] Comment on above: Result Comment: CHOL ESTEROL REFERENCE RANGE: 20 YEARS AND OLDER CARDIOVASCULAR RISK Less than 200 mg/dl Low Risk 200 to 239 mg/dl Borderline Risk 240 mg/dl and greater High Risk Performed By: #### 4 5506, 00909, 14651, 65868, 24607, 22079 #### [facility] [address] [place] [address], [facility] Cholesterol in HDL [Mass/Vol] 40 mg/dL Normal 23-92 [facility] Comment on above: Result Comment: Slig ht variation in normal range could be due to gender and/or age. HDL CHOLESTEROL REFERENCE RANGE: 20 years and older Cardiovascular Risk > or =60 mg/dL Desirable 40 TO 59 mg/dL Low Risk <40 mg/dL High Risk Performed By: #### 4 5506, 68993, 28032, 74041, 19001, 78229 #### [facility] [address] [place] [address], [facility] Cholesterol in LDL [Mass/Vol] 24 mg/dL Normal 0-130 [facility] Comment on above: Result Comment: LDL IS A CALCULATION LDL IS ONLY VALID IF THE TRIG IS LESS THAN 400. Performed By: #### 4 5506, 19829, 38962, 92703, 66108, 03894 #### [facility] [address] [place] [address], [facility] Cholesterol.total/Cho lesterol in HDL [Mass ratio] 1.9 {ratio} Normal .0-4.5 [facility] Comment on above: Performed By: #### 4 5506, 23860, 59015, 54055, 75154, 86334 #### [facility] [address] [place] [address], [facility] NON-HDL CHOLESTEROL 37 mg/dL Normal [facility] Comment on above: Performed By: #### 4 5506, 58526, 87340, 96437, 87064, 75046 #### [facility] [address] [place] [address], [facility] Triglyceride [Mass/Vol] 63 mg/dL Normal 40-149 [facility] Comment on above: Result Comment: TRIG LYCERIDE REFERENCE RANGE: 20 YEARS AND OLDER CARDIOVASCULAR RISK LESS THAN 150 mg/dl LOW RISK 150 TO 199 mg/dl BORDERLINE RISK 200 mg/dl AND GREATER HIGH RISK Performed By: #### 4 5506, 30513, 82625, 48564, 34459, 53261 #### [facility] [address] [place] [address], [facility] VLDL CHOL 13 mg/dL Normal 0-40 [facility] Comment on above: Performed By: #### 4 5506, 62041, 80895, 71544, 23799, 54175 #### [facility] [address] [place] [address], [facility] MAGNESIUM BLOODon 06-22-2021 Magnesium [Mass/Vol] 1.4 mg/dL Low 1.9-2.7 [facility] Comment on above: Performed By: #### 4 5506, 78574, 23694, 16115, 57539, 99666 #### [facility] [address] PHOSPHORUS BLOODon Phosphate [Mass/Vol] 2.5 mg/dL Normal 2.5-5.0 [facility] Comment on above: Performed By: #### 4 5506, 51986, 45997, 22009, 32991, 63975 #### [facility] [address] PTH INTACTon 06-22-2021 PTH INTACT 155 pg/mL High 12- [facility] Comment on above: Performed By: #### 4 5506, 40422, 01062, 98476, 79484, 51730 #### [facility] [address] TACROLIMUSon 06-22-2021 Tacrolimus (Bld) [Mass/Vol] 21.0 ng/mL High 5.0-20.0 [facility] Comment on above: Result Comment: The [facility] Tacrolimus assay is a delayed one-step immunoassay for the quantitative determination of tacrolimus in human whole blood using the chemiluminescent microparticle immunoassay (CMIA) technology with flexible assay protocols, referred to as Chemiflex. Performed By: #### 4 5506, 64086, 56473, 68729, 33648, 21364 #### [facility] [address] URIC ACID BLOODon 06-22-2021 Urate [Mass/Vol] 7.9 mg/dL High 4.4-7.6 [facility] Comment on above: Performed By: #### 4 5506, 14004, 63266, 19917, 38257, 85526 #### [facility] [address] [place] [address], [facility] CBC W/DIFFon 04-19-2021 ABS IMM GRANS 0.1 10*3/uL Normal 0.0-0.2 [facility] Comment on above: Performed By: #### 4 5506, 03327, 57586, 30099, 72122, 43717 #### [facility] [address] [place] [address], [facility] ABS NEUTROPHILS 5.2 10*3/uL Normal 1.6-7.6 [facility] Comment on above: Performed By: #### 4 5506, 41393, 41450, 78810, 32306, 44840 #### [facility] [address] [place] [address], [facility] Basophils (Bld) [#/Vol] 0.0 10*3/uL Normal 0.0-0.2 [facility] Comment on above: Performed By: #### 4 5506, 54305, 93929, 16370, 72171, 28279 #### [facility] [address] [place] [address], [facility] Basophils/100 WBC (Bld) 0.4 % Normal 0.0-1.0 [facility] Comment on above: Performed By: #### 4 5506, 61694, 46598, 03386, 78708, 77488 #### [facility] [address] [place] [address], [facility] Eosinophils (Bld) [#/Vol] 0.2 10*3/uL Normal 0.0-0.5 [facility] Comment on above: Performed By: #### 4 5506, 60471, 80468, 27835, 54084, 78350 #### [facility] [address] [place] [address], [facility] Eosinophils/100 WBC (Bld) 2.9 % Normal 0.0-6.0 [facility] Comment on above: Performed By: #### 4 5506, 03891, 38181, 84399, 60119, 29424 #### [facility] [address] [place] [address], [place] Erythrocyte distribution width (RBC) [Ratio] 13.3 % Normal 11.5-15.0 [facility] Comment on above: Performed By: #### 4 5506, 72613, 59713, 85076, 18387, 26113 #### [facility] [address] Hematocrit (Bld) [Volume fraction] 37.1 % Low 39.0-50.0 [facility] Comment on above: Performed By: #### 4 5506, 80738, 72470, 10781, 37659, 21096 #### [facility] [address] Hemoglobin (Bld) [Mass/Vol] 11.7 g/dL Low 13.0-17.0 [facility] Comment on above: Performed By: #### 4 5506, 64512, 48981, 31864, 35861, 29802 #### [facility] [address] IMMATURE GRANS 0.9 % Normal 0.0-1.0 [facility] Comment on above: Performed By: #### 4 5506, 35696, 14165, 50023, 91246, 19270 #### [facility] [address] Lymphocytes (Bld) [#/Vol] 0.9 10*3/uL Low 1.2-4.0 [facility] Comment on above: Performed By: #### 4 5506, 86057, 62012, 57791, 05626, 91903 #### [facility] [address] Lymphocytes/100 WBC (Bld) 12.5 % Low 20.0-45.0 [facility] Comment on above: Performed By: #### 4 5506, 18686, 31114, 85051, 45334, 34644 #### [facility] [address] [place] [address], [facility] MCH (RBC) [Entitic mass] 29.0 pg Normal 27.0-33.0 [facility] Comment on above: Performed By: #### 4 5506, 11836, 55115, 25195, 05278, 66229 #### [facility] [address] MCHC (RBC) [Mass/Vol] 31.5 g/dL Low 32.0-35.0 [facility] Comment on above: Performed By: #### 4 5506, 74309, 92995, 35334, 71501, 97593 #### [facility] [address] [place] [address], [facility] MCV (RBC) [Entitic vol] 92.1 fL Normal 82.0-98.0 [facility] Comment on above: Performed By: #### 4 5506, 93018, 85141, 54317, 60357, 02128 #### [facility] [address] Monocytes (Bld) [#/Vol] 0.6 10*3/uL Normal 0.1-1.0 [facility] Comment on above: Performed By: #### 4 5506, 16489, 25170, 76488, 39504, 90329 #### [facility] [address] [facility] [place] [address], [facility] MONOS 8.6 % Normal 5.0-12.0 [facility] Comment on above: Performed By: #### 4 5506, 20023, 87286, 99312, 42003, 64783 #### [facility] [address] [place] [address], [facility] Neutrophils/100 WBC (Bld) 74.7 % High 40.0-72.0 [facility] Comment on above: Performed By: #### 4 5506, 61530, 89725, 85455, 41068, 22092 #### [facility] [address] [place] [address], [facility] Nucleated RBC/100 WBC (Bld) [Ratio] 0 % Normal 0-0 [facility] Comment on above: Performed By: #### 4 5506, 41101, 52756, 59872, 11730, 57007 #### [facility] [address] [facility] [place] [address], [facility] PLAT CNT 290 10*3/uL Normal 150-400 [facility] Comment on above: Performed By: #### 4 5506, 63086, 29093, 30875, 67285, 63056 #### [facility] [address] RBC (Bld) [#/Vol] 4.03 10*6/uL Low 4.20-5.70 [facility] Comment on above: Performed By: #### 4 5506, 57389, 78462, 43131, 74467, 82300 #### [facility] [address] WBC (Bld) [#/Vol] 6.96 10*3/uL Normal 4.00-10.60 [facility] Comment on above: Performed By: #### 4 5506, 50269, 71205, 53071, 50908, 75848 #### [facility] [address] COMP METABOLIC PANELon 04-19 Albumin [Mass/Vol] 4.3 g/dL Normal 3.5-5.7 [facility] Comment on above: Performed By: #### 4 5506, 24126, 52693, 20302, 49620, 57481 #### [facility] [address] [place] [address], [facility] ALKALINE PHOSPH 137 IU/L High 34-104 [facility] Comment on above: Performed By: #### 4 5506, 13537, 86272, 27764, 44950, 72058 #### [facility] [address] [place] [address], [place] ALT [Catalytic activity/Vol] 17 U/L Normal 7-52 [facility] Comment on above: Performed By: #### 4 5506, 54595, 83895, 71902, 76445, 00364 #### [facility] [address] [place] [address], [place] AST [Catalytic activity/Vol] 16 U/L Normal 13-39 [facility] Comment on above: Performed By: #### 4 5506, 03274, 44138, 68852, 55319, 03687 #### [facility] [address] [place] [address], [place] Bilirubin [Mass/Vol] 0.4 mg/dL Normal 0.3-1.0 [facility] Comment on above: Performed By: #### 4 5506, 32725, 93221, 67650, 50697, 78045 #### [facility] [address] [place] [address], [place] Calcium [Mass/Vol] 10.5 mg/dL High 8.6-10.3 [facility] Comment on above: Performed By: #### 4 5506, 45626, 71530, 17919, 57470, 84369 #### [facility] [address] [place] [address], [place] Chloride [Moles/Vol] 99 mmol/L Normal 98-107 [facility] Comment on above: Performed By: #### 4 5506, 27608, 11431, 63610, 37234, 98134 #### [facility] [address] [address], [place] CO2 [Moles/Vol] 27 mmol/L Normal 21-31 [facility] Comment on above: Performed By: #### 4 5506, 32960, 97795, 54707, 54752, 29050 #### [facility] [address] [place] [address], [place] Creatinine [Mass/Vol] 1.04 mg/dL Normal 0.70-1.30 [facility] Comment on above: Performed By: #### 4 5506, 20166, 72139, 26225, 13221, 48241 #### [facility] [address] [place] [address], [place] GFR/1.73 sq M.predicted among blacks MDRD (S/P/Bld) [Vol rate/Area] mL/min/{1.73_m2} Normal >60 [facility] Comment on above: Performed By: #### 4 5506, 56454, 29808, 37069, 12149, 03420 #### [facility] [address] [place] [address], [place] GFR/1.73 sq M.predicted among non-blacks MDRD (S/P/Bld) [Vol rate/Area] mL/min/{1.73_m2} Normal >60 [facility] Comment on above: Performed By: #### 4 5506, 19036, 09639, 37433, 81170, 06413 #### [facility] [address] [place] [address], [place] Glucose [Mass/Vol] 139 mg/dL High 70-100 [facility] Comment on above: Performed By: #### 4 5506, 88486, 22171, 95594, 41419, 97349 #### [facility] [address] [place] [address], [place] Potassium [Moles/Vol] 5.1 mmol/L Normal 3.5-5.1 [facility] Comment on above: Performed By: #### 4 5506, 50536, 75089, 59239, 22295, 41103 #### [facility] [address] [place] [address], [place] Protein [Mass/Vol] 6.5 g/dL Normal 6.0-8.3 [facility] Comment on above: Performed By: #### 4 5506, 66798, 74679, 32179, 67815, 27091 #### [facility] [address] [place] [address], [facility] Sodium [Moles/Vol] 133 mmol/L Low 136-145 [facility] Comment on above: Performed By: #### 4 5506, 45241, 57875, 44251, 43741, 17476 #### [facility] [address] [place] [address], [facility] Urea nitrogen [Mass/Vol] 11 mg/dL Normal 7-25 [facility] Comment on above: Performed By: #### 4 5506, 97499, 68321, 47945, 18224, 98417 #### [facility] [address] [place] [address], [facility] DIRECT BILIon 04-19-2021 Bilirubin.direct [Mass/Vol] 0.1 mg/dL Normal 0.0-0.2 [facility] Comment on above: Performed By: #### 4 5506, 84750, 32820, 79506, 96833, 37666 #### [facility] [address] [place] [address], [facility] LIPID PROFILEon 04-19-2021 Cholesterol [Mass/Vol] 82 mg/dL Low 120-200 [facility] Comment on above: Result Comment: CHOL ESTEROL REFERENCE RANGE: 20 YEARS AND OLDER CARDIOVASCULAR RISK Less than 200 mg/dl Low Risk 200 to 239 mg/dl Borderline Risk 240 mg/dl and greater High Risk Performed By: #### 4 5506, 43697, 50464, 11088, 63644, 10169 #### [facility] [address] [place] [address], [facility] Cholesterol in HDL [Mass/Vol] 38 mg/dL Normal 23-92 [facility] Comment on above: Result Comment: Slig ht variation in normal range could be due to gender and/or age. HDL CHOLESTEROL REFERENCE RANGE: 20 years and older Cardiovascular Risk > or =60 mg/dL Desirable 40 TO 59 mg/dL Low Risk <40 mg/dL High Risk Performed By: #### 4 5506, 51775, 07138, 96425, 34383, 14120 #### [facility] [address] [place] [address], [facility] Cholesterol in LDL [Mass/Vol] 25 mg/dL Normal 0-130 [facility] Comment on above: Result Comment: LDL IS A CALCULATION LDL IS ONLY VALID IF THE TRIG IS LESS THAN 400. Performed By: #### 4 5506, 18892, 31696, 15833, 19410, 05315 #### [facility] [address] [place] [address], [facility] Cholesterol.total/Cho lesterol in HDL [Mass ratio] 2.2 {ratio} Normal .0-4.5 [facility] Comment on above: Performed By: #### 4 5506, 44807, 68606, 11941, 65188, 15645 #### [facility] [address] [place] [address], [facility] NON-HDL CHOLESTEROL 44 mg/dL Normal [facility] Comment on above: Performed By: #### 4 5506, 26293, 95693, 04605, 75921, 62768 #### [facility] [address] [place] [address], [facility] Triglyceride [Mass/Vol] 93 mg/dL Normal 40-149 [facility] Comment on above: Result Comment: TRIG LYCERIDE REFERENCE RANGE: 20 YEARS AND OLDER CARDIOVASCULAR RISK LESS THAN 150 mg/dl LOW RISK 150 TO 199 mg/dl BORDERLINE RISK 200 mg/dl AND GREATER HIGH RISK Performed By: #### 4 5506, 87027, 19080, 31900, 70421, 81550 #### [facility] [address] [place] [address], [facility] VLDL CHOL 19 mg/dL Normal 0-40 [facility] Comment on above: Performed By: #### 4 5506, 44474, 78545, 40238, 67473, 79505 #### [facility] [address] [place] [address], [facility] MAGNESIUM BLOODon 04-19-2021 Magnesium [Mass/Vol] 1.8 mg/dL Low 1.9-2.7 [facility] Comment on above: Performed By: #### 4 5506, 17792, 65509, 23089, 27763, 54563 #### [facility] [address] [place] [address], [facility] PHOSPHORUS BLOODon Phosphate [Mass/Vol] 3.0 mg/dL Normal 2.5-5.0 [facility] Comment on above: Performed By: #### 4 5506, 64220, 48835, 88028, 69522, 40042 #### [facility] [address] [place] [address], [facility] PROSPERAon 04-19-2021 PROSPERA KIT Results to be mailed directly to physician's office by reference lab. Normal [facility] Comment on above: Result Comment: Test performed by [id number] [place] [address] No result expected. For billing and tracking purposes only. Specimen collected for transplant patient and sent to [facility] per Dr instructions. No charge. Performed By: #### 4 5506, 60812, 04990, 22169, 38284, 08644 #### [facility] [address] RESULT Results to be mailed directly to physician's office by reference lab. Normal [facility] Comment on above: Performed By: #### 4 5506, 43230, 90573, 18216, 08166, 32407 #### [facility] [address] [place] [address], [facility] TACROLIMUSon 04-19-2021 Tacrolimus (Bld) [Mass/Vol] 7.7 ng/mL Normal 5.0-20.0 [facility] Comment on above: Result Comment: The [facility] Tacrolimus assay is a delayed one-step immunoassay for the quantitative determination of tacrolimus in human whole blood using the chemiluminescent microparticle immunoassay (CMIA) technology with flexible assay protocols, referred to as Chemiflex. Performed By: #### 4 5506, 37605, 97827, 73663, 96152, 91185 #### [facility] [address] URIC ACID BLOODon 04-19-2021 Urate [Mass/Vol] 7.9 mg/dL High 4.4-7.6 [facility] Comment on above: Performed By: #### 4 5506, 88459, 43880, 90670, 59789, 20201 #### [facility] [address] CBC W/DIFFon 04-11-2021 ABS IMM GRANS 0.0 10*3/uL Normal 0.0-0.2 [facility] Comment on above: Performed By: #### 4 5506, 79523, 66605, 35669, 43020, 63665 #### [facility] [address] ABS NEUTROPHILS 4.5 10*3/uL Normal 1.6-7.6 [facility] Comment on above: Performed By: #### 4 5506, 16675, 59260, 75809, 98683, 37131 #### [facility] [address] Basophils (Bld) [#/Vol] 0.0 10*3/uL Normal 0.0-0.2 [facility] Comment on above: Performed By: #### 4 5506, 37276, 40175, 34134, 16150, 59388 #### [facility] [address] Basophils/100 WBC (Bld) 0.5 % Normal 0.0-1.0 [facility] Comment on above: Performed By: #### 4 5506, 41094, 96334, 30361, 00742, 16825 #### [facility] [address] [place] [address], [facility] Eosinophils (Bld) [#/Vol] 0.2 10*3/uL Normal 0.0-0.5 [facility] Comment on above: Performed By: #### 4 5506, 83538, 96787, 68697, 41727, 95839 #### [facility] [address] [place] [address], [facility] Eosinophils/100 WBC (Bld) 3.1 % Normal 0.0-6.0 [facility] Comment on above: Performed By: #### 4 5506, 01044, 62065, 24915, 41247, 22619 #### [facility] [address] Erythrocyte distribution width (RBC) [Ratio] 13.4 % Normal 11.5-15.0 [facility] Comment on above: Performed By: #### 4 5506, 80488, 09657, 94500, 55048, 65192 #### [facility] [address] [address], [facility] Hematocrit (Bld) [Volume fraction] 35.5 % Low 39.0-50.0 [facility] Comment on above: Performed By: #### 4 5506, 94599, 03114, 55966, 02172, 58580 #### [facility] [address] [place] [address], [facility] Hemoglobin (Bld) [Mass/Vol] 11.7 g/dL Low 13.0-17.0 [facility] Comment on above: Performed By: #### 4 5506, 31593, 55953, 05138, 29365, 64765 #### [facility] [address] [place] [address], [facility] IMMATURE GRANS 0.6 % Normal 0.0-1.0 [facility] Comment on above: Performed By: #### 4 5506, 90696, 34496, 94667, 47229, 71414 #### [facility] [address] [place] [address], [facility] Lymphocytes (Bld) [#/Vol] 0.8 10*3/uL Low 1.2-4.0 [facility] Comment on above: Performed By: #### 4 5506, 94572, 67867, 60600, 13429, 77792 #### [facility] [address] [place] [address], [facility] Lymphocytes/100 WBC (Bld) 12.9 % Low 20.0-45.0 [facility] Comment on above: Performed By: #### 4 5506, 29015, 56662, 16925, 89424, 89148 #### [facility] [address] [facility] [place] [address], [facility] MCH (RBC) [Entitic mass] 29.2 pg Normal 27.0-33.0 [facility] Comment on above: Performed By: #### 4 5506, 68406, 03022, 88789, 01973, 33209 #### [facility] [address] [facility] [place] [address], [facility] MCHC (RBC) [Mass/Vol] 33.0 g/dL Normal 32.0-35.0 [facility] Comment on above: Performed By: #### 4 5506, 39120, 10733, 39251, 53366, 74525 #### [facility] [address] [place] [address], [facility] MCV (RBC) [Entitic vol] 88.5 fL Normal 82.0-98.0 [facility] Comment on above: Performed By: #### 4 5506, 87854, 69373, 42551, 92201, 02505 #### [facility] [address] [place] [address], [facility] Monocytes (Bld) [#/Vol] 0.6 10*3/uL Normal 0.1-1.0 [facility] Comment on above: Performed By: #### 4 5506, 09312, 03872, 06944, 70366, 06616 #### [facility] [address] [place] [address], [facility] MONOS 10.3 % Normal 5.0-12.0 [facility] Comment on above: Performed By: #### 4 5506, 93288, 82193, 82729, 33572, 79874 #### [facility] [address] [place] [address], [facility] Neutrophils/100 WBC (Bld) 72.6 % High 40.0-72.0 [facility] Comment on above: Performed By: #### 4 5506, 80406, 88516, 17098, 05401, 18996 #### [facility] [address] [place] [address], [place] Nucleated RBC/100 WBC (Bld) [Ratio] 0 % Normal 0-0 [facility] Comment on above: Performed By: #### 4 5506, 49026, 17047, 35769, 78422, 32293 #### [facility] [address] [place] [address], [place] PLAT CNT 272 10*3/uL Normal 150-400 [facility] Comment on above: Performed By: #### 4 5506, 88490, 04390, 44230, 70248, 17941 #### [facility] [address] [place] [address], [place] RBC (Bld) [#/Vol] 4.01 10*6/uL Low 4.20-5.70 [facility] Comment on above: Performed By: #### 4 5506, 36698, 24182, 34678, 31509, 21505 #### [facility] [address] [place] [address], [place] WBC (Bld) [#/Vol] 6.22 10*3/uL Normal 4.00-10.60 [facility] Comment on above: Performed By: #### 4 5506, 99225, 47218, 76829, 09495, 29406 #### [facility] [address] [place] [address], [facility] COMP METABOLIC PANELon 04-11 Albumin [Mass/Vol] 4.3 g/dL Normal 3.5-5.7 [facility] Comment on above: Performed By: #### 4 5506, 84991, 91635, 60319, 58457, 85152 #### [facility] [address] [place] [id number], [facility] ALKALINE PHOSPH 115 IU/L High 34-104 [facility] Comment on above: Performed By: #### 4 5506, 58436, 40198, 95440, 33949, 96025 #### [facility] [address] [place] [address], [facility] ALT [Catalytic activity/Vol] 16 U/L Normal 7-52 [facility] Comment on above: Performed By: #### 4 5506, 92279, 88593, 40089, 72664, 25469 #### [facility] [address] [place] [address], [facility] AST [Catalytic activity/Vol] 15 U/L Normal 13-39 [facility] Comment on above: Performed By: #### 4 5506, 29242, 89642, 27046, 75376, 57699 #### [facility] [address] [place] [address], [facility] Bilirubin [Mass/Vol] 0.6 mg/dL Normal 0.3-1.0 [facility] Comment on above: Performed By: #### 4 5506, 26873, 05259, 25654, 28015, 06095 #### [facility] [address] [place] [address], [facility] Calcium [Mass/Vol] 10.3 mg/dL Normal 8.6-10.3 [facility] Comment on above: Performed By: #### 4 5506, 36999, 70770, 24563, 71086, 88674 #### [facility] [address] [place] [address], [place] Chloride [Moles/Vol] 97 mmol/L Low 98-107 [facility] Comment on above: Performed By: #### 4 5506, 25443, 71935, 30455, 90849, 46543 #### [facility] [address] [place] [address], [place] CO2 [Moles/Vol] 26 mmol/L Normal 21-31 [facility] Comment on above: Performed By: #### 4 5506, 37298, 55247, 99569, 73026, 88244 #### [facility] [address] [place] [address], [place] Creatinine [Mass/Vol] 0.93 mg/dL Normal 0.70-1.30 [facility] Comment on above: Performed By: #### 4 5506, 78635, 70028, 14482, 71104, 28893 #### [facility] [address] [place] [address], [place] GFR/1.73 sq M.predicted among blacks MDRD (S/P/Bld) [Vol rate/Area] mL/min/{1.73_m2} Normal >60 [facility] Comment on above: Performed By: #### 4 5506, 82847, 24439, 94387, 83898, 37842 #### [facility] [address] [place] [address], [place] GFR/1.73 sq M.predicted among non-blacks MDRD (S/P/Bld) [Vol rate/Area] mL/min/{1.73_m2} Normal >60 [facility] Comment on above: Performed By: #### 4 5506, 15286, 17385, 87198, 52738, 40827 #### [facility] [address] [place] [address], [facility] Glucose [Mass/Vol] 136 mg/dL High 70-100 [facility] Comment on above: Performed By: #### 4 5506, 30173, 22146, 96362, 04428, 43836 #### [facility] [address] [place] [address], [facility] Potassium [Moles/Vol] 5.2 mmol/L High 3.5-5.1 [facility] Comment on above: Performed By: #### 4 5506, 41276, 50652, 91197, 49678, 54458 #### [facility] [address] [place] [address], [facility] Protein [Mass/Vol] 6.7 g/dL Normal 6.0-8.3 [facility] Comment on above: Performed By: #### 4 5506, 48748, 70160, 71576, 95023, 13407 #### [facility] [address] [place] [address], [facility] Sodium [Moles/Vol] 129 mmol/L Low 136-145 [facility] Comment on above: Performed By: #### 4 5506, 23560, 01056, 70651, 20814, 17391 #### [facility] [address] [place] [address], [facility] Urea nitrogen [Mass/Vol] 10 mg/dL Normal 7-25 [facility] Comment on above: Performed By: #### 4 5506, 29371, 07551, 02282, 43255, 87140 #### [facility] [address] [place] [address], [place] DIRECT BILIon 04-11-2021 Bilirubin.direct [Mass/Vol] 0.2 mg/dL Normal 0.0-0.2 [facility] Comment on above: Performed By: #### 4 5506, 85168, 22904, 76334, 66419, 60828 #### [facility] [address] [place] [address], [place] LIPID PROFILEon 04-11-2021 Cholesterol [Mass/Vol] 84 mg/dL Low 120-200 [facility] Comment on above: Result Comment: CHOL ESTEROL REFERENCE RANGE: 20 YEARS AND OLDER CARDIOVASCULAR RISK Less than 200 mg/dl Low Risk 200 to 239 mg/dl Borderline Risk 240 mg/dl and greater High Risk Performed By: #### 4 5506, 36310, 32598, 29011, 14393, 20924 #### [facility] [address] [place] [address], [place] Cholesterol in HDL [Mass/Vol] 41 mg/dL Normal 23-92 [facility] Comment on above: Result Comment: Slig ht variation in normal range could be due to gender and/or age. HDL CHOLESTEROL REFERENCE RANGE: 20 years and older Cardiovascular Risk > or =60 mg/dL Desirable 40 TO 59 mg/dL Low Risk <40 mg/dL High Risk Performed By: #### 4 5506, 10579, 35141, 04291, 59466, 56276 #### [facility] [address] [place] [address], [place] Cholesterol in LDL [Mass/Vol] 34 mg/dL Normal 0-130 [facility] Comment on above: Result Comment: LDL IS A CALCULATION LDL IS ONLY VALID IF THE TRIG IS LESS THAN 400. Performed By: #### 4 5506, 38163, 67717, 72625, 88229, 79504 #### [facility] [address] [place] [address], [place] Cholesterol.total/Cho lesterol in HDL [Mass ratio] 2.0 {ratio} Normal .0-4.5 [facility] Comment on above: Performed By: #### 4 5506, 16032, 30777, 01726, 75217, 18330 #### [facility] [address] NON-HDL CHOLESTEROL 43 mg/dL Normal [facility] Comment on above: Performed By: #### 4 5506, 10212, 43997, 76773, 56078, 67469 #### [facility] [address] [facility] Triglyceride [Mass/Vol] 47 mg/dL Normal 40-149 [facility] Comment on above: Result Comment: TRIG LYCERIDE REFERENCE RANGE: 20 YEARS AND OLDER CARDIOVASCULAR RISK LESS THAN 150 mg/dl LOW RISK 150 TO 199 mg/dl BORDERLINE RISK 200 mg/dl AND GREATER HIGH RISK Performed By: #### 4 5506, 33976, 95980, 10307, 14549, 60902 #### [facility] [address] VLDL CHOL 9 mg/dL Normal 0-40 [facility] Comment on above: Performed By: #### 4 5506, 94406, 90696, 99793, 11982, 56816 #### [facility] [address] [facility] [place] [address], [facility] MAGNESIUM BLOODon 04-11-2021 Magnesium [Mass/Vol] 1.3 mg/dL Low 1.9-2.7 [facility] Comment on above: Performed By: #### 4 5506, 54423, 38646, 12903, 86873, 13742 #### [facility] [address] [facility] [place] [address], [facility] PHOSPHORUS BLOODon Phosphate [Mass/Vol] 2.6 mg/dL Normal 2.5-5.0 [facility] Comment on above: Performed By: #### 4 5506, 13422, 15549, 11992, 29006, 48203 #### [facility] [address] [place] [address], [facility] TACROLIMUSon 04-11-2021 Tacrolimus (Bld) [Mass/Vol] 8.3 ng/mL Normal 5.0-20.0 [facility] Comment on above: Result Comment: The [facility] Tacrolimus assay is a delayed one-step immunoassay for the quantitative determination of tacrolimus in human whole blood using the chemiluminescent microparticle immunoassay (CMIA) technology with flexible assay protocols, referred to as Chemiflex. Performed By: #### 4 5506, 77636, 50650, 90683, 29281, 75941 #### [facility] [address] [place] [address], [facility] URIC ACID BLOODon 04-11-2021 Urate [Mass/Vol] 8.4 mg/dL High 4.4-7.6 [facility] Comment on above: Performed By: #### 4 5506, 80858, 23386, 35010, 28793, 38997 #### [facility] [address] BK VIRUS QUANTITATION FOR PL ASMAon 02-16-2021 BKV Plasma Quantitation by PCR Not detected Normal [facility] Comment on above: Result Comment: Meth od: BK virus was measured by quantitative polymerase chain reaction using a fluorescent hydrolysis probe targeting the polyomavirus BK [employer]ICER-1 gene. The lower limit of quantitation of the assay is 500 copies of BK genome per milliliter of plasma or urine, and any detectable BK DNA below that level is reported as: Detected, <500 copies/ml. Serial BK virus measurement can be used to monitor disease activity. (Reference: Katina ramirezl. J CLIN MICRO 2004; 42:3708-1211). This test was developed and its performance characteristics determined by the [facility]. It has not been approved by the [place] Food and Drug Administration. However, such approval is not required for clinical implementation, and test results have been shown to be clinically useful. This laboratory is CAP accredited and CLIA certified to perform high complexity testing. Performed By: #### 4 5506, 51051, 37870, 89147, 43890, 75649 #### [facility] [address] [place] [address], [facility] BKV Plasma Quantitation Log by PCR Not detected Normal [facility] Comment on above: Performed By: #### 4 5506, 09588, 37808, 47641, 21598, 14925 #### [facility] [address] [place] [address], [facility] CBC W/DIFFon 02-16-2021 ABS IMM GRANS 0.1 10*3/uL Normal 0.0-0.2 [facility] Comment on above: Performed By: #### 4 5506, 80621, 57839, 10382, 17452, 52809 #### [facility] [address] [place] [address], [facility] ABS NEUTROPHILS 5.8 10*3/uL Normal 1.6-7.6 [facility] Comment on above: Performed By: #### 4 5506, 93040, 98742, 57293, 90414, 11572 #### [facility] [address] [place] [address], [facility] Basophils (Bld) [#/Vol] 0.0 10*3/uL Normal 0.0-0.2 [facility] Comment on above: Performed By: #### 4 5506, 41648, 43815, 76384, 63551, 16654 #### [facility] [address] [place] [address], [facility] Basophils/100 WBC (Bld) 0.4 % Normal 0.0-1.0 [facility] Comment on above: Performed By: #### 4 5506, 57698, 61279, 03665, 19897, 23078 #### [facility] [address] [place] [address], [facility] Eosinophils (Bld) [#/Vol] 0.3 10*3/uL Normal 0.0-0.5 [facility] Comment on above: Performed By: #### 4 5506, 23052, 04084, 94185, 05785, 40524 #### [facility] [address] [facility] [place] [address], [facility] Eosinophils/100 WBC (Bld) 3.5 % Normal 0.0-6.0 [facility] Comment on above: Performed By: #### 4 5506, 19358, 08281, 77087, 92918, 26575 #### [facility] [address] Erythrocyte distribution width (RBC) [Ratio] 13.6 % Normal 11.5-15.0 [facility] Comment on above: Performed By: #### 4 5506, 42752, 34369, 87778, 53735, 41972 #### [facility] [address] Hematocrit (Bld) [Volume fraction] 34.1 % Low 39.0-50.0 [facility] Comment on above: Performed By: #### 4 5506, 53235, 74559, 14870, 74032, 01788 #### [facility] [address] Hemoglobin (Bld) [Mass/Vol] 11.6 g/dL Low 13.0-17.0 [facility] Comment on above: Performed By: #### 4 5506, 10695, 02172, 51632, 55386, 74927 #### [facility] [address] [facility] IMMATURE GRANS 0.8 % Normal 0.0-1.0 [facility] Comment on above: Performed By: #### 4 5506, 24806, 70805, 54235, 84725, 87179 #### [facility] [address] [facility] [place] [address], [facility] Lymphocytes (Bld) [#/Vol] 0.7 10*3/uL Low 1.2-4.0 [facility] Comment on above: Performed By: #### 4 5506, 91746, 98309, 96950, 86315, 30316 #### [facility] [address] Lymphocytes/100 WBC (Bld) 9.2 % Low 20.0-45.0 [facility] Comment on above: Performed By: #### 4 5506, 91373, 33384, 05838, 89395, 22271 #### [facility] [address] [facility] [place] [address], [facility] MCH (RBC) [Entitic mass] 29.5 pg Normal 27.0-33.0 [facility] Comment on above: Performed By: #### 4 5506, 92428, 28585, 20007, 65562, 66341 #### [facility] [address] MCHC (RBC) [Mass/Vol] 34.0 g/dL Normal 32.0-35.0 [facility] Comment on above: Performed By: #### 4 5506, 22099, 16284, 52767, 86152, 57202 #### [facility] [address] [place] [address], [facility] MCV (RBC) [Entitic vol] 86.8 fL Normal 82.0-98.0 [facility] Comment on above: Performed By: #### 4 5506, 39161, 48679, 85506, 82344, 79854 #### [facility] [address] [place] [address], [facility] Monocytes (Bld) [#/Vol] 0.8 10*3/uL Normal 0.1-1.0 [facility] Comment on above: Performed By: #### 4 5506, 04964, 44357, 83967, 52047, 12072 #### [facility] [address] [place] [address], [facility] MONOS 10.3 % Normal 5.0-12.0 [facility] Comment on above: Performed By: #### 4 5506, 80524, 31226, 71444, 44982, 97071 #### [facility] [address] [place] [address], [facility] Neutrophils/100 WBC (Bld) 75.8 % High 40.0-72.0 [facility] Comment on above: Performed By: #### 4 5506, 16719, 09727, 54663, 23730, 67860 #### [facility] [address] Nucleated RBC/100 WBC (Bld) [Ratio] 0 % Normal 0-0 [facility] Comment on above: Performed By: #### 4 5506, 98559, 80315, 05955, 11363, 55376 #### [facility] [address] [place] [address], [facility] PLAT CNT 256 10*3/uL Normal 150-400 [facility] Comment on above: Performed By: #### 4 5506, 98580, 88505, 39261, 30446, 83750 #### [facility] [address] RBC (Bld) [#/Vol] 3.93 10*6/uL Low 4.20-5.70 [facility] Comment on above: Performed By: #### 4 5506, 34087, 79414, 65522, 20950, 64833 #### [facility] [address] [place] [address], [facility] WBC (Bld) [#/Vol] 7.65 10*3/uL Normal 4.00-10.60 [facility] Comment on above: Performed By: #### 4 5506, 47197, 10796, 78245, 43395, 73594 #### [facility] [address] [place] [address], [facility] COMP METABOLIC PANELon 02-16 Albumin [Mass/Vol] 4.6 g/dL Normal 3.5-5.7 [facility] Comment on above: Performed By: #### 0 0121, 97859, 91718, 15927, 52601, 86214, 69416, 83843 #### [facility] [address] [place] [id number], [facility] ALKALINE PHOSPH 136 IU/L High 34-104 [facility] Comment on above: Performed By: #### 0 0121, 87797, 20236, 49185, 49694, 00649, 01358, 23583 #### [facility] [address] [place] [address], [facility] ALT [Catalytic activity/Vol] 22 U/L Normal 7-52 [facility] Comment on above: Performed By: #### 0 0121, 71272, 83797, 59206, 17797, 37948, 06614, 32290 #### [facility] [address] [facility] [place] [address], [facility] AST [Catalytic activity/Vol] 18 U/L Normal 13-39 [facility] Comment on above: Performed By: #### 0 0121, 59883, 04690, 31558, 52228, 70924, 12345, 86104 #### [facility] [address] [facility] [place] [address], [facility] Bilirubin [Mass/Vol] 0.5 mg/dL Normal 0.3-1.0 [facility] Comment on above: Performed By: #### 0 0121, 82162, 24003, 84605, 76628, 23921, 70102, 10362 #### [facility] [address] [place] [address], [place] Calcium [Mass/Vol] 10.5 mg/dL High 8.6-10.3 [facility] Comment on above: Performed By: #### 0 0121, 33059, 14854, 07602, 17252, 48252, 90067, 34235 #### [facility] [address] [place] [address], [facility] Chloride [Moles/Vol] 94 mmol/L Low 98-107 [facility] Comment on above: Performed By: #### 0 0121, 39024, 86067, 07517, 30826, 35693, 01919, 77254 #### [facility] [address] [place] [address], [facility] CO2 [Moles/Vol] 28 mmol/L Normal 21-31 [facility] Comment on above: Performed By: #### 0 0121, 78646, 21134, 51567, 45107, 85664, 80491, 46180 #### [facility] [address] [place] [address], [facility] Creatinine [Mass/Vol] 0.93 mg/dL Normal 0.70-1.30 [facility] Comment on above: Performed By: #### 0 0121, 37385, 38634, 22326, 95570, 44658, 07667, 89822 #### [facility] [address] [place] [address], [facility] GFR/1.73 sq M.predicted among blacks MDRD (S/P/Bld) [Vol rate/Area] mL/min/{1.73_m2} Normal >60 [facility] Comment on above: Performed By: #### 0 0121, 39030, 88541, 30630, 95398, 17524, 88327, 54427 #### [facility] [address] [place] [address], [place] GFR/1.73 sq M.predicted among non-blacks MDRD (S/P/Bld) [Vol rate/Area] mL/min/{1.73_m2} Normal >60 [facility] Comment on above: Performed By: #### 0 0121, 74154, 02802, 20410, 33562, 68854, 61377, 81373 #### [facility] [address] [place] [address], [place] Glucose [Mass/Vol] 147 mg/dL High 70-100 [facility] Comment on above: Performed By: #### 0 0121, 14131, 79834, 39789, 32924, 16906, 50256, 50150 #### [facility] [address] [place] [address], [facility] Potassium [Moles/Vol] 4.6 mmol/L Normal 3.5-5.1 [facility] Comment on above: Performed By: #### 0 0121, 86635, 22418, 18025, 25660, 86534, 84799, 39272 #### [facility] [address] [place] [address], [facility] Protein [Mass/Vol] 7.2 g/dL Normal 6.0-8.3 [facility] Comment on above: Performed By: #### 0 0121, 96052, 74343, 73617, 82982, 02808, 08430, 72858 #### [facility] [address] [place] [address], [place] Sodium [Moles/Vol] 129 mmol/L Low 136-145 [facility] Comment on above: Performed By: #### 0 0121, 42101, 88912, 50744, 82212, 62396, 37229, 80537 #### [facility] [address] [place] [address], [place] Urea nitrogen [Mass/Vol] 15 mg/dL Normal 7-25 [facility] Comment on above: Performed By: #### 0 0121, 76511, 67099, 25231, 53916, 72331, 21083, 17013 #### [facility] [address] [place] [address], [place] DIRECT BILIon 02-16-2021 Bilirubin.direct [Mass/Vol] 0.2 mg/dL Normal 0.0-0.2 [facility] Comment on above: Performed By: #### 4 5506, 83325, 99845, 00531, 20988, 45706 #### [facility] [address] [place] [address], [facility] HEMOGLOBIN A1Con 02-16-2021 Glucose [Moles/Vol] 154 mmol/L Normal [facility] Comment on above: Performed By: #### 4 5506, 58553, 99458, 08846, 88982, 39016 #### [facility] [address] [place] [address], [facility] HbA1c (Bld) [Mass fraction] 7.0 % High 4.0-6.0 [facility] Comment on above: Performed By: #### 4 5506, 74093, 20004, 83281, 19835, 98871 #### [facility] [address] [facility] [address] LIPID PROFILEon 02-16-2021 Cholesterol [Mass/Vol] 78 mg/dL Low 120-200 [facility] Comment on above: Result Comment: CHOL ESTEROL REFERENCE RANGE: 20 YEARS AND OLDER CARDIOVASCULAR RISK Less than 200 mg/dl Low Risk 200 to 239 mg/dl Borderline Risk 240 mg/dl and greater High Risk Performed By: #### 0 0121, 43174, 62673, 64594, 26595, 23165, 20612, 75682 #### [facility] [address] Cholesterol in HDL [Mass/Vol] 41 mg/dL Normal 23-92 [facility] Comment on above: Result Comment: Slig ht variation in normal range could be due to gender and/or age. HDL CHOLESTEROL REFERENCE RANGE: 20 years and older Cardiovascular Risk > or =60 mg/dL Desirable 40 TO 59 mg/dL Low Risk <40 mg/dL High Risk Performed By: #### 0 0121, 79426, 37026, 24086, 30012, 60966, 96474, 08474 #### [facility] [address] [facility] [place] [address], [facility] Cholesterol in LDL [Mass/Vol] 28 mg/dL Normal 0-130 [facility] Comment on above: Result Comment: LDL IS A CALCULATION LDL IS ONLY VALID IF THE TRIG IS LESS THAN 400. Performed By: #### 0 0121, 54657, 36710, 81433, 41974, 67681, 12787, 34643 #### [facility] [address] [place] [address], [facility] Cholesterol.total/Cho lesterol in HDL [Mass ratio] 1.9 {ratio} Normal .0-4.5 [facility] Comment on above: Performed By: #### 0 0121, 20385, 91539, 80859, 96753, 88847, 08607, 24405 #### [facility] [address] [place] [address], [facility] NON-HDL CHOLESTEROL 37 mg/dL Normal [facility] Comment on above: Performed By: #### 0 0121, 87343, 86240, 85771, 35650, 40127, 42191, 69378 #### [facility] [address] Triglyceride [Mass/Vol] 44 mg/dL Normal 40-149 [facility] Comment on above: Result Comment: TRIG LYCERIDE REFERENCE RANGE: 20 YEARS AND OLDER CARDIOVASCULAR RISK LESS THAN 150 mg/dl LOW RISK 150 TO 199 mg/dl BORDERLINE RISK 200 mg/dl AND GREATER HIGH RISK Performed By: #### 0 0121, 34365, 09478, 87229, 57073, 65357, 01019, 11420 #### [facility] [address] [facility] [place] [address], [facility] VLDL CHOL 9 mg/dL Normal 0-40 [facility] Comment on above: Performed By: #### 0 0121, 34904, 66942, 07566, 24035, 44028, 58274, 93557 #### [facility] [address] [facility] [place] [address], [facility] MAGNESIUM BLOODon 02-16-2021 Magnesium [Mass/Vol] 1.5 mg/dL Low 1.9-2.7 [facility] Comment on above: Performed By: #### 4 5506, 54121, 98177, 24966, 30040, 55166 #### [facility] [address] [place] [address], [facility] PHOSPHORUS BLOODon Phosphate [Mass/Vol] 2.4 mg/dL Low 2.5-5.0 [facility] Comment on above: Performed By: #### 0 0121, 93198, 38119, 17975, 21977, 63655, 79641, 43500 #### [facility] [address] [place] [address], [facility] PROSPERAon 02-16-2021 PROSPERA KIT Results to be mailed directly to physician's office by reference lab. Normal [facility] Comment on above: Result Comment: Test performed by [id number] [place] [address] No result expected. For billing and tracking purposes only. Specimen collected for transplant patient and sent to [facility] per Dr instructions. No charge. Performed By: #### 4 5506, 38653, 13511, 58847, 76282, 00647 #### [facility] [address] RESULT Results to be mailed directly to physician's office by reference lab. Normal [facility] Comment on above: Performed By: #### 4 5506, 91060, 40563, 53754, 69310, 62702 #### [facility] [address] [facility] [place] [address], [facility] PTH INTACTon 02-16-2021 PTH INTACT 123 pg/mL High 12-88 [facility] Comment on above: Performed By: #### 4 5506, 20206, 71470, 11139, 49587, 26647 #### [facility] [address] [place] [address], [facility] SINGLE ANTIGEN CLASS 1on METHOD Class I Single Antigen Normal [facility] Comment on above: Order Comment: Some [...] to frequency. Performed By: #### 4 5506, 81486, 99823, 35443, 39776, 24150 #### [facility] [address] SINGLE ANTIGEN CLASS 2on COMMENTS Normal [facility] Comment on above: Order Comment: Some [...] Antigen Microbeads Performed By: #### 4 5506, 94395, 25652, 71092, 00859, 75817 #### [facility] [address] Result Comment: No C lass I donor specific antibody identified Class I Antigen Microbeads METHOD Class II Single Antigen Normal [facility] Comment on above: Order Comment: Some [...] to frequency. Performed By: #### 4 5506, 81467, 84633, 36172, 32360, 91241 #### [facility] [address] SIGNED BY Normal [facility] Comment on above: Order Comment: Some [...] frequency. Result Comment: Jose A Lara, MS,CHT(IRINEO),MT(ASCP) [facility], Transplant Immunology Performed By: #### 4 5506, 84053, 31693, 80720, 42107, 93968 #### [facility] [address] TACROLIMUSon 02-16-2021 Tacrolimus (Bld) [Mass/Vol] 7.0 ng/mL Normal 5.0-20.0 [facility] Comment on above: Result Comment: The [facility] Tacrolimus assay is a delayed one-step immunoassay for the quantitative determination of tacrolimus in human whole blood using the chemiluminescent microparticle immunoassay (CMIA) technology with flexible assay protocols, referred to as Chemiflex. Performed By: #### 4 5506, 24381, 05140, 43981, 73408, 00435 #### [facility] [address] TESTOSTERONE, FREE+SHBG+TOTA L ILon 02-16-2021 [place] Normal [facility] Comment on above: Result Comment: Test Performed by [employer] [address] [place] [address] - Released 02/16/2021 18:49 SEX HORM BIND GLOB 52 nmol/L Normal 11-80 [facility] Testosterone [Mass/Vol] 399 ng/dL Normal 220-1000 [facility] TESTOSTERONE, FREE 60.0 pg/mL Normal 47-244 [facility] Comment on above: Result Comment: The concentration of free testosterone is derived from a mathematical expression based on the constant for the binding of testosterone to albumin and/or sex hormone binding globulin. URIC ACID BLOODon 02-16-2021 Urate [Mass/Vol] 8.0 mg/dL High 4.4-7.6 [facility] Comment on above: Performed By: #### 0 0121, 21436, 25700, 49632, 05362, 75315, 91111, 01438 #### [facility] [address] [facility] [address] VITAMIN D 25-HYDROXYon 02-16 VITAMIN D 25-OH 35.1 ng/mL Normal 30.0-80.0 [facility] Comment on above: Result Comment: >80. 0 Toxicity possible Performed By: #### 4 5506, 32748, 87850, 13362, 63634, 31576 #### [facility] [address] [facility] [address] Vital Signs Date Time Vital Sign Value Performing Clinician Facility 03-05-2022 09:30-0400 Diastolic blood pressure 74 mm[Hg] MD Jericho Mccarthy Work Phone: [facility] 03-05-2022 09:30-0400 Heart rate 58 /min MD Jericho Mccarthy Work Phone: [facility] 03-05-2022 09:30-0400 Respiratory rate 18 /min MD Jericho Mccarthy Work Phone: [facility] 03-05-2022 09:30-0400 SaO2% (BldA) [Mass fraction] 99 % MD Jericho Mccarthy Work Phone: [facility] 03-05-2022 09:30-0400 Systolic blood pressure 133 mm[Hg] MD Jericho Mccarthy Work Phone: [facility] 03-05-2022 07:01-0400 Body height 167.64 cm MD Jericho Mccarthy Work Phone: [facility] 03-05-2022 07:01-0400 Body temperature 97.9 [degF] MD Jericho Mccarthy Work Phone: [facility] 03-05-2022 07:01040 Body weight 74.84 kg MD Jericho Mccarthy Work Phone: [facility] 01-21-2022 10:30-0400 Body height 167.64 cm Tj Maira Other [facility] Other 01-21-2022 10:30-0400 Body mass index (BMI) [Ratio] 26.47 kg/m2 Tj Maira Other [facility] Other 01-21-2022 10:30-040 Body weight 74.39 kg Tj Maira Other [facility] Other 01-21-2022 10:30-0400 Diastolic blood pressure 71 mm[Hg] Tj Wells Other [facility] Other 01-21-2022 10:30-0400 Systolic blood pressure 148 mm[Hg] Tj Wells Other [facility] Other Encounters Encounter Date Encounter Type Care Provider Facility Start: 02-02-2024 End: 02-02-2024 ambulatory RAJESH GAINES Not Available Start: 10-31-2023 End: 10-31-2023 ambulatory SANTANA LANDIN [facility] Start: 08-25-2023 End: 08-25-2023 ambulatory JERICHO MCCARTHY Not Available Start: 07-09-2023 End: 07-09-2023 ambulatory PRICE MENDEZ [facility] Start: 05-22-2023 End: 05-22-2023 ambulatory JERICHO MCCARTHY Not Available Start: 05-19-2023 End: 05-19-2023 ambulatory JERICHO ABAD [facility] Start: 04-28-2023 Evaluation and management of inpatient ESTHER HORANI [facility] Start: 04-28-2023 Evaluation and management of inpatient PATRICIA SCHULZ [facility] Start: 04-27-2023 End: 04-30-2023 Evaluation and management of inpatient MENDY CLEMONS [facility] Start: 04-22-2023 End: 04-22-2023 ambulatory BENJA MCGHEE [facility] Start: 10-03-2022 End: 10-04-[address] [...] Start: 03-05-2022 End: 03-05-2022 ambulatory Tj Wells Facility:[facility] Start: 03-05-2022 End: 03-05-2022 Admission to same day surgery center MD Jericho Mccarthy Work Phone: [facility] Start: 03-05-2022 End: 03-05-2022 ambulatory MD Jericho Mccarthy Work Phone: [facility] Work Phone: Start: 03-01-2022 End: 03-01-2022 ambulatory Tj Wells Facility:[facility] Start: 03-01-2022 End: 03-01-2022 ambulatory MD Jericho Mccarthy Work Phone: [facility] Work Phone: Start: 03-01-2022 End: 03-01-2022 Patient encounter procedure MD Jericho Mccarthy Work Phone: [facility] Start: 02-01-2022 End: 02-02-[address] DOCTOR MCCABE Facility:[facility] Start: 01-21-2022 End: 01-21-2022 ambulatory Tj Wells Other [facility] Other Start: 01-21-2022 Office outpatient ne w [...] Date Care Activity Detail Author Start: 03-05-2022 [facility] Patient Education Colitis [facility] Work Phone: Immunizations Immunization Date Immunization Notes Care Provider Fa adrianty 04-30-2021 COVID-19 mRNA Bivale nt Booster (Pfizer) MD Jericho Mccarthy Work Phone: [facility] 08-01-2020 COVID-19 mRNA Comirnaty (Pfizer) MD Jericho Mccarthy Work Phone: [facility] 07-12-2020 COVID-19 mRNA Comirnatjuju (Pfizer) MD Jericho Mccarthy Work Phone: [facility] 02-13-2017 influenza, seasonal, injectable Tj Wells Other [facility] Other 06-27-2016 influenza, seasonal, injectable Tj Wells Other [facility] Other 02-01-2016 pneumococcal polysaccharide vaccine, 23 valent Tj Wells Other [facility] Other Payers Date Payer Category Payer Private Health Insurance [id number] 2022 Self-pay [id number] 2022 Unknown [id number] 1958 Medicare [id number] 2.1 [id number] 1958 Private Health Insurance [id number] [id number] 1951 Unknown [id number] 2.16.84 0.1.709218.3.579.2.593 1950 Unknown [id number] 2.16.84 0.1.987849.3.579.2.593 1950 Unknown [id number] 2.16.84 0.1.459627.3.579.2.593 1950 Unknown [id number] 2.16.84 0.1.541089.3.579.2.593 1951 Unknown [id number] 2.16.84 0.1.007148.3.579.2.593 1951 Unknown [id number] 2.16.84 0.1.458461.3.579.2.593 1951 Unknown [id number] 2.16.84 0.1.635822.3.579.2.593 1951 Unknown [id number] 2.16.84 0.1.359283.3.579.2.593 1951 Unknown [id number] 2.16.84 0.1.891323.3.579.2.593 1951 Unknown [id number] 2.16.84 0.1.343162.3.579.2.593 1951 Unknown [id number] 2.16.84 0.1.233729.3.579.2.593 1951 Unknown [id number] 2.16.84 0.1.575132.3.579.2.593 1951 Unknown [id number] 2.16.84 0.1.605365.3.579.2.1259 1951 Unknown [id number] 2.16.84 0.1.299467.3.579.2.1259 1950 Unknown [id number] 2.16.84 0.1.428207.3.579.2.1259 Unknown [id number] 2.16.8 40.1.356190.3.579.2.531 Unknown [id number] 2.16.8 40.1.457060.3.579.2.531 Social History Date Type Detail Facility Unknown if ever smoked [facility] Other Sex Assigned At Sex Assigned At Bir th [facility] Other Start: 11-11-2019 End: 03-05-2022 Tobacco smoking status NHIS Ex-smoker (finding) [facility] Start: 1950 Sex Assigned At Male F [facility] Medical Equipment Procedure Code Equipment Code Equipment Original Text Equipment Identifier Dates Creation or revision of arteriovenous fistula GRAFT ARTEGRAFT 6MM X 40CM FDA Start: 01-14-2017 Creation or revision of arteriovenous fistula GRAFT ARTEGRAFT 6MM X 40CM FDA Start: 01-14-2017 Goals Date Patient Goal Desired Activity /State Clinical Notes 09-09-2009 to 01-19-2024 Note Date & Type Note Facility 01-19-2024 Note Mg 1.2 reviewed with PRUDENCIO Chou. Patient was previously refusing infusion for Magnesium and note from visit 10/30 was not complete. Per PRUDENCIO Chou on Lateral SV secure chat patient is to be on Amiliride 5mg daily, take Maalox and Mylanta with Mg. Phone call to patient who had stopped Amiliride in error and has been continuing to take Amlodipine which was discontinued. Patient requested script for Amiliride to be sent to [facility] in [place]. Reviewed magnesium rich foods with patient. Patient also states he is taking 2400 mg of magnesium daily. Instructed patient to get repeat labs this month. Patient verbalizes understanding. Also mailed standing lab order for monthly BK to patient to have added to standing labs. [facility] 10-31-2023 Note Patient notified abo ut mag level of 1.3, he stated he saw the [employer] PROCESSOR here today and came up with a plan because he does not want an infusion. [facility] 10-31-2023 Note Transplant Clinic Patient : Roger Suarez; 72 y.o. Reason for Visit: History of renal transplant. SUBJECTIVE: History Of Present Illness: Patient is a 72-year-old male with a history of end-stage renal disease status post donor renal transplant on 02/26/2020. 10/31/2023 Patient returns regarding posttransplant evaluation and immunosuppression regimen management. Patient reports he had recently fallen 3 times in 1 day. Was evaluated by provider, per patient report, possible effusion or middle ear mucus. Was provided with 10 days of antibiotics. Urinary-denies dysuria, weak stream or hematuria. Occasional nocturia. Bowel movements-diarrhea when he takes magnesium, which makes him abstain. Multiple bowel movements daily. No hematochezia. Patient denies fever or chills. Hydration: Drinks 2 quarts of liquids, lemonade and tea BP: Currently on carvedilol 12.5 mg p.o. twice daily, lisinopril 20 mg p.o. daily. Discontinued amlodipine and furosemide. Glucose: On Lantus 20 units at night. Metformin 500 mg p.o. twice daily Mag: Is not reliably taking magnesium supplement due to diarrhea post administration. Lipids: Lipitor 10 mg p.o. daily Immunosuppression: Tacrolimus 0.5 mg p.o. twice daily Usually taken 6:30-7:30 AM /7 PM Myfortic 720 mg (4 tabs x 180mg), PO, BID Review of Systems Negative other than pertinent positives as outlined in the above HPI Chart Reviewed Historical: >>>>>>>>>>>>>>>>>>>>>>>>>>>>>>>>>> >>>>>>>>>>>>>> 07/09/23 I saw him in the clinic today concerning acute on chronic hyponatremia . Of note was recently admitted to the hospital and managed for DKA/HHS, his Na level chronically in the range of 128-130, yesterday his blood work showed Na of 124. Today he reported been feeling normal , denied any headache, N/V or dizzy spell, no lethargy, he was told to drink plenty of fluid and he has been aiming for 80 oz of fluid daily, he is chronically been on 20 mg of lasix daily for BLE edema , denied any new GI or urinary symptoms. 05/19/23 Pt reports BS 114 this morning finger stick at home. On 05/14/[address] Root: pt to consistently take Mag supplement and restart Amlodipine and continue amiloride for low Mag. Pt inpatient 04/27/23 to 04/30/23 for DAVID/Hyponatrimea nd uncontrolled DM. Pt seeing PCP who treats DM next week. Instructed patient to consider [employer] Consultant locally to him: quan velasquez. Pt Hx: end-stage renal disease secondary to polycystic kidney disease and was on hemodialysis since 07/22/2009. He also has medical history of hypertension, heart failure with preserved ejection fraction, nonobstructive coronary artery disease. He received dual kidney transplant to right iliac fossa on 02/26/2020 also had right kidney nephrectomy. CMV -/+. EBV +/+ Patient received Campath for induction. Post operative he was dialyzed once inpatient on 02/29/20 for delayed renal graft function and was also transfused 1 U of PRBC with dialysis. Pt denies CP or SOB. No N/V/D. Resp easy reg. NO edema. Review IS meds: Prograf 0.5mg BID Myfortic 4 tabs BID Review Labs 05/09/23: B/S 142; Creat 0.4; K+ 4.5; Mag 1.[address] Root. Repeat labs pending. Phos 3.9; Hgb and WBC. Discussed adequate hydration. Repeat labs today pending. Plan: Continue meds. Given Mag food list. Monthly labs. See PCP for DM. Return in 12 weeks with labs. <<<<<<<<<<<<<<<<<<<<<<<<<<<<<<<<<< <<<<<<<<<<<<<< OBJECTIVE: Visit Vitals BP 115/58 (BP Location: Right arm, Patient Position: Sitting, BP Cuff Size: Adult) Pulse 55 Temp 36.6 ???C (97.9 ???F) (Oral) Resp 19 Ht 1.676 m (5' 6 ) Wt 65.3 kg (144 lb) SpO2 100% BMI 23.24 kg/m??? Smoking Status Former BSA 1.74 m??? Wt Readings from Last 3 Encounters: 10/31/23 65.3 kg (144 lb) 07/09/23 70.6 kg (155 lb 9.6 oz) 05/19/23 71.7 kg (158 lb) Physical Exam Physical Exam: Constitutional: Roger E Suarez in NO acute distress Psychiatric: Normal affect, alert and oriented HEENT: No scleral icterus Pulmonary: LCTA bilat. Is not laboring to breathe Cardiovascular: RRR. No obvious cyanosis of the extremities Abdomen: Soft, nontender. graft scar is well healed. Extremities: No lower extremity edema Neurologic: Grossly nonfocal Skin: No jaundice Recent Labs I have reviewed the patient's most recent labs as listed below: Most recent outside laboratory testing results from 10/30/2023. Creatinine 0.93, BUN 19, CO2 26.6, sodium 140, potassium 4.1, calcium 8.1 Magnesium 1.3, phosphorus 4.4, uric acid 6.1 CBC-WBC 4.9, hemoglobin 10.8, platelets 293,000 Chemistry: Lab Results Component Value Date/Time NA 125 (L) 07/09/2023 0913 K 5.2 (H) 07/09/2023 0913 CL 93 (L) 07/09/2023 0913 CO2 22 07/09/2023 0913 CO2 26 10/31/2021 0837 BUN 17 07/09/2023 0913 CREATININE 1.01 07/09/2023 0913 EGFR 79.5 07/09/2023 0913 GLU 158 (H) 10/31/2021 0837 CALCIUM 9.1 07/09/ (more content not included)... [facility] 07-09-2023 Note 07/10/23 Chief Complaint Patient presents with Kidney Follow-up Patient has no major concerns today PCP: Jericho Mccarthy MD Txp Referring: [facility]erred Pharmacy: [id number] [place], [place] - [address] [facility] [address] [facility] [place] - [address] [address] [address] [place] [place] [address] [facility] [place], [place] - [address] [facility] [address] Subjective Visit Vitals BP 124/56 (BP Location: [...] Dose Status aMILoride (Midamor) 5 mg tablet [id number] No Take 5 mg by mouth in the morning. Historical ProviderMD Not Taking Flag for Review aMILoride (Midamor) 5 mg tablet [id number] Yes Take 1 tablet (5 mg) by mouth in the morning. Jericho Abad NP Taking Active amLODIPine (Norvasc) 10 mg tablet [id number] Yes Take 1 tablet (10 mg) by mouth in the morning. Benja Mcghee MD Taking Active atorvastatin (Lipitor) 10 mg tablet [id number] Yes Take 1 tablet (10 mg) by mouth every other day. Gita Egan NP Taking Active blood-glucose meter [facility] [id number] Yes Test daily before all meals/snacks and once before bedtime. With 100 lancets and strips Esther Garduno MD Taking Active carvedilol (Coreg) 12.5 mg tablet [id number] Yes Take 1 tablet (12.5 mg) by mouth with breakfast and with evening meal. Gita Egan NP Taking Active cinacalcet (Sensipar) 30 mg tablet [id number] Yes Take 1 tablet every day by oral route. Praveena Cohen MD Taking Active furosemide (Lasix) 20 mg tablet [id number] Yes take 1 tablet by mouth once daily Naga Bosch MD Taking Active insulin glargine (Lantus Solostar U-100 Insulin) 100 unit/mL (3 mL) injection pen [id number] Yes Inject 20 Units under the skin at bedtime. Esther Garduno MD Taking Active isopropyl alcohoL 70 % towelette [id number] Yes Test daily before all meals/snacks and once before bedtime. Esther Garduno MD Taking Active lisinopril 20 mg tablet [id number] Yes Take 1 tablet (20 mg) by mouth in the morning. Benja Mcghee MD Taking Active magnesium oxide (Mag-Ox) 400 mg (241.3 mg magnesium) tablet [id number] Yes Take 2 tablets (800 mg) by mouth in the morning, at noon, and at bedtime. take 2 tablets by mouth three times a day with meals Jericho Abad NP Taking Active metFORMIN (Glucophage) 500 mg tablet [id number] Yes Take 1 tablet (500 mg) by mouth with breakfast and with evening meal. Esther Garduno MD Taking Active mycophenolate (Myfortic) 180 mg EC tablet [id number] Yes Take 4 tablets (720 mg) by mouth in the morning and at bedtime. Jericho Abad NP Taking Active omeprazole OTC (PriLOSEC OTC) 20 mg EC tablet [id number] Yes Take 1 tablet (20 mg) by mouth before breakfast. Do not crush, chew, or split. Esther Garduno MD Taking Active pen needle, diabetic 31 gauge x 5/16 needle [id number] Yes Use to inject 1-4 times daily as directed. Esther Garduno MD Taking Active sildenafil (Revatio) 20 mg tablet [id number] Yes Take 1 tablet 3 times a day by oral route for 90 days. Benja Mcghee MD Taking Active sulfaSALAzine (Azulfidine) 500 mg EC tablet [id number] Yes Take 500 mg by mouth in the morning and at bedtime. Historical Provider, Taking Active tacrolimus (Prograf) 0.5 mg capsule [id number] Yes Take 1 capsule (0.5 mg) by mouth in the morning and at bedtime. Jericho Abad, ABALONE PROCESSOR Taking Active Immunization History Administered Date(s) Administered Influenza, Seasonal, Quadrivalent, Adjuvanted 04/30/2021 Influenza, Unspecified 02/09/2017 Influenza, injectable, quadrivalent 02/09/2019 Influenza, seasonal, injectable 06/27/2016, 02/13/2017 Pfizer SARS-CoV-2 Vaccination 07/12/2020, 08/02/2020, 04/30/2021 Pneumococcal Polysaccharide PPV23 02/01/2016 Patient Active Problem List Diagnosis Cataract Congestive heart failure ([facility]) Coronary atherosclerosis End-stage renal disease ([facility]) History of renal transplant Peripheral vascular disease ([facility]) Increased infection risk status post immunosuppressive therapy Multiple congenital cysts of kidney Moderate mixed hyperlipidemia not requiring statin therapy COLD (chronic obstructive lung disease) ([facility]) Essential hypertension, benign Pleurisy with effusion Polycystic kidney DAVID (acute kidney injury) ([facility]) Hypomagnesemia Family History Problem Relation Name Age of Onset Diabetes Mother Hyperten (more content not included)... [facility] 07-08-2023 Note Left message for pat ient to take one extra lasix 20 mg today and we will retest tomorrow. Per Dr Bobbi dhaliwal. [facility] 07-08-[address] dk dhaliwal, patient added to Dr Moya schedule tomorrow am due to critical low sodium level of 124. Patient notified and will arrive between 8:30 am and 9 am for labs. [facility] 05-19-2023 Note Per phone order of Petr woo MD, Mag IV 3 grams ordered Mag 1.3. BOP notified. Pt notified by phone, states he recently resumed the Amiloride. He is not certain he will agree to return for the infusion. States he reviewed the low Mag level today with Jericho Doran ABALONE PROCESSOR and was taking 8-9 tablets daily but is now reducing to Mag Oxide 800mg TID. [facility] 05-19-2023 Note 05/19/23 Chief Complaint Patient presents with Kidney Follow-up No concerns PCP: Jericho Mccarthy MD Txp Referring: [id number] [place] [facility] [address] [facility] [address] [facility] [address] [place] [address] [address] [facility] [address] [place] [address] [address] [facility] [address] Subjective Visit Vitals BP 120/62 (BP Location: [...] Dose Status aMILoride (Midamor) 5 mg tablet [id number] Yes Take 5 mg by mouth in the morning. Historical Provider, Taking Active amLODIPine (Norvasc) 10 mg tablet [id number] Yes Take 1 tablet (10 mg) by mouth in the morning. Benja Mcghee MD Taking Active atorvastatin (Lipitor) 10 mg tablet [id number] Yes Take 1 tablet (10 mg) by mouth every other day. Gita Egan NP Taking Active blood-glucose meter [facility] [id number] Yes Test daily before all meals/snacks and once before bedtime. With 100 lancets and strips Esther Garduno MD Taking Active carvedilol (Coreg) 12.5 mg tablet [id number] Yes Take 1 tablet (12.5 mg) by mouth with breakfast and with evening meal. Gita Egan NP Taking Active cinacalcet (Sensipar) 30 mg tablet [id number] Yes Take 1 tablet every day by oral route. Praveena Cohen MD Taking Active furosemide (Lasix) 20 mg tablet [id number] Yes take 1 tablet by mouth once daily Naga Bosch MD Taking Active insulin glargine (Lantus Solostar U-100 Insulin) 100 unit/mL (3 mL) injection pen [id number] Yes Inject 20 Units under the skin at bedtime. Esther Garduno MD Taking Active isopropyl alcohoL 70 % towelette [id number] Yes Test daily before all meals/snacks and once before bedtime. Esther Garduno MD Taking Active lisinopril 20 mg tablet [id number] Yes Take 1 tablet (20 mg) by mouth in the morning. Benja Mcghee MD Taking Active magnesium oxide (Mag-Ox) 400 mg (241.3 mg magnesium) tablet [id number] Yes take 2 tablets by mouth three times a day with meals Woodrow Root MD Taking Active metFORMIN (Glucophage) 500 mg tablet [id number] Yes Take 1 tablet (500 mg) by mouth with breakfast and with evening meal. Esther Garduon MD Taking Active mycophenolate (Myfortic) 180 mg EC tablet [id number] Yes Take 4 tablets (720 mg) by mouth in the morning and at bedtime. Jericho Abad NP Taking Active omeprazole OTC (PriLOSEC OTC) 20 mg EC tablet [id number] Yes Take 1 tablet (20 mg) by mouth before breakfast. Do not crush, chew, or split. Esther Garduno MD Taking Active pen needle, diabetic 31 gauge x 5/16 needle [id number] Yes Use to inject 1-4 times daily as directed. Esther Garduno MD Taking Active sildenafil (Revatio) 20 mg tablet [id number] Yes Take 1 tablet 3 times a day by oral route for 90 days. Benja Mcghee MD Taking Active sulfaSALAzine (Azulfidine) 500 mg EC tablet [id number] Yes Take 500 mg by mouth in the morning and at bedtime. Dane Kerr MD Taking Active tacrolimus (Prograf) 0.5 mg capsule [id number] Yes Take 1 capsule (0.5 mg) by [...] failure (CMS/HCC) Coronary atherosclerosis End-stage renal disease ([facility]) History of renal transplant Peripheral vascular disease ([facility]) Increased infection risk status post immunosuppressive therapy Multiple congenital cysts of kidney Moderate mixed hyperlipidemia not requiring statin therapy COLD (chronic obstructive lung disease) ([facility]) Essential hypertension, benign Pleurisy with effusion Polycystic kidney DAVID (acute kidney injury) ([facility]) Hypomagnesemia Family History Problem Relation Name Age of Onset Diabetes Mother Hypertension Mother Coronary artery disease Mother Other (cabg) Mother Cystic kidney disease Mother Hypertension Father Skin cancer Father Cystic kidney disease Father Cystic kidney disease Sister Heart disease Brother ALS Brother (more content not included)... [facility] 05-14-2023 Note Patient states he mi ssed a few doses of magnesium and will get back started on and restart the amlodipine per Dr Dk dhaliwal. [facility] 04-30-2023 Note Attestation signed by Ananda [...] as a transfer from outside hospital in [place] for concerns of possible DKA, hyponatremia, and [...] Dose Status aMILoride (Midamor) 5 mg tablet [id number] Take 1 tablet (5 mg) by mouth in the morning. Wodorow Root MD Active amLODIPine (Norvasc) 10 mg tablet [id number] Take 1 tablet (10 mg) by mouth in the morning. Benja Mcghee MD Active atorvastatin (Lipitor) 10 mg tablet [id number] Take 1 tablet (10 mg) by mouth every other day. Gita Egan NP Active carvedilol (Coreg) 12.5 mg tablet [id number] Take 1 tablet (12.5 mg) by mouth with breakfast and with evening meal. Gita Egan NP Active cinacalcet (Sensipar) 30 mg tablet [id number] Take 1 tablet every day by oral route. Praveena Cohen MD Active furosemide (Lasix) 20 mg tablet [id number] take 1 tablet by mouth once daily Naga Bosch MD Active lisinopril 20 mg tablet [id number] Take 1 tablet (20 mg) by mouth in the morning. Benja Mcghee MD Active magnesium oxide (Mag-Ox) 400 mg (241.3 mg magnesium) tablet [id number] take 2 tablets by mo (more content not included)... [facility] 04-30-2023 Note Hospital Medicine Discharge Summary Final Discharge Diagnosis: DKA Admission Diagnosis: DAVID (acute kidney injury) ([facility]) [N17.9] Hospital course: 72 y.o. male who came from home with DAVID with hyponatremia and uncontrolled hyperglycemia. This is a 72 years old gentleman with a medical history of end-stage renal disease s/p renal transplant 3 years ago here in [facility], peripheral vascular disease, pulmonary hypertension, CAD, and hypertension. Mixed hyperlipidemia, COPD, polycystic kidneys, cataract. Came in as transfer from the outside facility hospital in [place] for concern of possible uncontrolled hyperglycemia with [...] Center 05/02/2023 9:00 AM Ramos Hendrickson PA-C [facility] ENDOCR [facility] 05/19/2023 9:00 AM Jericho Abad NP TXP [...] aMILoride 5 mg tablet Commonly known as: [facility] Where to Get Your Medications These medications were sent to [id number] - [place], [place] - [address] [address] blood-glucose meter [facility] insulin glargine 100 unit/mL (3 mL) injection [...] [id number] - (more content not included)... [facility] 04-29-2023 Note Hospital Medicine Daily Progress Note - 04/29/2023 11:18 AM; Room: [facility]/5172-01 Admission: 04/27/2023 10:59 PM; Length of stay: 2 days THE HOSPITALIST TEAM PREFERS TO USE Lateral SV CHAT FOR COMMUNICATION 7AM-7PM. IF I DO NOT RESPOND WITHIN 15 MINUTES, PLEASE PAGE ME/CALL THROUGH THE DIRECTOR VISUAL. FROM 7PM-7AM, PLEASE PAGE [phone](COVR) Code Status: Full Code Barriers to Discharge: [...] Problems Principal Problem: DAVID (acute kidney injury) ([facility]) Assessment and Plan # DKA [...] Academy of Nutrition and Dietetics and the [place] [employer] of Enteral and Parenteral Nutrition, meets [...] 0.67-0.73. Medial ki (more content not included)... [facility] 04-29-2023 Note Attestation signed by Ananda [...] as a transfer from outside hospital in [place] for concerns of possible DKA, hyponatremia, and [...] Dose Status aMILoride (Midamor) 5 mg tablet [id number] Take 1 tablet (5 mg) by mouth in the morning. Woodrow Root MD Active amLODIPine (Norvasc) 10 mg tablet [id number] Take 1 tablet (10 mg) by mouth in the morning. Benja Mcghee MD Active atorvastatin (Lipitor) 10 mg tablet [id number] Take 1 tablet (10 mg) by mouth every other day. Gita Egan NP Active carvedilol (Coreg) 12.5 mg tablet [id number] Take 1 tablet (12.5 mg) by mouth with breakfast and with evening meal. Gita Egan NP Active cinacalcet (Sensipar) 30 mg tablet [id number] Take 1 tablet every day by oral route. Praveena Cohen MD Acti (more content not included)... [facility] 04-28-2023 Note Hospital Medicine Daily Progress Note - 04/28/2023 12:34 PM; Room: [address] [place] [address] Admission: 04/27/2023 10:59 PM; Length of stay: 1 days THE HOSPITALIST TEAM PREFERS TO USE Lateral SV CHAT FOR COMMUNICATION 7AM-7PM. IF I DO NOT RESPOND WITHIN 15 MINUTES, PLEASE PAGE ME/CALL THROUGH THE DIRECTOR VISUAL. FROM 7PM-7AM, PLEASE PAGE [phone](COVR) Code Status: Full Code Barriers to Discharge: [...] Problems Principal Problem: DAVID (acute kidney injury) ([facility]) Assessment and Plan # DKA [...] Academy of Nutrition and Dietetics and the [place] [employer] of Enteral and Parenteral Nutrition, meets [...] Cardiac silhouette is (more content not included)... [facility] 04-27-2023 Note . Hospital Medicine History and Physical 04/27/2023 11:16 PM THE HOSPITALIST TEAM PREFERS TO USE Lateral SV CHAT FOR COMMUNICATION 7AM-7PM. IF I DO NOT RESPOND WITHIN 15 MINUTES, PLEASE PAGE ME/CALL THROUGH THE DIRECTOR VISUAL. FROM 7PM-7AM, PLEASE PAGE [phone](COVR) Chief Complaint No chief complaint on file. History of Present Illness Roger Suarez is an 72 y.o. male who came from home with DAVID with hyponatremia and uncontrolled hyperglycemia. This is a 72 years old gentleman with a medical history of end-stage renal disease s/p renal transplant 3 years ago here in [facility], peripheral vascular disease, pulmonary hypertension, CAD, and hypertension. Mixed hyperlipidemia, COPD, polycystic kidneys, cataract. Came in as transfer from the outside facility hospital in [place] for concern of possible uncontrolled hyperglycemia with [...] Diagnosis Date Noted DAVID (acute kidney injury) ([facility]) 04/27/2023 COLD (chronic obstructive lung disease) ([facility]) 04/16/2023 Essential hypertension, benign 04/16/2023 Pleurisy with effusion 04/16/2023 Polycystic kidney 04/16/2023 Moderate mixed hyperlipidemia not requiring statin therapy 04/16/2022 Cataract 01/29/2022 Congestive heart failure ([facility]) 01/29/2022 Coronary atherosclerosis 01/29/2022 Multiple congenital cysts of kidney 01/29/2022 History of renal transplant 10/31/2021 Increased infection risk status post immunosuppressive therapy 10/31/2021 Peripheral vascular disease ([facility]) 01/23/2018 End-stage renal disease ([facility]) 07/22/2009 Assessment and Plan #Acute kidney injury [...] this hospital stay by a member of [facility]. Past Medical History Past Medical [...] file Tobacco Use (more content not included)... [facility] 04-22-2023 Note [place] [facility] - [facility] Subjective Roger Suarez is a 72 [...] overload/acute heart failure admission on 08/2018 at [facility]. He had couple of dialysis session [...] lower extremity edema. Cardiac catheterization 03/04/2019: 1. Pxyr-[id number] single-vessel coronary artery disease with 50% stenosis in the mid to distal circumflex and minimal disease in the LAD and RCA. 2. Moderate elevation of filling pressures. 3. Moderate pulmonary hypertension. 4. Preserved cardiac output and cardiac index. RA 8, RV 59/4, 12. PA (more content not included)... [facility] 04-02-2023 Note New standing lab ord er placed in today's outgoing mail. Following call from clinic [facility] that pt is @ [facility] for lab draws, faxed to [phone] new order and requested [facility] [place] fax all lab results to [place] transplant as last monthly lab results were received September 2022. Pt notified order sent & mailed and to contact [place] transplant monthly when labs are completed to confirm receipt or have testing @ [facility]. He acknowledged. Encouraged to FU next week with [place] transplant. [facility] 03-05-2022 Procedure note [facility] 01-21-2022 Evaluation note Encounter Date Diagnosis Assessment Notes Jan, Diarrhea (ICD-10 - R19.7) Colonoscopy Okay to take Imodium - 1 tablet every morning Jan, Fecal urgency (ICD-10 - R15.2) [employer] Other 05-01-2010 History general Narrative - Reported* [...] Hospitalization History Kidney Issue; on transplant list ([facility]) 02/2018 Hospitalization History pulmonary embolism 0 [facility] [employer] Other Evaluation noteNo assessment information available [facility] Work Phone: Evaluation note* Diagnosis Onset Date Resolution Status Diarrhea acute [facility] Work Phone: Hospital Discharge instructions Additional Instructions [...] if you have any problems. -Office number [phone] Work Phone: Reason for visit NarrativePATIENT REFERRED BY DR. MCCARTHY FOR EVALUATION [facility] [employer] Other Summary Purpose Family History No [...] DATE CREATED AUTHOR AUTHOR'S ORGANIZ ATION 11/02/2021 [facility] DATE CREATED AUTHOR AUTHOR'S ORGANIZ ATION 03/12/2022 [facility] DATE CREATED AUTHOR AUTHOR'S ORGANIZ ATION 10/18/2022 [facility] DATE CREATED AUTHOR AUTHOR'S ORGANIZ ATION 01/21/2024 [facility] DATE CREATED AUTHOR AUTHOR'S ORGANIZ ATION 02/03/2024 [facility] EPIC Care Teams (unrecognized sec [...] BE BASED ON THE PRIMARY CLINICAL RECORDS. [facility] [employer] provides no warranty or guarantee of the accuracy or completeness of information in this document.
[2024-02-06 07:49] LABS: Basophils Percent Auto 0.6 % (0.2-2.0); Eosinophils Absolute Auto 0.2 10^3/uL (0.0-0.7); Eosinophils Percent Auto 3.1 % (0.9-7.0); Hemoglobin 12.3 g/dL (14.0-18.0); Immature Granulocytes Abs Auto 0.01 10^3/uL (0.00-0.03); Immature Granulocytes Pct Auto 0.1 % (0.0-0.5); Lymphocytes Absolute Auto 0.8 10^3/uL (1.2-3.8); Lymphocytes Percent Auto 11.8 % (20.5-60.0); Mean Corpuscular HGB Conc 34.2 g/dL (29.9-35.2); Mean Corpuscular Hemoglobin 29.9 pg (25.9-34.0); Mean Corpuscular Volume 87.4 fL (80.0-94.0); Mean Platelet Volume 9.4 fL (9.5-13.5); Monocytes Absolute Auto 0.5 10^3/uL (0.3-0.8); Monocytes Percent Auto 7.7 % (1.7-12.0); Neutrophils Absolute Auto 5.4 10^3/uL (1.4-6.5); Neutrophils Percent Auto 76.7 % (43.0-75.0); Platelet Count 233 10^3/uL (150-450); Red Blood Count 4.12 10^6/uL (4.70-6.10); Red Cell Distribution Width 13.6 % (11.0-15.0); White Blood Count 7.1 10^3/uL (4.0-11.0)
[2024-02-06 07:56] LABS: Estimated Average Glucose 114 mg/dL; Glycohemoglobin A1C 5.6 % (4.5-6.2)
[2024-02-06 07:58] LABS: Alanine Aminotransferase 22 U/L (16-63); Albumin Globulin Ratio 1.4; Alkaline Phosphatase 106 U/L (46-116); Anion Gap 13.4; Aspartate Amino Transferase 17 U/L (15-37); BUN Creatinine Ratio 16.5; Bilirubin Direct 0.1 mg/dL (0.0-0.2); Bilirubin Total 0.4 mg/dL (0.2-1.0); Calcium 9.9 mg/dL (8.5-10.1); Carbon Dioxide 24.4 mmol/L (21.0-32.0); Chloride 96 mmol/L (98-107); Chol HDL Ratio 1.5; Cholesterol 101 mg/dL (<=200); Estimated GFR (African America >60 (>=60); Estimated GFR (Non-African Ame >60 (>=60); Globulin 2.9 g/dL; Glucose 97 mg/dL (74-106); HDL Cholesterol 68 mg/dL (40-60); Magnesium 1.7 mg/dL (1.8-2.4); Phosphorus 4.1 mg/dL (2.6-4.7); Potassium 4.8 mmol/L (3.5-5.1); Sodium 129 mmol/L (136-145); Total Protein 6.9 g/dL (6.4-8.2); Triglycerides 41 mg/dL (<=150); Uric Acid 5.6 mg/dL (3.5-7.2); VLDL CHOLESTEROL 8.2 mg/dL
[2024-02-07 08:12] LABS: Sex Horm Binding Glob, Serum 72.5 nmol/L (19.3-76.4)
[2024-02-09 16:10] LABS: BKV DNA, Quant PCR, Plasma Negative (Negative)
[2024-02-09 18:08] LABS: Tacrolimus (FK506), Blood 4.7 ng/mL (2.0-20.0)
[2024-02-12 12:10] LABS: Free Testosterone(Direct) 8.7 pg/mL (6.6-18.1); Testosterone 449 ng/dL (264-916)
== END 2024-02-06 06:59 | disposition home or self-care (01) ==
LOC: LAB 07:00
PROVIDERS: PCP Family Medicine
DX: B34.8 Other viral infections of unspecified site (principal); Z94.0 Kidney transplant status; E13.9 Other specified diabetes mellitus without complications
CPT/HCPCS: 36415; 80053; 80061; 80197; 82248; 83036; 83735; 84100; 84270; 84402; 84403; 84550; 85025; 87799

== ENCOUNTER 2024-03-11 06:59 | Outpatient (OUT) | payer MEDICARE, OTHER, SELFPAY ==
--- OUTSIDE RECORDS SUMMARY | 2024-03-11 07:07 | XMS_ITS | CCD ---
Author Organization [facility] Care Team Providers Care Critical Care Specialist Name Role Phone Tj Wells Unavailable [phone] MD Jericho Mccarthy Primary Care Provider MD Tj Wells Attending Provider Tj Wells Attending Unavailabl e NadereJericho sullivan Primary Care Unavailable Tj Wells Admitting Unavailabl e Maira, Tj Sullivan Admitting Unavailabl e Tj Wells Attending Unavailabl e NadereJericho sullivan Primary Care Unavailable MISC, DR ALVAREZ Attending Unavailable MISC, DR ALVAREZ Admitting Unavailable MISC, DR ALVAREZ Consulting Unavailable NADERER, DR JERICHO Floyd Primary Care Unavailable WYANDOTTE, DR MERRITT Consulting Unavailable WYANDOTTE, DR MERRITT Attending Unavailable WYANDOTTE, DR MERRITT Admitting Unavailable NADERER, DR FERGUSON A Primary Care Unavailable MISC, DR ALVAREZ Attending Unavailable MISC, DR ALVAREZ Admitting Unavailable NADERER, DR JERICHO Floyd Primary Care Unavailable MISC, DR ALVAREZ Consulting Unavailable WYANDOTTE, DR MERRITT Consulting Unavailable WYANDOTTE, DR MERRITT Attending Unavailable NADERER, DR JERICHO Floyd Primary Care Unavailable WYANDOTTE, DR MERRITT Admitting Unavailable MISC, DR ALVAREZ [...] NADERENate, DR JERICHO Floyd Primary Care Unavailable SAVZSAM, SANTANA Attending Unavailable HORANI, ESTHER Referring Unavailable MERZA, NOORALDIN Referring Unavailable MERZA, NOORALDIN Referring Unavailable KATKO, MENDY Referring Unavailable CHRISTIAN, GYPSY Admitting Unavailable HORANI, ESTHER Attending Unavailable AKRAWI, PRICE Attending Unavailable MOUKARBEL, BENJA Attending Unavailable CRISENBERJuju, JERICHO Attending Unavailable SAVNICK, SANTANA Attending Unavailable NADHAROON, JERICHO Attending Unavailable FABIO, JERICHO Attending Unavailable PETITTIRAJESH Attending Unavailable NADHAROON, JERICHO Attending Unavailable Jericho Mccarthy MD Primary Care Provider [phone] Allergies Allergy Classification Reported Allergen(s) Allergy Type Date of Onset Reaction(s) Facility (1 source) NSAIDs; Translations: [NSAIDS (NON-STEROIDAL ANTI-INFLAMMATOR Y DRUG)] Propensity to adverse reactions to drug (disorder) 2 [facility] Repository (3 sources) Non-steroidal anti-inflammator y agent Drug Intolerance 2 [facility] Medications Current Medications Medication Drug Class(es) Dates Sig (Normalized) Sig (Original) aMILoride hydrochloride 5 mg oral tablet (2 sources) Potassium-sparing Diuretic Start: 01-19-2024 End: 01-18-2025 take 1 tablet by mouth in the morning aMILoride (Midamor) 5 MG tablet Take 5 mg by mouth in the morning. 01/19/2024 01/18/2025 Active amLODIPine 10 mg oral tablet (6 sources) Dihydropyridine Calcium Channel Swetha Start: 07-08-2017 take 10 mg by mouth once daily Amlodipine Active 10 MG PO Daily July 08, 2017 1:00am atorvastatin 10 mg oral tablet (5 sources) HMG-CoA Reductase Inhibitor Start: 10-04-2022 take 1 tablet by mouth every other day atorvastatin (Lipitor) 10 MG tablet Take 1 tablet every other day by oral route. 10/04/2022 Active Start: 03-05-2022 take 10 mg by mouth once daily Atorvastatin Active 10 MG PO Daily March 05, 2022 12:00am take 1 tablet by pastora th once daily Atorvastatin Calcium 10 MG take 1 tablet by mouth once daily Oral for 90 Active carvedilol 3.125 mg oral tablet (11 sources) alpha-Adrenergic Swetha, beta-Adrenergic Swetha Start: 03-05-2022 [...] 08, 2017 1:00am August 26, 2018 8:28am take 1 tablet by pastora th in the morning carvedilol (Coreg) 6.25 MG tablet Take 1 tablet by mouth in the morning and 1 tablet in the evening. Take with meals. Active cinacalcet 30 mg oral tablet (5 sources) Calcium-sensing Receptor Agonist Start: 03-05-2022 take 30 mg by mouth once daily Cinacalcet Active 30 MG PO Daily March 05, 2022 12:00am Cinacalcet HCl A ctive dicyclomine hydrochloride 20 mg oral tablet (1 source) Anticholinergic Start: 03-05-2022 take 20 mg by mouth twice daily Dicyclomine Active 20 MG PO Twice daily March 05, 2022 12:00am furosemide 20 mg oral tablet (4 sources) Loop Diuretic Start: 09-16-2023 take 1 tablet by mouth once daily furosemide (Lasix) 20 MG tablet Take 20 mg by mouth Daily 09/16/2023 Active Start: 03-05-2022 take 20 mg by mouth once daily Furosemide Active 20 MG PO Daily March 05, 2022 12:00am take 1 tablet by pastora th every twenty-four hours Lasix 20 MG 1 tablet Orally Once a day Active 3 ml insulin glargine 100 unt/ml pen injector (5 sources) Insulin Analog Start: 02-16-2024 insulin glargi ne (Basaglar KwikPen) 100 UNIT/ML pen Indications: Type 2 diabetes mellitus with hyperglycemia, with long-term current use of insulin (CMS/[facility]) Inject 15 Units under the skin in the morning. 02/16/2024 Active Start: 02-16-2024 insulin glargi ne (Basaglar KwikPen) 100 UNIT/ML pen Indications: Type 2 diabetes mellitus with hyperglycemia, with long-term current use of insulin (CMS/HCC) Inject 15 Units under the skin in the morning. 02/16/2024 Active Start: 11-18-2023 End: 02-16-2024 insulin glargine (Basaglar K Americaraya) 100 UNIT/ML pen Indications: Type 2 diabetes mellitus with hyperglycemia, with long-term current use of insulin (CMS/[facility]) INJECT 20 UNITS SUBCUTANEOUSLY AT BEDTIME 6 mL 3 11/18/2023 02/16/2024 Discontinued lisinopril 20 mg oral tablet (6 sources) Angiotensin Converting Enzyme Inhibitor Start: 01-07-2017 take 20 mg by mouth once daily Lisinopril Active 20 MG PO Daily January 07, 2017 12:00am Start: 01-07-2017 take 20 mg by mouth twice carmelo y Lisinopril Active 20 MG PO Twice daily January 07, 2017 12:00am Magnesium (1 source) Magnesium Active magnesium oxide 400 mg oral tablet (5 sources) Start: 03-05-2022 take 1200 mg by mouth twice daily Magnesium Oxide Active 1200 MG PO Twice daily March 05, 2022 12:00am take 1 tablet by pastora th in the morning, then take 1 tablet by mouth in the evening, then take 1 tablet by mouth at bedtime magnesium oxide (Mag-Ox) 400 MG tablet Take 400 mg by mouth in the morning and 400 mg in the evening and 400 mg before bedtime. Active Magnesium Oxide Active metFORMIN hydrochloride 500 mg oral tablet (3 sources) Biguanide Start: 11-27-2023 take 1 tablet by mouth twice daily at dinner metFORMIN (Glucophage) 500 MG tablet Indications: Type 2 diabetes mellitus with hyperglycemia, without long-term current use of insulin (CMS/HCC) take 1 tablet by mouth twice a day WITH MORNING AND EVENING MEALS 180 tablet 11 11/27/2023 Active mycophenolic acid 180 mg delayed release oral tablet (4 sources) Antimetabolite Immunosuppressant take 4 tablets by mouth in the morning mycophenolate (Myfortic) 180 MG EC tablet Take 4 tablets by mouth in the morning and 4 tablets before bedtime. Active take 2 tablets by mo [facility] every twelve hours Mycophenolate Sodium 180 MG 2 tablets Or ally Twice a day Active omeprazole 20 mg delayed release oral tablet (3 sources) Proton Pump Inhibitor Start: 04-30-2023 take 1 tablet by mouth before mealtime omeprazole OTC (PriLOSEC OTC) 20 MG EC tablet Take 20 mg by mouth in the morning. Take before meals. 04/30/2023 Active sildenafil 20 mg oral tablet (5 sources) Phosphodiesterase 5 Inhibitor Start: 11-29-2022 take 1 tablet by mouth every eight hours sildenafil (Revatio) 20 MG tablet Take 20 mg by mouth every 8 (eight) hours 11/29/2022 Active Start: 03-05-2022 take 20 mg by mouth three times daily Sildenafil (Pulm.Hypertension) Active 20 MG PO Three times daily March 05, 2022 12:00am take 1 tablet by [facility] three times daily Sildenafil Citrate 20 MG take 1 tablet by mouth three times a day Oral for 30 Active sulfaSALAzine 500 mg oral tablet (3 sources) Aminosalicylate Start: 11-12-2023 End: 02-16-2024 take 1 tablet by mouth in the morning sulfaSALAzine (Azulfidine) 500 MG tablet Take 500 mg by mouth in the morning and 500 mg before bedtime. 11/12/2023 02/16/2024 Discontinued Start: 03-05-2022 take 1 g by mouth twice daily Sulfasalazine Active 1 GM PO Twice daily 60 March 05, 2022 12:00am 24 hr tacrolimus 0.5 mg extended release oral capsule (5 sources) Calcineurin Inhibitor Immunosuppressant Start: 03-05-2022 take 0.5 mg by mouth twice daily after mealtime Tacrolimus Active 0.5 MG PO Twice daily March 05, 2022 12:00am must administer in the morning on an empty stomach, 1 hour before or 2 hours after a meal tacrolimus (Prog naomie) 0.5 MG capsule Take by mouth 2 (two) times a day. Active Tacrolimus 0.03 % 1 application Externally Once a day Active Completed/Discontinued Medications Medication Drug Class(es) Dates Sig (Normalized) Sig (Original) aspirin 81 mg delayed release oral tablet (4 sources) Platelet Aggregation Inhibitor, Nonsteroidal Anti-inflammatory Drug [...] 2 MCG IVP MWF DURING DIALYSIS PER [facility] (08/26/18) 5 ml sodium ferric gluconate complex 12.5 mg/ml injection (2 sources) Start: 07-08-2017 End: 03-05-2022 Sodium Ferric Gluconat-Sucrose (Ferrlecit) 62.5 mg/5 mL Solution Discontinued 125 MG IV Q14D July 08, 2017 1:00am March 05, 2022 7:07am RECEIVES FERRLECIT 125MG IVP EVERY OTHER FRIDAY (DOSE DUE 08/26/18 PER [facility]) Problems Active Problems Problem Classification Problem Date Documented Date Episodic/Chronic Cataract (3 sources) Cataract; Translations: [Unspecified cataract] Onset: 3 05-02-2023 Chronic Chronic kidney disease (20 sources) Dependence on renal dialysis; Translations: [Dependence on renal dialysis] Onset: 0 08-26-2018 Chronic Chronic obstructive pulmonary disease and bronchiectasis (3 sources) Chronic obstructive lung disease; Translations: [Chronic obstructive pulmonary disease, unspecified] Onset: 3 05-22-2023 Chronic Congestive heart failure; nonhypertensive (5 sources) Chronic systolic (congestive) heart failure; Translations: [Chronic heart failure co-occurrent with normal ejection fraction] Onset: 2 Chronic Coronary atherosclerosis and other heart disease (5 sources) Atherosclerotic heart disease of [place] coronary artery without angina pectoris; Translations: [Coronary atherosclerosis] Onset: 2 Chronic Diabetes mellitus with complications (11 sources) 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; Translations: [Hyperglycemia due to type 2 diabetes mellitus] Onset: 3 Chronic Disorders of lipid metabolism (4 sources) Pure hypercholesterolemia, unspecified; Translations: [Mixed hyperlipidemia] Onset: 2 05-02-2023 Chronic Esophageal disorders (2 sources) Gastroesophageal reflux disease; Translations: [Gastro-esophageal reflux disease without esophagitis] 08-26-2018 Chronic Essential hypertension (13 sources) Hypertensive disorder; Translations: [Essential (primary) hypertension] Onset: 2 Resolved: 4 08-26-2018 Chronic Genitourinary congenital anomalies (9 sources) Multiple congenital cysts of kidney; Translations: [Polycystic kidney, unspecified] Onset: 2 08-26-2018 Chronic Hypertension with complications and secondary hypertension (2 sources) Hypertensive emergency; Translations: [Hypertensive emergency] 08-26-2018 Chronic Other aftercare (4 sources) 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; 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 [facility]ARE [facility] OTH ORGN TRANSPL] Onset: 3 Chronic Other aftercare (4 sources) Encounter for aftercare following kidney transplant; 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 AFTERCARE FLW KIDNEY TRANSPL] Onset: 2 Chronic Other connective tissue disease (2 sources) [...] disorders (2 sources) Hypomagnesemia; Translations: [Hypomagnesemia] Onset: 4 Chronic Other screening for suspected conditions (not mental disorders or infectious disease) (2 sources) Other specified abnormal findings of blood chemistry; Translations: [Encounter for screening for malignant neoplasm of other genitourinary organs] Onset: 2 Episodic Peripheral and visceral atherosclerosis (5 sources) Peripheral vascular disease; Translations: [Peripheral vascular disease, unspecified] Onset: 8 05-02-2023 Chronic Pulmonary heart disease (2 sources) Primary pulmonary hypertension; Translations: [Primary pulmonary hypertension] Onset: 3 Chronic Respiratory failure; insufficiency; arrest (adult) (2 sources) Acute respiratory failure; Translations: [Acute respiratory failure with hypoxia] 08-26-2018 Episodic Screening and history of mental health and substance abuse codes (2 sources) Ex-smoker; Translations: [Personal history of nicotine dependence] 08-26-2018 Episodic Unclassified (1 source) Diarrhea, unspecified; Translations: [Diarrhea, unspecified] Onset: 2 Unclassified (1 source) Encounter for preprocedural laboratory examination; Translations: [Encounter for preprocedural laboratory examination] Onset: 2 Unclassified (1 source) CONTACT W/AND (SUSP) EXPOS COVID-19; Translations: [CONTACT W/AND (SUSP) EXPOS COVID-19] Onset: 2 Unclassified (2 sources) Kidney Follow-up; Translations: [Kidney Follow-up] Onset: 4 Past or Other Problems Problem Classification Problem Date Documented Da te Episodic/Chronic Acute and unspecified renal failure (5 sources) Acute kidney failure, unspecified; Translations: [Acute renal failure syndrome] Onset: 3 Resolved: 4 Episodic Diabetes mellitus without complication (2 sources) Impaired glucose tolerance (oral); Translations: [Impaired glucose tolerance (oral)] Onset: 4 Episodic Fluid and electrolyte disorders (2 sources) Hypo-osmolality and hyponatremia; Translations: [Hypo-osmolality and hyponatremia] Onset: 4 Episodic Nausea and vomiting (3 sources) Nausea with vomiting, unspecified; Translations: [NAUSEA WITH VOMITING UNSPECIFIED] Onset: 2 Episodic Noninfectious gastroenteritis (1 source) Noninfective gastroenteritis and colitis, unspecified; Translations: [NONINFECTIVE GE AND COLITIS UNS] Onset: 2 Episodic Other aftercare (1 source) Other continuous churn buttermaker (current) drug therapy; Translations: [OTH RETIREMENT CURRENT DRUG THERAPY] Onset: 2 Episodic Other gastrointestinal disorders (3 sources) Diarrhea, unspecified; Translations: [Diarrhea] Onset: 2 Resolved: 2 Episodic Other gastrointestinal disorders (1 source) Fecal urgency Onset: 2 Resolved: 2 Episodic Other non-epithelial cancer of skin (3 sources) Basal cell carcinoma of dorsum of nose; Translations: [Basal cell carcinoma of skin of nose] Onset: 3 05-02-2023 Episodic Pleurisy; pneumothorax; pulmonary collapse (3 sources) Pleurisy with effusion; Translations: [Pleural effusion, not elsewhere classified] Onset: 3 04-16-2023 Episodic Residual codes; unclassified (3 sources) At risk for infection; Translations: [Personal history of immunosupression therapy] Onset: 2 05-02-2023 Episodic Results Test Name Value Interpretation Reference Range Facility Orders Onlyon 01-16-2024 Orders Only [id number] Roger Suarez 1950 M Date Provider Department Center 01/16/2024 SANTANA EMERSONP None Family History Problem Relation Age of Onset Diabetes Mother Hypertension Mother Coronary artery disease Mother Other Mother Cystic kidney disease Mother Hypertension Father Skin cancer Father Cystic kidney disease Father Cystic kidney disease Sister Heart disease Brother ALS Brother Cystic kidney disease Brother Family Status - Relation Status Age at Mother Father Sister Brother Normal [facility] Follow-Upon 10-31-2023 Follow-Up [id number] Roger Suarez 1950 M Date Provider Department Center 10/31/2023 SANTANA EMERSON TXP None Family History Problem Relation Age of Onset Diabetes Mother Hypertension Mother Coronary artery disease Mother Other Mother Cystic kidney disease Mother Hypertension Father Skin cancer Father Cystic kidney disease Father Cystic kidney disease Sister Heart disease Brother ALS Brother Cystic kidney disease Brother Family Status - Relation Status Age at Mother Father Sister Brother Level of Service:04023 AR OFFICE/OUTPATIENT ESTABLISHED MOD MDM 30 MIN Reason for Visit and Comments: Kidney Follow-up [[id number]] - Pt has no concerns at this time. Normal [facility] BILIRUBIN, DIRECTon 07-09-19 Magnesium [Mass/Vol] 0.2 mg/dL Normal 0-0.2 [facility] Comment on above: Performed By: #### L [id number] #### [facility] ([facility]) [address] [place] [address] CBC WITH AUTO DIFFERENTIALon 07-09-2023 Basophils (Bld) [#/Vol] 0.03 10*3/uL Normal 0.00-0.20 [facility] Comment on above: Performed By: #### L [id number] #### [facility] ([facility]) [address] [place] [address] Basophils/100 WBC (Bld) 0.4 % Normal 0.0-1.0 [facility] Comment on above: Performed By: #### L [id number] #### [facility] ([facility]) [address] [place] [address] Eosinophils (Bld) [#/Vol] 0.16 10*3/uL Normal 0.00-0.50 [facility] Comment on above: Performed By: #### L [id number] #### [facility] ([facility]) [address] [place] [address] Eosinophils/100 WBC (Bld) 1.9 % Normal 0.0-6.0 [facility] Comment on above: Performed By: #### L [id number] #### [facility] ([facility]) [address] [place] [address] Erythrocyte distribution width (RBC) [Ratio] 14.0 % Normal 11.5-15.0 [facility] Comment on above: Performed By: #### L [id number] #### [facility] ([facility]) [address] [place] [address] ERYTHROCYTE MEAN CORPUSCULAR HEMOGLOBIN CONCENTRATION (G/DL) BY AUTOMATED 34.4 g/dL Normal 32.0-35.0 [facility] Comment on above: Performed By: #### L [id number] #### [facility] ([facility]) [address] [place] [address] Hematocrit (Bld) [Volume fraction] 32.3 % Low 39.0-55.0 [facility] Comment on above: Performed By: #### L [id number] #### [facility] ([facility]) [address] [place] [address] Hemoglobin (Bld) [Mass/Vol] 11.1 g/dL Low 13.0-17.0 [facility] Comment on above: Performed By: #### L [id number] #### [facility] ([facility]) [address] [place] [address] Immature granulocytes (Bld) [#/Vol] 0.05 10*3/uL Normal 0.00-0.20 [facility] Comment on above: Performed By: #### L [id number] #### [facility] ([facility]) [address] [place] [address] Immature granulocytes/100 WBC (Bld) 0.6 % Normal 0.0-1.0 [facility] Comment on above: Performed By: #### L [id number] #### [facility] ([facility]) [address] [place] [address] Lymphocytes (Bld) [#/Vol] 1.08 10*3/uL Low 1.20-4.00 [facility] Comment on above: Performed By: #### L [id number] #### [facility] ([facility]) [address] [place] [address] Lymphocytes/100 WBC (Bld) 12.7 % Low 20.0-45.0 [facility] Comment on above: Performed By: #### L [id number] #### [facility] ([facility]) [address] [place] [address] MCH (RBC) [Entitic mass] 30.0 pg Normal 27.0-33.0 [facility] Comment on above: Performed By: #### L [id number] #### [facility] ([facility]) [address] [place] [address] MCV (RBC) [Entitic vol] 87.3 fL Normal 82.0-98.0 [facility] Comment on above: Performed By: #### L [id number] #### [facility] ([facility]) [address] [place] [address] Monocytes (Bld) [#/Vol] 0.67 10*3/uL Normal 0.10-1.00 [facility] Comment on above: Performed By: #### L [id number] #### [facility] ([facility]) [address] [place] [address] Monocytes/100 WBC (Bld) 7.9 % Normal 5.0-12.0 [facility] Comment on above: Performed By: #### L [id number] #### [facility] ([facility]) [address] [place] [address] Neutrophils (Bld) [#/Vol] 6.49 10*3/uL Normal 1.60-7.60 [facility] Comment on above: Performed By: #### L [id number] #### [facility] ([facility]) [address] [place] [address] Neutrophils/100 WBC (Bld) 76.5 % High 40.0-72.0 [facility] Comment on above: Performed By: #### L [id number] #### [facility] ([facility] [address] [place] [address] NRBC (PER 100 WBCS) BY AUTOMATED COUNT 0.0 % Normal 0 [facility] Comment on above: Performed By: #### L [id number] #### [facility] ([facility]) [address] [place] [address] PLATELETS (10*3/UL) IN BLOOD AUTOMATED COUNT 271 10*3/uL Normal 150-400 [facility] Comment on above: Performed By: #### L [id number] #### [facility] ([facility]) [address] [place] [address] RBC (Bld) [#/Vol] 3.70 10*6/uL Low 4.20-5.70 [facility] Comment on above: Performed By: #### L [id number] #### [facility] ([facility]) [address] [place] [address] WBC (Bld) [#/Vol] 8.48 10*3/uL Normal 4.00-10.60 [facility] Comment on above: Performed By: #### L [id number] #### [facility] ([facility]) [address] [place] [address] COMPREHENSIVE METABOLIC PANE Claudio 07-09-2023 Albumin [Mass/Vol] 4.4 g/dL Normal 3.5-5.7 [facility] Comment on above: Performed By: #### L [id number] #### [facility] ([facility]) [address] [place] [address] ALP [Catalytic activity/Vol] 82 U/L Normal 34-104 [facility] Comment on above: Performed By: #### L [id number] #### [facility] ([facility]) [address] [place] [address] ALT [Catalytic activity/Vol] 9 U/L Normal 7-52 [facility] Comment on above: Performed By: #### L [id number] #### [facility] ([facility]) [address] [place] [address] Anion gap [Moles/Vol] 15 mmol/L Normal 7-20 [facility] Comment on above: Performed By: #### L [id number] #### [facility] ([facility]) [address] [place] [address] AST [Catalytic activity/Vol] 14 U/L Normal 13-39 [facility] Comment on above: Performed By: #### L [id number] #### [facility] ([facility]) [address] [place] [address] Bilirubin [Mass/Vol] 0.5 mg/dL Normal 0.3-1.0 [facility] Comment on above: Performed By: #### L [id number] #### [facility] ([facility]) [address] [place] [address] Calcium [Mass/Vol] 9.1 mg/dL Normal 8.6-10.3 [facility] Comment on above: Performed By: #### L [id number] #### [facility] ([facility]) [address] [place] [address] Chloride [Moles/Vol] 93 mmol/L Low 98-107 [facility] Comment on above: Performed By: #### L [id number] #### [facility] ([facility]) [address] [place] [address] CO2 [Moles/Vol] 22 mmol/L Normal 21-31 [facility] Comment on above: Performed By: #### L [id number] #### [facility] ([facility]) [address] [place] [address] Creatinine [Mass/Vol] 1.01 mg/dL Normal 0.70-1.30 [facility] Comment on above: Performed By: #### L [id number] #### [facility] ([facility]) [address] [place] [address] GLOMERULAR FILTRATION RATE ML/MIN/1.73 SQ M.PREDICTED 79.5 mL/min/1.73m*2 Normal >60.0 [facility] Comment on above: Result Comment: [facility]???s estimated glomerular filtration rate (eGFR) will no [...] individuals. Performed By: #### L [id number] #### [facility] ([facility]) [address] [place] [address] Glucose [Mass/Vol] 86 mg/dL Normal 70-100 [facility] Comment on above: Performed By: #### L [id number] #### [facility] ([facility]) [address] [place] [address] Potassium [Moles/Vol] 5.2 mmol/L High 3.5-5.1 [facility] Comment on above: Performed By: #### L [id number] #### [facility] ([facility]) [address] [place] [address] Protein [Mass/Vol] 6.8 g/dL Normal 6.0-8.3 [facility] Comment on above: Performed By: #### L [id number] #### [facility] ([facility]) [address] [place] [address] Sodium [Moles/Vol] 125 mmol/L Low 136-145 [facility] Comment on above: Performed By: #### L [id number] #### [facility] ([facility]) [address] [place] [address] Urea nitrogen [Mass/Vol] 17 mg/dL Normal 7-25 [facility] Comment on above: Performed By: #### L [id number] #### [facility] ([facility]) [address] [place] [address] UREA NITROGEN/CREATININE (MASS RATIO) IN SER/PLAS 16.8 Normal [facility] Comment on above: Performed By: #### L [id number] #### [facility] ([facility]) [address] [place] [address] Follow-Upon 07-09-2023 Follow-Up [id number] Roger Suarez 1950 M Date Provider Department [...] at Mother Father Sister Brother Level of Service:36979 AR OFFICE/OUTPATIENT ESTABLISHED LOW MDM 20 MIN Reason for Visit and Comments: Kidney Follow-up [] - Patient has no major concerns today Normal [facility] HEMOGLOBIN A1Con 07-09-2023 Glucose [Mass/Vol] 160 mg/dL Normal [facility] Comment on above: Performed By: #### L [id number] #### [facility] ([facility]) [address] [place] [address] HbA1c (Bld) [Mass fraction] 7.2 % High 4.0-6.0 [facility] Comment on above: Performed By: #### L [id number] #### [facility] ([facility]) [address] [place] [address] Labon 07-09-2023 Lab [id number] Roger Suarez 1950 M Date Provider Department [place] 07/09/202346813-QHO DRAW STATION KXT Draw [facility] Family History Problem Relation Age of Onset Diabetes Mother Hypertension Mother Coronary artery disease Mother Other Mother Cystic kidney disease Mother Hypertension Father Skin cancer Father Cystic kidney disease Father Cystic kidney disease Sister Heart disease Brother ALS Brother Cystic kidney disease Brother Family Status - Relation Status Age at Mother Father Sister Brother Normal [facility] MAGNESIUMon 07-09-2023 Magnesium [Mass/Vol] 1.5 mg/dL Low 1.9-2.7 [facility] Comment on above: Performed By: #### L [id number] #### [facility] ([facility]) [address] [place] [address] OSMOLALITYon 07-09-2023 OSMOLALITY MEASURED 272 mOsm/kg Low 275-295 [facility] Comment on above: Result Comment: Test Performed by [employer] [address] [place] [id number] - Epftahkg 07/09/2023 16:01 Performed By: #### L [id number] #### [facility] ([facility]) [address] [place] [address] Orders Onlyon 07-09-2023 Orders Only [id number] Carrillo 1950 M Date Provider Department Center 07/09/2023 LAQUITA RAMON TXP None Family History Problem Relation Age of Onset Diabetes Mother Hypertension Mother Coronary artery disease Mother Other Mother Cystic kidney disease Mother Hypertension Father Skin cancer Father Cystic kidney disease Father Cystic kidney disease Sister Heart disease Brother ALS Brother Cystic kidney disease Brother Family Status - Relation Status Age at Mother Father Sister Brother Normal [facility] PHOSPHORUSon 07-09-2023 Magnesium [Mass/Vol] 4.6 mg/dL Normal 2.5-5.0 [facility] Comment on above: Performed By: #### L [id number] #### [facility] ([facility]) [address] [place] [address] TACROLIMUS LEVELon 4 Tacrolimus (Bld) [Mass/Vol] 4.3 ng/mL Low 5.0-20.0 [facility] Comment on above: Result Comment: The GARCIA TUBE BLOWER Tacrolimus assay is a delayed one-step immunoassay for the quantitative determination of tacrolimus in human whole blood using the chemiluminescent microparticle immunoassay (CMIA) technology with flexible assay protocols, referred to as Chemiflex. Performed By: #### L [id number] ####[facility] (AKER)[address] [place] [address] URIC ACIDon 07-09-2023 Magnesium [Mass/Vol] 6.2 mg/dL Normal 4.4-7.6 [facility] Comment on above: Performed By: #### L [id number] #### [facility] ([facility]) [address] [place] [address] Orders Onlyon 06-11-2023 Orders Only [id number] Roger Suarez 1950 M Date Provider Department Center 06/11/2023 Shaylee-JERICHO ABAD [facility] Family History Problem Relation Age of Onset Diabetes Mother Hypertension Mother Coronary artery disease Mother Other Mother Cystic kidney disease Mother Hypertension Father Skin cancer Father Cystic kidney disease Father Cystic kidney disease Sister Heart disease Brother ALS Brother Cystic kidney disease Brother Family Status - Relation Status Age at Mother Father Sister Brother Normal [facility] BILIRUBIN, DIRECTon 05-19-19 24 Magnesium [Mass/Vol] 0.1 mg/dL Normal 0-0.2 [facility] Comment on above: Performed By: #### L [id number] #### [facility] ([facility]) [address] [place] [address] CBC WITH AUTO DIFFERENTIALon 05-19-2023 Basophils (Bld) [#/Vol] 0.03 10*3/uL Normal 0.00-0.20 [facility] Comment on above: Performed By: #### L [id number] #### [facility] ([facility]) [address] [place] [address] Basophils/100 WBC (Bld) 0.4 % Normal 0.0-1.0 [facility] Comment on above: Performed By: #### L [id number] #### [facility] ([facility]) [address] [place] [address] Eosinophils (Bld) [#/Vol] 0.18 10*3/uL Normal 0.00-0.50 [facility] Comment on above: Performed By: #### L [id number] #### [facility] ([facility]) [address] [place] [address] Eosinophils/100 WBC (Bld) 2.7 % Normal 0.0-6.0 [facility] Comment on above: Performed By: #### L [id number] #### [facility] ([facility]) [address] [place] [address] Erythrocyte distribution width (RBC) [Ratio] 13.7 % Normal 11.5-15.0 [facility] Comment on above: Performed By: #### L [id number] #### [facility] ([facility]) [address] [place] [address] ERYTHROCYTE MEAN CORPUSCULAR HEMOGLOBIN CONCENTRATION (G/DL) BY AUTOMATED 32.9 g/dL Normal 32.0-35.0 [facility] Comment on above: Performed By: #### L [id number] #### [facility] ([facility]) [address] [place] [address] Hematocrit (Bld) [Volume fraction] 34.0 % Low 39.0-55.0 [facility] Comment on above: Performed By: #### L [id number] #### [facility] ([facility]) [address] [place] [address] Hemoglobin (Bld) [Mass/Vol] 11.2 g/dL Low 13.0-17.0 [facility] Comment on above: Performed By: #### L [id number] #### [facility] ([facility]) [address] [place] [address] Immature granulocytes (Bld) [#/Vol] 0.02 10*3/uL Normal 0.00-0.20 [facility] Comment on above: Performed By: #### L [id number] #### [facility] ([facility]) [address] [place] [address] Immature granulocytes/100 WBC (Bld) 0.3 % Normal 0.0-1.0 [facility] Comment on above: Performed By: #### L [id number] #### [facility] ([facility]) [address] [place] [address] Lymphocytes (Bld) [#/Vol] 0.80 10*3/uL Low 1.20-4.00 [facility] Comment on above: Performed By: #### L [id number] #### [facility] ([facility]) [address] [place] [address] Lymphocytes/100 WBC (Bld) 11.9 % Low 20.0-45.0 [facility] Comment on above: Performed By: #### L [id number] #### [facility] ([facility]) [address] [place] [address] MCH (RBC) [Entitic mass] 29.4 pg Normal 27.0-33.0 [facility] Comment on above: Performed By: #### L [id number] #### [facility] ([facility]) [address] [place] [address] MCV (RBC) [Entitic vol] 89.2 fL Normal 82.0-98.0 [facility] Comment on above: Performed By: #### L [id number] #### [facility] ([facility]) [address] [place] [address] Monocytes (Bld) [#/Vol] 0.54 10*3/uL Normal 0.10-1.00 [facility] Comment on above: Performed By: #### L [id number] #### [facility] ([facility]) [address] [place] [address] Monocytes/100 WBC (Bld) 8.0 % Normal 5.0-12.0 [facility] Comment on above: Performed By: #### L [id number] #### [facility] ([facility]) [address] [place] [address] Neutrophils (Bld) [#/Vol] 5.14 10*3/uL Normal 1.60-7.60 [facility] Comment on above: Performed By: #### L [id number] #### [facility] ([facility]) [address] [place] [address] Neutrophils/100 WBC (Bld) 76.7 % High 40.0-72.0 [facility] Comment on above: Performed By: #### L [id number] #### [facility] ([facility]) [address] [place] [address] NRBC (PER 100 WBCS) BY AUTOMATED COUNT 0.0 % Normal 0 [facility] Comment on above: Performed By: #### L [id number] #### [facility] ([facility]) [address] [place] [address] PLATELETS (10*3/UL) IN BLOOD AUTOMATED COUNT 271 10*3/uL Normal 150-400 [facility] Comment on above: Performed By: #### L [id number] #### [facility] ([facility]) [address] [place] [address] RBC (Bld) [#/Vol] 3.81 10*6/uL Low 4.20-5.70 [facility] Comment on above: Performed By: #### L [id number] #### [facility] ([facility]) [address] [place] [address] WBC (Bld) [#/Vol] 6.71 10*3/uL Normal 4.00-10.60 [facility] Comment on above: Performed By: #### L [id number] #### [facility] ([facility]) [address] [place] [address] COMPREHENSIVE METABOLIC PANE Claudio 05-19-2023 Albumin [Mass/Vol] 4.5 g/dL Normal 3.5-5.7 [facility] Comment on above: Performed By: #### L [id number] #### [facility] ([facility]) [address] [place] [address] ALP [Catalytic activity/Vol] 85 U/L Normal 34-104 [facility] Comment on above: Performed By: #### L [id number] #### [facility] ([facility]) [address] [place] [address] ALT [Catalytic activity/Vol] 10 U/L Normal 7-52 [facility] Comment on above: Performed By: #### L [id number] #### [facility] ([facility]) [address] [place] [address] Anion gap [Moles/Vol] 15 mmol/L Normal 7-20 [facility] Comment on above: Performed By: #### L [id number] #### [facility] ([facility]) [address] [place] [address] AST [Catalytic activity/Vol] 13 U/L Normal 13-39 [facility] Comment on above: Performed By: #### L [id number] #### [facility] ([facility]) [address] [place] [address] Bilirubin [Mass/Vol] 0.5 mg/dL Normal 0.3-1.0 [facility] Comment on above: Performed By: #### L [id number] #### [facility] ([facility]) [address] [place] [address] Calcium [Mass/Vol] 9.1 mg/dL Normal 8.6-10.3 [facility] Comment on above: Performed By: #### L [id number] #### [facility] ([facility]) [address] [place] [address] Chloride [Moles/Vol] 99 mmol/L Normal 98-107 [facility] Comment on above: Performed By: #### L [id number] #### [facility] ([facility]) [address] [place] [address] CO2 [Moles/Vol] 22 mmol/L Normal 21-31 [facility] Comment on above: Performed By: #### L [id number] #### [facility] ([facility]) [address] [place] [address] Creatinine [Mass/Vol] 0.85 mg/dL Normal 0.70-1.30 [facility] Comment on above: Performed By: #### L [id number] #### [facility] ([facility]) [address] [place] [address] GLOMERULAR FILTRATION RATE ML/MIN/1.73 SQ M.PREDICTED 92.9 mL/min/1.73m*2 Normal >60.0 [facility] Comment on above: Result Comment: The [facility]???s estimated glomerular filtration rate (eGFR) will no [...] individuals. Performed By: #### L [id number] #### [facility] ([facility]) [address] [place] [address] Glucose [Mass/Vol] 107 mg/dL High 70-100 [facility] Comment on above: Performed By: #### L [id number] #### [facility] ([facility]) [address] [place] [address] Potassium [Moles/Vol] 4.9 mmol/L Normal 3.5-5.1 [facility] Comment on above: Performed By: #### L [id number] #### [facility] ([facility]) [address] [place] [address] Protein [Mass/Vol] 6.7 g/dL Normal 6.0-8.3 [facility] Comment on above: Performed By: #### L [id number] #### [facility] ([facility]) [address] [place] [address] Sodium [Moles/Vol] 131 mmol/L Low 136-145 [facility] Comment on above: Performed By: #### L [id number] #### [facility] ([facility]) [address] [place] [address] Urea nitrogen [Mass/Vol] 15 mg/dL Normal 7-25 [facility] Comment on above: Performed By: #### L [id number] #### [facility] ([facility]) [address] [place] [address] UREA NITROGEN/CREATININE (MASS RATIO) IN SER/PLAS 17.6 Normal [facility] Comment on above: Performed By: #### L [id number] #### [facility] ([facility]) [address] [place] [address] Follow-Upon 05-19-2023 Follow-Up [id number] Roger Suarez 1950 M Date Provider Department Center 05/19/2023 JERICHO MOY None Family History Problem Relation Age of Onset Diabetes Mother Hypertension Mother Coronary artery disease Mother Other Mother Cystic kidney disease Mother Hypertension Father Skin cancer Father Cystic kidney disease Father Cystic kidney disease Sister Heart disease Brother ALS Brother Cystic kidney disease Brother Family Status - Relation Status Age at Mother Father Sister Brother Level of Service:[id number] AR OFFICE/OUTPATIENT ESTABLISHED MOD MDM 30 MIN Reason for Visit and Comments: Kidney Follow-up [] - No concerns Normal [facility] LIPID PANELon 05-19-2023 CHOL/HDL 1.9 mg/dL Normal [facility] Comment on above: Performed By: #### L [id number] #### [facility] ([facility]) [address] [place] [address] Cholesterol [Mass/Vol] 88 mg/dL Low 120-200 [facility] Comment on above: Performed By: #### L [id number] #### [facility] ([facility]) [address] [facility] [place] [place] [address] Magnesium [Mass/Vol] 53 mg/dL Normal 40-149 [facility] Comment on above: Result Comment: TRIG LYCERIDE REFERENCE RANGE: 20 YEARS AND OLDER CARDIOVASCULAR RISK LESS THAN 150 mg/dL LOW RISK 150 TO 199 mg/dL BORDERLINE RISK 200 mg/dL AND GREATER HIGH RISK Performed By: #### L [id number] #### [facility] ([facility]) [address] [place] [address] Magnesium [Mass/Vol] 30 mg/dL Normal 0-160 [facility] Comment on above: Performed By: #### L [id number] #### [facility] ([facility]) [address] [place] [address] Magnesium [Mass/Vol] 47 mg/dL Normal 23-92 [facility] Comment on above: Performed By: #### L [id number] #### [facility] ([facility]) [address] [place] [address] NON HDL CHOL. (LDL+VLDL) 41 Normal [facility] Comment on above: Performed By: #### L [id number] #### [facility] ([facility]) [address] [place] [address] TOTAL VLDL-C 11 mg/dL Normal 0-40 [facility] Comment on above: Performed By: #### L [id number] #### [facility] ([facility]) [address] [place] [address] Labon 05-19-2023 Lab [id number] Roger Suarez [place] 1950 M Date Provider Department Center 05/19/202338347-DZY DRAW STATION KXT Draw [facility] Family History Problem Relation Age of Onset Diabetes Mother Hypertension Mother Coronary artery disease Mother Other Mother Cystic kidney disease Mother Hypertension Father Skin cancer Father Cystic kidney disease Father Cystic kidney disease Sister Heart disease Brother ALS Brother Cystic kidney disease Brother Family Status - Relation Status Age at Mother Father Sister Brother Normal [facility] MAGNESIUMon 05-19-2023 Magnesium [Mass/Vol] 1.3 mg/dL Low 1.9-2.7 [facility] Comment on above: Performed By: #### L [id number] #### [facility] ([facility]) [address] [place] [address] Orders Onlyon 05-19-2023 Orders Only [id number] Roger Suarez Tyson 1950 M Date Provider Department Center 05/19/2023 Anamika-LINK SUAREZ TXLazara None Family History Problem Relation Age of Onset Diabetes Mother Hypertension Mother Coronary artery disease Mother Other Mother Cystic kidney disease Mother Hypertension Father Skin cancer Father Cystic kidney disease Father Cystic kidney disease Sister Heart disease Brother ALS Brother Cystic kidney disease Brother Family Status - Relation Status Age at Mother Father Sister Brother Normal [facility] PHOSPHORUSon 05-19-2023 Magnesium [Mass/Vol] 4.5 mg/dL Normal 2.5-5.0 [facility] Comment on above: Performed By: #### L [id number] #### [facility] ([facility]) [address] [place] [address] TACROLIMUS LEVELon Tacrolimus (Bld) [Mass/Vol] 6.0 ng/mL Normal 5.0-20.0 [facility] Comment on above: Result Comment: The GARCIA TUBE BLOWER Tacrolimus assay is a delayed one-step immunoassay for the quantitative determination of tacrolimus in human whole blood using the chemiluminescent microparticle immunoassay (CMIA) technology with flexible assay protocols, referred to as Chemiflex. Performed By: #### L [id number] #### [facility] [address] [place] [address] TESTOSTERONE, FREE AND TOTAL , AND SHBGon 05-19-2023 SEX HORMONE BINDING GLOBULIN (NMOL/L) IN SER/PLAS 61 nmol/L Normal 11-80 [facility] Comment on above: Performed By: #### L [id number] #### [facility] [address] [place] [address] TESTOSTERONE (NG/DL) IN SER/PLAS 440 ng/dL Normal 220-1000 [facility] Comment on above: Performed By: #### L [id number] #### [facility] [address] [place] [address] TESTOSTERONE FREE (NG/ML) IN SER/PLAS 59.5 pg/mL Normal 47-244 [facility] Comment on above: Result Comment: The concentration of free testosterone is derived from a mathematical expression based on the constant for the binding of testosterone to albumin and/or sex hormone binding globulin. Test Performed by [employer] [address] [place] [address] - Released 05/19/2023 15:01 Performed By: #### L [id number] #### [facility] [address] [place] [address] URIC ACIDon 05-19-2023 Magnesium [Mass/Vol] 6.2 mg/dL Normal 4.4-7.6 [facility] Comment on above: Performed By: #### L [id number] #### [facility] ([facility]) [address] [place] [address] Documentationon 05-14-2023 Documentation [id number] Roger Suarez 1950 M Date Provider Department [...] Age at Mother Father Sister Brother Normal [facility] 30on 04-30-2023 30 Daily Case Managemen t Update Multidisciplinary rounds have been completed. Barriers to Discharge: MR for DC Home to follow up with [employer] on Friday. New Diabetic Supply Scripts have been faxed to his pharmacy in [place], [place]. Diet: Dietary Orders (From admission, onward) Start Ordered 04/29/23 171 Special Kitchen Request Once Comments: Please send a salad with ham, roque, shredded cheddar cheese and onions with uruguayan dressing. Layered chocolate cake and a diet [...] of Consultation Consultation and Management 04/27/23 231 Ancillary Consults (From admission, onward) Start Ordered 04/30/23 1110 Inpatient consult to Clinical Dietitian Once Comments: Pending discharge Provider: (Not yet assigned) Question: Reason for Consult? Answer: New diagnosis DM2 04/30/23 1109 Normal [facility] 30 Problem: Pain - Adul t Goal: [...] and maintained or improved Outcome: Progressing Normal [facility] BASIC METABOLIC PANELon 12-2 -2022 Anion gap [Moles/Vol] 12 mmol/L Normal 7-20 [facility] Comment on above: Performed By: #### L [id number] #### [facility] ([facility]) [address] [place] [address] Calcium [Mass/Vol] 8.7 mg/dL Normal 8.6-10.3 [facility] Comment on above: Performed By: #### L [id number] #### [facility] ([facility]) [address] [place] [address] Chloride [Moles/Vol] 102 mmol/L Normal 98-107 [facility] Comment on above: Performed By: #### L [id number] #### [facility] ([facility]) [address] [place] [address] CO2 [Moles/Vol] 24 mmol/L Normal 21-31 [facility] Comment on above: Performed By: #### L [id number] #### [facility] ([facility]) [address] [place] [address] Creatinine [Mass/Vol] 0.80 mg/dL Normal 0.70-1.30 [facility] Comment on above: Performed By: #### L [id number] #### [facility] ([facility]) [address] [place] [address] GLOMERULAR FILTRATION RATE ML/MIN/1.73 SQ M.PREDICTED 94.6 mL/min/1.73m*2 Normal >60.0 [facility] Comment on above: Result Comment: The [facility]???s estimated glomerular filtration rate (eGFR) will no [...] group of individuals. Performed By: #### L [id number] #### [facility] ([facility]) [address] [place] [address] Glucose [Mass/Vol] 160 mg/dL High 70-100 [facility] Comment on above: Performed By: #### L [id number] #### [facility] ([facility]) [address] [place] [address] Potassium [Moles/Vol] 4.2 mmol/L Normal 3.5-5.1 [facility] Comment on above: Performed By: #### L [id number] #### [facility] ([facility]) [address] [place] [address] Sodium [Moles/Vol] 134 mmol/L Low 136-145 [facility] Comment on above: Performed By: #### L [id number] #### [facility] ([facility]) [address] [place] [address] Urea nitrogen [Mass/Vol] 14 mg/dL Normal 7-25 [facility] Comment on above: Performed By: #### L [id number] #### [facility] ([facility]) [address] [place] [address] UREA NITROGEN/CREATININE (MASS RATIO) IN SER/PLAS 17.5 Normal [facility] Comment on above: Performed By: #### L [id number] #### [facility] ([facility]) [address] [place] [address] CBCon 04-30-2023 Erythrocyte distribution width (RBC) [Ratio] 13.0 % Normal 11.5-15.0 [facility] Comment on above: Performed By: #### L [id number] #### [facility] ([facility]) [address] [place] [address] ERYTHROCYTE MEAN CORPUSCULAR HEMOGLOBIN CONCENTRATION (G/DL) BY AUTOMATED 33.9 g/dL Normal 32.0-35.0 [facility] Comment on above: Performed By: #### L [id number] #### [facility] ([facility]) [address] [place] [address] Hematocrit (Bld) [Volume fraction] 28.0 % Low 39.0-55.0 [facility] Comment on above: Performed By: #### L [id number] #### [facility] ([facility]) [address] [place] [address] Hemoglobin (Bld) [Mass/Vol] 9.5 g/dL Low 13.0-17.0 [facility] Comment on above: Performed By: #### L [id number] #### [facility] ([facility]) [address] [place] [address] MCH (RBC) [Entitic mass] 29.3 pg Normal 27.0-33.0 [facility] Comment on above: Performed By: #### L [id number] #### [facility] ([facility]) [address] [place] [address] MCV (RBC) [Entitic vol] 86.4 fL Normal 82.0-98.0 [facility] Comment on above: Performed By: #### L [id number] #### [facility] ([facility]) [address] [place] [address] PLATELETS (10*3/UL) IN BLOOD AUTOMATED COUNT 232 10*3/uL Normal 150-400 [facility] Comment on above: Performed By: #### L [id number] #### [facility] ([facility]) [address] [place] [address] RBC (Bld) [#/Vol] 3.24 10*6/uL Low 4.20-5.70 [facility] Comment on above: Performed By: #### L [id number] #### [facility] ([facility]) [address] [place] [address] WBC (Bld) [#/Vol] 5.11 10*3/uL Normal 4.00-10.60 [facility] Comment on above: Performed By: #### L [id number] #### [facility] ([facility]) [address] [place] [address] MAGNESIUMon 04-30-2023 Magnesium [Mass/Vol] 1.2 mg/dL Low 1.9-2.7 [facility] Comment on above: Performed By: #### L [id number] #### [facility] ([facility]) [address] [place] [address] PHOSPHORUSon 04-30-2023 Magnesium [Mass/Vol] 3.3 mg/dL Normal 2.5-5.0 [facility] Comment on above: Performed By: #### L [id number] #### [facility] ([facility]) [address] [place] [address] POCT GLUCOSE METER UNSOLICIT ED RESULTSon 04-30-2023 Glucose [Mass/Vol] 251 mg/dL High 70-105 [facility] Comment on above: Order Comment: Waive d Testing in the ED is performed under the ED CLIA certificate #[id number]. Result Comment: [email or web address] Performed By: #### L [id number] #### [facility] ([facility]) [address] [place] [address] Glucose [Mass/Vol] 146 mg/dL High 70-105 [facility] Comment on above: Order Comment: Waive d Testing in the ED is performed under the ED CLIA certificate #[id number]. Result Comment: [email or web address] Performed By: #### L [id number] #### [facility] ([facility]) [address] [place] [address] TACROLIMUS LEVELon Tacrolimus (Bld) [Mass/Vol] 6.1 ng/mL Normal 5.0-20.0 [facility] Comment on above: Result Comment: The GARCIA TUBE BLOWER Tacrolimus assay is a delayed one-step immunoassay for the quantitative determination of tacrolimus in human whole blood using the chemiluminescent microparticle immunoassay (CMIA) technology with flexible assay protocols, referred to as Chemiflex. Performed By: #### L [id number] #### [facility] ([facility]) [address] [place] [address] 30on 04-29-2023 30 Daily Case Managemen t [...] roque, shredded cheddar cheese and onions with uruguayan dressing. Layered chocolate cake and a diet [...] Consultation Consultation and Management 04/27/23 2313 Normal [facility] BASIC METABOLIC PANELon 04-11 Anion gap [Moles/Vol] 13 mmol/L Normal 7-20 [facility] Comment on above: Performed By: #### L [id number] ####[facility] ([facility])[address] [place] [address] Calcium [Mass/Vol] 8.7 mg/dL Normal 8.6-10.3 [facility] Comment on above: Performed By: #### L [id number] ####[facility] ([facility])[address] [place] [address] Chloride [Moles/Vol] 103 mmol/L Normal 98-107 [facility] Comment on above: Performed By: #### L [id number] ####[facility] ([facility])[address] [place] [address] CO2 [Moles/Vol] 22 mmol/L Normal 21-31 [facility] Comment on above: Performed By: #### L [id number] ####[facility] ([facility])[address] [place] [address] Creatinine [Mass/Vol] 0.96 mg/dL Normal 0.70-1.30 [facility] Comment on above: Performed By: #### L [id number] ####[facility] ([facility])[address] [place] [address] GLOMERULAR FILTRATION RATE ML/MIN/1.73 SQ M.PREDICTED 84.5 mL/min/1.73m*2 Normal >60.0 [facility] Comment on above: Result Comment: The [facility]???s estimated glomerular filtration rate (eGFR) will no [...] of individuals. Performed By: #### L [id number] ####[facility] ([facility])[address] [place] [address] Glucose [Mass/Vol] 175 mg/dL High 70-100 [facility] Comment on above: Performed By: #### L [id number] ####[facility] ([facility])[address] [place] [address] Potassium [Moles/Vol] 4.5 mmol/L Normal 3.5-5.1 [facility] Comment on above: Performed By: #### L [id number] ####[facility] ([facility])[address] [place] [address] Sodium [Moles/Vol] 133 mmol/L Low 136-145 [facility] Comment on above: Performed By: #### L [id number] ####[facility] ([facility])[address] [place] [address] Urea nitrogen [Mass/Vol] 29 mg/dL High 7-25 [facility] Comment on above: Performed By: #### L [id number] ####[facility] ([facility])[address] [place] [address] UREA NITROGEN/CREATININE (MASS RATIO) IN SER/PLAS 30.2 Normal [facility] Comment on above: Performed By: #### L [id number] ####[facility] ([facility])[address] [place] [address] Anion gap [Moles/Vol] 16 mmol/L Normal 7-20 [facility] Comment on above: Performed By: #### L [id number] ####[facility] ([facility])[address] [place] [address] Calcium [Mass/Vol] 8.7 mg/dL Normal 8.6-10.3 [facility] Comment on above: Performed By: #### L [id number] ####[facility] ([facility])[address] [place] [address] Chloride [Moles/Vol] 102 mmol/L Normal 98-107 [facility] Comment on above: Performed By: #### L [id number] ####[facility] ([facility])[address] [place] [address] CO2 [Moles/Vol] 19 mmol/L Low 21-31 [facility] Comment on above: Performed By: #### L [id number] ####[facility] ([facility])[address] [place] [address] Creatinine [Mass/Vol] 1.02 mg/dL Normal 0.70-1.30 [facility] Comment on above: Performed By: #### L [id number] ####[facility] ([facility])[address] [place] [address] GLOMERULAR FILTRATION RATE ML/MIN/1.73 SQ M.PREDICTED 78.6 mL/min/1.73m*2 Normal >60.0 [facility] Comment on above: Result Comment: The [facility]???s estimated glomerular filtration rate (eGFR) will no [...] of individuals. Performed By: #### L [id number] ####[facility] ([facility])[address] [place] [address] Glucose [Mass/Vol] 206 mg/dL High 70-100 [facility] Comment on above: Performed By: #### L [id number] ####[facility] ([facility])[address] [place] [address] Potassium [Moles/Vol] 4.8 mmol/L Normal 3.5-5.1 [facility] Comment on above: Performed By: #### L [id number] ####[facility] ([facility])[address] [place] [address] Sodium [Moles/Vol] 132 mmol/L Low 136-145 [facility] Comment on above: Performed By: #### L [id number] ####[facility] ([facility])[address] [place] [address] Urea nitrogen [Mass/Vol] 31 mg/dL High 7-25 [facility] Comment on above: Performed By: #### L [id number] ####[facility] ([facility])[address] [place] [address] UREA NITROGEN/CREATININE (MASS RATIO) IN SER/PLAS 30.4 Normal [facility] Comment on above: Performed By: #### L [id number] ####[facility] ([facility])[address] [place] [address] POCT GLUCOSE METER UNSOLICIT ED RESULTSon 04-29-2023 Glucose [Mass/Vol] 151 mg/dL High 70-105 [facility] Comment on above: Order Comment: Waive d Testing in the ED is performed under the ED CLIA certificate #[id number]. Result Comment: [email or web address] dic Performed By: #### L [id number] #### [facility] ([facility]) [address] [place] [address] Glucose [Mass/Vol] 166 mg/dL High 70-105 [facility] Comment on above: Order Comment: Waive d Testing in the ED is performed under the ED CLIA certificate #[id number]. Result Comment: lzar ate Performed By: #### L [id number] #### [facility] ([facility]) [address] [place] [address] Glucose [Mass/Vol] 147 mg/dL High 70-105 [facility] Comment on above: Order Comment: Waive d Testing in the ED is performed under the ED CLIA certificate #[id number]. Result Comment: [email or web address] Performed By: #### L [id number] #### [facility] ([facility]) [address] [place] [address] Glucose [Mass/Vol] 145 mg/dL High 70-105 [facility] Comment on above: Order Comment: Waive d Testing in the ED is performed under the ED CLIA certificate #[id number]. Result Comment: [email or web address] Performed By: #### L [id number] #### [facility] ([facility]) [address] [place] [address] TACROLIMUS LEVELon Tacrolimus (Bld) [Mass/Vol] 8.6 ng/mL Normal 5.0-20.0 [facility] Comment on above: Result Comment: The GARCIA TUBE BLOWER Tacrolimus assay is a delayed one-step immunoassay for the quantitative determination of tacrolimus in human whole blood using the chemiluminescent microparticle immunoassay (CMIA) technology with flexible assay protocols, referred to as Chemiflex. Performed By: #### L [id number] #### [facility] ([facility]) [address] [place] [address] BASIC METABOLIC PANELon 04-11 Anion gap [Moles/Vol] 17 mmol/L Normal 7-20 [facility] Comment on above: Performed By: #### L [id number] ####[facility] ([facility])[address] [place] [address] Calcium [Mass/Vol] 8.6 mg/dL Normal 8.6-10.3 [facility] Comment on above: Performed By: #### L [id number] ####[facility] ([facility])[address] [place] [address] Chloride [Moles/Vol] 102 mmol/L Normal 98-107 [facility] Comment on above: Performed By: #### L [id number] ####[facility] ([facility])[address] [place] [address] CO2 [Moles/Vol] 20 mmol/L Low 21-31 [facility] Comment on above: Performed By: #### L [id number] ####[facility] ([facility])[address] [place] [address] Creatinine [Mass/Vol] 1.07 mg/dL Normal 0.70-1.30 [facility] Comment on above: Performed By: #### L [id number] ####[facility] ([facility])[address] [place] [address] GLOMERULAR FILTRATION RATE ML/MIN/1.73 SQ M.PREDICTED 74.2 mL/min/1.73m*2 Normal >60.0 [facility] Comment on above: Result Comment: The [facility]???s estimated glomerular filtration rate (eGFR) will no [...] of individuals. Performed By: #### L [id number] ####[facility] ([facility])[address] [place] [address] Glucose [Mass/Vol] 144 mg/dL High 70-100 [facility] Comment on above: Performed By: #### L [id number] ####[facility] ([facility])[address] [place] [address] Potassium [Moles/Vol] 4.7 mmol/L Normal 3.5-5.1 [facility] Comment on above: Performed By: #### L [id number] ####[facility] ([facility])[address] [place] [address] Sodium [Moles/Vol] 134 mmol/L Low 136-145 [facility] Comment on above: Performed By: #### L [id number] ####[facility] ([facility])[address] [place] [address] Urea nitrogen [Mass/Vol] 34 mg/dL High 7-25 [facility] Comment on above: Performed By: #### L [id number] ####[facility] ([facility])[address] [place] [address] UREA NITROGEN/CREATININE (MASS RATIO) IN SER/PLAS 31.8 Normal [facility] Comment on above: Performed By: #### L [id number] ####[facility] ([facility])[address] [place] [address] Anion gap [Moles/Vol] 17 mmol/L Normal 7-20 [facility] Comment on above: Performed By: #### L [id number] ####[facility] ([facility])[address] [place] [address] Calcium [Mass/Vol] 8.7 mg/dL Normal 8.6-10.3 [facility] Comment on above: Performed By: #### L [id number] ####[facility] ([facility])[address] [place] [address] Chloride [Moles/Vol] 100 mmol/L Normal 98-107 [facility] Comment on above: Performed By: #### L [id number] ####[facility] ([facility])[address] [place] [address] CO2 [Moles/Vol] 19 mmol/L Low 21-31 [facility] Comment on above: Performed By: #### L [id number] ####[facility] ([facility])[address] [place] [address] Creatinine [Mass/Vol] 1.20 mg/dL Normal 0.70-1.30 [facility] Comment on above: Performed By: #### L [id number] ####[facility] ([facility])[address] [place] [address] GLOMERULAR FILTRATION RATE ML/MIN/1.73 SQ M.PREDICTED 64.7 mL/min/1.73m*2 Normal >60.0 [facility] Comment on above: Result Comment: The [facility]???s estimated glomerular filtration rate (eGFR) will no [...] of individuals. Performed By: #### L [id number] ####[facility] ([facility])[address] [place] [address] Glucose [Mass/Vol] 237 mg/dL High 70-100 [facility] Comment on above: Performed By: #### L [id number] ####[facility] ([facility])[address] [place] [address] Potassium [Moles/Vol] 4.4 mmol/L Normal 3.5-5.1 [facility] Comment on above: Performed By: #### L [id number] ####[facility] ([facility])[address] [place] [address] Sodium [Moles/Vol] 132 mmol/L Low 136-145 [facility] Comment on above: Performed By: #### L [id number] ####[facility] ([facility])[address] [place] [address] Urea nitrogen [Mass/Vol] 40 mg/dL High 7-25 [facility] Comment on above: Performed By: #### L [id number] ####[facility] ([facility])[address] [place] [address] UREA NITROGEN/CREATININE (MASS RATIO) IN SER/PLAS 33.3 Normal [facility] Comment on above: Performed By: #### L [id number] ####[facility] ([facility])[address] [place] [address] Anion gap [Moles/Vol] 20 mmol/L Normal 7-20 [facility] Comment on above: Performed By: #### L [id number] ####[facility] ([facility])[address] [place] [address] Calcium [Mass/Vol] 8.6 mg/dL Normal 8.6-10.3 [facility] Comment on above: Performed By: #### L [id number] ####[facility] ([facility])[address] [place] [address] Chloride [Moles/Vol] 101 mmol/L Normal 98-107 [facility] Comment on above: Performed By: #### L [id number] ####[facility] ([facility])[address] [place] [address] CO2 [Moles/Vol] 14 mmol/L Invalid Interpretation Code 21- [facility] Comment on above: Performed By: #### L [id number] ####[facility] ([facility])[address] [place] [address] Creatinine [Mass/Vol] 1.32 mg/dL High 0.70-1.30 [facility] Comment on above: Performed By: #### L [id number] ####[facility] ([facility])[address] [place] [address] GLOMERULAR FILTRATION RATE ML/MIN/1.73 SQ M.PREDICTED 57.7 mL/min/1.73m*2 Low >60.0 [facility] Comment on above: Result Comment: The [facility]???s estimated glomerular filtration rate (eGFR) will no [...] of individuals. Performed By: #### L [id number] ####[facility] ([facility])[address] [place] [address] Glucose [Mass/Vol] 332 mg/dL High 70-100 [facility] Comment on above: Performed By: #### L [id number] ####[facility] ([facility])[address] [place] [address] Potassium [Moles/Vol] 4.6 mmol/L Normal 3.5-5.1 [facility] Comment on above: Performed By: #### L [id number] ####[facility] ([facility])[address] [place] [address] Sodium [Moles/Vol] 130 mmol/L Low 136-145 [facility] Comment on above: Performed By: #### L [id number] ####[facility] ([facility])[address] [place] [address] Urea nitrogen [Mass/Vol] 43 mg/dL High 7-25 [facility] Comment on above: Performed By: #### L [id number] ####[facility] ([facility])[address] [place] [address] UREA NITROGEN/CREATININE (MASS RATIO) IN SER/PLAS 32.6 Normal [facility] Comment on above: Performed By: #### L [id number] ####[facility] ([facility])[address] [place] [address] Anion gap [Moles/Vol] 22 mmol/L High 7-20 [facility] Comment on above: Performed By: #### L [id number] #### [facility] ([facility]) [address] [place] [address] Calcium [Mass/Vol] 8.9 mg/dL Normal 8.6-10.3 [facility] Comment on above: Performed By: #### L [id number] #### [facility] ([facility]) [address] [place] [address] Chloride [Moles/Vol] 99 mmol/L Normal 98-107 [facility] Comment on above: Performed By: #### L [id number] #### [facility] ([facility]) [address] [place] [address] CO2 [Moles/Vol] 13 mmol/L Invalid Interpretation Code [facility] Comment on above: Performed By: #### L [id number] #### [facility] ([facility]) [address] [place] [address] Creatinine [Mass/Vol] 1.33 mg/dL High 0.70-1.30 [facility] Comment on above: Performed By: #### L [id number] #### [facility] ([facility]) [address] [place] [address] GLOMERULAR FILTRATION RATE ML/MIN/1.73 SQ M.PREDICTED 57.1 mL/min/1.73m*2 Low >60.0 [facility] Comment on above: Result Comment: The [facility]???s estimated glomerular filtration rate (eGFR) will no [...] individuals. Performed By: #### L [id number] #### [facility] ([facility]) [address] [place] [address] Glucose [Mass/Vol] 324 mg/dL High 70-100 [facility] Comment on above: Performed By: #### L [id number] #### [facility] ([facility]) [address] [place] [address] Potassium [Moles/Vol] 5.7 mmol/L High 3.5-5.1 [facility] Comment on above: Performed By: #### L [id number] #### [facility] ([facility]) [address] [place] [address] Sodium [Moles/Vol] 128 mmol/L Low 136-145 [facility] Comment on above: Performed By: #### L [id number] #### [facility] ([facility]) [address] [place] [address] Urea nitrogen [Mass/Vol] 45 mg/dL High 7-25 [facility] Comment on above: Performed By: #### L [id number] #### [facility] ([facility]) [address] [place] [address] UREA NITROGEN/CREATININE (MASS RATIO) IN SER/PLAS 33.8 Normal [facility] Comment on above: Performed By: #### L [id number] #### [facility] ([facility]) [address] [place] [address] Anion gap [Moles/Vol] 23 mmol/L High 7-20 [facility] Comment on above: Performed By: #### L [id number] #### [facility] ([facility]) [address] [place] [address] Calcium [Mass/Vol] 8.8 mg/dL Normal 8.6-10.3 [facility] Comment on above: Performed By: #### L [id number] #### [facility] ([facility]) [address] [place] [address] Chloride [Moles/Vol] 99 mmol/L Normal 98-107 [facility] Comment on above: Performed By: #### L [id number] #### [facility] ([facility]) [address] [place] [address] CO2 [Moles/Vol] 13 mmol/L Invalid Interpretation Code [facility] Comment on above: Performed By: #### L [id number] #### [facility] ([facility]) [address] [place] [address] Creatinine [Mass/Vol] 1.31 mg/dL High 0.70-1.30 [facility] Comment on above: Performed By: #### L [id number] #### [facility] ([facility]) [address] [place] [address] GLOMERULAR FILTRATION RATE ML/MIN/1.73 SQ M.PREDICTED 58.2 mL/min/1.73m*2 Low >60.0 [facility] Comment on above: Result Comment: The [facility]???s estimated glomerular filtration rate (eGFR) will no [...] group of individuals. Performed By: #### L [id number] #### [facility] ([facility]) [address] [place] [address] Glucose [Mass/Vol] 264 mg/dL High 70-100 [facility] Comment on above: Performed By: #### L [id number] #### [facility] ([facility]) [address] [place] [address] Potassium [Moles/Vol] 5.7 mmol/L High 3.5-5.1 [facility] Comment on above: Performed By: #### L [id number] #### [facility] ([facility]) [address] [place] [address] Sodium [Moles/Vol] 129 mmol/L Low 136-145 [facility] Comment on above: Performed By: #### L [id number] #### [facility] ([facility]) [address] [place] [address] Urea nitrogen [Mass/Vol] 44 mg/dL High 7-25 [facility] Comment on above: Performed By: #### L [id number] #### [facility] ([facility]) [address] [facility] [place] [place] [address] UREA NITROGEN/CREATININE (MASS RATIO) IN SER/PLAS 33.6 Normal [facility] Comment on above: Performed By: #### L [id number] #### [facility] ([facility]) [address] [place] [address] BETA HYDROXYBUTYRATEon 04-28 BETA HYDROXYBUTYRATE (MMOL/L) IN SER/PLAS 6.22 mmol/L High 0.02-0.27 [facility] Comment on above: Performed By: #### L [id number] #### [facility] ([facility]) [address] [place] [address] BLOOD CULTUREon 04-28-2023 Bacteria identified Cx Nom (Bld) No growth at [address] [facility] Comment on above: Performed By: #### L [id number] #### [facility] [address] [place] [address] Bacteria identified Cx Nom (Bld) No growth at [address] [facility] Comment on above: Order Comment: From a different site than #1. Performed By: #### L [id number] ####[facility] ([facility])[address] [place] [address] CMV DNA, QUALITATIVE, PCRon 04-28-2023 CYTOMEGALOVIRUS QUAL. PCR Not detected Normal [facility] Comment on above: Result Comment: NOT DETECTED - A negative result does not rule out the presence of PCR inhibitors in the patient specimen or assay specific nucleic acid in concentrations below the level of detection by the assay. INTERPRETIVE INFORMATION: Cytomegalovirus Detection by PCR This test was developed and its performance characteristics determined by [facility]. It has not been cleared or approved by the [place] Food and Drug Administration. This test was performed in a CLIA certified laboratory and is intended for clinical purposes. Performed By: [facility] [address] [place] [address] Deli Cook: René Wick MD, PhD CLIA Number: [id number] Performed By: #### L [id number] #### [facility] ([facility]) [address] [place] [address] CYTOMEGALOVIRUS SOURCE Blood Normal [facility] Comment on above: Performed By: #### L [id number] #### [facility] ([facility]) [address] [place] [address] CONSULTon 04-28-2023 CONSULT - Attestation signed by [...] as a transfer from outside hospital in [place] for concerns of possible DKA, hyponatremia, and [...] nursing note reviewed. Exam conducted with a aerodynamic consultant present (Dr. Pan). Constitutional: General: He is [...] No ed (more content not included)... Normal [facility] HEMOGLOBIN A1Con 04-28-2023 Glucose [Mass/Vol] 372 mg/dL Normal [facility] Comment on above: Order Comment: NO VA RIANT Performed By: #### L [id number] ####[facility] ([facility])[address] [place] [address] HbA1c (Bld) [Mass fraction] 14.6 % High 4.0-6.0 [facility] Comment on above: Order Comment: NO VA RIANT Performed By: #### L [id number] ####[facility] ([facility])[address] [place] [address] NURSNOTEon 04-28-[address] Nguyen ( nephrology) regarding placing powerglide if pt a candidate, ok with placement on right arm. Normal [facility] OSMOLALITYon 04-28-2023 OSMOLALITY MEASURED 310 mOsm/kg High 275-295 [facility] Comment on above: Result Comment: Test Performed by [facility] [address] [place] [address] - Released 04/28/2023 22:42 Performed By: #### L [id number] #### [facility] ([facility]) [address] [place] [address] OSMOLALITY, URINEon 04-28-20 23 OSMOLALITY, URINE 446 mOsm/kg Normal 80-1300 [facility] Comment on above: Result Comment: Test Performed by [facility] [address] [place] [address] - Released 04/29/2023 03:35 Performed By: #### L [id number] #### [facility] ([facility]) [address] [place] [address] POCT GLUCOSE METER UNSOLICIT ED RESULTSon 04-28-2023 Glucose [Mass/Vol] 141 mg/dL High 70-105 [facility] Comment on above: Order Comment: Waive d Testing in the ED is performed under the ED CLIA certificate #[id number]. Result Comment: ladarius al Performed By: #### L [id number] ####[facility] ([facility])[address] [place] [address] Glucose [Mass/Vol] 99 mg/dL Normal 70-105 [facility] Comment on above: Order Comment: Waive d Testing in the ED is performed under the ED CLIA certificate #[id number]. Result Comment: besc obe Performed By: #### L [id number] ####[facility] ([facility])[address] [place] [address] Glucose [Mass/Vol] 115 mg/dL High 70-105 [facility] Comment on above: Order Comment: Waive d Testing in the ED is performed under the ED CLIA certificate #[id number]. Result Comment: besc obe Performed By: #### L [id number] ####[facility] ([facility])[address] [place] [address] Glucose [Mass/Vol] 145 mg/dL High 70-105 [facility] Comment on above: Order Comment: Waive d Testing in the ED is performed under the ED CLIA certificate #[id number]. Result Comment: wwar rad Performed By: #### L [id number] ####[facility] ([facility])[address] [place] [address] Glucose [Mass/Vol] 165 mg/dL High 70-105 [facility] Comment on above: Order Comment: Waive d Testing in the ED is performed under the ED CLIA certificate #[id number]. Result Comment: besc obe Performed By: #### L [id number] #### [facility] ([facility]) [address] [place] [address] Glucose [Mass/Vol] 203 mg/dL High 70-105 [facility] Comment on above: Order Comment: Waive d Testing in the ED is performed under the ED CLIA certificate #[id number]. Result Comment: [email or web address] Performed By: #### L [id number] #### [facility] ([facility]) [address] [place] [address] Glucose [Mass/Vol] 247 mg/dL High 70-105 [facility] Comment on above: Order Comment: Waive d Testing in the ED is performed under the ED CLIA certificate #[id number]. Result Comment: wwar rad Performed By: #### L [id number] #### [facility] ([facility]) [address] [place] [address] Glucose [Mass/Vol] 315 mg/dL High 70-105 [facility] Comment on above: Order Comment: Waive d Testing in the ED is performed under the ED CLIA certificate #[id number]. Result Comment: wwar rad Performed By: #### L [id number] #### [facility] ([facility]) [address] [place] [address] Glucose [Mass/Vol] 356 mg/dL High 70-105 [facility] Comment on above: Order Comment: Waive d Testing in the ED is performed under the ED CLIA certificate #[id number]. Result Comment: abrosa rbo Performed By: #### L [id number] #### [facility] ([facility]) [address] [place] [address] Glucose [Mass/Vol] 312 mg/dL High 70-105 [facility] Comment on above: Order Comment: Waive d Testing in the ED is performed under the ED CLIA certificate #[id number]. Result Comment: wwar rad Performed By: #### L [id number] ####[facility] ([facility])[address] [place] [address] PTH, INTACTon 04-28-2023 PARATHYRIN INTACT (PG/ML) IN SER/PLAS 48 pg/mL Normal [facility] Comment on above: Performed By: #### L [id number] ####[facility] ([facility])[address] [place] [address] TACROLIMUS LEVELon Tacrolimus (Bld) [Mass/Vol] 11.6 ng/mL Normal 5.0-20.0 [facility] Comment on above: Result Comment: The GARCIA TUBE BLOWER Tacrolimus assay is a delayed one-step immunoassay for the quantitative determination of tacrolimus in human whole blood using the chemiluminescent microparticle immunoassay (CMIA) technology with flexible assay protocols, referred to as Chemiflex. Performed By: #### L [id number] #### [facility] ([facility]) [address] [place] [address] TROPONIN Ion 04-28-2023 Troponin I.cardiac [Mass/Vol] 0.02 ng/mL Normal 0.00-0.04 [facility] Comment on above: Performed By: #### L [id number] #### [facility] ([facility]) [address] [place] [address] Troponin I.cardiac [Mass/Vol] 0.02 ng/mL Normal 0.00-0.04 [facility] Comment on above: Performed By: #### L [id number] #### [facility] ([facility]) [address] [place] [address] APTTon 04-27-2023 ACTIVATED PARTIAL THROMBOPLASTIN TIME IN PPP BY COAGULATION ASSAY 26.1 Seconds Normal 25.0-35.0 [facility] Comment on above: Result Comment: Clin ical significance of the APTT is questionable in the presence of heparin. Performed By: #### L [id number] #### [facility] [address] [place] [address] B-TYPE NATRIURETIC PEPTIDEon 04-27-2023 Natriuretic peptide B (Bld) [Mass/Vol] 98 pg/mL Normal 0-100 [facility] Comment on above: Performed By: #### L [id number] ####[facility] ([facility])[address] [place] [address] BLOOD CULTUREon 04-27-2023 Bacteria identified Cx Nom (Bld) No growth at 5 days Normal [facility] Comment on above: Performed By: #### L [id number] #### [facility] [address] [place] [address] Order Comment: From a different site than #1. CBC WITH AUTO DIFFERENTIALon 04-27-2023 Basophils (Bld) [#/Vol] 0.04 10*3/uL Normal 0.00-0.20 [facility] Comment on above: Performed By: #### L [id number] #### [facility] ([facility]) [address] [place] [address] Basophils/100 WBC (Bld) 0.4 % Normal 0.0-1.0 [facility] Comment on above: Performed By: #### L [id number] #### [facility] ([facility]) [address] [place] [address] Eosinophils (Bld) [#/Vol] 0.09 10*3/uL Normal 0.00-0.50 [facility] Comment on above: Performed By: #### L [id number] #### [facility] ([facility]) [address] [place] [address] Eosinophils/100 WBC (Bld) 1.0 % Normal 0.0-6.0 [facility] Comment on above: Performed By: #### L [id number] #### [facility] ([facility]) [address] [place] [address] Erythrocyte distribution width (RBC) [Ratio] 13.1 % Normal 11.5-15.0 [facility] Comment on above: Performed By: #### L [id number] #### [facility] ([facility]) [address] [place] [address] ERYTHROCYTE MEAN CORPUSCULAR HEMOGLOBIN CONCENTRATION (G/DL) BY AUTOMATED 33.9 g/dL Normal 32.0-35.0 [facility] Comment on above: Performed By: #### L [id number] #### [facility] ([facility]) [address] [place] [address] Hematocrit (Bld) [Volume fraction] 32.7 % Low 39.0-55.0 [facility] Comment on above: Performed By: #### L [id number] #### [facility] ([facility]) [address] [place] [address] Hemoglobin (Bld) [Mass/Vol] 11.1 g/dL Low 13.0-17.0 [facility] Comment on above: Performed By: #### L [id number] #### [facility] ([facility]) [address] [place] [address] Immature granulocytes (Bld) [#/Vol] 0.15 10*3/uL Normal 0.00-0.20 [facility] Comment on above: Performed By: #### L [id number] #### [facility] ([facility]) [address] [place] [address] Immature granulocytes/100 WBC (Bld) 1.6 % High 0.0-1.0 [facility] Comment on above: Performed By: #### L [id number] #### [facility] ([facility]) [address] [place] [address] Lymphocytes (Bld) [#/Vol] 1.04 10*3/uL Low 1.20-4.00 [facility] Comment on above: Performed By: #### L [id number] #### [facility] ([facility]) [address] [place] [address] Lymphocytes/100 WBC (Bld) 11.3 % Low 20.0-45.0 [facility] Comment on above: Performed By: #### L [id number] #### [facility] ([facility]) [address] [place] [address] MCH (RBC) [Entitic mass] 29.3 pg Normal 27.0-33.0 [facility] Comment on above: Performed By: #### L [id number] #### [facility] ([facility]) [address] [place] [address] MCV (RBC) [Entitic vol] 86.3 fL Normal 82.0-98.0 [facility] Comment on above: Performed By: #### L [id number] #### [facility] ([facility]) [address] [place] [address] Monocytes (Bld) [#/Vol] 0.96 10*3/uL Normal 0.10-1.00 [facility] Comment on above: Performed By: #### L [id number] #### [facility] ([facility]) [address] [place] [address] Monocytes/100 WBC (Bld) 10.5 % Normal 5.0-12.0 [facility] Comment on above: Performed By: #### L [id number] #### [facility] ([facility]) [address] [place] [address] Neutrophils (Bld) [#/Vol] 6.90 10*3/uL Normal 1.60-7.60 [facility] Comment on above: Performed By: #### L [id number] #### [facility] ([facility]) [address] [place] [address] Neutrophils/100 WBC (Bld) 75.2 % High 40.0-72.0 [facility] Comment on above: Performed By: #### L [id number] #### [facility] ([facility]) [address] [place] [address] NRBC (PER 100 WBCS) BY AUTOMATED COUNT 0.0 % Normal 0 [facility] Comment on above: Performed By: #### L [id number] #### [facility] ([facility]) [address] [place] [address] PLATELETS (10*3/UL) IN BLOOD AUTOMATED COUNT 301 10*3/uL Normal 150-400 [facility] Comment on above: Performed By: #### L [id number] #### [facility] ([facility]) [address] [place] [address] RBC (Bld) [#/Vol] 3.79 10*6/uL Low 4.20-5.70 [facility] Comment on above: Performed By: #### L [id number] #### [facility] ([facility]) [address] [place] [address] WBC (Bld) [#/Vol] 9.18 10*3/uL Normal 4.00-10.60 [facility] Comment on above: Performed By: #### L [id number] #### [facility] ([facility]) [address] [place] [address] COMPREHENSIVE METABOLIC PANE Claudio 04-27-2023 Albumin [Mass/Vol] 3.8 g/dL Normal 3.5-5.7 [facility] Comment on above: Performed By: #### L [id number] #### [facility] ([facility]) [address] [place] [address] ALP [Catalytic activity/Vol] 100 U/L Normal 34-104 [facility] Comment on above: Performed By: #### L [id number] #### [facility] ([facility]) [address] [place] [address] ALT [Catalytic activity/Vol] 12 U/L Normal 7-52 [facility] Comment on above: Performed By: #### L [id number] #### [facility] ([facility]) [address] [place] [address] Anion gap [Moles/Vol] 15 mmol/L Normal 7-20 [facility] Comment on above: Performed By: #### L [id number] #### [facility] ([facility]) [address] [place] [address] Performed By: #### L [id number] #### [facility] ([facility]) [address] [place] [address] AST [Catalytic activity/Vol] 12 U/L Low 13-39 [facility] Comment on above: Performed By: #### L [id number] #### [facility] ([facility]) [address] [place] [address] Bilirubin [Mass/Vol] 0.4 mg/dL Normal 0.3-1.0 [facility] Comment on above: Performed By: #### L [id number] #### [facility] ([facility]) [address] [place] [address] Calcium [Mass/Vol] 8.6 mg/dL Normal 8.6-10.3 [facility] Comment on above: Performed By: #### L [id number] #### [facility] ([facility]) [address] [place] [address] Performed By: #### L [id number] #### [facility] ([facility]) [address] [place] [address] Chloride [Moles/Vol] 101 mmol/L Normal 98-107 [facility] Comment on above: Performed By: #### L [id number] #### [facility] ([facility]) [address] [place] [address] Performed By: #### L [id number] #### [facility] ([facility]) [address] [place] [address] CO2 [Moles/Vol] 18 mmol/L Low 21-31 [facility] Comment on above: Performed By: #### L [id number] #### [facility] ([facility]) [address] [place] [address] Performed By: #### L [id number] #### [facility] ([facility]) [address] [place] [address] Creatinine [Mass/Vol] 1.36 mg/dL High 0.70-1.30 [facility] Comment on above: Performed By: #### L [id number] #### [facility] ([facility]) [address] [place] [address] Performed By: #### L [id number] #### [facility] ([facility]) [address] [place] [address] GLOMERULAR FILTRATION RATE ML/MIN/1.73 SQ M.PREDICTED 55.6 mL/min/1.73m*2 Low >60.0 [facility] Comment on above: Result Comment: [facility]???s estimated glomerular filtration rate (eGFR) will no [...] individuals. Performed By: #### L [id number] #### [facility] ([facility]) [address] [place] [address] Performed By: #### L [id number] #### [facility] ([facility]) [address] [place] [address] Glucose [Mass/Vol] 149 mg/dL High 70-100 [facility] Comment on above: Performed By: #### L [id number] #### [facility] ([facility]) [address] [place] [address] Performed By: #### L [id number] #### [facility] ([facility]) [address] [place] [address] Potassium [Moles/Vol] 4.8 mmol/L Normal 3.5-5.1 [facility] Comment on above: Performed By: #### L [id number] #### [facility] ([facility]) [address] [place] [address] Performed By: #### L [id number] #### [facility] ([facility]) [address] [place] [address] Protein [Mass/Vol] 6.0 g/dL Normal 6.0-8.3 [facility] Comment on above: Performed By: #### L [id number] #### [facility] ([facility]) [address] [place] [address] Sodium [Moles/Vol] 129 mmol/L Low 136-145 [facility] Comment on above: Performed By: #### L [id number] #### [facility] ([facility]) [address] [place] [address] Performed By: #### L [id number] #### [facility] ([facility]) [address] [place] [address] Urea nitrogen [Mass/Vol] 45 mg/dL High 7-25 [facility] Comment on above: Performed By: #### L [id number] #### [facility] ([facility]) [address] [place] [address] Performed By: #### L [id number] #### [facility] ([facility]) [address] [place] [address] UREA NITROGEN/CREATININE (MASS RATIO) IN SER/PLAS 33.1 Normal [facility] Comment on above: Performed By: #### L [id number] #### [facility] ([facility]) [address] [place] [address] Performed By: #### L [id number] #### [facility] ([facility]) [address] [place] [address] CREATININE, URINE, RANDOMon 04-27-2023 Creatinine (U) [Mass/Vol] 100.0 mg/dL Normal 26-299 [facility] Comment on above: Performed By: #### L [id number] #### [facility] ([facility]) [address] [place] [address] LACTIC ACID WITH 4 HOUR REFL EXon 04-27-2023 LACTATE (MMOL/L) IN SER/PLAS 0.8 mmol/L Normal 0.5-2.2 [facility] Comment on above: Performed By: #### L [id number] #### [facility] ([facility]) [address] [place] [address] MAGNESIUMon 04-27-2023 Magnesium [Mass/Vol] 1.7 mg/dL Low 1.9-2.7 [facility] Comment on above: Performed By: #### L [id number] ####[facility] ([facility])[address] [place] [address] PHOSPHORUSon 04-27-2023 Magnesium [Mass/Vol] 3.7 mg/dL Normal 2.5-5.0 [facility] Comment on above: Performed By: #### L [id number] ####[facility] ([facility])[address] [place] [address] POCT GLUCOSE METER UNSOLICIT ED RESULTSon 04-27-2023 Glucose [Mass/Vol] 139 mg/dL High 70-105 [facility] Comment on above: Order Comment: Waive d Testing in the ED is performed under the ED CLIA certificate #[id number]. Result Comment: acle jordin Performed By: #### L [id number] #### [facility] [address] [place] [address] PROTEIN, URINE, RANDOMon Protein (U) [Mass/Vol] 47.2 mg/dL Normal [facility] Comment on above: Result Comment: Ther e are no established reference values for random urine specimens. Performed By: #### L [id number] #### [facility] ([facility]) [address] [place] [address] PROTIME-INRon 04-27-2023 INR IN PPP BY COAGULATION ASSAY 1.13 High 0.90-1.10 [facility] Comment on above: Result Comment: ACCC P [...] RANGE. CHEST 1995;108:[id number]. Performed By: #### L [id number] #### [facility] [address] [place] [address] PROTHROMBIN TIME (PT) IN PPP BY COAGULATION ASSAY 14.5 Seconds Normal 12.3-14.8 [facility] Comment on above: Performed By: #### L [id number] #### [facility] [address] [place] [address] SODIUM, URINE, RANDOMon 04-11 Sodium (U) [Moles/Vol] 35 mmol/L Normal [facility] Comment on above: Performed By: #### L [id number] ####[facility] ([facility])[address] [place] [address] TROPONIN Ion 04-27-2023 Troponin I.cardiac [Mass/Vol] 0.04 ng/mL Normal 0.00-0.04 [facility] Comment on above: Performed By: #### L [id number] #### [facility] ([facility]) [address] [place] [address] URINALYSIS MICROSCOPIC WITH REFLEX CULTUREon 04-27-2023 CASTS IN URINE Normal [facility] Comment on above: Performed By: #### L [id number] #### [facility] ([facility]) [address] [place] [address] CRYSTALS IN URINE Normal [facility] Comment on above: Performed By: #### L [id number] #### [facility] ([facility]) [address] [place] [address] OTHER MICROSCOPIC ELEMENTS Normal [facility] Comment on above: Performed By: #### L [id number] #### [facility] ([facility]) [address] [place] [address] RBC (#/HPF) IN URINE SEDIMENT 21-50 Abnormal None Seen [facility] Comment on above: Performed By: #### L [id number] #### [facility] ([facility]) [address] [place] [address] SQUAMOUS EPITHELIAL CELLS (#/HPF) IN URINE SEDIMENT Occasional Normal None Seen, Occasional [facility] Comment on above: Performed By: #### L [id number] #### [facility] ([facility]) [address] [place] [address] WBC (LEUKOCYTE) (#/HPF) IN URINE SEDIMENT 6-10 Abnormal None Seen [facility] Comment on above: Performed By: #### L [id number] #### [facility] ([facility]) [address] [place] [address] URINALYSIS WITH REFLEX CULTU REon 04-27-2023 BILIRUBIN, TOTAL PRESENCE IN URINE Negative Normal Negative [facility] Comment on above: Performed By: #### L [id number] ####[facility] ([facility])[address] [place] [address] Clarity (U) Clear Normal Clear [facility] Comment on above: Performed By: #### L [id number] ####[facility] ([facility])[address] [place] [address] Color (U) Yellow Normal Yellow [facility] Comment on above: Performed By: #### L [id number] ####[facility] ([facility])[address] [place] [address] Glucose (U) [Mass/Vol] Negative Normal Negative [facility] Comment on above: Performed By: #### L [id number] ####[facility] ([facility])[address] [place] [address] HEMOGLOBIN PRESENCE IN URINE Moderate Abnormal Negative [facility] Comment on above: Performed By: #### L [id number] ####[facility] ([facility])[address] [place] [address] Ketones Ql (U) 20 mg/dL Abnormal Negative [facility] Comment on above: Performed By: #### L [id number] ####[facility] ([facility])[address] [place] [address] LEUKOCYTE ESTERASE PRESENCE IN URINE BY TEST STRIP Trace Abnormal Negative [facility] Comment on above: Performed By: #### L [id number] ####[facility] ([facility])[address] [place] [address] NITRITE PRESENCE IN URINE Negative Normal Negative [facility] Comment on above: Performed By: #### L [id number] ####[facility] ([facility])[address] [place] [address] pH (U) 5.0 [pH] Normal 5.0-8.0 [facility] Comment on above: Performed By: #### L [id number] ####[facility] ([facility])[address] [place] [address] Protein (U) [Mass/Vol] 30 mg/dL Abnormal Negative [facility] Comment on above: Performed By: #### L [id number] ####[facility] ([facility])[address] [place] [address] Specific gravity (U) [Rel density] 1.015 Normal 1.015-1.020 [facility] Comment on above: Performed By: #### L [id number] ####[facility] ([facility])[address] [place] [address] Office Visiton 04-22-2023 Follow-up visit [id number] Roger Suarez 1950 M Date Provider Department [...] at Mother Father Sister Brother Level of Service:42357 AR OFFICE/OUTPATIENT ESTABLISHED LOW MDM 20-29 MIN Normal [facility] Documentationon 04-07-2023 Documentation [id number] Roger Suarez 1950 M Date Provider Department Center 04/07/2023 [facility] ULU None Family History Problem Relation Age of Onset Diabetes Mother Hypertension Mother Coronary artery disease Mother Other Mother Cystic kidney disease Mother Hypertension Father Skin cancer Father Cystic kidney disease Father Cystic kidney disease Sister Heart disease Brother ALS Brother Cystic kidney disease Brother Family Status - Relation Status Age at Mother Father Sister Brother Normal [facility] Orders Onlyon 04-02-2023 Orders Only [id number] ErickRoger Tyson 1950 M Date Provider Department Center 04/02/2023 [...] Age at Mother Father Sister Brother Normal [facility] FK506 (TACROLIMUS) WHOLE BLO ODon 10-06-2022 Tacrolimus (FK506), Blood 3.8 ng/mL Normal 2.0-20.0 [facility] Comment on above: Result Comment: Trou gh (immediately following transplant) 15.0 . Trough (steady state, 2 weeks or more after transplant): 3.0 - 8.0 . Performed by LC-MS/MS technology. Performed By: #### U CLINT, CMP, LIPID, DBIL, PHOS, MG #### [facility] [address] [place] [address] Dr. Brea Causey BILIRUBIN CONJUGATED (DIRECT )on 10-03-2022 BILI, CONJUGATED 0.1 mg/dL Normal 0.0-0.2 [facility] Comment on above: Performed By: #### C BC #### [facility] [address] [place] [address] Dr. Brea Causey CBC AUTO DIFFon 10-03-2022 BASO # 0.0 103/ul Normal 0.0-0.1 [facility] Comment on above: Performed By: #### U CLINT, CMP, LIPID, DBIL, PHOS, MG #### [facility] [address] [place] [address] Dr. Brea Causey Basophils/100 WBC (Bld) 0.5 % Normal 0.2-2.0 [facility] Comment on above: Performed By: #### U CLINT, CMP, LIPID, DBIL, PHOS, MG #### [facility] [address] [place] [address] Dr. Brea Causey EO # 0.1 103/ul Normal 0.0-0.7 [facility] Comment on above: Performed By: #### U CLINT, CMP, LIPID, DBIL, PHOS, MG #### [facility] [address] [address] [address] Brea Causey Eosinophils/100 WBC (Bld) 2.3 % Normal 0.9-7.0 [facility] Comment on above: Performed By: #### U CLINT, CMP, LIPID, DBIL, PHOS, MG #### [facility] [address] [address] [address] Brea Causey Erythrocyte distribution width (RBC) [Ratio] 13.2 % Normal 11.0-15.0 [facility] Comment on above: Performed By: #### U CLINT, CMP, LIPID, DBIL, PHOS, MG #### [facility] [address] [place] [address] Dr. Brea Causey Hematocrit (Bld) [Volume fraction] 35.0 % Critically low 42.0-54.0 [facility] Comment on above: Performed By: #### U CLINT, CMP, LIPID, DBIL, PHOS, MG #### [facility] [address] [place] [address] Dr. Brea Causey Hemoglobin (Bld) [Mass/Vol] 11.7 g/dL Critically low 14.0-18.0 [facility] Comment on above: Performed By: #### U CLINT, CMP, LIPID, DBIL, PHOS, MG #### [facility] [address] [address] [address] Brea Causey IG # 0.06 10e3/ul Critically high 0.00-0.03 [facility] Comment on above: Performed By: #### U CLINT, CMP, LIPID, DBIL, PHOS, MG #### [facility] [address] [address] [address] Brea Causey IG % 1.1 % Critically high 0.0-0.5 [facility] Comment on above: Performed By: #### U CLINT, CMP, LIPID, DBIL, PHOS, MG #### [facility] [address] [address] [address] Brea Causey LYMPH # 0.8 103/ul Critically low 1.2-3.8 [facility] Comment on above: Performed By: #### U CLINT, CMP, LIPID, DBIL, PHOS, MG #### [facility] [address] [place] [address] Dr. Brea Causey Lymphocytes/100 WBC (Bld) 14.9 % Critically low 20.5-60.0 [facility] Comment on above: Performed By: #### U CLINT, CMP, LIPID, DBIL, PHOS, MG #### [facility] [address] [place] [address] Dr. Brea Causey MANUAL DIFF REQ NO Normal [facility] Comment on above: Performed By: #### U CLINT, CMP, LIPID, DBIL, PHOS, MG #### [facility] [address] [place] [address] Dr. Brea Causey MCH (RBC) [Entitic mass] 28.8 pg Normal 25.9-34.0 [facility] Comment on above: Performed By: #### U CLINT, CMP, LIPID, DBIL, PHOS, MG #### [facility] [address] [place] [address] Dr. Brea Causey MCHC (RBC) [Mass/Vol] 33.4 g/dL Normal 29.9-35.2 [facility] Comment on above: Performed By: #### U CLINT, CMP, LIPID, DBIL, PHOS, MG #### [facility] [address] [place] [address] Dr. Brea Causey MCV (RBC) [Entitic vol] 86.2 fL Normal 80.0-94.0 [facility] Comment on above: Performed By: #### U CLINT, CMP, LIPID, DBIL, PHOS, MG #### [facility] [address] [place] [address] Dr. Brea Causey MONO # 0.5 103/ul Normal 0.3-0.8 [facility] Comment on above: Performed By: #### U CLINT, CMP, LIPID, DBIL, PHOS, MG #### [facility] [address] [place] [address] Dr. Brea Causey Monocytes/100 WBC (Bld) 9.1 % Normal 1.7-12.0 [facility] Comment on above: Performed By: #### U CLINT, CMP, LIPID, DBIL, PHOS, MG #### [facility] [address] [place] [address] Dr. Brea Causey NEUT # 4.1 103/ul Normal 1.4-6.5 [facility] Comment on above: Performed By: #### U CLINT, CMP, LIPID, DBIL, PHOS, MG #### [facility] [address] [place] [address] Dr. Bera Causey Neutrophils/100 WBC (Bld) 72.1 % Normal 43.0-75.0 [facility] Comment on above: Performed By: #### U CLINT, CMP, LIPID, DBIL, PHOS, MG #### [facility] [address] [place] [address] Dr. Brea Causey Platelet mean volume (Bld) [Entitic vol] 9.0 fL Critically low 9.5-13.5 [facility] Comment on above: Performed By: #### U CLINT, CMP, LIPID, DBIL, PHOS, MG #### [facility] [address] [place] [address] Dr. Brea Causey PLT 211 103/ul Normal 150-450 [facility] Comment on above: Performed By: #### U CLINT, CMP, LIPID, DBIL, PHOS, MG #### [facility] [address] [place] [address] Dr. Brea Causey RBC 4.06 106/ul Critically low 4.70-6.10 [facility] Comment on above: Performed By: #### U CLINT, CMP, LIPID, DBIL, PHOS, MG #### [facility] [address] [place] [address] Dr. Brea Causey WBC 5.6 103/ul Normal 4.0-11.0 [facility] Comment on above: Performed By: #### U CLINT, CMP, LIPID, DBIL, PHOS, MG #### [facility] [address] [place] [address] Dr. Brea Causey LIPID PROFILEon 10-03-2022 CHOL-HDL RATIO NORM SEE BELOW Normal [facility] Comment on above: Result Comment: 3.3 - 4.4 LOW RISK 4.4 - 7.1 AVERAGE RISK 7.1 - 11.0 MODERATE RISK >11.0 HIGH RISK Performed By: #### C BC #### [facility] [address] [address] [address] Brea Causey Cholesterol [Mass/Vol] 93 mg/dL Normal <=200 [facility] Comment on above: Performed By: #### C BC #### [facility] [address] [address] [address] Brea Causey Cholesterol in HDL [Mass/Vol] 43 mg/dL Normal 40-60 [facility] Comment on above: Performed By: #### C BC #### [facility] [address] [address] [address] Brea Causey Cholesterol in LDL [Mass/Vol] 37.6 mg/dL Normal [facility] Comment on above: Performed By: #### C BC #### [facility] [address] [address] [address] Brea Causey Cholesterol.total/Cho lesterol in HDL [Mass ratio] 2.2 {ratio} Normal [facility] Comment on above: Performed By: #### C BC #### [facility] [address] [address] [address] Brea Causey HDL NORMAL > or = 60 mg/dl - LO W CARDIOVASCULAR RISK <40 mg/dl - HIGH CARDIOVASCULAR RISK Normal [facility] Comment on above: Performed By: #### C BC #### [facility] [address] [address] [address] Brea Causey LDL CALC NORMAL SEE BELOW Normal [facility] Comment on above: Result Comment: <100 mg/dl OPTIMAL 100 - 129 mg/dl NEAR OR ABOVE OPTIMAL 130 - 159 mg/dl BORDERLINE HIGH 160 - 189 mg/dl HIGH >190 mg/dl VERY HIGH Performed By: #### C BC #### [facility] [address] [address] [address] Brea Causey Triglyceride [Mass/Vol] 62 mg/dL Normal <=150 [facility] Comment on above: Performed By: #### C BC #### [facility] [address] [place] [address] Dr. Brea Causey VLDL CALC 12.4 mg/dL Normal [facility] Comment on above: Performed By: #### C BC #### [facility] [address] [place] [address] Dr. Brea Causey MAGNESIUMon 10-03-2022 Magnesium [Mass/Vol] 1.5 mg/dL Critically low 1.8-2.4 [facility] Comment on above: Performed By: #### C BC #### [facility] [address] [place] [address] Dr. Brea Causey PHOSPHORUSon 10-03-2022 Phosphate [Mass/Vol] 4.4 mg/dL Normal 2.6-4.7 [facility] Comment on above: Performed By: #### C BC #### [facility] [address] [place] [address] Dr. Brea Causey PROF 14(COMP METB)on 023 Albumin [Mass/Vol] 3.8 g/dL Normal 3.4-5.0 [facility] Comment on above: Performed By: #### C BC #### [facility] [address] [place] [address] Dr. Brea Causey Albumin/Globulin [Mass ratio] 1.1 {ratio} Normal [facility] Comment on above: Performed By: #### C BC #### [facility] [address] [place] [address] Dr. Brea Causey ALP [Catalytic activity/Vol] 190 U/L Critically high 46-116 [facility] Comment on above: Performed By: #### C BC #### [facility] [address] [place] [address] Dr. Brea Causey ALT [Catalytic activity/Vol] 26 U/L Normal 16-63 [facility] Comment on above: Performed By: #### C BC #### [facility] [address] [place] [address] Dr. Brea Causey Anion gap [Moles/Vol] 15.3 mmol/L Normal [facility] Comment on above: Performed By: #### C BC #### [facility] [address] [place] [address] Dr. Brea Causey AST [Catalytic activity/Vol] 23 U/L Normal 15-37 [facility] Comment on above: Performed By: #### C BC #### [facility] [address] [place] [address] Dr. Brea Causey Bilirubin [Mass/Vol] 0.4 mg/dL Normal 0.2-1.0 [facility] Comment on above: Performed By: #### C BC #### [facility] [address] [place] [address] Dr. Brea Causey Calcium [Mass/Vol] 7.8 mg/dL Critically low 8.5-10.1 [facility] Comment on above: Performed By: #### C BC #### [facility] [address] [place] [address] Dr. Brea Causey Chloride [Moles/Vol] 97 mmol/L Critically low 98-107 [facility] Comment on above: Performed By: #### C BC #### [facility] [address] [place] [address] Dr. Brea Causey CO2 [Moles/Vol] 25.6 mmol/L Normal 21.0-32.0 [facility] Comment on above: Performed By: #### C BC #### [facility] [address] [place] [address] Dr. Brea Causey Creatinine [Mass/Vol] 1.03 mg/dL Normal 0.70-1.30 [facility] Comment on above: Performed By: #### C BC #### [facility] [address] [place] [address] Dr. Brea Causey EGFR-AF SALVADOREAN >60 Normal >=60 [facility] Comment on above: Performed By: #### C BC #### [facility] [address] [place] [address] Dr. Brea Causey EGFR-NON AF SALVADOREAN >60 Normal >=60 [facility] Comment on above: Performed By: #### C BC #### [facility] [address] [address] [address] Brea Causey Globulin (S) [Mass/Vol] 3.6 g/dL Normal [facility] Comment on above: Performed By: #### C BC #### [facility] [address] [address] [address] Brea Causey Glucose [Mass/Vol] 188 mg/dL Critically high 74-106 [facility] Comment on above: Performed By: #### C BC #### [facility] [address] [address] [address] Brea Causey Potassium [Moles/Vol] 4.9 mmol/L Normal 3.5-5.1 [facility] Comment on above: Performed By: #### C BC #### [facility] [address] [address] [address] Brea Causey Protein [Mass/Vol] 7.4 g/dL Normal 6.4-8.2 [facility] Comment on above: Performed By: #### C BC #### [facility] [address] [address] [address] Brea Causey Sodium [Moles/Vol] 133 mmol/L Critically low 136-145 [facility] Comment on above: Performed By: #### C BC #### [facility] [address] [address] [address] Brea Causey Urea nitrogen [Mass/Vol] 11.0 mg/dL Normal 7.0-18.0 [facility] Comment on above: Performed By: #### C BC #### [facility] [address] [address] [address] Brea Causey Urea nitrogen/Creatinine [Mass ratio] 10.7 mg/mg Normal [facility] Comment on above: Performed By: #### C BC #### [facility] [address] [address] [address] Brea Causey URIC ACID SERUMon 10-03-2022 Urate [Mass/Vol] 5.7 mg/dL Normal 3.5-7.2 [facility] Comment on above: Performed By: #### C BC #### [facility] [address] [address] [address] Brea Causey BK VIRUS PCR QUANTon 023 BKV DNA QUANT PCR PLASMA Negative Normal Negative [facility] Comment on above: Result Comment: No B K DNA detected. . The linear range of the assay is 22 - 100,000,000 IU/mL. Performed By: #### U CLINT, CMP, LIPID, DBIL, PHOS, MG #### [facility] [address] [address] [address] Brea Causey Log10 BKV DNA Plasma Normal [facility] Comment on above: Performed By: #### U CLINT, CMP, LIPID, DBIL, PHOS, MG #### [facility] [address] [address] [address] Brea Causey FK506 (TACROLIMUS) WHOLE BLO ODon 09-02-2022 Tacrolimus (FK506), Blood 3.8 ng/mL Normal 2.0-20.0 [facility] Comment on above: Result Comment: Trou gh (immediately following transplant) 15.0 . Trough (steady state, 2 weeks or more after transplant): 3.0 - 8.0 . Performed by LC-MS/MS technology. Performed By: #### U CLNIT, CMP, LIPID, DBIL, PHOS, MG #### [facility] [address] [address] [address] Brea Causey [facility]OSTERONE, FREE,DIRECT[facility]2022 Free Testosterone(Direct) 9.7 pg/mL Normal 6.6-18.1 [facility] Comment on above: Result Comment: Perf ormed at: BN Performed By: #### U CLINT, CMP, LIPID, DBIL, PHOS, MG #### [facility] [address] [place] [address] Dr. Brea Causey Testosterone [Mass/Vol] 565 ng/dL Normal 264-916 [facility] Comment on above: Result Comment: Adul t male reference interval is based on a population of healthy nonobese males (BMI <30) between 19 and 39 years old. mikel Harris. JCEM 2017,102;3284-2542. PMID: [id number]. Performed at: CB Performed By: #### U CLINT, CMP, LIPID, DBIL, PHOS, MG #### [facility] [address] [place] [address] Dr. Brea Causey BILIRUBIN CONJUGATED (DIRECT )on 08-30-2022 BILI, CONJUGATED 0.1 mg/dL Normal 0.0-0.2 [facility] Comment on above: Performed By: #### U CLINT, CMP, LIPID, DBIL, PHOS, MG #### [facility] [address] [place] [address] Dr. Brea Causey CBC AUTO DIFFon 08-30-2022 BASO # 0.0 103/ul Normal 0.0-0.1 [facility] Comment on above: Performed By: #### U CLINT, CMP, LIPID, DBIL, PHOS, MG #### [facility] [address] [place] [address] Dr. Brea Causey Basophils/100 WBC (Bld) 0.7 % Normal 0.2-2.0 [facility] Comment on above: Performed By: #### U CLINT, CMP, LIPID, DBIL, PHOS, MG #### [facility] [address] [place] [address] Dr. Brea Causey EO # 0.2 103/ul Normal 0.0-0.7 [facility] Comment on above: Performed By: #### U CLINT, CMP, LIPID, DBIL, PHOS, MG #### [facility] [address] [place] [address] Dr. Brea Causey Eosinophils/100 WBC (Bld) 3.6 % Normal 0.9-7.0 [facility] Comment on above: Performed By: #### U CLINT, CMP, LIPID, DBIL, PHOS, MG #### [facility] [address] [place] [address] Dr. Brea Causey Erythrocyte distribution width (RBC) [Ratio] 13.2 % Normal 11.0-15.0 [facility] Comment on above: Performed By: #### U CLINT, CMP, LIPID, DBIL, PHOS, MG #### [facility] [address] [place] [address] Dr. Brea Causey Hematocrit (Bld) [Volume fraction] 36.0 % Critically low 42.0-54.0 [facility] Comment on above: Performed By: #### U CLINT, CMP, LIPID, DBIL, PHOS, MG #### [facility] [address] [place] [address] Dr. Brea Causey Hemoglobin (Bld) [Mass/Vol] 12.2 g/dL Critically low 14.0-18.0 [facility] Comment on above: Performed By: #### U CLINT, CMP, LIPID, DBIL, PHOS, MG #### [facility] [address] [place] [address] Dr. Brea Causey IG # 0.07 10e3/ul Critically high 0.00-0.03 [facility] Comment on above: Performed By: #### U CLINT, CMP, LIPID, DBIL, PHOS, MG #### [facility] [address] [place] [address] Dr. Brea Causey IG % 1.2 % Critically high 0.0-0.5 [facility] Comment on above: Performed By: #### U CLINT, CMP, LIPID, DBIL, PHOS, MG #### [facility] [address] [place] [address] Dr. Brea Causey LYMPH # 0.9 103/ul Critically low 1.2-3.8 The [facility] Comment on above: Performed By: #### U CLINT, CMP, LIPID, DBIL, PHOS, MG #### [facility] [address] [place] [address] Dr. Brea Causey Lymphocytes/100 WBC (Bld) 15.0 % Critically low 20.5-60.0 [facility] Comment on above: Performed By: #### U CLINT, CMP, LIPID, DBIL, PHOS, MG #### [facility] [address] [place] [address] Dr. Brea Causey MANUAL DIFF REQ NO Normal The [facility] Comment on above: Performed By: #### U CLINT, CMP, LIPID, DBIL, PHOS, MG #### [facility] [address] [place] [address] Dr. Brea Causey MCH (RBC) [Entitic mass] 29.4 pg Normal 25.9-34.0 The [facility] Comment on above: Performed By: #### U CLINT, CMP, LIPID, DBIL, PHOS, MG #### [facility] [address] [place] [address] Dr. Brea Causey MCHC (RBC) [Mass/Vol] 33.9 g/dL Normal 29.9-35.2 The [facility] Comment on above: Performed By: #### U CLINT, CMP, LIPID, DBIL, PHOS, MG #### [facility] [address] [place] [address] Dr. Brea Causey MCV (RBC) [Entitic vol] 86.7 fL Normal 80.0-94.0 [facility] Comment on above: Performed By: #### U CLINT, CMP, LIPID, DBIL, PHOS, MG #### [facility] [address] [place] [address] Dr. Brea Causey MONO # 0.5 103/ul Normal 0.3-0.8 [facility] Comment on above: Performed By: #### U CLINT, CMP, LIPID, DBIL, PHOS, MG #### [facility] [address] [place] [address] Dr. Brea Causey Monocytes/100 WBC (Bld) 9.0 % Normal 1.7-12.0 The [facility] Comment on above: Performed By: #### U CLINT, CMP, LIPID, DBIL, PHOS, MG #### [facility] [address] [place] [address] Dr. Brea Causey NEUT # 4.2 103/ul Normal 1.4-6.5 [facility] Comment on above: Performed By: #### U CLINT, CMP, LIPID, DBIL, PHOS, MG #### [facility] [address] [place] [address] Dr. Brea Causey Neutrophils/100 WBC (Bld) 70.5 % Normal 43.0-75.0 [facility] Comment on above: Performed By: #### U CLINT, CMP, LIPID, DBIL, PHOS, MG #### [facility] [address] [address] [address] Brea Causey Platelet mean volume (Bld) [Entitic vol] 8.7 fL Critically low 9.5-13.5 [facility] Comment on above: Performed By: #### U CLINT, CMP, LIPID, DBIL, PHOS, MG #### [facility] [address] [address] [address] Brea Causey PLT 247 103/ul Normal 150-450 [facility] Comment on above: Performed By: #### U CLINT, CMP, LIPID, DBIL, PHOS, MG #### [facility] [address] [place] [address] Dr. Brea Causey RBC 4.15 106/ul Critically low 4.70-6.10 [facility] Comment on above: Performed By: #### U CLINT, CMP, LIPID, DBIL, PHOS, MG #### [facility] [address] [address] [address] Brea Causey WBC 5.9 103/ul Normal 4.0-11.0 [facility] Comment on above: Performed By: #### U CLINT, CMP, LIPID, DBIL, PHOS, MG #### [facility] [address] [address] [address] Brea Causey GLYCOHEMOGLOBIN A1Con 2022 ADA RECOMMENDATION SEE BELOW Normal The [facility] Comment on above: Result Comment: ADA RECOMMENDED LIMIT 4.0 - 6.0 ADA THERAPEUTIC TARGET < 7.0 ACTION SUGGESTED > 7.0 Performed By: #### U CLINT, CMP, LIPID, DBIL, PHOS, MG #### [facility] [address] [address] [address] Brea Causey Glucose [Mass/Vol] 177 mg/dL Normal The [facility] Comment on above: Performed By: #### U CLINT, CMP, LIPID, DBIL, PHOS, MG #### [facility] [address] [address] [address] Brea Causey HbA1c (Bld) [Mass fraction] 7.8 % Critically high 4.5-6.2 [facility] Comment on above: Performed By: #### U CLINT, CMP, LIPID, DBIL, PHOS, MG #### [facility] [address] [address] [address] Brea Causey LIPID PROFILEon 08-30-2022 CHOL-HDL RATIO NORM SEE BELOW Normal [facility] Comment on above: Result Comment: 3.3 - 4.4 LOW RISK 4.4 - 7.1 AVERAGE RISK 7.1 - 11.0 MODERATE RISK >11.0 HIGH RISK Performed By: #### U CLINT, CMP, LIPID, DBIL, PHOS, MG #### [facility] [address] [address] [address] Brea Causey Cholesterol [Mass/Vol] 96 mg/dL Normal <=200 [facility] Comment on above: Performed By: #### U CLINT, CMP, LIPID, DBIL, PHOS, MG #### [facility] [address] [address] [address] Brea Causey Cholesterol in HDL [Mass/Vol] 48 mg/dL Normal 40-60 [facility] Comment on above: Performed By: #### U CLINT, CMP, LIPID, DBIL, PHOS, MG #### [facility] [address] [address] [address] Brea Causey Cholesterol in LDL [Mass/Vol] 40.2 mg/dL Normal [facility] Comment on above: Performed By: #### U CLINT, CMP, LIPID, DBIL, PHOS, MG #### [facility] [address] [address] [address] Brea Causey Cholesterol.total/Cho lesterol in HDL [Mass ratio] 2.0 {ratio} Normal [facility] Comment on above: Performed By: #### U CLINT, CMP, LIPID, DBIL, PHOS, MG #### [facility] [address] [address] [address] Brea Causey HDL NORMAL > or = 60 mg/dl - LO W CARDIOVASCULAR RISK <40 mg/dl - HIGH CARDIOVASCULAR RISK Normal The [facility] Comment on above: Performed By: #### U CLINT, CMP, LIPID, DBIL, PHOS, MG #### [facility] [address] [place] [address] Dr. Brea Causey LDL CALC NORMAL SEE BELOW Normal The [facility] Comment on above: Result Comment: <100 mg/dl OPTIMAL 100 - 129 mg/dl NEAR OR ABOVE OPTIMAL 130 - 159 mg/dl BORDERLINE HIGH 160 - 189 mg/dl HIGH >190 mg/dl VERY HIGH Performed By: #### U CLINT, CMP, LIPID, DBIL, PHOS, MG #### [facility] [address] [address] [address] Brea Causey Triglyceride [Mass/Vol] 39 mg/dL Normal <=150 [facility] Comment on above: Performed By: #### U CLINT, CMP, LIPID, DBIL, PHOS, MG #### [facility] [address] [address] [address] Brea Causey VLDL CALC 7.8 mg/dL Normal The [facility] Comment on above: Performed By: #### U CLINT, CMP, LIPID, DBIL, PHOS, MG #### [facility] [address] [place] [address] Dr. Brea Causey MAGNESIUMon 08-30-2022 Magnesium [Mass/Vol] 1.5 mg/dL Critically low 1.8-2.4 The [facility] Comment on above: Performed By: #### U CLINT, CMP, LIPID, DBIL, PHOS, MG #### [facility] [address] [place] [address] Dr. Brea Causey PHOSPHORUSon 08-30-2022 Phosphate [Mass/Vol] 4.0 mg/dL Normal 2.6-4.7 The [facility] Comment on above: Performed By: #### U CLINT, CMP, LIPID, DBIL, PHOS, MG #### [facility] [address] [place] [address] Dr. Brea Causey PROF 14(COMP METB)on 023 Albumin [Mass/Vol] 3.8 g/dL Normal 3.4-5.0 [facility] Comment on above: Performed By: #### U CLINT, CMP, LIPID, DBIL, PHOS, MG #### [facility] [address] [place] [address] Dr. Brea Causey Albumin/Globulin [Mass ratio] 1.1 {ratio} Normal [facility] Comment on above: Performed By: #### U CLINT, CMP, LIPID, DBIL, PHOS, MG #### [facility] [address] [place] [address] Dr. Brea Causey ALP [Catalytic activity/Vol] 177 U/L Critically high 46-116 [facility] Comment on above: Performed By: #### U CLINT, CMP, LIPID, DBIL, PHOS, MG #### [facility] [address] [place] [address] Dr. Brea Causey ALT [Catalytic activity/Vol] 27 U/L Normal 16-63 [facility] Comment on above: Performed By: #### U CLINT, CMP, LIPID, DBIL, PHOS, MG #### [facility] [address] [place] [address] Dr. Brea Causey Anion gap [Moles/Vol] 12.1 mmol/L Normal [facility] Comment on above: Performed By: #### U CLINT, CMP, LIPID, DBIL, PHOS, MG #### [facility] [address] [place] [address] Dr. Brea Causey AST [Catalytic activity/Vol] 19 U/L Normal 15-37 [facility] Comment on above: Performed By: #### U CLINT, CMP, LIPID, DBIL, PHOS, MG #### [facility] [address] [address] [address] Brea Causey Bilirubin [Mass/Vol] 0.3 mg/dL Normal 0.2-1.0 [facility] Comment on above: Performed By: #### U CLINT, CMP, LIPID, DBIL, PHOS, MG #### [facility] [address] [place] [address] Dr. Brea Causey Calcium [Mass/Vol] 8.0 mg/dL Critically low 8.5-10.1 Th e [facility] Comment on above: Performed By: #### U CLINT, CMP, LIPID, DBIL, PHOS, MG #### [facility] [address] [address] [address] Brea Causey Chloride [Moles/Vol] 96 mmol/L Critically low 98-107 The [facility] Comment on above: Performed By: #### U CLINT, CMP, LIPID, DBIL, PHOS, MG #### [facility] [address] [address] [address] Brea Causey CO2 [Moles/Vol] 28.0 mmol/L Normal 21.0-32.0 [facility] Comment on above: Performed By: #### U CLINT, CMP, LIPID, DBIL, PHOS, MG #### [facility] [address] [address] [address] Brea Causey Creatinine [Mass/Vol] 1.07 mg/dL Normal 0.70-1.30 [facility] Comment on above: Performed By: #### U CLINT, CMP, LIPID, DBIL, PHOS, MG #### [facility] [address] [address] [address] Brea Causey EGFR-AF SALVADOREAN >60 Normal >=60 [facility] Comment on above: Performed By: #### U CLINT, CMP, LIPID, DBIL, PHOS, MG #### [facility] [address] [address] [address] Brea Causey EGFR-NON AF SALVADOREAN >60 Normal >=60 The [facility] Comment on above: Performed By: #### U CLINT, CMP, LIPID, DBIL, PHOS, MG #### [facility] [address] [address] [address] Brea Causey Globulin (S) [Mass/Vol] 3.5 g/dL Normal The [facility] Comment on above: Performed By: #### U CLINT, CMP, LIPID, DBIL, PHOS, MG #### [facility] [address] [address] [address] Brea Causey Glucose [Mass/Vol] 179 mg/dL Critically high 74-106 [facility] Comment on above: Performed By: #### U CLINT, CMP, LIPID, DBIL, PHOS, MG #### [facility] [address] [place] [address] Dr. Brea Causey Potassium [Moles/Vol] 5.1 mmol/L Normal 3.5-5.1 [facility] Comment on above: Performed By: #### U CLINT, CMP, LIPID, DBIL, PHOS, MG #### [facility] [address] [place] [address] Dr. Brea Causey Protein [Mass/Vol] 7.3 g/dL Normal 6.4-8.2 [facility] Comment on above: Performed By: #### U CLINT, CMP, LIPID, DBIL, PHOS, MG #### [facility] [address] [place] [address] Dr. Brea Causey Sodium [Moles/Vol] 131 mmol/L Critically low 136-145 [facility] Comment on above: Performed By: #### U CLINT, CMP, LIPID, DBIL, PHOS, MG #### [facility] [address] [place] [address] Dr. Brea Causey Urea nitrogen [Mass/Vol] 10.0 mg/dL Normal 7.0-18.0 [facility] Comment on above: Performed By: #### U CLINT, CMP, LIPID, DBIL, PHOS, MG #### [facility] [address] [place] [address] Dr. Brea Causey Urea nitrogen/Creatinine [Mass ratio] 9.3 mg/mg Normal [facility] Comment on above: Performed By: #### U CLINT, CMP, LIPID, DBIL, PHOS, MG #### [facility] [address] [place] [address] Dr. Brea Causey URIC ACID SERUMon 08-30-2022 Urate [Mass/Vol] 6.0 mg/dL Normal 3.5-7.2 [facility] Comment on above: Performed By: #### U CLINT, CMP, LIPID, DBIL, PHOS, MG #### [facility] [address] [place] [address] Dr. Brea Causey FK506 (TACROLIMUS) WHOLE BLO ODon 08-03-2022 Tacrolimus (FK506), Blood 3.2 ng/mL Normal 2.0-20.0 [facility] Comment on above: Result Comment: Trou gh (immediately following transplant) 15.0 . Trough (steady state, 2 weeks or more after transplant): 3.0 - 8.0 . Performed by LC-MS/MS technology. Performed By: #### C BC #### [facility] [address] [place] [address] Dr. Brea Causey BILIRUBIN CONJUGATED (DIRECT )on 08-01-2022 BILI, CONJUGATED 0.1 mg/dL Normal 0.0-0.2 [facility] Comment on above: Performed By: #### U CLINT, CMP, LIPID, DBIL, PHOS, MG #### [facility] [address] [place] [address] Dr. Brea Causey CBC AUTO DIFFon 08-01-2022 BASO # 0.0 103/ul Normal 0.0-0.1 [facility] Comment on above: Performed By: #### C BC #### [facility] [address] [place] [address] Dr. Brea Causey Basophils/100 WBC (Bld) 0.7 % Normal 0.2-2.0 [facility] Comment on above: Performed By: #### C BC #### [facility] [address] [place] [address] Dr. Brea Causey EO # 0.1 103/ul Normal 0.0-0.7 The [facility] Comment on above: Performed By: #### C BC #### [facility] [address] [place] [address] Dr. Brea Causey Eosinophils/100 WBC (Bld) 2.4 % Normal 0.9-7.0 The [facility] Comment on above: Performed By: #### C BC #### [facility] [address] [place] [address] Dr. Brea Causey Erythrocyte distribution width (RBC) [Ratio] 13.3 % Normal 11.0-15.0 [facility] Comment on above: Performed By: #### C BC #### [facility] [address] [address] [address] Brea Causey Hematocrit (Bld) [Volume fraction] 36.5 % Critically low 42.0-54.0 [facility] Comment on above: Performed By: #### C BC #### [facility] [address] [place] [address] Dr. Brea Causey Hemoglobin (Bld) [Mass/Vol] 12.1 g/dL Critically low 14.0-18.0 [facility] Comment on above: Performed By: #### C BC #### [facility] [address] [place] [address] Dr. Brea Causey IG # 0.07 10e3/ul Critically high 0.00-0.03 [facility] Comment on above: Performed By: #### C BC #### [facility] [address] [place] [address] Dr. Brea Causey IG % 1.2 % Critically high 0.0-0.5 [facility] Comment on above: Performed By: #### C BC #### [facility] [address] [place] [address] Dr. Brea Causey LYMPH # 0.9 103/ul Critically low 1.2-3.8 [facility] Comment on above: Performed By: #### C BC #### [facility] [address] [place] [address] Dr. Brea Causey Lymphocytes/100 WBC (Bld) 14.5 % Critically low 20.5-60.0 [facility] Comment on above: Performed By: #### C BC #### [facility] [address] [place] [address] Dr. Brea Causey MANUAL DIFF REQ NO Normal The [facility] Comment on above: Performed By: #### C BC #### [facility] [address] [place] [address] Dr. Brea Causey MCH (RBC) [Entitic mass] 28.8 pg Normal 25.9-34.0 [facility] Comment on above: Performed By: #### C BC #### [facility] [address] [address] [address] Brea Causey MCHC (RBC) [Mass/Vol] 33.2 g/dL Normal 29.9-35.2 [facility] Comment on above: Performed By: #### C BC #### [facility] [address] [address] [address] Brea Causey MCV (RBC) [Entitic vol] 86.9 fL Normal 80.0-94.0 [facility] Comment on above: Performed By: #### C BC #### [facility] [address] [address] [address] Brea Causey MONO # 0.6 103/ul Normal 0.3-0.8 [facility] Comment on above: Performed By: #### C BC #### [facility] [address] [place] [address] Dr. Brea Causey Monocytes/100 WBC (Bld) 10.3 % Normal 1.7-12.0 [facility] Comment on above: Performed By: #### C BC #### [facility] [address] [address] [address] Brea Causey NEUT # 4.2 103/ul Normal 1.4-6.5 [facility] Comment on above: Performed By: #### C BC #### [facility] [address] [address] [address] Brea Causey Neutrophils/100 WBC (Bld) 70.9 % Normal 43.0-75.0 The [facility] Comment on above: Performed By: #### C BC #### [facility] [address] [address] [address] Brea Causey Platelet mean volume (Bld) [Entitic vol] 9.1 fL Critically low 9.5-13.5 [facility] Comment on above: Performed By: #### C BC #### [facility] [address] [address] [address] Brea Causey PLT 248 103/ul Normal 150-450 The [facility] Comment on above: Performed By: #### C BC #### [facility] [address] [address] [address] Brea Causey RBC 4.20 106/ul Critically low 4.70-6.10 [facility] Comment on above: Performed By: #### C BC #### [facility] [address] [id number] Brea Causey WBC 5.9 103/ul Normal 4.0-11.0 [facility] Comment on above: Performed By: #### C BC #### [facility] [address] [address] [address] Brea Causey LIPID PROFILEon 08-01-2022 CHOL-HDL RATIO NORM SEE BELOW Normal [facility] Comment on above: Result Comment: 3.3 - 4.4 LOW RISK 4.4 - 7.1 AVERAGE RISK 7.1 - 11.0 MODERATE RISK >11.0 HIGH RISK Performed By: #### U CLINT, CMP, LIPID, DBIL, PHOS, MG #### [facility] [address] [address] [address] Brea Causey Cholesterol [Mass/Vol] 95 mg/dL Normal <=200 [facility] Comment on above: Performed By: #### U CLINT, CMP, LIPID, DBIL, PHOS, MG #### [facility] [address] [address] [address] Brea Causey Cholesterol in HDL [Mass/Vol] 49 mg/dL Normal 40-60 [facility] Comment on above: Performed By: #### U CLINT, CMP, LIPID, DBIL, PHOS, MG #### [facility] [address] [address] [address] Brea Causey Cholesterol in LDL [Mass/Vol] 35.4 mg/dL Normal [facility] Comment on above: Performed By: #### U CILNT, CMP, LIPID, DBIL, PHOS, MG #### [facility] [address] [address] [address] Brea Causey Cholesterol.total/Cho lesterol in HDL [Mass ratio] 1.9 {ratio} Normal [facility] Comment on above: Performed By: #### U CLITN, CMP, LIPID, DBIL, PHOS, MG #### [facility] [address] [address] [address] Brea Causey HDL NORMAL > or = 60 mg/dl - LO W CARDIOVASCULAR RISK <40 mg/dl - HIGH CARDIOVASCULAR RISK Normal [facility] Comment on above: Performed By: #### U CLINT, CMP, LIPID, DBIL, PHOS, MG #### [facility] [address] [address] [address] Brea Causey LDL CALC NORMAL SEE BELOW Normal [facility] Comment on above: Result Comment: <100 mg/dl OPTIMAL 100 - 129 mg/dl NEAR OR ABOVE OPTIMAL 130 - 159 mg/dl BORDERLINE HIGH 160 - 189 mg/dl HIGH >190 mg/dl VERY HIGH Performed By: #### U CLINT, CMP, LIPID, DBIL, PHOS, MG #### [facility] [address] [address] [address] Brea Causey Triglyceride [Mass/Vol] 53 mg/dL Normal <=150 The [facility] Comment on above: Performed By: #### U CLINT, CMP, LIPID, DBIL, PHOS, MG #### [facility] [address] [address] [address] Brea Causey VLDL CALC 10.6 mg/dL Normal The [facility] Comment on above: Performed By: #### U CLINT, CMP, LIPID, DBIL, PHOS, MG #### [facility] [address] [address] [address] Brea Causey MAGNESIUMon 08-01-2022 Magnesium [Mass/Vol] 1.5 mg/dL Critically low 1.8-2.4 The [facility] Comment on above: Performed By: #### U CLINT, CMP, LIPID, DBIL, PHOS, MG #### [facility] [address] [address] [address] Brea Causey PHOSPHORUSon 08-01-2022 Phosphate [Mass/Vol] 3.8 mg/dL Normal 2.6-4.7 The [facility] Comment on above: Performed By: #### U CLINT, CMP, LIPID, DBIL, PHOS, MG #### [facility] [address] [place] [address] Dr. Brea Causey PROF 14(COMP METB)on 023 Albumin [Mass/Vol] 4.1 g/dL Normal 3.4-5.0 [facility] Comment on above: Performed By: #### U CLINT, CMP, LIPID, DBIL, PHOS, MG #### [facility] [address] [place] [address] Dr. Brea Causey Albumin/Globulin [Mass ratio] 1.3 {ratio} Normal [facility] Comment on above: Performed By: #### U CLINT, CMP, LIPID, DBIL, PHOS, MG #### [facility] Laboratory [address] [place] [address] Dr. Brea Causey ALP [Catalytic activity/Vol] 197 U/L Critically high 46-116 [facility] Comment on above: Performed By: #### U CLINT, CMP, LIPID, DBIL, PHOS, MG #### [facility] Laboratory [address] [place] [address] Dr. Brea Causey ALT [Catalytic activity/Vol] 26 U/L Normal 16-63 [facility] Comment on above: Performed By: #### U CLINT, CMP, LIPID, DBIL, PHOS, MG #### [facility] Laboratory [address] [place] [address] Dr. Brea Causey Anion gap [Moles/Vol] 12.6 mmol/L Normal [facility] Comment on above: Performed By: #### U CLINT, CMP, LIPID, DBIL, PHOS, MG #### [facility] Laboratory [address] [place] [address] Dr. Brea Causey AST [Catalytic activity/Vol] 20 U/L Normal 15-37 [facility] Comment on above: Performed By: #### U CLINT, CMP, LIPID, DBIL, PHOS, MG #### [facility] Laboratory [address] [place] [address] Dr. Brea Causey Bilirubin [Mass/Vol] 0.4 mg/dL Normal 0.2-1.0 [facility] Comment on above: Performed By: #### U CLINT, CMP, LIPID, DBIL, PHOS, MG #### [facility] Laboratory [address] [address] [address] Brea Causey Calcium [Mass/Vol] 7.9 mg/dL Critically low 8.5-10.1 Th e [facility] Comment on above: Performed By: #### U CLINT, CMP, LIPID, DBIL, PHOS, MG #### [facility] Laboratory [address] [address] [address] Brea Causey Chloride [Moles/Vol] 97 mmol/L Critically low 98-107 [facility] Comment on above: Performed By: #### U CLINT, CMP, LIPID, DBIL, PHOS, MG #### [facility] Laboratory [address] [place] [address] Dr. Brea Causey CO2 [Moles/Vol] 28.9 mmol/L Normal 21.0-32.0 [facility] Comment on above: Performed By: #### U CLINT, CMP, LIPID, DBIL, PHOS, MG #### [facility] Laboratory [address] [place] [address] Dr. Brea Causey Creatinine [Mass/Vol] 0.98 mg/dL Normal 0.70-1.30 The [facility] Comment on above: Performed By: #### U CLINT, CMP, LIPID, DBIL, PHOS, MG #### [facility] Laboratory [address] [place] [address] Dr. Brea Causey EGFR-AF SALVADOREAN >60 Normal >=60 [facility] Comment on above: Performed By: #### U CLINT, CMP, LIPID, DBIL, PHOS, MG #### [facility] Laboratory [address] [place] [address] Dr. Brea Causey EGFR-NON AF SALVADOREAN >60 Normal >=60 [facility] Comment on above: Performed By: #### U CLINT, CMP, LIPID, DBIL, PHOS, MG #### [facility] Laboratory [address] [place] [address] Dr. Brea Causey Globulin (S) [Mass/Vol] 3.2 g/dL Normal The [facility] Comment on above: Performed By: #### U CLINT, CMP, LIPID, DBIL, PHOS, MG #### [facility] Laboratory [address] [address] [address] Brea Causey Glucose [Mass/Vol] 174 mg/dL Critically high 74-106 [facility] Comment on above: Performed By: #### U CLINT, CMP, LIPID, DBIL, PHOS, MG #### [facility] Laboratory [address] [address] [address] Brea Causey Potassium [Moles/Vol] 4.5 mmol/L Normal 3.5-5.1 [facility] Comment on above: Performed By: #### U CLINT, CMP, LIPID, DBIL, PHOS, MG #### [facility] Laboratory [address] [address] [address] Brea Causey Protein [Mass/Vol] 7.3 g/dL Normal 6.4-8.2 [facility] Comment on above: Performed By: #### U CLINT, CMP, LIPID, DBIL, PHOS, MG #### [facility] Laboratory [address] [address] [address] Brea Causey Sodium [Moles/Vol] 134 mmol/L Critically low 136-145 [facility] Comment on above: Performed By: #### U CLINT, CMP, LIPID, DBIL, PHOS, MG #### [facility] Laboratory [address] [place] [address] Dr. Brea Causey Urea nitrogen [Mass/Vol] 8.0 mg/dL Normal 7.0-18.0 [facility] Comment on above: Performed By: #### U CLINT, CMP, LIPID, DBIL, PHOS, MG #### [facility] Laboratory [address] [address] [address] Brea Causey Urea nitrogen/Creatinine [Mass ratio] 8.2 mg/mg Normal [facility] Comment on above: Performed By: #### U CLINT, CMP, LIPID, DBIL, PHOS, MG #### [facility] Laboratory [address] [address] [address] Brea Causey URIC ACID SERUMon 08-01-2022 Urate [Mass/Vol] 5.8 mg/dL Normal 3.5-7.2 [facility] Comment on above: Performed By: #### U CLINT, CMP, LIPID, DBIL, PHOS, MG #### [facility] Laboratory [address] [place] [address] Dr. Brea Causey FK506 (TACROLIMUS) WHOLE BLO ODon 07-07-2022 Tacrolimus (FK506), Blood 3.6 ng/mL Normal 2.0-20.0 The [facility] Comment on above: Result Comment: Trou gh (immediately following transplant) 15.0 . Trough (steady state, 2 weeks or more after transplant): 3.0 - 8.0 . Performed by LC-MS/MS technology. Performed By: #### C BC #### [facility] Laboratory [address] [place] [address] Dr. Brea Causey BILIRUBIN CONJUGATED (DIRECT )on 07-04-2022 BILI, CONJUGATED 0.1 mg/dL Normal 0.0-0.2 [facility] Comment on above: Performed By: #### B KVIRUS #### [facility] Laboratory [address] [place] [address] Dr. Brea Causey CBC AUTO DIFFon 07-04-2022 BASO # 0.0 103/ul Normal 0.0-0.1 The [facility] Comment on above: Performed By: #### U CLINT, CMP, LIPID, DBIL, PHOS, MG #### [facility] Laboratory [address] [place] [address] Dr. Brea Causey Basophils/100 WBC (Bld) 0.5 % Normal 0.2-2.0 The [facility] Comment on above: Performed By: #### U CLINT, CMP, LIPID, DBIL, PHOS, MG #### [facility] Laboratory [address] [place] [address] Dr. Brea Causey EO # 0.2 103/ul Normal 0.0-0.7 The [facility] Comment on above: Performed By: #### U CLINT, CMP, LIPID, DBIL, PHOS, MG #### [facility] Laboratory [address] [place] [address] Dr. Brea Causey Eosinophils/100 WBC (Bld) 2.6 % Normal 0.9-7.0 [facility] Comment on above: Performed By: #### U CLINT, CMP, LIPID, DBIL, PHOS, MG #### [facility] Laboratory [address] [place] [address] Dr. Brea Causey Erythrocyte distribution width (RBC) [Ratio] 13.3 % Normal 11.0-15.0 [facility] Comment on above: Performed By: #### U CLINT, CMP, LIPID, DBIL, PHOS, MG #### [facility] Laboratory [address] [place] [address] Dr. Brea Causey Hematocrit (Bld) [Volume fraction] 37.2 % Critically low 42.0-54.0 [facility] Comment on above: Performed By: #### U CLITN, CMP, LIPID, DBIL, PHOS, MG #### [facility] Laboratory [address] [place] [address] Dr. Brea Causey Hemoglobin (Bld) [Mass/Vol] 12.4 g/dL Critically low 14.0-18.0 [facility] Comment on above: Performed By: #### U CLINT, CMP, LIPID, DBIL, PHOS, MG #### [facility] Laboratory [address] [place] [address] Dr. Brea Causey IG # 0.09 10e3/ul Critically high 0.00-0.03 [facility] Comment on above: Performed By: #### U CLINT, CMP, LIPID, DBIL, PHOS, MG #### [facility] Laboratory [address] [place] [address] Dr. Brea Causey IG % 1.4 % Critically high 0.0-0.5 The [facility] Comment on above: Performed By: #### U CLINT, CMP, LIPID, DBIL, PHOS, MG #### [facility] Laboratory [address] [place] [address] Dr. Brea Causey LYMPH # 1.0 103/ul Critically low 1.2-3.8 The [facility] Comment on above: Performed By: #### U CLINT, CMP, LIPID, DBIL, PHOS, MG #### [facility] Laboratory [address] [place] [address] Dr. Brea Causey Lymphocytes/100 WBC (Bld) 15.2 % Critically low 20.5-60.0 The [facility] Comment on above: Performed By: #### U CLINT, CMP, LIPID, DBIL, PHOS, MG #### [facility] Laboratory [address] [place] [address] Dr. Brea Causey MANUAL DIFF REQ NO Normal The [facility] Comment on above: Performed By: #### U CLINT, CMP, LIPID, DBIL, PHOS, MG #### [facility] Laboratory [address] [place] [address] Dr. Brea Causey MCH (RBC) [Entitic mass] 28.8 pg Normal 25.9-34.0 [facility] Comment on above: Performed By: #### U CLINT, CMP, LIPID, DBIL, PHOS, MG #### [facility] Laboratory [address] [place] [address] Dr. Brea Causey MCHC (RBC) [Mass/Vol] 33.3 g/dL Normal 29.9-35.2 The [facility] Comment on above: Performed By: #### U CLINT, CMP, LIPID, DBIL, PHOS, MG #### [facility] Laboratory [address] [place] [address] Dr. Brea Causey MCV (RBC) [Entitic vol] 86.5 fL Normal 80.0-94.0 The [facility] Comment on above: Performed By: #### U CLINT, CMP, LIPID, DBIL, PHOS, MG #### [facility] Laboratory [address] [place] [address] Dr. Brea Causey MONO # 0.7 103/ul Normal 0.3-0.8 The [facility] Comment on above: Performed By: #### U CLINT, CMP, LIPID, DBIL, PHOS, MG #### [facility] Laboratory [address] [place] [address] Dr. Brea Causey Monocytes/100 WBC (Bld) 10.0 % Normal 1.7-12.0 The [facility] Comment on above: Performed By: #### U CLINT, CMP, LIPID, DBIL, PHOS, MG #### [facility] Laboratory [address] [address] [address] Brea Causey NEUT # 4.6 103/ul Normal 1.4-6.5 [facility] Comment on above: Performed By: #### U CLINT, CMP, LIPID, DBIL, PHOS, MG #### [facility] Laboratory [address] [address] [address] Brea Causey Neutrophils/100 WBC (Bld) 70.3 % Normal 43.0-75.0 [facility] Comment on above: Performed By: #### U CLINT, CMP, LIPID, DBIL, PHOS, MG #### [facility] Laboratory [address] [address] [address] Brea Causey Platelet mean volume (Bld) [Entitic vol] 8.8 fL Critically low 9.5-13.5 [facility] Comment on above: Performed By: #### U CLINT, CMP, LIPID, DBIL, PHOS, MG #### [facility] Laboratory [address] [address] [address] Brea Causey PLT 240 103/ul Normal 150-450 [facility] Comment on above: Performed By: #### U CLINT, CMP, LIPID, DBIL, PHOS, MG #### [facility] Laboratory [address] [address] [address] Brea Causey RBC 4.30 106/ul Critically low 4.70-6.10 [facility] Comment on above: Performed By: #### U CLINT, CMP, LIPID, DBIL, PHOS, MG #### [facility] Laboratory [address] [address] [address] Brea Causey WBC 6.5 103/ul Normal 4.0-11.0 [facility] Comment on above: Performed By: #### U CLINT, CMP, LIPID, DBIL, PHOS, MG #### [facility] Laboratory [address] [address] [address] Brea Causey LIPID PROFILEon 07-04-2022 CHOL-HDL RATIO NORM SEE BELOW Normal [facility] Comment on above: Result Comment: 3.3 - 4.4 LOW RISK 4.4 - 7.1 AVERAGE RISK 7.1 - 11.0 MODERATE RISK >11.0 HIGH RISK Performed By: #### U CLINT, CMP, LIPID, DBIL, PHOS, MG #### [facility] Laboratory [address] [place] [address] Dr. Brea Causey Cholesterol [Mass/Vol] 86 mg/dL Normal <=200 [facility] Comment on above: Performed By: #### U CLINT, CMP, LIPID, DBIL, PHOS, MG #### [facility] Laboratory [address] [address] [address] Brea Causey Cholesterol in HDL [Mass/Vol] 44 mg/dL Normal 40-60 [facility] Comment on above: Performed By: #### U CLINT, CMP, LIPID, DBIL, PHOS, MG #### [facility] Laboratory [address] [place] [address] Dr. Brea Causey Cholesterol in LDL [Mass/Vol] 28.0 mg/dL Normal [facility] Comment on above: Performed By: #### U CLINT, CMP, LIPID, DBIL, PHOS, MG #### [facility] Laboratory [address] [place] [address] Dr. Brea Causey Cholesterol.total/Cho lesterol in HDL [Mass ratio] 2.0 {ratio} Normal [facility] Comment on above: Performed By: #### U CLINT, CMP, LIPID, DBIL, PHOS, MG #### [facility] Laboratory [address] [place] [address] Dr. Brea Causey HDL NORMAL > or = 60 mg/dl - LO W CARDIOVASCULAR RISK <40 mg/dl - HIGH CARDIOVASCULAR RISK Normal [facility] Comment on above: Performed By: #### U CLINT, CMP, LIPID, DBIL, PHOS, MG #### [facility] Laboratory [address] [place] [address] Dr. Brea Causey LDL CALC NORMAL SEE BELOW Normal [facility] Comment on above: Result Comment: <100 mg/dl OPTIMAL 100 - 129 mg/dl NEAR OR ABOVE OPTIMAL 130 - 159 mg/dl BORDERLINE HIGH 160 - 189 mg/dl HIGH >190 mg/dl VERY HIGH Performed By: #### U CLINT, CMP, LIPID, DBIL, PHOS, MG #### [facility] Laboratory [address] [address] [address] Brea Causey Triglyceride [Mass/Vol] 70 mg/dL Normal <=150 [facility] Comment on above: Performed By: #### U CLINT, CMP, LIPID, DBIL, PHOS, MG #### [facility] Laboratory [address] [address] [address] Brea Causey VLDL CALC 14.0 mg/dL Normal [facility] Comment on above: Performed By: #### U CLINT, CMP, LIPID, DBIL, PHOS, MG #### [facility] Laboratory [address] [place] [address] Dr. Brea Causey MAGNESIUMon 07-04-2022 Magnesium [Mass/Vol] 1.4 mg/dL Critically low 1.8-2.4 [facility] Comment on above: Performed By: #### U CLINT, CMP, LIPID, DBIL, PHOS, MG #### [facility] Laboratory [address] [place] [address] Dr. Brea Causey PHOSPHORUSon 07-04-2022 Phosphate [Mass/Vol] 4.1 mg/dL Normal 2.6-4.7 [facility] Comment on above: Performed By: #### U CLINT, CMP, LIPID, DBIL, PHOS, MG #### [facility] Laboratory [address] [place] [address] Dr. Brea Causey PROF 14(COMP METB)on 023 Albumin [Mass/Vol] 4.0 g/dL Normal 3.4-5.0 [facility] Comment on above: Performed By: #### B KVIRUS #### [facility] Laboratory [address] [place] [address] Dr. Brea Causey Albumin/Globulin [Mass ratio] 1.3 {ratio} Normal [facility] Comment on above: Performed By: #### B KVIRUS #### [facility] Laboratory [address] [place] [address] Dr. Brea Causey ALP [Catalytic activity/Vol] 212 U/L Critically high 46-116 [facility] Comment on above: Performed By: #### B KVIRUS #### [facility] Laboratory [address] [address] [address] Brea Causey ALT [Catalytic activity/Vol] 31 U/L Normal 16-63 [facility] Comment on above: Performed By: #### B KVIRUS #### [facility] Laboratory [address] [address] [address] Brea Causey Anion gap [Moles/Vol] 11.9 mmol/L Normal [facility] Comment on above: Performed By: #### B KVIRUS #### [facility] Laboratory [address] [address] [address] Brea Causey AST [Catalytic activity/Vol] 21 U/L Normal 15-37 [facility] Comment on above: Performed By: #### B KVIRUS #### [facility] Laboratory [address] [place] [address] Dr. Brea Causey Bilirubin [Mass/Vol] 0.3 mg/dL Normal 0.2-1.0 [facility] Comment on above: Performed By: #### B KVIRUS #### [facility] Laboratory [address] [place] [address] Dr. Brea Causey Calcium [Mass/Vol] 8.1 mg/dL Critically low 8.5-10.1 [facility] Comment on above: Performed By: #### B KVIRUS #### [facility] Laboratory [address] [address] [address] Brea Causey Chloride [Moles/Vol] 97 mmol/L Critically low 98-107 [facility] Comment on above: Performed By: #### B KVIRUS #### [facility] Laboratory [address] [address] [address] Brea Causey CO2 [Moles/Vol] 26.8 mmol/L Normal 21.0-32.0 [facility] Comment on above: Performed By: #### B KVIRUS #### [facility] Laboratory [address] [address] [address] Brea Causey Creatinine [Mass/Vol] 0.99 mg/dL Normal 0.70-1.30 [facility] Comment on above: Performed By: #### B KVIRUS #### [facility] Laboratory [address] [address] [address] Brea Causey EGFR-AF SALVADOREAN >60 Normal >=60 [facility] Comment on above: Performed By: #### B KVIRUS #### [facility] Laboratory [address] [address] [address] Brea Causey EGFR-NON AF SALVADOREAN >60 Normal >=60 [facility] Comment on above: Performed By: #### B KVIRUS #### [facility] Laboratory [address] [address] [address] Brea Causey Globulin (S) [Mass/Vol] 3.2 g/dL Normal [facility] Comment on above: Performed By: #### B KVIRUS #### [facility] Laboratory [address] [place] [address] Dr. Brea Causey Glucose [Mass/Vol] 169 mg/dL Critically high 74-106 [facility] Comment on above: Performed By: #### B KVIRUS #### [facility] Laboratory [address] [place] [address] Dr. Brea Causey Potassium [Moles/Vol] 4.7 mmol/L Normal 3.5-5.1 [facility] Comment on above: Performed By: #### B KVIRUS #### [facility] Laboratory [address] [place] [address] Dr. Brea Causey Protein [Mass/Vol] 7.2 g/dL Normal 6.4-8.2 [facility] Comment on above: Performed By: #### B KVIRUS #### [facility] Laboratory [address] [address] [address] Brea Causey Sodium [Moles/Vol] 131 mmol/L Critically low 136-145 [facility] Comment on above: Performed By: #### B KVIRUS #### [facility] Laboratory [address] [place] [address] Dr. Brea Causey Urea nitrogen [Mass/Vol] 9.0 mg/dL Normal 7.0-18.0 [facility] Comment on above: Performed By: #### B KVIRUS #### [facility] Laboratory [address] [address] [address] Brea Causey Urea nitrogen/Creatinine [Mass ratio] 9.1 mg/mg Normal [facility] Comment on above: Performed By: #### B KVIRUS #### [facility] Laboratory [address] [address] [address] Brea Causey URIC ACID SERUMon 07-04-2022 Urate [Mass/Vol] 6.1 mg/dL Normal 3.5-7.2 [facility] Comment on above: Performed By: #### U CLINT, CMP, LIPID, DBIL, PHOS, MG #### [facility] Laboratory [address] [address] [address] Brea Causey TESTOSTERONE, FREE,DIRECT, T OTALon 05-28-2022 Free Testosterone(Direct) 5.9 pg/mL Critically low 6.6-18.1 [facility] Comment on above: Result Comment: Perf ormed at: BN Performed By: #### U CLINT, CMP, LIPID, DBIL, PHOS, MG #### [facility] Laboratory [address] [address] [address] Brea Causey Testosterone [Mass/Vol] 513 ng/dL Normal 264-916 [facility] Comment on above: Result Comment: Adul t male reference interval is based on a population of healthy nonobese males (BMI <30) between 19 and 39 years old. Steven, et.al. JCEM 2017,102;2723-6955. PMID: [id number]. Performed at: CB Performed By: #### U CLINT, CMP, LIPID, DBIL, PHOS, MG #### [facility] Laboratory [address] [address] [address] Brea Causey FK506 (TACROLIMUS) WHOLE BLO ODon 05-26-2022 Tacrolimus (FK506), Blood 3.9 ng/mL Normal 2.0-20.0 [facility] Comment on above: Result Comment: Trou gh (immediately following transplant) 15.0 . Trough (steady state, 2 weeks or more after transplant): 3.0 - 8.0 . Performed by LC-MS/MS technology. Performed By: #### B KVIRUS #### [facility] Laboratory [address] [place] [address] Dr. Brea Causey BK VIRUS PCR QUANTon 023 BKV DNA QUANT PCR PLASMA Negative Normal Negative [facility] Comment on above: Result Comment: No B K DNA detected. . The linear range of the assay is 22 - 100,000,000 IU/mL. Performed By: #### U CLINT, CMP, LIPID, DBIL, PHOS, MG #### [facility] Laboratory [address] [place] [address] Dr. Brea Causey Log10 BKV DNA Plasma Normal [facility] Comment on above: Performed By: #### U CLINT, CMP, LIPID, DBIL, PHOS, MG #### [facility] Laboratory [address] [place] [address] Dr. Brea Causey BILIRUBIN CONJUGATED (DIRECT )on 05-23-2022 BILI, CONJUGATED 0.2 mg/dL Normal 0.0-0.2 [facility] Comment on above: Performed By: #### C BC #### [facility] Laboratory [address] [place] [address] Dr. Brea Causey CBC AUTO DIFFon 05-23-2022 BASO # 0.0 103/ul Normal 0.0-0.1 [facility] Comment on above: Performed By: #### B KVIRUS #### [facility] Laboratory [address] [place] [address] Dr. Brea Causey Basophils/100 WBC (Bld) 0.6 % Normal 0.2-2.0 [facility] Comment on above: Performed By: #### B KVIRUS #### [facility] Laboratory [address] [place] [address] Dr. Brea Causey EO # 0.1 103/ul Normal 0.0-0.7 [facility] Comment on above: Performed By: #### B KVIRUS #### [facility] Laboratory [address] [place] [address] Dr. Brea Causey Eosinophils/100 WBC (Bld) 1.7 % Normal 0.9-7.0 [facility] Comment on above: Performed By: #### B KVIRUS #### [facility] Laboratory [address] [place] [address] Dr. Brea Causey Erythrocyte distribution width (RBC) [Ratio] 13.4 % Normal 11.0-15.0 [facility] Comment on above: Performed By: #### B KVIRUS #### [facility] [address] [place] [address] Dr. Brea Causey Hematocrit (Bld) [Volume fraction] 38.8 % Critically low 42.0-54.0 [facility] Comment on above: Performed By: #### B KVIRUS #### [facility] [address] [place] [address] Dr. Brea Causey Hemoglobin (Bld) [Mass/Vol] 12.4 g/dL Critically low 14.0-18.0 [facility] Comment on above: Performed By: #### B KVIRUS #### [facility] [address] [place] [address] Dr. Brea Causey IG # 0.07 10e3/ul Critically high 0.00-0.03 [facility] Comment on above: Performed By: #### B KVIRUS #### [facility] [address] [place] [address] Dr. Brea Causey IG % 1.1 % Critically high 0.0-0.5 [facility] Comment on above: Performed By: #### B KVIRUS #### [facility] [address] [place] [address] Dr. Brea Causey LYMPH # 0.9 103/ul Critically low 1.2-3.8 [facility] Comment on above: Performed By: #### B KVIRUS #### [facility] [address] [place] [address] Dr. Brea Causey Lymphocytes/100 WBC (Bld) 14.1 % Critically low 20.5-60.0 [facility] Comment on above: Performed By: #### B KVIRUS #### [facility] [address] [place] [address] Dr. Brea Causey MANUAL DIFF REQ NO Normal [facility] Comment on above: Performed By: #### B KVIRUS #### [facility] [address] [place] [address] Dr. Brea Causey MCH (RBC) [Entitic mass] 29.3 pg Normal 25.9-34.0 The [facility] Comment on above: Performed By: #### B KVIRUS #### [facility] [address] [place] [address] Dr. Brea Causey MCHC (RBC) [Mass/Vol] 32.0 g/dL Normal 29.9-35.2 The [facility] Comment on above: Performed By: #### B KVIRUS #### [facility] [address] [place] [address] Dr. Brea Causey MCV (RBC) [Entitic vol] 91.7 fL Normal 80.0-94.0 [facility] Comment on above: Performed By: #### B KVIRUS #### [facility] [address] [place] [address] Dr. Brea Causey MONO # 0.7 103/ul Normal 0.3-0.8 [facility] Comment on above: Performed By: #### B KVIRUS #### [facility] [address] [place] [address] Dr. Brea Causey Monocytes/100 WBC (Bld) 10.0 % Normal 1.7-12.0 [facility] Comment on above: Performed By: #### B KVIRUS #### [facility] [address] [place] [address] Dr. Brea Causey NEUT # 4.7 103/ul Normal 1.4-6.5 The [facility] Comment on above: Performed By: #### B KVIRUS #### [facility] [address] [place] [address] Dr. Brea Causey Neutrophils/100 WBC (Bld) 72.5 % Normal 43.0-75.0 The [facility] Comment on above: Performed By: #### B KVIRUS #### [facility] [address] [place] [address] Dr. Brea Causey Platelet mean volume (Bld) [Entitic vol] 9.4 fL Critically low 9.5-13.5 The [facility] Comment on above: Performed By: #### B KVIRUS #### [facility] [address] [address] [address] Brea Causey PLT 256 103/ul Normal 150-450 [facility] Comment on above: Performed By: #### B KVIRUS #### [facility] [address] [address] [address] Brea Causey RBC 4.23 106/ul Critically low 4.70-6.10 [facility] Comment on above: Performed By: #### B KVIRUS #### [facility] [address] [address] [address] Brea Causey WBC 6.5 103/ul Normal 4.0-11.0 [facility] Comment on above: Performed By: #### B KVIRUS #### [facility] [address] [place] [address] Dr. Brea Causey GLYCOHEMOGLOBIN A1Con 2022 ADA RECOMMENDATION SEE BELOW Normal [facility] Comment on above: Result Comment: ADA RECOMMENDED LIMIT 4.0 - 6.0 ADA THERAPEUTIC TARGET < 7.0 ACTION SUGGESTED > 7.0 Performed By: #### U CLINT, CMP, LIPID, DBIL, PHOS, MG #### [facility] [address] [place] [address] Dr. Brea Causey Glucose [Mass/Vol] 160 mg/dL Normal [facility] Comment on above: Performed By: #### U CLINT, CMP, LIPID, DBIL, PHOS, MG #### [facility] [address] [address] [address] Brea Causey HbA1c (Bld) [Mass fraction] 7.2 % Critically high 4.5-6.2 [facility] Comment on above: Performed By: #### U CLINT, CMP, LIPID, DBIL, PHOS, MG #### [facility] [address] [place] [address] Dr. Brea Causey LIPID PROFILEon 05-23-2022 CHOL-HDL RATIO NORM SEE BELOW Normal [facility] Comment on above: Result Comment: 3.3 - 4.4 LOW RISK 4.4 - 7.1 AVERAGE RISK 7.1 - 11.0 MODERATE RISK >11.0 HIGH RISK Performed By: #### C BC #### [facility] [address] [address] [address] Brea Causey Cholesterol [Mass/Vol] 87 mg/dL Normal <=200 [facility] Comment on above: Performed By: #### C BC #### [facility] [address] [address] [address] Brea Causey Cholesterol in HDL [Mass/Vol] 54 mg/dL Normal 40-60 [facility] Comment on above: Performed By: #### C BC #### [facility] [address] [address] [address] Brea Causey Cholesterol in LDL [Mass/Vol] 24.6 mg/dL Normal [facility] Comment on above: Performed By: #### C BC #### [facility] [address] [place] [address] Dr. Brea Causey Cholesterol.total/Cho lesterol in HDL [Mass ratio] 1.6 {ratio} Normal [facility] Comment on above: Performed By: #### C BC #### [facility] [address] [address] [address] Brea Causey HDL NORMAL > or = 60 mg/dl - LO W CARDIOVASCULAR RISK <40 mg/dl - HIGH CARDIOVASCULAR RISK Normal [facility] Comment on above: Performed By: #### C BC #### [facility] [address] [address] [address] Brea Causey LDL CALC NORMAL SEE BELOW Normal [facility] Comment on above: Result Comment: <100 mg/dl OPTIMAL 100 - 129 mg/dl NEAR OR ABOVE OPTIMAL 130 - 159 mg/dl BORDERLINE HIGH 160 - 189 mg/dl HIGH >190 mg/dl VERY HIGH Performed By: #### C BC #### [facility] [address] [address] [address] Brea Causey Triglyceride [Mass/Vol] 42 mg/dL Normal <=150 [facility] Comment on above: Performed By: #### C BC #### [facility] [address] [address] [address] Brea Causey VLDL CALC 8.4 mg/dL Normal [facility] Comment on above: Performed By: #### C BC #### [facility] [address] [place] [address] Dr. Brea Causey MAGNESIUMon 05-23-2022 Magnesium [Mass/Vol] 1.4 mg/dL Critically low 1.8-2.4 [facility] Comment on above: Performed By: #### C BC #### [facility] [address] [place] [address] Dr. Brea Causey PHOSPHORUSon 05-23-2022 Phosphate [Mass/Vol] 3.6 mg/dL Normal 2.6-4.7 [facility] Comment on above: Performed By: #### C BC #### [facility] [address] [place] [address] Dr. Brea Causey PROF 14(COMP METB)on 023 Albumin [Mass/Vol] 3.9 g/dL Normal 3.4-5.0 [facility] Comment on above: Performed By: #### C BC #### [facility] [address] [place] [address] Dr. Brea Causey Albumin/Globulin [Mass ratio] 1.2 {ratio} Normal [facility] Comment on above: Performed By: #### C BC #### [facility] [address] [place] [address] Dr. Brea Causey ALP [Catalytic activity/Vol] 190 U/L Critically high 46-116 [facility] Comment on above: Performed By: #### C BC #### [facility] [address] [place] [address] Dr. Brea Causey ALT [Catalytic activity/Vol] 26 U/L Normal 16-63 [facility] Comment on above: Performed By: #### C BC #### [facility] [address] [place] [address] Dr. Brea Causey Anion gap [Moles/Vol] 13.1 mmol/L Normal [facility] Comment on above: Performed By: #### C BC #### [facility] [address] [place] [address] Dr. Brea Causey AST [Catalytic activity/Vol] 18 U/L Normal 15-37 The [facility] Comment on above: Performed By: #### C BC #### [facility] [address] [address] [address] Brea Causey Bilirubin [Mass/Vol] 0.4 mg/dL Normal 0.2-1.0 [facility] Comment on above: Performed By: #### C BC #### [facility] [address] [address] [address] Brea Causey Calcium [Mass/Vol] 7.8 mg/dL Critically low 8.5-10.1 Th e [facility] Comment on above: Performed By: #### C BC #### [facility] [address] [place] [address] Dr. Brea Causey Chloride [Moles/Vol] 95 mmol/L Critically low 98-107 [facility] Comment on above: Performed By: #### C BC #### [facility] [address] [place] [address] Dr. Brea Causey CO2 [Moles/Vol] 28.8 mmol/L Normal 21.0-32.0 [facility] Comment on above: Performed By: #### C BC #### [facility] [address] [place] [address] Dr. rBea Causey Creatinine [Mass/Vol] 1.03 mg/dL Normal 0.70-1.30 [facility] Comment on above: Performed By: #### C BC #### [facility] [address] [place] [address] Dr. Brea Causey EGFR-AF SALVADOREAN >60 Normal >=60 [facility] Comment on above: Performed By: #### C BC #### [facility] [address] [place] [address] Dr. Brea Causey EGFR-NON AF SALVADOREAN >60 Normal >=60 [facility] Comment on above: Performed By: #### C BC #### [facility] [address] [place] [address] Dr. Brea Causey Globulin (S) [Mass/Vol] 3.2 g/dL Normal The [facility] Comment on above: Performed By: #### C BC #### [facility] [address] [address] [address] Brea Causey Glucose [Mass/Vol] 155 mg/dL Critically high 74-106 [facility] Comment on above: Performed By: #### C BC #### [facility] [address] [address] [address] Brea Causey Potassium [Moles/Vol] 4.9 mmol/L Normal 3.5-5.1 [facility] Comment on above: Performed By: #### C BC #### [facility] [address] [address] [address] Brea Causey Protein [Mass/Vol] 7.1 g/dL Normal 6.4-8.2 [facility] Comment on above: Performed By: #### C BC #### [facility] [address] [address] [address] Brea Causey Sodium [Moles/Vol] 132 mmol/L Critically low 136-145 [facility] Comment on above: Performed By: #### C BC #### [facility] [address] [address] [address] Brea Causey Urea nitrogen [Mass/Vol] 8.0 mg/dL Normal 7.0-18.0 [facility] Comment on above: Performed By: #### C BC #### [facility] [address] [address] [address] Brea Causey Urea nitrogen/Creatinine [Mass ratio] 7.8 mg/mg Normal [facility] Comment on above: Performed By: #### C BC #### [facility] [address] [address] [address] Brea Causey URIC ACID SERUMon 05-23-2022 Urate [Mass/Vol] 5.6 mg/dL Normal 3.5-7.2 [facility] Comment on above: Performed By: #### C BC #### [facility] [address] [address] [address] Brea Causey TESTOSTERONE, FREE,DIRECT, T Nav[place]et 05-03-2022 Free Testosterone(Direct) 7.4 pg/mL Normal 6.6-18.1 [facility] Comment on above: Result Comment: Perf ormed at: BN Performed By: #### U CLINT, CMP, LIPID, DBIL, PHOS, MG #### [facility] [address] [address] [address] Brea Causey Testosterone [Mass/Vol] 494 ng/dL Normal 264-916 The [facility] Comment on above: Result Comment: Adul t male reference interval is based on a population of healthy nonobese males (BMI <30) between 19 and 39 years old. Steven, et.al. JCEM 2017,102;5549-4983. PMID: [id number]. Performed at: CB Performed By: #### U CLINT, CMP, LIPID, DBIL, PHOS, MG #### [facility] [address] [place] [address] Dr. Brea Causey FK506 (TACROLIMUS) WHOLE BLO ODon 05-02-2022 Tacrolimus (FK506), Blood 4.3 ng/mL Normal 2.0-20.0 [facility] Comment on above: Result Comment: Trou gh (immediately following transplant) 15.0 . Trough (steady state, 2 weeks or more after transplant): 3.0 - 8.0 . Performed by LC-MS/MS technology. Performed By: #### C BC #### [facility] [address] [address] [address] Brea Causey BILIRUBIN CONJUGATED (DIRECT )on 04-30-2022 BILI, CONJUGATED 0.1 mg/dL Normal 0.0-0.2 [facility] Comment on above: Performed By: #### U CLINT, CMP, LIPID, DBIL, PHOS, MG #### [facility] [address] [address] [address] Brea Causey CBC AUTO DIFFon 04-30-2022 BASO # 0.0 103/ul Normal 0.0-0.1 [facility] Comment on above: Performed By: #### U CLINT, CMP, LIPID, DBIL, PHOS, MG #### [facility] [address] [address] [address] Brea Causey Basophils/100 WBC (Bld) 0.5 % Normal 0.2-2.0 The [facility] Comment on above: Performed By: #### U CLINT, CMP, LIPID, DBIL, PHOS, MG #### [facility] [address] [place] [address] Dr. Brea Causey EO # 0.1 103/ul Normal 0.0-0.7 The [facility] Comment on above: Performed By: #### U CLINT, CMP, LIPID, DBIL, PHOS, MG #### [facility] [address] [address] [address] Brea Causey Eosinophils/100 WBC (Bld) 2.1 % Normal 0.9-7.0 The [facility] Comment on above: Performed By: #### U CLINT, CMP, LIPID, DBIL, PHOS, MG #### [facility] [address] [place] [address] Dr. Brea Causey Erythrocyte distribution width (RBC) [Ratio] 13.2 % Normal 11.0-15.0 [facility] Comment on above: Performed By: #### U CLINT, CMP, LIPID, DBIL, PHOS, MG #### [facility] [address] [place] [address] Dr. Brea Causey Hematocrit (Bld) [Volume fraction] 37.0 % Critically low 42.0-54.0 [facility] Comment on above: Performed By: #### U CLINT, CMP, LIPID, DBIL, PHOS, MG #### [facility] [address] [place] [address] Dr. Brea Causey Hemoglobin (Bld) [Mass/Vol] 12.4 g/dL Critically low 14.0-18.0 [facility] Comment on above: Performed By: #### U CLINT, CMP, LIPID, DBIL, PHOS, MG #### [facility] [address] [place] [address] Dr. Brea Causey IG # 0.05 10e3/ul Critically high 0.00-0.03 [facility] Comment on above: Performed By: #### U CLINT, CMP, LIPID, DBIL, PHOS, MG #### [facility] [address] [place] [address] Dr. Brea Causey IG % 0.9 % Critically high 0.0-0.5 [facility] Comment on above: Performed By: #### U CLINT, CMP, LIPID, DBIL, PHOS, MG #### [facility] [address] [place] [address] Dr. Brea Causey LYMPH # 1.0 103/ul Critically low 1.2-3.8 The [facility] Comment on above: Performed By: #### U CLINT, CMP, LIPID, DBIL, PHOS, MG #### [facility] [address] [place] [address] Dr. Brea Causey Lymphocytes/100 WBC (Bld) 16.4 % Critically low 20.5-60.0 [facility] Comment on above: Performed By: #### U CLINT, CMP, LIPID, DBIL, PHOS, MG #### [facility] [address] [place] [address] Dr. Brea Causey MANUAL DIFF REQ NO Normal [facility] Comment on above: Performed By: #### U CLINT, CMP, LIPID, DBIL, PHOS, MG #### [facility] [address] [place] [address] Dr. Brea Causey MCH (RBC) [Entitic mass] 29.0 pg Normal 25.9-34.0 [facility] Comment on above: Performed By: #### U CLINT, CMP, LIPID, DBIL, PHOS, MG #### [facility] [address] [place] [address] Dr. Brea Causey MCHC (RBC) [Mass/Vol] 33.5 g/dL Normal 29.9-35.2 [facility] Comment on above: Performed By: #### U CLINT, CMP, LIPID, DBIL, PHOS, MG #### [facility] [address] [place] [address] Dr. Brea Causey MCV (RBC) [Entitic vol] 86.7 fL Normal 80.0-94.0 [facility] Comment on above: Performed By: #### U CLINT, CMP, LIPID, DBIL, PHOS, MG #### [facility] [address] [address] [address] Brea Causey MONO # 0.7 103/ul Normal 0.3-0.8 [facility] Comment on above: Performed By: #### U CLINT, CMP, LIPID, DBIL, PHOS, MG #### [facility] [address] [place] [address] Dr. Brea Causey Monocytes/100 WBC (Bld) 11.6 % Normal 1.7-12.0 [facility] Comment on above: Performed By: #### U CLINT, CMP, LIPID, DBIL, PHOS, MG #### [facility] [address] [place] [address] Dr. Brea Causey NEUT # 4.0 103/ul Normal 1.4-6.5 [facility] Comment on above: Performed By: #### U CLINT, CMP, LIPID, DBIL, PHOS, MG #### [facility] [address] [place] [address] Dr. Brea Casuey Neutrophils/100 WBC (Bld) 68.5 % Normal 43.0-75.0 [facility] Comment on above: Performed By: #### U CLINT, CMP, LIPID, DBIL, PHOS, MG #### [facility] [address] [place] [address] Dr. Brea Causey Platelet mean volume (Bld) [Entitic vol] 9.2 fL Critically low 9.5-13.5 The [facility] Comment on above: Performed By: #### U CLINT, CMP, LIPID, DBIL, PHOS, MG #### [facility] [address] [place] [address] Dr. Brea Causey PLT 231 103/ul Normal 150-450 The [facility] Comment on above: Performed By: #### U CLINT, CMP, LIPID, DBIL, PHOS, MG #### [facility] [address] [place] [address] Dr. Brea Causey RBC 4.27 106/ul Critically low 4.70-6.10 [facility] Comment on above: Performed By: #### U CLINT, CMP, LIPID, DBIL, PHOS, MG #### [facility] [address] [address] [address] Brea Causey WBC 5.9 103/ul Normal 4.0-11.0 [facility] Comment on above: Performed By: #### U CLINT, CMP, LIPID, DBIL, PHOS, MG #### [facility] [address] [place] [address] Dr. Brea Causey LIPID PROFILEon 04-30-2022 CHOL-HDL RATIO NORM SEE BELOW Normal [facility] Comment on above: Result Comment: 3.3 - 4.4 LOW RISK 4.4 - 7.1 AVERAGE RISK 7.1 - 11.0 MODERATE RISK >11.0 HIGH RISK Performed By: #### U CLINT, CMP, LIPID, DBIL, PHOS, MG #### [facility] [address] [place] [address] Dr. Brea Causey Cholesterol [Mass/Vol] 78 mg/dL Normal <=200 [facility] Comment on above: Performed By: #### U CLINT, CMP, LIPID, DBIL, PHOS, MG #### [facility] [address] [address] [address] Brea Causey Cholesterol in HDL [Mass/Vol] 41 mg/dL Normal 40-60 [facility] Comment on above: Performed By: #### U CLINT, CMP, LIPID, DBIL, PHOS, MG #### [facility] [address] [address] [address] Brea Causey Cholesterol in LDL [Mass/Vol] 17.8 mg/dL Normal [facility] Comment on above: Performed By: #### U CLINT, CMP, LIPID, DBIL, PHOS, MG #### [facility] [address] [place] [address] Dr. Brea Causey Cholesterol.total/Cho lesterol in HDL [Mass ratio] 1.9 {ratio} Normal [facility] Comment on above: Performed By: #### U CLINT, CMP, LIPID, DBIL, PHOS, MG #### [facility] [address] [address] [address] Brea Causey HDL NORMAL > or = 60 mg/dl - LO W CARDIOVASCULAR RISK <40 mg/dl - HIGH CARDIOVASCULAR RISK Normal The [facility] Comment on above: Performed By: #### U CLINT, CMP, LIPID, DBIL, PHOS, MG #### [facility] [address] [address] [address] Brea Causey LDL CALC NORMAL SEE BELOW Normal [facility] Comment on above: Result Comment: <100 mg/dl OPTIMAL 100 - 129 mg/dl NEAR OR ABOVE OPTIMAL 130 - 159 mg/dl BORDERLINE HIGH 160 - 189 mg/dl HIGH >190 mg/dl VERY HIGH Performed By: #### U CLINT, CMP, LIPID, DBIL, PHOS, MG #### [facility] [address] [address] [address] Brea Causey Triglyceride [Mass/Vol] 96 mg/dL Normal <=150 The [facility] Comment on above: Performed By: #### U CLINT, CMP, LIPID, DBIL, PHOS, MG #### [facility] [address] [address] [address] Brea Causey VLDL CALC 19.2 mg/dL Normal [facility] Comment on above: Performed By: #### U CLINT, CMP, LIPID, DBIL, PHOS, MG #### [facility] [address] [address] [address] Brea Causey MAGNESIUMon 04-30-2022 Magnesium [Mass/Vol] 1.7 mg/dL Critically low 1.8-2.4 [facility] Comment on above: Performed By: #### U CLINT, CMP, LIPID, DBIL, PHOS, MG #### [facility] [address] [address] [address] Brea Causey PHOSPHORUSon 04-30-2022 Phosphate [Mass/Vol] 3.6 mg/dL Normal 2.6-4.7 The [facility] Comment on above: Performed By: #### U CLINT, CMP, LIPID, DBIL, PHOS, MG #### [facility] [address] [address] [address] Brea Causey PROF 14(COMP METB)on 022 Albumin [Mass/Vol] 4.0 g/dL Normal 3.4-5.0 [facility] Comment on above: Performed By: #### U CLINT, CMP, LIPID, DBIL, PHOS, MG #### [facility] [address] [place] [address] Dr. Brea Causey Albumin/Globulin [Mass ratio] 1.3 {ratio} Normal [facility] Comment on above: Performed By: #### U CLINT, CMP, LIPID, DBIL, PHOS, MG #### [facility] [address] [place] [address] Dr. Brea Causey ALP [Catalytic activity/Vol] 196 U/L Critically high 46-116 [facility] Comment on above: Performed By: #### U CLINT, CMP, LIPID, DBIL, PHOS, MG #### [facility] [address] [place] [address] Dr. Brea Causey ALT [Catalytic activity/Vol] 21 U/L Normal 16-63 [facility] Comment on above: Performed By: #### U CLINT, CMP, LIPID, DBIL, PHOS, MG #### [facility] [address] [place] [address] Dr. Brea Causey Anion gap [Moles/Vol] 10.5 mmol/L Normal [facility] Comment on above: Performed By: #### U CLINT, CMP, LIPID, DBIL, PHOS, MG #### [facility] [address] [place] [address] Dr. Brea Causey AST [Catalytic activity/Vol] 16 U/L Normal 15-37 [facility] Comment on above: Performed By: #### U CLINT, CMP, LIPID, DBIL, PHOS, MG #### [facility] [address] [place] [address] Dr. Brea Causey Bilirubin [Mass/Vol] 0.3 mg/dL Normal 0.2-1.0 [facility] Comment on above: Performed By: #### U CLINT, CMP, LIPID, DBIL, PHOS, MG #### [facility] [address] [address] [address] Brea Causey Calcium [Mass/Vol] 8.6 mg/dL Normal 8.5-10.1 [facility] Comment on above: Performed By: #### U CLINT, CMP, LIPID, DBIL, PHOS, MG #### [facility] [address] [address] [address] Brea Causey Chloride [Moles/Vol] 95 mmol/L Critically low 98-107 [facility] Comment on above: Performed By: #### U CLINT, CMP, LIPID, DBIL, PHOS, MG #### [facility] [address] [place] [address] Dr. Brea Causey CO2 [Moles/Vol] 30.9 mmol/L Normal 21.0-32.0 [facility] Comment on above: Performed By: #### U CLINT, CMP, LIPID, DBIL, PHOS, MG #### [facility] [address] [place] [address] Dr. Brea Causey Creatinine [Mass/Vol] 1.00 mg/dL Normal 0.70-1.30 [facility] Comment on above: Performed By: #### U CLINT, CMP, LIPID, DBIL, PHOS, MG #### [facility] [address] [place] [address] Dr. Brea Causey EGFR-AF SALVADOREAN >60 Normal >=60 [facility] Comment on above: Performed By: #### U CLINT, CMP, LIPID, DBIL, PHOS, MG #### [facility] [address] [place] [address] Dr. Brea Causey EGFR-NON AF SALVADOREAN >60 Normal >=60 [facility] Comment on above: Performed By: #### U CLINT, CMP, LIPID, DBIL, PHOS, MG #### [facility] [address] [place] [address] Dr. Brea Causey Globulin (S) [Mass/Vol] 3.2 g/dL Normal [facility] Comment on above: Performed By: #### U CLINT, CMP, LIPID, DBIL, PHOS, MG #### [facility] [address] [address] [address] Brea Causey Glucose [Mass/Vol] 160 mg/dL Critically high 74-106 [facility] Comment on above: Performed By: #### U CLINT, CMP, LIPID, DBIL, PHOS, MG #### [facility] [address] [place] [address] Dr. Brea Causey Potassium [Moles/Vol] 5.4 mmol/L Critically high 3.5-5.1 [facility] Comment on above: Performed By: #### U CLINT, CMP, LIPID, DBIL, PHOS, MG #### [facility] [address] [address] [address] Brea Causey Protein [Mass/Vol] 7.2 g/dL Normal 6.4-8.2 [facility] Comment on above: Performed By: #### U CLINT, CMP, LIPID, DBIL, PHOS, MG #### [facility] [address] [place] [address] Dr. Brea Causey Sodium [Moles/Vol] 131 mmol/L Critically low 136-145 [facility] Comment on above: Performed By: #### U CLINT, CMP, LIPID, DBIL, PHOS, MG #### [facility] [address] [place] [address] Dr. Brea Causey Urea nitrogen [Mass/Vol] 11.0 mg/dL Normal 7.0-18.0 [facility] Comment on above: Performed By: #### U CLINT, CMP, LIPID, DBIL, PHOS, MG #### [facility] [address] [place] [address] Dr. Brea Causey Urea nitrogen/Creatinine [Mass ratio] 11.0 mg/mg Normal [facility] Comment on above: Performed By: #### U CLINT, CMP, LIPID, DBIL, PHOS, MG #### [facility] [address] [place] [address] Dr. Brea Causey URIC ACID SERUMon 04-30-2022 Urate [Mass/Vol] 5.9 mg/dL Normal 3.5-7.2 [facility] Comment on above: Performed By: #### U CLINT, CMP, LIPID, DBIL, PHOS, MG #### [facility] [address] [address] [address] Brea Causey FK506 (TACROLIMUS) WHOLE BLO ODon 04-06-2022 Tacrolimus (FK506), Blood 3.0 ng/mL Normal 2.0-20.0 [facility] Comment on above: Result Comment: Trou gh (immediately following transplant) 15.0 . Trough (steady state, 2 weeks or more after transplant): 3.0 - 8.0 . Performed by LC-MS/MS technology. Performed By: #### U CLINT, CMP, LIPID, DBIL, PHOS, MG #### [facility] [address] [place] [address] Dr. Brea Causey BILIRUBIN CONJUGATED (DIRECT )on 04-03-2022 BILI, CONJUGATED 0.1 mg/dL Normal 0.0-0.2 [facility] Comment on above: Performed By: #### U CLINT, CMP, LIPID, DBIL, PHOS, MG #### [facility] [address] [place] [address] Dr. Brea Causey CBC AUTO DIFFon 04-03-2022 BASO # 0.0 103/ul Normal 0.0-0.1 [facility] Comment on above: Performed By: #### U CLINT, CMP, LIPID, DBIL, PHOS, MG #### [facility] [address] [place] [address] Dr. Brea Causey Basophils/100 WBC (Bld) 0.5 % Normal 0.2-2.0 [facility] Comment on above: Performed By: #### U CLINT, CMP, LIPID, DBIL, PHOS, MG #### [facility] [address] [address] [address] Brea Cuasey EO # 0.1 103/ul Normal 0.0-0.7 [facility] Comment on above: Performed By: #### U CLINT, CMP, LIPID, DBIL, PHOS, MG #### [facility] [address] [address] [address] Brea Causey Eosinophils/100 WBC (Bld) 2.5 % Normal 0.9-7.0 [facility] Comment on above: Performed By: #### U CLINT, CMP, LIPID, DBIL, PHOS, MG #### [facility] [address] [place] [address] Dr. Brea Causey Erythrocyte distribution width (RBC) [Ratio] 13.3 % Normal 11.0-15.0 [facility] Comment on above: Performed By: #### U CLINT, CMP, LIPID, DBIL, PHOS, MG #### [facility] [address] [place] [address] Dr. Brea Causey Hematocrit (Bld) [Volume fraction] 36.4 % Critically low 42.0-54.0 [facility] Comment on above: Performed By: #### U CLINT, CMP, LIPID, DBIL, PHOS, MG #### [facility] [address] [place] [address] Dr. Brea Causey Hemoglobin (Bld) [Mass/Vol] 12.3 g/dL Critically low 14.0-18.0 [facility] Comment on above: Performed By: #### U CLINT, CMP, LIPID, DBIL, PHOS, MG #### [facility] [address] [place] [address] Dr. Brea Causey IG # 0.03 10e3/ul Normal 0.00-0.03 [facility] Comment on above: Performed By: #### U CLINT, CMP, LIPID, DBIL, PHOS, MG #### [facility] [address] [place] [address] Dr. Brea Causey IG % 0.5 % Normal 0.0-0.5 [facility] Comment on above: Performed By: #### U CLINT, CMP, LIPID, DBIL, PHOS, MG #### [facility] [address] [place] [address] Dr. Brea Causey LYMPH # 0.9 103/ul Critically low 1.2-3.8 [facility] Comment on above: Performed By: #### U CLINT, CMP, LIPID, DBIL, PHOS, MG #### [facility] [address] [place], [place] [id number] Dr. Brea Causey Lymphocytes/100 WBC (Bld) 16.9 % Critically low 20.5-60.0 [facility] Comment on above: Performed By: #### U CLINT, CMP, LIPID, DBIL, PHOS, MG #### [facility] [address] [place] [address] Dr. Brea Causey MANUAL DIFF REQ NO Normal [facility] Comment on above: Performed By: #### U CLINT, CMP, LIPID, DBIL, PHOS, MG #### [facility] [address] [place] [address] Dr. Brea Causey MCH (RBC) [Entitic mass] 29.3 pg Normal 25.9-34.0 [facility] Comment on above: Performed By: #### U CLINT, CMP, LIPID, DBIL, PHOS, MG #### [facility] [address] [place] [address] Dr. Brea Causey MCHC (RBC) [Mass/Vol] 33.8 g/dL Normal 29.9-35.2 [facility] Comment on above: Performed By: #### U CLINT, CMP, LIPID, DBIL, PHOS, MG #### [facility] [address] [place] [address] Dr. Brea Causey MCV (RBC) [Entitic vol] 86.7 fL Normal 80.0-94.0 [facility] Comment on above: Performed By: #### U CLINT, CMP, LIPID, DBIL, PHOS, MG #### [facility] [address] [place] [address] Dr. Brea Causey MONO # 0.6 103/ul Normal 0.3-0.8 The [facility] Comment on above: Performed By: #### U CLINT, CMP, LIPID, DBIL, PHOS, MG #### [facility] [address] [place] [address] Dr. Brea Causey Monocytes/100 WBC (Bld) 10.1 % Normal 1.7-12.0 [facility] Comment on above: Performed By: #### U CLINT, CMP, LIPID, DBIL, PHOS, MG #### [facility] [address] [address] [address] Brea Causey NEUT # 3.9 103/ul Normal 1.4-6.5 [facility] Comment on above: Performed By: #### U CLINT, CMP, LIPID, DBIL, PHOS, MG #### [facility] [address] [address] [address] Brea Causey Neutrophils/100 WBC (Bld) 69.5 % Normal 43.0-75.0 [facility] Comment on above: Performed By: #### U CLINT, CMP, LIPID, DBIL, PHOS, MG #### [facility] [address] [address] [address] Bera Causey Platelet mean volume (Bld) [Entitic vol] 9.2 fL Critically low 9.5-13.5 [facility] Comment on above: Performed By: #### U CLINT, CMP, LIPID, DBIL, PHOS, MG #### [facility] [address] [address] [address] Brea Causey PLT 228 103/ul Normal 150-450 [facility] Comment on above: Performed By: #### U CLINT, CMP, LIPID, DBIL, PHOS, MG #### [facility] [address] [address] [address] Brea Causey RBC 4.20 106/ul Critically low 4.70-6.10 [facility] Comment on above: Performed By: #### U CLINT, CMP, LIPID, DBIL, PHOS, MG #### [facility] [address] [address] [address] Brea Causey WBC 5.6 103/ul Normal 4.0-11.0 [facility] Comment on above: Performed By: #### U CLINT, CMP, LIPID, DBIL, PHOS, MG #### [facility] [address] [place] [address] Dr. Brea Causey LIPID PROFILEon 04-03-2022 CHOL-HDL RATIO NORM SEE BELOW Normal [facility] Comment on above: Result Comment: 3.3 - 4.4 LOW RISK 4.4 - 7.1 AVERAGE RISK 7.1 - 11.0 MODERATE RISK >11.0 HIGH RISK Performed By: #### U CLINT, CMP, LIPID, DBIL, PHOS, MG #### [facility] [address] [address] [address] Brea Causey Cholesterol [Mass/Vol] 84 mg/dL Normal <=200 [facility] Comment on above: Performed By: #### U CLINT, CMP, LIPID, DBIL, PHOS, MG #### [facility] [address] [address] [address] Brea Causey Cholesterol in HDL [Mass/Vol] 45 mg/dL Normal 40-60 [facility] Comment on above: Performed By: #### U CLINT, CMP, LIPID, DBIL, PHOS, MG #### [facility] [address] [address] [address] Brea Causey Cholesterol in LDL [Mass/Vol] 22.8 mg/dL Normal [facility] Comment on above: Performed By: #### U CLINT, CMP, LIPID, DBIL, PHOS, MG #### [facility] [address] [address] [address] Brea Causey Cholesterol.total/Cho lesterol in HDL [Mass ratio] 1.9 {ratio} Normal [facility] Comment on above: Performed By: #### U CLINT, CMP, LIPID, DBIL, PHOS, MG #### [facility] [address] [address] [address] Brea aCusey HDL NORMAL > or = 60 mg/dl - LO W CARDIOVASCULAR RISK <40 mg/dl - HIGH CARDIOVASCULAR RISK Normal [facility] Comment on above: Performed By: #### U CLINT, CMP, LIPID, DBIL, PHOS, MG #### [facility] [address] [address] [address] Brea Causey LDL CALC NORMAL SEE BELOW Normal [facility] Comment on above: Result Comment: <100 mg/dl OPTIMAL 100 - 129 mg/dl NEAR OR ABOVE OPTIMAL 130 - 159 mg/dl BORDERLINE HIGH 160 - 189 mg/dl HIGH >190 mg/dl VERY HIGH Performed By: #### U CLINT, CMP, LIPID, DBIL, PHOS, MG #### [facility] [address] [address] [address] Brea Causey Triglyceride [Mass/Vol] 81 mg/dL Normal <=150 [facility] Comment on above: Performed By: #### U CLINT, CMP, LIPID, DBIL, PHOS, MG #### [facility] [address] [address] [address] Brea Causey VLDL CALC 16.2 mg/dL Normal [facility] Comment on above: Performed By: #### U CLINT, CMP, LIPID, DBIL, PHOS, MG #### [facility] [address] [address] [address] Brea Causye MAGNESIUMon 04-03-2022 Magnesium [Mass/Vol] 1.6 mg/dL Critically low 1.8-2.4 [facility] Comment on above: Performed By: #### U CLINT, CMP, LIPID, DBIL, PHOS, MG #### [facility] [address] [address] [address] Brea Causey PHOSPHORUSon 04-03-2022 Phosphate [Mass/Vol] 3.9 mg/dL Normal 2.6-4.7 [facility] Comment on above: Performed By: #### U CLINT, CMP, LIPID, DBIL, PHOS, MG #### [facility] [address] [address] [address] Brea Causey PROF 14(COMP METB)on 022 Albumin [Mass/Vol] 4.0 g/dL Normal 3.4-5.0 [facility] Comment on above: Performed By: #### U CLINT, CMP, LIPID, DBIL, PHOS, MG #### [facility] [address] [address] [address] Brea Causey Albumin/Globulin [Mass ratio] 1.2 {ratio} Normal [facility] Comment on above: Performed By: #### U CLINT, CMP, LIPID, DBIL, PHOS, MG #### [facility] [address] [address] [address] Brea Causey ALP [Catalytic activity/Vol] 196 U/L Critically high 46-116 [facility] Comment on above: Performed By: #### U CLINT, CMP, LIPID, DBIL, PHOS, MG #### [facility] [address] [address] [address] Brea Causey ALT [Catalytic activity/Vol] 19 U/L Normal 16-63 [facility] Comment on above: Performed By: #### U CLINT, CMP, LIPID, DBIL, PHOS, MG #### [facility] [address] [address] [address] Brea Causey Anion gap [Moles/Vol] 10.2 mmol/L Normal [facility] Comment on above: Performed By: #### U CLINT, CMP, LIPID, DBIL, PHOS, MG #### [facility] [address] [place] [address] Dr. Brea Causey AST [Catalytic activity/Vol] 15 U/L Normal 15-37 [facility] Comment on above: Performed By: #### U CLINT, CMP, LIPID, DBIL, PHOS, MG #### [facility] [address] [place] [address] Dr. Brea Causey Bilirubin [Mass/Vol] 0.3 mg/dL Normal 0.2-1.0 [facility] Comment on above: Performed By: #### U CLINT, CMP, LIPID, DBIL, PHOS, MG #### [facility] [address] [place] [address] Dr. Brea Causey Calcium [Mass/Vol] 8.2 mg/dL Critically low 8.5-10.1 [facility] Comment on above: Performed By: #### U CLINT, CMP, LIPID, DBIL, PHOS, MG #### [facility] [address] [address] [address] Brea Causey Chloride [Moles/Vol] 97 mmol/L Critically low 98-107 [facility] Comment on above: Performed By: #### U CLINT, CMP, LIPID, DBIL, PHOS, MG #### [facility] [address] [place] [address] Dr. Brea Causey CO2 [Moles/Vol] 28.2 mmol/L Normal 21.0-32.0 [facility] Comment on above: Performed By: #### U CLINT, CMP, LIPID, DBIL, PHOS, MG #### [facility] [address] [address] [address] Brea Causey Creatinine [Mass/Vol] 1.00 mg/dL Normal 0.70-1.30 [facility] Comment on above: Performed By: #### U CLINT, CMP, LIPID, DBIL, PHOS, MG #### [facility] [address] [address] [address] Brea Causey EGFR-AF SALVADOREAN >60 Normal >=60 [facility] Comment on above: Performed By: #### U CLINT, CMP, LIPID, DBIL, PHOS, MG #### [facility] [address] [place] [address] Dr. Brea Causey EGFR-NON AF SALVADOREAN >60 Normal >=60 [facility] Comment on above: Performed By: #### U CLINT, CMP, LIPID, DBIL, PHOS, MG #### [facility] [address] [place] [address] Dr. Brea Causey Globulin (S) [Mass/Vol] 3.3 g/dL Normal [facility] Comment on above: Performed By: #### U CLINT, CMP, LIPID, DBIL, PHOS, MG #### [facility] [address] [address] [address] Brea Causey Glucose [Mass/Vol] 164 mg/dL Critically high 74-106 [facility] Comment on above: Performed By: #### U CLINT, CMP, LIPID, DBIL, PHOS, MG #### [facility] [address] [address] [address] Brea Causey Potassium [Moles/Vol] 4.4 mmol/L Normal 3.5-5.1 [facility] Comment on above: Performed By: #### U CLINT, CMP, LIPID, DBIL, PHOS, MG #### [facility] [address] [address] [address] Brea Causey Protein [Mass/Vol] 7.3 g/dL Normal 6.4-8.2 [facility] Comment on above: Performed By: #### U CLINT, CMP, LIPID, DBIL, PHOS, MG #### [facility] [address] [address] [address] Brea Causey Sodium [Moles/Vol] 131 mmol/L Critically low 136-145 [facility] Comment on above: Performed By: #### U CLINT, CMP, LIPID, DBIL, PHOS, MG #### [facility] [address] [address] [address] Brea Causey Urea nitrogen [Mass/Vol] 13.0 mg/dL Normal 7.0-18.0 [facility] Comment on above: Performed By: #### U CLINT, CMP, LIPID, DBIL, PHOS, MG #### [facility] [address] [place] [address] Dr. Brea Causey Urea nitrogen/Creatinine [Mass ratio] 13.0 mg/mg Normal [facility] Comment on above: Performed By: #### U CLINT, CMP, LIPID, DBIL, PHOS, MG #### [facility] [address] [address] [address] Brea Causey URIC ACID SERUMon 04-03-2022 Urate [Mass/Vol] 6.1 mg/dL Normal 3.5-7.2 [facility] Comment on above: Performed By: #### U CLINT, CMP, LIPID, DBIL, PHOS, MG #### [facility] [address] [address] [address] Brea Causey TESTOSTERONE, FREE,DIRECT, T OTALon 03-13-2022 Free Testosterone(Direct) 6.9 pg/mL Normal 6.6-18.1 [facility] Comment on above: Result Comment: Perf ormed at: BN Performed By: #### T ESTFRD #### [facility] [address] [place] [address] Dr. Brea Causey Testosterone [Mass/Vol] 428 ng/dL Normal 264-916 [facility] Comment on above: Result Comment: Adul t male reference interval is based on a population of healthy nonobese males (BMI <30) between 19 and 39 years old. Steven, et.al. JCEM 2017,102;0692-6910. PMID: [id number]. Performed at: CB Performed By: #### T ESTFRD #### [facility] [address] [place] [address] Dr. Brea Causey BK VIRUS PCR QUANTon 022 BKV DNA QUANT PCR PLASMA Negative Normal Negative [facility] Comment on above: Result Comment: No B K DNA detected. . The linear range of the assay is 22 - 100,000,000 IU/mL. Performed By: #### B KVIRUS #### [facility] [address] [place] [address] Dr. Brea Causey Log10 BKV DNA Plasma Normal [facility] Comment on above: Performed By: #### B KVIRUS #### [facility] [address] [place] [address] Dr. Brea Causey FK506 (TACROLIMUS) WHOLE BLO ODon 03-11-2022 Tacrolimus (FK506), Blood 4.7 ng/mL Normal 2.0-20.0 [facility] Comment on above: Result Comment: Trou gh (immediately following transplant) 15.0 . Trough (steady state, 2 weeks or more after transplant): 3.0 - 8.0 . Performed by LC-MS/MS technology. Performed By: #### C BC #### [facility] [address] [place] [address] Dr. Brea Causey BILIRUBIN CONJUGATED (DIRECT )on 03-08-2022 BILI, CONJUGATED 0.1 mg/dL Normal 0.0-0.2 [facility] Comment on above: Performed By: #### U CLINT, CMP, LIPID, DBIL, PHOS, MG #### [facility] [address] [place] [address] Dr. Brea Causey CBC AUTO DIFFon 03-08-2022 BASO # 0.0 103/ul Normal 0.0-0.1 [facility] Comment on above: Performed By: #### U CLINT, CMP, LIPID, DBIL, PHOS, MG #### [facility] [address] [address] [address] Brea Causey Basophils/100 WBC (Bld) 0.7 % Normal 0.2-2.0 [facility] Comment on above: Performed By: #### U CLINT, CMP, LIPID, DBIL, PHOS, MG #### [facility] [address] [place] [address] Dr. Brea Causey EO # 0.2 103/ul Normal 0.0-0.7 [facility] Comment on above: Performed By: #### U CLINT, CMP, LIPID, DBIL, PHOS, MG #### [facility] [address] [place] [address] Dr. Brea Causey Eosinophils/100 WBC (Bld) 3.1 % Normal 0.9-7.0 [facility] Comment on above: Performed By: #### U CLINT, CMP, LIPID, DBIL, PHOS, MG #### [facility] [address] [place] [address] Dr. Brea Causey Erythrocyte distribution width (RBC) [Ratio] 13.3 % Normal 11.0-15.0 [facility] Comment on above: Performed By: #### U CLINT, CMP, LIPID, DBIL, PHOS, MG #### [facility] [address] [place] [address] Dr. Brea Causey Hematocrit (Bld) [Volume fraction] 35.7 % Critically low 42.0-54.0 [facility] Comment on above: Performed By: #### U CLINT, CMP, LIPID, DBIL, PHOS, MG #### [facility] [address] [place] [address] Dr. Brea Causey Hemoglobin (Bld) [Mass/Vol] 12.0 g/dL Critically low 14.0-18.0 The [facility] Comment on above: Performed By: #### U CLINT, CMP, LIPID, DBIL, PHOS, MG #### [facility] [address] [place] [address] Dr. Brea Causey IG # 0.06 10e3/ul Critically high 0.00-0.03 [facility] Comment on above: Performed By: #### U CLINT, CMP, LIPID, DBIL, PHOS, MG #### [facility] [address] [address] [address] Brea Causey IG % 1.0 % Critically high 0.0-0.5 [facility] Comment on above: Performed By: #### U CLINT, CMP, LIPID, DBIL, PHOS, MG #### [facility] [address] [place] [address] Dr. Brea Causey LYMPH # 0.8 103/ul Critically low 1.2-3.8 [facility] Comment on above: Performed By: #### U CLINT, CMP, LIPID, DBIL, PHOS, MG #### [facility] [address] [place] [address] Dr. Brea Causey Lymphocytes/100 WBC (Bld) 12.9 % Critically low 20.5-60.0 [facility] Comment on above: Performed By: #### U CLINT, CMP, LIPID, DBIL, PHOS, MG #### [facility] [address] [place] [address] Dr. Brea Causey MANUAL DIFF REQ NO Normal [facility] Comment on above: Performed By: #### U CLINT, CMP, LIPID, DBIL, PHOS, MG #### [facility] [address] [place] [address] Dr. Brea Causey MCH (RBC) [Entitic mass] 29.5 pg Normal 25.9-34.0 [facility] Comment on above: Performed By: #### U CLINT, CMP, LIPID, DBIL, PHOS, MG #### [facility] [address] [place] [address] Dr. Brea Causey MCHC (RBC) [Mass/Vol] 33.6 g/dL Normal 29.9-35.2 [facility] Comment on above: Performed By: #### U CLINT, CMP, LIPID, DBIL, PHOS, MG #### [facility] [address] [place] [address] Dr. Brea Causey MCV (RBC) [Entitic vol] 87.7 fL Normal 80.0-94.0 [facility] Comment on above: Performed By: #### U CLINT, CMP, LIPID, DBIL, PHOS, MG #### [facility] [address] [place] [address] Dr. Brea Causey MONO # 0.6 103/ul Normal 0.3-0.8 The [facility] Comment on above: Performed By: #### U CLINT, CMP, LIPID, DBIL, PHOS, MG #### [facility] [address] [place] [address] Dr. Brea Causey Monocytes/100 WBC (Bld) 9.8 % Normal 1.7-12.0 The [facility] Comment on above: Performed By: #### U CLINT, CMP, LIPID, DBIL, PHOS, MG #### [facility] [address] [place] [address] Dr. Brea Causey NEUT # 4.4 103/ul Normal 1.4-6.5 The [facility] Comment on above: Performed By: #### U CLINT, CMP, LIPID, DBIL, PHOS, MG #### [facility] [address] [place] [address] Dr. Brea Causey Neutrophils/100 WBC (Bld) 72.5 % Normal 43.0-75.0 The [facility] Comment on above: Performed By: #### U CLINT, CMP, LIPID, DBIL, PHOS, MG #### [facility] [address] [place] [address] Dr. Brea Causey Platelet mean volume (Bld) [Entitic vol] 9.6 fL Normal 9.5-13.5 The [facility] Comment on above: Performed By: #### U CLINT, CMP, LIPID, DBIL, PHOS, MG #### [facility] [address] [place] [address] Dr. Brea Causey PLT 265 103/ul Normal 150-450 The [facility] Comment on above: Performed By: #### U CLINT, CMP, LIPID, DBIL, PHOS, MG #### [facility] [address] [place] [address] Dr. Brea Causey RBC 4.07 106/ul Critically low 4.70-6.10 [facility] Comment on above: Performed By: #### U CLINT, CMP, LIPID, DBIL, PHOS, MG #### [facility] [address] [address] [address] Brea Causey WBC 6.0 103/ul Normal 4.0-11.0 [facility] Comment on above: Performed By: #### U CLINT, CMP, LIPID, DBIL, PHOS, MG #### [facility] [address] [address] [address] Brea Causey GLYCOHEMOGLOBIN A1Con 2021 ADA RECOMMENDATION SEE BELOW Normal [facility] Comment on above: Result Comment: ADA RECOMMENDED LIMIT 4.0 - 6.0 ADA THERAPEUTIC TARGET < 7.0 ACTION SUGGESTED > 7.0 Performed By: #### U CLINT, CMP, LIPID, DBIL, PHOS, MG #### [facility] [address] [address] [address] Brea Causey Glucose [Mass/Vol] 169 mg/dL Normal [facility] Comment on above: Performed By: #### U CLINT, CMP, LIPID, DBIL, PHOS, MG #### [facility] [address] [address] [address] Brea Causey HbA1c (Bld) [Mass fraction] 7.5 % Critically high 4.5-6.2 [facility] Comment on above: Performed By: #### U CLINT, CMP, LIPID, DBIL, PHOS, MG #### [facility] [address] [address] [address] Brea Causey LIPID PROFILEon 03-08-2022 CHOL-HDL RATIO NORM SEE BELOW Normal [facility] Comment on above: Result Comment: 3.3 - 4.4 LOW RISK 4.4 - 7.1 AVERAGE RISK 7.1 - 11.0 MODERATE RISK >11.0 HIGH RISK Performed By: #### U CLINT, CMP, LIPID, DBIL, PHOS, MG #### [facility] [address] [address] [address] Brea Causey Cholesterol [Mass/Vol] 77 mg/dL Normal <=200 [facility] Comment on above: Performed By: #### U CLINT, CMP, LIPID, DBIL, PHOS, MG #### [facility] [address] [address] [address] Brea Causey Cholesterol in HDL [Mass/Vol] 49 mg/dL Normal 40-60 The [facility] Comment on above: Performed By: #### U CLINT, CMP, LIPID, DBIL, PHOS, MG #### [facility] [address] [address] [address] Brea Causey Cholesterol in LDL [Mass/Vol] 20.4 mg/dL Normal [facility] Comment on above: Performed By: #### U CLINT, CMP, LIPID, DBIL, PHOS, MG #### [facility] [address] [place] [address] Dr. Brea Causey Cholesterol.total/Cho lesterol in HDL [Mass ratio] 1.6 {ratio} Normal [facility] Comment on above: Performed By: #### U CLINT, CMP, LIPID, DBIL, PHOS, MG #### [facility] [address] [address] [address] Brea Causey HDL NORMAL > or = 60 mg/dl - LO W CARDIOVASCULAR RISK <40 mg/dl - HIGH CARDIOVASCULAR RISK Normal [facility] Comment on above: Performed By: #### U CLINT, CMP, LIPID, DBIL, PHOS, MG #### [facility] [address] [address] [address] Brea Causey LDL CALC NORMAL SEE BELOW Normal [facility] Comment on above: Result Comment: <100 mg/dl OPTIMAL 100 - 129 mg/dl NEAR OR ABOVE OPTIMAL 130 - 159 mg/dl BORDERLINE HIGH 160 - 189 mg/dl HIGH >190 mg/dl VERY HIGH Performed By: #### U CLINT, CMP, LIPID, DBIL, PHOS, MG #### [facility] [address] [address] [address] Brea Causey Triglyceride [Mass/Vol] 38 mg/dL Normal <=150 The [facility] Comment on above: Performed By: #### U CLINT, CMP, LIPID, DBIL, PHOS, MG #### [facility] [address] [address] [address] Brea Causey VLDL CALC 7.6 mg/dL Normal [facility] Comment on above: Performed By: #### U CLINT, CMP, LIPID, DBIL, PHOS, MG #### [facility] [address] [address] [address] Brea Causey MAGNESIUMon 03-08-2022 Magnesium [Mass/Vol] 1.5 mg/dL Critically low 1.8-2.4 [facility] Comment on above: Performed By: #### U CLINT, CMP, LIPID, DBIL, PHOS, MG #### [facility] [address] [address] [address] Brea Causey PHOSPHORUSon 03-08-2022 Phosphate [Mass/Vol] 3.6 mg/dL Normal 2.6-4.7 [facility] Comment on above: Performed By: #### U CLINT, CMP, LIPID, DBIL, PHOS, MG #### [facility] [address] [address] [address] Brea Causey PROF 14(COMP METB)on 022 Albumin [Mass/Vol] 4.0 g/dL Normal 3.4-5.0 [facility] Comment on above: Performed By: #### U CLINT, CMP, LIPID, DBIL, PHOS, MG #### [facility] [address] [address] [address] Brea Causey Albumin/Globulin [Mass ratio] 1.2 {ratio} Normal [facility] Comment on above: Performed By: #### U CLINT, CMP, LIPID, DBIL, PHOS, MG #### [facility] [address] [address] [address] Brea Causey ALP [Catalytic activity/Vol] 176 U/L Critically high 46-116 [facility] Comment on above: Performed By: #### U CLINT, CMP, LIPID, DBIL, PHOS, MG #### [facility] [address] [address] [address] Brea Causey ALT [Catalytic activity/Vol] 21 U/L Normal 16-63 The [facility] Comment on above: Performed By: #### U CLINT, CMP, LIPID, DBIL, PHOS, MG #### [facility] [address] [address] [address] Brea Causey Anion gap [Moles/Vol] 12.0 mmol/L Normal [facility] Comment on above: Performed By: #### U CLINT, CMP, LIPID, DBIL, PHOS, MG #### [facility] [address] [address] [address] Brea Causey AST [Catalytic activity/Vol] 13 U/L Critically low 15-37 [facility] Comment on above: Performed By: #### U CLINT, CMP, LIPID, DBIL, PHOS, MG #### [facility] [address] [place] [address] Dr. Brea Causey Bilirubin [Mass/Vol] 0.3 mg/dL Normal 0.2-1.0 [facility] Comment on above: Performed By: #### U CLINT, CMP, LIPID, DBIL, PHOS, MG #### [facility] [address] [place] [address] Dr. Brea Causey Calcium [Mass/Vol] 7.9 mg/dL Critically low 8.5-10.1 [facility] Comment on above: Performed By: #### U CLINT, CMP, LIPID, DBIL, PHOS, MG #### [facility] [address] [place] [address] Dr. Brea Causey Chloride [Moles/Vol] 100 mmol/L Normal 98-107 [facility] Comment on above: Performed By: #### U CLINT, CMP, LIPID, DBIL, PHOS, MG #### [facility] [address] [address] [address] Brea Causey CO2 [Moles/Vol] 27.3 mmol/L Normal 21.0-32.0 [facility] Comment on above: Performed By: #### U CLINT, CMP, LIPID, DBIL, PHOS, MG #### [facility] [address] [place] [address] Dr. Brea Causey Creatinine [Mass/Vol] 1.00 mg/dL Normal 0.70-1.30 [facility] Comment on above: Performed By: #### U CLINT, CMP, LIPID, DBIL, PHOS, MG #### [facility] [address] [address] [address] Brea Causey EGFR-AF SALVADOREAN >60 Normal >=60 [facility] Comment on above: Performed By: #### U CLINT, CMP, LIPID, DBIL, PHOS, MG #### [facility] [address] [address] [address] Brea Causey EGFR-NON AF SALVADOREAN >60 Normal >=60 [facility] Comment on above: Performed By: #### U CLINT, CMP, LIPID, DBIL, PHOS, MG #### [facility] [address] [place] [address] Dr. Brea Causey Globulin (S) [Mass/Vol] 3.3 g/dL Normal [facility] Comment on above: Performed By: #### U CLINT, CMP, LIPID, DBIL, PHOS, MG #### [facility] [address] [place] [address] Dr. Brea Causey Glucose [Mass/Vol] 155 mg/dL Critically high 74-106 [facility] Comment on above: Performed By: #### U CLINT, CMP, LIPID, DBIL, PHOS, MG #### [facility] [address] [place] [address] Dr. Brea Causey Potassium [Moles/Vol] 4.3 mmol/L Normal 3.5-5.1 [facility] Comment on above: Performed By: #### U CLINT, CMP, LIPID, DBIL, PHOS, MG #### [facility] [address] [address] [address] Brea Causey Protein [Mass/Vol] 7.3 g/dL Normal 6.4-8.2 [facility] Comment on above: Performed By: #### U CLINT, CMP, LIPID, DBIL, PHOS, MG #### [facility] [address] [place] [address] Dr. Brea Causey Sodium [Moles/Vol] 135 mmol/L Critically low 136-145 Th e [facility] Comment on above: Performed By: #### U CLINT, CMP, LIPID, DBIL, PHOS, MG #### [facility] [address] [address] [address] Brea Causey Urea nitrogen [Mass/Vol] 13.0 mg/dL Normal 7.0-18.0 [facility] Comment on above: Performed By: #### U CLINT, CMP, LIPID, DBIL, PHOS, MG #### [facility] [address] [address] [address] Brea Causey Urea nitrogen/Creatinine [Mass ratio] 13.0 mg/mg Normal [facility] Comment on above: Performed By: #### U CLINT, CMP, LIPID, DBIL, PHOS, MG #### [facility] [address] [place] [address] Dr. Brea Causey URIC ACID SERUMon 03-08-2022 Urate [Mass/Vol] 7.3 mg/dL Critically high 3.5-7.2 [facility] Comment on above: Performed By: #### U CLINT, CMP, LIPID, DBIL, PHOS, MG #### [facility] [address] [place] [address] Dr. Brea Snyder 03-05-2022 L - -------- Specimen: [id number] Received: 03/05/22 Status: CHERI Fair Num: [id number] Spec Type: Surgical Subm Dr: Tj Wells MD Tissues: A Colon Biopsy (COLON BX) B Colon Biopsy (DIVERTICULAR COLITIS) Procedures: HE Stain/4, Gross/Micro L4/2 -------- Age/ Patient Sex Location Account Attending Physician -------- Roger Suarez/[facility] [id number] Tj Wells MD -------- SPEC NUM: [id number] RECD: 03/05/22 STATUS: CHERI FAIR NUM: [id number] ESTEFANI: 03/05/22 DR: Tj Wells MD ENTERED: 03/05/22 [facility] DR: MICHELLE TYPE: Surgical DEPT: S [...] in one cassette labeled B1. -------- Specimen: [id number] Received: 03/05/22 Status: CHERI Fair Num: [id number] Spec Type: Surgical Subm Dr: Tj Wells MD Tissues: A Colon Biopsy (COLON BX) B Colon Biopsy (DIVERTICULAR COLITIS) Procedures: HE Stain/4, Gross/Micro L4/2 -------- Patient: Roger Suarez [id number] (Continued) -------- Specimen: [id number] Received: 03/05/22 (Continued) Signed (signature on file) Kalpana Shaw MD 03/07/22 1025 -------- Specimen: [id number] Received: 03/05/22 Status: CHERI Fair Num: [id number] Spec Type: Surgical Subm Dr: Tj Wells MD Tissues: A Colon Biopsy (COLON BX) B Colon Biopsy (DIVERTICULAR COLITIS) Procedures: HE Stain/4, Gross/Micro L4/2 -------- Patient: Roger Suarez Tyson [id number] (Continued) -------- Specimen: [id number] Received: 03/05/22 (Continued) Microscopic Description A. Two glass slides with H E stained material have been examined. The microscopic findings support the above pathologic diagnosis. B. Two glass slides with H E stained material have been examined. The microscopic findings support the above pathologic diagnosis. CPT Codes 95009?2 -------- -------- Specimen: [id number] Received: 03/05/22 Status: CHERI Fair Num: [id number] Spec Type: Surgical Subm Dr: Tj Wells MD Tissues: A Colon Biopsy (COLON BX) B Colon Biopsy (DIVERTICULAR COLITIS) Procedures: HE Stain/4, Gross/Micro L4/2 -------- Patient: Roger Suarez [id number] (Continued) -------- Signed (signature on file) Kalpana Shaw MD 03/07/22 1025 [facility] COVID-19 Antigenon 2 COVID-19 Antigen Healthcare [...] developed and its performance characteristic determined by [employer] and validated at [facility]. This test has not been FDA [...] for SARS Antigen by ROCHELLE PERFORMED BY: [place] [address] PATHOLOGIST EMPLOYMENT INTERVIEWER FEI WOODRUFF M.D. Normal [facility] Comment on above: Performed By: #### C OVID-19 MARUQISE, SOFIANEG #### [address] COVID-19 SOFIAOrdered By: Sheila Wells on 03-01-2022 SARS-CoV+SARS-CoV-2 (COVID-19) Ag IA.rapid Ql (Resp) Negative Negative [facility] Comment on above: This is a duplicate Marquise SARS Antigen (ROCHELLE) result to be used for statistical tracking purpose only. No Panel InformationOrdered By: Tj Wells on 03-01-2022 SARS Antigen (LFIA) [facility] Marquise Ag Negativeon 03-01-20 22 Marquise Ag Negative Negative Normal Negative [facility] Comment on above: Result Comment: This is a duplicate Marquise SARS Antigen (ROCHELLE) result to be used for statistical tracking purpose only. PERFORMED BY: [place] [address] PATHOLOGIST EMPLOYMENT INTERVIEWER FEI WOODRUFF M.D. Performed By: #### C OVID-19 MARQUISE, SOFIANEG #### [facility] [address] [id number] [facility] FK506 (TACROLIMUS) WHOLE BLO ODon 02-05-2022 Tacrolimus (FK506), Blood 5.4 ng/mL Normal 2.0-20.0 [facility] Comment on above: Result Comment: Trou gh (immediately following transplant) 15.0 . Trough (steady state, 2 weeks or more after transplant): 3.0 - 8.0 . Performed by LC-MS/MS technology. Performed By: #### U CLINT, CMP, LIPID, DBIL, PHOS, MG #### [facility] [address] [place] [address] Dr. Brea Causey BILIRUBIN CONJUGATED (DIRECT )on 02-01-2022 BILI, CONJUGATED 0.1 mg/dL Normal 0.0-0.2 [facility] Comment on above: Performed By: #### C BC #### [facility] [address] [place] [address] Dr. Brea Causey CBC AUTO DIFFon 02-01-2022 BASO # 0.0 103/ul Normal 0.0-0.1 [facility] Comment on above: Performed By: #### B KVIRUS #### [facility] [address] [place] [address] Dr. Brea Causey Basophils/100 WBC (Bld) 0.6 % Normal 0.2-2.0 [facility] Comment on above: Performed By: #### B KVIRUS #### [facility] [address] [place] [address] Dr. Brea Causey EO # 0.2 103/ul Normal 0.0-0.7 [facility] Comment on above: Performed By: #### B KVIRUS #### [facility] [address] [place] [address] Dr. Brea Causey Eosinophils/100 WBC (Bld) 3.5 % Normal 0.9-7.0 [facility] Comment on above: Performed By: #### B KVIRUS #### [facility] [address] [place] [address] Dr. Brea Causey Erythrocyte distribution width (RBC) [Ratio] 13.0 % Normal 11.0-15.0 [facility] Comment on above: Performed By: #### B KVIRUS #### [facility] [address] [place] [address] Dr. Brea Causey Hematocrit (Bld) [Volume fraction] 36.9 % Critically low 42.0-54.0 [facility] Comment on above: Performed By: #### B KVIRUS #### [facility] [address] [place] [address] Dr. Brea Causey Hemoglobin (Bld) [Mass/Vol] 12.0 g/dL Critically low 14.0-18.0 [facility] Comment on above: Performed By: #### B KVIRUS #### [facility] [address] [place] [address] Dr. Brea Causey IG # 0.07 10e3/ul Critically high 0.00-0.03 [facility] Comment on above: Performed By: #### B KVIRUS #### [facility] [address] [place] [address] Dr. Brea Causey IG % 1.0 % Critically high 0.0-0.5 [facility] Comment on above: Performed By: #### B KVIRUS #### [facility] [address] [place] [address] Dr. Brea Causey LYMPH # 1.0 103/ul Critically low 1.2-3.8 [facility] Comment on above: Performed By: #### B KVIRUS #### [facility] [address] [place] [address] Dr. Brea Causey Lymphocytes/100 WBC (Bld) 14.2 % Critically low 20.5-60.0 [facility] Comment on above: Performed By: #### B KVIRUS #### [facility] [address] [place] [address] Dr. Brea Causey MANUAL DIFF REQ NO Normal [facility] Comment on above: Performed By: #### B KVIRUS #### [facility] [address] [place] [address] Dr. Brea Causey MCH (RBC) [Entitic mass] 29.1 pg Normal 25.9-34.0 [facility] Comment on above: Performed By: #### B KVIRUS #### [facility] [address] [place] [address] Dr. Brea Causey MCHC (RBC) [Mass/Vol] 32.5 g/dL Normal 29.9-35.2 The [facility] Comment on above: Performed By: #### B KVIRUS #### [facility] [address] [place] [address] Dr. Brea Causey MCV (RBC) [Entitic vol] 89.6 fL Normal 80.0-94.0 The [facility] Comment on above: Performed By: #### B KVIRUS #### [facility] [address] [place] [address] Dr. Brea Causey MONO # 0.7 103/ul Normal 0.3-0.8 The [facility] Comment on above: Performed By: #### B KVIRUS #### [facility] [address] [place] [address] Dr. Brea Causey Monocytes/100 WBC (Bld) 9.9 % Normal 1.7-12.0 The [facility] Comment on above: Performed By: #### B KVIRUS #### [facility] [address] [place] [address] Dr. Brea Causey NEUT # 4.9 103/ul Normal 1.4-6.5 The [facility] Comment on above: Performed By: #### B KVIRUS #### [facility] [address] [place] [address] Dr. Brea Causey Neutrophils/100 WBC (Bld) 70.8 % Normal 43.0-75.0 The [facility] Comment on above: Performed By: #### B KVIRUS #### [facility] [address] [place] [address] Dr. Brea Causey Platelet mean volume (Bld) [Entitic vol] 9.6 fL Normal 9.5-13.5 The [facility] Comment on above: Performed By: #### B KVIRUS #### [facility] [address] [address] [address] Brea Causey PLT 247 103/ul Normal 150-450 [facility] Comment on above: Performed By: #### B KVIRUS #### [facility] [address] [address] [address] Brea Causey RBC 4.12 106/ul Critically low 4.70-6.10 [facility] Comment on above: Performed By: #### B KVIRUS #### [facility] [address] [address] [address] Brea Causey WBC 6.9 103/ul Normal 4.0-11.0 [facility] Comment on above: Performed By: #### B KVIRUS #### [facility] [address] [place] [address] Dr. Brea Causey LIPID PROFILEon 02-01-2022 CHOL-HDL RATIO NORM SEE BELOW Normal [facility] Comment on above: Result Comment: 3.3 - 4.4 LOW RISK 4.4 - 7.1 AVERAGE RISK 7.1 - 11.0 MODERATE RISK >11.0 HIGH RISK Performed By: #### C BC #### [facility] [address] [place] [address] Dr. Brea Causey Cholesterol [Mass/Vol] 77 mg/dL Normal <=200 [facility] Comment on above: Performed By: #### C BC #### [facility] [address] [place] [address] Dr. Brea Causey Cholesterol in HDL [Mass/Vol] 40 mg/dL Normal 40-60 [facility] Comment on above: Performed By: #### C BC #### [facility] [address] [address] [address] Brea Causey Cholesterol in LDL [Mass/Vol] 21.0 mg/dL Normal [facility] Comment on above: Performed By: #### C BC #### [facility] [address] [place] [address] Dr. Brea Causey Cholesterol.total/Cho lesterol in HDL [Mass ratio] 1.9 {ratio} Normal [facility] Comment on above: Performed By: #### C BC #### [facility] [address] [address] [address] Brea Causey HDL NORMAL > or = 60 mg/dl - LO W CARDIOVASCULAR RISK <40 mg/dl - HIGH CARDIOVASCULAR RISK Normal [facility] Comment on above: Performed By: #### C BC #### [facility] [address] [address] [address] Brea Causye LDL CALC NORMAL SEE BELOW Normal [facility] Comment on above: Result Comment: <100 mg/dl OPTIMAL 100 - 129 mg/dl NEAR OR ABOVE OPTIMAL 130 - 159 mg/dl BORDERLINE HIGH 160 - 189 mg/dl HIGH >190 mg/dl VERY HIGH Performed By: #### C BC #### [facility] [address] [place] [address] Dr. Brea Causey Triglyceride [Mass/Vol] 80 mg/dL Normal <=150 [facility] Comment on above: Performed By: #### C BC #### [facility] [address] [address] [address] Brea Causey VLDL CALC 16.0 mg/dL Normal [facility] Comment on above: Performed By: #### C BC #### [facility] [address] [place] [address] Dr. Brea Causey MAGNESIUMon 02-01-2022 Magnesium [Mass/Vol] 1.5 mg/dL Critically low 1.8-2.4 [facility] Comment on above: Performed By: #### C BC #### [facility] [address] [place] [address] Dr. Brea Causey PHOSPHORUSon 02-01-2022 Phosphate [Mass/Vol] 4.1 mg/dL Normal 2.6-4.7 [facility] Comment on above: Performed By: #### C BC #### [facility] [address] [place] [address] Dr. Brea Causey PROF 14(COMP METB)on 022 Albumin [Mass/Vol] 4.0 g/dL Normal 3.4-5.0 [facility] [place] [facility] Comment on above: Performed By: #### C BC #### [facility] [address] [place] [address] Dr. Brea Causey Albumin/Globulin [Mass ratio] 1.3 {ratio} Normal [facility] Comment on above: Performed By: #### C BC #### [facility] [address] [address] [address] Brea Causey ALP [Catalytic activity/Vol] 162 U/L Critically high 46-116 [facility] Comment on above: Performed By: #### C BC #### [facility] [address] [place] [address] Dr. Brea Causey ALT [Catalytic activity/Vol] 25 U/L Normal 16-63 [facility] Comment on above: Performed By: #### C BC #### [facility] [address] [place] [address] Dr. Brea Causey Anion gap [Moles/Vol] 11.1 mmol/L Normal [facility] Comment on above: Performed By: #### C BC #### [facility] [address] [place] [address] Dr. Brea Causey AST [Catalytic activity/Vol] 16 U/L Normal 15-37 [facility] Comment on above: Performed By: #### C BC #### [facility] [address] [place] [address] Dr. Brea Causey Bilirubin [Mass/Vol] 0.4 mg/dL Normal 0.2-1.0 [facility] Comment on above: Performed By: #### C BC #### [facility] [address] [place] [address] Dr. Brea Causey Calcium [Mass/Vol] 8.2 mg/dL Critically low 8.5-10.1 [facility] Comment on above: Performed By: #### C BC #### [facility] [address] [place] [address] Dr. Brea Causey Chloride [Moles/Vol] 99 mmol/L Normal 98-107 [facility] Comment on above: Performed By: #### C BC #### [facility] [address] [place] [address] Dr. Brea Causey CO2 [Moles/Vol] 28.1 mmol/L Normal 21.0-32.0 [facility] Comment on above: Performed By: #### C BC #### [facility] [address] [place] [address] Dr. Brea Causey Creatinine [Mass/Vol] 1.13 mg/dL Normal 0.70-1.30 [facility] Comment on above: Performed By: #### C BC #### [facility] [address] [address] [address] Brea Causey EGFR-AF SALVADOREAN >60 Normal >=60 [facility] Comment on above: Performed By: #### C BC #### [facility] [address] [address] [address] Brea Causey EGFR-NON AF SALVADOREAN >60 Normal >=60 [facility] Comment on above: Performed By: #### C BC #### [facility] [address] [address] [address] Brea Causey Globulin (S) [Mass/Vol] 3.1 g/dL Normal [facility] Comment on above: Performed By: #### C BC #### [facility] [address] [place] [address] Dr. Brea Causey Glucose [Mass/Vol] 177 mg/dL Critically high 74-106 [facility] Comment on above: Performed By: #### C BC #### [facility] [address] [address] [address] Brea Causey Potassium [Moles/Vol] 5.2 mmol/L Critically high 3.5-5.1 [facility] Comment on above: Performed By: #### C BC #### [facility] [address] [place] [address] Dr. Brea Causey Protein [Mass/Vol] 7.1 g/dL Normal 6.4-8.2 [facility] [place] [facility] Comment on above: Performed By: #### C BC #### [facility] [address] [place] [address] Dr. Brea Causey Sodium [Moles/Vol] 133 mmol/L Critically low 136-145 Th e [facility] Comment on above: Performed By: #### C BC #### [facility] [address] [place] [address] Dr. Brea Causey Urea nitrogen [Mass/Vol] 12.0 mg/dL Normal 7.0-18.0 [facility] Comment on above: Performed By: #### C BC #### [facility] [address] [place] [address] Dr. Brea Causey Urea nitrogen/Creatinine [Mass ratio] 10.6 mg/mg Normal [facility] Comment on above: Performed By: #### C BC #### [facility] [address] [place] [address] Dr. Brea Causey URIC ACID SERUMon 02-01-2022 Urate [Mass/Vol] 7.7 mg/dL Critically high 3.5-7.2 [facility] Comment on above: Performed By: #### C BC #### [facility] [address] [place] [address] Dr. Brea Causey FK506 (TACROLIMUS) WHOLE BLO ODon 01-06-2022 Tacrolimus (FK506), Blood 11.4 ng/mL Normal 2.0-20.0 [facility] Comment on above: Result Comment: Trou gh (immediately following transplant) 15.0 . Trough (steady state, 2 weeks or more after transplant): 3.0 - 8.0 . Performed by LC-MS/MS technology. Performed By: #### B KVIRUS #### [facility] [address] [place] [address] Dr. Brea Causey BILIRUBIN CONJUGATED (DIRECT )on 01-04-2022 BILI, CONJUGATED 0.1 mg/dL Normal 0.0-0.2 [facility] Comment on above: Performed By: #### U CLINT, CMP, LIPID, DBIL, PHOS, MG #### [facility] [address] [place] [address] Dr. Brea Causey BOX TEST SENT OUTon 01-05-20 22 SENT TO REF LAB 01/04/2022 Normal [facility] Comment on above: Performed By: #### U CLINT, CMP, LIPID, DBIL, PHOS, MG #### [facility] [address] [place] [address] Dr. Brea Causey CBC AUTO DIFFon 01-04-2022 BASO # 0.0 103/ul Normal 0.0-0.1 [facility] Comment on above: Performed By: #### U CLINT, CMP, LIPID, DBIL, PHOS, MG #### [facility] [address] [place] [address] Dr. Brea Causey Basophils/100 WBC (Bld) 0.5 % Normal 0.2-2.0 The [facility] Comment on above: Performed By: #### U CLINT, CMP, LIPID, DBIL, PHOS, MG #### [facility] [address] [place] [address] Dr. Brea Causey EO # 0.3 103/ul Normal 0.0-0.7 The [facility] Comment on above: Performed By: #### U CLINT, CMP, LIPID, DBIL, PHOS, MG #### [facility] [address] [place] [address] Dr. Brea Causey Eosinophils/100 WBC (Bld) 3.9 % Normal 0.9-7.0 The [facility] Comment on above: Performed By: #### U CLINT, CMP, LIPID, DBIL, PHOS, MG #### [facility] [address] [place] [address] Dr. Brea Causey Erythrocyte distribution width (RBC) [Ratio] 13.1 % Normal 11.0-15.0 The [facility] Comment on above: Performed By: #### U CLINT, CMP, LIPID, DBIL, PHOS, MG #### [facility] [address] [place] [address] Dr. Brea Causey Hematocrit (Bld) [Volume fraction] 37.4 % Critically low 42.0-54.0 [facility] Comment on above: Performed By: #### U CLINT, CMP, LIPID, DBIL, PHOS, MG #### [facility] [address] [place] [address] Dr. Brea Causey Hemoglobin (Bld) [Mass/Vol] 12.0 g/dL Critically low 14.0-18.0 [facility] Comment on above: Performed By: #### U CLINT, CMP, LIPID, DBIL, PHOS, MG #### [facility] [address] [address] [address] Brea Causey IG # 0.07 10e3/ul Critically high 0.00-0.03 [facility] Comment on above: Performed By: #### U CLINT, CMP, LIPID, DBIL, PHOS, MG #### [facility] [address] [place] [address] Dr. Brea Causey IG % 1.1 % Critically high 0.0-0.5 The [facility] Comment on above: Performed By: #### U CLINT, CMP, LIPID, DBIL, PHOS, MG #### [facility] [address] [place] [address] Dr. Brea Causey LYMPH # 0.8 103/ul Critically low 1.2-3.8 The [facility] Comment on above: Performed By: #### U CLINT, CMP, LIPID, DBIL, PHOS, MG #### [facility] [address] [place] [address] Dr. Brea Causey Lymphocytes/100 WBC (Bld) 12.2 % Critically low 20.5-60.0 [facility] Comment on above: Performed By: #### U CLINT, CMP, LIPID, DBIL, PHOS, MG #### [facility] [address] [place] [address] Dr. Brea Cuasey MANUAL DIFF REQ NO Normal [facility] Comment on above: Performed By: #### U CLINT, CMP, LIPID, DBIL, PHOS, MG #### [facility] [address] [address] [address] Brea Causey MCH (RBC) [Entitic mass] 29.1 pg Normal 25.9-34.0 [facility] Comment on above: Performed By: #### U CLINT, CMP, LIPID, DBIL, PHOS, MG #### [facility] [address] [place] [address] Dr. Brea Causey MCHC (RBC) [Mass/Vol] 32.1 g/dL Normal 29.9-35.2 The [facility] Comment on above: Performed By: #### U CLINT, CMP, LIPID, DBIL, PHOS, MG #### [facility] [address] [place] [address] Dr. Brea Causey MCV (RBC) [Entitic vol] 90.6 fL Normal 80.0-94.0 The [facility] Comment on above: Performed By: #### U CLINT, CMP, LIPID, DBIL, PHOS, MG #### [facility] [address] [place] [address] Dr. Brea Causey MONO # 0.5 103/ul Normal 0.3-0.8 The [facility] Comment on above: Performed By: #### U CLINT, CMP, LIPID, DBIL, PHOS, MG #### [facility] [address] [place] [address] Dr. Brea Causey Monocytes/100 WBC (Bld) 8.0 % Normal 1.7-12.0 The [facility] Comment on above: Performed By: #### U CLINT, CMP, LIPID, DBIL, PHOS, MG #### [facility] [address] [place] [address] Dr. Brea Causey NEUT # 5.0 103/ul Normal 1.4-6.5 The [facility] Comment on above: Performed By: #### U CLINT, CMP, LIPID, DBIL, PHOS, MG #### [facility] [address] [place] [address] Dr. Brea Causey Neutrophils/100 WBC (Bld) 74.3 % Normal 43.0-75.0 The [facility] Comment on above: Performed By: #### U CLINT, CMP, LIPID, DBIL, PHOS, MG #### [facility] [address] [place] [address] Dr. Brea Causey Platelet mean volume (Bld) [Entitic vol] 9.5 fL Normal 9.5-13.5 The [facility] Comment on above: Performed By: #### U CLINT, CMP, LIPID, DBIL, PHOS, MG #### [facility] [address] [place], [place] [address] Dr. Brea Causey PLT 243 103/ul Normal 150-450 [facility] Comment on above: Performed By: #### U CLINT, CMP, LIPID, DBIL, PHOS, MG #### [facility] [address] [address] [address] Brea Causey RBC 4.13 106/ul Critically low 4.70-6.10 [facility] Comment on above: Performed By: #### U CLINT, CMP, LIPID, DBIL, PHOS, MG #### [facility] [address] [place], [place] [address] Dr. Brea Causey WBC 6.7 103/ul Normal 4.0-11.0 [facility] Comment on above: Performed By: #### U CLINT, CMP, LIPID, DBIL, PHOS, MG #### [facility] [address] [address] [address] Brea Causey LIPID PROFILEon 01-04-2022 CHOL-HDL RATIO NORM SEE BELOW Normal [facility] Comment on above: Result Comment: 3.3 - 4.4 LOW RISK 4.4 - 7.1 AVERAGE RISK 7.1 - 11.0 MODERATE RISK >11.0 HIGH RISK Performed By: #### U CLINT, CMP, LIPID, DBIL, PHOS, MG #### [facility] [address] [address] [address] Brea Causey Cholesterol [Mass/Vol] 81 mg/dL Normal <=200 [facility] Comment on above: Performed By: #### U CLINT, CMP, LIPID, DBIL, PHOS, MG #### [facility] [address] [address] [address] Brea Causey Cholesterol in HDL [Mass/Vol] 43 mg/dL Normal 40-60 [facility] Comment on above: Performed By: #### U CLINT, CMP, LIPID, DBIL, PHOS, MG #### [facility] [address] [address] [address] Brea Causey Cholesterol in LDL [Mass/Vol] 26.0 mg/dL Normal [facility] Comment on above: Performed By: #### U CLINT, CMP, LIPID, DBIL, PHOS, MG #### [facility] [address] [address] [address] Brea Causey Cholesterol.total/Cho lesterol in HDL [Mass ratio] 1.9 {ratio} Normal The [facility] Comment on above: Performed By: #### U CLINT, CMP, LIPID, DBIL, PHOS, MG #### [facility] [address] [address] [address] Brea Causey HDL NORMAL > or = 60 mg/dl - LO W CARDIOVASCULAR RISK <40 mg/dl - HIGH CARDIOVASCULAR RISK Normal [facility] Comment on above: Performed By: #### U CLINT, CMP, LIPID, DBIL, PHOS, MG #### [facility] [address] [address] [address] Brea Causey LDL CALC NORMAL SEE BELOW Normal [facility] Comment on above: Result Comment: <100 mg/dl OPTIMAL 100 - 129 mg/dl NEAR OR ABOVE OPTIMAL 130 - 159 mg/dl BORDERLINE HIGH 160 - 189 mg/dl HIGH >190 mg/dl VERY HIGH Performed By: #### U CLINT, CMP, LIPID, DBIL, PHOS, MG #### [facility] [address] [address] [address] Brea Causey Triglyceride [Mass/Vol] 60 mg/dL Normal <=150 The [facility] Comment on above: Performed By: #### U CLINT, CMP, LIPID, DBIL, PHOS, MG #### [facility] [address] [address] [address] Brea Causey VLDL CALC 12.0 mg/dL Normal The [facility] Comment on above: Performed By: #### U CLINT, CMP, LIPID, DBIL, PHOS, MG #### [facility] [address] [address] [address] Brea Causey MAGNESIUMon 01-04-2022 Magnesium [Mass/Vol] 1.4 mg/dL Critically low 1.8-2.4 [facility] Comment on above: Performed By: #### U CLINT, CMP, LIPID, DBIL, PHOS, MG #### [facility] [address] [place] [address] Dr. Brea Causey PHOSPHORUSon 01-04-2022 Phosphate [Mass/Vol] 4.4 mg/dL Normal 2.6-4.7 [facility] Comment on above: Performed By: #### U CLINT, CMP, LIPID, DBIL, PHOS, MG #### [facility] [address] [address] [address] Brea Causey PROF 14(COMP METB)on 022 Albumin [Mass/Vol] 3.9 g/dL Normal 3.4-5.0 [facility] [place] [facility] Comment on above: Performed By: #### U CLINT, CMP, LIPID, DBIL, PHOS, MG #### [facility] [address] [place] [address] Dr. Brea Causey Albumin/Globulin [Mass ratio] 1.2 {ratio} Normal [facility] Comment on above: Performed By: #### U CLINT, CMP, LIPID, DBIL, PHOS, MG #### [facility] [address] [place] [address] Dr. Brea Causey ALP [Catalytic activity/Vol] 155 U/L Critically high 46-116 [facility] Comment on above: Performed By: #### U CLINT, CMP, LIPID, DBIL, PHOS, MG #### [facility] [address] [place] [address] Dr. Brea Causey ALT [Catalytic activity/Vol] 27 U/L Normal 16-63 [facility] Comment on above: Performed By: #### U CLINT, CMP, LIPID, DBIL, PHOS, MG #### [facility] [address] [place] [address] Dr. Brea Causey Anion gap [Moles/Vol] 14.6 mmol/L Normal [facility] Comment on above: Performed By: #### U CLINT, CMP, LIPID, DBIL, PHOS, MG #### [facility] [address] [place] [address] Dr. Brea Causey AST [Catalytic activity/Vol] 17 U/L Normal 15-37 [facility] Comment on above: Performed By: #### U CLINT, CMP, LIPID, DBIL, PHOS, MG #### [facility] [address] [address] [address] Brea Causey Bilirubin [Mass/Vol] 0.3 mg/dL Normal 0.2-1.0 [facility] Comment on above: Performed By: #### U CLINT, CMP, LIPID, DBIL, PHOS, MG #### [facility] [address] [address] [address] Brea Causey Calcium [Mass/Vol] 8.1 mg/dL Critically low 8.5-10.1 Th e [facility] Comment on above: Performed By: #### U CLINT, CMP, LIPID, DBIL, PHOS, MG #### [facility] [address] [address] [address] Brea Causey Chloride [Moles/Vol] 99 mmol/L Normal 98-107 [facility] Comment on above: Performed By: #### U CLINT, CMP, LIPID, DBIL, PHOS, MG #### [facility] [address] [address] [address] Brea Causey CO2 [Moles/Vol] 25.0 mmol/L Normal 21.0-32.0 [facility] Comment on above: Performed By: #### U CLINT, CMP, LIPID, DBIL, PHOS, MG #### [facility] [address] [address] [address] Brea Causey Creatinine [Mass/Vol] 1.05 mg/dL Normal 0.70-1.30 The [facility] Comment on above: Performed By: #### U CLINT, CMP, LIPID, DBIL, PHOS, MG #### [facility] [address] [address] [address] Brea Causey EGFR-AF SALVADOREAN >60 Normal >=60 The [facility] Comment on above: Performed By: #### U CLINT, CMP, LIPID, DBIL, PHOS, MG #### [facility] [address] [address] [address] Brea Causey EGFR-NON AF SALVADOREAN >60 Normal >=60 [facility] Comment on above: Performed By: #### U CLINT, CMP, LIPID, DBIL, PHOS, MG #### [facility] [address] [place] [address] Dr. Brea Causey Globulin (S) [Mass/Vol] 3.2 g/dL Normal [facility] Comment on above: Performed By: #### U CLINT, CMP, LIPID, DBIL, PHOS, MG #### [facility] [address] [place] [address] Dr. Brea Causey Glucose [Mass/Vol] 177 mg/dL Critically high 74-106 [facility] Comment on above: Performed By: #### U CLINT, CMP, LIPID, DBIL, PHOS, MG #### [facility] [address] [place] [address] Dr. Brea Causey Potassium [Moles/Vol] 4.6 mmol/L Normal 3.5-5.1 [facility] Comment on above: Performed By: #### U CLINT, CMP, LIPID, DBIL, PHOS, MG #### [facility] [address] [place] [address] Dr. Brea Causey Protein [Mass/Vol] 7.1 g/dL Normal 6.4-8.2 [facility] Comment on above: Performed By: #### U CLINT, CMP, LIPID, DBIL, PHOS, MG #### [facility] [address] [place] [address] Dr. Brea Causey Sodium [Moles/Vol] 134 mmol/L Critically low 136-145 [facility] Comment on above: Performed By: #### U CLINT, CMP, LIPID, DBIL, PHOS, MG #### [facility] [address] [place] [address] Dr. Brea Causey Urea nitrogen [Mass/Vol] 14.0 mg/dL Normal 7.0-18.0 [facility] Comment on above: Performed By: #### U CLINT, CMP, LIPID, DBIL, PHOS, MG #### [facility] [address] [place] [address] Dr. Brea Causey Urea nitrogen/Creatinine [Mass ratio] 13.3 mg/mg Normal The [facility] Comment on above: Performed By: #### U CLINT, CMP, LIPID, DBIL, PHOS, MG #### [facility] [address] [place] [address] Dr. Brea Causey URIC ACID SERUMon 01-04-2022 Urate [Mass/Vol] 7.6 mg/dL Critically high 3.5-7.2 The [facility] Comment on above: Performed By: #### U CLINT, CMP, LIPID, DBIL, PHOS, MG #### [facility] [address] [address] [address] Brea Causey BK VIRUS PCR QUANTon 022 BKV DNA QUANT PCR PLASMA Negative Normal Negative The [facility] Comment on above: Result Comment: No B K DNA detected. . The linear range of the assay is 22 - 100,000,000 IU/mL. Performed By: #### B KVIRUS #### [facility] [address] [place] [address] Dr. Brea Causey Log10 BKV DNA Plasma Normal [facility] Comment on above: Performed By: #### B KVIRUS #### [facility] [address] [place] [address] Dr. Brea Causey FK506 (TACROLIMUS) WHOLE BLO ODon 12-03-2021 Tacrolimus (FK506), Blood 5.6 ng/mL Normal 2.0-20.0 [facility] Comment on above: Result Comment: Trou gh (immediately following transplant) 15.0 . Trough (steady state, 2 weeks or more after transplant): 3.0 - 8.0 . Performed by LC-MS/MS technology. Performed By: #### U CLINT, CMP, LIPID, DBIL, PHOS, MG #### [facility] [address] [place] [address] Dr. Brea Causey TESTOSTERONE, FREE,DIRECT, T OTALon 12-03-2021 Free Testosterone(Direct) 7.5 pg/mL Normal 6.6-18.1 The [facility] Comment on above: Result Comment: Perf ormed at: BN Performed By: #### U CLINT, CMP, LIPID, DBIL, PHOS, MG #### [facility] [address] [place] [address] Dr. Brea Causey Testosterone [Mass/Vol] 467 ng/dL Normal 264-916 The [facility] Comment on above: Result Comment: Adul t male reference interval is based on a population of healthy nonobese males (BMI <30) between 19 and 39 years old. Steven et.al. JCEM 2017,102;5266-5822. PMID: [id number]. Performed at: CB Performed By: #### U CLINT, CMP, LIPID, DBIL, PHOS, MG #### [facility] [address] [place] [address] Dr. Brea Causey BILIRUBIN CONJUGATED (DIRECT )on 11-30-2021 BILI, CONJUGATED 0.2 mg/dL Normal 0.0-0.2 [facility] Comment on above: Performed By: #### B KVIRUS #### [facility] [address] [place] [address] Dr. Brea Causey CBC AUTO DIFFon 11-30-2021 BASO # 0.0 103/ul Normal 0.0-0.1 [facility] Comment on above: Performed By: #### U CLINT, CMP, LIPID, DBIL, PHOS, MG #### [facility] [address] [place] [address] Dr. Brea Causey Basophils/100 WBC (Bld) 0.6 % Normal 0.2-2.0 The [facility] Comment on above: Performed By: #### U CLINT, CMP, LIPID, DBIL, PHOS, MG #### [facility] [address] [place] [address] Dr. Brea Causey EO # 0.2 103/ul Normal 0.0-0.7 The [facility] Comment on above: Performed By: #### U CLINT, CMP, LIPID, DBIL, PHOS, MG #### [facility] [address] [place] [address] Dr. Brea Causey Eosinophils/100 WBC (Bld) 2.7 % Normal 0.9-7.0 The [facility] Comment on above: Performed By: #### U CLINT, CMP, LIPID, DBIL, PHOS, MG #### [facility] [address] [address] [address] Brea Causey Erythrocyte distribution width (RBC) [Ratio] 13.0 % Normal 11.0-15.0 [facility] Comment on above: Performed By: #### U CLINT, CMP, LIPID, DBIL, PHOS, MG #### [facility] [address] [address] [address] Brea Causey Hematocrit (Bld) [Volume fraction] 37.6 % Critically low 42.0-54.0 [facility] Comment on above: Performed By: #### U CLINT, CMP, LIPID, DBIL, PHOS, MG #### [facility] [address] [place] [address] Dr. Brea Causey Hemoglobin (Bld) [Mass/Vol] 12.4 g/dL Critically low 14.0-18.0 [facility] Comment on above: Performed By: #### U CLINT, CMP, LIPID, DBIL, PHOS, MG #### [facility] [address] [address] [address] Brea Causey IG # 0.06 10e3/ul Critically high 0.00-0.03 [facility] Comment on above: Performed By: #### U CLINT, CMP, LIPID, DBIL, PHOS, MG #### [facility] [address] [place] [address] Dr. Brea Causey IG % 0.9 % Critically high 0.0-0.5 The [facility] Comment on above: Performed By: #### U CLINT, CMP, LIPID, DBIL, PHOS, MG #### [facility] [address] [place] [address] Dr. Brea Causey LYMPH # 1.0 103/ul Critically low 1.2-3.8 The [facility] Comment on above: Performed By: #### U CLINT, CMP, LIPID, DBIL, PHOS, MG #### [facility] [address] [place] [address] Dr. Brea Causey Lymphocytes/100 WBC (Bld) 14.6 % Critically low 20.5-60.0 [facility] Comment on above: Performed By: #### U CLINT, CMP, LIPID, DBIL, PHOS, MG #### [facility] [address] [place] [address] Dr. Brea Causey MANUAL DIFF REQ NO Normal [facility] Comment on above: Performed By: #### U CLINT, CMP, LIPID, DBIL, PHOS, MG #### [facility] [address] [place] [address] Dr. Brea Causey MCH (RBC) [Entitic mass] 29.4 pg Normal 25.9-34.0 The [facility] Comment on above: Performed By: #### U CLINT, CMP, LIPID, DBIL, PHOS, MG #### [facility] [address] [place] [address] Dr. Brea Causey MCHC (RBC) [Mass/Vol] 33.0 g/dL Normal 29.9-35.2 The [facility] Comment on above: Performed By: #### U CLINT, CMP, LIPID, DBIL, PHOS, MG #### [facility] [address] [place] [address] Dr. Brea Causey MCV (RBC) [Entitic vol] 89.1 fL Normal 80.0-94.0 [facility] Comment on above: Performed By: #### U CLINT, CMP, LIPID, DBIL, PHOS, MG #### [facility] [address] [place] [address] Dr. Brea Causey MONO # 0.7 103/ul Normal 0.3-0.8 The [facility] Comment on above: Performed By: #### U CLINT, CMP, LIPID, DBIL, PHOS, MG #### [facility] [address] [place] [address] Dr. Brea Causey Monocytes/100 WBC (Bld) 10.0 % Normal 1.7-12.0 [facility] Comment on above: Performed By: #### U CLINT, CMP, LIPID, DBIL, PHOS, MG #### [facility] [address] [place] [address] Dr. Brea Causey NEUT # 4.8 103/ul Normal 1.4-6.5 [facility] Comment on above: Performed By: #### U CLINT, CMP, LIPID, DBIL, PHOS, MG #### [facility] [address] [address] [address] Brea Causey Neutrophils/100 WBC (Bld) 71.2 % Normal 43.0-75.0 [facility] Comment on above: Performed By: #### U CLINT, CMP, LIPID, DBIL, PHOS, MG #### [facility] [address] [address] [address] Brea Causey Platelet mean volume (Bld) [Entitic vol] 9.0 fL Critically low 9.5-13.5 [facility] Comment on above: Performed By: #### U CLINT, CMP, LIPID, DBIL, PHOS, MG #### [facility] [address] [place] [address] Dr. Brea Causey PLT 280 103/ul Normal 150-450 [facility] Comment on above: Performed By: #### U CLINT, CMP, LIPID, DBIL, PHOS, MG #### [facility] [address] [address] [address] Brea Causey RBC 4.22 106/ul Critically low 4.70-6.10 The [facility] Comment on above: Performed By: #### U CLINT, CMP, LIPID, DBIL, PHOS, MG #### [facility] [address] [address] [address] Brea Causey WBC 6.7 103/ul Normal 4.0-11.0 [facility] Comment on above: Performed By: #### U CLINT, CMP, LIPID, DBIL, PHOS, MG #### [facility] [address] [place] [address] Dr. Brea Causey GLYCOHEMOGLOBIN A1Con 2021 ADA RECOMMENDATION SEE BELOW Normal The [facility] Comment on above: Result Comment: ADA RECOMMENDED LIMIT 4.0 - 6.0 ADA THERAPEUTIC TARGET < 7.0 ACTION SUGGESTED > 7.0 Performed By: #### B KVIRUS #### [facility] [address] [address] [address] Brea Causey Glucose [Mass/Vol] 171 mg/dL Normal [facility] Comment on above: Performed By: #### B KVIRUS #### [facility] [address] [address] [address] Brea Causey HbA1c (Bld) [Mass fraction] 7.6 % Critically high 4.5-6.2 [facility] Comment on above: Performed By: #### B KVIRUS #### [facility] [address] [address] [address] Brea Causey LIPID PROFILEon 11-30-2021 CHOL-HDL RATIO NORM SEE BELOW [facility] Comment on above: Result Comment: 3.3 - 4.4 LOW RISK 4.4 - 7.1 AVERAGE RISK 7.1 - 11.0 MODERATE RISK >11.0 HIGH RISK Performed By: #### C BC #### [facility] [address] [place] [address] Dr. Brea Causey Cholesterol [Mass/Vol] 75 mg/dL Normal <=200 [facility] Comment on above: Performed By: #### C BC #### [facility] [address] [place] [address] Dr. Brea Causey Cholesterol in HDL [Mass/Vol] 41 mg/dL Normal 40-60 [facility] Comment on above: Performed By: #### C BC #### [facility] [address] [address] [address] Brea Causey Cholesterol in LDL [Mass/Vol] 18.6 mg/dL Normal [facility] Comment on above: Performed By: #### C BC #### [facility] [address] [address] [address] Brea Causey Cholesterol.total/Cho lesterol in HDL [Mass ratio] 1.8 {ratio} Normal [facility] Comment on above: Performed By: #### C BC #### [facility] [address] [place] [address] Dr. Brea Causey HDL NORMAL > or = 60 mg/dl - LO W CARDIOVASCULAR RISK <40 mg/dl - HIGH CARDIOVASCULAR RISK Normal [facility] Comment on above: Performed By: #### C BC #### [facility] [address] [place] [address] Dr. Brea Causey LDL CALC NORMAL SEE BELOW Normal [facility] Comment on above: Result Comment: <100 mg/dl OPTIMAL 100 - 129 mg/dl NEAR OR ABOVE OPTIMAL 130 - 159 mg/dl BORDERLINE HIGH 160 - 189 mg/dl HIGH >190 mg/dl VERY HIGH Performed By: #### C BC #### [facility] [address] [place] [address] Dr. Brea Causey Triglyceride [Mass/Vol] 77 mg/dL Normal <=150 The [facility] Comment on above: Performed By: #### C BC #### [facility] [address] [place] [address] Dr. Brea Causey VLDL CALC 15.4 mg/dL Normal [facility] Comment on above: Performed By: #### C BC #### [facility] [address] [place] [address] Dr. Brea Causey MAGNESIUMon 11-30-2021 Magnesium [Mass/Vol] 1.4 mg/dL Critically low 1.8-2.4 [facility] Comment on above: Performed By: #### B KVIRUS #### [facility] [address] [place] [address] Dr. Brea Causey PHOSPHORUSon 11-30-2021 Phosphate [Mass/Vol] 4.1 mg/dL Normal 2.6-4.7 [facility] Comment on above: Performed By: #### C BC #### [facility] [address] [place] [address] Dr. Brea Causey PROF 14(COMP METB)on 022 Albumin [Mass/Vol] 4.2 g/dL Normal 3.4-5.0 [facility] Comment on above: Performed By: #### C BC #### [facility] [address] [place] [address] Dr. Brea Causey Albumin/Globulin [Mass ratio] 1.3 {ratio} Normal [facility] Comment on above: Performed By: #### C BC #### [facility] [address] [place] [address] Dr. Brea Causey ALP [Catalytic activity/Vol] 148 U/L Critically high 46-116 [facility] Comment on above: Performed By: #### C BC #### [facility] [address] [place] [address] Dr. Brea Causey ALT [Catalytic activity/Vol] 36 U/L Normal 16-63 [facility] Comment on above: Performed By: #### C BC #### [facility] [address] [place] [address] Dr. Brea Causey Anion gap [Moles/Vol] 14.7 mmol/L Normal [facility] Comment on above: Performed By: #### C BC #### [facility] [address] [place] [address] Dr. Brea Causey AST [Catalytic activity/Vol] 21 U/L Normal 15-37 [facility] Comment on above: Performed By: #### C BC #### [facility] [address] [place] [address] Dr. Brea Causey Bilirubin [Mass/Vol] 0.4 mg/dL Normal 0.2-1.0 [facility] Comment on above: Performed By: #### C BC #### [facility] [address] [place] [address] Dr. Brea Causey Calcium [Mass/Vol] 8.3 mg/dL Critically low 8.5-10.1 [facility] Comment on above: Performed By: #### C BC #### [facility] [address] [place] [address] Dr. Brea Causey Chloride [Moles/Vol] 98 mmol/L Normal 98-107 [facility] Comment on above: Performed By: #### C BC #### [facility] [address] [place] [address] Dr. rBea Causey CO2 [Moles/Vol] 27.2 mmol/L Normal 21.0-32.0 [facility] Comment on above: Performed By: #### C BC #### [facility] [address] [place] [address] Dr. Brea Causey Creatinine [Mass/Vol] 1.10 mg/dL Normal 0.70-1.30 [facility] Comment on above: Performed By: #### C BC #### [facility] [address] [place] [address] Dr. Brea Causey EGFR-AF SALVADOREAN >60 Normal >=60 [facility] Comment on above: Performed By: #### C BC #### [facility] [address] [address] [address] Brea Causey EGFR-NON AF SALVADOREAN >60 Normal >=60 [facility] Comment on above: Performed By: #### C BC #### [facility] [address] [place] [address] Dr. Brea Causey Globulin (S) [Mass/Vol] 3.2 g/dL Normal [facility] Comment on above: Performed By: #### C BC #### [facility] [address] [place] [address] Dr. Brea Causey Glucose [Mass/Vol] 173 mg/dL Critically high 74-106 [facility] Comment on above: Performed By: #### C BC #### [facility] [address] [address] [address] Brea Causey Potassium [Moles/Vol] 4.9 mmol/L Normal 3.5-5.1 [facility] Comment on above: Performed By: #### C BC #### [facility] [address] [place] [address] Dr. Brea Causey Protein [Mass/Vol] 7.4 g/dL Normal 6.4-8.2 [facility] Comment on above: Performed By: #### C BC #### [facility] [address] [address] [address] Brea Causey Sodium [Moles/Vol] 135 mmol/L Critically low 136-145 [facility] Comment on above: Performed By: #### C BC #### [facility] [address] [place] [address] Dr. Brea Causey Urea nitrogen [Mass/Vol] 14.0 mg/dL Normal 7.0-18.0 [facility] Comment on above: Performed By: #### C BC #### [facility] [address] [place] [address] Dr. Brea Causey Urea nitrogen/Creatinine [Mass ratio] 12.7 mg/mg Normal [facility] Comment on above: Performed By: #### C BC #### [facility] [address] [place] [address] Dr. Brea Causey URIC ACID SERUMon 11-30-2021 Urate [Mass/Vol] 7.8 mg/dL Critically high 3.5-7.2 [facility] Comment on above: Performed By: #### C BC #### [facility] [address] [place] [address] Dr. Brea Causey BNPon 11-14-2021 Natriuretic peptide B (Bld) [Mass/Vol] 350.0 pg/mL Normal <=900.0 The [facility] Comment on above: Performed By: #### C BC #### [facility] [address] [place] [address] Dr. Brea Causey CBC AUTO DIFFon 11-14-2021 BASO # 0.0 103/ul Normal 0.0-0.1 [facility] Comment on above: Performed By: #### C BC #### [facility] [address] [place] [address] Dr. Brea Causey Basophils/100 WBC (Bld) 0.1 % Critically low 0.2-2.0 The [facility] Comment on above: Performed By: #### C BC #### [facility] [address] [place] [address] Dr. Brea Causey EO # 0.2 103/ul Normal 0.0-0.7 The [facility] Comment on above: Performed By: #### C BC #### [facility] [address] [place] [address] Dr. Brea Causey Eosinophils/100 WBC (Bld) 1.4 % Normal 0.9-7.0 The [facility] Comment on above: Performed By: #### C BC #### [facility] [address] [place] [address] Dr. Brea Causey Erythrocyte distribution width (RBC) [Ratio] 13.1 % Normal 11.0-15.0 [facility] Comment on above: Performed By: #### C BC #### [facility] [address] [place] [address] Dr. Brea Causey Hematocrit (Bld) [Volume fraction] 39.4 % Critically low 42.0-54.0 [facility] Comment on above: Performed By: #### C BC #### [facility] [address] [place] [address] Dr. Brea Causey Hemoglobin (Bld) [Mass/Vol] 13.2 g/dL Critically low 14.0-18.0 [facility] Comment on above: Performed By: #### C BC #### [facility] [address] [place] [address] Dr. Brea Causey IG # 0.11 10e3/ul Critically high 0.00-0.03 [facility] Comment on above: Performed By: #### C BC #### [facility] [address] [place] [address] Dr. Brea Causey IG % 0.6 % Critically high 0.0-0.5 [facility] Comment on above: Performed By: #### C BC #### [facility] [address] [place] [address] Dr. Brea Causey LYMPH # 1.1 103/ul Critically low 1.2-3.8 [facility] Comment on above: Performed By: #### C BC #### [facility] [address] [place] [address] Dr. Brea Causey Lymphocytes/100 WBC (Bld) 6.7 % Critically low 20.5-60.0 [facility] Comment on above: Performed By: #### C BC #### [facility] [address] [place] [address] Dr. Brea Causey MANUAL DIFF REQ NO Normal [facility] Comment on above: Performed By: #### C BC #### [facility] [address] [place] [address] Dr. Brea Causey MCH (RBC) [Entitic mass] 29.5 pg Normal 25.9-34.0 [facility] Comment on above: Performed By: #### C BC #### [facility] [address] [address] [address] Brea Causey MCHC (RBC) [Mass/Vol] 33.5 g/dL Normal 29.9-35.2 The [facility] Comment on above: Performed By: #### C BC #### [facility] [address] [address] [address] Brea Causey MCV (RBC) [Entitic vol] 88.1 fL Normal 80.0-94.0 The [facility] Comment on above: Performed By: #### C BC #### [facility] [address] [place] [address] Dr. Brea Causey MONO # 1.5 103/ul Critically high 0.3-0.8 The [facility] Comment on above: Performed By: #### C BC #### [facility] [address] [place] [address] Dr. Brea Causey Monocytes/100 WBC (Bld) 8.6 % Normal 1.7-12.0 The [facility] Comment on above: Performed By: #### C BC #### [facility] [address] [place] [address] Dr. Brea Causey NEUT # 14.0 103/ul Critically high 1.4-6.5 The [facility] Comment on above: Performed By: #### C BC #### [facility] [address] [place] [address] Dr. Brea Causey Neutrophils/100 WBC (Bld) 82.6 % Critically high 43.0-75.0 The [facility] Comment on above: Performed By: #### C BC #### [facility] [address] [place] [address] Dr. Brea Causey Platelet mean volume (Bld) [Entitic vol] 9.5 fL Normal 9.5-13.5 The [facility] Comment on above: Performed By: #### C BC #### [facility] [address] [place] [address] Dr. Brea Causey PLT 303 103/ul Normal 150-450 The [facility] Comment on above: Performed By: #### C BC #### [facility] [address] [place] [address] Dr. Brea Causey RBC 4.47 106/ul Critically low 4.70-6.10 The [facility] Comment on above: Performed By: #### C BC #### [facility] [address] [place] [address] Dr. Brea Causey WBC 17.0 103/ul Critically high 4.0-11.0 The [facility] Comment on above: Performed By: #### C BC #### [facility] [address] [place] [address] Dr. Brea Causey Covid-19 PCR ([facility])on SARS-CoV-2 (COVID-19) RNA ISI+probe Ql (Unsp spec) Not detected Normal NOT DETECTED The [facility] Comment on above: Result Comment: When diagnostic [...] for this test is supported by the [place] of Health and Human Service's declaration that [...] LIPID, DBIL, PHOS, MG #### [facility] [address] [place] [address] Dr. Brea Causey ER URINE PROFILEon 2 Bilirubin Ql (U) Negative Normal NEGATIVE The [facility] Comment on above: Performed By: #### U CLINT, CMP, LIPID, DBIL, PHOS, MG #### [facility] [address] [address] [address] Brea Causey Clarity (U) CLEAR Normal CLEAR [facility] Comment on above: Performed By: #### U CLINT, CMP, LIPID, DBIL, PHOS, MG #### [facility] [address] [address] [address] Brea Causey Color (U) YELLOW Normal YELLOW [facility] Comment on above: Performed By: #### U CLINT, CMP, LIPID, DBIL, PHOS, MG #### [facility] [address] [address] [address] Brea GORDON A micrscopic examination will be performed if indicated. Normal [facility] Comment on above: Performed By: #### U CLINT, CMP, LIPID, DBIL, PHOS, MG #### [facility] [address] [place] [address] Dr. Brea Causey Glucose Ql (U) Negative Normal NEGATIVE [facility] Comment on above: Performed By: #### U CLINT, CMP, LIPID, DBIL, PHOS, MG #### [facility] [address] [place] [address] Dr. Brea Causey Hemoglobin Ql (U) Negative Normal NEGATIVE [facility] Comment on above: Performed By: #### U CLINT, CMP, LIPID, DBIL, PHOS, MG #### [facility] [address] [place] [address] Dr. Brea Causey Ketones Ql (U) Negative Normal NEGATIVE [facility] Comment on above: Performed By: #### U CLINT, CMP, LIPID, DBIL, PHOS, MG #### [facility] [address] [address] [address] Brea Causey LEUKOCYTES Negative Normal NEGATIVE [facility] Comment on above: Performed By: #### U CLINT, CMP, LIPID, DBIL, PHOS, MG #### [facility] [address] [address] [address] Brea Causey Nitrite Ql (U) Negative Normal NEGATIVE The [facility] Comment on above: Performed By: #### U CLINT, CMP, LIPID, DBIL, PHOS, MG #### [facility] [address] [place] [address] Dr. Brea Causey pH (U) 6.0 [pH] Normal 5-9 [facility] Comment on above: Performed By: #### U CLINT, CMP, LIPID, DBIL, PHOS, MG #### [facility] [address] [place] [address] Dr. Brea Causey SPEC GRAVITY <=1.005 Abnormal 1.005-<=1.025 [facility] Comment on above: Performed By: #### U CLINT, CMP, LIPID, DBIL, PHOS, MG #### [facility] [address] [place] [address] Dr. Brea Causey UA PROTEIN Negative Normal NEGATIVE/ TRACE [facility] Comment on above: Performed By: #### U CLINT, CMP, LIPID, DBIL, PHOS, MG #### [facility] [address] [place] [address] Dr. Brea Causey UR MICRO IND NOT INDICATED Normal The [facility] Comment on above: Performed By: #### U CLINT, CMP, LIPID, DBIL, PHOS, MG #### [facility] [address] [place] [address] Dr. Brea Causey Urobilinogen Qn (U) 0.2 {Sabine'U}/dL Normal 0.2 - 1. 0 [facility] Comment on above: Performed By: #### U CLINT, CMP, LIPID, DBIL, PHOS, MG #### [facility] [address] [place] [address] Dr. Brea Causey GI PANEL (PCR)on 11-14-2021 Adenovirus F 40/41 Not detected Normal NOT DETECTED [facility] Comment on above: Performed By: #### U CLINT, CMP, LIPID, DBIL, PHOS, MG #### [facility] [address] [place] [address] Dr. Brea Causey Astrovirus Not detected Normal NOT DETECTED The [facility] Comment on above: Performed By: #### U CLINT, CMP, LIPID, DBIL, PHOS, MG #### [facility] [address] [address] [address] Brea Causey C. Diff toxin A/B Not detected Normal NOT DETECTED The [facility] Comment on above: Performed By: #### U CLINT, CMP, LIPID, DBIL, PHOS, MG #### [facility] [address] [address] [address] Brea Causey Campylobacter Not detected Normal NOT DETECTED The [facility] Comment on above: Performed By: #### U CLINT, CMP, LIPID, DBIL, PHOS, MG #### [facility] [address] [place] [address] Dr. Brea Causey Cryptosporidium Not detected Normal NOT DETECTED The [facility] Comment on above: Performed By: #### U CLINT, CMP, LIPID, DBIL, PHOS, MG #### [facility] [address] [place] [address] Dr. Brea Causey Cyclos. Cayetanensis Not detected Normal NOT DETECTED The [facility] Comment on above: Performed By: #### U CLINT, CMP, LIPID, DBIL, PHOS, MG #### [facility] [address] [place] [address] Dr. Brea Causey E. Coli O157 Not Applicable Normal Not Applicable The [facility] Comment on above: Performed By: #### U CLINT, CMP, LIPID, DBIL, PHOS, MG #### [facility] [address] [place] [address] Dr. Brea Causey E. histolytica Not detected Normal NOT DETECTED The [facility] Comment on above: Performed By: #### U CLINT, CMP, LIPID, DBIL, PHOS, MG #### [facility] [address] [place] [address] Dr. Brea Causey EAEC Not detected Normal NOT DETECTED The [facility] Comment on above: Performed By: #### U CLINT, CMP, LIPID, DBIL, PHOS, MG #### [facility] [address] [place] [address] Dr. Brea Causey EIEC Not detected Normal NOT DETECTED The [facility] Comment on above: Performed By: #### U CLINT, CMP, LIPID, DBIL, PHOS, MG #### [facility] [address] [place] [address] Dr. Brea Causey EPEC Not detected Normal NOT DETECTED The [facility] Comment on above: Performed By: #### U CLINT, CMP, LIPID, DBIL, PHOS, MG #### [facility] [address] [place] [address] Dr. Brea Causey ETEC Not detected Normal NOT DETECTED The [facility] Comment on above: Performed By: #### U CLINT, CMP, LIPID, DBIL, PHOS, MG #### [facility] [address] [place] [address] Dr. Brea Almarazlimariel Not detected Normal NOT DETECTED The [facility] Comment on above: Performed By: #### U CLINT, CMP, LIPID, DBIL, PHOS, MG #### [facility] [address] [place] [address] Dr. Brea LEZAMA CONTROLS PASSED Normal The [facility] Comment on above: Performed By: #### U CLINT, CMP, LIPID, DBIL, PHOS, MG #### [facility] [address] [place] [address] Dr. Brea DARDEN [facility] HEADER GI PANEL BACTERIA Normal [facility] Comment on above: Performed By: #### U CLINT, CMP, LIPID, DBIL, PHOS, MG #### [facility] [address] [place] [address] Dr. Brea DARDEN ECOLI GI PANEL DIARRHEAGENIC E.COLI / SHIGELLA Normal The [facility] Comment on above: Performed By: #### U CLINT, CMP, LIPID, DBIL, PHOS, MG #### [facility] [address] [place] [address] Dr. Brea PINTO INFO SEE BELOW Normal The [facility] Comment on above: Result Comment: EAEC - Enteroaggregative E. Coli EPEC- Enteropathogenic E. Coli ETEC- Enterotoxigenic E. Coli lt/st STEC- Shigella-like toxin-producing E. Coli stx1/stx2 EIEC- Shigella/Enteroinvasive E. Coli Performed By: #### U CLINT, CMP, LIPID, DBIL, PHOS, MG #### [facility] [address] [address] [address] Brea PINTO PARASITES GI PANEL PARASITES Normal The [facility] Comment on above: Performed By: #### U CLINT, CMP, LIPID, DBIL, PHOS, MG #### [facility] [address] [address] [address] Brea PINTO VIRUS GI PANEL VIRUSES Normal The [facility] Comment on above: Performed By: #### U CLINT, CMP, LIPID, DBIL, PHOS, MG #### [facility] [address] [place] [address] Dr. Brea Causey Norovirus GI/GII Not detected Normal NOT DETECTED The [facility] Comment on above: Performed By: #### U CLINT, CMP, LIPID, DBIL, PHOS, MG #### [facility] [address] [place] [address] Dr. Brea Causey P. Shigelloides Not detected Normal NOT DETECTED The [facility] Comment on above: Performed By: #### U CLINT, CMP, LIPID, DBIL, PHOS, MG #### [facility] [address] [place] [address] Dr. Brea Causey Rotavirus A Not detected Normal NOT DETECTED The [facility] Comment on above: Performed By: #### U CLINT, CMP, LIPID, DBIL, PHOS, MG #### [facility] [address] [place] [address] Dr. Brea Causey Salmonella Not detected Normal NOT DETECTED The [facility] Comment on above: Performed By: #### U CLINT, CMP, LIPID, DBIL, PHOS, MG #### [facility] [address] [place] [address] Dr. Brea Causey Sapovirus Not detected Normal NOT DETECTED The [facility] Comment on above: Performed By: #### U CLINT, CMP, LIPID, DBIL, PHOS, MG #### [facility] [address] [place] [address] Dr. Brea Causey STEC Not detected Normal NOT DETECTED The [facility] Comment on above: Performed By: #### U CLINT, CMP, LIPID, DBIL, PHOS, MG #### [facility] [address] [place] [address] Dr. Brea Causey Vibrio Not detected Normal NOT DETECTED The [facility] Comment on above: Performed By: #### U CLINT, CMP, LIPID, DBIL, PHOS, MG #### [facility] [address] [place] [address] Dr. Brea Causey Vibrio Cholera Not detected Normal NOT DETECTED The [facility] Comment on above: Performed By: #### U CLINT, CMP, LIPID, DBIL, PHOS, MG #### [facility] [address] [place] [address] Dr. Brea Causey Y. Enterocolitica Not detected Normal NOT DETECTED The [facility] Comment on above: Performed By: #### U CLINT, CMP, LIPID, DBIL, PHOS, MG #### [facility] [address] [place] [address] Dr. Brea Causey PROF 14(COMP METB)on 022 Albumin [Mass/Vol] 4.0 g/dL Normal 3.4-5.0 [facility] Comment on above: Performed By: #### C BC #### [facility] [address] [place] [address] Dr. Brea Causey Albumin/Globulin [Mass ratio] 1.3 {ratio} Normal [facility] Comment on above: Performed By: #### C BC #### [facility] [address] [place] [address] Dr. Brea Causey ALP [Catalytic activity/Vol] 142 U/L Critically high 46-116 [facility] Comment on above: Performed By: #### C BC #### [facility] [address] [place] [address] Dr. Brea Causey ALT [Catalytic activity/Vol] 39 U/L Normal 16-63 [facility] Comment on above: Performed By: #### C BC #### [facility] [address] [address] [address] Brea Causey Anion gap [Moles/Vol] 13.6 mmol/L Normal [facility] Comment on above: Performed By: #### C BC #### [facility] [address] [address] [address] Brea Causey AST [Catalytic activity/Vol] 23 U/L Normal 15-37 [facility] Comment on above: Performed By: #### C BC #### [facility] [address] [place] [address] Dr. Brea Causey Bilirubin [Mass/Vol] 0.4 mg/dL Normal 0.2-1.0 [facility] Comment on above: Performed By: #### C BC #### [facility] [address] [place] [address] Dr. Brea Causey Calcium [Mass/Vol] 8.4 mg/dL Critically low 8.5-10.1 [facility] Comment on above: Performed By: #### C BC #### [facility] [address] [place] [address] Dr. Brea Causey Chloride [Moles/Vol] 97 mmol/L Critically low 98-107 [facility] Comment on above: Performed By: #### C BC #### [facility] [address] [place] [address] Dr. Brea Causey CO2 [Moles/Vol] 26.1 mmol/L Normal 21.0-32.0 [facility] Comment on above: Performed By: #### C BC #### [facility] [address] [place] [address] Dr. Brea Causey Creatinine [Mass/Vol] 1.21 mg/dL Normal 0.70-1.30 [facility] Comment on above: Performed By: #### C BC #### [facility] [address] [place] [address] Dr. Brea Causey EGFR-AF SALVADOREAN >60 Normal >=60 The [facility] Comment on above: Performed By: #### C BC #### [facility] [address] [place] [address] Dr. Brea Causey EGFR-NON AF [place]OREAN 59 mL/min/1.73m2 Critically low >=60 [facility] Comment on above: Performed By: #### C BC #### [facility] [address] [place] [address] Dr. Brea Causey Globulin (S) [Mass/Vol] 3.2 g/dL Normal [facility] Comment on above: Performed By: #### C BC #### [facility] [address] [address] [address] Brea Causey Glucose [Mass/Vol] 227 mg/dL Critically high 74-106 [facility] Comment on above: Performed By: #### C BC #### [facility] [address] [place] [address] Dr. Brea Causey Potassium [Moles/Vol] 4.7 mmol/L Normal 3.5-5.1 [facility] Comment on above: Performed By: #### C BC #### [facility] [address] [place] [address] Dr. Brea Causey Protein [Mass/Vol] 7.2 g/dL Normal 6.4-8.2 [facility] Comment on above: Performed By: #### C BC #### [facility] [address] [place] [address] Dr. Brea Causey Sodium [Moles/Vol] 132 mmol/L Critically low 136-145 [facility] Comment on above: Performed By: #### C BC #### [facility] [address] [place] [address] Dr. Brea Causey Urea nitrogen [Mass/Vol] 12.0 mg/dL Normal 7.0-18.0 [facility] Comment on above: Performed By: #### C BC #### [facility] [address] [place] [address] Dr. Brea Causey Urea nitrogen/Creatinine [Mass ratio] 9.9 mg/mg Normal [facility] Comment on above: Performed By: #### C BC #### [facility] [address] [place] [address] Dr. Brea Causey CBC W/DIFFon 06-22-2022 ABS IMM GRANS 0.1 10*3/uL Normal 0.0-0.2 The [facility] Comment on above: Performed By: #### 4 5506, 25134, 84649, 83771, 99524, 89115 #### [facility] [address] [place] [address], [facility] ABS NEUTROPHILS 5.9 10*3/uL Normal 1.6-7.6 The [facility] Comment on above: Performed By: #### 4 5506, 92004, 18910, 83923, 60982, 47868 #### [facility] [address] [place] [address], [facility] Basophils (Bld) [#/Vol] 0.0 10*3/uL Normal 0.0-0.2 [facility] Comment on above: Performed By: #### 4 5506, 70447, 55850, 39332, 70479, 66596 #### [facility] [address] [place] [address], [facility] Basophils/100 WBC (Bld) 0.3 % Normal 0.0-1.0 [facility] Comment on above: Performed By: #### 4 5506, 44076, 52584, 89533, 06417, 35015 #### [facility] [address] [facility] [place] [address], [place] Eosinophils (Bld) [#/Vol] 0.2 10*3/uL Normal 0.0-0.5 [facility] Comment on above: Performed By: #### 4 5506, 96061, 63487, 79820, 06986, 33861 #### [facility] [address] [place] [address], [facility] Eosinophils/100 WBC (Bld) 2.3 % Normal 0.0-6.0 The [facility] Comment on above: Performed By: #### 4 5506, 43820, 33936, 24362, 54672, 06525 #### [facility] [address] Erythrocyte distribution width (RBC) [Ratio] 13.4 % Normal 11.5-15.0 [facility] Comment on above: Performed By: #### 4 5506, 15582, 46601, 67022, 02507, 23138 #### [facility] [address] Hematocrit (Bld) [Volume fraction] 36.1 % Low 39.0-50.0 [facility] Comment on above: Performed By: #### 4 5506, 95377, 05963, 85568, 01258, 95187 #### [facility] [address] Hemoglobin (Bld) [Mass/Vol] 11.9 g/dL Low 13.0-17.0 [facility] Comment on above: Performed By: #### 4 5506, 15331, 27624, 80307, 78666, 07385 #### [facility] [address] [facility]. [address] IMMATURE GRANS 0.7 % Normal 0.0-1.0 [facility] Comment on above: Performed By: #### 4 5506, 36882, 13215, 64467, 68904, 80634 #### [facility] [address] [facility] [place] [address], [facility] Lymphocytes (Bld) [#/Vol] 0.9 10*3/uL Low 1.2-4.0 [facility] Comment on above: Performed By: #### 4 5506, 82690, 94984, 44564, 23067, 95637 #### [facility] [address] [place] [address], [facility] Lymphocytes/100 WBC (Bld) 12.1 % Low 20.0-45.0 [facility] Comment on above: Performed By: #### 4 5506, 94688, 01933, 97068, 20664, 95939 #### [facility] [address] [place] [address], [facility] MCH (RBC) [Entitic mass] 29.3 pg Normal 27.0-33.0 [facility] Comment on above: Performed By: #### 4 5506, 50609, 24226, 76755, 63561, 86045 #### [facility] [address] [place] [address], [facility] MCHC (RBC) [Mass/Vol] 33.0 g/dL Normal 32.0-35.0 [facility] Comment on above: Performed By: #### 4 5506, 23034, 95603, 41118, 08417, 84831 #### [facility] [address] [place] [address], [facility] MCV (RBC) [Entitic vol] 88.9 fL Normal 82.0-98.0 [facility] Comment on above: Performed By: #### 4 5506, 38998, 39608, 53665, 10974, 75280 #### [facility] [address] [place] [address], [facility] Monocytes (Bld) [#/Vol] 0.6 10*3/uL Normal 0.1-1.0 [facility] Comment on above: Performed By: #### 4 5506, 37767, 18693, 31918, 48162, 63155 #### [facility] [address] [place] [address], [facility] MONOS 8.3 % Normal 5.0-12.0 [facility] Comment on above: Performed By: #### 4 5506, 11564, 51514, 54754, 75602, 59485 #### [facility] [address] [place] [id number], [facility] Neutrophils/100 WBC (Bld) 76.3 % High 40.0-72.0 [facility] Comment on above: Performed By: #### 4 5506, 90077, 02397, 16827, 70727, 77513 #### [facility] 3000 [facility]. [address] Nucleated RBC/100 WBC (Bld) [Ratio] 0 % Normal 0-0 [facility] Comment on above: Performed By: #### 4 5506, 26742, 54194, 70064, 67260, 83558 #### [facility] 3000 [facility]. [address] PLAT CNT 260 10*3/uL Normal 150-400 [facility] Comment on above: Performed By: #### 4 5506, 66010, 52092, 38741, 99766, 32722 #### [facility] 3000 [facility]. [address] RBC (Bld) [#/Vol] 4.06 10*6/uL Low 4.20-5.70 [facility] Comment on above: Performed By: #### 4 5506, 95413, 73096, 38564, 79645, 19712 #### [facility] 3000 [facility]. [address] WBC (Bld) [#/Vol] 7.68 10*3/uL Normal 4.00-10.60 [facility] Comment on above: Performed By: #### 4 5506, 67044, 19019, 08949, 60096, 62057 #### [facility] 3000 [facility] [place] [address], [facility] COMP METABOLIC PANELon 10-31 Albumin [Mass/Vol] 4.4 g/dL Normal 3.5-5.7 [facility] Comment on above: Performed By: #### 4 5506, 43605, 27820, 03654, 27158, 84534 #### [facility] [address] [place] [address], [place] ALKALINE PHOSPH 132 IU/L High 34-104 [facility] Comment on above: Performed By: #### 4 5506, 56967, 14048, 15852, 42630, 00839 #### [facility] [address] [place] [address], [place] ALT [Catalytic activity/Vol] 26 U/L Normal 7-52 [facility] Comment on above: Performed By: #### 4 5506, 87509, 51454, 84750, 89655, 80153 #### [facility] [address] [place] [address], [place] AST [Catalytic activity/Vol] 17 U/L Normal 13-39 [facility] Comment on above: Performed By: #### 4 5506, 47018, 16595, 86135, 22597, 74249 #### [facility] [address] [place] [address], [place] Bilirubin [Mass/Vol] 0.4 mg/dL Normal 0.3-1.0 [facility] Comment on above: Performed By: #### 4 5506, 63460, 58764, 36063, 60833, 46983 #### [facility] [address] [place] [address], [place] Calcium [Mass/Vol] 8.6 mg/dL Normal 8.6-10.3 [facility] Comment on above: Performed By: #### 4 5506, 91193, 65252, 12168, 84632, 53629 #### [facility] [address] [place] [address], [place] Chloride [Moles/Vol] 97 mmol/L Low 98-107 [facility] Comment on above: Performed By: #### 4 5506, 64620, 94906, 50182, 16450, 60016 #### [facility] [address] [place] [address], [place] CO2 [Moles/Vol] 26 mmol/L Normal 21-31 [facility] Comment on above: Performed By: #### 4 5506, 24497, 89696, 83563, 19996, 55424 #### [facility] [address] [place] [address], [place] Creatinine [Mass/Vol] 1.04 mg/dL Normal 0.70-1.30 [facility] Comment on above: Performed By: #### 4 5506, 86842, 28610, 93142, 64993, 46531 #### [facility] [address] [place] [address], [place] GFR/1.73 sq M.predicted among blacks MDRD (S/P/Bld) [Vol rate/Area] mL/min/{1.73_m2} Normal >60 [facility] Comment on above: Performed By: #### 4 5506, 52015, 89754, 91659, 95346, 80893 #### [facility] [address] [place] [address], [place] GFR/1.73 sq M.predicted among non-blacks MDRD (S/P/Bld) [Vol rate/Area] mL/min/{1.73_m2} Normal >60 [facility] Comment on above: Performed By: #### 4 5506, 18706, 39875, 22364, 59988, 50429 #### [facility] [address] [place] [address], [place] Glucose [Mass/Vol] 158 mg/dL High 70-100 [facility] Comment on above: Performed By: #### 4 5506, 30361, 42371, 06143, 74487, 70311 #### [facility] [address] [place] [address], [place] Potassium [Moles/Vol] 4.4 mmol/L Normal 3.5-5.1 [facility] Comment on above: Performed By: #### 4 5506, 37001, 14292, 98380, 48330, 43277 #### [facility] [address] [place] [address], [facility] Protein [Mass/Vol] 6.6 g/dL Normal 6.0-8.3 [facility] Comment on above: Performed By: #### 4 5506, 18673, 54123, 62619, 44802, 98775 #### [facility] [address] [place] [address], [facility] Sodium [Moles/Vol] 131 mmol/L Low 136-145 [facility] Comment on above: Performed By: #### 4 5506, 60552, 38719, 91333, 10373, 49420 #### [facility] [address] [place] [address], [facility] Urea nitrogen [Mass/Vol] 15 mg/dL Normal 7-25 [facility] Comment on above: Performed By: #### 4 5506, 09852, 02424, 29309, 48629, 44163 #### [facility] [address] [place] [address], [facility] DIRECT BILIon 10-31-2021 Bilirubin.direct [Mass/Vol] 0.1 mg/dL Normal 0.0-0.2 [facility] Comment on above: Performed By: #### 4 5506, 89734, 80720, 31415, 27343, 30969 #### [facility] [address] [place] [address], [facility] LIPID PROFILEon 10-31-2021 Cholesterol [Mass/Vol] 70 mg/dL Low 120-200 [facility] Comment on above: Result Comment: CHOL ESTEROL REFERENCE RANGE: 20 YEARS AND OLDER CARDIOVASCULAR RISK Less than 200 mg/dl Low Risk 200 to 239 mg/dl Borderline Risk 240 mg/dl and greater High Risk Performed By: #### 4 5506, 92242, 95734, 34201, 78044, 00255 #### [facility] [address] [place] [address], [facility] Cholesterol in HDL [Mass/Vol] 35 mg/dL Normal 23-92 [facility] Comment on above: Result Comment: Slig ht variation in normal range could be due to gender and/or age. HDL CHOLESTEROL REFERENCE RANGE: 20 years and older Cardiovascular Risk > or =60 mg/dL Desirable 40 TO 59 mg/dL Low Risk <40 mg/dL High Risk Performed By: #### 4 5506, 18548, 66646, 79336, 55872, 15421 #### [facility] [address] [place] [address], [facility] Cholesterol in LDL [Mass/Vol] 20 mg/dL Normal 0-130 [facility] Comment on above: Result Comment: LDL IS A CALCULATION LDL IS ONLY VALID IF THE TRIG IS LESS THAN 400. Performed By: #### 4 5506, 53018, 02845, 98423, 26188, 26976 #### [facility] [address] [place] [address], [facility] Cholesterol.total/Cho lesterol in HDL [Mass ratio] 2.0 {ratio} Normal .0-4.5 [facility] Comment on above: Performed By: #### 4 5506, 90174, 68640, 81338, 65658, 93911 #### [facility] [address] [place] [address], [facility] NON-HDL CHOLESTEROL 35 mg/dL Normal [facility] Comment on above: Performed By: #### 4 5506, 75002, 07791, 53006, 05700, 00653 #### [facility] [address] [place] [address], [place] Triglyceride [Mass/Vol] 73 mg/dL Normal 40-149 [facility] Comment on above: Result Comment: TRIG LYCERIDE REFERENCE RANGE: 20 YEARS AND OLDER CARDIOVASCULAR RISK LESS THAN 150 mg/dl LOW RISK 150 TO 199 mg/dl BORDERLINE RISK 200 mg/dl AND GREATER HIGH RISK Performed By: #### 4 5506, 53688, 81694, 76228, 82100, 41292 #### [facility] [address] [place] [address], [facility] VLDL CHOL 15 mg/dL Normal 0-40 [facility] Comment on above: Performed By: #### 4 5506, 39002, 49601, 71532, 62487, 89699 #### [facility] [address] [place] [address], [facility] MAGNESIUM BLOODon 10-31-2021 Magnesium [Mass/Vol] 1.1 mg/dL Critically low 1.9-2.7 [facility] Comment on above: Performed By: #### 4 5506, 61805, 41705, 12097, 51425, 96555 #### [facility] 3000 [facility] [place] [address], [facility] PHOSPHORUS BLOODon Phosphate [Mass/Vol] 3.0 mg/dL Normal 2.5-5.0 [facility] Comment on above: Performed By: #### 4 5506, 62652, 64970, 39499, 51546, 25811 #### [facility] [address] PROSPERAon 10-31-2021 PROSPERA KIT Results to be mailed directly to physician's office by reference lab. Normal [facility] Comment on above: Result Comment: Test performed by [id number] [place] [address] Specimen collected for transplant patient and sent to [facility] per Dr instructions. No charge. No result expected. For billing and tracking purposes only. Performed By: #### 4 5506, 69919, 24623, 18235, 95462, 99857 #### [facility] 3000 [facility]. [address] RESULT Results to be mailed directly to physician's office by reference lab. Normal [facility] Comment on above: Performed By: #### 4 5506, 55943, 77131, 42420, 78322, 19253 #### [facility] [address] TACROLIMUSon 10-31-2021 Tacrolimus (Bld) [Mass/Vol] 7.6 ng/mL Normal 5.0-20.0 [facility] Comment on above: Result Comment: The GARCIA [employer]OWER Tacrolimus assay is a delayed one-step immunoassay for the quantitative determination of tacrolimus in human whole blood using the chemiluminescent microparticle immunoassay (CMIA) technology with flexible assay protocols, referred to as Chemiflex. Performed By: #### 4 5506, 15124, 24626, 90718, 81897, 34529 #### [address] URIC ACID BLOODon 10-31-2021 Urate [Mass/Vol] 7.8 mg/dL High 4.4-7.6 [facility] Comment on above: Performed By: #### 4 5506, 42159, 31695, 66623, 64502, 66463 #### [address] NM PARATHYROID WITH SPECT AN D CTon 07-24-2021 NM PARATHYROID WITH SPECT AND CT [facility] Department of Radiology [address] [place] [id number] Patient Name: ROGER SUAREZ : 1950 Sex: M Age: Race: White Pt. Location: Patient Status: D Ordered Date: 06/26/2021 8:40:00 AM Completed Date: 07/24/2021 01:21 PM Requesting Provider: NAGA BOSCH Attending Provider: NAGA BOSCH Report Copy To: JERICHO MCCARTHY Signs & Symptoms: E21.3 Hyperparathyroidism, unspecified I10 History: [facility] *SLA Comments: , , , Ordering Provider [...] SPECT. Electronically signed: Nan Earl. Transcribed by: [email or web address], User Resident: Electronically Signed by: NAN EARL @ 07/27/2021 12:13 PM Normal [facility] Comment on above: Order Comment: , , = ========= , Ordering Provider - NAGA BOSCH MD , CBC W/DIFFon 06-22-2021 ABS IMM GRANS 0.1 10*3/uL Normal 0.0-0.2 [facility] Comment on above: Performed By: #### 4 5506, 19858, 75161, 78046, 70968, 12357 #### [facility] [address] [facility] [place] [address], [facility] ABS NEUTROPHILS 4.7 10*3/uL Normal 1.6-7.6 [facility] Comment on above: Performed By: #### 4 5506, 47800, 78875, 32728, 34215, 64976 #### [facility] [address] [facility] [place] [address], [facility] Basophils (Bld) [#/Vol] 0.0 10*3/uL Normal 0.0-0.2 [facility] Comment on above: Performed By: #### 4 5506, 88852, 34715, 46771, 92146, 13769 #### [facility] [address] [facility] [place] [address], [facility] Basophils/100 WBC (Bld) 0.6 % Normal 0.0-1.0 [facility] Comment on above: Performed By: #### 4 5506, 66551, 46363, 81053, 57910, 80827 #### [facility] [address] [facility] [place] [address], [facility] Eosinophils (Bld) [#/Vol] 0.2 10*3/uL Normal 0.0-0.5 [facility] Comment on above: Performed By: #### 4 5506, 75092, 40258, 61184, 84586, 74130 #### [facility] [address] [facility] [place] [address], [facility] Eosinophils/100 WBC (Bld) 2.5 % Normal 0.0-6.0 [facility] Comment on above: Performed By: #### 4 5506, 77048, 60538, 63180, 03434, 46701 #### [facility] [address] Erythrocyte distribution width (RBC) [Ratio] 13.6 % Normal 11.5-15.0 [facility] Comment on above: Performed By: #### 4 5506, 78645, 55050, 44254, 17927, 74779 #### [facility] [address] [place] [address], [facility] Hematocrit (Bld) [Volume fraction] 36.3 % Low 39.0-50.0 [facility] Comment on above: Performed By: #### 4 5506, 33245, 52737, 20756, 13096, 55499 #### [facility] [address] Hemoglobin (Bld) [Mass/Vol] 11.7 g/dL Low 13.0-17.0 [facility] Comment on above: Performed By: #### 4 5506, 98302, 74370, 88644, 65370, 79404 #### [facility] [address] IMMATURE GRANS 0.8 % Normal 0.0-1.0 [facility] Comment on above: Performed By: #### 4 5506, 86609, 79121, 96456, 14115, 28611 #### [facility] [address] [facility]. [address] Lymphocytes (Bld) [#/Vol] 0.9 10*3/uL Low 1.2-4.0 [facility] Comment on above: Performed By: #### 4 5506, 05487, 33256, 26882, 95047, 14834 #### [facility] [address] [place] [address], [facility] Lymphocytes/100 WBC (Bld) 13.6 % Low 20.0-45.0 [facility] Comment on above: Performed By: #### 4 5506, 09963, 02916, 62036, 08438, 52139 #### [facility] [address] [place] [address], [facility] MCH (RBC) [Entitic mass] 28.6 pg Normal 27.0-33.0 [facility] Comment on above: Performed By: #### 4 5506, 67014, 65419, 12305, 43546, 54506 #### [facility] [address] [place] [address], [facility] MCHC (RBC) [Mass/Vol] 32.2 g/dL Normal 32.0-35.0 [facility] Comment on above: Performed By: #### 4 5506, 45263, 10057, 50996, 86634, 97795 #### [facility] [address] [place] [address], [facility] MCV (RBC) [Entitic vol] 88.8 fL Normal 82.0-98.0 [facility] Comment on above: Performed By: #### 4 5506, 60827, 80462, 50437, 98609, 50867 #### [facility] [address] [facility] [place] [address], [facility] Monocytes (Bld) [#/Vol] 0.6 10*3/uL Normal 0.1-1.0 [facility] Comment on above: Performed By: #### 4 5506, 54750, 62765, 67461, 98459, 66576 #### [facility] [address] [place] [address], [facility] MONOS 9.6 % Normal 5.0-12.0 [facility] Comment on above: Performed By: #### 4 5506, 46294, 84726, 25989, 35156, 28717 #### [facility] [address] [place] [id number], [facility] Neutrophils/100 WBC (Bld) 72.9 % High 40.0-72.0 [facility] Comment on above: Performed By: #### 4 5506, 85943, 41098, 62995, 66557, 31609 #### [facility] [address] [place] [address], [facility] Nucleated RBC/100 WBC (Bld) [Ratio] 0 % Normal 0-0 [facility] Comment on above: Performed By: #### 4 5506, 69587, 38480, 50331, 42427, 02718 #### [facility] [address] [place] [address], [facility] PLAT CNT 263 10*3/uL Normal 150-400 [facility] Comment on above: Performed By: #### 4 5506, 06675, 19872, 04364, 71329, 95092 #### [facility] [address] [facility] [place] [address], [facility] RBC (Bld) [#/Vol] 4.09 10*6/uL Low 4.20-5.70 [facility] Comment on above: Performed By: #### 4 5506, 16020, 72368, 30077, 10043, 79576 #### [facility] [address] [facility] [place] [place] [address], [facility] WBC (Bld) [#/Vol] 6.45 10*3/uL Normal 4.00-10.60 [facility] Comment on above: Performed By: #### 4 5506, 37151, 57896, 33994, 97111, 61261 #### [facility] [address] [place] [address], [facility] COMP METABOLIC PANELon 06-22 Albumin [Mass/Vol] 4.3 g/dL Normal 3.5-5.7 [facility] Comment on above: Performed By: #### 4 5506, 80411, 58154, 25540, 31594, 36199 #### [facility] [address] [place] [address], [place] ALKALINE PHOSPH 143 IU/L High 34-104 [facility] Comment on above: Performed By: #### 4 5506, 56691, 38865, 97741, 60353, 71883 #### [facility] [address] [place] [address], [place] ALT [Catalytic activity/Vol] 18 U/L Normal 7-52 [facility] Comment on above: Performed By: #### 4 5506, 47201, 18463, 67908, 64740, 35431 #### [facility] [address] [place] [address], [place] AST [Catalytic activity/Vol] 15 U/L Normal 13-39 [facility] Comment on above: Performed By: #### 4 5506, 91124, 08175, 38293, 49414, 04018 #### [facility] [address] [place] [address], [place] Bilirubin [Mass/Vol] 0.3 mg/dL Normal 0.3-1.0 [facility] Comment on above: Performed By: #### 4 5506, 49538, 09782, 95081, 20814, 79518 #### [facility] [address] [place] [address], [place] Calcium [Mass/Vol] 10.6 mg/dL High 8.6-10.3 [facility] Comment on above: Performed By: #### 4 5506, 79267, 86003, 28117, 90062, 55544 #### [facility] [address] [place] [address], [place] Chloride [Moles/Vol] 102 mmol/L Normal 98-107 [facility] Comment on above: Performed By: #### 4 5506, 60770, 19326, 10442, 79904, 21206 #### [facility] [address] [place] [address], [place] CO2 [Moles/Vol] 24 mmol/L Normal 21-31 [facility] Comment on above: Performed By: #### 4 5506, 22807, 79262, 69797, 39708, 08865 #### [facility] [address] [place] [address], [facility] Creatinine [Mass/Vol] 1.04 mg/dL Normal 0.70-1.30 [facility] Comment on above: Performed By: #### 4 5506, 74360, 63704, 25685, 99081, 37300 #### [facility] [address] [place] [address], [place] GFR/1.73 sq M.predicted among blacks MDRD (S/P/Bld) [Vol rate/Area] mL/min/{1.73_m2} Normal >60 [facility] Comment on above: Performed By: #### 4 5506, 42081, 14733, 35450, 17293, 58660 #### [facility] [address] [place] [address], [place] GFR/1.73 sq M.predicted among non-blacks MDRD (S/P/Bld) [Vol rate/Area] mL/min/{1.73_m2} Normal >60 [facility] Comment on above: Performed By: #### 4 5506, 52855, 21900, 30406, 71299, 06062 #### [facility] [address] [place] [address], [place] Glucose [Mass/Vol] 167 mg/dL High 70-100 [facility] Comment on above: Performed By: #### 4 5506, 17870, 63376, 75867, 55826, 73138 #### [facility] [address] [place] [address], [place] Potassium [Moles/Vol] 5.3 mmol/L High 3.5-5.1 [facility] Comment on above: Performed By: #### 4 5506, 85919, 91233, 88639, 58878, 95592 #### [facility] [address] [place] [address], [facility] Protein [Mass/Vol] 6.5 g/dL Normal 6.0-8.3 [facility] Comment on above: Performed By: #### 4 5506, 85072, 60318, 41549, 81447, 78096 #### [facility] [address] [place] [address], [facility] Sodium [Moles/Vol] 134 mmol/L Low 136-145 [facility] Comment on above: Performed By: #### 4 5506, 79082, 02279, 24356, 98656, 28129 #### [facility] [address] [place] [address], [facility] Urea nitrogen [Mass/Vol] 11 mg/dL Normal 7-25 [facility] Comment on above: Performed By: #### 4 5506, 95523, 22343, 29471, 27630, 58209 #### [facility] [address] [place] [address], [facility] DIRECT BILIon 06-22-2021 Bilirubin.direct [Mass/Vol] 0.1 mg/dL Normal 0.0-0.2 [facility] Comment on above: Performed By: #### 4 5506, 52722, 90081, 84109, 94025, 28697 #### [facility] [address] [place] [address], [facility] LIPID PROFILEon 06-22-2021 Cholesterol [Mass/Vol] 77 mg/dL Low 120-200 [facility] Comment on above: Result Comment: CHOL ESTEROL REFERENCE RANGE: 20 YEARS AND OLDER CARDIOVASCULAR RISK Less than 200 mg/dl Low Risk 200 to 239 mg/dl Borderline Risk 240 mg/dl and greater High Risk Performed By: #### 4 5506, 37428, 01733, 25096, 84405, 22813 #### [facility] [address] [place] [address], [facility] Cholesterol in HDL [Mass/Vol] 40 mg/dL Normal 23-92 [facility] Comment on above: Result Comment: Slig ht variation in normal range could be due to gender and/or age. HDL CHOLESTEROL REFERENCE RANGE: 20 years and older Cardiovascular Risk > or =60 mg/dL Desirable 40 TO 59 mg/dL Low Risk <40 mg/dL High Risk Performed By: #### 4 5506, 30742, 85515, 26001, 30571, 78688 #### [facility] [address] [place] [address], [place] Cholesterol in LDL [Mass/Vol] 24 mg/dL Normal 0-130 [facility] Comment on above: Result Comment: LDL IS A CALCULATION LDL IS ONLY VALID IF THE TRIG IS LESS THAN 400. Performed By: #### 4 5506, 75598, 50228, 10947, 98544, 11784 #### [facility] [address] [place] [address], [place] Cholesterol.total/Cho lesterol in HDL [Mass ratio] 1.9 {ratio} Normal .0-4.5 [facility] Comment on above: Performed By: #### 4 5506, 39144, 04683, 26740, 87099, 70942 #### [facility] [address] [place] [address], [place] NON-HDL CHOLESTEROL 37 mg/dL Normal [facility] Comment on above: Performed By: #### 4 [id number], 53211, 63667, 93984, 70381, 52830 #### [facility] [address] [place] [address], [place] Triglyceride [Mass/Vol] 63 mg/dL Normal 40-149 [facility] Comment on above: Result Comment: TRIG LYCERIDE REFERENCE RANGE: 20 YEARS AND OLDER CARDIOVASCULAR RISK LESS THAN 150 mg/dl LOW RISK 150 TO 199 mg/dl BORDERLINE RISK 200 mg/dl AND GREATER HIGH RISK Performed By: #### 4 [id number], 84149, 59177, 12305, 16875, 07755 #### [facility] [address] [place] [address], [facility] VLDL CHOL 13 mg/dL Normal 0-40 [facility] Comment on above: Performed By: #### 4 5506, 47436, 43149, 37977, 87028, 20489 #### [facility] [address] [place] [address], [facility] MAGNESIUM BLOODon 06-22-2021 Magnesium [Mass/Vol] 1.4 mg/dL Low 1.9-2.7 [facility] Comment on above: Performed By: #### 4 5506, 76636, 80917, 91951, 34001, 16025 #### [facility] [address] [facility] [place] [address], [facility] PHOSPHORUS BLOODon Phosphate [Mass/Vol] 2.5 mg/dL Normal 2.5-5.0 [facility] Comment on above: Performed By: #### 4 5506, 05784, 65457, 08042, 91874, 65343 #### [facility] [address] [facility]. [address] PTH INTACTon 06-22-2021 PTH INTACT 155 pg/mL High 12-88 [facility] Comment on above: Performed By: #### 4 5506, 06950, 59438, 33963, 38779, 56306 #### [facility] [address] [facility] [place] [address], [facility] TACROLIMUSon 06-22-2021 Tacrolimus (Bld) [Mass/Vol] 21.0 ng/mL High 5.0-20.0 [facility] Comment on above: Result Comment: The GARCIA TUBE BLOWER Tacrolimus assay is a delayed one-step immunoassay for the quantitative determination of tacrolimus in human whole blood using the chemiluminescent microparticle immunoassay (CMIA) technology with flexible assay protocols, referred to as Chemiflex. Performed By: #### 4 5506, 64632, 95908, 80438, 88779, 93643 #### [facility] [address] URIC ACID BLOODon 06-22-2021 Urate [Mass/Vol] 7.9 mg/dL High 4.4-7.6 [facility] Comment on above: Performed By: #### 4 5506, 82851, 62815, 54623, 78483, 04992 #### [facility] [address] [place] [address], [facility] CBC W/DIFFon 04-19-2021 ABS IMM GRANS 0.1 10*3/uL Normal 0.0-0.2 [facility] Comment on above: Performed By: #### 4 5506, 39585, 96854, 82135, 07835, 26564 #### [facility] [address] ABS NEUTROPHILS 5.2 10*3/uL Normal 1.6-7.6 [facility] Comment on above: Performed By: #### 4 5506, 47441, 31551, 98993, 79265, 66824 #### [facility] [address] [place] [address], [facility] Basophils (Bld) [#/Vol] 0.0 10*3/uL Normal 0.0-0.2 [facility] Comment on above: Performed By: #### 4 5506, 45037, 70521, 08661, 21568, 53566 #### [facility] [address] Basophils/100 WBC (Bld) 0.4 % Normal 0.0-1.0 [facility] Comment on above: Performed By: #### 4 5506, 80166, 28508, 78447, 85241, 92711 #### [facility] [address] [place] [address], [facility] Eosinophils (Bld) [#/Vol] 0.2 10*3/uL Normal 0.0-0.5 [facility] Comment on above: Performed By: #### 4 5506, 36316, 39350, 11762, 33286, 48529 #### [facility] [address] [place] [address], [facility] Eosinophils/100 WBC (Bld) 2.9 % Normal 0.0-6.0 [facility] Comment on above: Performed By: #### 4 5506, 30229, 68977, 31464, 23421, 00964 #### [facility] [address] Erythrocyte distribution width (RBC) [Ratio] 13.3 % Normal 11.5-15.0 [facility] Comment on above: Performed By: #### 4 5506, 99566, 95211, 48432, 02190, 94752 #### [facility] [address] Hematocrit (Bld) [Volume fraction] 37.1 % Low 39.0-50.0 [facility] Comment on above: Performed By: #### 4 5506, 02782, 51089, 63994, 26058, 74421 #### [facility] [address] [facility] [address] Hemoglobin (Bld) [Mass/Vol] 11.7 g/dL Low 13.0-17.0 [facility] Comment on above: Performed By: #### 4 5506, 13605, 71269, 84479, 61924, 43867 #### [facility] [address] [place] [address], [facility] IMMATURE GRANS 0.9 % Normal 0.0-1.0 [facility] Comment on above: Performed By: #### 4 5506, 16108, 32512, 00595, 39560, 75595 #### [facility] [address] [place] [address], [facility] Lymphocytes (Bld) [#/Vol] 0.9 10*3/uL Low 1.2-4.0 [facility] Comment on above: Performed By: #### 4 5506, 99027, 35732, 56306, 68192, 56352 #### [facility] [address] [facility] [place] [address], [facility] Lymphocytes/100 WBC (Bld) 12.5 % Low 20.0-45.0 [facility] Comment on above: Performed By: #### 4 5506, 73719, 88661, 95082, 31159, 11991 #### [facility] [address] [facility] [place] [address], [facility] MCH (RBC) [Entitic mass] 29.0 pg Normal 27.0-33.0 [facility] Comment on above: Performed By: #### 4 5506, 01220, 69216, 61812, 76400, 90713 #### [facility] [address] [facility] [place] [address], [facility] MCHC (RBC) [Mass/Vol] 31.5 g/dL Low 32.0-35.0 [facility] Comment on above: Performed By: #### 4 5506, 37126, 60083, 46222, 62119, 40709 #### [facility] [address] [facility] [place] [address], [facility] MCV (RBC) [Entitic vol] 92.1 fL Normal 82.0-98.0 [facility] Comment on above: Performed By: #### 4 5506, 93754, 37801, 23518, 93840, 87821 #### [facility] [address] [place] [address], [facility] Monocytes (Bld) [#/Vol] 0.6 10*3/uL Normal 0.1-1.0 [facility] Comment on above: Performed By: #### 4 5506, 49465, 28136, 91679, 28504, 96141 #### [facility] [address] [facility] [place] [address], [facility] MONOS 8.6 % Normal 5.0-12.0 [facility] Comment on above: Performed By: #### 4 5506, 76375, 56948, 84988, 98751, 12451 #### [facility] [address] [place] [id number], [facility] Neutrophils/100 WBC (Bld) 74.7 % High 40.0-72.0 [facility] Comment on above: Performed By: #### 4 5506, 14169, 91443, 75684, 50149, 48789 #### [facility] [address] [place] [id number], [facility] Nucleated RBC/100 WBC (Bld) [Ratio] 0 % Normal 0-0 [facility] Comment on above: Performed By: #### 4 5506, 40347, 35909, 75772, 11548, 45031 #### [facility] [address] [place] [id number], [place] PLAT CNT 290 10*3/uL Normal 150-400 [facility] Comment on above: Performed By: #### 4 5506, 25732, 29162, 42826, 51951, 84253 #### [facility] [address] [place] [id number], [facility] RBC (Bld) [#/Vol] 4.03 10*6/uL Low 4.20-5.70 [facility] Comment on above: Performed By: #### 4 5506, 54286, 55489, 49661, 69606, 44976 #### [facility] [address] [place] [address], [place] WBC (Bld) [#/Vol] 6.96 10*3/uL Normal 4.00-10.60 [facility] Comment on above: Performed By: #### 4 5506, 28675, 99797, 56164, 63738, 49337 #### [facility] [address] [place] [address], [facility] COMP METABOLIC PANELon 04-19 Albumin [Mass/Vol] 4.3 g/dL Normal 3.5-5.7 [facility] Comment on above: Performed By: #### 4 5506, 19029, 86237, 73026, 87954, 88087 #### [facility] [address] [place] [address], [facility] ALKALINE PHOSPH 137 IU/L High 34-104 [facility] Comment on above: Performed By: #### 4 5506, 56200, 15448, 58400, 72251, 20886 #### [facility] [address] [place] [address], [facility] ALT [Catalytic activity/Vol] 17 U/L Normal 7-52 [facility] Comment on above: Performed By: #### 4 5506, 14112, 75735, 26551, 81595, 70109 #### [facility] [address] [place] [address], [facility] AST [Catalytic activity/Vol] 16 U/L Normal 13-39 [facility] Comment on above: Performed By: #### 4 5506, 71758, 25309, 35847, 08415, 64267 #### [facility] [address] [place] [address], [place] Bilirubin [Mass/Vol] 0.4 mg/dL Normal 0.3-1.0 [facility] Comment on above: Performed By: #### 4 5506, 99362, 54697, 56007, 88498, 03152 #### [facility] [address] [place] [address], [place] Calcium [Mass/Vol] 10.5 mg/dL High 8.6-10.3 [facility] Comment on above: Performed By: #### 4 5506, 79100, 96866, 09051, 63802, 09078 #### [facility] [address] [place] [address], [place] Chloride [Moles/Vol] 99 mmol/L Normal 98-107 [facility] Comment on above: Performed By: #### 4 5506, 23335, 33610, 31486, 60029, 42182 #### [facility] [address] [place] [address], [place] CO2 [Moles/Vol] 27 mmol/L Normal 21-31 [facility] Comment on above: Performed By: #### 4 5506, 79274, 24218, 86743, 40004, 93077 #### [facility] [address] [place] [address], [place] Creatinine [Mass/Vol] 1.04 mg/dL Normal 0.70-1.30 [facility] Comment on above: Performed By: #### 4 5506, 99227, 33609, 43195, 81692, 55719 #### [facility] [address] [place] [address], [place] GFR/1.73 sq M.predicted among blacks MDRD (S/P/Bld) [Vol rate/Area] mL/min/{1.73_m2} Normal >60 [facility] Comment on above: Performed By: #### 4 5506, 79842, 76767, 06969, 46649, 30003 #### [facility] [address] [place] [address], [place] GFR/1.73 sq M.predicted among non-blacks MDRD (S/P/Bld) [Vol rate/Area] mL/min/{1.73_m2} Normal >60 [facility] Comment on above: Performed By: #### 4 5506, 66788, 51743, 60099, 07249, 01241 #### [facility] [address] [place] [address], [place] Glucose [Mass/Vol] 139 mg/dL High 70-100 [facility] Comment on above: Performed By: #### 4 5506, 28169, 85220, 44187, 76755, 19620 #### [facility] [address] [place] [address], [facility] Potassium [Moles/Vol] 5.1 mmol/L Normal 3.5-5.1 [facility] Comment on above: Performed By: #### 4 5506, 67149, 69881, 87371, 65776, 08960 #### [facility] [address] [place] [address], [facility] Protein [Mass/Vol] 6.5 g/dL Normal 6.0-8.3 [facility] Comment on above: Performed By: #### 4 5506, 77921, 87418, 50858, 01276, 32435 #### [facility] [address] [place] [address], [facility] Sodium [Moles/Vol] 133 mmol/L Low 136-145 [facility] Comment on above: Performed By: #### 4 5506, 43143, 26462, 76144, 25882, 24969 #### [facility] [address] [place] [address], [facility] Urea nitrogen [Mass/Vol] 11 mg/dL Normal 7-25 [facility] Comment on above: Performed By: #### 4 5506, 01564, 23812, 34337, 09505, 28220 #### [facility] [address] [place] [address], [facility] DIRECT BILIon 04-19-2021 Bilirubin.direct [Mass/Vol] 0.1 mg/dL Normal 0.0-0.2 [facility] Comment on above: Performed By: #### 4 5506, 98342, 64428, 92624, 58592, 62267 #### [facility] [address] [place] [address], [place] LIPID PROFILEon 04-19-2021 Cholesterol [Mass/Vol] 82 mg/dL Low 120-200 [facility] Comment on above: Result Comment: CHOL ESTEROL REFERENCE RANGE: 20 YEARS AND OLDER CARDIOVASCULAR RISK Less than 200 mg/dl Low Risk 200 to 239 mg/dl Borderline Risk 240 mg/dl and greater High Risk Performed By: #### 4 5506, 28385, 31140, 88469, 42581, 54177 #### [facility] [address] [place] [address], [place] Cholesterol in HDL [Mass/Vol] 38 mg/dL Normal 23-92 [facility] Comment on above: Result Comment: Slig ht variation in normal range could be due to gender and/or age. HDL CHOLESTEROL REFERENCE RANGE: 20 years and older Cardiovascular Risk > or =60 mg/dL Desirable 40 TO 59 mg/dL Low Risk <40 mg/dL High Risk Performed By: #### 4 5506, 21478, 60663, 10539, 87484, 97731 #### [facility] [address] [place] [address], [facility] Cholesterol in LDL [Mass/Vol] 25 mg/dL Normal 0-130 [facility] Comment on above: Result Comment: LDL IS A CALCULATION LDL IS ONLY VALID IF THE TRIG IS LESS THAN 400. Performed By: #### 4 5506, 17314, 45560, 56555, 10775, 85700 #### [facility] [address] [place] [address], [place] Cholesterol.total/Cho lesterol in HDL [Mass ratio] 2.2 {ratio} Normal .0-4.5 [facility] Comment on above: Performed By: #### 4 5506, 55967, 58503, 11267, 94384, 07824 #### [facility] [address] [place] [address], [place] NON-HDL CHOLESTEROL 44 mg/dL Normal [facility] Comment on above: Performed By: #### 4 5506, 47590, 39086, 02111, 32996, 38252 #### [facility] [address] Triglyceride [Mass/Vol] 93 mg/dL Normal 40-149 [facility] Comment on above: Result Comment: TRIG LYCERIDE REFERENCE RANGE: 20 YEARS AND OLDER CARDIOVASCULAR RISK LESS THAN 150 mg/dl LOW RISK 150 TO 199 mg/dl BORDERLINE RISK 200 mg/dl AND GREATER HIGH RISK Performed By: #### 4 5506, 20131, 19133, 41174, 65286, 96760 #### [facility] [address] [place] [address], [facility] VLDL CHOL 19 mg/dL Normal 0-40 [facility] Comment on above: Performed By: #### 4 5506, 62673, 58279, 30975, 06839, 07584 #### [facility] [address] MAGNESIUM BLOODon 04-19-2021 Magnesium [Mass/Vol] 1.8 mg/dL Low 1.9-2.7 [facility] Comment on above: Performed By: #### 4 5506, 40564, 22189, 45722, 90752, 43461 #### [facility] [address] [facility] [place] [address], [facility] PHOSPHORUS BLOODon Phosphate [Mass/Vol] 3.0 mg/dL Normal 2.5-5.0 [facility] Comment on above: Performed By: #### 4 5506, 19739, 14555, 14545, 01195, 22517 #### [facility] [address] PROSPERAon 04-19-2021 PROSPERA KIT Results to be mailed directly to physician's office by reference lab. Normal [facility] Comment on above: Result Comment: Test performed by [id number] [place] [id number] No result expected. For billing and tracking purposes only. Specimen collected for transplant patient and sent to [facility] per Dr instructions. No charge. Performed By: #### 4 5506, 07109, 46635, 32902, 03673, 79931 #### [facility] 3000 [facility]. [address] RESULT Results to be mailed directly to physician's office by reference lab. Normal [facility] Comment on above: Performed By: #### 4 5506, 19559, 55873, 60977, 44856, 28531 #### [facility] [address] [facility]. [address] TACROLIMUSon 04-19-2021 Tacrolimus (Bld) [Mass/Vol] 7.7 ng/mL Normal 5.0-20.0 [facility] Comment on above: Result Comment: The GARCIA TUBE BLOWER Tacrolimus assay is a delayed one-step immunoassay for the quantitative determination of tacrolimus in human whole blood using the chemiluminescent microparticle immunoassay (CMIA) technology with flexible assay protocols, referred to as Chemiflex. Performed By: #### 4 5506, 13545, 26446, 68948, 15232, 91927 #### [facility] [address] [facility]. [address] URIC ACID BLOODon 04-19-2021 Urate [Mass/Vol] 7.9 mg/dL High 4.4-7.6 [facility] Comment on above: Performed By: #### 4 5506, 06959, 97509, 61740, 54571, 63143 #### [facility] [address] [facility]. [address] CBC W/DIFFon 04-11-2021 ABS IMM GRANS 0.0 10*3/uL Normal 0.0-0.2 [facility] Comment on above: Performed By: #### 4 5506, 60020, 61965, 10208, 26647, 16711 #### [facility] [address] [facility]. [address] ABS NEUTROPHILS 4.5 10*3/uL Normal 1.6-7.6 [facility] Comment on above: Performed By: #### 4 5506, 35744, 59597, 36722, 81678, 31586 #### [facility] [address] [place] [address], [facility] Basophils (Bld) [#/Vol] 0.0 10*3/uL Normal 0.0-0.2 [facility] Comment on above: Performed By: #### 4 5506, 20773, 14862, 57058, 97776, 05892 #### [facility] [address] [place] [address], [place] Basophils/100 WBC (Bld) 0.5 % Normal 0.0-1.0 [facility] Comment on above: Performed By: #### 4 5506, 11948, 34280, 43641, 92312, 27776 #### [facility] [address] [place] [address], [facility] Eosinophils (Bld) [#/Vol] 0.2 10*3/uL Normal 0.0-0.5 [facility] Comment on above: Performed By: #### 4 5506, 80495, 14145, 92015, 14108, 78205 #### [facility] [address] [facility] [place] [address], [facility] Eosinophils/100 WBC (Bld) 3.1 % Normal 0.0-6.0 [facility] Comment on above: Performed By: #### 4 5506, 78473, 82923, 00506, 40383, 55215 #### [facility] [address] [place] [address], [place] Erythrocyte distribution width (RBC) [Ratio] 13.4 % Normal 11.5-15.0 [facility] Comment on above: Performed By: #### 4 5506, 66199, 07207, 02618, 02856, 39216 #### [facility] [address] [place] [address], [place] Hematocrit (Bld) [Volume fraction] 35.5 % Low 39.0-50.0 [facility] Comment on above: Performed By: #### 4 5506, 24777, 81246, 13867, 37837, 33625 #### [facility] [address] [facility]. [address] Hemoglobin (Bld) [Mass/Vol] 11.7 g/dL Low 13.0-17.0 [facility] Comment on above: Performed By: #### 4 5506, 54042, 62448, 30091, 58622, 22071 #### [facility] 3000 [facility]. [address] IMMATURE GRANS 0.6 % Normal 0.0-1.0 [facility] Comment on above: Performed By: #### 4 5506, 51097, 27359, 32794, 68537, 59579 #### [facility] [address] [facility]. [address] Lymphocytes (Bld) [#/Vol] 0.8 10*3/uL Low 1.2-4.0 [facility] Comment on above: Performed By: #### 4 5506, 41322, 90556, 80376, 26855, 44485 #### [facility] 3000 [facility]. [address] Lymphocytes/100 WBC (Bld) 12.9 % Low 20.0-45.0 [facility] Comment on above: Performed By: #### 4 5506, 07523, 37172, 38002, 78713, 15258 #### [facility] [address] [facility] [place] [address], [facility] MCH (RBC) [Entitic mass] 29.2 pg Normal 27.0-33.0 [facility] Comment on above: Performed By: #### 4 5506, 40971, 84495, 86622, 23158, 01882 #### [facility] 3000 [facility] [place] [address], [facility] MCHC (RBC) [Mass/Vol] 33.0 g/dL Normal 32.0-35.0 [facility] Comment on above: Performed By: #### 4 5506, 69123, 06698, 33154, 69854, 84626 #### [facility] [address] [place] [address], [facility] MCV (RBC) [Entitic vol] 88.5 fL Normal 82.0-98.0 [facility] Comment on above: Performed By: #### 4 5506, 75517, 30630, 67934, 20863, 93084 #### [facility] [address] [place] [address], [facility] Monocytes (Bld) [#/Vol] 0.6 10*3/uL Normal 0.1-1.0 [facility] Comment on above: Performed By: #### 4 5506, 03855, 34338, 68273, 00357, 70693 #### [facility] [address] [place] [address], [facility] MONOS 10.3 % Normal 5.0-12.0 [facility] Comment on above: Performed By: #### 4 5506, 49767, 35608, 17140, 78309, 95860 #### [facility] [address] [place] [address], [facility] Neutrophils/100 WBC (Bld) 72.6 % High 40.0-72.0 [facility] Comment on above: Performed By: #### 4 5506, 99387, 82956, 76393, 04281, 46626 #### [facility] [address] [place] [address], [facility] Nucleated RBC/100 WBC (Bld) [Ratio] 0 % Normal 0-0 [facility] Comment on above: Performed By: #### 4 5506, 55944, 54992, 73490, 82141, 25807 #### [facility] [address] [place] [address], [facility] PLAT CNT 272 10*3/uL Normal 150-400 [facility] Comment on above: Performed By: #### 4 5506, 45331, 96869, 46642, 46166, 80987 #### [facility] [address] [place] [address], [facility] RBC (Bld) [#/Vol] 4.01 10*6/uL Low 4.20-5.70 [facility] Comment on above: Performed By: #### 4 5506, 72954, 05645, 68225, 54357, 22907 #### [facility] 3000 [facility] [place] [address], [facility] WBC (Bld) [#/Vol] 6.22 10*3/uL Normal 4.00-10.60 [facility] Comment on above: Performed By: #### 4 5506, 43746, 92977, 70923, 26093, 29183 #### [facility] 3000 [facility]. [address] COMP METABOLIC PANELon 04-11 Albumin [Mass/Vol] 4.3 g/dL Normal 3.5-5.7 [facility] Comment on above: Performed By: #### 4 5506, 67128, 96581, 03140, 01395, 29388 #### [facility] 3000 [facility]. [address] ALKALINE PHOSPH 115 IU/L High 34-104 [facility] Comment on above: Performed By: #### 4 5506, 25072, 03855, 12530, 15512, 51775 #### [facility] [address] [facility]. [address] ALT [Catalytic activity/Vol] 16 U/L Normal 7-52 [facility] Comment on above: Performed By: #### 4 5506, 15285, 25433, 01553, 28921, 57975 #### [facility] [address] [place] [address], [place] AST [Catalytic activity/Vol] 15 U/L Normal 13-39 [facility] Comment on above: Performed By: #### 4 5506, 80012, 98127, 56616, 97477, 70275 #### [facility] [address] [place] [address], [place] Bilirubin [Mass/Vol] 0.6 mg/dL Normal 0.3-1.0 [facility] Comment on above: Performed By: #### 4 5506, 90324, 75707, 84399, 76057, 23237 #### [facility] [address] [place] [address], [place] Calcium [Mass/Vol] 10.3 mg/dL Normal 8.6-10.3 [facility] Comment on above: Performed By: #### 4 5506, 68684, 57470, 62206, 85865, 95316 #### [facility] [facility] [address] [place] [address], [place] Chloride [Moles/Vol] 97 mmol/L Low 98-107 [facility] Comment on above: Performed By: #### 4 5506, 23209, 41566, 22543, 80723, 10903 #### [facility] [address] [place] [address], [place] CO2 [Moles/Vol] 26 mmol/L Normal 21-31 [facility] Comment on above: Performed By: #### 4 5506, 09992, 45261, 35406, 76050, 45187 #### [facility] [address] [place] [address], [place] Creatinine [Mass/Vol] 0.93 mg/dL Normal 0.70-1.30 [facility] Comment on above: Performed By: #### 4 5506, 63088, 00219, 38170, 10766, 46317 #### [facility] [address] [place] [address], [place] GFR/1.73 sq M.predicted among blacks MDRD (S/P/Bld) [Vol rate/Area] mL/min/{1.73_m2} Normal >60 [facility] Comment on above: Performed By: #### 4 5506, 17629, 97505, 54165, 89519, 73289 #### [facility] [address] [place] [address], [place] GFR/1.73 sq M.predicted among non-blacks MDRD (S/P/Bld) [Vol rate/Area] mL/min/{1.73_m2} Normal >60 [facility] Comment on above: Performed By: #### 4 5506, 63627, 15758, 58398, 04648, 23828 #### [facility] [address] [place] [address], [place] Glucose [Mass/Vol] 136 mg/dL High 70-100 [facility] Comment on above: Performed By: #### 4 5506, 04881, 77004, 21574, 51116, 82346 #### [facility] [address] [place] [address], [place] Potassium [Moles/Vol] 5.2 mmol/L High 3.5-5.1 [facility] Comment on above: Performed By: #### 4 5506, 08216, 73215, 80876, 06212, 05388 #### [facility] [address] [place] [address], [place] Protein [Mass/Vol] 6.7 g/dL Normal 6.0-8.3 [facility] Comment on above: Performed By: #### 4 5506, 52000, 85212, 00829, 22825, 65881 #### [facility] [address] [place] [address], [place] Sodium [Moles/Vol] 129 mmol/L Low 136-145 [facility] Comment on above: Performed By: #### 4 5506, 93722, 43333, 38734, 49072, 13808 #### [facility] [address] [place] [address], [facility] Urea nitrogen [Mass/Vol] 10 mg/dL Normal 7-25 [facility] Comment on above: Performed By: #### 4 5506, 73890, 94016, 74656, 89076, 19779 #### [facility] [address] [place] [address], [facility] DIRECT BILIon 04-11-2021 Bilirubin.direct [Mass/Vol] 0.2 mg/dL Normal 0.0-0.2 [facility] Comment on above: Performed By: #### 4 5506, 94313, 94566, 15576, 47619, 90337 #### [facility] [address] [place] [address], [facility] LIPID PROFILEon 04-11-2021 Cholesterol [Mass/Vol] 84 mg/dL Low 120-200 [facility] Comment on above: Result Comment: CHOL ESTEROL REFERENCE RANGE: 20 YEARS AND OLDER CARDIOVASCULAR RISK Less than 200 mg/dl Low Risk 200 to 239 mg/dl Borderline Risk 240 mg/dl and greater High Risk Performed By: #### 4 5506, 02518, 77145, 28502, 11703, 34656 #### [facility] [address] [place] [address], [facility] Cholesterol in HDL [Mass/Vol] 41 mg/dL Normal 23-92 [facility] Comment on above: Result Comment: Slig ht variation in normal range could be due to gender and/or age. HDL CHOLESTEROL REFERENCE RANGE: 20 years and older Cardiovascular Risk > or =60 mg/dL Desirable 40 TO 59 mg/dL Low Risk <40 mg/dL High Risk Performed By: #### 4 5506, 44899, 27075, 84184, 68861, 29044 #### [facility] [address] [place] [address], [place] Cholesterol in LDL [Mass/Vol] 34 mg/dL Normal 0-130 [facility] Comment on above: Result Comment: LDL IS A CALCULATION LDL IS ONLY VALID IF THE TRIG IS LESS THAN 400. Performed By: #### 4 5506, 01091, 83595, 98737, 28267, 58693 #### [facility] [address] [place] [address], [facility] Cholesterol.total/Cho lesterol in HDL [Mass ratio] 2.0 {ratio} Normal .0-4.5 [facility] Comment on above: Performed By: #### 4 5506, 43596, 01014, 18606, 87096, 92957 #### [facility] [address] NON-HDL CHOLESTEROL 43 mg/dL Normal [facility] Comment on above: Performed By: #### 4 5506, 38423, 19278, 62892, 09798, 63844 #### [facility] [address] Triglyceride [Mass/Vol] 47 mg/dL Normal 40-149 [facility] Comment on above: Result Comment: TRIG LYCERIDE REFERENCE RANGE: 20 YEARS AND OLDER CARDIOVASCULAR RISK LESS THAN 150 mg/dl LOW RISK 150 TO 199 mg/dl BORDERLINE RISK 200 mg/dl AND GREATER HIGH RISK Performed By: #### 4 5506, 93700, 99598, 38796, 60025, 55962 #### [facility] [address] [place] [address], [facility] VLDL CHOL 9 mg/dL Normal 0-40 [facility] Comment on above: Performed By: #### 4 5506, 99520, 74224, 00010, 29623, 39269 #### [facility] [address] [place] [address], [facility] MAGNESIUM BLOODon 04-11-2021 Magnesium [Mass/Vol] 1.3 mg/dL Low 1.9-2.7 [facility] Comment on above: Performed By: #### 4 5506, 05030, 08945, 66297, 37388, 60154 #### [facility] [address] [place] [address], [facility] PHOSPHORUS BLOODon Phosphate [Mass/Vol] 2.6 mg/dL Normal 2.5-5.0 [facility] Comment on above: Performed By: #### 4 5506, 00093, 07825, 73848, 61104, 93850 #### [facility] 3000 [facility]. [address] TACROLIMUSon 04-11-2021 Tacrolimus (Bld) [Mass/Vol] 8.3 ng/mL Normal 5.0-20.0 [facility] Comment on above: Result Comment: The [employer] TUBE BLOWER Tacrolimus assay is a delayed one-step immunoassay for the quantitative determination of tacrolimus in human whole blood using the chemiluminescent microparticle immunoassay (CMIA) technology with flexible assay protocols, referred to as Chemiflex. Performed By: #### 4 5506, 05443, 27818, 37167, 70669, 85671 #### [facility] 3000 [facility]. [address] URIC ACID BLOODon 04-11-2021 Urate [Mass/Vol] 8.4 mg/dL High 4.4-7.6 [facility] Comment on above: Performed By: #### 4 5506, 27221, 60628, 77327, 52139, 78193 #### [facility] [address] [facility]. [address] BK VIRUS QUANTITATION FOR PL ASMAon 02-16-2021 BKV Plasma Quantitation by PCR Not detected Normal [facility] Comment on above: Result Comment: Meth od: BK virus was measured by quantitative polymerase chain reaction using a fluorescent hydrolysis probe targeting the polyomavirus BK [employer]-1 gene. The lower limit of quantitation of the assay is 500 copies of BK genome per milliliter of plasma or urine, and any detectable BK DNA below that level is reported as: Detected, <500 copies/ml. Serial BK virus measurement can be used to monitor disease activity. (Reference: Katina hernandez. J CLIN MICRO 2004; 42:5900-0058). This test was developed and its performance characteristics determined by the [facility] Molecular Diagnostics Laboratory. It has not been approved by the [place] Food and Drug Administration. However, such approval is not required for clinical implementation, and test results have been shown to be clinically useful. This laboratory is CAP accredited and CLIA certified to perform high complexity testing. Performed By: #### 4 5506, 50335, 00436, 87756, 11632, 94691 #### [facility] [address] BKV Plasma Quantitation Log by PCR Not detected Normal [facility] Comment on above: Performed By: #### 4 5506, 42379, 86675, 83874, 53102, 77893 #### [facility] [address] [facility]. [address] CBC W/DIFFon 02-16-2021 ABS IMM GRANS 0.1 10*3/uL Normal 0.0-0.2 [facility] Comment on above: Performed By: #### 4 5506, 98666, 99924, 51321, 95807, 00554 #### [facility] [address] ABS NEUTROPHILS 5.8 10*3/uL Normal 1.6-7.6 [facility] Comment on above: Performed By: #### 4 5506, 05989, 67094, 74145, 78462, 56512 #### [facility] [address] [facility] [place] [address], [facility] Basophils (Bld) [#/Vol] 0.0 10*3/uL Normal 0.0-0.2 [facility] Comment on above: Performed By: #### 4 5506, 81116, 23186, 49967, 19240, 82085 #### [facility] [address] [facility]. [address] Basophils/100 WBC (Bld) 0.4 % Normal 0.0-1.0 [facility] Comment on above: Performed By: #### 4 5506, 83688, 78899, 66985, 51327, 08255 #### [facility] [address] [place] [address], [facility] Eosinophils (Bld) [#/Vol] 0.3 10*3/uL Normal 0.0-0.5 [facility] Comment on above: Performed By: #### 4 5506, 34510, 71551, 81449, 44494, 30940 #### [facility] [address] [place] [address], [facility] Eosinophils/100 WBC (Bld) 3.5 % Normal 0.0-6.0 [facility] Comment on above: Performed By: #### 4 5506, 20874, 17397, 89464, 44622, 92057 #### [facility] [address] Erythrocyte distribution width (RBC) [Ratio] 13.6 % Normal 11.5-15.0 [facility] Comment on above: Performed By: #### 4 5506, 58404, 12571, 84048, 54491, 32243 #### [facility] [address] Hematocrit (Bld) [Volume fraction] 34.1 % Low 39.0-50.0 [facility] Comment on above: Performed By: #### 4 5506, 24695, 52627, 82246, 62636, 21803 #### [facility] [address] Hemoglobin (Bld) [Mass/Vol] 11.6 g/dL Low 13.0-17.0 [facility] Comment on above: Performed By: #### 4 5506, 74075, 66177, 31776, 84666, 81624 #### [facility] [address] IMMATURE GRANS 0.8 % Normal 0.0-1.0 [facility] Comment on above: Performed By: #### 4 5506, 39200, 62810, 67997, 71656, 66004 #### [facility] [address] [place] [address], [facility] Lymphocytes (Bld) [#/Vol] 0.7 10*3/uL Low 1.2-4.0 [facility] Comment on above: Performed By: #### 4 5506, 84848, 80675, 58820, 83522, 09084 #### [facility] [address] Lymphocytes/100 WBC (Bld) 9.2 % Low 20.0-45.0 [facility] Comment on above: Performed By: #### 4 5506, 83852, 50589, 73904, 50040, 21786 #### [facility] [address] MCH (RBC) [Entitic mass] 29.5 pg Normal 27.0-33.0 [facility] Comment on above: Performed By: #### 4 5506, 12232, 25848, 90644, 39485, 76015 #### [facility] [address] MCHC (RBC) [Mass/Vol] 34.0 g/dL Normal 32.0-35.0 [facility] Comment on above: Performed By: #### 4 5506, 83423, 34901, 03595, 25356, 66056 #### [facility] [address] [place] [address], [facility] MCV (RBC) [Entitic vol] 86.8 fL Normal 82.0-98.0 [facility] Comment on above: Performed By: #### 4 5506, 36515, 23289, 22873, 03023, 53894 #### [facility] [address] [facility] [place] [address], [facility] Monocytes (Bld) [#/Vol] 0.8 10*3/uL Normal 0.1-1.0 [facility] Comment on above: Performed By: #### 4 5506, 96677, 04506, 17406, 78080, 23504 #### [facility] [address] [facility] [place] [address], [facility] MONOS 10.3 % Normal 5.0-12.0 [facility] Comment on above: Performed By: #### 4 5506, 01035, 83799, 10039, 58421, 75769 #### [facility] [address] [facility] [place] [address], [facility] Neutrophils/100 WBC (Bld) 75.8 % High 40.0-72.0 [facility] Comment on above: Performed By: #### 4 5506, 41662, 85769, 31484, 03100, 13943 #### [facility] [address] [facility]. [address] Nucleated RBC/100 WBC (Bld) [Ratio] 0 % Normal 0-0 [facility] Comment on above: Performed By: #### 4 5506, 69136, 95465, 10269, 56980, 03109 #### [facility] [address] [facility] [place] [address], [facility] PLAT CNT 256 10*3/uL Normal 150-400 [facility] Comment on above: Performed By: #### 4 5506, 54247, 43476, 95043, 56578, 32229 #### [facility] [address] [place] [address], [facility] RBC (Bld) [#/Vol] 3.93 10*6/uL Low 4.20-5.70 [facility] Comment on above: Performed By: #### 4 5506, 59938, 29017, 44171, 78511, 60015 #### [facility] [address] [place] [address], [facility] WBC (Bld) [#/Vol] 7.65 10*3/uL Normal 4.00-10.60 [facility] Comment on above: Performed By: #### 4 5506, 35564, 31448, 79097, 32999, 05020 #### [facility] [address] [place] [address], [facility] COMP METABOLIC PANELon 02-16 Albumin [Mass/Vol] 4.6 g/dL Normal 3.5-5.7 [facility] Comment on above: Performed By: #### 0 0121, 34026, 14479, 12827, 92934, 67157, 41788, 17356 #### [facility] [address] [place] [address], [facility] ALKALINE PHOSPH 136 IU/L High 34-104 [facility] Comment on above: Performed By: #### 0 0121, 28289, 89446, 27165, 81923, 06310, 02303, 28645 #### [facility] [address] [place] [address], [facility] ALT [Catalytic activity/Vol] 22 U/L Normal 7-52 [facility] Comment on above: Performed By: #### 0 0121, 18765, 14585, 32558, 71171, 86768, 88006, 12672 #### [facility] [address] [place] [address], [facility] AST [Catalytic activity/Vol] 18 U/L Normal 13-39 [facility] Comment on above: Performed By: #### 0 0121, 90581, 29063, 63828, 34983, 32388, 88130, 06790 #### [facility] [address] [place] [id number], [facility] Bilirubin [Mass/Vol] 0.5 mg/dL Normal 0.3-1.0 [facility] Comment on above: Performed By: #### 0 0121, 92956, 04288, 24901, 46066, 46369, 36153, 91225 #### [facility] [address] [place] [address], [facility] Calcium [Mass/Vol] 10.5 mg/dL High 8.6-10.3 [facility] Comment on above: Performed By: #### 0 0121, 49741, 70470, 52082, 26517, 58069, 53789, 16960 #### [facility] [address] [place] [address], [facility] Chloride [Moles/Vol] 94 mmol/L Low 98-107 [facility] Comment on above: Performed By: #### 0 0121, 31587, 38877, 86142, 76015, 58425, 03700, 10830 #### [facility] [address] [place] [address], [facility] CO2 [Moles/Vol] 28 mmol/L Normal 21-31 [facility] Comment on above: Performed By: #### 0 0121, 46706, 41120, 05825, 63373, 87792, 42359, 59153 #### [facility] [address] [place] [address], [facility] Creatinine [Mass/Vol] 0.93 mg/dL Normal 0.70-1.30 [facility] Comment on above: Performed By: #### 0 0121, 57254, 60054, 44163, 45465, 68574, 57353, 72129 #### [facility] [address] [place] [address], [place] GFR/1.73 sq M.predicted among blacks MDRD (S/P/Bld) [Vol rate/Area] mL/min/{1.73_m2} Normal >60 [facility] Comment on above: Performed By: #### 0 0121, 75353, 14172, 31670, 52941, 54008, 28648, 96569 #### [facility] [address] [place] [address], [facility] GFR/1.73 sq M.predicted among non-blacks MDRD (S/P/Bld) [Vol rate/Area] mL/min/{1.73_m2} Normal >60 [facility] Comment on above: Performed By: #### 0 0121, 38003, 32108, 16499, 25566, 37421, 20675, 55440 #### [facility] [address] [place] [address], [facility] Glucose [Mass/Vol] 147 mg/dL High 70-100 [facility] Comment on above: Performed By: #### 0 0121, 57223, 95475, 88377, 99269, 77863, 75324, 01754 #### [facility] [address] [place] [address], [facility] Potassium [Moles/Vol] 4.6 mmol/L Normal 3.5-5.1 [facility] Comment on above: Performed By: #### 0 0121, 73544, 17423, 61471, 51548, 50339, 01170, 15718 #### [facility] [address] [place] [address], [facility] Protein [Mass/Vol] 7.2 g/dL Normal 6.0-8.3 [facility] Comment on above: Performed By: #### 0 0121, 90622, 30291, 47402, 85026, 45445, 08181, 07970 #### [facility] [address] [place] [address], [place] Sodium [Moles/Vol] 129 mmol/L Low 136-145 [facility] Comment on above: Performed By: #### 0 0121, 26131, 25220, 61814, 56961, 40035, 71665, 08757 #### [facility] [address] [place] [address], [facility] Urea nitrogen [Mass/Vol] 15 mg/dL Normal 7-25 [facility] Comment on above: Performed By: #### 0 0121, 54274, 75741, 15257, 78992, 33427, 21328, 81237 #### [facility] [address] [place] [address], [facility] DIRECT BILIon 02-16-2021 Bilirubin.direct [Mass/Vol] 0.2 mg/dL Normal 0.0-0.2 [facility] Comment on above: Performed By: #### 4 5506, 21731, 53521, 88414, 04487, 79806 #### [facility] [address] [place] [address], [facility] HEMOGLOBIN A1Con 02-16-2021 Glucose [Moles/Vol] 154 mmol/L Normal [facility] Comment on above: Performed By: #### 4 5506, 06167, 64799, 61985, 42264, 66909 #### [facility] [address] [place] [address], [facility] HbA1c (Bld) [Mass fraction] 7.0 % High 4.0-6.0 [facility] Comment on above: Performed By: #### 4 5506, 48352, 30350, 06680, 85346, 05318 #### [facility] [address] [place] [address], [facility] LIPID PROFILEon 02-16-2021 Cholesterol [Mass/Vol] 78 mg/dL Low 120-200 [facility] Comment on above: Result Comment: CHOL ESTEROL REFERENCE RANGE: 20 YEARS AND OLDER CARDIOVASCULAR RISK Less than 200 mg/dl Low Risk 200 to 239 mg/dl Borderline Risk 240 mg/dl and greater High Risk Performed By: #### 0 0121, 26595, 02830, 11727, 53964, 72877, 36802, 61389 #### [facility] [address] [place] [address], [facility] Cholesterol in HDL [Mass/Vol] 41 mg/dL Normal 23-92 [facility] Comment on above: Result Comment: Slig ht variation in normal range could be due to gender and/or age. HDL CHOLESTEROL REFERENCE RANGE: 20 years and older Cardiovascular Risk > or =60 mg/dL Desirable 40 TO 59 mg/dL Low Risk <40 mg/dL High Risk Performed By: #### 0 0121, 26634, 82776, 43605, 42761, 74229, 14529, 05102 #### [facility] [address] [place] [address], [place] Cholesterol in LDL [Mass/Vol] 28 mg/dL Normal 0-130 [facility] Comment on above: Result Comment: LDL IS A CALCULATION LDL IS ONLY VALID IF THE TRIG IS LESS THAN 400. Performed By: #### 0 0121, 89948, 66963, 71861, 67328, 35321, 21446, 22391 #### [facility] [address] [place] [address], [place] Cholesterol.total/Cho lesterol in HDL [Mass ratio] 1.9 {ratio} Normal .0-4.5 [facility] Comment on above: Performed By: #### 0 0121, 03111, 91307, 85064, 01245, 29073, 07397, 90565 #### [facility] [address] [place] [address], [place] NON-HDL CHOLESTEROL 37 mg/dL Normal [facility] Comment on above: Performed By: #### 0 0121, 52593, 83231, 06241, 83904, 33933, 11088, 78607 #### [facility] [address] [place] [address], [place] Triglyceride [Mass/Vol] 44 mg/dL Normal 40-149 [facility] Comment on above: Result Comment: TRIG LYCERIDE REFERENCE RANGE: 20 YEARS AND OLDER CARDIOVASCULAR RISK LESS THAN 150 mg/dl LOW RISK 150 TO 199 mg/dl BORDERLINE RISK 200 mg/dl AND GREATER HIGH RISK Performed By: #### 0 0121, 25700, 01885, 52073, 27587, 63435, 74415, 47429 #### [facility] [address] [place] [address], [facility] VLDL CHOL 9 mg/dL Normal 0-40 [facility] Comment on above: Performed By: #### 0 0121, 61312, 67683, 28332, 59184, 53766, 85580, 60474 #### [facility] [address] [place] [address], [facility] MAGNESIUM BLOODon 02-16-2021 Magnesium [Mass/Vol] 1.5 mg/dL Low 1.9-2.7 [facility] Comment on above: Performed By: #### 4 5506, 97038, 38781, 03297, 85695, 27078 #### [facility] [address] [place] [address], [facility] PHOSPHORUS BLOODon Phosphate [Mass/Vol] 2.4 mg/dL Low 2.5-5.0 [facility] Comment on above: Performed By: #### 0 0121, 53438, 62349, 05305, 91668, 65828, 95642, 23824 #### [facility] 3000 [facility]. [address] PROSPERAon 02-16-2021 PROSPERA KIT Results to be mailed directly to physician's office by reference lab. Normal [facility] Comment on above: Result Comment: Test performed by [id number] [place] [address] No result expected. For billing and tracking purposes only. Specimen collected for transplant patient and sent to requesting hospital per Dr instructions. No charge. Performed By: #### 4 5506, 67464, 91107, 64187, 20811, 41425 #### [facility] [address] RESULT Results to be mailed directly to physician's office by reference lab. Normal [facility] Comment on above: Performed By: #### 4 5506, 53744, 09301, 74409, 65653, 93068 #### [facility] [address] [facility] [place] [address], [facility] PTH INTACTon 02-16-2021 PTH INTACT 123 pg/mL High 12-88 [facility] Comment on above: Performed By: #### 4 [id number], [id number], 91952, 64199, 46282, 91673 #### [facility] [address] SINGLE ANTIGEN CLASS 1on METHOD Class I Single Antigen Normal [facility] Comment on above: Order Comment: Some of [...] to frequency. Performed By: #### 4 [id number], 85090, 30457, 38090, 04399, 06858 #### [facility] [address] SINGLE ANTIGEN CLASS 2on COMMENTS Normal [facility] Comment on above: Order Comment: Some of [...] probable, due to frequency. Result Comment: Sim ntlaila specificites added to the watch list. Class II Antigen Microbeads Performed By: #### 4 5506, 46598, 02602, 49519, 96047, 14992 #### [facility] 3000 [facility]. [address] Result Comment: No C lass I donor specific antibody identified Class I Antigen Microbeads METHOD Class II Single Antigen Normal [facility] Comment on above: Order Comment: Some [...] to frequency. Performed By: #### 4 5506, 79854, 43687, 47131, 93501, 02876 #### [facility] 3000 [facility]. [address] SIGNED BY Normal [facility] Comment on above: Order Comment: Some of [...] frequency. Result Comment: Jose A Lara MS,CHT(IRINEO),MT(ASCP) Digital Manager, Transplant Immunology Performed By: #### 4 5506, 14554, 84028, 99574, 67771, 38640 #### [facility] [address] TACROLIMUSon 02-16-2021 Tacrolimus (Bld) [Mass/Vol] 7.0 ng/mL Normal 5.0-20.0 [facility] Comment on above: Result Comment: The GARCIA TUBE BLOWER Tacrolimus assay is a delayed one-step immunoassay for the quantitative determination of tacrolimus in human whole blood using the chemiluminescent microparticle immunoassay (CMIA) technology with flexible assay protocols, referred to as Chemiflex. Performed By: #### 4 5506, 02139, 61490, 63792, 81597, 03703 #### [facility] [address] [place] [address], [facility] TESTOSTERONE, FREE+SHBG+TOTA L ILon 02-16-2021 [place] Normal [facility] Comment on above: Result Comment: Test Performed by [employer] [address] [place] [address] [id number] - Released 02/16/2021 18:49 SEX HORM BIND GLOB 52 nmol/L Normal 11-80 [facility] Testosterone [Mass/Vol] 399 ng/dL Normal 220-1000 [facility] TESTOSTERONE, FREE 60.0 pg/mL Normal 47-244 [facility] Comment on above: Result Comment: The concentration of free testosterone is derived from a mathematical expression based on the constant for the binding of testosterone to albumin and/or sex hormone binding globulin. URIC ACID BLOODon 02-16-2021 Urate [Mass/Vol] 8.0 mg/dL High 4.4-7.6 [facility] Comment on above: Performed By: #### 0 0121, 18178, 99441, 37351, 66432, 76809, 67883, 82127 #### [facility] [address] [place] [address], [facility] VITAMIN D 25-HYDROXYon 02-16 VITAMIN D 25-OH 35.1 ng/mL Normal 30.0-80.0 [facility] Comment on above: Result Comment: >80. 0 Toxicity possible Performed By: #### 4 5506, 81332, 63477, 49279, 37154, 31341 #### [facility] [address] [place] [address], [facility] Vital Signs Date Time Vital Sign Value Performing Clinician Facility 02-16-2024 08:19-0400 Body height 167.6 cm Jericho Mccarthy MD Work Phone: [facility] 02-16-2024 08:19-0400 Body mass index (BMI) [Ratio] 24.37 kg/m2 Jericho Mccarthy MD Work Phone: [facility] 02-16-2024 08:19-0400 Body temperature 97.5 [degF] Jericho Mccarthy MD Work Phone: [facility] 02-16-2024 08:19-0400 Body weight 68.49 kg Jericho Mccarthy MD Work Phone: [facility] 02-16-2024 08:19-0400 Diastolic blood pressure 60 mm[Hg] Jericho Mccarthy MD Work Phone: [facility] 02-16-2024 08:19-0400 Heart rate 57 /min Jericho Mccarthy MD Work Phone: [facility] 02-16-2024 08:19-0400 Respiratory rate 18 /min Jericho Mccarthy MD Work Phone: [facility] 02-16-2024 08:19-0400 SaO2% (BldA) [Mass fraction] 98 % Jericho Mccarthy MD Work Phone: [facility] 02-16-2024 08:19-0400 Systolic blood pressure 120 mm[Hg] Jericho Mccarthy MD Work Phone: [facility] 03-05-2022 09:30-0400 Diastolic blood pressure 74 mm[Hg] MD Jericho Mccarthy Work Phone: [facility] 03-05-2022 09:30-0400 Heart rate 58 /min MD Jericho Mccarthy Work Phone: [facility] 03-05-2022 09:30-0400 Respiratory rate 18 /min MD Jericho Mccarthy Work Phone: [facility] 03-05-2022 09:30-0400 SaO2% (BldA) [Mass fraction] 99 % MD Jericho Mccarthy Work Phone: [facility] 03-05-2022 09:30-0400 Systolic blood pressure 133 mm[Hg] MD Jericho Mccarthy Work Phone: [facility] 03-05-2022 07:01-0400 Body height 167.64 cm MD Jericho Mccarthy Work Phone: [facility] 03-05-2022 07:01-0400 Body temperature 97.9 [degF] MD Jericho Mccarthy Work Phone: [facility] 03-05-2022 07:01-0400 Body weight 74.84 kg MD Jericho Mccarthy Work Phone: [facility] 01-21-2022 10:30-0400 Body height 167.64 cm Tj Garciaormack Other [employer] Other 01-21-2022 10:30-0400 Body mass index (BMI) [Ratio] 26.47 kg/m2 Tj Garciaormack Other [employer] Other 01-21-2022 10:30-0400 Body weight 74.39 kg Tj Maira Other [facility] Other 01-21-2022 10:30-0400 Diastolic blood pressure 71 mm[Hg] Tj Maira Other [employer] Other 01-21-2022 10:30-0400 Systolic blood pressure 148 mm[Hg] Tj Maira Other [employer] Other Encounters Encounter Date Encounter Type Care Provider Facility Start: 02-16-2024 End: 02-16-2024 Bamboo flowsheet Jericho Mccarthy MD Work Phone: [facility] Start: 02-16-2024 End: 02-16-2024 Bamboo flowsheet Jericho Mccarthy MD Work Phone: [facility] Start: 02-16-2024 End: 02-16-2024 Office outpatient visit 15 minutes Jericho Mccarthy MD Work Phone: [facility] Comment on above: Type 2 diabetes ruba itus with hyperglycemia, with long-term current use of insulin (CMS/HCC) (Primary Dx); Essential hypertension, benign (CMS/HCC); Peripheral vascular disease (CMS/HCC); Type 2 diabetes mellitus with diabetic chronic kidney disease (CMS/HCC); Chronic kidney disease, stage 2 (mild); Type 2 diabetes mellitus with diabetic peripheral angiopathy without gangrene (CMS/HCC) Start: 02-16-2024 End: 02-16-2024 ambulatory JERICHO MCCARTHY Not Available Start: 02-11-2024 End: 02-11-2024 ambulatory SANTANA [facility] Start: 02-02-2024 End: 02-02-2024 ambulatory RAJESH Mariel TRAORE Not Available Start: 10-31-2023 End: 10-31-2023 ambulatory SANTANA [facility] Start: 08-25-2023 End: 08-25-2023 ambulatory JERICHO MCCARTHY Not Available Start: 07-09-2023 End: 07-09-2023 ambulatory PRICE MARTINES [facility] Start: 05-22-2023 End: 05-22-2023 ambulatory JERICHO MCCARTHY Not Available Start: 05-19-2023 End: 05-19-2023 ambulatory JERICHO ABAD [facility] Start: 04-28-2023 Evaluation and management of inpatient ESTHER GARDUNO [facility] Start: 04-28-2023 Evaluation and management of inpatient PATRICIA SCHULZ [facility] Start: 04-27-2023 End: 04-30-2023 Evaluation and management of inpatient MENDY CLEMONS [facility] Start: 04-22-2023 End: 04-22-2023 ambulatory BENJA MCGHEE [facility] Start: 10-03-2022 End: 10-04-[address] DOCTOR MCCABE Facility:[facility] Start: 08-30-2022 End: 08-31-[address] DOCTOR MCCABE Facility:[facility] Start: 08-01-2022 End: 08-02-[address] DOCTOR MCCABE Facility:[facility] Start: 07-04-2022 End: 07-05-[address] DOCTOR MCCABE Facility:[facility] Start: 05-23-2022 End: 05-24-[address] DOCTOR MCCABE Facility:[facility] Start: 04-30-2022 End: 05-01-[address] DOCTOR MCCABE Facility:[facility] Start: 04-03-2022 End: 04-04-[address] DOCTOR MCCABE Facility:[facility] Start: 03-08-2022 End: 03-09-[address] NAGA BOSCH Facility:[facility] Start: 03-05-2022 End: 03-05-2022 ambulatory Tj Wells Facility:[facility] Start: 03-05-2022 End: 03-05-2022 Admission to same day surgery center MD Jericho Mccarthy Work Phone: [facility] Start: 03-05-2022 End: 03-05-2022 ambulatory MD Jericho Mccarthy Work Phone: [facility] Work Phone: Start: 03-01-2022 End: 03-01-2022 ambulatory Tj Wells Facility:[facility] Start: 03-01-2022 End: 03-01-2022 ambulatory MD Jericho Mccarthy Work Phone: [facility] Work Phone: Start: 03-01-2022 End: 03-01-2022 Patient encounter procedure MD Jericho Mccarthy Work Phone: [facility] Start: 02-01-2022 End: 02-02-[address] DOCTOR MCCABE Facility:[facility] Start: 01-21-2022 End: 01-21-2022 ambulatory Tj Wells Other [facility] Other Start: 01-21-2022 Office outpatient ne w 45 minutes Tj Wells [facility] Start: 01-04-2022 End: 01-05-[address] NAGA BOSCH Facility:[facility] Start: 11-30-2021 End: 12-01-[address] DOCTOR MCCABE Facility:[facility] Start: 11-14-2021 End: 11-14-[address] JERICHO MCCARTHY Facility:[facility] Procedures Date Procedure Procedure Detail Performing Clinician Start: 04-16-2023 End: 08-25-2023 History of renal transplant Kidney replaced by transplant Jericho Mccarthy MD Work Phone: Start: 03-05-2022 End: 03-05-2022 Colonoscopy MD Jericho Mccarthy Work Phone: Start: 10-31-2021 History of renal transplant History of renal transplant Jericho Mccarthy MD Work Phone: Start: 01-07-2019 Echocardiography Start: 11-19-2018 Echocardiography Start: 07-08-2017 Colonoscopy Jericho Mccarthy MD Work Phone: SARS Antigen (LFIA) MD Jericho Mccarthy Work Phone: Plan of Treatment Date Care Activity Detail Author Start: 03-05-2032 Screening for malign ant neoplasm of colon [facility] Start: 11-25-2025 Glaucoma screening Diabetes: R etinopathy Screening [facility] Start: 08-10-2025 Urine screening for protein Diabetes: Urine Protein Screening [facility] Comment on above: Postponed from 07/09 (Other Medical Reasons) Start: 02-03-2025 End: 02-03-2025 Patient encounter procedure 02/03/2025 9:00 AM EDT Office Visit [facility] [address] [place] [address] Rajesh Traore MD [address] [place], [place] [id number] [facility] Start: 08-05-2024 Hemoglobin A1c measurement Diabetes: Hemoglobin A1C [facility] Start: 03-11-2024 End: 03-11-2024 Patient encounter procedure 03/11/2024 9:15 AM EDT Office Visit [facility] [address] [place] [phone] Jericho Mccarthy MD [address] [place] [phone] [facility] Start: 02-16-2024 End: 02-16-2024 Patient encounter procedure 02/16/2024 8:15 AM EDT Office Visit [facility] [address] [place] [address] Jericho Mccarthy MD [address] [place] [address] Arrived [facility] Comment on above: Arrived Start: 01-11-2024 Influenza vaccination Influenza Vacc ine (#1) [facility] Start: 10-07-2023 Hemoglobin A1c measurement Diabetes: Hemoglobin A1C [facility] Start: 03-05-2022 [facility] Start: 01-31-2017 Pneumococcal Vaccine : 65+ Years (2 of 2 - PCV) Pneumococcal Vaccine: 65+ Years (2 of 2 - PCV) [facility] Start: 1950 Medicare Annual Wellness (AWV) Medicare Annual Wellness (AWV) [facility] Start: 1950 Screening for malign ant neoplasm of colon [facility] Patient Education [facility] Work Phone: Immunizations Immunization Date Immunization Notes Care Provider Fa cili 02-18-2023 Influenza, High-dose Seasonal, Quadrivalent, Preservative Free Jericho Mccarthy MD Work Phone: [facility] 02-18-2023 influenza virus vaccine, unspecified formulation Jericho Mccarthy MD Work Phone: [facility] 04-30-2021 COVID-19 mRNA Bivale nt Booster (Pfizer) MD Jericho Mccarthy Work Phone: [facility] 04-30-2021 Influenza, Seasonal, Quadrivalent, Adjuvanted Jericho Mccarthy MD Work Phone: [facility] 08-01-2020 COVID-19 mRNA, Comirnaty (Pfizer) MD Jericho Mccarthy Work Phone: [facility] 07-12-2020 COVID-19 mRNA, Comirnaty (Pfizer) MD Jericho Mccarthy Work Phone: [facility] 02-09-2019 influenza, injectabl e, quadrivalent, contains preservative Jericho Mccarthy MD Work Phone: [facility] 02-13-2017 influenza, seasonal, injectable Tj Wells Other [facility] Other 02-09-2017 influenza virus vaccine, unspecified formulation Jericho Mccarthy MD Work Phone: [facility] 06-27-2016 influenza, seasonal, injectable Tj Wells Other [facility] Other 02-01-2016 pneumococcal polysaccharide vaccine, 23 valent Tj Garciaormack Other [employer] Other Payers Date Payer Category Payer Private Health Insurance [employer] [place] [employer] [id number] 2023-Present [address] [place] [address] [id number] 2023 Private Health Insurance [id number] 2022 Unknown [facility] [id number] 2022-Present [address] [place] [address] [id number] 2022 Self-pay [id number] 2022 Unknown [id number] 2009 Medicare MEDICARE MEDICAR E PART B [id number] 2009-[place] [address] Medicare [id number] 1959 Medicare [id number] 1959 Private Health Insurance [id number] 2.16.840.1.761589.19 1951 Unknown [id number] 2.16.840.1.128022.3.579. 2.593 1951 Unknown [id number] 2.16.840.1.786351.3.579. 2.593 1951 Unknown [id number] 2.16.840.1.942624.3.579. 2.593 1951 Unknown [id number] 2.16.840.1.648668.3.579. 2.593 1951 Unknown [id number] 2..840.1.941969.3.579. 2.593 1951 Unknown [id number] 2.16.840.1.659877.3.579. 2.593 1951 Unknown [id number] 2.16.840.1.098350.3.579. 2.593 1951 Unknown [id number] 2.16.840.1.805582.3.579. 2.593 1951 Unknown [id number] 2.16.840.1.407196.3.579. 2.593 1951 Unknown [id number] 2.16.840.1.903051.3.579. 2.593 1951 Unknown [id number] 2.16.840.1.056604.3.579. 2.593 1951 Unknown [id number] 2.16.840.1.369959.3.579. 2.593 1951 Unknown [id number] 2.16.840.1.694633.3.579. 2.1259 1951 Unknown [id number] 2.16.840.1.093257.3.579. 2.1259 1951 Unknown [id number] 2.16.840.1.665943.3.579. 2.1259 1951 Unknown [id number] 2.16.840.1.552559.3.579. 2.1259 Unknown [id number] 2.16.840.1.631419.3.579. 2.531 Unknown [id number] 2.16.840.1.251092.3.579. 2.531 Social History Date Type Detail Facility Unknown if ever smoked [facility] Other Start: 02-02-2024 End: 02-16-2024 Sex Assigned At [employer] Other Start: 11-11-2019 End: 04-15-2023 Tobacco smoking status ARIS Ex-smoker (finding) [facility] Start: 1950 Sex Assigned At Male F [facility] Start: 05-12-1980 End: 05-12-1992 History of tobacco use Current smoker [facility] Start: 05-12-1980 End: 05-12-1992 History of tobacco use Cigarette Smoker [facility] Start: 04-15-2023 Tobacco use and exposure Smokeless tobacco non-user [facility] Start: 02-02-2024 End: 02-16-2024 History of Social function [facility] Start: 1950 Sex assigned at Not on file [facility] Medical Equipment Procedure Code Equipment Code Equipment Original Text Equipment Identifier Dates Creation or revision of arteriovenous fistula GRAFT ARTEGRAFT 6MM X 40CM FDA Start: 01-14-2017 Creation or revision of arteriovenous fistula GRAFT ARTEGRAFT 6MM X 40CM FDA Start: 01-14-2017 Goals Date Patient Goal Desired Activity /State Clinical Notes 09-09-2009 to 02-16-2024 Jericho Mccarthy MD - 02/16/2024 8:49 AM Donna Mccarthy MD - 02/16/2024 8:49 AM Donna Mccarthy MD - 02/16/2024 8:48 AM Donna Mccarthy MD - 02/16/2024 8:15 AM EDT Note Date & Type Note Facility 02-16-2024 History of Present illness Narrative Associated Problem(s): Peripheral vascular disease (CMS/HCC) Follow with specialists. Associated Problem(s): Type 2 diabetes mellitus with hyperglycemia, with long-term current use of insulin ([facility]) BS controlled and at times low. A1C 5.6 and decrease basaglar to 15 units daily. Stick to ADA diet and limit carbs. Associated Problem(s): Essential hypertension, benign ([facility]/HCC) BP controlled and monitor PRN. Images from the original note were not included. Subjective Patient ID: Roger Suarez is a 73 y.o. male who presents for Follow-up (6 M). Follow up DM and HTN. Patient feels well today. BS well controlled around 100. Occasionally elevated and sometimes lower around 60. Recent A1C 5.6. Tries to eat well and stick to ADA diet. Denies signs of elevated BS such as polyuria, polyphagia or polydipsia. Checking BP PRN and typically controlled. BP normal today. Taking medication daily and tolerating without side effects. Following with transplant team and renal function doing well. Review of Systems Constitutional: Negative for fatigue. Respiratory: Negative for cough, shortness of breath and wheezing. Cardiovascular: Negative for chest pain and palpitations. Gastrointestinal: Negative for abdominal pain, diarrhea, nausea and vomiting. Genitourinary: Negative for dysuria. Objective Physical Exam Constitutional: General: He is not in acute distress. Appearance: Normal appearance. HENT: Head: Normocephalic. Right Ear: Tympanic membrane and ear canal normal. Left Ear: Tympanic membrane and ear canal normal. Eyes: Extraocular Movements: Extraocular movements intact. Pupils: Pupils are equal, round, and reactive to light. Cardiovascular: Rate and Rhythm: Normal rate and regular rhythm. Heart sounds: No murmur heard. No friction rub. No gallop. Pulmonary: Breath sounds: Normal breath sounds. No wheezing, rhonchi or rales. Abdominal: General: Bowel sounds are normal. There is no distension. Palpations: Abdomen is soft. Tenderness: There is no abdominal tenderness. There is no guarding or rebound. Musculoskeletal: Left lower leg: No edema. Neurological: Mental Status: He is alert. Assessment/Plan Problem List Items Addressed This Visit Essential hypertension, benign (CMS/HCC) BP controlled and monitor PRN. Type 2 diabetes mellitus with hyperglycemia, with long-term current use of insulin (CMS/HCC) - Primary BS controlled and at times low. A1C 5.6 and decrease basaglar to 15 units daily. Stick to ADA diet and limit carbs. Relevant Medications insulin glargine (Basaglar KwikPen) 100 UNIT/ML pen documented in this encounter [facility] 01-19-2024 Note Mg 1.2 reviewed with PRUDENCIO Chou. Patient was previously refusing infusion for Magnesium and note from visit 10/30 was not complete. Per PRUDENCIO Chou on [employer] secure chat patient is to be on Amiliride 5mg daily, take Maalox and Mylanta with Mg. Phone call to patient who had stopped Amiliride in error and has been continuing to take Amlodipine which was discontinued. Patient requested script for Amiliride to be sent to [facility] in [place]. Reviewed magnesium rich foods with patient. Patient also states he is taking 2400 mg of magnesium daily. Instructed patient to get repeat labs this month. Patient verbalizes understanding. Also mailed standing lab order for monthly BK to patient to have added to standing labs. [facility] 10-31-2023 Note Patient notified abo ut mag level of 1.3, he stated he saw the [employer] here today and came up with a plan because he does not want an infusion. [facility] 10-31-2023 Note Transplant Clinic Patient : Roger [...] finger stick at home. On 05/14/[address] Root: pt to consistently take Mag supplement and restart Amlodipine and continue amiloride for low Mag. Pt inpatient 04/27/23 to 04/30/23 for DAVID/Hyponatrimea nd uncontrolled DM. Pt seeing PCP who treats DM next week. Instructed patient to consider Research Engineer locally to him: quan del castillo. Pt Hx: end-stage renal disease secondary to [...] lb) Physical Exam Physical Exam: Constitutional: Roger Suarez in NO acute distress Psychiatric: Normal [...] GLU 158 (H) 10/31/2021 0837 CALCIUM 9.1 (more content not included)... [facility] 07-09-2023 Note 07/10/23 Chief Complaint Patient presents with Kidney Follow-up Patient has no major concerns today PCP: Jericho Mccarthy MD Txp Referring: Preferred Pharmacy: [id number] [place], [place] - [address] [facility] [address] [facility] [address] [facility] [address] [address] [facility] [address] [place] [address] [address] [place] [address] Subjective Visit Vitals BP 124/56 (BP Location: [...] Dose Status aMILoride (Midamor) 5 mg tablet [id number] No Take 5 mg by mouth in the morning. Historical Provider, Not Taking Flag for Review aMILoride (Midamor) 5 mg tablet [id number] Yes Take 1 tablet (5 mg) by mouth in the morning. Jericho Abad NP Taking Active amLODIPine (Norvasc) 10 mg tablet [id number] Yes Take 1 tablet (10 mg) by mouth in the morning. Benja Mcghee MD Taking Active atorvastatin (Lipitor) 10 mg tablet [id number] Yes Take 1 tablet (10 mg) by mouth every other day. Gita Egan NP Taking Active blood-glucose meter [facility] [id number] Yes Test daily before all meals/snacks and once before bedtime. With 100 lancets and strips Esther Garduno MD Taking Active carvedilol (Coreg) 12.5 mg tablet [id number] Yes Take 1 tablet (12.5 mg) by mouth with breakfast and with evening meal. Gita Egan NP Taking Active cinacalcet (Sensipar) 30 mg tablet [id number] Yes Take 1 tablet every day by oral route. Praveena Cohen MD Taking Active furosemide (Lasix) 20 mg tablet [id number] Yes take 1 tablet by mouth once daily Naga Bosch MD Taking Active insulin glargine (Lantus Solostar U-100 Insulin) 100 unit/mL (3 mL) injection pen [id number] Yes Inject 20 Units under the skin at bedtime. Esther Garduno MD Taking Active isopropyl alcohoL 70 % towelette [id number] Yes Test daily before all meals/snacks and once before bedtime. Esther Garduno MD Taking Active lisinopril 20 mg tablet [id number] Yes Take 1 tablet (20 mg) by mouth in the morning. Benja Mcghee MD Taking Active magnesium oxide (Mag-Ox) 400 mg (241.3 mg magnesium) tablet [id number] Yes Take 2 tablets (800 mg) by mouth in the morning, at noon, and at bedtime. take 2 tablets by mouth three times a day with meals Jericho Abad NP Taking Active metFORMIN (Glucophage) 500 mg tablet [id number] Yes Take 1 tablet (500 mg) by mouth with breakfast and with evening meal. Esther Garduno MD Taking Active mycophenolate (Myfortic) 180 mg EC tablet [id number] Yes Take 4 tablets (720 mg) by mouth in the morning and at bedtime. Jericho Abad NP Taking Active omeprazole OTC (PriLOSEC OTC) 20 mg EC tablet [id number] Yes Take 1 tablet (20 mg) by mouth before breakfast. Do not crush, chew, or split. Esther Garduno MD Taking Active pen needle, diabetic 31 gauge x 5/16 needle [id number] Yes Use to inject 1-4 times daily as directed. Esther Garduno MD Taking Active sildenafil (Revatio) 20 mg tablet [id number] Yes Take 1 tablet 3 times a day by oral route for 90 days. Benja Mcghee MD Taking Active sulfaSALAzine (Azulfidine) 500 mg EC tablet [id number] Yes Take 500 mg by mouth in the morning and at bedtime. Dane Kerr MD Taking Active tacrolimus (Prograf) 0.5 mg capsule [id number] Yes Take 1 capsule (0.5 mg) by mouth in the morning and at bedtime. Jericho Abad NP Taking Active Immunization History Administered Date(s) Administered Influenza, Seasonal, Quadrivalent, Adjuvanted 04/30/2021 Influenza, Unspecified 02/09/2017 Influenza, injectable, quadrivalent 02/09/2019 Influenza, seasonal, injectable 06/27/2016, 02/13/2017 Pfizer SARS-CoV-2 Vaccination 07/12/2020, 08/02/2020, 04/30/2021 Pneumococcal Polysaccharide PPV23 02/01/2016 Patient Active Problem List Diagnosis Cataract Congestive heart failure ([facility]) Coronary atherosclerosis End-stage renal disease (CMS/HCC) History [...] Diabetes Mother Hyperten (more content not included)... [facility] 07-08-2023 Note Left message for pat ient to take one extra lasix 20 mg today and we will retest tomorrow. Per Dr Martines po. [facility] 07-08-[address] dk dhaliwal, patient added to Dr Moya schedule tomorrow am due to critical low sodium level of 124. Patient notified and will arrive between 8:30 am and 9 am for labs. [facility] 05-19-2023 Note Per phone order of Petr woo MD, Mag IV 3 grams ordered Mag 1.3. BOP notified. Pt notified by phone, states he recently resumed the Amiloride. He is not certain he will agree to return for the infusion. States he reviewed the low Mag level today with Jericho Doran [employer] and was taking 8-9 tablets daily but is now reducing to Mag Oxide 800mg TID. [facility] 05-19-2023 Note 05/19/23 Chief Complaint Patient presents with Kidney Follow-up No concerns PCP: Jericho Mccarthy MD Txp Referring: Preferred Pharmacy: [id number] [address] [facility] [address] [facility] [id number] [facility] [address] [facility] [address] [facility] [address] [place] [address] [address] [address] Subjective Visit Vitals BP 120/62 (BP Location: [...] Dose Status aMILoride (Midamor) 5 mg tablet [id number] Yes Take 5 mg by mouth in the morning. Historical Provider, Taking Active amLODIPine (Norvasc) 10 mg tablet [id number] Yes Take 1 tablet (10 mg) by mouth in the morning. Benja Mcghee MD Taking Active atorvastatin (Lipitor) 10 mg tablet [id number] Yes Take 1 tablet (10 mg) by mouth every other day. Gita Egan NP Taking Active blood-glucose meter misc [id number] Yes Test daily before all meals/snacks and once before bedtime. With 100 lancets and strips Esther Garduno MD Taking Active carvedilol (Coreg) 12.5 mg tablet [id number] Yes Take 1 tablet (12.5 mg) by mouth with breakfast and with evening meal. Gita Egan NP Taking Active cinacalcet (Sensipar) 30 mg tablet [id number] Yes Take 1 tablet every day by oral route. Praveena Cohen MD Taking Active furosemide (Lasix) 20 mg tablet [id number] Yes take 1 tablet by mouth once daily Naga Bosch MD Taking Active insulin glargine (Lantus Solostar U-100 Insulin) 100 unit/mL (3 mL) injection pen [id number] Yes Inject 20 Units under the skin at bedtime. Esther Garduno MD Taking Active isopropyl alcohoL 70 % towelette [id number] Yes Test daily before all meals/snacks and once before bedtime. Esther Garduno MD Taking Active lisinopril 20 mg tablet [id number] Yes Take 1 tablet (20 mg) by mouth in the morning. Benja Mcghee MD Taking Active magnesium oxide (Mag-Ox) 400 mg (241.3 mg magnesium) tablet [id number] Yes take 2 tablets by mouth three times a day with meals Woodrow Root MD Taking Active metFORMIN (Glucophage) 500 mg tablet [id number] Yes Take 1 tablet (500 mg) by mouth with breakfast and with evening meal. Esther Garduno MD Taking Active mycophenolate (Myfortic) 180 mg EC tablet [id number] Yes Take 4 tablets (720 mg) by mouth in the morning and at bedtime. Jericho Abad NP Taking Active omeprazole OTC (PriLOSEC OTC) 20 mg EC tablet [id number] Yes Take 1 tablet (20 mg) by mouth before breakfast. Do not crush, chew, or split. Esther Garduno MD Taking Active pen needle, diabetic 31 gauge x 5/16 needle [id number] Yes Use to inject 1-4 times daily as directed. Esther Garduno MD Taking Active sildenafil (Revatio) 20 mg tablet [id number] Yes Take 1 tablet 3 times a day by oral route for 90 days. Benja Mcghee MD Taking Active sulfaSALAzine (Azulfidine) 500 mg EC tablet [id number] Yes Take 500 mg by mouth in the morning and at bedtime. Dane Kerr MD Taking Active tacrolimus (Prograf) 0.5 mg capsule [id number] Yes Take 1 capsule (0.5 mg) by [...] Brother ALS Brother (more content not included)... [facility] 05-14-2023 Note Patient states he mi ssed a few doses of magnesium and will get back started on and restart the amlodipine per Dr Dk dhaliwal. [facility] 04-30-2023 Note Attestation signed by Ananda Pan [...] as a transfer from outside hospital in [place] for concerns of possible DKA, hyponatremia, and [...] Dose Status aMILoride (Midamor) 5 mg tablet [id number] Take 1 tablet (5 mg) by mouth in the morning. Woodrow Root MD Active amLODIPine (Norvasc) 10 mg tablet [id number] Take 1 tablet (10 mg) by mouth in the morning. Benja Mcghee MD Active atorvastatin (Lipitor) 10 mg tablet [id number] Take 1 tablet (10 mg) by mouth every other day. Gita Egan NP Active carvedilol (Coreg) 12.5 mg tablet [id number] Take 1 tablet (12.5 mg) by mouth with breakfast and with evening meal. Gita Egan NP Active cinacalcet (Sensipar) 30 mg tablet [id number] Take 1 tablet every day by oral route. Praveena Cohen MD Active furosemide (Lasix) 20 mg tablet [id number] take 1 tablet by mouth once daily Naga Bosch MD Active lisinopril 20 mg tablet [id number] Take 1 tablet (20 mg) by mouth in the morning. Benja Mcghee MD Active magnesium oxide (Mag-Ox) 400 mg (241.3 mg magnesium) tablet [id number] take 2 tablets by mo (more content not included)... [facility] 04-30-2023 Note Hospital Medicine Discharge Summary Final Discharge Diagnosis: DKA Admission Diagnosis: DAVID (acute kidney injury) ([facility]) [N17.9] Hospital course: 72 y.o. male who came from home with DAVID with hyponatremia and uncontrolled hyperglycemia. This is a 72 years old gentleman with a medical history of end-stage renal disease s/p renal transplant 3 [address] ago [place] [facility], peripheral vascular disease, pulmonary hypertension, CAD, and hypertension. Mixed hyperlipidemia, COPD, polycystic kidneys, cataract. Came in as transfer from the outside facility hospital in [place] for concern of possible uncontrolled hyperglycemia with [...] Center 05/02/2023 9:00 AM Ramos Hendrickson PA-C [facility] END[facility] 05/19/2023 9:00 AM Jericho Abad NP [...] Medications These medications were sent to [id number] - [place], [place] - [address] [facility] [address] [facility] [place] [address] blood-glucose meter misc insulin glargine 100 unit/mL (3 mL) injection [...] [id number] - (more content not included)... [facility] 04-29-2023 Note Hospital Medicine Daily Progress Note - 04/29/2023 11:18 AM; Room: [address] [place] [address] Admission: 04/27/2023 10:59 PM; Length of stay: 2 days THE HOSPITALIST TEAM PREFERS TO USE [employer] CHAT FOR COMMUNICATION 7AM-7PM. IF I DO NOT RESPOND WITHIN 15 MINUTES, PLEASE PAGE ME/CALL THROUGH THE DIRECTOR IN[employer]MENT [employer]ANKING. FROM 7PM-7AM, PLEASE PAGE [phone](COVR) Code Status: Full Code Barriers to Discharge: [...] Problems Principal Problem: DAVID (acute kidney injury) ([facility]) Assessment and Plan # DKA in [...] Academy of Nutrition and Dietetics and the [place] [employer] of Enteral and Parenteral Nutrition, meets [...] 0.67-0.73. Medial ki (more content not included)... [facility] 04-29-2023 Note Attestation signed by Ananda Pan [...] as a transfer from outside hospital in [place] for concerns of possible DKA, hyponatremia, and [...] Dose Status aMILoride (Midamor) 5 mg tablet [id number] Take 1 tablet (5 mg) by mouth in the morning. Woodrow Root MD Active amLODIPine (Norvasc) 10 mg tablet [id number] Take 1 tablet (10 mg) by mouth in the morning. Benja Mcghee MD Active atorvastatin (Lipitor) 10 mg tablet [id number] Take 1 tablet (10 mg) by mouth every other day. Gita Egan NP Active carvedilol (Coreg) 12.5 mg tablet [id number] Take 1 tablet (12.5 mg) by mouth with breakfast and with evening meal. Gita Egan NP Active cinacalcet (Sensipar) 30 mg tablet [id number] Take 1 tablet every day by oral route. Praveena Cohen MD Acti (more content not included)... [facility] 04-28-2023 Note Hospital Medicine Daily Progress Note - 04/28/2023 12:34 PM; Room: [facility] Admission: 04/27/2023 10:59 PM; Length of stay: 1 days THE HOSPITALIST TEAM PREFERS TO USE [employer] CHAT FOR COMMUNICATION 7AM-7PM. IF I DO NOT RESPOND WITHIN 15 MINUTES, PLEASE PAGE ME/CALL THROUGH THE DIRECTOR [employer]. FROM 7PM-7AM, PLEASE PAGE [phone](COVR) Code Status: Full Code Barriers to Discharge: [...] Problems Principal Problem: DAVID (acute kidney injury) ([facility]) Assessment and Plan # DKA in [...] Academy of Nutrition and Dietetics and the [place] [employer] of Enteral and Parenteral Nutrition, meets [...] Cardiac silhouette is (more content not included)... [facility] 04-27-2023 Note . Hospital Medicine History and Physical 04/27/2023 11:16 PM THE HOSPITALIST TEAM PREFERS TO USE [employer] FOR COMMUNICATION 7AM-7PM. IF I DO NOT RESPOND WITHIN 15 MINUTES, PLEASE PAGE ME/CALL THROUGH THE DIRECTOR [employer]. FROM 7PM-7AM, PLEASE PAGE [phone](COVR) Chief Complaint No chief complaint on file. History of Present Illness Roger Suarez is an 72 y.o. male who came from home with DAVID with hyponatremia and uncontrolled hyperglycemia. This is a 72 years old gentleman with a medical history of end-stage renal disease s/p renal transplant 3 years ago [place] in [facility], peripheral vascular disease, pulmonary hypertension, CAD, and hypertension. Mixed hyperlipidemia, COPD, polycystic kidneys, cataract. Came in as transfer from the outside facility hospital in [place] for concern of possible uncontrolled hyperglycemia with [...] Diagnosis Date Noted DAVID (acute kidney injury) ([facility]) 04/27/2023 COLD (chronic obstructive lung disease) ([facility]) 04/16/2023 Essential hypertension, benign 04/16/2023 Pleurisy with effusion 04/16/2023 Polycystic kidney 04/16/2023 Moderate mixed hyperlipidemia not requiring statin therapy 04/16/2022 Cataract 01/29/2022 Congestive heart failure ([facility]/HCC) 01/29/2022 Coronary atherosclerosis 01/29/2022 Multiple congenital cysts of kidney 01/29/2022 History of renal transplant 10/31/2021 Increased infection risk status post immunosuppressive therapy 10/31/2021 Peripheral vascular disease ([facility]) 01/23/2018 End-stage renal disease ([facility]) 07/22/2009 Assessment and Plan #Acute kidney [...] this hospital stay by a member of [facility]. Past Medical History Past Medical History: Diagnosis Date CHF (congestive heart failure) ([facility]) Chronic kidney disease Coronary artery disease Hypertension Pulmonary hypertension ([facility]) Past Surgical History Past Surgical History: Procedure [...] file Tobacco Use (more content not included)... [facility] 04-22-2023 Note [facility] Cardiology - [facility] Subjective Roger Suarez is a [...] overload/acute heart failure admission on 08/2018 at [facility]. He had couple of dialysis session [...] lower extremity edema. Cardiac catheterization 03/04/2019: 1. Hpuq-ai-mcneaaws single-vessel coronary artery disease with 50% stenosis in the mid to distal circumflex and minimal disease in the LAD and RCA. 2. Moderate elevation of filling pressures. 3. Moderate pulmonary hypertension. 4. Preserved cardiac output and cardiac index. RA 8, RV 59/4, 12. PA (more content not included)... [facility] 04-02-2023 Note New standing lab ord er placed in today's outgoing mail. Following call from clinic [facility] that pt is @ [facility] for lab draws, faxed to [phone] new order and requested [place] fax all lab results to [facility] transplant as last monthly lab results were received September 2022. Pt notified order sent & mailed and to contact [facility] transplant monthly when labs are completed to confirm receipt or have testing @ [facility]. He acknowledged. Encouraged to FU next week with [facility] transplant. [facility] 03-05-2022 Procedure note [facility] 01-21-2022 Evaluation note Encounter Date Diagnosis Assessment Notes Jan, Diarrhea (ICD-10 - R19.7) Colonoscopy Okay to take Imodium - 1 tablet every morning Jan, Fecal urgency (ICD-10 - R15.2) [facility] Other 05-01-2010 History general Narrative - Reported* Type Description Date Medical History HTN Medical History ESRD-on hemodialysis Medical History Polycystic kidney disease Surgical History Left rosoi fistula creation Surgical History Right hand orthopedi [...] Hospitalization History Kidney Issue; on transplant list ([facility]) 02/2018 Hospitalization History pulmonary embolism 0 [facility] Other Evaluation noteNo assessment information available [facility] Work Phone: Evaluation note* Diagnosis Onset Date Resolution Status Diarrhea acute [facility] Work Phone: Evaluation note* Diagnosis Type 2 diabetes mellitus with hyperglycemia, with long-term current use of insulin (CMS/HCC)- Primary Essential hypertension, benign (CMS/HCC) Essential hypertension, benign Peripheral vascular disease (CMS/HCC) Unspecified peripheral vascular disease Type 2 diabetes mellitus with diabetic chronic kidney disease (CMS/HCC) Chronic kidney disease, stage 2 (mild) Type 2 diabetes mellitus with diabetic peripheral angiopathy without gangrene (CMS/HCC) [facility] Additional Instructions DISCHARGE INSTRUCTIONS FOR [...] if you have any problems. -Office number [phone] [facility] Work Phone: Reason for visit NarrativePATIENT REFERRED BY DR. MCCARTHY FOR EVALUATION AND TREATMENT OF DIARRHEAFinger Elo7 Other Summary Purpose Family History Relationship Condition Age at Onset Recorded Date/T shoshana Not Specified Congenital polycystic kidney Unknown Diabetes mellitus Unknown Myocardial infarction Unknown Family history of co ronary artery bypass surgery Unknown Advance Directives Advance Directive Response Recorded Date/ Time Advance [...] section and content) DATE CREATED AUTHOR [facility]/13/2019 [facility] DATE CREATED AUTHOR AUTHOR'S ORGANIZ ATION 11/02/2021 [facility] DATE CREATED AUTHOR AUTHOR'S ORGANIZ ATION 03/12/2022 [facility] DATE CREATED AUTHOR AUTHOR'S ORGANIZ ATION 10/18/2022 [facility] [place] [facility] DATE CREATED AUTHOR AUTHOR'S ORGANIZ ATION 02/13/2024 [facility] DATE CREATED AUTHOR AUTHOR'S ORGANIZ ATION 02/16/2024 [facility] [employer] Care Teams (unrecognized sec tion and content) Team Status: Inactive Member Role Status Dates Jericho Mccarthy MD Primary Care Provider Active Tj Wells MD Attending Provider Active Team Status: Active Member Role Status Dates Jericho Mccarthy MD Primary Care Provider Active Critical Care Specialist Relationship Specialty Start Date End Date Jericho Mccarthy MD [address] [place] [address] PCP - General Family Medicine 08/25/23 Critical Care Specialist Relationship Specialty Start Date End Date Jericho Mccarthy MD [address] [place] [address] PCP - General Family Medicine 08/25/23 Goals (unrecognized section and content) Goals may be documented in a n alternate section Reason for Visit (unrecogniz ed section and content) Reason Comments Follow-up 6 M FOR RECORDS PERTAINING TO PATIENTS WHO ARE [...] BE BASED ON THE PRIMARY CLINICAL RECORDS. [facility] [employer] provides no warranty or guarantee of the accuracy or completeness of information in this document.
[2024-03-11 07:48] LABS: Basophils Percent Auto 0.5 % (0.2-2.0); Eosinophils Absolute Auto 0.2 10^3/uL (0.0-0.7); Eosinophils Percent Auto 2.7 % (0.9-7.0); Hematocrit 36.6 % (42.0-54.0); Hemoglobin 12.1 g/dL (14.0-18.0); Immature Granulocytes Abs Auto 0.03 10^3/uL (0.00-0.03); Immature Granulocytes Pct Auto 0.5 % (0.0-0.5); Lymphocytes Absolute Auto 0.9 10^3/uL (1.2-3.8); Lymphocytes Percent Auto 13.3 % (20.5-60.0); Mean Corpuscular HGB Conc 33.1 g/dL (29.9-35.2); Mean Corpuscular Hemoglobin 29.3 pg (25.9-34.0); Mean Corpuscular Volume 88.6 fL (80.0-94.0); Mean Platelet Volume 9.1 fL (9.5-13.5); Monocytes Absolute Auto 0.5 10^3/uL (0.3-0.8); Monocytes Percent Auto 7.7 % (1.7-12.0); Neutrophils Percent Auto 75.3 % (43.0-75.0); Platelet Count 262 10^3/uL (150-450); Red Blood Count 4.13 10^6/uL (4.70-6.10); Red Cell Distribution Width 13.7 % (11.0-15.0); White Blood Count 6.6 10^3/uL (4.0-11.0)
[2024-03-11 08:26] LABS: Alanine Aminotransferase 20 U/L (16-63); Albumin Globulin Ratio 1.1; Albumin Level 3.9 g/dL (3.4-5.0); Alkaline Phosphatase 115 U/L (46-116); Anion Gap 15.8; Aspartate Amino Transferase 19 U/L (15-37); BUN Creatinine Ratio 14.7; Bilirubin Direct 0.1 mg/dL (0.0-0.2); Bilirubin Total 0.4 mg/dL (0.2-1.0); Calcium 8.4 mg/dL (8.5-10.1); Chloride 100 mmol/L (98-107); Estimated GFR (African America >60 (>=60 mL/min/1.73m^2); Estimated GFR (Non-African Ame >60 (>=60 mL/min/1.73m^2); Globulin 3.4 g/dL; Glucose 94 mg/dL (74-106); Magnesium 1.4 mg/dL (1.8-2.4); Phosphorus 4.2 mg/dL (2.6-4.7); Potassium 4.8 mmol/L (3.5-5.1); Sodium 137 mmol/L (136-145); Total Protein 7.3 g/dL (6.4-8.2); Uric Acid 6.2 mg/dL (3.5-7.2)
[2024-03-13 14:09] LABS: BKV DNA, Quant PCR, Plasma Negative (Negative)
[2024-03-14 11:07] LABS: Tacrolimus (FK506), Blood 4.9 ng/mL (2.0-20.0)
== END 2024-03-11 07:00 | disposition home or self-care (01) ==
LOC: LAB 07:04
PROVIDERS: PCP Family Medicine
DX: Z94.0 Kidney transplant status (principal); B34.8 Other viral infections of unspecified site; E13.9 Other specified diabetes mellitus without complications
CPT/HCPCS: 36415; 80053; 80197; 82248; 83735; 84100; 84550; 85025; 87799

== ENCOUNTER 2024-03-23 07:47 | Outpatient (OUT) | payer MEDICARE, OTHER, SELFPAY ==
--- NOTE | 2024-03-23 07:55 | CA_ITS ---
Patient Name: ROGER KERR MR#: [id number] : 1950 Exam Date: 03/23/2024 Ordering Doctor: DR BENJA MCGHEE M.D. ECHOCARDIOGRAM REPORT PROCEDURE: CA ECHO DOPPLER COMPLETE INDICATIONS: Primary pulmonary HTN, Chronic systolic CHF COMPARISON: None. DESCRIPTION: COMPLETE ECHOCARDIOGRAM Real-time transthoracic echocardiography with 2D, M-mode, spectral and color flow Doppler performed. QUALITY: Technical quality was good. LEFT VENTRICLE: Normal chamber size. Mild concentric left ventricular hypertrophy. Global left ventricular systolic function is normal. LV EF: Visual estimation of left ventricular ejection fraction is 65-70%. DIASTOLIC: Grade 2 diastolic dysfunction. ATRIAL SEPTUM: LEFT ATRIUM: Severe dilatation. RIGHT ATRIUM: Moderate dilatation. RIGHT VENTRICLE: Mild chamber dilatation. Normal right ventricular systolic function. TRICUSPID VALVE: Normal mobility and thickness. No stenosis with mild regurgitation. Mild pulmonary hypertension. RVSP 38 mmHg MITRAL VALVE: Normal mobility and thickness. No evidence of mitral valve stenosis. There is no mitral annular calcification. Mild to moderate mitral regurgitation. AORTIC VALVE: Normal trileaflet appearance. No visible sclerosis. Normal leaflet mobility. No evidence of aortic valve stenosis. Mild aortic regurgitation. AORTIC ROOT: Normal diameter and appearance. PULMONIC VALVE: Normal thickness and mobility. No stenosis. No regurgitation. PERICARDIUM: Small pericardial effusion. No evidence of tamponade physiology. IVC: Collapses with inspirations. Normal size. PLEURA: CONCLUSION: 1. Mild concentric left ventricular hypertrophy with normal systolic function. LVEF is estimated at 65 to 70%. 2. Mildly dilated right ventricle with normal systolic function. 3. Moderate to severe biatrial dilatation. 4. Mild to moderate mitral regurgitation. 5. Mild aortic regurgitation. 6. Mild tricuspid regurgitation. 7. Mildly elevated right-sided pressures. 8. Small pericardial effusion. Adult Echocardiography Procedure Report Left Ventricle LVEDD (3.7 - 5.6 cm): 5.01 cm LVESD (2.2 - 4.0 cm): 3.32 cm LVIVS thickness (0.6 - 1.2 cm): 1.24 cm LVPW thickness (0.5 - 1.0 cm): 1.21 cm e': 0.09 m/s E - e': 8.30 LVOT Max Gradient: 4.99 mm[Hg] LVOT Area (cm2): 1.12 m/s Peak Velocity (LVOT): 1.12 m/s Mean Velocity (LVOT): 0.63 m/s LVOT Diameter 2.06 cm Left Ventricular Ejection Fraction: 65-70 % Left Atrium LA Volume Index (2D A2C): 57.14 ml/m2 Left Atrium Systolic Dimension: 4.63 cm Mitral Valve MV E to A Ratio: 1.50, 1.29 Mitral Valve A-Wave Peak Velocity: 0.56 m/s Mitral Valve E-Wave Peak Velocity: 0.78 m/s Right Ventricle RV Internal Diastolic Dimension: 3.22 cm Aorta AO Root Diam: 3.56 cm Ascending Ao Diam: 3.16 cm Aortic Valve AoV Area (Peak Ronnie): 2.79 cm2, 2.79 cm2 AoV Area (VTI): 2.50 cm2, 2.50 cm2 Deceleration Grand: 0.67 m/s2 Pressure Half-Time: 1.17 s Peak Velocity(Antegrade Flow): 1.34 m/s Peak Gradient(Antegrade Flow): 7.17 mm[Hg] Mean Velocity(Antegrade Flow): 0.86 m/s Mean Gradient(Antegrade Flow): 3.46 mm[Hg] Velocity Time Integral: 35.07 cm Tricuspid Valve Peak Velocity (Regurgitant Flow): 2.49 m/s, 2.68 m/s, 2.95 m/s, 2.84 m/s Pulmonic Valve Mean Gradient: 3.65 mm[Hg] Mean Velocity: 0.91 m/s Peak Velocity: 1.19 m/s, 1.07 m/s Peak Gradient: 5.69 mm[Hg], 4.60 mm[Hg] Right Atrium Right Atrium Systolic Pressure: 51.03 ml, 51.03 ml Dictated by: Benja Mcghee M.D. on 03/23/2024 at 10:35 Approved by: Benja Mcghee M.D. on 03/23/2024 at 10:39
--- OUTSIDE RECORDS SUMMARY | 2024-03-23 08:04 | XMS_ITS | CCD ---
Author Organization [facility] Care Team Providers Care Home Health Specialist Name Role Phone Tj Wells Unavailable MD [...] NADERER, DR JERICHO Floyd Primary Care Unavailable WINNEMUCCA, DR MERRITT Consulting Unavailable WINNEMUCCA, DR MERRITT Attending Unavailable WINNEMUCCA, DR MERRITT Admitting Unavailable NADERER, DR FERGUSON A Primary Care Unavailable MISC, DR ALVAREZ Attending Unavailable MISC, DR ALVAREZ Admitting Unavailable NADERER, DR JERICHO lFoyd Primary Care Unavailable MISC, DR ALVAREZ Consulting Unavailable WINNEMUCCA, DR MERRITT Consulting Unavailable WINNEMUCCA, DR MERRITT Attending Unavailable NADERER, DR JERICHO Floyd Primary Care Unavailable WINNEMUCCA, DR MERRITT Admitting Unavailable MISC, DR ALVAREZ [...] Care Unavailable MISC, DR ALVAREZ Attending Unavailable NADHAROON, DR FERGUSON A Primary Care Unavailable HAY ., DR WINTERS Consulting Unavailable HAY ., DR WINTERS Attending Unavailable HAY ., DR WINTERS Admitting Unavailable MISC, DR ALVAREZ Admitting Unavailable MISC, DR ALVAREZ Consulting Unavailable NADHAROON, DR JERICHO Floyd Primary Care Unavailable MISC, DR ALVAREZ Attending Unavailable MISC, DR ALVAREZ Attending Unavailable MISC, DR ALVAREZ Admitting Unavailable MISC, DR ALVAREZ Consulting Unavailable NADHAROON, DR FERGUSON A Primary Care Unavailable NADHAROON, JERICHO Attending Unavailable FABIO, JERICHO Attending Unavailable PETITTRAJESH Rodriguez Attending Unavailable FABIO, JERICHO Attending Unavailable Jericho Mccarthy MD Primary Care Provider BENJA MCGHEE Attending Unavailable CRISENJAMEE, JERICHO Attending Unavailable SAVNICK, SANTANA Attending Unavailable MENDY CLEMONS Referring Unavailable CHRISTIAN, GYPSY Admitting Unavailable HORANI, ESTHER Attending Unavailable HORANI, ESTHER Referring Unavailable MERZA, NOORALDIN Referring Unavailable MERZA, NOORALDIN Referring Unavailable SAVZYAN, SANTANA Attending Unavailable AKRAWI, PRICE Attending Unavailable Allergies Allergy Classification Reported Allergen(s) Allergy Type Date of Onset Reaction(s) Facility (4 sources) Non-steroidal anti-inflammator y agent Drug Intolerance [address] [facility] (1 source) NSAIDs; Translations: [NSAIDS (NON-STEROIDAL ANTI-INFLAMMATOR Y DRUG)] Propensity to adverse reactions to drug (disorder) 2 [facility] Repository Medications Current Medications Medication Drug Class(es) Dates Sig (Normalized) Sig (Original) aMILoride hydrochloride 5 mg oral tablet (3 sources) Potassium-sparing Diuretic Start: 01-19-2024 End: 01-18-2025 take 1 tablet by mouth in the morning aMILoride (Midamor) 5 MG tablet Take 5 mg by mouth in the morning. 01/19/2024 01/18/2025 Active amLODIPine 10 mg oral tablet (7 sources) Dihydropyridine Calcium Channel Swetha Start: 07-08-2017 take 10 mg by mouth once daily Amlodipine Active 10 MG PO Daily July 08, 2017 1:00am atorvastatin 10 mg oral tablet (6 sources) HMG-CoA Reductase Inhibitor Start: 10-04-2022 take [...] 90 Active carvedilol 3.125 mg oral tablet (12 sources) alpha-Adrenergic Swetha, beta-Adrenergic Swetha Start: 03-05-2022 [...] meals. Active cinacalcet 30 mg oral tablet (6 sources) Calcium-sensing Receptor Agonist Start: 03-05-2022 take 30 mg by mouth once daily Cinacalcet Active 30 MG PO Daily March 05, 2022 12:00am Cinacalcet HCl A ctive dicyclomine hydrochloride 20 mg oral tablet (1 source) Anticholinergic Start: 03-05-2022 take 20 mg by mouth twice daily Dicyclomine Active 20 MG PO Twice daily March 05, 2022 12:00am furosemide 20 mg oral tablet (5 sources) Loop Diuretic Start: 09-16-2023 take 1 [...] ml insulin glargine 100 unt/ml pen injector (6 sources) Insulin Analog Start: 03-03-2024 Basaglar KwikP en 100 UNIT/ML pen Indications: Type 2 diabetes mellitus with hyperglycemia, with long-term current use of insulin (CMS/HCC) INJECT 20 UNITS SUBCUTANEOUSLY (UNDER THE SKIN) AT BEDTIME 15 mL 03/03/2024 Active Start: 02-16-2024 insulin glargi ne (Basaglar [...] Start: 11-18-2023 End: 02-16-2024 insulin glargine (Basaglar Petr Lay) 100 UNIT/ML pen Indications: Type 2 diabetes mellitus with hyperglycemia, with long-term current use of insulin (CMS/HCC) INJECT 20 UNITS SUBCUTANEOUSLY AT BEDTIME 6 mL 3 11/18/2023 02/16/2024 Discontinued lisinopril 20 mg oral tablet (7 sources) Angiotensin Converting Enzyme Inhibitor Start: 01-07-2017 take 20 mg by mouth once daily Lisinopril Active 20 MG PO Daily January 07, 2017 12:00am Start: 01-07-2017 take 20 mg by mouth twice carmelo y Lisinopril Active 20 MG PO Twice daily January 07, 2017 12:00am Magnesium (1 source) Magnesium Active magnesium oxide 400 mg oral tablet (6 sources) Start: 03-05-2022 take 1200 mg by [...] Active metFORMIN hydrochloride 500 mg oral tablet (4 sources) Biguanide Start: 11-27-2023 take 1 tablet by mouth twice daily at dinner metFORMIN (Glucophage) 500 MG tablet Indications: Type 2 diabetes mellitus with hyperglycemia, without long-term current use of insulin (CMS/[facility]) take 1 tablet by mouth twice a day WITH MORNING AND EVENING MEALS 180 tablet 11 11/27/2023 Active mycophenolic acid 180 mg delayed release oral tablet (5 sources) Antimetabolite Immunosuppressant take 4 tablets by mouth in the morning mycophenolate (Myfortic) 180 MG EC tablet Take 4 tablets by mouth in the morning and 4 tablets before bedtime. Active take 2 tablets by mo [facility] every twelve hours Mycophenolate Sodium 180 MG 2 tablets Or ally Twice a day Active omeprazole 20 mg delayed release oral tablet (4 sources) Proton Pump Inhibitor Start: 04-30-2023 take 1 tablet by mouth before mealtime omeprazole OTC (PriLOSEC OTC) 20 MG EC tablet Take 20 mg by mouth in the morning. Take before meals. 04/30/2023 Active sildenafil 20 mg oral tablet (6 sources) Phosphodiesterase 5 Inhibitor Start: 11-29-2022 take 1 tablet by mouth every eight hours sildenafil (Revatio) 20 MG tablet Take 20 mg by mouth every 8 (eight) hours 11/29/2022 Active Start: 03-05-2022 take 20 mg by mouth three times daily Sildenafil (Pulm.Hypertension) Active 20 MG PO Three times daily March 05, 2022 12:00am take 1 tablet by pastora three times daily Sildenafil Citrate 20 MG [...] tacrolimus 0.5 mg extended release oral capsule (6 sources) Calcineurin Inhibitor Immunosuppressant Start: 03-05-2022 take [...] aspirin 81 mg delayed release oral tablet (5 sources) Platelet Aggregation Inhibitor, Nonsteroidal Anti-inflammatory Drug [...] MCG IVP MWF DURING DIALYSIS PER [facility] (08/26/18) 5 ml sodium ferric gluconate complex 12.5 mg/ml injection (2 sources) Start: 07-08-2017 End: 03-05-2022 Sodium Ferric Gluconat-Sucrose (Ferrlecit) 62.5 mg/5 mL Solution Discontinued 125 MG IV Q14D July 08, 2017 1:00am March 05, 2022 7:07am RECEIVES FERRLECIT 125MG IVP EVERY OTHER FRIDAY (DOSE DUE 08/26/18 PER [facility]) Problems Active Problems Problem Classification Problem Date Documented Date Episodic/Chronic Cataract (4 sources) Cataract; Translations: [Unspecified cataract] Onset: 3 05-02-2023 Chronic Chronic kidney disease (20 sources) Dependence on renal dialysis; Translations: [Dependence on renal dialysis] Onset: 0 08-26-2018 Chronic Chronic obstructive pulmonary disease and bronchiectasis (4 sources) Chronic obstructive lung disease; Translations: [Chronic obstructive pulmonary disease, unspecified] Onset: 3 05-22-2023 Chronic Congestive heart failure; nonhypertensive (6 sources) Chronic heart failure co-occurrent with normal ejection fraction; Translations: [Chronic diastolic (congestive) heart failure] Onset: 2 05-22-2023 Chronic Coronary atherosclerosis and other heart disease (6 sources) Coronary atherosclerosis; Translations: [Atherosclerotic heart disease of [place]iat[place] coronary artery without angina pectoris] Onset: 2 05-02-2023 Chronic Diabetes mellitus with complications (12 sources) Hyperglycemia due to type 2 diabetes mellitus; Translations: [Type 2 diabetes mellitus with hyperglycemia] Onset: 3 05-22-2023 Chronic Disorders of lipid metabolism (5 sources) Pure hypercholesterolemia, unspecified; Translations: [Mixed hyperlipidemia] Onset: 2 05-02-2023 Chronic Esophageal disorders (2 sources) Gastroesophageal reflux disease; Translations: [Gastro-esophageal reflux disease without esophagitis] 08-26-2018 Chronic Essential hypertension (15 sources) Hypertensive disorder; Translations: [Essential (primary) hypertension] Onset: 2 Resolved: 4 08-26-2018 Chronic Fluid and electrolyte disorders (2 sources) Hypo-osmolality and hyponatremia; Translations: [Hypo-osmolality and hyponatremia] Onset: 4 Episodic Genitourinary congenital anomalies (11 sources) Multiple congenital cysts of kidney; Translations: [Polycystic kidney, unspecified] Onset: 2 08-26-2018 Chronic Hypertension with complications and secondary hypertension (2 sources) Hypertensive emergency; Translations: [Hypertensive emergency] 08-26-2018 Chronic Other aftercare (4 sources) 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; 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 AFTERCARE FLW OTH ORGN TRANSPL] Onset: 3 Chronic Other [...] Onset: 2 Episodic Peripheral and visceral atherosclerosis (6 sources) Peripheral vascular disease; Translations: [Peripheral vascular [...] te Episodic/Chronic Acute and unspecified renal failure (6 sources) Acute renal failure syndrome; Translations: [Acute kidney failure, unspecified] Onset: 3 Resolved: 4 08-25-2023 Episodic Diabetes mellitus without complication (2 sources) Impaired glucose tolerance (oral); Translations: [Impaired glucose tolerance (oral)] Onset: 4 Episodic Nausea and vomiting (3 sources) Nausea with vomiting, unspecified; Translations: [NAUSEA WITH VOMITING UNSPECIFIED] Onset: 2 Episodic Noninfectious gastroenteritis (1 source) Noninfective gastroenteritis and colitis, unspecified; Translations: [NONINFECTIVE GE AND COLITIS UNS] Onset: 2 Episodic Other aftercare (1 source) Other tank terminal gauger (current) drug therapy; Translations: [OTH PRISON CURRENT DRUG THERAPY] Onset: 2 Episodic Other gastrointestinal disorders (3 sources) Diarrhea, unspecified; Translations: [Diarrhea] Onset: 2 Resolved: 2 Episodic Other gastrointestinal disorders (1 source) Fecal urgency Onset: 2 Resolved: 2 Episodic Other non-epithelial cancer of skin (4 sources) Basal cell carcinoma of dorsum of nose; Translations: [Basal cell carcinoma of skin of nose] Onset: 3 05-02-2023 Episodic Pleurisy; pneumothorax; pulmonary collapse (4 sources) Pleurisy with effusion; Translations: [Pleural effusion, not elsewhere classified] Onset: 3 04-16-2023 Episodic Residual codes; unclassified (4 sources) At risk for infection; Translations: [Personal history of immunosupression therapy] Onset: 2 05-02-2023 Episodic Results Test Name Value Interpretation Reference Range Facility ALL CBC WITH AUTO DIFFon BASOPHILS ABSOLUTE AUTO [address] [facility] Basophils/100 WBC (Bld) 0.5 % 0.2 - 2.0 % [facility] Eosinophils/100 WBC (Bld) 2.7 % 0.9 - 7.0 % [facility] Erythrocyte distribution width (RBC) [Ratio] 13.7 % 11.0 - 15.0 % [facility] Hematocrit (Bld) [Volume fraction] 36.6 % Low 42.0 - 54.0 % [facility] Hemoglobin (Bld) [Mass/Vol] 12.1 g/dL Low 14.0 - 18.0 g/dL [facility] IMMATURE GRANULOCYTES ABS AUTO 0.[address] [facility] Immature granulocytes/100 WBC (Bld) 0.5 % 0.0 - 0.5 % [facility] Interpretation and review of laboratory results Abnormal [facility] LYMPHOCYTES ABSOLUTE AUTO 0.[address] [facility] Lymphocytes/100 WBC (Bld) 13.3 % Low 20.5 - 60.0 % [facility] MCH (RBC) [Entitic mass] 29.3 pg 25.9 - 34.[address] [facility] MCHC (RBC) [Mass/Vol] 33.1 g/dL 29.9 - 35.2 g/dL [facility] MCV (RBC) [Entitic vol] 88.6 fL 80.0 - 94.[address] [facility] MONOCYTES ABSOLUTE AUTO 0.[address] [facility] Monocytes/100 WBC (Bld) 7.7 % 1.7 - 12.0 % [facility] NEUTROPHILS ABSOLUTE AUTO [address] [facility] Neutrophils/100 WBC (Bld) 75.3 % High 43.0 - 75.0 % [facility] Platelet mean volume (Bld) [Entitic vol] 9.1 fL Low 9.5 - 13.[address] [facility]H EO # 0.[address] [facility] PLT [address] [facility] RBC 4.[address] [facility] WBC 6.[address] [facility] Documentationon 03-11-2024 Documentation [id number] Roger Suarez 1950 M Date Provider Department Center 03/11/2024 MITCHELL [facility] TXP None Family History Problem Relation Age of Onset Diabetes Mother Hypertension Mother Coronary artery disease Mother Other Mother Cystic kidney disease Mother Hypertension Father Skin cancer Father Cystic kidney disease Father Cystic kidney disease Sister Heart disease Brother ALS Brother Cystic kidney disease Brother Family Status - Relation Status Age at Mother Father Sister Brother Normal [facility] Orders Onlyon 01-16-2024 Orders Only [id number] Roger Suarez 1950 M Date Provider Department Center 01/16/2024 SANTANA [place] TXP None Family History Problem Relation Age of Onset Diabetes Mother Hypertension Mother Coronary artery disease Mother Other Mother Cystic kidney disease Mother Hypertension Father Skin cancer Father Cystic kidney disease Father Cystic kidney disease Sister Heart disease Brother ALS Brother Cystic kidney disease Brother Family Status - Relation Status Age at Mother Father Sister Brother Normal [facility] Follow-Upon 10-31-2023 Follow-Up [id number] ErickRoger Tyson 1950 M Date Provider Department Center 10/31/2023 [id number] MARQUES None Family History Problem Relation Age of Onset Diabetes Mother Hypertension Mother Coronary artery disease Mother Other Mother Cystic kidney disease Mother Hypertension Father Skin cancer Father Cystic kidney disease Father Cystic kidney disease Sister Heart disease Brother ALS Brother Cystic kidney disease Brother Family Status - Relation Status Age at Mother Father Sister Brother Level of Service:47838 [place] OFFICE/OUTPATIENT ESTABLISHED MOD MDM 30 MIN Reason for Visit and Comments: Kidney Follow-up [[id number]] - Pt has no concerns at this time. Normal [facility] BILIRUBIN, DIRECTon 07-09-19 Magnesium [Mass/Vol] 0.2 mg/dL Normal 0-0.2 [facility] Comment on above: Performed By: #### L [id number] #### [facility] ([facility]) [address] [place] [address] CBC WITH AUTO DIFFERENTIALon 07-09-2023 Basophils (Bld) [#/Vol] 0.03 10*3/uL Normal 0.00-0.20 [facility] Comment on above: Performed By: #### L [id number] #### [facility] ([facility]) [address] [place] [address] Basophils/100 WBC (Bld) 0.4 % Normal 0.0-1.0 [facility] Comment on above: Performed By: #### L [id number] #### [facility] ([facility]) [address] [place] [address] Eosinophils (Bld) [#/Vol] 0.16 10*3/uL Normal 0.00-0.50 [facility] Comment on above: Performed By: #### L [id number] #### [facility] ([facility]) [address] [place] [address] Eosinophils/100 WBC (Bld) 1.9 % Normal 0.0-6.0 [facility] Comment on above: Performed By: #### L [id number] #### [facility] [address] [place] [address] Erythrocyte distribution width (RBC) [Ratio] 14.0 % Normal 11.5-15.0 [facility] Comment on above: Performed By: #### L [id number] #### [facility] ([facility]) [address] [place] [address] ERYTHROCYTE MEAN CORPUSCULAR HEMOGLOBIN CONCENTRATION (G/DL) BY AUTOMATED 34.4 g/dL Normal 32.0-35.0 [facility] Comment on above: Performed By: #### L [id number] #### [facility] ([facility]) [address] [place] [address] Hematocrit (Bld) [Volume fraction] 32.3 % Low 39.0-55.0 [facility] Comment on above: Performed By: #### L [id number] #### [facility] ([facility]) [address] [place] [address] Hemoglobin (Bld) [Mass/Vol] 11.1 g/dL Low 13.0-17.0 [facility] Comment on above: Performed By: #### L [id number] #### [facility] ([facility]) [address] [place] [address] Immature granulocytes (Bld) [#/Vol] 0.05 10*3/uL Normal 0.00-0.20 [facility] Comment on above: Performed By: #### L [id number] #### [facility] ([facility]) [address] [place] [address] Immature granulocytes/100 WBC (Bld) 0.6 % Normal 0.0-1.0 [facility] Comment on above: Performed By: #### L [id number] #### [facility] ([facility]) [address] [place] [address] Lymphocytes (Bld) [#/Vol] 1.08 10*3/uL Low 1.20-4.00 [facility] Comment on above: Performed By: #### L [id number] #### [facility] [address] [place] [address] Lymphocytes/100 WBC (Bld) 12.7 % Low 20.0-45.0 [facility] Comment on above: Performed By: #### L [id number] #### [facility] ([facility]) [address] [place] [address] MCH (RBC) [Entitic mass] 30.0 pg Normal 27.0-33.0 [facility] Comment on above: Performed By: #### L [id number] #### [facility] ([facility]) [address] [place] [address] MCV (RBC) [Entitic vol] 87.3 fL Normal 82.0-98.0 [facility] Comment on above: Performed By: #### L [id number] #### [facility] ([facility]) [address] [place] [address] Monocytes (Bld) [#/Vol] 0.67 10*3/uL Normal 0.10-1.00 [facility] Comment on above: Performed By: #### L [id number] #### [facility] ([facility]) [address] [place] [address] Monocytes/100 WBC (Bld) 7.9 % Normal 5.0-12.0 [facility] Comment on above: Performed By: #### L [id number] #### [facility] ([facility]) [address] [place] [address] Neutrophils (Bld) [#/Vol] 6.49 10*3/uL Normal 1.60-7.60 [facility] Comment on above: Performed By: #### L [id number] #### [facility] ([facility]) [address] [place] [address] Neutrophils/100 WBC (Bld) 76.5 % High 40.0-72.0 [facility] Comment on above: Performed By: #### L [id number] #### [facility] [address] [place] [address] NRBC (PER 100 WBCS) BY AUTOMATED COUNT 0.0 % Normal 0 [facility] Comment on above: Performed By: #### L [id number] #### [facility] ([facility]) [address] [place] [address] PLATELETS (10*3/UL) IN BLOOD AUTOMATED COUNT 271 10*3/uL Normal 150-400 [facility] Comment on above: Performed By: #### L [id number] #### [facility] ([facility]) [address] [place] [address] RBC (Bld) [#/Vol] 3.70 10*6/uL Low 4.20-5.70 [facility] Comment on above: Performed By: #### L [id number] #### [facility] ([facility]) [address] [place] [address] WBC (Bld) [#/Vol] 8.48 10*3/uL Normal 4.00-10.60 [facility] Comment on above: Performed By: #### L [id number] #### [facility] ([facility]) [address] [place] [address] COMPREHENSIVE METABOLIC PANE Claudio 07-09-2023 Albumin [Mass/Vol] 4.4 g/dL Normal 3.5-5.7 [facility] Comment on above: Performed By: #### L [id number] #### [facility] ([facility]) [address] [place] [address] ALP [Catalytic activity/Vol] 82 U/L Normal 34-104 [facility] Comment on above: Performed By: #### L [id number] #### [facility] ([facility]) [address] [place] [address] ALT [Catalytic activity/Vol] 9 U/L Normal 7-52 [facility] Comment on above: Performed By: #### L [id number] #### [facility] ([facility]) [address] [place] [address] Anion gap [Moles/Vol] 15 mmol/L Normal 7-20 [facility] Comment on above: Performed By: #### L [id number] #### [facility] ([facility]) [address] [place] [address] AST [Catalytic activity/Vol] 14 U/L Normal 13-39 [facility] Comment on above: Performed By: #### L [id number] #### [facility] ([facility]) [address] [place] [address] Bilirubin [Mass/Vol] 0.5 mg/dL Normal 0.3-1.0 [facility] Comment on above: Performed By: #### L [id number] #### [facility] ([facility]) [address] [place] [address] Calcium [Mass/Vol] 9.1 mg/dL Normal 8.6-10.3 [facility] Comment on above: Performed By: #### L [id number] #### [facility] ([facility]) [address] [place] [address] Chloride [Moles/Vol] 93 mmol/L Low 98-107 [facility] Comment on above: Performed By: #### L [id number] #### [facility] ([facility]) [address] [place] [address] CO2 [Moles/Vol] 22 mmol/L Normal 21-31 [facility] Comment on above: Performed By: #### L [id number] #### [facility] ([facility]) [address] [place] [address] Creatinine [Mass/Vol] 1.01 mg/dL Normal 0.70-1.30 [facility] Comment on above: Performed By: #### L [id number] #### [facility] ([facility]) [address] [place] [address] GLOMERULAR FILTRATION RATE ML/MIN/1.73 SQ M.PREDICTED 79.5 mL/min/1.73m*2 Normal >60.0 [facility] Comment on above: Result Comment: [facility]???s estimated glomerular filtration rate (eGFR) will [...] individuals. Performed By: #### L [id number] #### [facility] ([facility]) [address] [place] [address] Glucose [Mass/Vol] 86 mg/dL Normal 70-100 [facility] Comment on above: Performed By: #### L [id number] #### [facility] ([facility]) [address] [place] [address] Potassium [Moles/Vol] 5.2 mmol/L High 3.5-5.1 [facility] Comment on above: Performed By: #### L [id number] #### [facility] ([facility]) [address] [place] [address] Protein [Mass/Vol] 6.8 g/dL Normal 6.0-8.3 [facility] Comment on above: Performed By: #### L [id number] #### [facility] ([facility]) [address] [place] [address] Sodium [Moles/Vol] 125 mmol/L Low 136-145 [facility] Comment on above: Performed By: #### L [id number] #### [facility] [address] [place] [address] Urea nitrogen [Mass/Vol] 17 mg/dL Normal 7-25 [facility] Comment on above: Performed By: #### L [id number] #### [facility] ([facility]) [address] [place] [address] UREA NITROGEN/CREATININE (MASS RATIO) IN SER/PLAS 16.8 Normal [facility] Comment on above: Performed By: #### L [id number] #### [facility] ([facility]) [address] [place] [address] Follow-Upon 07-09-2023 Follow-Up [id number] Roger Suarez 1950 M Provider Department Center 07/09/2023 [id number] MARTINES TXP None Family History Problem Relation Age of Onset Diabetes Mother Hypertension Mother Coronary artery disease Mother Other Mother Cystic kidney disease Mother Hypertension Father Skin cancer Father Cystic kidney disease Father Cystic kidney disease Sister Heart disease Brother ALS Brother Cystic kidney disease Brother Family Status - Relation Status Age at Mother Father Sister Brother Level of Service:[id number] [place] OFFICE/OUTPATIENT ESTABLISHED LOW MDM 20 MIN Reason for Visit and Comments: Kidney Follow-up [] - Patient has no major concerns today Normal [facility] HEMOGLOBIN A1Con 07-09-2023 Glucose [Mass/Vol] 160 mg/dL Normal [facility] Comment on above: Performed By: #### L [id number] #### [facility] CAMPUS) [address] [place] [address] HbA1c (Bld) [Mass fraction] 7.2 % High 4.0-6.0 [facility] Comment on above: Performed By: #### L [id number] #### [facility] (BEAKER) [address] [place] [address] Labon 07-09-2023 Lab [id number] Roger Suarez 1950 M Provider Department Center 07/09/202362717-PGC DRAW STATION KXT Draw [facility] Family History Problem Relation Age of Onset Diabetes Mother Hypertension Mother Coronary artery disease Mother Other Mother Cystic kidney disease Mother Hypertension Father Skin cancer Father Cystic kidney disease Father Cystic kidney disease Sister Heart disease Brother ALS Brother Cystic kidney disease Brother Family Status - Relation Status Age at Mother Father Sister Brother Normal [facility] MAGNESIUMon 07-09-2023 Magnesium [Mass/Vol] 1.5 mg/dL Low 1.9-2.7 [facility] Comment on above: Performed By: #### L [id number] #### [facility] [address] [place] [address] OSMOLALITYon 07-09-2023 OSMOLALITY MEASURED 272 mOsm/kg Low 275-295 [facility] Comment on above: Result Comment: Test Performed by [employer] [address] [place] [address] - Released 07/09/2023 16:01 Performed By: #### L [id number] #### [facility] ([facility]) [address] [place] [address] Orders Onlyon 07-09-2023 Orders Only [id number] Roger Suarez 1950 M Date Provider Department [...] Age at Mother Father Sister Brother Normal [facility] PHOSPHORUSon 07-09-2023 Magnesium [Mass/Vol] 4.6 mg/dL Normal 2.5-5.0 [facility] Comment on above: Performed By: #### L [id number] #### [facility] ([facility]) [address] [place] [address] TACROLIMUS LEVELon Tacrolimus (Bld) [Mass/Vol] 4.3 ng/mL Low 5.0-20.0 [facility] Comment on above: Result Comment: The GARCIA PLATE ROLLER Tacrolimus assay is a delayed one-step immunoassay for the quantitative determination of tacrolimus in human whole blood using the chemiluminescent microparticle immunoassay (CMIA) technology with flexible assay protocols, referred to as Chemiflex. Performed By: #### L [id number] ####[facility] ([facility])[address] [place] [address] URIC ACIDon 07-09-2023 Magnesium [Mass/Vol] 6.2 mg/dL Normal 4.4-7.6 [facility] Comment on above: Performed By: #### L [id number] #### [facility] ([facility]) [address] [place] [address] Orders Onlyon 06-11-2023 Orders Only [id number] Roger Suarez 1950 M Date Provider Department Center 06/11/[address] [facility]RO [facility] Family History Problem Relation Age of Onset Diabetes Mother Hypertension Mother Coronary artery disease Mother Other Mother Cystic kidney disease Mother Hypertension Father Skin cancer Father Cystic kidney disease Father Cystic kidney disease Sister Heart disease Brother ALS Brother Cystic kidney disease Brother Family Status - Relation Status Age at Mother Father Sister Brother Normal [facility] BILIRUBIN, DIRECTon 05-19-19 24 Magnesium [Mass/Vol] 0.1 mg/dL Normal 0-0.2 [facility] Comment on above: Performed By: #### L [id number] #### [facility] ([facility]) [address] [place] [address] CBC WITH AUTO DIFFERENTIALon 05-19-2023 Basophils (Bld) [#/Vol] 0.03 10*3/uL Normal 0.00-0.20 [facility] Comment on above: Performed By: #### L [id number] #### [facility] ([facility]) [address] [place] [address] Basophils/100 WBC (Bld) 0.4 % Normal 0.0-1.0 [facility] Comment on above: Performed By: #### L [id number] #### [facility] ([facility]) [address] [place] [address] Eosinophils (Bld) [#/Vol] 0.18 10*3/uL Normal 0.00-0.50 [facility] Comment on above: Performed By: #### L [id number] #### [facility] ([facility]) [address] [place] [address] Eosinophils/100 WBC (Bld) 2.7 % Normal 0.0-6.0 [facility] Comment on above: Performed By: #### L [id number] #### [facility] ([facility]) [address] [place] [address] Erythrocyte distribution width (RBC) [Ratio] 13.7 % Normal 11.5-15.0 [facility] Comment on above: Performed By: #### L [id number] #### [facility] [address] [place] [address] ERYTHROCYTE MEAN CORPUSCULAR HEMOGLOBIN CONCENTRATION (G/DL) BY AUTOMATED 32.9 g/dL Normal 32.0-35.0 [facility] Comment on above: Performed By: #### L [id number] #### [facility] [address] [place] [address] Hematocrit (Bld) [Volume fraction] 34.0 % Low 39.0-55.0 [facility] Comment on above: Performed By: #### L [id number] #### [facility] [address] [place] [address] Hemoglobin (Bld) [Mass/Vol] 11.2 g/dL Low 13.0-17.0 [facility] Comment on above: Performed By: #### L [id number] #### [facility] ([facility]) [address] [place] [address] Immature granulocytes (Bld) [#/Vol] 0.02 10*3/uL Normal 0.00-0.20 [facility] Comment on above: Performed By: #### L [id number] #### [facility] ([facility]) [address] [place] [address] Immature granulocytes/100 WBC (Bld) 0.3 % Normal 0.0-1.0 [facility] Comment on above: Performed By: #### L [id number] #### [facility] ([facility]) [address] [place] [address] Lymphocytes (Bld) [#/Vol] 0.80 10*3/uL Low 1.20-4.00 [facility] Comment on above: Performed By: #### L [id number] #### [facility] ([facility]) [address] [place] [address] Lymphocytes/100 WBC (Bld) 11.9 % Low 20.0-45.0 [facility] Comment on above: Performed By: #### L [id number] #### [facility] ([facility]) [address] [place] [address] MCH (RBC) [Entitic mass] 29.4 pg Normal 27.0-33.0 [facility] Comment on above: Performed By: #### L [id number] #### [facility] ([facility]) [address] [place] [address] MCV (RBC) [Entitic vol] 89.2 fL Normal 82.0-98.0 [facility] Comment on above: Performed By: #### L [id number] #### [facility] ([facility]) [address] [place] [address] Monocytes (Bld) [#/Vol] 0.54 10*3/uL Normal 0.10-1.00 [facility] Comment on above: Performed By: #### L [id number] #### [facility] ([facility]) [address] [place] [address] Monocytes/100 WBC (Bld) 8.0 % Normal 5.0-12.0 [facility] Comment on above: Performed By: #### L [id number] #### [facility] ([facility]) [address] [place] [address] Neutrophils (Bld) [#/Vol] 5.14 10*3/uL Normal 1.60-7.60 [facility] Comment on above: Performed By: #### L [id number] #### [facility] [address] [place] [address] Neutrophils/100 WBC (Bld) 76.7 % High 40.0-72.0 [facility] Comment on above: Performed By: #### L [id number] #### [facility] [address] [place] [address] NRBC (PER 100 WBCS) BY AUTOMATED COUNT 0.0 % Normal 0 [facility] Comment on above: Performed By: #### L [id number] #### [facility] ([facility]) [address] [place] [address] PLATELETS (10*3/UL) IN BLOOD AUTOMATED COUNT 271 10*3/uL Normal 150-400 [facility] Comment on above: Performed By: #### L [id number] #### [facility] ([facility]) [address] [place] [address] RBC (Bld) [#/Vol] 3.81 10*6/uL Low 4.20-5.70 [facility] Comment on above: Performed By: #### L [id number] #### [facility] ([facility]) [address] [place] [address] WBC (Bld) [#/Vol] 6.71 10*3/uL Normal 4.00-10.60 [facility] Comment on above: Performed By: #### L [id number] #### [facility] ([facility]) [address] [place] [address] COMPREHENSIVE METABOLIC PANE Claudio 05-19-2023 Albumin [Mass/Vol] 4.5 g/dL Normal 3.5-5.7 [facility] Comment on above: Performed By: #### L [id number] #### [facility] ([facility]) [address] [place] [address] ALP [Catalytic activity/Vol] 85 U/L Normal 34-104 [facility] Comment on above: Performed By: #### L [id number] #### [facility] ([facility]) [address] [place] [address] ALT [Catalytic activity/Vol] 10 U/L Normal 7-52 [facility] Comment on above: Performed By: #### L [id number] #### [facility] ([facility]) [address] [place] [address] Anion gap [Moles/Vol] 15 mmol/L Normal 7-20 [facility] Comment on above: Performed By: #### L [id number] #### [facility] ([facility]) [address] [place] [address] AST [Catalytic activity/Vol] 13 U/L Normal 13-39 [facility] Comment on above: Performed By: #### L [id number] #### [facility] (BEAKER) [address] [place] [address] Bilirubin [Mass/Vol] 0.5 mg/dL Normal 0.3-1.0 [facility] Comment on above: Performed By: #### L [id number] #### [facility] ([facility]) [address] [place] [address] Calcium [Mass/Vol] 9.1 mg/dL Normal 8.6-10.3 [facility] Comment on above: Performed By: #### L [id number] #### [facility] [address] [place] [address] Chloride [Moles/Vol] 99 mmol/L Normal 98-107 [facility] Comment on above: Performed By: #### L [id number] #### [facility] ([facility]) [address] [place] [address] CO2 [Moles/Vol] 22 mmol/L Normal 21-31 [facility] Comment on above: Performed By: #### L [id number] #### [facility] [address] [place] [address] Creatinine [Mass/Vol] 0.85 mg/dL Normal 0.70-1.30 [facility] Comment on above: Performed By: #### L [id number] #### [facility] ([facility]) [address] [place] [address] GLOMERULAR FILTRATION RATE ML/MIN/1.73 SQ M.PREDICTED 92.9 mL/min/1.73m*2 Normal >60.0 [facility] Comment on above: Result Comment: The [facility]???s estimated glomerular filtration rate (eGFR) will [...] individuals. Performed By: #### L [id number] #### [facility] ([facility]) [address] [place] [address] Glucose [Mass/Vol] 107 mg/dL High 70-100 [facility] Comment on above: Performed By: #### L [id number] #### [facility] ([facility]) [address] [place] [address] Potassium [Moles/Vol] 4.9 mmol/L Normal 3.5-5.1 [facility] Comment on above: Performed By: #### L [id number] #### [facility] ([facility]) [address] [place] [address] Protein [Mass/Vol] 6.7 g/dL Normal 6.0-8.3 [facility] Comment on above: Performed By: #### L [id number] #### [facility] ([facility]) [address] [place] [address] Sodium [Moles/Vol] 131 mmol/L Low 136-145 [facility] Comment on above: Performed By: #### L [id number] #### [facility] [address] [place] [address] Urea nitrogen [Mass/Vol] 15 mg/dL Normal 7-25 [facility] Comment on above: Performed By: #### L [id number] #### [facility] ([facility]) [address] [place] [address] UREA NITROGEN/CREATININE (MASS RATIO) IN SER/PLAS 17.6 Normal [facility] Comment on above: Performed By: #### L [id number] #### [facility] ([facility]) [address] [place] [address] Follow-Upon 05-19-2023 Follow-Up [id number] Roger Suarez 1950 M Date Provider Department [...] at Mother Father Sister Brother Level of Service:24158 ND OFFICE/OUTPATIENT ESTABLISHED MOD MDM 30 MIN Reason for Visit and Comments: Kidney Follow-up [[id number]] - No concerns Normal [facility] LIPID PANELon 05-19-2023 CHOL/HDL 1.9 mg/dL Normal [facility] Comment on above: Performed By: #### L [id number] #### [facility] ([employer]) [address] [place] [address] Cholesterol [Mass/Vol] 88 mg/dL Low 120-200 [facility] Comment on above: Performed By: #### L [id number] #### [facility] ([employer]) [address] [place] [address] Magnesium [Mass/Vol] 53 mg/dL Normal 40-149 [facility] Comment on above: Result Comment: TRIG LYCERIDE REFERENCE RANGE: 20 YEARS AND OLDER CARDIOVASCULAR RISK LESS THAN 150 mg/dL LOW RISK 150 TO 199 mg/dL BORDERLINE RISK 200 mg/dL AND GREATER HIGH RISK Performed By: #### L [id number] #### [facility] ([employer]) [address] [place] [address] Magnesium [Mass/Vol] 30 mg/dL Normal 0-160 [facility] Comment on above: Performed By: #### L [id number] #### [facility] ([employer]) [address] [place] [address] Magnesium [Mass/Vol] 47 mg/dL Normal 23-92 [facility] Comment on above: Performed By: #### L [id number] #### [facility] ([facility]AKER) [address] [place] [address] NON HDL CHOL. (LDL+VLDL) 41 Normal [facility] Comment on above: Performed By: #### L [id number] #### [facility] [address] [place] [address] TOTAL VLDL-C 11 mg/dL Normal 0-40 [facility] Comment on above: Performed By: #### L [id number] #### [facility] ([facility]) [address] [place] [address] Labon 05-19-2023 Lab [id number] Roger Suarez 1950 M Date Provider Department Center 05/19/202306995-HEQ DRAW STATION KXT Draw [facility] Family History Problem Relation Age of Onset Diabetes Mother Hypertension Mother Coronary artery disease Mother Other Mother Cystic kidney disease Mother Hypertension Father Skin cancer Father Cystic kidney disease Father Cystic kidney disease Sister Heart disease Brother ALS Brother Cystic kidney disease Brother Family Status - Relation Status Age at Mother Father Sister Brother Normal [facility] MAGNESIUMon 05-19-2023 Magnesium [Mass/Vol] 1.3 mg/dL Low 1.9-2.7 [facility] Comment on above: Performed By: #### L [id number] #### [facility] ([facility]) [address] [place] [address] Orders Onlyon 05-19-2023 Orders Only [id number] Roger Suarez 1950 M Date Provider Department [...] Age at Mother Father Sister Brother Normal [facility] PHOSPHORUSon 05-19-2023 Magnesium [Mass/Vol] 4.5 mg/dL Normal 2.5-5.0 [facility] Comment on above: Performed By: #### L [id number] #### [facility] ([facility]) [address] [place] [address] TACROLIMUS LEVELon Tacrolimus (Bld) [Mass/Vol] 6.0 ng/mL Normal 5.0-20.0 [facility] Comment on above: Result Comment: The GARCIA PLATE [employer]LLER Tacrolimus assay is a delayed one-step immunoassay for the quantitative determination of tacrolimus in human whole blood using the chemiluminescent microparticle immunoassay (CMIA) technology with flexible assay protocols, referred to as Chemiflex. Performed By: #### L [id number] #### [facility] ([facility]) [address] [place] [address] TESTOSTERONE, FREE AND TOTAL , AND SHBGon 05-19-2023 SEX HORMONE BINDING GLOBULIN (NMOL/L) IN SER/PLAS 61 nmol/L Normal 11-80 [facility] Comment on above: Performed By: #### L [id number] #### [facility] [address] [place] [address] TESTOSTERONE (NG/DL) IN SER/PLAS 440 ng/dL Normal 220-1000 [facility] Comment on above: Performed By: #### L [id number] #### [facility] [address] [place] [address] TESTOSTERONE FREE (NG/ML) IN SER/PLAS 59.5 pg/mL Normal 47-244 [facility] Comment on above: Result Comment: The concentration of free testosterone is derived from a mathematical expression based on the constant for the binding of testosterone to albumin and/or sex hormone binding globulin. Test Performed by [employer] [address] [place] [address] - Released 05/19/2023 15:01 Performed By: #### L [id number] #### [facility] [address] [place] [address] URIC ACIDon 05-19-2023 Magnesium [Mass/Vol] 6.2 mg/dL Normal 4.4-7.6 [facility] Comment on above: Performed By: #### L [id number] #### [facility] ([facility]AKER) [address] [place] [address] Documentationon 05-14-2023 Documentation [id number] Roger Suarez Tyson 1950 M Date Provider Department Center 05/14/2023 [...] Status Age at Mother Father Sister Brother [facility] 30on 04-30-2023 30 Daily Case Managemen t Update Multidisciplinary rounds have been completed. Barriers to Discharge: MR for DC Home to follow up with Wellness Specialist on Friday. New Diabetic Supply Scripts have been faxed to his pharmacy in [place], [place]. Diet: Dietary Orders (From admission, onward) Start Ordered 04/29/23 171 Special Kitchen Request Once Comments: Please send a salad with ham, roque, shredded cheddar cheese and onions with [place] dressing. Layered chocolate cake and a diet [...] Consult? Answer: New diagnosis DM2 04/30/23 1109 [facility] 30 Problem: Pain - Adul t Goal: [...] and maintained or improved Outcome: Progressing Normal [facility] BASIC METABOLIC PANELon 12-2 0-2022 Anion gap [Moles/Vol] 12 mmol/L Normal 7-20 [facility] Comment on above: Performed By: #### L [id number] #### [facility] ([facility]) [address] [place] [address] Calcium [Mass/Vol] 8.7 mg/dL Normal 8.6-10.3 [facility] Comment on above: Performed By: #### L [id number] #### [facility] ([facility]) [address] [place] [address] Chloride [Moles/Vol] 102 mmol/L Normal 98-107 [facility] Comment on above: Performed By: #### L [id number] #### [facility] ([facility]) [address] [place] [address] CO2 [Moles/Vol] 24 mmol/L Normal 21-31 [facility] Comment on above: Performed By: #### L [id number] #### [facility] ([facility]) [address] [place] [address] Creatinine [Mass/Vol] 0.80 mg/dL Normal 0.70-1.30 [facility] Comment on above: Performed By: #### L [id number] #### [facility] ([facility]) [address] [place] [address] GLOMERULAR FILTRATION RATE ML/MIN/1.73 SQ M.PREDICTED 94.6 mL/min/1.73m*2 Normal >60.0 [facility] Comment on above: Result Comment: The [facility]???s estimated glomerular filtration rate (eGFR) will [...] individuals. Performed By: #### L [id number] #### [facility] ([facility]) [address] [place] [address] Glucose [Mass/Vol] 160 mg/dL High 70-100 [facility] Comment on above: Performed By: #### L [id number] #### [facility] ([facility]) [address] [place] [address] Potassium [Moles/Vol] 4.2 mmol/L Normal 3.5-5.1 [facility] Comment on above: Performed By: #### L [id number] #### [facility] ([facility]) [address] [place] [address] Sodium [Moles/Vol] 134 mmol/L Low 136-145 [facility] Comment on above: Performed By: #### L [id number] #### [facility] ([facility]) [address] [place] [address] Urea nitrogen [Mass/Vol] 14 mg/dL Normal 7-25 [facility] Comment on above: Performed By: #### L [id number] #### [facility] ([facility]) [address] [place] [address] UREA NITROGEN/CREATININE (MASS RATIO) IN SER/PLAS 17.5 Normal [facility] Comment on above: Performed By: #### L [id number] #### [facility] ([facility]) [address] [place] [address] CBCon 04-30-2023 Erythrocyte distribution width (RBC) [Ratio] 13.0 % Normal 11.5-15.0 [facility] Comment on above: Performed By: #### L [id number] #### [facility] ([facility]) [address] [place] [address] ERYTHROCYTE MEAN CORPUSCULAR HEMOGLOBIN CONCENTRATION (G/DL) BY AUTOMATED 33.9 g/dL Normal 32.0-35.0 [facility] Comment on above: Performed By: #### L [id number] #### [facility] ([facility]AKER) [address] [place] [address] Hematocrit (Bld) [Volume fraction] 28.0 % Low 39.0-55.0 [facility] Comment on above: Performed By: #### L [id number] #### [facility] ([facility]) [address] [place] [address] Hemoglobin (Bld) [Mass/Vol] 9.5 g/dL Low 13.0-17.0 [facility] Comment on above: Performed By: #### L [id number] #### [facility] [address] [place] [address] MCH (RBC) [Entitic mass] 29.3 pg Normal 27.0-33.0 [facility] Comment on above: Performed By: #### L [id number] #### [facility] ([facility]) [address] [place] [address] MCV (RBC) [Entitic vol] 86.4 fL Normal 82.0-98.0 [facility] Comment on above: Performed By: #### L [id number] #### [facility] ([facility]) [address] [place] [address] PLATELETS (10*3/UL) IN BLOOD AUTOMATED COUNT 232 10*3/uL Normal 150-400 [facility] Comment on above: Performed By: #### L [id number] #### [facility] ([facility]) [address] [place] [address] RBC (Bld) [#/Vol] 3.24 10*6/uL Low 4.20-5.70 [facility] Comment on above: Performed By: #### L [id number] #### [facility] ([facility]) [address] [place] [address] WBC (Bld) [#/Vol] 5.11 10*3/uL Normal 4.00-10.60 [facility] Comment on above: Performed By: #### L [id number] #### [facility] ([facility]) [address] [place] [address] MAGNESIUMon 04-30-2023 Magnesium [Mass/Vol] 1.2 mg/dL Low 1.9-2.7 [facility] Comment on above: Performed By: #### L [id number] #### [facility] ([facility]) [address] [place] [address] PHOSPHORUSon 04-30-2023 Magnesium [Mass/Vol] 3.3 mg/dL Normal 2.5-5.0 [facility] Comment on above: Performed By: #### L [id number] #### [facility] ([facility]) [address] [place] [address] POCT GLUCOSE METER UNSOLICIT ED RESULTSon 04-30-2023 Glucose [Mass/Vol] 251 mg/dL High 70-105 [facility] Comment on above: Order Comment: Waive d Testing in the ED is performed under the ED CLIA certificate #[id number]. Result Comment: trob [email or web address] Performed By: #### L [id number] #### [facility] ([facility]) [address] [place] [address] Glucose [Mass/Vol] 146 mg/dL High 70-105 [facility] Comment on above: Order Comment: Waive d Testing in the ED is performed under the ED CLIA certificate #[id number]. Result Comment: trob [email or web address] Performed By: #### L [id number] #### [facility] ([facility]) [address] [place] [address] TACROLIMUS LEVELon Tacrolimus (Bld) [Mass/Vol] 6.1 ng/mL Normal 5.0-20.0 [facility] Comment on above: Result Comment: The [employer] Tacrolimus assay is a delayed one-step immunoassay for the quantitative determination of tacrolimus in human whole blood using the chemiluminescent microparticle immunoassay (CMIA) technology with flexible assay protocols, referred to as Chemiflex. Performed By: #### L [id number] #### [facility] (BEAKER) [address] [place] [address] 30on 04-29-2023 30 Daily Case Managemen t [...] roque, shredded cheddar cheese and onions with [place] dressing. Layered chocolate cake and a diet cristiano vincenzo. 04/29/23 [id number] Regular Diet HF/Cirrhosis/CKD/ESRD (2gm NA); Diabetic Male [...] Consultation Consultation and Management 04/27/23 2313 Normal [facility] BASIC METABOLIC PANELon 04-11 Anion gap [Moles/Vol] 13 mmol/L Normal 7-20 [facility] [facility] Comment on above: Performed By: #### L [id number] ####[facility] ([facility])[address] [place] [address] Calcium [Mass/Vol] 8.7 mg/dL Normal 8.6-10.3 [facility] Comment on above: Performed By: #### L [id number] ####[facility] ([facility])[address] [place] [address] Chloride [Moles/Vol] 103 mmol/L Normal 98-107 [facility] Comment on above: Performed By: #### L [id number] ####[facility] [place] [address] CO2 [Moles/Vol] 22 mmol/L Normal 21-31 [facility] Comment on above: Performed By: #### L [id number] ####[facility] ([facility])[address] [place] [address] Creatinine [Mass/Vol] 0.96 mg/dL Normal 0.70-1.30 [facility] Comment on above: Performed By: #### L [id number] ####[facility] ([facility])[address] [place] [address] GLOMERULAR FILTRATION RATE ML/MIN/1.73 SQ M.PREDICTED 84.5 mL/min/1.73m*2 Normal >60.0 [facility] Comment on above: Result Comment: The [facility]???s estimated glomerular filtration rate (eGFR) will [...] of individuals. Performed By: #### L [id number] ####[facility] ([facility] [place] [address] Glucose [Mass/Vol] 175 mg/dL High 70-100 [facility] Comment on above: Performed By: #### L [id number] ####[facility] ([facility] [place] [address] Potassium [Moles/Vol] 4.5 mmol/L Normal 3.5-5.1 [facility] Comment on above: Performed By: #### L [id number] ####[facility] ([facility] [place] [address] Sodium [Moles/Vol] 133 mmol/L Low 136-145 [facility] Comment on above: Performed By: #### L [id number] ####[facility] ([facility] [place] [address] Urea nitrogen [Mass/Vol] 29 mg/dL High 7-25 [facility] Comment on above: Performed By: #### L [id number] ####[facility] ([facility])[address] [place] [address] UREA NITROGEN/CREATININE (MASS RATIO) IN SER/PLAS 30.2 Normal [facility] Comment on above: Performed By: #### L [id number] ####[facility] ([facility])[address] [place] [address] Anion gap [Moles/Vol] 16 mmol/L Normal 7-20 [facility] Comment on above: Performed By: #### L [id number] ####[facility] [place] [address] Calcium [Mass/Vol] 8.7 mg/dL Normal 8.6-10.3 [facility] Comment on above: Performed By: #### L [id number] ####[facility] [place] [address] Chloride [Moles/Vol] 102 mmol/L Normal 98-107 [facility] Comment on above: Performed By: #### L [id number] ####[facility] (BEAKER)[address] [place] [address] CO2 [Moles/Vol] 19 mmol/L Low 21-31 [facility] Comment on above: Performed By: #### L [id number] ####[facility] ([facility]ER)[address] [place] [address] Creatinine [Mass/Vol] 1.02 mg/dL Normal 0.70-1.30 [facility] Comment on above: Performed By: #### L [id number] ####[facility] ([facility])[address] [place] [address] GLOMERULAR FILTRATION RATE ML/MIN/1.73 SQ M.PREDICTED 78.6 mL/min/1.73m*2 Normal >60.0 [facility] Comment on above: Result Comment: The [facility]???s estimated glomerular filtration rate (eGFR) will [...] of individuals. Performed By: #### L [id number] ####[facility] ([facility])[address] [place] [address] Glucose [Mass/Vol] 206 mg/dL High 70-100 [facility] Comment on above: Performed By: #### L [id number] ####[facility] ([facility])[address] [place] [address] Potassium [Moles/Vol] 4.8 mmol/L Normal 3.5-5.1 [facility] Comment on above: Performed By: #### L [id number] ####[facility] ([facility])[address] [place] [address] Sodium [Moles/Vol] 132 mmol/L Low 136-145 [facility] Comment on above: Performed By: #### L [id number] ####[facility] ([facility])[address] [place] [address] Urea nitrogen [Mass/Vol] 31 mg/dL High 7-25 [facility] Comment on above: Performed By: #### L [id number] ####[facility] ([facility])[address] [place] [address] UREA NITROGEN/CREATININE (MASS RATIO) IN SER/PLAS 30.4 Normal [facility] Comment on above: Performed By: #### L [id number] ####[facility] ([facility])[address] [place] [address] POCT GLUCOSE METER UNSOLICIT ED RESULTSon 04-29-2023 Glucose [Mass/Vol] 151 mg/dL High 70-105 [facility] Comment on above: Order Comment: Waive d Testing in the ED is performed under the ED CLIA certificate #[id number]. Result Comment: [email or web address] dic Performed By: #### L [id number] ####[facility] ([facility])[address] [place] [address] Glucose [Mass/Vol] 166 mg/dL High 70-105 [facility] Comment on above: Order Comment: Waive d Testing in the ED is performed under the ED CLIA certificate #[id number]. Result Comment: lzar ate Performed By: #### L [id number] ####[facility] ([facility])[address] [place] [address] Glucose [Mass/Vol] 147 mg/dL High 70-105 [facility] Comment on above: Order Comment: Waive d Testing in the ED is performed under the ED CLIA certificate #[id number]. Result Comment: [email or web address] Performed By: #### L [id number] #### [facility] ([facility]) [address] [place] [address] Glucose [Mass/Vol] 145 mg/dL High 70-105 [facility] Comment on above: Order Comment: Waive d Testing in the ED is performed under the ED CLIA certificate #[id number]. Result Comment: scam [email or web address] Performed By: #### L [id number] #### [facility] ([facility]) [address] [place] [address] TACROLIMUS LEVELon 3 Tacrolimus (Bld) [Mass/Vol] 8.6 ng/mL Normal 5.0-20.0 [facility] Comment on above: Result Comment: The [employer] Tacrolimus assay is a delayed one-step immunoassay for the quantitative determination of tacrolimus in human whole blood using the chemiluminescent microparticle immunoassay (CMIA) technology with flexible assay protocols, referred to as Chemiflex. Performed By: #### L [id number] #### [facility] [address] [place] [address] BASIC METABOLIC PANELon 04-11 Anion gap [Moles/Vol] 17 mmol/L Normal 7-20 [facility] Comment on above: Performed By: #### L [id number] ####[facility] ([facility])[address] [place] [address] Calcium [Mass/Vol] 8.6 mg/dL Normal 8.6-10.3 [facility] Comment on above: Performed By: #### L [id number] ####[facility] ([facility])[address] [place] [address] Chloride [Moles/Vol] 102 mmol/L Normal 98-107 [facility] Comment on above: Performed By: #### L [id number] ####[facility] ([facility])[address] [place] [address] CO2 [Moles/Vol] 20 mmol/L Low 21-31 [facility] Comment on above: Performed By: #### L [id number] ####[facility] [place] [address] Creatinine [Mass/Vol] 1.07 mg/dL Normal 0.70-1.30 [facility] Comment on above: Performed By: #### L [id number] ####[facility] ([facility])[address] [place] [address] GLOMERULAR FILTRATION RATE ML/MIN/1.73 SQ M.PREDICTED 74.2 mL/min/1.73m*2 Normal >60.0 [facility] Comment on above: Result Comment: The [facility]???s estimated glomerular filtration rate (eGFR) will [...] of individuals. Performed By: #### L [id number] ####[facility] ([facility])[address] [place] [address] Glucose [Mass/Vol] 144 mg/dL High 70-100 [facility] Comment on above: Performed By: #### L [id number] ####[facility] ([facility])[address] [place] [address] Potassium [Moles/Vol] 4.7 mmol/L Normal 3.5-5.1 [facility] Comment on above: Performed By: #### L [id number] ####[facility] ([facility])[address] [place] [address] Sodium [Moles/Vol] 134 mmol/L Low 136-145 [facility] Comment on above: Performed By: #### L [id number] ####[facility] ([facility])[address] [place] [address] Urea nitrogen [Mass/Vol] 34 mg/dL High 7-25 [facility] Comment on above: Performed By: #### L [id number] ####[facility] [place] [address] UREA NITROGEN/CREATININE (MASS RATIO) IN SER/PLAS 31.8 Normal [facility] Comment on above: Performed By: #### L [id number] ####[facility] ([facility])[address] [place] [address] Anion gap [Moles/Vol] 17 mmol/L Normal 7-20 [facility] Comment on above: Performed By: #### L [id number] ####[facility] ([facility])[address] [place] [address] Calcium [Mass/Vol] 8.7 mg/dL Normal 8.6-10.3 [facility] Comment on above: Performed By: #### L [id number] ####[facility] ([facility])[address] [place] [address] Chloride [Moles/Vol] 100 mmol/L Normal 98-107 [facility] Comment on above: Performed By: #### L [id number] ####[facility] ([facility])[address] [place] [address] CO2 [Moles/Vol] 19 mmol/L Low 21-31 [facility] Comment on above: Performed By: #### L [id number] ####[facility] ([facility])[address] [place] [address] Creatinine [Mass/Vol] 1.20 mg/dL Normal 0.70-1.30 [facility] Comment on above: Performed By: #### L [id number] ####[facility] ([facility])[address] [place] [address] GLOMERULAR FILTRATION RATE ML/MIN/1.73 SQ M.PREDICTED 64.7 mL/min/1.73m*2 Normal >60.0 [facility] Comment on above: Result Comment: The [facility]???s estimated glomerular filtration rate (eGFR) will [...] of individuals. Performed By: #### L [id number] ####[facility] ([facility])[address] [place] [address] Glucose [Mass/Vol] 237 mg/dL High 70-100 [facility] Comment on above: Performed By: #### L [id number] ####[facility] ([facility]ER)[address] [place] [address] Potassium [Moles/Vol] 4.4 mmol/L Normal 3.5-5.1 [facility] Comment on above: Performed By: #### L [id number] ####[facility] ([facility]ER)[address] [place] [address] Sodium [Moles/Vol] 132 mmol/L Low 136-145 [facility] Comment on above: Performed By: #### L [id number] ####[facility] ([facility]ER)[address] [place] [address] Urea nitrogen [Mass/Vol] 40 mg/dL High 7-25 [facility] Comment on above: Performed By: #### L [id number] ####[facility] (BE[facility]ER)[address] [place] [address] UREA NITROGEN/CREATININE (MASS RATIO) IN SER/PLAS 33.3 Normal [facility] Comment on above: Performed By: #### L [id number] ####[facility] ([facility]ER)[address] [place] [address] Anion gap [Moles/Vol] 20 mmol/L Normal 7-20 [facility] Comment on above: Performed By: #### L [id number] #### [facility] ([facility]) [address] [place] [address] Calcium [Mass/Vol] 8.6 mg/dL Normal 8.6-10.3 [facility] Comment on above: Performed By: #### L [id number] #### [facility] ([facility]) [address] [place] [address] Chloride [Moles/Vol] 101 mmol/L Normal 98-107 [facility] Comment on above: Performed By: #### L [id number] #### [facility] ([facility]ER) [address] [place] [address] CO2 [Moles/Vol] 14 mmol/L Invalid Interpretation Code 21-31 [facility] Comment on above: Performed By: #### L [id number] #### [facility] ([facility]) [address] [place] [address] Creatinine [Mass/Vol] 1.32 mg/dL High 0.70-1.30 [facility] Comment on above: Performed By: #### L [id number] #### [facility] ([facility]) [address] [place] [address] GLOMERULAR FILTRATION RATE ML/MIN/1.73 SQ M.PREDICTED 57.7 mL/min/1.73m*2 Low >60.0 [facility] Comment on above: Result Comment: [facility]???s estimated glomerular filtration rate (eGFR) will [...] individuals. Performed By: #### L [id number] #### [facility] ([facility]) [address] [facility] [place] [address] Glucose [Mass/Vol] 332 mg/dL High 70-100 [facility] Comment on above: Performed By: #### L [id number] #### [facility] ([facility]) [address] [place] [address] Potassium [Moles/Vol] 4.6 mmol/L Normal 3.5-5.1 [facility] Comment on above: Performed By: #### L [id number] #### [facility] ([facility]) [address] [place] [address] Sodium [Moles/Vol] 130 mmol/L Low 136-145 [facility] Comment on above: Performed By: #### L [id number] #### [facility] ([facility]) [address] [place] [address] Urea nitrogen [Mass/Vol] 43 mg/dL High 7-25 [facility] Comment on above: Performed By: #### L [id number] #### [facility] [address] [place] [address] UREA NITROGEN/CREATININE (MASS RATIO) IN SER/PLAS 32.6 Normal [facility] Comment on above: Performed By: #### L [id number] #### [facility] [address] [place] [address] Anion gap [Moles/Vol] 22 mmol/L High 7-20 [facility] Comment on above: Performed By: #### L [id number] #### [facility] ([facility]) [address] [place] [address] Calcium [Mass/Vol] 8.9 mg/dL Normal 8.6-10.3 [facility] Comment on above: Performed By: #### L [id number] #### [facility] [address] [place] [address] Chloride [Moles/Vol] 99 mmol/L Normal 98-107 [facility] Comment on above: Performed By: #### L [id number] #### [facility] [address] [place] [address] CO2 [Moles/Vol] 13 mmol/L Invalid Interpretation Code [facility] Comment on above: Performed By: #### L [id number] #### [facility] [address] [place] [address] Creatinine [Mass/Vol] 1.33 mg/dL High 0.70-1.30 [facility] Comment on above: Performed By: #### L [id number] #### [facility] ([facility]) [address] [place] [address] GLOMERULAR FILTRATION RATE ML/MIN/1.73 SQ M.PREDICTED 57.1 mL/min/1.73m*2 Low >60.0 [facility] Comment on above: Result Comment: [facility]???s estimated glomerular filtration rate (eGFR) will [...] individuals. Performed By: #### L [id number] #### [facility] ([facility]) [address] [place] [address] Glucose [Mass/Vol] 324 mg/dL High 70-100 [facility] Comment on above: Performed By: #### L [id number] #### [facility] ([facility]) [address] [place] [address] Potassium [Moles/Vol] 5.7 mmol/L High 3.5-5.1 [facility] Comment on above: Performed By: #### L [id number] #### [facility] ([facility]) [address] [place] [address] Sodium [Moles/Vol] 128 mmol/L Low 136-145 [facility] Comment on above: Performed By: #### L [id number] #### [facility] ([facility]) [address] [place] [address] Urea nitrogen [Mass/Vol] 45 mg/dL High 7-25 [facility] Comment on above: Performed By: #### L [id number] #### [facility] ([facility]) [address] [place] [address] UREA NITROGEN/CREATININE (MASS RATIO) IN SER/PLAS 33.8 Normal [facility] Comment on above: Performed By: #### L [id number] #### [facility] ([facility]) [address] [place] [address] Anion gap [Moles/Vol] 23 mmol/L High 7-20 [facility] [place] [facility] Comment on above: Performed By: #### L [id number] #### [facility] ([facility]) [address] [place] [address] Calcium [Mass/Vol] 8.8 mg/dL Normal 8.6-10.3 [facility] Comment on above: Performed By: #### L [id number] #### [facility] ([facility]) [address] [place] [address] Chloride [Moles/Vol] 99 mmol/L Normal 98-107 [facility] Comment on above: Performed By: #### L [id number] #### [facility] ([facility]) [address] [place] [address] CO2 [Moles/Vol] 13 mmol/L Invalid Interpretation Code [facility] Comment on above: Performed By: #### L [id number] #### [facility] ([facility]) [address] [place] [address] Creatinine [Mass/Vol] 1.31 mg/dL High 0.70-1.30 [facility] Comment on above: Performed By: #### L [id number] #### [facility] ([facility]) [address] [place] [address] GLOMERULAR FILTRATION RATE ML/MIN/1.73 SQ M.PREDICTED 58.2 mL/min/1.73m*2 Low >60.0 [facility] Comment on above: Result Comment: [facility]???s estimated glomerular filtration rate (eGFR) will [...] individuals. Performed By: #### L [id number] #### [facility] ([facility]) [address] [place] [address] Glucose [Mass/Vol] 264 mg/dL High 70-100 [facility] Comment on above: Performed By: #### L [id number] #### [facility] ([facility]) [address] [place] [address] Potassium [Moles/Vol] 5.7 mmol/L High 3.5-5.1 [facility] Comment on above: Performed By: #### L [id number] #### [facility] ([facility]) [address] [place] [address] Sodium [Moles/Vol] 129 mmol/L Low 136-145 [facility] Comment on above: Performed By: #### L [id number] #### [facility] ([facility]) [address] [place] [address] Urea nitrogen [Mass/Vol] 44 mg/dL High 7-25 [facility] Comment on above: Performed By: #### L [id number] #### [facility] ([facility]) [address] [place] [address] UREA NITROGEN/CREATININE (MASS RATIO) IN SER/PLAS 33.6 Normal [facility] Comment on above: Performed By: #### L [id number] #### [facility] ([facility]) [address] [place] [address] BETA HYDROXYBUTYRATEon 04-28 BETA HYDROXYBUTYRATE (MMOL/L) IN SER/PLAS 6.22 mmol/L High 0.02-0.27 [facility] Comment on above: Performed By: #### L [id number] #### [facility] ([facility]) [address] [place] [address] BLOOD CULTUREon 04-28-2023 Bacteria identified Cx Nom (Bld) No growth at 5 days Normal [facility] Comment on above: Performed By: #### L [id number] #### [facility] [address] [place] [address] Bacteria identified Cx Nom (Bld) No growth at 5 days Normal [facility] Comment on above: Order Comment: From a different site than #1. Performed By: #### L [id number] ####[facility] ([facility])[address] [place] [address] CMV DNA, QUALITATIVE, PCRon 04-28-2023 CYTOMEGALOVIRUS QUAL. PCR Not detected Normal [facility] Comment on above: Result Comment: NOT DETECTED - A negative result does not rule out the presence of PCR inhibitors in the patient specimen or assay specific nucleic acid in concentrations below the level of detection by the assay. INTERPRETIVE INFORMATION: Cytomegalovirus Detection by PCR This test was developed and its performance characteristics determined by [employer]. It has not been cleared or approved by the [place] Food and Drug Administration. This test was performed in a CLIA certified laboratory and is intended for clinical purposes. Performed By: [employer] [address] [place] [address] Application Development Director: René Wick MD, PhD CLIA Number: [id number] Performed By: #### L [id number] #### [facility] ([facility]) [address] [place] [address] CYTOMEGALOVIRUS SOURCE Blood Normal [facility] Comment on above: Performed By: #### L [id number] #### [facility] ([facility]) [address] [place] [address] CONSULTon 04-28-2023 CONSULT - Attestation signed by [...] as a transfer from outside hospital in [place] for concerns of possible DKA, hyponatremia, and [...] nursing note reviewed. Exam conducted with a advertising sales representative present (Dr. Pan). Constitutional: General: He is [...] No ed (more content not included)... Normal [facility] HEMOGLOBIN A1Con 04-28-2023 Glucose [Mass/Vol] 372 mg/dL Normal [facility] Comment on above: Order Comment: NO VA RIANT Performed By: #### L [id number] ####[facility] ([facility])[address] [place] [address] HbA1c (Bld) [Mass fraction] 14.6 % High 4.0-6.0 [facility] Comment on above: Order Comment: NO VA RIANT Performed By: #### L [id number] ####[facility] ([facility])[address] [place] [address] NURSNOTEon 04-28-[address] Nguyen ( nephrology) regarding placing powerglide if pt a candidate, ok with placement on right arm. Normal [facility] OSMOLALITYon 04-28-2023 OSMOLALITY MEASURED 310 mOsm/kg High 275-295 [facility] Comment on above: Result Comment: Test Performed by [facility] [place] [address] - Released 04/28/2023 22:42 Performed By: #### L [id number] #### [facility] ([facility]) [address] [place] [address] OSMOLALITY, URINEon 04-28-20 23 OSMOLALITY, URINE 446 mOsm/kg Normal 80-1300 [facility] Comment on above: Result Comment: Test Performed by [facility] [place] [address] - Abmzjfsi 04/29/2023 03:35 Performed By: #### L [id number] #### [facility] ([facility]) [address] [place] [address] POCT GLUCOSE METER UNSOLICIT ED RESULTSon 04-28-2023 Glucose [Mass/Vol] 141 mg/dL High 70-105 [facility] Comment on above: Order Comment: Waive d Testing in the ED is performed under the ED CLIA certificate #[id number]. Result Comment: ladarius benoit Performed By: #### L [id number] ####[facility] ([facility])[address] [place] [address] Glucose [Mass/Vol] 99 mg/dL Normal 70-105 [facility] Comment on above: Order Comment: Waive d Testing in the ED is performed under the ED CLIA certificate #[id number]. Result Comment: besc obe Performed By: #### L [id number] ####[facility] ([facility])[address] [place] [address] Glucose [Mass/Vol] 115 mg/dL High 70-105 [facility] Comment on above: Order Comment: Waive d Testing in the ED is performed under the ED CLIA certificate #[id number]. Result Comment: besc obe Performed By: #### L [id number] ####[facility] ([facility])[address] [place] [address] Glucose [Mass/Vol] 145 mg/dL High 70-105 [facility] Comment on above: Order Comment: Waive d Testing in the ED is performed under the ED CLIA certificate #[id number]. Result Comment: wwar rad Performed By: #### L [id number] ####[facility] ([facility]AKER)[address] [place] [address] Glucose [Mass/Vol] 165 mg/dL High 70-105 [facility] Comment on above: Order Comment: Waive d Testing in the ED is performed under the ED CLIA certificate #[id number]. Result Comment: besc obe Performed By: #### L [id number] #### [facility] ([facility]) [address] [place] [address] Glucose [Mass/Vol] 203 mg/dL High 70-105 [facility] Comment on above: Order Comment: Waive d Testing in the ED is performed under the ED CLIA certificate #[id number]. Result Comment: [email or web address] Performed By: #### L [id number] #### [facility] ([facility]) [address] [place] [address] Glucose [Mass/Vol] 247 mg/dL High 70-105 [facility] Comment on above: Order Comment: Waive d Testing in the ED is performed under the ED CLIA certificate #[id number]. Result Comment: wwar rad Performed By: #### L [id number] #### [facility] ([facility]) [address] [place] [address] Glucose [Mass/Vol] 315 mg/dL High 70-105 [facility] Comment on above: Order Comment: Waive d Testing in the ED is performed under the ED CLIA certificate #[id number]. Result Comment: wwar rad Performed By: #### L [id number] #### [facility] ([facility]) [address] [place] [address] Glucose [Mass/Vol] 356 mg/dL High 70-105 [facility] Comment on above: Order Comment: Waive d Testing in the ED is performed under the ED CLIA certificate #[id number]. Result Comment: [email or web address] rbo Performed By: #### L [id number] #### [facility] ([facility]) [address] [place] [address] Glucose [Mass/Vol] 312 mg/dL High 70-105 [facility] Comment on above: Order Comment: Waive d Testing in the ED is performed under the ED CLIA certificate #[id number]. Result Comment: wwar rad Performed By: #### L [id number] #### [facility] ([facility]) [address] [place] [address] PTH, INTACTon 04-28-2023 PARATHYRIN INTACT (PG/ML) IN SER/PLAS 48 pg/mL Normal 12- [facility] Comment on above: Performed By: #### L [id number] ####[facility] ([facility])[address] [place] [address] TACROLIMUS LEVELon Tacrolimus (Bld) [Mass/Vol] 11.6 ng/mL Normal 5.0-20.0 [facility] Comment on above: Result Comment: The [employer] Tacrolimus assay is a delayed one-step immunoassay for the quantitative determination of tacrolimus in human whole blood using the chemiluminescent microparticle immunoassay (CMIA) technology with flexible assay protocols, referred to as Chemiflex. Performed By: #### L [id number] #### [facility] ([facility]) [address] [place] [address] TROPONIN Ion 04-28-2023 Troponin I.cardiac [Mass/Vol] 0.02 ng/mL Normal 0.00-0.04 [facility] Comment on above: Performed By: #### L [id number] #### [facility] ([facility]) [address] [place] [address] Troponin I.cardiac [Mass/Vol] 0.02 ng/mL Normal 0.00-0.04 [facility] Comment on above: Performed By: #### L [id number] #### [facility] ([facility]) [address] [place] [address] APTTon 04-27-2023 ACTIVATED PARTIAL THROMBOPLASTIN TIME IN PPP BY COAGULATION ASSAY 26.1 Seconds Normal 25.0-35.0 [facility] Comment on above: Result Comment: Clin ical significance of the APTT is questionable in the presence of heparin. Performed By: #### L [id number] #### [facility] [address] [place] [address] B-TYPE NATRIURETIC PEPTIDEon 04-27-2023 Natriuretic peptide B (Bld) [Mass/Vol] 98 pg/mL Normal 0-100 [facility] Comment on above: Performed By: #### L [id number] ####[facility] ([facility])[address] [place] [address] BLOOD CULTUREon 04-27-2023 Bacteria identified Cx Nom (Bld) No growth at 5 days Normal [facility] Comment on above: Performed By: #### L [id number] #### [facility] [address] [place] [address] Order Comment: From a different site than #1. CBC WITH AUTO DIFFERENTIALon 04-27-2023 Basophils (Bld) [#/Vol] 0.04 10*3/uL Normal 0.00-0.20 [facility] Comment on above: Performed By: #### L [id number] #### [facility] ([facility]) [address] [place] [address] Basophils/100 WBC (Bld) 0.4 % Normal 0.0-1.0 [facility] Comment on above: Performed By: #### L [id number] #### [facility] ([facility]) [address] [place] [address] Eosinophils (Bld) [#/Vol] 0.09 10*3/uL Normal 0.00-0.50 [facility] Comment on above: Performed By: #### L [id number] #### [facility] ([facility]) [address] [place] [address] Eosinophils/100 WBC (Bld) 1.0 % Normal 0.0-6.0 [facility] Comment on above: Performed By: #### L [id number] #### [facility] ([facility]) [address] [place] [address] Erythrocyte distribution width (RBC) [Ratio] 13.1 % Normal 11.5-15.0 [facility] Comment on above: Performed By: #### L [id number] #### [facility] ([facility]) [address] [place] [address] ERYTHROCYTE MEAN CORPUSCULAR HEMOGLOBIN CONCENTRATION (G/DL) BY AUTOMATED 33.9 g/dL Normal 32.0-35.0 [facility] Comment on above: Performed By: #### L [id number] #### [facility] ([facility]) [address] [place] [address] Hematocrit (Bld) [Volume fraction] 32.7 % Low 39.0-55.0 [facility] Comment on above: Performed By: #### L [id number] #### [facility] ([facility]) [address] [place] [address] Hemoglobin (Bld) [Mass/Vol] 11.1 g/dL Low 13.0-17.0 [facility] Comment on above: Performed By: #### L [id number] #### [facility] ([facility]) [address] [place] [address] Immature granulocytes (Bld) [#/Vol] 0.15 10*3/uL Normal 0.00-0.20 [facility] Comment on above: Performed By: #### L [id number] #### [facility] ([facility]) [address] [place] [address] Immature granulocytes/100 WBC (Bld) 1.6 % High 0.0-1.0 [facility] Comment on above: Performed By: #### L [id number] #### [facility] ([facility]) [address] [place] [address] Lymphocytes (Bld) [#/Vol] 1.04 10*3/uL Low 1.20-4.00 [facility] Comment on above: Performed By: #### L [id number] #### [facility] ([facility]) [address] [place] [address] Lymphocytes/100 WBC (Bld) 11.3 % Low 20.0-45.0 [facility] Comment on above: Performed By: #### L [id number] #### [facility] ([facility]) [address] [place] [address] MCH (RBC) [Entitic mass] 29.3 pg Normal 27.0-33.0 [facility] Comment on above: Performed By: #### L [id number] #### [facility] ([facility]) [address] [place] [address] MCV (RBC) [Entitic vol] 86.3 fL Normal 82.0-98.0 [facility] Comment on above: Performed By: #### L [id number] #### [facility] ([facility]) [address] [place] [address] Monocytes (Bld) [#/Vol] 0.96 10*3/uL Normal 0.10-1.00 [facility] Comment on above: Performed By: #### L [id number] #### [facility] ([facility]) [address] [place] [address] Monocytes/100 WBC (Bld) 10.5 % Normal 5.0-12.0 [facility] Comment on above: Performed By: #### L [id number] #### [facility] ([facility]) [address] [place] [address] Neutrophils (Bld) [#/Vol] 6.90 10*3/uL Normal 1.60-7.60 [facility] Comment on above: Performed By: #### L [id number] #### [facility] ([facility]) [address] [place] [address] Neutrophils/100 WBC (Bld) 75.2 % High 40.0-72.0 [facility] Comment on above: Performed By: #### L [id number] #### [facility] ([facility]) [address] [place] [address] NRBC (PER 100 WBCS) BY AUTOMATED COUNT 0.0 % Normal 0 [facility] Comment on above: Performed By: #### L [id number] #### [facility] ([facility]) [address] [place] [address] PLATELETS (10*3/UL) IN BLOOD AUTOMATED COUNT 301 10*3/uL Normal 150-400 [facility] Comment on above: Performed By: #### L [id number] #### [facility] ([facility]) [address] [place] [address] RBC (Bld) [#/Vol] 3.79 10*6/uL Low 4.20-5.70 [facility] Comment on above: Performed By: #### L [id number] #### [facility] ([facility]) [address] [place] [address] WBC (Bld) [#/Vol] 9.18 10*3/uL Normal 4.00-10.60 [facility] Comment on above: Performed By: #### L [id number] #### [facility] ([facility]) [address] [place] [address] COMPREHENSIVE METABOLIC PANE Claudio 04-27-2023 Albumin [Mass/Vol] 3.8 g/dL Normal 3.5-5.7 [facility] Comment on above: Performed By: #### L [id number] #### [facility] ([facility]) [address] [place] [address] ALP [Catalytic activity/Vol] 100 U/L Normal 34-104 [facility] Comment on above: Performed By: #### L [id number] #### [facility] ([facility]) [address] [place] [address] ALT [Catalytic activity/Vol] 12 U/L Normal 7-52 [facility] Comment on above: Performed By: #### L [id number] #### [facility] ([facility]) [address] [place] [address] Anion gap [Moles/Vol] 15 mmol/L Normal 7-20 [facility] Comment on above: Performed By: #### L [id number] #### [facility] ([facility]) [address] [place] [address] Performed By: #### L [id number] ####[facility] ([facility])[address] [place] [address] AST [Catalytic activity/Vol] 12 U/L Low 13-39 [facility] Comment on above: Performed By: #### L [id number] #### [facility] ([facility]) [address] [place] [address] Bilirubin [Mass/Vol] 0.4 mg/dL Normal 0.3-1.0 [facility] Comment on above: Performed By: #### L [id number] #### [facility] ([facility]) [address] [place] [address] Calcium [Mass/Vol] 8.6 mg/dL Normal 8.6-10.3 [facility] Comment on above: Performed By: #### L [id number] #### [facility] ([facility]) [address] [place] [address] Performed By: #### L [id number] ####[facility] ([facility]ER)[address] [place] [address] Chloride [Moles/Vol] 101 mmol/L Normal 98-107 [facility] Comment on above: Performed By: #### L [id number] #### [facility] ([facility]) [address] [place] [address] Performed By: #### L [id number] ####[facility] ([facility]AKER)[address] [place] [address] CO2 [Moles/Vol] 18 mmol/L Low 21-31 [facility] Comment on above: Performed By: #### L [id number] #### [facility] ([facility]) [address] [place] [address] Performed By: #### L [id number] ####[facility] ([facility]AKER)[address] [place] [address] Creatinine [Mass/Vol] 1.36 mg/dL High 0.70-1.30 [facility] Comment on above: Performed By: #### L [id number] #### [facility] ([facility]ER) [address] [place] [address] Performed By: #### L [id number] ####[facility] ([facility])[address] [place] [address] GLOMERULAR FILTRATION RATE ML/MIN/1.73 SQ M.PREDICTED 55.6 mL/min/1.73m*2 Low >60.0 [facility] Comment on above: Result Comment: The [facility]???s estimated glomerular filtration rate (eGFR) will [...] individuals. Performed By: #### L [id number] #### [facility] ([facility]) [address] [place] [address] Performed By: #### L [id number] ####[facility] ([facility])[address] [place] [address] Glucose [Mass/Vol] 149 mg/dL High 70-100 [facility] Comment on above: Performed By: #### L [id number] #### [facility] ([facility]) [address] [place] [address] Performed By: #### L [id number] ####[facility] ([facility])[address] [place] [address] Potassium [Moles/Vol] 4.8 mmol/L Normal 3.5-5.1 [facility] Comment on above: Performed By: #### L [id number] #### [facility] ([facility]) [address] [place] [address] Performed By: #### L [id number] ####[facility] ([facility])[address] [place] [address] Protein [Mass/Vol] 6.0 g/dL Normal 6.0-8.3 [facility] Comment on above: Performed By: #### L [id number] #### [facility] ([facility]) [address] [place] [address] Sodium [Moles/Vol] 129 mmol/L Low 136-145 [facility] Comment on above: Performed By: #### L [id number] #### [facility] ([facility]) [address] [place] [address] Performed By: #### L [id number] ####[facility] ([facility])[address] [place] [address] Urea nitrogen [Mass/Vol] 45 mg/dL High 7-25 [facility] Comment on above: Performed By: #### L [id number] #### [facility] ([facility]) [address] [place] [address] Performed By: #### L [id number] ####[facility] ([facility])[address] [place] [address] UREA NITROGEN/CREATININE (MASS RATIO) IN SER/PLAS 33.1 Normal [facility] Comment on above: Performed By: #### L [id number] #### [facility] ([facility]) [address] [place] [address] Performed By: #### L [id number] ####[facility] ([facility])[address] [place] [address] CREATININE, URINE, RANDOMon 04-27-2023 Creatinine (U) [Mass/Vol] 100.0 mg/dL Normal 26-299 [facility] Comment on above: Performed By: #### L [id number] #### [facility] ([facility]) [address] [place] [address] LACTIC ACID WITH 4 HOUR REFL EXon 04-27-2023 LACTATE (MMOL/L) IN SER/PLAS 0.8 mmol/L Normal 0.5-2.2 [facility] Comment on above: Performed By: #### L [id number] #### [facility] ([facility]) [address] [place] [address] MAGNESIUMon 04-27-2023 Magnesium [Mass/Vol] 1.7 mg/dL Low 1.9-2.7 [facility] Comment on above: Performed By: #### L [id number] #### [facility] [address] [place] [address] PHOSPHORUSon 04-27-2023 Magnesium [Mass/Vol] 3.7 mg/dL Normal 2.5-5.0 [facility] Comment on above: Performed By: #### L [id number] ####[facility] ([employer])[address] [place] [address] POCT GLUCOSE METER UNSOLICIT ED RESULTSon 04-27-2023 Glucose [Mass/Vol] 139 mg/dL High 70-105 [facility] Comment on above: Order Comment: Waive d Testing in the ED is performed under the ED CLIA certificate #[id number]. Result Comment: raza brenner Performed By: #### L [id number] #### [facility] ([facility]) [address] [place] [address] PROTEIN, URINE, RANDOMon Protein (U) [Mass/Vol] 47.2 mg/dL Normal [facility] Comment on above: Result Comment: Ther e are no established reference values for random urine specimens. Performed By: #### L [id number] #### [facility] ([facility]) [address] [place] [address] PROTIME-INRon 04-27-2023 INR IN PPP BY COAGULATION ASSAY 1.13 High 0.90-1.10 [facility] Comment on above: Result Comment: ACCC [...] RANGE. CHEST 1995;108:[id number]. Performed By: #### L [id number] #### [facility] [address] [place] [address] PROTHROMBIN TIME (PT) IN PPP BY COAGULATION ASSAY 14.5 Seconds Normal 12.3-14.8 [facility] Comment on above: Performed By: #### L [id number] #### [facility] [address] [place] [address] SODIUM, URINE, RANDOMon 04-11 Sodium (U) [Moles/Vol] 35 mmol/L Normal [facility] Comment on above: Performed By: #### L [id number] ####[facility] ([facility])[address] [place] [address] TROPONIN Ion 04-27-2023 Troponin I.cardiac [Mass/Vol] 0.04 ng/mL Normal 0.00-0.04 [facility] Comment on above: Performed By: #### L [id number] #### [facility] ([facility]) [address] [place] [address] URINALYSIS MICROSCOPIC WITH REFLEX CULTUREon 04-27-2023 CASTS IN URINE Normal [facility] Comment on above: Performed By: #### L [id number] #### [facility] ([facility]) [address] [place] [address] CRYSTALS IN URINE Normal [facility] Comment on above: Performed By: #### L [id number] #### [facility] ([facility]) [address] [place] [address] OTHER MICROSCOPIC ELEMENTS Normal [facility] Comment on above: Performed By: #### L [id number] #### [facility] ([facility]) [address] [place] [address] RBC (#/HPF) IN URINE SEDIMENT 21-50 Abnormal None Seen [facility] Comment on above: Performed By: #### L [id number] #### [facility] ([facility]) [address] [place] [address] SQUAMOUS EPITHELIAL CELLS (#/HPF) IN URINE SEDIMENT Occasional Normal None Seen, Occasional [facility] Comment on above: Performed By: #### L [id number] #### [facility] ([facility]) [address] [place] [address] WBC (LEUKOCYTE) (#/HPF) IN URINE SEDIMENT 6-10 Abnormal None Seen [facility] Comment on above: Performed By: #### L [id number] #### [facility] ([facility]) [address] [place] [address] URINALYSIS WITH REFLEX CULTU REon 04-27-2023 BILIRUBIN, TOTAL PRESENCE IN URINE Negative Normal Negative [facility] Comment on above: Performed By: #### L [id number] ####[facility] ([facility])[address] [place] [address] Clarity (U) Clear Normal Clear [facility] Comment on above: Performed By: #### L [id number] ####[facility] ([facility])[address] [place] [address] Color (U) Yellow Normal Yellow [facility] Comment on above: Performed By: #### L [id number] ####[facility] ([facility])[address] [place] [address] Glucose (U) [Mass/Vol] Negative Normal Negative [facility] Comment on above: Performed By: #### L [id number] ####[facility] ([facility])[address] [place] [address] HEMOGLOBIN PRESENCE IN URINE Moderate Abnormal Negative [facility] Comment on above: Performed By: #### L [id number] ####[facility] ([facility])[address] [place] [address] Ketones Ql (U) 20 mg/dL Abnormal Negative [facility] Comment on above: Performed By: #### L [id number] ####[facility] ([facility])[address] [place] [address] LEUKOCYTE ESTERASE PRESENCE IN URINE BY TEST STRIP Trace Abnormal Negative [facility] Comment on above: Performed By: #### L [id number] ####[facility] ([facility])[address] [place] [address] NITRITE PRESENCE IN URINE Negative Normal Negative [facility] Comment on above: Performed By: #### L [id number] ####[facility] ([facility])[address] [place] [address] pH (U) 5.0 [pH] Normal 5.0-8.0 [facility] Comment on above: Performed By: #### L [id number] ####[facility] ([facility])[address] [place] [address] Protein (U) [Mass/Vol] 30 mg/dL Abnormal Negative [facility] Comment on above: Performed By: #### L [id number] ####[facility] ([facility])[address] [place] [address] Specific gravity (U) [Rel density] 1.015 Normal 1.015-1.020 [facility] Comment on above: Performed By: #### L [id number] ####[facility] ([facility])[address] [place] [address] Office Visiton 04-22-2023 Follow-up visit [id number] Roger Suarez 1950 M Date Provider Department Center 04/22/2023 BENJA FIGUEROA [facility] Family History Problem Relation Age of Onset Diabetes Mother Hypertension Mother Coronary artery disease Mother Other Mother Cystic kidney disease Mother Hypertension Father Skin cancer Father Cystic kidney disease Father Cystic kidney disease Sister Heart disease Brother ALS Brother Cystic kidney disease Brother Family Status - Relation Status Age at Mother Father Sister Brother Level of Service:26392 ND OFFICE/OUTPATIENT ESTABLISHED LOW MDM 20-29 MIN Normal [facility] Documentationon 04-07-2023 Documentation [id number] Roger Suarez 1950 M Date Provider Department Center 04/07/2023 750-NALDO MITCHELL TXP None Family History Problem Relation Age of Onset Diabetes Mother Hypertension Mother Coronary artery disease Mother Other Mother Cystic kidney disease Mother Hypertension Father Skin cancer Father Cystic kidney disease Father Cystic kidney disease Sister Heart disease Brother ALS Brother Cystic kidney disease Brother Family Status - Relation Status Age at Mother Father Sister Brother Normal [facility] Orders Onlyon 04-02-2023 Orders Only [id number] Roger Suarez 1950 M Date Provider Department [...] Age at Mother Father Sister Brother Normal [facility] FK506 (TACROLIMUS) WHOLE BLO ODon 10-06-2022 Tacrolimus (FK506), Blood 3.8 ng/mL Normal 2.0-20.0 [facility] Comment on above: Result Comment: Trou gh (immediately following transplant) 15.0 . Trough (steady state, 2 weeks or more after transplant): 3.0 - 8.0 . Performed by LC-MS/MS technology. Performed By: #### U CLINT, CMP, LIPID, DBIL, PHOS, MG #### [facility] [address] [address] [address] Brea Causey BILIRUBIN CONJUGATED (DIRECT )on 10-03-2022 BILI, CONJUGATED 0.1 mg/dL Normal 0.0-0.2 [facility] Comment on above: Performed By: #### C BC #### [facility] [address] [address] [address] Brea Causey CBC AUTO DIFFon 10-03-2022 BASO # 0.0 103/ul Normal 0.0-0.1 [facility] Comment on above: Performed By: #### U CLINT, CMP, LIPID, DBIL, PHOS, MG #### [facility] [address] [address] [address] Brea Causey Basophils/100 WBC (Bld) 0.5 % Normal 0.2-2.0 [facility] Comment on above: Performed By: #### U CLINT, CMP, LIPID, DBIL, PHOS, MG #### [facility] [address] [place] [address] Dr. Brea Causey EO # 0.1 103/ul Normal 0.0-0.7 [facility] Comment on above: Performed By: #### U CLINT, CMP, LIPID, DBIL, PHOS, MG #### [facility] [address] [place] [address] Dr. Brea Causey Eosinophils/100 WBC (Bld) 2.3 % Normal 0.9-7.0 [facility] Comment on above: Performed By: #### U CLINT, CMP, LIPID, DBIL, PHOS, MG #### [facility] [address] [place] [address] Dr. Brea Causey Erythrocyte distribution width (RBC) [Ratio] 13.2 % Normal 11.0-15.0 [facility] Comment on above: Performed By: #### U CLINT, CMP, LIPID, DBIL, PHOS, MG #### [facility] [address] [place] [address] Dr. Brea Causey Hematocrit (Bld) [Volume fraction] 35.0 % Critically low 42.0-54.0 [facility] Comment on above: Performed By: #### U CLINT, CMP, LIPID, DBIL, PHOS, MG #### [facility] [address] [place] [address] Dr. Brea Causey Hemoglobin (Bld) [Mass/Vol] 11.7 g/dL Critically low 14.0-18.0 [facility] Comment on above: Performed By: #### U CLINT, CMP, LIPID, DBIL, PHOS, MG #### [facility] [address] [place] [address] Dr. Brea Causey IG # 0.06 10e3/ul Critically high 0.00-0.03 [facility] Comment on above: Performed By: #### U CLINT, CMP, LIPID, DBIL, PHOS, MG #### [facility] [address] [place] [address] Dr. Brea Causey IG % 1.1 % Critically high 0.0-0.5 [facility] Comment on above: Performed By: #### U CLINT, CMP, LIPID, DBIL, PHOS, MG #### [facility] [address] [place] [address] Dr. Brea Causey LYMPH # 0.8 103/ul Critically low 1.2-3.8 [facility] Comment on above: Performed By: #### U CLINT, CMP, LIPID, DBIL, PHOS, MG #### [facility] [address] [place] [address] Dr. Brea Causey Lymphocytes/100 WBC (Bld) 14.9 % Critically low 20.5-60.0 [facility] Comment on above: Performed By: #### U CLINT, CMP, LIPID, DBIL, PHOS, MG #### [facility] [address] [place] [address] Dr. Brea Causey MANUAL DIFF REQ NO Normal [facility] Comment on above: Performed By: #### U CLINT, CMP, LIPID, DBIL, PHOS, MG #### [facility] [address] [place] [address] Dr. Brea Causey MCH (RBC) [Entitic mass] 28.8 pg Normal 25.9-34.0 [facility] Comment on above: Performed By: #### U CLINT, CMP, LIPID, DBIL, PHOS, MG #### [facility] [address] [place] [address] Dr. Brea Causey MCHC (RBC) [Mass/Vol] 33.4 g/dL Normal 29.9-35.2 [facility] Comment on above: Performed By: #### U CLINT, CMP, LIPID, DBIL, PHOS, MG #### [facility] [address] [place] [address] Dr. Brea Causey MCV (RBC) [Entitic vol] 86.2 fL Normal 80.0-94.0 [facility] Comment on above: Performed By: #### U CLINT, CMP, LIPID, DBIL, PHOS, MG #### [facility] [address] [address] [address] Brea Causey MONO # 0.5 103/ul Normal 0.3-0.8 [facility] Comment on above: Performed By: #### U CLINT, CMP, LIPID, DBIL, PHOS, MG #### [facility] [address] [address] [address] Brea Causey Monocytes/100 WBC (Bld) 9.1 % Normal 1.7-12.0 [facility] Comment on above: Performed By: #### U CLINT, CMP, LIPID, DBIL, PHOS, MG #### [facility] [address] [address] [address] Brea Causey NEUT # 4.1 103/ul Normal 1.4-6.5 [facility] Comment on above: Performed By: #### U CLINT, CMP, LIPID, DBIL, PHOS, MG #### [facility] [address] [place] [address] Dr. Brea Causey Neutrophils/100 WBC (Bld) 72.1 % Normal 43.0-75.0 [facility] Comment on above: Performed By: #### U CLINT, CMP, LIPID, DBIL, PHOS, MG #### [facility] [address] [place] [address] Dr. Brea Causey Platelet mean volume (Bld) [Entitic vol] 9.0 fL Critically low 9.5-13.5 [facility] Comment on above: Performed By: #### U CLINT, CMP, LIPID, DBIL, PHOS, MG #### [facility] [address] [place] [address] Dr. Brea Causey PLT 211 103/ul Normal 150-450 [facility] Comment on above: Performed By: #### U CLINT, CMP, LIPID, DBIL, PHOS, MG #### [facility] [address] [place] [address] Dr. Brea Causey RBC 4.06 106/ul Critically low 4.70-6.10 [facility] Comment on above: Performed By: #### U CLINT, CMP, LIPID, DBIL, PHOS, MG #### [facility] [address] [address] [address] Brea Causey WBC 5.6 103/ul Normal 4.0-11.0 [facility] Comment on above: Performed By: #### U CLINT, CMP, LIPID, DBIL, PHOS, MG #### [facility] [address] [address] [address] Brea Causey LIPID PROFILEon 10-03-2022 CHOL-HDL RATIO NORM SEE BELOW Normal [facility] Comment on above: Result Comment: 3.3 - 4.4 LOW RISK 4.4 - 7.1 AVERAGE RISK 7.1 - 11.0 MODERATE RISK >11.0 HIGH RISK Performed By: #### C BC #### [facility] [address] [place] [address] Dr. Brea Causey Cholesterol [Mass/Vol] 93 mg/dL Normal <=200 [facility] Comment on above: Performed By: #### C BC #### [facility] [address] [place] [address] Dr. Brea Causey Cholesterol in HDL [Mass/Vol] 43 mg/dL Normal 40-60 [facility] Comment on above: Performed By: #### C BC #### [facility] [address] [place] [address] Dr. Brea Causey Cholesterol in LDL [Mass/Vol] 37.6 mg/dL Normal [facility] Comment on above: Performed By: #### C BC #### [facility] [address] [place] [address] Dr. Brea Causey Cholesterol.total/Cho lesterol in HDL [Mass ratio] 2.2 {ratio} Normal [facility] Comment on above: Performed By: #### C BC #### [facility] [address] [place] [address] Dr. Brea Causey HDL NORMAL > or = 60 mg/dl - LO W CARDIOVASCULAR RISK <40 mg/dl - HIGH CARDIOVASCULAR RISK Normal [facility] Comment on above: Performed By: #### C BC #### [facility] [address] [place] [address] Dr. Brea Causey LDL CALC NORMAL SEE BELOW Normal [facility] Comment on above: Result Comment: <100 mg/dl OPTIMAL 100 - 129 mg/dl NEAR OR ABOVE OPTIMAL 130 - 159 mg/dl BORDERLINE HIGH 160 - 189 mg/dl HIGH >190 mg/dl VERY HIGH Performed By: #### C BC #### [facility] [address] [place] [address] Dr. Brea Causey Triglyceride [Mass/Vol] 62 mg/dL Normal <=150 [facility] Comment on above: Performed By: #### C BC #### [facility] [address] [place] [address] Dr. Brea Causey VLDL CALC 12.4 mg/dL Normal [facility] Comment on above: Performed By: #### C BC #### [facility] [address] [place] [address] Dr. Brea Causey MAGNESIUMon 10-03-2022 Magnesium [Mass/Vol] 1.5 mg/dL Critically low 1.8-2.4 [facility] Comment on above: Performed By: #### C BC #### [facility] [address] [place] [address] Dr. Brea Causey PHOSPHORUSon 10-03-2022 Phosphate [Mass/Vol] 4.4 mg/dL Normal 2.6-4.7 [facility] Comment on above: Performed By: #### C BC #### [facility] [address] [place] [address] Dr. Brea Causey PROF 14(COMP METB)on 023 Albumin [Mass/Vol] 3.8 g/dL Normal 3.4-5.0 [facility] Comment on above: Performed By: #### C BC #### [facility] [address] [place] [address] Dr. Brea Causey Albumin/Globulin [Mass ratio] 1.1 {ratio} Normal [facility] Comment on above: Performed By: #### C BC #### [facility] [address] [place] [address] Dr. Brea Causey ALP [Catalytic activity/Vol] 190 U/L Critically high 46-116 [facility] Comment on above: Performed By: #### C BC #### [facility] [address] [place] [address] Dr. Brea Causey ALT [Catalytic activity/Vol] 26 U/L Normal 16-63 [facility] Comment on above: Performed By: #### C BC #### [facility] [address] [place] [address] Dr. Brea Causey Anion gap [Moles/Vol] 15.3 mmol/L Normal Th [facility] Comment on above: Performed By: #### C BC #### [facility] [address] [place] [address] Dr. Brea Causey AST [Catalytic activity/Vol] 23 U/L Normal 15-37 [facility] Comment on above: Performed By: #### C BC #### [facility] [address] [place] [address] Dr. Brea Causey Bilirubin [Mass/Vol] 0.4 mg/dL Normal 0.2-1.0 [facility] Comment on above: Performed By: #### C BC #### [facility] [address] [place] [address] Dr. Brea Causey Calcium [Mass/Vol] 7.8 mg/dL Critically low 8.5-10.[address] [facility] Comment on above: Performed By: #### C BC #### [facility] [address] [place] [address] Dr. Brea Causey Chloride [Moles/Vol] 97 mmol/L Critically low 98-107 [facility] Comment on above: Performed By: #### C BC #### [facility] [address] [place] [address] Dr. Brea Causey CO2 [Moles/Vol] 25.6 mmol/L Normal 21.0-32.0 [facility] Comment on above: Performed By: #### C BC #### [facility] [address] [place] [address] Dr. Brea Causey Creatinine [Mass/Vol] 1.03 mg/dL Normal 0.70-1.30 [facility] Comment on above: Performed By: #### C BC #### [facility] [address] [address] [address] Brea Causey EGFR-AF CITIZ[place] >60 Normal >=60 [facility] Comment on above: Performed By: #### C BC #### [facility] [address] [address] [address] Brea Causey EGFR-NON AF CITIZEN OF [place] >60 Normal >=60 [facility] Comment on above: Performed By: #### C BC #### [facility] [address] [address] [address] Brea Causey Globulin (S) [Mass/Vol] 3.6 g/dL Normal [facility] Comment on above: Performed By: #### C BC #### [facility] [address] [place] [address] Dr. Brea Causey Glucose [Mass/Vol] 188 mg/dL Critically high 74-106 [facility] Comment on above: Performed By: #### C BC #### [facility] [address] [address] [address] Brea Causey Potassium [Moles/Vol] 4.9 mmol/L Normal 3.5-5.1 [facility] Comment on above: Performed By: #### C BC #### [facility] [address] [place] [address] Dr. Brea Causey Protein [Mass/Vol] 7.4 g/dL Normal 6.4-8.2 [facility] Comment on above: Performed By: #### C BC #### [facility] [address] [address] [address] Brea Causey Sodium [Moles/Vol] 133 mmol/L Critically low 136-[address] [facility] Comment on above: Performed By: #### C BC #### [facility] [address] [place] [address] Dr. Brea Causey Urea nitrogen [Mass/Vol] 11.0 mg/dL Normal 7.0-18.0 [facility] Comment on above: Performed By: #### C BC #### [facility] [address] [place] [address] Dr. Brea Causey Urea nitrogen/Creatinine [Mass ratio] 10.7 mg/mg Normal [facility] Comment on above: Performed By: #### C BC #### [facility] [address] [place] [address] Dr. Brea Causey URIC ACID SERUMon 10-03-2022 Urate [Mass/Vol] 5.7 mg/dL Normal 3.5-7.2 [facility] Comment on above: Performed By: #### C BC #### [facility] [address] [place] [address] Dr. Brea Causey BK VIRUS PCR QUANTon 023 BKV DNA QUANT PCR PLASMA Negative Normal Negative [facility] Comment on above: Result Comment: No B K DNA detected. . The linear range of the assay is 22 - 100,000,000 IU/mL. Performed By: #### U CLINT, CMP, LIPID, DBIL, PHOS, MG #### [facility] [address] [place] [address] Dr. Brea Causey Log10 BKV DNA Plasma Normal [facility] Comment on above: Performed By: #### U CLINT, CMP, LIPID, DBIL, PHOS, MG #### [facility] [address] [place] [address] Dr. Brea Causey FK506 (TACROLIMUS) WHOLE BLO ODon 09-02-2022 Tacrolimus (FK506), Blood 3.8 ng/mL Normal 2.0-20.0 [facility] Comment on above: Result Comment: Trou gh (immediately following transplant) 15.0 . Trough (steady state, 2 weeks or more after transplant): 3.0 - 8.0 . Performed by LC-MS/MS technology. Performed By: #### U CLINT, CMP, LIPID, DBIL, PHOS, MG #### [facility] [address] [place] [address] Dr. Brea Causey TESTOSTERONE, FREE,DIRECT, T OTALon 09-01-2022 Free Testosterone(Direct) 9.7 pg/mL Normal 6.6-18.1 [facility] Comment on above: Result Comment: Perf ormed at: BN Performed By: #### U CLINT, CMP, LIPID, DBIL, PHOS, MG #### [facility] [address] [place] [address] Dr. Brea Causey Testosterone [Mass/Vol] 565 ng/dL Normal 264-916 [facility] Comment on above: Result Comment: Adul t male reference interval is based on a population of healthy nonobese males (BMI <30) between 19 and 39 years old. daniel Harris.al. JCEM 2017,102;[id number]. PMID: [id number]. Performed at: CB Performed By: #### U CLINT, CMP, LIPID, DBIL, PHOS, MG #### [facility] [address] [place] [address] Dr. Brea Causey BILIRUBIN CONJUGATED (DIRECT )on 08-30-2022 BILI, CONJUGATED 0.1 mg/dL Normal 0.0-0.2 [facility] Comment on above: Performed By: #### U CLINT, CMP, LIPID, DBIL, PHOS, MG #### [facility] [address] [place] [address] Dr. Brea Causey CBC AUTO DIFFon 08-30-2022 BASO # 0.0 103/ul Normal 0.0-0.1 [facility] Comment on above: Performed By: #### U CLINT, CMP, LIPID, DBIL, PHOS, MG #### [facility] [address] [place] [address] Dr. Brea Causey Basophils/100 WBC (Bld) 0.7 % Normal 0.2-2.0 [facility] Comment on above: Performed By: #### U CLINT, CMP, LIPID, DBIL, PHOS, MG #### [facility] [address] [place] [address] Dr. Brea Causey EO # 0.2 103/ul Normal 0.0-0.7 [facility] Comment on above: Performed By: #### U CLINT, CMP, LIPID, DBIL, PHOS, MG #### [facility] [address] [place] [address] Dr. Brea Causey Eosinophils/100 WBC (Bld) 3.6 % Normal 0.9-7.0 [facility] Comment on above: Performed By: #### U CLINT, CMP, LIPID, DBIL, PHOS, MG #### [facility] [address] [place] [address] Dr. Brea Causey Erythrocyte distribution width (RBC) [Ratio] 13.2 % Normal 11.0-15.0 [facility] Comment on above: Performed By: #### U CLINT, CMP, LIPID, DBIL, PHOS, MG #### [facility] [address] [address] [address] Brea Causey Hematocrit (Bld) [Volume fraction] 36.0 % Critically low 42.0-54.0 [facility] Comment on above: Performed By: #### U CLINT, CMP, LIPID, DBIL, PHOS, MG #### [facility] [address] [place] [address] Dr. Brea Causey Hemoglobin (Bld) [Mass/Vol] 12.2 g/dL Critically low 14.0-18.0 [facility] Comment on above: Performed By: #### U CLINT, CMP, LIPID, DBIL, PHOS, MG #### [facility] [address] [place] [address] Dr. Brea Causey IG # 0.07 10e3/ul Critically high 0.00-0.03 [facility] Comment on above: Performed By: #### U CLINT, CMP, LIPID, DBIL, PHOS, MG #### [facility] [address] [place] [address] Dr. Brea Causey IG % 1.2 % Critically high 0.0-0.5 [facility] Comment on above: Performed By: #### U CLINT, CMP, LIPID, DBIL, PHOS, MG #### [facility] [address] [place] [address] Dr. Brea Causey LYMPH # 0.9 103/ul Critically low 1.2-3.8 [facility] Comment on above: Performed By: #### U CLINT, CMP, LIPID, DBIL, PHOS, MG #### [facility] [address] [place] [address] Dr. Brea Causey Lymphocytes/100 WBC (Bld) 15.0 % Critically low 20.5-60.0 [facility] Comment on above: Performed By: #### U CLINT, CMP, LIPID, DBIL, PHOS, MG #### [facility] [address] [place] [address] Dr. Brea Causey MANUAL DIFF REQ NO Normal [facility] Comment on above: Performed By: #### U CLINT, CMP, LIPID, DBIL, PHOS, MG #### [facility] [address] [place] [address] Dr. Brea Causey MCH (RBC) [Entitic mass] 29.4 pg Normal 25.9-34.0 [facility] Comment on above: Performed By: #### U CLINT, CMP, LIPID, DBIL, PHOS, MG #### [facility] [address] [place] [address] Dr. Brea Causey MCHC (RBC) [Mass/Vol] 33.9 g/dL Normal 29.9-35.2 [facility] Comment on above: Performed By: #### U CLINT, CMP, LIPID, DBIL, PHOS, MG #### [facility] [address] [place] [address] Dr. Brea Causey MCV (RBC) [Entitic vol] 86.7 fL Normal 80.0-94.0 [facility] Comment on above: Performed By: #### U CLINT, CMP, LIPID, DBIL, PHOS, MG #### [facility] [address] [place] [address] Dr. Brea Causey MONO # 0.5 103/ul Normal 0.3-0.8 [facility] Comment on above: Performed By: #### U CLINT, CMP, LIPID, DBIL, PHOS, MG #### [facility] [address] [place] [address] Dr. Brea Causey Monocytes/100 WBC (Bld) 9.0 % Normal 1.7-12.0 [facility] Comment on above: Performed By: #### U CLINT, CMP, LIPID, DBIL, PHOS, MG #### [facility] [address] [address] [address] Brea Causey NEUT # 4.2 103/ul Normal 1.4-6.5 [facility] Comment on above: Performed By: #### U CLINT, CMP, LIPID, DBIL, PHOS, MG #### [facility] [address] [address] [address] Brea Causey Neutrophils/100 WBC (Bld) 70.5 % Normal 43.0-75.0 [facility] Comment on above: Performed By: #### U CLINT, CMP, LIPID, DBIL, PHOS, MG #### [facility] [address] [address] [address] Brea Causey Platelet mean volume (Bld) [Entitic vol] 8.7 fL Critically low 9.5-13.5 [facility] Comment on above: Performed By: #### U CLINT, CMP, LIPID, DBIL, PHOS, MG #### [facility] [address] [address] [address] Brea Causey PLT 247 103/ul Normal 150-450 [facility] Comment on above: Performed By: #### U CLINT, CMP, LIPID, DBIL, PHOS, MG #### [facility] [address] [place] [address] Dr. Brea Causey RBC 4.15 106/ul Critically low 4.70-6.10 [facility] Comment on above: Performed By: #### U CLINT, CMP, LIPID, DBIL, PHOS, MG #### [facility] [address] [address] [address] Brea Causey WBC 5.9 103/ul Normal 4.0-11.0 [facility] Comment on above: Performed By: #### U CLINT, CMP, LIPID, DBIL, PHOS, MG #### [facility] [address] [address] [address] Brea Causey GLYCOHEMOGLOBIN A1Con 2022 ADA RECOMMENDATION SEE BELOW Normal [facility] Comment on above: Result Comment: ADA RECOMMENDED LIMIT 4.0 - 6.0 ADA THERAPEUTIC TARGET < 7.0 ACTION SUGGESTED > 7.0 Performed By: #### U CLINT, CMP, LIPID, DBIL, PHOS, MG #### [facility] [address] [address] [address] Brea Causey Glucose [Mass/Vol] 177 mg/dL Normal [facility] Comment on above: Performed By: #### U CLINT, CMP, LIPID, DBIL, PHOS, MG #### [facility] [address] [address] [address] Brea Causey HbA1c (Bld) [Mass fraction] 7.8 % Critically high 4.5-6.2 [facility] Comment on above: Performed By: #### U CLINT, CMP, LIPID, DBIL, PHOS, MG #### [facility] [address] [place] [address] Dr. Brea Causey LIPID PROFILEon 08-30-2022 CHOL-HDL RATIO NORM SEE BELOW Normal [facility] Comment on above: Result Comment: 3.3 - 4.4 LOW RISK 4.4 - 7.1 AVERAGE RISK 7.1 - 11.0 MODERATE RISK >11.0 HIGH RISK Performed By: #### U CLINT, CMP, LIPID, DBIL, PHOS, MG #### [facility] [address] [place] [address] Dr. Brea Causey Cholesterol [Mass/Vol] 96 mg/dL Normal <=200 [facility] Comment on above: Performed By: #### U CLINT, CMP, LIPID, DBIL, PHOS, MG #### [facility] [address] [place] [address] Dr. Brea Causey Cholesterol in HDL [Mass/Vol] 48 mg/dL Normal 40-60 [facility] Comment on above: Performed By: #### U CLINT, CMP, LIPID, DBIL, PHOS, MG #### [facility] [address] [place] [address] Dr. Brea Causey Cholesterol in LDL [Mass/Vol] 40.2 mg/dL Normal [facility] Comment on above: Performed By: #### U CLINT, CMP, LIPID, DBIL, PHOS, MG #### [facility] [address] [address] [address] Brea Causey Cholesterol.total/Cho lesterol in HDL [Mass ratio] 2.0 {ratio} Normal [facility] Comment on above: Performed By: #### U CLINT, CMP, LIPID, DBIL, PHOS, MG #### [facility] [address] [address] [address] Brea Causey HDL NORMAL > or = 60 mg/dl - LO W CARDIOVASCULAR RISK <40 mg/dl - HIGH CARDIOVASCULAR RISK Normal [facility] Comment on above: Performed By: #### U CLINT, CMP, LIPID, DBIL, PHOS, MG #### [facility] [address] [address] [address] Brea Causey LDL CALC NORMAL SEE BELOW Normal [facility] Comment on above: Result Comment: <100 mg/dl OPTIMAL 100 - 129 mg/dl NEAR OR ABOVE OPTIMAL 130 - 159 mg/dl BORDERLINE HIGH 160 - 189 mg/dl HIGH >190 mg/dl VERY HIGH Performed By: #### U CLINT, CMP, LIPID, DBIL, PHOS, MG #### [facility] [address] [address] [address] Brea Causey Triglyceride [Mass/Vol] 39 mg/dL Normal <=150 [facility] Comment on above: Performed By: #### U CLINT, CMP, LIPID, DBIL, PHOS, MG #### [facility] [address] [address] [address] Brea Causey VLDL CALC 7.8 mg/dL Normal [facility] Comment on above: Performed By: #### U CLINT, CMP, LIPID, DBIL, PHOS, MG #### [facility] [address] [address] [address] Brea Causey MAGNESIUMon 08-30-2022 Magnesium [Mass/Vol] 1.5 mg/dL Critically low 1.8-2.4 [facility] Comment on above: Performed By: #### U CLINT, CMP, LIPID, DBIL, PHOS, MG #### [facility] [address] [address] [address] Brea Causey PHOSPHORUSon 08-30-2022 Phosphate [Mass/Vol] 4.0 mg/dL Normal 2.6-4.7 [facility] Comment on above: Performed By: #### U CLINT, CMP, LIPID, DBIL, PHOS, MG #### [facility] [address] [place] [address] Dr. Brea Causey PROF 14(COMP METB)on 023 Albumin [Mass/Vol] 3.8 g/dL Normal 3.4-5.0 [facility] Comment on above: Performed By: #### U CLINT, CMP, LIPID, DBIL, PHOS, MG #### [facility] [address] [place] [address] Dr. Brea Causey Albumin/Globulin [Mass ratio] 1.1 {ratio} Normal [facility] Comment on above: Performed By: #### U CLINT, CMP, LIPID, DBIL, PHOS, MG #### [facility] [address] [place] [address] Dr. Brea Causey ALP [Catalytic activity/Vol] 177 U/L Critically high 46-116 [facility] Comment on above: Performed By: #### U CLINT, CMP, LIPID, DBIL, PHOS, MG #### [facility] [address] [place] [address] Dr. Brea Causey ALT [Catalytic activity/Vol] 27 U/L Normal 16-63 [facility] Comment on above: Performed By: #### U CLINT, CMP, LIPID, DBIL, PHOS, MG #### [facility] [address] [place] [address] Dr. Brea Causey Anion gap [Moles/Vol] 12.1 mmol/L Normal [facility] [facility] Comment on above: Performed By: #### U CLINT, CMP, LIPID, DBIL, PHOS, MG #### [facility] [address] [place] [address] Dr. Brea Causey AST [Catalytic activity/Vol] 19 U/L Normal 15-37 [facility] Comment on above: Performed By: #### U CLINT, CMP, LIPID, DBIL, PHOS, MG #### [facility] [address] [address] [address] Brea Causey Bilirubin [Mass/Vol] 0.3 mg/dL Normal 0.2-1.0 [facility] Comment on above: Performed By: #### U CLINT, CMP, LIPID, DBIL, PHOS, MG #### [facility] [address] [address] [address] Brea Causey Calcium [Mass/Vol] 8.0 mg/dL Critically low 8.5-10.1 Th [facility] Comment on above: Performed By: #### U CLINT, CMP, LIPID, DBIL, PHOS, MG #### [facility] [address] [place] [address] Dr. Brea Causey Chloride [Moles/Vol] 96 mmol/L Critically low 98-107 [facility] Comment on above: Performed By: #### U CLINT, CMP, LIPID, DBIL, PHOS, MG #### [facility] [address] [address] [address] Brea Causey CO2 [Moles/Vol] 28.0 mmol/L Normal 21.0-32.0 [facility] Comment on above: Performed By: #### U CLINT, CMP, LIPID, DBIL, PHOS, MG #### [facility] [address] [place] [address] Dr. Brea Causey Creatinine [Mass/Vol] 1.07 mg/dL Normal 0.70-1.30 [facility] Comment on above: Performed By: #### U CLINT, CMP, LIPID, DBIL, PHOS, MG #### [facility] [address] [place] [address] Dr. Brea Causey EGFR-AF CITIZ[place] >60 Normal >=60 [facility] Comment on above: Performed By: #### U CLINT, CMP, LIPID, DBIL, PHOS, MG #### [facility] [address] [place] [address] Dr. Brea Causey EGFR-NON AF CITIZEN OF [place] >60 Normal >=60 [facility] Comment on above: Performed By: #### U CLINT, CMP, LIPID, DBIL, PHOS, MG #### [facility] [address] [address] [address] Brea Causey Globulin (S) [Mass/Vol] 3.5 g/dL Normal [facility] Comment on above: Performed By: #### U CLINT, CMP, LIPID, DBIL, PHOS, MG #### [facility] [address] [address] [address] Brea Causey Glucose [Mass/Vol] 179 mg/dL Critically high 74-106 [facility] Comment on above: Performed By: #### U CLINT, CMP, LIPID, DBIL, PHOS, MG #### [facility] [address] [place] [address] Dr. Brea Causey Potassium [Moles/Vol] 5.1 mmol/L Normal 3.5-5.1 [facility] Comment on above: Performed By: #### U CLINT, CMP, LIPID, DBIL, PHOS, MG #### [facility] [address] [place] [address] Dr. Brea Causey Protein [Mass/Vol] 7.3 g/dL Normal 6.4-8.2 [facility] Comment on above: Performed By: #### U CLINT, CMP, LIPID, DBIL, PHOS, MG #### [facility] [address] [place] [address] Dr. Brea Causey Sodium [Moles/Vol] 131 mmol/L Critically low 136-145 Th [facility] Comment on above: Performed By: #### U CLINT, CMP, LIPID, DBIL, PHOS, MG #### [facility] [address] [place] [address] Dr. Brea Causey Urea nitrogen [Mass/Vol] 10.0 mg/dL Normal 7.0-18.0 [facility] Comment on above: Performed By: #### U CLINT, CMP, LIPID, DBIL, PHOS, MG #### [facility] [address] [place] [address] Dr. Brea Causey Urea nitrogen/Creatinine [Mass ratio] 9.3 mg/mg Normal [facility] Comment on above: Performed By: #### U CLINT, CMP, LIPID, DBIL, PHOS, MG #### [facility] [address] [place] [address] Dr. Brea Causey URIC ACID SERUMon 08-30-2022 Urate [Mass/Vol] 6.0 mg/dL Normal 3.5-7.2 [facility] Comment on above: Performed By: #### U CLINT, CMP, LIPID, DBIL, PHOS, MG #### [facility] [address] [place] [address] Dr. Brea Causey FK506 (TACROLIMUS) WHOLE BLO ODon 08-03-2022 Tacrolimus (FK506), Blood 3.2 ng/mL Normal 2.0-20.0 [facility] Comment on above: Result Comment: Trou gh (immediately following transplant) 15.0 . Trough (steady state, 2 weeks or more after transplant): 3.0 - 8.0 . Performed by LC-MS/MS technology. Performed By: #### C BC #### [facility] [address] [place] [address] Dr. Brea Causey BILIRUBIN CONJUGATED (DIRECT )on 08-01-2022 BILI, CONJUGATED 0.1 mg/dL Normal 0.0-0.2 [facility] Comment on above: Performed By: #### U CLINT, CMP, LIPID, DBIL, PHOS, MG #### [facility] [address] [place] [address] Dr. Brea Causey CBC AUTO DIFFon 08-01-2022 BASO # 0.0 103/ul Normal 0.0-0.1 [facility] Comment on above: Performed By: #### C BC #### [facility] [address] [place] [address] Dr. Bera Causey Basophils/100 WBC (Bld) 0.7 % Normal 0.2-2.0 [facility] Comment on above: Performed By: #### C BC #### [facility] [address] [place] [address] Dr. Brea Causey EO # 0.1 103/ul Normal 0.0-0.7 [facility] Comment on above: Performed By: #### C BC #### [facility] [address] [address] [address] Brea Causey Eosinophils/100 WBC (Bld) 2.4 % Normal 0.9-7.0 [facility] Comment on above: Performed By: #### C BC #### [facility] [address] [address] [address] Brea Causey Erythrocyte distribution width (RBC) [Ratio] 13.3 % Normal 11.0-15.0 [facility] Comment on above: Performed By: #### C BC #### [facility] [address] [address] [address] Brea Causey Hematocrit (Bld) [Volume fraction] 36.5 % Critically low 42.0-54.0 [facility] Comment on above: Performed By: #### C BC #### [facility] [address] [place] [address] Dr. Brea Causey Hemoglobin (Bld) [Mass/Vol] 12.1 g/dL Critically low 14.0-18.0 [facility] Comment on above: Performed By: #### C BC #### [facility] [address] [place] [address] Dr. Brea Causey IG # 0.07 10e3/ul Critically high 0.00-0.03 [facility] Comment on above: Performed By: #### C BC #### [facility] [address] [place] [address] Dr. Brea Causey IG % 1.2 % Critically high 0.0-0.5 [facility] Comment on above: Performed By: #### C BC #### [facility] [address] [address] [address] Brea Causey LYMPH # 0.9 103/ul Critically low 1.2-3.8 [facility] Comment on above: Performed By: #### C BC #### [facility] [address] [place] [address] Dr. Brea Causey Lymphocytes/100 WBC (Bld) 14.5 % Critically low 20.5-60.0 [facility] Comment on above: Performed By: #### C BC #### [facility] [address] [place] [address] Dr. Brea Causey MANUAL DIFF REQ NO Normal [facility] Comment on above: Performed By: #### C BC #### [facility] [address] [place] [address] Dr. Brea Causey MCH (RBC) [Entitic mass] 28.8 pg Normal 25.9-34.0 [facility] Comment on above: Performed By: #### C BC #### [facility] [address] [place] [address] Dr. Brea Causey MCHC (RBC) [Mass/Vol] 33.2 g/dL Normal 29.9-35.2 [facility] Comment on above: Performed By: #### C BC #### [facility] [address] [place] [address] Dr. Brea Causey MCV (RBC) [Entitic vol] 86.9 fL Normal 80.0-94.0 [facility] Comment on above: Performed By: #### C BC #### [facility] [address] [place] [address] Dr. Brea Causey MONO # 0.6 103/ul Normal 0.3-0.8 [facility] Comment on above: Performed By: #### C BC #### [facility] [address] [place] [address] Dr. Brea Causey Monocytes/100 WBC (Bld) 10.3 % Normal 1.7-12.0 [facility] Comment on above: Performed By: #### C BC #### [facility] [address] [place] [address] Dr. Brea Causey NEUT # 4.2 103/ul Normal 1.4-6.5 [facility] Comment on above: Performed By: #### C BC #### [facility] [address] [place] [address] Dr. Brea Causey Neutrophils/100 WBC (Bld) 70.9 % Normal 43.0-75.0 [facility] Comment on above: Performed By: #### C BC #### [facility] [address] [address] [address] Brea Causey Platelet mean volume (Bld) [Entitic vol] 9.1 fL Critically low 9.5-13.5 [facility] Comment on above: Performed By: #### C BC #### [facility] [address] [address] [address] Brea Causey PLT 248 103/ul Normal 150-450 [facility] Comment on above: Performed By: #### C BC #### [facility] [address] [address] [address] Brea Causey RBC 4.20 106/ul Critically low 4.70-6.10 [facility] Comment on above: Performed By: #### C BC #### [facility] [address] [place] [address] Dr. Brea Causey WBC 5.9 103/ul Normal 4.0-11.0 [facility] Comment on above: Performed By: #### C BC #### [facility] [address] [place] [address] Dr. Brea Causey LIPID PROFILEon 08-01-2022 CHOL-HDL RATIO NORM SEE BELOW Normal [facility] Comment on above: Result Comment: 3.3 - 4.4 LOW RISK 4.4 - 7.1 AVERAGE RISK 7.1 - 11.0 MODERATE RISK >11.0 HIGH RISK Performed By: #### U CLINT, CMP, LIPID, DBIL, PHOS, MG #### [facility] [address] [place] [address] Dr. Brea Causey Cholesterol [Mass/Vol] 95 mg/dL Normal <=200 [facility] Comment on above: Performed By: #### U CLINT, CMP, LIPID, DBIL, PHOS, MG #### [facility] [address] [place] [address] Dr. Brea Causey Cholesterol in HDL [Mass/Vol] 49 mg/dL Normal 40-60 [facility] Comment on above: Performed By: #### U CLINT, CMP, LIPID, DBIL, PHOS, MG #### [facility] [address] [address] [address] Brea Causey Cholesterol in LDL [Mass/Vol] 35.4 mg/dL Normal [facility] Comment on above: Performed By: #### U CLINT, CMP, LIPID, DBIL, PHOS, MG #### [facility] [address] [address] [address] Brea Causey Cholesterol.total/Cho lesterol in HDL [Mass ratio] 1.9 {ratio} Normal [facility] Comment on above: Performed By: #### U CLINT, CMP, LIPID, DBIL, PHOS, MG #### [facility] [address] [address] [address] Brea Causey HDL NORMAL > or = 60 mg/dl - LO W CARDIOVASCULAR RISK <40 mg/dl - HIGH CARDIOVASCULAR RISK Normal [facility] Comment on above: Performed By: #### U CLINT, CMP, LIPID, DBIL, PHOS, MG #### [facility] [address] [address] [address] Brea Causey LDL CALC NORMAL SEE BELOW Normal [facility] Comment on above: Result Comment: <100 mg/dl OPTIMAL 100 - 129 mg/dl NEAR OR ABOVE OPTIMAL 130 - 159 mg/dl BORDERLINE HIGH 160 - 189 mg/dl HIGH >190 mg/dl VERY HIGH Performed By: #### U CLINT, CMP, LIPID, DBIL, PHOS, MG #### [facility] [address] [address] [address] Brea Causey Triglyceride [Mass/Vol] 53 mg/dL Normal <=150 [facility] Comment on above: Performed By: #### U CLINT, CMP, LIPID, DBIL, PHOS, MG #### [facility] [address] [address] [address] Brea Causey VLDL CALC 10.6 mg/dL Normal [facility] Comment on above: Performed By: #### U CLINT, CMP, LIPID, DBIL, PHOS, MG #### [facility] [address] [address] [address] Brea Causey MAGNESIUMon 08-01-2022 Magnesium [Mass/Vol] 1.5 mg/dL Critically low 1.8-2.4 [facility] Comment on above: Performed By: #### U CLINT, CMP, LIPID, DBIL, PHOS, MG #### [facility] [address] [place] [address] Dr. Brea Causey PHOSPHORUSon 08-01-2022 Phosphate [Mass/Vol] 3.8 mg/dL Normal 2.6-4.7 [facility] Comment on above: Performed By: #### U CLINT, CMP, LIPID, DBIL, PHOS, MG #### [facility] [address] [place] [address] Dr. Brea Causey PROF 14(COMP METB)on 023 Albumin [Mass/Vol] 4.1 g/dL Normal 3.4-5.0 [facility] Comment on above: Performed By: #### U CLINT, CMP, LIPID, DBIL, PHOS, MG #### [facility] [address] [place] [address] Dr. Brea Causey Albumin/Globulin [Mass ratio] 1.3 {ratio} Normal [facility] Comment on above: Performed By: #### U CLINT, CMP, LIPID, DBIL, PHOS, MG #### [facility] [address] [place] [address] Dr. Brea Causey ALP [Catalytic activity/Vol] 197 U/L Critically high 46-116 [facility] Comment on above: Performed By: #### U CLINT, CMP, LIPID, DBIL, PHOS, MG #### [facility] [address] [place] [address] Dr. Brea Causey ALT [Catalytic activity/Vol] 26 U/L Normal 16-63 [facility] Comment on above: Performed By: #### U CLINT, CMP, LIPID, DBIL, PHOS, MG #### [facility] [address] [place] [address] Dr. Brea Causey Anion gap [Moles/Vol] 12.6 mmol/L Normal [facility] Comment on above: Performed By: #### U CLINT, CMP, LIPID, DBIL, PHOS, MG #### [facility] [address] [address] [address] Brea Causey AST [Catalytic activity/Vol] 20 U/L Normal 15-37 [facility] Comment on above: Performed By: #### U CLINT, CMP, LIPID, DBIL, PHOS, MG #### [facility] [address] [place] [address] Dr. Brea Causey Bilirubin [Mass/Vol] 0.4 mg/dL Normal 0.2-1.0 [facility] Comment on above: Performed By: #### U CLINT, CMP, LIPID, DBIL, PHOS, MG #### [facility] [address] [place] [address] Dr. Brea Causey Calcium [Mass/Vol] 7.9 mg/dL Critically low 8.5-10.1 Th e [facility] Comment on above: Performed By: #### U CLINT, CMP, LIPID, DBIL, PHOS, MG #### [facility] [address] [place] [address] Dr. Brea Causey Chloride [Moles/Vol] 97 mmol/L Critically low 98-107 [facility] Comment on above: Performed By: #### U CLINT, CMP, LIPID, DBIL, PHOS, MG #### [facility] [address] [place] [address] Dr. Brea Causey CO2 [Moles/Vol] 28.9 mmol/L Normal 21.0-32.0 [facility] Comment on above: Performed By: #### U CLINT, CMP, LIPID, DBIL, PHOS, MG #### [facility] [address] [place] [address] Dr. Brea Causey Creatinine [Mass/Vol] 0.98 mg/dL Normal 0.70-1.30 [facility] Comment on above: Performed By: #### U CLINT, CMP, LIPID, DBIL, PHOS, MG #### [facility] [address] [place] [address] Dr. Brea Causey EGFR-AF [place]IZ[place] >60 Normal >=60 [facility] Comment on above: Performed By: #### U CLINT, CMP, LIPID, DBIL, PHOS, MG #### [facility] [address] [place] [address] Dr. Brea Causey EGFR-NON AF CITIZ[place] >60 Normal >=60 [facility] Comment on above: Performed By: #### U CLINT, CMP, LIPID, DBIL, PHOS, MG #### [facility] [address] [address] [address] Brea Causey Globulin (S) [Mass/Vol] 3.2 g/dL Normal [facility] Comment on above: Performed By: #### U CLINT, CMP, LIPID, DBIL, PHOS, MG #### [facility] [address] [place] [address] Dr. Brea Causey Glucose [Mass/Vol] 174 mg/dL Critically high 74-106 T [facility] Comment on above: Performed By: #### U LCINT, CMP, LIPID, DBIL, PHOS, MG #### [facility] [address] [place] [address] Dr. Brea Causey Potassium [Moles/Vol] 4.5 mmol/L Normal 3.5-5.1 [facility] Comment on above: Performed By: #### U CLINT, CMP, LIPID, DBIL, PHOS, MG #### [facility] [address] [place] [address] Dr. Brea Causey Protein [Mass/Vol] 7.3 g/dL Normal 6.4-8.2 [facility] Comment on above: Performed By: #### U CLINT, CMP, LIPID, DBIL, PHOS, MG #### [facility] [address] [place] [address] Dr. Brea Causey Sodium [Moles/Vol] 134 mmol/L Critically low 136-145 Th [facility] Comment on above: Performed By: #### U CLINT, CMP, LIPID, DBIL, PHOS, MG #### [facility] [address] [place] [address] Dr. Brea Causey Urea nitrogen [Mass/Vol] 8.0 mg/dL Normal 7.0-18.0 [facility] Comment on above: Performed By: #### U CLINT, CMP, LIPID, DBIL, PHOS, MG #### [facility] [address] [place] [address] Dr. Brea Causey Urea nitrogen/Creatinine [Mass ratio] 8.2 mg/mg Normal [facility] Comment on above: Performed By: #### U CLINT, CMP, LIPID, DBIL, PHOS, MG #### [facility] [address] [place] [address] Dr. Brea Causey URIC ACID SERUMon 08-01-2022 Urate [Mass/Vol] 5.8 mg/dL Normal 3.5-7.2 [facility] Comment on above: Performed By: #### U CLINT, CMP, LIPID, DBIL, PHOS, MG #### [facility] [address] [place] [address] Dr. Brea Causey FK506 (TACROLIMUS) WHOLE BLO ODon 07-07-2022 Tacrolimus (FK506), Blood 3.6 ng/mL Normal 2.0-20.0 [facility] Comment on above: Result Comment: Trou gh (immediately following transplant) 15.0 . Trough (steady state, 2 weeks or more after transplant): 3.0 - 8.0 . Performed by LC-MS/MS technology. Performed By: #### C BC #### [facility] [address] [place] [address] Dr. Brea Causey BILIRUBIN CONJUGATED (DIRECT )on 07-04-2022 BILI, CONJUGATED 0.1 mg/dL Normal 0.0-0.2 [facility] Comment on above: Performed By: #### B KVIRUS #### [facility] [address] [place] [address] Dr. Brea Causey CBC AUTO DIFFon 07-04-2022 BASO # 0.0 103/ul Normal 0.0-0.1 [facility] Comment on above: Performed By: #### U CLINT, CMP, LIPID, DBIL, PHOS, MG #### [facility] [address] [place] [address] Dr. Brea Causey Basophils/100 WBC (Bld) 0.5 % Normal 0.2-2.0 [facility] Comment on above: Performed By: #### U CLINT, CMP, LIPID, DBIL, PHOS, MG #### [facility] [address] [address] [address] Brea Causey EO # 0.2 103/ul Normal 0.0-0.7 [facility] Comment on above: Performed By: #### U CLINT, CMP, LIPID, DBIL, PHOS, MG #### [facility] [address] [address] [address] Brea Causey Eosinophils/100 WBC (Bld) 2.6 % Normal 0.9-7.0 [facility] Comment on above: Performed By: #### U CLINT, CMP, LIPID, DBIL, PHOS, MG #### [facility] [address] [place] [address] Dr. Brea Causey Erythrocyte distribution width (RBC) [Ratio] 13.3 % Normal 11.0-15.0 [facility] Comment on above: Performed By: #### U CLINT, CMP, LIPID, DBIL, PHOS, MG #### [facility] [address] [place] [address] Dr. Brea Causey Hematocrit (Bld) [Volume fraction] 37.2 % Critically low 42.0-54.0 [facility] Comment on above: Performed By: #### U CLINT, CMP, LIPID, DBIL, PHOS, MG #### [facility] [address] [place] [address] Dr. Brea Causey Hemoglobin (Bld) [Mass/Vol] 12.4 g/dL Critically low 14.0-18.0 [facility] Comment on above: Performed By: #### U CLINT, CMP, LIPID, DBIL, PHOS, MG #### [facility] [address] [place] [address] Dr. Brea Causey IG # 0.09 10e3/ul Critically high 0.00-0.03 [facility] Comment on above: Performed By: #### U CLINT, CMP, LIPID, DBIL, PHOS, MG #### [facility] [address] [place] [address] Dr. Brea Causey IG % 1.4 % Critically high 0.0-0.5 [facility] Comment on above: Performed By: #### U CLINT, CMP, LIPID, DBIL, PHOS, MG #### [facility] [address] [place] [address] Dr. Brea Causey LYMPH # 1.0 103/ul Critically low 1.2-3.8 [facility] Comment on above: Performed By: #### U CLINT, CMP, LIPID, DBIL, PHOS, MG #### [facility] [address] [place] [address] Dr. Brea Causey Lymphocytes/100 WBC (Bld) 15.2 % Critically low 20.5-60.0 [facility] Comment on above: Performed By: #### U CLINT, CMP, LIPID, DBIL, PHOS, MG #### [facility] [address] [place] [address] Dr. Brea Causey MANUAL DIFF REQ NO Normal [facility] Comment on above: Performed By: #### U CLINT, CMP, LIPID, DBIL, PHOS, MG #### [facility] [address] [place] [address] Dr. Brea Causey MCH (RBC) [Entitic mass] 28.8 pg Normal 25.9-34.0 [facility] Comment on above: Performed By: #### U CLINT, CMP, LIPID, DBIL, PHOS, MG #### [facility] [address] [place] [address] Dr. Brea Causey MCHC (RBC) [Mass/Vol] 33.3 g/dL Normal 29.9-35.2 [facility] Comment on above: Performed By: #### U CLINT, CMP, LIPID, DBIL, PHOS, MG #### [facility] [address] [place] [address] Dr. Brea Causey MCV (RBC) [Entitic vol] 86.5 fL Normal 80.0-94.0 [facility] Comment on above: Performed By: #### U CLINT, CMP, LIPID, DBIL, PHOS, MG #### [facility] [address] [place] [address] Dr. Brea Causey MONO # 0.7 103/ul Normal 0.3-0.8 [facility] Comment on above: Performed By: #### U CLINT, CMP, LIPID, DBIL, PHOS, MG #### [facility] [address] [place] [address] Dr. Brea Causey Monocytes/100 WBC (Bld) 10.0 % Normal 1.7-12.0 [facility] Comment on above: Performed By: #### U CLINT, CMP, LIPID, DBIL, PHOS, MG #### [facility] [address] [address] [address] Brea Causey NEUT # 4.6 103/ul Normal 1.4-6.5 [facility] Comment on above: Performed By: #### U CLINT, CMP, LIPID, DBIL, PHOS, MG #### [facility] [address] [place] [address] Dr. Brea Causey Neutrophils/100 WBC (Bld) 70.3 % Normal 43.0-75.0 [facility] Comment on above: Performed By: #### U CLINT, CMP, LIPID, DBIL, PHOS, MG #### [facility] [address] [place] [address] Dr. Brea Causey Platelet mean volume (Bld) [Entitic vol] 8.8 fL Critically low 9.5-13.5 [facility] Comment on above: Performed By: #### U CLINT, CMP, LIPID, DBIL, PHOS, MG #### [facility] [address] [place] [address] Dr. Brea Causey PLT 240 103/ul Normal 150-450 [facility] Comment on above: Performed By: #### U CLINT, CMP, LIPID, DBIL, PHOS, MG #### [facility] [address] [place] [address] Dr. Brea Causey RBC 4.30 106/ul Critically low 4.70-6.10 [facility] Comment on above: Performed By: #### U CILNT, CMP, LIPID, DBIL, PHOS, MG #### [facility] [facility] [address] [place] [address] Dr. Brea Causey WBC 6.5 103/ul Normal 4.0-11.0 [facility] Comment on above: Performed By: #### U CLINT, CMP, LIPID, DBIL, PHOS, MG #### [facility] [address] [address] [address] Brea Causey LIPID PROFILEon 07-04-2022 CHOL-HDL RATIO NORM SEE BELOW Normal [facility] Comment on above: Result Comment: 3.3 - 4.4 LOW RISK 4.4 - 7.1 AVERAGE RISK 7.1 - 11.0 MODERATE RISK >11.0 HIGH RISK Performed By: #### U CLINT, CMP, LIPID, DBIL, PHOS, MG #### [facility] [address] [address] [address] Brea Causey Cholesterol [Mass/Vol] 86 mg/dL Normal <=200 [facility] Comment on above: Performed By: #### U CLINT, CMP, LIPID, DBIL, PHOS, MG #### [facility] [address] [address] [address] Brea Causey Cholesterol in HDL [Mass/Vol] 44 mg/dL Normal 40-60 [facility] Comment on above: Performed By: #### U CLINT, CMP, LIPID, DBIL, PHOS, MG #### [facility] [address] [address] [address] Brea Causey Cholesterol in LDL [Mass/Vol] 28.0 mg/dL Normal [facility] Comment on above: Performed By: #### U CLINT, CMP, LIPID, DBIL, PHOS, MG #### [facility] [address] [address] [address] Brea Causey Cholesterol.total/Cho lesterol in HDL [Mass ratio] 2.0 {ratio} Normal [facility] Comment on above: Performed By: #### U CLINT, CMP, LIPID, DBIL, PHOS, MG #### [facility] [address] [address] [address] Brea Causey HDL NORMAL > or = 60 mg/dl - LO W CARDIOVASCULAR RISK <40 mg/dl - HIGH CARDIOVASCULAR RISK Normal [facility] Comment on above: Performed By: #### U CLINT, CMP, LIPID, DBIL, PHOS, MG #### [facility] [address] [address] [address] Brea Causey LDL CALC NORMAL SEE BELOW Normal [facility] Comment on above: Result Comment: <100 mg/dl OPTIMAL 100 - 129 mg/dl NEAR OR ABOVE OPTIMAL 130 - 159 mg/dl BORDERLINE HIGH 160 - 189 mg/dl HIGH >190 mg/dl VERY HIGH Performed By: #### U CLINT, CMP, LIPID, DBIL, PHOS, MG #### [facility] [address] [address] [address] Brea Causey Triglyceride [Mass/Vol] 70 mg/dL Normal <=150 [facility] Comment on above: Performed By: #### U CLINT, CMP, LIPID, DBIL, PHOS, MG #### [facility] [address] [place] [address] Dr. Brea Causey VLDL CALC 14.0 mg/dL Normal [facility] Comment on above: Performed By: #### U CLINT, CMP, LIPID, DBIL, PHOS, MG #### [facility] [address] [address] [address] Brea Causey MAGNESIUMon 07-04-2022 Magnesium [Mass/Vol] 1.4 mg/dL Critically low 1.8-2.4 [facility] Comment on above: Performed By: #### U CLINT, CMP, LIPID, DBIL, PHOS, MG #### [facility] [address] [place] [address] Dr. Brea Causey PHOSPHORUSon 07-04-2022 Phosphate [Mass/Vol] 4.1 mg/dL Normal 2.6-4.7 [facility] Comment on above: Performed By: #### U CLINT, CMP, LIPID, DBIL, PHOS, MG #### [facility] [address] [place] [address] Dr. Brea Causey PROF 14(COMP METB)on 023 Albumin [Mass/Vol] 4.0 g/dL Normal 3.4-5.0 [facility] Comment on above: Performed By: #### B KVIRUS #### [facility] [address] [place] [address] Dr. Brea Causey Albumin/Globulin [Mass ratio] 1.3 {ratio} Normal [facility] Comment on above: Performed By: #### B KVIRUS #### [facility] [address] [place] [address] Dr. Brea Causey ALP [Catalytic activity/Vol] 212 U/L Critically high 46-116 [facility] Comment on above: Performed By: #### B KVIRUS #### [facility] [address] [place] [address] Dr. Brea Causey ALT [Catalytic activity/Vol] 31 U/L Normal 16-63 [facility] Comment on above: Performed By: #### B KVIRUS #### [facility] [address] [place] [address] Dr. Brea Causey Anion gap [Moles/Vol] 11.9 mmol/L Normal [facility] Comment on above: Performed By: #### B KVIRUS #### [facility] [address] [place] [address] Dr. Brea Causey AST [Catalytic activity/Vol] 21 U/L Normal 15-37 [facility] Comment on above: Performed By: #### B KVIRUS #### [facility] [address] [place] [address] Dr. Brea Causey Bilirubin [Mass/Vol] 0.3 mg/dL Normal 0.2-1.0 [facility] Comment on above: Performed By: #### B KVIRUS #### [facility] [address] [place] [address] Dr. Brea Causey Calcium [Mass/Vol] 8.1 mg/dL Critically low 8.5-10.[address] [facility] Comment on above: Performed By: #### B KVIRUS #### [facility] [address] [place] [address] Dr. Brea Causey Chloride [Moles/Vol] 97 mmol/L Critically low 98-107 [facility] Comment on above: Performed By: #### B KVIRUS #### [facility] [address] [address] [address] Brea Causey CO2 [Moles/Vol] 26.8 mmol/L Normal 21.0-32.0 [facility] Comment on above: Performed By: #### B KVIRUS #### [facility] [address] [address] [address] Brea Causey Creatinine [Mass/Vol] 0.99 mg/dL Normal 0.70-1.30 [facility] Comment on above: Performed By: #### B KVIRUS #### [facility] [address] [address] [address] Brea Causey EGFR-AF CITIZEN [place] >60 Normal >=60 [facility] Comment on above: Performed By: #### B KVIRUS #### [facility] [address] [place] [address] Dr. Brea Causey EGFR-NON AF CITIZEN OF [place] >60 Normal >=60 [facility] Comment on above: Performed By: #### B KVIRUS #### [facility] [address] [place] [address] Dr. Brea Causey Globulin (S) [Mass/Vol] 3.2 g/dL Normal [facility] Comment on above: Performed By: #### B KVIRUS #### [facility] [address] [place] [address] Dr. Brea Causey Glucose [Mass/Vol] 169 mg/dL Critically high 74-106 [facility] Comment on above: Performed By: #### B KVIRUS #### [facility] [address] [address] [address] Brea Causey Potassium [Moles/Vol] 4.7 mmol/L Normal 3.5-5.1 [facility] Comment on above: Performed By: #### B KVIRUS #### [facility] [address] [place] [address] Dr. Brea Causey Protein [Mass/Vol] 7.2 g/dL Normal 6.4-8.2 [facility] Comment on above: Performed By: #### B KVIRUS #### [facility] [address] [place] [address] Dr. Brea Causey Sodium [Moles/Vol] 131 mmol/L Critically low 136-[address] [facility] Comment on above: Performed By: #### B KVIRUS #### [facility] [address] [address] [address] Brea Causey Urea nitrogen [Mass/Vol] 9.0 mg/dL Normal 7.0-18.0 [facility] Comment on above: Performed By: #### B KVIRUS #### [facility] [address] [address] [address] Brea Causey Urea nitrogen/Creatinine [Mass ratio] 9.1 mg/mg Normal [facility] Comment on above: Performed By: #### B KVIRUS #### [facility] [address] [place] [address] Dr. Brea Causey URIC ACID SERUMon 07-04-2022 Urate [Mass/Vol] 6.1 mg/dL Normal 3.5-7.2 [facility] Comment on above: Performed By: #### U CLINT, CMP, LIPID, DBIL, PHOS, MG #### [facility] [address] [place] [address] Dr. Brea Causey TESTOSTERONE, FREE,DIRECT, T OTALon 05-28-2022 Free Testosterone(Direct) 5.9 pg/mL Critically low 6.6-18.1 [facility] Comment on above: Result Comment: Perf ormed at: BN Performed By: #### U CLINT, CMP, LIPID, DBIL, PHOS, MG #### [facility] [address] [place] [address] Dr. Brea Causey Testosterone [Mass/Vol] 513 ng/dL Normal 264-916 [facility] Comment on above: Result Comment: Adul t male reference interval is based on a population of healthy nonobese males (BMI <30) between 19 and 39 years old. daniel Harris.al. JCEM 2017,102;7927-4152. PMID: [id number]. Performed at: CB Performed By: #### U CLINT, CMP, LIPID, DBIL, PHOS, MG #### [facility] [address] [place] [address] Dr. Brea Causey FK506 (TACROLIMUS) WHOLE BLO ODon 05-26-2022 Tacrolimus (FK506), Blood 3.9 ng/mL Normal 2.0-20.0 [facility] Comment on above: Result Comment: Trou gh (immediately following transplant) 15.0 . Trough (steady state, 2 weeks or more after transplant): 3.0 - 8.0 . Performed by LC-MS/MS technology. Performed By: #### B KVIRUS #### [facility] [address] [place] [address] Dr. Brea Causey BK VIRUS PCR QUANTon 023 BKV DNA QUANT PCR PLASMA Negative Normal Negative [facility] Comment on above: Result Comment: No B K DNA detected. . The linear range of the assay is 22 - 100,000,000 IU/mL. Performed By: #### U CLINT, CMP, LIPID, DBIL, PHOS, MG #### [facility] [address] [place] [address] Dr. Brea Causey Log10 BKV DNA Plasma Normal [facility] Comment on above: Performed By: #### U CLINT, CMP, LIPID, DBIL, PHOS, MG #### [facility] [address] [place] [address] Dr. Brea Causey BILIRUBIN CONJUGATED (DIRECT )on 05-23-2022 BILI, CONJUGATED 0.2 mg/dL Normal 0.0-0.2 [facility] Comment on above: Performed By: #### C BC #### [facility] [address] [place] [address] Dr. Brea Causey CBC AUTO DIFFon 05-23-2022 BASO # 0.0 103/ul Normal 0.0-0.1 [facility] Comment on above: Performed By: #### B KVIRUS #### [facility] [address] [place] [address] Dr. Brea Causey Basophils/100 WBC (Bld) 0.6 % Normal 0.2-2.0 [facility] Comment on above: Performed By: #### B KVIRUS #### [facility] [address] [place] [address] Dr. Brea Causey EO # 0.1 103/ul Normal 0.0-0.7 [facility] Comment on above: Performed By: #### B KVIRUS #### [facility] [address] [place] [address] Dr. Brea Causey Eosinophils/100 WBC (Bld) 1.7 % Normal 0.9-7.0 [facility] Comment on above: Performed By: #### B KVIRUS #### [facility] [address] [place] [address] Dr. Brea Causey Erythrocyte distribution width (RBC) [Ratio] 13.4 % Normal 11.0-15.0 [facility] Comment on above: Performed By: #### B KVIRUS #### [facility] [address] [place] [address] Dr. Brea Causey Hematocrit (Bld) [Volume fraction] 38.8 % Critically low 42.0-54.0 [facility] Comment on above: Performed By: #### B KVIRUS #### [facility] [address] [place] [address] Dr. Brea Causey Hemoglobin (Bld) [Mass/Vol] 12.4 g/dL Critically low 14.0-18.0 [facility] Comment on above: Performed By: #### B KVIRUS #### [facility] [address] [place] [address] Dr. Brea Causey IG # 0.07 10e3/ul Critically high 0.00-0.03 [facility] Comment on above: Performed By: #### B KVIRUS #### [facility] [address] [place] [address] Dr. Brea Causey IG % 1.1 % Critically high 0.0-0.5 [facility] Comment on above: Performed By: #### B KVIRUS #### [facility] [address] [place] [address] Dr. Brea Causey LYMPH # 0.9 103/ul Critically low 1.2-3.8 [facility] Comment on above: Performed By: #### B KVIRUS #### [facility] [address] [place] [address] Dr. Brea Causey Lymphocytes/100 WBC (Bld) 14.1 % Critically low 20.5-60.0 [facility] Comment on above: Performed By: #### B KVIRUS #### [facility] [address] [place] [address] Dr. Brea Causey MANUAL DIFF REQ NO Normal [facility] Comment on above: Performed By: #### B KVIRUS #### [facility] [address] [place] [address] Dr. Brea Causey MCH (RBC) [Entitic mass] 29.3 pg Normal 25.9-34.0 [facility] Comment on above: Performed By: #### B KVIRUS #### [facility] [address] [place] [address] Dr. Brea Causey MCHC (RBC) [Mass/Vol] 32.0 g/dL Normal 29.9-35.2 [facility] Comment on above: Performed By: #### B KVIRUS #### [facility] [address] [place] [address] Dr. Brea Causey MCV (RBC) [Entitic vol] 91.7 fL Normal 80.0-94.0 [facility] Comment on above: Performed By: #### B KVIRUS #### [facility] [address] [place] [address] Dr. Brea Causey MONO # 0.7 103/ul Normal 0.3-0.8 [facility] Comment on above: Performed By: #### B KVIRUS #### [facility] [address] [place] [address] Dr. Brea Causey Monocytes/100 WBC (Bld) 10.0 % Normal 1.7-12.0 [facility] Comment on above: Performed By: #### B KVIRUS #### [facility] [address] [place] [address] Dr. Brea Causey NEUT # 4.7 103/ul Normal 1.4-6.5 [facility] Comment on above: Performed By: #### B KVIRUS #### [facility] [address] [address] [address] Brea Causey Neutrophils/100 WBC (Bld) 72.5 % Normal 43.0-75.0 [facility] Comment on above: Performed By: #### B KVIRUS #### [facility] [address] [place] [address] Dr. Brea Causey Platelet mean volume (Bld) [Entitic vol] 9.4 fL Critically low 9.5-13.5 [facility] Comment on above: Performed By: #### B KVIRUS #### [facility] [address] [address] [address] Brea Causey PLT 256 103/ul Normal 150-450 [facility] Comment on above: Performed By: #### B KVIRUS #### [facility] [address] [place] [address] Dr. Brea Causey RBC 4.23 106/ul Critically low 4.70-6.10 [facility] Comment on above: Performed By: #### B KVIRUS #### [facility] [address] [place] [address] Dr. Brea Causey WBC 6.5 103/ul Normal 4.0-11.0 [facility] Comment on above: Performed By: #### B KVIRUS #### [facility] [address] [place] [address] Dr. Brea Causey GLYCOHEMOGLOBIN A1Con 2022 ADA RECOMMENDATION SEE BELOW Normal [facility] Comment on above: Result Comment: ADA RECOMMENDED LIMIT 4.0 - 6.0 ADA THERAPEUTIC TARGET < 7.0 ACTION SUGGESTED > 7.0 Performed By: #### U CLINT, CMP, LIPID, DBIL, PHOS, MG #### [facility] [address] [address] [address] Brea Causey Glucose [Mass/Vol] 160 mg/dL Normal [facility] Comment on above: Performed By: #### U CLINT, CMP, LIPID, DBIL, PHOS, MG #### [facility] [address] [address] [address] Brea Causey HbA1c (Bld) [Mass fraction] 7.2 % Critically high 4.5-6.2 [facility] Comment on above: Performed By: #### U CLINT, CMP, LIPID, DBIL, PHOS, MG #### [facility] [address], [place] [address] Dr. Brea Causey LIPID PROFILEon 05-23-2022 CHOL-HDL RATIO NORM SEE BELOW Normal [facility] Comment on above: Result Comment: 3.3 - 4.4 LOW RISK 4.4 - 7.1 AVERAGE RISK 7.1 - 11.0 MODERATE RISK >11.0 HIGH RISK Performed By: #### C BC #### [facility] [address] [address] [address] Brea Causey Cholesterol [Mass/Vol] 87 mg/dL Normal <=200 [facility] Comment on above: Performed By: #### C BC #### [facility] [address] [address] [address] Brea Causey Cholesterol in HDL [Mass/Vol] 54 mg/dL Normal 40-60 [facility] Comment on above: Performed By: #### C BC #### [facility] [address] [address] [address] Brea Causey Cholesterol in LDL [Mass/Vol] 24.6 mg/dL Normal [facility] Comment on above: Performed By: #### C BC #### [facility] [address] [place], [place] [address] Dr. Brea Causey Cholesterol.total/Cho lesterol in HDL [Mass ratio] 1.6 {ratio} Normal [facility] Comment on above: Performed By: #### C BC #### [facility] [address] [place], [place] [address] Dr. Brea Causey HDL NORMAL > or = 60 mg/dl - LO W CARDIOVASCULAR RISK <40 mg/dl - HIGH CARDIOVASCULAR RISK Normal [facility] Comment on above: Performed By: #### C BC #### [facility] [address] [place], [place] [address] Dr. Brea Causey LDL CALC NORMAL SEE BELOW Normal [facility] Comment on above: Result Comment: <100 mg/dl OPTIMAL 100 - 129 mg/dl NEAR OR ABOVE OPTIMAL 130 - 159 mg/dl BORDERLINE HIGH 160 - 189 mg/dl HIGH >190 mg/dl VERY HIGH Performed By: #### C BC #### [facility] [address] [place] [address] Dr. Brea Causey Triglyceride [Mass/Vol] 42 mg/dL Normal <=150 [facility] Comment on above: Performed By: #### C BC #### [facility] [address] [place] [address] Dr. Brea Causey VLDL CALC 8.4 mg/dL Normal [facility] Comment on above: Performed By: #### C BC #### [facility] [address] [place] [address] Dr. Brea Causey MAGNESIUMon 05-23-2022 Magnesium [Mass/Vol] 1.4 mg/dL Critically low 1.8-2.4 [facility] Comment on above: Performed By: #### C BC #### [facility] [address] [place] [address] Dr. Brea Causey PHOSPHORUSon 05-23-2022 Phosphate [Mass/Vol] 3.6 mg/dL Normal 2.6-4.7 [facility] Comment on above: Performed By: #### C BC #### [facility] [address] [place] [address] Dr. Brea Causey PROF 14(COMP METB)on 023 Albumin [Mass/Vol] 3.9 g/dL Normal 3.4-5.0 [facility] Comment on above: Performed By: #### C BC #### [facility] [address] [place] [address] Dr. Brea Causey Albumin/Globulin [Mass ratio] 1.2 {ratio} Normal [facility] Comment on above: Performed By: #### C BC #### [facility] [address] [place] [address] Dr. Brea Causey ALP [Catalytic activity/Vol] 190 U/L Critically high 46-116 [facility] Comment on above: Performed By: #### C BC #### [facility] [address] [place] [address] Dr. Brea Causey ALT [Catalytic activity/Vol] 26 U/L Normal 16-63 [facility] Comment on above: Performed By: #### C BC #### [facility] [address] [place] [address] Dr. Brea Causey Anion gap [Moles/Vol] 13.1 mmol/L Normal Th [facility] Comment on above: Performed By: #### C BC #### [facility] [address] [place] [address] Dr. Brea Causey AST [Catalytic activity/Vol] 18 U/L Normal 15-37 [facility] Comment on above: Performed By: #### C BC #### [facility] [address] [place] [address] Dr. Brea Causey Bilirubin [Mass/Vol] 0.4 mg/dL Normal 0.2-1.0 [facility] Comment on above: Performed By: #### C BC #### [facility] [address] [place] [address] Dr. Brea Causey Calcium [Mass/Vol] 7.8 mg/dL Critically low 8.5-10.[address] [facility] Comment on above: Performed By: #### C BC #### [facility] [address] [place] [address] Dr. Brea Causey Chloride [Moles/Vol] 95 mmol/L Critically low 98-107 [facility] Comment on above: Performed By: #### C BC #### [facility] [address] [place] [address] Dr. Brea Causey CO2 [Moles/Vol] 28.8 mmol/L Normal 21.0-32.0 [facility] Comment on above: Performed By: #### C BC #### [facility] [address] [place] [address] Dr. Brea Causey Creatinine [Mass/Vol] 1.03 mg/dL Normal 0.70-1.30 [facility] Comment on above: Performed By: #### C BC #### [facility] [address] [place] [address] Dr. Brea Causey EGFR-AF CITIZ[place] >60 Normal >=60 [facility] Comment on above: Performed By: #### C BC #### [facility] [address] [address] [address] Brea Causey EGFR-NON AF CITIZEN OF [place] >60 Normal >=60 [facility] Comment on above: Performed By: #### C BC #### [facility] [address] [address] [address] Brea Causey Globulin (S) [Mass/Vol] 3.2 g/dL Normal [facility] Comment on above: Performed By: #### C BC #### [facility] [address] [address] [address] Brea Causey Glucose [Mass/Vol] 155 mg/dL Critically high 74-106 [facility] Comment on above: Performed By: #### C BC #### [facility] [address] [address] [address] Brea Causey Potassium [Moles/Vol] 4.9 mmol/L Normal 3.5-5.1 [facility] Comment on above: Performed By: #### C BC #### [facility] [address] [address] [address] Brea Causey Protein [Mass/Vol] 7.1 g/dL Normal 6.4-8.2 [facility] Comment on above: Performed By: #### C BC #### [facility] [address] [address] [address] Brea Causey Sodium [Moles/Vol] 132 mmol/L Critically low 136-[address] [facility] Comment on above: Performed By: #### C BC #### [facility] [address] [address] [address] Brea Causey Urea nitrogen [Mass/Vol] 8.0 mg/dL Normal 7.0-18.0 [facility] Comment on above: Performed By: #### C BC #### [facility] [address] [address] [address] Brea Causey Urea nitrogen/Creatinine [Mass ratio] 7.8 mg/mg Normal [facility] Comment on above: Performed By: #### C BC #### [facility] [address] [place] [address] Dr. Brea Causey URIC ACID SERUMon 05-23-2022 Urate [Mass/Vol] 5.6 mg/dL Normal 3.5-7.2 [facility] Comment on above: Performed By: #### C BC #### [facility] [address] [place] [address] Dr. Brea Causey TESTOSTERONE, FREE,DIRECT, T OTALon 05-03-2022 Free Testosterone(Direct) 7.4 pg/mL Normal 6.6-18.1 [facility] Comment on above: Result Comment: Perf ormed at: BN Performed By: #### U CLINT, CMP, LIPID, DBIL, PHOS, MG #### [facility] [address] [place] [address] Dr. Brea Causey Testosterone [Mass/Vol] 494 ng/dL Normal 264-916 [facility] Comment on above: Result Comment: Adul t male reference interval is based on a population of healthy nonobese males (BMI <30) between 19 and 39 years old. Steven et.al. JCEM 2017,102;4523-5965. PMID: [id number]. Performed at: CB Performed By: #### U CLINT, CMP, LIPID, DBIL, PHOS, MG #### [facility] [address] [place] [address] Dr. Brea Causey FK506 (TACROLIMUS) WHOLE BLO ODon 05-02-2022 Tacrolimus (FK506), Blood 4.3 ng/mL Normal 2.0-20.0 [facility] Comment on above: Result Comment: Trou gh (immediately following transplant) 15.0 . Trough (steady state, 2 weeks or more after transplant): 3.0 - 8.0 . Performed by LC-MS/MS technology. Performed By: #### C BC #### [facility] [address] [place] [address] Dr. Brea Causey BILIRUBIN CONJUGATED (DIRECT )on 04-30-2022 BILI, CONJUGATED 0.1 mg/dL Normal 0.0-0.2 [facility] Comment on above: Performed By: #### U CLINT, CMP, LIPID, DBIL, PHOS, MG #### [facility] [address] [place] [address] Dr. Brea Causey CBC AUTO DIFFon 04-30-2022 BASO # 0.0 103/ul Normal 0.0-0.1 [facility] Comment on above: Performed By: #### U CLINT, CMP, LIPID, DBIL, PHOS, MG #### [facility] [address] [place] [address] Dr. Brea Causey Basophils/100 WBC (Bld) 0.5 % Normal 0.2-2.0 [facility] Comment on above: Performed By: #### U CLINT, CMP, LIPID, DBIL, PHOS, MG #### [facility] [address] [place] [address] Dr. Brea Causey EO # 0.1 103/ul Normal 0.0-0.7 [facility] Comment on above: Performed By: #### U CLINT, CMP, LIPID, DBIL, PHOS, MG #### [facility] [address] [place] [address] Dr. Brea Causey Eosinophils/100 WBC (Bld) 2.1 % Normal 0.9-7.0 [facility] Comment on above: Performed By: #### U CLINT, CMP, LIPID, DBIL, PHOS, MG #### [facility] [address] [place] [address] Dr. Brea Causey Erythrocyte distribution width (RBC) [Ratio] 13.2 % Normal 11.0-15.0 [facility] Comment on above: Performed By: #### U CLINT, CMP, LIPID, DBIL, PHOS, MG #### [facility] [address] [place] [address] Dr. Brea Causey Hematocrit (Bld) [Volume fraction] 37.0 % Critically low 42.0-54.0 [facility] Comment on above: Performed By: #### U CLINT, CMP, LIPID, DBIL, PHOS, MG #### [facility] [address] [place] [address] Dr. Brea Causey Hemoglobin (Bld) [Mass/Vol] 12.4 g/dL Critically low 14.0-18.0 [facility] Comment on above: Performed By: #### U CLINT, CMP, LIPID, DBIL, PHOS, MG #### [facility] [address] [address] [address] Brea Causey IG # 0.05 10e3/ul Critically high 0.00-0.03 [facility] Comment on above: Performed By: #### U CLINT, CMP, LIPID, DBIL, PHOS, MG #### [facility] [address] [place] [address] Dr. Brea Causey IG % 0.9 % Critically high 0.0-0.5 [facility] Comment on above: Performed By: #### U CLINT, CMP, LIPID, DBIL, PHOS, MG #### [facility] [address] [place] [address] Dr. Brea Causey LYMPH # 1.0 103/ul Critically low 1.2-3.8 [facility] Comment on above: Performed By: #### U CLINT, CMP, LIPID, DBIL, PHOS, MG #### [facility] [address] [place] [address] Dr. Brea Causey Lymphocytes/100 WBC (Bld) 16.4 % Critically low 20.5-60.0 [facility] Comment on above: Performed By: #### U CLINT, CMP, LIPID, DBIL, PHOS, MG #### [facility] [address] [place] [address] Dr. Brea Causey MANUAL DIFF REQ NO Normal [facility] Comment on above: Performed By: #### U CLINT, CMP, LIPID, DBIL, PHOS, MG #### [facility] [address] [address] [address] Brea Causey MCH (RBC) [Entitic mass] 29.0 pg Normal 25.9-34.0 [facility] Comment on above: Performed By: #### U CLINT, CMP, LIPID, DBIL, PHOS, MG #### [facility] [address] [place] [address] Dr. Brea Causey MCHC (RBC) [Mass/Vol] 33.5 g/dL Normal 29.9-35.2 [facility] Comment on above: Performed By: #### U CLINT, CMP, LIPID, DBIL, PHOS, MG #### [facility] [address] [place] [address] Dr. Brea Causey MCV (RBC) [Entitic vol] 86.7 fL Normal 80.0-94.0 [facility] Comment on above: Performed By: #### U CLINT, CMP, LIPID, DBIL, PHOS, MG #### [facility] [address] [place] [address] Dr. Brea Causey MONO # 0.7 103/ul Normal 0.3-0.8 [facility] Comment on above: Performed By: #### U CLINT, CMP, LIPID, DBIL, PHOS, MG #### [facility] [address] [place] [address] Dr. Brea Causey Monocytes/100 WBC (Bld) 11.6 % Normal 1.7-12.0 [facility] Comment on above: Performed By: #### U CLINT, CMP, LIPID, DBIL, PHOS, MG #### [facility] [address] [place] [address] Dr. Brea Causey NEUT # 4.0 103/ul Normal 1.4-6.5 [facility] Comment on above: Performed By: #### U CLINT, CMP, LIPID, DBIL, PHOS, MG #### [facility] [address] [place] [address] Dr. Brea Causey Neutrophils/100 WBC (Bld) 68.5 % Normal 43.0-75.0 [facility] Comment on above: Performed By: #### U CLINT, CMP, LIPID, DBIL, PHOS, MG #### [facility] [address] [place] [address] Dr. Brea Causey Platelet mean volume (Bld) [Entitic vol] 9.2 fL Critically low 9.5-13.5 [facility] Comment on above: Performed By: #### U CLINT, CMP, LIPID, DBIL, PHOS, MG #### [facility] [address] [address] [address] Brea Causey PLT 231 103/ul Normal 150-450 [facility] Comment on above: Performed By: #### U CLINT, CMP, LIPID, DBIL, PHOS, MG #### [facility] [address] [address] [address] Brea Causey RBC 4.27 106/ul Critically low 4.70-6.10 [facility] Comment on above: Performed By: #### U CLINT, CMP, LIPID, DBIL, PHOS, MG #### [facility] [address] [address] [address] Brea Causey WBC 5.9 103/ul Normal 4.0-11.0 [facility] Comment on above: Performed By: #### U CLINT, CMP, LIPID, DBIL, PHOS, MG #### [facility] [address] [address] [address] Brea Causey LIPID PROFILEon 04-30-2022 CHOL-HDL RATIO NORM SEE BELOW Normal [facility] Comment on above: Result Comment: 3.3 - 4.4 LOW RISK 4.4 - 7.1 AVERAGE RISK 7.1 - 11.0 MODERATE RISK >11.0 HIGH RISK Performed By: #### U CLINT, CMP, LIPID, DBIL, PHOS, MG #### [facility] [address] [address] [address] Brea Causey Cholesterol [Mass/Vol] 78 mg/dL Normal <=200 [facility] Comment on above: Performed By: #### U CLINT, CMP, LIPID, DBIL, PHOS, MG #### [facility] [address] [address] [address] Brea Causey Cholesterol in HDL [Mass/Vol] 41 mg/dL Normal 40-60 [facility] Comment on above: Performed By: #### U CLINT, CMP, LIPID, DBIL, PHOS, MG #### [facility] [address] [address] [address] Brea Causey Cholesterol in LDL [Mass/Vol] 17.8 mg/dL Normal [facility] Comment on above: Performed By: #### U CLINT, CMP, LIPID, DBIL, PHOS, MG #### [facility] [address] [address] [address] Brea Causey Cholesterol.total/Cho lesterol in HDL [Mass ratio] 1.9 {ratio} Normal [facility] Comment on above: Performed By: #### U CLINT, CMP, LIPID, DBIL, PHOS, MG #### [facility] [address] [address] [address] Brea Causey HDL NORMAL > or = 60 mg/dl - LO W CARDIOVASCULAR RISK <40 mg/dl - HIGH CARDIOVASCULAR RISK Normal [facility] Comment on above: Performed By: #### U CLINT, CMP, LIPID, DBIL, PHOS, MG #### [facility] [address] [address] [address] Brea Causey LDL CALC NORMAL SEE BELOW Normal [facility] Comment on above: Result Comment: <100 mg/dl OPTIMAL 100 - 129 mg/dl NEAR OR ABOVE OPTIMAL 130 - 159 mg/dl BORDERLINE HIGH 160 - 189 mg/dl HIGH >190 mg/dl VERY HIGH Performed By: #### U CLINT, CMP, LIPID, DBIL, PHOS, MG #### [facility] [address] [address] [address] Brea Causey Triglyceride [Mass/Vol] 96 mg/dL Normal <=150 [facility] Comment on above: Performed By: #### U CLINT, CMP, LIPID, DBIL, PHOS, MG #### [facility] [address] [address] [address] Brea Causey VLDL CALC 19.2 mg/dL Normal [facility] Comment on above: Performed By: #### U CLINT, CMP, LIPID, DBIL, PHOS, MG #### [facility] [address] [address] [address] Brea Causey MAGNESIUMon 04-30-2022 Magnesium [Mass/Vol] 1.7 mg/dL Critically low 1.8-2.4 [facility] Comment on above: Performed By: #### U CLINT, CMP, LIPID, DBIL, PHOS, MG #### [facility] [address] [place] [address] Dr. Brea Causey PHOSPHORUSon 04-30-2022 Phosphate [Mass/Vol] 3.6 mg/dL Normal 2.6-4.7 [facility] Comment on above: Performed By: #### U CLINT, CMP, LIPID, DBIL, PHOS, MG #### [facility] [address] [address] [address] Brea Causey PROF 14(COMP METB)on Albumin [Mass/Vol] 4.0 g/dL Normal 3.4-5.0 [facility] Comment on above: Performed By: #### U CLINT, CMP, LIPID, DBIL, PHOS, MG #### [facility] [address] [place] [address] Dr. Brea Causey Albumin/Globulin [Mass ratio] 1.3 {ratio} Normal [facility] Comment on above: Performed By: #### U CLINT, CMP, LIPID, DBIL, PHOS, MG #### [facility] [address] [place] [address] Dr. Brea Causey ALP [Catalytic activity/Vol] 196 U/L Critically high 46-116 [facility] Comment on above: Performed By: #### U CLINT, CMP, LIPID, DBIL, PHOS, MG #### [facility] [address] [place] [address] Dr. Brea Causey ALT [Catalytic activity/Vol] 21 U/L Normal 16-63 [facility] Comment on above: Performed By: #### U CLINT, CMP, LIPID, DBIL, PHOS, MG #### [facility] [address] [place] [address] Dr. Brea Causey Anion gap [Moles/Vol] 10.5 mmol/L Normal [facility] Comment on above: Performed By: #### U CLINT, CMP, LIPID, DBIL, PHOS, MG #### [facility] [address] [place] [address] Dr. Brea Causey AST [Catalytic activity/Vol] 16 U/L Normal 15-37 [facility] Comment on above: Performed By: #### U CLINT, CMP, LIPID, DBIL, PHOS, MG #### [facility] [address] [address] [address] Brea Causey Bilirubin [Mass/Vol] 0.3 mg/dL Normal 0.2-1.0 [facility] Comment on above: Performed By: #### U CLINT, CMP, LIPID, DBIL, PHOS, MG #### [facility] [address] [address] [address] Brea Causey Calcium [Mass/Vol] 8.6 mg/dL Normal 8.5-10.1 [facility] Comment on above: Performed By: #### U CLINT, CMP, LIPID, DBIL, PHOS, MG #### [facility] [address] [address] [address] Brea Causey Chloride [Moles/Vol] 95 mmol/L Critically low 98-107 [facility] Comment on above: Performed By: #### U CLINT, CMP, LIPID, DBIL, PHOS, MG #### [facility] [address] [address] [address] Brea Causey CO2 [Moles/Vol] 30.9 mmol/L Normal 21.0-32.0 [facility] Comment on above: Performed By: #### U CLINT, CMP, LIPID, DBIL, PHOS, MG #### [facility] [address] [address] [address] Brea Causey Creatinine [Mass/Vol] 1.00 mg/dL Normal 0.70-1.30 [facility] Comment on above: Performed By: #### U CLINT, CMP, LIPID, DBIL, PHOS, MG #### [facility] [address] [address] [address] Brea Causey EGFR-AF [place]IZ[place] >60 Normal >=60 [facility] Comment on above: Performed By: #### U CLINT, CMP, LIPID, DBIL, PHOS, MG #### [facility] [address] [address] [address] Brea Causey EGFR-NON AF CITIZEN [place] >60 Normal >=60 [facility] Comment on above: Performed By: #### U CLINT, CMP, LIPID, DBIL, PHOS, MG #### [facility] [address] [place] [address] Dr. Brea Causey Globulin (S) [Mass/Vol] 3.2 g/dL Normal [facility] Comment on above: Performed By: #### U CLINT, CMP, LIPID, DBIL, PHOS, MG #### [facility] [address] [address] [address] Brea Causey Glucose [Mass/Vol] 160 mg/dL Critically high 74-106 [facility] Comment on above: Performed By: #### U CLINT, CMP, LIPID, DBIL, PHOS, MG #### [facility] [address] [place] [address] Dr. Brea Causey Potassium [Moles/Vol] 5.4 mmol/L Critically high 3.5-5.1 [facility] Comment on above: Performed By: #### U CLINT, CMP, LIPID, DBIL, PHOS, MG #### [facility] [address] [place] [address] Dr. Brea Causey Protein [Mass/Vol] 7.2 g/dL Normal 6.4-8.2 [facility] Comment on above: Performed By: #### U CLINT, CMP, LIPID, DBIL, PHOS, MG #### [facility] [address] [place] [address] Dr. Brea Causey Sodium [Moles/Vol] 131 mmol/L Critically low 136-145 Th [facility] Comment on above: Performed By: #### U CLINT, CMP, LIPID, DBIL, PHOS, MG #### [facility] [address] [address] [address] Brea Causey Urea nitrogen [Mass/Vol] 11.0 mg/dL Normal 7.0-18.0 [facility] Comment on above: Performed By: #### U CLINT, CMP, LIPID, DBIL, PHOS, MG #### [facility] [address] [place] [address] Dr. Brea Causey Urea nitrogen/Creatinine [Mass ratio] 11.0 mg/mg Normal [facility] Comment on above: Performed By: #### U CLINT, CMP, LIPID, DBIL, PHOS, MG #### [facility] [address] [place] [address] Dr. Brea Causey URIC ACID SERUMon 04-30-2022 Urate [Mass/Vol] 5.9 mg/dL Normal 3.5-7.2 [facility] Comment on above: Performed By: #### U CLINT, CMP, LIPID, DBIL, PHOS, MG #### [facility] [address] [place] [address] Dr. Brea Causey FK506 (TACROLIMUS) WHOLE BLO ODon 04-06-2022 Tacrolimus (FK506), Blood 3.0 ng/mL Normal 2.0-20.0 [facility] Comment on above: Result Comment: Trou gh (immediately following transplant) 15.0 . Trough (steady state, 2 weeks or more after transplant): 3.0 - 8.0 . Performed by LC-MS/MS technology. Performed By: #### U CLINT, CMP, LIPID, DBIL, PHOS, MG #### [facility] [address] [place] [address] Dr. Brea Causey BILIRUBIN CONJUGATED (DIRECT )on 04-03-2022 BILI, CONJUGATED 0.1 mg/dL Normal 0.0-0.2 [facility] Comment on above: Performed By: #### U CLINT, CMP, LIPID, DBIL, PHOS, MG #### [facility] [address] [place] [address] Dr. Brea Causey CBC AUTO DIFFon 04-03-2022 BASO # 0.0 103/ul Normal 0.0-0.1 [facility] Comment on above: Performed By: #### U CLINT, CMP, LIPID, DBIL, PHOS, MG #### [facility] [address] [place] [address] Dr. Brea Causey Basophils/100 WBC (Bld) 0.5 % Normal 0.2-2.0 [facility] Comment on above: Performed By: #### U CLINT, CMP, LIPID, DBIL, PHOS, MG #### [facility] [address] [address] [address] Brea Causey EO # 0.1 103/ul Normal 0.0-0.7 [facility] Comment on above: Performed By: #### U CLINT, CMP, LIPID, DBIL, PHOS, MG #### [facility] [address] [place] [address] Dr. Brea Causey Eosinophils/100 WBC (Bld) 2.5 % Normal 0.9-7.0 [facility] Comment on above: Performed By: #### U CLINT, CMP, LIPID, DBIL, PHOS, MG #### [facility] [address] [place] [address] Dr. Brea Causey Erythrocyte distribution width (RBC) [Ratio] 13.3 % Normal 11.0-15.0 [facility] Comment on above: Performed By: #### U CLINT, CMP, LIPID, DBIL, PHOS, MG #### [facility] [address] [place] [address] Dr. Brea Causey Hematocrit (Bld) [Volume fraction] 36.4 % Critically low 42.0-54.0 [facility] Comment on above: Performed By: #### U CLINT, CMP, LIPID, DBIL, PHOS, MG #### [facility] [address] [place] [address] Dr. Brea Causey Hemoglobin (Bld) [Mass/Vol] 12.3 g/dL Critically low 14.0-18.0 [facility] Comment on above: Performed By: #### U CLINT, CMP, LIPID, DBIL, PHOS, MG #### [facility] [address] [place] [address] Dr. Brea Causey IG # 0.03 10e3/ul Normal 0.00-0.03 [facility] Comment on above: Performed By: #### U CLINT, CMP, LIPID, DBIL, PHOS, MG #### [facility] [address] [place] [address] Dr. Brea Causey IG % 0.5 % Normal 0.0-0.5 [facility] Comment on above: Performed By: #### U CLINT, CMP, LIPID, DBIL, PHOS, MG #### [facility] [address] [address] [address] Brea Causey LYMPH # 0.9 103/ul Critically low 1.2-3.8 [facility] Comment on above: Performed By: #### U CLINT, CMP, LIPID, DBIL, PHOS, MG #### [facility] [address] [place] [address] Dr. Brea Causey Lymphocytes/100 WBC (Bld) 16.9 % Critically low 20.5-60.0 [facility] Comment on above: Performed By: #### U CLINT, CMP, LIPID, DBIL, PHOS, MG #### [facility] [address] [place] [address] Dr. Brea Causey MANUAL DIFF REQ NO Normal [facility] Comment on above: Performed By: #### U CLINT, CMP, LIPID, DBIL, PHOS, MG #### [facility] [address] [place] [address] Dr. Brea Causey MCH (RBC) [Entitic mass] 29.3 pg Normal 25.9-34.0 [facility] Comment on above: Performed By: #### U CLINT, CMP, LIPID, DBIL, PHOS, MG #### [facility] [address] [place] [address] Dr. Brea Causey MCHC (RBC) [Mass/Vol] 33.8 g/dL Normal 29.9-35.2 [facility] Comment on above: Performed By: #### U CLINT, CMP, LIPID, DBIL, PHOS, MG #### [facility] [address] [place] [address] Dr. Brea Causey MCV (RBC) [Entitic vol] 86.7 fL Normal 80.0-94.0 [facility] Comment on above: Performed By: #### U CLNIT, CMP, LIPID, DBIL, PHOS, MG #### [facility] [address] [place] [address] Dr. Brea Causey MONO # 0.6 103/ul Normal 0.3-0.8 [facility] Comment on above: Performed By: #### U CLINT, CMP, LIPID, DBIL, PHOS, MG #### [facility] [address] [place] [address] Dr. Brea Causey Monocytes/100 WBC (Bld) 10.1 % Normal 1.7-12.0 [facility] Comment on above: Performed By: #### U CLINT, CMP, LIPID, DBIL, PHOS, MG #### [facility] [address] [place] [address] Dr. Brea Causey NEUT # 3.9 103/ul Normal 1.4-6.5 [facility] Comment on above: Performed By: #### U CLINT, CMP, LIPID, DBIL, PHOS, MG #### [facility] [address] [place] [address] Dr. Brea Causey Neutrophils/100 WBC (Bld) 69.5 % Normal 43.0-75.0 [facility] Comment on above: Performed By: #### U CLINT, CMP, LIPID, DBIL, PHOS, MG #### [facility] [address] [place] [address] Dr. Brea Causey Platelet mean volume (Bld) [Entitic vol] 9.2 fL Critically low 9.5-13.5 [facility] Comment on above: Performed By: #### U CLINT, CMP, LIPID, DBIL, PHOS, MG #### [facility] [address] [place] [address] Dr. Brea Causey PLT 228 103/ul Normal 150-450 [facility] Comment on above: Performed By: #### U CLINT, CMP, LIPID, DBIL, PHOS, MG #### [facility] [address] [place] [address] Dr. Brea Causey RBC 4.20 106/ul Critically low 4.70-6.10 [facility] Comment on above: Performed By: #### U CLINT, CMP, LIPID, DBIL, PHOS, MG #### [facility] [address] [place] [address] Dr. Brea Causey WBC 5.6 103/ul Normal 4.0-11.0 [facility] Comment on above: Performed By: #### U CLINT, CMP, LIPID, DBIL, PHOS, MG #### [facility] [address] [address] [address] Brea Causey LIPID PROFILEon 04-03-2022 CHOL-HDL RATIO NORM SEE BELOW Normal [facility] Comment on above: Result Comment: 3.3 - 4.4 LOW RISK 4.4 - 7.1 AVERAGE RISK 7.1 - 11.0 MODERATE RISK >11.0 HIGH RISK Performed By: #### U CLINT, CMP, LIPID, DBIL, PHOS, MG #### [facility] [address] [address] [address] Brea Causey Cholesterol [Mass/Vol] 84 mg/dL Normal <=200 [facility] Comment on above: Performed By: #### U CLINT, CMP, LIPID, DBIL, PHOS, MG #### [facility] [address] [address] [address] Brea Causey Cholesterol in HDL [Mass/Vol] 45 mg/dL Normal 40-60 [facility] Comment on above: Performed By: #### U CLINT, CMP, LIPID, DBIL, PHOS, MG #### [facility] [address] [place] [address] Dr. Brea Causey Cholesterol in LDL [Mass/Vol] 22.8 mg/dL Normal [facility] Comment on above: Performed By: #### U CLINT, CMP, LIPID, DBIL, PHOS, MG #### [facility] [address] [place] [address] Dr. Brea Causey Cholesterol.total/Cho lesterol in HDL [Mass ratio] 1.9 {ratio} Normal [facility] Comment on above: Performed By: #### U CLINT, CMP, LIPID, DBIL, PHOS, MG #### [facility] [address] [place] [address] Dr. Brea Causey HDL NORMAL > or = 60 mg/dl - LO W CARDIOVASCULAR RISK <40 mg/dl - HIGH CARDIOVASCULAR RISK Normal [facility] Comment on above: Performed By: #### U CLINT, CMP, LIPID, DBIL, PHOS, MG #### [facility] [address] [address] [address] Brea Causey LDL CALC NORMAL SEE BELOW Normal [facility] Comment on above: Result Comment: <100 mg/dl OPTIMAL 100 - 129 mg/dl NEAR OR ABOVE OPTIMAL 130 - 159 mg/dl BORDERLINE HIGH 160 - 189 mg/dl HIGH >190 mg/dl VERY HIGH Performed By: #### U CLINT, CMP, LIPID, DBIL, PHOS, MG #### [facility] [address] [address] [address] Brea Causey Triglyceride [Mass/Vol] 81 mg/dL Normal <=150 [facility] Comment on above: Performed By: #### U CLINT, CMP, LIPID, DBIL, PHOS, MG #### [facility] [address] [place] [address] Dr. Brea Causey VLDL CALC 16.2 mg/dL Normal [facility] Comment on above: Performed By: #### U CLINT, CMP, LIPID, DBIL, PHOS, MG #### [facility] [address] [place] [address] Dr. Brea Causey MAGNESIUMon 04-03-2022 Magnesium [Mass/Vol] 1.6 mg/dL Critically low 1.8-2.4 [facility] Comment on above: Performed By: #### U CLINT, CMP, LIPID, DBIL, PHOS, MG #### [facility] [address] [place] [address] Dr. Brea Causey PHOSPHORUSon 04-03-2022 Phosphate [Mass/Vol] 3.9 mg/dL Normal 2.6-4.7 [facility] Comment on above: Performed By: #### U CLINT, CMP, LIPID, DBIL, PHOS, MG #### [facility] [address] [place] [address] Dr. Brea Causey PROF 14(COMP METB)on 022 Albumin [Mass/Vol] 4.0 g/dL Normal 3.4-5.0 [facility] Comment on above: Performed By: #### U CLINT, CMP, LIPID, DBIL, PHOS, MG #### [facility] [address] [place] [address] Dr. Brea Causey Albumin/Globulin [Mass ratio] 1.2 {ratio} Normal [facility] Comment on above: Performed By: #### U CLINT, CMP, LIPID, DBIL, PHOS, MG #### [facility] [address] [place] [address] Dr. Brea Causey ALP [Catalytic activity/Vol] 196 U/L Critically high 46-116 [facility] Comment on above: Performed By: #### U CLINT, CMP, LIPID, DBIL, PHOS, MG #### [facility] [address] [place] [address] Dr. Brea Causey ALT [Catalytic activity/Vol] 19 U/L Normal 16-63 [facility] Comment on above: Performed By: #### U CLINT, CMP, LIPID, DBIL, PHOS, MG #### [facility] [address] [place] [address] Dr. Brea Causey Anion gap [Moles/Vol] 10.2 mmol/L Normal [facility] Comment on above: Performed By: #### U CLINT, CMP, LIPID, DBIL, PHOS, MG #### [facility] [address] [place] [address] Dr. Brea Causey AST [Catalytic activity/Vol] 15 U/L Normal 15-37 [facility] Comment on above: Performed By: #### U CLINT, CMP, LIPID, DBIL, PHOS, MG #### [facility] [address] [place] [address] Dr. Brea Causey Bilirubin [Mass/Vol] 0.3 mg/dL Normal 0.2-1.0 [facility] Comment on above: Performed By: #### U CLINT, CMP, LIPID, DBIL, PHOS, MG #### [facility] [address] [place] [address] Dr. Brea Causey Calcium [Mass/Vol] 8.2 mg/dL Critically low 8.5-10.[address] [facility] Comment on above: Performed By: #### U CLINT, CMP, LIPID, DBIL, PHOS, MG #### [facility] [address] [address] [address] Brea Causey Chloride [Moles/Vol] 97 mmol/L Critically low 98-107 [facility] Comment on above: Performed By: #### U CLINT, CMP, LIPID, DBIL, PHOS, MG #### [facility] [address] [address] [address] Brea Causey CO2 [Moles/Vol] 28.2 mmol/L Normal 21.0-32.0 [facility] Comment on above: Performed By: #### U CLINT, CMP, LIPID, DBIL, PHOS, MG #### [facility] [address] [place] [address] Dr. Brea Causey Creatinine [Mass/Vol] 1.00 mg/dL Normal 0.70-1.30 [facility] Comment on above: Performed By: #### U CLINT, CMP, LIPID, DBIL, PHOS, MG #### [facility] [address] [place] [address] Dr. Brea Causey EGFR-AF CITIZEN OF [place] >60 Normal >=60 [facility] Comment on above: Performed By: #### U CLINT, CMP, LIPID, DBIL, PHOS, MG #### [facility] [address] [place] [address] Dr. Brea Causey EGFR-NON AF CITIZEN OF [place] >60 Normal >=60 [facility] Comment on above: Performed By: #### U CLINT, CMP, LIPID, DBIL, PHOS, MG #### [facility] [address] [place] [address] Dr. Brea Causey Globulin (S) [Mass/Vol] 3.3 g/dL Normal [facility] Comment on above: Performed By: #### U CLINT, CMP, LIPID, DBIL, PHOS, MG #### [facility] [address] [place] [address] Dr. Brea Causey Glucose [Mass/Vol] 164 mg/dL Critically high 74-106 [facility] Comment on above: Performed By: #### U CLINT, CMP, LIPID, DBIL, PHOS, MG #### [facility] [address] [address] [address] Brea Causey Potassium [Moles/Vol] 4.4 mmol/L Normal 3.5-5.1 [facility] Comment on above: Performed By: #### U CLINT, CMP, LIPID, DBIL, PHOS, MG #### [facility] [address] [address] [address] Brea Causey Protein [Mass/Vol] 7.3 g/dL Normal 6.4-8.2 [facility] Comment on above: Performed By: #### U CLINT, CMP, LIPID, DBIL, PHOS, MG #### [facility] [address] [place] [address] Dr. Brea Causey Sodium [Moles/Vol] 131 mmol/L Critically low 136-145 Th [facility] Comment on above: Performed By: #### U CLINT, CMP, LIPID, DBIL, PHOS, MG #### [facility] [address] [place] [address] Dr. Brea Causey Urea nitrogen [Mass/Vol] 13.0 mg/dL Normal 7.0-18.0 [facility] Comment on above: Performed By: #### U CLINT, CMP, LIPID, DBIL, PHOS, MG #### [facility] [address] [place] [address] Dr. Brea Causey Urea nitrogen/Creatinine [Mass ratio] 13.0 mg/mg Normal [facility] Comment on above: Performed By: #### U CLINT, CMP, LIPID, DBIL, PHOS, MG #### [facility] [address] [place] [address] Dr. Brea Causey URIC ACID SERUMon 04-03-2022 Urate [Mass/Vol] 6.1 mg/dL Normal 3.5-7.2 [facility] Comment on above: Performed By: #### U CLINT, CMP, LIPID, DBIL, PHOS, MG #### [facility] [address] [place] [address] Dr. Brea Causey TESTOSTERONE, FREE,DIRECT, Sherron OTALomolina 03-13-2022 Free Testosterone(Direct) 6.9 pg/mL Normal 6.6-18.1 [facility] Comment on above: Result Comment: Perf ormed at: BN Performed By: #### T ESTFRD #### [facility] [address] [place] [address] Dr. Brea Causey Testosterone [Mass/Vol] 428 ng/dL Normal 264-916 [facility] Comment on above: Result Comment: Adul t male reference interval is based on a population of healthy nonobese males (BMI <30) between 19 and 39 years old. Steven et.al. JCEM 2017,102;5817-3359. PMID: [id number]. Performed at: CB Performed By: #### T ESTFRD #### [facility] [address] [place] [address] Dr. Brea Causey BK VIRUS PCR QUANTon 022 BKV DNA QUANT PCR PLASMA Negative Normal Negative [facility] Comment on above: Result Comment: No B K DNA detected. . The linear range of the assay is 22 - 100,000,000 IU/mL. Performed By: #### B KVIRUS #### [facility] [address] [address] [address] Brea Causey Log10 BKV DNA Plasma Normal [facility] Comment on above: Performed By: #### B KVIRUS #### [facility] [address] [place] [address] Dr. Brea Causey FK506 (TACROLIMUS) WHOLE BLO ODon 03-11-2022 Tacrolimus (FK506), Blood 4.7 ng/mL Normal 2.0-20.0 [facility] Comment on above: Result Comment: Trou gh (immediately following transplant) 15.0 . Trough (steady state, 2 weeks or more after transplant): 3.0 - 8.0 . Performed by LC-MS/MS technology. Performed By: #### C BC #### [facility] [address] [place] [address] Dr. Brea Causey BILIRUBIN CONJUGATED (DIRECT )on 03-08-2022 BILI, CONJUGATED 0.1 mg/dL Normal 0.0-0.2 [facility] Comment on above: Performed By: #### U CLINT, CMP, LIPID, DBIL, PHOS, MG #### [facility] [address] [address] [address] Brea Causey CBC AUTO DIFFon 03-08-2022 BASO # 0.0 103/ul Normal 0.0-0.1 [facility] Comment on above: Performed By: #### U CLINT, CMP, LIPID, DBIL, PHOS, MG #### [facility] [address] [address] [address] Brea Causey Basophils/100 WBC (Bld) 0.7 % Normal 0.2-2.0 [facility] Comment on above: Performed By: #### U CLINT, CMP, LIPID, DBIL, PHOS, MG #### [facility] [address] [place] [address] Dr. Brea Causey EO # 0.2 103/ul Normal 0.0-0.7 [facility] Comment on above: Performed By: #### U CLINT, CMP, LIPID, DBIL, PHOS, MG #### [facility] [address] [place] [address] Dr. Brea Causey Eosinophils/100 WBC (Bld) 3.1 % Normal 0.9-7.0 [facility] Comment on above: Performed By: #### U CLINT, CMP, LIPID, DBIL, PHOS, MG #### [facility] [address] [place] [address] Dr. Brea Causey Erythrocyte distribution width (RBC) [Ratio] 13.3 % Normal 11.0-15.0 [facility] Comment on above: Performed By: #### U CLINT, CMP, LIPID, DBIL, PHOS, MG #### [facility] [address] [place] [address] Dr. Brea Causey Hematocrit (Bld) [Volume fraction] 35.7 % Critically low 42.0-54.0 [facility] Comment on above: Performed By: #### U CLINT, CMP, LIPID, DBIL, PHOS, MG #### [facility] [address] [place] [address] Dr. Brea Causey Hemoglobin (Bld) [Mass/Vol] 12.0 g/dL Critically low 14.0-18.0 [facility] Comment on above: Performed By: #### U CLINT, CMP, LIPID, DBIL, PHOS, MG #### [facility] [address] [place] [address] Dr. Brea Causey IG # 0.06 10e3/ul Critically high 0.00-0.03 [facility] Comment on above: Performed By: #### U CLINT, CMP, LIPID, DBIL, PHOS, MG #### [facility] [address] [place] [address] Dr. Brea Causey IG % 1.0 % Critically high 0.0-0.5 [facility] Comment on above: Performed By: #### U CLINT, CMP, LIPID, DBIL, PHOS, MG #### [facility] [address] [place] [address] Dr. Brea Causey LYMPH # 0.8 103/ul Critically low 1.2-3.8 [facility] Comment on above: Performed By: #### U CLINT, CMP, LIPID, DBIL, PHOS, MG #### [facility] [address] [place] [address] Dr. Brea Causey Lymphocytes/100 WBC (Bld) 12.9 % Critically low 20.5-60.0 [facility] Comment on above: Performed By: #### U CLINT, CMP, LIPID, DBIL, PHOS, MG #### [facility] [address] [place] [address] Dr. Brea Causey MANUAL DIFF REQ NO Normal [facility] Comment on above: Performed By: #### U CLINT, CMP, LIPID, DBIL, PHOS, MG #### [facility] [address] [place] [address] Dr. Brea Causey MCH (RBC) [Entitic mass] 29.5 pg Normal 25.9-34.0 [facility] Comment on above: Performed By: #### U CLINT, CMP, LIPID, DBIL, PHOS, MG #### [facility] [address] [address] [address] Brea Causey MCHC (RBC) [Mass/Vol] 33.6 g/dL Normal 29.9-35.2 [facility] Comment on above: Performed By: #### U CLINT, CMP, LIPID, DBIL, PHOS, MG #### [facility] [address] [place] [address] Dr. Brea Causey MCV (RBC) [Entitic vol] 87.7 fL Normal 80.0-94.0 [facility] Comment on above: Performed By: #### U CLINT, CMP, LIPID, DBIL, PHOS, MG #### [facility] [address] [place] [address] Dr. Brea Causey MONO # 0.6 103/ul Normal 0.3-0.8 [facility] Comment on above: Performed By: #### U CLINT, CMP, LIPID, DBIL, PHOS, MG #### [facility] [address] [place] [address] Dr. Brea Causey Monocytes/100 WBC (Bld) 9.8 % Normal 1.7-12.0 [facility] Comment on above: Performed By: #### U CLINT, CMP, LIPID, DBIL, PHOS, MG #### [facility] [address] [place] [address] Dr. Brea Causey NEUT # 4.4 103/ul Normal 1.4-6.5 [facility] Comment on above: Performed By: #### U CLINT, CMP, LIPID, DBIL, PHOS, MG #### [facility] [address] [place] [address] Dr. Brea Causey Neutrophils/100 WBC (Bld) 72.5 % Normal 43.0-75.0 [facility] Comment on above: Performed By: #### U CLINT, CMP, LIPID, DBIL, PHOS, MG #### [facility] [address] [place] [address] Dr. Brea Causey Platelet mean volume (Bld) [Entitic vol] 9.6 fL Normal 9.5-13.5 [facility] Comment on above: Performed By: #### U CLINT, CMP, LIPID, DBIL, PHOS, MG #### [facility] [address] [address] [address] Brea Causey PLT 265 103/ul Normal 150-450 [facility] Comment on above: Performed By: #### U CLINT, CMP, LIPID, DBIL, PHOS, MG #### [facility] [address] [address] [address] Brea Causey RBC 4.07 106/ul Critically low 4.70-6.10 [facility] Comment on above: Performed By: #### U CLINT, CMP, LIPID, DBIL, PHOS, MG #### [facility] [address] [address] [address] Brea Causey WBC 6.0 103/ul Normal 4.0-11.0 [facility] Comment on above: Performed By: #### U CLINT, CMP, LIPID, DBIL, PHOS, MG #### [facility] [address] [address] [address] Brea Causey GLYCOHEMOGLOBIN A1Con 2021 ADA RECOMMENDATION SEE BELOW Normal [facility] Comment on above: Result Comment: ADA RECOMMENDED LIMIT 4.0 - 6.0 ADA THERAPEUTIC TARGET < 7.0 ACTION SUGGESTED > 7.0 Performed By: #### U CLINT, CMP, LIPID, DBIL, PHOS, MG #### [facility] [address] [address] [address] Brea Causey Glucose [Mass/Vol] 169 mg/dL Normal [facility] Comment on above: Performed By: #### U CLINT, CMP, LIPID, DBIL, PHOS, MG #### [facility] [address] [address] [address] Brea Causey HbA1c (Bld) [Mass fraction] 7.5 % Critically high 4.5-6.2 [facility] Comment on above: Performed By: #### U CLINT, CMP, LIPID, DBIL, PHOS, MG #### [facility] [address] [address] [address] Brea Causey LIPID PROFILEon 03-08-2022 CHOL-HDL RATIO NORM SEE BELOW Normal [facility] Comment on above: Result Comment: 3.3 - 4.4 LOW RISK 4.4 - 7.1 AVERAGE RISK 7.1 - 11.0 MODERATE RISK >11.0 HIGH RISK Performed By: #### U CLINT, CMP, LIPID, DBIL, PHOS, MG #### [facility] [address] [address] [address] Brea Causey Cholesterol [Mass/Vol] 77 mg/dL Normal <=200 [facility] Comment on above: Performed By: #### U CLINT, CMP, LIPID, DBIL, PHOS, MG #### [facility] [address] [address] [address] Brea Causey Cholesterol in HDL [Mass/Vol] 49 mg/dL Normal 40-60 [facility] Comment on above: Performed By: #### U CLINT, CMP, LIPID, DBIL, PHOS, MG #### [facility] [address] [address] [address] Brea Causey Cholesterol in LDL [Mass/Vol] 20.4 mg/dL Normal [facility] Comment on above: Performed By: #### U CLINT, CMP, LIPID, DBIL, PHOS, MG #### [facility] [address] [address] [address] Brea Causey Cholesterol.total/Cho lesterol in HDL [Mass ratio] 1.6 {ratio} Normal [facility] Comment on above: Performed By: #### U CLINT, CMP, LIPID, DBIL, PHOS, MG #### [facility] [address] [address] [address] Brea Causey HDL NORMAL > or = 60 mg/dl - LO W CARDIOVASCULAR RISK <40 mg/dl - HIGH CARDIOVASCULAR RISK Normal [facility] Comment on above: Performed By: #### U CLINT, CMP, LIPID, DBIL, PHOS, MG #### [facility] [address] [address] [address] Brea Causey LDL CALC NORMAL SEE BELOW Normal [facility] Comment on above: Result Comment: <100 mg/dl OPTIMAL 100 - 129 mg/dl NEAR OR ABOVE OPTIMAL 130 - 159 mg/dl BORDERLINE HIGH 160 - 189 mg/dl HIGH >190 mg/dl VERY HIGH Performed By: #### U CLINT, CMP, LIPID, DBIL, PHOS, MG #### [facility] [address] [address] [address] Brea Causey Triglyceride [Mass/Vol] 38 mg/dL Normal <=150 [facility] Comment on above: Performed By: #### U CLINT, CMP, LIPID, DBIL, PHOS, MG #### [facility] [address] [address] [address] Brea Causey VLDL CALC 7.6 mg/dL Normal [facility] Comment on above: Performed By: #### U CLINT, CMP, LIPID, DBIL, PHOS, MG #### [facility] [address] [place] [address] Dr. Brea Causey MAGNESIUMon 03-08-2022 Magnesium [Mass/Vol] 1.5 mg/dL Critically low 1.8-2.4 [facility] Comment on above: Performed By: #### U CLINT, CMP, LIPID, DBIL, PHOS, MG #### [facility] [address] [place] [address] Dr. Brea Causey PHOSPHORUSon 03-08-2022 Phosphate [Mass/Vol] 3.6 mg/dL Normal 2.6-4.7 [facility] Comment on above: Performed By: #### U CLINT, CMP, LIPID, DBIL, PHOS, MG #### [facility] [address] [place] [address] Dr. Brea Causey PROF 14(COMP METB)on 022 Albumin [Mass/Vol] 4.0 g/dL Normal 3.4-5.0 [facility] Comment on above: Performed By: #### U CLINT, CMP, LIPID, DBIL, PHOS, MG #### [facility] [address] [place] [address] Dr. Brea Causey Albumin/Globulin [Mass ratio] 1.2 {ratio} Normal [facility] Comment on above: Performed By: #### U CLINT, CMP, LIPID, DBIL, PHOS, MG #### [facility] [address] [address] [address] Brea Causey ALP [Catalytic activity/Vol] 176 U/L Critically high 46-116 [facility] Comment on above: Performed By: #### U CLINT, CMP, LIPID, DBIL, PHOS, MG #### [facility] [address] [place] [address] Dr. Brea Causey ALT [Catalytic activity/Vol] 21 U/L Normal 16-63 [facility] Comment on above: Performed By: #### U CLINT, CMP, LIPID, DBIL, PHOS, MG #### [facility] [address] [address] [address] Brea Causey Anion gap [Moles/Vol] 12.0 mmol/L Normal [facility] Comment on above: Performed By: #### U CLINT, CMP, LIPID, DBIL, PHOS, MG #### [facility] [address] [place] [address] Dr. Brea Causey AST [Catalytic activity/Vol] 13 U/L Critically low 15-37 [facility] Comment on above: Performed By: #### U CLINT, CMP, LIPID, DBIL, PHOS, MG #### [facility] [address] [place] [address] Dr. Brea Causey Bilirubin [Mass/Vol] 0.3 mg/dL Normal 0.2-1.0 [facility] Comment on above: Performed By: #### U CLINT, CMP, LIPID, DBIL, PHOS, MG #### [facility] [address] [place] [address] Dr. Brea Causey Calcium [Mass/Vol] 7.9 mg/dL Critically low 8.5-10.[address] [facility] Comment on above: Performed By: #### U CLINT, CMP, LIPID, DBIL, PHOS, MG #### [facility] [address] [place] [address] Dr. Brea Causey Chloride [Moles/Vol] 100 mmol/L Normal 98-107 [facility] Comment on above: Performed By: #### U CLINT, CMP, LIPID, DBIL, PHOS, MG #### [facility] [address] [place] [address] Dr. Brea Causey CO2 [Moles/Vol] 27.3 mmol/L Normal 21.0-32.0 [facility] Comment on above: Performed By: #### U CLINT, CMP, LIPID, DBIL, PHOS, MG #### [facility] [address] [place] [address] Dr. Brea Causey Creatinine [Mass/Vol] 1.00 mg/dL Normal 0.70-1.30 [facility] Comment on above: Performed By: #### U CLINT, CMP, LIPID, DBIL, PHOS, MG #### [facility] [address] [place] [address] Dr. Brea Causey EGFR-AF CITIZEN [place] >60 Normal >=60 [facility] Comment on above: Performed By: #### U CLINT, CMP, LIPID, DBIL, PHOS, MG #### [facility] [address] [place] [address] Dr. Brea Causey EGFR-NON AF CITIZEN OF [place] >60 Normal >=60 [facility] Comment on above: Performed By: #### U CLINT, CMP, LIPID, DBIL, PHOS, MG #### [facility] [address] [place] [address] Dr. Brea Causey Globulin (S) [Mass/Vol] 3.3 g/dL Normal [facility] Comment on above: Performed By: #### U CLINT, CMP, LIPID, DBIL, PHOS, MG #### [facility] [address] [place] [address] Dr. Brea Causey Glucose [Mass/Vol] 155 mg/dL Critically high 74-106 [facility] Comment on above: Performed By: #### U CLINT, CMP, LIPID, DBIL, PHOS, MG #### [facility] [address] [place] [address] Dr. Brea Causey Potassium [Moles/Vol] 4.3 mmol/L Normal 3.5-5.1 [facility] Comment on above: Performed By: #### U CLINT, CMP, LIPID, DBIL, PHOS, MG #### [facility] [address] [place] [address] Dr. Brea Causey Protein [Mass/Vol] 7.3 g/dL Normal 6.4-8.2 [facility] Comment on above: Performed By: #### U CLINT, CMP, LIPID, DBIL, PHOS, MG #### [facility] [address] [place] [address] Dr. Brea Causey Sodium [Moles/Vol] 135 mmol/L Critically low 136-145 Th [facility] Comment on above: Performed By: #### U CLINT, CMP, LIPID, DBIL, PHOS, MG #### [facility] [address] [place] [address] Dr. Brea Causey Urea nitrogen [Mass/Vol] 13.0 mg/dL Normal 7.0-18.0 [facility] Comment on above: Performed By: #### U CLINT, CMP, LIPID, DBIL, PHOS, MG #### [facility] [address] [place] [address] Dr. Brea Causey Urea nitrogen/Creatinine [Mass ratio] 13.0 mg/mg Normal [facility] Comment on above: Performed By: #### U CLINT, CMP, LIPID, DBIL, PHOS, MG #### [facility] [address] [place] [address] Dr. Brea aCusey URIC ACID SERUMon 03-08-2022 Urate [Mass/Vol] 7.3 mg/dL Critically high 3.5-7.2 [facility] Comment on above: Performed By: #### U CLINT, CMP, LIPID, DBIL, PHOS, MG #### [facility] [address] [place] [address] Dr. Brea Snyder 03-05-2022 L - -------- Specimen: [id number] Received: 03/05/22 Status: CHERI Fair Num: [id number] Spec Type: Surgical Subm Dr: Tj Wells MD Tissues: A Colon Biopsy (COLON BX) B Colon Biopsy (DIVERTICULAR COLITIS) Procedures: HE Stain/4, Gross/Micro L4/2 -------- Age/ Patient Sex Location Account Attending Physician -------- Roger Suarez/Naomi [id number] Tj Wells MD -------- SPEC NUM: [id number] RECD: 03/05/22 STATUS: CHERI FAIR NUM: [id number] ESTEFANI: 03/05/22 DR: Tj Wells MD ENTERED: [...] in one cassette labeled B1. -------- Specimen: [id number] Received: 03/05/22 Status: CHERI Irene Num: [id number] Spec Type: Surgical Subm Dr: Tj Wells MD Tissues: A Colon Biopsy (COLON BX) B Colon Biopsy (DIVERTICULAR COLITIS) Procedures: HE Stain/4, Gross/Micro L4/2 -------- Patient: Roger Suarez [id number] (Continued) -------- Specimen: [id number] Received: 03/05/22 (Continued) Signed (signature on file) Kalpana Shaw MD 03/07/22 1025 -------- Specimen: [id number] Received: 03/05/22 Status: CHERI Fair Num: [id number] Spec Type: Surgical Subm Dr: Tj Wells MD Tissues: A Colon Biopsy (COLON BX) B Colon Biopsy (DIVERTICULAR COLITIS) Procedures: HE Stain/4, Gross/Micro L4/2 -------- Patient: Roger Suarez [id number] (Continued) -------- Specimen: [id number] Received: 03/05/22 (Continued) Microscopic Description A. Two glass slides with H E stained material have been examined. The microscopic findings support the above pathologic diagnosis. B. Two glass slides with H E stained material have been examined. The microscopic findings support the above pathologic diagnosis. CPT Codes 91427?2 -------- -------- Specimen: [id number] Received: 03/05/22 Status: CHERI Fair Num: [id number] Spec Type: Surgical Subm Dr: Tj Wells MD Tissues: A Colon Biopsy (COLON BX) B Colon Biopsy (DIVERTICULAR COLITIS) Procedures: HE Stain/4, Gross/Micro L4/2 -------- Patient: Roger Suarez [id number] (Continued) -------- Signed (signature on file) Kalpana Shaw MD 03/07/22 1025 [facility] COVID-19 Antigenon 2 COVID-19 [...] developed and its performance characteristic determined by [facility] and validated at [facility]. This test has not been FDA [...] for SARS Antigen by ROCHELLE PERFORMED BY: [place] [address] PATHOLOGIST MASTER MACHINIST FEI WOODRUFF M.D. Normal [facility] Comment on above: Performed By: #### C OVID-19 MARQUISE, SOFIANEG #### [address] COVID-19 SOFIAOrdered By: Sheila Wells on 03-01-2022 SARS-CoV+SARS-CoV-2 (COVID-19) Ag IA.rapid Ql (Resp) Negative Negative [facility] Comment on above: This is a duplicate Marquise SARS Antigen (ROCHELLE) result to be used for statistical tracking purpose only. No Panel InformationOrdered By: Tj Wells on 03-01-2022 SARS Antigen (LFIA) [facility] Marquise Ag Negativeon 03-01-20 22 Marquise Ag Negative Negative Normal Negative [facility] Comment on above: Result Comment: This is a duplicate Marquise SARS Antigen (ROCHELLE) result to be used for statistical tracking purpose only. PERFORMED BY: [facility] [address] [place] [address] PATHOLOGIST MASTER MACHINIST FEI WOODRUFF M.D. Performed By: #### C OVID-19 MARQUISE, SOFIANEG #### [facility] [address] FK506 (TACROLIMUS) WHOLE BLO ODon 02-05-2022 Tacrolimus (FK506), Blood 5.4 ng/mL Normal 2.0-20.0 [facility] Comment on above: Result Comment: Trou gh (immediately following transplant) 15.0 . Trough (steady state, 2 weeks or more after transplant): 3.0 - 8.0 . Performed by LC-MS/MS technology. Performed By: #### U CLNIT, CMP, LIPID, DBIL, PHOS, MG #### [facility] [address] [place] [address] Dr. Brea Causey BILIRUBIN CONJUGATED (DIRECT )on 02-01-2022 BILI, CONJUGATED 0.1 mg/dL Normal 0.0-0.2 [facility] Comment on above: Performed By: #### C BC #### [facility] [address] [address] [address] Brea Causey CBC AUTO DIFFon 02-01-2022 BASO # 0.0 103/ul Normal 0.0-0.1 [facility] Comment on above: Performed By: #### B KVIRUS #### [facility] [address] [place] [address] Dr. Brea Causey Basophils/100 WBC (Bld) 0.6 % Normal 0.2-2.0 [facility] Comment on above: Performed By: #### B KVIRUS #### [facility] [address] [address] [address] Brea Causey EO # 0.2 103/ul Normal 0.0-0.7 [facility] Comment on above: Performed By: #### B KVIRUS #### [facility] [address] [address] [address] Brea Causey Eosinophils/100 WBC (Bld) 3.5 % Normal 0.9-7.0 [facility] Comment on above: Performed By: #### B KVIRUS #### [facility] [address] [place] [address] Dr. Brea Causey Erythrocyte distribution width (RBC) [Ratio] 13.0 % Normal 11.0-15.0 [facility] Comment on above: Performed By: #### B KVIRUS #### [facility] [address] [place] [address] Dr. Brea Causey Hematocrit (Bld) [Volume fraction] 36.9 % Critically low 42.0-54.0 [facility] Comment on above: Performed By: #### B KVIRUS #### [facility] [address] [place] [address] Dr. Brea Causey Hemoglobin (Bld) [Mass/Vol] 12.0 g/dL Critically low 14.0-18.0 [facility] Comment on above: Performed By: #### B KVIRUS #### [facility] [address] [place] [address] Dr. Brea Causey IG # 0.07 10e3/ul Critically high 0.00-0.03 [facility] Comment on above: Performed By: #### B KVIRUS #### [facility] [address] [place] [address] Dr. Brea Causey IG % 1.0 % Critically high 0.0-0.5 [facility] Comment on above: Performed By: #### B KVIRUS #### [facility] [address] [place] [address] Dr. Brea Causey LYMPH # 1.0 103/ul Critically low 1.2-3.8 [facility] Comment on above: Performed By: #### B KVIRUS #### [facility] [address] [place] [address] Dr. Brea Causey Lymphocytes/100 WBC (Bld) 14.2 % Critically low 20.5-60.0 [facility] Comment on above: Performed By: #### B KVIRUS #### [facility] [address] [place] [address] Dr. Brea Causey MANUAL DIFF REQ NO Normal [facility] Comment on above: Performed By: #### B KVIRUS #### [facility] [address] [place] [address] Dr. Brea Causey MCH (RBC) [Entitic mass] 29.1 pg Normal 25.9-34.0 [facility] Comment on above: Performed By: #### B KVIRUS #### [facility] [address] [place] [address] Dr. Brea Causey MCHC (RBC) [Mass/Vol] 32.5 g/dL Normal 29.9-35.2 [facility] Comment on above: Performed By: #### B KVIRUS #### [facility] [address] [place] [address] Dr. Brea Causey MCV (RBC) [Entitic vol] 89.6 fL Normal 80.0-94.0 [facility] Comment on above: Performed By: #### B KVIRUS #### [facility] [address] [place] [address] Dr. Brea Causey MONO # 0.7 103/ul Normal 0.3-0.8 [facility] Comment on above: Performed By: #### B KVIRUS #### [facility] [address] [place] [address] Dr. Brea Causey Monocytes/100 WBC (Bld) 9.9 % Normal 1.7-12.0 [facility] Comment on above: Performed By: #### B KVIRUS #### [facility] [address] [place] [address] Dr. Brea Causey NEUT # 4.9 103/ul Normal 1.4-6.5 [facility] Comment on above: Performed By: #### B KVIRUS #### [facility] [address] [address] [address] Brea Causey Neutrophils/100 WBC (Bld) 70.8 % Normal 43.0-75.0 [facility] Comment on above: Performed By: #### B KVIRUS #### [facility] [address] [address] [address] Brea Causey Platelet mean volume (Bld) [Entitic vol] 9.6 fL Normal 9.5-13.5 [facility] Comment on above: Performed By: #### B KVIRUS #### [facility] [address] [address] [address] Brea Causey PLT 247 103/ul Normal 150-450 [facility] Comment on above: Performed By: #### B KVIRUS #### [facility] [address] [place] [address] Dr. Brea Causey RBC 4.12 106/ul Critically low 4.70-6.10 [facility] Comment on above: Performed By: #### B KVIRUS #### [facility] [address] [place] [address] Dr. Brea Causey WBC 6.9 103/ul Normal 4.0-11.0 [facility] Comment on above: Performed By: #### B KVIRUS #### [facility] [address] [place] [address] Dr. Brea Causey LIPID PROFILEon 02-01-2022 CHOL-HDL RATIO NORM SEE BELOW Normal [facility] Comment on above: Result Comment: 3.3 - 4.4 LOW RISK 4.4 - 7.1 AVERAGE RISK 7.1 - 11.0 MODERATE RISK >11.0 HIGH RISK Performed By: #### C BC #### [facility] [address] [address] [address] Brea Causey Cholesterol [Mass/Vol] 77 mg/dL Normal <=200 [facility] Comment on above: Performed By: #### C BC #### [facility] [address] [place] [address] Dr. Brea Causey Cholesterol in HDL [Mass/Vol] 40 mg/dL Normal 40-60 [facility] Comment on above: Performed By: #### C BC #### [facility] [address] [address] [address] Brea Causey Cholesterol in LDL [Mass/Vol] 21.0 mg/dL Normal [facility] Comment on above: Performed By: #### C BC #### [facility] [address] [address] [address] Brea Causey Cholesterol.total/Cho lesterol in HDL [Mass ratio] 1.9 {ratio} Normal [facility] Comment on above: Performed By: #### C BC #### [facility] [address] [address] [address] Brea Causey HDL NORMAL > or = 60 mg/dl - LO W CARDIOVASCULAR RISK <40 mg/dl - HIGH CARDIOVASCULAR RISK Normal [facility] Comment on above: Performed By: #### C BC #### [facility] [address] [address] [address] Brea Causey LDL CALC NORMAL SEE BELOW Normal [facility] Comment on above: Result Comment: <100 mg/dl OPTIMAL 100 - 129 mg/dl NEAR OR ABOVE OPTIMAL 130 - 159 mg/dl BORDERLINE HIGH 160 - 189 mg/dl HIGH >190 mg/dl VERY HIGH Performed By: #### C BC #### [facility] [address] [address] [address] Brea Causey Triglyceride [Mass/Vol] 80 mg/dL Normal <=150 [facility] Comment on above: Performed By: #### C BC #### [facility] [address] [address] [address] Brea Causey VLDL CALC 16.0 mg/dL Normal [facility] Comment on above: Performed By: #### C BC #### [facility] [address] [address] [address] Brea Causey MAGNESIUMon 02-01-2022 Magnesium [Mass/Vol] 1.5 mg/dL Critically low 1.8-2.4 [facility] Comment on above: Performed By: #### C BC #### [facility] [address] [address] [address] Brea Causey PHOSPHORUSon 02-01-2022 Phosphate [Mass/Vol] 4.1 mg/dL Normal 2.6-4.7 [facility] Comment on above: Performed By: #### C BC #### [facility] [address] [place] [address] Dr. Brea Causey PROF 14(COMP METB)on 022 Albumin [Mass/Vol] 4.0 g/dL Normal 3.4-5.0 [facility] Comment on above: Performed By: #### C BC #### [facility] [address] [place] [address] Dr. Brea Causey Albumin/Globulin [Mass ratio] 1.3 {ratio} Normal [facility] Comment on above: Performed By: #### C BC #### [facility] [address] [place] [address] Dr. Brea Causey ALP [Catalytic activity/Vol] 162 U/L Critically high 46-116 [facility] Comment on above: Performed By: #### C BC #### [facility] [address] [place] [address] Dr. Brea Causey ALT [Catalytic activity/Vol] 25 U/L Normal 16-63 [facility] Comment on above: Performed By: #### C BC #### [facility] [address] [place] [address] Dr. Brea Causey Anion gap [Moles/Vol] 11.1 mmol/L Normal [facility] Comment on above: Performed By: #### C BC #### [facility] [address] [place] [address] Dr. Brea Causey AST [Catalytic activity/Vol] 16 U/L Normal 15-37 [facility] Comment on above: Performed By: #### C BC #### [facility] [address] [place] [address] Dr. Brea Causey Bilirubin [Mass/Vol] 0.4 mg/dL Normal 0.2-1.0 [facility] Comment on above: Performed By: #### C BC #### [facility] [address] [place] [address] Dr. Brea Causey Calcium [Mass/Vol] 8.2 mg/dL Critically low 8.5-10.1 [facility] Comment on above: Performed By: #### C BC #### [facility] [address] [place] [address] Dr. Brea Causey Chloride [Moles/Vol] 99 mmol/L Normal 98-107 [facility] Comment on above: Performed By: #### C BC #### [facility] [address] [place] [address] Dr. Brea Causey CO2 [Moles/Vol] 28.1 mmol/L Normal 21.0-32.0 [facility] Comment on above: Performed By: #### C BC #### [facility] [address] [place] [address] Dr. Brea Causey Creatinine [Mass/Vol] 1.13 mg/dL Normal 0.70-1.30 [facility] Comment on above: Performed By: #### C BC #### [facility] [address] [place] [address] Dr. Brea Causey EGFR-AF CITIZ[place] >60 Normal >=60 [facility] Comment on above: Performed By: #### C BC #### [facility] [address] [place] [address] Dr. Brea Causey EGFR-NON AF CITIZEN [place] >60 Normal >=60 [facility] Comment on above: Performed By: #### C BC #### [facility] [address] [place] [address] Dr. Brea Causey Globulin (S) [Mass/Vol] 3.1 g/dL Normal [facility] Comment on above: Performed By: #### C BC #### [facility] [address] [place] [address] Dr. Brea Causey Glucose [Mass/Vol] 177 mg/dL Critically high 74-106 [facility] Comment on above: Performed By: #### C BC #### [facility] [address] [place] [address] Dr. Brea Causey Potassium [Moles/Vol] 5.2 mmol/L Critically high 3.5-5.1 [facility] Comment on above: Performed By: #### C BC #### [facility] [address] [address] [address] Brea Causey Protein [Mass/Vol] 7.1 g/dL Normal 6.4-8.2 [facility] Comment on above: Performed By: #### C BC #### [facility] [address] [address] [address] Brea Causey Sodium [Moles/Vol] 133 mmol/L Critically low 136-145 Th [facility] Comment on above: Performed By: #### C BC #### [facility] [address] [address] [address] Brea Causey Urea nitrogen [Mass/Vol] 12.0 mg/dL Normal 7.0-18.0 [facility] Comment on above: Performed By: #### C BC #### [facility] [address] [address] [address] Brea Causey Urea nitrogen/Creatinine [Mass ratio] 10.6 mg/mg Normal [facility] Comment on above: Performed By: #### C BC #### [facility] [address] [address] [address] Brea Causey URIC ACID SERUMon 02-01-2022 Urate [Mass/Vol] 7.7 mg/dL Critically high 3.5-7.2 [facility] Comment on above: Performed By: #### C BC #### [facility] [address] [address] [address] Brea Causey FK506 (TACROLIMUS) WHOLE BLO ODon 01-06-2022 Tacrolimus (FK506), Blood 11.4 ng/mL Normal 2.0-20.0 [facility] Comment on above: Result Comment: Trou gh (immediately following transplant) 15.0 . Trough (steady state, 2 weeks or more after transplant): 3.0 - 8.0 . Performed by LC-MS/MS technology. Performed By: #### B KVIRUS #### [facility] [address] [address] [address] Brea Causey BILIRUBIN CONJUGATED (DIRECT )on 01-04-2022 BILI, CONJUGATED 0.1 mg/dL Normal 0.0-0.2 [facility] Comment on above: Performed By: #### U CLINT, CMP, LIPID, DBIL, PHOS, MG #### [facility] [address] [place] [address] Dr. Brea Causey BOX TEST SENT OUTon 01-05-20 SENT TO REF LAB 01/04/2022 Normal [facility] Comment on above: Performed By: #### U CLINT, CMP, LIPID, DBIL, PHOS, MG #### [facility] [address] [place] [address] Dr. Brea Causey CBC AUTO DIFFon 01-04-2022 BASO # 0.0 103/ul Normal 0.0-0.1 [facility] Comment on above: Performed By: #### U CLINT, CMP, LIPID, DBIL, PHOS, MG #### [facility] [address] [place] [address] Dr. Brea Causey Basophils/100 WBC (Bld) 0.5 % Normal 0.2-2.0 [facility] Comment on above: Performed By: #### U CLINT, CMP, LIPID, DBIL, PHOS, MG #### [facility] [address] [place] [address] Dr. Brea Causey EO # 0.3 103/ul Normal 0.0-0.7 [facility] Comment on above: Performed By: #### U CLINT, CMP, LIPID, DBIL, PHOS, MG #### [facility] [address] [place] [address] Dr. Brea Causey Eosinophils/100 WBC (Bld) 3.9 % Normal 0.9-7.0 [facility] Comment on above: Performed By: #### U CLINT, CMP, LIPID, DBIL, PHOS, MG #### [facility] [address] [place] [address] Dr. Brea Causey Erythrocyte distribution width (RBC) [Ratio] 13.1 % Normal 11.0-15.0 [facility] Comment on above: Performed By: #### U CLINT, CMP, LIPID, DBIL, PHOS, MG #### [facility] [address] [place] [address] Dr. Brea Causey Hematocrit (Bld) [Volume fraction] 37.4 % Critically low 42.0-54.0 [facility] Comment on above: Performed By: #### U CLINT, CMP, LIPID, DBIL, PHOS, MG #### [facility] [address] [place] [address] Dr. Brea Causey Hemoglobin (Bld) [Mass/Vol] 12.0 g/dL Critically low 14.0-18.0 [facility] Comment on above: Performed By: #### U CLINT, CMP, LIPID, DBIL, PHOS, MG #### [facility] [address] [place] [address] Dr. Brea Causey IG # 0.07 10e3/ul Critically high 0.00-0.03 [facility] Comment on above: Performed By: #### U CLINT, CMP, LIPID, DBIL, PHOS, MG #### [facility] [address] [place] [address] Dr. Brea Causey IG % 1.1 % Critically high 0.0-0.5 [facility] Comment on above: Performed By: #### U CLINT, CMP, LIPID, DBIL, PHOS, MG #### [facility] [address] [place] [address] Dr. Brea Causey LYMPH # 0.8 103/ul Critically low 1.2-3.8 [facility] Comment on above: Performed By: #### U CLINT, CMP, LIPID, DBIL, PHOS, MG #### [facility] [address] [place] [address] Dr. Brea Causey Lymphocytes/100 WBC (Bld) 12.2 % Critically low 20.5-60.0 [facility] Comment on above: Performed By: #### U CLINT, CMP, LIPID, DBIL, PHOS, MG #### [facility] [address] [place] [address] Dr. Brea Causey MANUAL DIFF REQ NO Normal [facility] Comment on above: Performed By: #### U CLINT, CMP, LIPID, DBIL, PHOS, MG #### [facility] [address] [place] [address] Dr. Brea Causey MCH (RBC) [Entitic mass] 29.1 pg Normal 25.9-34.0 [facility] Comment on above: Performed By: #### U CLINT, CMP, LIPID, DBIL, PHOS, MG #### [facility] [address] [place] [address] Dr. Brea Causey MCHC (RBC) [Mass/Vol] 32.1 g/dL Normal 29.9-35.2 [facility] Comment on above: Performed By: #### U CLINT, CMP, LIPID, DBIL, PHOS, MG #### [facility] [address] [place] [address] Dr. Brea Causey MCV (RBC) [Entitic vol] 90.6 fL Normal 80.0-94.0 [facility] Comment on above: Performed By: #### U CLINT, CMP, LIPID, DBIL, PHOS, MG #### [facility] [address] [place] [address] Dr. Brea Causey MONO # 0.5 103/ul Normal 0.3-0.8 [facility] Comment on above: Performed By: #### U CLINT, CMP, LIPID, DBIL, PHOS, MG #### [facility] [address] [place] [address] Dr. Brea Causey Monocytes/100 WBC (Bld) 8.0 % Normal 1.7-12.0 [facility] Comment on above: Performed By: #### U CLINT, CMP, LIPID, DBIL, PHOS, MG #### [facility] [address] [place] [address] Dr. Brea Causey NEUT # 5.0 103/ul Normal 1.4-6.5 [facility] Comment on above: Performed By: #### U CLINT, CMP, LIPID, DBIL, PHOS, MG #### [facility] [address] [place] [address] Dr. Brea Causey Neutrophils/100 WBC (Bld) 74.3 % Normal 43.0-75.0 [facility] Comment on above: Performed By: #### U CLINT, CMP, LIPID, DBIL, PHOS, MG #### [facility] [address] [address] [address] Brea Causey Platelet mean volume (Bld) [Entitic vol] 9.5 fL Normal 9.5-13.5 [facility] Comment on above: Performed By: #### U CLINT, CMP, LIPID, DBIL, PHOS, MG #### [facility] [address] [address] [address] Brea Causey PLT 243 103/ul Normal 150-450 [facility] Comment on above: Performed By: #### U CLINT, CMP, LIPID, DBIL, PHOS, MG #### [facility] [address] [place] [address] Dr. Brea Causey RBC 4.13 106/ul Critically low 4.70-6.10 [facility] Comment on above: Performed By: #### U CLINT, CMP, LIPID, DBIL, PHOS, MG #### [facility] [address] [address] [address] Brea Causey WBC 6.7 103/ul Normal 4.0-11.0 [facility] Comment on above: Performed By: #### U CLINT, CMP, LIPID, DBIL, PHOS, MG #### [facility] [address] [place] [address] Dr. Brea Causey LIPID PROFILEon 01-04-2022 CHOL-HDL RATIO NORM SEE BELOW Normal [facility] Comment on above: Result Comment: 3.3 - 4.4 LOW RISK 4.4 - 7.1 AVERAGE RISK 7.1 - 11.0 MODERATE RISK >11.0 HIGH RISK Performed By: #### U CLINT, CMP, LIPID, DBIL, PHOS, MG #### [facility] [address] [place] [address] Dr. Brea Causey Cholesterol [Mass/Vol] 81 mg/dL Normal <=200 [facility] Comment on above: Performed By: #### U CLINT, CMP, LIPID, DBIL, PHOS, MG #### [facility] [address] [address] [address] Brea Causey Cholesterol in HDL [Mass/Vol] 43 mg/dL Normal 40-60 [facility] Comment on above: Performed By: #### U CLINT, CMP, LIPID, DBIL, PHOS, MG #### [facility] [address] [address] [address] Brea Causey Cholesterol in LDL [Mass/Vol] 26.0 mg/dL Normal [facility] Comment on above: Performed By: #### U CLINT, CMP, LIPID, DBIL, PHOS, MG #### [facility] [address] [address] [address] Brea Causey Cholesterol.total/Cho lesterol in HDL [Mass ratio] 1.9 {ratio} Normal [facility] Comment on above: Performed By: #### U CLINT, CMP, LIPID, DBIL, PHOS, MG #### [facility] [address] [address] [address] Brea Causey HDL NORMAL > or = 60 mg/dl - LO W CARDIOVASCULAR RISK <40 mg/dl - HIGH CARDIOVASCULAR RISK Normal [facility] Comment on above: Performed By: #### U CLINT, CMP, LIPID, DBIL, PHOS, MG #### [facility] [address] [address] [address] Brea Causey LDL CALC NORMAL SEE BELOW Normal [facility] Comment on above: Result Comment: <100 mg/dl OPTIMAL 100 - 129 mg/dl NEAR OR ABOVE OPTIMAL 130 - 159 mg/dl BORDERLINE HIGH 160 - 189 mg/dl HIGH >190 mg/dl VERY HIGH Performed By: #### U CLINT, CMP, LIPID, DBIL, PHOS, MG #### [facility] [address] [address] [address] Brea Causey Triglyceride [Mass/Vol] 60 mg/dL Normal <=150 [facility] Comment on above: Performed By: #### U CLINT, CMP, LIPID, DBIL, PHOS, MG #### [facility] [address] [address] [address] Brea Causey VLDL CALC 12.0 mg/dL Normal [facility] Comment on above: Performed By: #### U CLINT, CMP, LIPID, DBIL, PHOS, MG #### [facility] [address] [place] [address] Dr. Brea Causey MAGNESIUMon 01-04-2022 Magnesium [Mass/Vol] 1.4 mg/dL Critically low 1.8-2.4 [facility] Comment on above: Performed By: #### U CLINT, CMP, LIPID, DBIL, PHOS, MG #### [facility] [address] [place] [address] Dr. Brea Causey PHOSPHORUSon 01-04-2022 Phosphate [Mass/Vol] 4.4 mg/dL Normal 2.6-4.7 [facility] Comment on above: Performed By: #### U CLINT, CMP, LIPID, DBIL, PHOS, MG #### [facility] [address] [place] [address] Dr. Brea Causey PROF 14(COMP METB)on 022 Albumin [Mass/Vol] 3.9 g/dL Normal 3.4-5.0 [facility] Comment on above: Performed By: #### U CLINT, CMP, LIPID, DBIL, PHOS, MG #### [facility] [address] [place] [address] Dr. Bera Causey Albumin/Globulin [Mass ratio] 1.2 {ratio} Normal [facility] Comment on above: Performed By: #### U CLINT, CMP, LIPID, DBIL, PHOS, MG #### [facility] [address] [place] [address] Dr. Brea Causey ALP [Catalytic activity/Vol] 155 U/L Critically high 46-116 [facility] Comment on above: Performed By: #### U CLINT, CMP, LIPID, DBIL, PHOS, MG #### [facility] [address] [place] [address] Dr. Brea Causey ALT [Catalytic activity/Vol] 27 U/L Normal 16-63 [facility] Comment on above: Performed By: #### U CLINT, CMP, LIPID, DBIL, PHOS, MG #### [facility] [address] [place] [address] Dr. Brea Causey Anion gap [Moles/Vol] 14.6 mmol/L Normal [facility] [facility] Comment on above: Performed By: #### U CLINT, CMP, LIPID, DBIL, PHOS, MG #### [facility] [address] [place] [address] Dr. Brea Causey AST [Catalytic activity/Vol] 17 U/L Normal 15-37 [facility] Comment on above: Performed By: #### U CLINT, CMP, LIPID, DBIL, PHOS, MG #### [facility] [address] [place] [address] Dr. Brea Causey Bilirubin [Mass/Vol] 0.3 mg/dL Normal 0.2-1.0 [facility] Comment on above: Performed By: #### U CLINT, CMP, LIPID, DBIL, PHOS, MG #### [facility] [address] [place] [address] Dr. Brea Causey Calcium [Mass/Vol] 8.1 mg/dL Critically low 8.5-10.[address] [facility] Comment on above: Performed By: #### U CLINT, CMP, LIPID, DBIL, PHOS, MG #### [facility] [address] [place] [address] Dr. Brea Causey Chloride [Moles/Vol] 99 mmol/L Normal 98-107 [facility] Comment on above: Performed By: #### U CLINT, CMP, LIPID, DBIL, PHOS, MG #### [facility] [address] [place] [address] Dr. Brea Causey CO2 [Moles/Vol] 25.0 mmol/L Normal 21.0-32.0 [facility] Comment on above: Performed By: #### U CLINT, CMP, LIPID, DBIL, PHOS, MG #### [facility] [address] [place] [address] Dr. Brea Causey Creatinine [Mass/Vol] 1.05 mg/dL Normal 0.70-1.30 [facility] Comment on above: Performed By: #### U CLINT, CMP, LIPID, DBIL, PHOS, MG #### [facility] [address] [address] [address] Brea Causey EGFR-AF CITIZEN OF [place] >60 Normal >=60 [facility] Comment on above: Performed By: #### U CLINT, CMP, LIPID, DBIL, PHOS, MG #### [facility] [address] [place] [address] Dr. Brea Causey EGFR-NON AF CITIZEN OF [place] >60 Normal >=60 [facility] Comment on above: Performed By: #### U CLINT, CMP, LIPID, DBIL, PHOS, MG #### [facility] [address] [place] [address] Dr. Brea Causey Globulin (S) [Mass/Vol] 3.2 g/dL Normal [facility] Comment on above: Performed By: #### U CLINT, CMP, LIPID, DBIL, PHOS, MG #### [facility] [address] [place] [address] Dr. Brea Causey Glucose [Mass/Vol] 177 mg/dL Critically high 74-106 [facility] Comment on above: Performed By: #### U CLINT, CMP, LIPID, DBIL, PHOS, MG #### [facility] [address] [place] [address] Dr. Brea Causey Potassium [Moles/Vol] 4.6 mmol/L Normal 3.5-5.1 [facility] Comment on above: Performed By: #### U CLINT, CMP, LIPID, DBIL, PHOS, MG #### [facility] [address] [place] [address] Dr. Brea Causey Protein [Mass/Vol] 7.1 g/dL Normal 6.4-8.2 [facility] Comment on above: Performed By: #### U CLINT, CMP, LIPID, DBIL, PHOS, MG #### [facility] [address] [place] [address] Dr. Brea Causey Sodium [Moles/Vol] 134 mmol/L Critically low 136-[address] [facility] Comment on above: Performed By: #### U CLINT, CMP, LIPID, DBIL, PHOS, MG #### [facility] [address] [place] [address] Dr. Brea Cuasey Urea nitrogen [Mass/Vol] 14.0 mg/dL Normal 7.0-18.0 [facility] Comment on above: Performed By: #### U CLINT, CMP, LIPID, DBIL, PHOS, MG #### [facility] [address] [place] [address] Dr. Brea Causey Urea nitrogen/Creatinine [Mass ratio] 13.3 mg/mg Normal [facility] Comment on above: Performed By: #### U CLINT, CMP, LIPID, DBIL, PHOS, MG #### [facility] [address] [place] [address] Dr. Brea Causey URIC ACID SERUMon 01-04-2022 Urate [Mass/Vol] 7.6 mg/dL Critically high 3.5-7.2 [facility] Comment on above: Performed By: #### U CLINT, CMP, LIPID, DBIL, PHOS, MG #### [facility] [address] [place] [address] Dr. Brea Causey BK VIRUS PCR QUANTon 022 BKV DNA QUANT PCR PLASMA Negative Normal Negative [facility] Comment on above: Result Comment: No B K DNA detected. . The linear range of the assay is 22 - 100,000,000 IU/mL. Performed By: #### B KVIRUS #### [facility] [address] [place] [address] Dr. Brea Causey Log10 BKV DNA Plasma Normal [facility] Comment on above: Performed By: #### B KVIRUS #### [facility] [address] [place] [address] Dr. Brea Causey FK506 (TACROLIMUS) WHOLE BLO ODon 12-03-2021 Tacrolimus (FK506), Blood 5.6 ng/mL Normal 2.0-20.0 [facility] Comment on above: Result Comment: Trou gh (immediately following transplant) 15.0 . Trough (steady state, 2 weeks or more after transplant): 3.0 - 8.0 . Performed by LC-MS/MS technology. Performed By: #### U CLINT, CMP, LIPID, DBIL, PHOS, MG #### [facility] [address] [place] [address] Dr. Brea Causey TESTOSTERONE, FREE,DIRECT, T OTALon 12-03-2021 Free Testosterone(Direct) 7.5 pg/mL Normal 6.6-18.1 [facility] Comment on above: Result Comment: Perf ormed at: BN Performed By: #### U CLINT, CMP, LIPID, DBIL, PHOS, MG #### [facility] [address] [place] [address] Dr. Brea Causey Testosterone [Mass/Vol] 467 ng/dL Normal 264-916 [facility] Comment on above: Result Comment: Adul t male reference interval is based on a population of healthy nonobese males (BMI <30) between 19 and 39 years old. daniel Harris.al. JCEM 2017,102;[id number]. PMID: [id number]. Performed at: CB Performed By: #### U CLINT, CMP, LIPID, DBIL, PHOS, MG #### [facility] [address] [place] [address] Dr. Brea Causey BILIRUBIN CONJUGATED (DIRECT )on 11-30-2021 BILI, CONJUGATED 0.2 mg/dL Normal 0.0-0.2 [facility] Comment on above: Performed By: #### B KVIRUS #### [facility] [address] [place] [address] Dr. Brea Causey CBC AUTO DIFFon 11-30-2021 BASO # 0.0 103/ul Normal 0.0-0.1 [facility] Comment on above: Performed By: #### U CLINT, CMP, LIPID, DBIL, PHOS, MG #### [facility] [address] [place] [address] Dr. Brea Causey Basophils/100 WBC (Bld) 0.6 % Normal 0.2-2.0 [facility] Comment on above: Performed By: #### U CLINT, CMP, LIPID, DBIL, PHOS, MG #### [facility] [address] [place] [address] Dr. Brea Causey EO # 0.2 103/ul Normal 0.0-0.7 [facility] Comment on above: Performed By: #### U CLINT, CMP, LIPID, DBIL, PHOS, MG #### [facility] [address] [place] [address] Dr. Brea Causey Eosinophils/100 WBC (Bld) 2.7 % Normal 0.9-7.0 [facility] Comment on above: Performed By: #### U CLINT, CMP, LIPID, DBIL, PHOS, MG #### [facility] [address] [place] [address] Dr. Brea Causey Erythrocyte distribution width (RBC) [Ratio] 13.0 % Normal 11.0-15.0 [facility] Comment on above: Performed By: #### U CLINT, CMP, LIPID, DBIL, PHOS, MG #### [facility] [address] [place] [address] Dr. Brea Causey Hematocrit (Bld) [Volume fraction] 37.6 % Critically low 42.0-54.0 [facility] Comment on above: Performed By: #### U CLINT, CMP, LIPID, DBIL, PHOS, MG #### [facility] [address] [place] [address] Dr. Brea Causey Hemoglobin (Bld) [Mass/Vol] 12.4 g/dL Critically low 14.0-18.0 [facility] Comment on above: Performed By: #### U CLINT, CMP, LIPID, DBIL, PHOS, MG #### [facility] [address] [place] [address] Dr. Brea Causey IG # 0.06 10e3/ul Critically high 0.00-0.03 [facility] Comment on above: Performed By: #### U CLINT, CMP, LIPID, DBIL, PHOS, MG #### [facility] [address] [place] [address] Dr. Brea Causey IG % 0.9 % Critically high 0.0-0.5 [facility] Comment on above: Performed By: #### U CLINT, CMP, LIPID, DBIL, PHOS, MG #### [facility] [address] [address] [address] Brea Causey LYMPH # 1.0 103/ul Critically low 1.2-3.8 [facility] Comment on above: Performed By: #### U CLINT, CMP, LIPID, DBIL, PHOS, MG #### [facility] [address] [place] [address] Dr. Brea Causey Lymphocytes/100 WBC (Bld) 14.6 % Critically low 20.5-60.0 [facility] Comment on above: Performed By: #### U CLINT, CMP, LIPID, DBIL, PHOS, MG #### [facility] [address] [address] [address] Brea Causey MANUAL DIFF REQ NO Normal [facility] Comment on above: Performed By: #### U CLINT, CMP, LIPID, DBIL, PHOS, MG #### [facility] [address] [place] [address] Dr. Brea Causey MCH (RBC) [Entitic mass] 29.4 pg Normal 25.9-34.0 [facility] Comment on above: Performed By: #### U CLINT, CMP, LIPID, DBIL, PHOS, MG #### [facility] [address] [place] [address] Dr. Brea Causey MCHC (RBC) [Mass/Vol] 33.0 g/dL Normal 29.9-35.2 [facility] Comment on above: Performed By: #### U CLINT, CMP, LIPID, DBIL, PHOS, MG #### [facility] [address] [place] [address] Dr. Brea Causey MCV (RBC) [Entitic vol] 89.1 fL Normal 80.0-94.0 [facility] Comment on above: Performed By: #### U CLINT, CMP, LIPID, DBIL, PHOS, MG #### [facility] [address] [place] [address] Dr. Brea Causey MONO # 0.7 103/ul Normal 0.3-0.8 [facility] Comment on above: Performed By: #### U CLINT, CMP, LIPID, DBIL, PHOS, MG #### [facility] [address] [address] [address] Brea Causey Monocytes/100 WBC (Bld) 10.0 % Normal 1.7-12.0 [facility] Comment on above: Performed By: #### U CLINT, CMP, LIPID, DBIL, PHOS, MG #### [facility] [address] [address] [address] Brea Causey NEUT # 4.8 103/ul Normal 1.4-6.5 [facility] Comment on above: Performed By: #### U CLINT, CMP, LIPID, DBIL, PHOS, MG #### [facility] [address] [place] [address] Dr. Brea Causey Neutrophils/100 WBC (Bld) 71.2 % Normal 43.0-75.0 [facility] Comment on above: Performed By: #### U CLINT, CMP, LIPID, DBIL, PHOS, MG #### [facility] [address] [place] [address] Dr. Brea Causey Platelet mean volume (Bld) [Entitic vol] 9.0 fL Critically low 9.5-13.5 [facility] Comment on above: Performed By: #### U CLINT, CMP, LIPID, DBIL, PHOS, MG #### [facility] [address] [place] [address] Dr. Brea Causey PLT 280 103/ul Normal 150-450 [facility] Comment on above: Performed By: #### U CLINT, CMP, LIPID, DBIL, PHOS, MG #### [facility] [address] [place] [address] Dr. Brea Causey RBC 4.22 106/ul Critically low 4.70-6.10 [facility] Comment on above: Performed By: #### U CLINT, CMP, LIPID, DBIL, PHOS, MG #### [facility] [address] [place] [address] Dr. Brea Causey WBC 6.7 103/ul Normal 4.0-11.0 [facility] Comment on above: Performed By: #### U CLINT, CMP, LIPID, DBIL, PHOS, MG #### [facility] [address] [address] [address] Brea Causey GLYCOHEMOGLOBIN A1Con 2021 ADA RECOMMENDATION SEE BELOW Normal [facility] Comment on above: Result Comment: ADA RECOMMENDED LIMIT 4.0 - 6.0 ADA THERAPEUTIC TARGET < 7.0 ACTION SUGGESTED > 7.0 Performed By: #### B KVIRUS #### [facility] [address] [address] [address] Brea Causey Glucose [Mass/Vol] 171 mg/dL Normal [facility] Comment on above: Performed By: #### B KVIRUS #### [facility] [address] [place] [address] Dr. Brea Causey HbA1c (Bld) [Mass fraction] 7.6 % Critically high 4.5-6.2 [facility] Comment on above: Performed By: #### B KVIRUS #### [facility] [address] [place] [address] Dr. Brea Causey LIPID PROFILEon 11-30-2021 CHOL-HDL RATIO NORM SEE BELOW Normal [facility] Comment on above: Result Comment: 3.3 - 4.4 LOW RISK 4.4 - 7.1 AVERAGE RISK 7.1 - 11.0 MODERATE RISK >11.0 HIGH RISK Performed By: #### C BC #### [facility] [address] [place] [address] Dr. Brea Causey Cholesterol [Mass/Vol] 75 mg/dL Normal <=200 [facility] Comment on above: Performed By: #### C BC #### [facility] [address] [place] [address] Dr. Brea Causey Cholesterol in HDL [Mass/Vol] 41 mg/dL Normal 40-60 [facility] Comment on above: Performed By: #### C BC #### [facility] [address] [address] [address] Brea Causey Cholesterol in LDL [Mass/Vol] 18.6 mg/dL Normal [facility] Comment on above: Performed By: #### C BC #### [facility] [address] [address] [address] Brea Causey Cholesterol.total/Cho lesterol in HDL [Mass ratio] 1.8 {ratio} Normal [facility] Comment on above: Performed By: #### C BC #### [facility] [address] [address] [address] Brea Causey HDL NORMAL > or = 60 mg/dl - LO W CARDIOVASCULAR RISK <40 mg/dl - HIGH CARDIOVASCULAR RISK Normal [facility] Comment on above: Performed By: #### C BC #### [facility] [address] [address] [address] Brea Causey LDL CALC NORMAL SEE BELOW Normal [facility] Comment on above: Result Comment: <100 mg/dl OPTIMAL 100 - 129 mg/dl NEAR OR ABOVE OPTIMAL 130 - 159 mg/dl BORDERLINE HIGH 160 - 189 mg/dl HIGH >190 mg/dl VERY HIGH Performed By: #### C BC #### [facility] [address] [place] [address] Dr. Brea Causey Triglyceride [Mass/Vol] 77 mg/dL Normal <=150 [facility] Comment on above: Performed By: #### C BC #### [facility] [address] [address] [address] Brea Causey VLDL CALC 15.4 mg/dL Normal [facility] Comment on above: Performed By: #### C BC #### [facility] [address] [place] [address] Dr. Brea Causey MAGNESIUMon 11-30-2021 Magnesium [Mass/Vol] 1.4 mg/dL Critically low 1.8-2.4 [facility] Comment on above: Performed By: #### B KVIRUS #### [facility] [address] [place] [address] Dr. Brea Causey PHOSPHORUSon 11-30-2021 Phosphate [Mass/Vol] 4.1 mg/dL Normal 2.6-4.7 [facility] Comment on above: Performed By: #### C BC #### [facility] [address] [place] [address] Dr. Brea Causey PROF 14(COMP METB)on 022 Albumin [Mass/Vol] 4.2 g/dL Normal 3.4-5.0 [facility] Comment on above: Performed By: #### C BC #### [facility] [address] [place] [address] Dr. Brea Causey Albumin/Globulin [Mass ratio] 1.3 {ratio} Normal [facility] Comment on above: Performed By: #### C BC #### [facility] [address] [place] [address] Dr. Brea Causey ALP [Catalytic activity/Vol] 148 U/L Critically high 46-116 [facility] Comment on above: Performed By: #### C BC #### [facility] [address] [place] [address] Dr. Brea Causey ALT [Catalytic activity/Vol] 36 U/L Normal 16-63 [facility] Comment on above: Performed By: #### C BC #### [facility] [address] [place] [address] Dr. Brea Causey Anion gap [Moles/Vol] 14.7 mmol/L Normal [facility] Comment on above: Performed By: #### C BC #### [facility] [address] [place] [address] Dr. Brea Causey AST [Catalytic activity/Vol] 21 U/L Normal 15-37 [facility] Comment on above: Performed By: #### C BC #### [facility] [address] [place] [address] Dr. Brea Causey Bilirubin [Mass/Vol] 0.4 mg/dL Normal 0.2-1.0 [facility] Comment on above: Performed By: #### C BC #### [facility] [address] [place] [address] Dr. Brea Causey Calcium [Mass/Vol] 8.3 mg/dL Critically low 8.5-10.[address] [facility] Comment on above: Performed By: #### C BC #### [facility] [address] [place] [address] Dr. Brea Causey Chloride [Moles/Vol] 98 mmol/L Normal 98-107 [facility] Comment on above: Performed By: #### C BC #### [facility] [address] [place] [address] Dr. Brea Causey CO2 [Moles/Vol] 27.2 mmol/L Normal 21.0-32.0 [facility] Comment on above: Performed By: #### C BC #### [facility] [address] [address] [address] Brea Causey Creatinine [Mass/Vol] 1.10 mg/dL Normal 0.70-1.30 [facility] Comment on above: Performed By: #### C BC #### [facility] [address] [place] [address] Dr. Brea Causey EGFR-AF [place]IZ[place] >60 Normal >=60 [facility] Comment on above: Performed By: #### C BC #### [facility] [address] [place] [address] Dr. Brea Causey EGFR-NON AF CITIZEN [place] >60 Normal >=60 [facility] Comment on above: Performed By: #### C BC #### [facility] [address] [address] [address] Brea Causey Globulin (S) [Mass/Vol] 3.2 g/dL Normal [facility] Comment on above: Performed By: #### C BC #### [facility] [address] [place] [address] Dr. Brea Causey Glucose [Mass/Vol] 173 mg/dL Critically high 74-106 [facility] Comment on above: Performed By: #### C BC #### [facility] [address] [place] [address] Dr. Brea Causey Potassium [Moles/Vol] 4.9 mmol/L Normal 3.5-5.1 [facility] Comment on above: Performed By: #### C BC #### [facility] [address] [place] [address] Dr. Brea Causey Protein [Mass/Vol] 7.4 g/dL Normal 6.4-8.2 [facility] Comment on above: Performed By: #### C BC #### [facility] [address] [place] [address] Dr. rBea Causey Sodium [Moles/Vol] 135 mmol/L Critically low 136-145 [facility] Comment on above: Performed By: #### C BC #### [facility] [address] [place] [address] Dr. Brea Causey Urea nitrogen [Mass/Vol] 14.0 mg/dL Normal 7.0-18.0 [facility] Comment on above: Performed By: #### C BC #### [facility] [address] [place] [address] Dr. Brea Causey Urea nitrogen/Creatinine [Mass ratio] 12.7 mg/mg Normal [facility] Comment on above: Performed By: #### C BC #### [facility] [address] [place] [address] Dr. Brea Causey URIC ACID SERUMon 11-30-2021 Urate [Mass/Vol] 7.8 mg/dL Critically high 3.5-7.2 [facility] Comment on above: Performed By: #### C BC #### [facility] [address] [place] [address] Dr. Brea Causey BNPon 11-14-2021 Natriuretic peptide B (Bld) [Mass/Vol] 350.0 pg/mL Normal <=900.0 [facility] Comment on above: Performed By: #### C BC #### [facility] [address] [place] [address] Dr. Brea Causey CBC AUTO DIFFon 11-14-2021 BASO # 0.0 103/ul Normal 0.0-0.1 [facility] Comment on above: Performed By: #### C BC #### [facility] [address] [place] [address] Dr. Brea Causey Basophils/100 WBC (Bld) 0.1 % Critically low 0.2-2.0 [facility] Comment on above: Performed By: #### C BC #### [facility] [address] [place] [address] Dr. Brea Causey EO # 0.2 103/ul Normal 0.0-0.7 [facility] Comment on above: Performed By: #### C BC #### [facility] [address] [place] [address] Dr. Brea Causey Eosinophils/100 WBC (Bld) 1.4 % Normal 0.9-7.0 [facility] Comment on above: Performed By: #### C BC #### [facility] [address] [place] [address] Dr. Brea Causey Erythrocyte distribution width (RBC) [Ratio] 13.1 % Normal 11.0-15.0 [facility] Comment on above: Performed By: #### C BC #### [facility] [address] [place] [address] Dr. Brea Causey Hematocrit (Bld) [Volume fraction] 39.4 % Critically low 42.0-54.0 [facility] Comment on above: Performed By: #### C BC #### [facility] [address] [place] [address] Dr. Brea Causey Hemoglobin (Bld) [Mass/Vol] 13.2 g/dL Critically low 14.0-18.0 [facility] Comment on above: Performed By: #### C BC #### [facility] [address] [place] [address] Dr. Brea Causey IG # 0.11 10e3/ul Critically high 0.00-0.03 [facility] Comment on above: Performed By: #### C BC #### [facility] [address] [place] [address] Dr. Brea Causey IG % 0.6 % Critically high 0.0-0.5 [facility] Comment on above: Performed By: #### C BC #### [facility] [address] [place] [address] Dr. Brea Causey LYMPH # 1.1 103/ul Critically low 1.2-3.8 [facility] Comment on above: Performed By: #### C BC #### [facility] [address] [place] [address] Dr. Brea Causey Lymphocytes/100 WBC (Bld) 6.7 % Critically low 20.5-60.0 [facility] Comment on above: Performed By: #### C BC #### [facility] [address] [place] [address] Dr. Brea Causey MANUAL DIFF REQ NO Normal [facility] Comment on above: Performed By: #### C BC #### [facility] [address] [place] [address] Dr. Brea Causey MCH (RBC) [Entitic mass] 29.5 pg Normal 25.9-34.0 [facility] Comment on above: Performed By: #### C BC #### [facility] [address] [place] [address] Dr. Brea Causey MCHC (RBC) [Mass/Vol] 33.5 g/dL Normal 29.9-35.2 [facility] Comment on above: Performed By: #### C BC #### [facility] [address] [place] [address] Dr. Brea Causey MCV (RBC) [Entitic vol] 88.1 fL Normal 80.0-94.0 [facility] Comment on above: Performed By: #### C BC #### [facility] [address] [place] [address] Dr. Brea Causey MONO # 1.5 103/ul Critically high 0.3-0.8 [facility] Comment on above: Performed By: #### C BC #### [facility] [address] [place] [address] Dr. Brea Causey Monocytes/100 WBC (Bld) 8.6 % Normal 1.7-12.0 [facility] Comment on above: Performed By: #### C BC #### [facility] [address] [place] [address] Dr. Brea Causey NEUT # 14.0 103/ul Critically high 1.4-6.5 [facility] Comment on above: Performed By: #### C BC #### [facility] [address] [place] [address] Dr. Brea Causey Neutrophils/100 WBC (Bld) 82.6 % Critically high 43.0-75.0 [facility] Comment on above: Performed By: #### C BC #### [facility] [address] [address] [address] Brea Causey Platelet mean volume (Bld) [Entitic vol] 9.5 fL Normal 9.5-13.5 [facility] Comment on above: Performed By: #### C BC #### [facility] [address] [place] [address] Dr. Brea Causey PLT 303 103/ul Normal 150-450 [facility] Comment on above: Performed By: #### C BC #### [facility] [address] [address] [address] Brea Causey RBC 4.47 106/ul Critically low 4.70-6.10 [facility] Comment on above: Performed By: #### C BC #### [facility] [address] [place] [address] Dr. Brea Causey WBC 17.0 103/ul Critically high 4.0-11.0 [facility] Comment on above: Performed By: #### C BC #### [facility] [address] [place] [address] Dr. Brea Causey Covid-19 PCR ([facility])on SARS-CoV-2 (COVID-19) RNA ISI+probe Ql (Unsp spec) Not detected Normal NOT DETECTED [facility] Comment on above: Result Comment: When [...] for this test is supported by the [place] of Health and Human Service's declaration that [...] CLINT, CMP, LIPID, DBIL, PHOS, MG #### [facility] [address] [address] [address] Brea Causey ER URINE PROFILEon 2 Bilirubin Ql (U) Negative Normal NEGATIVE The [facility] Comment on above: Performed By: #### U CLINT, CMP, LIPID, DBIL, PHOS, MG #### [facility] [address] [address] [address] Brea Causey Clarity (U) CLEAR Normal CLEAR [facility] Comment on above: Performed By: #### U CLINT, CMP, LIPID, DBIL, PHOS, MG #### [facility] [address] [address] [address] Brea Causey Color (U) YELLOW Normal YELLOW [facility] Comment on above: Performed By: #### U CLINT, CMP, LIPID, DBIL, PHOS, MG #### [facility] [address] [address] [address] Brea GORDON A micrscopic examination will be performed if indicated. Normal [facility] Comment on above: Performed By: #### U CLINT, CMP, LIPID, DBIL, PHOS, MG #### [facility] [address] [address] [address] Brea Causey Glucose Ql (U) Negative Normal NEGATIVE The [facility] Comment on above: Performed By: #### U CLINT, CMP, LIPID, DBIL, PHOS, MG #### [facility] [address] [address] [address] Brea Causey Hemoglobin Ql (U) Negative Normal NEGATIVE [facility] Comment on above: Performed By: #### U CLINT, CMP, LIPID, DBIL, PHOS, MG #### [facility] [address] [address] [address] Brea Causey Ketones Ql (U) Negative Normal NEGATIVE [facility] Comment on above: Performed By: #### U CLINT, CMP, LIPID, DBIL, PHOS, MG #### [facility] [address] [address] [address] Brea Causey LEUKOCYTES Negative Normal NEGATIVE [facility] Comment on above: Performed By: #### U CLINT, CMP, LIPID, DBIL, PHOS, MG #### [facility] [address] [address] [address] Brea Causey Nitrite Ql (U) Negative Normal NEGATIVE The [facility] Comment on above: Performed By: #### U CLINT, CMP, LIPID, DBIL, PHOS, MG #### [facility] [address] [address] [address] Brea Causey pH (U) 6.0 [pH] Normal 5-9 [facility] Comment on above: Performed By: #### U CLINT, CMP, LIPID, DBIL, PHOS, MG #### [facility] [address] [place] [address] Dr. Brea Causey SPEC GRAVITY <=1.005 Abnormal 1.005-<=1.025 [facility] Comment on above: Performed By: #### U CILNT, CMP, LIPID, DBIL, PHOS, MG #### [facility] [address] [place] [address] Dr. Brea Causey UA PROTEIN Negative Normal NEGATIVE/ TRACE [facility] Comment on above: Performed By: #### U CLINT, CMP, LIPID, DBIL, PHOS, MG #### [facility] [address] [address] [address] Brea Causey UR MICRO IND NOT INDICATED Normal The [facility] Comment on above: Performed By: #### U CLINT, CMP, LIPID, DBIL, PHOS, MG #### [facility] [address] [place] [address] Dr. Brea Causey Urobilinogen Qn (U) 0.2 {Sabine'U}/dL Normal 0.2 - 1. 0 [facility] Comment on above: Performed By: #### U CLINT, CMP, LIPID, DBIL, PHOS, MG #### [facility] [address] [address] [address] Brea Causey GI PANEL (PCR)on 11-14-2021 Adenovirus F 40/41 Not detected Normal NOT DETECTED [facility] Comment on above: Performed By: #### U CLINT, CMP, LIPID, DBIL, PHOS, MG #### [facility] [address] [address] [address] Brea Causey Astrovirus Not detected Normal NOT DETECTED The [facility] Comment on above: Performed By: #### U CLINT, CMP, LIPID, DBIL, PHOS, MG #### [facility] [address] [address] [address] Brea Causey C. Diff toxin A/B Not detected Normal NOT DETECTED [facility] Comment on above: Performed By: #### U CLINT, CMP, LIPID, DBIL, PHOS, MG #### [facility] [address] [address] [address] Brea Causey Campylobacter Not detected Normal NOT DETECTED The [facility] Comment on above: Performed By: #### U CLINT, CMP, LIPID, DBIL, PHOS, MG #### [facility] [address] [address] [address] Brea Causey Cryptosporidium Not detected Normal NOT DETECTED The [facility] Comment on above: Performed By: #### U CLINT, CMP, LIPID, DBIL, PHOS, MG #### [facility] [address] [address] [address] Brea Causey Cyclos. Cayetanensis Not detected Normal NOT DETECTED [facility] Comment on above: Performed By: #### U CLINT, CMP, LIPID, DBIL, PHOS, MG #### [facility] [address] [address] [address] Brea Causey E. Coli O157 Not Applicable Normal Not Applicable [facility] Comment on above: Performed By: #### U CLINT, CMP, LIPID, DBIL, PHOS, MG #### [facility] [address] [address] [address] Brea Causey E. histolytica Not detected Normal NOT DETECTED The [facility] Comment on above: Performed By: #### U CLINT, CMP, LIPID, DBIL, PHOS, MG #### [facility] [address] [address] [address] Brea Causey EAEC Not detected Normal NOT DETECTED The [facility] Comment on above: Performed By: #### U CLINT, CMP, LIPID, DBIL, PHOS, MG #### [facility] [address] [address] [address] Brea Causey EIEC Not detected Normal NOT DETECTED The [facility] Comment on above: Performed By: #### U CLINT, CMP, LIPID, DBIL, PHOS, MG #### [facility] [address] [place] [address] Dr. Brea Causey EPEC Not detected Normal NOT DETECTED The [facility] Comment on above: Performed By: #### U CLINT, CMP, LIPID, DBIL, PHOS, MG #### [facility] [address] [place] [address] Dr. Brea Causey ETEC Not detected Normal NOT DETECTED The [facility] Comment on above: Performed By: #### U CLINT, CMP, LIPID, DBIL, PHOS, MG #### [facility] [address] [place] [address] Dr. Brea River. Lamblia Not detected Normal NOT DETECTED The [facility] Comment on above: Performed By: #### U CLINT, CMP, LIPID, DBIL, PHOS, MG #### [facility] [address] [place] [address] Dr. Brea LEZAMA CONTROLS PASSED Normal [facility] Comment on above: Performed By: #### U CLINT, CMP, LIPID, DBIL, PHOS, MG #### [facility] [address] [address] [address] Brea DARDEN DAVID HEADER GI PANEL BACTERIA Normal T [facility] Comment on above: Performed By: #### U CLINT, CMP, LIPID, DBIL, PHOS, MG #### [facility] [address] [address] [address] Brea DARDENHD ECOLI GI PANEL DIARRHEAGENIC E.COLI / SHIGELLA Normal [facility] Comment on above: Performed By: #### U CLINT, CMP, LIPID, DBIL, PHOS, MG #### [facility] [address] [address] [address] Brea DARDEN INFO SEE BELOW Normal [facility] Comment on above: Result Comment: EAEC - Enteroaggregative E. Coli EPEC- Enteropathogenic E. Coli ETEC- Enterotoxigenic E. Coli lt/st STEC- Shigella-like toxin-producing E. Coli stx1/stx2 EIEC- Shigella/Enteroinvasive E. Coli Performed By: #### U CLINT, CMP, LIPID, DBIL, PHOS, MG #### [facility] [address] [place] [address] Dr. Brea PINTO PARASITES GI PANEL PARASITES Normal [facility] Comment on above: Performed By: #### U CLINT, CMP, LIPID, DBIL, PHOS, MG #### [facility] [address] [place] [address] Dr. Brea PINTO VIRUS GI PANEL VIRUSES Normal [facility] Comment on above: Performed By: #### U CLINT, CMP, LIPID, DBIL, PHOS, MG #### [facility] [address] [place] [address] Dr. Brea Causey Norovirus GI/GII Not detected Normal NOT DETECTED [facility] Comment on above: Performed By: #### U CLINT, CMP, LIPID, DBIL, PHOS, MG #### [facility] [address] [place] [address] Dr. Brea Causey P. Shigelloides Not detected Normal NOT DETECTED The [facility] Comment on above: Performed By: #### U CLINT, CMP, LIPID, DBIL, PHOS, MG #### [facility] [address] [place] [address] Dr. Brea Causey Rotavirus A Not detected Normal NOT DETECTED [facility] Comment on above: Performed By: #### U CLINT, CMP, LIPID, DBIL, PHOS, MG #### [facility] [address] [address] [address] Brea Causey Salmonella Not detected Normal NOT DETECTED [facility] Comment on above: Performed By: #### U CLINT, CMP, LIPID, DBIL, PHOS, MG #### [facility] [address] [place] [address] Dr. Brea Causey Sapovirus Not detected Normal NOT DETECTED [facility] Comment on above: Performed By: #### U CLINT, CMP, LIPID, DBIL, PHOS, MG #### [facility] [address] [place] [address] Dr. Brea Causey STEC Not detected Normal NOT DETECTED [facility] Comment on above: Performed By: #### U CLINT, CMP, LIPID, DBIL, PHOS, MG #### [facility] [address] [place] [address] Dr. Brea Causey Vibrio Not detected Normal NOT DETECTED [facility] Comment on above: Performed By: #### U CLINT, CMP, LIPID, DBIL, PHOS, MG #### [facility] [address] [place] [address] Dr. Brea Causey Vibrio Cholera Not detected Normal NOT DETECTED [facility] Comment on above: Performed By: #### U CLINT, CMP, LIPID, DBIL, PHOS, MG #### [facility] [address] [place] [address] Dr. Brea Causey Y. Enterocolitica Not detected Normal NOT DETECTED [facility] Comment on above: Performed By: #### U CLINT, CMP, LIPID, DBIL, PHOS, MG #### [facility] [address] [place] [address] Dr. Brea Causey PROF 14(COMP METB)on 022 Albumin [Mass/Vol] 4.0 g/dL Normal 3.4-5.0 [facility] Comment on above: Performed By: #### C BC #### [facility] [address] [place] [address] Dr. Brea Causey Albumin/Globulin [Mass ratio] 1.3 {ratio} Normal [facility] Comment on above: Performed By: #### C BC #### [facility] [address] [address] [address] Brea Causey ALP [Catalytic activity/Vol] 142 U/L Critically high 46-116 [facility] Comment on above: Performed By: #### C BC #### [facility] [address] [place] [address] Dr. Brea Causey ALT [Catalytic activity/Vol] 39 U/L Normal 16-63 [facility] Comment on above: Performed By: #### C BC #### [facility] [address] [place] [address] Dr. Brea Causey Anion gap [Moles/Vol] 13.6 mmol/L Normal [facility] Comment on above: Performed By: #### C BC #### [facility] [address] [place] [address] Dr. Brea Causey AST [Catalytic activity/Vol] 23 U/L Normal 15-37 [facility] Comment on above: Performed By: #### C BC #### [facility] [address] [place] [address] Dr. Brea Causey Bilirubin [Mass/Vol] 0.4 mg/dL Normal 0.2-1.0 [facility] Comment on above: Performed By: #### C BC #### [facility] [address] [place] [address] Dr. Brea Causey Calcium [Mass/Vol] 8.4 mg/dL Critically low 8.5-10.[address] [facility] Comment on above: Performed By: #### C BC #### [facility] [address] [place] [address] Dr. Brea Causey Chloride [Moles/Vol] 97 mmol/L Critically low 98-107 [facility] Comment on above: Performed By: #### C BC #### [facility] [address] [place] [address] Dr. Brea Causey CO2 [Moles/Vol] 26.1 mmol/L Normal 21.0-32.0 [facility] Comment on above: Performed By: #### C BC #### [facility] [address] [place] [address] Dr. Brea Causey Creatinine [Mass/Vol] 1.21 mg/dL Normal 0.70-1.30 [facility] Comment on above: Performed By: #### C BC #### [facility] [address] [place] [address] Dr. Brea Causey EGFR-AF CITIZEN [place] >60 Normal >=60 [facility] Comment on above: Performed By: #### C BC #### [facility] [address] [address] [address] Brea Causey EGFR-NON AF CITIZEN [place] 59 mL/min/1.73m2 Critically low >=60 [facility] Comment on above: Performed By: #### C BC #### [facility] [address] [place] [address] Dr. Brea Causey Globulin (S) [Mass/Vol] 3.2 g/dL Normal [facility] Comment on above: Performed By: #### C BC #### [facility] [address] [place] [address] Dr. Brea Causey Glucose [Mass/Vol] 227 mg/dL Critically high 74-106 T [facility] Comment on above: Performed By: #### C BC #### [facility] [address] [place] [address] Dr. Brea Causey Potassium [Moles/Vol] 4.7 mmol/L Normal 3.5-5.1 [facility] Comment on above: Performed By: #### C BC #### [facility] [address] [place] [address] Dr. Brea Causey Protein [Mass/Vol] 7.2 g/dL Normal 6.4-8.2 [facility] Comment on above: Performed By: #### C BC #### [facility] [address] [place] [address] Dr. Brea Causey Sodium [Moles/Vol] 132 mmol/L Critically low 136-145 Th [facility] Comment on above: Performed By: #### C BC #### [facility] [address] [place] [address] Dr. Brea Causey Urea nitrogen [Mass/Vol] 12.0 mg/dL Normal 7.0-18.0 [facility] Comment on above: Performed By: #### C BC #### [facility] [address] [address] [address] Brea Causey Urea nitrogen/Creatinine [Mass ratio] 9.9 mg/mg Normal [facility] Comment on above: Performed By: #### C BC #### [facility] [address] [address] [address] Brea Causey CBC W/DIFFon 10-31-2021 ABS IMM GRANS 0.1 10*3/uL Normal 0.0-0.2 The [facility] Comment on above: Performed By: #### 4 5506, 85642, 82962, 85044, 21023, 07466 #### [facility] [address] ABS NEUTROPHILS 5.9 10*3/uL Normal 1.6-7.6 The [facility] Comment on above: Performed By: #### 4 5506, 93473, 49260, 44468, 54181, 39023 #### [facility] [address] [place] [address], [facility] Basophils (Bld) [#/Vol] 0.0 10*3/uL Normal 0.0-0.2 The [facility] Comment on above: Performed By: #### 4 5506, 17336, 00536, 71660, 59922, 21218 #### [facility] [address] [place] [address], [facility] Basophils/100 WBC (Bld) 0.3 % Normal 0.0-1.0 The [facility] Comment on above: Performed By: #### 4 5506, 85983, 82066, 82117, 18207, 45933 #### [facility] [address] [place] [address], [facility] Eosinophils (Bld) [#/Vol] 0.2 10*3/uL Normal 0.0-0.5 The [facility] Comment on above: Performed By: #### 4 5506, 53302, 11623, 33944, 46488, 66031 #### [facility] [address] [place] [address], [facility] Eosinophils/100 WBC (Bld) 2.3 % Normal 0.0-6.0 The [facility] Comment on above: Performed By: #### 4 5506, 93331, 22214, 96513, 20189, 37533 #### [facility] [address] Erythrocyte distribution width (RBC) [Ratio] 13.4 % Normal 11.5-15.0 The [facility] Comment on above: Performed By: #### 4 5506, 63344, 17629, 78419, 20173, 42323 #### [facility] [address] Hematocrit (Bld) [Volume fraction] 36.1 % Low 39.0-50.0 The [facility] Comment on above: Performed By: #### 4 5506, 09642, 75768, 76674, 80386, 59465 #### [facility] [address] [facility] Hemoglobin (Bld) [Mass/Vol] 11.9 g/dL Low 13.0-17.0 The [facility] Comment on above: Performed By: #### 4 5506, 94335, 33581, 25771, 25398, 33496 #### [facility] [address] [place] [address], [facility] IMMATURE GRANS 0.7 % Normal 0.0-1.0 The [facility] Comment on above: Performed By: #### 4 5506, 34844, 81614, 50983, 47660, 52696 #### [facility] [address] [place] [place] [address], [facility] Lymphocytes (Bld) [#/Vol] 0.9 10*3/uL Low 1.2-4.0 The [facility] Comment on above: Performed By: #### 4 5506, 95418, 49750, 08649, 40659, 37224 #### [facility] [address] [facility] [place] [address], [facility] Lymphocytes/100 WBC (Bld) 12.1 % Low 20.0-45.0 The [facility] Comment on above: Performed By: #### 4 5506, 06078, 98375, 39534, 17807, 17503 #### [facility] [address] [facility] [place] [address], [facility] MCH (RBC) [Entitic mass] 29.3 pg Normal 27.0-33.0 The [facility] Comment on above: Performed By: #### 4 5506, 51580, 19875, 77870, 29080, 38079 #### [facility] [address] [facility] [place] [address], [facility] MCHC (RBC) [Mass/Vol] 33.0 g/dL Normal 32.0-35.0 The [facility] Comment on above: Performed By: #### 4 5506, 06821, 08880, 70335, 64320, 89449 #### [facility] [address] [facility] [place] [address], [facility] MCV (RBC) [Entitic vol] 88.9 fL Normal 82.0-98.0 The [facility] Comment on above: Performed By: #### 4 5506, 18812, 40888, 94693, 08193, 13550 #### [facility] [address] [facility] [place] [address], [facility] Monocytes (Bld) [#/Vol] 0.6 10*3/uL Normal 0.1-1.0 The [facility] Comment on above: Performed By: #### 4 5506, 70315, 07356, 94658, 01754, 12991 #### [facility] [address] [place] [address], [facility] MONOS 8.3 % Normal 5.0-12.0 The [facility] Comment on above: Performed By: #### 4 5506, 78358, 95505, 32465, 57139, 66803 #### [facility] [address] [place] [id number], [facility] Neutrophils/100 WBC (Bld) 76.3 % High 40.0-72.0 The [facility] Comment on above: Performed By: #### 4 5506, 72088, 94646, 01024, 15505, 34535 #### [facility] [address] [place] [id number], [facility] Nucleated RBC/100 WBC (Bld) [Ratio] 0 % Normal 0-0 The [facility] Comment on above: Performed By: #### 4 5506, 27333, 37578, 59389, 14167, 83927 #### [facility] [address] [place] [address], [place] PLAT CNT 260 10*3/uL Normal 150-400 [facility] Comment on above: Performed By: #### 4 5506, 53995, 74959, 08050, 01994, 06952 #### [facility] [address] [place] [id number], [facility] RBC (Bld) [#/Vol] 4.06 10*6/uL Low 4.20-5.70 The [facility] Comment on above: Performed By: #### 4 5506, 66121, 62436, 29974, 81202, 00108 #### [facility] [address] [place] [id number], [place] WBC (Bld) [#/Vol] 7.68 10*3/uL Normal 4.00-10.60 The [facility] Comment on above: Performed By: #### 4 5506, 61487, 52074, 11573, 87201, 60242 #### [facility] [address] [place] [address], [facility] COMP METABOLIC PANELon 10-31 Albumin [Mass/Vol] 4.4 g/dL Normal 3.5-5.7 The [facility] Comment on above: Performed By: #### 4 5506, 59717, 50075, 12187, 32187, 74196 #### [facility] [address] [place] [address], [facility] ALKALINE PHOSPH 132 IU/L High 34-104 The [facility] Comment on above: Performed By: #### 4 5506, 92563, 93330, 39910, 59769, 44279 #### [facility] [address] [place] [address], [facility] ALT [Catalytic activity/Vol] 26 U/L Normal 7-52 The [facility] Comment on above: Performed By: #### 4 5506, 33957, 99285, 97524, 80415, 65637 #### [facility] [address] [place] [address], [facility] AST [Catalytic activity/Vol] 17 U/L Normal 13-39 The [facility] Comment on above: Performed By: #### 4 5506, 68395, 97318, 18523, 90458, 58329 #### [facility] [address] [place] [address], [place] Bilirubin [Mass/Vol] 0.4 mg/dL Normal 0.3-1.0 The [facility] Comment on above: Performed By: #### 4 5506, 73332, 42075, 60980, 18664, 90451 #### [facility] [address] [place] [address], [place] Calcium [Mass/Vol] 8.6 mg/dL Normal 8.6-10.3 The [facility] Comment on above: Performed By: #### 4 5506, 34132, 19297, 45589, 95250, 16486 #### [facility] [address] [place] [address], [place] Chloride [Moles/Vol] 97 mmol/L Low 98-107 The [facility] Comment on above: Performed By: #### 4 5506, 69594, 92247, 95011, 83743, 43005 #### [facility] [address] [place] [address], [place] CO2 [Moles/Vol] 26 mmol/L Normal 21-31 The [facility] Comment on above: Performed By: #### 4 5506, 10796, 12995, 39433, 79095, 51768 #### [facility] [address] [place] [address], [place] Creatinine [Mass/Vol] 1.04 mg/dL Normal 0.70-1.30 The [facility] Comment on above: Performed By: #### 4 5506, 57616, 57769, 80610, 68567, [address] #### [facility] [address] [place] [address], [place] GFR/1.73 sq M.predicted among blacks MDRD (S/P/Bld) [Vol rate/Area] mL/min/{1.73_m2} Normal >60 [facility] Comment on above: Performed By: #### 4 5506, 98759, 24990, 34223, 76655, 71671 #### [facility] [address] [place] [address], [place] GFR/1.73 sq M.predicted among non-blacks MDRD (S/P/Bld) [Vol rate/Area] mL/min/{1.73_m2} Normal >60 [facility] Comment on above: Performed By: #### 4 5506, 23901, 56063, 01449, 47409, 63286 #### [facility] [address] [place] [address], [place] Glucose [Mass/Vol] 158 mg/dL High 70-100 [facility] Comment on above: Performed By: #### 4 5506, 43559, 37984, 10983, 82752, 80151 #### [facility] [address] [place] [address], [facility] Potassium [Moles/Vol] 4.4 mmol/L Normal 3.5-5.1 [facility] Comment on above: Performed By: #### 4 5506, 16874, 20295, 96231, 54715, 49367 #### [facility] [address] [place] [address], [facility] Protein [Mass/Vol] 6.6 g/dL Normal 6.0-8.3 [facility] Comment on above: Performed By: #### 4 5506, 92154, 84505, 46528, 85415, 47499 #### [facility] [address] [place] [address], [facility] Sodium [Moles/Vol] 131 mmol/L Low 136-145 [facility] Comment on above: Performed By: #### 4 5506, 36579, 79690, 44132, 57795, 88649 #### [facility] [address] [place] [id number], [facility] Urea nitrogen [Mass/Vol] 15 mg/dL Normal 7-25 [facility] Comment on above: Performed By: #### 4 5506, 17717, 06286, 61292, 10850, 97748 #### [facility] [address] [place] [address], [facility] DIRECT BILIon 10-31-2021 Bilirubin.direct [Mass/Vol] 0.1 mg/dL Normal 0.0-0.2 [facility] Comment on above: Performed By: #### 4 5506, 14046, 91477, 30596, 96745, 35873 #### [facility] [address] [place] [address], [place] LIPID PROFILEon 10-31-2021 Cholesterol [Mass/Vol] 70 mg/dL Low 120-200 [facility] Comment on above: Result Comment: CHOL ESTEROL REFERENCE RANGE: 20 YEARS AND OLDER CARDIOVASCULAR RISK Less than 200 mg/dl Low Risk 200 to 239 mg/dl Borderline Risk 240 mg/dl and greater High Risk Performed By: #### 4 5506, 49828, 58372, 97837, 57279, 60214 #### [facility] [address] [place] [address], [place] Cholesterol in HDL [Mass/Vol] 35 mg/dL Normal 23-92 [facility] Comment on above: Result Comment: Slig ht variation in normal range could be due to gender and/or age. HDL CHOLESTEROL REFERENCE RANGE: 20 years and older Cardiovascular Risk > or =60 mg/dL Desirable 40 TO 59 mg/dL Low Risk <40 mg/dL High Risk Performed By: #### 4 5506, 21728, 63599, 13766, 75823, 70557 #### [facility] [address] [place] [address], [place] Cholesterol in LDL [Mass/Vol] 20 mg/dL Normal 0-130 [facility] Comment on above: Result Comment: LDL IS A CALCULATION LDL IS ONLY VALID IF THE TRIG IS LESS THAN 400. Performed By: #### 4 5506, 04989, 35181, 05676, 36952, 91579 #### [facility] [address] [place] [address], [place] Cholesterol.total/Cho lesterol in HDL [Mass ratio] 2.0 {ratio} Normal .0-4.5 [facility] Comment on above: Performed By: #### 4 5506, 35429, 26901, 97720, 85669, 23239 #### [facility] [address] [place] [address], [place] NON-HDL CHOLESTEROL 35 mg/dL Normal [facility] Comment on above: Performed By: #### 4 5506, 43471, 11302, 77139, 39002, 87757 #### [facility] [address] Triglyceride [Mass/Vol] 73 mg/dL Normal 40-149 [facility] Comment on above: Result Comment: TRIG LYCERIDE REFERENCE RANGE: 20 YEARS AND OLDER CARDIOVASCULAR RISK LESS THAN 150 mg/dl LOW RISK 150 TO 199 mg/dl BORDERLINE RISK 200 mg/dl AND GREATER HIGH RISK Performed By: #### 4 5506, 99694, 29046, 13211, 34965, 72398 #### [facility] [address] [place] [address], [facility] VLDL CHOL 15 mg/dL Normal 0-40 [facility] Comment on above: Performed By: #### 4 5506, 66526, 62605, 98888, 27142, 03629 #### [facility] [address] MAGNESIUM BLOODon 10-31-2021 Magnesium [Mass/Vol] 1.1 mg/dL Critically low 1.9-2.7 [facility] Comment on above: Performed By: #### 4 5506, 04878, 59680, 91495, 52548, 73676 #### [facility] [address] [facility] [place] [address], [facility] PHOSPHORUS BLOODon Phosphate [Mass/Vol] 3.0 mg/dL Normal 2.5-5.0 [facility] Comment on above: Performed By: #### 4 5506, 57351, 55677, 49389, 20706, 73404 #### [facility] [address] PROSPERAon 10-31-2021 PROSPERA KIT Results to be mailed directly to physician's office by reference lab. Normal [facility] Comment on above: Result Comment: Test performed by [id number] [place] [id number] Specimen collected for transplant patient [facility] per Dr instructions. No charge. No result expected. For billing and tracking purposes only. Performed By: #### 4 5506, 02689, 66429, 62498, 61026, 04244 #### [facility] [address] [facility]. [address] RESULT Results to be mailed directly to physician's office by reference lab. Normal [facility] Comment on above: Performed By: #### 4 5506, 96217, 33354, 48163, 90197, 36283 #### [facility] [address] [facility]. [address] TACROLIMUSon 10-31-2021 Tacrolimus (Bld) [Mass/Vol] 7.6 ng/mL Normal 5.0-20.0 [facility] Comment on above: Result Comment: The [employer] Tacrolimus assay is a delayed one-step immunoassay for the quantitative determination of tacrolimus in human whole blood using the chemiluminescent microparticle immunoassay (CMIA) technology with flexible assay protocols, referred to as Chemiflex. Performed By: #### 4 5506, 04205, 95416, 42571, 74648, 87497 #### [facility] [address] [facility]. [address] URIC ACID BLOODon 10-31-2021 Urate [Mass/Vol] 7.8 mg/dL High 4.4-7.6 [facility] Comment on above: Performed By: #### 4 5506, 58353, 55088, 05963, 07402, 65493 #### [facility] [address] [facility]. [address] NM PARATHYROID WITH SPECT AN D CTon 07-24-2021 NM PARATHYROID WITH SPECT AND CT [facility] Department of Radiology [address] [place] [address] Patient Name: ROGER SUAREZ : 1950 Sex: M Age: Race: White Pt. Location: 20 Patient Status: D Ordered Date: 06/26/2021 8:40:00 AM Completed Date: 07/24/2021 01:21 PM Requesting Provider: NAGA BOSCH Attending Provider: NAGA BOSCH Report Copy To: JERICHO MCCARTHY Signs & Symptoms: E21.3 Hyperparathyroidism, unspecified I10 History: [place] NPC Req. per [facility] A/B for CPT 64731 *SLA Comments: , , , Ordering Provider [...] SPECT. Electronically signed: Nan Earl. Transcribed by: [email or web address], User Resident: Electronically Signed by: NAN EARL @ 07/27/2021 12:13 PM Normal [facility] Comment on above: Order Comment: , , = ========= , Ordering Provider - NAGA BOSCH MD , CBC W/DIFFon 06-22-2021 ABS IMM GRANS 0.1 10*3/uL Normal 0.0-0.2 [facility] Comment on above: Performed By: #### 4 5506, 61812, 81921, 96501, 20087, 83526 #### [facility] [address] ABS NEUTROPHILS 4.7 10*3/uL Normal 1.6-7.6 [facility] Comment on above: Performed By: #### 4 5506, 11130, 23277, 52120, 55638, 23341 #### [facility] [address] [place] [address], [facility] Basophils (Bld) [#/Vol] 0.0 10*3/uL Normal 0.0-0.2 [facility] Comment on above: Performed By: #### 4 5506, 18169, 82507, 70140, 26586, 91891 #### [facility] [address] [place] [address], [facility] Basophils/100 WBC (Bld) 0.6 % Normal 0.0-1.0 [facility] Comment on above: Performed By: #### 4 5506, 09825, 70536, 53054, 18532, 05506 #### [facility] [address] [place] [address], [facility] Eosinophils (Bld) [#/Vol] 0.2 10*3/uL Normal 0.0-0.5 [facility] Comment on above: Performed By: #### 4 5506, 63474, 05680, 62072, 38320, 57375 #### [facility] [address] [place] [address], [facility] Eosinophils/100 WBC (Bld) 2.5 % Normal 0.0-6.0 [facility] Comment on above: Performed By: #### 4 5506, 59002, 41059, 35048, 36041, 46242 #### [facility] [address] Erythrocyte distribution width (RBC) [Ratio] 13.6 % Normal 11.5-15.0 [facility] Comment on above: Performed By: #### 4 5506, 97380, 96255, 65346, 32587, 77589 #### [facility] [address] Hematocrit (Bld) [Volume fraction] 36.3 % Low 39.0-50.0 [facility] Comment on above: Performed By: #### 4 5506, 75061, 45070, 00176, 76591, 77620 #### [facility] [address] [place] [address], [facility] Hemoglobin (Bld) [Mass/Vol] 11.7 g/dL Low 13.0-17.0 [facility] Comment on above: Performed By: #### 4 5506, 56767, 33791, 05121, 24989, 18225 #### [facility] [address] [place] [address], [facility] IMMATURE GRANS 0.8 % Normal 0.0-1.0 [facility] Comment on above: Performed By: #### 4 5506, 77163, 97125, 32984, 56704, 61174 #### [facility] [address] [place] [address], [facility] Lymphocytes (Bld) [#/Vol] 0.9 10*3/uL Low 1.2-4.0 [facility] Comment on above: Performed By: #### 4 5506, 85089, 61975, 59817, 73122, 78731 #### [facility] [address] Lymphocytes/100 WBC (Bld) 13.6 % Low 20.0-45.0 [facility] Comment on above: Performed By: #### 4 5506, 64001, 70975, 22779, 15092, 29763 #### [facility] [address] [facility]. [address] MCH (RBC) [Entitic mass] 28.6 pg Normal 27.0-33.0 [facility] Comment on above: Performed By: #### 4 5506, 95053, 74543, 70290, 34601, 61095 #### [facility] [address] [facility]. [address] MCHC (RBC) [Mass/Vol] 32.2 g/dL Normal 32.0-35.0 [facility] Comment on above: Performed By: #### 4 5506, 46056, 78867, 96957, 28419, 72464 #### [facility] [address] [facility] [place] [address], [facility] MCV (RBC) [Entitic vol] 88.8 fL Normal 82.0-98.0 [facility] Comment on above: Performed By: #### 4 5506, 08459, 28461, 14171, 31487, 52489 #### [facility] [address] [facility] [place] [address], [facility] Monocytes (Bld) [#/Vol] 0.6 10*3/uL Normal 0.1-1.0 [facility] Comment on above: Performed By: #### 4 5506, 33820, 20852, 45290, 14023, 24910 #### [facility] [address] [place] [address], [facility] MONOS 9.6 % Normal 5.0-12.0 [facility] Comment on above: Performed By: #### 4 5506, 07304, 76810, 46068, 38010, 91004 #### [facility] [address] [place] [address], [facility] Neutrophils/100 WBC (Bld) 72.9 % High 40.0-72.0 [facility] Comment on above: Performed By: #### 4 5506, 60242, 81549, 91936, 48844, 85352 #### [facility] [address] [place] [address], [facility] Nucleated RBC/100 WBC (Bld) [Ratio] 0 % Normal 0-0 [facility] Comment on above: Performed By: #### 4 5506, 73809, 16000, 12391, 75960, 80111 #### [facility] [address] [place] [address], [place] PLAT CNT 263 10*3/uL Normal 150-400 [facility] Comment on above: Performed By: #### 4 5506, 28013, 61790, 04243, 13217, 50970 #### [facility] [address] [place] [address], [facility] RBC (Bld) [#/Vol] 4.09 10*6/uL Low 4.20-5.70 [facility] Comment on above: Performed By: #### 4 5506, 73364, 51674, 25179, 20056, 87552 #### [facility] [address] [place] [address], [place] WBC (Bld) [#/Vol] 6.45 10*3/uL Normal 4.00-10.60 [facility] Comment on above: Performed By: #### 4 5506, 82455, 51876, 52561, 14125, 44575 #### [facility] [address] [place] [address], [facility] COMP METABOLIC PANELon 06-22 Albumin [Mass/Vol] 4.3 g/dL Normal 3.5-5.7 [facility] Comment on above: Performed By: #### 4 5506, 46744, 07038, 33637, 54347, 17709 #### [facility] [address] [place] [address], [facility] ALKALINE PHOSPH 143 IU/L High 34-104 [facility] Comment on above: Performed By: #### 4 5506, 69457, 78773, 45881, 73818, 75191 #### [facility] [address] [place] [address], [facility] ALT [Catalytic activity/Vol] 18 U/L Normal 7-52 [facility] Comment on above: Performed By: #### 4 5506, 96427, 79020, 01503, 98230, 95412 #### [facility] [address] [place] [address], [facility] AST [Catalytic activity/Vol] 15 U/L Normal 13-39 [facility] Comment on above: Performed By: #### 4 5506, 77425, 72692, 35074, 88733, 55414 #### [facility] [address] [place] [address], [facility] Bilirubin [Mass/Vol] 0.3 mg/dL Normal 0.3-1.0 [facility] Comment on above: Performed By: #### 4 5506, 29943, 97566, 31707, 15819, 57932 #### [facility] [address] [place] [address], [facility] Calcium [Mass/Vol] 10.6 mg/dL High 8.6-10.3 [facility] Comment on above: Performed By: #### 4 5506, 91618, 26874, 50456, 47760, 92534 #### [facility] [address] [place] [address], [place] Chloride [Moles/Vol] 102 mmol/L Normal 98-107 [facility] Comment on above: Performed By: #### 4 5506, 90908, 69981, 73000, 74958, 65924 #### [facility] [address] [place] [address], [place] CO2 [Moles/Vol] 24 mmol/L Normal 21-31 [facility] Comment on above: Performed By: #### 4 5506, 20014, 71854, 35733, 84858, 99971 #### [facility] [address] [place] [address], [place] Creatinine [Mass/Vol] 1.04 mg/dL Normal 0.70-1.30 [facility] Comment on above: Performed By: #### 4 5506, 50544, 17995, 86220, 27570, 61817 #### [facility] [address] [place] [address], [place] GFR/1.73 sq M.predicted among blacks MDRD (S/P/Bld) [Vol rate/Area] mL/min/{1.73_m2} Normal >60 [facility] Comment on above: Performed By: #### 4 5506, 32013, 96157, 40950, 18614, 35294 #### [facility] [address] [place] [address], [place] GFR/1.73 sq M.predicted among non-blacks MDRD (S/P/Bld) [Vol rate/Area] mL/min/{1.73_m2} Normal >60 [facility] Comment on above: Performed By: #### 4 5506, 38180, 03977, 94717, 96308, 30683 #### [facility] [address] [place] [address], [place] Glucose [Mass/Vol] 167 mg/dL High 70-100 [facility] Comment on above: Performed By: #### 4 5506, 76886, 40321, 21147, 80073, 99937 #### [facility] [address] [place] [address], [facility] Potassium [Moles/Vol] 5.3 mmol/L High 3.5-5.1 [facility] Comment on above: Performed By: #### 4 5506, 70340, 17298, 08453, 76597, 71177 #### [facility] [address] [place] [address], [facility] Protein [Mass/Vol] 6.5 g/dL Normal 6.0-8.3 [facility] Comment on above: Performed By: #### 4 5506, 49345, 12154, 97426, 50746, 84840 #### [facility] [address] [place] [address], [facility] Sodium [Moles/Vol] 134 mmol/L Low 136-145 [facility] Comment on above: Performed By: #### 4 5506, 07281, 00696, 55080, 41934, 12496 #### [facility] [address] [place] [address], [facility] Urea nitrogen [Mass/Vol] 11 mg/dL Normal 7-25 [facility] Comment on above: Performed By: #### 4 5506, 86877, 99942, 07295, 81823, 95908 #### [facility] [address] [place] [address], [place] DIRECT BILIon 06-22-2021 Bilirubin.direct [Mass/Vol] 0.1 mg/dL Normal 0.0-0.2 [facility] Comment on above: Performed By: #### 4 5506, 87761, 22552, 09466, 87995, 84033 #### [facility] [address] [place] [address], [place] LIPID PROFILEon 06-22-2021 Cholesterol [Mass/Vol] 77 mg/dL Low 120-200 [facility] Comment on above: Result Comment: CHOL ESTEROL REFERENCE RANGE: 20 YEARS AND OLDER CARDIOVASCULAR RISK Less than 200 mg/dl Low Risk 200 to 239 mg/dl Borderline Risk 240 mg/dl and greater High Risk Performed By: #### 4 5506, 57326, 89233, 72454, 14958, 68484 #### [facility] [address] [place] [address], [facility] Cholesterol in HDL [Mass/Vol] 40 mg/dL Normal 23-92 [facility] Comment on above: Result Comment: Slig ht variation in normal range could be due to gender and/or age. HDL CHOLESTEROL REFERENCE RANGE: 20 years and older Cardiovascular Risk > or =60 mg/dL Desirable 40 TO 59 mg/dL Low Risk <40 mg/dL High Risk Performed By: #### 4 5506, 29681, 47255, 75271, 61331, 03741 #### [facility] [address] [place] [address], [facility] Cholesterol in LDL [Mass/Vol] 24 mg/dL Normal 0-130 [facility] Comment on above: Result Comment: LDL IS A CALCULATION LDL IS ONLY VALID IF THE TRIG IS LESS THAN 400. Performed By: #### 4 5506, 86967, 64079, 88411, 48074, 89340 #### [facility] [address] [place] [address], [facility] Cholesterol.total/Cho lesterol in HDL [Mass ratio] 1.9 {ratio} Normal .0-4.5 [facility] Comment on above: Performed By: #### 4 5506, 42714, 94483, 28543, 40044, 15777 #### [facility] [address] [place] [address], [facility] NON-HDL CHOLESTEROL 37 mg/dL Normal [facility] Comment on above: Performed By: #### 4 5506, 22013, 67610, 87473, 17159, 42634 #### [facility] [address] [facility]. [address] Triglyceride [Mass/Vol] 63 mg/dL Normal 40-149 [facility] Comment on above: Result Comment: TRIG LYCERIDE REFERENCE RANGE: 20 YEARS AND OLDER CARDIOVASCULAR RISK LESS THAN 150 mg/dl LOW RISK 150 TO 199 mg/dl BORDERLINE RISK 200 mg/dl AND GREATER HIGH RISK Performed By: #### 4 5506, 76649, 62189, 51171, 80346, 54723 #### [facility] [address] [facility] [place] [address], [facility] VLDL CHOL 13 mg/dL Normal 0-40 [facility] Comment on above: Performed By: #### 4 5506, 42250, 63685, 52984, 34745, 26580 #### [facility] [address] [facility] [place] [address], [facility] MAGNESIUM BLOODon 06-22-2021 Magnesium [Mass/Vol] 1.4 mg/dL Low 1.9-2.7 [facility] Comment on above: Performed By: #### 4 5506, 61202, 65182, 49981, 01791, 38259 #### [facility] [address] [facility] [place] [address], [facility] PHOSPHORUS BLOODon Phosphate [Mass/Vol] 2.5 mg/dL Normal 2.5-5.0 [facility] Comment on above: Performed By: #### 4 5506, 74164, 01412, 15282, 02017, 40970 #### [facility] [address] [facility] [place] [address], [facility] PTH INTACTon 06-22-2021 PTH INTACT 155 pg/mL High 12-88 [facility] Comment on above: Performed By: #### 4 5506, 33735, 53565, 41982, 20210, 12534 #### [facility] [address] [place] [address], [facility] TACROLIMUSon 06-22-2021 Tacrolimus (Bld) [Mass/Vol] 21.0 ng/mL High 5.0-20.0 [facility] Comment on above: Result Comment: The [employer] Tacrolimus assay is a delayed one-step immunoassay for the quantitative determination of tacrolimus in human whole blood using the chemiluminescent microparticle immunoassay (CMIA) technology with flexible assay protocols, referred to as Chemiflex. Performed By: #### 4 5506, 31407, 53148, 96448, 75909, 33003 #### [facility] [address] URIC ACID BLOODon 06-22-2021 Urate [Mass/Vol] 7.9 mg/dL High 4.4-7.6 [facility] Comment on above: Performed By: #### 4 5506, 70020, 67970, 90434, 44482, 98565 #### [facility] [address] CBC W/DIFFon 04-19-2021 ABS IMM GRANS 0.1 10*3/uL Normal 0.0-0.2 [facility] Comment on above: Performed By: #### 4 5506, 98007, 72862, 84759, 67129, 29707 #### [facility] [address] ABS NEUTROPHILS 5.2 10*3/uL Normal 1.6-7.6 [facility] Comment on above: Performed By: #### 4 5506, 41884, 98263, 85428, 16324, 36473 #### [facility] [address] [facility] [place] [address], [facility] Basophils (Bld) [#/Vol] 0.0 10*3/uL Normal 0.0-0.2 [facility] Comment on above: Performed By: #### 4 5506, 02894, 94899, 06525, 82647, 01225 #### [facility] [address] Basophils/100 WBC (Bld) 0.4 % Normal 0.0-1.0 [facility] Comment on above: Performed By: #### 4 5506, 84179, 13834, 89557, 69440, 53723 #### [facility] [address] Eosinophils (Bld) [#/Vol] 0.2 10*3/uL Normal 0.0-0.5 [facility] Comment on above: Performed By: #### 4 5506, 91418, 35554, 48072, 23747, 18961 #### [facility] [address] Eosinophils/100 WBC (Bld) 2.9 % Normal 0.0-6.0 [facility] Comment on above: Performed By: #### 4 5506, 45293, 31805, 21498, 24077, 46151 #### [facility] [address] Erythrocyte distribution width (RBC) [Ratio] 13.3 % Normal 11.5-15.0 [facility] Comment on above: Performed By: #### 4 5506, 15752, 20581, 31398, 90803, 17612 #### [facility] [address] Hematocrit (Bld) [Volume fraction] 37.1 % Low 39.0-50.0 [facility] Comment on above: Performed By: #### 4 5506, 06591, 97788, 19953, 87065, 42845 #### [facility] [address] Hemoglobin (Bld) [Mass/Vol] 11.7 g/dL Low 13.0-17.0 [facility] Comment on above: Performed By: #### 4 5506, 84720, 59852, 86367, 11484, 68859 #### [facility] [address] IMMATURE GRANS 0.9 % Normal 0.0-1.0 [facility] Comment on above: Performed By: #### 4 5506, 81162, 32990, 48584, 67922, 25953 #### [facility] [address] [place] [address], [facility] Lymphocytes (Bld) [#/Vol] 0.9 10*3/uL Low 1.2-4.0 [facility] Comment on above: Performed By: #### 4 5506, 28791, 00934, 21792, 44314, 66978 #### [facility] [facility] [address] Lymphocytes/100 WBC (Bld) 12.5 % Low 20.0-45.0 [facility] Comment on above: Performed By: #### 4 5506, 85655, 04427, 62399, 94647, 55380 #### [facility] [address] MCH (RBC) [Entitic mass] 29.0 pg Normal 27.0-33.0 [facility] Comment on above: Performed By: #### 4 5506, 94032, 58486, 07744, 28648, 46656 #### [facility] [address] MCHC (RBC) [Mass/Vol] 31.5 g/dL Low 32.0-35.0 [facility] Comment on above: Performed By: #### 4 5506, 20500, 92158, 62277, 29934, 80439 #### [facility] [address] [place] [address], [facility] MCV (RBC) [Entitic vol] 92.1 fL Normal 82.0-98.0 [facility] Comment on above: Performed By: #### 4 5506, 58742, 46799, 29300, 36216, 01292 #### [facility] [address] [facility] [place] [address], [facility] Monocytes (Bld) [#/Vol] 0.6 10*3/uL Normal 0.1-1.0 [facility] Comment on above: Performed By: #### 4 5506, 62600, 46013, 99077, 94871, 73285 #### [facility] [address] [facility] [place] [address], [facility] MONOS 8.6 % Normal 5.0-12.0 [facility] Comment on above: Performed By: #### 4 5506, 59871, 55646, 90706, 38564, 05183 #### [facility] [address] [facility] [place] [address], [facility] Neutrophils/100 WBC (Bld) 74.7 % High 40.0-72.0 [facility] Comment on above: Performed By: #### 4 5506, 13220, 05624, 13212, 30335, 17814 #### [facility] [address] [facility]. [address] Nucleated RBC/100 WBC (Bld) [Ratio] 0 % Normal 0-0 [facility] Comment on above: Performed By: #### 4 5506, 16964, 87706, 88699, 88391, 84715 #### [facility] [address] [facility] [place] [address], [facility] PLAT CNT 290 10*3/uL Normal 150-400 [facility] Comment on above: Performed By: #### 4 5506, 66517, 47542, 55884, 20746, 67852 #### [facility] [address] [place] [address], [facility] RBC (Bld) [#/Vol] 4.03 10*6/uL Low 4.20-5.70 [facility] Comment on above: Performed By: #### 4 5506, 71166, 63916, 83147, 33923, 04033 #### [facility] [address] [place] [address], [facility] WBC (Bld) [#/Vol] 6.96 10*3/uL Normal 4.00-10.60 [facility] Comment on above: Performed By: #### 4 5506, 59878, 80414, 28814, 18331, 69771 #### [facility] [address] COMP METABOLIC PANELon 04-19 Albumin [Mass/Vol] 4.3 g/dL Normal 3.5-5.7 [facility] Comment on above: Performed By: #### 4 5506, 63753, 25331, 95392, 33698, 74385 #### [facility] [address] ALKALINE PHOSPH 137 IU/L High 34-104 [facility] Comment on above: Performed By: #### 4 5506, 33916, 55801, 33153, 93346, 69039 #### [facility] [address] ALT [Catalytic activity/Vol] 17 U/L Normal 7-52 [facility] Comment on above: Performed By: #### 4 5506, 07361, 58493, 28912, 60233, 01518 #### [facility] [address] AST [Catalytic activity/Vol] 16 U/L Normal 13-39 [facility] Comment on above: Performed By: #### 4 5506, 85576, 78982, 75032, 30903, 59266 #### [facility] [address] [place] [address], [facility] Bilirubin [Mass/Vol] 0.4 mg/dL Normal 0.3-1.0 [facility] Comment on above: Performed By: #### 4 5506, 42984, 75845, 35344, 67897, 50059 #### [facility] [address] [place] [address], [place] Calcium [Mass/Vol] 10.5 mg/dL High 8.6-10.3 [facility] Comment on above: Performed By: #### 4 5506, 75254, 41608, 76551, 75211, 26237 #### [facility] [address] [place] [address], [place] Chloride [Moles/Vol] 99 mmol/L Normal 98-107 [facility] Comment on above: Performed By: #### 4 5506, 55754, 74449, 93085, 40682, 92235 #### [facility] [address] [place] [address], [place] CO2 [Moles/Vol] 27 mmol/L Normal 21-31 [facility] Comment on above: Performed By: #### 4 5506, 91694, 83876, 41744, 66280, 11374 #### [facility] [address] [place] [address], [place] Creatinine [Mass/Vol] 1.04 mg/dL Normal 0.70-1.30 [facility] Comment on above: Performed By: #### 4 5506, 64296, 48699, 31857, 01233, 38065 #### [facility] [address] [place] [address], [place] GFR/1.73 sq M.predicted among blacks MDRD (S/P/Bld) [Vol rate/Area] mL/min/{1.73_m2} Normal >60 [facility] Comment on above: Performed By: #### 4 5506, 02360, 80653, 89983, 07148, 63295 #### [facility] [address] [place] [address], [place] GFR/1.73 sq M.predicted among non-blacks MDRD (S/P/Bld) [Vol rate/Area] mL/min/{1.73_m2} Normal >60 [facility] Comment on above: Performed By: #### 4 5506, 16522, 26670, 39144, 18123, 93721 #### [facility] [address] [place] [address], [place] Glucose [Mass/Vol] 139 mg/dL High 70-100 [facility] Comment on above: Performed By: #### 4 5506, 71338, 38111, 32760, 17111, 45575 #### [facility] [address] [place] [address], [place] Potassium [Moles/Vol] 5.1 mmol/L Normal 3.5-5.1 [facility] Comment on above: Performed By: #### 4 5506, 58282, 69936, 00038, 12484, 77420 #### [facility] [address] [place] [address], [place] Protein [Mass/Vol] 6.5 g/dL Normal 6.0-8.3 [facility] Comment on above: Performed By: #### 4 5506, 55916, 53458, 93093, 94618, 89426 #### [facility] [address] [place] [address], [place] Sodium [Moles/Vol] 133 mmol/L Low 136-145 [facility] Comment on above: Performed By: #### 4 5506, 27330, 24250, 92601, 26927, 38736 #### [facility] [address] [place] [address], [place] Urea nitrogen [Mass/Vol] 11 mg/dL Normal 7-25 [facility] Comment on above: Performed By: #### 4 5506, 73138, 94166, 71383, 08937, 59649 #### [facility] [address] [place] [address], [place] DIRECT BILIon 04-19-2021 Bilirubin.direct [Mass/Vol] 0.1 mg/dL Normal 0.0-0.2 [facility] Comment on above: Performed By: #### 4 5506, 38268, 13846, 21551, 91081, 85955 #### [facility] [address] [place] [address], [facility] LIPID PROFILEon 04-19-2021 Cholesterol [Mass/Vol] 82 mg/dL Low 120-200 [facility] Comment on above: Result Comment: CHOL ESTEROL REFERENCE RANGE: 20 YEARS AND OLDER CARDIOVASCULAR RISK Less than 200 mg/dl Low Risk 200 to 239 mg/dl Borderline Risk 240 mg/dl and greater High Risk Performed By: #### 4 5506, 42627, 88448, 16204, 35224, 85797 #### [facility] [address] [place] [address], [facility] Cholesterol in HDL [Mass/Vol] 38 mg/dL Normal 23-92 [facility] Comment on above: Result Comment: Slig ht variation in normal range could be due to gender and/or age. HDL CHOLESTEROL REFERENCE RANGE: 20 years and older Cardiovascular Risk > or =60 mg/dL Desirable 40 TO 59 mg/dL Low Risk <40 mg/dL High Risk Performed By: #### 4 5506, 23913, 05451, 01499, 06102, 17948 #### [facility] [address] [place] [address], [place] Cholesterol in LDL [Mass/Vol] 25 mg/dL Normal 0-130 [facility] Comment on above: Result Comment: LDL IS A CALCULATION LDL IS ONLY VALID IF THE TRIG IS LESS THAN 400. Performed By: #### 4 5506, 99074, 05665, 12887, 26169, 42489 #### [facility] [address] [place] [address], [place] Cholesterol.total/Cho lesterol in HDL [Mass ratio] 2.2 {ratio} Normal .0-4.5 [facility] Comment on above: Performed By: #### 4 5506, 41681, 12597, 56400, 25302, 64467 #### [facility] [address] NON-HDL CHOLESTEROL 44 mg/dL Normal [facility] Comment on above: Performed By: #### 4 5506, 36811, 84408, 54616, 32732, 40715 #### [facility] [address] Triglyceride [Mass/Vol] 93 mg/dL Normal 40-149 [facility] Comment on above: Result Comment: TRIG LYCERIDE REFERENCE RANGE: 20 YEARS AND OLDER CARDIOVASCULAR RISK LESS THAN 150 mg/dl LOW RISK 150 TO 199 mg/dl BORDERLINE RISK 200 mg/dl AND GREATER HIGH RISK Performed By: #### 4 5506, 36645, 03806, 34006, 99769, 24160 #### [facility] [address] VLDL CHOL 19 mg/dL Normal 0-40 [facility] Comment on above: Performed By: #### 4 5506, 55088, 52930, 08965, 02246, 88827 #### [facility] [address] [facility] [place] [address], [facility] MAGNESIUM BLOODon 04-19-2021 Magnesium [Mass/Vol] 1.8 mg/dL Low 1.9-2.7 [facility] Comment on above: Performed By: #### 4 5506, 32666, 33432, 10673, 16964, 57794 #### [facility] [address] [place] [address], [facility] PHOSPHORUS BLOODon Phosphate [Mass/Vol] 3.0 mg/dL Normal 2.5-5.0 [facility] Comment on above: Performed By: #### 4 5506, 24362, 31214, 32991, 05989, 88248 #### [facility] [address] PROSPERAon 04-19-2021 PROSPERA KIT Results to be mailed directly to physician's office by reference lab. Normal [facility] Comment on above: Result Comment: Test performed by [id number] [place] [id number] No result expected. For billing and tracking purposes only. Specimen collected for transplant patient and sent to requesting hospital per Dr instructions. No charge. Performed By: #### 4 5506, 28323, 33035, 41811, 60033, 27280 #### [facility] [address] [facility]. [address] RESULT Results to be mailed directly to physician's office by reference lab. Normal [facility] Comment on above: Performed By: #### 4 5506, 13578, 39450, 24795, 37159, 26568 #### [facility] [address] [facility]. [address] TACROLIMUSon 04-19-2021 Tacrolimus (Bld) [Mass/Vol] 7.7 ng/mL Normal 5.0-20.0 [facility] Comment on above: Result Comment: The [employer] Tacrolimus assay is a delayed one-step immunoassay for the quantitative determination of tacrolimus in human whole blood using the chemiluminescent microparticle immunoassay (CMIA) technology with flexible assay protocols, referred to as Chemiflex. Performed By: #### 4 5506, 93218, 52947, 57135, 75402, 11225 #### [facility] [address] [facility]. [address] URIC ACID BLOODon 04-19-2021 Urate [Mass/Vol] 7.9 mg/dL High 4.4-7.6 [facility] Comment on above: Performed By: #### 4 5506, 09219, 68365, 49149, 60095, 32818 #### [facility] [address] [facility] [place] [address], [facility] CBC W/DIFFon 04-11-2021 ABS IMM GRANS 0.0 10*3/uL Normal 0.0-0.2 [facility] Comment on above: Performed By: #### 4 5506, 07929, 81683, 07652, 04689, 00617 #### [facility] [address] [place] [address], [facility] ABS NEUTROPHILS 4.5 10*3/uL Normal 1.6-7.6 [facility] Comment on above: Performed By: #### 4 5506, 66636, 67748, 46257, 74093, 84103 #### [facility] [address] [place] [address], [place] Basophils (Bld) [#/Vol] 0.0 10*3/uL Normal 0.0-0.2 [facility] Comment on above: Performed By: #### 4 5506, 08852, 85443, 92609, 60330, 90776 #### [facility] [address] [place] [address], [place] Basophils/100 WBC (Bld) 0.5 % Normal 0.0-1.0 [facility] Comment on above: Performed By: #### 4 5506, 61288, 53692, 21681, 46648, 95456 #### [facility] [address] [place] [address], [place] Eosinophils (Bld) [#/Vol] 0.2 10*3/uL Normal 0.0-0.5 [facility] Comment on above: Performed By: #### 4 5506, 14562, 01829, 93375, 94508, 46717 #### [facility] [address] [place] [address], [place] Eosinophils/100 WBC (Bld) 3.1 % Normal 0.0-6.0 [facility] Comment on above: Performed By: #### 4 5506, 16069, 73843, 16185, 08016, 45862 #### [facility] [address] Erythrocyte distribution width (RBC) [Ratio] 13.4 % Normal 11.5-15.0 [facility] Comment on above: Performed By: #### 4 5506, 88310, 58170, 11433, 77581, 55993 #### [facility] [address] [facility] [place] [address], [facility] Hematocrit (Bld) [Volume fraction] 35.5 % Low 39.0-50.0 [facility] Comment on above: Performed By: #### 4 5506, 02112, 34859, 51753, 06166, 36295 #### [facility] 3000 [facility]. [address] Hemoglobin (Bld) [Mass/Vol] 11.7 g/dL Low 13.0-17.0 [facility] Comment on above: Performed By: #### 4 5506, 10770, 71273, 03339, 44345, 06351 #### [facility] [address] [facility]. [address] IMMATURE GRANS 0.6 % Normal 0.0-1.0 [facility] Comment on above: Performed By: #### 4 5506, 21916, 93848, 83227, 31130, 55949 #### [facility] [address] [facility] [place] [address], [facility] Lymphocytes (Bld) [#/Vol] 0.8 10*3/uL Low 1.2-4.0 [facility] Comment on above: Performed By: #### 4 5506, 44961, 17612, 24161, 77726, 62405 #### [facility] [address] [facility] [place] [address], [facility] Lymphocytes/100 WBC (Bld) 12.9 % Low 20.0-45.0 [facility] Comment on above: Performed By: #### 4 5506, 86019, 62347, 69124, 72475, 49014 #### [facility] [address] [place] [address], [facility] MCH (RBC) [Entitic mass] 29.2 pg Normal 27.0-33.0 [facility] Comment on above: Performed By: #### 4 5506, 58855, 54152, 17258, 16484, 44032 #### [facility] [address] [place] [address], [facility] MCHC (RBC) [Mass/Vol] 33.0 g/dL Normal 32.0-35.0 [facility] Comment on above: Performed By: #### 4 5506, 35429, 86789, 89441, 42359, 23859 #### [facility] [address] [place] [address], [facility] MCV (RBC) [Entitic vol] 88.5 fL Normal 82.0-98.0 [facility] Comment on above: Performed By: #### 4 5506, 76452, 57587, 38323, 85058, 80306 #### [facility] [address] [facility] [address] Monocytes (Bld) [#/Vol] 0.6 10*3/uL Normal 0.1-1.0 [facility] Comment on above: Performed By: #### 4 5506, 96240, 62842, 96802, 65610, 80127 #### [facility] 3000 [facility]. [address] MONOS 10.3 % Normal 5.0-12.0 [facility] Comment on above: Performed By: #### 4 5506, 09680, 81646, 17422, 23375, 45750 #### [facility] [address] [place] [address], [facility] Neutrophils/100 WBC (Bld) 72.6 % High 40.0-72.0 [facility] Comment on above: Performed By: #### 4 5506, 42579, 99943, 60264, 07710, 58448 #### [facility] [address] Nucleated RBC/100 WBC (Bld) [Ratio] 0 % Normal 0-0 [facility] Comment on above: Performed By: #### 4 5506, 35407, 80460, 20030, 49381, 12229 #### [facility] [address] [place] [address], [facility] PLAT CNT 272 10*3/uL Normal 150-400 [facility] Comment on above: Performed By: #### 4 5506, 79723, 95620, 18559, 82909, 05994 #### [facility] 3000 [facility]. [address] RBC (Bld) [#/Vol] 4.01 10*6/uL Low 4.20-5.70 [facility] Comment on above: Performed By: #### 4 5506, 22597, 72005, 31150, 42144, 68999 #### [facility] 3000 [facility]. [address] WBC (Bld) [#/Vol] 6.22 10*3/uL Normal 4.00-10.60 [facility] Comment on above: Performed By: #### 4 5506, 60986, 06490, 67276, 17440, 21829 #### [facility] 3000 [facility]. [address] COMP METABOLIC PANELon 04-11 Albumin [Mass/Vol] 4.3 g/dL Normal 3.5-5.7 [facility] Comment on above: Performed By: #### 4 5506, 28847, 65606, 62977, 60117, 95469 #### [facility] [address] [place] [address], [facility] ALKALINE PHOSPH 115 IU/L High 34-104 [facility] Comment on above: Performed By: #### 4 5506, 91329, 68695, 67534, 95537, 88562 #### [facility] [address] [place] [address], [place] ALT [Catalytic activity/Vol] 16 U/L Normal 7-52 [facility] Comment on above: Performed By: #### 4 5506, 67675, 03881, 36762, 23397, 91756 #### [facility] [address] [place] [address], [place] AST [Catalytic activity/Vol] 15 U/L Normal 13-39 [facility] Comment on above: Performed By: #### 4 5506, 91919, 48472, 57843, 29521, 16542 #### [facility] [address] [place] [address], [place] Bilirubin [Mass/Vol] 0.6 mg/dL Normal 0.3-1.0 [facility] Comment on above: Performed By: #### 4 5506, 02119, 55857, 43464, 24490, 23700 #### [facility] [address] [place] [address], [place] Calcium [Mass/Vol] 10.3 mg/dL Normal 8.6-10.3 [facility] Comment on above: Performed By: #### 4 5506, 95307, 19072, 72666, 09458, 25179 #### [facility] [address] [place] [address], [place] Chloride [Moles/Vol] 97 mmol/L Low 98-107 [facility] Comment on above: Performed By: #### 4 5506, 42727, 60220, 72654, 03361, 57318 #### [facility] [address] [place] [address], [place] CO2 [Moles/Vol] 26 mmol/L Normal 21-31 [facility] Comment on above: Performed By: #### 4 5506, 50607, 40904, 17466, 22956, 68507 #### [facility] [address] [place] [address], [place] Creatinine [Mass/Vol] 0.93 mg/dL Normal 0.70-1.30 [facility] Comment on above: Performed By: #### 4 5506, 96121, 81407, 15633, 53289, 96965 #### [facility] [address] [place] [address], [place] GFR/1.73 sq M.predicted among blacks MDRD (S/P/Bld) [Vol rate/Area] mL/min/{1.73_m2} Normal >60 [facility] Comment on above: Performed By: #### 4 5506, 27477, 86932, 44561, 86147, 10505 #### [facility] [address] [place] [address], [place] GFR/1.73 sq M.predicted among non-blacks MDRD (S/P/Bld) [Vol rate/Area] mL/min/{1.73_m2} Normal >60 [facility] Comment on above: Performed By: #### 4 5506, 28306, 48640, 15402, 66612, 77547 #### [facility] [address] [place] [address], [place] Glucose [Mass/Vol] 136 mg/dL High 70-100 [facility] Comment on above: Performed By: #### 4 5506, 96380, 43918, 56162, 85093, 27347 #### [facility] [address] [place] [address], [place] Potassium [Moles/Vol] 5.2 mmol/L High 3.5-5.1 [facility] Comment on above: Performed By: #### 4 5506, 46163, 16851, 12048, 83990, 79943 #### [facility] [address] [place] [address], [facility] Protein [Mass/Vol] 6.7 g/dL Normal 6.0-8.3 [facility] Comment on above: Performed By: #### 4 5506, 05586, 10829, 97706, 63614, 48595 #### [facility] [address] [place] [address], [facility] Sodium [Moles/Vol] 129 mmol/L Low 136-145 [facility] Comment on above: Performed By: #### 4 5506, 71426, 53321, 61989, 44452, 95387 #### [facility] [address] [place] [address], [facility] Urea nitrogen [Mass/Vol] 10 mg/dL Normal 7-25 [facility] Comment on above: Performed By: #### 4 5506, 65400, 52001, 05431, 26158, 82916 #### [facility] [address] [place] [address], [facility] DIRECT BILIon 04-11-2021 Bilirubin.direct [Mass/Vol] 0.2 mg/dL Normal 0.0-0.2 [facility] Comment on above: Performed By: #### 4 5506, 68871, 48786, 41739, 85166, 15462 #### [facility] [address] [place] [address], [facility] LIPID PROFILEon 04-11-2021 Cholesterol [Mass/Vol] 84 mg/dL Low 120-200 [facility] Comment on above: Result Comment: CHOL ESTEROL REFERENCE RANGE: 20 YEARS AND OLDER CARDIOVASCULAR RISK Less than 200 mg/dl Low Risk 200 to 239 mg/dl Borderline Risk 240 mg/dl and greater High Risk Performed By: #### 4 5506, 85823, 79441, 09533, 91210, 33040 #### [facility] [address] [place] [address], [facility] Cholesterol in HDL [Mass/Vol] 41 mg/dL Normal 23-92 [facility] Comment on above: Result Comment: Slig ht variation in normal range could be due to gender and/or age. HDL CHOLESTEROL REFERENCE RANGE: 20 years and older Cardiovascular Risk > or =60 mg/dL Desirable 40 TO 59 mg/dL Low Risk <40 mg/dL High Risk Performed By: #### 4 5506, 04694, 57460, 02962, 65329, 75492 #### [facility] [address] [place] [address], [place] Cholesterol in LDL [Mass/Vol] 34 mg/dL Normal 0-130 [facility] Comment on above: Result Comment: LDL IS A CALCULATION LDL IS ONLY VALID IF THE TRIG IS LESS THAN 400. Performed By: #### 4 5506, 86271, 76308, 91879, 49855, 36342 #### [facility] [address] [place] [address], [facility] Cholesterol.total/Cho lesterol in HDL [Mass ratio] 2.0 {ratio} Normal .0-4.5 [facility] Comment on above: Performed By: #### 4 5506, 18656, 38183, 86887, 15409, 15386 #### [facility] [address] [place] [address], [facility] NON-HDL CHOLESTEROL 43 mg/dL Normal [facility] Comment on above: Performed By: #### 4 5506, 11184, 81035, 73774, 62940, 06144 #### [facility] [address] [place] [address], [place] Triglyceride [Mass/Vol] 47 mg/dL Normal 40-149 [facility] Comment on above: Result Comment: TRIG LYCERIDE REFERENCE RANGE: 20 YEARS AND OLDER CARDIOVASCULAR RISK LESS THAN 150 mg/dl LOW RISK 150 TO 199 mg/dl BORDERLINE RISK 200 mg/dl AND GREATER HIGH RISK Performed By: #### 4 5506, 13889, 42427, 20124, 67276, 39672 #### [facility] [address] [place] [address], [place] VLDL CHOL 9 mg/dL Normal 0-40 [facility] Comment on above: Performed By: #### 4 5506, 69206, 37393, 01709, 12781, 35845 #### [facility] [address] [place] [place] [address], [facility] MAGNESIUM BLOODon 04-11-2021 Magnesium [Mass/Vol] 1.3 mg/dL Low 1.9-2.7 [facility] Comment on above: Performed By: #### 4 5506, 51102, 97284, 94904, 52510, 68278 #### [facility] [address] [place] [address], [facility] PHOSPHORUS BLOODon Phosphate [Mass/Vol] 2.6 mg/dL Normal 2.5-5.0 [facility] Center Comment on above: Performed By: #### 4 5506, 97082, 00398, 75074, 57993, 14307 #### [facility] [address] TACROLIMUSon 04-11-2021 Tacrolimus (Bld) [Mass/Vol] 8.3 ng/mL Normal 5.0-20.0 [facility] Comment on above: Result Comment: The GARCIA PLATE [employer]LLER Tacrolimus assay is a delayed one-step immunoassay for the quantitative determination of tacrolimus in human whole blood using the chemiluminescent microparticle immunoassay (CMIA) technology with flexible assay protocols, referred to as Chemiflex. Performed By: #### 4 5506, 44921, 69213, 91020, 40528, 23975 #### [facility] [address] [place] [address], [facility] URIC ACID BLOODon 04-11-2021 Urate [Mass/Vol] 8.4 mg/dL High 4.4-7.6 [facility] Comment on above: Performed By: #### 4 5506, 60290, 59891, 23916, 29038, 91510 #### [facility] [address] [place], [place] [address] BK VIRUS QUANTITATION FOR PL ASMAon 02-16-2021 BKV Plasma Quantitation by PCR Not detected Normal [facility] Comment on above: Result Comment: Meth od: BK virus was measured by quantitative polymerase chain reaction using a fluorescent hydrolysis probe targeting the polyomavirus BK POLITICAL ORGANIZER-1 gene. The lower limit of quantitation of the assay is 500 copies of BK genome per milliliter of plasma or urine, and any detectable BK DNA below that level is reported as: Detected, <500 copies/ml. Serial BK virus measurement can be used to monitor disease activity. (Reference: Katina ramirezl. J CLIN MICRO 2004; 42:0724-4422). This test was developed and its performance characteristics determined by the [facility]. It has not been approved by the US Food and Drug Administration. However, such approval is not required for clinical implementation, and test results have been shown to be clinically useful. This laboratory is CAP accredited and CLIA certified to perform high complexity testing. Performed By: #### 4 5506, 90592, 75803, 09813, 97601, 37971 #### [facility] [address] BKV Plasma Quantitation Log by PCR Not detected Normal [facility] Comment on above: Performed By: #### 4 5506, 95014, 59524, 52364, 25521, 98014 #### [facility] [address] CBC W/DIFFon 02-16-2021 ABS IMM GRANS 0.1 10*3/uL Normal 0.0-0.2 [facility] Comment on above: Performed By: #### 4 5506, 87414, 21499, 22189, 51263, 60480 #### [facility] [address] ABS NEUTROPHILS 5.8 10*3/uL Normal 1.6-7.6 [facility] Comment on above: Performed By: #### 4 5506, 45487, 67171, 92687, 14237, 41864 #### [facility] [address] [place] [address], [facility] Basophils (Bld) [#/Vol] 0.0 10*3/uL Normal 0.0-0.2 [facility] Comment on above: Performed By: #### 4 5506, 14920, 17941, 73556, 20222, 89732 #### [facility] [address] [place] [address], [facility] Basophils/100 WBC (Bld) 0.4 % Normal 0.0-1.0 [facility] Comment on above: Performed By: #### 4 5506, 55747, 08257, 80471, 80564, 67697 #### [facility] [address] [facility] [place] [address], [facility] Eosinophils (Bld) [#/Vol] 0.3 10*3/uL Normal 0.0-0.5 [facility] Comment on above: Performed By: #### 4 5506, 03397, 52806, 86894, 55167, 44197 #### [facility] [address] [facility] [place] [address], [facility] Eosinophils/100 WBC (Bld) 3.5 % Normal 0.0-6.0 [facility] Comment on above: Performed By: #### 4 5506, 55995, 91336, 08816, 50067, 06315 #### [facility] [address] [facility] [place] [address], [facility] Erythrocyte distribution width (RBC) [Ratio] 13.6 % Normal 11.5-15.0 [facility] Comment on above: Performed By: #### 4 5506, 39663, 12462, 06892, 39595, 90062 #### [facility] [address] [place] [address], [facility] Hematocrit (Bld) [Volume fraction] 34.1 % Low 39.0-50.0 [facility] Comment on above: Performed By: #### 4 5506, 26212, 35782, 07436, 47017, 46989 #### [facility] [address] [place] [address], [facility] Hemoglobin (Bld) [Mass/Vol] 11.6 g/dL Low 13.0-17.0 [facility] Comment on above: Performed By: #### 4 5506, 18975, 92011, 63980, 40828, 88944 #### [facility] [address] [place] [address], [facility] IMMATURE GRANS 0.8 % Normal 0.0-1.0 [facility] Comment on above: Performed By: #### 4 5506, 65326, 60192, 91432, 12901, 07589 #### [facility] [address] [facility] [place] [address], [facility] Lymphocytes (Bld) [#/Vol] 0.7 10*3/uL Low 1.2-4.0 [facility] Comment on above: Performed By: #### 4 5506, 47207, 71004, 68638, 80656, 14659 #### [facility] [address] [facility] [place] [address], [facility] Lymphocytes/100 WBC (Bld) 9.2 % Low 20.0-45.0 [facility] Comment on above: Performed By: #### 4 5506, 30816, 25014, 16952, 24207, 68648 #### [facility] [address] [facility] [place] [address], [facility] MCH (RBC) [Entitic mass] 29.5 pg Normal 27.0-33.0 [facility] Comment on above: Performed By: #### 4 5506, 94035, 15197, 48299, 50980, 22207 #### [facility] [address] [place] [address], [facility] MCHC (RBC) [Mass/Vol] 34.0 g/dL Normal 32.0-35.0 [facility] Comment on above: Performed By: #### 4 5506, 62630, 88313, 99740, 50419, 50689 #### [facility] [address] [facility]. [address] MCV (RBC) [Entitic vol] 86.8 fL Normal 82.0-98.0 [facility] Comment on above: Performed By: #### 4 5506, 18777, 59867, 27005, 18229, 31421 #### [facility] [address] Monocytes (Bld) [#/Vol] 0.8 10*3/uL Normal 0.1-1.0 [facility] Comment on above: Performed By: #### 4 5506, 71632, 93758, 28157, 34414, 37106 #### [facility] [address] [facility]. [address] MONOS 10.3 % Normal 5.0-12.0 [facility] Comment on above: Performed By: #### 4 5506, 18191, 92052, 98411, 24158, 16480 #### [facility] [address] Neutrophils/100 WBC (Bld) 75.8 % High 40.0-72.0 [facility] Comment on above: Performed By: #### 4 5506, 01492, 10278, 95395, 56335, 04992 #### [facility] [address] Nucleated RBC/100 WBC (Bld) [Ratio] 0 % Normal 0-0 [facility] Comment on above: Performed By: #### 4 5506, 17120, 38756, 99619, 00515, 65484 #### [facility] [address] [facility] [place] [address], [facility] PLAT CNT 256 10*3/uL Normal 150-400 [facility] Comment on above: Performed By: #### 4 5506, 24310, 45570, 56119, 71723, 10616 #### [facility] [address] [place] [address], [facility] RBC (Bld) [#/Vol] 3.93 10*6/uL Low 4.20-5.70 [facility] Comment on above: Performed By: #### 4 5506, 50851, 97229, 69330, 53776, 79098 #### [facility] [address] [place] [address], [facility] WBC (Bld) [#/Vol] 7.65 10*3/uL Normal 4.00-10.60 [facility] Comment on above: Performed By: #### 4 5506, 48872, 27850, 79185, 53145, 49405 #### [facility] [address] COMP METABOLIC PANELon 02-16 Albumin [Mass/Vol] 4.6 g/dL Normal 3.5-5.7 [facility] Comment on above: Performed By: #### 0 0121, 82964, 62270, 13285, 81114, 79337, 64875, 91021 #### [facility] [address] [facility] [place] [address], [facility] ALKALINE PHOSPH 136 IU/L High 34-104 [facility] Comment on above: Performed By: #### 0 0121, 30313, 62001, 51803, 32918, 41976, 40638, 56423 #### [facility] [address] [place] [address], [facility] ALT [Catalytic activity/Vol] 22 U/L Normal 7-52 [facility] Comment on above: Performed By: #### 0 0121, 16542, 64345, 87710, 81189, 64920, 17401, 21265 #### [facility] [address] [place] [address], [facility] AST [Catalytic activity/Vol] 18 U/L Normal 13-39 [facility] Comment on above: Performed By: #### 0 0121, 34613, 64354, 41701, 32221, 34071, 74023, 93284 #### [facility] [address] [place] [address], [place] Bilirubin [Mass/Vol] 0.5 mg/dL Normal 0.3-1.0 [facility] Comment on above: Performed By: #### 0 0121, 44850, 61473, 11229, 02322, 15483, 05869, 45930 #### [facility] [address] [place] [address], [place] Calcium [Mass/Vol] 10.5 mg/dL High 8.6-10.3 [facility] Comment on above: Performed By: #### 0 0121, 20938, 53602, 68601, 02013, 53808, 87018, 36111 #### [facility] [address] [place] [address], [place] Chloride [Moles/Vol] 94 mmol/L Low 98-107 [facility] Comment on above: Performed By: #### 0 0121, 64566, 34406, 77973, 94756, 62217, 73399, 58690 #### [facility] [address] [place] [address], [place] CO2 [Moles/Vol] 28 mmol/L Normal 21-31 [facility] Comment on above: Performed By: #### 0 0121, 46390, 50859, 02931, 14236, 98849, 68263, 52470 #### [facility] [address] [place] [address], [place] Creatinine [Mass/Vol] 0.93 mg/dL Normal 0.70-1.30 [facility] Comment on above: Performed By: #### 0 0121, 70619, 23454, 98598, 18922, 44046, 55470, 39139 #### [facility] [address] [place] [address], [place] GFR/1.73 sq M.predicted among blacks MDRD (S/P/Bld) [Vol rate/Area] mL/min/{1.73_m2} Normal >60 [facility] Comment on above: Performed By: #### 0 0121, 23788, 42339, 29938, 11542, 83818, 96269, 32934 #### [facility] [address] [place] [address], [place] GFR/1.73 sq M.predicted among non-blacks MDRD (S/P/Bld) [Vol rate/Area] mL/min/{1.73_m2} Normal >60 [facility] Comment on above: Performed By: #### 0 0121, 19958, 22933, 17048, 16784, 29989, 40398, 86854 #### [facility] [address] [place] [address], [place] Glucose [Mass/Vol] 147 mg/dL High 70-100 [facility] Comment on above: Performed By: #### 0 0121, 62348, 25596, 31342, 35271, 31691, 17448, 11919 #### [facility] [address] [place] [address], [place] Potassium [Moles/Vol] 4.6 mmol/L Normal 3.5-5.1 [facility] Comment on above: Performed By: #### 0 0121, 33241, 50923, 25730, 16973, 10911, 95530, 51362 #### [facility] [address] [place] [address], [place] Protein [Mass/Vol] 7.2 g/dL Normal 6.0-8.3 [facility] Comment on above: Performed By: #### 0 0121, 89914, 64480, 86938, 96905, 71731, 89366, 21313 #### [facility] [address] [place] [address], [facility] Sodium [Moles/Vol] 129 mmol/L Low 136-145 [facility] Comment on above: Performed By: #### 0 0121, 40496, 73914, 65151, 65578, 59709, 99433, 17946 #### [facility] [address] [place] [address], [facility] Urea nitrogen [Mass/Vol] 15 mg/dL Normal 7-25 [facility] Comment on above: Performed By: #### 0 0121, 22956, 82202, 43317, 46321, 10525, 96044, 07392 #### [facility] [address] [place] [address], [facility] DIRECT BILIon 02-16-2021 Bilirubin.direct [Mass/Vol] 0.2 mg/dL Normal 0.0-0.2 [facility] Comment on above: Performed By: #### 4 5506, 72383, 75752, 87943, 76358, 93682 #### [facility] [address] [place] [address], [facility] HEMOGLOBIN A1Con 02-16-2021 Glucose [Moles/Vol] 154 mmol/L Normal [facility] Comment on above: Performed By: #### 4 5506, 69923, 85978, 73291, 95092, 51115 #### [facility] [address] [place] [address], [facility] HbA1c (Bld) [Mass fraction] 7.0 % High 4.0-6.0 [facility] Comment on above: Performed By: #### 4 5506, 09323, 10340, 89629, 27957, 69895 #### [facility] [address] [place] [address], [facility] LIPID PROFILEon 02-16-2021 Cholesterol [Mass/Vol] 78 mg/dL Low 120-200 [facility] Comment on above: Result Comment: CHOL ESTEROL REFERENCE RANGE: 20 YEARS AND OLDER CARDIOVASCULAR RISK Less than 200 mg/dl Low Risk 200 to 239 mg/dl Borderline Risk 240 mg/dl and greater High Risk Performed By: #### 0 0121, 15428, 50573, 88328, 92074, 22327, 08271, 53619 #### [facility] [address] [place] [address], [place] Cholesterol in HDL [Mass/Vol] 41 mg/dL Normal 23-92 [facility] Comment on above: Result Comment: Slig ht variation in normal range could be due to gender and/or age. HDL CHOLESTEROL REFERENCE RANGE: 20 years and older Cardiovascular Risk > or =60 mg/dL Desirable 40 TO 59 mg/dL Low Risk <40 mg/dL High Risk Performed By: #### 0 0121, 68388, 08919, 29980, 61002, 61606, 25084, 28957 #### [facility] [address] [place] [address], [place] Cholesterol in LDL [Mass/Vol] 28 mg/dL Normal 0-130 [facility] Comment on above: Result Comment: LDL IS A CALCULATION LDL IS ONLY VALID IF THE TRIG IS LESS THAN 400. Performed By: #### 0 0121, 72341, 33418, 08451, 82646, 82785, 23900, 31753 #### [facility] [address] [place] [address], [place] Cholesterol.total/Cho lesterol in HDL [Mass ratio] 1.9 {ratio} Normal .0-4.5 [facility] Comment on above: Performed By: #### 0 0121, 23973, 52464, 12594, 82907, 84069, 55519, 09658 #### [facility] [address] [place] [address], [place] NON-HDL CHOLESTEROL 37 mg/dL Normal [facility] Comment on above: Performed By: #### 0 0121, 64668, 22225, 47789, 24669, 12103, 31924, 75981 #### [facility] [address] [place] [address], [facility] Triglyceride [Mass/Vol] 44 mg/dL Normal 40-149 [facility] Comment on above: Result Comment: TRIG LYCERIDE REFERENCE RANGE: 20 YEARS AND OLDER CARDIOVASCULAR RISK LESS THAN 150 mg/dl LOW RISK 150 TO 199 mg/dl BORDERLINE RISK 200 mg/dl AND GREATER HIGH RISK Performed By: #### 0 0121, 29405, 27810, 95421, 78260, 99684, 67645, 04895 #### [facility] [address] [place] [address], [facility] VLDL CHOL 9 mg/dL Normal 0-40 [facility] Comment on above: Performed By: #### 0 0121, 78647, 85624, 36360, 19728, 86970, 42658, 71928 #### [facility] [address] [place] [address], [facility] MAGNESIUM BLOODon 02-16-2021 Magnesium [Mass/Vol] 1.5 mg/dL Low 1.9-2.7 [facility] Comment on above: Performed By: #### 4 5506, 79894, 56592, 67277, 35726, 80051 #### [facility] [address] [place] [address], [facility] PHOSPHORUS BLOODon Phosphate [Mass/Vol] 2.4 mg/dL Low 2.5-5.0 [facility] Comment on above: Performed By: #### 0 0121, 98800, 97477, 43693, 65166, 92273, 10643, 02442 #### [facility] [address] [place] [address], [facility] PROSPERAon 02-16-2021 PROSPERA KIT Results to be mailed directly to physician's office by reference lab. Normal [facility] Comment on above: Result Comment: Test performed by [id number] [place] [id number] No result expected. For billing and tracking purposes only. Specimen collected for transplant patient and sent to requesting hospital per Dr instructions. No charge. Performed By: #### 4 5506, 48948, 04626, 12988, 22573, 88099 #### [facility] [address] RESULT Results to be mailed directly to physician's office by reference lab. Normal [facility] Comment on above: Performed By: #### 4 5506, 19182, 22174, 99434, 82975, 01652 #### [facility] [address] PTH INTACTon 02-16-2021 PTH INTACT 123 pg/mL High 12-88 [facility] Comment on above: Performed By: #### 4 5506, 57177, 35935, 48040, 66954, 15980 #### [facility] [address] [facility] [address] SINGLE ANTIGEN CLASS 1on METHOD Class I Single Antigen Normal [facility] Comment on above: Order Comment: Some [...] to frequency. Performed By: #### 4 5506, 24681, 18316, 28453, 13887, 17494 #### [facility] [address] [place] [address], [facility] SINGLE ANTIGEN CLASS 2on COMMENTS Normal [facility] Comment on above: Order Comment: Some [...] Antigen Microbeads Performed By: #### 4 5506, 25760, 23259, 45540, 07635, 44069 #### [facility] [address] Result Comment: No C lass I donor specific antibody identified Class I Antigen Microbeads METHOD Class II Single Antigen Normal [facility] Comment on above: Order Comment: Some [...] to frequency. Performed By: #### 4 5506, 28692, 87688, 20121, 14931, 15954 #### [facility] [address] [facility] [place] [address], [facility] SIGNED BY Normal [facility] Comment on above: Order Comment: Some [...] frequency. Result Comment: Jose A Lara MS,CHT(IRINEO),MT(ASCP) Industrial Hygiene Engineer, Transplant Immunology Performed By: #### 4 5506, 00272, 54998, 22186, 23066, 86664 #### [facility] [address] [place] [address], [facility] TACROLIMUSon 02-16-2021 Tacrolimus (Bld) [Mass/Vol] 7.0 ng/mL Normal 5.0-20.0 [facility] Comment on above: Result Comment: The [employer] Tacrolimus assay is a delayed one-step immunoassay for the quantitative determination of tacrolimus in human whole blood using the chemiluminescent microparticle immunoassay (CMIA) technology with flexible assay protocols, referred to as Chemiflex. Performed By: #### 4 5506, 42975, 52517, 89533, 59162, 86035 #### [facility] [address] [place] [address], [facility] TESTOSTERONE, FREE+SHBG+TOTA L ILon 02-16-2021 [place] Normal [facility] Comment on above: Result Comment: Test Performed by [facility] [address] [place] [address] - Released 02/16/2021 18:49 SEX HORM BIND GLOB 52 nmol/L Normal 11-80 [facility] Testosterone [Mass/Vol] 399 ng/dL Normal 220-1000 [facility] TESTOSTERONE, FREE 60.0 pg/mL Normal 47-244 [facility] Comment on above: Result Comment: The concentration of free testosterone is derived from a mathematical expression based on the constant for the binding of testosterone to albumin and/or sex hormone binding globulin. URIC ACID BLOODon 02-16-2021 Urate [Mass/Vol] 8.0 mg/dL High 4.4-7.6 [facility] Comment on above: Performed By: #### 0 0121, 33719, 06644, 26248, 23272, 98617, 59757, 26503 #### [facility] [address] [place] [address], [facility] VITAMIN D 25-HYDROXYon 02-16 VITAMIN D 25-OH 35.1 ng/mL Normal 30.0-80.0 [facility] Comment on above: Result Comment: >80. 0 Toxicity possible Performed By: #### 4 5506, 63370, 19093, 60455, 75166, 79404 #### [facility] [address] Vital Signs Date Time Vital Sign Value Performing Clinician Facility 02-16-2024 08:19-0400 Body height 167.6 cm Jericho Mccarthy MD Work Phone: [facility] 02-16-2024 08:19-0400 Body mass index (BMI) [Ratio] 24.37 kg/m2 Jericho Mccarthy MD Work Phone: [facility] 02-16-2024 08:19-0400 Body temperature 97.5 [degF] Jericho Mccarthy MD Work Phone: [facility] 02-16-2024 08:19-0400 Body weight 68.49 kg Jericho Mccarthy MD Work Phone: [facility] 02-16-2024 08:19-0400 Diastolic blood pressure 60 mm[Hg] Jericho Mccarthy MD Work Phone: [facility] 02-16-2024 08:19-0400 Heart rate 57 /min Jericho Mccarthy MD Work Phone: [facility] 02-16-2024 08:19-0400 Respiratory rate 18 /min Jericho Mccarthy MD Work Phone: [facility] 02-16-2024 08:19-0400 SaO2% (BldA) [Mass fraction] 98 % Jericho Mccarthy MD Work Phone: [facility] 02-16-2024 08:19-0400 Systolic blood pressure 120 mm[Hg] Jericho Mccarthy MD Work Phone: [facility] 03-05-2022 09:30-0400 Diastolic blood pressure 74 mm[Hg] MD Jericho Mccarthy Work Phone: [facility] 03-05-2022 09:30-0400 Heart rate 58 /min MD Jericho Mccarthy Work Phone: [facility] 03-05-2022 09:30-0400 Respiratory rate 18 /min MD Jericho Mccarthy Work Phone: [facility] 03-05-2022 09:30-0400 SaO2% (BldA) [Mass fraction] 99 % MD Jericho Mccarthy Work Phone: [facility] 03-05-2022 09:30-0400 Systolic blood pressure 133 mm[Hg] MD Jericho Mccarthy Work Phone: [facility] 03-05-2022 07:01-0400 Body height 167.64 cm MD Jericho Mccarthy Work Phone: [facility] 03-05-2022 07:01-0400 Body temperature 97.9 [degF] MD Jericho Mccarthy Work Phone: [facility] 03-05-2022 07:01-0400 Body weight 74.84 kg MD Jerihco Mccarthy Work Phone: [facility] 01-21-2022 10:30-0400 Body height 167.64 cm Tj Wells Other [employer] Other 01-21-2022 10:30-0400 Body mass index (BMI) [Ratio] 26.47 kg/m2 Tj Wells Other [employer] Other 01-21-2022 10:30-0400 Body weight 74.39 kg Tj Wells Other [employer] Other 01-21-2022 10:30-0400 Diastolic blood pressure 71 mm[Hg] Tj Wells Other [employer] Other 01-21-2022 10:30-0400 Systolic blood pressure 148 mm[Hg] Tj Wells Other [employer] Other Encounters Encounter Date Encounter Type Care Provider Facility Start: 03-11-2024 End: 03-11-2024 Clinis[facility] Result Encounter Generic External Data Provider [facility] External Department Unsolicited Start: 03-11-2024 End: 03-11-2024 [facility] Result Encounter Generic External Data Provider [facility] External Department Unsolicited Start: 02-16-2024 End: 02-16-2024 Bamboo flowsheet Jericho Mccarthy MD Work Phone: [facility] Start: 02-16-2024 End: 02-16-2024 Bamboo flowsheet Jericho Mccarthy MD Work Phone: [facility] Start: 02-16-2024 End: 02-16-2024 Office outpatient visit 15 minutes Jericho Mccarthy MD Work Phone: [facility] Comment on above: Type 2 diabetes [...] Available Start: 02-11-2024 End: 02-11-2024 ambulatory [facility] Start: 02-02-2024 End: 02-02-2024 ambulatory RAJESH TRAORE Not Available Start: 10-31-2023 End: 10-31-2023 ambulatory [facility] Start: 08-25-2023 End: 08-25-2023 ambulatory JERICHO MCCARTHY Not Available Start: 07-09-2023 End: 07-09-2023 ambulatory PRICE MARTINES [facility] Start: 05-22-2023 End: 05-22-2023 ambulatory JERICHO MCCARTHY Not Available Start: 05-19-2023 End: 05-19-2023 ambulatory JERICHO ABAD [facility] Start: 04-28-2023 Evaluation and management of inpatient [place] [facility] Start: 04-28-2023 Evaluation and management of inpatient PATRICIA SCHULZ [facility] Start: 04-27-2023 End: 04-30-2023 Evaluation and management of inpatient MENDY CLEMONS [facility] Start: 04-22-2023 End: 04-22-2023 ambulatory BENJA MCGHEE [facility] Start: 10-03-2022 End: 10-04-[address] [...] Start: 03-05-2022 End: 03-05-2022 ambulatory Tj Wells Facility:[facility] Start: 03-05-2022 End: 03-05-2022 Admission to same day surgery center MD Jericho Mccarthy Work Phone: [facility] Start: 03-05-2022 End: 03-05-2022 ambulatory MD Jericho Mccarthy Work Phone: [facility] Work Phone: Start: 03-01-2022 End: 03-01-2022 ambulatory Tj Wells Facility:[facility] Start: 03-01-2022 End: 03-01-2022 ambulatory MD Jericho Mccarthy Work Phone: [facility] Work Phone: Start: 03-01-2022 End: 03-01-2022 Patient encounter procedure MD Jericho Mccarthy Work Phone: [facility] Start: 02-01-2022 End: 02-02-[address] DOCTOR MCCABE Facility:[facility] Start: 01-21-2022 End: 01-21-2022 ambulatory Tj Wells Other [employer] Other Start: 01-21-2022 Office outpatient ne w 45 minutes Tj Wells [facility] Start: 01-04-2022 End: 01-05-[address] NAGA BOSCH Facility:[facility] Start: 11-30-2021 End: 12-01-[address] DOCTOR MCCABE Facility:[facility] Start: 11-14-2021 End: 11-14-[address] JERICHO MCCARTHY Facility:[facility] Procedures Date Procedure Procedure Detail Performing Clinician Start: 03-11-2024 ALL CBC WITH AUTO DIFF Generic External Data Provider Start: 04-16-2023 End: 08-25-2023 History of renal [...] Screening for malign ant neoplasm of colon [facility] Start: 11-25-2025 Glaucoma screening Diabetes: R etinopathy Screening [facility] Start: 08-10-2025 Urine screening for protein Diabetes: Urine Protein Screening [facility] Comment on above: Postponed from 07/09 (Other Medical Reasons) Start: 02-03-2025 End: 09-25-2025 Patient encounter procedure 02/03/2025 9:00 AM EDT Office Visit [facility] [address] [place] [id number] Rajesh Traore MD [address] [place] [address] [facility] Start: 08-05-2024 Hemoglobin A1c measurement Diabetes: Hemoglobin A1C [facility] Start: 03-11-2024 End: 03-11-2024 Patient encounter procedure 03/11/2024 9:15 AM EDT Office Visit [facility] [address] [place] [address] Jericho Mccarthy MD [address] [place] [phone] [facility] Start: 02-16-2024 End: 02-16-2024 Patient encounter procedure 02/16/2024 8:15 AM EDT Office Visit [facility] [address] [place] [address] Jericho Mccarthy MD [address] [place] [phone] Arrived [facility] Comment on above: Arrived Start: 01-11-2024 Influenza vaccination Influenza Vacc ine (#1) [facility] Start: 10-07-2023 Hemoglobin A1c measurement Diabetes: Hemoglobin A1C [facility] Start: 03-05-2022 [facility] Start: 01-31-2017 Pneumococcal Vaccine : 65+ Years (2 of 2 - PCV) Pneumococcal Vaccine: 65+ Years (2 of 2 - PCV) [facility] Start: 1950 Medicare Annual Wellness (AWV) Medicare Annual Wellness (AWV) [facility] Start: 1950 Screening for malign ant neoplasm of colon [facility] Patient Education [facility] Work Phone: Immunizations Immunization Date Immunization Notes Care Provider Fa cility 02-18-2023 Influenza, High-dose Seasonal, Quadrivalent, Preservative Free Jericho Mccarthy MD Work Phone: [facility] 02-18-2023 influenza virus vaccine, unspecified formulation Jericho Mccarthy MD Work Phone: [facility] 04-30-2021 COVID-19 mRNA Bivale nt Booster (Pfizer) MD Jericho Mccarthy Work Phone: [facility] 04-30-2021 Influenza, Seasonal, Quadrivalent, Adjuvanted Jericho Mccarthy MD Work Phone: [facility] 08-01-2020 COVID-19 mRNA, Comirnaty (Pfizer) MD Jericho Mccarthy Work Phone: [facility] 07-12-2020 COVID-19 mRNA, Comirnaty (Pfizer) MD Jericho Mccarthy Work Phone: [facility] 02-09-2019 influenza, injectabl e, quadrivalent, contains preservative Jericho Mccarthy MD Work Phone: [facility] 02-13-2017 influenza, seasonal, injectable Tj Wells Other [employer] Other 02-09-2017 influenza virus vaccine, unspecified formulation Jericho Mccarthy MD Work Phone: [facility] 06-27-2016 influenza, seasonal, injectable Tj Wells Other [employer] Other 02-01-2016 pneumococcal polysaccharide vaccine, 23 valent Tj Wells Other [facility] [employer] Other Payers Date Payer Category Payer Private Health Insurance [id number] 2022 Private Health Insurance [id number] 2022 Unknown [facility] [employer] [id number] 2022-Present [address] [place] [address] [id number] 2022 Self-pay [id number] 2022 Unknown [id number] 2009 Medicare [id number] 1959 Medicare [id number] 1959 Private Health Insurance [id number] [id number] 1951 Unknown [id number] 2.16.840.1.707184.3.579.2 .593 1951 Unknown [id number] 2.16.840.1.782979.3.579.2 .593 1951 Unknown [id number] 2.16.840.1.950842.3.579.2 .593 1951 Unknown [id number] 2.16.840.1.184969.3.579.2 .593 1951 Unknown [id number] 2.16.840.1.127264.3.579.2 .593 1951 Unknown [id number] 2.16.840.1.446347.3.579.2 .593 1951 Unknown [id number] 2.16.840.1.594000.3.579.2 .593 1951 Unknown [id number] 2.16.840.1.911722.3.579.2 .593 1951 Unknown [id number] 2.16.840.1.835931.3.579.2 .593 1951 Unknown [id number] 2.16.840.1.641685.3.579.2 .593 1951 Unknown [id number] 2.16.840.1.679305.3.579.2 .593 1951 Unknown [id number] 2.16.840.1.717111.3.579.2 .593 1951 Unknown [id number] 2.16.840.1.143591.3.579.2 .1259 1951 Unknown [id number] 2.16.840.1.751508.3.579.2 .1259 1951 Unknown [id number] 2.16.840.1.411408.3.579.2 .1259 1951 Unknown [id number] 2.16.840.1.578563.3.579.2 .1259 Unknown [id number] 2.16.840.1.344704.3.579.2 .531 Unknown [id number] 2.16.840.1.576668.3.579.2 .531 Social History Date Type Detail Facility Unknown if ever smoked [employer] Other Start: 02-02-2024 End: 02-16-2024 Sex Assigned At [place] [employer] Other Start: 11-11-2019 End: 04-15-2023 Tobacco smoking status [place] Ex-smoker (finding) [facility] Start: 1950 Sex Assigned At Male F [facility] Start: 05-12-1980 End: 05-12-1992 History of tobacco use Current smoker [facility] Start: 05-12-1980 End: 05-12-1992 History of tobacco use Cigarette Smoker [facility] Start: 04-15-2023 Tobacco use and exposure Smokeless tobacco non-user [facility] Start: 02-02-2024 End: 02-16-2024 History of Social function [facility] Start: 1950 Sex assigned at Not on file [facility] Medical Equipment Procedure Code Equipment Code Equipment Original Text Equipment Identifier Dates Creation or revision of arteriovenous fistula GRAFT ARTEGRAFT 6MM X 40CM FDA Start: 01-14-2017 Creation or revision of arteriovenous fistula GRAFT ARTEGRAFT 6MM X 40CM FDA Start: 01-14-2017 Goals Date Patient Goal Desired Activity /State Clinical Notes 09-09-2009 to 02-16-2024 Jericho Mccarthy MD - 02/16/2024 8:49 AM EDAva Mccarthy MD - 02/16/2024 8:49 AM Donna Mccarthy MD - 02/16/2024 8:48 AM EDAva Mccarthy MD - 02/16/2024 8:15 AM EDT Note Date & Type Note Facility 02-16-2024 History of Present illness Narrative Associated Problem(s): Peripheral vascular disease ([facility]/HCC) Follow with specialists. Associated Problem(s): Type 2 diabetes mellitus with hyperglycemia, with long-term current use of insulin ([facility]) BS controlled and at times low. A1C 5.6 and decrease basaglar to 15 units daily. Stick to ADA diet and limit carbs. Associated Problem(s): Essential hypertension, benign ([facility]/HCC) BP controlled and monitor PRN. Images [...] 100 UNIT/ML pen documented in this encounter [facility] 01-19-2024 Note Mg 1.2 reviewed with PRUDENCIO Chou. Patient was previously refusing infusion for Magnesium and note from visit 10/30 was not complete. Per PRUDENCIO Chou on [employer] secure chat patient is to be on Amiliride 5mg daily, take Maalox and Mylanta with Mg. Phone call to patient who had stopped Amiliride in error and has been continuing to take Amlodipine which was discontinued. Patient requested script for Amiliride to be sent to [facility] in [place]. Reviewed magnesium rich foods with patient. Patient also states he is taking 2400 mg of magnesium daily. Instructed patient to get repeat labs this month. Patient verbalizes understanding. Also mailed standing lab order for monthly BK to patient to have added to standing labs. [facility] 10-31-2023 Note Patient notified abo ut mag level of 1.3, he stated he saw the TELLER here today and came up with a plan because he does not want an infusion. [facility] 10-31-2023 Note Transplant Clinic Patient : Roger [...] DM next week. Instructed patient to consider Client Services Specialist locally to him: quan del castillo. Pt [...] 0837 CALCIUM 9.1 (more content not included)... [facility] 07-09-2023 Note 07/10/23 Chief Complaint Patient presents with Kidney Follow-up Patient has no major concerns today PCP: Jericho Mccarthy MD Txp Referring: Preferred Pharmacy: [id number] - [place], [place] - [address] [address] [facility] [place] - [address] [facility] [address] [facility] [address] [place] [address] [address] [place] [address] Subjective Visit Vitals BP 124/56 (BP Location: [...] Dose Status aMILoride (Midamor) 5 mg tablet [id number] No Take 5 mg by mouth in the morning. Historical Provider, Not Taking Flag for Review aMILoride (Midamor) 5 mg tablet [id number] Yes Take 1 tablet (5 mg) by mouth in the morning. Jericho Abad NP Taking Active amLODIPine (Norvasc) 10 mg tablet [id number] Yes Take 1 tablet (10 mg) by mouth in the morning. Benja Mcghee MD Taking Active atorvastatin (Lipitor) 10 mg tablet [id number] Yes Take 1 tablet (10 mg) by mouth every other day. Gita Egan NP Taking Active blood-glucose meter [facility] [id number] Yes Test daily before all meals/snacks and once before bedtime. With 100 lancets and strips Esther Garduno MD Taking Active carvedilol (Coreg) 12.5 mg tablet [id number] Yes Take 1 tablet (12.5 mg) by mouth with breakfast and with evening meal. Gita Egan NP Taking Active cinacalcet (Sensipar) 30 mg tablet [id number] Yes Take 1 tablet every day by oral route. Praveena Cohen MD Taking Active furosemide (Lasix) 20 mg tablet [id number] Yes take 1 tablet by mouth once daily Naga Bosch MD Taking Active insulin glargine (Lantus Solostar U-100 Insulin) 100 unit/mL (3 mL) injection pen [id number] Yes Inject 20 Units under the skin at bedtime. Esther Garduno MD Taking Active isopropyl alcohoL 70 % towelette [id number] Yes Test daily before all meals/snacks and once before bedtime. Esther Garduno MD Taking Active lisinopril 20 mg tablet [id number] Yes Take 1 tablet (20 mg) by mouth in the morning. Benja Mcghee MD Taking Active magnesium oxide (Mag-Ox) 400 mg (241.3 mg magnesium) tablet [id number] Yes Take 2 tablets (800 mg) by mouth in the morning, at noon, and at bedtime. take 2 tablets by mouth three times a day with meals Jericho Abad NP Taking Active metFORMIN (Glucophage) 500 mg tablet [id number] Yes Take 1 tablet (500 mg) by mouth with breakfast and with evening meal. Esther Garduno MD Taking Active mycophenolate (Myfortic) 180 mg EC tablet [id number] Yes Take 4 tablets (720 mg) by mouth in the morning and at bedtime. Jericho Abad NP Taking Active omeprazole OTC (PriLOSEC OTC) 20 mg EC tablet [id number] Yes Take 1 tablet (20 mg) by mouth before breakfast. Do not crush, chew, or split. Esther Garduno MD Taking Active pen needle, diabetic 31 gauge x 5/16 needle [id number] Yes Use to inject 1-4 times daily as directed. Esther Garduno MD Taking Active sildenafil (Revatio) 20 mg tablet [id number] Yes Take 1 tablet 3 times a day by oral route for 90 days. Benja Mcghee MD Taking Active sulfaSALAzine (Azulfidine) 500 mg EC tablet [id number] Yes Take 500 mg by mouth in the morning and at bedtime. Dane Kerr MD Taking Active tacrolimus (Prograf) 0.5 mg capsule [id number] Yes Take 1 capsule (0.5 mg) by [...] failure (CMS/HCC) Coronary atherosclerosis End-stage renal disease ([facility]/HCC) History of renal transplant Peripheral vascular disease ([facility]) Increased infection risk status post immunosuppressive therapy Multiple congenital cysts of kidney Moderate mixed hyperlipidemia not requiring statin therapy COLD (chronic obstructive lung disease) ([facility]) Essential hypertension, benign Pleurisy with effusion Polycystic kidney DAVID (acute kidney injury) ([facility]) Hypomagnesemia Family History Problem Relation Name Age of Onset Diabetes Mother Hyperten (more content not included)... [facility] 07-08-2023 Note Left message for pat ient to take one extra lasix 20 mg today and we will retest tomorrow. Per Dr Martines po. [facility] 07-08-[address] dk dhaliwal, patient added to Dr Moya schedule tomorrow am due to critical low sodium level of 124. Patient notified and will arrive between 8:30 am and 9 am for labs. [facility] 05-19-2023 Note Per phone order of Petr woo MD, Mag IV 3 grams ordered Mag 1.3. BOP notified. Pt notified by phone, states he recently resumed the Amiloride. He is not certain he will agree to return for the infusion. States he reviewed the low Mag level today with Jericho Doran TELLER and was taking 8-9 tablets daily but is now reducing to Mag Oxide 800mg TID. [facility] 05-19-2023 Note 05/19/23 Chief Complaint Patient presents with Kidney Follow-up No concerns PCP: Jericho Mccarthy MD Txp Referring: Preferred Pharmacy: [id number] - [place], [place] - [address] [address] [facility] [place] - [address] [address] [facility] [address] [facility] [address] [facility] [address] [place] [address] [address] [place] [address] Subjective Visit Vitals BP 120/62 (BP Location: [...] Dose Status aMILoride (Midamor) 5 mg tablet [id number] Yes Take 5 mg by mouth in the morning. Historical Provider, Taking Active amLODIPine (Norvasc) 10 mg tablet [id number] Yes Take 1 tablet (10 mg) by mouth in the morning. Benja Mcghee MD Taking Active atorvastatin (Lipitor) 10 mg tablet [id number] Yes Take 1 tablet (10 mg) by mouth every other day. Gita Egan NP Taking Active [facility] [id number] Yes Test daily before all meals/snacks and once before bedtime. With 100 lancets and strips Esther Garduno MD Taking Active carvedilol (Coreg) 12.5 mg tablet [id number] Yes Take 1 tablet (12.5 mg) by mouth with breakfast and with evening meal. Gita Egan NP Taking Active cinacalcet (Sensipar) 30 mg tablet [id number] Yes Take 1 tablet every day by oral route. Praveena Cohen MD Taking Active furosemide (Lasix) 20 mg tablet [id number] Yes take 1 tablet by mouth once daily Naga Bosch MD Taking Active insulin glargine (Lantus Solostar U-100 Insulin) 100 unit/mL (3 mL) injection pen [id number] Yes Inject 20 Units under the skin at bedtime. Esther Garduno MD Taking Active isopropyl alcohoL 70 % towelette [id number] Yes Test daily before all meals/snacks and once before bedtime. Esther Garduno MD Taking Active lisinopril 20 mg tablet [id number] Yes Take 1 tablet (20 mg) by mouth in the morning. Benja Mcghee MD Taking Active magnesium oxide (Mag-Ox) 400 mg (241.3 mg magnesium) tablet [id number] Yes take 2 tablets by mouth three times a day with meals Woodrow Root MD Taking Active metFORMIN (Glucophage) 500 mg tablet [id number] Yes Take 1 tablet (500 mg) by mouth with breakfast and with evening meal. Esther Garduno MD Taking Active mycophenolate (Myfortic) 180 mg EC tablet [id number] Yes Take 4 tablets (720 mg) by mouth in the morning and at bedtime. Jericho Abad NP Taking Active omeprazole OTC (PriLOSEC OTC) 20 mg EC tablet [id number] Yes Take 1 tablet (20 mg) by mouth before breakfast. Do not crush, chew, or split. Esther Garduno MD Taking Active pen needle, diabetic 31 gauge x 5/16 needle [id number] Yes Use to inject 1-4 times daily as directed. Esther Garduno MD Taking Active sildenafil (Revatio) 20 mg tablet [id number] Yes Take 1 tablet 3 times a day by oral route for 90 days. Benja Mcghee MD Taking Active sulfaSALAzine (Azulfidine) 500 mg EC tablet [id number] Yes Take 500 mg by mouth in the morning and at bedtime. Dane Kerr MD Taking Active tacrolimus (Prograf) 0.5 mg capsule [id number] Yes Take 1 capsule (0.5 mg) by mouth in the morning and at bedtime. Jericho Abad NP Taking Active Immunization History Administered Date(s) Administered Influenza, Seasonal, Quadrivalent, Adjuvanted 04/30/2021 Influenza, Unspecified 02/09/2017 Influenza, injectable, quadrivalent 02/09/2019 Influenza, seasonal, injectable 06/27/2016, 02/13/2017 Pfizer SARS-CoV-2 Vaccination 07/12/2020, 08/02/2020, 04/30/2021 Pneumococcal Polysaccharide PPV23 02/01/2016 Patient Active Problem List Diagnosis Cataract Congestive heart failure ([facility]/HCC) Coronary atherosclerosis End-stage renal disease ([facility]) History of renal transplant Peripheral vascular disease ([facility]) Increased infection risk status post immunosuppressive therapy Multiple congenital cysts of kidney Moderate mixed hyperlipidemia not requiring statin therapy COLD (chronic obstructive lung disease) ([facility]) Essential hypertension, benign Pleurisy with effusion Polycystic kidney DAVID (acute kidney injury) ([facility]) Hypomagnesemia Family History Problem Relation Name Age of Onset Diabetes Mother Hypertension Mother Coronary artery disease Mother Other (cabg) Mother Cystic kidney disease Mother Hypertension Father Skin cancer Father Cystic kidney disease Father Cystic kidney disease Sister Heart disease Brother ALS Brother (more content not included)... [facility] 05-14-2023 Note Patient states he mi ssed a few doses of magnesium and will get back started on and restart the amlodipine per Dr Dk dhaliwal. [facility] 04-30-2023 Note Attestation signed by Ananda [...] as a transfer from outside hospital in [place] for concerns of possible DKA, hyponatremia, and [...] Dose Status aMILoride (Midamor) 5 mg tablet [id number] Take 1 tablet (5 mg) by mouth in the morning. Woodrow Root MD Active amLODIPine (Norvasc) 10 mg tablet [id number] Take 1 tablet (10 mg) by mouth in the morning. Benja Mcghee MD Active atorvastatin (Lipitor) 10 mg tablet [id number] Take 1 tablet (10 mg) by mouth every other day. Gita Egan NP Active carvedilol (Coreg) 12.5 mg tablet [id number] Take 1 tablet (12.5 mg) by mouth with breakfast and with evening meal. Gita Egan NP Active cinacalcet (Sensipar) 30 mg tablet [id number] Take 1 tablet every day by oral route. Praveena Cohen MD Active furosemide (Lasix) 20 mg tablet [id number] take 1 tablet by mouth once daily Naga Bosch MD Active lisinopril 20 mg tablet [id number] Take 1 tablet (20 mg) by mouth in the morning. Benja Mcghee MD Active magnesium oxide (Mag-Ox) 400 mg (241.3 mg magnesium) tablet [id number] take 2 tablets by mo (more content not included)... [facility] 04-30-2023 Note Hospital Medicine Discharge Summary Final Discharge Diagnosis: DKA Admission Diagnosis: DAVID (acute kidney injury) ([facility]) [N17.9] Hospital course: 72 y.o. male who came from home with DAVID with hyponatremia and uncontrolled hyperglycemia. This is a 72 years old gentleman with a medical history of end-stage renal disease s/p renal transplant 3 years ago here in [facility], peripheral vascular disease, pulmonary hypertension, CAD, and hypertension. Mixed hyperlipidemia, COPD, polycystic kidneys, cataract. Came in as transfer from the outside facility hospital in [place] for concern of possible uncontrolled hyperglycemia with [...] Center 05/02/2023 9:00 AM Ramos Hendrickson PA-C [facility] END[facility] 05/19/2023 9:00 AM Jericho Abad [...] aMILoride 5 mg tablet Commonly known as: Midamhi Where to Get Your Medications These medications were sent to [id number] - [place], [place] - [address] [facility] [address] [facility] [address] blood-glucose meter mis insulin glargine 100 unit/mL [...] [phone] - (more content not included)... [facility] 04-29-2023 Note Hospital Medicine Daily Progress Note - 04/29/2023 11:18 AM; Room: 5172/5172-01 Admission: 04/27/2023 10:59 PM; Length of stay: 2 days THE HOSPITALIST TEAM PREFERS TO USE [employer] FOR COMMUNICATION 7AM-7PM. IF I DO NOT RESPOND WITHIN 15 MINUTES, PLEASE PAGE ME/CALL THROUGH THE TABLE WORKER. FROM 7PM-7AM, PLEASE PAGE [phone](COVR) Code Status: Full Code Barriers to Discharge: [...] Problems Principal Problem: DAVID (acute kidney injury) ([facility]) Assessment and Plan # DKA [...] 0.67-0.73. Medial ki (more content not included)... [facility] 04-29-2023 Note Attestation signed by Anadna Pan MD at 04/29/2023 4:41 PM I [...] as a transfer from outside hospital in [place] for concerns of possible DKA, hyponatremia, and [...] Dose Status aMILoride (Midamor) 5 mg tablet [id number] Take 1 tablet (5 mg) by mouth in the morning. Woodrow Root MD Active amLODIPine (Norvasc) 10 mg tablet [id number] Take 1 tablet (10 mg) by mouth in the morning. Benja Mcghee MD Active atorvastatin (Lipitor) 10 mg tablet [id number] Take 1 tablet (10 mg) by mouth every other day. Gita Egan NP Active carvedilol (Coreg) 12.5 mg tablet [id number] Take 1 tablet (12.5 mg) by mouth with breakfast and with evening meal. Gita Egan NP Active cinacalcet (Sensipar) 30 mg tablet [id number] Take 1 tablet every day by oral route. Praveena Cohen MD Acti (more content not included)... [facility] 04-28-2023 Note Hospital Medicine Daily Progress Note - 04/28/2023 12:34 PM; Room: [address] [place] [address] Admission: 04/27/2023 10:59 PM; Length of stay: 1 days THE HOSPITALIST TEAM PREFERS TO USE [employer] CHAT FOR COMMUNICATION 7AM-7PM. IF I DO NOT RESPOND WITHIN 15 MINUTES, PLEASE PAGE ME/CALL THROUGH THE TABLE WORKER. FROM 7PM-7AM, PLEASE PAGE [phone](COVR) Code Status: Full Code Barriers to Discharge: [...] Problems Principal Problem: DAVID (acute kidney injury) ([facility]) Assessment and Plan # DKA [...] regular, 0-60 Units/hr, Last Rate: 8 Units/hr (12/18/23 1221) sodium bicarbonate 100 mEq in sodium [...] Cardiac silhouette is (more content not included)... [facility] 04-27-2023 Note . Hospital Medicine History and Physical 04/27/2023 11:16 PM THE HOSPITALIST TEAM PREFERS TO USE [employer] FOR COMMUNICATION 7AM-7PM. IF I DO NOT RESPOND WITHIN 15 MINUTES, PLEASE PAGE ME/CALL THROUGH THE TABLE WORKER. FROM 7PM-7AM, PLEASE PAGE [phone](COVR) Chief Complaint No chief complaint on file. History of Present Illness Roger Suarez is an 72 y.o. male who came from home with DAVID with hyponatremia and uncontrolled hyperglycemia. This is a 72 years old gentleman with a medical history of end-stage renal disease s/p renal transplant 3 years ago here in [facility], peripheral vascular disease, pulmonary hypertension, CAD, and hypertension. Mixed hyperlipidemia, COPD, polycystic kidneys, cataract. Came in as transfer from the outside facility hospital in [place] for concern of possible uncontrolled hyperglycemia with [...] Diagnosis Date Noted DAVID (acute kidney injury) ([facility]) 04/27/2023 COLD (chronic obstructive lung disease) ([facility]) 04/16/2023 Essential hypertension, benign 04/16/2023 Pleurisy with effusion 04/16/2023 Polycystic kidney 04/16/2023 Moderate mixed hyperlipidemia not requiring statin therapy 04/16/2022 Cataract 01/29/2022 Congestive heart failure ([facility]) 01/29/2022 Coronary atherosclerosis 01/29/2022 Multiple congenital cysts of kidney 01/29/2022 History of renal transplant 10/31/2021 Increased infection risk status post immunosuppressive therapy 10/31/2021 Peripheral vascular disease ([facility]) 01/23/2018 End-stage renal disease ([facility]) 07/22/2009 Assessment and Plan #Acute kidney injury [...] this hospital stay by a member of [facility]. Past Medical History Past Medical History: Diagnosis Date CHF (congestive heart failure) ([facility]) Chronic kidney disease Coronary artery disease Hypertension Pulmonary hypertension ([facility]) Past Surgical History Past Surgical History: Procedure [...] file Tobacco Use (more content not included)... [facility] 04-22-[address] Cardiology - [facility] Subjective Roger Suarez is a [...] overload/acute heart failure admission on 08/2018 at [facility]. He had couple of dialysis session [...] lower extremity edema. Cardiac catheterization 03/04/2019: 1. [id number] single-vessel coronary artery disease with 50% stenosis in the mid to distal circumflex and minimal disease in the LAD and RCA. 2. Moderate elevation of filling pressures. 3. Moderate pulmonary hypertension. 4. Preserved cardiac output and cardiac index. RA 8, RV 59/4, 12. PA (more content not included)... [facility] 04-02-2023 Note New standing lab ord er placed in today's outgoing mail. Following call from clinic [facility] that pt is @ [facility] for lab draws, faxed to [phone] new order and requested [facility] fax all lab results to CT transplant as last monthly lab results were received September 2022. Pt notified order sent & mailed and to contact CT transplant monthly when labs are completed to confirm receipt or have testing @ [facility]. He acknowledged. Encouraged to FU next week with CT transplant. [facility] 03-05-2022 Procedure note [facility] 01-21-2022 Evaluation note Encounter Date Diagnosis Assessment Notes Jan, Diarrhea (ICD-10 - R19.7) Colonoscopy Okay to take Imodium - 1 tablet every morning Jan, Fecal urgency (ICD-10 - R15.2) [facility] Other 05-01-2010 History general Narrative - Reported* [...] Hospitalization History Kidney Issue; on transplant list ([facility]) 02/2018 Hospitalization History pulmonary embolism 0 [facility] Other Evaluation noteNo assessment information available [facility] Work Phone: Evaluation note* Diagnosis Onset Date Resolution Status Diarrhea acute [facility] Work Phone: Evaluation note* Diagnosis Type 2 diabetes mellitus with hyperglycemia, with long-term current use of insulin ([facility]/HCC)- Primary Essential hypertension, benign (CMS/HCC) Essential hypertension, benign Peripheral vascular disease (CMS/HCC) Unspecified peripheral vascular disease Type 2 diabetes mellitus with diabetic chronic kidney disease ([facility]/HCC) Chronic kidney disease, stage 2 (mild) Type 2 diabetes mellitus with diabetic peripheral angiopathy without gangrene ([facility]) [facility] Additional Instructions DISCHARGE INSTRUCTIONS FOR [...] if you have any problems. -Office number [phone] Work Phone: Reason for visit NarrativePATIENT REFERRED BY DR. MCCARTHY FOR EVALUATION AND TREATMENT OF DIARRHEAMount [facility] Other Summary Purpose Family History No Family [...] section and content) DATE CREATED AUTHOR 07/13/2019 [facility] DATE CREATED AUTHOR AUTHOR'S ORGANIZ ATION 11/02/2021 [facility] DATE CREATED AUTHOR AUTHOR'S ORGANIZ ATION 03/12/2022 [facility] DATE CREATED AUTHOR AUTHOR'S ORGANIZ ATION 10/18/2022 [facility] DATE CREATED AUTHOR AUTHOR'S ORGANIZ ATION 02/16/2024 [facility] EPIC DATE CREATED AUTHOR AUTHOR'S ORGANIZ ATION 03/15/2024 [facility] Care Teams (unrecognized sec tion and content) Team Status: Inactive Member Role Status Dates Jericho Mccarthy MD Primary Care Provider Active Tj Wells MD Attending Provider Active Team Status: Active Member Role Status Dates Jericho Mccarthy MD Primary Care Provider Active Home Health Specialist Relationship Specialty Start Date End Date Jericho Mccarthy MD [address] [place] [address] PCP - General Family Medicine 08/25/23 Home Health Specialist Relationship Specialty Start Date End Date Jericho Mccarthy MD [address] [place] [address] PCP - General Family Medicine 08/25/23 Home Health Specialist Relationship Specialty Start Date End Date Jericho Mccarthy MD [address] [place] [address] PCP - General Family Medicine [...] BE BASED ON THE PRIMARY CLINICAL RECORDS. [facility]. provides no warranty or guarantee of the accuracy or completeness of information in this document.
== END 2024-03-23 07:48 | disposition home or self-care (01) ==
LOC: CARD 07:47
PROVIDERS: PCP Family Medicine; Visit Provider Internal Medicine Interventional Cardiology
DX: I27.0 Primary pulmonary hypertension (principal); I50.22 Chronic systolic (congestive) heart failure
CPT/HCPCS: 93306

== ENCOUNTER 2024-04-16 06:53 | Outpatient (OUT) | payer MEDICARE, OTHER, SELFPAY ==
--- OUTSIDE RECORDS SUMMARY | 2024-04-16 06:58 | XMS_ITS | CCD ---
Author Organization [facility] Care Team Providers Care Cloth Drier Name Role Phone Tj Wells Unavailable MD [...] NADERER, DR JERICHO Floyd Primary Care Unavailable KARLUK, DR MERRITT Consulting Unavailable KARLUK, DR MERRITT Attending Unavailable KARLUK, DR MERRITT Admitting Unavailable NADERER, DR FERGUSON A Primary Care Unavailable MISC, DR ALVAREZ Attending Unavailable MISC, DR ALVAREZ Admitting Unavailable NADERER, DR FERGUSON A Primary Care Unavailable MISC, DR ALVAREZ Consulting Unavailable KARLUK, DR MERRITT Consulting Unavailable KARLUK, DR MERRITT Attending Unavailable NADERER, DR FERGUSON A Primary Care Unavailable KARLUK, DR MERRITT Admitting Unavailable MISC, DR ALVAREZ [...] Care Unavailable MISC, DR ALVAREZ Attending Unavailable FABOI, DR JERICHO Floyd Primary Care Unavailable HAY [...] FABIO, DR JERICHO Floyd Primary Care Unavailable NADHAROON, JERICHO Attending Unavailable FABIO, JERICHO Attending Unavailable PETITTI, RAJESH Floyd Attending Unavailable FABIO, JERICHO Attending Unavailable Jericho Mccarthy MD Primary Care Provider BENJA MCGHEE Attending Unavailable CRISENBERBekah, JERICHO Attending Unavailable SAVZSAM, SANTANA Attending Unavailable HORANI, ESTHER Attending Unavailable CHRISTIAN, GYPSY Admitting Unavailable MENDY CLEMONS Referring Unavailable HORANI, ESTHER Referring Unavailable MERZA, NOORALDIN Referring Unavailable MERZA, NOORALDIN Referring Unavailable SAVZSAM, SANTANA Attending Unavailable PRICE MENDEZ Attending Unavailable Allergies Allergy Classification Reported Allergen(s) Allergy Type Date of Onset Reaction(s) Facility (4 sources) Non-steroidal anti-inflammator y agent Drug Intolerance 2 [facility] (1 source) NSAIDs; Translations: [NSAIDS (NON-STEROIDAL ANTI-INFLAMMATOR [...] 11-18-2023 End: 02-16-2024 insulin glargine (Basaglar K Americaen) 100 UNIT/ML pen Indications: Type 2 diabetes [...] bedtime. Active take 2 tablets by mo [facility] every twelve hours Mycophenolate Sodium 180 MG [...] 05, 2022 12:00am 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 He just needs a regular follow-up. Spoke with patient and scheduled him a follow up with Jennifer Egan CNP on 05/13/2024. Normal [facility] ALL CBC WITH AUTO DIFFon BASOPHILS ABSOLUTE AUTO 0 [facility] Basophils/100 WBC (Bld) 0.5 % 0.2 - 2.0 % [facility] Eosinophils/100 WBC (Bld) 2.7 % 0.9 - 7.0 % [facility] Erythrocyte distribution width (RBC) [Ratio] 13.7 % 11.0 - 15.0 % [facility] Hematocrit (Bld) [Volume fraction] 36.6 % Low 42.0 - 54.0 % [facility] Hemoglobin (Bld) [Mass/Vol] 12.1 g/dL Low 14.0 - 18.0 g/dL [facility] IMMATURE GRANULOCYTES ABS AUTO 0.03 [facility] Immature granulocytes/100 WBC (Bld) 0.5 % 0.0 - 0.5 % [facility] Interpretation and review of laboratory results Abnormal [facility] LYMPHOCYTES ABSOLUTE AUTO 0.9 Low [facility] Lymphocytes/100 WBC (Bld) 13.3 % Low 20.5 - 60.0 % [facility] MCH (RBC) [Entitic mass] 29.3 pg 25.9 - 34.0 pg [facility] MCHC (RBC) [Mass/Vol] 33.1 g/dL 29.9 - 35.2 g/dL [facility] MCV (RBC) [Entitic vol] 88.6 fL 80.0 - 94.0 fL [facility] MONOCYTES ABSOLUTE AUTO 0.5 [facility] Monocytes/100 WBC (Bld) 7.7 % 1.7 - 12.0 % [facility] NEUTROPHILS ABSOLUTE AUTO 5 [facility] Neutrophils/100 WBC (Bld) 75.3 % High 43.0 - 75.0 % [facility] Platelet mean volume (Bld) [Entitic vol] 9.1 fL Low 9.5 - 13.5 fL [facility] TBH EO # 0.2 [facility] PLT 262 [facility] RBC 4.13 Low [facility] WBC 6.6 [facility] Documentationon 03-11-2024 Documentation [id number] Roger Suarez 1950 M Date Provider Department [...] Normal [facility] Orders Onlyon 01-16-2024 Orders Only [id number] Roger Suarez 1950 M Date Provider Department Center 01/16/2024 [id number] MARQUES TXP None Family History Problem Relation [...] [facility] Follow-Upon 10-31-2023 Follow-Up [id number] ErickRoger Tyson 1950 M Date Provider Department Center 10/31/2023 SANTANA EMERSON None Family History Problem Relation Age of Onset Diabetes Mother Hypertension Mother Coronary artery disease Mother Other Mother Cystic kidney disease Mother Hypertension Father Skin cancer Father Cystic kidney disease Father Cystic kidney disease Sister Heart disease Brother ALS Brother Cystic kidney disease Brother Family Status - Relation Status Age at Mother Father Sister Brother Level of Service:63544 [place] OFFICE/OUTPATIENT ESTABLISHED MOD MDM 30 MIN Reason for Visit and Comments: Kidney Follow-up [[id number]] - Pt has no concerns at this time. Normal [facility] BILIRUBIN, DIRECTon 07-09-19 Magnesium [Mass/Vol] 0.2 mg/dL Normal 0-0.2 [facility] Comment on above: Performed By: #### L [id number] ####[facility] ([facility] [place] [address] CBC WITH AUTO DIFFERENTIALon 07-09-2023 Basophils (Bld) [#/Vol] 0.03 10*3/uL Normal 0.00-0.20 [facility] Comment on above: Performed By: #### L [id number] ####[facility] ([facility])[address] [place] [address] Basophils/100 WBC (Bld) 0.4 % Normal 0.0-1.0 [facility] Comment on above: Performed By: #### L [id number] ####[facility] ([facility])[address] [place] [address] Eosinophils (Bld) [#/Vol] 0.16 10*3/uL Normal 0.00-0.50 [facility] Comment on above: Performed By: #### L [id number] ####[facility] (BE[facility])[address] [place] [address] Eosinophils/100 WBC (Bld) 1.9 % Normal 0.0-6.0 [facility] Comment on above: Performed By: #### L [id number] ####[facility] ([facility])[address] [place] [address] Erythrocyte distribution width (RBC) [Ratio] 14.0 % Normal 11.5-15.0 [facility] Comment on above: Performed By: #### L [id number] ####[facility] ([facility])[address] [place] [address] ERYTHROCYTE MEAN CORPUSCULAR HEMOGLOBIN CONCENTRATION (G/DL) BY AUTOMATED 34.4 g/dL Normal 32.0-35.0 [facility] Comment on above: Performed By: #### L [id number] ####[facility] [place] [address] Hematocrit (Bld) [Volume fraction] 32.3 % Low 39.0-55.0 [facility] Comment on above: Performed By: #### L [id number] ####[facility] ([facility])[address] [place] [address] Hemoglobin (Bld) [Mass/Vol] 11.1 g/dL Low 13.0-17.0 [facility] Comment on above: Performed By: #### L [id number] ####[facility] ([facility])[address] [place] [address] Immature granulocytes (Bld) [#/Vol] 0.05 10*3/uL Normal 0.00-0.20 [facility] Comment on above: Performed By: #### L [id number] ####[facility] ([facility])[address] [place] [address] Immature granulocytes/100 WBC (Bld) 0.6 % Normal 0.0-1.0 [facility] Comment on above: Performed By: #### L [id number] ####[facility] ([facility])[address] [place] [address] Lymphocytes (Bld) [#/Vol] 1.08 10*3/uL Low 1.20-4.00 [facility] Comment on above: Performed By: #### L [id number] ####[facility] ([facility])[address] [place] [address] Lymphocytes/100 WBC (Bld) 12.7 % Low 20.0-45.0 [facility] Comment on above: Performed By: #### L [id number] ####[facility] [place] [address] MCH (RBC) [Entitic mass] 30.0 pg Normal 27.0-33.0 [facility] Comment on above: Performed By: #### L [id number] ####[facility] ([facility])[address] [place] [address] MCV (RBC) [Entitic vol] 87.3 fL Normal 82.0-98.0 [facility] Comment on above: Performed By: #### L [id number] ####[facility] ([facility])[address] [place] [address] Monocytes (Bld) [#/Vol] 0.67 10*3/uL Normal 0.10-1.00 [facility] Comment on above: Performed By: #### L [id number] ####[facility] ([facility])[address] [place] [address] Monocytes/100 WBC (Bld) 7.9 % Normal 5.0-12.0 [facility] Comment on above: Performed By: #### L [id number] ####[facility] ([facility])[address] [place] [address] Neutrophils (Bld) [#/Vol] 6.49 10*3/uL Normal 1.60-7.60 [facility] Comment on above: Performed By: #### L [id number] ####[facility] ([facility])[address] [place] [address] Neutrophils/100 WBC (Bld) 76.5 % High 40.0-72.0 [facility] Comment on above: Performed By: #### L [id number] ####[facility] ([facility])[address] [place] [address] NRBC (PER 100 WBCS) BY AUTOMATED COUNT 0.0 % Normal 0 [facility] Comment on above: Performed By: #### L [id number] ####[facility] ([facility])[address] [place] [address] PLATELETS (10*3/UL) IN BLOOD AUTOMATED COUNT 271 10*3/uL Normal 150-400 [facility] Comment on above: Performed By: #### L [id number] ####[facility] ([facility])[address] [place] [address] RBC (Bld) [#/Vol] 3.70 10*6/uL Low 4.20-5.70 [facility] Comment on above: Performed By: #### L [id number] ####[facility] ([facility])[address] [place] [address] WBC (Bld) [#/Vol] 8.48 10*3/uL Normal 4.00-10.60 [facility] Comment on above: Performed By: #### L [id number] ####[facility] ([facility])[address] [place] [address] COMPREHENSIVE METABOLIC PANE Claudio 07-09-2023 Albumin [Mass/Vol] 4.4 g/dL Normal 3.5-5.7 [facility] Comment on above: Performed By: #### L [id number] #### [facility] ([facility]) [address] [place] [address] ALP [Catalytic activity/Vol] 82 U/L Normal 34-104 [facility] Comment on above: Performed By: #### L [id number] #### [facility] [address] [place] [address] ALT [Catalytic activity/Vol] 9 U/L Normal 7-52 [facility] Comment on above: Performed By: #### L [id number] #### [facility] ([facility]) [address] [place] [address] Anion gap [Moles/Vol] 15 mmol/L Normal 7-20 [facility] Comment on above: Performed By: #### L [id number] #### [facility] ([facility]) [address] [place] [address] AST [Catalytic activity/Vol] 14 U/L Normal 13-39 [facility] Comment on above: Performed By: #### L [id number] #### [facility] ([facility]) [address] [place] [address] Bilirubin [Mass/Vol] 0.5 mg/dL Normal 0.3-1.0 [facility] Comment on above: Performed By: #### L [id number] #### [facility] ([facility]) [address] [place] [address] Calcium [Mass/Vol] 9.1 mg/dL Normal 8.6-10.3 [facility] Comment on above: Performed By: #### L [id number] #### [facility] ([facility]) [address] [place] [address] Chloride [Moles/Vol] 93 mmol/L Low 98-107 [facility] Comment on above: Performed By: #### L [id number] #### [facility] ([facility]) [address] [place] [address] CO2 [Moles/Vol] 22 mmol/L Normal 21-31 [facility] Comment on above: Performed By: #### L [id number] #### [facility] ([facility]) [address] [place] [address] Creatinine [Mass/Vol] 1.01 mg/dL Normal 0.70-1.30 [facility] Comment on above: Performed By: #### L [id number] #### [facility] ([facility]) [address] [place] [address] GLOMERULAR FILTRATION RATE ML/MIN/1.73 SQ M.PREDICTED 79.5 mL/min/1.73m*2 Normal >60.0 [facility] Comment on above: Result [...] individuals. Performed By: #### L [id number] #### [facility] ([facility]) [address] [place] [address] Glucose [Mass/Vol] 86 mg/dL Normal 70-100 [facility] Comment on above: Performed By: #### L [id number] #### [facility] ([facility]) [address] [place] [address] Potassium [Moles/Vol] 5.2 mmol/L High 3.5-5.1 [facility] Comment on above: Performed By: #### L [id number] #### [facility] ([facility]) [address] [place] [address] Protein [Mass/Vol] 6.8 g/dL Normal 6.0-8.3 [facility] Comment on above: Performed By: #### L [id number] #### [facility] ([facility]) [address] [place] [address] Sodium [Moles/Vol] 125 mmol/L Low 136-145 [facility] Comment on above: Performed By: #### L [id number] #### [facility] ([facility]) [address] [place] [address] Urea nitrogen [Mass/Vol] 17 mg/dL Normal 7-25 [facility] Comment on above: Performed By: #### L [id number] #### [facility] ([facility]ER) [address] [place] [address] UREA NITROGEN/CREATININE (MASS RATIO) IN SER/PLAS 16.8 Normal [facility] Comment on above: Performed By: #### L [id number] #### [facility] ([facility]) [address] [place] [address] Follow-Upon 07-09-2023 Follow-Up [id number] Roger Suarez 1950 M Date Provider Department Center 07/09/2023 60039-VOUPNAPRICE MENDEZ TXP None Family History Problem Relation Age of Onset Diabetes Mother Hypertension Mother Coronary artery disease Mother Other Mother Cystic kidney disease Mother Hypertension Father Skin cancer Father Cystic kidney disease Father Cystic kidney disease Sister Heart disease Brother ALS Brother Cystic kidney disease Brother Family Status - Relation Status Age at Mother Father Sister Brother Level of Service:[id number] [place] OFFICE/OUTPATIENT ESTABLISHED LOW MDM 20 MIN Reason for Visit and Comments: Kidney Follow-up [] - Patient has no major concerns today Normal [facility] HEMOGLOBIN A1Con 07-09-2023 Glucose [Mass/Vol] 160 mg/dL Normal [facility] Comment on above: Performed By: #### L [id number] ####[facility] ([facility])[address] [place] [address] HbA1c (Bld) [Mass fraction] 7.2 % High 4.0-6.0 [facility] Comment on above: Performed By: #### L [id number] ####[facility] ([facility])[address] [place] [address] Labon 07-09-2023 Lab [id number] Roger Suarez 1950 M Date Provider Department Center 07/09/[id number]-[id number] DRAW STATION KXT Draw [facility] Family History Problem Relation Age [...] 07-09-2023 Magnesium [Mass/Vol] 1.5 mg/dL Low 1.9-2.7 [facility] Comment on above: Performed By: #### L [id number] #### [facility] (BEAKER) [address] [place] [address] OSMOLALITYon 07-09-2023 OSMOLALITY MEASURED 272 mOsm/kg Low 275-295 [facility] Comment on above: Result Comment: Test Performed by [employer] [facility] [place] [address] - Released 07/09/2023 16:01 Performed By: #### L [id number] ####[facility] [id number] [place] [address] Orders Onlyon 07-09-2023 Orders Only [id number] Roger Suarez 1950 M Date Provider Department [...] 07-09-2023 Magnesium [Mass/Vol] 4.6 mg/dL Normal 2.5-5.0 [facility] Comment on above: Performed By: #### L [id number] #### [facility] ([facility]ER) [address] [place] [address] TACROLIMUS LEVELon Tacrolimus (Bld) [Mass/Vol] 4.3 ng/mL Low 5.0-20.0 [facility] Comment on above: Result Comment: The [employer] Tacrolimus assay is a delayed one-step immunoassay for the quantitative determination of tacrolimus in human whole blood using the chemiluminescent microparticle immunoassay (CMIA) technology with flexible assay protocols, referred to as Chemiflex. Performed By: #### L [id number] ####[facility] (BEAKER)[address] [place] [address] URIC ACIDon 07-09-2023 Magnesium [Mass/Vol] 6.2 mg/dL Normal 4.4-7.6 [facility] Comment on above: Performed By: #### L [id number] ####[facility] ([facility])[address] [place] [address] Orders Onlyon 06-11-2023 Orders Only [id number] ErickRoger Tyson 1950 M Date Provider Department Center 06/11/2023 JERICHO MOY [facility] Family History Problem Relation Age of Onset [...] 24 Magnesium [Mass/Vol] 0.1 mg/dL Normal 0-0.2 [facility] Comment on above: Performed By: #### L [id number] #### [facility] ([facility]) [address] [place] [address] CBC WITH AUTO DIFFERENTIALon 05-19-2023 Basophils (Bld) [#/Vol] 0.03 10*3/uL Normal 0.00-0.20 [facility] Comment on above: Performed By: #### L [id number] #### [facility] ([facility]) [address] [place] [address] Basophils/100 WBC (Bld) 0.4 % Normal 0.0-1.0 [facility] Comment on above: Performed By: #### L [id number] #### [facility] ([facility]) [address] [place] [address] Eosinophils (Bld) [#/Vol] 0.18 10*3/uL Normal 0.00-0.50 [facility] Comment on above: Performed By: #### L [id number] #### [facility] ([facility]) [address] [place] [address] Eosinophils/100 WBC (Bld) 2.7 % Normal 0.0-6.0 [facility] Comment on above: Performed By: #### L [id number] #### [facility] ([facility]) [address] [place] [address] Erythrocyte distribution width (RBC) [Ratio] 13.7 % Normal 11.5-15.0 [facility] Comment on above: Performed By: #### L [id number] #### [facility] ([facility]) [address] [place] [address] ERYTHROCYTE MEAN CORPUSCULAR HEMOGLOBIN CONCENTRATION (G/DL) BY AUTOMATED 32.9 g/dL Normal 32.0-35.0 [facility] Comment on above: Performed By: #### L [id number] #### [facility] ([facility]) [address] [place] [address] Hematocrit (Bld) [Volume fraction] 34.0 % Low 39.0-55.0 [facility] Comment on above: Performed By: #### L [id number] #### [facility] ([facility]) [address] [place] [address] Hemoglobin (Bld) [Mass/Vol] 11.2 g/dL Low 13.0-17.0 [facility] Comment on above: Performed By: #### L [id number] #### [facility] ([facility]) [address] [place] [address] Immature granulocytes (Bld) [#/Vol] 0.02 10*3/uL Normal 0.00-0.20 [facility] Comment on above: Performed By: #### L [id number] #### [facility] ([facility]) [address] [place] [address] Immature granulocytes/100 WBC (Bld) 0.3 % Normal 0.0-1.0 [facility] Comment on above: Performed By: #### L [id number] #### [facility] ([facility]) [address] [place] [address] Lymphocytes (Bld) [#/Vol] 0.80 10*3/uL Low 1.20-4.00 [facility] Comment on above: Performed By: #### L [id number] #### [facility] (BEAKER) [address] [place] [address] Lymphocytes/100 WBC (Bld) 11.9 % Low 20.0-45.0 [facility] Comment on above: Performed By: #### L [id number] #### [facility] ([facility]) [address] [place] [address] MCH (RBC) [Entitic mass] 29.4 pg Normal 27.0-33.0 [facility] Comment on above: Performed By: #### L [id number] #### [facility] [address] [place] [address] MCV (RBC) [Entitic vol] 89.2 fL Normal 82.0-98.0 [facility] Comment on above: Performed By: #### L [id number] #### [facility] [address] [place] [address] Monocytes (Bld) [#/Vol] 0.54 10*3/uL Normal 0.10-1.00 [facility] Comment on above: Performed By: #### L [id number] #### [facility] [address] [place] [address] Monocytes/100 WBC (Bld) 8.0 % Normal 5.0-12.0 [facility] Comment on above: Performed By: #### L [id number] #### [facility] ([facility]) [address] [place] [address] Neutrophils (Bld) [#/Vol] 5.14 10*3/uL Normal 1.60-7.60 [facility] Comment on above: Performed By: #### L [id number] #### [facility] ([facility]) [address] [place] [address] Neutrophils/100 WBC (Bld) 76.7 % High 40.0-72.0 [facility] Comment on above: Performed By: #### L [id number] #### [facility] ([facility]) [address] [place] [address] NRBC (PER 100 WBCS) BY AUTOMATED COUNT 0.0 % Normal 0 [facility] Comment on above: Performed By: #### L [id number] #### [facility] ([facility]) [address] [place] [address] PLATELETS (10*3/UL) IN BLOOD AUTOMATED COUNT 271 10*3/uL Normal 150-400 [facility] Comment on above: Performed By: #### L [id number] #### [facility] ([facility]) [address] [place] [address] RBC (Bld) [#/Vol] 3.81 10*6/uL Low 4.20-5.70 [facility] Comment on above: Performed By: #### L [id number] #### [facility] ([facility]) [address] [place] [address] WBC (Bld) [#/Vol] 6.71 10*3/uL Normal 4.00-10.60 [facility] Comment on above: Performed By: #### L [id number] #### [facility] ([facility]) [address] [place] [address] COMPREHENSIVE METABOLIC PANE Claudio 05-19-2023 Albumin [Mass/Vol] 4.5 g/dL Normal 3.5-5.7 [facility] Comment on above: Performed By: #### L [id number] #### [facility] ([facility]) [address] [place] [address] ALP [Catalytic activity/Vol] 85 U/L Normal 34-104 [facility] Comment on above: Performed By: #### L [id number] #### [facility] ([facility]) [address] [place] [address] ALT [Catalytic activity/Vol] 10 U/L Normal 7-52 [facility] Comment on above: Performed By: #### L [id number] #### [facility] ([facility]) [address] [place] [address] Anion gap [Moles/Vol] 15 mmol/L Normal 7-20 [facility] Comment on above: Performed By: #### L [id number] #### [facility] ([facility]) [address] [place] [address] AST [Catalytic activity/Vol] 13 U/L Normal 13-39 [facility] Comment on above: Performed By: #### L [id number] #### [facility] ([facility]) [address] [place] [address] Bilirubin [Mass/Vol] 0.5 mg/dL Normal 0.3-1.0 [facility] Comment on above: Performed By: #### L [id number] #### [facility] ([facility]) [address] [place] [address] Calcium [Mass/Vol] 9.1 mg/dL Normal 8.6-10.3 [facility] Comment on above: Performed By: #### L [id number] #### [facility] ([facility]) [address] [place] [address] Chloride [Moles/Vol] 99 mmol/L Normal 98-107 [facility] Comment on above: Performed By: #### L [id number] #### [facility] ([facility]) [address] [place] [address] CO2 [Moles/Vol] 22 mmol/L Normal 21-31 [facility] Comment on above: Performed By: #### L [id number] #### [facility] ([facility]) [address] [place] [address] Creatinine [Mass/Vol] 0.85 mg/dL Normal 0.70-1.30 [facility] Comment on above: Performed By: #### L [id number] #### [facility] ([facility]) [address] [place] [address] GLOMERULAR FILTRATION RATE ML/MIN/1.73 SQ M.PREDICTED 92.9 mL/min/1.73m*2 Normal >60.0 [facility] Comment on above: Result Comment: [facility]???s estimated glomerular filtration rate (eGFR) [...] individuals. Performed By: #### L [id number] #### [facility] ([facility]) [address] [place] [address] Glucose [Mass/Vol] 107 mg/dL High 70-100 [facility] Comment on above: Performed By: #### L [id number] #### [facility] ([facility]) [address] [place] [address] Potassium [Moles/Vol] 4.9 mmol/L Normal 3.5-5.1 [facility] Comment on above: Performed By: #### L [id number] #### [facility] ([facility]) [address] [place] [address] Protein [Mass/Vol] 6.7 g/dL Normal 6.0-8.3 [facility] Comment on above: Performed By: #### L [id number] #### [facility] ([facility]) [address] [place] [address] Sodium [Moles/Vol] 131 mmol/L Low 136-145 [facility] Comment on above: Performed By: #### L [id number] #### [facility] [address] [place] [address] Urea nitrogen [Mass/Vol] 15 mg/dL Normal 7-25 [facility] Comment on above: Performed By: #### L [id number] #### [facility] ([facility]) [address] [place] [address] UREA NITROGEN/CREATININE (MASS RATIO) IN SER/PLAS 17.6 Normal [facility] Comment on above: Performed By: #### L [id number] #### [facility] ([facility]) [address] [place] [address] Follow-Upon 05-19-2023 Follow-Up [id number] Roger Suarez 1950 M Date Provider Department [...] at Mother Father Sister Brother Level of Service:14347 [place] OFFICE/OUTPATIENT ESTABLISHED MOD MDM 30 MIN Reason for Visit and Comments: Kidney Follow-up [[id number]] - No concerns Normal [facility] LIPID PANELon 05-19-2023 CHOL/HDL 1.9 mg/dL Normal [facility] Comment on above: Performed By: #### L [id number] ####[facility] ([facility])[address] [place] [address] Cholesterol [Mass/Vol] 88 mg/dL Low 120-200 [facility] Comment on above: Performed By: #### L [id number] ####[facility] ([facility])[address] [place] [address] Magnesium [Mass/Vol] 53 mg/dL Normal 40-149 [facility] Comment on above: Result Comment: TRIG LYCERIDE REFERENCE RANGE: 20 YEARS AND OLDER CARDIOVASCULAR RISK LESS THAN 150 mg/dL LOW RISK 150 TO 199 mg/dL BORDERLINE RISK 200 mg/dL AND GREATER HIGH RISK Performed By: #### L [id number] ####[facility] ([facility])[address] [place] [address] Magnesium [Mass/Vol] 30 mg/dL Normal 0-160 [facility] Comment on above: Performed By: #### L [id number] ####[facility] ([facility])[address] [place] [address] Magnesium [Mass/Vol] 47 mg/dL Normal 23-92 [facility] Comment on above: Performed By: #### L [id number] ####[facility] ([facility])[address] [place] [address] NON HDL CHOL. (LDL+VLDL) 41 Normal [facility] Comment on above: Performed By: #### L [id number] ####[facility] ([facility])[address] [place] [address] TOTAL VLDL-C 11 mg/dL Normal 0-40 [facility] Comment on above: Performed By: #### L [id number] ####[facility] ([facility])[address] [place] [address] Labon 05-19-2023 Lab [id number] Roger Suarez 1950 M Date Provider Department Center 05/19/202350151-FIS DRAW STATION KXT Draw [facility] Family History Problem Relation Age [...] Magnesium [Mass/Vol] 1.3 mg/dL Low 1.9-2.7 [facility] Comment on above: Performed By: #### L [id number] #### [facility] ([facility]) [address] [place] [address] Orders Onlyon 05-19-2023 Orders Only [id number] Roger Suarez 1950 M [facility] Provider Department Center 05/19/2023 Anamika-LINK SUAREZ None Family History Problem Relation [...] Magnesium [Mass/Vol] 4.5 mg/dL Normal 2.5-5.0 [facility] Comment on above: Performed By: #### L [id number] #### [facility] ([facility]) [address] [place] [address] TACROLIMUS LEVELon Tacrolimus (Bld) [Mass/Vol] 6.0 ng/mL Normal 5.0-20.0 [facility] Comment on above: Result Comment: The [employer] Tacrolimus assay is a delayed one-step immunoassay for the quantitative determination of tacrolimus in human whole blood using the chemiluminescent microparticle immunoassay (CMIA) technology with flexible assay protocols, referred to as Chemiflex. Performed By: #### L [id number] ####[facility] ([facility] [place] [address] TESTOSTERONE, FREE AND TOTAL , AND SHBGon 05-19-2023 SEX HORMONE BINDING GLOBULIN (NMOL/L) IN SER/PLAS 61 nmol/L Normal 11-80 [facility] Comment on above: Performed By: #### L [id number] #### [facility] [address] [place] [address] TESTOSTERONE (NG/DL) IN SER/PLAS 440 ng/dL Normal 220-1000 [facility] Comment on above: Performed By: #### L [id number] #### [facility] [address] [place] [address] TESTOSTERONE FREE (NG/ML) IN SER/PLAS 59.5 pg/mL Normal 47-244 [facility] Comment on above: Result Comment: The concentration of free testosterone is derived from a mathematical expression based on the constant for the binding of testosterone to albumin and/or sex hormone binding globulin. Test Performed by [employer] [address] [place] [address] - Released 05/19/2023 15:01 Performed By: #### L [id number] #### [facility] [address] [place] [address] URIC ACIDon 05-19-2023 Magnesium [Mass/Vol] 6.2 mg/dL Normal 4.4-7.6 [facility] Comment on above: Performed By: #### L [id number] #### [facility] ([facility]) [address] [place] [address] Documentationon 05-14-2023 Documentation [id number] Roger Suarez 1950 M Date Provider Department [...] Status Age at Mother Father Sister Brother [facility] 30on 04-30-2023 30 Daily Case Managemen t Update Multidisciplinary rounds have been completed. Barriers to Discharge: MR for DC Home to follow up with [employer] on Friday. New Diabetic Supply Scripts have been faxed to his pharmacy in [place], [place]. Diet: Dietary Orders (From admission, onward) Start Ordered 04/29/23 1712 Special Kitchen Request Once Comments: Please send a salad with ham, roque, shredded cheddar cheese and onions with zambian dressing. Layered chocolate cake and a diet [...] Consult? Answer: New diagnosis DM2 04/30/23 1109 [facility] 30 Problem: Pain - Adul t [...] Anion gap [Moles/Vol] 12 mmol/L Normal 7-20 [facility] Comment on above: Performed By: #### L [id number] #### [facility] ([facility]) [address] [place] [address] Calcium [Mass/Vol] 8.7 mg/dL Normal 8.6-10.3 [facility] Comment on above: Performed By: #### L [id number] #### [facility] ([facility]) [address] [place] [address] Chloride [Moles/Vol] 102 mmol/L Normal 98-107 [facility] Comment on above: Performed By: #### L [id number] #### [facility] ([facility]) [address] [place] [address] CO2 [Moles/Vol] 24 mmol/L Normal 21-31 [facility] Comment on above: Performed By: #### L [id number] #### [facility] ([facility]) [address] [place] [address] Creatinine [Mass/Vol] 0.80 mg/dL Normal 0.70-1.30 [facility] Comment on above: Performed By: #### L [id number] #### [facility] ([facility]) [address] [place] [address] GLOMERULAR FILTRATION RATE ML/MIN/1.73 SQ M.PREDICTED 94.6 mL/min/1.73m*2 Normal >60.0 [facility] Comment on above: Result [...] individuals. Performed By: #### L [id number] #### [facility] ([facility]) [address] [place] [address] Glucose [Mass/Vol] 160 mg/dL High 70-100 [facility] Comment on above: Performed By: #### L [id number] #### [facility] ([facility]) [address] [place] [address] Potassium [Moles/Vol] 4.2 mmol/L Normal 3.5-5.[address] [facility] Comment on above: Performed By: #### L [id number] #### [facility] ([facility]) [address] [place] [address] Sodium [Moles/Vol] 134 mmol/L Low 136-145 [facility] Comment on above: Performed By: #### L [id number] #### [facility] ([facility]) [address] [place] [address] Urea nitrogen [Mass/Vol] 14 mg/dL Normal 7-25 [facility] Comment on above: Performed By: #### L [id number] #### [facility] ([facility]) [address] [place] [address] UREA NITROGEN/CREATININE (MASS RATIO) IN SER/PLAS 17.5 Normal [facility] Comment on above: Performed By: #### L [id number] #### [facility] ([facility]) [address] [place] [address] CBCon 04-30-2023 Erythrocyte distribution width (RBC) [Ratio] 13.0 % Normal 11.5-15.0 [facility] Comment on above: Performed By: #### L [id number] #### [facility] ([facility]) [address] [place] [address] ERYTHROCYTE MEAN CORPUSCULAR HEMOGLOBIN CONCENTRATION (G/DL) BY AUTOMATED 33.9 g/dL Normal 32.0-35.0 [facility] Comment on above: Performed By: #### L [id number] #### [facility] [address] [place] [address] Hematocrit (Bld) [Volume fraction] 28.0 % Low 39.0-55.0 [facility] Comment on above: Performed By: #### L [id number] #### [facility] ([facility]) [address] [place] [address] Hemoglobin (Bld) [Mass/Vol] 9.5 g/dL Low 13.0-17.0 [facility] Comment on above: Performed By: #### L [id number] #### [facility] ([facility]) [address] [place] [address] MCH (RBC) [Entitic mass] 29.3 pg Normal 27.0-33.0 [facility] Comment on above: Performed By: #### L [id number] #### [facility] ([facility]) [address] [place] [address] MCV (RBC) [Entitic vol] 86.4 fL Normal 82.0-98.0 [facility] Comment on above: Performed By: #### L [id number] #### [facility] ([facility]) [address] [place] [address] PLATELETS (10*3/UL) IN BLOOD AUTOMATED COUNT 232 10*3/uL Normal 150-400 [facility] Comment on above: Performed By: #### L [id number] #### [facility] [address] [place] [address] RBC (Bld) [#/Vol] 3.24 10*6/uL Low 4.20-5.70 [facility] Comment on above: Performed By: #### L [id number] #### [facility] [address] [place] [address] WBC (Bld) [#/Vol] 5.11 10*3/uL Normal 4.00-10.60 [facility] Comment on above: Performed By: #### L [id number] #### [facility] ([facility]) [address] [address] MAGNESIUMon 04-30-2023 Magnesium [Mass/Vol] 1.2 mg/dL Low 1.9-2.7 [facility] Comment on above: Performed By: #### L [id number] #### [facility] ([facility]) [address] [place] [address] PHOSPHORUSon 04-30-2023 Magnesium [Mass/Vol] 3.3 mg/dL Normal 2.5-5.0 [facility] Comment on above: Performed By: #### L [id number] #### [facility] ([facility]) [address] [place] [address] POCT GLUCOSE METER UNSOLICIT ED RESULTSon 04-30-2023 Glucose [Mass/Vol] 251 mg/dL High 70-105 [facility] Comment on above: Order Comment: Waive d Testing in the ED is performed under the ED CLIA certificate #[id number]. Result Comment: [email or web address] Performed By: #### L [id number] #### [facility] ([facility]) [address] [place] [address] Glucose [Mass/Vol] 146 mg/dL High 70-105 [facility] Comment on above: Order Comment: Waive d Testing in the ED is performed under the ED CLIA certificate #[id number]. Result Comment: [email or web address] [email or web address] Performed By: #### L [id number] #### [facility] ([facility]) [address] [place] [address] TACROLIMUS LEVELon Tacrolimus (Bld) [Mass/Vol] 6.1 ng/mL Normal 5.0-20.0 [facility] Comment on above: Result Comment: The [employer] Tacrolimus assay is a delayed one-step immunoassay for the quantitative determination of tacrolimus in human whole blood using the chemiluminescent microparticle immunoassay (CMIA) technology with flexible assay protocols, referred to as Chemiflex. Performed By: #### L [id number] #### [facility] ([facility]) [address] [place] [address] 30on 04-29-2023 30 Daily Case Managemen t [...] roque, shredded cheddar cheese and onions with zambian dressing. Layered chocolate cake and a diet [...] [facility] BASIC METABOLIC PANELon - Anion gap [Moles/Vol] 13 mmol/L Normal 7-20 [facility] Comment on above: Performed By: #### L [id number] ####[facility] ([facility])[address] [place] [address] Calcium [Mass/Vol] 8.7 mg/dL Normal 8.6-10.3 [facility] Comment on above: Performed By: #### L [id number] ####[facility] ([facility])[address] [place] [address] Chloride [Moles/Vol] 103 mmol/L Normal 98-107 [facility] Comment on above: Performed By: #### L [id number] ####[facility] [place] [address] CO2 [Moles/Vol] 22 mmol/L Normal 21-31 [facility] Comment on above: Performed By: #### L [id number] ####[facility] ([facility] [place] [address] Creatinine [Mass/Vol] 0.96 mg/dL Normal 0.70-1.30 [facility] Comment on above: Performed By: #### L [id number] ####[facility] ([facility])[address] [place] [address] GLOMERULAR FILTRATION RATE ML/MIN/1.73 SQ M.PREDICTED 84.5 mL/min/1.73m*2 Normal >60.0 [facility] Comment on above: Result [...] of individuals. Performed By: #### L [id number] ####[facility] ([facility] [place] [address] Glucose [Mass/Vol] 175 mg/dL High 70-100 [facility] Comment on above: Performed By: #### L [id number] ####[facility] ([facility] [place] [address] Potassium [Moles/Vol] 4.5 mmol/L Normal 3.5-5.1 [facility] Comment on above: Performed By: #### L [id number] ####[facility] ([facility] [place] [address] Sodium [Moles/Vol] 133 mmol/L Low 136-145 [facility] Comment on above: Performed By: #### L [id number] ####[facility] ([facility])[address] [place] [address] Urea nitrogen [Mass/Vol] 29 mg/dL High 7-25 [facility] Comment on above: Performed By: #### L [id number] ####[facility] ([facility])[address] [place] [address] UREA NITROGEN/CREATININE (MASS RATIO) IN SER/PLAS 30.2 Normal [facility] Comment on above: Performed By: #### L [id number] ####[facility] ([facility])[address] [place] [address] Anion gap [Moles/Vol] 16 mmol/L Normal 7-20 [facility] Comment on above: Performed By: #### L [id number] #### [facility] ([facility]) [address] [place] [address] Calcium [Mass/Vol] 8.7 mg/dL Normal 8.6-10.3 [facility] Comment on above: Performed By: #### L [id number] #### [facility] [address] [place] [address] Chloride [Moles/Vol] 102 mmol/L Normal 98-107 [facility] Comment on above: Performed By: #### L [id number] #### [facility] ([facility] [address] [place] [address] CO2 [Moles/Vol] 19 mmol/L Low 21-31 [facility] Comment on above: Performed By: #### L [id number] #### [facility] ([facility] [address] [place] [address] Creatinine [Mass/Vol] 1.02 mg/dL Normal 0.70-1.30 [facility] Comment on above: Performed By: #### L [id number] #### [facility] ([facility]) [address] [place] [address] GLOMERULAR FILTRATION RATE ML/MIN/1.73 SQ M.PREDICTED 78.6 mL/min/1.73m*2 Normal >60.0 [facility] Comment on above: Result [...] individuals. Performed By: #### L [id number] #### [facility] ([facility]) [address] [place] [address] Glucose [Mass/Vol] 206 mg/dL High 70-100 [facility] Comment on above: Performed By: #### L [id number] #### [facility] ([facility]) [address] [place] [address] Potassium [Moles/Vol] 4.8 mmol/L Normal 3.5-5.1 [facility] Comment on above: Performed By: #### L [id number] #### [facility] [address] [place] [address] Sodium [Moles/Vol] 132 mmol/L Low 136-145 [facility] Comment on above: Performed By: #### L [id number] #### [facility] ([facility]) [address] [place] [address] Urea nitrogen [Mass/Vol] 31 mg/dL High 7-25 [facility] Comment on above: Performed By: #### L [id number] #### [facility] ([facility]) [address] [place] [address] UREA NITROGEN/CREATININE (MASS RATIO) IN SER/PLAS 30.4 Normal [facility] Comment on above: Performed By: #### L [id number] #### [facility] ([facility]) [address] [place] [address] POCT GLUCOSE METER UNSOLICIT ED RESULTSon 3 Glucose [Mass/Vol] 151 mg/dL High 70-105 [facility] Comment on above: Order Comment: Waive d Testing in the ED is performed under the ED CLIA certificate #[id number]. Result Comment: [email or web address] dic Performed By: #### L [id number] #### [facility] ([facility]) [address] [place] [address] Glucose [Mass/Vol] 166 mg/dL High 70-105 [facility] Comment on above: Order Comment: Waive d Testing in the ED is performed under the ED CLIA certificate #[id number]. Result Comment: [email or web address] ate Performed By: #### L [id number] #### [facility] ([facility]) [address] [place] [address] Glucose [Mass/Vol] 147 mg/dL High 70-105 [facility] Comment on above: Order Comment: Waive d Testing in the ED is performed under the ED CLIA certificate #[id number]. Result Comment: [email or web address] Performed By: #### L [id number] ####[facility] ([facility])[address] [place] [address] Glucose [Mass/Vol] 145 mg/dL High 70-105 [facility] Comment on above: Order Comment: Waive d Testing in the ED is performed under the ED CLIA certificate #[id number]. Result Comment: [email or web address] Performed By: #### L [id number] #### [facility] ([facility]) [address] [place] [address] TACROLIMUS LEVELon 12-19-202 3 Tacrolimus (Bld) [Mass/Vol] 8.6 ng/mL Normal 5.0-20.0 [facility] Comment on above: Result Comment: The [employer] Tacrolimus assay is a delayed one-step immunoassay for the quantitative determination of tacrolimus in human whole blood using the chemiluminescent microparticle immunoassay (CMIA) technology with flexible assay protocols, referred to as Chemiflex. Performed By: #### L [id number] #### [facility] ([facility]) [address] [place] [address] BASIC METABOLIC PANELon 04-11 Anion gap [Moles/Vol] 17 mmol/L Normal 7-20 [facility] Comment on above: Performed By: #### L [id number] #### [facility] ([facility]) [address] [place] [address] Calcium [Mass/Vol] 8.6 mg/dL Normal 8.6-10.3 [facility] Comment on above: Performed By: #### L [id number] #### [facility] [address] [place] [address] Chloride [Moles/Vol] 102 mmol/L Normal 98-107 [facility] Comment on above: Performed By: #### L [id number] #### [facility] ([facility] [address] [place] [address] CO2 [Moles/Vol] 20 mmol/L Low 21-31 [facility] Comment on above: Performed By: #### L [id number] #### [facility] ([facility] [address] [place] [address] Creatinine [Mass/Vol] 1.07 mg/dL Normal 0.70-1.30 [facility] Comment on above: Performed By: #### L [id number] #### [facility] ([facility] [address] [place] [address] GLOMERULAR FILTRATION RATE ML/MIN/1.73 SQ M.PREDICTED 74.2 mL/min/1.73m*2 Normal >60.0 [facility] Comment on above: Result [...] individuals. Performed By: #### L [id number] #### [facility] ([facility]) [address] [place] [address] Glucose [Mass/Vol] 144 mg/dL High 70-100 [facility] Comment on above: Performed By: #### L [id number] #### [facility] ([facility]) [address] [place] [address] Potassium [Moles/Vol] 4.7 mmol/L Normal 3.5-5.[address] [facility] Comment on above: Performed By: #### L [id number] #### [facility] ([facility]) [address] [place] [address] Sodium [Moles/Vol] 134 mmol/L Low 136-145 [facility] Comment on above: Performed By: #### L [id number] #### [facility] ([facility] [address] [place] [address] Urea nitrogen [Mass/Vol] 34 mg/dL High 7-25 [facility] Comment on above: Performed By: #### L [id number] #### [facility] ([facility] [address] [place] [address] UREA NITROGEN/CREATININE (MASS RATIO) IN SER/PLAS 31.8 Normal [facility] Comment on above: Performed By: #### L [id number] #### [facility] ([facility]) [address] [place] [address] Anion gap [Moles/Vol] 17 mmol/L Normal 7-20 [facility] Comment on above: Performed By: #### L [id number] #### [facility] ([facility]) [address] [place] [address] Calcium [Mass/Vol] 8.7 mg/dL Normal 8.6-10.3 [facility] Comment on above: Performed By: #### L [id number] #### [facility] ([facility]) [address] [place] [address] Chloride [Moles/Vol] 100 mmol/L Normal 98-107 [facility] Comment on above: Performed By: #### L [id number] #### [facility] ([facility]) [address] [place] [address] CO2 [Moles/Vol] 19 mmol/L Low 21-31 [facility] Comment on above: Performed By: #### L [id number] #### [facility] ([facility]) [address] [place] [address] Creatinine [Mass/Vol] 1.20 mg/dL Normal 0.70-1.30 [facility] Comment on above: Performed By: #### L [id number] #### [facility] ([facility]) [address] [place] [address] GLOMERULAR FILTRATION RATE ML/MIN/1.73 SQ M.PREDICTED 64.7 mL/min/1.73m*2 Normal >60.0 [facility] Comment on above: Result [...] group of individuals. Performed By: #### L [id number] #### [facility] ([facility]) [address] [place] [address] Glucose [Mass/Vol] 237 mg/dL High 70-100 [facility] Comment on above: Performed By: #### L [id number] #### [facility] ([facility]) [address] [place] [address] Potassium [Moles/Vol] 4.4 mmol/L Normal 3.5-5.[address] [facility] Comment on above: Performed By: #### L [id number] #### [facility] ([facility]) [address] [place] [address] Sodium [Moles/Vol] 132 mmol/L Low 136-145 [facility] Comment on above: Performed By: #### L [id number] #### [facility] ([facility]) [address] [place] [address] Urea nitrogen [Mass/Vol] 40 mg/dL High 7-25 [facility] Comment on above: Performed By: #### L [id number] #### [facility] ([facility]) [address] [place] [address] UREA NITROGEN/CREATININE (MASS RATIO) IN SER/PLAS 33.3 Normal [facility] Comment on above: Performed By: #### L [id number] #### [facility] ([facility]) [address] [place] [address] Anion gap [Moles/Vol] 20 mmol/L Normal 7-20 [facility] Comment on above: Performed By: #### L [id number] #### [facility] [address] [facility] [place] [address] Calcium [Mass/Vol] 8.6 mg/dL Normal 8.6-10.3 [facility] Comment on above: Performed By: #### L [id number] #### [facility] [employer] [facility] [address] [place] [address] Chloride [Moles/Vol] 101 mmol/L Normal 98-107 [facility] Comment on above: Performed By: #### L [id number] #### [facility] [address] [place] [address] CO2 [Moles/Vol] 14 mmol/L Invalid Interpretation Code [facility] Comment on above: Performed By: #### L [id number] #### [facility] [employer] [facility] [facility] [address] [place] [address] Creatinine [Mass/Vol] 1.32 mg/dL High 0.70-1.30 [facility] Comment on above: Performed By: #### L [id number] #### [facility] [address] [place] [address] GLOMERULAR FILTRATION RATE ML/MIN/1.73 SQ M.PREDICTED 57.7 mL/min/1.73m*2 Low >60.0 [facility] Comment on above: Result [...] group of individuals. Performed By: #### L [id number] #### [facility] [employer] [facility] [address] [place] [address] Glucose [Mass/Vol] 332 mg/dL High 70-100 [facility] Comment on above: Performed By: #### L [id number] #### [facility] [employer] [facility] [facility] [address] [place] [address] Potassium [Moles/Vol] 4.6 mmol/L Normal 3.5-5.1 [facility] Comment on above: Performed By: #### L [id number] #### [facility] [address] [place] [address] Sodium [Moles/Vol] 130 mmol/L Low 136-145 [facility] Comment on above: Performed By: #### L [id number] #### [facility] [address] [place] [address] Urea nitrogen [Mass/Vol] 43 mg/dL High 7-25 [facility] Comment on above: Performed By: #### L [id number] #### [facility] [address] [place] [address] UREA NITROGEN/CREATININE (MASS RATIO) IN SER/PLAS 32.6 Normal [facility] Comment on above: Performed By: #### L [id number] #### [facility] [address] [place] [address] Anion gap [Moles/Vol] 22 mmol/L High 7-20 [facility] Comment on above: Performed By: #### L [id number] #### [facility] [address] [place] [address] Calcium [Mass/Vol] 8.9 mg/dL Normal 8.6-10.3 [facility] Comment on above: Performed By: #### L [id number] #### [facility] [address] [place] [address] Chloride [Moles/Vol] 99 mmol/L Normal 98-107 [facility] Comment on above: Performed By: #### L [id number] #### [facility] [address] [place] [address] CO2 [Moles/Vol] 13 mmol/L Invalid Interpretation Code - [facility] Comment on above: Performed By: #### L [id number] #### [facility] [address] [place] [address] Creatinine [Mass/Vol] 1.33 mg/dL High 0.70-1.30 [facility] Comment on above: Performed By: #### L [id number] #### [facility] [address] [place] [address] GLOMERULAR FILTRATION RATE ML/MIN/1.73 SQ M.PREDICTED 57.1 mL/min/1.73m*2 Low >60.0 [facility] Comment on above: Result [...] group of individuals. Performed By: #### L [id number] #### [facility] [address] [place] [address] Glucose [Mass/Vol] 324 mg/dL High 70-100 [facility] Comment on above: Performed By: #### L [id number] #### [facility] [address] [place] [address] Potassium [Moles/Vol] 5.7 mmol/L High 3.5-5.1 [facility] Comment on above: Performed By: #### L [id number] #### [facility] [address] [place] [address] Sodium [Moles/Vol] 128 mmol/L Low 136-145 [facility] Comment on above: Performed By: #### L [id number] #### [facility] [address] [place] [address] Urea nitrogen [Mass/Vol] 45 mg/dL High 7-25 [facility] Comment on above: Performed By: #### L [id number] #### [facility] [address] [place] [address] UREA NITROGEN/CREATININE (MASS RATIO) IN SER/PLAS 33.8 Normal [facility] Comment on above: Performed By: #### L [id number] #### [facility] [address] [place] [address] Anion gap [Moles/Vol] 23 mmol/L High 7-[address] [facility] Comment on above: Performed By: #### L [id number] #### [facility] [address] [place] [address] Calcium [Mass/Vol] 8.8 mg/dL Normal 8.6-10.3 [facility] Comment on above: Performed By: #### L [id number] #### [facility] [address] [place] [address] Chloride [Moles/Vol] 99 mmol/L Normal 98-107 [facility] Comment on above: Performed By: #### L [id number] #### [facility] [employer] [facility] [address] [place] [address] CO2 [Moles/Vol] 13 mmol/L Invalid Interpretation Code [facility] Comment on above: Performed By: #### L [id number] #### [facility] [employer] [facility] [address] [place] [address] Creatinine [Mass/Vol] 1.31 mg/dL High 0.70-1.30 [facility] Comment on above: Performed By: #### L [id number] #### [facility] [employer] [facility] [address] [place] [address] GLOMERULAR FILTRATION RATE ML/MIN/1.73 SQ M.PREDICTED 58.2 mL/min/1.73m*2 Low >60.0 [facility] Comment on above: Result [...] group of individuals. Performed By: #### L [id number] #### [facility] [employer] [facility] [address] [place] [address] Glucose [Mass/Vol] 264 mg/dL High 70-100 [facility] Comment on above: Performed By: #### L [id number] #### [facility] [employer] [facility] [address] [place] [address] Potassium [Moles/Vol] 5.7 mmol/L High 3.5-5.1 [facility] Comment on above: Performed By: #### L [id number] #### [facility] [employer] [facility] [address] [place] [address] Sodium [Moles/Vol] 129 mmol/L Low 136-145 [facility] Comment on above: Performed By: #### L [id number] #### [facility] [employer] [facility] [address] [place] [address] Urea nitrogen [Mass/Vol] 44 mg/dL High 7-25 [facility] Comment on above: Performed By: #### L [id number] #### [facility] [address] [place] [address] UREA NITROGEN/CREATININE (MASS RATIO) IN SER/PLAS 33.6 Normal [facility] Comment on above: Performed By: #### L [id number] #### [facility] [address] [place] [address] BETA HYDROXYBUTYRATEon 04-28 BETA HYDROXYBUTYRATE (MMOL/L) IN SER/PLAS 6.22 mmol/L High 0.02-0.27 [facility] Comment on above: Performed By: #### L [id number] #### [facility] [address] [place] [address] BLOOD CULTUREon 04-28-2023 Bacteria identified Cx Nom (Bld) No growth at 5 days [facility] Comment on above: Performed By: #### L [id number] #### [facility] [address] [place] [address] Bacteria identified Cx Nom (Bld) No growth at 5 days Normal [facility] Comment on above: Order Comment: From a different site than #1. Performed By: #### L [id number] #### [facility] ([facility]) [address] [facility] [place] [address] CMV DNA, QUALITATIVE, PCRon 04-28-2023 CYTOMEGALOVIRUS QUAL. [...] developed and its performance characteristics determined by alike. It has not been cleared or approved by the [place] Food and Drug Administration. This test was performed in a CLIA certified laboratory and is intended for clinical purposes. Performed By: [facility] [address] [place] [address] Supervising Producer: René Wick MD, PhD CLIA Number: [id number] Performed By: #### L [id number] ####[facility] ([facility])[address] [place] [address] CYTOMEGALOVIRUS SOURCE Blood Normal [facility] Comment on above: Performed By: #### L [id number] ####[facility] ([facility])[address] [place] [id number] CONSULTon 04-28-2023 CONSULT - Attestation signed by [...] as a transfer from outside hospital in [place] for concerns of possible DKA, hyponatremia, and [...] nursing note reviewed. Exam conducted with a road machinery inspector present (Dr. Pan). Constitutional: General: He is [...] A1Con 04-28-2023 Glucose [Mass/Vol] 372 mg/dL Normal [facility] Comment on above: Order Comment: NO VA RIANT Performed By: #### L [id number] ####[facility] (BEAKER)[address] [place] [address] HbA1c (Bld) [Mass fraction] 14.6 % High 4.0-6.0 [facility] Comment on above: Order Comment: NO VA RIANT Performed By: #### L [id number] ####[facility] (BEAKER)[address] [place] [address] NURSNOTEon 04-28-[address] Nguyen ( nephrology) regarding placing powerglide if pt a candidate, ok with placement on right arm. Normal [facility] OSMOLALITYon 04-28-2023 OSMOLALITY MEASURED 310 mOsm/kg High 275-295 [facility] Comment on above: Result Comment: Test Performed by [employer] [address] [place] [address] - Released 04/28/2023 22:42 Performed By: #### L [id number] #### [facility] ([facility]) [address] [place] [address] OSMOLALITY, URINEon 04-28-20 23 OSMOLALITY, URINE 446 mOsm/kg Normal 80-1300 [facility] Comment on above: Result Comment: Test Performed by [employer] [address] [place] [address] - Released 04/29/2023 03:35 Performed By: #### L [id number] #### [facility] ([facility]) [address] [place] [address] POCT GLUCOSE METER UNSOLICIT ED RESULTSon 04-28-2023 Glucose [Mass/Vol] 141 mg/dL High 70-105 [facility] Comment on above: Order Comment: Waive d Testing in the ED is performed under the ED CLIA certificate #[id number]. Result Comment: [email or web address] al Performed By: #### L [id number] #### [facility] ([facility]) [address] [place] [address] Glucose [Mass/Vol] 99 mg/dL Normal 70-105 [facility] Comment on above: Order Comment: Waive d Testing in the ED is performed under the ED CLIA certificate #[id number]. Result Comment: besc obe Performed By: #### L [id number] #### [facility] ([facility]) [address] [place] [address] Glucose [Mass/Vol] 115 mg/dL High 70-105 [facility] Comment on above: Order Comment: Waive d Testing in the ED is performed under the ED CLIA certificate #[id number]. Result Comment: besc obe Performed By: #### L [id number] #### [facility] ([facility]) [address] [place] [address] Glucose [Mass/Vol] 145 mg/dL High 70-105 [facility] Comment on above: Order Comment: Waive d Testing in the ED is performed under the ED CLIA certificate #[id number]. Result Comment: wwar rad Performed By: #### L [id number] #### [facility] ([facility]) [address] [place] [address] Glucose [Mass/Vol] 165 mg/dL High 70-105 [facility] Comment on above: Order Comment: Waive d Testing in the ED is performed under the ED CLIA certificate #[id number]. Result Comment: besc obe Performed By: #### L [id number] #### [facility] [address] [facility] [place] [address] Glucose [Mass/Vol] 203 mg/dL High 70-105 [facility] Comment on above: Order Comment: Waive d Testing in the ED is performed under the ED CLIA certificate #[id number]. Result Comment: [email or web address] Performed By: #### L [id number] #### [facility] (BEAKER) [address] [place] [address] Glucose [Mass/Vol] 247 mg/dL High 70-105 [facility] Comment on above: Order Comment: Waive d Testing in the ED is performed under the ED CLIA certificate #[id number]. Result Comment: wwar rad Performed By: #### L [id number] #### [facility] [address] [facility] [place] [address] Glucose [Mass/Vol] 315 mg/dL High 70-105 [facility] Comment on above: Order Comment: Waive d Testing in the ED is performed under the ED CLIA certificate #[id number]. Result Comment: wwar rad Performed By: #### L [id number] #### [facility] [address] [facility] [place] [place] [address] Glucose [Mass/Vol] 356 mg/dL High 70-105 [facility] Comment on above: Order Comment: Waive d Testing in the ED is performed under the ED CLIA certificate #[id number]. Result Comment: [email or web address] rbo Performed By: #### L [id number] #### [facility] [address] [facility] [place] [address] Glucose [Mass/Vol] 312 mg/dL High 70-105 [facility] Comment on above: Order Comment: Waive d Testing in the ED is performed under the ED CLIA certificate #[id number]. Result Comment: wwar rad Performed By: #### L [id number] ####[facility] (BEAKER)[address] [place] [address] PTH, INTACTon 04-28-2023 PARATHYRIN INTACT (PG/ML) IN SER/PLAS 48 pg/mL Normal 12-88 [facility] Comment on above: Performed By: #### L [id number] #### [facility] [address] [place] [address] TACROLIMUS LEVELon Tacrolimus (Bld) [Mass/Vol] 11.6 ng/mL Normal 5.0-20.0 [facility] Comment on above: Result Comment: The [employer] Tacrolimus assay is a delayed one-step immunoassay for the quantitative determination of tacrolimus in human whole blood using the chemiluminescent microparticle immunoassay (CMIA) technology with flexible assay protocols, referred to as Chemiflex. Performed By: #### L [id number] #### [facility] ([facility]) [address] [place] [address] TROPONIN Ion 04-28-2023 Troponin I.cardiac [Mass/Vol] 0.02 ng/mL Normal 0.00-0.04 [facility] Comment on above: Performed By: #### L [id number] #### [facility] ([facility]) [address] [place] [address] Troponin I.cardiac [Mass/Vol] 0.02 ng/mL Normal 0.00-0.04 [facility] Comment on above: Performed By: #### L [id number] #### [facility] [address] [place] [address] APTTon 04-27-2023 ACTIVATED PARTIAL THROMBOPLASTIN TIME IN PPP BY COAGULATION ASSAY 26.1 Seconds Normal 25.0-35.0 [facility] Comment on above: Result Comment: Clin ical significance of the APTT is questionable in the presence of heparin. Performed By: #### L [id number] #### [facility] ([facility]) [address] [place] [address] B-TYPE NATRIURETIC PEPTIDEon 04-27-2023 Natriuretic peptide B (Bld) [Mass/Vol] 98 pg/mL Normal 0-100 [facility] Comment on above: Performed By: #### L [id number] ####[facility] ([facility])[address] [place] [address] BLOOD CULTUREon 04-27-2023 Bacteria identified Cx Nom (Bld) No growth at 5 days Normal [facility] Comment on above: Performed By: #### L [id number] ####[facility] ([facility] [place] [address] Order Comment: From a different site than #1. Performed By: #### L [id number] #### [facility] ([facility] [address] [place] [address] CBC WITH AUTO DIFFERENTIALon 04-27-2023 Basophils (Bld) [#/Vol] 0.04 10*3/uL Normal 0.00-0.20 [facility] Comment on above: Performed By: #### L [id number] ####[facility] ([facility] [place] [address] Basophils/100 WBC (Bld) 0.4 % Normal 0.0-1.0 [facility] Comment on above: Performed By: #### L [id number] ####[facility] ([facility] [place] [address] Eosinophils (Bld) [#/Vol] 0.09 10*3/uL Normal 0.00-0.50 [facility] Comment on above: Performed By: #### L [id number] ####[facility] ([facility] [place] [address] Eosinophils/100 WBC (Bld) 1.0 % Normal 0.0-6.0 [facility] Comment on above: Performed By: #### L [id number] ####[facility] ([facility] [place] [address] Erythrocyte distribution width (RBC) [Ratio] 13.1 % Normal 11.5-15.0 [facility] Comment on above: Performed By: #### L [id number] ####[facility] (BEAKER)[address] [place] [address] ERYTHROCYTE MEAN CORPUSCULAR HEMOGLOBIN CONCENTRATION (G/DL) BY AUTOMATED 33.9 g/dL Normal 32.0-35.0 [facility] Comment on above: Performed By: #### L [id number] ####[facility] ([facility]ER)[address] [place] [address] Hematocrit (Bld) [Volume fraction] 32.7 % Low 39.0-55.0 [facility] Comment on above: Performed By: #### L [id number] ####[facility] ([facility] [place] [address] Hemoglobin (Bld) [Mass/Vol] 11.1 g/dL Low 13.0-17.0 [facility] Comment on above: Performed By: #### L [id number] ####[facility] ([facility])[address] [place] [address] Immature granulocytes (Bld) [#/Vol] 0.15 10*3/uL Normal 0.00-0.20 [facility] Comment on above: Performed By: #### L [id number] ####[facility] ([facility])[address] [place] [address] Immature granulocytes/100 WBC (Bld) 1.6 % High 0.0-1.0 [facility] Comment on above: Performed By: #### L [id number] ####[facility] (BEAKER)[address] [place] [address] Lymphocytes (Bld) [#/Vol] 1.04 10*3/uL Low 1.20-4.00 [facility] Comment on above: Performed By: #### L [id number] ####[facility] ([facility]ER)[address] [place] [address] Lymphocytes/100 WBC (Bld) 11.3 % Low 20.0-45.0 [facility] Comment on above: Performed By: #### L [id number] ####[facility] (BEAKER)[address] [place] [address] MCH (RBC) [Entitic mass] 29.3 pg Normal 27.0-33.0 [facility] Comment on above: Performed By: #### L [id number] ####[facility] (BEAKER)[address] [place] [address] MCV (RBC) [Entitic vol] 86.3 fL Normal 82.0-98.0 [facility] Comment on above: Performed By: #### L [id number] ####[facility] (BEAKER)[address] [place] [address] Monocytes (Bld) [#/Vol] 0.96 10*3/uL Normal 0.10-1.00 [facility] Comment on above: Performed By: #### L [id number] ####[facility] (BEAKER)[address] [place] [address] Monocytes/100 WBC (Bld) 10.5 % Normal 5.0-12.0 [facility] Comment on above: Performed By: #### L [id number] ####[facility] (BEAKER)[address] [place] [address] Neutrophils (Bld) [#/Vol] 6.90 10*3/uL Normal 1.60-7.60 [facility] Comment on above: Performed By: #### L [id number] ####[facility] [facility] [place] [address] Neutrophils/100 WBC (Bld) 75.2 % High 40.0-72.0 [facility] Comment on above: Performed By: #### L [id number] ####[facility] ([facility])[address] [place] [address] NRBC (PER 100 WBCS) BY AUTOMATED COUNT 0.0 % Normal 0 [facility] Comment on above: Performed By: #### L [id number] ####[facility] ([facility])[address] [place] [address] PLATELETS (10*3/UL) IN BLOOD AUTOMATED COUNT 301 10*3/uL Normal 150-400 [facility] Comment on above: Performed By: #### L [id number] ####[facility] ([facility])[address] [place] [address] RBC (Bld) [#/Vol] 3.79 10*6/uL Low 4.20-5.70 [facility] Comment on above: Performed By: #### L [id number] ####[facility] ([facility])[address] [place] [address] WBC (Bld) [#/Vol] 9.18 10*3/uL Normal 4.00-10.60 [facility] Comment on above: Performed By: #### L [id number] ####[facility] ([facility])[address] [place] [address] COMPREHENSIVE METABOLIC PANE Claudio 04-27-2023 Albumin [Mass/Vol] 3.8 g/dL Normal 3.5-5.7 [facility] Comment on above: Performed By: #### L [id number] #### [facility] ([facility]) [address] [place] [address] ALP [Catalytic activity/Vol] 100 U/L Normal 34-104 [facility] Comment on above: Performed By: #### L [id number] #### [facility] ([facility]) [address] [place] [address] ALT [Catalytic activity/Vol] 12 U/L Normal 7-52 [facility] Comment on above: Performed By: #### L [id number] #### [facility] ([facility]) [address] [place] [address] Anion gap [Moles/Vol] 15 mmol/L Normal 7-20 [facility] Comment on above: Performed By: #### L [id number] #### [facility] ([facility]) [address] [place] [address] AST [Catalytic activity/Vol] 12 U/L Low 13-39 [facility] Comment on above: Performed By: #### L [id number] #### [facility] ([facility]) [address] [place] [address] Bilirubin [Mass/Vol] 0.4 mg/dL Normal 0.3-1.0 [facility] Comment on above: Performed By: #### L [id number] #### [facility] [address] [place] [address] Calcium [Mass/Vol] 8.6 mg/dL Normal 8.6-10.3 [facility] Comment on above: Performed By: #### L [id number] #### [facility] [address] [place] [address] Chloride [Moles/Vol] 101 mmol/L Normal 98-107 [facility] Comment on above: Performed By: #### L [id number] #### [facility] ([facility]) [address] [place] [address] CO2 [Moles/Vol] 18 mmol/L Low 21-31 [facility] Comment on above: Performed By: #### L [id number] #### [facility] ([facility]) [address] [place] [address] Creatinine [Mass/Vol] 1.36 mg/dL High 0.70-1.30 [facility] Comment on above: Performed By: #### L [id number] #### [facility] ([facility]) [address] [place] [address] GLOMERULAR FILTRATION RATE ML/MIN/1.73 SQ M.PREDICTED 55.6 mL/min/1.73m*2 Low >60.0 [facility] Comment on above: Result [...] individuals. Performed By: #### L [id number] #### [facility] [address] [place] [address] Glucose [Mass/Vol] 149 mg/dL High 70-100 [facility] Comment on above: Performed By: #### L [id number] #### [facility] ([facility]) [address] [place] [address] Potassium [Moles/Vol] 4.8 mmol/L Normal 3.5-5.[address] [facility] Comment on above: Performed By: #### L [id number] #### [facility] ([facility]) [address] [place] [address] Protein [Mass/Vol] 6.0 g/dL Normal 6.0-8.3 [facility] Comment on above: Performed By: #### L [id number] #### [facility] ([facility]) [address] [place] [address] Sodium [Moles/Vol] 129 mmol/L Low 136-145 [facility] Comment on above: Performed By: #### L [id number] #### [facility] ([facility]) [address] [place] [address] Urea nitrogen [Mass/Vol] 45 mg/dL High 7-25 [facility] Comment on above: Performed By: #### L [id number] #### [facility] ([facility]) [address] [place] [address] UREA NITROGEN/CREATININE (MASS RATIO) IN SER/PLAS 33.1 Normal [facility] Comment on above: Performed By: #### L [id number] #### [facility] ([facility]) [address] [place] [address] CREATININE, URINE, RANDOMon 04-27-2023 Creatinine (U) [Mass/Vol] 100.0 mg/dL Normal 26-299 [facility] Comment on above: Performed By: #### L [id number] ####[facility] ([facility])[address] [place] [address] LACTIC ACID WITH 4 HOUR REFL EXon 04-27-2023 LACTATE (MMOL/L) IN SER/PLAS 0.8 mmol/L Normal 0.5-2.2 [facility] Comment on above: Performed By: #### L [id number] ####[facility] ([facility])[address] [place] [address] MAGNESIUMon 04-27-2023 Magnesium [Mass/Vol] 1.7 mg/dL Low 1.9-2.7 [facility] Comment on above: Performed By: #### L [id number] #### [facility] ([facility]) [address] [place] [address] PHOSPHORUSon 04-27-2023 Magnesium [Mass/Vol] 3.7 mg/dL Normal 2.5-5.0 [facility] Comment on above: Performed By: #### L [id number] #### [facility] ([facility]) [address] [place] [address] POCT GLUCOSE METER UNSOLICIT ED RESULTSon 04-27-2023 Glucose [Mass/Vol] 139 mg/dL High 70-105 [facility] Comment on above: Order Comment: Waive d Testing in the ED is performed under the ED CLIA certificate #[id number]. Result Comment: raza brenner Performed By: #### L [id number] #### [facility] ([facility]) [address] [place] [address] PROTEIN, URINE, RANDOMon Protein (U) [Mass/Vol] 47.2 mg/dL Normal [facility] Comment on above: Result Comment: Ther e are no established reference values for random urine specimens. Performed By: #### L [id number] #### [facility] ([facility]) [address] [place] [address] PROTIME-INRon 04-27-2023 INR IN PPP BY COAGULATION [...] RANGE. CHEST 1995;[id number]. Performed By: #### L [id number] #### [facility] ([facility]) [address] [place] [address] PROTHROMBIN TIME (PT) IN PPP BY COAGULATION ASSAY 14.5 Seconds Normal 12.3-14.8 [facility] Comment on above: Performed By: #### L [id number] #### [facility] ([facility]) [address] [place] [address] SODIUM, URINE, RANDOMon 04-11 Sodium (U) [Moles/Vol] 35 mmol/L Normal [facility] Comment on above: Performed By: #### L [id number] ####[facility] ([facility])[address] [place] [address] TROPONIN Ion 04-27-2023 Troponin I.cardiac [Mass/Vol] 0.04 ng/mL Normal 0.00-0.04 [facility] Comment on above: Performed By: #### L [id number] #### [facility] ([facility]) [address] [place] [address] URINALYSIS MICROSCOPIC WITH REFLEX CULTUREon 04-27-2023 CASTS IN URINE Normal [facility] Comment on above: Performed By: #### L [id number] #### [facility] ([facility]) [address] [place] [address] CRYSTALS IN URINE Normal [facility] Comment on above: Performed By: #### L [id number] #### [facility] ([facility]) [address] [place] [address] OTHER MICROSCOPIC ELEMENTS Normal [facility] Comment on above: Performed By: #### L [id number] #### [facility] ([facility]) [address] [place] [address] RBC (#/HPF) IN URINE SEDIMENT 21-50 Abnormal None Seen [facility] Comment on above: Performed By: #### L [id number] #### [facility] ([facility]) [address] [place] [address] SQUAMOUS EPITHELIAL CELLS (#/HPF) IN URINE SEDIMENT Occasional Normal None Seen, Occasional [facility] Comment on above: Performed By: #### L [id number] #### [facility] ([facility]) [address] [place] [address] WBC (LEUKOCYTE) (#/HPF) IN URINE SEDIMENT 6-10 Abnormal None Seen [facility] Comment on above: Performed By: #### L [id number] #### [facility] ([facility]ER) [address] [place] [address] URINALYSIS WITH REFLEX CULTU REon 04-27-2023 BILIRUBIN, TOTAL PRESENCE IN URINE Negative Normal Negative [facility] Comment on above: Performed By: #### L [id number] #### [facility] ([facility]) [address] [place] [address] Clarity (U) Clear Normal Clear [facility] Comment on above: Performed By: #### L [id number] #### [facility] ([facility]) [address] [place] [address] Color (U) Yellow Normal Yellow [facility] Comment on above: Performed By: #### L [id number] #### [facility] ([facility]) [address] [place] [address] Glucose (U) [Mass/Vol] Negative Normal Negative [facility] Comment on above: Performed By: #### L [id number] #### [facility] ([facility]) [address] [place] [address] HEMOGLOBIN PRESENCE IN URINE Moderate Abnormal Negative [facility] Comment on above: Performed By: #### L [id number] #### [facility] ([facility]) [address] [place] [address] Ketones Ql (U) 20 mg/dL Abnormal Negative [facility] Comment on above: Performed By: #### L [id number] #### [facility] ([facility]) [address] [place] [address] LEUKOCYTE ESTERASE PRESENCE IN URINE BY TEST STRIP Trace Abnormal Negative [facility] Comment on above: Performed By: #### L [id number] #### [facility] ([facility]) [address] [place] [address] NITRITE PRESENCE IN URINE Negative Normal Negative [facility] Comment on above: Performed By: #### L [id number] #### [facility] ([facility]) [address] [address] pH (U) 5.0 [pH] Normal 5.0-8.0 [facility] Comment on above: Performed By: #### L [id number] #### [facility] ([facility]) [address] [place] [address] Protein (U) [Mass/Vol] 30 mg/dL Abnormal Negative [facility] Comment on above: Performed By: #### L [id number] #### [facility] ([facility]) [address] [place] [address] Specific gravity (U) [Rel density] 1.015 Normal 1.015-1.020 [facility] Comment on above: Performed By: #### L [id number] #### [facility] ([facility]) [address] [address] Office Visiton 04-22-2023 Follow-up visit [id number] Roger Suarez 1950 M Date Provider Department Center 04/22/2023 BENJA FIGUEROA ENRIQUE Kathi [facility] Family History Problem Relation Age of Onset Diabetes Mother Hypertension Mother Coronary artery disease Mother Other Mother Cystic kidney disease Mother Hypertension Father Skin cancer Father Cystic kidney disease Father Cystic kidney disease Sister Heart disease Brother ALS Brother Cystic kidney disease Brother Family Status - Relation Status Age at Mother Father Sister Brother Level of Service:72857 CA OFFICE/OUTPATIENT ESTABLISHED LOW MDM 20-29 MIN Normal [facility] FK506 (TACROLIMUS) WHOLE BLO ODon 10-06-2022 Tacrolimus (FK506), Blood 3.8 ng/mL Normal 2.0-20.0 [facility] Comment on above: Result Comment: Trou gh (immediately following transplant) 15.0 . Trough (steady state, 2 weeks or more after transplant): 3.0 - 8.0 . Performed by LC-MS/MS technology. Performed By: #### U CLINT, CMP, LIPID, DBIL, PHOS, MG #### [facility] [address] [place] [address] Dr. Brea Causey BILIRUBIN CONJUGATED (DIRECT )on 10-03-2022 BILI, CONJUGATED 0.1 mg/dL Normal 0.0-0.2 [facility] Comment on above: Performed By: #### C BC #### [facility] [address] [place] [address] Dr. Brea Causey CBC AUTO DIFFon 10-03-2022 BASO # 0.0 103/ul Normal 0.0-0.1 [facility] Comment on above: Performed By: #### U CLINT, CMP, LIPID, DBIL, PHOS, MG #### [facility] [address] [place] [address] Dr. Brea Causey Basophils/100 WBC (Bld) 0.5 % Normal 0.2-2.0 [facility] Comment on above: Performed By: #### U CLINT, CMP, LIPID, DBIL, PHOS, MG #### [facility] [address] [place] [address] Dr. Brea Causey EO # 0.1 103/ul Normal 0.0-0.7 [facility] Comment on above: Performed By: #### U CLINT, CMP, LIPID, DBIL, PHOS, MG #### [facility] [address] [place], [place] [id number] Dr. Brea Causey Eosinophils/100 WBC (Bld) 2.3 % Normal 0.9-7.0 [facility] Comment on above: Performed By: #### U CLINT, CMP, LIPID, DBIL, PHOS, MG #### [facility] [address] [place] [address] Dr. Brea Causey Erythrocyte distribution width (RBC) [Ratio] 13.2 % Normal 11.0-15.0 [facility] Comment on above: Performed By: #### U CLINT, CMP, LIPID, DBIL, PHOS, MG #### [facility] [address] [place] [address] Dr. Brea Causey Hematocrit (Bld) [Volume fraction] 35.0 % Critically low 42.0-54.0 [facility] Comment on above: Performed By: #### U CLINT, CMP, LIPID, DBIL, PHOS, MG #### [facility] [address] [place] [address] Dr. Brea Causey Hemoglobin (Bld) [Mass/Vol] 11.7 g/dL Critically low 14.0-18.0 [facility] Comment on above: Performed By: #### U CLINT, CMP, LIPID, DBIL, PHOS, MG #### [facility] [address] [place] [address] Dr. Brea Causey IG # 0.06 10e3/ul Critically high 0.00-0.03 [facility] Comment on above: Performed By: #### U CLINT, CMP, LIPID, DBIL, PHOS, MG #### [facility] [address] [place] [address] Dr. Brea Causey IG % 1.1 % Critically high 0.0-0.5 [facility] Comment on above: Performed By: #### U CLINT, CMP, LIPID, DBIL, PHOS, MG #### [facility] [address] [place] [address] Dr. Brea Causey LYMPH # 0.8 103/ul Critically low 1.2-3.[address] [facility] Comment on above: Performed By: #### U CLINT, CMP, LIPID, DBIL, PHOS, MG #### [facility] [address] [address] [address] Brea Causey Lymphocytes/100 WBC (Bld) 14.9 % Critically low 20.5-60.0 [facility] Comment on above: Performed By: #### U CLINT, CMP, LIPID, DBIL, PHOS, MG #### [facility] [address] [address] [address] Brea Causey MANUAL DIFF REQ NO Normal [facility] Comment on above: Performed By: #### U CLINT, CMP, LIPID, DBIL, PHOS, MG #### [facility] [address] [place] [address] Dr. Brea Causey MCH (RBC) [Entitic mass] 28.8 pg Normal 25.9-34.0 [facility] Comment on above: Performed By: #### U CLINT, CMP, LIPID, DBIL, PHOS, MG #### [facility] [address] [place] [address] Dr. Brea Causey MCHC (RBC) [Mass/Vol] 33.4 g/dL Normal 29.9-35.2 [facility] Comment on above: Performed By: #### U CLINT, CMP, LIPID, DBIL, PHOS, MG #### [facility] [address] [place] [address] Dr. Brea Causey MCV (RBC) [Entitic vol] 86.2 fL Normal 80.0-94.0 [facility] Comment on above: Performed By: #### U CLINT, CMP, LIPID, DBIL, PHOS, MG #### [facility] [address] [place] [address] Dr. Brea Causey MONO # 0.5 103/ul Normal 0.3-0.8 [facility] Comment on above: Performed By: #### U CLINT, CMP, LIPID, DBIL, PHOS, MG #### [facility] [address] [place] [address] Dr. Brea Causey Monocytes/100 WBC (Bld) 9.1 % Normal 1.7-12.0 [facility] Comment on above: Performed By: #### U CLINT, CMP, LIPID, DBIL, PHOS, MG #### [facility] [address] [address] [address] Brea Causey NEUT # 4.1 103/ul Normal 1.4-6.5 [facility] Comment on above: Performed By: #### U CLINT, CMP, LIPID, DBIL, PHOS, MG #### [facility] [address] [address] [address] Brea Cuasey Neutrophils/100 WBC (Bld) 72.1 % Normal 43.0-75.0 [facility] Comment on above: Performed By: #### U CLINT, CMP, LIPID, DBIL, PHOS, MG #### [facility] [address] [address] [address] Brea Causey Platelet mean volume (Bld) [Entitic vol] 9.0 fL Critically low 9.5-13.5 [facility] Comment on above: Performed By: #### U CLINT, CMP, LIPID, DBIL, PHOS, MG #### [facility] [address] [address] [address] Brea Causey PLT 211 103/ul Normal 150-450 [facility] Comment on above: Performed By: #### U CLINT, CMP, LIPID, DBIL, PHOS, MG #### [facility] [address] [address] [address] Brea Causey RBC 4.06 106/ul Critically low 4.70-6.10 [facility] Comment on above: Performed By: #### U CLINT, CMP, LIPID, DBIL, PHOS, MG #### [facility] [address] [address] [address] Brea Causey WBC 5.6 103/ul Normal 4.0-11.0 [facility] Comment on above: Performed By: #### U CLINT, CMP, LIPID, DBIL, PHOS, MG #### [facility] [address] [address] [address] Brea Causey LIPID PROFILEon 10-03-2022 CHOL-HDL RATIO NORM SEE BELOW Normal [facility] Comment on above: Result Comment: 3.3 - 4.4 LOW RISK 4.4 - 7.1 AVERAGE RISK 7.1 - 11.0 MODERATE RISK >11.0 HIGH RISK Performed By: #### C BC #### [facility] [address] [address] [address] Brea Causey Cholesterol [Mass/Vol] 93 mg/dL Normal <=200 [facility] Comment on above: Performed By: #### C BC #### [facility] [address] [address] [address] Brea Causey Cholesterol in HDL [Mass/Vol] 43 mg/dL Normal 40-60 [facility] Comment on above: Performed By: #### C BC #### [facility] [address] [address] [address] Brea Causey Cholesterol in LDL [Mass/Vol] 37.6 mg/dL Normal [facility] Comment on above: Performed By: #### C BC #### [facility] [address] [address] [address] Brea Causey Cholesterol.total/Cho lesterol in HDL [Mass ratio] 2.2 {ratio} Normal [facility] Comment on above: Performed By: #### C BC #### [facility] [address] [place] [address] Dr. Brea Causey HDL NORMAL > or = 60 mg/dl - LO W CARDIOVASCULAR RISK <40 mg/dl - HIGH CARDIOVASCULAR RISK Normal [facility] Comment on above: Performed By: #### C BC #### [facility] [address] [address] [address] Brea Causey LDL CALC NORMAL SEE BELOW Normal [facility] Comment on above: Result Comment: <100 mg/dl OPTIMAL 100 - 129 mg/dl NEAR OR ABOVE OPTIMAL 130 - 159 mg/dl BORDERLINE HIGH 160 - 189 mg/dl HIGH >190 mg/dl VERY HIGH Performed By: #### C BC #### [facility] [address] [address] [address] Brea Causey Triglyceride [Mass/Vol] 62 mg/dL Normal <=150 [facility] Comment on above: Performed By: #### C BC #### [facility] [address] [place] [address] Dr. Brea Causey VLDL CALC 12.4 mg/dL Normal [facility] Comment on above: Performed By: #### C BC #### [facility] [address] [place] [address] Dr. Brea Causey MAGNESIUMon 10-03-2022 Magnesium [Mass/Vol] 1.5 mg/dL Critically low 1.8-2.4 [facility] Comment on above: Performed By: #### C BC #### [facility] [address] [place] [address] Dr. Brea Causey PHOSPHORUSon 10-03-2022 Phosphate [Mass/Vol] 4.4 mg/dL Normal 2.6-4.7 [facility] Comment on above: Performed By: #### C BC #### [facility] [address] [place] [address] Dr. Brea Causey PROF 14(COMP METB)on 023 Albumin [Mass/Vol] 3.8 g/dL Normal 3.4-5.0 [facility] Comment on above: Performed By: #### C BC #### [facility] [address] [place] [address] Dr. Brea Causey Albumin/Globulin [Mass ratio] 1.1 {ratio} Normal [facility] Comment on above: Performed By: #### C BC #### [facility] [address] [place] [address] Dr. Brea Causey ALP [Catalytic activity/Vol] 190 U/L Critically high 46-116 [facility] Comment on above: Performed By: #### C BC #### [facility] [address] [place] [address] Dr. Brea Causey ALT [Catalytic activity/Vol] 26 U/L Normal 16-63 [facility] Comment on above: Performed By: #### C BC #### [facility] [address] [place] [address] Dr. Brea Causey Anion gap [Moles/Vol] 15.3 mmol/L Normal [facility] Comment on above: Performed By: #### C BC #### [facility] [address] [address] [address] Brea Causey AST [Catalytic activity/Vol] 23 U/L Normal 15-37 [facility] Comment on above: Performed By: #### C BC #### [facility] [address] [address] [address] Brea Causey Bilirubin [Mass/Vol] 0.4 mg/dL Normal 0.2-1.0 [facility] Comment on above: Performed By: #### C BC #### [facility] [address] [address] [address] Brea Causey Calcium [Mass/Vol] 7.8 mg/dL Critically low 8.5-10.1 Th [facility] Comment on above: Performed By: #### C BC #### [facility] [address] [address] [address] Brea Causey Chloride [Moles/Vol] 97 mmol/L Critically low 98-107 [facility] Comment on above: Performed By: #### C BC #### [facility] [address] [address] [address] Brea Causey CO2 [Moles/Vol] 25.6 mmol/L Normal 21.0-32.0 [facility] Comment on above: Performed By: #### C BC #### [facility] [address] [address] [address] Brea Causey Creatinine [Mass/Vol] 1.03 mg/dL Normal 0.70-1.30 [facility] Comment on above: Performed By: #### C BC #### [facility] [address] [address] [address] Brea Causey EGFR-AF TUNISIAN >60 Normal >=60 [facility] Comment on above: Performed By: #### C BC #### [facility] [id number] Brea Causey EGFR-NON AF TUNISIAN >60 Normal >=60 [facility] Comment on above: Performed By: #### C BC #### [facility] [address] [address] [address] Brea Causey Globulin (S) [Mass/Vol] 3.6 g/dL Normal [facility] Comment on above: Performed By: #### C BC #### [facility] [address] [address] [address] Brea Causey Glucose [Mass/Vol] 188 mg/dL Critically high 74-106 T [facility] Comment on above: Performed By: #### C BC #### [facility] [address] [address] [address] Brea Causey Potassium [Moles/Vol] 4.9 mmol/L Normal 3.5-5.1 [facility] Comment on above: Performed By: #### C BC #### [facility] [address] [place] [address] Dr. Brea Causey Protein [Mass/Vol] 7.4 g/dL Normal 6.4-8.2 [facility] Comment on above: Performed By: #### C BC #### [facility] [address] [place] [address] Dr. Brea Causey Sodium [Moles/Vol] 133 mmol/L Critically low 136-145 Th [facility] Comment on above: Performed By: #### C BC #### [facility] [address] [place] [address] Dr. Brea Causey Urea nitrogen [Mass/Vol] 11.0 mg/dL Normal 7.0-18.0 [facility] Comment on above: Performed By: #### C BC #### [facility] [address] [place] [address] Dr. Brea Causey Urea nitrogen/Creatinine [Mass ratio] 10.7 mg/mg Normal [facility] Comment on above: Performed By: #### C BC #### [facility] [address] [place] [address] Dr. Brea Causey URIC ACID SERUMon 10-03-2022 Urate [Mass/Vol] 5.7 mg/dL Normal 3.5-7.2 [facility] Comment on above: Performed By: #### C BC #### [facility] [address] [place] [address] Dr. Brea Causey BK VIRUS PCR QUANTon 023 BKV DNA QUANT PCR PLASMA Negative Normal Negative [facility] Comment on above: Result Comment: No B K DNA detected. . The linear range of the assay is 22 - 100,000,000 IU/mL. Performed By: #### U CLINT, CMP, LIPID, DBIL, PHOS, MG #### [facility] [address] [address] [address] Brea Causey Log10 BKV DNA Plasma Normal [facility] Comment on above: Performed By: #### U CLINT, CMP, LIPID, DBIL, PHOS, MG #### [facility] [address] [place] [address] Dr. Brea Causey FK506 (TACROLIMUS) WHOLE BLO ODon 09-02-2022 Tacrolimus (FK506), Blood 3.8 ng/mL Normal 2.0-20.0 [facility] Comment on above: Result Comment: Trou gh (immediately following transplant) 15.0 . Trough (steady state, 2 weeks or more after transplant): 3.0 - 8.0 . Performed by LC-MS/MS technology. Performed By: #### U CLINT, CMP, LIPID, DBIL, PHOS, MG #### [facility] [address] [place] [address] Dr. Brea Causey [facility], [facility] Free Testosterone(Direct) 9.7 pg/mL Normal 6.6-18.1 [facility] Comment on above: Result Comment: Perf ormed at: BN Performed By: #### U CLINT, CMP, LIPID, DBIL, PHOS, MG #### [facility] [address] [place] [address] Dr. Brea Causey Testosterone [Mass/Vol] 565 ng/dL Normal 264-916 [facility] Comment on above: Result Comment: Adul t male reference interval is based on a population of healthy nonobese males (BMI <30) between 19 and 39 years old. daniel Harris.al. JCEM 2017,102;[id number]. PMID: [id number]. Performed at: CB Performed By: #### U CLINT, CMP, LIPID, DBIL, PHOS, MG #### [facility] [address] [place] [address] Dr. Brea Causey BILIRUBIN CONJUGATED (DIRECT )on 08-30-2022 BILI, CONJUGATED 0.1 mg/dL Normal 0.0-0.2 [facility] Comment on above: Performed By: #### U CLINT, CMP, LIPID, DBIL, PHOS, MG #### [facility] [address] [place] [address] Dr. Brea Causey CBC AUTO DIFFon 08-30-2022 BASO # 0.0 103/ul Normal 0.0-0.1 [facility] Comment on above: Performed By: #### U CLINT, CMP, LIPID, DBIL, PHOS, MG #### [facility] [address] [place] [address] Dr. Brea Causey Basophils/100 WBC (Bld) 0.7 % Normal 0.2-2.0 [facility] Comment on above: Performed By: #### U CLINT, CMP, LIPID, DBIL, PHOS, MG #### [facility] [address] [place] [address] Dr. Brea Causey EO # 0.2 103/ul Normal 0.0-0.7 [facility] Comment on above: Performed By: #### U CLINT, CMP, LIPID, DBIL, PHOS, MG #### [facility] [address] [place] [address] Dr. Brea Causey Eosinophils/100 WBC (Bld) 3.6 % Normal 0.9-7.0 [facility] Comment on above: Performed By: #### U CLINT, CMP, LIPID, DBIL, PHOS, MG #### [facility] [address] [place] [address] Dr. Brea Causey Erythrocyte distribution width (RBC) [Ratio] 13.2 % Normal 11.0-15.0 [facility] Comment on above: Performed By: #### U CLINT, CMP, LIPID, DBIL, PHOS, MG #### [facility] [address] [address] [address] Brea Causey Hematocrit (Bld) [Volume fraction] 36.0 % Critically low 42.0-54.0 [facility] Comment on above: Performed By: #### U CLINT, CMP, LIPID, DBIL, PHOS, MG #### [facility] [address] [place] [address] Dr. Brea Causey Hemoglobin (Bld) [Mass/Vol] 12.2 g/dL Critically low 14.0-18.0 [facility] Comment on above: Performed By: #### U CLINT, CMP, LIPID, DBIL, PHOS, MG #### [facility] [address] [place] [address] Dr. Brea Causey IG # 0.07 10e3/ul Critically high 0.00-0.03 [facility] Comment on above: Performed By: #### U CLINT, CMP, LIPID, DBIL, PHOS, MG #### [facility] [address] [place] [address] Dr. Brea Causey IG % 1.2 % Critically high 0.0-0.5 [facility] Comment on above: Performed By: #### U CLINT, CMP, LIPID, DBIL, PHOS, MG #### [facility] [address] [place] [address] Dr. Brea Causey LYMPH # 0.9 103/ul Critically low 1.2-3.[address] [facility] Comment on above: Performed By: #### U CLINT, CMP, LIPID, DBIL, PHOS, MG #### [facility] [address] [place] [address] Dr. Brea Causey Lymphocytes/100 WBC (Bld) 15.0 % Critically low 20.5-60.0 [facility] Comment on above: Performed By: #### U CLINT, CMP, LIPID, DBIL, PHOS, MG #### [facility] [address] [place] [address] Dr. Brea Causey MANUAL DIFF REQ NO Normal [facility] Comment on above: Performed By: #### U CLINT, CMP, LIPID, DBIL, PHOS, MG #### [facility] [address] [place] [address] Dr. Brea Causey MCH (RBC) [Entitic mass] 29.4 pg Normal 25.9-34.0 [facility] Comment on above: Performed By: #### U CLINT, CMP, LIPID, DBIL, PHOS, MG #### [facility] [address] [place] [address] Dr. Brea Causey MCHC (RBC) [Mass/Vol] 33.9 g/dL Normal 29.9-35.2 [facility] Comment on above: Performed By: #### U CLINT, CMP, LIPID, DBIL, PHOS, MG #### [facility] [address] [place] [address] Dr. Brea Causey MCV (RBC) [Entitic vol] 86.7 fL Normal 80.0-94.0 [facility] Comment on above: Performed By: #### U CLINT, CMP, LIPID, DBIL, PHOS, MG #### [facility] [address] [place] [address] Dr. Brea Causey MONO # 0.5 103/ul Normal 0.3-0.8 [facility] Comment on above: Performed By: #### U CLINT, CMP, LIPID, DBIL, PHOS, MG #### [facility] [address] [place] [address] Dr. Brea Causey Monocytes/100 WBC (Bld) 9.0 % Normal 1.7-12.0 [facility] Comment on above: Performed By: #### U CLINT, CMP, LIPID, DBIL, PHOS, MG #### [facility] [address] [place] [address] Dr. Brea Causey NEUT # 4.2 103/ul Normal 1.4-6.5 [facility] Comment on above: Performed By: #### U CLINT, CMP, LIPID, DBIL, PHOS, MG #### [facility] [address] [place] [address] Dr. Brea Causey Neutrophils/100 WBC (Bld) 70.5 % Normal 43.0-75.0 [facility] Comment on above: Performed By: #### U CLINT, CMP, LIPID, DBIL, PHOS, MG #### [facility] [address] [address] [address] Brea Causey Platelet mean volume (Bld) [Entitic vol] 8.7 fL Critically low 9.5-13.5 [facility] Comment on above: Performed By: #### U CLINT, CMP, LIPID, DBIL, PHOS, MG #### [facility] [address] [address] [address] Brea Causey PLT 247 103/ul Normal 150-450 [facility] Comment on above: Performed By: #### U CLINT, CMP, LIPID, DBIL, PHOS, MG #### [facility] [address] [address] [address] Brea Causey RBC 4.15 106/ul Critically low 4.70-6.10 [facility] Comment on above: Performed By: #### U CLINT, CMP, LIPID, DBIL, PHOS, MG #### [facility] [address] [place] [address] Dr. Brea Causey WBC 5.9 103/ul Normal 4.0-11.0 [facility] Comment on above: Performed By: #### U CLINT, CMP, LIPID, DBIL, PHOS, MG #### [facility] [address] [place] [address] Dr. Brea Causey GLYCOHEMOGLOBIN A1Con 2022 ADA RECOMMENDATION SEE BELOW Normal [facility] Comment on above: Result Comment: ADA RECOMMENDED LIMIT 4.0 - 6.0 ADA THERAPEUTIC TARGET < 7.0 ACTION SUGGESTED > 7.0 Performed By: #### U CLINT, CMP, LIPID, DBIL, PHOS, MG #### [facility] [address] [address] [address] Brea Causey Glucose [Mass/Vol] 177 mg/dL Normal [facility] Comment on above: Performed By: #### U CLINT, CMP, LIPID, DBIL, PHOS, MG #### [facility] [address] [place] [address] Dr. Brea Causey HbA1c (Bld) [Mass fraction] 7.8 % Critically high 4.5-6.2 [facility] Comment on above: Performed By: #### U CLINT, CMP, LIPID, DBIL, PHOS, MG #### [facility] [address] [address] [address] Brea Causey LIPID PROFILEon 08-30-2022 CHOL-HDL RATIO NORM SEE BELOW Normal [facility] Comment on above: Result Comment: 3.3 - 4.4 LOW RISK 4.4 - 7.1 AVERAGE RISK 7.1 - 11.0 MODERATE RISK >11.0 HIGH RISK Performed By: #### U CLINT, CMP, LIPID, DBIL, PHOS, MG #### [facility] [address] [address] [address] Brea Causey Cholesterol [Mass/Vol] 96 mg/dL Normal <=200 [facility] Comment on above: Performed By: #### U CLINT, CMP, LIPID, DBIL, PHOS, MG #### [facility] [address] [address] [address] Brea Causey Cholesterol in HDL [Mass/Vol] 48 mg/dL Normal 40-60 [facility] Comment on above: Performed By: #### U CLINT, CMP, LIPID, DBIL, PHOS, MG #### [facility] [address] [address] [address] Brea Causey Cholesterol in LDL [Mass/Vol] 40.2 mg/dL Normal [facility] Comment on above: Performed By: #### U CLINT, CMP, LIPID, DBIL, PHOS, MG #### [facility] [address] [address] [address] Brea Causey Cholesterol.total/Cho lesterol in HDL [Mass ratio] 2.0 {ratio} Normal [facility] Comment on above: Performed By: #### U CLINT, CMP, LIPID, DBIL, PHOS, MG #### [facility] [address] [address] [address] Brea Causey HDL NORMAL > or = 60 mg/dl - LO W CARDIOVASCULAR RISK <40 mg/dl - HIGH CARDIOVASCULAR RISK Normal [facility] Comment on above: Performed By: #### U CLINT, CMP, LIPID, DBIL, PHOS, MG #### [facility] [address] [address] [address] Brea Causey LDL CALC NORMAL SEE BELOW Normal [facility] Comment on above: Result Comment: <100 mg/dl OPTIMAL 100 - 129 mg/dl NEAR OR ABOVE OPTIMAL 130 - 159 mg/dl BORDERLINE HIGH 160 - 189 mg/dl HIGH >190 mg/dl VERY HIGH Performed By: #### U CLINT, CMP, LIPID, DBIL, PHOS, MG #### [facility] [address] [address] [address] Brea Causey Triglyceride [Mass/Vol] 39 mg/dL Normal <=150 [facility] Comment on above: Performed By: #### U CLINT, CMP, LIPID, DBIL, PHOS, MG #### [facility] [address] [address] [address] Brea Causey VLDL CALC 7.8 mg/dL Normal [facility] Comment on above: Performed By: #### U CLINT, CMP, LIPID, DBIL, PHOS, MG #### [facility] [address] [address] [address] Brea Causey MAGNESIUMon 08-30-2022 Magnesium [Mass/Vol] 1.5 mg/dL Critically low 1.8-2.4 [facility] Comment on above: Performed By: #### U CLINT, CMP, LIPID, DBIL, PHOS, MG #### [facility] [address] [address] [address] Brea Causey PHOSPHORUSon 08-30-2022 Phosphate [Mass/Vol] 4.0 mg/dL Normal 2.6-4.7 [facility] Comment on above: Performed By: #### U CLINT, CMP, LIPID, DBIL, PHOS, MG #### [facility] [address] [address] [address] Brea Causey PROF 14(COMP METB)on 023 Albumin [Mass/Vol] 3.8 g/dL Normal 3.4-5.0 [facility] Comment on above: Performed By: #### U CLINT, CMP, LIPID, DBIL, PHOS, MG #### [facility] [address] [address] [address] Brea Causey Albumin/Globulin [Mass ratio] 1.1 {ratio} Normal [facility] Comment on above: Performed By: #### U CLINT, CMP, LIPID, DBIL, PHOS, MG #### [facility] [address] [address] [address] Brea Causey ALP [Catalytic activity/Vol] 177 U/L Critically high 46-116 [facility] Comment on above: Performed By: #### U CLINT, CMP, LIPID, DBIL, PHOS, MG #### [facility] [address] [place] [address] Dr. Brea Causey ALT [Catalytic activity/Vol] 27 U/L Normal 16-63 [facility] Comment on above: Performed By: #### U CLINT, CMP, LIPID, DBIL, PHOS, MG #### [facility] [address] [place] [address] Dr. Brea Causey Anion gap [Moles/Vol] 12.1 mmol/L Normal [facility] Comment on above: Performed By: #### U CLINT, CMP, LIPID, DBIL, PHOS, MG #### [facility] [address] [place] [address] Dr. Brea Causey AST [Catalytic activity/Vol] 19 U/L Normal 15-37 [facility] Comment on above: Performed By: #### U CLINT, CMP, LIPID, DBIL, PHOS, MG #### [facility] [address] [place] [address] Dr. Brea Causey Bilirubin [Mass/Vol] 0.3 mg/dL Normal 0.2-1.0 [facility] Comment on above: Performed By: #### U CLINT, CMP, LIPID, DBIL, PHOS, MG #### [facility] [address] [place] [address] Dr. Brea Causey Calcium [Mass/Vol] 8.0 mg/dL Critically low 8.5-10.1 [facility] Comment on above: Performed By: #### U CLINT, CMP, LIPID, DBIL, PHOS, MG #### [facility] [address] [address] [address] Brea Causey Chloride [Moles/Vol] 96 mmol/L Critically low 98-107 [facility] Comment on above: Performed By: #### U CLINT, CMP, LIPID, DBIL, PHOS, MG #### [facility] [address] [address] [address] Brea Causey CO2 [Moles/Vol] 28.0 mmol/L Normal 21.0-32.0 [facility] Comment on above: Performed By: #### U CLINT, CMP, LIPID, DBIL, PHOS, MG #### [facility] [address] [address] [address] Brea Causey Creatinine [Mass/Vol] 1.07 mg/dL Normal 0.70-1.30 [facility] Comment on above: Performed By: #### U CLINT, CMP, LIPID, DBIL, PHOS, MG #### [facility] [address] [place] [address] Dr. Brea Causey EGFR-AF TUNISIAN >60 Normal >=60 [facility] Comment on above: Performed By: #### U CLINT, CMP, LIPID, DBIL, PHOS, MG #### [facility] [address] [place] [address] Dr. Brea Causey EGFR-NON AF TUNISIAN >60 Normal >=60 [facility] Comment on above: Performed By: #### U CLINT, CMP, LIPID, DBIL, PHOS, MG #### [facility] [address] [address] [address] Brea Causey Globulin (S) [Mass/Vol] 3.5 g/dL Normal [facility] Comment on above: Performed By: #### U CLINT, CMP, LIPID, DBIL, PHOS, MG #### [facility] [address] [address] [address] Brea Causey Glucose [Mass/Vol] 179 mg/dL Critically high 74-106 T [facility] Comment on above: Performed By: #### U CLINT, CMP, LIPID, DBIL, PHOS, MG #### [facility] [address] [place] [address] Dr. Brea Causey Potassium [Moles/Vol] 5.1 mmol/L Normal 3.5-5.1 [facility] Comment on above: Performed By: #### U CLINT, CMP, LIPID, DBIL, PHOS, MG #### [facility] [address] [place] [address] Dr. Brea Causey Protein [Mass/Vol] 7.3 g/dL Normal 6.4-8.2 [facility] Comment on above: Performed By: #### U CLINT, CMP, LIPID, DBIL, PHOS, MG #### [facility] [address] [place] [address] Dr. Brea Causey Sodium [Moles/Vol] 131 mmol/L Critically low 136-145 Th [facility] Comment on above: Performed By: #### U CLINT, CMP, LIPID, DBIL, PHOS, MG #### [facility] [address] [place] [address] Dr. Brea Causey Urea nitrogen [Mass/Vol] 10.0 mg/dL Normal 7.0-18.0 [facility] Comment on above: Performed By: #### U CLINT, CMP, LIPID, DBIL, PHOS, MG #### [facility] [address] [place] [address] Dr. Brea Causey Urea nitrogen/Creatinine [Mass ratio] 9.3 mg/mg Normal [facility] Comment on above: Performed By: #### U CLINT, CMP, LIPID, DBIL, PHOS, MG #### [facility] [address] [place] [address] Dr. Brea Causey URIC ACID SERUMon 08-30-2022 Urate [Mass/Vol] 6.0 mg/dL Normal 3.5-7.2 [facility] Comment on above: Performed By: #### U CLINT, CMP, LIPID, DBIL, PHOS, MG #### [facility] [address] [place] [address] Dr. Brea Causey FK506 (TACROLIMUS) WHOLE BLO ODon 03-25-2023 Tacrolimus (FK506), Blood 3.2 ng/mL Normal 2.0-20.0 [facility] Comment on above: Result Comment: Trou gh (immediately following transplant) 15.0 . Trough (steady state, 2 weeks or more after transplant): 3.0 - 8.0 . Performed by LC-MS/MS technology. Performed By: #### C BC #### [facility] [address] [place] [address] Dr. Brea Causey BILIRUBIN CONJUGATED (DIRECT )on 08-01-2022 BILI, CONJUGATED 0.1 mg/dL Normal 0.0-0.2 [facility] Comment on above: Performed By: #### U CLINT, CMP, LIPID, DBIL, PHOS, MG #### [facility] [address] [place] [address] Dr. Brea Causey CBC AUTO DIFFon 08-01-2022 BASO # 0.0 103/ul Normal 0.0-0.1 [facility] Comment on above: Performed By: #### C BC #### [facility] [address] [place] [address] Dr. Brea Causey Basophils/100 WBC (Bld) 0.7 % Normal 0.2-2.0 [facility] Comment on above: Performed By: #### C BC #### [facility] [address] [place] [address] Dr. Brea Causey EO # 0.1 103/ul Normal 0.0-0.7 [facility] Comment on above: Performed By: #### C BC #### [facility] [address] [place] [address] Dr. Brea Causey Eosinophils/100 WBC (Bld) 2.4 % Normal 0.9-7.0 [facility] Comment on above: Performed By: #### C BC #### [facility] [address] [place] [address] Dr. Brea Causey Erythrocyte distribution width (RBC) [Ratio] 13.3 % Normal 11.0-15.0 [facility] Comment on above: Performed By: #### C BC #### [facility] [address] [address] [address] Brea Causey Hematocrit (Bld) [Volume fraction] 36.5 % Critically low 42.0-54.0 [facility] Comment on above: Performed By: #### C BC #### [facility] [address] [address] [address] Brea Causey Hemoglobin (Bld) [Mass/Vol] 12.1 g/dL Critically low 14.0-18.0 [facility] Comment on above: Performed By: #### C BC #### [facility] [address] [address] [address] Brea Causey IG # 0.07 10e3/ul Critically high 0.00-0.03 [facility] Comment on above: Performed By: #### C BC #### [facility] [address] [place] [address] Dr. Brea Causey IG % 1.2 % Critically high 0.0-0.5 [facility] Comment on above: Performed By: #### C BC #### [facility] [address] [address] [address] Brea Causey LYMPH # 0.9 103/ul Critically low 1.2-3.8 [facility] Comment on above: Performed By: #### C BC #### [facility] [address] [place] [address] Dr. Brea Causey Lymphocytes/100 WBC (Bld) 14.5 % Critically low 20.5-60.0 [facility] Comment on above: Performed By: #### C BC #### [facility] [address] [place] [address] Dr. Brea Causey MANUAL DIFF REQ NO Normal [facility] Comment on above: Performed By: #### C BC #### [facility] [address] [place] [address] [address] Brea Causey MCH (RBC) [Entitic mass] 28.8 pg Normal 25.9-34.0 [facility] Comment on above: Performed By: #### C BC #### [facility] [address] [place] [address] Dr. Brea Causey MCHC (RBC) [Mass/Vol] 33.2 g/dL Normal 29.9-35.2 [facility] Comment on above: Performed By: #### C BC #### [facility] [address] [place] [address] Dr. Brea Causey MCV (RBC) [Entitic vol] 86.9 fL Normal 80.0-94.0 [facility] Comment on above: Performed By: #### C BC #### [facility] [address] [place] [address] Dr. Brea Causey MONO # 0.6 103/ul Normal 0.3-0.8 [facility] Comment on above: Performed By: #### C BC #### [facility] [address] [place] [address] Dr. Brea Causey Monocytes/100 WBC (Bld) 10.3 % Normal 1.7-12.0 [facility] Comment on above: Performed By: #### C BC #### [facility] [address] [place] [address] Dr. Brea Causey NEUT # 4.2 103/ul Normal 1.4-6.5 [facility] Comment on above: Performed By: #### C BC #### [facility] [address] [place] [address] Dr. Brea Causey Neutrophils/100 WBC (Bld) 70.9 % Normal 43.0-75.0 [facility] Comment on above: Performed By: #### C BC #### [facility] [address] [place] [address] Dr. Brea Causey Platelet mean volume (Bld) [Entitic vol] 9.1 fL Critically low 9.5-13.5 [facility] Comment on above: Performed By: #### C BC #### [facility] [address] [place] [address] Dr. Brea Causey PLT 248 103/ul Normal 150-450 [facility] Comment on above: Performed By: #### C BC #### [facility] [address] [place] [address] Dr. Brea Causey RBC 4.20 106/ul Critically low 4.70-6.10 [facility] Comment on above: Performed By: #### C BC #### [facility] [address] [place] [address] [address] Brea Causey WBC 5.9 103/ul Normal 4.0-11.0 [facility] Comment on above: Performed By: #### C BC #### [facility] [address] [place] [address] [address] Brea Causey LIPID PROFILEon 08-01-2022 CHOL-HDL RATIO NORM SEE BELOW Normal [facility] Comment on above: Result Comment: 3.3 - 4.4 LOW RISK 4.4 - 7.1 AVERAGE RISK 7.1 - 11.0 MODERATE RISK >11.0 HIGH RISK Performed By: #### U CLINT, CMP, LIPID, DBIL, PHOS, MG #### [facility] [address] [place] [address] Dr. Brea Causey Cholesterol [Mass/Vol] 95 mg/dL Normal <=200 [facility] Comment on above: Performed By: #### U CLINT, CMP, LIPID, DBIL, PHOS, MG #### [facility] [address] [place] [address] [address] Brea Causey Cholesterol in HDL [Mass/Vol] 49 mg/dL Normal 40-60 [facility] Comment on above: Performed By: #### U CLINT, CMP, LIPID, DBIL, PHOS, MG #### [facility] [address] [place] [address] [address] Brea Causey Cholesterol in LDL [Mass/Vol] 35.4 mg/dL Normal [facility] Comment on above: Performed By: #### U CLINT, CMP, LIPID, DBIL, PHOS, MG #### [facility] [address] [place] [address] Dr. Brea Causey Cholesterol.total/Cho lesterol in HDL [Mass ratio] 1.9 {ratio} Normal [facility] Comment on above: Performed By: #### U CLINT, CMP, LIPID, DBIL, PHOS, MG #### [facility] [address] [place] [address] [address] Brea Causey HDL NORMAL > or = 60 mg/dl - LO W CARDIOVASCULAR RISK <40 mg/dl - HIGH CARDIOVASCULAR RISK Normal [facility] Comment on above: Performed By: #### U CLINT, CMP, LIPID, DBIL, PHOS, MG #### [facility] [address] [place] [address] [address] Brea Causey LDL CALC NORMAL SEE BELOW Normal [facility] Comment on above: Result Comment: <100 mg/dl OPTIMAL 100 - 129 mg/dl NEAR OR ABOVE OPTIMAL 130 - 159 mg/dl BORDERLINE HIGH 160 - 189 mg/dl HIGH >190 mg/dl VERY HIGH Performed By: #### U CLINT, CMP, LIPID, DBIL, PHOS, MG #### [facility] [address] [place] [address] [address] Brea Causey Triglyceride [Mass/Vol] 53 mg/dL Normal <=150 [facility] Comment on above: Performed By: #### U CLINT, CMP, LIPID, DBIL, PHOS, MG #### [facility] [address] [place] [address] [address] Brea Causey VLDL CALC 10.6 mg/dL Normal [facility] Comment on above: Performed By: #### U CLINT, CMP, LIPID, DBIL, PHOS, MG #### [facility] [address] [place] [address] [address] Brea Causey MAGNESIUMon 08-01-2022 Magnesium [Mass/Vol] 1.5 mg/dL Critically low 1.8-2.4 [facility] Comment on above: Performed By: #### U CLINT, CMP, LIPID, DBIL, PHOS, MG #### [facility] [address] [place] [address] [address] Brea Causey PHOSPHORUSon 08-01-2022 Phosphate [Mass/Vol] 3.8 mg/dL Normal 2.6-4.7 [facility] Comment on above: Performed By: #### U CLINT, CMP, LIPID, DBIL, PHOS, MG #### [facility] [address] [place] [address] Dr. Brea Causey PROF 14(COMP METB)on 023 Albumin [Mass/Vol] 4.1 g/dL Normal 3.4-5.0 [facility] Comment on above: Performed By: #### U CLINT, CMP, LIPID, DBIL, PHOS, MG #### [facility] [address] [place] [address] Dr. Brea Causey Albumin/Globulin [Mass ratio] 1.3 {ratio} Normal [facility] Comment on above: Performed By: #### U CLINT, CMP, LIPID, DBIL, PHOS, MG #### [facility] [address] [place] [address] Dr. Brea Causey ALP [Catalytic activity/Vol] 197 U/L Critically high 46-116 [facility] Comment on above: Performed By: #### U CLINT, CMP, LIPID, DBIL, PHOS, MG #### [facility] [address] [place] [address] Dr. Brea Causey ALT [Catalytic activity/Vol] 26 U/L Normal 16-63 [facility] Comment on above: Performed By: #### U CLINT, CMP, LIPID, DBIL, PHOS, MG #### [facility] [address] [place] [address] Dr. Brea Causey Anion gap [Moles/Vol] 12.6 mmol/L Normal [facility] Comment on above: Performed By: #### U CLINT, CMP, LIPID, DBIL, PHOS, MG #### [facility] [address] [place] [address] Dr. Brea Causey AST [Catalytic activity/Vol] 20 U/L Normal 15-37 [facility] Comment on above: Performed By: #### U CLINT, CMP, LIPID, DBIL, PHOS, MG #### [facility] [address] [place] [address] Dr. Brea Causey Bilirubin [Mass/Vol] 0.4 mg/dL Normal 0.2-1.0 [facility] Comment on above: Performed By: #### U CLINT, CMP, LIPID, DBIL, PHOS, MG #### [facility] [address] [place] [address] [address] Brea Causey Calcium [Mass/Vol] 7.9 mg/dL Critically low 8.5-10.1 Th e [facility] Comment on above: Performed By: #### U CLINT, CMP, LIPID, DBIL, PHOS, MG #### [facility] [address] [place] [address] [address] Brea Causey Chloride [Moles/Vol] 97 mmol/L Critically low 98-107 [facility] Comment on above: Performed By: #### U CLINT, CMP, LIPID, DBIL, PHOS, MG #### [facility] [address] [place] [address] Dr. Brea Causey CO2 [Moles/Vol] 28.9 mmol/L Normal 21.0-32.0 [facility] Comment on above: Performed By: #### U CLINT, CMP, LIPID, DBIL, PHOS, MG #### [facility] [address] [place] [address] Dr. Brea Causey Creatinine [Mass/Vol] 0.98 mg/dL Normal 0.70-1.30 [facility] Comment on above: Performed By: #### U CLINT, CMP, LIPID, DBIL, PHOS, MG #### [facility] [address] [place] [address] Dr. Brea Causey EGFR-AF TUNISIAN >60 Normal >=60 [facility] Comment on above: Performed By: #### U CLINT, CMP, LIPID, DBIL, PHOS, MG #### [facility] [address] [place] [address] Dr. Brea Causey EGFR-NON AF TUNISIAN >60 Normal >=60 [facility] Comment on above: Performed By: #### U CLINT, CMP, LIPID, DBIL, PHOS, MG #### [facility] [address] [place] [address] Dr. Brea Causey Globulin (S) [Mass/Vol] 3.2 g/dL Normal [facility] Comment on above: Performed By: #### U CLINT, CMP, LIPID, DBIL, PHOS, MG #### [facility] [address] [place] [address] [address] Brea Causey Glucose [Mass/Vol] 174 mg/dL Critically high 74-106 [facility] Comment on above: Performed By: #### U CLINT, CMP, LIPID, DBIL, PHOS, MG #### [facility] [address] [place] [address] [address] Brea Causey Potassium [Moles/Vol] 4.5 mmol/L Normal 3.5-5.1 [facility] Comment on above: Performed By: #### U CLINT, CMP, LIPID, DBIL, PHOS, MG #### [facility] [address] [place] [address] [address] Brea Causey Protein [Mass/Vol] 7.3 g/dL Normal 6.4-8.2 [facility] Comment on above: Performed By: #### U CLINT, CMP, LIPID, DBIL, PHOS, MG #### [facility] [address] [place] [address] [address] Brea Causey Sodium [Moles/Vol] 134 mmol/L Critically low 136-145 Th [facility] Comment on above: Performed By: #### U CLINT, CMP, LIPID, DBIL, PHOS, MG #### [facility] [address] [place] [address] [address] Brea Causey Urea nitrogen [Mass/Vol] 8.0 mg/dL Normal 7.0-18.0 [facility] Comment on above: Performed By: #### U CLINT, CMP, LIPID, DBIL, PHOS, MG #### [facility] [address] [place] [address] Dr. Brea Causey Urea nitrogen/Creatinine [Mass ratio] 8.2 mg/mg Normal [facility] Comment on above: Performed By: #### U CLINT, CMP, LIPID, DBIL, PHOS, MG #### [facility] [address] [place] [address] Dr. Brea Causey URIC ACID SERUMon 08-01-2022 Urate [Mass/Vol] 5.8 mg/dL Normal 3.5-7.2 [facility] Comment on above: Performed By: #### U CLINT, CMP, LIPID, DBIL, PHOS, MG #### [facility] [address] [place] [address] Dr. Brea Causey FK506 (TACROLIMUS) WHOLE BLO ODon 07-07-2022 Tacrolimus (FK506), Blood 3.6 ng/mL Normal 2.0-20.0 [facility] Comment on above: Result Comment: Trou gh (immediately following transplant) 15.0 . Trough (steady state, 2 weeks or more after transplant): 3.0 - 8.0 . Performed by LC-MS/MS technology. Performed By: #### C BC #### [facility] [address] [place] [address] Dr. Brea Causey BILIRUBIN CONJUGATED (DIRECT )on 07-04-2022 BILI, CONJUGATED 0.1 mg/dL Normal 0.0-0.2 [facility] Comment on above: Performed By: #### B KVIRUS #### [facility] [address] [place] [address] Dr. Brea Causey CBC AUTO DIFFon 07-04-2022 BASO # 0.0 103/ul Normal 0.0-0.1 [facility] Comment on above: Performed By: #### U CLINT, CMP, LIPID, DBIL, PHOS, MG #### [facility] [address] [place] [address] Dr. Brea Causey Basophils/100 WBC (Bld) 0.5 % Normal 0.2-2.0 [facility] Comment on above: Performed By: #### U CLINT, CMP, LIPID, DBIL, PHOS, MG #### [facility] [address] [place] [address] Dr. Brea Causey EO # 0.2 103/ul Normal 0.0-0.7 [facility] Comment on above: Performed By: #### U CLINT, CMP, LIPID, DBIL, PHOS, MG #### [facility] [address] [place] [address] Dr. Brea Causey Eosinophils/100 WBC (Bld) 2.6 % Normal 0.9-7.0 [facility] Comment on above: Performed By: #### U CLINT, CMP, LIPID, DBIL, PHOS, MG #### [facility] [address] [place] [address] [address] Brea Causey Erythrocyte distribution width (RBC) [Ratio] 13.3 % Normal 11.0-15.0 [facility] Comment on above: Performed By: #### U CLINT, CMP, LIPID, DBIL, PHOS, MG #### [facility] [address] [place] [address] [address] Brea Causey Hematocrit (Bld) [Volume fraction] 37.2 % Critically low 42.0-54.0 [facility] Comment on above: Performed By: #### U CLINT, CMP, LIPID, DBIL, PHOS, MG #### [facility] [address] [place] [address] Dr. Brea Causey Hemoglobin (Bld) [Mass/Vol] 12.4 g/dL Critically low 14.0-18.0 [facility] Comment on above: Performed By: #### U CLINT, CMP, LIPID, DBIL, PHOS, MG #### [facility] [address] [place] [address] Dr. Brea Causey IG # 0.09 10e3/ul Critically high 0.00-0.03 [facility] Comment on above: Performed By: #### U CLINT, CMP, LIPID, DBIL, PHOS, MG #### [facility] [address] [place] [address] Dr. Brea Causey IG % 1.4 % Critically high 0.0-0.5 [facility] Comment on above: Performed By: #### U CLINT, CMP, LIPID, DBIL, PHOS, MG #### [facility] [address] [place] [address] [address] Brea Causey LYMPH # 1.0 103/ul Critically low 1.2-3.[address] [facility] Comment on above: Performed By: #### U CLINT, CMP, LIPID, DBIL, PHOS, MG #### [facility] [address] [place] [address] Dr. Brea Causey Lymphocytes/100 WBC (Bld) 15.2 % Critically low 20.5-60.0 [facility] Comment on above: Performed By: #### U CLINT, CMP, LIPID, DBIL, PHOS, MG #### [facility] [address] [place] [address] Dr. Brea Causey MANUAL DIFF REQ NO Normal [facility] Comment on above: Performed By: #### U CLINT, CMP, LIPID, DBIL, PHOS, MG #### [facility] [address] [place] [address] Dr. Brea Causey MCH (RBC) [Entitic mass] 28.8 pg Normal 25.9-34.0 [facility] Comment on above: Performed By: #### U CLINT, CMP, LIPID, DBIL, PHOS, MG #### [facility] [address] [place] [address] Dr. Brea Causey MCHC (RBC) [Mass/Vol] 33.3 g/dL Normal 29.9-35.2 [facility] Comment on above: Performed By: #### U CLINT, CMP, LIPID, DBIL, PHOS, MG #### [facility] [address] [place] [address] Dr. Brea Causey MCV (RBC) [Entitic vol] 86.5 fL Normal 80.0-94.0 [facility] Comment on above: Performed By: #### U CLINT, CMP, LIPID, DBIL, PHOS, MG #### [facility] [address] [place] [address] Dr. Brea Causey MONO # 0.7 103/ul Normal 0.3-0.8 [facility] Comment on above: Performed By: #### U CLINT, CMP, LIPID, DBIL, PHOS, MG #### [facility] [address] [place] [address] Dr. Brea Causey Monocytes/100 WBC (Bld) 10.0 % Normal 1.7-12.0 [facility] Comment on above: Performed By: #### U CLINT, CMP, LIPID, DBIL, PHOS, MG #### [facility] [address] [place] [address] Dr. Brea Causey NEUT # 4.6 103/ul Normal 1.4-6.5 [facility] Comment on above: Performed By: #### U CLINT, CMP, LIPID, DBIL, PHOS, MG #### [facility] [address] [place] [address] [address] Brea Causey Neutrophils/100 WBC (Bld) 70.3 % Normal 43.0-75.0 [facility] Comment on above: Performed By: #### U CLINT, CMP, LIPID, DBIL, PHOS, MG #### [facility] [address] [place] [address] [address] Brea Causey Platelet mean volume (Bld) [Entitic vol] 8.8 fL Critically low 9.5-13.5 [facility] Comment on above: Performed By: #### U CLINT, CMP, LIPID, DBIL, PHOS, MG #### [facility] [address] [place] [address] Dr. Brea Causey PLT 240 103/ul Normal 150-450 [facility] Comment on above: Performed By: #### U CLINT, CMP, LIPID, DBIL, PHOS, MG #### [facility] [address] [place] [address] Dr. Brea Causey RBC 4.30 106/ul Critically low 4.70-6.10 [facility] Comment on above: Performed By: #### U CLINT, CMP, LIPID, DBIL, PHOS, MG #### [facility] [address] [place] [address] Dr. Brea Causey WBC 6.5 103/ul Normal 4.0-11.0 [facility] Comment on above: Performed By: #### U CLINT, CMP, LIPID, DBIL, PHOS, MG #### [facility] [address] [place] [address] Dr. Brea Causey LIPID PROFILEon 07-04-2022 CHOL-HDL RATIO NORM SEE BELOW Normal [facility] Comment on above: Result Comment: 3.3 - 4.4 LOW RISK 4.4 - 7.1 AVERAGE RISK 7.1 - 11.0 MODERATE RISK >11.0 HIGH RISK Performed By: #### U CLINT, CMP, LIPID, DBIL, PHOS, MG #### [facility] [address] [address] [address] Brea Causey Cholesterol [Mass/Vol] 86 mg/dL Normal <=200 [facility] Comment on above: Performed By: #### U CLINT, CMP, LIPID, DBIL, PHOS, MG #### [facility] [address] [address] [address] Brea Causey Cholesterol in HDL [Mass/Vol] 44 mg/dL Normal 40-60 [facility] Comment on above: Performed By: #### U CLINT, CMP, LIPID, DBIL, PHOS, MG #### [facility] [address] [address] [address] Brea Causey Cholesterol in LDL [Mass/Vol] 28.0 mg/dL Normal [facility] Comment on above: Performed By: #### U CLINT, CMP, LIPID, DBIL, PHOS, MG #### [facility] [address] [place] [address] Dr. Brea Causey Cholesterol.total/Cho lesterol in HDL [Mass ratio] 2.0 {ratio} Normal [facility] Comment on above: Performed By: #### U CLINT, CMP, LIPID, DBIL, PHOS, MG #### [facility] [address] [address] [address] Brea Causey HDL NORMAL > or = 60 mg/dl - LO W CARDIOVASCULAR RISK <40 mg/dl - HIGH CARDIOVASCULAR RISK Normal [facility] Comment on above: Performed By: #### U CLINT, CMP, LIPID, DBIL, PHOS, MG #### [facility] [address] [address] [address] Brea Causey LDL CALC NORMAL SEE BELOW Normal [facility] Comment on above: Result Comment: <100 mg/dl OPTIMAL 100 - 129 mg/dl NEAR OR ABOVE OPTIMAL 130 - 159 mg/dl BORDERLINE HIGH 160 - 189 mg/dl HIGH >190 mg/dl VERY HIGH Performed By: #### U CLINT, CMP, LIPID, DBIL, PHOS, MG #### [facility] [address] [address] [address] Brea Causey Triglyceride [Mass/Vol] 70 mg/dL Normal <=150 [facility] Comment on above: Performed By: #### U CLINT, CMP, LIPID, DBIL, PHOS, MG #### [facility] [address] [place] [address] Dr. Brea Causey VLDL CALC 14.0 mg/dL Normal [facility] Comment on above: Performed By: #### U CLINT, CMP, LIPID, DBIL, PHOS, MG #### [facility] [address] [place] [address] Dr. Brea Causey MAGNESIUMon 07-04-2022 Magnesium [Mass/Vol] 1.4 mg/dL Critically low 1.8-2.4 [facility] Comment on above: Performed By: #### U CLINT, CMP, LIPID, DBIL, PHOS, MG #### [facility] [address] [place] [address] Dr. Brea Causey PHOSPHORUSon 07-04-2022 Phosphate [Mass/Vol] 4.1 mg/dL Normal 2.6-4.7 [facility] Comment on above: Performed By: #### U CLINT, CMP, LIPID, DBIL, PHOS, MG #### [facility] [address] [place] [address] Dr. Brea Causey PROF 14(COMP METB)on 023 Albumin [Mass/Vol] 4.0 g/dL Normal 3.4-5.0 [facility] Comment on above: Performed By: #### B KVIRUS #### [facility] [address] [place] [address] Dr. Brea Causey Albumin/Globulin [Mass ratio] 1.3 {ratio} Normal [facility] Comment on above: Performed By: #### B KVIRUS #### [facility] [address] [place] [address] Dr. Brea Causey ALP [Catalytic activity/Vol] 212 U/L Critically high 46-116 [facility] Comment on above: Performed By: #### B KVIRUS #### [facility] [address] [address] [address] Brea Causey ALT [Catalytic activity/Vol] 31 U/L Normal 16-63 [facility] Comment on above: Performed By: #### B KVIRUS #### [facility] [address] [place] [address] Dr. Brea Causey Anion gap [Moles/Vol] 11.9 mmol/L Normal [facility] Comment on above: Performed By: #### B KVIRUS #### [facility] [address] [place] [address] Dr. Brea Causey AST [Catalytic activity/Vol] 21 U/L Normal 15-37 [facility] Comment on above: Performed By: #### B KVIRUS #### [facility] [address] [place] [address] Dr. Brea Causey Bilirubin [Mass/Vol] 0.3 mg/dL Normal 0.2-1.0 [facility] Comment on above: Performed By: #### B KVIRUS #### [facility] [address] [place] [address] Dr. Brea Causey Calcium [Mass/Vol] 8.1 mg/dL Critically low 8.5-10.1 [facility] Comment on above: Performed By: #### B KVIRUS #### [facility] [address] [place] [address] Dr. Brea Causey Chloride [Moles/Vol] 97 mmol/L Critically low 98-107 [facility] Comment on above: Performed By: #### B KVIRUS #### [facility] [address] [place] [address] Dr. Brea Causey CO2 [Moles/Vol] 26.8 mmol/L Normal 21.0-32.0 [facility] Comment on above: Performed By: #### B KVIRUS #### [facility] [address] [place] [address] Dr. Brea Causey Creatinine [Mass/Vol] 0.99 mg/dL Normal 0.70-1.30 [facility] Comment on above: Performed By: #### B KVIRUS #### [facility] [address] [place], [place] [id number] Dr. Brea Causey EGFR-AF TUNISIAN >60 Normal >=60 [facility] Comment on above: Performed By: #### B KVIRUS #### [facility] [address] [place] [address] Dr. Brea Causey EGFR-NON AF TUNISIAN >60 Normal >=60 [facility] Comment on above: Performed By: #### B KVIRUS #### [facility] [address] [place] [address] Dr. Brea Causey Globulin (S) [Mass/Vol] 3.2 g/dL Normal [facility] Comment on above: Performed By: #### B KVIRUS #### [facility] [address] [place] [address] Dr. Brea Causey Glucose [Mass/Vol] 169 mg/dL Critically high 74-106 T [facility] Comment on above: Performed By: #### B KVIRUS #### [facility] [address] [place] [address] Dr. Brea Causey Potassium [Moles/Vol] 4.7 mmol/L Normal 3.5-5.1 [facility] Comment on above: Performed By: #### B KVIRUS #### [facility] [address] [place] [address] Dr. Brea Causey Protein [Mass/Vol] 7.2 g/dL Normal 6.4-8.2 [facility] Comment on above: Performed By: #### B KVIRUS #### [facility] [address] [place] [address] Dr. Brea Causey Sodium [Moles/Vol] 131 mmol/L Critically low 136-145 Th [facility] Comment on above: Performed By: #### B KVIRUS #### [facility] [address] [place] [address] Dr. Brea Causey Urea nitrogen [Mass/Vol] 9.0 mg/dL Normal 7.0-18.0 [facility] Comment on above: Performed By: #### B KVIRUS #### [facility] [address] [place] [address] Dr. Brea Causey Urea nitrogen/Creatinine [Mass ratio] 9.1 mg/mg Normal [facility] Comment on above: Performed By: #### B KVIRUS #### [facility] [address] [place] [address] Dr. Brea Causey URIC ACID SERUMon 07-04-2022 Urate [Mass/Vol] 6.1 mg/dL Normal 3.5-7.2 [facility] Comment on above: Performed By: #### U CLINT, CMP, LIPID, DBIL, PHOS, MG #### [facility] [address] [place] [address] Dr. Brea Causey TESTOSTERONE, FREE,DIRECT, T OTALon 05-28-2022 Free Testosterone(Direct) 5.9 pg/mL Critically low 6.6-18.1 [facility] Comment on above: Result Comment: Perf ormed at: BN Performed By: #### U CLINT, CMP, LIPID, DBIL, PHOS, MG #### [facility] [address] [place] [address] Dr. Brea Causey Testosterone [Mass/Vol] 513 ng/dL Normal 264-916 [facility] Comment on above: Result Comment: Adul t male reference interval is based on a population of healthy nonobese males (BMI <30) between 19 and 39 years old. Steven et.al. JCEM 2017,102;4307-5889. PMID: [id number]. Performed at: CB Performed By: #### U CLINT, CMP, LIPID, DBIL, PHOS, MG #### [facility] [address] [place] [address] Dr. Brea Causey FK506 (TACROLIMUS) WHOLE BLO ODon 05-26-2022 Tacrolimus (FK506), Blood 3.9 ng/mL Normal 2.0-20.0 [facility] Comment on above: Result Comment: Trou gh (immediately following transplant) 15.0 . Trough (steady state, 2 weeks or more after transplant): 3.0 - 8.0 . Performed by LC-MS/MS technology. Performed By: #### B KVIRUS #### [facility] [address] [place] [address] Dr. Brea Causey BK VIRUS PCR QUANTon 023 BKV DNA QUANT PCR PLASMA Negative Normal Negative [facility] Comment on above: Result Comment: No B K DNA detected. . The linear range of the assay is 22 - 100,000,000 IU/mL. Performed By: #### U CLINT, CMP, LIPID, DBIL, PHOS, MG #### [facility] [address] [place] [address] Dr. Brea Causey Log10 BKV DNA Plasma Normal [facility] Comment on above: Performed By: #### U CLINT, CMP, LIPID, DBIL, PHOS, MG #### [facility] [address] [place] [address] Dr. Brea Causey BILIRUBIN CONJUGATED (DIRECT )on 05-23-2022 BILI, CONJUGATED 0.2 mg/dL Normal 0.0-0.2 [facility] Comment on above: Performed By: #### C BC #### [facility] [address] [place] [address] Dr. Brea Causey CBC AUTO DIFFon 05-23-2022 BASO # 0.0 103/ul Normal 0.0-0.1 [facility] Comment on above: Performed By: #### B KVIRUS #### [facility] [address] [place] [address] Dr. Brea Causey Basophils/100 WBC (Bld) 0.6 % Normal 0.2-2.0 [facility] Comment on above: Performed By: #### B KVIRUS #### [facility] [address] [place] [address] Dr. Brea Causey EO # 0.1 103/ul Normal 0.0-0.7 [facility] Comment on above: Performed By: #### B KVIRUS #### [facility] [address] [place] [address] Dr. Brea Causey Eosinophils/100 WBC (Bld) 1.7 % Normal 0.9-7.0 [facility] Comment on above: Performed By: #### B KVIRUS #### [facility] [address] [place] [address] Dr. Brea Causey Erythrocyte distribution width (RBC) [Ratio] 13.4 % Normal 11.0-15.0 [facility] Comment on above: Performed By: #### B KVIRUS #### [facility] [address] [place] [address] Dr. Brea Causey Hematocrit (Bld) [Volume fraction] 38.8 % Critically low 42.0-54.0 [facility] Comment on above: Performed By: #### B KVIRUS #### [facility] [address] [place] [address] Dr. Brea Causey Hemoglobin (Bld) [Mass/Vol] 12.4 g/dL Critically low 14.0-18.0 [facility] Comment on above: Performed By: #### B KVIRUS #### [facility] [address] [place] [address] Dr. Brea Causey IG # 0.07 10e3/ul Critically high 0.00-0.03 [facility] Comment on above: Performed By: #### B KVIRUS #### [facility] [address] [place] [address] Dr. Brea Causey IG % 1.1 % Critically high 0.0-0.5 [facility] Comment on above: Performed By: #### B KVIRUS #### [facility] [address] [place] [address] Dr. Brea Causey LYMPH # 0.9 103/ul Critically low 1.2-3.8 [facility] Comment on above: Performed By: #### B KVIRUS #### [facility] [address] [place] [address] Dr. Brea Causey Lymphocytes/100 WBC (Bld) 14.1 % Critically low 20.5-60.0 [facility] Comment on above: Performed By: #### B KVIRUS #### [facility] [address] [place] [address] Dr. Brea Causey MANUAL DIFF REQ NO Normal [facility] Comment on above: Performed By: #### B KVIRUS #### [facility] [address] [place] [address] Dr. Brea Causey MCH (RBC) [Entitic mass] 29.3 pg Normal 25.9-34.0 [facility] Comment on above: Performed By: #### B KVIRUS #### [facility] [address] [place] [address] Dr. Brea Causey MCHC (RBC) [Mass/Vol] 32.0 g/dL Normal 29.9-35.2 [facility] Comment on above: Performed By: #### B KVIRUS #### [facility] [address] [place] [address] Dr. Brea Causey MCV (RBC) [Entitic vol] 91.7 fL Normal 80.0-94.0 [facility] Comment on above: Performed By: #### B KVIRUS #### [facility] [address] [place] [address] Dr. Brea Causey MONO # 0.7 103/ul Normal 0.3-0.8 [facility] Comment on above: Performed By: #### B KVIRUS #### [facility] [address] [place] [address] Dr. Brea Causey Monocytes/100 WBC (Bld) 10.0 % Normal 1.7-12.0 [facility] Comment on above: Performed By: #### B KVIRUS #### [facility] [address] [place] [address] Dr. Brea Causey NEUT # 4.7 103/ul Normal 1.4-6.5 [facility] Comment on above: Performed By: #### B KVIRUS #### [facility] [address] [place] [address] Dr. Brea Causey Neutrophils/100 WBC (Bld) 72.5 % Normal 43.0-75.0 [facility] Comment on above: Performed By: #### B KVIRUS #### [facility] [address] [place] [address] Dr. Brea Causey Platelet mean volume (Bld) [Entitic vol] 9.4 fL Critically low 9.5-13.5 [facility] Comment on above: Performed By: #### B KVIRUS #### [facility] [address] [place] [address] Dr. Brea Causey PLT 256 103/ul Normal 150-450 [facility] Comment on above: Performed By: #### B KVIRUS #### [facility] [address] [address] [address] Brea Causey RBC 4.23 106/ul Critically low 4.70-6.10 [facility] Comment on above: Performed By: #### B KVIRUS #### [facility] [address] [address] [address] Brea Causey WBC 6.5 103/ul Normal 4.0-11.0 [facility] Comment on above: Performed By: #### B KVIRUS #### [facility] [address] [place] [address] Dr. Brea Causey GLYCOHEMOGLOBIN A1Con 2022 ADA RECOMMENDATION SEE BELOW Normal [facility] Comment on above: Result Comment: ADA RECOMMENDED LIMIT 4.0 - 6.0 ADA THERAPEUTIC TARGET < 7.0 ACTION SUGGESTED > 7.0 Performed By: #### U CLINT, CMP, LIPID, DBIL, PHOS, MG #### [facility] [address] [address] [address] Brea Causey Glucose [Mass/Vol] 160 mg/dL Normal [facility] Comment on above: Performed By: #### U CLINT, CMP, LIPID, DBIL, PHOS, MG #### [facility] [address] [address] [address] Brea Causey HbA1c (Bld) [Mass fraction] 7.2 % Critically high 4.5-6.2 [facility] Comment on above: Performed By: #### U CLITN, CMP, LIPID, DBIL, PHOS, MG #### [facility] [address] [address] [address] Brea Causey LIPID PROFILEon 05-23-2022 CHOL-HDL RATIO NORM SEE BELOW Normal [facility] Comment on above: Result Comment: 3.3 - 4.4 LOW RISK 4.4 - 7.1 AVERAGE RISK 7.1 - 11.0 MODERATE RISK >11.0 HIGH RISK Performed By: #### C BC #### [facility] [address] [address] [address] Brea Causey Cholesterol [Mass/Vol] 87 mg/dL Normal <=200 [facility] Comment on above: Performed By: #### C BC #### [facility] [address] [address] [address] Brea Causey Cholesterol in HDL [Mass/Vol] 54 mg/dL Normal 40-60 [facility] Comment on above: Performed By: #### C BC #### [facility] [address] [address] [address] Brea Causey Cholesterol in LDL [Mass/Vol] 24.6 mg/dL Normal [facility] Comment on above: Performed By: #### C BC #### [facility] [address] [address] [address] Brea Causey Cholesterol.total/Cho lesterol in HDL [Mass ratio] 1.6 {ratio} Normal [facility] Comment on above: Performed By: #### C BC #### [facility] [address] [address] [address] Brea Causey HDL NORMAL > or = 60 mg/dl - LO W CARDIOVASCULAR RISK <40 mg/dl - HIGH CARDIOVASCULAR RISK Normal [facility] Comment on above: Performed By: #### C BC #### [facility] [address] [address] [address] Brea Causey LDL CALC NORMAL SEE BELOW Normal [facility] Comment on above: Result Comment: <100 mg/dl OPTIMAL 100 - 129 mg/dl NEAR OR ABOVE OPTIMAL 130 - 159 mg/dl BORDERLINE HIGH 160 - 189 mg/dl HIGH >190 mg/dl VERY HIGH Performed By: #### C BC #### [facility] [address] [address] [address] Brea Causey Triglyceride [Mass/Vol] 42 mg/dL Normal <=150 [facility] Comment on above: Performed By: #### C BC #### [facility] [address] [address] [address] Brea Causey VLDL CALC 8.4 mg/dL Normal [facility] Comment on above: Performed By: #### C BC #### [facility] [address] [place] [address] Dr. Brea Causey MAGNESIUMon 05-23-2022 Magnesium [Mass/Vol] 1.4 mg/dL Critically low 1.8-2.4 [facility] Comment on above: Performed By: #### C BC #### [facility] [address] [place] [address] Dr. Brea Causey PHOSPHORUSon 05-23-2022 Phosphate [Mass/Vol] 3.6 mg/dL Normal 2.6-4.7 [facility] Comment on above: Performed By: #### C BC #### [facility] [address] [place] [address] Dr. Brea Causey PROF 14(COMP METB)on 023 Albumin [Mass/Vol] 3.9 g/dL Normal 3.4-5.0 [facility] Comment on above: Performed By: #### C BC #### [facility] [address] [place] [address] Dr. Brea Causey Albumin/Globulin [Mass ratio] 1.2 {ratio} Normal [facility] Comment on above: Performed By: #### C BC #### [facility] [address] [place] [address] Dr. Brea Causey ALP [Catalytic activity/Vol] 190 U/L Critically high 46-116 [facility] Comment on above: Performed By: #### C BC #### [facility] [address] [place] [address] Dr. Brea Causey ALT [Catalytic activity/Vol] 26 U/L Normal 16-63 [facility] Comment on above: Performed By: #### C BC #### [facility] [address] [place] [address] Dr. Brea Causey Anion gap [Moles/Vol] 13.1 mmol/L Normal [facility] Comment on above: Performed By: #### C BC #### [facility] [address] [place] [address] Dr. Brea Causey AST [Catalytic activity/Vol] 18 U/L Normal 15-37 [facility] Comment on above: Performed By: #### C BC #### [facility] [address] [address] [address] Brea Causey Bilirubin [Mass/Vol] 0.4 mg/dL Normal 0.2-1.0 [facility] Comment on above: Performed By: #### C BC #### [facility] [address] [address] [address] Brea Causey Calcium [Mass/Vol] 7.8 mg/dL Critically low 8.5-10.1 Th [facility] Comment on above: Performed By: #### C BC #### [facility] [address] [address] [address] Brea Causey Chloride [Moles/Vol] 95 mmol/L Critically low 98-107 [facility] Comment on above: Performed By: #### C BC #### [facility] [address] [address] [address] Brea Causey CO2 [Moles/Vol] 28.8 mmol/L Normal 21.0-32.0 [facility] Comment on above: Performed By: #### C BC #### [facility] [address] [address] [address] Brea Causey Creatinine [Mass/Vol] 1.03 mg/dL Normal 0.70-1.30 [facility] Comment on above: Performed By: #### C BC #### [facility] [address] [address] [address] Brea Causey EGFR-AF TUNISIAN >60 Normal >=60 [facility] Comment on above: Performed By: #### C BC #### [facility] [address] [address] [address] Brea Causey EGFR-NON AF TUNISIAN >60 Normal >=60 [facility] Comment on above: Performed By: #### C BC #### [facility] [address] [place] [address] Dr. Brea Causey Globulin (S) [Mass/Vol] 3.2 g/dL Normal [facility] Comment on above: Performed By: #### C BC #### [facility] [address] [address] [address] Brea Causey Glucose [Mass/Vol] 155 mg/dL Critically high 74-106 T [facility] Comment on above: Performed By: #### C BC #### [facility] [address] [address] [address] Brea Causey Potassium [Moles/Vol] 4.9 mmol/L Normal 3.5-5.1 [facility] Comment on above: Performed By: #### C BC #### [facility] [address] [address] [address] Brea Causey Protein [Mass/Vol] 7.1 g/dL Normal 6.4-8.2 [facility] Comment on above: Performed By: #### C BC #### [facility] [address] [address] [address] Brea Causey Sodium [Moles/Vol] 132 mmol/L Critically low 136-145 [facility] Comment on above: Performed By: #### C BC #### [facility] [address] [address] [address] Brea Causey Urea nitrogen [Mass/Vol] 8.0 mg/dL Normal 7.0-18.0 [facility] Comment on above: Performed By: #### C BC #### [facility] [address] [address] [address] Brea Causey Urea nitrogen/Creatinine [Mass ratio] 7.8 mg/mg Normal [facility] Comment on above: Performed By: #### C BC #### [facility] [address] [address] [address] Brea Causey URIC ACID SERUMon 05-23-2022 Urate [Mass/Vol] 5.6 mg/dL Normal 3.5-7.2 [facility] Comment on above: Performed By: #### C BC #### [facility] [address] [address] [address] Brea Causey TESTOSTERONE, FREE,DIRECT, T OTALon 05-03-2022 Free Testosterone(Direct) 7.4 pg/mL Normal 6.6-18.1 [facility] Comment on above: Result Comment: Perf ormed at: BN Performed By: #### U CLINT, CMP, LIPID, DBIL, PHOS, MG #### [facility] [address] [address] [address] Brea Causey Testosterone [Mass/Vol] 494 ng/dL Normal 264-916 [facility] Comment on above: Result Comment: Adul t male reference interval is based on a population of healthy nonobese males (BMI <30) between 19 and 39 years old. daniel Harris.al. JCEM 2017,102;3588-2340. PMID: [id number]. Performed at: CB Performed By: #### U CLINT, CMP, LIPID, DBIL, PHOS, MG #### [facility] [address] [place] [address] Dr. Brea Causey FK506 (TACROLIMUS) WHOLE BLO ODon 05-02-2022 Tacrolimus (FK506), Blood 4.3 ng/mL Normal 2.0-20.0 [facility] Comment on above: Result Comment: Trou gh (immediately following transplant) 15.0 . Trough (steady state, 2 weeks or more after transplant): 3.0 - 8.0 . Performed by LC-MS/MS technology. Performed By: #### C BC #### [facility] [address] [place] [address] Dr. Brea Causey BILIRUBIN CONJUGATED (DIRECT )on 04-30-2022 BILI, CONJUGATED 0.1 mg/dL Normal 0.0-0.2 [facility] Comment on above: Performed By: #### U CLINT, CMP, LIPID, DBIL, PHOS, MG #### [facility] [address] [address] [address] Brea Causey CBC AUTO DIFFon 04-30-2022 BASO # 0.0 103/ul Normal 0.0-0.1 [facility] Comment on above: Performed By: #### U CLINT, CMP, LIPID, DBIL, PHOS, MG #### [facility] [address] [place] [address] Dr. Brea Causey Basophils/100 WBC (Bld) 0.5 % Normal 0.2-2.0 [facility] Comment on above: Performed By: #### U CLINT, CMP, LIPID, DBIL, PHOS, MG #### [facility] [address] [place] [address] Dr. Brea Causey EO # 0.1 103/ul Normal 0.0-0.7 [facility] Comment on above: Performed By: #### U CLINT, CMP, LIPID, DBIL, PHOS, MG #### [facility] [address] [place] [address] Dr. Brea Causey Eosinophils/100 WBC (Bld) 2.1 % Normal 0.9-7.0 [facility] Comment on above: Performed By: #### U CLINT, CMP, LIPID, DBIL, PHOS, MG #### [facility] [address] [place] [address] Dr. Brea Causey Erythrocyte distribution width (RBC) [Ratio] 13.2 % Normal 11.0-15.0 [facility] Comment on above: Performed By: #### U CLINT, CMP, LIPID, DBIL, PHOS, MG #### [facility] [address] [place] [address] Dr. Brea Causey Hematocrit (Bld) [Volume fraction] 37.0 % Critically low 42.0-54.0 [facility] Comment on above: Performed By: #### U CLINT, CMP, LIPID, DBIL, PHOS, MG #### [facility] [address] [place] [address] Dr. Brea Causey Hemoglobin (Bld) [Mass/Vol] 12.4 g/dL Critically low 14.0-18.0 [facility] Comment on above: Performed By: #### U CLINT, CMP, LIPID, DBIL, PHOS, MG #### [facility] [address] [place] [address] Dr. Brea Causey IG # 0.05 10e3/ul Critically high 0.00-0.03 [facility] Comment on above: Performed By: #### U CLINT, CMP, LIPID, DBIL, PHOS, MG #### [facility] [address] [place] [address] Dr. Brea Causey IG % 0.9 % Critically high 0.0-0.5 [facility] Comment on above: Performed By: #### U CLINT, CMP, LIPID, DBIL, PHOS, MG #### [facility] [address] [place] [address] Dr. Brea Causey LYMPH # 1.0 103/ul Critically low 1.2-3.[address] [facility] Comment on above: Performed By: #### U CLINT, CMP, LIPID, DBIL, PHOS, MG #### [facility] [address] [place] [address] Dr. Brea Causey Lymphocytes/100 WBC (Bld) 16.4 % Critically low 20.5-60.0 [facility] Comment on above: Performed By: #### U CLINT, CMP, LIPID, DBIL, PHOS, MG #### [facility] [address] [place] [address] Dr. Brea Causey MANUAL DIFF REQ NO Normal [facility] Comment on above: Performed By: #### U CLINT, CMP, LIPID, DBIL, PHOS, MG #### [facility] [address] [place] [address] Dr. Brea Causey MCH (RBC) [Entitic mass] 29.0 pg Normal 25.9-34.0 [facility] Comment on above: Performed By: #### U CLINT, CMP, LIPID, DBIL, PHOS, MG #### [facility] [address] [place] [address] Dr. Brea Causey MCHC (RBC) [Mass/Vol] 33.5 g/dL Normal 29.9-35.2 [facility] Comment on above: Performed By: #### U CLINT, CMP, LIPID, DBIL, PHOS, MG #### [facility] [address] [place] [address] Dr. Brea Causey MCV (RBC) [Entitic vol] 86.7 fL Normal 80.0-94.0 [facility] Comment on above: Performed By: #### U CLINT, CMP, LIPID, DBIL, PHOS, MG #### [facility] [address] [address] [address] Brea Causey MONO # 0.7 103/ul Normal 0.3-0.8 [facility] Comment on above: Performed By: #### U CLINT, CMP, LIPID, DBIL, PHOS, MG #### [facility] [address] [place] [address] Dr. Brea Causey Monocytes/100 WBC (Bld) 11.6 % Normal 1.7-12.0 [facility] Comment on above: Performed By: #### U CLINT, CMP, LIPID, DBIL, PHOS, MG #### [facility] [address] [place] [address] Dr. Brea Causey NEUT # 4.0 103/ul Normal 1.4-6.5 [facility] Comment on above: Performed By: #### U CLINT, CMP, LIPID, DBIL, PHOS, MG #### [facility] [address] [place] [address] Dr. Brea Causey Neutrophils/100 WBC (Bld) 68.5 % Normal 43.0-75.0 [facility] Comment on above: Performed By: #### U CLINT, CMP, LIPID, DBIL, PHOS, MG #### [facility] [address] [place] [address] Dr. Brea Causey Platelet mean volume (Bld) [Entitic vol] 9.2 fL Critically low 9.5-13.5 [facility] Comment on above: Performed By: #### U CLINT, CMP, LIPID, DBIL, PHOS, MG #### [facility] [address] [place] [address] Dr. Brea Causey PLT 231 103/ul Normal 150-450 [facility] Comment on above: Performed By: #### U CLINT, CMP, LIPID, DBIL, PHOS, MG #### [facility] [address] [place] [address] Dr. Brea Causey RBC 4.27 106/ul Critically low 4.70-6.10 [facility] Comment on above: Performed By: #### U CLINT, CMP, LIPID, DBIL, PHOS, MG #### [facility] [address] [address] [address] Brea Causey WBC 5.9 103/ul Normal 4.0-11.0 [facility] Comment on above: Performed By: #### U CLINT, CMP, LIPID, DBIL, PHOS, MG #### [facility] [address] [address] [address] Brea Causey LIPID PROFILEon 04-30-2022 CHOL-HDL RATIO NORM SEE BELOW Normal [facility] Comment on above: Result Comment: 3.3 - 4.4 LOW RISK 4.4 - 7.1 AVERAGE RISK 7.1 - 11.0 MODERATE RISK >11.0 HIGH RISK Performed By: #### U CLINT, CMP, LIPID, DBIL, PHOS, MG #### [facility] [address] [address] [address] Brea Causey Cholesterol [Mass/Vol] 78 mg/dL Normal <=200 [facility] Comment on above: Performed By: #### U CLINT, CMP, LIPID, DBIL, PHOS, MG #### [facility] [address] [address] [address] Brea Causey Cholesterol in HDL [Mass/Vol] 41 mg/dL Normal 40-60 [facility] Comment on above: Performed By: #### U CLINT, CMP, LIPID, DBIL, PHOS, MG #### [facility] [address] [address] [address] Brea Causey Cholesterol in LDL [Mass/Vol] 17.8 mg/dL Normal [facility] Comment on above: Performed By: #### U CLINT, CMP, LIPID, DBIL, PHOS, MG #### [facility] [address] [address] [address] Brea Causey Cholesterol.total/Cho lesterol in HDL [Mass ratio] 1.9 {ratio} Normal [facility] Comment on above: Performed By: #### U CLINT, CMP, LIPID, DBIL, PHOS, MG #### [facility] [address] [address] [address] Brea Causey HDL NORMAL > or = 60 mg/dl - LO W CARDIOVASCULAR RISK <40 mg/dl - HIGH CARDIOVASCULAR RISK Normal [facility] Comment on above: Performed By: #### U CLINT, CMP, LIPID, DBIL, PHOS, MG #### [facility] [address] [address] [address] Brea Causey LDL CALC NORMAL SEE BELOW Normal [facility] Comment on above: Result Comment: <100 mg/dl OPTIMAL 100 - 129 mg/dl NEAR OR ABOVE OPTIMAL 130 - 159 mg/dl BORDERLINE HIGH 160 - 189 mg/dl HIGH >190 mg/dl VERY HIGH Performed By: #### U CLINT, CMP, LIPID, DBIL, PHOS, MG #### [facility] [address] [address] [address] Brea Causey Triglyceride [Mass/Vol] 96 mg/dL Normal <=150 [facility] Comment on above: Performed By: #### U CLINT, CMP, LIPID, DBIL, PHOS, MG #### [facility] [address] [place] [address] Dr. Brea Causey VLDL CALC 19.2 mg/dL Normal [facility] Comment on above: Performed By: #### U CLINT, CMP, LIPID, DBIL, PHOS, MG #### [facility] [address] [place] [address] Dr. Brea Causey MAGNESIUMon 04-30-2022 Magnesium [Mass/Vol] 1.7 mg/dL Critically low 1.8-2.4 [facility] Comment on above: Performed By: #### U CLINT, CMP, LIPID, DBIL, PHOS, MG #### [facility] [address] [place] [address] Dr. Brea Causey PHOSPHORUSon 04-30-2022 Phosphate [Mass/Vol] 3.6 mg/dL Normal 2.6-4.7 [facility] Comment on above: Performed By: #### U CLINT, CMP, LIPID, DBIL, PHOS, MG #### [facility] [address] [place] [address] Dr. Brea Causey PROF 14(COMP METB)on 022 Albumin [Mass/Vol] 4.0 g/dL Normal 3.4-5.0 [facility] Comment on above: Performed By: #### U CLINT, CMP, LIPID, DBIL, PHOS, MG #### [facility] [address] [place] [address] Dr. Brea Causey Albumin/Globulin [Mass ratio] 1.3 {ratio} Normal [facility] Comment on above: Performed By: #### U CLINT, CMP, LIPID, DBIL, PHOS, MG #### [facility] [address] [address] [address] Brea Causey ALP [Catalytic activity/Vol] 196 U/L Critically high 46-116 [facility] Comment on above: Performed By: #### U CLINT, CMP, LIPID, DBIL, PHOS, MG #### [facility] [address] [place] [address] Dr. Brea Causey ALT [Catalytic activity/Vol] 21 U/L Normal 16-63 [facility] Comment on above: Performed By: #### U CLINT, CMP, LIPID, DBIL, PHOS, MG #### [facility] [address] [place] [address] Dr. Brea Causey Anion gap [Moles/Vol] 10.5 mmol/L Normal [facility] Comment on above: Performed By: #### U CLINT, CMP, LIPID, DBIL, PHOS, MG #### [facility] [address] [place] [address] Dr. Brea Causey AST [Catalytic activity/Vol] 16 U/L Normal 15-37 [facility] Comment on above: Performed By: #### U CLINT, CMP, LIPID, DBIL, PHOS, MG #### [facility] [address] [place] [address] Dr. Brea Causey Bilirubin [Mass/Vol] 0.3 mg/dL Normal 0.2-1.0 [facility] Comment on above: Performed By: #### U CLINT, CMP, LIPID, DBIL, PHOS, MG #### [facility] [address] [address] [address] Brea Causey Calcium [Mass/Vol] 8.6 mg/dL Normal 8.5-10.1 [facility] Comment on above: Performed By: #### U CLINT, CMP, LIPID, DBIL, PHOS, MG #### [facility] [address] [address] [address] Brea Causey Chloride [Moles/Vol] 95 mmol/L Critically low 98-107 [facility] Comment on above: Performed By: #### U CLINT, CMP, LIPID, DBIL, PHOS, MG #### [facility] [address] [address] [address] Brea Causey CO2 [Moles/Vol] 30.9 mmol/L Normal 21.0-32.0 [facility] Comment on above: Performed By: #### U CLINT, CMP, LIPID, DBIL, PHOS, MG #### [facility] [address] [address] [address] Brea Causey Creatinine [Mass/Vol] 1.00 mg/dL Normal 0.70-1.30 [facility] Comment on above: Performed By: #### U CLINT, CMP, LIPID, DBIL, PHOS, MG #### [facility] [address] [address] [address] Brea Causey EGFR-AF TUNISIAN >60 Normal >=60 [facility] Comment on above: Performed By: #### U CLINT, CMP, LIPID, DBIL, PHOS, MG #### [facility] [address] [address] [address] Brea Causey EGFR-NON AF TUNISIAN >60 Normal >=60 [facility] Comment on above: Performed By: #### U CLINT, CMP, LIPID, DBIL, PHOS, MG #### [facility] [address] [address] [address] Brea Causey Globulin (S) [Mass/Vol] 3.2 g/dL Normal [facility] Comment on above: Performed By: #### U CLINT, CMP, LIPID, DBIL, PHOS, MG #### [facility] [address] [address] [address] Brea Causey Glucose [Mass/Vol] 160 mg/dL Critically high 74-106 [facility] Comment on above: Performed By: #### U CLINT, CMP, LIPID, DBIL, PHOS, MG #### [facility] [address] [place] [address] Dr. Brea Causey Potassium [Moles/Vol] 5.4 mmol/L Critically high 3.5-5.1 [facility] Comment on above: Performed By: #### U CLINT, CMP, LIPID, DBIL, PHOS, MG #### [facility] [address] [place] [address] Dr. Brea Causey Protein [Mass/Vol] 7.2 g/dL Normal 6.4-8.2 [facility] Comment on above: Performed By: #### U CLINT, CMP, LIPID, DBIL, PHOS, MG #### [facility] [address] [place] [address] Dr. Brea Causey Sodium [Moles/Vol] 131 mmol/L Critically low 136-145 Th [facility] Comment on above: Performed By: #### U CLINT, CMP, LIPID, DBIL, PHOS, MG #### [facility] [address] [place] [address] Dr. Brea Causey Urea nitrogen [Mass/Vol] 11.0 mg/dL Normal 7.0-18.0 [facility] Comment on above: Performed By: #### U CLINT, CMP, LIPID, DBIL, PHOS, MG #### [facility] [address] [place] [address] Dr. Brea Causey Urea nitrogen/Creatinine [Mass ratio] 11.0 mg/mg Normal [facility] Comment on above: Performed By: #### U CLINT, CMP, LIPID, DBIL, PHOS, MG #### [facility] [address] [place] [address] Dr. Brea Causey URIC ACID SERUMon 04-30-2022 Urate [Mass/Vol] 5.9 mg/dL Normal 3.5-7.2 [facility] Comment on above: Performed By: #### U CLINT, CMP, LIPID, DBIL, PHOS, MG #### [facility] [address] [place] [address] Dr. Brea Causey FK506 (TACROLIMUS) WHOLE BLO ODon 04-06-2022 Tacrolimus (FK506), Blood 3.0 ng/mL Normal 2.0-20.0 [facility] Comment on above: Result Comment: Trou gh (immediately following transplant) 15.0 . Trough (steady state, 2 weeks or more after transplant): 3.0 - 8.0 . Performed by LC-MS/MS technology. Performed By: #### U CLINT, CMP, LIPID, DBIL, PHOS, MG #### [facility] [address] [place] [address] Dr. Brea Causey BILIRUBIN CONJUGATED (DIRECT )on 04-03-2022 BILI, CONJUGATED 0.1 mg/dL Normal 0.0-0.2 [facility] Comment on above: Performed By: #### U CLINT, CMP, LIPID, DBIL, PHOS, MG #### [facility] [address] [place] [address] Dr. Brea Causey CBC AUTO DIFFon 04-03-2022 BASO # 0.0 103/ul Normal 0.0-0.1 [facility] Comment on above: Performed By: #### U CLINT, CMP, LIPID, DBIL, PHOS, MG #### [facility] [address] [place] [address] Dr. Brea Causey Basophils/100 WBC (Bld) 0.5 % Normal 0.2-2.0 [facility] Comment on above: Performed By: #### U CLINT, CMP, LIPID, DBIL, PHOS, MG #### [facility] [address] [place] [address] Dr. Brea Causey EO # 0.1 103/ul Normal 0.0-0.7 [facility] Comment on above: Performed By: #### U CLINT, CMP, LIPID, DBIL, PHOS, MG #### [facility] [address] [place] [address] Dr. Brea Causey Eosinophils/100 WBC (Bld) 2.5 % Normal 0.9-7.0 [facility] Comment on above: Performed By: #### U CLNIT, CMP, LIPID, DBIL, PHOS, MG #### [facility] [address] [place] [address] Dr. Brea Causey Erythrocyte distribution width (RBC) [Ratio] 13.3 % Normal 11.0-15.0 [facility] Comment on above: Performed By: #### U CLINT, CMP, LIPID, DBIL, PHOS, MG #### [facility] [address] [place] [address] Dr. Brea Causey Hematocrit (Bld) [Volume fraction] 36.4 % Critically low 42.0-54.0 [facility] Comment on above: Performed By: #### U CLINT, CMP, LIPID, DBIL, PHOS, MG #### [facility] [address] [place] [address] Dr. Brea Causey Hemoglobin (Bld) [Mass/Vol] 12.3 g/dL Critically low 14.0-18.0 [facility] Comment on above: Performed By: #### U CLINT, CMP, LIPID, DBIL, PHOS, MG #### [facility] [address] [place] [address] Dr. Brea Causey IG # 0.03 10e3/ul Normal 0.00-0.03 [facility] Comment on above: Performed By: #### U CLINT, CMP, LIPID, DBIL, PHOS, MG #### [facility] [address] [place] [address] Dr. Brea Causey IG % 0.5 % Normal 0.0-0.5 [facility] Comment on above: Performed By: #### U CLINT, CMP, LIPID, DBIL, PHOS, MG #### [facility] [address] [place] [address] Dr. Brea Causey LYMPH # 0.9 103/ul Critically low 1.2-3.[address] [facility] Comment on above: Performed By: #### U CLINT, CMP, LIPID, DBIL, PHOS, MG #### [facility] [address] [place] [address] Dr. Brea Causey Lymphocytes/100 WBC (Bld) 16.9 % Critically low 20.5-60.0 [facility] Comment on above: Performed By: #### U CLINT, CMP, LIPID, DBIL, PHOS, MG #### [facility] [address] [place] [address] Dr. Brea Causey MANUAL DIFF REQ NO Normal [facility] Comment on above: Performed By: #### U CLINT, CMP, LIPID, DBIL, PHOS, MG #### [facility] [address] [place] [address] Dr. Brea Causey MCH (RBC) [Entitic mass] 29.3 pg Normal 25.9-34.0 [facility] Comment on above: Performed By: #### U CLINT, CMP, LIPID, DBIL, PHOS, MG #### [facility] [address] [place] [address] Dr. Brea Causey MCHC (RBC) [Mass/Vol] 33.8 g/dL Normal 29.9-35.2 [facility] Comment on above: Performed By: #### U CLINT, CMP, LIPID, DBIL, PHOS, MG #### [facility] [address] [place] [address] Dr. Brea Causey MCV (RBC) [Entitic vol] 86.7 fL Normal 80.0-94.0 [facility] Comment on above: Performed By: #### U CLINT, CMP, LIPID, DBIL, PHOS, MG #### [facility] [address] [place] [address] Dr. Brea Causey MONO # 0.6 103/ul Normal 0.3-0.8 [facility] Comment on above: Performed By: #### U CLINT, CMP, LIPID, DBIL, PHOS, MG #### [facility] [address] [place] [address] Dr. Brea Causey Monocytes/100 WBC (Bld) 10.1 % Normal 1.7-12.0 [facility] Comment on above: Performed By: #### U CLINT, CMP, LIPID, DBIL, PHOS, MG #### [facility] [address] [place] [address] Dr. Brea Causey NEUT # 3.9 103/ul Normal 1.4-6.5 [facility] Comment on above: Performed By: #### U CLINT, CMP, LIPID, DBIL, PHOS, MG #### [facility] [address] [address] [address] Brea Causey Neutrophils/100 WBC (Bld) 69.5 % Normal 43.0-75.0 [facility] Comment on above: Performed By: #### U CLINT, CMP, LIPID, DBIL, PHOS, MG #### [facility] [address] [address] [address] Brea Causey Platelet mean volume (Bld) [Entitic vol] 9.2 fL Critically low 9.5-13.5 [facility] Comment on above: Performed By: #### U CLINT, CMP, LIPID, DBIL, PHOS, MG #### [facility] [address] [address] [address] Brea Causey PLT 228 103/ul Normal 150-450 [facility] Comment on above: Performed By: #### U CLINT, CMP, LIPID, DBIL, PHOS, MG #### [facility] [address] [address] [address] Brea Causey RBC 4.20 106/ul Critically low 4.70-6.10 [facility] Comment on above: Performed By: #### U CLINT, CMP, LIPID, DBIL, PHOS, MG #### [facility] [address] [address] [address] Brea Causey WBC 5.6 103/ul Normal 4.0-11.0 [facility] Comment on above: Performed By: #### U CLINT, CMP, LIPID, DBIL, PHOS, MG #### [facility] [address] [address] [address] Brea Causey LIPID PROFILEon 04-03-2022 CHOL-HDL RATIO NORM SEE BELOW Normal [facility] Comment on above: Result Comment: 3.3 - 4.4 LOW RISK 4.4 - 7.1 AVERAGE RISK 7.1 - 11.0 MODERATE RISK >11.0 HIGH RISK Performed By: #### U CLINT, CMP, LIPID, DBIL, PHOS, MG #### [facility] [address] [address] [address] Brea Causey Cholesterol [Mass/Vol] 84 mg/dL Normal <=200 [facility] Comment on above: Performed By: #### U CLINT, CMP, LIPID, DBIL, PHOS, MG #### [facility] [address] [address] [address] Brea Causey Cholesterol in HDL [Mass/Vol] 45 mg/dL Normal 40-60 [facility] Comment on above: Performed By: #### U CLINT, CMP, LIPID, DBIL, PHOS, MG #### [facility] [address] [address] [address] Brea Causey Cholesterol in LDL [Mass/Vol] 22.8 mg/dL Normal [facility] Comment on above: Performed By: #### U CLINT, CMP, LIPID, DBIL, PHOS, MG #### [facility] [address] [address] [address] Brea Causey Cholesterol.total/Cho lesterol in HDL [Mass ratio] 1.9 {ratio} Normal [facility] Comment on above: Performed By: #### U CLINT, CMP, LIPID, DBIL, PHOS, MG #### [facility] [address] [address] [address] Brea Causey HDL NORMAL > or = 60 mg/dl - LO W CARDIOVASCULAR RISK <40 mg/dl - HIGH CARDIOVASCULAR RISK Normal [facility] Comment on above: Performed By: #### U CLINT, CMP, LIPID, DBIL, PHOS, MG #### [facility] [address] [address] [address] Brea Causey LDL CALC NORMAL SEE BELOW Normal [facility] Comment on above: Result Comment: <100 mg/dl OPTIMAL 100 - 129 mg/dl NEAR OR ABOVE OPTIMAL 130 - 159 mg/dl BORDERLINE HIGH 160 - 189 mg/dl HIGH >190 mg/dl VERY HIGH Performed By: #### U CLINT, CMP, LIPID, DBIL, PHOS, MG #### [facility] [address] [address] [address] Brea Causey Triglyceride [Mass/Vol] 81 mg/dL Normal <=150 [facility] Comment on above: Performed By: #### U CLINT, CMP, LIPID, DBIL, PHOS, MG #### [facility] [address] [place] [address] Dr. Brea Causey VLDL CALC 16.2 mg/dL Normal [facility] Comment on above: Performed By: #### U CLINT, CMP, LIPID, DBIL, PHOS, MG #### [facility] [address] [place] [address] Dr. Brea Causey MAGNESIUMon 04-03-2022 Magnesium [Mass/Vol] 1.6 mg/dL Critically low 1.8-2.4 [facility] Comment on above: Performed By: #### U CLINT, CMP, LIPID, DBIL, PHOS, MG #### [facility] [address] [place] [address] Dr. Brea Causey PHOSPHORUSon 04-03-2022 Phosphate [Mass/Vol] 3.9 mg/dL Normal 2.6-4.7 [facility] Comment on above: Performed By: #### U CLINT, CMP, LIPID, DBIL, PHOS, MG #### [facility] [address] [place] [address] Dr. Brea Causey PROF 14(COMP METB)on 022 Albumin [Mass/Vol] 4.0 g/dL Normal 3.4-5.0 [facility] Comment on above: Performed By: #### U CLINT, CMP, LIPID, DBIL, PHOS, MG #### [facility] [address] [place] [address] Dr. Brea Causey Albumin/Globulin [Mass ratio] 1.2 {ratio} Normal [facility] Comment on above: Performed By: #### U CLINT, CMP, LIPID, DBIL, PHOS, MG #### [facility] [address] [place] [address] Dr. Brea Causey ALP [Catalytic activity/Vol] 196 U/L Critically high 46-116 [facility] Comment on above: Performed By: #### U CLINT, CMP, LIPID, DBIL, PHOS, MG #### [facility] [address] [place] [address] Dr. Brea Causey ALT [Catalytic activity/Vol] 19 U/L Normal 16-63 [facility] Comment on above: Performed By: #### U CLINT, CMP, LIPID, DBIL, PHOS, MG #### [facility] [address] [place] [address] Dr. Brea Causey Anion gap [Moles/Vol] 10.2 mmol/L Normal [facility] Comment on above: Performed By: #### U CLINT, CMP, LIPID, DBIL, PHOS, MG #### [facility] [address] [place] [address] Dr. Brea Causey AST [Catalytic activity/Vol] 15 U/L Normal 15-37 [facility] Comment on above: Performed By: #### U CLINT, CMP, LIPID, DBIL, PHOS, MG #### [facility] [address] [place] [address] Dr. Brea Causey Bilirubin [Mass/Vol] 0.3 mg/dL Normal 0.2-1.0 [facility] Comment on above: Performed By: #### U CLINT, CMP, LIPID, DBIL, PHOS, MG #### [facility] [address] [place] [address] Dr. Brea Causey Calcium [Mass/Vol] 8.2 mg/dL Critically low 8.5-10.1 [facility] Comment on above: Performed By: #### U CLINT, CMP, LIPID, DBIL, PHOS, MG #### [facility] [address] [place] [address] Dr. Brea Causey Chloride [Moles/Vol] 97 mmol/L Critically low 98-107 [facility] Comment on above: Performed By: #### U CLINT, CMP, LIPID, DBIL, PHOS, MG #### [facility] [address] [place] [address] Dr. Brea Causey CO2 [Moles/Vol] 28.2 mmol/L Normal 21.0-32.0 [facility] Comment on above: Performed By: #### U CLINT, CMP, LIPID, DBIL, PHOS, MG #### [facility] [address] [address] [address] Brea Causey Creatinine [Mass/Vol] 1.00 mg/dL Normal 0.70-1.30 [facility] Comment on above: Performed By: #### U CLINT, CMP, LIPID, DBIL, PHOS, MG #### [facility] [address] [address] [address] Brea Causey EGFR-AF TUNISIAN >60 Normal >=60 [facility] Comment on above: Performed By: #### U CLINT, CMP, LIPID, DBIL, PHOS, MG #### [facility] [address] [place] [address] Dr. Brea Causey EGFR-NON AF TUNISIAN >60 Normal >=60 [facility] Comment on above: Performed By: #### U CLINT, CMP, LIPID, DBIL, PHOS, MG #### [facility] [address] [address] [address] Brea Causey Globulin (S) [Mass/Vol] 3.3 g/dL Normal [facility] Comment on above: Performed By: #### U CLINT, CMP, LIPID, DBIL, PHOS, MG #### [facility] [address] [place] [address] Dr. Brea Causey Glucose [Mass/Vol] 164 mg/dL Critically high 74-106 [facility] Comment on above: Performed By: #### U CLINT, CMP, LIPID, DBIL, PHOS, MG #### [facility] [address] [place] [address] Dr. Brea Causey Potassium [Moles/Vol] 4.4 mmol/L Normal 3.5-5.1 [facility] Comment on above: Performed By: #### U CLINT, CMP, LIPID, DBIL, PHOS, MG #### [facility] [address] [address] [address] Brea Causey Protein [Mass/Vol] 7.3 g/dL Normal 6.4-8.2 [facility] Comment on above: Performed By: #### U CLINT, CMP, LIPID, DBIL, PHOS, MG #### [facility] [address] [address] [address] Brea Causey Sodium [Moles/Vol] 131 mmol/L Critically low 136-145 Th [facility] Comment on above: Performed By: #### U CLINT, CMP, LIPID, DBIL, PHOS, MG #### [facility] [address] [address] [address] Brea Causey Urea nitrogen [Mass/Vol] 13.0 mg/dL Normal 7.0-18.0 [facility] Comment on above: Performed By: #### U CLINT, CMP, LIPID, DBIL, PHOS, MG #### [facility] [address] [address] [address] Brea Causey Urea nitrogen/Creatinine [Mass ratio] 13.0 mg/mg Normal [facility] Comment on above: Performed By: #### U CLINT, CMP, LIPID, DBIL, PHOS, MG #### [facility] [address] [place] [address] Dr. Brea Causey URIC ACID SERUMon 04-03-2022 Urate [Mass/Vol] 6.1 mg/dL Normal 3.5-7.2 [facility] Comment on above: Performed By: #### U CLINT, CMP, LIPID, DBIL, PHOS, MG #### [facility] [address] [address] [address] Brea Causey TESTOSTERONE, FREE,DIRECT, T OTALon 03-13-2022 Free Testosterone(Direct) 6.9 pg/mL Normal 6.6-18.1 [facility] Comment on above: Result Comment: Perf ormed at: BN Performed By: #### T ESTFRD #### [facility] [address] [place] [address] Dr. Brea Causey Testosterone [Mass/Vol] 428 ng/dL Normal 264-916 [facility] Comment on above: Result Comment: Adul t male reference interval is based on a population of healthy nonobese males (BMI <30) between 19 and 39 years old. daniel Harris.al. JCEM 2017,102;3551-9144. PMID: [id number]. Performed at: CB Performed By: #### T ESTFRD #### [facility] [address] [place] [address] Dr. Brea Causey BK VIRUS PCR QUANTon 022 BKV DNA QUANT PCR PLASMA Negative Normal Negative [facility] Comment on above: Result Comment: No B K DNA detected. . The linear range of the assay is 22 - 100,000,000 IU/mL. Performed By: #### B KVIRUS #### [facility] [address] [place] [address] Dr. Brea Causey Log10 BKV DNA Plasma Normal [facility] Comment on above: Performed By: #### B KVIRUS #### [facility] [address] [place] [address] Dr. Brea Causey FK506 (TACROLIMUS) WHOLE BLO ODon 03-11-2022 Tacrolimus (FK506), Blood 4.7 ng/mL Normal 2.0-20.0 [facility] Comment on above: Result Comment: Trou gh (immediately following transplant) 15.0 . Trough (steady state, 2 weeks or more after transplant): 3.0 - 8.0 . Performed by LC-MS/MS technology. Performed By: #### C BC #### [facility] [address] [place] [address] Dr. Brea Causey BILIRUBIN CONJUGATED (DIRECT )on 03-08-2022 BILI, CONJUGATED 0.1 mg/dL Normal 0.0-0.2 [facility] Comment on above: Performed By: #### U CLINT, CMP, LIPID, DBIL, PHOS, MG #### [facility] [address] [place] [address] Dr. Brea Causey CBC AUTO DIFFon 03-08-2022 BASO # 0.0 103/ul Normal 0.0-0.1 [facility] Comment on above: Performed By: #### U CLINT, CMP, LIPID, DBIL, PHOS, MG #### [facility] [address] [place] [address] Dr. Brea Causey Basophils/100 WBC (Bld) 0.7 % Normal 0.2-2.0 [facility] Comment on above: Performed By: #### U CLINT, CMP, LIPID, DBIL, PHOS, MG #### [facility] [address] [place] [address] Dr. Brea Causey EO # 0.2 103/ul Normal 0.0-0.7 [facility] Comment on above: Performed By: #### U CLINT, CMP, LIPID, DBIL, PHOS, MG #### [facility] [address] [place] [address] Dr. Brea Causey Eosinophils/100 WBC (Bld) 3.1 % Normal 0.9-7.0 [facility] Comment on above: Performed By: #### U CLINT, CMP, LIPID, DBIL, PHOS, MG #### [facility] [address] [place] [address] Dr. Brea Causey Erythrocyte distribution width (RBC) [Ratio] 13.3 % Normal 11.0-15.0 [facility] Comment on above: Performed By: #### U CLINT, CMP, LIPID, DBIL, PHOS, MG #### [facility] [address] [place] [address] Dr. Brea Causey Hematocrit (Bld) [Volume fraction] 35.7 % Critically low 42.0-54.0 [facility] Comment on above: Performed By: #### U CLINT, CMP, LIPID, DBIL, PHOS, MG #### [facility] [address] [place] [address] Dr. Brea Causey Hemoglobin (Bld) [Mass/Vol] 12.0 g/dL Critically low 14.0-18.0 [facility] Comment on above: Performed By: #### U CLINT, CMP, LIPID, DBIL, PHOS, MG #### [facility] [address] [place] [address] Dr. Brea Causey IG # 0.06 10e3/ul Critically high 0.00-0.03 [facility] Comment on above: Performed By: #### U CLINT, CMP, LIPID, DBIL, PHOS, MG #### [facility] [address] [place] [address] Dr. Brea Causey IG % 1.0 % Critically high 0.0-0.5 [facility] Comment on above: Performed By: #### U CLINT, CMP, LIPID, DBIL, PHOS, MG #### [facility] [address] [place] [address] Dr. Brea Causey LYMPH # 0.8 103/ul Critically low 1.2-3.[address] [facility] Comment on above: Performed By: #### U CLINT, CMP, LIPID, DBIL, PHOS, MG #### [facility] [address] [place] [address] Dr. Brea Causey Lymphocytes/100 WBC (Bld) 12.9 % Critically low 20.5-60.0 [facility] Comment on above: Performed By: #### U CLINT, CMP, LIPID, DBIL, PHOS, MG #### [facility] [address] [place] [address] Dr. Brea Causey MANUAL DIFF REQ NO Normal [facility] Comment on above: Performed By: #### U CLINT, CMP, LIPID, DBIL, PHOS, MG #### [facility] [address] [place] [address] Dr. Brea Causey MCH (RBC) [Entitic mass] 29.5 pg Normal 25.9-34.0 [facility] Comment on above: Performed By: #### U CLINT, CMP, LIPID, DBIL, PHOS, MG #### [facility] [address] [place] [address] Dr. Brea Causey MCHC (RBC) [Mass/Vol] 33.6 g/dL Normal 29.9-35.2 [facility] Comment on above: Performed By: #### U CLINT, CMP, LIPID, DBIL, PHOS, MG #### [facility] [address] [place] [address] Dr. Brea Causey MCV (RBC) [Entitic vol] 87.7 fL Normal 80.0-94.0 [facility] Comment on above: Performed By: #### U CLINT, CMP, LIPID, DBIL, PHOS, MG #### [facility] [address] [address] [address] Brea Causey MONO # 0.6 103/ul Normal 0.3-0.8 [facility] Comment on above: Performed By: #### U CLINT, CMP, LIPID, DBIL, PHOS, MG #### [facility] [address] [place] [address] Dr. Brea Causey Monocytes/100 WBC (Bld) 9.8 % Normal 1.7-12.0 [facility] Comment on above: Performed By: #### U CLINT, CMP, LIPID, DBIL, PHOS, MG #### [facility] [address] [place] [address] Dr. Brea Causey NEUT # 4.4 103/ul Normal 1.4-6.5 [facility] Comment on above: Performed By: #### U CLINT, CMP, LIPID, DBIL, PHOS, MG #### [facility] [address] [place] [address] Dr. Brea Causey Neutrophils/100 WBC (Bld) 72.5 % Normal 43.0-75.0 [facility] Comment on above: Performed By: #### U CLINT, CMP, LIPID, DBIL, PHOS, MG #### [facility] [address] [place] [address] Dr. Brea Causey Platelet mean volume (Bld) [Entitic vol] 9.6 fL Normal 9.5-13.5 [facility] Comment on above: Performed By: #### U CLINT, CMP, LIPID, DBIL, PHOS, MG #### [facility] [address] [place] [address] Dr. Brea Causey PLT 265 103/ul Normal 150-450 [facility] Comment on above: Performed By: #### U CLINT, CMP, LIPID, DBIL, PHOS, MG #### [facility] [address] [place] [address] Dr. Brea Causey RBC 4.07 106/ul Critically low 4.70-6.10 [facility] Comment on above: Performed By: #### U CLINT, CMP, LIPID, DBIL, PHOS, MG #### [facility] [address] [address] [address] Brea Causey WBC 6.0 103/ul Normal 4.0-11.0 [facility] Comment on above: Performed By: #### U CLINT, CMP, LIPID, DBIL, PHOS, MG #### [facility] [address] [address] [address] Brea Causey GLYCOHEMOGLOBIN A1Con 2021 ADA RECOMMENDATION SEE BELOW Normal [facility] Comment on above: Result Comment: ADA RECOMMENDED LIMIT 4.0 - 6.0 ADA THERAPEUTIC TARGET < 7.0 ACTION SUGGESTED > 7.0 Performed By: #### U CLINT, CMP, LIPID, DBIL, PHOS, MG #### [facility] [address] [address] [address] Brea Causey Glucose [Mass/Vol] 169 mg/dL Normal [facility] Comment on above: Performed By: #### U CLINT, CMP, LIPID, DBIL, PHOS, MG #### [facility] [address] [address] [address] Brea Causey HbA1c (Bld) [Mass fraction] 7.5 % Critically high 4.5-6.2 [facility] Comment on above: Performed By: #### U CLINT, CMP, LIPID, DBIL, PHOS, MG #### [facility] [address] [address] [address] Brea Causey LIPID PROFILEon 03-08-2022 CHOL-HDL RATIO NORM SEE BELOW Normal [facility] Comment on above: Result Comment: 3.3 - 4.4 LOW RISK 4.4 - 7.1 AVERAGE RISK 7.1 - 11.0 MODERATE RISK >11.0 HIGH RISK Performed By: #### U CLINT, CMP, LIPID, DBIL, PHOS, MG #### [facility] [address] [address] [address] Brea Causey Cholesterol [Mass/Vol] 77 mg/dL Normal <=200 [facility] Comment on above: Performed By: #### U CLINT, CMP, LIPID, DBIL, PHOS, MG #### [facility] [address] [address] [address] Brea Causey Cholesterol in HDL [Mass/Vol] 49 mg/dL Normal 40-60 [facility] Comment on above: Performed By: #### U CLINT, CMP, LIPID, DBIL, PHOS, MG #### [facility] [address] [address] [address] Brea Causey Cholesterol in LDL [Mass/Vol] 20.4 mg/dL Normal [facility] Comment on above: Performed By: #### U CLINT, CMP, LIPID, DBIL, PHOS, MG #### [facility] [address] [address] [address] Brea Causey Cholesterol.total/Cho lesterol in HDL [Mass ratio] 1.6 {ratio} Normal [facility] Comment on above: Performed By: #### U CLINT, CMP, LIPID, DBIL, PHOS, MG #### [facility] [address] [address] [address] Brea Causey HDL NORMAL > or = 60 mg/dl - LO W CARDIOVASCULAR RISK <40 mg/dl - HIGH CARDIOVASCULAR RISK Normal [facility] Comment on above: Performed By: #### U CLINT, CMP, LIPID, DBIL, PHOS, MG #### [facility] [address] [address] [address] Brea Causey LDL CALC NORMAL SEE BELOW Normal [facility] Comment on above: Result Comment: <100 mg/dl OPTIMAL 100 - 129 mg/dl NEAR OR ABOVE OPTIMAL 130 - 159 mg/dl BORDERLINE HIGH 160 - 189 mg/dl HIGH >190 mg/dl VERY HIGH Performed By: #### U CLINT, CMP, LIPID, DBIL, PHOS, MG #### [facility] [address] [address] [address] Brea Causey Triglyceride [Mass/Vol] 38 mg/dL Normal <=150 [facility] Comment on above: Performed By: #### U CLINT, CMP, LIPID, DBIL, PHOS, MG #### [facility] [address] [address] [address] Brea Causey VLDL CALC 7.6 mg/dL Normal [facility] Comment on above: Performed By: #### U CLINT, CMP, LIPID, DBIL, PHOS, MG #### [facility] [address] [place] [address] Dr. Brea Causey MAGNESIUMon 03-08-2022 Magnesium [Mass/Vol] 1.5 mg/dL Critically low 1.8-2.4 [facility] Comment on above: Performed By: #### U CLINT, CMP, LIPID, DBIL, PHOS, MG #### [facility] [address] [place] [address] Dr. Brea Causey PHOSPHORUSon 03-08-2022 Phosphate [Mass/Vol] 3.6 mg/dL Normal 2.6-4.7 [facility] Comment on above: Performed By: #### U CLINT, CMP, LIPID, DBIL, PHOS, MG #### [facility] [address] [place] [address] Dr. Brea Causey PROF 14(COMP METB)on 022 Albumin [Mass/Vol] 4.0 g/dL Normal 3.4-5.0 [facility] Comment on above: Performed By: #### U CLINT, CMP, LIPID, DBIL, PHOS, MG #### [facility] [address] [place] [address] Dr. Brea Causey Albumin/Globulin [Mass ratio] 1.2 {ratio} Normal [facility] Comment on above: Performed By: #### U CLINT, CMP, LIPID, DBIL, PHOS, MG #### [facility] [address] [place] [address] Dr. Brea Causey ALP [Catalytic activity/Vol] 176 U/L Critically high 46-116 [facility] Comment on above: Performed By: #### U CLINT, CMP, LIPID, DBIL, PHOS, MG #### [facility] [address] [place] [address] Dr. Brea Causey ALT [Catalytic activity/Vol] 21 U/L Normal 16-63 [facility] Comment on above: Performed By: #### U CLINT, CMP, LIPID, DBIL, PHOS, MG #### [facility] [address] [place] [address] Dr. Brea Causey Anion gap [Moles/Vol] 12.0 mmol/L Normal [facility] Comment on above: Performed By: #### U CLINT, CMP, LIPID, DBIL, PHOS, MG #### [facility] [address] [place] [address] Dr. Brea Causey AST [Catalytic activity/Vol] 13 U/L Critically low 15-37 [facility] Comment on above: Performed By: #### U CLINT, CMP, LIPID, DBIL, PHOS, MG #### [facility] [address] [place] [address] Dr. Brea Causey Bilirubin [Mass/Vol] 0.3 mg/dL Normal 0.2-1.0 [facility] Comment on above: Performed By: #### U CLINT, CMP, LIPID, DBIL, PHOS, MG #### [facility] [address] [place] [address] Dr. Brea Causey Calcium [Mass/Vol] 7.9 mg/dL Critically low 8.5-10.1 [facility] Comment on above: Performed By: #### U CLINT, CMP, LIPID, DBIL, PHOS, MG #### [facility] [address] [place] [address] Dr. Brea Causey Chloride [Moles/Vol] 100 mmol/L Normal 98-107 [facility] Comment on above: Performed By: #### U CLINT, CMP, LIPID, DBIL, PHOS, MG #### [facility] [address] [place] [address] Dr. Brea Causey CO2 [Moles/Vol] 27.3 mmol/L Normal 21.0-32.0 [facility] Comment on above: Performed By: #### U CLINT, CMP, LIPID, DBIL, PHOS, MG #### [facility] [address] [place] [address] Dr. Brea Causey Creatinine [Mass/Vol] 1.00 mg/dL Normal 0.70-1.30 [facility] Comment on above: Performed By: #### U CLINT, CMP, LIPID, DBIL, PHOS, MG #### [facility] [address] [address] [address] Brea Causey EGFR-AF TUNISIAN >60 Normal >=60 [facility] Comment on above: Performed By: #### U CLINT, CMP, LIPID, DBIL, PHOS, MG #### [facility] [address] [address] [address] Brea Causey EGFR-NON AF TUNISIAN >60 Normal >=60 [facility] Comment on above: Performed By: #### U CLINT, CMP, LIPID, DBIL, PHOS, MG #### [facility] [address] [address] [address] Brea Causey Globulin (S) [Mass/Vol] 3.3 g/dL Normal [facility] Comment on above: Performed By: #### U CLINT, CMP, LIPID, DBIL, PHOS, MG #### [facility] [address] [address] [address] Brea Causey Glucose [Mass/Vol] 155 mg/dL Critically high 74-106 T [facility] Comment on above: Performed By: #### U CLINT, CMP, LIPID, DBIL, PHOS, MG #### [facility] [address] [address] [address] Brea Causey Potassium [Moles/Vol] 4.3 mmol/L Normal 3.5-5.1 [facility] Comment on above: Performed By: #### U CLINT, CMP, LIPID, DBIL, PHOS, MG #### [facility] [address] [address] [address] Brea Causey Protein [Mass/Vol] 7.3 g/dL Normal 6.4-8.2 [facility] Comment on above: Performed By: #### U CLINT, CMP, LIPID, DBIL, PHOS, MG #### [facility] [address] [address] [address] Brea Causey Sodium [Moles/Vol] 135 mmol/L Critically low 136-145 Th [facility] Comment on above: Performed By: #### U CLINT, CMP, LIPID, DBIL, PHOS, MG #### [facility] [address] [place] [address] Dr. Brea Causey Urea nitrogen [Mass/Vol] 13.0 mg/dL Normal 7.0-18.0 [facility] Comment on above: Performed By: #### U CLINT, CMP, LIPID, DBIL, PHOS, MG #### [facility] [address] [address] [address] Brea Causye Urea nitrogen/Creatinine [Mass ratio] 13.0 mg/mg Normal [facility] Comment on above: Performed By: #### U CLINT, CMP, LIPID, DBIL, PHOS, MG #### [facility] [address] [place] [address] Dr. Brea Causey URIC ACID SERUMon 03-08-2022 Urate [Mass/Vol] 7.3 mg/dL Critically high 3.5-7.2 [facility] Comment on above: Performed By: #### U CLINT, CMP, LIPID, DBIL, PHOS, MG #### [facility] [address] [address] [address] Brea Snyder 03-05-2022 L - -------- Specimen: [id number] Received: 03/05/22 Status: CHERI Irene Num: [id number] Spec Type: Surgical Subm Dr: Tj Wells MD Tissues: A Colon Biopsy (COLON BX) B Colon Biopsy (DIVERTICULAR COLITIS) Procedures: HE Stain/4, Gross/Micro L4/2 -------- Age/ Patient Sex Location Account Attending Physician -------- Roger Suarez 71/M [id number] Tj Wells MD -------- SPEC NUM: [id number] RECD: 03/05/22 STATUS: CHERI REMeera NUM: [id number] ESTEFANI: 03/05/22 DR: Tj Wells MD ENTERED: [...] in one cassette labeled B1. -------- Specimen: [id number] Received: 03/05/22 Status: CHERI [place] Num: [id number] Spec Type: Surgical Subm Dr: Tj Wells MD Tissues: A Colon Biopsy (COLON BX) B Colon Biopsy (DIVERTICULAR COLITIS) Procedures: HE Stain/4, Gross/Micro L4/2 -------- Patient: Roger Suarez [id number] (Continued) -------- Specimen: [id number] Received: 03/05/22 (Continued) Signed (signature on file) Kalpana Shaw MD 03/07/22 1025 -------- Specimen: [id number] Received: 03/05/22 Status: CHERI [place] Num: [id number] Spec Type: Surgical Subm Dr: Tj Wells MD Tissues: A Colon Biopsy (COLON BX) B Colon Biopsy (DIVERTICULAR COLITIS) Procedures: HE Stain/4, Gross/Micro L4/2 -------- Patient: SuarezRoger [id number] (Continued) -------- Specimen: [id number] Received: 03/05/22 (Continued) Microscopic Description A. Two glass slides with H E stained material have been examined. The microscopic findings support the above pathologic diagnosis. B. Two glass slides with H E stained material have been examined. The microscopic findings support the above pathologic diagnosis. CPT Codes 72117?2 -------- -------- Specimen: [id number] Received: 03/05/22 Status: CHERI [place] Num: [id number] Spec Type: Surgical Subm Dr: Tj Wells MD Tissues: A Colon Biopsy (COLON BX) B Colon Biopsy (DIVERTICULAR COLITIS) Procedures: HE Stain/4, Gross/Micro L4/2 -------- Patient: Roger Suarez Tyson [id number] (Continued) -------- Signed (signature on file) Kalpana Shaw MD 03/07/22 1025 [facility] COVID-19 Antigenon 2 COVID-19 Antigen Healthcare [...] developed and its performance characteristic determined by [employer] and validated at [facility]. This test has not been FDA [...] for SARS Antigen by ROCHELLE PERFORMED BY: [place] [id number] PATHOLOGIST SPECIALIST ICU FEI WOODURFF M.D. Normal [facility] Comment on above: Performed By: #### C OVID-19 MARQUISE, SOFIANEG #### [address] COVID-19 SOFIAOrdered By: Sheila Wells on 03-01-2022 SARS-CoV+SARS-CoV-2 (COVID-19) Ag IA.rapid Ql (Resp) Negative Negative [facility] Comment on above: This is a duplicate Marquise SARS Antigen (ROCHELLE) result to be used for statistical tracking purpose only. No Panel InformationOrdered By: Tj Wells on 03-01-2022 SARS Antigen (LFIA) [facility] Marquise Ag Negativeon 03-01-20 22 Marquise Ag Negative Negative Normal Negative [facility] Comment on above: Result Comment: This is a duplicate Marquise SARS Antigen (ROCHELLE) result to be used for statistical tracking purpose only. PERFORMED BY: [place] [id number] PATHOLOGIST SPECIALIST ICU FEI WOODRUFF M.D. Performed By: #### C OVID-19 MARQUISE, SOFIANEG #### [facility] [address] FK506 (TACROLIMUS) WHOLE BLO ODon 02-05-2022 Tacrolimus (FK506), Blood 5.4 ng/mL Normal 2.0-20.0 [facility] Comment on above: Result Comment: Trou gh (immediately following transplant) 15.0 . Trough (steady state, 2 weeks or more after transplant): 3.0 - 8.0 . Performed by LC-MS/MS technology. Performed By: #### U CLINT, CMP, LIPID, DBIL, PHOS, MG #### [facility] [address] [place] [address] Dr. Brea Causey BILIRUBIN CONJUGATED (DIRECT )on 02-01-2022 BILI, CONJUGATED 0.1 mg/dL Normal 0.0-0.2 [facility] Comment on above: Performed By: #### C BC #### [facility] [address] [place] [address] Dr. Brea Causey CBC AUTO DIFFon 02-01-2022 BASO # 0.0 103/ul Normal 0.0-0.1 [facility] Comment on above: Performed By: #### B KVIRUS #### [facility] [address] [place] [address] Dr. Brea Causey Basophils/100 WBC (Bld) 0.6 % Normal 0.2-2.0 [facility] Comment on above: Performed By: #### B KVIRUS #### [facility] [address] [place] [address] Dr. Brea Causey EO # 0.2 103/ul Normal 0.0-0.7 [facility] Comment on above: Performed By: #### B KVIRUS #### [facility] [address] [place] [address] Dr. Brea Causey Eosinophils/100 WBC (Bld) 3.5 % Normal 0.9-7.0 [facility] Comment on above: Performed By: #### B KVIRUS #### [facility] [address] [place] [address] Dr. Brea Causey Erythrocyte distribution width (RBC) [Ratio] 13.0 % Normal 11.0-15.0 [facility] [facility] Comment on above: Performed By: #### B KVIRUS #### [facility] [address] [place] [address] Dr. Brea Causey Hematocrit (Bld) [Volume fraction] 36.9 % Critically low 42.0-54.0 [facility] Comment on above: Performed By: #### B KVIRUS #### [facility] [address] [place] [address] Dr. Brea Causey Hemoglobin (Bld) [Mass/Vol] 12.0 g/dL Critically low 14.0-18.0 [facility] Comment on above: Performed By: #### B KVIRUS #### [facility] [address] [place] [address] Dr. Brea Causey IG # 0.07 10e3/ul Critically high 0.00-0.03 [facility] Comment on above: Performed By: #### B KVIRUS #### [facility] [address] [place] [address] Dr. Brea Causey IG % 1.0 % Critically high 0.0-0.5 [facility] Comment on above: Performed By: #### B KVIRUS #### [facility] [address] [place] [address] Dr. Brea Causey LYMPH # 1.0 103/ul Critically low 1.2-3.[address] [facility] Comment on above: Performed By: #### B KVIRUS #### [facility] [address] [place] [address] Dr. Brea Causey Lymphocytes/100 WBC (Bld) 14.2 % Critically low 20.5-60.0 [facility] Comment on above: Performed By: #### B KVIRUS #### [facility] [address] [place] [address] Dr. Brea Causey MANUAL DIFF REQ NO Normal [facility] Comment on above: Performed By: #### B KVIRUS #### [facility] [address] [place] [address] Dr. Brea Causey MCH (RBC) [Entitic mass] 29.1 pg Normal 25.9-34.0 [facility] Comment on above: Performed By: #### B KVIRUS #### [facility] [address] [place] [address] Dr. Brea Causey MCHC (RBC) [Mass/Vol] 32.5 g/dL Normal 29.9-35.2 [facility] Comment on above: Performed By: #### B KVIRUS #### [facility] [address] [place] [address] Dr. Brea Causey MCV (RBC) [Entitic vol] 89.6 fL Normal 80.0-94.0 [facility] Comment on above: Performed By: #### B KVIRUS #### [facility] [address] [place] [address] Dr. Brea Causey MONO # 0.7 103/ul Normal 0.3-0.8 [facility] Comment on above: Performed By: #### B KVIRUS #### [facility] [address] [place] [address] Dr. Brea Causey Monocytes/100 WBC (Bld) 9.9 % Normal 1.7-12.0 [facility] Comment on above: Performed By: #### B KVIRUS #### [facility] [address] [place] [address] Dr. Brea Causey NEUT # 4.9 103/ul Normal 1.4-6.5 [facility] Comment on above: Performed By: #### B KVIRUS #### [facility] [address] [place] [address] Dr. Brea Causey Neutrophils/100 WBC (Bld) 70.8 % Normal 43.0-75.0 [facility] Comment on above: Performed By: #### B KVIRUS #### [facility] [address] [place] [address] Dr. Brea Causey Platelet mean volume (Bld) [Entitic vol] 9.6 fL Normal 9.5-13.5 [facility] Comment on above: Performed By: #### B KVIRUS #### [facility] [address] [place], [place] [id number] Dr. Brea Causey PLT 247 103/ul Normal 150-450 [facility] Comment on above: Performed By: #### B KVIRUS #### [facility] [address] [address] [address] Brea Causey RBC 4.12 106/ul Critically low 4.70-6.10 [facility] Comment on above: Performed By: #### B KVIRUS #### [facility] [address] [place] [address] Dr. Brea Causey WBC 6.9 103/ul Normal 4.0-11.0 [facility] Comment on above: Performed By: #### B KVIRUS #### [facility] [address] [place] [address] Dr. Brea Causey LIPID PROFILEon 02-01-2022 CHOL-HDL RATIO NORM SEE BELOW Normal [facility] Comment on above: Result Comment: 3.3 - 4.4 LOW RISK 4.4 - 7.1 AVERAGE RISK 7.1 - 11.0 MODERATE RISK >11.0 HIGH RISK Performed By: #### C BC #### [facility] [address] [place] [address] Dr. Brea Causey Cholesterol [Mass/Vol] 77 mg/dL Normal <=200 [facility] Comment on above: Performed By: #### C BC #### [facility] [address] [place] [address] Dr. Brea Causey Cholesterol in HDL [Mass/Vol] 40 mg/dL Normal 40-60 [facility] Comment on above: Performed By: #### C BC #### [facility] [address] [place] [address] Dr. Brea Causey Cholesterol in LDL [Mass/Vol] 21.0 mg/dL Normal [facility] Comment on above: Performed By: #### C BC #### [facility] [address] [place] [address] Dr. Brea Causey Cholesterol.total/Cho lesterol in HDL [Mass ratio] 1.9 {ratio} Normal [facility] Comment on above: Performed By: #### C BC #### [facility] [address] [address] [address] Brea Causey HDL NORMAL > or = 60 mg/dl - LO W CARDIOVASCULAR RISK <40 mg/dl - HIGH CARDIOVASCULAR RISK Normal [facility] Comment on above: Performed By: #### C BC #### [facility] [address] [address] [address] Brea Causey LDL CALC NORMAL SEE BELOW Normal [facility] Comment on above: Result Comment: <100 mg/dl OPTIMAL 100 - 129 mg/dl NEAR OR ABOVE OPTIMAL 130 - 159 mg/dl BORDERLINE HIGH 160 - 189 mg/dl HIGH >190 mg/dl VERY HIGH Performed By: #### C BC #### [facility] [address] [address] [address] Brea Causey Triglyceride [Mass/Vol] 80 mg/dL Normal <=150 [facility] Comment on above: Performed By: #### C BC #### [facility] [address] [address] [address] Brea Causey VLDL CALC 16.0 mg/dL Normal [facility] Comment on above: Performed By: #### C BC #### [facility] [address] [address] [address] Brea Causey MAGNESIUMon 02-01-2022 Magnesium [Mass/Vol] 1.5 mg/dL Critically low 1.8-2.4 [facility] Comment on above: Performed By: #### C BC #### [facility] [address] [address] [address] Brea Causey PHOSPHORUSon 02-01-2022 Phosphate [Mass/Vol] 4.1 mg/dL Normal 2.6-4.7 [facility] Comment on above: Performed By: #### C BC #### [facility] [address] [address] [address] Brea Causey PROF 14(COMP METB)on 022 Albumin [Mass/Vol] 4.0 g/dL Normal 3.4-5.0 [facility] Comment on above: Performed By: #### C BC #### [facility] [address] [place] [address] Dr. Brea Causey Albumin/Globulin [Mass ratio] 1.3 {ratio} Normal [facility] Comment on above: Performed By: #### C BC #### [facility] [address] [place] [address] Dr. Brea Causey ALP [Catalytic activity/Vol] 162 U/L Critically high 46-116 [facility] Comment on above: Performed By: #### C BC #### [facility] [address] [place] [address] Dr. Brea Causey ALT [Catalytic activity/Vol] 25 U/L Normal 16-63 [facility] Comment on above: Performed By: #### C BC #### [facility] [address] [place] [address] Dr. Brea Causey Anion gap [Moles/Vol] 11.1 mmol/L Normal [facility] Comment on above: Performed By: #### C BC #### [facility] [address] [place] [address] Dr. Brea Causey AST [Catalytic activity/Vol] 16 U/L Normal 15-37 [facility] Comment on above: Performed By: #### C BC #### [facility] [address] [place] [address] Dr. Brea Causey Bilirubin [Mass/Vol] 0.4 mg/dL Normal 0.2-1.0 [facility] Comment on above: Performed By: #### C BC #### [facility] [address] [place] [address] Dr. Brea Causey Calcium [Mass/Vol] 8.2 mg/dL Critically low 8.5-10.1 [facility] Comment on above: Performed By: #### C BC #### [facility] [address] [place] [address] Dr. Brea Causey Chloride [Moles/Vol] 99 mmol/L Normal 98-107 [facility] Comment on above: Performed By: #### C BC #### [facility] [address] [place] [address] Dr. Brea Causey CO2 [Moles/Vol] 28.1 mmol/L Normal 21.0-32.0 [facility] Comment on above: Performed By: #### C BC #### [facility] [address] [address] [address] Brea Causey Creatinine [Mass/Vol] 1.13 mg/dL Normal 0.70-1.30 [facility] Comment on above: Performed By: #### C BC #### [facility] [address] [address] [address] Brea Causey EGFR-AF TUNISIAN >60 Normal >=60 [facility] Comment on above: Performed By: #### C BC #### [facility] [address] [address] [address] Brea Causey EGFR-NON AF TUNISIAN >60 Normal >=60 [facility] Comment on above: Performed By: #### C BC #### [facility] [address] [place] [address] Dr. Brea Causey Globulin (S) [Mass/Vol] 3.1 g/dL Normal [facility] Comment on above: Performed By: #### C BC #### [facility] [address] [place] [address] Dr. Brea Causey Glucose [Mass/Vol] 177 mg/dL Critically high 74-106 [facility] Comment on above: Performed By: #### C BC #### [facility] [address] [place] [address] Dr. Brea Causey Potassium [Moles/Vol] 5.2 mmol/L Critically high 3.5-5.1 [facility] Comment on above: Performed By: #### C BC #### [facility] [address] [place] [address] Dr. Brea Causey Protein [Mass/Vol] 7.1 g/dL Normal 6.4-8.2 [facility] Comment on above: Performed By: #### C BC #### [facility] [address] [place] [address] Dr. Brea Causey Sodium [Moles/Vol] 133 mmol/L Critically low 136-145 [facility] Comment on above: Performed By: #### C BC #### [facility] [address] [place] [address] Dr. Brea Causey Urea nitrogen [Mass/Vol] 12.0 mg/dL Normal 7.0-18.0 [facility] Comment on above: Performed By: #### C BC #### [facility] [address] [place] [address] Dr. Brea Causey Urea nitrogen/Creatinine [Mass ratio] 10.6 mg/mg Normal [facility] Comment on above: Performed By: #### C BC #### [facility] [address] [place] [address] Dr. Brea Causey URIC ACID SERUMon 02-01-2022 Urate [Mass/Vol] 7.7 mg/dL Critically high 3.5-7.2 [facility] Comment on above: Performed By: #### C BC #### [facility] [address] [place] [address] Dr. Brea Causey FK506 (TACROLIMUS) WHOLE BLO ODon 01-06-2022 Tacrolimus (FK506), Blood 11.4 ng/mL Normal 2.0-20.0 [facility] Comment on above: Result Comment: Trou gh (immediately following transplant) 15.0 . Trough (steady state, 2 weeks or more after transplant): 3.0 - 8.0 . Performed by LC-MS/MS technology. Performed By: #### B KVIRUS #### [facility] [address] [place] [address] Dr. Brea Causey BILIRUBIN CONJUGATED (DIRECT )on 01-04-2022 BILI, CONJUGATED 0.1 mg/dL Normal 0.0-0.2 [facility] Comment on above: Performed By: #### U CLINT, CMP, LIPID, DBIL, PHOS, MG #### [facility] [address] [place] [address] Dr. Brea Causey BOX TEST SENT OUTon 01-05-20 22 SENT TO REF LAB 01/04/2022 Normal [facility] Comment on above: Performed By: #### U CLINT, CMP, LIPID, DBIL, PHOS, MG #### [facility] [address] [place] [address] Dr. Brea Causey CBC AUTO DIFFon 01-04-2022 BASO # 0.0 103/ul Normal 0.0-0.1 [facility] Comment on above: Performed By: #### U CLINT, CMP, LIPID, DBIL, PHOS, MG #### [facility] [address] [address] [address] Brea Causey Basophils/100 WBC (Bld) 0.5 % Normal 0.2-2.0 [facility] Comment on above: Performed By: #### U CLINT, CMP, LIPID, DBIL, PHOS, MG #### [facility] [address] [place] [address] Dr. Brea Causey EO # 0.3 103/ul Normal 0.0-0.7 [facility] Comment on above: Performed By: #### U CLINT, CMP, LIPID, DBIL, PHOS, MG #### [facility] [address] [place] [address] Dr. Brea Causey Eosinophils/100 WBC (Bld) 3.9 % Normal 0.9-7.0 [facility] Comment on above: Performed By: #### U CLINT, CMP, LIPID, DBIL, PHOS, MG #### [facility] [address] [place] [address] Dr. Brea Causey Erythrocyte distribution width (RBC) [Ratio] 13.1 % Normal 11.0-15.0 [facility] Comment on above: Performed By: #### U CLINT, CMP, LIPID, DBIL, PHOS, MG #### [facility] [address] [place] [address] Dr. Brea Causey Hematocrit (Bld) [Volume fraction] 37.4 % Critically low 42.0-54.0 [facility] Comment on above: Performed By: #### U CLINT, CMP, LIPID, DBIL, PHOS, MG #### [facility] [address] [place] [address] Dr. Brea Causey Hemoglobin (Bld) [Mass/Vol] 12.0 g/dL Critically low 14.0-18.0 [facility] Comment on above: Performed By: #### U CLINT, CMP, LIPID, DBIL, PHOS, MG #### [facility] [address] [address] [address] Brea Causey IG # 0.07 10e3/ul Critically high 0.00-0.03 [facility] Comment on above: Performed By: #### U CLINT, CMP, LIPID, DBIL, PHOS, MG #### [facility] [address] [address] [address] Brea Causey IG % 1.1 % Critically high 0.0-0.5 [facility] Comment on above: Performed By: #### U CLINT, CMP, LIPID, DBIL, PHOS, MG #### [facility] [address] [place] [address] Dr. Brea Causey LYMPH # 0.8 103/ul Critically low 1.2-3.[address] [facility] Comment on above: Performed By: #### U CLINT, CMP, LIPID, DBIL, PHOS, MG #### [facility] [address] [place] [address] Dr. Brea Causey Lymphocytes/100 WBC (Bld) 12.2 % Critically low 20.5-60.0 [facility] Comment on above: Performed By: #### U CLINT, CMP, LIPID, DBIL, PHOS, MG #### [facility] [address] [place] [address] Dr. Brea Causey MANUAL DIFF REQ NO Normal [facility] Comment on above: Performed By: #### U CLINT, CMP, LIPID, DBIL, PHOS, MG #### [facility] [address] [place] [address] Dr. Brea Causey MCH (RBC) [Entitic mass] 29.1 pg Normal 25.9-34.0 [facility] Comment on above: Performed By: #### U CLINT, CMP, LIPID, DBIL, PHOS, MG #### [facility] [address] [place] [address] Dr. Brea Causey MCHC (RBC) [Mass/Vol] 32.1 g/dL Normal 29.9-35.2 [facility] Comment on above: Performed By: #### U CLINT, CMP, LIPID, DBIL, PHOS, MG #### [facility] [address] [place] [address] Dr. Brea Causey MCV (RBC) [Entitic vol] 90.6 fL Normal 80.0-94.0 [facility] Comment on above: Performed By: #### U CLINT, CMP, LIPID, DBIL, PHOS, MG #### [facility] [address] [place] [address] Dr. Brea Causey MONO # 0.5 103/ul Normal 0.3-0.8 [facility] Comment on above: Performed By: #### U CLINT, CMP, LIPID, DBIL, PHOS, MG #### [facility] [address] [place] [address] Dr. Brea Causey Monocytes/100 WBC (Bld) 8.0 % Normal 1.7-12.0 [facility] Comment on above: Performed By: #### U CLINT, CMP, LIPID, DBIL, PHOS, MG #### [facility] [address] [place] [address] Dr. Brea Causey NEUT # 5.0 103/ul Normal 1.4-6.5 [facility] Comment on above: Performed By: #### U CLINT, CMP, LIPID, DBIL, PHOS, MG #### [facility] [address] [place] [address] Dr. Brea Causey Neutrophils/100 WBC (Bld) 74.3 % Normal 43.0-75.0 [facility] Comment on above: Performed By: #### U CLINT, CMP, LIPID, DBIL, PHOS, MG #### [facility] [address] [place] [address] Dr. Brea Causey Platelet mean volume (Bld) [Entitic vol] 9.5 fL Normal 9.5-13.5 [facility] Comment on above: Performed By: #### U CLINT, CMP, LIPID, DBIL, PHOS, MG #### [facility] [address] [place] [address] Dr. Brea Causey PLT 243 103/ul Normal 150-450 [facility] Comment on above: Performed By: #### U CLINT, CMP, LIPID, DBIL, PHOS, MG #### [facility] [address] [address] [address] Brea Causey RBC 4.13 106/ul Critically low 4.70-6.10 [facility] Comment on above: Performed By: #### U CLINT, CMP, LIPID, DBIL, PHOS, MG #### [facility] [address] [address] [address] Brea Causey WBC 6.7 103/ul Normal 4.0-11.0 [facility] Comment on above: Performed By: #### U CLINT, CMP, LIPID, DBIL, PHOS, MG #### [facility] [address] [place] [address] Dr. Brea Causey LIPID PROFILEon 01-04-2022 CHOL-HDL RATIO NORM SEE BELOW Normal [facility] Comment on above: Result Comment: 3.3 - 4.4 LOW RISK 4.4 - 7.1 AVERAGE RISK 7.1 - 11.0 MODERATE RISK >11.0 HIGH RISK Performed By: #### U CLINT, CMP, LIPID, DBIL, PHOS, MG #### [facility] [address] [place] [address] Dr. Brea Causey Cholesterol [Mass/Vol] 81 mg/dL Normal <=200 [facility] Comment on above: Performed By: #### U CLINT, CMP, LIPID, DBIL, PHOS, MG #### [facility] [address] [place] [address] Dr. Brea Causey Cholesterol in HDL [Mass/Vol] 43 mg/dL Normal 40-60 [facility] Comment on above: Performed By: #### U CLINT, CMP, LIPID, DBIL, PHOS, MG #### [facility] [address] [place] [address] Dr. Brea Causey Cholesterol in LDL [Mass/Vol] 26.0 mg/dL Normal [facility] Comment on above: Performed By: #### U CLINT, CMP, LIPID, DBIL, PHOS, MG #### [facility] [address] [address] [address] Brea Causey Cholesterol.total/Cho lesterol in HDL [Mass ratio] 1.9 {ratio} Normal [facility] Comment on above: Performed By: #### U CLINT, CMP, LIPID, DBIL, PHOS, MG #### [facility] [address] [address] [address] Brea Causey HDL NORMAL > or = 60 mg/dl - LO W CARDIOVASCULAR RISK <40 mg/dl - HIGH CARDIOVASCULAR RISK Normal [facility] Comment on above: Performed By: #### U CLINT, CMP, LIPID, DBIL, PHOS, MG #### [facility] [address] [address] [address] Brea Causey LDL CALC NORMAL SEE BELOW Normal [facility] Comment on above: Result Comment: <100 mg/dl OPTIMAL 100 - 129 mg/dl NEAR OR ABOVE OPTIMAL 130 - 159 mg/dl BORDERLINE HIGH 160 - 189 mg/dl HIGH >190 mg/dl VERY HIGH Performed By: #### U CLINT, CMP, LIPID, DBIL, PHOS, MG #### [facility] [address] [address] [address] Brea Causey Triglyceride [Mass/Vol] 60 mg/dL Normal <=150 [facility] Comment on above: Performed By: #### U CLINT, CMP, LIPID, DBIL, PHOS, MG #### [facility] [address] [address] [address] Brea Causey VLDL CALC 12.0 mg/dL Normal [facility] Comment on above: Performed By: #### U CLINT, CMP, LIPID, DBIL, PHOS, MG #### [facility] [address] [address] [address] Brea Causey MAGNESIUMon 01-04-2022 Magnesium [Mass/Vol] 1.4 mg/dL Critically low 1.8-2.4 [facility] Comment on above: Performed By: #### U CLINT, CMP, LIPID, DBIL, PHOS, MG #### [facility] [address] [address] [address] Brea Causey PHOSPHORUSon 01-04-2022 Phosphate [Mass/Vol] 4.4 mg/dL Normal 2.6-4.7 [facility] Comment on above: Performed By: #### U CLINT, CMP, LIPID, DBIL, PHOS, MG #### [facility] [address] [place] [address] Dr. Brea Causey PROF 14(COMP METB)on 022 Albumin [Mass/Vol] 3.9 g/dL Normal 3.4-5.0 [facility] Comment on above: Performed By: #### U CLINT, CMP, LIPID, DBIL, PHOS, MG #### [facility] [address] [address] [address] Brea Causey Albumin/Globulin [Mass ratio] 1.2 {ratio} Normal [facility] Comment on above: Performed By: #### U CLINT, CMP, LIPID, DBIL, PHOS, MG #### [facility] [address] [place] [address] Dr. Brea Causey ALP [Catalytic activity/Vol] 155 U/L Critically high 46-116 [facility] Comment on above: Performed By: #### U CLINT, CMP, LIPID, DBIL, PHOS, MG #### [facility] [address] [place] [address] Dr. Brea Causey ALT [Catalytic activity/Vol] 27 U/L Normal 16-63 [facility] Comment on above: Performed By: #### U CLINT, CMP, LIPID, DBIL, PHOS, MG #### [facility] [address] [address] [address] Brea Causey Anion gap [Moles/Vol] 14.6 mmol/L Normal [facility] Comment on above: Performed By: #### U CLINT, CMP, LIPID, DBIL, PHOS, MG #### [facility] [address] [place] [address] Dr. Brea Causey AST [Catalytic activity/Vol] 17 U/L Normal 15-37 [facility] Comment on above: Performed By: #### U CLINT, CMP, LIPID, DBIL, PHOS, MG #### [facility] [address] [address] [address] Brea Causey Bilirubin [Mass/Vol] 0.3 mg/dL Normal 0.2-1.0 [facility] Comment on above: Performed By: #### U CLINT, CMP, LIPID, DBIL, PHOS, MG #### [facility] [address] [place] [address] Dr. Brea Causey Calcium [Mass/Vol] 8.1 mg/dL Critically low 8.5-10.1 Th [facility] Comment on above: Performed By: #### U CLINT, CMP, LIPID, DBIL, PHOS, MG #### [facility] [address] [address] [address] Brea Causey Chloride [Moles/Vol] 99 mmol/L Normal 98-107 [facility] Comment on above: Performed By: #### U CLINT, CMP, LIPID, DBIL, PHOS, MG #### [facility] [address] [place] [address] Dr. Brea Causey CO2 [Moles/Vol] 25.0 mmol/L Normal 21.0-32.0 [facility] Comment on above: Performed By: #### U CLINT, CMP, LIPID, DBIL, PHOS, MG #### [facility] [address] [place] [address] Dr. Brea Causey Creatinine [Mass/Vol] 1.05 mg/dL Normal 0.70-1.30 [facility] Comment on above: Performed By: #### U CLINT, CMP, LIPID, DBIL, PHOS, MG #### [facility] [address] [place] [address] Dr. Brea Causey EGFR-AF TUNISIAN >60 Normal >=60 [facility] Comment on above: Performed By: #### U CLINT, CMP, LIPID, DBIL, PHOS, MG #### [facility] [address] [place] [address] Dr. Brea Causey EGFR-NON AF TUNISIAN >60 Normal >=60 [facility] Comment on above: Performed By: #### U CLINT, CMP, LIPID, DBIL, PHOS, MG #### [facility] [address] [address] [address] Brea Causey Globulin (S) [Mass/Vol] 3.2 g/dL Normal [facility] Comment on above: Performed By: #### U CLINT, CMP, LIPID, DBIL, PHOS, MG #### [facility] [address] [place] [address] Dr. Brea Causey Glucose [Mass/Vol] 177 mg/dL Critically high 74-106 T [facility] Comment on above: Performed By: #### U CLINT, CMP, LIPID, DBIL, PHOS, MG #### [facility] [address] [address] [address] Brea Causey Potassium [Moles/Vol] 4.6 mmol/L Normal 3.5-5.1 [facility] Comment on above: Performed By: #### U CLINT, CMP, LIPID, DBIL, PHOS, MG #### [facility] [address] [place] [address] Dr. Brea Causey Protein [Mass/Vol] 7.1 g/dL Normal 6.4-8.2 [facility] Comment on above: Performed By: #### U CLNIT, CMP, LIPID, DBIL, PHOS, MG #### [facility] [address] [place] [address] Dr. Brea Causey Sodium [Moles/Vol] 134 mmol/L Critically low 136-145 Th [facility] Comment on above: Performed By: #### U CLINT, CMP, LIPID, DBIL, PHOS, MG #### [facility] [address] [place] [address] Dr. Brea Causey Urea nitrogen [Mass/Vol] 14.0 mg/dL Normal 7.0-18.0 [facility] Comment on above: Performed By: #### U CLINT, CMP, LIPID, DBIL, PHOS, MG #### [facility] [address] [place] [address] Dr. Brea Causey Urea nitrogen/Creatinine [Mass ratio] 13.3 mg/mg Normal [facility] Comment on above: Performed By: #### U CLINT, CMP, LIPID, DBIL, PHOS, MG #### [facility] [address] [place] [address] Dr. Brea Causey URIC ACID SERUMon 01-04-2022 Urate [Mass/Vol] 7.6 mg/dL Critically high 3.5-7.2 [facility] Comment on above: Performed By: #### U CLINT, CMP, LIPID, DBIL, PHOS, MG #### [facility] [address] [place] [address] Dr. Brea Causey BK VIRUS PCR QUANTon 022 BKV DNA QUANT PCR PLASMA Negative Normal Negative [facility] Comment on above: Result Comment: No B K DNA detected. . The linear range of the assay is 22 - 100,000,000 IU/mL. Performed By: #### B KVIRUS #### [facility] [address] [place] [address] Dr. Brea Causey Log10 BKV DNA Plasma Normal [facility] Comment on above: Performed By: #### B KVIRUS #### [facility] [address] [place] [address] Dr. Brea Causey FK506 (TACROLIMUS) WHOLE BLO ODon 12-03-2021 Tacrolimus (FK506), Blood 5.6 ng/mL Normal 2.0-20.0 [facility] Comment on above: Result Comment: Trou gh (immediately following transplant) 15.0 . Trough (steady state, 2 weeks or more after transplant): 3.0 - 8.0 . Performed by LC-MS/MS technology. Performed By: #### U CLINT, CMP, LIPID, DBIL, PHOS, MG #### [facility] [address] [place] [address] Dr. Brea Causey TESTOSTERONE, FREE,DIRECT, T OTALon 12-03-2021 Free Testosterone(Direct) 7.5 pg/mL Normal 6.6-18.1 [facility] Comment on above: Result Comment: Perf ormed at: BN Performed By: #### U CLINT, CMP, LIPID, DBIL, PHOS, MG #### [facility] [address] [place] [address] Dr. Brea Causey Testosterone [Mass/Vol] 467 ng/dL Normal 264-916 [facility] Comment on above: Result Comment: Adul t male reference interval is based on a population of healthy nonobese males (BMI <30) between 19 and 39 years old. daniel Harris.al. JCEM 2017,102;[id number]. PMID: [id number]. Performed at: CB Performed By: #### U CLINT, CMP, LIPID, DBIL, PHOS, MG #### [facility] [address] [place] [address] Dr. Brea Causey BILIRUBIN CONJUGATED (DIRECT )on 11-30-2021 BILI, CONJUGATED 0.2 mg/dL Normal 0.0-0.2 [facility] Comment on above: Performed By: #### B KVIRUS #### [facility] [address] [place] [address] Dr. Brea Causey CBC AUTO DIFFon 11-30-2021 BASO # 0.0 103/ul Normal 0.0-0.1 [facility] Comment on above: Performed By: #### U CLINT, CMP, LIPID, DBIL, PHOS, MG #### [facility] [address] [place] [address] Dr. Brea Causey Basophils/100 WBC (Bld) 0.6 % Normal 0.2-2.0 [facility] Comment on above: Performed By: #### U CLINT, CMP, LIPID, DBIL, PHOS, MG #### [facility] [address] [place] [address] Dr. Brea Causey EO # 0.2 103/ul Normal 0.0-0.7 [facility] Comment on above: Performed By: #### U CLINT, CMP, LIPID, DBIL, PHOS, MG #### [facility] [address] [place] [address] Dr. Brea Causey Eosinophils/100 WBC (Bld) 2.7 % Normal 0.9-7.0 [facility] Comment on above: Performed By: #### U CLINT, CMP, LIPID, DBIL, PHOS, MG #### [facility] [address] [place] [address] Dr. Brea Causey Erythrocyte distribution width (RBC) [Ratio] 13.0 % Normal 11.0-15.0 [facility] Comment on above: Performed By: #### U CLINT, CMP, LIPID, DBIL, PHOS, MG #### [facility] [address] [place] [address] Dr. Brea Causey Hematocrit (Bld) [Volume fraction] 37.6 % Critically low 42.0-54.0 [facility] Comment on above: Performed By: #### U CLINT, CMP, LIPID, DBIL, PHOS, MG #### [facility] [address] [place] [address] Dr. Brea Causey Hemoglobin (Bld) [Mass/Vol] 12.4 g/dL Critically low 14.0-18.0 [facility] Comment on above: Performed By: #### U CLINT, CMP, LIPID, DBIL, PHOS, MG #### [facility] [address] [place] [address] Dr. Brea Causey IG # 0.06 10e3/ul Critically high 0.00-0.03 [facility] Comment on above: Performed By: #### U CLINT, CMP, LIPID, DBIL, PHOS, MG #### [facility] [address] [place] [address] Dr. Brea Causey IG % 0.9 % Critically high 0.0-0.5 [facility] Comment on above: Performed By: #### U CLINT, CMP, LIPID, DBIL, PHOS, MG #### [facility] [address] [place] [address] Dr. Brea Causey LYMPH # 1.0 103/ul Critically low 1.2-3.[address] [facility] Comment on above: Performed By: #### U CLINT, CMP, LIPID, DBIL, PHOS, MG #### [facility] [address] [place] [address] Dr. Brea Causey Lymphocytes/100 WBC (Bld) 14.6 % Critically low 20.5-60.0 [facility] Comment on above: Performed By: #### U CLINT, CMP, LIPID, DBIL, PHOS, MG #### [facility] [address] [place] [address] Dr. Brea Causey MANUAL DIFF REQ NO Normal [facility] Comment on above: Performed By: #### U CLINT, CMP, LIPID, DBIL, PHOS, MG #### [facility] [address] [place] [address] Dr. Brea Causey MCH (RBC) [Entitic mass] 29.4 pg Normal 25.9-34.0 [facility] Comment on above: Performed By: #### U CLINT, CMP, LIPID, DBIL, PHOS, MG #### [facility] [address] [place] [address] Dr. Brea Causey MCHC (RBC) [Mass/Vol] 33.0 g/dL Normal 29.9-35.2 [facility] Comment on above: Performed By: #### U CLINT, CMP, LIPID, DBIL, PHOS, MG #### [facility] [address] [place] [address] Dr. Brea Causey MCV (RBC) [Entitic vol] 89.1 fL Normal 80.0-94.0 [facility] Comment on above: Performed By: #### U CLINT, CMP, LIPID, DBIL, PHOS, MG #### [facility] [address] [place] [address] Dr. Brea Causey MONO # 0.7 103/ul Normal 0.3-0.8 [facility] Comment on above: Performed By: #### U CLINT, CMP, LIPID, DBIL, PHOS, MG #### [facility] [address] [place] [address] Dr. Brea Causey Monocytes/100 WBC (Bld) 10.0 % Normal 1.7-12.0 [facility] Comment on above: Performed By: #### U CLINT, CMP, LIPID, DBIL, PHOS, MG #### [facility] [address] [place] [address] Dr. Brea Causey NEUT # 4.8 103/ul Normal 1.4-6.5 [facility] Comment on above: Performed By: #### U CLINT, CMP, LIPID, DBIL, PHOS, MG #### [facility] [address] [address] [address] Brea Causey Neutrophils/100 WBC (Bld) 71.2 % Normal 43.0-75.0 [facility] Comment on above: Performed By: #### U CLINT, CMP, LIPID, DBIL, PHOS, MG #### [facility] [address] [address] [address] Brea Causey Platelet mean volume (Bld) [Entitic vol] 9.0 fL Critically low 9.5-13.5 [facility] Comment on above: Performed By: #### U CLINT, CMP, LIPID, DBIL, PHOS, MG #### [facility] [address] [place] [address] Dr. Brea Causey PLT 280 103/ul Normal 150-450 [facility] Comment on above: Performed By: #### U CLINT, CMP, LIPID, DBIL, PHOS, MG #### [facility] [address] [place] [address] Dr. Brea Causey RBC 4.22 106/ul Critically low 4.70-6.10 [facility] Comment on above: Performed By: #### U CLINT, CMP, LIPID, DBIL, PHOS, MG #### [facility] [address] [place] [address] Dr. Brea Causey WBC 6.7 103/ul Normal 4.0-11.0 [facility] Comment on above: Performed By: #### U CLINT, CMP, LIPID, DBIL, PHOS, MG #### [facility] [address] [place] [address] Dr. Brea Causey GLYCOHEMOGLOBIN A1Con 2021 ADA RECOMMENDATION SEE BELOW Normal [facility] Comment on above: Result Comment: ADA RECOMMENDED LIMIT 4.0 - 6.0 ADA THERAPEUTIC TARGET < 7.0 ACTION SUGGESTED > 7.0 Performed By: #### B KVIRUS #### [facility] [address] [place] [address] Dr. Brea Causey Glucose [Mass/Vol] 171 mg/dL Normal [facility] Comment on above: Performed By: #### B KVIRUS #### [facility] [address] [address] [address] Brea Causey HbA1c (Bld) [Mass fraction] 7.6 % Critically high 4.5-6.2 [facility] Comment on above: Performed By: #### B KVIRUS #### [facility] [address] [address] [address] Brea Causey LIPID PROFILEon 11-30-2021 CHOL-HDL RATIO NORM SEE BELOW Normal [facility] Comment on above: Result Comment: 3.3 - 4.4 LOW RISK 4.4 - 7.1 AVERAGE RISK 7.1 - 11.0 MODERATE RISK >11.0 HIGH RISK Performed By: #### C BC #### [facility] [address] [place] [address] Dr. Brea Causey Cholesterol [Mass/Vol] 75 mg/dL Normal <=200 [facility] Comment on above: Performed By: #### C BC #### [facility] [address] [place] [address] Dr. Brea Causey Cholesterol in HDL [Mass/Vol] 41 mg/dL Normal 40-60 [facility] Comment on above: Performed By: #### C BC #### [facility] [address] [place] [address] Dr. Brea Causey Cholesterol in LDL [Mass/Vol] 18.6 mg/dL Normal [facility] Comment on above: Performed By: #### C BC #### [facility] [address] [address] [address] Brea Causey Cholesterol.total/Cho lesterol in HDL [Mass ratio] 1.8 {ratio} Normal [facility] Comment on above: Performed By: #### C BC #### [facility] [address] [place] [address] Dr. Brea Causey HDL NORMAL > or = 60 mg/dl - LO W CARDIOVASCULAR RISK <40 mg/dl - HIGH CARDIOVASCULAR RISK Normal [facility] Comment on above: Performed By: #### C BC #### [facility] [address] [address] [address] Brea Causey LDL CALC NORMAL SEE BELOW Normal [facility] Comment on above: Result Comment: <100 mg/dl OPTIMAL 100 - 129 mg/dl NEAR OR ABOVE OPTIMAL 130 - 159 mg/dl BORDERLINE HIGH 160 - 189 mg/dl HIGH >190 mg/dl VERY HIGH Performed By: #### C BC #### [facility] [address] [address] [address] Brea Causey Triglyceride [Mass/Vol] 77 mg/dL Normal <=150 [facility] Comment on above: Performed By: #### C BC #### [facility] [address] [place] [address] Dr. Brea Causey VLDL CALC 15.4 mg/dL Normal [facility] Comment on above: Performed By: #### C BC #### [facility] [address] [place] [address] Dr. Brea Causey MAGNESIUMon 11-30-2021 Magnesium [Mass/Vol] 1.4 mg/dL Critically low 1.8-2.4 [facility] Comment on above: Performed By: #### B KVIRUS #### [facility] [address] [place] [address] Dr. Brea Causey PHOSPHORUSon 11-30-2021 Phosphate [Mass/Vol] 4.1 mg/dL Normal 2.6-4.7 [facility] Comment on above: Performed By: #### C BC #### [facility] [address] [place] [address] Dr. Brea Causey PROF 14(COMP METB)on 022 Albumin [Mass/Vol] 4.2 g/dL Normal 3.4-5.0 [facility] Comment on above: Performed By: #### C BC #### [facility] [address] [place] [address] Dr. Brea Causey Albumin/Globulin [Mass ratio] 1.3 {ratio} Normal [facility] Comment on above: Performed By: #### C BC #### [facility] [address] [place] [address] Dr. Brea Causey ALP [Catalytic activity/Vol] 148 U/L Critically high 46-116 [facility] Comment on above: Performed By: #### C BC #### [facility] [address] [place] [address] Dr. Brea Causey ALT [Catalytic activity/Vol] 36 U/L Normal 16-63 [facility] Comment on above: Performed By: #### C BC #### [facility] [address] [address] [address] Brea Causey Anion gap [Moles/Vol] 14.7 mmol/L Normal [facility] Comment on above: Performed By: #### C BC #### [facility] [address] [place] [address] Dr. Brea Causey AST [Catalytic activity/Vol] 21 U/L Normal 15-37 [facility] Comment on above: Performed By: #### C BC #### [facility] [address] [place] [address] Dr. Brea Causey Bilirubin [Mass/Vol] 0.4 mg/dL Normal 0.2-1.0 [facility] Comment on above: Performed By: #### C BC #### [facility] [address] [place] [address] Dr. Brea Causey Calcium [Mass/Vol] 8.3 mg/dL Critically low 8.5-10.1 [facility] Comment on above: Performed By: #### C BC #### [facility] [address] [place] [address] Dr. Brea Causey Chloride [Moles/Vol] 98 mmol/L Normal 98-107 [facility] Comment on above: Performed By: #### C BC #### [facility] [address] [address] [address] Brea Causey CO2 [Moles/Vol] 27.2 mmol/L Normal 21.0-32.0 [facility] Comment on above: Performed By: #### C BC #### [facility] [address] [place] [address] Dr. Brea Causey Creatinine [Mass/Vol] 1.10 mg/dL Normal 0.70-1.30 [facility] Comment on above: Performed By: #### C BC #### [facility] [address] [address] [address] Brea Causey EGFR-AF TUNISIAN >60 Normal >=60 [facility] Comment on above: Performed By: #### C BC #### [facility] [address] [address] [address] Brea Causey EGFR-NON AF TUNISIAN >60 Normal >=60 [facility] Comment on above: Performed By: #### C BC #### [facility] [address] [address] [address] Brea Causey Globulin (S) [Mass/Vol] 3.2 g/dL Normal [facility] Comment on above: Performed By: #### C BC #### [facility] [address] [address] [address] Brea Causey Glucose [Mass/Vol] 173 mg/dL Critically high 74-106 T [facility] Comment on above: Performed By: #### C BC #### [facility] [address] [address] [address] Brea Causey Potassium [Moles/Vol] 4.9 mmol/L Normal 3.5-5.1 [facility] Comment on above: Performed By: #### C BC #### [facility] [address] [address] [address] Brea Causey Protein [Mass/Vol] 7.4 g/dL Normal 6.4-8.2 [facility] Comment on above: Performed By: #### C BC #### [facility] [address] [address] [address] Brea Causey Sodium [Moles/Vol] 135 mmol/L Critically low 136-145 [facility] Comment on above: Performed By: #### C BC #### [facility] [address] [address] [address] Brea Causey Urea nitrogen [Mass/Vol] 14.0 mg/dL Normal 7.0-18.0 [facility] Comment on above: Performed By: #### C BC #### [facility] [address] [place] [address] Dr. Brea Causey Urea nitrogen/Creatinine [Mass ratio] 12.7 mg/mg Normal [facility] Comment on above: Performed By: #### C BC #### [facility] [address] [place] [address] Dr. Brea Causey URIC ACID SERUMon 11-30-2021 Urate [Mass/Vol] 7.8 mg/dL Critically high 3.5-7.2 [facility] Comment on above: Performed By: #### C BC #### [facility] [address] [place] [address] Dr. Brea Causey BNPon 11-14-2021 Natriuretic peptide B (Bld) [Mass/Vol] 350.0 pg/mL Normal <=900.0 [facility] Comment on above: Performed By: #### C BC #### [facility] [address] [place] [address] Dr. Brea Causey CBC AUTO DIFFon 11-14-2021 BASO # 0.0 103/ul Normal 0.0-0.1 [facility] Comment on above: Performed By: #### C BC #### [facility] [address] [place] [address] Dr. Brea Causey Basophils/100 WBC (Bld) 0.1 % Critically low 0.2-2.0 [facility] Comment on above: Performed By: #### C BC #### [facility] [address] [place] [address] Dr. Brea Causey EO # 0.2 103/ul Normal 0.0-0.7 [facility] Comment on above: Performed By: #### C BC #### [facility] [address] [place] [address] Dr. Brea Causey Eosinophils/100 WBC (Bld) 1.4 % Normal 0.9-7.0 [facility] Comment on above: Performed By: #### C BC #### [facility] [address] [place] [address] Dr. Brea Causey Erythrocyte distribution width (RBC) [Ratio] 13.1 % Normal 11.0-15.0 [facility] Comment on above: Performed By: #### C BC #### [facility] [address] [address] [address] Brea Causey Hematocrit (Bld) [Volume fraction] 39.4 % Critically low 42.0-54.0 [facility] Comment on above: Performed By: #### C BC #### [facility] [address] [place] [address] Dr. Brea Causey Hemoglobin (Bld) [Mass/Vol] 13.2 g/dL Critically low 14.0-18.0 [facility] Comment on above: Performed By: #### C BC #### [facility] [address] [place] [address] Dr. Brea Causey IG # 0.11 10e3/ul Critically high 0.00-0.03 [facility] Comment on above: Performed By: #### C BC #### [facility] [address] [place] [address] Dr. Brea Causey IG % 0.6 % Critically high 0.0-0.5 [facility] Comment on above: Performed By: #### C BC #### [facility] [address] [place] [address] Dr. Brea Causey LYMPH # 1.1 103/ul Critically low 1.2-3.8 [facility] Comment on above: Performed By: #### C BC #### [facility] [address] [place] [address] Dr. Brea Causey Lymphocytes/100 WBC (Bld) 6.7 % Critically low 20.5-60.0 [facility] Comment on above: Performed By: #### C BC #### [facility] [address] [place] [address] Dr. Brea Causey MANUAL DIFF REQ NO Normal [facility] Comment on above: Performed By: #### C BC #### [facility] [address] [place] [address] Dr. Brea Causey MCH (RBC) [Entitic mass] 29.5 pg Normal 25.9-34.0 [facility] Comment on above: Performed By: #### C BC #### [facility] [address] [address] [address] Brea Causey MCHC (RBC) [Mass/Vol] 33.5 g/dL Normal 29.9-35.2 [facility] Comment on above: Performed By: #### C BC #### [facility] [address] [address] [address] Brea Causey MCV (RBC) [Entitic vol] 88.1 fL Normal 80.0-94.0 [facility] Comment on above: Performed By: #### C BC #### [facility] [address] [address] [address] Brea Causey MONO # 1.5 103/ul Critically high 0.3-0.8 [facility] Comment on above: Performed By: #### C BC #### [facility] [address] [address] [address] Brea Causey Monocytes/100 WBC (Bld) 8.6 % Normal 1.7-12.0 [facility] Comment on above: Performed By: #### C BC #### [facility] [address] [address] [address] Brea Causey NEUT # 14.0 103/ul Critically high 1.4-6.5 [facility] Comment on above: Performed By: #### C BC #### [facility] [address] [address] [address] Brea Causey Neutrophils/100 WBC (Bld) 82.6 % Critically high 43.0-75.0 [facility] Comment on above: Performed By: #### C BC #### [facility] [address] [address] [address] Brea Causey Platelet mean volume (Bld) [Entitic vol] 9.5 fL Normal 9.5-13.5 [facility] Comment on above: Performed By: #### C BC #### [facility] [address] [address] [address] Brea Causye PLT 303 103/ul Normal 150-450 [facility] Comment on above: Performed By: #### C BC #### [facility] [address] [place], [place] [address] Dr. Brea Causey RBC 4.47 106/ul Critically low 4.70-6.10 [facility] Comment on above: Performed By: #### C BC #### [facility] [address] [place], [place] [address] Dr. Brea Causey WBC 17.0 103/ul Critically high 4.0-11.0 [facility] Comment on above: Performed By: #### C BC #### [facility] [id number] Brea Causey Covid-19 PCR ([facility])on SARS-CoV-2 (COVID-19) RNA ISI+probe Ql (Unsp spec) Not detected Normal NOT DETECTED [facility] Comment on above: Result Comment: When diagnostic [...] for this test is supported by the [employer] of Health and Human Service's declaration that [...] DBIL, PHOS, MG #### [facility] [id number] Brea Causey ER URINE PROFILEon 2 Bilirubin Ql (U) Negative Normal NEGATIVE [facility] Comment on above: Performed By: #### U CLINT, CMP, LIPID, DBIL, PHOS, MG #### [facility] [address] [address] [address] Brea Causey Clarity (U) CLEAR Normal CLEAR [facility] Comment on above: Performed By: #### U CLINT, CMP, LIPID, DBIL, PHOS, MG #### [facility] [address] [address] [address] Brea Causey Color (U) YELLOW Normal YELLOW [facility] Comment on above: Performed By: #### U CLINT, CMP, LIPID, DBIL, PHOS, MG #### [facility] [address] [address] [address] Brea GORDON A micrscopic examination will be performed if indicated. Normal [facility] Comment on above: Performed By: #### U CLINT, CMP, LIPID, DBIL, PHOS, MG #### [facility] [address] [place] [address] Dr. Brea Causey Glucose Ql (U) Negative Normal NEGATIVE [facility] Comment on above: Performed By: #### U CLINT, CMP, LIPID, DBIL, PHOS, MG #### [facility] [address] [place] [address] Dr. Brea Causey Hemoglobin Ql (U) Negative Normal NEGATIVE [facility] Comment on above: Performed By: #### U CLINT, CMP, LIPID, DBIL, PHOS, MG #### [facility] [address] [place] [address] Dr. Brea Causey Ketones Ql (U) Negative Normal NEGATIVE The [facility] Comment on above: Performed By: #### U CLINT, CMP, LIPID, DBIL, PHOS, MG #### [facility] [address] [address] [address] Brea Causey LEUKOCYTES Negative Normal NEGATIVE [facility] Comment on above: Performed By: #### U CLINT, CMP, LIPID, DBIL, PHOS, MG #### [facility] [address] [address] [address] Brea Causey Nitrite Ql (U) Negative Normal NEGATIVE [facility] Comment on above: Performed By: #### U CLINT, CMP, LIPID, DBIL, PHOS, MG #### [facility] [address] [address] [address] Brea Causey pH (U) 6.0 [pH] Normal 5-9 [facility] Comment on above: Performed By: #### U CLINT, CMP, LIPID, DBIL, PHOS, MG #### [facility] [address] [place] [address] Dr. Brea Casuey SPEC GRAVITY <=1.005 Abnormal 1.005-<=1.025 [facility] Comment on above: Performed By: #### U CLINT, CMP, LIPID, DBIL, PHOS, MG #### [facility] [address] [place] [address] Dr. Brea Causey UA PROTEIN Negative Normal NEGATIVE/ TRACE [facility] Comment on above: Performed By: #### U CLINT, CMP, LIPID, DBIL, PHOS, MG #### [facility] [address] [place] [address] Dr. Brea Causey UR MICRO IND NOT INDICATED Normal [facility] Comment on above: Performed By: #### U CLINT, CMP, LIPID, DBIL, PHOS, MG #### [facility] [address] [place] [address] Dr. Brea Causey Urobilinogen Qn (U) 0.2 {Sabine'U}/dL Normal 0.2 - 1. 0 [facility] Comment on above: Performed By: #### U CLINT, CMP, LIPID, DBIL, PHOS, MG #### [facility] [address] [place] [address] Dr. Brea Causey GI PANEL (PCR)on 11-14-2021 Adenovirus F 40/41 Not detected Normal NOT DETECTED [facility] Comment on above: Performed By: #### U CLINT, CMP, LIPID, DBIL, PHOS, MG #### [facility] [address] [place] [address] Dr. Brea Causey Astrovirus Not detected Normal NOT DETECTED [facility] Comment on above: Performed By: #### U CLINT, CMP, LIPID, DBIL, PHOS, MG #### [facility] [address] [address] [address] Brea Causey C. Diff toxin A/B Not detected Normal NOT DETECTED [facility] Comment on above: Performed By: #### U CLINT, CMP, LIPID, DBIL, PHOS, MG #### [facility] [address] [address] [address] Brea Causey Campylobacter Not detected Normal NOT DETECTED [facility] Comment on above: Performed By: #### U CLINT, CMP, LIPID, DBIL, PHOS, MG #### [facility] [address] [address] [address] Brea Causey Cryptosporidium Not detected Normal NOT DETECTED [facility] Comment on above: Performed By: #### U CLINT, CMP, LIPID, DBIL, PHOS, MG #### [facility] [address] [address] [address] Brea Causey Cyclos. Cayetanensis Not detected Normal NOT DETECTED [facility] Comment on above: Performed By: #### U CLINT, CMP, LIPID, DBIL, PHOS, MG #### [facility] [address] [address] [address] Brea Causey E. Coli O157 Not Applicable Normal Not Applicable [facility] Comment on above: Performed By: #### U CLINT, CMP, LIPID, DBIL, PHOS, MG #### [facility] [address] [address] [address] Brea Causey E. histolytica Not detected Normal NOT DETECTED [facility] Comment on above: Performed By: #### U CLINT, CMP, LIPID, DBIL, PHOS, MG #### [facility] [address] [address] [address] Brea Causey EAEC Not detected Normal NOT DETECTED [facility] Comment on above: Performed By: #### U CLINT, CMP, LIPID, DBIL, PHOS, MG #### [facility] [address] [address] [address] Brea Causey EIEC Not detected Normal NOT DETECTED [facility] Comment on above: Performed By: #### U CLINT, CMP, LIPID, DBIL, PHOS, MG #### [facility] [address] [address] [address] Brea Causey EPEC Not detected Normal NOT DETECTED [facility] Comment on above: Performed By: #### U CLINT, CMP, LIPID, DBIL, PHOS, MG #### [facility] [address] [address] [address] Brea Causey ETEC Not detected Normal NOT DETECTED [facility] Comment on above: Performed By: #### U CLINT, CMP, LIPID, DBIL, PHOS, MG #### [facility] [address] [address] [address] Brea Colon Not detected Normal NOT DETECTED [facility] Comment on above: Performed By: #### U CLINT, CMP, LIPID, DBIL, PHOS, MG #### [facility] [address] [address] [address] Brea LEZAMA CONTROLS PASSED Normal [facility] Comment on above: Performed By: #### U CLINT, CMP, LIPID, DBIL, PHOS, MG #### [facility] [address] [address] [address] Brea DARDEN [facility] HEADER GI PANEL BACTERIA Normal [facility] Comment on above: Performed By: #### U CLINT, CMP, LIPID, DBIL, PHOS, MG #### [facility] [address] [address] [address] Brea PINTO ECOLI GI PANEL DIARRHEAGENIC E.COLI / SHIGELLA Normal [facility] Comment on above: Performed By: #### U CLINT, CMP, LIPID, DBIL, PHOS, MG #### [facility] [address] [address] [address] Brea PINTO INFO SEE BELOW Normal [facility] Comment on above: Result Comment: EAEC - Enteroaggregative E. Coli EPEC- Enteropathogenic E. Coli ETEC- Enterotoxigenic E. Coli lt/st STEC- Shigella-like toxin-producing E. Coli stx1/stx2 EIEC- Shigella/Enteroinvasive E. Coli Performed By: #### U CLINT, CMP, LIPID, DBIL, PHOS, MG #### [facility] [address] [address] [address] Brea PITNO PARASITES GI PANEL PARASITES Normal [facility] Comment on above: Performed By: #### U CLINT, CMP, LIPID, DBIL, PHOS, MG #### [facility] [address] [address] [address] Brea PINTO VIRUS GI PANEL VIRUSES Normal [facility] Comment on above: Performed By: #### U CLINT, CMP, LIPID, DBIL, PHOS, MG #### [facility] [address] [address] [address] Brea Causey Norovirus GI/GII Not detected Normal NOT DETECTED [facility] Comment on above: Performed By: #### U CLINT, CMP, LIPID, DBIL, PHOS, MG #### [facility] [address] [place] [address] Dr. Brea Causey P. Shigelloides Not detected Normal NOT DETECTED [facility] Comment on above: Performed By: #### U CLINT, CMP, LIPID, DBIL, PHOS, MG #### [facility] [address] [place] [address] Dr. Brea Causey Rotavirus A Not detected Normal NOT DETECTED [facility] Comment on above: Performed By: #### U CLINT, CMP, LIPID, DBIL, PHOS, MG #### [facility] [address] [place] [address] Dr. Brea Causey Salmonella Not detected Normal NOT DETECTED [facility] Comment on above: Performed By: #### U CLINT, CMP, LIPID, DBIL, PHOS, MG #### [facility] [address] [address] [address] Brea Causey Sapovirus Not detected Normal NOT DETECTED [facility] Comment on above: Performed By: #### U CLINT, CMP, LIPID, DBIL, PHOS, MG #### [facility] [address] [address] [address] Brea Causey STEC Not detected Normal NOT DETECTED [facility] Comment on above: Performed By: #### U CLINT, CMP, LIPID, DBIL, PHOS, MG #### [facility] [address] [place] [address] Dr. Brea Causey Vibrio Not detected Normal NOT DETECTED [facility] Comment on above: Performed By: #### U CLINT, CMP, LIPID, DBIL, PHOS, MG #### [facility] [address] [place] [address] Dr. Brea Causey Vibrio Cholera Not detected Normal NOT DETECTED [facility] Comment on above: Performed By: #### U CLINT, CMP, LIPID, DBIL, PHOS, MG #### [facility] [address] [place] [address] Dr. Brea Causey Y. Enterocolitica Not detected Normal NOT DETECTED [facility] Comment on above: Performed By: #### U CLINT, CMP, LIPID, DBIL, PHOS, MG #### [facility] [address] [place] [address] Dr. Brea Causey PROF 14(COMP METB)on 022 Albumin [Mass/Vol] 4.0 g/dL Normal 3.4-5.0 [facility] Comment on above: Performed By: #### C BC #### [facility] [address] [place] [address] Dr. Brea Causey Albumin/Globulin [Mass ratio] 1.3 {ratio} Normal [facility] Comment on above: Performed By: #### C BC #### [facility] [address] [place] [address] Dr. Brea Causey ALP [Catalytic activity/Vol] 142 U/L Critically high 46-116 [facility] Comment on above: Performed By: #### C BC #### [facility] [address] [place] [address] Dr. Brea Causey ALT [Catalytic activity/Vol] 39 U/L Normal 16-63 [facility] Comment on above: Performed By: #### C BC #### [facility] [address] [place] [address] Dr. Brea Causey Anion gap [Moles/Vol] 13.6 mmol/L Normal Th [facility] Comment on above: Performed By: #### C BC #### [facility] [address] [place] [address] Dr. Brea Causey AST [Catalytic activity/Vol] 23 U/L Normal 15-37 [facility] Comment on above: Performed By: #### C BC #### [facility] [address] [place] [address] Dr. Brea Causey Bilirubin [Mass/Vol] 0.4 mg/dL Normal 0.2-1.0 [facility] Comment on above: Performed By: #### C BC #### [facility] [address] [place] [address] Dr. Brea Causey Calcium [Mass/Vol] 8.4 mg/dL Critically low 8.5-10.1 [facility] Comment on above: Performed By: #### C BC #### [facility] [address] [place] [address] Dr. Brea Causey Chloride [Moles/Vol] 97 mmol/L Critically low 98-107 [facility] Comment on above: Performed By: #### C BC #### [facility] [address] [place] [address] Dr. Brea Causey CO2 [Moles/Vol] 26.1 mmol/L Normal 21.0-32.0 [facility] Comment on above: Performed By: #### C BC #### [facility] [address] [place] [address] Dr. Brea Causey Creatinine [Mass/Vol] 1.21 mg/dL Normal 0.70-1.30 [facility] Comment on above: Performed By: #### C BC #### [facility] [address] [place] [address] Dr. Brea Causey EGFR-AF TUNISIAN >60 Normal >=60 [facility] Comment on above: Performed By: #### C BC #### [facility] [address] [place] [address] Dr. Brea Causey EGFR-NON AF TUNISIAN 59 mL/min/1.73m2 Critically low >=60 [facility] Comment on above: Performed By: #### C BC #### [facility] [address] [address] [address] Brea Causey Globulin (S) [Mass/Vol] 3.2 g/dL Normal [facility] Comment on above: Performed By: #### C BC #### [facility] [address] [address] [address] Brea Causey Glucose [Mass/Vol] 227 mg/dL Critically high 74-106 [facility] Comment on above: Performed By: #### C BC #### [facility] [address] [address] [address] Brea Causey Potassium [Moles/Vol] 4.7 mmol/L Normal 3.5-5.1 [facility] Comment on above: Performed By: #### C BC #### [facility] [address] [address] [address] Brea Causey Protein [Mass/Vol] 7.2 g/dL Normal 6.4-8.2 [facility] Comment on above: Performed By: #### C BC #### [facility] [address] [address] [address] Brea Causey Sodium [Moles/Vol] 132 mmol/L Critically low 136-145 Th [facility] Comment on above: Performed By: #### C BC #### [facility] [address] [address] [address] Brea Causey Urea nitrogen [Mass/Vol] 12.0 mg/dL Normal 7.0-18.0 [facility] Comment on above: Performed By: #### C BC #### [facility] [address] [address] [address] Brea Causey Urea nitrogen/Creatinine [Mass ratio] 9.9 mg/mg Normal [facility] Comment on above: Performed By: #### C BC #### [facility] [address] [address] [address] Brea Causey CBC W/DIFFon 10-31-2021 ABS IMM GRANS 0.1 10*3/uL Normal 0.0-0.2 [facility] Comment on above: Performed By: #### 4 5506, 05580, 52375, 65992, 91277, 84763 #### [facility] [address] [place] [address], [facility] ABS NEUTROPHILS 5.9 10*3/uL Normal 1.6-7.6 [facility] Comment on above: Performed By: #### 4 5506, 90339, 24546, 81895, 77733, 73305 #### [facility] [address] [place] [address], [facility] Basophils (Bld) [#/Vol] 0.0 10*3/uL Normal 0.0-0.2 [facility] Comment on above: Performed By: #### 4 5506, 19481, 04493, 87855, 20026, 46373 #### [facility] [address] [place] [address], [facility] Basophils/100 WBC (Bld) 0.3 % Normal 0.0-1.0 [facility] Comment on above: Performed By: #### 4 5506, 09482, 92339, 28522, 85740, 61992 #### [facility] [address] [place] [address], [facility] Eosinophils (Bld) [#/Vol] 0.2 10*3/uL Normal 0.0-0.5 [facility] Comment on above: Performed By: #### 4 5506, 61457, 05115, 08646, 07225, 09501 #### [facility] [address] [place] [address], [place] Eosinophils/100 WBC (Bld) 2.3 % Normal 0.0-6.0 [facility] Comment on above: Performed By: #### 4 5506, 91075, 43511, 02582, 66643, 77053 #### [facility] [address] Erythrocyte distribution width (RBC) [Ratio] 13.4 % Normal 11.5-15.0 [facility] Comment on above: Performed By: #### 4 5506, 47213, 37840, 28457, 53008, 19668 #### [facility] [address] [place] [address], [facility] Hematocrit (Bld) [Volume fraction] 36.1 % Low 39.0-50.0 [facility] Comment on above: Performed By: #### 4 5506, 31145, 96964, 41027, 02523, 59703 #### [facility] [address] Hemoglobin (Bld) [Mass/Vol] 11.9 g/dL Low 13.0-17.0 [facility] Comment on above: Performed By: #### 4 5506, 47177, 62837, 48971, 63611, 58972 #### [facility] [address] IMMATURE GRANS 0.7 % Normal 0.0-1.0 [facility] Comment on above: Performed By: #### 4 5506, 72069, 27887, 84053, 17108, 82722 #### [facility] [address] [place] [address], [facility] Lymphocytes (Bld) [#/Vol] 0.9 10*3/uL Low 1.2-4.0 [facility] Comment on above: Performed By: #### 4 5506, 21938, 31713, 19156, 02035, 38047 #### [facility] [address] [place] [address], [facility] Lymphocytes/100 WBC (Bld) 12.1 % Low 20.0-45.0 [facility] Comment on above: Performed By: #### 4 5506, 77193, 26128, 11127, 20218, 28521 #### [facility] [address] [place] [address], [facility] MCH (RBC) [Entitic mass] 29.3 pg Normal 27.0-33.0 [facility] Comment on above: Performed By: #### 4 5506, 72929, 74164, 33464, 24706, 84714 #### [facility] [address] [place] [address], [facility] MCHC (RBC) [Mass/Vol] 33.0 g/dL Normal 32.0-35.0 [facility] Comment on above: Performed By: #### 4 5506, 54113, 65047, 30506, 27873, 39920 #### [facility] [address] [place] [address], [facility] MCV (RBC) [Entitic vol] 88.9 fL Normal 82.0-98.0 [facility] Comment on above: Performed By: #### 4 5506, 05976, 27087, 90781, 61541, 53625 #### [facility] [address] [place] [address], [facility] Monocytes (Bld) [#/Vol] 0.6 10*3/uL Normal 0.1-1.0 [facility] Comment on above: Performed By: #### 4 5506, 80387, 19360, 99623, 30028, 83371 #### [facility] [address] [facility] [address] MONOS 8.3 % Normal 5.0-12.0 [facility] Comment on above: Performed By: #### 4 5506, 40431, 63762, 28924, 40674, 09317 #### [facility] [address] [facility] [place] [address], [facility] Neutrophils/100 WBC (Bld) 76.3 % High 40.0-72.0 [facility] Comment on above: Performed By: #### 4 5506, 50227, 45123, 53195, 24366, 47639 #### [facility] [address] [facility] Nucleated RBC/100 WBC (Bld) [Ratio] 0 % Normal 0-0 [facility] Comment on above: Performed By: #### 4 5506, 75641, 68291, 05153, 89003, 16480 #### [facility] [address] [facility] [place] [address], [facility] PLAT CNT 260 10*3/uL Normal 150-400 [facility] Comment on above: Performed By: #### 4 5506, 27103, 62094, 06744, 40322, 00951 #### [facility] [address] [facility]. [address] RBC (Bld) [#/Vol] 4.06 10*6/uL Low 4.20-5.70 [facility] Comment on above: Performed By: #### 4 5506, 81827, 38440, 47050, 27087, 57632 #### [facility] [address] [facility]. [address] WBC (Bld) [#/Vol] 7.68 10*3/uL Normal 4.00-10.60 [facility] Comment on above: Performed By: #### 4 5506, 88104, 57444, 94873, 62742, 36498 #### [facility] [address] [facility]. [address] COMP METABOLIC PANELon 10-31 Albumin [Mass/Vol] 4.4 g/dL Normal 3.5-5.7 [facility] Comment on above: Performed By: #### 4 5506, 62587, 88064, 83934, 96497, 94379 #### [facility] [address] ALKALINE PHOSPH 132 IU/L High 34-104 [facility] Comment on above: Performed By: #### 4 5506, 66552, 68396, 74653, 69640, 53573 #### [facility] [address] [place] [address], [place] ALT [Catalytic activity/Vol] 26 U/L Normal 7-52 [facility] Comment on above: Performed By: #### 4 5506, 93570, 37041, 19184, 21054, 03061 #### [facility] [address] [place] [address], [place] AST [Catalytic activity/Vol] 17 U/L Normal 13-39 [facility] Comment on above: Performed By: #### 4 5506, 41902, 27841, 69127, 40113, 19967 #### [facility] [address] [place] [address], [place] Bilirubin [Mass/Vol] 0.4 mg/dL Normal 0.3-1.0 [facility] Comment on above: Performed By: #### 4 5506, 90088, 02735, 15043, 02930, 94386 #### [facility] [address] [place] [address], [place] Calcium [Mass/Vol] 8.6 mg/dL Normal 8.6-10.3 [facility] Comment on above: Performed By: #### 4 5506, 10131, 83564, 22424, 35386, 89065 #### [facility] [address] [place] [address], [place] Chloride [Moles/Vol] 97 mmol/L Low 98-107 [facility] Comment on above: Performed By: #### 4 5506, 18320, 92814, 87295, 58105, 63089 #### [facility] [address] [place] [address], [place] CO2 [Moles/Vol] 26 mmol/L Normal 21-31 [facility] Comment on above: Performed By: #### 4 5506, 44135, 14600, 35036, 76707, 81363 #### [facility] [address] [place] [address], [place] Creatinine [Mass/Vol] 1.04 mg/dL Normal 0.70-1.30 [facility] Comment on above: Performed By: #### 4 5506, 29118, 60119, 10514, 17656, 73473 #### [facility] [address] [place] [address], [place] GFR/1.73 sq M.predicted among blacks MDRD (S/P/Bld) [Vol rate/Area] mL/min/{1.73_m2} Normal >60 [facility] Comment on above: Performed By: #### 4 5506, 39242, 41663, 48916, 61745, 44227 #### [facility] [address] [place] [address], [place] GFR/1.73 sq M.predicted among non-blacks MDRD (S/P/Bld) [Vol rate/Area] mL/min/{1.73_m2} Normal >60 [facility] Comment on above: Performed By: #### 4 5506, 54149, 21478, 08886, 67701, 28172 #### [facility] [address] [place] [address], [place] Glucose [Mass/Vol] 158 mg/dL High 70-100 [facility] Comment on above: Performed By: #### 4 5506, 76910, 17685, 99496, 68424, 68185 #### [facility] [address] [place] [address], [place] Potassium [Moles/Vol] 4.4 mmol/L Normal 3.5-5.1 [facility] Comment on above: Performed By: #### 4 5506, 93572, 56427, 37018, 35464, 38392 #### [facility] [address] [place] [address], [place] Protein [Mass/Vol] 6.6 g/dL Normal 6.0-8.3 [facility] Comment on above: Performed By: #### 4 5506, 21464, 29144, 18045, 22889, 53459 #### [facility] [address] [place] [address], [facility] Sodium [Moles/Vol] 131 mmol/L Low 136-145 [facility] Comment on above: Performed By: #### 4 5506, 32052, 64002, 60711, 34883, 83195 #### [facility] [address] [place] [address], [facility] Urea nitrogen [Mass/Vol] 15 mg/dL Normal 7-25 [facility] Comment on above: Performed By: #### 4 5506, 10732, 83960, 88634, 53383, 87114 #### [facility] [address] [place] [address], [facility] DIRECT BILIon 10-31-2021 Bilirubin.direct [Mass/Vol] 0.1 mg/dL Normal 0.0-0.2 [facility] Comment on above: Performed By: #### 4 5506, 31540, 94719, 56363, 99785, 21536 #### [facility] [address] [place] [address], [place] LIPID PROFILEon 10-31-2021 Cholesterol [Mass/Vol] 70 mg/dL Low 120-200 [facility] Comment on above: Result Comment: CHOL ESTEROL REFERENCE RANGE: 20 YEARS AND OLDER CARDIOVASCULAR RISK Less than 200 mg/dl Low Risk 200 to 239 mg/dl Borderline Risk 240 mg/dl and greater High Risk Performed By: #### 4 5506, 09231, 96895, 17453, 11090, 43317 #### [facility] [address] [place] [address], [place] Cholesterol in HDL [Mass/Vol] 35 mg/dL Normal 23-92 [facility] Comment on above: Result Comment: Slig ht variation in normal range could be due to gender and/or age. HDL CHOLESTEROL REFERENCE RANGE: 20 years and older Cardiovascular Risk > or =60 mg/dL Desirable 40 TO 59 mg/dL Low Risk <40 mg/dL High Risk Performed By: #### 4 5506, 59217, 18725, 28679, 91600, 48780 #### [facility] [address] [place] [address], [place] Cholesterol in LDL [Mass/Vol] 20 mg/dL Normal 0-130 [facility] Comment on above: Result Comment: LDL IS A CALCULATION LDL IS ONLY VALID IF THE TRIG IS LESS THAN 400. Performed By: #### 4 5506, 72932, 12523, 03779, 33589, 95462 #### [facility] [address] [place] [address], [facility] Cholesterol.total/Cho lesterol in HDL [Mass ratio] 2.0 {ratio} Normal .0-4.5 [facility] Comment on above: Performed By: #### 4 5506, 33403, 22202, 47354, 14754, 56165 #### [facility] [address] [place] [address], [facility] NON-HDL CHOLESTEROL 35 mg/dL Normal [facility] Comment on above: Performed By: #### 4 5506, 53714, 27655, 55440, 62317, 11200 #### [facility] [address] [place] [address], [place] Triglyceride [Mass/Vol] 73 mg/dL Normal 40-149 [facility] Comment on above: Result Comment: TRIG LYCERIDE REFERENCE RANGE: 20 YEARS AND OLDER CARDIOVASCULAR RISK LESS THAN 150 mg/dl LOW RISK 150 TO 199 mg/dl BORDERLINE RISK 200 mg/dl AND GREATER HIGH RISK Performed By: #### 4 5506, 46007, 69486, 40378, 23261, 47301 #### [facility] [address] [place] [address], [place] VLDL CHOL 15 mg/dL Normal 0-40 [facility] Comment on above: Performed By: #### 4 5506, 30616, 41777, 04089, 47522, 36882 #### [facility] [address] [place] [address], [facility] MAGNESIUM BLOODon 10-31-2021 Magnesium [Mass/Vol] 1.1 mg/dL Critically low 1.9-2.7 [facility] Comment on above: Performed By: #### 4 5506, 37279, 94238, 34103, 83310, 11841 #### [facility] [address] [place] [address], [facility] PHOSPHORUS BLOODon Phosphate [Mass/Vol] 3.0 mg/dL Normal 2.5-5.0 [facility] Comment on above: Performed By: #### 4 5506, 55721, 43024, 26386, 51354, 41771 #### [facility] [address] [place] [address], [facility] PROSPERAon 10-31-2021 PROSPERA KIT Results to be mailed directly to physician's office by reference lab. Normal [facility] Comment on above: Result Comment: Test performed by [email or web address] [place] [address] Specimen collected for transplant patient and [facility] per Dr instructions. No charge. No result expected. For billing and tracking purposes only. Performed By: #### 4 5506, 12393, 99385, 59812, 16458, 52145 #### [facility] [address] [place] [address], [facility] RESULT Results to be mailed directly to physician's office by reference lab. Normal [facility] Comment on above: Performed By: #### 4 5506, 73106, 99450, 60395, 50853, 25748 #### [facility] [address] [place] [address], [facility] TACROLIMUSon 10-31-2021 Tacrolimus (Bld) [Mass/Vol] 7.6 ng/mL Normal 5.0-20.0 [facility] Comment on above: Result Comment: The [facility] Tacrolimus assay is a delayed one-step immunoassay for the quantitative determination of tacrolimus in human whole blood using the chemiluminescent microparticle immunoassay (CMIA) technology with flexible assay protocols, referred to as Chemiflex. Performed By: #### 4 5506, 46133, 27407, 50316, 72499, 30087 #### [facility] [address] URIC ACID BLOODon 10-31-2021 Urate [Mass/Vol] 7.8 mg/dL High 4.4-7.6 [facility] Comment on above: Performed By: #### 4 5506, 56144, 44113, 86418, 91462, 02172 #### [facility] [address] NM PARATHYROID WITH SPECT AN D CTon 07-24-2021 NM PARATHYROID WITH SPECT AND CT [facility] Department of Radiology [address] [place] [address] Patient Name: ROGER SUAREZ : 1950 Sex: M Age: Race: White Pt. Location: Patient Status: D Ordered Date: 06/26/2021 8:40:00 AM Completed Date: 07/24/2021 01:21 PM Requesting Provider: NAGA BOSCH Attending Provider: NAGA BOSCH Report Copy To: JERICHO MCCARTHY Signs & Symptoms: E21.3 Hyperparathyroidism, unspecified I10 History: [place] NPC Req. per [facility] A/B for CPT 07873 *SLA Comments: , , , Ordering Provider - DINKAR KARLUK MD , Exam: NM PARATHYROID WITH SPECT [...] SPECT. Electronically signed: Nan Earl. Transcribed by: [email or web address], User Resident: Electronically Signed by: NAN EARL @ 07/27/2021 12:13 PM Normal [facility] Comment on above: Order Comment: , , = ========= , Ordering Cirilo BOSCH MD , CBC W/DIFFon 06-22-2021 ABS IMM GRANS 0.1 10*3/uL Normal 0.0-0.2 [facility] Comment on above: Performed By: #### 4 5506, 61814, 17699, 66112, 35898, 30009 #### [facility] [address] [facility] [place] [address], [facility] ABS NEUTROPHILS 4.7 10*3/uL Normal 1.6-7.6 [facility] Comment on above: Performed By: #### 4 5506, 46733, 98285, 25411, 65992, 88222 #### [facility] [address] [facility] [place] [address], [facility] Basophils (Bld) [#/Vol] 0.0 10*3/uL Normal 0.0-0.2 [facility] Comment on above: Performed By: #### 4 5506, 68352, 23620, 26882, 13985, 52774 #### [facility] [address] [facility] [place] [place] [address], [facility] Basophils/100 WBC (Bld) 0.6 % Normal 0.0-1.0 [facility] Comment on above: Performed By: #### 4 5506, 52448, 91424, 28267, 56360, 69749 #### [facility] [address] [facility] [place] [place] [address], [facility] Eosinophils (Bld) [#/Vol] 0.2 10*3/uL Normal 0.0-0.5 [facility] Comment on above: Performed By: #### 4 5506, 33949, 54729, 09244, 81908, 53781 #### [facility] [address] [facility] [place] [place] [address], [place] Eosinophils/100 WBC (Bld) 2.5 % Normal 0.0-6.0 [facility] Comment on above: Performed By: #### 4 5506, 82164, 41455, 00857, 91784, 17034 #### [facility] [address] Erythrocyte distribution width (RBC) [Ratio] 13.6 % Normal 11.5-15.0 [facility] Comment on above: Performed By: #### 4 5506, 95059, 89913, 33534, 60902, 09952 #### [facility] [address] [facility]. [address] Hematocrit (Bld) [Volume fraction] 36.3 % Low 39.0-50.0 [facility] Comment on above: Performed By: #### 4 5506, 96278, 36823, 42310, 27627, 67346 #### [facility] [address] Hemoglobin (Bld) [Mass/Vol] 11.7 g/dL Low 13.0-17.0 [facility] Comment on above: Performed By: #### 4 5506, 02238, 19285, 09057, 81020, 66695 #### [facility] [address] IMMATURE GRANS 0.8 % Normal 0.0-1.0 [facility] Comment on above: Performed By: #### 4 5506, 83551, 90351, 03733, 29709, 06969 #### [facility] [address] Lymphocytes (Bld) [#/Vol] 0.9 10*3/uL Low 1.2-4.0 [facility] Comment on above: Performed By: #### 4 5506, 80103, 28522, 83368, 52366, 81357 #### [facility] [address] [facility] [address], [facility] Lymphocytes/100 WBC (Bld) 13.6 % Low 20.0-45.0 [facility] Comment on above: Performed By: #### 4 5506, 72334, 06661, 27575, 18393, 64638 #### [facility] [address] [place] [address], [facility] MCH (RBC) [Entitic mass] 28.6 pg Normal 27.0-33.0 [facility] Comment on above: Performed By: #### 4 5506, 30404, 14175, 76783, 91410, 19691 #### [facility] [address] [place] [address], [facility] MCHC (RBC) [Mass/Vol] 32.2 g/dL Normal 32.0-35.0 [facility] Comment on above: Performed By: #### 4 5506, 58159, 63904, 88333, 24967, 10990 #### [facility] [address] [place] [address], [facility] MCV (RBC) [Entitic vol] 88.8 fL Normal 82.0-98.0 [facility] Comment on above: Performed By: #### 4 5506, 22673, 99013, 43710, 76447, 39735 #### [facility] [address] [facility] [place] [address], [facility] Monocytes (Bld) [#/Vol] 0.6 10*3/uL Normal 0.1-1.0 [facility] Comment on above: Performed By: #### 4 5506, 67364, 11724, 84322, 12263, 72231 #### [facility] [address] [facility] MONOS 9.6 % Normal 5.0-12.0 [facility] Comment on above: Performed By: #### 4 5506, 84807, 87206, 40841, 76097, 84072 #### [facility] [address] [place] [address], [facility] Neutrophils/100 WBC (Bld) 72.9 % High 40.0-72.0 [facility] Comment on above: Performed By: #### 4 5506, 38976, 78121, 31934, 41368, 17887 #### [facility] [address] [facility] Nucleated RBC/100 WBC (Bld) [Ratio] 0 % Normal 0-0 [facility] Comment on above: Performed By: #### 4 5506, 97674, 66164, 24616, 36034, 46363 #### [facility] [address] [facility] [place] [place] [address], [facility] PLAT CNT 263 10*3/uL Normal 150-400 [facility] Comment on above: Performed By: #### 4 5506, 73235, 38204, 03944, 74002, 24257 #### [facility] [address] [facility]. [address] RBC (Bld) [#/Vol] 4.09 10*6/uL Low 4.20-5.70 [facility] Comment on above: Performed By: #### 4 5506, 31556, 10937, 09637, 68080, 26151 #### [facility] [address] [facility]. [address] WBC (Bld) [#/Vol] 6.45 10*3/uL Normal 4.00-10.60 [facility] Comment on above: Performed By: #### 4 5506, 56250, 83661, 04642, 29760, 76146 #### [facility] [address] [facility] [address] COMP METABOLIC PANELon 06-22 Albumin [Mass/Vol] 4.3 g/dL Normal 3.5-5.7 [facility] Comment on above: Performed By: #### 4 5506, 11744, 97555, 86935, 92640, 85086 #### [facility] [address] [place] [address], [facility] ALKALINE PHOSPH 143 IU/L High 34-104 [facility] Comment on above: Performed By: #### 4 5506, 46077, 96250, 99779, 10957, 22593 #### [facility] [address] [place] [address], [place] ALT [Catalytic activity/Vol] 18 U/L Normal 7-52 [facility] Comment on above: Performed By: #### 4 5506, 03434, 94471, 88033, 24296, 45711 #### [facility] [address] [place] [address], [place] AST [Catalytic activity/Vol] 15 U/L Normal 13-39 [facility] Comment on above: Performed By: #### 4 5506, 27317, 01346, 48452, 47499, 16433 #### [facility] [address] [place] [address], [place] Bilirubin [Mass/Vol] 0.3 mg/dL Normal 0.3-1.0 [facility] Comment on above: Performed By: #### 4 5506, 79369, 24886, 35409, 86546, 90816 #### [facility] [address] [place] [address], [place] Calcium [Mass/Vol] 10.6 mg/dL High 8.6-10.3 [facility] Comment on above: Performed By: #### 4 5506, 71471, 72702, 88173, 83357, 89343 #### [facility] [address] [place] [address], [place] Chloride [Moles/Vol] 102 mmol/L Normal 98-107 [facility] Comment on above: Performed By: #### 4 5506, 29222, 11594, 53542, 62770, 71105 #### [facility] [address] [place] [address], [place] CO2 [Moles/Vol] 24 mmol/L Normal 21-31 [facility] Comment on above: Performed By: #### 4 5506, 28581, 13985, 02776, 18932, 18701 #### [facility] [address] [place] [address], [place] Creatinine [Mass/Vol] 1.04 mg/dL Normal 0.70-1.30 [facility] Comment on above: Performed By: #### 4 5506, 60070, 44617, 39300, 50257, 75430 #### [facility] [address] [place] [address], [place] GFR/1.73 sq M.predicted among blacks MDRD (S/P/Bld) [Vol rate/Area] mL/min/{1.73_m2} Normal >60 [facility] Comment on above: Performed By: #### 4 5506, 46250, 11564, 72000, 87705, 19396 #### [facility] [address] [place] [address], [place] GFR/1.73 sq M.predicted among non-blacks MDRD (S/P/Bld) [Vol rate/Area] mL/min/{1.73_m2} Normal >60 [facility] Comment on above: Performed By: #### 4 5506, 01254, 40948, 65995, 45144, 09268 #### [facility] [address] [place] [address], [place] Glucose [Mass/Vol] 167 mg/dL High 70-100 [facility] Comment on above: Performed By: #### 4 5506, 14212, 00666, 85835, 78578, 02066 #### [facility] [address] [place] [address], [place] Potassium [Moles/Vol] 5.3 mmol/L High 3.5-5.1 [facility] Comment on above: Performed By: #### 4 5506, 57747, 03685, 77417, 32716, 24835 #### [facility] [address] [place] [address], [facility] Protein [Mass/Vol] 6.5 g/dL Normal 6.0-8.3 [facility] Comment on above: Performed By: #### 4 5506, 41203, 55272, 17723, 81737, 65585 #### [facility] [address] [place] [address], [facility] Sodium [Moles/Vol] 134 mmol/L Low 136-145 [facility] Comment on above: Performed By: #### 4 5506, 68946, 42269, 17535, 26840, 27156 #### [facility] [address] [place] [address], [facility] Urea nitrogen [Mass/Vol] 11 mg/dL Normal 7-25 [facility] Comment on above: Performed By: #### 4 5506, 32329, 20906, 41886, 72084, 73491 #### [facility] [address] [place] [address], [facility] DIRECT BILIon 06-22-2021 Bilirubin.direct [Mass/Vol] 0.1 mg/dL Normal 0.0-0.2 [facility] Comment on above: Performed By: #### 4 5506, 11253, 83275, 80448, 99077, 29505 #### [facility] [address] [place] [address], [facility] LIPID PROFILEon 06-22-2021 Cholesterol [Mass/Vol] 77 mg/dL Low 120-200 [facility] Comment on above: Result Comment: CHOL ESTEROL REFERENCE RANGE: 20 YEARS AND OLDER CARDIOVASCULAR RISK Less than 200 mg/dl Low Risk 200 to 239 mg/dl Borderline Risk 240 mg/dl and greater High Risk Performed By: #### 4 5506, 88768, 76648, 78357, 72413, 33723 #### [facility] [address] [place] [address], [facility] Cholesterol in HDL [Mass/Vol] 40 mg/dL Normal 23-92 [facility] Comment on above: Result Comment: Slig ht variation in normal range could be due to gender and/or age. HDL CHOLESTEROL REFERENCE RANGE: 20 years and older Cardiovascular Risk > or =60 mg/dL Desirable 40 TO 59 mg/dL Low Risk <40 mg/dL High Risk Performed By: #### 4 5506, 09615, 28810, 82751, 03602, 19383 #### [facility] [address] [place] [address], [place] Cholesterol in LDL [Mass/Vol] 24 mg/dL Normal 0-130 [facility] Comment on above: Result Comment: LDL IS A CALCULATION LDL IS ONLY VALID IF THE TRIG IS LESS THAN 400. Performed By: #### 4 5506, 04018, 98223, 33638, 44527, 25390 #### [facility] [address] [place] [address], [facility] Cholesterol.total/Cho lesterol in HDL [Mass ratio] 1.9 {ratio} Normal .0-4.5 [facility] Comment on above: Performed By: #### 4 5506, 00665, 21418, 92220, 20913, 06837 #### [facility] [address] [place] [address], [facility] NON-HDL CHOLESTEROL 37 mg/dL Normal [facility] Comment on above: Performed By: #### 4 5506, 43106, 40891, 70467, 54420, 94041 #### [facility] [address] [place] [address], [place] Triglyceride [Mass/Vol] 63 mg/dL Normal 40-149 [facility] Comment on above: Result Comment: TRIG LYCERIDE REFERENCE RANGE: 20 YEARS AND OLDER CARDIOVASCULAR RISK LESS THAN 150 mg/dl LOW RISK 150 TO 199 mg/dl BORDERLINE RISK 200 mg/dl AND GREATER HIGH RISK Performed By: #### 4 5506, 29938, 70691, 60760, 03197, 22544 #### [facility] [address] [place] [address], [place] VLDL CHOL 13 mg/dL Normal 0-40 [facility] Comment on above: Performed By: #### 4 5506, 77601, 13155, 17474, 71979, 77789 #### [facility] [address] [place] [address], [facility] MAGNESIUM BLOODon 06-22-2021 Magnesium [Mass/Vol] 1.4 mg/dL Low 1.9-2.7 [facility] Comment on above: Performed By: #### 4 5506, 10239, 72207, 96523, 82212, 50062 #### [facility] [address] [place] [address], [facility] PHOSPHORUS BLOODon Phosphate [Mass/Vol] 2.5 mg/dL Normal 2.5-5.0 [facility] Comment on above: Performed By: #### 4 5506, 85151, 73389, 03895, 42615, 17319 #### [facility] [address] [place] [address], [facility] PTH INTACTon 06-22-2021 PTH INTACT 155 pg/mL High 12-88 [facility] Comment on above: Performed By: #### 4 5506, 14720, 17784, 05943, 12612, 81117 #### [facility] [address] [place] [address], [facility] TACROLIMUSon 06-22-2021 Tacrolimus (Bld) [Mass/Vol] 21.0 ng/mL High 5.0-20.0 [facility] Comment on above: Result Comment: The [facility] Tacrolimus assay is a delayed one-step immunoassay for the quantitative determination of tacrolimus in human whole blood using the chemiluminescent microparticle immunoassay (CMIA) technology with flexible assay protocols, referred to as Chemiflex. Performed By: #### 4 5506, 92204, 96797, 59963, 92151, 91948 #### [facility] [address] [place] [address], [facility] URIC ACID BLOODon 06-22-2021 Urate [Mass/Vol] 7.9 mg/dL High 4.4-7.6 [facility] Comment on above: Performed By: #### 4 5506, 54632, 18894, 21498, 85858, 35217 #### [facility] [address] CBC W/DIFFon 04-19-2021 ABS IMM GRANS 0.1 10*3/uL Normal 0.0-0.2 [facility] Comment on above: Performed By: #### 4 5506, 61398, 49211, 60538, 20405, 01521 #### [facility] [address] ABS NEUTROPHILS 5.2 10*3/uL Normal 1.6-7.6 [facility] Comment on above: Performed By: #### 4 5506, 42607, 52387, 14650, 62373, 20864 #### [facility] [address] [place] [address], [facility] Basophils (Bld) [#/Vol] 0.0 10*3/uL Normal 0.0-0.2 [facility] Comment on above: Performed By: #### 4 5506, 52526, 82418, 30229, 79663, 19178 #### [facility] [address] [place] [address], [facility] Basophils/100 WBC (Bld) 0.4 % Normal 0.0-1.0 [facility] Comment on above: Performed By: #### 4 5506, 71559, 55929, 62176, 70699, 44322 #### [facility] [address] [place] [address], [facility] Eosinophils (Bld) [#/Vol] 0.2 10*3/uL Normal 0.0-0.5 [facility] Comment on above: Performed By: #### 4 5506, 24215, 38749, 30709, 84994, 73805 #### [facility] [address] [facility] [address] Eosinophils/100 WBC (Bld) 2.9 % Normal 0.0-6.0 [facility] Comment on above: Performed By: #### 4 5506, 83957, 84582, 59623, 53185, 33528 #### [facility] [address] [facility] [address] Erythrocyte distribution width (RBC) [Ratio] 13.3 % Normal 11.5-15.0 [facility] Comment on above: Performed By: #### 4 5506, 76824, 25187, 20224, 29578, 60540 #### [facility] [address] [facility] [address] Hematocrit (Bld) [Volume fraction] 37.1 % Low 39.0-50.0 [facility] Comment on above: Performed By: #### 4 5506, 49060, 86854, 78690, 19487, 05316 #### [facility] 3000 [facility]. [address] Hemoglobin (Bld) [Mass/Vol] 11.7 g/dL Low 13.0-17.0 [facility] Comment on above: Performed By: #### 4 5506, 16068, 08406, 92788, 08709, 57282 #### [facility] [address] [facility]. [address] IMMATURE GRANS 0.9 % Normal 0.0-1.0 [facility] Comment on above: Performed By: #### 4 5506, 23956, 78271, 97978, 28887, 66399 #### [facility] [address] [facility] [address], [facility] Lymphocytes (Bld) [#/Vol] 0.9 10*3/uL Low 1.2-4.0 [facility] Comment on above: Performed By: #### 4 5506, 49654, 70944, 56051, 21152, 97206 #### [facility] [address] [place] [address], [facility] Lymphocytes/100 WBC (Bld) 12.5 % Low 20.0-45.0 [facility] Comment on above: Performed By: #### 4 5506, 57078, 76792, 01117, 05054, 22068 #### [facility] [address] [place] [address], [facility] MCH (RBC) [Entitic mass] 29.0 pg Normal 27.0-33.0 [facility] Comment on above: Performed By: #### 4 5506, 72010, 68178, 46545, 15660, 55651 #### [facility] [address] [facility] [place] [address], [facility] MCHC (RBC) [Mass/Vol] 31.5 g/dL Low 32.0-35.0 [facility] Comment on above: Performed By: #### 4 5506, 61488, 52421, 33360, 55696, 78655 #### [facility] [address] [facility] [place] [address], [facility] MCV (RBC) [Entitic vol] 92.1 fL Normal 82.0-98.0 [facility] Comment on above: Performed By: #### 4 5506, 66606, 92591, 01272, 49945, 08442 #### [facility] [address] [facility] [place] [address], [facility] Monocytes (Bld) [#/Vol] 0.6 10*3/uL Normal 0.1-1.0 [facility] Comment on above: Performed By: #### 4 5506, 56992, 60333, 65438, 44183, 61365 #### [facility] [address] [place] [address], [facility] MONOS 8.6 % Normal 5.0-12.0 [facility] Comment on above: Performed By: #### 4 5506, 61365, 05356, 37999, 45313, 83474 #### [facility] [address] [place] [address], [facility] Neutrophils/100 WBC (Bld) 74.7 % High 40.0-72.0 [facility] Comment on above: Performed By: #### 4 5506, 77269, 15796, 70933, 85942, 40126 #### [facility] [address] [place] [address], [facility] Nucleated RBC/100 WBC (Bld) [Ratio] 0 % Normal 0-0 [facility] Comment on above: Performed By: #### 4 5506, 90058, 89720, 64144, 66394, 01638 #### [facility] [address] [place] [address], [facility] PLAT CNT 290 10*3/uL Normal 150-400 [facility] Comment on above: Performed By: #### 4 5506, 97002, 01333, 13847, 21345, 33733 #### [facility] [address] [place] [address], [facility] RBC (Bld) [#/Vol] 4.03 10*6/uL Low 4.20-5.70 [facility] Comment on above: Performed By: #### 4 5506, 64243, 33605, 98904, 60197, 05860 #### [facility] [address] [place] [address], [place] WBC (Bld) [#/Vol] 6.96 10*3/uL Normal 4.00-10.60 [facility] Comment on above: Performed By: #### 4 5506, 08229, 71935, 52283, 47573, 65701 #### [facility] [address] [place] [address], [place] COMP METABOLIC PANELon 04-19 Albumin [Mass/Vol] 4.3 g/dL Normal 3.5-5.7 [facility] Comment on above: Performed By: #### 4 5506, 75643, 42938, 74675, 64768, 65138 #### [facility] [address] [place] [address], [place] ALKALINE PHOSPH 137 IU/L High 34-104 [facility] Comment on above: Performed By: #### 4 5506, 97733, 50007, 68922, 36615, 91170 #### [facility] [address] [place] [address], [place] ALT [Catalytic activity/Vol] 17 U/L Normal 7-52 [facility] Comment on above: Performed By: #### 4 5506, 81476, 10724, 34593, 92965, 29087 #### [facility] [address] [place] [address], [place] AST [Catalytic activity/Vol] 16 U/L Normal 13-39 [facility] Comment on above: Performed By: #### 4 5506, 10108, 70306, 89300, 10510, 56175 #### [facility] [address] [place] [address], [place] Bilirubin [Mass/Vol] 0.4 mg/dL Normal 0.3-1.0 [facility] Comment on above: Performed By: #### 4 5506, 61733, 52015, 91639, 62070, 19233 #### [facility] [address] [place] [address], [place] Calcium [Mass/Vol] 10.5 mg/dL High 8.6-10.3 [facility] Comment on above: Performed By: #### 4 5506, 90991, 48764, 88324, 61744, 93512 #### [facility] [address] [place] [address], [place] Chloride [Moles/Vol] 99 mmol/L Normal 98-107 [facility] Comment on above: Performed By: #### 4 5506, 16086, 54471, 90254, 45304, 79198 #### [facility] [address] [place] [address], [facility] CO2 [Moles/Vol] 27 mmol/L Normal 21-31 [facility] Comment on above: Performed By: #### 4 5506, 67433, 97588, 71093, 96569, 84299 #### [facility] [address] [place] [address], [facility] Creatinine [Mass/Vol] 1.04 mg/dL Normal 0.70-1.30 [facility] Comment on above: Performed By: #### 4 5506, 52521, 71098, 00707, 19126, 96483 #### [facility] [address] [place] [address], [facility] GFR/1.73 sq M.predicted among blacks MDRD (S/P/Bld) [Vol rate/Area] mL/min/{1.73_m2} Normal >60 [facility] Comment on above: Performed By: #### 4 5506, 48563, 83726, 21954, 24681, 54550 #### [facility] [address] [place] [address], [place] GFR/1.73 sq M.predicted among non-blacks MDRD (S/P/Bld) [Vol rate/Area] mL/min/{1.73_m2} Normal >60 [facility] Comment on above: Performed By: #### 4 5506, 26971, 94012, 49257, 04239, 84577 #### [facility] [address] [place] [address], [place] Glucose [Mass/Vol] 139 mg/dL High 70-100 [facility] Comment on above: Performed By: #### 4 5506, 47126, 07636, 59312, 04681, 34281 #### [facility] [address] [place] [address], [facility] Potassium [Moles/Vol] 5.1 mmol/L Normal 3.5-5.1 [facility] Comment on above: Performed By: #### 4 5506, 59010, 86478, 11226, 20907, 29978 #### [facility] [address] [place] [address], [facility] Protein [Mass/Vol] 6.5 g/dL Normal 6.0-8.3 [facility] Comment on above: Performed By: #### 4 5506, 97656, 11971, 43078, 09453, 04576 #### [facility] [address] [place] [address], [facility] Sodium [Moles/Vol] 133 mmol/L Low 136-145 [facility] Comment on above: Performed By: #### 4 5506, 35585, 84534, 07785, 40580, 93157 #### [facility] [address] [place] [address], [facility] Urea nitrogen [Mass/Vol] 11 mg/dL Normal 7-25 [facility] Comment on above: Performed By: #### 4 5506, 27949, 33758, 27461, 19083, 70606 #### [facility] [address] [place] [address], [facility] DIRECT BILIon 04-19-2021 Bilirubin.direct [Mass/Vol] 0.1 mg/dL Normal 0.0-0.2 [facility] Comment on above: Performed By: #### 4 5506, 37748, 04409, 14996, 69077, 84917 #### [facility] [address] [place] [address], [facility] LIPID PROFILEon 04-19-2021 Cholesterol [Mass/Vol] 82 mg/dL Low 120-200 [facility] Comment on above: Result Comment: CHOL ESTEROL REFERENCE RANGE: 20 YEARS AND OLDER CARDIOVASCULAR RISK Less than 200 mg/dl Low Risk 200 to 239 mg/dl Borderline Risk 240 mg/dl and greater High Risk Performed By: #### 4 5506, 53953, 82954, 41102, 89522, 44209 #### [facility] [address] [place] [address], [place] Cholesterol in HDL [Mass/Vol] 38 mg/dL Normal 23-92 [facility] Comment on above: Result Comment: Slig ht variation in normal range could be due to gender and/or age. HDL CHOLESTEROL REFERENCE RANGE: 20 years and older Cardiovascular Risk > or =60 mg/dL Desirable 40 TO 59 mg/dL Low Risk <40 mg/dL High Risk Performed By: #### 4 5506, 57680, 31045, 50944, 56265, 44693 #### [facility] [address] [place] [address], [place] Cholesterol in LDL [Mass/Vol] 25 mg/dL Normal 0-130 [facility] Comment on above: Result Comment: LDL IS A CALCULATION LDL IS ONLY VALID IF THE TRIG IS LESS THAN 400. Performed By: #### 4 5506, 08864, 95940, 73352, 63096, 40193 #### [facility] [address] [place] [address], [place] Cholesterol.total/Cho lesterol in HDL [Mass ratio] 2.2 {ratio} Normal .0-4.5 [facility] Comment on above: Performed By: #### 4 5506, 73646, 69084, 34909, 53007, 67883 #### [facility] [address] [place] [address], [place] NON-HDL CHOLESTEROL 44 mg/dL Normal [facility] Comment on above: Performed By: #### 4 5506, 92618, 91272, 12732, 41074, 71429 #### [facility] [address] [place] [address], [place] Triglyceride [Mass/Vol] 93 mg/dL Normal 40-149 [facility] Comment on above: Result Comment: TRIG LYCERIDE REFERENCE RANGE: 20 YEARS AND OLDER CARDIOVASCULAR RISK LESS THAN 150 mg/dl LOW RISK 150 TO 199 mg/dl BORDERLINE RISK 200 mg/dl AND GREATER HIGH RISK Performed By: #### 4 5506, 40393, 95343, 17218, 38394, 16509 #### [facility] [address] [place] [address], [facility] VLDL CHOL 19 mg/dL Normal 0-40 [facility] Comment on above: Performed By: #### 4 5506, 13405, 41307, 02505, 68179, 91085 #### [facility] [address] [place] [address], [facility] MAGNESIUM BLOODon 04-19-2021 Magnesium [Mass/Vol] 1.8 mg/dL Low 1.9-2.7 [facility] Comment on above: Performed By: #### 4 5506, 13871, 89429, 79179, 27230, 49714 #### [facility] [address] [place] [address], [facility] PHOSPHORUS BLOODon Phosphate [Mass/Vol] 3.0 mg/dL Normal 2.5-5.0 [facility] Comment on above: Performed By: #### 4 5506, 62748, 98339, 44749, 41400, 29239 #### [facility] [address] PROSPERAon 04-19-2021 PROSPERA KIT Results to be mailed directly to physician's office by reference lab. Normal [facility] Comment on above: Result Comment: Test performed by [id number] [place] [address] No result expected. For billing and tracking purposes only. Specimen collected for transplant patient and sent to requesting hospital per Dr instructions. No charge. Performed By: #### 4 5506, 13620, 29202, 03138, 34594, 42870 #### [facility] [address] RESULT Results to be mailed directly to physician's office by reference lab. Normal [facility] Comment on above: Performed By: #### 4 5506, 86470, 43094, 66860, 88925, 89158 #### [facility] [address] TACROLIMUSon 04-19-2021 Tacrolimus (Bld) [Mass/Vol] 7.7 ng/mL Normal 5.0-20.0 [facility] Comment on above: Result Comment: The [facility] Tacrolimus assay is a delayed one-step immunoassay for the quantitative determination of tacrolimus in human whole blood using the chemiluminescent microparticle immunoassay (CMIA) technology with flexible assay protocols, referred to as Chemiflex. Performed By: #### 4 5506, 14916, 73023, 71723, 98544, 90818 #### [facility] [address] URIC ACID BLOODon 04-19-2021 Urate [Mass/Vol] 7.9 mg/dL High 4.4-7.6 [facility] Comment on above: Performed By: #### 4 5506, 66117, 56731, 95538, 81132, 69682 #### [address] CBC W/DIFFon 04-11-2021 ABS IMM GRANS 0.0 10*3/uL Normal 0.0-0.2 [facility] Comment on above: Performed By: #### 4 5506, 01390, 07838, 84868, 77691, 29091 #### [facility] [address] ABS NEUTROPHILS 4.5 10*3/uL Normal 1.6-7.6 [facility] Comment on above: Performed By: #### 4 5506, 50603, 21831, 56214, 09870, 17459 #### [facility] [address] [place] [address], [facility] Basophils (Bld) [#/Vol] 0.0 10*3/uL Normal 0.0-0.2 [facility] Comment on above: Performed By: #### 4 5506, 63456, 98199, 40329, 25319, 01052 #### [facility] [address] [place] [address], [facility] Basophils/100 WBC (Bld) 0.5 % Normal 0.0-1.0 [facility] Comment on above: Performed By: #### 4 5506, 28752, 52836, 00623, 99630, 95258 #### [facility] [address] [place] [address], [facility] Eosinophils (Bld) [#/Vol] 0.2 10*3/uL Normal 0.0-0.5 [facility] Comment on above: Performed By: #### 4 5506, 28828, 97932, 43683, 97568, 72332 #### [facility] [address] [place] [address], [facility] Eosinophils/100 WBC (Bld) 3.1 % Normal 0.0-6.0 [facility] Comment on above: Performed By: #### 4 5506, 22458, 64359, 71107, 01075, 31772 #### [facility] [address] [place] [address], [facility] Erythrocyte distribution width (RBC) [Ratio] 13.4 % Normal 11.5-15.0 [facility] Comment on above: Performed By: #### 4 5506, 87076, 41621, 40594, 42377, 42276 #### [facility] [address] [place] [address], [facility] Hematocrit (Bld) [Volume fraction] 35.5 % Low 39.0-50.0 [facility] Comment on above: Performed By: #### 4 5506, 17862, 37209, 16559, 06052, 25540 #### [facility] [address] [facility] [place] [address], [facility] Hemoglobin (Bld) [Mass/Vol] 11.7 g/dL Low 13.0-17.0 [facility] Comment on above: Performed By: #### 4 5506, 18617, 40118, 25490, 89003, 94179 #### [facility] [address] IMMATURE GRANS 0.6 % Normal 0.0-1.0 [facility] Comment on above: Performed By: #### 4 5506, 44344, 35047, 11375, 95824, 65505 #### [facility] [address] [facility] [address] Lymphocytes (Bld) [#/Vol] 0.8 10*3/uL Low 1.2-4.0 [facility] Comment on above: Performed By: #### 4 5506, 84718, 36070, 61495, 05041, 47027 #### [facility] [address] [facility]. [address] Lymphocytes/100 WBC (Bld) 12.9 % Low 20.0-45.0 [facility] Comment on above: Performed By: #### 4 5506, 91123, 51511, 56548, 62688, 95778 #### [facility] [address] [facility]. [address] MCH (RBC) [Entitic mass] 29.2 pg Normal 27.0-33.0 [facility] Comment on above: Performed By: #### 4 5506, 64848, 87086, 39946, 81702, 04459 #### [facility] [address] [facility] [place] [address], [facility] MCHC (RBC) [Mass/Vol] 33.0 g/dL Normal 32.0-35.0 [facility] Comment on above: Performed By: #### 4 5506, 37319, 37357, 08735, 14949, 06035 #### [facility] [address] [facility] [address], [facility] MCV (RBC) [Entitic vol] 88.5 fL Normal 82.0-98.0 [facility] Comment on above: Performed By: #### 4 5506, 25889, 00601, 06170, 82366, 96320 #### [facility] [address] Monocytes (Bld) [#/Vol] 0.6 10*3/uL Normal 0.1-1.0 [facility] Comment on above: Performed By: #### 4 5506, 43218, 91026, 08034, 45014, 28319 #### [facility] [address] [facility]. [address] MONOS 10.3 % Normal 5.0-12.0 [facility] Comment on above: Performed By: #### 4 5506, 91002, 50540, 61608, 52450, 41178 #### [facility] [address] [facility]. [address] Neutrophils/100 WBC (Bld) 72.6 % High 40.0-72.0 [facility] Comment on above: Performed By: #### 4 5506, 26576, 80286, 46406, 47080, 68598 #### [facility] [address] [facility]. [address] Nucleated RBC/100 WBC (Bld) [Ratio] 0 % Normal 0-0 [facility] Comment on above: Performed By: #### 4 5506, 76668, 46484, 19054, 67056, 27859 #### [facility] [address] [place] [address], [facility] PLAT CNT 272 10*3/uL Normal 150-400 [facility] Comment on above: Performed By: #### 4 5506, 06552, 44837, 36518, 26035, 95356 #### [facility] [address] [place] [address], [facility] RBC (Bld) [#/Vol] 4.01 10*6/uL Low 4.20-5.70 [facility] Comment on above: Performed By: #### 4 5506, 32421, 35161, 20384, 06512, 91179 #### [facility] [address] [place] [address], [facility] WBC (Bld) [#/Vol] 6.22 10*3/uL Normal 4.00-10.60 [facility] Comment on above: Performed By: #### 4 5506, 23899, 87107, 91761, 26133, 17897 #### [facility] [address] [place] [address], [facility] COMP METABOLIC PANELon 04-11 Albumin [Mass/Vol] 4.3 g/dL Normal 3.5-5.7 [facility] Comment on above: Performed By: #### 4 5506, 02957, 34904, 19502, 94328, 03204 #### [facility] [address] [place] [address], [facility] ALKALINE PHOSPH 115 IU/L High 34-104 [facility] Comment on above: Performed By: #### 4 5506, 74400, 34648, 03954, 05426, 48219 #### [facility] [address] [place] [address], [place] ALT [Catalytic activity/Vol] 16 U/L Normal 7-52 [facility] Comment on above: Performed By: #### 4 5506, 50920, 51619, 28366, 84565, 48247 #### [facility] [address] [place] [address], [facility] AST [Catalytic activity/Vol] 15 U/L Normal 13-39 [facility] Comment on above: Performed By: #### 4 5506, 89270, 13560, 50335, 02453, 82469 #### [facility] [address] [place] [address], [place] Bilirubin [Mass/Vol] 0.6 mg/dL Normal 0.3-1.0 [facility] Comment on above: Performed By: #### 4 5506, 04752, 83574, 01031, 61132, 95157 #### [facility] [address] [place] [address], [place] Calcium [Mass/Vol] 10.3 mg/dL Normal 8.6-10.3 [facility] Comment on above: Performed By: #### 4 5506, 05123, 12144, 64908, 56102, 43701 #### [facility] [address] [place] [address], [place] Chloride [Moles/Vol] 97 mmol/L Low 98-107 [facility] Comment on above: Performed By: #### 4 5506, 23135, 60087, 83826, 04782, 32962 #### [facility] [address] [place] [address], [place] CO2 [Moles/Vol] 26 mmol/L Normal 21-31 [facility] Comment on above: Performed By: #### 4 5506, 78079, 54966, 94117, 80720, 54642 #### [facility] [address] [place] [address], [place] Creatinine [Mass/Vol] 0.93 mg/dL Normal 0.70-1.30 [facility] Comment on above: Performed By: #### 4 5506, 75174, 74511, 02771, 43215, 34482 #### [facility] [address] [place] [address], [place] GFR/1.73 sq M.predicted among blacks MDRD (S/P/Bld) [Vol rate/Area] mL/min/{1.73_m2} Normal >60 [facility] Comment on above: Performed By: #### 4 5506, 98889, 73452, 23645, 72575, 09004 #### [facility] [address] [place] [address], [place] GFR/1.73 sq M.predicted among non-blacks MDRD (S/P/Bld) [Vol rate/Area] mL/min/{1.73_m2} Normal >60 [facility] Comment on above: Performed By: #### 4 5506, 33110, 45748, 99604, 45084, 60438 #### [facility] [address] [place] [address], [place] Glucose [Mass/Vol] 136 mg/dL High 70-100 [facility] Comment on above: Performed By: #### 4 5506, 84903, 15485, 94915, 06847, 58783 #### [facility] [address] [place] [address], [place] Potassium [Moles/Vol] 5.2 mmol/L High 3.5-5.1 [facility] Comment on above: Performed By: #### 4 5506, 15204, 64494, 12745, 98209, 73851 #### [facility] [address] [place] [address], [place] Protein [Mass/Vol] 6.7 g/dL Normal 6.0-8.3 [facility] Comment on above: Performed By: #### 4 5506, 15281, 50996, 77931, 98726, 03849 #### [facility] [address] [place] [address], [place] Sodium [Moles/Vol] 129 mmol/L Low 136-145 [facility] Comment on above: Performed By: #### 4 5506, 16065, 13802, 89211, 26403, 11847 #### [facility] [address] [place] [address], [facility] Urea nitrogen [Mass/Vol] 10 mg/dL Normal 7-25 [facility] Comment on above: Performed By: #### 4 5506, 52121, 44016, 99506, 75761, 82296 #### [facility] [address] [place] [address], [facility] DIRECT BILIon 04-11-2021 Bilirubin.direct [Mass/Vol] 0.2 mg/dL Normal 0.0-0.2 [facility] Comment on above: Performed By: #### 4 5506, 31058, 71557, 37747, 89583, 88815 #### [facility] [address] [place] [address], [facility] LIPID PROFILEon 04-11-2021 Cholesterol [Mass/Vol] 84 mg/dL Low 120-200 [facility] Comment on above: Result Comment: CHOL ESTEROL REFERENCE RANGE: 20 YEARS AND OLDER CARDIOVASCULAR RISK Less than 200 mg/dl Low Risk 200 to 239 mg/dl Borderline Risk 240 mg/dl and greater High Risk Performed By: #### [id number], [id number], 46413, 35736, [id number], [id number] #### [facility] [address] [place] [address], [facility] Cholesterol in HDL [Mass/Vol] 41 mg/dL Normal 23-92 [facility] Comment on above: Result Comment: Slig ht variation in normal range could be due to gender and/or age. HDL CHOLESTEROL REFERENCE RANGE: 20 years and older Cardiovascular Risk > or =60 mg/dL Desirable 40 TO 59 mg/dL Low Risk <40 mg/dL High Risk Performed By: #### [id number], [id number], 43429, 18857, 24708, 45424 #### [facility] [address] [place] [address], [place] Cholesterol in LDL [Mass/Vol] 34 mg/dL Normal 0-130 [facility] Comment on above: Result Comment: LDL IS A CALCULATION LDL IS ONLY VALID IF THE TRIG IS LESS THAN 400. Performed By: #### 4 [id number], 24002, 14736, 54502, 03225, 25924 #### [facility] [address] Cholesterol.total/Cho lesterol in HDL [Mass ratio] 2.0 {ratio} Normal .0-4.5 [facility] Comment on above: Performed By: #### 4 5506, 67828, 80813, 54148, 22860, 75362 #### [facility] [address] [facility] [address] NON-HDL CHOLESTEROL 43 mg/dL Normal [facility] Comment on above: Performed By: #### 4 5506, 97915, 19688, 57211, 86620, 09531 #### [facility] [address] [facility] [address] Triglyceride [Mass/Vol] 47 mg/dL Normal 40-149 [facility] Comment on above: Result Comment: TRIG LYCERIDE REFERENCE RANGE: 20 YEARS AND OLDER CARDIOVASCULAR RISK LESS THAN 150 mg/dl LOW RISK 150 TO 199 mg/dl BORDERLINE RISK 200 mg/dl AND GREATER HIGH RISK Performed By: #### 4 5506, 58651, 64335, 30060, 86340, 68424 #### [facility] [address] [facility] [address] VLDL CHOL 9 mg/dL Normal 0-40 [facility] Comment on above: Performed By: #### 4 5506, 23959, 32843, 76148, 85312, 19465 #### [facility] [address] MAGNESIUM BLOODon 04-11-2021 Magnesium [Mass/Vol] 1.3 mg/dL Low 1.9-2.7 [facility] Comment on above: Performed By: #### 4 5506, 56796, 16762, 21000, 37501, 43974 #### [facility] [address] [facility] [place] [address], [facility] PHOSPHORUS BLOODon Phosphate [Mass/Vol] 2.6 mg/dL Normal 2.5-5.0 [facility] Comment on above: Performed By: #### 4 5506, 05166, 05575, 62871, 89168, 35159 #### [facility] [address] [facility] [place] [address], [facility] TACROLIMUSon 04-11-2021 Tacrolimus (Bld) [Mass/Vol] 8.3 ng/mL Normal 5.0-20.0 [facility] Comment on above: Result Comment: The [facility] Tacrolimus assay is a delayed one-step immunoassay for the quantitative determination of tacrolimus in human whole blood using the chemiluminescent microparticle immunoassay (CMIA) technology with flexible assay protocols, referred to as Chemiflex. Performed By: #### 4 5506, 25356, 63331, 66637, 19221, 04507 #### [facility] [address] [facility] [place] [place] [address], [facility] URIC ACID BLOODon 04-11-2021 Urate [Mass/Vol] 8.4 mg/dL High 4.4-7.6 [facility] Comment on above: Performed By: #### 4 5506, 65995, 27474, 96856, 31701, 11070 #### [facility] [address] BK VIRUS QUANTITATION FOR PL ASMAon 02-16-2021 BKV Plasma Quantitation by PCR Not detected Normal [facility] Comment on above: Result Comment: Meth od: BK virus was measured by quantitative polymerase chain reaction using a fluorescent hydrolysis probe targeting the polyomavirus BK SOLAR SITE ASSESSMENT SPECIALIST-1 gene. The lower limit of quantitation of the assay is 500 copies of BK genome per milliliter of plasma or urine, and any detectable BK DNA below that level is reported as: Detected, <500 copies/ml. Serial BK virus measurement can be used to monitor disease activity. (Reference: Katina ramirezl. J CLIN MICRO 2004; 42:6219-9965). This test was developed and its performance characteristics determined by the [facility]. It has not been approved by the US Food and Drug Administration. However, such approval is not required for clinical implementation, and test results have been shown to be clinically useful. This laboratory is CAP accredited and CLIA certified to perform high complexity testing. Performed By: #### 4 5506, 52577, 77668, 90348, 12340, 42383 #### [facility] [address] BKV Plasma Quantitation Log by PCR Not detected Normal [facility] Comment on above: Performed By: #### 4 5506, 25299, 83991, 01085, 10419, 97685 #### [facility] [address] CBC W/DIFFon 02-16-2021 ABS IMM GRANS 0.1 10*3/uL Normal 0.0-0.2 [facility] Comment on above: Performed By: #### 4 5506, 18730, 53152, 89205, 04868, 17563 #### [facility] [address] ABS NEUTROPHILS 5.8 10*3/uL Normal 1.6-7.6 [facility] Comment on above: Performed By: #### 4 5506, 00383, 83924, 51134, 03078, 90245 #### [facility] [address] Basophils (Bld) [#/Vol] 0.0 10*3/uL Normal 0.0-0.2 [facility] Comment on above: Performed By: #### 4 5506, 04345, 66166, 63816, 37968, 86832 #### [facility] [address] Basophils/100 WBC (Bld) 0.4 % Normal 0.0-1.0 [facility] Comment on above: Performed By: #### 4 5506, 88361, 37439, 39314, 20028, 95036 #### [facility] [address] Eosinophils (Bld) [#/Vol] 0.3 10*3/uL Normal 0.0-0.5 [facility] Comment on above: Performed By: #### 4 5506, 01819, 69615, 26063, 45242, 23849 #### [facility] [address] Eosinophils/100 WBC (Bld) 3.5 % Normal 0.0-6.0 [facility] Comment on above: Performed By: #### 4 5506, 10519, 43974, 43516, 17116, 59354 #### [facility] [address] [facility] [address] Erythrocyte distribution width (RBC) [Ratio] 13.6 % Normal 11.5-15.0 [facility] Comment on above: Performed By: #### 4 5506, 68896, 11762, 09333, 09919, 80097 #### [facility] [address] [facility] [address] Hematocrit (Bld) [Volume fraction] 34.1 % Low 39.0-50.0 [facility] Comment on above: Performed By: #### 4 5506, 44997, 81709, 37265, 06071, 57359 #### [facility] [address] Hemoglobin (Bld) [Mass/Vol] 11.6 g/dL Low 13.0-17.0 [facility] Comment on above: Performed By: #### 4 5506, 40704, 32413, 29222, 54848, 78733 #### [facility] [address] IMMATURE GRANS 0.8 % Normal 0.0-1.0 [facility] Comment on above: Performed By: #### 4 5506, 61985, 74555, 68293, 41983, 98521 #### [facility] [address] [facility] [address] Lymphocytes (Bld) [#/Vol] 0.7 10*3/uL Low 1.2-4.0 [facility] Comment on above: Performed By: #### 4 5506, 30837, 65678, 40294, 04000, 55863 #### [facility] [address] [facility] [address] Lymphocytes/100 WBC (Bld) 9.2 % Low 20.0-45.0 [facility] Comment on above: Performed By: #### 4 5506, 44896, 54122, 63044, 20048, 01946 #### [facility] [address] [facility] [place] [address], [facility] MCH (RBC) [Entitic mass] 29.5 pg Normal 27.0-33.0 [facility] Comment on above: Performed By: #### 4 5506, 09084, 94612, 90078, 42162, 19420 #### [facility] [address] [facility] [place] [address], [facility] MCHC (RBC) [Mass/Vol] 34.0 g/dL Normal 32.0-35.0 [facility] Comment on above: Performed By: #### 4 5506, 49905, 62272, 71505, 68395, 97554 #### [facility] [address] [facility] [place] [address], [facility] MCV (RBC) [Entitic vol] 86.8 fL Normal 82.0-98.0 [facility] Comment on above: Performed By: #### 4 5506, 35795, 87123, 19881, 28826, 20814 #### [facility] [address] [facility] [place] [address], [facility] Monocytes (Bld) [#/Vol] 0.8 10*3/uL Normal 0.1-1.0 [facility] Comment on above: Performed By: #### 4 5506, 90959, 24939, 72803, 82460, 32626 #### [facility] [address] [place] [address], [facility] MONOS 10.3 % Normal 5.0-12.0 [facility] Comment on above: Performed By: #### 4 5506, 80342, 78065, 06563, 93513, 87930 #### [facility] [address] [place] [id number], [facility] Neutrophils/100 WBC (Bld) 75.8 % High 40.0-72.0 [facility] Comment on above: Performed By: #### 4 5506, 19512, 78295, 27328, 68613, 13089 #### [facility] [address] [place] [id number], [facility] Nucleated RBC/100 WBC (Bld) [Ratio] 0 % Normal 0-0 [facility] Comment on above: Performed By: #### 4 5506, 41922, 96705, 52630, 82000, 47101 #### [facility] [address] [place] [id number], [facility] PLAT CNT 256 10*3/uL Normal 150-400 [facility] Comment on above: Performed By: #### 4 5506, 68085, 99099, 82971, 63649, 79143 #### [facility] [address] [place] [address], [facility] RBC (Bld) [#/Vol] 3.93 10*6/uL Low 4.20-5.70 [facility] Comment on above: Performed By: #### 4 5506, 58895, 28646, 89195, 04276, 43472 #### [facility] [address] WBC (Bld) [#/Vol] 7.65 10*3/uL Normal 4.00-10.60 [facility] Comment on above: Performed By: #### 4 5506, 94041, 84345, 05794, 86502, 50830 #### [facility] [address] [facility] [address] COMP METABOLIC PANELon 02-16 Albumin [Mass/Vol] 4.6 g/dL Normal 3.5-5.7 [facility] Comment on above: Performed By: #### 0 0121, 51158, 67649, 20136, 77138, 91485, 54614, 83170 #### [facility] [address] [facility]. [address] ALKALINE PHOSPH 136 IU/L High 34-104 [facility] Comment on above: Performed By: #### 0 0121, 35743, 58454, 43148, 64962, 54307, 35654, 63494 #### [facility] [address] [facility] [address] ALT [Catalytic activity/Vol] 22 U/L Normal 7-52 [facility] Comment on above: Performed By: #### 0 0121, 49627, 85622, 55417, 59290, 26726, 41587, 39705 #### [facility] [address] [facility] [address], [facility] AST [Catalytic activity/Vol] 18 U/L Normal 13-39 [facility] Comment on above: Performed By: #### 0 0121, 47953, 43172, 04116, 74227, 62432, 37749, 77243 #### [facility] [address] [facility] [place] [address], [facility] Bilirubin [Mass/Vol] 0.5 mg/dL Normal 0.3-1.0 [facility] Comment on above: Performed By: #### 0 0121, 60605, 59719, 14317, 83668, 01809, 41745, 71073 #### [facility] [address] [place] [address], [facility] Calcium [Mass/Vol] 10.5 mg/dL High 8.6-10.3 [facility] Comment on above: Performed By: #### 0 0121, 08764, 08749, 85767, 26670, 91270, 65622, 41417 #### [facility] [address] [place] [address], [facility] Chloride [Moles/Vol] 94 mmol/L Low 98-107 [facility] Comment on above: Performed By: #### 0 0121, 51828, 86712, 74507, 51505, 61507, 81638, 53625 #### [facility] [address] [place] [address], [facility] CO2 [Moles/Vol] 28 mmol/L Normal 21-31 [facility] Comment on above: Performed By: #### 0 0121, 70529, 60457, 55561, 17683, 20919, 23318, 17272 #### [facility] [address] [place] [address], [facility] Creatinine [Mass/Vol] 0.93 mg/dL Normal 0.70-1.30 [facility] Comment on above: Performed By: #### 0 0121, 43318, 02026, 08303, 65210, 86520, 52182, 90709 #### [facility] [address] [place] [address], [place] GFR/1.73 sq M.predicted among blacks MDRD (S/P/Bld) [Vol rate/Area] mL/min/{1.73_m2} Normal >60 [facility] Comment on above: Performed By: #### 0 0121, 22149, 91711, 56036, 03906, 82595, 29435, 01160 #### [facility] [address] [place] [address], [place] GFR/1.73 sq M.predicted among non-blacks MDRD (S/P/Bld) [Vol rate/Area] mL/min/{1.73_m2} Normal >60 [facility] Comment on above: Performed By: #### 0 0121, 30095, 82752, 31055, 15602, 28297, 44341, 56473 #### [facility] [address] [place] [address], [place] Glucose [Mass/Vol] 147 mg/dL High 70-100 [facility] Comment on above: Performed By: #### 0 0121, 79354, 54978, 12294, 11408, 70706, 20437, 62566 #### [facility] [address] [place] [address], [place] Potassium [Moles/Vol] 4.6 mmol/L Normal 3.5-5.1 [facility] Comment on above: Performed By: #### 0 0121, 56603, 82637, 45993, 51898, 01494, 80626, 09376 #### [facility] [address] [place] [address], [place] Protein [Mass/Vol] 7.2 g/dL Normal 6.0-8.3 [facility] Comment on above: Performed By: #### 0 0121, 98498, 38408, 73404, 28051, 64534, 14919, 13794 #### [facility] [address] [place] [address], [place] Sodium [Moles/Vol] 129 mmol/L Low 136-145 [facility] Comment on above: Performed By: #### 0 0121, 80374, 81233, 79911, 23153, 36281, 95083, 97518 #### [facility] [address] [place] [address], [place] Urea nitrogen [Mass/Vol] 15 mg/dL Normal 7-25 [facility] Comment on above: Performed By: #### 0 0121, 51243, 26487, 99915, 40413, 70103, 85199, 09103 #### [facility] [address] [place] [address], [facility] DIRECT BILIon 02-16-2021 Bilirubin.direct [Mass/Vol] 0.2 mg/dL Normal 0.0-0.2 [facility] Comment on above: Performed By: #### 4 5506, 06012, 57837, 36020, 56827, 76005 #### [facility] [address] [place] [address], [facility] HEMOGLOBIN A1Con 02-16-2021 Glucose [Moles/Vol] 154 mmol/L Normal [facility] Comment on above: Performed By: #### 4 5506, 34384, 73511, 44923, 65104, 57134 #### [facility] [address] HbA1c (Bld) [Mass fraction] 7.0 % High 4.0-6.0 [facility] Comment on above: Performed By: #### 4 5506, 99346, 95232, 69899, 48789, 34402 #### [facility] [address] LIPID PROFILEon 02-16-2021 Cholesterol [Mass/Vol] 78 mg/dL Low 120-200 [facility] Comment on above: Result Comment: CHOL ESTEROL REFERENCE RANGE: 20 YEARS AND OLDER CARDIOVASCULAR RISK Less than 200 mg/dl Low Risk 200 to 239 mg/dl Borderline Risk 240 mg/dl and greater High Risk Performed By: #### 0 0121, 05005, 78249, 34063, 34551, 73399, 60685, 59083 #### [facility] [address] [place] [address], [facility] Cholesterol in HDL [Mass/Vol] 41 mg/dL Normal 23-92 [facility] Comment on above: Result Comment: Slig ht variation in normal range could be due to gender and/or age. HDL CHOLESTEROL REFERENCE RANGE: 20 years and older Cardiovascular Risk > or =60 mg/dL Desirable 40 TO 59 mg/dL Low Risk <40 mg/dL High Risk Performed By: #### 0 0121, 62982, 90398, 40951, 33817, 03814, 89230, 37421 #### [facility] [address] [place] [address], [place] Cholesterol in LDL [Mass/Vol] 28 mg/dL Normal 0-130 [facility] Comment on above: Result Comment: LDL IS A CALCULATION LDL IS ONLY VALID IF THE TRIG IS LESS THAN 400. Performed By: #### 0 0121, 08705, 34193, 85034, 44042, 50029, 72984, 76350 #### [facility] [address] [place] [address], [facility] Cholesterol.total/Cho lesterol in HDL [Mass ratio] 1.9 {ratio} Normal .0-4.5 [facility] Comment on above: Performed By: #### 0 0121, 75310, 38802, 05857, 20378, 87407, 46449, 32843 #### [facility] [address] [place] [address], [facility] NON-HDL CHOLESTEROL 37 mg/dL Normal [facility] Comment on above: Performed By: #### 0 0121, 62576, 78386, 21633, 83922, 65587, 86781, 88975 #### [facility] [address] [place] [address], [place] Triglyceride [Mass/Vol] 44 mg/dL Normal 40-149 [facility] Comment on above: Result Comment: TRIG LYCERIDE REFERENCE RANGE: 20 YEARS AND OLDER CARDIOVASCULAR RISK LESS THAN 150 mg/dl LOW RISK 150 TO 199 mg/dl BORDERLINE RISK 200 mg/dl AND GREATER HIGH RISK Performed By: #### 0 0121, 44563, 42808, 93162, 73424, 93650, 88700, 67054 #### [facility] [address] VLDL CHOL 9 mg/dL Normal 0-40 [facility] Comment on above: Performed By: #### 0 0121, 90931, 46155, 50425, 43746, 45782, 38035, 30559 #### [facility] [address] [place] [address], [facility] MAGNESIUM BLOODon 02-16-2021 Magnesium [Mass/Vol] 1.5 mg/dL Low 1.9-2.7 [facility] Comment on above: Performed By: #### 4 5506, 39701, 69552, 54652, 41383, 48257 #### [facility] [address] [facility] [address] PHOSPHORUS BLOODon Phosphate [Mass/Vol] 2.4 mg/dL Low 2.5-5.0 [facility] Comment on above: Performed By: #### 0 0121, 26224, 97345, 36187, 86793, 98518, 93642, 42065 #### [facility] [address] [facility] [address] PROSPERAon 02-16-2021 PROSPERA KIT Results to be mailed directly to physician's office by reference lab. Normal [facility] Comment on above: Result Comment: Test performed by [id number] [place] [address] No result expected. For billing and tracking purposes only. Specimen collected for transplant patient and sent to requesting hospital per Dr instructions. No charge. Performed By: #### 4 5506, 99150, 01440, 43857, 92061, 77792 #### [facility] [address] [facility]. [address] RESULT Results to be mailed directly to physician's office by reference lab. Normal [facility] Comment on above: Performed By: #### 4 5506, 39307, 48912, 52529, 59841, 34528 #### [facility] [address] [place] [address], [facility] PTH INTACTon 02-16-2021 PTH INTACT 123 pg/mL High 12-88 [facility] Comment on above: Performed By: #### 4 5506, 88043, 85680, 20692, 22951, 70759 #### [facility] [address] [facility] [place] [place] [address], [facility] SINGLE ANTIGEN CLASS 1on METHOD Class I [...] to frequency. Performed By: #### 4 5506, 61829, 11827, 84018, 93889, 62031 #### [facility] [address] [facility] [address], [facility] SINGLE ANTIGEN CLASS 2on COMMENTS Normal The [...] Antigen Microbeads Performed By: #### 4 5506, 09331, 26753, 92466, 89840, 44578 #### [facility] [address] [place] [address], [facility] Result Comment: No C lass I donor [...] to frequency. Performed By: #### 4 5506, 96702, 78567, 86018, 18955, 53192 #### [facility] [address] [facility]. [address] SIGNED BY Normal [facility] [...] not probable, due to frequency. Result Comment: Jsoe A Lara MS,CHT(IRINEO),MT(ASCP) Senior Storage Administrator, Transplant Immunology Performed By: #### 4 5506, 78872, 70636, 81510, 91366, 67605 #### [facility] [address] [facility]. [address] TACROLIMUSon 02-16-2021 Tacrolimus (Bld) [Mass/Vol] 7.0 ng/mL Normal 5.0-20.0 [facility] Comment on above: Result Comment: The [employer] Tacrolimus assay is a delayed one-step immunoassay for the quantitative determination of tacrolimus in human whole blood using the chemiluminescent microparticle immunoassay (CMIA) technology with flexible assay protocols, referred to as Chemiflex. Performed By: #### 4 5506, 98289, 90812, 45227, 61136, 45310 #### [facility] [address] [place] [address], [facility] TESTOSTERONE, FREE+SHBG+TOTA L ILon 02-16-2021 [place] Normal [facility] Comment on above: Result Comment: Test Performed by [employer] [address] [place], [place] [id number] - Released 02/16/2021 18:49 SEX HORM BIND [...] on above: Performed By: #### 0 0121, 09776, 13145, 80807, 79056, 14901, 79723, 42425 #### [facility] [address] [facility] [address], [facility] VITAMIN D 25-HYDROXYon 02-16 VITAMIN D 25-OH 35.1 ng/mL Normal 30.0-80.0 [facility] Comment on above: Result Comment: >80. 0 Toxicity possible Performed By: #### 4 5506, 96723, 52493, 67080, 62439, 71871 #### [facility] [address] [facility]. [address] Vital Signs Date Time Vital Sign Value Performing Clinician Facility 02-16-2024 08:040 Body height 167.6 cm Jericho Mccarthy MD Work Phone: [facility] 02-16-2024 08:040 Body mass index (BMI) [Ratio] 24.37 kg/m2 Jericho Mccarthy MD Work Phone: [facility] 02-16-2024 08:19040 Body temperature 97.5 [degF] Jericho Mccarthy MD Work Phone: [facility] 02-16-2024 08:19-0400 Body weight 68.49 kg Jericho Mccarthy MD Work Phone: [facility] 02-16-2024 08:19-0400 Diastolic blood pressure 60 mm[Hg] Jericho Mccarthy MD Work Phone: [facility] 02-16-2024 08:19-0400 Heart rate 57 /min Jericho Mccarthy MD Work Phone: [facility] 02-16-2024 08:19-0400 Respiratory rate 18 /min Jericho Mccarthy MD Work Phone: [facility] 02-16-2024 08:19-0400 SaO2% (BldA) [Mass fraction] 98 % Jericho Mccarthy MD Work Phone: [facility] 02-16-2024 08:19-0400 Systolic blood pressure 120 mm[Hg] Jericho Mccarthy MD Work Phone: [facility] 03-05-2022 09:30-0400 Diastolic blood pressure 74 mm[Hg] MD Jericho Mccarthy Work Phone: [facility] 03-05-2022 09:30-0400 Heart rate 58 /min MD Jericho Mccarthy Work Phone: [facility] 03-05-2022 09:30-0400 Respiratory rate 18 /min MD Jericho Mccarthy Work Phone: [facility] 03-05-2022 09:30-0400 SaO2% (BldA) [Mass fraction] 99 % MD Jericho Mccarthy Work Phone: [facility] 03-05-2022 09:30-0400 Systolic blood pressure 133 mm[Hg] MD Jericho Mccarthy Work Phone: [facility] 03-05-2022 07:01-0400 Body height 167.64 cm MD Jericho Mccarthy Work Phone: [facility] 03-05-2022 07:01-0400 Body temperature 97.9 [degF] MD Jericho Mccarthy Work Phone: [facility] 03-05-2022 07:01-0400 Body weight 74.84 kg MD Jericho Mccarthy Work Phone: [facility] 01-21-2022 10:30-0400 Body height 167.64 cm Tj Marxack Other [facility] Other 01-21-2022 10:30-0400 Body mass index (BMI) [Ratio] 26.47 kg/m2 Tj Wells Other [facility] Other 01-21-2022 10:30-0400 Body weight 74.39 kg Tj Marxack Other [facility] Other 01-21-2022 10:30-0400 Diastolic blood pressure 71 mm[Hg] Tj Wells Other [facility] Other 01-21-2022 10:30-0400 Systolic blood pressure 148 mm[Hg] Tj Wells Other [facility] Other Encounters Encounter Date Encounter Type Care Provider Facility Start: 03-11-2024 End: 03-11-2024 [facility] Result Encounter Generic External Data Provider [facility] External Department Unsolicited Start: 03-11-2024 End: 03-11-2024 [facility] Result Encounter Generic External Data Provider [facility] External Department Unsolicited Start: 02-16-2024 End: 02-16-2024 Aminah Mccarthy MD Work Phone: [facility] Start: 02-16-2024 End: 02-16-2024 Aminah Mcacrthy MD Work Phone: [facility] Start: [...] mellitus with diabetic peripheral angiopathy without gangrene ([facility]) Start: 02-16-2024 End: 02-16-2024 ambulatory JERICHO MCCARTHY Not Available Start: 02-11-2024 End: 02-11-2024 ambulatory SANTANA [facility] Start: 02-02-2024 End: 02-02-2024 ambulatory RAJESH Mariel TRAORE Not Available Start: 10-31-2023 End: 10-31-2023 ambulatory SANTANA [facility] Start: 08-25-2023 End: 08-25-2023 ambulatory JERICHO MCCARTHY Not Available Start: 07-09-2023 End: 07-09-2023 ambulatory PRICE MENDEZ [facility] Start: 05-22-2023 End: 05-22-2023 ambulatory JERICHO MCCARTHY Not Available Start: 05-19-2023 End: 05-19-2023 ambulatory JERICHO ABAD [facility] Start: 04-28-2023 Evaluation and management of inpatient ESTHER [facility] Start: 04-28-2023 Evaluation and management of inpatient PATRICIA SCHULZ [facility] Start: 04-27-2023 End: 04-30-2023 Evaluation and management of inpatient ESTHER [facility] Start: 04-22-2023 End: 04-22-2023 ambulatory [...] Start: 03-05-2022 End: 03-05-2022 ambulatory Tj Wells Facility:[facility] Start: 03-05-2022 End: 03-05-2022 Admission to same day surgery center MD Jericho Mccarthy Work Phone: [facility] Start: 03-05-2022 End: 03-05-2022 ambulatory MD Jericho Mccarthy Work Phone: [facility] Work Phone: Start: 03-01-2022 End: 03-01-2022 ambulatory Tj Wells Facility:[facility] Start: 03-01-2022 End: 03-01-2022 ambulatory MD Jericho Mccarthy Work Phone: [facility] Work Phone: Start: 03-01-2022 End: 03-01-2022 Patient encounter procedure MD Jericho Mccarthy Work Phone: [id number] Start: 02-01-2022 End: 02-02-[address] DOCTOR MCCABE Facility:[facility] Start: 01-21-2022 End: 01-21-2022 ambulatory Tj Wells Other [facility] Other Start: 01-21-2022 Office outpatient ne w [...] 11-25-2025 Glaucoma screening Diabetes: R etinopathy Screening [facility] Start: 08-10-2025 Urine screening for protein Diabetes: Urine Protein Screening [facility] Comment on above: Postponed from 07/09 (Other Medical Reasons) Start: 02-03-2025 End: 02-03-2025 Patient encounter procedure 02/03/2025 9:00 AM EDT Office Visit [facility] [address] [place] [id number] Rajesh Traore MD [address] [place] [address] [facility] Start: 08-05-2024 Hemoglobin A1c measurement Diabetes: Hemoglobin A1C [facility] Start: 03-11-2024 End: 03-11-2024 Patient encounter procedure 03/11/2024 9:15 AM EDT Office Visit [facility] [address] [place] [id number] Jericho Mccarthy MD [address] [place] [address] [facility] Start: 02-16-2024 End: 02-16-2024 Patient encounter procedure 02/16/2024 8:15 AM EDT Office Visit [facility] [address] [place] [phone] Jericho Mccarthy MD [address] [place] [address] Arrived [facility] Comment on above: Arrived Start: 01-11-2024 Influenza vaccination Influenza Vacc ine (#1) [facility] Start: 10-07-2023 Hemoglobin A1c measurement Diabetes: Hemoglobin A1C [facility] Start: 03-05-2022 [facility] Start: 01-31-2017 Pneumococcal Vaccine : 65+ Years (2 of 2 - PCV) Pneumococcal Vaccine: 65+ Years (2 of 2 - PCV) [facility] Start: 1950 Medicare Annual Wellness (AWV) Medicare Annual Wellness (AWV) [facility] Start: 1950 Screening for malign ant neoplasm of colon [facility] Patient Education [facility] Work Phone: Immunizations Immunization Date Immunization Notes Care Provider Fa cili 02-18-2023 Influenza, High-dose Seasonal, Quadrivalent, Preservative Free Jericho Mccarthy MD Work Phone: [facility] 02-18-2023 influenza virus vaccine, unspecified formulation Jericho Mccarthy MD Work Phone: [facility] 04-30-2021 COVID-19 mRNA Bivale nt Booster (Pfizer) MD Jericho Mccarthy Work Phone: [facility] 04-30-2021 Influenza, Seasonal, Quadrivalent, Adjuvanted Jericho Mccarthy MD Work Phone: [facility] 08-01-2020 COVID-19 mRNAAkil (Pfizer) MD Jericho Mccarthy Work Phone: [facility] 07-12-2020 COVID-19 Akil Santana (Pfizer) MD Jericho Mccarthy Work Phone: [facility] 02-09-2019 influenza, injectabl e, quadrivalent, contains preservative Jericho Mccarthy MD Work Phone: [facility] 02-13-2017 influenza, seasonal, injectable Tj Wells Other [facility] Other 02-09-2017 influenza virus vaccine, unspecified formulation Jericho Mccarthy MD Work Phone: [facility] 06-27-2016 influenza, seasonal, injectable Tj Wells Other [facility] Other 02-01-2016 pneumococcal polysaccharide vaccine, 23 valent Tj Wells Other [facility] Other Payers Date Payer Category Payer Private Health Insurance [id number] 2022 Private Health Insurance [id number] 2022 Unknown [facility] [id number] 2022-Present [address] [place] [address] [id number] 2022 Self-pay [id number] 2022 Unknown [id number] 2009 Medicare [id number] 1959 Medicare [id number] [id number] 1959 Private Health Insurance [id number] 2.16.840.1.091569.19 1951 Unknown [id number] 2.16.840.1.352806.3.579.2 .593 1951 Unknown [id number] 2.16.840.1.626812.3.579.2 .593 1951 Unknown [id number] 2.16.840.1.757601.3.579.2 .593 1951 Unknown [id number] 2.16.840.1.465776.3.579.2 .593 1951 Unknown [id number] 2.16.840.1.437261.3.579.2 .593 1951 Unknown [id number] 2.16.840.1.714218.3.579.2 .593 1951 Unknown [id number] 2.16.840.1.334620.3.579.2 .593 1951 Unknown [id number] 2.16.840.1.313565.3.579.2 .593 1951 Unknown [id number] 2.16.840.1.670099.3.579.2 .593 1951 Unknown [id number] 2.16.840.1.007391.3.579.2 .593 1951 Unknown [id number] 2.16.840.1.901760.3.579.2 .593 1951 Unknown [id number] 2.16.840.1.258609.3.579.2 .593 1951 Unknown [id number] 2.16.840.1.220704.3.579.2 .1259 1951 Unknown [id number] 2.16.840.1.102970.3.579.2 .1259 1951 Unknown [id number] 2.16.840.1.068306.3.579.2 .1259 1951 Unknown [id number] 2.16.840.1.750890.3.579.2 .1259 Unknown [id number] 2.16.840.1.877341.3.579.2 .531 Unknown [id number] 2.16.840.1.288081.3.579.2 .531 Social History Date Type Detail Facility Unknown if ever smoked [facility] Other Start: 02-02-2024 End: 02-16-2024 Sex Assigned At [facility] Other Start: 11-11-2019 End: 04-15-2023 Tobacco smoking status NHIS Ex-smoker (finding) [facility] Start: 1950 Sex Assigned At Male [facility] Start: 05-12-1980 End: 05-12-1992 History of tobacco use Current smoker [facility] Start: 05-12-1980 End: 05-12-1992 History of tobacco use Cigarette Smoker [facility] Start: 04-15-2023 Tobacco use and exposure Smokeless tobacco non-user [facility] Healthcare Start: 02-02-2024 End: 02-16-2024 History of Social function [facility] Start: 1950 Sex assigned at Not on file [facility] Medical Equipment Procedure Code Equipment Code Equipment Original Text Equipment Identifier Dates Creation or revision of arteriovenous fistula GRAFT ARTEGRAFT 6MM X 40CM FDA Start: 01-14-2017 Creation or revision of arteriovenous fistula GRAFT ARTEGRAFT 6MM X 40CM FDA Start: 01-14-2017 Goals Date Patient Goal Desired Activity /State Clinical Notes 09-09-2009 to 04-13-2024 Jericho Mccarthy MD - 02/16/2024 8:49 AM Donna Mccarthy MD - 02/16/2024 8:49 AM Donna Mccarthy MD - 02/16/2024 8:48 AM Donna Mccarthy MD - 02/16/2024 8:15 AM EDT Note Date & Type Note Facility 04-13-2024 Note Patient called reque sting refill on Furosamide. Patient was informed rx was discontinued in Jan by Santana. [facility] 02-16-2024 History of Present illness Narrative Associated Problem(s): Peripheral vascular disease (CMS/HCC) Follow with specialists. Associated Problem(s): Type 2 diabetes mellitus with hyperglycemia, with long-term current use of insulin (CMS/HCC) BS controlled and at times low. A1C 5.6 and decrease basaglar to 15 units daily. Stick to ADA diet and limit carbs. Associated Problem(s): Essential hypertension, benign ([facility]) BP controlled and monitor PRN. Images from [...] 100 UNIT/ML pen documented in this encounter [facility] 01-19-2024 Note Mg 1.2 reviewed with PRUDENCIO Chou. Patient was previously refusing infusion for Magnesium and note from visit 10/30 was not complete. Per PRUDENCIO Chou on Zando secure chat patient is to be on Amiliride 5mg daily, take Maalox and Mylanta with Mg. Phone call to patient who had stopped Amiliride in error and has been continuing to take Amlodipine which was discontinued. Patient requested script for Amiliride to be sent to [facility] in [place]. Reviewed magnesium rich foods with patient. Patient also states he is taking 2400 mg of magnesium daily. Instructed patient to get repeat labs this month. Patient verbalizes understanding. Also mailed standing lab order for monthly BK to patient to have added to standing labs. [facility] 10-31-2023 Note Patient notified abo ut mag level of 1.3, he stated he saw the BIOMETRICS EXPERIMENTALIST here today and came up with a [...] DM next week. Instructed patient to consider Big Data Solutions Architect locally to him: quan del castillo. Pt [...] 0837 CALCIUM 9.1 (more content not included)... [facility] 07-09-2023 Note 07/10/23 Chief Complaint Patient presents with Kidney Follow-up Patient has no major concerns today PCP: Jericho Mccarthy MD Txp Referring: Preferred Pharmacy: [id number] [place], [place] - [address] [facility] [address] [facility] [address] [facility] - [address] [address] [facility] [address] [place] [address] [facility] [address] [address] Subjective Visit Vitals BP 124/56 (BP Location: [...] Dose Status aMILoride (Midamor) 5 mg tablet [id number] No Take 5 mg by mouth in the morning. Historical Provider, Not Taking Flag for Review aMILoride (Midamor) 5 mg tablet [id number] Yes Take 1 tablet (5 mg) by mouth in the morning. Jericho Abad NP Taking Active amLODIPine (Norvasc) 10 mg tablet [id number] Yes Take 1 tablet (10 mg) by mouth in the morning. Benja Mcghee MD Taking Active atorvastatin (Lipitor) 10 mg tablet [id number] Yes Take 1 tablet (10 mg) by mouth every other day. Gita Egan NP Taking Active blood-glucose [facility] [id number] Yes Test daily before all meals/snacks and once before bedtime. With 100 lancets and strips Esther Garduno MD Taking Active carvedilol (Coreg) 12.5 mg tablet [id number] Yes Take 1 tablet (12.5 mg) by mouth with breakfast and with evening meal. Gita Egan NP Taking Active cinacalcet (Sensipar) 30 mg tablet [id number] Yes Take 1 tablet every day by oral route. Praveena Cohen MD Taking Active furosemide (Lasix) 20 mg tablet [id number] Yes take 1 tablet by mouth once daily Naga Bosch MD Taking Active insulin glargine (Lantus Solostar U-100 Insulin) 100 unit/mL (3 mL) injection pen [id number] Yes Inject 20 Units under the skin at bedtime. Esther Garduno MD Taking Active isopropyl alcohoL 70 % towelette [id number] Yes Test daily before all meals/snacks and once before bedtime. Esther Garduno MD Taking Active lisinopril 20 mg tablet [id number] Yes Take 1 tablet (20 mg) by mouth in the morning. Benja Mcghee MD Taking Active magnesium oxide (Mag-Ox) 400 mg (241.3 mg magnesium) tablet [id number] Yes Take 2 tablets (800 mg) by mouth in the morning, at noon, and at bedtime. take 2 tablets by mouth three times a day with meals Jericho Abad NP Taking Active metFORMIN (Glucophage) 500 mg tablet [id number] Yes Take 1 tablet (500 mg) by mouth with breakfast and with evening meal. Esther Garduno MD Taking Active mycophenolate (Myfortic) 180 mg EC tablet [id number] Yes Take 4 tablets (720 mg) by mouth in the morning and at bedtime. Jericho Abad NP Taking Active omeprazole OTC (PriLOSEC OTC) 20 mg EC tablet [id number] Yes Take 1 tablet (20 mg) by mouth before breakfast. Do not crush, chew, or split. Esther Garduno MD Taking Active pen needle, diabetic 31 gauge x 5/16 needle [id number] Yes Use to inject 1-4 times daily as directed. Esther Garduno MD Taking Active sildenafil (Revatio) 20 mg tablet [id number] Yes Take 1 tablet 3 times a day by oral route for 90 days. Benja Mcghee MD Taking Active sulfaSALAzine (Azulfidine) 500 mg EC tablet [id number] Yes Take 500 mg by mouth in the morning and at bedtime. Dane Kerr MD Taking Active tacrolimus (Prograf) 0.5 mg capsule [id number] Yes Take 1 capsule (0.5 mg) by [...] statin therapy COLD (chronic obstructive lung disease) ([facility]/HCC) Essential hypertension, benign Pleurisy with effusion Polycystic kidney DAVID (acute kidney injury) ([facility]) Hypomagnesemia Family History Problem Relation [...] low Mag level today with Jericho Doran BIOMETRICS EXPERIMENTALIST and was taking 8-9 tablets daily but is now reducing to Mag Oxide 800mg TID. [facility] 05-19-2023 Note 05/19/23 Chief Complaint Patient presents with Kidney Follow-up No concerns PCP: Jericho Mccarthy MD Txp Referring: Preferred Pharmacy: [facility] #[id number] [place], [place] - [address] [facility] [address] [facility] [address] [facility] [address] [address] [facility] [address] [facility] [address] [place] [address] [facility] [address] [address] Subjective Visit Vitals BP 120/62 (BP Location: [...] Dose Status aMILoride (Midamor) 5 mg tablet [id number] Yes Take 5 mg by mouth in the morning. Historical Provider, Taking Active amLODIPine (Norvasc) 10 mg tablet [id number] Yes Take 1 tablet (10 mg) by mouth in the morning. Benja Mcghee MD Taking Active atorvastatin (Lipitor) 10 mg tablet [id number] Yes Take 1 tablet (10 mg) by mouth every other day. Gita Egan NP Taking Active blood-glucose meter misc [id number] Yes Test daily before all meals/snacks and once before bedtime. With 100 lancets and strips Esther Garduno MD Taking Active carvedilol (Coreg) 12.5 mg tablet [id number] Yes Take 1 tablet (12.5 mg) by mouth with breakfast and with evening meal. Gita Egan NP Taking Active cinacalcet (Sensipar) 30 mg tablet [id number] Yes Take 1 tablet every day by oral route. Praveena Cohen MD Taking Active furosemide (Lasix) 20 mg tablet [id number] Yes take 1 tablet by mouth once daily Naga Bosch MD Taking Active insulin glargine (Lantus Solostar U-100 Insulin) 100 unit/mL (3 mL) injection pen [id number] Yes Inject 20 Units under the skin at bedtime. Esther Garduno MD Taking Active isopropyl alcohoL 70 % towelette [id number] Yes Test daily before all meals/snacks and once before bedtime. Esther Garduno MD Taking Active lisinopril 20 mg tablet [id number] Yes Take 1 tablet (20 mg) by mouth in the morning. Benja Mcghee MD Taking Active magnesium oxide (Mag-Ox) 400 mg (241.3 mg magnesium) tablet [id number] Yes take 2 tablets by mouth three times a day with meals Woodrow Root MD Taking Active metFORMIN (Glucophage) 500 mg tablet [id number] Yes Take 1 tablet (500 mg) by mouth with breakfast and with evening meal. Esther Garduno MD Taking Active mycophenolate (Myfortic) 180 mg EC tablet [id number] Yes Take 4 tablets (720 mg) by mouth in the morning and at bedtime. Jericho Abad NP Taking Active omeprazole OTC (PriLOSEC OTC) 20 mg EC tablet [id number] Yes Take 1 tablet (20 mg) by mouth before breakfast. Do not crush, chew, or split. Esther Garduno MD Taking Active pen needle, diabetic 31 gauge x 5/16 needle [id number] Yes Use to inject 1-4 times daily as directed. Esther Garduno MD Taking Active sildenafil (Revatio) 20 mg tablet [id number] Yes Take 1 tablet 3 times a day by oral route for 90 days. Benja Mcghee MD Taking Active sulfaSALAzine (Azulfidine) 500 mg EC tablet [id number] Yes Take 500 mg by mouth in the morning and at bedtime. Dane Kerr MD Taking Active tacrolimus (Prograf) 0.5 mg capsule [id number] Yes Take 1 capsule (0.5 mg) by [...] effusion Polycystic kidney DAVID (acute kidney injury) ([facility]) Hypomagnesemia Family History Problem Relation [...] as a transfer from outside hospital in [place] for concerns of possible DKA, hyponatremia, and [...] Dose Status aMILoride (Midamor) 5 mg tablet [id number] Take 1 tablet (5 mg) by mouth in the morning. Woodrow Root MD Active amLODIPine (Norvasc) 10 mg tablet [id number] Take 1 tablet (10 mg) by mouth in the morning. Benja Mcghee MD Active atorvastatin (Lipitor) 10 mg tablet [id number] Take 1 tablet (10 mg) by mouth every other day. Gita Egan NP Active carvedilol (Coreg) 12.5 mg tablet [id number] Take 1 tablet (12.5 mg) by mouth with breakfast and with evening meal. Gita Egan NP Active cinacalcet (Sensipar) 30 mg tablet [id number] Take 1 tablet every day by oral route. Praveena Cohen MD Active furosemide (Lasix) 20 mg tablet [id number] take 1 tablet by mouth once daily Naga Bosch MD Active lisinopril 20 mg tablet [id number] Take 1 tablet (20 mg) by mouth in the morning. Benja Mcghee MD Active magnesium oxide (Mag-Ox) 400 mg (241.3 mg magnesium) tablet [id number] take 2 tablets by mo (more content not included)... [facility] 04-30-2023 Note Hospital Medicine Discharge Summary Final Discharge Diagnosis: DKA Admission Diagnosis: DAVID (acute kidney injury) (CMS/[facility]) [N17.9] Hospital course: 72 y.o. male who came from home with DAVID with hyponatremia and uncontrolled hyperglycemia. This is a 72 years old gentleman with a medical history of end-stage renal disease s/p renal transplant 3 years ago here in [facility], peripheral vascular disease, pulmonary hypertension, CAD, and hypertension. Mixed hyperlipidemia, COPD, polycystic kidneys, cataract. Came in as transfer from the outside facility hospital in [place] for concern of possible uncontrolled hyperglycemia with [...] Center 05/02/2023 9:00 AM Ramos Hendrickson PA-C [facility] 05/19/2023 9:00 AM Jericho Abad [...] These medications were sent to [id number] - [place], [place] - [address] [facility] [address] [place] [address] blood-glucose meter mis insulin glargine 100 unit/mL [...] Progress Note - 04/29/2023 11:18 AM; Room: [address] [place] [address] Admission: 04/27/2023 10:59 PM; Length of stay: 2 days THE HOSPITALIST TEAM PREFERS TO USE [employer] CHAT FOR COMMUNICATION 7AM-7PM. IF I DO NOT RESPOND WITHIN 15 MINUTES, PLEASE PAGE ME/CALL THROUGH THE SOCIAL SERVICE ASSISTANT. FROM 7PM-7AM, PLEASE PAGE [phone](COVR) Code Status: Full Code Barriers to Discharge: [...] Problems Principal Problem: DAVID (acute kidney injury) ([facility]) Assessment and Plan # DKA [...] Academy of Nutrition and Dietetics and the [place] Society of Enteral and Parenteral Nutrition, meets [...] as a transfer from outside hospital in [place] for concerns of possible DKA, hyponatremia, and [...] Dose Status aMILoride (Midamor) 5 mg tablet [id number] Take 1 tablet (5 mg) by mouth in the morning. Woodrow Root MD Active amLODIPine (Norvasc) 10 mg tablet [id number] Take 1 tablet (10 mg) by mouth in the morning. Benja Mcghee MD Active atorvastatin (Lipitor) 10 mg tablet [id number] Take 1 tablet (10 mg) by mouth every other day. Gita Egan NP Active carvedilol (Coreg) 12.5 mg tablet [id number] Take 1 tablet (12.5 mg) by mouth with breakfast and with evening meal. Gita Egan NP Active cinacalcet (Sensipar) 30 mg tablet [id number] Take 1 tablet every day by oral route. Praveena Cohen MD Acti (more content not included)... [facility] 04-28-2023 Note Hospital Medicine Daily Progress Note - 04/28/2023 12:34 PM; Room: [address] [place] [address] Admission: 04/27/2023 10:59 PM; Length of stay: 1 days THE HOSPITALIST TEAM PREFERS TO USE [employer] CHAT FOR COMMUNICATION 7AM-7PM. IF I DO NOT RESPOND WITHIN 15 MINUTES, PLEASE PAGE ME/CALL THROUGH THE SOCIAL SERVICE ASSISTANT. FROM 7PM-7AM, PLEASE PAGE [phone](COVR) Code Status: Full Code Barriers to Discharge: [...] Problems Principal Problem: DAVID (acute kidney injury) ([facility]) Assessment and Plan # DKA [...] Academy of Nutrition and Dietetics and the [place] Society of Enteral and Parenteral Nutrition, meets [...] PM THE HOSPITALIST TEAM PREFERS TO USE [employer] FOR COMMUNICATION 7AM-7PM. IF I DO NOT RESPOND WITHIN 15 MINUTES, PLEASE PAGE ME/CALL THROUGH THE SOCIAL SERVICE ASSISTANT. FROM 7PM-7AM, PLEASE PAGE [phone](COVR) Chief Complaint No chief complaint on file. History of Present Illness Roger Suarez is an 72 y.o. male who came from home with DAVID with hyponatremia and uncontrolled hyperglycemia. This is a 72 years old gentleman with a medical history of end-stage renal disease s/p renal transplant 3 years ago here in [facility], peripheral vascular disease, pulmonary hypertension, CAD, and hypertension. Mixed hyperlipidemia, COPD, polycystic kidneys, cataract. Came in as transfer from the outside facility hospital in [place] for concern of possible uncontrolled hyperglycemia with [...] Diagnosis Date Noted DAVID (acute kidney injury) ([facility]) 04/27/2023 COLD (chronic obstructive lung disease) ([facility]) 04/16/2023 Essential hypertension, benign 04/16/2023 Pleurisy with effusion 04/16/2023 Polycystic kidney 04/16/2023 Moderate mixed hyperlipidemia not requiring statin therapy 04/16/2022 Cataract 01/29/2022 Congestive heart failure ([facility]) 01/29/2022 Coronary atherosclerosis 01/29/2022 Multiple congenital cysts of kidney 01/29/2022 History of renal transplant 10/31/2021 Increased infection risk status post immunosuppressive therapy 10/31/2021 Peripheral vascular disease ([facility]) 01/23/2018 End-stage renal disease ([facility]) 07/22/2009 Assessment and Plan #Acute [...] this hospital stay by a member of [facility]. Past Medical History Past Medical History: Diagnosis Date CHF (congestive heart failure) ([facility]) Chronic kidney disease Coronary artery disease Hypertension Pulmonary hypertension ([facility]) Past Surgical History Past Surgical History: Procedure [...] included)... [facility] 04-22-2023 Note [place] Cardiology - [facility] Subjective Roger Suarez is a 72 y.o. [...] overload/acute heart failure admission on 08/2018 at [facility]. He had couple of dialysis [...] lower extremity edema. Cardiac catheterization 03/04/2019: 1. [id number] single-vessel coronary artery disease with 50% stenosis in the mid to distal circumflex and minimal disease in the LAD and RCA. 2. Moderate elevation of filling pressures. 3. Moderate pulmonary hypertension. 4. Preserved cardiac output and cardiac index. RA 8, RV 59/4, 12. PA (more content not included)... [facility] 03-05-2022 Procedure note [facility] 01-21-2022 Evaluation note Encounter Date Diagnosis Assessment Notes Jan, Diarrhea (ICD-10 - R19.7) Colonoscopy Okay to take Imodium - 1 tablet every morning Jan, Fecal urgency (ICD-10 - R15.2) [facility] Other 05-01-2010 History general Narrative - Reported* [...] Hospitalization History Kidney Issue; on transplant list ([facility]) 02/2018 Hospitalization History pulmonary embolism 0 [facility] Other Evaluation noteNo assessment information available [facility] Work Phone: Evalumkxtq note* Diagnosis Onset Date Resolution Status Diarrhea acute [facility] Work Phone: Evaluation note* Diagnosis Type 2 diabetes mellitus with hyperglycemia, with long-term current use of insulin ([facility]/HCC)- Primary Essential hypertension, benign ([facility]/HCC) Essential hypertension, benign Peripheral vascular disease (CMS/HCC) Unspecified peripheral vascular disease Type 2 diabetes mellitus with diabetic chronic kidney disease (CMS/HCC) Chronic kidney disease, stage 2 (mild) Type 2 diabetes mellitus with diabetic peripheral angiopathy without gangrene ([facility]/HCC) documented in this encounter [facility] Discharge instructions Additional Instructions DISCHARGE INSTRUCTIONS FOR [...] if you have any problems. -Office number [phone] [facility] Work Phone: Reason for visit NarrativePATIENT REFERRED BY DR. MCCARTHY FOR EVALUATION AND TREATMENT OF DIARRHEAOshkosh [employer] Other Summary Purpose Family History No Family [...] section and content) DATE CREATED AUTHOR [facility]/2019 [facility] DATE CREATED AUTHOR AUTHOR'S ORGANIZ ATION 11/02/2021 [facility] DATE CREATED AUTHOR AUTHOR'S ORGANIZ ATION 03/12/2022 [facility] DATE CREATED AUTHOR AUTHOR'S ORGANIZ ATION 10/18/2022 [facility] DATE CREATED AUTHOR AUTHOR'S ORGANIZ ATION 02/16/2024 [facility] EPIC DATE CREATED AUTHOR AUTHOR'S ORGANIZ ATION 04/14/2024 [facility] Care Teams (unrecognized sec tion and content) Team Status: Inactive Member Role Status Dates Jericho Mccarthy MD Primary Care Provider Active Tj Wells MD Attending Provider Active Team Status: Active Member Role Status Dates Jericho Mccarthy MD Primary Care Provider Active Cloth Drier Relationship Specialty Start Date End Date Jericho Mccarthy MD [address] [place] [id number] PCP - General Family Medicine 08/25/23 [employer] Drier Relationship Specialty Start Date End Date Jericho Mccartyh MD [address] [place] [phone] PCP - General Family Medicine 08/25/23 Cloth Drier Relationship Specialty Start Date End Date Jericho Mccarthy MD [address] [place] [phone] PCP - General Family Medicine 08/25/23 [...] BE BASED ON THE PRIMARY CLINICAL RECORDS. [facility]. provides no warranty or guarantee of the accuracy or completeness of information in this document.
[2024-04-16 07:47] LABS: Basophils Absolute Auto 0.1 10^3/uL (0.0-0.1); Basophils Percent Auto 0.7 % (0.2-2.0); Eosinophils Absolute Auto 0.2 10^3/uL (0.0-0.7); Eosinophils Percent Auto 3.6 % (0.9-7.0); Hemoglobin 11.7 g/dL (14.0-18.0); Immature Granulocytes Abs Auto 0.04 10^3/uL (0.00-0.03); Immature Granulocytes Pct Auto 0.6 % (0.0-0.5); Lymphocytes Absolute Auto 0.9 10^3/uL (1.2-3.8); Lymphocytes Percent Auto 13.9 % (20.5-60.0); Mean Corpuscular HGB Conc 32.5 g/dL (29.9-35.2); Mean Corpuscular Hemoglobin 29.3 pg (25.9-34.0); Mean Corpuscular Volume 90.2 fL (80.0-94.0); Mean Platelet Volume 8.9 fL (9.5-13.5); Monocytes Absolute Auto 0.6 10^3/uL (0.3-0.8); Monocytes Percent Auto 8.2 % (1.7-12.0); Neutrophils Absolute Auto 4.9 10^3/uL (1.4-6.5); Platelet Count 301 10^3/uL (150-450); Red Blood Count 3.99 10^6/uL (4.70-6.10); White Blood Count 6.7 10^3/uL (4.0-11.0)
[2024-04-16 08:16] LABS: Alanine Aminotransferase 19 U/L (16-63); Albumin Globulin Ratio 1.2; Albumin Level 3.9 g/dL (3.4-5.0); Alkaline Phosphatase 127 U/L (46-116); Anion Gap 9.6; Aspartate Amino Transferase 15 U/L (15-37); Bilirubin Direct 0.1 mg/dL (0.0-0.2); Bilirubin Total 0.5 mg/dL (0.2-1.0); Calcium 9.2 mg/dL (8.5-10.1); Carbon Dioxide 28.8 mmol/L (21.0-32.0); Chloride 103 mmol/L (98-107); Estimated GFR (African America >60 (>=60 mL/min/1.73m^2); Estimated GFR (Non-African Ame 58 (>=60 mL/min/1.73m^2); Globulin 3.2 g/dL; Glucose 97 mg/dL (74-106); Magnesium 1.8 mg/dL (1.8-2.4); Potassium 5.4 mmol/L (3.5-5.1); Sodium 136 mmol/L (136-145); Total Protein 7.1 g/dL (6.4-8.2); Uric Acid 6.3 mg/dL (3.5-7.2)
[2024-04-19 08:07] LABS: Tacrolimus (FK506), Blood 6.3 ng/mL (2.0-20.0)
== END 2024-04-16 06:54 | disposition home or self-care (01) ==
LOC: LAB 06:54
PROVIDERS: PCP Family Medicine
DX: E13.9 Other specified diabetes mellitus without complications (principal); Z94.0 Kidney transplant status
CPT/HCPCS: 36415; 80053; 80197; 82248; 83735; 84100; 84550; 85025

== ENCOUNTER 2024-06-04 06:57 | Outpatient (OUT) | payer MEDICARE, OTHER, SELFPAY ==
--- OUTSIDE RECORDS SUMMARY | 2024-06-04 07:01 | XMS_ITS | CCD ---
Author Organization [facility] Care Team Providers Care Telephone Triage Nurse Name Role Phone Tj Wells Unavailable MD [...] NADERER, DR JERICHO Floyd Primary Care Unavailable CHIGNIK BAY, DR MERRITT Consulting Unavailable CHIGNIK BAY, DR MERRITT Attending Unavailable CHIGNIK BAY, DR MERRITT Admitting Unavailable NADERER, DR FERGUSON A Primary Care Unavailable MISC, DR ALVAREZ Attending Unavailable MISC, DR ALVAREZ Admitting Unavailable NADERER, DR JERICHO Floyd Primary Care Unavailable MISC, DR ALVAREZ Consulting Unavailable CHIGNIK BAY, DR MERRITT Consulting Unavailable CHIGNIK BAY, DR MERRITT Attending Unavailable NADERER, DR JERICHO Floyd Primary Care Unavailable CHIGNIK BAY, DR MERRITT Admitting Unavailable MISC, DR ALVAREZ [...] Unavailable MISC, DR ALVAREZ Attending Unavailable MISC, DOCTOR Admitting Unavailable MISC, DR ALVAREZ Consulting Unavailable FABIO, DR FERGUSON A Primary Care Unavailable FABIO, JERICHO Attending Unavailable FABIO, JERICHO Attending Unavailable RAJESH GAINES Attending Unavailable FABIO, JERICHO Attending Unavailable Jericho Mccarthy MD Primary Care Provider PRICE MENDEZ Attending Unavailable URVASHI, SANTANA Attending Unavailable URVASHI, SANTANA Attending Unavailable Allergies Allergy Classification Reported Allergen(s) Allergy Type Date of Onset Reaction(s) Facility (10 sources) Non-steroidal anti-inflammator y agent Drug Intolerance 2 [facility] (1 source) NSAIDs; Translations: [NSAIDS (NON-STEROIDAL ANTI-INFLAMMATOR Y DRUG)] Propensity to adverse reactions to drug (disorder) 2 [facility] Repository Medications Current Medications Medication Drug Class(es) Dates Sig (Normalized) Sig (Original) aMILoride hydrochloride 5 mg oral tablet (4 sources) Potassium-sparing Diuretic Start: 01-19-2024 End: 01-18-2025 take 1 tablet by mouth in the morning aMILoride (Midamor) 5 MG tablet Take 5 mg by mouth in the morning. 01/19/2024 01/18/2025 Active amLODIPine 10 mg oral tablet (13 sources) Dihydropyridine Calcium Channel Swetha Start: 07-08-2017 take 10 mg by mouth once daily Amlodipine Active 10 MG PO Daily July 08, 2017 1:00am atorvastatin 10 mg oral tablet (12 sources) HMG-CoA Reductase Inhibitor Start: 10-04-2022 take [...] 90 Active carvedilol 3.125 mg oral tablet (18 sources) alpha-Adrenergic Swetha, beta-Adrenergic Swetha Start: 03-05-2022 [...] meals. Active cinacalcet 30 mg oral tablet (12 sources) Calcium-sensing Receptor Agonist Start: 03-05-2022 take 30 mg by mouth once daily Cinacalcet Active 30 MG PO Daily March 05, 2022 12:00am Cinacalcet HCl A ctive dicyclomine hydrochloride 20 mg oral tablet (1 source) Anticholinergic Start: 03-05-2022 take 20 mg by mouth twice daily Dicyclomine Active 20 MG PO Twice daily March 05, 2022 12:00am furosemide 20 mg oral tablet (6 sources) Loop Diuretic Start: 09-16-2023 take 1 [...] ml insulin glargine 100 unt/ml pen injector (12 sources) Insulin Analog Start: 03-03-2024 Ron Arceo en 100 UNIT/ML pen Indications: Type 2 diabetes mellitus with hyperglycemia, with long-term current use of insulin ([facility]) INJECT 20 UNITS SUBCUTANEOUSLY (UNDER THE SKIN) [...] hyperglycemia, with long-term current use of insulin (CMS/[facility]) INJECT 20 UNITS SUBCUTANEOUSLY AT BEDTIME 6 mL 3 11/18/2023 02/16/2024 Discontinued lisinopril 20 mg oral tablet (13 sources) Angiotensin Converting Enzyme Inhibitor Start: 01-07-2017 take 20 mg by mouth once daily Lisinopril Active 20 MG PO Daily January 07, 2017 12:00am Start: 01-07-2017 take 20 mg by mouth twice carmelo y Lisinopril Active 20 MG PO Twice daily January 07, 2017 12:00am Magnesium (1 source) Magnesium Active magnesium oxide 400 mg oral tablet (12 sources) Start: 03-05-2022 take 1200 mg by [...] Active metFORMIN hydrochloride 500 mg oral tablet (10 sources) Biguanide Start: 11-27-2023 take 1 tablet by mouth twice daily at dinner metFORMIN (Glucophage) 500 MG tablet Indications: Type 2 diabetes mellitus with hyperglycemia, without long-term current use of insulin (CMS/HCC) take 1 tablet by mouth twice a day WITH MORNING AND EVENING MEALS 180 tablet 11 11/27/2023 Active mycophenolic acid 180 mg delayed release oral tablet (11 sources) Antimetabolite Immunosuppressant take 4 tablets by mouth in the morning mycophenolate (Myfortic) 180 MG EC tablet Take 4 tablets by mouth in the morning and 4 tablets before bedtime. Active take 2 tablets by mo [facility] every twelve hours Mycophenolate Sodium 180 MG 2 tablets Or ally Twice a day Active omeprazole 20 mg delayed release oral tablet (10 sources) Proton Pump Inhibitor Start: 04-30-2023 take 1 tablet by mouth before mealtime omeprazole OTC (PriLOSEC OTC) 20 MG EC tablet Take 20 mg by mouth in the morning. Take before meals. 04/30/2023 Active sildenafil 20 mg oral tablet (12 sources) Phosphodiesterase 5 Inhibitor Start: 11-29-2022 take 1 tablet by mouth every eight hours sildenafil (Revatio) 20 MG tablet Take 20 mg by mouth every 8 (eight) hours 11/29/2022 Active Start: 03-05-2022 take 20 mg by mouth three times daily Sildenafil (Pulm.Hypertension) Active 20 MG PO Three times daily March 05, 2022 12:00am take 1 tablet by [facility] three times daily Sildenafil Citrate 20 MG [...] tacrolimus 0.5 mg extended release oral capsule (12 sources) Calcineurin Inhibitor Immunosuppressant Start: 03-05-2022 take [...] aspirin 81 mg delayed release oral tablet (6 sources) Platelet Aggregation Inhibitor, Nonsteroidal Anti-inflammatory Drug [...] PO Twice daily February 23, 2019 12:00am October 25th, 2022 7:07am lidocaine 25 mg/ml / prilocaine [...] 2 MCG IVP MWF DURING DIALYSIS PER [facility] (08/26/18) 5 ml sodium ferric gluconate complex 12.5 mg/ml injection (2 sources) Start: 07-08-2017 End: 03-05-2022 Sodium Ferric Gluconat-Sucrose (Ferrlecit) 62.5 mg/5 mL Solution Discontinued 125 MG IV Q14D July 08, 2017 1:00am March 05, 2022 7:07am RECEIVES FERRLECIT 125MG IVP EVERY OTHER FRIDAY (DOSE DUE 08/26/18 PER [facility]) Problems Active Problems Problem Classification Problem Date Documented Date Episodic/Chronic Cataract (10 sources) Cataract; Translations: [Unspecified cataract] Onset: 3 05-02-2023 Chronic Chronic kidney disease (20 sources) Dependence on renal dialysis; Translations: [Dependence on renal dialysis] Onset: 0 08-26-2018 Chronic Chronic obstructive pulmonary disease and bronchiectasis (10 sources) Chronic obstructive lung disease; Translations: [Chronic obstructive pulmonary disease, unspecified] Onset: 3 05-22-2023 Chronic Congestive heart failure; nonhypertensive (10 sources) Chronic heart failure co-occurrent with normal ejection fraction; Translations: [Chronic diastolic (congestive) heart failure] Onset: 2 05-22-2023 Chronic Coronary atherosclerosis and other heart disease (10 sources) Coronary atherosclerosis; Translations: [Atherosclerotic heart disease of [place] coronary artery without angina pectoris] Onset: 2 05-02-2023 Chronic Diabetes mellitus with complications (16 sources) Hyperglycemia due to type 2 diabetes mellitus; Translations: [Type 2 diabetes mellitus with hyperglycemia] Onset: 4 05-22-2023 Chronic Disorders of lipid metabolism (11 sources) Pure hypercholesterolemia, unspecified; Translations: [Mixed hyperlipidemia] Onset: 2 05-02-2023 Chronic Esophageal disorders (2 sources) Gastroesophageal reflux disease; Translations: [Gastro-esophageal reflux disease without esophagitis] 08-26-2018 Chronic Essential hypertension (20 sources) Hypertensive disorder; Translations: [Essential (primary) hypertension] Onset: 2 Resolved: 4 08-26-2018 Chronic Genitourinary congenital anomalies (20 sources) Multiple congenital cysts of kidney; Translations: [Polycystic kidney, unspecified] Onset: 2 08-26-2018 Chronic Hypertension with complications and secondary hypertension (2 sources) Hypertensive emergency; Translations: [Hypertensive emergency] 08-26-2018 Chronic Other aftercare (4 sources) 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; 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GN [facility]PL] Onset: 3 Chronic Other [...] of other genitourinary organs] Onset: 2 Episodic Other skin disorders (2 sources) Lentiginosis; Translations: [Other melanin hyperpigmentation] 02-02-2024 Episodic Other skin disorders (2 sources) Sebaceous hyperplasia; Translations: [Other specified follicular disorders] 02-02-2024 Episodic Peripheral and visceral atherosclerosis (12 sources) Peripheral vascular disease; Translations: [Peripheral vascular disease, unspecified] Onset: 8 05-02-2023 Chronic Respiratory failure; insufficiency; arrest (adult) (2 [...] te Episodic/Chronic Acute and unspecified renal failure (10 sources) Acute renal failure syndrome; Translations: [Acute [...] 2 Episodic Other aftercare (1 source) Other intermediate (current) drug therapy; Translations: [OTH RE ETCHER CURRENT DRUG THERAPY] Onset: 2 Episodic Other gastrointestinal disorders (3 sources) Diarrhea, unspecified; Translations: [Diarrhea] Onset: 2 Resolved: 2 Episodic Other gastrointestinal disorders (1 source) Fecal urgency Onset: 2 Resolved: 2 Episodic Other non-epithelial cancer of skin (12 sources) Basal cell carcinoma of dorsum of nose; Translations: [Basal cell carcinoma of skin of nose] Onset: 3 05-02-2023 Episodic Pleurisy; pneumothorax; pulmonary collapse (10 sources) Pleurisy with effusion; Translations: [Pleural effusion, not elsewhere classified] Onset: 3 04-16-2023 Episodic Residual codes; unclassified (10 sources) At risk for infection; Translations: [Personal history of immunosupression therapy] Onset: 2 05-02-2023 Episodic Results Test Name Value Interpretation Reference Range Facility ALL CBC WITH AUTO DIFFon BASOPHILS ABSOLUTE AUTO 0.1 [facility] Basophils/100 WBC (Bld) 0.7 % 0.2 - 2.0 % [facility] Eosinophils/100 WBC (Bld) 3.6 % 0.9 - 7.0 % [facility] Erythrocyte distribution width (RBC) [Ratio] 14 % 11.0 - 15.0 % [facility] Hematocrit (Bld) [Volume fraction] 36 % Low 42.0 - 54.0 % [facility] Hemoglobin (Bld) [Mass/Vol] 11.7 g/dL Low 14.0 - 18.0 g/dL [facility] IMMATURE GRANULOCYTES ABS AUTO 0.04 High [facility] Immature granulocytes/100 WBC (Bld) 0.6 % High 0.0 - 0.5 % [facility] Interpretation and review of laboratory results Abnormal [facility] LYMPHOCYTES ABSOLUTE AUTO 0.9 Low [facility] Lymphocytes/100 WBC (Bld) 13.9 % Low 20.5 - 60.0 % [facility] MCH (RBC) [Entitic mass] 29.3 pg 25.9 - 34.0 pg [facility] MCHC (RBC) [Mass/Vol] 32.5 g/dL 29.9 - 35.2 g/dL [facility] MCV (RBC) [Entitic vol] 90.2 fL 80.0 - 94.0 fL [facility] MONOCYTES ABSOLUTE AUTO 0.6 [facility] Monocytes/100 WBC (Bld) 8.2 % 1.7 - 12.0 % [facility] NEUTROPHILS ABSOLUTE AUTO 4.9 [facility] Neutrophils/100 WBC (Bld) 73 % 43.0 - 75.0 % [facility] Platelet mean volume (Bld) [Entitic vol] 8.9 fL Low 9.5 - 13.5 fL [facility] TBH EO # 0.2 [facility] TB PLT 301 [facility] TB RBC 3.99 Low [facility] TB WBC 6.7 [facility] 36on 04-01-2024 36 Regarding echo resul t from 03/23/2024: MD Lurdes Stallings MA His echo overall was okay. He just needs a regular follow-up. Spoke with patient and scheduled him a follow up with Jennifer Egan CNP on 05/13/2024. Normal [facility] ALL CBC WITH AUTO DIFFon BASOPHILS ABSOLUTE AUTO 0 [facility] Basophils/100 WBC (Bld) 0.5 % 0.2 - 2.0 % [facility] Eosinophils/100 WBC (Bld) 2.7 % 0.9 - 7.0 % [facility] Erythrocyte distribution width (RBC) [Ratio] 13.7 % 11.0 - 15.0 % [facility] Hematocrit (Bld) [Volume fraction] 36.6 % Low 42.0 - 54.0 % [facility] Hemoglobin (Bld) [Mass/Vol] 12.1 g/dL Low 14.0 - 18.0 g/dL [facility] IMMATURE GRANULOCYTES ABS AUTO 0.03 [facility] Immature granulocytes/100 WBC (Bld) 0.5 % 0.0 - 0.5 % [facility] Interpretation and review of laboratory results Abnormal [facility] LYMPHOCYTES ABSOLUTE AUTO 0.9 Low [facility] Lymphocytes/100 WBC (Bld) 13.3 % Low 20.5 - 60.0 % [facility] MCH (RBC) [Entitic mass] 29.3 pg 25.9 - 34.0 pg [facility] MCHC (RBC) [Mass/Vol] 33.1 g/dL 29.9 - 35.2 g/dL [facility] MCV (RBC) [Entitic vol] 88.6 fL 80.0 - 94.0 fL [facility] MONOCYTES ABSOLUTE AUTO 0.5 [facility] Monocytes/100 WBC (Bld) 7.7 % 1.7 - 12.0 % [facility] NEUTROPHILS ABSOLUTE AUTO 5 [facility] Neutrophils/100 WBC (Bld) 75.3 % High 43.0 - 75.0 % [facility] Platelet mean volume (Bld) [Entitic vol] 9.1 fL Low 9.5 - 13.5 fL [facility] TBH EO # 0.2 [facility] TBH PLT 262 [facility] TBH RBC 4.13 Low [facility] TBH WBC 6.6 [facility] Documentationon 03-11-2024 Documentation [id number] Roger eKrr 1950 M Date Provider Department Center 03/11/2024 750-[facility] [place] TXP None Family History Problem Relation Age of Onset Diabetes Mother Hypertension Mother Coronary artery disease Mother Other Mother Cystic kidney disease Mother Hypertension Father Skin cancer Father Cystic kidney disease Father Cystic kidney disease Sister Heart disease Brother ALS Brother Cystic kidney disease Brother Family Status - Relation Status Age at Mother Father Sister Brother [facility] Follow-Upon 02-11-2024 Follow-Up [id number] Roger Kerr 1950 M Date Provider Department Center 02/11/2024 [id number] LANDIN TXP None Family History Problem Relation Age of Onset Diabetes Mother Hypertension Mother Coronary artery disease Mother Other Mother Cystic kidney disease Mother Hypertension Father Skin cancer Father Cystic kidney disease Father Cystic kidney disease Sister Heart disease Brother ALS Brother Cystic kidney disease Brother Family Status - Relation Status Age at Mother Father Sister Brother Level of Service:[id number] MA OFFICE/OUTPT VISIT,PROCEDURE ONLY Reason for Visit and Comments: Kidney Follow-up [[id number]] - Pt has no concerns at this time. Normal [facility] ALL CBC WITH AUTO DIFFon BASOPHILS ABSOLUTE AUTO 0.0 [facility] Basophils/100 WBC (Bld) 0.6 % 0.2 - 2.0 % [facility] Eosinophils/100 WBC (Bld) 3.1 % 0.9 - 7.0 % [facility] Erythrocyte distribution width (RBC) [Ratio] 13.6 % 11.0 - 15.0 % [facility] Hematocrit (Bld) [Volume fraction] 36.0 % Low 42.0 - 54.0 % [facility] Hemoglobin (Bld) [Mass/Vol] 12.3 g/dL Low 14.0 - 18.0 g/dL [facility] IMMATURE GRANULOCYTES ABS AUTO 0.01 [facility] Immature granulocytes/100 WBC (Bld) 0.1 % 0.0 - 0.5 % [facility] Interpretation and review of laboratory results Abnormal [facility] LYMPHOCYTES ABSOLUTE AUTO 0.8 Low [facility] Lymphocytes/100 WBC (Bld) 11.8 % Low 20.5 - 60.0 % [facility] MCH (RBC) [Entitic mass] 29.9 pg 25.9 - 34.0 pg [facility] MCHC (RBC) [Mass/Vol] 34.2 g/dL 29.9 - 35.2 g/dL [facility] MCV (RBC) [Entitic vol] 87.4 fL 80.0 - 94.0 fL [facility] MONOCYTES ABSOLUTE AUTO 0.5 [facility] Monocytes/100 WBC (Bld) 7.7 % 1.7 - 12.0 % [facility] NEUTROPHILS ABSOLUTE AUTO 5.4 [facility] Neutrophils/100 WBC (Bld) 76.7 % High 43.0 - 75.0 % [facility] Platelet mean volume (Bld) [Entitic vol] 9.4 fL Low 9.5 - 13.5 fL [facility] TBH EO # 0.2 [facility] TBH PLT 233 [facility] TB RBC 4.12 Low [facility] TB WBC 7.1 [facility] Orders Onlyon 01-16-2024 Orders Only [id number] Roger Kerr 1950 M Date Provider Department Center 01/16/2024 SANTANA EMERSON None Family History Problem Relation Age of Onset Diabetes Mother Hypertension Mother Coronary artery disease Mother Other Mother Cystic kidney disease Mother Hypertension Father Skin cancer Father Cystic kidney disease Father Cystic kidney disease Sister Heart disease Brother ALS Brother Cystic kidney disease Brother Family Status - Relation Status Age at Mother Father Sister Brother Normal [facility] ALL CBC WITH AUTO DIFFon BASOPHILS ABSOLUTE AUTO 0.0 [facility] Basophils/100 WBC (Bld) 0.5 % 0.2 - 2.0 % [facility] Eosinophils/100 WBC (Bld) 6.0 % 0.9 - 7.0 % [facility] Erythrocyte distribution width (RBC) [Ratio] 13.9 % 11.0 - 15.0 % [facility] Hematocrit (Bld) [Volume fraction] 35.3 % Low 42.0 - 54.0 % [facility] Hemoglobin (Bld) [Mass/Vol] 11.7 g/dL Low 14.0 - 18.0 g/dL [facility] IMMATURE GRANULOCYTES ABS AUTO 0.03 [facility] Immature granulocytes/100 WBC (Bld) 0.5 % 0.0 - 0.5 % [facility] Interpretation and review of laboratory results Abnormal [facility] LYMPHOCYTES ABSOLUTE AUTO 0.9 Low [facility] Lymphocytes/100 WBC (Bld) 13.1 % Low 20.5 - 60.0 % [facility] MCH (RBC) [Entitic mass] 29.8 pg 25.9 - 34.0 pg [facility] MCHC (RBC) [Mass/Vol] 33.1 g/dL 29.9 - 35.2 g/dL [facility] MCV (RBC) [Entitic vol] 90.1 fL 80.0 - 94.0 fL [facility] MONOCYTES ABSOLUTE AUTO 0.5 [facility] Monocytes/100 WBC (Bld) 7.6 % 1.7 - 12.0 % [facility] NEUTROPHILS ABSOLUTE AUTO 4.7 [facility] Neutrophils/100 WBC (Bld) 72.3 % 43.0 - 75.0 % [facility] Platelet mean volume (Bld) [Entitic vol] 9.3 fL Low 9.5 - 13.5 fL [facility] TBH EO # 0.4 [facility] TBH PLT 253 [facility] TB RBC 3.92 Low [facility] TB WBC 6.5 [facility] Follow-Upon 10-31-2023 Follow-Up [id number] Roger Kerr Tyson 1950 M Date Provider Department Center 10/31/2023 [id number] CROCKETT None Family History Problem Relation Age of Onset Diabetes Mother Hypertension Mother Coronary artery disease Mother Other Mother Cystic kidney disease Mother Hypertension Father Skin cancer Father Cystic kidney disease Father Cystic kidney disease Sister Heart disease Brother ALS Brother Cystic kidney disease Brother Family Status - Relation Status Age at Mother Father Sister Brother Level of Service:[id number] MA OFFICE/OUTPATIENT ESTABLISHED MOD MDM 30 MIN Reason for Visit and Comments: Kidney Follow-up [[id number]] - Pt has no concerns at this time. Normal [facility] BILIRUBIN, DIRECTon 07-09-19 Magnesium [Mass/Vol] 0.2 mg/dL Normal 0-0.2 [facility] Comment on above: Performed By: #### L [id number] #### [facility] ([facility]) [address] [place] [address] CBC WITH AUTO DIFFERENTIALon 07-09-2023 Basophils (Bld) [#/Vol] 0.03 10*3/uL Normal 0.00-0.20 [facility] Comment on above: Performed By: #### L [id number] ####[facility] ([facility])[address] [place] [address] Basophils/100 WBC (Bld) 0.4 % Normal 0.0-1.0 [facility] Comment on above: Performed By: #### L [id number] ####[facility] ([facility])[address] [place] [address] Eosinophils (Bld) [#/Vol] 0.16 10*3/uL Normal 0.00-0.50 [facility] Comment on above: Performed By: #### L [id number] ####[facility] ([facility])[address] [place] [address] Eosinophils/100 WBC (Bld) 1.9 % Normal 0.0-6.0 [facility] Comment on above: Performed By: #### L [id number] ####[facility] ([facility])[address] [place] [address] Erythrocyte distribution width (RBC) [Ratio] 14.0 % Normal 11.5-15.0 [facility] Comment on above: Performed By: #### L [id number] ####[facility] [place] [address] ERYTHROCYTE MEAN CORPUSCULAR HEMOGLOBIN CONCENTRATION (G/DL) BY AUTOMATED 34.4 g/dL Normal 32.0-35.0 [facility] Comment on above: Performed By: #### L [id number] ####[facility] ([facility])[address] [place] [address] Hematocrit (Bld) [Volume fraction] 32.3 % Low 39.0-55.0 [facility] Comment on above: Performed By: #### L [id number] ####[facility] ([facility])[address] [place] [address] Hemoglobin (Bld) [Mass/Vol] 11.1 g/dL Low 13.0-17.0 [facility] Comment on above: Performed By: #### L [id number] ####[facility] ([facility])[address] [place] [address] Immature granulocytes (Bld) [#/Vol] 0.05 10*3/uL Normal 0.00-0.20 [facility] Comment on above: Performed By: #### L [id number] ####[facility] ([facility] [place] [address] Immature granulocytes/100 WBC (Bld) 0.6 % Normal 0.0-1.0 [facility] Comment on above: Performed By: #### L [id number] ####[facility] ([facility])[address] [place] [address] Lymphocytes (Bld) [#/Vol] 1.08 10*3/uL Low 1.20-4.00 [facility] Comment on above: Performed By: #### L [id number] ####[facility] [place] [address] Lymphocytes/100 WBC (Bld) 12.7 % Low 20.0-45.0 [facility] Comment on above: Performed By: #### L [id number] ####[facility] [place] [address] MCH (RBC) [Entitic mass] 30.0 pg Normal 27.0-33.0 [facility] Comment on above: Performed By: #### L [id number] ####[facility] ([facility] [place] [address] MCV (RBC) [Entitic vol] 87.3 fL Normal 82.0-98.0 [facility] Comment on above: Performed By: #### L [id number] ####[facility] [place] [address] Monocytes (Bld) [#/Vol] 0.67 10*3/uL Normal 0.10-1.00 [facility] Comment on above: Performed By: #### L [id number] ####[facility] ([facility])[address] [place] [address] Monocytes/100 WBC (Bld) 7.9 % Normal 5.0-12.0 [facility] Comment on above: Performed By: #### L [id number] ####[facility] ([facility])[address] [place] [address] Neutrophils (Bld) [#/Vol] 6.49 10*3/uL Normal 1.60-7.60 [facility] Comment on above: Performed By: #### L [id number] ####[facility] ([facility])[address] [place] [address] Neutrophils/100 WBC (Bld) 76.5 % High 40.0-72.0 [facility] Comment on above: Performed By: #### L [id number] ####[facility] ([facility])[address] [place] [address] NRBC (PER 100 WBCS) BY AUTOMATED COUNT 0.0 % Normal 0 [facility] Comment on above: Performed By: #### L [id number] ####[facility] ([facility])[address] [place] [address] PLATELETS (10*3/UL) IN BLOOD AUTOMATED COUNT 271 10*3/uL Normal 150-400 [facility] Comment on above: Performed By: #### L [id number] ####[facility] ([facility])[address] [place] [address] RBC (Bld) [#/Vol] 3.70 10*6/uL Low 4.20-5.70 [facility] Comment on above: Performed By: #### L [id number] ####[facility] ([facility])[address] [place] [address] WBC (Bld) [#/Vol] 8.48 10*3/uL Normal 4.00-10.60 [facility] Comment on above: Performed By: #### L [id number] ####[facility] ([facility])[address] [place] [address] COMPREHENSIVE METABOLIC PANE Claudio 07-09-2023 Albumin [Mass/Vol] 4.4 g/dL Normal 3.5-5.7 [facility] Comment on above: Performed By: #### L [id number] #### [facility] ([facility]) [address] [place] [address] ALP [Catalytic activity/Vol] 82 U/L Normal 34-104 [facility] Comment on above: Performed By: #### L [id number] #### [facility] ([facility]) [address] [place] [address] ALT [Catalytic activity/Vol] 9 U/L Normal 7-52 [facility] Comment on above: Performed By: #### L [id number] #### [facility] ([facility] [address] [place] [address] Anion gap [Moles/Vol] 15 mmol/L Normal 7-20 [facility] Comment on above: Performed By: #### L [id number] #### [facility] ([facility]) [address] [place] [address] AST [Catalytic activity/Vol] 14 U/L Normal 13-39 [facility] Comment on above: Performed By: #### L [id number] #### [facility] ([facility]) [address] [place] [address] Bilirubin [Mass/Vol] 0.5 mg/dL Normal 0.3-1.0 [facility] Comment on above: Performed By: #### L [id number] #### [facility] ([facility] [address] [place] [address] Calcium [Mass/Vol] 9.1 mg/dL Normal 8.6-10.3 [facility] Comment on above: Performed By: #### L [id number] #### [facility] ([facility] [address] [place] [address] Chloride [Moles/Vol] 93 mmol/L Low 98-107 [facility] Comment on above: Performed By: #### L [id number] #### [facility] ([facility] [address] [place] [address] CO2 [Moles/Vol] 22 mmol/L Normal 21-31 [facility] Comment on above: Performed By: #### L [id number] #### [facility] ([facility] [address] [place] [address] Creatinine [Mass/Vol] 1.01 mg/dL Normal 0.70-1.30 [facility] Comment on above: Performed By: #### L [id number] #### [facility] ([facility] [address] [place] [address] GLOMERULAR FILTRATION RATE ML/MIN/1.73 SQ M.PREDICTED 79.5 mL/min/1.73m*2 Normal >60.0 [facility] Comment on above: Result Comment: [facility]???s estimated glomerular filtration rate (eGFR) will [...] individuals. Performed By: #### L [id number] #### [facility] ([facility]) [address] [place] [address] Glucose [Mass/Vol] 86 mg/dL Normal 70-100 [facility] Comment on above: Performed By: #### L [id number] #### [facility] ([facility]) [address] [place] [address] Potassium [Moles/Vol] 5.2 mmol/L High 3.5-5.1 [facility] Comment on above: Performed By: #### L [id number] #### [facility] ([facility]) [address] [place] [address] Protein [Mass/Vol] 6.8 g/dL Normal 6.0-8.3 [facility] Comment on above: Performed By: #### L [id number] #### [facility] ([facility]) [address] [place] [address] Sodium [Moles/Vol] 125 mmol/L Low 136-145 [facility] Comment on above: Performed By: #### L [id number] #### [facility] ([facility] [address] [place] [address] Urea nitrogen [Mass/Vol] 17 mg/dL Normal 7-25 [facility] Comment on above: Performed By: #### L [id number] #### [facility] ([facility]) [address] [place] [address] UREA NITROGEN/CREATININE (MASS RATIO) IN SER/PLAS 16.8 Normal [facility] Comment on above: Performed By: #### L [id number] #### [facility] ([facility] [address] [place] [address] Follow-Upon 07-09-2023 Follow-Up [id number] KerrRoger 1950 M Date Provider Department Center 07/09/2023 [id number] MENDEZ TXP None Family History Problem Relation Age of Onset Diabetes Mother Hypertension Mother Coronary artery disease Mother Other Mother Cystic kidney disease Mother Hypertension Father Skin cancer Father Cystic kidney disease Father Cystic kidney disease Sister Heart disease Brother ALS Brother Cystic kidney disease Brother Family Status - Relation Status Age at Mother Father Sister Brother Level of Service:58830 MA OFFICE/OUTPATIENT ESTABLISHED LOW MDM 20 MIN Reason for Visit and Comments: Kidney Follow-up [] - Patient has no major concerns today Normal [facility] HEMOGLOBIN A1Con 07-09-2023 Glucose [Mass/Vol] 160 mg/dL Normal [facility] Comment on above: Performed By: #### L AB90 ####[facility] ([facility])[address] [place] [address] HbA1c (Bld) [Mass fraction] 7.2 % High 4.0-6.0 [facility] Comment on above: Performed By: #### L AB90 ####[facility] ([facility] [place] [address] Labon 07-09-2023 Lab [id number] KerrRosasRoger E 1950 M Date Provider Department Center 07/09/2023 [id number] DRAW STATION KXT Draw [facility] Family History Problem Relation Age of Onset Diabetes Mother Hypertension Mother Coronary artery disease Mother Other Mother Cystic kidney disease Mother Hypertension Father Skin cancer Father Cystic kidney disease Father Cystic kidney disease Sister Heart disease Brother ALS Brother Cystic kidney disease Brother Family Status - Relation Status Age at Mother Father Sister Brother Normal [facility] MAGNESIUMon 07-09-2023 Magnesium [Mass/Vol] 1.5 mg/dL Low 1.9-2.7 [facility] Comment on above: Performed By: #### L [id number] ####[facility] ([facility])[address] [place] [address] OSMOLALITYon 07-09-2023 OSMOLALITY MEASURED 272 mOsm/kg Low 275-295 [facility] Comment on above: Result Comment: Test Performed by [employer] [address] [place] [address] - Released 07/09/2023 16:01 Performed By: #### L [id number] #### [facility] [address] [place] [address] Orders Onlyon 07-09-2023 Orders Only [id number] Roger Kerr 1950 M Date Provider Department Center 07/09/2023 Benji3LAQUITA DUGAN TXP None Family History Problem Relation Age of Onset Diabetes Mother Hypertension Mother Coronary artery disease Mother Other Mother Cystic kidney disease Mother Hypertension Father Skin cancer Father Cystic kidney disease Father Cystic kidney disease Sister Heart disease Brother ALS Brother Cystic kidney disease Brother Family Status - Relation Status Age at Mother Father Sister Brother Normal [facility] PHOSPHORUSon 07-09-2023 Magnesium [Mass/Vol] 4.6 mg/dL Normal 2.5-5.0 [facility] Comment on above: Performed By: #### L [id number] #### [facility] ([facility]) [address] [place] [address] TACROLIMUS LEVELon Tacrolimus (Bld) [Mass/Vol] 4.3 ng/mL Low 5.0-20.0 [facility] Comment on above: Result Comment: The [employer] Tacrolimus assay is a delayed one-step immunoassay for the quantitative determination of tacrolimus in human whole blood using the chemiluminescent microparticle immunoassay (CMIA) technology with flexible assay protocols, referred to as Chemiflex. Performed By: #### L [id number] #### [facility] ([facility]) [address] [place] [address] URIC ACIDon 07-09-2023 Magnesium [Mass/Vol] 6.2 mg/dL Normal 4.4-7.6 [facility] Comment on above: Performed By: #### L [id number] #### [facility] ([facility]) [address] [place] [address] Orders Onlyon 06-11-2023 Orders Only [id number] Roger Kerr Tyson 1950 M Date Provider Department Center 06/11/2023 [facility]ERICHO MO[facility] Family History Problem Relation Age of Onset Diabetes Mother Hypertension Mother Coronary artery disease Mother Other Mother Cystic kidney disease Mother Hypertension Father Skin cancer Father Cystic kidney disease Father Cystic kidney disease Sister Heart disease Brother ALS Brother Cystic kidney disease Brother Family Status - Relation Status Age at Mother Father Sister Brother Normal [facility] FK506 (TACROLIMUS) WHOLE BLO ODon 10-06-2022 Tacrolimus (FK506), Blood 3.8 ng/mL Normal 2.0-20.[address] [facility] Comment on above: Result Comment: Trou gh (immediately following transplant) 15.0 . Trough (steady state, 2 weeks or more after transplant): 3.0 - 8.0 . Performed by LC-MS/MS technology. Performed By: #### U CLINT, CMP, LIPID, DBIL, PHOS, MG #### [facility] [address] [place] [address] Dr. Brea Causey BILIRUBIN CONJUGATED (DIRECT )on 10-03-2022 BILI, CONJUGATED 0.1 mg/dL Normal 0.0-0.2 [facility] Comment on above: Performed By: #### C BC #### [facility] [address] [place] [address] Dr. Brea Causey CBC AUTO DIFFon 10-03-2022 BASO # 0.0 103/ul Normal 0.0-0.[address] [facility] Comment on above: Performed By: #### U CLINT, CMP, LIPID, DBIL, PHOS, MG #### [facility] [address] [place] [address] Dr. Brea Causey Basophils/100 WBC (Bld) 0.5 % Normal 0.2-2.[address] [facility] Comment on above: Performed By: #### U CLINT, CMP, LIPID, DBIL, PHOS, MG #### [facility] [address] [place] [address] Dr. Brea Causey EO # 0.1 103/ul Normal 0.0-0.[address] [facility] Comment on above: Performed By: #### U CLINT, CMP, LIPID, DBIL, PHOS, MG #### [facility] [address] [place] [address] [address] Brea Causey Eosinophils/100 WBC (Bld) 2.3 % Normal 0.9-7.0 [facility] Comment on above: Performed By: #### U CLINT, CMP, LIPID, DBIL, PHOS, MG #### [facility] [address] [address] [address] Brea Causey Erythrocyte distribution width (RBC) [Ratio] 13.2 % Normal 11.0-15.0 [facility] Comment on above: Performed By: #### U CLINT, CMP, LIPID, DBIL, PHOS, MG #### [facility] [address] [place] [address] Dr. Brea Causey Hematocrit (Bld) [Volume fraction] 35.0 % Critically low 42.0-54.0 [facility] Comment on above: Performed By: #### U CLINT, CMP, LIPID, DBIL, PHOS, MG #### [facility] [address] [place] [address] Dr. Brea Causey Hemoglobin (Bld) [Mass/Vol] 11.7 g/dL Critically low 14.0-18.0 [facility] Comment on above: Performed By: #### U CLINT, CMP, LIPID, DBIL, PHOS, MG #### [facility] [address] [address] [address] Brea Causey IG # 0.06 10e3/ul Critically high 0.00-0.03 [facility] Comment on above: Performed By: #### U CLINT, CMP, LIPID, DBIL, PHOS, MG #### [facility] [address] [address] [address] Brea Causey IG % 1.1 % Critically high 0.0-0.5 [facility] Comment on above: Performed By: #### U CLINT, CMP, LIPID, DBIL, PHOS, MG #### [facility] [address] [place] [address] Dr. Brea Causey LYMPH # 0.8 103/ul Critically low 1.2-3.8 [facility] Comment on above: Performed By: #### U CLINT, CMP, LIPID, DBIL, PHOS, MG #### [facility] [address] [place] [address] Dr. Brea Causey Lymphocytes/100 WBC (Bld) 14.9 % Critically low 20.5-60.[address] [facility] Comment on above: Performed By: #### U CLINT, CMP, LIPID, DBIL, PHOS, MG #### [facility] [address] [place] [address] Dr. Brea Causey MANUAL DIFF REQ NO Normal [facility] Comment on above: Performed By: #### U CLINT, CMP, LIPID, DBIL, PHOS, MG #### [facility] [address] [place] [address] Dr. Brea Causey MCH (RBC) [Entitic mass] 28.8 pg Normal 25.9-34.0 [facility] Comment on above: Performed By: #### U CLINT, CMP, LIPID, DBIL, PHOS, MG #### [facility] [address] [place] [address] Dr. Brea Causey MCHC (RBC) [Mass/Vol] 33.4 g/dL Normal 29.9-35.[address] [facility] Comment on above: Performed By: #### U CLINT, CMP, LIPID, DBIL, PHOS, MG #### [facility] [address] [place] [address] Dr. Brea Causey MCV (RBC) [Entitic vol] 86.2 fL Normal 80.0-94.[address] [facility] Comment on above: Performed By: #### U CLINT, CMP, LIPID, DBIL, PHOS, MG #### [facility] [address] [place] [address] Dr. Brae Causey MONO # 0.5 103/ul Normal 0.3-0.8 [facility] Comment on above: Performed By: #### U CLINT, CMP, LIPID, DBIL, PHOS, MG #### [facility] [address] [address] [address] Brea Causey Monocytes/100 WBC (Bld) 9.1 % Normal 1.7-12.[address] [facility] Comment on above: Performed By: #### U CLINT, CMP, LIPID, DBIL, PHOS, MG #### [facility] [address] [place] [address] Dr. Brea Causey NEUT # 4.1 103/ul Normal 1.4-6.[address] [facility] Comment on above: Performed By: #### U CLINT, CMP, LIPID, DBIL, PHOS, MG #### [facility] [address] [place] [address] Dr. Brea Causey Neutrophils/100 WBC (Bld) 72.1 % Normal 43.0-75.0 [facility] Comment on above: Performed By: #### U CLINT, CMP, LIPID, DBIL, PHOS, MG #### [facility] [address] [place] [address] Dr. Brea Causey Platelet mean volume (Bld) [Entitic vol] 9.0 fL Critically low 9.5-13.5 [facility] Comment on above: Performed By: #### U CLINT, CMP, LIPID, DBIL, PHOS, MG #### [facility] [address] [place] [address] Dr. Brea Causey PLT 211 103/ul Normal 150-[address] [facility] Comment on above: Performed By: #### U CLINT, CMP, LIPID, DBIL, PHOS, MG #### [facility] [address] [place] [address] Dr. Brea Causey RBC 4.06 106/ul Critically low 4.70-6.10 [facility] Comment on above: Performed By: #### U CLINT, CMP, LIPID, DBIL, PHOS, MG #### [facility] [address] [place] [address] Dr. rBea Causey WBC 5.6 103/ul Normal 4.0-11.[address] [facility] Comment on above: Performed By: #### U CLINT, CMP, LIPID, DBIL, PHOS, MG #### [facility] [id number] Brea Causey LIPID PROFILEon 10-03-2022 CHOL-HDL RATIO NORM SEE BELOW Normal [facility] Comment on above: Result Comment: 3.3 - 4.4 LOW RISK 4.4 - 7.1 AVERAGE RISK 7.1 - 11.0 MODERATE RISK >11.0 HIGH RISK Performed By: #### C BC #### [facility] [address] [address] [address] Brea Causey Cholesterol [Mass/Vol] 93 mg/dL Normal <=200 [facility] Comment on above: Performed By: #### C BC #### [facility] [address] [address] [address] Brea Causey Cholesterol in HDL [Mass/Vol] 43 mg/dL Normal 40-60 [facility] Comment on above: Performed By: #### C BC #### [facility] [address] [address] [address] Brea Causey Cholesterol in LDL [Mass/Vol] 37.6 mg/dL Normal [facility] Comment on above: Performed By: #### C BC #### [facility] [address] [address] [address] Brea Causey Cholesterol.total/Chol esterol in HDL [Mass ratio] 2.2 {ratio} Normal [facility] Comment on above: Performed By: #### C BC #### [facility] [id number] Brea Causey HDL NORMAL > or = 60 mg/dl - LO W CARDIOVASCULAR RISK <40 mg/dl - HIGH CARDIOVASCULAR RISK Normal [facility] Comment on above: Performed By: #### C BC #### [facility] [id number] Brea Causey LDL CALC NORMAL SEE BELOW Normal [facility] Comment on above: Result Comment: <100 mg/dl OPTIMAL 100 - 129 mg/dl NEAR OR ABOVE OPTIMAL 130 - 159 mg/dl BORDERLINE HIGH 160 - 189 mg/dl HIGH >190 mg/dl VERY HIGH Performed By: #### C BC #### [facility] [address] [address] [address] Brea Causey Triglyceride [Mass/Vol] 62 mg/dL Normal <=150 [facility] Comment on above: Performed By: #### C BC #### [facility] [address] [place] [address] Dr. Brea Causey VLDL CALC 12.4 mg/dL Normal [facility] Comment on above: Performed By: #### C BC #### [facility] [address] [place] [address] Dr. Brea Causey MAGNESIUMon 10-03-2022 Magnesium [Mass/Vol] 1.5 mg/dL Critically low 1.8-2.4 [facility] Comment on above: Performed By: #### C BC #### [facility] [address] [place] [address] Dr. Brea Causey PHOSPHORUSon 10-03-2022 Phosphate [Mass/Vol] 4.4 mg/dL Normal 2.6-4.7 [facility] Comment on above: Performed By: #### C BC #### [facility] [address] [place] [address] Dr. Brea Causey PROF 14(COMP METB)on 023 Albumin [Mass/Vol] 3.8 g/dL Normal 3.4-5.0 [facility] Comment on above: Performed By: #### C BC #### [facility] [address] [place] [address] Dr. Brea Causey Albumin/Globulin [Mass ratio] 1.1 {ratio} Normal [facility] Comment on above: Performed By: #### C BC #### [facility] [address] [place] [address] Dr. Brea Causey ALP [Catalytic activity/Vol] 190 U/L Critically high 46-[address] [facility] Comment on above: Performed By: #### C BC #### [facility] [address] [place] [address] Dr. Brea Causey ALT [Catalytic activity/Vol] 26 U/L Normal 16-63 [facility] Comment on above: Performed By: #### C BC #### [facility] [address] [address] [address] Brea Causey Anion gap [Moles/Vol] 15.3 mmol/L Normal [facility] Comment on above: Performed By: #### C BC #### [facility] [address] [place] [address] Dr. Brea Causey AST [Catalytic activity/Vol] 23 U/L Normal 15-37 [facility] Comment on above: Performed By: #### C BC #### [facility] [address] [address] [address] Brea Causey Bilirubin [Mass/Vol] 0.4 mg/dL Normal 0.2-1.0 [facility] Comment on above: Performed By: #### C BC #### [facility] [address] [place] [address] Dr. Brea Causey Calcium [Mass/Vol] 7.8 mg/dL Critically low 8.5-10.1 [facility] Comment on above: Performed By: #### C BC #### [facility] [address] [place] [address] Dr. Brea Causey Chloride [Moles/Vol] 97 mmol/L Critically low 98-107 [facility] Comment on above: Performed By: #### C BC #### [facility] [address] [place] [address] Dr. Brea Causey CO2 [Moles/Vol] 25.6 mmol/L Normal 21.0-32.0 [facility] Comment on above: Performed By: #### C BC #### [facility] [address] [place] [address] Dr. Brea Causey Creatinine [Mass/Vol] 1.03 mg/dL Normal 0.70-1.30 [facility] Comment on above: Performed By: #### C BC #### [facility] [address] [place] [address] Dr. Brea Causey EGFR-AF NIGERIAN >60 Normal >=60 [facility] Comment on above: Performed By: #### C BC #### [facility] [address] [place] [address] Dr. Brea Causey EGFR-NON AF NIGERIAN >60 Normal >=60 [facility] Comment on above: Performed By: #### C BC #### [facility] [address] [place] [address] Dr. Brea Causey Globulin (S) [Mass/Vol] 3.6 g/dL Normal [facility] Comment on above: Performed By: #### C BC #### [facility] [address] [address] [address] Brea Causey Glucose [Mass/Vol] 188 mg/dL Critically high 74-106 [facility] Comment on above: Performed By: #### C BC #### [facility] [address] [place] [address] Dr. Brea Causey Potassium [Moles/Vol] 4.9 mmol/L Normal 3.5-5.1 [facility] Comment on above: Performed By: #### C BC #### [facility] [address] [place] [address] Dr. Brea Causey Protein [Mass/Vol] 7.4 g/dL Normal 6.4-8.2 [facility] Comment on above: Performed By: #### C BC #### [facility] [address] [place] [address] Dr. Brea Causey Sodium [Moles/Vol] 133 mmol/L Critically low 136-145 [facility] Comment on above: Performed By: #### C BC #### [facility] [address] [place] [address] Dr. Brea Causey Urea nitrogen [Mass/Vol] 11.0 mg/dL Normal 7.0-18.0 [facility] Comment on above: Performed By: #### C BC #### [facility] [address] [place] [address] Dr. Brea Causey Urea nitrogen/Creatinine [Mass ratio] 10.7 mg/mg Normal [facility] Comment on above: Performed By: #### C BC #### [facility] [address] [place] [address] Dr. Brea Causey URIC ACID SERUMon 10-03-2022 Urate [Mass/Vol] 5.7 mg/dL Normal 3.5-7.2 [facility] Comment on above: Performed By: #### C BC #### [facility] [address] [place] [address] Dr. Brea Causey BK VIRUS PCR QUANTon 023 BKV DNA QUANT PCR PLASMA Negative Normal Negative [facility] Comment on above: Result Comment: No B K DNA detected. . The linear range of the assay is 22 - 100,000,000 IU/mL. Performed By: #### U CLINT, CMP, LIPID, DBIL, PHOS, MG #### [facility] [address] [address] [address] Brea Causey Log10 BKV DNA Plasma Normal [facility] Comment on above: Performed By: #### U CLINT, CMP, LIPID, DBIL, PHOS, MG #### [facility] [address] [place] [address] Dr. Brea Causey FK506 (TACROLIMUS) WHOLE BLO ODon 09-02-2022 Tacrolimus (FK506), Blood 3.8 ng/mL Normal 2.0-20.0 [facility] Comment on above: Result Comment: Trou gh (immediately following transplant) 15.0 . Trough (steady state, 2 weeks or more after transplant): 3.0 - 8.0 . Performed by LC-MS/MS technology. Performed By: #### U CLINT, CMP, LIPID, DBIL, PHOS, MG #### [facility] [address] [place] [address] Dr. Brea Causey TESTOSTERONE, FREE,DIRECT, T OTALon 09-01-2022 Free Testosterone(Direct) 9.7 pg/mL Normal 6.6-18.1 [facility] Comment on above: Result Comment: Perf ormed at: BN Performed By: #### U CLINT, CMP, LIPID, DBIL, PHOS, MG #### [facility] [address] [place] [address] Dr. Brea Causey Testosterone [Mass/Vol] 565 ng/dL Normal 264-916 [facility] Comment on above: Result Comment: Adul t male reference interval is based on a population of healthy nonobese males (BMI <30) between 19 and 39 years old. daniel Harris.al. JCEM 2017,102;1225-1210. PMID: [id number]. Performed at: CB Performed By: #### U CLINT, CMP, LIPID, DBIL, PHOS, MG #### [facility] [address] [address] [address] Brea Causey BILIRUBIN CONJUGATED (DIRECT )on 08-30-2022 BILI, CONJUGATED 0.1 mg/dL Normal 0.0-0.2 [facility] Comment on above: Performed By: #### U CLINT, CMP, LIPID, DBIL, PHOS, MG #### [facility] [address] [address] [address] Brea Causey CBC AUTO DIFFon 08-30-2022 BASO # 0.0 103/ul Normal 0.0-0.1 [facility] Comment on above: Performed By: #### U CLINT, CMP, LIPID, DBIL, PHOS, MG #### [facility] [address] [address] [address] Brea Causey Basophils/100 WBC (Bld) 0.7 % Normal 0.2-2.0 [facility] Comment on above: Performed By: #### U CLINT, CMP, LIPID, DBIL, PHOS, MG #### [facility] [address] [place] [address] Dr. Brea Causey EO # 0.2 103/ul Normal 0.0-0.[address] [facility] Comment on above: Performed By: #### U CLINT, CMP, LIPID, DBIL, PHOS, MG #### [facility] [address] [address] [address] Brea Causey Eosinophils/100 WBC (Bld) 3.6 % Normal 0.9-7.[address] [facility] Comment on above: Performed By: #### U CLINT, CMP, LIPID, DBIL, PHOS, MG #### [facility] [address] [place] [address] Dr. Brea Causey Erythrocyte distribution width (RBC) [Ratio] 13.2 % Normal 11.0-15.0 [facility] Comment on above: Performed By: #### U CLINT, CMP, LIPID, DBIL, PHOS, MG #### [facility] [address] [address] [address] Brea Causey Hematocrit (Bld) [Volume fraction] 36.0 % Critically low 42.0-54.0 [facility] Comment on above: Performed By: #### U CLINT, CMP, LIPID, DBIL, PHOS, MG #### [facility] [address] [address] [address] Brea Causey Hemoglobin (Bld) [Mass/Vol] 12.2 g/dL Critically low 14.0-18.0 [facility] Comment on above: Performed By: #### U CLINT, CMP, LIPID, DBIL, PHOS, MG #### [facility] [address] [place] [address] Dr. Brea Causey IG # 0.07 10e3/ul Critically high 0.00-0.03 [facility] [place] Comment on above: Performed By: #### U CLINT, CMP, LIPID, DBIL, PHOS, MG #### [facility] [address] [place] [address] Dr. Brea Causey IG % 1.2 % Critically high 0.0-0.5 [facility] Comment on above: Performed By: #### U CLINT, CMP, LIPID, DBIL, PHOS, MG #### [facility] [address] [place] [address] Dr. Brea Causey LYMPH # 0.9 103/ul Critically low 1.2-3.8 [facility] Comment on above: Performed By: #### U CLINT, CMP, LIPID, DBIL, PHOS, MG #### [facility] [address] [address] [address] Brea Causey Lymphocytes/100 WBC (Bld) 15.0 % Critically low 20.5-60.0 [facility] Comment on above: Performed By: #### U CLINT, CMP, LIPID, DBIL, PHOS, MG #### [facility] [address] [place] [address] Dr. Brea Causey MANUAL DIFF REQ NO Normal [facility] Comment on above: Performed By: #### U CLINT, CMP, LIPID, DBIL, PHOS, MG #### [facility] [address] [place] [address] Dr. Brea Causey MCH (RBC) [Entitic mass] 29.4 pg Normal 25.9-34.[address] [facility] Comment on above: Performed By: #### U CLINT, CMP, LIPID, DBIL, PHOS, MG #### [facility] [address] [place] [address] Dr. Brea Causey MCHC (RBC) [Mass/Vol] 33.9 g/dL Normal 29.9-35.[address] [facility] Comment on above: Performed By: #### U CLINT, CMP, LIPID, DBIL, PHOS, MG #### [facility] [address] [place] [address] Dr. Brea Causey MCV (RBC) [Entitic vol] 86.7 fL Normal 80.0-94.0 [facility] Comment on above: Performed By: #### U CLINT, CMP, LIPID, DBIL, PHOS, MG #### [facility] [address] [place] [address] Dr. Brea Causey MONO # 0.5 103/ul Normal 0.3-0.8 [facility] Comment on above: Performed By: #### U CLINT, CMP, LIPID, DBIL, PHOS, MG #### [facility] [address] [place] [address] Dr. Brea Causey Monocytes/100 WBC (Bld) 9.0 % Normal 1.7-12.0 [facility] Comment on above: Performed By: #### U CLINT, CMP, LIPID, DBIL, PHOS, MG #### [facility] [address] [place] [address] Dr. Brea Causey NEUT # 4.2 103/ul Normal 1.4-6.5 [facility] Comment on above: Performed By: #### U CLINT, CMP, LIPID, DBIL, PHOS, MG #### [facility] [address] [place] [address] Dr. Brea Causey Neutrophils/100 WBC (Bld) 70.5 % Normal 43.0-75.0 [facility] Comment on above: Performed By: #### U CLINT, CMP, LIPID, DBIL, PHOS, MG #### [facility] [address] [address] [address] Brea Causey Platelet mean volume (Bld) [Entitic vol] 8.7 fL Critically low 9.5-13.5 [facility] Comment on above: Performed By: #### U CLINT, CMP, LIPID, DBIL, PHOS, MG #### [facility] [address] [address] [address] Brea Causey PLT 247 103/ul Normal 150-450 [facility] Comment on above: Performed By: #### U CLINT, CMP, LIPID, DBIL, PHOS, MG #### [facility] [address] [address] [address] Brea Causey RBC 4.15 106/ul Critically low 4.70-6.10 [facility] Comment on above: Performed By: #### U CLINT, CMP, LIPID, DBIL, PHOS, MG #### [facility] [address] [address] [address] Brea Causey WBC 5.9 103/ul Normal 4.0-11.0 [facility] Comment on above: Performed By: #### U CLINT, CMP, LIPID, DBIL, PHOS, MG #### [facility] [address] [address] [address] Brea Causey GLYCOHEMOGLOBIN A1Con 2022 ADA RECOMMENDATION SEE BELOW Normal [facility] Comment on above: Result Comment: ADA RECOMMENDED LIMIT 4.0 - 6.0 ADA THERAPEUTIC TARGET < 7.0 ACTION SUGGESTED > 7.0 Performed By: #### U CLINT, CMP, LIPID, DBIL, PHOS, MG #### [facility] [address] [address] [address] Brea Causey Glucose [Mass/Vol] 177 mg/dL Normal [facility] Comment on above: Performed By: #### U CLINT, CMP, LIPID, DBIL, PHOS, MG #### [facility] [address] [address] [address] Brea Causey HbA1c (Bld) [Mass fraction] 7.8 % Critically high 4.5-6.2 [facility] Comment on above: Performed By: #### U CLINT, CMP, LIPID, DBIL, PHOS, MG #### [facility] [address] [place] [address] Dr. Brea Causey LIPID PROFILEon 08-30-2022 CHOL-HDL RATIO NORM SEE BELOW Normal [facility] Comment on above: Result Comment: 3.3 - 4.4 LOW RISK 4.4 - 7.1 AVERAGE RISK 7.1 - 11.0 MODERATE RISK >11.0 HIGH RISK Performed By: #### U CLINT, CMP, LIPID, DBIL, PHOS, MG #### [facility] [address] [place] [address] Dr. Brea Causey Cholesterol [Mass/Vol] 96 mg/dL Normal <=200 [facility] Comment on above: Performed By: #### U CLINT, CMP, LIPID, DBIL, PHOS, MG #### [facility] [address] [place] [address] Dr. Brea Causey Cholesterol in HDL [Mass/Vol] 48 mg/dL Normal 40-60 [facility] Comment on above: Performed By: #### U CLINT, CMP, LIPID, DBIL, PHOS, MG #### [facility] [address] [place] [address] Dr. Brea Causey Cholesterol in LDL [Mass/Vol] 40.2 mg/dL Normal [facility] Comment on above: Performed By: #### U CLINT, CMP, LIPID, DBIL, PHOS, MG #### [facility] [address] [place] [address] Dr. Brea Causey Cholesterol.total/Chol esterol in HDL [Mass ratio] 2.0 {ratio} Normal [facility] Comment on above: Performed By: #### U CLINT, CMP, LIPID, DBIL, PHOS, MG #### [facility] [address] [place] [address] Dr. Brea Causey HDL NORMAL > or = 60 mg/dl - LO W CARDIOVASCULAR RISK <40 mg/dl - HIGH CARDIOVASCULAR RISK Normal [facility] Comment on above: Performed By: #### U CLINT, CMP, LIPID, DBIL, PHOS, MG #### [facility] [address] [address] [address] Brea Causey LDL CALC NORMAL SEE BELOW Normal [facility] Comment on above: Result Comment: <100 mg/dl OPTIMAL 100 - 129 mg/dl NEAR OR ABOVE OPTIMAL 130 - 159 mg/dl BORDERLINE HIGH 160 - 189 mg/dl HIGH >190 mg/dl VERY HIGH Performed By: #### U CLINT, CMP, LIPID, DBIL, PHOS, MG #### [facility] [address] [address] [address] Brea Causey Triglyceride [Mass/Vol] 39 mg/dL Normal <=[address] [facility] Comment on above: Performed By: #### U CLINT, CMP, LIPID, DBIL, PHOS, MG #### [facility] [address] [address] [address] Brea Causey VLDL CALC 7.8 mg/dL Normal [facility] Comment on above: Performed By: #### U CLINT, CMP, LIPID, DBIL, PHOS, MG #### [facility] [address] [address] [address] Brea Causey MAGNESIUMon 08-30-2022 Magnesium [Mass/Vol] 1.5 mg/dL Critically low 1.8-2.[address] [facility] Comment on above: Performed By: #### U CLINT, CMP, LIPID, DBIL, PHOS, MG #### [facility] [address] [address] [address] Brea Causey PHOSPHORUSon 08-30-2022 Phosphate [Mass/Vol] 4.0 mg/dL Normal 2.6-4.[address] [facility] Comment on above: Performed By: #### U CLINT, CMP, LIPID, DBIL, PHOS, MG #### [facility] [address] [address] [address] Brea Causey PROF 14(COMP METB)on 023 Albumin [Mass/Vol] 3.8 g/dL Normal 3.4-5.0 [facility] Comment on above: Performed By: #### U CLINT, CMP, LIPID, DBIL, PHOS, MG #### [facility] [address] [place] [address] Dr. Brea Causey Albumin/Globulin [Mass ratio] 1.1 {ratio} Normal [facility] Comment on above: Performed By: #### U CLINT, CMP, LIPID, DBIL, PHOS, MG #### [facility] [address] [place] [address] Dr. Brea Causey ALP [Catalytic activity/Vol] 177 U/L Critically high 46-116 [facility] Comment on above: Performed By: #### U CLINT, CMP, LIPID, DBIL, PHOS, MG #### [facility] [address] [place] [address] Dr. Brea Causey ALT [Catalytic activity/Vol] 27 U/L Normal 16-63 [facility] Comment on above: Performed By: #### U CLINT, CMP, LIPID, DBIL, PHOS, MG #### [facility] [address] [place] [address] Dr. Brea Causey Anion gap [Moles/Vol] 12.1 mmol/L Normal [facility] Comment on above: Performed By: #### U CLINT, CMP, LIPID, DBIL, PHOS, MG #### [facility] [address] [place] [address] Dr. Brea Causey AST [Catalytic activity/Vol] 19 U/L Normal 15-37 [facility] Comment on above: Performed By: #### U CLINT, CMP, LIPID, DBIL, PHOS, MG #### [facility] [address] [place] [address] Dr. Brea Causey Bilirubin [Mass/Vol] 0.3 mg/dL Normal 0.2-1.0 [facility] Comment on above: Performed By: #### U CLINT, CMP, LIPID, DBIL, PHOS, MG #### [facility] [address] [place] [address] Dr. Brea Causey Calcium [Mass/Vol] 8.0 mg/dL Critically low 8.5-10.[address] [facility] Comment on above: Performed By: #### U CLINT, CMP, LIPID, DBIL, PHOS, MG #### [facility] [address] [address] [address] Brea Causey Chloride [Moles/Vol] 96 mmol/L Critically low 98-107 [facility] Comment on above: Performed By: #### U CLINT, CMP, LIPID, DBIL, PHOS, MG #### [facility] [address] [address] [address] Brea Causey CO2 [Moles/Vol] 28.0 mmol/L Normal 21.0-32.0 [facility] Comment on above: Performed By: #### U CLINT, CMP, LIPID, DBIL, PHOS, MG #### [facility] [address] [place] [address] Dr. Brea Causey Creatinine [Mass/Vol] 1.07 mg/dL Normal 0.70-1.30 [facility] Comment on above: Performed By: #### U CLINT, CMP, LIPID, DBIL, PHOS, MG #### [facility] [address] [place] [address] Dr. Brea Causey EGFR-AF NIGERIAN >60 Normal >=60 [facility] Comment on above: Performed By: #### U CLINT, CMP, LIPID, DBIL, PHOS, MG #### [facility] [address] [address] [address] Brea Causey EGFR-NON AF NIGERIAN >60 Normal >=60 [facility] Comment on above: Performed By: #### U CLINT, CMP, LIPID, DBIL, PHOS, MG #### [facility] [address] [place] [address] Dr. Brea Causey Globulin (S) [Mass/Vol] 3.5 g/dL Normal [facility] Comment on above: Performed By: #### U CLINT, CMP, LIPID, DBIL, PHOS, MG #### [facility] [address] [place] [address] Dr. Brea Causey Glucose [Mass/Vol] 179 mg/dL Critically high 74-106 [facility] Comment on above: Performed By: #### U CLINT, CMP, LIPID, DBIL, PHOS, MG #### [facility] [address] [place] [address] Dr. Brea Causey Potassium [Moles/Vol] 5.1 mmol/L Normal 3.5-5.1 [facility] Comment on above: Performed By: #### U CLINT, CMP, LIPID, DBIL, PHOS, MG #### [facility] [address] [address] [address] Brea Causey Protein [Mass/Vol] 7.3 g/dL Normal 6.4-8.2 [facility] Comment on above: Performed By: #### U CLINT, CMP, LIPID, DBIL, PHOS, MG #### [facility] [address] [place] [address] Dr. Brea Causey Sodium [Moles/Vol] 131 mmol/L Critically low 136-145 [facility] Comment on above: Performed By: #### U CLINT, CMP, LIPID, DBIL, PHOS, MG #### [facility] [address] [place] [address] Dr. Brea Causey Urea nitrogen [Mass/Vol] 10.0 mg/dL Normal 7.0-18.0 [facility] Comment on above: Performed By: #### U CLINT, CMP, LIPID, DBIL, PHOS, MG #### [facility] [address] [place] [address] Dr. Brea Causey Urea nitrogen/Creatinine [Mass ratio] 9.3 mg/mg Normal [facility] Comment on above: Performed By: #### U CLINT, CMP, LIPID, DBIL, PHOS, MG #### [facility] [address] [place] [address] Dr. Brea Causey URIC ACID SERUMon 08-30-2022 Urate [Mass/Vol] 6.0 mg/dL Normal 3.5-7.2 [facility] Comment on above: Performed By: #### U CLINT, CMP, LIPID, DBIL, PHOS, MG #### [facility] [address] [place] [address] Dr. Brea Causey FK506 (TACROLIMUS) WHOLE BLO ODon 08-03-2022 Tacrolimus (FK506), Blood 3.2 ng/mL Normal 2.0-20.0 [facility] Comment on above: Result Comment: Trou gh (immediately following transplant) 15.0 . Trough (steady state, 2 weeks or more after transplant): 3.0 - 8.0 . Performed by LC-MS/MS technology. Performed By: #### C BC #### [facility] [address] [place] [address] Dr. Brea Causey BILIRUBIN CONJUGATED (DIRECT )on 08-01-2022 BILI, CONJUGATED 0.1 mg/dL Normal 0.0-0.2 [facility] Comment on above: Performed By: #### U CLINT, CMP, LIPID, DBIL, PHOS, MG #### [facility] [address] [place] [address] Dr. Brea Causey CBC AUTO DIFFon 08-01-2022 BASO # 0.0 103/ul Normal 0.0-0.1 [facility] Comment on above: Performed By: #### C BC #### [facility] [address] [place] [address] Dr. Brea Causey Basophils/100 WBC (Bld) 0.7 % Normal 0.2-2.0 [facility] Comment on above: Performed By: #### C BC #### [facility] [address] [place] [address] Dr. Brea Causey EO # 0.1 103/ul Normal 0.0-0.[address] [facility] Comment on above: Performed By: #### C BC #### [facility] [address] [place] [address] Dr. Brea Causey Eosinophils/100 WBC (Bld) 2.4 % Normal 0.9-7.0 [facility] Comment on above: Performed By: #### C BC #### [facility] [address] [place] [address] Dr. Brea Causey Erythrocyte distribution width (RBC) [Ratio] 13.3 % Normal 11.0-15.0 [facility] Comment on above: Performed By: #### C BC #### [facility] [address] [place] [address] Dr. Brea Causey Hematocrit (Bld) [Volume fraction] 36.5 % Critically low 42.0-54.0 [facility] Comment on above: Performed By: #### C BC #### [facility] [address] [place] [address] Dr. Brea Causey Hemoglobin (Bld) [Mass/Vol] 12.1 g/dL Critically low 14.0-18.0 [facility] Comment on above: Performed By: #### C BC #### [facility] [address] [place] [address] Dr. Brea Cuasey IG # 0.07 10e3/ul Critically high 0.00-0.03 [facility] Comment on above: Performed By: #### C BC #### [facility] [address] [place] [address] Dr. Brea Causey IG % 1.2 % Critically high 0.0-0.5 [facility] Comment on above: Performed By: #### C BC #### [facility] [address] [place] [address] Dr. Brea Causey LYMPH # 0.9 103/ul Critically low 1.2-3.8 [facility] Comment on above: Performed By: #### C BC #### [facility] [address] [place] [address] Dr. Brea Causey Lymphocytes/100 WBC (Bld) 14.5 % Critically low 20.5-60.0 [facility] Comment on above: Performed By: #### C BC #### [facility] [address] [place] [address] Dr. Brea Causey MANUAL DIFF REQ NO Normal [facility] Comment on above: Performed By: #### C BC #### [facility] [address] [place] [address] Dr. Brea Causey MCH (RBC) [Entitic mass] 28.8 pg Normal 25.9-34.0 [facility] Comment on above: Performed By: #### C BC #### [facility] [address] [place] [address] Dr. Brea Causey MCHC (RBC) [Mass/Vol] 33.2 g/dL Normal 29.9-35.2 [facility] Comment on above: Performed By: #### C BC #### [facility] [address] [place] [address] Dr. Brae Causey MCV (RBC) [Entitic vol] 86.9 fL Normal 80.0-94.0 [facility] Comment on above: Performed By: #### C BC #### [facility] [address] [place] [address] Dr. Brea Causey MONO # 0.6 103/ul Normal 0.3-0.[address] [facility] Comment on above: Performed By: #### C BC #### [facility] [address] [place] [address] Dr. Brea Causey Monocytes/100 WBC (Bld) 10.3 % Normal 1.7-12.0 [facility] Comment on above: Performed By: #### C BC #### [facility] [address] [place] [address] Dr. Brea Causey NEUT # 4.2 103/ul Normal 1.4-6.[address] [facility] Comment on above: Performed By: #### C BC #### [facility] [address] [place] [address] Dr. Brea Causey Neutrophils/100 WBC (Bld) 70.9 % Normal 43.0-75.[address] [facility] Comment on above: Performed By: #### C BC #### [facility] [address] [place] [address] Dr. Brea Causey Platelet mean volume (Bld) [Entitic vol] 9.1 fL Critically low 9.5-13.5 [facility] Comment on above: Performed By: #### C BC #### [facility] [address] [place] [address] Dr. Brea Causey PLT 248 103/ul Normal 150-450 [facility] Comment on above: Performed By: #### C BC #### [facility] [address] [address] [address] Brea Causey RBC 4.20 106/ul Critically low 4.70-6.10 [facility] Comment on above: Performed By: #### C BC #### [facility] [address] [id number] Brea Causey WBC 5.9 103/ul Normal 4.0-11.0 [facility] Comment on above: Performed By: #### C BC #### [facility] [address] [address] [address] Brea Causey LIPID PROFILEon 08-01-2022 CHOL-HDL RATIO NORM SEE BELOW Normal [facility] Comment on above: Result Comment: 3.3 - 4.4 LOW RISK 4.4 - 7.1 AVERAGE RISK 7.1 - 11.0 MODERATE RISK >11.0 HIGH RISK Performed By: #### U CLINT, CMP, LIPID, DBIL, PHOS, MG #### [facility] [address] [address] [address] Brea Causey Cholesterol [Mass/Vol] 95 mg/dL Normal <=200 [facility] Comment on above: Performed By: #### U CLINT, CMP, LIPID, DBIL, PHOS, MG #### [facility] [address] [address] [address] Brea Causey Cholesterol in HDL [Mass/Vol] 49 mg/dL Normal 40-60 [facility] Comment on above: Performed By: #### U CLINT, CMP, LIPID, DBIL, PHOS, MG #### [facility] [address] [address] [address] Brea Causey Cholesterol in LDL [Mass/Vol] 35.4 mg/dL Normal [facility] Comment on above: Performed By: #### U CLINT, CMP, LIPID, DBIL, PHOS, MG #### [facility] [address] [address] [address] Brea Causey Cholesterol.total/Chol esterol in HDL [Mass ratio] 1.9 {ratio} Normal [facility] Comment on above: Performed By: #### U CLINT, CMP, LIPID, DBIL, PHOS, MG #### [facility] [address] [place] [address] Dr. Brea Causey HDL NORMAL > or = 60 mg/dl - LO W CARDIOVASCULAR RISK <40 mg/dl - HIGH CARDIOVASCULAR RISK Normal [facility] Comment on above: Performed By: #### U CLINT, CMP, LIPID, DBIL, PHOS, MG #### [facility] [address] [place] [address] Dr. Brea Causey LDL CALC NORMAL SEE BELOW Normal [facility] Comment on above: Result Comment: <100 mg/dl OPTIMAL 100 - 129 mg/dl NEAR OR ABOVE OPTIMAL 130 - 159 mg/dl BORDERLINE HIGH 160 - 189 mg/dl HIGH >190 mg/dl VERY HIGH Performed By: #### U CLINT, CMP, LIPID, DBIL, PHOS, MG #### [facility] [address] [place] [address] Dr. Brea Causey Triglyceride [Mass/Vol] 53 mg/dL Normal <=[address] [facility] Comment on above: Performed By: #### U CLINT, CMP, LIPID, DBIL, PHOS, MG #### [facility] [address] [place] [address] Dr. Brea Causey VLDL CALC 10.6 mg/dL Normal [facility] Comment on above: Performed By: #### U CLINT, CMP, LIPID, DBIL, PHOS, MG #### [facility] [address] [place] [address] Dr. Brea Causey MAGNESIUMon 08-01-2022 Magnesium [Mass/Vol] 1.5 mg/dL Critically low 1.8-2.[address] [facility] Comment on above: Performed By: #### U CLINT, CMP, LIPID, DBIL, PHOS, MG #### [facility] [address] [place] [address] Dr. Brea Causey PHOSPHORUSon 08-01-2022 Phosphate [Mass/Vol] 3.8 mg/dL Normal 2.6-4.[address] [facility] Comment on above: Performed By: #### U CLINT, CMP, LIPID, DBIL, PHOS, MG #### [facility] [address] [place] [address] Dr. Brea Causey PROF 14(COMP METB)on 023 Albumin [Mass/Vol] 4.1 g/dL Normal 3.4-5.0 [facility] Comment on above: Performed By: #### U CLINT, CMP, LIPID, DBIL, PHOS, MG #### [facility] [address] [address] [address] Brea Causey Albumin/Globulin [Mass ratio] 1.3 {ratio} Normal [facility] Comment on above: Performed By: #### U CLINT, CMP, LIPID, DBIL, PHOS, MG #### [facility] [address] [place] [address] Dr. Brea Causey ALP [Catalytic activity/Vol] 197 U/L Critically high 46-116 [facility] Comment on above: Performed By: #### U CLINT, CMP, LIPID, DBIL, PHOS, MG #### [facility] [address] [place] [address] Dr. Brea Causey ALT [Catalytic activity/Vol] 26 U/L Normal 16-63 [facility] Comment on above: Performed By: #### U CLINT, CMP, LIPID, DBIL, PHOS, MG #### [facility] [address] [place] [address] Dr. Brea Causey Anion gap [Moles/Vol] 12.6 mmol/L Normal [facility] Comment on above: Performed By: #### U CLINT, CMP, LIPID, DBIL, PHOS, MG #### [facility] [address] [place] [address] Dr. Brea Causey AST [Catalytic activity/Vol] 20 U/L Normal 15-37 [facility] Comment on above: Performed By: #### U CLINT, CMP, LIPID, DBIL, PHOS, MG #### [facility] [address] [place] [address] Dr. Brea Causey Bilirubin [Mass/Vol] 0.4 mg/dL Normal 0.2-1.0 [facility] Comment on above: Performed By: #### U CLINT, CMP, LIPID, DBIL, PHOS, MG #### [facility] [address] [address] [address] Brea Causey Calcium [Mass/Vol] 7.9 mg/dL Critically low 8.5-10.[address] [facility] Comment on above: Performed By: #### U CLINT, CMP, LIPID, DBIL, PHOS, MG #### [facility] [facility] [address] [address] [address] Brea Causey Chloride [Moles/Vol] 97 mmol/L Critically low 98-107 [facility] Comment on above: Performed By: #### U CLINT, CMP, LIPID, DBIL, PHOS, MG #### [facility] [address] [place] [address] Dr. Brea Causey CO2 [Moles/Vol] 28.9 mmol/L Normal 21.0-32.0 [facility] Comment on above: Performed By: #### U CLINT, CMP, LIPID, DBIL, PHOS, MG #### [facility] [address] [place] [address] Dr. Brea Causey Creatinine [Mass/Vol] 0.98 mg/dL Normal 0.70-1.30 [facility] Comment on above: Performed By: #### U CLINT, CMP, LIPID, DBIL, PHOS, MG #### [facility] [address] [address] [address] Brea Causey EGFR-AF NIGERIAN >60 Normal >=60 [facility] Comment on above: Performed By: #### U CLINT, CMP, LIPID, DBIL, PHOS, MG #### [facility] [address] [address] [address] Brea Causey EGFR-NON AF NIGERIAN >60 Normal >=[address] [facility] Comment on above: Performed By: #### U CLINT, CMP, LIPID, DBIL, PHOS, MG #### [facility] [address] [address] [address] Brea Causey Globulin (S) [Mass/Vol] 3.2 g/dL Normal [facility] Comment on above: Performed By: #### U CLINT, CMP, LIPID, DBIL, PHOS, MG #### [facility] [address] [place] [address] Dr. Brea Causey Glucose [Mass/Vol] 174 mg/dL Critically high 74-106 [facility] Comment on above: Performed By: #### U CLINT, CMP, LIPID, DBIL, PHOS, MG #### [facility] [address] [place] [address] Dr. Brea Causey Potassium [Moles/Vol] 4.5 mmol/L Normal 3.5-5.1 [facility] Comment on above: Performed By: #### U CLINT, CMP, LIPID, DBIL, PHOS, MG #### [facility] [address] [place] [address] Dr. Brea Causey Protein [Mass/Vol] 7.3 g/dL Normal 6.4-8.2 [facility] Comment on above: Performed By: #### U CLINT, CMP, LIPID, DBIL, PHOS, MG #### [facility] [address] [place] [address] Dr. Brea Causey Sodium [Moles/Vol] 134 mmol/L Critically low 136-145 [facility] Comment on above: Performed By: #### U CLINT, CMP, LIPID, DBIL, PHOS, MG #### [facility] [address] [place] [address] Dr. Brea Causey Urea nitrogen [Mass/Vol] 8.0 mg/dL Normal 7.0-18.0 [facility] Comment on above: Performed By: #### U CLINT, CMP, LIPID, DBIL, PHOS, MG #### [facility] [address] [place] [address] Dr. Brea Causey Urea nitrogen/Creatinine [Mass ratio] 8.2 mg/mg Normal [facility] Comment on above: Performed By: #### U CLINT, CMP, LIPID, DBIL, PHOS, MG #### [facility] [address] [place] [address] Dr. Brea Causey URIC ACID SERUMon 08-01-2022 Urate [Mass/Vol] 5.8 mg/dL Normal 3.5-7.2 [facility] Comment on above: Performed By: #### U CLINT, CMP, LIPID, DBIL, PHOS, MG #### [facility] [address] [place] [address] Dr. Brea Causey FK506 (TACROLIMUS) WHOLE BLO ODon 07-07-2022 Tacrolimus (FK506), Blood 3.6 ng/mL Normal 2.0-20.[address] [facility] Comment on above: Result Comment: Trou gh (immediately following transplant) 15.0 . Trough (steady state, 2 weeks or more after transplant): 3.0 - 8.0 . Performed by LC-MS/MS technology. Performed By: #### C BC #### [facility] [address] [place] [address] Dr. Brea Causey BILIRUBIN CONJUGATED (DIRECT )on 07-04-2022 BILI, CONJUGATED 0.1 mg/dL Normal 0.0-0.2 [facility] Comment on above: Performed By: #### B KVIRUS #### [facility] [address] [place] [address] Dr. Brea Causey CBC AUTO DIFFon 07-04-2022 BASO # 0.0 103/ul Normal 0.0-0.1 [facility] Comment on above: Performed By: #### U CLINT, CMP, LIPID, DBIL, PHOS, MG #### [facility] [address] [place] [address] Dr. Brea Causey Basophils/100 WBC (Bld) 0.5 % Normal 0.2-2.[address] [facility] Comment on above: Performed By: #### U CLINT, CMP, LIPID, DBIL, PHOS, MG #### [facility] [address] [place] [address] Dr. Brea Causey EO # 0.2 103/ul Normal 0.0-0.[address] [facility] Comment on above: Performed By: #### U CLINT, CMP, LIPID, DBIL, PHOS, MG #### [facility] [address] [place] [address] Dr. Brea Causey Eosinophils/100 WBC (Bld) 2.6 % Normal 0.9-7.0 [facility] Comment on above: Performed By: #### U CLINT, CMP, LIPID, DBIL, PHOS, MG #### [facility] [address] [address] [address] Brea Causey Erythrocyte distribution width (RBC) [Ratio] 13.3 % Normal 11.0-15.[address] [facility] Comment on above: Performed By: #### U CLINT, CMP, LIPID, DBIL, PHOS, MG #### [facility] [address] [address] [address] Brea Causey Hematocrit (Bld) [Volume fraction] 37.2 % Critically low 42.0-54.0 [facility] Comment on above: Performed By: #### U CLINT, CMP, LIPID, DBIL, PHOS, MG #### [facility] [address] [place] [address] Dr. Brea Causey Hemoglobin (Bld) [Mass/Vol] 12.4 g/dL Critically low 14.0-18.0 [facility] Comment on above: Performed By: #### U CLINT, CMP, LIPID, DBIL, PHOS, MG #### [facility] [address] [address] [address] Brea Causey IG # 0.09 10e3/ul Critically high 0.00-0.03 [facility] Comment on above: Performed By: #### U CLINT, CMP, LIPID, DBIL, PHOS, MG #### [facility] [address] [place] [address] Dr. Brea Causey IG % 1.4 % Critically high 0.0-0.5 [facility] Comment on above: Performed By: #### U CLINT, CMP, LIPID, DBIL, PHOS, MG #### [facility] [address] [place] [address] Dr. Brea Causey LYMPH # 1.0 103/ul Critically low 1.2-3.8 [facility] Comment on above: Performed By: #### U CLINT, CMP, LIPID, DBIL, PHOS, MG #### [facility] [address] [address] [address] Brea Causey Lymphocytes/100 WBC (Bld) 15.2 % Critically low 20.5-60.0 [facility] Comment on above: Performed By: #### U CLINT, CMP, LIPID, DBIL, PHOS, MG #### [facility] [address] [address] [address] Brea Causey MANUAL DIFF REQ NO Normal [facility] Comment on above: Performed By: #### U CLINT, CMP, LIPID, DBIL, PHOS, MG #### [facility] [address] [place] [address] Dr. Brea Causey MCH (RBC) [Entitic mass] 28.8 pg Normal 25.9-34.0 [facility] Comment on above: Performed By: #### U CLINT, CMP, LIPID, DBIL, PHOS, MG #### [facility] [address] [place] [address] Dr. Brea Causey MCHC (RBC) [Mass/Vol] 33.3 g/dL Normal 29.9-35.[address] [facility] Comment on above: Performed By: #### U CLINT, CMP, LIPID, DBIL, PHOS, MG #### [facility] [address] [place] [address] Dr. Brea Causey MCV (RBC) [Entitic vol] 86.5 fL Normal 80.0-94.0 [facility] Comment on above: Performed By: #### U CLINT, CMP, LIPID, DBIL, PHOS, MG #### [facility] [address] [place] [address] Dr. Brea Causey MONO # 0.7 103/ul Normal 0.3-0.[address] [facility] Comment on above: Performed By: #### U CLINT, CMP, LIPID, DBIL, PHOS, MG #### [facility] [address] [place] [address] Dr. Brea Causey Monocytes/100 WBC (Bld) 10.0 % Normal 1.7-12.0 [facility] Comment on above: Performed By: #### U CLINT, CMP, LIPID, DBIL, PHOS, MG #### [facility] [address] [address] [address] Brea Causey NEUT # 4.6 103/ul Normal 1.4-6.5 [facility] Comment on above: Performed By: #### U CLINT, CMP, LIPID, DBIL, PHOS, MG #### [facility] [address] [address] [address] Brea Causey Neutrophils/100 WBC (Bld) 70.3 % Normal 43.0-75.0 [facility] Comment on above: Performed By: #### U CLINT, CMP, LIPID, DBIL, PHOS, MG #### [facility] [address] [address] [address] Brea Causey Platelet mean volume (Bld) [Entitic vol] 8.8 fL Critically low 9.5-13.5 [facility] Comment on above: Performed By: #### U CLINT, CMP, LIPID, DBIL, PHOS, MG #### [facility] [address] [address] [address] Brea Causey PLT 240 103/ul Normal 150-450 [facility] Comment on above: Performed By: #### U CLINT, CMP, LIPID, DBIL, PHOS, MG #### [facility] [address] [address] [address] Brea Causey RBC 4.30 106/ul Critically low 4.70-6.10 [facility] Comment on above: Performed By: #### U CLINT, CMP, LIPID, DBIL, PHOS, MG #### [facility] [address] [address] [address] Brea Causey WBC 6.5 103/ul Normal 4.0-11.0 [facility] Comment on above: Performed By: #### U CLINT, CMP, LIPID, DBIL, PHOS, MG #### [facility] [address] [address] [address] Brea Causey LIPID PROFILEon 07-04-2022 CHOL-HDL RATIO NORM SEE BELOW Normal [facility] Comment on above: Result Comment: 3.3 - 4.4 LOW RISK 4.4 - 7.1 AVERAGE RISK 7.1 - 11.0 MODERATE RISK >11.0 HIGH RISK Performed By: #### U CLINT, CMP, LIPID, DBIL, PHOS, MG #### [facility] [address] [address] [address] Brea Causey Cholesterol [Mass/Vol] 86 mg/dL Normal <=200 [facility] Comment on above: Performed By: #### U CLINT, CMP, LIPID, DBIL, PHOS, MG #### [facility] [address] [address] [address] Brea Causey Cholesterol in HDL [Mass/Vol] 44 mg/dL Normal 40-60 [facility] Comment on above: Performed By: #### U CLINT, CMP, LIPID, DBIL, PHOS, MG #### [facility] [address] [place] [address] Dr. Brea Causey Cholesterol in LDL [Mass/Vol] 28.0 mg/dL Normal [facility] Comment on above: Performed By: #### U CLINT, CMP, LIPID, DBIL, PHOS, MG #### [facility] [address] [address] [address] Brea Causey Cholesterol.total/Chol esterol in HDL [Mass ratio] 2.0 {ratio} Normal [facility] Comment on above: Performed By: #### U CLINT, CMP, LIPID, DBIL, PHOS, MG #### [facility] [address] [address] [address] Brea Causey HDL NORMAL > or = 60 mg/dl - LO W CARDIOVASCULAR RISK <40 mg/dl - HIGH CARDIOVASCULAR RISK Normal [facility] Comment on above: Performed By: #### U CLINT, CMP, LIPID, DBIL, PHOS, MG #### [facility] [address] [place] [address] Dr. Brea Causey LDL CALC NORMAL SEE BELOW Normal [facility] Comment on above: Result Comment: <100 mg/dl OPTIMAL 100 - 129 mg/dl NEAR OR ABOVE OPTIMAL 130 - 159 mg/dl BORDERLINE HIGH 160 - 189 mg/dl HIGH >190 mg/dl VERY HIGH Performed By: #### U CLINT, CMP, LIPID, DBIL, PHOS, MG #### [facility] [address] [place] [address] Dr. Brea Causey Triglyceride [Mass/Vol] 70 mg/dL Normal <=150 [facility] Comment on above: Performed By: #### U CLINT, CMP, LIPID, DBIL, PHOS, MG #### [facility] [address] [place] [address] Dr. Brea Causey VLDL CALC 14.0 mg/dL Normal [facility] Comment on above: Performed By: #### U CLINT, CMP, LIPID, DBIL, PHOS, MG #### [facility] [address] [place] [address] Dr. Brea Causey MAGNESIUMon 07-04-2022 Magnesium [Mass/Vol] 1.4 mg/dL Critically low 1.8-2.4 [facility] Comment on above: Performed By: #### U CLINT, CMP, LIPID, DBIL, PHOS, MG #### [facility] [address] [place] [address] Dr. Brea Causey PHOSPHORUSon 07-04-2022 Phosphate [Mass/Vol] 4.1 mg/dL Normal 2.6-4.7 [facility] Comment on above: Performed By: #### U CLINT, CMP, LIPID, DBIL, PHOS, MG #### [facility] [address] [place] [address] Dr. Brea Causey PROF 14(COMP METB)on 023 Albumin [Mass/Vol] 4.0 g/dL Normal 3.4-5.0 [facility] Comment on above: Performed By: #### B KVIRUS #### [facility] [address] [place] [address] Dr. Brea Causey Albumin/Globulin [Mass ratio] 1.3 {ratio} Normal [facility] Comment on above: Performed By: #### B KVIRUS #### [facility] [address] [place] [address] Dr. Brea Causey ALP [Catalytic activity/Vol] 212 U/L Critically high 46-116 [facility] Comment on above: Performed By: #### B KVIRUS #### [facility] [address] [place] [address] Dr. Brea Causey ALT [Catalytic activity/Vol] 31 U/L Normal 16-63 [facility] Comment on above: Performed By: #### B KVIRUS #### [facility] [address] [place] [address] Dr. Brea Causey Anion gap [Moles/Vol] 11.9 mmol/L Normal [facility] Comment on above: Performed By: #### B KVIRUS #### [facility] [address] [place] [address] Dr. Brea Causey AST [Catalytic activity/Vol] 21 U/L Normal 15-37 [facility] Comment on above: Performed By: #### B KVIRUS #### [facility] [address] [place] [address] Dr. Brea Causey Bilirubin [Mass/Vol] 0.3 mg/dL Normal 0.2-1.0 [facility] Comment on above: Performed By: #### B KVIRUS #### [facility] [address] [place] [address] Dr. Brea Causey Calcium [Mass/Vol] 8.1 mg/dL Critically low 8.5-10.1 [facility] Comment on above: Performed By: #### B KVIRUS #### [facility] [address] [place] [address] Dr. Brea Causey Chloride [Moles/Vol] 97 mmol/L Critically low 98-107 [facility] Comment on above: Performed By: #### B KVIRUS #### [facility] [address] [place] [address] Dr. Brea Causey CO2 [Moles/Vol] 26.8 mmol/L Normal 21.0-32.0 [facility] Comment on above: Performed By: #### B KVIRUS #### [facility] [address] [place] [address] Dr. Brea Causey Creatinine [Mass/Vol] 0.99 mg/dL Normal 0.70-1.30 [facility] Comment on above: Performed By: #### B KVIRUS #### [facility] [address] [address] [address] Brea Causey EGFR-AF NIGERIAN >60 Normal >=60 [facility] Comment on above: Performed By: #### B KVIRUS #### [facility] [address] [address] [address] Brea Causey EGFR-NON AF NIGERIAN >60 Normal >=60 [facility] Comment on above: Performed By: #### B KVIRUS #### [facility] [address] [address] [address] Brea Causey Globulin (S) [Mass/Vol] 3.2 g/dL Normal [facility] Comment on above: Performed By: #### B KVIRUS #### [facility] [address] [place] [address] Dr. Brea Causey Glucose [Mass/Vol] 169 mg/dL Critically high 74-106 [facility] Comment on above: Performed By: #### B KVIRUS #### [facility] [address] [place] [address] Dr. Brea Causey Potassium [Moles/Vol] 4.7 mmol/L Normal 3.5-5.1 [facility] Comment on above: Performed By: #### B KVIRUS #### [facility] [address] [place] [address] Dr. Brea Causey Protein [Mass/Vol] 7.2 g/dL Normal 6.4-8.2 [facility] Comment on above: Performed By: #### B KVIRUS #### [facility] [address] [address] [address] Brea Causey Sodium [Moles/Vol] 131 mmol/L Critically low 136-145 [facility] Comment on above: Performed By: #### B KVIRUS #### [facility] [address] [place] [address] Dr. Brea Causey Urea nitrogen [Mass/Vol] 9.0 mg/dL Normal 7.0-18.0 [facility] Comment on above: Performed By: #### B KVIRUS #### [facility] [address] [address] [address] Brea Causey Urea nitrogen/Creatinine [Mass ratio] 9.1 mg/mg Normal [facility] Comment on above: Performed By: #### B KVIRUS #### [facility] [address] [id number] [address] Brea Causey URIC ACID SERUMon 07-04-2022 Urate [Mass/Vol] 6.1 mg/dL Normal 3.5-7.2 [facility] Comment on above: Performed By: #### U CLINT, CMP, LIPID, DBIL, PHOS, MG #### [facility] [address] [address] [address] Brea Causey TESTOSTERONE, FREE,DIRECT, T OTALon 05-28-2022 Free Testosterone(Direct) 5.9 pg/mL Critically low 6.6-18.1 [facility] Comment on above: Result Comment: Perf ormed at: BN Performed By: #### U CLINT, CMP, LIPID, DBIL, PHOS, MG #### [facility] [address] [address] [address] Brea Causey Testosterone [Mass/Vol] 513 ng/dL Normal 264-916 [facility] Comment on above: Result Comment: Adul t male reference interval is based on a population of healthy nonobese males (BMI <30) between 19 and 39 years old. Steven, et.al. JCEM 2017,102;1140-0247. PMID: [id number]. Performed at: CB Performed By: #### U CLINT, CMP, LIPID, DBIL, PHOS, MG #### [facility] [address] [address] [address] Brea Causey FK506 (TACROLIMUS) WHOLE BLO ODon 05-26-2022 Tacrolimus (FK506), Blood 3.9 ng/mL Normal 2.0-20.0 [facility] Comment on above: Result Comment: Trou gh (immediately following transplant) 15.0 . Trough (steady state, 2 weeks or more after transplant): 3.0 - 8.0 . Performed by LC-MS/MS technology. Performed By: #### B KVIRUS #### [facility] [address] [place] [address] Dr. Brea Causey BK VIRUS PCR QUANTon 023 BKV DNA QUANT PCR PLASMA Negative Normal Negative [facility] Comment on above: Result Comment: No B K DNA detected. . The linear range of the assay is 22 - 100,000,000 IU/mL. Performed By: #### U CLINT, CMP, LIPID, DBIL, PHOS, MG #### [facility] [address] [place] [address] Dr. Brea Causey Log10 BKV DNA Plasma Normal [facility] Comment on above: Performed By: #### U CLINT, CMP, LIPID, DBIL, PHOS, MG #### [facility] [address] [place] [address] Dr. Brea Causey BILIRUBIN CONJUGATED (DIRECT )on 05-23-2022 BILI, CONJUGATED 0.2 mg/dL Normal 0.0-0.2 [facility] Comment on above: Performed By: #### C BC #### [facility] [address] [place] [address] Dr. Brea Causey CBC AUTO DIFFon 05-23-2022 BASO # 0.0 103/ul Normal 0.0-0.1 [facility] Comment on above: Performed By: #### B KVIRUS #### [facility] [address] [place] [address] Dr. Brea Causey Basophils/100 WBC (Bld) 0.6 % Normal 0.2-2.0 [facility] Comment on above: Performed By: #### B KVIRUS #### [facility] [address] [place] [address] Dr. Brea Causey EO # 0.1 103/ul Normal 0.0-0.7 [facility] Comment on above: Performed By: #### B KVIRUS #### [facility] [address] [place] [address] Dr. Brea Causey Eosinophils/100 WBC (Bld) 1.7 % Normal 0.9-7.0 [facility] Comment on above: Performed By: #### B KVIRUS #### [facility] [address] [place] [address] Dr. Brea Causey Erythrocyte distribution width (RBC) [Ratio] 13.4 % Normal 11.0-15.0 [facility] Comment on above: Performed By: #### B KVIRUS #### [facility] [address] [place] [address] Dr. Brea Causey Hematocrit (Bld) [Volume fraction] 38.8 % Critically low 42.0-54.0 [facility] Comment on above: Performed By: #### B KVIRUS #### [facility] [address] [place] [address] Dr. Brea Causey Hemoglobin (Bld) [Mass/Vol] 12.4 g/dL Critically low 14.0-18.0 [facility] Comment on above: Performed By: #### B KVIRUS #### [facility] [address] [place] [address] Dr. Brea Causey IG # 0.07 10e3/ul Critically high 0.00-0.03 [facility] Comment on above: Performed By: #### B KVIRUS #### [facility] [address] [place] [address] Dr. Brea Causey IG % 1.1 % Critically high 0.0-0.5 [facility] Comment on above: Performed By: #### B KVIRUS #### [facility] [address] [place] [address] Dr. Brea Causey LYMPH # 0.9 103/ul Critically low 1.2-3.8 [facility] Comment on above: Performed By: #### B KVIRUS #### [facility] [address] [place] [address] Dr. Brea Causey Lymphocytes/100 WBC (Bld) 14.1 % Critically low 20.5-60.0 [facility] Comment on above: Performed By: #### B KVIRUS #### [facility] [address] [place] [address] Dr. Brea Causey MANUAL DIFF REQ NO Normal [facility] Comment on above: Performed By: #### B KVIRUS #### [facility] [address] [place] [address] Dr. Brea Causey MCH (RBC) [Entitic mass] 29.3 pg Normal 25.9-34.0 [facility] Comment on above: Performed By: #### B KVIRUS #### [facility] [address] [place] [address] Dr. Brea Causey MCHC (RBC) [Mass/Vol] 32.0 g/dL Normal 29.9-35.2 [facility] Comment on above: Performed By: #### B KVIRUS #### [facility] [address] [place] [address] Dr. Brea Causey MCV (RBC) [Entitic vol] 91.7 fL Normal 80.0-94.[address] [facility] Comment on above: Performed By: #### B KVIRUS #### [facility] [address] [place] [address] Dr. Brea Causey MONO # 0.7 103/ul Normal 0.3-0.8 [facility] Comment on above: Performed By: #### B KVIRUS #### [facility] [address] [place] [address] Dr. Brea Causey Monocytes/100 WBC (Bld) 10.0 % Normal 1.7-12.[address] [facility] Comment on above: Performed By: #### B KVIRUS #### [facility] [address] [place] [address] Dr. Brea Causey NEUT # 4.7 103/ul Normal 1.4-6.[address] [facility] Comment on above: Performed By: #### B KVIRUS #### [facility] [address] [place] [address] Dr. Brea Causey Neutrophils/100 WBC (Bld) 72.5 % Normal 43.0-75.[address] [facility] Comment on above: Performed By: #### B KVIRUS #### [facility] [address] [place] [address] Dr. Brea Causey Platelet mean volume (Bld) [Entitic vol] 9.4 fL Critically low 9.5-13.5 [facility] Comment on above: Performed By: #### B KVIRUS #### [facility] [address] [address] [address] Brea Causey PLT 256 103/ul Normal 150-450 [facility] Comment on above: Performed By: #### B KVIRUS #### [facility] [address] [address] [address] Brea Causey RBC 4.23 106/ul Critically low 4.70-6.10 [facility] Comment on above: Performed By: #### B KVIRUS #### [facility] [address] [address] [address] Brea Causey WBC 6.5 103/ul Normal 4.0-11.0 [facility] Comment on above: Performed By: #### B KVIRUS #### [facility] [address] [place] [address] Dr. Brea Causey GLYCOHEMOGLOBIN A1Con 2022 ADA RECOMMENDATION SEE BELOW Normal [facility] Comment on above: Result Comment: ADA RECOMMENDED LIMIT 4.0 - 6.0 ADA THERAPEUTIC TARGET < 7.0 ACTION SUGGESTED > 7.0 Performed By: #### U CLINT, CMP, LIPID, DBIL, PHOS, MG #### [facility] [address] [place] [address] Dr. Brea Causey Glucose [Mass/Vol] 160 mg/dL Normal [facility] Comment on above: Performed By: #### U CLINT, CMP, LIPID, DBIL, PHOS, MG #### [facility] [address] [address] [address] Brea Causey HbA1c (Bld) [Mass fraction] 7.2 % Critically high 4.5-6.2 [facility] Comment on above: Performed By: #### U CLINT, CMP, LIPID, DBIL, PHOS, MG #### [facility] [address] [place] [address] Dr. Brea Causey LIPID PROFILEon 05-23-2022 CHOL-HDL RATIO NORM SEE BELOW Normal [facility] Comment on above: Result Comment: 3.3 - 4.4 LOW RISK 4.4 - 7.1 AVERAGE RISK 7.1 - 11.0 MODERATE RISK >11.0 HIGH RISK Performed By: #### C BC #### [facility] [address] [place] [address] Dr. Brea Causey Cholesterol [Mass/Vol] 87 mg/dL Normal <=200 [facility] Comment on above: Performed By: #### C BC #### [facility] [address] [place] [address] Dr. Brea Causey Cholesterol in HDL [Mass/Vol] 54 mg/dL Normal 40-60 [facility] Comment on above: Performed By: #### C BC #### [facility] [address] [place] [address] Dr. Brea Causey Cholesterol in LDL [Mass/Vol] 24.6 mg/dL Normal [facility] Comment on above: Performed By: #### C BC #### [facility] [address] [place] [address] Dr. Brea Causey Cholesterol.total/Chol esterol in HDL [Mass ratio] 1.6 {ratio} Normal [facility] Comment on above: Performed By: #### C BC #### [facility] [address] [place] [address] Dr. Brea Causey HDL NORMAL > or = 60 mg/dl - LO W CARDIOVASCULAR RISK <40 mg/dl - HIGH CARDIOVASCULAR RISK Normal [facility] Comment on above: Performed By: #### C BC #### [facility] [address] [place] [address] Dr. Brea Causey LDL CALC NORMAL SEE BELOW Normal [facility] Comment on above: Result Comment: <100 mg/dl OPTIMAL 100 - 129 mg/dl NEAR OR ABOVE OPTIMAL 130 - 159 mg/dl BORDERLINE HIGH 160 - 189 mg/dl HIGH >190 mg/dl VERY HIGH Performed By: #### C BC #### [facility] [address] [place] [address] Dr. Brea Causey Triglyceride [Mass/Vol] 42 mg/dL Normal <=150 [facility] Comment on above: Performed By: #### C BC #### [facility] [address] [address] [address] Brea Causey VLDL CALC 8.4 mg/dL Normal [facility] Comment on above: Performed By: #### C BC #### [facility] [address] [place] [address] Dr. Brea Causey MAGNESIUMon 05-23-2022 Magnesium [Mass/Vol] 1.4 mg/dL Critically low 1.8-2.4 [facility] Comment on above: Performed By: #### C BC #### [facility] [address] [place] [address] Dr. Brea Causey PHOSPHORUSon 05-23-2022 Phosphate [Mass/Vol] 3.6 mg/dL Normal 2.6-4.7 [facility] Comment on above: Performed By: #### C BC #### [facility] [address] [place] [address] Dr. Brea Causey PROF 14(COMP METB)on 023 Albumin [Mass/Vol] 3.9 g/dL Normal 3.4-5.0 [facility] Comment on above: Performed By: #### C BC #### [facility] [address] [place] [address] Dr. Brea Causey Albumin/Globulin [Mass ratio] 1.2 {ratio} Normal [facility] Comment on above: Performed By: #### C BC #### [facility] [address] [place] [address] Dr. Brea Causey ALP [Catalytic activity/Vol] 190 U/L Critically high 46-116 [facility] Comment on above: Performed By: #### C BC #### [facility] [address] [place] [address] Dr. Brea Causey ALT [Catalytic activity/Vol] 26 U/L Normal 16-63 [facility] Comment on above: Performed By: #### C BC #### [facility] [address] [place] [address] Dr. Brea Causey Anion gap [Moles/Vol] 13.1 mmol/L Normal [facility] Comment on above: Performed By: #### C BC #### [facility] [address] [place] [address] Dr. Brea Causey AST [Catalytic activity/Vol] 18 U/L Normal 15-37 [facility] Comment on above: Performed By: #### C BC #### [facility] [address] [place] [address] Dr. Brea Causey Bilirubin [Mass/Vol] 0.4 mg/dL Normal 0.2-1.0 [facility] Comment on above: Performed By: #### C BC #### [facility] [address] [place] [address] Dr. Brea Causey Calcium [Mass/Vol] 7.8 mg/dL Critically low 8.5-10.1 [facility] Comment on above: Performed By: #### C BC #### [facility] [address] [place] [address] Dr. Brea Causey Chloride [Moles/Vol] 95 mmol/L Critically low 98-107 [facility] Comment on above: Performed By: #### C BC #### [facility] [address] [place] [address] Dr. Brea Causey CO2 [Moles/Vol] 28.8 mmol/L Normal 21.0-32.0 [facility] Comment on above: Performed By: #### C BC #### [facility] [address] [place] [address] Dr. Brea Causey Creatinine [Mass/Vol] 1.03 mg/dL Normal 0.70-1.30 [facility] Comment on above: Performed By: #### C BC #### [facility] [address] [place] [address] Dr. Brea Causey EGFR-AF NIGERIAN >60 Normal >=60 [facility] Comment on above: Performed By: #### C BC #### [facility] [address] [place] [address] Dr. Brea Causey EGFR-NON AF NIGERIAN >60 Normal >=60 [facility] Comment on above: Performed By: #### C BC #### [facility] [address] [place] [address] Dr. Brea Causey Globulin (S) [Mass/Vol] 3.2 g/dL Normal [facility] Comment on above: Performed By: #### C BC #### [facility] [address] [place] [address] Dr. Brea Causey Glucose [Mass/Vol] 155 mg/dL Critically high 74-106 [facility] Comment on above: Performed By: #### C BC #### [facility] [address] [address] [address] Brea Causey Potassium [Moles/Vol] 4.9 mmol/L Normal 3.5-5.1 [facility] Comment on above: Performed By: #### C BC #### [facility] [address] [place] [address] Dr. Brea Causey Protein [Mass/Vol] 7.1 g/dL Normal 6.4-8.2 [facility] Comment on above: Performed By: #### C BC #### [facility] [address] [place] [address] Dr. Brea Causey Sodium [Moles/Vol] 132 mmol/L Critically low 136-145 [facility] Comment on above: Performed By: #### C BC #### [facility] [address] [place] [address] Dr. Brea Causey Urea nitrogen [Mass/Vol] 8.0 mg/dL Normal 7.0-18.0 [facility] Comment on above: Performed By: #### C BC #### [facility] [address] [place] [address] Dr. Brea Causey Urea nitrogen/Creatinine [Mass ratio] 7.8 mg/mg Normal [facility] Comment on above: Performed By: #### C BC #### [facility] [address] [place], [place] [id number] Dr. Brea Causey URIC ACID SERUMon 05-23-2022 Urate [Mass/Vol] 5.6 mg/dL Normal 3.5-7.2 [facility] Comment on above: Performed By: #### C BC #### [facility] [address] [place] [address] Dr. Brea Causey TESTOSTERONE, FREE,DIRECT, T OTALon 05-03-2022 Free Testosterone(Direct) 7.4 pg/mL Normal 6.6-18.1 [facility] Comment on above: Result Comment: Perf ormed at: BN Performed By: #### U CLINT, CMP, LIPID, DBIL, PHOS, MG #### [facility] [address] [address] [address] Brea Causey Testosterone [Mass/Vol] 494 ng/dL Normal 264-[address] [facility] Comment on above: Result Comment: Adul t male reference interval is based on a population of healthy nonobese males (BMI <30) between 19 and 39 years old. Steven, et.al. JCEM 2017,102;8327-3545. PMID: [id number]. Performed at: CB Performed By: #### U CLINT, CMP, LIPID, DBIL, PHOS, MG #### [facility] [address] [place] [address] Dr. Brea Causey FK506 (TACROLIMUS) WHOLE BLO ODon 05-02-2022 Tacrolimus (FK506), Blood 4.3 ng/mL Normal 2.0-20.0 [facility] Comment on above: Result Comment: Trou gh (immediately following transplant) 15.0 . Trough (steady state, 2 weeks or more after transplant): 3.0 - 8.0 . Performed by LC-MS/MS technology. Performed By: #### C BC #### [facility] [address] [place] [address] Dr. Brea Causey BILIRUBIN CONJUGATED (DIRECT )on 04-30-2022 BILI, CONJUGATED 0.1 mg/dL Normal 0.0-0.2 [facility] Comment on above: Performed By: #### U CLINT, CMP, LIPID, DBIL, PHOS, MG #### [facility] [address] [place] [address] Dr. Brea Causey CBC AUTO DIFFon 04-30-2022 BASO # 0.0 103/ul Normal 0.0-0.1 [facility] Comment on above: Performed By: #### U CLINT, CMP, LIPID, DBIL, PHOS, MG #### [facility] [address] [address] [address] Brea Causey Basophils/100 WBC (Bld) 0.5 % Normal 0.2-2.[address] [facility] Comment on above: Performed By: #### U CLINT, CMP, LIPID, DBIL, PHOS, MG #### [facility] [address] [place] [address] Dr. Brea Causey EO # 0.1 103/ul Normal 0.0-0.[address] [facility] Comment on above: Performed By: #### U CLINT, CMP, LIPID, DBIL, PHOS, MG #### [facility] [address] [place] [address] Dr. Brea Causey Eosinophils/100 WBC (Bld) 2.1 % Normal 0.9-7.0 [facility] Comment on above: Performed By: #### U CLINT, CMP, LIPID, DBIL, PHOS, MG #### [facility] [address] [place] [address] Dr. Brea Causey Erythrocyte distribution width (RBC) [Ratio] 13.2 % Normal 11.0-15.0 [facility] Comment on above: Performed By: #### U CLINT, CMP, LIPID, DBIL, PHOS, MG #### [facility] [address] [place] [address] Dr. Brea Causey Hematocrit (Bld) [Volume fraction] 37.0 % Critically low 42.0-54.0 [facility] Comment on above: Performed By: #### U CLINT, CMP, LIPID, DBIL, PHOS, MG #### [facility] [address] [place] [address] Dr. Brea Causey Hemoglobin (Bld) [Mass/Vol] 12.4 g/dL Critically low 14.0-18.[address] [facility] Comment on above: Performed By: #### U CLINT, CMP, LIPID, DBIL, PHOS, MG #### [facility] [address] [place] [address] Dr. Brea Causey IG # 0.05 10e3/ul Critically high 0.00-0.03 [facility] Comment on above: Performed By: #### U CLINT, CMP, LIPID, DBIL, PHOS, MG #### [facility] [address] [address] [address] Brea Causey IG % 0.9 % Critically high 0.0-0.5 [facility] Comment on above: Performed By: #### U CLINT, CMP, LIPID, DBIL, PHOS, MG #### [facility] [address] [place] [address] Dr. Brea Causey LYMPH # 1.0 103/ul Critically low 1.2-3.8 [facility] Comment on above: Performed By: #### U CLINT, CMP, LIPID, DBIL, PHOS, MG #### [facility] [address] [place] [address] Dr. Brea Causey Lymphocytes/100 WBC (Bld) 16.4 % Critically low 20.5-60.0 [facility] Comment on above: Performed By: #### U CLINT, CMP, LIPID, DBIL, PHOS, MG #### [facility] [address] [place] [address] Dr. Brea Causey MANUAL DIFF REQ NO Normal [facility] Comment on above: Performed By: #### U CLINT, CMP, LIPID, DBIL, PHOS, MG #### [facility] [address] [place] [address] Dr. Brea Causey MCH (RBC) [Entitic mass] 29.0 pg Normal 25.9-34.0 [facility] Comment on above: Performed By: #### U CLINT, CMP, LIPID, DBIL, PHOS, MG #### [facility] [address] [place] [address] Dr. Brea Causey MCHC (RBC) [Mass/Vol] 33.5 g/dL Normal 29.9-35.[address] [facility] Comment on above: Performed By: #### U CLINT, CMP, LIPID, DBIL, PHOS, MG #### [facility] [address] [place] [address] Dr. Brea Causey MCV (RBC) [Entitic vol] 86.7 fL Normal 80.0-94.0 [facility] Comment on above: Performed By: #### U CLINT, CMP, LIPID, DBIL, PHOS, MG #### [facility] [address] [place] [address] Dr. Brea Causey MONO # 0.7 103/ul Normal 0.3-0.[address] [facility] Comment on above: Performed By: #### U CLINT, CMP, LIPID, DBIL, PHOS, MG #### [facility] [address] [place] [address] Dr. Brea Causey Monocytes/100 WBC (Bld) 11.6 % Normal 1.7-12.[address] [facility] Comment on above: Performed By: #### U CLINT, CMP, LIPID, DBIL, PHOS, MG #### [facility] [address] [place] [address] Dr. Brea Causey NEUT # 4.0 103/ul Normal 1.4-6.[address] [facility] Comment on above: Performed By: #### U CLINT, CMP, LIPID, DBIL, PHOS, MG #### [facility] [address] [place] [address] Dr. Brea Causey Neutrophils/100 WBC (Bld) 68.5 % Normal 43.0-75.[address] [facility] Comment on above: Performed By: #### U CLINT, CMP, LIPID, DBIL, PHOS, MG #### [facility] [address] [place] [address] Dr. Brea Causey Platelet mean volume (Bld) [Entitic vol] 9.2 fL Critically low 9.5-13.5 [facility] Comment on above: Performed By: #### U CLINT, CMP, LIPID, DBIL, PHOS, MG #### [facility] [address] [place] [address] Dr. Brea Causey PLT 231 103/ul Normal 150-[address] [facility] Comment on above: Performed By: #### U CLINT, CMP, LIPID, DBIL, PHOS, MG #### [facility] [address] [place] [address] Dr. Brea Causey RBC 4.27 106/ul Critically low 4.70-6.10 [facility] Comment on above: Performed By: #### U CLINT, CMP, LIPID, DBIL, PHOS, MG #### [facility] [address] [address] [address] Brea Causey WBC 5.9 103/ul Normal 4.0-11.0 [facility] Comment on above: Performed By: #### U CLINT, CMP, LIPID, DBIL, PHOS, MG #### [facility] [address] [address] [address] Brea Causey LIPID PROFILEon 04-30-2022 CHOL-HDL RATIO NORM SEE BELOW Normal [facility] Comment on above: Result Comment: 3.3 - 4.4 LOW RISK 4.4 - 7.1 AVERAGE RISK 7.1 - 11.0 MODERATE RISK >11.0 HIGH RISK Performed By: #### U CLINT, CMP, LIPID, DBIL, PHOS, MG #### [facility] [address] [place] [address] Dr. Brea Causey Cholesterol [Mass/Vol] 78 mg/dL Normal <=200 [facility] Comment on above: Performed By: #### U CLINT, CMP, LIPID, DBIL, PHOS, MG #### [facility] [address] [address] [address] Brea Causey Cholesterol in HDL [Mass/Vol] 41 mg/dL Normal 40-60 [facility] Comment on above: Performed By: #### U CLINT, CMP, LIPID, DBIL, PHOS, MG #### [facility] [address] [address] [address] Brea Causey Cholesterol in LDL [Mass/Vol] 17.8 mg/dL Normal [facility] Comment on above: Performed By: #### U CLINT, CMP, LIPID, DBIL, PHOS, MG #### [facility] [address] [place] [address] Dr. Brea Causey Cholesterol.total/Chol esterol in HDL [Mass ratio] 1.9 {ratio} Normal [facility] Comment on above: Performed By: #### U CLINT, CMP, LIPID, DBIL, PHOS, MG #### [facility] [address] [address] [address] Brea Causey HDL NORMAL > or = 60 mg/dl - LO W CARDIOVASCULAR RISK <40 mg/dl - HIGH CARDIOVASCULAR RISK Normal [facility] Comment on above: Performed By: #### U CLINT, CMP, LIPID, DBIL, PHOS, MG #### [facility] [address] [address] [address] Brea Causey LDL CALC NORMAL SEE BELOW Normal [facility] Comment on above: Result Comment: <100 mg/dl OPTIMAL 100 - 129 mg/dl NEAR OR ABOVE OPTIMAL 130 - 159 mg/dl BORDERLINE HIGH 160 - 189 mg/dl HIGH >190 mg/dl VERY HIGH Performed By: #### U CLINT, CMP, LIPID, DBIL, PHOS, MG #### [facility] [address] [address] [address] Brea Causey Triglyceride [Mass/Vol] 96 mg/dL Normal <=[address] [facility] Comment on above: Performed By: #### U CLINT, CMP, LIPID, DBIL, PHOS, MG #### [facility] [address] [address] [address] Brea Causey VLDL CALC 19.2 mg/dL Normal [facility] Comment on above: Performed By: #### U CLINT, CMP, LIPID, DBIL, PHOS, MG #### [facility] [address] [address] [address] Brea Causey MAGNESIUMon 04-30-2022 Magnesium [Mass/Vol] 1.7 mg/dL Critically low 1.8-2.[address] [facility] Comment on above: Performed By: #### U CLINT, CMP, LIPID, DBIL, PHOS, MG #### [facility] [address] [address] [address] Brea Causey PHOSPHORUSon 04-30-2022 Phosphate [Mass/Vol] 3.6 mg/dL Normal 2.6-4.7 [facility] Comment on above: Performed By: #### U CLINT, CMP, LIPID, DBIL, PHOS, MG #### [facility] [address] [place] [address] Dr. Brea Causey PROF 14(COMP METB)on 022 Albumin [Mass/Vol] 4.0 g/dL Normal 3.4-5.0 [facility] Comment on above: Performed By: #### U CLINT, CMP, LIPID, DBIL, PHOS, MG #### [facility] [address] [place] [address] Dr. Brea Causey Albumin/Globulin [Mass ratio] 1.3 {ratio} Normal [facility] Comment on above: Performed By: #### U CLINT, CMP, LIPID, DBIL, PHOS, MG #### [facility] [address] [place] [address] Dr. Brea Causey ALP [Catalytic activity/Vol] 196 U/L Critically high 46-116 [facility] Comment on above: Performed By: #### U CLINT, CMP, LIPID, DBIL, PHOS, MG #### [facility] [address] [place] [address] Dr. Brea Causey ALT [Catalytic activity/Vol] 21 U/L Normal 16-63 [facility] Comment on above: Performed By: #### U CLINT, CMP, LIPID, DBIL, PHOS, MG #### [facility] [address] [place] [address] Dr. Brea Causey Anion gap [Moles/Vol] 10.5 mmol/L Normal [facility] Comment on above: Performed By: #### U CLINT, CMP, LIPID, DBIL, PHOS, MG #### [facility] [address] [place] [address] Dr. Brea Causey AST [Catalytic activity/Vol] 16 U/L Normal 15-37 [facility] Comment on above: Performed By: #### U CLINT, CMP, LIPID, DBIL, PHOS, MG #### [facility] [address] [place] [address] Dr. Brea Causey Bilirubin [Mass/Vol] 0.3 mg/dL Normal 0.2-1.0 [facility] Comment on above: Performed By: #### U CLINT, CMP, LIPID, DBIL, PHOS, MG #### [facility] [address] [address] [address] Brea Causey Calcium [Mass/Vol] 8.6 mg/dL Normal 8.5-10.1 [facility] Comment on above: Performed By: #### U CLINT, CMP, LIPID, DBIL, PHOS, MG #### [facility] [address] [address] [address] Brea Causey Chloride [Moles/Vol] 95 mmol/L Critically low 98-[address] [facility] Comment on above: Performed By: #### U CLINT, CMP, LIPID, DBIL, PHOS, MG #### [facility] [address] [place] [address] Dr. Brea Causey CO2 [Moles/Vol] 30.9 mmol/L Normal 21.0-32.0 [facility] Comment on above: Performed By: #### U CLINT, CMP, LIPID, DBIL, PHOS, MG #### [facility] [address] [place] [address] Dr. Brea Causey Creatinine [Mass/Vol] 1.00 mg/dL Normal 0.70-1.[address] [facility] Comment on above: Performed By: #### U CLINT, CMP, LIPID, DBIL, PHOS, MG #### [facility] [address] [place] [address] Dr. Brea Causey EGFR-AF NIGERIAN >60 Normal >=60 [facility] Comment on above: Performed By: #### U CLINT, CMP, LIPID, DBIL, PHOS, MG #### [facility] [address] [place] [address] Dr. Brea Causey EGFR-NON AF NIGERIAN >60 Normal >=[address] [facility] Comment on above: Performed By: #### U CLINT, CMP, LIPID, DBIL, PHOS, MG #### [facility] [address] [place] [address] Dr. Brea Causey Globulin (S) [Mass/Vol] 3.2 g/dL Normal [facility] Comment on above: Performed By: #### U CLINT, CMP, LIPID, DBIL, PHOS, MG #### [facility] [address] [address] [address] Brea Causey Glucose [Mass/Vol] 160 mg/dL Critically high 74-106 [facility] Comment on above: Performed By: #### U CLINT, CMP, LIPID, DBIL, PHOS, MG #### [facility] [address] [address] [address] Brea Causey Potassium [Moles/Vol] 5.4 mmol/L Critically high 3.5-5.1 [facility] Comment on above: Performed By: #### U CLINT, CMP, LIPID, DBIL, PHOS, MG #### [facility] [address] [place] [address] Dr. Brea Causey Protein [Mass/Vol] 7.2 g/dL Normal 6.4-8.2 [facility] Comment on above: Performed By: #### U CLINT, CMP, LIPID, DBIL, PHOS, MG #### [facility] [address] [place] [address] Dr. Brea Causey Sodium [Moles/Vol] 131 mmol/L Critically low 136-145 [facility] Comment on above: Performed By: #### U CLINT, CMP, LIPID, DBIL, PHOS, MG #### [facility] [address] [place] [address] Dr. Brea Causey Urea nitrogen [Mass/Vol] 11.0 mg/dL Normal 7.0-18.0 [facility] Comment on above: Performed By: #### U CLINT, CMP, LIPID, DBIL, PHOS, MG #### [facility] [address] [place] [address] Dr. Brea Causey Urea nitrogen/Creatinine [Mass ratio] 11.0 mg/mg Normal [facility] Comment on above: Performed By: #### U CLINT, CMP, LIPID, DBIL, PHOS, MG #### [facility] [address] [place] [address] Dr. Brea Causey URIC ACID SERUMon 04-30-2022 Urate [Mass/Vol] 5.9 mg/dL Normal 3.5-7.2 [facility] Comment on above: Performed By: #### U CLINT, CMP, LIPID, DBIL, PHOS, MG #### [facility] [address] [place] [address] Dr. Brea Causey FK506 (TACROLIMUS) WHOLE BLO ODon 04-06-2022 Tacrolimus (FK506), Blood 3.0 ng/mL Normal 2.0-20.[address] [facility] Comment on above: Result Comment: Trou gh (immediately following transplant) 15.0 . Trough (steady state, 2 weeks or more after transplant): 3.0 - 8.0 . Performed by LC-MS/MS technology. Performed By: #### U CLINT, CMP, LIPID, DBIL, PHOS, MG #### [facility] [address] [place] [address] Dr. Brea Causey BILIRUBIN CONJUGATED (DIRECT )on 04-03-2022 BILI, CONJUGATED 0.1 mg/dL Normal 0.0-0.2 [facility] Comment on above: Performed By: #### U CLINT, CMP, LIPID, DBIL, PHOS, MG #### [facility] [address] [place] [address] Dr. Brea Causey CBC AUTO DIFFon 04-03-2022 BASO # 0.0 103/ul Normal 0.0-0.1 [facility] Comment on above: Performed By: #### U CLINT, CMP, LIPID, DBIL, PHOS, MG #### [facility] [address] [place] [address] Dr. Brea Causey Basophils/100 WBC (Bld) 0.5 % Normal 0.2-2.[address] [facility] Comment on above: Performed By: #### U CLINT, CMP, LIPID, DBIL, PHOS, MG #### [facility] [address] [place] [address] Dr. Brea Casuey EO # 0.1 103/ul Normal 0.0-0.[address] [facility] Comment on above: Performed By: #### U CLINT, CMP, LIPID, DBIL, PHOS, MG #### [facility] [address] [place] [address] Dr. Brea Causey Eosinophils/100 WBC (Bld) 2.5 % Normal 0.9-7.0 [facility] Comment on above: Performed By: #### U CLINT, CMP, LIPID, DBIL, PHOS, MG #### [facility] [address] [place] [address] Dr. Brea Causey Erythrocyte distribution width (RBC) [Ratio] 13.3 % Normal 11.0-15.0 [facility] Comment on above: Performed By: #### U CLINT, CMP, LIPID, DBIL, PHOS, MG #### [facility] [address] [place] [address] Dr. Brea Causey Hematocrit (Bld) [Volume fraction] 36.4 % Critically low 42.0-54.0 [facility] Comment on above: Performed By: #### U CLINT, CMP, LIPID, DBIL, PHOS, MG #### [facility] [address] [place] [address] Dr. Brea Causey Hemoglobin (Bld) [Mass/Vol] 12.3 g/dL Critically low 14.0-18.0 [facility] Comment on above: Performed By: #### U CLINT, CMP, LIPID, DBIL, PHOS, MG #### [facility] [address] [place] [address] Dr. Brea Causey IG # 0.03 10e3/ul Normal 0.00-0.03 [facility] Comment on above: Performed By: #### U CLINT, CMP, LIPID, DBIL, PHOS, MG #### [facility] [address] [place] [address] Dr. Brea Causey IG % 0.5 % Normal 0.0-0.[address] [facility] Comment on above: Performed By: #### U CLINT, CMP, LIPID, DBIL, PHOS, MG #### [facility] [address] [place] [address] Dr. Brea Causey LYMPH # 0.9 103/ul Critically low 1.2-3.8 [facility] Comment on above: Performed By: #### U CLINT, CMP, LIPID, DBIL, PHOS, MG #### [facility] [address] [place] [address] Dr. Brea Causey Lymphocytes/100 WBC (Bld) 16.9 % Critically low 20.5-60.0 [facility] Comment on above: Performed By: #### U CLINT, CMP, LIPID, DBIL, PHOS, MG #### [facility] [address] [place] [address] Dr. Brea Causey MANUAL DIFF REQ NO Normal [facility] Comment on above: Performed By: #### U CLINT, CMP, LIPID, DBIL, PHOS, MG #### [facility] [address] [place] [address] Dr. Brea Causey MCH (RBC) [Entitic mass] 29.3 pg Normal 25.9-34.0 [facility] Comment on above: Performed By: #### U CLINT, CMP, LIPID, DBIL, PHOS, MG #### [facility] [address] [place] [address] Dr. Brea Causey MCHC (RBC) [Mass/Vol] 33.8 g/dL Normal 29.9-35.[address] [facility] Comment on above: Performed By: #### U CLINT, CMP, LIPID, DBIL, PHOS, MG #### [facility] [address] [place] [address] Dr. Brea Causey MCV (RBC) [Entitic vol] 86.7 fL Normal 80.0-94.0 [facility] Comment on above: Performed By: #### U CLINT, CMP, LIPID, DBIL, PHOS, MG #### [facility] [address] [place] [address] Dr. Brea Causey MONO # 0.6 103/ul Normal 0.3-0.[address] [facility] Comment on above: Performed By: #### U CLINT, CMP, LIPID, DBIL, PHOS, MG #### [facility] [address] [place] [address] Dr. Brea Causey Monocytes/100 WBC (Bld) 10.1 % Normal 1.7-12.[address] [facility] Comment on above: Performed By: #### U CLINT, CMP, LIPID, DBIL, PHOS, MG #### [facility] [address] [address] [address] Brea Causey NEUT # 3.9 103/ul Normal 1.4-6.5 [facility] Comment on above: Performed By: #### U CLINT, CMP, LIPID, DBIL, PHOS, MG #### [facility] [address] [address] [address] Brea Causey Neutrophils/100 WBC (Bld) 69.5 % Normal 43.0-75.0 [facility] Comment on above: Performed By: #### U CLINT, CMP, LIPID, DBIL, PHOS, MG #### [facility] [address] [address] [address] Brea Causey Platelet mean volume (Bld) [Entitic vol] 9.2 fL Critically low 9.5-13.5 [facility] Comment on above: Performed By: #### U CLINT, CMP, LIPID, DBIL, PHOS, MG #### [facility] [address] [address] [address] Brea Causey PLT 228 103/ul Normal 150-450 [facility] Comment on above: Performed By: #### U CLINT, CMP, LIPID, DBIL, PHOS, MG #### [facility] [address] [address] [address] Brea Causey RBC 4.20 106/ul Critically low 4.70-6.10 [facility] Comment on above: Performed By: #### U CLINT, CMP, LIPID, DBIL, PHOS, MG #### [facility] [address] [address] [address] Brea Causey WBC 5.6 103/ul Normal 4.0-11.0 [facility] Comment on above: Performed By: #### U CLINT, CMP, LIPID, DBIL, PHOS, MG #### [facility] [address] [address] [address] Brea Causey LIPID PROFILEon 04-03-2022 CHOL-HDL RATIO NORM SEE BELOW Normal [facility] Comment on above: Result Comment: 3.3 - 4.4 LOW RISK 4.4 - 7.1 AVERAGE RISK 7.1 - 11.0 MODERATE RISK >11.0 HIGH RISK Performed By: #### U CLINT, CMP, LIPID, DBIL, PHOS, MG #### [facility] [address] [address] [address] Brea Causey Cholesterol [Mass/Vol] 84 mg/dL Normal <=200 [facility] Comment on above: Performed By: #### U CLINT, CMP, LIPID, DBIL, PHOS, MG #### [facility] [address] [address] [address] Brea Causey Cholesterol in HDL [Mass/Vol] 45 mg/dL Normal 40-60 [facility] Comment on above: Performed By: #### U CLINT, CMP, LIPID, DBIL, PHOS, MG #### [facility] [address] [address] [address] Brea Causey Cholesterol in LDL [Mass/Vol] 22.8 mg/dL Normal [facility] Comment on above: Performed By: #### U CLINT, CMP, LIPID, DBIL, PHOS, MG #### [facility] [address] [address] [address] Brea Causey Cholesterol.total/Chol esterol in HDL [Mass ratio] 1.9 {ratio} Normal [facility] Comment on above: Performed By: #### U CLINT, CMP, LIPID, DBIL, PHOS, MG #### [facility] [address] [address] [address] Brea Causey HDL NORMAL > or = 60 mg/dl - LO W CARDIOVASCULAR RISK <40 mg/dl - HIGH CARDIOVASCULAR RISK Normal [facility] Comment on above: Performed By: #### U CLINT, CMP, LIPID, DBIL, PHOS, MG #### [facility] [address] [address] [address] Brea Causey LDL CALC NORMAL SEE BELOW Normal [facility] Comment on above: Result Comment: <100 mg/dl OPTIMAL 100 - 129 mg/dl NEAR OR ABOVE OPTIMAL 130 - 159 mg/dl BORDERLINE HIGH 160 - 189 mg/dl HIGH >190 mg/dl VERY HIGH Performed By: #### U CLINT, CMP, LIPID, DBIL, PHOS, MG #### [facility] [address] [address] [address] Brea Casuey Triglyceride [Mass/Vol] 81 mg/dL Normal <=150 [facility] Comment on above: Performed By: #### U CLINT, CMP, LIPID, DBIL, PHOS, MG #### [facility] [address] [address] [address] Brea Causey VLDL CALC 16.2 mg/dL Normal [facility] Comment on above: Performed By: #### U CLINT, CMP, LIPID, DBIL, PHOS, MG #### [facility] [address] [place] [address] Dr. Brea Causey MAGNESIUMon 04-03-2022 Magnesium [Mass/Vol] 1.6 mg/dL Critically low 1.8-2.4 [facility] Comment on above: Performed By: #### U CLINT, CMP, LIPID, DBIL, PHOS, MG #### [facility] [address] [place] [address] Dr. Brea Causey PHOSPHORUSon 04-03-2022 Phosphate [Mass/Vol] 3.9 mg/dL Normal 2.6-4.7 [facility] Comment on above: Performed By: #### U CLINT, CMP, LIPID, DBIL, PHOS, MG #### [facility] [address] [place] [address] Dr. Brea Causey PROF 14(COMP METB)on 022 Albumin [Mass/Vol] 4.0 g/dL Normal 3.4-5.0 [facility] Comment on above: Performed By: #### U CLINT, CMP, LIPID, DBIL, PHOS, MG #### [facility] [address] [place] [address] Dr. Brea Causey Albumin/Globulin [Mass ratio] 1.2 {ratio} Normal [facility] Comment on above: Performed By: #### U CLINT, CMP, LIPID, DBIL, PHOS, MG #### [facility] [address] [place] [address] Dr. Brea Causey ALP [Catalytic activity/Vol] 196 U/L Critically high 46-116 [facility] Comment on above: Performed By: #### U CLINT, CMP, LIPID, DBIL, PHOS, MG #### [facility] [address] [place] [address] Dr. Brea Causey ALT [Catalytic activity/Vol] 19 U/L Normal 16-63 [facility] Comment on above: Performed By: #### U CLINT, CMP, LIPID, DBIL, PHOS, MG #### [facility] [address] [place] [address] Dr. Brea Causey Anion gap [Moles/Vol] 10.2 mmol/L Normal [facility] Comment on above: Performed By: #### U CLINT, CMP, LIPID, DBIL, PHOS, MG #### [facility] [address] [place] [address] Dr. Brea Causey AST [Catalytic activity/Vol] 15 U/L Normal 15-37 [facility] Comment on above: Performed By: #### U CLINT, CMP, LIPID, DBIL, PHOS, MG #### [facility] [address] [place] [address] Dr. Brea Causey Bilirubin [Mass/Vol] 0.3 mg/dL Normal 0.2-1.0 [facility] Comment on above: Performed By: #### U CLINT, CMP, LIPID, DBIL, PHOS, MG #### [facility] [address] [place] [address] Dr. Brea Causey Calcium [Mass/Vol] 8.2 mg/dL Critically low 8.5-10.1 [facility] Comment on above: Performed By: #### U CLINT, CMP, LIPID, DBIL, PHOS, MG #### [facility] [address] [place] [address] Dr. Brea Causey Chloride [Moles/Vol] 97 mmol/L Critically low 98-107 [facility] Comment on above: Performed By: #### U CLINT, CMP, LIPID, DBIL, PHOS, MG #### [facility] [address] [address] [address] Brea Causey CO2 [Moles/Vol] 28.2 mmol/L Normal 21.0-32.0 [facility] Comment on above: Performed By: #### U CLINT, CMP, LIPID, DBIL, PHOS, MG #### [facility] [address] [place] [address] Dr. Brea Causey Creatinine [Mass/Vol] 1.00 mg/dL Normal 0.70-1.30 [facility] Comment on above: Performed By: #### U CLINT, CMP, LIPID, DBIL, PHOS, MG #### [facility] [address] [place] [address] Dr. Brea Causey EGFR-AF NIGERIAN >60 Normal >=60 [facility] Comment on above: Performed By: #### U CLINT, CMP, LIPID, DBIL, PHOS, MG #### [facility] [address] [place] [address] Dr. Brea Causey EGFR-NON AF NIGERIAN >60 Normal >=60 [facility] Comment on above: Performed By: #### U CLINT, CMP, LIPID, DBIL, PHOS, MG #### [facility] [address] [place] [address] Dr. Brea Causey Globulin (S) [Mass/Vol] 3.3 g/dL Normal [facility] Comment on above: Performed By: #### U CLINT, CMP, LIPID, DBIL, PHOS, MG #### [facility] [address] [place] [address] Dr. Brea Causey Glucose [Mass/Vol] 164 mg/dL Critically high 74-106 [facility] Comment on above: Performed By: #### U CLINT, CMP, LIPID, DBIL, PHOS, MG #### [facility] [address] [place] [address] Dr. Brea Causey Potassium [Moles/Vol] 4.4 mmol/L Normal 3.5-5.1 [facility] Comment on above: Performed By: #### U CLINT, CMP, LIPID, DBIL, PHOS, MG #### [facility] [address] [address] [address] Brea Causey Protein [Mass/Vol] 7.3 g/dL Normal 6.4-8.2 [facility] Comment on above: Performed By: #### U CLINT, CMP, LIPID, DBIL, PHOS, MG #### [facility] [address] [address] [address] Brea Causey Sodium [Moles/Vol] 131 mmol/L Critically low 136-145 [facility] Comment on above: Performed By: #### U CLINT, CMP, LIPID, DBIL, PHOS, MG #### [facility] [address] [place] [address] Dr. Brea Causey Urea nitrogen [Mass/Vol] 13.0 mg/dL Normal 7.0-18.0 [facility] Comment on above: Performed By: #### U CLINT, CMP, LIPID, DBIL, PHOS, MG #### [facility] [address] [place] [address] Dr. Brea Causey Urea nitrogen/Creatinine [Mass ratio] 13.0 mg/mg Normal [facility] Comment on above: Performed By: #### U CLINT, CMP, LIPID, DBIL, PHOS, MG #### [facility] [address] [place] [address] Dr. Brea Causey URIC ACID SERUMon 04-03-2022 Urate [Mass/Vol] 6.1 mg/dL Normal 3.5-7.2 [facility] Comment on above: Performed By: #### U CLINT, CMP, LIPID, DBIL, PHOS, MG #### [facility] [address] [place] [address] Dr. Brea Causey TESTOSTERONE, FREE,DIRECT, T OTALon 03-13-2022 Free Testosterone(Direct) 6.9 pg/mL Normal 6.6-18.1 [facility] Comment on above: Result Comment: Perf ormed at: BN Performed By: #### T ESTFRD #### [facility] [address] [place] [address] Dr. Brea Causey Testosterone [Mass/Vol] 428 ng/dL Normal 264-916 [facility] Comment on above: Result Comment: Adul t male reference interval is based on a population of healthy nonobese males (BMI <30) between 19 and 39 years old. Steven, et.al. JCEM 2017,102;9076-4786. PMID: [id number]. Performed at: CB Performed By: #### T ESTFRD #### [facility] [address] [place] [address] Dr. Brea Causey BK VIRUS PCR QUANTon 022 BKV DNA QUANT PCR PLASMA Negative Normal Negative [facility] Comment on above: Result Comment: No B K DNA detected. . The linear range of the assay is 22 - 100,000,000 IU/mL. Performed By: #### B KVIRUS #### [facility] [address] [place] [address] Dr. Brea Causey Log10 BKV DNA Plasma Normal [facility] Comment on above: Performed By: #### B KVIRUS #### [facility] [address] [place] [address] Dr. Brea Causey FK506 (TACROLIMUS) WHOLE BLO ODon 03-11-2022 Tacrolimus (FK506), Blood 4.7 ng/mL Normal 2.0-20.0 [facility] Comment on above: Result Comment: Trou gh (immediately following transplant) 15.0 . Trough (steady state, 2 weeks or more after transplant): 3.0 - 8.0 . Performed by LC-MS/MS technology. Performed By: #### C BC #### [facility] [address] [place] [address] Dr. Brea Causey BILIRUBIN CONJUGATED (DIRECT )on 03-08-2022 BILI, CONJUGATED 0.1 mg/dL Normal 0.0-0.2 [facility] Comment on above: Performed By: #### U CLINT, CMP, LIPID, DBIL, PHOS, MG #### [facility] [address] [place] [address] Dr. Brea Causey CBC AUTO DIFFon 03-08-2022 BASO # 0.0 103/ul Normal 0.0-0.1 [facility] Comment on above: Performed By: #### U CLINT, CMP, LIPID, DBIL, PHOS, MG #### [facility] [address] [place] [address] Dr. Brea Causey Basophils/100 WBC (Bld) 0.7 % Normal 0.2-2.[address] [facility] Comment on above: Performed By: #### U CLINT, CMP, LIPID, DBIL, PHOS, MG #### [facility] [address] [place] [address] Dr. Brea Causey EO # 0.2 103/ul Normal 0.0-0.[address] [facility] Comment on above: Performed By: #### U CLINT, CMP, LIPID, DBIL, PHOS, MG #### [facility] [address] [place] [address] Dr. Brea Causey Eosinophils/100 WBC (Bld) 3.1 % Normal 0.9-7.0 [facility] Comment on above: Performed By: #### U CLINT, CMP, LIPID, DBIL, PHOS, MG #### [facility] [address] [place] [address] Dr. Brea Causey Erythrocyte distribution width (RBC) [Ratio] 13.3 % Normal 11.0-15.[address] [facility] Comment on above: Performed By: #### U CLINT, CMP, LIPID, DBIL, PHOS, MG #### [facility] [address] [place] [address] Dr. Brea Causey Hematocrit (Bld) [Volume fraction] 35.7 % Critically low 42.0-54.[address] [facility] Comment on above: Performed By: #### U CLINT, CMP, LIPID, DBIL, PHOS, MG #### [facility] [address] [place] [address] Dr. Brea Causey Hemoglobin (Bld) [Mass/Vol] 12.0 g/dL Critically low 14.0-18.0 [facility] Comment on above: Performed By: #### U CLINT, CMP, LIPID, DBIL, PHOS, MG #### [facility] [address] [place] [address] Dr. Brea Causey IG # 0.06 10e3/ul Critically high 0.00-0.03 [facility] Comment on above: Performed By: #### U CLINT, CMP, LIPID, DBIL, PHOS, MG #### [facility] [address] [place] [address] Dr. Brea Causey IG % 1.0 % Critically high 0.0-0.5 [facility] Comment on above: Performed By: #### U CLINT, CMP, LIPID, DBIL, PHOS, MG #### [facility] [address] [address] [address] Brea Causey LYMPH # 0.8 103/ul Critically low 1.2-3.8 [facility] Comment on above: Performed By: #### U CLINT, CMP, LIPID, DBIL, PHOS, MG #### [facility] [address] [place] [address] Dr. Brea Causey Lymphocytes/100 WBC (Bld) 12.9 % Critically low 20.5-60.0 [facility] Comment on above: Performed By: #### U CLINT, CMP, LIPID, DBIL, PHOS, MG #### [facility] [address] [place] [address] Dr. Brea Causey MANUAL DIFF REQ NO Normal [facility] Comment on above: Performed By: #### U CLINT, CMP, LIPID, DBIL, PHOS, MG #### [facility] [address] [place] [address] Dr. Brea Causey MCH (RBC) [Entitic mass] 29.5 pg Normal 25.9-34.0 [facility] Comment on above: Performed By: #### U CLINT, CMP, LIPID, DBIL, PHOS, MG #### [facility] [address] [address] [address] Brea Causey MCHC (RBC) [Mass/Vol] 33.6 g/dL Normal 29.9-35.2 [facility] Comment on above: Performed By: #### U CLINT, CMP, LIPID, DBIL, PHOS, MG #### [facility] [address] [place] [address] Dr. Brea Causey MCV (RBC) [Entitic vol] 87.7 fL Normal 80.0-94.[address] [facility] Comment on above: Performed By: #### U CLINT, CMP, LIPID, DBIL, PHOS, MG #### [facility] [address] [place] [address] Dr. Brea Causey MONO # 0.6 103/ul Normal 0.3-0.[address] [facility] Comment on above: Performed By: #### U CLINT, CMP, LIPID, DBIL, PHOS, MG #### [facility] [address] [place] [address] Dr. rBea Causey Monocytes/100 WBC (Bld) 9.8 % Normal 1.7-12.[address] [facility] Comment on above: Performed By: #### U CLINT, CMP, LIPID, DBIL, PHOS, MG #### [facility] [address] [place] [address] Dr. Brea Causey NEUT # 4.4 103/ul Normal 1.4-6.[address] [facility] Comment on above: Performed By: #### U CLINT, CMP, LIPID, DBIL, PHOS, MG #### [facility] [address] [place] [address] Dr. Brea Causey Neutrophils/100 WBC (Bld) 72.5 % Normal 43.0-75.[address] [facility] Comment on above: Performed By: #### U CLINT, CMP, LIPID, DBIL, PHOS, MG #### [facility] [address] [place] [address] Dr. Brea Causey Platelet mean volume (Bld) [Entitic vol] 9.6 fL Normal 9.5-13.[address] [facility] Comment on above: Performed By: #### U CLINT, CMP, LIPID, DBIL, PHOS, MG #### [facility] [address] [place] [address] Dr. Brea Causey PLT 265 103/ul Normal 150-[address] [facility] Comment on above: Performed By: #### U CLINT, CMP, LIPID, DBIL, PHOS, MG #### [facility] [address] [place] [address] Dr. Brea Causey RBC 4.07 106/ul Critically low 4.70-6.10 [facility] Comment on above: Performed By: #### U CLINT, CMP, LIPID, DBIL, PHOS, MG #### [facility] [address] [address] [address] Brea Causey WBC 6.0 103/ul Normal 4.0-11.0 [facility] Comment on above: Performed By: #### U CLINT, CMP, LIPID, DBIL, PHOS, MG #### [facility] [address] [address] [address] Brea Causey GLYCOHEMOGLOBIN A1Con 2021 ADA RECOMMENDATION SEE BELOW Normal [facility] Comment on above: Result Comment: ADA RECOMMENDED LIMIT 4.0 - 6.0 ADA THERAPEUTIC TARGET < 7.0 ACTION SUGGESTED > 7.0 Performed By: #### U CLINT, CMP, LIPID, DBIL, PHOS, MG #### [facility] [address] [address] [address] Brea Causey Glucose [Mass/Vol] 169 mg/dL Normal [facility] Comment on above: Performed By: #### U CLINT, CMP, LIPID, DBIL, PHOS, MG #### [facility] [address] [address] [address] Brea Causey HbA1c (Bld) [Mass fraction] 7.5 % Critically high 4.5-6.2 [facility] Comment on above: Performed By: #### U CLINT, CMP, LIPID, DBIL, PHOS, MG #### [facility] [address] [address] [address] Brea Causey LIPID PROFILEon 03-08-2022 CHOL-HDL RATIO NORM SEE BELOW Normal [facility] Comment on above: Result Comment: 3.3 - 4.4 LOW RISK 4.4 - 7.1 AVERAGE RISK 7.1 - 11.0 MODERATE RISK >11.0 HIGH RISK Performed By: #### U CLINT, CMP, LIPID, DBIL, PHOS, MG #### [facility] [address] [address] [address] Brea Causey Cholesterol [Mass/Vol] 77 mg/dL Normal <=200 [facility] Comment on above: Performed By: #### U CLINT, CMP, LIPID, DBIL, PHOS, MG #### [facility] [address] [address] [address] Brea Causey Cholesterol in HDL [Mass/Vol] 49 mg/dL Normal 40-60 [facility] Comment on above: Performed By: #### U CLINT, CMP, LIPID, DBIL, PHOS, MG #### [facility] [address] [address] [address] Brea Causey Cholesterol in LDL [Mass/Vol] 20.4 mg/dL Normal [facility] Comment on above: Performed By: #### U CLINT, CMP, LIPID, DBIL, PHOS, MG #### [facility] [address] [address] [address] Brea Causey Cholesterol.total/Chol esterol in HDL [Mass ratio] 1.6 {ratio} Normal [facility] Comment on above: Performed By: #### U CLINT, CMP, LIPID, DBIL, PHOS, MG #### [facility] [address] [address] [address] Brea Causey HDL NORMAL > or = 60 mg/dl - LO W CARDIOVASCULAR RISK <40 mg/dl - HIGH CARDIOVASCULAR RISK Normal [facility] Comment on above: Performed By: #### U CLINT, CMP, LIPID, DBIL, PHOS, MG #### [facility] [address] [address] [address] Brea Causey LDL CALC NORMAL SEE BELOW Normal [facility] Comment on above: Result Comment: <100 mg/dl OPTIMAL 100 - 129 mg/dl NEAR OR ABOVE OPTIMAL 130 - 159 mg/dl BORDERLINE HIGH 160 - 189 mg/dl HIGH >190 mg/dl VERY HIGH Performed By: #### U CLINT, CMP, LIPID, DBIL, PHOS, MG #### [facility] [address] [address] [address] Brea Causey Triglyceride [Mass/Vol] 38 mg/dL Normal <=150 [facility] Comment on above: Performed By: #### U CLINT, CMP, LIPID, DBIL, PHOS, MG #### [facility] [address] [address] [address] Brea Causey VLDL CALC 7.6 mg/dL Normal [facility] Comment on above: Performed By: #### U CLINT, CMP, LIPID, DBIL, PHOS, MG #### [facility] [address] [place] [address] Dr. Brea Causey MAGNESIUMon 03-08-2022 Magnesium [Mass/Vol] 1.5 mg/dL Critically low 1.8-2.4 [facility] Comment on above: Performed By: #### U CLINT, CMP, LIPID, DBIL, PHOS, MG #### [facility] [address] [place] [address] Dr. Brea Causey PHOSPHORUSon 03-08-2022 Phosphate [Mass/Vol] 3.6 mg/dL Normal 2.6-4.7 [facility] Comment on above: Performed By: #### U CLINT, CMP, LIPID, DBIL, PHOS, MG #### [facility] [address] [place] [address] Dr. Brea Causey PROF 14(COMP METB)on 022 Albumin [Mass/Vol] 4.0 g/dL Normal 3.4-5.0 [facility] Comment on above: Performed By: #### U CLINT, CMP, LIPID, DBIL, PHOS, MG #### [facility] [address] [place] [address] Dr. Brea Causey Albumin/Globulin [Mass ratio] 1.2 {ratio} Normal [facility] Comment on above: Performed By: #### U CLINT, CMP, LIPID, DBIL, PHOS, MG #### [facility] [address] [place] [address] Dr. Brea Causey ALP [Catalytic activity/Vol] 176 U/L Critically high 46-116 [facility] Comment on above: Performed By: #### U CLINT, CMP, LIPID, DBIL, PHOS, MG #### [facility] [address] [place] [address] Dr. Brea Causey ALT [Catalytic activity/Vol] 21 U/L Normal 16-63 [facility] Comment on above: Performed By: #### U CLINT, CMP, LIPID, DBIL, PHOS, MG #### [facility] [address] [place] [address] Dr. Brea Causey Anion gap [Moles/Vol] 12.0 mmol/L Normal [facility] Comment on above: Performed By: #### U CLINT, CMP, LIPID, DBIL, PHOS, MG #### [facility] [address] [place] [address] Dr. Brea Causey AST [Catalytic activity/Vol] 13 U/L Critically low 15-37 [facility] Comment on above: Performed By: #### U CLINT, CMP, LIPID, DBIL, PHOS, MG #### [facility] [address] [place] [address] Dr. Brea Causey Bilirubin [Mass/Vol] 0.3 mg/dL Normal 0.2-1.0 [facility] Comment on above: Performed By: #### U CLINT, CMP, LIPID, DBIL, PHOS, MG #### [facility] [address] [place] [address] Dr. Brea Causey Calcium [Mass/Vol] 7.9 mg/dL Critically low 8.5-10.1 [facility] Comment on above: Performed By: #### U CLINT, CMP, LIPID, DBIL, PHOS, MG #### [facility] [address] [place] [address] Dr. Brea Causey Chloride [Moles/Vol] 100 mmol/L Normal 98-107 [facility] Comment on above: Performed By: #### U CLINT, CMP, LIPID, DBIL, PHOS, MG #### [facility] [address] [place] [address] Dr. Brea Causey CO2 [Moles/Vol] 27.3 mmol/L Normal 21.0-32.0 [facility] Comment on above: Performed By: #### U CLINT, CMP, LIPID, DBIL, PHOS, MG #### [facility] [address] [address] [address] Brea Causey Creatinine [Mass/Vol] 1.00 mg/dL Normal 0.70-1.30 [facility] Comment on above: Performed By: #### U CLINT, CMP, LIPID, DBIL, PHOS, MG #### [facility] [address] [address] [address] Brea Causey EGFR-AF NIGERIAN >60 Normal >=60 [facility] Comment on above: Performed By: #### U CLINT, CMP, LIPID, DBIL, PHOS, MG #### [facility] [address] [place] [address] Dr. Brea Causey EGFR-NON AF NIGERIAN >60 Normal >=60 [facility] Comment on above: Performed By: #### U CLINT, CMP, LIPID, DBIL, PHOS, MG #### [facility] [address] [place] [address] Dr. Brea Causey Globulin (S) [Mass/Vol] 3.3 g/dL Normal [facility] Comment on above: Performed By: #### U CLINT, CMP, LIPID, DBIL, PHOS, MG #### [facility] [address] [place] [address] Dr. Brea Causey Glucose [Mass/Vol] 155 mg/dL Critically high 74-106 [facility] Comment on above: Performed By: #### U CLINT, CMP, LIPID, DBIL, PHOS, MG #### [facility] [address] [place] [address] Dr. Brea Causey Potassium [Moles/Vol] 4.3 mmol/L Normal 3.5-5.1 [facility] Comment on above: Performed By: #### U CLINT, CMP, LIPID, DBIL, PHOS, MG #### [facility] [address] [place] [address] Dr. Brea Causey Protein [Mass/Vol] 7.3 g/dL Normal 6.4-8.2 [facility] Comment on above: Performed By: #### U CLINT, CMP, LIPID, DBIL, PHOS, MG #### [facility] [address] [address] [address] Brea Causey Sodium [Moles/Vol] 135 mmol/L Critically low 136-[address] [facility] Comment on above: Performed By: #### U CLINT, CMP, LIPID, DBIL, PHOS, MG #### [facility] [address] [address] [address] Brea Causey Urea nitrogen [Mass/Vol] 13.0 mg/dL Normal 7.0-18.0 [facility] Comment on above: Performed By: #### U CLINT, CMP, LIPID, DBIL, PHOS, MG #### [facility] [address] [address] [address] Brea Causey Urea nitrogen/Creatinine [Mass ratio] 13.0 mg/mg Normal [facility] Comment on above: Performed By: #### U CLINT, CMP, LIPID, DBIL, PHOS, MG #### [facility] [address] [address] [address] Brea Causey URIC ACID SERUMon 03-08-2022 Urate [Mass/Vol] 7.3 mg/dL Critically high 3.5-7.2 [facility] Comment on above: Performed By: #### U CLINT, CMP, LIPID, DBIL, PHOS, MG #### [facility] [address] [address] [address] Brea Snyder 03-05-2022 L - -------- Specimen: [id number] Received: 03/05/22 Status: CHERI Bonilla Num: [id number] Spec Type: Surgical Subm Dr: Tj Wells MD Tissues: A Colon Biopsy (COLON BX) B Colon Biopsy (DIVERTICULAR COLITIS) Procedures: HE Stain/4, Gross/Micro L4/2 -------- Age/ Patient Sex Location Account Attending Physician -------- Roger Kerr 71/[facility] [id number] Tj Wells MD -------- SPEC NUM: [id number] RECD: 03/05/22 STATUS: CHERI BONILLA NUM: [id number] ESTEFANI: 03/05/22 DR: Tj Wells MD ENTERED: 03/05/[address] [facility] [address]: MICHELLE TYPE: Surgical DEPT: S [...] in one cassette labeled B1. -------- Specimen: [id number] Received: 03/05/22 Status: CHERI Bonilla Num: [id number] Spec Type: Surgical Subm Dr: Tj Wells MD Tissues: A Colon Biopsy (COLON BX) B Colon Biopsy (DIVERTICULAR COLITIS) Procedures: HE Stain/4, Gross/Micro L4/2 -------- Patient: Roger Kerr [id number] (Continued) -------- Specimen: [id number] Received: 03/05/22 (Continued) Signed (signature on file) Kalpana Shaw MD 03/07/22 1025 -------- Specimen: [id number] Received: 03/05/22 Status: CHERI Bonilla Num: [id number] Spec Type: Surgical Subm Dr: Tj Wells MD Tissues: A Colon Biopsy (COLON BX) B Colon Biopsy (DIVERTICULAR COLITIS) Procedures: HE Stain/4, Gross/Micro L4/2 -------- Patient: Roger Kerr [id number] (Continued) -------- Specimen: [id number] Received: 03/05/22 (Continued) Microscopic Description A. Two glass slides with H E stained material have been examined. The microscopic findings support the above pathologic diagnosis. B. Two glass slides with H E stained material have been examined. The microscopic findings support the above pathologic diagnosis. CPT Codes 53305?2 -------- -------- Specimen: [id number] Received: 03/05/22-1000 Status: CHERI Bonilla Num: [id number] Spec Type: Surgical Subm Dr: Tj Wells MD Tissues: A Colon Biopsy (COLON BX) B Colon Biopsy (DIVERTICULAR COLITIS) Procedures: HE Stain/4, Gross/Micro L4/2 -------- Patient: Roger Kerr [id number] (Continued) -------- Signed (signature on file) Kalpana Shaw MD 03/07/22 1025 [facility] COVID-19 Antigenon 2 COVID-19 Antigen Healthcare [...] developed and its performance characteristic determined by [employer] and validated at [facility]. This test has not been FDA cleared [...] for SARS Antigen by ROCHELLE PERFORMED BY: [place] [address] PATHOLOGIST [employer]ON[employer] TECHNICIAN FEI WOODRUFF M.D. Normal [facility] Comment on above: Performed By: #### C OVID-19 MARQUISE, SOFIANEG #### [address] COVID-19 SOFIAOrdered By: Sheila Wells on 03-01-2022 SARS-CoV+SARS-CoV-2 (COVID-19) Ag IA.rapid Ql (Resp) Negative Negative [facility] Comment on above: This is a duplicate Marquise SARS Antigen (ROCHELLE) result to be used for statistical tracking purpose only. No Panel InformationOrdered By: Tj Wells on 03-01-2022 SARS Antigen (LFIA) [facility] Marquise Ag Negativeon 03-01-20 22 Marquise Ag Negative Negative Normal Negative [facility] Comment on above: Result Comment: This is a duplicate Marquise SARS Antigen (ROCHELLE) result to be used for statistical tracking purpose only. PERFORMED BY: [place] [address] PATHOLOGIST ZONING TECHNICIAN FEI WOODRUFF M.D. Performed By: #### C OVID-19 DIANE CAMARILLO #### [place] [id number] [facility] FK506 (TACROLIMUS) WHOLE BLO ODon 02-05-2022 Tacrolimus (FK506), Blood 5.4 ng/mL Normal 2.0-20.0 [facility] Comment on above: Result Comment: Trou gh (immediately following transplant) 15.0 . Trough (steady state, 2 weeks or more after transplant): 3.0 - 8.0 . Performed by LC-MS/MS technology. Performed By: #### U CLINT, CMP, LIPID, DBIL, PHOS, MG #### [facility] [address] [place] [address] Dr. Brea Causey BILIRUBIN CONJUGATED (DIRECT )on 02-01-2022 BILI, CONJUGATED 0.1 mg/dL Normal 0.0-0.2 [facility] Comment on above: Performed By: #### C BC #### [facility] [address] [place] [address] Dr. Brea Causey CBC AUTO DIFFon 02-01-2022 BASO # 0.0 103/ul Normal 0.0-0.1 [facility] Comment on above: Performed By: #### B KVIRUS #### [facility] [address] [place] [address] Dr. Brea Causey Basophils/100 WBC (Bld) 0.6 % Normal 0.2-2.0 [facility] Comment on above: Performed By: #### B KVIRUS #### [facility] [address] [place] [address] Dr. Brea Causey EO # 0.2 103/ul Normal 0.0-0.[address] [facility] Comment on above: Performed By: #### B KVIRUS #### [facility] [address] [place] [address] Dr. Brea Causey Eosinophils/100 WBC (Bld) 3.5 % Normal 0.9-7.0 [facility] Comment on above: Performed By: #### B KVIRUS #### [facility] [address] [place] [address] Dr. Brea Causey Erythrocyte distribution width (RBC) [Ratio] 13.0 % Normal 11.0-15.0 [facility] Comment on above: Performed By: #### B KVIRUS #### [facility] [address] [place] [address] Dr. Brea Causey Hematocrit (Bld) [Volume fraction] 36.9 % Critically low 42.0-54.0 [facility] Comment on above: Performed By: #### B KVIRUS #### [facility] [address] [place] [address] Dr. Brea Causey Hemoglobin (Bld) [Mass/Vol] 12.0 g/dL Critically low 14.0-18.0 [facility] Comment on above: Performed By: #### B KVIRUS #### [facility] [address] [place] [address] Dr. Brea Causey IG # 0.07 10e3/ul Critically high 0.00-0.03 [facility] Comment on above: Performed By: #### B KVIRUS #### [facility] [address] [place] [address] Dr. Brea Causey IG % 1.0 % Critically high 0.0-0.5 [facility] Comment on above: Performed By: #### B KVIRUS #### [facility] [address] [place] [address] Dr. Brea Causey LYMPH # 1.0 103/ul Critically low 1.2-3.8 [facility] Comment on above: Performed By: #### B KVIRUS #### [facility] [address] [place] [address] Dr. Brea Causey Lymphocytes/100 WBC (Bld) 14.2 % Critically low 20.5-60.0 [facility] Comment on above: Performed By: #### B KVIRUS #### [facility] [address] [place] [address] Dr. Brea Causey MANUAL DIFF REQ NO Normal [facility] Comment on above: Performed By: #### B KVIRUS #### [facility] [address] [place] [address] Dr. Brea Causey MCH (RBC) [Entitic mass] 29.1 pg Normal 25.9-34.0 [facility] Comment on above: Performed By: #### B KVIRUS #### [facility] [address] [place] [address] Dr. Brea Causey MCHC (RBC) [Mass/Vol] 32.5 g/dL Normal 29.9-35.2 [facility] Comment on above: Performed By: #### B KVIRUS #### [facility] [address] [place] [address] Dr. Brea Causey MCV (RBC) [Entitic vol] 89.6 fL Normal 80.0-94.0 [facility] Comment on above: Performed By: #### B KVIRUS #### [facility] [address] [place] [address] Dr. Brea Causey MONO # 0.7 103/ul Normal 0.3-0.8 [facility] Comment on above: Performed By: #### B KVIRUS #### [facility] [address] [place] [address] Dr. Brea Causey Monocytes/100 WBC (Bld) 9.9 % Normal 1.7-12.0 [facility] Comment on above: Performed By: #### B KVIRUS #### [facility] [address] [place] [address] Dr. Brea Causey NEUT # 4.9 103/ul Normal 1.4-6.[address] [facility] Comment on above: Performed By: #### B KVIRUS #### [facility] [address] [place] [address] Dr. Brea Causey Neutrophils/100 WBC (Bld) 70.8 % Normal 43.0-75.0 [facility] Comment on above: Performed By: #### B KVIRUS #### [facility] [address] [place] [address] Dr. Brea Causey Platelet mean volume (Bld) [Entitic vol] 9.6 fL Normal 9.5-13.5 [facility] Comment on above: Performed By: #### B KVIRUS #### [facility] [address] [place] [address] Dr. Brea Causey PLT 247 103/ul Normal 150-450 [facility] Comment on above: Performed By: #### B KVIRUS #### [facility] [address] [address] [address] Brea Causey RBC 4.12 106/ul Critically low 4.70-6.10 [facility] Comment on above: Performed By: #### B KVIRUS #### [facility] [address] [place] [address] Dr. Brea Causey WBC 6.9 103/ul Normal 4.0-11.0 [facility] Comment on above: Performed By: #### B KVIRUS #### [facility] [address] [place] [address] Dr. Brea Causey LIPID PROFILEon 02-01-2022 CHOL-HDL RATIO NORM SEE BELOW Normal [facility] Comment on above: Result Comment: 3.3 - 4.4 LOW RISK 4.4 - 7.1 AVERAGE RISK 7.1 - 11.0 MODERATE RISK >11.0 HIGH RISK Performed By: #### C BC #### [facility] [address] [place] [address] Dr. Brea Causey Cholesterol [Mass/Vol] 77 mg/dL Normal <=200 [facility] Comment on above: Performed By: #### C BC #### [facility] [address] [place] [address] Dr. Brea Causey Cholesterol in HDL [Mass/Vol] 40 mg/dL Normal 40-60 [facility] Comment on above: Performed By: #### C BC #### [facility] [address] [place] [address] Dr. Brea Causey Cholesterol in LDL [Mass/Vol] 21.0 mg/dL Normal [facility] Comment on above: Performed By: #### C BC #### [facility] [address] [place] [address] Dr. Brea Causey Cholesterol.total/Chol esterol in HDL [Mass ratio] 1.9 {ratio} Normal [facility] Comment on above: Performed By: #### C BC #### [facility] [address] [address] [address] Brea Causey HDL NORMAL > or = 60 mg/dl - LO W CARDIOVASCULAR RISK <40 mg/dl - HIGH CARDIOVASCULAR RISK Normal [facility] Comment on above: Performed By: #### C BC #### [facility] [address] [address] [address] Brea Causey LDL CALC NORMAL SEE BELOW Normal [facility] Comment on above: Result Comment: <100 mg/dl OPTIMAL 100 - 129 mg/dl NEAR OR ABOVE OPTIMAL 130 - 159 mg/dl BORDERLINE HIGH 160 - 189 mg/dl HIGH >190 mg/dl VERY HIGH Performed By: #### C BC #### [facility] [address] [address] [address] Brea Causey Triglyceride [Mass/Vol] 80 mg/dL Normal <=[address] [facility] Comment on above: Performed By: #### C BC #### [facility] [address] [address] [address] Brea Causey VLDL CALC 16.0 mg/dL Normal [facility] Comment on above: Performed By: #### C BC #### [facility] [address] [address] [address] Brea Causey MAGNESIUMon 02-01-2022 Magnesium [Mass/Vol] 1.5 mg/dL Critically low 1.8-2.4 [facility] Comment on above: Performed By: #### C BC #### [facility] [address] [address] [address] Brea Causey PHOSPHORUSon 02-01-2022 Phosphate [Mass/Vol] 4.1 mg/dL Normal 2.6-4.7 [facility] Comment on above: Performed By: #### C BC #### [facility] [address] [address] [address] Brea Causey PROF 14(COMP METB)on 022 Albumin [Mass/Vol] 4.0 g/dL Normal 3.4-5.0 [facility] Comment on above: Performed By: #### C BC #### [facility] [address] [place] [address] Dr. Brea Causey Albumin/Globulin [Mass ratio] 1.3 {ratio} Normal [facility] Comment on above: Performed By: #### C BC #### [facility] [address] [address] [address] Brea Causey ALP [Catalytic activity/Vol] 162 U/L Critically high 46-116 [facility] Comment on above: Performed By: #### C BC #### [facility] [address] [place] [address] Dr. Brea Causey ALT [Catalytic activity/Vol] 25 U/L Normal 16-63 [facility] Comment on above: Performed By: #### C BC #### [facility] [address] [place] [address] Dr. Brea Causey Anion gap [Moles/Vol] 11.1 mmol/L Normal [facility] Comment on above: Performed By: #### C BC #### [facility] [address] [place] [address] Dr. Brea Causey AST [Catalytic activity/Vol] 16 U/L Normal 15-37 [facility] Comment on above: Performed By: #### C BC #### [facility] [address] [place] [address] Dr. Brea Causey Bilirubin [Mass/Vol] 0.4 mg/dL Normal 0.2-1.0 [facility] Comment on above: Performed By: #### C BC #### [facility] [address] [place] [address] Dr. Brea Causey Calcium [Mass/Vol] 8.2 mg/dL Critically low 8.5-10.1 [facility] Comment on above: Performed By: #### C BC #### [facility] [address] [place] [address] Dr. Brea Causey Chloride [Moles/Vol] 99 mmol/L Normal 98-107 [facility] Comment on above: Performed By: #### C BC #### [facility] [address] [address] [address] Brea Causey CO2 [Moles/Vol] 28.1 mmol/L Normal 21.0-32.0 [facility] Comment on above: Performed By: #### C BC #### [facility] [address] [address] [address] Brea Causey Creatinine [Mass/Vol] 1.13 mg/dL Normal 0.70-1.30 [facility] Comment on above: Performed By: #### C BC #### [facility] [address] [place] [address] Dr. Brea Causey EGFR-AF NIGERIAN >60 Normal >=60 [facility] Comment on above: Performed By: #### C BC #### [facility] [address] [place] [address] Dr. Brea Causey EGFR-NON AF NIGERIAN >60 Normal >=60 [facility] Comment on above: Performed By: #### C BC #### [facility] [address] [place] [address] Dr. Brea Causey Globulin (S) [Mass/Vol] 3.1 g/dL Normal [facility] Comment on above: Performed By: #### C BC #### [facility] [address] [place] [address] Dr. Brea Causey Glucose [Mass/Vol] 177 mg/dL Critically high 74-106 [facility] Comment on above: Performed By: #### C BC #### [facility] [address] [place] [address] Dr. Brea Causey Potassium [Moles/Vol] 5.2 mmol/L Critically high 3.5-5.1 [facility] Comment on above: Performed By: #### C BC #### [facility] [address] [place] [address] Dr. Brea Causey Protein [Mass/Vol] 7.1 g/dL Normal 6.4-8.2 [facility] Comment on above: Performed By: #### C BC #### [facility] [address] [place] [address] Dr. Brea Causey Sodium [Moles/Vol] 133 mmol/L Critically low 136-[address] [facility] Comment on above: Performed By: #### C BC #### [facility] [address] [place] [address] Dr. Brea Causey Urea nitrogen [Mass/Vol] 12.0 mg/dL Normal 7.0-18.0 [facility] Comment on above: Performed By: #### C BC #### [facility] [address] [place] [address] Dr. Brea Causey Urea nitrogen/Creatinine [Mass ratio] 10.6 mg/mg Normal [facility] Comment on above: Performed By: #### C BC #### [facility] [address] [place] [address] Dr. Brea Causey URIC ACID SERUMon 02-01-2022 Urate [Mass/Vol] 7.7 mg/dL Critically high 3.5-7.2 [facility] Comment on above: Performed By: #### C BC #### [facility] [address] [place] [address] Dr. Brea Causey FK506 (TACROLIMUS) WHOLE BLO ODon 01-06-2022 Tacrolimus (FK506), Blood 11.4 ng/mL Normal 2.0-20.0 [facility] Comment on above: Result Comment: Trou gh (immediately following transplant) 15.0 . Trough (steady state, 2 weeks or more after transplant): 3.0 - 8.0 . Performed by LC-MS/MS technology. Performed By: #### B KVIRUS #### [facility] [address] [place] [address] Dr. Brea Causey BILIRUBIN CONJUGATED (DIRECT )on 01-04-2022 BILI, CONJUGATED 0.1 mg/dL Normal 0.0-0.2 [facility] Comment on above: Performed By: #### U LCINT, CMP, LIPID, DBIL, PHOS, MG #### [facility] [address] [place] [address] Dr. Brea Causey BOX TEST SENT OUTon 01-05-20 22 SENT TO REF LAB 01/04/2022 Normal [facility] Comment on above: Performed By: #### U CLINT, CMP, LIPID, DBIL, PHOS, MG #### [facility] [address] [address] [address] Brea Causey CBC AUTO DIFFon 01-04-2022 BASO # 0.0 103/ul Normal 0.0-0.1 [facility] Comment on above: Performed By: #### U CLINT, CMP, LIPID, DBIL, PHOS, MG #### [facility] [address] [address] [address] Brea Causey Basophils/100 WBC (Bld) 0.5 % Normal 0.2-2.[address] [facility] Comment on above: Performed By: #### U CLINT, CMP, LIPID, DBIL, PHOS, MG #### [facility] [address] [place] [address] Dr. Brea Causey EO # 0.3 103/ul Normal 0.0-0.[address] [facility] Comment on above: Performed By: #### U CLINT, CMP, LIPID, DBIL, PHOS, MG #### [facility] [address] [place] [address] Dr. Brea Causey Eosinophils/100 WBC (Bld) 3.9 % Normal 0.9-7.0 [facility] Comment on above: Performed By: #### U CLINT, CMP, LIPID, DBIL, PHOS, MG #### [facility] [address] [place] [address] Dr. Brea Causey Erythrocyte distribution width (RBC) [Ratio] 13.1 % Normal 11.0-15.[address] [facility] Comment on above: Performed By: #### U CLINT, CMP, LIPID, DBIL, PHOS, MG #### [facility] [address] [place] [address] Dr. Brea Causey Hematocrit (Bld) [Volume fraction] 37.4 % Critically low 42.0-54.0 [facility] Comment on above: Performed By: #### U CLINT, CMP, LIPID, DBIL, PHOS, MG #### [facility] [address] [place] [address] Dr. Brea Causey Hemoglobin (Bld) [Mass/Vol] 12.0 g/dL Critically low 14.0-18.0 [facility] Comment on above: Performed By: #### U CLINT, CMP, LIPID, DBIL, PHOS, MG #### [facility] [address] [place] [address] Dr. Brea Causey IG # 0.07 10e3/ul Critically high 0.00-0.03 [facility] Comment on above: Performed By: #### U CLINT, CMP, LIPID, DBIL, PHOS, MG #### [facility] [address] [place] [address] Dr. Brea Causey IG % 1.1 % Critically high 0.0-0.5 [facility] Comment on above: Performed By: #### U CLINT, CMP, LIPID, DBIL, PHOS, MG #### [facility] [address] [place] [address] Dr. Brea Causey LYMPH # 0.8 103/ul Critically low 1.2-3.8 [facility] Comment on above: Performed By: #### U CLINT, CMP, LIPID, DBIL, PHOS, MG #### [facility] [address] [place] [address] Dr. Brea Causey Lymphocytes/100 WBC (Bld) 12.2 % Critically low 20.5-60.0 [facility] Comment on above: Performed By: #### U CLINT, CMP, LIPID, DBIL, PHOS, MG #### [facility] [address] [place] [address] Dr. Brea Causey MANUAL DIFF REQ NO Normal [facility] Comment on above: Performed By: #### U CLINT, CMP, LIPID, DBIL, PHOS, MG #### [facility] [address] [place] [address] Dr. Brea Causey MCH (RBC) [Entitic mass] 29.1 pg Normal 25.9-34.0 [facility] Comment on above: Performed By: #### U CLINT, CMP, LIPID, DBIL, PHOS, MG #### [facility] [address] [place] [address] Dr. Brea Causey MCHC (RBC) [Mass/Vol] 32.1 g/dL Normal 29.9-35.[address] [facility] Comment on above: Performed By: #### U CLINT, CMP, LIPID, DBIL, PHOS, MG #### [facility] Laboratory [address] [place] [address] Dr. Brea Causey MCV (RBC) [Entitic vol] 90.6 fL Normal 80.0-94.[address] [facility] Comment on above: Performed By: #### U CLINT, CMP, LIPID, DBIL, PHOS, MG #### [facility] [address] [place] [address] Dr. Brea Causey MONO # 0.5 103/ul Normal 0.3-0.[address] [facility] Comment on above: Performed By: #### U CLINT, CMP, LIPID, DBIL, PHOS, MG #### [facility] [address] [place] [address] Dr. Brea Causey Monocytes/100 WBC (Bld) 8.0 % Normal 1.7-12.[address] [facility] Comment on above: Performed By: #### U CLINT, CMP, LIPID, DBIL, PHOS, MG #### [facility] [address] [place] [address] Dr. Brea Causey NEUT # 5.0 103/ul Normal 1.4-6.[address] [facility] Comment on above: Performed By: #### U CLINT, CMP, LIPID, DBIL, PHOS, MG #### [facility] [address] [place] [address] Dr. Brea Causey Neutrophils/100 WBC (Bld) 74.3 % Normal 43.0-75.[address] [facility] Comment on above: Performed By: #### U CLINT, CMP, LIPID, DBIL, PHOS, MG #### [facility] [address] [place] [address] Dr. Brea Causey Platelet mean volume (Bld) [Entitic vol] 9.5 fL Normal 9.5-13.[address] [facility] Comment on above: Performed By: #### U CLINT, CMP, LIPID, DBIL, PHOS, MG #### [facility] [address] [address] [address] Brea Causey PLT 243 103/ul Normal 150-450 [facility] Comment on above: Performed By: #### U CLINT, CMP, LIPID, DBIL, PHOS, MG #### [facility] [address] [address] [address] Brea Causey RBC 4.13 106/ul Critically low 4.70-6.10 [facility] Comment on above: Performed By: #### U CLINT, CMP, LIPID, DBIL, PHOS, MG #### [facility] [address] [place] [address] Dr. Brea Causey WBC 6.7 103/ul Normal 4.0-11.0 [facility] Comment on above: Performed By: #### U CLINT, CMP, LIPID, DBIL, PHOS, MG #### [facility] [address] [place] [address] Dr. Brea Causey LIPID PROFILEon 01-04-2022 CHOL-HDL RATIO NORM SEE BELOW Normal [facility] Comment on above: Result Comment: 3.3 - 4.4 LOW RISK 4.4 - 7.1 AVERAGE RISK 7.1 - 11.0 MODERATE RISK >11.0 HIGH RISK Performed By: #### U CLINT, CMP, LIPID, DBIL, PHOS, MG #### [facility] [address] [address] [address] Brea Causey Cholesterol [Mass/Vol] 81 mg/dL Normal <=200 [facility] Comment on above: Performed By: #### U CLINT, CMP, LIPID, DBIL, PHOS, MG #### [facility] [address] [place] [address] Dr. Brea Causey Cholesterol in HDL [Mass/Vol] 43 mg/dL Normal 40-60 [facility] Comment on above: Performed By: #### U CLINT, CMP, LIPID, DBIL, PHOS, MG #### [facility] [address] [place] [address] Dr. Brea Causey Cholesterol in LDL [Mass/Vol] 26.0 mg/dL Normal [facility] Comment on above: Performed By: #### U CLINT, CMP, LIPID, DBIL, PHOS, MG #### [facility] [address] [address] [address] Brea Causey Cholesterol.total/Chol esterol in HDL [Mass ratio] 1.9 {ratio} Normal [facility] Comment on above: Performed By: #### U CLINT, CMP, LIPID, DBIL, PHOS, MG #### [facility] [address] [address] [address] Brea Causey HDL NORMAL > or = 60 mg/dl - LO W CARDIOVASCULAR RISK <40 mg/dl - HIGH CARDIOVASCULAR RISK Normal [facility] Comment on above: Performed By: #### U CLINT, CMP, LIPID, DBIL, PHOS, MG #### [facility] [address] [address] [address] Brea Causey LDL CALC NORMAL SEE BELOW Normal [facility] Comment on above: Result Comment: <100 mg/dl OPTIMAL 100 - 129 mg/dl NEAR OR ABOVE OPTIMAL 130 - 159 mg/dl BORDERLINE HIGH 160 - 189 mg/dl HIGH >190 mg/dl VERY HIGH Performed By: #### U CLINT, CMP, LIPID, DBIL, PHOS, MG #### [facility] [address] [address] [address] Brea Causey Triglyceride [Mass/Vol] 60 mg/dL Normal <=[address] [facility] Comment on above: Performed By: #### U CLINT, CMP, LIPID, DBIL, PHOS, MG #### [facility] [address] [address] [address] Brea Causey VLDL CALC 12.0 mg/dL Normal [facility] Comment on above: Performed By: #### U CLINT, CMP, LIPID, DBIL, PHOS, MG #### [facility] [address] [address] [address] Brea Causey MAGNESIUMon 01-04-2022 Magnesium [Mass/Vol] 1.4 mg/dL Critically low 1.8-2.4 [facility] Comment on above: Performed By: #### U CLINT, CMP, LIPID, DBIL, PHOS, MG #### [facility] [address] [place] [address] Dr. Brea Causey PHOSPHORUSon 01-04-2022 Phosphate [Mass/Vol] 4.4 mg/dL Normal 2.6-4.7 [facility] Comment on above: Performed By: #### U CLINT, CMP, LIPID, DBIL, PHOS, MG #### [facility] [address] [place] [address] Dr. Brea Causey PROF 14(COMP METB)on 022 Albumin [Mass/Vol] 3.9 g/dL Normal 3.4-5.0 [facility] Comment on above: Performed By: #### U CLINT, CMP, LIPID, DBIL, PHOS, MG #### [facility] [address] [place] [address] Dr. Brea Causey Albumin/Globulin [Mass ratio] 1.2 {ratio} Normal [facility] Comment on above: Performed By: #### U CLINT, CMP, LIPID, DBIL, PHOS, MG #### [facility] [address] [place] [address] Dr. Brea Causey ALP [Catalytic activity/Vol] 155 U/L Critically high 46-116 [facility] Comment on above: Performed By: #### U CLINT, CMP, LIPID, DBIL, PHOS, MG #### [facility] [address] [place] [address] Dr. Brea Causey ALT [Catalytic activity/Vol] 27 U/L Normal 16-63 [facility] Comment on above: Performed By: #### U CLINT, CMP, LIPID, DBIL, PHOS, MG #### [facility] [address] [place] [address] Dr. Brea Causey Anion gap [Moles/Vol] 14.6 mmol/L Normal [facility] Comment on above: Performed By: #### U CLINT, CMP, LIPID, DBIL, PHOS, MG #### [facility] [address] [place] [address] Dr. Brea Causey AST [Catalytic activity/Vol] 17 U/L Normal 15-37 [facility] Comment on above: Performed By: #### U CLINT, CMP, LIPID, DBIL, PHOS, MG #### [facility] [address] [place] [address] Dr. Brea Causey Bilirubin [Mass/Vol] 0.3 mg/dL Normal 0.2-1.0 [facility] Comment on above: Performed By: #### U CLINT, CMP, LIPID, DBIL, PHOS, MG #### [facility] [address] [place] [address] Dr. Brea Causey Calcium [Mass/Vol] 8.1 mg/dL Critically low 8.5-10.1 [facility] Comment on above: Performed By: #### U CLINT, CMP, LIPID, DBIL, PHOS, MG #### [facility] [address] [place] [address] Dr. Brea Causey Chloride [Moles/Vol] 99 mmol/L Normal 98-[address] [facility] Comment on above: Performed By: #### U CLINT, CMP, LIPID, DBIL, PHOS, MG #### [facility] [address] [place] [address] Dr. Brea Causey CO2 [Moles/Vol] 25.0 mmol/L Normal 21.0-32.0 [facility] Comment on above: Performed By: #### U CLINT, CMP, LIPID, DBIL, PHOS, MG #### [facility] [address] [place] [address] Dr. Brea Causey Creatinine [Mass/Vol] 1.05 mg/dL Normal 0.70-1.[address] [facility] Comment on above: Performed By: #### U CLINT, CMP, LIPID, DBIL, PHOS, MG #### [facility] [address] [place] [address] Dr. Brea Causey EGFR-AF NIGERIAN >60 Normal >=60 [facility] Comment on above: Performed By: #### U CLINT, CMP, LIPID, DBIL, PHOS, MG #### [facility] [address] [place] [address] Dr. Brea Causey EGFR-NON AF NIGERIAN >60 Normal >=60 [facility] Comment on above: Performed By: #### U CLINT, CMP, LIPID, DBIL, PHOS, MG #### [facility] [address] [place] [address] Dr. Brea Causey Globulin (S) [Mass/Vol] 3.2 g/dL Normal [facility] Comment on above: Performed By: #### U CLINT, CMP, LIPID, DBIL, PHOS, MG #### [facility] [address] [place] [address] Dr. Brea Causey Glucose [Mass/Vol] 177 mg/dL Critically high 74-106 [facility] Comment on above: Performed By: #### U CLINT, CMP, LIPID, DBIL, PHOS, MG #### [facility] [address] [place] [address] Dr. Brea Causey Potassium [Moles/Vol] 4.6 mmol/L Normal 3.5-5.1 [facility] Comment on above: Performed By: #### U CLINT, CMP, LIPID, DBIL, PHOS, MG #### [facility] [address] [place] [address] Dr. Brea Causey Protein [Mass/Vol] 7.1 g/dL Normal 6.4-8.2 [facility] Comment on above: Performed By: #### U CLINT, CMP, LIPID, DBIL, PHOS, MG #### [facility] [address] [place] [address] Dr. Brea Causey Sodium [Moles/Vol] 134 mmol/L Critically low 136-145 [facility] Comment on above: Performed By: #### U CLINT, CMP, LIPID, DBIL, PHOS, MG #### [facility] [address] [place] [address] Dr. Brea Causey Urea nitrogen [Mass/Vol] 14.0 mg/dL Normal 7.0-18.0 [facility] Comment on above: Performed By: #### U CLINT, CMP, LIPID, DBIL, PHOS, MG #### [facility] [address] [place] [address] Dr. Brea Causey Urea nitrogen/Creatinine [Mass ratio] 13.3 mg/mg Normal [facility] Comment on above: Performed By: #### U CLINT, CMP, LIPID, DBIL, PHOS, MG #### [facility] [address] [place] [address] Dr. Brea Causey URIC ACID SERUMon 01-04-2022 Urate [Mass/Vol] 7.6 mg/dL Critically high 3.5-7.2 [facility] Comment on above: Performed By: #### U CLINT, CMP, LIPID, DBIL, PHOS, MG #### [facility] [address] [place] [address] Dr. Brea Causey BK VIRUS PCR QUANTon 022 BKV DNA QUANT PCR PLASMA Negative Normal Negative [facility] Comment on above: Result Comment: No B K DNA detected. . The linear range of the assay is 22 - 100,000,000 IU/mL. Performed By: #### B KVIRUS #### [facility] [address] [place] [address] Dr. Brea Causey Log10 BKV DNA Plasma Normal [facility] Comment on above: Performed By: #### B KVIRUS #### [facility] [address] [place] [address] Dr. Brea Causey FK506 (TACROLIMUS) WHOLE BLO ODon 12-03-2021 Tacrolimus (FK506), Blood 5.6 ng/mL Normal 2.0-20.0 [facility] Comment on above: Result Comment: Trou gh (immediately following transplant) 15.0 . Trough (steady state, 2 weeks or more after transplant): 3.0 - 8.0 . Performed by LC-MS/MS technology. Performed By: #### U CLINT, CMP, LIPID, DBIL, PHOS, MG #### [facility] [address] [place] [address] Dr. Brea Causey TESTOSTERONE, FREE,DIRECT, T OTALon 12-03-2021 Free Testosterone(Direct) 7.5 pg/mL Normal 6.6-18.1 [facility] Comment on above: Result Comment: Perf ormed at: BN Performed By: #### U CLINT, CMP, LIPID, DBIL, PHOS, MG #### [facility] [address] [address] [address] Brea Causey Testosterone [Mass/Vol] 467 ng/dL Normal 264-916 [facility] Comment on above: Result Comment: Adul t male reference interval is based on a population of healthy nonobese males (BMI <30) between 19 and 39 years old. Steven et.al. JCEM 2017,102;7005-2645. PMID: [id number]. Performed at: CB Performed By: #### U CLINT, CMP, LIPID, DBIL, PHOS, MG #### [facility] [address] [place] [address] Dr. Brea Causey BILIRUBIN CONJUGATED (DIRECT )on 11-30-2021 BILI, CONJUGATED 0.2 mg/dL Normal 0.0-0.2 [facility] Comment on above: Performed By: #### B KVIRUS #### [facility] [address] [place] [address] Dr. Brea Causey CBC AUTO DIFFon 11-30-2021 BASO # 0.0 103/ul Normal 0.0-0.[address] [facility] Comment on above: Performed By: #### U CLINT, CMP, LIPID, DBIL, PHOS, MG #### [facility] [address] [place] [address] Dr. Brea Causey Basophils/100 WBC (Bld) 0.6 % Normal 0.2-2.[address] [facility] Comment on above: Performed By: #### U CLINT, CMP, LIPID, DBIL, PHOS, MG #### [facility] [address] [place] [address] Dr. Brea Causey EO # 0.2 103/ul Normal 0.0-0.[address] [facility] Comment on above: Performed By: #### U CLINT, CMP, LIPID, DBIL, PHOS, MG #### [facility] [address] [place] [address] Dr. Brea Causey Eosinophils/100 WBC (Bld) 2.7 % Normal 0.9-7.[address] [facility] Comment on above: Performed By: #### U CLINT, CMP, LIPID, DBIL, PHOS, MG #### [facility] [address] [place] [address] Dr. Brea Causey Erythrocyte distribution width (RBC) [Ratio] 13.0 % Normal 11.0-15.0 [facility] Comment on above: Performed By: #### U CLINT, CMP, LIPID, DBIL, PHOS, MG #### [facility] [address] [place] [address] Dr. Brea Causey Hematocrit (Bld) [Volume fraction] 37.6 % Critically low 42.0-54.0 [facility] Comment on above: Performed By: #### U CLINT, CMP, LIPID, DBIL, PHOS, MG #### [facility] [address] [place] [address] Dr. Brea Causey Hemoglobin (Bld) [Mass/Vol] 12.4 g/dL Critically low 14.0-18.0 [facility] Comment on above: Performed By: #### U CLINT, CMP, LIPID, DBIL, PHOS, MG #### [facility] [address] [place] [address] Dr. Brea Causey IG # 0.06 10e3/ul Critically high 0.00-0.03 [facility] Comment on above: Performed By: #### U CLINT, CMP, LIPID, DBIL, PHOS, MG #### [facility] [address] [place] [address] Dr. Brea Causey IG % 0.9 % Critically high 0.0-0.5 [facility] Comment on above: Performed By: #### U CLINT, CMP, LIPID, DBIL, PHOS, MG #### [facility] [address] [place] [address] Dr. Brea Causey LYMPH # 1.0 103/ul Critically low 1.2-3.8 [facility] Comment on above: Performed By: #### U CLINT, CMP, LIPID, DBIL, PHOS, MG #### [facility] [address] [place] [address] Dr. Brea Causey Lymphocytes/100 WBC (Bld) 14.6 % Critically low 20.5-60.0 [facility] Comment on above: Performed By: #### U CLINT, CMP, LIPID, DBIL, PHOS, MG #### [facility] [address] [place] [address] Dr. Brea Causey MANUAL DIFF REQ NO Normal [facility] Comment on above: Performed By: #### U CLINT, CMP, LIPID, DBIL, PHOS, MG #### [facility] [address] [place] [address] Dr. Brea Causey MCH (RBC) [Entitic mass] 29.4 pg Normal 25.9-34.[address] [facility] Comment on above: Performed By: #### U CLINT, CMP, LIPID, DBIL, PHOS, MG #### [facility] [address] [place] [address] Dr. Brea Causey MCHC (RBC) [Mass/Vol] 33.0 g/dL Normal 29.9-35.[address] [facility] Comment on above: Performed By: #### U CLINT, CMP, LIPID, DBIL, PHOS, MG #### [facility] [address] [place] [address] Dr. Brea Causey MCV (RBC) [Entitic vol] 89.1 fL Normal 80.0-94.0 [facility] Comment on above: Performed By: #### U CLINT, CMP, LIPID, DBIL, PHOS, MG #### [facility] [address] [place] [address] Dr. Brea Causey MONO # 0.7 103/ul Normal 0.3-0.[address] [facility] Comment on above: Performed By: #### U CLINT, CMP, LIPID, DBIL, PHOS, MG #### [facility] [address] [place] [address] Dr. Brea Causey Monocytes/100 WBC (Bld) 10.0 % Normal 1.7-12.0 [facility] Comment on above: Performed By: #### U CLINT, CMP, LIPID, DBIL, PHOS, MG #### [facility] [address] [address] [address] Brea Causey NEUT # 4.8 103/ul Normal 1.4-6.5 [facility] Comment on above: Performed By: #### U CLINT, CMP, LIPID, DBIL, PHOS, MG #### [facility] [address] [address] [address] Brea Causey Neutrophils/100 WBC (Bld) 71.2 % Normal 43.0-75.0 [facility] Comment on above: Performed By: #### U CLINT, CMP, LIPID, DBIL, PHOS, MG #### [facility] [address] [address] [address] Brea Causey Platelet mean volume (Bld) [Entitic vol] 9.0 fL Critically low 9.5-13.5 [facility] Comment on above: Performed By: #### U CLINT, CMP, LIPID, DBIL, PHOS, MG #### [facility] [address] [address] [address] Brea Causey PLT 280 103/ul Normal 150-450 [facility] Comment on above: Performed By: #### U CLINT, CMP, LIPID, DBIL, PHOS, MG #### [facility] [address] [address] [address] Brea Causey RBC 4.22 106/ul Critically low 4.70-6.10 [facility] Comment on above: Performed By: #### U CLINT, CMP, LIPID, DBIL, PHOS, MG #### [facility] [address] [address] [address] Brea Causey WBC 6.7 103/ul Normal 4.0-11.0 [facility] Comment on above: Performed By: #### U CLINT, CMP, LIPID, DBIL, PHOS, MG #### [facility] [address] [place] [address] Dr. Brea Causey GLYCOHEMOGLOBIN A1Con 2021 ADA RECOMMENDATION SEE BELOW Normal [facility] Comment on above: Result Comment: ADA RECOMMENDED LIMIT 4.0 - 6.0 ADA THERAPEUTIC TARGET < 7.0 ACTION SUGGESTED > 7.0 Performed By: #### B KVIRUS #### [facility] [address] [address] [address] Brea Causey Glucose [Mass/Vol] 171 mg/dL Normal [facility] Comment on above: Performed By: #### B KVIRUS #### [facility] [address] [address] [address] Brea Causey HbA1c (Bld) [Mass fraction] 7.6 % Critically high 4.5-6.2 [facility] Comment on above: Performed By: #### B KVIRUS #### [facility] [address] [address] [address] Brea Causey LIPID PROFILEon 11-30-2021 CHOL-HDL RATIO NORM SEE BELOW Normal [facility] Comment on above: Result Comment: 3.3 - 4.4 LOW RISK 4.4 - 7.1 AVERAGE RISK 7.1 - 11.0 MODERATE RISK >11.0 HIGH RISK Performed By: #### C BC #### [facility] [address] [place] [address] Dr. Brea Causey Cholesterol [Mass/Vol] 75 mg/dL Normal <=200 [facility] Comment on above: Performed By: #### C BC #### [facility] [address] [place] [address] Dr. Brea Causey Cholesterol in HDL [Mass/Vol] 41 mg/dL Normal 40-60 [facility] Comment on above: Performed By: #### C BC #### [facility] [address] [address] [address] Brea Causey Cholesterol in LDL [Mass/Vol] 18.6 mg/dL Normal [facility] Comment on above: Performed By: #### C BC #### [facility] [address] [place] [address] Dr. Brea Causey Cholesterol.total/Chol esterol in HDL [Mass ratio] 1.8 {ratio} Normal [facility] Comment on above: Performed By: #### C BC #### [facility] [address] [place] [address] Dr. Brea Causey HDL NORMAL > or = 60 mg/dl - LO W CARDIOVASCULAR RISK <40 mg/dl - HIGH CARDIOVASCULAR RISK Normal [facility] Comment on above: Performed By: #### C BC #### [facility] [address] [address] [address] Brea Causey LDL CALC NORMAL SEE BELOW Normal [facility] Comment on above: Result Comment: <100 mg/dl OPTIMAL 100 - 129 mg/dl NEAR OR ABOVE OPTIMAL 130 - 159 mg/dl BORDERLINE HIGH 160 - 189 mg/dl HIGH >190 mg/dl VERY HIGH Performed By: #### C BC #### [facility] [address] [address] [address] Brea Causey Triglyceride [Mass/Vol] 77 mg/dL Normal <=150 [facility] Comment on above: Performed By: #### C BC #### [facility] [address] [place] [address] Dr. Brea Causey VLDL CALC 15.4 mg/dL Normal [facility] Comment on above: Performed By: #### C BC #### [facility] [address] [address] [address] Brea Causey MAGNESIUMon 11-30-2021 Magnesium [Mass/Vol] 1.4 mg/dL Critically low 1.8-2.4 [facility] Comment on above: Performed By: #### B KVIRUS #### [facility] [address] [place] [address] Dr. Brea Causey PHOSPHORUSon 11-30-2021 Phosphate [Mass/Vol] 4.1 mg/dL Normal 2.6-4.7 [facility] Comment on above: Performed By: #### C BC #### [facility] [address] [place] [address] Dr. Brea Causey PROF 14(COMP METB)on 022 Albumin [Mass/Vol] 4.2 g/dL Normal 3.4-5.0 [facility] Comment on above: Performed By: #### C BC #### [facility] [address] [place] [address] Dr. Brea Causey Albumin/Globulin [Mass ratio] 1.3 {ratio} Normal [facility] Comment on above: Performed By: #### C BC #### [facility] [address] [address] [address] Brea Causey ALP [Catalytic activity/Vol] 148 U/L Critically high 46-116 [facility] Comment on above: Performed By: #### C BC #### [facility] [address] [place] [address] Dr. Brea Causey ALT [Catalytic activity/Vol] 36 U/L Normal 16-63 [facility] Comment on above: Performed By: #### C BC #### [facility] [address] [address] [address] Brea Causey Anion gap [Moles/Vol] 14.7 mmol/L Normal [facility] Comment on above: Performed By: #### C BC #### [facility] [address] [place] [address] Dr. Brea Causey AST [Catalytic activity/Vol] 21 U/L Normal 15-37 [facility] Comment on above: Performed By: #### C BC #### [facility] [address] [place] [address] Dr. Brea Causey Bilirubin [Mass/Vol] 0.4 mg/dL Normal 0.2-1.0 [facility] Comment on above: Performed By: #### C BC #### [facility] [address] [place] [address] Dr. Brea Causey Calcium [Mass/Vol] 8.3 mg/dL Critically low 8.5-10.1 [facility] Comment on above: Performed By: #### C BC #### [facility] [address] [place] [address] Dr. Brea Causey Chloride [Moles/Vol] 98 mmol/L Normal 98-107 [facility] Comment on above: Performed By: #### C BC #### [facility] [address] [place] [address] Dr. Brea Causey CO2 [Moles/Vol] 27.2 mmol/L Normal 21.0-32.0 [facility] Comment on above: Performed By: #### C BC #### [facility] [address] [address] [address] Brea Causey Creatinine [Mass/Vol] 1.10 mg/dL Normal 0.70-1.30 [facility] Comment on above: Performed By: #### C BC #### [facility] [address] [address] [address] Brea Causey EGFR-AF NIGERIAN >60 Normal >=60 [facility] Comment on above: Performed By: #### C BC #### [facility] [address] [address] [address] Brea Causey EGFR-NON AF NIGERIAN >60 Normal >=60 [facility] Comment on above: Performed By: #### C BC #### [facility] [address] [place] [address] Dr. Brea Causey Globulin (S) [Mass/Vol] 3.2 g/dL Normal [facility] Comment on above: Performed By: #### C BC #### [facility] [address] [place] [address] Dr. Brea Causey Glucose [Mass/Vol] 173 mg/dL Critically high 74-106 [facility] Comment on above: Performed By: #### C BC #### [facility] [address] [place] [address] Dr. Brea Causey Potassium [Moles/Vol] 4.9 mmol/L Normal 3.5-5.1 [facility] Comment on above: Performed By: #### C BC #### [facility] [address] [place] [address] Dr. Brea Causey Protein [Mass/Vol] 7.4 g/dL Normal 6.4-8.2 [facility] Comment on above: Performed By: #### C BC #### [facility] [address] [place] [address] Dr. Brea Causey Sodium [Moles/Vol] 135 mmol/L Critically low 136-145 [facility] Comment on above: Performed By: #### C BC #### [facility] [address] [place] [address] Dr. Brea Causey Urea nitrogen [Mass/Vol] 14.0 mg/dL Normal 7.0-18.0 [facility] Comment on above: Performed By: #### C BC #### [facility] [address] [place] [address] Dr. Brea Causey Urea nitrogen/Creatinine [Mass ratio] 12.7 mg/mg Normal [facility] Comment on above: Performed By: #### C BC #### [facility] [address] [place] [address] Dr. Brea Causey URIC ACID SERUMon 11-30-2021 Urate [Mass/Vol] 7.8 mg/dL Critically high 3.5-7.[address] [facility] Comment on above: Performed By: #### C BC #### [facility] [address] [place] [address] Dr. Brea Causey BNPon 11-14-2021 Natriuretic peptide B (Bld) [Mass/Vol] 350.0 pg/mL Normal <=900.0 [facility] Comment on above: Performed By: #### C BC #### [facility] [address] [place] [address] Dr. Brea Causey CBC AUTO DIFFon 11-14-2021 BASO # 0.0 103/ul Normal 0.0-0.1 [facility] Comment on above: Performed By: #### C BC #### [facility] [address] [place] [address] Dr. Brea Causey Basophils/100 WBC (Bld) 0.1 % Critically low 0.2-2.[address] [facility] Comment on above: Performed By: #### C BC #### [facility] [address] [place] [address] Dr. Brea Causey EO # 0.2 103/ul Normal 0.0-0.[address] [facility] Comment on above: Performed By: #### C BC #### [facility] [address] [place] [address] Dr. Brea Causey Eosinophils/100 WBC (Bld) 1.4 % Normal 0.9-7.[address] [facility] Comment on above: Performed By: #### C BC #### [facility] [address] [address] [address] Brea Causey Erythrocyte distribution width (RBC) [Ratio] 13.1 % Normal 11.0-15.0 [facility] Comment on above: Performed By: #### C BC #### [facility] [address] [place] [address] Dr. Brea Causey Hematocrit (Bld) [Volume fraction] 39.4 % Critically low 42.0-54.0 [facility] Comment on above: Performed By: #### C BC #### [facility] [address] [place] [address] Dr. Brea Causey Hemoglobin (Bld) [Mass/Vol] 13.2 g/dL Critically low 14.0-18.0 [facility] Comment on above: Performed By: #### C BC #### [facility] [address] [place] [address] Dr. Brea Causey IG # 0.11 10e3/ul Critically high 0.00-0.03 [facility] Comment on above: Performed By: #### C BC #### [facility] [address] [place] [address] Dr. Brea Causey IG % 0.6 % Critically high 0.0-0.5 [facility] Comment on above: Performed By: #### C BC #### [facility] [address] [place] [address] Dr. Brea Causey LYMPH # 1.1 103/ul Critically low 1.2-3.8 [facility] Comment on above: Performed By: #### C BC #### [facility] [address] [place] [address] Dr. Brea Causey Lymphocytes/100 WBC (Bld) 6.7 % Critically low 20.5-60.0 [facility] Comment on above: Performed By: #### C BC #### [facility] [address] [place] [address] Dr. Brea Causey MANUAL DIFF REQ NO Normal [facility] Comment on above: Performed By: #### C BC #### [facility] [address] [address] [address] Brea Causey MCH (RBC) [Entitic mass] 29.5 pg Normal 25.9-34.[address] [facility] Comment on above: Performed By: #### C BC #### [facility] [address] [address] [address] Brea Causey MCHC (RBC) [Mass/Vol] 33.5 g/dL Normal 29.9-35.[address] [facility] Comment on above: Performed By: #### C BC #### [facility] [address] [address] [address] Brea Causey MCV (RBC) [Entitic vol] 88.1 fL Normal 80.0-94.0 [facility] Comment on above: Performed By: #### C BC #### [facility] [address] [place] [address] Dr. Brea aCusey MONO # 1.5 103/ul Critically high 0.3-0.8 [facility] Comment on above: Performed By: #### C BC #### [facility] [address] [place] [address] Dr. Brea Causey Monocytes/100 WBC (Bld) 8.6 % Normal 1.7-12.0 [facility] Comment on above: Performed By: #### C BC #### [facility] [address] [place] [address] Dr. Brea Causey NEUT # 14.0 103/ul Critically high 1.4-6.5 [facility] Comment on above: Performed By: #### C BC #### [facility] [address] [place] [address] Dr. Brea Causey Neutrophils/100 WBC (Bld) 82.6 % Critically high 43.0-75.[address] [facility] Comment on above: Performed By: #### C BC #### [facility] [address] [place] [address] Dr. Brea Causey Platelet mean volume (Bld) [Entitic vol] 9.5 fL Normal 9.5-13.[address] [facility] Comment on above: Performed By: #### C BC #### [facility] [address] [address] [address] Brea Causey PLT 303 103/ul Normal 150-[address] [facility] Comment on above: Performed By: #### C BC #### [facility] [address] [address] [address] Brea Causey RBC 4.47 106/ul Critically low 4.70-6.10 [facility] Comment on above: Performed By: #### C BC #### [facility] [address] [id number] Brea Causey WBC 17.0 103/ul Critically high 4.0-11.0 [facility] Comment on above: Performed By: #### C BC #### [facility] [address] [place] [address] Dr. Brea Causey Covid-19 PCR ([facility])on SARS-CoV-2 (COVID-19) RNA ISI+probe Ql (Unsp spec) Not detected Normal NOT DETECTED [facility] Comment on above: Result Comment: When [...] for this test is supported by the Market Development Director of Health and Human Service's declaration that [...] CLINT, CMP, LIPID, DBIL, PHOS, MG #### [facility] [address] [place] [address] Dr. Brea Causey ER URINE PROFILEon 07-06-202 2 Bilirubin Ql (U) Negative Normal NEGATIVE [facility] Comment on above: Performed By: #### U CLINT, CMP, LIPID, DBIL, PHOS, MG #### [facility] [address] [address] [address] Brea Causey Clarity (U) CLEAR Normal CLEAR [facility] Comment on above: Performed By: #### U CLINT, CMP, LIPID, DBIL, PHOS, MG #### [facility] [address] [address] [address] Brea Causey Color (U) YELLOW Normal YELLOW [facility] Comment on above: Performed By: #### U CLINT, CMP, LIPID, DBIL, PHOS, MG #### [facility] [address] [place] [address] Dr. Brea GORDON A micrscopic examination will be performed if indicated. Normal [facility] Comment on above: Performed By: #### U CLINT, CMP, LIPID, DBIL, PHOS, MG #### [facility] [address] [place] [address] Dr. Brea Causey Glucose Ql (U) Negative Normal NEGATIVE [facility] Comment on above: Performed By: #### U CLINT, CMP, LIPID, DBIL, PHOS, MG #### [facility] [address] [place] [address] Dr. Brea Causey Hemoglobin Ql (U) Negative Normal NEGATIVE [facility] Comment on above: Performed By: #### U CLINT, CMP, LIPID, DBIL, PHOS, MG #### [facility] [address] [place] [address] Dr. Brea Causey Ketones Ql (U) Negative Normal NEGATIVE [facility] Comment on above: Performed By: #### U CLINT, CMP, LIPID, DBIL, PHOS, MG #### [facility] [address] [place] [address] Dr. Brea Causey LEUKOCYTES Negative Normal NEGATIVE [facility] Comment on above: Performed By: #### U CLINT, CMP, LIPID, DBIL, PHOS, MG #### [facility] [address] [place] [address] Dr. Brea Causey Nitrite Ql (U) Negative Normal NEGATIVE [facility] Comment on above: Performed By: #### U CLINT, CMP, LIPID, DBIL, PHOS, MG #### [facility] [address] [place] [address] Dr. Brea Causey pH (U) 6.0 [pH] Normal 5-9 [facility] Comment on above: Performed By: #### U CLINT, CMP, LIPID, DBIL, PHOS, MG #### [facility] [address] [place] [address] Dr. Brea Causey SPEC GRAVITY <=1.005 Abnormal 1.005-<=1.025 [facility] Comment on above: Performed By: #### U CLINT, CMP, LIPID, DBIL, PHOS, MG #### [facility] [address] [place] [address] Dr. Brea Causey UA PROTEIN Negative Normal NEGATIVE/ TRACE [facility] Comment on above: Performed By: #### U CLINT, CMP, LIPID, DBIL, PHOS, MG #### [facility] [address] [place] [address] Dr. Brea Causey UR MICRO IND NOT INDICATED Normal [facility] Comment on above: Performed By: #### U CLINT, CMP, LIPID, DBIL, PHOS, MG #### [facility] [address] [place] [address] Dr. Brea Causey Urobilinogen Qn (U) 0.2 {Sabine'U}/dL Normal 0.2 - 1. 0 [facility] Comment on above: Performed By: #### U CLINT, CMP, LIPID, DBIL, PHOS, MG #### [facility] [address] [place] [address] Dr. Brea Causey GI PANEL (PCR)on 11-14-2021 Adenovirus F 40/41 Not detected Normal NOT DETECTED [facility] Comment on above: Performed By: #### U CLINT, CMP, LIPID, DBIL, PHOS, MG #### [facility] [address] [place] [address] Dr. Brea Causey Astrovirus Not detected Normal NOT DETECTED [facility] Comment on above: Performed By: #### U CLINT, CMP, LIPID, DBIL, PHOS, MG #### [facility] [address] [place] [address] Dr. Brea Causey C. Diff toxin A/B Not detected Normal NOT DETECTED [facility] Comment on above: Performed By: #### U CLINT, CMP, LIPID, DBIL, PHOS, MG #### [facility] [address] [place] [address] Dr. Brea Causey Campylobacter Not detected Normal NOT DETECTED [facility] Comment on above: Performed By: #### U CLINT, CMP, LIPID, DBIL, PHOS, MG #### [facility] [address] [place] [address] Dr. Brea Causey Cryptosporidium Not detected Normal NOT DETECTED [facility] Comment on above: Performed By: #### U CLINT, CMP, LIPID, DBIL, PHOS, MG #### [facility] [address] [place] [address] Dr. Brea Causey Cyclos. Cayetanensis Not detected Normal NOT DETECTED [facility] Comment on above: Performed By: #### U CLINT, CMP, LIPID, DBIL, PHOS, MG #### [facility] [address] [place] [address] Dr. Brea Causey E. Coli O157 Not Applicable Normal Not Applicable [facility] Comment on above: Performed By: #### U CLINT, CMP, LIPID, DBIL, PHOS, MG #### [facility] [address] [place] [address] Dr. Brea Causey E. histolytica Not detected Normal NOT DETECTED [facility] Comment on above: Performed By: #### U CLINT, CMP, LIPID, DBIL, PHOS, MG #### [facility] [address] [place] [address] Dr. Brea Causey EAEC Not detected Normal NOT DETECTED [facility] Comment on above: Performed By: #### U CLINT, CMP, LIPID, DBIL, PHOS, MG #### [facility] [address] [address] [address] Brea Causey EIEC Not detected Normal NOT DETECTED [facility] Comment on above: Performed By: #### U CLINT, CMP, LIPID, DBIL, PHOS, MG #### [facility] [address] [address] [address] Brea Causey EPEC Not detected Normal NOT DETECTED [facility] Comment on above: Performed By: #### U CLINT, CMP, LIPID, DBIL, PHOS, MG #### [facility] [address] [address] [address] Brea Causey ETEC Not detected Normal NOT DETECTED [facility] Comment on above: Performed By: #### U CLINT, CMP, LIPID, DBIL, PHOS, MG #### [facility] [address] [address] [address] Brea Causey G. Lamblia Not detected Normal NOT DETECTED [facility] Comment on above: Performed By: #### U CLINT, CMP, LIPID, DBIL, PHOS, MG #### [facility] [address] [address] [address] Brea [facility]TONSAN [facility] CORPORATIONJanae CONTROLS PASSED Normal [facility] Comment on above: Performed By: #### U CLINT, CMP, LIPID, DBIL, PHOS, MG #### [facility] [address] [address] [address] Brea [facility] GI PANEL BACTERIA Normal [facility] Comment on above: Performed By: #### U CLINT, CMP, LIPID, DBIL, PHOS, MG #### [facility] [address] [address] [address] Brea DARDEN ECOLI GI PANEL DIARRHEAGENIC E.COLI / SHIGELLA Normal [facility] Comment on above: Performed By: #### U CLINT, CMP, LIPID, DBIL, PHOS, MG #### [facility] [address] [address] [address] Brea PINTO INFO SEE BELOW Normal [facility] Comment on above: Result Comment: EAEC - Enteroaggregative E. Coli EPEC- Enteropathogenic E. Coli ETEC- Enterotoxigenic E. Coli lt/st STEC- Shigella-like toxin-producing E. Coli stx1/stx2 EIEC- Shigella/Enteroinvasive E. Coli Performed By: #### U CLINT, CMP, LIPID, DBIL, PHOS, MG #### [facility] [address] [address] [address] Brea PINTO PARASITES GI PANEL PARASITES Normal [facility] Comment on above: Performed By: #### U CLINT, CMP, LIPID, DBIL, PHOS, MG #### [facility] [address] [address] [address] Brea PINTO VIRUS GI PANEL VIRUSES Normal [facility] Comment on above: Performed By: #### U CLINT, CMP, LIPID, DBIL, PHOS, MG #### [facility] [address] [address] [address] Brea Causey Norovirus GI/GII Not detected Normal NOT DETECTED [facility] Comment on above: Performed By: #### U CLINT, CMP, LIPID, DBIL, PHOS, MG #### [facility] [address] [address] [address] Brea Causey P. Shigelloides Not detected Normal NOT DETECTED [facility] Comment on above: Performed By: #### U CLINT, CMP, LIPID, DBIL, PHOS, MG #### [facility] [address] [address] [address] Brea Causey Rotavirus A Not detected Normal NOT DETECTED [facility] Comment on above: Performed By: #### U CLINT, CMP, LIPID, DBIL, PHOS, MG #### [facility] [address] [address] [address] Brea Causey Salmonella Not detected Normal NOT DETECTED [facility] Comment on above: Performed By: #### U CLINT, CMP, LIPID, DBIL, PHOS, MG #### [facility] [address] [address] [address] Brea Causey Sapovirus Not detected Normal NOT DETECTED [facility] Comment on above: Performed By: #### U CLINT, CMP, LIPID, DBIL, PHOS, MG #### [facility] [address] [address] [address] Brea Causey STE Not detected Normal NOT DETECTED [facility] Comment on above: Performed By: #### U CLINT, CMP, LIPID, DBIL, PHOS, MG #### [facility] [address] [address] [address] Brea Causey Vibrio Not detected Normal NOT DETECTED [facility] Comment on above: Performed By: #### U CLINT, CMP, LIPID, DBIL, PHOS, MG #### [facility] [address] [place] [address] Dr. Brea Causey Vibrio Cholera Not detected Normal NOT DETECTED [facility] Comment on above: Performed By: #### U CLINT, CMP, LIPID, DBIL, PHOS, MG #### [facility] [address] [place] [address] Dr. Brea Causey Y. Enterocolitica Not detected Normal NOT DETECTED [facility] Comment on above: Performed By: #### U CLINT, CMP, LIPID, DBIL, PHOS, MG #### [facility] [address] [address] [address] Brea Causey PROF 14(COMP METB)on 022 Albumin [Mass/Vol] 4.0 g/dL Normal 3.4-5.0 [facility] Comment on above: Performed By: #### C BC #### [facility] [address] [place] [address] Dr. Brea Causey Albumin/Globulin [Mass ratio] 1.3 {ratio} Normal [facility] Comment on above: Performed By: #### C BC #### [facility] [address] [place] [address] Dr. Brea Causey ALP [Catalytic activity/Vol] 142 U/L Critically high 46-116 [facility] Comment on above: Performed By: #### C BC #### [facility] [address] [address] [address] Brea Causey ALT [Catalytic activity/Vol] 39 U/L Normal 16-63 [facility] Comment on above: Performed By: #### C BC #### [facility] [address] [address] [address] Brea Causey Anion gap [Moles/Vol] 13.6 mmol/L Normal [facility] Comment on above: Performed By: #### C BC #### [facility] [address] [address] [address] Brea Causey AST [Catalytic activity/Vol] 23 U/L Normal 15-37 [facility] Comment on above: Performed By: #### C BC #### [facility] [address] [address] [address] Brea Causey Bilirubin [Mass/Vol] 0.4 mg/dL Normal 0.2-1.0 [facility] Comment on above: Performed By: #### C BC #### [facility] [address] [place] [address] Dr. Brea Causey Calcium [Mass/Vol] 8.4 mg/dL Critically low 8.5-10.1 [facility] Comment on above: Performed By: #### C BC #### [facility] [address] [address] [address] Brea Causey Chloride [Moles/Vol] 97 mmol/L Critically low 98-107 [facility] Comment on above: Performed By: #### C BC #### [facility] [address] [address] [address] Brea Causey CO2 [Moles/Vol] 26.1 mmol/L Normal 21.0-32.0 [facility] Comment on above: Performed By: #### C BC #### [facility] [address] [address] [address] Brea Causey Creatinine [Mass/Vol] 1.21 mg/dL Normal 0.70-1.30 [facility] Comment on above: Performed By: #### C BC #### [facility] [address] [address] [address] Brea Causey EGFR-AF NIGERIAN >60 Normal >=60 [facility] Comment on above: Performed By: #### C BC #### [facility] [address] [address] [address] Brea Causey EGFR-NON AF NIGERIAN 59 mL/min/1.73m2 Critically low >=60 [facility] Comment on above: Performed By: #### C BC #### [facility] [address] [address] [address] Brea Causey Globulin (S) [Mass/Vol] 3.2 g/dL Normal [facility] Comment on above: Performed By: #### C BC #### [facility] [address] [address] [address] Brea Causey Glucose [Mass/Vol] 227 mg/dL Critically high 74-106 [facility] Comment on above: Performed By: #### C BC #### [facility] [address] [address] [address] Brea Causey Potassium [Moles/Vol] 4.7 mmol/L Normal 3.5-5.1 [facility] Comment on above: Performed By: #### C BC #### [facility] [address] [address] [address] Brea Causey Protein [Mass/Vol] 7.2 g/dL Normal 6.4-8.2 [facility] Comment on above: Performed By: #### C BC #### [facility] [address] [address] [address] Brea Causey Sodium [Moles/Vol] 132 mmol/L Critically low 136-145 [facility] Comment on above: Performed By: #### C BC #### [facility] [address] [address] [address] Brea Causey Urea nitrogen [Mass/Vol] 12.0 mg/dL Normal 7.0-18.0 [facility] Comment on above: Performed By: #### C BC #### [facility] [address] [address] [address] Brea Causey Urea nitrogen/Creatinine [Mass ratio] 9.9 mg/mg Normal [facility] Comment on above: Performed By: #### C BC #### [facility] [address] [place], [place] [address] Dr. Brea Causey CBC W/DIFFon 10-31-2021 ABS IMM GRANS 0.1 10*3/uL Normal 0.0-0.2 [facility] Comment on above: Performed By: #### 4 5506, 77233, 25412, 43880, 56430, 91039 #### [facility] [address] [place] [address], [facility] ABS NEUTROPHILS 5.9 10*3/uL Normal 1.6-7.6 [facility] Comment on above: Performed By: #### 4 5506, 15559, 05330, 78798, 28199, 37270 #### [facility] [address] [facility] [place] [address], [facility] Basophils (Bld) [#/Vol] 0.0 10*3/uL Normal 0.0-0.2 [facility] Comment on above: Performed By: #### 4 5506, 44038, 43152, 55195, 58237, 37894 #### [facility] [address] [facility] [place] [address], [facility] Basophils/100 WBC (Bld) 0.3 % Normal 0.0-1.0 [facility] Comment on above: Performed By: #### 4 5506, 72818, 21805, 26963, 42747, 37438 #### [facility] [address] [facility] [place] [address], [facility] Eosinophils (Bld) [#/Vol] 0.2 10*3/uL Normal 0.0-0.5 [facility] Comment on above: Performed By: #### 4 5506, 82076, 65068, 09697, 87505, 56000 #### [facility] [address] [place] [address], [place] Eosinophils/100 WBC (Bld) 2.3 % Normal 0.0-6.0 [facility] Comment on above: Performed By: #### 4 5506, 30777, 66895, 28745, 45183, 26168 #### [facility] [address] [facility] [address] Erythrocyte distribution width (RBC) [Ratio] 13.4 % Normal 11.5-15.0 [facility] Comment on above: Performed By: #### 4 5506, 35605, 09268, 90309, 40637, 67553 #### [facility] [address] [facility] [address] Hematocrit (Bld) [Volume fraction] 36.1 % Low 39.0-50.0 [facility] Comment on above: Performed By: #### 4 5506, 90326, 20838, 44863, 19173, 96180 #### [facility] [address] [facility] [address] Hemoglobin (Bld) [Mass/Vol] 11.9 g/dL Low 13.0-17.0 [facility] Comment on above: Performed By: #### 4 5506, 89148, 08413, 34571, 55954, 97140 #### [facility] [address] [facility]. [address] IMMATURE GRANS 0.7 % Normal 0.0-1.0 [facility] Comment on above: Performed By: #### 4 5506, 40037, 53853, 64126, 48701, 80694 #### [facility] [address] [facility]. [address] Lymphocytes (Bld) [#/Vol] 0.9 10*3/uL Low 1.2-4.0 [facility] Comment on above: Performed By: #### 4 5506, 36572, 02558, 89219, 35965, 79563 #### [facility] [address] Lymphocytes/100 WBC (Bld) 12.1 % Low 20.0-45.0 [facility] Comment on above: Performed By: #### 4 5506, 80966, 48490, 39778, 60088, 22694 #### [facility] [address] [place] [address], [facility] MCH (RBC) [Entitic mass] 29.3 pg Normal 27.0-33.0 [facility] Comment on above: Performed By: #### 4 5506, 47032, 91272, 52455, 62072, 88460 #### [facility] [address] [place] [address], [facility] MCHC (RBC) [Mass/Vol] 33.0 g/dL Normal 32.0-35.0 [facility] Comment on above: Performed By: #### 4 5506, 45464, 10141, 30047, 10570, 55265 #### [facility] [address] [place] [address], [facility] MCV (RBC) [Entitic vol] 88.9 fL Normal 82.0-98.0 [facility] Comment on above: Performed By: #### 4 5506, 82947, 14783, 17164, 01120, 79801 #### [facility] [address] [place] [address], [facility] Monocytes (Bld) [#/Vol] 0.6 10*3/uL Normal 0.1-1.0 [facility] Comment on above: Performed By: #### 4 5506, 05328, 39230, 46491, 80000, 67605 #### [facility] [address] [place] [address], [facility] MONOS 8.3 % Normal 5.0-12.0 [facility] Comment on above: Performed By: #### 4 5506, 65199, 64914, 00617, 40002, 40790 #### [facility] [address] [place] [address], [place] Neutrophils/100 WBC (Bld) 76.3 % High 40.0-72.0 [facility] Comment on above: Performed By: #### 4 5506, 48507, 90228, 71512, 83415, 02274 #### [facility] [address] [place] [address], [facility] Nucleated RBC/100 WBC (Bld) [Ratio] 0 % Normal 0-0 [facility] Comment on above: Performed By: #### 4 5506, 68992, 98219, 92906, 20259, 89661 #### [facility] [address] [place] [address], [facility] PLAT CNT 260 10*3/uL Normal 150-400 [facility] Comment on above: Performed By: #### 4 5506, 96863, 93749, 86700, 11902, 23331 #### [facility] [address] [place] [address], [facility] RBC (Bld) [#/Vol] 4.06 10*6/uL Low 4.20-5.70 [facility] Comment on above: Performed By: #### 4 5506, 49050, 50818, 62348, 94650, 97669 #### [facility] [address] [place] [address], [facility] WBC (Bld) [#/Vol] 7.68 10*3/uL Normal 4.00-10.60 [facility] Comment on above: Performed By: #### 4 5506, 58769, 66251, 20197, 33272, 49795 #### [facility] [address] [place] [address], [place] COMP METABOLIC PANELon 10-31 Albumin [Mass/Vol] 4.4 g/dL Normal 3.5-5.7 [facility] Comment on above: Performed By: #### 4 5506, 29536, 12033, 38796, 19368, 06585 #### [facility] [address] [place] [address], [facility] ALKALINE PHOSPH 132 IU/L High 34-104 [facility] Comment on above: Performed By: #### 4 5506, 23482, 55274, 78719, 07476, 44549 #### [facility] [address] [place] [address], [place] ALT [Catalytic activity/Vol] 26 U/L Normal 7-52 [facility] Comment on above: Performed By: #### 4 5506, 40588, 94283, 10718, 04974, 27408 #### [facility] [address] [place] [address], [place] AST [Catalytic activity/Vol] 17 U/L Normal 13-39 [facility] Comment on above: Performed By: #### 4 5506, 49857, 61111, 38977, 82411, 38429 #### [facility] [address] [place] [address], [facility] Bilirubin [Mass/Vol] 0.4 mg/dL Normal 0.3-1.0 [facility] Comment on above: Performed By: #### 4 5506, 00522, 80524, 78505, 07856, 30385 #### [facility] [address] [place] [address], [place] Calcium [Mass/Vol] 8.6 mg/dL Normal 8.6-10.3 [facility] Comment on above: Performed By: #### 4 5506, 31264, 04915, 00411, 85253, 86813 #### [facility] [address] [place] [address], [place] Chloride [Moles/Vol] 97 mmol/L Low 98-107 [facility] Comment on above: Performed By: #### 4 5506, 70803, 11866, 28970, 26710, 97439 #### [facility] [address] [place] [address], [place] CO2 [Moles/Vol] 26 mmol/L Normal 21-31 [facility] Comment on above: Performed By: #### 4 5506, 99110, 77548, 26867, 74023, 14247 #### [facility] [address] [place] [address], [place] Creatinine [Mass/Vol] 1.04 mg/dL Normal 0.70-1.30 [facility] Comment on above: Performed By: #### 4 5506, 66396, 83250, 23457, 32600, 53255 #### [facility] [address] [place] [address], [place] GFR/1.73 sq M.predicted among blacks MDRD (S/P/Bld) [Vol rate/Area] mL/min/{1.73_m2} Normal >60 [facility] Comment on above: Performed By: #### 4 5506, 51396, 48580, 76000, 90731, 24894 #### [facility] [address] [place] [address], [place] GFR/1.73 sq M.predicted among non-blacks MDRD (S/P/Bld) [Vol rate/Area] mL/min/{1.73_m2} Normal >60 [facility] Comment on above: Performed By: #### 4 5506, 82877, 30155, 48254, 36060, 51443 #### [facility] [address] [place] [address], [place] Glucose [Mass/Vol] 158 mg/dL High 70-100 [facility] Comment on above: Performed By: #### 4 5506, 09275, 05030, 30197, 85952, 19647 #### [facility] [address] [place] [address], [place] Potassium [Moles/Vol] 4.4 mmol/L Normal 3.5-5.1 [facility] Comment on above: Performed By: #### 4 5506, 92116, 92306, 61401, 04269, 06584 #### [facility] [address] [place] [address], [facility] Protein [Mass/Vol] 6.6 g/dL Normal 6.0-8.3 [facility] Comment on above: Performed By: #### 4 5506, 41038, 18760, 10247, 83114, 63808 #### [facility] [address] [place] [address], [facility] Sodium [Moles/Vol] 131 mmol/L Low 136-145 [facility] Comment on above: Performed By: #### 4 5506, 30695, 53567, 25514, 24938, 35552 #### [facility] [address] [place] [address], [facility] Urea nitrogen [Mass/Vol] 15 mg/dL Normal 7-25 [facility] Comment on above: Performed By: #### 4 5506, 30874, 42925, 50591, 10050, 49765 #### [facility] [address] [place] [address], [facility] DIRECT BILIon 10-31-2021 Bilirubin.direct [Mass/Vol] 0.1 mg/dL Normal 0.0-0.2 [facility] Comment on above: Performed By: #### 4 5506, 84240, 81358, 77675, 06752, 72357 #### [facility] [address] [place] [address], [facility] LIPID PROFILEon 10-31-2021 Cholesterol [Mass/Vol] 70 mg/dL Low 120-200 Th e [facility] Comment on above: Result Comment: CHOL ESTEROL REFERENCE RANGE: 20 YEARS AND OLDER CARDIOVASCULAR RISK Less than 200 mg/dl Low Risk 200 to 239 mg/dl Borderline Risk 240 mg/dl and greater High Risk Performed By: #### 4 5506, 50796, 22256, 56548, 83168, 73451 #### [facility] [address] [place] [address], [place] Cholesterol in HDL [Mass/Vol] 35 mg/dL Normal 23-92 [facility] Comment on above: Result Comment: Slig ht variation in normal range could be due to gender and/or age. HDL CHOLESTEROL REFERENCE RANGE: 20 years and older Cardiovascular Risk > or =60 mg/dL Desirable 40 TO 59 mg/dL Low Risk <40 mg/dL High Risk Performed By: #### 4 5506, 18242, 42156, 42387, 25315, 27509 #### [facility] [address] [place] [address], [place] Cholesterol in LDL [Mass/Vol] 20 mg/dL Normal 0-130 [facility] Comment on above: Result Comment: LDL IS A CALCULATION LDL IS ONLY VALID IF THE TRIG IS LESS THAN 400. Performed By: #### 4 5506, 11949, 79713, 38125, 96860, 60707 #### [facility] [address] [place] [address], [place] Cholesterol.total/Chol esterol in HDL [Mass ratio] 2.0 {ratio} Normal .0-4.5 [facility] Comment on above: Performed By: #### 4 5506, 05331, 52709, 78531, 33992, 22904 #### [facility] [address] [place] [address], [place] NON-HDL CHOLESTEROL 35 mg/dL Normal [facility] Comment on above: Performed By: #### 4 5506, 49976, 03749, 46418, 91918, 53957 #### [facility] [address] [place] [address], [place] Triglyceride [Mass/Vol] 73 mg/dL Normal 40-149 [facility] Comment on above: Result Comment: TRIG LYCERIDE REFERENCE RANGE: 20 YEARS AND OLDER CARDIOVASCULAR RISK LESS THAN 150 mg/dl LOW RISK 150 TO 199 mg/dl BORDERLINE RISK 200 mg/dl AND GREATER HIGH RISK Performed By: #### 4 5506, 79807, 30759, 15747, 38620, 87397 #### [facility] [address] [place] [address], [facility] VLDL CHOL 15 mg/dL Normal 0-40 [facility] Comment on above: Performed By: #### 4 5506, 47008, 14716, 84379, 10409, 94197 #### [facility] [address] [place] [address], [facility] MAGNESIUM BLOODon 10-31-2021 Magnesium [Mass/Vol] 1.1 mg/dL Critically low 1.9-2.7 [facility] Comment on above: Performed By: #### 4 5506, 51419, 14796, 71987, 26262, 66408 #### [facility] [address] [place] [address], [facility] PHOSPHORUS BLOODon Phosphate [Mass/Vol] 3.0 mg/dL Normal 2.5-5.0 [facility] Comment on above: Performed By: #### 4 5506, 88335, 70499, 05367, 63925, 16037 #### [facility] [address] [place] [address], [facility] PROSPERAon 10-31-2021 PROSPERA KIT Results to be mailed directly to physician's office by reference lab. Normal [facility] Comment on above: Result Comment: Test performed by [id number] [place] [address] Specimen collected for transplant patient and [facility] per Dr instructions. No charge. No result expected. For billing and tracking purposes only. Performed By: #### 4 5506, 67771, 60355, 68620, 61085, 37697 #### [facility] [address] RESULT Results to be mailed directly to physician's office by reference lab. Normal [facility] Comment on above: Performed By: #### 4 5506, 46284, 55069, 20482, 41413, 46551 #### [address] TACROLIMUSon 10-31-2021 Tacrolimus (Bld) [Mass/Vol] 7.6 ng/mL Normal 5.0-20.0 [facility] Comment on above: Result Comment: The [employer] Tacrolimus assay is a delayed one-step immunoassay for the quantitative determination of tacrolimus in human whole blood using the chemiluminescent microparticle immunoassay (CMIA) technology with flexible assay protocols, referred to as Chemiflex. Performed By: #### 4 5506, 94845, 65450, 94818, 35942, 66263 #### [address] URIC ACID BLOODon 10-31-2021 Urate [Mass/Vol] 7.8 mg/dL High 4.4-7.6 [facility] Comment on above: Performed By: #### 4 5506, 57705, 59034, 61013, 67850, 95497 #### [address] NM PARATHYROID WITH SPECT AN D CTon 07-24-2021 NM PARATHYROID WITH SPECT AND CT [facility] Department of Radiology [address] [place], [place] [address] Patient Name: ROGER KERR : 1950 Sex: M Age: Race: White Pt. Location: Patient Status: D Ordered Date: 06/26/2021 8:40:00 AM Completed Date: 07/24/2021 01:21 PM Requesting Provider: NAGA BOSCH Attending Provider: NAGA BOSCH Report Copy To: JERICHO MCCARTHY Signs & Symptoms: E21.3 Hyperparathyroidism, unspecified I10 History: Sammi NPC Req. per [place] A/B for CPT 92645 *SLA Comments: , , , Ordering Provider [...] imaging study with SPECT. Electronically signed: Nan Allen. Transcribed by: [email or web address], User Resident: Electronically Signed by: NAN ALLEN @ 07/27/2021 12:13 PM Normal [facility] Comment on above: Order Comment: , , = ========= , Ordering Provider - NAGA BOSCH MD , CBC W/DIFFon 06-22-2021 ABS IMM GRANS 0.1 10*3/uL Normal 0.0-0.2 [facility] Comment on above: Performed By: #### 4 5506, 40585, 13500, 75362, 03669, 19417 #### [facility] [address] [facility] [place] [address], [facility] ABS NEUTROPHILS 4.7 10*3/uL Normal 1.6-7.6 [facility] Comment on above: Performed By: #### 4 5506, 63714, 67054, 36219, 92099, 44772 #### [facility] [address] [facility] [place] [address], [facility] Basophils (Bld) [#/Vol] 0.0 10*3/uL Normal 0.0-0.2 [facility] Comment on above: Performed By: #### 4 5506, 56198, 29886, 55071, 62977, 98755 #### [facility] [address] [facility] [place] [address], [facility] Basophils/100 WBC (Bld) 0.6 % Normal 0.0-1.0 [facility] Comment on above: Performed By: #### 4 5506, 08117, 75066, 58958, 19054, 99812 #### [facility] [address] [facility] [place] [address], [facility] Eosinophils (Bld) [#/Vol] 0.2 10*3/uL Normal 0.0-0.5 [facility] Comment on above: Performed By: #### 4 5506, 43162, 93529, 32963, 24907, 36058 #### [facility] [address] [place] [address], [facility] Eosinophils/100 WBC (Bld) 2.5 % Normal 0.0-6.0 [facility] Comment on above: Performed By: #### 4 5506, 73404, 11029, 51945, 24036, 91804 #### [facility] [address] Erythrocyte distribution width (RBC) [Ratio] 13.6 % Normal 11.5-15.0 [facility] Comment on above: Performed By: #### 4 5506, 88668, 15028, 62260, 74464, 68072 #### [facility] [address] Hematocrit (Bld) [Volume fraction] 36.3 % Low 39.0-50.0 [facility] Comment on above: Performed By: #### 4 5506, 33228, 75661, 30299, 64491, 72985 #### [facility] [address] [facility] [address] Hemoglobin (Bld) [Mass/Vol] 11.7 g/dL Low 13.0-17.0 [facility] Comment on above: Performed By: #### 4 5506, 10305, 41233, 30069, 18201, 55771 #### [facility] [address] [facility] IMMATURE GRANS 0.8 % Normal 0.0-1.0 [facility] Comment on above: Performed By: #### 4 5506, 02160, 97023, 83304, 02054, 96976 #### [facility] [address] [facility] Lymphocytes (Bld) [#/Vol] 0.9 10*3/uL Low 1.2-4.0 [facility] Comment on above: Performed By: #### 4 5506, 40447, 72510, 35047, 27515, 03165 #### [facility] [address] [place] [address], [facility] Lymphocytes/100 WBC (Bld) 13.6 % Low 20.0-45.0 [facility] Comment on above: Performed By: #### 4 5506, 44669, 49727, 15885, 74784, 97565 #### [facility] [address] [facility] MCH (RBC) [Entitic mass] 28.6 pg Normal 27.0-33.0 [facility] Comment on above: Performed By: #### 4 5506, 42201, 73213, 90137, 86483, 25500 #### [facility] [address] [facility] [address] MCHC (RBC) [Mass/Vol] 32.2 g/dL Normal 32.0-35.0 [facility] Comment on above: Performed By: #### 4 5506, 60315, 21767, 82937, 27381, 67331 #### [facility] [address] [facility] [address] MCV (RBC) [Entitic vol] 88.8 fL Normal 82.0-98.0 [facility] Comment on above: Performed By: #### 4 5506, 60068, 46225, 18156, 46312, 37118 #### [facility] [address] [facility]. [address] Monocytes (Bld) [#/Vol] 0.6 10*3/uL Normal 0.1-1.0 [facility] Comment on above: Performed By: #### 4 5506, 50294, 34367, 83361, 09035, 54862 #### [facility] [address] [facility]. [address] MONOS 9.6 % Normal 5.0-12.0 [facility] Comment on above: Performed By: #### 4 5506, 04337, 75057, 80090, 46130, 04665 #### [facility] [address] [facility] Neutrophils/100 WBC (Bld) 72.9 % High 40.0-72.0 [facility] Comment on above: Performed By: #### 4 5506, 67395, 34392, 61808, 10529, 39804 #### [facility] [address] [place] [address], [facility] Nucleated RBC/100 WBC (Bld) [Ratio] 0 % Normal 0-0 [facility] Comment on above: Performed By: #### 4 5506, 85141, 66949, 41273, 34158, 90525 #### [facility] [address] [facility] [place] [address], [facility] PLAT CNT 263 10*3/uL Normal 150-400 [facility] Comment on above: Performed By: #### 4 5506, 46054, 28438, 88731, 89513, 25267 #### [facility] [address] [facility]. [address] RBC (Bld) [#/Vol] 4.09 10*6/uL Low 4.20-5.70 [facility] Comment on above: Performed By: #### 4 5506, 86827, 70667, 82019, 04813, 66919 #### [facility] [address] [facility] [place] [address], [facility] WBC (Bld) [#/Vol] 6.45 10*3/uL Normal 4.00-10.60 [facility] Comment on above: Performed By: #### 4 5506, 34145, 84939, 60216, 01951, 81241 #### [facility] [address] [facility] [place] [address], [facility] COMP METABOLIC PANELon 06-22 Albumin [Mass/Vol] 4.3 g/dL Normal 3.5-5.7 [facility] Comment on above: Performed By: #### 4 5506, 85796, 35401, 97124, 34134, 52897 #### [facility] [address] [place] [address], [place] ALKALINE PHOSPH 143 IU/L High 34-104 [facility] Comment on above: Performed By: #### 4 5506, 78315, 46531, 78343, 82754, 50932 #### [facility] [address] [place] [address], [place] ALT [Catalytic activity/Vol] 18 U/L Normal 7-52 [facility] Comment on above: Performed By: #### 4 5506, 74066, 45057, 28785, 49486, 54716 #### [facility] [address] [place] [address], [place] AST [Catalytic activity/Vol] 15 U/L Normal 13-39 [facility] Comment on above: Performed By: #### 4 5506, 16686, 56622, 89586, 24817, 05026 #### [facility] [address] [place] [address], [place] Bilirubin [Mass/Vol] 0.3 mg/dL Normal 0.3-1.0 [facility] Comment on above: Performed By: #### 4 5506, 89104, 70362, 67145, 44373, 53047 #### [facility] [address] [place] [address], [place] Calcium [Mass/Vol] 10.6 mg/dL High 8.6-10.3 [facility] Comment on above: Performed By: #### 4 5506, 38565, 24831, 87212, 83553, 17943 #### [facility] [address] [place] [address], [place] Chloride [Moles/Vol] 102 mmol/L Normal 98-107 [facility] Comment on above: Performed By: #### 4 5506, 28978, 66654, 38802, 37284, 23669 #### [facility] [address] [place] [address], [place] CO2 [Moles/Vol] 24 mmol/L Normal 21-31 [facility] Comment on above: Performed By: #### 4 5506, 29686, 79391, 22567, 50515, 75723 #### [facility] [address] [place] [address], [place] Creatinine [Mass/Vol] 1.04 mg/dL Normal 0.70-1.30 [facility] Comment on above: Performed By: #### 4 5506, 68526, 10777, 05468, 73587, 05543 #### [facility] [address] [place] [address], [place] GFR/1.73 sq M.predicted among blacks MDRD (S/P/Bld) [Vol rate/Area] mL/min/{1.73_m2} Normal >60 [facility] Comment on above: Performed By: #### 4 5506, 55428, 60942, 30040, 80858, 76127 #### [facility] [address] [place] [address], [place] GFR/1.73 sq M.predicted among non-blacks MDRD (S/P/Bld) [Vol rate/Area] mL/min/{1.73_m2} Normal >60 [facility] Comment on above: Performed By: #### 4 5506, 53162, 26038, 45189, 07853, 16348 #### [facility] [address] [place] [address], [place] Glucose [Mass/Vol] 167 mg/dL High 70-100 [facility] Comment on above: Performed By: #### 4 5506, 48850, 25724, 31637, 84673, 43037 #### [facility] [address] [place] [address], [place] Potassium [Moles/Vol] 5.3 mmol/L High 3.5-5.1 [facility] Comment on above: Performed By: #### 4 5506, 93595, 41723, 99047, 26745, 46441 #### [facility] [address] [place] [address], [facility] Protein [Mass/Vol] 6.5 g/dL Normal 6.0-8.3 [facility] Comment on above: Performed By: #### 4 5506, 05648, 96140, 08707, 37129, 37839 #### [facility] [address] [place] [address], [facility] Sodium [Moles/Vol] 134 mmol/L Low 136-145 [facility] Comment on above: Performed By: #### 4 5506, 55653, 00280, 85113, 26357, 53311 #### [facility] [address] [place] [address], [facility] Urea nitrogen [Mass/Vol] 11 mg/dL Normal 7-25 [facility] Comment on above: Performed By: #### 4 5506, 21766, 29093, 23564, 90347, 37125 #### [facility] [address] [place] [address], [facility] DIRECT BILIon 06-22-2021 Bilirubin.direct [Mass/Vol] 0.1 mg/dL Normal 0.0-0.2 [facility] Comment on above: Performed By: #### 4 5506, 91134, 72405, 59367, 80652, 75503 #### [facility] [address] [place] [address], [facility] LIPID PROFILEon 06-22-2021 Cholesterol [Mass/Vol] 77 mg/dL Low 120-200 Th e [facility] Comment on above: Result Comment: CHOL ESTEROL REFERENCE RANGE: 20 YEARS AND OLDER CARDIOVASCULAR RISK Less than 200 mg/dl Low Risk 200 to 239 mg/dl Borderline Risk 240 mg/dl and greater High Risk Performed By: #### 4 5506, 13634, 04465, 61636, 40194, 37666 #### [facility] [address] [place] [address], [place] Cholesterol in HDL [Mass/Vol] 40 mg/dL Normal 23-92 [facility] Comment on above: Result Comment: Slig ht variation in normal range could be due to gender and/or age. HDL CHOLESTEROL REFERENCE RANGE: 20 years and older Cardiovascular Risk > or =60 mg/dL Desirable 40 TO 59 mg/dL Low Risk <40 mg/dL High Risk Performed By: #### 4 5506, 63528, 35390, 18443, 86245, 83473 #### [facility] [address] [place] [address], [place] Cholesterol in LDL [Mass/Vol] 24 mg/dL Normal 0-130 [facility] Comment on above: Result Comment: LDL IS A CALCULATION LDL IS ONLY VALID IF THE TRIG IS LESS THAN 400. Performed By: #### 4 5506, 18620, 36037, 49179, 87458, 12481 #### [facility] [address] [place] [address], [place] Cholesterol.total/Chol esterol in HDL [Mass ratio] 1.9 {ratio} Normal .0-4.5 [facility] Comment on above: Performed By: #### 4 5506, 48969, 10124, 87342, 54207, 12337 #### [facility] [address] [place] [address], [place] NON-HDL CHOLESTEROL 37 mg/dL Normal [facility] Comment on above: Performed By: #### 4 5506, 09192, 56953, 58350, 97868, 68951 #### [facility] [facility] [address] [place] [address], [place] Triglyceride [Mass/Vol] 63 mg/dL Normal 40-149 [facility] Comment on above: Result Comment: TRIG LYCERIDE REFERENCE RANGE: 20 YEARS AND OLDER CARDIOVASCULAR RISK LESS THAN 150 mg/dl LOW RISK 150 TO 199 mg/dl BORDERLINE RISK 200 mg/dl AND GREATER HIGH RISK Performed By: #### 4 5506, 25977, 17981, 38214, 71222, 83341 #### [facility] [address] [place] [address], [facility] VLDL CHOL 13 mg/dL Normal 0-40 [facility] Comment on above: Performed By: #### 4 5506, 57076, 94383, 94494, 75938, 81547 #### [facility] [address] [facility] [place] [address], [facility] MAGNESIUM BLOODon 06-22-2021 Magnesium [Mass/Vol] 1.4 mg/dL Low 1.9-2.7 [facility] Comment on above: Performed By: #### 4 5506, 89109, 05137, 83825, 05446, 92561 #### [facility] [address] [facility] [place] [address], [facility] PHOSPHORUS BLOODon Phosphate [Mass/Vol] 2.5 mg/dL Normal 2.5-5.0 [facility] Comment on above: Performed By: #### 4 5506, 84757, 61124, 15609, 94935, 21540 #### [facility] [address] [facility]. [address] PTH INTACTon 06-22-2021 PTH INTACT 155 pg/mL High 12-88 [facility] Comment on above: Performed By: #### 4 5506, 33098, 26050, 33820, 03280, 99528 #### [facility] [address] [facility]. [address] TACROLIMUSon 06-22-2021 Tacrolimus (Bld) [Mass/Vol] 21.0 ng/mL High 5.0-20.0 [facility] Comment on above: Result Comment: The [employer] DEVELOPMENT MANAGER Tacrolimus assay is a delayed one-step immunoassay for the quantitative determination of tacrolimus in human whole blood using the chemiluminescent microparticle immunoassay (CMIA) technology with flexible assay protocols, referred to as Chemiflex. Performed By: #### 4 5506, 40465, 44879, 15743, 93002, 96259 #### [facility] [address] [facility] URIC ACID BLOODon 06-22-2021 Urate [Mass/Vol] 7.9 mg/dL High 4.4-7.6 [facility] Comment on above: Performed By: #### 4 5506, 55907, 15630, 59617, 63570, 67116 #### [facility] [address] [facility]. [address] CBC W/DIFFon 04-19-2021 ABS IMM GRANS 0.1 10*3/uL Normal 0.0-0.2 [facility] Comment on above: Performed By: #### 4 5506, 01861, 11930, 67552, 71632, 91690 #### [facility] [address] ABS NEUTROPHILS 5.2 10*3/uL Normal 1.6-7.6 [facility] Comment on above: Performed By: #### 4 5506, 32217, 50812, 83239, 22863, 88354 #### [facility] [address] [place] [address], [facility] Basophils (Bld) [#/Vol] 0.0 10*3/uL Normal 0.0-0.2 [facility] Comment on above: Performed By: #### 4 5506, 83863, 40472, 98941, 40189, 34773 #### [facility] [address] [facility] [place] [address], [facility] Basophils/100 WBC (Bld) 0.4 % Normal 0.0-1.0 [facility] Comment on above: Performed By: #### 4 5506, 76123, 93011, 88083, 55169, 36554 #### [facility] [address] [facility] [place] [address], [facility] Eosinophils (Bld) [#/Vol] 0.2 10*3/uL Normal 0.0-0.5 [facility] Comment on above: Performed By: #### 4 5506, 13677, 50986, 75713, 63917, 59303 #### [facility] [address] [place] [address], [facility] Eosinophils/100 WBC (Bld) 2.9 % Normal 0.0-6.0 [facility] Comment on above: Performed By: #### 4 5506, 72298, 63001, 56230, 63968, 26763 #### [facility] [address] Erythrocyte distribution width (RBC) [Ratio] 13.3 % Normal 11.5-15.0 [facility] Comment on above: Performed By: #### 4 5506, 72319, 89266, 70947, 78129, 98671 #### [facility] [address] Hematocrit (Bld) [Volume fraction] 37.1 % Low 39.0-50.0 [facility] Comment on above: Performed By: #### 4 5506, 11233, 28462, 25707, 06032, 75415 #### [facility] [address] Hemoglobin (Bld) [Mass/Vol] 11.7 g/dL Low 13.0-17.0 [facility] Comment on above: Performed By: #### 4 5506, 04781, 18773, 28348, 45308, 04233 #### [facility] [address] IMMATURE GRANS 0.9 % Normal 0.0-1.0 [facility] Comment on above: Performed By: #### 4 5506, 63170, 93415, 16292, 66108, 83743 #### [facility] [address] Lymphocytes (Bld) [#/Vol] 0.9 10*3/uL Low 1.2-4.0 [facility] Comment on above: Performed By: #### 4 5506, 27136, 34676, 29799, 64115, 54084 #### [facility] [address] Lymphocytes/100 WBC (Bld) 12.5 % Low 20.0-45.0 [facility] Comment on above: Performed By: #### 4 5506, 26292, 28859, 51573, 08634, 55520 #### [facility] [address] MCH (RBC) [Entitic mass] 29.0 pg Normal 27.0-33.0 [facility] Comment on above: Performed By: #### 4 5506, 37799, 79060, 11062, 90083, 51155 #### [facility] [address] MCHC (RBC) [Mass/Vol] 31.5 g/dL Low 32.0-35.0 [facility] Comment on above: Performed By: #### 4 5506, 34260, 92921, 94099, 82357, 59228 #### [facility] [address] MCV (RBC) [Entitic vol] 92.1 fL Normal 82.0-98.0 [facility] Comment on above: Performed By: #### 4 5506, 46494, 53056, 31987, 42682, 94910 #### [facility] [address] [place] [address], [facility] Monocytes (Bld) [#/Vol] 0.6 10*3/uL Normal 0.1-1.0 [facility] Comment on above: Performed By: #### 4 5506, 85181, 10613, 16456, 49135, 91996 #### [facility] [address] [place] [address], [facility] MONOS 8.6 % Normal 5.0-12.0 [facility] Comment on above: Performed By: #### 4 5506, 83881, 20155, 36586, 12473, 11857 #### [facility] [address] [place] [id number], [facility] Neutrophils/100 WBC (Bld) 74.7 % High 40.0-72.0 [facility] Comment on above: Performed By: #### 4 5506, 48214, 59490, 94421, 56806, 26445 #### [facility] [address] [place] [id number], [facility] Nucleated RBC/100 WBC (Bld) [Ratio] 0 % Normal 0-0 [facility] Comment on above: Performed By: #### 4 5506, 70424, 06757, 34763, 96657, 17254 #### [facility] [address] [facility] [place] [address], [facility] PLAT CNT 290 10*3/uL Normal 150-400 [facility] Comment on above: Performed By: #### 4 5506, 36522, 54933, 77329, 42670, 80415 #### [facility] [address] [facility] [place] [address], [facility] RBC (Bld) [#/Vol] 4.03 10*6/uL Low 4.20-5.70 [facility] Comment on above: Performed By: #### 4 5506, 47423, 29285, 78267, 01686, 35349 #### [facility] [address] [place] [address], [place] WBC (Bld) [#/Vol] 6.96 10*3/uL Normal 4.00-10.60 [facility] Comment on above: Performed By: #### 4 5506, 26524, 87231, 94345, 35749, 23698 #### [facility] [address] [place] [address], [facility] COMP METABOLIC PANELon 04-19 Albumin [Mass/Vol] 4.3 g/dL Normal 3.5-5.7 [facility] Comment on above: Performed By: #### 4 5506, 37544, 22816, 79820, 92170, 96766 #### [facility] [address] [place] [address], [facility] ALKALINE PHOSPH 137 IU/L High 34-104 [facility] Comment on above: Performed By: #### 4 5506, 95045, 32284, 14375, 04073, 72327 #### [facility] [address] [place] [address], [facility] ALT [Catalytic activity/Vol] 17 U/L Normal 7-52 [facility] Comment on above: Performed By: #### 4 5506, 71736, 05848, 21937, 93453, 18551 #### [facility] [address] [place] [address], [facility] AST [Catalytic activity/Vol] 16 U/L Normal 13-39 [facility] Comment on above: Performed By: #### 4 5506, 50248, 80402, 51264, 82628, 98989 #### [facility] [address] [place] [address], [place] Bilirubin [Mass/Vol] 0.4 mg/dL Normal 0.3-1.0 [facility] Comment on above: Performed By: #### 4 5506, 70399, 19696, 61854, 09373, 14198 #### [facility] [address] [place] [address], [place] Calcium [Mass/Vol] 10.5 mg/dL High 8.6-10.3 [facility] Comment on above: Performed By: #### 4 5506, 39234, 83411, 38842, 48234, 46435 #### [facility] [address] [place] [address], [place] Chloride [Moles/Vol] 99 mmol/L Normal 98-107 [facility] Comment on above: Performed By: #### 4 5506, 88225, 71034, 15474, 41486, 67295 #### [facility] [address] [place] [address], [place] CO2 [Moles/Vol] 27 mmol/L Normal 21-31 [facility] Comment on above: Performed By: #### 4 5506, 93242, 15077, 59584, 25869, 81058 #### [facility] [address] [place] [address], [place] Creatinine [Mass/Vol] 1.04 mg/dL Normal 0.70-1.30 [facility] Comment on above: Performed By: #### 4 5506, 65186, 44875, 95310, 19054, 95085 #### [facility] [address] [place] [address], [place] GFR/1.73 sq M.predicted among blacks MDRD (S/P/Bld) [Vol rate/Area] mL/min/{1.73_m2} Normal >60 [facility] Comment on above: Performed By: #### 4 5506, 32290, 16321, 41604, 50161, 76509 #### [facility] [address] [place] [address], [place] GFR/1.73 sq M.predicted among non-blacks MDRD (S/P/Bld) [Vol rate/Area] mL/min/{1.73_m2} Normal >60 [facility] Comment on above: Performed By: #### 4 5506, 36749, 37667, 28073, 91187, 98040 #### [facility] [address] [place] [address], [place] Glucose [Mass/Vol] 139 mg/dL High 70-100 [facility] Comment on above: Performed By: #### 4 5506, 35069, 93901, 49625, 84852, 74931 #### [facility] [address] [place] [address], [place] Potassium [Moles/Vol] 5.1 mmol/L Normal 3.5-5.1 [facility] Comment on above: Performed By: #### 4 5506, 26326, 80625, 79105, 79087, 99229 #### [facility] [address] [place] [address], [place] Protein [Mass/Vol] 6.5 g/dL Normal 6.0-8.3 [facility] Comment on above: Performed By: #### 4 5506, 02005, 40468, 56415, 53584, 83530 #### [facility] [address] [place] [address], [place] Sodium [Moles/Vol] 133 mmol/L Low 136-145 [facility] Comment on above: Performed By: #### 4 5506, 82027, 06748, 87562, 72533, 94503 #### [facility] [address] [place] [address], [place] Urea nitrogen [Mass/Vol] 11 mg/dL Normal 7-25 [facility] Comment on above: Performed By: #### 4 5506, 49461, 83703, 81096, 38927, 62620 #### [facility] [address] [place] [address], [place] DIRECT BILIon 04-19-2021 Bilirubin.direct [Mass/Vol] 0.1 mg/dL Normal 0.0-0.2 [facility] Comment on above: Performed By: #### 4 5506, 98327, 93235, 26201, 50820, 18434 #### [facility] [address] [place] [address], [place] LIPID PROFILEon 04-19-2021 Cholesterol [Mass/Vol] 82 mg/dL Low 120-200 Th [facility] Comment on above: Result Comment: CHOL ESTEROL REFERENCE RANGE: 20 YEARS AND OLDER CARDIOVASCULAR RISK Less than 200 mg/dl Low Risk 200 to 239 mg/dl Borderline Risk 240 mg/dl and greater High Risk Performed By: #### 4 5506, 09607, 72553, 31435, 05052, 71804 #### [facility] [address] [place] [address], [facility] Cholesterol in HDL [Mass/Vol] 38 mg/dL Normal 23-92 [facility] Comment on above: Result Comment: Slig ht variation in normal range could be due to gender and/or age. HDL CHOLESTEROL REFERENCE RANGE: 20 years and older Cardiovascular Risk > or =60 mg/dL Desirable 40 TO 59 mg/dL Low Risk <40 mg/dL High Risk Performed By: #### 4 5506, 56765, 43707, 78273, 99758, 88514 #### [facility] [address] [place] [address], [facility] Cholesterol in LDL [Mass/Vol] 25 mg/dL Normal 0-130 [facility] Comment on above: Result Comment: LDL IS A CALCULATION LDL IS ONLY VALID IF THE TRIG IS LESS THAN 400. Performed By: #### 4 5506, 17538, 09765, 39103, 74163, 22117 #### [facility] [address] [place] [address], [facility] Cholesterol.total/Chol esterol in HDL [Mass ratio] 2.2 {ratio} Normal .0-4.5 [facility] Comment on above: Performed By: #### 4 5506, 22195, 39414, 51832, 89507, 27370 #### [facility] [address] [place] [address], [place] NON-HDL CHOLESTEROL 44 mg/dL Normal [facility] Comment on above: Performed By: #### 4 5506, 63102, 06726, 36727, 09591, 53013 #### [facility] [address] [place] [address], [facility] Triglyceride [Mass/Vol] 93 mg/dL Normal 40-149 [facility] Comment on above: Result Comment: TRIG LYCERIDE REFERENCE RANGE: 20 YEARS AND OLDER CARDIOVASCULAR RISK LESS THAN 150 mg/dl LOW RISK 150 TO 199 mg/dl BORDERLINE RISK 200 mg/dl AND GREATER HIGH RISK Performed By: #### 4 5506, 25997, 53906, 36334, 16297, 40554 #### [facility] [address] [place] [address], [facility] VLDL CHOL 19 mg/dL Normal 0-40 [facility] Comment on above: Performed By: #### 4 5506, 51885, 67377, 67084, 72740, 36986 #### [facility] [address] [place] [address], [facility] MAGNESIUM BLOODon 04-19-2021 Magnesium [Mass/Vol] 1.8 mg/dL Low 1.9-2.7 [facility] Comment on above: Performed By: #### 4 5506, 18843, 81216, 31360, 22437, 16075 #### [facility] [address] [place] [address], [facility] PHOSPHORUS BLOODon Phosphate [Mass/Vol] 3.0 mg/dL Normal 2.5-5.0 [facility] Comment on above: Performed By: #### 4 5506, 67908, 07699, 60619, 75412, 82792 #### [facility] [address] [place] [address], [facility] PROSPERAon 04-19-2021 PROSPERA KIT Results to be mailed directly to physician's office by reference lab. Normal [facility] Comment on above: Result Comment: Test performed by [id number] [employer] [id number] [address] No result expected. For billing and tracking purposes only. Specimen collected for transplant patient and sent to requesting hospital per Dr instructions. No charge. Performed By: #### 4 5506, 95338, 32538, 69698, 20682, 91183 #### [facility] [address] RESULT Results to be mailed directly to physician's office by reference lab. Normal [facility] Comment on above: Performed By: #### 4 5506, 34886, 82088, 55669, 37604, 13731 #### [facility] [address] TACROLIMUSon 04-19-2021 Tacrolimus (Bld) [Mass/Vol] 7.7 ng/mL Normal 5.0-20.0 [facility] Comment on above: Result Comment: The [employer] DEVELOPMENT MANAGER Tacrolimus assay is a delayed one-step immunoassay for the quantitative determination of tacrolimus in human whole blood using the chemiluminescent microparticle immunoassay (CMIA) technology with flexible assay protocols, referred to as Chemiflex. Performed By: #### 4 5506, 47496, 51823, 44145, 00262, 15070 #### [facility] [address] URIC ACID BLOODon 04-19-2021 Urate [Mass/Vol] 7.9 mg/dL High 4.4-7.6 [facility] Comment on above: Performed By: #### 4 5506, 99997, 45773, 72635, 43730, 54646 #### [facility] [address] CBC W/DIFFon 04-11-2021 ABS IMM GRANS 0.0 10*3/uL Normal 0.0-0.2 [facility] Comment on above: Performed By: #### 4 5506, 97735, 58931, 82675, 53049, 90700 #### [facility] [address] [place] [address], [facility] ABS NEUTROPHILS 4.5 10*3/uL Normal 1.6-7.6 [facility] Comment on above: Performed By: #### 4 5506, 21419, 45261, 71303, 24540, 73808 #### [facility] [address] [place] [address], [facility] Basophils (Bld) [#/Vol] 0.0 10*3/uL Normal 0.0-0.2 [facility] Comment on above: Performed By: #### 4 5506, 23772, 28890, 31066, 14430, 32619 #### [facility] [address] [place] [address], [facility] Basophils/100 WBC (Bld) 0.5 % Normal 0.0-1.0 [facility] Comment on above: Performed By: #### 4 5506, 55437, 93945, 67189, 18184, 77827 #### [facility] [address] [place] [address], [facility] Eosinophils (Bld) [#/Vol] 0.2 10*3/uL Normal 0.0-0.5 [facility] Comment on above: Performed By: #### 4 5506, 92984, 61621, 67992, 64747, 53081 #### [facility] [address] [place] [address], [facility] Eosinophils/100 WBC (Bld) 3.1 % Normal 0.0-6.0 [facility] Comment on above: Performed By: #### 4 5506, 90711, 93556, 82630, 40122, 74052 #### [facility] [address] [place] [id number], [facility] Erythrocyte distribution width (RBC) [Ratio] 13.4 % Normal 11.5-15.0 [facility] Comment on above: Performed By: #### 4 5506, 87020, 51737, 59060, 53363, 87153 #### [facility] [address] Hematocrit (Bld) [Volume fraction] 35.5 % Low 39.0-50.0 [facility] Comment on above: Performed By: #### 4 5506, 28578, 43609, 43309, 76720, 47391 #### [facility] [address] [facility]. [address] Hemoglobin (Bld) [Mass/Vol] 11.7 g/dL Low 13.0-17.0 [facility] Comment on above: Performed By: #### 4 5506, 30336, 74454, 83504, 88212, 22375 #### [facility] [address] IMMATURE GRANS 0.6 % Normal 0.0-1.0 [facility] Comment on above: Performed By: #### 4 5506, 10296, 77802, 98993, 95653, 82011 #### [facility] [address] Lymphocytes (Bld) [#/Vol] 0.8 10*3/uL Low 1.2-4.0 [facility] Comment on above: Performed By: #### 4 5506, 96227, 36577, 65951, 57232, 71250 #### [facility] [address] Lymphocytes/100 WBC (Bld) 12.9 % Low 20.0-45.0 [facility] Comment on above: Performed By: #### 4 5506, 77651, 93704, 33603, 46170, 46954 #### [facility] [address] [place] [address], [facility] MCH (RBC) [Entitic mass] 29.2 pg Normal 27.0-33.0 [facility] Comment on above: Performed By: #### 4 5506, 12481, 10998, 25194, 42145, 29294 #### [facility] [address] MCHC (RBC) [Mass/Vol] 33.0 g/dL Normal 32.0-35.0 [facility] Comment on above: Performed By: #### 4 5506, 35611, 31553, 55168, 44290, 63254 #### [facility] [address] MCV (RBC) [Entitic vol] 88.5 fL Normal 82.0-98.0 [facility] Comment on above: Performed By: #### 4 5506, 86506, 31355, 25307, 00732, 65113 #### [facility] [address] [facility] [place] [address], [facility] Monocytes (Bld) [#/Vol] 0.6 10*3/uL Normal 0.1-1.0 [facility] Comment on above: Performed By: #### 4 5506, 09609, 60546, 55582, 73504, 34947 #### [facility] 3000 [facility]. [address] MONOS 10.3 % Normal 5.0-12.0 [facility] Comment on above: Performed By: #### 4 5506, 36350, 24596, 96311, 67923, 78887 #### [facility] [address] [facility] [address] Neutrophils/100 WBC (Bld) 72.6 % High 40.0-72.0 [facility] Comment on above: Performed By: #### 4 5506, 14820, 83333, 84179, 76353, 28445 #### [facility] [address] [facility] [place] [address], [facility] Nucleated RBC/100 WBC (Bld) [Ratio] 0 % Normal 0-0 [facility] Comment on above: Performed By: #### 4 5506, 60439, 55942, 22642, 86980, 57783 #### [facility] [address] [place] [address], [facility] PLAT CNT 272 10*3/uL Normal 150-400 [facility] Comment on above: Performed By: #### 4 5506, 78141, 82783, 61387, 56929, 04975 #### [facility] [address] [place] [address], [facility] RBC (Bld) [#/Vol] 4.01 10*6/uL Low 4.20-5.70 [facility] Comment on above: Performed By: #### 4 5506, 89453, 69129, 76263, 09788, 83815 #### [facility] [address] [place] [address], [facility] WBC (Bld) [#/Vol] 6.22 10*3/uL Normal 4.00-10.60 [facility] Comment on above: Performed By: #### 4 5506, 16359, 03010, 98492, 09776, 52800 #### [facility] [address] [facility] [place] [address], [facility] COMP METABOLIC PANELon 04-11 Albumin [Mass/Vol] 4.3 g/dL Normal 3.5-5.7 [facility] Comment on above: Performed By: #### 4 5506, 52953, 36810, 75006, 80930, 38016 #### [facility] [address] [place] [address], [facility] ALKALINE PHOSPH 115 IU/L High 34-104 [facility] Comment on above: Performed By: #### 4 5506, 11201, 13925, 53976, 85313, 86543 #### [facility] [address] [place] [address], [facility] ALT [Catalytic activity/Vol] 16 U/L Normal 7-52 [facility] Comment on above: Performed By: #### 4 5506, 70010, 91526, 15231, 50228, 34512 #### [facility] [address] [place] [address], [place] AST [Catalytic activity/Vol] 15 U/L Normal 13-39 [facility] Comment on above: Performed By: #### 4 5506, 46789, 08566, 43279, 57171, 52465 #### [facility] [address] [place] [address], [place] Bilirubin [Mass/Vol] 0.6 mg/dL Normal 0.3-1.0 [facility] Comment on above: Performed By: #### 4 5506, 02162, 95674, 74270, 47882, 42640 #### [facility] [address] [place] [address], [place] Calcium [Mass/Vol] 10.3 mg/dL Normal 8.6-10.3 [facility] Comment on above: Performed By: #### 4 5506, 56358, 83983, 03389, 43555, 90191 #### [facility] [address] [place] [address], [place] Chloride [Moles/Vol] 97 mmol/L Low 98-107 [facility] Comment on above: Performed By: #### 4 5506, 07875, 33671, 21362, 84401, 91032 #### [facility] [address] [place] [address], [place] CO2 [Moles/Vol] 26 mmol/L Normal 21-31 [facility] Comment on above: Performed By: #### 4 5506, 13342, 10915, 78356, 10649, 16326 #### [facility] [address] [place] [address], [place] Creatinine [Mass/Vol] 0.93 mg/dL Normal 0.70-1.30 [facility] Comment on above: Performed By: #### 4 5506, 43156, 92271, 70495, 92915, 36924 #### [facility] [address] [place] [address], [place] GFR/1.73 sq M.predicted among blacks MDRD (S/P/Bld) [Vol rate/Area] mL/min/{1.73_m2} Normal >60 [facility] Comment on above: Performed By: #### 4 5506, 81242, 93844, 77345, 80031, 83505 #### [facility] [address] [place] [address], [place] GFR/1.73 sq M.predicted among non-blacks MDRD (S/P/Bld) [Vol rate/Area] mL/min/{1.73_m2} Normal >60 [facility] Comment on above: Performed By: #### 4 5506, 58797, 52350, 97939, 97666, 96664 #### [facility] [address] [place] [address], [place] Glucose [Mass/Vol] 136 mg/dL High 70-100 [facility] Comment on above: Performed By: #### 4 5506, 44857, 91603, 60346, 06447, 24467 #### [facility] [address] [place] [address], [place] Potassium [Moles/Vol] 5.2 mmol/L High 3.5-5.1 [facility] Comment on above: Performed By: #### 4 5506, 38526, 88003, 17317, 88566, 47821 #### [facility] [address] [place] [address], [place] Protein [Mass/Vol] 6.7 g/dL Normal 6.0-8.3 [facility] Comment on above: Performed By: #### 4 5506, 47491, 68492, 53448, 73482, 88429 #### [facility] [address] [place] [address], [place] Sodium [Moles/Vol] 129 mmol/L Low 136-145 [facility] Comment on above: Performed By: #### 4 5506, 02999, 06552, 94752, 78601, 36562 #### [facility] [address] [place] [address], [facility] Urea nitrogen [Mass/Vol] 10 mg/dL Normal 7-25 [facility] Comment on above: Performed By: #### 4 5506, 15566, 56467, 60234, 33316, 01995 #### [facility] [address] [place] [address], [facility] DIRECT BILIon 04-11-2021 Bilirubin.direct [Mass/Vol] 0.2 mg/dL Normal 0.0-0.2 [facility] Comment on above: Performed By: #### 4 5506, 55209, 17463, 43349, 24448, 08322 #### [facility] [address] [place] [address], [facility] LIPID PROFILEon 04-11-2021 Cholesterol [Mass/Vol] 84 mg/dL Low 120-200 Th [facility] Comment on above: Result Comment: CHOL ESTEROL REFERENCE RANGE: 20 YEARS AND OLDER CARDIOVASCULAR RISK Less than 200 mg/dl Low Risk 200 to 239 mg/dl Borderline Risk 240 mg/dl and greater High Risk Performed By: #### 4 5506, 06482, 94615, 19998, 23802, 19774 #### [facility] [address] [place] [address], [facility] Cholesterol in HDL [Mass/Vol] 41 mg/dL Normal 23-92 [facility] Comment on above: Result Comment: Slig ht variation in normal range could be due to gender and/or age. HDL CHOLESTEROL REFERENCE RANGE: 20 years and older Cardiovascular Risk > or =60 mg/dL Desirable 40 TO 59 mg/dL Low Risk <40 mg/dL High Risk Performed By: #### 4 5506, 50134, 68029, 90728, 65568, 62149 #### [facility] [address] [place] [address], [facility] Cholesterol in LDL [Mass/Vol] 34 mg/dL Normal 0-130 [facility] Comment on above: Result Comment: LDL IS A CALCULATION LDL IS ONLY VALID IF THE TRIG IS LESS THAN 400. Performed By: #### 4 5506, 65390, 17633, 16489, 78404, 09402 #### [facility] [address] [place] [address], [facility] Cholesterol.total/Chol esterol in HDL [Mass ratio] 2.0 {ratio} Normal .0-4.5 [facility] Comment on above: Performed By: #### 4 5506, 48937, 25526, 88448, 34657, 01224 #### [facility] [address] [place] [address], [facility] NON-HDL CHOLESTEROL 43 mg/dL Normal [facility] Comment on above: Performed By: #### 4 5506, 32491, 26563, 80972, 82105, 76155 #### [facility] [address] [place] [address], [facility] Triglyceride [Mass/Vol] 47 mg/dL Normal 40-149 [facility] Comment on above: Result Comment: TRIG LYCERIDE REFERENCE RANGE: 20 YEARS AND OLDER CARDIOVASCULAR RISK LESS THAN 150 mg/dl LOW RISK 150 TO 199 mg/dl BORDERLINE RISK 200 mg/dl AND GREATER HIGH RISK Performed By: #### 4 5506, 50207, 40104, 83096, 88402, 71895 #### [facility] [address] [place] [address], [place] VLDL CHOL 9 mg/dL Normal 0-40 [facility] Comment on above: Performed By: #### 4 5506, 49108, 31178, 30273, 96077, 86287 #### [facility] [address] [place] [address], [place] MAGNESIUM BLOODon 04-11-2021 Magnesium [Mass/Vol] 1.3 mg/dL Low 1.9-2.7 [facility] Comment on above: Performed By: #### 4 5506, 96310, 82259, 90541, 93116, 60840 #### [facility] [address] [place] [address], [facility] PHOSPHORUS BLOODon Phosphate [Mass/Vol] 2.6 mg/dL Normal 2.5-5.0 [facility] Comment on above: Performed By: #### 4 5506, 38206, 05423, 79654, 51233, 54967 #### [facility] [address] TACROLIMUSon 04-11-2021 Tacrolimus (Bld) [Mass/Vol] 8.3 ng/mL Normal 5.0-20.0 [facility] Comment on above: Result Comment: The [employer] Tacrolimus assay is a delayed one-step immunoassay for the quantitative determination of tacrolimus in human whole blood using the chemiluminescent microparticle immunoassay (CMIA) technology with flexible assay protocols, referred to as Chemiflex. Performed By: #### 4 5506, 39686, 98768, 36809, 89290, 45208 #### [facility] [address] [facility] [address] URIC ACID BLOODon 04-11-2021 Urate [Mass/Vol] 8.4 mg/dL High 4.4-7.6 [facility] Comment on above: Performed By: #### 4 5506, 59596, 85080, 90011, 40267, 85966 #### [facility] [address] BK VIRUS QUANTITATION FOR PL ASMAon 02-16-2021 BKV Plasma Quantitation by PCR Not detected Normal [facility] Comment on above: Result Comment: Meth od: BK virus was measured by quantitative polymerase chain reaction using a fluorescent hydrolysis probe targeting the polyomavirus BK [employer]ERK-1 gene. The lower limit of quantitation of the assay is 500 copies of BK genome per milliliter of plasma or urine, and any detectable BK DNA below that level is reported as: Detected, <500 copies/ml. Serial BK virus measurement can be used to monitor disease activity. (Reference: Katina ramirezl. J CLIN MICRO 2004; 42:4278-4982). This test was developed and its performance [...] complexity testing. Performed By: #### 4 5506, 56631, 76277, 97312, 56029, 03910 #### [facility] [address] BKV Plasma Quantitation Log by PCR Not detected Normal [facility] Comment on above: Performed By: #### 4 5506, 94384, 59768, 13664, 29586, 86084 #### [facility] [address] [facility]. [address] CBC W/DIFFon 02-16-2021 ABS IMM GRANS 0.1 10*3/uL Normal 0.0-0.2 [facility] Comment on above: Performed By: #### 4 5506, 17565, 49274, 31042, 93225, 95287 #### [facility] [address] [facility]. [address] ABS NEUTROPHILS 5.8 10*3/uL Normal 1.6-7.6 [facility] Comment on above: Performed By: #### 4 5506, 84444, 82669, 65059, 01104, 41230 #### [facility] [address] Basophils (Bld) [#/Vol] 0.0 10*3/uL Normal 0.0-0.2 [facility] Comment on above: Performed By: #### 4 5506, 78574, 98559, 22136, 41009, 86040 #### [facility] [address] [place] [address], [facility] Basophils/100 WBC (Bld) 0.4 % Normal 0.0-1.0 [facility] Comment on above: Performed By: #### 4 5506, 76438, 81474, 21098, 49818, 46474 #### [facility] [address] [place] [address], [facility] Eosinophils (Bld) [#/Vol] 0.3 10*3/uL Normal 0.0-0.5 [facility] Comment on above: Performed By: #### 4 5506, 46259, 92402, 53824, 81280, 51267 #### [facility] [address] [facility] [place] [address], [facility] Eosinophils/100 WBC (Bld) 3.5 % Normal 0.0-6.0 [facility] Comment on above: Performed By: #### 4 5506, 34369, 95416, 01623, 99979, 29596 #### [facility] [address] [facility] [place] [address], [facility] Erythrocyte distribution width (RBC) [Ratio] 13.6 % Normal 11.5-15.0 [facility] Comment on above: Performed By: #### 4 5506, 39397, 74901, 09055, 05303, 61699 #### [facility] [address] [facility] [address] Hematocrit (Bld) [Volume fraction] 34.1 % Low 39.0-50.0 [facility] Comment on above: Performed By: #### 4 5506, 62902, 48255, 90416, 50890, 63632 #### [facility] [address] [facility] [place] [address], [facility] Hemoglobin (Bld) [Mass/Vol] 11.6 g/dL Low 13.0-17.0 [facility] Comment on above: Performed By: #### 4 5506, 02584, 45961, 71311, 81147, 17855 #### [facility] [address] [place] [address], [facility] IMMATURE GRANS 0.8 % Normal 0.0-1.0 [facility] Comment on above: Performed By: #### 4 5506, 10119, 48628, 20544, 95371, 68062 #### [facility] [address] [facility] [place] [address], [facility] Lymphocytes (Bld) [#/Vol] 0.7 10*3/uL Low 1.2-4.0 [facility] Comment on above: Performed By: #### 4 5506, 96699, 19271, 11867, 78621, 44008 #### [facility] [address] [facility] [place] [address], [facility] Lymphocytes/100 WBC (Bld) 9.2 % Low 20.0-45.0 [facility] Comment on above: Performed By: #### 4 5506, 28568, 98630, 11043, 33667, 37454 #### [facility] [address] [facility]. [address] MCH (RBC) [Entitic mass] 29.5 pg Normal 27.0-33.0 [facility] Comment on above: Performed By: #### 4 5506, 83573, 39950, 07100, 26812, 82737 #### [facility] [address] [facility]. [address] MCHC (RBC) [Mass/Vol] 34.0 g/dL Normal 32.0-35.0 [facility] Comment on above: Performed By: #### 4 5506, 52713, 54928, 24517, 57706, 65735 #### [facility] [address] [place] [address], [facility] MCV (RBC) [Entitic vol] 86.8 fL Normal 82.0-98.0 [facility] Comment on above: Performed By: #### 4 5506, 21969, 82421, 74343, 40908, 30712 #### [facility] [address] [place] [address], [facility] Monocytes (Bld) [#/Vol] 0.8 10*3/uL Normal 0.1-1.0 [facility] Comment on above: Performed By: #### 4 5506, 11106, 08225, 67759, 92741, 21887 #### [facility] [address] [place] [address], [facility] MONOS 10.3 % Normal 5.0-12.0 [facility] Comment on above: Performed By: #### 4 5506, 52881, 51352, 79528, 87360, 75712 #### [facility] [address] [facility] [place] [address], [facility] Neutrophils/100 WBC (Bld) 75.8 % High 40.0-72.0 [facility] Comment on above: Performed By: #### 4 5506, 37522, 85058, 88841, 47369, 43838 #### [facility] [address] [facility] [place] [address], [facility] Nucleated RBC/100 WBC (Bld) [Ratio] 0 % Normal 0-0 [facility] Comment on above: Performed By: #### 4 5506, 44511, 61430, 99958, 32050, 34991 #### [facility] [address] [place] [address], [facility] PLAT CNT 256 10*3/uL Normal 150-400 [facility] Comment on above: Performed By: #### 4 5506, 68770, 73428, 37953, 30255, 31738 #### [facility] [address] [place] [address], [facility] RBC (Bld) [#/Vol] 3.93 10*6/uL Low 4.20-5.70 [facility] Comment on above: Performed By: #### 4 5506, 20904, 87615, 24023, 24018, 75259 #### [facility] [address] [place] [address], [facility] WBC (Bld) [#/Vol] 7.65 10*3/uL Normal 4.00-10.60 [facility] Comment on above: Performed By: #### 4 5506, 19758, 58247, 91897, 16714, 93973 #### [facility] [address] COMP METABOLIC PANELon 02-16 Albumin [Mass/Vol] 4.6 g/dL Normal 3.5-5.7 [facility] Comment on above: Performed By: #### 0 0121, 21229, 98106, 33265, 05349, 01711, 28189, 91285 #### [facility] [address] [facility] [address] ALKALINE PHOSPH 136 IU/L High 34-104 [facility] Comment on above: Performed By: #### 0 0121, 83110, 84290, 35474, 13338, 81739, 66705, 83251 #### [facility] [address] [place] [address], [facility] ALT [Catalytic activity/Vol] 22 U/L Normal 7-52 [facility] Comment on above: Performed By: #### 0 0121, 21060, 53540, 03391, 64965, 87304, 84610, 25307 #### [facility] [address] [place] [address], [facility] AST [Catalytic activity/Vol] 18 U/L Normal 13-39 [facility] Comment on above: Performed By: #### 0 0121, 75450, 33802, 86784, 52748, 08536, 20836, 12276 #### [facility] [address] [place] [address], [facility] Bilirubin [Mass/Vol] 0.5 mg/dL Normal 0.3-1.0 [facility] Comment on above: Performed By: #### 0 0121, 18156, 04566, 60754, 85508, 24371, 06007, 38981 #### [facility] [address] [place] [address], [place] Calcium [Mass/Vol] 10.5 mg/dL High 8.6-10.3 [facility] Comment on above: Performed By: #### 0 0121, 02299, 92750, 41601, 71571, 00881, 86358, 87936 #### [facility] [address] [place] [address], [facility] Chloride [Moles/Vol] 94 mmol/L Low 98-107 [facility] Comment on above: Performed By: #### 0 0121, 89912, 42852, 27308, 33242, 32430, 19071, 58688 #### [facility] [address] [place] [address], [place] CO2 [Moles/Vol] 28 mmol/L Normal 21-31 [facility] Comment on above: Performed By: #### 0 0121, 82999, 33460, 03339, 44495, 86197, 57792, 50530 #### [facility] [address] [place] [address], [place] Creatinine [Mass/Vol] 0.93 mg/dL Normal 0.70-1.30 [facility] Comment on above: Performed By: #### 0 0121, 78825, 93131, 73909, 54692, 49785, 79748, 23933 #### [facility] [address] [place] [address], [place] GFR/1.73 sq M.predicted among blacks MDRD (S/P/Bld) [Vol rate/Area] mL/min/{1.73_m2} Normal >60 [facility] Comment on above: Performed By: #### 0 0121, 43372, 33361, 87313, 62908, 40055, 72657, 76667 #### [facility] [address] [place] [address], [facility] GFR/1.73 sq M.predicted among non-blacks MDRD (S/P/Bld) [Vol rate/Area] mL/min/{1.73_m2} Normal >60 [facility] Comment on above: Performed By: #### 0 0121, 34728, 52159, 01572, 32584, 65227, 37769, 73780 #### [facility] [address] [place] [address], [facility] Glucose [Mass/Vol] 147 mg/dL High 70-100 [facility] Comment on above: Performed By: #### 0 0121, 09103, 50114, 40095, 17654, 51097, 08873, 54247 #### [facility] [address] [place] [address], [place] Potassium [Moles/Vol] 4.6 mmol/L Normal 3.5-5.1 [facility] Comment on above: Performed By: #### 0 0121, 79877, 55443, 94560, 28115, 63397, 89391, 81271 #### [facility] [address] [place] [address], [place] Protein [Mass/Vol] 7.2 g/dL Normal 6.0-8.3 [facility] Comment on above: Performed By: #### 0 0121, 70064, 55435, 88498, 57587, 87211, 77402, 75026 #### [facility] [address] [place] [address], [place] Sodium [Moles/Vol] 129 mmol/L Low 136-145 [facility] Comment on above: Performed By: #### 0 0121, 47018, 86474, 03524, 45369, 48583, 79622, 85952 #### [facility] [address] [place] [address], [facility] Urea nitrogen [Mass/Vol] 15 mg/dL Normal 7-25 [facility] Comment on above: Performed By: #### 0 0121, 03539, 03137, 38724, 93248, 17147, 73956, 11390 #### [facility] [address] [place] [address], [facility] DIRECT BILIon 02-16-2021 Bilirubin.direct [Mass/Vol] 0.2 mg/dL Normal 0.0-0.2 [facility] Comment on above: Performed By: #### 4 5506, 48111, 54628, 37839, 94162, 21197 #### [facility] [address] [place] [address], [facility] HEMOGLOBIN A1Con 02-16-2021 Glucose [Moles/Vol] 154 mmol/L Normal [facility] Comment on above: Performed By: #### 4 5506, 42057, 85331, 54555, 69496, 98716 #### [facility] [address] HbA1c (Bld) [Mass fraction] 7.0 % High 4.0-6.0 [facility] Comment on above: Performed By: #### 4 5506, 69768, 26269, 85831, 26521, 67856 #### [facility] [address] [place] [address], [facility] LIPID PROFILEon 02-16-2021 Cholesterol [Mass/Vol] 78 mg/dL Low 120-200 Th e [facility] Comment on above: Result Comment: CHOL ESTEROL REFERENCE RANGE: 20 YEARS AND OLDER CARDIOVASCULAR RISK Less than 200 mg/dl Low Risk 200 to 239 mg/dl Borderline Risk 240 mg/dl and greater High Risk Performed By: #### 0 0121, 49360, 21641, 36861, 38748, 15018, 04779, 00599 #### [facility] [address] [place] [address], [facility] Cholesterol in HDL [Mass/Vol] 41 mg/dL Normal 23-92 [facility] Comment on above: Result Comment: Slig ht variation in normal range could be due to gender and/or age. HDL CHOLESTEROL REFERENCE RANGE: 20 years and older Cardiovascular Risk > or =60 mg/dL Desirable 40 TO 59 mg/dL Low Risk <40 mg/dL High Risk Performed By: #### 0 0121, 78360, 46670, 22316, 50369, 18597, 62450, 70643 #### [facility] [address] [place] [address], [place] Cholesterol in LDL [Mass/Vol] 28 mg/dL Normal 0-130 [facility] Comment on above: Result Comment: LDL IS A CALCULATION LDL IS ONLY VALID IF THE TRIG IS LESS THAN 400. Performed By: #### 0 0121, 98354, 37431, 60504, 59215, 83575, 14663, 19137 #### [facility] [address] [place] [address], [place] Cholesterol.total/Chol esterol in HDL [Mass ratio] 1.9 {ratio} Normal .0-4.5 [facility] Comment on above: Performed By: #### 0 0121, 85235, 28517, 23706, 42952, 35483, 82035, 49304 #### [facility] [address] [place] [address], [place] NON-HDL CHOLESTEROL 37 mg/dL Normal [facility] Comment on above: Performed By: #### 0 0121, 88851, 66532, 10339, 47357, 73271, 40680, 46756 #### [facility] [address] [place] [address], [place] Triglyceride [Mass/Vol] 44 mg/dL Normal 40-149 [facility] Comment on above: Result Comment: TRIG LYCERIDE REFERENCE RANGE: 20 YEARS AND OLDER CARDIOVASCULAR RISK LESS THAN 150 mg/dl LOW RISK 150 TO 199 mg/dl BORDERLINE RISK 200 mg/dl AND GREATER HIGH RISK Performed By: #### 0 0121, 39025, 70570, 44788, 78304, 74521, 88544, 63182 #### [facility] [address] VLDL CHOL 9 mg/dL Normal 0-40 [facility] Comment on above: Performed By: #### 0 0121, 77962, 64840, 07992, 02844, 95946, 16945, 85346 #### [facility] [address] MAGNESIUM BLOODon 02-16-2021 Magnesium [Mass/Vol] 1.5 mg/dL Low 1.9-2.7 [facility] Comment on above: Performed By: #### 4 5506, 14677, 62945, 93139, 20516, 70053 #### [facility] [address] [facility] [address] PHOSPHORUS BLOODon Phosphate [Mass/Vol] 2.4 mg/dL Low 2.5-5.0 [facility] Comment on above: Performed By: #### 0 0121, 83574, 22181, 08108, 73821, 44330, 47857, 20351 #### [facility] [address] [facility] [address] PROSPERAon 02-16-2021 PROSPERA KIT Results to be mailed directly to physician's office by reference lab. Normal [facility] Comment on above: Result Comment: Test performed by [id number] [place] [address] No result expected. For billing and tracking purposes only. Specimen collected for transplant patient [facility] per Dr instructions. No charge. Performed By: #### 4 5506, 61103, 33322, 18279, 89314, 75545 #### [facility] [address] [place] [address], [place] RESULT Results to be mailed directly to physician's office by reference lab. Normal [facility] Comment on above: Performed By: #### 4 5506, 78246, 19306, 02643, 39788, 92693 #### [facility] [address] [place] [address], [place] PTH INTACTon 02-16-2021 PTH INTACT 123 pg/mL High 12-88 [facility] Comment on above: Performed By: #### 4 5506, 69515, 62174, 75133, 10716, 04192 #### [facility] [address] [place] [address], [facility] SINGLE ANTIGEN CLASS 1on METHOD Class I Single Antigen Normal The [facility] Comment on above: Order Comment: Some [...] to frequency. Performed By: #### 4 5506, 96309, 85620, 83723, 40888, 50838 #### [facility] [address] [place] [address], [facility] SINGLE ANTIGEN CLASS 2on COMMENTS Normal [facility] Comment on above: Order Comment: Some [...] Antigen Microbeads Performed By: #### 4 5506, 95157, 78906, 17186, 96927, 45808 #### [facility] [address] [place] [address], [facility] Result Comment: No C lass I donor specific antibody identified Class I Antigen Microbeads METHOD Class II Single Antigen Normal [facility] Comment on above: Order Comment: Some of [...] to frequency. Performed By: #### 4 5506, 10847, 63338, 75799, 11554, 15379 #### [facility] [address] [place] [address], [facility] SIGNED BY Normal [facility] Comment on above: Order Comment: Some [...] frequency. Result Comment: Jose A Lara, MS,CHT(IRINEO),MT(ASCP) Ems Driver, Transplant Immunology Performed By: #### 4 5506, 85003, 84142, 00469, 72634, 85560 #### [facility] [address] [place] [address], [facility] TACROLIMUSon 02-16-2021 Tacrolimus (Bld) [Mass/Vol] 7.0 ng/mL Normal 5.0-20.0 [facility] Comment on above: Result Comment: The [employer]OP[employer] Tacrolimus assay is a delayed one-step immunoassay for the quantitative determination of tacrolimus in human whole blood using the chemiluminescent microparticle immunoassay (CMIA) technology with flexible assay protocols, referred to as Chemiflex. Performed By: #### 4 5506, 21039, 21204, 71092, 42804, 36604 #### [facility] [address] [place] [address], [facility] TESTOSTERONE, FREE+SHBG+TOTA L ILon 02-16-2021 [place] Normal [facility] Comment on above: Result Comment: Test Performed by [employer] [address] [place] [id number] - Released 02/16/2021 18:49 SEX HORM BIND GLOB 52 nmol/L Normal 11-80 [facility] Testosterone [Mass/Vol] 399 ng/dL Normal 220-1000 [facility] TESTOSTERONE, FREE 60.0 pg/mL Normal 47-244 [facility] Comment on above: Result Comment: The concentration of free testosterone is derived from a mathematical expression based on the constant for the binding of testosterone to albumin and/or sex hormone binding globulin. URIC ACID BLOODon 02-16-2021 Urate [Mass/Vol] 8.0 mg/dL High 4.4-7.6 [facility] Comment on above: Performed By: #### 0 0121, 79009, 31905, 07231, 92291, 26520, 60415, 32139 #### [facility] [address] [place] [address], [facility] VITAMIN D 25-HYDROXYon 02-16 VITAMIN D 25-OH 35.1 ng/mL Normal 30.0-80.0 [facility] Comment on above: Result Comment: >80. 0 Toxicity possible Performed By: #### 4 5506, 93044, 58702, 06691, 14139, 42827 #### [facility] [address] [place] [address], [facility] Vital Signs Date Time Vital Sign Value Performing Clinician Facility 02-16-2024 08:190400 Body height 167.6 cm Jericho Mccarthy MD Work Phone: [facility] 02-16-2024 08:19-0400 Body mass index (BMI) [Ratio] 24.37 kg/m2 Jericho Mccarthy MD Work Phone: [facility] 02-16-2024 08:19-0400 Body temperature 97.5 [degF] Jericho Mccarhty MD Work Phone: [facility] 02-16-2024 08:19-0400 Body weight 68.49 kg Jericho Mccarthy MD Work Phone: [facility] 02-16-2024 08:19-0400 Diastolic blood pressure 60 mm[Hg] Jericho Mccarthy MD Work Phone: [facility] 02-16-2024 08:19-0400 Heart rate 57 /min Jericho Mccarthy MD Work Phone: [facility] 02-16-2024 08:19-0400 Respiratory rate 18 /min Jericho Mccarthy MD Work Phone: [facility] 02-16-2024 08:19-0400 SaO2% (BldA) [Mass fraction] 98 % Jericho Mccarthy MD Work Phone: [facility] 02-16-2024 08:19-0400 Systolic blood pressure 120 mm[Hg] Jericho Mccarthy MD Work Phone: [facility] 03-05-2022 09:30-0400 Diastolic blood pressure 74 mm[Hg] MD Jericho Mccarthy Work Phone: [facility] 03-05-2022 09:30-0400 Heart rate 58 /min MD Jericho Mccarthy Work Phone: [facility] 03-05-2022 09:30-0400 Respiratory rate 18 /min MD Jericho Mccarhty Work Phone: [facility] 03-05-2022 09:30-0400 SaO2% (BldA) [Mass fraction] 99 % MD Jericho Mccarthy Work Phone: [facility] 03-05-2022 09:30-0400 Systolic blood pressure 133 mm[Hg] MD Jericho Mccarthy Work Phone: [facility] 03-05-2022 07:01-0400 Body height 167.64 cm MD Jericho Mccarthy Work Phone: [facility] 03-05-2022 07:01-0400 Body temperature 97.9 [degF] MD Jericho Mccarthy Work Phone: [facility] 03-05-2022 07:01-0400 Body weight 74.84 kg MD Jericho Mccarthy Work Phone: [facility] 01-21-2022 10:30-0400 Body height 167.64 cm Tj Wells Other [facility] Other 01-21-2022 10:30-0400 Body mass index (BMI) [Ratio] 26.47 kg/m2 Tj Wells Other [facility] Other 01-21-2022 10:30-0400 Body weight 74.39 kg Tj Wells Other [facility] Other 01-21-2022 10:30-0400 Diastolic blood pressure 71 mm[Hg] Tj Wells Other [facility] Other 01-21-2022 10:30-0400 Systolic blood pressure 148 mm[Hg] Tj Wells Other [facility] Other Encounters Encounter Date Encounter Type Care Provider Facility Start: 04-16-2024 End: 04-16-2024 Clinisync Result Encounter Generic External Data Provider [facility] Unsolicited Start: 04-16-2024 End: 04-16-2024 Clinisync Result Encounter Generic External Data Provider [facility] External [facility] Unsolicited Start: 03-11-2024 End: 03-11-2024 Cl[facility] Result Encounter Generic External Data Provider [facility] External [facility] Unsolicited Start: 03-11-2024 End: 03-11-2024 [facility] Result Encounter Generic External Data Provider [facility] External [facility] Unsolicited Start: 02-16-2024 End: 02-16-2024 Bamboo flowscristobal Mccarthy MD Work Phone: [facility] [...] Available Start: 02-11-2024 End: 02-11-2024 ambulatory SANTANA [facility] Start: 02-06-2024 End: 02-06-2024 Clinisync Result Encounter Generic External Data Provider [facility] External [facility] Unsolicited Start: 02-06-2024 End: 02-06-2024 Clinisync Result Encounter Generic External Data Provider [facility] Unsolicited Start: 02-02-2024 End: 02-02-2024 Bamboo flowsheet Rajesh Gaines MD Work Phone: [facility] Start: 02-02-2024 End: 02-02-2024 Aminah Gaines MD Work Phone: [facility] Start: 02-02-2024 End: 02-02-2024 Office outpatient visit 15 minutes Rajesh Gaines MD Work Phone: [facility] Comment on above: Sebaceous hyperplasi a of face (Primary Dx); History of basal cell carcinoma; Lentigines Start: 02-02-2024 End: 02-02-2024 ambulatory RAJESH GAINES Not Available Start: 01-09-2024 End: 01-09-2024 Clinisync Result Encounter Generic External Data Provider [facility] External [facility] Unsolicited Start: 01-09-2024 End: 01-09-2024 Clinisync Result Encounter Generic External Data Provider [facility] Unsolicited Start: 10-31-2023 End: 10-31-2023 ambulatory SANTANA LANDIN [facility] Start: 08-25-2023 End: 08-25-2023 ambulatory JERICHO MCCARTHY Not Available Start: 07-09-2023 End: 07-09-2023 ambulatory PRICE MENDEZ [facility] Start: 05-22-2023 End: 05-22-2023 ambulatory JERICHO MCCARTHY Not Available Start: 10-03-2022 End: 10-04-[address] DOCTOR MCCABE Facility:[facility] Start: 08-30-2022 End: 08-31-[address] ALVAREZ MISImani Facility:[facility] Start: 08-01-2022 End: 08-02-[address] ALVAREZ MISC Facility:[facility] Start: 07-04-2022 End: 07-05-[address] DOCTOR MCCABE Facility:[facility] Start: 05-23-2022 End: 05-24-[address] ALVAREZ MISC Facility:[facility] Start: 04-30-2022 End: 05-01-[address] ALVAREZ MISImani Facility:[facility] Start: 04-03-2022 End: 04-04-[address] ALVAREZ MISC Facility:[facility] Start: 03-08-2022 End: 03-09-[address] NAGA BOSCH Facility:[facility] Start: 03-05-2022 End: 03-05-2022 ambulatory Tj Wells Facility:[facility] Start: 03-05-2022 End: 03-05-2022 Admission to same day surgery center MD Jericho Mccarthy Work Phone: [facility] Start: 03-05-2022 End: 03-05-2022 ambulatory MD Jericho Mccarthy Work Phone: [facility] Work Phone: Start: 03-01-2022 End: 03-01-2022 ambulatory Tj Wells Facility:[facility] Start: 03-01-2022 End: 03-01-2022 ambulatory MD Jericho Mccarthy Work Phone: [facility] Work Phone: Start: 03-01-2022 End: 03-01-2022 Patient encounter procedure MD Jericho Mccarthy Work Phone: [id number] Start: 02-01-2022 End: 02-02-[address] DOCTOR MCCABE Facility:[facility] Start: 01-21-2022 End: 01-21-2022 ambulatory Tj Wells Other [employer] Other Start: 01-21-2022 Office outpatient ne w 45 minutes Tj Wells [facility] Gastroenterology Start: 01-04-2022 End: 01-05-[address] NAGA BOSCH Facility:[facility] Start: 11-30-2021 End: 12-01-[address] DOCTOR MCCABE Facility:[facility] Start: 11-14-2021 End: 11-14-[address] JERICHO MCCARTHY Facility:[facility] Procedures Date Procedure Procedure Detail Performing Clinician Start: 04-16-2024 ALL CBC WITH AUTO DIFF Generic External Data Provider Start: 03-11-2024 ALL CBC WITH AUTO DIFF Generic External Data Provider Start: 02-06-2024 ALL CBC WITH AUTO DIFF Generic External Data Provider Start: 01-09-2024 ALL CBC WITH AUTO DIFF Generic External Data Provider Start: 04-16-2023 End: 08-25-2023 History of renal transplant Kidney replaced by transplant Generic Provider Start: 03-05-2022 End: 03-05-2022 Colonoscopy MD Jericho Mccarthy Work Phone: Start: 10-31-2021 History of renal transplant History of renal transplant Generic Provider Start: 01-07-2019 Echocardiography Start: 11-19-2018 Echocardiography Start: 02-27-2018 Colonoscopy Jericho Mccarthy MD Work Phone: SARS Antigen (LFIA) MD Jericho Mccarthy Work Phone: Plan of Treatment Date Care Activity Detail Author Start: 03-05-2032 Screening for malign ant neoplasm of colon [facility] Start: 07-08-2027 Screening for malign ant neoplasm of colon [facility] Start: 11-25-2025 Glaucoma screening Diabetes: R etinopathy Screening [facility] Start: 08-10-2025 Urine screening for protein Diabetes: Urine Protein Screening [facility] Comment on above: Postponed from 07/09 (Other Medical Reasons) Postponed from 12/15 (Other Medical Reasons) Start: 02-03-2025 End: 02-03-2025 Patient encounter procedure 02/03/2025 9:00 AM EDT Office Visit [facility] [address] [place] [id number] Rajesh Gaines MD [address] [place] [address] [facility] Start: 08-05-2024 Hemoglobin A1c measurement Diabetes: Hemoglobin A1C [facility] Start: 03-11-2024 End: 03-11-2024 Patient encounter procedure 03/11/2024 9:15 AM EDT Office Visit [facility] [address] [place] [id number] Jericho Mccarthy MD [address] [place] [address] [facility] Start: 02-16-2024 End: 02-16-2024 Patient encounter procedure [facility] Comment on above: Arrived Start: 02-02-2024 End: 02-02-2024 Patient encounter procedure [facility] Comment on above: Arrived Start: 01-11-2024 Influenza vaccination Influenza Vacc ine (#1) [facility] Start: 10-07-2023 Hemoglobin A1c measurement Diabetes: Hemoglobin A1C [facility] Start: 03-05-2022 [facility] Start: 01-31-2017 Pneumococcal Vaccine : 65+ Years (2 of 2 - PCV) Pneumococcal Vaccine: 65+ Years (2 of 2 - PCV) [facility] Start: 1950 Medicare Annual Wellness (AWV) Medicare Annual Wellness (AWV) [facility] Start: 1950 Screening for malign ant neoplasm of colon [facility] Patient Education [facility] Work Phone: Immunizations Immunization Date Immunization Notes Care Provider German cili 02-18-2023 Influenza, High-dose Seasonal, Quadrivalent, Preservative Free Generic Provider [facility] 02-18-2023 influenza virus vaccine, unspecified formulation Generic Provider [facility] 04-30-2021 COVID-19 mRNA Bivale nt Booster (Book'n'Bloom) MD Jericho Mccarthy Work Phone: [facility] 04-30-2021 Influenza, Seasonal, Quadrivalent, Adjuvanted Generic Provider [facility] 08-01-2020 COVID-19 mRNA, Comirnaty (Book'n'Bloom) MD Jericho Mccarthy Work Phone: [facility] 07-12-2020 COVID-19 mRNA, Comirnaty (Book'n'Bloom) MD Jericho Mccarthy Work Phone: [facility] 02-09-2019 influenza, injectabl e, quadrivalent, contains preservative Generic Provider [facility] 02-13-2017 influenza, seasonal, injectable Tj Wells Other [facility] Other 02-09-2017 influenza virus vaccine, unspecified formulation Generic Provider [facility] 06-27-2016 influenza, seasonal, injectable Tj Wells Other [facility] Other 02-01-2016 pneumococcal polysaccharide vaccine, 23 valent Tj Wells Other [employer] Other Payers Date Payer Category Payer Private Health Insurance [id number] 2022 Private Health Insurance [id number] 2022 Unknown [employer] [employer] [place] [id number] 2022-Present [id number] [place] [address] [id number] 2022 Self-pay [id number] 2022 Unknown [id number] 2009 Medicare [id number] 1959 Medicare [id number] 1959 Private Health Insurance [id number] [id number] 1951 Unknown [id number] 2.16.840.1.498396.3.579.2 .593 1951 Unknown [id number] 2.16.840.1.732766.3.579.2 .593 1951 Unknown [id number] 2.16.840.1.931674.3.579.2 .593 1951 Unknown [id number] 2.16.840.1.483427.3.579.2 .593 1951 Unknown [id number] 2.16.840.1.603191.3.579.2 .593 1951 Unknown [id number] 2.16.840.1.235086.3.579.2 .593 1951 Unknown [id number] 2.16.840.1.922616.3.579.2 .593 1951 Unknown [id number] 2.16.840.1.266020.3.579.2 .593 1951 Unknown [id number] 2.16.840.1.581714.3.579.2 .593 1951 Unknown [id number] 2.16.840.1.651607.3.579.2 .593 1951 Unknown [id number] 2.16.840.1.157045.3.579.2 .593 1951 Unknown [id number] 2.16.840.1.002275.3.579.2 .593 1951 Unknown [id number] 2.16.840.1.238584.3.579.2 .1259 1951 Unknown [id number] 2.16.840.1.861477.3.579.2 .1259 1951 Unknown [id number] 2.16.840.1.536368.3.579.2 .1259 1951 Unknown [id number] 2.16.840.1.184211.3.579.2 .1259 Unknown [id number] 2.16.840.1.123665.3.579.2 .531 Unknown [id number] 2.16.840.1.986974.3.579.2 .531 Social History Date Type Detail Facility Unknown if ever smoked [employer] Other Start: 08-25-2023 End: 02-02-2024 Sex Assigned At [facility] Other Start: 11-11-2019 End: 04-15-2023 Tobacco smoking status UTIS Ex-smoker (finding) [facility] Start: 1950 Sex Assigned At Male F [facility] Start: 05-12-1980 End: 05-12-1992 History of tobacco use Current smoker [facility] Start: 05-12-1980 End: 05-12-1992 History of tobacco use Cigarette Smoker [facility] Start: 04-15-2023 Tobacco use and exposure Smokeless tobacco non-user [facility] Start: 08-25-2023 End: 02-02-2024 History of Social function [facility] Start: 1950 Sex assigned at Not [...] rx was discontinued in Jan by Santana. [facility] 02-16-2024 History of Present illness Narrative Associated Problem(s): Peripheral vascular disease (CMS/HCC) Follow with specialists. Associated Problem(s): Type 2 diabetes mellitus with hyperglycemia, with long-term current use of insulin (CMS/HCC) BS controlled and at times low. A1C 5.6 and decrease basaglar to 15 units daily. Stick to ADA diet and limit carbs. Associated Problem(s): Essential hypertension, benign (CMS/HCC) BP controlled and monitor PRN. Images from the original note were not included. Subjective Patient ID: Roger Kerr is a 73 y.o. male who presents [...] 100 UNIT/ML pen documented in this encounter [facility] 02-11-2024 Note Transplant Clinic Patient : Roger Kerr; 73 y.o. Reason for Visit: History of renal transplant. SUBJECTIVE: History Of Present Illness: Patient is a 73-year-old male with a history of end-stage renal disease status post donor renal transplant on 02/26/2020. 02/11/2024 Patient returns regarding post transplant evaluation and immunosuppression regimen management. Denies fever or chills Review of Systems Negative other than pertinent positives as outlined in the above HPI Chart Reviewed Historical: >>>>>>>>>>>>>>>>>>>>>>>>>>>>>>>>> >>>>>>>>>>>>>>> 10/31/2023 Patient returns regarding posttransplant evaluation and [...] mg (4 tabs x 180mg), PO, BID 07/09/23 I saw him in the clinic [...] DM next week. Instructed patient to consider Casting Operator Helper locally to him: quan del castillo. Pt [...] DM. Return in 12 weeks with labs. <<<<<<<<<<<<<<<<<<<<<<<<<<<<<<<<< <<<<<<<<<<<<<<< OBJECTIVE: Visit Vitals BP 167/79 (BP Location: Right arm, Patient Position: Sitting, BP Cuff Size: Small adult) Pulse 54 Resp 18 Ht 1.676 m (5' 6 ) Wt 66.7 kg (147 lb) BMI 23.73 kg/m??? Smoking Status Former BSA 1.76 m??? Wt Readings from Last 3 Encounters: 02/11/24 66.7 kg (147 lb) 10/31/23 65.3 kg (144 lb) 07/09/23 70.6 kg (155 lb 9.6 oz) Physical Exam Physical Exam: Constitutional: Roger Kerr in NO acute distress Psychiatric: Normal affect, alert and oriented HEENT: No scleral icterus Pulmonary: LCTA bilat. Is not laboring to breathe Cardiovascular: Audible S1, S2. RRR. No obvious cyanosis of the extremities Abdomen: Soft, nontender. graft scar is well healed. Extremities: No lower extremity edema Neurologic: Grossly nonfocal Skin: No jaundice Recent Labs I have reviewed the patient's most recent labs as listed below: Chemistry: Lab Results Component Value Date/Time NA 125 (L) 07/09/2023 0913 K 5.2 (H) 07/09/2023 0913 CL 93 (L) 07/09/2023 0913 CO2 22 07/09/2023 0913 CO2 26 10/31/2021 0837 BUN 17 07/09/2023 0913 CREATININE 1.01 07/09/2023 0913 EGFR 79.5 07/09/2023 0913 GLU 158 (H) 10/31/2021 0837 CALCIUM 9.1 07/09/2023 0913 MG 1.5 (L) 07/09/2023 0913 PHOS 4.6 07/09/2023 0913 PTH 48 04/28/2023 1105 URICAC 7.8 (H) 10/31/2021 0837 AL (more content not included)... [facility] 02-02-2024 History of Present illness Narrative Skin Check Location: Patient requests a skin examination of the face and arms, A full body skin exam was offered, patient declined Dermatologic history: history of Actinic Keratosis, history of Basal Cell Carcinoma Last visit: 1 year ago Established patient All pertinent medical history, medications, and allergies were reviewed. General Exam: alert , oriented to person, place, and time , normal affect, well appearing Unaccompanied A complete skin exam was offered, pt declined. Areas not examined despite medical recommendation: From the waist down and Under shirt Scalp, Examined , exam limited by hair Head, Face Examined Neck Not examined Chest Not examined Back Not examined Abdomen Not examined Right arm Examined Left arm Examined Hands Examined Digits,nails: Examined Lymphatics: 1. Sebaceous hyperplasia of face Head - Anterior (Face) Small yellow papules with a central dell. Reassure, benign. Discussed these can be removed for a cosmetic fee with the hyfrecator if desired. 2. History of basal cell carcinoma Left Tip of Nose No evidence of recurrence at BCC scar. The patient was counseled that scars from excisional sites of nonmelanoma skin cancers should be monitored closely for recurrence. The patient was instructed to contact the office for any new, changing, or symptomatic moles. The patient was also instructed to contact the office for any new lesions that develop within or around the previous surgery scar. 3. Lentigines Head - Anterior (Face) Scattered wheeler macules in sun-exposed areas. The patient was informed that lentigines are benign pigmented lesions that occur on sun-exposed and sun-damaged skin. No treatment is necessary. Recommended regular use of broad spectrum sunscreen SPF 30 or higher Next Visit: 1 year documented in this encounter [facility] 01-19-2024 Note Mg 1.2 reviewed with PRUDENCIO Chou. Patient was previously refusing infusion for Magnesium and note from visit 10/30 was not complete. Per PRUDENCIO Chou on Gem secure chat patient is to be on Amiliride 5mg daily, take Maalox and Mylanta with Mg. Phone call to patient who had stopped Amiliride in error and has been continuing to take Amlodipine which was discontinued. Patient requested script for Amiliride to be sent to [facility] in [place]. Reviewed magnesium rich foods with patient. Patient also states he is taking 2400 mg of magnesium daily. Instructed patient to get repeat labs this month. Patient verbalizes understanding. Also mailed standing lab order for monthly BK to patient to have added to standing labs. [facility] 10-31-2023 Note Patient notified abo ut mag level of 1.3, he stated he saw the ASSOCIATE RELATIONS SPECIALIST here today and came up with a plan because he does not want an infusion. [facility] 10-31-2023 Note Transplant Clinic Patient : Roger Kerr; 72 y.o. Reason for Visit: History of [...] in the above HPI Chart Reviewed Historical: >>>>>>>>>>>>>>>>>>>>>>>>>>>>>>>>> >>>>>>>>>>>>>>> 07/09/23 I saw him in the clinic [...] DM next week. Instructed patient to consider Casting Operator Helper locally to him: quan del castillo. Pt [...] DM. Return in 12 weeks with labs. <<<<<<<<<<<<<<<<<<<<<<<<<<<<<<<<< <<<<<<<<<<<<<<< OBJECTIVE: Visit Vitals BP 115/58 (BP Location: [...] (158 lb) Physical Exam Physical Exam: Constitutional: Rogerchris Kerr in NO acute distress Psychiatric: Normal affect, [...] 0837 CALCIUM 9.1 (more content not included)... [facility] 07-09-2023 Note 07/10/23 Chief Complaint Patient presents with Kidney Follow-up Patient has no major concerns today PCP: Jericho Mccarthy MD Txp Referring: Preferred Pharmacy: [id number] [place], [place] - [address] [facility] [address] [facility] [address] [facility] - [address] [address] [facility] [address] [place] [address] [address] [address] Subjective Visit Vitals BP 124/56 (BP Location: [...] Dose Status aMILoride (Midamor) 5 mg tablet [id number] No Take 5 mg by mouth in the morning. Historical Provider, Not Taking Flag for Review aMILoride (Midamor) 5 mg tablet [id number] Yes Take 1 tablet (5 mg) by mouth in the morning. Jericho Abad NP Taking Active amLODIPine (Norvasc) 10 mg tablet [id number] Yes Take 1 tablet (10 mg) by mouth in the morning. Sahil Mcghee MD Taking Active atorvastatin (Lipitor) 10 mg tablet [id number] Yes Take 1 tablet (10 mg) by mouth every other day. Gita Egan NP Taking Active blood-glucose meter [facility] [id number] Yes Test daily before all meals/snacks and once before bedtime. With 100 lancets and strips George Garduno MD Taking Active carvedilol (Coreg) 12.5 mg tablet [id number] Yes Take 1 tablet (12.5 mg) by mouth with breakfast and with evening meal. Gita Egan NP Taking Active cinacalcet (Sensipar) 30 mg tablet [id number] Yes Take 1 tablet every day by oral route. Praveena Cohen MD Taking Active furosemide (Lasix) 20 mg tablet [id number] Yes take 1 tablet by mouth once daily Naga Bosch MD Taking Active insulin glargine (Lantus Solostar U-100 Insulin) 100 unit/mL (3 mL) injection pen [id number] Yes Inject 20 Units under the skin at bedtime. George Garduno MD Taking Active isopropyl alcohoL 70 % towelette [id number] Yes Test daily before all meals/snacks and once before bedtime. George Garduno MD Taking Active lisinopril 20 mg tablet [id number] Yes Take 1 tablet (20 mg) by mouth in the morning. Sahil Mcghee MD Taking Active magnesium oxide (Mag-Ox) 400 mg (241.3 mg magnesium) tablet [id number] Yes Take 2 tablets (800 mg) by mouth in the morning, at noon, and at bedtime. take 2 tablets by mouth three times a day with meals Jericho Abad NP Taking Active metFORMIN (Glucophage) 500 mg tablet [id number] Yes Take 1 tablet (500 mg) by mouth with breakfast and with evening meal. George Garduno MD Taking Active mycophenolate (Myfortic) 180 mg EC tablet [id number] Yes Take 4 tablets (720 mg) by mouth in the morning and at bedtime. Jericho Abad NP Taking Active omeprazole OTC (PriLOSEC OTC) 20 mg EC tablet [id number] Yes Take 1 tablet (20 mg) by mouth before breakfast. Do not crush, chew, or split. George Garduno MD Taking Active pen needle, diabetic 31 gauge x 5/16 needle [id number] Yes Use to inject 1-4 times daily as directed. George Garduno MD Taking Active sildenafil (Revatio) 20 mg tablet [id number] Yes Take 1 tablet 3 times a day by oral route for 90 days. Sahil Mcghee MD Taking Active sulfaSALAzine (Azulfidine) 500 mg EC tablet [id number] Yes Take 500 mg by mouth in the morning and at bedtime. Dane Kerr MD Taking Active tacrolimus (Prograf) 0.5 mg capsule [id number] Yes Take 1 capsule (0.5 mg) by [...] effusion Polycystic kidney DAVID (acute kidney injury) ([facility]) Hypomagnesemia Family History Problem Relation Name Age of Onset Diabetes Mother Hyperten (more content not included)... [facility] 07-08-2023 Note Left message for pat ient to take one extra lasix 20 mg today and we will retest tomorrow. Per Dr Bobbi dhaliwal. [facility] 07-08-[address] sandip dhaliwal, patient added to Dr Moya schedule tomorrow am due to critical low sodium level of 124. Patient notified and will arrive between 8:30 am and 9 am for labs. [facility] 03-05-2022 Procedure note [facility] 01-21-2022 Evaluation note Encounter Date Diagnosis Assessment Notes Jan, Diarrhea (ICD-10 - R19.7) Colonoscopy Okay to take Imodium - 1 tablet every morning Jan, Fecal urgency (ICD-10 - R15.2) [employer] Other 05-01-2010 History general Narrative - Reported* [...] Hospitalization History Kidney Issue; on transplant list ([facility]) 02/2018 Hospitalization History pulmonary embolism 0 [employer] Other Evaluation noteNo assessment information available [facility] Work Phone: Evaluation note* Diagnosis Onset Date Resolution Status Diarrhea acute [facility] Work Phone: Evaluation note* Diagnosis [...] without gangrene (CMS/HCC) [facility]* Diagnosis Sebaceous hyperplasia of face- Primary History of basal cell carcinoma Personal history of other malignant neoplasm of skin [facility]ines [facility] Additional Instructions DISCHARGE INSTRUCTIONS FOR ENDOSCOPY FOR COLONOSCOPY: -Expect a gassy or full feeling after a colonoscopy. Report any NEW abdominal pain or vomiting. FOR SEDATION FOR 24 HOURS: -NO driving -Do NOT operate machinery such as power tools, lawn mowers, [employer] blowers, sewing machines, etc. -Avoid alcoholic beverages [...] if you have any problems. -Office number [phone] [facility] Work Phone: Reason for visit NarrativePATIENT REFERRED BY DR. MCCARTHY FOR EVALUATION AND TREATMENT OF DIARRHEAAddis [employer] Other Summary Purpose Family History No Family [...] section and content) DATE CREATED AUTHOR 07/13/2019 [facility] DATE CREATED AUTHOR AUTHOR'S ORGANIZ ATION 11/02/2021 [facility] DATE CREATED AUTHOR AUTHOR'S ORGANIZ ATION 03/12/2022 [facility] DATE CREATED AUTHOR AUTHOR'S ORGANIZ ATION 10/18/2022 [facility] DATE CREATED AUTHOR AUTHOR'S ORGANIZ ATION 02/16/2024 [facility] EPIC DATE CREATED AUTHOR AUTHOR'S ORGANIZ ATION 05/26/2024 [facility] Care Teams (unrecognized sec tion and content) Team Status: Inactive Member Role Status Dates Jericho Mccarthy MD Primary Care Provider Active Tj Wells MD Attending Provider Active Team Status: Active Member Role Status Dates Jericho Mccarthy MD Primary Care Provider Active Telephone Triage Nurse Relationship Specialty Start Date End Date Jericho Mccarthy MD [address] [place] [phone] PCP - General Family Medicine 08/25/23 Telephone Triage Nurse Relationship Specialty Start Date End Date Jericho Mccarthy MD [address] [place] [phone] PCP - General Family Medicine 08/25/23 Telephone Triage Nurse Relationship Specialty Start Date End Date Jericho Mccarthy MD [address] [place] [phone] PCP - General Family Medicine 08/25/23 Telephone Triage Nurse Relationship Specialty Start Date End Date Naderer, Jericho, MD [address] [place] [phone] PCP - General Family Medicine 08/25/23 Telephone Triage Nurse Relationship Specialty Start Date End Date Jericho Mccarthy MD [address] [place] [phone] PCP - General Family Medicine 08/25/23 Goals (unrecognized section and content) Goals may be documented in a n alternate section Reason for Visit (unrecogniz ed section and content) Reason Comments Follow-up 6 M Reason Comments Skin Check FOR RECORDS PERTAINING TO PATIENTS WHO ARE [...] BE BASED ON THE PRIMARY CLINICAL RECORDS. [employer] provides no warranty or guarantee of the accuracy or completeness of information in this document.
[2024-06-04 08:10] LABS: Basophils Percent Auto 0.9 % (0.2-2.0); Eosinophils Absolute Auto 0.2 10^3/uL (0.0-0.7); Eosinophils Percent Auto 5.4 % (0.9-7.0); Hemoglobin 11.2 g/dL (14.0-18.0); Immature Granulocytes Abs Auto 0.05 10^3/uL (0.00-0.03); Immature Granulocytes Pct Auto 1.5 % (0.0-0.5); Lymphocytes Absolute Auto 0.7 10^3/uL (1.2-3.8); Mean Corpuscular Hemoglobin 29.5 pg (25.9-34.0); Mean Corpuscular Volume 92.1 fL (80.0-94.0); Mean Platelet Volume 9.5 fL (9.5-13.5); Monocytes Absolute Auto 0.5 10^3/uL (0.3-0.8); Monocytes Percent Auto 15.2 % (1.7-12.0); Neutrophils Absolute Auto 1.9 10^3/uL (1.4-6.5); Platelet Count 252 10^3/uL (150-450); Red Cell Distribution Width 13.9 % (11.0-15.0); White Blood Count 3.4 10^3/uL (4.0-11.0)
[2024-06-04 08:18] LABS: Estimated Average Glucose 114 mg/dL; Glycohemoglobin A1C 5.6 % (4.5-6.2)
[2024-06-04 08:25] LABS: Alanine Aminotransferase 20 U/L (16-63); Albumin Globulin Ratio 1.1; Albumin Level 3.7 g/dL (3.4-5.0); Alkaline Phosphatase 125 U/L (46-116); Anion Gap 9.8; Aspartate Amino Transferase 16 U/L (15-37); BUN Creatinine Ratio 14.1; Bilirubin Direct 0.1 mg/dL (0.0-0.2); Bilirubin Total 0.4 mg/dL (0.2-1.0); Calcium 8.4 mg/dL (8.5-10.1); Carbon Dioxide 29.8 mmol/L (21.0-32.0); Chloride 106 mmol/L (98-107); Estimated GFR (African America >60 (>=60 mL/min/1.73m^2); Estimated GFR (Non-African Ame >60 (>=60 mL/min/1.73m^2); Globulin 3.3 g/dL; Glucose 80 mg/dL (74-106); Magnesium 1.4 mg/dL (1.8-2.4); Phosphorus 4.1 mg/dL (2.6-4.7); Potassium 4.6 mmol/L (3.5-5.1); Sodium 141 mmol/L (136-145); Uric Acid 6.3 mg/dL (3.5-7.2)
[2024-06-04 09:28] LABS: Chol HDL Ratio 1.8; Cholesterol 109 mg/dL (<=200); HDL Cholesterol 62 mg/dL (40-60); Triglycerides 31 mg/dL (<=150); VLDL CHOLESTEROL 6.2 mg/dL
[2024-06-05 06:09] LABS: Sex Horm Binding Glob, Serum 64.2 nmol/L (19.3-76.4)
[2024-06-08 04:07] LABS: Tacrolimus (FK506), Blood 4.3 ng/mL (2.0-20.0)
[2024-06-09 14:10] LABS: Free Testosterone(Direct) 9.3 pg/mL (6.6-18.1); Testosterone 547 ng/dL (264-916)
== END 2024-06-04 06:58 | disposition home or self-care (01) ==
LOC: LAB 06:59
PROVIDERS: PCP Family Medicine
DX: E13.9 Other specified diabetes mellitus without complications (principal); Z94.0 Kidney transplant status
CPT/HCPCS: 36415; 80053; 80061; 80197; 82248; 83036; 83735; 84100; 84270; 84402; 84403; 84550; 85025

== ENCOUNTER 2024-07-23 07:03 | Outpatient (OUT) | payer MEDICARE, OTHER, SELFPAY ==
--- OUTSIDE RECORDS SUMMARY | 2024-07-23 07:07 | XMS_ITS | CCD ---
Author Organization [facility] Care Team Providers Care Fire Protection 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 Name Role Phone Tj Wells Unavailable [phone] MD Jericho Mccarthy Primary Care Provider MD Tj Wells Attending Provider Tj Wells Attending Unavailabl e NadJericho lofton Primary Care Unavailable jT Wells Admitting Unavailabl e Maira, Tj Sullivan Admitting Unavailabl e Tj Wells Attending Unavailabl e Jericho Mccarthy Primary Care Unavailable MISC, DR ALVAREZ Attending Unavailable MISC, DR ALVAREZ Admitting Unavailable MISC, DR ALVAREZ Consulting Unavailable NADERER, DR JERICHO Floyd Primary Care Unavailable DOUGLAS, DR MERRITT Consulting Unavailable DOUGLAS, DR MERRITT Attending Unavailable DOUGLAS, DR MERRITT Admitting Unavailable NADERER, DR FERGUSON A Primary Care Unavailable MISC, DR ALVAREZ Attending Unavailable MISC, DR ALVAREZ Admitting Unavailable NADERER, DR FERGUSON A Primary Care Unavailable MISC, DR ALVAREZ Consulting Unavailable DOUGLAS, DR MERRITT Consulting Unavailable DOUGLAS, DR MERRITT Attending Unavailable NADERER, DR FERGUSON A Primary Care Unavailable DOUGLAS, DR MERRITT Admitting Unavailable MISC, DR ALVAREZ [...] DR ALVAREZ Attending Unavailable FABIO, DR JERICHO Flyod Primary Care Unavailable IAN ., DR WINTERS Consulting Unavailable HAY ., DR WINTERS Attending Unavailable IAN ., DR WINTERS Admitting Unavailable MIS, DR ALVAREZ Admitting Unavailable MIS, DR ALVAREZ Consulting Unavailable FABIO, DR JERICHO Floyd Primary Care Unavailable MISC, DR ALVAREZ Attending Unavailable MISC, DR ALVAREZ Attending Unavailable MISC, DR ALVAREZ Admitting Unavailable MISC, DR ALVAREZ Consulting Unavailable FABIO, DR JERICHO Floyd Primary Care Unavailable JERICHO MCCARTHY Attending Unavailable FABIO, JERICHO Attending Unavailable RAJESH GAINES Attending Unavailable FABIO, JERICHO Attending Unavailable Jericho Mccarthy MD Primary Care Provider [phone] AZEB LEE Attending Unavailable URVASHI, SANTANA Attending Unavailable URVASHI, SANTANA Attending Unavailable Allergies Allergy Classification Reported Allergen(s) Allergy Type Date of Onset Reaction(s) Facility (11 sources) Non-steroidal anti-inflammator y agent Drug Intolerance 2 [facility] Healthcare (1 source) NSAIDs; Translations: [NSAIDS (NON-STEROIDAL ANTI-INFLAMMATOR Y DRUG)] Propensity to adverse reactions to drug (disorder) 2 [facility] Repository Medications Current Medications Medication Drug Class(es) Dates Sig (Normalized) Sig (Original) aMILoride hydrochloride 5 mg oral tablet (5 sources) Potassium-sparing Diuretic Start: 01-19-2024 End: 01-18-2025 take 1 tablet by mouth in the morning aMILoride (Midamor) 5 MG tablet Take 5 mg by mouth in the morning. 01/19/2024 01/18/2025 Active amLODIPine 10 mg oral tablet (14 sources) Dihydropyridine Calcium Channel Swetha Start: 07-08-2017 take 10 mg by mouth once daily Amlodipine Active 10 MG PO Daily July 08, 2017 1:00am atorvastatin 10 mg oral tablet (13 sources) HMG-CoA Reductase Inhibitor Start: 10-04-2022 take 1 tablet by mouth every other day atorvastatin (Lipitor) 10 MG tablet Take 1 tablet every other day by oral route. 10/04/2022 Active Start: 03-05-2022 take 10 mg by mouth once daily Atorvastatin Active 10 MG PO Daily March 05, 2022 12:00am take 1 tablet by pastora once daily Atorvastatin Calcium 10 MG take 1 tablet by mouth once daily Oral for 90 Active carvedilol 3.125 mg oral tablet (19 sources) alpha-Adrenergic Swetha, beta-Adrenergic Swetha Start: 03-05-2022 [...] meals. Active cinacalcet 30 mg oral tablet (13 sources) Calcium-sensing Receptor Agonist Start: 03-05-2022 take 30 mg by mouth once daily Cinacalcet Active 30 MG PO Daily March 05, 2022 12:00am Cinacalcet HCl A ctive dicyclomine hydrochloride 20 mg oral tablet (1 source) Anticholinergic Start: 03-05-2022 take 20 mg by mouth twice daily Dicyclomine Active 20 MG PO Twice daily March 05, 2022 12:00am furosemide 20 mg oral tablet (7 sources) Loop Diuretic Start: 09-16-2023 take 1 [...] ml insulin glargine 100 unt/ml pen injector (13 sources) Insulin Analog Start: 05-21-2024 Basaglar KwikP en 100 UNIT/ML pen Indications: Type 2 diabetes mellitus with hyperglycemia, with long-term current use of insulin ([facility]) INJECT 20 UNITS SUBCUTANEOUSLY (UNDER THE SKIN) AT BEDTIME 15 mL 05/21/2024 Active Start: 03-03-2024 Basaglar KwikP en 100 UNIT/ML [...] 02/16/2024 Discontinued lisinopril 20 mg oral tablet (14 sources) Angiotensin Converting Enzyme Inhibitor Start: 01-07-2017 take 20 mg by mouth once daily Lisinopril Active 20 MG PO Daily January 07, 2017 12:00am Start: 01-07-2017 take 20 mg by mouth twice carmelo y Lisinopril Active 20 MG PO Twice daily January 07, 2017 12:00am Magnesium (1 source) Magnesium Active magnesium oxide 400 mg oral tablet (13 sources) Start: 03-05-2022 take 1200 mg by [...] Active metFORMIN hydrochloride 500 mg oral tablet (11 sources) Biguanide Start: 04-29-2024 take 1 tablet by mouth twice daily at dinner metFORMIN (Glucophage) 500 MG tablet Indications: Type 2 diabetes mellitus with hyperglycemia, without long-term current use of insulin (CMS/HCC) TAKE 1 TABLET BY MOUTH TWICE DAILY WITH BREAKFAST AND WITH DINNER 300 tablet 2 04/29/2024 Active Start: 11-27-2023 take 1 tablet by pastora th twice daily at dinner metFORMIN (Glucophage) 500 MG tablet Indications: Type 2 diabetes mellitus with hyperglycemia, without long-term current use of insulin (CMS/HCC) take 1 tablet by mouth twice a day WITH MORNING AND EVENING MEALS 180 tablet 11 11/27/2023 Active mycophenolic acid 180 mg delayed release oral tablet (12 sources) Antimetabolite Immunosuppressant take 4 tablets by mouth in the morning mycophenolate (Myfortic) 180 MG EC tablet Take 4 tablets by mouth in the morning and 4 tablets before bedtime. Active take [address] [facility] every twelve hours Mycophenolate Sodium 180 MG 2 tablets Or ally Twice a day Active omeprazole 20 mg delayed release oral tablet (11 sources) Proton Pump Inhibitor Start: 04-30-2023 take 1 tablet by mouth before mealtime omeprazole OTC (PriLOSEC OTC) 20 MG EC tablet Take 20 mg by mouth in the morning. Take before meals. 04/30/2023 Active sildenafil 20 mg oral tablet (13 sources) Phosphodiesterase 5 Inhibitor Start: 11-29-2022 take 1 tablet by mouth every eight hours sildenafil (Revatio) 20 MG tablet Take 20 mg by mouth every 8 (eight) hours 11/29/2022 Active Start: 03-05-2022 take 20 mg by mouth three times daily Sildenafil (Pulm.Hypertension) Active 20 MG PO Three times daily March 05, 2022 12:00am take 1 tablet by pastora th three times daily Sildenafil Citrate 20 MG [...] tacrolimus 0.5 mg extended release oral capsule (13 sources) Calcineurin Inhibitor Immunosuppressant Start: 03-05-2022 take [...] aspirin 81 mg delayed release oral tablet (7 sources) Platelet Aggregation Inhibitor, Nonsteroidal Anti-inflammatory Drug [...] 2 MCG IVP MWF DURING DIALYSIS PER [facility] (08/26/18) 5 ml sodium ferric gluconate complex 12.5 mg/ml injection (2 sources) Start: 07-08-2017 End: 03-05-2022 Sodium Ferric Gluconat-Sucrose (Ferrlecit) 62.5 mg/5 mL Solution Discontinued 125 MG IV Q14D July 08, 2017 1:00am March 05, 2022 7:07am RECEIVES FERRLECIT 125MG IVP EVERY OTHER FRIDAY (DOSE DUE 08/26/18 PER [facility]) Problems Active Problems Problem Classification Problem Date Documented Date Episodic/Chronic Cataract (11 sources) Cataract; Translations: [Unspecified cataract] Onset: 07 21-22-2023 Chronic Chronic kidney disease (20 sources) Dependence on renal dialysis; Translations: [Dependence on renal dialysis] Onset: 0 08-26-2018 Chronic Chronic obstructive pulmonary disease and bronchiectasis (11 sources) Chronic obstructive lung disease; Translations: [Chronic obstructive pulmonary disease, unspecified] Onset: 3 05-22-2023 Chronic Congestive heart failure; nonhypertensive (13 sources) Chronic heart failure co-occurrent with normal ejection fraction; Translations: [Chronic diastolic (congestive) heart failure] Onset: 2 05-22-2023 Chronic Coronary atherosclerosis and other heart disease (13 sources) Coronary atherosclerosis; Translations: [Atherosclerotic heart disease of [place] coronary artery without angina pectoris] Onset: 2 05-02-2023 Chronic Diabetes mellitus with complications (17 sources) Hyperglycemia due to type 2 diabetes mellitus; Translations: [Type 2 diabetes mellitus with hyperglycemia] Onset: 4 05-22-2023 Chronic Disorders of lipid metabolism (12 sources) Pure hypercholesterolemia, unspecified; Translations: [Mixed hyperlipidemia] [...] Translations: [Acute pulmonary edema] 08-26-2018 Episodic Other screening for suspected conditions (not [...] disorders] 02-02-2024 Episodic Peripheral and visceral atherosclerosis (13 sources) Peripheral vascular disease; Translations: [Peripheral vascular disease, unspecified] Onset: 8 05-02-2023 Chronic Pulmonary heart disease (2 sources) Primary pulmonary hypertension; Translations: [Primary pulmonary hypertension] Onset: 5 Chronic Respiratory failure; insufficiency; arrest (adult) (2 [...] te Episodic/Chronic Acute and unspecified renal failure (11 sources) Acute renal failure syndrome; Translations: [Acute kidney failure, unspecified] Onset: 3 Resolved: 4 08-25-2023 Episodic Fluid and electrolyte disorders (2 sources) Hypo-osmolality and hyponatremia; Translations: [Hypo-osmolality and hyponatremia] Onset: 4 Episodic Nausea and vomiting (3 sources) Nausea with vomiting, unspecified; Translations: [NAUSEA WITH VOMITING UNSPECIFIED] Onset: 2 Episodic Noninfectious gastroenteritis (1 source) Noninfective gastroenteritis and colitis, unspecified; Translations: [NONINFECTIVE GE AND COLITIS UNS] Onset: 2 Episodic Other aftercare (1 source) Other exterminator (current) drug therapy; Translations: [OTH PRISON CURRENT DRUG THERAPY] Onset: 2 Episodic Other gastrointestinal disorders (3 sources) Diarrhea, unspecified; Translations: [Diarrhea] Onset: 2 Resolved: 2 Episodic Other gastrointestinal disorders (1 source) Fecal urgency Onset: 2 Resolved: 2 Episodic Other non-epithelial cancer of skin (13 sources) Basal cell carcinoma of dorsum of nose; Translations: [Basal cell carcinoma of skin of nose] Onset: 3 05-02-2023 Episodic Pleurisy; pneumothorax; pulmonary collapse (11 sources) Pleurisy with effusion; Translations: [Pleural effusion, not elsewhere classified] Onset: 3 04-16-2023 Episodic Residual codes; unclassified (11 sources) At risk for infection; Translations: [Personal history of immunosupression therapy] Onset: 2 05-02-2023 Episodic Results Test Name Value Interpretation Reference Range Facility Follow-Upon 06-18-2024 Follow-Up [id number] Roger Kerr 1950 M Date Provider Department Center 06/18/2024 [id number] NEPHROLOGI*TXP None Family History Problem Relation Age of Onset Diabetes Mother Hypertension Mother Coronary artery disease Mother Other Mother Cystic kidney disease Mother Hypertension Father Skin cancer Father Cystic kidney disease Father Cystic kidney disease Sister Heart disease Brother ALS Brother Cystic kidney disease Brother Family Status - Relation Status Age at Mother Father Sister Brother Level of Service:89899 MS OFFICE/OUTPATIENT ESTABLISHED MOD MDM 30 MIN (GC) Reason for Visit and Comments: Kidney Follow-up [[id number]] - NO CONCERNS Normal [facility] Office Visiton 06-09-2024 Follow-up visit [id number] Roger Kerr 1950 M Date Provider Department Center 06/09/2024 [id number] LEE [facility] Family History Problem Relation Age of Onset Diabetes Mother Hypertension Mother Coronary artery disease Mother Other Mother Cystic kidney disease Mother Hypertension Father Skin cancer Father Cystic kidney disease Father Cystic kidney disease Sister Heart disease Brother ALS Brother Cystic kidney disease Brother Family Status - Relation Status Age at Mother Father Sister Brother Level of Service:[id number] MS OFFICE/OUTPATIENT ESTABLISHED LOW MDM 20 MIN Normal [facility] ALL CBC WITH AUTO DIFFon BASOPHILS ABSOLUTE AUTO 0 [facility] Basophils/100 WBC (Bld) 0.9 % 0.2 - 2.0 % [facility] Eosinophils/100 WBC (Bld) 5.4 % 0.9 - 7.0 % [facility] Erythrocyte distribution width (RBC) [Ratio] 13.9 % 11.0 - 15.0 % [facility] Hematocrit (Bld) [Volume fraction] 35 % Low 42.0 - 54.0 % [facility] Hemoglobin (Bld) [Mass/Vol] 11.2 g/dL Low 14.0 - 18.0 g/dL [facility] IMMATURE GRANULOCYTES ABS AUTO 0.05 High [facility] Immature granulocytes/100 WBC (Bld) 1.5 % High 0.0 - 0.5 % [facility] and review of laboratory results Abnormal [facility] LYMPHOCYTES ABSOLUTE AUTO 0.7 Low [facility] Lymphocytes/100 WBC (Bld) 22 % 20.5 - 60.0 % [facility] MCH (RBC) [Entitic mass] 29.5 pg 25.9 - 34.0 pg [facility] MCHC (RBC) [Mass/Vol] 32 g/dL 29.9 - 35.2 g/dL [facility] MCV (RBC) [Entitic vol] 92.1 fL 80.0 - 94.0 fL [facility] MONOCYTES ABSOLUTE AUTO 0.5 [facility] Monocytes/100 WBC (Bld) 15.2 % High 1.7 - 12.0 % [facility] NEUTROPHILS ABSOLUTE AUTO 1.9 [facility] Neutrophils/100 WBC (Bld) 55 % 43.0 - 75.0 % [facility] Platelet mean volume (Bld) [Entitic vol] 9.5 fL 9.5 - 13.5 fL [facility] EO # 0.2 [facility] PLT 252 [facility] RBC 3.8 Low [facility] WBC 3.4 Low [facility] ALL CBC WITH AUTO DIFFon BASOPHILS ABSOLUTE AUTO 0.1 [facility] Basophils/100 WBC (Bld) 0.7 % 0.2 - 2.0 % [facility] Eosinophils/100 WBC (Bld) 3.6 % 0.9 - 7.0 % [facility] Erythrocyte distribution width (RBC) [Ratio] 14 % 11.0 - 15.0 % [facility] Hematocrit (Bld) [Volume fraction] 36 % Low 42.0 - 54.0 % [facility] Hemoglobin (Bld) [Mass/Vol] 11.7 g/dL Low 14.0 - 18.0 g/dL [facility] IMMATURE GRANULOCYTES ABS AUTO 0.04 High [facility] Immature granulocytes/100 WBC (Bld) 0.6 % High 0.0 - 0.5 % [facility] Interpretation and review of laboratory results Abnormal [facility] LYMPHOCYTES ABSOLUTE AUTO 0.9 Low [facility] Lymphocytes/100 WBC (Bld) 13.9 % Low 20.5 - 60.0 % [facility] MCH (RBC) [Entitic mass] 29.3 pg 25.9 - 34.0 pg [facility] MCHC (RBC) [Mass/Vol] 32.5 g/dL 29.9 - 35.2 g/dL [facility] MCV (RBC) [Entitic vol] 90.2 fL 80.0 - 94.0 fL [facility] MONOCYTES ABSOLUTE AUTO 0.6 [facility] Monocytes/100 WBC (Bld) 8.2 % 1.7 - 12.0 % [facility] NEUTROPHILS ABSOLUTE AUTO 4.9 [facility] Neutrophils/100 WBC (Bld) 73 % 43.0 - 75.0 % [facility] Platelet mean volume (Bld) [Entitic vol] 8.9 fL Low 9.5 - 13.5 fL [facility] EO # 0.2 [facility] PLT 301 [facility] RBC 3.99 Low [facility] WBC 6.7 [facility] 36on 04-01-2024 36 Regarding echo resul t from 03/23/2024: MD Lurdes Stallings MA His echo overall was okay. He just needs a regular follow-up. Spoke with patient and scheduled him a follow up with Jennifer Egan CNP on 05/13/2024. Normal [facility] ALL CBC WITH AUTO DIFFon BASOPHILS ABSOLUTE AUTO 0 [facility] Basophils/100 WBC (Bld) 0.5 % 0.2 - 2.0 % [facility] Eosinophils/100 WBC (Bld) 2.7 % 0.9 - 7.0 % [facility] Erythrocyte distribution width (RBC) [Ratio] 13.7 % 11.0 - 15.0 % [facility] Hematocrit (Bld) [Volume fraction] 36.6 % Low 42.0 - 54.0 % [facility] Hemoglobin (Bld) [Mass/Vol] 12.1 g/dL Low 14.0 - 18.0 g/dL [facility] IMMATURE GRANULOCYTES ABS AUTO 0.03 [facility] Immature granulocytes/100 WBC (Bld) 0.5 % 0.0 - 0.5 % [facility] Interpretation and review of laboratory results Abnormal [facility] LYMPHOCYTES ABSOLUTE AUTO 0.9 Low [facility] Lymphocytes/100 WBC (Bld) 13.3 % Low 20.5 - 60.0 % [facility] MCH (RBC) [Entitic mass] 29.3 pg 25.9 - 34.0 pg [facility] MCHC (RBC) [Mass/Vol] 33.1 g/dL 29.9 - 35.2 g/dL [facility] MCV (RBC) [Entitic vol] 88.6 fL 80.0 - 94.0 fL [facility] MONOCYTES ABSOLUTE AUTO 0.5 [facility] Monocytes/100 WBC (Bld) 7.7 % 1.7 - 12.0 % [facility] NEUTROPHILS ABSOLUTE AUTO 5 [facility] Neutrophils/100 WBC (Bld) 75.3 % High 43.0 - 75.0 % [facility] Platelet mean volume (Bld) [Entitic vol] 9.1 fL Low 9.5 - 13.5 fL [facility] TBH EO # 0.2 [facility] TB PLT 262 [facility] TB RBC 4.13 Low [facility] TB WBC 6.6 [facility] Documentationon 03-11-2024 Documentation [id number] Roger Kerr 1950 M Date Provider Department Center 03/11/2024 [...] Status Age at Mother Father Sister Brother [facility] 29on 02-11-2024 29 Addended by: SANTANA LANDIN on: 07/11/2024 11:41 PM Modules accepted: Level of Service Normal [facility] Follow-Upon 02-11-2024 Follow-Up [id number] Roger Kerr 1950 M Date Provider Department Center 02/11/2024 [id number] LANDIN TXP None Family History Problem Relation Age of Onset Diabetes Mother Hypertension Mother Coronary artery disease Mother Other Mother Cystic kidney disease Mother Hypertension Father Skin cancer Father Cystic kidney disease Father Cystic kidney disease Sister Heart disease Brother ALS Brother Cystic kidney disease Brother Family Status - Relation Status Age at Mother Father Sister Brother Level of Service:[id number] MS OFFICE/OUTPATIENT ESTABLISHED MOD MDM 30 MIN Reason for Visit and Comments: Kidney Follow-up [[id number]] - Pt has no concerns at this time. Normal [facility] ALL CBC WITH AUTO DIFFon BASOPHILS ABSOLUTE AUTO 0.0 [facility] Basophils/100 WBC (Bld) 0.6 % 0.2 - 2.0 % [facility] Eosinophils/100 WBC (Bld) 3.1 % 0.9 - 7.0 % [facility] Erythrocyte distribution width (RBC) [Ratio] 13.6 % 11.0 - 15.0 % [facility] Hematocrit (Bld) [Volume fraction] 36.0 % Low 42.0 - 54.0 % [facility] Hemoglobin (Bld) [Mass/Vol] 12.3 g/dL Low 14.0 - 18.0 g/dL [facility] IMMATURE GRANULOCYTES ABS AUTO 0.01 [facility] Immature granulocytes/100 WBC (Bld) 0.1 % 0.0 - 0.5 % [facility] Interpretation and review of laboratory results Abnormal [facility] LYMPHOCYTES ABSOLUTE AUTO 0.8 Low [facility] Lymphocytes/100 WBC (Bld) 11.8 % Low 20.5 - 60.0 % [facility] MCH (RBC) [Entitic mass] 29.9 pg 25.9 - 34.0 pg [facility] MCHC (RBC) [Mass/Vol] 34.2 g/dL 29.9 - 35.2 g/dL [facility] MCV (RBC) [Entitic vol] 87.4 fL 80.0 - 94.0 fL [facility] MONOCYTES ABSOLUTE AUTO 0.5 [facility] Monocytes/100 WBC (Bld) 7.7 % 1.7 - 12.0 % [facility] NEUTROPHILS ABSOLUTE AUTO 5.4 [facility] Neutrophils/100 WBC (Bld) 76.7 % High 43.0 - 75.0 % [facility] Platelet mean volume (Bld) [Entitic vol] 9.4 fL Low 9.5 - 13.5 fL [facility] TB EO # 0.2 [facility] TBH PLT 233 [facility] TB RBC 4.12 Low [facility] TB WBC 7.1 [facility] Orders Onlyon 01-16-2024 Orders Only [id number] Roger Kerr 1950 M Date Provider Department Center 01/16/2024 [id number] MARQUES None Family History Problem Relation Age of Onset Diabetes Mother Hypertension Mother Coronary artery disease Mother Other Mother Cystic kidney disease Mother Hypertension Father Skin cancer Father Cystic kidney disease Father Cystic kidney disease Sister Heart disease Brother ALS Brother Cystic kidney disease Brother Family Status - Relation Status Age at Mother Father Sister Brother Normal [facility] ALL CBC WITH AUTO DIFFon BASOPHILS ABSOLUTE AUTO 0.0 [facility] Basophils/100 WBC (Bld) 0.5 % 0.2 - 2.0 % [facility] Eosinophils/100 WBC (Bld) 6.0 % 0.9 - 7.0 % [facility] Erythrocyte distribution width (RBC) [Ratio] 13.9 % 11.0 - 15.0 % [facility] Hematocrit (Bld) [Volume fraction] 35.3 % Low 42.0 - 54.0 % [facility] Hemoglobin (Bld) [Mass/Vol] 11.7 g/dL Low 14.0 - 18.0 g/dL [facility] IMMATURE GRANULOCYTES ABS AUTO 0.03 [facility] Immature granulocytes/100 WBC (Bld) 0.5 % 0.0 - 0.5 % [facility] Interpretation and review of laboratory results Abnormal [facility] LYMPHOCYTES ABSOLUTE AUTO 0.9 Low [facility] Lymphocytes/100 WBC (Bld) 13.1 % Low 20.5 - 60.0 % [facility] MCH (RBC) [Entitic mass] 29.8 pg 25.9 - 34.0 pg [facility] MCHC (RBC) [Mass/Vol] 33.1 g/dL 29.9 - 35.2 g/dL [facility] MCV (RBC) [Entitic vol] 90.1 fL 80.0 - 94.0 fL [facility] MONOCYTES ABSOLUTE AUTO 0.5 [facility] Monocytes/100 WBC (Bld) 7.6 % 1.7 - 12.0 % [facility] NEUTROPHILS ABSOLUTE AUTO 4.7 [facility] Neutrophils/100 WBC (Bld) 72.3 % 43.0 - 75.0 % [facility] Platelet mean volume (Bld) [Entitic vol] 9.3 fL Low 9.5 - 13.5 fL [facility] TBH EO # 0.4 [facility] PLT 253 [facility] TB RBC 3.92 Low [facility] TBH WBC 6.5 [facility] Follow-Upon 10-31-2023 Follow-Up [id number] Roger Kerr 1950 M Date Provider Department Center 10/31/2023 [id number] LANDIN None Family History Problem Relation Age of Onset Diabetes Mother Hypertension Mother Coronary artery disease Mother Other Mother Cystic kidney disease Mother Hypertension Father Skin cancer Father Cystic kidney disease Father Cystic kidney disease Sister Heart disease Brother ALS Brother Cystic kidney disease Brother Family Status - Relation Status Age at Mother Father Sister Brother Level of Service:[id number] MS OFFICE/OUTPATIENT ESTABLISHED MOD MDM 30 MIN Reason for Visit and Comments: Kidney Follow-up [[id number]] - Pt has no concerns at this time. [facility] FK506 (TACROLIMUS) WHOLE BLO ODon 10-06-2022 Tacrolimus (FK506), Blood 3.8 ng/mL Normal 2.0-20.0 [facility] Comment on above: Result Comment: Trou gh (immediately following transplant) 15.0 . Trough (steady state, 2 weeks or more after transplant): 3.0 - 8.0 . Performed by LC-MS/MS technology. Performed By: #### U CLINT, CMP, LIPID, DBIL, PHOS, MG #### [facility] [address] [place] [address] Dr. Brea Causey BILIRUBIN CONJUGATED (DIRECT )on 10-03-2022 BILI, CONJUGATED 0.1 mg/dL Normal 0.0-0.2 [facility] Comment on above: Performed By: #### C BC #### [facility] [address] [place] [address] Dr. Brea Causey CBC AUTO DIFFon 10-03-2022 BASO # 0.0 103/ul Normal 0.0-0.1 [facility] Comment on above: Performed By: #### U CLINT, CMP, LIPID, DBIL, PHOS, MG #### [facility] [address] [place] [address] Dr. Brea Causey Basophils/100 WBC (Bld) 0.5 % Normal 0.2-2.0 [facility] Comment on above: Performed By: #### U CLINT, CMP, LIPID, DBIL, PHOS, MG #### [facility] [address] [place] [address] Dr. Brea Causey EO # 0.1 103/ul Normal 0.0-0.7 [facility] Comment on above: Performed By: #### U CLINT, CMP, LIPID, DBIL, PHOS, MG #### [facility] [address] [place] [address] Dr. Brea Causey Eosinophils/100 WBC (Bld) 2.3 % Normal 0.9-7.0 [facility] Comment on above: Performed By: #### U CLINT, CMP, LIPID, DBIL, PHOS, MG #### [facility] [address] [address] [address] Brea Causey Erythrocyte distribution width (RBC) [Ratio] 13.2 % Normal 11.0-15.0 [facility] Comment on above: Performed By: #### U CLINT, CMP, LIPID, DBIL, PHOS, MG #### [facility] [address] [place] [address] Dr. Brea Causey Hematocrit (Bld) [Volume fraction] 35.0 % Critically low 42.0-54.0 [facility] Comment on above: Performed By: #### U CLINT, CMP, LIPID, DBIL, PHOS, MG #### [facility] [address] [place] [address] Dr. Brea Causey Hemoglobin (Bld) [Mass/Vol] 11.7 g/dL Critically low 14.0-18.0 [facility] Comment on above: Performed By: #### U CLINT, CMP, LIPID, DBIL, PHOS, MG #### [facility] [address] [place] [address] Dr. Brea Causey IG # 0.06 10e3/ul Critically high 0.00-0.03 [facility] Comment on above: Performed By: #### U CLINT, CMP, LIPID, DBIL, PHOS, MG #### [facility] [address] [place] [address] Dr. Brea Causey IG % 1.1 % Critically high 0.0-0.5 [facility] Comment on above: Performed By: #### U CLINT, CMP, LIPID, DBIL, PHOS, MG #### [facility] [address] [place] [address] Dr. Brea Causey LYMPH # 0.8 103/ul Critically low 1.2-3.8 [facility] Comment on above: Performed By: #### U CLINT, CMP, LIPID, DBIL, PHOS, MG #### [facility] [address] [place] [address] Dr. Brea Causey Lymphocytes/100 WBC (Bld) 14.9 % Critically low 20.5-60.0 [facility] Comment on above: Performed By: #### U CLINT, CMP, LIPID, DBIL, PHOS, MG #### [facility] [address] [place] [address] Dr. Brea Causey MANUAL DIFF REQ NO Normal [facility] Comment on above: Performed By: #### U CLINT, CMP, LIPID, DBIL, PHOS, MG #### [facility] [address] [place] [address] Dr. Brea Causey MCH (RBC) [Entitic mass] 28.8 pg Normal 25.9-34.0 [facility] Comment on above: Performed By: #### U CLINT, CMP, LIPID, DBIL, PHOS, MG #### [facility] [address] [place] [address] Dr. Brea Causey MCHC (RBC) [Mass/Vol] 33.4 g/dL Normal 29.9-35.2 [facility] Comment on above: Performed By: #### U CLINT, CMP, LIPID, DBIL, PHOS, MG #### [facility] [address] [place] [address] Dr. Brea Causey MCV (RBC) [Entitic vol] 86.2 fL Normal 80.0-94.0 [facility] Comment on above: Performed By: #### U CLINT, CMP, LIPID, DBIL, PHOS, MG #### [facility] [address] [place] [address] Dr. Brea Causey MONO # 0.5 103/ul Normal 0.3-0.8 [facility] Comment on above: Performed By: #### U CLNIT, CMP, LIPID, DBIL, PHOS, MG #### [facility] [address] [place] [address] Dr. Brea Causey Monocytes/100 WBC (Bld) 9.1 % Normal 1.7-12.0 [facility] Comment on above: Performed By: #### U CLINT, CMP, LIPID, DBIL, PHOS, MG #### [facility] [address] [place] [address] Dr. Brea Causey NEUT # 4.1 103/ul Normal 1.4-6.5 [facility] Comment on above: Performed By: #### U CLINT, CMP, LIPID, DBIL, PHOS, MG #### [facility] [address] [address] [address] Brea Causey Neutrophils/100 WBC (Bld) 72.1 % Normal 43.0-75.0 [facility] Comment on above: Performed By: #### U CLINT, CMP, LIPID, DBIL, PHOS, MG #### [facility] [address] [address] [address] Brea Causey Platelet mean volume (Bld) [Entitic vol] 9.0 fL Critically low 9.5-13.5 [facility] Comment on above: Performed By: #### U CLINT, CMP, LIPID, DBIL, PHOS, MG #### [facility] [address] [address] [address] Brea Causey PLT 211 103/ul Normal 150-450 [facility] Comment on above: Performed By: #### U CLINT, CMP, LIPID, DBIL, PHOS, MG #### [facility] [address] [address] [address] Brea Causey RBC 4.06 106/ul Critically low 4.70-6.10 [facility] Comment on above: Performed By: #### U CLINT, CMP, LIPID, DBIL, PHOS, MG #### [facility] [address] [address] [address] Brea Causey WBC 5.6 103/ul Normal 4.0-11.0 [facility] Comment on above: Performed By: #### U CLINT, CMP, LIPID, DBIL, PHOS, MG #### [facility] [address] [place] [address] Dr. Brea Causey LIPID PROFILEon 10-03-2022 CHOL-HDL RATIO NORM SEE BELOW Normal [facility] Comment on above: Result Comment: 3.3 - 4.4 LOW RISK 4.4 - 7.1 AVERAGE RISK 7.1 - 11.0 MODERATE RISK >11.0 HIGH RISK Performed By: #### C BC #### [facility] [address] [place] [address] Dr. Brea Causey Cholesterol [Mass/Vol] 93 mg/dL Normal <=200 [facility] Comment on above: Performed By: #### C BC #### [facility] [address] [address] [address] Brea Causey Cholesterol in HDL [Mass/Vol] 43 mg/dL Normal 40-60 [facility] Comment on above: Performed By: #### C BC #### [facility] [address] [address] [address] Brea Causey Cholesterol in LDL [Mass/Vol] 37.6 mg/dL Normal [facility] Comment on above: Performed By: #### C BC #### [facility] [address] [address] [address] Brea Causey Cholesterol.total/Chol esterol in HDL [Mass ratio] 2.2 {ratio} Normal [facility] Comment on above: Performed By: #### C BC #### [facility] [address] [address] [address] Brea Causey HDL NORMAL > or = 60 mg/dl - LO W CARDIOVASCULAR RISK <40 mg/dl - HIGH CARDIOVASCULAR RISK Normal [facility] Comment on above: Performed By: #### C BC #### [facility] [address] [address] [address] Brea Causey LDL CALC NORMAL SEE BELOW Normal [facility] Comment on above: Result Comment: <100 mg/dl OPTIMAL 100 - 129 mg/dl NEAR OR ABOVE OPTIMAL 130 - 159 mg/dl BORDERLINE HIGH 160 - 189 mg/dl HIGH >190 mg/dl VERY HIGH Performed By: #### C BC #### [facility] [address] [address] [address] Brea Causey Triglyceride [Mass/Vol] 62 mg/dL Normal <=150 [facility] Comment on above: Performed By: #### C BC #### [facility] [address] [address] [address] Brea Causey VLDL CALC 12.4 mg/dL Normal [facility] Comment on above: Performed By: #### C BC #### [facility] [address] [address] [address] Brea aCusey MAGNESIUMon 10-03-2022 Magnesium [Mass/Vol] 1.5 mg/dL Critically low 1.8-2.4 [facility] Comment on above: Performed By: #### C BC #### [facility] [address] [place] [address] Dr. Brea Causey PHOSPHORUSon 10-03-2022 Phosphate [Mass/Vol] 4.4 mg/dL Normal 2.6-4.7 [facility] Comment on above: Performed By: #### C BC #### [facility] [address] [place] [address] Dr. Brea Causey PROF 14(COMP METB)on 023 Albumin [Mass/Vol] 3.8 g/dL Normal 3.4-5.0 [facility] Comment on above: Performed By: #### C BC #### [facility] [address] [place] [address] Dr. Brea Causey Albumin/Globulin [Mass ratio] 1.1 {ratio} Normal [facility] Comment on above: Performed By: #### C BC #### [facility] [address] [place] [address] Dr. Brea Causey ALP [Catalytic activity/Vol] 190 U/L Critically high 46-116 [facility] Comment on above: Performed By: #### C BC #### [facility] [address] [place] [address] Dr. Brea Causey ALT [Catalytic activity/Vol] 26 U/L Normal 16-63 [facility] Comment on above: Performed By: #### C BC #### [facility] [address] [place] [address] Dr. Brea Causey Anion gap [Moles/Vol] 15.3 mmol/L Normal [facility] Comment on above: Performed By: #### C BC #### [facility] [address] [place] [address] Dr. Brea Causey AST [Catalytic activity/Vol] 23 U/L Normal 15-37 [facility] Comment on above: Performed By: #### C BC #### [facility] [address] [address] [address] Brea Causey Bilirubin [Mass/Vol] 0.4 mg/dL Normal 0.2-1.0 [facility] Comment on above: Performed By: #### C BC #### [facility] [address] [address] [address] Brea Causey Calcium [Mass/Vol] 7.8 mg/dL Critically low 8.5-10.1 [facility] Comment on above: Performed By: #### C BC #### [facility] [address] [address] [address] Brae Causey Chloride [Moles/Vol] 97 mmol/L Critically low 98-107 [facility] Comment on above: Performed By: #### C BC #### [facility] [address] [place] [address] Dr. Brea Causey CO2 [Moles/Vol] 25.6 mmol/L Normal 21.0-32.0 [facility] Comment on above: Performed By: #### C BC #### [facility] [address] [place] [address] Dr. Brea Causey Creatinine [Mass/Vol] 1.03 mg/dL Normal 0.70-1.30 [facility] Comment on above: Performed By: #### C BC #### [facility] [address] [place] [address] Dr. Brea Causey EGFR-AF SAMMARINESE >60 Normal >=60 [facility] Comment on above: Performed By: #### C BC #### [facility] [address] [place] [address] Dr. Brea Causey EGFR-NON AF SAMMARINESE >60 Normal >=60 [facility] Comment on above: Performed By: #### C BC #### [facility] [address] [place] [address] Dr. Brea Causey Globulin (S) [Mass/Vol] 3.6 g/dL Normal [facility] Comment on above: Performed By: #### C BC #### [facility] [address] [place] [address] Dr. Brea Causey Glucose [Mass/Vol] 188 mg/dL Critically high 74-106 [facility] Comment on above: Performed By: #### C BC #### [facility] [address] [address] [address] Brea Causey Potassium [Moles/Vol] 4.9 mmol/L Normal 3.5-5.1 [facility] Comment on above: Performed By: #### C BC #### [facility] [address] [place] [address] Dr. Brea Causey Protein [Mass/Vol] 7.4 g/dL Normal 6.4-8.2 [facility] Comment on above: Performed By: #### C BC #### [facility] [address] [place] [address] Dr. Brea Causey Sodium [Moles/Vol] 133 mmol/L Critically low 136-145 Th [facility] Comment on above: Performed By: #### C BC #### [facility] [address] [place] [address] Dr. Brea Causey Urea nitrogen [Mass/Vol] 11.0 mg/dL Normal 7.0-18.0 [facility] Comment on above: Performed By: #### C BC #### [facility] [address] [place] [address] Dr. Brea Causey Urea nitrogen/Creatinine [Mass ratio] 10.7 mg/mg Normal [facility] Comment on above: Performed By: #### C BC #### [facility] [address] [place] [address] Dr. Brea Causey URIC ACID SERUMon 10-03-2022 Urate [Mass/Vol] 5.7 mg/dL Normal 3.5-7.2 [facility] Comment on above: Performed By: #### C BC #### [facility] [address] [place] [address] Dr. Brea Causey BK VIRUS PCR QUANTon 023 BKV DNA QUANT PCR PLASMA Negative Normal Negative [facility] Comment on above: Result Comment: No B K DNA detected. . The linear range of the assay is 22 - 100,000,000 IU/mL. Performed By: #### U CLINT, CMP, LIPID, DBIL, PHOS, MG #### [facility] [id number] Brea Causey Log10 BKV DNA Plasma Normal [facility] Comment on above: Performed By: #### U CLINT, CMP, LIPID, DBIL, PHOS, MG #### [facility] [address] [address] [address] Brea Causey FK506 (TACROLIMUS) WHOLE BLO ODon 09-02-2022 Tacrolimus (FK506), Blood 3.8 ng/mL Normal 2.0-20.0 [facility] Comment on above: Result Comment: Trou gh (immediately following transplant) 15.0 . Trough (steady state, 2 weeks or more after transplant): 3.0 - 8.0 . Performed by LC-MS/MS technology. Performed By: #### U CLINT, CMP, LIPID, DBIL, PHOS, MG #### [facility] [address] [place] [address] Dr. Brea Causey TESTOSTERONE, FREE,DIRECT, T OTALon 09-01-2022 Free Testosterone(Direct) 9.7 pg/mL Normal 6.6-18.1 [facility] Comment on above: Result Comment: Perf ormed at: BN Performed By: #### U CLINT, CMP, LIPID, DBIL, PHOS, MG #### [facility] [address] [place], [place] [id number] Dr. Brea Causey Testosterone [Mass/Vol] 565 ng/dL Normal 264-916 [facility] Comment on above: Result Comment: Adul t male reference interval is based on a population of healthy nonobese males (BMI <30) between 19 and 39 years old. Steven, et.al. JCEM 2017,102;2817-8822. PMID: [id number]. Performed at: CB Performed By: #### U CLINT, CMP, LIPID, DBIL, PHOS, MG #### [facility] [address] [address] [address] Brea Causey BILIRUBIN CONJUGATED (DIRECT )on 08-30-2022 BILI, CONJUGATED 0.1 mg/dL Normal 0.0-0.2 [facility] Comment on above: Performed By: #### U CLINT, CMP, LIPID, DBIL, PHOS, MG #### [facility] [address] [place] [address] Dr. Brea Causey CBC AUTO DIFFon 08-30-2022 BASO # 0.0 103/ul Normal 0.0-0.1 [facility] Comment on above: Performed By: #### U CLINT, CMP, LIPID, DBIL, PHOS, MG #### [facility] [address] [place] [address] Dr. Brea Causey Basophils/100 WBC (Bld) 0.7 % Normal 0.2-2.0 [facility] Comment on above: Performed By: #### U CLINT, CMP, LIPID, DBIL, PHOS, MG #### [facility] [address] [place] [address] Dr. Brea Causey EO # 0.2 103/ul Normal 0.0-0.7 [facility] Comment on above: Performed By: #### U CLINT, CMP, LIPID, DBIL, PHOS, MG #### [facility] [address] [place] [address] Dr. Brea Causey Eosinophils/100 WBC (Bld) 3.6 % Normal 0.9-7.0 [facility] Comment on above: Performed By: #### U CLINT, CMP, LIPID, DBIL, PHOS, MG #### [facility] [address] [place] [address] Dr. Brea Causey Erythrocyte distribution width (RBC) [Ratio] 13.2 % Normal 11.0-15.0 [facility] Comment on above: Performed By: #### U CLINT, CMP, LIPID, DBIL, PHOS, MG #### [facility] [address] [place] [address] Dr. Brea Causey Hematocrit (Bld) [Volume fraction] 36.0 % Critically low 42.0-54.0 [facility] Comment on above: Performed By: #### U CLINT, CMP, LIPID, DBIL, PHOS, MG #### [facility] [address] [place] [address] Dr. Brea Causey Hemoglobin (Bld) [Mass/Vol] 12.2 g/dL Critically low 14.0-18.0 [facility] Comment on above: Performed By: #### U CLINT, CMP, LIPID, DBIL, PHOS, MG #### [facility] [address] [place] [address] Dr. Brea Causey IG # 0.07 10e3/ul Critically high 0.00-0.03 [facility] Comment on above: Performed By: #### U CLINT, CMP, LIPID, DBIL, PHOS, MG #### [facility] [address] [place] [address] Dr. Brea Causey IG % 1.2 % Critically high 0.0-0.5 [facility] Comment on above: Performed By: #### U CLINT, CMP, LIPID, DBIL, PHOS, MG #### [facility] [address] [place] [address] Dr. Brea Causey LYMPH # 0.9 103/ul Critically low 1.2-3.8 [facility] Comment on above: Performed By: #### U CLINT, CMP, LIPID, DBIL, PHOS, MG #### [facility] [address] [place] [address] Dr. Brea Causey Lymphocytes/100 WBC (Bld) 15.0 % Critically low 20.5-60.0 [facility] Comment on above: Performed By: #### U CLINT, CMP, LIPID, DBIL, PHOS, MG #### [facility] [address] [place] [address] Dr. Brea Causey MANUAL DIFF REQ NO Normal [facility] Comment on above: Performed By: #### U CLINT, CMP, LIPID, DBIL, PHOS, MG #### [facility] [address] [place] [address] Dr. Brea Causey MCH (RBC) [Entitic mass] 29.4 pg Normal 25.9-34.0 [facility] Comment on above: Performed By: #### U CLINT, CMP, LIPID, DBIL, PHOS, MG #### [facility] [address] [address] [address] Brea Causey MCHC (RBC) [Mass/Vol] 33.9 g/dL Normal 29.9-35.2 [facility] Comment on above: Performed By: #### U CLINT, CMP, LIPID, DBIL, PHOS, MG #### [facility] [address] [place] [address] Dr. Brea Causey MCV (RBC) [Entitic vol] 86.7 fL Normal 80.0-94.0 [facility] Comment on above: Performed By: #### U CLINT, CMP, LIPID, DBIL, PHOS, MG #### [facility] [address] [place] [address] Dr. Brea Causey MONO # 0.5 103/ul Normal 0.3-0.8 [facility] Comment on above: Performed By: #### U CLINT, CMP, LIPID, DBIL, PHOS, MG #### [facility] [address] [place] [address] Dr. Brea Causey Monocytes/100 WBC (Bld) 9.0 % Normal 1.7-12.0 [facility] Comment on above: Performed By: #### U CLINT, CMP, LIPID, DBIL, PHOS, MG #### [facility] [address] [place] [address] Dr. Brea Causey NEUT # 4.2 103/ul Normal 1.4-6.5 [facility] Comment on above: Performed By: #### U CLINT, CMP, LIPID, DBIL, PHOS, MG #### [facility] [address] [place] [address] Dr. Brea Causey Neutrophils/100 WBC (Bld) 70.5 % Normal 43.0-75.0 [facility] Comment on above: Performed By: #### U CLINT, CMP, LIPID, DBIL, PHOS, MG #### [facility] [address] [place] [address] Dr. Brea Causey Platelet mean volume (Bld) [Entitic vol] 8.7 fL Critically low 9.5-13.5 [facility] Comment on above: Performed By: #### U CLINT, CMP, LIPID, DBIL, PHOS, MG #### [facility] [address] [address] [address] Brea Causey PLT 247 103/ul Normal 150-450 [facility] Comment on above: Performed By: #### U CLINT, CMP, LIPID, DBIL, PHOS, MG #### [facility] [address] [address] [address] Brea Causey RBC 4.15 106/ul Critically low 4.70-6.10 [facility] Comment on above: Performed By: #### U CLINT, CMP, LIPID, DBIL, PHOS, MG #### [facility] [address] [address] [address] Brea Causey WBC 5.9 103/ul Normal 4.0-11.0 [facility] Comment on above: Performed By: #### U CLINT, CMP, LIPID, DBIL, PHOS, MG #### [facility] [address] [place] [address] Dr. Brea Causey GLYCOHEMOGLOBIN A1Con 2022 ADA RECOMMENDATION SEE BELOW Normal [facility] Comment on above: Result Comment: ADA RECOMMENDED LIMIT 4.0 - 6.0 ADA THERAPEUTIC TARGET < 7.0 ACTION SUGGESTED > 7.0 Performed By: #### U CLINT, CMP, LIPID, DBIL, PHOS, MG #### [facility] [address] [address] [address] Brea Causey Glucose [Mass/Vol] 177 mg/dL Normal [facility] Comment on above: Performed By: #### U CLINT, CMP, LIPID, DBIL, PHOS, MG #### [facility] [address] [address] [address] Brea Causey HbA1c (Bld) [Mass fraction] 7.8 % Critically high 4.5-6.2 [facility] Comment on above: Performed By: #### U CLINT, CMP, LIPID, DBIL, PHOS, MG #### [facility] [address] [address] [address] Brea Causey LIPID PROFILEon 08-30-2022 CHOL-HDL RATIO NORM SEE BELOW Normal [facility] Comment on above: Result Comment: 3.3 - 4.4 LOW RISK 4.4 - 7.1 AVERAGE RISK 7.1 - 11.0 MODERATE RISK >11.0 HIGH RISK Performed By: #### U CLINT, CMP, LIPID, DBIL, PHOS, MG #### [facility] [address] [address] [address] Brea Causey Cholesterol [Mass/Vol] 96 mg/dL Normal <=200 Th [facility] Comment on above: Performed By: #### U CLINT, CMP, LIPID, DBIL, PHOS, MG #### [facility] [address] [place] [address] Dr. Brea Causey Cholesterol in HDL [Mass/Vol] 48 mg/dL Normal 40-60 [facility] Comment on above: Performed By: #### U CLINT, CMP, LIPID, DBIL, PHOS, MG #### [facility] [address] [place] [address] Dr. Brea Causey Cholesterol in LDL [Mass/Vol] 40.2 mg/dL Normal [facility] Comment on above: Performed By: #### U CLINT, CMP, LIPID, DBIL, PHOS, MG #### [facility] [address] [place] [address] Dr. Brea Causey Cholesterol.total/Chol esterol in HDL [Mass ratio] 2.0 {ratio} Normal [facility] Comment on above: Performed By: #### U CLINT, CMP, LIPID, DBIL, PHOS, MG #### [facility] [address] [place] [address] Dr. Brea Causey HDL NORMAL > or = 60 mg/dl - LO W CARDIOVASCULAR RISK <40 mg/dl - HIGH CARDIOVASCULAR RISK Normal [facility] Comment on above: Performed By: #### U CLINT, CMP, LIPID, DBIL, PHOS, MG #### [facility] [address] [place] [address] Dr. Brea Causey LDL CALC NORMAL SEE BELOW Normal [facility] Comment on above: Result Comment: <100 mg/dl OPTIMAL 100 - 129 mg/dl NEAR OR ABOVE OPTIMAL 130 - 159 mg/dl BORDERLINE HIGH 160 - 189 mg/dl HIGH >190 mg/dl VERY HIGH Performed By: #### U CLINT, CMP, LIPID, DBIL, PHOS, MG #### [facility] [address] [address] [address] Brea Causey Triglyceride [Mass/Vol] 39 mg/dL Normal <=150 [facility] Comment on above: Performed By: #### U CLINT, CMP, LIPID, DBIL, PHOS, MG #### [facility] [address] [address] [address] Brea Causey VLDL CALC 7.8 mg/dL Normal [facility] Comment on above: Performed By: #### U CLINT, CMP, LIPID, DBIL, PHOS, MG #### [facility] [address] [place] [address] Dr. Brea Causey MAGNESIUMon 08-30-2022 Magnesium [Mass/Vol] 1.5 mg/dL Critically low 1.8-2.4 [facility] Comment on above: Performed By: #### U CLINT, CMP, LIPID, DBIL, PHOS, MG #### [facility] [address] [address] [address] Brea Causey PHOSPHORUSon 08-30-2022 Phosphate [Mass/Vol] 4.0 mg/dL Normal 2.6-4.7 [facility] Comment on above: Performed By: #### U CLINT, CMP, LIPID, DBIL, PHOS, MG #### [facility] [address] [address] [address] Brea Causey PROF 14(COMP METB)on 023 Albumin [Mass/Vol] 3.8 g/dL Normal 3.4-5.0 [facility] Comment on above: Performed By: #### U CLINT, CMP, LIPID, DBIL, PHOS, MG #### [facility] [address] [address] [address] Brea Causey Albumin/Globulin [Mass ratio] 1.1 {ratio} Normal [facility] Comment on above: Performed By: #### U CLINT, CMP, LIPID, DBIL, PHOS, MG #### [facility] [address] [place] [address] Dr. Brea Casuey ALP [Catalytic activity/Vol] 177 U/L Critically high 46-116 [facility] Comment on above: Performed By: #### U CLINT, CMP, LIPID, DBIL, PHOS, MG #### [facility] [address] [place] [address] Dr. Brea Causey ALT [Catalytic activity/Vol] 27 U/L Normal 16-63 [facility] Comment on above: Performed By: #### U CLINT, CMP, LIPID, DBIL, PHOS, MG #### [facility] [address] [place] [address] Dr. Brea Causey Anion gap [Moles/Vol] 12.1 mmol/L Normal [facility] Comment on above: Performed By: #### U CLINT, CMP, LIPID, DBIL, PHOS, MG #### [facility] [address] [place] [address] Dr. Brea Causey AST [Catalytic activity/Vol] 19 U/L Normal 15-37 [facility] Comment on above: Performed By: #### U CLINT, CMP, LIPID, DBIL, PHOS, MG #### [facility] [address] [place] [address] Dr. Brea Causey Bilirubin [Mass/Vol] 0.3 mg/dL Normal 0.2-1.0 [facility] Comment on above: Performed By: #### U CLINT, CMP, LIPID, DBIL, PHOS, MG #### [facility] [address] [place] [address] Dr. Brea Causey Calcium [Mass/Vol] 8.0 mg/dL Critically low 8.5-10.1 [facility] Comment on above: Performed By: #### U CLINT, CMP, LIPID, DBIL, PHOS, MG #### [facility] [address] [place] [address] Dr. Brea Causey Chloride [Moles/Vol] 96 mmol/L Critically low 98-107 [facility] Comment on above: Performed By: #### U CLINT, CMP, LIPID, DBIL, PHOS, MG #### [facility] [address] [address] [address] Brea Causey CO2 [Moles/Vol] 28.0 mmol/L Normal 21.0-32.0 [facility] Comment on above: Performed By: #### U CLINT, CMP, LIPID, DBIL, PHOS, MG #### [facility] [address] [place] [address] Dr. Brea Causey Creatinine [Mass/Vol] 1.07 mg/dL Normal 0.70-1.30 [facility] Comment on above: Performed By: #### U CLINT, CMP, LIPID, DBIL, PHOS, MG #### [facility] [address] [place] [address] Dr. Brea Causey EGFR-AF SAMMARINESE >60 Normal >=60 [facility] Comment on above: Performed By: #### U CLINT, CMP, LIPID, DBIL, PHOS, MG #### [facility] [address] [place] [address] Dr. Brea Causey EGFR-NON AF SAMMARINESE >60 Normal >=60 [facility] Comment on above: Performed By: #### U CLINT, CMP, LIPID, DBIL, PHOS, MG #### [facility] [address] [place] [address] Dr. Brea Causey Globulin (S) [Mass/Vol] 3.5 g/dL Normal [facility] Comment on above: Performed By: #### U CLINT, CMP, LIPID, DBIL, PHOS, MG #### [facility] [address] [place] [address] Dr. Brea Causey Glucose [Mass/Vol] 179 mg/dL Critically high 74-106 [facility] Comment on above: Performed By: #### U CLINT, CMP, LIPID, DBIL, PHOS, MG #### [facility] [address] [place] [address] Dr. Brea Causey Potassium [Moles/Vol] 5.1 mmol/L Normal 3.5-5.1 [facility] Comment on above: Performed By: #### U CLINT, CMP, LIPID, DBIL, PHOS, MG #### [facility] [address] [address] [address] Brea Causey Protein [Mass/Vol] 7.3 g/dL Normal 6.4-8.2 [facility] Comment on above: Performed By: #### U CLINT, CMP, LIPID, DBIL, PHOS, MG #### [facility] [address] [address] [address] Brea Causey Sodium [Moles/Vol] 131 mmol/L Critically low 136-145 [facility] Comment on above: Performed By: #### U CLINT, CMP, LIPID, DBIL, PHOS, MG #### [facility] [address] [address] [address] Brea Causey Urea nitrogen [Mass/Vol] 10.0 mg/dL Normal 7.0-18.0 [facility] Comment on above: Performed By: #### U CLINT, CMP, LIPID, DBIL, PHOS, MG #### [facility] [address] [address] [address] Brea Causey Urea nitrogen/Creatinine [Mass ratio] 9.3 mg/mg Normal [facility] Comment on above: Performed By: #### U CLINT, CMP, LIPID, DBIL, PHOS, MG #### [facility] [address] [address] [address] Brea Causey URIC ACID SERUMon 08-30-2022 Urate [Mass/Vol] 6.0 mg/dL Normal 3.5-7.2 [facility] Comment on above: Performed By: #### U CLINT, CMP, LIPID, DBIL, PHOS, MG #### [facility] [address] [address] [address] Brea Causey FK506 (TACROLIMUS) WHOLE BLO ODon 08-03-2022 Tacrolimus (FK506), Blood 3.2 ng/mL Normal 2.0-20.0 [facility] Comment on above: Result Comment: Trou gh (immediately following transplant) 15.0 . Trough (steady state, 2 weeks or more after transplant): 3.0 - 8.0 . Performed by CECE-MS/MS technology. Performed By: #### C BC #### [facility] [address] [place] [address] Dr. Brea Causey BILIRUBIN CONJUGATED (DIRECT )on 08-01-2022 BILI, CONJUGATED 0.1 mg/dL Normal 0.0-0.2 [facility] Comment on above: Performed By: #### U CLINT, CMP, LIPID, DBIL, PHOS, MG #### [facility] [address] [place] [address] Dr. Brea Causey CBC AUTO DIFFon 08-01-2022 BASO # 0.0 103/ul Normal 0.0-0.1 [facility] Comment on above: Performed By: #### C BC #### [facility] [address] [place] [address] Dr. Brea Causey Basophils/100 WBC (Bld) 0.7 % Normal 0.2-2.0 [facility] Comment on above: Performed By: #### C BC #### [facility] [address] [place] [address] Dr. Brea Causey EO # 0.1 103/ul Normal 0.0-0.7 [facility] Comment on above: Performed By: #### C BC #### [facility] [address] [place] [address] Dr. Brea Causey Eosinophils/100 WBC (Bld) 2.4 % Normal 0.9-7.0 [facility] Comment on above: Performed By: #### C BC #### [facility] [address] [place] [address] Dr. Brea Causey Erythrocyte distribution width (RBC) [Ratio] 13.3 % Normal 11.0-15.0 [facility] Comment on above: Performed By: #### C BC #### [facility] [address] [place] [address] Dr. Brea Causey Hematocrit (Bld) [Volume fraction] 36.5 % Critically low 42.0-54.0 [facility] Comment on above: Performed By: #### C BC #### [facility] [address] [address] [address] Brea Causey Hemoglobin (Bld) [Mass/Vol] 12.1 g/dL Critically low 14.0-18.0 [facility] Comment on above: Performed By: #### C BC #### [facility] [address] [place] [address] Dr. Brea Causey IG # 0.07 10e3/ul Critically high 0.00-0.03 [facility] Comment on above: Performed By: #### C BC #### [facility] [address] [place] [address] Dr. Brea Causey IG % 1.2 % Critically high 0.0-0.5 [facility] Comment on above: Performed By: #### C BC #### [facility] [address] [place] [address] Dr. Brea Causey LYMPH # 0.9 103/ul Critically low 1.2-3.8 [facility] Comment on above: Performed By: #### C BC #### [facility] [address] [place] [address] Dr. Brea Causey Lymphocytes/100 WBC (Bld) 14.5 % Critically low 20.5-60.0 [facility] Comment on above: Performed By: #### C BC #### [facility] [address] [place] [address] Dr. Brea Causey MANUAL DIFF REQ NO Normal [facility] Comment on above: Performed By: #### C BC #### [facility] [address] [address] [address] Brea Causey MCH (RBC) [Entitic mass] 28.8 pg Normal 25.9-34.0 [facility] Comment on above: Performed By: #### C BC #### [facility] [address] [place] [address] Dr. Brea Causey MCHC (RBC) [Mass/Vol] 33.2 g/dL Normal 29.9-35.2 [facility] Comment on above: Performed By: #### C BC #### [facility] [address] [place] [address] Dr. Brea Causey MCV (RBC) [Entitic vol] 86.9 fL Normal 80.0-94.0 [facility] Comment on above: Performed By: #### C BC #### [facility] [address] [place] [address] Dr. Brea Causey MONO # 0.6 103/ul Normal 0.3-0.8 [facility] Comment on above: Performed By: #### C BC #### [facility] [address] [place] [address] Dr. Brea Causey Monocytes/100 WBC (Bld) 10.3 % Normal 1.7-12.0 [facility] Comment on above: Performed By: #### C BC #### [facility] [address] [place] [address] Dr. Brea Causey NEUT # 4.2 103/ul Normal 1.4-6.5 [facility] Comment on above: Performed By: #### C BC #### [facility] [address] [place] [address] Dr. Brea Causey Neutrophils/100 WBC (Bld) 70.9 % Normal 43.0-75.0 [facility] Comment on above: Performed By: #### C BC #### [facility] [address] [place] [address] Dr. Brea Causey Platelet mean volume (Bld) [Entitic vol] 9.1 fL Critically low 9.5-13.5 [facility] Comment on above: Performed By: #### C BC #### [facility] [address] [place] [address] Dr. Brea Causey PLT 248 103/ul Normal 150-450 [facility] Comment on above: Performed By: #### C BC #### [facility] [address] [place] [address] Dr. Brea Causey RBC 4.20 106/ul Critically low 4.70-6.10 [facility] Comment on above: Performed By: #### C BC #### [facility] [address] [place] [address] Dr. Brea Causey WBC 5.9 103/ul Normal 4.0-11.0 [facility] Comment on above: Performed By: #### C BC #### [facility] [address] [place] [address] Dr. Brea Causey LIPID PROFILEon 08-01-2022 CHOL-HDL RATIO NORM SEE BELOW Normal [facility] Comment on above: Result Comment: 3.3 - 4.4 LOW RISK 4.4 - 7.1 AVERAGE RISK 7.1 - 11.0 MODERATE RISK >11.0 HIGH RISK Performed By: #### U CLINT, CMP, LIPID, DBIL, PHOS, MG #### [facility] [address] [place] [address] Dr. Brea Causey Cholesterol [Mass/Vol] 95 mg/dL Normal <=200 [facility] Comment on above: Performed By: #### U CLINT, CMP, LIPID, DBIL, PHOS, MG #### [facility] [address] [place] [address] Dr. Brea Causey Cholesterol in HDL [Mass/Vol] 49 mg/dL Normal 40-60 [facility] Comment on above: Performed By: #### U CLINT, CMP, LIPID, DBIL, PHOS, MG #### [facility] [address] [place] [address] Dr. Brea Causey Cholesterol in LDL [Mass/Vol] 35.4 mg/dL Normal [facility] Comment on above: Performed By: #### U CLINT, CMP, LIPID, DBIL, PHOS, MG #### [facility] [address] [place] [address] Dr. Brea Causey Cholesterol.total/Chol esterol in HDL [Mass ratio] 1.9 {ratio} Normal [facility] Comment on above: Performed By: #### U CLINT, CMP, LIPID, DBIL, PHOS, MG #### [facility] [address] [place] [address] Dr. Brea Causey HDL NORMAL > or = 60 mg/dl - LO W CARDIOVASCULAR RISK <40 mg/dl - HIGH CARDIOVASCULAR RISK Normal [facility] Comment on above: Performed By: #### U CLINT, CMP, LIPID, DBIL, PHOS, MG #### [facility] [address] [address] [address] Brea Causey LDL CALC NORMAL SEE BELOW Normal [facility] Comment on above: Result Comment: <100 mg/dl OPTIMAL 100 - 129 mg/dl NEAR OR ABOVE OPTIMAL 130 - 159 mg/dl BORDERLINE HIGH 160 - 189 mg/dl HIGH >190 mg/dl VERY HIGH Performed By: #### U CLINT, CMP, LIPID, DBIL, PHOS, MG #### [facility] [address] [address] [address] Brea Causey Triglyceride [Mass/Vol] 53 mg/dL Normal <=150 [facility] Comment on above: Performed By: #### U CLINT, CMP, LIPID, DBIL, PHOS, MG #### [facility] [address] [place] [address] Dr. Brea Causey VLDL CALC 10.6 mg/dL Normal [facility] Comment on above: Performed By: #### U CLINT, CMP, LIPID, DBIL, PHOS, MG #### [facility] [address] [place] [address] Dr. Brea Causey MAGNESIUMon 08-01-2022 Magnesium [Mass/Vol] 1.5 mg/dL Critically low 1.8-2.4 [facility] Comment on above: Performed By: #### U CLINT, CMP, LIPID, DBIL, PHOS, MG #### [facility] [address] [place] [address] Dr. Brea Causey PHOSPHORUSon 08-01-2022 Phosphate [Mass/Vol] 3.8 mg/dL Normal 2.6-4.7 [facility] Comment on above: Performed By: #### U CLINT, CMP, LIPID, DBIL, PHOS, MG #### [facility] [address] [address] [address] Brea Causey PROF 14(COMP METB)on 023 Albumin [Mass/Vol] 4.1 g/dL Normal 3.4-5.0 [facility] Comment on above: Performed By: #### U CLINT, CMP, LIPID, DBIL, PHOS, MG #### [facility] [address] [place] [address] Dr. Brea Casuey Albumin/Globulin [Mass ratio] 1.3 {ratio} Normal [facility] Comment on above: Performed By: #### U CLINT, CMP, LIPID, DBIL, PHOS, MG #### [facility] [address] [address] [address] Brea Causey ALP [Catalytic activity/Vol] 197 U/L Critically high 46-116 [facility] Comment on above: Performed By: #### U CLINT, CMP, LIPID, DBIL, PHOS, MG #### [facility] [address] [place] [address] Dr. Brea Causey ALT [Catalytic activity/Vol] 26 U/L Normal 16-63 [facility] Comment on above: Performed By: #### U CLINT, CMP, LIPID, DBIL, PHOS, MG #### [facility] [address] [place] [address] Dr. Brea Causey Anion gap [Moles/Vol] 12.6 mmol/L Normal [facility] Comment on above: Performed By: #### U CLINT, CMP, LIPID, DBIL, PHOS, MG #### [facility] [address] [place] [address] Dr. Brea Causey AST [Catalytic activity/Vol] 20 U/L Normal 15-37 [facility] Comment on above: Performed By: #### U CLINT, CMP, LIPID, DBIL, PHOS, MG #### [facility] [address] [place] [address] Dr. Brea Causey Bilirubin [Mass/Vol] 0.4 mg/dL Normal 0.2-1.0 [facility] Comment on above: Performed By: #### U CLINT, CMP, LIPID, DBIL, PHOS, MG #### [facility] [address] [place] [address] Dr. Brea Causey Calcium [Mass/Vol] 7.9 mg/dL Critically low 8.5-10.1 [facility] Comment on above: Performed By: #### U CLINT, CMP, LIPID, DBIL, PHOS, MG #### [facility] [address] [address] [address] Brea Causey Chloride [Moles/Vol] 97 mmol/L Critically low 98-107 [facility] Comment on above: Performed By: #### U CLINT, CMP, LIPID, DBIL, PHOS, MG #### [facility] [address] [address] [address] Brea Causey CO2 [Moles/Vol] 28.9 mmol/L Normal 21.0-32.0 [facility] Comment on above: Performed By: #### U CLINT, CMP, LIPID, DBIL, PHOS, MG #### [facility] [address] [address] [address] Brea Causey Creatinine [Mass/Vol] 0.98 mg/dL Normal 0.70-1.30 [facility] Comment on above: Performed By: #### U CLINT, CMP, LIPID, DBIL, PHOS, MG #### [facility] [address] [place] [address] Dr. Brea Causey EGFR-AF SAMMARINESE >60 Normal >=60 [facility] Comment on above: Performed By: #### U CLINT, CMP, LIPID, DBIL, PHOS, MG #### [facility] [address] [place] [address] Dr. Brea Causey EGFR-NON AF SAMMARINESE >60 Normal >=60 [facility] Comment on above: Performed By: #### U CLINT, CMP, LIPID, DBIL, PHOS, MG #### [facility] [address] [address] [address] Brea Causey Globulin (S) [Mass/Vol] 3.2 g/dL Normal [facility] Comment on above: Performed By: #### U CLINT, CMP, LIPID, DBIL, PHOS, MG #### [facility] [address] [place] [address] Dr. Brea Causey Glucose [Mass/Vol] 174 mg/dL Critically high 74-106 [facility] Comment on above: Performed By: #### U CLINT, CMP, LIPID, DBIL, PHOS, MG #### [facility] [address] [address] [address] Brea Causey Potassium [Moles/Vol] 4.5 mmol/L Normal 3.5-5.1 [facility] Comment on above: Performed By: #### U CLINT, CMP, LIPID, DBIL, PHOS, MG #### [facility] [address] [place] [address] Dr. Brea Causey Protein [Mass/Vol] 7.3 g/dL Normal 6.4-8.2 [facility] Comment on above: Performed By: #### U CLINT, CMP, LIPID, DBIL, PHOS, MG #### [facility] [address] [address] [address] Brea Causey Sodium [Moles/Vol] 134 mmol/L Critically low 136-145 [facility] Comment on above: Performed By: #### U CLINT, CMP, LIPID, DBIL, PHOS, MG #### [facility] [address] [place] [address] Dr. Brea Causey Urea nitrogen [Mass/Vol] 8.0 mg/dL Normal 7.0-18.0 [facility] Comment on above: Performed By: #### U CLINT, CMP, LIPID, DBIL, PHOS, MG #### [facility] [address] [place] [address] Dr. Brea Causey Urea nitrogen/Creatinine [Mass ratio] 8.2 mg/mg Normal [facility] Comment on above: Performed By: #### U CLINT, CMP, LIPID, DBIL, PHOS, MG #### [facility] [address] [place] [address] Dr. Brea Causey URIC ACID SERUMon 08-01-2022 Urate [Mass/Vol] 5.8 mg/dL Normal 3.5-7.2 [facility] Comment on above: Performed By: #### U CLINT, CMP, LIPID, DBIL, PHOS, MG #### [facility] [address] [place] [address] Dr. Brea Causey FK506 (TACROLIMUS) WHOLE BLO ODon 07-07-2022 Tacrolimus (FK506), Blood 3.6 ng/mL Normal 2.0-20.0 [facility] Comment on above: Result Comment: Trou gh (immediately following transplant) 15.0 . Trough (steady state, 2 weeks or more after transplant): 3.0 - 8.0 . Performed by LC-MS/MS technology. Performed By: #### C BC #### [facility] [address] [place] [address] Dr. Brea Causey BILIRUBIN CONJUGATED (DIRECT )on 07-04-2022 BILI, CONJUGATED 0.1 mg/dL Normal 0.0-0.2 [facility] Comment on above: Performed By: #### B KVIRUS #### [facility] [address] [place] [address] Dr. Brea Causey CBC AUTO DIFFon 07-04-2022 BASO # 0.0 103/ul Normal 0.0-0.1 [facility] Comment on above: Performed By: #### U CLINT, CMP, LIPID, DBIL, PHOS, MG #### [facility] [address] [place] [address] Dr. Brea Causey Basophils/100 WBC (Bld) 0.5 % Normal 0.2-2.0 [facility] Comment on above: Performed By: #### U CLINT, CMP, LIPID, DBIL, PHOS, MG #### [facility] [address] [place] [address] Dr. Brea Causey EO # 0.2 103/ul Normal 0.0-0.7 [facility] Comment on above: Performed By: #### U CLINT, CMP, LIPID, DBIL, PHOS, MG #### [facility] [address] [place] [address] Dr. Brea Causey Eosinophils/100 WBC (Bld) 2.6 % Normal 0.9-7.0 [facility] Comment on above: Performed By: #### U CLINT, CMP, LIPID, DBIL, PHOS, MG #### [facility] [address] [place] [address] Dr. Brea Causey Erythrocyte distribution width (RBC) [Ratio] 13.3 % Normal 11.0-15.0 [facility] Comment on above: Performed By: #### U CLINT, CMP, LIPID, DBIL, PHOS, MG #### [facility] [address] [address] [address] Brea Causey Hematocrit (Bld) [Volume fraction] 37.2 % Critically low 42.0-54.0 [facility] Comment on above: Performed By: #### U CLINT, CMP, LIPID, DBIL, PHOS, MG #### [facility] [address] [place] [address] Dr. Brea Causey Hemoglobin (Bld) [Mass/Vol] 12.4 g/dL Critically low 14.0-18.0 [facility] Comment on above: Performed By: #### U CLINT, CMP, LIPID, DBIL, PHOS, MG #### [facility] [address] [place] [address] Dr. Brea Causey IG # 0.09 10e3/ul Critically high 0.00-0.03 [facility] Comment on above: Performed By: #### U CLINT, CMP, LIPID, DBIL, PHOS, MG #### [facility] [address] [place] [address] Dr. Brea Causey IG % 1.4 % Critically high 0.0-0.5 [facility] Comment on above: Performed By: #### U CLINT, CMP, LIPID, DBIL, PHOS, MG #### [facility] [address] [place] [address] Dr. Brea Causey LYMPH # 1.0 103/ul Critically low 1.2-3.8 [facility] Comment on above: Performed By: #### U CLINT, CMP, LIPID, DBIL, PHOS, MG #### [facility] [address] [address] [address] Brea Causey Lymphocytes/100 WBC (Bld) 15.2 % Critically low 20.5-60.0 [facility] Comment on above: Performed By: #### U CLINT, CMP, LIPID, DBIL, PHOS, MG #### [facility] [address] [place] [address] Dr. Brea Causey MANUAL DIFF REQ NO Normal [facility] Comment on above: Performed By: #### U CLINT, CMP, LIPID, DBIL, PHOS, MG #### [facility] [address] [place] [address] Dr. Brea Causey MCH (RBC) [Entitic mass] 28.8 pg Normal 25.9-34.0 [facility] Comment on above: Performed By: #### U CLINT, CMP, LIPID, DBIL, PHOS, MG #### [facility] [address] [place] [address] Dr. Brea Causey MCHC (RBC) [Mass/Vol] 33.3 g/dL Normal 29.9-35.2 [facility] Comment on above: Performed By: #### U CLINT, CMP, LIPID, DBIL, PHOS, MG #### [facility] [address] [place] [address] Dr. Brea Causey MCV (RBC) [Entitic vol] 86.5 fL Normal 80.0-94.0 [facility] Comment on above: Performed By: #### U CLINT, CMP, LIPID, DBIL, PHOS, MG #### [facility] [address] [place] [address] Dr. Brea Causey MONO # 0.7 103/ul Normal 0.3-0.8 [facility] Comment on above: Performed By: #### U CLINT, CMP, LIPID, DBIL, PHOS, MG #### [facility] [address] [place] [address] Dr. Brea Causey Monocytes/100 WBC (Bld) 10.0 % Normal 1.7-12.0 [facility] Comment on above: Performed By: #### U CLINT, CMP, LIPID, DBIL, PHOS, MG #### [facility] [address] [place] [address] Dr. Brea Causey NEUT # 4.6 103/ul Normal 1.4-6.5 [facility] Comment on above: Performed By: #### U CLINT, CMP, LIPID, DBIL, PHOS, MG #### [facility] [address] [place] [address] Dr. Brea Causey Neutrophils/100 WBC (Bld) 70.3 % Normal 43.0-75.0 [facility] Comment on above: Performed By: #### U CLINT, CMP, LIPID, DBIL, PHOS, MG #### [facility] [address] [address] [address] Brea Causey Platelet mean volume (Bld) [Entitic vol] 8.8 fL Critically low 9.5-13.5 [facility] Comment on above: Performed By: #### U CLINT, CMP, LIPID, DBIL, PHOS, MG #### [facility] [address] [address] [address] Brea Causey PLT 240 103/ul Normal 150-450 [facility] Comment on above: Performed By: #### U CLINT, CMP, LIPID, DBIL, PHOS, MG #### [facility] [address] [place] [address] Dr. Brea Causey RBC 4.30 106/ul Critically low 4.70-6.10 [facility] Comment on above: Performed By: #### U CLINT, CMP, LIPID, DBIL, PHOS, MG #### [facility] [address] [address] [address] Brea Causey WBC 6.5 103/ul Normal 4.0-11.0 [facility] Comment on above: Performed By: #### U CLINT, CMP, LIPID, DBIL, PHOS, MG #### [facility] [address] [address] [address] Brea Causey LIPID PROFILEon 07-04-2022 CHOL-HDL RATIO NORM SEE BELOW Normal [facility] Comment on above: Result Comment: 3.3 - 4.4 LOW RISK 4.4 - 7.1 AVERAGE RISK 7.1 - 11.0 MODERATE RISK >11.0 HIGH RISK Performed By: #### U CLINT, CMP, LIPID, DBIL, PHOS, MG #### [facility] [address] [address] [address] Brea Causey Cholesterol [Mass/Vol] 86 mg/dL Normal <=200 Th [facility] Comment on above: Performed By: #### U CLINT, CMP, LIPID, DBIL, PHOS, MG #### [facility] [address] [address] [address] Brea Causey Cholesterol in HDL [Mass/Vol] 44 mg/dL Normal 40-60 [facility] Comment on above: Performed By: #### U CLINT, CMP, LIPID, DBIL, PHOS, MG #### [facility] [address] [address] [address] Brea Causey Cholesterol in LDL [Mass/Vol] 28.0 mg/dL Normal [facility] Comment on above: Performed By: #### U CLINT, CMP, LIPID, DBIL, PHOS, MG #### [facility] [address] [place] [address] Dr. Brea Causey Cholesterol.total/Chol esterol in HDL [Mass ratio] 2.0 {ratio} Normal [facility] Comment on above: Performed By: #### U CLINT, CMP, LIPID, DBIL, PHOS, MG #### [facility] [address] [address] [address] Brea Causye HDL NORMAL > or = 60 mg/dl - LO W CARDIOVASCULAR RISK <40 mg/dl - HIGH CARDIOVASCULAR RISK Normal [facility] Comment on above: Performed By: #### U CLINT, CMP, LIPID, DBIL, PHOS, MG #### [facility] [address] [place] [address] Dr. Brea Causey LDL CALC NORMAL SEE BELOW Normal [facility] Comment on above: Result Comment: <100 mg/dl OPTIMAL 100 - 129 mg/dl NEAR OR ABOVE OPTIMAL 130 - 159 mg/dl BORDERLINE HIGH 160 - 189 mg/dl HIGH >190 mg/dl VERY HIGH Performed By: #### U CLINT, CMP, LIPID, DBIL, PHOS, MG #### [facility] [address] [address] [address] Brea Causey Triglyceride [Mass/Vol] 70 mg/dL Normal <=150 [facility] Comment on above: Performed By: #### U CLINT, CMP, LIPID, DBIL, PHOS, MG #### [facility] [address] [place] [address] Dr. Brea Causey VLDL CALC 14.0 mg/dL Normal [facility] Comment on above: Performed By: #### U CLINT, CMP, LIPID, DBIL, PHOS, MG #### [facility] [address] [place] [address] Dr. Brea Causey MAGNESIUMon 07-04-2022 Magnesium [Mass/Vol] 1.4 mg/dL Critically low 1.8-2.4 [facility] Comment on above: Performed By: #### U CLINT, CMP, LIPID, DBIL, PHOS, MG #### [facility] [address] [place] [address] Dr. Brea Causey PHOSPHORUSon 07-04-2022 Phosphate [Mass/Vol] 4.1 mg/dL Normal 2.6-4.7 [facility] Comment on above: Performed By: #### U CLINT, CMP, LIPID, DBIL, PHOS, MG #### [facility] [address] [place] [address] Dr. Brea Causey PROF 14(COMP METB)on 023 Albumin [Mass/Vol] 4.0 g/dL Normal 3.4-5.0 [facility] Comment on above: Performed By: #### B KVIRUS #### [facility] [address] [place] [address] Dr. Brea Causey Albumin/Globulin [Mass ratio] 1.3 {ratio} Normal [facility] Comment on above: Performed By: #### B KVIRUS #### [facility] [address] [place] [address] Dr. Brea Causey ALP [Catalytic activity/Vol] 212 U/L Critically high 46-116 [facility] Comment on above: Performed By: #### B KVIRUS #### [facility] [address] [place] [address] Dr. Brea Causey ALT [Catalytic activity/Vol] 31 U/L Normal 16-63 [facility] Comment on above: Performed By: #### B KVIRUS #### [facility] [address] [place] [address] Dr. Brea Causey Anion gap [Moles/Vol] 11.9 mmol/L Normal [facility] Comment on above: Performed By: #### B KVIRUS #### [facility] [address] [place] [address] Dr. Brea Causey AST [Catalytic activity/Vol] 21 U/L Normal 15-37 [facility] Comment on above: Performed By: #### B KVIRUS #### [facility] [address] [place] [address] Dr. Brea Causey Bilirubin [Mass/Vol] 0.3 mg/dL Normal 0.2-1.0 [facility] Comment on above: Performed By: #### B KVIRUS #### [facility] [address] [place] [address] Dr. Brea Causey Calcium [Mass/Vol] 8.1 mg/dL Critically low 8.5-10.1 [facility] Comment on above: Performed By: #### B KVIRUS #### [facility] [address] [place] [address] Dr. Brea Causey Chloride [Moles/Vol] 97 mmol/L Critically low 98-107 [facility] Comment on above: Performed By: #### B KVIRUS #### [facility] [address] [place] [address] Dr. Brea Causey CO2 [Moles/Vol] 26.8 mmol/L Normal 21.0-32.0 [facility] Comment on above: Performed By: #### B KVIRUS #### [facility] [address] [place] [address] Dr. Brea Causey Creatinine [Mass/Vol] 0.99 mg/dL Normal 0.70-1.30 [facility] Comment on above: Performed By: #### B KVIRUS #### [facility] [address] [place] [address] Dr. Brea Causey EGFR-AF SAMMARINESE >60 Normal >=60 [facility] Comment on above: Performed By: #### B KVIRUS #### [facility] [address] [place] [address] Dr. Brea Causey EGFR-NON AF SAMMARINESE >60 Normal >=60 [facility] Comment on above: Performed By: #### B KVIRUS #### [facility] [address] [place] [address] Dr. Brea Causey Globulin (S) [Mass/Vol] 3.2 g/dL Normal [facility] Comment on above: Performed By: #### B KVIRUS #### [facility] [address] [place] [address] Dr. Brea Causey Glucose [Mass/Vol] 169 mg/dL Critically high 74-106 [facility] Comment on above: Performed By: #### B KVIRUS #### [facility] [address] [place] [address] Dr. Brea Causey Potassium [Moles/Vol] 4.7 mmol/L Normal 3.5-5.1 [facility] Comment on above: Performed By: #### B KVIRUS #### [facility] [address] [place] [address] Dr. Brea Causey Protein [Mass/Vol] 7.2 g/dL Normal 6.4-8.2 [facility] Comment on above: Performed By: #### B KVIRUS #### [facility] [address] [place] [address] Dr. Brea Causey Sodium [Moles/Vol] 131 mmol/L Critically low 136-145 [facility] Comment on above: Performed By: #### B KVIRUS #### [facility] [address] [place] [address] Dr. Brea Causey Urea nitrogen [Mass/Vol] 9.0 mg/dL Normal 7.0-18.0 [facility] Comment on above: Performed By: #### B KVIRUS #### [facility] [address] [place] [address] Dr. Brea Causey Urea nitrogen/Creatinine [Mass ratio] 9.1 mg/mg Normal [facility] Comment on above: Performed By: #### B KVIRUS #### [facility] [address] [place] [address] Dr. Brea Causey URIC ACID SERUMon 07-04-2022 Urate [Mass/Vol] 6.1 mg/dL Normal 3.5-7.2 [facility] Comment on above: Performed By: #### U CLINT, CMP, LIPID, DBIL, PHOS, MG #### [facility] [address] [address] [address] Brea Causey TESTOSTERONE, FREE,DIRECT, T OTALon 05-28-2022 Free Testosterone(Direct) 5.9 pg/mL Critically low 6.6-18.1 [facility] Comment on above: Result Comment: Perf ormed at: BN Performed By: #### U CLINT, CMP, LIPID, DBIL, PHOS, MG #### [facility] [address] [address] [address] Brea Causey Testosterone [Mass/Vol] 513 ng/dL Normal 264-916 [facility] Comment on above: Result Comment: Adul t male reference interval is based on a population of healthy nonobese males (BMI <30) between 19 and 39 years old. Steven et.al. JCEM 2017,102;6225-0847. PMID: [id number]. Performed at: CB Performed By: #### U CLINT, CMP, LIPID, DBIL, PHOS, MG #### [facility] [address] [place] [address] Dr. Brea Causey FK506 (TACROLIMUS) WHOLE BLO ODon 05-26-2022 Tacrolimus (FK506), Blood 3.9 ng/mL Normal 2.0-20.0 [facility] Comment on above: Result Comment: Trou gh (immediately following transplant) 15.0 . Trough (steady state, 2 weeks or more after transplant): 3.0 - 8.0 . Performed by LC-MS/MS technology. Performed By: #### B KVIRUS #### [facility] [id number] Brea Causey BK VIRUS PCR QUANTon 023 BKV DNA QUANT PCR PLASMA Negative Normal Negative [facility] Comment on above: Result Comment: No B K DNA detected. . The linear range of the assay is 22 - 100,000,000 IU/mL. Performed By: #### U CLINT, CMP, LIPID, DBIL, PHOS, MG #### [facility] [address] [address] [address] Brea Causey Log10 BKV DNA Plasma Normal [facility] Comment on above: Performed By: #### U CLINT, CMP, LIPID, DBIL, PHOS, MG #### [facility] [address] [place] [address] Dr. Brea Causey BILIRUBIN CONJUGATED (DIRECT )on 05-23-2022 BILI, CONJUGATED 0.2 mg/dL Normal 0.0-0.2 [facility] Comment on above: Performed By: #### C BC #### [facility] [address] [place] [address] Dr. Brea Causey CBC AUTO DIFFon 05-23-2022 BASO # 0.0 103/ul Normal 0.0-0.1 [facility] Comment on above: Performed By: #### B KVIRUS #### [facility] [address] [place] [address] Dr. Brea Causey Basophils/100 WBC (Bld) 0.6 % Normal 0.2-2.0 [facility] Comment on above: Performed By: #### B KVIRUS #### [facility] [address] [place] [address] Dr. Brea Causey EO # 0.1 103/ul Normal 0.0-0.7 [facility] Comment on above: Performed By: #### B KVIRUS #### [facility] [address] [place] [address] Dr. Brea Causey Eosinophils/100 WBC (Bld) 1.7 % Normal 0.9-7.0 [facility] Comment on above: Performed By: #### B KVIRUS #### [facility] [address] [place] [address] Dr. Brea Causey Erythrocyte distribution width (RBC) [Ratio] 13.4 % Normal 11.0-15.0 [facility] Comment on above: Performed By: #### B KVIRUS #### [facility] [address] [place] [address] Dr. Brea Causey Hematocrit (Bld) [Volume fraction] 38.8 % Critically low 42.0-54.0 [facility] Comment on above: Performed By: #### B KVIRUS #### [facility] [address] [place] [address] Dr. Brea Causey Hemoglobin (Bld) [Mass/Vol] 12.4 g/dL Critically low 14.0-18.0 [facility] Comment on above: Performed By: #### B KVIRUS #### [facility] [address] [place] [address] Dr. Brea Causey IG # 0.07 10e3/ul Critically high 0.00-0.03 [facility] Comment on above: Performed By: #### B KVIRUS #### [facility] [address] [place] [address] Dr. Brea Causey IG % 1.1 % Critically high 0.0-0.5 [facility] Comment on above: Performed By: #### B KVIRUS #### [facility] [address] [place] [address] Dr. Brea Causey LYMPH # 0.9 103/ul Critically low 1.2-3.8 [facility] Comment on above: Performed By: #### B KVIRUS #### [facility] [address] [place] [address] Dr. Brea Causey Lymphocytes/100 WBC (Bld) 14.1 % Critically low 20.5-60.0 [facility] Comment on above: Performed By: #### B KVIRUS #### [facility] [address] [place] [address] Dr. Brea Causey MANUAL DIFF REQ NO Normal [facility] Comment on above: Performed By: #### B KVIRUS #### [facility] [address] [place] [address] Dr. Brea Causey MCH (RBC) [Entitic mass] 29.3 pg Normal 25.9-34.0 [facility] Comment on above: Performed By: #### B KVIRUS #### [facility] [address] [place] [address] Dr. Brea Causey MCHC (RBC) [Mass/Vol] 32.0 g/dL Normal 29.9-35.2 [facility] Comment on above: Performed By: #### B KVIRUS #### [facility] [address] [place] [address] Dr. Brea Causey MCV (RBC) [Entitic vol] 91.7 fL Normal 80.0-94.0 [facility] Comment on above: Performed By: #### B KVIRUS #### [facility] [address] [place] [address] Dr. Brea Causey MONO # 0.7 103/ul Normal 0.3-0.8 [facility] Comment on above: Performed By: #### B KVIRUS #### [facility] [address] [place] [address] Dr. Brea Causey Monocytes/100 WBC (Bld) 10.0 % Normal 1.7-12.0 [facility] Comment on above: Performed By: #### B KVIRUS #### [facility] [address] [place] [address] Dr. Brea Causey NEUT # 4.7 103/ul Normal 1.4-6.5 [facility] Comment on above: Performed By: #### B KVIRUS #### [facility] [address] [place] [address] Dr. Brea Causey Neutrophils/100 WBC (Bld) 72.5 % Normal 43.0-75.0 [facility] Comment on above: Performed By: #### B KVIRUS #### [facility] [address] [place] [address] Dr. Brea Causey Platelet mean volume (Bld) [Entitic vol] 9.4 fL Critically low 9.5-13.5 [facility] Comment on above: Performed By: #### B KVIRUS #### [facility] [address] [place] [address] Dr. Brea Causey PLT 256 103/ul Normal 150-450 [facility] Comment on above: Performed By: #### B KVIRUS #### [facility] [address] [place] [address] Dr. Brea Causey RBC 4.23 106/ul Critically low 4.70-6.10 [facility] Comment on above: Performed By: #### B KVIRUS #### [facility] [address] [address] [address] Brea Causey WBC 6.5 103/ul Normal 4.0-11.0 [facility] Comment on above: Performed By: #### B KVIRUS #### [facility] [address] [address] [address] Brea Causey GLYCOHEMOGLOBIN A1Con 2022 ADA RECOMMENDATION SEE BELOW Normal [facility] Comment on above: Result Comment: ADA RECOMMENDED LIMIT 4.0 - 6.0 ADA THERAPEUTIC TARGET < 7.0 ACTION SUGGESTED > 7.0 Performed By: #### U CLINT, CMP, LIPID, DBIL, PHOS, MG #### [facility] [address] [address] [address] Brea Causey Glucose [Mass/Vol] 160 mg/dL Normal [facility] Comment on above: Performed By: #### U CLINT, CMP, LIPID, DBIL, PHOS, MG #### [facility] [address] [address] [address] Brea Causey HbA1c (Bld) [Mass fraction] 7.2 % Critically high 4.5-6.2 [facility] Comment on above: Performed By: #### U CLINT, CMP, LIPID, DBIL, PHOS, MG #### [facility] [address] [address] [address] Brea Causey LIPID PROFILEon 05-23-2022 CHOL-HDL RATIO NORM SEE BELOW Normal [facility] Comment on above: Result Comment: 3.3 - 4.4 LOW RISK 4.4 - 7.1 AVERAGE RISK 7.1 - 11.0 MODERATE RISK >11.0 HIGH RISK Performed By: #### C BC #### [facility] [address] [place] [address] Dr. Brea Causey Cholesterol [Mass/Vol] 87 mg/dL Normal <=200 Th [facility] Comment on above: Performed By: #### C BC #### [facility] [address] [place] [address] Dr. Brea Causey Cholesterol in HDL [Mass/Vol] 54 mg/dL Normal 40-60 [facility] Comment on above: Performed By: #### C BC #### [facility] [address] [address] [address] Brea Causey Cholesterol in LDL [Mass/Vol] 24.6 mg/dL Normal [facility] Comment on above: Performed By: #### C BC #### [facility] [address] [address] [address] Brea Causey Cholesterol.total/Chol esterol in HDL [Mass ratio] 1.6 {ratio} Normal [facility] Comment on above: Performed By: #### C BC #### [facility] [address] [place] [address] Dr. Brea Causey HDL NORMAL > or = 60 mg/dl - LO W CARDIOVASCULAR RISK <40 mg/dl - HIGH CARDIOVASCULAR RISK Normal [facility] Comment on above: Performed By: #### C BC #### [facility] [address] [place] [address] Dr. Brea Causey LDL CALC NORMAL SEE BELOW Normal [facility] Comment on above: Result Comment: <100 mg/dl OPTIMAL 100 - 129 mg/dl NEAR OR ABOVE OPTIMAL 130 - 159 mg/dl BORDERLINE HIGH 160 - 189 mg/dl HIGH >190 mg/dl VERY HIGH Performed By: #### C BC #### [facility] [address] [place] [address] Dr. Brea Causey Triglyceride [Mass/Vol] 42 mg/dL Normal <=150 [facility] Comment on above: Performed By: #### C BC #### [facility] [address] [place] [address] Dr. Brea Causey VLDL CALC 8.4 mg/dL Normal [facility] Comment on above: Performed By: #### C BC #### [facility] [address] [place] [address] Dr. Brea Causey MAGNESIUMon 05-23-2022 Magnesium [Mass/Vol] 1.4 mg/dL Critically low 1.8-2.4 [facility] Comment on above: Performed By: #### C BC #### [facility] [address] [place] [address] Dr. Brea Causey PHOSPHORUSon 05-23-2022 Phosphate [Mass/Vol] 3.6 mg/dL Normal 2.6-4.7 [facility] Comment on above: Performed By: #### C BC #### [facility] [address] [place] [address] Dr. Brea Causey PROF 14(COMP METB)on 023 Albumin [Mass/Vol] 3.9 g/dL Normal 3.4-5.0 [facility] Comment on above: Performed By: #### C BC #### [facility] [address] [place] [address] Dr. Brea Causey Albumin/Globulin [Mass ratio] 1.2 {ratio} Normal [facility] Comment on above: Performed By: #### C BC #### [facility] [address] [place] [address] Dr. Brea Causey ALP [Catalytic activity/Vol] 190 U/L Critically high 46-116 [facility] Comment on above: Performed By: #### C BC #### [facility] [address] [place] [address] Dr. Brea Causey ALT [Catalytic activity/Vol] 26 U/L Normal 16-63 [facility] Comment on above: Performed By: #### C BC #### [facility] [address] [place] [address] Dr. Brea Causey Anion gap [Moles/Vol] 13.1 mmol/L Normal [facility] Comment on above: Performed By: #### C BC #### [facility] [address] [place] [address] Dr. Brea Causey AST [Catalytic activity/Vol] 18 U/L Normal 15-37 [facility] Comment on above: Performed By: #### C BC #### [facility] [address] [place] [address] Dr. Brea Causey Bilirubin [Mass/Vol] 0.4 mg/dL Normal 0.2-1.0 [facility] Comment on above: Performed By: #### C BC #### [facility] [address] [place] [address] Dr. Brea Causey Calcium [Mass/Vol] 7.8 mg/dL Critically low 8.5-10.1 [facility] Comment on above: Performed By: #### C BC #### [facility] [address] [place] [address] Dr. Brea Causey Chloride [Moles/Vol] 95 mmol/L Critically low 98-107 [facility] Comment on above: Performed By: #### C BC #### [facility] [address] [place] [address] Dr. Brea Causey CO2 [Moles/Vol] 28.8 mmol/L Normal 21.0-32.0 [facility] Comment on above: Performed By: #### C BC #### [facility] [address] [place] [address] Dr. Brea Causey Creatinine [Mass/Vol] 1.03 mg/dL Normal 0.70-1.30 [facility] Comment on above: Performed By: #### C BC #### [facility] [address] [place] [address] Dr. Brea Causey EGFR-AF SAMMARINESE >60 Normal >=60 [facility] Comment on above: Performed By: #### C BC #### [facility] [address] [place] [address] Dr. Brea Causey EGFR-NON AF SAMMARINESE >60 Normal >=60 [facility] Comment on above: Performed By: #### C BC #### [facility] [address] [place] [address] Dr. Brea Causey Globulin (S) [Mass/Vol] 3.2 g/dL Normal [facility] Comment on above: Performed By: #### C BC #### [facility] [address] [place] [address] Dr. Brea Causey Glucose [Mass/Vol] 155 mg/dL Critically high 74-106 [facility] Comment on above: Performed By: #### C BC #### [facility] [address] [place] [address] Dr. Brea Causey Potassium [Moles/Vol] 4.9 mmol/L Normal 3.5-5.1 [facility] Comment on above: Performed By: #### C BC #### [facility] [address] [address] [address] Brea Causey Protein [Mass/Vol] 7.1 g/dL Normal 6.4-8.2 [facility] Comment on above: Performed By: #### C BC #### [facility] [address] [address] [address] Brea Causey Sodium [Moles/Vol] 132 mmol/L Critically low 136-145 Th [facility] Comment on above: Performed By: #### C BC #### [facility] [address] [place] [address] Dr. Brea Causey Urea nitrogen [Mass/Vol] 8.0 mg/dL Normal 7.0-18.0 [facility] Comment on above: Performed By: #### C BC #### [facility] [address] [place] [address] Dr. Brea Causey Urea nitrogen/Creatinine [Mass ratio] 7.8 mg/mg Normal [facility] Comment on above: Performed By: #### C BC #### [facility] [address] [place] [address] Dr. Brea Causey URIC ACID SERUMon 05-23-2022 Urate [Mass/Vol] 5.6 mg/dL Normal 3.5-7.2 [facility] Comment on above: Performed By: #### C BC #### [facility] [address] [place] [address] Dr. Brea Causey TESTOSTERONE, FREE,DIRECT, T OTALon 05-03-2022 Free Testosterone(Direct) 7.4 pg/mL Normal 6.6-18.1 [facility] Comment on above: Result Comment: Perf ormed at: BN Performed By: #### U CLINT, CMP, LIPID, DBIL, PHOS, MG #### [facility] [address] [address] [address] Brea Causey Testosterone [Mass/Vol] 494 ng/dL Normal 264-916 [facility] Comment on above: Result Comment: Adul t male reference interval is based on a population of healthy nonobese males (BMI <30) between 19 and 39 years old. daniel Harris.al. JCEM 2017,102;4935-5660. PMID: [id number]. Performed at: CB Performed By: #### U CLINT, CMP, LIPID, DBIL, PHOS, MG #### [facility] [address] [address] [address] Brea Causey FK506 (TACROLIMUS) WHOLE BLO ODon 05-02-2022 Tacrolimus (FK506), Blood 4.3 ng/mL Normal 2.0-20.0 [facility] Comment on above: Result Comment: Trou gh (immediately following transplant) 15.0 . Trough (steady state, 2 weeks or more after transplant): 3.0 - 8.0 . Performed by LC-MS/MS technology. Performed By: #### C BC #### [facility] [address] [place] [address] Dr. Brea Causey BILIRUBIN CONJUGATED (DIRECT )on 04-30-2022 BILI, CONJUGATED 0.1 mg/dL Normal 0.0-0.2 [facility] Comment on above: Performed By: #### U CLINT, CMP, LIPID, DBIL, PHOS, MG #### [facility] [address] [place] [address] Dr. Brea Causey CBC AUTO DIFFon 04-30-2022 BASO # 0.0 103/ul Normal 0.0-0.1 [facility] [facility] Comment on above: Performed By: #### U CLINT, CMP, LIPID, DBIL, PHOS, MG #### [facility] [address] [address] [address] Brea Causey Basophils/100 WBC (Bld) 0.5 % Normal 0.2-2.0 [facility] Comment on above: Performed By: #### U CLINT, CMP, LIPID, DBIL, PHOS, MG #### [facility] [address] [address] [address] Brea Causey EO # 0.1 103/ul Normal 0.0-0.7 [facility] Comment on above: Performed By: #### U CLINT, CMP, LIPID, DBIL, PHOS, MG #### [facility] [address] [place] [address] Dr. Brea Causey Eosinophils/100 WBC (Bld) 2.1 % Normal 0.9-7.0 [facility] Comment on above: Performed By: #### U CLINT, CMP, LIPID, DBIL, PHOS, MG #### [facility] [address] [place] [address] Dr. Brea Causey Erythrocyte distribution width (RBC) [Ratio] 13.2 % Normal 11.0-15.0 [facility] Comment on above: Performed By: #### U CLINT, CMP, LIPID, DBIL, PHOS, MG #### [facility] [address] [place] [address] Dr. Brea Causey Hematocrit (Bld) [Volume fraction] 37.0 % Critically low 42.0-54.0 [facility] Comment on above: Performed By: #### U CLINT, CMP, LIPID, DBIL, PHOS, MG #### [facility] [address] [place] [address] Dr. Brea Causey Hemoglobin (Bld) [Mass/Vol] 12.4 g/dL Critically low 14.0-18.0 [facility] Comment on above: Performed By: #### U CLINT, CMP, LIPID, DBIL, PHOS, MG #### [facility] [address] [place] [address] Dr. Brea Causey IG # 0.05 10e3/ul Critically high 0.00-0.03 [facility] Comment on above: Performed By: #### U CLINT, CMP, LIPID, DBIL, PHOS, MG #### [facility] [address] [place] [address] Dr. Brea Causey IG % 0.9 % Critically high 0.0-0.5 [facility] Comment on above: Performed By: #### U CLINT, CMP, LIPID, DBIL, PHOS, MG #### [facility] [address] [place] [address] Dr. Brea Causey LYMPH # 1.0 103/ul Critically low 1.2-3.8 [facility] Comment on above: Performed By: #### U CLINT, CMP, LIPID, DBIL, PHOS, MG #### [facility] [address] [address] [address] Brea Causey Lymphocytes/100 WBC (Bld) 16.4 % Critically low 20.5-60.0 [facility] Comment on above: Performed By: #### U CLINT, CMP, LIPID, DBIL, PHOS, MG #### [facility] [address] [address] [address] Brea Causey MANUAL DIFF REQ NO Normal [facility] Comment on above: Performed By: #### U CLINT, CMP, LIPID, DBIL, PHOS, MG #### [facility] [address] [place] [address] Dr. Brea Causey MCH (RBC) [Entitic mass] 29.0 pg Normal 25.9-34.0 [facility] Comment on above: Performed By: #### U CLINT, CMP, LIPID, DBIL, PHOS, MG #### [facility] [address] [address] [address] Brea Causey MCHC (RBC) [Mass/Vol] 33.5 g/dL Normal 29.9-35.2 [facility] Comment on above: Performed By: #### U CLINT, CMP, LIPID, DBIL, PHOS, MG #### [facility] [address] [address] [address] Brea Causey MCV (RBC) [Entitic vol] 86.7 fL Normal 80.0-94.0 [facility] Comment on above: Performed By: #### U CLINT, CMP, LIPID, DBIL, PHOS, MG #### [facility] [address] [place] [address] Dr. Brea Causey MONO # 0.7 103/ul Normal 0.3-0.8 [facility] Comment on above: Performed By: #### U CLINT, CMP, LIPID, DBIL, PHOS, MG #### [facility] [address] [place] [address] Dr. Brea Causey Monocytes/100 WBC (Bld) 11.6 % Normal 1.7-12.0 [facility] Comment on above: Performed By: #### U CLINT, CMP, LIPID, DBIL, PHOS, MG #### [facility] [address] [place] [address] Dr. Brea Causey NEUT # 4.0 103/ul Normal 1.4-6.5 [facility] Comment on above: Performed By: #### U CLINT, CMP, LIPID, DBIL, PHOS, MG #### [facility] [address] [place] [address] Dr. Brea Causey Neutrophils/100 WBC (Bld) 68.5 % Normal 43.0-75.0 [facility] Comment on above: Performed By: #### U CLINT, CMP, LIPID, DBIL, PHOS, MG #### [facility] [address] [place] [address] Dr. Brea Causey Platelet mean volume (Bld) [Entitic vol] 9.2 fL Critically low 9.5-13.5 [facility] Comment on above: Performed By: #### U CLINT, CMP, LIPID, DBIL, PHOS, MG #### [facility] [address] [place] [address] Dr. Brea Causey PLT 231 103/ul Normal 150-450 [facility] Comment on above: Performed By: #### U CLINT, CMP, LIPID, DBIL, PHOS, MG #### [facility] [address] [place] [address] Dr. Brea Causey RBC 4.27 106/ul Critically low 4.70-6.10 [facility] Comment on above: Performed By: #### U CLINT, CMP, LIPID, DBIL, PHOS, MG #### [facility] [address] [place] [address] Dr. Brea Causey WBC 5.9 103/ul Normal 4.0-11.0 [facility] Comment on above: Performed By: #### U CLINT, CMP, LIPID, DBIL, PHOS, MG #### [facility] [address] [address] [address] Brea Causey LIPID PROFILEon 04-30-2022 CHOL-HDL RATIO NORM SEE BELOW Normal [facility] Comment on above: Result Comment: 3.3 - 4.4 LOW RISK 4.4 - 7.1 AVERAGE RISK 7.1 - 11.0 MODERATE RISK >11.0 HIGH RISK Performed By: #### U CLINT, CMP, LIPID, DBIL, PHOS, MG #### [facility] [address] [address] [address] Brea Causey Cholesterol [Mass/Vol] 78 mg/dL Normal <=200 Th [facility] Comment on above: Performed By: #### U CLINT, CMP, LIPID, DBIL, PHOS, MG #### [facility] [address] [address] [address] Brea Causey Cholesterol in HDL [Mass/Vol] 41 mg/dL Normal 40-60 [facility] Comment on above: Performed By: #### U CLINT, CMP, LIPID, DBIL, PHOS, MG #### [facility] [address] [address] [address] Brea Causey Cholesterol in LDL [Mass/Vol] 17.8 mg/dL Normal [facility] Comment on above: Performed By: #### U CLINT, CMP, LIPID, DBIL, PHOS, MG #### [facility] [address] [address] [address] Brea Causey Cholesterol.total/Chol esterol in HDL [Mass ratio] 1.9 {ratio} Normal [facility] Comment on above: Performed By: #### U CLINT, CMP, LIPID, DBIL, PHOS, MG #### [facility] [address] [address] [address] Brea Causey HDL NORMAL > or = 60 mg/dl - LO W CARDIOVASCULAR RISK <40 mg/dl - HIGH CARDIOVASCULAR RISK Normal [facility] Comment on above: Performed By: #### U CLINT, CMP, LIPID, DBIL, PHOS, MG #### [facility] [address] [address] [address] Brea Causey LDL CALC NORMAL SEE BELOW Normal [facility] Comment on above: Result Comment: <100 mg/dl OPTIMAL 100 - 129 mg/dl NEAR OR ABOVE OPTIMAL 130 - 159 mg/dl BORDERLINE HIGH 160 - 189 mg/dl HIGH >190 mg/dl VERY HIGH Performed By: #### U CLINT, CMP, LIPID, DBIL, PHOS, MG #### [facility] [address] [address] [address] Brea Causey Triglyceride [Mass/Vol] 96 mg/dL Normal <=150 [facility] Comment on above: Performed By: #### U CLINT, CMP, LIPID, DBIL, PHOS, MG #### [facility] [address] [address] [address] Brea Causey VLDL CALC 19.2 mg/dL Normal [facility] Comment on above: Performed By: #### U CLINT, CMP, LIPID, DBIL, PHOS, MG #### [facility] [address] [address] [address] Brea Causey MAGNESIUMon 04-30-2022 Magnesium [Mass/Vol] 1.7 mg/dL Critically low 1.8-2.4 [facility] Comment on above: Performed By: #### U CLINT, CMP, LIPID, DBIL, PHOS, MG #### [facility] [address] [address] [address] Brea Causey PHOSPHORUSon 04-30-2022 Phosphate [Mass/Vol] 3.6 mg/dL Normal 2.6-4.7 [facility] Comment on above: Performed By: #### U CLINT, CMP, LIPID, DBIL, PHOS, MG #### [facility] [address] [address] [address] Brea Causey PROF 14(COMP METB)on 022 Albumin [Mass/Vol] 4.0 g/dL Normal 3.4-5.0 [facility] Comment on above: Performed By: #### U CLINT, CMP, LIPID, DBIL, PHOS, MG #### [facility] [address] [address] [address] Brea Causey Albumin/Globulin [Mass ratio] 1.3 {ratio} Normal [facility] Comment on above: Performed By: #### U CLINT, CMP, LIPID, DBIL, PHOS, MG #### [facility] [address] [place] [address] Dr. Brea Causey ALP [Catalytic activity/Vol] 196 U/L Critically high 46-116 [facility] Comment on above: Performed By: #### U CLINT, CMP, LIPID, DBIL, PHOS, MG #### [facility] [address] [address] [address] Brea Causey ALT [Catalytic activity/Vol] 21 U/L Normal 16-63 [facility] Comment on above: Performed By: #### U CLINT, CMP, LIPID, DBIL, PHOS, MG #### [facility] [address] [place] [address] Dr. Brea Causey Anion gap [Moles/Vol] 10.5 mmol/L Normal [facility] Comment on above: Performed By: #### U CLINT, CMP, LIPID, DBIL, PHOS, MG #### [facility] [address] [place] [address] Dr. Brea Causey AST [Catalytic activity/Vol] 16 U/L Normal 15-37 [facility] Comment on above: Performed By: #### U CLINT, CMP, LIPID, DBIL, PHOS, MG #### [facility] [address] [place] [address] Dr. Brea Causey Bilirubin [Mass/Vol] 0.3 mg/dL Normal 0.2-1.0 [facility] Comment on above: Performed By: #### U CLINT, CMP, LIPID, DBIL, PHOS, MG #### [facility] [address] [address] [address] Brea Causey Calcium [Mass/Vol] 8.6 mg/dL Normal 8.5-10.1 [facility] Comment on above: Performed By: #### U CLINT, CMP, LIPID, DBIL, PHOS, MG #### [facility] [address] [place] [address] Dr. Brea Causey Chloride [Moles/Vol] 95 mmol/L Critically low 98-107 [facility] Comment on above: Performed By: #### U CLINT, CMP, LIPID, DBIL, PHOS, MG #### [facility] [address] [address] [address] Brea Causey CO2 [Moles/Vol] 30.9 mmol/L Normal 21.0-32.0 [facility] Comment on above: Performed By: #### U CLINT, CMP, LIPID, DBIL, PHOS, MG #### [facility] [address] [address] [address] Brea Causey Creatinine [Mass/Vol] 1.00 mg/dL Normal 0.70-1.30 [facility] Comment on above: Performed By: #### U CLINT, CMP, LIPID, DBIL, PHOS, MG #### [facility] [address] [place] [address] Dr. Brea Causey EGFR-AF SAMMARINESE >60 Normal >=60 [facility] Comment on above: Performed By: #### U CLINT, CMP, LIPID, DBIL, PHOS, MG #### [facility] [address] [place] [address] Dr. Brea Causey EGFR-NON AF SAMMARINESE >60 Normal >=60 [facility] Comment on above: Performed By: #### U CLINT, CMP, LIPID, DBIL, PHOS, MG #### [facility] [address] [address] [address] Brea Causey Globulin (S) [Mass/Vol] 3.2 g/dL Normal [facility] Comment on above: Performed By: #### U CLINT, CMP, LIPID, DBIL, PHOS, MG #### [facility] [address] [address] [address] Brea Causey Glucose [Mass/Vol] 160 mg/dL Critically high 74-106 [facility] Comment on above: Performed By: #### U CLINT, CMP, LIPID, DBIL, PHOS, MG #### [facility] [address] [address] [address] Brea Causey Potassium [Moles/Vol] 5.4 mmol/L Critically high 3.5-5.1 [facility] Comment on above: Performed By: #### U CLINT, CMP, LIPID, DBIL, PHOS, MG #### [facility] [address] [address] [address] Brea Causey Protein [Mass/Vol] 7.2 g/dL Normal 6.4-8.2 [facility] Comment on above: Performed By: #### U CLINT, CMP, LIPID, DBIL, PHOS, MG #### [facility] [address] [address] [address] Brea Causey Sodium [Moles/Vol] 131 mmol/L Critically low 136-145 Th [facility] Comment on above: Performed By: #### U CLINT, CMP, LIPID, DBIL, PHOS, MG #### [facility] [address] [place] [address] Dr. Brea Causey Urea nitrogen [Mass/Vol] 11.0 mg/dL Normal 7.0-18.0 [facility] Comment on above: Performed By: #### U CLINT, CMP, LIPID, DBIL, PHOS, MG #### [facility] [address] [address] [address] Brea Causey Urea nitrogen/Creatinine [Mass ratio] 11.0 mg/mg Normal [facility] Comment on above: Performed By: #### U CLINT, CMP, LIPID, DBIL, PHOS, MG #### [facility] [address] [place] [address] Dr. Brea Causey URIC ACID SERUMon 04-30-2022 Urate [Mass/Vol] 5.9 mg/dL Normal 3.5-7.2 [facility] Comment on above: Performed By: #### U CLINT, CMP, LIPID, DBIL, PHOS, MG #### [facility] [address] [place] [address] Dr. Brea Causey FK506 (TACROLIMUS) WHOLE BLO ODon 04-06-2022 Tacrolimus (FK506), Blood 3.0 ng/mL Normal 2.0-20.0 [facility] Comment on above: Result Comment: Trou gh (immediately following transplant) 15.0 . Trough (steady state, 2 weeks or more after transplant): 3.0 - 8.0 . Performed by LC-MS/MS technology. Performed By: #### U CLINT, CMP, LIPID, DBIL, PHOS, MG #### [facility] [address] [place] [address] Dr. Brea Causey BILIRUBIN CONJUGATED (DIRECT )on 04-03-2022 BILI, CONJUGATED 0.1 mg/dL Normal 0.0-0.2 [facility] Comment on above: Performed By: #### U CLINT, CMP, LIPID, DBIL, PHOS, MG #### [facility] [address] [place] [address] Dr. Brea Causey CBC AUTO DIFFon 04-03-2022 BASO # 0.0 103/ul Normal 0.0-0.1 [facility] Comment on above: Performed By: #### U CLINT, CMP, LIPID, DBIL, PHOS, MG #### [facility] [address] [place] [address] Dr. Brea Causey Basophils/100 WBC (Bld) 0.5 % Normal 0.2-2.0 [facility] Comment on above: Performed By: #### U CLINT, CMP, LIPID, DBIL, PHOS, MG #### [facility] [address] [place] [address] Dr. Brea Causey EO # 0.1 103/ul Normal 0.0-0.7 [facility] Comment on above: Performed By: #### U CLINT, CMP, LIPID, DBIL, PHOS, MG #### [facility] [address] [place] [address] Dr. Brea Causey Eosinophils/100 WBC (Bld) 2.5 % Normal 0.9-7.0 [facility] Comment on above: Performed By: #### U CLINT, CMP, LIPID, DBIL, PHOS, MG #### [facility] [address] [place] [address] Dr. Brea Causey Erythrocyte distribution width (RBC) [Ratio] 13.3 % Normal 11.0-15.0 [facility] Comment on above: Performed By: #### U CLINT, CMP, LIPID, DBIL, PHOS, MG #### [facility] [address] [address] [address] Brea Causey Hematocrit (Bld) [Volume fraction] 36.4 % Critically low 42.0-54.0 [facility] Comment on above: Performed By: #### U CLINT, CMP, LIPID, DBIL, PHOS, MG #### [facility] [address] [place] [address] Dr. Brea Causey Hemoglobin (Bld) [Mass/Vol] 12.3 g/dL Critically low 14.0-18.0 [facility] Comment on above: Performed By: #### U CLINT, CMP, LIPID, DBIL, PHOS, MG #### [facility] [address] [place] [address] Dr. Brea Causey IG # 0.03 10e3/ul Normal 0.00-0.03 [facility] Comment on above: Performed By: #### U CLINT, CMP, LIPID, DBIL, PHOS, MG #### [facility] [address] [place] [address] Dr. Brea Causey IG % 0.5 % Normal 0.0-0.5 [facility] Comment on above: Performed By: #### U CLINT, CMP, LIPID, DBIL, PHOS, MG #### [facility] [address] [place] [address] Dr. Brea Causey LYMPH # 0.9 103/ul Critically low 1.2-3.8 [facility] Comment on above: Performed By: #### U CLINT, CMP, LIPID, DBIL, PHOS, MG #### [facility] [address] [place] [address] Dr. Brea Causey Lymphocytes/100 WBC (Bld) 16.9 % Critically low 20.5-60.0 [facility] Comment on above: Performed By: #### U CLINT, CMP, LIPID, DBIL, PHOS, MG #### [facility] [address] [place] [address] Dr. Brea Causey MANUAL DIFF REQ NO Normal [facility] Comment on above: Performed By: #### U CLINT, CMP, LIPID, DBIL, PHOS, MG #### [facility] [address] [place] [address] Dr. Brea Causey MCH (RBC) [Entitic mass] 29.3 pg Normal 25.9-34.0 [facility] Comment on above: Performed By: #### U CLINT, CMP, LIPID, DBIL, PHOS, MG #### [facility] [address] [place] [address] Dr. Brea Causey MCHC (RBC) [Mass/Vol] 33.8 g/dL Normal 29.9-35.2 [facility] Comment on above: Performed By: #### U CLINT, CMP, LIPID, DBIL, PHOS, MG #### [facility] [address] [place] [address] Dr. Brea Causey MCV (RBC) [Entitic vol] 86.7 fL Normal 80.0-94.0 [facility] Comment on above: Performed By: #### U CLINT, CMP, LIPID, DBIL, PHOS, MG #### [facility] [address] [place] [address] Dr. Brea Causey MONO # 0.6 103/ul Normal 0.3-0.8 [facility] Comment on above: Performed By: #### U CLINT, CMP, LIPID, DBIL, PHOS, MG #### [facility] [address] [place] [address] Dr. Brea Causey Monocytes/100 WBC (Bld) 10.1 % Normal 1.7-12.0 [facility] Comment on above: Performed By: #### U CLINT, CMP, LIPID, DBIL, PHOS, MG #### [facility] [address] [place] [address] Dr. Brea Causey NEUT # 3.9 103/ul Normal 1.4-6.5 [facility] Comment on above: Performed By: #### U CLINT, CMP, LIPID, DBIL, PHOS, MG #### [facility] [address] [place] [address] Dr. Brea Causey Neutrophils/100 WBC (Bld) 69.5 % Normal 43.0-75.0 [facility] Comment on above: Performed By: #### U CLINT, CMP, LIPID, DBIL, PHOS, MG #### [facility] [address] [address] [address] Brea Causey Platelet mean volume (Bld) [Entitic vol] 9.2 fL Critically low 9.5-13.5 [facility] Comment on above: Performed By: #### U CLINT, CMP, LIPID, DBIL, PHOS, MG #### [facility] [address] [address] [address] Brea Causey PLT 228 103/ul Normal 150-450 [facility] Comment on above: Performed By: #### U CLINT, CMP, LIPID, DBIL, PHOS, MG #### [facility] [address] [place] [address] Dr. Brea Causey RBC 4.20 106/ul Critically low 4.70-6.10 [facility] Comment on above: Performed By: #### U CLINT, CMP, LIPID, DBIL, PHOS, MG #### [facility] [address] [address] [address] Brea Causey WBC 5.6 103/ul Normal 4.0-11.0 [facility] Comment on above: Performed By: #### U CLINT, CMP, LIPID, DBIL, PHOS, MG #### [facility] [address] [address] [address] Brea Causey LIPID PROFILEon 04-03-2022 CHOL-HDL RATIO NORM SEE BELOW Normal [facility] Comment on above: Result Comment: 3.3 - 4.4 LOW RISK 4.4 - 7.1 AVERAGE RISK 7.1 - 11.0 MODERATE RISK >11.0 HIGH RISK Performed By: #### U CLINT, CMP, LIPID, DBIL, PHOS, MG #### [facility] [address] [address] [address] Brea Causey Cholesterol [Mass/Vol] 84 mg/dL Normal <=200 Th [facility] Comment on above: Performed By: #### U CLINT, CMP, LIPID, DBIL, PHOS, MG #### [facility] [address] [address] [address] Brea Causey Cholesterol in HDL [Mass/Vol] 45 mg/dL Normal 40-60 [facility] Comment on above: Performed By: #### U CLINT, CMP, LIPID, DBIL, PHOS, MG #### [facility] [address] [address] [address] Brea Causey Cholesterol in LDL [Mass/Vol] 22.8 mg/dL Normal [facility] Comment on above: Performed By: #### U CLINT, CMP, LIPID, DBIL, PHOS, MG #### [facility] [address] [place] [address] Dr. Brea Causey Cholesterol.total/Chol esterol in HDL [Mass ratio] 1.9 {ratio} Normal [facility] Comment on above: Performed By: #### U CLINT, CMP, LIPID, DBIL, PHOS, MG #### [facility] [address] [address] [address] Brea Causey HDL NORMAL > or = 60 mg/dl - LO W CARDIOVASCULAR RISK <40 mg/dl - HIGH CARDIOVASCULAR RISK Normal [facility] Comment on above: Performed By: #### U CLINT, CMP, LIPID, DBIL, PHOS, MG #### [facility] [address] [address] [address] Brea Causey LDL CALC NORMAL SEE BELOW Normal [facility] Comment on above: Result Comment: <100 mg/dl OPTIMAL 100 - 129 mg/dl NEAR OR ABOVE OPTIMAL 130 - 159 mg/dl BORDERLINE HIGH 160 - 189 mg/dl HIGH >190 mg/dl VERY HIGH Performed By: #### U CLINT, CMP, LIPID, DBIL, PHOS, MG #### [facility] [address] [place] [address] Dr. Brea Causey Triglyceride [Mass/Vol] 81 mg/dL Normal <=150 [facility] Comment on above: Performed By: #### U CLINT, CMP, LIPID, DBIL, PHOS, MG #### [facility] [address] [address] [address] Brea Causey VLDL CALC 16.2 mg/dL Normal [facility] Comment on above: Performed By: #### U CLINT, CMP, LIPID, DBIL, PHOS, MG #### [facility] [address] [place] [address] Dr. Brea Causey MAGNESIUMon 04-03-2022 Magnesium [Mass/Vol] 1.6 mg/dL Critically low 1.8-2.4 [facility] Comment on above: Performed By: #### U CLINT, CMP, LIPID, DBIL, PHOS, MG #### [facility] [address] [place] [address] Dr. Brea Causey PHOSPHORUSon 04-03-2022 Phosphate [Mass/Vol] 3.9 mg/dL Normal 2.6-4.7 [facility] Comment on above: Performed By: #### U CLINT, CMP, LIPID, DBIL, PHOS, MG #### [facility] [address] [place] [address] Dr. Brea Causey PROF 14(COMP METB)on 022 Albumin [Mass/Vol] 4.0 g/dL Normal 3.4-5.0 [facility] Comment on above: Performed By: #### U CLINT, CMP, LIPID, DBIL, PHOS, MG #### [facility] [address] [place] [address] Dr. Brea Causey Albumin/Globulin [Mass ratio] 1.2 {ratio} Normal [facility] Comment on above: Performed By: #### U CLINT, CMP, LIPID, DBIL, PHOS, MG #### [facility] [address] [place] [address] Dr. Brea Causey ALP [Catalytic activity/Vol] 196 U/L Critically high 46-116 [facility] Comment on above: Performed By: #### U CLINT, CMP, LIPID, DBIL, PHOS, MG #### [facility] [address] [place] [address] Dr. Brea Causey ALT [Catalytic activity/Vol] 19 U/L Normal 16-63 [facility] Comment on above: Performed By: #### U CLINT, CMP, LIPID, DBIL, PHOS, MG #### [facility] [address] [address] [address] Brea Causey Anion gap [Moles/Vol] 10.2 mmol/L Normal [facility] Comment on above: Performed By: #### U CLINT, CMP, LIPID, DBIL, PHOS, MG #### [facility] [address] [address] [address] Brea Causey AST [Catalytic activity/Vol] 15 U/L Normal 15-37 [facility] Comment on above: Performed By: #### U CLINT, CMP, LIPID, DBIL, PHOS, MG #### [facility] [address] [place] [address] Dr. Brea Causey Bilirubin [Mass/Vol] 0.3 mg/dL Normal 0.2-1.0 [facility] Comment on above: Performed By: #### U CLINT, CMP, LIPID, DBIL, PHOS, MG #### [facility] [address] [place] [address] Dr. Brea Causey Calcium [Mass/Vol] 8.2 mg/dL Critically low 8.5-10.1 [facility] Comment on above: Performed By: #### U CLINT, CMP, LIPID, DBIL, PHOS, MG #### [facility] [address] [place] [address] Dr. Brea Causey Chloride [Moles/Vol] 97 mmol/L Critically low 98-107 [facility] Comment on above: Performed By: #### U CLINT, CMP, LIPID, DBIL, PHOS, MG #### [facility] [address] [place] [address] Dr. Brea Causye CO2 [Moles/Vol] 28.2 mmol/L Normal 21.0-32.0 [facility] Comment on above: Performed By: #### U CLINT, CMP, LIPID, DBIL, PHOS, MG #### [facility] [address] [place] [address] Dr. Brea Causey Creatinine [Mass/Vol] 1.00 mg/dL Normal 0.70-1.30 [facility] Comment on above: Performed By: #### U CLINT, CMP, LIPID, DBIL, PHOS, MG #### [facility] [address] [address] [address] Brea Causey EGFR-AF SAMMARINESE >60 Normal >=60 [facility] Comment on above: Performed By: #### U CLINT, CMP, LIPID, DBIL, PHOS, MG #### [facility] [address] [place] [address] Dr. Brea Causey EGFR-NON AF SAMMARINESE >60 Normal >=60 [facility] Comment on above: Performed By: #### U CLINT, CMP, LIPID, DBIL, PHOS, MG #### [facility] [address] [place] [address] Dr. Brea Causey Globulin (S) [Mass/Vol] 3.3 g/dL Normal [facility] Comment on above: Performed By: #### U CLINT, CMP, LIPID, DBIL, PHOS, MG #### [facility] [address] [place] [address] Dr. Brea Causey Glucose [Mass/Vol] 164 mg/dL Critically high 74-106 [facility] Comment on above: Performed By: #### U CLINT, CMP, LIPID, DBIL, PHOS, MG #### [facility] [address] [place] [address] Dr. Brea Causey Potassium [Moles/Vol] 4.4 mmol/L Normal 3.5-5.1 [facility] Comment on above: Performed By: #### U CLINT, CMP, LIPID, DBIL, PHOS, MG #### [facility] [address] [address] [address] Brea Causey Protein [Mass/Vol] 7.3 g/dL Normal 6.4-8.2 [facility] Comment on above: Performed By: #### U CLINT, CMP, LIPID, DBIL, PHOS, MG #### [facility] [address] [place] [address] Dr. Brea Causey Sodium [Moles/Vol] 131 mmol/L Critically low 136-145 [facility] Comment on above: Performed By: #### U CLINT, CMP, LIPID, DBIL, PHOS, MG #### [facility] [address] [address] [address] Brea Causey Urea nitrogen [Mass/Vol] 13.0 mg/dL Normal 7.0-18.0 [facility] Comment on above: Performed By: #### U CLINT, CMP, LIPID, DBIL, PHOS, MG #### [facility] [address] [address] [address] Brea Causey Urea nitrogen/Creatinine [Mass ratio] 13.0 mg/mg Normal [facility] Comment on above: Performed By: #### U CLINT, CMP, LIPID, DBIL, PHOS, MG #### [facility] [address] [place] [address] Dr. Brea Causey URIC ACID SERUMon 04-03-2022 Urate [Mass/Vol] 6.1 mg/dL Normal 3.5-7.2 [facility] Comment on above: Performed By: #### U CLINT, CMP, LIPID, DBIL, PHOS, MG #### [facility] [address] [place] [address] Dr. Brea Causey TESTOSTERONE, FREE,DIRECT, T OTAn 03-13-2022 Free Testosterone(Direct) 6.9 pg/mL Normal 6.6-18.1 [facility] Comment on above: Result Comment: Perf ormed at: BN Performed By: #### T ESTFRD #### [facility] [address] [place] [address] Dr. Brea Causey Testosterone [Mass/Vol] 428 ng/dL Normal 264-916 [facility] Comment on above: Result Comment: Adul t male reference interval is based on a population of healthy nonobese males (BMI <30) between 19 and 39 years old. daniel Harris.al. JCEM 2017,102;9099-9944. PMID: [id number]. Performed at: CB Performed By: #### T ESTFRD #### [facility] [address] [place] [address] Dr. Brea Causey BK VIRUS PCR QUANTon 022 BKV DNA QUANT PCR PLASMA Negative Normal Negative [facility] Comment on above: Result Comment: No B K DNA detected. . The linear range of the assay is 22 - 100,000,000 IU/mL. Performed By: #### B KVIRUS #### [facility] [address] [place] [address] Dr. Brea Causey Log10 BKV DNA Plasma Normal [facility] Comment on above: Performed By: #### B KVIRUS #### [facility] [address] [place] [address] Dr. Brea Causey FK506 (TACROLIMUS) WHOLE BLO ODon 03-11-2022 Tacrolimus (FK506), Blood 4.7 ng/mL Normal 2.0-20.0 [facility] Comment on above: Result Comment: Trou gh (immediately following transplant) 15.0 . Trough (steady state, 2 weeks or more after transplant): 3.0 - 8.0 . Performed by LC-MS/MS technology. Performed By: #### C BC #### [facility] [address] [place] [address] Dr. Brea Causey BILIRUBIN CONJUGATED (DIRECT )on 03-08-2022 BILI, CONJUGATED 0.1 mg/dL Normal 0.0-0.2 [facility] Comment on above: Performed By: #### U CLINT, CMP, LIPID, DBIL, PHOS, MG #### [facility] [address] [place] [address] Dr. Brea Causey CBC AUTO DIFFon 03-08-2022 BASO # 0.0 103/ul Normal 0.0-0.1 [facility] Comment on above: Performed By: #### U CLINT, CMP, LIPID, DBIL, PHOS, MG #### [facility] [address] [place] [address] Dr. Brea Causey Basophils/100 WBC (Bld) 0.7 % Normal 0.2-2.0 [facility] Comment on above: Performed By: #### U CLINT, CMP, LIPID, DBIL, PHOS, MG #### [facility] [address] [place] [address] Dr. Brea Causey EO # 0.2 103/ul Normal 0.0-0.7 [facility] Comment on above: Performed By: #### U CLINT, CMP, LIPID, DBIL, PHOS, MG #### [facility] [address] [address] [address] Brea Causey Eosinophils/100 WBC (Bld) 3.1 % Normal 0.9-7.0 [facility] Comment on above: Performed By: #### U CLINT, CMP, LIPID, DBIL, PHOS, MG #### [facility] [address] [place] [address] Dr. Brea Causey Erythrocyte distribution width (RBC) [Ratio] 13.3 % Normal 11.0-15.0 [facility] Comment on above: Performed By: #### U CLINT, CMP, LIPID, DBIL, PHOS, MG #### [facility] [address] [place] [address] Dr. Brea Causey Hematocrit (Bld) [Volume fraction] 35.7 % Critically low 42.0-54.0 [facility] Comment on above: Performed By: #### U CLINT, CMP, LIPID, DBIL, PHOS, MG #### [facility] [address] [place] [address] Dr. Brea Causey Hemoglobin (Bld) [Mass/Vol] 12.0 g/dL Critically low 14.0-18.0 [facility] Comment on above: Performed By: #### U CLINT, CMP, LIPID, DBIL, PHOS, MG #### [facility] [address] [place] [address] Dr. Brea Causey IG # 0.06 10e3/ul Critically high 0.00-0.03 [facility] Comment on above: Performed By: #### U LCINT, CMP, LIPID, DBIL, PHOS, MG #### [facility] [address] [place] [address] Dr. Brea Causey IG % 1.0 % Critically high 0.0-0.5 [facility] Comment on above: Performed By: #### U CLINT, CMP, LIPID, DBIL, PHOS, MG #### [facility] [address] [address] [address] Brea Causey LYMPH # 0.8 103/ul Critically low 1.2-3.8 [facility] Comment on above: Performed By: #### U CLINT, CMP, LIPID, DBIL, PHOS, MG #### [facility] [address] [place] [address] Dr. Brea Causey Lymphocytes/100 WBC (Bld) 12.9 % Critically low 20.5-60.0 [facility] Comment on above: Performed By: #### U CLINT, CMP, LIPID, DBIL, PHOS, MG #### [facility] [address] [address] [address] Brea Causey MANUAL DIFF REQ NO Normal [facility] Comment on above: Performed By: #### U CLINT, CMP, LIPID, DBIL, PHOS, MG #### [facility] [address] [place] [address] Dr. Brea Causey MCH (RBC) [Entitic mass] 29.5 pg Normal 25.9-34.0 [facility] Comment on above: Performed By: #### U CLINT, CMP, LIPID, DBIL, PHOS, MG #### [facility] [address] [place] [address] Dr. Brea Causey MCHC (RBC) [Mass/Vol] 33.6 g/dL Normal 29.9-35.2 [facility] Comment on above: Performed By: #### U CLINT, CMP, LIPID, DBIL, PHOS, MG #### [facility] [address] [place] [address] Dr. Brea Causey MCV (RBC) [Entitic vol] 87.7 fL Normal 80.0-94.0 [facility] Comment on above: Performed By: #### U CLINT, CMP, LIPID, DBIL, PHOS, MG #### [facility] [address] [place] [address] Dr. Brea Causey MONO # 0.6 103/ul Normal 0.3-0.8 [facility] Comment on above: Performed By: #### U CLINT, CMP, LIPID, DBIL, PHOS, MG #### [facility] [address] [address] [address] Brea Causey Monocytes/100 WBC (Bld) 9.8 % Normal 1.7-12.0 [facility] Comment on above: Performed By: #### U CLINT, CMP, LIPID, DBIL, PHOS, MG #### [facility] [address] [address] [address] Brea Causye NEUT # 4.4 103/ul Normal 1.4-6.5 [facility] Comment on above: Performed By: #### U CLINT, CMP, LIPID, DBIL, PHOS, MG #### [facility] [address] [place] [address] Dr. Brea Causey Neutrophils/100 WBC (Bld) 72.5 % Normal 43.0-75.0 [facility] Comment on above: Performed By: #### U CLINT, CMP, LIPID, DBIL, PHOS, MG #### [facility] [address] [place] [address] Dr. Brea Causey Platelet mean volume (Bld) [Entitic vol] 9.6 fL Normal 9.5-13.5 [facility] Comment on above: Performed By: #### U CLINT, CMP, LIPID, DBIL, PHOS, MG #### [facility] [address] [address] [address] Brea Causey PLT 265 103/ul Normal 150-450 [facility] Comment on above: Performed By: #### U CLINT, CMP, LIPID, DBIL, PHOS, MG #### [facility] [address] [place] [address] Dr. Brea Causey RBC 4.07 106/ul Critically low 4.70-6.10 [facility] Comment on above: Performed By: #### U CLINT, CMP, LIPID, DBIL, PHOS, MG #### [facility] [address] [address] [address] Brea Causey WBC 6.0 103/ul Normal 4.0-11.0 [facility] Comment on above: Performed By: #### U CLINT, CMP, LIPID, DBIL, PHOS, MG #### [facility] [address] [address] [address] Brea Causey GLYCOHEMOGLOBIN A1Con 2021 ADA RECOMMENDATION SEE BELOW Normal [facility] Comment on above: Result Comment: ADA RECOMMENDED LIMIT 4.0 - 6.0 ADA THERAPEUTIC TARGET < 7.0 ACTION SUGGESTED > 7.0 Performed By: #### U CLINT, CMP, LIPID, DBIL, PHOS, MG #### [facility] [address] [address] [address] Brea Causey Glucose [Mass/Vol] 169 mg/dL Normal [facility] Comment on above: Performed By: #### U LCINT, CMP, LIPID, DBIL, PHOS, MG #### [facility] [address] [address] [address] Brea Causey HbA1c (Bld) [Mass fraction] 7.5 % Critically high 4.5-6.2 [facility] Comment on above: Performed By: #### U CLINT, CMP, LIPID, DBIL, PHOS, MG #### [facility] [address] [address] [address] Brea Causey LIPID PROFILEon 03-08-2022 CHOL-HDL RATIO NORM SEE BELOW Normal [facility] Comment on above: Result Comment: 3.3 - 4.4 LOW RISK 4.4 - 7.1 AVERAGE RISK 7.1 - 11.0 MODERATE RISK >11.0 HIGH RISK Performed By: #### U CLINT, CMP, LIPID, DBIL, PHOS, MG #### [facility] [address] [address] [address] Brea Causey Cholesterol [Mass/Vol] 77 mg/dL Normal <=200 [facility] Comment on above: Performed By: #### U CLINT, CMP, LIPID, DBIL, PHOS, MG #### [facility] [address] [address] [address] Brea Causey Cholesterol in HDL [Mass/Vol] 49 mg/dL Normal 40-60 [facility] Comment on above: Performed By: #### U CLINT, CMP, LIPID, DBIL, PHOS, MG #### [facility] [address] [address] [address] Brea Causey Cholesterol in LDL [Mass/Vol] 20.4 mg/dL Normal [facility] Comment on above: Performed By: #### U CLINT, CMP, LIPID, DBIL, PHOS, MG #### [facility] [address] [address] [address] Brea aCusey Cholesterol.total/Chol esterol in HDL [Mass ratio] 1.6 {ratio} Normal [facility] Comment on above: Performed By: #### U CLINT, CMP, LIPID, DBIL, PHOS, MG #### [facility] [address] [address] [address] Brea Causey HDL NORMAL > or = 60 mg/dl - LO W CARDIOVASCULAR RISK <40 mg/dl - HIGH CARDIOVASCULAR RISK Normal [facility] Comment on above: Performed By: #### U CLINT, CMP, LIPID, DBIL, PHOS, MG #### [facility] [address] [place] [address] Dr. Brea Causey LDL CALC NORMAL SEE BELOW Normal [facility] Comment on above: Result Comment: <100 mg/dl OPTIMAL 100 - 129 mg/dl NEAR OR ABOVE OPTIMAL 130 - 159 mg/dl BORDERLINE HIGH 160 - 189 mg/dl HIGH >190 mg/dl VERY HIGH Performed By: #### U CLINT, CMP, LIPID, DBIL, PHOS, MG #### [facility] [address] [address] [address] Brea Causey Triglyceride [Mass/Vol] 38 mg/dL Normal <=150 [facility] Comment on above: Performed By: #### U CLINT, CMP, LIPID, DBIL, PHOS, MG #### [facility] [address] [address] [address] Brea Causey VLDL CALC 7.6 mg/dL Normal [facility] Comment on above: Performed By: #### U CLINT, CMP, LIPID, DBIL, PHOS, MG #### [facility] [address] [address] [address] Brea Causey MAGNESIUMon 03-08-2022 Magnesium [Mass/Vol] 1.5 mg/dL Critically low 1.8-2.4 [facility] Comment on above: Performed By: #### U CLINT, CMP, LIPID, DBIL, PHOS, MG #### [facility] [address] [place] [address] Dr. Brea Causey PHOSPHORUSon 03-08-2022 Phosphate [Mass/Vol] 3.6 mg/dL Normal 2.6-4.7 [facility] Comment on above: Performed By: #### U CLINT, CMP, LIPID, DBIL, PHOS, MG #### [facility] [address] [place] [address] Dr. Brea Causey PROF 14(COMP METB)on 022 Albumin [Mass/Vol] 4.0 g/dL Normal 3.4-5.0 [facility] Comment on above: Performed By: #### U CLINT, CMP, LIPID, DBIL, PHOS, MG #### [facility] [address] [place] [address] Dr. Brea Causey Albumin/Globulin [Mass ratio] 1.2 {ratio} Normal [facility] Comment on above: Performed By: #### U CLINT, CMP, LIPID, DBIL, PHOS, MG #### [facility] [address] [place] [address] Dr. Brea Causey ALP [Catalytic activity/Vol] 176 U/L Critically high 46-116 [facility] Comment on above: Performed By: #### U CLINT, CMP, LIPID, DBIL, PHOS, MG #### [facility] [address] [place] [address] Dr. Brea Causey ALT [Catalytic activity/Vol] 21 U/L Normal 16-63 [facility] Comment on above: Performed By: #### U CLINT, CMP, LIPID, DBIL, PHOS, MG #### [facility] [address] [place] [address] Dr. Brea Causey Anion gap [Moles/Vol] 12.0 mmol/L Normal [facility] Comment on above: Performed By: #### U CLINT, CMP, LIPID, DBIL, PHOS, MG #### [facility] [address] [address] [address] Brea Causey AST [Catalytic activity/Vol] 13 U/L Critically low 15-37 [facility] Comment on above: Performed By: #### U CLINT, CMP, LIPID, DBIL, PHOS, MG #### [facility] [address] [address] [address] Brea Causey Bilirubin [Mass/Vol] 0.3 mg/dL Normal 0.2-1.0 [facility] Comment on above: Performed By: #### U CLINT, CMP, LIPID, DBIL, PHOS, MG #### [facility] [address] [place] [address] Dr. Brea Causey Calcium [Mass/Vol] 7.9 mg/dL Critically low 8.5-10.1 [facility] Comment on above: Performed By: #### U CLINT, CMP, LIPID, DBIL, PHOS, MG #### [facility] [address] [place] [address] Dr. Brea Causey Chloride [Moles/Vol] 100 mmol/L Normal 98-107 [facility] Comment on above: Performed By: #### U CLINT, CMP, LIPID, DBIL, PHOS, MG #### [facility] [address] [place] [address] Dr. Brea Causey CO2 [Moles/Vol] 27.3 mmol/L Normal 21.0-32.0 [facility] Comment on above: Performed By: #### U CLINT, CMP, LIPID, DBIL, PHOS, MG #### [facility] [address] [address] [address] Brea Causey Creatinine [Mass/Vol] 1.00 mg/dL Normal 0.70-1.30 [facility] Comment on above: Performed By: #### U CLINT, CMP, LIPID, DBIL, PHOS, MG #### [facility] [address] [place] [address] Dr. Brea Causey EGFR-AF SAMMARINESE >60 Normal >=60 [facility] Comment on above: Performed By: #### U CLINT, CMP, LIPID, DBIL, PHOS, MG #### [facility] [address] [address] [address] Brea Causey EGFR-NON AF SAMMARINESE >60 Normal >=60 [facility] Comment on above: Performed By: #### U CLINT, CMP, LIPID, DBIL, PHOS, MG #### [facility] [address] [address] [address] Brea Casuey Globulin (S) [Mass/Vol] 3.3 g/dL Normal [facility] Comment on above: Performed By: #### U CLINT, CMP, LIPID, DBIL, PHOS, MG #### [facility] [address] [place] [address] Dr. Brea Causey Glucose [Mass/Vol] 155 mg/dL Critically high 74-106 [facility] Comment on above: Performed By: #### U CLINT, CMP, LIPID, DBIL, PHOS, MG #### [facility] [address] [address] [address] Brea Causey Potassium [Moles/Vol] 4.3 mmol/L Normal 3.5-5.1 [facility] Comment on above: Performed By: #### U CLINT, CMP, LIPID, DBIL, PHOS, MG #### [facility] [address] [place] [address] Dr. Brea Causey Protein [Mass/Vol] 7.3 g/dL Normal 6.4-8.2 [facility] Comment on above: Performed By: #### U CLINT, CMP, LIPID, DBIL, PHOS, MG #### [facility] [address] [address] [address] Brea Causey Sodium [Moles/Vol] 135 mmol/L Critically low 136-145 Th [facility] Comment on above: Performed By: #### U CLINT, CMP, LIPID, DBIL, PHOS, MG #### [facility] [address] [place] [address] Dr. Brea Causey Urea nitrogen [Mass/Vol] 13.0 mg/dL Normal 7.0-18.0 [facility] Comment on above: Performed By: #### U CLINT, CMP, LIPID, DBIL, PHOS, MG #### [facility] [address] [address] [address] Brea Causey Urea nitrogen/Creatinine [Mass ratio] 13.0 mg/mg Normal [facility] Comment on above: Performed By: #### U CLINT, CMP, LIPID, DBIL, PHOS, MG #### [facility] [address] [address] [address] Brea Causey URIC ACID SERUMon 03-08-2022 Urate [Mass/Vol] 7.3 mg/dL Critically high 3.5-7.2 [facility] Comment on above: Performed By: #### U CLINT, CMP, LIPID, DBIL, PHOS, MG #### [facility] [address] [address] [address] Brea Snyder 03-05-2022 L - -------- Specimen: [id number] Received: 03/05/22 Status: CHERI Irene Num: [id number] Spec Type: Surgical Subm Dr: Tj Wells MD Tissues: A Colon Biopsy (COLON BX) B Colon Biopsy (DIVERTICULAR COLITIS) Procedures: HE Stain/4, Gross/Micro L4/2 -------- Age/ Patient Sex Location Account Attending Physician -------- Roger Kerr 71/M [id number] Tj Wells MD -------- SPEC NUM: [id number] RECD: 03/05/22 STATUS: CHERI BONILLA NUM: [id number] ESTEFANI: 03/05/22 DR: Tj Wells MD ENTERED: [...] in one cassette labeled B1. -------- Specimen: [id number] Received: 03/05/22 Status: DEMETRIOSherron Bonilla Num: [id number] Spec Type: Surgical Subm Dr: Tj Wells MD Tissues: A Colon Biopsy (COLON BX) B Colon Biopsy (DIVERTICULAR COLITIS) Procedures: HE Stain/4, Gross/Micro L4/2 -------- Patient: Roger Kerr [id number] (Continued) -------- Specimen: [id number] Received: 03/05/22 (Continued) Signed (signature on file) Kalpana Shaw MD 03/07/22 1025 -------- Specimen: [id number] Received: 03/05/22 Status: DEMETRIOSherron Req Num: [id number] Spec Type: Surgical Subm Dr: Tj Wells MD Tissues: A Colon Biopsy (COLON BX) B Colon Biopsy (DIVERTICULAR COLITIS) Procedures: HE Stain/4, Gross/Micro L4/2 -------- Patient: Roger Kerr [id number] (Continued) -------- Specimen: [id number] Received: 03/05/22 (Continued) Microscopic Description A. Two glass slides with H E stained material have been examined. The microscopic findings support the above pathologic diagnosis. B. Two glass slides with H E stained material have been examined. The microscopic findings support the above pathologic diagnosis. CPT Codes 14751?2 -------- -------- Specimen: [id number] Received: 03/05/22 Status: CHERI Bonilla Num: [id number] Spec Type: Surgical Subm Dr: Tj Wells MD Tissues: A Colon Biopsy (COLON BX) B Colon Biopsy (DIVERTICULAR COLITIS) Procedures: HE Stain/4, Gross/Micro L4/2 -------- Patient: Roger Kerr [id number] (Continued) -------- Signed (signature on file) Kalpana Shaw MD 03/07/22 1025 [facility] COVID-19 Antigenon 2 COVID-19 Antigen Healthcare [...] developed and its performance characteristic determined by [employer] and validated at [facility]. This test has not been FDA cleared [...] for SARS Antigen by ROCHELLE PERFORMED BY: [place] [address] PATHOLOGIST [employer] DIRECTOR FEI WOODRUFF M.D. Normal [facility] Comment on above: Performed By: #### C OVID-19 MARQUISE, SOFIANEG #### [facility] [address] [place] [address] COVID-19 SOFIAOrdered By: Sheila Wells on 03-01-2022 SARS-CoV+SARS-CoV-2 (COVID-19) Ag IA.rapid Ql (Resp) Negative Negative [facility] Comment on above: This is a duplicate Marquise SARS Antigen (ROCHELLE) result to be used for statistical tracking purpose only. No Panel InformationOrdered By: Tj Wells on 03-01-2022 SARS Antigen (LFIA) [facility] Marquise Ag Negativeon 03-01-20 22 Marquise Ag Negative Negative Normal Negative [facility] Comment on above: Result Comment: This is a duplicate Marquise SARS Antigen (ROCHELLE) result to be used for statistical tracking purpose only. PERFORMED BY: [address] [address] PATHOLOGIST [employer] DIRECTOR FEI WOODRUFF M.D. Performed By: #### C OVID-19 MARQUISE, SOFIANEG #### [facility] [address] [place], [place] [id number] [facility] FK506 (TACROLIMUS) WHOLE BLO ODon 02-05-2022 Tacrolimus (FK506), Blood 5.4 ng/mL Normal 2.0-20.0 [facility] Comment on above: Result Comment: Trou gh (immediately following transplant) 15.0 . Trough (steady state, 2 weeks or more after transplant): 3.0 - 8.0 . Performed by LC-MS/MS technology. Performed By: #### U CLINT, CMP, LIPID, DBIL, PHOS, MG #### [facility] [address] [place] [address] Dr. Brea Causey BILIRUBIN CONJUGATED (DIRECT )on 02-01-2022 BILI, CONJUGATED 0.1 mg/dL Normal 0.0-0.2 [facility] Comment on above: Performed By: #### C BC #### [facility] [address] [place] [address] Dr. Brea Causey CBC AUTO DIFFon 02-01-2022 BASO # 0.0 103/ul Normal 0.0-0.1 [facility] Comment on above: Performed By: #### B KVIRUS #### [facility] [address] [place] [address] Dr. Brea Causey Basophils/100 WBC (Bld) 0.6 % Normal 0.2-2.0 [facility] Comment on above: Performed By: #### B KVIRUS #### [facility] [address] [place] [address] Dr. Brea Causey EO # 0.2 103/ul Normal 0.0-0.7 [facility] Comment on above: Performed By: #### B KVIRUS #### [facility] [address] [place] [address] Dr. Brea Causey Eosinophils/100 WBC (Bld) 3.5 % Normal 0.9-7.0 [facility] Comment on above: Performed By: #### B KVIRUS #### [facility] [address] [place] [address] Dr. Brea Causey Erythrocyte distribution width (RBC) [Ratio] 13.0 % Normal 11.0-15.0 [facility] Comment on above: Performed By: #### B KVIRUS #### [facility] [address] [place] [address] Dr. Brea Causey Hematocrit (Bld) [Volume fraction] 36.9 % Critically low 42.0-54.0 [facility] Comment on above: Performed By: #### B KVIRUS #### [facility] [address] [place] [address] Dr. Brea Causey Hemoglobin (Bld) [Mass/Vol] 12.0 g/dL Critically low 14.0-18.0 [facility] Comment on above: Performed By: #### B KVIRUS #### [facility] [address] [place] [address] Dr. Brea Causey IG # 0.07 10e3/ul Critically high 0.00-0.03 [facility] Comment on above: Performed By: #### B KVIRUS #### [facility] [address] [place] [address] Dr. Brea Causey IG % 1.0 % Critically high 0.0-0.5 [facility] Comment on above: Performed By: #### B KVIRUS #### [facility] [address] [place] [address] Dr. Brea Causey LYMPH # 1.0 103/ul Critically low 1.2-3.8 [facility] Comment on above: Performed By: #### B KVIRUS #### [facility] [address] [place] [address] Dr. Brea Causey Lymphocytes/100 WBC (Bld) 14.2 % Critically low 20.5-60.0 [facility] Comment on above: Performed By: #### B KVIRUS #### [facility] [address] [place] [address] Dr. Brea Causey MANUAL DIFF REQ NO Normal [facility] Comment on above: Performed By: #### B KVIRUS #### [facility] [address] [place] [address] Dr. Brea Causey MCH (RBC) [Entitic mass] 29.1 pg Normal 25.9-34.0 [facility] Comment on above: Performed By: #### B KVIRUS #### [facility] [address] [place] [address] Dr. Brea Causey MCHC (RBC) [Mass/Vol] 32.5 g/dL Normal 29.9-35.2 [facility] Comment on above: Performed By: #### B KVIRUS #### [facility] [address] [place] [address] Dr. Brea Causey MCV (RBC) [Entitic vol] 89.6 fL Normal 80.0-94.0 [facility] Comment on above: Performed By: #### B KVIRUS #### [facility] [address] [place] [address] Dr. Brea Causey MONO # 0.7 103/ul Normal 0.3-0.8 [facility] Comment on above: Performed By: #### B KVIRUS #### [facility] [address] [place] [address] Dr. Brea Causey Monocytes/100 WBC (Bld) 9.9 % Normal 1.7-12.0 [facility] Comment on above: Performed By: #### B KVIRUS #### [facility] [address] [place] [address] Dr. Brea Causey NEUT # 4.9 103/ul Normal 1.4-6.5 [facility] Comment on above: Performed By: #### B KVIRUS #### [facility] [address] [place] [address] Dr. Brea Causey Neutrophils/100 WBC (Bld) 70.8 % Normal 43.0-75.0 [facility] Comment on above: Performed By: #### B KVIRUS #### [facility] [address] [place] [address] Dr. Brea Causey Platelet mean volume (Bld) [Entitic vol] 9.6 fL Normal 9.5-13.5 [facility] Comment on above: Performed By: #### B KVIRUS #### [facility] [address] [place] [address] Dr. Brea Causey PLT 247 103/ul Normal 150-450 [facility] Comment on above: Performed By: #### B KVIRUS #### [facility] [address] [place] [address] Dr. Brea Causey RBC 4.12 106/ul Critically low 4.70-6.10 [facility] Comment on above: Performed By: #### B KVIRUS #### [facility] [address] [address] [address] Brea Causey WBC 6.9 103/ul Normal 4.0-11.0 [facility] Comment on above: Performed By: #### B KVIRUS #### [facility] [address] [place] [address] Dr. Brea Causey LIPID PROFILEon 02-01-2022 CHOL-HDL RATIO NORM SEE BELOW Normal [facility] Comment on above: Result Comment: 3.3 - 4.4 LOW RISK 4.4 - 7.1 AVERAGE RISK 7.1 - 11.0 MODERATE RISK >11.0 HIGH RISK Performed By: #### C BC #### [facility] [address] [place] [address] Dr. Brea Causey Cholesterol [Mass/Vol] 77 mg/dL Normal <=200 Th [facility] Comment on above: Performed By: #### C BC #### [facility] [address] [place] [address] Dr. Brea Causey Cholesterol in HDL [Mass/Vol] 40 mg/dL Normal 40-60 [facility] Comment on above: Performed By: #### C BC #### [facility] [address] [place] [address] Dr. Brea Causey Cholesterol in LDL [Mass/Vol] 21.0 mg/dL Normal [facility] Comment on above: Performed By: #### C BC #### [facility] [address] [place] [address] Dr. Brea Causey Cholesterol.total/Chol esterol in HDL [Mass ratio] 1.9 {ratio} Normal [facility] Comment on above: Performed By: #### C BC #### [facility] [address] [place] [address] Dr. Brea Causey HDL NORMAL > or = 60 mg/dl - LO W CARDIOVASCULAR RISK <40 mg/dl - HIGH CARDIOVASCULAR RISK Normal [facility] Comment on above: Performed By: #### C BC #### [facility] [address] [place] [address] Dr. Brea Causey LDL CALC NORMAL SEE BELOW Normal [facility] Comment on above: Result Comment: <100 mg/dl OPTIMAL 100 - 129 mg/dl NEAR OR ABOVE OPTIMAL 130 - 159 mg/dl BORDERLINE HIGH 160 - 189 mg/dl HIGH >190 mg/dl VERY HIGH Performed By: #### C BC #### [facility] [address] [place] [address] Dr. Brea Causey Triglyceride [Mass/Vol] 80 mg/dL Normal <=150 [facility] Comment on above: Performed By: #### C BC #### [facility] [address] [place] [address] Dr. Brea Causey VLDL CALC 16.0 mg/dL Normal [facility] Comment on above: Performed By: #### C BC #### [facility] [address] [place] [address] Dr. Brea Causey MAGNESIUMon 02-01-2022 Magnesium [Mass/Vol] 1.5 mg/dL Critically low 1.8-2.4 [facility] Comment on above: Performed By: #### C BC #### [facility] [address] [place] [address] Dr. Brea Causey PHOSPHORUSon 02-01-2022 Phosphate [Mass/Vol] 4.1 mg/dL Normal 2.6-4.7 [facility] Comment on above: Performed By: #### C BC #### [facility] [address] [place] [address] Dr. Brea Causey PROF 14(COMP METB)on 022 Albumin [Mass/Vol] 4.0 g/dL Normal 3.4-5.0 [facility] Comment on above: Performed By: #### C BC #### [facility] [address] [place] [address] Dr. Brea Causey Albumin/Globulin [Mass ratio] 1.3 {ratio} Normal [facility] Comment on above: Performed By: #### C BC #### [facility] [address] [place] [address] Dr. Brea Causey ALP [Catalytic activity/Vol] 162 U/L Critically high 46-116 [facility] Comment on above: Performed By: #### C BC #### [facility] [address] [place] [address] Dr. Brea Causey ALT [Catalytic activity/Vol] 25 U/L Normal 16-63 [facility] Comment on above: Performed By: #### C BC #### [facility] [address] [address] [address] Brea Causey Anion gap [Moles/Vol] 11.1 mmol/L Normal [facility] Comment on above: Performed By: #### C BC #### [facility] [address] [place] [address] Dr. Brea Causey AST [Catalytic activity/Vol] 16 U/L Normal 15-37 [facility] Comment on above: Performed By: #### C BC #### [facility] [address] [place] [address] Dr. Brea Causey Bilirubin [Mass/Vol] 0.4 mg/dL Normal 0.2-1.0 [facility] Comment on above: Performed By: #### C BC #### [facility] [address] [place] [address] Dr. Brea Causey Calcium [Mass/Vol] 8.2 mg/dL Critically low 8.5-10.1 [facility] Comment on above: Performed By: #### C BC #### [facility] [address] [place] [address] Dr. Brea Causey Chloride [Moles/Vol] 99 mmol/L Normal 98-107 [facility] Comment on above: Performed By: #### C BC #### [facility] [address] [place] [address] Dr. Brea Causey CO2 [Moles/Vol] 28.1 mmol/L Normal 21.0-32.0 [facility] Comment on above: Performed By: #### C BC #### [facility] [address] [place] [address] Dr. Brea Causey Creatinine [Mass/Vol] 1.13 mg/dL Normal 0.70-1.30 [facility] Comment on above: Performed By: #### C BC #### [facility] [address] [address] [address] Brea Causey EGFR-AF SAMMARINESE >60 Normal >=60 [facility] Comment on above: Performed By: #### C BC #### [facility] [address] [address] [address] Brea Causey EGFR-NON AF SAMMARINESE >60 Normal >=60 [facility] Comment on above: Performed By: #### C BC #### [facility] [address] [address] [address] Brea Causey Globulin (S) [Mass/Vol] 3.1 g/dL Normal [facility] Comment on above: Performed By: #### C BC #### [facility] [address] [place] [address] Dr. Brea Causey Glucose [Mass/Vol] 177 mg/dL Critically high 74-106 [facility] Comment on above: Performed By: #### C BC #### [facility] [address] [address] [address] Brea Causey Potassium [Moles/Vol] 5.2 mmol/L Critically high 3.5-5.1 [facility] Comment on above: Performed By: #### C BC #### [facility] [address] [place] [address] Dr. Brea Causey Protein [Mass/Vol] 7.1 g/dL Normal 6.4-8.2 [facility] Comment on above: Performed By: #### C BC #### [facility] [address] [address] [address] Brea Causey Sodium [Moles/Vol] 133 mmol/L Critically low 136-145 [facility] Comment on above: Performed By: #### C BC #### [facility] [address] [place] [address] Dr. Brea Causey Urea nitrogen [Mass/Vol] 12.0 mg/dL Normal 7.0-18.0 [facility] Comment on above: Performed By: #### C BC #### [facility] [address] [place] [address] Dr. Brea Causey Urea nitrogen/Creatinine [Mass ratio] 10.6 mg/mg Normal [facility] Comment on above: Performed By: #### C BC #### [facility] [address] [place] [address] Dr. Brea Causey URIC ACID SERUMon 02-01-2022 Urate [Mass/Vol] 7.7 mg/dL Critically high 3.5-7.2 [facility] Comment on above: Performed By: #### C BC #### [facility] [address] [place] [address] Dr. Brea Causey FK506 (TACROLIMUS) WHOLE BLO ODon 01-06-2022 Tacrolimus (FK506), Blood 11.4 ng/mL Normal 2.0-20.0 [facility] Comment on above: Result Comment: Trou gh (immediately following transplant) 15.0 . Trough (steady state, 2 weeks or more after transplant): 3.0 - 8.0 . Performed by LC-MS/MS technology. Performed By: #### B KVIRUS #### [facility] [address] [place] [address] Dr. Brea Causey BILIRUBIN CONJUGATED (DIRECT )on 01-04-2022 BILI, CONJUGATED 0.1 mg/dL Normal 0.0-0.2 [facility] Comment on above: Performed By: #### U CLINT, CMP, LIPID, DBIL, PHOS, MG #### [facility] [address] [place] [address] Dr. Brea Causey BOX TEST SENT OUTon 01-05-20 22 SENT TO REF LAB 01/04/2022 Normal [facility] Comment on above: Performed By: #### U CLINT, CMP, LIPID, DBIL, PHOS, MG #### [facility] [address] [place] [address] Dr. Brea Causey CBC AUTO DIFFon 01-04-2022 BASO # 0.0 103/ul Normal 0.0-0.1 [facility] Comment on above: Performed By: #### U CLINT, CMP, LIPID, DBIL, PHOS, MG #### [facility] [address] [place] [address] Dr. Brea Causey Basophils/100 WBC (Bld) 0.5 % Normal 0.2-2.0 [facility] Comment on above: Performed By: #### U CLINT, CMP, LIPID, DBIL, PHOS, MG #### [facility] [address] [place] [address] Dr. Brea Causey EO # 0.3 103/ul Normal 0.0-0.7 [facility] Comment on above: Performed By: #### U CLINT, CMP, LIPID, DBIL, PHOS, MG #### [facility] [address] [place] [address] Dr. Brea Causey Eosinophils/100 WBC (Bld) 3.9 % Normal 0.9-7.0 [facility] Comment on above: Performed By: #### U CLINT, CMP, LIPID, DBIL, PHOS, MG #### [facility] [address] [place] [address] Dr. Brea Causey Erythrocyte distribution width (RBC) [Ratio] 13.1 % Normal 11.0-15.0 [facility] Comment on above: Performed By: #### U CLINT, CMP, LIPID, DBIL, PHOS, MG #### [facility] [address] [place] [address] Dr. Brea Causey Hematocrit (Bld) [Volume fraction] 37.4 % Critically low 42.0-54.0 [facility] Comment on above: Performed By: #### U CLINT, CMP, LIPID, DBIL, PHOS, MG #### [facility] [address] [place] [address] Dr. Brea Causey Hemoglobin (Bld) [Mass/Vol] 12.0 g/dL Critically low 14.0-18.0 [facility] Comment on above: Performed By: #### U CLINT, CMP, LIPID, DBIL, PHOS, MG #### [facility] [address] [place] [address] Dr. Brea Causey IG # 0.07 10e3/ul Critically high 0.00-0.03 [facility] Comment on above: Performed By: #### U CLINT, CMP, LIPID, DBIL, PHOS, MG #### [facility] [address] [address] [address] Brea Causey IG % 1.1 % Critically high 0.0-0.5 [facility] Comment on above: Performed By: #### U CLINT, CMP, LIPID, DBIL, PHOS, MG #### [facility] [address] [place] [address] Dr. Brea Causey LYMPH # 0.8 103/ul Critically low 1.2-3.8 [facility] Comment on above: Performed By: #### U CLINT, CMP, LIPID, DBIL, PHOS, MG #### [facility] [address] [place] [address] Dr. Brea Causey Lymphocytes/100 WBC (Bld) 12.2 % Critically low 20.5-60.0 [facility] Comment on above: Performed By: #### U CLINT, CMP, LIPID, DBIL, PHOS, MG #### [facility] [address] [place] [address] Dr. Brea Causey MANUAL DIFF REQ NO Normal [facility] Comment on above: Performed By: #### U CLINT, CMP, LIPID, DBIL, PHOS, MG #### [facility] [address] [place] [address] Dr. Brea Causey MCH (RBC) [Entitic mass] 29.1 pg Normal 25.9-34.0 [facility] Comment on above: Performed By: #### U CLINT, CMP, LIPID, DBIL, PHOS, MG #### [facility] [address] [place] [address] Dr. Brea Causey MCHC (RBC) [Mass/Vol] 32.1 g/dL Normal 29.9-35.2 [facility] Comment on above: Performed By: #### U CLINT, CMP, LIPID, DBIL, PHOS, MG #### [facility] [address] [place] [address] Dr. Brea Causey MCV (RBC) [Entitic vol] 90.6 fL Normal 80.0-94.0 [facility] Comment on above: Performed By: #### U CLINT, CMP, LIPID, DBIL, PHOS, MG #### [facility] [address] [place] [address] Dr. Brea Causey MONO # 0.5 103/ul Normal 0.3-0.8 [facility] Comment on above: Performed By: #### U CLINT, CMP, LIPID, DBIL, PHOS, MG #### [facility] [address] [place] [address] Dr. Brea Causey Monocytes/100 WBC (Bld) 8.0 % Normal 1.7-12.0 [facility] Comment on above: Performed By: #### U CLINT, CMP, LIPID, DBIL, PHOS, MG #### [facility] [address] [place] [address] Dr. Brea Causey NEUT # 5.0 103/ul Normal 1.4-6.5 [facility] Comment on above: Performed By: #### U CLINT, CMP, LIPID, DBIL, PHOS, MG #### [facility] [address] [place] [address] Dr. Brea Causey Neutrophils/100 WBC (Bld) 74.3 % Normal 43.0-75.0 [facility] Comment on above: Performed By: #### U CLINT, CMP, LIPID, DBIL, PHOS, MG #### [facility] [address] [place] [address] Dr. Brea Causey Platelet mean volume (Bld) [Entitic vol] 9.5 fL Normal 9.5-13.5 [facility] Comment on above: Performed By: #### U CLINT, CMP, LIPID, DBIL, PHOS, MG #### [facility] [address] [place] [address] Dr. Brea Causey PLT 243 103/ul Normal 150-450 [facility] Comment on above: Performed By: #### U CLINT, CMP, LIPID, DBIL, PHOS, MG #### [facility] [address] [place] [address] Dr. Brea Causey RBC 4.13 106/ul Critically low 4.70-6.10 [facility] Comment on above: Performed By: #### U CLINT, CMP, LIPID, DBIL, PHOS, MG #### [facility] [address] [address] [address] Brea Causey WBC 6.7 103/ul Normal 4.0-11.0 [facility] Comment on above: Performed By: #### U CLINT, CMP, LIPID, DBIL, PHOS, MG #### [facility] [address] [address] [address] Brea Causey LIPID PROFILEon 01-04-2022 CHOL-HDL RATIO NORM SEE BELOW Normal [facility] Comment on above: Result Comment: 3.3 - 4.4 LOW RISK 4.4 - 7.1 AVERAGE RISK 7.1 - 11.0 MODERATE RISK >11.0 HIGH RISK Performed By: #### U CLINT, CMP, LIPID, DBIL, PHOS, MG #### [facility] [address] [address] [address] Brea Causey Cholesterol [Mass/Vol] 81 mg/dL Normal <=200 Th [facility] Comment on above: Performed By: #### U CLINT, CMP, LIPID, DBIL, PHOS, MG #### [facility] [address] [address] [address] Brea Causey Cholesterol in HDL [Mass/Vol] 43 mg/dL Normal 40-60 [facility] Comment on above: Performed By: #### U CLINT, CMP, LIPID, DBIL, PHOS, MG #### [facility] [address] [address] [address] Brea Causey Cholesterol in LDL [Mass/Vol] 26.0 mg/dL Normal [facility] Comment on above: Performed By: #### U CLINT, CMP, LIPID, DBIL, PHOS, MG #### [facility] [address] [address] [address] Brea Causey Cholesterol.total/Chol esterol in HDL [Mass ratio] 1.9 {ratio} Normal [facility] Comment on above: Performed By: #### U CLINT, CMP, LIPID, DBIL, PHOS, MG #### [facility] [address] [address] [address] Brea Causey HDL NORMAL > or = 60 mg/dl - LO W CARDIOVASCULAR RISK <40 mg/dl - HIGH CARDIOVASCULAR RISK Normal [facility] Comment on above: Performed By: #### U CLINT, CMP, LIPID, DBIL, PHOS, MG #### [facility] [address] [address] [address] Brea Causey LDL CALC NORMAL SEE BELOW Normal [facility] Comment on above: Result Comment: <100 mg/dl OPTIMAL 100 - 129 mg/dl NEAR OR ABOVE OPTIMAL 130 - 159 mg/dl BORDERLINE HIGH 160 - 189 mg/dl HIGH >190 mg/dl VERY HIGH Performed By: #### U CLINT, CMP, LIPID, DBIL, PHOS, MG #### [facility] [address] [place] [address] Dr. Brea Causey Triglyceride [Mass/Vol] 60 mg/dL Normal <=150 [facility] Comment on above: Performed By: #### U CLINT, CMP, LIPID, DBIL, PHOS, MG #### [facility] [address] [address] [address] Brea Causey VLDL CALC 12.0 mg/dL Normal [facility] Comment on above: Performed By: #### U CLINT, CMP, LIPID, DBIL, PHOS, MG #### [facility] [address] [address] [address] Brea Causey MAGNESIUMon 01-04-2022 Magnesium [Mass/Vol] 1.4 mg/dL Critically low 1.8-2.4 [facility] Comment on above: Performed By: #### U CLINT, CMP, LIPID, DBIL, PHOS, MG #### [facility] [address] [address] [address] Brea Causey PHOSPHORUSon 01-04-2022 Phosphate [Mass/Vol] 4.4 mg/dL Normal 2.6-4.7 [facility] Comment on above: Performed By: #### U CLINT, CMP, LIPID, DBIL, PHOS, MG #### [facility] [address] [place] [address] Dr. Brea Causey PROF 14(COMP METB)on 022 Albumin [Mass/Vol] 3.9 g/dL Normal 3.4-5.0 [facility] Comment on above: Performed By: #### U CLINT, CMP, LIPID, DBIL, PHOS, MG #### [facility] [address] [place] [address] Dr. Brea Causey Albumin/Globulin [Mass ratio] 1.2 {ratio} Normal [facility] Comment on above: Performed By: #### U CLINT, CMP, LIPID, DBIL, PHOS, MG #### [facility] [address] [place] [address] Dr. Brea Causey ALP [Catalytic activity/Vol] 155 U/L Critically high 46-116 [facility] Comment on above: Performed By: #### U CLINT, CMP, LIPID, DBIL, PHOS, MG #### [facility] [address] [place] [address] Dr. Brea Causey ALT [Catalytic activity/Vol] 27 U/L Normal 16-63 [facility] Comment on above: Performed By: #### U CLINT, CMP, LIPID, DBIL, PHOS, MG #### [facility] [address] [place] [address] Dr. Brea Causey Anion gap [Moles/Vol] 14.6 mmol/L Normal [facility] Comment on above: Performed By: #### U CLINT, CMP, LIPID, DBIL, PHOS, MG #### [facility] [address] [place] [address] Dr. Brea Causey AST [Catalytic activity/Vol] 17 U/L Normal 15-37 [facility] Comment on above: Performed By: #### U CLINT, CMP, LIPID, DBIL, PHOS, MG #### [facility] [address] [place] [address] Dr. Brea Causey Bilirubin [Mass/Vol] 0.3 mg/dL Normal 0.2-1.0 [facility] Comment on above: Performed By: #### U CLINT, CMP, LIPID, DBIL, PHOS, MG #### [facility] [address] [address] [address] Brea Causey Calcium [Mass/Vol] 8.1 mg/dL Critically low 8.5-10.1 [facility] Comment on above: Performed By: #### U CLINT, CMP, LIPID, DBIL, PHOS, MG #### [facility] [address] [address] [address] Brea Causey Chloride [Moles/Vol] 99 mmol/L Normal 98-107 [facility] Comment on above: Performed By: #### U CLINT, CMP, LIPID, DBIL, PHOS, MG #### [facility] [address] [place] [address] Dr. Brea Causey CO2 [Moles/Vol] 25.0 mmol/L Normal 21.0-32.0 [facility] Comment on above: Performed By: #### U CLINT, CMP, LIPID, DBIL, PHOS, MG #### [facility] [address] [place] [address] Dr. Brea Causey Creatinine [Mass/Vol] 1.05 mg/dL Normal 0.70-1.30 [facility] Comment on above: Performed By: #### U CLINT, CMP, LIPID, DBIL, PHOS, MG #### [facility] [address] [place] [address] Dr. Brea Causey EGFR-AF SAMMARINESE >60 Normal >=60 [facility] Comment on above: Performed By: #### U CLINT, CMP, LIPID, DBIL, PHOS, MG #### [facility] [address] [place] [address] Dr. Brea Causey EGFR-NON AF SAMMARINESE >60 Normal >=60 [facility] Comment on above: Performed By: #### U CLINT, CMP, LIPID, DBIL, PHOS, MG #### [facility] [address] [place] [address] Dr. Brea Causey Globulin (S) [Mass/Vol] 3.2 g/dL Normal [facility] Comment on above: Performed By: #### U CLINT, CMP, LIPID, DBIL, PHOS, MG #### [facility] [address] [address] [address] Brea Causey Glucose [Mass/Vol] 177 mg/dL Critically high 74-106 T [facility] Comment on above: Performed By: #### U CLINT, CMP, LIPID, DBIL, PHOS, MG #### [facility] [address] [address] [address] Brea Causey Potassium [Moles/Vol] 4.6 mmol/L Normal 3.5-5.1 [facility] Comment on above: Performed By: #### U CLINT, CMP, LIPID, DBIL, PHOS, MG #### [facility] [address] [place] [address] Dr. Brea Causey Protein [Mass/Vol] 7.1 g/dL Normal 6.4-8.2 [facility] Comment on above: Performed By: #### U CLINT, CMP, LIPID, DBIL, PHOS, MG #### [facility] [address] [place] [address] Dr. Brea Causey Sodium [Moles/Vol] 134 mmol/L Critically low 136-145 Th [facility] Comment on above: Performed By: #### U CLINT, CMP, LIPID, DBIL, PHOS, MG #### [facility] [address] [place] [address] Dr. Brea Causey Urea nitrogen [Mass/Vol] 14.0 mg/dL Normal 7.0-18.0 [facility] Comment on above: Performed By: #### U CLINT, CMP, LIPID, DBIL, PHOS, MG #### [facility] [address] [place] [address] Dr. Bera Causey Urea nitrogen/Creatinine [Mass ratio] 13.3 mg/mg Normal [facility] Comment on above: Performed By: #### U CLINT, CMP, LIPID, DBIL, PHOS, MG #### [facility] [address] [place] [address] Dr. Brea Causey URIC ACID SERUMon 01-04-2022 Urate [Mass/Vol] 7.6 mg/dL Critically high 3.5-7.2 [facility] Comment on above: Performed By: #### U CLINT, CMP, LIPID, DBIL, PHOS, MG #### [facility] [address] [place] [address] Dr. Brea Causey BK VIRUS PCR QUANTon 022 BKV DNA QUANT PCR PLASMA Negative Normal Negative [facility] Comment on above: Result Comment: No B K DNA detected. . The linear range of the assay is 22 - 100,000,000 IU/mL. Performed By: #### B KVIRUS #### [facility] [address] [address] [address] Brea Causey Log10 BKV DNA Plasma Normal [facility] Comment on above: Performed By: #### B KVIRUS #### [facility] [address] [place] [address] Dr. Brea Causey FK506 (TACROLIMUS) WHOLE BLO ODon 12-03-2021 Tacrolimus (FK506), Blood 5.6 ng/mL Normal 2.0-20.0 [facility] Comment on above: Result Comment: Trou gh (immediately following transplant) 15.0 . Trough (steady state, 2 weeks or more after transplant): 3.0 - 8.0 . Performed by LC-MS/MS technology. Performed By: #### U CLINT, CMP, LIPID, DBIL, PHOS, MG #### [facility] [address] [place] [address] Dr. Brea Causey TESTOSTERONE, FREE,DIRECT, T OTALon 12-03-2021 Free Testosterone(Direct) 7.5 pg/mL Normal 6.6-18.1 [facility] Comment on above: Result Comment: Perf ormed at: BN Performed By: #### U CLINT, CMP, LIPID, DBIL, PHOS, MG #### [facility] [address] [place] [address] Dr. Brea Causey Testosterone [Mass/Vol] 467 ng/dL Normal 264-916 [facility] Comment on above: Result Comment: Adul t male reference interval is based on a population of healthy nonobese males (BMI <30) between 19 and 39 years old. Travison, et.al. JCEM 2017,102;0972-4316. PMID: [id number]. Performed at: CB Performed By: #### U CLINT, CMP, LIPID, DBIL, PHOS, MG #### [facility] [address] [place] [address] Dr. Brea Causey BILIRUBIN CONJUGATED (DIRECT )on 11-30-2021 BILI, CONJUGATED 0.2 mg/dL Normal 0.0-0.2 [facility] Comment on above: Performed By: #### B KVIRUS #### [facility] [address] [place] [address] Dr. Brea Causey CBC AUTO DIFFon 11-30-2021 BASO # 0.0 103/ul Normal 0.0-0.1 [facility] Comment on above: Performed By: #### U CLINT, CMP, LIPID, DBIL, PHOS, MG #### [facility] [address] [place] [address] Dr. Brea Causey Basophils/100 WBC (Bld) 0.6 % Normal 0.2-2.0 [facility] Comment on above: Performed By: #### U CLINT, CMP, LIPID, DBIL, PHOS, MG #### [facility] [address] [place] [address] Dr. Brea Causey EO # 0.2 103/ul Normal 0.0-0.7 [facility] Comment on above: Performed By: #### U CLINT, CMP, LIPID, DBIL, PHOS, MG #### [facility] [address] [place] [address] Dr. Brea Causey Eosinophils/100 WBC (Bld) 2.7 % Normal 0.9-7.0 [facility] Comment on above: Performed By: #### U CLINT, CMP, LIPID, DBIL, PHOS, MG #### [facility] [address] [place] [address] Dr. Brea Causey Erythrocyte distribution width (RBC) [Ratio] 13.0 % Normal 11.0-15.0 [facility] Comment on above: Performed By: #### U CLINT, CMP, LIPID, DBIL, PHOS, MG #### [facility] [address] [place] [address] Dr. Brea Causey Hematocrit (Bld) [Volume fraction] 37.6 % Critically low 42.0-54.0 [facility] Comment on above: Performed By: #### U CLINT, CMP, LIPID, DBIL, PHOS, MG #### [facility] [address] [place] [address] Dr. Brea Causey Hemoglobin (Bld) [Mass/Vol] 12.4 g/dL Critically low 14.0-18.0 [facility] Comment on above: Performed By: #### U CLINT, CMP, LIPID, DBIL, PHOS, MG #### [facility] [address] [place] [address] Dr. Brea Causey IG # 0.06 10e3/ul Critically high 0.00-0.03 [facility] Comment on above: Performed By: #### U CLINT, CMP, LIPID, DBIL, PHOS, MG #### [facility] [address] [place] [address] Dr. Brea Causey IG % 0.9 % Critically high 0.0-0.5 [facility] Comment on above: Performed By: #### U CLINT, CMP, LIPID, DBIL, PHOS, MG #### [facility] [address] [place] [address] Dr. rBea Causey LYMPH # 1.0 103/ul Critically low 1.2-3.8 [facility] Comment on above: Performed By: #### U CLINT, CMP, LIPID, DBIL, PHOS, MG #### [facility] [address] [place] [address] Dr. Brea Causey Lymphocytes/100 WBC (Bld) 14.6 % Critically low 20.5-60.0 [facility] Comment on above: Performed By: #### U CLINT, CMP, LIPID, DBIL, PHOS, MG #### [facility] [address] [place] [address] Dr. Brea Causey MANUAL DIFF REQ NO Normal [facility] Comment on above: Performed By: #### U CLINT, CMP, LIPID, DBIL, PHOS, MG #### [facility] [address] [place] [address] Dr. Brea Causey MCH (RBC) [Entitic mass] 29.4 pg Normal 25.9-34.0 [facility] Comment on above: Performed By: #### U CLINT, CMP, LIPID, DBIL, PHOS, MG #### [facility] [address] [place] [address] Dr. Brea Causey MCHC (RBC) [Mass/Vol] 33.0 g/dL Normal 29.9-35.2 [facility] Comment on above: Performed By: #### U CLINT, CMP, LIPID, DBIL, PHOS, MG #### [facility] [address] [place] [address] Dr. Brea Causey MCV (RBC) [Entitic vol] 89.1 fL Normal 80.0-94.0 [facility] Comment on above: Performed By: #### U CLINT, CMP, LIPID, DBIL, PHOS, MG #### [facility] [address] [place] [address] Dr. Brea Causey MONO # 0.7 103/ul Normal 0.3-0.8 [facility] Comment on above: Performed By: #### U CLINT, CMP, LIPID, DBIL, PHOS, MG #### [facility] [address] [place] [address] Dr. Brea Causey Monocytes/100 WBC (Bld) 10.0 % Normal 1.7-12.0 [facility] Comment on above: Performed By: #### U CLINT, CMP, LIPID, DBIL, PHOS, MG #### [facility] [address] [place] [address] Dr. Brea Causey NEUT # 4.8 103/ul Normal 1.4-6.5 [facility] Comment on above: Performed By: #### U CLINT, CMP, LIPID, DBIL, PHOS, MG #### [facility] [address] [place] [address] Dr. Brea Causey Neutrophils/100 WBC (Bld) 71.2 % Normal 43.0-75.0 [facility] Comment on above: Performed By: #### U CLINT, CMP, LIPID, DBIL, PHOS, MG #### [facility] [address] [address] [address] Brea Causey Platelet mean volume (Bld) [Entitic vol] 9.0 fL Critically low 9.5-13.5 [facility] Comment on above: Performed By: #### U CLINT, CMP, LIPID, DBIL, PHOS, MG #### [facility] [address] [address] [address] Brea Causey PLT 280 103/ul Normal 150-450 [facility] Comment on above: Performed By: #### U CLINT, CMP, LIPID, DBIL, PHOS, MG #### [facility] [address] [place] [address] Dr. Brea Causey RBC 4.22 106/ul Critically low 4.70-6.10 [facility] Comment on above: Performed By: #### U CLINT, CMP, LIPID, DBIL, PHOS, MG #### [facility] [address] [address] [address] Brea Causey WBC 6.7 103/ul Normal 4.0-11.0 [facility] Comment on above: Performed By: #### U CLINT, CMP, LIPID, DBIL, PHOS, MG #### [facility] [address] [place] [address] Dr. Brea Causey GLYCOHEMOGLOBIN A1Con 2021 ADA RECOMMENDATION SEE BELOW Normal [facility] Comment on above: Result Comment: ADA RECOMMENDED LIMIT 4.0 - 6.0 ADA THERAPEUTIC TARGET < 7.0 ACTION SUGGESTED > 7.0 Performed By: #### B KVIRUS #### [facility] [address] [place] [address] Dr. Brea Causey Glucose [Mass/Vol] 171 mg/dL Normal [facility] Comment on above: Performed By: #### B KVIRUS #### [facility] [address] [address] [address] Brea Causey HbA1c (Bld) [Mass fraction] 7.6 % Critically high 4.5-6.2 [facility] Comment on above: Performed By: #### B KVIRUS #### [facility] [address] [place], [place] [address] Dr. Brea Causey LIPID PROFILEon 11-30-2021 CHOL-HDL RATIO NORM SEE BELOW Normal [facility] Comment on above: Result Comment: 3.3 - 4.4 LOW RISK 4.4 - 7.1 AVERAGE RISK 7.1 - 11.0 MODERATE RISK >11.0 HIGH RISK Performed By: #### C BC #### [facility] [address] [place], [place] [address] Dr. Brea Causey Cholesterol [Mass/Vol] 75 mg/dL Normal <=200 [facility] Comment on above: Performed By: #### C BC #### [facility] [id number] Brea Causey Cholesterol in HDL [Mass/Vol] 41 mg/dL Normal 40-60 [facility] Comment on above: Performed By: #### C BC #### [facility] [address] [place], [place] [address] Dr. Brea Causey Cholesterol in LDL [Mass/Vol] 18.6 mg/dL Normal [facility] Comment on above: Performed By: #### C BC #### [facility] [address] [place], [place] [address] Dr. Brea Causey Cholesterol.total/Chol esterol in HDL [Mass ratio] 1.8 {ratio} Normal [facility] Comment on above: Performed By: #### C BC #### [facility] [address] [place], [place] [address] Dr. Brea Causey HDL NORMAL > or = 60 mg/dl - LO W CARDIOVASCULAR RISK <40 mg/dl - HIGH CARDIOVASCULAR RISK Normal [facility] Comment on above: Performed By: #### C BC #### [facility] [address] [place], [place] [address] Dr. Brea Causey LDL CALC NORMAL SEE BELOW Normal [facility] Comment on above: Result Comment: <100 mg/dl OPTIMAL 100 - 129 mg/dl NEAR OR ABOVE OPTIMAL 130 - 159 mg/dl BORDERLINE HIGH 160 - 189 mg/dl HIGH >190 mg/dl VERY HIGH Performed By: #### C BC #### [facility] [address] [place] [address] Dr. Brea Causey Triglyceride [Mass/Vol] 77 mg/dL Normal <=150 [facility] Comment on above: Performed By: #### C BC #### [facility] [address] [place] [address] Dr. Brea Causey VLDL CALC 15.4 mg/dL Normal [facility] Comment on above: Performed By: #### C BC #### [facility] [address] [place] [address] Dr. Brea Causey MAGNESIUMon 11-30-2021 Magnesium [Mass/Vol] 1.4 mg/dL Critically low 1.8-2.4 [facility] Comment on above: Performed By: #### B KVIRUS #### [facility] [address] [place] [address] Dr. Brea Causey PHOSPHORUSon 11-30-2021 Phosphate [Mass/Vol] 4.1 mg/dL Normal 2.6-4.7 [facility] Comment on above: Performed By: #### C BC #### [facility] [address] [place] [address] Dr. Brea Causey PROF 14(COMP METB)on 022 Albumin [Mass/Vol] 4.2 g/dL Normal 3.4-5.0 [facility] Comment on above: Performed By: #### C BC #### [facility] [address] [place] [address] Dr. Brea Causey Albumin/Globulin [Mass ratio] 1.3 {ratio} Normal [facility] Comment on above: Performed By: #### C BC #### [facility] [address] [place] [address] Dr. Brea Causey ALP [Catalytic activity/Vol] 148 U/L Critically high 46-116 [facility] Comment on above: Performed By: #### C BC #### [facility] [address] [place] [address] Dr. Brea Causey ALT [Catalytic activity/Vol] 36 U/L Normal 16-63 [facility] Comment on above: Performed By: #### C BC #### [facility] [address] [address] [address] Brea Causey Anion gap [Moles/Vol] 14.7 mmol/L Normal [facility] Comment on above: Performed By: #### C BC #### [facility] [address] [address] [address] Brea Causey AST [Catalytic activity/Vol] 21 U/L Normal 15-37 [facility] Comment on above: Performed By: #### C BC #### [facility] [address] [address] [address] Brea Causey Bilirubin [Mass/Vol] 0.4 mg/dL Normal 0.2-1.0 [facility] Comment on above: Performed By: #### C BC #### [facility] [address] [place] [address] Dr. Brea Causey Calcium [Mass/Vol] 8.3 mg/dL Critically low 8.5-10.1 [facility] Comment on above: Performed By: #### C BC #### [facility] [address] [address] [address] Brea Causey Chloride [Moles/Vol] 98 mmol/L Normal 98-107 [facility] Comment on above: Performed By: #### C BC #### [facility] [address] [address] [address] Brea Causey CO2 [Moles/Vol] 27.2 mmol/L Normal 21.0-32.0 [facility] Comment on above: Performed By: #### C BC #### [facility] [address] [address] [address] Brea Causey Creatinine [Mass/Vol] 1.10 mg/dL Normal 0.70-1.30 [facility] Comment on above: Performed By: #### C BC #### [facility] [address] [address] [address] Brea Causey EGFR-AF SAMMARINESE >60 Normal >=60 [facility] Comment on above: Performed By: #### C BC #### [facility] [address] [address] [address] Brea Causey EGFR-NON AF SAMMARINESE >60 Normal >=60 [facility] Comment on above: Performed By: #### C BC #### [facility] [address] [address] [address] Brea Causey Globulin (S) [Mass/Vol] 3.2 g/dL Normal [facility] Comment on above: Performed By: #### C BC #### [facility] [address] [address] [address] Brea Causey Glucose [Mass/Vol] 173 mg/dL Critically high 74-106 T [facility] Comment on above: Performed By: #### C BC #### [facility] [address] [place] [address] Dr. Brea Causey Potassium [Moles/Vol] 4.9 mmol/L Normal 3.5-5.1 [facility] Comment on above: Performed By: #### C BC #### [facility] [address] [place] [address] Dr. Brea Causey Protein [Mass/Vol] 7.4 g/dL Normal 6.4-8.2 [facility] Comment on above: Performed By: #### C BC #### [facility] [address] [place] [address] Dr. Brea Causey Sodium [Moles/Vol] 135 mmol/L Critically low 136-145 Th [facility] Comment on above: Performed By: #### C BC #### [facility] [address] [place] [address] Dr. Brea Causey Urea nitrogen [Mass/Vol] 14.0 mg/dL Normal 7.0-18.0 [facility] Comment on above: Performed By: #### C BC #### [facility] [address] [place] [address] Dr. Brea Causey Urea nitrogen/Creatinine [Mass ratio] 12.7 mg/mg Normal [facility] Comment on above: Performed By: #### C BC #### [facility] [address] [place] [address] Dr. Brea Causey URIC ACID SERUMon 11-30-2021 Urate [Mass/Vol] 7.8 mg/dL Critically high 3.5-7.2 [facility] Comment on above: Performed By: #### C BC #### [facility] [address] [place] [address] Dr. Brea Causey BNPon 11-14-2021 Natriuretic peptide B (Bld) [Mass/Vol] 350.0 pg/mL Normal <=900.0 [facility] Comment on above: Performed By: #### C BC #### [facility] [address] [place] [address] Dr. Brea Causey CBC AUTO DIFFon 11-14-2021 BASO # 0.0 103/ul Normal 0.0-0.1 [facility] Comment on above: Performed By: #### C BC #### [facility] [address] [place] [address] Dr. Brea Causey Basophils/100 WBC (Bld) 0.1 % Critically low 0.2-2.0 [facility] Comment on above: Performed By: #### C BC #### [facility] [address] [place] [address] Dr. Brea Causey EO # 0.2 103/ul Normal 0.0-0.7 [facility] Comment on above: Performed By: #### C BC #### [facility] [address] [place] [address] Dr. Brea Causey Eosinophils/100 WBC (Bld) 1.4 % Normal 0.9-7.0 [facility] Comment on above: Performed By: #### C BC #### [facility] [address] [place] [address] Dr. Brea Causey Erythrocyte distribution width (RBC) [Ratio] 13.1 % Normal 11.0-15.0 [facility] Comment on above: Performed By: #### C BC #### [facility] [address] [place] [address] Dr. Brea Causey Hematocrit (Bld) [Volume fraction] 39.4 % Critically low 42.0-54.0 [facility] Comment on above: Performed By: #### C BC #### [facility] [address] [place] [address] Dr. Brea Causey Hemoglobin (Bld) [Mass/Vol] 13.2 g/dL Critically low 14.0-18.0 [facility] Comment on above: Performed By: #### C BC #### [facility] [address] [place] [address] Dr. Brea Causey IG # 0.11 10e3/ul Critically high 0.00-0.03 [facility] Comment on above: Performed By: #### C BC #### [facility] [address] [place] [address] Dr. Brea Causey IG % 0.6 % Critically high 0.0-0.5 [facility] Comment on above: Performed By: #### C BC #### [facility] [address] [place] [address] Dr. Brea Causey LYMPH # 1.1 103/ul Critically low 1.2-3.8 [facility] Comment on above: Performed By: #### C BC #### [facility] [address] [place] [address] Dr. Brea Causey Lymphocytes/100 WBC (Bld) 6.7 % Critically low 20.5-60.0 [facility] Comment on above: Performed By: #### C BC #### [facility] [address] [place] [address] Dr. Brea Causey MANUAL DIFF REQ NO Normal [facility] Comment on above: Performed By: #### C BC #### [facility] [address] [place] [address] Dr. Brea Causey MCH (RBC) [Entitic mass] 29.5 pg Normal 25.9-34.0 [facility] Comment on above: Performed By: #### C BC #### [facility] [address] [place] [address] Dr. Brea Causey MCHC (RBC) [Mass/Vol] 33.5 g/dL Normal 29.9-35.2 [facility] Comment on above: Performed By: #### C BC #### [facility] [address] [address] [address] Brea Causey MCV (RBC) [Entitic vol] 88.1 fL Normal 80.0-94.0 [facility] Comment on above: Performed By: #### C BC #### [facility] [address] [address] [address] Brea Causey MONO # 1.5 103/ul Critically high 0.3-0.8 [facility] Comment on above: Performed By: #### C BC #### [facility] [address] [address] [address] Brea Causey Monocytes/100 WBC (Bld) 8.6 % Normal 1.7-12.0 [facility] Comment on above: Performed By: #### C BC #### [facility] [address] [address] [address] Brea Causey NEUT # 14.0 103/ul Critically high 1.4-6.5 [facility] Comment on above: Performed By: #### C BC #### [facility] [address] [address] [address] Brea Causey Neutrophils/100 WBC (Bld) 82.6 % Critically high 43.0-75.0 [facility] Comment on above: Performed By: #### C BC #### [facility] [address] [address] [address] Brea Causey Platelet mean volume (Bld) [Entitic vol] 9.5 fL Normal 9.5-13.5 [facility] Comment on above: Performed By: #### C BC #### [facility] [address] [address] [address] Brea Causey PLT 303 103/ul Normal 150-450 [facility] Comment on above: Performed By: #### C BC #### [facility] [address] [address] [address] Brea Causey RBC 4.47 106/ul Critically low 4.70-6.10 [facility] Comment on above: Performed By: #### C BC #### [facility] [address] [place] [address] Dr. Brea Causey WBC 17.0 103/ul Critically high 4.0-11.0 [facility] Comment on above: Performed By: #### C BC #### [facility] [address] [address] [address] Brea Causey Covid-19 PCR ([facility])on SARS-CoV-2 (COVID-19) RNA ISI+probe Ql (Unsp spec) Not detected Normal NOT DETECTED [facility] Comment on above: Result Comment: [...] for this test is supported by the [employer] and [employer]'s declaration that [...] CLINT, CMP, LIPID, DBIL, PHOS, MG #### [facility] [address] [place] [address] Dr. Brea Causey ER URINE PROFILEon 2 Bilirubin Ql (U) Negative Normal NEGATIVE [facility] Comment on above: Performed By: #### U CLINT, CMP, LIPID, DBIL, PHOS, MG #### [facility] [address] [place] [address] Dr. Brea Causey Clarity (U) CLEAR Normal CLEAR [facility] Comment on above: Performed By: #### U CLINT, CMP, LIPID, DBIL, PHOS, MG #### [facility] [address] [address] [address] Brea Causey Color (U) YELLOW Normal YELLOW [facility] Comment on above: Performed By: #### U CLINT, CMP, LIPID, DBIL, PHOS, MG #### [facility] [address] [address] [address] Brea GORDON A micrscopic examination will be performed if indicated. Normal [facility] Comment on above: Performed By: #### U CLINT, CMP, LIPID, DBIL, PHOS, MG #### [facility] [address] [address] [address] Brea Causey Glucose Ql (U) Negative Normal NEGATIVE [facility] Comment on above: Performed By: #### U CLINT, CMP, LIPID, DBIL, PHOS, MG #### [facility] [address] [place] [address] Dr. Brea Causey Hemoglobin Ql (U) Negative Normal NEGAT[facility] Comment on above: Performed By: #### U CLINT, CMP, LIPID, DBIL, PHOS, MG #### [facility] [address] [address] [address] Brea Causey Ketones Ql (U) Negative Normal NEGATIVE [facility] Comment on above: Performed By: #### U CLINT, CMP, LIPID, DBIL, PHOS, MG #### [facility] [address] [place] [address] Dr. Brea Causey LEUKOCYTES Negative Normal NEGATIVE [facility] Comment on above: Performed By: #### U CLINT, CMP, LIPID, DBIL, PHOS, MG #### [facility] [address] [address] [address] Brea Causey Nitrite Ql (U) Negative Normal NEGATIVE [facility] Comment on above: Performed By: #### U CLINT, CMP, LIPID, DBIL, PHOS, MG #### [facility] [address] [address] [address] Brea Causey pH (U) 6.0 [pH] Normal 5-9 [facility] Comment on above: Performed By: #### U CLINT, CMP, LIPID, DBIL, PHOS, MG #### [facility] [address] [place] [address] Dr. Brea Causey SPEC GRAVITY <=1.005 Abnormal 1.005-<=1.025 [facility] Comment on above: Performed By: #### U CLINT, CMP, LIPID, DBIL, PHOS, MG #### [facility] [address] [place] [address] Dr. Brea Causey UA PROTEIN Negative Normal NEGATIVE/ TRACE [facility] Comment on above: Performed By: #### U CLINT, CMP, LIPID, DBIL, PHOS, MG #### [facility] [address] [place] [address] Dr. Brea Causey UR MICRO IND NOT INDICATED Normal [facility] Comment on above: Performed By: #### U CLINT, CMP, LIPID, DBIL, PHOS, MG #### [facility] [address] [place] [address] Dr. Brea Causey Urobilinogen Qn (U) 0.2 {Sabine'U}/dL Normal 0.2 - 1. 0 [facility] Comment on above: Performed By: #### U CLINT, CMP, LIPID, DBIL, PHOS, MG #### [facility] [address] [place] [address] Dr. Brea Causey GI PANEL (PCR)on 11-14-2021 Adenovirus F 40/41 Not detected Normal NOT DETECTED [facility] Comment on above: Performed By: #### U CLINT, CMP, LIPID, DBIL, PHOS, MG #### [facility] [address] [place] [address] Dr. Brea Causey Astrovirus Not detected Normal NOT DETECTED [facility] Comment on above: Performed By: #### U CLINT, CMP, LIPID, DBIL, PHOS, MG #### [facility] [address] [place] [address] Dr. Brea Causey C. Diff toxin A/B Not detected Normal NOT DETECTED [facility] Comment on above: Performed By: #### U CLINT, CMP, LIPID, DBIL, PHOS, MG #### [facility] [address] [address] [address] Brea Causey Campylobacter Not detected Normal NOT DETECTED [facility] Comment on above: Performed By: #### U CLINT, CMP, LIPID, DBIL, PHOS, MG #### [facility] [address] [address] [address] Brea Causey Cryptosporidium Not detected Normal NOT DETECTED [facility] Comment on above: Performed By: #### U CLINT, CMP, LIPID, DBIL, PHOS, MG #### [facility] [address] [address] [address] Brea Causey Cyclos. Cayetanensis Not detected Normal NOT DETECTED [facility] Comment on above: Performed By: #### U CLINT, CMP, LIPID, DBIL, PHOS, MG #### [facility] [address] [address] [address] Brea Causey E. Coli O157 Not Applicable Normal Not Applicable [facility] Comment on above: Performed By: #### U CLINT, CMP, LIPID, DBIL, PHOS, MG #### [facility] [address] [address] [address] Brea Causye E. histolytica Not detected Normal NOT DETECTED [facility] Comment on above: Performed By: #### U CLINT, CMP, LIPID, DBIL, PHOS, MG #### [facility] [address] [place] [address] Dr. Brea Causey EAEC Not detected Normal NOT DETECTED [facility] Comment on above: Performed By: #### U CLINT, CMP, LIPID, DBIL, PHOS, MG #### [facility] [address] [address] [address] Brea Causey EIEC Not detected Normal NOT DETECTED [facility] Comment on above: Performed By: #### U CLINT, CMP, LIPID, DBIL, PHOS, MG #### [facility] [address] [address] [address] Brea Causey EPEC Not detected Normal NOT DETECTED [facility] Comment on above: Performed By: #### U CLINT, CMP, LIPID, DBIL, PHOS, MG #### [facility] [address] [address] [address] Brea Causey ETEC Not detected Normal NOT DETECTED [facility] Comment on above: Performed By: #### U CLINT, CMP, LIPID, DBIL, PHOS, MG #### [facility] [address] [address] [address] Brea Tolbert Lamblia Not detected Normal NOT DETECTED [facility] Comment on above: Performed By: #### U CLINT, CMP, LIPID, DBIL, PHOS, MG #### [facility] [address] [address] [address] Brea LEZAMA CONTROLS PASSED Normal [facility] Comment on above: Performed By: #### U CLINT, CMP, LIPID, DBIL, PHOS, MG #### [facility] [address] [address] [address] Brea D[facility]EN [facility] HEADER GI PANEL BACTERIA Normal [facility] Comment on above: Performed By: #### U CLINT, CMP, LIPID, DBIL, PHOS, MG #### [facility] [address] [address] [address] Brea PINTO ECOLI GI PANEL DIARRHEAGENIC E.COLI / SHIGELLA Normal [facility] Comment on above: Performed By: #### U CLINT, CMP, LIPID, DBIL, PHOS, MG #### [facility] [address] [address] [address] Brea PINTO INFO SEE BELOW [facility] Comment on above: Result Comment: EAEC - Enteroaggregative E. Coli EPEC- Enteropathogenic E. Coli ETEC- Enterotoxigenic E. Coli lt/st STEC- Shigella-like toxin-producing E. Coli stx1/stx2 EIEC- Shigella/Enteroinvasive E. Coli Performed By: #### U CLINT, CMP, LIPID, DBIL, PHOS, MG #### [facility] [address] [address] [address] Brea PINTO PARASITES GI PANEL PARASITES Normal [facility] Comment on above: Performed By: #### U CLINT, CMP, LIPID, DBIL, PHOS, MG #### [facility] [address] [address] [address] Brea Causey [facility] VIRUS GI PANEL VIRUSES Normal [facility] Comment on above: Performed By: #### U CLINT, CMP, LIPID, DBIL, PHOS, MG #### [facility] [address] [address] [address] Brea Causey Norovirus GI/GII Not detected Normal NOT DETECTED [facility] Comment on above: Performed By: #### U CLINT, CMP, LIPID, DBIL, PHOS, MG #### [facility] [address] [address] [address] Brea Butcher Shigelloides Not detected Normal NOT DETECTED [facility] Comment on above: Performed By: #### U CLINT, CMP, LIPID, DBIL, PHOS, MG #### [facility] [address] [place] [address] Dr. Brea Causey Rotavirus A Not detected Normal NOT DETECTED [facility] Comment on above: Performed By: #### U CLINT, CMP, LIPID, DBIL, PHOS, MG #### [facility] [address] [place] [address] Dr. Brea Causey Salmonella Not detected Normal NOT DETECTED [facility] Comment on above: Performed By: #### U CLINT, CMP, LIPID, DBIL, PHOS, MG #### [facility] [address] [place] [address] Dr. Brea Causey Sapovirus Not detected Normal NOT DETECTED [facility] Comment on above: Performed By: #### U CLINT, CMP, LIPID, DBIL, PHOS, MG #### [facility] [address] [place] [address] Dr. Brea Causey STEC Not detected Normal NOT DETECTED [facility] Comment on above: Performed By: #### U CLINT, CMP, LIPID, DBIL, PHOS, MG #### [facility] [address] [address] [address] Brea Causey Vibrio Not detected Normal NOT DETECTED [facility] Comment on above: Performed By: #### U CLINT, CMP, LIPID, DBIL, PHOS, MG #### [facility] [address] [place] [address] Dr. Brea Causey Vibrio Cholera Not detected Normal NOT DETECTED [facility] Comment on above: Performed By: #### U CLINT, CMP, LIPID, DBIL, PHOS, MG #### [facility] [address] [place] [address] Dr. Brea Causey Y. Enterocolitica Not detected Normal NOT DETECTED [facility] Comment on above: Performed By: #### U CLINT, CMP, LIPID, DBIL, PHOS, MG #### [facility] [address] [place] [address] Dr. Brea Causey PROF 14(COMP METB)on 022 Albumin [Mass/Vol] 4.0 g/dL Normal 3.4-5.0 [facility] Comment on above: Performed By: #### C BC #### [facility] [address] [place] [address] Dr. Brea Causey Albumin/Globulin [Mass ratio] 1.3 {ratio} Normal [facility] Comment on above: Performed By: #### C BC #### [facility] [address] [place] [address] Dr. Brea Causey ALP [Catalytic activity/Vol] 142 U/L Critically high 46-116 [facility] Comment on above: Performed By: #### C BC #### [facility] [address] [place] [address] Dr. Brea Causey ALT [Catalytic activity/Vol] 39 U/L Normal 16-63 [facility] Comment on above: Performed By: #### C BC #### [facility] [address] [place] [address] Dr. Brea Causey Anion gap [Moles/Vol] 13.6 mmol/L Normal [facility] Comment on above: Performed By: #### C BC #### [facility] [address] [place] [address] Dr. Brea Causey AST [Catalytic activity/Vol] 23 U/L Normal 15-37 [facility] Comment on above: Performed By: #### C BC #### [facility] [address] [place] [address] Dr. Brea Causey Bilirubin [Mass/Vol] 0.4 mg/dL Normal 0.2-1.0 [facility] Comment on above: Performed By: #### C BC #### [facility] [address] [place] [address] Dr. Brea Causey Calcium [Mass/Vol] 8.4 mg/dL Critically low 8.5-10.1 Th e [facility] Comment on above: Performed By: #### C BC #### [facility] [address] [place] [address] Dr. Brea Causey Chloride [Moles/Vol] 97 mmol/L Critically low 98-107 [facility] Comment on above: Performed By: #### C BC #### [facility] [address] [place] [address] Dr. Brea Causey CO2 [Moles/Vol] 26.1 mmol/L Normal 21.0-32.0 [facility] Comment on above: Performed By: #### C BC #### [facility] [address] [place] [address] Dr. Brea Causey Creatinine [Mass/Vol] 1.21 mg/dL Normal 0.70-1.30 [facility] Comment on above: Performed By: #### C BC #### [facility] [address] [place] [address] Dr. Brea Causey EGFR-AF SAMMARINESE >60 Normal >=60 [facility] Comment on above: Performed By: #### C BC #### [facility] [address] [place] [address] Dr. Brea Causey EGFR-NON AF SAMMARINESE 59 mL/min/1.73m2 Critically low >=60 [facility] Comment on above: Performed By: #### C BC #### [facility] [address] [place] [address] Dr. Brea Causey Globulin (S) [Mass/Vol] 3.2 g/dL Normal [facility] Comment on above: Performed By: #### C BC #### [facility] [address] [address] [address] Brea Causey Glucose [Mass/Vol] 227 mg/dL Critically high 74-106 [facility] Comment on above: Performed By: #### C BC #### [facility] [address] [address] [address] Brea Causey Potassium [Moles/Vol] 4.7 mmol/L Normal 3.5-5.1 [facility] Comment on above: Performed By: #### C BC #### [facility] [address] [address] [address] Brea Causey Protein [Mass/Vol] 7.2 g/dL Normal 6.4-8.2 [facility] Comment on above: Performed By: #### C BC #### [facility] [address] [address] [address] Brea Causey Sodium [Moles/Vol] 132 mmol/L Critically low 136-145 Th [facility] Comment on above: Performed By: #### C BC #### [facility] [address] [address] [address] Brea Causey Urea nitrogen [Mass/Vol] 12.0 mg/dL Normal 7.0-18.0 [facility] Comment on above: Performed By: #### C BC #### [facility] [address] [address] [address] Brea Causey Urea nitrogen/Creatinine [Mass ratio] 9.9 mg/mg Normal [facility] Comment on above: Performed By: #### C BC #### [facility] [address] [address] [address] Brea Causey CBC W/DIFFon 10-31-2021 ABS IMM GRANS 0.1 10*3/uL Normal 0.0-0.2 [facility] Comment on above: Performed By: #### 4 5506, 28108, 27283, 09145, 18000, 56270 #### [facility] [address] [place] [address], [facility] ABS NEUTROPHILS 5.9 10*3/uL Normal 1.6-7.6 [facility] Comment on above: Performed By: #### 4 5506, 75606, 17831, 88804, 99216, 17060 #### [facility] [address] [place] [address], [facility] Basophils (Bld) [#/Vol] 0.0 10*3/uL Normal 0.0-0.2 [facility] Comment on above: Performed By: #### 4 5506, 62016, 21312, 95427, 13574, 51846 #### [facility] [address] [facility] [place] [address], [facility] Basophils/100 WBC (Bld) 0.3 % Normal 0.0-1.0 [facility] Comment on above: Performed By: #### 4 5506, 13271, 71559, 64730, 74211, 38314 #### [facility] [address] [facility] [place] [address], [facility] Eosinophils (Bld) [#/Vol] 0.2 10*3/uL Normal 0.0-0.5 [facility] Comment on above: Performed By: #### 4 5506, 19801, 45705, 45093, 49902, 43422 #### [facility] [address] [facility] [place] [address], [facility] Eosinophils/100 WBC (Bld) 2.3 % Normal 0.0-6.0 [facility] Comment on above: Performed By: #### 4 5506, 01011, 26797, 69736, 79386, 79163 #### [facility] [address] [facility] [place] [address], [facility] Erythrocyte distribution width (RBC) [Ratio] 13.4 % Normal 11.5-15.0 [facility] Comment on above: Performed By: #### 4 5506, 18889, 16670, 79074, 67266, 21391 #### [facility] [address] [facility]. [address] Hematocrit (Bld) [Volume fraction] 36.1 % Low 39.0-50.0 [facility] Comment on above: Performed By: #### 4 5506, 81303, 18793, 37797, 86405, 21793 #### [facility] [address] [facility]. [address] Hemoglobin (Bld) [Mass/Vol] 11.9 g/dL Low 13.0-17.0 [facility] Comment on above: Performed By: #### 4 5506, 41620, 58308, 66502, 86978, 71041 #### [facility] [address] [facility]. [address] IMMATURE GRANS 0.7 % Normal 0.0-1.0 [facility] Comment on above: Performed By: #### 4 5506, 17989, 60360, 62268, 85070, 13285 #### [facility] [address] [facility]. [address] Lymphocytes (Bld) [#/Vol] 0.9 10*3/uL Low 1.2-4.0 [facility] Comment on above: Performed By: #### 4 5506, 36197, 01561, 14768, 57859, 33130 #### [facility] [address] [facility]. [address] Lymphocytes/100 WBC (Bld) 12.1 % Low 20.0-45.0 [facility] Comment on above: Performed By: #### 4 5506, 10890, 87171, 31777, 56672, 32690 #### [facility] [address] MCH (RBC) [Entitic mass] 29.3 pg Normal 27.0-33.0 [facility] Comment on above: Performed By: #### 4 5506, 41149, 08551, 46822, 20617, 24288 #### [facility] [address] MCHC (RBC) [Mass/Vol] 33.0 g/dL Normal 32.0-35.0 [facility] Comment on above: Performed By: #### 4 5506, 56909, 16914, 50407, 60164, 59989 #### [facility] [address] MCV (RBC) [Entitic vol] 88.9 fL Normal 82.0-98.0 [facility] Comment on above: Performed By: #### 4 5506, 92220, 10402, 56723, 14053, 58013 #### [facility] [address] Monocytes (Bld) [#/Vol] 0.6 10*3/uL Normal 0.1-1.0 [facility] Comment on above: Performed By: #### 4 5506, 18787, 84215, 86964, 57281, 72869 #### [facility] [address] [facility]. [address] MONOS 8.3 % Normal 5.0-12.0 [facility] Comment on above: Performed By: #### 4 5506, 18798, 18066, 32299, 60674, 56121 #### [facility] [address] [facility]. [address] Neutrophils/100 WBC (Bld) 76.3 % High 40.0-72.0 [facility] Comment on above: Performed By: #### 4 5506, 23161, 74264, 45475, 81703, 30172 #### [facility] [address] Nucleated RBC/100 WBC (Bld) [Ratio] 0 % Normal 0-0 [facility] Comment on above: Performed By: #### 4 5506, 78142, 59427, 09734, 99373, 15313 #### [facility] [address] [place] [address], [facility] PLAT CNT 260 10*3/uL Normal 150-400 [facility] Comment on above: Performed By: #### 4 5506, 30075, 53711, 15904, 02118, 89208 #### [facility] [address] [place] [address], [facility] RBC (Bld) [#/Vol] 4.06 10*6/uL Low 4.20-5.70 [facility] Comment on above: Performed By: #### 4 5506, 07201, 95920, 28403, 04732, 70066 #### [facility] [address] [place] [address], [facility] WBC (Bld) [#/Vol] 7.68 10*3/uL Normal 4.00-10.60 [facility] Comment on above: Performed By: #### 4 5506, 65794, 53351, 56234, 58328, 84505 #### [facility] [address] [facility] [address] COMP METABOLIC PANELon 10-31 Albumin [Mass/Vol] 4.4 g/dL Normal 3.5-5.7 [facility] Comment on above: Performed By: #### 4 5506, 46088, 94961, 65799, 55135, 10094 #### [facility] [address] [place] [address], [facility] ALKALINE PHOSPH 132 IU/L High 34-104 [facility] Comment on above: Performed By: #### 4 5506, 91842, 06706, 43814, 98531, 10058 #### [facility] [address] [place] [address], [facility] ALT [Catalytic activity/Vol] 26 U/L Normal 7-52 [facility] Comment on above: Performed By: #### 4 5506, 66689, 05593, 60589, 94861, 66562 #### [facility] [address] [place] [address], [place] AST [Catalytic activity/Vol] 17 U/L Normal 13-39 [facility] Comment on above: Performed By: #### 4 5506, 94802, 24527, 71643, 90115, 96000 #### [facility] [address] [place] [address], [place] Bilirubin [Mass/Vol] 0.4 mg/dL Normal 0.3-1.0 [facility] Comment on above: Performed By: #### 4 5506, 09196, 08994, 80975, 20465, 17860 #### [facility] [address] [place] [address], [place] Calcium [Mass/Vol] 8.6 mg/dL Normal 8.6-10.3 [facility] Comment on above: Performed By: #### 4 5506, 87147, 43054, 61588, 71370, 72728 #### [facility] [address] [place] [address], [place] Chloride [Moles/Vol] 97 mmol/L Low 98-107 [facility] Comment on above: Performed By: #### 4 5506, 11938, 02995, 01337, 50743, 10385 #### [facility] [address] [place] [address], [place] CO2 [Moles/Vol] 26 mmol/L Normal 21-31 [facility] Comment on above: Performed By: #### 4 5506, 07204, 94698, 65191, 34685, 12530 #### [facility] [address] [place] [address], [place] Creatinine [Mass/Vol] 1.04 mg/dL Normal 0.70-1.30 [facility] Comment on above: Performed By: #### 4 5506, 75728, 95480, 40121, 31031, 71754 #### [facility] [address] [place] [address], [place] GFR/1.73 sq M.predicted among blacks MDRD (S/P/Bld) [Vol rate/Area] mL/min/{1.73_m2} Normal >60 [facility] Comment on above: Performed By: #### 4 5506, 90055, 77259, 29722, 33071, 64091 #### [facility] [address] [place] [address], [place] GFR/1.73 sq M.predicted among non-blacks MDRD (S/P/Bld) [Vol rate/Area] mL/min/{1.73_m2} Normal >60 [facility] Comment on above: Performed By: #### 4 5506, 17853, 88761, 09619, 76067, 06641 #### [facility] [address] [place] [address], [place] Glucose [Mass/Vol] 158 mg/dL High 70-100 [facility] Comment on above: Performed By: #### 4 5506, 28379, 64531, 56281, 73137, 65013 #### [facility] [address] [place] [address], [place] Potassium [Moles/Vol] 4.4 mmol/L Normal 3.5-5.1 [facility] Comment on above: Performed By: #### 4 5506, 33661, 04900, 42646, 51636, 11981 #### [facility] [address] [place] [address], [place] Protein [Mass/Vol] 6.6 g/dL Normal 6.0-8.3 [facility] Comment on above: Performed By: #### 4 5506, 30621, 43800, 57331, 79112, 74790 #### [facility] [address] [place] [address], [facility] Sodium [Moles/Vol] 131 mmol/L Low 136-145 [facility] Comment on above: Performed By: #### 4 5506, 24813, 63982, 74859, 57086, 96001 #### [facility] [address] [place] [address], [facility] Urea nitrogen [Mass/Vol] 15 mg/dL Normal 7-25 [facility] Comment on above: Performed By: #### 4 5506, 69747, 07778, 23266, 16539, 60230 #### [facility] [address] [place] [address], [facility] DIRECT BILIon 10-31-2021 Bilirubin.direct [Mass/Vol] 0.1 mg/dL Normal 0.0-0.2 [facility] Comment on above: Performed By: #### 4 5506, 63137, 18518, 87170, 24579, 43693 #### [facility] [address] [place] [address], [facility] LIPID PROFILEon 10-31-2021 Cholesterol [Mass/Vol] 70 mg/dL Low 120-200 Th e [facility] Comment on above: Result Comment: CHOL ESTEROL REFERENCE RANGE: 20 YEARS AND OLDER CARDIOVASCULAR RISK Less than 200 mg/dl Low Risk 200 to 239 mg/dl Borderline Risk 240 mg/dl and greater High Risk Performed By: #### 4 5506, 62880, 85351, 67630, 93149, 86637 #### [facility] [address] [place] [address], [facility] Cholesterol in HDL [Mass/Vol] 35 mg/dL Normal 23-92 [facility] Comment on above: Result Comment: Slig ht variation in normal range could be due to gender and/or age. HDL CHOLESTEROL REFERENCE RANGE: 20 years and older Cardiovascular Risk > or =60 mg/dL Desirable 40 TO 59 mg/dL Low Risk <40 mg/dL High Risk Performed By: #### 4 5506, 13218, 55868, 53034, 14430, 19575 #### [facility] [address] [place] [address], [facility] Cholesterol in LDL [Mass/Vol] 20 mg/dL Normal 0-130 [facility] Comment on above: Result Comment: LDL IS A CALCULATION LDL IS ONLY VALID IF THE TRIG IS LESS THAN 400. Performed By: #### 4 5506, 01220, 82919, 91988, 84851, 99881 #### [facility] [address] [place] [address], [facility] Cholesterol.total/Chol esterol in HDL [Mass ratio] 2.0 {ratio} Normal .0-4.5 [facility] Comment on above: Performed By: #### 4 5506, 15854, 35920, 92196, 19177, 12744 #### [facility] [address] [place] [address], [facility] NON-HDL CHOLESTEROL 35 mg/dL Normal [facility] Comment on above: Performed By: #### 4 5506, 66736, 15501, 89711, 52137, 33900 #### [facility] [address] [place] [address], [facility] Triglyceride [Mass/Vol] 73 mg/dL Normal 40-149 [facility] Comment on above: Result Comment: TRIG LYCERIDE REFERENCE RANGE: 20 YEARS AND OLDER CARDIOVASCULAR RISK LESS THAN 150 mg/dl LOW RISK 150 TO 199 mg/dl BORDERLINE RISK 200 mg/dl AND GREATER HIGH RISK Performed By: #### 4 5506, 82033, 49077, 12767, 00552, 41260 #### [facility] [address] [place] [address], [facility] VLDL CHOL 15 mg/dL Normal 0-40 [facility] Comment on above: Performed By: #### 4 5506, 87771, 61711, 84434, 63400, 70591 #### [facility] [address] [place] [address], [facility] MAGNESIUM BLOODon 06-22-2022 Magnesium [Mass/Vol] 1.1 mg/dL Critically low 1.9-2.7 [facility] Comment on above: Performed By: #### 4 5506, 73307, 86500, 07701, 67525, 19180 #### [facility] [address] [place] [address], [facility] PHOSPHORUS BLOODon Phosphate [Mass/Vol] 3.0 mg/dL Normal 2.5-5.0 [facility] Comment on above: Performed By: #### 4 5506, 44270, 72679, 28127, 38979, 60298 #### [facility] [address] [place] [address], [facility] PROSPERAon 10-31-2021 PROSPERA KIT Results to be mailed directly to physician's office by reference lab. Normal [facility] Comment on above: Result Comment: Test performed by [id number] [place] [address] Specimen collected for transplant patient and sent to [facility] per Dr instructions. No charge. No result expected. For billing and tracking purposes only. Performed By: #### 4 5506, 10184, 53356, 58476, 19679, 85804 #### [facility] [address] RESULT Results to be mailed directly to physician's office by reference lab. Normal [facility] Comment on above: Performed By: #### 4 5506, 56532, 05529, 40300, 89701, 45569 #### [facility] [address] [place] [address], [facility] TACROLIMUSon 10-31-2021 Tacrolimus (Bld) [Mass/Vol] 7.6 ng/mL Normal 5.0-20.0 [facility] Comment on above: Result Comment: The [employer] Tacrolimus assay is a delayed one-step immunoassay for the quantitative determination of tacrolimus in human whole blood using the chemiluminescent microparticle immunoassay (CMIA) technology with flexible assay protocols, referred to as Chemiflex. Performed By: #### 4 5506, 68627, 48755, 73359, 84448, 97054 #### [facility] [address] [facility]. [address] URIC ACID BLOODon 10-31-2021 Urate [Mass/Vol] 7.8 mg/dL High 4.4-7.6 [facility] Comment on above: Performed By: #### 4 5506, 38824, 22459, 33161, 96925, 33971 #### [facility] [address] [facility]. [address] NM PARATHYROID WITH SPECT AN D CTon 07-24-2021 NM PARATHYROID WITH SPECT AND CT [facility] Department of Radiology [address] [place] [id number] Patient Name: ROGER KERR : 1950 Sex: M Age: Race: White Pt. Location: Patient Status: D Ordered Date: 06/26/2021 8:40:00 AM Completed Date: 07/24/2021 01:21 PM Requesting Provider: SHAINA SUBRAMANIAN Attending Provider: SHAINA SUBRAMANIAN Report Copy To: JERICHO MCCARTHY Signs & Symptoms: E21.3 Hyperparathyroidism, unspecified I10 History: Sammi NPC Req. per [place] A/B for CPT 59165 *SLA Comments: , , , Ordering Provider - SHAINA SUBRAMANIAN MD , Exam: NM PARATHYROID WITH SPECT AND CT NM PARATHYROID WITH SPECT AND CT 07/24/2021 1:21 PM CLINICAL INDICATIONS: E21.3 Hyperparathyroidism, unspecified I10 TECHNOLOGIST COMMENTS: Hyperparathyroidism. 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 Patient injected with 24.9 mCi of Tc99m Sestamibi for imaging. QUESTION FOR THE RADIOLOGIST: , , , Ordering Provider - SHAINA SUBRAMANIAN MD , PROTOCOL:Following injection of 99mTc sestamibi [...] SPECT. Electronically signed: Nan Allen. Transcribed by: [email or web address], User Resident: Electronically Signed by: NAN ALLEN @ 07/27/2021 12:13 PM Normal [facility] Comment on above: Order Comment: , , = ========= , Ordering Provider - SHAINA SUBRAMANIAN MD , CBC W/DIFFon 06-22-2021 ABS IMM GRANS 0.1 10*3/uL Normal 0.0-0.2 [facility] Comment on above: Performed By: #### 4 5506, 83738, 28810, 78195, 98184, 15233 #### [facility] [address] [place] [address], [facility] ABS NEUTROPHILS 4.7 10*3/uL Normal 1.6-7.6 [facility] Comment on above: Performed By: #### 4 5506, 09768, 23806, 55630, 41940, 94351 #### [facility] [address] [place] [address], [facility] Basophils (Bld) [#/Vol] 0.0 10*3/uL Normal 0.0-0.2 [facility] Comment on above: Performed By: #### 4 5506, 55729, 70189, 28107, 48907, 69495 #### [facility] [address] [place] [address], [facility] Basophils/100 WBC (Bld) 0.6 % Normal 0.0-1.0 [facility] Comment on above: Performed By: #### 4 5506, 61733, 56626, 43139, 20619, 99140 #### [facility] [address] [place] [address], [facility] Eosinophils (Bld) [#/Vol] 0.2 10*3/uL Normal 0.0-0.5 [facility] Comment on above: Performed By: #### 4 5506, 55201, 12004, 33010, 77132, 65265 #### [facility] [address] [place] [address], [facility] Eosinophils/100 WBC (Bld) 2.5 % Normal 0.0-6.0 [facility] Comment on above: Performed By: #### 4 5506, 06452, 87476, 90784, 22768, 32582 #### [facility] [address] [place] [address], [facility] Erythrocyte distribution width (RBC) [Ratio] 13.6 % Normal 11.5-15.0 [facility] Comment on above: Performed By: #### 4 5506, 65503, 94415, 63799, 67522, 27481 #### [facility] [address] [facility]. [address] Hematocrit (Bld) [Volume fraction] 36.3 % Low 39.0-50.0 [facility] Comment on above: Performed By: #### 4 5506, 22097, 63319, 02662, 21971, 53796 #### [facility] [address] [facility] [address] Hemoglobin (Bld) [Mass/Vol] 11.7 g/dL Low 13.0-17.0 [facility] Comment on above: Performed By: #### 4 5506, 85960, 24417, 53316, 67029, 99279 #### [facility] [address] [facility]. [address] IMMATURE GRANS 0.8 % Normal 0.0-1.0 [facility] Comment on above: Performed By: #### 4 5506, 03333, 82841, 34425, 54674, 81681 #### [facility] [address] [facility]. [address] Lymphocytes (Bld) [#/Vol] 0.9 10*3/uL Low 1.2-4.0 [facility] Comment on above: Performed By: #### 4 5506, 82362, 63963, 06595, 46111, 28366 #### [facility] [address] [facility]. [address] Lymphocytes/100 WBC (Bld) 13.6 % Low 20.0-45.0 [facility] Comment on above: Performed By: #### 4 5506, 10678, 92569, 35272, 47514, 08918 #### [facility] [address] MCH (RBC) [Entitic mass] 28.6 pg Normal 27.0-33.0 [facility] Comment on above: Performed By: #### 4 5506, 92232, 38233, 13927, 45819, 85478 #### [facility] [address] [place] [address], [facility] MCHC (RBC) [Mass/Vol] 32.2 g/dL Normal 32.0-35.0 [facility] Comment on above: Performed By: #### 4 5506, 49661, 81347, 88190, 97203, 34564 #### [facility] [address] [place] [address], [facility] MCV (RBC) [Entitic vol] 88.8 fL Normal 82.0-98.0 [facility] Comment on above: Performed By: #### 4 5506, 90355, 09861, 50496, 40337, 77287 #### [facility] [address] [place] [address], [facility] Monocytes (Bld) [#/Vol] 0.6 10*3/uL Normal 0.1-1.0 [facility] Comment on above: Performed By: #### 4 5506, 21769, 19246, 34747, 70413, 09925 #### [facility] [address] [facility] [place] [address], [facility] MONOS 9.6 % Normal 5.0-12.0 [facility] Comment on above: Performed By: #### 4 5506, 09285, 19383, 51709, 01374, 40336 #### [facility] [address] [place] [address], [facility] Neutrophils/100 WBC (Bld) 72.9 % High 40.0-72.0 [facility] Comment on above: Performed By: #### 4 5506, 17716, 06838, 83276, 20050, 71594 #### [facility] [address] [place] [address], [facility] Nucleated RBC/100 WBC (Bld) [Ratio] 0 % Normal 0-0 [facility] Comment on above: Performed By: #### 4 5506, 49995, 18378, 00951, 33466, 90457 #### [facility] [address] [place] [address], [facility] PLAT CNT 263 10*3/uL Normal 150-400 [facility] Comment on above: Performed By: #### 4 5506, 12818, 69837, 17073, 66099, 06385 #### [facility] [address] [place] [address], [facility] RBC (Bld) [#/Vol] 4.09 10*6/uL Low 4.20-5.70 [facility] Comment on above: Performed By: #### 4 5506, 01428, 88341, 81785, 02719, 44960 #### [facility] [address] [place] [address], [facility] WBC (Bld) [#/Vol] 6.45 10*3/uL Normal 4.00-10.60 [facility] Comment on above: Performed By: #### 4 5506, 79742, 62499, 54465, 24346, 96546 #### [facility] [address] [facility] [place] [address], [facility] COMP METABOLIC PANELon 06-22 Albumin [Mass/Vol] 4.3 g/dL Normal 3.5-5.7 [facility] Comment on above: Performed By: #### 4 5506, 11430, 62313, 88371, 41815, 57401 #### [facility] [address] [place] [address], [facility] ALKALINE PHOSPH 143 IU/L High 34-104 [facility] Comment on above: Performed By: #### 4 5506, 23211, 69724, 71535, 44232, 77934 #### [facility] [address] ALT [Catalytic activity/Vol] 18 U/L Normal 7-52 [facility] Comment on above: Performed By: #### 4 5506, 35869, 57700, 79598, 02022, 08704 #### [facility] [address] [place] [address], [place] AST [Catalytic activity/Vol] 15 U/L Normal 13-39 [facility] Comment on above: Performed By: #### 4 5506, 22002, 20188, 87002, 16035, 85231 #### [facility] [address] [place] [address], [place] Bilirubin [Mass/Vol] 0.3 mg/dL Normal 0.3-1.0 [facility] Comment on above: Performed By: #### 4 5506, 08369, 39277, 01027, 44387, 52442 #### [facility] [address] [place] [address], [place] Calcium [Mass/Vol] 10.6 mg/dL High 8.6-10.3 [facility] Comment on above: Performed By: #### 4 5506, 20596, 55896, 76291, 32563, 50673 #### [facility] [address] [place] [address], [place] Chloride [Moles/Vol] 102 mmol/L Normal 98-107 [facility] Comment on above: Performed By: #### 4 5506, 53204, 87524, 82283, 57134, 52269 #### [facility] [address] [place] [address], [place] CO2 [Moles/Vol] 24 mmol/L Normal 21-31 [facility] Comment on above: Performed By: #### 4 5506, 43136, 51469, 78156, 17785, 60887 #### [facility] [address] [place] [address], [place] Creatinine [Mass/Vol] 1.04 mg/dL Normal 0.70-1.30 [facility] Comment on above: Performed By: #### 4 5506, 79050, 87366, 73706, 32660, 60006 #### [facility] [address] [place] [address], [place] GFR/1.73 sq M.predicted among blacks MDRD (S/P/Bld) [Vol rate/Area] mL/min/{1.73_m2} Normal >60 [facility] Comment on above: Performed By: #### 4 5506, 48227, 58376, 20180, 29674, 31350 #### [facility] [address] [place] [address], [place] GFR/1.73 sq M.predicted among non-blacks MDRD (S/P/Bld) [Vol rate/Area] mL/min/{1.73_m2} Normal >60 [facility] Comment on above: Performed By: #### 4 5506, 91388, 65676, 84579, 66721, 02758 #### [facility] [address] [place] [address], [place] Glucose [Mass/Vol] 167 mg/dL High 70-100 [facility] Comment on above: Performed By: #### 4 5506, 47649, 16013, 65459, 19362, 83064 #### [facility] [address] [place] [address], [place] Potassium [Moles/Vol] 5.3 mmol/L High 3.5-5.1 [facility] Comment on above: Performed By: #### 4 5506, 14649, 97255, 31725, 80045, 41963 #### [facility] [address] [place] [address], [place] Protein [Mass/Vol] 6.5 g/dL Normal 6.0-8.3 [facility] Comment on above: Performed By: #### 4 5506, 89752, 24039, 66767, 89003, 72908 #### [facility] [address] [place] [address], [facility] Sodium [Moles/Vol] 134 mmol/L Low 136-145 [facility] Comment on above: Performed By: #### 4 5506, 00929, 57654, 18212, 65412, 99096 #### [facility] [address] [place] [address], [facility] Urea nitrogen [Mass/Vol] 11 mg/dL Normal 7-25 [facility] Comment on above: Performed By: #### 4 5506, 98935, 86411, 55946, 49037, 68290 #### [facility] [address] [place] [address], [facility] DIRECT BILIon 06-22-2021 Bilirubin.direct [Mass/Vol] 0.1 mg/dL Normal 0.0-0.2 [facility] Comment on above: Performed By: #### 4 5506, 52356, 58564, 33833, 11271, 18475 #### [facility] [address] [place] [address], [facility] LIPID PROFILEon 06-22-2021 Cholesterol [Mass/Vol] 77 mg/dL Low 120-200 [facility] Comment on above: Result Comment: CHOL ESTEROL REFERENCE RANGE: 20 YEARS AND OLDER CARDIOVASCULAR RISK Less than 200 mg/dl Low Risk 200 to 239 mg/dl Borderline Risk 240 mg/dl and greater High Risk Performed By: #### 4 5506, 36676, 11035, 71275, 34892, 02612 #### [facility] [address] [place] [address], [facility] Cholesterol in HDL [Mass/Vol] 40 mg/dL Normal 23-92 [facility] Comment on above: Result Comment: Slig ht variation in normal range could be due to gender and/or age. HDL CHOLESTEROL REFERENCE RANGE: 20 years and older Cardiovascular Risk > or =60 mg/dL Desirable 40 TO 59 mg/dL Low Risk <40 mg/dL High Risk Performed By: #### 4 5506, 60218, 95475, 94976, 18648, 70288 #### [facility] [address] [place] [address], [facility] Cholesterol in LDL [Mass/Vol] 24 mg/dL Normal 0-130 [facility] Comment on above: Result Comment: LDL IS A CALCULATION LDL IS ONLY VALID IF THE TRIG IS LESS THAN 400. Performed By: #### 4 5506, 49959, 08502, 85992, 89380, 06059 #### [facility] [address] [place] [address], [facility] Cholesterol.total/Chol esterol in HDL [Mass ratio] 1.9 {ratio} Normal .0-4.5 [facility] Comment on above: Performed By: #### 4 5506, 32714, 80114, 69935, 73465, 97952 #### [facility] [address] [place] [address], [facility] NON-HDL CHOLESTEROL 37 mg/dL Normal [facility] Comment on above: Performed By: #### 4 5506, 90458, 36271, 42915, 74645, 15336 #### [facility] [address] [facility] [place] [address], [facility] Triglyceride [Mass/Vol] 63 mg/dL Normal 40-149 [facility] Comment on above: Result Comment: TRIG LYCERIDE REFERENCE RANGE: 20 YEARS AND OLDER CARDIOVASCULAR RISK LESS THAN 150 mg/dl LOW RISK 150 TO 199 mg/dl BORDERLINE RISK 200 mg/dl AND GREATER HIGH RISK Performed By: #### 4 5506, 13034, 30696, 63211, 69975, 08124 #### [facility] [address] [place] [address], [facility] VLDL CHOL 13 mg/dL Normal 0-40 [facility] Comment on above: Performed By: #### 4 5506, 12194, 47252, 70249, 96134, 44943 #### [facility] [address] [facility] [place] [address], [facility] MAGNESIUM BLOODon 06-22-2021 Magnesium [Mass/Vol] 1.4 mg/dL Low 1.9-2.7 [facility] Comment on above: Performed By: #### 4 5506, 95607, 58165, 96584, 38453, 42531 #### [facility] [address] [place] [address], [facility] PHOSPHORUS BLOODon Phosphate [Mass/Vol] 2.5 mg/dL Normal 2.5-5.0 [facility] Comment on above: Performed By: #### 4 5506, 37428, 27844, 96004, 29945, 61762 #### [facility] [address] [facility] [place] [address], [facility] PTH INTACTon 06-22-2021 PTH INTACT 155 pg/mL High 12-88 [facility] Comment on above: Performed By: #### 4 5506, 72649, 34981, 56043, 28878, 58792 #### [facility] [address] [facility] [place] [address], [facility] TACROLIMUSon 06-22-2021 Tacrolimus (Bld) [Mass/Vol] 21.0 ng/mL High 5.0-20.0 [facility] Comment on above: Result Comment: The [employer] Tacrolimus assay is a delayed one-step immunoassay for the quantitative determination of tacrolimus in human whole blood using the chemiluminescent microparticle immunoassay (CMIA) technology with flexible assay protocols, referred to as Chemiflex. Performed By: #### 4 5506, 30398, 85758, 17531, 63420, 40991 #### [facility] [address] [place] [address], [facility] URIC ACID BLOODon 06-22-2021 Urate [Mass/Vol] 7.9 mg/dL High 4.4-7.6 [facility] Comment on above: Performed By: #### 4 5506, 83287, 37762, 59779, 20829, 80418 #### [facility] [address] CBC W/DIFFon 04-19-2021 ABS IMM GRANS 0.1 10*3/uL Normal 0.0-0.2 [facility] Comment on above: Performed By: #### 4 5506, 36500, 10637, 80091, 32072, 48839 #### [facility] [address] [place] [address], [facility] ABS NEUTROPHILS 5.2 10*3/uL Normal 1.6-7.6 [facility] Comment on above: Performed By: #### 4 5506, 62581, 97529, 30670, 89892, 09680 #### [facility] [address] [place] [address], [facility] Basophils (Bld) [#/Vol] 0.0 10*3/uL Normal 0.0-0.2 [facility] Comment on above: Performed By: #### 4 5506, 89698, 58560, 29430, 46543, 16646 #### [facility] [address] [place] [address], [facility] Basophils/100 WBC (Bld) 0.4 % Normal 0.0-1.0 [facility] Comment on above: Performed By: #### 4 5506, 91386, 69612, 54069, 28987, 50655 #### [facility] [address] [place] [address], [facility] Eosinophils (Bld) [#/Vol] 0.2 10*3/uL Normal 0.0-0.5 [facility] Comment on above: Performed By: #### 4 5506, 28725, 30721, 26847, 57060, 98476 #### [facility] [address] [place] [address], [facility] Eosinophils/100 WBC (Bld) 2.9 % Normal 0.0-6.0 [facility] Comment on above: Performed By: #### 4 5506, 07899, 59949, 69213, 37006, 68918 #### [facility] [address] [facility]. [address] Erythrocyte distribution width (RBC) [Ratio] 13.3 % Normal 11.5-15.0 [facility] Comment on above: Performed By: #### 4 5506, 30075, 01435, 30788, 43575, 52133 #### [facility] [address] [facility]. [address] Hematocrit (Bld) [Volume fraction] 37.1 % Low 39.0-50.0 [facility] Comment on above: Performed By: #### 4 5506, 16612, 78172, 13409, 97877, 91050 #### [facility] [address] [facility]. [address] Hemoglobin (Bld) [Mass/Vol] 11.7 g/dL Low 13.0-17.0 [facility] Comment on above: Performed By: #### 4 5506, 82115, 50485, 56258, 08104, 07085 #### [facility] [address] [facility]. [address] IMMATURE GRANS 0.9 % Normal 0.0-1.0 [facility] Comment on above: Performed By: #### 4 5506, 61775, 06901, 29124, 32202, 80393 #### [facility] [address] [facility]. [address] Lymphocytes (Bld) [#/Vol] 0.9 10*3/uL Low 1.2-4.0 [facility] Comment on above: Performed By: #### 4 5506, 29398, 86877, 03160, 66583, 54394 #### [facility] [address] [place] [address], [facility] Lymphocytes/100 WBC (Bld) 12.5 % Low 20.0-45.0 [facility] Comment on above: Performed By: #### 4 5506, 47188, 52409, 14839, 33746, 26580 #### [facility] [address] [facility]. [address] MCH (RBC) [Entitic mass] 29.0 pg Normal 27.0-33.0 [facility] Comment on above: Performed By: #### 4 5506, 79270, 25223, 62186, 35123, 50588 #### [facility] [address] MCHC (RBC) [Mass/Vol] 31.5 g/dL Low 32.0-35.0 [facility] Comment on above: Performed By: #### 4 5506, 36089, 23777, 45844, 57847, 53759 #### [facility] [address] [facility]. [address] MCV (RBC) [Entitic vol] 92.1 fL Normal 82.0-98.0 [facility] Comment on above: Performed By: #### 4 5506, 42192, 10708, 68594, 45149, 30460 #### [facility] [address] [facility]. [address] Monocytes (Bld) [#/Vol] 0.6 10*3/uL Normal 0.1-1.0 [facility] Comment on above: Performed By: #### 4 5506, 95146, 63396, 72191, 82992, 80165 #### [facility] [address] [facility]. [address] MONOS 8.6 % Normal 5.0-12.0 [facility] Comment on above: Performed By: #### 4 5506, 13905, 73086, 07604, 82678, 67614 #### [facility] [address] Neutrophils/100 WBC (Bld) 74.7 % High 40.0-72.0 [facility] Comment on above: Performed By: #### 4 5506, 48323, 10063, 72391, 12499, 72348 #### [facility] [address] [place] [address], [facility] Nucleated RBC/100 WBC (Bld) [Ratio] 0 % Normal 0-0 [facility] Comment on above: Performed By: #### 4 5506, 50903, 51637, 16967, 88626, 74956 #### [facility] [address] [place] [address], [facility] PLAT CNT 290 10*3/uL Normal 150-400 [facility] Comment on above: Performed By: #### 4 5506, 48659, 32454, 60576, 28294, 94967 #### [facility] [address] [place] [address], [facility] RBC (Bld) [#/Vol] 4.03 10*6/uL Low 4.20-5.70 [facility] Comment on above: Performed By: #### 4 5506, 83625, 38834, 09747, 25871, 73063 #### [facility] [address] [facility] [place] [address], [facility] WBC (Bld) [#/Vol] 6.96 10*3/uL Normal 4.00-10.60 [facility] Comment on above: Performed By: #### 4 5506, 27731, 68536, 95652, 76648, 99630 #### [facility] [address] [place] [id number], [facility] COMP METABOLIC PANELon 04-19 Albumin [Mass/Vol] 4.3 g/dL Normal 3.5-5.7 [facility] Comment on above: Performed By: #### 4 5506, 65260, 69909, 74165, 09234, 74612 #### [facility] [address] [place] [address], [facility] ALKALINE PHOSPH 137 IU/L High 34-104 [facility] Comment on above: Performed By: #### 4 5506, 54101, 84886, 06378, 16383, 45683 #### [facility] [address] [place] [address], [place] ALT [Catalytic activity/Vol] 17 U/L Normal 7-52 [facility] Comment on above: Performed By: #### 4 5506, 42964, 79722, 55054, 21502, 37396 #### [facility] [address] [place] [address], [place] AST [Catalytic activity/Vol] 16 U/L Normal 13-39 [facility] Comment on above: Performed By: #### 4 5506, 83724, 69944, 93682, 29163, 40171 #### [facility] [address] [place] [address], [place] Bilirubin [Mass/Vol] 0.4 mg/dL Normal 0.3-1.0 [facility] Comment on above: Performed By: #### 4 5506, 98838, 28302, 00175, 30669, 32586 #### [facility] [address] [place] [address], [place] Calcium [Mass/Vol] 10.5 mg/dL High 8.6-10.3 [facility] Comment on above: Performed By: #### 4 5506, 00961, 25647, 31338, 67204, 05839 #### [facility] [address] [place] [address], [place] Chloride [Moles/Vol] 99 mmol/L Normal 98-107 [facility] Comment on above: Performed By: #### 4 5506, 05596, 19711, 26091, 18411, 99134 #### [facility] [address] [place] [address], [place] CO2 [Moles/Vol] 27 mmol/L Normal 21-31 [facility] Comment on above: Performed By: #### 4 5506, 43129, 44732, 84912, 79707, 44527 #### [facility] [address] [place] [address], [place] Creatinine [Mass/Vol] 1.04 mg/dL Normal 0.70-1.30 [facility] Comment on above: Performed By: #### 4 5506, 49484, 17941, 93805, 20725, 08322 #### [facility] [address] [place] [address], [place] GFR/1.73 sq M.predicted among blacks MDRD (S/P/Bld) [Vol rate/Area] mL/min/{1.73_m2} Normal >60 [facility] Comment on above: Performed By: #### 4 5506, 60614, 77165, 05024, 67329, 70672 #### [facility] [address] [place] [address], [place] GFR/1.73 sq M.predicted among non-blacks MDRD (S/P/Bld) [Vol rate/Area] mL/min/{1.73_m2} Normal >60 [facility] Comment on above: Performed By: #### 4 5506, 25124, 50392, 26306, 49492, 49003 #### [facility] [address] [place] [address], [place] Glucose [Mass/Vol] 139 mg/dL High 70-100 [facility] Comment on above: Performed By: #### 4 5506, 58353, 78979, 48314, 56469, 33986 #### [facility] [address] [place] [address], [place] Potassium [Moles/Vol] 5.1 mmol/L Normal 3.5-5.1 [facility] Comment on above: Performed By: #### 4 5506, 92324, 98442, 02969, 97693, 63066 #### [facility] [address] [place] [address], [facility] Protein [Mass/Vol] 6.5 g/dL Normal 6.0-8.3 [facility] Comment on above: Performed By: #### 4 5506, 60861, 90601, 16348, 37897, 15797 #### [facility] [address] [place] [address], [facility] Sodium [Moles/Vol] 133 mmol/L Low 136-145 [facility] Comment on above: Performed By: #### 4 5506, 62989, 16750, 04409, 77689, 16463 #### [facility] [address] [place] [address], [facility] Urea nitrogen [Mass/Vol] 11 mg/dL Normal 7-25 [facility] Comment on above: Performed By: #### 4 5506, 08372, 38863, 96510, 48383, 37588 #### [facility] [address] [place] [address], [facility] DIRECT BILIon 04-19-2021 Bilirubin.direct [Mass/Vol] 0.1 mg/dL Normal 0.0-0.2 [facility] Comment on above: Performed By: #### 4 5506, 30854, 21426, 53260, 04396, 08656 #### [facility] [address] [place] [address], [facility] LIPID PROFILEon 04-19-2021 Cholesterol [Mass/Vol] 82 mg/dL Low 120-200 [facility] Comment on above: Result Comment: CHOL ESTEROL REFERENCE RANGE: 20 YEARS AND OLDER CARDIOVASCULAR RISK Less than 200 mg/dl Low Risk 200 to 239 mg/dl Borderline Risk 240 mg/dl and greater High Risk Performed By: #### 4 5506, 71638, 98859, 84950, 78317, 45330 #### [facility] [address] [place] [address], [place] Cholesterol in HDL [Mass/Vol] 38 mg/dL Normal 23-92 [facility] Comment on above: Result Comment: Slig ht variation in normal range could be due to gender and/or age. HDL CHOLESTEROL REFERENCE RANGE: 20 years and older Cardiovascular Risk > or =60 mg/dL Desirable 40 TO 59 mg/dL Low Risk <40 mg/dL High Risk Performed By: #### 4 5506, 90733, 70510, 11764, 58526, 90504 #### [facility] [address] [place] [address], [place] Cholesterol in LDL [Mass/Vol] 25 mg/dL Normal 0-130 [facility] Comment on above: Result Comment: LDL IS A CALCULATION LDL IS ONLY VALID IF THE TRIG IS LESS THAN 400. Performed By: #### 4 5506, 02180, 99635, 59515, 09825, 78161 #### [facility] [address] [place] [address], [place] Cholesterol.total/Chol esterol in HDL [Mass ratio] 2.2 {ratio} Normal .0-4.5 [facility] Comment on above: Performed By: #### 4 5506, 40810, 22074, 37479, 08274, 91124 #### [facility] [address] [place] [address], [place] NON-HDL CHOLESTEROL 44 mg/dL Normal [facility] Comment on above: Performed By: #### 4 5506, 77206, 71414, 41933, 02521, 25995 #### [facility] [address] [place] [address], [place] Triglyceride [Mass/Vol] 93 mg/dL Normal 40-149 [facility] Comment on above: Result Comment: TRIG LYCERIDE REFERENCE RANGE: 20 YEARS AND OLDER CARDIOVASCULAR RISK LESS THAN 150 mg/dl LOW RISK 150 TO 199 mg/dl BORDERLINE RISK 200 mg/dl AND GREATER HIGH RISK Performed By: #### 4 5506, 32718, 96063, 91374, 43212, 87888 #### [facility] [address] [place] [address], [facility] VLDL CHOL 19 mg/dL Normal 0-40 [facility] Comment on above: Performed By: #### 4 5506, 00689, 73807, 52841, 60574, 58502 #### [facility] [address] [place] [address], [facility] MAGNESIUM BLOODon 04-19-2021 Magnesium [Mass/Vol] 1.8 mg/dL Low 1.9-2.7 [facility] Comment on above: Performed By: #### 4 5506, 03559, 45002, 73521, 20214, 00236 #### [facility] [address] [place] [address], [facility] PHOSPHORUS BLOODon Phosphate [Mass/Vol] 3.0 mg/dL Normal 2.5-5.0 [facility] Comment on above: Performed By: #### 4 5506, 14411, 86110, 78563, 44290, 75222 #### [facility] [address] PROSPERAon 04-19-2021 PROSPERA KIT Results to be mailed directly to physician's office by reference lab. Normal [facility] Comment on above: Result Comment: Test performed by [id number] [place] [address] No result expected. For billing and tracking purposes only. Specimen collected for transplant patient and sent to [facility] per Dr instructions. No charge. Performed By: #### 4 5506, 30598, 63304, 34945, 54151, 39790 #### [facility] [address] RESULT Results to be mailed directly to physician's office by reference lab. Normal [facility] Comment on above: Performed By: #### 4 5506, 86223, 89127, 13774, 42777, 35258 #### [facility] [address] TACROLIMUSon 04-19-2021 Tacrolimus (Bld) [Mass/Vol] 7.7 ng/mL Normal 5.0-20.0 [facility] Comment on above: Result Comment: The [employer] Tacrolimus assay is a delayed one-step immunoassay for the quantitative determination of tacrolimus in human whole blood using the chemiluminescent microparticle immunoassay (CMIA) technology with flexible assay protocols, referred to as Chemiflex. Performed By: #### 4 5506, 77733, 34563, 10824, 67844, 03455 #### [facility] [address] URIC ACID BLOODon 04-19-2021 Urate [Mass/Vol] 7.9 mg/dL High 4.4-7.6 [facility] Comment on above: Performed By: #### 4 5506, 23289, 41181, 34061, 89107, 39379 #### [facility] [address] CBC W/DIFFon 04-11-2021 ABS IMM GRANS 0.0 10*3/uL Normal 0.0-0.2 [facility] Comment on above: Performed By: #### 4 5506, 82073, 09291, 54233, 05300, 21799 #### [facility] [address] ABS NEUTROPHILS 4.5 10*3/uL Normal 1.6-7.6 [facility] Comment on above: Performed By: #### 4 5506, 68297, 62734, 41903, 28172, 11576 #### [facility] [address] Basophils (Bld) [#/Vol] 0.0 10*3/uL Normal 0.0-0.2 [facility] Comment on above: Performed By: #### 4 5506, 97472, 53649, 19167, 34823, 28873 #### [facility] [address] [place] [address], [facility] Basophils/100 WBC (Bld) 0.5 % Normal 0.0-1.0 [facility] Comment on above: Performed By: #### 4 5506, 36669, 14955, 35311, 40535, 59957 #### [facility] [address] [place] [address], [facility] Eosinophils (Bld) [#/Vol] 0.2 10*3/uL Normal 0.0-0.5 [facility] Comment on above: Performed By: #### 4 5506, 37665, 23711, 53024, 12065, 30296 #### [facility] [address] [place] [address], [facility] Eosinophils/100 WBC (Bld) 3.1 % Normal 0.0-6.0 [facility] Comment on above: Performed By: #### 4 5506, 94330, 70047, 52468, 83229, 78907 #### [facility] [address] [facility] [place] [address], [facility] Erythrocyte distribution width (RBC) [Ratio] 13.4 % Normal 11.5-15.0 [facility] Comment on above: Performed By: #### 4 5506, 81976, 30710, 99075, 79366, 36323 #### [facility] [address] [place] [address], [facility] Hematocrit (Bld) [Volume fraction] 35.5 % Low 39.0-50.0 [facility] Comment on above: Performed By: #### 4 5506, 88254, 97375, 54613, 62717, 29948 #### [facility] [address] [place] [address], [facility] Hemoglobin (Bld) [Mass/Vol] 11.7 g/dL Low 13.0-17.0 [facility] Comment on above: Performed By: #### 4 5506, 04970, 75463, 40297, 97954, 19410 #### [facility] [address] [facility] [place] [address], [facility] IMMATURE GRANS 0.6 % Normal 0.0-1.0 [facility] Comment on above: Performed By: #### 4 5506, 09319, 90953, 48444, 20426, 45011 #### [facility] [address] [facility] [place] [address], [facility] Lymphocytes (Bld) [#/Vol] 0.8 10*3/uL Low 1.2-4.0 [facility] Comment on above: Performed By: #### 4 5506, 76153, 18256, 72927, 57524, 31618 #### [facility] [address] [facility] [address] Lymphocytes/100 WBC (Bld) 12.9 % Low 20.0-45.0 [facility] Comment on above: Performed By: #### 4 5506, 25742, 04411, 66299, 03441, 09697 #### [facility] [address] [facility] [place] [address], [facility] MCH (RBC) [Entitic mass] 29.2 pg Normal 27.0-33.0 [facility] Comment on above: Performed By: #### 4 5506, 15763, 35240, 06538, 55203, 86478 #### [facility] [address] [facility] [place] [address], [facility] MCHC (RBC) [Mass/Vol] 33.0 g/dL Normal 32.0-35.0 [facility] Comment on above: Performed By: #### 4 5506, 86805, 85735, 89010, 58893, 04824 #### [facility] [address] [facility] [place] [address], [facility] MCV (RBC) [Entitic vol] 88.5 fL Normal 82.0-98.0 [facility] Comment on above: Performed By: #### 4 5506, 75686, 38614, 12339, 43981, 09537 #### [facility] [address] [place] [address], [facility] Monocytes (Bld) [#/Vol] 0.6 10*3/uL Normal 0.1-1.0 [facility] Comment on above: Performed By: #### 4 5506, 60512, 33354, 77739, 60146, 07192 #### [facility] [address] [facility] [address] MONOS 10.3 % Normal 5.0-12.0 [facility] Comment on above: Performed By: #### 4 5506, 40705, 02402, 59148, 11529, 69693 #### [facility] [address] Neutrophils/100 WBC (Bld) 72.6 % High 40.0-72.0 [facility] Comment on above: Performed By: #### 4 5506, 58359, 79613, 37274, 70547, 67658 #### [facility] [address] [facility] [place] [address], [facility] Nucleated RBC/100 WBC (Bld) [Ratio] 0 % Normal 0-0 [facility] Comment on above: Performed By: #### 4 5506, 88019, 26841, 21728, 42582, 61502 #### [facility] [address] [facility] [place] [address], [facility] PLAT CNT 272 10*3/uL Normal 150-400 [facility] Comment on above: Performed By: #### 4 5506, 41719, 77734, 89087, 33961, 60607 #### [facility] [address] [place] [address], [facility] RBC (Bld) [#/Vol] 4.01 10*6/uL Low 4.20-5.70 [facility] Comment on above: Performed By: #### 4 5506, 76167, 89705, 18245, 35424, 59297 #### [facility] [address] [place] [address], [facility] WBC (Bld) [#/Vol] 6.22 10*3/uL Normal 4.00-10.60 [facility] Comment on above: Performed By: #### 4 5506, 01296, 39344, 50551, 45732, 13034 #### [facility] [address] [place] [address], [facility] COMP METABOLIC PANELon 04-11 Albumin [Mass/Vol] 4.3 g/dL Normal 3.5-5.7 [facility] Comment on above: Performed By: #### 4 5506, 88343, 06342, 08951, 27089, 08347 #### [facility] [address] [place] [address], [facility] ALKALINE PHOSPH 115 IU/L High 34-104 [facility] Comment on above: Performed By: #### 4 5506, 51756, 85785, 62907, 27008, 96809 #### [facility] [address] [place] [id number], [facility] ALT [Catalytic activity/Vol] 16 U/L Normal 7-52 [facility] Comment on above: Performed By: #### 4 5506, 41776, 55771, 08374, 26280, 45953 #### [facility] [address] [place] [address], [facility] AST [Catalytic activity/Vol] 15 U/L Normal 13-39 [facility] Comment on above: Performed By: #### 4 5506, 27445, 99016, 35008, 13317, 65169 #### [facility] [address] [place] [address], [place] Bilirubin [Mass/Vol] 0.6 mg/dL Normal 0.3-1.0 [facility] Comment on above: Performed By: #### 4 5506, 44969, 63610, 32371, 95185, 77710 #### [facility] [address] [place] [address], [place] Calcium [Mass/Vol] 10.3 mg/dL Normal 8.6-10.3 [facility] Comment on above: Performed By: #### 4 5506, 67339, 89922, 03674, 57813, 64749 #### [facility] [address] [place] [address], [place] Chloride [Moles/Vol] 97 mmol/L Low 98-107 [facility] Comment on above: Performed By: #### 4 5506, 16842, 95715, 80826, 68377, 89129 #### [facility] [address] [place] [address], [place] CO2 [Moles/Vol] 26 mmol/L Normal 21-31 [facility] Comment on above: Performed By: #### 4 5506, 97509, 47578, 01858, 82715, 50915 #### [facility] [address] [place] [address], [place] Creatinine [Mass/Vol] 0.93 mg/dL Normal 0.70-1.30 [facility] Comment on above: Performed By: #### 4 5506, 51599, 96524, 82146, 66403, 08577 #### [facility] [address] [place] [address], [place] GFR/1.73 sq M.predicted among blacks MDRD (S/P/Bld) [Vol rate/Area] mL/min/{1.73_m2} Normal >60 [facility] Comment on above: Performed By: #### 4 5506, 40903, 70959, 08266, 35922, 96428 #### [facility] [address] [place] [address], [place] GFR/1.73 sq M.predicted among non-blacks MDRD (S/P/Bld) [Vol rate/Area] mL/min/{1.73_m2} Normal >60 [facility] Comment on above: Performed By: #### 4 5506, 01268, 63516, 14291, 94031, 56116 #### [facility] [address] [place] [address], [place] Glucose [Mass/Vol] 136 mg/dL High 70-100 [facility] Comment on above: Performed By: #### 4 5506, 57252, 40098, 50970, 77711, 39972 #### [facility] [address] [place] [address], [place] Potassium [Moles/Vol] 5.2 mmol/L High 3.5-5.1 [facility] Comment on above: Performed By: #### 4 5506, 76990, 46219, 11247, 31481, 29238 #### [facility] [address] [place] [address], [place] Protein [Mass/Vol] 6.7 g/dL Normal 6.0-8.3 [facility] Comment on above: Performed By: #### 4 5506, 76468, 00329, 16869, 55726, 56947 #### [facility] [address] [place] [address], [place] Sodium [Moles/Vol] 129 mmol/L Low 136-145 [facility] Comment on above: Performed By: #### 4 5506, 33316, 28315, 20589, 23616, 52816 #### [facility] [address] [place] [address], [place] Urea nitrogen [Mass/Vol] 10 mg/dL Normal 7-25 [facility] Comment on above: Performed By: #### 4 5506, 78177, 78395, 46211, 09231, 82791 #### [facility] [address] [place] [address], [facility] DIRECT BILIon 04-11-2021 Bilirubin.direct [Mass/Vol] 0.2 mg/dL Normal 0.0-0.2 [facility] Comment on above: Performed By: #### 4 5506, 76029, 41067, 00031, 82695, 27551 #### [facility] [address] [place] [address], [facility] LIPID PROFILEon 04-11-2021 Cholesterol [Mass/Vol] 84 mg/dL Low 120-200 [facility] Comment on above: Result Comment: CHOL ESTEROL REFERENCE RANGE: 20 YEARS AND OLDER CARDIOVASCULAR RISK Less than 200 mg/dl Low Risk 200 to 239 mg/dl Borderline Risk 240 mg/dl and greater High Risk Performed By: #### 4 5506, 00402, 71409, 31731, 84889, 47738 #### [facility] [address] [place] [address], [facility] Cholesterol in HDL [Mass/Vol] 41 mg/dL Normal 23-92 [facility] Comment on above: Result Comment: Slig ht variation in normal range could be due to gender and/or age. HDL CHOLESTEROL REFERENCE RANGE: 20 years and older Cardiovascular Risk > or =60 mg/dL Desirable 40 TO 59 mg/dL Low Risk <40 mg/dL High Risk Performed By: #### 4 5506, 22120, 20142, 74678, 82005, 70021 #### [facility] [address] [place] [address], [facility] Cholesterol in LDL [Mass/Vol] 34 mg/dL Normal 0-130 [facility] Comment on above: Result Comment: LDL IS A CALCULATION LDL IS ONLY VALID IF THE TRIG IS LESS THAN 400. Performed By: #### 4 5506, 36083, 70847, 09133, 69265, 57294 #### [facility] [address] [place] [address], [facility] Cholesterol.total/Chol esterol in HDL [Mass ratio] 2.0 {ratio} Normal .0-4.5 [facility] Comment on above: Performed By: #### 4 5506, 41363, 52301, 71547, 80734, 24840 #### [facility] [address] [place] [address], [facility] NON-HDL CHOLESTEROL 43 mg/dL Normal [facility] Comment on above: Performed By: #### 4 5506, 96326, 71166, 45217, 49814, 01719 #### [facility] [address] [place] [address], [facility] Triglyceride [Mass/Vol] 47 mg/dL Normal 40-149 [facility] Comment on above: Result Comment: TRIG LYCERIDE REFERENCE RANGE: 20 YEARS AND OLDER CARDIOVASCULAR RISK LESS THAN 150 mg/dl LOW RISK 150 TO 199 mg/dl BORDERLINE RISK 200 mg/dl AND GREATER HIGH RISK Performed By: #### 4 5506, 95652, 48920, 44601, 27920, 68069 #### [facility] [address] [place] [address], [facility] VLDL CHOL 9 mg/dL Normal 0-40 [facility] Comment on above: Performed By: #### 4 5506, 02839, 34224, 42670, 62097, 27169 #### [facility] [address] [place] [address], [facility] MAGNESIUM BLOODon 04-11-2021 Magnesium [Mass/Vol] 1.3 mg/dL Low 1.9-2.7 [facility] Comment on above: Performed By: #### 4 5506, 55384, 12907, 90757, 68436, 12234 #### [facility] [address] [place] [address], [facility] PHOSPHORUS BLOODon Phosphate [Mass/Vol] 2.6 mg/dL Normal 2.5-5.0 [facility] Comment on above: Performed By: #### 4 5506, 43356, 21620, 36801, 30785, 97134 #### [facility] [address] [facility]. [address] TACROLIMUSon 04-11-2021 Tacrolimus (Bld) [Mass/Vol] 8.3 ng/mL Normal 5.0-20.0 [facility] Comment on above: Result Comment: The [employer] Tacrolimus assay is a delayed one-step immunoassay for the quantitative determination of tacrolimus in human whole blood using the chemiluminescent microparticle immunoassay (CMIA) technology with flexible assay protocols, referred to as Chemiflex. Performed By: #### 4 5506, 68658, 52044, 62285, 53540, 31577 #### [facility] [address] URIC ACID BLOODon 04-11-2021 Urate [Mass/Vol] 8.4 mg/dL High 4.4-7.6 [facility] Comment on above: Performed By: #### 4 5506, 89836, 96969, 51826, 23928, 26747 #### [facility] [address] [facility]. [address] BK VIRUS QUANTITATION FOR PL ASMAon 02-16-2021 BKV Plasma Quantitation by PCR Not detected Normal [facility] Comment on above: Result Comment: Meth od: BK virus was measured by quantitative polymerase chain reaction using a fluorescent hydrolysis probe targeting the polyomavirus BK BRICK HANDLER-1 gene. The lower limit of quantitation of the assay is 500 copies of BK genome per milliliter of plasma or urine, and any detectable BK DNA below that level is reported as: Detected, <500 copies/ml. Serial BK virus measurement can be used to monitor disease activity. (Reference: Katina ramirezl. J CLIN MICRO 2004; 42:2026-1530). This test was developed and its performance characteristics determined by the [facility]. It has not been approved by the [place] Food and Drug Administration. However, such approval is not required for clinical implementation, and test results have been shown to be clinically useful. This laboratory is CAP accredited and CLIA certified to perform high complexity testing. Performed By: #### 4 5506, 08052, 05378, 28249, 07811, 42468 #### [facility] [address] BKV Plasma Quantitation Log by PCR Not detected Normal [facility] Comment on above: Performed By: #### 4 5506, 17806, 77248, 95914, 14773, 97160 #### [facility] [address] CBC W/DIFFon 02-16-2021 ABS IMM GRANS 0.1 10*3/uL Normal 0.0-0.2 [facility] Comment on above: Performed By: #### 4 5506, 51008, 81047, 32722, 80392, 22485 #### [facility] [address] ABS NEUTROPHILS 5.8 10*3/uL Normal 1.6-7.6 [facility] Comment on above: Performed By: #### 4 5506, 45984, 28676, 84117, 15267, 75884 #### [facility] [address] Basophils (Bld) [#/Vol] 0.0 10*3/uL Normal 0.0-0.2 [facility] Comment on above: Performed By: #### 4 5506, 29925, 69821, 53334, 33949, 79671 #### [facility] [address] [place] [address], [facility] Basophils/100 WBC (Bld) 0.4 % Normal 0.0-1.0 [facility] Comment on above: Performed By: #### 4 5506, 30966, 94527, 95949, 15445, 09399 #### [facility] [address] [place] [address], [facility] Eosinophils (Bld) [#/Vol] 0.3 10*3/uL Normal 0.0-0.5 [facility] Comment on above: Performed By: #### 4 5506, 55504, 34007, 34847, 25342, 23738 #### [facility] [address] [place] [address], [facility] Eosinophils/100 WBC (Bld) 3.5 % Normal 0.0-6.0 [facility] Comment on above: Performed By: #### 4 5506, 96471, 02759, 59711, 06901, 63198 #### [facility] [address] Erythrocyte distribution width (RBC) [Ratio] 13.6 % Normal 11.5-15.0 [facility] Comment on above: Performed By: #### 4 5506, 38810, 44840, 66911, 37620, 27822 #### [facility] [address] Hematocrit (Bld) [Volume fraction] 34.1 % Low 39.0-50.0 [facility] Comment on above: Performed By: #### 4 5506, 53383, 59165, 42481, 52121, 10916 #### [facility] [address] Hemoglobin (Bld) [Mass/Vol] 11.6 g/dL Low 13.0-17.0 [facility] Comment on above: Performed By: #### 4 5506, 73377, 72215, 25104, 09018, 47466 #### [facility] [address] [place] [address], [facility] IMMATURE GRANS 0.8 % Normal 0.0-1.0 [facility] Comment on above: Performed By: #### 4 5506, 09039, 85786, 33951, 93427, 06697 #### [facility] [address] Lymphocytes (Bld) [#/Vol] 0.7 10*3/uL Low 1.2-4.0 [facility] Comment on above: Performed By: #### 4 5506, 87918, 38691, 74135, 43453, 23412 #### [facility] [address] Lymphocytes/100 WBC (Bld) 9.2 % Low 20.0-45.0 [facility] Comment on above: Performed By: #### 4 5506, 45214, 51128, 85241, 62803, 66095 #### [facility] [address] MCH (RBC) [Entitic mass] 29.5 pg Normal 27.0-33.0 [facility] Comment on above: Performed By: #### 4 5506, 71687, 99185, 21966, 48258, 97231 #### [facility] [address] MCHC (RBC) [Mass/Vol] 34.0 g/dL Normal 32.0-35.0 [facility] Comment on above: Performed By: #### 4 5506, 56517, 37396, 67956, 22382, 08519 #### [facility] [address] MCV (RBC) [Entitic vol] 86.8 fL Normal 82.0-98.0 [facility] Comment on above: Performed By: #### 4 5506, 80648, 01558, 53659, 89470, 79527 #### [facility] [address] [place] [address], [facility] Monocytes (Bld) [#/Vol] 0.8 10*3/uL Normal 0.1-1.0 [facility] Comment on above: Performed By: #### 4 5506, 42144, 73665, 92255, 18389, 31408 #### [facility] [address] [place] [id number], [facility] MONOS 10.3 % Normal 5.0-12.0 [facility] Comment on above: Performed By: #### 4 5506, 76428, 46903, 27866, 43791, 31898 #### [facility] [address] [place] [id number], [facility] Neutrophils/100 WBC (Bld) 75.8 % High 40.0-72.0 [facility] Comment on above: Performed By: #### 4 5506, 12344, 61034, 51374, 90030, 15960 #### [facility] [address] [place] [id number], [facility] Nucleated RBC/100 WBC (Bld) [Ratio] 0 % Normal 0-0 [facility] Comment on above: Performed By: #### 4 5506, 80130, 45716, 74327, 05628, 71965 #### [facility] [address] [facility] [place] [address], [facility] PLAT CNT 256 10*3/uL Normal 150-400 [facility] Comment on above: Performed By: #### 4 5506, 46471, 44077, 78324, 92939, 67460 #### [facility] 3000 [facility] [place] [address], [facility] RBC (Bld) [#/Vol] 3.93 10*6/uL Low 4.20-5.70 [facility] Comment on above: Performed By: #### 4 5506, 30013, 35363, 66929, 00328, 49316 #### [facility] [address] [place] [id number], [place] WBC (Bld) [#/Vol] 7.65 10*3/uL Normal 4.00-10.60 [facility] Comment on above: Performed By: #### 4 5506, 04393, 43467, 75059, 93229, 12783 #### [facility] [address] [place] [address], [facility] COMP METABOLIC PANELon 02-16 Albumin [Mass/Vol] 4.6 g/dL Normal 3.5-5.7 [facility] Comment on above: Performed By: #### 0 0121, 68488, 05808, 21671, 56365, 39731, 04210, 09206 #### [facility] [address] [place] [address], [facility] ALKALINE PHOSPH 136 IU/L High 34-104 [facility] Comment on above: Performed By: #### 0 0121, 85060, 23459, 06255, 59790, 33903, 14922, 77369 #### [facility] [address] [place] [address], [facility] ALT [Catalytic activity/Vol] 22 U/L Normal 7-52 [facility] Comment on above: Performed By: #### 0 0121, 85177, 84373, 13732, 53949, 66223, 89560, 51722 #### [facility] [address] [place] [address], [facility] AST [Catalytic activity/Vol] 18 U/L Normal 13-39 [facility] Comment on above: Performed By: #### 0 0121, 44154, 76129, 72875, 67457, 10104, 16238, 69093 #### [facility] [address] [place] [address], [place] Bilirubin [Mass/Vol] 0.5 mg/dL Normal 0.3-1.0 [facility] Comment on above: Performed By: #### 0 0121, 26498, 62185, 92623, 52992, 04558, 30214, 42632 #### [facility] [address] [place] [address], [place] Calcium [Mass/Vol] 10.5 mg/dL High 8.6-10.3 [facility] Comment on above: Performed By: #### 0 0121, 60864, 54020, 71051, 68851, 89294, 51863, 15696 #### [facility] [address] [place] [address], [facility] Chloride [Moles/Vol] 94 mmol/L Low 98-107 [facility] Comment on above: Performed By: #### 0 0121, 45907, 77425, 45946, 89265, 43614, 05430, 34617 #### [facility] [address] [place] [address], [place] CO2 [Moles/Vol] 28 mmol/L Normal 21-31 [facility] Comment on above: Performed By: #### 0 0121, 63969, 99582, 26848, 11485, 99100, 45275, 19417 #### [facility] [address] [place] [address], [facility] Creatinine [Mass/Vol] 0.93 mg/dL Normal 0.70-1.30 [facility] Comment on above: Performed By: #### 0 0121, 03368, 84323, 46623, 72595, 47664, 46745, 80245 #### [facility] [address] [place] [address], [place] GFR/1.73 sq M.predicted among blacks MDRD (S/P/Bld) [Vol rate/Area] mL/min/{1.73_m2} Normal >60 [facility] Comment on above: Performed By: #### 0 0121, 66275, 13245, 94235, 91611, 31723, 03908, 54887 #### [facility] [address] [place] [address], [place] GFR/1.73 sq M.predicted among non-blacks MDRD (S/P/Bld) [Vol rate/Area] mL/min/{1.73_m2} Normal >60 [facility] Comment on above: Performed By: #### 0 0121, 72490, 22243, 14188, 18554, 83307, 28238, 17506 #### [facility] [address] [place] [address], [place] Glucose [Mass/Vol] 147 mg/dL High 70-100 [facility] Comment on above: Performed By: #### 0 0121, 63046, 26292, 28943, 38240, 86633, 91972, 08769 #### [facility] [address] [place] [address], [place] Potassium [Moles/Vol] 4.6 mmol/L Normal 3.5-5.1 [facility] Comment on above: Performed By: #### 0 0121, 62235, 48458, 34238, 94575, 43558, 32750, 43580 #### [facility] [address] [place] [address], [place] Protein [Mass/Vol] 7.2 g/dL Normal 6.0-8.3 [facility] Comment on above: Performed By: #### 0 0121, 87137, 92753, 89113, 15267, 46510, 31329, 68559 #### [facility] [address] [place] [address], [place] Sodium [Moles/Vol] 129 mmol/L Low 136-145 [facility] Comment on above: Performed By: #### 0 0121, 34048, 88718, 42108, 90448, 23322, 28097, 53101 #### [facility] [address] [place] [address], [place] Urea nitrogen [Mass/Vol] 15 mg/dL Normal 7-25 [facility] Comment on above: Performed By: #### 0 0121, 44209, 94057, 45092, 07004, 96337, 92442, 07986 #### [facility] [address] [place] [address], [facility] DIRECT BILIon 02-16-2021 Bilirubin.direct [Mass/Vol] 0.2 mg/dL Normal 0.0-0.2 [facility] Comment on above: Performed By: #### 4 5506, 14493, 97441, 79690, 78818, 97162 #### [facility] [address] [place] [address], [facility] HEMOGLOBIN A1Con 02-16-2021 Glucose [Moles/Vol] 154 mmol/L Normal [facility] Comment on above: Performed By: #### 4 5506, 51827, 95702, 19939, 15434, 89392 #### [facility] [address] [place] [address], [facility] HbA1c (Bld) [Mass fraction] 7.0 % High 4.0-6.0 [facility] Comment on above: Performed By: #### 4 5506, 06183, 12272, 28364, 28429, 75179 #### [facility] [address] [place] [address], [facility] LIPID PROFILEon 02-16-2021 Cholesterol [Mass/Vol] 78 mg/dL Low 120-200 [facility] Comment on above: Result Comment: CHOL ESTEROL REFERENCE RANGE: 20 YEARS AND OLDER CARDIOVASCULAR RISK Less than 200 mg/dl Low Risk 200 to 239 mg/dl Borderline Risk 240 mg/dl and greater High Risk Performed By: #### 0 0121, 94587, 67865, 33204, 98994, 43336, 89934, 87744 #### [facility] [address] [place] [address], [facility] Cholesterol in HDL [Mass/Vol] 41 mg/dL Normal 23-92 [facility] Comment on above: Result Comment: Slig ht variation in normal range could be due to gender and/or age. HDL CHOLESTEROL REFERENCE RANGE: 20 years and older Cardiovascular Risk > or =60 mg/dL Desirable 40 TO 59 mg/dL Low Risk <40 mg/dL High Risk Performed By: #### 0 0121, 24637, 90671, 32973, 36728, 03383, 95676, 75837 #### [facility] [address] [place] [address], [facility] Cholesterol in LDL [Mass/Vol] 28 mg/dL Normal 0-130 [facility] Comment on above: Result Comment: LDL IS A CALCULATION LDL IS ONLY VALID IF THE TRIG IS LESS THAN 400. Performed By: #### 0 0121, 06665, 09200, 22430, 83824, 71306, 21393, 85321 #### [facility] [address] [place] [address], [facility] Cholesterol.total/Chol esterol in HDL [Mass ratio] 1.9 {ratio} Normal .0-4.5 [facility] Comment on above: Performed By: #### 0 0121, 24534, 71817, 26654, 64543, 65945, 55403, 78285 #### [facility] [address] [facility] [place] [address], [facility] NON-HDL CHOLESTEROL 37 mg/dL Normal [facility] Comment on above: Performed By: #### 0 0121, 71675, 00874, 88102, 84335, 12050, 63479, 19324 #### [facility] [address] [place] [address], [facility] Triglyceride [Mass/Vol] 44 mg/dL Normal 40-149 [facility] Comment on above: Result Comment: TRIG LYCERIDE REFERENCE RANGE: 20 YEARS AND OLDER CARDIOVASCULAR RISK LESS THAN 150 mg/dl LOW RISK 150 TO 199 mg/dl BORDERLINE RISK 200 mg/dl AND GREATER HIGH RISK Performed By: #### 0 0121, 46754, 80415, 32172, 11937, 41120, 40840, 08232 #### [facility] [address] [place] [address], [place] VLDL CHOL 9 mg/dL Normal 0-40 [facility] Comment on above: Performed By: #### 0 0121, 92405, 23615, 40497, 98979, 14727, 33932, 00566 #### [facility] [address] [place] [address], [facility] MAGNESIUM BLOODon 02-16-2021 Magnesium [Mass/Vol] 1.5 mg/dL Low 1.9-2.7 [facility] Comment on above: Performed By: #### 4 5506, 52478, 57443, 35713, 09777, 30110 #### [facility] [address] [place] [address], [facility] PHOSPHORUS BLOODon Phosphate [Mass/Vol] 2.4 mg/dL Low 2.5-5.0 [facility] Comment on above: Performed By: #### 0 0121, 70306, 82254, 25551, 34200, 00059, 87284, 39611 #### [facility] [address] [facility] [place] [address], [facility] PROSPERAon 02-16-2021 PROSPERA KIT Results to be mailed directly to physician's office by reference lab. Normal [facility] Comment on above: Result Comment: Test performed by [id number] [place] [address] No result expected. For billing and tracking purposes only. Specimen collected for transplant patient and sent to requesting hospital per Dr instructions. No charge. Performed By: #### 4 5506, 57298, 55783, 99091, 15762, 84532 #### [facility] [address] [facility] [place] [address], [facility] RESULT Results to be mailed directly to physician's office by reference lab. Normal [facility] Comment on above: Performed By: #### 4 5506, 31186, 02069, 12428, 93197, 22498 #### [facility] [address] [facility] [place] [address], [facility] PTH INTACTon 02-16-2021 PTH INTACT 123 pg/mL High 12-88 [facility] Comment on above: Performed By: #### 4 5506, 76941, 92306, 66726, 29271, 99723 #### [facility] [address] [facility] [address] SINGLE ANTIGEN CLASS 1on METHOD Class I Single Antigen Normal [facility] Comment on above: Order Comment: Some [...] to frequency. Performed By: #### 4 5506, 15791, 52379, 38365, 94702, 74800 #### [facility] 3000 [facility]. [address] SINGLE ANTIGEN CLASS 2on COMMENTS Normal [facility] Comment on above: Order Comment: Some [...] probable, due to frequency. Result Comment: Sim simeonial specificites added to the watch list. Class II Antigen Microbeads Performed By: #### 4 5506, 64145, 79801, 87237, 34355, 30327 #### [facility] [address] [facility]. [address] Result Comment: No C lass I donor specific antibody identified Class I Antigen Microbeads METHOD Class II Single Antigen Normal [facility] Comment on above: Order Comment: Some [...] to frequency. Performed By: #### 4 5506, 13755, 97210, 36329, 96529, 21441 #### [facility] [address] SIGNED BY Normal [facility] Comment on above: Order Comment: Some [...] frequency. Result Comment: Jose A Lara MS,CHT(IRINEO),MT(ASCP) Casual[employer] Insurance Claim Adjuster, Transplant Immunology Performed By: #### 4 5506, 26683, 61555, 50041, 82428, 20628 #### [facility] [address] TACROLIMUSon 02-16-2021 Tacrolimus (Bld) [Mass/Vol] 7.0 ng/mL Normal 5.0-20.0 [facility] Comment on above: Result Comment: The [employer] Tacrolimus assay is a delayed one-step immunoassay for the quantitative determination of tacrolimus in human whole blood using the chemiluminescent microparticle immunoassay (CMIA) technology with flexible assay protocols, referred to as Chemiflex. Performed By: #### 4 5506, 32920, 08122, 82070, 54330, 24703 #### [facility] [address] [place] [address], [facility] TESTOSTERONE, FREE+SHBG+TOTA L ILon 02-16-2021 [place] Normal [facility] Comment on above: Result Comment: Test Performed by [employer] [address] [place] [address] - Released 02/16/2021 18:49 SEX HORM BIND GLOB 52 nmol/L Normal 11-80 [facility] Testosterone [Mass/Vol] 399 ng/dL Normal 220-1000 [facility] TESTOSTERONE, FREE 60.0 pg/mL Normal 47-244 [facility] Comment on above: Result Comment: The concentration of free testosterone is derived from a mathematical expression based on the constant for the binding of testosterone to albumin and/or sex hormone binding globulin. URIC ACID BLOODon 02-16-2021 Urate [Mass/Vol] 8.0 mg/dL High 4.4-7.6 [facility] Comment on above: Performed By: #### 0 0121, 02238, 48182, 04256, 30264, 55068, 31599, 85757 #### [facility] [address] [facility]. [address] VITAMIN D 25-HYDROXYon 02-16 VITAMIN D 25-OH 35.1 ng/mL Normal 30.0-80.0 [facility] Comment on above: Result Comment: >80. 0 Toxicity possible Performed By: #### 4 5506, 56980, 39909, 78915, 45263, 38224 #### [facility] [address] [facility]. [address] Vital Signs Date Time Vital Sign Value Performing Clinician Facility 02-16-2024 08: Body height 167.6 cm Jericho Mccarthy MD Work Phone: [facility] 02-16-2024 08: Body mass index (BMI) [Ratio] 24.37 kg/m2 Jericho Mccarthy MD Work Phone: [facility] 02-16-2024 08: Body temperature 97.5 [degF] Jericho Mccarthy MD Work Phone: [facility] 02-16-2024 08: Body weight 68.49 kg Jericho Mccarthy MD Work Phone: [facility] 02-16-2024 08:19-0400 Diastolic blood pressure 60 mm[Hg] Jericho Mccarthy MD Work Phone: [facility] 02-16-2024 08:19-0400 Heart rate 57 /min Jericho Mccarthy MD Work Phone: [facility] 02-16-2024 08:19-0400 Respiratory rate 18 /min Jericho Mccarthy MD Work Phone: [facility] 02-16-2024 08:19-0400 SaO2% (BldA) [Mass fraction] 98 % Jericho Mccarthy MD Work Phone: [facility] 02-16-2024 08:19-0400 Systolic blood pressure 120 mm[Hg] Jericho Mccarthy MD Work Phone: [facility] 03-05-2022 09:30-0400 Diastolic blood pressure 74 mm[Hg] MD Jericho Mccarthy Work Phone: [facility] 03-05-2022 09:30-0400 Heart rate 58 /min MD Jericho Mccarthy Work Phone: [facility] 03-05-2022 09:30-0400 Respiratory rate 18 /min MD Jericho Mccarthy Work Phone: [facility] 03-05-2022 09:30-0400 SaO2% (BldA) [Mass fraction] 99 % MD Jericho Mccarthy Work Phone: [facility] 03-05-2022 09:30-0400 Systolic blood pressure 133 mm[Hg] MD Jericho Mccarthy Work Phone: [facility] 03-05-2022 07:01-0400 Body height 167.64 cm MD Jericho Mccarthy Work Phone: [facility] 03-05-2022 07:01-0400 Body temperature 97.9 [degF] MD Jericho Mccarthy Work Phone: [facility] 03-05-2022 07:01-0400 Body weight 74.84 kg MD Jericho Mccarthy Work Phone: [facility] 01-21-2022 10:30-0400 Body height 167.64 cm Tj Maira Other [employer] Other 01-21-2022 10:30-0400 Body mass index (BMI) [Ratio] 26.47 kg/m2 Tj Maira Other [employer] Other 01-21-2022 10:30-0400 Body weight 74.39 kg Tj Wells Other [employer] Other 01-21-2022 10:30-0400 Diastolic blood pressure 71 mm[Hg] Tj Wells Other [employer] Other 01-21-2022 10:30-0400 Systolic blood pressure 148 mm[Hg] Tj Wells Other [employer] Other Encounters Encounter Date Encounter Type Care Provider Facility Start: 06-18-2024 End: 06-18-2024 [facility] Start: 06-09-2024 End: 06-09-2024 [facility] Start: 06-04-2024 End: 06-04-2024 [employer] Result Encounter Generic External Data Provider [facility] Unsolicited Start: 06-04-2024 End: 06-04-2024 [employer] Result Encounter Generic External Data Provider [...] [facility] Start: 02-16-2024 End: 02-16-2024 Bamboo flowscristobal Mccarthy [...] Available Start: 02-11-2024 End: 02-11-2024 ambulatory [facility]ANA [facility] Start: 02-06-2024 End: 02-06-2024 [employer] Result Encounter Generic External Data Provider [facility] External [facility] Unsolicited Start: 02-06-2024 End: 02-06-2024 Clinis[employer] Result Encounter Generic External Data Provider [facility] Unsolicited Start: 02-02-2024 End: 02-02-2024 Bamboo flowsheet Rajesh Gaines MD Work Phone: [facility] Start: 02-02-2024 End: 02-02-2024 Luisitoboo flowscristobal Gaines MD Work Phone: [facility] [...] Unsolicited Start: 10-31-2023 End: 10-31-2023 ambulatory SANTANA [facility] Start: 08-25-2023 End: 08-25-2023 ambulatory JERICHO MCCARTHY Not Available Start: 05-22-2023 End: 05-22-2023 ambulatory JERICHO MCCARTHY [...] Facility:[facility] Start: 03-08-2022 End: 03-09-[address] SHAINA SUBRAMANIAN Facility:[facility] Start: 03-05-2022 End: 03-05-2022 ambulatory Tj Wells Facility:[facility] Start: 03-05-2022 End: 03-05-2022 Admission to same day surgery center MD Jericho Mccarthy Work Phone: [facility] Start: 03-05-2022 End: 03-05-2022 ambulatory MD Jericho Mccarthy Work Phone: [facility] Work Phone: Start: 03-01-2022 End: 03-01-2022 ambulatory Tj Wells Facility:[facility] Start: 03-01-2022 End: 03-01-2022 ambulatory MD Jericho Mccarthy Work Phone: [facility] Work Phone: Start: 03-01-2022 End: 03-01-2022 Patient encounter procedure MD Jericho Mccarthy Work Phone: [facility] Start: 02-01-2022 End: 02-02-[address] DOCTOR MCCABE Facility:[facility] Start: 01-21-2022 End: 01-21-2022 ambulatory Tj Wells Other [employer] Other Start: 01-21-2022 Office outpatient ne w 45 minutes Tj Wells [facility] Start: 01-04-2022 End: 01-05-[address] SHAINA SUBRAMANIAN Facility:[facility] Start: 11-30-2021 End: 12-01-[address] DOCTOR MCCABE Facility:[facility] Start: 11-14-2021 End: 11-14-[address] JERICHO MCCARTHY Facility:[facility] Procedures Date Procedure Procedure Detail Performing Clinician Start: 06-04-2024 ALL CBC WITH AUTO DIFF Generic External Data Provider Start: 04-16-2024 ALL CBC WITH AUTO DIFF [...] ant neoplasm of colon [facility] Start: 07-08-2027 Screening for malign ant neoplasm of colon [facility] Start: 11-25-2025 Glaucoma screening Diabetes: R etinopathy Screening [facility] Start: 08-10-2025 Urine screening for protein Diabetes: Urine Protein Screening [facility] Comment on above: Postponed from 07/09 (Other Medical Reasons) Postponed from 12/15 (Other Medical Reasons) Start: 02-03-2025 End: 02-03-2025 Patient encounter procedure 02/03/2025 9:00 AM EDT Office Visit [facility] [address] [place] [id number] Rajesh Gaines MD [address] [place] [address] [facility] Start: 08-05-2024 Hemoglobin A1c measurement Diabetes: Hemoglobin A1C [facility] Start: 03-11-2024 End: 03-11-2024 Patient encounter procedure 03/11/2024 9:15 AM EDT Office Visit [facility] [address] [place] [address] Jericho Mccarthy MD [address] [place] [id number] [facility] Start: 02-16-2024 End: 02-16-2024 Patient encounter procedure [facility] Comment on above: Arrived Start: 02-02-2024 End: 02-02-2024 Patient encounter procedure [facility] Comment on above: Arrived Start: 01-11-2024 Influenza vaccination Influenza Vacc ine (#1) [facility] Start: 10-07-2023 Hemoglobin A1c measurement Diabetes: Hemoglobin A1C [facility] Start: 03-05-2022 [facility] Start: 01-31-2017 Pneumococcal Vaccine : 65+ Years (2 of 2 - PCV) Pneumococcal Vaccine: 65+ Years (2 of 2 - PCV) [facility] Start: 1950 Medicare Annual Wellness (AWV) Medicare Annual Wellness (AWV) [facility] Start: 1950 Screening for malign ant neoplasm of colon [facility] Patient Education [facility] Work Phone: Immunizations Immunization Date Immunization Notes Care Provider German campbell 02-18-2023 Influenza, High-dose Seasonal, Quadrivalent, Preservative Free Generic Provider [facility] 02-18-2023 influenza virus vaccine, unspecified formulation Generic Provider [facility] 04-30-2021 COVID-19 mRNA Bivale nt Booster (Pfizer) MD Jericho Mccarthy Work Phone: [facility] 04-30-2021 Influenza, Seasonal, Quadrivalent, Adjuvanted Generic Provider [facility] 08-01-2020 COVID-19 mRNA, Comirnaty (Moonshado) MD Jericho Mccarthy Work Phone: [facility] 07-12-2020 COVID-19 mRNA, Comirnaty (Moonshado) MD Jericho Mccarthy Work Phone: [facility] 02-09-2019 influenza, injectabl e, quadrivalent, contains preservative Generic Provider [facility] 02-13-2017 influenza, seasonal, injectable Tj Wells Other [employer] Other 02-09-2017 influenza virus vaccine, unspecified formulation Generic Provider [facility] 06-27-2016 influenza, seasonal, injectable Tj Wells Other [employer] Other 02-01-2016 pneumococcal polysaccharide vaccine, 23 valent Tj Wells Other [employer] Other Payers Date Payer Category Payer Private Health Insurance [id number] 2022 Private Health Insurance [id number] 2022 Unknown [employer] [id number] 2022-Present [id number] [employer] [place] [place] [address] [id number] 2022 Self-pay [id number] 2022 Unknown [id number] 2009 Medicare [id number] 1959 Medicare [id number] 1959 Private Health Insurance [id number] 1951 Unknown [id number] 1951 Unknown [id number] 1951 Unknown [id number] 1951 Unknown [id number] 1951 Unknown [id number] [id number] .593 1950 Unknown [id number] 2.16.840.1.379671.3.579.2 .593 1950 Unknown [id number] 2.16.840.1.584779.3.579.2 .593 1950 Unknown [id number] 2.16.840.1.239707.3.579.2 .593 1950 Unknown [id number] 2.16.840.1.731104.3.579.2 .593 1950 Unknown [id number] 2.16.840.1.021092.3.579.2 .593 1950 Unknown [id number] 2.16.840.1.897446.3.579.2 .593 1950 Unknown [id number] 2.16.840.1.804740.3.579.2 .593 1950 Unknown [id number] 2.16.840.1.446899.3.579.2 .1259 1950 Unknown [id number] 2.16.840.1.026615.3.579.2 .1259 1950 Unknown [id number] 2.16.840.1.110475.3.579.2 .1259 1950 Unknown [id number] 2.16.840.1.852174.3.579.2 .1259 Unknown [id number] 2.16.840.1.525653.3.579.2 .531 Unknown [id number] 2.16.840.1.409499.3.579.2 .531 Social History Date Type Detail Facility Unknown if ever smoked [employer] Other Start: 02-02-2024 End: 02-16-2024 Sex Assigned At [employer] Other Start: 11-11-2019 End: 04-15-2023 Tobacco smoking status SCIS Ex-smoker (finding) [facility] Start: 1950 Sex Assigned At Male F [facility] Start: 05-12-1980 End: 05-12-1992 History of tobacco use Current smoker [facility] Start: 05-12-1980 End: 05-12-1992 History of tobacco use Cigarette Smoker [facility] Start: 04-15-2023 Tobacco use and exposure Smokeless tobacco non-user [facility] Start: 02-02-2024 End: 02-16-2024 History of Social function [facility] Start: 1950 Sex assigned at Not on file N [facility] Medical Equipment Procedure Code Equipment Code Equipment Original Text Equipment Identifier Dates Creation or revision of arteriovenous fistula GRAFT ARTEGRAFT 6MM X 40CM Start: 01-14-2017 Creation or revision of arteriovenous fistula GRAFT ARTEGRAFT 6MM X 40CM FDA Start: 01-14-2017 Goals Date Patient Goal Desired Activity /State Clinical Notes 09-09-2009 to 06-18-2024 Jericho Mccarthy MD - 02/16/2024 8:49 AM Donna Mcacrthy MD - 02/16/2024 8:49 AM Donna Mccarthy MD - 02/16/2024 8:48 AM Donna Mccarthy MD - 02/16/2024 8:15 AM EDT Note Date & Type Note Facility 06-18-2024 Note Attestation signed by Ananda Pan MD at 06/22/2024 1:41 PM I personally saw and examined the patient on the same date of service as resident/fellow Baron Nguyen MD. I discussed the findings and therapeutic plan with the Baron Nguyen MD. I agree with the documentation, except for any edits/updates below. Ananda Pan MD Faculty, Division of Nephrology, Department of Medicine, [facility]. Nephrology Transplant Clinic Patient : Roger Kerr; 73 y.o. REASON FOR VISIT: Follow up for history of kidney transplantation. HPI: 06/18/24: Roger Kerr presents for follow-up: Patient denied any symptoms No dyspnea on exertion. No leg swelling. Adequate energy level. Adequate appetite. No diarrhea. No dizziness on standing or walking. No fevers or recent illness. BACKGROUND Roger Kerr is a 73 y.o. male end-stage renal disease secondary to polycystic kidney [...] transfused 1 U of PRBC with dialysis. ASSESSMENT & VISIT DIAGNOSES: 1. Encounter for aftercare following kidney transplant 2. Kidney replaced by transplant 3. Immunosuppressive management encounter following kidney transplant 4. Essential hypertension 5. Hypomagnesemia DISCUSSION & PLAN - point by point: Kidney allograft function & status: Stable with Cr of 0.9 mg/dL Immunosuppressants: Prograf 0.5 mg BID Mycophenolate 720 mg BID Anti-microbials / Prophylaxis: Completed Blood pressure, heart rate and volume status: Visit Vitals BP 153/77 (BP Location: Right arm, Patient Position: Sitting, BP Cuff Size: Adult) Pulse 56 Temp 36.7 ???C (98.1 ???F) (Oral) Resp 15 Amlodipine 10 mg Daily, Coreg 12.5 mg BID, Lisinopril 20 mg Daily BP is well controlled at home Rest of care: Hypomagnesemia: last Mg levels were 1.4, Pt gets diarrhea with Mag Ox, will switch to Mag Glycinate, c/w Amiloride 5 mg Daily Pt refused Mg infusion today F/U repeat Mg after one week Orders Placed This Encounter Procedures POCT urinalysis dipstick manually resulted Requested Prescriptions Signed Prescriptions Disp Refills magnesium glycinate 100 mg tablet 90 tablet 11 Sig: Take 200 mg by mouth three times daily. No images are attached to the encounter or orders placed in the encounter. FOLLOW UP: Follow up: 6 month SUBJECTIVE & OBJECTIVE DATA: In addition to above: Review of Systems Constitutional: Negative for chills, fatigue and fever. Respiratory: Negative for cough, shortness of breath and wheezing. Cardiovascular: Negative for chest pain, palpitations and leg swelling. Gastrointestinal: Negative for abdominal pain, diarrhea, nausea and vomiting. Allergic/Immunologic: Positive for immunocompromised state. Visit Vitals BP 153/77 (BP Location: Right arm, Patient Position: Sitting, BP Cuff Size: Adult) Pulse 56 Temp 36.7 ???C (98.1 ???F) (Oral) Resp 15 Ht 1.676 m (5' 6 ) Wt 71.9 kg (158 lb 8.2 oz) SpO2 98% BMI 25.58 kg/m??? Smoking Status Former BSA 1.83 m??? Wt Readings from Last 3 Encounters: 06/18/24 71.9 kg (158 lb 8.2 oz) 06/09/24 68 kg (150 lb) 02/11/24 66.7 kg (147 lb) Physical Exam Constitutional: General: He is not in acute distress. HENT: Head: Normocephalic and atraumatic. Eyes: General: No scleral icterus. Cardiovascular: Rate and Rhythm: Normal rate. Heart sounds: No gallop. Pulmonary: Breath sounds: No wheezing or rales. Abdominal: Tenderness: There is no abdominal tenderness. Musculoskeletal: General: No tenderness. Cervical back: Neck supple. Right lower leg: No edema. Left lower leg: No edema. Skin: Coloration: Skin is not jaundiced. Neurological: Mental Status: He is alert and oriented to person, place, and time. Recent Labs I have reviewed the patient's [...] 04/28/2023 1105 URICAC 7.8 (H) 10/31/2021 0837 ALBUMIN 4.4 07/09/2023 0913 PROT 6.8 02 (more content not included)... [facility] 06-16-2024 Note After [employer] at message from Santana Villegas that he will see pt for FU, this coordinator left a voicemail message for the pt to contact the clinic ([facility]) for his RV time on 06/18/24. [facility] 06-09-2024 Note SUBJECTIVE Roger Kerr is a 73 y.o. year old male patient being seen for No chief complaint on file. HPI 06/09/2024: Roger Kerr is a 73 yo male being seen today for a one month FU. PMH of HFimpEF EF 65% currently, pulmonary hypertension, CAD, and hypertension. Denies chest pain, intermittent palpitations last few seconds infrequently. Mild ORTEGA but reports this as much improved. He has no concerns or complaints during this visit. No LE edema on exam. Doing well overall. Past Medical History: Diagnosis Date CHF (congestive heart failure) ([facility]/HCC) Chronic kidney disease Coronary artery disease Hypertension Pulmonary hypertension (CMS/HCC) Past Surgical History: Procedure Laterality Date AV FISTULA PLACEMENT CARDIAC CATHETERIZATION CATARACT EXTRACTION COLONOSCOPY HAND SURGERY TRANSPLANTATION RENAL Patient Active Problem List Diagnosis Cataract Congestive heart failure (CMS/HCC) Coronary atherosclerosis End-stage renal disease ([facility]/HCC) History of renal transplant Peripheral vascular disease (CMS/HCC) Increased infection risk status post immunosuppressive therapy Multiple congenital cysts of kidney Moderate mixed hyperlipidemia not requiring statin therapy COLD (chronic obstructive lung disease) (CMS/HCC) Essential hypertension, benign Pleurisy with effusion Polycystic kidney DAVID (acute kidney injury) ([facility]/HCC) Hypomagnesemia Anemia of renal disease Basal cell carcinoma (BCC) of dorsum of nose Chronic heart failure with preserved ejection fraction (HFpEF) ([facility]/HCC) Type 2 diabetes mellitus with hyperglycemia, with long-term current use of insulin ([facility]/HCC) family history includes ALS in his brother; Coronary artery disease in his mother; Cystic kidney disease in his brother, father, mother, and sister; Diabetes in his mother; Heart disease in his brother; Hypertension in his father and mother; Skin cancer in his father; cabg in his mother. Social History Tobacco Use Smoking status: Former Types: Cigarettes Smokeless tobacco: Never Vaping Use Vaping status: Never Used Substance Use Topics Alcohol use: Yes Alcohol/week: 1.0 standard drink of alcohol Types: 1 Cans of beer per week Drug use: Never ROS OBJECTIVE Visit Vitals BP 122/66 (BP Location: Right arm, Patient Position: Sitting) Pulse 56 Ht 1.676 m (5' 6 ) Wt 68 kg (150 lb) SpO2 98% BMI 24.21 kg/m??? Smoking Status Former BSA 1.78 m??? Physical Exam Constitutional: No acute distress. Psychiatric: Mental Status: alert and normal affect. Insight: good judgement. Eyes: Lids and Conjunctivae: non-injected and no discharge. Pupils: PERRLA. Neck: Neck: supple and trachea midline. Jugular Veins: normal jugular venous pressure. Lungs: Respiratory Effort: unlabored. Auscultation: no rales or rhonchi and normal breath sounds. Cardiovascular: Rate And Rhythm: regular. Heart Sounds: normal S1 and S2. Systolic Murmur: not heard. Diastolic Murmur: not heard. Extremities: no cyanosis, edema, or peripheral signs of emboli. Peripheral Pulses: Pulses: full and equal in all extremities except if noted. Abdomen: Inspection and Palpation: non distended or tender and soft. Skin: Inspection and Palpation: warm and dry. Allergies Allergies Allergen Reactions Nsaids (Non-Steroidal Anti-Inflammatory Drug) Medications Current Outpatient Medications: aMILoride (Midamor) 5 mg tablet, Take 1 tablet (5 mg) by mouth in the morning., Disp: 90 tablet, Rfl: 3 amLODIPine (Norvasc) 10 mg tablet, Take 1 tablet (10 mg) by mouth once daily as directed., Disp: 90 tablet, Rfl: 0 atorvastatin (Lipitor) 10 mg tablet, Take 1 tablet (10 mg) by mouth every other day., Disp: 45 tablet, Rfl: 3 carvedilol (Coreg) 12.5 mg tablet, take 1 tablet by mouth once daily with breakfast and 1 tablet with EVENING MEAL, Disp: 180 tablet, Rfl: 3 cinacalcet (Sensipar) 30 mg tablet, Take 1 tablet every day by oral route., Disp: 90 tablet, Rfl: 3 insulin glargine (Lantus Solostar U-100 Insulin) 100 unit/mL (3 mL) injection pen, Inject 20 Units under the skin at bedtime., Disp: 3 mL, Rfl: 2 lisinopril 20 mg tablet, Take 1 tablet (20 mg) by mouth in the morning., Disp: 90 tablet, Rfl: 3 magnesium oxide (Mag-Ox) 400 mg (241.3 mg magnesium) tablet, Take 2 tablets (800 mg) by mouth in the morning, at noon, and at bedtime. take 2 tablets by mouth three times a day with meals (Patient taking differently: Take 1,200 mg by mouth two times daily. take 2 tablets by mouth three times a day with meals), Disp: 180 tablet, Rfl: 11 metFORMIN (Glucophage) 500 mg tablet, Take 1 tablet (500 mg) by mouth with breakfast and with evening meal., Disp: 60 tablet, Rfl: 0 mycophenolate (Myfortic) 180 mg EC tablet, Take 4 tablets (720 mg) by mouth in the morning and at bedtime., Disp: 720 tablet, Rfl: 3 omeprazole OTC (PriLOSEC OTC) 20 mg EC tablet, Take 1 tablet (20 mg) by mouth before breakfast. Do not crush, c (more content not included)... [facility] 06-09-2024 Note Patient here for 1 y ear follow up CAD, pulmonary hypertension, and CHF. Had echo in Mar 2024. Had lipid panel last week. Denies chest pain. Says his ORTEGA and palpitations are no more than usual for him. LE edema resolves by morning. Review of Systems Cardiovascular: Positive for dyspnea on exertion, leg swelling and palpitations. Musculoskeletal: Positive for arthritis, back pain, joint pain and myalgias. Neurological: Positive for light-headedness. All other systems reviewed and are negative. [facility] 06-04-2024 Note Reviewed over the ph one with Dr. Martines patients mag 1.4. To make sure patient is consistently taking his mag. Spoke to patient who said he will work on it, he has issues with diarrhea while on it. He will try Maalox and call us if diarrhea is not improved. [facility] 04-13-2024 Note Patient called reque sting refill on Furosamide. Patient was informed rx was discontinued in Jan by Santana. [facility] 02-16-2024 History of Present illness Narrative [...] 100 UNIT/ML pen documented in this encounter [facility] 02-11-2024 Note Transplant Clinic Patient : Roger Kerr; 73 y.o. Reason for Visit: History of renal transplant. SUBJECTIVE: History Of Present Illness: Patient is a 73-year-old male with a history of end-stage renal disease status post donor renal transplant on 02/26/2020. 02/11/2024 Patient returns regarding post transplant evaluation and immunosuppression regimen management. Urinary-denies dysuria or gross hematuria Bowel movements-occasional loose/diarrhea stool, without hematochezia. Endorses peripheral edema, noticeable by evening Feels cold often, no fevers. Denies nausea, vomiting. Immunosuppression Tacrolimus 0.5 mg p.o. twice daily Myfortic 720 mg (4 tabs x 180mg), [...] morning finger stick at home. On 05/14/[address] Root: pt to consistently take Mag supplement and restart Amlodipine and continue amiloride for low Mag. Pt inpatient 04/27/23 to 04/30/23 for DAVID/Hyponatrimea nd uncontrolled DM. Pt seeing PCP who treats DM next week. Instructed patient to consider [employer] locally to him: quan [place]. Pt [...] oz) Physical Exam Physical Exam: Constitutional: Roger E Kerr in NO acute distress Psychiatric: Normal affect, alert and oriented HEENT: No scleral icterus Pulmonary: LCTA bilat. Is not laboring to breathe Cardiovascular: Audible S1, S2. RRR. No obvious cyanosis of the extremities Abdomen: Soft, nontender. Bulging at RIF, otherwise graft scar is well healed. Extremities: No lower extremity edema Neurologic: Grossly nonfocal Skin: No jaundice Recent Labs I have reviewed the patient's most recent labs as listed below: Chemistry: Lab Results Component Value Date/Time NA 125 (L) 07/09/2023 0913 K 5.2 (H) 07/09/2023 0913 CL 93 (L) more content not included)... [facility] 02-02-2024 History of Present illness Narrative [...] Visit: 1 year documented in this encounter [facility] 01-19-2024 Note Mg 1.2 reviewed with PRUDENCIO Chou. Patient was previously refusing infusion for Magnesium and note from visit 10/30 was not complete. Per PRUDENCIO Chou on [employer] secure chat patient is to be on Amiliride 5mg daily, take Maalox and Mylanta with Mg. Phone call to patient who had stopped Amiliride in error and has been continuing to take Amlodipine which was discontinued. Patient requested script for Amiliride to be sent to [facility] in [place]. Reviewed magnesium rich foods with patient. Patient also states he is taking 2400 mg of magnesium daily. Instructed patient to get repeat labs this month. Patient verbalizes understanding. Also mailed standing lab order for monthly BK to patient to have added to standing labs. [facility] 10-31-2023 Note Patient notified abo ut mag level of 1.3, he stated he saw the HYDRANT SETTER here today and came up with a plan because he does not want an infusion. [facility] 10-31-2023 Note Transplant Clinic Patient : [...] morning finger stick at home. On 05/14/[address] Root: pt to consistently take Mag supplement and restart Amlodipine and continue amiloride for low Mag. Pt inpatient 04/27/23 to 04/30/23 for DAVID/Hyponatrimea nd uncontrolled DM. Pt seeing PCP who treats DM next week. Instructed patient to consider [employer] locally to him: quan del [place]. Pt [...] Physical Exam Physical Exam: Constitutional: Roger E Kerr in NO acute distress Psychiatric: Normal [...] 0837 CALCIUM 9.1 (more content not included)... [facility] 03-05-2022 Procedure note [facility] 01-21-2022 Evaluation note Encounter Date Diagnosis Assessment Notes Jan, Diarrhea (ICD-10 - R19.7) Colonoscopy Okay to take Imodium - 1 tablet every morning 12 Jan, 2022 Fecal urgency (ICD-10 - R15.2) [employer] Other 05-01-2010 History general Narrative - Reported* [...] Hospitalization History Kidney Issue; on transplant list ([facility]) 02/2018 Hospitalization History pulmonary embolism 0 [employer] Other Evaluation noteNo assessment information available [facility] Work Phone: evaluation note* Diagnosis Onset Date Resolution Status Diarrhea acute [facility] Work Phone: Evaluation note* Diagnosis Type 2 diabetes mellitus with hyperglycemia, with long-term current use of insulin ([facility])- Primary Essential hypertension, benign (CMS/HCC) Essential hypertension, benign Peripheral vascular disease (CMS/HCC) Unspecified peripheral vascular disease Type 2 diabetes mellitus with diabetic chronic kidney disease (CMS/HCC) Chronic kidney disease, stage 2 (mild) Type 2 diabetes mellitus with diabetic peripheral angiopathy without gangrene (CMS/HCC) documented in this encounter [facility] HealthcareEvaluation note* Diagnosis Sebaceous hyperplasia of face- Primary History of basal cell carcinoma Personal history of other malignant neoplasm of skin Lentigines documented in this encounter [facility] Healthcare[facility]ospital Discharge instructions Additional Instructions DISCHARGE INSTRUCTIONS [...] if you have any problems. -Office number [phone] Work Phone: Reason for visit NarrativePATIENT REFERRED BY DR. MCCARTHY FOR EVALUATION AND TREATMENT OF [place] [employer] Other Summary Purpose Family History No [...] section and content) DATE CREATED AUTHOR 07/13/2019 [facility] DATE CREATED AUTHOR AUTHOR'S ORGANIZ ATION 11/02/2021 [facility] DATE CREATED AUTHOR AUTHOR'S ORGANIZ ATION 03/12/2022 [facility] DATE CREATED AUTHOR AUTHOR'S ORGANIZ ATION 10/18/2022 [facility] DATE CREATED AUTHOR AUTHOR'S ORGANIZ ATION 02/16/2024 [facility] EPIC DATE CREATED AUTHOR AUTHOR'S ORGANIZ ATION 07/12/2024 [facility] Care Teams (unrecognized sec tion and content) Team Status: Inactive Member Role Status Dates Jericho Mccarthy MD Primary Care Provider Active Tj Wells MD Attending Provider Active Team Status: Active Member Role Status Dates Jericho Mccarthy MD Primary Care Provider Active 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 Relationship Specialty Start Date End Date Jericho Mccarthy MD [address] [place] [phone] PCP - General Family Medicine 08/25/23 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 Protection 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 Relationship Specialty Start Date End Date Jericho Mccarthy MD [address] [place] [phone] PCP - General Family Medicine 08/25/23 [employer] Protection 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 Relationship Specialty Start Date End Date Jericho Mccarthy MD [address] [place] [phone] PCP - General Family Medicine 08/25/23 Fire Protection 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 Relationship Specialty Start Date End Date Jericho Mccarthy MD [address] [place] [phone] PCP - General Family Medicine 08/25/23 Fire Protection 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 Relationship Specialty Start Date End Date Jericho Mccarthy MD [address] [place] [phone] PCP - General Family Medicine 08/25/23 Goals [...] BE BASED ON THE PRIMARY CLINICAL RECORDS. [facility]. provides no warranty or guarantee of the accuracy or completeness of information in this document.
[2024-07-23 07:58] LABS: Eosinophils Absolute Auto 0.2 10^3/uL (0.0-0.7); Eosinophils Percent Auto 5.4 % (0.9-7.0); Hematocrit 36.7 % (42.0-54.0); Hemoglobin 11.8 g/dL (14.0-18.0); Immature Granulocytes Abs Auto 0.03 10^3/uL (0.00-0.03); Lymphocytes Absolute Auto 0.8 10^3/uL (1.2-3.8); Lymphocytes Percent Auto 25.9 % (20.5-60.0); Mean Corpuscular HGB Conc 32.2 g/dL (29.9-35.2); Mean Corpuscular Hemoglobin 29.2 pg (25.9-34.0); Mean Corpuscular Volume 90.8 fL (80.0-94.0); Mean Platelet Volume 9.8 fL (9.5-13.5); Monocytes Absolute Auto 0.6 10^3/uL (0.3-0.8); Monocytes Percent Auto 20.1 % (1.7-12.0); Neutrophils Absolute Auto 1.4 10^3/uL (1.4-6.5); Neutrophils Percent Auto 46.6 % (43.0-75.0); Platelet Count 235 10^3/uL (150-450); Red Blood Count 4.04 10^6/uL (4.70-6.10); Red Cell Distribution Width 13.5 % (11.0-15.0); White Blood Count 2.9 10^3/uL (4.0-11.0)
[2024-07-23 11:09] LABS: Alanine Aminotransferase 20 U/L (16-63); Albumin Globulin Ratio 1.3; Albumin Level 3.9 g/dL (3.4-5.0); Alkaline Phosphatase 130 U/L (46-116); Aspartate Amino Transferase 16 U/L (15-37); BUN Creatinine Ratio 13.1; Bilirubin Direct 0.1 mg/dL (0.0-0.2); Bilirubin Total 0.3 mg/dL (0.2-1.0); Calcium 8.7 mg/dL (8.5-10.1); Carbon Dioxide 25.7 mmol/L (21.0-32.0); Chloride 104 mmol/L (98-107); Estimated GFR (African America >60 (>=60 mL/min/1.73m^2); Estimated GFR (Non-African Ame >60 (>=60 mL/min/1.73m^2); Glucose 87 mg/dL (74-106); Magnesium 1.5 mg/dL (1.8-2.4); Phosphorus 3.7 mg/dL (2.6-4.7); Potassium 4.7 mmol/L (3.5-5.1); Sodium 139 mmol/L (136-145); Total Protein 6.9 g/dL (6.4-8.2); Uric Acid 6.3 mg/dL (3.5-7.2)
[2024-07-26 10:11] LABS: BKV DNA, Quant PCR, Plasma Negative (Negative)
== END 2024-07-23 07:04 | disposition home or self-care (01) ==
PROVIDERS: PCP Family Medicine; Visit Provider Nurse Practitioner Family
DX: Z94.0 Kidney transplant status (principal); E13.9 Other specified diabetes mellitus without complications
CPT/HCPCS: 36415; 80053; 80197; 82248; 83735; 84100; 84550; 85025; 87799

== ENCOUNTER 2024-09-30 06:56 | Outpatient (OUT) | payer MEDICARE, OTHER, SELFPAY ==
--- OUTSIDE RECORDS SUMMARY | 2024-09-30 07:01 | XMS_ITS | Encounter Summary ---
Author Organization [facility] Address [address] [place] [address] Care Team Providers Care Records Supervisor Name Role Phone Jericho Centeno MD Primary Care Provider [phone] Jericho Abad PRISON KEEPER Unavailable [phone] Reason for Visit * Reason Comments Med Refill Encounter Details Date Type Department Care Team (Late st Contact Info) Description 07/03/2022 Refill [facility] [address] [place] [address] Sahil Mcghee MD [address] [facility] [address] [facility] [place] [address] Essential hypertension Social History Tobacco Use Types Packs/Day Years Used Date Smoking Tobacco: Former Cigarettes Smokeless Tobacco: Never Alcohol Use Standard Drinks/Week Comments Not Currently 0 (1 standard drink = 0.6 oz pur e alcohol) Sex and Gender Information Value Date Recorded Sex Assigned at Male 04/28/2023 1:43 PM EST Gender Identity Male 04/28/2023 1:43 PM EST Sexual Orientation Heterosexual or Straight 04/11 1:43 PM EST documented as of this encounter Plan of Treatment Not on file documented as of this encounter Visit Diagnoses Diagnosis Essential hypertension Unspecified essential hypertension documented in this encounter Care Teams Records Supervisor Relationship Specialty Start Date End Date Jericho Centeno MD [address] [place] [address] PCP - General 01/29/22 Jericho Abad, PRISON KEEPER [address] [place] [address] Nurse Practitioner Urology 04/16/22 documented as of this encounter
--- OUTSIDE RECORDS SUMMARY | 2024-09-30 07:01 | XMS_ITS | Clinical Summary ---
Author Organization [facility] Address [address] [place] [address] Care Team Providers Care Novelty Worker Name Role Phone Jericho Centeno MD Primary Care Provider [phone] Jericho Abad PRECISION MECHANICAL INSTRUMENT MAKER Unavailable [phone] Allergies Active Allergy Reactions Criticality Noted Date Comments Nsaids (Non-Steroidal Anti-I nflammatory Drug) 04/01/2022 Medications Medication Sig Dispensed Refills Start Date End Date Status sulfaSALAzine (Azulfidine) 500 mg EC tablet Take 500 mg by mouth in the morning and at bedtime. 03/05/2022 Active isopropyl alcohoL 70 % toweletteIndication s:DAVID (acute kidney injury),Diabetic ketoacidosis without coma associated with type 2 diabetes mellitus (CMS/HCC) Test daily before all meals/snacks and once before bedtime. 1 each 04/30/2023 Active insulin glargine (Lantus Solostar U-100 Insulin) 100 unit/mL (3 mL) injection penIndications:DAVID (acute kidney injury),Diabetic ketoacidosis without coma associated with type 2 diabetes mellitus (CMS/HCC) Inject 20 Units under the skin at bedtime. 3 mL 2 04/30/2023 Active metFORMIN (Glucophage) 500 mg tabletIndications:A KI (acute kidney injury),Diabetic ketoacidosis without coma associated with type 2 diabetes mellitus (CMS/HCC) Take 1 tablet (500 mg) by mouth with breakfast and with evening meal. 60 tablet 04/30/2023 Active omeprazole OTC (PriLOSEC OTC) 20 mg EC tabletIndications:A KI (acute kidney injury),Diabetic ketoacidosis without coma associated with type 2 diabetes mellitus (CMS/HCC) Take 1 tablet (20 mg) by mouth before breakfast. Do not crush, chew, or split. 30 tablet 2 04/30/2023 Active blood-glucose meter miscIndications:DAVID (acute kidney injury),Diabetic ketoacidosis without coma associated with type 2 diabetes mellitus (CMS/HCC) Test daily before all meals/snacks and once before bedtime. With 100 lancets and strips 1 each 05/01/2023 Active sildenafil (Revatio) 20 mg tabletIndications:P ulmonary hypertension (CMS/HCC) take 1 tablet by mouth three times a day for 90 DAYS 270 tablet 3 11/28/2023 Active aMILoride (Midamor) 5 mg tabletIndications:H ypomagnesemia,Kidne y replaced by transplant Take 1 tablet (5 mg) by mouth in the morning. 90 tablet 3 01/19/2024 01/18/2025 Active carvedilol (Coreg) 12.5 mg tabletIndications:E ssential hypertension take 1 tablet by mouth once daily with breakfast and 1 tablet with EVENING MEAL 180 tablet 3 02/02/2024 Active tacrolimus (Prograf) 0.5 mg capsuleIndications: Kidney transplanted Take 1 capsule (0.5 mg) by mouth in the morning and at bedtime. 180 capsule 3 03/16/2024 Active mycophenolate (Myfortic) 180 mg EC tabletIndications:K idney transplanted Take 4 tablets (720 mg) by mouth in the morning and at bedtime. 720 tablet 3 03/16/2024 Active atorvastatin (Lipitor) 10 mg tabletIndications:C oronary artery disease, unspecified vessel or lesion type, unspecified whether angina present, unspecified whether little shell tribe or transplanted heart Take 1 tablet (10 mg) by mouth every other day. 45 tablet 3 03/30/2024 Active aspirin 81 mg EC tablet Take 81 mg by mouth in the morning. Active lisinopril 20 mg tabletIndications:E ssential hypertension Take 1 tablet (20 mg) by mouth in the morning. 90 tablet 3 07/05/2024 07/05/2025 Active amLODIPine (Norvasc) 10 mg tabletIndications:B enign hypertensive heart disease without congestive heart failure Take 1 tablet (10 mg) by mouth once daily as directed. 90 tablet 3 07/28/2024 07/28/2025 Active cinacalcet (Sensipar) 30 mg tabletIndications:A ftercare following organ transplant Take 1 tablet every day by oral route. 90 tablet 3 08/05/2024 Active Active Problems Problem Noted Date Diagnosed Date Anemia of renal disease 08/25/2023 Type 2 diabetes mellitus wit h hyperglycemia, with long-term current use of insulin 05/22/2023 Hypomagnesemia 05/19/2023 Basal cell carcinoma (BCC) of dorsum of nose DAVID (acute kidney injury) 04/27/2023 COLD (chronic obstructive lung disease) 04/16/2004/22/2023 Essential hypertension, benign 04/16/2023 1 06/23/2022 Pleurisy with effusion 04/16/2023 Polycystic kidney 04/16/2023 04/22/2023 Moderate mixed hyperlipidemia not requiring stat in therapy 04/16/2022 Cataract 01/29/2022 Congestive heart failure 01/29/2022 Coronary atherosclerosis 01/29/2022 Multiple congenital cysts of kidney 01/29/2022 Chronic heart failure with p reserved ejection fraction (HFpEF) 01/29/2022 Overview (06/09/2024): Recent EF 45-50% History of renal transplant 10/31/2021 Increased infection risk sta tus post immunosuppressive therapy 10/31/2021 Peripheral vascular disease 01/23/2018 End-stage renal disease 07/22/2009 Encounters Date Type Department Care Team Description 08/05/2024 Refill [facility] Transplant [address] [place] [address] Shahal Cox MA Aftercare following organ transplant 07/28/2024 Refill [facility] [address] [place] [address] Giovanna Campos MA Benign hypertensive heart disease without congestive heart failure 07/28/2024 Refill [facility] [address] [place] [address] Giovanna Campos MA Benign hypertensive heart disease without congestive heart failure 07/05/2024 Refill [facility] [address] [place] [address] Deanne Ulrich MA Essential hypertension from Last 3 Months Immunizations Name Administration Dates Next Due Influenza, Seasonal, Quadriv alent, Adjuvanted 04/30/2021 Influenza, Unspecified 02/09/2017 Influenza, injectable, quadrivalent 02/09/2019 Influenza, seasonal, injectable 02/13/2017,06/27 Pfizer SARS-CoV-2 Vaccination 04/30/2021, 021,07/12/2020 Pneumococcal Polysaccharide PPV23 02/01/2016 Family History Medical History Relation Name Comments ALS Brother Cystic kidney disease Brother Heart disease Brother Cystic kidney disease Father Hypertension Father Skin cancer Father Coronary artery disease Mother Cystic kidney disease Mother Diabetes Mother Hypertension Mother cabg Mother Cystic kidney disease Sister Relation Name Status Comments Brother Father Mother Sister Social History Tobacco Use Types Packs/Day Years Used Date Smoking Tobacco: Former Cigarettes Smokeless Tobacco: Never Alcohol Use Standard Drinks/Week Comments Yes 1 (1 standard drink = 0.6 oz pur e alcohol) Humiliation, Afraid, Rape, and Kick questionnair e Answer Date Recorded Within the last year, have y ou been afraid of your partner or ex-partner? No 04/27/2023 Emotionally Abused Not on file 04/27/2023 Physically Abused Not on file 04/27/2023 Sexually Abused Not on file 04/27/2023 Overall Financial Resource Strain (CARDIA) Answe r Date Recorded How hard is it for you to pa y for the very basics like food, housing, medical care, and heating? Not hard at all 04/27/2023 PHQ-2 Answer Date Recorded Patient Health Questionnaire-2 Score 0 06/18/2024 [facility] [place] [facility] Occupat ional Health - Occupational Stress Questionnaire Answer Date Recorded Do you feel stress - tense, restless, nervous, or anxious, or unable to sleep at night because your mind is troubled all the time - these days? Only a little 11/11/2022 [place] Safety & Environment Answer Date Rec orded Within the last year, have y ou been afraid of your partner or ex-partner? No 04/27/2023 Emotionally Abused Not on file 04/27/2023 Physically Abused Not on file 04/27/2023 Sexually Abused Not on file 04/27/2023 In the past year have you be en physically or sexually abused? 04/27/2023 Transportation Answer Date Recorded In the past 12 months, has l ack of transportation kept you from medical appointments or from getting medications? No 04/27/2023 Lack of Transportation (Non-Medical) Not on file 04/27/2023 Housing Stability Vital Sign Answer Singh e Recorded Unable to Pay for Housing in the Last Year Not o n file 04/27/2023 Number of Places Lived in the Last Year Not on f ile 04/27/2023 In the last 12 months, was t here a time when you did not have a steady place to sleep or slept in a residential (including now)? No 04/27/2023 Hunger Vital Sign Answer Date Recorded Within the past 12 months, y ou worried that your food would run out before you got the money to buy more. Never true 04/27/20 23 Ran Out of Food in the Last Year Not on file 04/27/2023 Sex and Gender Information Value Date Recorded Sex Assigned at Male 04/28/2023 1:43 PM EST Gender Identity Male 04/28/2023 1:43 PM EST Sexual Orientation Heterosexual or Straight 04/11 1:43 PM EST Last Filed Vital Signs Vital Sign Reading Time Taken Comments Blood Pressure 153/77 06/18/2024 10:21 AM EST Pulse 56 06/18/2024 10:21 AM EST Temperature 36.7 C (98.1 F) 06/18/2024 10:21 AM EST Respiratory Rate 15 06/18/2024 10:21 AM EST Oxygen Saturation 98% 06/18/2024 10:21 AM EST Inhaled Oxygen Concentration - - Weight 71.9 kg (158 lb 8.2 oz) 06/18/2024 10:21 AM EST Height 167.6 cm (5' 6 ) 06/18/2024 10:21 AM EST Body Mass Index 25.58 06/18/2024 10:21 AM EST Plan of Treatment Health Maintenance Due Date Last Done Comments CT Colonography 1951 FIT-DNA 1951 FIT 1951 FOBT 1950 Medicare Annual Wellness (AWV) 1950 Sigmoidoscopy 1950 Diabetes: Retinopathy Screening 12/15/1961 Diabetes: Urine Protein Screening 12/15/1970 Zoster Vaccines (1 of 2) 12/15/1970 Adult Tetanus 12/15/1973 Pneumococcal Vaccine: 65+ Years (2 of 2 - PCV) 01/31/2017 02/01/2016 Diabetes: Hemoglobin A1C 10/07/2023 024, 07/09/2023, 04/28/2023, Additional history exists COVID-19 Vaccine ( season) 2024 02/18/2023, 04/30/2021, 08/02/2020, Additional history exists Influenza Vaccine (Season Ended) 2025 02/18/2023, 04/30/2021, 02/09/2019, Additional history exists Fall Risk Screening 02/10/2025 02/11/2024 Depression Screening 06/18/2025 06/18/2024 Colonoscopy 07/08/2027 07/08/2017 Colorectal Cancer Screening 07/08/2027 HIB Vaccines Aged Out No longer eligi ble based on patient's age to complete this topic HPV Vaccines Aged Out No longer eligi ble based on patient's age to complete this topic IPV Vaccines Aged Out No longer eligi ble based on patient's age to complete this topic Meningococcal B Vaccine Aged Out No l onger eligible based on patient's age to complete this topic Meningococcal Vaccine Aged Out No adam paul eligible based on patient's age to complete this topic Rotavirus Vaccines Aged Out No longer eligible based on patient's age to complete this topic Procedures Procedure Name Priority Date/Time Associated Diagnosis Comments HEMOGLOBIN A1C Routine 07/09/2023 9:13 AM EST History of kidney transplant Impaired glucose tolerance from Last 3 Months or Most Recently Relevant to Health Maintenance Results * (ABNORMAL) Hemoglobin A1c (07/09/2023 9:13 AM EST) Hemoglobin A1C 7.2(H) 4.0 - 6.0 % 07/09/2023 1:29 PM EST [facility] Estimated Average Glucose 160 mg/dL 07/09/2023 1:29 PM EST [facility]) Blood Venous blood specimen / Unknown Venipuncture / Unknown 07/09/2023 9:13 AM EST 07/09/2023 9:13 AM EST [facility] LAB BLOOD ORDERABLES [facility] ([place]) [address] [place] [address] from Last 3 Months or Most Recently Relevant to Health Maintenance Advance Directives * Full Code (Latest Code Status on File) Date Activated Date Inactivated Comments 04/27/2023 11:12 PM 04/30/2023 3:41 PM Care Teams Novelty Worker Relationship Specialty Start Date End Date Jericho Centeno MD [address] [place] [address] PCP - General 01/29/22 Jericho Abad, PRECISION MECHANICAL INSTRUMENT MAKER [address] [place] [address] Nurse Practitioner Urology 04/16/22
--- OUTSIDE RECORDS SUMMARY | 2024-09-30 07:01 | XMS_ITS | Encounter Summary ---
Author Organization [facility] Address [address] [place] [address] Care Team Providers Care Wharf Tender Name Role Phone Jericho Centeno MD Primary Care Provider [phone] Jericho Centeno MD Primary Care Provider [phone] Encounter Details Date Type Department Care Team (Late Contact Info) Description 01/30/2023 Abstract [facility] [address] [facility] [address] [place] [address] Ashley Traore MD [address] [facility] [address] [place] [address] Social History Tobacco Use Types Packs/Day Years Used Date Smoking Tobacco: Former Cigarettes Smokeless Tobacco: Never Sex and Gender Information Value Date Recorded Sex Assigned at Not on file Legal Sex Male 11:30 PM EDT Gender Identity Not on file Sexual Orientation Not on file documented as of this encounter Plan of Treatment Upcoming Encounters Date Type Department Care Team (Late st Contact Info) Description 02/03/2025 9:00 AM EDT Office Visit [facility] [address] [facility] [address] [place] [address] Ashley Traore MD [address] [facility] [address] [place] [address] documented as of this encounter Visit Diagnoses Not on filedocumented in this encounter Care Teams Wharf Tender Relationship Specialty Start Date End Date Jericho Centeno MD PCP - General Family Medicine 03/24/23 08/24/23 Jericho Centeno MD [address] [facility] [place] [address] PCP - General Family Medicine 08/25/23 documented as of this encounter
--- OUTSIDE RECORDS SUMMARY | 2024-09-30 07:01 | XMS_ITS | Encounter Summary ---
Author Organization [facility] Address [address] [place] [address] Care Team Providers Care Visual Manager Name Role Phone Jericho Centeno MD Primary Care Provider [phone] Jericho Abad HOUSEKEEPER HOME Unavailable [phone] Reason for Visit * Reason Comments Med Refill Encounter Details Date Type Department Care Team (Late st Contact Info) Description 05/29/2023 Refill [facility] Transplant [address] [place] [id number] Woodrow Root MD [address] [place] [address] Aftercare following organ transplant Social History Tobacco Use Types Packs/Day Years [...] Date Recorded Patient Health Questionnaire-2 Score 0 05/19/2023 [place] [facility] Occupat ional Health - Occupational Stress Questionnaire Answer Date Recorded Do you feel stress - tense, restless, nervous, or anxious, or unable to sleep at night because your mind is troubled all the time - these days? Only a little 11/11/2022 [place] Safety & Environment Answer Date Rec orded [...] place to sleep or slept in a fci (including now)? No 04/27/2023 Hunger Vital Sign [...] PM EST documented as of this encounter Functional Status Functional Status Response Date of Assess ment Are you deaf or do you have serious difficulty h earing? No 04/30/2023 Are you blind or do you have serious difficulty seeing, even when wearing glasses? No 04/30/2023 Do you have serious difficul ty walking or climbing stairs? No 04/30/2023 Do you have serious difficulty dressing or bathi ng? No 04/30/2023 Because of a physical, menta l, or emotional condition, do you have serious difficulty doing errands alone such as visiting the doctor? No 04/30/2023 Cognitive Status Response Date of Assessm ent Because of a physical, menta l, or emotional condition, do you have serious difficulty concentrating, remembering, or making decisions? (5 years old or older) No 04/30/2023 documented as of this encounter Plan of Treatment Not on file documented as of this encounter Visit Diagnoses Diagnosis Aftercare following organ transplant documented in this encounter Care Teams Visual Manager Relationship Specialty Start Date End Date Jericho Centeno MD [address] [place] [address] PCP - General 01/29/22 Jericho Abad CNP [address] [place] [address] Nurse Practitioner Urology 04/16/22 documented as of this encounter
--- OUTSIDE RECORDS SUMMARY | 2024-09-30 07:01 | XMS_ITS ---
Author Organization [facility] Address [address] [place] [address] Care Team Providers Care Fashion Marketer Name Role Phone Jericho Centeno MD Primary Care Provider [phone] Jericho Abad BRUSH LOADER AND HANDLE ATTACHER Unavailable [phone] Transplant Episode Kidney Recipient [facility] ([place], [place]) - [facility] Organ Received: Kidneys En Bloc Transplanted on 02/26/2020 Marked as Active Follow-up on 02/26/2020 Kidney CoordinatorRadha Interiano RN Phone: N/A Fax: N/A Email: N/A [place] Organ Diagnosis Organ Primary Contributory Kidney Polycystic Kidneys Donor Information Organ ABO Source Meets Risk Criteria HLA Match Mismatches Cross Match Kidneys En Bloc Transplanted A DCD No A: B: DR: Kidneys En Bloc Donor Serology Results Anti-CMV CMV IgG: Negative HBsAg HBsAg: Negative Anti-HBcAb HBC Total: Negative HBsAb No results on file HBV DNA No results on file Anti-HCV HCV: Negative Anti-HIV I/II HIV-1: Negative Anti-HTLV I/II HTLV: Negative RPR/VDRL RPR: Negative EBV IgG EBV VCA IgG: Positive EBV IgM EBV VCA IgM: Negative EBNA No results on file Toxoplasma No results on file SARS CoV-2 No results on file Care Team Name Role Phone Fax Email Radha Interiano RN Kidney Coordinator N/A N/A N/ A Nate Ley MD Surgeon N/A N/A N/A Events Post-Transplant Pre-Transplant Admitted: 02/26/2020 Referred: 02/01/2010 Transplanted: 02/26/2020 Evaluation began: 1 Discharged: 03/04/2020 [facility] qualified: 07/22/2009 Center waitlisted: 8 Dialysis History Dialysis History Start End Type Comments Center 07/22/2009 02/26/[address] [facility] Dialysis Center Information Center Phone Fax Address [facility] [phone] [place] [address], [facility] [address]
--- OUTSIDE RECORDS SUMMARY | 2024-09-30 07:01 | XMS_ITS | Referral Summary ---
Author Organization [facility] Address [address] [place] [address] Care Team Providers Care Viscose Cellar Worker Name Role Phone Jericho Centeno MD Primary Care Provider [phone] Jericho Abad LINUX ARCHITECT Unavailable [phone] Encounters Date Type Department Care Team Description 08/05/2024 Refill [facility] Transplant [address] [place] [id number] Shahla Cox MA Aftercare following organ transplant 07/28/2024 Refill [facility] [address] [place] [address] Giovanna Campos MA Benign hypertensive heart disease without congestive heart failure 07/28/2024 Refill [facility] [address] [place] [address] Giovanna Campos MA Benign hypertensive heart disease without congestive heart failure 07/05/2024 Refill [facility] [address] [place] [address] Deanne Ulrich MA Essential hypertension from Last 3 Months Allergies Active Allergy Reactions Criticality Noted Date [...] type, unspecified whether angina present, unspecified whether [place] or transplanted heart Take 1 tablet (10 [...] injury) 04/27/2023 COLD (chronic obstructive lung disease) 04/16/20 23 04/22/2023 Essential hypertension, benign 04/16/2023 1 06/23/2022 Pleurisy [...] vascular disease 01/23/2018 End-stage renal disease 07/22/2009 Immunizations Name Administration Dates Next Due Influenza, Seasonal, Quadriv alent, Adjuvanted 04/30/2021 Influenza, Unspecified 02/09/2017 Influenza, injectable, quadrivalent 02/09/2019 Influenza, seasonal, injectable 02/13/2017,06/27 Pfizer SARS-CoV-2 Vaccination 04/30/2021, 021,07/12/2020 Pneumococcal Polysaccharide PPV23 02/01/2016 Social History Tobacco Use Types Packs/Day Years [...] Recorded Patient Health Questionnaire-2 Score 0 06/18/2024 [facility] [place] of Occupat ional Health - Occupational Stress Questionnaire Answer Date Recorded Do you feel stress - tense, restless, nervous, or anxious, or unable to sleep at night because your mind is troubled all the time - these days? Only a little 11/11/2022 [place] Safety & Environment Answer Date Rec orded [...] place to sleep or slept in a intermediate (including now)? No 04/27/2023 Hunger Vital Sign [...] Mass Index 25.58 06/18/2024 10:21 AM EST Functional Status Functional Status Response Date of [...] (5 years old or older) No 04/30/2023 Plan of Treatment Not on file Procedures Procedure Name Priority Date/Time Associated Diagnosis Comments HEMOGLOBIN A1C Routine 07/09/2023 9:13 AM EST History of kidney transplant Impaired glucose tolerance from Last 3 Months or Most Recently Relevant to Health Maintenance Results * (ABNORMAL) Hemoglobin A1c (07/09/2023 9:13 AM EST) Hemoglobin A1C 7.2(H) 4.0 - 6.0 % 07/09/2023 1:29 PM EST [facility] ([facility]) Estimated Average Glucose 160 mg/dL 07/09/2023 1:29 PM EST [facility] ([facility]) Blood Venous blood specimen / Unknown Venipuncture / Unknown 07/09/2023 9:13 AM EST 07/09/2023 9:13 AM EST Nate Ley MD LAB BLOOD ORDERABLES [facility] ([facility]) [address] [place] [address] from Last 3 Months or Most Recently Relevant to Health Maintenance Advance Directives * Full Code (Latest Code Status on File) Date Activated Date Inactivated Comments 04/27/2023 11:12 PM 04/30/2023 3:41 PM Care Teams Viscose Cellar Worker Relationship Specialty Start Date End Date Jericho Centeno MD [address] [address] PCP - General 01/29/22 Jericho Abad, LINUX ARCHITECT [address] [place] [address] Nurse Practitioner Urology 04/16/22
--- OUTSIDE RECORDS SUMMARY | 2024-09-30 07:01 | XMS_ITS | Clinical Summary ---
Author Organization [facility] Healthcare Address [address] [place] [address] Care Team Providers Care Automobile Upholstery Trim Installer Name Role Phone Jericho Centeno MD Primary Care Provider [phone] Allergies Active Allergy Reactions Criticality Noted Date Comments Nsaids 04/01/2022 Medications mycophenolate (Myfortic) 180 MG EC tablet Take 4 tablets by mouth in the morning and 4 tablets before bedtime. Active tacrolimus (Prograf) 0.5 MG capsule Take by mouth 2 (two) times a day. Active cinacalcet (Sensipar) 30 MG tablet Take 30 mg by mouth in the morning. Take with food or shortly afer a meal. Swallow tablet whole; do not break or divide.. Active carvedilol (Coreg) 6.25 MG tablet Take 1 tablet by mouth in the morning and 1 tablet in the evening. Take with meals. Active lisinopril 20 MG tablet Take 20 mg by mouth in the morning. Active sildenafil (Revatio) 20 MG tablet Take 20 mg by mouth every 8 (eight) hours 3 Active amLODIPine (Norvasc) 10 MG tablet Take 10 mg by mouth in the morning. Active magnesium oxide (Mag-Ox) 400 MG tablet Take 400 mg by mouth in the morning and 400 mg in the evening and 400 mg before bedtime. Active omeprazole OTC (PriLOSEC OTC) 20 MG EC tablet Take 20 mg by mouth in the morning. Take before meals. 3 Active atorvastatin (Lipitor) 10 MG tablet Take 1 tablet every other day by oral route. 3 Active aspirin 81 MG EC tablet Take 81 mg by mouth Daily Active aMILoride (Midamor) 5 MG tablet Take 5 mg by mouth in the morning. 4 025 Active furosemide (Lasix) 20 MG tablet Take 20 mg by mouth Daily 4 Active metFORMIN (Glucophage) 500 MG tabletIndicati ons:Type 2 diabetes mellitus with hyperglycemia, without long-term current use of insulin (CMS/HCC) TAKE 1 TABLET BY MOUTH TWICE DAILY WITH BREAKFAST AND WITH DINNER 300 tablet 2 4 Active Basaglar KwikPen 100 UNIT/ML penIndications :Type 2 diabetes mellitus with hyperglycemia, with long-term current use of insulin (CMS/HCC) INJECT 20 UNITS SUBCUTANEOUSLY (UNDER THE SKIN) AT BEDTIME 15 mL 5 Active Active Problems Problem Noted Date Diagnosed Date Anemia of renal disease 08/25/2023 Type 2 diabetes mellitus wit h hyperglycemia, with long-term current use of insulin 05/22/2023 Assessment & Plan (02/16/2024 8:49 AM EDT): BS controlled and at times low. A1C 5.6 and decrease basaglar to 15 units daily. Stick to ADA diet and limit carbs. Assessment & Plan (08/25/2023 8:46 AM EDT): BS improved and continue lantus 20 units daily. Check TID. Stick to ADA diet and limit carbs. Assessment & Plan (05/22/2023 10:51 AM EST): BS improved and continue lantus 20 units daily. Check TID. Stick to ADA diet and limit carbs. Basal cell carcinoma (BCC) of dorsum of nose Cataract 05/02/2023 Overview (05/02/2023): s/p bilateral PHACO w IOL. Essential hypertension, benign 04/16/2023 Assessment & Plan (02/16/2024 8:48 AM EDT): BP controlled and monitor PRN. Assessment & Plan (08/25/2023 8:45 AM EDT): BP controlled and monitor PRN. Assessment & Plan (05/22/2023 10:51 AM EST): BP controlled and monitor PRN. COPD (chronic obstructive pulmonary disease) 10/2022 Assessment & Plan (08/25/2023 8:45 AM EDT): Breathing stable and follow with pulmonology. Pleurisy with effusion 04/16/2023 Polycystic kidney 04/16/2023 Moderate mixed hyperlipidemia not requiring stat in therapy 04/16/2022 Chronic heart failure with p reserved ejection fraction (HFpEF) 01/29/2022 Overview (05/02/2023): Recent EF 45-50% Assessment & Plan (08/25/2023 8:45 AM EDT): Edema controlled and continue medication. Elevated legs PRN. Assessment & Plan (05/22/2023 10:51 AM EST): Edema controlled and continue medication. Elevated legs PRN. Coronary atherosclerosis 01/29/2022 Overview (05/02/2023): nonobstructive Multiple congenital cysts of kidney 01/29/2022 Increased infection risk sta tus post immunosuppressive therapy 10/31/2021 History of renal transplant 10/31/2021 Assessment & Plan (08/25/2023 8:45 AM EDT): Follow with transplant team. Peripheral vascular disease 01/23/2018 Overview (05/02/2023): noted on CT scan 01/21/18 Assessment & Plan (02/16/2024 8:49 AM EDT): Follow with specialists. End-stage renal disease 07/22/2009 Resolved Problems Problem Noted Date Diagnosed Date Resolved Date Hypertensive disorder 05/02/20232023 Overview (05/02/2023): past 27 years, controlled with medications DAVID (acute kidney injury) 04/27/2023 Assessment & Plan (05/22/2023 10:50 AM EST): Recent DAVID but improved after treatment. Follow up with transplant team. Kidney replaced by transplant 04/16/2023 08/25/2023 Encounters Date Type Department Care Team Description 08/05/2024 Refill [facility] [address] [place] [address] Jericho Centeno MD Type 2 diabetes mellitus with hyperglycemia, with long-term current use of insulin ([facility]) 07/23/2024 Clinisync Result Encounter [facility] External Department Unsolicited Provider, Generic External Data from Last 3 Months Immunizations Immunization Administration Dates Next Due Influenza, High-dose Seasona l, Quadrivalent, Preservative Free 02/18/2023 Influenza, Seasonal, Quadrivalent, Adjuvanted Influenza, Unspecified 02/09/2017 Influenza, injectable, quadrivalent 02/09/2019 Influenza, seasonal, injectable 02/13/2017,06/27 Pneumococcal Polysaccharide PPSV23 02/01/2016 Family History Medical History Relation Name Comments Polycystic kidney disease Mother Relation Name Status Comments Mother Social History Tobacco Use Types Packs/Day Years Used Date Smoking Tobacco: Former Cigarettes 1 1992 Smokeless Tobacco: Never Sex and Gender Information Value Date Recorded Sex Assigned at Not on file Legal Sex Male 11:30 PM EDT Gender Identity Not on file Sexual Orientation Not on file Last Filed Vital Signs Vital Sign Reading Time Taken Comments Blood Pressure 120/60 02/16/2024 8:19 AM EDT Pulse 57 02/16/2024 8:19 AM EDT Temperature 36.4 C (97.5 F) 02/16/2024 8:19 AM EDT Respiratory Rate 18 02/16/2024 8:19 AM EDT Oxygen Saturation 98% 02/16/2024 8:19 AM EDT Inhaled Oxygen Concentration - - Weight 68.5 kg (151 lb) 02/16/2024 8:19 AM EDT Height 167.6 cm (5' 6 ) 02/16/2024 8:19 AM EDT Body Mass Index 24.37 02/16/2024 8:19 AM EDT Plan of Treatment Upcoming Encounters Date Type Department Care Team (Late st Contact Info) Description 02/03/2025 9:00 AM EDT Office Visit [facility] [address] [place] [phone] Ashley Traore MD [address] [place] [address] Health Maintenance Due Date Last Done Comments CT Colonography 1950 FIT-DNA 1950 FIT 1950 FOBT 1950 Medicare Annual Wellness (AWV) 1950 Sigmoidoscopy 1950 Pneumococcal Vaccine: 65+ Years (2 of 2 - PCV) 01/31/2017 02/01/2016 Diabetes: Hemoglobin A1C 08/05/2024 024, 07/09/2023, 07/09/2023, Additional history exists Influenza Vaccine (Season Ended) 2025 02/18/2023, 04/30/2021, 02/09/2019, Additional history exists Diabetes: Urine Protein Screening 08/10/2025 Postponed from 12/15/1970 (Other Medical Reasons) Diabetes: Retinopathy Screening 11/25/2025 11/26/2023 Colonoscopy 03/05/2032 03/05/2022, 07/08/2017 Colorectal Cancer Screening 03/05/2032 Procedures Procedure Name Priority Date/Time Associated Diagnosis Comments BKV QUANT PCR Routine 07/23/2024 7:32 AM EDT ALL MISCELLANEOUS TEST Routine 7:32 AM EDT METRO BILIRUBIN, DIRECT Routine 07/23/2024 7:32 AM EDT ALL MAGNESIUM Routine 07/23/2024 7:32 AM EDT ALL PHOSPHOROUS Routine 07/23/2024 7:32 AM EDT ALL URIC ACID Routine 07/23/2024 7:32 AM EDT [facility] CMP (CMP) (FOR REMOTE [facility] USE) Routine 07/23/2024 7:32 AM EDT ALL CBC WITH AUTO DIFF Routine 7:32 AM EDT from Last 3 Months Results * BKV QUANT PCR (07/23/2024 7:32 AM EDT) BKV DNA, QUANT PCR, PLASMA Negative Negative IU/mL TB Comment: No BK DNA detected. The linear range of the assay is 22 - 100,000,000 IU/mL. Performed at: [address] [id number] [place] Operator: Marbin Mccormick MD, Phone: [phone] [id number] BKV DNA,PLASMA TNP . TB 07/23/2024 7:32 AM EDT 07/23/2024 7:36 AM EDT Narrative CLINIS[facility] - 07/26/2024 10:11 AM EDT Generic External Data Provider LAB BLOOD ORDERAB LES Final Result Performing Organization Address [facility]/ZIP Co de Phone Number [facility] * METRO BILIRUBIN, DIRECT (07/23/2024 7:32 AM EDT) Pathologist [facility] BILIRUBIN DIRECT 0.1 0.0 - 0.2 mg/dL TB 07/23/2024 7:32 AM EDT 07/23/2024 7:36 AM EDT Narrative CLIN[facility]YNC - 07/23/2024 11:09 AM EDT Relcy External Data Provider CLIN[facility]NC F inal Result Performing Organization Address City/[facility]/ZIP Co de Phone Number [facility] * (ABNORMAL) [facility] CMP (CMP) (FOR REMOTE [facility] USE) (07/23/2024 7:32 AM EDT) SODIUM 139 136 - 145 mmol/L TBH POTASSIUM 4.7 3.5 - 5.1 mmol/L TBH CHLORIDE 104 98 - 107 mmol/L TBH CARBON DIOXIDE 25.7 21.0 - 32.0 mmol/L TBH ANION GAP 14.0 TBH GLUCOSE 87 74 - 106 mg/dL TBH BLOOD UREA NITROGEN 14.0 7.0 - 18.0 mg/dL TBH CREATININE 1.07 0.70 - 1.30 mg/dL TBH TBH EGFR-AF BOLIVIAN >60 >=60 mL/min/1. 73m 2 TBH TBH EGFR-NON AF BOLIVIAN >60 >=60 mL/min/1. 73m 2 TBH BUN CREATININE RATIO 13.1 TBH CALCIUM 8.7 8.5 - 10.1 mg/dL TBH BILIRUBIN TOTAL 0.3 0.2 - 1.0 mg/dL TBH ASPARTATE AMINO TRANSFERASE 16 15 - 37 U/L TBH ALANINE AMINOTRANSFERASE 20 16 - 63 U/L TBH ALKALINE PHOSPHATASE 130(H) 46 - 116 U/L TBH TOTAL PROTEIN 6.9 6.4 - 8.2 g/dL TBH ALBUMIN LEVEL 3.9 3.4 - 5.0 g/dL TBH GLOBULIN 3.0 g/dL TBH ALBUMIN GLOBULIN RATIO 1.3 TBH 07/23/2024 7:32 AM EDT 07/23/2024 7:36 AM EDT Narrative CLINISYNC - 07/23/2024 11:09 AM EDT Generic External Data Provider CLINISYNC F inal Result Performing Organization Address [facility] de Phone Number [facility] * ALL URIC ACID (07/23/2024 7:32 AM EDT) URIC ACID 6.3 3.5 - 7.2 mg/dL TB 07/23/2024 7:32 AM EDT 07/23/2024 7:36 AM EDT Narrative CLINISYNC - 07/23/2024 11:09 AM EDT Generic External Data Provider CLINISYNC F inal Result Performing Organization Address City/[facility] Co de Phone Number [facility] * ALL PHOSPHOROUS (07/23/2024 7:32 AM EDT) PHOSPHORUS 3.7 2.6 - 4.7 mg/dL [facility] 07/23/2024 7:32 AM EDT 07/23/2024 7:36 AM EDT Tabatha CLINISY[facility] - 07/23/2024 11:09 AM EDT us Generic External Data Provider [facility] F inal Result [facility] * ALL MISCELLANEOUS TEST (07/23/2024 7:32 AM EDT) [facility] MISCELLANEOUS TEST COMMENT . [facility] Comment: Test Ordered: [id number] Tacrolimus Rebaseline, [place] Tacrolimus by Immunoassay 4.9 [L ] ng/mL Reference Range: 5.0-20.0 Detection Limit = 0.8 ng/mL Target steady state trough concentration for Tacrolimus varies based on type of organ transplant immunosuppressive protocol and other patient specific factors. Tacrolimus trough concentrations should be interpreted in conjunction with clinical assessments of rejection and tolerability. Values obtained with different assay methods cannot be used interchangeably due to differences in assay methods and cross-reactivity with metabolites, nor should correction factors be applied. Therefore, consistent use of one assay for individual patients is recommended. Tacrolimus assay performed by [employer]oassay. Please note reference interval change [employer] will offer rebaseline testing (Test No. [id number]) through September 08, 2024. The rebaseline test will include results from both the current method ([employer]) and the new method (Elliott). All test results indicate the butcher of the test on the laboratory report. The rebaseline test for tacrolimus immunoassay is charged at the gonzalez for the new test; the test for the retiring method is performed at no additional charge. Tacrolimus IA by Thermo 5.9 ng/mL CB Reference Range: . Performed at: [address] [id number] [place] Operator: Toby Daley PhD, Phone: [phone] 07/23/2024 7:32 AM EDT 07/23/2024 7:36 AM EDT Narrative CLINISYWV - 07/24/2024 9:14 PM EDT [id number] TACROLIMUS, REBASELINE, IMMUNOASSAY Generic External Data Provider CL[facility] F inal Result [facility] TB * (ABNORMAL) ALL MAGNESIUM (07/23/2024 7:32 AM EDT) MAGNESIUM 1.5(L) 1.8 - 2.4 mg/dL TBH 07/23/2024 7:32 AM EDT 07/23/2024 7:36 AM EDT Narrative CLINISYNC - 07/23/2024 11:09 AM EDT Generic External Data Provider CLINISYNC F inal Result Performing Organization Address City/[facility]/ZIP Co de Phone Number CL[facility] TB * (ABNORMAL) ALL CBC WITH AUTO DIFF (07/23/2024 7:32 AM EDT) TBH WBC 2.9(L) 4.0 - 11.0 10 3/uL TBH TBH RBC 4.04(L) 4.70 - 6.10 10 6/uL TBH TBH HGB 11.8(L) 14.0 - 18.0 g/dL TB TB HCT 36.7(L) 42.0 - 54.0 % TBH TBH MCV 90.8 80.0 - 94.0 fL TBH TBH MCH 29.2 25.9 - 34.0 pg TBH TBH MCHC 32.2 29.9 - 35.2 g/dL TBH TBH RDW 13.5 11.0 - 15.0 % TBH TBH PLT 235 150 - 450 10 3/uL TBH TBH MPV 9.8 9.5 - 13.5 fL TBH NEUTROPHILS PERCENT AUTO 46.6 43.0 - 75.0 % TBH LYMPHOCYTES PERCENT AUTO 25.9 20.5 - 60.0 % TBH MONOCYTES PERCENT AUTO 20.1(H) 1.7 - 12.0 % TBH TBH EO % 5.4 0.9 - 7.0 % TBH BASOPHILS PERCENT AUTO 1.0 0.2 - 2.0 % TBH IMMATURE GRANULOCYTES PCT AUTO 1.0(H) 0.0 - 0.5 % TBH NEUTROPHILS ABSOLUTE AUTO 1.4 1.4 - 6.5 10 3/uL TBH LYMPHOCYTES ABSOLUTE AUTO 0.8(L) 1.2 - 3.8 10 3/uL TBH MONOCYTES ABSOLUTE AUTO 0.6 0.3 - 0.8 10 3/uL TBH TBH EO # 0.2 0.0 - 0.7 10 3/uL TBH BASOPHILS ABSOLUTE AUTO 0.0 0.0 - 0.1 10 3/uL TBH IMMATURE GRANULOCYTES ABS AUTO 0.03 0.00 - 0.03 10 3/uL TBH 07/23/2024 7:32 AM EDT 07/23/2024 7:36 AM EDT Narrative CLINISYNC - 07/23/2024 8:00 AM EDT us Generic External Data Provider CLINISYNC F inal Result Performing Organization Address City/State/[facility] Co de Phone Number [facility] from Last 3 Months Insurance MEDICARE [employer] [facility] [place] [id number] Care Teams Automobile Upholstery Trim Installer Relationship Specialty Start Date End Date Jericho Centeno MD [address] [place] [phone] PCP - General Family Medicine 08/25/23
--- OUTSIDE RECORDS SUMMARY | 2024-09-30 07:01 | XMS_ITS | Encounter Summary ---
Author Organization [facility] Address [address] [place] [address] Care Team Providers Care Car Greaser Name Role Phone Jericho Centeno MD Primary Care Provider [phone] Jericho Abad JUNIOR PHP DEVELOPER Unavailable [phone] Reason for Visit * Reason Comments Med Refill Encounter Details Date Type Department Care Team (Late st Contact Info) Description 12/03/2022 Refill [facility] at [facility] [address] [place] [address] Sahil Mcghee MD [address] [facility] [address] [facility] [place] [address] Essential hypertension Social History Tobacco Use Types Packs/Day Years Used Date Smoking Tobacco: Former Cigarettes Smokeless Tobacco: Never Alcohol Use Standard Drinks/Week Comments Not Currently 0 (1 standard drink = 0.6 oz pur e alcohol) PHQ-2 Answer Date Recorded Patient Health Questionnaire-2 Score 0 11/11/2022 [facility] Occupat ional Health - Occupational Stress Questionnaire Answer Date Recorded Do you feel stress - tense, restless, nervous, or anxious, or unable to sleep at night because your mind is troubled all the time - these days? Only a little 11/11/2022 Sex and Gender Information Value Date Recorded Sex Assigned at Male 04/28/2023 1:43 PM EST Gender Identity Male 04/28/2023 1:43 PM EST Sexual Orientation Heterosexual or Straight 04/11 1:43 PM EST COVID-19 Exposure Response Date Recorded In the last 10 days, have yo u been in contact with someone who was confirmed or suspected to have Coronavirus/COVID-19? No / Unsure 11/11/2022 8:04 AM EDT documented as of this encounter Plan of Treatment Not on file documented as of this encounter Visit Diagnoses Diagnosis Essential hypertension Unspecified essential hypertension documented in this encounter Care Teams Car Greaser Relationship Specialty Start Date End Date Jericho Centeno MD [address] [place] [address] PCP - General 01/29/22 Jericho Abad, JUNIOR PHP DEVELOPER [address] [place] [address] Nurse Practitioner Urology 04/16/22 documented as of this encounter
--- OUTSIDE RECORDS SUMMARY | 2024-09-30 07:01 | XMS_ITS | Encounter Summary ---
Author Organization [facility] Address [address] [facility] [place] [address] Care Team Providers Care Swage Tender Name Role Phone Jericho Centeno MD Primary Care Provider [phone] Reason for Visit * Reason Comments Med Refill Encounter Details Date Type Department Care Team (Late st Contact Info) Description [facility]/05[facility] [address] [place] [address] Jericho Centeno MD [address] [place] [address] Type 2 diabetes mellitus with hyperglycemia, with long-term current use of insulin ([facility]) Social History Tobacco Use Types Packs/Day Years Used Date Smoking Tobacco: Former Cigarettes 1992 Smokeless Tobacco: Never Sex and Gender Information Value Date Recorded Sex Assigned at Not on file Legal Sex Male 11:30 PM EDT Gender Identity Not on file Sexual Orientation Not on file documented as of this encounter Miscellaneous Notes * Telephone Encounter - LUCITA MARCANO - 08/05/2024 11:55 AM EDT MEDICATION SENT TO [facility] documented in this encounter Plan of Treatment Upcoming Encounters Date Type Department Care Team (Late st Contact Info) Description 02/03/2025 9:00 AM EDT Office Visit [facility] [address] [place] [phone] Ashley Traore MD [address] [place] [address] documented as of this encounter Visit Diagnoses Diagnosis Type 2 diabetes mellitus with hyperglycemia, with long-term current use of insulin ([facility]) documented in this encounter Care Teams Swage Tender Relationship Specialty Start Date End Date Jericho Centeno MD [address] [place] [address] PCP - General Family Medicine 08/25/23 documented as of this encounter
--- OUTSIDE RECORDS SUMMARY | 2024-09-30 07:01 | XMS_ITS | Clinical Summary ---
Author Organization [facility] Address [address] [place] [address] Phone Care Team Providers Care Rn Perioperative Name Role Phone Unavailable Primary Care Provider Unavailabl e Social History Tobacco Use Types Packs/Day Years Used Date Smoking Tobacco: Never Assessed Sex and Gender Information Value Date Recorded Sex Assigned at Not on file Legal Sex Male 1:17 PM EST Gender Identity Not on file Sexual Orientation Not on file Plan of Treatment Not on file
--- OUTSIDE RECORDS SUMMARY | 2024-09-30 07:01 | XMS_ITS | Encounter Summary ---
Author Organization [facility] Address [address] [place] [address] Care Team Providers Care Principal Statistical Programmer Name Role Phone Jericho Centeno MD Primary Care Provider [phone] Encounter Details Date Type Department Care Team (Late st Contact Info) Description 10/07/2023 Orders Only [facility] [address] [place] [address] Social History Tobacco Use Types Packs/Day Years [...] Office Visit [facility] [address] [facility] [address] [place] [address] Ashley Traore MD [address] [facility] [address] [place] [address] documented as of this encounter Procedures Procedure Name Priority Date/Time Associated Diagnosis Comments XR KNEE 4+ VIEWS LEFT Routine 10/03/2023 10:44 AM EDT XR CHEST 1 VIEW Routine 10/03/2023 10:05 AM EDT documented in this encounter Results * XR knee 4+ views left (10/03/2023 10:44 AM EDT) Anatomical Region Laterality Modality Lower Extremities, Knee Left Radiogra phic Imaging Jericho Centeno MD IMG XR PROCEDURES Final Result * XR chest 1 view (10/03/2023 10:05 AM EDT) Anatomical Region Laterality Modality Chest Radiographic Renetta ging [facility] IMG XR PROCEDURES Final Result documented in this encounter Visit Diagnoses Not on filedocumented in this encounter Care Teams Principal Statistical Programmer Relationship Specialty Start Date End Date Jericho Centeno MD [address] [place] [phone] PCP - General Family Medicine 08/25/23 documented as of this encounter
--- OUTSIDE RECORDS SUMMARY | 2024-09-30 07:01 | XMS_ITS | Encounter Summary ---
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 Name Role Phone Jericho Centeno MD Primary Care Provider [phone] Encounter Details Date Type Department Care Team (Late st Contact Info) Description 03/23/2024 Clinisync Result Encounter [facility] External Department Unsolicited Provider, Generic External Data Social History Tobacco Use Types Packs/Day Years [...] Office Visit [facility] [address] [facility] [address] [place] [address] Ashley Traore MD [address] [facility] [address] [place] [address] documented as of this encounter Procedures Procedure Name Priority Date/Time Associated Diagnosis Comments CA ECHO DOPPLER COMPLETE 03/23/2024 10:39 AM EST documented in this encounter Results * CA ECHO DOPPLER COMPLETE (03/23/2024 10:39 AM EST) Anatomical Region Laterality Modality Other 03/23/2024 10:3 9 AM EST Narrative 03/23/2024 10:40 AM EST The [address] [address] Cardiology Report Signed Patient: ROGER SUAREZ MR#: [id number] : 1950 Acct:[id number] Age/Sex: 73 / M ADM Date: 03/23/24 Loc: CARD Attending Dr: BENJA MCGHEE Ordering Physician: BENJA MCGHEE Date of Service: 03/23/24 Procedure(s): CA echo doppler complete Accession Number(s): [id number] cc: BENJA MCGHEE; Jericho Centeno M.D. Patient Name: ROGER SUAREZ MR#: [id number] : 1950 Exam Date: 03/23/2024 Ordering Doctor: DR BENJA MCGHEE M.D. ECHOCARDIOGRAM REPORT PROCEDURE: CA ECHO DOPPLER COMPLETE INDICATIONS: Primary pulmonary HTN, Chronic systolic CHF COMPARISON: None. DESCRIPTION: COMPLETE ECHOCARDIOGRAM Real-time transthoracic echocardiography with 2D, M-mode, spectral and color flow Doppler performed. QUALITY: Technical quality was good. LEFT VENTRICLE: Normal chamber size. Mild concentric left ventricular hypertrophy. Global left ventricular systolic function is normal. LV EF: Visual estimation of left ventricular ejection fraction is 65-70%. DIASTOLIC: Grade 2 diastolic dysfunction. ATRIAL SEPTUM: LEFT ATRIUM: Severe dilatation. RIGHT ATRIUM: Moderate dilatation. RIGHT VENTRICLE: Mild chamber dilatation. Normal right ventricular systolic function. TRICUSPID VALVE: Normal mobility and thickness. No stenosis with mild regurgitation. Mild pulmonary hypertension. RVSP 38 mmHg MITRAL VALVE: Normal mobility and thickness. No evidence of mitral valve stenosis. There is no mitral annular calcification. Mild to moderate mitral regurgitation. AORTIC VALVE: Normal trileaflet appearance. No visible sclerosis. Normal leaflet mobility. No evidence of aortic valve stenosis. Mild aortic regurgitation. AORTIC ROOT: Normal diameter and appearance. PULMONIC VALVE: Normal thickness and mobility. No stenosis. No regurgitation. PERICARDIUM: Small pericardial effusion. No evidence of tamponade physiology. IVC: Collapses with inspirations. Normal size. PLEURA: CONCLUSION: 1. Mild concentric left ventricular hypertrophy with normal systolic function. LVEF is estimated at 65 to 70%. 2. Mildly dilated right ventricle with normal systolic function. 3. Moderate to severe biatrial dilatation. 4. Mild to moderate mitral regurgitation. 5. Mild aortic regurgitation. 6. Mild tricuspid regurgitation. 7. Mildly elevated right-sided pressures. 8. Small pericardial effusion. Adult Echocardiography Procedure Report Left Ventricle LVEDD (3.7 - 5.6 cm): 5.01 cm LVESD (2.2 - 4.0 cm): 3.32 cm LVIVS thickness (0.6 - 1.2 cm): 1.24 cm LVPW thickness (0.5 - 1.0 cm): 1.21 cm e': 0.09 m/s E - e': 8.30 LVOT Max Gradient: 4.99 mm[Hg] LVOT Area (cm2): 1.12 m/s Peak Velocity (LVOT): 1.12 m/s Mean Velocity (LVOT): 0.63 m/s LVOT Diameter 2.06 cm Left Ventricular Ejection Fraction: 65-70 % Left Atrium LA Volume Index (2D A2C): 57.14 ml/m2 Left Atrium Systolic Dimension: 4.63 cm Mitral Valve MV E to A Ratio: 1.50, 1.29 Mitral Valve A-Wave Peak Velocity: 0.56 m/s Mitral Valve E-Wave Peak Velocity: 0.78 m/s Right Ventricle RV Internal Diastolic Dimension: 3.22 cm Aorta AO Root Diam: 3.56 cm Ascending Ao Diam: 3.16 cm Aortic Valve AoV Area (Peak Ronnie): 2.79 cm2, 2.79 cm2 AoV Area (VTI): 2.50 cm2, 2.50 cm2 Deceleration [place]: 0.67 m/s2 Pressure Half-Time: 1.17 s Peak Velocity(Antegrade Flow): 1.34 m/s Peak Gradient(Antegrade Flow): 7.17 mm[Hg] Mean Velocity(Antegrade Flow): 0.86 m/s Mean Gradient(Antegrade Flow): 3.46 mm[Hg] Velocity Time Integral: 35.07 cm Tricuspid Valve Peak Velocity (Regurgitant Flow): 2.49 m/s, 2.68 m/s, 2.95 m/s, 2.84 m/s Pulmonic Valve Mean Gradient: 3.65 mm[Hg] Mean Velocity: 0.91 m/s Peak Velocity: 1.19 m/s, 1.07 m/s Peak Gradient: 5.69 mm[Hg], 4.60 mm[Hg] Right Atrium Right Atrium Systolic Pressure: 51.03 ml, 51.03 ml Dictated by: Benja Mcghee M.D. on 03/23/2024 at 10:35 Approved by: Benja Mcghee M.D. on 03/23/2024 at 10:39 Dictated By: BENJA MCGHEE Signed By: 03/23/24 1040 DD/ 1039 TD/TT: Senior Account Director: Procedure Note Radiology, Radiologist, MD - 03/23/2024 [place] [address] Cardiology Report Signed Patient: ROGER SUAREZ EMR#: [id number] : 1950cct:[id number] Age/Sex: 73 / MADM Date: 03/23/24 Loc: CARD Attending Dr: BENJA MCGHEE Ordering Physician: BENJA MCGHEE Date of Service: 03/23/24 Procedure(s): CA echo doppler complete Accession Number(s): [id number] cc: BENJA MCGHEE; Jericho Centeno M.D. Patient Name: ROGER SUAREZ MR#: [id number] : 1950 Exam Date: 03/23/2024 Ordering Doctor: DR BENJA MCGHEE M.D. ECHOCARDIOGRAM REPORT PROCEDURE: CA ECHO DOPPLER COMPLETE INDICATIONS: Primary pulmonary HTN, Chronic systolic CHF COMPARISON: None. DESCRIPTION: COMPLETE ECHOCARDIOGRAM Real-time transthoracic echocardiography with 2D, M-mode, spectral and color flow Dopplerperformed. QUALITY: Technical quality was good. LEFT VENTRICLE: Normal chamber size. Mild concentric left ventricular hypertrophy. Global left ventricular systolic function is normal. LV EF: Visual estimation of left ventricular ejection fraction is65-70%. DIASTOLIC: Grade 2 diastolic dysfunction. ATRIAL SEPTUM: LEFT ATRIUM: Severe dilatation. RIGHT ATRIUM: Moderate dilatation. RIGHT VENTRICLE: Mild chamber dilatation. Normal right ventricular systolic function. TRICUSPID VALVE: Normal mobility and thickness. No stenosis with mild regurgitation. Mild pulmonary hypertension. RVSP 38 mmHg MITRAL VALVE: Normal mobility and thickness. No evidence of mitralvalve stenosis. There is no mitral annular calcification. Mild to moderatemitral regurgitation. AORTIC VALVE: Normal trileaflet appearance. No visible sclerosis.Normal leaflet mobility. No evidence of aortic valve stenosis. Mild aortic regurgitation. AORTIC ROOT: Normal diameter and appearance. PULMONIC VALVE: Normal thickness and mobility. No stenosis. Noregurgitation. PERICARDIUM: Small pericardial effusion. No evidence of tamponade physiology. IVC: Collapses with inspirations. Normal size. PLEURA: CONCLUSION: 1. Mild concentric left ventricular hypertrophy with normal systolicfunction. LVEF is estimated at 65 to 70%. 2. Mildly dilated right ventricle with normal systolic function. 3. Moderate to severe biatrial dilatation. 4. Mild to moderate mitral regurgitation. 5. Mild aortic regurgitation. 6. Mild tricuspid regurgitation. 7. Mildly elevated right-sided pressures. 8. Small pericardial effusion. Adult Echocardiography Procedure Report Left Ventricle LVEDD (3.7 - 5.6 cm): 5.01 cm LVESD (2.2 - 4.0 cm): 3.32 cm LVIVS thickness (0.6 - 1.2 cm): 1.24 cm LVPW thickness (0.5 - 1.0 cm): 1.21 cm e': 0.09 m/s E - e': 8.30 LVOT Max Gradient: 4.99 mm[Hg] LVOT Area (cm2): 1.12 m/s Peak Velocity (LVOT): 1.12 m/s Mean Velocity (LVOT): 0.63 m/s LVOT Diameter 2.06 cm Left Ventricular Ejection Fraction: 65-70 % Left Atrium LA Volume Index (2D A2C): 57.14 ml/m2 Left Atrium Systolic Dimension: 4.63 cm Mitral Valve MV E to A Ratio: 1.50, 1.29 Mitral Valve A-Wave Peak Velocity: 0.56 m/s Mitral Valve E-Wave Peak Velocity: 0.78 m/s Right Ventricle RV Internal Diastolic Dimension: 3.22 cm Aorta AO Root Diam: 3.56 cm Ascending Ao Diam: 3.16 cm Aortic Valve AoV Area (Peak Ronnie): 2.79 cm2, 2.79 cm2 AoV Area (VTI): 2.50 cm2, 2.50 cm2 Deceleration [place]: 0.67 m/s2 Pressure Half-Time: 1.17 s Peak Velocity(Antegrade Flow): 1.34 m/s Peak Gradient(Antegrade Flow): 7.17 mm[Hg] Mean Velocity(Antegrade Flow): 0.86 m/s Mean Gradient(Antegrade Flow): 3.46 mm[Hg] Velocity Time Integral: 35.07 cm Tricuspid Valve Peak Velocity (Regurgitant Flow): 2.49 m/s, 2.68 m/s, 2.95 m/s, 2.84m/s Pulmonic Valve Mean Gradient: 3.65 mm[Hg] Mean Velocity: 0.91 m/s Peak Velocity: 1.19 m/s, 1.07 m/s Peak Gradient: 5.69 mm[Hg], 4.60 mm[Hg] Right Atrium Right Atrium Systolic Pressure: 51.03 ml, 51.03 ml Dictated by: Benja Mcghee M.D. on 03/23/2024 at 10:35 Approved by: Benja Mcghee M.D. on 03/23/2024 at 10:39 Dictated By: BENJA MCGHEE Signed By:03/23/24 1040 DD/ 1039 TD/TT: Senior Account Director: us Generic External Data Provider [facility] Final Result documented in this encounter Visit Diagnoses Not on filedocumented in this encounter Care Teams Screen Printing Equipment Setter Relationship Specialty Start Date End Date Jericho Centeno MD [address] [place] [address] PCP - General Family Medicine 08/25/23 documented as of this encounter
--- OUTSIDE RECORDS SUMMARY | 2024-09-30 07:04 | XMS_ITS | CCD ---
Author Organization [facility] Care Team Providers Care Tongue Stitcher Name Role Phone Tj Wells Unavailable MD Jericho Mccarthy Primary Care Provider [phone] MD Tj Wells Attending Provider [phone] Tj Wells Attending Unavailabl e NadJericho lofton Primary Care Unavailable Tj Wells Admitting Unavailabl e Maira, Tj Sullivan Admitting Unavailabl e Tj Wells Attending Unavailabl e Jericho Mccarthy Primary Care Unavailable MISC, DR ALVAREZ Attending Unavailable MISC, DR ALVAREZ Admitting Unavailable MISC, DR ALVAREZ Consulting Unavailable NADERER, DR JERICHO Floyd Primary Care Unavailable ELY SHOSHONE, DR MERRITT Consulting Unavailable ELY SHOSHONE, DR MERRITT Attending Unavailable ELY SHOSHONE, DR MERRITT Admitting Unavailable NADERER, DR FERGUSON A Primary Care Unavailable MISC, DR ALVAREZ Attending Unavailable MISC, DR ALVAREZ Admitting Unavailable NADERER, DR FERGUSON A Primary Care Unavailable MISC, DR ALVAREZ Consulting Unavailable ELY SHOSHONE, DR MERRITT Consulting Unavailable ELY SHOSHONE, DR MERRITT Attending Unavailable NADERER, DR FERGUSON A Primary Care Unavailable ELY SHOSHONE, DR MERRITT Admitting Unavailable MISC, DR ALVAREZ [...] Unavailable Jericho Mccarthy MD Primary Care Provider [phone] AZEB LEE Attending Unavailable URVASHI, SANTANA Attending Unavailable URVASHI, SANTANA Attending Unavailable Allergies Allergy Classification Reported Allergen(s) Allergy Type Date of Onset Reaction(s) Facility (11 sources) Non-steroidal anti-inflammator y agent Drug Intolerance 2 [facility] Healthcare (1 source) NSAIDs; Translations: [NSAIDS (NON-STEROIDAL ANTI-INFLAMMATOR Y DRUG)] Propensity to adverse reactions to drug (disorder) 2 [facility] Repository Medications Current Medications Medication Drug Class(es) [...] hyperglycemia, with long-term current use of insulin ([facility]) INJECT 20 UNITS SUBCUTANEOUSLY (UNDER [...] bedtime. Active take 2 tablets by mo [facility] every twelve hours Mycophenolate Sodium 180 MG [...] 2 MCG IVP MWF DURING DIALYSIS PER [facility] (08/26/18) 5 ml sodium ferric gluconate complex 12.5 mg/ml injection (2 sources) Start: 07-08-2017 End: 03-05-2022 Sodium Ferric Gluconat-Sucrose (Ferrlecit) 62.5 mg/5 mL Solution Discontinued 125 MG IV Q14D July 08, 2017 1:00am March 05, 2022 7:07am RECEIVES FERRLECIT 125MG IVP EVERY OTHER FRIDAY (DOSE DUE 08/26/18 PER [facility]) Problems Active Problems Problem Classification [...] Coronary atherosclerosis; 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] Onset: 2 [...] 2 Episodic Other aftercare (1 source) 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; Translations: [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] Onset: 2 Episodic Other [...] Interpretation Reference Range Facility Follow-Upon 06-18-2024 Follow-Up [id number] Roger Kerr 1950 M Date Provider Department [...] at Mother Father Sister Brother Level of Service:79171 [place] OFFICE/OUTPATIENT ESTABLISHED MOD MDM 30 MIN (GC) Reason for Visit and Comments: Kidney Follow-up [[id number]] - NO CONCERNS Normal [facility] Office Visiton 06-09-2024 Follow-up visit [id number] Roger Kerr 1950 M Date Provider Department Center 06/09/2024 [id number] LEE [facility] Family History Problem Relation Age of Onset Diabetes Mother Hypertension Mother Coronary artery disease Mother Other Mother Cystic kidney disease Mother Hypertension Father Skin cancer Father Cystic kidney disease Father Cystic kidney disease Sister Heart disease Brother ALS Brother Cystic kidney disease Brother Family Status - Relation Status Age at Mother Father Sister Brother Level of Service:36854 [place] OFFICE/OUTPATIENT ESTABLISHED LOW MDM 20 MIN Normal [facility] ALL CBC WITH AUTO DIFFon BASOPHILS ABSOLUTE [...] Healthcare IMMATURE GRANULOCYTES ABS AUTO 0.05 High [facility] Healthcare Immature granulocytes/100 WBC (Bld) 1.5 % High 0.0 - 0.5 % [facility]ation and review of laboratory [...] (Bld) 55 % 43.0 - 75.0 % [facility] Platelet mean volume (Bld) [Entitic vol] 9.5 fL 9.5 - 13.5 fL [facility] EO # 0.2 [facility] PLT 252 [facility] RBC 3.8 Low [facility] WBC 3.4 Low [facility] ALL CBC WITH AUTO DIFFon BASOPHILS ABSOLUTE AUTO 0.1 [facility] Basophils/100 WBC (Bld) 0.7 % 0.2 - 2.0 % [facility] Eosinophils/100 WBC (Bld) 3.6 % 0.9 - 7.0 % [facility] Erythrocyte distribution width (RBC) [Ratio] 14 % 11.0 - 15.0 % [facility] Hematocrit (Bld) [Volume fraction] 36 % Low 42.0 - 54.0 % [facility] Hemoglobin (Bld) [Mass/Vol] 11.7 g/dL Low 14.0 - 18.0 g/dL [facility] IMMATURE GRANULOCYTES ABS AUTO 0.04 High [facility] Immature granulocytes/100 WBC (Bld) 0.6 % High 0.0 - 0.5 % [facility] Interpretation and review of laboratory results Abnormal [facility] LYMPHOCYTES ABSOLUTE AUTO 0.9 Low [facility] Lymphocytes/100 WBC (Bld) 13.9 % Low 20.5 - 60.0 % [facility] MCH (RBC) [Entitic mass] 29.3 pg 25.9 - 34.0 pg [facility] MCHC (RBC) [Mass/Vol] 32.5 g/dL 29.9 - 35.2 g/dL [facility] MCV (RBC) [Entitic vol] 90.2 fL 80.0 - 94.0 fL [facility] MONOCYTES ABSOLUTE AUTO 0.6 [facility] Monocytes/100 WBC (Bld) 8.2 % 1.7 - 12.0 % [facility] NEUTROPHILS ABSOLUTE AUTO 4.9 [facility] Neutrophils/100 WBC (Bld) 73 % 43.0 - 75.0 % [facility] Platelet mean volume (Bld) [Entitic vol] 8.9 fL Low 9.5 - 13.5 fL [facility] EO # 0.2 [facility] PLT 301 [facility] RBC 3.99 Low [facility] WBC 6.7 [facility] 36on 04-01-2024 36 Regarding echo resul t from 03/23/2024: MD Lurdes Stallings MA His echo overall was okay. He just needs a regular follow-up. Spoke with patient and scheduled him a follow up with Jennifer Egan CNP on 05/13/2024. Normal [facility] ALL CBC WITH AUTO DIFFon BASOPHILS ABSOLUTE AUTO 0 [facility] Basophils/100 WBC (Bld) 0.5 % 0.2 - 2.0 % [facility] Eosinophils/100 WBC (Bld) 2.7 % 0.9 - 7.0 % [facility] Erythrocyte distribution width (RBC) [Ratio] 13.7 % 11.0 - 15.0 % [facility] Hematocrit (Bld) [Volume fraction] 36.6 % Low 42.0 - 54.0 % [facility] Hemoglobin (Bld) [Mass/Vol] 12.1 g/dL Low 14.0 - 18.0 g/dL [facility] IMMATURE GRANULOCYTES ABS AUTO 0.03 [facility] Immature granulocytes/100 WBC (Bld) 0.5 % 0.0 - 0.5 % [facility] Interpretation and review of laboratory results Abnormal [facility] LYMPHOCYTES ABSOLUTE AUTO 0.9 Low [facility] Lymphocytes/100 WBC (Bld) 13.3 % Low 20.5 - 60.0 % [facility] MCH (RBC) [Entitic mass] 29.3 pg 25.9 - 34.0 pg [facility] MCHC (RBC) [Mass/Vol] 33.1 g/dL 29.9 - 35.2 g/dL [facility] MCV (RBC) [Entitic vol] 88.6 fL 80.0 - 94.0 fL [facility] MONOCYTES ABSOLUTE AUTO 0.5 [facility] Monocytes/100 WBC (Bld) 7.7 % 1.7 - 12.0 % [facility] NEUTROPHILS ABSOLUTE AUTO 5 [facility] Neutrophils/100 WBC (Bld) 75.3 % High 43.0 - 75.0 % [facility] Platelet mean volume (Bld) [Entitic vol] 9.1 fL Low 9.5 - 13.5 fL [facility] EO # 0.2 [facility] TB PLT 262 [facility] RBC 4.13 Low [facility] TB WBC 6.6 [facility] Healthcare Documentationon 03-11-2024 Documentation [id number] Roger Kerr 1950 M Date Provider Department [...] at Mother Father Sister Brother [facility] 29on 02-11-2024 29 Addended by: SANTANA LANDIN on: 07/11/2024 11:41 PM Modules accepted: Level of Service Normal [facility] Follow-Upon 02-11-2024 Follow-Up [id number] Roger Kerr 1950 M Date Provider Department Center 02/11/2024 [id number] LANDIN TXP None Family History Problem Relation Age of Onset Diabetes Mother Hypertension Mother Coronary artery disease Mother Other Mother Cystic kidney disease Mother Hypertension Father Skin cancer Father Cystic kidney disease Father Cystic kidney disease Sister Heart disease Brother ALS Brother Cystic kidney disease Brother Family Status - Relation Status Age at Mother Father Sister Brother Level of Service:64149 [place] OFFICE/OUTPATIENT ESTABLISHED MOD MDM 30 MIN Reason for Visit and Comments: Kidney Follow-up [[id number]] - Pt has no concerns at this time. Normal [facility] ALL CBC WITH AUTO DIFFon BASOPHILS ABSOLUTE AUTO 0.0 [facility] Basophils/100 WBC (Bld) 0.6 % 0.2 - 2.0 % [facility] Eosinophils/100 WBC (Bld) 3.1 % 0.9 - 7.0 % [facility] Erythrocyte distribution width (RBC) [Ratio] 13.6 % 11.0 - 15.0 % [facility] Hematocrit (Bld) [Volume fraction] 36.0 % Low 42.0 - 54.0 % [facility] Hemoglobin (Bld) [Mass/Vol] 12.3 g/dL Low 14.0 - 18.0 g/dL [facility] IMMATURE GRANULOCYTES ABS AUTO 0.01 [facility] Immature granulocytes/100 WBC (Bld) 0.1 % 0.0 - 0.5 % [facility] Interpretation and review of laboratory results Abnormal [facility] LYMPHOCYTES ABSOLUTE AUTO 0.8 Low [facility] Lymphocytes/100 WBC (Bld) 11.8 % Low 20.5 - 60.0 % [facility] MCH (RBC) [Entitic mass] 29.9 pg 25.9 - 34.0 pg [facility] MCHC (RBC) [Mass/Vol] 34.2 g/dL 29.9 - 35.2 g/dL [facility] MCV (RBC) [Entitic vol] 87.4 fL 80.0 - 94.0 fL [facility] MONOCYTES ABSOLUTE AUTO 0.5 [facility] Monocytes/100 WBC (Bld) 7.7 % 1.7 - 12.0 % [facility] NEUTROPHILS ABSOLUTE AUTO 5.4 [facility] Neutrophils/100 WBC (Bld) 76.7 % High 43.0 - 75.0 % [facility] Platelet mean volume (Bld) [Entitic vol] 9.4 fL Low 9.5 - 13.5 fL [facility] TB EO # 0.2 [facility] TBH PLT 233 [facility] TB RBC 4.12 Low [facility] TB WBC 7.1 [facility] Orders Onlyon 01-16-2024 Orders Only [id number] Roger Kerr 1950 M Date Provider Department Center 01/16/2024 [id number] MARQUES None Family History Problem Relation Age of Onset Diabetes Mother Hypertension Mother Coronary artery disease Mother Other Mother Cystic kidney disease Mother Hypertension Father Skin cancer Father Cystic kidney disease Father Cystic kidney disease Sister Heart disease Brother ALS Brother Cystic kidney disease Brother Family Status - Relation Status Age at Mother Father Sister Brother Normal [facility] ALL CBC WITH AUTO DIFFon BASOPHILS ABSOLUTE AUTO 0.0 [facility] Basophils/100 WBC (Bld) 0.5 % 0.2 - 2.0 % [facility] Eosinophils/100 WBC (Bld) 6.0 % 0.9 - 7.0 % [facility] Erythrocyte distribution width (RBC) [Ratio] 13.9 % 11.0 - 15.0 % [facility] Hematocrit (Bld) [Volume fraction] 35.3 % Low 42.0 - 54.0 % [facility] Hemoglobin (Bld) [Mass/Vol] 11.7 g/dL Low 14.0 - 18.0 g/dL [facility] IMMATURE GRANULOCYTES ABS AUTO 0.03 [facility] Immature granulocytes/100 WBC (Bld) 0.5 % 0.0 - 0.5 % [facility] Interpretation and review of laboratory results Abnormal [facility] LYMPHOCYTES ABSOLUTE AUTO 0.9 Low [facility] Lymphocytes/100 WBC (Bld) 13.1 % Low 20.5 - 60.0 % [facility] MCH (RBC) [Entitic mass] 29.8 pg 25.9 - 34.0 pg [facility] MCHC (RBC) [Mass/Vol] 33.1 g/dL 29.9 - 35.2 g/dL [facility] MCV (RBC) [Entitic vol] 90.1 fL 80.0 - 94.0 fL [facility] MONOCYTES ABSOLUTE AUTO 0.5 [facility] Monocytes/100 WBC (Bld) 7.6 % 1.7 - 12.0 % [facility] NEUTROPHILS ABSOLUTE AUTO 4.7 [facility] Neutrophils/100 WBC (Bld) 72.3 % 43.0 - 75.0 % [facility] Platelet mean volume (Bld) [Entitic vol] 9.3 fL Low 9.5 - 13.5 fL [facility] EO # 0.4 [facility] PLT 253 [facility] TB RBC 3.92 Low [facility] WBC 6.5 [facility] Follow-Upon 10-31-2023 Follow-Up [id number] Roger Kerr 1950 M Date Provider Department Center 10/31/2023 [id number] LANDIN None Family History Problem Relation Age of Onset Diabetes Mother Hypertension Mother Coronary artery disease Mother Other Mother Cystic kidney disease Mother Hypertension Father Skin cancer Father Cystic kidney disease Father Cystic kidney disease Sister Heart disease Brother ALS Brother Cystic kidney disease Brother Family Status - Relation Status Age at Mother Father Sister Brother Level of Service:97998 [place] OFFICE/OUTPATIENT ESTABLISHED MOD MDM 30 MIN Reason for Visit and Comments: Kidney Follow-up [[id number]] - Pt has no concerns at this time. [facility] FK506 (TACROLIMUS) WHOLE BLO ODon 10-06-2022 Tacrolimus (FK506), Blood 3.8 ng/mL Normal 2.0-20.0 [facility] Comment on above: Result Comment: Trou gh (immediately following transplant) 15.0 . Trough (steady state, 2 weeks or more after transplant): 3.0 - 8.0 . Performed by LC-MS/MS technology. Performed By: #### U CLINT, CMP, LIPID, DBIL, PHOS, MG #### [facility] [address] [place] [address] Dr. Brea Causey BILIRUBIN CONJUGATED (DIRECT )on 10-03-2022 BILI, CONJUGATED 0.1 mg/dL Normal 0.0-0.[address] [facility] Comment on above: Performed By: #### C BC #### [facility] [address] [place] [address] Dr. Brea Causey CBC AUTO DIFFon 10-03-2022 BASO # 0.0 103/ul Normal 0.0-0.1 [facility] Comment on above: Performed By: #### U CLINT, CMP, LIPID, DBIL, PHOS, MG #### [facility] [address] [place] [address] Dr. Brea Causey Basophils/100 WBC (Bld) 0.5 % Normal 0.2-2.0 [facility] Comment on above: Performed By: #### U CLINT, CMP, LIPID, DBIL, PHOS, MG #### [facility] [address] [place] [address] Dr. Brea Causey EO # 0.1 103/ul Normal 0.0-0.7 [facility] Comment on above: Performed By: #### U CLINT, CMP, LIPID, DBIL, PHOS, MG #### [facility] [address] [place] [address] Dr. Brea Causey Eosinophils/100 WBC (Bld) 2.3 % Normal 0.9-7.0 [facility] Comment on above: Performed By: #### U CLINT, CMP, LIPID, DBIL, PHOS, MG #### [facility] [address] [address] [address] Brea Causey Erythrocyte distribution width (RBC) [Ratio] 13.2 % Normal 11.0-15.0 [facility] Comment on above: Performed By: #### U CLINT, CMP, LIPID, DBIL, PHOS, MG #### [facility] [address] [place] [address] Dr. Brea Causey Hematocrit (Bld) [Volume fraction] 35.0 % Critically low 42.0-54.0 [facility] Comment on above: Performed By: #### U CLINT, CMP, LIPID, DBIL, PHOS, MG #### [facility] [address] [place] [address] Dr. Brea Causey Hemoglobin (Bld) [Mass/Vol] 11.7 g/dL Critically low 14.0-18.0 [facility] Comment on above: Performed By: #### U CLINT, CMP, LIPID, DBIL, PHOS, MG #### [facility] [address] [place] [address] Dr. Brea Causey IG # 0.06 10e3/ul Critically high 0.00-0.03 [facility] Comment on above: Performed By: #### U CLINT, CMP, LIPID, DBIL, PHOS, MG #### [facility] [address] [place] [address] Dr. Brea Causey IG % 1.1 % Critically high 0.0-0.5 [facility] Comment on above: Performed By: #### U CLINT, CMP, LIPID, DBIL, PHOS, MG #### [facility] [address] [place] [address] Dr. Brea Causey LYMPH # 0.8 103/ul Critically low 1.2-3.8 [facility] Comment on above: Performed By: #### U CLINT, CMP, LIPID, DBIL, PHOS, MG #### [facility] [address] [place] [address] Dr. Brea Causey Lymphocytes/100 WBC (Bld) 14.9 % Critically low 20.5-60.0 [facility] Comment on above: Performed By: #### U CLINT, CMP, LIPID, DBIL, PHOS, MG #### [facility] [address] [place] [address] Dr. Brea Causey MANUAL DIFF REQ NO Normal [facility] Comment on above: Performed By: #### U CLINT, CMP, LIPID, DBIL, PHOS, MG #### [facility] [address] [place] [address] Dr. Brea Causey MCH (RBC) [Entitic mass] 28.8 pg Normal 25.9-34.0 [facility] Comment on above: Performed By: #### U CLINT, CMP, LIPID, DBIL, PHOS, MG #### [facility] [address] [place] [address] Dr. Brea Causey MCHC (RBC) [Mass/Vol] 33.4 g/dL Normal 29.9-35.2 [facility] Comment on above: Performed By: #### U CLINT, CMP, LIPID, DBIL, PHOS, MG #### [facility] [address] [place] [address] Dr. Brea Causey MCV (RBC) [Entitic vol] 86.2 fL Normal 80.0-94.0 [facility] Comment on above: Performed By: #### U CLINT, CMP, LIPID, DBIL, PHOS, MG #### [facility] [address] [place] [address] Dr. Brea Causey MONO # 0.5 103/ul Normal 0.3-0.8 [facility] Comment on above: Performed By: #### U CLINT, CMP, LIPID, DBIL, PHOS, MG #### [facility] [address] [place] [address] Dr. Brea Causey Monocytes/100 WBC (Bld) 9.1 % Normal 1.7-12.0 [facility] Comment on above: Performed By: #### U CLINT, CMP, LIPID, DBIL, PHOS, MG #### [facility] [address] [place] [address] Dr. Brea Causey NEUT # 4.1 103/ul Normal 1.4-6.5 [facility] Comment on above: Performed By: #### U CLINT, CMP, LIPID, DBIL, PHOS, MG #### [facility] [address] [address] [address] Brea Causey Neutrophils/100 WBC (Bld) 72.1 % Normal 43.0-75.0 [facility] Comment on above: Performed By: #### U CLINT, CMP, LIPID, DBIL, PHOS, MG #### [facility] [address] [address] [address] Brea Causey Platelet mean volume (Bld) [Entitic vol] 9.0 fL Critically low 9.5-13.5 [facility] Comment on above: Performed By: #### U CLINT, CMP, LIPID, DBIL, PHOS, MG #### [facility] [address] [address] [address] Brea Causey PLT 211 103/ul Normal 150-450 [facility] Comment on above: Performed By: #### U CLINT, CMP, LIPID, DBIL, PHOS, MG #### [facility] [address] [address] [address] Brea Causey RBC 4.06 106/ul Critically low 4.70-6.10 [facility] Comment on above: Performed By: #### U CLINT, CMP, LIPID, DBIL, PHOS, MG #### [facility] [address] [address] [address] Brea Causey WBC 5.6 103/ul Normal 4.0-11.0 [facility] Comment on above: Performed By: #### U CLINT, CMP, LIPID, DBIL, PHOS, MG #### [facility] [address] [place] [address] Dr. Brea Causey LIPID PROFILEon 10-03-2022 CHOL-HDL RATIO NORM SEE BELOW Normal [facility] Comment on above: Result Comment: 3.3 - 4.4 LOW RISK 4.4 - 7.1 AVERAGE RISK 7.1 - 11.0 MODERATE RISK >11.0 HIGH RISK Performed By: #### C BC #### [facility] [address] [place] [address] Dr. Brea Causey Cholesterol [Mass/Vol] 93 mg/dL Normal <=200 Th [facility] Comment on above: Performed By: #### C BC #### [facility] [address] [address] [address] Brea Causey Cholesterol in HDL [Mass/Vol] 43 mg/dL Normal 40-60 [facility] Comment on above: Performed By: #### C BC #### [facility] [address] [address] [address] Brea Causey Cholesterol in LDL [Mass/Vol] 37.6 mg/dL Normal [facility] Comment on above: Performed By: #### C BC #### [facility] [address] [address] [address] Brea Causey Cholesterol.total/Chol esterol in HDL [Mass ratio] 2.2 {ratio} Normal [facility] Comment on above: Performed By: #### C BC #### [facility] [address] [address] [address] Brea Causey HDL NORMAL > or = 60 mg/dl - LO W CARDIOVASCULAR RISK <40 mg/dl - HIGH CARDIOVASCULAR RISK Normal [facility] Comment on above: Performed By: #### C BC #### [facility] [address] [address] [address] Brea Causey LDL CALC NORMAL SEE BELOW Normal [facility] Comment on above: Result Comment: <100 mg/dl OPTIMAL 100 - 129 mg/dl NEAR OR ABOVE OPTIMAL 130 - 159 mg/dl BORDERLINE HIGH 160 - 189 mg/dl HIGH >190 mg/dl VERY HIGH Performed By: #### C BC #### [facility] [address] [address] [address] Brea Causey Triglyceride [Mass/Vol] 62 mg/dL Normal <=150 [facility] Comment on above: Performed By: #### C BC #### [facility] [address] [address] [address] Brea Causey VLDL CALC 12.4 mg/dL Normal [facility] Comment on above: Performed By: #### C BC #### [facility] [address] [address] [address] Brea Causey MAGNESIUMon 10-03-2022 Magnesium [Mass/Vol] 1.5 mg/dL Critically low 1.8-2.4 [facility] Comment on above: Performed By: #### C BC #### [facility] [address] [place] [address] Dr. Brea Causey PHOSPHORUSon 10-03-2022 Phosphate [Mass/Vol] 4.4 mg/dL Normal 2.6-4.7 [facility] Comment on above: Performed By: #### C BC #### [facility] [address] [place] [address] Dr. Brea Causey PROF 14(COMP METB)on 023 Albumin [Mass/Vol] 3.8 g/dL Normal 3.4-5.0 [facility] Comment on above: Performed By: #### C BC #### [facility] [address] [place] [address] Dr. Brea Causey Albumin/Globulin [Mass ratio] 1.1 {ratio} Normal [facility] Comment on above: Performed By: #### C BC #### [facility] [address] [place] [address] Dr. Brea Causey ALP [Catalytic activity/Vol] 190 U/L Critically high 46-116 [facility] Comment on above: Performed By: #### C BC #### [facility] [address] [place] [address] Dr. Brea Causey ALT [Catalytic activity/Vol] 26 U/L Normal 16-63 [facility] Comment on above: Performed By: #### C BC #### [facility] [address] [place] [address] Dr. Brea Causey Anion gap [Moles/Vol] 15.3 mmol/L Normal [facility] Comment on above: Performed By: #### C BC #### [facility] [address] [place] [address] Dr. Brea Causey AST [Catalytic activity/Vol] 23 U/L Normal 15-37 [facility] Comment on above: Performed By: #### C BC #### [facility] [address] [address] [address] Brea Causey Bilirubin [Mass/Vol] 0.4 mg/dL Normal 0.2-1.0 [facility] Comment on above: Performed By: #### C BC #### [facility] [address] [address] [address] Brea Causey Calcium [Mass/Vol] 7.8 mg/dL Critically low 8.5-10.1 Th [facility] Comment on above: Performed By: #### C BC #### [facility] [address] [address] [address] Brea Causey Chloride [Moles/Vol] 97 mmol/L Critically low 98-107 [facility] Comment on above: Performed By: #### C BC #### [facility] [address] [place] [address] Dr. Brea Causey CO2 [Moles/Vol] 25.6 mmol/L Normal 21.0-32.[address] [facility] Comment on above: Performed By: #### C BC #### [facility] [address] [place] [address] Dr. Brea Cauesy Creatinine [Mass/Vol] 1.03 mg/dL Normal 0.70-1.30 [facility] Comment on above: Performed By: #### C BC #### [facility] [address] [place] [address] Dr. Brea Causey EGFR-AF BULGARIAN >60 Normal >=[address] [facility] Comment on above: Performed By: #### C BC #### [facility] [address] [place] [address] Dr. Brea Causey EGFR-NON AF BULGARIAN >60 Normal >=60 [facility] Comment on above: Performed By: #### C BC #### [facility] [address] [place] [address] Dr. Brea Causey Globulin (S) [Mass/Vol] 3.6 g/dL Normal [facility] Comment on above: Performed By: #### C BC #### [facility] [address] [place] [address] Dr. Brea Causey Glucose [Mass/Vol] 188 mg/dL Critically high 74-106 T [facility] Comment on above: Performed By: #### C BC #### [facility] [address] [address] [address] Brea Causey Potassium [Moles/Vol] 4.9 mmol/L Normal 3.5-5.1 [facility] Comment on above: Performed By: #### C BC #### [facility] [address] [place] [address] Dr. Brea Causey Protein [Mass/Vol] 7.4 g/dL Normal 6.4-8.2 [facility] Comment on above: Performed By: #### C BC #### [facility] [address] [place] [address] Dr. Brea Causey Sodium [Moles/Vol] 133 mmol/L Critically low 136-145 Th [facility] Comment on above: Performed By: #### C BC #### [facility] [address] [place] [address] Dr. Brea Causey Urea nitrogen [Mass/Vol] 11.0 mg/dL Normal 7.0-18.0 [facility] Comment on above: Performed By: #### C BC #### [facility] [address] [place] [address] Dr. Brea Causey Urea nitrogen/Creatinine [Mass ratio] 10.7 mg/mg Normal [facility] Comment on above: Performed By: #### C BC #### [facility] [address] [place] [address] Dr. Brea Causey URIC ACID SERUMon 10-03-2022 Urate [Mass/Vol] 5.7 mg/dL Normal 3.5-7.[address] [facility] Comment on above: Performed By: #### C BC #### [facility] [address] [place] [address] Dr. Brea Causey BK VIRUS PCR QUANTon 023 BKV DNA QUANT PCR PLASMA Negative Normal Negative [facility] Comment on above: Result Comment: No B K DNA detected. . The linear range of the assay is 22 - 100,000,000 IU/mL. Performed By: #### U CLINT, CMP, LIPID, DBIL, PHOS, MG #### [facility] [address] [id number] Brea Causey Log10 BKV DNA Plasma Normal [facility] Comment on above: Performed By: #### U CLINT, CMP, LIPID, DBIL, PHOS, MG #### [facility] [address] [address] [address] Brea Causey FK506 (TACROLIMUS) WHOLE BLO ODon 09-02-2022 Tacrolimus (FK506), Blood 3.8 ng/mL Normal 2.0-20.0 [facility] Comment on above: Result Comment: Trou gh (immediately following transplant) 15.0 . Trough (steady state, 2 weeks or more after transplant): 3.0 - 8.0 . Performed by LC-MS/MS technology. Performed By: #### U CLINT, CMP, LIPID, DBIL, PHOS, MG #### [facility] [address] [place] [address] Dr. Brea Causey TESTOSTERONE, FREE,DIRECT, T OTALon 09-01-2022 Free Testosterone(Direct) 9.7 pg/mL Normal 6.6-18.1 [facility] Comment on above: Result Comment: Perf ormed at: BN Performed By: #### U CLINT, CMP, LIPID, DBIL, PHOS, MG #### [facility] [address] [place], [place] [id number] Dr. Brea Causey Testosterone [Mass/Vol] 565 ng/dL Normal 264-916 [facility] Comment on above: Result Comment: Adul t male reference interval is based on a population of healthy nonobese males (BMI <30) between 19 and 39 years old. Steven, et.al. JCEM 2017,102;3613-1777. PMID: [id number]. Performed at: CB Performed By: #### U CLINT, CMP, LIPID, DBIL, PHOS, MG #### [facility] [address] [address] [address] Brea Causey BILIRUBIN CONJUGATED (DIRECT )on 08-30-2022 BILI, CONJUGATED 0.1 mg/dL Normal 0.0-0.[address] [facility] Comment on above: Performed By: #### U CLINT, CMP, LIPID, DBIL, PHOS, MG #### [facility] [address] [place] [address] Dr. Brea Causey CBC AUTO DIFFon 08-30-2022 BASO # 0.0 103/ul Normal 0.0-0.1 [facility] Comment on above: Performed By: #### U CLINT, CMP, LIPID, DBIL, PHOS, MG #### [facility] [address] [place] [address] Dr. Brea Causey Basophils/100 WBC (Bld) 0.7 % Normal 0.2-2.0 [facility] Comment on above: Performed By: #### U CLINT, CMP, LIPID, DBIL, PHOS, MG #### [facility] [address] [place] [address] Dr. Brea Causey EO # 0.2 103/ul Normal 0.0-0.7 [facility] Comment on above: Performed By: #### U CLINT, CMP, LIPID, DBIL, PHOS, MG #### [facility] [address] [place] [address] Dr. Brea Causey Eosinophils/100 WBC (Bld) 3.6 % Normal 0.9-7.0 [facility] Comment on above: Performed By: #### U CLINT, CMP, LIPID, DBIL, PHOS, MG #### [facility] [address] [place] [address] Dr. Brea Causey Erythrocyte distribution width (RBC) [Ratio] 13.2 % Normal 11.0-15.0 [facility] Comment on above: Performed By: #### U CLINT, CMP, LIPID, DBIL, PHOS, MG #### [facility] [address] [place] [address] Dr. Brea Causey Hematocrit (Bld) [Volume fraction] 36.0 % Critically low 42.0-54.0 [facility] Comment on above: Performed By: #### U CLINT, CMP, LIPID, DBIL, PHOS, MG #### [facility] [address] [place] [address] Dr. Brea Causey Hemoglobin (Bld) [Mass/Vol] 12.2 g/dL Critically low 14.0-18.0 [facility] Comment on above: Performed By: #### U CLINT, CMP, LIPID, DBIL, PHOS, MG #### [facility] [address] [place] [address] Dr. Brea Causey IG # 0.07 10e3/ul Critically high 0.00-0.03 [facility] Comment on above: Performed By: #### U CLINT, CMP, LIPID, DBIL, PHOS, MG #### [facility] [address] [place] [address] Dr. Brea Causey IG % 1.2 % Critically high 0.0-0.5 [facility] Comment on above: Performed By: #### U CLINT, CMP, LIPID, DBIL, PHOS, MG #### [facility] [address] [place] [address] Dr. Brea Causey LYMPH # 0.9 103/ul Critically low 1.2-3.8 [facility] Comment on above: Performed By: #### U CLINT, CMP, LIPID, DBIL, PHOS, MG #### [facility] [address] [place] [address] Dr. Brea Causey Lymphocytes/100 WBC (Bld) 15.0 % Critically low 20.5-60.0 [facility] Comment on above: Performed By: #### U CLINT, CMP, LIPID, DBIL, PHOS, MG #### [facility] [address] [place] [address] Dr. Brea Causey MANUAL DIFF REQ NO Normal [facility] Comment on above: Performed By: #### U CLINT, CMP, LIPID, DBIL, PHOS, MG #### [facility] [address] [place] [address] Dr. Brea Causey MCH (RBC) [Entitic mass] 29.4 pg Normal 25.9-34.0 [facility] Comment on above: Performed By: #### U CLINT, CMP, LIPID, DBIL, PHOS, MG #### [facility] [address] [address] [address] Brea Causey MCHC (RBC) [Mass/Vol] 33.9 g/dL Normal 29.9-35.2 [facility] Comment on above: Performed By: #### U CLINT, CMP, LIPID, DBIL, PHOS, MG #### [facility] [address] [place] [address] Dr. Brea Causey MCV (RBC) [Entitic vol] 86.7 fL Normal 80.0-94.0 [facility] Comment on above: Performed By: #### U CLINT, CMP, LIPID, DBIL, PHOS, MG #### [facility] [address] [place] [address] Dr. Brea Causey MONO # 0.5 103/ul Normal 0.3-0.8 [facility] Comment on above: Performed By: #### U CLINT, CMP, LIPID, DBIL, PHOS, MG #### [facility] [address] [place] [address] Dr. Brea Causey Monocytes/100 WBC (Bld) 9.0 % Normal 1.7-12.0 [facility] Comment on above: Performed By: #### U CLINT, CMP, LIPID, DBIL, PHOS, MG #### [facility] [address] [place] [address] Dr. Brea Causey NEUT # 4.2 103/ul Normal 1.4-6.5 [facility] Comment on above: Performed By: #### U CLINT, CMP, LIPID, DBIL, PHOS, MG #### [facility] [address] [place] [address] Dr. Brea Causey Neutrophils/100 WBC (Bld) 70.5 % Normal 43.0-75.0 [facility] Comment on above: Performed By: #### U CLINT, CMP, LIPID, DBIL, PHOS, MG #### [facility] [address] [place] [address] Dr. Brea Causey Platelet mean volume (Bld) [Entitic vol] 8.7 fL Critically low 9.5-13.5 [facility] Comment on above: Performed By: #### U CLINT, CMP, LIPID, DBIL, PHOS, MG #### [facility] [address] [address] [address] Brea Causey PLT 247 103/ul Normal 150-450 [facility] Comment on above: Performed By: #### U CLINT, CMP, LIPID, DBIL, PHOS, MG #### [facility] [address] [address] [address] Brea Causey RBC 4.15 106/ul Critically low 4.70-6.10 [facility] Comment on above: Performed By: #### U CLINT, CMP, LIPID, DBIL, PHOS, MG #### [facility] [address] [address] [address] Brea Causey WBC 5.9 103/ul Normal 4.0-11.0 [facility] Comment on above: Performed By: #### U CLINT, CMP, LIPID, DBIL, PHOS, MG #### [facility] [address] [place] [address] Dr. Brea Causey GLYCOHEMOGLOBIN A1Con 2022 ADA RECOMMENDATION SEE BELOW Normal [facility] Comment on above: Result Comment: ADA RECOMMENDED LIMIT 4.0 - 6.0 ADA THERAPEUTIC TARGET < 7.0 ACTION SUGGESTED > 7.0 Performed By: #### U CLINT, CMP, LIPID, DBIL, PHOS, MG #### [facility] [address] [address] [address] Brea Causey Glucose [Mass/Vol] 177 mg/dL Normal [facility] Comment on above: Performed By: #### U CLINT, CMP, LIPID, DBIL, PHOS, MG #### [facility] [address] [address] [address] Brea Causey HbA1c (Bld) [Mass fraction] 7.8 % Critically high 4.5-6.2 [facility] Comment on above: Performed By: #### U CLINT, CMP, LIPID, DBIL, PHOS, MG #### [facility] [address] [address] [address] Brea Causey LIPID PROFILEon 08-30-2022 CHOL-HDL RATIO NORM SEE BELOW Normal [facility] Comment on above: Result Comment: 3.3 - 4.4 LOW RISK 4.4 - 7.1 AVERAGE RISK 7.1 - 11.0 MODERATE RISK >11.0 HIGH RISK Performed By: #### U CLINT, CMP, LIPID, DBIL, PHOS, MG #### [facility] [address] [address] [address] Brea Causey Cholesterol [Mass/Vol] 96 mg/dL Normal <=200 Th [facility] Comment on above: Performed By: #### U CLINT, CMP, LIPID, DBIL, PHOS, MG #### [facility] [address] [place] [address] Dr. Brea Causey Cholesterol in HDL [Mass/Vol] 48 mg/dL Normal 40-60 [facility] Comment on above: Performed By: #### U CLINT, CMP, LIPID, DBIL, PHOS, MG #### [facility] [address] [place] [address] Dr. Brea Causey Cholesterol in LDL [Mass/Vol] 40.2 mg/dL Normal [facility] Comment on above: Performed By: #### U CLINT, CMP, LIPID, DBIL, PHOS, MG #### [facility] [address] [place] [address] Dr. Brea Causey Cholesterol.total/Chol esterol in HDL [Mass ratio] 2.0 {ratio} Normal [facility] Comment on above: Performed By: #### U CLINT, CMP, LIPID, DBIL, PHOS, MG #### [facility] [address] [place] [address] Dr. Brea Causey HDL NORMAL > or = 60 mg/dl - LO W CARDIOVASCULAR RISK <40 mg/dl - HIGH CARDIOVASCULAR RISK Normal [facility] Comment on above: Performed By: #### U CLINT, CMP, LIPID, DBIL, PHOS, MG #### [facility] [address] [place] [address] Dr. Brea Causey LDL CALC NORMAL SEE BELOW Normal [facility] Comment on above: Result Comment: <100 mg/dl OPTIMAL 100 - 129 mg/dl NEAR OR ABOVE OPTIMAL 130 - 159 mg/dl BORDERLINE HIGH 160 - 189 mg/dl HIGH >190 mg/dl VERY HIGH Performed By: #### U CLINT, CMP, LIPID, DBIL, PHOS, MG #### [facility] [address] [address] [address] Brea Causey Triglyceride [Mass/Vol] 39 mg/dL Normal <=150 [facility] Comment on above: Performed By: #### U CLINT, CMP, LIPID, DBIL, PHOS, MG #### [facility] [address] [address] [address] Brea Causey VLDL CALC 7.8 mg/dL Normal [facility] Comment on above: Performed By: #### U CLINT, CMP, LIPID, DBIL, PHOS, MG #### [facility] [address] [place] [address] Dr. Brea Causey MAGNESIUMon 08-30-2022 Magnesium [Mass/Vol] 1.5 mg/dL Critically low 1.8-2.4 [facility] Comment on above: Performed By: #### U CLINT, CMP, LIPID, DBIL, PHOS, MG #### [facility] [address] [address] [address] Brea Causey PHOSPHORUSon 08-30-2022 Phosphate [Mass/Vol] 4.0 mg/dL Normal 2.6-4.7 [facility] Comment on above: Performed By: #### U CLINT, CMP, LIPID, DBIL, PHOS, MG #### [facility] [address] [address] [address] Brea Causey PROF 14(COMP METB)on 023 Albumin [Mass/Vol] 3.8 g/dL Normal 3.4-5.0 [facility] Comment on above: Performed By: #### U CLINT, CMP, LIPID, DBIL, PHOS, MG #### [facility] [address] [address] [address] Brea Causey Albumin/Globulin [Mass ratio] 1.1 {ratio} Normal [facility] Comment on above: Performed By: #### U CLINT, CMP, LIPID, DBIL, PHOS, MG #### [facility] [address] [place] [address] Dr. Brea Causey ALP [Catalytic activity/Vol] 177 U/L Critically high 46-116 [facility] Comment on above: Performed By: #### U CLINT, CMP, LIPID, DBIL, PHOS, MG #### [facility] [address] [place] [address] Dr. Brea Causey ALT [Catalytic activity/Vol] 27 U/L Normal 16-63 [facility] Comment on above: Performed By: #### U CLINT, CMP, LIPID, DBIL, PHOS, MG #### [facility] [address] [place] [address] Dr. Brea Causey Anion gap [Moles/Vol] 12.1 mmol/L Normal [facility] Comment on above: Performed By: #### U CLINT, CMP, LIPID, DBIL, PHOS, MG #### [facility] [address] [place] [address] Dr. Brea Causey AST [Catalytic activity/Vol] 19 U/L Normal 15-37 [facility] Comment on above: Performed By: #### U CLINT, CMP, LIPID, DBIL, PHOS, MG #### [facility] [address] [place] [address] Dr. Brea Causey Bilirubin [Mass/Vol] 0.3 mg/dL Normal 0.2-1.0 [facility] Comment on above: Performed By: #### U CLINT, CMP, LIPID, DBIL, PHOS, MG #### [facility] [address] [place] [address] Dr. Brea Causey Calcium [Mass/Vol] 8.0 mg/dL Critically low 8.5-10.1 [facility] Comment on above: Performed By: #### U CLINT, CMP, LIPID, DBIL, PHOS, MG #### [facility] [address] [place] [address] Dr. Brea Causey Chloride [Moles/Vol] 96 mmol/L Critically low 98-107 [facility] Comment on above: Performed By: #### U CLINT, CMP, LIPID, DBIL, PHOS, MG #### [facility] [address] [address] [address] Brea Causey CO2 [Moles/Vol] 28.0 mmol/L Normal 21.0-32.[address] [facility] Comment on above: Performed By: #### U CLINT, CMP, LIPID, DBIL, PHOS, MG #### [facility] [address] [place] [address] Dr. Brea Causey Creatinine [Mass/Vol] 1.07 mg/dL Normal 0.70-1.30 [facility] Comment on above: Performed By: #### U CLINT, CMP, LIPID, DBIL, PHOS, MG #### [facility] [address] [place] [address] Dr. Brea Causey EGFR-AF BULGARIAN >60 Normal >=[address] [facility] Comment on above: Performed By: #### U CLINT, CMP, LIPID, DBIL, PHOS, MG #### [facility] [address] [place] [address] Dr. Brea Causey EGFR-NON AF BULGARIAN >60 Normal >=60 [facility] Comment on above: Performed By: #### U CLINT, CMP, LIPID, DBIL, PHOS, MG #### [facility] [address] [place] [address] Dr. Brea Causey Globulin (S) [Mass/Vol] 3.5 g/dL Normal [facility] Comment on above: Performed By: #### U CLINT, CMP, LIPID, DBIL, PHOS, MG #### [facility] [address] [place] [address] Dr. Brea Causey Glucose [Mass/Vol] 179 mg/dL Critically high 74-106 T [facility] Comment on above: Performed By: #### U CLINT, CMP, LIPID, DBIL, PHOS, MG #### [facility] [address] [place] [address] Dr. Brea Causey Potassium [Moles/Vol] 5.1 mmol/L Normal 3.5-5.1 [facility] Comment on above: Performed By: #### U CLINT, CMP, LIPID, DBIL, PHOS, MG #### [facility] [address] [address] [address] Brea Causey Protein [Mass/Vol] 7.3 g/dL Normal 6.4-8.2 [facility] Comment on above: Performed By: #### U CLINT, CMP, LIPID, DBIL, PHOS, MG #### [facility] [address] [address] [address] Brea Causey Sodium [Moles/Vol] 131 mmol/L Critically low 136-145 Th [facility] Comment on above: Performed By: #### U CLINT, CMP, LIPID, DBIL, PHOS, MG #### [facility] [address] [address] [address] Brea Causey Urea nitrogen [Mass/Vol] 10.0 mg/dL Normal 7.0-18.0 [facility] Comment on above: Performed By: #### U CLINT, CMP, LIPID, DBIL, PHOS, MG #### [facility] [address] [address] [address] Brea Causey Urea nitrogen/Creatinine [Mass ratio] 9.3 mg/mg Normal [facility] Comment on above: Performed By: #### U CLINT, CMP, LIPID, DBIL, PHOS, MG #### [facility] [address] [address] [address] Brea Causey URIC ACID SERUMon 08-30-2022 Urate [Mass/Vol] 6.0 mg/dL Normal 3.5-7.[address] [facility] Comment on above: Performed By: #### U CLINT, CMP, LIPID, DBIL, PHOS, MG #### [facility] [address] [address] [address] Brea Causey FK506 (TACROLIMUS) WHOLE BLO ODon 08-03-2022 Tacrolimus (FK506), Blood 3.2 ng/mL Normal 2.0-20.0 [facility] Comment on above: Result Comment: Trou gh (immediately following transplant) 15.0 . Trough (steady state, 2 weeks or more after transplant): 3.0 - 8.0 . Performed by CECE-MS/MS technology. Performed By: #### C BC #### [facility] [address] [place] [address] Dr. Brea Causey BILIRUBIN CONJUGATED (DIRECT )on 08-01-2022 BILI, CONJUGATED 0.1 mg/dL Normal 0.0-0.[address] [facility] Comment on above: Performed By: #### U CLINT, CMP, LIPID, DBIL, PHOS, MG #### [facility] [address] [place] [address] Dr. Brea Causey CBC AUTO DIFFon 08-01-2022 BASO # 0.0 103/ul Normal 0.0-0.1 [facility] Comment on above: Performed By: #### C BC #### [facility] [address] [place] [address] Dr. Brea Causey Basophils/100 WBC (Bld) 0.7 % Normal 0.2-2.0 [facility] Comment on above: Performed By: #### C BC #### [facility] [address] [place] [address] Dr. Brea Causey EO # 0.1 103/ul Normal 0.0-0.7 [facility] Comment on above: Performed By: #### C BC #### [facility] [address] [place] [address] Dr. Brea Causey Eosinophils/100 WBC (Bld) 2.4 % Normal 0.9-7.0 [facility] Comment on above: Performed By: #### C BC #### [facility] [address] [place] [address] Dr. Brea Causey Erythrocyte distribution width (RBC) [Ratio] 13.3 % Normal 11.0-15.0 [facility] Comment on above: Performed By: #### C BC #### [facility] [address] [place] [address] Dr. Brea Causey Hematocrit (Bld) [Volume fraction] 36.5 % Critically low 42.0-54.0 [facility] Comment on above: Performed By: #### C BC #### [facility] [address] [address] [address] Brea Causey Hemoglobin (Bld) [Mass/Vol] 12.1 g/dL Critically low 14.0-18.0 [facility] Comment on above: Performed By: #### C BC #### [facility] [address] [place] [address] Dr. Brea Causey IG # 0.07 10e3/ul Critically high 0.00-0.03 [facility] Comment on above: Performed By: #### C BC #### [facility] [address] [place] [address] Dr. Brea Causey IG % 1.2 % Critically high 0.0-0.5 [facility] Comment on above: Performed By: #### C BC #### [facility] [address] [place] [address] Dr. Brea Causey LYMPH # 0.9 103/ul Critically low 1.2-3.8 [facility] Comment on above: Performed By: #### C BC #### [facility] [address] [place] [address] Dr. Brea Causey Lymphocytes/100 WBC (Bld) 14.5 % Critically low 20.5-60.0 [facility] Comment on above: Performed By: #### C BC #### [facility] [address] [place] [address] Dr. Brea Causey MANUAL DIFF REQ NO Normal [facility] Comment on above: Performed By: #### C BC #### [facility] [address] [address] [address] Brea Causey MCH (RBC) [Entitic mass] 28.8 pg Normal 25.9-34.0 [facility] Comment on above: Performed By: #### C BC #### [facility] [address] [place] [address] Dr. Brea Causey MCHC (RBC) [Mass/Vol] 33.2 g/dL Normal 29.9-35.2 [facility] Comment on above: Performed By: #### C BC #### [facility] [address] [place] [address] Dr. Brea Causey MCV (RBC) [Entitic vol] 86.9 fL Normal 80.0-94.0 [facility] Comment on above: Performed By: #### C BC #### [facility] [address] [place] [address] Dr. Brea Causey MONO # 0.6 103/ul Normal 0.3-0.8 [facility] Comment on above: Performed By: #### C BC #### [facility] [address] [place] [address] Dr. Brea Causey Monocytes/100 WBC (Bld) 10.3 % Normal 1.7-12.0 [facility] Comment on above: Performed By: #### C BC #### [facility] [address] [place] [address] Dr. Brea Causey NEUT # 4.2 103/ul Normal 1.4-6.5 [facility] Comment on above: Performed By: #### C BC #### [facility] [address] [place] [address] Dr. Brea Causey Neutrophils/100 WBC (Bld) 70.9 % Normal 43.0-75.0 [facility] Comment on above: Performed By: #### C BC #### [facility] [address] [place] [address] Dr. Brea Causey Platelet mean volume (Bld) [Entitic vol] 9.1 fL Critically low 9.5-13.5 [facility] Comment on above: Performed By: #### C BC #### [facility] [address] [place] [address] Dr. Brea Causey PLT 248 103/ul Normal 150-450 [facility] Comment on above: Performed By: #### C BC #### [facility] [address] [place] [address] Dr. Brea Causey RBC 4.20 106/ul Critically low 4.70-6.10 [facility] Comment on above: Performed By: #### C BC #### [facility] [address] [place] [address] Dr. Brea Causey WBC 5.9 103/ul Normal 4.0-11.0 [facility] Comment on above: Performed By: #### C BC #### [facility] [address] [place] [address] Dr. Brea Causey LIPID PROFILEon 08-01-2022 CHOL-HDL RATIO NORM SEE BELOW [facility] Comment on above: Result Comment: 3.3 - 4.4 LOW RISK 4.4 - 7.1 AVERAGE RISK 7.1 - 11.0 MODERATE RISK >11.0 HIGH RISK Performed By: #### U CLINT, CMP, LIPID, DBIL, PHOS, MG #### [facility] [address] [place] [address] Dr. Brea Causey Cholesterol [Mass/Vol] 95 mg/dL Normal <=200 Th [facility] Comment on above: Performed By: #### U CLINT, CMP, LIPID, DBIL, PHOS, MG #### [facility] [address] [place] [address] Dr. Brea Causey Cholesterol in HDL [Mass/Vol] 49 mg/dL Normal 40-60 [facility] Comment on above: Performed By: #### U CLINT, CMP, LIPID, DBIL, PHOS, MG #### [facility] [address] [place] [address] Dr. Brea Causey Cholesterol in LDL [Mass/Vol] 35.4 mg/dL Normal [facility] Comment on above: Performed By: #### U CLINT, CMP, LIPID, DBIL, PHOS, MG #### [facility] [address] [place] [address] Dr. Brea Causey Cholesterol.total/Chol esterol in HDL [Mass ratio] 1.9 {ratio} Normal [facility] Comment on above: Performed By: #### U CLINT, CMP, LIPID, DBIL, PHOS, MG #### [facility] [address] [place] [address] Dr. Brea Causey HDL NORMAL > or = 60 mg/dl - LO W CARDIOVASCULAR RISK <40 mg/dl - HIGH CARDIOVASCULAR RISK Normal [facility] Comment on above: Performed By: #### U CLINT, CMP, LIPID, DBIL, PHOS, MG #### [facility] [address] [address] [address] Brea Causey LDL CALC NORMAL SEE BELOW Normal [facility] Comment on above: Result Comment: <100 mg/dl OPTIMAL 100 - 129 mg/dl NEAR OR ABOVE OPTIMAL 130 - 159 mg/dl BORDERLINE HIGH 160 - 189 mg/dl HIGH >190 mg/dl VERY HIGH Performed By: #### U CLINT, CMP, LIPID, DBIL, PHOS, MG #### [facility] [address] [address] [address] Brea Causey Triglyceride [Mass/Vol] 53 mg/dL Normal <=150 [facility] Comment on above: Performed By: #### U CLINT, CMP, LIPID, DBIL, PHOS, MG #### [facility] [address] [place] [address] Dr. Brea Causey VLDL CALC 10.6 mg/dL Normal [facility] Comment on above: Performed By: #### U CLINT, CMP, LIPID, DBIL, PHOS, MG #### [facility] [address] [place] [address] Dr. Brea Causey MAGNESIUMon 08-01-2022 Magnesium [Mass/Vol] 1.5 mg/dL Critically low 1.8-2.4 [facility] Comment on above: Performed By: #### U CLINT, CMP, LIPID, DBIL, PHOS, MG #### [facility] [address] [place] [address] Dr. Brea Causey PHOSPHORUSon 08-01-2022 Phosphate [Mass/Vol] 3.8 mg/dL Normal 2.6-4.7 [facility] Comment on above: Performed By: #### U CLINT, CMP, LIPID, DBIL, PHOS, MG #### [facility] [address] [address] [address] Brea Causey PROF 14(COMP METB)on 023 Albumin [Mass/Vol] 4.1 g/dL Normal 3.4-5.0 [facility] Comment on above: Performed By: #### U CLINT, CMP, LIPID, DBIL, PHOS, MG #### [facility] [address] [place] [address] Dr. Brea Causey Albumin/Globulin [Mass ratio] 1.3 {ratio} Normal [facility] Comment on above: Performed By: #### U CLINT, CMP, LIPID, DBIL, PHOS, MG #### [facility] [address] [address] [address] Brea Causey ALP [Catalytic activity/Vol] 197 U/L Critically high 46-116 [facility] Comment on above: Performed By: #### U CLINT, CMP, LIPID, DBIL, PHOS, MG #### [facility] [address] [place] [address] Dr. Brea Causey ALT [Catalytic activity/Vol] 26 U/L Normal 16-63 [facility] Comment on above: Performed By: #### U CLINT, CMP, LIPID, DBIL, PHOS, MG #### [facility] [address] [place] [address] Dr. Brea Causey Anion gap [Moles/Vol] 12.6 mmol/L Normal [facility] Comment on above: Performed By: #### U CLINT, CMP, LIPID, DBIL, PHOS, MG #### [facility] [address] [place] [address] Dr. Brea Causey AST [Catalytic activity/Vol] 20 U/L Normal 15-37 [facility] Comment on above: Performed By: #### U CLINT, CMP, LIPID, DBIL, PHOS, MG #### [facility] [address] [place] [address] Dr. Brea Causey Bilirubin [Mass/Vol] 0.4 mg/dL Normal 0.2-1.0 [facility] Comment on above: Performed By: #### U CLINT, CMP, LIPID, DBIL, PHOS, MG #### [facility] [address] [place] [address] Dr. Brea Causey Calcium [Mass/Vol] 7.9 mg/dL Critically low 8.5-10.1 [facility] Comment on above: Performed By: #### U CLINT, CMP, LIPID, DBIL, PHOS, MG #### [facility] [address] [address] [address] Brea Causey Chloride [Moles/Vol] 97 mmol/L Critically low 98-107 [facility] Comment on above: Performed By: #### U CLINT, CMP, LIPID, DBIL, PHOS, MG #### [facility] [address] [address] [address] Brea Causey CO2 [Moles/Vol] 28.9 mmol/L Normal 21.0-32.[address] [facility] Comment on above: Performed By: #### U CLINT, CMP, LIPID, DBIL, PHOS, MG #### [facility] [address] [address] [address] Brea Causey Creatinine [Mass/Vol] 0.98 mg/dL Normal 0.70-1.30 [facility] Comment on above: Performed By: #### U CLINT, CMP, LIPID, DBIL, PHOS, MG #### [facility] [address] [place] [address] Dr. Brea Causey EGFR-AF BULGARIAN >60 Normal >=[address] [facility] Comment on above: Performed By: #### U CLINT, CMP, LIPID, DBIL, PHOS, MG #### [facility] [address] [place] [address] Dr. Brea Causey EGFR-NON AF BULGARIAN >60 Normal >=60 [facility] Comment on above: Performed By: #### U CLINT, CMP, LIPID, DBIL, PHOS, MG #### [facility] [address] [address] [address] Brea Causey Globulin (S) [Mass/Vol] 3.2 g/dL Normal [facility] Comment on above: Performed By: #### U CLINT, CMP, LIPID, DBIL, PHOS, MG #### [facility] [address] [place] [address] Dr. Brea Causey Glucose [Mass/Vol] 174 mg/dL Critically high 74-106 T [facility] Comment on above: Performed By: #### U CLINT, CMP, LIPID, DBIL, PHOS, MG #### [facility] [address] [address] [address] Brea Causey Potassium [Moles/Vol] 4.5 mmol/L Normal 3.5-5.1 [facility] Comment on above: Performed By: #### U CLINT, CMP, LIPID, DBIL, PHOS, MG #### [facility] [address] [place] [address] Dr. Brea Causey Protein [Mass/Vol] 7.3 g/dL Normal 6.4-8.2 [facility] Comment on above: Performed By: #### U CLINT, CMP, LIPID, DBIL, PHOS, MG #### [facility] [address] [address] [address] Brea Causey Sodium [Moles/Vol] 134 mmol/L Critically low 136-145 Th [facility] Comment on above: Performed By: #### U CLINT, CMP, LIPID, DBIL, PHOS, MG #### [facility] [address] [place] [address] Dr. Brea Causey Urea nitrogen [Mass/Vol] 8.0 mg/dL Normal 7.0-18.0 [facility] Comment on above: Performed By: #### U CLINT, CMP, LIPID, DBIL, PHOS, MG #### [facility] [address] [place] [address] Dr. Brea Causey Urea nitrogen/Creatinine [Mass ratio] 8.2 mg/mg Normal [facility] Comment on above: Performed By: #### U CLINT, CMP, LIPID, DBIL, PHOS, MG #### [facility] [address] [place] [address] Dr. Brea Causey URIC ACID SERUMon 08-01-2022 Urate [Mass/Vol] 5.8 mg/dL Normal 3.5-7.[address] [facility] Comment on above: Performed By: #### U CLINT, CMP, LIPID, DBIL, PHOS, MG #### [facility] [address] [place] [address] Dr. Brea Causey FK506 (TACROLIMUS) WHOLE BLO ODon 07-07-2022 Tacrolimus (FK506), Blood 3.6 ng/mL Normal 2.0-20.0 [facility] Comment on above: Result Comment: Trou gh (immediately following transplant) 15.0 . Trough (steady state, 2 weeks or more after transplant): 3.0 - 8.0 . Performed by LC-MS/MS technology. Performed By: #### C BC #### [facility] [address] [place] [address] Dr. Brea Causey BILIRUBIN CONJUGATED (DIRECT )on 07-04-2022 BILI, CONJUGATED 0.1 mg/dL Normal 0.0-0.[address] [facility] Comment on above: Performed By: #### B KVIRUS #### [facility] [address] [place] [address] Dr. Brea Causey CBC AUTO DIFFon 07-04-2022 BASO # 0.0 103/ul Normal 0.0-0.1 [facility] Comment on above: Performed By: #### U CLINT, CMP, LIPID, DBIL, PHOS, MG #### [facility] [address] [place] [address] Dr. Brea Causey Basophils/100 WBC (Bld) 0.5 % Normal 0.2-2.0 [facility] Comment on above: Performed By: #### U CLINT, CMP, LIPID, DBIL, PHOS, MG #### [facility] [address] [place] [address] Dr. Brea Causey EO # 0.2 103/ul Normal 0.0-0.7 [facility] Comment on above: Performed By: #### U CLINT, CMP, LIPID, DBIL, PHOS, MG #### [facility] [address] [place] [address] Dr. Brea Causey Eosinophils/100 WBC (Bld) 2.6 % Normal 0.9-7.0 [facility] Comment on above: Performed By: #### U CLINT, CMP, LIPID, DBIL, PHOS, MG #### [facility] [address] [place] [address] Dr. Brea Causey Erythrocyte distribution width (RBC) [Ratio] 13.3 % Normal 11.0-15.0 [facility] Comment on above: Performed By: #### U CLINT, CMP, LIPID, DBIL, PHOS, MG #### [facility] [address] [address] [address] Brea Causey Hematocrit (Bld) [Volume fraction] 37.2 % Critically low 42.0-54.0 [facility] Comment on above: Performed By: #### U CLINT, CMP, LIPID, DBIL, PHOS, MG #### [facility] [address] [place] [address] Dr. Brea Causey Hemoglobin (Bld) [Mass/Vol] 12.4 g/dL Critically low 14.0-18.0 [facility] Comment on above: Performed By: #### U CLINT, CMP, LIPID, DBIL, PHOS, MG #### [facility] [address] [place] [address] Dr. Brea Causey IG # 0.09 10e3/ul Critically high 0.00-0.03 [facility] Comment on above: Performed By: #### U CLINT, CMP, LIPID, DBIL, PHOS, MG #### [facility] [address] [place] [address] Dr. Brea Causey IG % 1.4 % Critically high 0.0-0.5 [facility] Comment on above: Performed By: #### U CLINT, CMP, LIPID, DBIL, PHOS, MG #### [facility] [address] [place] [address] Dr. Brea Causey LYMPH # 1.0 103/ul Critically low 1.2-3.8 [facility] Comment on above: Performed By: #### U CLINT, CMP, LIPID, DBIL, PHOS, MG #### [facility] [address] [address] [address] Brea Causey Lymphocytes/100 WBC (Bld) 15.2 % Critically low 20.5-60.0 [facility] Comment on above: Performed By: #### U CLINT, CMP, LIPID, DBIL, PHOS, MG #### [facility] [address] [place] [address] Dr. Brea Causey MANUAL DIFF REQ NO Normal [facility] Comment on above: Performed By: #### U CLINT, CMP, LIPID, DBIL, PHOS, MG #### [facility] [address] [place] [address] Dr. Brea Causey MCH (RBC) [Entitic mass] 28.8 pg Normal 25.9-34.0 [facility] Comment on above: Performed By: #### U CLINT, CMP, LIPID, DBIL, PHOS, MG #### [facility] [address] [place] [address] Dr. Brea Causey MCHC (RBC) [Mass/Vol] 33.3 g/dL Normal 29.9-35.2 [facility] Comment on above: Performed By: #### U CLINT, CMP, LIPID, DBIL, PHOS, MG #### [facility] [address] [place] [address] Dr. Brea Causey MCV (RBC) [Entitic vol] 86.5 fL Normal 80.0-94.0 [facility] Comment on above: Performed By: #### U CLINT, CMP, LIPID, DBIL, PHOS, MG #### [facility] [address] [place] [address] Dr. Brea Causey MONO # 0.7 103/ul Normal 0.3-0.8 [facility] Comment on above: Performed By: #### U CLINT, CMP, LIPID, DBIL, PHOS, MG #### [facility] [address] [place] [address] Dr. Brea Causey Monocytes/100 WBC (Bld) 10.0 % Normal 1.7-12.0 [facility] Comment on above: Performed By: #### U CLINT, CMP, LIPID, DBIL, PHOS, MG #### [facility] [address] [place] [address] Dr. Brea Causey NEUT # 4.6 103/ul Normal 1.4-6.5 [facility] Comment on above: Performed By: #### U CLINT, CMP, LIPID, DBIL, PHOS, MG #### [facility] [address] [place] [address] Dr. Brea Causey Neutrophils/100 WBC (Bld) 70.3 % Normal 43.0-75.0 [facility] Comment on above: Performed By: #### U CLINT, CMP, LIPID, DBIL, PHOS, MG #### [facility] [address] [address] [address] Brea Causey Platelet mean volume (Bld) [Entitic vol] 8.8 fL Critically low 9.5-13.5 [facility] Comment on above: Performed By: #### U CLINT, CMP, LIPID, DBIL, PHOS, MG #### [facility] [address] [address] [address] Brea Causey PLT 240 103/ul Normal 150-450 [facility] Comment on above: Performed By: #### U CLINT, CMP, LIPID, DBIL, PHOS, MG #### [facility] [address] [place] [address] Dr. Brea Causey RBC 4.30 106/ul Critically low 4.70-6.10 [facility] Comment on above: Performed By: #### U CLINT, CMP, LIPID, DBIL, PHOS, MG #### [facility] [address] [address] [address] Brea Causey WBC 6.5 103/ul Normal 4.0-11.0 [facility] Comment on above: Performed By: #### U CLINT, CMP, LIPID, DBIL, PHOS, MG #### [facility] [address] [address] [address] Brea Causey LIPID PROFILEon 07-04-2022 CHOL-HDL RATIO NORM SEE BELOW Normal [facility] Comment on above: Result Comment: 3.3 - 4.4 LOW RISK 4.4 - 7.1 AVERAGE RISK 7.1 - 11.0 MODERATE RISK >11.0 HIGH RISK Performed By: #### U CLINT, CMP, LIPID, DBIL, PHOS, MG #### [facility] [address] [address] [address] Brea Causey Cholesterol [Mass/Vol] 86 mg/dL Normal <=200 Th [facility] Comment on above: Performed By: #### U CLITN, CMP, LIPID, DBIL, PHOS, MG #### [facility] [address] [address] [address] Brea Causey Cholesterol in HDL [Mass/Vol] 44 mg/dL Normal 40-60 [facility] Comment on above: Performed By: #### U CLINT, CMP, LIPID, DBIL, PHOS, MG #### [facility] [address] [address] [address] Brea Causey Cholesterol in LDL [Mass/Vol] 28.0 mg/dL Normal [facility] Comment on above: Performed By: #### U CLINT, CMP, LIPID, DBIL, PHOS, MG #### [facility] [address] [place] [address] Dr. Brea Causey Cholesterol.total/Chol esterol in HDL [Mass ratio] 2.0 {ratio} Normal [facility] Comment on above: Performed By: #### U CLINT, CMP, LIPID, DBIL, PHOS, MG #### [facility] [address] [address] [address] Brea Causey HDL NORMAL > or = 60 mg/dl - LO W CARDIOVASCULAR RISK <40 mg/dl - HIGH CARDIOVASCULAR RISK Normal [facility] Comment on above: Performed By: #### U CLINT, CMP, LIPID, DBIL, PHOS, MG #### [facility] [address] [place] [address] Dr. Brea Causey LDL CALC NORMAL SEE BELOW Normal [facility] Comment on above: Result Comment: <100 mg/dl OPTIMAL 100 - 129 mg/dl NEAR OR ABOVE OPTIMAL 130 - 159 mg/dl BORDERLINE HIGH 160 - 189 mg/dl HIGH >190 mg/dl VERY HIGH Performed By: #### U CLINT, CMP, LIPID, DBIL, PHOS, MG #### [facility] [address] [address] [address] Brea Causey Triglyceride [Mass/Vol] 70 mg/dL Normal <=150 [facility] Comment on above: Performed By: #### U CLINT, CMP, LIPID, DBIL, PHOS, MG #### [facility] [address] [place] [address] Dr. Brea Causey VLDL CALC 14.0 mg/dL Normal [facility] Comment on above: Performed By: #### U CLINT, CMP, LIPID, DBIL, PHOS, MG #### [facility] [address] [place] [address] Dr. Brea Causey MAGNESIUMon 07-04-2022 Magnesium [Mass/Vol] 1.4 mg/dL Critically low 1.8-2.4 [facility] Comment on above: Performed By: #### U CLINT, CMP, LIPID, DBIL, PHOS, MG #### [facility] [address] [place] [address] Dr. Brea Causey PHOSPHORUSon 07-04-2022 Phosphate [Mass/Vol] 4.1 mg/dL Normal 2.6-4.7 [facility] Comment on above: Performed By: #### U CLINT, CMP, LIPID, DBIL, PHOS, MG #### [facility] [address] [place] [address] Dr. Brea Causey PROF 14(COMP METB)on 023 Albumin [Mass/Vol] 4.0 g/dL Normal 3.4-5.0 [facility] Comment on above: Performed By: #### B KVIRUS #### [facility] [address] [place] [address] Dr. Brea Causey Albumin/Globulin [Mass ratio] 1.3 {ratio} Normal [facility] Comment on above: Performed By: #### B KVIRUS #### [facility] [address] [place] [address] Dr. Brea Causey ALP [Catalytic activity/Vol] 212 U/L Critically high 46-116 [facility] Comment on above: Performed By: #### B KVIRUS #### [facility] [address] [place] [address] Dr. Brea Causey ALT [Catalytic activity/Vol] 31 U/L Normal 16-63 [facility] Comment on above: Performed By: #### B KVIRUS #### [facility] [address] [place] [address] Dr. Brea Causey Anion gap [Moles/Vol] 11.9 mmol/L Normal [facility] Comment on above: Performed By: #### B KVIRUS #### [facility] [address] [place] [address] Dr. Brea Causey AST [Catalytic activity/Vol] 21 U/L Normal 15-37 [facility] Comment on above: Performed By: #### B KVIRUS #### [facility] [address] [place] [address] Dr. Brea Causey Bilirubin [Mass/Vol] 0.3 mg/dL Normal 0.2-1.0 [facility] Comment on above: Performed By: #### B KVIRUS #### [facility] [address] [place] [address] Dr. Brea Causey Calcium [Mass/Vol] 8.1 mg/dL Critically low 8.5-10.1 [facility] Comment on above: Performed By: #### B KVIRUS #### [facility] [address] [place] [address] Dr. Brea Causey Chloride [Moles/Vol] 97 mmol/L Critically low 98-107 [facility] Comment on above: Performed By: #### B KVIRUS #### [facility] [address] [place] [address] Dr. Brea Causey CO2 [Moles/Vol] 26.8 mmol/L Normal 21.0-32.[address] [facility] Comment on above: Performed By: #### B KVIRUS #### [facility] [address] [place] [address] Dr. Brea Causey Creatinine [Mass/Vol] 0.99 mg/dL Normal 0.70-1.30 [facility] Comment on above: Performed By: #### B KVIRUS #### [facility] [address] [place] [address] Dr. Brea Causey EGFR-AF BULGARIAN >60 Normal >=[address] [facility] Comment on above: Performed By: #### B KVIRUS #### [facility] [address] [place] [address] Dr. Brea Causey EGFR-NON AF BULGARIAN >60 Normal >=60 [facility] Comment on above: Performed By: #### B KVIRUS #### [facility] [address] [place] [address] Dr. Brea Causey Globulin (S) [Mass/Vol] 3.2 g/dL Normal [facility] Comment on above: Performed By: #### B KVIRUS #### [facility] [address] [place] [address] Dr. Brea Causey Glucose [Mass/Vol] 169 mg/dL Critically high 74-106 T [facility] Comment on above: Performed By: #### B KVIRUS #### [facility] [address] [place] [address] Dr. Brea Causey Potassium [Moles/Vol] 4.7 mmol/L Normal 3.5-5.1 [facility] Comment on above: Performed By: #### B KVIRUS #### [facility] [address] [place] [address] Dr. Brea Causey Protein [Mass/Vol] 7.2 g/dL Normal 6.4-8.2 [facility] Comment on above: Performed By: #### B KVIRUS #### [facility] [address] [place] [address] Dr. Brea Causey Sodium [Moles/Vol] 131 mmol/L Critically low 136-145 [facility] Comment on above: Performed By: #### B KVIRUS #### [facility] [address] [place] [address] Dr. Brea Causey Urea nitrogen [Mass/Vol] 9.0 mg/dL Normal 7.0-18.0 [facility] Comment on above: Performed By: #### B KVIRUS #### [facility] [address] [place] [address] Dr. Brea Causey Urea nitrogen/Creatinine [Mass ratio] 9.1 mg/mg Normal [facility] Comment on above: Performed By: #### B KVIRUS #### [facility] [address] [place] [address] Dr. Brea Causey URIC ACID SERUMon 07-04-2022 Urate [Mass/Vol] 6.1 mg/dL Normal 3.5-7.[address] [facility] Comment on above: Performed By: #### U CLINT, CMP, LIPID, DBIL, PHOS, MG #### [facility] [address] [address] [address] Brea Causey TESTOSTERONE, FREE,DIRECT, T OTALon 05-28-2022 Free Testosterone(Direct) 5.9 pg/mL Critically low 6.6-18.1 [facility] Comment on above: Result Comment: Perf ormed at: BN Performed By: #### U CLINT, CMP, LIPID, DBIL, PHOS, MG #### [facility] [address] [address] [address] Brea Causey Testosterone [Mass/Vol] 513 ng/dL Normal 264-916 [facility] Comment on above: Result Comment: Adul t male reference interval is based on a population of healthy nonobese males (BMI <30) between 19 and 39 years old. Steven et.al. JCEM 2017,102;9680-4826. PMID: [id number]. Performed at: CB Performed By: #### U CLINT, CMP, LIPID, DBIL, PHOS, MG #### [facility] [address] [place] [address] Dr. Brea Causey FK506 (TACROLIMUS) WHOLE BLO ODon 05-26-2022 Tacrolimus (FK506), Blood 3.9 ng/mL Normal 2.0-20.0 [facility] Comment on above: Result Comment: Trou gh (immediately following transplant) 15.0 . Trough (steady state, 2 weeks or more after transplant): 3.0 - 8.0 . Performed by LC-MS/MS technology. Performed By: #### B KVIRUS #### [facility] [address] [id number] Brea Causey BK VIRUS PCR QUANTon 023 BKV DNA QUANT PCR PLASMA Negative Normal Negative [facility] Comment on above: Result Comment: No B K DNA detected. . The linear range of the assay is 22 - 100,000,000 IU/mL. Performed By: #### U CLINT, CMP, LIPID, DBIL, PHOS, MG #### [facility] [address] [address] [address] Brea Causey Log10 BKV DNA Plasma Normal [facility] Comment on above: Performed By: #### U CLINT, CMP, LIPID, DBIL, PHOS, MG #### [facility] [address] [place] [address] Dr. Brea Causey BILIRUBIN CONJUGATED (DIRECT )on 05-23-2022 BILI, CONJUGATED 0.2 mg/dL Normal 0.0-0.[address] [facility] Comment on above: Performed By: #### C BC #### [facility] [address] [place] [address] Dr. Brea Causey CBC AUTO DIFFon 05-23-2022 BASO # 0.0 103/ul Normal 0.0-0.1 [facility] Comment on above: Performed By: #### B KVIRUS #### [facility] [address] [place] [address] Dr. Brea Causey Basophils/100 WBC (Bld) 0.6 % Normal 0.2-2.0 [facility] Comment on above: Performed By: #### B KVIRUS #### [facility] [address] [place] [address] Dr. Brea Causey EO # 0.1 103/ul Normal 0.0-0.7 [facility] Comment on above: Performed By: #### B KVIRUS #### [facility] [address] [place] [address] Dr. Brea Causey Eosinophils/100 WBC (Bld) 1.7 % Normal 0.9-7.0 [facility] Comment on above: Performed By: #### B KVIRUS #### [facility] [address] [place] [address] Dr. Brea Causey Erythrocyte distribution width (RBC) [Ratio] 13.4 % Normal 11.0-15.0 [facility] Comment on above: Performed By: #### B KVIRUS #### [facility] [address] [place] [address] Dr. Brea Causey Hematocrit (Bld) [Volume fraction] 38.8 % Critically low 42.0-54.0 [facility] Comment on above: Performed By: #### B KVIRUS #### [facility] [address] [place] [address] Dr. Brea Causey Hemoglobin (Bld) [Mass/Vol] 12.4 g/dL Critically low 14.0-18.0 [facility] Comment on above: Performed By: #### B KVIRUS #### [facility] [address] [place] [address] Dr. Brea Causey IG # 0.07 10e3/ul Critically high 0.00-0.03 [facility] Comment on above: Performed By: #### B KVIRUS #### [facility] [address] [place] [address] Dr. Brea Causey IG % 1.1 % Critically high 0.0-0.5 [facility] Comment on above: Performed By: #### B KVIRUS #### [facility] [address] [place] [address] Dr. Brea Causey LYMPH # 0.9 103/ul Critically low 1.2-3.8 [facility] Comment on above: Performed By: #### B KVIRUS #### [facility] [address] [place] [address] Dr. Brea Causey Lymphocytes/100 WBC (Bld) 14.1 % Critically low 20.5-60.0 [facility] Comment on above: Performed By: #### B KVIRUS #### [facility] [address] [place] [address] Dr. Brea Causey MANUAL DIFF REQ NO Normal [facility] Comment on above: Performed By: #### B KVIRUS #### [facility] [address] [place] [address] Dr. Brea Causey MCH (RBC) [Entitic mass] 29.3 pg Normal 25.9-34.0 [facility] Comment on above: Performed By: #### B KVIRUS #### [facility] [address] [place] [address] Dr. Brea Causey MCHC (RBC) [Mass/Vol] 32.0 g/dL Normal 29.9-35.2 [facility] Comment on above: Performed By: #### B KVIRUS #### [facility] [address] [place] [address] Dr. Brea Causey MCV (RBC) [Entitic vol] 91.7 fL Normal 80.0-94.0 [facility] Comment on above: Performed By: #### B KVIRUS #### [facility] [address] [place] [address] Dr. Brea Causey MONO # 0.7 103/ul Normal 0.3-0.8 [facility] Comment on above: Performed By: #### B KVIRUS #### [facility] [address] [place] [address] Dr. Brea Causey Monocytes/100 WBC (Bld) 10.0 % Normal 1.7-12.0 [facility] Comment on above: Performed By: #### B KVIRUS #### [facility] [address] [place] [address] Dr. Brea Causey NEUT # 4.7 103/ul Normal 1.4-6.5 [facility] Comment on above: Performed By: #### B KVIRUS #### [facility] [address] [place] [address] Dr. Brea Causey Neutrophils/100 WBC (Bld) 72.5 % Normal 43.0-75.0 [facility] Comment on above: Performed By: #### B KVIRUS #### [facility] [address] [place] [address] Dr. Brea Causey Platelet mean volume (Bld) [Entitic vol] 9.4 fL Critically low 9.5-13.5 [facility] Comment on above: Performed By: #### B KVIRUS #### [facility] [address] [place] [address] Dr. Brea Causey PLT 256 103/ul Normal 150-450 [facility] Comment on above: Performed By: #### B KVIRUS #### [facility] [address] [place] [address] Dr. Brea Causey RBC 4.23 106/ul Critically low 4.70-6.10 [facility] Comment on above: Performed By: #### B KVIRUS #### [facility] [address] [address] [address] Brea Causey WBC 6.5 103/ul Normal 4.0-11.0 [facility] Comment on above: Performed By: #### B KVIRUS #### [facility] [address] [address] [address] Brea Causey GLYCOHEMOGLOBIN A1Con 2022 ADA RECOMMENDATION SEE BELOW Normal [facility] Comment on above: Result Comment: ADA RECOMMENDED LIMIT 4.0 - 6.0 ADA THERAPEUTIC TARGET < 7.0 ACTION SUGGESTED > 7.0 Performed By: #### U CLINT, CMP, LIPID, DBIL, PHOS, MG #### [facility] [facility] [address] [address] [address] Brea Causey Glucose [Mass/Vol] 160 mg/dL Normal [facility] Comment on above: Performed By: #### U CLINT, CMP, LIPID, DBIL, PHOS, MG #### [facility] [address] [address] [address] Brea Causey HbA1c (Bld) [Mass fraction] 7.2 % Critically high 4.5-6.2 [facility] Comment on above: Performed By: #### U CLINT, CMP, LIPID, DBIL, PHOS, MG #### [facility] [address] [address] [address] Brea Causey LIPID PROFILEon 05-23-2022 CHOL-HDL RATIO NORM SEE BELOW [facility] Comment on above: Result Comment: 3.3 - 4.4 LOW RISK 4.4 - 7.1 AVERAGE RISK 7.1 - 11.0 MODERATE RISK >11.0 HIGH RISK Performed By: #### C BC #### [facility] [address] [place] [address] Dr. Brea Causey Cholesterol [Mass/Vol] 87 mg/dL Normal <=200 Th [facility] Comment on above: Performed By: #### C BC #### [facility] [address] [place] [address] Dr. Brea Causey Cholesterol in HDL [Mass/Vol] 54 mg/dL Normal 40-60 [facility] Comment on above: Performed By: #### C BC #### [facility] [address] [address] [address] Brea Causey Cholesterol in LDL [Mass/Vol] 24.6 mg/dL Normal [facility] Comment on above: Performed By: #### C BC #### [facility] [address] [address] [address] Brea Causey Cholesterol.total/Chol esterol in HDL [Mass ratio] 1.6 {ratio} Normal [facility] Comment on above: Performed By: #### C BC #### [facility] [address] [place] [address] Dr. Brea Causey HDL NORMAL > or = 60 mg/dl - LO W CARDIOVASCULAR RISK <40 mg/dl - HIGH CARDIOVASCULAR RISK Normal [facility] Comment on above: Performed By: #### C BC #### [facility] [address] [place] [address] Dr. Brea Causey LDL CALC NORMAL SEE BELOW Normal [facility] Comment on above: Result Comment: <100 mg/dl OPTIMAL 100 - 129 mg/dl NEAR OR ABOVE OPTIMAL 130 - 159 mg/dl BORDERLINE HIGH 160 - 189 mg/dl HIGH >190 mg/dl VERY HIGH Performed By: #### C BC #### [facility] [address] [place] [address] Dr. Brea Causey Triglyceride [Mass/Vol] 42 mg/dL Normal <=150 [facility] Comment on above: Performed By: #### C BC #### [facility] [address] [place] [address] Dr. Brea Cuasey VLDL CALC 8.4 mg/dL Normal [facility] Comment on above: Performed By: #### C BC #### [facility] [address] [place] [address] Dr. Brea Causey MAGNESIUMon 05-23-2022 Magnesium [Mass/Vol] 1.4 mg/dL Critically low 1.8-2.4 [facility] Comment on above: Performed By: #### C BC #### [facility] [address] [place] [address] Dr. Brea Causey PHOSPHORUSon 05-23-2022 Phosphate [Mass/Vol] 3.6 mg/dL Normal 2.6-4.7 [facility] Comment on above: Performed By: #### C BC #### [facility] [address] [place] [address] Dr. Brea Causey PROF 14(COMP METB)on 023 Albumin [Mass/Vol] 3.9 g/dL Normal 3.4-5.0 [facility] Comment on above: Performed By: #### C BC #### [facility] [address] [place] [address] Dr. Brea Causey Albumin/Globulin [Mass ratio] 1.2 {ratio} Normal [facility] Comment on above: Performed By: #### C BC #### [facility] [address] [place] [address] Dr. Brea Causey ALP [Catalytic activity/Vol] 190 U/L Critically high 46-116 [facility] Comment on above: Performed By: #### C BC #### [facility] [address] [place] [address] Dr. Brea Causey ALT [Catalytic activity/Vol] 26 U/L Normal 16-63 [facility] Comment on above: Performed By: #### C BC #### [facility] [address] [place] [address] Dr. Brea Causey Anion gap [Moles/Vol] 13.1 mmol/L Normal [facility] Comment on above: Performed By: #### C BC #### [facility] [address] [place] [address] Dr. Brea Causey AST [Catalytic activity/Vol] 18 U/L Normal 15-37 [facility] Comment on above: Performed By: #### C BC #### [facility] [address] [place] [address] Dr. Brea Causey Bilirubin [Mass/Vol] 0.4 mg/dL Normal 0.2-1.0 [facility] Comment on above: Performed By: #### C BC #### [facility] [address] [place] [address] Dr. Brea Causey Calcium [Mass/Vol] 7.8 mg/dL Critically low 8.5-10.1 Th [facility] Comment on above: Performed By: #### C BC #### [facility] [address] [place] [address] Dr. Brea Causey Chloride [Moles/Vol] 95 mmol/L Critically low 98-107 [facility] Comment on above: Performed By: #### C BC #### [facility] [address] [place] [address] Dr. Brea Causey CO2 [Moles/Vol] 28.8 mmol/L Normal 21.0-32.[address] [facility] Comment on above: Performed By: #### C BC #### [facility] [address] [place] [address] Dr. Brea Causey Creatinine [Mass/Vol] 1.03 mg/dL Normal 0.70-1.30 [facility] Comment on above: Performed By: #### C BC #### [facility] [address] [place] [address] Dr. Brea Causey EGFR-AF BULGARIAN >60 Normal >=[address] [facility] Comment on above: Performed By: #### C BC #### [facility] [address] [place] [address] Dr. Brea Causey EGFR-NON AF BULGARIAN >60 Normal >=60 [facility] Comment on above: Performed By: #### C BC #### [facility] [address] [place] [address] Dr. Brea Causey Globulin (S) [Mass/Vol] 3.2 g/dL Normal [facility] Comment on above: Performed By: #### C BC #### [facility] [address] [place] [address] Dr. Brea Causey Glucose [Mass/Vol] 155 mg/dL Critically high 74-106 T [facility] Comment on above: Performed By: #### C BC #### [facility] [address] [place] [address] Dr. Brea Causey Potassium [Moles/Vol] 4.9 mmol/L Normal 3.5-5.1 [facility] Comment on above: Performed By: #### C BC #### [facility] [address] [address] [address] Brea Causey Protein [Mass/Vol] 7.1 g/dL Normal 6.4-8.2 [facility] Comment on above: Performed By: #### C BC #### [facility] [address] [address] [address] Brea Causey Sodium [Moles/Vol] 132 mmol/L Critically low 136-145 Th [facility] Comment on above: Performed By: #### C BC #### [facility] [address] [place] [address] Dr. Brea Causey Urea nitrogen [Mass/Vol] 8.0 mg/dL Normal 7.0-18.0 [facility] Comment on above: Performed By: #### C BC #### [facility] [address] [place] [address] Dr. Brea Causey Urea nitrogen/Creatinine [Mass ratio] 7.8 mg/mg Normal [facility] Comment on above: Performed By: #### C BC #### [facility] [address] [place] [address] Dr. Brea Causey URIC ACID SERUMon 05-23-2022 Urate [Mass/Vol] 5.6 mg/dL Normal 3.5-7.[address] [facility] Comment on above: Performed By: #### C BC #### [facility] [address] [place] [address] Dr. Brea Causey TESTOSTERONE, FREE,DIRECT, T OTALon 05-03-2022 Free Testosterone(Direct) 7.4 pg/mL Normal 6.6-18.1 [facility] Comment on above: Result Comment: Perf ormed at: BN Performed By: #### U CLINT, CMP, LIPID, DBIL, PHOS, MG #### [facility] [address] [address] [address] Brea Causey Testosterone [Mass/Vol] 494 ng/dL Normal 264-916 [facility] Comment on above: Result Comment: Adul t male reference interval is based on a population of healthy nonobese males (BMI <30) between 19 and 39 years old. daniel Harris.al. JCEM 2017,102;[id number]. PMID: [id number]. Performed at: CB Performed By: #### U CLINT, CMP, LIPID, DBIL, PHOS, MG #### [facility] [address] [address] [address] Brea Causey FK506 (TACROLIMUS) WHOLE BLO ODon 05-02-2022 Tacrolimus (FK506), Blood 4.3 ng/mL Normal 2.0-20.0 [facility] Comment on above: Result Comment: Trou gh (immediately following transplant) 15.0 . Trough (steady state, 2 weeks or more after transplant): 3.0 - 8.0 . Performed by LC-MS/MS technology. Performed By: #### C BC #### [facility] [address] [place] [address] Dr. Brea Causey BILIRUBIN CONJUGATED (DIRECT )on 04-30-2022 BILI, CONJUGATED 0.1 mg/dL Normal 0.0-0.[address] [facility] Comment on above: Performed By: #### U CLINT, CMP, LIPID, DBIL, PHOS, MG #### [facility] [address] [place] [address] Dr. Brea Causey CBC AUTO DIFFon 04-30-2022 BASO # 0.0 103/ul Normal 0.0-0.1 [facility] Comment on above: Performed By: #### U CLINT, CMP, LIPID, DBIL, PHOS, MG #### [facility] [address] [address] [address] Brea Causey Basophils/100 WBC (Bld) 0.5 % Normal 0.2-2.0 [facility] Comment on above: Performed By: #### U CLINT, CMP, LIPID, DBIL, PHOS, MG #### [facility] [address] [address] [address] Brea Causey EO # 0.1 103/ul Normal 0.0-0.7 [facility] Comment on above: Performed By: #### U CLINT, CMP, LIPID, DBIL, PHOS, MG #### [facility] [address] [place] [address] Dr. Brea Causey Eosinophils/100 WBC (Bld) 2.1 % Normal 0.9-7.0 [facility] Comment on above: Performed By: #### U CLINT, CMP, LIPID, DBIL, PHOS, MG #### [facility] [address] [place] [address] Dr. Brea Causey Erythrocyte distribution width (RBC) [Ratio] 13.2 % Normal 11.0-15.0 [facility] Comment on above: Performed By: #### U CLINT, CMP, LIPID, DBIL, PHOS, MG #### [facility] [address] [place] [address] Dr. Brea Causey Hematocrit (Bld) [Volume fraction] 37.0 % Critically low 42.0-54.0 [facility] Comment on above: Performed By: #### U CLINT, CMP, LIPID, DBIL, PHOS, MG #### [facility] [address] [place] [address] Dr. Brea Causey Hemoglobin (Bld) [Mass/Vol] 12.4 g/dL Critically low 14.0-18.0 [facility] Comment on above: Performed By: #### U CLINT, CMP, LIPID, DBIL, PHOS, MG #### [facility] [address] [place] [address] Dr. Brea Causey IG # 0.05 10e3/ul Critically high 0.00-0.03 [facility] Comment on above: Performed By: #### U CLINT, CMP, LIPID, DBIL, PHOS, MG #### [facility] [address] [place] [address] Dr. Brea Causey IG % 0.9 % Critically high 0.0-0.5 [facility] Comment on above: Performed By: #### U CLINT, CMP, LIPID, DBIL, PHOS, MG #### [facility] [address] [place] [address] Dr. Brea Causey LYMPH # 1.0 103/ul Critically low 1.2-3.8 [facility] Comment on above: Performed By: #### U CLINT, CMP, LIPID, DBIL, PHOS, MG #### [facility] [address] [address] [address] Brea Causey Lymphocytes/100 WBC (Bld) 16.4 % Critically low 20.5-60.0 [facility] Comment on above: Performed By: #### U CLINT, CMP, LIPID, DBIL, PHOS, MG #### [facility] [address] [address] [address] Brea Causey MANUAL DIFF REQ NO Normal [facility] Comment on above: Performed By: #### U CLINT, CMP, LIPID, DBIL, PHOS, MG #### [facility] [address] [place] [address] Dr. Brea Causey MCH (RBC) [Entitic mass] 29.0 pg Normal 25.9-34.0 [facility] Comment on above: Performed By: #### U CLINT, CMP, LIPID, DBIL, PHOS, MG #### [facility] [address] [address] [address] Brea Causey MCHC (RBC) [Mass/Vol] 33.5 g/dL Normal 29.9-35.2 [facility] Comment on above: Performed By: #### U CLINT, CMP, LIPID, DBIL, PHOS, MG #### [facility] [address] [address] [address] Brea Causey MCV (RBC) [Entitic vol] 86.7 fL Normal 80.0-94.0 [facility] Comment on above: Performed By: #### U CLINT, CMP, LIPID, DBIL, PHOS, MG #### [facility] [address] [place] [address] Dr. Brea Causey MONO # 0.7 103/ul Normal 0.3-0.8 [facility] Comment on above: Performed By: #### U CLINT, CMP, LIPID, DBIL, PHOS, MG #### [facility] [address] [place] [address] Dr. Brea Causey Monocytes/100 WBC (Bld) 11.6 % Normal 1.7-12.0 [facility] Comment on above: Performed By: #### U CLINT, CMP, LIPID, DBIL, PHOS, MG #### [facility] [address] [place] [address] Dr. Brea Causey NEUT # 4.0 103/ul Normal 1.4-6.5 [facility] Comment on above: Performed By: #### U CLINT, CMP, LIPID, DBIL, PHOS, MG #### [facility] [address] [place] [address] Dr. Brea Causey Neutrophils/100 WBC (Bld) 68.5 % Normal 43.0-75.0 [facility] Comment on above: Performed By: #### U CLINT, CMP, LIPID, DBIL, PHOS, MG #### [facility] [address] [place] [address] Dr. Brea Causey Platelet mean volume (Bld) [Entitic vol] 9.2 fL Critically low 9.5-13.5 [facility] Comment on above: Performed By: #### U CLINT, CMP, LIPID, DBIL, PHOS, MG #### [facility] [address] [place] [address] Dr. Brea Causey PLT 231 103/ul Normal 150-450 [facility] Comment on above: Performed By: #### U CLINT, CMP, LIPID, DBIL, PHOS, MG #### [facility] [address] [place] [address] Dr. Brea Causey RBC 4.27 106/ul Critically low 4.70-6.10 [facility] Comment on above: Performed By: #### U CLINT, CMP, LIPID, DBIL, PHOS, MG #### [facility] [address] [place] [address] Dr. Brea Causey WBC 5.9 103/ul Normal 4.0-11.0 [facility] Comment on above: Performed By: #### U CLINT, CMP, LIPID, DBIL, PHOS, MG #### [facility] [address] [address] [address] Brea Causey LIPID PROFILEon 04-30-2022 CHOL-HDL RATIO NORM SEE BELOW [facility] Comment on above: Result Comment: 3.3 - 4.4 LOW RISK 4.4 - 7.1 AVERAGE RISK 7.1 - 11.0 MODERATE RISK >11.0 HIGH RISK Performed By: #### U CLINT, CMP, LIPID, DBIL, PHOS, MG #### [facility] [address] [address] [address] Brea Causey Cholesterol [Mass/Vol] 78 mg/dL Normal <=200 Th [facility] Comment on above: Performed By: #### U CLINT, CMP, LIPID, DBIL, PHOS, MG #### [facility] [address] [address] [address] Brea Causey Cholesterol in HDL [Mass/Vol] 41 mg/dL Normal 40-60 [facility] Comment on above: Performed By: #### U CLINT, CMP, LIPID, DBIL, PHOS, MG #### [facility] [address] [address] [address] Brea Causey Cholesterol in LDL [Mass/Vol] 17.8 mg/dL Normal [facility] Comment on above: Performed By: #### U CLINT, CMP, LIPID, DBIL, PHOS, MG #### [facility] [address] [address] [address] Brea Causey Cholesterol.total/Chol esterol in HDL [Mass ratio] 1.9 {ratio} Normal [facility] Comment on above: Performed By: #### U CLINT, CMP, LIPID, DBIL, PHOS, MG #### [facility] [address] [address] [address] Brea Causey HDL NORMAL > or = 60 mg/dl - LO W CARDIOVASCULAR RISK <40 mg/dl - HIGH CARDIOVASCULAR RISK Normal [facility] Comment on above: Performed By: #### U CLINT, CMP, LIPID, DBIL, PHOS, MG #### [facility] [address] [address] [address] Brea Causey LDL CALC NORMAL SEE BELOW Normal [facility] Comment on above: Result Comment: <100 mg/dl OPTIMAL 100 - 129 mg/dl NEAR OR ABOVE OPTIMAL 130 - 159 mg/dl BORDERLINE HIGH 160 - 189 mg/dl HIGH >190 mg/dl VERY HIGH Performed By: #### U CLINT, CMP, LIPID, DBIL, PHOS, MG #### [facility] [address] [address] [address] Brea Causey Triglyceride [Mass/Vol] 96 mg/dL Normal <=150 [facility] Comment on above: Performed By: #### U CLINT, CMP, LIPID, DBIL, PHOS, MG #### [facility] [address] [address] [address] Brea Causey VLDL CALC 19.2 mg/dL Normal [facility] Comment on above: Performed By: #### U CLINT, CMP, LIPID, DBIL, PHOS, MG #### [facility] [address] [address] [address] Brea Causey MAGNESIUMon 04-30-2022 Magnesium [Mass/Vol] 1.7 mg/dL Critically low 1.8-2.4 [facility] Comment on above: Performed By: #### U CLINT, CMP, LIPID, DBIL, PHOS, MG #### [facility] [address] [address] [address] Brea Causey PHOSPHORUSon 04-30-2022 Phosphate [Mass/Vol] 3.6 mg/dL Normal 2.6-4.7 [facility] Comment on above: Performed By: #### U CLINT, CMP, LIPID, DBIL, PHOS, MG #### [facility] [address] [address] [address] Brea Causey PROF 14(COMP METB)on 022 Albumin [Mass/Vol] 4.0 g/dL Normal 3.4-5.0 [facility] Comment on above: Performed By: #### U CLINT, CMP, LIPID, DBIL, PHOS, MG #### [facility] [address] [address] [address] Brea Causey Albumin/Globulin [Mass ratio] 1.3 {ratio} Normal [facility] Comment on above: Performed By: #### U CLINT, CMP, LIPID, DBIL, PHOS, MG #### [facility] [address] [place] [address] Dr. Brea Causey ALP [Catalytic activity/Vol] 196 U/L Critically high 46-116 [facility] Comment on above: Performed By: #### U CLINT, CMP, LIPID, DBIL, PHOS, MG #### [facility] [address] [address] [address] Brea Causey ALT [Catalytic activity/Vol] 21 U/L Normal 16-63 [facility] Comment on above: Performed By: #### U CLINT, CMP, LIPID, DBIL, PHOS, MG #### [facility] [address] [place] [address] Dr. Brea Causey Anion gap [Moles/Vol] 10.5 mmol/L Normal [facility] Comment on above: Performed By: #### U CLINT, CMP, LIPID, DBIL, PHOS, MG #### [facility] [address] [place] [address] Dr. Brea Causey AST [Catalytic activity/Vol] 16 U/L Normal 15-37 [facility] Comment on above: Performed By: #### U CLINT, CMP, LIPID, DBIL, PHOS, MG #### [facility] [address] [place] [address] Dr. Brea Causey Bilirubin [Mass/Vol] 0.3 mg/dL Normal 0.2-1.0 [facility] Comment on above: Performed By: #### U CLINT, CMP, LIPID, DBIL, PHOS, MG #### [facility] [address] [address] [address] Brea Causey Calcium [Mass/Vol] 8.6 mg/dL Normal 8.5-10.1 [facility] Comment on above: Performed By: #### U CLINT, CMP, LIPID, DBIL, PHOS, MG #### [facility] [address] [place] [address] Dr. Brea Causey Chloride [Moles/Vol] 95 mmol/L Critically low 98-107 [facility] Comment on above: Performed By: #### U CLINT, CMP, LIPID, DBIL, PHOS, MG #### [facility] [address] [address] [address] Brea Causey CO2 [Moles/Vol] 30.9 mmol/L Normal 21.0-32.[address] [facility] Comment on above: Performed By: #### U CLINT, CMP, LIPID, DBIL, PHOS, MG #### [facility] [address] [address] [address] Brea Causey Creatinine [Mass/Vol] 1.00 mg/dL Normal 0.70-1.30 [facility] Comment on above: Performed By: #### U CLINT, CMP, LIPID, DBIL, PHOS, MG #### [facility] [address] [place] [address] Dr. Brea Causey EGFR-AF BULGARIAN >60 Normal >=[address] [facility] Comment on above: Performed By: #### U CLINT, CMP, LIPID, DBIL, PHOS, MG #### [facility] [address] [place] [address] Dr. Brea Causey EGFR-NON AF BULGARIAN >60 Normal >=60 [facility] Comment on above: Performed By: #### U CLINT, CMP, LIPID, DBIL, PHOS, MG #### [facility] [address] [address] [address] Brea Causey Globulin (S) [Mass/Vol] 3.2 g/dL Normal [facility] Comment on above: Performed By: #### U CLINT, CMP, LIPID, DBIL, PHOS, MG #### [facility] [address] [address] [address] Brea Causey Glucose [Mass/Vol] 160 mg/dL Critically high 74-106 T [facility] Comment on above: Performed By: #### U CLINT, CMP, LIPID, DBIL, PHOS, MG #### [facility] [address] [address] [address] Brea Causey Potassium [Moles/Vol] 5.4 mmol/L Critically high 3.5-5.1 [facility] Comment on above: Performed By: #### U CLINT, CMP, LIPID, DBIL, PHOS, MG #### [facility] [address] [address] [address] Brea Causey Protein [Mass/Vol] 7.2 g/dL Normal 6.4-8.2 [facility] Comment on above: Performed By: #### U CLINT, CMP, LIPID, DBIL, PHOS, MG #### [facility] [address] [address] [address] Brea Causey Sodium [Moles/Vol] 131 mmol/L Critically low 136-145 Th [facility] Comment on above: Performed By: #### U CLINT, CMP, LIPID, DBIL, PHOS, MG #### [facility] [address] [place] [address] Dr. Brea Causey Urea nitrogen [Mass/Vol] 11.0 mg/dL Normal 7.0-18.0 [facility] Comment on above: Performed By: #### U CLINT, CMP, LIPID, DBIL, PHOS, MG #### [facility] [address] [address] [address] Brea Causey Urea nitrogen/Creatinine [Mass ratio] 11.0 mg/mg Normal [facility] Comment on above: Performed By: #### U CLINT, CMP, LIPID, DBIL, PHOS, MG #### [facility] [address] [place] [address] Dr. Brea Causey URIC ACID SERUMon 04-30-2022 Urate [Mass/Vol] 5.9 mg/dL Normal 3.5-7.[address] [facility] Comment on above: Performed By: #### U CILNT, CMP, LIPID, DBIL, PHOS, MG #### [facility] [address] [place] [address] Dr. Brea Causey FK506 (TACROLIMUS) WHOLE BLO ODon 04-06-2022 Tacrolimus (FK506), Blood 3.0 ng/mL Normal 2.0-20.0 [facility] Comment on above: Result Comment: Trou gh (immediately following transplant) 15.0 . Trough (steady state, 2 weeks or more after transplant): 3.0 - 8.0 . Performed by LC-MS/MS technology. Performed By: #### U CLINT, CMP, LIPID, DBIL, PHOS, MG #### [facility] [address] [place] [address] Dr. Brea Causey BILIRUBIN CONJUGATED (DIRECT )on 04-03-2022 BILI, CONJUGATED 0.1 mg/dL Normal 0.0-0.[address] [facility] Comment on above: Performed By: #### U CLINT, CMP, LIPID, DBIL, PHOS, MG #### [facility] [address] [place] [address] Dr. Brea Causey CBC AUTO DIFFon 04-03-2022 BASO # 0.0 103/ul Normal 0.0-0.1 [facility] Comment on above: Performed By: #### U CLINT, CMP, LIPID, DBIL, PHOS, MG #### [facility] [address] [place] [address] Dr. Brea Causey Basophils/100 WBC (Bld) 0.5 % Normal 0.2-2.0 [facility] Comment on above: Performed By: #### U CLINT, CMP, LIPID, DBIL, PHOS, MG #### [facility] [address] [place] [address] Dr. Brea Causey EO # 0.1 103/ul Normal 0.0-0.7 [facility] Comment on above: Performed By: #### U CLINT, CMP, LIPID, DBIL, PHOS, MG #### [facility] [address] [place] [address] Dr. Brea Causey Eosinophils/100 WBC (Bld) 2.5 % Normal 0.9-7.0 [facility] Comment on above: Performed By: #### U CLINT, CMP, LIPID, DBIL, PHOS, MG #### [facility] [address] [place] [address] Dr. Brea Causey Erythrocyte distribution width (RBC) [Ratio] 13.3 % Normal 11.0-15.0 [facility] Comment on above: Performed By: #### U CLINT, CMP, LIPID, DBIL, PHOS, MG #### [facility] [address] [address] [address] Brea Causey Hematocrit (Bld) [Volume fraction] 36.4 % Critically low 42.0-54.0 [facility] Comment on above: Performed By: #### U CLINT, CMP, LIPID, DBIL, PHOS, MG #### [facility] [address] [place] [address] Dr. Brea Causey Hemoglobin (Bld) [Mass/Vol] 12.3 g/dL Critically low 14.0-18.0 [facility] Comment on above: Performed By: #### U CLINT, CMP, LIPID, DBIL, PHOS, MG #### [facility] [address] [place] [address] Dr. Brea Causey IG # 0.03 10e3/ul Normal 0.00-0.03 [facility] Comment on above: Performed By: #### U CLINT, CMP, LIPID, DBIL, PHOS, MG #### [facility] [address] [place] [address] Dr. Brea Causey IG % 0.5 % Normal 0.0-0.5 [facility] Comment on above: Performed By: #### U CLINT, CMP, LIPID, DBIL, PHOS, MG #### [facility] [address] [place] [address] Dr. Brea Causey LYMPH # 0.9 103/ul Critically low 1.2-3.8 [facility] Comment on above: Performed By: #### U CLINT, CMP, LIPID, DBIL, PHOS, MG #### [facility] [address] [place] [address] Dr. Brea Causey Lymphocytes/100 WBC (Bld) 16.9 % Critically low 20.5-60.0 [facility] Comment on above: Performed By: #### U CLINT, CMP, LIPID, DBIL, PHOS, MG #### [facility] [address] [place] [address] Dr. Brea Causey MANUAL DIFF REQ NO Normal [facility] Comment on above: Performed By: #### U CLINT, CMP, LIPID, DBIL, PHOS, MG #### [facility] [address] [place] [address] Dr. Brea Causey MCH (RBC) [Entitic mass] 29.3 pg Normal 25.9-34.0 [facility] Comment on above: Performed By: #### U CLINT, CMP, LIPID, DBIL, PHOS, MG #### [facility] [address] [place] [address] Dr. Brea Causey MCHC (RBC) [Mass/Vol] 33.8 g/dL Normal 29.9-35.2 [facility] Comment on above: Performed By: #### U CLINT, CMP, LIPID, DBIL, PHOS, MG #### [facility] [address] [place] [address] Dr. Brea Causey MCV (RBC) [Entitic vol] 86.7 fL Normal 80.0-94.0 [facility] Comment on above: Performed By: #### U CLINT, CMP, LIPID, DBIL, PHOS, MG #### [facility] [address] [place] [address] Dr. Brea Causey MONO # 0.6 103/ul Normal 0.3-0.8 [facility] Comment on above: Performed By: #### U CLINT, CMP, LIPID, DBIL, PHOS, MG #### [facility] [address] [place] [address] Dr. Brea Causey Monocytes/100 WBC (Bld) 10.1 % Normal 1.7-12.0 [facility] Comment on above: Performed By: #### U CLINT, CMP, LIPID, DBIL, PHOS, MG #### [facility] [address] [place] [address] Dr. Brea Causey NEUT # 3.9 103/ul Normal 1.4-6.5 [facility] Comment on above: Performed By: #### U CLINT, CMP, LIPID, DBIL, PHOS, MG #### [facility] [address] [place] [address] Dr. Brea Causey Neutrophils/100 WBC (Bld) 69.5 % Normal 43.0-75.0 [facility] Comment on above: Performed By: #### U CLINT, CMP, LIPID, DBIL, PHOS, MG #### [facility] [address] [address] [address] Brea Causey Platelet mean volume (Bld) [Entitic vol] 9.2 fL Critically low 9.5-13.5 [facility] Comment on above: Performed By: #### U CLINT, CMP, LIPID, DBIL, PHOS, MG #### [facility] [address] [address] [address] Brea Causey PLT 228 103/ul Normal 150-450 [facility] Comment on above: Performed By: #### U CLINT, CMP, LIPID, DBIL, PHOS, MG #### [facility] [address] [place] [address] Dr. Brea Causey RBC 4.20 106/ul Critically low 4.70-6.10 [facility] Comment on above: Performed By: #### U CLINT, CMP, LIPID, DBIL, PHOS, MG #### [facility] [address] [address] [address] Brea Causey WBC 5.6 103/ul Normal 4.0-11.0 [facility] Comment on above: Performed By: #### U CLINT, CMP, LIPID, DBIL, PHOS, MG #### [facility] [address] [address] [address] Brea Causey LIPID PROFILEon 04-03-2022 CHOL-HDL RATIO NORM SEE BELOW Normal [facility] Comment on above: Result Comment: 3.3 - 4.4 LOW RISK 4.4 - 7.1 AVERAGE RISK 7.1 - 11.0 MODERATE RISK >11.0 HIGH RISK Performed By: #### U CLINT, CMP, LIPID, DBIL, PHOS, MG #### [facility] [address] [address] [address] Brea Causey Cholesterol [Mass/Vol] 84 mg/dL Normal <=200 Th [facility] Comment on above: Performed By: #### U CLINT, CMP, LIPID, DBIL, PHOS, MG #### [facility] [address] [address] [address] Brea Causey Cholesterol in HDL [Mass/Vol] 45 mg/dL Normal 40-60 [facility] Comment on above: Performed By: #### U CLINT, CMP, LIPID, DBIL, PHOS, MG #### [facility] [address] [address] [address] Brea Causey Cholesterol in LDL [Mass/Vol] 22.8 mg/dL Normal [facility] Comment on above: Performed By: #### U CLINT, CMP, LIPID, DBIL, PHOS, MG #### [facility] [address] [place] [address] Dr. Brea Causey Cholesterol.total/Chol esterol in HDL [Mass ratio] 1.9 {ratio} Normal [facility] Comment on above: Performed By: #### U CLINT, CMP, LIPID, DBIL, PHOS, MG #### [facility] [address] [address] [address] Brea Causey HDL NORMAL > or = 60 mg/dl - LO W CARDIOVASCULAR RISK <40 mg/dl - HIGH CARDIOVASCULAR RISK Normal [facility] Comment on above: Performed By: #### U CLINT, CMP, LIPID, DBIL, PHOS, MG #### [facility] [address] [address] [address] Brea Causey LDL CALC NORMAL SEE BELOW Normal [facility] Comment on above: Result Comment: <100 mg/dl OPTIMAL 100 - 129 mg/dl NEAR OR ABOVE OPTIMAL 130 - 159 mg/dl BORDERLINE HIGH 160 - 189 mg/dl HIGH >190 mg/dl VERY HIGH Performed By: #### U CLINT, CMP, LIPID, DBIL, PHOS, MG #### [facility] [address] [place] [address] Dr. Brea Causey Triglyceride [Mass/Vol] 81 mg/dL Normal <=150 [facility] Comment on above: Performed By: #### U CLINT, CMP, LIPID, DBIL, PHOS, MG #### [facility] [address] [address] [address] Brea Causey VLDL CALC 16.2 mg/dL Normal [facility] Comment on above: Performed By: #### U CLINT, CMP, LIPID, DBIL, PHOS, MG #### [facility] [address] [place] [address] Dr. Brea Causey MAGNESIUMon 04-03-2022 Magnesium [Mass/Vol] 1.6 mg/dL Critically low 1.8-2.4 [facility] Comment on above: Performed By: #### U CLINT, CMP, LIPID, DBIL, PHOS, MG #### [facility] [address] [place] [address] Dr. Brea Causey PHOSPHORUSon 04-03-2022 Phosphate [Mass/Vol] 3.9 mg/dL Normal 2.6-4.7 [facility] Comment on above: Performed By: #### U CLINT, CMP, LIPID, DBIL, PHOS, MG #### [facility] [address] [place] [address] Dr. Brea Causey PROF 14(COMP METB)on 022 Albumin [Mass/Vol] 4.0 g/dL Normal 3.4-5.0 [facility] Comment on above: Performed By: #### U CLINT, CMP, LIPID, DBIL, PHOS, MG #### [facility] [address] [place] [address] Dr. Brea Causey Albumin/Globulin [Mass ratio] 1.2 {ratio} Normal [facility] Comment on above: Performed By: #### U CLINT, CMP, LIPID, DBIL, PHOS, MG #### [facility] [address] [place] [address] Dr. Brea Causey ALP [Catalytic activity/Vol] 196 U/L Critically high 46-116 [facility] Comment on above: Performed By: #### U CLINT, CMP, LIPID, DBIL, PHOS, MG #### [facility] [address] [place] [address] Dr. Brea Causey ALT [Catalytic activity/Vol] 19 U/L Normal 16-63 [facility] Comment on above: Performed By: #### U CLINT, CMP, LIPID, DBIL, PHOS, MG #### [facility] [address] [address] [address] Brea Causey Anion gap [Moles/Vol] 10.2 mmol/L Normal [facility] Comment on above: Performed By: #### U CLINT, CMP, LIPID, DBIL, PHOS, MG #### [facility] [address] [address] [address] Brea Causey AST [Catalytic activity/Vol] 15 U/L Normal 15-37 [facility] Comment on above: Performed By: #### U CLINT, CMP, LIPID, DBIL, PHOS, MG #### [facility] [address] [place] [address] Dr. Brea Causey Bilirubin [Mass/Vol] 0.3 mg/dL Normal 0.2-1.0 [facility] Comment on above: Performed By: #### U CLINT, CMP, LIPID, DBIL, PHOS, MG #### [facility] [address] [place] [address] Dr. Brea Causey Calcium [Mass/Vol] 8.2 mg/dL Critically low 8.5-10.1 [facility] Comment on above: Performed By: #### U CLINT, CMP, LIPID, DBIL, PHOS, MG #### [facility] [address] [place] [address] Dr. Brea Causey Chloride [Moles/Vol] 97 mmol/L Critically low 98-107 [facility] Comment on above: Performed By: #### U CLINT, CMP, LIPID, DBIL, PHOS, MG #### [facility] [address] [place] [address] Dr. Brea Causey CO2 [Moles/Vol] 28.2 mmol/L Normal 21.0-32.[address] [facility] Comment on above: Performed By: #### U CLINT, CMP, LIPID, DBIL, PHOS, MG #### [facility] [address] [place] [address] Dr. Brea Causey Creatinine [Mass/Vol] 1.00 mg/dL Normal 0.70-1.30 [facility] Comment on above: Performed By: #### U CLINT, CMP, LIPID, DBIL, PHOS, MG #### [facility] [address] [address] [address] Brea Causey EGFR-AF BULGARIAN >60 Normal >=[address] [facility] Comment on above: Performed By: #### U CLINT, CMP, LIPID, DBIL, PHOS, MG #### [facility] [address] [place] [address] Dr. Brea Causey EGFR-NON AF BULGARIAN >60 Normal >=60 [facility] Comment on above: Performed By: #### U CLINT, CMP, LIPID, DBIL, PHOS, MG #### [facility] [address] [place] [address] Dr. Brea Causey Globulin (S) [Mass/Vol] 3.3 g/dL Normal [facility] Comment on above: Performed By: #### U CLINT, CMP, LIPID, DBIL, PHOS, MG #### [facility] [address] [place] [address] Dr. Brea Causey Glucose [Mass/Vol] 164 mg/dL Critically high 74-106 [facility] Comment on above: Performed By: #### U CLINT, CMP, LIPID, DBIL, PHOS, MG #### [facility] [address] [place] [address] Dr. Brea Causey Potassium [Moles/Vol] 4.4 mmol/L Normal 3.5-5.1 [facility] Comment on above: Performed By: #### U CLINT, CMP, LIPID, DBIL, PHOS, MG #### [facility] [address] [address] [address] Brea Causey Protein [Mass/Vol] 7.3 g/dL Normal 6.4-8.2 [facility] Comment on above: Performed By: #### U CLINT, CMP, LIPID, DBIL, PHOS, MG #### [facility] [address] [place] [address] Dr. Brea Causey Sodium [Moles/Vol] 131 mmol/L Critically low 136-145 Th [facility] Comment on above: Performed By: #### U CLINT, CMP, LIPID, DBIL, PHOS, MG #### [facility] [address] [address] [address] Brea Causey Urea nitrogen [Mass/Vol] 13.0 mg/dL Normal 7.0-18.0 [facility] Comment on above: Performed By: #### U CLINT, CMP, LIPID, DBIL, PHOS, MG #### [facility] [address] [address] [address] Brea Causey Urea nitrogen/Creatinine [Mass ratio] 13.0 mg/mg Normal [facility] Comment on above: Performed By: #### U CLINT, CMP, LIPID, DBIL, PHOS, MG #### [facility] [address] [place] [address] Dr. Brea Causey URIC ACID SERUMon 04-03-2022 Urate [Mass/Vol] 6.1 mg/dL Normal 3.5-7.[address] [facility] Comment on above: Performed By: #### U CLINT, CMP, LIPID, DBIL, PHOS, MG #### [facility] [address] [place] [address] Dr. Brea Causey TESTOSTERONE, FREE,DIRECT, T OTAn 03-13-2022 Free Testosterone(Direct) 6.9 pg/mL Normal 6.6-18.1 [facility] Comment on above: Result Comment: Perf ormed at: BN Performed By: #### T ESTFRD #### [facility] [address] [place] [address] Dr. Brea Causey Testosterone [Mass/Vol] 428 ng/dL Normal 264-916 [facility] Comment on above: Result Comment: Adul t male reference interval is based on a population of healthy nonobese males (BMI <30) between 19 and 39 years old. daniel Harris.al. JCEM 2017,102;8191-8151. PMID: [id number]. Performed at: CB Performed By: #### T ESTFRD #### [facility] [address] [place] [address] Dr. Brea Causey BK VIRUS PCR QUANTon 022 BKV DNA QUANT PCR PLASMA Negative Normal Negative [facility] Comment on above: Result Comment: No B K DNA detected. . The linear range of the assay is 22 - 100,000,000 IU/mL. Performed By: #### B KVIRUS #### [facility] [address] [place] [address] Dr. Brea Causey Log10 BKV DNA Plasma Normal [facility] Comment on above: Performed By: #### B KVIRUS #### [facility] [address] [place] [address] Dr. Brea Causey FK506 (TACROLIMUS) WHOLE BLO ODon 03-11-2022 Tacrolimus (FK506), Blood 4.7 ng/mL Normal 2.0-20.0 [facility] Comment on above: Result Comment: Trou gh (immediately following transplant) 15.0 . Trough (steady state, 2 weeks or more after transplant): 3.0 - 8.0 . Performed by LC-MS/MS technology. Performed By: #### C BC #### [facility] [address] [place] [address] Dr. Brea Causey BILIRUBIN CONJUGATED (DIRECT )on 03-08-2022 BILI, CONJUGATED 0.1 mg/dL Normal 0.0-0.[address] [facility] Comment on above: Performed By: #### U CLINT, CMP, LIPID, DBIL, PHOS, MG #### [facility] [address] [place] [address] Dr. Brea Causey CBC AUTO DIFFon 03-08-2022 BASO # 0.0 103/ul Normal 0.0-0.1 [facility] Comment on above: Performed By: #### U CLINT, CMP, LIPID, DBIL, PHOS, MG #### [facility] [address] [place] [address] Dr. Brea Causey Basophils/100 WBC (Bld) 0.7 % Normal 0.2-2.0 [facility] Comment on above: Performed By: #### U CLINT, CMP, LIPID, DBIL, PHOS, MG #### [facility] [address] [place] [address] Dr. Brea Causey EO # 0.2 103/ul Normal 0.0-0.7 [facility] Comment on above: Performed By: #### U CLINT, CMP, LIPID, DBIL, PHOS, MG #### [facility] [address] [address] [address] Brea Causey Eosinophils/100 WBC (Bld) 3.1 % Normal 0.9-7.0 [facility] Comment on above: Performed By: #### U CLINT, CMP, LIPID, DBIL, PHOS, MG #### [facility] [address] [place] [address] Dr. Brea Causey Erythrocyte distribution width (RBC) [Ratio] 13.3 % Normal 11.0-15.0 [facility] Comment on above: Performed By: #### U CLINT, CMP, LIPID, DBIL, PHOS, MG #### [facility] [address] [place] [address] Dr. Brea Causey Hematocrit (Bld) [Volume fraction] 35.7 % Critically low 42.0-54.0 [facility] Comment on above: Performed By: #### U CLINT, CMP, LIPID, DBIL, PHOS, MG #### [facility] [address] [place] [address] Dr. Brea Causey Hemoglobin (Bld) [Mass/Vol] 12.0 g/dL Critically low 14.0-18.0 [facility] Comment on above: Performed By: #### U CLINT, CMP, LIPID, DBIL, PHOS, MG #### [facility] [address] [place] [address] Dr. Brea Causey IG # 0.06 10e3/ul Critically high 0.00-0.03 [facility] Comment on above: Performed By: #### U CLINT, CMP, LIPID, DBIL, PHOS, MG #### [facility] [address] [place] [address] Dr. Brea Causey IG % 1.0 % Critically high 0.0-0.5 [facility] Comment on above: Performed By: #### U CLINT, CMP, LIPID, DBIL, PHOS, MG #### [facility] [address] [address] [address] Brea Causey LYMPH # 0.8 103/ul Critically low 1.2-3.8 [facility] Comment on above: Performed By: #### U CLINT, CMP, LIPID, DBIL, PHOS, MG #### [facility] [address] [place] [address] Dr. Brea Causey Lymphocytes/100 WBC (Bld) 12.9 % Critically low 20.5-60.0 [facility] Comment on above: Performed By: #### U CLINT, CMP, LIPID, DBIL, PHOS, MG #### [facility] [address] [address] [address] Brea Causey MANUAL DIFF REQ NO Normal [facility] Comment on above: Performed By: #### U CLINT, CMP, LIPID, DBIL, PHOS, MG #### [facility] [address] [place] [address] Dr. Brea Causey MCH (RBC) [Entitic mass] 29.5 pg Normal 25.9-34.0 [facility] Comment on above: Performed By: #### U CLINT, CMP, LIPID, DBIL, PHOS, MG #### [facility] [address] [place] [address] Dr. Brea Causey MCHC (RBC) [Mass/Vol] 33.6 g/dL Normal 29.9-35.2 [facility] Comment on above: Performed By: #### U CLINT, CMP, LIPID, DBIL, PHOS, MG #### [facility] [address] [place] [address] Dr. Brea Causey MCV (RBC) [Entitic vol] 87.7 fL Normal 80.0-94.0 [facility] Comment on above: Performed By: #### U CLINT, CMP, LIPID, DBIL, PHOS, MG #### [facility] [address] [place] [address] Dr. Brea Causey MONO # 0.6 103/ul Normal 0.3-0.8 [facility] Comment on above: Performed By: #### U CLINT, CMP, LIPID, DBIL, PHOS, MG #### [facility] [address] [address] [address] Brea Causey Monocytes/100 WBC (Bld) 9.8 % Normal 1.7-12.0 [facility] Comment on above: Performed By: #### U CLINT, CMP, LIPID, DBIL, PHOS, MG #### [facility] [address] [address] [address] Brea Causey NEUT # 4.4 103/ul Normal 1.4-6.5 [facility] Comment on above: Performed By: #### U CLINT, CMP, LIPID, DBIL, PHOS, MG #### [facility] [address] [place] [address] Dr. Brea Causey Neutrophils/100 WBC (Bld) 72.5 % Normal 43.0-75.0 [facility] Comment on above: Performed By: #### U CLINT, CMP, LIPID, DBIL, PHOS, MG #### [facility] [address] [place] [address] Dr. Brea Causey Platelet mean volume (Bld) [Entitic vol] 9.6 fL Normal 9.5-13.5 [facility] Comment on above: Performed By: #### U CLINT, CMP, LIPID, DBIL, PHOS, MG #### [facility] [address] [address] [address] Brea Causey PLT 265 103/ul Normal 150-450 [facility] Comment on above: Performed By: #### U CLINT, CMP, LIPID, DBIL, PHOS, MG #### [facility] [address] [place] [address] Dr. Brea Causey RBC 4.07 106/ul Critically low 4.70-6.10 [facility] Comment on above: Performed By: #### U CLINT, CMP, LIPID, DBIL, PHOS, MG #### [facility] [address] [address] [address] Brea Causey WBC 6.0 103/ul Normal 4.0-11.0 [facility] Comment on above: Performed By: #### U CLINT, CMP, LIPID, DBIL, PHOS, MG #### [facility] [address] [address] [address] Brea Causey GLYCOHEMOGLOBIN A1Con 2021 ADA RECOMMENDATION SEE BELOW Normal [facility] Comment on above: Result Comment: ADA RECOMMENDED LIMIT 4.0 - 6.0 ADA THERAPEUTIC TARGET < 7.0 ACTION SUGGESTED > 7.0 Performed By: #### U CLINT, CMP, LIPID, DBIL, PHOS, MG #### [facility] [address] [address] [address] Brea Causey Glucose [Mass/Vol] 169 mg/dL Normal [facility] Comment on above: Performed By: #### U CLINT, CMP, LIPID, DBIL, PHOS, MG #### [facility] [address] [address] [address] Brea Causey HbA1c (Bld) [Mass fraction] 7.5 % Critically high 4.5-6.2 [facility] Comment on above: Performed By: #### U CLINT, CMP, LIPID, DBIL, PHOS, MG #### [facility] [address] [address] [address] Brea Causey LIPID PROFILEon 03-08-2022 CHOL-HDL RATIO NORM SEE BELOW [facility] Comment on above: Result Comment: 3.3 - 4.4 LOW RISK 4.4 - 7.1 AVERAGE RISK 7.1 - 11.0 MODERATE RISK >11.0 HIGH RISK Performed By: #### U CLINT, CMP, LIPID, DBIL, PHOS, MG #### [facility] [address] [address] [address] Brea Causey Cholesterol [Mass/Vol] 77 mg/dL Normal <=200 [facility] Comment on above: Performed By: #### U CLINT, CMP, LIPID, DBIL, PHOS, MG #### [facility] [address] [address] [address] Brea Causey Cholesterol in HDL [Mass/Vol] 49 mg/dL Normal 40-60 [facility] Comment on above: Performed By: #### U CLINT, CMP, LIPID, DBIL, PHOS, MG #### [facility] [address] [address] [address] Brea Causey Cholesterol in LDL [Mass/Vol] 20.4 mg/dL Normal [facility] Comment on above: Performed By: #### U CLINT, CMP, LIPID, DBIL, PHOS, MG #### [facility] [address] [address] [address] Brea Causey Cholesterol.total/Chol esterol in HDL [Mass ratio] 1.6 {ratio} Normal [facility] Comment on above: Performed By: #### U CLINT, CMP, LIPID, DBIL, PHOS, MG #### [facility] [address] [address] [address] Brea Causey HDL NORMAL > or = 60 mg/dl - LO W CARDIOVASCULAR RISK <40 mg/dl - HIGH CARDIOVASCULAR RISK Normal [facility] Comment on above: Performed By: #### U CLINT, CMP, LIPID, DBIL, PHOS, MG #### [facility] [address] [place] [address] Dr. Brea Causey LDL CALC NORMAL SEE BELOW Normal [facility] Comment on above: Result Comment: <100 mg/dl OPTIMAL 100 - 129 mg/dl NEAR OR ABOVE OPTIMAL 130 - 159 mg/dl BORDERLINE HIGH 160 - 189 mg/dl HIGH >190 mg/dl VERY HIGH Performed By: #### U CLINT, CMP, LIPID, DBIL, PHOS, MG #### [facility] [address] [address] [address] Brea Causey Triglyceride [Mass/Vol] 38 mg/dL Normal <=150 [facility] Comment on above: Performed By: #### U CLINT, CMP, LIPID, DBIL, PHOS, MG #### [facility] [address] [address] [address] Brea Causey VLDL CALC 7.6 mg/dL Normal [facility] Comment on above: Performed By: #### U CLINT, CMP, LIPID, DBIL, PHOS, MG #### [facility] [address] [address] [address] Brea Causey MAGNESIUMon 03-08-2022 Magnesium [Mass/Vol] 1.5 mg/dL Critically low 1.8-2.4 [facility] Comment on above: Performed By: #### U CLINT, CMP, LIPID, DBIL, PHOS, MG #### [facility] [address] [place] [address] Dr. Brea Causey PHOSPHORUSon 03-08-2022 Phosphate [Mass/Vol] 3.6 mg/dL Normal 2.6-4.7 [facility] Comment on above: Performed By: #### U CLINT, CMP, LIPID, DBIL, PHOS, MG #### [facility] [address] [place] [address] Dr. Brea Causey PROF 14(COMP METB)on 022 Albumin [Mass/Vol] 4.0 g/dL Normal 3.4-5.0 [facility] Comment on above: Performed By: #### U CLINT, CMP, LIPID, DBIL, PHOS, MG #### [facility] [address] [place] [address] Dr. Brea Causey Albumin/Globulin [Mass ratio] 1.2 {ratio} Normal [facility] Comment on above: Performed By: #### U CLINT, CMP, LIPID, DBIL, PHOS, MG #### [facility] [address] [place] [address] Dr. Brea Causye ALP [Catalytic activity/Vol] 176 U/L Critically high 46-116 [facility] Comment on above: Performed By: #### U CLINT, CMP, LIPID, DBIL, PHOS, MG #### [facility] [address] [place] [address] Dr. Brea Causey ALT [Catalytic activity/Vol] 21 U/L Normal 16-63 [facility] Comment on above: Performed By: #### U CLINT, CMP, LIPID, DBIL, PHOS, MG #### [facility] [address] [place] [address] Dr. Brea Causey Anion gap [Moles/Vol] 12.0 mmol/L Normal [facility] Comment on above: Performed By: #### U CLINT, CMP, LIPID, DBIL, PHOS, MG #### [facility] [address] [address] [address] Brea Causey AST [Catalytic activity/Vol] 13 U/L Critically low 15-37 [facility] Comment on above: Performed By: #### U CLINT, CMP, LIPID, DBIL, PHOS, MG #### [facility] [address] [address] [address] Brea Causey Bilirubin [Mass/Vol] 0.3 mg/dL Normal 0.2-1.0 [facility] Comment on above: Performed By: #### U CLINT, CMP, LIPID, DBIL, PHOS, MG #### [facility] [address] [place] [address] Dr. Brea Causey Calcium [Mass/Vol] 7.9 mg/dL Critically low 8.5-10.1 [facility] Comment on above: Performed By: #### U CLINT, CMP, LIPID, DBIL, PHOS, MG #### [facility] [address] [place] [address] Dr. Brea Causey Chloride [Moles/Vol] 100 mmol/L Normal 98-107 [facility] Comment on above: Performed By: #### U CLINT, CMP, LIPID, DBIL, PHOS, MG #### [facility] [address] [place] [address] Dr. Brea Causey CO2 [Moles/Vol] 27.3 mmol/L Normal 21.0-32.[address] [facility] Comment on above: Performed By: #### U CLINT, CMP, LIPID, DBIL, PHOS, MG #### [facility] [address] [address] [address] Brea Causey Creatinine [Mass/Vol] 1.00 mg/dL Normal 0.70-1.30 [facility] Comment on above: Performed By: #### U CLINT, CMP, LIPID, DBIL, PHOS, MG #### [facility] [address] [place] [address] Dr. Brea Causey EGFR-AF BULGARIAN >60 Normal >=[address] [facility] Comment on above: Performed By: #### U CLINT, CMP, LIPID, DBIL, PHOS, MG #### [facility] [address] [address] [address] Brea Causey EGFR-NON AF BULGARIAN >60 Normal >=60 [facility] Comment on above: Performed By: #### U CLINT, CMP, LIPID, DBIL, PHOS, MG #### [facility] [address] [address] [address] Brea Causey Globulin (S) [Mass/Vol] 3.3 g/dL Normal [facility] Comment on above: Performed By: #### U CLINT, CMP, LIPID, DBIL, PHOS, MG #### [facility] [address] [place] [address] Dr. Brea Causey Glucose [Mass/Vol] 155 mg/dL Critically high 74-106 [facility] Comment on above: Performed By: #### U CLINT, CMP, LIPID, DBIL, PHOS, MG #### [facility] [address] [address] [address] Brea Causey Potassium [Moles/Vol] 4.3 mmol/L Normal 3.5-5.1 [facility] Comment on above: Performed By: #### U CLINT, CMP, LIPID, DBIL, PHOS, MG #### [facility] [address] [place] [address] Dr. Brea Causey Protein [Mass/Vol] 7.3 g/dL Normal 6.4-8.2 [facility] Comment on above: Performed By: #### U CLINT, CMP, LIPID, DBIL, PHOS, MG #### [facility] [address] [address] [address] Brea Causey Sodium [Moles/Vol] 135 mmol/L Critically low 136-145 Th [facility] Comment on above: Performed By: #### U CLINT, CMP, LIPID, DBIL, PHOS, MG #### [facility] [address] [place] [address] Dr. Brea Causey Urea nitrogen [Mass/Vol] 13.0 mg/dL Normal 7.0-18.0 [facility] Comment on above: Performed By: #### U CLINT, CMP, LIPID, DBIL, PHOS, MG #### [facility] [address] [address] [address] Brea Causey Urea nitrogen/Creatinine [Mass ratio] 13.0 mg/mg Normal [facility] Comment on above: Performed By: #### U CLINT, CMP, LIPID, DBIL, PHOS, MG #### [facility] [address] [address] [address] Brea Causey URIC ACID SERUMon 03-08-2022 Urate [Mass/Vol] 7.3 mg/dL Critically high 3.5-7.2 [facility] Comment on above: Performed By: #### U CLINT, CMP, LIPID, DBIL, PHOS, MG #### [facility] [address] [address] [address] Brea Snyder 03-05-2022 L - -------- Specimen: [id number] Received: 03/05/22 Status: CHERI Irene Num: [id number] Spec Type: Surgical Subm Dr: Tj Wells MD Tissues: A Colon Biopsy (COLON BX) B Colon Biopsy (DIVERTICULAR COLITIS) Procedures: HE Stain/4, Gross/Micro L4/2 -------- Age/ Patient Sex Location Account Attending Physician -------- Roger Kerr 71/M [id number] Tj Wells MD -------- SPEC NUM: [id number] RECD: 03/05/22 STATUS: CHERI BONILLA NUM: [id number] ESTEFANI: 03/05/22 DR: Tj Wells MD ENTERED: [...] in one cassette labeled B1. -------- Specimen: [id number] Received: 03/05/22 Status: DEMETRIOSherron Bonilla Num: [id number] Spec Type: Surgical Subm Dr: Tj Wells MD Tissues: A Colon Biopsy (COLON BX) B Colon Biopsy (DIVERTICULAR COLITIS) Procedures: HE Stain/4, Gross/Micro L4/2 -------- Patient: Roger Kerr [id number] (Continued) -------- Specimen: [id number] Received: 03/05/22 (Continued) Signed (signature on file) Kalpana Shaw MD 03/07/22 1025 -------- Specimen: [id number] Received: 03/05/22 Status: DEMETRIOSherron Req Num: [id number] Spec Type: Surgical Subm Dr: Tj Wells MD Tissues: A Colon Biopsy (COLON BX) B Colon Biopsy (DIVERTICULAR COLITIS) Procedures: HE Stain/4, Gross/Micro L4/2 -------- Patient: Roger Kerr [id number] (Continued) -------- Specimen: [id number] Received: 03/05/22 (Continued) Microscopic Description A. Two glass slides with H E stained material have been examined. The microscopic findings support the above pathologic diagnosis. B. Two glass slides with H E stained material have been examined. The microscopic findings support the above pathologic diagnosis. CPT Codes 56942?2 -------- -------- Specimen: [id number] Received: 03/05/22 Status: CHERI Bonilla Num: [id number] Spec Type: Surgical Subm Dr: Tj Wells MD Tissues: A Colon Biopsy (COLON BX) B Colon Biopsy (DIVERTICULAR COLITIS) Procedures: HE Stain/4, Gross/Micro L4/2 -------- Patient: Roger Kerr [id number] (Continued) -------- Signed (signature on file) Kalpana Shaw MD 03/07/22 1025 [facility] COVID-19 Antigenon 2 COVID-19 Antigen Healthcare [...] developed and its performance characteristic determined by [employer] and validated at [facility]. This test has not been FDA [...] for SARS Antigen by ROCHELLE PERFORMED BY: [place] [address] PATHOLOGIST [employer] FEI WOODRUFF M.D. Normal [facility] Comment on above: Performed By: #### C OVID-19 MARQUISE, SOFIANEG #### [facility] [address] [place] [address] COVID-19 SOFIAOrdered By: Sheila Wells on 03-01-2022 SARS-CoV+SARS-CoV-2 (COVID-19) Ag IA.rapid Ql (Resp) Negative Negative [facility] Comment on above: This is a duplicate Marquise SARS Antigen (ROCHELLE) result to be used for statistical tracking purpose only. No Panel InformationOrdered By: Tj Wells on 03-01-2022 SARS Antigen (LFIA) [facility] Marquise Ag Negativeon 03-01-20 22 Marquise Ag Negative Negative Normal Negative [facility] Comment on above: Result Comment: This is a duplicate Marquise SARS Antigen (ROCHELLE) result to be used for statistical tracking purpose only. PERFORMED BY: [address] [id number] PATHOLOGIST [employer] FEI WOODRUFF M.D. Performed By: #### C OVID-19 MARQUISE, SOFIANEG #### [facility] [address] [place], [place] [id number] [facility] FK506 (TACROLIMUS) WHOLE BLO ODon 02-05-2022 Tacrolimus (FK506), Blood 5.4 ng/mL Normal 2.0-20.0 [facility] Comment on above: Result Comment: Trou gh (immediately following transplant) 15.0 . Trough (steady state, 2 weeks or more after transplant): 3.0 - 8.0 . Performed by LC-MS/MS technology. Performed By: #### U CLINT, CMP, LIPID, DBIL, PHOS, MG #### [facility] [address] [place] [address] Dr. Brea Causey BILIRUBIN CONJUGATED (DIRECT )on 02-01-2022 BILI, CONJUGATED 0.1 mg/dL Normal 0.0-0.[address] [facility] Comment on above: Performed By: #### C BC #### [facility] [address] [place] [address] Dr. Brea Causey CBC AUTO DIFFon 02-01-2022 BASO # 0.0 103/ul Normal 0.0-0.1 [facility] Comment on above: Performed By: #### B KVIRUS #### [facility] [address] [place] [address] Dr. Brea Causey Basophils/100 WBC (Bld) 0.6 % Normal 0.2-2.0 [facility] Comment on above: Performed By: #### B KVIRUS #### [facility] [address] [place] [address] Dr. Brea Causey EO # 0.2 103/ul Normal 0.0-0.7 [facility] Comment on above: Performed By: #### B KVIRUS #### [facility] [address] [place] [address] Dr. Brea Causey Eosinophils/100 WBC (Bld) 3.5 % Normal 0.9-7.0 [facility] Comment on above: Performed By: #### B KVIRUS #### [facility] [address] [place] [address] Dr. Brea Causey Erythrocyte distribution width (RBC) [Ratio] 13.0 % Normal 11.0-15.0 [facility] Comment on above: Performed By: #### B KVIRUS #### [facility] [address] [place] [address] Dr. Brea Causey Hematocrit (Bld) [Volume fraction] 36.9 % Critically low 42.0-54.0 [facility] Comment on above: Performed By: #### B KVIRUS #### [facility] [address] [place] [address] Dr. Brea Causey Hemoglobin (Bld) [Mass/Vol] 12.0 g/dL Critically low 14.0-18.0 [facility] Comment on above: Performed By: #### B KVIRUS #### [facility] [address] [place] [address] Dr. Brea Causey IG # 0.07 10e3/ul Critically high 0.00-0.03 [facility] Comment on above: Performed By: #### B KVIRUS #### [facility] [address] [place] [address] Dr. Brea Causey IG % 1.0 % Critically high 0.0-0.5 [facility] Comment on above: Performed By: #### B KVIRUS #### [facility] [address] [place] [address] Dr. Brea Causey LYMPH # 1.0 103/ul Critically low 1.2-3.8 [facility] Comment on above: Performed By: #### B KVIRUS #### [facility] [address] [place] [address] Dr. Brea Causey Lymphocytes/100 WBC (Bld) 14.2 % Critically low 20.5-60.0 [facility] Comment on above: Performed By: #### B KVIRUS #### [facility] [address] [place] [address] Dr. Brea Causey MANUAL DIFF REQ NO Normal [facility] Comment on above: Performed By: #### B KVIRUS #### [facility] [address] [place] [address] Dr. Brea Causey MCH (RBC) [Entitic mass] 29.1 pg Normal 25.9-34.0 [facility] Comment on above: Performed By: #### B KVIRUS #### [facility] [address] [place] [address] Dr. Brea Causey MCHC (RBC) [Mass/Vol] 32.5 g/dL Normal 29.9-35.2 [facility] Comment on above: Performed By: #### B KVIRUS #### [facility] [address] [place] [address] Dr. Brea Causey MCV (RBC) [Entitic vol] 89.6 fL Normal 80.0-94.0 [facility] Comment on above: Performed By: #### B KVIRUS #### [facility] [address] [place] [address] Dr. Brea Causey MONO # 0.7 103/ul Normal 0.3-0.8 [facility] Comment on above: Performed By: #### B KVIRUS #### [facility] [address] [place] [address] Dr. Brea Causey Monocytes/100 WBC (Bld) 9.9 % Normal 1.7-12.0 [facility] Comment on above: Performed By: #### B KVIRUS #### [facility] [address] [place] [address] Dr. Brea Causey NEUT # 4.9 103/ul Normal 1.4-6.5 [facility] Comment on above: Performed By: #### B KVIRUS #### [facility] [address] [place] [address] Dr. Brea Causey Neutrophils/100 WBC (Bld) 70.8 % Normal 43.0-75.0 [facility] Comment on above: Performed By: #### B KVIRUS #### [facility] [address] [place] [address] Dr. Brea Causey Platelet mean volume (Bld) [Entitic vol] 9.6 fL Normal 9.5-13.5 [facility] Comment on above: Performed By: #### B KVIRUS #### [facility] [address] [place] [address] Dr. Brea Causey PLT 247 103/ul Normal 150-450 [facility] Comment on above: Performed By: #### B KVIRUS #### [facility] [address] [place] [address] Dr. Brea Causey RBC 4.12 106/ul Critically low 4.70-6.10 [facility] Comment on above: Performed By: #### B KVIRUS #### [facility] [address] [address] [address] Brea Causey WBC 6.9 103/ul Normal 4.0-11.0 [facility] Comment on above: Performed By: #### B KVIRUS #### [facility] [address] [place] [address] Dr. Brea Causey LIPID PROFILEon 02-01-2022 CHOL-HDL RATIO NORM SEE BELOW Normal [facility] Comment on above: Result Comment: 3.3 - 4.4 LOW RISK 4.4 - 7.1 AVERAGE RISK 7.1 - 11.0 MODERATE RISK >11.0 HIGH RISK Performed By: #### C BC #### [facility] [address] [place] [address] Dr. Brea Causey Cholesterol [Mass/Vol] 77 mg/dL Normal <=200 Th [facility] Comment on above: Performed By: #### C BC #### [facility] [address] [place] [address] Dr. Brea Causey Cholesterol in HDL [Mass/Vol] 40 mg/dL Normal 40-60 [facility] Comment on above: Performed By: #### C BC #### [facility] [address] [place] [address] Dr. Brea Causey Cholesterol in LDL [Mass/Vol] 21.0 mg/dL Normal [facility] Comment on above: Performed By: #### C BC #### [facility] [address] [place] [address] Dr. Brea Causey Cholesterol.total/Chol esterol in HDL [Mass ratio] 1.9 {ratio} Normal [facility] Comment on above: Performed By: #### C BC #### [facility] [address] [place] [address] Dr. Brea Causey HDL NORMAL > or = 60 mg/dl - LO W CARDIOVASCULAR RISK <40 mg/dl - HIGH CARDIOVASCULAR RISK Normal [facility] Comment on above: Performed By: #### C BC #### [facility] [address] [place] [address] Dr. Brea Causey LDL CALC NORMAL SEE BELOW Normal [facility] Comment on above: Result Comment: <100 mg/dl OPTIMAL 100 - 129 mg/dl NEAR OR ABOVE OPTIMAL 130 - 159 mg/dl BORDERLINE HIGH 160 - 189 mg/dl HIGH >190 mg/dl VERY HIGH Performed By: #### C BC #### [facility] [address] [place] [address] Dr. Brea Causey Triglyceride [Mass/Vol] 80 mg/dL Normal <=150 [facility] Comment on above: Performed By: #### C BC #### [facility] [address] [place] [address] Dr. Brea Causey VLDL CALC 16.0 mg/dL Normal [facility] Comment on above: Performed By: #### C BC #### [facility] [address] [place] [address] Dr. Brea Causey MAGNESIUMon 02-01-2022 Magnesium [Mass/Vol] 1.5 mg/dL Critically low 1.8-2.4 [facility] Comment on above: Performed By: #### C BC #### [facility] [address] [place] [address] Dr. Brea Causey PHOSPHORUSon 02-01-2022 Phosphate [Mass/Vol] 4.1 mg/dL Normal 2.6-4.7 [facility] Comment on above: Performed By: #### C BC #### [facility] [address] [place] [address] Dr. Brea Causey PROF 14(COMP METB)on 022 Albumin [Mass/Vol] 4.0 g/dL Normal 3.4-5.0 [facility] Comment on above: Performed By: #### C BC #### [facility] [address] [place] [address] Dr. Brea Causey Albumin/Globulin [Mass ratio] 1.3 {ratio} Normal [facility] Comment on above: Performed By: #### C BC #### [facility] [address] [place] [address] Dr. Brea Causey ALP [Catalytic activity/Vol] 162 U/L Critically high 46-116 [facility] Comment on above: Performed By: #### C BC #### [facility] [address] [place] [address] Dr. Brea Causey ALT [Catalytic activity/Vol] 25 U/L Normal 16-63 [facility] Comment on above: Performed By: #### C BC #### [facility] [address] [address] [address] Brea Causey Anion gap [Moles/Vol] 11.1 mmol/L Normal [facility] Comment on above: Performed By: #### C BC #### [facility] [address] [place] [address] Dr. Brea Causey AST [Catalytic activity/Vol] 16 U/L Normal 15-37 [facility] Comment on above: Performed By: #### C BC #### [facility] [address] [place] [address] Dr. Brea Causey Bilirubin [Mass/Vol] 0.4 mg/dL Normal 0.2-1.0 [facility] Comment on above: Performed By: #### C BC #### [facility] [address] [place] [address] Dr. Brea Causey Calcium [Mass/Vol] 8.2 mg/dL Critically low 8.5-10.1 [facility] Comment on above: Performed By: #### C BC #### [facility] [address] [place] [address] Dr. Brea Causey Chloride [Moles/Vol] 99 mmol/L Normal 98-107 [facility] Comment on above: Performed By: #### C BC #### [facility] [address] [place] [address] Dr. Brea Causey CO2 [Moles/Vol] 28.1 mmol/L Normal 21.0-32.[address] [facility] Comment on above: Performed By: #### C BC #### [facility] [address] [place] [address] Dr. Brea Causey Creatinine [Mass/Vol] 1.13 mg/dL Normal 0.70-1.30 [facility] Comment on above: Performed By: #### C BC #### [facility] [address] [address] [address] Brea Causey EGFR-AF BULGARIAN >60 Normal >=[address] [facility] Comment on above: Performed By: #### C BC #### [facility] [address] [address] [address] Brea Causey EGFR-NON AF BULGARIAN >60 Normal >=60 [facility] Comment on above: Performed By: #### C BC #### [facility] [address] [address] [address] Brea Causey Globulin (S) [Mass/Vol] 3.1 g/dL Normal [facility] Comment on above: Performed By: #### C BC #### [facility] [address] [place] [address] Dr. Brea Causey Glucose [Mass/Vol] 177 mg/dL Critically high 74-106 T [facility] Comment on above: Performed By: #### C BC #### [facility] [address] [address] [address] Brea Causey Potassium [Moles/Vol] 5.2 mmol/L Critically high 3.5-5.1 [facility] Comment on above: Performed By: #### C BC #### [facility] [address] [place] [address] Dr. Brea Causey Protein [Mass/Vol] 7.1 g/dL Normal 6.4-8.2 [facility] Comment on above: Performed By: #### C BC #### [facility] [address] [address] [address] Brea Causey Sodium [Moles/Vol] 133 mmol/L Critically low 136-145 [facility] Comment on above: Performed By: #### C BC #### [facility] [address] [place] [address] Dr. Brea Causey Urea nitrogen [Mass/Vol] 12.0 mg/dL Normal 7.0-18.0 [facility] Comment on above: Performed By: #### C BC #### [facility] [address] [place] [address] Dr. Brea Causey Urea nitrogen/Creatinine [Mass ratio] 10.6 mg/mg Normal [facility] Comment on above: Performed By: #### C BC #### [facility] [address] [place] [address] Dr. Brea Causey URIC ACID SERUMon 02-01-2022 Urate [Mass/Vol] 7.7 mg/dL Critically high 3.5-7.2 [facility] Comment on above: Performed By: #### C BC #### [facility] [address] [place] [address] Dr. Brea Causey FK506 (TACROLIMUS) WHOLE BLO ODon 01-06-2022 Tacrolimus (FK506), Blood 11.4 ng/mL Normal 2.0-20.0 [facility] Comment on above: Result Comment: Trou gh (immediately following transplant) 15.0 . Trough (steady state, 2 weeks or more after transplant): 3.0 - 8.0 . Performed by LC-MS/MS technology. Performed By: #### B KVIRUS #### [facility] [address] [place] [address] Dr. Brea Causey BILIRUBIN CONJUGATED (DIRECT )on 01-04-2022 BILI, CONJUGATED 0.1 mg/dL Normal 0.0-0.[address] [facility] Comment on above: Performed By: #### U CLINT, CMP, LIPID, DBIL, PHOS, MG #### [facility] [address] [place] [address] Dr. Brea Causey BOX TEST SENT OUTon 01-05-20 22 SENT TO REF LAB 01/04/2022 Normal [facility] Comment on above: Performed By: #### U CLINT, CMP, LIPID, DBIL, PHOS, MG #### [facility] [address] [place] [address] Dr. Brea Causey CBC AUTO DIFFon 01-04-2022 BASO # 0.0 103/ul Normal 0.0-0.1 [facility] Comment on above: Performed By: #### U CLINT, CMP, LIPID, DBIL, PHOS, MG #### [facility] [address] [place] [address] Dr. Brea Causey Basophils/100 WBC (Bld) 0.5 % Normal 0.2-2.0 [facility] Comment on above: Performed By: #### U CLINT, CMP, LIPID, DBIL, PHOS, MG #### [facility] [address] [place] [address] Dr. Brea Causey EO # 0.3 103/ul Normal 0.0-0.7 [facility] Comment on above: Performed By: #### U CLINT, CMP, LIPID, DBIL, PHOS, MG #### [facility] [address] [place] [address] Dr. Brea Causey Eosinophils/100 WBC (Bld) 3.9 % Normal 0.9-7.0 [facility] Comment on above: Performed By: #### U CLINT, CMP, LIPID, DBIL, PHOS, MG #### [facility] [address] [place] [address] Dr. Brea Causey Erythrocyte distribution width (RBC) [Ratio] 13.1 % Normal 11.0-15.0 [facility] Comment on above: Performed By: #### U CLINT, CMP, LIPID, DBIL, PHOS, MG #### [facility] [address] [place] [address] Dr. Brea Causey Hematocrit (Bld) [Volume fraction] 37.4 % Critically low 42.0-54.0 [facility] Comment on above: Performed By: #### U CLINT, CMP, LIPID, DBIL, PHOS, MG #### [facility] [address] [place] [address] Dr. Brea Causey Hemoglobin (Bld) [Mass/Vol] 12.0 g/dL Critically low 14.0-18.0 [facility] Comment on above: Performed By: #### U CLINT, CMP, LIPID, DBIL, PHOS, MG #### [facility] [address] [place] [address] Dr. Brea Causey IG # 0.07 10e3/ul Critically high 0.00-0.03 [facility] Comment on above: Performed By: #### U CLINT, CMP, LIPID, DBIL, PHOS, MG #### [facility] [address] [address] [address] Brea Causey IG % 1.1 % Critically high 0.0-0.5 [facility] Comment on above: Performed By: #### U CLINT, CMP, LIPID, DBIL, PHOS, MG #### [facility] [address] [place] [address] Dr. Brea Causey LYMPH # 0.8 103/ul Critically low 1.2-3.8 [facility] Comment on above: Performed By: #### U CLINT, CMP, LIPID, DBIL, PHOS, MG #### [facility] [address] [place] [address] Dr. Brea Causey Lymphocytes/100 WBC (Bld) 12.2 % Critically low 20.5-60.0 [facility] Comment on above: Performed By: #### U CLINT, CMP, LIPID, DBIL, PHOS, MG #### [facility] [address] [place] [address] Dr. Brea Causey MANUAL DIFF REQ NO Normal [facility] Comment on above: Performed By: #### U CLINT, CMP, LIPID, DBIL, PHOS, MG #### [facility] [address] [place] [address] Dr. Brea Causey MCH (RBC) [Entitic mass] 29.1 pg Normal 25.9-34.0 [facility] Comment on above: Performed By: #### U CLINT, CMP, LIPID, DBIL, PHOS, MG #### [facility] [address] [place] [address] Dr. Brea Causey MCHC (RBC) [Mass/Vol] 32.1 g/dL Normal 29.9-35.2 [facility] Comment on above: Performed By: #### U CLINT, CMP, LIPID, DBIL, PHOS, MG #### [facility] [address] [place] [address] Dr. Brea Causey MCV (RBC) [Entitic vol] 90.6 fL Normal 80.0-94.0 [facility] Comment on above: Performed By: #### U CLINT, CMP, LIPID, DBIL, PHOS, MG #### [facility] [address] [place] [address] Dr. Brea Causey MONO # 0.5 103/ul Normal 0.3-0.8 [facility] Comment on above: Performed By: #### U CLINT, CMP, LIPID, DBIL, PHOS, MG #### [facility] [address] [place] [address] Dr. Brea Causey Monocytes/100 WBC (Bld) 8.0 % Normal 1.7-12.0 [facility] Comment on above: Performed By: #### U CLINT, CMP, LIPID, DBIL, PHOS, MG #### [facility] [address] [place] [address] Dr. Brea Causey NEUT # 5.0 103/ul Normal 1.4-6.5 [facility] Comment on above: Performed By: #### U CLINT, CMP, LIPID, DBIL, PHOS, MG #### [facility] [address] [place] [address] Dr. Brea Causey Neutrophils/100 WBC (Bld) 74.3 % Normal 43.0-75.0 [facility] Comment on above: Performed By: #### U CLINT, CMP, LIPID, DBIL, PHOS, MG #### [facility] [address] [place] [address] Dr. Brea Causey Platelet mean volume (Bld) [Entitic vol] 9.5 fL Normal 9.5-13.5 [facility] Comment on above: Performed By: #### U CLINT, CMP, LIPID, DBIL, PHOS, MG #### [facility] [address] [place] [address] Dr. Brea Causey PLT 243 103/ul Normal 150-450 [facility] Comment on above: Performed By: #### U CLINT, CMP, LIPID, DBIL, PHOS, MG #### [facility] [address] [place] [address] Dr. Brea Causey RBC 4.13 106/ul Critically low 4.70-6.10 [facility] Comment on above: Performed By: #### U CLINT, CMP, LIPID, DBIL, PHOS, MG #### [facility] [address] [address] [address] Brea Causey WBC 6.7 103/ul Normal 4.0-11.0 [facility] Comment on above: Performed By: #### U CLINT, CMP, LIPID, DBIL, PHOS, MG #### [facility] [address] [address] [address] Brea Causey LIPID PROFILEon 01-04-2022 CHOL-HDL RATIO NORM SEE BELOW [facility] Comment on above: Result Comment: 3.3 - 4.4 LOW RISK 4.4 - 7.1 AVERAGE RISK 7.1 - 11.0 MODERATE RISK >11.0 HIGH RISK Performed By: #### U CLINT, CMP, LIPID, DBIL, PHOS, MG #### [facility] [address] [address] [address] Brea Causey Cholesterol [Mass/Vol] 81 mg/dL Normal <=200 Th [facility] Comment on above: Performed By: #### U CLINT, CMP, LIPID, DBIL, PHOS, MG #### [facility] [address] [address] [address] Brea Causey Cholesterol in HDL [Mass/Vol] 43 mg/dL Normal 40-60 [facility] Comment on above: Performed By: #### U CLINT, CMP, LIPID, DBIL, PHOS, MG #### [facility] [address] [address] [address] Brea Causey Cholesterol in LDL [Mass/Vol] 26.0 mg/dL Normal [facility] Comment on above: Performed By: #### U CLINT, CMP, LIPID, DBIL, PHOS, MG #### [facility] [address] [address] [address] Brea Causey Cholesterol.total/Chol esterol in HDL [Mass ratio] 1.9 {ratio} Normal [facility] Comment on above: Performed By: #### U CLINT, CMP, LIPID, DBIL, PHOS, MG #### [facility] [address] [address] [address] Brea Causey HDL NORMAL > or = 60 mg/dl - LO W CARDIOVASCULAR RISK <40 mg/dl - HIGH CARDIOVASCULAR RISK Normal [facility] Comment on above: Performed By: #### U CLINT, CMP, LIPID, DBIL, PHOS, MG #### [facility] [address] [address] [address] Brea Causey LDL CALC NORMAL SEE BELOW Normal [facility] Comment on above: Result Comment: <100 mg/dl OPTIMAL 100 - 129 mg/dl NEAR OR ABOVE OPTIMAL 130 - 159 mg/dl BORDERLINE HIGH 160 - 189 mg/dl HIGH >190 mg/dl VERY HIGH Performed By: #### U CLINT, CMP, LIPID, DBIL, PHOS, MG #### [facility] [address] [place] [address] Dr. Brea Causey Triglyceride [Mass/Vol] 60 mg/dL Normal <=150 [facility] Comment on above: Performed By: #### U CLINT, CMP, LIPID, DBIL, PHOS, MG #### [facility] [address] [address] [address] Brea Causey VLDL CALC 12.0 mg/dL Normal [facility] Comment on above: Performed By: #### U CLINT, CMP, LIPID, DBIL, PHOS, MG #### [facility] [address] [address] [address] Brea Causey MAGNESIUMon 01-04-2022 Magnesium [Mass/Vol] 1.4 mg/dL Critically low 1.8-2.4 [facility] Comment on above: Performed By: #### U CLINT, CMP, LIPID, DBIL, PHOS, MG #### [facility] [address] [address] [address] Brea Causey PHOSPHORUSon 01-04-2022 Phosphate [Mass/Vol] 4.4 mg/dL Normal 2.6-4.7 [facility] Comment on above: Performed By: #### U CLINT, CMP, LIPID, DBIL, PHOS, MG #### [facility] [address] [place] [address] Dr. Brea Causey PROF 14(COMP METB)on 022 Albumin [Mass/Vol] 3.9 g/dL Normal 3.4-5.0 [facility] Comment on above: Performed By: #### U CLINT, CMP, LIPID, DBIL, PHOS, MG #### [facility] [address] [place] [address] Dr. Brea Causey Albumin/Globulin [Mass ratio] 1.2 {ratio} Normal [facility] Comment on above: Performed By: #### U CLINT, CMP, LIPID, DBIL, PHOS, MG #### [facility] [address] [place] [address] Dr. Brea Causey ALP [Catalytic activity/Vol] 155 U/L Critically high 46-116 [facility] Comment on above: Performed By: #### U CLINT, CMP, LIPID, DBIL, PHOS, MG #### [facility] [address] [place] [address] Dr. Brea Causey ALT [Catalytic activity/Vol] 27 U/L Normal 16-63 [facility] Comment on above: Performed By: #### U CLINT, CMP, LIPID, DBIL, PHOS, MG #### [facility] [address] [place] [address] Dr. Brea Causey Anion gap [Moles/Vol] 14.6 mmol/L Normal [facility] Comment on above: Performed By: #### U CLINT, CMP, LIPID, DBIL, PHOS, MG #### [facility] [address] [place] [address] Dr. Brea Causey AST [Catalytic activity/Vol] 17 U/L Normal 15-37 [facility] Comment on above: Performed By: #### U CLINT, CMP, LIPID, DBIL, PHOS, MG #### [facility] [address] [place] [address] Dr. Brea Causey Bilirubin [Mass/Vol] 0.3 mg/dL Normal 0.2-1.0 [facility] Comment on above: Performed By: #### U CLINT, CMP, LIPID, DBIL, PHOS, MG #### [facility] [address] [address] [address] Brea Causey Calcium [Mass/Vol] 8.1 mg/dL Critically low 8.5-10.1 [facility] Comment on above: Performed By: #### U CLINT, CMP, LIPID, DBIL, PHOS, MG #### [facility] [address] [address] [address] Brea Causey Chloride [Moles/Vol] 99 mmol/L Normal 98-107 [facility] Comment on above: Performed By: #### U CLINT, CMP, LIPID, DBIL, PHOS, MG #### [facility] [address] [place] [address] Dr. Brea Causey CO2 [Moles/Vol] 25.0 mmol/L Normal 21.0-32.[address] [facility] Comment on above: Performed By: #### U CLINT, CMP, LIPID, DBIL, PHOS, MG #### [facility] [address] [place] [address] Dr. Brea Causey Creatinine [Mass/Vol] 1.05 mg/dL Normal 0.70-1.30 [facility] Comment on above: Performed By: #### U CLINT, CMP, LIPID, DBIL, PHOS, MG #### [facility] [address] [place] [address] Dr. Brea Causey EGFR-AF BULGARIAN >60 Normal >=[address] [facility] Comment on above: Performed By: #### U CLINT, CMP, LIPID, DBIL, PHOS, MG #### [facility] [address] [place] [address] Dr. Brea Causey EGFR-NON AF BULGARIAN >60 Normal >=60 [facility] Comment on above: Performed By: #### U CLINT, CMP, LIPID, DBIL, PHOS, MG #### [facility] [address] [place] [address] Dr. Brea Causey Globulin (S) [Mass/Vol] 3.2 g/dL Normal [facility] Comment on above: Performed By: #### U CLINT, CMP, LIPID, DBIL, PHOS, MG #### [facility] [address] [address] [address] Brea Causey Glucose [Mass/Vol] 177 mg/dL Critically high 74-106 [facility] Comment on above: Performed By: #### U CLINT, CMP, LIPID, DBIL, PHOS, MG #### [facility] [address] [address] [address] Brea Causey Potassium [Moles/Vol] 4.6 mmol/L Normal 3.5-5.1 [facility] Comment on above: Performed By: #### U CLINT, CMP, LIPID, DBIL, PHOS, MG #### [facility] [address] [place] [address] Dr. Brea Causey Protein [Mass/Vol] 7.1 g/dL Normal 6.4-8.2 [facility] Comment on above: Performed By: #### U CLINT, CMP, LIPID, DBIL, PHOS, MG #### [facility] [address] [place] [address] Dr. Brea Causey Sodium [Moles/Vol] 134 mmol/L Critically low 136-145 Th [facility] Comment on above: Performed By: #### U CLINT, CMP, LIPID, DBIL, PHOS, MG #### [facility] [address] [place] [address] Dr. Brea Causey Urea nitrogen [Mass/Vol] 14.0 mg/dL Normal 7.0-18.0 [facility] Comment on above: Performed By: #### U CLINT, CMP, LIPID, DBIL, PHOS, MG #### [facility] [address] [place] [address] Dr. Brea Causey Urea nitrogen/Creatinine [Mass ratio] 13.3 mg/mg Normal [facility] Comment on above: Performed By: #### U CLINT, CMP, LIPID, DBIL, PHOS, MG #### [facility] [address] [place] [address] Dr. Brea Causey URIC ACID SERUMon 01-04-2022 Urate [Mass/Vol] 7.6 mg/dL Critically high 3.5-7.2 [facility] Comment on above: Performed By: #### U CLINT, CMP, LIPID, DBIL, PHOS, MG #### [facility] [address] [place] [address] Dr. Brea Causey BK VIRUS PCR QUANTon 022 BKV DNA QUANT PCR PLASMA Negative Normal Negative [facility] Comment on above: Result Comment: No B K DNA detected. . The linear range of the assay is 22 - 100,000,000 IU/mL. Performed By: #### B KVIRUS #### [facility] [address] [address] [address] Brea Causey Log10 BKV DNA Plasma Normal [facility] Comment on above: Performed By: #### B KVIRUS #### [facility] [address] [place] [address] Dr. Brea Causey FK506 (TACROLIMUS) WHOLE BLO ODon 12-03-2021 Tacrolimus (FK506), Blood 5.6 ng/mL Normal 2.0-20.0 [facility] Comment on above: Result Comment: Trou gh (immediately following transplant) 15.0 . Trough (steady state, 2 weeks or more after transplant): 3.0 - 8.0 . Performed by LC-MS/MS technology. Performed By: #### U CLINT, CMP, LIPID, DBIL, PHOS, MG #### [facility] [address] [place] [address] Dr. Brea Causey TESTOSTERONE, FREE,DIRECT, T OTALon 12-03-2021 Free Testosterone(Direct) 7.5 pg/mL Normal 6.6-18.1 [facility] Comment on above: Result Comment: Perf ormed at: BN Performed By: #### U CLINT, CMP, LIPID, DBIL, PHOS, MG #### [facility] [address] [place] [address] Dr. Brea Causey Testosterone [Mass/Vol] 467 ng/dL Normal 264-916 [facility] Comment on above: Result Comment: Adul t male reference interval is based on a population of healthy nonobese males (BMI <30) between 19 and 39 years old. Travison, et.al. JCEM 2017,102;8573-8194. PMID: [id number]. Performed at: CB Performed By: #### U CLINT, CMP, LIPID, DBIL, PHOS, MG #### [facility] [address] [place] [address] Dr. Brea Causey BILIRUBIN CONJUGATED (DIRECT )on 11-30-2021 BILI, CONJUGATED 0.2 mg/dL Normal 0.0-0.[address] [facility] Comment on above: Performed By: #### B KVIRUS #### [facility] [address] [place] [address] Dr. Brea Causey CBC AUTO DIFFon 11-30-2021 BASO # 0.0 103/ul Normal 0.0-0.1 [facility] Comment on above: Performed By: #### U CLINT, CMP, LIPID, DBIL, PHOS, MG #### [facility] [address] [place] [address] Dr. Brea Causey Basophils/100 WBC (Bld) 0.6 % Normal 0.2-2.0 [facility] Comment on above: Performed By: #### U CLINT, CMP, LIPID, DBIL, PHOS, MG #### [facility] [address] [place] [address] Dr. Brea Causey EO # 0.2 103/ul Normal 0.0-0.7 [facility] Comment on above: Performed By: #### U CLINT, CMP, LIPID, DBIL, PHOS, MG #### [facility] [address] [place] [address] Dr. Brea Causey Eosinophils/100 WBC (Bld) 2.7 % Normal 0.9-7.0 [facility] Comment on above: Performed By: #### U CLINT, CMP, LIPID, DBIL, PHOS, MG #### [facility] [address] [place] [address] Dr. Brea Causey Erythrocyte distribution width (RBC) [Ratio] 13.0 % Normal 11.0-15.0 [facility] Comment on above: Performed By: #### U CLINT, CMP, LIPID, DBIL, PHOS, MG #### [facility] [address] [place] [address] Dr. Brea Causey Hematocrit (Bld) [Volume fraction] 37.6 % Critically low 42.0-54.0 [facility] Comment on above: Performed By: #### U CLINT, CMP, LIPID, DBIL, PHOS, MG #### [facility] [address] [place] [address] Dr. Brea Causey Hemoglobin (Bld) [Mass/Vol] 12.4 g/dL Critically low 14.0-18.0 [facility] Comment on above: Performed By: #### U CLINT, CMP, LIPID, DBIL, PHOS, MG #### [facility] [address] [place] [address] Dr. Brea Causey IG # 0.06 10e3/ul Critically high 0.00-0.03 [facility] Comment on above: Performed By: #### U CLINT, CMP, LIPID, DBIL, PHOS, MG #### [facility] [address] [place] [address] Dr. Brea Causey IG % 0.9 % Critically high 0.0-0.5 [facility] Comment on above: Performed By: #### U CLINT, CMP, LIPID, DBIL, PHOS, MG #### [facility] [address] [place] [address] Dr. Brea Causey LYMPH # 1.0 103/ul Critically low 1.2-3.8 [facility] Comment on above: Performed By: #### U CLINT, CMP, LIPID, DBIL, PHOS, MG #### [facility] [address] [place] [address] Dr. Brea Causey Lymphocytes/100 WBC (Bld) 14.6 % Critically low 20.5-60.0 [facility] Comment on above: Performed By: #### U CLINT, CMP, LIPID, DBIL, PHOS, MG #### [facility] [address] [place] [address] Dr. Brea Causey MANUAL DIFF REQ NO Normal [facility] Comment on above: Performed By: #### U CLINT, CMP, LIPID, DBIL, PHOS, MG #### [facility] [address] [place] [address] Dr. Brea Causey MCH (RBC) [Entitic mass] 29.4 pg Normal 25.9-34.0 [facility] Comment on above: Performed By: #### U CLINT, CMP, LIPID, DBIL, PHOS, MG #### [facility] [address] [place] [address] Dr. Brea Causey MCHC (RBC) [Mass/Vol] 33.0 g/dL Normal 29.9-35.2 [facility] Comment on above: Performed By: #### U CLINT, CMP, LIPID, DBIL, PHOS, MG #### [facility] [address] [place] [address] Dr. Brea Causey MCV (RBC) [Entitic vol] 89.1 fL Normal 80.0-94.0 [facility] Comment on above: Performed By: #### U CLINT, CMP, LIPID, DBIL, PHOS, MG #### [facility] [address] [place] [address] Dr. Brea Causey MONO # 0.7 103/ul Normal 0.3-0.8 [facility] Comment on above: Performed By: #### U CLINT, CMP, LIPID, DBIL, PHOS, MG #### [facility] [address] [place] [address] Dr. Brea Causey Monocytes/100 WBC (Bld) 10.0 % Normal 1.7-12.0 [facility] Comment on above: Performed By: #### U CLINT, CMP, LIPID, DBIL, PHOS, MG #### [facility] [address] [place] [address] Dr. Brea Causey NEUT # 4.8 103/ul Normal 1.4-6.5 [facility] Comment on above: Performed By: #### U CLINT, CMP, LIPID, DBIL, PHOS, MG #### [facility] [address] [place] [address] Dr. Brea Causey Neutrophils/100 WBC (Bld) 71.2 % Normal 43.0-75.0 [facility] Comment on above: Performed By: #### U CLINT, CMP, LIPID, DBIL, PHOS, MG #### [facility] [address] [address] [address] Brea Causey Platelet mean volume (Bld) [Entitic vol] 9.0 fL Critically low 9.5-13.5 [facility] Comment on above: Performed By: #### U CLINT, CMP, LIPID, DBIL, PHOS, MG #### [facility] [address] [address] [address] Brea Causey PLT 280 103/ul Normal 150-450 [facility] Comment on above: Performed By: #### U CLINT, CMP, LIPID, DBIL, PHOS, MG #### [facility] [address] [place] [address] Dr. Brea Causey RBC 4.22 106/ul Critically low 4.70-6.10 [facility] Comment on above: Performed By: #### U CLINT, CMP, LIPID, DBIL, PHOS, MG #### [facility] [address] [address] [address] Brea Causey WBC 6.7 103/ul Normal 4.0-11.0 [facility] Comment on above: Performed By: #### U CLINT, CMP, LIPID, DBIL, PHOS, MG #### [facility] [address] [place] [address] Dr. Brea Causey GLYCOHEMOGLOBIN A1Con 2021 ADA RECOMMENDATION SEE BELOW Normal [facility] Comment on above: Result Comment: ADA RECOMMENDED LIMIT 4.0 - 6.0 ADA THERAPEUTIC TARGET < 7.0 ACTION SUGGESTED > 7.0 Performed By: #### B KVIRUS #### [facility] [address] [place] [address] Dr. Brea Causey Glucose [Mass/Vol] 171 mg/dL Normal [facility] Comment on above: Performed By: #### B KVIRUS #### [facility] [address] [address] [address] Brea Causey HbA1c (Bld) [Mass fraction] 7.6 % Critically high 4.5-6.2 [facility] Comment on above: Performed By: #### B KVIRUS #### [facility] [address] [place], [place] [address] Dr. Brea Causey LIPID PROFILEon 11-30-2021 CHOL-HDL RATIO NORM SEE BELOW Normal [facility] Comment on above: Result Comment: 3.3 - 4.4 LOW RISK 4.4 - 7.1 AVERAGE RISK 7.1 - 11.0 MODERATE RISK >11.0 HIGH RISK Performed By: #### C BC #### [facility] [address] [place], [place] [address] Dr. Brea Causey Cholesterol [Mass/Vol] 75 mg/dL Normal <=200 [facility] Comment on above: Performed By: #### C BC #### [facility] [address] [id number] Brea Causey Cholesterol in HDL [Mass/Vol] 41 mg/dL Normal 40-60 [facility] Comment on above: Performed By: #### C BC #### [facility] [address] [place], [place] [address] Dr. Brea Causey Cholesterol in LDL [Mass/Vol] 18.6 mg/dL Normal [facility] Comment on above: Performed By: #### C BC #### [facility] [address] [place], [place] [address] Dr. Brea Causey Cholesterol.total/Chol esterol in HDL [Mass ratio] 1.8 {ratio} Normal [facility] Comment on above: Performed By: #### C BC #### [facility] [address] [place], [place] [address] Dr. Brea Causey HDL NORMAL > or = 60 mg/dl - LO W CARDIOVASCULAR RISK <40 mg/dl - HIGH CARDIOVASCULAR RISK Normal [facility] Comment on above: Performed By: #### C BC #### [facility] [address] [place], [place] [address] Dr. Brea Causey LDL CALC NORMAL SEE BELOW Normal [facility] Comment on above: Result Comment: <100 mg/dl OPTIMAL 100 - 129 mg/dl NEAR OR ABOVE OPTIMAL 130 - 159 mg/dl BORDERLINE HIGH 160 - 189 mg/dl HIGH >190 mg/dl VERY HIGH Performed By: #### C BC #### [facility] [address] [place] [address] Dr. Brea Causey Triglyceride [Mass/Vol] 77 mg/dL Normal <=150 [facility] Comment on above: Performed By: #### C BC #### [facility] [address] [place] [address] Dr. Brea Causey VLDL CALC 15.4 mg/dL Normal [facility] Comment on above: Performed By: #### C BC #### [facility] [address] [place] [address] Dr. Brea Causey MAGNESIUMon 11-30-2021 Magnesium [Mass/Vol] 1.4 mg/dL Critically low 1.8-2.4 [facility] Comment on above: Performed By: #### B KVIRUS #### [facility] [address] [place] [address] Dr. Brea Causey PHOSPHORUSon 11-30-2021 Phosphate [Mass/Vol] 4.1 mg/dL Normal 2.6-4.7 [facility] Comment on above: Performed By: #### C BC #### [facility] [address] [place] [address] Dr. Brea Causey PROF 14(COMP METB)on 022 Albumin [Mass/Vol] 4.2 g/dL Normal 3.4-5.0 [facility] Comment on above: Performed By: #### C BC #### [facility] [address] [place] [address] Dr. Brea aCusey Albumin/Globulin [Mass ratio] 1.3 {ratio} Normal [facility] Comment on above: Performed By: #### C BC #### [facility] [address] [place] [address] Dr. Brea Causey ALP [Catalytic activity/Vol] 148 U/L Critically high 46-116 [facility] Comment on above: Performed By: #### C BC #### [facility] [address] [place] [address] Dr. Brea Causey ALT [Catalytic activity/Vol] 36 U/L Normal 16-63 [facility] Comment on above: Performed By: #### C BC #### [facility] [address] [address] [address] Brea Causey Anion gap [Moles/Vol] 14.7 mmol/L Normal [facility] Comment on above: Performed By: #### C BC #### [facility] [address] [address] [address] Brea Causey AST [Catalytic activity/Vol] 21 U/L Normal 15-37 [facility] Comment on above: Performed By: #### C BC #### [facility] [address] [address] [address] Brea Causey Bilirubin [Mass/Vol] 0.4 mg/dL Normal 0.2-1.0 [facility] Comment on above: Performed By: #### C BC #### [facility] [address] [place] [address] Dr. Brea Causey Calcium [Mass/Vol] 8.3 mg/dL Critically low 8.5-10.1 [facility] Comment on above: Performed By: #### C BC #### [facility] [address] [address] [address] Brea Causey Chloride [Moles/Vol] 98 mmol/L Normal 98-107 [facility] Comment on above: Performed By: #### C BC #### [facility] [address] [address] [address] Brea Causey CO2 [Moles/Vol] 27.2 mmol/L Normal 21.0-32.[address] [facility] Comment on above: Performed By: #### C BC #### [facility] [address] [address] [address] Brea Causey Creatinine [Mass/Vol] 1.10 mg/dL Normal 0.70-1.30 [facility] Comment on above: Performed By: #### C BC #### [facility] [address] [address] [address] Brea Causey EGFR-AF BULGARIAN >60 Normal >=[address] [facility] Comment on above: Performed By: #### C BC #### [facility] [address] [address] [address] Brea Causey EGFR-NON AF BULGARIAN >60 Normal >=60 [facility] Comment on above: Performed By: #### C BC #### [facility] [address] [address] [address] Brea Causey Globulin (S) [Mass/Vol] 3.2 g/dL Normal [facility] Comment on above: Performed By: #### C BC #### [facility] [address] [address] [address] Brea Causey Glucose [Mass/Vol] 173 mg/dL Critically high 74-106 T [facility] Comment on above: Performed By: #### C BC #### [facility] [address] [place] [address] Dr. Brea Causey Potassium [Moles/Vol] 4.9 mmol/L Normal 3.5-5.1 [facility] Comment on above: Performed By: #### C BC #### [facility] [address] [place] [address] Dr. Brea Causey Protein [Mass/Vol] 7.4 g/dL Normal 6.4-8.2 [facility] Comment on above: Performed By: #### C BC #### [facility] [address] [place] [address] Dr. Brea Causey Sodium [Moles/Vol] 135 mmol/L Critically low 136-145 Th [facility] Comment on above: Performed By: #### C BC #### [facility] [address] [place] [address] Dr. Brea Causey Urea nitrogen [Mass/Vol] 14.0 mg/dL Normal 7.0-18.0 [facility] Comment on above: Performed By: #### C BC #### [facility] [address] [place] [address] Dr. Brea Causey Urea nitrogen/Creatinine [Mass ratio] 12.7 mg/mg Normal [facility] Comment on above: Performed By: #### C BC #### [facility] [address] [place] [address] Dr. Brea Causey URIC ACID SERUMon 11-30-2021 Urate [Mass/Vol] 7.8 mg/dL Critically high 3.5-7.2 [facility] Comment on above: Performed By: #### C BC #### [facility] [address] [place] [address] Dr. Brea Causey BNPon 11-14-2021 Natriuretic peptide B (Bld) [Mass/Vol] 350.0 pg/mL Normal <=900.0 [facility] Comment on above: Performed By: #### C BC #### [facility] [address] [place] [address] Dr. Brea Causey CBC AUTO DIFFon 11-14-2021 BASO # 0.0 103/ul Normal 0.0-0.1 [facility] Comment on above: Performed By: #### C BC #### [facility] [address] [place] [address] Dr. Brea Causey Basophils/100 WBC (Bld) 0.1 % Critically low 0.2-2.0 [facility] Comment on above: Performed By: #### C BC #### [facility] [address] [place] [address] Dr. Brea Causey EO # 0.2 103/ul Normal 0.0-0.7 [facility] Comment on above: Performed By: #### C BC #### [facility] [address] [place] [address] Dr. Brea Causey Eosinophils/100 WBC (Bld) 1.4 % Normal 0.9-7.0 [facility] Comment on above: Performed By: #### C BC #### [facility] [address] [place] [address] Dr. Brea Causey Erythrocyte distribution width (RBC) [Ratio] 13.1 % Normal 11.0-15.0 [facility] Comment on above: Performed By: #### C BC #### [facility] [address] [place] [address] Dr. Brea Causey Hematocrit (Bld) [Volume fraction] 39.4 % Critically low 42.0-54.0 [facility] Comment on above: Performed By: #### C BC #### [facility] [address] [place] [address] Dr. Brea Causey Hemoglobin (Bld) [Mass/Vol] 13.2 g/dL Critically low 14.0-18.0 [facility] Comment on above: Performed By: #### C BC #### [facility] [address] [place] [address] Dr. Brea Causey IG # 0.11 10e3/ul Critically high 0.00-0.03 [facility] Comment on above: Performed By: #### C BC #### [facility] [address] [place] [address] Dr. Brea Causey IG % 0.6 % Critically high 0.0-0.5 [facility] Comment on above: Performed By: #### C BC #### [facility] [address] [place] [address] Dr. Brea Causey LYMPH # 1.1 103/ul Critically low 1.2-3.8 [facility] Comment on above: Performed By: #### C BC #### [facility] [address] [place] [address] Dr. Brea Causey Lymphocytes/100 WBC (Bld) 6.7 % Critically low 20.5-60.0 [facility] Comment on above: Performed By: #### C BC #### [facility] [address] [place] [address] Dr. Brea Causey MANUAL DIFF REQ NO Normal [facility] Comment on above: Performed By: #### C BC #### [facility] [address] [place] [address] Dr. Brea Causey MCH (RBC) [Entitic mass] 29.5 pg Normal 25.9-34.0 [facility] Comment on above: Performed By: #### C BC #### [facility] [address] [place] [address] Dr. Brea Causey MCHC (RBC) [Mass/Vol] 33.5 g/dL Normal 29.9-35.2 [facility] Comment on above: Performed By: #### C BC #### [facility] [address] [address] [address] Brea Causey MCV (RBC) [Entitic vol] 88.1 fL Normal 80.0-94.0 [facility] Comment on above: Performed By: #### C BC #### [facility] [address] [address] [address] Brea Causey MONO # 1.5 103/ul Critically high 0.3-0.8 [facility] Comment on above: Performed By: #### C BC #### [facility] [address] [address] [address] Brea Causey Monocytes/100 WBC (Bld) 8.6 % Normal 1.7-12.0 [facility] Comment on above: Performed By: #### C BC #### [facility] Laboratory [address] [address] [address] Brea Causey NEUT # 14.0 103/ul Critically high 1.4-6.[address] [facility] Comment on above: Performed By: #### C BC #### [facility] [address] [address] [address] Brea Causey Neutrophils/100 WBC (Bld) 82.6 % Critically high 43.0-75.0 [facility] Comment on above: Performed By: #### C BC #### [facility] [address] [address] [address] Brea Causey Platelet mean volume (Bld) [Entitic vol] 9.5 fL Normal 9.5-13.5 [facility] Comment on above: Performed By: #### C BC #### [facility] [address] [address] [address] Brea Causey PLT 303 103/ul Normal 150-450 [facility] Comment on above: Performed By: #### C BC #### [facility] [address] [address] [address] Brea Causey RBC 4.47 106/ul Critically low 4.70-6.10 [facility] Comment on above: Performed By: #### C BC #### [facility] [address] [place] [address] Dr. Brea Causey WBC 17.0 103/ul Critically high 4.0-11.[address] [facility] Comment on above: Performed By: #### C BC #### [facility] [address] [address] [address] Brea Causey Covid-19 PCR ([facility])on SARS-CoV-2 (COVID-19) RNA ISI+probe Ql (Unsp spec) Not detected Normal NOT DETECTED [facility] Comment on above: Result Comment: When [...] for this test is supported by the [place] of Health and Human Service's declaration that [...] CLINT, CMP, LIPID, DBIL, PHOS, MG #### [facility] [address] [place] [address] Dr. Brea Causey ER URINE PROFILEon 2 Bilirubin Ql (U) Negative Normal NEGATIVE The [facility] Comment on above: Performed By: #### U CLINT, CMP, LIPID, DBIL, PHOS, MG #### [facility] [address] [place] [address] Dr. Brea Causey Clarity (U) CLEAR Normal CLEAR [facility] Comment on above: Performed By: #### U LCINT, CMP, LIPID, DBIL, PHOS, MG #### [facility] [address] [address] [address] Brea Causey Color (U) YELLOW Normal YELLOW [facility] Comment on above: Performed By: #### U CLINT, CMP, LIPID, DBIL, PHOS, MG #### [facility] [address] [address] [address] Brea GORDON A micrscopic examination will be performed if indicated. Normal [facility] Comment on above: Performed By: #### U CLINT, CMP, LIPID, DBIL, PHOS, MG #### [facility] [address] [address] [address] Brea Causey Glucose Ql (U) Negative Normal NEGATIVE [facility] Comment on above: Performed By: #### U CLINT, CMP, LIPID, DBIL, PHOS, MG #### [facility] [address] [place] [address] Dr. Brea Causey Hemoglobin Ql (U) Negative Normal NEGATIVE [facility] Comment on above: Performed By: #### U CLINT, CMP, LIPID, DBIL, PHOS, MG #### [facility] [address] [address] [address] Brea Causey Ketones Ql (U) Negative Normal NEGATIVE [facility] Comment on above: Performed By: #### U CLINT, CMP, LIPID, DBIL, PHOS, MG #### [facility] [address] [place] [address] Dr. Brea Causey LEUKOCYTES Negative Normal NEGATIVE [facility] Comment on above: Performed By: #### U CLINT, CMP, LIPID, DBIL, PHOS, MG #### [facility] [address] [address] [address] Brea Causey Nitrite Ql (U) Negative Normal NEGATIVE [facility] Comment on above: Performed By: #### U CLINT, CMP, LIPID, DBIL, PHOS, MG #### [facility] [address] [address] [address] Brea Causey pH (U) 6.0 [pH] Normal 5-9 [facility] Comment on above: Performed By: #### U CLINT, CMP, LIPID, DBIL, PHOS, MG #### [facility] [address] [place] [address] Dr. Brea Causey SPEC GRAVITY <=1.005 Abnormal 1.005-<=1.025 [facility] Comment on above: Performed By: #### U CLINT, CMP, LIPID, DBIL, PHOS, MG #### [facility] [address] [place] [address] Dr. Brea Causey UA PROTEIN Negative Normal NEGATIVE/ TRACE [facility] Comment on above: Performed By: #### U CLINT, CMP, LIPID, DBIL, PHOS, MG #### [facility] [address] [place] [address] Dr. Brea Causey UR MICRO IND NOT INDICATED Normal [facility] Comment on above: Performed By: #### U CLINT, CMP, LIPID, DBIL, PHOS, MG #### [facility] [address] [place] [address] Dr. Brea Causey Urobilinogen Qn (U) 0.2 {Sabine'U}/dL Normal 0.2 - 1. 0 [facility] Comment on above: Performed By: #### U CLINT, CMP, LIPID, DBIL, PHOS, MG #### [facility] [address] [place] [address] Dr. Brea Causey GI PANEL (PCR)on 11-14-2021 Adenovirus F 40/41 Not detected Normal NOT DETECTED [facility] Comment on above: Performed By: #### U CLINT, CMP, LIPID, DBIL, PHOS, MG #### [facility] [address] [place] [address] Dr. Brea Causey Astrovirus Not detected Normal NOT DETECTED [facility] Comment on above: Performed By: #### U CLINT, CMP, LIPID, DBIL, PHOS, MG #### [facility] [address] [place] [address] Dr. Brea Causey C. Diff toxin A/B Not detected Normal NOT DETECTED [facility] Comment on above: Performed By: #### U CLINT, CMP, LIPID, DBIL, PHOS, MG #### [facility] [address] [address] [address] Brea Causey Campylobacter Not detected Normal NOT DETECTED The [facility] Comment on above: Performed By: #### U CLINT, CMP, LIPID, DBIL, PHOS, MG #### [facility] [address] [address] [address] Brea Causey Cryptosporidium Not detected Normal NOT DETECTED The [facility] Comment on above: Performed By: #### U CLINT, CMP, LIPID, DBIL, PHOS, MG #### [facility] [address] [address] [address] Brea Causey Cyclos. Cayetanensis Not detected Normal NOT DETECTED [facility] Comment on above: Performed By: #### U CLINT, CMP, LIPID, DBIL, PHOS, MG #### [facility] [address] [address] [address] Brea Causey E. Coli O157 Not Applicable Normal Not Applicable [facility] Comment on above: Performed By: #### U CLINT, CMP, LIPID, DBIL, PHOS, MG #### [facility] [address] [address] [address] Brea Causey E. histolytica Not detected Normal NOT DETECTED The [facility] Comment on above: Performed By: #### U CLINT, CMP, LIPID, DBIL, PHOS, MG #### [facility] [address] [place] [address] Dr. Brea Causey EAEC Not detected Normal NOT DETECTED [facility] Comment on above: Performed By: #### U CLINT, CMP, LIPID, DBIL, PHOS, MG #### [facility] [address] [address] [address] Brea Causey EIEC Not detected Normal NOT DETECTED [facility] Comment on above: Performed By: #### U CLINT, CMP, LIPID, DBIL, PHOS, MG #### [facility] [address] [address] [address] Brea Causey EPEC Not detected Normal NOT DETECTED [facility] Comment on above: Performed By: #### U CLINT, CMP, LIPID, DBIL, PHOS, MG #### [facility] [address] [address] [address] Brea Causey ETEC Not detected Normal NOT DETECTED [facility] Comment on above: Performed By: #### U CLINT, CMP, LIPID, DBIL, PHOS, MG #### [facility] [address] [address] [address] Brea Tolbert Lamblia Not detected Normal NOT DETECTED [facility] Comment on above: Performed By: #### U CLINT, CMP, LIPID, DBIL, PHOS, MG #### [facility] [address] [address] [address] Brea LEZAMA CONTROLS PASSED Normal [facility] Comment on above: Performed By: #### U CLINT, CMP, LIPID, DBIL, PHOS, MG #### [facility] [address] [address] [address] Brea [facility] HEADER GI PANEL BACTERIA Normal T [facility] Comment on above: Performed By: #### U CLINT, CMP, LIPID, DBIL, PHOS, MG #### [facility] [address] [address] [address] Brea PINTO ECOLI GI PANEL DIARRHEAGENIC E.COLI / SHIGELLA Normal [facility] Comment on above: Performed By: #### U CLINT, CMP, LIPID, DBIL, PHOS, MG #### [facility] [address] [address] [address] Brea PINTO INFO SEE BELOW [facility] Comment on above: Result Comment: EAEC - Enteroaggregative E. Coli EPEC- Enteropathogenic E. Coli ETEC- Enterotoxigenic E. Coli lt/st STEC- Shigella-like toxin-producing E. Coli stx1/stx2 EIEC- Shigella/Enteroinvasive E. Coli Performed By: #### U CLINT, CMP, LIPID, DBIL, PHOS, MG #### [facility] [address] [address] [address] Brea PINTO PARASITES GI PANEL PARASITES Normal [facility] Comment on above: Performed By: #### U CLINT, CMP, LIPID, DBIL, PHOS, MG #### [facility] [address] [address] [address] Brea Causey [facility] VIRUS GI PANEL VIRUSES Normal The [facility] Comment on above: Performed By: #### U CLINT, CMP, LIPID, DBIL, PHOS, MG #### [facility] [address] [address] [address] Brea Causey Norovirus GI/GII Not detected Normal NOT DETECTED [facility] Comment on above: Performed By: #### U CLINT, CMP, LIPID, DBIL, PHOS, MG #### [facility] [address] [address] [address] Brea Butcher Shigelloides Not detected Normal NOT DETECTED The [facility] Comment on above: Performed By: #### U CLINT, CMP, LIPID, DBIL, PHOS, MG #### [facility] [address] [place] [address] Dr. Brea Causey Rotavirus A Not detected Normal NOT DETECTED [facility] Comment on above: Performed By: #### U CLINT, CMP, LIPID, DBIL, PHOS, MG #### [facility] [address] [place] [address] Dr. Brea Causey Salmonella Not detected Normal NOT DETECTED [facility] Comment on above: Performed By: #### U CLINT, CMP, LIPID, DBIL, PHOS, MG #### [facility] [address] [place] [address] Dr. Brea Causey Sapovirus Not detected Normal NOT DETECTED [facility] Comment on above: Performed By: #### U CLINT, CMP, LIPID, DBIL, PHOS, MG #### [facility] [address] [place] [address] Dr. Brea Causey STEC Not detected Normal NOT DETECTED [facility] Comment on above: Performed By: #### U CLINT, CMP, LIPID, DBIL, PHOS, MG #### [facility] [address] [address] [address] Brea Causey Vibrio Not detected Normal NOT DETECTED [facility] Comment on above: Performed By: #### U CLINT, CMP, LIPID, DBIL, PHOS, MG #### [facility] [address] [place] [address] Dr. Brea Causey Vibrio Cholera Not detected Normal NOT DETECTED [facility] Comment on above: Performed By: #### U CLINT, CMP, LIPID, DBIL, PHOS, MG #### [facility] [address] [place] [address] Dr. Brea Causey Y. Enterocolitica Not detected Normal NOT DETECTED [facility] Comment on above: Performed By: #### U CLINT, CMP, LIPID, DBIL, PHOS, MG #### [facility] [address] [place] [address] Dr. Brea Causey PROF 14(COMP METB)on 022 Albumin [Mass/Vol] 4.0 g/dL Normal 3.4-5.0 [facility] Comment on above: Performed By: #### C BC #### [facility] [address] [place] [address] Dr. Brea Causey Albumin/Globulin [Mass ratio] 1.3 {ratio} Normal [facility] Comment on above: Performed By: #### C BC #### [facility] [address] [place] [address] Dr. Brea Causey ALP [Catalytic activity/Vol] 142 U/L Critically high 46-116 [facility] Comment on above: Performed By: #### C BC #### [facility] [address] [place] [address] Dr. Brea Causey ALT [Catalytic activity/Vol] 39 U/L Normal 16-63 [facility] Comment on above: Performed By: #### C BC #### [facility] [address] [place] [address] Dr. Brea Causey Anion gap [Moles/Vol] 13.6 mmol/L Normal [facility] Comment on above: Performed By: #### C BC #### [facility] [address] [place] [address] Dr. Brea Causey AST [Catalytic activity/Vol] 23 U/L Normal 15-37 [facility] Comment on above: Performed By: #### C BC #### [facility] [address] [place] [address] Dr. Brea Causey Bilirubin [Mass/Vol] 0.4 mg/dL Normal 0.2-1.0 [facility] Comment on above: Performed By: #### C BC #### [facility] [address] [place] [address] Dr. Brea Causey Calcium [Mass/Vol] 8.4 mg/dL Critically low 8.5-10.1 [facility] Comment on above: Performed By: #### C BC #### [facility] [address] [place] [address] Dr. Brea Causey Chloride [Moles/Vol] 97 mmol/L Critically low 98-107 [facility] Comment on above: Performed By: #### C BC #### [facility] [address] [place] [address] Dr. Brea Causey CO2 [Moles/Vol] 26.1 mmol/L Normal 21.0-32.[address] [facility] Comment on above: Performed By: #### C BC #### [facility] [address] [place] [address] Dr. Brea Causey Creatinine [Mass/Vol] 1.21 mg/dL Normal 0.70-1.30 [facility] Comment on above: Performed By: #### C BC #### [facility] [address] [place] [address] Dr. Brea Causey EGFR-AF BULGARIAN >60 Normal >=[address] [facility] Comment on above: Performed By: #### C BC #### [facility] [address] [place] [address] Dr. Brea Causey EGFR-NON AF BULGARIAN 59 mL/min/1.73m2 Critically low >=60 [facility] Comment on above: Performed By: #### C BC #### [facility] [address] [place] [address] Dr. Brea Causey Globulin (S) [Mass/Vol] 3.2 g/dL Normal [facility] Comment on above: Performed By: #### C BC #### [facility] [address] [address] [address] Brea Causey Glucose [Mass/Vol] 227 mg/dL Critically high 74-106 T [facility] Comment on above: Performed By: #### C BC #### [facility] [address] [address] [address] Brea Causey Potassium [Moles/Vol] 4.7 mmol/L Normal 3.5-5.1 [facility] Comment on above: Performed By: #### C BC #### [facility] [address] [address] [address] Brea Causey Protein [Mass/Vol] 7.2 g/dL Normal 6.4-8.2 [facility] Comment on above: Performed By: #### C BC #### [facility] [address] [address] [address] Brea Causey Sodium [Moles/Vol] 132 mmol/L Critically low 136-145 Th [facility] Comment on above: Performed By: #### C BC #### [facility] [address] [address] [address] Brea Causey Urea nitrogen [Mass/Vol] 12.0 mg/dL Normal 7.0-18.0 [facility] Comment on above: Performed By: #### C BC #### [facility] [address] [address] [address] Brea Causey Urea nitrogen/Creatinine [Mass ratio] 9.9 mg/mg Normal [facility] Comment on above: Performed By: #### C BC #### [facility] [address] [address] [address] Brea Causey CBC W/DIFFon 10-31-2021 ABS IMM GRANS 0.1 10*3/uL Normal 0.0-0.2 [facility] Comment on above: Performed By: #### 4 5506, 02901, 27986, 74731, 44640, 08175 #### [facility] [address] [place] [address], [facility] ABS NEUTROPHILS 5.9 10*3/uL Normal 1.6-7.6 [facility] Comment on above: Performed By: #### 4 5506, 88087, 16799, 65360, 51868, 12665 #### [facility] [address] [place] [address], [facility] Basophils (Bld) [#/Vol] 0.0 10*3/uL Normal 0.0-0.2 [facility] Comment on above: Performed By: #### 4 5506, 27648, 44711, 15366, 57062, 42554 #### [facility] [address] [place] [address], [facility] Basophils/100 WBC (Bld) 0.3 % Normal 0.0-1.0 [facility] Comment on above: Performed By: #### 4 5506, 83478, 52649, 92846, 81035, 33416 #### [facility] [address] [place] [address], [facility] Eosinophils (Bld) [#/Vol] 0.2 10*3/uL Normal 0.0-0.5 [facility] Comment on above: Performed By: #### 4 5506, 65570, 08506, 52391, 87230, 91634 #### [facility] [address] [place] [address], [facility] Eosinophils/100 WBC (Bld) 2.3 % Normal 0.0-6.0 [facility] Comment on above: Performed By: #### 4 5506, 38124, 19257, 59762, 25178, 16977 #### [facility] [address] [place] [address], [facility] Erythrocyte distribution width (RBC) [Ratio] 13.4 % Normal 11.5-15.0 [facility] Comment on above: Performed By: #### 4 5506, 62944, 38398, 94599, 16356, 78381 #### [facility] [address] [facility]. [address] Hematocrit (Bld) [Volume fraction] 36.1 % Low 39.0-50.0 [facility] Comment on above: Performed By: #### 4 5506, 08343, 59497, 13844, 26304, 91161 #### [facility] [address] [facility]. [address] Hemoglobin (Bld) [Mass/Vol] 11.9 g/dL Low 13.0-17.0 [facility] Comment on above: Performed By: #### 4 5506, 35483, 32383, 99110, 62307, 76329 #### [facility] [address] [facility]. [address] IMMATURE GRANS 0.7 % Normal 0.0-1.0 [facility] Comment on above: Performed By: #### 4 5506, 92456, 68045, 91960, 94680, 59886 #### [facility] [address] [facility]. [address] Lymphocytes (Bld) [#/Vol] 0.9 10*3/uL Low 1.2-4.0 [facility] Comment on above: Performed By: #### 4 5506, 55926, 24525, 84249, 22257, 69875 #### [facility] [address] [facility]. [address] Lymphocytes/100 WBC (Bld) 12.1 % Low 20.0-45.0 [facility] Comment on above: Performed By: #### 4 5506, 48851, 57426, 88906, 79463, 16853 #### [facility] [address] MCH (RBC) [Entitic mass] 29.3 pg Normal 27.0-33.0 [facility] Comment on above: Performed By: #### 4 5506, 90537, 01716, 62105, 10842, 15352 #### [facility] [address] MCHC (RBC) [Mass/Vol] 33.0 g/dL Normal 32.0-35.0 [facility] Comment on above: Performed By: #### 4 5506, 64085, 36052, 63702, 70856, 95131 #### [facility] [address] MCV (RBC) [Entitic vol] 88.9 fL Normal 82.0-98.0 [facility] Comment on above: Performed By: #### 4 5506, 92762, 98485, 64288, 84915, 52927 #### [facility] [address] Monocytes (Bld) [#/Vol] 0.6 10*3/uL Normal 0.1-1.0 [facility] Comment on above: Performed By: #### 4 5506, 90533, 14526, 14336, 21384, 50754 #### [facility] [address] [facility] MONOS 8.3 % Normal 5.0-12.0 [facility] Comment on above: Performed By: #### 4 5506, 76309, 07381, 64988, 92585, 44141 #### [facility] [address] [facility] Neutrophils/100 WBC (Bld) 76.3 % High 40.0-72.0 [facility] Comment on above: Performed By: #### 4 5506, 63884, 87004, 31201, 93934, 95309 #### [facility] [address] Nucleated RBC/100 WBC (Bld) [Ratio] 0 % Normal 0-0 [facility] Comment on above: Performed By: #### 4 5506, 10613, 82637, 75809, 68938, 46883 #### [facility] [address] [place] [address], [facility] PLAT CNT 260 10*3/uL Normal 150-400 [facility] Comment on above: Performed By: #### 4 5506, 88120, 72895, 15601, 28734, 20301 #### [facility] [address] [place] [address], [facility] RBC (Bld) [#/Vol] 4.06 10*6/uL Low 4.20-5.70 [facility] Comment on above: Performed By: #### 4 5506, 31807, 72849, 48036, 02580, 50513 #### [facility] [address] [place] [address], [facility] WBC (Bld) [#/Vol] 7.68 10*3/uL Normal 4.00-10.60 [facility] Comment on above: Performed By: #### 4 5506, 58660, 92419, 62329, 06463, 78600 #### [facility] [address] [facility] [address] COMP METABOLIC PANELon 10-31 Albumin [Mass/Vol] 4.4 g/dL Normal 3.5-5.7 [facility] Comment on above: Performed By: #### 4 5506, 20570, 68910, 30066, 35326, 02740 #### [facility] [address] [place] [address], [facility] ALKALINE PHOSPH 132 IU/L High 34-104 [facility] Comment on above: Performed By: #### 4 5506, 40955, 23469, 40906, 62996, 77170 #### [facility] [address] [place] [address], [facility] ALT [Catalytic activity/Vol] 26 U/L Normal 7-52 [facility] Comment on above: Performed By: #### 4 5506, 80360, 82241, 24556, 05358, 22932 #### [facility] [address] [place] [address], [place] AST [Catalytic activity/Vol] 17 U/L Normal 13-39 [facility] Comment on above: Performed By: #### 4 5506, 85943, 08342, 67254, 22711, 75848 #### [facility] [address] [place] [address], [place] Bilirubin [Mass/Vol] 0.4 mg/dL Normal 0.3-1.0 [facility] Comment on above: Performed By: #### 4 5506, 29871, 13791, 54689, 49224, 88190 #### [facility] [address] [place] [address], [place] Calcium [Mass/Vol] 8.6 mg/dL Normal 8.6-10.3 [facility] Comment on above: Performed By: #### 4 5506, 10955, 49198, 54765, 73277, 02177 #### [facility] [address] [place] [address], [place] Chloride [Moles/Vol] 97 mmol/L Low 98-107 [facility] Comment on above: Performed By: #### 4 5506, 68849, 58030, 28962, 83516, 21920 #### [facility] [address] [place] [address], [place] CO2 [Moles/Vol] 26 mmol/L Normal 21-31 [facility] Comment on above: Performed By: #### 4 5506, 77909, 84889, 97509, 90088, 61724 #### [facility] [address] [place] [address], [place] Creatinine [Mass/Vol] 1.04 mg/dL Normal 0.70-1.30 [facility] Comment on above: Performed By: #### 4 5506, 35910, 65356, 50618, 07142, 66051 #### [facility] [address] [place] [address], [place] GFR/1.73 sq M.predicted among blacks MDRD (S/P/Bld) [Vol rate/Area] mL/min/{1.73_m2} Normal >60 [facility] Comment on above: Performed By: #### 4 5506, 35768, 44410, 98512, 11623, 59448 #### [facility] [address] [place] [address], [place] GFR/1.73 sq M.predicted among non-blacks MDRD (S/P/Bld) [Vol rate/Area] mL/min/{1.73_m2} Normal >60 [facility] Comment on above: Performed By: #### 4 5506, 35718, 74176, 39425, 32344, 26433 #### [facility] [address] [place] [address], [place] Glucose [Mass/Vol] 158 mg/dL High 70-100 [facility] Comment on above: Performed By: #### 4 5506, 70127, 74704, 24349, 08368, 77342 #### [facility] [address] [place] [address], [place] Potassium [Moles/Vol] 4.4 mmol/L Normal 3.5-5.1 [facility] Comment on above: Performed By: #### 4 5506, 71210, 22080, 80282, 33156, 31621 #### [facility] [address] [place] [address], [place] Protein [Mass/Vol] 6.6 g/dL Normal 6.0-8.3 [facility] Comment on above: Performed By: #### 4 5506, 64324, 48667, 94872, 50800, 09343 #### [facility] [address] [place] [address], [facility] Sodium [Moles/Vol] 131 mmol/L Low 136-145 [facility] Comment on above: Performed By: #### 4 5506, 25344, 49747, 05542, 30468, 83191 #### [facility] [address] [place] [address], [facility] Urea nitrogen [Mass/Vol] 15 mg/dL Normal 7-25 [facility] Comment on above: Performed By: #### 4 5506, 76481, 72418, 23590, 36795, 95166 #### [facility] [address] [place] [address], [facility] DIRECT BILIon 10-31-2021 Bilirubin.direct [Mass/Vol] 0.1 mg/dL Normal 0.0-0.2 [facility] Comment on above: Performed By: #### 4 5506, 80560, 29903, 27342, 37362, 77470 #### [facility] [address] [place] [address], [facility] LIPID PROFILEon 10-31-2021 Cholesterol [Mass/Vol] 70 mg/dL Low 120-200 Th [facility] Comment on above: Result Comment: CHOL ESTEROL REFERENCE RANGE: 20 YEARS AND OLDER CARDIOVASCULAR RISK Less than 200 mg/dl Low Risk 200 to 239 mg/dl Borderline Risk 240 mg/dl and greater High Risk Performed By: #### 4 5506, 69469, 52936, 74490, 08855, 77293 #### [facility] [address] [place] [address], [facility] Cholesterol in HDL [Mass/Vol] 35 mg/dL Normal 23-92 [facility] Comment on above: Result Comment: Slig ht variation in normal range could be due to gender and/or age. HDL CHOLESTEROL REFERENCE RANGE: 20 years and older Cardiovascular Risk > or =60 mg/dL Desirable 40 TO 59 mg/dL Low Risk <40 mg/dL High Risk Performed By: #### 4 5506, 30840, 70748, 91917, 06872, 84335 #### [facility] [address] [place] [address], [facility] Cholesterol in LDL [Mass/Vol] 20 mg/dL Normal 0-130 [facility] Comment on above: Result Comment: LDL IS A CALCULATION LDL IS ONLY VALID IF THE TRIG IS LESS THAN 400. Performed By: #### 4 5506, 42315, 47971, 53383, 59235, 83769 #### [facility] [address] [place] [address], [facility] Cholesterol.total/Chol esterol in HDL [Mass ratio] 2.0 {ratio} Normal .0-4.5 [facility] Comment on above: Performed By: #### 4 5506, 22894, 57478, 20404, 99997, 62593 #### [facility] [address] [place] [address], [facility] NON-HDL CHOLESTEROL 35 mg/dL Normal [facility] Comment on above: Performed By: #### 4 5506, 53923, 11385, 97296, 97227, 87900 #### [facility] [address] [place] [address], [facility] Triglyceride [Mass/Vol] 73 mg/dL Normal 40-149 [facility] Comment on above: Result Comment: TRIG LYCERIDE REFERENCE RANGE: 20 YEARS AND OLDER CARDIOVASCULAR RISK LESS THAN 150 mg/dl LOW RISK 150 TO 199 mg/dl BORDERLINE RISK 200 mg/dl AND GREATER HIGH RISK Performed By: #### 4 5506, 96223, 63681, 75093, 99407, 57338 #### [facility] [address] [place] [address], [facility] VLDL CHOL 15 mg/dL Normal 0-40 [facility] Comment on above: Performed By: #### 4 5506, 71027, 79800, 64395, 73798, 08178 #### [facility] [address] [place] [address], [facility] MAGNESIUM BLOODon 06-22-2022 Magnesium [Mass/Vol] 1.1 mg/dL Critically low 1.9-2.7 [facility] Comment on above: Performed By: #### 4 5506, 96003, 22635, 71233, 22005, 45964 #### [facility] [address] [place] [address], [facility] PHOSPHORUS BLOODon Phosphate [Mass/Vol] 3.0 mg/dL Normal 2.5-5.0 [facility] Comment on above: Performed By: #### 4 5506, 62522, 34002, 83510, 93808, 88331 #### [facility] [address] [place] [address], [facility] PROSPERAon 10-31-2021 PROSPERA KIT Results to be mailed directly to physician's office by reference lab. Normal [facility] Comment on above: Result Comment: Test performed by [id number] [place] [address] Specimen collected for transplant patient and sent to [facility] per Dr instructions. No charge. No result expected. For billing and tracking purposes only. Performed By: #### 4 5506, 97793, 11474, 61300, 03427, 11488 #### [facility] [address] RESULT Results to be mailed directly to physician's office by reference lab. Normal [facility] Comment on above: Performed By: #### 4 5506, 62077, 45912, 00607, 12498, 58348 #### [facility] [address] [place] [address], [facility] TACROLIMUSon 10-31-2021 Tacrolimus (Bld) [Mass/Vol] 7.6 ng/mL Normal 5.0-20.0 [facility] Comment on above: Result Comment: The [employer] Tacrolimus assay is a delayed one-step immunoassay for the quantitative determination of tacrolimus in human whole blood using the chemiluminescent microparticle immunoassay (CMIA) technology with flexible assay protocols, referred to as Chemiflex. Performed By: #### 4 5506, 61693, 34584, 32450, 10022, 94420 #### [facility] [address] [facility]. [address] URIC ACID BLOODon 10-31-2021 Urate [Mass/Vol] 7.8 mg/dL High 4.4-7.6 [facility] Comment on above: Performed By: #### 4 5506, 96096, 54351, 80268, 13186, 13128 #### [facility] [address] [facility]. [address] NM PARATHYROID WITH SPECT AN D CTon 07-24-2021 NM PARATHYROID WITH SPECT AND CT [facility] Department of Radiology [address] [place] [id number] Patient Name: ROGER KERR : 1950 Sex: M Age: Race: White Pt. Location: Patient Status: D Ordered Date: 06/26/2021 8:40:00 AM Completed Date: 07/24/2021 01:21 PM Requesting Provider: SHAINA SUBRAMANIAN Attending Provider: SHAINA SUBRAAMNIAN Report Copy To: JERICHO MCCARTHY Signs & Symptoms: E21.3 Hyperparathyroidism, unspecified I10 History: Sammi NPC Req. per [place] A/B for CPT 46359 *SLA Comments: , , , Ordering Provider [...] SPECT. Electronically signed: Nan Allen. Transcribed by: [email or web address], User Resident: Electronically Signed by: NAN ALLEN @ 07/27/2021 12:13 PM Normal [facility] Comment on above: Order Comment: , , = ========= , Ordering Provider - SHAINA SUBRAMANIAN MD , CBC W/DIFFon 06-22-2021 ABS IMM GRANS 0.1 10*3/uL Normal 0.0-0.2 [facility] Comment on above: Performed By: #### 4 5506, 66753, 17368, 24430, 89304, 04196 #### [facility] [address] [place] [address], [facility] ABS NEUTROPHILS 4.7 10*3/uL Normal 1.6-7.6 [facility] Comment on above: Performed By: #### 4 5506, 04832, 72298, 95253, 44669, 09000 #### [facility] [address] [place] [address], [facility] Basophils (Bld) [#/Vol] 0.0 10*3/uL Normal 0.0-0.2 [facility] Comment on above: Performed By: #### 4 5506, 37588, 89591, 90473, 12383, 97978 #### [facility] [address] [place] [address], [facility] Basophils/100 WBC (Bld) 0.6 % Normal 0.0-1.0 [facility] Comment on above: Performed By: #### 4 5506, 08365, 91495, 33611, 71218, 42512 #### [facility] [address] [place] [address], [facility] Eosinophils (Bld) [#/Vol] 0.2 10*3/uL Normal 0.0-0.5 [facility] Comment on above: Performed By: #### 4 5506, 44115, 29343, 47163, 03106, 19245 #### [facility] [address] [place] [address], [facility] Eosinophils/100 WBC (Bld) 2.5 % Normal 0.0-6.0 [facility] Comment on above: Performed By: #### 4 5506, 33254, 84051, 34062, 62733, 36316 #### [facility] [address] [place] [address], [facility] Erythrocyte distribution width (RBC) [Ratio] 13.6 % Normal 11.5-15.0 [facility] Comment on above: Performed By: #### 4 5506, 55696, 88548, 80610, 75049, 99104 #### [facility] [address] [facility]. [address] Hematocrit (Bld) [Volume fraction] 36.3 % Low 39.0-50.0 [facility] Comment on above: Performed By: #### 4 5506, 10378, 23174, 40182, 02106, 72899 #### [facility] [address] [facility] [place] [address] Hemoglobin (Bld) [Mass/Vol] 11.7 g/dL Low 13.0-17.0 [facility] Comment on above: Performed By: #### 4 5506, 05559, 31108, 49420, 27586, 14802 #### [facility] [address] [facility]. [address] IMMATURE GRANS 0.8 % Normal 0.0-1.0 [facility] Comment on above: Performed By: #### 4 5506, 55574, 51032, 70240, 37130, 38222 #### [facility] [address] [facility]. [address] Lymphocytes (Bld) [#/Vol] 0.9 10*3/uL Low 1.2-4.0 [facility] Comment on above: Performed By: #### 4 5506, 24085, 87111, 26992, 77809, 93115 #### [facility] [address] [facility]. [address] Lymphocytes/100 WBC (Bld) 13.6 % Low 20.0-45.0 [facility] Comment on above: Performed By: #### 4 5506, 85567, 17265, 24320, 65909, 06062 #### [facility] [address] MCH (RBC) [Entitic mass] 28.6 pg Normal 27.0-33.0 [facility] Comment on above: Performed By: #### 4 5506, 93812, 30302, 05705, 24794, 40557 #### [facility] [address] [place] [address], [facility] MCHC (RBC) [Mass/Vol] 32.2 g/dL Normal 32.0-35.0 [facility] Comment on above: Performed By: #### 4 5506, 78333, 29682, 73133, 77831, 62468 #### [facility] [address] [place] [address], [facility] MCV (RBC) [Entitic vol] 88.8 fL Normal 82.0-98.0 [facility] Comment on above: Performed By: #### 4 5506, 47762, 55718, 77686, 09327, 66301 #### [facility] [address] [place] [address], [facility] Monocytes (Bld) [#/Vol] 0.6 10*3/uL Normal 0.1-1.0 [facility] Comment on above: Performed By: #### 4 5506, 05585, 39311, 50753, 86305, 71066 #### [facility] [address] [facility] [place] [address], [facility] MONOS 9.6 % Normal 5.0-12.0 [facility] Comment on above: Performed By: #### 4 5506, 01435, 88889, 50568, 94603, 29669 #### [facility] [address] [place] [address], [facility] Neutrophils/100 WBC (Bld) 72.9 % High 40.0-72.0 [facility] Comment on above: Performed By: #### 4 5506, 90513, 51386, 78162, 19889, 73196 #### [facility] [address] [place] [address], [facility] Nucleated RBC/100 WBC (Bld) [Ratio] 0 % Normal 0-0 [facility] Comment on above: Performed By: #### 4 5506, 79921, 99203, 12055, 30534, 92592 #### [facility] [address] [place] [address], [facility] PLAT CNT 263 10*3/uL Normal 150-400 [facility] Comment on above: Performed By: #### 4 5506, 56911, 07710, 73538, 39953, 25987 #### [facility] [address] [place] [address], [facility] RBC (Bld) [#/Vol] 4.09 10*6/uL Low 4.20-5.70 [facility] Comment on above: Performed By: #### 4 5506, 45711, 17151, 82481, 09762, 01913 #### [facility] [address] [place] [address], [facility] WBC (Bld) [#/Vol] 6.45 10*3/uL Normal 4.00-10.60 [facility] Comment on above: Performed By: #### 4 5506, 38734, 93079, 76422, 40944, 65413 #### [facility] [address] [facility] [place] [address], [facility] COMP METABOLIC PANELon 06-22 Albumin [Mass/Vol] 4.3 g/dL Normal 3.5-5.7 [facility] Comment on above: Performed By: #### 4 5506, 33338, 20398, 71412, 29620, 16314 #### [facility] [address] [place] [address], [facility] ALKALINE PHOSPH 143 IU/L High 34-104 [facility] Comment on above: Performed By: #### 4 5506, 62286, 81059, 01194, 85887, 52450 #### [facility] [address] ALT [Catalytic activity/Vol] 18 U/L Normal 7-52 [facility] Comment on above: Performed By: #### 4 5506, 86869, 33430, 01361, 19709, 08795 #### [facility] [address] [place] [address], [place] AST [Catalytic activity/Vol] 15 U/L Normal 13-39 [facility] Comment on above: Performed By: #### 4 5506, 83895, 10784, 16385, 45182, 09361 #### [facility] [address] [place] [address], [place] Bilirubin [Mass/Vol] 0.3 mg/dL Normal 0.3-1.0 [facility] Comment on above: Performed By: #### 4 5506, 37351, 16163, 60553, 30872, 19347 #### [facility] [address] [place] [address], [place] Calcium [Mass/Vol] 10.6 mg/dL High 8.6-10.3 [facility] Comment on above: Performed By: #### 4 5506, 41653, 10479, 55242, 80143, 37624 #### [facility] [address] [place] [address], [place] Chloride [Moles/Vol] 102 mmol/L Normal 98-107 [facility] Comment on above: Performed By: #### 4 5506, 69454, 81562, 31975, 65385, 47819 #### [facility] [address] [place] [address], [place] CO2 [Moles/Vol] 24 mmol/L Normal 21-31 [facility] Comment on above: Performed By: #### 4 5506, 21652, 16791, 67782, 60301, 52062 #### [facility] [address] [place] [address], [place] Creatinine [Mass/Vol] 1.04 mg/dL Normal 0.70-1.30 [facility] Comment on above: Performed By: #### 4 5506, 65466, 97280, 69414, 56259, 91467 #### [facility] [address] [place] [address], [place] GFR/1.73 sq M.predicted among blacks MDRD (S/P/Bld) [Vol rate/Area] mL/min/{1.73_m2} Normal >60 [facility] Comment on above: Performed By: #### 4 5506, 51938, 08207, 79613, 71172, 78141 #### [facility] [address] [place] [address], [place] GFR/1.73 sq M.predicted among non-blacks MDRD (S/P/Bld) [Vol rate/Area] mL/min/{1.73_m2} Normal >60 [facility] Comment on above: Performed By: #### 4 5506, 22679, 39628, 69998, 57341, 22006 #### [facility] [address] [place] [address], [place] Glucose [Mass/Vol] 167 mg/dL High 70-100 [facility] Comment on above: Performed By: #### 4 5506, 62825, 50409, 95066, 81978, 82720 #### [facility] [address] [place] [address], [place] Potassium [Moles/Vol] 5.3 mmol/L High 3.5-5.1 [facility] Comment on above: Performed By: #### 4 5506, 43765, 66372, 65153, 90529, 55527 #### [facility] [address] [place] [address], [place] Protein [Mass/Vol] 6.5 g/dL Normal 6.0-8.3 [facility] Comment on above: Performed By: #### 4 5506, 13355, 29257, 88737, 23794, 68100 #### [facility] [address] [place] [address], [facility] Sodium [Moles/Vol] 134 mmol/L Low 136-145 [facility] Comment on above: Performed By: #### 4 5506, 53703, 42687, 84271, 44313, 22905 #### [facility] [address] [place] [address], [facility] Urea nitrogen [Mass/Vol] 11 mg/dL Normal 7-25 [facility] Comment on above: Performed By: #### 4 5506, 69201, 91812, 86387, 09194, 20778 #### [facility] [address] [place] [address], [facility] DIRECT BILIon 06-22-2021 Bilirubin.direct [Mass/Vol] 0.1 mg/dL Normal 0.0-0.2 [facility] Comment on above: Performed By: #### 4 5506, 41310, 32118, 67208, 96189, 92057 #### [facility] [address] [place] [address], [facility] LIPID PROFILEon 06-22-2021 Cholesterol [Mass/Vol] 77 mg/dL Low 120-200 Th e [facility] Comment on above: Result Comment: CHOL ESTEROL REFERENCE RANGE: 20 YEARS AND OLDER CARDIOVASCULAR RISK Less than 200 mg/dl Low Risk 200 to 239 mg/dl Borderline Risk 240 mg/dl and greater High Risk Performed By: #### 4 5506, 99342, 26491, 50166, 33209, 33293 #### [facility] [address] [place] [address], [facility] Cholesterol in HDL [Mass/Vol] 40 mg/dL Normal 23-92 [facility] Comment on above: Result Comment: Slig ht variation in normal range could be due to gender and/or age. HDL CHOLESTEROL REFERENCE RANGE: 20 years and older Cardiovascular Risk > or =60 mg/dL Desirable 40 TO 59 mg/dL Low Risk <40 mg/dL High Risk Performed By: #### 4 5506, 48959, 42355, 37107, 81731, 74553 #### [facility] [address] [place] [address], [facility] Cholesterol in LDL [Mass/Vol] 24 mg/dL Normal 0-130 [facility] Comment on above: Result Comment: LDL IS A CALCULATION LDL IS ONLY VALID IF THE TRIG IS LESS THAN 400. Performed By: #### 4 5506, 50468, 32378, 78887, 64829, 68416 #### [facility] [address] [place] [address], [facility] Cholesterol.total/Chol esterol in HDL [Mass ratio] 1.9 {ratio} Normal .0-4.5 [facility] Comment on above: Performed By: #### 4 5506, 01901, 86998, 88481, 47748, 32156 #### [facility] [address] [place] [address], [facility] NON-HDL CHOLESTEROL 37 mg/dL Normal [facility] Comment on above: Performed By: #### 4 5506, 60645, 96109, 93794, 25683, 05224 #### [facility] [address] [facility] [place] [address], [facility] Triglyceride [Mass/Vol] 63 mg/dL Normal 40-149 [facility] Comment on above: Result Comment: TRIG LYCERIDE REFERENCE RANGE: 20 YEARS AND OLDER CARDIOVASCULAR RISK LESS THAN 150 mg/dl LOW RISK 150 TO 199 mg/dl BORDERLINE RISK 200 mg/dl AND GREATER HIGH RISK Performed By: #### 4 5506, 20393, 13760, 86705, 46127, 49515 #### [facility] [address] [place] [address], [facility] VLDL CHOL 13 mg/dL Normal 0-40 [facility] Comment on above: Performed By: #### 4 5506, 99135, 72364, 40624, 00523, 65839 #### [facility] [address] [facility] [place] [address], [facility] MAGNESIUM BLOODon 06-22-2021 Magnesium [Mass/Vol] 1.4 mg/dL Low 1.9-2.7 [facility] Comment on above: Performed By: #### 4 5506, 96076, 71610, 18776, 27117, 20137 #### [facility] [address] [place] [address], [facility] PHOSPHORUS BLOODon Phosphate [Mass/Vol] 2.5 mg/dL Normal 2.5-5.0 [facility] Comment on above: Performed By: #### 4 5506, 45201, 48434, 12458, 42210, 92654 #### [facility] [address] [facility] [place] [address], [facility] PTH INTACTon 06-22-2021 PTH INTACT 155 pg/mL High 12-88 [facility] Comment on above: Performed By: #### 4 5506, 91999, 81143, 42357, 58525, 15897 #### [facility] [address] [facility] [place] [address], [facility] TACROLIMUSon 06-22-2021 Tacrolimus (Bld) [Mass/Vol] 21.0 ng/mL High 5.0-20.0 [facility] Comment on above: Result Comment: The [employer] Tacrolimus assay is a delayed one-step immunoassay for the quantitative determination of tacrolimus in human whole blood using the chemiluminescent microparticle immunoassay (CMIA) technology with flexible assay protocols, referred to as Chemiflex. Performed By: #### 4 5506, 56016, 63957, 89554, 32429, 36776 #### [facility] [address] [place] [address], [facility] URIC ACID BLOODon 06-22-2021 Urate [Mass/Vol] 7.9 mg/dL High 4.4-7.6 [facility] Comment on above: Performed By: #### 4 5506, 37714, 29306, 47268, 51670, 59131 #### [facility] [address] CBC W/DIFFon 04-19-2021 ABS IMM GRANS 0.1 10*3/uL Normal 0.0-0.2 [facility] Comment on above: Performed By: #### 4 5506, 02642, 35057, 19194, 74793, 64343 #### [facility] [address] [place] [address], [facility] ABS NEUTROPHILS 5.2 10*3/uL Normal 1.6-7.6 [facility] Comment on above: Performed By: #### 4 5506, 75140, 75896, 15828, 04757, 84940 #### [facility] [address] [place] [address], [facility] Basophils (Bld) [#/Vol] 0.0 10*3/uL Normal 0.0-0.2 [facility] Comment on above: Performed By: #### 4 5506, 20000, 27096, 56625, 28229, 25376 #### [facility] [address] [place] [address], [facility] Basophils/100 WBC (Bld) 0.4 % Normal 0.0-1.0 [facility] Comment on above: Performed By: #### 4 5506, 48061, 25912, 17804, 43296, 26433 #### [facility] [address] [place] [address], [facility] Eosinophils (Bld) [#/Vol] 0.2 10*3/uL Normal 0.0-0.5 [facility] Comment on above: Performed By: #### 4 5506, 36094, 44538, 86502, 42508, 46054 #### [facility] [address] [place] [address], [facility] Eosinophils/100 WBC (Bld) 2.9 % Normal 0.0-6.0 [facility] Comment on above: Performed By: #### 4 5506, 84171, 19174, 18794, 45277, 15595 #### [facility] [address] [facility] [place]. [address] Erythrocyte distribution width (RBC) [Ratio] 13.3 % Normal 11.5-15.0 [facility] Comment on above: Performed By: #### 4 5506, 61076, 63506, 63680, 02625, 72374 #### [facility] [address] [facility] [place]. [address] Hematocrit (Bld) [Volume fraction] 37.1 % Low 39.0-50.0 [facility] Comment on above: Performed By: #### 4 5506, 45683, 85709, 56789, 55736, 93688 #### [facility] [address] [facility] [address] Hemoglobin (Bld) [Mass/Vol] 11.7 g/dL Low 13.0-17.0 [facility] Comment on above: Performed By: #### 4 5506, 72900, 16448, 38002, 85705, 85182 #### [facility] [address] [facility]. [address] IMMATURE GRANS 0.9 % Normal 0.0-1.0 [facility] Comment on above: Performed By: #### 4 5506, 33026, 23968, 00513, 59737, 58498 #### [facility] [address] [facility]. [address] Lymphocytes (Bld) [#/Vol] 0.9 10*3/uL Low 1.2-4.0 [facility] Comment on above: Performed By: #### 4 5506, 22953, 18384, 12227, 87053, 85679 #### [facility] [address] [place] [address], [facility] Lymphocytes/100 WBC (Bld) 12.5 % Low 20.0-45.0 [facility] Comment on above: Performed By: #### 4 5506, 59384, 51670, 70374, 52236, 51945 #### [facility] [address] [facility] [address] MCH (RBC) [Entitic mass] 29.0 pg Normal 27.0-33.0 [facility] Comment on above: Performed By: #### 4 5506, 26476, 07192, 86718, 73475, 94041 #### [facility] [address] MCHC (RBC) [Mass/Vol] 31.5 g/dL Low 32.0-35.0 [facility] Comment on above: Performed By: #### 4 5506, 29304, 92540, 55364, 48896, 73357 #### [facility] [address] [facility] [address] MCV (RBC) [Entitic vol] 92.1 fL Normal 82.0-98.0 [facility] Comment on above: Performed By: #### 4 5506, 81665, 43616, 70328, 89431, 48575 #### [facility] [address] [facility] [address] Monocytes (Bld) [#/Vol] 0.6 10*3/uL Normal 0.1-1.0 [facility] Comment on above: Performed By: #### 4 5506, 10922, 96287, 45633, 62132, 72443 #### [facility] [address] [facility]. [address] MONOS 8.6 % Normal 5.0-12.0 [facility] Comment on above: Performed By: #### 4 5506, 76757, 68002, 12413, 96391, 50528 #### [facility] [address] Neutrophils/100 WBC (Bld) 74.7 % High 40.0-72.0 [facility] Comment on above: Performed By: #### 4 5506, 87975, 12145, 61310, 70078, 14964 #### [facility] [address] [place] [address], [facility] Nucleated RBC/100 WBC (Bld) [Ratio] 0 % Normal 0-0 [facility] Comment on above: Performed By: #### 4 5506, 23258, 96183, 88914, 91010, 49207 #### [facility] [address] [place] [address], [facility] PLAT CNT 290 10*3/uL Normal 150-400 [facility] Comment on above: Performed By: #### 4 5506, 51249, 93506, 94780, 33558, 28270 #### [facility] [address] [place] [address], [facility] RBC (Bld) [#/Vol] 4.03 10*6/uL Low 4.20-5.70 [facility] Comment on above: Performed By: #### 4 5506, 31497, 50341, 27811, 22968, 20512 #### [facility] [address] [place] [address], [facility] WBC (Bld) [#/Vol] 6.96 10*3/uL Normal 4.00-10.60 [facility] Comment on above: Performed By: #### 4 5506, 46726, 86426, 89317, 41234, 69075 #### [facility] [address] [place] [id number], [facility] COMP METABOLIC PANELon 04-19 Albumin [Mass/Vol] 4.3 g/dL Normal 3.5-5.7 [facility] Comment on above: Performed By: #### 4 5506, 34880, 02472, 62015, 48574, 94979 #### [facility] [address] [place] [address], [facility] ALKALINE PHOSPH 137 IU/L High 34-104 [facility] Comment on above: Performed By: #### 4 5506, 66427, 81790, 60338, 51738, 18986 #### [facility] [address] [place] [address], [place] ALT [Catalytic activity/Vol] 17 U/L Normal 7-52 [facility] Comment on above: Performed By: #### 4 5506, 38070, 67280, 63536, 09743, 67691 #### [facility] [address] [place] [address], [place] AST [Catalytic activity/Vol] 16 U/L Normal 13-39 [facility] Comment on above: Performed By: #### 4 5506, 28209, 23137, 69408, 86016, 38473 #### [facility] [address] [place] [address], [place] Bilirubin [Mass/Vol] 0.4 mg/dL Normal 0.3-1.0 [facility] Comment on above: Performed By: #### 4 5506, 67729, 95034, 78107, 65521, 61253 #### [facility] [address] [place] [address], [place] Calcium [Mass/Vol] 10.5 mg/dL High 8.6-10.3 [facility] Comment on above: Performed By: #### 4 5506, 15946, 87438, 45382, 61846, 54130 #### [facility] [address] [place] [address], [place] Chloride [Moles/Vol] 99 mmol/L Normal 98-107 [facility] Comment on above: Performed By: #### 4 5506, 25726, 39700, 71851, 02846, 78646 #### [facility] [address] [place] [address], [place] CO2 [Moles/Vol] 27 mmol/L Normal 21-31 [facility] Comment on above: Performed By: #### 4 5506, 69449, 62593, 68122, 33861, 43481 #### [facility] [address] [place] [address], [place] Creatinine [Mass/Vol] 1.04 mg/dL Normal 0.70-1.30 [facility] Comment on above: Performed By: #### 4 5506, 25474, 93910, 00510, 10073, 95106 #### [facility] [address] [place] [address], [place] GFR/1.73 sq M.predicted among blacks MDRD (S/P/Bld) [Vol rate/Area] mL/min/{1.73_m2} Normal >60 [facility] Comment on above: Performed By: #### 4 5506, 30163, 44593, 10735, 00046, 11028 #### [facility] [address] [place] [address], [place] GFR/1.73 sq M.predicted among non-blacks MDRD (S/P/Bld) [Vol rate/Area] mL/min/{1.73_m2} Normal >60 [facility] Comment on above: Performed By: #### 4 5506, 65139, 44977, 96382, 92714, 74047 #### [facility] [address] [place] [address], [place] Glucose [Mass/Vol] 139 mg/dL High 70-100 [facility] Comment on above: Performed By: #### 4 5506, 52374, 09098, 02963, 44221, 39620 #### [facility] [address] [place] [address], [place] Potassium [Moles/Vol] 5.1 mmol/L Normal 3.5-5.1 [facility] Comment on above: Performed By: #### 4 5506, 45466, 88601, 88200, 50613, 66976 #### [facility] [address] [place] [address], [facility] Protein [Mass/Vol] 6.5 g/dL Normal 6.0-8.3 [facility] Comment on above: Performed By: #### 4 5506, 50899, 96712, 42245, 10397, 52417 #### [facility] [address] [place] [address], [facility] Sodium [Moles/Vol] 133 mmol/L Low 136-145 [facility] Comment on above: Performed By: #### 4 5506, 46405, 53928, 73670, 67769, 37327 #### [facility] [address] [place] [address], [facility] Urea nitrogen [Mass/Vol] 11 mg/dL Normal 7-25 [facility] Comment on above: Performed By: #### 4 5506, 63316, 75448, 17251, 50213, 64103 #### [facility] [address] [place] [address], [facility] DIRECT BILIon 04-19-2021 Bilirubin.direct [Mass/Vol] 0.1 mg/dL Normal 0.0-0.2 [facility] Comment on above: Performed By: #### 4 5506, 61074, 40360, 42338, 46502, 87134 #### [facility] [address] [place] [address], [facility] LIPID PROFILEon 04-19-2021 Cholesterol [Mass/Vol] 82 mg/dL Low 120-200 [facility] Comment on above: Result Comment: CHOL ESTEROL REFERENCE RANGE: 20 YEARS AND OLDER CARDIOVASCULAR RISK Less than 200 mg/dl Low Risk 200 to 239 mg/dl Borderline Risk 240 mg/dl and greater High Risk Performed By: #### 4 5506, 26025, 51677, 73487, 49668, 48958 #### [facility] [address] [place] [address], [place] Cholesterol in HDL [Mass/Vol] 38 mg/dL Normal 23-92 [facility] Comment on above: Result Comment: Slig ht variation in normal range could be due to gender and/or age. HDL CHOLESTEROL REFERENCE RANGE: 20 years and older Cardiovascular Risk > or =60 mg/dL Desirable 40 TO 59 mg/dL Low Risk <40 mg/dL High Risk Performed By: #### 4 5506, 97444, 61494, 02735, 75092, 01655 #### [facility] [address] [place] [address], [place] Cholesterol in LDL [Mass/Vol] 25 mg/dL Normal 0-130 [facility] Comment on above: Result Comment: LDL IS A CALCULATION LDL IS ONLY VALID IF THE TRIG IS LESS THAN 400. Performed By: #### 4 5506, 57776, 27494, 16911, 26476, 95624 #### [facility] [address] [place] [address], [place] Cholesterol.total/Chol esterol in HDL [Mass ratio] 2.2 {ratio} Normal .0-4.5 [facility] Comment on above: Performed By: #### 4 5506, 63643, 70572, 31159, 40245, 23488 #### [facility] [address] [place] [address], [place] NON-HDL CHOLESTEROL 44 mg/dL Normal [facility] Comment on above: Performed By: #### 4 5506, 75390, 44454, 50685, 88300, 31548 #### [facility] [address] [place] [address], [place] Triglyceride [Mass/Vol] 93 mg/dL Normal 40-149 [facility] Comment on above: Result Comment: TRIG LYCERIDE REFERENCE RANGE: 20 YEARS AND OLDER CARDIOVASCULAR RISK LESS THAN 150 mg/dl LOW RISK 150 TO 199 mg/dl BORDERLINE RISK 200 mg/dl AND GREATER HIGH RISK Performed By: #### 4 5506, 93532, 14132, 55994, 80070, 87607 #### [facility] [address] [place] [address], [facility] VLDL CHOL 19 mg/dL Normal 0-40 [facility] Comment on above: Performed By: #### 4 5506, 52729, 33038, 33990, 29733, 47580 #### [facility] [address] [place] [address], [facility] MAGNESIUM BLOODon 04-19-2021 Magnesium [Mass/Vol] 1.8 mg/dL Low 1.9-2.7 [facility] Comment on above: Performed By: #### 4 5506, 95885, 36397, 19552, 51762, 64189 #### [facility] [address] [place] [address], [facility] PHOSPHORUS BLOODon Phosphate [Mass/Vol] 3.0 mg/dL Normal 2.5-5.0 [facility] Comment on above: Performed By: #### 4 5506, 87678, 07824, 38678, 05798, 68831 #### [facility] [address] PROSPERAon 04-19-2021 PROSPERA KIT Results to be mailed directly to physician's office by reference lab. Normal [facility] Comment on above: Result Comment: Test performed by [id number] [place] [address] No result expected. For billing and tracking purposes only. Specimen collected for transplant patient and sent to [facility] per Dr instructions. No charge. Performed By: #### 4 5506, 21803, 36440, 30610, 44307, 58457 #### [facility] [address] RESULT Results to be mailed directly to physician's office by reference lab. Normal [facility] Comment on above: Performed By: #### 4 5506, 11174, 37206, 34151, 30866, 85527 #### [facility] [address] TACROLIMUSon 04-19-2021 Tacrolimus (Bld) [Mass/Vol] 7.7 ng/mL Normal 5.0-20.0 [facility] Comment on above: Result Comment: The [employer] Tacrolimus assay is a delayed one-step immunoassay for the quantitative determination of tacrolimus in human whole blood using the chemiluminescent microparticle immunoassay (CMIA) technology with flexible assay protocols, referred to as Chemiflex. Performed By: #### 4 5506, 28736, 86958, 86032, 61765, 65598 #### [facility] [address] URIC ACID BLOODon 04-19-2021 Urate [Mass/Vol] 7.9 mg/dL High 4.4-7.6 [facility] Comment on above: Performed By: #### 4 5506, 91172, 51739, 16718, 62712, 94247 #### [facility] [address] CBC W/DIFFon 04-11-2021 ABS IMM GRANS 0.0 10*3/uL Normal 0.0-0.2 [facility] Comment on above: Performed By: #### 4 5506, 84966, 59716, 70034, 02779, 94612 #### [facility] [address] ABS NEUTROPHILS 4.5 10*3/uL Normal 1.6-7.6 [facility] Comment on above: Performed By: #### 4 5506, 33485, 08696, 24590, 84220, 37606 #### [facility] [address] Basophils (Bld) [#/Vol] 0.0 10*3/uL Normal 0.0-0.2 [facility] Comment on above: Performed By: #### 4 5506, 73414, 52670, 59406, 16182, 70178 #### [facility] [address] [place] [address], [facility] Basophils/100 WBC (Bld) 0.5 % Normal 0.0-1.0 [facility] Comment on above: Performed By: #### 4 5506, 39831, 91908, 95217, 52588, 03368 #### [facility] [address] [place] [address], [facility] Eosinophils (Bld) [#/Vol] 0.2 10*3/uL Normal 0.0-0.5 [facility] Comment on above: Performed By: #### 4 5506, 46827, 54060, 37658, 44149, 51723 #### [facility] [address] [place] [address], [facility] Eosinophils/100 WBC (Bld) 3.1 % Normal 0.0-6.0 [facility] Comment on above: Performed By: #### 4 5506, 55624, 55770, 63267, 47471, 62627 #### [facility] [address] [facility] [address], [facility] Erythrocyte distribution width (RBC) [Ratio] 13.4 % Normal 11.5-15.0 [facility] Comment on above: Performed By: #### 4 5506, 65566, 94832, 56290, 16907, 48438 #### [facility] [address] [place] [address], [facility] Hematocrit (Bld) [Volume fraction] 35.5 % Low 39.0-50.0 [facility] Comment on above: Performed By: #### 4 5506, 86313, 18759, 06393, 67552, 33105 #### [facility] [address] [place] [address], [facility] Hemoglobin (Bld) [Mass/Vol] 11.7 g/dL Low 13.0-17.0 [facility] Comment on above: Performed By: #### 4 5506, 17071, 85599, 80226, 27631, 07000 #### [facility] [address] [facility] [place] [address], [facility] IMMATURE GRANS 0.6 % Normal 0.0-1.0 [facility] Comment on above: Performed By: #### 4 5506, 95020, 56119, 86994, 69613, 31753 #### [facility] [address] [facility] [place] [address], [facility] Lymphocytes (Bld) [#/Vol] 0.8 10*3/uL Low 1.2-4.0 [facility] Comment on above: Performed By: #### 4 5506, 29023, 00208, 91327, 72302, 52942 #### [facility] [address] [facility] Lymphocytes/100 WBC (Bld) 12.9 % Low 20.0-45.0 [facility] Comment on above: Performed By: #### 4 5506, 13506, 02744, 71982, 02732, 54641 #### [facility] [address] [facility] [place] [address], [facility] MCH (RBC) [Entitic mass] 29.2 pg Normal 27.0-33.0 [facility] Comment on above: Performed By: #### 4 5506, 13459, 44677, 21954, 49004, 76176 #### [facility] [address] [place] [address], [facility] MCHC (RBC) [Mass/Vol] 33.0 g/dL Normal 32.0-35.0 [facility] Comment on above: Performed By: #### 4 5506, 49146, 24277, 00584, 87825, 51818 #### [facility] [address] [facility] [place] [address], [facility] MCV (RBC) [Entitic vol] 88.5 fL Normal 82.0-98.0 [facility] Comment on above: Performed By: #### 4 5506, 79073, 23874, 28543, 09701, 35020 #### [facility] [address] [place] [address], [facility] Monocytes (Bld) [#/Vol] 0.6 10*3/uL Normal 0.1-1.0 [facility] Comment on above: Performed By: #### 4 5506, 34797, 44735, 56191, 65947, 87052 #### [facility] [address] [facility] [place] MONOS 10.3 % Normal 5.0-12.0 [facility] Comment on above: Performed By: #### 4 5506, 63786, 46240, 55871, 24027, 65213 #### [facility] [address] Neutrophils/100 WBC (Bld) 72.6 % High 40.0-72.0 [facility] Comment on above: Performed By: #### 4 5506, 21941, 01541, 87968, 01295, 52740 #### [facility] [address] [facility] [place] [address], [facility] Nucleated RBC/100 WBC (Bld) [Ratio] 0 % Normal 0-0 [facility] Comment on above: Performed By: #### 4 5506, 19843, 67110, 71658, 63740, 93213 #### [facility] [address] [facility] [place] [address], [facility] PLAT CNT 272 10*3/uL Normal 150-400 [facility] Comment on above: Performed By: #### 4 5506, 84433, 84350, 75819, 61003, 74050 #### [facility] [address] [place] [address], [facility] RBC (Bld) [#/Vol] 4.01 10*6/uL Low 4.20-5.70 [facility] Comment on above: Performed By: #### 4 5506, 06061, 09039, 29781, 81691, 91368 #### [facility] [address] [place] [address], [facility] WBC (Bld) [#/Vol] 6.22 10*3/uL Normal 4.00-10.60 [facility] Comment on above: Performed By: #### 4 5506, 33637, 97994, 28723, 77647, 68960 #### [facility] [address] [place] [address], [facility] COMP METABOLIC PANELon 04-11 Albumin [Mass/Vol] 4.3 g/dL Normal 3.5-5.7 [facility] Comment on above: Performed By: #### 4 5506, 87539, 00800, 98743, 17231, 28070 #### [facility] [address] [place] [address], [facility] ALKALINE PHOSPH 115 IU/L High 34-104 [facility] Comment on above: Performed By: #### 4 5506, 98697, 39480, 84539, 10409, 95722 #### [facility] [address] [place] [id number], [facility] ALT [Catalytic activity/Vol] 16 U/L Normal 7-52 [facility] Comment on above: Performed By: #### 4 5506, 20185, 34046, 54890, 37907, 65551 #### [facility] [address] [place] [address], [facility] AST [Catalytic activity/Vol] 15 U/L Normal 13-39 [facility] Comment on above: Performed By: #### 4 5506, 01635, 31464, 45597, 91712, 02733 #### [facility] [address] [place] [address], [place] Bilirubin [Mass/Vol] 0.6 mg/dL Normal 0.3-1.0 [facility] Comment on above: Performed By: #### 4 5506, 69086, 80311, 69232, 29043, 63180 #### [facility] [address] [place] [address], [place] Calcium [Mass/Vol] 10.3 mg/dL Normal 8.6-10.3 [facility] Comment on above: Performed By: #### 4 5506, 93252, 60647, 12892, 58474, 48084 #### [facility] [address] [place] [address], [place] Chloride [Moles/Vol] 97 mmol/L Low 98-107 [facility] Comment on above: Performed By: #### 4 5506, 84103, 14018, 99197, 10446, 79573 #### [facility] [address] [place] [address], [place] CO2 [Moles/Vol] 26 mmol/L Normal 21-31 [facility] Comment on above: Performed By: #### 4 5506, 32743, 74510, 71243, 54211, 27970 #### [facility] [address] [place] [address], [place] Creatinine [Mass/Vol] 0.93 mg/dL Normal 0.70-1.30 [facility] Comment on above: Performed By: #### 4 5506, 96638, 18694, 14140, 26729, 38127 #### [facility] [address] [place] [address], [place] GFR/1.73 sq M.predicted among blacks MDRD (S/P/Bld) [Vol rate/Area] mL/min/{1.73_m2} Normal >60 [facility] Comment on above: Performed By: #### 4 5506, 75184, 76721, 71602, 88259, 56315 #### [facility] [address] [place] [address], [place] GFR/1.73 sq M.predicted among non-blacks MDRD (S/P/Bld) [Vol rate/Area] mL/min/{1.73_m2} Normal >60 [facility] Comment on above: Performed By: #### 4 5506, 84346, 78971, 26987, 56879, 53486 #### [facility] [address] [place] [address], [place] Glucose [Mass/Vol] 136 mg/dL High 70-100 [facility] Comment on above: Performed By: #### 4 5506, 15573, 22144, 23003, 46563, 30061 #### [facility] [address] [place] [address], [place] Potassium [Moles/Vol] 5.2 mmol/L High 3.5-5.1 [facility] Comment on above: Performed By: #### 4 5506, 18147, 52352, 83030, 83613, 47156 #### [facility] [address] [place] [address], [place] Protein [Mass/Vol] 6.7 g/dL Normal 6.0-8.3 [facility] Comment on above: Performed By: #### 4 5506, 34586, 55727, 20283, 48023, 14265 #### [facility] [address] [place] [address], [place] Sodium [Moles/Vol] 129 mmol/L Low 136-145 [facility] Comment on above: Performed By: #### 4 5506, 07659, 50568, 69130, 51445, 17850 #### [facility] [address] [place] [address], [place] Urea nitrogen [Mass/Vol] 10 mg/dL Normal 7-25 [facility] Comment on above: Performed By: #### 4 5506, 34333, 33154, 26399, 00031, 70522 #### [facility] [address] [place] [address], [facility] DIRECT BILIon 04-11-2021 Bilirubin.direct [Mass/Vol] 0.2 mg/dL Normal 0.0-0.2 [facility] Comment on above: Performed By: #### 4 5506, 04431, 11734, 11525, 11840, 17673 #### [facility] [address] [place] [address], [facility] LIPID PROFILEon 04-11-2021 Cholesterol [Mass/Vol] 84 mg/dL Low 120-200 [facility] Comment on above: Result Comment: CHOL ESTEROL REFERENCE RANGE: 20 YEARS AND OLDER CARDIOVASCULAR RISK Less than 200 mg/dl Low Risk 200 to 239 mg/dl Borderline Risk 240 mg/dl and greater High Risk Performed By: #### 4 5506, 24188, 03286, 06014, 70707, 98916 #### [facility] [address] [place] [address], [facility] Cholesterol in HDL [Mass/Vol] 41 mg/dL Normal 23-92 [facility] Comment on above: Result Comment: Slig ht variation in normal range could be due to gender and/or age. HDL CHOLESTEROL REFERENCE RANGE: 20 years and older Cardiovascular Risk > or =60 mg/dL Desirable 40 TO 59 mg/dL Low Risk <40 mg/dL High Risk Performed By: #### 4 5506, 10609, 78850, 12216, 91394, 72371 #### [facility] [address] [place] [address], [facility] Cholesterol in LDL [Mass/Vol] 34 mg/dL Normal 0-130 [facility] Comment on above: Result Comment: LDL IS A CALCULATION LDL IS ONLY VALID IF THE TRIG IS LESS THAN 400. Performed By: #### 4 5506, 80039, 78700, 94392, 33415, 31376 #### [facility] [address] [place] [address], [facility] Cholesterol.total/Chol esterol in HDL [Mass ratio] 2.0 {ratio} Normal .0-4.5 [facility] Comment on above: Performed By: #### 4 5506, 93039, 42622, 53455, 95747, 52605 #### [facility] [address] [place] [address], [facility] NON-HDL CHOLESTEROL 43 mg/dL Normal [facility] Comment on above: Performed By: #### 4 5506, 38696, 33146, 90348, 53905, 28808 #### [facility] [address] [place] [address], [facility] Triglyceride [Mass/Vol] 47 mg/dL Normal 40-149 [facility] Comment on above: Result Comment: TRIG LYCERIDE REFERENCE RANGE: 20 YEARS AND OLDER CARDIOVASCULAR RISK LESS THAN 150 mg/dl LOW RISK 150 TO 199 mg/dl BORDERLINE RISK 200 mg/dl AND GREATER HIGH RISK Performed By: #### 4 5506, 41787, 97136, 15152, 66460, 00978 #### [facility] [address] [place] [address], [facility] VLDL CHOL 9 mg/dL Normal 0-40 [facility] Comment on above: Performed By: #### 4 5506, 11679, 23698, 12311, 75979, 53058 #### [facility] [address] [place] [address], [facility] MAGNESIUM BLOODon 04-11-2021 Magnesium [Mass/Vol] 1.3 mg/dL Low 1.9-2.7 [facility] Comment on above: Performed By: #### 4 5506, 47413, 75729, 05582, 06978, 40289 #### [facility] [address] [place] [address], [facility] PHOSPHORUS BLOODon Phosphate [Mass/Vol] 2.6 mg/dL Normal 2.5-5.0 [facility] Comment on above: Performed By: #### 4 5506, 43334, 70977, 90055, 76255, 40506 #### [facility] [address] [facility]. [address] TACROLIMUSon 04-11-2021 Tacrolimus (Bld) [Mass/Vol] 8.3 ng/mL Normal 5.0-20.0 [facility] Comment on above: Result Comment: The [employer] Tacrolimus assay is a delayed one-step immunoassay for the quantitative determination of tacrolimus in human whole blood using the chemiluminescent microparticle immunoassay (CMIA) technology with flexible assay protocols, referred to as Chemiflex. Performed By: #### 4 [id number], [id number], 12208, 10113, 65712, [id number] #### [facility] [address] URIC ACID BLOODon 04-11-2021 Urate [Mass/Vol] 8.4 mg/dL High 4.4-7.6 [facility] Comment on above: Performed By: #### 4 [id number], [id number], 10420, 18486, 87472, 77754 #### [facility] [address] [facility]. [address] BK VIRUS QUANTITATION FOR PL ASMAon 02-16-2021 BKV Plasma Quantitation by PCR Not detected Normal [facility] Comment on above: Result Comment: Meth od: BK virus was measured by quantitative polymerase chain reaction using a fluorescent hydrolysis probe targeting the polyomavirus BK [employer]CH[employer]IAN-1 gene. The lower limit of quantitation of the assay is 500 copies of BK genome per milliliter of plasma or urine, and any detectable BK DNA below that level is reported as: Detected, <500 copies/ml. Serial BK virus measurement can be used to monitor disease activity. (Reference: Katina ramirezl. J CLIN MICRO 2004; 42:9923-0645). This test was developed and its performance characteristics determined by the [facility]. It has not been approved by the [place] Food and Drug Administration. However, such approval is not required for clinical implementation, and test results have been shown to be clinically useful. This laboratory is CAP accredited and CLIA certified to perform high complexity testing. Performed By: #### 4 5506, 94606, 53180, 97433, 11271, 32313 #### [facility] [address] BKV Plasma Quantitation Log by PCR Not detected Normal [facility] Comment on above: Performed By: #### 4 [id number], 87105, 39606, 71673, 50383, 93051 #### [facility] [address] CBC W/DIFFon 02-16-2021 ABS IMM GRANS 0.1 10*3/uL Normal 0.0-0.2 [facility] Comment on above: Performed By: #### 4 5506, 98405, 48814, 84809, 26204, 19037 #### [facility] [address] ABS NEUTROPHILS 5.8 10*3/uL Normal 1.6-7.6 [facility] Comment on above: Performed By: #### 4 5506, 92536, 62041, 44051, 46809, 83770 #### [facility] [address] Basophils (Bld) [#/Vol] 0.0 10*3/uL Normal 0.0-0.2 [facility] Comment on above: Performed By: #### 4 5506, 33079, 73661, 01536, 95005, 46584 #### [facility] [address] [place] [address], [facility] Basophils/100 WBC (Bld) 0.4 % Normal 0.0-1.0 [facility] Comment on above: Performed By: #### 4 5506, 74962, 91738, 11291, 07012, 64959 #### [facility] [address] [place] [address], [facility] Eosinophils (Bld) [#/Vol] 0.3 10*3/uL Normal 0.0-0.5 [facility] Comment on above: Performed By: #### 4 5506, 77540, 12501, 88118, 57110, 04783 #### [facility] [address] [place] [address], [facility] Eosinophils/100 WBC (Bld) 3.5 % Normal 0.0-6.0 [facility] Comment on above: Performed By: #### 4 5506, 94297, 24875, 94137, 91069, 59628 #### [facility] [address] Erythrocyte distribution width (RBC) [Ratio] 13.6 % Normal 11.5-15.0 [facility] Comment on above: Performed By: #### 4 5506, 13158, 68522, 97982, 02922, 36401 #### [facility] [address] Hematocrit (Bld) [Volume fraction] 34.1 % Low 39.0-50.0 [facility] Comment on above: Performed By: #### 4 5506, 48287, 03581, 38158, 82382, 24389 #### [facility] [address] Hemoglobin (Bld) [Mass/Vol] 11.6 g/dL Low 13.0-17.0 [facility] Comment on above: Performed By: #### 4 5506, 96295, 26841, 68236, 11420, 79174 #### [facility] [address] [place] [address], [facility] IMMATURE GRANS 0.8 % Normal 0.0-1.0 [facility] Comment on above: Performed By: #### 4 5506, 24818, 38649, 78354, 72758, 52107 #### [facility] [address] Lymphocytes (Bld) [#/Vol] 0.7 10*3/uL Low 1.2-4.0 [facility] Comment on above: Performed By: #### 4 5506, 49876, 27157, 57649, 17473, 51547 #### [facility] [address] Lymphocytes/100 WBC (Bld) 9.2 % Low 20.0-45.0 [facility] Comment on above: Performed By: #### 4 5506, 12182, 65077, 38602, 92794, 19340 #### [facility] [address] MCH (RBC) [Entitic mass] 29.5 pg Normal 27.0-33.0 [facility] Comment on above: Performed By: #### 4 5506, 07365, 88889, 29588, 31386, 32136 #### [facility] [address] MCHC (RBC) [Mass/Vol] 34.0 g/dL Normal 32.0-35.0 [facility] Comment on above: Performed By: #### 4 5506, 64293, 14050, 55498, 40661, 48690 #### [facility] [address] MCV (RBC) [Entitic vol] 86.8 fL Normal 82.0-98.0 [facility] Comment on above: Performed By: #### 4 5506, 87072, 40389, 11840, 33895, 04837 #### [facility] [address] [place] [address], [facility] Monocytes (Bld) [#/Vol] 0.8 10*3/uL Normal 0.1-1.0 [facility] Comment on above: Performed By: #### 4 5506, 18870, 25208, 71840, 56883, 41363 #### [facility] [address] [place] [id number], [facility] MONOS 10.3 % Normal 5.0-12.0 [facility] Comment on above: Performed By: #### 4 5506, 81847, 90007, 15032, 34950, 32264 #### [facility] [address] [place] [id number], [facility] Neutrophils/100 WBC (Bld) 75.8 % High 40.0-72.0 [facility] Comment on above: Performed By: #### 4 5506, 12585, 13178, 77435, 36468, 32377 #### [facility] [address] [place] [id number], [facility] Nucleated RBC/100 WBC (Bld) [Ratio] 0 % Normal 0-0 [facility] Comment on above: Performed By: #### 4 5506, 97121, 02491, 83211, 67679, 60056 #### [facility] [address] [facility] [place] [address], [facility] PLAT CNT 256 10*3/uL Normal 150-400 [facility] Comment on above: Performed By: #### 4 5506, 97383, 24306, 98991, 91636, 90707 #### [facility] [address] [facility] [place] [address], [facility] RBC (Bld) [#/Vol] 3.93 10*6/uL Low 4.20-5.70 [facility] Comment on above: Performed By: #### 4 5506, 12899, 46601, 87700, 77474, 49913 #### [facility] [address] [place] [id number], [place] WBC (Bld) [#/Vol] 7.65 10*3/uL Normal 4.00-10.60 [facility] Comment on above: Performed By: #### 4 5506, 27886, 78843, 58141, 52574, 36583 #### [facility] [address] [place] [address], [facility] COMP METABOLIC PANELon 02-16 Albumin [Mass/Vol] 4.6 g/dL Normal 3.5-5.7 [facility] Comment on above: Performed By: #### 0 0121, 68184, 51808, 13223, 68998, 79496, 70267, 82276 #### [facility] [address] [place] [address], [facility] ALKALINE PHOSPH 136 IU/L High 34-104 [facility] Comment on above: Performed By: #### 0 0121, 78997, 71556, 64359, 92112, 91246, 14851, 91004 #### [facility] [address] [place] [address], [facility] ALT [Catalytic activity/Vol] 22 U/L Normal 7-52 [facility] Comment on above: Performed By: #### 0 0121, 71596, 94244, 44150, 09918, 58202, 84267, 11469 #### [facility] [address] [place] [address], [facility] AST [Catalytic activity/Vol] 18 U/L Normal 13-39 [facility] Comment on above: Performed By: #### 0 0121, 96709, 23750, 47031, 01184, 05643, 01692, 75900 #### [facility] [address] [place] [address], [place] Bilirubin [Mass/Vol] 0.5 mg/dL Normal 0.3-1.0 [facility] Comment on above: Performed By: #### 0 0121, 54464, 37056, 81821, 57003, 71427, 53483, 73118 #### [facility] [address] [place] [address], [place] Calcium [Mass/Vol] 10.5 mg/dL High 8.6-10.3 [facility] Comment on above: Performed By: #### 0 0121, 36044, 27070, 58686, 96697, 68022, 72749, 29963 #### [facility] [address] [place] [address], [facility] Chloride [Moles/Vol] 94 mmol/L Low 98-107 [facility] Comment on above: Performed By: #### 0 0121, 56344, 96380, 45989, 52521, 82029, 76805, 89093 #### [facility] [address] [place] [address], [place] CO2 [Moles/Vol] 28 mmol/L Normal 21-31 [facility] Comment on above: Performed By: #### 0 0121, 07715, 06412, 47299, 58251, 30047, 36687, 18256 #### [facility] [address] [place] [address], [facility] Creatinine [Mass/Vol] 0.93 mg/dL Normal 0.70-1.30 [facility] Comment on above: Performed By: #### 0 0121, 01343, 80661, 92309, 90132, 06652, 38062, 75005 #### [facility] [address] [place] [address], [place] GFR/1.73 sq M.predicted among blacks MDRD (S/P/Bld) [Vol rate/Area] mL/min/{1.73_m2} Normal >60 [facility] Comment on above: Performed By: #### 0 0121, 55407, 67855, 83637, 36938, 89836, 92777, 25948 #### [facility] [address] [place] [address], [place] GFR/1.73 sq M.predicted among non-blacks MDRD (S/P/Bld) [Vol rate/Area] mL/min/{1.73_m2} Normal >60 [facility] Comment on above: Performed By: #### 0 0121, 53014, 26188, 79039, 53234, 16160, 42521, 32954 #### [facility] [address] [place] [address], [place] Glucose [Mass/Vol] 147 mg/dL High 70-100 [facility] Comment on above: Performed By: #### 0 0121, 38986, 94515, 85397, 42961, 19504, 51960, 46819 #### [facility] [address] [place] [address], [place] Potassium [Moles/Vol] 4.6 mmol/L Normal 3.5-5.1 [facility] Comment on above: Performed By: #### 0 0121, 45598, 66720, 78218, 30934, 92299, 67730, 12813 #### [facility] [address] [place] [address], [place] Protein [Mass/Vol] 7.2 g/dL Normal 6.0-8.3 [facility] Comment on above: Performed By: #### 0 0121, 64475, 05270, 33535, 99393, 78062, 17423, 98869 #### [facility] [address] [place] [address], [place] Sodium [Moles/Vol] 129 mmol/L Low 136-145 [facility] Comment on above: Performed By: #### 0 0121, 02360, 93632, 88649, 00656, 75475, 18802, 08150 #### [facility] [address] [place] [address], [place] Urea nitrogen [Mass/Vol] 15 mg/dL Normal 7-25 [facility] Comment on above: Performed By: #### 0 0121, 48751, 21964, 72756, 01336, 74761, 61067, 41257 #### [facility] [address] [place] [address], [facility] DIRECT BILIon 02-16-2021 Bilirubin.direct [Mass/Vol] 0.2 mg/dL Normal 0.0-0.2 [facility] Comment on above: Performed By: #### 4 5506, 74798, 77617, 04888, 38168, 18050 #### [facility] [address] [place] [address], [facility] HEMOGLOBIN A1Con 02-16-2021 Glucose [Moles/Vol] 154 mmol/L Normal [facility] Comment on above: Performed By: #### 4 5506, 45478, 45570, 37252, 22253, 44925 #### [facility] [address] [place] [address], [facility] HbA1c (Bld) [Mass fraction] 7.0 % High 4.0-6.0 [facility] Comment on above: Performed By: #### 4 5506, 74993, 99423, 19174, 48961, 81446 #### [facility] [address] [place] [address], [facility] LIPID PROFILEon 02-16-2021 Cholesterol [Mass/Vol] 78 mg/dL Low 120-200 Th [facility] Comment on above: Result Comment: CHOL ESTEROL REFERENCE RANGE: 20 YEARS AND OLDER CARDIOVASCULAR RISK Less than 200 mg/dl Low Risk 200 to 239 mg/dl Borderline Risk 240 mg/dl and greater High Risk Performed By: #### 0 0121, 68476, 71948, 09941, 28916, 70864, 38691, 89074 #### [facility] [address] [place] [address], [facility] Cholesterol in HDL [Mass/Vol] 41 mg/dL Normal 23-92 [facility] Comment on above: Result Comment: Slig ht variation in normal range could be due to gender and/or age. HDL CHOLESTEROL REFERENCE RANGE: 20 years and older Cardiovascular Risk > or =60 mg/dL Desirable 40 TO 59 mg/dL Low Risk <40 mg/dL High Risk Performed By: #### 0 0121, 93254, 31921, 68418, 40014, 49290, 83765, 56658 #### [facility] [address] [place] [address], [facility] Cholesterol in LDL [Mass/Vol] 28 mg/dL Normal 0-130 [facility] Comment on above: Result Comment: LDL IS A CALCULATION LDL IS ONLY VALID IF THE TRIG IS LESS THAN 400. Performed By: #### 0 0121, 31099, 21712, 42744, 18899, 21793, 31240, 26019 #### [facility] [address] [place] [address], [facility] Cholesterol.total/Chol esterol in HDL [Mass ratio] 1.9 {ratio} Normal .0-4.5 [facility] Comment on above: Performed By: #### 0 0121, 71941, 36336, 03662, 74296, 53884, 82743, 08560 #### [facility] [address] [place] [address], [facility] NON-HDL CHOLESTEROL 37 mg/dL Normal [facility] Comment on above: Performed By: #### 0 0121, 08458, 02608, 33270, 26272, 50376, 80431, 14986 #### [facility] [address] [place] [address], [facility] Triglyceride [Mass/Vol] 44 mg/dL Normal 40-149 [facility] Comment on above: Result Comment: TRIG LYCERIDE REFERENCE RANGE: 20 YEARS AND OLDER CARDIOVASCULAR RISK LESS THAN 150 mg/dl LOW RISK 150 TO 199 mg/dl BORDERLINE RISK 200 mg/dl AND GREATER HIGH RISK Performed By: #### 0 0121, 25476, 43886, 95686, 25530, 39729, 31787, 84821 #### [facility] [address] [place] [address], [place] VLDL CHOL 9 mg/dL Normal 0-40 [facility] Comment on above: Performed By: #### 0 0121, 24604, 83542, 81159, 70190, 64736, 35817, 72170 #### [facility] [address] [place] [address], [facility] MAGNESIUM BLOODon 02-16-2021 Magnesium [Mass/Vol] 1.5 mg/dL Low 1.9-2.7 [facility] Comment on above: Performed By: #### 4 5506, 47111, 13835, 86397, 85013, 38659 #### [facility] [address] [place] [address], [facility] PHOSPHORUS BLOODon Phosphate [Mass/Vol] 2.4 mg/dL Low 2.5-5.0 [facility] Comment on above: Performed By: #### 0 0121, 91667, 67371, 13561, 36416, 69585, 94552, 07936 #### [facility] [address] [place] [address], [facility] PROSPERAon 02-16-2021 PROSPERA KIT Results to be mailed directly to physician's office by reference lab. Normal [facility] Comment on above: Result Comment: Test performed by [id number] [place] [address] No result expected. For billing and tracking purposes only. Specimen collected for transplant patient and sent to requesting hospital per Dr instructions. No charge. Performed By: #### 4 5506, 88158, 43605, 55519, 66405, 12671 #### [facility] [address] [facility] [place] [address], [facility] RESULT Results to be mailed directly to physician's office by reference lab. Normal [facility] Comment on above: Performed By: #### 4 5506, 51871, 94235, 47585, 69768, 32382 #### [facility] [address] [place] [address], [facility] PTH INTACTon 02-16-2021 PTH INTACT 123 pg/mL High 12-88 [facility] Comment on above: Performed By: #### 4 5506, 06532, 71180, 56365, 12726, 56332 #### [facility] [address] [facility] [address] SINGLE ANTIGEN CLASS 1on METHOD Class I Single Antigen Normal [facility] Comment on above: Order Comment: Some of [...] to frequency. Performed By: #### 4 5506, 56635, 21664, 91549, 44013, 40463 #### [facility] [address] [facility]. [address] SINGLE ANTIGEN CLASS 2on COMMENTS Normal [facility] Comment on above: Order Comment: Some of [...] Antigen Microbeads Performed By: #### 4 5506, 43228, 24182, 05065, 75624, 19363 #### [facility] [address] [facility]. [address] Result Comment: No C lass I donor specific antibody identified Class I Antigen Microbeads METHOD Class II Single Antigen Normal [facility] Comment on above: Order Comment: Some of [...] to frequency. Performed By: #### 4 5506, 79306, 41286, 08480, 42576, 49870 #### [facility] [address] SIGNED BY Normal [facility] Comment on above: Order Comment: Some of [...] frequency. Result Comment: Jose A Lara MS,CHT(IRINEO),MT(ASCP) [employer] Director, Transplant Immunology Performed By: #### 4 5506, 19119, 51389, 23840, 56033, 65023 #### [facility] [address] TACROLIMUSon 02-16-2021 Tacrolimus (Bld) [Mass/Vol] 7.0 ng/mL Normal 5.0-20.0 [facility] Comment on above: Result Comment: The [employer] Tacrolimus assay is a delayed one-step immunoassay for the quantitative determination of tacrolimus in human whole blood using the chemiluminescent microparticle immunoassay (CMIA) technology with flexible assay protocols, referred to as Chemiflex. Performed By: #### 4 5506, 41416, 05524, 92741, 99037, 81228 #### [facility] [address] [place] [address], [facility] TESTOSTERONE, FREE+SHBG+TOTA L ILon 02-16-2021 [place] Normal [facility] Comment on above: Result Comment: Test Performed by [employer] [address] [place] [address] - Released 02/16/2021 18:49 SEX HORM BIND GLOB 52 nmol/L Normal 11-80 [facility] Testosterone [Mass/Vol] 399 ng/dL Normal 220-1000 [facility] TESTOSTERONE, FREE 60.0 pg/mL Normal 47-244 [facility] Comment on above: Result Comment: The concentration of free testosterone is derived from a mathematical expression based on the constant for the binding of testosterone to albumin and/or sex hormone binding globulin. URIC ACID BLOODon 02-16-2021 Urate [Mass/Vol] 8.0 mg/dL High 4.4-7.6 [facility] Comment on above: Performed By: #### 0 0121, 28741, 79212, 10190, 49391, 41603, 99451, 90858 #### [facility] [address] [facility]. [address] VITAMIN D 25-HYDROXYon 02-16 VITAMIN D 25-OH 35.1 ng/mL Normal 30.0-80.0 [facility] Comment on above: Result Comment: >80. 0 Toxicity possible Performed By: #### 4 5506, 96838, 77710, 95087, 72582, 89068 #### [facility] [address] [facility] [address] Vital Signs Date Time Vital Sign Value Performing Clinician Facility 02-16-2024 08: Body height 167.6 cm Jericho Mccarthy MD Work Phone: [facility] 02-16-2024 08: Body mass index (BMI) [Ratio] 24.37 kg/m2 Jericho Mccarthy MD Work Phone: [facility] 02-16-2024 08: Body temperature 97.5 [degF] Jericho Mccarthy MD Work Phone: [facility] 02-16-2024 08: Body weight 68.49 kg Jericho Mccarthy MD Work Phone: [facility] 02-16-2024 08:19-0400 Diastolic blood pressure 60 mm[Hg] Jericho Mccarthy MD Work Phone: [facility] 02-16-2024 08:19-0400 Heart rate 57 /min Jericho Mccarthy MD Work Phone: [facility] 02-16-2024 08:19-0400 Respiratory rate 18 /min Jericho Mccarthy MD Work Phone: [facility] 02-16-2024 08:19-0400 SaO2% (BldA) [Mass fraction] 98 % Jericho Mccarthy MD Work Phone: [facility] 02-16-2024 08:19-0400 Systolic blood pressure 120 mm[Hg] Jericho Mccarthy MD Work Phone: [facility] 03-05-2022 09:30-0400 Diastolic blood pressure 74 mm[Hg] MD Jericho Mccarthy Work Phone: [facility] 03-05-2022 09:30-0400 Heart rate 58 /min MD Jericho Mccarthy Work Phone: [facility] 03-05-2022 09:30-0400 Respiratory rate 18 /min MD Jericho Mccarthy Work Phone: [facility] 03-05-2022 09:30-0400 SaO2% (BldA) [Mass fraction] 99 % MD Jericho Mccarthy Work Phone: [facility] 03-05-2022 09:30-0400 Systolic blood pressure 133 mm[Hg] MD Jericho Mccarthy Work Phone: [facility] 03-05-2022 07:01-0400 Body height 167.64 cm MD Jericho Mccarthy Work Phone: [facility] 03-05-2022 07:01-0400 Body temperature 97.9 [degF] MD Jericho Mccarthy Work Phone: [facility] 03-05-2022 07:01-0400 Body weight 74.84 kg MD Jericho Mccarthy Work Phone: [facility] 01-21-2022 10:30-0400 Body height 167.64 cm Tj Maira Other [facility] Other 01-21-2022 10:30-0400 Body mass index (BMI) [Ratio] 26.47 kg/m2 Tj Maira Other [facility] Other 01-21-2022 10:30-0400 Body weight 74.39 kg Tj Wells Other [facility] Other 01-21-2022 10:30-0400 Diastolic blood pressure 71 mm[Hg] Tj Wells Other [facility] Other 01-21-2022 10:30-0400 Systolic blood pressure 148 mm[Hg] Tj Wells Other [facility] Other Encounters Encounter Date Encounter Type Care Provider Facility Start: 06-18-2024 End: 06-18-2024 [facility] Start: 06-09-2024 End: 06-09-2024 [facility] Start: 06-04-2024 End: 06-04-2024 [facility] Result Encounter [...] Available Start: 02-11-2024 End: 02-11-2024 ambulatory [facility] Start: 02-06-2024 End: 02-06-2024 [facility] Result Encounter [...] Unsolicited Start: 10-31-2023 End: 10-31-2023 ambulatory [facility] Start: 08-25-2023 End: 08-25-2023 ambulatory JERICHO MCCARTHY [...] Start: 03-05-2022 End: 03-05-2022 ambulatory Tj Wells Facility:[facility] Start: 03-05-2022 End: 03-05-2022 Admission to same day surgery center MD Jericho Mccarthy Work Phone: [facility] Start: 03-05-2022 End: 03-05-2022 ambulatory MD Jericho Mccarthy Work Phone: [facility] Work Phone: Start: 03-01-2022 End: 03-01-2022 ambulatory Tj Wells Facility:[facility] Start: 03-01-2022 End: 03-01-2022 ambulatory MD Jericho Mccarthy Work Phone: [facility] Work Phone: Start: 03-01-2022 End: 03-01-2022 Patient encounter procedure MD Jericho Mccarthy Work Phone: [id number] Start: 02-01-2022 End: 02-02-[address] DOCTOR MCCABE Facility:[facility] Start: 01-21-2022 End: 01-21-2022 ambulatory Tj Wells Other [facility] Other Start: 01-21-2022 Office outpatient ne w 45 minutes Tj Wells [facility] Gastroenterology Start: 01-04-2022 End: [...] screening for protein Diabetes: Urine Protein Screening [facility] Comment on above: Postponed from 07/09 (Other Medical Reasons) Postponed from 12/15 (Other Medical Reasons) Start: 02-03-2025 End: 02-03-2025 Patient encounter procedure 02/03/2025 9:00 AM EDT Office Visit [facility] [address] [place] [address] Rajesh Gaines MD [address] [place] [address] [facility] Start: 08-05-2024 Hemoglobin A1c measurement Diabetes: Hemoglobin A1C [facility] Start: 03-11-2024 End: 03-11-2024 Patient encounter procedure 03/11/2024 9:15 AM EDT Office Visit [facility] [address] [place] [address] Jericho Mccarthy MD [address] [place] [id number] [facility] Start: 02-16-2024 End: 02-16-2024 Patient encounter procedure [facility] Comment on above: Arrived Start: 02-02-2024 End: 02-02-2024 Patient encounter procedure [facility] Comment on above: Arrived Start: 01-11-2024 Influenza vaccination Influenza Vacc ine (#1) [facility] Start: 10-07-2023 Hemoglobin A1c measurement Diabetes: Hemoglobin A1C [facility] Start: 03-05-2022 [facility] Start: 01-31-2017 Pneumococcal Vaccine : 65+ Years (2 of 2 - PCV) Pneumococcal Vaccine: 65+ Years (2 of 2 - PCV) [facility] Start: 1950 Medicare Annual Wellness (AWV) Medicare Annual Wellness (AWV) [facility] Start: 1950 Screening for malign ant neoplasm of colon [facility] Patient Education [facility] Work Phone: Immunizations Immunization Date Immunization Notes Care Provider German campbell 02-18-2023 Influenza, High-dose Seasonal, Quadrivalent, Preservative Free Generic Provider [facility] 02-18-2023 influenza virus vaccine, unspecified formulation Generic Provider [facility] 04-30-2021 COVID-19 mRNA Bivale nt Booster (Pfizer) MD Jericho Mccarthy Work Phone: [facility] 04-30-2021 Influenza, Seasonal, Quadrivalent, Adjuvanted Generic Provider [facility] 08-01-2020 COVID-19 mRNA, Comirnaty (Shout For Good) MD Jericho Mccarthy Work Phone: [facility] 07-12-2020 COVID-19 mRNA, Comirnaty (Shout For Good) MD Jericho Mccarthy Work Phone: [facility] 02-09-2019 influenza, injectabl e, quadrivalent, contains preservative Generic Provider [facility] 02-13-2017 influenza, seasonal, injectable Tj Wells Other [facility] Other 02-09-2017 influenza virus vaccine, unspecified formulation Generic Provider [facility] 06-27-2016 influenza, seasonal, injectable Tj Wells Other [facility] Other 02-01-2016 pneumococcal polysaccharide vaccine, 23 valent Tj Wells Other [facility] Other Payers Date Payer Category Payer Private Health Insurance [id number] 2022 Private Health Insurance [id number] 2022 Unknown [employer] [place] [employer] [employer] [place] [employer] [id number] 2022-Present [id number] [employer] [place] [id number] 2022 Self-pay [id number] 2022 Unknown [id number] 2009 Medicare [id number] 1959 Medicare [id number] 1959 Private Health Insurance [id number] 1951 Unknown [id number] 1951 Unknown [id number] 2.16.840.1.513061.3.579.2 .593 1950 Unknown [id number] 2.16.840.1.534014.3.579.2 .593 1950 Unknown [id number] 2.16.840.1.054252.3.579.2 .593 1950 Unknown [id number] 2.16.840.1.831773.3.579.2 .593 1950 Unknown [id number] 2.16.840.1.001815.3.579.2 .593 1950 Unknown [id number] 2.16.840.1.572182.3.579.2 .593 1950 Unknown [id number] 2.16.840.1.491445.3.579.2 .593 1950 Unknown [id number] 2.16.840.1.159373.3.579.2 .593 1950 Unknown [id number] 2.16.840.1.214015.3.579.2 .593 1950 Unknown [id number] 2.16.840.1.163664.3.579.2 .593 1950 Unknown [id number] 2.16.840.1.935130.3.579.2 .593 1950 Unknown [id number] 2.16.840.1.826438.3.579.2 .1259 1950 Unknown [id number] 2.16.840.1.446400.3.579.2 .1259 1950 Unknown [id number] 2.16.840.1.301555.3.579.2 .1259 1950 Unknown [id number] 2.16.840.1.290389.3.579.2 .1259 Unknown [id number] 2.16.840.1.196711.3.579.2 .531 Unknown [id number] 2.16.840.1.734240.3.579.2 .531 Social History Date Type Detail Facility Unknown if ever smoked [facility] Other Start: 02-02-2024 End: 02-16-2024 Sex Assigned At [facility] Other Start: 11-11-2019 End: 04-15-2023 Tobacco smoking status WIIS Ex-smoker (finding) [facility] Start: 1950 Sex Assigned At Male F [facility] Start: 05-12-1980 End: 05-12-1992 History of tobacco use Current smoker [facility] Start: 05-12-1980 End: 05-12-1992 History of tobacco use Cigarette Smoker [facility] Start: 04-15-2023 Tobacco use and exposure Smokeless tobacco non-user [facility] Start: 02-02-2024 End: 02-16-2024 History of Social function [facility] Start: 1950 Sex assigned at Not on file N [facility] Healthcare Medical Equipment Procedure Code Equipment Code Equipment Original Text Equipment Identifier Dates Creation or revision of arteriovenous fistula GRAFT ARTEGRAFT 6MM X 40CM [facility] Start: 01-14-2017 Creation or revision of arteriovenous fistula GRAFT ARTEGRAFT 6MM X 40CM FDA Start: 01-14-2017 Goals Date Patient Goal Desired Activity /State Clinical Notes 09-09-2009 to 09-07-2024 Jericho Mccarthy MD - 02/16/2024 8:49 AM Donna Mccarthy MD - 02/16/2024 8:49 AM Donna Mccarthy MD - 02/16/2024 8:48 AM Donna Mccarthy MD - 02/16/2024 8:15 AM EDT Note Date & Type Note Facility 09-07-2024 Note Recreation Instructor called jasson huntley to reschedule appt on 11-11-24 Dr. Benitez will be out of the office. Recreation Instructor left detailed message. Appointment cancelled. [facility] 06-18-2024 Note Attestation signed by Ananda Pan MD at 06/22/2024 1:41 PM I personally saw and examined the patient on the same date of service as resident/fellow Baron Nguyen MD. I discussed the findings and therapeutic plan with the Baron Nguyen MD. I agree with the documentation, except for any edits/updates below. Ananda Pan MD Faculty, Division of Nephrology, Department of Medicine, [facility]. Nephrology Transplant Clinic Patient [...] PROT 6.8 02 (more content not included)... [facility] 06-16-2024 Note After [employer] Ch at message from Santana Villegas that he will see pt for FU, this coordinator left a voicemail message for the pt to contact the clinic ([facility]) for his RV time on 06/18/24. [facility] 06-09-2024 Note SUBJECTIVE Roger Kerr is a [...] History: Diagnosis Date CHF (congestive heart failure) ([facility]/HCC) Chronic kidney disease Coronary artery disease Hypertension Pulmonary hypertension ([facility]/HCC) Past Surgical History: Procedure Laterality Date AV FISTULA PLACEMENT CARDIAC CATHETERIZATION CATARACT EXTRACTION COLONOSCOPY HAND SURGERY TRANSPLANTATION RENAL Patient Active Problem List Diagnosis Cataract Congestive heart failure ([facility]/HCC) Coronary atherosclerosis End-stage renal disease ([facility]/HCC) History of renal transplant Peripheral vascular disease ([facility]/HCC) Increased infection risk status post immunosuppressive therapy Multiple congenital cysts of kidney Moderate mixed hyperlipidemia not requiring statin therapy COLD (chronic obstructive lung disease) (CMS/HCC) Essential hypertension, benign Pleurisy with effusion Polycystic kidney DAVID (acute kidney injury) (CMS/HCC) Hypomagnesemia Anemia of renal disease Basal cell carcinoma (BCC) of dorsum of nose Chronic heart failure with preserved ejection fraction (HFpEF) ([facility]/HCC) Type 2 diabetes mellitus with hyperglycemia, with long-term current use of insulin ([facility]/HCC) family history includes ALS in his brother; [...] not crush, c (more content not included)... [facility] 06-09-2024 Note Patient here for 1 y [...] All other systems reviewed and are negative. [facility] 06-04-2024 Note Reviewed over the ph one with Dr. Martines patients mag 1.4. To make sure patient is consistently taking his mag. Spoke to patient who said he will work on it, he has issues with diarrhea while on it. He will try Maalox and call us if diarrhea is not improved. [facility] 04-13-2024 Note Patient called reque sting refill on Furosamide. Patient was informed rx was discontinued in Jan by Santana. [facility] 02-16-2024 History of Present illness Narrative Associated [...] 100 UNIT/ML pen documented in this encounter [facility] 02-11-2024 Note Transplant Clinic Patient : Roger [...] finger stick at home. On 05/14/[address] Root: pt to consistently take Mag supplement and restart Amlodipine and continue amiloride for low Mag. Pt inpatient 04/27/23 to 04/30/23 for DAVID/Hyponatrimea nd uncontrolled DM. Pt seeing PCP who treats DM next week. Instructed patient to consider Medical Coordinator Pesticide Use locally to him: [place]. Pt [...] Results Component Value Date/Time NA 125 (L) 07/09/2023912 K 5.2 (H) 07/09/2023912 CL 93 (L) more content not included)... [facility] 02-02-2024 History of Present illness Narrative Skin [...] Visit: 1 year documented in this encounter [facility] 01-19-2024 Note Mg 1.2 reviewed with PRUDENCIO Chou. Patient was previously refusing infusion for Magnesium and note from visit 10/30 was not complete. Per PRUDENCIO Chou on [employer] secure chat patient is to be on Amiliride 5mg daily, take Maalox and Mylanta with Mg. Phone call to patient who had stopped Amiliride in error and has been continuing to take Amlodipine which was discontinued. Patient requested script for Amiliride to be sent to [facility] in [place]. Reviewed magnesium rich foods with patient. Patient also states he is taking 2400 mg of magnesium daily. Instructed patient to get repeat labs this month. Patient verbalizes understanding. Also mailed standing lab order for monthly BK to patient to have added to standing labs. [facility] 10-31-2023 Note Patient notified abo ut mag level of 1.3, he stated he saw the SALT LIFTER here today and came up with a plan because he does not want an infusion. [facility] 10-31-2023 Note Transplant Clinic Patient : Roger [...] DM next week. Instructed patient to consider Medical Coordinator Pesticide Use locally to him: [place]. Pt [...] 0837 CALCIUM 9.1 (more content not included)... [facility] 03-05-2022 Procedure note [facility] 01-21-2022 Evaluation note Encounter Date Diagnosis Assessment Notes Jan, Diarrhea (ICD-10 - R19.7) Colonoscopy Okay to take Imodium - 1 tablet every morning Jan, Fecal urgency (ICD-10 - R15.2) [facility] Other 05-01-2010 History general Narrative - Reported* [...] balloon angioplasty 11/14/2016 Surgical History left forearm tomsa-fi stula resection, a new graft (Artegraft) placement, balloon angioplasty 01/14/17 Surgical History colonoscopy 07/08/2017 Surgical History right kidney transplant 2019 Hospitalization History Kidney Issue; on transplant list [facility]) 02/2018 Hospitalization History pulmonary embolism 0 [facility] Other Evaluation noteNo assessment information available [facility] Work Phone: Evaluation note* Diagnosis Onset Date Resolution Status Diarrhea acute [facility] Work Phone: Evalusmtle note* Diagnosis Type 2 diabetes mellitus with hyperglycemia, with long-term current use of insulin (CMS/HCC)- Primary Essential hypertension, benign (CMS/HCC) Essential hypertension, benign Peripheral vascular disease (CMS/HCC) Unspecified peripheral vascular disease Type 2 diabetes mellitus with diabetic chronic kidney disease (CMS/HCC) Chronic kidney disease, stage 2 (mild) Type 2 diabetes mellitus with diabetic peripheral angiopathy without gangrene (CMS/HCC) [facility] Diagnosis Sebaceous hyperplasia of face- Primary History of basal cell carcinoma Personal history of other malignant neoplasm of skin Lentigines documented in this encounter [facility] Additional Instructions DISCHARGE INSTRUCTIONS FOR [...] if you have any problems. -Office number [phone] Work Phone: Reason for visit NarrativePATIENT REFERRED BY DR. MCCARTHY FOR EVALUATION AND TREATMENT OF DIARRHEAAtlanta [employer] Other Summary Purpose Family History No Family [...] section and content) DATE CREATED AUTHOR 07/13/2019 [facility] DATE CREATED AUTHOR AUTHOR'S ORGANIZ ATION 11/02/2021 [facility] DATE CREATED AUTHOR AUTHOR'S ORGANIZ ATION 03/12/2022 [facility] DATE CREATED AUTHOR AUTHOR'S ORGANIZ ATION 10/18/2022 [facility] DATE CREATED AUTHOR AUTHOR'S ORGANIZ ATION 02/16/2024 [facility] DATE CREATED AUTHOR AUTHOR'S ORGANIZ ATION 09/08/2024 [facility] Care Teams (unrecognized sec tion and content) Team Status: Inactive Member Role Status Dates Jericho Mccarthy MD Primary Care Provider Active Tj Wells MD Attending Provider Active Team Status: Active Member Role Status Dates Jericho Mccarthy MD Primary Care Provider Active Tongue Stitcher Relationship Specialty Start Date End Date Jericho Mccarthy MD [address] [place] [phone] PCP - General Family Medicine 08/25/23 Tongue Stitcher Relationship Specialty Start Date End Date Jericho Mccarthy MD [address] [place] [phone] PCP - General Family Medicine 08/25/23 Tongue Stitcher Relationship Specialty Start Date End Date Jericho Mccarthy MD [address] [place] [phone] PCP - General Family Medicine 08/25/23 Tongue Stitcher Relationship Specialty Start Date End Date Jericho Mccarthy MD [address] [place] [phone] PCP - General Family Medicine 08/25/23 Tongue Stitcher Relationship Specialty Start Date End Date Jericho Mccarthy MD [address] [place] [phone] PCP - General Family Medicine 08/25/23 Goals [...] BE BASED ON THE PRIMARY CLINICAL RECORDS. [facility] provides no warranty or guarantee of the accuracy or completeness of information in this document.
[2024-09-30 07:40] LABS: Basophils Percent Auto 0.7 % (0.2-2.0); Eosinophils Absolute Auto 0.2 10^3/uL (0.0-0.7); Hematocrit 36.3 % (42.0-54.0); Hemoglobin 11.7 g/dL (14.0-18.0); Immature Granulocytes Abs Auto 0.04 10^3/uL (0.00-0.03); Immature Granulocytes Pct Auto 0.7 % (0.0-0.5); Lymphocytes Percent Auto 16.7 % (20.5-60.0); Mean Corpuscular HGB Conc 32.2 g/dL (29.9-35.2); Mean Corpuscular Hemoglobin 29.1 pg (25.9-34.0); Mean Corpuscular Volume 90.3 fL (80.0-94.0); Mean Platelet Volume 9.5 fL (9.5-13.5); Monocytes Absolute Auto 0.4 10^3/uL (0.3-0.8); Monocytes Percent Auto 6.8 % (1.7-12.0); Neutrophils Absolute Auto 4.4 10^3/uL (1.4-6.5); Neutrophils Percent Auto 72.1 % (43.0-75.0); Platelet Count 242 10^3/uL (150-450); Red Blood Count 4.02 10^6/uL (4.70-6.10); Red Cell Distribution Width 14.1 % (11.0-15.0); White Blood Count 6.1 10^3/uL (4.0-11.0)
[2024-09-30 07:57] LABS: Chol HDL Ratio 1.4; Cholesterol 80 mg/dL (<=200); HDL Cholesterol 56 mg/dL (40-60); LDL Cholesterol Calculated 17.8 mg/dL; Triglycerides 31 mg/dL (<=150); VLDL CHOLESTEROL 6.2 mg/dL
[2024-09-30 07:58] LABS: Alanine Aminotransferase 20 U/L (16-63); Albumin Globulin Ratio 1.3; Albumin Level 3.9 g/dL (3.4-5.0); Alkaline Phosphatase 125 U/L (46-116); Anion Gap 13.5; Aspartate Amino Transferase 11 U/L (15-37); BUN Creatinine Ratio 18.6; Bilirubin Direct 0.1 mg/dL (0.0-0.2); Bilirubin Total 0.5 mg/dL (0.2-1.0); Calcium 8.6 mg/dL (8.5-10.1); Carbon Dioxide 27.6 mmol/L (21.0-32.0); Chloride 105 mmol/L (98-107); Estimated GFR (African America >60 (>=60 mL/min/1.73m^2); Estimated GFR (Non-African Ame >60 (>=60 mL/min/1.73m^2); Glucose 102 mg/dL (74-106); Magnesium 1.3 mg/dL (1.8-2.4); Phosphorus 2.9 mg/dL (2.6-4.7); Potassium 5.1 mmol/L (3.5-5.1); Sodium 141 mmol/L (136-145); Total Protein 6.9 g/dL (6.4-8.2); Uric Acid 6.3 mg/dL (3.5-7.2)
[2024-09-30 08:33] LABS: Estimated Average Glucose 131 mg/dL; Glycohemoglobin A1C 6.2 % (4.5-6.2)
[2024-10-01 04:07] LABS: Sex Horm Binding Glob, Serum 67.9 nmol/L (19.3-76.4)
[2024-10-02 11:08] LABS: BKV DNA, Quant PCR, Plasma Negative (Negative)
[2024-10-04 05:10] LABS: Free Testosterone(Direct) 11.3 pg/mL (6.6-18.1); Tacrolimus (FK506), Blood 5.6 ng/mL (5.0-20.0); Testosterone 622 ng/dL (264-916)
== END 2024-09-30 06:57 | disposition home or self-care (01) ==
LOC: LAB 06:59
PROVIDERS: PCP Family Medicine; Visit Provider Nurse Practitioner Family
DX: Z94.0 Kidney transplant status (principal); E13.9 Other specified diabetes mellitus without complications
CPT/HCPCS: 36415; 80053; 80061; 80197; 82248; 83036; 83735; 84100; 84270; 84402; 84403; 84550; 85025; 87799

== ENCOUNTER 2024-12-01 07:02 | Outpatient (OUT) | payer MEDICARE, OTHER, SELFPAY ==
--- OUTSIDE RECORDS SUMMARY | 2024-12-01 07:06 | XMS_ITS | Clinical Summary ---
Author Organization [facility] Address [address] [place] [address] Phone Care Team Providers Care Roll Up Guider Operator Name Role Phone Unavailable Primary Care Provider [...]
--- OUTSIDE RECORDS SUMMARY | 2024-12-01 07:06 | XMS_ITS | Encounter Summary ---
Author Organization [facility] Address [address] [place] [address] Care Team Providers Care Supervisor Litharge Name Role Phone Jericho Centeno MD Primary Care Provider Jericho Abad PRUNE WASHER Unavailable [phone] Reason for Visit * Reason Comments Med Refill Encounter Details Date Type Department Care Team (Late st Contact Info) Description 07/03/2022 Refill [facility] Heart at [facility] [address] [place] [address] Sahil Mcghee MD [address] [facility] [address] [facility] [place] [address] Essential hypertension Social History Tobacco Use Types Packs/Day Years Used Date Smoking Tobacco: Former Cigarettes Smokeless Tobacco: Never Alcohol Use Standard Drinks/Week Comments Not Currently 0 (1 standard drink = 0.6 oz pur e alcohol) Sex and Gender Information Value Date Recorded Sex Assigned at Male 04/28/2023 1:43 PM EST Legal Sex Male 10:39 PM EDT Gender Identity Male 04/28/2023 1:43 PM EST Sexual Orientation Heterosexual or Straight 04/11 1:43 PM EST documented as of this encounter Plan of Treatment Upcoming Encounters Date Type Department Care Team (Late st Contact Info) Description 12/02/2024 1:45 PM EDT Follow-Up [facility] Transplant [address] [place] [address] Jessica Fields, DMITRI [address] [address] [place] [address] documented as of this encounter Visit Diagnoses Diagnosis Essential hypertension Unspecified essential hypertension documented in this encounter Care Teams Supervisor Litharge Relationship Specialty Start Date End Date Jericho Centeno MD [address] [place] [address] PCP - General 01/29/22 Jericho Abad CNP [address] [place] [address] Nurse Practitioner Urology 04/16/22 documented as of this encounter
--- OUTSIDE RECORDS SUMMARY | 2024-12-01 07:07 | XMS_ITS | Clinical Summary ---
Author Organization [facility] Address [address] [place] [address] Care Team Providers Care Optimization Manager Name Role Phone Jericho Centeno MD Primary Care Provider [phone] Jericho Abad JOURNEYMAN PLUMBER Unavailable Allergies Active Allergy Reactions Criticality Noted Date Comments Nsaids (Non-Steroidal Anti-I nflammatory Drug) 04/01/2022 Medications sulfaSALAzine (Azulfidine) 500 mg EC tablet Take 500 mg by mouth in the morning and at bedtime. 2 Active isopropyl alcohoL 70 % toweletteIndicati ons:DAVID (acute kidney injury),Diabetic ketoacidosis without coma associated with type 2 diabetes mellitus (CMS/HCC) Test daily before all meals/snacks and once before bedtime. 1 each 3 Active insulin glargine (Lantus Solostar U-100 Insulin) 100 unit/mL (3 mL) injection penIndications:AK I (acute kidney injury),Diabetic ketoacidosis without coma associated with type 2 diabetes mellitus (CMS/HCC) Inject 20 Units under the skin at bedtime. 3 mL 2 3 Active metFORMIN (Glucophage) 500 mg tabletIndications :DAVID (acute kidney injury),Diabetic ketoacidosis without coma associated with type 2 diabetes mellitus (CMS/HCC) Take 1 tablet (500 mg) by mouth with breakfast and with evening meal. 60 tablet 3 Active omeprazole OTC (PriLOSEC OTC) 20 mg EC tabletIndications :DAVID (acute kidney injury),Diabetic ketoacidosis without coma associated with type 2 diabetes mellitus (CMS/HCC) Take 1 tablet (20 mg) by mouth before breakfast. Do not crush, chew, or split. 30 tablet 2 3 Active blood-glucose meter miscIndications:A KI (acute kidney injury),Diabetic ketoacidosis without coma associated with type 2 diabetes mellitus (CMS/HCC) Test daily before all meals/snacks and once before bedtime. With 100 lancets and strips 1 each 3 Active carvedilol (Coreg) 12.5 mg tabletIndications :Essential hypertension take 1 tablet by mouth once daily with breakfast and 1 tablet with EVENING MEAL 180 tablet 3 4 Active tacrolimus (Prograf) 0.5 mg capsuleIndication s:Kidney transplanted Take 1 capsule (0.5 mg) by mouth in the morning and at bedtime. 180 capsule 3 4 Active mycophenolate (Myfortic) 180 mg EC tabletIndications :Kidney transplanted Take 4 tablets (720 mg) by mouth in the morning and at bedtime. 720 tablet 3 4 Active atorvastatin (Lipitor) 10 mg tabletIndications :Coronary artery disease, unspecified vessel or lesion type, unspecified whether angina present, unspecified whether [place] or transplanted heart Take 1 tablet (10 mg) by mouth every other day. 45 tablet 3 4 Active aspirin 81 mg EC tablet Take 81 mg by mouth in the morning. Active lisinopril 20 mg tabletIndications :Essential hypertension Take 1 tablet (20 mg) by mouth in the morning. 90 tablet 3 5 07/05/19 26 Active amLODIPine (Norvasc) 10 mg tabletIndications :Benign hypertensive heart disease without congestive heart failure Take 1 tablet (10 mg) by mouth once daily as directed. 90 tablet 3 5 07/29/19 26 Active cinacalcet (Sensipar) 30 mg tabletIndications :Aftercare following organ transplant Take 1 tablet every day by oral route. 90 tablet 3 5 Active sildenafil (Revatio) 20 mg tabletIndications :Pulmonary hypertension (CMS/HCC) take 1 tablet by mouth three times a day 270 tablet 3 5 Active aMILoride (Midamor) 5 mg tabletIndications :Hypomagnesemia,K idney replaced by transplant Take 1 tablet (5 mg) by mouth in the morning. 90 tablet 3 5 10/29/19 26 Active Active Problems Problem Noted Date Diagnosed [...] Encounters Date Type Department Care Team Description 11/10/2024 Telephone [facility] Transplant [address] [place] [address] Sandie Cintron MA 10/28/2024 Refill [facility] Transplant [address] [place] [address] Cat Turner MA Hypomagnesemia; Kidney replaced by transplant 10/25/2024 Refill [facility] Heart [facility] [address] [place] [address] Deanne Ulrich MA Pulmonary hypertension (CMS/HCC) from Last 3 Months Immunizations Immunization Administration Dates Next Due Influenza, Seasonal, Quadriv [...] Recorded Patient Health Questionnaire-2 Score 0 06/18/2024 [facility] [place] of Occupat ional Health - Occupational Stress Questionnaire Answer Date Recorded Do you feel stress - tense, restless, nervous, or anxious, or unable to sleep at night because your mind is troubled all the time - these days? Only a little 11/11/2022 [place] Safety & Environment Answer Date Rec orded Within the last year, have y ou been afraid of your partner or ex-partner? No 04/27/2023 Emotionally Abused Not on file 04/27/2023 Physically Abused Not on file 04/27/2023 Sexually Abused Not on file 04/27/2023 In the past year have you be en physically or sexually abused? Unrecognized value 04/27/2023 Transportation Answer Date Recorded In the [...] place to sleep or slept in a [place] (including now)? No 04/27/2023 Hunger Vital Sign [...] 06/18/2024 10:21 AM EST Plan of Treatment Upcoming Encounters Date Type Department Care Team (Late st Contact Info) Description 12/02/2024 1:45 PM EDT Follow-Up [facility] Transplant [address] [place] [id number] Jessica Fields, JOURNEYMAN PLUMBER [address] [facility] [address] [place] [address] Health Maintenance Due Date Last Done Comments CT Colonography 1950 Colonoscopy 1950 Colorectal Cancer Screening 1950 FIT-DNA 1950 FIT 1950 FOBT 1950 Medicare Annual Wellness (AWV) 1950 Sigmoidoscopy 1950 Diabetes: Retinopathy Screening 12/15/1961 Diabetes: Urine Protein Screening 12/15/1970 Zoster Vaccines (1 of 2) 12/15/1970 Adult Tetanus 12/15/1973 Pneumococcal Vaccine: 50+ Years (2 of 2 - PCV) 01/31/2017 02/01/2016 Diabetes: Hemoglobin A1C 10/07/2023 024, 07/09/2023, 04/28/2023, Additional history exists COVID-19 Vaccine ( season) 2024 02/18/2023, 04/30/2021, 08/02/2020, Additional history exists Influenza Vaccine (#1) 2025 , 04/30/2021, 02/09/2019, Additional history exists Fall Risk Screening 02/10/2025 02/11/2024 Depression Screening 06/18/2025 06/18/2024 HIB Vaccines Aged Out No longer eligi [...] - 6.0 % 07/09/2023 1:29 PM EST [facility] Estimated Average Glucose 160 mg/dL 07/09/2023 1:29 PM EST [facility] Blood Venous blood specimen / Unknown Venipuncture / Unknown 07/09/2023 9:13 AM EST 07/09/2023 9:13 AM EST us [facility] BLOOD ORDERABLES Final Resul t [facility] [address] [place] [address] from Last 3 Months or Most Recently Relevant to Health Maintenance Insurance MEDICARE Advance Directives * Full Code (Latest Code Status on File) Date Activated Date Inactivated Comments 04/27/2023 11:12 PM 04/30/2023 3:41 PM Care Teams Optimization Manager Relationship Specialty Start Date End Date Jericho Centeno MD [address] [place] [address] PCP - General 01/29/22 Jericho Abad, JOURNEYMAN PLUMBER [address] [place] [address] Nurse Practitioner Urology 04/16/22
--- OUTSIDE RECORDS SUMMARY | 2024-12-01 07:07 | XMS_ITS | CCD ---
Author Organization [facility] Care Team Providers Care Tv News Director Name Role Phone Tj Rao Unavailable MD Jericho Mccarthy Primary Care Provider MD Tj Rao Attending Provider Tj Rao Attending Unavailabl e NadJericho lofton Primary Care Unavailable Tj Rao Admitting Unavailabl e Maira, Tj Sullivan Admitting Unavailabl e Tj Rao Attending Unavailabl e Jericho Mccarthy Primary Care Unavailable MISC, DR ALVAREZ Attending Unavailable MISC, DR ALVAREZ Admitting Unavailable MISC, DR ALVAREZ Consulting Unavailable NADERER, DR JERICHO Floyd Primary Care Unavailable HOOPER BAY, DR MERRITT Consulting Unavailable [place]OPER [place]AY, DR MERRITT Attending Unavailable [place]OPER [place], DR MERRITT Admitting Unavailable NADERER, DR FERGUSON A Primary Care Unavailable MISC, DR ALVAREZ Attending Unavailable MISC, DR ALVAREZ Admitting Unavailable NADERER, DR FERGUSON A Primary Care Unavailable MISC, DR ALVAREZ Consulting Unavailable [place], DR MERRITT Consulting Unavailable [place], DR MERRITT Attending Unavailable NADERER, DR FERGUSON A Primary Care Unavailable [place], DR MERRITT Admitting Unavailable MISC, DR ALVAREZ Attending Unavailable MISC, DR ALVAREZ Admitting Unavailable NADERER, DR FERGUOSN A Primary Care Unavailable MISC, DR ALVAREZ [...] FABIO, DR JERICHO Floyd Primary Care Unavailable AIN ., DR WINTERS Consulting Unavailable HAY ., [...] Unavailable Jericho Mccarthy MD Primary Care Provider SANTANA LANDIN Attending Unavailable AZEB LEE Attending Unavailable Allergies Allergy Classification Reported Allergen(s) Allergy Type Date of Onset Reaction(s) Facility (12 sources) Non-steroidal anti-inflammator y agent Drug Intolerance 2 [facility] (1 source) NSAIDs; Translations: [NSAIDS (NON-STEROIDAL ANTI-INFLAMMATOR Y DRUG)] Propensity to adverse reactions to drug (disorder) 2 [facility] Repository Medications Current Medications Medication Drug Class(es) Dates Sig (Normalized) Sig (Original) aMILoride hydrochloride 5 mg oral tablet (6 sources) Potassium-sparing Diuretic Start: 01-19-2024 End: 01-18-2025 take 1 tablet by mouth in the morning aMILoride (Midamor) 5 MG tablet Take 5 mg by mouth in the morning. 01/19/2024 01/18/2025 Active amLODIPine 10 mg oral tablet (15 sources) Dihydropyridine Calcium Channel Swetha Start: 07-08-2017 take 10 mg by mouth once daily Amlodipine Active 10 MG PO Daily July 08, 2017 1:00am atorvastatin 10 mg oral tablet (14 sources) HMG-CoA Reductase Inhibitor Start: 10-04-2022 take [...] 90 Active carvedilol 3.125 mg oral tablet (20 sources) alpha-Adrenergic Swetha, beta-Adrenergic Swetha Start: 03-05-2022 [...] meals. Active cinacalcet 30 mg oral tablet (14 sources) Calcium-sensing Receptor Agonist Start: 03-05-2022 take 30 mg by mouth once daily Cinacalcet Active 30 MG PO Daily March 05, 2022 12:00am Cinacalcet HCl A ctive dicyclomine hydrochloride 20 mg oral tablet (1 source) Anticholinergic Start: 03-05-2022 take 20 mg by mouth twice daily Dicyclomine Active 20 MG PO Twice daily March 05, 2022 12:00am furosemide 20 mg oral tablet (8 sources) Loop Diuretic Start: 09-16-2023 take 1 [...] ml insulin glargine 100 unt/ml pen injector (14 sources) Insulin Analog Start: 08-05-2024 Ron Arceo en 100 UNIT/ML pen Indications: Type 2 diabetes mellitus with hyperglycemia, with long-term current use of insulin ([facility]) INJECT 20 UNITS SUBCUTANEOUSLY (UNDER THE SKIN) AT BEDTIME 15 mL 08/05/2024 Active Start: 05-21-2024 Basaglar KwikP en 100 UNIT/ML [...] 11-18-2023 End: 02-16-2024 insulin glargine (Basaglar K Rosanne) 100 UNIT/ML pen Indications: Type 2 diabetes mellitus with hyperglycemia, with long-term current use of insulin (CMS/HCC) INJECT 20 UNITS SUBCUTANEOUSLY AT BEDTIME 6 mL 3 11/18/2023 02/16/2024 Discontinued lisinopril 20 mg oral tablet (15 sources) Angiotensin Converting Enzyme Inhibitor Start: 01-07-2017 take 20 mg by mouth once daily Lisinopril Active 20 MG PO Daily January 07, 2017 12:00am Start: 01-07-2017 take 20 mg by mouth twice carmelo y Lisinopril Active 20 MG PO Twice daily January 07, 2017 12:00am Magnesium (1 source) Magnesium Active magnesium oxide 400 mg oral tablet (14 sources) Start: 03-05-2022 take 1200 mg by [...] Active metFORMIN hydrochloride 500 mg oral tablet (12 sources) Biguanide Start: 04-29-2024 take 1 tablet [...] acid 180 mg delayed release oral tablet (13 sources) Antimetabolite Immunosuppressant take 4 tablets by mouth in the morning mycophenolate (Myfortic) 180 MG EC tablet Take 4 tablets by mouth in the morning and 4 tablets before bedtime. Active take 2 tablets by mo [facility] every twelve hours Mycophenolate Sodium 180 MG 2 tablets Or ally Twice a day Active omeprazole 20 mg delayed release oral tablet (12 sources) Proton Pump Inhibitor Start: 04-30-2023 take 1 tablet by mouth before mealtime omeprazole OTC (PriLOSEC OTC) 20 MG EC tablet Take 20 mg by mouth in the morning. Take before meals. 04/30/2023 Active sildenafil 20 mg oral tablet (14 sources) Phosphodiesterase 5 Inhibitor Start: 11-29-2022 take [...] tacrolimus 0.5 mg extended release oral capsule (14 sources) Calcineurin Inhibitor Immunosuppressant Start: 03-05-2022 take [...] aspirin 81 mg delayed release oral tablet (8 sources) Platelet Aggregation Inhibitor, Nonsteroidal Anti-inflammatory Drug [...] MCG IVP MWF DURING DIALYSIS PER [facility] (08/26/18) 5 ml sodium ferric gluconate complex 12.5 mg/ml injection (2 sources) Start: 07-08-2017 End: 03-05-2022 Sodium Ferric Gluconat-Sucrose (Ferrlecit) 62.5 mg/5 mL Solution Discontinued 125 MG IV Q14D July 08, 2017 1:00am March 05, 2022 7:07am RECEIVES FERRLECIT 125MG IVP EVERY OTHER FRIDAY (DOSE DUE 08/26/18 PER [facility]) Problems Active Problems Problem Classification Problem Date Documented Date Episodic/Chronic Cataract (12 sources) Cataract; Translations: [Unspecified cataract] Onset: 3 05-02-2023 Chronic Chronic kidney disease (20 sources) Dependence on renal dialysis; Translations: [Dependence on renal dialysis] Onset: 0 08-26-2018 Chronic Chronic obstructive pulmonary disease and bronchiectasis (12 sources) Chronic obstructive lung disease; Translations: [Chronic obstructive pulmonary disease, unspecified] Onset: 3 05-22-2023 Chronic Congestive heart failure; nonhypertensive (14 sources) Chronic heart failure co-occurrent with normal ejection fraction; Translations: [Chronic diastolic (congestive) heart failure] Onset: 2 05-22-2023 Chronic Coronary atherosclerosis and other heart disease (14 sources) Coronary atherosclerosis; Translations: [Atherosclerotic heart disease of [place] coronary artery without angina pectoris] Onset: 2 05-02-2023 Chronic Diabetes mellitus with complications (18 sources) Hyperglycemia due to type 2 diabetes mellitus; Translations: [Type 2 diabetes mellitus with hyperglycemia] Onset: 4 05-22-2023 Chronic Disorders of lipid metabolism (13 sources) Pure hypercholesterolemia, unspecified; Translations: [Mixed hyperlipidemia] [...] disorders] 02-02-2024 Episodic Peripheral and visceral atherosclerosis (14 sources) Peripheral vascular disease; Translations: [Peripheral vascular [...] [CONTACT W/AND (SUSP) EXPOS COVID-19] Onset: 2 Past or Other Problems Problem Classification Problem Date Documented Da te Episodic/Chronic Acute and unspecified renal failure (12 sources) Acute renal failure syndrome; Translations: [Acute [...] 2 Episodic Other aftercare (1 source) Other usp (current) drug therapy; Translations: [OTH PRISON CURRENT DRUG THERAPY] Onset: 2 Episodic Other gastrointestinal disorders (3 sources) Diarrhea, unspecified; Translations: [Diarrhea] Onset: 2 Resolved: 2 Episodic Other gastrointestinal disorders (1 source) Fecal urgency Onset: 2 Resolved: 2 Episodic Other non-epithelial cancer of skin (14 sources) Basal cell carcinoma of dorsum of nose; Translations: [Basal cell carcinoma of skin of nose] Onset: 3 05-02-2023 Episodic Pleurisy; pneumothorax; pulmonary collapse (12 sources) Pleurisy with effusion; Translations: [Pleural effusion, not elsewhere classified] Onset: 3 04-16-2023 Episodic Residual codes; unclassified (12 sources) At risk for infection; Translations: [Personal history of immunosupression therapy] Onset: 2 05-02-2023 Episodic Results Test Name Value Interpretation Reference Range Facility 11-23-2024 36 Standing labs completed, will mail once we get dr whitehead. [facility] 11-22-2024 36 Patient is calling back, would like order mailed to home. Thank you [facility] 11-10-2024 36 Patient is andreiain almas an updated standing lab order to be mailed to his home. Address confirmed. Thank you This phone message was created by the Ambulatory float staff. If you need client support administrator follow up regarding this patient, please make your appropriate clinic staff member aware. Thank you. [facility] ALL CBC WITH AUTO DIFFon BASOPHILS ABSOLUTE AUTO 0 [facility] Basophils/100 WBC (Bld) 0.7 % 0.2 - 2.0 % [facility] Eosinophils/100 WBC (Bld) 3 % 0.9 - 7.0 % [facility] Erythrocyte distribution width (RBC) [Ratio] 14.1 % 11.0 - 15.0 % [facility] Hematocrit (Bld) [Volume fraction] 36.3 % Low 42.0 - 54.0 % [facility] Hemoglobin (Bld) [Mass/Vol] 11.7 g/dL Low 14.0 - 18.0 g/dL [facility] IMMATURE GRANULOCYTES ABS AUTO 0.04 High [facility] Immature granulocytes/100 WBC (Bld) 0.7 % High 0.0 - 0.5 % [facility] Interpretation and review of laboratory results Abnormal [facility] LYMPHOCYTES ABSOLUTE AUTO 1 Low [facility] Lymphocytes/100 WBC (Bld) 16.7 % Low 20.5 - 60.0 % [facility] MCH (RBC) [Entitic mass] 29.1 pg 25.9 - 34.0 pg [facility] MCHC (RBC) [Mass/Vol] 32.2 g/dL 29.9 - 35.2 g/dL [facility] MCV (RBC) [Entitic vol] 90.3 fL 80.0 - 94.0 fL [facility] MONOCYTES ABSOLUTE AUTO 0.4 [facility] Monocytes/100 WBC (Bld) 6.8 % 1.7 - 12.0 % [facility] NEUTROPHILS ABSOLUTE AUTO 4.4 [facility] Neutrophils/100 WBC (Bld) 72.1 % 43.0 - 75.0 % [facility] Platelet mean volume (Bld) [Entitic vol] 9.5 fL 9.5 - 13.5 fL [facility] TBH EO # 0.2 [facility] TBH PLT 242 [facility] TB RBC 4.02 Low [facility] TB WBC 6.1 [facility] Follow-Upon 06-18-2024 Follow-Up [id number] Roger Kerr 1950 [facility] Provider Department Center 06/18/2024 [id number]-[id number] NEPHROLOGI*TXP None Family History Problem Relation Age of Onset Diabetes Mother Hypertension Mother Coronary artery disease Mother Other Mother Cystic kidney disease Mother Hypertension Father Skin cancer Father Cystic kidney disease Father Cystic kidney disease Sister Heart disease Brother ALS Brother Cystic kidney disease Brother Family Status - Relation Status Age at Mother Father Sister Brother Level of Service:09511 [place] OFFICE/OUTPATIENT ESTABLISHED MOD MDM 30 MIN () Reason for Visit and Comments: Kidney Follow-up [[id number]] - NO CONCERNS Normal [facility] Office Visiton 06-09-2024 Follow-up visit [id number] Roger Kerr 1950 M Date Provider Department Center 06/09/2024 [id number] LEE Family History Problem Relation Age of Onset Diabetes Mother Hypertension Mother Coronary artery disease Mother Other Mother Cystic kidney disease Mother Hypertension Father Skin cancer Father Cystic kidney disease Father Cystic kidney disease Sister Heart disease Brother ALS Brother Cystic kidney disease Brother Family Status - Relation Status Age at Mother Father Sister Brother Level of Service:79679 [place] OFFICE/OUTPATIENT ESTABLISHED LOW MDM 20 MIN Normal [facility] ALL CBC WITH AUTO DIFFon BASOPHILS ABSOLUTE AUTO 0 [facility] Basophils/100 WBC (Bld) 0.9 % 0.2 - 2.0 % [facility] Eosinophils/100 WBC (Bld) 5.4 % 0.9 - 7.0 % [facility] Erythrocyte distribution width (RBC) [Ratio] 13.9 % 11.0 - 15.0 % [facility] Hematocrit (Bld) [Volume fraction] 35 % Low 42.0 - 54.0 % [facility] Hemoglobin (Bld) [Mass/Vol] 11.2 g/dL Low 14.0 - 18.0 g/dL [facility] IMMATURE GRANULOCYTES ABS AUTO 0.05 High [facility] Immature granulocytes/100 WBC (Bld) 1.5 % High 0.0 - 0.5 % [facility] Interpretation and review of laboratory results Abnormal [facility] LYMPHOCYTES ABSOLUTE AUTO 0.7 Low [facility] Lymphocytes/100 WBC (Bld) 22 % 20.5 - 60.0 % [facility] MCH (RBC) [Entitic mass] 29.5 pg 25.9 - 34.0 pg [facility] MCHC (RBC) [Mass/Vol] 32 g/dL 29.9 - 35.2 g/dL [facility] MCV (RBC) [Entitic vol] 92.1 fL 80.0 - 94.0 fL [facility] MONOCYTES ABSOLUTE AUTO 0.5 [facility] Monocytes/100 WBC (Bld) 15.2 % High 1.7 - 12.0 % [facility] NEUTROPHILS ABSOLUTE AUTO 1.9 [facility] Neutrophils/100 WBC (Bld) 55 % 43.0 - 75.0 % [facility] Platelet mean volume (Bld) [Entitic vol] 9.5 fL 9.5 - 13.5 fL [facility] TBH EO # 0.2 [facility] TBH PLT 252 [facility] TB RBC 3.8 Low [facility] WBC 3.4 Low [facility] ALL CBC WITH AUTO DIFFon BASOPHILS ABSOLUTE AUTO 0.1 [facility] Basophils/100 WBC (Bld) 0.7 % 0.2 - 2.0 % [facility] Eosinophils/100 WBC (Bld) 3.6 % 0.9 - 7.0 % [facility] Erythrocyte distribution width (RBC) [Ratio] 14 % 11.0 - 15.0 % [facility] Hematocrit (Bld) [Volume fraction] 36 % Low 42.0 - 54.0 % [facility] Hemoglobin (Bld) [Mass/Vol] 11.7 g/dL Low 14.0 - 18.0 g/dL [facility] IMMATURE GRANULOCYTES ABS AUTO 0.04 High [facility] Immature granulocytes/100 WBC (Bld) 0.6 % High 0.0 - 0.5 % [facility] Interpretation and review of laboratory results Abnormal [facility] LYMPHOCYTES ABSOLUTE AUTO 0.9 Low [facility] Lymphocytes/100 WBC (Bld) 13.9 % Low 20.5 - 60.0 % [facility] MCH (RBC) [Entitic mass] 29.3 pg 25.9 - 34.0 pg [facility] MCHC (RBC) [Mass/Vol] 32.5 g/dL 29.9 - 35.2 g/dL [facility] MCV (RBC) [Entitic vol] 90.2 fL 80.0 - 94.0 fL [facility] MONOCYTES ABSOLUTE AUTO 0.6 [facility] Monocytes/100 WBC (Bld) 8.2 % 1.7 - 12.0 % [facility] NEUTROPHILS ABSOLUTE AUTO 4.9 [facility] Neutrophils/100 WBC (Bld) 73 % 43.0 - 75.0 % [facility] Platelet mean volume (Bld) [Entitic vol] 8.9 fL Low 9.5 - 13.5 fL [facility] TBH EO # 0.2 [facility] TB PLT 301 [facility] RBC 3.99 Low [facility] WBC 6.7 [facility] 36on 04-01-2024 36 Regarding echo resul t from 03/23/2024: MD Lurdes Stallings MA His echo overall was okay. He just needs a regular follow-up. Spoke with patient and scheduled him a follow up with Jennifer Egan CNP on 05/13/2024. Normal [facility] ALL CBC WITH AUTO DIFFon BASOPHILS ABSOLUTE AUTO 0 [facility] Basophils/100 WBC (Bld) 0.5 % 0.2 - 2.0 % [facility] Eosinophils/100 WBC (Bld) 2.7 % 0.9 - 7.0 % [facility] Erythrocyte distribution width (RBC) [Ratio] 13.7 % 11.0 - 15.0 % [facility] Hematocrit (Bld) [Volume fraction] 36.6 % Low 42.0 - 54.0 % [facility] Hemoglobin (Bld) [Mass/Vol] 12.1 g/dL Low 14.0 - 18.0 g/dL [facility] IMMATURE GRANULOCYTES ABS AUTO 0.03 [facility] Immature granulocytes/100 WBC (Bld) 0.5 % 0.0 - 0.5 % [facility] Interpretation and review of laboratory results Abnormal [facility] LYMPHOCYTES ABSOLUTE AUTO 0.9 Low [facility] Lymphocytes/100 WBC (Bld) 13.3 % Low 20.5 - 60.0 % [facility] MCH (RBC) [Entitic mass] 29.3 pg 25.9 - 34.0 pg [facility] MCHC (RBC) [Mass/Vol] 33.1 g/dL 29.9 - 35.2 g/dL [facility] MCV (RBC) [Entitic vol] 88.6 fL 80.0 [...] fL [facility] TBH EO # 0.2 [facility] TBH PLT 262 [facility] TBH RBC 4.13 Low [facility] TBH WBC 6.6 [facility] Documentationon 03-11-2024 Documentation [id number] Roger Kerr Tyson 1950 M Date Provider Department Center 03/11/2024 [...] Father Sister Brother [facility] 29on 02-11-2024 29 Addended by: SANTANA LANDIN on: 07/11/2024 11:41 PM Modules accepted: Level of Service [facility] Follow-Upon 02-11-2024 Follow-Up [id number] Roger Kerr Tyson 1950 M Date Provider Department Center 02/11/2024 [id number] LANDIN None Family History Problem Relation Age of Onset Diabetes Mother Hypertension Mother Coronary artery disease Mother Other Mother Cystic kidney disease Mother Hypertension Father Skin cancer Father Cystic kidney disease Father Cystic kidney disease Sister Heart disease Brother ALS Brother Cystic kidney disease Brother Family Status - Relation Status Age at Mother Father Sister Brother Level of Service:75700 [place] OFFICE/OUTPATIENT ESTABLISHED MOD MDM 30 MIN Reason for Visit and Comments: Kidney Follow-up [[id number]] - Pt has no concerns at this time. Normal [facility] ALL CBC WITH AUTO DIFFon BASOPHILS ABSOLUTE AUTO 0.0 [facility] Basophils/100 WBC (Bld) 0.6 % 0.2 - 2.0 % [facility] Eosinophils/100 WBC (Bld) 3.1 % 0.9 - 7.0 % [facility] Erythrocyte distribution width (RBC) [Ratio] 13.6 % 11.0 - 15.0 % [facility] Hematocrit (Bld) [Volume fraction] 36.0 % Low 42.0 - 54.0 % [facility] Hemoglobin (Bld) [Mass/Vol] 12.3 g/dL Low 14.0 - 18.0 g/dL [facility] IMMATURE GRANULOCYTES ABS AUTO 0.01 [facility] Immature granulocytes/100 WBC (Bld) 0.1 % 0.0 - 0.5 % [facility] Interpretation and review of laboratory results Abnormal [facility] LYMPHOCYTES ABSOLUTE AUTO 0.8 Low [facility] Lymphocytes/100 WBC (Bld) 11.8 % Low 20.5 - 60.0 % [facility] MCH (RBC) [Entitic mass] 29.9 pg 25.9 - 34.0 pg [facility] MCHC (RBC) [Mass/Vol] 34.2 g/dL 29.9 - 35.2 g/dL [facility] MCV (RBC) [Entitic vol] 87.4 fL 80.0 - 94.0 fL [facility] MONOCYTES ABSOLUTE AUTO 0.5 [facility] Monocytes/100 WBC (Bld) 7.7 % 1.7 - 12.0 % [facility] NEUTROPHILS ABSOLUTE AUTO 5.4 [facility] Neutrophils/100 WBC (Bld) 76.7 % High 43.0 - 75.0 % [facility] Platelet mean volume (Bld) [Entitic vol] 9.4 fL Low 9.5 - 13.5 fL [facility] EO # 0.2 [facility] PLT 233 [facility] RBC 4.12 Low [facility] WBC 7.1 [facility] Orders Onlyon 01-16-2024 Orders Only [id number] Roger Kerr 1950 M Date Provider Department [...] Father Sister Brother [facility] ALL CBC WITH AUTO DIFFon BASOPHILS ABSOLUTE AUTO 0.0 [facility] Basophils/100 WBC (Bld) 0.5 % 0.2 - 2.0 % [facility] Eosinophils/100 WBC (Bld) 6.0 % 0.9 - 7.0 % [facility] Erythrocyte distribution width (RBC) [Ratio] 13.9 % 11.0 - 15.0 % [facility] Hematocrit (Bld) [Volume fraction] 35.3 % Low 42.0 - 54.0 % [facility] Hemoglobin (Bld) [Mass/Vol] 11.7 g/dL Low 14.0 - 18.0 g/dL [facility] IMMATURE GRANULOCYTES ABS AUTO 0.03 [facility] Immature granulocytes/100 WBC (Bld) 0.5 % 0.0 - 0.5 % [facility] Interpretation and review of laboratory results Abnormal [facility] LYMPHOCYTES ABSOLUTE AUTO 0.9 Low [facility] Lymphocytes/100 WBC (Bld) 13.1 % Low 20.5 - 60.0 % [facility] MCH (RBC) [Entitic mass] 29.8 pg 25.9 - 34.0 pg [facility] MCHC (RBC) [Mass/Vol] 33.1 g/dL 29.9 - 35.2 g/dL [facility] MCV (RBC) [Entitic vol] 90.1 fL 80.0 - 94.0 fL [facility] MONOCYTES ABSOLUTE AUTO 0.5 [facility] Monocytes/100 WBC (Bld) 7.6 % 1.7 - 12.0 % [facility] NEUTROPHILS ABSOLUTE AUTO 4.7 [facility] Neutrophils/100 WBC (Bld) 72.3 % 43.0 - 75.0 % [facility] Platelet mean volume (Bld) [Entitic vol] 9.3 fL Low 9.5 - 13.5 fL [facility] TBH EO # 0.4 [facility] TB PLT 253 [facility] TB RBC 3.92 Low [facility] TB WBC 6.5 [facility] FK506 (TACROLIMUS) WHOLE BLO ODon 10-06-2022 Tacrolimus (FK506), Blood 3.8 ng/mL Normal 2.0-20.0 [facility] Comment on above: Result Comment: Trou gh (immediately following transplant) 15.0 . Trough (steady state, 2 weeks or more after transplant): 3.0 - 8.0 . Performed by LC-MS/MS technology. Performed By: #### U CLINT, CMP, LIPID, DBIL, PHOS, MG #### [facility] [address] [place] [address] Dr. Brea Causey BILIRUBIN CONJUGATED (DIRECT )on 10-03-2022 BILI, CONJUGATED 0.1 mg/dL Normal 0.0-0.2 [facility] Comment on above: Performed By: #### C BC #### [facility] [address] [place] [address] Dr. Brea Causey CBC AUTO DIFFon 10-03-2022 BASO # 0.0 103/ul Normal 0.0-0.1 [facility] Comment on above: Performed By: #### U CLINT, CMP, LIPID, DBIL, PHOS, MG #### [facility] [address] [place] [address] Dr. Brea Causey Basophils/100 WBC (Bld) 0.5 % Normal 0.2-2.0 [facility] Comment on above: Performed By: #### U CLINT, CMP, LIPID, DBIL, PHOS, MG #### [facility] [address] [place] [address] Dr. Brea Causey EO # 0.1 103/ul Normal 0.0-0.7 [facility] Comment on above: Performed By: #### U CLINT, CMP, LIPID, DBIL, PHOS, MG #### [facility] [address] [place] [address] Dr. Brea Causey Eosinophils/100 WBC (Bld) 2.3 % Normal 0.9-7.0 [facility] Comment on above: Performed By: #### U CLINT, CMP, LIPID, DBIL, PHOS, MG #### [facility] [address] [place] [address] Dr. Brea Causey Erythrocyte distribution width (RBC) [Ratio] 13.2 % Normal 11.0-15.0 [facility] Comment on above: Performed By: #### U CLINT, CMP, LIPID, DBIL, PHOS, MG #### [facility] [address] [place] [address] Dr. Brea Causey Hematocrit (Bld) [Volume fraction] 35.0 % Critically low 42.0-54.0 [facility] Comment on above: Performed By: #### U CLINT, CMP, LIPID, DBIL, PHOS, MG #### [facility] [address] [place] [address] Dr. Brea Causey Hemoglobin (Bld) [Mass/Vol] 11.7 g/dL Critically low 14.0-18.0 [facility] Comment on above: Performed By: #### U CLINT, CMP, LIPID, DBIL, PHOS, MG #### [facility] [address] [place] [address] Dr. Brea Causey IG # 0.06 10e3/ul Critically high 0.00-0.03 [facility] Comment on above: Performed By: #### U CLINT, CMP, LIPID, DBIL, PHOS, MG #### [facility] [address] [place] [address] Dr. Brea Causey IG % 1.1 % Critically high 0.0-0.5 [facility] Comment on above: Performed By: #### U CLINT, CMP, LIPID, DBIL, PHOS, MG #### [facility] [address] [place] [address] Dr. Brea Causey LYMPH # 0.8 103/ul Critically low 1.2-3.8 [facility] Comment on above: Performed By: #### U CLINT, CMP, LIPID, DBIL, PHOS, MG #### [facility] [address] [place] [address] Dr. Brea Causey Lymphocytes/100 WBC (Bld) 14.9 % Critically low 20.5-60.0 [facility] Comment on above: Performed By: #### U CLINT, CMP, LIPID, DBIL, PHOS, MG #### [facility] [address] [place] [address] Dr. Brea Causey MANUAL DIFF REQ NO Normal [facility] Comment on above: Performed By: #### U CLINT, CMP, LIPID, DBIL, PHOS, MG #### [facility] [address] [place] [address] Dr. Brea Causey MCH (RBC) [Entitic mass] 28.8 pg Normal 25.9-34.0 [facility] Comment on above: Performed By: #### U CLINT, CMP, LIPID, DBIL, PHOS, MG #### [facility] [address] [place] [address] Dr. Brea Causey MCHC (RBC) [Mass/Vol] 33.4 g/dL Normal 29.9-35.2 [facility] Comment on above: Performed By: #### U CLINT, CMP, LIPID, DBIL, PHOS, MG #### [facility] [address] [place] [address] Dr. Brea Causey MCV (RBC) [Entitic vol] 86.2 fL Normal 80.0-94.0 [facility] Comment on above: Performed By: #### U CLINT, CMP, LIPID, DBIL, PHOS, MG #### [facility] [address] [place] [address] Dr. Brea Causey MONO # 0.5 103/ul Normal 0.3-0.8 [facility] Comment on above: Performed By: #### U CLINT, CMP, LIPID, DBIL, PHOS, MG #### [facility] [address] [place] [address] Dr. Brea Causey Monocytes/100 WBC (Bld) 9.1 % Normal 1.7-12.0 [facility] Comment on above: Performed By: #### U CLINT, CMP, LIPID, DBIL, PHOS, MG #### [facility] [address] [place] [address] Dr. Brea Causey NEUT # 4.1 103/ul Normal 1.4-6.5 [facility] Comment on above: Performed By: #### U CLINT, CMP, LIPID, DBIL, PHOS, MG #### [facility] [address] [place] [address] Dr. Brea Causey Neutrophils/100 WBC (Bld) 72.1 % Normal 43.0-75.0 [facility] Comment on above: Performed By: #### U CLINT, CMP, LIPID, DBIL, PHOS, MG #### [facility] [address] [address] [address] Brea Causey Platelet mean volume (Bld) [Entitic vol] 9.0 fL Critically low 9.5-13.5 [facility] Comment on above: Performed By: #### U CLINT, CMP, LIPID, DBIL, PHOS, MG #### [facility] [address] [address] [address] Brea Causey PLT 211 103/ul Normal 150-450 [facility] Comment on above: Performed By: #### U CLINT, CMP, LIPID, DBIL, PHOS, MG #### [facility] [address] [place] [address] Dr. Brea Causey RBC 4.06 106/ul Critically low 4.70-6.10 [facility] Comment on above: Performed By: #### U CLINT, CMP, LIPID, DBIL, PHOS, MG #### [facility] [address] [place] [address] Dr. Brea Causey WBC 5.6 103/ul Normal 4.0-11.0 [facility] Comment on above: Performed By: #### U CLINT, CMP, LIPID, DBIL, PHOS, MG #### [facility] [address] [place] [address] Dr. Brea Causey LIPID PROFILEon 10-03-2022 CHOL-HDL RATIO NORM SEE BELOW Normal [facility] Comment on above: Result Comment: 3.3 - 4.4 LOW RISK 4.4 - 7.1 AVERAGE RISK 7.1 - 11.0 MODERATE RISK >11.0 HIGH RISK Performed By: #### C BC #### [facility] [address] [place] [address] Dr. Brea Causey Cholesterol [Mass/Vol] 93 mg/dL Normal <=200 [facility] Comment on above: Performed By: #### C BC #### [facility] [address] [place] [address] Dr. Brea Causey Cholesterol in HDL [Mass/Vol] 43 mg/dL Normal 40-60 [facility] Comment on above: Performed By: #### C BC #### [facility] [address] [place] [address] Dr. Brea Causey Cholesterol in LDL [Mass/Vol] 37.6 mg/dL Normal [facility] Comment on above: Performed By: #### C BC #### [facility] [address] [address] [address] Brea Causey Cholesterol.total/Chol esterol in HDL [Mass ratio] 2.2 {ratio} Normal [facility] Comment on above: Performed By: #### C BC #### [facility] [address] [place] [address] Dr. Brea Causey HDL NORMAL > or = 60 mg/dl - LO W CARDIOVASCULAR RISK <40 mg/dl - HIGH CARDIOVASCULAR RISK Normal [facility] Comment on above: Performed By: #### C BC #### [facility] [address] [place] [address] Dr. Brea Causey LDL CALC NORMAL SEE BELOW Normal [facility] Comment on above: Result Comment: <100 mg/dl OPTIMAL 100 - 129 mg/dl NEAR OR ABOVE OPTIMAL 130 - 159 mg/dl BORDERLINE HIGH 160 - 189 mg/dl HIGH >190 mg/dl VERY HIGH Performed By: #### C BC #### [facility] [address] [place] [address] Dr. Brea Causey Triglyceride [Mass/Vol] 62 mg/dL Normal <=150 [facility] Comment on above: Performed By: #### C BC #### [facility] [address] [place] [address] Dr. Brea Causey VLDL CALC 12.4 mg/dL Normal [facility] Comment on above: Performed By: #### C BC #### [facility] [address] [place] [address] Dr. Brea Causey MAGNESIUMon 10-03-2022 Magnesium [Mass/Vol] 1.5 mg/dL Critically low 1.8-2.4 [facility] Comment on above: Performed By: #### C BC #### [facility] [address] [place] [address] Dr. Brea Causey PHOSPHORUSon 10-03-2022 Phosphate [Mass/Vol] 4.4 mg/dL Normal 2.6-4.7 [facility] Comment on above: Performed By: #### C BC #### [facility] [address] [place] [address] Dr. Brea Causey PROF 14(COMP METB)on 023 Albumin [Mass/Vol] 3.8 g/dL Normal 3.4-5.0 [facility] Comment on above: Performed By: #### C BC #### [facility] [address] [place] [address] Dr. Brea Causey Albumin/Globulin [Mass ratio] 1.1 {ratio} Normal [facility] Comment on above: Performed By: #### C BC #### [facility] [address] [place] [address] Dr. Brea Causey ALP [Catalytic activity/Vol] 190 U/L Critically high 46-116 [facility] Comment on above: Performed By: #### C BC #### [facility] [address] [place] [address] Dr. Brea Causey ALT [Catalytic activity/Vol] 26 U/L Normal 16-63 [facility] Comment on above: Performed By: #### C BC #### [facility] [address] [place] [address] Dr. Brea Causey Anion gap [Moles/Vol] 15.3 mmol/L Normal [facility] Comment on above: Performed By: #### C BC #### [facility] [address] [place] [address] Dr. Brea Causey AST [Catalytic activity/Vol] 23 U/L Normal 15-37 [facility] Comment on above: Performed By: #### C BC #### [facility] [address] [place] [address] Dr. Brea Causey Bilirubin [Mass/Vol] 0.4 mg/dL Normal 0.2-1.0 [facility] Comment on above: Performed By: #### C BC #### [facility] [address] [address] [address] Brea Causey Calcium [Mass/Vol] 7.8 mg/dL Critically low 8.5-10.1 [facility] Comment on above: Performed By: #### C BC #### [facility] [address] [address] [address] Brea Causey Chloride [Moles/Vol] 97 mmol/L Critically low 98-107 [facility] Comment on above: Performed By: #### C BC #### [facility] [address] [place] [address] Dr. Brea Causey CO2 [Moles/Vol] 25.6 mmol/L Normal 21.0-32.0 [facility] Comment on above: Performed By: #### C BC #### [facility] [address] [place] [address] Dr. Brea Causey Creatinine [Mass/Vol] 1.03 mg/dL Normal 0.70-1.30 [facility] Comment on above: Performed By: #### C BC #### [facility] [address] [place] [address] Dr. Brea Causey EGFR-AF MONTENEGRIN >60 Normal >=60 [facility] Comment on above: Performed By: #### C BC #### [facility] [address] [place] [address] Dr. Brea Causey EGFR-NON AF MONTENEGRIN >60 Normal >=60 [facility] Comment on above: Performed By: #### C BC #### [facility] [address] [place] [address] Dr. Brea Causey Globulin (S) [Mass/Vol] 3.6 g/dL Normal [facility] Comment on above: Performed By: #### C BC #### [facility] [address] [place] [address] Dr. Brea Causey Glucose [Mass/Vol] 188 mg/dL Critically high 74-106 [facility] Comment on above: Performed By: #### C BC #### [facility] [address] [place] [address] Dr. Brea Causey Potassium [Moles/Vol] 4.9 mmol/L Normal 3.5-5.1 [facility] Comment on above: Performed By: #### C BC #### [facility] [address] [place] [address] Dr. Brea Causey Protein [Mass/Vol] 7.4 g/dL Normal 6.4-8.2 [facility] Comment on above: Performed By: #### C BC #### [facility] [address] [place] [address] Dr. Brea Causey Sodium [Moles/Vol] 133 mmol/L Critically low 136-145 [facility] Comment on above: Performed By: #### C BC #### [facility] [address] [place] [address] Dr. Brea Causey Urea nitrogen [Mass/Vol] 11.0 mg/dL Normal 7.0-18.0 [facility] Comment on above: Performed By: #### C BC #### [facility] [address] [place] [address] Dr. Brea Causey Urea nitrogen/Creatinine [Mass ratio] 10.7 mg/mg Normal [facility] Comment on above: Performed By: #### C BC #### [facility] [address] [place] [address] Dr. Brea Causey URIC ACID SERUMon 10-03-2022 Urate [Mass/Vol] 5.7 mg/dL Normal 3.5-7.2 [facility] Comment on above: Performed By: #### C BC #### [facility] [address] [place] [address] Dr. Brea Causey BK VIRUS PCR QUANTon 023 BKV DNA QUANT PCR PLASMA Negative Normal Negative [facility] Comment on above: Result Comment: No B K DNA detected. . The linear range of the assay is 22 - 100,000,000 IU/mL. Performed By: #### U CLINT, CMP, LIPID, DBIL, PHOS, MG #### [facility] [address] [place] [address] Dr. Brea Causey Log10 BKV DNA Plasma Normal [facility] Comment on above: Performed By: #### U CLINT, CMP, LIPID, DBIL, PHOS, MG #### [facility] [address] [address] [address] Brea Causey FK506 (TACROLIMUS) WHOLE BLO ODon 09-02-2022 Tacrolimus (FK506), Blood 3.8 ng/mL Normal 2.0-20.0 [facility] Comment on above: Result Comment: Trou gh (immediately following transplant) 15.0 . Trough (steady state, 2 weeks or more after transplant): 3.0 - 8.0 . Performed by LC-MS/MS technology. Performed By: #### U CLINT, CMP, LIPID, DBIL, PHOS, MG #### [facility] [address] [place] [address] Dr. Brea Causey TESTOSTERONE, FREE,DIRECT, T OTALon 09-01-2022 Free Testosterone(Direct) 9.7 pg/mL Normal 6.6-18.1 The [place] Comment on above: Result Comment: Perf ormed at: BN Performed By: #### U CLINT, CMP, LIPID, DBIL, PHOS, MG #### [facility] [address] [address] [address] Brea Causey Testosterone [Mass/Vol] 565 ng/dL Normal 264-916 [facility] Comment on above: Result Comment: Adul t male reference interval is based on a population of healthy nonobese males (BMI <30) between 19 and 39 years old. Steven, et.al. JCEM 2017,102;5201-3862. PMID: [id number]. Performed at: CB Performed By: #### U CLINT, CMP, LIPID, DBIL, PHOS, MG #### [facility] [address] [place] [address] Dr. Brea Causey BILIRUBIN CONJUGATED (DIRECT )on 08-30-2022 BILI, CONJUGATED 0.1 mg/dL Normal 0.0-0.2 [facility] Comment on above: Performed By: #### U CLINT, CMP, LIPID, DBIL, PHOS, MG #### [facility] [address] [address] [address] Brea Causey CBC AUTO DIFFon 08-30-2022 BASO # 0.0 103/ul Normal 0.0-0.1 [facility] Comment on above: Performed By: #### U CLINT, CMP, LIPID, DBIL, PHOS, MG #### [facility] [address] [place] [address] Dr. Brea Causey Basophils/100 WBC (Bld) 0.7 % Normal 0.2-2.0 [facility] Comment on above: Performed By: #### U CLINT, CMP, LIPID, DBIL, PHOS, MG #### [facility] [address] [place] [address] Dr. Brea Causey EO # 0.2 103/ul Normal 0.0-0.7 [facility] Comment on above: Performed By: #### U CLINT, CMP, LIPID, DBIL, PHOS, MG #### [facility] [address] [place] [address] Dr. Brea Causey Eosinophils/100 WBC (Bld) 3.6 % Normal 0.9-7.0 [facility] Comment on above: Performed By: #### U CLINT, CMP, LIPID, DBIL, PHOS, MG #### [facility] [address] [place] [address] Dr. Brea Causey Erythrocyte distribution width (RBC) [Ratio] 13.2 % Normal 11.0-15.0 [facility] Comment on above: Performed By: #### U CLINT, CMP, LIPID, DBIL, PHOS, MG #### [facility] [address] [place] [address] Dr. Brea Causey Hematocrit (Bld) [Volume fraction] 36.0 % Critically low 42.0-54.0 [facility] Comment on above: Performed By: #### U CLINT, CMP, LIPID, DBIL, PHOS, MG #### [facility] [address] [place] [address] Dr. Brea Causey Hemoglobin (Bld) [Mass/Vol] 12.2 g/dL Critically low 14.0-18.0 [facility] Comment on above: Performed By: #### U CLINT, CMP, LIPID, DBIL, PHOS, MG #### [facility] [address] [address] [address] Brea Causey IG # 0.07 10e3/ul Critically high 0.00-0.03 [facility] Comment on above: Performed By: #### U CLINT, CMP, LIPID, DBIL, PHOS, MG #### [facility] [address] [place] [address] Dr. Brea Causey IG % 1.2 % Critically high 0.0-0.5 [facility] Comment on above: Performed By: #### U CLINT, CMP, LIPID, DBIL, PHOS, MG #### [facility] [address] [place] [address] Dr. Brea Causey LYMPH # 0.9 103/ul Critically low 1.2-3.8 [facility] Comment on above: Performed By: #### U CLINT, CMP, LIPID, DBIL, PHOS, MG #### [facility] [address] [place] [address] Dr. Brea Causey Lymphocytes/100 WBC (Bld) 15.0 % Critically low 20.5-60.0 [facility] Comment on above: Performed By: #### U CLINT, CMP, LIPID, DBIL, PHOS, MG #### [facility] [address] [place] [address] Dr. Brea Causey MANUAL DIFF REQ NO Normal [facility] Comment on above: Performed By: #### U CLINT, CMP, LIPID, DBIL, PHOS, MG #### [facility] [address] [place] [address] Dr. Brea Causey MCH (RBC) [Entitic mass] 29.4 pg Normal 25.9-34.0 [facility] Comment on above: Performed By: #### U CLINT, CMP, LIPID, DBIL, PHOS, MG #### [facility] [address] [place] [address] Dr. Brea Causey MCHC (RBC) [Mass/Vol] 33.9 g/dL Normal 29.9-35.2 [facility] Comment on above: Performed By: #### U CLINT, CMP, LIPID, DBIL, PHOS, MG #### [facility] [address] [place] [address] Dr. Brea Causey MCV (RBC) [Entitic vol] 86.7 fL Normal 80.0-94.0 [facility] Comment on above: Performed By: #### U CLINT, CMP, LIPID, DBIL, PHOS, MG #### [facility] [address] [place] [address] Dr. Brea Causey MONO # 0.5 103/ul Normal 0.3-0.8 [facility] Comment on above: Performed By: #### U CLINT, CMP, LIPID, DBIL, PHOS, MG #### [facility] [address] [place] [address] Dr. Brea Causey Monocytes/100 WBC (Bld) 9.0 % Normal 1.7-12.0 [facility] Comment on above: Performed By: #### U CLINT, CMP, LIPID, DBIL, PHOS, MG #### [facility] [address] [place] [address] Dr. Brea Causey NEUT # 4.2 103/ul Normal 1.4-6.5 [facility] Comment on above: Performed By: #### U CLINT, CMP, LIPID, DBIL, PHOS, MG #### [facility] [address] [place] [address] Dr. Brea Causey Neutrophils/100 WBC (Bld) 70.5 % Normal 43.0-75.0 [facility] Comment on above: Performed By: #### U CLINT, CMP, LIPID, DBIL, PHOS, MG #### [facility] [address] [place] [address] Dr. Brea Causey Platelet mean volume (Bld) [Entitic vol] 8.7 fL Critically low 9.5-13.5 [facility] Comment on above: Performed By: #### U CLINT, CMP, LIPID, DBIL, PHOS, MG #### [facility] [address] [place] [address] Dr. Brea Causey PLT 247 103/ul Normal 150-450 [facility] Comment on above: Performed By: #### U CLINT, CMP, LIPID, DBIL, PHOS, MG #### [facility] [address] [address] [address] Brea Causey RBC 4.15 106/ul Critically low 4.70-6.10 [facility] Comment on above: Performed By: #### U CLINT, CMP, LIPID, DBIL, PHOS, MG #### [facility] [address] [address] [address] Brea Causey WBC 5.9 103/ul Normal 4.0-11.0 [facility] Comment on above: Performed By: #### U CLINT, CMP, LIPID, DBIL, PHOS, MG #### [facility] [address] [address] [address] Brea Causey GLYCOHEMOGLOBIN A1Con 2022 ADA RECOMMENDATION SEE BELOW Normal [facility] Comment on above: Result Comment: ADA RECOMMENDED LIMIT 4.0 - 6.0 ADA THERAPEUTIC TARGET < 7.0 ACTION SUGGESTED > 7.0 Performed By: #### U CLINT, CMP, LIPID, DBIL, PHOS, MG #### [facility] [address] [address] [address] Brea Causey Glucose [Mass/Vol] 177 mg/dL Normal [facility] Comment on above: Performed By: #### U CLINT, CMP, LIPID, DBIL, PHOS, MG #### [facility] [address] [address] [address] Brea Causey HbA1c (Bld) [Mass fraction] 7.8 % Critically high 4.5-6.2 [facility] Comment on above: Performed By: #### U CLINT, CMP, LIPID, DBIL, PHOS, MG #### [facility] [address] [place] [address] Dr. Brea Causey LIPID PROFILEon 08-30-2022 CHOL-HDL RATIO NORM SEE BELOW Normal [facility] Comment on above: Result Comment: 3.3 - 4.4 LOW RISK 4.4 - 7.1 AVERAGE RISK 7.1 - 11.0 MODERATE RISK >11.0 HIGH RISK Performed By: #### U CLINT, CMP, LIPID, DBIL, PHOS, MG #### [facility] [address] [address] [address] Brea Causey Cholesterol [Mass/Vol] 96 mg/dL Normal <=200 [facility] Comment on above: Performed By: #### U CLINT, CMP, LIPID, DBIL, PHOS, MG #### [facility] [address] [address] [address] Brea Causey Cholesterol in HDL [Mass/Vol] 48 mg/dL Normal 40-60 [facility] Comment on above: Performed By: #### U CILNT, CMP, LIPID, DBIL, PHOS, MG #### [facility] [address] [place] [address] Dr. Brea Causey Cholesterol in LDL [Mass/Vol] 40.2 mg/dL Normal [facility] Comment on above: Performed By: #### U CLINT, CMP, LIPID, DBIL, PHOS, MG #### [facility] [address] [place] [address] Dr. Brea Causey Cholesterol.total/Chol esterol in HDL [Mass ratio] 2.0 {ratio} Normal [facility] Comment on above: Performed By: #### U CLINT, CMP, LIPID, DBIL, PHOS, MG #### [facility] [address] [place] [address] Dr. Brea Causey HDL NORMAL > or = 60 mg/dl - LO W CARDIOVASCULAR RISK <40 mg/dl - HIGH CARDIOVASCULAR RISK Normal [facility] Comment on above: Performed By: #### U CLINT, CMP, LIPID, DBIL, PHOS, MG #### [facility] [address] [place] [address] Dr. Brea Causey LDL CALC NORMAL SEE BELOW Normal [facility] Comment on above: Result Comment: <100 mg/dl OPTIMAL 100 - 129 mg/dl NEAR OR ABOVE OPTIMAL 130 - 159 mg/dl BORDERLINE HIGH 160 - 189 mg/dl HIGH >190 mg/dl VERY HIGH Performed By: #### U CLINT, CMP, LIPID, DBIL, PHOS, MG #### [facility] [address] [address] [address] Brea Causey Triglyceride [Mass/Vol] 39 mg/dL Normal <=150 [facility] [facility] Comment on above: Performed By: #### U CLINT, CMP, LIPID, DBIL, PHOS, MG #### [facility] [address] [place] [address] Dr. Brea Causey VLDL CALC 7.8 mg/dL Normal [facility] Comment on above: Performed By: #### U CLINT, CMP, LIPID, DBIL, PHOS, MG #### [facility] [address] [place] [address] Dr. Brea Causey MAGNESIUMon 08-30-2022 Magnesium [Mass/Vol] 1.5 mg/dL Critically low 1.8-2.4 [facility] Comment on above: Performed By: #### U CLINT, CMP, LIPID, DBIL, PHOS, MG #### [facility] [address] [place] [address] Dr. Brea Causey PHOSPHORUSon 08-30-2022 Phosphate [Mass/Vol] 4.0 mg/dL Normal 2.6-4.7 [facility] Comment on above: Performed By: #### U CLINT, CMP, LIPID, DBIL, PHOS, MG #### [facility] [address] [place] [address] Dr. Brea Causey PROF 14(COMP METB)on 023 Albumin [Mass/Vol] 3.8 g/dL Normal 3.4-5.0 [facility] Comment on above: Performed By: #### U CLINT, CMP, LIPID, DBIL, PHOS, MG #### [facility] [address] [place] [address] Dr. Brea Causey Albumin/Globulin [Mass ratio] 1.1 {ratio} Normal [facility] Comment on above: Performed By: #### U CLINT, CMP, LIPID, DBIL, PHOS, MG #### [facility] [address] [place] [address] Dr. Brea Causey ALP [Catalytic activity/Vol] 177 U/L Critically high 46-116 [facility] Comment on above: Performed By: #### U CLINT, CMP, LIPID, DBIL, PHOS, MG #### [facility] [address] [address] [address] Brea Causey ALT [Catalytic activity/Vol] 27 U/L Normal 16-63 [facility] Comment on above: Performed By: #### U CLINT, CMP, LIPID, DBIL, PHOS, MG #### [facility] [address] [address] [address] Brea Causey Anion gap [Moles/Vol] 12.1 mmol/L Normal [facility] Comment on above: Performed By: #### U CLINT, CMP, LIPID, DBIL, PHOS, MG #### [facility] [address] [place] [address] Dr. Brea Causey AST [Catalytic activity/Vol] 19 U/L Normal 15-37 [facility] Comment on above: Performed By: #### U CLINT, CMP, LIPID, DBIL, PHOS, MG #### [facility] [address] [place] [address] Dr. Brea Causey Bilirubin [Mass/Vol] 0.3 mg/dL Normal 0.2-1.0 [facility] Comment on above: Performed By: #### U CLINT, CMP, LIPID, DBIL, PHOS, MG #### [facility] [address] [place] [address] Dr. Brea Causey Calcium [Mass/Vol] 8.0 mg/dL Critically low 8.5-10.1 [facility] Comment on above: Performed By: #### U CLINT, CMP, LIPID, DBIL, PHOS, MG #### [facility] [address] [place] [address] Dr. Brea Causey Chloride [Moles/Vol] 96 mmol/L Critically low 98-107 [facility] Comment on above: Performed By: #### U CLINT, CMP, LIPID, DBIL, PHOS, MG #### [facility] [address] [place] [address] Dr. Brea Causey CO2 [Moles/Vol] 28.0 mmol/L Normal 21.0-32.0 [facility] Comment on above: Performed By: #### U CLINT, CMP, LIPID, DBIL, PHOS, MG #### [facility] [address] [address] [address] Brea Causey Creatinine [Mass/Vol] 1.07 mg/dL Normal 0.70-1.30 [facility] Comment on above: Performed By: #### U CLINT, CMP, LIPID, DBIL, PHOS, MG #### [facility] [address] [address] [address] Brea Causey EGFR-AF MONTENEGRIN >60 Normal >=60 [facility] Comment on above: Performed By: #### U CLINT, CMP, LIPID, DBIL, PHOS, MG #### [facility] [address] [place] [address] Dr. Brea Causey EGFR-NON AF MONTENEGRIN >60 Normal >=60 [facility] Comment on above: Performed By: #### U CLINT, CMP, LIPID, DBIL, PHOS, MG #### [facility] [address] [place] [address] Dr. Brea Causey Globulin (S) [Mass/Vol] 3.5 g/dL Normal [facility] Comment on above: Performed By: #### U CLINT, CMP, LIPID, DBIL, PHOS, MG #### [facility] [address] [place] [address] Dr. Brea Causey Glucose [Mass/Vol] 179 mg/dL Critically high 74-106 [facility] Comment on above: Performed By: #### U CLINT, CMP, LIPID, DBIL, PHOS, MG #### [facility] [address] [address] [address] Brea Causey Potassium [Moles/Vol] 5.1 mmol/L Normal 3.5-5.1 [facility] Comment on above: Performed By: #### U CLINT, CMP, LIPID, DBIL, PHOS, MG #### [facility] [address] [place] [address] Dr. Brea Causey Protein [Mass/Vol] 7.3 g/dL Normal 6.4-8.2 [facility] Comment on above: Performed By: #### U CLINT, CMP, LIPID, DBIL, PHOS, MG #### [facility] [address] [address] [address] Brea Causey Sodium [Moles/Vol] 131 mmol/L Critically low 136-145 [facility] Comment on above: Performed By: #### U CLINT, CMP, LIPID, DBIL, PHOS, MG #### [facility] [address] [place] [address] Dr. Brea Causey Urea nitrogen [Mass/Vol] 10.0 mg/dL Normal 7.0-18.0 [facility] Comment on above: Performed By: #### U CLINT, CMP, LIPID, DBIL, PHOS, MG #### [facility] [address] [place] [address] Dr. Brea Causey Urea nitrogen/Creatinine [Mass ratio] 9.3 mg/mg Normal [facility] Comment on above: Performed By: #### U CLINT, CMP, LIPID, DBIL, PHOS, MG #### [facility] [address] [place] [address] Dr. Brea Causey URIC ACID SERUMon 08-30-2022 Urate [Mass/Vol] 6.0 mg/dL Normal 3.5-7.2 [facility] Comment on above: Performed By: #### U CLINT, CMP, LIPID, DBIL, PHOS, MG #### [facility] [address] [place] [address] Dr. Brea Causey FK506 (TACROLIMUS) WHOLE BLO ODon 08-03-2022 Tacrolimus (FK506), Blood 3.2 ng/mL Normal 2.0-20.0 [facility] Comment on above: Result Comment: Trou gh (immediately following transplant) 15.0 . Trough (steady state, 2 weeks or more after transplant): 3.0 - 8.0 . Performed by LC-MS/MS technology. Performed By: #### C BC #### [facility] [address] [place] [address] Dr. Brea Causey BILIRUBIN CONJUGATED (DIRECT )on 08-01-2022 BILI, CONJUGATED 0.1 mg/dL Normal 0.0-0.2 [facility] Comment on above: Performed By: #### U CLINT, CMP, LIPID, DBIL, PHOS, MG #### [facility] [address] [place] [address] Dr. Brea Causey CBC AUTO DIFFon 08-01-2022 BASO # 0.0 103/ul Normal 0.0-0.1 [facility] Comment on above: Performed By: #### C BC #### [facility] [address] [place] [address] Dr. Brea Causey Basophils/100 WBC (Bld) 0.7 % Normal 0.2-2.0 [facility] Comment on above: Performed By: #### C BC #### [facility] [address] [place] [address] Dr. Brea Causey EO # 0.1 103/ul Normal 0.0-0.7 [facility] Comment on above: Performed By: #### C BC #### [facility] [address] [place] [address] Dr. Brea Causey Eosinophils/100 WBC (Bld) 2.4 % Normal 0.9-7.0 [facility] Comment on above: Performed By: #### C BC #### [facility] [address] [place] [address] Dr. Brea Causey Erythrocyte distribution width (RBC) [Ratio] 13.3 % Normal 11.0-15.0 [facility] Comment on above: Performed By: #### C BC #### [facility] [address] [place] [address] Dr. Brea Causey Hematocrit (Bld) [Volume fraction] 36.5 % Critically low 42.0-54.0 [facility] Comment on above: Performed By: #### C BC #### [facility] [address] [place] [address] Dr. Brea Causey Hemoglobin (Bld) [Mass/Vol] 12.1 g/dL Critically low 14.0-18.0 [facility] Comment on above: Performed By: #### C BC #### [facility] [address] [place] [address] Dr. Brea Causey IG # 0.07 10e3/ul Critically high 0.00-0.03 [facility] Comment on above: Performed By: #### C BC #### [facility] [address] [place] [address] Dr. Brea Causey IG % 1.2 % Critically high 0.0-0.5 [facility] Comment on above: Performed By: #### C BC #### [facility] [address] [place] [address] Dr. Brea Causey LYMPH # 0.9 103/ul Critically low 1.2-3.8 [facility] Comment on above: Performed By: #### C BC #### [facility] [address] [place] [address] Dr. Brea Causey Lymphocytes/100 WBC (Bld) 14.5 % Critically low 20.5-60.0 [facility] Comment on above: Performed By: #### C BC #### [facility] [address] [place] [address] Dr. Brea Causey MANUAL DIFF REQ NO Normal [facility] Comment on above: Performed By: #### C BC #### [facility] [address] [place] [address] Dr. Brea Causey MCH (RBC) [Entitic mass] 28.8 pg Normal 25.9-34.0 [facility] Comment on above: Performed By: #### C BC #### [facility] [address] [place] [address] Dr. Brea Causey MCHC (RBC) [Mass/Vol] 33.2 g/dL Normal 29.9-35.2 [facility] Comment on above: Performed By: #### C BC #### [facility] [address] [place] [address] Dr. Brea Causey MCV (RBC) [Entitic vol] 86.9 fL Normal 80.0-94.0 [facility] Comment on above: Performed By: #### C BC #### [facility] [address] [place] [address] Dr. Brea Causey MONO # 0.6 103/ul Normal 0.3-0.8 [facility] Comment on above: Performed By: #### C BC #### [facility] [address] [address] [address] Brea Causey Monocytes/100 WBC (Bld) 10.3 % Normal 1.7-12.0 [facility] Comment on above: Performed By: #### C BC #### [facility] [address] [address] [address] Brea Causey NEUT # 4.2 103/ul Normal 1.4-6.5 [facility] Comment on above: Performed By: #### C BC #### [facility] [address] [place] [address] Dr. Brea Causey Neutrophils/100 WBC (Bld) 70.9 % Normal 43.0-75.0 [facility] Comment on above: Performed By: #### C BC #### [facility] [address] [place] [address] Dr. Brea Causey Platelet mean volume (Bld) [Entitic vol] 9.1 fL Critically low 9.5-13.5 [facility] Comment on above: Performed By: #### C BC #### [facility] [address] [place] [address] Dr. Brea Causey PLT 248 103/ul Normal 150-450 [facility] Comment on above: Performed By: #### C BC #### [facility] [address] [place] [address] Dr. Brea Causey RBC 4.20 106/ul Critically low 4.70-6.10 [facility] Comment on above: Performed By: #### C BC #### [facility] [address] [place] [address] Dr. Brea Causey WBC 5.9 103/ul Normal 4.0-11.0 [facility] Comment on above: Performed By: #### C BC #### [facility] [address] [place] [address] Dr. Brea Causey LIPID PROFILEon 03-23-2023 CHOL-HDL RATIO NORM SEE BELOW Normal [facility] Comment on above: Result Comment: 3.3 - 4.4 LOW RISK 4.4 - 7.1 AVERAGE RISK 7.1 - 11.0 MODERATE RISK >11.0 HIGH RISK Performed By: #### U CLINT, CMP, LIPID, DBIL, PHOS, MG #### [facility] [address] [address] [address] Brea Causey Cholesterol [Mass/Vol] 95 mg/dL Normal <=200 [facility] Comment on above: Performed By: #### U CLINT, CMP, LIPID, DBIL, PHOS, MG #### [facility] [address] [address] [address] Brea Causey Cholesterol in HDL [Mass/Vol] 49 mg/dL Normal 40-60 [facility] Comment on above: Performed By: #### U CLINT, CMP, LIPID, DBIL, PHOS, MG #### [facility] [address] [address] [address] Brea Causey Cholesterol in LDL [Mass/Vol] 35.4 mg/dL Normal [facility] Comment on above: Performed By: #### U CLINT, CMP, LIPID, DBIL, PHOS, MG #### [facility] [address] [address] [address] Brea Causey Cholesterol.total/Chol esterol in HDL [Mass ratio] 1.9 {ratio} Normal [facility] Comment on above: Performed By: #### U CLINT, CMP, LIPID, DBIL, PHOS, MG #### [facility] [address] [address] [address] Brea Causey HDL NORMAL > or = 60 mg/dl - LO W CARDIOVASCULAR RISK <40 mg/dl - HIGH CARDIOVASCULAR RISK Normal [facility] Comment on above: Performed By: #### U CLINT, CMP, LIPID, DBIL, PHOS, MG #### [facility] [address] [place] [address] Dr. Brea Causey LDL CALC NORMAL SEE BELOW Normal [facility] Comment on above: Result Comment: <100 mg/dl OPTIMAL 100 - 129 mg/dl NEAR OR ABOVE OPTIMAL 130 - 159 mg/dl BORDERLINE HIGH 160 - 189 mg/dl HIGH >190 mg/dl VERY HIGH Performed By: #### U CLINT, CMP, LIPID, DBIL, PHOS, MG #### [facility] [address] [place] [address] Dr. Brea Causey Triglyceride [Mass/Vol] 53 mg/dL Normal <=150 [facility] Comment on above: Performed By: #### U CLINT, CMP, LIPID, DBIL, PHOS, MG #### [facility] [address] [address] [address] Brea Causey VLDL CALC 10.6 mg/dL Normal [facility] Comment on above: Performed By: #### U CLINT, CMP, LIPID, DBIL, PHOS, MG #### [facility] [address] [place] [address] Dr. Brea Causey MAGNESIUMon 08-01-2022 Magnesium [Mass/Vol] 1.5 mg/dL Critically low 1.8-2.4 [facility] Comment on above: Performed By: #### U CLINT, CMP, LIPID, DBIL, PHOS, MG #### [facility] [address] [place] [address] Dr. Brea Causey PHOSPHORUSon 08-01-2022 Phosphate [Mass/Vol] 3.8 mg/dL Normal 2.6-4.7 [facility] Comment on above: Performed By: #### U CLINT, CMP, LIPID, DBIL, PHOS, MG #### [facility] [address] [place] [address] Dr. Brea Causey PROF 14(COMP METB)on 023 Albumin [Mass/Vol] 4.1 g/dL Normal 3.4-5.0 [facility] Comment on above: Performed By: #### U CLINT, CMP, LIPID, DBIL, PHOS, MG #### [facility] [address] [place] [address] Dr. Brea Causey Albumin/Globulin [Mass ratio] 1.3 {ratio} Normal [facility] Comment on above: Performed By: #### U CLINT, CMP, LIPID, DBIL, PHOS, MG #### [facility] [address] [place] [address] Dr. Brea Causey ALP [Catalytic activity/Vol] 197 U/L Critically high 46-116 [facility] Comment on above: Performed By: #### U CLINT, CMP, LIPID, DBIL, PHOS, MG #### [facility] [address] [place] [address] Dr. Brea Causey ALT [Catalytic activity/Vol] 26 U/L Normal 16-63 [facility] Comment on above: Performed By: #### U CLINT, CMP, LIPID, DBIL, PHOS, MG #### [facility] [address] [place] [address] Dr. Brea Causey Anion gap [Moles/Vol] 12.6 mmol/L Normal [facility] Comment on above: Performed By: #### U CLINT, CMP, LIPID, DBIL, PHOS, MG #### [facility] [address] [place] [address] Dr. Brea Causey AST [Catalytic activity/Vol] 20 U/L Normal 15-37 [facility] Comment on above: Performed By: #### U CLINT, CMP, LIPID, DBIL, PHOS, MG #### [facility] [address] [place] [address] Dr. Brea Causey Bilirubin [Mass/Vol] 0.4 mg/dL Normal 0.2-1.0 [facility] Comment on above: Performed By: #### U CLINT, CMP, LIPID, DBIL, PHOS, MG #### [facility] [address] [place] [address] Dr. Brea Causey Calcium [Mass/Vol] 7.9 mg/dL Critically low 8.5-10.1 [facility] Comment on above: Performed By: #### U CLINT, CMP, LIPID, DBIL, PHOS, MG #### [facility] [address] [place] [address] Dr. Brea Causey Chloride [Moles/Vol] 97 mmol/L Critically low 98-107 [facility] Comment on above: Performed By: #### U CLINT, CMP, LIPID, DBIL, PHOS, MG #### [facility] [address] [place] [address] Dr. Brea Causey CO2 [Moles/Vol] 28.9 mmol/L Normal 21.0-32.0 [facility] Comment on above: Performed By: #### U CLINT, CMP, LIPID, DBIL, PHOS, MG #### [facility] [address] [place] [address] Dr. Brea Causey Creatinine [Mass/Vol] 0.98 mg/dL Normal 0.70-1.30 [facility] Comment on above: Performed By: #### U CLINT, CMP, LIPID, DBIL, PHOS, MG #### [facility] [address] [place] [address] Dr. Brea Causey EGFR-AF MONTENEGRIN >60 Normal >=60 [facility] Comment on above: Performed By: #### U CLINT, CMP, LIPID, DBIL, PHOS, MG #### [facility] [address] [place] [address] Dr. Brea Causey EGFR-NON AF MONTENEGRIN >60 Normal >=60 [facility] Comment on above: Performed By: #### U CLINT, CMP, LIPID, DBIL, PHOS, MG #### [facility] [address] [place] [address] Dr. Brea Causey Globulin (S) [Mass/Vol] 3.2 g/dL Normal [facility] Comment on above: Performed By: #### U CLINT, CMP, LIPID, DBIL, PHOS, MG #### [facility] [address] [place] [address] Dr. Brea Causey Glucose [Mass/Vol] 174 mg/dL Critically high 74-106 [facility] Comment on above: Performed By: #### U CLINT, CMP, LIPID, DBIL, PHOS, MG #### [facility] [address] [place] [address] Dr. Brea Causey Potassium [Moles/Vol] 4.5 mmol/L Normal 3.5-5.1 [facility] Comment on above: Performed By: #### U CLINT, CMP, LIPID, DBIL, PHOS, MG #### [facility] [address] [address] [address] Brea Causey Protein [Mass/Vol] 7.3 g/dL Normal 6.4-8.2 [facility] Comment on above: Performed By: #### U CLINT, CMP, LIPID, DBIL, PHOS, MG #### [facility] [address] [address] [address] Brea Causey Sodium [Moles/Vol] 134 mmol/L Critically low 136-145 [facility] Comment on above: Performed By: #### U CLINT, CMP, LIPID, DBIL, PHOS, MG #### [facility] [address] [place] [address] Dr. Brea Causey Urea nitrogen [Mass/Vol] 8.0 mg/dL Normal 7.0-18.0 [facility] Comment on above: Performed By: #### U CLINT, CMP, LIPID, DBIL, PHOS, MG #### [facility] [address] [place] [address] Dr. Brea Causey Urea nitrogen/Creatinine [Mass ratio] 8.2 mg/mg Normal [facility] Comment on above: Performed By: #### U CLINT, CMP, LIPID, DBIL, PHOS, MG #### [facility] [address] [place] [address] Dr. Brea Causey URIC ACID SERUMon 08-01-2022 Urate [Mass/Vol] 5.8 mg/dL Normal 3.5-7.2 [facility] Comment on above: Performed By: #### U CLINT, CMP, LIPID, DBIL, PHOS, MG #### [facility] [address] [place] [address] Dr. Brea Causey FK506 (TACROLIMUS) WHOLE BLO ODon 07-07-2022 Tacrolimus (FK506), Blood 3.6 ng/mL Normal 2.0-20.0 [facility] Comment on above: Result Comment: Trou gh (immediately following transplant) 15.0 . Trough (steady state, 2 weeks or more after transplant): 3.0 - 8.0 . Performed by LC-MS/MS technology. Performed By: #### C BC #### [facility] [address] [place] [address] Dr. Brea Causey BILIRUBIN CONJUGATED (DIRECT )on 07-04-2022 BILI, CONJUGATED 0.1 mg/dL Normal 0.0-0.2 [facility] Comment on above: Performed By: #### B KVIRUS #### [facility] [address] [place] [address] Dr. Brea Causey CBC AUTO DIFFon 07-04-2022 BASO # 0.0 103/ul Normal 0.0-0.1 [facility] Comment on above: Performed By: #### U CLINT, CMP, LIPID, DBIL, PHOS, MG #### [facility] [address] [place] [address] Dr. Brea Causey Basophils/100 WBC (Bld) 0.5 % Normal 0.2-2.0 [facility] Comment on above: Performed By: #### U CLINT, CMP, LIPID, DBIL, PHOS, MG #### [facility] [address] [place] [address] Dr. Brea Causey EO # 0.2 103/ul Normal 0.0-0.7 [facility] Comment on above: Performed By: #### U CLINT, CMP, LIPID, DBIL, PHOS, MG #### [facility] [address] [place] [address] Dr. Brea aCusey Eosinophils/100 WBC (Bld) 2.6 % Normal 0.9-7.0 [facility] Comment on above: Performed By: #### U CLINT, CMP, LIPID, DBIL, PHOS, MG #### [facility] [address] [place] [address] Dr. Brea Causey Erythrocyte distribution width (RBC) [Ratio] 13.3 % Normal 11.0-15.0 [facility] Comment on above: Performed By: #### U CLINT, CMP, LIPID, DBIL, PHOS, MG #### [facility] [address] [place] [address] Dr. Brea Causey Hematocrit (Bld) [Volume fraction] 37.2 % Critically low 42.0-54.0 [facility] Comment on above: Performed By: #### U CLINT, CMP, LIPID, DBIL, PHOS, MG #### [facility] [address] [place] [address] Dr. Brea Causey Hemoglobin (Bld) [Mass/Vol] 12.4 g/dL Critically low 14.0-18.0 [facility] Comment on above: Performed By: #### U CLINT, CMP, LIPID, DBIL, PHOS, MG #### [facility] [address] [place] [address] Dr. Brea Causey IG # 0.09 10e3/ul Critically high 0.00-0.03 [facility] Comment on above: Performed By: #### U CLINT, CMP, LIPID, DBIL, PHOS, MG #### [facility] [address] [place] [address] Dr. Brea Causey IG % 1.4 % Critically high 0.0-0.5 [facility] Comment on above: Performed By: #### U CLINT, CMP, LIPID, DBIL, PHOS, MG #### [facility] [address] [place] [address] Dr. Brea Causey LYMPH # 1.0 103/ul Critically low 1.2-3.8 [facility] Comment on above: Performed By: #### U CLINT, CMP, LIPID, DBIL, PHOS, MG #### [facility] [address] [place] [address] Dr. Brea Causey Lymphocytes/100 WBC (Bld) 15.2 % Critically low 20.5-60.0 [facility] Comment on above: Performed By: #### U CLINT, CMP, LIPID, DBIL, PHOS, MG #### [facility] [address] [place] [address] Dr. Brea Causey MANUAL DIFF REQ NO Normal [facility] Comment on above: Performed By: #### U CLINT, CMP, LIPID, DBIL, PHOS, MG #### [facility] [address] [place] [address] Dr. Brea Causey MCH (RBC) [Entitic mass] 28.8 pg Normal 25.9-34.0 [facility] Comment on above: Performed By: #### U CLINT, CMP, LIPID, DBIL, PHOS, MG #### [facility] [address] [place] [address] Dr. Brea Causey MCHC (RBC) [Mass/Vol] 33.3 g/dL Normal 29.9-35.2 [facility] Comment on above: Performed By: #### U CLINT, CMP, LIPID, DBIL, PHOS, MG #### [facility] [address] [place] [address] Dr. Brea Causey MCV (RBC) [Entitic vol] 86.5 fL Normal 80.0-94.0 [facility] Comment on above: Performed By: #### U CLINT, CMP, LIPID, DBIL, PHOS, MG #### [facility] [address] [place] [address] Dr. Brea Causey MONO # 0.7 103/ul Normal 0.3-0.8 [facility] Comment on above: Performed By: #### U CLINT, CMP, LIPID, DBIL, PHOS, MG #### [facility] [address] [place] [address] Dr. Brea Causey Monocytes/100 WBC (Bld) 10.0 % Normal 1.7-12.0 [facility] Comment on above: Performed By: #### U CLINT, CMP, LIPID, DBIL, PHOS, MG #### [facility] [address] [place] [address] Dr. Brea Causey NEUT # 4.6 103/ul Normal 1.4-6.5 [facility] Comment on above: Performed By: #### U CLINT, CMP, LIPID, DBIL, PHOS, MG #### [facility] [address] [place] [address] Dr. Brea Causey Neutrophils/100 WBC (Bld) 70.3 % Normal 43.0-75.0 [facility] Comment on above: Performed By: #### U CLINT, CMP, LIPID, DBIL, PHOS, MG #### [facility] [address] [address] [address] Brea Causey Platelet mean volume (Bld) [Entitic vol] 8.8 fL Critically low 9.5-13.5 [facility] Comment on above: Performed By: #### U CLINT, CMP, LIPID, DBIL, PHOS, MG #### [facility] [address] [address] [address] Brea Causey PLT 240 103/ul Normal 150-450 [facility] Comment on above: Performed By: #### U CLINT, CMP, LIPID, DBIL, PHOS, MG #### [facility] [address] [address] [address] Brea Causey RBC 4.30 106/ul Critically low 4.70-6.10 [facility] Comment on above: Performed By: #### U CLINT, CMP, LIPID, DBIL, PHOS, MG #### [facility] [address] [address] [address] Brea Causey WBC 6.5 103/ul Normal 4.0-11.0 [facility] Comment on above: Performed By: #### U CLINT, CMP, LIPID, DBIL, PHOS, MG #### [facility] [address] [address] [address] Brea Causey LIPID PROFILEon 07-04-2022 CHOL-HDL RATIO NORM SEE BELOW Normal [facility] Comment on above: Result Comment: 3.3 - 4.4 LOW RISK 4.4 - 7.1 AVERAGE RISK 7.1 - 11.0 MODERATE RISK >11.0 HIGH RISK Performed By: #### U CLINT, CMP, LIPID, DBIL, PHOS, MG #### [facility] [address] [address] [address] Brea Causey Cholesterol [Mass/Vol] 86 mg/dL Normal <=200 [facility] Comment on above: Performed By: #### U CLINT, CMP, LIPID, DBIL, PHOS, MG #### [facility] [address] [address] [address] Brea Causey Cholesterol in HDL [Mass/Vol] 44 mg/dL Normal 40-60 [facility] Comment on above: Performed By: #### U CLINT, CMP, LIPID, DBIL, PHOS, MG #### [facility] [address] [address] [address] Brea Causey Cholesterol in LDL [Mass/Vol] 28.0 mg/dL Normal [facility] Comment on above: Performed By: #### U CLINT, CMP, LIPID, DBIL, PHOS, MG #### [facility] [address] [address] [address] Brea Causey Cholesterol.total/Chol esterol in HDL [Mass ratio] 2.0 {ratio} Normal [facility] Comment on above: Performed By: #### U CLINT, CMP, LIPID, DBIL, PHOS, MG #### [facility] [address] [place] [address] Dr. Brea Causey HDL NORMAL > or = 60 mg/dl - LO W CARDIOVASCULAR RISK <40 mg/dl - HIGH CARDIOVASCULAR RISK Normal [facility] Comment on above: Performed By: #### U CLINT, CMP, LIPID, DBIL, PHOS, MG #### [facility] [address] [place] [address] Dr. Brea Causey LDL CALC NORMAL SEE BELOW Normal [facility] Comment on above: Result Comment: <100 mg/dl OPTIMAL 100 - 129 mg/dl NEAR OR ABOVE OPTIMAL 130 - 159 mg/dl BORDERLINE HIGH 160 - 189 mg/dl HIGH >190 mg/dl VERY HIGH Performed By: #### U CLINT, CMP, LIPID, DBIL, PHOS, MG #### [facility] [address] [address] [address] Brea Causey Triglyceride [Mass/Vol] 70 mg/dL Normal <=150 [facility] Comment on above: Performed By: #### U CLINT, CMP, LIPID, DBIL, PHOS, MG #### [facility] [address] [address] [address] Brea Causey VLDL CALC 14.0 mg/dL Normal [facility] Comment on above: Performed By: #### U CLINT, CMP, LIPID, DBIL, PHOS, MG #### [facility] [address] [place] [address] Dr. Brea Causey MAGNESIUMon 07-04-2022 Magnesium [Mass/Vol] 1.4 mg/dL Critically low 1.8-2.4 [facility] Comment on above: Performed By: #### U CLINT, CMP, LIPID, DBIL, PHOS, MG #### [facility] [address] [place] [address] Dr. Brea Causey PHOSPHORUSon 07-04-2022 Phosphate [Mass/Vol] 4.1 mg/dL Normal 2.6-4.7 [facility] Comment on above: Performed By: #### U CLINT, CMP, LIPID, DBIL, PHOS, MG #### [facility] [address] [place] [address] Dr. Brea aCusey PROF 14(COMP METB)on 023 Albumin [Mass/Vol] 4.0 g/dL Normal 3.4-5.0 [facility] Comment on above: Performed By: #### B KVIRUS #### [facility] [address] [place] [address] Dr. Brea Causey Albumin/Globulin [Mass ratio] 1.3 {ratio} Normal [facility] Comment on above: Performed By: #### B KVIRUS #### [facility] [address] [place] [address] Dr. Brea Causey ALP [Catalytic activity/Vol] 212 U/L Critically high 46-116 [facility] Comment on above: Performed By: #### B KVIRUS #### [facility] [address] [place] [address] Dr. Brea Causey ALT [Catalytic activity/Vol] 31 U/L Normal 16-63 [facility] Comment on above: Performed By: #### B KVIRUS #### [facility] [address] [place] [address] Dr. Brea Causey Anion gap [Moles/Vol] 11.9 mmol/L Normal [facility] Comment on above: Performed By: #### B KVIRUS #### [facility] [address] [place] [address] Dr. Brea Causey AST [Catalytic activity/Vol] 21 U/L Normal 15-37 [facility] Comment on above: Performed By: #### B KVIRUS #### [facility] [address] [place] [address] Dr. Brea Causey Bilirubin [Mass/Vol] 0.3 mg/dL Normal 0.2-1.0 [facility] Comment on above: Performed By: #### B KVIRUS #### [facility] [address] [place] [address] Dr. Brea Causey Calcium [Mass/Vol] 8.1 mg/dL Critically low 8.5-10.1 [facility] Comment on above: Performed By: #### B KVIRUS #### [facility] [address] [place] [address] Dr. Brea Causey Chloride [Moles/Vol] 97 mmol/L Critically low 98-107 [facility] Comment on above: Performed By: #### B KVIRUS #### [facility] [address] [place] [address] Dr. Brea Causey CO2 [Moles/Vol] 26.8 mmol/L Normal 21.0-32.0 [facility] Comment on above: Performed By: #### B KVIRUS #### [facility] [address] [place] [address] Dr. Brea Causey Creatinine [Mass/Vol] 0.99 mg/dL Normal 0.70-1.30 [facility] Comment on above: Performed By: #### B KVIRUS #### [facility] [address] [place] [address] Dr. Brea Causey EGFR-AF MONTENEGRIN >60 Normal >=[address] [facility] Comment on above: Performed By: #### B KVIRUS #### [facility] [address] [place] [address] Dr. Brea Causey EGFR-NON AF MONTENEGRIN >60 Normal >=60 [facility] Comment on above: Performed By: #### B KVIRUS #### [facility] [address] [place] [address] Dr. Brea Causey Globulin (S) [Mass/Vol] 3.2 g/dL Normal [facility] Comment on above: Performed By: #### B KVIRUS #### [facility] [address] [address] [address] Brea Causey Glucose [Mass/Vol] 169 mg/dL Critically high 74-106 [facility] Comment on above: Performed By: #### B KVIRUS #### [facility] [address] [address] [address] Brea Causey Potassium [Moles/Vol] 4.7 mmol/L Normal 3.5-5.1 [facility] Comment on above: Performed By: #### B KVIRUS #### [facility] [address] [address] [address] Brea Causey Protein [Mass/Vol] 7.2 g/dL Normal 6.4-8.2 [facility] Comment on above: Performed By: #### B KVIRUS #### [facility] [address] [address] [address] Brea Causey Sodium [Moles/Vol] 131 mmol/L Critically low 136-145 [facility] Comment on above: Performed By: #### B KVIRUS #### [facility] [address] [place] [address] Dr. Brea Causey Urea nitrogen [Mass/Vol] 9.0 mg/dL Normal 7.0-18.0 [facility] Comment on above: Performed By: #### B KVIRUS #### [facility] [address] [place] [address] Dr. Brea Causey Urea nitrogen/Creatinine [Mass ratio] 9.1 mg/mg Normal [facility] Comment on above: Performed By: #### B KVIRUS #### [facility] [address] [place] [address] Dr. Brea Causey URIC ACID SERUMon 07-04-2022 Urate [Mass/Vol] 6.1 mg/dL Normal 3.5-7.2 [facility] Comment on above: Performed By: #### U CLINT, CMP, LIPID, DBIL, PHOS, MG #### [facility] [address] [place] [address] Dr. Brea Causey TESTOSTERONE, FREE,DIRECT, T OTALon 05-28-2022 Free Testosterone(Direct) 5.9 pg/mL Critically low 6.6-18.[address] [facility] Comment on above: Result Comment: Perf ormed at: BN Performed By: #### U CLINT, CMP, LIPID, DBIL, PHOS, MG #### [facility] [address] [place] [address] Dr. Brea Causey Testosterone [Mass/Vol] 513 ng/dL Normal 264-916 [facility] Comment on above: Result Comment: Adul t male reference interval is based on a population of healthy nonobese males (BMI <30) between 19 and 39 years old. Steven, et.al. JCEM 2017,102;0166-6623. PMID: [id number]. Performed at: CB Performed By: #### U CLINT, CMP, LIPID, DBIL, PHOS, MG #### [facility] [address] [place] [address] Dr. Brea Causey FK506 (TACROLIMUS) WHOLE BLO ODon 05-26-2022 Tacrolimus (FK506), Blood 3.9 ng/mL Normal 2.0-20.0 [facility] Comment on above: Result Comment: Trou gh (immediately following transplant) 15.0 . Trough (steady state, 2 weeks or more after transplant): 3.0 - 8.0 . Performed by LC-MS/MS technology. Performed By: #### B KVIRUS #### [facility] [address] [place] [address] Dr. Brea Causey BK VIRUS PCR QUANTon 023 BKV DNA QUANT PCR PLASMA Negative Normal Negative [facility] Comment on above: Result Comment: No B K DNA detected. . The linear range of the assay is 22 - 100,000,000 IU/mL. Performed By: #### U CLINT, CMP, LIPID, DBIL, PHOS, MG #### [facility] [address] [place] [address] Dr. Brea Causey Log10 BKV DNA Plasma Normal [facility] Comment on above: Performed By: #### U CLINT, CMP, LIPID, DBIL, PHOS, MG #### [facility] [address] [place] [address] Dr. Brea Causey BILIRUBIN CONJUGATED (DIRECT )on 05-23-2022 BILI, CONJUGATED 0.2 mg/dL Normal 0.0-0.2 [facility] Comment on above: Performed By: #### C BC #### [facility] [address] [place] [address] Dr. Brea Causey CBC AUTO DIFFon 05-23-2022 BASO # 0.0 103/ul Normal 0.0-0.1 [facility] Comment on above: Performed By: #### B KVIRUS #### [facility] [address] [place] [address] Dr. Brea Causey Basophils/100 WBC (Bld) 0.6 % Normal 0.2-2.0 [facility] Comment on above: Performed By: #### B KVIRUS #### [facility] [address] [place] [address] Dr. Brea Causey EO # 0.1 103/ul Normal 0.0-0.7 [facility] Comment on above: Performed By: #### B KVIRUS #### [facility] [address] [place] [address] Dr. Brea Causey Eosinophils/100 WBC (Bld) 1.7 % Normal 0.9-7.0 [facility] Comment on above: Performed By: #### B KVIRUS #### [facility] [address] [place] [address] Dr. Brea Causey Erythrocyte distribution width (RBC) [Ratio] 13.4 % Normal 11.0-15.0 [facility] Comment on above: Performed By: #### B KVIRUS #### [facility] [address] [place] [address] Dr. Brea Causey Hematocrit (Bld) [Volume fraction] 38.8 % Critically low 42.0-54.0 [facility] Comment on above: Performed By: #### B KVIRUS #### [facility] [address] [place] [address] Dr. Brea Causey Hemoglobin (Bld) [Mass/Vol] 12.4 g/dL Critically low 14.0-18.0 [facility] Comment on above: Performed By: #### B KVIRUS #### [facility] [address] [place] [address] Dr. Brea Causey IG # 0.07 10e3/ul Critically high 0.00-0.03 [facility] Comment on above: Performed By: #### B KVIRUS #### [facility] [address] [place] [address] Dr. Brea Causey IG % 1.1 % Critically high 0.0-0.5 [facility] Comment on above: Performed By: #### B KVIRUS #### [facility] [address] [place] [address] Dr. Brea Causey LYMPH # 0.9 103/ul Critically low 1.2-3.8 [facility] Comment on above: Performed By: #### B KVIRUS #### [facility] [address] [place] [address] Dr. Brea Causey Lymphocytes/100 WBC (Bld) 14.1 % Critically low 20.5-60.0 [facility] Comment on above: Performed By: #### B KVIRUS #### [facility] [address] [place] [address] Dr. Brea Causey MANUAL DIFF REQ NO Normal [facility] Comment on above: Performed By: #### B KVIRUS #### [facility] [address] [place] [address] Dr. Brea Causey MCH (RBC) [Entitic mass] 29.3 pg Normal 25.9-34.0 [facility] Comment on above: Performed By: #### B KVIRUS #### [facility] [address] [place] [address] Dr. Brea Causey MCHC (RBC) [Mass/Vol] 32.0 g/dL Normal 29.9-35.2 [facility] Comment on above: Performed By: #### B KVIRUS #### [facility] [address] [place] [address] Dr. Brea Causey MCV (RBC) [Entitic vol] 91.7 fL Normal 80.0-94.0 [facility] Comment on above: Performed By: #### B KVIRUS #### [facility] [address] [place] [address] Dr. Brea Causey MONO # 0.7 103/ul Normal 0.3-0.8 [facility] Comment on above: Performed By: #### B KVIRUS #### [facility] [address] [place] [address] Dr. Brea Causey Monocytes/100 WBC (Bld) 10.0 % Normal 1.7-12.0 [facility] Comment on above: Performed By: #### B KVIRUS #### [facility] [address] [place] [address] Dr. Brea Causey NEUT # 4.7 103/ul Normal 1.4-6.5 [facility] Comment on above: Performed By: #### B KVIRUS #### [facility] [address] [place] [address] Dr. Brea Causey Neutrophils/100 WBC (Bld) 72.5 % Normal 43.0-75.0 [facility] Comment on above: Performed By: #### B KVIRUS #### [facility] [address] [place] [address] Dr. Brea Causey Platelet mean volume (Bld) [Entitic vol] 9.4 fL Critically low 9.5-13.5 [facility] Comment on above: Performed By: #### B KVIRUS #### [facility] [address] [place] [address] Dr. Brea Causey PLT 256 103/ul Normal 150-450 [facility] Comment on above: Performed By: #### B KVIRUS #### [facility] [address] [place] [address] Dr. Brea Causey RBC 4.23 106/ul Critically low 4.70-6.10 [facility] Comment on above: Performed By: #### B KVIRUS #### [facility] [address] [place] [address] Dr. Brea Causey WBC 6.5 103/ul Normal 4.0-11.0 [facility] Comment on above: Performed By: #### B KVIRUS #### [facility] [address] [address] [address] Brea Causey GLYCOHEMOGLOBIN A1Con 2022 ADA RECOMMENDATION SEE BELOW Normal [facility] Comment on above: Result Comment: ADA RECOMMENDED LIMIT 4.0 - 6.0 ADA THERAPEUTIC TARGET < 7.0 ACTION SUGGESTED > 7.0 Performed By: #### U CLINT, CMP, LIPID, DBIL, PHOS, MG #### [facility] [address] [address] [address] Brea Causey Glucose [Mass/Vol] 160 mg/dL Normal [facility] Comment on above: Performed By: #### U CLINT, CMP, LIPID, DBIL, PHOS, MG #### [facility] [address] [address] [address] Brea Causey HbA1c (Bld) [Mass fraction] 7.2 % Critically high 4.5-6.2 [facility] Comment on above: Performed By: #### U CLINT, CMP, LIPID, DBIL, PHOS, MG #### [facility] [address] [address] [address] Brea Causey LIPID PROFILEon 05-23-2022 CHOL-HDL RATIO NORM SEE BELOW Normal [facility] Comment on above: Result Comment: 3.3 - 4.4 LOW RISK 4.4 - 7.1 AVERAGE RISK 7.1 - 11.0 MODERATE RISK >11.0 HIGH RISK Performed By: #### C BC #### [facility] [address] [address] [address] Brea Causey Cholesterol [Mass/Vol] 87 mg/dL Normal <=200 [facility] Comment on above: Performed By: #### C BC #### [facility] [address] [place] [address] Dr. Brea Causey Cholesterol in HDL [Mass/Vol] 54 mg/dL Normal 40-60 [facility] Comment on above: Performed By: #### C BC #### [facility] [address] [address] [address] Brea Causey Cholesterol in LDL [Mass/Vol] 24.6 mg/dL Normal [facility] Comment on above: Performed By: #### C BC #### [facility] [address] [address] [address] Brea Causey Cholesterol.total/Chol esterol in HDL [Mass ratio] 1.6 {ratio} Normal [facility] Comment on above: Performed By: #### C BC #### [facility] [address] [address] [address] Brea Causey HDL NORMAL > or = 60 mg/dl - LO W CARDIOVASCULAR RISK <40 mg/dl - HIGH CARDIOVASCULAR RISK Normal [facility] Comment on above: Performed By: #### C BC #### [facility] [address] [place] [address] Dr. Brea Causey LDL CALC NORMAL SEE BELOW Normal [facility] Comment on above: Result Comment: <100 mg/dl OPTIMAL 100 - 129 mg/dl NEAR OR ABOVE OPTIMAL 130 - 159 mg/dl BORDERLINE HIGH 160 - 189 mg/dl HIGH >190 mg/dl VERY HIGH Performed By: #### C BC #### [facility] [address] [place] [address] Dr. Brea Causey Triglyceride [Mass/Vol] 42 mg/dL Normal <=150 [facility] Comment on above: Performed By: #### C BC #### [facility] [address] [place] [address] Dr. Brea Causey VLDL CALC 8.4 mg/dL Normal [facility] Comment on above: Performed By: #### C BC #### [facility] [address] [place] [address] Dr. Brea Causey MAGNESIUMon 05-23-2022 Magnesium [Mass/Vol] 1.4 mg/dL Critically low 1.8-2.4 [facility] Comment on above: Performed By: #### C BC #### [facility] [address] [place] [address] Dr. Brea Causey PHOSPHORUSon 05-23-2022 Phosphate [Mass/Vol] 3.6 mg/dL Normal 2.6-4.7 [facility] Comment on above: Performed By: #### C BC #### [facility] [address] [address] [address] Brea Causey PROF 14(COMP METB)on 023 Albumin [Mass/Vol] 3.9 g/dL Normal 3.4-5.0 [facility] Comment on above: Performed By: #### C BC #### [facility] [address] [place] [address] Dr. Brea Causey Albumin/Globulin [Mass ratio] 1.2 {ratio} Normal [facility] Comment on above: Performed By: #### C BC #### [facility] [address] [place] [address] Dr. Brea Causey ALP [Catalytic activity/Vol] 190 U/L Critically high 46-116 [facility] Comment on above: Performed By: #### C BC #### [facility] [address] [place] [address] Dr. Brea Causey ALT [Catalytic activity/Vol] 26 U/L Normal 16-63 [facility] Comment on above: Performed By: #### C BC #### [facility] [address] [place] [address] Dr. Brea Causey Anion gap [Moles/Vol] 13.1 mmol/L Normal [facility] Comment on above: Performed By: #### C BC #### [facility] [address] [place] [address] Dr. Brea Causey AST [Catalytic activity/Vol] 18 U/L Normal 15-37 [facility] Comment on above: Performed By: #### C BC #### [facility] [address] [place] [address] Dr. Brea Causey Bilirubin [Mass/Vol] 0.4 mg/dL Normal 0.2-1.0 [facility] Comment on above: Performed By: #### C BC #### [facility] [address] [place] [address] Dr. Brea Causey Calcium [Mass/Vol] 7.8 mg/dL Critically low 8.5-10.1 [facility] Comment on above: Performed By: #### C BC #### [facility] [address] [address] [address] Brea Causey Chloride [Moles/Vol] 95 mmol/L Critically low 98-107 [facility] Comment on above: Performed By: #### C BC #### [facility] [address] [address] [address] Brea Causey CO2 [Moles/Vol] 28.8 mmol/L Normal 21.0-32.0 [facility] Comment on above: Performed By: #### C BC #### [facility] [address] [address] [address] Brea Causey Creatinine [Mass/Vol] 1.03 mg/dL Normal 0.70-1.30 [facility] Comment on above: Performed By: #### C BC #### [facility] [address] [place] [address] Dr. Brea Causey EGFR-AF MONTENEGRIN >60 Normal >=[address] [facility] Comment on above: Performed By: #### C BC #### [facility] [address] [place] [address] Dr. Brea Causey EGFR-NON AF MONTENEGRIN >60 Normal >=60 [facility] Comment on above: Performed By: #### C BC #### [facility] [address] [place] [address] Dr. Brea Causey Globulin (S) [Mass/Vol] 3.2 g/dL Normal [facility] Comment on above: Performed By: #### C BC #### [facility] [address] [place] [address] Dr. Brea Causey Glucose [Mass/Vol] 155 mg/dL Critically high 74-106 [facility] Comment on above: Performed By: #### C BC #### [facility] [address] [place] [address] Dr. Brea Causey Potassium [Moles/Vol] 4.9 mmol/L Normal 3.5-5.1 [facility] Comment on above: Performed By: #### C BC #### [facility] [address] [place] [address] Dr. Brea Causey Protein [Mass/Vol] 7.1 g/dL Normal 6.4-8.2 [facility] Comment on above: Performed By: #### C BC #### [facility] [address] [address] [address] Brea Causey Sodium [Moles/Vol] 132 mmol/L Critically low 136-145 [facility] Comment on above: Performed By: #### C BC #### [facility] [address] [address] [address] Brea Causey Urea nitrogen [Mass/Vol] 8.0 mg/dL Normal 7.0-18.0 [facility] Comment on above: Performed By: #### C BC #### [facility] [address] [address] [address] Brea Causey Urea nitrogen/Creatinine [Mass ratio] 7.8 mg/mg Normal [facility] Comment on above: Performed By: #### C BC #### [facility] [address] [address] [address] Brea Causey URIC ACID SERUMon 05-23-2022 Urate [Mass/Vol] 5.6 mg/dL Normal 3.5-7.2 [facility] Comment on above: Performed By: #### C BC #### [facility] [address] [place] [address] Dr. Brea Cause[facility] Free Testosterone(Direct) 7.4 pg/mL Normal 6.6-18.[address] [facility] Comment on above: Result Comment: Perf ormed at: BN Performed By: #### U CLINT, CMP, LIPID, DBIL, PHOS, MG #### [facility] [address] [id number] Brea Causey Testosterone [Mass/Vol] 494 ng/dL Normal 264-916 [facility] Comment on above: Result Comment: Adul t male reference interval is based on a population of healthy nonobese males (BMI <30) between 19 and 39 years old. Steven et.al. JCEM 2017,102;3703-2825. PMID: [id number]. Performed at: CB Performed By: #### U CLINT, CMP, LIPID, DBIL, PHOS, MG #### [facility] [address] [place] [address] Dr. Brea Causey FK506 (TACROLIMUS) WHOLE BLO ODon 05-02-2022 Tacrolimus (FK506), Blood 4.3 ng/mL Normal 2.0-20.0 [facility] Comment on above: Result Comment: Trou gh (immediately following transplant) 15.0 . Trough (steady state, 2 weeks or more after transplant): 3.0 - 8.0 . Performed by LC-MS/MS technology. Performed By: #### C BC #### [facility] [address] [place] [address] Dr. Brea Causey BILIRUBIN CONJUGATED (DIRECT )on 04-30-2022 BILI, CONJUGATED 0.1 mg/dL Normal 0.0-0.2 [facility] Comment on above: Performed By: #### U CLINT, CMP, LIPID, DBIL, PHOS, MG #### [facility] [address] [place] [address] Dr. Brea Causey CBC AUTO DIFFon 04-30-2022 BASO # 0.0 103/ul Normal 0.0-0.1 [facility] Comment on above: Performed By: #### U CLINT, CMP, LIPID, DBIL, PHOS, MG #### [facility] [address] [place] [address] Dr. Brea Causey Basophils/100 WBC (Bld) 0.5 % Normal 0.2-2.0 [facility] Comment on above: Performed By: #### U CLINT, CMP, LIPID, DBIL, PHOS, MG #### [facility] [address] [place] [address] Dr. Brea Causey EO # 0.1 103/ul Normal 0.0-0.7 [facility] Comment on above: Performed By: #### U CLINT, CMP, LIPID, DBIL, PHOS, MG #### [facility] [address] [place] [address] Dr. Brea Causey Eosinophils/100 WBC (Bld) 2.1 % Normal 0.9-7.0 [facility] Comment on above: Performed By: #### U CLINT, CMP, LIPID, DBIL, PHOS, MG #### [facility] [address] [place] [address] Dr. Brea Causey Erythrocyte distribution width (RBC) [Ratio] 13.2 % Normal 11.0-15.0 [facility] Comment on above: Performed By: #### U CLINT, CMP, LIPID, DBIL, PHOS, MG #### [facility] [address] [place] [address] Dr. Brea Causey Hematocrit (Bld) [Volume fraction] 37.0 % Critically low 42.0-54.0 [facility] Comment on above: Performed By: #### U CLINT, CMP, LIPID, DBIL, PHOS, MG #### [facility] [address] [place] [address] Dr. Brea Causey Hemoglobin (Bld) [Mass/Vol] 12.4 g/dL Critically low 14.0-18.0 [facility] Comment on above: Performed By: #### U CLINT, CMP, LIPID, DBIL, PHOS, MG #### [facility] [address] [place] [address] Dr. Brea Causey IG # 0.05 10e3/ul Critically high 0.00-0.03 [facility] Comment on above: Performed By: #### U CLINT, CMP, LIPID, DBIL, PHOS, MG #### [facility] [address] [place] [address] Dr. Brea Causey IG % 0.9 % Critically high 0.0-0.5 [facility] Comment on above: Performed By: #### U CLINT, CMP, LIPID, DBIL, PHOS, MG #### [facility] [address] [place] [address] Dr. Brea Causey LYMPH # 1.0 103/ul Critically low 1.2-3.8 [facility] Comment on above: Performed By: #### U CLINT, CMP, LIPID, DBIL, PHOS, MG #### [facility] [address] [place] [address] Dr. Brea Causey Lymphocytes/100 WBC (Bld) 16.4 % Critically low 20.5-60.0 [facility] Comment on above: Performed By: #### U CLINT, CMP, LIPID, DBIL, PHOS, MG #### [facility] [address] [place] [address] Dr. Brea Causey MANUAL DIFF REQ NO Normal [facility] Comment on above: Performed By: #### U CLINT, CMP, LIPID, DBIL, PHOS, MG #### [facility] [address] [place] [address] Dr. Brea Causey MCH (RBC) [Entitic mass] 29.0 pg Normal 25.9-34.0 [facility] Comment on above: Performed By: #### U CLINT, CMP, LIPID, DBIL, PHOS, MG #### [facility] [address] [place] [address] Dr. Brea Causey MCHC (RBC) [Mass/Vol] 33.5 g/dL Normal 29.9-35.2 [facility] Comment on above: Performed By: #### U CLINT, CMP, LIPID, DBIL, PHOS, MG #### [facility] [address] [place] [address] Dr. Brea Causey MCV (RBC) [Entitic vol] 86.7 fL Normal 80.0-94.0 [facility] Comment on above: Performed By: #### U CLINT, CMP, LIPID, DBIL, PHOS, MG #### [facility] [address] [place] [address] Dr. Brea Causey MONO # 0.7 103/ul Normal 0.3-0.8 [facility] Comment on above: Performed By: #### U CLINT, CMP, LIPID, DBIL, PHOS, MG #### [facility] [address] [place] [address] Dr. Brea Causey Monocytes/100 WBC (Bld) 11.6 % Normal 1.7-12.0 [facility] Comment on above: Performed By: #### U CLINT, CMP, LIPID, DBIL, PHOS, MG #### [facility] [address] [address] [address] Brea Causey NEUT # 4.0 103/ul Normal 1.4-6.5 [facility] Comment on above: Performed By: #### U CLINT, CMP, LIPID, DBIL, PHOS, MG #### [facility] [address] [address] [address] Brea Causey Neutrophils/100 WBC (Bld) 68.5 % Normal 43.0-75.0 [facility] Comment on above: Performed By: #### U CLINT, CMP, LIPID, DBIL, PHOS, MG #### [facility] [address] [address] [address] Brea Causey Platelet mean volume (Bld) [Entitic vol] 9.2 fL Critically low 9.5-13.5 [facility] Comment on above: Performed By: #### U CLINT, CMP, LIPID, DBIL, PHOS, MG #### [facility] [address] [address] [address] Brea Causey PLT 231 103/ul Normal 150-450 [facility] Comment on above: Performed By: #### U CLINT, CMP, LIPID, DBIL, PHOS, MG #### [facility] [address] [address] [address] Brea Causey RBC 4.27 106/ul Critically low 4.70-6.10 [facility] Comment on above: Performed By: #### U CLINT, CMP, LIPID, DBIL, PHOS, MG #### [facility] [address] [address] [address] Brea Causey WBC 5.9 103/ul Normal 4.0-11.0 [facility] Comment on above: Performed By: #### U CLINT, CMP, LIPID, DBIL, PHOS, MG #### [facility] [address] [address] [address] Brea Causey LIPID PROFILEon 04-30-2022 CHOL-HDL RATIO NORM SEE BELOW Normal [facility] Comment on above: Result Comment: 3.3 - 4.4 LOW RISK 4.4 - 7.1 AVERAGE RISK 7.1 - 11.0 MODERATE RISK >11.0 HIGH RISK Performed By: #### U CLINT, CMP, LIPID, DBIL, PHOS, MG #### [facility] [address] [address] [address] Brea Causey Cholesterol [Mass/Vol] 78 mg/dL Normal <=200 [facility] Comment on above: Performed By: #### U CLINT, CMP, LIPID, DBIL, PHOS, MG #### [facility] [address] [address] [address] Brea Causey Cholesterol in HDL [Mass/Vol] 41 mg/dL Normal 40-60 [facility] Comment on above: Performed By: #### U CLINT, CMP, LIPID, DBIL, PHOS, MG #### [facility] [address] [place] [address] Dr. Brea Causey Cholesterol in LDL [Mass/Vol] 17.8 mg/dL Normal [facility] Comment on above: Performed By: #### U CLINT, CMP, LIPID, DBIL, PHOS, MG #### [facility] [address] [place] [address] Dr. Brea Causey Cholesterol.total/Chol esterol in HDL [Mass ratio] 1.9 {ratio} Normal [facility] Comment on above: Performed By: #### U CLINT, CMP, LIPID, DBIL, PHOS, MG #### [facility] [address] [place] [address] Dr. Brea Causey HDL NORMAL > or = 60 mg/dl - LO W CARDIOVASCULAR RISK <40 mg/dl - HIGH CARDIOVASCULAR RISK Normal [facility] Comment on above: Performed By: #### U CLINT, CMP, LIPID, DBIL, PHOS, MG #### [facility] [address] [place] [address] Dr. Brea Causey LDL CALC NORMAL SEE BELOW Normal [facility] Comment on above: Result Comment: <100 mg/dl OPTIMAL 100 - 129 mg/dl NEAR OR ABOVE OPTIMAL 130 - 159 mg/dl BORDERLINE HIGH 160 - 189 mg/dl HIGH >190 mg/dl VERY HIGH Performed By: #### U CLINT, CMP, LIPID, DBIL, PHOS, MG #### [facility] [address] [address] [address] Brea Causey Triglyceride [Mass/Vol] 96 mg/dL Normal <=150 [facility] Comment on above: Performed By: #### U CLINT, CMP, LIPID, DBIL, PHOS, MG #### [facility] [address] [address] [address] Brea Causey VLDL CALC 19.2 mg/dL Normal [facility] Comment on above: Performed By: #### U CLINT, CMP, LIPID, DBIL, PHOS, MG #### [facility] [address] [place] [address] Dr. Brea Causey MAGNESIUMon 04-30-2022 Magnesium [Mass/Vol] 1.7 mg/dL Critically low 1.8-2.4 [facility] Comment on above: Performed By: #### U CLINT, CMP, LIPID, DBIL, PHOS, MG #### [facility] [address] [place] [address] Dr. Brea Causey PHOSPHORUSon 04-30-2022 Phosphate [Mass/Vol] 3.6 mg/dL Normal 2.6-4.7 [facility] Comment on above: Performed By: #### U CLINT, CMP, LIPID, DBIL, PHOS, MG #### [facility] [address] [place] [address] Dr. Brea Causey PROF 14(COMP METB)on 022 Albumin [Mass/Vol] 4.0 g/dL Normal 3.4-5.0 [facility] Comment on above: Performed By: #### U CLINT, CMP, LIPID, DBIL, PHOS, MG #### [facility] [address] [place] [address] Dr. Brea Causey Albumin/Globulin [Mass ratio] 1.3 {ratio} Normal [facility] Comment on above: Performed By: #### U CLINT, CMP, LIPID, DBIL, PHOS, MG #### [facility] [address] [place] [address] Dr. Brea Causey ALP [Catalytic activity/Vol] 196 U/L Critically high 46-116 [facility] Comment on above: Performed By: #### U CLINT, CMP, LIPID, DBIL, PHOS, MG #### [facility] [address] [address] [address] Brea Causey ALT [Catalytic activity/Vol] 21 U/L Normal 16-63 [facility] Comment on above: Performed By: #### U CLINT, CMP, LIPID, DBIL, PHOS, MG #### [facility] [address] [place] [address] Dr. Brea Causey Anion gap [Moles/Vol] 10.5 mmol/L Normal Th e [facility] Comment on above: Performed By: #### U CLINT, CMP, LIPID, DBIL, PHOS, MG #### [facility] [address] [place] [address] Dr. Brea Causey AST [Catalytic activity/Vol] 16 U/L Normal 15-37 [facility] Comment on above: Performed By: #### U CLINT, CMP, LIPID, DBIL, PHOS, MG #### [facility] [address] [place] [address] Dr. Brea Causey Bilirubin [Mass/Vol] 0.3 mg/dL Normal 0.2-1.0 [facility] Comment on above: Performed By: #### U CLINT, CMP, LIPID, DBIL, PHOS, MG #### [facility] [address] [address] [address] Brea Causey Calcium [Mass/Vol] 8.6 mg/dL Normal 8.5-10.1 [facility] Comment on above: Performed By: #### U CLINT, CMP, LIPID, DBIL, PHOS, MG #### [facility] [address] [address] [address] Brea Causey Chloride [Moles/Vol] 95 mmol/L Critically low 98-107 [facility] Comment on above: Performed By: #### U CLINT, CMP, LIPID, DBIL, PHOS, MG #### [facility] [address] [place] [address] Dr. Brea Causey CO2 [Moles/Vol] 30.9 mmol/L Normal 21.0-32.0 [facility] Comment on above: Performed By: #### U CLINT, CMP, LIPID, DBIL, PHOS, MG #### [facility] [address] [place] [address] Dr. Brea Causey Creatinine [Mass/Vol] 1.00 mg/dL Normal 0.70-1.30 [facility] Comment on above: Performed By: #### U CLINT, CMP, LIPID, DBIL, PHOS, MG #### [facility] [address] [address] [address] Brea Causey EGFR-AF MONTENEGRIN >60 Normal >=60 [facility] Comment on above: Performed By: #### U CLINT, CMP, LIPID, DBIL, PHOS, MG #### [facility] [address] [place] [address] Dr. Brea Causey EGFR-NON AF MONTENEGRIN >60 Normal >=60 [facility] Comment on above: Performed By: #### U CLINT, CMP, LIPID, DBIL, PHOS, MG #### [facility] [address] [place] [address] Dr. Brea Causey Globulin (S) [Mass/Vol] 3.2 g/dL Normal [facility] Comment on above: Performed By: #### U CLINT, CMP, LIPID, DBIL, PHOS, MG #### [facility] [address] [address] [address] Brea Casuey Glucose [Mass/Vol] 160 mg/dL Critically high 74-106 [facility] Comment on above: Performed By: #### U CLINT, CMP, LIPID, DBIL, PHOS, MG #### [facility] [address] [address] [address] Brea Causey Potassium [Moles/Vol] 5.4 mmol/L Critically high 3.5-5.1 [facility] Comment on above: Performed By: #### U CLINT, CMP, LIPID, DBIL, PHOS, MG #### [facility] [address] [place] [address] Dr. Brea Causey Protein [Mass/Vol] 7.2 g/dL Normal 6.4-8.2 [facility] Comment on above: Performed By: #### U CLINT, CMP, LIPID, DBIL, PHOS, MG #### [facility] [address] [address] [address] Brea Causey Sodium [Moles/Vol] 131 mmol/L Critically low 136-145 [facility] Comment on above: Performed By: #### U CLINT, CMP, LIPID, DBIL, PHOS, MG #### [facility] [address] [address] [address] Brea Causey Urea nitrogen [Mass/Vol] 11.0 mg/dL Normal 7.0-18.0 [facility] Comment on above: Performed By: #### U CLINT, CMP, LIPID, DBIL, PHOS, MG #### [facility] [address] [place] [address] Dr. Brea Causey Urea nitrogen/Creatinine [Mass ratio] 11.0 mg/mg Normal [facility] Comment on above: Performed By: #### U CLINT, CMP, LIPID, DBIL, PHOS, MG #### [facility] [address] [address] [address] Brea Causey URIC ACID SERUMon 04-30-2022 Urate [Mass/Vol] 5.9 mg/dL Normal 3.5-7.2 [facility] Comment on above: Performed By: #### U CLINT, CMP, LIPID, DBIL, PHOS, MG #### [facility] [address] [place] [address] Dr. Brea Causey FK506 (TACROLIMUS) WHOLE BLO ODon 04-06-2022 Tacrolimus (FK506), Blood 3.0 ng/mL Normal 2.0-20.0 [facility] Comment on above: Result Comment: Trou gh (immediately following transplant) 15.0 . Trough (steady state, 2 weeks or more after transplant): 3.0 - 8.0 . Performed by LC-MS/MS technology. Performed By: #### U CLINT, CMP, LIPID, DBIL, PHOS, MG #### [facility] [address] [address] [address] Brea Causey BILIRUBIN CONJUGATED (DIRECT )on 04-03-2022 BILI, CONJUGATED 0.1 mg/dL Normal 0.0-0.[address] [facility] Comment on above: Performed By: #### U CLINT, CMP, LIPID, DBIL, PHOS, MG #### [facility] [address] [place] [address] Dr. Brea Causey CBC AUTO DIFFon 04-03-2022 BASO # 0.0 103/ul Normal 0.0-0.1 [facility] Comment on above: Performed By: #### U CLINT, CMP, LIPID, DBIL, PHOS, MG #### [facility] [address] [place] [address] Dr. Brea Causey Basophils/100 WBC (Bld) 0.5 % Normal 0.2-2.0 [facility] Comment on above: Performed By: #### U CLINT, CMP, LIPID, DBIL, PHOS, MG #### [facility] [address] [place] [address] Dr. Brea Causey EO # 0.1 103/ul Normal 0.0-0.7 [facility] Comment on above: Performed By: #### U CLINT, CMP, LIPID, DBIL, PHOS, MG #### [facility] [address] [place] [address] Dr. Brea Causey Eosinophils/100 WBC (Bld) 2.5 % Normal 0.9-7.0 [facility] Comment on above: Performed By: #### U CLINT, CMP, LIPID, DBIL, PHOS, MG #### [facility] [address] [place] [address] Dr. Brea Causey Erythrocyte distribution width (RBC) [Ratio] 13.3 % Normal 11.0-15.0 [facility] Comment on above: Performed By: #### U CLINT, CMP, LIPID, DBIL, PHOS, MG #### [facility] [address] [place] [address] Dr. Brea Causey Hematocrit (Bld) [Volume fraction] 36.4 % Critically low 42.0-54.0 [facility] Comment on above: Performed By: #### U CLINT, CMP, LIPID, DBIL, PHOS, MG #### [facility] [address] [address] [address] Brea Causey Hemoglobin (Bld) [Mass/Vol] 12.3 g/dL Critically low 14.0-18.0 [facility] Comment on above: Performed By: #### U CLINT, CMP, LIPID, DBIL, PHOS, MG #### [facility] [address] [address] [address] Brea Causey IG # 0.03 10e3/ul Normal 0.00-0.03 [facility] Comment on above: Performed By: #### U CLINT, CMP, LIPID, DBIL, PHOS, MG #### [facility] [address] [place] [address] Dr. Brea Causey IG % 0.5 % Normal 0.0-0.5 [facility] Comment on above: Performed By: #### U CLINT, CMP, LIPID, DBIL, PHOS, MG #### [facility] [address] [address] [address] Brea Causey LYMPH # 0.9 103/ul Critically low 1.2-3.8 [facility] Comment on above: Performed By: #### U CLINT, CMP, LIPID, DBIL, PHOS, MG #### [facility] [address] [place] [address] Dr. Brea Causey Lymphocytes/100 WBC (Bld) 16.9 % Critically low 20.5-60.0 [facility] Comment on above: Performed By: #### U CLINT, CMP, LIPID, DBIL, PHOS, MG #### [facility] [address] [address] [address] Brea Causey MANUAL DIFF REQ NO Normal [facility] Comment on above: Performed By: #### U CLINT, CMP, LIPID, DBIL, PHOS, MG #### [facility] [address] [address] [address] Brea Causey MCH (RBC) [Entitic mass] 29.3 pg Normal 25.9-34.0 [facility] Comment on above: Performed By: #### U CLINT, CMP, LIPID, DBIL, PHOS, MG #### [facility] [address] [place] [address] Dr. Brea Causey MCHC (RBC) [Mass/Vol] 33.8 g/dL Normal 29.9-35.2 [facility] Comment on above: Performed By: #### U CLINT, CMP, LIPID, DBIL, PHOS, MG #### [facility] [address] [place] [address] Dr. Brea Causey MCV (RBC) [Entitic vol] 86.7 fL Normal 80.0-94.0 [facility] Comment on above: Performed By: #### U CLINT, CMP, LIPID, DBIL, PHOS, MG #### [facility] [address] [place] [address] Dr. Brea Causey MONO # 0.6 103/ul Normal 0.3-0.8 [facility] Comment on above: Performed By: #### U CLINT, CMP, LIPID, DBIL, PHOS, MG #### [facility] [address] [place] [address] Dr. Brea Causey Monocytes/100 WBC (Bld) 10.1 % Normal 1.7-12.0 [facility] Comment on above: Performed By: #### U CLINT, CMP, LIPID, DBIL, PHOS, MG #### [facility] [address] [place] [address] Dr. Brea Causey NEUT # 3.9 103/ul Normal 1.4-6.5 [facility] Comment on above: Performed By: #### U CLINT, CMP, LIPID, DBIL, PHOS, MG #### [facility] [address] [place] [address] Dr. Brea Causey Neutrophils/100 WBC (Bld) 69.5 % Normal 43.0-75.0 [facility] Comment on above: Performed By: #### U CLINT, CMP, LIPID, DBIL, PHOS, MG #### [facility] [address] [place] [address] Dr. Brea Causey Platelet mean volume (Bld) [Entitic vol] 9.2 fL Critically low 9.5-13.5 [facility] Comment on above: Performed By: #### U CLINT, CMP, LIPID, DBIL, PHOS, MG #### [facility] [address] [address] [address] Brea Causey PLT 228 103/ul Normal 150-450 [facility] Comment on above: Performed By: #### U CLINT, CMP, LIPID, DBIL, PHOS, MG #### [facility] [address] [address] [address] Brea Causey RBC 4.20 106/ul Critically low 4.70-6.10 [facility] Comment on above: Performed By: #### U CLINT, CMP, LIPID, DBIL, PHOS, MG #### [facility] [address] [address] [address] Brea Causey WBC 5.6 103/ul Normal 4.0-11.0 [facility] Comment on above: Performed By: #### U CLINT, CMP, LIPID, DBIL, PHOS, MG #### [facility] [address] [address] [address] Brea Causey LIPID PROFILEon 04-03-2022 CHOL-HDL RATIO NORM SEE BELOW Normal [facility] Comment on above: Result Comment: 3.3 - 4.4 LOW RISK 4.4 - 7.1 AVERAGE RISK 7.1 - 11.0 MODERATE RISK >11.0 HIGH RISK Performed By: #### U CLINT, CMP, LIPID, DBIL, PHOS, MG #### [facility] [address] [address] [address] Brea Causey Cholesterol [Mass/Vol] 84 mg/dL Normal <=200 [facility] Comment on above: Performed By: #### U CLINT, CMP, LIPID, DBIL, PHOS, MG #### [facility] [address] [address] [address] Brea aCusey Cholesterol in HDL [Mass/Vol] 45 mg/dL Normal 40-60 [facility] Comment on above: Performed By: #### U CLINT, CMP, LIPID, DBIL, PHOS, MG #### [facility] [address] [address] [address] Brea Causey Cholesterol in LDL [Mass/Vol] 22.8 mg/dL Normal [facility] Comment on above: Performed By: #### U CLINT, CMP, LIPID, DBIL, PHOS, MG #### [facility] [address] [address] [address] Brea Causey Cholesterol.total/Chol esterol in HDL [Mass ratio] 1.9 {ratio} Normal [facility] Comment on above: Performed By: #### U CLINT, CMP, LIPID, DBIL, PHOS, MG #### [facility] [address] [address] [address] Brea Causey HDL NORMAL > or = 60 mg/dl - LO W CARDIOVASCULAR RISK <40 mg/dl - HIGH CARDIOVASCULAR RISK Normal [facility] Comment on above: Performed By: #### U CLINT, CMP, LIPID, DBIL, PHOS, MG #### [facility] [address] [address] [address] Brea Causey LDL CALC NORMAL SEE BELOW Normal [facility] Comment on above: Result Comment: <100 mg/dl OPTIMAL 100 - 129 mg/dl NEAR OR ABOVE OPTIMAL 130 - 159 mg/dl BORDERLINE HIGH 160 - 189 mg/dl HIGH >190 mg/dl VERY HIGH Performed By: #### U CLINT, CMP, LIPID, DBIL, PHOS, MG #### [facility] [address] [address] [address] Brea Causey Triglyceride [Mass/Vol] 81 mg/dL Normal <=150 [facility] Comment on above: Performed By: #### U CLINT, CMP, LIPID, DBIL, PHOS, MG #### [facility] [address] [address] [address] Brea Causey VLDL CALC 16.2 mg/dL Normal [facility] Comment on above: Performed By: #### U CLINT, CMP, LIPID, DBIL, PHOS, MG #### [facility] [address] [address] [address] Brea Causey MAGNESIUMon 04-03-2022 Magnesium [Mass/Vol] 1.6 mg/dL Critically low 1.8-2.4 [facility] Comment on above: Performed By: #### U CLINT, CMP, LIPID, DBIL, PHOS, MG #### [facility] [address] [address] [address] Brea Causey PHOSPHORUSon 04-03-2022 Phosphate [Mass/Vol] 3.9 mg/dL Normal 2.6-4.7 [facility] Comment on above: Performed By: #### U CLINT, CMP, LIPID, DBIL, PHOS, MG #### [facility] [address] [address] [address] Brea Causey PROF 14(COMP METB)on 022 Albumin [Mass/Vol] 4.0 g/dL Normal 3.4-5.0 [facility] Comment on above: Performed By: #### U CLINT, CMP, LIPID, DBIL, PHOS, MG #### [facility] [address] [place] [address] Dr. Brea Causey Albumin/Globulin [Mass ratio] 1.2 {ratio} Normal [facility] Comment on above: Performed By: #### U CLINT, CMP, LIPID, DBIL, PHOS, MG #### [facility] [address] [place] [address] Dr. Brea Causey ALP [Catalytic activity/Vol] 196 U/L Critically high 46-116 [facility] Comment on above: Performed By: #### U CLINT, CMP, LIPID, DBIL, PHOS, MG #### [facility] [address] [address] [address] Brea Causey ALT [Catalytic activity/Vol] 19 U/L Normal 16-63 [facility] Comment on above: Performed By: #### U CLINT, CMP, LIPID, DBIL, PHOS, MG #### [facility] [address] [address] [address] Brea Causey Anion gap [Moles/Vol] 10.2 mmol/L Normal [facility] Comment on above: Performed By: #### U CLINT, CMP, LIPID, DBIL, PHOS, MG #### [facility] [address] [address] [address] Brea Causey AST [Catalytic activity/Vol] 15 U/L Normal 15-37 [facility] Comment on above: Performed By: #### U CLINT, CMP, LIPID, DBIL, PHOS, MG #### [facility] [address] [address] [address] Brea Causey Bilirubin [Mass/Vol] 0.3 mg/dL Normal 0.2-1.0 [facility] Comment on above: Performed By: #### U CLINT, CMP, LIPID, DBIL, PHOS, MG #### [facility] [address] [place] [address] Dr. Brea Causey Calcium [Mass/Vol] 8.2 mg/dL Critically low 8.5-10.1 Th e [facility] Comment on above: Performed By: #### U CLINT, CMP, LIPID, DBIL, PHOS, MG #### [facility] [address] [place] [address] Dr. Brea Causey Chloride [Moles/Vol] 97 mmol/L Critically low 98-107 [facility] Comment on above: Performed By: #### U CLINT, CMP, LIPID, DBIL, PHOS, MG #### [facility] [address] [place] [address] Dr. Brea Causey CO2 [Moles/Vol] 28.2 mmol/L Normal 21.0-32.0 [facility] Comment on above: Performed By: #### U CLINT, CMP, LIPID, DBIL, PHOS, MG #### [facility] [address] [place] [address] Dr. Brea Causey Creatinine [Mass/Vol] 1.00 mg/dL Normal 0.70-1.30 [facility] Comment on above: Performed By: #### U CLINT, CMP, LIPID, DBIL, PHOS, MG #### [facility] [address] [address] [address] Brea Causey EGFR-AF MONTENEGRIN >60 Normal >=[address] [facility] Comment on above: Performed By: #### U CLINT, CMP, LIPID, DBIL, PHOS, MG #### [facility] [address] [place] [address] Dr. Brea Causey EGFR-NON AF MONTENEGRIN >60 Normal >=60 [facility] Comment on above: Performed By: #### U CLINT, CMP, LIPID, DBIL, PHOS, MG #### [facility] [address] [place] [address] Dr. Brea Causey Globulin (S) [Mass/Vol] 3.3 g/dL Normal [facility] Comment on above: Performed By: #### U CLINT, CMP, LIPID, DBIL, PHOS, MG #### [facility] [address] [place] [address] Dr. Brea Causey Glucose [Mass/Vol] 164 mg/dL Critically high 74-106 [facility] Comment on above: Performed By: #### U CLINT, CMP, LIPID, DBIL, PHOS, MG #### [facility] [address] [place] [address] Dr. Brea Causey Potassium [Moles/Vol] 4.4 mmol/L Normal 3.5-5.1 [facility] Comment on above: Performed By: #### U CLINT, CMP, LIPID, DBIL, PHOS, MG #### [facility] [address] [place] [address] Dr. Brea Causey Protein [Mass/Vol] 7.3 g/dL Normal 6.4-8.2 [facility] Comment on above: Performed By: #### U CLINT, CMP, LIPID, DBIL, PHOS, MG #### [facility] [address] [address] [address] Brea Causey Sodium [Moles/Vol] 131 mmol/L Critically low 136-145 Th [facility] Comment on above: Performed By: #### U CLINT, CMP, LIPID, DBIL, PHOS, MG #### [facility] [address] [place] [address] Dr. Brea Causey Urea nitrogen [Mass/Vol] 13.0 mg/dL Normal 7.0-18.0 [facility] Comment on above: Performed By: #### U CLINT, CMP, LIPID, DBIL, PHOS, MG #### [facility] [address] [place] [address] Dr. Brea Causey Urea nitrogen/Creatinine [Mass ratio] 13.0 mg/mg Normal [facility] Comment on above: Performed By: #### U CLINT, CMP, LIPID, DBIL, PHOS, MG #### [facility] [address] [address] [address] Brea Causey URIC ACID SERUMon 04-03-2022 Urate [Mass/Vol] 6.1 mg/dL Normal 3.5-7.[address] [facility] Comment on above: Performed By: #### U CLINT, CMP, LIPID, DBIL, PHOS, MG #### [facility] [address] [place] [address] Dr. Brea Causey TESTOSTERONE, FREE,DIRECT, T OTALon 03-13-2022 Free Testosterone(Direct) 6.9 pg/mL Normal 6.6-18.[address] [facility] Comment on above: Result Comment: Perf ormed at: BN Performed By: #### T ESTFRD #### [facility] [address] [place], [place] [id number] Dr. Brea Casuey Testosterone [Mass/Vol] 428 ng/dL Normal 264-916 [facility] Comment on above: Result Comment: Adul t male reference interval is based on a population of healthy nonobese males (BMI <30) between 19 and 39 years old. Steven et.al. JCEM 2017,102;[id number]. PMID: [id number]. Performed at: CB Performed By: #### T ESTFRD #### [facility] [address] [id number] [address] Brea Causey BK VIRUS PCR QUANTon 022 BKV DNA QUANT PCR PLASMA Negative Normal Negative [facility] Comment on above: Result Comment: No B K DNA detected. . The linear range of the assay is 22 - 100,000,000 IU/mL. Performed By: #### B KVIRUS #### [facility] [address] [place] [address] Dr. Brea Causey Log10 BKV DNA Plasma Normal [facility] Comment on above: Performed By: #### B KVIRUS #### [facility] [address] [place] [address] Dr. Brea Causey FK506 (TACROLIMUS) WHOLE BLO ODon 03-11-2022 Tacrolimus (FK506), Blood 4.7 ng/mL Normal 2.0-20.0 [facility] Comment on above: Result Comment: Trou gh (immediately following transplant) 15.0 . Trough (steady state, 2 weeks or more after transplant): 3.0 - 8.0 . Performed by LC-MS/MS technology. Performed By: #### C BC #### [facility] [address] [place] [address] Dr. Brea Causey BILIRUBIN CONJUGATED (DIRECT )on 03-08-2022 BILI, CONJUGATED 0.1 mg/dL Normal 0.0-0.2 [facility] Comment on above: Performed By: #### U CLINT, CMP, LIPID, DBIL, PHOS, MG #### [facility] [address] [place] [address] Dr. rBea Causey CBC AUTO DIFFon 03-08-2022 BASO # 0.0 103/ul Normal 0.0-0.1 [facility] Comment on above: Performed By: #### U CLINT, CMP, LIPID, DBIL, PHOS, MG #### [facility] [address] [place] [address] Dr. Brea Causey Basophils/100 WBC (Bld) 0.7 % Normal 0.2-2.0 [facility] Comment on above: Performed By: #### U CLINT, CMP, LIPID, DBIL, PHOS, MG #### [facility] [address] [place] [address] Dr. Brea Causey EO # 0.2 103/ul Normal 0.0-0.7 [facility] Comment on above: Performed By: #### U CLINT, CMP, LIPID, DBIL, PHOS, MG #### [facility] [address] [place] [address] Dr. Brea Causey Eosinophils/100 WBC (Bld) 3.1 % Normal 0.9-7.0 [facility] Comment on above: Performed By: #### U CLINT, CMP, LIPID, DBIL, PHOS, MG #### [facility] [address] [place] [address] Dr. Brea Causey Erythrocyte distribution width (RBC) [Ratio] 13.3 % Normal 11.0-15.0 [facility] Comment on above: Performed By: #### U CLINT, CMP, LIPID, DBIL, PHOS, MG #### [facility] [address] [place] [address] Dr. Brea Causey Hematocrit (Bld) [Volume fraction] 35.7 % Critically low 42.0-54.0 [facility] Comment on above: Performed By: #### U CLINT, CMP, LIPID, DBIL, PHOS, MG #### [facility] [address] [place] [address] Dr. Brea Causey Hemoglobin (Bld) [Mass/Vol] 12.0 g/dL Critically low 14.0-18.0 [facility] Comment on above: Performed By: #### U CLINT, CMP, LIPID, DBIL, PHOS, MG #### [facility] [address] [place] [address] Dr. Brea Causey IG # 0.06 10e3/ul Critically high 0.00-0.03 [facility] Comment on above: Performed By: #### U CLINT, CMP, LIPID, DBIL, PHOS, MG #### [facility] [address] [place] [address] Dr. Brea Causey IG % 1.0 % Critically high 0.0-0.5 [facility] Comment on above: Performed By: #### U CLINT, CMP, LIPID, DBIL, PHOS, MG #### [facility] [address] [place] [address] Dr. Brea Causey LYMPH # 0.8 103/ul Critically low 1.2-3.8 [facility] Comment on above: Performed By: #### U CLINT, CMP, LIPID, DBIL, PHOS, MG #### [facility] [address] [address] [address] Brea aCusey Lymphocytes/100 WBC (Bld) 12.9 % Critically low 20.5-60.0 [facility] Comment on above: Performed By: #### U CLINT, CMP, LIPID, DBIL, PHOS, MG #### [facility] [address] [address] [address] Brea Causey MANUAL DIFF REQ NO Normal [facility] Comment on above: Performed By: #### U CLINT, CMP, LIPID, DBIL, PHOS, MG #### [facility] [address] [place] [address] Dr. Brea Causey MCH (RBC) [Entitic mass] 29.5 pg Normal 25.9-34.0 [facility] Comment on above: Performed By: #### U CLINT, CMP, LIPID, DBIL, PHOS, MG #### [facility] [address] [place] [address] Dr. Brea Causey MCHC (RBC) [Mass/Vol] 33.6 g/dL Normal 29.9-35.2 [facility] Comment on above: Performed By: #### U CLINT, CMP, LIPID, DBIL, PHOS, MG #### [facility] [address] [place] [address] Dr. Brea Causey MCV (RBC) [Entitic vol] 87.7 fL Normal 80.0-94.0 [facility] Comment on above: Performed By: #### U CLINT, CMP, LIPID, DBIL, PHOS, MG #### [facility] [address] [place] [address] Dr. Brea Causey MONO # 0.6 103/ul Normal 0.3-0.8 [facility] Comment on above: Performed By: #### U CLINT, CMP, LIPID, DBIL, PHOS, MG #### [facility] [address] [place] [address] Dr. Brea Causey Monocytes/100 WBC (Bld) 9.8 % Normal 1.7-12.0 [facility] Comment on above: Performed By: #### U CLINT, CMP, LIPID, DBIL, PHOS, MG #### [facility] [address] [address] [address] Brea Causey NEUT # 4.4 103/ul Normal 1.4-6.5 [facility] Comment on above: Performed By: #### U CLINT, CMP, LIPID, DBIL, PHOS, MG #### [facility] [address] [address] [address] Brea Causey Neutrophils/100 WBC (Bld) 72.5 % Normal 43.0-75.0 [facility] Comment on above: Performed By: #### U CLINT, CMP, LIPID, DBIL, PHOS, MG #### [facility] [address] [address] [address] Brea Causey Platelet mean volume (Bld) [Entitic vol] 9.6 fL Normal 9.5-13.5 [facility] Comment on above: Performed By: #### U CLINT, CMP, LIPID, DBIL, PHOS, MG #### [facility] [address] [address] [address] Brea Causey PLT 265 103/ul Normal 150-450 [facility] Comment on above: Performed By: #### U CLINT, CMP, LIPID, DBIL, PHOS, MG #### [facility] [address] [address] [address] Brea Causey RBC 4.07 106/ul Critically low 4.70-6.10 [facility] Comment on above: Performed By: #### U CLINT, CMP, LIPID, DBIL, PHOS, MG #### [facility] [address] [address] [address] Brea Causey WBC 6.0 103/ul Normal 4.0-11.0 [facility] Comment on above: Performed By: #### U CLINT, CMP, LIPID, DBIL, PHOS, MG #### [facility] [address] [address] [address] Brea Causey GLYCOHEMOGLOBIN A1Con 2021 ADA RECOMMENDATION SEE BELOW Normal [facility] Comment on above: Result Comment: ADA RECOMMENDED LIMIT 4.0 - 6.0 ADA THERAPEUTIC TARGET < 7.0 ACTION SUGGESTED > 7.0 Performed By: #### U CLINT, CMP, LIPID, DBIL, PHOS, MG #### [facility] [address] [address] [address] Brea Causey Glucose [Mass/Vol] 169 mg/dL Normal [facility] Comment on above: Performed By: #### U CLINT, CMP, LIPID, DBIL, PHOS, MG #### [facility] [address] [address] [address] Brea Causey HbA1c (Bld) [Mass fraction] 7.5 % Critically high 4.5-6.2 [facility] Comment on above: Performed By: #### U CLINT, CMP, LIPID, DBIL, PHOS, MG #### [facility] [address] [place] [address] Dr. Brea Causey LIPID PROFILEon 03-08-2022 CHOL-HDL RATIO NORM SEE BELOW Normal [facility] Comment on above: Result Comment: 3.3 - 4.4 LOW RISK 4.4 - 7.1 AVERAGE RISK 7.1 - 11.0 MODERATE RISK >11.0 HIGH RISK Performed By: #### U CLINT, CMP, LIPID, DBIL, PHOS, MG #### [facility] [address] [address] [address] Brea Causey Cholesterol [Mass/Vol] 77 mg/dL Normal <=200 Th [facility] Comment on above: Performed By: #### U CLINT, CMP, LIPID, DBIL, PHOS, MG #### [facility] [address] [address] [address] Brea Causey Cholesterol in HDL [Mass/Vol] 49 mg/dL Normal 40-60 [facility] Comment on above: Performed By: #### U CLINT, CMP, LIPID, DBIL, PHOS, MG #### [facility] [address] [address] [address] Brea Causey Cholesterol in LDL [Mass/Vol] 20.4 mg/dL Normal [facility] Comment on above: Performed By: #### U CLINT, CMP, LIPID, DBIL, PHOS, MG #### [facility] [address] [address] [address] Brea Causey Cholesterol.total/Chol esterol in HDL [Mass ratio] 1.6 {ratio} Normal [facility] Comment on above: Performed By: #### U CLINT, CMP, LIPID, DBIL, PHOS, MG #### [facility] [address] [address] [address] Brea Causey HDL NORMAL > or = 60 mg/dl - LO W CARDIOVASCULAR RISK <40 mg/dl - HIGH CARDIOVASCULAR RISK Normal [facility] Comment on above: Performed By: #### U CLINT, CMP, LIPID, DBIL, PHOS, MG #### [facility] [address] [address] [address] Brea Causey LDL CALC NORMAL SEE BELOW Normal [facility] Comment on above: Result Comment: <100 mg/dl OPTIMAL 100 - 129 mg/dl NEAR OR ABOVE OPTIMAL 130 - 159 mg/dl BORDERLINE HIGH 160 - 189 mg/dl HIGH >190 mg/dl VERY HIGH Performed By: #### U CLINT, CMP, LIPID, DBIL, PHOS, MG #### [facility] [address] [address] [address] Brea Causey Triglyceride [Mass/Vol] 38 mg/dL Normal <=150 [facility] Comment on above: Performed By: #### U CLINT, CMP, LIPID, DBIL, PHOS, MG #### [facility] [address] [address] [address] Brea Causey VLDL CALC 7.6 mg/dL Normal [facility] Comment on above: Performed By: #### U CLINT, CMP, LIPID, DBIL, PHOS, MG #### [facility] [address] [address] [address] Brea Causey MAGNESIUMon 03-08-2022 Magnesium [Mass/Vol] 1.5 mg/dL Critically low 1.8-2.4 [facility] Comment on above: Performed By: #### U CLINT, CMP, LIPID, DBIL, PHOS, MG #### [facility] [address] [address] [address] Brea Causey PHOSPHORUSon 03-08-2022 Phosphate [Mass/Vol] 3.6 mg/dL Normal 2.6-4.7 [facility] Comment on above: Performed By: #### U CLINT, CMP, LIPID, DBIL, PHOS, MG #### [facility] [address] [place] [address] Dr. Brea Causey PROF 14(COMP METB)on 022 Albumin [Mass/Vol] 4.0 g/dL Normal 3.4-5.0 [facility] Comment on above: Performed By: #### U CLINT, CMP, LIPID, DBIL, PHOS, MG #### [facility] [address] [place] [address] Dr. Brea Causey Albumin/Globulin [Mass ratio] 1.2 {ratio} Normal [facility] Comment on above: Performed By: #### U CLINT, CMP, LIPID, DBIL, PHOS, MG #### [facility] [address] [place] [address] Dr. Brea Causey ALP [Catalytic activity/Vol] 176 U/L Critically high 46-116 [facility] Comment on above: Performed By: #### U CLINT, CMP, LIPID, DBIL, PHOS, MG #### [facility] [address] [place] [address] Dr. Brea Causey ALT [Catalytic activity/Vol] 21 U/L Normal 16-63 [facility] Comment on above: Performed By: #### U CLINT, CMP, LIPID, DBIL, PHOS, MG #### [facility] [address] [place] [address] Dr. Brea Causey Anion gap [Moles/Vol] 12.0 mmol/L Normal [facility] Comment on above: Performed By: #### U CLINT, CMP, LIPID, DBIL, PHOS, MG #### [facility] [address] [place] [address] Dr. Brea Causey AST [Catalytic activity/Vol] 13 U/L Critically low 15-37 [facility] Comment on above: Performed By: #### U CLINT, CMP, LIPID, DBIL, PHOS, MG #### [facility] [address] [address] [address] Brea Causey Bilirubin [Mass/Vol] 0.3 mg/dL Normal 0.2-1.0 [facility] Comment on above: Performed By: #### U CLINT, CMP, LIPID, DBIL, PHOS, MG #### [facility] [address] [address] [address] Brea Causey Calcium [Mass/Vol] 7.9 mg/dL Critically low 8.5-10.1 Th e [facility] Comment on above: Performed By: #### U CLINT, CMP, LIPID, DBIL, PHOS, MG #### [facility] [address] [address] [address] Brea Causey Chloride [Moles/Vol] 100 mmol/L Normal 98-107 [facility] Comment on above: Performed By: #### U CLINT, CMP, LIPID, DBIL, PHOS, MG #### [facility] [address] [place] [address] Dr. Brea Causey CO2 [Moles/Vol] 27.3 mmol/L Normal 21.0-32.0 [facility] Comment on above: Performed By: #### U CLINT, CMP, LIPID, DBIL, PHOS, MG #### [facility] [address] [place] [address] Dr. Brea Causey Creatinine [Mass/Vol] 1.00 mg/dL Normal 0.70-1.30 [facility] Comment on above: Performed By: #### U CLINT, CMP, LIPID, DBIL, PHOS, MG #### [facility] [address] [place] [address] Dr. Brea Causey EGFR-AF MONTENEGRIN >60 Normal >=[address] [facility] Comment on above: Performed By: #### U CLINT, CMP, LIPID, DBIL, PHOS, MG #### [facility] [address] [place] [address] Dr. Brea Causey EGFR-NON AF MONTENEGRIN >60 Normal >=60 [facility] Comment on above: Performed By: #### U CLINT, CMP, LIPID, DBIL, PHOS, MG #### [facility] [address] [address] [address] Brea Causey Globulin (S) [Mass/Vol] 3.3 g/dL Normal [facility] Comment on above: Performed By: #### U CLINT, CMP, LIPID, DBIL, PHOS, MG #### [facility] [address] [address] [address] Brea Causey Glucose [Mass/Vol] 155 mg/dL Critically high 74-106 T [facility] Comment on above: Performed By: #### U CLINT, CMP, LIPID, DBIL, PHOS, MG #### [facility] [address] [place] [address] Dr. Brea Causey Potassium [Moles/Vol] 4.3 mmol/L Normal 3.5-5.1 [facility] Comment on above: Performed By: #### U CLINT, CMP, LIPID, DBIL, PHOS, MG #### [facility] [address] [place] [address] Dr. Brea Causey Protein [Mass/Vol] 7.3 g/dL Normal 6.4-8.2 [facility] Comment on above: Performed By: #### U CLINT, CMP, LIPID, DBIL, PHOS, MG #### [facility] [address] [place] [address] Dr. Brea Causey Sodium [Moles/Vol] 135 mmol/L Critically low 136-145 Th [facility] Comment on above: Performed By: #### U CLINT, CMP, LIPID, DBIL, PHOS, MG #### [facility] [address] [place] [address] Dr. Brea Causey Urea nitrogen [Mass/Vol] 13.0 mg/dL Normal 7.0-18.0 [facility] Comment on above: Performed By: #### U CLINT, CMP, LIPID, DBIL, PHOS, MG #### [facility] [address] [place] [address] Dr. Brea Causey Urea nitrogen/Creatinine [Mass ratio] 13.0 mg/mg Normal [facility] Comment on above: Performed By: #### U CLINT, CMP, LIPID, DBIL, PHOS, MG #### [facility] [address] [place] [address] Dr. Brea Causey URIC ACID SERUMon 03-08-2022 Urate [Mass/Vol] 7.3 mg/dL Critically high 3.5-7.2 [facility] Comment on above: Performed By: #### U CLINT, CMP, LIPID, DBIL, PHOS, MG #### [facility] [address] [address] [address] Brea Causey Claudio 03-05-2022 L - -------- Specimen: [id number] Received: 03/05/22 Status: CHERI Bonilla Num: [id number] Spec Type: Surgical Subm Dr: Tj Rao MD Tissues: A Colon Biopsy (COLON BX) B Colon Biopsy (DIVERTICULAR COLITIS) Procedures: HE Stain/4, Gross/Micro L4/2 -------- Age/ Patient Sex Location Account Attending Physician -------- Roger Kerr 71/M [id number] Tj Rao MD -------- SPEC NUM: [id number] RECD: 03/05/22 STATUS: CHERI FITCH NUM: [id number] ESTEFANI: 03/05/22 DR: Tj Rao MD ENTERED: 03/05/[address] [facility] [address]: SPEC TYPE: Surgical DEPT: S ORDERED: [...] in one cassette labeled B1. -------- Specimen: [id number] Received: 03/05/22 Status: CHERI Bonilla Num: [id number] Spec Type: Surgical Subm Dr: Tj Roa MD Tissues: A Colon Biopsy (COLON BX) B Colon Biopsy (DIVERTICULAR COLITIS) Procedures: HE Stain/4, Gross/Micro L4/2 -------- Patient: Roger Kerr Tyson [id number] (Continued) -------- Specimen: [id number] Received: 03/05/22 (Continued) Signed (signature on file) Kalpana Shaw MD 03/07/22 1025 -------- Specimen: [id number] Received: 03/05/22 Status: CHERI Bonilla Num: [id number] Spec Type: Surgical Subm Dr: Tj Rao MD Tissues: A Colon Biopsy (COLON BX) B Colon Biopsy (DIVERTICULAR COLITIS) Procedures: HE Stain/4, Gross/Micro L4/2 -------- Patient: Roger Kerr [id number] (Continued) -------- Specimen: [id number] Received: 03/05/22 (Continued) Microscopic Description A. Two glass slides with H E stained material have been examined. The microscopic findings support the above pathologic diagnosis. B. Two glass slides with H E stained material have been examined. The microscopic findings support the above pathologic diagnosis. CPT Codes 83438?2 -------- -------- Specimen: [id number] Received: 03/05/22 Status: CHERI Bonilla Num: [id number] Spec Type: Surgical Subm Dr: Tj Rao MD Tissues: A Colon Biopsy (COLON BX) B Colon Biopsy (DIVERTICULAR COLITIS) Procedures: HE Stain/4, Gross/Micro L4/2 -------- Patient: Roger Kerr [id number] (Continued) -------- Signed (signature on file) Kalpana Shaw MD 03/07/22 1025 [facility] COVID-19 Antigenon 2 COVID-19 Antigen [...] developed and its performance characteristic determined by [email or web address] and validated at [facility]. This test has not been [...] for SARS Antigen by ROCHELLE PERFORMED BY: [place] [address] PATHOLOGIST SATURATOR TENDER FEI WOODRUFF M.D. Normal [facility] Comment on above: Performed By: #### C OVID-19 MARQUISE, SOFIANEG #### [facility] [address] [place] [address] COVID-19 SOFIAOrdered By: Sheila Rao on 03-01-2022 SARS-CoV+SARS-CoV-2 (COVID-19) Ag IA.rapid Ql (Resp) Negative Negative [facility] Comment on above: This is a duplicate Marquise SARS Antigen (ROCHELLE) result to be used for statistical tracking purpose only. No Panel InformationOrdered By: Tj Rao on 03-01-2022 SARS Antigen (LFIA) [facility] Marquise Ag Negativeon 03-01-20 22 Marquise Ag Negative Negative Normal Negative [facility] Comment on above: Result Comment: This is a duplicate Marquise SARS Antigen (ROCHELLE) result to be used for statistical tracking purpose only. PERFORMED BY: [place] [address] PATHOLOGIST SATURATOR TENDER FEI WOODRUFF M.D. Performed By: #### C OVID-19 MARQUISE, SOFIANEG #### [facility] [address] [place], [place] [id number] [facility] FK506 (TACROLIMUS) WHOLE BLO ODon 02-05-2022 Tacrolimus (FK506), Blood 5.4 ng/mL Normal 2.0-20.0 [facility] Comment on above: Result Comment: Trou gh (immediately following transplant) 15.0 . Trough (steady state, 2 weeks or more after transplant): 3.0 - 8.0 . Performed by LC-MS/MS technology. Performed By: #### U CLINT, CMP, LIPID, DBIL, PHOS, MG #### [facility] [address] [place] [address] Dr. Brea Causey BILIRUBIN CONJUGATED (DIRECT )on 02-01-2022 BILI, CONJUGATED 0.1 mg/dL Normal 0.0-0.2 [facility] Comment on above: Performed By: #### C BC #### [facility] [address] [place] [address] Dr. Brea Causey CBC AUTO DIFFon 02-01-2022 BASO # 0.0 103/ul Normal 0.0-0.1 [facility] Comment on above: Performed By: #### B KVIRUS #### [facility] [address] [place] [address] Dr. Brea Causey Basophils/100 WBC (Bld) 0.6 % Normal 0.2-2.0 [facility] Comment on above: Performed By: #### B KVIRUS #### [facility] [address] [place] [address] Dr. Brea Causey EO # 0.2 103/ul Normal 0.0-0.7 [facility] Comment on above: Performed By: #### B KVIRUS #### [facility] [address] [place] [address] Dr. Brea Causey Eosinophils/100 WBC (Bld) 3.5 % Normal 0.9-7.0 [facility] Comment on above: Performed By: #### B KVIRUS #### [facility] [address] [place] [address] Dr. Brea Causey Erythrocyte distribution width (RBC) [Ratio] 13.0 % Normal 11.0-15.0 [facility] Comment on above: Performed By: #### B KVIRUS #### [facility] [address] [place] [address] Dr. Brea Causey Hematocrit (Bld) [Volume fraction] 36.9 % Critically low 42.0-54.0 [facility] Comment on above: Performed By: #### B KVIRUS #### [facility] [address] [place] [address] Dr. Brea Causey Hemoglobin (Bld) [Mass/Vol] 12.0 g/dL Critically low 14.0-18.0 [facility] Comment on above: Performed By: #### B KVIRUS #### [facility] [address] [place] [address] Dr. Brea Causey IG # 0.07 10e3/ul Critically high 0.00-0.03 [facility] Comment on above: Performed By: #### B KVIRUS #### [facility] [address] [place] [address] Dr. Brea Causey IG % 1.0 % Critically high 0.0-0.5 [facility] Comment on above: Performed By: #### B KVIRUS #### [facility] [address] [place] [address] Dr. Brea Causey LYMPH # 1.0 103/ul Critically low 1.2-3.8 [facility] Comment on above: Performed By: #### B KVIRUS #### [facility] [address] [place] [address] Dr. Brea Causey Lymphocytes/100 WBC (Bld) 14.2 % Critically low 20.5-60.0 [facility] Comment on above: Performed By: #### B KVIRUS #### [facility] [address] [place] [address] Dr. Brea Causey MANUAL DIFF REQ NO Normal [facility] Comment on above: Performed By: #### B KVIRUS #### [facility] [address] [place] [address] Dr. Brea Causey MCH (RBC) [Entitic mass] 29.1 pg Normal 25.9-34.0 [facility] Comment on above: Performed By: #### B KVIRUS #### [facility] [address] [place] [address] Dr. Brea Causey MCHC (RBC) [Mass/Vol] 32.5 g/dL Normal 29.9-35.2 [facility] Comment on above: Performed By: #### B KVIRUS #### [facility] [address] [place] [address] Dr. Brea Causey MCV (RBC) [Entitic vol] 89.6 fL Normal 80.0-94.0 [facility] Comment on above: Performed By: #### B KVIRUS #### [facility] [address] [place] [address] Dr. Brea Causey MONO # 0.7 103/ul Normal 0.3-0.8 [facility] Comment on above: Performed By: #### B KVIRUS #### [facility] [address] [place] [address] Dr. Brea Causey Monocytes/100 WBC (Bld) 9.9 % Normal 1.7-12.0 [facility] Comment on above: Performed By: #### B KVIRUS #### [facility] [address] [place] [address] Dr. Brea Causey NEUT # 4.9 103/ul Normal 1.4-6.5 [facility] Comment on above: Performed By: #### B KVIRUS #### [facility] [address] [place] [address] Dr. Brea Causey Neutrophils/100 WBC (Bld) 70.8 % Normal 43.0-75.0 [facility] Comment on above: Performed By: #### B KVIRUS #### [facility] [address] [place] [address] Dr. Brea Causey Platelet mean volume (Bld) [Entitic vol] 9.6 fL Normal 9.5-13.5 [facility] Comment on above: Performed By: #### B KVIRUS #### [facility] [address] [place] [address] Dr. Brea Causey PLT 247 103/ul Normal 150-450 [facility] Comment on above: Performed By: #### B KVIRUS #### [facility] [address] [place] [address] Dr. Brea Causey RBC 4.12 106/ul Critically low 4.70-6.10 [facility] Comment on above: Performed By: #### B KVIRUS #### [facility] [address] [place] [address] Dr. Brea Causey WBC 6.9 103/ul Normal 4.0-11.0 [facility] Comment on above: Performed By: #### B KVIRUS #### [facility] [address] [place], [place] [address] Dr. Brea Causey LIPID PROFILEon 02-01-2022 CHOL-HDL RATIO NORM SEE BELOW Normal [facility] Comment on above: Result Comment: 3.3 - 4.4 LOW RISK 4.4 - 7.1 AVERAGE RISK 7.1 - 11.0 MODERATE RISK >11.0 HIGH RISK Performed By: #### C BC #### [facility] [address] [place], [place] [address] Dr. Brea Causey Cholesterol [Mass/Vol] 77 mg/dL Normal <=200 Th [facility] Comment on above: Performed By: #### C BC #### [facility] [address] [id number] [address] Brea Causey Cholesterol in HDL [Mass/Vol] 40 mg/dL Normal 40-60 [facility] Comment on above: Performed By: #### C BC #### [facility] [address] [id number] [address] Brea Causey Cholesterol in LDL [Mass/Vol] 21.0 mg/dL Normal [facility] Comment on above: Performed By: #### C BC #### [facility] [address] [place], [place] [address] Dr. Brea Causey Cholesterol.total/Chol esterol in HDL [Mass ratio] 1.9 {ratio} Normal [facility] Comment on above: Performed By: #### C BC #### [facility] [address] [id number] [address] Brea Causey HDL NORMAL > or = 60 mg/dl - LO W CARDIOVASCULAR RISK <40 mg/dl - HIGH CARDIOVASCULAR RISK Normal [facility] Comment on above: Performed By: #### C BC #### [facility] [address] [place] [address] [address] [address] Brea Causey LDL CALC NORMAL SEE BELOW Normal [facility] Comment on above: Result Comment: <100 mg/dl OPTIMAL 100 - 129 mg/dl NEAR OR ABOVE OPTIMAL 130 - 159 mg/dl BORDERLINE HIGH 160 - 189 mg/dl HIGH >190 mg/dl VERY HIGH Performed By: #### C BC #### [facility] [address] [place] [address] Dr. Brea Causey Triglyceride [Mass/Vol] 80 mg/dL Normal <=150 [facility] Comment on above: Performed By: #### C BC #### [facility] [address] [place] [address] Dr. Brea Causey VLDL CALC 16.0 mg/dL Normal [facility] Comment on above: Performed By: #### C BC #### [facility] [address] [place] [address] Dr. Brea Causey MAGNESIUMon 02-01-2022 Magnesium [Mass/Vol] 1.5 mg/dL Critically low 1.8-2.4 [facility] Comment on above: Performed By: #### C BC #### [facility] [address] [place] [address] Dr. Brea Causey PHOSPHORUSon 02-01-2022 Phosphate [Mass/Vol] 4.1 mg/dL Normal 2.6-4.7 [facility] Comment on above: Performed By: #### C BC #### [facility] [address] [place] [address] Dr. Brea Causey PROF 14(COMP METB)on 022 Albumin [Mass/Vol] 4.0 g/dL Normal 3.4-5.0 [facility] Comment on above: Performed By: #### C BC #### [facility] [address] [place] [address] Dr. Brea Causey Albumin/Globulin [Mass ratio] 1.3 {ratio} Normal [facility] Comment on above: Performed By: #### C BC #### [facility] [address] [place] [address] Dr. Brea Causey ALP [Catalytic activity/Vol] 162 U/L Critically high 46-116 [facility] Comment on above: Performed By: #### C BC #### [facility] [address] [place] [address] Dr. Brea Causey ALT [Catalytic activity/Vol] 25 U/L Normal 16-63 [facility] Comment on above: Performed By: #### C BC #### [facility] [address] [address] [address] Brea Causey Anion gap [Moles/Vol] 11.1 mmol/L Normal [facility] Comment on above: Performed By: #### C BC #### [facility] [address] [address] [address] Brea Causey AST [Catalytic activity/Vol] 16 U/L Normal 15-37 [facility] Comment on above: Performed By: #### C BC #### [facility] [address] [address] [address] Brea Causey Bilirubin [Mass/Vol] 0.4 mg/dL Normal 0.2-1.0 [facility] Comment on above: Performed By: #### C BC #### [facility] [address] [address] [address] Brea Causey Calcium [Mass/Vol] 8.2 mg/dL Critically low 8.5-10.1 [facility] Comment on above: Performed By: #### C BC #### [facility] [address] [address] [address] Brea Causey Chloride [Moles/Vol] 99 mmol/L Normal 98-107 [facility] Comment on above: Performed By: #### C BC #### [facility] [address] [address] [address] Brea Causey CO2 [Moles/Vol] 28.1 mmol/L Normal 21.0-32.0 [facility] Comment on above: Performed By: #### C BC #### [facility] [address] [address] [address] Brea Causey Creatinine [Mass/Vol] 1.13 mg/dL Normal 0.70-1.30 [facility] Comment on above: Performed By: #### C BC #### [facility] [address] [address] [address] Brea Causey EGFR-AF MONTENEGRIN >60 Normal >=60 [facility] Comment on above: Performed By: #### C BC #### [facility] [address] [address] [address] Brea Causey EGFR-NON AF MONTENEGRIN >60 Normal >=60 [facility] Comment on above: Performed By: #### C BC #### [facility] [address] [address] [address] Brea Causey Globulin (S) [Mass/Vol] 3.1 g/dL Normal [facility] Comment on above: Performed By: #### C BC #### [facility] [address] [address] [address] Brea Causey Glucose [Mass/Vol] 177 mg/dL Critically high 74-106 T [facility] Comment on above: Performed By: #### C BC #### [facility] [address] [place] [address] Dr. Brea Causey Potassium [Moles/Vol] 5.2 mmol/L Critically high 3.5-5.1 [facility] Comment on above: Performed By: #### C BC #### [facility] [address] [place] [address] Dr. Brea Causey Protein [Mass/Vol] 7.1 g/dL Normal 6.4-8.2 [facility] Comment on above: Performed By: #### C BC #### [facility] [address] [place] [address] Dr. Brea Causey Sodium [Moles/Vol] 133 mmol/L Critically low 136-145 Th [facility] Comment on above: Performed By: #### C BC #### [facility] [address] [place] [address] Dr. Brea Causey Urea nitrogen [Mass/Vol] 12.0 mg/dL Normal 7.0-18.0 [facility] Comment on above: Performed By: #### C BC #### [facility] [address] [place] [address] Dr. Brea Causey Urea nitrogen/Creatinine [Mass ratio] 10.6 mg/mg Normal [facility] Comment on above: Performed By: #### C BC #### [facility] [address] [place] [address] Dr. Brea Causey URIC ACID SERUMon 02-01-2022 Urate [Mass/Vol] 7.7 mg/dL Critically high 3.5-7.2 [facility] Comment on above: Performed By: #### C BC #### [facility] [address] [place] [address] Dr. Brea Causey FK506 (TACROLIMUS) WHOLE BLO ODon 01-06-2022 Tacrolimus (FK506), Blood 11.4 ng/mL Normal 2.0-20.0 [facility] Comment on above: Result Comment: Trou gh (immediately following transplant) 15.0 . Trough (steady state, 2 weeks or more after transplant): 3.0 - 8.0 . Performed by LC-MS/MS technology. Performed By: #### B KVIRUS #### [facility] [address] [place] [address] Dr. Brea Causey BILIRUBIN CONJUGATED (DIRECT )on 01-04-2022 BILI, CONJUGATED 0.1 mg/dL Normal 0.0-0.[address] [facility] Comment on above: Performed By: #### U CLINT, CMP, LIPID, DBIL, PHOS, MG #### [facility] [address] [place] [address] Dr. Brea Causey BOX TEST SENT OUTon 01-05-20 SENT TO REF LAB 01/04/2022 Normal [facility] Comment on above: Performed By: #### U CLINT, CMP, LIPID, DBIL, PHOS, MG #### [facility] [address] [place] [address] Dr. Brea Causey CBC AUTO DIFFon 01-04-2022 BASO # 0.0 103/ul Normal 0.0-0.1 [facility] Comment on above: Performed By: #### U CLINT, CMP, LIPID, DBIL, PHOS, MG #### [facility] [address] [place] [address] Dr. Brea Causey Basophils/100 WBC (Bld) 0.5 % Normal 0.2-2.0 [facility] Comment on above: Performed By: #### U CLINT, CMP, LIPID, DBIL, PHOS, MG #### [facility] [address] [address] [address] Brea Causey EO # 0.3 103/ul Normal 0.0-0.7 [facility] Comment on above: Performed By: #### U CLINT, CMP, LIPID, DBIL, PHOS, MG #### [facility] [address] [address] [address] Brea Causey Eosinophils/100 WBC (Bld) 3.9 % Normal 0.9-7.0 [facility] Comment on above: Performed By: #### U CLINT, CMP, LIPID, DBIL, PHOS, MG #### [facility] [address] [address] [address] Brea Causey Erythrocyte distribution width (RBC) [Ratio] 13.1 % Normal 11.0-15.0 [facility] Comment on above: Performed By: #### U CLINT, CMP, LIPID, DBIL, PHOS, MG #### [facility] [address] [address] [address] Brea Causey Hematocrit (Bld) [Volume fraction] 37.4 % Critically low 42.0-54.0 [facility] Comment on above: Performed By: #### U CLINT, CMP, LIPID, DBIL, PHOS, MG #### [facility] [address] [place] [address] Dr. Brea Causey Hemoglobin (Bld) [Mass/Vol] 12.0 g/dL Critically low 14.0-18.0 [facility] Comment on above: Performed By: #### U CLINT, CMP, LIPID, DBIL, PHOS, MG #### [facility] [address] [address] [address] Brea Causey IG # 0.07 10e3/ul Critically high 0.00-0.03 [facility] Comment on above: Performed By: #### U CLINT, CMP, LIPID, DBIL, PHOS, MG #### [facility] [address] [place] [address] Dr. Brea Causey IG % 1.1 % Critically high 0.0-0.5 [facility] Comment on above: Performed By: #### U CLINT, CMP, LIPID, DBIL, PHOS, MG #### [facility] [address] [place] [address] Dr. Brea Causey LYMPH # 0.8 103/ul Critically low 1.2-3.8 [facility] Comment on above: Performed By: #### U CLINT, CMP, LIPID, DBIL, PHOS, MG #### [facility] [address] [place] [address] Dr. Brea Causey Lymphocytes/100 WBC (Bld) 12.2 % Critically low 20.5-60.0 [facility] Comment on above: Performed By: #### U CLINT, CMP, LIPID, DBIL, PHOS, MG #### [facility] [address] [place] [address] Dr. Brea Causey MANUAL DIFF REQ NO Normal [facility] Comment on above: Performed By: #### U CLINT, CMP, LIPID, DBIL, PHOS, MG #### [facility] [address] [place] [address] Dr. Brea Causey MCH (RBC) [Entitic mass] 29.1 pg Normal 25.9-34.0 [facility] Comment on above: Performed By: #### U CLINT, CMP, LIPID, DBIL, PHOS, MG #### [facility] [address] [place] [address] Dr. Brea Causey MCHC (RBC) [Mass/Vol] 32.1 g/dL Normal 29.9-35.2 [facility] Comment on above: Performed By: #### U CLINT, CMP, LIPID, DBIL, PHOS, MG #### [facility] [address] [place] [address] Dr. Brea Causey MCV (RBC) [Entitic vol] 90.6 fL Normal 80.0-94.0 The [facility] Comment on above: Performed By: #### U CLINT, CMP, LIPID, DBIL, PHOS, MG #### [facility] [address] [place] [address] Dr. Brea Causey MONO # 0.5 103/ul Normal 0.3-0.8 [facility] Comment on above: Performed By: #### U CLINT, CMP, LIPID, DBIL, PHOS, MG #### [facility] [address] [address] [address] Brea Causey Monocytes/100 WBC (Bld) 8.0 % Normal 1.7-12.0 [facility] Comment on above: Performed By: #### U CLINT, CMP, LIPID, DBIL, PHOS, MG #### [facility] [address] [place] [address] Dr. Brea Causey NEUT # 5.0 103/ul Normal 1.4-6.5 [facility] Comment on above: Performed By: #### U CLINT, CMP, LIPID, DBIL, PHOS, MG #### [facility] [address] [place] [address] Dr. Brea Causey Neutrophils/100 WBC (Bld) 74.3 % Normal 43.0-75.0 [facility] Comment on above: Performed By: #### U CLINT, CMP, LIPID, DBIL, PHOS, MG #### [facility] [address] [place] [address] Dr. Brea Causey Platelet mean volume (Bld) [Entitic vol] 9.5 fL Normal 9.5-13.5 [facility] Comment on above: Performed By: #### U CLINT, CMP, LIPID, DBIL, PHOS, MG #### [facility] [address] [place] [address] Dr. Brea Causey PLT 243 103/ul Normal 150-450 [facility] Comment on above: Performed By: #### U CLINT, CMP, LIPID, DBIL, PHOS, MG #### [facility] [address] [place] [address] Dr. Brea Causey RBC 4.13 106/ul Critically low 4.70-6.10 [facility] Comment on above: Performed By: #### U CLINT, CMP, LIPID, DBIL, PHOS, MG #### [facility] [address] [place] [address] Dr. Brea Causey WBC 6.7 103/ul Normal 4.0-11.0 [facility] Comment on above: Performed By: #### U CLINT, CMP, LIPID, DBIL, PHOS, MG #### [facility] [address] [address] [address] Brea Causey LIPID PROFILEon 01-04-2022 CHOL-HDL RATIO NORM SEE BELOW Normal [facility] Comment on above: Result Comment: 3.3 - 4.4 LOW RISK 4.4 - 7.1 AVERAGE RISK 7.1 - 11.0 MODERATE RISK >11.0 HIGH RISK Performed By: #### U CLINT, CMP, LIPID, DBIL, PHOS, MG #### [facility] [address] [address] [address] Brea Causey Cholesterol [Mass/Vol] 81 mg/dL Normal <=200 [facility] Comment on above: Performed By: #### U CLINT, CMP, LIPID, DBIL, PHOS, MG #### [facility] [address] [address] [address] Brea Causey Cholesterol in HDL [Mass/Vol] 43 mg/dL Normal 40-60 [facility] Comment on above: Performed By: #### U CLINT, CMP, LIPID, DBIL, PHOS, MG #### [facility] [address] [address] [address] Brea Causey Cholesterol in LDL [Mass/Vol] 26.0 mg/dL Normal [facility] Comment on above: Performed By: #### U CLINT, CMP, LIPID, DBIL, PHOS, MG #### [facility] [address] [place] [address] Dr. Brea Causey Cholesterol.total/Chol esterol in HDL [Mass ratio] 1.9 {ratio} Normal [facility] Comment on above: Performed By: #### U CLINT, CMP, LIPID, DBIL, PHOS, MG #### [facility] [address] [address] [address] Brea Causey HDL NORMAL > or = 60 mg/dl - LO W CARDIOVASCULAR RISK <40 mg/dl - HIGH CARDIOVASCULAR RISK Normal [facility] Comment on above: Performed By: #### U CLINT, CMP, LIPID, DBIL, PHOS, MG #### [facility] [address] [address] [address] Brea Causey LDL CALC NORMAL SEE BELOW Normal [facility] Comment on above: Result Comment: <100 mg/dl OPTIMAL 100 - 129 mg/dl NEAR OR ABOVE OPTIMAL 130 - 159 mg/dl BORDERLINE HIGH 160 - 189 mg/dl HIGH >190 mg/dl VERY HIGH Performed By: #### U CLINT, CMP, LIPID, DBIL, PHOS, MG #### [facility] [address] [address] [address] Brea Causey Triglyceride [Mass/Vol] 60 mg/dL Normal <=150 [facility] Comment on above: Performed By: #### U CLINT, CMP, LIPID, DBIL, PHOS, MG #### [facility] [address] [address] [address] Brea Causey VLDL CALC 12.0 mg/dL Normal [facility] Comment on above: Performed By: #### U CLINT, CMP, LIPID, DBIL, PHOS, MG #### [facility] [address] [address] [address] Brea Causey MAGNESIUMon 01-04-2022 Magnesium [Mass/Vol] 1.4 mg/dL Critically low 1.8-2.4 [facility] Comment on above: Performed By: #### U CLINT, CMP, LIPID, DBIL, PHOS, MG #### [facility] [address] [address] [address] Brea Causey PHOSPHORUSon 01-04-2022 Phosphate [Mass/Vol] 4.4 mg/dL Normal 2.6-4.7 [facility] Comment on above: Performed By: #### U CLINT, CMP, LIPID, DBIL, PHOS, MG #### [facility] [address] [address] [address] Brea Causey PROF 14(COMP METB)on 022 Albumin [Mass/Vol] 3.9 g/dL Normal 3.4-5.0 [facility] Comment on above: Performed By: #### U CLINT, CMP, LIPID, DBIL, PHOS, MG #### [facility] [address] [place] [address] Dr. Brea Causey Albumin/Globulin [Mass ratio] 1.2 {ratio} Normal [facility] Comment on above: Performed By: #### U CLINT, CMP, LIPID, DBIL, PHOS, MG #### [facility] [address] [place] [address] Dr. Brea Causey ALP [Catalytic activity/Vol] 155 U/L Critically high 46-116 [facility] Comment on above: Performed By: #### U CLINT, CMP, LIPID, DBIL, PHOS, MG #### [facility] [address] [place] [address] Dr. Brea Causey ALT [Catalytic activity/Vol] 27 U/L Normal 16-63 [facility] Comment on above: Performed By: #### U CLINT, CMP, LIPID, DBIL, PHOS, MG #### [facility] [address] [place] [address] Dr. Brea Causey Anion gap [Moles/Vol] 14.6 mmol/L Normal [facility] Comment on above: Performed By: #### U CLINT, CMP, LIPID, DBIL, PHOS, MG #### [facility] [address] [place] [address] Dr. Brea Causey AST [Catalytic activity/Vol] 17 U/L Normal 15-37 [facility] Comment on above: Performed By: #### U CLINT, CMP, LIPID, DBIL, PHOS, MG #### [facility] [address] [place] [address] Dr. Brea Causey Bilirubin [Mass/Vol] 0.3 mg/dL Normal 0.2-1.0 [facility] Comment on above: Performed By: #### U CLINT, CMP, LIPID, DBIL, PHOS, MG #### [facility] [address] [place] [address] Dr. Brea Causey Calcium [Mass/Vol] 8.1 mg/dL Critically low 8.5-10.1 [facility] Comment on above: Performed By: #### U CLINT, CMP, LIPID, DBIL, PHOS, MG #### [facility] [address] [address] [address] Brea Causey Chloride [Moles/Vol] 99 mmol/L Normal 98-107 [facility] Comment on above: Performed By: #### U CLINT, CMP, LIPID, DBIL, PHOS, MG #### [facility] [address] [address] [address] Brea Causey CO2 [Moles/Vol] 25.0 mmol/L Normal 21.0-32.0 [facility] Comment on above: Performed By: #### U CLINT, CMP, LIPID, DBIL, PHOS, MG #### [facility] [address] [place] [address] Dr. Brea Causey Creatinine [Mass/Vol] 1.05 mg/dL Normal 0.70-1.30 [facility] Comment on above: Performed By: #### U CLINT, CMP, LIPID, DBIL, PHOS, MG #### [facility] [address] [place] [address] Dr. Brea Causey EGFR-AF MONTENEGRIN >60 Normal >=60 [facility] Comment on above: Performed By: #### U CLINT, CMP, LIPID, DBIL, PHOS, MG #### [facility] [address] [place] [address] Dr. Brea Causey EGFR-NON AF MONTENEGRIN >60 Normal >=60 [facility] Comment on above: Performed By: #### U CLINT, CMP, LIPID, DBIL, PHOS, MG #### [facility] [address] [place] [address] Dr. Brea Causey Globulin (S) [Mass/Vol] 3.2 g/dL Normal [facility] Comment on above: Performed By: #### U CLINT, CMP, LIPID, DBIL, PHOS, MG #### [facility] [address] [place] [address] Dr. Brea Causey Glucose [Mass/Vol] 177 mg/dL Critically high 74-106 [facility] Comment on above: Performed By: #### U CLINT, CMP, LIPID, DBIL, PHOS, MG #### [facility] [address] [place] [address] Dr. Brea Causey Potassium [Moles/Vol] 4.6 mmol/L Normal 3.5-5.1 [facility] Comment on above: Performed By: #### U CLINT, CMP, LIPID, DBIL, PHOS, MG #### [facility] [address] [place] [address] Dr. Brea Causey Protein [Mass/Vol] 7.1 g/dL Normal 6.4-8.2 [facility] Comment on above: Performed By: #### U CLINT, CMP, LIPID, DBIL, PHOS, MG #### [facility] [address] [place] [address] Dr. Brea Causey Sodium [Moles/Vol] 134 mmol/L Critically low 136-145 Th [facility] Comment on above: Performed By: #### U CLINT, CMP, LIPID, DBIL, PHOS, MG #### [facility] [address] [place] [address] Dr. Brea Causey Urea nitrogen [Mass/Vol] 14.0 mg/dL Normal 7.0-18.0 [facility] Comment on above: Performed By: #### U CLINT, CMP, LIPID, DBIL, PHOS, MG #### [facility] [address] [place] [address] Dr. Brea Causey Urea nitrogen/Creatinine [Mass ratio] 13.3 mg/mg Normal [facility] Comment on above: Performed By: #### U CLINT, CMP, LIPID, DBIL, PHOS, MG #### [facility] [address] [place] [address] Dr. Brea Causey URIC ACID SERUMon 01-04-2022 Urate [Mass/Vol] 7.6 mg/dL Critically high 3.5-7.2 [facility] Comment on above: Performed By: #### U CLINT, CMP, LIPID, DBIL, PHOS, MG #### [facility] [address] [place] [address] Dr. Brea Causey BK VIRUS PCR QUANTon 022 BKV DNA QUANT PCR PLASMA Negative Normal Negative [facility] Comment on above: Result Comment: No B K DNA detected. . The linear range of the assay is 22 - 100,000,000 IU/mL. Performed By: #### B KVIRUS #### [facility] [address] [place] [address] Dr. Brea Causey Log10 BKV DNA Plasma Normal [facility] Comment on above: Performed By: #### B KVIRUS #### [facility] [address] [place] [address] Dr. Brea Causey FK506 (TACROLIMUS) WHOLE BLO ODon 12-03-2021 Tacrolimus (FK506), Blood 5.6 ng/mL Normal 2.0-20.0 [facility] Comment on above: Result Comment: Trou gh (immediately following transplant) 15.0 . Trough (steady state, 2 weeks or more after transplant): 3.0 - 8.0 . Performed by LC-MS/MS technology. Performed By: #### U CLINT, CMP, LIPID, DBIL, PHOS, MG #### [facility] [address] [place] [address] Dr. Brea Cause[facility], [facility] Free Testosterone(Direct) 7.5 pg/mL Normal 6.6-18.[address] [facility] Comment on above: Result Comment: Perf ormed at: BN Performed By: #### U CLINT, CMP, LIPID, DBIL, PHOS, MG #### [facility] [address] [place] [address] Dr. Brea Causey Testosterone [Mass/Vol] 467 ng/dL Normal 264-916 [facility] Comment on above: Result Comment: Adul t male reference interval is based on a population of healthy nonobese males (BMI <30) between 19 and 39 years old. daniel Harris.al. JCEM 2017,102;[id number]. PMID: [id number]. Performed at: CB Performed By: #### U CLINT, CMP, LIPID, DBIL, PHOS, MG #### [facility] [address] [place] [address] Dr. Brea Causey BILIRUBIN CONJUGATED (DIRECT )on 11-30-2021 BILI, CONJUGATED 0.2 mg/dL Normal 0.0-0.[address] [facility] Comment on above: Performed By: #### B KVIRUS #### [facility] [address] [place] [address] Dr. Brea Causey CBC AUTO DIFFon 11-30-2021 BASO # 0.0 103/ul Normal 0.0-0.1 [facility] Comment on above: Performed By: #### U CLINT, CMP, LIPID, DBIL, PHOS, MG #### [facility] [address] [place] [address] Dr. Brea Causey Basophils/100 WBC (Bld) 0.6 % Normal 0.2-2.0 [facility] Comment on above: Performed By: #### U CLINT, CMP, LIPID, DBIL, PHOS, MG #### [facility] [address] [place] [address] Dr. Brea Causey EO # 0.2 103/ul Normal 0.0-0.7 [facility] Comment on above: Performed By: #### U CLINT, CMP, LIPID, DBIL, PHOS, MG #### [facility] [address] [place] [address] Dr. Brea Causey Eosinophils/100 WBC (Bld) 2.7 % Normal 0.9-7.0 [facility] Comment on above: Performed By: #### U CLINT, CMP, LIPID, DBIL, PHOS, MG #### [facility] [address] [place] [address] Dr. Brea Causey Erythrocyte distribution width (RBC) [Ratio] 13.0 % Normal 11.0-15.0 [facility] Comment on above: Performed By: #### U CLINT, CMP, LIPID, DBIL, PHOS, MG #### [facility] [address] [place] [address] Dr. Brea Causey Hematocrit (Bld) [Volume fraction] 37.6 % Critically low 42.0-54.0 [facility] Comment on above: Performed By: #### U CLINT, CMP, LIPID, DBIL, PHOS, MG #### [facility] [address] [address] [address] Brea Causey Hemoglobin (Bld) [Mass/Vol] 12.4 g/dL Critically low 14.0-18.0 [facility] Comment on above: Performed By: #### U CLINT, CMP, LIPID, DBIL, PHOS, MG #### [facility] [address] [address] [address] Brea Causey IG # 0.06 10e3/ul Critically high 0.00-0.03 [facility] Comment on above: Performed By: #### U CLINT, CMP, LIPID, DBIL, PHOS, MG #### [facility] [address] [place] [address] Dr. Brea Causey IG % 0.9 % Critically high 0.0-0.5 [facility] Comment on above: Performed By: #### U CLINT, CMP, LIPID, DBIL, PHOS, MG #### [facility] [address] [place] [address] Dr. Brea Causey LYMPH # 1.0 103/ul Critically low 1.2-3.8 [facility] Comment on above: Performed By: #### U CLINT, CMP, LIPID, DBIL, PHOS, MG #### [facility] [address] [place] [address] Dr. Brea Causey Lymphocytes/100 WBC (Bld) 14.6 % Critically low 20.5-60.0 [facility] Comment on above: Performed By: #### U CLINT, CMP, LIPID, DBIL, PHOS, MG #### [facility] [address] [place] [address] Dr. Brea Causey MANUAL DIFF REQ NO Normal [facility] Comment on above: Performed By: #### U CLINT, CMP, LIPID, DBIL, PHOS, MG #### [facility] [address] [place] [address] Dr. Brea Causey MCH (RBC) [Entitic mass] 29.4 pg Normal 25.9-34.0 [facility] Comment on above: Performed By: #### U CLINT, CMP, LIPID, DBIL, PHOS, MG #### [facility] [address] [place] [address] Dr. Brea Causey MCHC (RBC) [Mass/Vol] 33.0 g/dL Normal 29.9-35.2 [facility] Comment on above: Performed By: #### U CLINT, CMP, LIPID, DBIL, PHOS, MG #### [facility] [address] [place] [address] Dr. Brea Causey MCV (RBC) [Entitic vol] 89.1 fL Normal 80.0-94.0 [facility] Comment on above: Performed By: #### U CLINT, CMP, LIPID, DBIL, PHOS, MG #### [facility] [address] [place] [address] Dr. Brea Causey MONO # 0.7 103/ul Normal 0.3-0.8 [facility] Comment on above: Performed By: #### U CLINT, CMP, LIPID, DBIL, PHOS, MG #### [facility] [address] [place] [address] Dr. Brea Causey Monocytes/100 WBC (Bld) 10.0 % Normal 1.7-12.0 [facility] Comment on above: Performed By: #### U CLINT, CMP, LIPID, DBIL, PHOS, MG #### [facility] [address] [place] [address] Dr. Brea Causey NEUT # 4.8 103/ul Normal 1.4-6.5 [facility] Comment on above: Performed By: #### U CLINT, CMP, LIPID, DBIL, PHOS, MG #### [facility] [address] [place] [address] Dr. Brea Causey Neutrophils/100 WBC (Bld) 71.2 % Normal 43.0-75.0 [facility] Comment on above: Performed By: #### U CLINT, CMP, LIPID, DBIL, PHOS, MG #### [facility] [address] [place] [address] Dr. Brea Causey Platelet mean volume (Bld) [Entitic vol] 9.0 fL Critically low 9.5-13.5 [facility] Comment on above: Performed By: #### U CLINT, CMP, LIPID, DBIL, PHOS, MG #### [facility] [address] [address] [address] Brea Causey PLT 280 103/ul Normal 150-450 [facility] Comment on above: Performed By: #### U CLINT, CMP, LIPID, DBIL, PHOS, MG #### [facility] [address] [address] [address] Brea Causey RBC 4.22 106/ul Critically low 4.70-6.10 [facility] Comment on above: Performed By: #### U CLNIT, CMP, LIPID, DBIL, PHOS, MG #### [facility] [address] [place] [address] Dr. Brea Causey WBC 6.7 103/ul Normal 4.0-11.0 [facility] Comment on above: Performed By: #### U CLINT, CMP, LIPID, DBIL, PHOS, MG #### [facility] [address] [place] [address] Dr. Brea Causey GLYCOHEMOGLOBIN A1Con 2021 ADA RECOMMENDATION SEE BELOW Normal [facility] Comment on above: Result Comment: ADA RECOMMENDED LIMIT 4.0 - 6.0 ADA THERAPEUTIC TARGET < 7.0 ACTION SUGGESTED > 7.0 Performed By: #### B KVIRUS #### [facility] [address] [place] [address] Dr. Brea Causey Glucose [Mass/Vol] 171 mg/dL Normal [facility] Comment on above: Performed By: #### B KVIRUS #### [facility] [address] [address] [address] Brea Causey HbA1c (Bld) [Mass fraction] 7.6 % Critically high 4.5-6.2 [facility] Comment on above: Performed By: #### B KVIRUS #### [facility] [address] [place] [address] Dr. Brea Causey LIPID PROFILEon 11-30-2021 CHOL-HDL RATIO NORM SEE BELOW Normal [facility] Comment on above: Result Comment: 3.3 - 4.4 LOW RISK 4.4 - 7.1 AVERAGE RISK 7.1 - 11.0 MODERATE RISK >11.0 HIGH RISK Performed By: #### C BC #### [facility] [address] [address] [address] Brea Causey Cholesterol [Mass/Vol] 75 mg/dL Normal <=200 [facility] Comment on above: Performed By: #### C BC #### [facility] [address] [address] [address] Brea Causey Cholesterol in HDL [Mass/Vol] 41 mg/dL Normal 40-60 [facility] Comment on above: Performed By: #### C BC #### [facility] [address] [place] [address] Dr. Brea Causey Cholesterol in LDL [Mass/Vol] 18.6 mg/dL Normal [facility] Comment on above: Performed By: #### C BC #### [facility] [address] [address] [address] Brea Causey Cholesterol.total/Chol esterol in HDL [Mass ratio] 1.8 {ratio} Normal [facility] Comment on above: Performed By: #### C BC #### [facility] [address] [place] [address] Dr. Brea Causey HDL NORMAL > or = 60 mg/dl - LO W CARDIOVASCULAR RISK <40 mg/dl - HIGH CARDIOVASCULAR RISK Normal [facility] Comment on above: Performed By: #### C BC #### [facility] [address] [address] [address] Brea Causey LDL CALC NORMAL SEE BELOW Normal [facility] Comment on above: Result Comment: <100 mg/dl OPTIMAL 100 - 129 mg/dl NEAR OR ABOVE OPTIMAL 130 - 159 mg/dl BORDERLINE HIGH 160 - 189 mg/dl HIGH >190 mg/dl VERY HIGH Performed By: #### C BC #### [facility] [address] [place] [address] Dr. Brea Causey Triglyceride [Mass/Vol] 77 mg/dL Normal <=150 [facility] Comment on above: Performed By: #### C BC #### [facility] [address] [place] [address] Dr. Brea Causey VLDL CALC 15.4 mg/dL Normal [facility] Comment on above: Performed By: #### C BC #### [facility] [address] [place] [address] Dr. Brea Causey MAGNESIUMon 11-30-2021 Magnesium [Mass/Vol] 1.4 mg/dL Critically low 1.8-2.4 [facility] Comment on above: Performed By: #### B KVIRUS #### [facility] [address] [place] [address] Dr. Brea Causey PHOSPHORUSon 11-30-2021 Phosphate [Mass/Vol] 4.1 mg/dL Normal 2.6-4.7 [facility] Comment on above: Performed By: #### C BC #### [facility] [address] [place] [address] Dr. Brea Causey PROF 14(COMP METB)on 022 Albumin [Mass/Vol] 4.2 g/dL Normal 3.4-5.0 [facility] Comment on above: Performed By: #### C BC #### [facility] [address] [place] [address] Dr. Brea Causey Albumin/Globulin [Mass ratio] 1.3 {ratio} Normal [facility] Comment on above: Performed By: #### C BC #### [facility] [address] [place] [address] Dr. Brea Causey ALP [Catalytic activity/Vol] 148 U/L Critically high 46-116 [facility] Comment on above: Performed By: #### C BC #### [facility] [address] [place] [address] Dr. Brea Causey ALT [Catalytic activity/Vol] 36 U/L Normal 16-63 [facility] Comment on above: Performed By: #### C BC #### [facility] [address] [place] [address] Dr. Brea Causey Anion gap [Moles/Vol] 14.7 mmol/L Normal [facility] Comment on above: Performed By: #### C BC #### [facility] [address] [address] [address] Brea Causey AST [Catalytic activity/Vol] 21 U/L Normal 15-37 [facility] Comment on above: Performed By: #### C BC #### [facility] [address] [address] [address] Brea Causey Bilirubin [Mass/Vol] 0.4 mg/dL Normal 0.2-1.0 [facility] Comment on above: Performed By: #### C BC #### [facility] [address] [address] [address] Brea Causey Calcium [Mass/Vol] 8.3 mg/dL Critically low 8.5-10.1 [facility] Comment on above: Performed By: #### C BC #### [facility] [address] [address] [address] Brea Causey Chloride [Moles/Vol] 98 mmol/L Normal 98-107 [facility] Comment on above: Performed By: #### C BC #### [facility] [address] [address] [address] Brea Causey CO2 [Moles/Vol] 27.2 mmol/L Normal 21.0-32.0 [facility] Comment on above: Performed By: #### C BC #### [facility] [address] [address] [address] Brea Causey Creatinine [Mass/Vol] 1.10 mg/dL Normal 0.70-1.30 [facility] Comment on above: Performed By: #### C BC #### [facility] [address] [address] [address] Brea Causey EGFR-AF MONTENEGRIN >60 Normal >=[address] [facility] Comment on above: Performed By: #### C BC #### [facility] [id number] Brea Causey EGFR-NON AF MONTENEGRIN >60 Normal >=60 [facility] Comment on above: Performed By: #### C BC #### [facility] [address] [address] [address] Brea Causey Globulin (S) [Mass/Vol] 3.2 g/dL Normal [facility] Comment on above: Performed By: #### C BC #### [facility] [address] [place] [address] Dr. Brea Causey Glucose [Mass/Vol] 173 mg/dL Critically high 74-106 T [facility] Comment on above: Performed By: #### C BC #### [facility] [address] [place] [address] Dr. Brea Causey Potassium [Moles/Vol] 4.9 mmol/L Normal 3.5-5.1 [facility] Comment on above: Performed By: #### C BC #### [facility] [address] [place] [address] Dr. Brea Causey Protein [Mass/Vol] 7.4 g/dL Normal 6.4-8.2 [facility] Comment on above: Performed By: #### C BC #### [facility] [address] [place] [address] Dr. Brea Causey Sodium [Moles/Vol] 135 mmol/L Critically low 136-145 Th [facility] Comment on above: Performed By: #### C BC #### [facility] [address] [place] [address] Dr. Brea Causey Urea nitrogen [Mass/Vol] 14.0 mg/dL Normal 7.0-18.0 [facility] Comment on above: Performed By: #### C BC #### [facility] [address] [place] [address] Dr. Brea Causey Urea nitrogen/Creatinine [Mass ratio] 12.7 mg/mg Normal [facility] Comment on above: Performed By: #### C BC #### [facility] [address] [place] [address] Dr. Brea Causey URIC ACID SERUMon 11-30-2021 Urate [Mass/Vol] 7.8 mg/dL Critically high 3.5-7.2 [facility] Comment on above: Performed By: #### C BC #### [facility] [address] [place] [address] Dr. Brea Causey BNPon 11-14-2021 Natriuretic peptide B (Bld) [Mass/Vol] 350.0 pg/mL Normal <=900.0 [facility] Comment on above: Performed By: #### C BC #### [facility] [address] [place] [address] Dr. Brea Causey CBC AUTO DIFFon 11-14-2021 BASO # 0.0 103/ul Normal 0.0-0.1 [facility] Comment on above: Performed By: #### C BC #### [facility] [address] [place] [address] Dr. Brea Causey Basophils/100 WBC (Bld) 0.1 % Critically low 0.2-2.0 [facility] Comment on above: Performed By: #### C BC #### [facility] [address] [place] [address] Dr. Brea Causey EO # 0.2 103/ul Normal 0.0-0.7 [facility] Comment on above: Performed By: #### C BC #### [facility] [address] [place] [address] Dr. Brea Causey Eosinophils/100 WBC (Bld) 1.4 % Normal 0.9-7.0 [facility] Comment on above: Performed By: #### C BC #### [facility] [address] [place] [address] Dr. Brea Causey Erythrocyte distribution width (RBC) [Ratio] 13.1 % Normal 11.0-15.0 [facility] Comment on above: Performed By: #### C BC #### [facility] [address] [place] [address] Dr. Brea Causey Hematocrit (Bld) [Volume fraction] 39.4 % Critically low 42.0-54.0 [facility] Comment on above: Performed By: #### C BC #### [facility] [address] [place] [address] Dr. Brea Causey Hemoglobin (Bld) [Mass/Vol] 13.2 g/dL Critically low 14.0-18.0 [facility] Comment on above: Performed By: #### C BC #### [facility] [address] [address] [address] Brea Causey IG # 0.11 10e3/ul Critically high 0.00-0.03 [facility] Comment on above: Performed By: #### C BC #### [facility] [address] [address] [address] Brea Causey IG % 0.6 % Critically high 0.0-0.5 [facility] Comment on above: Performed By: #### C BC #### [facility] [address] [place] [address] Dr. Brea Causey LYMPH # 1.1 103/ul Critically low 1.2-3.8 [facility] Comment on above: Performed By: #### C BC #### [facility] [address] [place] [address] Dr. Brea Causey Lymphocytes/100 WBC (Bld) 6.7 % Critically low 20.5-60.0 [facility] Comment on above: Performed By: #### C BC #### [facility] [address] [place] [address] Dr. Brea Causey MANUAL DIFF REQ NO Normal [facility] Comment on above: Performed By: #### C BC #### [facility] [address] [place] [address] Dr. Brea Causey MCH (RBC) [Entitic mass] 29.5 pg Normal 25.9-34.0 [facility] Comment on above: Performed By: #### C BC #### [facility] [address] [place] [address] Dr. Brea Causey MCHC (RBC) [Mass/Vol] 33.5 g/dL Normal 29.9-35.2 [facility] Comment on above: Performed By: #### C BC #### [facility] [address] [place] [address] Dr. Brea Causey MCV (RBC) [Entitic vol] 88.1 fL Normal 80.0-94.0 [facility] Comment on above: Performed By: #### C BC #### [facility] [address] [address] [address] Brea Causey MONO # 1.5 103/ul Critically high 0.3-0.8 [facility] Comment on above: Performed By: #### C BC #### [facility] [address] [address] [address] Brea Causey Monocytes/100 WBC (Bld) 8.6 % Normal 1.7-12.0 [facility] Comment on above: Performed By: #### C BC #### [facility] [address] [address] [address] Brea Causey NEUT # 14.0 103/ul Critically high 1.4-6.5 [facility] Comment on above: Performed By: #### C BC #### [facility] [address] [place] [address] Dr. Brea Causey Neutrophils/100 WBC (Bld) 82.6 % Critically high 43.0-75.0 [facility] Comment on above: Performed By: #### C BC #### [facility] [address] [address] [address] Brea Causey Platelet mean volume (Bld) [Entitic vol] 9.5 fL Normal 9.5-13.5 [facility] Comment on above: Performed By: #### C BC #### [facility] [address] [address] [address] Brea Causey PLT 303 103/ul Normal 150-450 [facility] Comment on above: Performed By: #### C BC #### [facility] [address] [address] [address] Brea Causey RBC 4.47 106/ul Critically low 4.70-6.10 [facility] Comment on above: Performed By: #### C BC #### [facility] [address] [address] [address] Brea Causey WBC 17.0 103/ul Critically high 4.0-11.[address] [facility] Comment on above: Performed By: #### C BC #### [facility] [address] [place] [address] Dr. Brea Causey [facility]19 [facility]on SARS-CoV-2 (COVID-19) RNA ISI+probe Ql (Unsp spec) Not detected Normal NOT DETECTED The [facility] Comment on above: Result Comment: When [...] for this test is supported by the [place] of Health and Human Service's declaration that [...] CMP, LIPID, DBIL, PHOS, MG #### [facility] [address] [place] [address] Dr. Brea Causey ER URINE PROFILEon 2 Bilirubin Ql (U) Negative Normal NEGATIVE [facility] Comment on above: Performed By: #### U CLINT, CMP, LIPID, DBIL, PHOS, MG #### [facility] [address] [place] [address] Dr. Brea Causey Clarity (U) CLEAR Normal CLEAR [facility] Comment on above: Performed By: #### U CLINT, CMP, LIPID, DBIL, PHOS, MG #### [facility] [address] [place] [address] Dr. Brea Causey Color (U) YELLOW Normal YELLOW [facility] Comment on above: Performed By: #### U CLINT, CMP, LIPID, DBIL, PHOS, MG #### [facility] [address] [address] [address] Brea GORDON A micrscopic examination will be performed if indicated. Normal [facility] Comment on above: Performed By: #### U CLINT, CMP, LIPID, DBIL, PHOS, MG #### [facility] [address] [address] [address] Brea Causey Glucose Ql (U) Negative Normal NEGATIVE The [facility] Comment on above: Performed By: #### U CLINT, CMP, LIPID, DBIL, PHOS, MG #### [facility] [address] [address] [address] Brea Causey Hemoglobin Ql (U) Negative Normal NEGATIVE [facility] Comment on above: Performed By: #### U CLINT, CMP, LIPID, DBIL, PHOS, MG #### [facility] [address] [address] [address] Brea Causey Ketones Ql (U) Negative Normal NEGATIVE The [facility] Comment on above: Performed By: #### U CLINT, CMP, LIPID, DBIL, PHOS, MG #### [facility] [address] [address] [address] Brea Causey LEUKOCYTES Negative Normal NEGATIVE [facility] Comment on above: Performed By: #### U CLINT, CMP, LIPID, DBIL, PHOS, MG #### [facility] [address] [address] [address] Brea Causey Nitrite Ql (U) Negative Normal NEGATIVE The [facility] Comment on above: Performed By: #### U CLINT, CMP, LIPID, DBIL, PHOS, MG #### [facility] [address] [address] [address] Brea Causey pH (U) 6.0 [pH] Normal 5-9 [facility] Comment on above: Performed By: #### U CLINT, CMP, LIPID, DBIL, PHOS, MG #### [facility] [address] [address] [address] Brea Causey SPEC GRAVITY <=1.005 Abnormal 1.005-<=1.025 [facility] Comment on above: Performed By: #### U CLINT, CMP, LIPID, DBIL, PHOS, MG #### [facility] [address] [address] [address] Brea Causey UA PROTEIN Negative Normal NEGATIVE/ TRACE [facility] Comment on above: Performed By: #### U CLINT, CMP, LIPID, DBIL, PHOS, MG #### [facility] [address] [address] [address] Brea Causey UR MICRO IND NOT INDICATED Normal [facility] Comment on above: Performed By: #### U CLINT, CMP, LIPID, DBIL, PHOS, MG #### [facility] [address] [address] [address] Brea Causey Urobilinogen Qn (U) 0.2 {Sabine'U}/dL Normal 0.2 - 1. 0 [facility] Comment on above: Performed By: #### U CLINT, CMP, LIPID, DBIL, PHOS, MG #### [facility] [address] [address] [address] Brea Causey GI PANEL (PCR)on 11-14-2021 Adenovirus F 40/41 Not detected Normal NOT DETECTED [facility] Comment on above: Performed By: #### U CLINT, CMP, LIPID, DBIL, PHOS, MG #### [facility] [address] [place] [address] Dr. Brea Causey Astrovirus Not detected Normal NOT DETECTED The [facility] Comment on above: Performed By: #### U CLINT, CMP, LIPID, DBIL, PHOS, MG #### [facility] [address] [place] [address] Dr. Brea Causey C. Diff toxin A/B Not detected Normal NOT DETECTED [facility] Comment on above: Performed By: #### U CLINT, CMP, LIPID, DBIL, PHOS, MG #### [facility] [address] [place] [address] Dr. Brea Causey Campylobacter Not detected Normal NOT DETECTED [facility] Comment on above: Performed By: #### U CLINT, CMP, LIPID, DBIL, PHOS, MG #### [facility] [address] [address] [address] Brea Causey Cryptosporidium Not detected Normal NOT DETECTED The [facility] Comment on above: Performed By: #### U CLINT, CMP, LIPID, DBIL, PHOS, MG #### [facility] [address] [address] [address] Brea Causey Cyclos. Cayetanensis Not detected Normal NOT DETECTED [facility] Comment on above: Performed By: #### U CLINT, CMP, LIPID, DBIL, PHOS, MG #### [facility] [address] [place] [address] Dr. Brea Causey E. Coli O157 Not Applicable Normal Not Applicable [facility] Comment on above: Performed By: #### U CLINT, CMP, LIPID, DBIL, PHOS, MG #### [facility] [address] [place] [address] Dr. Brea Causey E. histolytica Not detected Normal NOT DETECTED [facility] Comment on above: Performed By: #### U CLINT, CMP, LIPID, DBIL, PHOS, MG #### [facility] [address] [place] [address] Dr. Brea Causey EAEC Not detected Normal NOT DETECTED The [facility] Comment on above: Performed By: #### U CLINT, CMP, LIPID, DBIL, PHOS, MG #### [facility] [address] [place] [address] Dr. Brea Causey EIEC Not detected Normal NOT DETECTED [facility] Comment on above: Performed By: #### U CLINT, CMP, LIPID, DBIL, PHOS, MG #### [facility] [address] [place] [address] Dr. Brea Causey EPEC Not detected Normal NOT DETECTED [facility] Comment on above: Performed By: #### U CLINT, CMP, LIPID, DBIL, PHOS, MG #### [facility] [address] [place] [address] Dr. Brea Causey ETEC Not detected Normal NOT DETECTED The [facility] Comment on above: Performed By: #### U CLINT, CMP, LIPID, DBIL, PHOS, MG #### [facility] [address] [address] [address] Brea Colon Not detected Normal NOT DETECTED The [facility] Comment on above: Performed By: #### U CLINT, CMP, LIPID, DBIL, PHOS, MG #### [facility] [address] [address] [address] Brea LEZAMA CONTROLS PASSED [facility] Comment on above: Performed By: #### U CLINT, CMP, LIPID, DBIL, PHOS, MG #### [facility] [address] [address] [address] Brea HERNANDEZ HEADER GI PANEL BACTERIA Normal [facility] Comment on above: Performed By: #### U CLINT, CMP, LIPID, DBIL, PHOS, MG #### [facility] [address] [address] [address] Brea PINTO ECOLI GI PANEL DIARRHEAGENIC E.COLI / SHIGELLA Normal [facility] Comment on above: Performed By: #### U CLINT, CMP, LIPID, DBIL, PHOS, MG #### [facility] [address] [address] [address] Brea PINTO INFO SEE BELOW [facility] Comment on above: Result Comment: EAEC - Enteroaggregative E. Coli EPEC- Enteropathogenic E. Coli ETEC- Enterotoxigenic E. Coli lt/st STEC- Shigella-like toxin-producing E. Coli stx1/stx2 EIEC- Shigella/Enteroinvasive E. Coli Performed By: #### U CLINT, CMP, LIPID, DBIL, PHOS, MG #### [facility] [address] [address] [address] Brea PINTO PARASITES GI PANEL PARASITES Normal [facility] Comment on above: Performed By: #### U CLINT, CMP, LIPID, DBIL, PHOS, MG #### [facility] [address] [address] [address] Brea PINTO VIRUS GI PANEL VIRUSES Normal [facility] Comment on above: Performed By: #### U CLINT, CMP, LIPID, DBIL, PHOS, MG #### [facility] [address] [address] [address] Brea Causey Norovirus GI/GII Not detected Normal NOT DETECTED [facility] Comment on above: Performed By: #### U CLINT, CMP, LIPID, DBIL, PHOS, MG #### [facility] [address] [address] [address] Brea Causey P. Shigelloides Not detected Normal NOT DETECTED The [facility] Comment on above: Performed By: #### U CLINT, CMP, LIPID, DBIL, PHOS, MG #### [facility] [address] [address] [address] Brea Causey Rotavirus A Not detected Normal NOT DETECTED [facility] Comment on above: Performed By: #### U CLINT, CMP, LIPID, DBIL, PHOS, MG #### [facility] [address] [address] [address] Brea Causey Salmonella Not detected Normal NOT DETECTED [facility] Comment on above: Performed By: #### U CLINT, CMP, LIPID, DBIL, PHOS, MG #### [facility] [address] [place] [address] Dr. Brea Causey Sapovirus Not detected Normal NOT DETECTED The [facility] Comment on above: Performed By: #### U CLINT, CMP, LIPID, DBIL, PHOS, MG #### [facility] [address] [address] [address] Brea Causey STEC Not detected Normal NOT DETECTED The [facility] Comment on above: Performed By: #### U CLINT, CMP, LIPID, DBIL, PHOS, MG #### [facility] [address] [address] [address] Brea Causey Vibrio Not detected Normal NOT DETECTED The [facility] Comment on above: Performed By: #### U CLINT, CMP, LIPID, DBIL, PHOS, MG #### [facility] [address] [address] [address] Brea Causey Vibrio Cholera Not detected Normal NOT DETECTED [facility] Comment on above: Performed By: #### U CLINT, CMP, LIPID, DBIL, PHOS, MG #### [facility] [address] [place] [address] Dr. Brea Phelps Enterocolitica Not detected Normal NOT DETECTED [facility] Comment on above: Performed By: #### U CLINT, CMP, LIPID, DBIL, PHOS, MG #### [facility] [address] [place] [address] Dr. Brea Causey PROF 14(COMP METB)on 022 Albumin [Mass/Vol] 4.0 g/dL Normal 3.4-5.0 [facility] Comment on above: Performed By: #### C BC #### [facility] [address] [place] [address] Dr. Brea Causey Albumin/Globulin [Mass ratio] 1.3 {ratio} Normal [facility] Comment on above: Performed By: #### C BC #### [facility] [address] [place] [address] Dr. Brea Causey ALP [Catalytic activity/Vol] 142 U/L Critically high 46-116 [facility] Comment on above: Performed By: #### C BC #### [facility] [address] [place] [address] Dr. Brea Causey ALT [Catalytic activity/Vol] 39 U/L Normal 16-63 [facility] Comment on above: Performed By: #### C BC #### [facility] [address] [place] [address] Dr. Brea Causey Anion gap [Moles/Vol] 13.6 mmol/L Normal [facility] Comment on above: Performed By: #### C BC #### [facility] [address] [place] [address] Dr. Brea Causey AST [Catalytic activity/Vol] 23 U/L Normal 15-37 [facility] Comment on above: Performed By: #### C BC #### [facility] [address] [place] [address] Dr. Brea Causey Bilirubin [Mass/Vol] 0.4 mg/dL Normal 0.2-1.0 [facility] Comment on above: Performed By: #### C BC #### [facility] [address] [address] [address] Brea Causey Calcium [Mass/Vol] 8.4 mg/dL Critically low 8.5-10.1 Th e [facility] Comment on above: Performed By: #### C BC #### [facility] [address] [address] [address] Brea Causey Chloride [Moles/Vol] 97 mmol/L Critically low 98-107 [facility] Comment on above: Performed By: #### C BC #### [facility] [address] [place] [address] Dr. Brea Causey CO2 [Moles/Vol] 26.1 mmol/L Normal 21.0-32.0 [facility] Comment on above: Performed By: #### C BC #### [facility] [address] [place] [address] Dr. Brea Causey Creatinine [Mass/Vol] 1.21 mg/dL Normal 0.70-1.30 [facility] Comment on above: Performed By: #### C BC #### [facility] [address] [place] [address] Dr. Brea Causey EGFR-AF MONTENEGRIN >60 Normal >=60 [facility] Comment on above: Performed By: #### C BC #### [facility] [address] [place] [address] Dr. Brea Causey EGFR-NON AF MONTENEGRIN 59 mL/min/1.73m2 Critically low >=60 [facility] Comment on above: Performed By: #### C BC #### [facility] [address] [place] [address] Dr. Brea Causey Globulin (S) [Mass/Vol] 3.2 g/dL Normal [facility] Comment on above: Performed By: #### C BC #### [facility] [address] [place] [address] Dr. Brea Causey Glucose [Mass/Vol] 227 mg/dL Critically high 74-106 T [facility] Comment on above: Performed By: #### C BC #### [facility] [address] [address] [address] Brea Causey Potassium [Moles/Vol] 4.7 mmol/L Normal 3.5-5.1 [facility] Comment on above: Performed By: #### C BC #### [facility] [address] [address] [address] Brea Causey Protein [Mass/Vol] 7.2 g/dL Normal 6.4-8.2 [facility] Comment on above: Performed By: #### C BC #### [facility] [address] [address] [address] Brea Causey Sodium [Moles/Vol] 132 mmol/L Critically low 136-145 Th [facility] Comment on above: Performed By: #### C BC #### [facility] [address] [address] [address] Brea Causey Urea nitrogen [Mass/Vol] 12.0 mg/dL Normal 7.0-18.0 [facility] Comment on above: Performed By: #### C BC #### [facility] [address] [address] [address] Brea Causey Urea nitrogen/Creatinine [Mass ratio] 9.9 mg/mg Normal [facility] Comment on above: Performed By: #### C BC #### [facility] [address] [address] [address] Brea Causey CBC W/DIFFon 10-31-2021 ABS IMM GRANS 0.1 10*3/uL Normal 0.0-0.2 [facility] Comment on above: Performed By: #### 4 [id number], [id number], [id number], [id number], [id number], [id number] #### [facility] [address] [place] [address], [facility] ABS NEUTROPHILS 5.9 10*3/uL Normal 1.6-7.6 [facility] Comment on above: Performed By: #### 4 [id number], [id number], [id number], [id number], 17042, [id number] #### [facility] [address] [place] [address], [facility] Basophils (Bld) [#/Vol] 0.0 10*3/uL Normal 0.0-0.2 [facility] Comment on above: Performed By: #### 4 [id number], [id number], 99792, 70871, [id number], [id number] #### [facility] [address] [place] [id number], [facility] Basophils/100 WBC (Bld) 0.3 % Normal 0.0-1.0 [facility] Comment on above: Performed By: #### 4 5506, 80634, 66335, 76248, 33150, 45511 #### [facility] [address] [place] [address], [facility] Eosinophils (Bld) [#/Vol] 0.2 10*3/uL Normal 0.0-0.5 [facility] Comment on above: Performed By: #### 4 5506, 08803, 76073, 42772, 35137, 41093 #### [facility] [address] [place] [address], [facility] Eosinophils/100 WBC (Bld) 2.3 % Normal 0.0-6.0 [facility] Comment on above: Performed By: #### 4 5506, 96523, 62405, 16754, 85786, 73659 #### [facility] [address] [place] [address], [facility] Erythrocyte distribution width (RBC) [Ratio] 13.4 % Normal 11.5-15.0 [facility] Comment on above: Performed By: #### 4 5506, 10136, 50434, 30228, 56880, 61106 #### [facility] [address] [place] [address], [facility] Hematocrit (Bld) [Volume fraction] 36.1 % Low 39.0-50.0 [facility] Comment on above: Performed By: #### 4 5506, 34802, 68648, 46369, 43357, 22943 #### [facility] [address] [facility] Hemoglobin (Bld) [Mass/Vol] 11.9 g/dL Low 13.0-17.0 [facility] Comment on above: Performed By: #### 4 5506, 19310, 24788, 30706, 75229, 79206 #### [facility] [address] [facility]. [address] IMMATURE GRANS 0.7 % Normal 0.0-1.0 [facility] Comment on above: Performed By: #### 4 5506, 90319, 61787, 47214, 61363, 90072 #### [facility] [address] Lymphocytes (Bld) [#/Vol] 0.9 10*3/uL Low 1.2-4.0 [facility] Comment on above: Performed By: #### 4 5506, 46461, 74096, 88584, 80876, 47080 #### [facility] [address] Lymphocytes/100 WBC (Bld) 12.1 % Low 20.0-45.0 [facility] Comment on above: Performed By: #### 4 5506, 77883, 63807, 34336, 30135, 09620 #### [facility] [address] [facility]. [address] MCH (RBC) [Entitic mass] 29.3 pg Normal 27.0-33.0 [facility] Comment on above: Performed By: #### 4 5506, 24230, 54189, 78760, 49375, 35215 #### [facility] [address] [facility] [place] [address], [facility] MCHC (RBC) [Mass/Vol] 33.0 g/dL Normal 32.0-35.0 [facility] Comment on above: Performed By: #### 4 5506, 16544, 13291, 80430, 58745, 39107 #### [facility] [address] [facility] [address] MCV (RBC) [Entitic vol] 88.9 fL Normal 82.0-98.0 [facility] Comment on above: Performed By: #### 4 5506, 91134, 57647, 08692, 20884, 97560 #### [facility] [address] Monocytes (Bld) [#/Vol] 0.6 10*3/uL Normal 0.1-1.0 [facility] Comment on above: Performed By: #### 4 5506, 50189, 64315, 37417, 46209, 90733 #### [facility] [address] [facility]. [address] MONOS 8.3 % Normal 5.0-12.0 [facility] Comment on above: Performed By: #### 4 5506, 54680, 49609, 87812, 77059, 33823 #### [facility] [address] [facility]. [address] Neutrophils/100 WBC (Bld) 76.3 % High 40.0-72.0 [facility] Comment on above: Performed By: #### 4 5506, 40506, 55271, 29262, 21126, 57059 #### [facility] [address] [facility]. [address] Nucleated RBC/100 WBC (Bld) [Ratio] 0 % Normal 0-0 [facility] Comment on above: Performed By: #### 4 5506, 01103, 20473, 72006, 19196, 22760 #### [facility] [address] [place] [address], [facility] PLAT CNT 260 10*3/uL Normal 150-400 [facility] Comment on above: Performed By: #### 4 5506, 53606, 72339, 26381, 82526, 36052 #### [facility] [address] [place] [address], [facility] RBC (Bld) [#/Vol] 4.06 10*6/uL Low 4.20-5.70 [facility] Comment on above: Performed By: #### 4 5506, 55604, 50680, 73455, 25030, 64099 #### [facility] [address] [place] [address], [facility] WBC (Bld) [#/Vol] 7.68 10*3/uL Normal 4.00-10.60 [facility] Comment on above: Performed By: #### 4 5506, 32477, 01655, 78042, 26940, 62799 #### [facility] [address] [place] [address], [facility] COMP METABOLIC PANELon 10-31 Albumin [Mass/Vol] 4.4 g/dL Normal 3.5-5.7 [facility] Comment on above: Performed By: #### 4 5506, 11663, 70661, 46714, 72116, 11985 #### [facility] [address] [place] [address], [facility] ALKALINE PHOSPH 132 IU/L High 34-104 [facility] Comment on above: Performed By: #### 4 5506, 22876, 96189, 57787, 31729, 46522 #### [facility] [address] [place] [address], [place] ALT [Catalytic activity/Vol] 26 U/L Normal 7-52 [facility] Comment on above: Performed By: #### 4 5506, 04981, 11963, 30900, 56762, 12237 #### [facility] [address] [place] [address], [place] AST [Catalytic activity/Vol] 17 U/L Normal 13-39 [facility] Comment on above: Performed By: #### 4 5506, 99500, 56076, 68899, 69629, 70508 #### [facility] [address] [place] [address], [place] Bilirubin [Mass/Vol] 0.4 mg/dL Normal 0.3-1.0 [facility] Comment on above: Performed By: #### 4 5506, 89863, 33135, 84700, 85782, 04006 #### [facility] [address] [place] [address], [place] Calcium [Mass/Vol] 8.6 mg/dL Normal 8.6-10.3 [facility] Comment on above: Performed By: #### 4 5506, 78114, 58704, 77144, 05495, 61232 #### [facility] [address] [place] [address], [place] Chloride [Moles/Vol] 97 mmol/L Low 98-107 [facility] Comment on above: Performed By: #### 4 5506, 84427, 39879, 19315, 94844, 41259 #### [facility] [address] [place] [address], [place] CO2 [Moles/Vol] 26 mmol/L Normal 21-31 [facility] Comment on above: Performed By: #### 4 5506, 49631, 14322, 43531, 84179, 96050 #### [facility] [address] [place] [address], [place] Creatinine [Mass/Vol] 1.04 mg/dL Normal 0.70-1.30 [facility] Comment on above: Performed By: #### 4 5506, 16977, 65735, 51460, 99721, 38692 #### [facility] [address] [place] [address], [place] GFR/1.73 sq M.predicted among blacks MDRD (S/P/Bld) [Vol rate/Area] mL/min/{1.73_m2} Normal >60 [facility] Comment on above: Performed By: #### 4 5506, 89692, 32686, 87627, 11492, 90384 #### [facility] [address] [place] [address], [place] GFR/1.73 sq M.predicted among non-blacks MDRD (S/P/Bld) [Vol rate/Area] mL/min/{1.73_m2} Normal >60 [facility] Comment on above: Performed By: #### 4 5506, 90059, 89187, 99140, 57644, 35750 #### [facility] [address] [place] [address], [place] Glucose [Mass/Vol] 158 mg/dL High 70-100 [facility] Comment on above: Performed By: #### 4 5506, 90356, 48230, 59631, 97653, 88175 #### [facility] [address] [place] [address], [place] Potassium [Moles/Vol] 4.4 mmol/L Normal 3.5-5.1 [facility] Comment on above: Performed By: #### 4 5506, 00251, 73294, 97778, 49146, 13914 #### [facility] [address] [place] [address], [place] Protein [Mass/Vol] 6.6 g/dL Normal 6.0-8.3 [facility] Comment on above: Performed By: #### 4 5506, 47582, 54824, 39369, 54008, 86913 #### [facility] [address] [place] [address], [place] Sodium [Moles/Vol] 131 mmol/L Low 136-145 [facility] Comment on above: Performed By: #### 4 5506, 41831, 45309, 12576, 72572, 29330 #### [facility] [address] [place] [address], [facility] Urea nitrogen [Mass/Vol] 15 mg/dL Normal 7-25 [facility] Comment on above: Performed By: #### 4 5506, 31581, 90201, 88943, 07906, 72960 #### [facility] [address] [place] [address], [facility] DIRECT BILIon 10-31-2021 Bilirubin.direct [Mass/Vol] 0.1 mg/dL Normal 0.0-0.2 [facility] Comment on above: Performed By: #### 4 5506, 62581, 26627, 95883, 47775, 98984 #### [facility] [address] [place] [address], [facility] LIPID PROFILEon 10-31-2021 Cholesterol [Mass/Vol] 70 mg/dL Low 120-200 Th e [facility] Comment on above: Result Comment: CHOL ESTEROL REFERENCE RANGE: 20 YEARS AND OLDER CARDIOVASCULAR RISK Less than 200 mg/dl Low Risk 200 to 239 mg/dl Borderline Risk 240 mg/dl and greater High Risk Performed By: #### 4 5506, 14561, 45141, 63650, 27034, 30390 #### [facility] [address] [place] [address], [place] Cholesterol in HDL [Mass/Vol] 35 mg/dL Normal 23-92 [facility] Comment on above: Result Comment: Slig ht variation in normal range could be due to gender and/or age. HDL CHOLESTEROL REFERENCE RANGE: 20 years and older Cardiovascular Risk > or =60 mg/dL Desirable 40 TO 59 mg/dL Low Risk <40 mg/dL High Risk Performed By: #### 4 5506, 57625, 37692, 74815, 11341, 77118 #### [facility] [address] [place] [address], [place] Cholesterol in LDL [Mass/Vol] 20 mg/dL Normal 0-130 [facility] Comment on above: Result Comment: LDL IS A CALCULATION LDL IS ONLY VALID IF THE TRIG IS LESS THAN 400. Performed By: #### 4 5506, 39637, 38774, 79967, 15526, 86953 #### [facility] [address] Cholesterol.total/Chol esterol in HDL [Mass ratio] 2.0 {ratio} Normal .0-4.5 [facility] Comment on above: Performed By: #### 4 5506, 83623, 30445, 79943, 72494, 96770 #### [facility] [address] NON-HDL CHOLESTEROL 35 mg/dL Normal [facility] Comment on above: Performed By: #### 4 5506, 03964, 49711, 01694, 99862, 58817 #### [facility] [address] [facility] Triglyceride [Mass/Vol] 73 mg/dL Normal 40-149 [facility] Comment on above: Result Comment: TRIG LYCERIDE REFERENCE RANGE: 20 YEARS AND OLDER CARDIOVASCULAR RISK LESS THAN 150 mg/dl LOW RISK 150 TO 199 mg/dl BORDERLINE RISK 200 mg/dl AND GREATER HIGH RISK Performed By: #### 4 5506, 77543, 91627, 23139, 50268, 74133 #### [facility] [address] [place] [address], [facility] VLDL CHOL 15 mg/dL Normal 0-40 [facility] Comment on above: Performed By: #### 4 5506, 41773, 27381, 65782, 61209, 53181 #### [facility] [address] [facility] [place] [address], [facility] MAGNESIUM BLOODon 10-31-2021 Magnesium [Mass/Vol] 1.1 mg/dL Critically low 1.9-2.7 [facility] Comment on above: Performed By: #### 4 5506, 30984, 78265, 61033, 63751, 59292 #### [facility] [address] [facility] [place] [address], [facility] PHOSPHORUS BLOODon Phosphate [Mass/Vol] 3.0 mg/dL Normal 2.5-5.0 [facility] Comment on above: Performed By: #### 4 5506, 32290, 73700, 81122, 25882, 35402 #### [facility] [address] [facility] [address] PROSPERAon 10-31-2021 PROSPERA KIT Results to be mailed directly to physician's office by reference lab. Normal [facility] Comment on above: Result Comment: Test performed by [id number] [place] [address] Specimen collected for transplant patient and sent to [facility] per Dr instructions. No charge. No result expected. For billing and tracking purposes only. Performed By: #### 4 5506, 17582, 45957, 88348, 32035, 04968 #### [facility] [address] [facility]. [address] RESULT Results to be mailed directly to physician's office by reference lab. Normal [facility] Comment on above: Performed By: #### 4 5506, 50840, 08428, 79141, 14165, 82615 #### [facility] [address] [facility] [place] [place] [address], [facility] TACROLIMUSon 10-31-2021 Tacrolimus (Bld) [Mass/Vol] 7.6 ng/mL Normal 5.0-20.0 [facility] Comment on above: Result Comment: The [employer] Tacrolimus assay is a delayed one-step immunoassay for the quantitative determination of tacrolimus in human whole blood using the chemiluminescent microparticle immunoassay (CMIA) technology with flexible assay protocols, referred to as Chemiflex. Performed By: #### 4 5506, 66778, 08466, 85736, 20305, 02766 #### [facility] [address] [facility] [place] [address], [facility] URIC ACID BLOODon 10-31-2021 Urate [Mass/Vol] 7.8 mg/dL High 4.4-7.6 [facility] Comment on above: Performed By: #### 4 5506, 76284, 14381, 44611, 38150, 20971 #### [address] [address], [facility] NM PARATHYROID WITH SPECT AN D CTon 07-24-2021 NM PARATHYROID WITH SPECT AND CT [facility] Department of Radiology [address] [place] [id number] Patient Name: ROGER KERR : 1950 Sex: M Age: Race: White Pt. Location: Patient Status: D Ordered Date: 06/26/2021 8:40:00 AM Completed Date: 07/24/2021 01:21 PM Requesting Provider: SHAINA SUBRAMANIAN Attending Provider: SHAINA SUBRAMANIAN Report Copy To: JERICHO MCCARTHY Signs & Symptoms: E21.3 Hyperparathyroidism, unspecified I10 History: Sammi NPC Req. per [facility] A/B for CPT 18038 *SLA Comments: , , , Ordering Provider - SHAINA SUBRAMANIAN MD , Exam: NM PARATHYROID WITH SPECT AND CT NM PARATHYROID WITH SPECT AND CT 07/24/2021 1:21 PM CLINICAL INDICATIONS: E21.3 Hyperparathyroidism, unspecified I10 TECHNOLOGIST COMMENTS: Hyperparathyroidism. 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 Patient injected with 24.9 mCi of Tc99m Sestamibi for imaging. QUESTION FOR THE RADIOLOGIST: , , , Ordering Cirilo - SHAINA SUBRAMANIAN MD , PROTOCOL:Following injection [...] SPECT. Electronically signed: Nan Allen. Transcribed by: [email or web address], User Resident: Electronically Signed by: NAN ALLEN @ 07/27/2021 12:13 PM Normal [facility] Comment on above: Order Comment: , , = ========= , Ordering Provider - SHAINA SUBRAMANIAN MD , CBC W/DIFFon 06-22-2021 ABS IMM GRANS 0.1 10*3/uL Normal 0.0-0.2 [facility] Comment on above: Performed By: #### 4 1166, 15073, 42368, 41367, 87637, 94895 #### [facility] [address] ABS NEUTROPHILS 4.7 10*3/uL Normal 1.6-7.6 [facility] Comment on above: Performed By: #### 4 5506, 21533, 58964, 58897, 24391, 57243 #### [facility] [address] [place] [address], [facility] Basophils (Bld) [#/Vol] 0.0 10*3/uL Normal 0.0-0.2 [facility] Comment on above: Performed By: #### 4 5506, 39166, 93251, 86775, 91909, 71389 #### [facility] [address] [place] [address], [facility] Basophils/100 WBC (Bld) 0.6 % Normal 0.0-1.0 [facility] Comment on above: Performed By: #### 4 5506, 11266, 80315, 02213, 02105, 26154 #### [facility] [address] [place] [address], [facility] Eosinophils (Bld) [#/Vol] 0.2 10*3/uL Normal 0.0-0.5 [facility] Comment on above: Performed By: #### 4 5506, 05467, 96456, 34347, 88524, 20446 #### [facility] [address] [facility] [place] [address], [facility] Eosinophils/100 WBC (Bld) 2.5 % Normal 0.0-6.0 [facility] Comment on above: Performed By: #### 4 5506, 05873, 56194, 00700, 83561, 86029 #### [facility] [address] [facility] [place] [address], [facility] Erythrocyte distribution width (RBC) [Ratio] 13.6 % Normal 11.5-15.0 [facility] Comment on above: Performed By: #### 4 5506, 40294, 92409, 74889, 83065, 53237 #### [facility] [address] [place] [address], [facility] Hematocrit (Bld) [Volume fraction] 36.3 % Low 39.0-50.0 [facility] Comment on above: Performed By: #### 4 5506, 86885, 95391, 67179, 54535, 64538 #### [facility] [address] [place] [address], [facility] Hemoglobin (Bld) [Mass/Vol] 11.7 g/dL Low 13.0-17.0 [facility] Comment on above: Performed By: #### 4 5506, 93753, 27917, 23120, 75610, 17894 #### [facility] [address] [facility] [place] [address], [facility] IMMATURE GRANS 0.8 % Normal 0.0-1.0 [facility] Comment on above: Performed By: #### 4 5506, 62184, 31757, 35922, 25546, 28842 #### [facility] [address] [facility] [place] [address], [facility] Lymphocytes (Bld) [#/Vol] 0.9 10*3/uL Low 1.2-4.0 [facility] Comment on above: Performed By: #### 4 5506, 81855, 69282, 72896, 83487, 12603 #### [facility] [address] [facility]. [address] Lymphocytes/100 WBC (Bld) 13.6 % Low 20.0-45.0 [facility] Comment on above: Performed By: #### 4 5506, 09367, 36647, 01527, 96207, 23815 #### [facility] [address] [facility] [place] [address], [facility] MCH (RBC) [Entitic mass] 28.6 pg Normal 27.0-33.0 [facility] Comment on above: Performed By: #### 4 5506, 57487, 28351, 96652, 58830, 25453 #### [facility] [address] [place] [address], [facility] MCHC (RBC) [Mass/Vol] 32.2 g/dL Normal 32.0-35.0 [facility] Comment on above: Performed By: #### 4 5506, 72548, 76409, 21533, 16266, 43334 #### [facility] [address] [facility]. [address] MCV (RBC) [Entitic vol] 88.8 fL Normal 82.0-98.0 [facility] Comment on above: Performed By: #### 4 5506, 25417, 89730, 84837, 27468, 35136 #### [facility] [address] [facility]. [address] Monocytes (Bld) [#/Vol] 0.6 10*3/uL Normal 0.1-1.0 [facility] Comment on above: Performed By: #### 4 5506, 58225, 64312, 20651, 02968, 44574 #### [facility] [address] [facility]. [address] MONOS 9.6 % Normal 5.0-12.0 [facility] Comment on above: Performed By: #### 4 5506, 70696, 35849, 83746, 60213, 81039 #### [facility] [address] [facility]. [address] Neutrophils/100 WBC (Bld) 72.9 % High 40.0-72.0 [facility] Comment on above: Performed By: #### 4 5506, 39774, 54124, 32972, 34925, 98265 #### [facility] [address] [facility]. [address] Nucleated RBC/100 WBC (Bld) [Ratio] 0 % Normal 0-0 [facility] Comment on above: Performed By: #### 4 5506, 04545, 04147, 19727, 30442, 63572 #### [facility] [address] [facility] [place] [address], [place] PLAT CNT 263 10*3/uL Normal 150-400 [facility] Comment on above: Performed By: #### 4 5506, 62850, 21341, 31395, 05969, 85521 #### [facility] [address] [place] [address], [facility] RBC (Bld) [#/Vol] 4.09 10*6/uL Low 4.20-5.70 [facility] Comment on above: Performed By: #### 4 5506, 73666, 76959, 06183, 89534, 06065 #### [facility] [address] [place] [address], [facility] WBC (Bld) [#/Vol] 6.45 10*3/uL Normal 4.00-10.60 [facility] Comment on above: Performed By: #### 4 5506, 05986, 08545, 35263, 57182, 50552 #### [facility] [address] COMP METABOLIC PANELon 06-22 Albumin [Mass/Vol] 4.3 g/dL Normal 3.5-5.7 [facility] Comment on above: Performed By: #### 4 5506, 56052, 87077, 74922, 35134, 29040 #### [facility] [address] [place] [address], [facility] ALKALINE PHOSPH 143 IU/L High 34-104 [facility] Comment on above: Performed By: #### 4 5506, 17877, 15571, 40048, 11775, 58988 #### [facility] [address] [place] [address], [facility] ALT [Catalytic activity/Vol] 18 U/L Normal 7-52 [facility] Comment on above: Performed By: #### 4 5506, 83770, 34449, 50784, 22908, 90523 #### [facility] [address] [place] [address], [place] AST [Catalytic activity/Vol] 15 U/L Normal 13-39 [facility] Comment on above: Performed By: #### 4 5506, 55337, 79049, 57643, 69317, 33805 #### [facility] [address] [place] [address], [place] Bilirubin [Mass/Vol] 0.3 mg/dL Normal 0.3-1.0 [facility] Comment on above: Performed By: #### 4 5506, 52643, 41217, 31987, 49696, 56178 #### [facility] [address] [place] [address], [place] Calcium [Mass/Vol] 10.6 mg/dL High 8.6-10.3 [facility] Comment on above: Performed By: #### 4 5506, 97141, 23897, 98557, 16256, 96526 #### [facility] [address] [place] [address], [place] Chloride [Moles/Vol] 102 mmol/L Normal 98-107 [facility] Comment on above: Performed By: #### 4 5506, 81378, 94354, 03762, 71389, 15665 #### [facility] [address] [place] [address], [place] CO2 [Moles/Vol] 24 mmol/L Normal 21-31 [facility] Comment on above: Performed By: #### 4 5506, 14712, 57093, 94867, 16658, 17988 #### [facility] [address] [place] [address], [place] Creatinine [Mass/Vol] 1.04 mg/dL Normal 0.70-1.30 [facility] Comment on above: Performed By: #### 4 5506, 59060, 11671, 14577, 08720, 61009 #### [facility] [address] [place] [address], [place] GFR/1.73 sq M.predicted among blacks MDRD (S/P/Bld) [Vol rate/Area] mL/min/{1.73_m2} Normal >60 [facility] Comment on above: Performed By: #### 4 5506, 75953, 36345, 78409, 49313, 15142 #### [facility] [address] [place] [address], [place] GFR/1.73 sq M.predicted among non-blacks MDRD (S/P/Bld) [Vol rate/Area] mL/min/{1.73_m2} Normal >60 The [facility] Comment on above: Performed By: #### 4 5506, 13587, 46719, 37165, 13672, 73460 #### [facility] [address] [place] [address], [place] Glucose [Mass/Vol] 167 mg/dL High 70-100 [facility] Comment on above: Performed By: #### 4 5506, 08722, 62529, 97413, 11171, 15335 #### [facility] [address] [place] [address], [place] Potassium [Moles/Vol] 5.3 mmol/L High 3.5-5.1 [facility] Comment on above: Performed By: #### 4 5506, 68216, 57847, 35702, 08471, 37484 #### [facility] [address] [place] [address], [place] Protein [Mass/Vol] 6.5 g/dL Normal 6.0-8.3 [facility] Comment on above: Performed By: #### 4 5506, 25268, 41235, 83886, 32142, 22828 #### [facility] [address] [place] [address], [place] Sodium [Moles/Vol] 134 mmol/L Low 136-145 [facility] Comment on above: Performed By: #### 4 5506, 11694, 15732, 44571, 22622, 92946 #### [facility] [address] [place] [address], [facility] Urea nitrogen [Mass/Vol] 11 mg/dL Normal 7-25 [facility] Comment on above: Performed By: #### 4 5506, 14580, 74677, 52459, 92523, 40545 #### [facility] [address] [place] [address], [place] DIRECT BILIon 06-22-2021 Bilirubin.direct [Mass/Vol] 0.1 mg/dL Normal 0.0-0.2 [facility] Comment on above: Performed By: #### 4 5506, 28231, 39539, 27138, 21115, 07524 #### [facility] [address] [place] [address], [facility] LIPID PROFILEon 06-22-2021 Cholesterol [Mass/Vol] 77 mg/dL Low 120-200 Th e [facility] Comment on above: Result Comment: CHOL ESTEROL REFERENCE RANGE: 20 YEARS AND OLDER CARDIOVASCULAR RISK Less than 200 mg/dl Low Risk 200 to 239 mg/dl Borderline Risk 240 mg/dl and greater High Risk Performed By: #### 4 5506, 76786, 71119, 94179, 94554, 70519 #### [facility] [address] [place] [address], [facility] Cholesterol in HDL [Mass/Vol] 40 mg/dL Normal 23-92 [facility] Comment on above: Result Comment: Slig ht variation in normal range could be due to gender and/or age. HDL CHOLESTEROL REFERENCE RANGE: 20 years and older Cardiovascular Risk > or =60 mg/dL Desirable 40 TO 59 mg/dL Low Risk <40 mg/dL High Risk Performed By: #### 4 5506, 60486, 70749, 47325, 26251, 61669 #### [facility] [address] [place] [address], [place] Cholesterol in LDL [Mass/Vol] 24 mg/dL Normal 0-130 [facility] Comment on above: Result Comment: LDL IS A CALCULATION LDL IS ONLY VALID IF THE TRIG IS LESS THAN 400. Performed By: #### 4 5506, 98580, 60593, 62040, 98526, 08073 #### [facility] [address] [place] [address], [facility] Cholesterol.total/Chol esterol in HDL [Mass ratio] 1.9 {ratio} Normal .0-4.5 [facility] Comment on above: Performed By: #### 4 5506, 11156, 13539, 86351, 60806, 22682 #### [facility] [address] NON-HDL CHOLESTEROL 37 mg/dL Normal [facility] Comment on above: Performed By: #### 4 5506, 97233, 14091, 09707, 10698, 42831 #### [facility] [address] Triglyceride [Mass/Vol] 63 mg/dL Normal 40-149 [facility] Comment on above: Result Comment: TRIG LYCERIDE REFERENCE RANGE: 20 YEARS AND OLDER CARDIOVASCULAR RISK LESS THAN 150 mg/dl LOW RISK 150 TO 199 mg/dl BORDERLINE RISK 200 mg/dl AND GREATER HIGH RISK Performed By: #### 4 5506, 90093, 38519, 86568, 87991, 24074 #### [facility] [address] [place] [address], [facility] VLDL CHOL 13 mg/dL Normal 0-40 [facility] Comment on above: Performed By: #### 4 5506, 77616, 29818, 46670, 72984, 05666 #### [facility] [address] [facility] [place] [address], [facility] MAGNESIUM BLOODon 06-22-2021 Magnesium [Mass/Vol] 1.4 mg/dL Low 1.9-2.7 [facility] Comment on above: Performed By: #### 4 5506, 27632, 16358, 15575, 43144, 01572 #### [facility] [address] [facility] [place] [address], [facility] PHOSPHORUS BLOODon Phosphate [Mass/Vol] 2.5 mg/dL Normal 2.5-5.0 [facility] Comment on above: Performed By: #### 4 5506, 36892, 86022, 58164, 50529, 56382 #### [facility] [address] [facility]. [address] PTH INTACTon 06-22-2021 PTH INTACT 155 pg/mL High 12-88 [facility] Comment on above: Performed By: #### 4 5506, 94557, 25215, 95878, 01050, 59122 #### [facility] [address] [facility]. [address] TACROLIMUSon 06-22-2021 Tacrolimus (Bld) [Mass/Vol] 21.0 ng/mL High 5.0-20.0 [facility] Comment on above: Result Comment: The [employer] Tacrolimus assay is a delayed one-step immunoassay for the quantitative determination of tacrolimus in human whole blood using the chemiluminescent microparticle immunoassay (CMIA) technology with flexible assay protocols, referred to as Chemiflex. Performed By: #### 4 5506, 92795, 25658, 19522, 74499, 34330 #### [facility] [address] [facility] [place] [place] [address], [facility] URIC ACID BLOODon 06-22-2021 Urate [Mass/Vol] 7.9 mg/dL High 4.4-7.6 [facility] Comment on above: Performed By: #### 4 5506, 34425, 68098, 78014, 90207, 78140 #### [facility] [address] [facility] [place] [place] [address], [facility] CBC W/DIFFon 04-19-2021 ABS IMM GRANS 0.1 10*3/uL Normal 0.0-0.2 [facility] Comment on above: Performed By: #### 4 5506, 49331, 35372, 73420, 65275, 53969 #### [facility] [address] [place] [address], [facility] ABS NEUTROPHILS 5.2 10*3/uL Normal 1.6-7.6 [facility] Comment on above: Performed By: #### 4 5506, 26191, 90683, 43874, 45888, 88979 #### [facility] [address] [place] [address], [facility] Basophils (Bld) [#/Vol] 0.0 10*3/uL Normal 0.0-0.2 [facility] Comment on above: Performed By: #### 4 5506, 43047, 17022, 55706, 68097, 43924 #### [facility] [address] [place] [address], [facility] Basophils/100 WBC (Bld) 0.4 % Normal 0.0-1.0 [facility] Comment on above: Performed By: #### 4 5506, 69524, 63368, 63973, 17304, 59193 #### [facility] [address] [facility] [place] [address], [facility] Eosinophils (Bld) [#/Vol] 0.2 10*3/uL Normal 0.0-0.5 [facility] Comment on above: Performed By: #### 4 5506, 78323, 42678, 56314, 98248, 89101 #### [facility] [address] [place] [address], [place] Eosinophils/100 WBC (Bld) 2.9 % Normal 0.0-6.0 [facility] Comment on above: Performed By: #### 4 5506, 25858, 73447, 28291, 72448, 31433 #### [facility] [address] [place] [address], [place] Erythrocyte distribution width (RBC) [Ratio] 13.3 % Normal 11.5-15.0 [facility] Comment on above: Performed By: #### 4 5506, 74276, 38836, 48849, 36036, 43081 #### [facility] [address] Hematocrit (Bld) [Volume fraction] 37.1 % Low 39.0-50.0 [facility] Comment on above: Performed By: #### 4 5506, 99915, 88909, 44561, 65802, 98368 #### [facility] [address] [facility] Hemoglobin (Bld) [Mass/Vol] 11.7 g/dL Low 13.0-17.0 [facility] Comment on above: Performed By: #### 4 5506, 13688, 04615, 25046, 86916, 62848 #### [facility] [address] [facility] [address] IMMATURE GRANS 0.9 % Normal 0.0-1.0 [facility] Comment on above: Performed By: #### 4 5506, 76040, 65459, 29448, 41081, 11547 #### [facility] [address] [facility] [place] [address], [facility] Lymphocytes (Bld) [#/Vol] 0.9 10*3/uL Low 1.2-4.0 [facility] Comment on above: Performed By: #### 4 5506, 73668, 78101, 86406, 87174, 94128 #### [facility] [address] [facility] [place] [address], [facility] Lymphocytes/100 WBC (Bld) 12.5 % Low 20.0-45.0 [facility] Comment on above: Performed By: #### 4 5506, 59356, 59512, 20598, 96964, 77061 #### [facility] [address] MCH (RBC) [Entitic mass] 29.0 pg Normal 27.0-33.0 [facility] Comment on above: Performed By: #### 4 5506, 00271, 96447, 17046, 66387, 00411 #### [facility] [address] MCHC (RBC) [Mass/Vol] 31.5 g/dL Low 32.0-35.0 [facility] Comment on above: Performed By: #### 4 5506, 90987, 56301, 15504, 45523, 95317 #### [facility] [address] [facility] [address] MCV (RBC) [Entitic vol] 92.1 fL Normal 82.0-98.0 [facility] Comment on above: Performed By: #### 4 5506, 84547, 35442, 54186, 18392, 26124 #### [facility] [address] [facility] [address] Monocytes (Bld) [#/Vol] 0.6 10*3/uL Normal 0.1-1.0 [facility] Comment on above: Performed By: #### 4 5506, 77357, 55856, 78698, 79153, 85822 #### [facility] [address] [facility] [address] MONOS 8.6 % Normal 5.0-12.0 [facility] Comment on above: Performed By: #### 4 5506, 57633, 47689, 87612, 28958, 69334 #### [facility] [address] [facility] [place] [address], [facility] Neutrophils/100 WBC (Bld) 74.7 % High 40.0-72.0 [facility] Comment on above: Performed By: #### 4 5506, 02066, 43804, 22578, 13658, 73807 #### [facility] [address] [facility] Nucleated RBC/100 WBC (Bld) [Ratio] 0 % Normal 0-0 [facility] Comment on above: Performed By: #### 4 5506, 65727, 33427, 88338, 72861, 84370 #### [facility] [address] [place] [address], [facility] PLAT CNT 290 10*3/uL Normal 150-400 [facility] Comment on above: Performed By: #### 4 5506, 64484, 14489, 51807, 54850, 19566 #### [facility] [address] [facility]. [address] RBC (Bld) [#/Vol] 4.03 10*6/uL Low 4.20-5.70 [facility] Comment on above: Performed By: #### 4 5506, 06428, 01388, 29147, 89754, 34281 #### [facility] [address] [facility]. [address] WBC (Bld) [#/Vol] 6.96 10*3/uL Normal 4.00-10.60 [facility] Comment on above: Performed By: #### 4 5506, 96489, 69014, 00411, 10691, 01058 #### [facility] [address] [facility]. [address] COMP METABOLIC PANELon 04-19 Albumin [Mass/Vol] 4.3 g/dL Normal 3.5-5.7 [facility] Comment on above: Performed By: #### 4 5506, 90011, 02694, 71728, 60663, 67860 #### [facility] [address] [facility]. [address] ALKALINE PHOSPH 137 IU/L High 34-104 [facility] Comment on above: Performed By: #### 4 5506, 71774, 97909, 73665, 74948, 43085 #### [facility] [address] [place] [address], [place] ALT [Catalytic activity/Vol] 17 U/L Normal 7-52 [facility] Comment on above: Performed By: #### 4 5506, 03660, 03074, 37582, 60367, 92698 #### [facility] [address] [place] [address], [place] AST [Catalytic activity/Vol] 16 U/L Normal 13-39 [facility] Comment on above: Performed By: #### 4 5506, 05865, 19184, 42849, 51383, 77292 #### [facility] [address] [place] [address], [place] Bilirubin [Mass/Vol] 0.4 mg/dL Normal 0.3-1.0 [facility] Comment on above: Performed By: #### 4 5506, 19226, 12949, 75070, 67843, 07849 #### [facility] [address] [place] [address], [place] Calcium [Mass/Vol] 10.5 mg/dL High 8.6-10.3 [facility] Comment on above: Performed By: #### 4 5506, 55936, 49635, 02344, 53602, 96268 #### [facility] [address] [place] [address], [place] Chloride [Moles/Vol] 99 mmol/L Normal 98-107 [facility] Comment on above: Performed By: #### 4 5506, 51133, 92103, 32198, 66953, 78274 #### [facility] [address] [place] [address], [place] CO2 [Moles/Vol] 27 mmol/L Normal 21-31 [facility] Comment on above: Performed By: #### 4 5506, 36754, 30890, 91078, 29396, 60902 #### [facility] [address] [place] [address], [place] Creatinine [Mass/Vol] 1.04 mg/dL Normal 0.70-1.30 [facility] Comment on above: Performed By: #### 4 5506, 99210, 42666, 96856, 63860, 11788 #### [facility] [address] [place] [address], [place] GFR/1.73 sq M.predicted among blacks MDRD (S/P/Bld) [Vol rate/Area] mL/min/{1.73_m2} Normal >60 [facility] Comment on above: Performed By: #### 4 5506, 79297, 84385, 94509, 62808, 79789 #### [facility] [address] [place] [address], [place] GFR/1.73 sq M.predicted among non-blacks MDRD (S/P/Bld) [Vol rate/Area] mL/min/{1.73_m2} Normal >60 [facility] Comment on above: Performed By: #### 4 5506, 15539, 36626, 85241, 19770, 93414 #### [facility] [address] [place] [address], [place] Glucose [Mass/Vol] 139 mg/dL High 70-100 [facility] Comment on above: Performed By: #### 4 5506, 99092, 90530, 98416, 48965, 25055 #### [facility] [address] [place] [address], [place] Potassium [Moles/Vol] 5.1 mmol/L Normal 3.5-5.1 [facility] Comment on above: Performed By: #### 4 5506, 71020, 13166, 51674, 24059, 87692 #### [facility] [address] [place] [address], [place] Protein [Mass/Vol] 6.5 g/dL Normal 6.0-8.3 [facility] Comment on above: Performed By: #### 4 5506, 72879, 00243, 01795, 78190, 07517 #### [facility] [address] [place] [address], [facility] Sodium [Moles/Vol] 133 mmol/L Low 136-145 [facility] Comment on above: Performed By: #### 4 5506, 52780, 56494, 26954, 37527, 80055 #### [facility] [address] [place] [address], [facility] Urea nitrogen [Mass/Vol] 11 mg/dL Normal 7-25 [facility] Comment on above: Performed By: #### 4 5506, 71136, 40625, 19699, 69150, 05466 #### [facility] [address] [place] [address], [facility] DIRECT BILIon 04-19-2021 Bilirubin.direct [Mass/Vol] 0.1 mg/dL Normal 0.0-0.2 [facility] Comment on above: Performed By: #### 4 5506, 49615, 81132, 31295, 66757, 82787 #### [facility] [address] [place] [address], [facility] LIPID PROFILEon 04-19-2021 Cholesterol [Mass/Vol] 82 mg/dL Low 120-200 Th e [facility] Comment on above: Result Comment: CHOL ESTEROL REFERENCE RANGE: 20 YEARS AND OLDER CARDIOVASCULAR RISK Less than 200 mg/dl Low Risk 200 to 239 mg/dl Borderline Risk 240 mg/dl and greater High Risk Performed By: #### 4 5506, 68722, 11268, 25107, 81341, 16079 #### [facility] [address] [place] [address], [facility] Cholesterol in HDL [Mass/Vol] 38 mg/dL Normal 23-92 [facility] Comment on above: Result Comment: Slig ht variation in normal range could be due to gender and/or age. HDL CHOLESTEROL REFERENCE RANGE: 20 years and older Cardiovascular Risk > or =60 mg/dL Desirable 40 TO 59 mg/dL Low Risk <40 mg/dL High Risk Performed By: #### 4 5506, 13261, 85906, 34125, 26914, 60974 #### [facility] [address] [place] [address], [place] Cholesterol in LDL [Mass/Vol] 25 mg/dL Normal 0-130 [facility] Comment on above: Result Comment: LDL IS A CALCULATION LDL IS ONLY VALID IF THE TRIG IS LESS THAN 400. Performed By: #### 4 5506, 93998, 44170, 72603, 58753, 45497 #### [facility] [address] [place] [address], [place] Cholesterol.total/Chol esterol in HDL [Mass ratio] 2.2 {ratio} Normal .0-4.5 [facility] Comment on above: Performed By: #### 4 5506, 90161, 27110, 92579, 63193, 91262 #### [facility] [address] [place] [address], [place] NON-HDL CHOLESTEROL 44 mg/dL Normal [facility] Comment on above: Performed By: #### 4 5506, 49046, 52027, 78993, 99335, 05242 #### [facility] [address] [place] [address], [place] Triglyceride [Mass/Vol] 93 mg/dL Normal 40-149 [facility] Comment on above: Result Comment: TRIG LYCERIDE REFERENCE RANGE: 20 YEARS AND OLDER CARDIOVASCULAR RISK LESS THAN 150 mg/dl LOW RISK 150 TO 199 mg/dl BORDERLINE RISK 200 mg/dl AND GREATER HIGH RISK Performed By: #### 4 5506, 78843, 83188, 11734, 34859, 18894 #### [facility] [address] [place] [address], [place] VLDL CHOL 19 mg/dL Normal 0-40 [facility] Comment on above: Performed By: #### 4 5506, 75093, 85843, 60214, 19149, 64482 #### [facility] [address] [place] [address], [facility] MAGNESIUM BLOODon 04-19-2021 Magnesium [Mass/Vol] 1.8 mg/dL Low 1.9-2.7 [facility] Comment on above: Performed By: #### 4 5506, 08308, 65203, 71428, 40704, 13292 #### [facility] [address] [place] [address], [facility] PHOSPHORUS BLOODon Phosphate [Mass/Vol] 3.0 mg/dL Normal 2.5-5.0 [facility] Comment on above: Performed By: #### 4 5506, 40689, 99297, 00724, 35247, 30676 #### [facility] [address] [facility] [place] [address], [facility] PROSPERAon 04-19-2021 PROSPERA KIT Results to be mailed directly to physician's office by reference lab. Normal [facility] Comment on above: Result Comment: Test performed by [id number] [place] [address] No result expected. For billing and tracking purposes only. Specimen collected for transplant patient and sent to requesting hospital per Dr instructions. No charge. Performed By: #### 4 5506, 42102, 91370, 66403, 52951, 80716 #### [facility] [address] [facility] [address] RESULT Results to be mailed directly to physician's office by reference lab. Normal [facility] Comment on above: Performed By: #### 4 5506, 27102, 52189, 52506, 34292, 52672 #### [facility] [address] [place] [address], [facility] TACROLIMUSon 04-19-2021 Tacrolimus (Bld) [Mass/Vol] 7.7 ng/mL Normal 5.0-20.0 The [facility] Comment on above: Result Comment: The [employer] Tacrolimus assay is a delayed one-step immunoassay for the quantitative determination of tacrolimus in human whole blood using the chemiluminescent microparticle immunoassay (CMIA) technology with flexible assay protocols, referred to as Chemiflex. Performed By: #### 4 5506, 20388, 88637, 12225, 03234, 16817 #### [facility] [address] URIC ACID BLOODon 04-19-2021 Urate [Mass/Vol] 7.9 mg/dL High 4.4-7.6 [facility] Comment on above: Performed By: #### 4 5506, 47831, 61981, 93220, 60213, 37318 #### [facility] [address] CBC W/DIFFon 04-11-2021 ABS IMM GRANS 0.0 10*3/uL Normal 0.0-0.2 [facility] Comment on above: Performed By: #### 4 5506, 93694, 11271, 37595, 19980, 25571 #### [facility] [address] ABS NEUTROPHILS 4.5 10*3/uL Normal 1.6-7.6 [facility] Comment on above: Performed By: #### 4 5506, 01776, 69977, 96865, 17255, 67541 #### [facility] [address] [place] [address], [facility] Basophils (Bld) [#/Vol] 0.0 10*3/uL Normal 0.0-0.2 [facility] Comment on above: Performed By: #### 4 5506, 34810, 19429, 09749, 30278, 86728 #### [facility] [address] [place] [address], [facility] Basophils/100 WBC (Bld) 0.5 % Normal 0.0-1.0 [facility] Comment on above: Performed By: #### 4 5506, 96261, 33799, 55123, 69345, 35580 #### [facility] [address] [place] [address], [facility] Eosinophils (Bld) [#/Vol] 0.2 10*3/uL Normal 0.0-0.5 [facility] Comment on above: Performed By: #### 4 5506, 39823, 39863, 40157, 83937, 45067 #### [facility] [address] [place] [address], [facility] Eosinophils/100 WBC (Bld) 3.1 % Normal 0.0-6.0 [facility] Comment on above: Performed By: #### 4 5506, 54066, 25042, 31099, 01632, 48341 #### [facility] [address] Erythrocyte distribution width (RBC) [Ratio] 13.4 % Normal 11.5-15.0 [facility] Comment on above: Performed By: #### 4 5506, 97603, 35822, 38316, 97202, 18401 #### [facility] [address] Hematocrit (Bld) [Volume fraction] 35.5 % Low 39.0-50.0 [facility] Comment on above: Performed By: #### 4 5506, 67171, 56862, 88102, 36902, 73566 #### [facility] [address] [place] [address], [facility] Hemoglobin (Bld) [Mass/Vol] 11.7 g/dL Low 13.0-17.0 [facility] Comment on above: Performed By: #### 4 5506, 54843, 41876, 01242, 63281, 03198 #### [facility] [address] IMMATURE GRANS 0.6 % Normal 0.0-1.0 [facility] Comment on above: Performed By: #### 4 5506, 19663, 68577, 36270, 71858, 57830 #### [facility] [address] [facility]. [address] Lymphocytes (Bld) [#/Vol] 0.8 10*3/uL Low 1.2-4.0 [facility] Comment on above: Performed By: #### 4 5506, 77747, 85326, 13838, 87857, 42179 #### [facility] [address] Lymphocytes/100 WBC (Bld) 12.9 % Low 20.0-45.0 [facility] Comment on above: Performed By: #### 4 5506, 72850, 24650, 86733, 38045, 75340 #### [facility] [address] MCH (RBC) [Entitic mass] 29.2 pg Normal 27.0-33.0 [facility] Comment on above: Performed By: #### 4 5506, 47204, 32652, 37689, 04831, 14595 #### [facility] [address] [facility]. [address] MCHC (RBC) [Mass/Vol] 33.0 g/dL Normal 32.0-35.0 [facility] [place] Comment on above: Performed By: #### 4 5506, 46742, 53798, 53643, 92220, 48837 #### [facility] [address] [facility] [place] [place] [address], [facility] MCV (RBC) [Entitic vol] 88.5 fL Normal 82.0-98.0 [facility] [place] Comment on above: Performed By: #### 4 5506, 90283, 09159, 71250, 07818, 75500 #### [facility] [address] [facility] [place] [address], [facility] Monocytes (Bld) [#/Vol] 0.6 10*3/uL Normal 0.1-1.0 [facility] Comment on above: Performed By: #### 4 5506, 81169, 96847, 92463, 06546, 52731 #### [facility] [address] [facility] [place] [address], [facility] MONOS 10.3 % Normal 5.0-12.0 [facility] Comment on above: Performed By: #### 4 5506, 33994, 26216, 79282, 89383, 59820 #### [facility] [address] [facility] [place] [address], [facility] Neutrophils/100 WBC (Bld) 72.6 % High 40.0-72.0 [facility] [place] Comment on above: Performed By: #### 4 5506, 11345, 95639, 19053, 46772, 92616 #### [facility] [address] [facility] [place] [address], [facility] Nucleated RBC/100 WBC (Bld) [Ratio] 0 % Normal 0-0 [facility] Comment on above: Performed By: #### 4 5506, 92542, 66866, 83363, 16912, 55894 #### [facility] [address] [facility] [place] [address], [facility] PLAT CNT 272 10*3/uL Normal 150-400 [facility] [place] Comment on above: Performed By: #### 4 5506, 92895, 42628, 35115, 36772, 92988 #### [facility] [address] [facility] [place] [address], [facility] RBC (Bld) [#/Vol] 4.01 10*6/uL Low 4.20-5.70 [facility] Comment on above: Performed By: #### 4 5506, 89346, 80355, 50035, 08298, 86082 #### [facility] [address] [place] [address], [facility] WBC (Bld) [#/Vol] 6.22 10*3/uL Normal 4.00-10.60 [facility] Comment on above: Performed By: #### 4 5506, 06251, 07124, 98466, 87957, 52870 #### [facility] [address] [place] [address], [facility] COMP METABOLIC PANELon 04-11 Albumin [Mass/Vol] 4.3 g/dL Normal 3.5-5.7 [facility] Comment on above: Performed By: #### 4 5506, 83389, 00228, 17733, 47241, 46717 #### [facility] [address] [place] [address], [facility] ALKALINE PHOSPH 115 IU/L High 34-104 [facility] Comment on above: Performed By: #### 4 5506, 71429, 35896, 24600, 27759, 34727 #### [facility] [address] [place] [address], [facility] ALT [Catalytic activity/Vol] 16 U/L Normal 7-52 [facility] Comment on above: Performed By: #### 4 5506, 57284, 21762, 35504, 53421, 63200 #### [facility] [address] [place] [address], [facility] AST [Catalytic activity/Vol] 15 U/L Normal 13-39 [facility] Comment on above: Performed By: #### 4 5506, 69332, 19877, 33808, 32465, 32312 #### [facility] [address] [place] [address], [facility] Bilirubin [Mass/Vol] 0.6 mg/dL Normal 0.3-1.0 [facility] Comment on above: Performed By: #### 4 5506, 27482, 20863, 53620, 20422, 96064 #### [facility] [address] [place] [address], [place] Calcium [Mass/Vol] 10.3 mg/dL Normal 8.6-10.3 [facility] Comment on above: Performed By: #### 4 5506, 94785, 54835, 45104, 42215, 80472 #### [facility] [address] [place] [address], [place] Chloride [Moles/Vol] 97 mmol/L Low 98-107 [facility] Comment on above: Performed By: #### 4 5506, 87971, 49020, 77472, 30489, 59563 #### [facility] [address] [place] [address], [place] CO2 [Moles/Vol] 26 mmol/L Normal 21-31 [facility] Comment on above: Performed By: #### 4 5506, 53460, 04951, 85982, 34015, 95215 #### [facility] [address] [place] [address], [place] Creatinine [Mass/Vol] 0.93 mg/dL Normal 0.70-1.30 [facility] Comment on above: Performed By: #### 4 5506, 72680, 57112, 01203, 35877, 94047 #### [facility] [address] [place] [address], [place] GFR/1.73 sq M.predicted among blacks MDRD (S/P/Bld) [Vol rate/Area] mL/min/{1.73_m2} Normal >60 [facility] Comment on above: Performed By: #### 4 5506, 63654, 55303, 76886, 13020, 69853 #### [facility] [address] [place] [address], [place] GFR/1.73 sq M.predicted among non-blacks MDRD (S/P/Bld) [Vol rate/Area] mL/min/{1.73_m2} Normal >60 [facility] Comment on above: Performed By: #### 4 5506, 51433, 84509, 07704, 43860, 98256 #### [facility] [address] [place] [address], [place] Glucose [Mass/Vol] 136 mg/dL High 70-100 [facility] Comment on above: Performed By: #### 4 5506, 42906, 27288, 48378, 69051, 07284 #### [facility] [address] [place] [address], [place] Potassium [Moles/Vol] 5.2 mmol/L High 3.5-5.1 [facility] Comment on above: Performed By: #### 4 5506, 80404, 04822, 29465, 63065, 46512 #### [facility] [address] [place] [address], [place] Protein [Mass/Vol] 6.7 g/dL Normal 6.0-8.3 [facility] Comment on above: Performed By: #### 4 5506, 39445, 06044, 57898, 90831, 75879 #### [facility] [address] [place] [address], [place] Sodium [Moles/Vol] 129 mmol/L Low 136-145 [facility] Comment on above: Performed By: #### 4 5506, 08828, 31021, 77287, 60579, 38981 #### [facility] [address] [place] [address], [place] Urea nitrogen [Mass/Vol] 10 mg/dL Normal 7-25 [facility] Comment on above: Performed By: #### 4 5506, 09516, 25833, 56739, 31194, 32723 #### [facility] [address] [place] [address], [place] DIRECT BILIon 04-11-2021 Bilirubin.direct [Mass/Vol] 0.2 mg/dL Normal 0.0-0.2 [facility] Comment on above: Performed By: #### 4 5506, 90047, 44415, 46859, 38650, 70918 #### [facility] [address] [place] [address], [facility] LIPID PROFILEon 04-11-2021 Cholesterol [Mass/Vol] 84 mg/dL Low 120-200 Th e [facility] Comment on above: Result Comment: CHOL ESTEROL REFERENCE RANGE: 20 YEARS AND OLDER CARDIOVASCULAR RISK Less than 200 mg/dl Low Risk 200 to 239 mg/dl Borderline Risk 240 mg/dl and greater High Risk Performed By: #### 4 5506, 18641, 46013, 81040, 96299, 45284 #### [facility] [address] [place] [address], [facility] Cholesterol in HDL [Mass/Vol] 41 mg/dL Normal 23-92 [facility] Comment on above: Result Comment: Slig ht variation in normal range could be due to gender and/or age. HDL CHOLESTEROL REFERENCE RANGE: 20 years and older Cardiovascular Risk > or =60 mg/dL Desirable 40 TO 59 mg/dL Low Risk <40 mg/dL High Risk Performed By: #### 4 5506, 55407, 47325, 91642, 27900, 33766 #### [facility] [address] [place] [address], [place] Cholesterol in LDL [Mass/Vol] 34 mg/dL Normal 0-130 [facility] Comment on above: Result Comment: LDL IS A CALCULATION LDL IS ONLY VALID IF THE TRIG IS LESS THAN 400. Performed By: #### 4 5506, 05612, 10184, 87080, 52754, 93760 #### [facility] [address] [place] [address], [place] Cholesterol.total/Chol esterol in HDL [Mass ratio] 2.0 {ratio} Normal .0-4.5 [facility] Comment on above: Performed By: #### 4 5506, 07399, 69339, 34418, 17284, 03785 #### [facility] [address] NON-HDL CHOLESTEROL 43 mg/dL Normal [facility] Comment on above: Performed By: #### 4 5506, 44132, 53080, 64841, 26477, 81111 #### [facility] [address] [place] [address], [facility] Triglyceride [Mass/Vol] 47 mg/dL Normal 40-149 [facility] Comment on above: Result Comment: TRIG LYCERIDE REFERENCE RANGE: 20 YEARS AND OLDER CARDIOVASCULAR RISK LESS THAN 150 mg/dl LOW RISK 150 TO 199 mg/dl BORDERLINE RISK 200 mg/dl AND GREATER HIGH RISK Performed By: #### 4 5506, 43693, 30162, 40293, 65274, 71631 #### [facility] [address] [place] [address], [facility] VLDL CHOL 9 mg/dL Normal 0-40 [facility] Comment on above: Performed By: #### 4 5506, 40093, 59252, 36876, 68740, 32364 #### [facility] [address] [place] [address], [facility] MAGNESIUM BLOODon 04-11-2021 Magnesium [Mass/Vol] 1.3 mg/dL Low 1.9-2.7 [facility] Comment on above: Performed By: #### 4 5506, 66951, 18216, 91151, 88200, 78557 #### [facility] [address] [place] [address], [facility] PHOSPHORUS BLOODon Phosphate [Mass/Vol] 2.6 mg/dL Normal 2.5-5.0 [facility] Comment on above: Performed By: #### 4 5506, 93433, 12444, 60442, 06222, 29354 #### [facility] [address] [place] [address], [facility] TACROLIMUSon 04-11-2021 Tacrolimus (Bld) [Mass/Vol] 8.3 ng/mL Normal 5.0-20.0 [facility] Comment on above: Result Comment: The [employer] Tacrolimus assay is a delayed one-step immunoassay for the quantitative determination of tacrolimus in human whole blood using the chemiluminescent microparticle immunoassay (CMIA) technology with flexible assay protocols, referred to as Chemiflex. Performed By: #### 4 5506, 88023, 58957, 64169, 63478, 72251 #### [facility] [address] [place] [address], [facility] URIC ACID BLOODon 04-11-2021 Urate [Mass/Vol] 8.4 mg/dL High 4.4-7.6 [facility] Comment on above: Performed By: #### 4 5506, 84847, 86286, 62307, 32149, 83769 #### [facility] [address] [facility] [address] BK VIRUS QUANTITATION FOR PL ASMAon 02-16-2021 BKV Plasma Quantitation by PCR Not detected Normal [facility] Comment on above: Result Comment: Meth od: BK virus was measured by quantitative polymerase chain reaction using a fluorescent hydrolysis probe targeting the polyomavirus BK ROD BUSTER-1 gene. The lower limit of quantitation of the assay is 500 copies of BK genome per milliliter of plasma or urine, and any detectable BK DNA below that level is reported as: Detected, <500 copies/ml. Serial BK virus measurement can be used to monitor disease activity. (Reference: Katina ramirezl. J CLIN MICRO 2004; 42:9925-3499). This test was developed and its performance characteristics determined by the [facility]. It has not been approved by the [place] Food and Drug Administration. However, such approval is not required for clinical implementation, and test results have been shown to be clinically useful. This laboratory is CAP accredited and CLIA certified to perform high complexity testing. Performed By: #### 4 5506, 38123, 83721, 10418, 97499, 87633 #### [facility] [address] [place] [address], [facility] BKV Plasma Quantitation Log by PCR Not detected Normal [facility] Comment on above: Performed By: #### 4 5506, 42798, 09726, 43459, 24684, 50868 #### [facility] [address] [facility]. [address] CBC W/DIFFon 02-16-2021 ABS IMM GRANS 0.1 10*3/uL Normal 0.0-0.2 [facility] Comment on above: Performed By: #### 4 5506, 63375, 05004, 75776, 76861, 49320 #### [facility] [address] [facility]. [address] ABS NEUTROPHILS 5.8 10*3/uL Normal 1.6-7.6 [facility] Comment on above: Performed By: #### 4 5506, 72204, 55625, 55097, 09324, 14737 #### [facility] [address] [facility] [address] Basophils (Bld) [#/Vol] 0.0 10*3/uL Normal 0.0-0.2 [facility] Comment on above: Performed By: #### 4 5506, 99673, 99264, 00642, 11277, 69437 #### [facility] [address] [facility] [address] Basophils/100 WBC (Bld) 0.4 % Normal 0.0-1.0 [facility] Comment on above: Performed By: #### 4 5506, 22658, 17176, 39401, 11877, 51761 #### [facility] [address] [place] [address], [facility] Eosinophils (Bld) [#/Vol] 0.3 10*3/uL Normal 0.0-0.5 [facility] Comment on above: Performed By: #### 4 5506, 88861, 19381, 33142, 63162, 76404 #### [facility] [address] Eosinophils/100 WBC (Bld) 3.5 % Normal 0.0-6.0 [facility] Comment on above: Performed By: #### 4 5506, 92035, 98658, 46333, 47667, 31472 #### [facility] [address] [facility]. [address] Erythrocyte distribution width (RBC) [Ratio] 13.6 % Normal 11.5-15.0 [facility] Comment on above: Performed By: #### 4 5506, 58332, 99273, 47450, 08980, 10704 #### [facility] [address] Hematocrit (Bld) [Volume fraction] 34.1 % Low 39.0-50.0 [facility] Comment on above: Performed By: #### 4 5506, 10761, 07173, 87548, 83981, 93140 #### [facility] [address] Hemoglobin (Bld) [Mass/Vol] 11.6 g/dL Low 13.0-17.0 [facility] Comment on above: Performed By: #### 4 5506, 26387, 52954, 52636, 85191, 02221 #### [facility] [address] IMMATURE GRANS 0.8 % Normal 0.0-1.0 [facility] Comment on above: Performed By: #### 4 5506, 17209, 19785, 50363, 44068, 38487 #### [facility] [address] Lymphocytes (Bld) [#/Vol] 0.7 10*3/uL Low 1.2-4.0 [facility] Comment on above: Performed By: #### 4 5506, 70420, 31480, 59038, 83843, 11784 #### [facility] [address] [facility] [place] [address], [facility] Lymphocytes/100 WBC (Bld) 9.2 % Low 20.0-45.0 [facility] Comment on above: Performed By: #### 4 5506, 89446, 26232, 89466, 64249, 38862 #### [facility] [address] [facility] [place] [address], [facility] MCH (RBC) [Entitic mass] 29.5 pg Normal 27.0-33.0 [facility] Comment on above: Performed By: #### 4 5506, 04757, 53261, 64984, 27934, 71418 #### [facility] [address] [facility] [address] MCHC (RBC) [Mass/Vol] 34.0 g/dL Normal 32.0-35.0 [facility] Comment on above: Performed By: #### 4 5506, 47519, 13183, 31704, 14204, 28981 #### [facility] [address] [facility] [place] [address], [facility] MCV (RBC) [Entitic vol] 86.8 fL Normal 82.0-98.0 [facility] Comment on above: Performed By: #### 4 5506, 62519, 70324, 39854, 08245, 95022 #### [facility] [address] [facility] [place] [place] [address], [facility] Monocytes (Bld) [#/Vol] 0.8 10*3/uL Normal 0.1-1.0 [facility] Comment on above: Performed By: #### 4 5506, 01552, 56980, 50038, 00977, 41575 #### [facility] [address] [place] [address], [facility] MONOS 10.3 % Normal 5.0-12.0 [facility] Comment on above: Performed By: #### 4 5506, 87706, 24580, 88800, 60977, 43273 #### [facility] [address] [facility] [place] [address], [facility] Neutrophils/100 WBC (Bld) 75.8 % High 40.0-72.0 [facility] Comment on above: Performed By: #### 4 5506, 25773, 53647, 44649, 09535, 51890 #### [facility] [address] [facility] [place] [address], [facility] Nucleated RBC/100 WBC (Bld) [Ratio] 0 % Normal 0-0 [facility] Comment on above: Performed By: #### 4 5506, 91778, 97842, 11873, 42873, 45252 #### [facility] [address] [facility] [place] [address], [facility] PLAT CNT 256 10*3/uL Normal 150-400 [facility] Comment on above: Performed By: #### 4 5506, 07645, 74557, 77583, 40582, 83216 #### [facility] [address] [facility] [place] [place] [address], [facility] RBC (Bld) [#/Vol] 3.93 10*6/uL Low 4.20-5.70 [facility] Comment on above: Performed By: #### 4 5506, 71521, 82442, 55541, 91314, 22189 #### [facility] [address] [facility] [place] [address], [facility] WBC (Bld) [#/Vol] 7.65 10*3/uL Normal 4.00-10.60 [facility] Comment on above: Performed By: #### 4 5506, 49049, 05619, 10386, 05378, 24172 #### [facility] [address] [place] [address], [facility] COMP METABOLIC PANELon 02-16 Albumin [Mass/Vol] 4.6 g/dL Normal 3.5-5.7 [facility] Comment on above: Performed By: #### 0 0121, 41476, 96315, 66423, 43677, 78234, 19810, 05782 #### [facility] [address] [place] [address], [facility] ALKALINE PHOSPH 136 IU/L High 34-104 [facility] Comment on above: Performed By: #### 0 0121, 16924, 06237, 76323, 85940, 41213, 69833, 45101 #### [facility] [address] [place] [address], [facility] ALT [Catalytic activity/Vol] 22 U/L Normal 7-52 [facility] Comment on above: Performed By: #### 0 0121, 42668, 64767, 35435, 11759, 02797, 13632, 79253 #### [facility] [address] [place] [address], [facility] AST [Catalytic activity/Vol] 18 U/L Normal 13-39 [facility] Comment on above: Performed By: #### 0 0121, 60148, 71168, 48001, 90157, 34700, 34500, 61535 #### [facility] [address] [place] [address], [place] Bilirubin [Mass/Vol] 0.5 mg/dL Normal 0.3-1.0 [facility] Comment on above: Performed By: #### 0 0121, 81676, 24538, 59190, 41069, 79821, 78392, 75986 #### [facility] [address] [place] [address], [place] Calcium [Mass/Vol] 10.5 mg/dL High 8.6-10.3 [facility] Comment on above: Performed By: #### 0 0121, 25591, 18796, 70361, 66318, 97845, 93670, 04869 #### [facility] [address] [place] [address], [facility] Chloride [Moles/Vol] 94 mmol/L Low 98-107 [facility] Comment on above: Performed By: #### 0 0121, 37744, 59587, 82161, 81607, 18198, 96940, 35481 #### [facility] [address] [place] [address], [place] CO2 [Moles/Vol] 28 mmol/L Normal 21-31 [facility] Comment on above: Performed By: #### 0 0121, 03640, 19403, 11499, 85971, 95735, 94371, 35906 #### [facility] [address] [place] [address], [place] Creatinine [Mass/Vol] 0.93 mg/dL Normal 0.70-1.30 [facility] Comment on above: Performed By: #### 0 0121, 32135, 14264, 60519, 32931, 49508, 35647, 79776 #### [facility] [address] [place] [address], [place] GFR/1.73 sq M.predicted among blacks MDRD (S/P/Bld) [Vol rate/Area] mL/min/{1.73_m2} Normal >60 [facility] Comment on above: Performed By: #### 0 0121, 59022, 41144, 01679, 15605, 56452, 72160, 97832 #### [facility] [address] [place] [address], [place] GFR/1.73 sq M.predicted among non-blacks MDRD (S/P/Bld) [Vol rate/Area] mL/min/{1.73_m2} Normal >60 [facility] Comment on above: Performed By: #### 0 0121, 84837, 91785, 53049, 36752, 12467, 38971, 71594 #### [facility] [address] [place] [address], [place] Glucose [Mass/Vol] 147 mg/dL High 70-100 [facility] Comment on above: Performed By: #### 0 0121, 89338, 58219, 07122, 65702, 30167, 61689, 27763 #### [facility] [address] [place] [address], [facility] Potassium [Moles/Vol] 4.6 mmol/L Normal 3.5-5.1 [facility] Comment on above: Performed By: #### 0 0121, 89988, 43006, 13436, 50059, 27523, 83455, 87616 #### [facility] [address] [place] [address], [facility] Protein [Mass/Vol] 7.2 g/dL Normal 6.0-8.3 [facility] Comment on above: Performed By: #### 0 0121, 84261, 14286, 43102, 55522, 01455, 29960, 97492 #### [facility] [address] [place] [address], [facility] Sodium [Moles/Vol] 129 mmol/L Low 136-145 [facility] Comment on above: Performed By: #### 0 0121, 66087, 26937, 99094, 82586, 09281, 26881, 01627 #### [facility] [address] [place] [address], [facility] Urea nitrogen [Mass/Vol] 15 mg/dL Normal 7-25 [facility] Comment on above: Performed By: #### 0 0121, 45770, 26522, 97589, 42120, 11938, 75604, 88144 #### [facility] [address] [place] [address], [facility] DIRECT BILIon 02-16-2021 Bilirubin.direct [Mass/Vol] 0.2 mg/dL Normal 0.0-0.2 [facility] Comment on above: Performed By: #### 4 5506, 14964, 53205, 80226, 01838, 65138 #### [facility] [address] [place] [address], [facility] HEMOGLOBIN A1Con 02-16-2021 Glucose [Moles/Vol] 154 mmol/L Normal [facility] Comment on above: Performed By: #### 4 5506, 22217, 38928, 38458, 85134, 61287 #### [facility] [address] [place] [address], [facility] HbA1c (Bld) [Mass fraction] 7.0 % High 4.0-6.0 [facility] Comment on above: Performed By: #### 4 5506, 83103, 67514, 34963, 67123, 63234 #### [facility] [address] [place] [address], [facility] LIPID PROFILEon 02-16-2021 Cholesterol [Mass/Vol] 78 mg/dL Low 120-200 Th e [facility] Comment on above: Result Comment: CHOL ESTEROL REFERENCE RANGE: 20 YEARS AND OLDER CARDIOVASCULAR RISK Less than 200 mg/dl Low Risk 200 to 239 mg/dl Borderline Risk 240 mg/dl and greater High Risk Performed By: #### [id number], [id number], [id number], [id number], [id number], [id number], [id number] #### [facility] [address] [place] [address], [facility] Cholesterol in HDL [Mass/Vol] 41 mg/dL Normal 23-92 [facility] Comment on above: Result Comment: Slig ht variation in normal range could be due to gender and/or age. HDL CHOLESTEROL REFERENCE RANGE: 20 years and older Cardiovascular Risk > or =60 mg/dL Desirable 40 TO 59 mg/dL Low Risk <40 mg/dL High Risk Performed By: #### 0 0121, 04180, 88180, 52934, 08100, 51174, 18739, 68919 #### [facility] [address] [place] [address], [facility] Cholesterol in LDL [Mass/Vol] 28 mg/dL Normal 0-130 [facility] Comment on above: Result Comment: LDL IS A CALCULATION LDL IS ONLY VALID IF THE TRIG IS LESS THAN 400. Performed By: #### 0 0121, 37179, 23083, 09375, 22300, 59933, 84111, 35035 #### [facility] [address] [place] [address], [facility] Cholesterol.total/Chol esterol in HDL [Mass ratio] 1.9 {ratio} Normal .0-4.5 [facility] Comment on above: Performed By: #### 0 0121, 77591, 55150, 03669, 54726, 94443, 65701, 48183 #### [facility] [address] [place] [address], [facility] NON-HDL CHOLESTEROL 37 mg/dL Normal [facility] Comment on above: Performed By: #### 0 0121, 86293, 89616, 99158, 68295, 98858, 68762, 77607 #### [facility] [address] [place] [address], [facility] Triglyceride [Mass/Vol] 44 mg/dL Normal 40-149 [facility] Comment on above: Result Comment: TRIG LYCERIDE REFERENCE RANGE: 20 YEARS AND OLDER CARDIOVASCULAR RISK LESS THAN 150 mg/dl LOW RISK 150 TO 199 mg/dl BORDERLINE RISK 200 mg/dl AND GREATER HIGH RISK Performed By: #### 0 0121, 79633, 56659, 69925, 89385, 45976, 28979, 92768 #### [facility] [address] [place] [address], [facility] VLDL CHOL 9 mg/dL Normal 0-40 [facility] Comment on above: Performed By: #### 0 0121, 77543, 17959, 01432, 48127, 30801, 80622, 06135 #### [facility] [address] [place] [address], [facility] MAGNESIUM BLOODon 02-16-2021 Magnesium [Mass/Vol] 1.5 mg/dL Low 1.9-2.7 [facility] Comment on above: Performed By: #### 4 5506, 39389, 77374, 73248, 52729, 19151 #### [facility] [address] [place] [address], [facility] PHOSPHORUS BLOODon Phosphate [Mass/Vol] 2.4 mg/dL Low 2.5-5.0 [facility] Comment on above: Performed By: #### 0 0121, 89580, 77833, 04956, 29124, 54040, 55952, 24988 #### [facility] [address] [place] [address], [facility] PROSPERAon 02-16-2021 PROSPERA KIT Results to be mailed directly to physician's office by reference lab. Normal [facility] Comment on above: Result Comment: Test performed by [id number] [place] [address] No result expected. For billing and tracking purposes only. Specimen collected for transplant patient and sent to requesting hospital per Dr instructions. No charge. Performed By: #### 4 5506, 05196, 02401, 24560, 26463, 29698 #### [facility] [address] [facility] [place] [address], [facility] RESULT Results to be mailed directly to physician's office by reference lab. Normal [facility] Comment on above: Performed By: #### 4 5506, 09118, 00200, 08342, 49548, 96332 #### [facility] [address] [place] [address], [facility] PTH INTACTon 02-16-2021 PTH INTACT 123 pg/mL High 12-88 [facility] Comment on above: Performed By: #### 4 5506, 35750, 12655, 16625, 44070, 14924 #### [facility] [address] [place] [address], [facility] SINGLE ANTIGEN CLASS 1on METHOD Class I Single Antigen Normal [facility] Comment on above: Order Comment: Some of [...] to frequency. Performed By: #### 4 5506, 06922, 39796, 61697, 43632, 12463 #### [facility] [address] [facility]. [address] SINGLE ANTIGEN CLASS 2on COMMENTS Normal [facility] Comment on above: Order Comment: Some of [...] Antigen Microbeads Performed By: #### 4 5506, 35543, 17813, 65767, 60686, 60910 #### [facility] [address] [place] [address], [facility] Result Comment: No C lass I donor specific antibody identified Class I Antigen Microbeads METHOD Class II Single Antigen Normal [facility] Comment on above: Order Comment: Some of [...] to frequency. Performed By: #### 4 5506, 72335, 78498, 03248, 63762, 73940 #### [facility] [address] SIGNED BY Normal [facility] Comment on above: Order Comment: Some of [...] frequency. Result Comment: Jose A Lara MS,CHT(IRINEO),MT(ASCP) Welding Machine Operator [employer], Transplant Immunology Performed By: #### 4 5506, 26475, 41899, 67309, 01024, 60822 #### [facility] [address] TACROLIMUSon 02-16-2021 Tacrolimus (Bld) [Mass/Vol] 7.0 ng/mL Normal 5.0-20.0 [facility] Comment on above: Result Comment: The [employer] DANCING [employer] Tacrolimus assay is a delayed one-step immunoassay for the quantitative determination of tacrolimus in human whole blood using the chemiluminescent microparticle immunoassay (CMIA) technology with flexible assay protocols, referred to as Chemiflex. Performed By: #### 4 5506, 54273, 43340, 54607, 82833, 63010 #### [facility] [address] TESTOSTERONE, FREE+SHBG+TOTA L ILon 02-16-2021 [place] Normal [facility] Comment on above: Result Comment: Test Performed by [employer] [address] [place] [address] - Released 02/16/2021 18:49 SEX HORM BIND GLOB 52 nmol/L Normal 11-80 [facility] Testosterone [Mass/Vol] 399 ng/dL Normal 220-1000 [facility] TESTOSTERONE, FREE 60.0 pg/mL Normal 47-244 [facility] Comment on above: Result Comment: The concentration of free testosterone is derived from a mathematical expression based on the constant for the binding of testosterone to albumin and/or sex hormone binding globulin. URIC ACID BLOODon 02-16-2021 Urate [Mass/Vol] 8.0 mg/dL High 4.4-7.6 [facility] Comment on above: Performed By: #### 0 0121, 83648, 74662, 04616, 43288, 94218, 57497, 56901 #### [facility] [address] VITAMIN D 25-HYDROXYon 02-16 VITAMIN D 25-OH 35.1 ng/mL Normal 30.0-80.0 [facility] Comment on above: Result Comment: >80. 0 Toxicity possible Performed By: #### 4 5506, 84103, 02933, 41669, 59428, 09651 #### [facility] [address] Vital Signs Date Time Vital Sign Value Performing Clinician Facility 02-16-2024 08:040 Body height 167.6 cm Jericho Mccarthy MD Work Phone: [facility] 02-16-2024 08:190400 Body mass index (BMI) [Ratio] 24.37 kg/m2 Jericho Mccarthy MD Work Phone: [facility] 02-16-2024 08:19040 Body temperature 97.5 [degF] Jericho Mccarthy MD Work Phone: [facility] 02-16-2024 08:040 Body weight 68.49 kg Jericho Mccarthy MD Work Phone: [facility] 02-16-2024 08:19040 Diastolic blood pressure 60 mm[Hg] Jericho Mccarthy MD Work Phone: [facility] 02-16-2024 08:19040 Heart rate 57 /min Jericho Mccarthy MD Work Phone: [facility] 02-16-2024 08:19-0400 Respiratory rate 18 /min Jericho Mccarthy MD Work Phone: [facility] 02-16-2024 08:19-0400 SaO2% (BldA) [Mass fraction] 98 % Jericho Mccarthy MD Work Phone: [facility] 02-16-2024 08:19-0400 Systolic blood pressure 120 mm[Hg] Jericho Mccarthy MD Work Phone: [facility] 03-05-2022 09:30-0400 Diastolic blood pressure 74 mm[Hg] MD Jericho Mccarthy Work Phone: [facility] 03-05-2022 09:30-0400 Heart rate 58 /min MD Jericho Mccarthy Work Phone: [facility] 03-05-2022 09:30-0400 Respiratory rate 18 /min MD Jericho Mccarthy Work Phone: [facility] 03-05-2022 09:30-0400 SaO2% (BldA) [Mass fraction] 99 % MD Jericho Mccarthy Work Phone: [facility] 03-05-2022 09:30-0400 Systolic blood pressure 133 mm[Hg] MD Jericho Mccarthy Work Phone: [facility] 03-05-2022 07:01-0400 Body height 167.64 cm MD Jericho Mccarthy Work Phone: [facility] 03-05-2022 07:01-0400 Body temperature 97.9 [degF] MD Jericho Mccarthy Work Phone: [facility] 03-05-2022 07:01-0400 Body weight 74.84 kg MD Jericho Mccarthy Work Phone: [facility] 01-21-2022 10:30-0400 Body height 167.64 cm Tj Rao Other [employer] Other 01-21-2022 10:30-0400 Body mass index (BMI) [Ratio] 26.47 kg/m2 Tj Rao Other [employer] Other 01-21-2022 10:30-0400 Body weight 74.39 kg Tj Rao Other [employer] Other 01-21-2022 10:30-0400 Diastolic blood pressure 71 mm[Hg] Tj Rao Other [employer] Other 01-21-2022 10:30-0400 Systolic blood pressure 148 mm[Hg] Tj Rao Other [employer] Other Encounters Encounter Date Encounter Type Care Provider Facility Start: 09-30-2024 End: 09-30-2024 Clinisync Result Encounter Generic External Data Provider [facility] Unsolicited Start: 09-30-2024 End: 09-30-2024 Clinisync Result Encounter Generic External Data Provider [facility] External [facility] Unsolicited Start: 06-18-2024 End: 06-18-2024 [facility] Start: 06-09-2024 End: 06-09-2024 ambulatory AZEB LEE [facility] Start: 06-04-2024 End: 06-04-2024 Clinisync Result Encounter [...] FM Comment on above: Type 2 diabetes ruab itus with hyperglycemia, with long-term current use of insulin (CMS/HCC) (Primary Dx); Essential hypertension, benign (CMS/HCC); Peripheral vascular disease (CMS/HCC); Type 2 diabetes mellitus with diabetic chronic kidney disease (CMS/HCC); Chronic kidney disease, stage 2 (mild); Type 2 diabetes mellitus with diabetic peripheral angiopathy without gangrene (CMS/HCC) Start: 02-16-2024 End: 02-16-2024 ambulatory JERICHO MCCARTHY Not Available Start: 02-11-2024 End: 02-11-2024 ambulatory SANTANA [facility] Start: 02-06-2024 End: 02-06-2024 Clinisync Result Encounter Generic External Data Provider [facility] External Department Unsolicited Start: 02-06-2024 End: 02-06-2024 Clinisync Result Encounter Generic External Data Provider [facility] External Department Unsolicited Start: 02-02-2024 End: 02-02-2024 Bamboo flowsheet Rajesh Gaines MD Work Phone: [facility] Start: 02-02-2024 End: 02-02-2024 Aminah flowscristobal Gaines MD Work Phone: [facility] [...] Data Provider [facility] External [facility] Unsolicited Start: 08-25-2023 End: 08-25-2023 ambulatory JERICHO MCCARTHY [...] Start: 04-03-2022 End: 04-04-[address] ALVAREZ MISImani Facility:[facility] Start: 03-08-2022 End: 03-09-[address] SHAINA SUBRAMANIAN Facility:[facility] Start: 03-05-2022 End: 03-05-2022 ambulatory Tj Rao Facility:[facility] Start: 03-05-2022 End: 03-05-2022 Admission to same day surgery center MD Jericho Mccarthy Work Phone: [facility] Start: 03-05-2022 End: 03-05-2022 ambulatory MD Jericho Mccarthy Work Phone: [facility] Work Phone: Start: 03-01-2022 End: 03-01-2022 ambulatory Tj Rao Facility:[facility] Start: 03-01-2022 End: 03-01-2022 ambulatory MD Jericho Mccarthy Work Phone: [facility] Work Phone: Start: 03-01-2022 End: 03-01-2022 Patient encounter procedure MD Jericho Mccarthy Work Phone: [facility] Start: 02-01-2022 End: 02-02-[address] DOCTOR MCCABE Facility:[facility] Start: 01-21-2022 End: 01-21-2022 ambulatory Tj Rao Other [employer] Other Start: 01-21-2022 Office outpatient ne w 45 minutes Tj Rao [facility] Gastro[facility]ology Start: 01-04-2022 End: 01-05-[address] SHAINA SUBRAMANIAN Facility:[facility] Start: 11-30-2021 End: 12-01-[address] DOCTOR MCCABE Facility:[facility] Start: 11-14-2021 End: 11-14-[address] JERICHO MCCARTHY Facility:[facility] Procedures Date Procedure Procedure Detail Performing Clinician Start: 09-30-2024 ALL CBC WITH AUTO DIFF Generic External Data Provider Start: 06-04-2024 ALL CBC WITH AUTO DIFF [...] Screening for malign ant neoplasm of colon [facility] Start: 07-08-2027 Screening for malign ant neoplasm of colon [facility] Start: 11-25-2025 Glaucoma screening Diabetes: R etinopathy Screening [facility] Start: 08-10-2025 Urine screening for protein Diabetes: Urine Protein Screening [facility] Comment on above: Postponed from 07/09 (Other Medical Reasons) Postponed from 12/15 (Other Medical Reasons) Start: 02-03-2025 End: 02-03-2025 Patient encounter procedure 02/03/2025 9:00 AM EDT Office Visit [facility] [address] [place] [id number] Rajesh Gaines MD [address] [place] [address] [facility] Start: 01-10-2025 Influenza vaccination Influenz a Vaccine (Season Ended) [facility] Start: 08-05-2024 Hemoglobin A1c measurement Diabetes: Hemoglobin A1C [facility] Start: 03-11-2024 End: 03-11-2024 Patient encounter procedure 03/11/2024 9:15 AM EDT Office Visit [facility] [address] [place] [id number] Jericho Mccarthy MD [address] [place] [id number] [facility] Start: 02-16-2024 End: 02-16-2024 Patient encounter procedure [facility] Comment on above: Arrived Start: 02-02-2024 End: 02-02-2024 Patient encounter procedure [facility] Comment on above: Arrived Start: 01-11-2024 Influenza vaccination Influenza Vacc ine (#1) [facility] Start: 10-07-2023 Hemoglobin A1c measurement Diabetes: Hemoglobin A1C [facility] Start: 03-05-2022 [facility] Start: 01-31-2017 Pneumococcal Vaccine : 65+ Years (2 of 2 - PCV) Pneumococcal Vaccine: 65+ Years (2 of 2 - PCV) [facility] Start: 1950 Medicare Annual Wellness (AWV) Medicare Annual Wellness (AWV) [facility] Start: 1950 Screening for malign ant neoplasm of colon [facility] Patient Education [facility] Work Phone: Immunizations Immunization Date Immunization Notes Care Provider Fa cili 02-18-2023 Influenza, High-dose Seasonal, Quadrivalent, Preservative Free Generic Provider [facility] 02-18-2023 influenza virus vaccine, unspecified formulation Generic Provider [facility] 04-30-2021 COVID-19 mRNA Bivale nt Booster (Pfizer) MD Jericho Mccarthy Work Phone: [facility] 04-30-2021 Influenza, Seasonal, Quadrivalent, Adjuvanted Generic Provider [facility] 08-01-2020 COVID-19 mRNA, Comirnaty (Pfizer) MD Jericho Mccarthy Work Phone: [facility] 07-12-2020 COVID-19 mRNA, Comirnaty (Pfizer) MD Jericho Mccarthy Work Phone: [facility] 02-09-2019 influenza, injectabl e, quadrivalent, contains preservative Generic Provider [facility] 02-13-2017 influenza, seasonal, injectable Tj Rao Other [employer] Other 02-09-2017 influenza virus vaccine, unspecified formulation Generic Provider [facility] 06-27-2016 influenza, seasonal, injectable Tj Rao Other [employer] Other 02-01-2016 pneumococcal polysaccharide vaccine, 23 valent Tj Rao Other [employer] Other Payers Date Payer Category Payer Private Health Insurance [id number] 2022 Private Health Insurance [id number] 2022 Unknown [employer] [id number] 2022-Present [id number] [place] [place] [address] [id number] 2022 Self-pay [id number] 2022 Unknown [id number] 2009 Medicare [id number] 1959 Medicare [id number] 1959 Private Health Insurance [id number] [id number] 1951 Unknown [id number] 2.16.840.1.705740.3.579.2 .593 1951 Unknown [id number] 2.16.840.1.442575.3.579.2 .593 1951 Unknown [id number] 2.16.840.1.501019.3.579.2 .593 1951 Unknown [id number] 2.16.840.1.841577.3.579.2 .593 1951 Unknown [id number] 2.16.840.1.828825.3.579.2 .593 1951 Unknown [id number] 2.16.840.1.218700.3.579.2 .593 1951 Unknown [id number] 2.16.840.1.642459.3.579.2 .593 1951 Unknown [id number] 2.16.840.1.617248.3.579.2 .593 1951 Unknown [id number] 2.16.840.1.474624.3.579.2 .593 1951 Unknown [id number] 2.16.840.1.207605.3.579.2 .593 1951 Unknown [id number] 2.16.840.1.952684.3.579.2 .593 1951 Unknown [id number] 2.16.840.1.812727.3.579.2 .593 1951 Unknown [id number] 2.16.840.1.806792.3.579.2 .1259 1951 Unknown [id number] 2.16.840.1.977744.3.579.2 .1259 1951 Unknown [id number] 2.16.840.1.471195.3.579.2 .1259 1951 Unknown [id number] 2.16.840.1.003469.3.579.2 .1259 Unknown [id number] 2.16.840.1.069911.3.579.2 .531 Unknown [id number] 2.16.840.1.326434.3.579.2 .531 Social History Date Type Detail Facility Unknown if ever smoked [employer] Other Start: 02-02-2024 End: 02-16-2024 Sex Assigned At [facility] Other Start: 11-11-2019 End: 04-15-2023 Tobacco smoking status [facility] Ex-smoker (finding) [facility] Start: 1950 Sex Assigned At Male [facility] Start: 05-12-1980 End: 05-12-1992 History of tobacco use Current smoker [facility] Start: 05-12-1980 End: 05-12-1992 History of tobacco use Cigarette Smoker [facility] Start: 04-15-2023 Tobacco use and exposure Smokeless tobacco non-user [facility] Start: 02-02-2024 End: 02-16-2024 History of Social function [facility] Start: 1950 Sex assigned at Not on file [facility] Medical Equipment Procedure Code Equipment Code Equipment Original Text Equipment Identifier Dates Creation or revision of arteriovenous fistula GRAFT ARTEGRAFT 6MM X 40CM FDA Start: 01-14-2017 Creation or revision of arteriovenous fistula GRAFT ARTEGRAFT 6MM X 40CM FDA Start: 01-14-2017 Goals Date Patient Goal Desired Activity /State Clinical Notes 09-09-2009 to 09-07-2024 Jreicho Mccarthy MD - 02/16/2024 8:49 AM Donna Mccarthy MD - 02/16/2024 8:49 AM Donna Mccarthy MD - 02/16/2024 8:48 AM Donna Mccarthy MD - 02/16/2024 8:15 AM EDT Note Date & Type Note Facility 09-07-2024 Note Wardrobe Technician called jasson huntley to reschedule appt on 11-11-24 Dr. Benitez will be out of the office. Wardrobe Technician left detailed message. Appointment cancelled. [facility] 06-18-2024 Note Attestation signed by Ananda Pan MD at 06/22/2024 1:41 PM I personally saw and examined the patient on the same date of service as resident/fellow Baron Nguyen MD. I discussed the findings and therapeutic plan with the Baron Nguyen MD. I agree with the documentation, except for any edits/updates below. Ananda Pan MD Faculty, Division of Nephrology, Department of Medicine, [facility]. Nephrology Transplant Clinic [...] PROT 6.8 02 (more content not included)... [facility] 06-16-2024 Note After [employer] Program Secure Ch at message from Santana Villegas that he will see pt for FU, this coordinator left a voicemail message for the pt to contact the clinic ([facility]) for his RV time on 06/18/24. [facility] 06-09-2024 Note Patient here for 1 y [...] All other systems reviewed and are negative. [facility] 06-09-2024 Note SUBJECTIVE Roger Kerr is a [...] statin therapy COLD (chronic obstructive lung disease) ([facility]/HCC) Essential hypertension, benign Pleurisy with effusion Polycystic kidney DAVID (acute kidney injury) ([facility]) Hypomagnesemia Anemia of renal disease Basal cell carcinoma (BCC) of dorsum of nose Chronic heart failure with preserved ejection fraction (HFpEF) ([facility]) Type 2 diabetes mellitus with hyperglycemia, with long-term current use of insulin ([facility]) family history includes ALS in his brother; [...] not crush, c (more content not included)... [facility] 06-04-2024 Note Reviewed over the ph one with Dr. Martines patients mag 1.4. To make sure patient is consistently taking his mag. Spoke to patient who said he will work on it, he has issues with diarrhea while on it. He will try Maalox and call us if diarrhea is not improved. [facility] 04-13-2024 Note Patient called reque sting refill on Furosamide. Patient was informed rx was discontinued in Jan by Santana. [facility] 02-16-2024 History of Present illness Narrative Associated Problem(s): Peripheral vascular disease (CMS/HCC) Follow with specialists. Associated Problem(s): Type 2 diabetes mellitus with hyperglycemia, with long-term current use of insulin (CMS/HCC) BS controlled and at times low. A1C 5.6 and decrease basaglar to 15 units daily. Stick to ADA diet and limit carbs. Associated Problem(s): Essential hypertension, benign ([facility]/HCC) BP controlled and monitor PRN. Images from [...] 100 UNIT/ML pen documented in this encounter [facility] 02-11-2024 Note Transplant Clinic Patient : Roger [...] finger stick at home. On 05/14/[address] Root: pt to consistently take Mag supplement and restart Amlodipine and continue amiloride for low Mag. Pt inpatient 04/27/23 to 04/30/23 for DAVID/Hyponatrimea nd uncontrolled DM. Pt seeing PCP who treats DM next week. Instructed patient to consider Planer Feeder locally to him: quan del castillo. Pt [...] CL 93 (L) more content not included)... [facility] 02-02-2024 History of Present illness Narrative Skin [...] Visit: 1 year documented in this encounter [facility] 01-19-2024 Note Mg 1.2 reviewed with PRUDENCIO Chou. Patient was previously refusing infusion for Magnesium and note from visit 10/30 was not complete. Per PRUDENCIO Chou on [employer] Program secure chat patient is to be on Amiliride 5mg daily, take Maalox and Mylanta with Mg. Phone call to patient who had stopped Amiliride in error and has been continuing to take Amlodipine which was discontinued. Patient requested script for Amiliride to be sent to [facility] in [place]. Reviewed magnesium rich foods with patient. Patient also states he is taking 2400 mg of magnesium daily. Instructed patient to get repeat labs this month. Patient verbalizes understanding. Also mailed standing lab order for monthly BK to patient to have added to standing labs. [facility] 03-05-2022 Procedure note [facility] 01-21-2022 Evaluation note Encounter Date Diagnosis Assessment Notes Jan, Diarrhea (ICD-10 - R19.7) Colonoscopy Okay to take Imodium - 1 tablet every morning Jan, Fecal urgency (ICD-10 - R15.2) [employer] Other 05-01-2010 History general Narrative - Reported* [...] Center) 02/2018 Hospitalization History pulmonary embolism 0 [employer] Other Evaluation noteNo assessment information available [facility] Work Phone: Evaluation note* Diagnosis Onset Date Resolution Status Diarrhea acute [facility] Work Phone: Evaluation note* Diagnosis Type [...] without gangrene (CMS/HCC) documented in this encounter [facility] HealthcareEvaluation note* Diagnosis Sebaceous hyperplasia of face- Primary History of basal cell carcinoma Personal history of other malignant neoplasm of skin Lentigines documented in this encounter [facility] HealthcareHospital Discharge instructions Additional Instructions DISCHARGE INSTRUCTIONS [...] if you have any problems. -Office number [phone] Work Phone: Reason for visit NarrativePATIENT REFERRED BY DR. MCCARTHY FOR EVALUATION AND TREATMENT OF [place] [employer] Other Summary Purpose Family History No Family [...] section and content) DATE CREATED AUTHOR [facility]/2019 [facility] DATE CREATED AUTHOR AUTHOR'S ORGANIZ ATION 11/02/2021 [facility] DATE CREATED AUTHOR AUTHOR'S ORGANIZ ATION 03/12/2022 [facility] DATE CREATED AUTHOR AUTHOR'S ORGANIZ ATION 10/18/2022 [facility] DATE CREATED AUTHOR AUTHOR'S ORGANIZ ATION 02/16/2024 [facility] d[facility] Specialists EPIC DATE CREATED AUTHOR AUTHOR'S ORGANIZ ATION 11/25/[address] [facility] Care Teams (unrecognized sec tion and content) Team Status: Inactive Member Role Status Dates Jericho Mccarthy MD Primary Care Provider Active Tj Rao MD Attending Provider Active Team Status: Active Member Role Status Dates Jericho Mccarthy MD Primary Care Provider Active Tv News Director Relationship Specialty Start Date End Date Jericho Mccarthy MD [address] [place] [address] PCP - General Family Medicine 08/25/23 Tv News Director Relationship Specialty Start Date End Date Jericho Mccarthy MD [address] [place] [address] PCP - General Family Medicine 08/25/23 Tv News Director Relationship Specialty Start Date End Date Jericho Mccarthy MD [address] [place] [address] PCP - General Family Medicine 08/25/23 Tv News Director Relationship Specialty Start Date End Date Jericho Mccarthy MD [address] [place] [address] PCP - General Family Medicine 08/25/23 Tv News Director Relationship Specialty Start Date End Date Jericho Mccarthy MD [address] [place] [address] PCP - General Family Medicine 08/25/23 Goals [...] BE BASED ON THE PRIMARY CLINICAL RECORDS. [employer] provides no warranty or guarantee of the accuracy or completeness of information in this document.
--- OUTSIDE RECORDS SUMMARY | 2024-12-01 07:07 | XMS_ITS | Encounter Summary ---
Author Organization [facility] Address [address] [place] [address] Care Team Providers Care Char Belt Operator Name Role Phone Jericho Centeno MD Primary Care Provider [phone] Reason for Visit * Reason Comments Med Refill Encounter Details Date Type Department Care Team (Late st Contact Info) Description 08/05/2024 Refill [facility] [address] [place] [address] Jericho Centeno MD [address] [place] [address] Type 2 diabetes mellitus with hyperglycemia, with long-term current use of insulin (HCC) Social History Tobacco Use Types Packs/Day Years [...] 08/05/2024 11:55 AM EDT MEDICATION SENT TO [facility] documented in this encounter Plan of Treatment Upcoming Encounters Date Type Department Care Team (Late st Contact Info) Description 02/03/2025 9:00 AM EDT Office Visit [facility] [address] [place] [phone] Ashley Traore MD [address] [place] [address] documented as of this encounter Visit Diagnoses Diagnosis Type 2 diabetes mellitus with hyperglycemia, with long-term current use of insulin (HCC) documented in this encounter Care Teams Char Belt Operator Relationship Specialty Start Date End Date Jericho Centeno MD [address] [place] [address] PCP - General Family Medicine 08/25/23 documented as of this encounter
--- OUTSIDE RECORDS SUMMARY | 2024-12-01 07:07 | XMS_ITS | Encounter Summary ---
Author Organization [facility] Address [address] [place] [address] Care Team Providers Care Aerial Hurricane Hunter Name Role Phone Jericho Centeno MD Primary Care Provider [phone] Jericho Abad FIBER OPTIC ASSEMBLER Unavailable [phone] Reason for Visit * Reason Comments Med Refill Encounter Details Date Type Department Care Team (Late st Contact Info) Description 05/29/2023 Refill [facility] Transplant [address] [place] [phone] Woodrow Root MD [address] [place] [address] Aftercare following organ transplant Social History Tobacco [...] Recorded Patient Health Questionnaire-2 Score 0 05/19/2023 Stateless [place] [facility] - Occupational Stress [...] place to sleep or slept in a assisted (including now)? No 04/27/2023 Hunger Vital Sign [...] documented as of this encounter Functional Status * Are you deaf or do you have serious difficulty hearing? Answer Date of Assessment Author No 04/30/2023 10:46 AM Blanca Knowles RN * Are you blind or do you have serious difficulty seeing, even when wearing glasses? Answer Date of Assessment Author No 04/30/2023 10:46 AM Blanca Knowles RN * Do you have serious difficulty walking or climbing stairs? Answer Date of Assessment Author No 04/30/2023 10:46 AM Blanca Knowles RN * Do you have serious difficulty dressing or bathing? Answer Date of Assessment Author No 04/30/2023 10:46 AM Blanca Knowles RN * Because of a physical, mental, or emotional condition, do you have serious difficulty doing errandsalone such as visiting the doctor? Answer Date of Assessment Author No 04/30/2023 10:46 AM Blanca Knowles RN documented as of this encounter Mental Status * Because of a physical, mental, or emotional condition, do you have serious difficulty concentrating, remembering, or making decisions? (5 years old or older) Answer Entry Date Author No 04/30/2023 10:46 AM Blanca Knowles RN documented in this encounter Plan of Treatment Upcoming Encounters Date Type Department Care Team (Late st Contact Info) Description 12/02/2024 1:45 PM EDT Follow-Up [facility] Transplant [address] [place] [address] Jessica Fields CNP [address] [facility] [address] [place] [address] documented as of this encounter Visit Diagnoses Diagnosis Aftercare following organ transplant documented in this encounter Care Teams Aerial Hurricane Hunter Relationship Specialty Start Date End Date Jericho Centeno MD [address] [place] [address] PCP - General 01/29/22 Jericho Abad CNP [address] [place] [address] Nurse Practitioner Urology 04/16/22 documented as of this encounter
--- OUTSIDE RECORDS SUMMARY | 2024-12-01 07:07 | XMS_ITS | Encounter Summary ---
Author Organization [facility] Address [address] [place] [address] Care Team Providers Care Laboratory Specialist Name Role Phone Jericho Centeno MD Primary Care Provider [phone] Encounter Details Date Type Department Care Team [...] Office Visit [facility] [address] [facility] [address] [place] [address] Ashley Traore MD [address] [facility] [address] [place] [address] documented as of this encounter Procedures Procedure Name Priority Date/Time Associated Diagnosis Comments CA ECHO DOPPLER COMPLETE 03/23/2024 10:39 AM EST documented in this encounter Results * CA ECHO DOPPLER COMPLETE (03/23/2024 10:39 AM EST) Anatomical Region Laterality Modality Other 03/23/2024 10:3 9 AM EST Narrative 03/23/2024 10:40 AM EST The [address] [address] Cardiology Report Signed Patient: ROGER SUAREZ MR#: [id number] : 1950 Acct:[id number] Age/Sex: 73 / M ADM Date: 03/23/24 Loc: CARD Attending Dr: BENJA MCGHEE Ordering Physician: BENJA MCGHEE Date of Service: 03/23/24 Procedure(s): CA echo doppler complete Accession Number(s): [id number] cc: BENJA MCGHEE; Jericho Centeno M.D. Patient Name: ROGER SUAREZ MR#: [id number] : 1950 Exam Date: 03/23/2024 Ordering Doctor: [...] Area (VTI): 2.50 cm2, 2.50 cm2 Deceleration Hardy: 0.67 m/s2 Pressure Half-Time: 1.17 s Peak [...] Signed By: 03/23/24 1040 DD/ 1039 TD/TT: Pipeline Welder: Procedure Note Radiology, Radiologist, MD - 03/23/2024 [place] [address] Cardiology Report Signed Patient: ROGER SUAREZ EMR#: [id number] : 1950cct:[id number] Age/Sex: 73 / MADM Date: 03/23/24 Loc: CARD Attending Dr: BENJA MCGHEE Ordering Physician: BENJA MCGHEE Date of Service: 03/23/24 Procedure(s): CA echo doppler complete Accession Number(s): [id number] cc: BENJA MCGHEE; Jericho Centeno M.D. Patient Name: ROGER SUAREZ MR#: [id number] : 1950 Exam Date: 03/23/2024 Ordering Doctor: [...] Area (VTI): 2.50 cm2, 2.50 cm2 Deceleration Hardy: 0.67 m/s2 Pressure Half-Time: 1.17 s Peak [...] MCGHEE Signed By:03/23/24 1040 DD/ 1039 TD/TT: Pipeline Welder: us Generic External Data Provider [facility] Final Result documented in this encounter Visit Diagnoses Not on filedocumented in this encounter Care Teams Laboratory Specialist Relationship Specialty Start Date End Date Jericho Centeno MD [address] [place] [address] PCP - General Family Medicine 08/25/23 documented as of this encounter
--- OUTSIDE RECORDS SUMMARY | 2024-12-01 07:07 | XMS_ITS | Clinical Summary ---
Author Organization [facility] Address [address] [place] [address] Care Team Providers Care Flute Grinder Name Role Phone Jericho Centeno MD Primary Care Provider [phone] Allergies Active Allergy Reactions Criticality Noted Date [...] hyperglycemia, without long-term current use of insulin ([facility]) TAKE 1 TABLET BY MOUTH TWICE DAILY WITH BREAKFAST AND WITH DINNER 300 tablet 2 4 Active Basaglar KwikPen 100 UNIT/ML penIndications :Type 2 diabetes mellitus with hyperglycemia, with long-term current use of insulin (HCC) INJECT 20 UNITS SUBCUTANEOUSLY (UNDER THE SKIN) [...] Encounters Date Type Department Care Team Description 10/19/2024 Refill [facility] [address] [place] [address] Jericho Centeno MD Type 2 diabetes mellitus with hyperglycemia, with long-term current use of insulin ([facility]) 09/30/2024 Clinisync Result Encounter [facility] External Department Unsolicited [...] [address] [place] [address] Ashley Traore MD [address] [place] [address] Health Maintenance Due Date Last Done Comments CT Colonography 1950 Colonoscopy 1950 Colorectal Cancer Screening 1950 FIT-DNA 1950 FIT 1950 FOBT 1950 Medicare Annual Wellness (AWV) 1950 Sigmoidoscopy 1950 Pneumococcal Vaccine: 65+ Years (2 of 2 - PCV) 01/31/2017 02/01/2016 Diabetes: Hemoglobin A1C 08/05/2024 024, 07/09/2023, 07/09/2023, Additional history exists Influenza Vaccine (#1) 2025 3, 04/30/2021, 02/09/2019, Additional history exists Diabetes: Urine Protein Screening 08/10/2025 Postponed from 12/15/1970 (Other Medical Reasons) Diabetes: Retinopathy Screening 11/25/2025 11/26/2023 Procedures Procedure Name Priority Date/Time Associated Diagnosis Comments SRMCOH TESTOSTERONE FREE/TOT EQUILIB Routine 09/30/2024 7:28 AM EDT METRO SEX BINDING HORMONE (SHBG), TESTOSTERONE, FREE AND BIOAVAILABLE Routine 09/30/2024 7:28 AM EDT TACROLIMUS (FK506), BLOOD Routine 09/30/2024 7:28 AM EDT BKV QUANT PCR Routine 09/30/2024 7:28 AM EDT MLR HEMOGLOBIN A1C Routine 09/30/2024 7: 28 AM EDT METRO BILIRUBIN, DIRECT Routine 09/30/2024 7:28 AM EDT ALL MAGNESIUM Routine 09/30/2024 7:28 AM EDT ALL PHOSPHOROUS Routine 09/30/2024 7:28 AM EDT ALL URIC ACID Routine 09/30/2024 7:28 AM EDT [facility] CMP (CMP) (FOR REMOTE [facility] USE) Routine 09/30/2024 7:28 AM EDT ALL LIPID PROFILE (FASTING) Routine 09/30/2024 7:28 AM EDT ALL CBC WITH AUTO DIFF Routine 09/30/2024 7:28 AM EDT from Last 3 Months Results * BKV QUANT PCR (09/30/2024 7:28 AM EDT) Pathologist [facility] BKV DNA, QUANT PCR, PLASMA Negative Negative IU/mL [facility] Comment: No BK DNA detected. The linear range of the assay is 22 - 100,000,000 IU/mL. Performed at: [address] [id number] Manager Beverage: Marbin Mccormick MD, Phone: [phone] LOG10 BKV DNA,PLASMA TNP . [facility] 09/30/2024 7:28 AM EDT 09/30/2024 7:29 AM EDT Narrative CARL[facility] - 10/02/2024 11:08 AM EDT us Generic External Data Provider LAB BLOOD ORDERAB LES Final Result [facility] * TACROLIMUS (FK506), BLOOD (09/30/2024 7:28 AM EDT) Pathologist [facility] TACROLIMUS (FK506), BLOOD 5.6 5.0 - 20.0 ng/mL [facility] Comment: This test was developed and its performance characteristics determined by [facility]. It has not been cleared or approved by the Food and Drug Administration. Target steady state trough concentration for Tacrolimus varies based on type of organ transplant immunosuppressive protocol and other patient specific factors. Tacrolimus trough concentrations should be interpreted in conjunction with clinical assessments of rejection and tolerability. Values obtained with different assay methods cannot be used interchangeably due to differences in assay methods and cross-reactivty with metabolites, nor should correction factors be applied. Therefore, consistent use of one assay for individual patients is recommended. Detection Limit = 0.5 ng/mL Performed by LC-MS/MS technology. Performed at: [address] [id number] Manager Beverage: Marbin Mccormick MD, Phone: [phone] 09/30/2024 7:28 AM EDT 09/30/2024 7:29 AM EDT Narrative [facility] - 10/04/2024 5:10 AM EDT Generic External Data Provider LAB BLOOD ORDERAB LES Final Result Performing Organization Address [facility] Co de Phone Number [facility] * SRMCOH TESTOSTERONE FREE/TOT EQUILIB (09/30/2024 7:28 AM EDT) [facility] TESTOSTERONE 622 264 - 916 ng/dL [facility] Comment: Adult male reference interval is based on a population of healthy nonobese males (BMI <30) between 19 and 39 years old. Steven et.al. JCEM 2017,102;5466-1846. PMID: [id number]. FREE TESTOSTERONE(DIRE CT) 11.3 6.6 - 18.1 pg/mL TB Comment: Performed at: [address] [id number] Manager Beverage: Toby Daley PhD, Phone: [phone] Performed at: [address] [id number] Manager Beverage: Marbin Mccormick MD, Phone: [phone] 09/30/2024 7:28 AM EDT 09/30/2024 7:29 AM EDT Narrative CLIN[facility]NC - 10/04/2024 5:10 AM EDT Generic External Data Provider [facility] F inal Result Performing Organization Address [facility] de Phone Number [facility] * MLR HEMOGLOBIN A1C (09/30/2024 7:28 AM EDT) Pathologist [facility] GLYCOHEMOGLOBIN A1C 6.2 4.5 - 6.2 % [facility] Comment: ADA RECOMMENDED LIMIT 4.0 - 6.0 ADA THERAPEUTIC TARGET < 7.0 ACTION SUGGESTED > 7.0 ESTIMATED AVERAGE GLUCOSE 131 mg/dL TB 09/30/2024 7:28 AM EDT 09/30/2024 7:29 AM EDT Narrative CLIN[facility]YNC - 09/30/2024 8:34 AM EDT Generic External Data Provider NADEEMVT [facility] Result Performing Organization Address [facility] de Phone Number [facility] * METRO SEX BINDING HORMONE (SHBG), TESTOSTERONE, FREE AND BIOAVAILABLE (09/30/2024 7:28 AM EDT) Pathologist [facility] SEX HORM BINDING GLOB, SERUM 67.9 19.3 - 76.4 nmol/L [facility] Comment: Performed at: - [facility] [id number] Manager Beverage: Toby Daley PhD, Phone: [phone] 09/30/2024 7:28 AM EDT 09/30/2024 7:29 AM EDT Narrative CLINISYNC - 10/04/2024 5:10 AM EDT Generic External Data Provider CLINIS[facility]NC F community health Result Performing Organization Address [facility] de Phone Number [facility] * METRO BILIRUBIN, DIRECT (09/30/2024 7:28 AM EDT) Pathologist [facility] BILIRUBIN DIRECT 0.1 0.0 - 0.2 mg/dL TB 09/30/2024 7:28 AM EDT 09/30/2024 7:29 AM EDT Narrative CLINISYNC - 09/30/2024 8:00 AM EDT Generic External Data Provider CLINISYNC F inal Result [facility] * (ABNORMAL) [facility] CMP (CMP) (FOR REMOTE [facility] USE) (09/30/2024 7:28 AM EDT) SODIUM 141 136 - 145 mmol/L [facility] POTASSIUM 5.1 3.5 - 5.1 mmol/L [facility] CHLORIDE 105 98 - 107 mmol/L TBH CARBON DIOXIDE 27.6 21.0 - 32.0 mmol/L TB[facility] ANION GAP 13.5 TBH GLUCOSE 102 74 - 106 mg/dL [facility] BLOOD UREA NITROGEN 16.0 7.0 - 18.0 mg/dL TB[facility] CREATININE 0.86 0.70 - 1.30 mg/dL TBH TBH EGFR-AF [place] >60 >=60 mL/min/1. 73m 2 TBH TBH EGFR-NON AF [place] >60 >=60 mL/min/1. 73m 2 TBH BUN CREATININE RATIO 18.6 TBH CALCIUM 8.6 8.5 - 10.1 mg/dL TB[facility] BILIRUBIN TOTAL 0.5 0.2 - 1.0 mg/dL TB[facility] ASPARTATE AMINO TRANSFERASE 11(L) 15 - 37 U/L TB[facility] ALANINE AMINOTRANSFERASE 20 16 - 63 U/L TBH ALKALINE PHOSPHATASE 125(H) 46 - 116 U/L TBH TOTAL PROTEIN 6.9 6.4 - 8.2 g/dL TBH ALBUMIN LEVEL 3.9 3.4 - 5.0 g/dL TBH GLOBULIN 3.0 g/dL TBH ALBUMIN GLOBULIN RATIO 1.3 TBH 09/30/2024 7:28 AM EDT 09/30/2024 7:29 AM EDT Narrative CLINISYNC - 09/30/2024 8:00 AM EDT Generic External Data Provider MARIELLEISYNC F inal Result [facility] * ALL URIC ACID (09/30/2024 7:28 AM EDT) URIC ACID 6.3 3.5 - 7.2 mg/dL [facility] 09/30/2024 7:28 AM EDT 09/30/2024 7:29 AM EDT Narrative CLINISYNC - 09/30/2024 8:00 AM EDT Generic External Data Provider CLIN[facility]NC F inal Result Performing Organization Address [facility] Co de Phone Number [facility] * ALL PHOSPHOROUS (09/30/2024 7:28 AM EDT) PHOSPHORUS 2.9 2.6 - 4.7 mg/dL TB 09/30/2024 7:28 AM EDT 09/30/2024 7:29 AM EDT Narrative CLINISYNC - 09/30/2024 8:00 AM EDT Generic External Data Provider CLINISYNC F inal Result Performing Organization Address [facility] de Phone Number [facility] * (ABNORMAL) ALL MAGNESIUM (09/30/2024 7:28 AM EDT) MAGNESIUM 1.3(L) 1.8 - 2.4 mg/dL TB 09/30/2024 7:28 AM EDT 09/30/2024 7:29 AM EDT Narrative CLINISYNC - 09/30/2024 8:00 AM EDT Generic External Data Provider CLINISYNC F inal Result Performing Organization Address [facility] de Phone Number [facility] * ALL LIPID PROFILE (FASTING) (09/30/2024 7:28 AM EDT) TRIGLYCERIDES 31 <=150 mg/dL TBH CHOLESTEROL 80 <=200 mg/dL TB HDL CHOLESTEROL 56 40 - 60 mg/dL TB Comment: > or =60 mg/dl - LOW CARDIOVASCULAR RISK <40 mg/dl - HIGH CARDIOVASCULAR RISK LDL CHOLESTEROL CALCULATED 17.8 mg/dL TB Comment: <100 mg/dl OPTIMAL 100-129 mg/dl NEAR OR ABOVE OPTIMAL 130-159 mg/dl BORDERLINE HIGH 160-189 mg/dl HIGH >190 mg/dl VERY HIGH VLDL CHOLESTEROL 6.2 mg/dL TB CHOL HDL RATIO 1.4 TB Comment: 3.3 - 4.4 LOW RISK 4.4 - 7.1 AVERAGE RISK 7.1 - 11.0 MODERATE RISK >11.0 HIGH RISK 09/30/2024 7:28 AM EDT 09/30/2024 7:29 AM EDT Narrative CLINISYNC - 09/30/2024 8:00 AM EDT us Generic External Data Provider [facility] F inal Result [facility] * (ABNORMAL) ALL CBC WITH AUTO DIFF (09/30/2024 7:28 AM EDT) TB WBC 6.1 4.0 - 11.0 10 3/uL TBH TBH RBC 4.02(L) 4.70 - 6.10 10 6/uL TBH TBH HGB 11.7(L) 14.0 - 18.0 g/dL TB TB HCT 36.3(L) 42.0 - 54.0 % TBH TBH MCV 90.3 80.0 - 94.0 fL TBH TBH MCH 29.1 25.9 - 34.0 pg TBH TBH MCHC 32.2 29.9 - 35.2 g/dL TBH TB RDW 14.1 11.0 - 15.0 % TBH TBH PLT 242 150 - 450 10 3/uL TBH TBH MPV 9.5 9.5 - 13.5 fL TBH NEUTROPHILS PERCENT AUTO 72.1 43.0 - 75.0 % TBH LYMPHOCYTES PERCENT AUTO 16.7(L) 20.5 - 60.0 % TBH MONOCYTES PERCENT AUTO 6.8 1.7 - 12.0 % TBH TBH EO % 3.0 0.9 - 7.0 % TBH BASOPHILS PERCENT AUTO 0.7 0.2 - 2.0 % TBH IMMATURE GRANULOCYTES PCT AUTO 0.7(H) 0.0 - 0.5 % TBH NEUTROPHILS ABSOLUTE AUTO 4.4 1.4 - 6.5 10 3/uL TBH LYMPHOCYTES ABSOLUTE AUTO 1.0(L) 1.2 - 3.8 10 3/uL TBH MONOCYTES ABSOLUTE AUTO 0.4 0.3 - 0.8 10 3/uL TBH TBH EO # 0.2 0.0 - 0.7 10 3/uL TBH BASOPHILS ABSOLUTE AUTO 0.0 0.0 - 0.1 10 3/uL TBH IMMATURE GRANULOCYTES ABS AUTO 0.04(H) 0.00 - 0.03 10 3/uL TBH 09/30/2024 7:28 AM EDT 09/30/2024 7:29 AM EDT Narrative CLINISYNC - 09/30/2024 7:54 AM EDT us Generic External Data Provider CL[facility] F inal Result [facility] TB from Last 3 Months Insurance MEDICARE [facility] [place] [address] Care Teams Flute Grinder Relationship Specialty Start Date End Date Jericho Centeno MD [address] [place] [address] PCP - General Family Medicine 08/25/23
--- OUTSIDE RECORDS SUMMARY | 2024-12-01 07:07 | XMS_ITS | Encounter Summary ---
Author Organization [facility] Address [address] [place] [address] Care Team Providers Care Health Services Coordinator Name Role Phone Jericho Centeno MD Primary Care Provider [phone] Jericho Abad MECHANICAL INSULATOR Unavailable [phone] Reason for Visit * Reason Comments Med Refill Encounter Details Date Type Department Care Team (Late st Contact Info) Description 12/03/2022 Refill [facility] Heart at [facility] [address] [place] [address] Sahil Mcghee MD [address] [facility] [address] [facility] [place] [place] [address] Essential hypertension Social History Tobacco Use Types Packs/Day Years Used Date Smoking Tobacco: Former Cigarettes Smokeless Tobacco: Never Alcohol Use Standard Drinks/Week Comments Not Currently 0 (1 standard drink = 0.6 oz pur e alcohol) PHQ-2 Answer Date Recorded Patient Health Questionnaire-2 Score 0 11/11/2022 [place] [facility] Occupat ional Health - Occupational Stress [...] Info) Description 12/02/2024 1:45 PM EDT Follow-Up [facility] Transplant [address] [place] [address] Jessica Fields CNP [address] [facility] [address] [place] [address] documented as of this encounter Visit Diagnoses Diagnosis Essential hypertension Unspecified essential hypertension documented in this encounter Care Teams Health Services Coordinator Relationship Specialty Start Date End Date Jericho Centeno MD [address] [place] [address] PCP - General 01/29/22 Jericho Abad CNP [address] [place] [address] Nurse Practitioner Urology 04/16/22 documented as of this encounter
--- OUTSIDE RECORDS SUMMARY | 2024-12-01 07:07 | XMS_ITS ---
Author Organization [facility] Address [address] [place] [address] Care Team Providers Care Cloth Bolt Bander Name Role Phone Jericho Centeno MD Primary Care Provider [phone] Jericho Abad BITE BLOCK MAKER Unavailable [phone] Transplant Episode Kidney Recipient [facility] ([place], [place]) - [facility] Organ Received: Kidneys En Bloc Transplanted on 02/26/2020 Marked as Active Follow-up on 02/26/2020 Kidney CoordinatorRadha Interiano RN Phone: N/A Fax: N/A Email: N/A [facility] Organ Diagnosis Organ Primary Contributory Kidney Polycystic [...] RN Kidney Coordinator N/A N/A N/ A Obi MD Jil Surgeon [phone] N/A Events Post-Transplant Pre-Transplant Admitted: 02/26/2020 Referred: 02/01/2010 Transplanted: 02/26/2020 Evaluation began: 1 Discharged: 03/04/2020 [facility] qualified: 07/22/2009 Center waitlisted: 8 Appointments (11/01/2024 - 01/01/2025) When With Visit Type Description 12/02/2024 Transplant - [facility] Follow Up Appointment Dialysis History Dialysis History Start End Type Comments Center 07/22/2009 02/26/2020 Hemo [facility] Information Center Phone Fax Address [facility] [phone] [place] [address], [facility] [id number]
--- OUTSIDE RECORDS SUMMARY | 2024-12-01 07:07 | XMS_ITS | Encounter Summary ---
Author Organization [facility] Address [address] [place] [address] Care Team Providers Care Physiologist Name Role Phone Jericho Centeno MD Primary Care Provider [phone] Jericho Centeno MD Primary Care Provider [phone] Encounter Details Date Type Department Care Team (Late Contact Info) Description 01/30/2023 Abstract [facility] [address] [facility] [address] [place] [address] Ashley Traore MD [address] [facility] [address] [place] [address] Social History Tobacco Use Types Packs/Day Years [...] Office Visit [facility] [address] [facility] [address] [place] [address] Ashley Traore MD [address] [facility] [address] [place] [address] documented as of this encounter Visit Diagnoses Not on filedocumented in this encounter Care Teams Physiologist Relationship Specialty Start Date End Date Jericho Centeno MD PCP - General Family Medicine 03/24/23 08/24/23 Jericho Centeno MD [address] [place] [id number] PCP - General Family Medicine 08/25/23 documented as of this encounter
[2024-12-01 08:02] LABS: Hematocrit 35.9 % (42.0-54.0); Hemoglobin 11.6 g/dL (14.0-18.0); Immature Granulocytes Abs Auto 0.07 10^3/uL (0.00-0.03); Immature Granulocytes Pct Auto 0.9 % (0.0-0.5); Lymphocytes Absolute Auto 0.9 10^3/uL (1.2-3.8); Mean Corpuscular HGB Conc 32.3 g/dL (29.9-35.2); Mean Corpuscular Hemoglobin 29.1 pg (25.9-34.0); Mean Corpuscular Volume 90.0 fL (80.0-94.0); Platelet Count 221 10^3/uL (150-450); Red Blood Count 3.99 10^6/uL (4.70-6.10); White Blood Count 7.7 10^3/uL (4.0-11.0)
[2024-12-01 08:19] LABS: Alanine Aminotransferase 20 U/L (16-63); Albumin Globulin Ratio 1.2; Albumin Level 3.9 g/dL (3.4-5.0); Alkaline Phosphatase 132 U/L (46-116); Anion Gap 13.8; Aspartate Amino Transferase 16 U/L (15-37); Blood Urea Nitrogen 17.0 mg/dL (7.0-18.0); Calcium 8.8 mg/dL (8.5-10.1); Carbon Dioxide 27.4 mmol/L (21.0-32.0); Chloride 103 mmol/L (98-107); Estimated GFR (African America >60 (>=60 mL/min/1.73m^2); Estimated GFR (Non-African Ame >60 (>=60 mL/min/1.73m^2); Globulin 3.2 g/dL; Glucose 97 mg/dL (74-106); Magnesium 1.5 mg/dL (1.8-2.4); Potassium 4.2 mmol/L (3.5-5.1); Sodium 140 mmol/L (136-145); Total Protein 7.1 g/dL (6.4-8.2); Uric Acid 6.5 mg/dL (3.5-7.2)
[2024-12-03 19:07] LABS: Tacrolimus (FK506), Blood 6.1 ng/mL (5.0-20.0)
== END 2024-12-01 07:03 | disposition home or self-care (01) ==
LOC: LAB 07:04
PROVIDERS: PCP Family Medicine; Visit Provider Internal Medicine Nephrology
DX: R73.01 Impaired fasting glucose (principal); Z94.0 Kidney transplant status
CPT/HCPCS: 36415; 80053; 80197; 82248; 83735; 84100; 84550; 85025

== ENCOUNTER 2025-01-21 06:53 | Outpatient (OUT) | payer MEDICARE, OTHER, SELFPAY ==
--- OUTSIDE RECORDS SUMMARY | 2025-01-21 06:58 | XMS_ITS | CCD ---
Author Organization [facility] Care Team Providers Care Saw Maker Name Role Phone Tj Wells Unavailable MD Jericho Mccarthy Primary Care Provider [phone] MD Tj Wells Attending Provider Tj Wells Attending Unavailabl e NadJericho lofton Primary Care Unavailable Tj Wells Admitting Unavailabl e Tj Wells Admitting Unavailabl e Tj Wells Attending Unavailabl e Jericho Mccarthy Primary Care Unavailable MISC, DR ALVAREZ Attending Unavailable MISC, DR ALVAREZ Admitting Unavailable MISC, DR ALVAREZ Consulting Unavailable NADERER, DR FERGUSON A Primary Care Unavailable EKUK, DR MERRITT Consulting Unavailable EKUK, DR MERRITT Attending Unavailable EKUK, DR MERRITT Admitting Unavailable NADERER, DR FERGUSON A Primary Care Unavailable MISC, DR ALVAREZ Attending Unavailable MISC, DR ALVAREZ Admitting Unavailable NADERER, DR FERGUSON A Primary Care Unavailable MISC, DR ALVAREZ Consulting Unavailable EKUK, DR MERRITT Consulting Unavailable EKUK, DR MERRITT Attending Unavailable NADERER, DR FERGUSON A Primary Care Unavailable EKUK, DR MERRITT Admitting Unavailable MISC, DR ALVAREZ [...] Admitting Unavailable MIS, DR ALVAREZ Admitting Unavailable MISC, DR ALVAREZ Consulting Unavailable FABIO, DR JERICHO Floyd Primary Care Unavailable MISC, DR ALVAREZ Attending Unavailable MISC, DR ALVAREZ Attending Unavailable MISC, DOCTOR Admitting Unavailable MISC, DR ALVAREZ Consulting Unavailable FABIO, DR JERICHO Floyd Primary Care Unavailable JERICHO MCCARTHY Attending Unavailable JERICHO MCCARTHY Attending Unavailable RAJESH GAINES Attending Unavailable FABIO, JERICHO Attending Unavailable Jericho Mccarthy MD Primary Care Provider AZEB LEE Attending Unavailable SABINA FUNES Attending Unavailable SANTANA LANDIN Attending Unavailable Allergies Allergy Classification Reported Allergen(s) Allergy Type Date of Onset Reaction(s) Facility (13 sources) Non-steroidal anti-inflammator y agent Drug Intolerance 2 [facility] (1 source) NSAIDs; Translations: [NSAIDS (NON-STEROIDAL ANTI-INFLAMMATOR Y DRUG)] Propensity to adverse reactions to drug (disorder) 2 [facility] Repository Medications Current Medications Medication Drug Class(es) Dates Sig (Normalized) Sig (Original) aMILoride hydrochloride 5 mg oral tablet (7 sources) Potassium-sparing Diuretic Start: 01-19-2024 End: 01-18-2025 take 1 tablet by mouth in the morning aMILoride (Midamor) 5 MG tablet Take 5 mg by mouth in the morning. 01/19/2024 01/18/2025 Active amLODIPine 10 mg oral tablet (16 sources) Dihydropyridine Calcium Channel Swetha Start: 07-08-2017 take 10 mg by mouth once daily Amlodipine Active 10 MG PO Daily July 08, 2017 1:00am atorvastatin 10 mg oral tablet (15 sources) HMG-CoA Reductase Inhibitor Start: 10-04-2022 take [...] meals. Active cinacalcet 30 mg oral tablet (15 sources) Calcium-sensing Receptor Agonist Start: 03-05-2022 take 30 mg by mouth once daily Cinacalcet Active 30 MG PO Daily March 05, 2022 12:00am Cinacalcet HCl A ctive dicyclomine hydrochloride 20 mg oral tablet (1 source) Anticholinergic Start: 03-05-2022 take 20 mg by mouth twice daily Dicyclomine Active 20 MG PO Twice daily March 05, 2022 12:00am furosemide 20 mg oral tablet (9 sources) Loop Diuretic Start: 09-16-2023 take 1 [...] ml insulin glargine 100 unt/ml pen injector (15 sources) Insulin Analog Start: 10-19-2024 Basaglar KwikP en 100 UNIT/ML pen Indications: Type 2 diabetes mellitus with hyperglycemia, with long-term current use of insulin (HCC) INJECT 20 UNITS SUBCUTANEOUSLY (UNDER THE SKIN) AT BEDTIME 15 mL 10/19/2024 Active Start: 08-05-2024 Basaglar KwikP en 100 UNIT/ML pen Indications: [...] 02/16/2024 Discontinued lisinopril 20 mg oral tablet (16 sources) Angiotensin Converting Enzyme Inhibitor Start: 01-07-2017 take 20 mg by mouth once daily Lisinopril Active 20 MG PO Daily January 07, 2017 12:00am Start: 01-07-2017 take 20 mg by mouth twice carmelo y Lisinopril Active 20 MG PO Twice daily January 07, 2017 12:00am Magnesium (1 source) Magnesium Active magnesium oxide 400 mg oral tablet (15 sources) Start: 03-05-2022 take 1200 mg by [...] Active metFORMIN hydrochloride 500 mg oral tablet (13 sources) Biguanide Start: 04-29-2024 take 1 tablet by mouth twice daily at dinner metFORMIN (Glucophage) 500 MG tablet Indications: Type 2 diabetes mellitus with hyperglycemia, without long-term current use of insulin (HCC) TAKE 1 TABLET BY MOUTH TWICE DAILY [...] acid 180 mg delayed release oral tablet (14 sources) Antimetabolite Immunosuppressant take 4 tablets by mouth in the morning mycophenolate (Myfortic) 180 MG EC tablet Take 4 tablets by mouth in the morning and 4 tablets before bedtime. Active take 2 tablets by mo uth every twelve hours Mycophenolate Sodium 180 MG 2 tablets Or ally Twice a day Active omeprazole 20 mg delayed release oral tablet (13 sources) Proton Pump Inhibitor Start: 04-30-2023 take 1 tablet by mouth before mealtime omeprazole OTC (PriLOSEC OTC) 20 MG EC tablet Take 20 mg by mouth in the morning. Take before meals. 04/30/2023 Active sildenafil 20 mg oral tablet (15 sources) Phosphodiesterase 5 Inhibitor Start: 11-29-2022 take [...] tacrolimus 0.5 mg extended release oral capsule (15 sources) Calcineurin Inhibitor Immunosuppressant Start: 03-05-2022 take [...] aspirin 81 mg delayed release oral tablet (9 sources) Platelet Aggregation Inhibitor, Nonsteroidal Anti-inflammatory Drug [...] (Porcine) Discontinued 5000 UNIT IV As Directed July 08, 2017 9:53am March 05, 2022 [...] 2 MCG IVP MWF DURING DIALYSIS PER [facility] (08/26/18) 5 ml sodium ferric gluconate complex 12.5 mg/ml injection (2 sources) Start: 07-08-2017 End: 03-05-2022 Sodium Ferric Gluconat-Sucrose (Ferrlecit) 62.5 mg/5 mL Solution Discontinued 125 MG IV Q14D July 08, 2017 1:00am March 05, 2022 7:07am RECEIVES FERRLECIT 125MG IVP EVERY OTHER FRIDAY (DOSE DUE 08/26/18 PER [facility]) Problems Active Problems Problem Classification Problem Date Documented Date Episodic/Chronic Cataract (13 sources) Cataract; Translations: [Unspecified cataract] Onset: 3 05-02-2023 Chronic Chronic kidney disease (20 sources) Dependence on renal dialysis; Translations: [Dependence on renal dialysis] Onset: 0 08-26-2018 Chronic Chronic obstructive pulmonary disease and bronchiectasis (13 sources) Chronic obstructive lung disease; Translations: [Chronic obstructive pulmonary disease, unspecified] Onset: 3 05-22-2023 Chronic Congestive heart failure; nonhypertensive (15 sources) Chronic heart failure co-occurrent with normal ejection fraction; Translations: [Chronic diastolic (congestive) heart failure] Onset: 2 05-22-2023 Chronic Coronary atherosclerosis and other heart disease (15 sources) Coronary atherosclerosis; Translations: [Atherosclerotic heart disease of [place] coronary artery without angina pectoris] Onset: 2 05-02-2023 Chronic Diabetes mellitus with complications (19 sources) Hyperglycemia due to type 2 diabetes mellitus; Translations: [Type 2 diabetes mellitus with hyperglycemia] Onset: 4 05-22-2023 Chronic Disorders of lipid metabolism (14 sources) Pure hypercholesterolemia, unspecified; Translations: [Mixed hyperlipidemia] [...] disorders] 02-02-2024 Episodic Peripheral and visceral atherosclerosis (15 sources) Peripheral vascular disease; Translations: [Peripheral vascular [...] sources) Kidney Follow-up; Translations: [Kidney Follow-up] Onset: 5 Past or Other Problems Problem Classification Problem Date Documented Da te Episodic/Chronic Acute and unspecified renal failure (13 sources) Acute renal failure syndrome; Translations: [Acute [...] 2 Episodic Other aftercare (1 source) 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; Translations: [OTH SALES SUPPORT CONSULTANT CURRENT DRUG THERAPY] Onset: 2 Episodic Other gastrointestinal disorders (3 sources) Diarrhea, unspecified; Translations: [Diarrhea] Onset: 2 Resolved: 2 Episodic Other gastrointestinal disorders (1 source) Fecal urgency Onset: 2 Resolved: 2 Episodic Other non-epithelial cancer of skin (15 sources) Basal cell carcinoma of dorsum of nose; Translations: [Basal cell carcinoma of skin of nose] Onset: 3 05-02-2023 Episodic Pleurisy; pneumothorax; pulmonary collapse (13 sources) Pleurisy with effusion; Translations: [Pleural effusion, not elsewhere classified] Onset: 3 04-16-2023 Episodic Residual codes; unclassified (13 sources) At risk for infection; Translations: [Personal history of immunosupression therapy] Onset: 2 05-02-2023 Episodic Results Test Name Value Interpretation Reference Range Facility 29on 12-02-2024 29 Addended by: SHARON JIMENEZ on: 12/02/2024 03:55 PM Modules accepted: Orders Normal [facility] 37on 12-02-2024 37 Patient with history of end stage renal disease, status post renal transplant, creatinine .85, with relatively stable graft function. Continue with Adequate hydration. Continue with monthly labs Immunosuppression - dose changes, if indicated, will be based on monthly laboratory testing result. HTN - blood pressure in clinic reviewed. Will ask patient to keep a log of blood pressures at home, contact [facility] transplant if blood pressure is persistently >140/90. Continue with current antihypertensive regimen Magnesium 800 mg tid [facility] Follow-Upon 12-02-2024 Follow-Up [id number] Roger Kerr 1950 M Date Provider Department Center 12/02/2024 [id number] FUNES None Family History Problem Relation Age of Onset Diabetes Mother Hypertension Mother Coronary artery disease Mother Other Mother Cystic kidney disease Mother Hypertension Father Skin cancer Father Cystic kidney disease Father Cystic kidney disease Sister Heart disease Brother ALS Brother Cystic kidney disease Brother Family Status - Relation Status Age at Mother Father Sister Brother Level of Service:24796 PA OFFICE/OUTPATIENT ESTABLISHED MOD MDM 30 MIN Reason for Visit and Comments: Kidney Follow-up [[id number]] [facility] ALL CBC WITH AUTO DIFFon BASOPHILS ABSOLUTE AUTO 0 [facility] Basophils/100 WBC (Bld) 0.5 % 0.2 - 2.0 % [facility] Eosinophils/100 WBC (Bld) 3.8 % 0.9 - 7.0 % [facility] Erythrocyte distribution width (RBC) [Ratio] 14.1 % 11.0 - 15.0 % [facility] Hematocrit (Bld) [Volume fraction] 35.9 % Low 42.0 - 54.0 % [facility] Hemoglobin (Bld) [Mass/Vol] 11.6 g/dL Low 14.0 - 18.0 g/dL [facility] IMMATURE GRANULOCYTES ABS AUTO 0.07 High [facility] Immature granulocytes/100 WBC (Bld) 0.9 % High 0.0 - 0.5 % [facility] Interpretation and review of laboratory results Abnormal [facility] LYMPHOCYTES ABSOLUTE AUTO 0.9 Low [facility] Lymphocytes/100 WBC (Bld) 12.3 % Low 20.5 - 60.0 % [facility] MCH (RBC) [Entitic mass] 29.1 pg 25.9 - 34.0 pg [facility] MCHC (RBC) [Mass/Vol] 32.3 g/dL 29.9 - 35.2 g/dL [facility] MCV (RBC) [Entitic vol] 90 fL 80.0 - 94.0 fL [facility] MONOCYTES ABSOLUTE AUTO 0.6 [facility] Monocytes/100 WBC (Bld) 8 % 1.7 - 12.0 % [facility] NEUTROPHILS ABSOLUTE AUTO 5.7 [facility] Neutrophils/100 WBC (Bld) 74.5 % 43.0 - 75.0 % [facility] Platelet mean volume (Bld) [Entitic vol] 9.9 fL 9.5 - 13.5 fL [facility] TBH EO # 0.3 [facility]H PLT 221 [facility] TB RBC 3.99 Low [facility] TB WBC 7.7 [facility] [id number] 36 Standing labs completed, will mail once we get dr signature. [facility] 11-22-2024 36 Patient is calling back, would like order mailed to home. Thank you [facility] 11-10-2024 36 Patient is requestin g an updated standing lab order to be mailed to his home. Address confirmed. Thank you This phone message was created by the Ambulatory float staff. If you need home support worker follow up regarding this patient, please make your appropriate clinic staff member aware. Thank you. [facility] ALL CBC WITH AUTO DIFFon BASOPHILS ABSOLUTE AUTO 0 [facility] Basophils/100 WBC (Bld) 0.7 % 0.2 - 2.0 % [facility] Eosinophils/100 WBC (Bld) 3 % 0.9 - 7.0 % [facility] Erythrocyte distribution width (RBC) [Ratio] 14.1 % 11.0 - 15.0 % [facility] Hematocrit (Bld) [Volume fraction] 36.3 % Low 42.0 - 54.0 % [facility] Hemoglobin (Bld) [Mass/Vol] 11.7 g/dL Low 14.0 - 18.0 g/dL [facility] IMMATURE GRANULOCYTES ABS AUTO 0.04 High [facility] Immature granulocytes/100 WBC (Bld) 0.7 % High 0.0 - 0.5 % [facility] Interpretation and review of laboratory results Abnormal [facility] LYMPHOCYTES ABSOLUTE AUTO 1 Low [facility] Lymphocytes/100 WBC (Bld) 16.7 % Low 20.5 - 60.0 % [facility] MCH (RBC) [Entitic mass] 29.1 pg 25.9 - 34.0 pg [facility] MCHC (RBC) [Mass/Vol] 32.2 g/dL 29.9 - 35.2 g/dL [facility] MCV (RBC) [Entitic vol] 90.3 fL 80.0 - 94.0 fL [facility] MONOCYTES ABSOLUTE AUTO 0.4 [facility] Monocytes/100 WBC (Bld) 6.8 % 1.7 - 12.0 % [facility] NEUTROPHILS ABSOLUTE AUTO 4.4 [facility] Neutrophils/100 WBC (Bld) 72.1 % 43.0 - 75.0 % [facility] Platelet mean volume (Bld) [Entitic vol] 9.5 fL 9.5 - 13.5 fL [facility] TBH EO # 0.2 [facility] TBH PLT 242 [facility] TB RBC 4.02 Low [facility] TBH WBC 6.1 [facility] Follow-Upon 06-18-2024 Follow-Up [id number] Roger Kerr 1950 M Date Provider Department [...] at Mother Father Sister Brother Level of Service:26430 PA OFFICE/OUTPATIENT ESTABLISHED MOD MDM 30 MIN () Reason for Visit and Comments: Kidney Follow-up [[id number]] - NO CONCERNS Normal [facility] Office Visiton 06-09-2024 Follow-up visit [id number] Roger Kerr 1950 M [facility] Provider Department Center 06/09/2024 [id number] LEE Family History Problem Relation Age of Onset Diabetes Mother Hypertension Mother Coronary artery disease Mother Other Mother Cystic kidney disease Mother Hypertension Father Skin cancer Father Cystic kidney disease Father Cystic kidney disease Sister Heart disease Brother ALS Brother Cystic kidney disease Brother Family Status - Relation Status Age at Mother Father Sister Brother Level of Service:03499 PA OFFICE/OUTPATIENT ESTABLISHED LOW MDM [address] [facility] ALL CBC WITH AUTO DIFFon BASOPHILS ABSOLUTE AUTO 0 [facility] Basophils/100 WBC (Bld) 0.9 % 0.2 - 2.0 % [facility] Eosinophils/100 WBC (Bld) 5.4 % 0.9 - 7.0 % [facility] Erythrocyte distribution width (RBC) [Ratio] 13.9 % 11.0 - 15.0 % [facility] Hematocrit (Bld) [Volume fraction] 35 % Low 42.0 - 54.0 % [facility] Hemoglobin (Bld) [Mass/Vol] 11.2 g/dL Low 14.0 - 18.0 g/dL [facility] IMMATURE GRANULOCYTES ABS AUTO 0.05 High [facility] Immature granulocytes/100 WBC (Bld) 1.5 % High 0.0 - 0.5 % [facility] Interpretation and review of laboratory results Abnormal [facility] LYMPHOCYTES ABSOLUTE AUTO 0.7 Low [facility] Lymphocytes/100 WBC (Bld) 22 % 20.5 - 60.0 % [facility] MCH (RBC) [Entitic mass] 29.5 pg 25.9 - 34.0 pg [facility] MCHC (RBC) [Mass/Vol] 32 g/dL 29.9 - 35.2 g/dL [facility] MCV (RBC) [Entitic vol] 92.1 fL 80.0 - 94.0 fL [facility] MONOCYTES ABSOLUTE AUTO 0.5 [facility] Monocytes/100 WBC (Bld) 15.2 % High 1.7 - 12.0 % [facility] NEUTROPHILS ABSOLUTE AUTO 1.9 [facility] Neutrophils/100 WBC (Bld) 55 % 43.0 - 75.0 % [facility] Platelet mean volume (Bld) [Entitic vol] 9.5 fL 9.5 - 13.5 fL [facility] TBH EO # 0.2 [facility] TBH PLT 252 [facility] TB RBC 3.[address] [facility] WBC 3.4 Low [facility] ALL CBC WITH AUTO DIFFon BASOPHILS ABSOLUTE AUTO 0.1 [facility] Basophils/100 WBC (Bld) 0.7 % 0.2 - 2.0 % [facility] Eosinophils/100 WBC (Bld) 3.6 % 0.9 - 7.0 % [facility] Erythrocyte distribution width (RBC) [Ratio] 14 % 11.0 - 15.0 % [facility] Hematocrit (Bld) [Volume fraction] 36 % Low 42.0 - 54.0 % [facility] Hemoglobin (Bld) [Mass/Vol] 11.7 g/dL Low 14.0 - 18.0 g/dL [facility] IMMATURE GRANULOCYTES ABS AUTO 0.04 High [facility] Immature granulocytes/100 WBC (Bld) 0.6 % High 0.0 - 0.5 % [facility] Interpretation and review of laboratory results Abnormal [facility] LYMPHOCYTES ABSOLUTE AUTO 0.9 Low [facility] Lymphocytes/100 WBC (Bld) 13.9 % Low 20.5 - 60.0 % [facility] MCH (RBC) [Entitic mass] 29.3 pg 25.9 - 34.0 pg [facility] MCHC (RBC) [Mass/Vol] 32.5 g/dL 29.9 - 35.2 g/dL [facility] MCV (RBC) [Entitic vol] 90.2 fL 80.0 - 94.0 fL [facility] MONOCYTES ABSOLUTE AUTO 0.6 [facility] Monocytes/100 WBC (Bld) 8.2 % 1.7 - 12.0 % [facility] NEUTROPHILS ABSOLUTE AUTO 4.9 [facility] Neutrophils/100 WBC (Bld) 73 % 43.0 - 75.0 % [facility] Platelet mean volume (Bld) [Entitic vol] 8.9 fL Low 9.5 - 13.5 fL [facility] TBH EO # 0.2 [facility] TB PLT [address] [facility] RBC 3.99 Low [facility] TB WBC 6.7 [facility] 36on 04-01-2024 36 Regarding echo resul t from 03/23/2024: MD Lurdes Stallings MA His echo overall was okay. He just needs a regular follow-up. Spoke with patient and scheduled him a follow up with Jennifer Egan CNP on 05/13/2024. Normal [facility] ALL CBC WITH AUTO DIFFon BASOPHILS ABSOLUTE AUTO 0 [facility] Basophils/100 WBC (Bld) 0.5 % 0.2 - 2.0 % [facility] Eosinophils/100 WBC (Bld) 2.7 % 0.9 - 7.0 % [facility] Erythrocyte distribution width (RBC) [Ratio] 13.7 % 11.0 - 15.0 % [facility] Hematocrit (Bld) [Volume fraction] 36.6 % Low 42.0 - 54.0 % [facility] Hemoglobin (Bld) [Mass/Vol] 12.1 g/dL Low 14.0 - 18.0 g/dL [facility] IMMATURE GRANULOCYTES ABS AUTO 0.03 [facility] Immature granulocytes/100 WBC (Bld) 0.5 % 0.0 - 0.5 % [facility] Interpretation and review of laboratory results Abnormal [facility] LYMPHOCYTES ABSOLUTE AUTO 0.9 Low [facility] Lymphocytes/100 WBC (Bld) 13.3 % Low 20.5 - 60.0 % [facility] MCH (RBC) [Entitic mass] 29.3 pg 25.9 - 34.0 pg [facility] MCHC (RBC) [Mass/Vol] 33.1 g/dL 29.9 - 35.2 g/dL [facility] MCV (RBC) [Entitic vol] 88.6 fL 80.0 - 94.0 fL [facility] MONOCYTES ABSOLUTE AUTO 0.5 [facility] Monocytes/100 WBC (Bld) 7.7 % 1.7 - 12.0 % [facility] NEUTROPHILS ABSOLUTE AUTO 5 [facility] Neutrophils/100 WBC (Bld) 75.3 % High 43.0 - 75.0 % [facility] Platelet mean volume (Bld) [Entitic vol] 9.1 fL Low 9.5 - 13.5 fL [facility] TBH EO # 0.2 [facility] TBH PLT 262 [facility] TB RBC 4.13 Low [facility] TB WBC 6.6 [facility] Documentationon 03-11-2024 Documentation [id number] Roger Kerr 1950 Date Provider Department Center 03/11/2024 [id number], TYMARA TXP None Family History Problem Relation Age of Onset Diabetes Mother Hypertension Mother Coronary artery disease Mother Other Mother Cystic kidney disease Mother Hypertension Father Skin cancer Father Cystic kidney disease Father Cystic kidney disease Sister Heart disease Brother ALS Brother Cystic kidney disease Brother Family Status - Relation Status Age at Mother Father Sister Brother Normal [facility] 29on 02-11-2024 29 Addended by: SANTANA LANDIN on: 07/11/2024 11:41 PM Modules accepted: Level of Service Normal [facility] Follow-Upon 02-11-2024 Follow-Up [id number] Roger Kerr 1950 M Date Provider Department Center 02/11/2024 [id number] LANDIN TXP None Family History Problem Relation Age of Onset Diabetes Mother Hypertension Mother Coronary artery disease Mother Other Mother Cystic kidney disease Mother Hypertension Father Skin cancer Father Cystic kidney disease Father Cystic kidney disease Sister Heart disease Brother ALS Brother Cystic kidney disease Brother Family Status - Relation Status Age at Mother Father Sister Brother Level of Service:05370 PA OFFICE/OUTPATIENT ESTABLISHED MOD MDM 30 MIN Reason for Visit and Comments: Kidney Follow-up [[id number]] - Pt has no concerns at this time. Normal [facility] ALL CBC WITH AUTO DIFFon BASOPHILS ABSOLUTE AUTO 0.0 [facility] Basophils/100 WBC (Bld) 0.6 % 0.2 - 2.0 % [facility] Eosinophils/100 WBC (Bld) 3.1 % 0.9 - 7.0 % [facility] Erythrocyte distribution width (RBC) [Ratio] 13.6 % 11.0 - 15.0 % [facility] Hematocrit (Bld) [Volume fraction] 36.0 % Low 42.0 - 54.0 % [facility] Hemoglobin (Bld) [Mass/Vol] 12.3 g/dL Low 14.0 - 18.0 g/dL [facility] IMMATURE GRANULOCYTES ABS AUTO 0.01 [facility] Immature granulocytes/100 WBC (Bld) 0.1 % 0.0 - 0.5 % [facility] Interpretation and review of laboratory results Abnormal [facility] LYMPHOCYTES ABSOLUTE AUTO 0.8 Low [facility] Lymphocytes/100 WBC (Bld) 11.8 % Low 20.5 - 60.0 % [facility] MCH (RBC) [Entitic mass] 29.9 pg 25.9 - 34.0 pg [facility] MCHC (RBC) [Mass/Vol] 34.2 g/dL 29.9 - 35.2 g/dL [facility] MCV (RBC) [Entitic vol] 87.4 fL 80.0 - 94.0 fL [facility] MONOCYTES ABSOLUTE AUTO 0.5 [facility] Monocytes/100 WBC (Bld) 7.7 % 1.7 - 12.0 % [facility] NEUTROPHILS ABSOLUTE AUTO 5.4 [facility] Neutrophils/100 WBC (Bld) 76.7 % High 43.0 - 75.0 % [facility] Platelet mean volume (Bld) [Entitic vol] 9.4 fL Low 9.5 - 13.5 fL [facility] TBH EO # 0.2 [facility] TBH PLT 233 [facility] TB RBC 4.12 Low [facility] TBH WBC 7.1 [facility] Orders Onlyon 01-16-2024 Orders Only [id number] Roger Kerr 1950 M Date Provider Department Center 01/16/2024 [id number] MARQUES None Family History Problem Relation Age of Onset Diabetes Mother Hypertension Mother Coronary artery disease Mother Other Mother Cystic kidney disease Mother Hypertension Father Skin cancer Father Cystic kidney disease Father Cystic kidney disease Sister Heart disease Brother ALS Brother Cystic kidney disease Brother Family Status - Relation Status Age at Mother Father Sister Brother Normal [facility] ALL CBC WITH AUTO DIFFon BASOPHILS ABSOLUTE AUTO 0.0 [facility] Basophils/100 WBC (Bld) 0.5 % 0.2 - 2.0 % [facility] Eosinophils/100 WBC (Bld) 6.0 % 0.9 - 7.0 % [facility] Erythrocyte distribution width (RBC) [Ratio] 13.9 % 11.0 - 15.0 % [facility] Hematocrit (Bld) [Volume fraction] 35.3 % Low 42.0 - 54.0 % [facility] Hemoglobin (Bld) [Mass/Vol] 11.7 g/dL Low 14.0 - 18.0 g/dL [facility] IMMATURE GRANULOCYTES ABS AUTO 0.03 [facility] Immature granulocytes/100 WBC (Bld) 0.5 % 0.0 - 0.5 % [facility] Interpretation and review of laboratory results Abnormal [facility] LYMPHOCYTES ABSOLUTE AUTO 0.9 Low [facility] Lymphocytes/100 WBC (Bld) 13.1 % Low 20.5 - 60.0 % [facility] MCH (RBC) [Entitic mass] 29.8 pg 25.9 - 34.0 pg [facility] MCHC (RBC) [Mass/Vol] 33.1 g/dL 29.9 - 35.2 g/dL [facility] MCV (RBC) [Entitic vol] 90.1 fL 80.0 - 94.0 fL [facility] MONOCYTES ABSOLUTE AUTO 0.5 [facility] Monocytes/100 WBC (Bld) 7.6 % 1.7 - 12.0 % [facility] NEUTROPHILS ABSOLUTE AUTO 4.7 [facility] Neutrophils/100 WBC (Bld) 72.3 % 43.0 - 75.0 % [facility] Platelet mean volume (Bld) [Entitic vol] 9.3 fL Low 9.5 - 13.5 fL [facility] TBH EO # 0.4 [facility] TB PLT 253 [facility] TB RBC 3.[address] [facility] WBC 6.5 [facility] FK506 (TACROLIMUS) WHOLE BLO ODon 10-06-2022 Tacrolimus (FK506), Blood 3.8 ng/mL Normal 2.0-20.0 [facility] Comment on above: Result Comment: Trou gh (immediately following transplant) 15.0 . Trough (steady state, 2 weeks or more after transplant): 3.0 - 8.0 . Performed by LC-MS/MS technology. Performed By: #### U CLINT, CMP, LIPID, DBIL, PHOS, MG #### [facility] [address] [address] [address] Brea Causey BILIRUBIN CONJUGATED (DIRECT )on 10-03-2022 BILI, CONJUGATED 0.1 mg/dL Normal 0.0-0.2 [facility] Comment on above: Performed By: #### C BC #### [facility] [address] [place], [place] [address] Dr. Brea Causey CBC AUTO DIFFon 10-03-2022 BASO # 0.0 103/ul Normal 0.0-0.1 [facility] Comment on above: Performed By: #### U CLINT, CMP, LIPID, DBIL, PHOS, MG #### [facility] [address] [place] [address] Dr. Brea Causey Basophils/100 WBC (Bld) 0.5 % Normal 0.2-2.[address] [facility] Comment on above: Performed By: #### U CLINT, CMP, LIPID, DBIL, PHOS, MG #### [facility] [address] [place] [address] Dr. Brea Causey EO # 0.1 103/ul Normal 0.0-0.[address] [facility] Comment on above: Performed By: #### U CLINT, CMP, LIPID, DBIL, PHOS, MG #### [facility] [address] [place] [address] Dr. Brea Causey Eosinophils/100 WBC (Bld) 2.3 % Normal 0.9-7.[address] [facility] Comment on above: Performed By: #### U CLINT, CMP, LIPID, DBIL, PHOS, MG #### [facility] [address] [place] [address] Dr. Brea Causey Erythrocyte distribution width (RBC) [Ratio] 13.2 % Normal 11.0-15.[address] [facility] Comment on above: Performed By: #### U CLINT, CMP, LIPID, DBIL, PHOS, MG #### [facility] [address] [place] [address] Dr. Brea Causey Hematocrit (Bld) [Volume fraction] 35.0 % Critically low 42.0-54.[address] [facility] Comment on above: Performed By: #### U CLINT, CMP, LIPID, DBIL, PHOS, MG #### [facility] [address] [place] [address] Dr. Brea Causey Hemoglobin (Bld) [Mass/Vol] 11.7 g/dL Critically low 14.0-18.0 [facility] Comment on above: Performed By: #### U CLINT, CMP, LIPID, DBIL, PHOS, MG #### [facility] [address] [place] [address] Dr. Brea Causey IG # 0.06 10e3/ul Critically high 0.00-0.03 [facility] Comment on above: Performed By: #### U CLINT, CMP, LIPID, DBIL, PHOS, MG #### [facility] [address] [address] [address] Brea Causey IG % 1.1 % Critically high 0.0-0.5 [facility] Comment on above: Performed By: #### U CLINT, CMP, LIPID, DBIL, PHOS, MG #### [facility] [address] [address] [address] Brea Causey LYMPH # 0.8 103/ul Critically low 1.2-3.8 [facility] Comment on above: Performed By: #### U CLINT, CMP, LIPID, DBIL, PHOS, MG #### [facility] [address] [place] [address] Dr. Brea Causey Lymphocytes/100 WBC (Bld) 14.9 % Critically low 20.5-60.0 [facility] Comment on above: Performed By: #### U CLINT, CMP, LIPID, DBIL, PHOS, MG #### [facility] [address] [place] [address] Dr. Brea Causey MANUAL DIFF REQ NO Normal [facility] Comment on above: Performed By: #### U CLINT, CMP, LIPID, DBIL, PHOS, MG #### [facility] [address] [place] [address] Dr. Brea Causey MCH (RBC) [Entitic mass] 28.8 pg Normal 25.9-34.0 [facility] Comment on above: Performed By: #### U CLINT, CMP, LIPID, DBIL, PHOS, MG #### [facility] [address] [place] [address] Dr. Brea Causey MCHC (RBC) [Mass/Vol] 33.4 g/dL Normal 29.9-35.2 [facility] Comment on above: Performed By: #### U CLINT, CMP, LIPID, DBIL, PHOS, MG #### [facility] [address] [place] [address] Dr. Brea Causey MCV (RBC) [Entitic vol] 86.2 fL Normal 80.0-94.0 [facility] Comment on above: Performed By: #### U CLINT, CMP, LIPID, DBIL, PHOS, MG #### [facility] [address] [place] [address] Dr. Brea Causey MONO # 0.5 103/ul Normal 0.3-0.[address] [facility] Comment on above: Performed By: #### U CLINT, CMP, LIPID, DBIL, PHOS, MG #### [facility] [address] [place] [address] Dr. Brea Casuey Monocytes/100 WBC (Bld) 9.1 % Normal 1.7-12.[address] [facility] Comment on above: Performed By: #### U CLINT, CMP, LIPID, DBIL, PHOS, MG #### [facility] [address] [place] [address] Dr. Brea Causey NEUT # 4.1 103/ul Normal 1.4-6.[address] [facility] Comment on above: Performed By: #### U CLINT, CMP, LIPID, DBIL, PHOS, MG #### [facility] [address] [place] [address] Dr. Brea Causey Neutrophils/100 WBC (Bld) 72.1 % Normal 43.0-75.[address] [facility] Comment on above: Performed By: #### U CLINT, CMP, LIPID, DBIL, PHOS, MG #### [facility] [address] [place] [address] Dr. Brea Causey Platelet mean volume (Bld) [Entitic vol] 9.0 fL Critically low 9.5-13.[address] [facility] Comment on above: Performed By: #### U CLINT, CMP, LIPID, DBIL, PHOS, MG #### [facility] [address] [place] [address] Dr. Brea Causey PLT 211 103/ul Normal 150-[address] [facility] Comment on above: Performed By: #### U CLINT, CMP, LIPID, DBIL, PHOS, MG #### [facility] [address] [address] [address] Brea Causey RBC 4.06 106/ul Critically low 4.70-6.10 [facility] Comment on above: Performed By: #### U CLINT, CMP, LIPID, DBIL, PHOS, MG #### [facility] [address] [address] [address] Brea Causey WBC 5.6 103/ul Normal 4.0-11.0 [facility] Comment on above: Performed By: #### U CLINT, CMP, LIPID, DBIL, PHOS, MG #### [facility] [address] [address] [address] Brea Causey LIPID PROFILEon 10-03-2022 CHOL-HDL RATIO NORM SEE BELOW Normal [facility] Comment on above: Result Comment: 3.3 - 4.4 LOW RISK 4.4 - 7.1 AVERAGE RISK 7.1 - 11.0 MODERATE RISK >11.0 HIGH RISK Performed By: #### C BC #### [facility] [address] [place] [address] Dr. Brea Causey Cholesterol [Mass/Vol] 93 mg/dL Normal <=200 [facility] Comment on above: Performed By: #### C BC #### [facility] [address] [place] [address] Dr. Brea Causey Cholesterol in HDL [Mass/Vol] 43 mg/dL Normal 40-60 [facility] Comment on above: Performed By: #### C BC #### [facility] [address] [place] [address] Dr. Brea Causey Cholesterol in LDL [Mass/Vol] 37.6 mg/dL Normal [facility] Comment on above: Performed By: #### C BC #### [facility] [address] [place] [address] Dr. Brea Causey Cholesterol.total/Chol esterol in HDL [Mass ratio] 2.2 {ratio} Normal [facility] Comment on above: Performed By: #### C BC #### [facility] [address] [place] [address] Dr. Brea Causey HDL NORMAL > or = 60 mg/dl - LO W CARDIOVASCULAR RISK <40 mg/dl - HIGH CARDIOVASCULAR RISK Normal [facility] Comment on above: Performed By: #### C BC #### [facility] [address] [address] [address] Brea Causey LDL CALC NORMAL SEE BELOW Normal [facility] Comment on above: Result Comment: <100 mg/dl OPTIMAL 100 - 129 mg/dl NEAR OR ABOVE OPTIMAL 130 - 159 mg/dl BORDERLINE HIGH 160 - 189 mg/dl HIGH >190 mg/dl VERY HIGH Performed By: #### C BC #### [facility] [address] [address] [address] Brea Causey Triglyceride [Mass/Vol] 62 mg/dL Normal <=150 [facility] Comment on above: Performed By: #### C BC #### [facility] [address] [address] [address] Brea Causey VLDL CALC 12.4 mg/dL Normal [facility] Comment on above: Performed By: #### C BC #### [facility] [address] [address] [address] Brea Causey MAGNESIUMon 10-03-2022 Magnesium [Mass/Vol] 1.5 mg/dL Critically low 1.8-2.4 [facility] Comment on above: Performed By: #### C BC #### [facility] [address] [address] [address] Brea Causey PHOSPHORUSon 10-03-2022 Phosphate [Mass/Vol] 4.4 mg/dL Normal 2.6-4.7 [facility] Comment on above: Performed By: #### C BC #### [facility] [address] [address] [address] Brea Causey PROF 14(COMP METB)on 023 Albumin [Mass/Vol] 3.8 g/dL Normal 3.4-5.0 [facility] Comment on above: Performed By: #### C BC #### [facility] [address] [place] [address] Dr. Brea Causey Albumin/Globulin [Mass ratio] 1.1 {ratio} Normal [facility] Comment on above: Performed By: #### C BC #### [facility] [address] [address] [address] Brea Causey ALP [Catalytic activity/Vol] 190 U/L Critically high 46-116 [facility] Comment on above: Performed By: #### C BC #### [facility] [address] [address] [address] Brea Causey ALT [Catalytic activity/Vol] 26 U/L Normal 16-63 [facility] Comment on above: Performed By: #### C BC #### [facility] [address] [address] [address] Brea Causey Anion gap [Moles/Vol] 15.3 mmol/L Normal [facility] Comment on above: Performed By: #### C BC #### [facility] [address] [place] [address] Dr. Brea Causey AST [Catalytic activity/Vol] 23 U/L Normal 15-37 [facility] Comment on above: Performed By: #### C BC #### [facility] [address] [address] [address] Brea Causey Bilirubin [Mass/Vol] 0.4 mg/dL Normal 0.2-1.0 [facility] Comment on above: Performed By: #### C BC #### [facility] [address] [address] [address] Brea Causey Calcium [Mass/Vol] 7.8 mg/dL Critically low 8.5-10.1 [facility] Comment on above: Performed By: #### C BC #### [facility] [address] [address] [address] Brea Causey Chloride [Moles/Vol] 97 mmol/L Critically low 98-107 [facility] Comment on above: Performed By: #### C BC #### [facility] [address] [address] [address] Brea Causey CO2 [Moles/Vol] 25.6 mmol/L Normal 21.0-32.0 [facility] Comment on above: Performed By: #### C BC #### [facility] [address] [address] [address] Brea Causey Creatinine [Mass/Vol] 1.03 mg/dL Normal 0.70-1.30 [facility] Comment on above: Performed By: #### C BC #### [facility] [address] [address] [address] Brea Causey EGFR-AF GUINEAN >60 Normal >=60 [facility] Comment on above: Performed By: #### C BC #### [facility] [address] [address] [address] Brea Causey EGFR-NON AF GUINEAN >60 Normal >=60 [facility] Comment on above: Performed By: #### C BC #### [facility] [address] [place] [address] Dr. Brea Causey Globulin (S) [Mass/Vol] 3.6 g/dL Normal [facility] Comment on above: Performed By: #### C BC #### [facility] [address] [place] [address] Dr. Brea Causey Glucose [Mass/Vol] 188 mg/dL Critically high 74-106 [facility] Comment on above: Performed By: #### C BC #### [facility] [address] [place] [address] Dr. Brea Causey Potassium [Moles/Vol] 4.9 mmol/L Normal 3.5-5.1 [facility] Comment on above: Performed By: #### C BC #### [facility] [address] [place] [address] Dr. Brea Causey Protein [Mass/Vol] 7.4 g/dL Normal 6.4-8.2 [facility] Comment on above: Performed By: #### C BC #### [facility] [address] [place] [address] Dr. Brea Causey Sodium [Moles/Vol] 133 mmol/L Critically low 136-145 Th [facility] Comment on above: Performed By: #### C BC #### [facility] [address] [place] [address] Dr. Brea Causey Urea nitrogen [Mass/Vol] 11.0 mg/dL Normal 7.0-18.0 [facility] Comment on above: Performed By: #### C BC #### [facility] [address] [place] [address] Dr. Brea Causey Urea nitrogen/Creatinine [Mass ratio] 10.7 mg/mg Normal [facility] Comment on above: Performed By: #### C BC #### [facility] [address] [place] [address] Dr. Brea Causey URIC ACID SERUMon 10-03-2022 Urate [Mass/Vol] 5.7 mg/dL Normal 3.5-7.[address] [facility] Comment on above: Performed By: #### C BC #### [facility] [address] [place] [address] Dr. Brea Causey BK VIRUS PCR QUANTon 023 BKV DNA QUANT PCR PLASMA Negative Normal Negative [facility] Comment on above: Result Comment: No B K DNA detected. . The linear range of the assay is 22 - 100,000,000 IU/mL. Performed By: #### U CLINT, CMP, LIPID, DBIL, PHOS, MG #### [facility] [address] [place] [address] Dr. Brea Causey Log10 BKV DNA Plasma Normal [facility] Comment on above: Performed By: #### U CLINT, CMP, LIPID, DBIL, PHOS, MG #### [facility] [address] [place] [address] Dr. Brea Causey FK506 (TACROLIMUS) WHOLE BLO ODon 09-02-2022 Tacrolimus (FK506), Blood 3.8 ng/mL Normal 2.0-20.[address] [facility] Comment on above: Result Comment: Trou gh (immediately following transplant) 15.0 . Trough (steady state, 2 weeks or more after transplant): 3.0 - 8.0 . Performed by LC-MS/MS technology. Performed By: #### U CLINT, CMP, LIPID, DBIL, PHOS, MG #### [facility] [address] [place] [address] Dr. Brea Causey TESTOSTERONE, FREE,DIRECT, T OTALon 09-01-2022 Free Testosterone(Direct) 9.7 pg/mL Normal 6.6-18.1 [facility] Comment on above: Result Comment: Perf ormed at: BN Performed By: #### U CLINT, CMP, LIPID, DBIL, PHOS, MG #### [facility] [address] [address] [address] Brea Causey Testosterone [Mass/Vol] 565 ng/dL Normal 264-[address] [facility] Comment on above: Result Comment: Adul t male reference interval is based on a population of healthy nonobese males (BMI <30) between 19 and 39 years old. Steven et.al. JCEM 2017,102;8072-1568. PMID: [id number]. Performed at: CB Performed By: #### U CLINT, CMP, LIPID, DBIL, PHOS, MG #### [facility] [address] [place] [address] Dr. Brea Causey BILIRUBIN CONJUGATED (DIRECT )on 08-30-2022 BILI, CONJUGATED 0.1 mg/dL Normal 0.0-0.2 [facility] Comment on above: Performed By: #### U CLINT, CMP, LIPID, DBIL, PHOS, MG #### [facility] [address] [place] [address] Dr. Brea Causey CBC AUTO DIFFon 08-30-2022 BASO # 0.0 103/ul Normal 0.0-0.1 [facility] Comment on above: Performed By: #### U CLINT, CMP, LIPID, DBIL, PHOS, MG #### [facility] [address] [address] [address] Brea Causey Basophils/100 WBC (Bld) 0.7 % Normal 0.2-2.0 [facility] Comment on above: Performed By: #### U CLINT, CMP, LIPID, DBIL, PHOS, MG #### [facility] [address] [place] [address] Dr. Brea Causey EO # 0.2 103/ul Normal 0.0-0.[address] [facility] Comment on above: Performed By: #### U CLINT, CMP, LIPID, DBIL, PHOS, MG #### [facility] [address] [address] [address] Brea Causey Eosinophils/100 WBC (Bld) 3.6 % Normal 0.9-7.0 [facility] Comment on above: Performed By: #### U CLINT, CMP, LIPID, DBIL, PHOS, MG #### [facility] [address] [place] [address] Dr. Brea Causey Erythrocyte distribution width (RBC) [Ratio] 13.2 % Normal 11.0-15.0 [facility] Comment on above: Performed By: #### U CLINT, CMP, LIPID, DBIL, PHOS, MG #### [facility] [address] [place] [address] Dr. Brea Causey Hematocrit (Bld) [Volume fraction] 36.0 % Critically low 42.0-54.0 [facility] Comment on above: Performed By: #### U CLINT, CMP, LIPID, DBIL, PHOS, MG #### [facility] [address] [place] [address] Dr. Brea Causey Hemoglobin (Bld) [Mass/Vol] 12.2 g/dL Critically low 14.0-18.0 [facility] Comment on above: Performed By: #### U CLINT, CMP, LIPID, DBIL, PHOS, MG #### [facility] [address] [place] [address] Dr. Brea Causey IG # 0.07 10e3/ul Critically high 0.00-0.03 [facility] Comment on above: Performed By: #### U CLINT, CMP, LIPID, DBIL, PHOS, MG #### [facility] [address] [place] [address] Dr. Brea Causey IG % 1.2 % Critically high 0.0-0.5 [facility] Comment on above: Performed By: #### U CLINT, CMP, LIPID, DBIL, PHOS, MG #### [facility] [address] [place] [address] Dr. Brea Causey LYMPH # 0.9 103/ul Critically low 1.2-3.8 [facility] Comment on above: Performed By: #### U CLINT, CMP, LIPID, DBIL, PHOS, MG #### [facility] [address] [place] [address] Dr. Brea Causey Lymphocytes/100 WBC (Bld) 15.0 % Critically low 20.5-60.[address] [facility] Comment on above: Performed By: #### U CLINT, CMP, LIPID, DBIL, PHOS, MG #### [facility] [address] [place] [address] Dr. Brea Causey MANUAL DIFF REQ NO Normal [facility] Comment on above: Performed By: #### U CLINT, CMP, LIPID, DBIL, PHOS, MG #### [facility] [address] [place] [address] Dr. Brea Causey MCH (RBC) [Entitic mass] 29.4 pg Normal 25.9-34.0 [facility] Comment on above: Performed By: #### U CLINT, CMP, LIPID, DBIL, PHOS, MG #### [facility] [address] [place] [address] Dr. Brea Causey MCHC (RBC) [Mass/Vol] 33.9 g/dL Normal 29.9-35.[address] [facility] Comment on above: Performed By: #### U CLINT, CMP, LIPID, DBIL, PHOS, MG #### [facility] [address] [place] [address] Dr. Brea Causey MCV (RBC) [Entitic vol] 86.7 fL Normal 80.0-94.[address] [facility] Comment on above: Performed By: #### U CLINT, CMP, LIPID, DBIL, PHOS, MG #### [facility] [address] [place] [address] Dr. Brea Causey MONO # 0.5 103/ul Normal 0.3-0.[address] [facility] Comment on above: Performed By: #### U CLINT, CMP, LIPID, DBIL, PHOS, MG #### [facility] [address] [address] [address] rBea Causey Monocytes/100 WBC (Bld) 9.0 % Normal 1.7-12.0 [facility] Comment on above: Performed By: #### U CLINT, CMP, LIPID, DBIL, PHOS, MG #### [facility] [address] [address] [address] Brea Causey NEUT # 4.2 103/ul Normal 1.4-6.[address] [facility] Comment on above: Performed By: #### U CLINT, CMP, LIPID, DBIL, PHOS, MG #### [facility] [address] [place] [address] Dr. Brea Causey Neutrophils/100 WBC (Bld) 70.5 % Normal 43.0-75.0 [facility] Comment on above: Performed By: #### U CLINT, CMP, LIPID, DBIL, PHOS, MG #### [facility] [address] [place] [address] Dr. Brea Causey Platelet mean volume (Bld) [Entitic vol] 8.7 fL Critically low 9.5-13.5 [facility] Comment on above: Performed By: #### U CLINT, CMP, LIPID, DBIL, PHOS, MG #### [facility] [address] [place] [address] Dr. Brea Causey PLT 247 103/ul Normal 150-[address] [facility] Comment on above: Performed By: #### U CLINT, CMP, LIPID, DBIL, PHOS, MG #### [facility] [address] [place] [address] Dr. Brea Causey RBC 4.15 106/ul Critically low 4.70-6.10 [facility] Comment on above: Performed By: #### U CLINT, CMP, LIPID, DBIL, PHOS, MG #### [facility] [address] [place] [address] Dr. Brea Causey WBC 5.9 103/ul Normal 4.0-11.[address] [facility] Comment on above: Performed By: #### U CLINT, CMP, LIPID, DBIL, PHOS, MG #### [facility] [address] [address] [address] Brea Causey GLYCOHEMOGLOBIN A1Con 2022 ADA RECOMMENDATION SEE BELOW Normal [facility] Comment on above: Result Comment: ADA RECOMMENDED LIMIT 4.0 - 6.0 ADA THERAPEUTIC TARGET < 7.0 ACTION SUGGESTED > 7.0 Performed By: #### U CLINT, CMP, LIPID, DBIL, PHOS, MG #### [facility] [address] [address] [address] Brea Causey Glucose [Mass/Vol] 177 mg/dL Normal [facility] Comment on above: Performed By: #### U CLINT, CMP, LIPID, DBIL, PHOS, MG #### [facility] [address] [address] [address] Brea Causey HbA1c (Bld) [Mass fraction] 7.8 % Critically high 4.5-6.2 [facility] Comment on above: Performed By: #### U CLINT, CMP, LIPID, DBIL, PHOS, MG #### [facility] [address] [address] [address] Brea Causey LIPID PROFILEon 08-30-2022 CHOL-HDL RATIO NORM SEE BELOW Normal [facility] Comment on above: Result Comment: 3.3 - 4.4 LOW RISK 4.4 - 7.1 AVERAGE RISK 7.1 - 11.0 MODERATE RISK >11.0 HIGH RISK Performed By: #### U CLINT, CMP, LIPID, DBIL, PHOS, MG #### [facility] [address] [address] [address] Brea Causey Cholesterol [Mass/Vol] 96 mg/dL Normal <=200 Th [facility] Comment on above: Performed By: #### U CLINT, CMP, LIPID, DBIL, PHOS, MG #### [facility] [address] [address] [address] Brea Causey Cholesterol in HDL [Mass/Vol] 48 mg/dL Normal 40-60 [facility] Comment on above: Performed By: #### U CLINT, CMP, LIPID, DBIL, PHOS, MG #### [facility] [address] [address] [address] Brea Causey Cholesterol in LDL [Mass/Vol] 40.2 mg/dL Normal [facility] Comment on above: Performed By: #### U CLINT, CMP, LIPID, DBIL, PHOS, MG #### [facility] [address] [address] [address] Brea Causey Cholesterol.total/Chol esterol in HDL [Mass ratio] 2.0 {ratio} Normal [facility] Comment on above: Performed By: #### U CLINT, CMP, LIPID, DBIL, PHOS, MG #### [facility] [address] [address] [address] Brea Causey HDL NORMAL > or = 60 mg/dl - LO W CARDIOVASCULAR RISK <40 mg/dl - HIGH CARDIOVASCULAR RISK Normal [facility] Comment on above: Performed By: #### U CLINT, CMP, LIPID, DBIL, PHOS, MG #### [facility] [address] [address] [address] Brea Causey LDL CALC NORMAL SEE BELOW Normal [facility] Comment on above: Result Comment: <100 mg/dl OPTIMAL 100 - 129 mg/dl NEAR OR ABOVE OPTIMAL 130 - 159 mg/dl BORDERLINE HIGH 160 - 189 mg/dl HIGH >190 mg/dl VERY HIGH Performed By: #### U CLINT, CMP, LIPID, DBIL, PHOS, MG #### [facility] [address] [address] [address] Brea Causey Triglyceride [Mass/Vol] 39 mg/dL Normal <=[address] [facility] Comment on above: Performed By: #### U CLINT, CMP, LIPID, DBIL, PHOS, MG #### [facility] [address] [address] [address] Brea Causey VLDL CALC 7.8 mg/dL Normal [facility] Comment on above: Performed By: #### U CLINT, CMP, LIPID, DBIL, PHOS, MG #### [facility] [address] [address] [address] Brea Causey MAGNESIUMon 08-30-2022 Magnesium [Mass/Vol] 1.5 mg/dL Critically low 1.8-2.4 [facility] Comment on above: Performed By: #### U CLINT, CMP, LIPID, DBIL, PHOS, MG #### [facility] [address] [place] [address] Dr. Brea Causey PHOSPHORUSon 08-30-2022 Phosphate [Mass/Vol] 4.0 mg/dL Normal 2.6-4.7 [facility] Comment on above: Performed By: #### U CLINT, CMP, LIPID, DBIL, PHOS, MG #### [facility] [address] [place] [address] Dr. Brea Causey PROF 14(COMP METB)on 023 Albumin [Mass/Vol] 3.8 g/dL Normal 3.4-5.0 [facility] Comment on above: Performed By: #### U CLINT, CMP, LIPID, DBIL, PHOS, MG #### [facility] [address] [place] [address] Dr. Brea Causey Albumin/Globulin [Mass ratio] 1.1 {ratio} Normal [facility] Comment on above: Performed By: #### U CLINT, CMP, LIPID, DBIL, PHOS, MG #### [facility] [address] [place] [address] Dr. Brea Causey ALP [Catalytic activity/Vol] 177 U/L Critically high 46-116 [facility] Comment on above: Performed By: #### U CLINT, CMP, LIPID, DBIL, PHOS, MG #### [facility] [address] [place] [address] Dr. Brea Causey ALT [Catalytic activity/Vol] 27 U/L Normal 16-63 [facility] Comment on above: Performed By: #### U CLINT, CMP, LIPID, DBIL, PHOS, MG #### [facility] [address] [place] [address] Dr. Brea Causey Anion gap [Moles/Vol] 12.1 mmol/L Normal [facility] Comment on above: Performed By: #### U CLINT, CMP, LIPID, DBIL, PHOS, MG #### [facility] [address] [address] [address] Brea Causey AST [Catalytic activity/Vol] 19 U/L Normal 15-37 [facility] Comment on above: Performed By: #### U CLINT, CMP, LIPID, DBIL, PHOS, MG #### [facility] [address] [place] [address] Dr. Brea Causey Bilirubin [Mass/Vol] 0.3 mg/dL Normal 0.2-1.0 [facility] Comment on above: Performed By: #### U CLINT, CMP, LIPID, DBIL, PHOS, MG #### [facility] [address] [place] [address] Dr. Brea Causey Calcium [Mass/Vol] 8.0 mg/dL Critically low 8.5-10.1 [facility] Comment on above: Performed By: #### U CLINT, CMP, LIPID, DBIL, PHOS, MG #### [facility] [address] [place] [address] Dr. Brea Causey Chloride [Moles/Vol] 96 mmol/L Critically low 98-107 [facility] Comment on above: Performed By: #### U CLINT, CMP, LIPID, DBIL, PHOS, MG #### [facility] [address] [place] [address] Dr. Brea Causey CO2 [Moles/Vol] 28.0 mmol/L Normal 21.0-32.[address] [facility] Comment on above: Performed By: #### U CLINT, CMP, LIPID, DBIL, PHOS, MG #### [facility] [address] [place] [address] Dr. Brea Causey Creatinine [Mass/Vol] 1.07 mg/dL Normal 0.70-1.30 [facility] Comment on above: Performed By: #### U CLINT, CMP, LIPID, DBIL, PHOS, MG #### [facility] [address] [place] [address] Dr. Brea Causey EGFR-AF GUINEAN >60 Normal >=[address] [facility] Comment on above: Performed By: #### U CLINT, CMP, LIPID, DBIL, PHOS, MG #### [facility] [address] [place] [address] Dr. Brea Causey EGFR-NON AF GUINEAN >60 Normal >=60 [facility] Comment on above: Performed By: #### U CLINT, CMP, LIPID, DBIL, PHOS, MG #### [facility] [address] [address] [address] Brea Causey Globulin (S) [Mass/Vol] 3.5 g/dL Normal [facility] Comment on above: Performed By: #### U CLINT, CMP, LIPID, DBIL, PHOS, MG #### [facility] [address] [place] [address] Dr. Brea Causey Glucose [Mass/Vol] 179 mg/dL Critically high 74-106 [facility] Comment on above: Performed By: #### U CLINT, CMP, LIPID, DBIL, PHOS, MG #### [facility] [address] [place] [address] Dr. Brea Causey Potassium [Moles/Vol] 5.1 mmol/L Normal 3.5-5.1 [facility] Comment on above: Performed By: #### U CLINT, CMP, LIPID, DBIL, PHOS, MG #### [facility] [address] [place] [address] Dr. Brea Causey Protein [Mass/Vol] 7.3 g/dL Normal 6.4-8.2 [facility] Comment on above: Performed By: #### U CLINT, CMP, LIPID, DBIL, PHOS, MG #### [facility] [address] [place] [address] Dr. Brea Causey Sodium [Moles/Vol] 131 mmol/L Critically low 136-145 [facility] Comment on above: Performed By: #### U CLINT, CMP, LIPID, DBIL, PHOS, MG #### [facility] [address] [place] [address] Dr. Brea Causey Urea nitrogen [Mass/Vol] 10.0 mg/dL Normal 7.0-18.0 [facility] Comment on above: Performed By: #### U CLINT, CMP, LIPID, DBIL, PHOS, MG #### [facility] [address] [place] [address] Dr. Brea Causey Urea nitrogen/Creatinine [Mass ratio] 9.3 mg/mg Normal [facility] Comment on above: Performed By: #### U CLINT, CMP, LIPID, DBIL, PHOS, MG #### [facility] [address] [place] [address] Dr. Brea Causey URIC ACID SERUMon 08-30-2022 Urate [Mass/Vol] 6.0 mg/dL Normal 3.5-7.[address] [facility] Comment on above: Performed By: #### U CLINT, CMP, LIPID, DBIL, PHOS, MG #### [facility] [address] [place] [address] Dr. Brea Causey FK506 (TACROLIMUS) WHOLE BLO ODon 08-03-2022 Tacrolimus (FK506), Blood 3.2 ng/mL Normal 2.0-20.[address] [facility] Comment on above: Result Comment: Trou gh (immediately following transplant) 15.0 . Trough (steady state, 2 weeks or more after transplant): 3.0 - 8.0 . Performed by LC-MS/MS technology. Performed By: #### C BC #### [facility] [address] [place] [address] Dr. Brea Causey BILIRUBIN CONJUGATED (DIRECT )on 08-01-2022 BILI, CONJUGATED 0.1 mg/dL Normal 0.0-0.[address] [facility] Comment on above: Performed By: #### U CLINT, CMP, LIPID, DBIL, PHOS, MG #### [facility] [address] [place] [address] Dr. Brea Causey CBC AUTO DIFFon 08-01-2022 BASO # 0.0 103/ul Normal 0.0-0.[address] [facility] Comment on above: Performed By: #### C BC #### [facility] [address] [place] [address] Dr. Brea Causey Basophils/100 WBC (Bld) 0.7 % Normal 0.2-2.[address] [facility] Comment on above: Performed By: #### C BC #### [facility] [address] [place] [address] Dr. Brea Causey EO # 0.1 103/ul Normal 0.0-0.[address] [facility] Comment on above: Performed By: #### C BC #### [facility] [address] [place] [address] Dr. Brea Causey Eosinophils/100 WBC (Bld) 2.4 % Normal 0.9-7.[address] [facility] Comment on above: Performed By: #### C BC #### [facility] [address] [place] [address] Dr. Brea Causey Erythrocyte distribution width (RBC) [Ratio] 13.3 % Normal 11.0-15.0 [facility] Comment on above: Performed By: #### C BC #### [facility] [address] [place] [address] Dr. Brea Causey Hematocrit (Bld) [Volume fraction] 36.5 % Critically low 42.0-54.0 [facility] Comment on above: Performed By: #### C BC #### [facility] [address] [place] [address] Dr. Brea Causey Hemoglobin (Bld) [Mass/Vol] 12.1 g/dL Critically low 14.0-18.0 [facility] Comment on above: Performed By: #### C BC #### [facility] [address] [place] [address] Dr. Brea Causey IG # 0.07 10e3/ul Critically high 0.00-0.03 [facility] Comment on above: Performed By: #### C BC #### [facility] [address] [place] [address] Dr. Brea Causey IG % 1.2 % Critically high 0.0-0.5 [facility] Comment on above: Performed By: #### C BC #### [facility] [address] [place] [address] Dr. Brea Causey LYMPH # 0.9 103/ul Critically low 1.2-3.8 [facility] Comment on above: Performed By: #### C BC #### [facility] [address] [address] [address] Brea Causey Lymphocytes/100 WBC (Bld) 14.5 % Critically low 20.5-60.0 [facility] Comment on above: Performed By: #### C BC #### [facility] [address] [address] [address] Brea Causey MANUAL DIFF REQ NO Normal [facility] Comment on above: Performed By: #### C BC #### [facility] [address] [place] [address] Dr. Brea Causey MCH (RBC) [Entitic mass] 28.8 pg Normal 25.9-34.[address] [facility] Comment on above: Performed By: #### C BC #### [facility] [address] [place] [address] Dr. Brea Causey MCHC (RBC) [Mass/Vol] 33.2 g/dL Normal 29.9-35.[address] [facility] Comment on above: Performed By: #### C BC #### [facility] [address] [place] [address] Dr. Brea Causey MCV (RBC) [Entitic vol] 86.9 fL Normal 80.0-94.0 [facility] Comment on above: Performed By: #### C BC #### [facility] [address] [place] [address] Dr. Brea Causey MONO # 0.6 103/ul Normal 0.3-0.[address] [facility] Comment on above: Performed By: #### C BC #### [facility] [address] [place] [address] Dr. Brea Causey Monocytes/100 WBC (Bld) 10.3 % Normal 1.7-12.[address] [facility] Comment on above: Performed By: #### C BC #### [facility] [address] [place] [address] Dr. Brea Causey NEUT # 4.2 103/ul Normal 1.4-6.[address] [facility] Comment on above: Performed By: #### C BC #### [facility] [address] [address] [address] Brea Causey Neutrophils/100 WBC (Bld) 70.9 % Normal 43.0-75.0 [facility] Comment on above: Performed By: #### C BC #### [facility] [address] [address] [address] Brea Causey Platelet mean volume (Bld) [Entitic vol] 9.1 fL Critically low 9.5-13.5 [facility] Comment on above: Performed By: #### C BC #### [facility] [address] [address] [address] Brea Causey PLT 248 103/ul Normal 150-450 [facility] Comment on above: Performed By: #### C BC #### [facility] [address] [address] [address] Brea Causey RBC 4.20 106/ul Critically low 4.70-6.10 [facility] Comment on above: Performed By: #### C BC #### [facility] [address] [address] [address] Brea Causey WBC 5.9 103/ul Normal 4.0-11.0 [facility] Comment on above: Performed By: #### C BC #### [facility] [address] [place] [address] Dr. Brea Causey LIPID PROFILEon 08-01-2022 CHOL-HDL RATIO NORM SEE BELOW Normal [facility] Comment on above: Result Comment: 3.3 - 4.4 LOW RISK 4.4 - 7.1 AVERAGE RISK 7.1 - 11.0 MODERATE RISK >11.0 HIGH RISK Performed By: #### U CLINT, CMP, LIPID, DBIL, PHOS, MG #### [facility] [address] [address] [address] Brea Causey Cholesterol [Mass/Vol] 95 mg/dL Normal <=200 [facility] Comment on above: Performed By: #### U CLINT, CMP, LIPID, DBIL, PHOS, MG #### [facility] [address] [address] [address] Brea Causey Cholesterol in HDL [Mass/Vol] 49 mg/dL Normal 40-60 [facility] Comment on above: Performed By: #### U CLINT, CMP, LIPID, DBIL, PHOS, MG #### [facility] [address] [address] [address] Brea Causey Cholesterol in LDL [Mass/Vol] 35.4 mg/dL Normal [facility] Comment on above: Performed By: #### U CLINT, CMP, LIPID, DBIL, PHOS, MG #### [facility] [address] [address] [address] Brea Causey Cholesterol.total/Chol esterol in HDL [Mass ratio] 1.9 {ratio} Normal [facility] Comment on above: Performed By: #### U CLINT, CMP, LIPID, DBIL, PHOS, MG #### [facility] [address] [address] [address] Brea Causey HDL NORMAL > or = 60 mg/dl - LO W CARDIOVASCULAR RISK <40 mg/dl - HIGH CARDIOVASCULAR RISK Normal [facility] Comment on above: Performed By: #### U CLINT, CMP, LIPID, DBIL, PHOS, MG #### [facility] [address] [address] [address] Brea Causey LDL CALC NORMAL SEE BELOW Normal [facility] Comment on above: Result Comment: <100 mg/dl OPTIMAL 100 - 129 mg/dl NEAR OR ABOVE OPTIMAL 130 - 159 mg/dl BORDERLINE HIGH 160 - 189 mg/dl HIGH >190 mg/dl VERY HIGH Performed By: #### U CLINT, CMP, LIPID, DBIL, PHOS, MG #### [facility] [address] [address] [address] Brea Causey Triglyceride [Mass/Vol] 53 mg/dL Normal <=[address] [facility] Comment on above: Performed By: #### U CLINT, CMP, LIPID, DBIL, PHOS, MG #### [facility] [address] [address] [address] Brea Causey VLDL CALC 10.6 mg/dL Normal [facility] Comment on above: Performed By: #### U CLINT, CMP, LIPID, DBIL, PHOS, MG #### [facility] [address] [address] [address] Brea Causey MAGNESIUMon 08-01-2022 Magnesium [Mass/Vol] 1.5 mg/dL Critically low 1.8-2.4 [facility] Comment on above: Performed By: #### U CLINT, CMP, LIPID, DBIL, PHOS, MG #### [facility] [address] [address] [address] Brea Causey PHOSPHORUSon 08-01-2022 Phosphate [Mass/Vol] 3.8 mg/dL Normal 2.6-4.7 [facility] Comment on above: Performed By: #### U CLINT, CMP, LIPID, DBIL, PHOS, MG #### [facility] [address] [address] [address] Brea Causey PROF 14(COMP METB)on 023 Albumin [Mass/Vol] 4.1 g/dL Normal 3.4-5.0 [facility] Comment on above: Performed By: #### U CLINT, CMP, LIPID, DBIL, PHOS, MG #### [facility] [address] [address] [address] Brea Causey Albumin/Globulin [Mass ratio] 1.3 {ratio} Normal [facility] Comment on above: Performed By: #### U CLINT, CMP, LIPID, DBIL, PHOS, MG #### [facility] [address] [address] [address] Brea Causey ALP [Catalytic activity/Vol] 197 U/L Critically high 46-116 [facility] Comment on above: Performed By: #### U CLINT, CMP, LIPID, DBIL, PHOS, MG #### [facility] [address] [address] [address] Brea Causey ALT [Catalytic activity/Vol] 26 U/L Normal 16-63 [facility] Comment on above: Performed By: #### U CLINT, CMP, LIPID, DBIL, PHOS, MG #### [facility] [address] [address] [address] Brea Causey Anion gap [Moles/Vol] 12.6 mmol/L Normal [facility] Comment on above: Performed By: #### U CLINT, CMP, LIPID, DBIL, PHOS, MG #### [facility] [address] [place] [address] Dr. Brea Causey AST [Catalytic activity/Vol] 20 U/L Normal 15-37 [facility] Comment on above: Performed By: #### U CLINT, CMP, LIPID, DBIL, PHOS, MG #### [facility] [address] [place] [address] Dr. Brea Causey Bilirubin [Mass/Vol] 0.4 mg/dL Normal 0.2-1.0 [facility] Comment on above: Performed By: #### U CLINT, CMP, LIPID, DBIL, PHOS, MG #### [facility] [address] [place] [address] Dr. Brea Causey Calcium [Mass/Vol] 7.9 mg/dL Critically low 8.5-10.1 [facility] Comment on above: Performed By: #### U CLINT, CMP, LIPID, DBIL, PHOS, MG #### [facility] [address] [place] [address] Dr. Brea Causey Chloride [Moles/Vol] 97 mmol/L Critically low 98-107 [facility] Comment on above: Performed By: #### U CLINT, CMP, LIPID, DBIL, PHOS, MG #### [facility] [address] [place] [address] Dr. Brea Causey CO2 [Moles/Vol] 28.9 mmol/L Normal 21.0-32.0 [facility] Comment on above: Performed By: #### U CLINT, CMP, LIPID, DBIL, PHOS, MG #### [facility] [address] [place] [address] Dr. Brea Cauesy Creatinine [Mass/Vol] 0.98 mg/dL Normal 0.70-1.30 [facility] Comment on above: Performed By: #### U CLINT, CMP, LIPID, DBIL, PHOS, MG #### [facility] [address] [place] [address] Dr. Brea Causey EGFR-AF GUINEAN >60 Normal >=60 [facility] Comment on above: Performed By: #### U CLINT, CMP, LIPID, DBIL, PHOS, MG #### [facility] [address] [place] [address] Dr. Brea Causey EGFR-NON AF GUINEAN >60 Normal >=60 [facility] Comment on above: Performed By: #### U CLINT, CMP, LIPID, DBIL, PHOS, MG #### [facility] [address] [place] [address] Dr. Brea Causey Globulin (S) [Mass/Vol] 3.2 g/dL Normal [facility] Comment on above: Performed By: #### U CLINT, CMP, LIPID, DBIL, PHOS, MG #### [facility] [address] [place] [address] Dr. Brea Causey Glucose [Mass/Vol] 174 mg/dL Critically high 74-106 [facility] Comment on above: Performed By: #### U CLINT, CMP, LIPID, DBIL, PHOS, MG #### [facility] [address] [place] [address] Dr. Brea Causey Potassium [Moles/Vol] 4.5 mmol/L Normal 3.5-5.1 [facility] Comment on above: Performed By: #### U CLINT, CMP, LIPID, DBIL, PHOS, MG #### [facility] [address] [place] [address] Dr. Brea Causey Protein [Mass/Vol] 7.3 g/dL Normal 6.4-8.2 [facility] Comment on above: Performed By: #### U CLINT, CMP, LIPID, DBIL, PHOS, MG #### [facility] [address] [place] [address] Dr. Brea Causey Sodium [Moles/Vol] 134 mmol/L Critically low 136-145 [facility] Comment on above: Performed By: #### U CLINT, CMP, LIPID, DBIL, PHOS, MG #### [facility] [address] [place] [address] Dr. Brea Causey Urea nitrogen [Mass/Vol] 8.0 mg/dL Normal 7.0-18.0 [facility] Comment on above: Performed By: #### U CLINT, CMP, LIPID, DBIL, PHOS, MG #### [facility] [address] [place] [address] Dr. Brea Causey Urea nitrogen/Creatinine [Mass ratio] 8.2 mg/mg Normal [facility] Comment on above: Performed By: #### U CLINT, CMP, LIPID, DBIL, PHOS, MG #### [facility] [address] [place] [address] Dr. Brea Causey URIC ACID SERUMon 08-01-2022 Urate [Mass/Vol] 5.8 mg/dL Normal 3.5-7.[address] [facility] Comment on above: Performed By: #### U CLINT, CMP, LIPID, DBIL, PHOS, MG #### [facility] [address] [place] [address] Dr. Brea Causey FK506 (TACROLIMUS) WHOLE BLO ODon 07-07-2022 Tacrolimus (FK506), Blood 3.6 ng/mL Normal 2.0-20.0 [facility] Comment on above: Result Comment: Trou gh (immediately following transplant) 15.0 . Trough (steady state, 2 weeks or more after transplant): 3.0 - 8.0 . Performed by LC-MS/MS technology. Performed By: #### C BC #### [facility] [address] [place] [address] Dr. Brea Causey BILIRUBIN CONJUGATED (DIRECT )on 07-04-2022 BILI, CONJUGATED 0.1 mg/dL Normal 0.0-0.[address] [facility] Comment on above: Performed By: #### B KVIRUS #### [facility] [address] [place] [address] Dr. rBea Causey CBC AUTO DIFFon 07-04-2022 BASO # 0.0 103/ul Normal 0.0-0.1 [facility] Comment on above: Performed By: #### U CLINT, CMP, LIPID, DBIL, PHOS, MG #### [facility] [address] [place] [address] Dr. Brea Causey Basophils/100 WBC (Bld) 0.5 % Normal 0.2-2.[address] [facility] Comment on above: Performed By: #### U CLINT, CMP, LIPID, DBIL, PHOS, MG #### [facility] [address] [place] [address] Dr. Brea Causey EO # 0.2 103/ul Normal 0.0-0.[address] [facility] Comment on above: Performed By: #### U CLINT, CMP, LIPID, DBIL, PHOS, MG #### [facility] [address] [place] [address] Dr. Brea Causey Eosinophils/100 WBC (Bld) 2.6 % Normal 0.9-7.0 [facility] Comment on above: Performed By: #### U CLINT, CMP, LIPID, DBIL, PHOS, MG #### [facility] [address] [place] [address] Dr. Brea Causey Erythrocyte distribution width (RBC) [Ratio] 13.3 % Normal 11.0-15.0 [facility] Comment on above: Performed By: #### U CLINT, CMP, LIPID, DBIL, PHOS, MG #### [facility] [address] [place] [address] Dr. Brea Causey Hematocrit (Bld) [Volume fraction] 37.2 % Critically low 42.0-54.0 [facility] Comment on above: Performed By: #### U CLINT, CMP, LIPID, DBIL, PHOS, MG #### [facility] [address] [place] [address] Dr. Brea Causey Hemoglobin (Bld) [Mass/Vol] 12.4 g/dL Critically low 14.0-18.[address] [facility] Comment on above: Performed By: #### U CLINT, CMP, LIPID, DBIL, PHOS, MG #### [facility] [address] [place] [address] Dr. Brea Causey IG # 0.09 10e3/ul Critically high 0.00-0.03 [facility] Comment on above: Performed By: #### U CLINT, CMP, LIPID, DBIL, PHOS, MG #### [facility] [address] [address] [address] Brea Causey IG % 1.4 % Critically high 0.0-0.5 [facility] Comment on above: Performed By: #### U CLINT, CMP, LIPID, DBIL, PHOS, MG #### [facility] [address] [place] [address] Dr. Brea Causey LYMPH # 1.0 103/ul Critically low 1.2-3.8 [facility] Comment on above: Performed By: #### U CLINT, CMP, LIPID, DBIL, PHOS, MG #### [facility] [address] [place] [address] Dr. Brea Causey Lymphocytes/100 WBC (Bld) 15.2 % Critically low 20.5-60.0 [facility] Comment on above: Performed By: #### U CLINT, CMP, LIPID, DBIL, PHOS, MG #### [facility] [address] [place] [address] Dr. Brea Causey MANUAL DIFF REQ NO Normal [facility] Comment on above: Performed By: #### U CLINT, CMP, LIPID, DBIL, PHOS, MG #### [facility] [address] [place] [address] Dr. Brea Causey MCH (RBC) [Entitic mass] 28.8 pg Normal 25.9-34.0 [facility] Comment on above: Performed By: #### U CLINT, CMP, LIPID, DBIL, PHOS, MG #### [facility] [address] [place] [address] Dr. Brea Causey MCHC (RBC) [Mass/Vol] 33.3 g/dL Normal 29.9-35.2 [facility] Comment on above: Performed By: #### U CLINT, CMP, LIPID, DBIL, PHOS, MG #### [facility] [address] [place] [address] Dr. Brea Causey MCV (RBC) [Entitic vol] 86.5 fL Normal 80.0-94.[address] [facility] Comment on above: Performed By: #### U CLINT, CMP, LIPID, DBIL, PHOS, MG #### [facility] [address] [place] [address] Dr. Brea Causey MONO # 0.7 103/ul Normal 0.3-0.8 [facility] Comment on above: Performed By: #### U CLINT, CMP, LIPID, DBIL, PHOS, MG #### [facility] [address] [place] [address] Dr. Brea Causey Monocytes/100 WBC (Bld) 10.0 % Normal 1.7-12.[address] [facility] Comment on above: Performed By: #### U CLINT, CMP, LIPID, DBIL, PHOS, MG #### [facility] [address] [place] [address] Dr. Brea Causey NEUT # 4.6 103/ul Normal 1.4-6.[address] [facility] Comment on above: Performed By: #### U CLINT, CMP, LIPID, DBIL, PHOS, MG #### [facility] [address] [place] [address] Dr. Brea Causey Neutrophils/100 WBC (Bld) 70.3 % Normal 43.0-75.[address] [facility] Comment on above: Performed By: #### U CLINT, CMP, LIPID, DBIL, PHOS, MG #### [facility] [address] [place] [address] Dr. Brea Causey Platelet mean volume (Bld) [Entitic vol] 8.8 fL Critically low 9.5-13.[address] [facility] Comment on above: Performed By: #### U CLINT, CMP, LIPID, DBIL, PHOS, MG #### [facility] [address] [place] [address] Dr. Brea Causey PLT 240 103/ul Normal 150-[address] [facility] Comment on above: Performed By: #### U CLINT, CMP, LIPID, DBIL, PHOS, MG #### [facility] [address] [place] [address] Dr. Brea Causey RBC 4.30 106/ul Critically low 4.70-6.10 [facility] Comment on above: Performed By: #### U CLINT, CMP, LIPID, DBIL, PHOS, MG #### [facility] [address] [address] [address] Brea Causey WBC 6.5 103/ul Normal 4.0-11.0 [facility] Comment on above: Performed By: #### U CLINT, CMP, LIPID, DBIL, PHOS, MG #### [facility] [address] [address] [address] Brea Causey LIPID PROFILEon 07-04-2022 CHOL-HDL RATIO NORM SEE BELOW Normal [facility] Comment on above: Result Comment: 3.3 - 4.4 LOW RISK 4.4 - 7.1 AVERAGE RISK 7.1 - 11.0 MODERATE RISK >11.0 HIGH RISK Performed By: #### U CLINT, CMP, LIPID, DBIL, PHOS, MG #### [facility] [address] [place] [address] Dr. Brea Causey Cholesterol [Mass/Vol] 86 mg/dL Normal <=200 [facility] Comment on above: Performed By: #### U CLINT, CMP, LIPID, DBIL, PHOS, MG #### [facility] [address] [place] [address] Dr. Brea Causey Cholesterol in HDL [Mass/Vol] 44 mg/dL Normal 40-60 [facility] Comment on above: Performed By: #### U CLINT, CMP, LIPID, DBIL, PHOS, MG #### [facility] [address] [place] [address] Dr. Brea Causey Cholesterol in LDL [Mass/Vol] 28.0 mg/dL Normal [facility] Comment on above: Performed By: #### U CLINT, CMP, LIPID, DBIL, PHOS, MG #### [facility] [address] [place] [address] Dr. Brea Causey Cholesterol.total/Chol esterol in HDL [Mass ratio] 2.0 {ratio} Normal [facility] Comment on above: Performed By: #### U CLINT, CMP, LIPID, DBIL, PHOS, MG #### [facility] [address] [address] [address] Brea Causey HDL NORMAL > or = 60 mg/dl - LO W CARDIOVASCULAR RISK <40 mg/dl - HIGH CARDIOVASCULAR RISK Normal [facility] Comment on above: Performed By: #### U CLINT, CMP, LIPID, DBIL, PHOS, MG #### [facility] [address] [address] [address] Brea Causey LDL CALC NORMAL SEE BELOW Normal [facility] Comment on above: Result Comment: <100 mg/dl OPTIMAL 100 - 129 mg/dl NEAR OR ABOVE OPTIMAL 130 - 159 mg/dl BORDERLINE HIGH 160 - 189 mg/dl HIGH >190 mg/dl VERY HIGH Performed By: #### U CLINT, CMP, LIPID, DBIL, PHOS, MG #### [facility] [address] [address] [address] Brea Causey Triglyceride [Mass/Vol] 70 mg/dL Normal <=150 [facility] Comment on above: Performed By: #### U CLINT, CMP, LIPID, DBIL, PHOS, MG #### [facility] [address] [address] [address] Brea Causey VLDL CALC 14.0 mg/dL Normal [facility] Comment on above: Performed By: #### U CLINT, CMP, LIPID, DBIL, PHOS, MG #### [facility] [address] [place] [address] Dr. Brea Causey MAGNESIUMon 07-04-2022 Magnesium [Mass/Vol] 1.4 mg/dL Critically low 1.8-2.[address] [facility] Comment on above: Performed By: #### U CLINT, CMP, LIPID, DBIL, PHOS, MG #### [facility] [address] [address] [address] Brea Causey PHOSPHORUSon 07-04-2022 Phosphate [Mass/Vol] 4.1 mg/dL Normal 2.6-4.7 [facility] Comment on above: Performed By: #### U CLINT, CMP, LIPID, DBIL, PHOS, MG #### [facility] [address] [place] [address] Dr. Brea Causey PROF 14(COMP METB)on 023 Albumin [Mass/Vol] 4.0 g/dL Normal 3.4-5.0 [facility] Comment on above: Performed By: #### B KVIRUS #### [facility] [address] [address] [address] Brea Causey Albumin/Globulin [Mass ratio] 1.3 {ratio} Normal [facility] Comment on above: Performed By: #### B KVIRUS #### [facility] [address] [address] [address] Brea Causey ALP [Catalytic activity/Vol] 212 U/L Critically high 46-116 [facility] Comment on above: Performed By: #### B KVIRUS #### [facility] [address] [place] [address] Dr. Brea Causey ALT [Catalytic activity/Vol] 31 U/L Normal 16-63 [facility] Comment on above: Performed By: #### B KVIRUS #### [facility] [address] [place] [address] Dr. Brea Causey Anion gap [Moles/Vol] 11.9 mmol/L Normal [facility] Comment on above: Performed By: #### B KVIRUS #### [facility] [address] [place] [address] Dr. Brea Causey AST [Catalytic activity/Vol] 21 U/L Normal 15-37 [facility] Comment on above: Performed By: #### B KVIRUS #### [facility] [address] [place] [address] Dr. Brea Causey Bilirubin [Mass/Vol] 0.3 mg/dL Normal 0.2-1.0 [facility] Comment on above: Performed By: #### B KVIRUS #### [facility] [address] [place] [address] Dr. Brea Causey Calcium [Mass/Vol] 8.1 mg/dL Critically low 8.5-10.1 [facility] Comment on above: Performed By: #### B KVIRUS #### [facility] [address] [place] [address] Dr. Brea Causey Chloride [Moles/Vol] 97 mmol/L Critically low 98-107 [facility] Comment on above: Performed By: #### B KVIRUS #### [facility] [address] [place] [address] Dr. Brea Causey CO2 [Moles/Vol] 26.8 mmol/L Normal 21.0-32.[address] [facility] Comment on above: Performed By: #### B KVIRUS #### [facility] [address] [place] [address] Dr. Brea Causey Creatinine [Mass/Vol] 0.99 mg/dL Normal 0.70-1.[address] [facility] Comment on above: Performed By: #### B KVIRUS #### [facility] [address] [place] [address] Dr. Brea Causey EGFR-AF GUINEAN >60 Normal >=[address] [facility] Comment on above: Performed By: #### B KVIRUS #### [facility] [address] [place] [address] Dr. Brea Causey EGFR-NON AF GUINEAN >60 Normal >=[address] [facility] Comment on above: Performed By: #### B KVIRUS #### [facility] [address] [place] [address] Dr. Brea Causey Globulin (S) [Mass/Vol] 3.2 g/dL Normal [facility] Comment on above: Performed By: #### B KVIRUS #### [facility] [address] [place] [address] Dr. Brea Causey Glucose [Mass/Vol] 169 mg/dL Critically high 74-106 [facility] Comment on above: Performed By: #### B KVIRUS #### [facility] [address] [place] [address] Dr. Brea Causey Potassium [Moles/Vol] 4.7 mmol/L Normal 3.5-5.1 [facility] Comment on above: Performed By: #### B KVIRUS #### [facility] [address] [place] [address] Dr. Brea Causey Protein [Mass/Vol] 7.2 g/dL Normal 6.4-8.2 [facility] Comment on above: Performed By: #### B KVIRUS #### [facility] [address] [place] [address] Dr. Brea Causey Sodium [Moles/Vol] 131 mmol/L Critically low 136-145 [facility] Comment on above: Performed By: #### B KVIRUS #### [facility] [address] [address] [address] Brea Causey Urea nitrogen [Mass/Vol] 9.0 mg/dL Normal 7.0-18.0 [facility] Comment on above: Performed By: #### B KVIRUS #### [facility] [address] [place] [address] Dr. Brea Causey Urea nitrogen/Creatinine [Mass ratio] 9.1 mg/mg Normal [facility] Comment on above: Performed By: #### B KVIRUS #### [facility] [address] [place] [address] Dr. Brea Causey URIC ACID SERUMon 07-04-2022 Urate [Mass/Vol] 6.1 mg/dL Normal 3.5-7.2 [facility] Comment on above: Performed By: #### U CLINT, CMP, LIPID, DBIL, PHOS, MG #### [facility] [address] [place] [address] Dr. Brea Causey TESTOSTERONE, FREE,DIRECT, T OTALon 05-28-2022 Free Testosterone(Direct) 5.9 pg/mL Critically low 6.6-18.1 [facility] Comment on above: Result Comment: Perf ormed at: BN Performed By: #### U CLINT, CMP, LIPID, DBIL, PHOS, MG #### [facility] [address] [place] [address] Dr. Brea Causey Testosterone [Mass/Vol] 513 ng/dL Normal 264-916 [facility] Comment on above: Result Comment: Adul t male reference interval is based on a population of healthy nonobese males (BMI <30) between 19 and 39 years old. Steven et.al. JCEM 2017,102;9588-2325. PMID: [id number]. Performed at: CB Performed By: #### U CLINT, CMP, LIPID, DBIL, PHOS, MG #### [facility] [address] [address] [address] Brea Causey FK506 (TACROLIMUS) WHOLE BLO ODon 05-26-2022 Tacrolimus (FK506), Blood 3.9 ng/mL Normal 2.0-20.0 [facility] Comment on above: Result Comment: Trou gh (immediately following transplant) 15.0 . Trough (steady state, 2 weeks or more after transplant): 3.0 - 8.0 . Performed by LC-MS/MS technology. Performed By: #### B KVIRUS #### [facility] [address] [place] [address] Dr. Brea Causey BK VIRUS PCR QUANTon 023 BKV DNA QUANT PCR PLASMA Negative Normal Negative [facility] Comment on above: Result Comment: No B K DNA detected. . The linear range of the assay is 22 - 100,000,000 IU/mL. Performed By: #### U CLINT, CMP, LIPID, DBIL, PHOS, MG #### [facility] [address] [address] [address] Brea Causey Log10 BKV DNA Plasma Normal [facility] Comment on above: Performed By: #### U CLINT, CMP, LIPID, DBIL, PHOS, MG #### [facility] [address] [address] [address] Brea Causey BILIRUBIN CONJUGATED (DIRECT )on 05-23-2022 BILI, CONJUGATED 0.2 mg/dL Normal 0.0-0.2 [facility] Comment on above: Performed By: #### C BC #### [facility] [address] [address] [address] Brea Causye CBC AUTO DIFFon 05-23-2022 BASO # 0.0 103/ul Normal 0.0-0.1 [facility] Comment on above: Performed By: #### B KVIRUS #### [facility] [address] [place] [address] Dr. Brea Causey Basophils/100 WBC (Bld) 0.6 % Normal 0.2-2.0 [facility] Comment on above: Performed By: #### B KVIRUS #### [facility] [address] [place] [address] Dr. Brea Causey EO # 0.1 103/ul Normal 0.0-0.7 [facility] Comment on above: Performed By: #### B KVIRUS #### [facility] [address] [place] [address] Dr. Brea Causey Eosinophils/100 WBC (Bld) 1.7 % Normal 0.9-7.0 [facility] Comment on above: Performed By: #### B KVIRUS #### [facility] [address] [place] [address] Dr. Brea Causey Erythrocyte distribution width (RBC) [Ratio] 13.4 % Normal 11.0-15.0 [facility] Comment on above: Performed By: #### B KVIRUS #### [facility] [address] [place] [address] Dr. Brea Causey Hematocrit (Bld) [Volume fraction] 38.8 % Critically low 42.0-54.0 [facility] Comment on above: Performed By: #### B KVIRUS #### [facility] [address] [place] [address] Dr. Brea Causey Hemoglobin (Bld) [Mass/Vol] 12.4 g/dL Critically low 14.0-18.0 [facility] Comment on above: Performed By: #### B KVIRUS #### [facility] [address] [place] [address] Dr. Brea Causey IG # 0.07 10e3/ul Critically high 0.00-0.03 [facility] Comment on above: Performed By: #### B KVIRUS #### [facility] [address] [place] [address] Dr. Brea Causey IG % 1.1 % Critically high 0.0-0.5 [facility] Comment on above: Performed By: #### B KVIRUS #### [facility] [address] [place] [address] Dr. Brea Causey LYMPH # 0.9 103/ul Critically low 1.2-3.8 [facility] Comment on above: Performed By: #### B KVIRUS #### [facility] [address] [place] [address] Dr. Brea Causey Lymphocytes/100 WBC (Bld) 14.1 % Critically low 20.5-60.0 [facility] Comment on above: Performed By: #### B KVIRUS #### [facility] [address] [place] [address] Dr. Brea Causey MANUAL DIFF REQ NO Normal [facility] Comment on above: Performed By: #### B KVIRUS #### [facility] [address] [place] [address] Dr. Brea Causey MCH (RBC) [Entitic mass] 29.3 pg Normal 25.9-34.0 [facility] Comment on above: Performed By: #### B KVIRUS #### [facility] [address] [place] [address] Dr. Brea Causey MCHC (RBC) [Mass/Vol] 32.0 g/dL Normal 29.9-35.2 [facility] Comment on above: Performed By: #### B KVIRUS #### [facility] [address] [place] [address] Dr. Brea Causey MCV (RBC) [Entitic vol] 91.7 fL Normal 80.0-94.0 [facility] Comment on above: Performed By: #### B KVIRUS #### [facility] [address] [place] [address] Dr. Brea Causey MONO # 0.7 103/ul Normal 0.3-0.[address] [facility] Comment on above: Performed By: #### B KVIRUS #### [facility] [address] [place] [address] Dr. Brea Causey Monocytes/100 WBC (Bld) 10.0 % Normal 1.7-12.0 [facility] Comment on above: Performed By: #### B KVIRUS #### [facility] [address] [place] [address] Dr. Brea Causey NEUT # 4.7 103/ul Normal 1.4-6.5 [facility] Comment on above: Performed By: #### B KVIRUS #### [facility] [address] [address] [address] Brea Causey Neutrophils/100 WBC (Bld) 72.5 % Normal 43.0-75.0 [facility] Comment on above: Performed By: #### B KVIRUS #### [facility] [address] [address] [address] Brea Causey Platelet mean volume (Bld) [Entitic vol] 9.4 fL Critically low 9.5-13.5 [facility] Comment on above: Performed By: #### B KVIRUS #### [facility] [address] [place] [address] Dr. Brea Causey PLT 256 103/ul Normal 150-450 [facility] Comment on above: Performed By: #### B KVIRUS #### [facility] [address] [address] [address] Brea Causey RBC 4.23 106/ul Critically low 4.70-6.10 [facility] Comment on above: Performed By: #### B KVIRUS #### [facility] [address] [place] [address] Dr. Brea Causey WBC 6.5 103/ul Normal 4.0-11.0 [facility] Comment on above: Performed By: #### B KVIRUS #### [facility] [address] [place] [address] Dr. Brea Causey GLYCOHEMOGLOBIN A1Con 2022 ADA RECOMMENDATION SEE BELOW Normal [facility] Comment on above: Result Comment: ADA RECOMMENDED LIMIT 4.0 - 6.0 ADA THERAPEUTIC TARGET < 7.0 ACTION SUGGESTED > 7.0 Performed By: #### U CLINT, CMP, LIPID, DBIL, PHOS, MG #### [facility] [address] [place] [address] Dr. Brea Causey Glucose [Mass/Vol] 160 mg/dL Normal [facility] Comment on above: Performed By: #### U CLINT, CMP, LIPID, DBIL, PHOS, MG #### [facility] [address] [address] [address] Brea Causey HbA1c (Bld) [Mass fraction] 7.2 % Critically high 4.5-6.2 [facility] Comment on above: Performed By: #### U CLINT, CMP, LIPID, DBIL, PHOS, MG #### [facility] [address] [address] [address] Brea Causey LIPID PROFILEon 05-23-2022 CHOL-HDL RATIO NORM SEE BELOW Normal [facility] Comment on above: Result Comment: 3.3 - 4.4 LOW RISK 4.4 - 7.1 AVERAGE RISK 7.1 - 11.0 MODERATE RISK >11.0 HIGH RISK Performed By: #### C BC #### [facility] [address] [place] [address] Dr. Brea Causey Cholesterol [Mass/Vol] 87 mg/dL Normal <=200 [facility] Comment on above: Performed By: #### C BC #### [facility] [address] [place] [address] Dr. Brea Causey Cholesterol in HDL [Mass/Vol] 54 mg/dL Normal 40-60 [facility] Comment on above: Performed By: #### C BC #### [facility] [address] [place] [address] Dr. Brea Causey Cholesterol in LDL [Mass/Vol] 24.6 mg/dL Normal [facility] Comment on above: Performed By: #### C BC #### [facility] [address] [place] [address] Dr. Brea Causey Cholesterol.total/Chol esterol in HDL [Mass ratio] 1.6 {ratio} Normal [facility] Comment on above: Performed By: #### C BC #### [facility] [address] [place] [address] Dr. Brea Causey HDL NORMAL > or = 60 mg/dl - LO W CARDIOVASCULAR RISK <40 mg/dl - HIGH CARDIOVASCULAR RISK Normal [facility] Comment on above: Performed By: #### C BC #### [facility] [address] [address] [address] Brea Causey LDL CALC NORMAL SEE BELOW Normal [facility] Comment on above: Result Comment: <100 mg/dl OPTIMAL 100 - 129 mg/dl NEAR OR ABOVE OPTIMAL 130 - 159 mg/dl BORDERLINE HIGH 160 - 189 mg/dl HIGH >190 mg/dl VERY HIGH Performed By: #### C BC #### [facility] [address] [address] [address] Brea Causey Triglyceride [Mass/Vol] 42 mg/dL Normal <=[address] [facility] Comment on above: Performed By: #### C BC #### [facility] [address] [address] [address] Brea Causey VLDL CALC 8.4 mg/dL Normal [facility] Comment on above: Performed By: #### C BC #### [facility] [address] [place] [address] Dr. Brea Causey MAGNESIUMon 05-23-2022 Magnesium [Mass/Vol] 1.4 mg/dL Critically low 1.8-2.4 [facility] Comment on above: Performed By: #### C BC #### [facility] [address] [place] [address] Dr. Brea Causey PHOSPHORUSon 05-23-2022 Phosphate [Mass/Vol] 3.6 mg/dL Normal 2.6-4.7 [facility] Comment on above: Performed By: #### C BC #### [facility] [address] [place] [address] Dr. Brea Causey PROF 14(COMP METB)on 023 Albumin [Mass/Vol] 3.9 g/dL Normal 3.4-5.0 [facility] Comment on above: Performed By: #### C BC #### [facility] [address] [place] [address] Dr. Brea Causey Albumin/Globulin [Mass ratio] 1.2 {ratio} Normal [facility] Comment on above: Performed By: #### C BC #### [facility] [address] [place] [address] Dr. Brea Causey ALP [Catalytic activity/Vol] 190 U/L Critically high 46-116 [facility] Comment on above: Performed By: #### C BC #### [facility] [address] [place] [address] Dr. Brea Causey ALT [Catalytic activity/Vol] 26 U/L Normal 16-63 [facility] Comment on above: Performed By: #### C BC #### [facility] [address] [address] [address] Brea Causey Anion gap [Moles/Vol] 13.1 mmol/L Normal [facility] Comment on above: Performed By: #### C BC #### [facility] [address] [place] [address] Dr. Brea Causey AST [Catalytic activity/Vol] 18 U/L Normal 15-37 [facility] Comment on above: Performed By: #### C BC #### [facility] [address] [place] [address] Dr. Brea Causey Bilirubin [Mass/Vol] 0.4 mg/dL Normal 0.2-1.0 [facility] Comment on above: Performed By: #### C BC #### [facility] [address] [place] [address] Dr. Brea Causey Calcium [Mass/Vol] 7.8 mg/dL Critically low 8.5-10.1 [facility] Comment on above: Performed By: #### C BC #### [facility] [address] [place] [address] Dr. Brea Causey Chloride [Moles/Vol] 95 mmol/L Critically low 98-107 [facility] Comment on above: Performed By: #### C BC #### [facility] [address] [address] [address] Brea Causey CO2 [Moles/Vol] 28.8 mmol/L Normal 21.0-32.0 [facility] Comment on above: Performed By: #### C BC #### [facility] [address] [place] [address] Dr. Brea Causey Creatinine [Mass/Vol] 1.03 mg/dL Normal 0.70-1.30 [facility] Comment on above: Performed By: #### C BC #### [facility] [address] [address] [address] Brea Causey EGFR-AF GUINEAN >60 Normal >=60 [facility] Comment on above: Performed By: #### C BC #### [facility] [address] [address] [address] Brea Causey EGFR-NON AF GUINEAN >60 Normal >=60 [facility] Comment on above: Performed By: #### C BC #### [facility] [address] [address] [address] Brea Causey Globulin (S) [Mass/Vol] 3.2 g/dL Normal [facility] Comment on above: Performed By: #### C BC #### [facility] [address] [address] [address] Brea Causey Glucose [Mass/Vol] 155 mg/dL Critically high 74-106 [facility] Comment on above: Performed By: #### C BC #### [facility] [address] [address] [address] Brea Causey Potassium [Moles/Vol] 4.9 mmol/L Normal 3.5-5.1 [facility] Comment on above: Performed By: #### C BC #### [facility] [address] [address] [address] Brea Causey Protein [Mass/Vol] 7.1 g/dL Normal 6.4-8.2 [facility] Comment on above: Performed By: #### C BC #### [facility] [address] [address] [address] Brea Causey Sodium [Moles/Vol] 132 mmol/L Critically low 136-145 [facility] Comment on above: Performed By: #### C BC #### [facility] [address] [address] [address] Brea Causey Urea nitrogen [Mass/Vol] 8.0 mg/dL Normal 7.0-18.0 [facility] Comment on above: Performed By: #### C BC #### [facility] [address] [place] [address] Dr. Brea Causey Urea nitrogen/Creatinine [Mass ratio] 7.8 mg/mg Normal [facility] Comment on above: Performed By: #### C BC #### [facility] [address] [place] [address] Dr. Brea Causey URIC ACID SERUMon 05-23-2022 Urate [Mass/Vol] 5.6 mg/dL Normal 3.5-7.2 [facility] Comment on above: Performed By: #### C BC #### [facility] [address] [place] [address] Dr. Brea Causey TESTOSTERONE, FREE,DIRECT, T OTALon 05-03-2022 Free Testosterone(Direct) 7.4 pg/mL Normal 6.6-18.1 [facility] Comment on above: Result Comment: Perf ormed at: BN Performed By: #### U CLINT, CMP, LIPID, DBIL, PHOS, MG #### [facility] [address] [place] [address] Dr. Brea Causey Testosterone [Mass/Vol] 494 ng/dL Normal 264-916 [facility] Comment on above: Result Comment: Adul t male reference interval is based on a population of healthy nonobese males (BMI <30) between 19 and 39 years old. Steven et.al. JCEM 2017,102;3989-1172. PMID: [id number]. Performed at: CB Performed By: #### U CLINT, CMP, LIPID, DBIL, PHOS, MG #### [facility] [address] [place] [address] Dr. Brea Causey FK506 (TACROLIMUS) WHOLE BLO ODon 05-02-2022 Tacrolimus (FK506), Blood 4.3 ng/mL Normal 2.0-20.0 [facility] Comment on above: Result Comment: Trou gh (immediately following transplant) 15.0 . Trough (steady state, 2 weeks or more after transplant): 3.0 - 8.0 . Performed by LC-MS/MS technology. Performed By: #### C BC #### [facility] [address] [place] [address] Dr. Brea Causey BILIRUBIN CONJUGATED (DIRECT )on 04-30-2022 BILI, CONJUGATED 0.1 mg/dL Normal 0.0-0.[address] [facility] Comment on above: Performed By: #### U CLINT, CMP, LIPID, DBIL, PHOS, MG #### [facility] [address] [address] [address] Brea Causey CBC AUTO DIFFon 04-30-2022 BASO # 0.0 103/ul Normal 0.0-0.[address] [facility] Comment on above: Performed By: #### U CLINT, CMP, LIPID, DBIL, PHOS, MG #### [facility] [address] [address] [address] Brea Causey Basophils/100 WBC (Bld) 0.5 % Normal 0.2-2.[address] [facility] Comment on above: Performed By: #### U CLINT, CMP, LIPID, DBIL, PHOS, MG #### [facility] [address] [address] [address] Brea Causey EO # 0.1 103/ul Normal 0.0-0.[address] [facility] Comment on above: Performed By: #### U CLINT, CMP, LIPID, DBIL, PHOS, MG #### [facility] [address] [address] [address] Brea Causey Eosinophils/100 WBC (Bld) 2.1 % Normal 0.9-7.[address] [facility] Comment on above: Performed By: #### U CLINT, CMP, LIPID, DBIL, PHOS, MG #### [facility] [address] [address] [address] Brea Causey Erythrocyte distribution width (RBC) [Ratio] 13.2 % Normal 11.0-15.[address] [facility] Comment on above: Performed By: #### U CLINT, CMP, LIPID, DBIL, PHOS, MG #### [facility] [address] [address] [address] Brea Causey Hematocrit (Bld) [Volume fraction] 37.0 % Critically low 42.0-54.[address] [facility] Comment on above: Performed By: #### U CLINT, CMP, LIPID, DBIL, PHOS, MG #### [facility] [address] [address] [address] Brea Causey Hemoglobin (Bld) [Mass/Vol] 12.4 g/dL Critically low 14.0-18.0 [facility] Comment on above: Performed By: #### U CLINT, CMP, LIPID, DBIL, PHOS, MG #### [facility] [address] [address] [address] Brea Causey IG # 0.05 10e3/ul Critically high 0.00-0.03 [facility] Comment on above: Performed By: #### U CLINT, CMP, LIPID, DBIL, PHOS, MG #### [facility] [address] [place] [address] Dr. Brea Causey IG % 0.9 % Critically high 0.0-0.5 [facility] Comment on above: Performed By: #### U CLINT, CMP, LIPID, DBIL, PHOS, MG #### [facility] [address] [address] [address] Brea Causey LYMPH # 1.0 103/ul Critically low 1.2-3.8 [facility] Comment on above: Performed By: #### U CLINT, CMP, LIPID, DBIL, PHOS, MG #### [facility] [address] [place] [address] Dr. Brea Causey Lymphocytes/100 WBC (Bld) 16.4 % Critically low 20.5-60.0 [facility] Comment on above: Performed By: #### U CLINT, CMP, LIPID, DBIL, PHOS, MG #### [facility] [address] [address] [address] Brea Causey MANUAL DIFF REQ NO Normal [facility] Comment on above: Performed By: #### U CLINT, CMP, LIPID, DBIL, PHOS, MG #### [facility] [address] [address] [address] Brea Causey MCH (RBC) [Entitic mass] 29.0 pg Normal 25.9-34.[address] [facility] Comment on above: Performed By: #### U CLINT, CMP, LIPID, DBIL, PHOS, MG #### [facility] [address] [place] [address] Dr. Brea Causey MCHC (RBC) [Mass/Vol] 33.5 g/dL Normal 29.9-35.[address] [facility] Comment on above: Performed By: #### U CLINT, CMP, LIPID, DBIL, PHOS, MG #### [facility] [address] [place] [address] Dr. Brea Causey MCV (RBC) [Entitic vol] 86.7 fL Normal 80.0-94.[address] [facility] Comment on above: Performed By: #### U CLINT, CMP, LIPID, DBIL, PHOS, MG #### [facility] [address] [place] [address] Dr. Brea Causey MONO # 0.7 103/ul Normal 0.3-0.[address] [facility] Comment on above: Performed By: #### U CLINT, CMP, LIPID, DBIL, PHOS, MG #### [facility] [address] [place] [address] Dr. Brea Causey Monocytes/100 WBC (Bld) 11.6 % Normal 1.7-12.0 [facility] Comment on above: Performed By: #### U CLINT, CMP, LIPID, DBIL, PHOS, MG #### [facility] [address] [place] [address] Dr. Brea Causey NEUT # 4.0 103/ul Normal 1.4-6.[address] [facility] Comment on above: Performed By: #### U CLINT, CMP, LIPID, DBIL, PHOS, MG #### [facility] [address] [place] [address] Dr. Brea Causey Neutrophils/100 WBC (Bld) 68.5 % Normal 43.0-75.[address] [facility] Comment on above: Performed By: #### U CLINT, CMP, LIPID, DBIL, PHOS, MG #### [facility] [address] [place] [address] Dr. Brea Causey Platelet mean volume (Bld) [Entitic vol] 9.2 fL Critically low 9.5-13.5 [facility] Comment on above: Performed By: #### U CLINT, CMP, LIPID, DBIL, PHOS, MG #### [facility] [address] [address] [address] Brea Causey PLT 231 103/ul Normal 150-450 [facility] Comment on above: Performed By: #### U CLINT, CMP, LIPID, DBIL, PHOS, MG #### [facility] [address] [address] [address] Brea Causey RBC 4.27 106/ul Critically low 4.70-6.10 [facility] Comment on above: Performed By: #### U CLINT, CMP, LIPID, DBIL, PHOS, MG #### [facility] [address] [address] [address] Brea Causey WBC 5.9 103/ul Normal 4.0-11.0 [facility] Comment on above: Performed By: #### U CLINT, CMP, LIPID, DBIL, PHOS, MG #### [facility] [address] [address] [address] Brea Causey LIPID PROFILEon 04-30-2022 CHOL-HDL RATIO NORM SEE BELOW Normal [facility] Comment on above: Result Comment: 3.3 - 4.4 LOW RISK 4.4 - 7.1 AVERAGE RISK 7.1 - 11.0 MODERATE RISK >11.0 HIGH RISK Performed By: #### U CLINT, CMP, LIPID, DBIL, PHOS, MG #### [facility] [address] [address] [address] Brea Causey Cholesterol [Mass/Vol] 78 mg/dL Normal <=200 [facility] Comment on above: Performed By: #### U CLINT, CMP, LIPID, DBIL, PHOS, MG #### [facility] [address] [address] [address] Brea Causey Cholesterol in HDL [Mass/Vol] 41 mg/dL Normal 40-60 [facility] Comment on above: Performed By: #### U CLINT, CMP, LIPID, DBIL, PHOS, MG #### [facility] [address] [address] [address] Brea Causey Cholesterol in LDL [Mass/Vol] 17.8 mg/dL Normal [facility] Comment on above: Performed By: #### U CLINT, CMP, LIPID, DBIL, PHOS, MG #### [facility] [address] [address] [address] Brea Causey Cholesterol.total/Chol esterol in HDL [Mass ratio] 1.9 {ratio} Normal [facility] Comment on above: Performed By: #### U CLINT, CMP, LIPID, DBIL, PHOS, MG #### [facility] [address] [place] [address] Dr. Brea Causey HDL NORMAL > or = 60 mg/dl - LO W CARDIOVASCULAR RISK <40 mg/dl - HIGH CARDIOVASCULAR RISK Normal [facility] Comment on above: Performed By: #### U CLINT, CMP, LIPID, DBIL, PHOS, MG #### [facility] [address] [place] [address] Dr. Brea Causey LDL CALC NORMAL SEE BELOW Normal [facility] Comment on above: Result Comment: <100 mg/dl OPTIMAL 100 - 129 mg/dl NEAR OR ABOVE OPTIMAL 130 - 159 mg/dl BORDERLINE HIGH 160 - 189 mg/dl HIGH >190 mg/dl VERY HIGH Performed By: #### U CLINT, CMP, LIPID, DBIL, PHOS, MG #### [facility] [address] [address] [address] Brea Causey Triglyceride [Mass/Vol] 96 mg/dL Normal <=[address] [facility] Comment on above: Performed By: #### U CLINT, CMP, LIPID, DBIL, PHOS, MG #### [facility] [address] [address] [address] Brea Causey VLDL CALC 19.2 mg/dL Normal [facility] Comment on above: Performed By: #### U CLINT, CMP, LIPID, DBIL, PHOS, MG #### [facility] [address] [address] [address] Brea Causey MAGNESIUMon 12-20-2022 Magnesium [Mass/Vol] 1.7 mg/dL Critically low 1.8-2.4 [facility] Comment on above: Performed By: #### U CLINT, CMP, LIPID, DBIL, PHOS, MG #### [facility] [address] [address] [address] Brea Causey PHOSPHORUSon 04-30-2022 Phosphate [Mass/Vol] 3.6 mg/dL Normal 2.6-4.7 [facility] Comment on above: Performed By: #### U CLINT, CMP, LIPID, DBIL, PHOS, MG #### [facility] [address] [address] [address] Brea Causey PROF 14(COMP METB)on 022 Albumin [Mass/Vol] 4.0 g/dL Normal 3.4-5.0 [facility] Comment on above: Performed By: #### U CLINT, CMP, LIPID, DBIL, PHOS, MG #### [facility] [address] [address] [address] Brea Causey Albumin/Globulin [Mass ratio] 1.3 {ratio} Normal [facility] Comment on above: Performed By: #### U CLINT, CMP, LIPID, DBIL, PHOS, MG #### [facility] [address] [place] [address] Dr. Brea Causey ALP [Catalytic activity/Vol] 196 U/L Critically high 46-116 [facility] Comment on above: Performed By: #### U CLINT, CMP, LIPID, DBIL, PHOS, MG #### [facility] [address] [address] [address] Brea aCusey ALT [Catalytic activity/Vol] 21 U/L Normal 16-63 [facility] Comment on above: Performed By: #### U CLINT, CMP, LIPID, DBIL, PHOS, MG #### [facility] [address] [address] [address] Brea Causey Anion gap [Moles/Vol] 10.5 mmol/L Normal [facility] Comment on above: Performed By: #### U CLINT, CMP, LIPID, DBIL, PHOS, MG #### [facility] [address] [address] [address] Brea Causey AST [Catalytic activity/Vol] 16 U/L Normal 15-37 [facility] Comment on above: Performed By: #### U CLINT, CMP, LIPID, DBIL, PHOS, MG #### [facility] [address] [address] [address] Brea Causey Bilirubin [Mass/Vol] 0.3 mg/dL Normal 0.2-1.0 [facility] Comment on above: Performed By: #### U CLINT, CMP, LIPID, DBIL, PHOS, MG #### [facility] [address] [place] [address] Dr. Brea Causey Calcium [Mass/Vol] 8.6 mg/dL Normal 8.5-10.1 [facility] Comment on above: Performed By: #### U CLINT, CMP, LIPID, DBIL, PHOS, MG #### [facility] [address] [place] [address] Dr. Brea Causey Chloride [Moles/Vol] 95 mmol/L Critically low 98-107 [facility] Comment on above: Performed By: #### U CLINT, CMP, LIPID, DBIL, PHOS, MG #### [facility] [address] [place] [address] Dr. Brea Causey CO2 [Moles/Vol] 30.9 mmol/L Normal 21.0-32.[address] [facility] Comment on above: Performed By: #### U CLINT, CMP, LIPID, DBIL, PHOS, MG #### [facility] [address] [place] [address] Dr. Brea Causey Creatinine [Mass/Vol] 1.00 mg/dL Normal 0.70-1.30 [facility] Comment on above: Performed By: #### U CLINT, CMP, LIPID, DBIL, PHOS, MG #### [facility] [address] [place] [address] Dr. Brea Causey EGFR-AF GUINEAN >60 Normal >=[address] [facility] Comment on above: Performed By: #### U CLINT, CMP, LIPID, DBIL, PHOS, MG #### [facility] [address] [address] [address] Brea Causey EGFR-NON AF GUINEAN >60 Normal >=60 [facility] Comment on above: Performed By: #### U CLINT, CMP, LIPID, DBIL, PHOS, MG #### [facility] [address] [address] [address] Brea Causey Globulin (S) [Mass/Vol] 3.2 g/dL Normal [facility] Comment on above: Performed By: #### U CLINT, CMP, LIPID, DBIL, PHOS, MG #### [facility] [address] [address] [address] Brea Causey Glucose [Mass/Vol] 160 mg/dL Critically high 74-106 [facility] Comment on above: Performed By: #### U CLINT, CMP, LIPID, DBIL, PHOS, MG #### [facility] [address] [address] [address] Brea Causey Potassium [Moles/Vol] 5.4 mmol/L Critically high 3.5-5.1 [facility] Comment on above: Performed By: #### U CLINT, CMP, LIPID, DBIL, PHOS, MG #### [facility] [address] [address] [address] Brea Causey Protein [Mass/Vol] 7.2 g/dL Normal 6.4-8.2 [facility] Comment on above: Performed By: #### U CLINT, CMP, LIPID, DBIL, PHOS, MG #### [facility] [address] [address] [address] Brea Causey Sodium [Moles/Vol] 131 mmol/L Critically low 136-145 [facility] Comment on above: Performed By: #### U CLINT, CMP, LIPID, DBIL, PHOS, MG #### [facility] [address] [place] [address] Dr. Brea Causey Urea nitrogen [Mass/Vol] 11.0 mg/dL Normal 7.0-18.0 [facility] Comment on above: Performed By: #### U CLINT, CMP, LIPID, DBIL, PHOS, MG #### [facility] [address] [place] [address] Dr. Brea Causey Urea nitrogen/Creatinine [Mass ratio] 11.0 mg/mg Normal [facility] Comment on above: Performed By: #### U CLINT, CMP, LIPID, DBIL, PHOS, MG #### [facility] [address] [place] [address] Dr. Brea Causey URIC ACID SERUMon 04-30-2022 Urate [Mass/Vol] 5.9 mg/dL Normal 3.5-7.[address] [facility] Comment on above: Performed By: #### U CLINT, CMP, LIPID, DBIL, PHOS, MG #### [facility] [address] [place] [address] Dr. Brea Causey FK506 (TACROLIMUS) WHOLE BLO ODon 04-06-2022 Tacrolimus (FK506), Blood 3.0 ng/mL Normal 2.0-20.0 [facility] Comment on above: Result Comment: Trou gh (immediately following transplant) 15.0 . Trough (steady state, 2 weeks or more after transplant): 3.0 - 8.0 . Performed by LC-MS/MS technology. Performed By: #### U CLINT, CMP, LIPID, DBIL, PHOS, MG #### [facility] [address] [place] [address] Dr. Brea Causey BILIRUBIN CONJUGATED (DIRECT )on 04-03-2022 BILI, CONJUGATED 0.1 mg/dL Normal 0.0-0.[address] [facility] Comment on above: Performed By: #### U CLINT, CMP, LIPID, DBIL, PHOS, MG #### [facility] [address] [place] [address] Dr. Brea Causey CBC AUTO DIFFon 04-03-2022 BASO # 0.0 103/ul Normal 0.0-0.1 [facility] Comment on above: Performed By: #### U CLINT, CMP, LIPID, DBIL, PHOS, MG #### [facility] [address] [place], [place] [id number] Dr. Brea Causey Basophils/100 WBC (Bld) 0.5 % Normal 0.2-2.[address] [facility] Comment on above: Performed By: #### U CLINT, CMP, LIPID, DBIL, PHOS, MG #### [facility] [address] [place] [address] Dr. Brea Causey EO # 0.1 103/ul Normal 0.0-0.[address] [facility] Comment on above: Performed By: #### U CLINT, CMP, LIPID, DBIL, PHOS, MG #### [facility] [address] [place] [address] Dr. Brea Causey Eosinophils/100 WBC (Bld) 2.5 % Normal 0.9-7.[address] [facility] Comment on above: Performed By: #### U CLINT, CMP, LIPID, DBIL, PHOS, MG #### [facility] [address] [place] [address] Dr. Brea Causey Erythrocyte distribution width (RBC) [Ratio] 13.3 % Normal 11.0-15.[address] [facility] Comment on above: Performed By: #### U CLINT, CMP, LIPID, DBIL, PHOS, MG #### [facility] [address] [place] [address] Dr. Brea Causey Hematocrit (Bld) [Volume fraction] 36.4 % Critically low 42.0-54.[address] [facility] Comment on above: Performed By: #### U CLINT, CMP, LIPID, DBIL, PHOS, MG #### [facility] [address] [place] [address] Dr. Brea Causey Hemoglobin (Bld) [Mass/Vol] 12.3 g/dL Critically low 14.0-18.[address] [facility] Comment on above: Performed By: #### U CLINT, CMP, LIPID, DBIL, PHOS, MG #### [facility] [address] [place] [address] Dr. Brea Causey IG # 0.03 10e3/ul Normal 0.00-0.[address] [facility] Comment on above: Performed By: #### U CLINT, CMP, LIPID, DBIL, PHOS, MG #### [facility] [address] [address] [address] Brea Causey IG % 0.5 % Normal 0.0-0.5 [facility] Comment on above: Performed By: #### U CLINT, CMP, LIPID, DBIL, PHOS, MG #### [facility] [address] [address] [address] Brea Causey LYMPH # 0.9 103/ul Critically low 1.2-3.8 [facility] Comment on above: Performed By: #### U CLINT, CMP, LIPID, DBIL, PHOS, MG #### [facility] [address] [place] [address] Dr. Brea Causey Lymphocytes/100 WBC (Bld) 16.9 % Critically low 20.5-60.0 [facility] Comment on above: Performed By: #### U CLINT, CMP, LIPID, DBIL, PHOS, MG #### [facility] [address] [place] [address] Dr. Brea Causey MANUAL DIFF REQ NO Normal [facility] Comment on above: Performed By: #### U CLINT, CMP, LIPID, DBIL, PHOS, MG #### [facility] [address] [place] [address] Dr. Brea Causey MCH (RBC) [Entitic mass] 29.3 pg Normal 25.9-34.0 [facility] Comment on above: Performed By: #### U CLINT, CMP, LIPID, DBIL, PHOS, MG #### [facility] [address] [place] [address] Dr. Brea Causey MCHC (RBC) [Mass/Vol] 33.8 g/dL Normal 29.9-35.[address] [facility] Comment on above: Performed By: #### U CLINT, CMP, LIPID, DBIL, PHOS, MG #### [facility] [address] [place] [address] Dr. Brea Causey MCV (RBC) [Entitic vol] 86.7 fL Normal 80.0-94.0 [facility] Comment on above: Performed By: #### U CLINT, CMP, LIPID, DBIL, PHOS, MG #### [facility] [address] [address] [address] Brea Causey MONO # 0.6 103/ul Normal 0.3-0.[address] [facility] Comment on above: Performed By: #### U CLINT, CMP, LIPID, DBIL, PHOS, MG #### [facility] [address] [address] [address] Brea Causey Monocytes/100 WBC (Bld) 10.1 % Normal 1.7-12.[address] [facility] Comment on above: Performed By: #### U CLINT, CMP, LIPID, DBIL, PHOS, MG #### [facility] [address] [address] [address] Brea Causey NEUT # 3.9 103/ul Normal 1.4-6.5 [facility] Comment on above: Performed By: #### U CLINT, CMP, LIPID, DBIL, PHOS, MG #### [facility] [address] [place] [address] Dr. Brea Causey Neutrophils/100 WBC (Bld) 69.5 % Normal 43.0-75.[address] [facility] Comment on above: Performed By: #### U CLINT, CMP, LIPID, DBIL, PHOS, MG #### [facility] [address] [place] [address] Dr. Brea Causey Platelet mean volume (Bld) [Entitic vol] 9.2 fL Critically low 9.5-13.[address] [facility] Comment on above: Performed By: #### U CLINT, CMP, LIPID, DBIL, PHOS, MG #### [facility] [address] [address] [address] Brea Causey PLT 228 103/ul Normal 150-[address] [facility] Comment on above: Performed By: #### U CLINT, CMP, LIPID, DBIL, PHOS, MG #### [facility] [address] [address] [address] Brea Causey RBC 4.20 106/ul Critically low 4.70-6.10 [facility] Comment on above: Performed By: #### U CLINT, CMP, LIPID, DBIL, PHOS, MG #### [facility] [address] [address] [address] Brea Causey WBC 5.6 103/ul Normal 4.0-11.0 [facility] Comment on above: Performed By: #### U CLINT, CMP, LIPID, DBIL, PHOS, MG #### [facility] [address] [place] [address] Dr. Brea Causey LIPID PROFILEon 04-03-2022 CHOL-HDL RATIO NORM SEE BELOW Normal [facility] Comment on above: Result Comment: 3.3 - 4.4 LOW RISK 4.4 - 7.1 AVERAGE RISK 7.1 - 11.0 MODERATE RISK >11.0 HIGH RISK Performed By: #### U CLINT, CMP, LIPID, DBIL, PHOS, MG #### [facility] [address] [place] [address] Dr. Brea Causey Cholesterol [Mass/Vol] 84 mg/dL Normal <=200 Th [facility] Comment on above: Performed By: #### U CLINT, CMP, LIPID, DBIL, PHOS, MG #### [facility] [address] [place] [address] Dr. Brea Causey Cholesterol in HDL [Mass/Vol] 45 mg/dL Normal 40-60 [facility] Comment on above: Performed By: #### U CLINT, CMP, LIPID, DBIL, PHOS, MG #### [facility] [address] [place] [address] Dr. Brea Causey Cholesterol in LDL [Mass/Vol] 22.8 mg/dL Normal [facility] Comment on above: Performed By: #### U CLINT, CMP, LIPID, DBIL, PHOS, MG #### [facility] [address] [place] [address] Dr. Brea Causey Cholesterol.total/Chol esterol in HDL [Mass ratio] 1.9 {ratio} Normal [facility] Comment on above: Performed By: #### U CLINT, CMP, LIPID, DBIL, PHOS, MG #### [facility] [address] [address] [address] Brea Causey HDL NORMAL > or = 60 mg/dl - LO W CARDIOVASCULAR RISK <40 mg/dl - HIGH CARDIOVASCULAR RISK Normal [facility] Comment on above: Performed By: #### U CLINT, CMP, LIPID, DBIL, PHOS, MG #### [facility] [address] [address] [address] Brea Causey LDL CALC NORMAL SEE BELOW Normal [facility] Comment on above: Result Comment: <100 mg/dl OPTIMAL 100 - 129 mg/dl NEAR OR ABOVE OPTIMAL 130 - 159 mg/dl BORDERLINE HIGH 160 - 189 mg/dl HIGH >190 mg/dl VERY HIGH Performed By: #### U CLINT, CMP, LIPID, DBIL, PHOS, MG #### [facility] [address] [address] [address] Brea Causey Triglyceride [Mass/Vol] 81 mg/dL Normal <=150 [facility] Comment on above: Performed By: #### U CLINT, CMP, LIPID, DBIL, PHOS, MG #### [facility] [address] [address] [address] Brea Causey VLDL CALC 16.2 mg/dL Normal [facility] Comment on above: Performed By: #### U CLINT, CMP, LIPID, DBIL, PHOS, MG #### [facility] [address] [address] [address] Brea Causey MAGNESIUMon 04-03-2022 Magnesium [Mass/Vol] 1.6 mg/dL Critically low 1.8-2.[address] [facility] Comment on above: Performed By: #### U CLINT, CMP, LIPID, DBIL, PHOS, MG #### [facility] [address] [address] [address] Brea Causey PHOSPHORUSon 04-03-2022 Phosphate [Mass/Vol] 3.9 mg/dL Normal 2.6-4.[address] [facility] Comment on above: Performed By: #### U CLINT, CMP, LIPID, DBIL, PHOS, MG #### [facility] [address] [address] [address] Brea Causey PROF 14(COMP METB)on 022 Albumin [Mass/Vol] 4.0 g/dL Normal 3.4-5.0 [facility] Comment on above: Performed By: #### U CLINT, CMP, LIPID, DBIL, PHOS, MG #### [facility] [address] [place] [address] Dr. Brea Causey Albumin/Globulin [Mass ratio] 1.2 {ratio} Normal [facility] Comment on above: Performed By: #### U CLINT, CMP, LIPID, DBIL, PHOS, MG #### [facility] [address] [place] [address] Dr. Brea Causey ALP [Catalytic activity/Vol] 196 U/L Critically high 46-116 [facility] Comment on above: Performed By: #### U CLINT, CMP, LIPID, DBIL, PHOS, MG #### [facility] [address] [place] [address] Dr. Brea Causey ALT [Catalytic activity/Vol] 19 U/L Normal 16-63 [facility] Comment on above: Performed By: #### U CLINT, CMP, LIPID, DBIL, PHOS, MG #### [facility] [address] [place] [address] Dr. Brea Causey Anion gap [Moles/Vol] 10.2 mmol/L Normal [facility] Comment on above: Performed By: #### U CLINT, CMP, LIPID, DBIL, PHOS, MG #### [facility] [address] [place] [address] Dr. rBea Causey AST [Catalytic activity/Vol] 15 U/L Normal 15-37 [facility] Comment on above: Performed By: #### U CLINT, CMP, LIPID, DBIL, PHOS, MG #### [facility] [address] [place] [address] Dr. Brea Causey Bilirubin [Mass/Vol] 0.3 mg/dL Normal 0.2-1.0 [facility] Comment on above: Performed By: #### U CLINT, CMP, LIPID, DBIL, PHOS, MG #### [facility] [address] [address] [address] Brea Causey Calcium [Mass/Vol] 8.2 mg/dL Critically low 8.5-10.[address] [facility] Comment on above: Performed By: #### U CLINT, CMP, LIPID, DBIL, PHOS, MG #### [facility] [address] [address] [address] Brea Causey Chloride [Moles/Vol] 97 mmol/L Critically low 98-107 [facility] Comment on above: Performed By: #### U CLINT, CMP, LIPID, DBIL, PHOS, MG #### [facility] [address] [address] [address] Brea Causey CO2 [Moles/Vol] 28.2 mmol/L Normal 21.0-32.0 [facility] Comment on above: Performed By: #### U CLINT, CMP, LIPID, DBIL, PHOS, MG #### [facility] [address] [place] [address] Dr. Brea Causey Creatinine [Mass/Vol] 1.00 mg/dL Normal 0.70-1.30 [facility] Comment on above: Performed By: #### U CLINT, CMP, LIPID, DBIL, PHOS, MG #### [facility] [address] [address] [address] Brea Causey EGFR-AF GUINEAN >60 Normal >=60 [facility] Comment on above: Performed By: #### U CLINT, CMP, LIPID, DBIL, PHOS, MG #### [facility] [address] [place] [address] Dr. Brea Causey EGFR-NON AF GUINEAN >60 Normal >=60 [facility] Comment on above: Performed By: #### U CLINT, CMP, LIPID, DBIL, PHOS, MG #### [facility] [address] [address] [address] Brea Causey Globulin (S) [Mass/Vol] 3.3 g/dL Normal [facility] Comment on above: Performed By: #### U CLINT, CMP, LIPID, DBIL, PHOS, MG #### [facility] [address] [address] [address] Brea Causey Glucose [Mass/Vol] 164 mg/dL Critically high 74-106 [facility] Comment on above: Performed By: #### U CLINT, CMP, LIPID, DBIL, PHOS, MG #### [facility] [address] [address] [address] Brea Causey Potassium [Moles/Vol] 4.4 mmol/L Normal 3.5-5.1 [facility] Comment on above: Performed By: #### U CLINT, CMP, LIPID, DBIL, PHOS, MG #### [facility] [address] [address] [address] Brea Causey Protein [Mass/Vol] 7.3 g/dL Normal 6.4-8.2 [facility] Comment on above: Performed By: #### U CLINT, CMP, LIPID, DBIL, PHOS, MG #### [facility] [address] [address] [address] Brea Causey Sodium [Moles/Vol] 131 mmol/L Critically low 136-145 [facility] Comment on above: Performed By: #### U CLINT, CMP, LIPID, DBIL, PHOS, MG #### [facility] [address] [address] [address] Brea Causey Urea nitrogen [Mass/Vol] 13.0 mg/dL Normal 7.0-18.0 [facility] Comment on above: Performed By: #### U CLINT, CMP, LIPID, DBIL, PHOS, MG #### [facility] [address] [place] [address] Dr. Brea Causey Urea nitrogen/Creatinine [Mass ratio] 13.0 mg/mg Normal [facility] Comment on above: Performed By: #### U CLINT, CMP, LIPID, DBIL, PHOS, MG #### [facility] [address] [place] [address] Dr. Brea Causey URIC ACID SERUMon 04-03-2022 Urate [Mass/Vol] 6.1 mg/dL Normal 3.5-7.2 [facility] Comment on above: Performed By: #### U CLINT, CMP, LIPID, DBIL, PHOS, MG #### [facility] [address] [address] [address] Brea Causey TESTOSTERONE, FREE,DIRECT, T OTALon 03-13-2022 Free Testosterone(Direct) 6.9 pg/mL Normal 6.6-18.1 [facility] Comment on above: Result Comment: Perf ormed at: BN Performed By: #### T ESTFRD #### [facility] [address] [address] [address] Brea Causey Testosterone [Mass/Vol] 428 ng/dL Normal 264-916 [facility] Comment on above: Result Comment: Adul t male reference interval is based on a population of healthy nonobese males (BMI <30) between 19 and 39 years old. daniel Harris.al. JCEM 2017,102;4201-2035. PMID: [id number]. Performed at: CB Performed By: #### T ESTFRD #### [facility] [address] [place] [address] Dr. Brae Causey BK VIRUS PCR QUANTon 022 BKV DNA QUANT PCR PLASMA Negative Normal Negative [facility] Comment on above: Result Comment: No B K DNA detected. . The linear range of the assay is 22 - 100,000,000 IU/mL. Performed By: #### B KVIRUS #### [facility] [address] [place] [address] Dr. Brea Causey Log10 BKV DNA Plasma Normal [facility] Comment on above: Performed By: #### B KVIRUS #### [facility] [address] [place] [address] Dr. Brea Causey FK506 (TACROLIMUS) WHOLE BLO ODon 03-11-2022 Tacrolimus (FK506), Blood 4.7 ng/mL Normal 2.0-20.0 [facility] Comment on above: Result Comment: Trou gh (immediately following transplant) 15.0 . Trough (steady state, 2 weeks or more after transplant): 3.0 - 8.0 . Performed by LC-MS/MS technology. Performed By: #### C BC #### [facility] [address] [address] [address] Brea Causey BILIRUBIN CONJUGATED (DIRECT )on 03-08-2022 BILI, CONJUGATED 0.1 mg/dL Normal 0.0-0.2 [facility] Comment on above: Performed By: #### U CLINT, CMP, LIPID, DBIL, PHOS, MG #### [facility] [address] [address] [address] Brea Causey CBC AUTO DIFFon 03-08-2022 BASO # 0.0 103/ul Normal 0.0-0.1 [facility] Comment on above: Performed By: #### U CLINT, CMP, LIPID, DBIL, PHOS, MG #### [facility] [address] [place] [address] Dr. Brea Causey Basophils/100 WBC (Bld) 0.7 % Normal 0.2-2.0 [facility] Comment on above: Performed By: #### U CLINT, CMP, LIPID, DBIL, PHOS, MG #### [facility] [address] [place] [address] Dr. Brea Causey EO # 0.2 103/ul Normal 0.0-0.[address] [facility] Comment on above: Performed By: #### U CLINT, CMP, LIPID, DBIL, PHOS, MG #### [facility] [address] [place] [address] Dr. Brea Causey Eosinophils/100 WBC (Bld) 3.1 % Normal 0.9-7.[address] [facility] Comment on above: Performed By: #### U CLINT, CMP, LIPID, DBIL, PHOS, MG #### [facility] [address] [place] [address] Dr. Brea Causey Erythrocyte distribution width (RBC) [Ratio] 13.3 % Normal 11.0-15.[address] [facility] Comment on above: Performed By: #### U CLINT, CMP, LIPID, DBIL, PHOS, MG #### [facility] [address] [place] [address] Dr. Brea Causey Hematocrit (Bld) [Volume fraction] 35.7 % Critically low 42.0-54.0 [facility] Comment on above: Performed By: #### U CLINT, CMP, LIPID, DBIL, PHOS, MG #### [facility] [address] [place] [address] Dr. Brea Causey Hemoglobin (Bld) [Mass/Vol] 12.0 g/dL Critically low 14.0-18.[address] [facility] Comment on above: Performed By: #### U CLINT, CMP, LIPID, DBIL, PHOS, MG #### [facility] [address] [place] [address] Dr. Brea Causey IG # 0.06 10e3/ul Critically high 0.00-0.03 [facility] Comment on above: Performed By: #### U CLINT, CMP, LIPID, DBIL, PHOS, MG #### [facility] [address] [place] [address] Dr. Brea Causey IG % 1.0 % Critically high 0.0-0.5 [facility] Comment on above: Performed By: #### U CLINT, CMP, LIPID, DBIL, PHOS, MG #### [facility] [address] [place] [address] Dr. Brea Causey LYMPH # 0.8 103/ul Critically low 1.2-3.8 [facility] Comment on above: Performed By: #### U CLINT, CMP, LIPID, DBIL, PHOS, MG #### [facility] [address] [place] [address] Dr. Brea Causey Lymphocytes/100 WBC (Bld) 12.9 % Critically low 20.5-60.0 [facility] Comment on above: Performed By: #### U CLINT, CMP, LIPID, DBIL, PHOS, MG #### [facility] [address] [place] [address] Dr. Brea Causey MANUAL DIFF REQ NO Normal [facility] Comment on above: Performed By: #### U CLINT, CMP, LIPID, DBIL, PHOS, MG #### [facility] [address] [place] [address] Dr. Brea Causey MCH (RBC) [Entitic mass] 29.5 pg Normal 25.9-34.[address] [facility] Comment on above: Performed By: #### U CLINT, CMP, LIPID, DBIL, PHOS, MG #### [facility] [address] [place] [address] Dr. Brea Causey MCHC (RBC) [Mass/Vol] 33.6 g/dL Normal 29.9-35.[address] [facility] Comment on above: Performed By: #### U CLINT, CMP, LIPID, DBIL, PHOS, MG #### [facility] [address] [place] [address] Dr. Brea Causey MCV (RBC) [Entitic vol] 87.7 fL Normal 80.0-94.[address] [facility] Comment on above: Performed By: #### U CLINT, CMP, LIPID, DBIL, PHOS, MG #### [facility] [address] [place] [address] Dr. Brea Causey MONO # 0.6 103/ul Normal 0.3-0.[address] [facility] Comment on above: Performed By: #### U CLINT, CMP, LIPID, DBIL, PHOS, MG #### [facility] [address] [place] [address] Dr. Brea Causey Monocytes/100 WBC (Bld) 9.8 % Normal 1.7-12.[address] [facility] Comment on above: Performed By: #### U CLINT, CMP, LIPID, DBIL, PHOS, MG #### [facility] [address] [place] [address] Dr. Brea Causey NEUT # 4.4 103/ul Normal 1.4-6.[address] [facility] Comment on above: Performed By: #### U CLINT, CMP, LIPID, DBIL, PHOS, MG #### [facility] [address] [place] [address] Dr. Brea Causey Neutrophils/100 WBC (Bld) 72.5 % Normal 43.0-75.[address] [facility] Comment on above: Performed By: #### U CLINT, CMP, LIPID, DBIL, PHOS, MG #### [facility] [address] [address] [address] Brea Causey Platelet mean volume (Bld) [Entitic vol] 9.6 fL Normal 9.5-13.5 [facility] Comment on above: Performed By: #### U CLINT, CMP, LIPID, DBIL, PHOS, MG #### [facility] [address] [address] [address] Brea Causey PLT 265 103/ul Normal 150-450 [facility] Comment on above: Performed By: #### U CLINT, CMP, LIPID, DBIL, PHOS, MG #### [facility] [address] [address] [address] Brea Causey RBC 4.07 106/ul Critically low 4.70-6.10 [facility] Comment on above: Performed By: #### U CLINT, CMP, LIPID, DBIL, PHOS, MG #### [facility] [address] [address] [address] Brea Causey WBC 6.0 103/ul Normal 4.0-11.0 [facility] Comment on above: Performed By: #### U CLINT, CMP, LIPID, DBIL, PHOS, MG #### [facility] [address] [place] [address] Dr. Brea Causey GLYCOHEMOGLOBIN A1Con 2021 ADA RECOMMENDATION SEE BELOW Normal [facility] Comment on above: Result Comment: ADA RECOMMENDED LIMIT 4.0 - 6.0 ADA THERAPEUTIC TARGET < 7.0 ACTION SUGGESTED > 7.0 Performed By: #### U CLINT, CMP, LIPID, DBIL, PHOS, MG #### [facility] [address] [address] [address] Brea Causey Glucose [Mass/Vol] 169 mg/dL Normal [facility] Comment on above: Performed By: #### U CLINT, CMP, LIPID, DBIL, PHOS, MG #### [facility] [address] [address] [address] Brea Causey HbA1c (Bld) [Mass fraction] 7.5 % Critically high 4.5-6.2 [facility] Comment on above: Performed By: #### U CLINT, CMP, LIPID, DBIL, PHOS, MG #### [facility] [address] [address] [address] Brea Causey LIPID PROFILEon 03-08-2022 CHOL-HDL RATIO NORM SEE BELOW Normal [facility] Comment on above: Result Comment: 3.3 - 4.4 LOW RISK 4.4 - 7.1 AVERAGE RISK 7.1 - 11.0 MODERATE RISK >11.0 HIGH RISK Performed By: #### U CLINT, CMP, LIPID, DBIL, PHOS, MG #### [facility] [address] [address] [address] Brea Causey Cholesterol [Mass/Vol] 77 mg/dL Normal <=200 [facility] Comment on above: Performed By: #### U CLINT, CMP, LIPID, DBIL, PHOS, MG #### [facility] [address] [place] [address] Dr. Brea Causey Cholesterol in HDL [Mass/Vol] 49 mg/dL Normal 40-60 [facility] Comment on above: Performed By: #### U CLINT, CMP, LIPID, DBIL, PHOS, MG #### [facility] [address] [address] [address] Brea Causey Cholesterol in LDL [Mass/Vol] 20.4 mg/dL Normal [facility] Comment on above: Performed By: #### U CLINT, CMP, LIPID, DBIL, PHOS, MG #### [facility] [address] [place] [address] Dr. Brea Causey Cholesterol.total/Chol esterol in HDL [Mass ratio] 1.6 {ratio} Normal [facility] Comment on above: Performed By: #### U CLINT, CMP, LIPID, DBIL, PHOS, MG #### [facility] [address] [place] [address] Dr. Brea Causey HDL NORMAL > or = 60 mg/dl - LO W CARDIOVASCULAR RISK <40 mg/dl - HIGH CARDIOVASCULAR RISK Normal [facility] Comment on above: Performed By: #### U CLINT, CMP, LIPID, DBIL, PHOS, MG #### [facility] [address] [address] [address] Brea Causey LDL CALC NORMAL SEE BELOW Normal [facility] Comment on above: Result Comment: <100 mg/dl OPTIMAL 100 - 129 mg/dl NEAR OR ABOVE OPTIMAL 130 - 159 mg/dl BORDERLINE HIGH 160 - 189 mg/dl HIGH >190 mg/dl VERY HIGH Performed By: #### U CLINT, CMP, LIPID, DBIL, PHOS, MG #### [facility] [address] [address] [address] Brea Causey Triglyceride [Mass/Vol] 38 mg/dL Normal <=150 [facility] Comment on above: Performed By: #### U CLINT, CMP, LIPID, DBIL, PHOS, MG #### [facility] [address] [address] [address] Brea Causey VLDL CALC 7.6 mg/dL Normal [facility] Comment on above: Performed By: #### U CLINT, CMP, LIPID, DBIL, PHOS, MG #### [facility] [address] [address] [address] Brea Causey MAGNESIUMon 03-08-2022 Magnesium [Mass/Vol] 1.5 mg/dL Critically low 1.8-2.4 [facility] Comment on above: Performed By: #### U CLINT, CMP, LIPID, DBIL, PHOS, MG #### [facility] [address] [address] [address] Brea Causey PHOSPHORUSon 03-08-2022 Phosphate [Mass/Vol] 3.6 mg/dL Normal 2.6-4.7 [facility] Comment on above: Performed By: #### U CLINT, CMP, LIPID, DBIL, PHOS, MG #### [facility] [address] [address] [address] Brea Causey PROF 14(COMP METB)on 022 Albumin [Mass/Vol] 4.0 g/dL Normal 3.4-5.0 [facility] Comment on above: Performed By: #### U CLINT, CMP, LIPID, DBIL, PHOS, MG #### [facility] [address] [place] [address] Dr. Brea Causey Albumin/Globulin [Mass ratio] 1.2 {ratio} Normal [facility] Comment on above: Performed By: #### U CLINT, CMP, LIPID, DBIL, PHOS, MG #### [facility] [address] [place] [address] Dr. Brea Causey ALP [Catalytic activity/Vol] 176 U/L Critically high 46-116 [facility] Comment on above: Performed By: #### U CLINT, CMP, LIPID, DBIL, PHOS, MG #### [facility] [address] [place] [address] Dr. Brea Causey ALT [Catalytic activity/Vol] 21 U/L Normal 16-63 [facility] Comment on above: Performed By: #### U CLINT, CMP, LIPID, DBIL, PHOS, MG #### [facility] [address] [place] [address] Dr. Brea Causey Anion gap [Moles/Vol] 12.0 mmol/L Normal [facility] Comment on above: Performed By: #### U CLINT, CMP, LIPID, DBIL, PHOS, MG #### [facility] [address] [place] [address] Dr. Brea Causey AST [Catalytic activity/Vol] 13 U/L Critically low 15-37 [facility] Comment on above: Performed By: #### U CLINT, CMP, LIPID, DBIL, PHOS, MG #### [facility] [address] [place] [address] Dr. Brea Causey Bilirubin [Mass/Vol] 0.3 mg/dL Normal 0.2-1.0 [facility] Comment on above: Performed By: #### U CLINT, CMP, LIPID, DBIL, PHOS, MG #### [facility] [address] [place] [address] Dr. Brea Causey Calcium [Mass/Vol] 7.9 mg/dL Critically low 8.5-10.1 [facility] Comment on above: Performed By: #### U CLINT, CMP, LIPID, DBIL, PHOS, MG #### [facility] [address] [address] [address] Brea Causey Chloride [Moles/Vol] 100 mmol/L Normal 98-107 [facility] Comment on above: Performed By: #### U CLINT, CMP, LIPID, DBIL, PHOS, MG #### [facility] [address] [address] [address] Brea Causey CO2 [Moles/Vol] 27.3 mmol/L Normal 21.0-32.0 [facility] Comment on above: Performed By: #### U CLINT, CMP, LIPID, DBIL, PHOS, MG #### [facility] [address] [place] [address] Dr. Brea Causey Creatinine [Mass/Vol] 1.00 mg/dL Normal 0.70-1.30 [facility] Comment on above: Performed By: #### U CLINT, CMP, LIPID, DBIL, PHOS, MG #### [facility] [address] [place] [address] Dr. Brea Causey EGFR-AF GUINEAN >60 Normal >=60 [facility] Comment on above: Performed By: #### U CLINT, CMP, LIPID, DBIL, PHOS, MG #### [facility] [address] [place] [address] Dr. Brea Causey EGFR-NON AF GUINEAN >60 Normal >=60 [facility] Comment on above: Performed By: #### U CLINT, CMP, LIPID, DBIL, PHOS, MG #### [facility] [address] [place] [address] Dr. Brea Causey Globulin (S) [Mass/Vol] 3.3 g/dL Normal [facility] Comment on above: Performed By: #### U CLINT, CMP, LIPID, DBIL, PHOS, MG #### [facility] [address] [place] [address] Dr. Brea Causey Glucose [Mass/Vol] 155 mg/dL Critically high 74-106 T [facility] Comment on above: Performed By: #### U CLINT, CMP, LIPID, DBIL, PHOS, MG #### [facility] [address] [place] [address] Dr. Brea Causey Potassium [Moles/Vol] 4.3 mmol/L Normal 3.5-5.1 [facility] Comment on above: Performed By: #### U CLINT, CMP, LIPID, DBIL, PHOS, MG #### [facility] [address] [place] [address] Dr. Brea Causey Protein [Mass/Vol] 7.3 g/dL Normal 6.4-8.2 [facility] Comment on above: Performed By: #### U CLINT, CMP, LIPID, DBIL, PHOS, MG #### [facility] [address] [place] [address] Dr. Brea Causey Sodium [Moles/Vol] 135 mmol/L Critically low 136-145 [facility] Comment on above: Performed By: #### U CLINT, CMP, LIPID, DBIL, PHOS, MG #### [facility] [address] [place] [address] Dr. Brea Causey Urea nitrogen [Mass/Vol] 13.0 mg/dL Normal 7.0-18.0 [facility] Comment on above: Performed By: #### U CLINT, CMP, LIPID, DBIL, PHOS, MG #### [facility] [address] [place] [address] Dr. Brea Causey Urea nitrogen/Creatinine [Mass ratio] 13.0 mg/mg Normal [facility] Comment on above: Performed By: #### U CLINT, CMP, LIPID, DBIL, PHOS, MG #### [facility] [address] [place] [address] Dr. Brea Causey URIC ACID SERUMon 03-08-2022 Urate [Mass/Vol] 7.3 mg/dL Critically high 3.5-7.2 [facility] Comment on above: Performed By: #### U CLINT, CMP, LIPID, DBIL, PHOS, MG #### [facility] [address] [place] [address] Dr. Brea Snyder 03-05-2022 L - -------- Specimen: [id number] Received: 03/05/22 Status: CHERI Irene Num: [id number] Spec Type: Surgical Subm Dr: Tj Wells MD Tissues: A Colon Biopsy (COLON BX) B Colon Biopsy (DIVERTICULAR COLITIS) Procedures: HE Stain/4, Gross/Micro L4/2 -------- Age/ Patient Sex Location Account Attending Physician -------- Roger Kerr/Naomi [id number] Tj Wells MD -------- SPEC NUM: [id number] RECD: 03/05/22 STATUS: CHERI BONILLA NUM: [id number] ESTEFANI: 03/05/22- SUBM DR: Tj Wells MD ENTERED: 03/05/[address] [facility] [address]: SPEC TYPE: Surgical DEPT: S [...] in one cassette labeled B1. -------- Specimen: [id number] Received: 03/05/22 Status: CHERI Bonilla Num: [id number] Spec Type: Surgical Subm Dr: Tj Wells MD Tissues: A Colon Biopsy (COLON BX) B Colon Biopsy (DIVERTICULAR COLITIS) Procedures: HE Stain/4, Gross/Micro L4/2 -------- Patient: Roger Kerr [id number] (Continued) -------- Specimen: [id number] Received: 03/05/22 (Continued) Signed (signature on file) Kalpana Shaw MD 03/07/22 1025 -------- Specimen: [id number] Received: 03/05/22 Status: CHERI Bonilla Num: [id number] Spec Type: Surgical Subm Dr: Tj Wells MD Tissues: A Colon Biopsy (COLON BX) B Colon Biopsy (DIVERTICULAR COLITIS) Procedures: HE Stain/4, Gross/Micro L4/2 -------- Patient: Roger Kerr [id number] (Continued) -------- Specimen: [id number] Received: 03/05/22 (Continued) Microscopic Description A. Two glass slides with H E stained material have been examined. The microscopic findings support the above pathologic diagnosis. B. Two glass slides with H E stained material have been examined. The microscopic findings support the above pathologic diagnosis. CPT Codes 86305?2 -------- -------- Specimen: [id number] Received: 03/05/22 Status: CHERI Bonilla Num: [id number] Spec Type: Surgical Subm Dr: Tj Wells MD Tissues: A Colon Biopsy (COLON BX) B Colon Biopsy (DIVERTICULAR COLITIS) Procedures: HE Stain/4, Gross/Micro L4/2 -------- Patient: Roger Kerr [id number] (Continued) -------- Signed (signature on file) Kalpana Shaw MD 03/07/[address] [facility] COVID-19 Antigenon 2 COVID-19 Antigen [...] developed and its performance characteristic determined by [employer] and validated at [facility]. This test has not been [...] for SARS Antigen by ROCHELLE PERFORMED BY: [place] [address] PATHOLOGIST [employer] FEI WOODRUFF M.D. [facility] Comment on above: Performed By: #### C OVID-19 MARQUISE, SOFIANEG #### [address] COVID-19 SOFIAOrdered By: Sheila Wells on 03-01-2022 SARS-CoV+SARS-CoV-2 (COVID-19) Ag IA.rapid Ql (Resp) Negative Negative [facility] Comment on above: This is a duplicate Marquise SARS Antigen (ROCHELLE) result to be used for statistical tracking purpose only. No Panel InformationOrdered By: Tj Wells on 03-01-2022 SARS Antigen (LFIA) [facility] Marquise Ag Negativeon 03-01-20 22 Marquise Ag Negative Negative Normal Negative [facility] Comment on above: Result Comment: This is a duplicate Marquise SARS Antigen (ROCHELLE) result to be used for statistical tracking purpose only. PERFORMED BY: [place] [address] PATHOLOGIST [employer] FEI WOODRUFF M.D. Performed By: #### C OVID-19 MARQUISE, SOFIANEG #### [address] FK506 (TACROLIMUS) WHOLE BLO ODon 02-05-2022 Tacrolimus (FK506), Blood 5.4 ng/mL Normal 2.0-20.0 [facility] Comment on above: Result Comment: Trou gh (immediately following transplant) 15.0 . Trough (steady state, 2 weeks or more after transplant): 3.0 - 8.0 . Performed by LC-MS/MS technology. Performed By: #### U CLINT, CMP, LIPID, DBIL, PHOS, MG #### [facility] [address] [place] [address] Dr. Brea Causey BILIRUBIN CONJUGATED (DIRECT )on 02-01-2022 BILI, CONJUGATED 0.1 mg/dL Normal 0.0-0.2 [facility] Comment on above: Performed By: #### C BC #### [facility] [address] [place] [address] Dr. Brea Causey CBC AUTO DIFFon 02-01-2022 BASO # 0.0 103/ul Normal 0.0-0.1 [facility] Comment on above: Performed By: #### B KVIRUS #### [facility] [address] [place] [address] Dr. Brea Causey Basophils/100 WBC (Bld) 0.6 % Normal 0.2-2.0 [facility] Comment on above: Performed By: #### B KVIRUS #### [facility] [address] [place] [address] Dr. Brea Causey EO # 0.2 103/ul Normal 0.0-0.[address] [facility] Comment on above: Performed By: #### B KVIRUS #### [facility] [address] [place] [address] Dr. Brea Causey Eosinophils/100 WBC (Bld) 3.5 % Normal 0.9-7.0 [facility] Comment on above: Performed By: #### B KVIRUS #### [facility] [address] [place] [address] Dr. Brea Causey Erythrocyte distribution width (RBC) [Ratio] 13.0 % Normal 11.0-15.0 [facility] Comment on above: Performed By: #### B KVIRUS #### [facility] [address] [place] [address] Dr. Brea Causey Hematocrit (Bld) [Volume fraction] 36.9 % Critically low 42.0-54.0 [facility] Comment on above: Performed By: #### B KVIRUS #### [facility] [address] [place] [address] Dr. Brea Causey Hemoglobin (Bld) [Mass/Vol] 12.0 g/dL Critically low 14.0-18.[address] [facility] Comment on above: Performed By: #### B KVIRUS #### [facility] [address] [place] [address] Dr. Brea Causey IG # 0.07 10e3/ul Critically high 0.00-0.03 [facility] Comment on above: Performed By: #### B KVIRUS #### [facility] [address] [place] [address] Dr. Brea Causey IG % 1.0 % Critically high 0.0-0.5 [facility] Comment on above: Performed By: #### B KVIRUS #### [facility] [address] [address] [address] Brea Causey LYMPH # 1.0 103/ul Critically low 1.2-3.8 [facility] Comment on above: Performed By: #### B KVIRUS #### [facility] [address] [place] [address] Dr. Brea Causey Lymphocytes/100 WBC (Bld) 14.2 % Critically low 20.5-60.[address] [facility] Comment on above: Performed By: #### B KVIRUS #### [facility] [address] [place] [address] Dr. Brea Causey MANUAL DIFF REQ NO Normal [facility] Comment on above: Performed By: #### B KVIRUS #### [facility] [address] [place] [address] Dr. Brea Causey MCH (RBC) [Entitic mass] 29.1 pg Normal 25.9-34.[address] [facility] Comment on above: Performed By: #### B KVIRUS #### [facility] [address] [place] [address] Dr. Brea Causey MCHC (RBC) [Mass/Vol] 32.5 g/dL Normal 29.9-35.[address] [facility] Comment on above: Performed By: #### B KVIRUS #### [facility] [address] [place] [address] Dr. Brea Causey MCV (RBC) [Entitic vol] 89.6 fL Normal 80.0-94.[address] [facility] Comment on above: Performed By: #### B KVIRUS #### [facility] [address] [place] [address] Dr. Brea Causey MONO # 0.7 103/ul Normal 0.3-0.[address] [facility] Comment on above: Performed By: #### B KVIRUS #### [facility] [address] [place] [address] Dr. Brea Causey Monocytes/100 WBC (Bld) 9.9 % Normal 1.7-12.[address] [facility] Comment on above: Performed By: #### B KVIRUS #### [facility] [address] [address] [address] Brea Causey NEUT # 4.9 103/ul Normal 1.4-6.5 [facility] Comment on above: Performed By: #### B KVIRUS #### [facility] [address] [address] [address] Brea Causey Neutrophils/100 WBC (Bld) 70.8 % Normal 43.0-75.0 [facility] Comment on above: Performed By: #### B KVIRUS #### [facility] [address] [place] [address] Dr. Brea Causey Platelet mean volume (Bld) [Entitic vol] 9.6 fL Normal 9.5-13.5 [facility] Comment on above: Performed By: #### B KVIRUS #### [facility] [address] [place] [address] Dr. Brea Causey PLT 247 103/ul Normal 150-450 [facility] Comment on above: Performed By: #### B KVIRUS #### [facility] [address] [place] [address] Dr. Brea Causey RBC 4.12 106/ul Critically low 4.70-6.10 [facility] Comment on above: Performed By: #### B KVIRUS #### [facility] [address] [place] [address] Dr. Brea Causey WBC 6.9 103/ul Normal 4.0-11.0 [facility] Comment on above: Performed By: #### B KVIRUS #### [facility] [address] [place] [address] Dr. Brea Causey LIPID PROFILEon 02-01-2022 CHOL-HDL RATIO NORM SEE BELOW Normal [facility] Comment on above: Result Comment: 3.3 - 4.4 LOW RISK 4.4 - 7.1 AVERAGE RISK 7.1 - 11.0 MODERATE RISK >11.0 HIGH RISK Performed By: #### C BC #### [facility] [address] [place] [address] Dr. Brea Causey Cholesterol [Mass/Vol] 77 mg/dL Normal <=200 [facility] Comment on above: Performed By: #### C BC #### [facility] [address] [place], [place] [address] Dr. Brea Causey Cholesterol in HDL [Mass/Vol] 40 mg/dL Normal 40-60 [facility] Comment on above: Performed By: #### C BC #### [facility] [address] [place], [place] [address] Dr. Brea Causey Cholesterol in LDL [Mass/Vol] 21.0 mg/dL Normal [facility] Comment on above: Performed By: #### C BC #### [facility] [address] [address] [address] Brea Causey Cholesterol.total/Chol esterol in HDL [Mass ratio] 1.9 {ratio} Normal [facility] Comment on above: Performed By: #### C BC #### [facility] [address] [address] [address] Brea Causey HDL NORMAL > or = 60 mg/dl - LO W CARDIOVASCULAR RISK <40 mg/dl - HIGH CARDIOVASCULAR RISK Normal [facility] Comment on above: Performed By: #### C BC #### [facility] [address] [address] [address] Brea Causey LDL CALC NORMAL SEE BELOW Normal [facility] Comment on above: Result Comment: <100 mg/dl OPTIMAL 100 - 129 mg/dl NEAR OR ABOVE OPTIMAL 130 - 159 mg/dl BORDERLINE HIGH 160 - 189 mg/dl HIGH >190 mg/dl VERY HIGH Performed By: #### C BC #### [facility] [address] [address] [address] Brea Causey Triglyceride [Mass/Vol] 80 mg/dL Normal <=[address] [facility] Comment on above: Performed By: #### C BC #### [facility] [address] [address] [address] Brea Causey VLDL CALC 16.0 mg/dL Normal [facility] Comment on above: Performed By: #### C BC #### [facility] [address] [address] [address] Brea Causey MAGNESIUMon 02-01-2022 Magnesium [Mass/Vol] 1.5 mg/dL Critically low 1.8-2.4 [facility] Comment on above: Performed By: #### C BC #### [facility] [address] [place] [address] Dr. Brea Causey PHOSPHORUSon 02-01-2022 Phosphate [Mass/Vol] 4.1 mg/dL Normal 2.6-4.7 [facility] Comment on above: Performed By: #### C BC #### [facility] [address] [place] [address] Dr. Brea Causey PROF 14(COMP METB)on 022 Albumin [Mass/Vol] 4.0 g/dL Normal 3.4-5.0 [facility] Comment on above: Performed By: #### C BC #### [facility] [address] [place] [address] Dr. Brea Causey Albumin/Globulin [Mass ratio] 1.3 {ratio} Normal [facility] Comment on above: Performed By: #### C BC #### [facility] [address] [place] [address] Dr. Brea Causey ALP [Catalytic activity/Vol] 162 U/L Critically high 46-116 [facility] Comment on above: Performed By: #### C BC #### [facility] [address] [place] [address] Dr. Brea Causey ALT [Catalytic activity/Vol] 25 U/L Normal 16-63 [facility] Comment on above: Performed By: #### C BC #### [facility] [address] [place] [address] Dr. Brea Causey Anion gap [Moles/Vol] 11.1 mmol/L Normal [facility] Comment on above: Performed By: #### C BC #### [facility] [address] [place] [address] Dr. Brea Causey AST [Catalytic activity/Vol] 16 U/L Normal 15-37 [facility] Comment on above: Performed By: #### C BC #### [facility] [address] [place] [address] Dr. Brea Causey Bilirubin [Mass/Vol] 0.4 mg/dL Normal 0.2-1.0 [facility] Comment on above: Performed By: #### C BC #### [facility] [address] [place] [address] Dr. Brea Causey Calcium [Mass/Vol] 8.2 mg/dL Critically low 8.5-10.1 [facility] Comment on above: Performed By: #### C BC #### [facility] [address] [place] [address] Dr. Brea Causey Chloride [Moles/Vol] 99 mmol/L Normal 98-107 [facility] Comment on above: Performed By: #### C BC #### [facility] [address] [place] [address] Dr. Brea Causey CO2 [Moles/Vol] 28.1 mmol/L Normal 21.0-32.0 [facility] Comment on above: Performed By: #### C BC #### [facility] [address] [place] [address] Dr. Brea Causey Creatinine [Mass/Vol] 1.13 mg/dL Normal 0.70-1.30 [facility] Comment on above: Performed By: #### C BC #### [facility] [address] [place] [address] Dr. Brea Causey EGFR-AF GUINEAN >60 Normal >=60 [facility] Comment on above: Performed By: #### C BC #### [facility] [address] [place] [address] Dr. Brea Causey EGFR-NON AF GUINEAN >60 Normal >=60 [facility] Comment on above: Performed By: #### C BC #### [facility] [address] [place] [address] Dr. Brea Causey Globulin (S) [Mass/Vol] 3.1 g/dL Normal [facility] Comment on above: Performed By: #### C BC #### [facility] [address] [place] [address] Dr. Brea Causey Glucose [Mass/Vol] 177 mg/dL Critically high 74-106 [facility] Comment on above: Performed By: #### C BC #### [facility] [address] [address] [address] Brea Causey Potassium [Moles/Vol] 5.2 mmol/L Critically high 3.5-5.1 [facility] Comment on above: Performed By: #### C BC #### [facility] [address] [address] [address] Brea Causey Protein [Mass/Vol] 7.1 g/dL Normal 6.4-8.2 [facility] Comment on above: Performed By: #### C BC #### [facility] [address] [address] [address] Brea Causey Sodium [Moles/Vol] 133 mmol/L Critically low 136-145 [facility] Comment on above: Performed By: #### C BC #### [facility] [address] [address] [address] Brea Causey Urea nitrogen [Mass/Vol] 12.0 mg/dL Normal 7.0-18.0 [facility] Comment on above: Performed By: #### C BC #### [facility] [address] [address] [address] Brea Causey Urea nitrogen/Creatinine [Mass ratio] 10.6 mg/mg Normal [facility] Comment on above: Performed By: #### C BC #### [facility] [address] [address] [address] Brea Causey URIC ACID SERUMon 02-01-2022 Urate [Mass/Vol] 7.7 mg/dL Critically high 3.5-7.2 [facility] Comment on above: Performed By: #### C BC #### [facility] [address] [address] [address] Brea Causey FK506 (TACROLIMUS) WHOLE BLO ODon 01-06-2022 Tacrolimus (FK506), Blood 11.4 ng/mL Normal 2.0-20.0 [facility] Comment on above: Result Comment: Trou gh (immediately following transplant) 15.0 . Trough (steady state, 2 weeks or more after transplant): 3.0 - 8.0 . Performed by LC-MS/MS technology. Performed By: #### B KVIRUS #### [facility] [address] [place] [address] Dr. Brea Causey BILIRUBIN CONJUGATED (DIRECT )on 01-04-2022 BILI, CONJUGATED 0.1 mg/dL Normal 0.0-0.2 [facility] Comment on above: Performed By: #### U CLINT, CMP, LIPID, DBIL, PHOS, MG #### [facility] [address] [place] [address] Dr. Brea Causey BOX TEST SENT OUTon 01-05-20 22 SENT TO REF LAB 01/04/2022 Normal [facility] Comment on above: Performed By: #### U CLINT, CMP, LIPID, DBIL, PHOS, MG #### [facility] [address] [place] [address] Dr. Brea Causey CBC AUTO DIFFon 01-04-2022 BASO # 0.0 103/ul Normal 0.0-0.1 [facility] Comment on above: Performed By: #### U CLINT, CMP, LIPID, DBIL, PHOS, MG #### [facility] [address] [place] [address] Dr. Brea Causey Basophils/100 WBC (Bld) 0.5 % Normal 0.2-2.0 [facility] Comment on above: Performed By: #### U CLINT, CMP, LIPID, DBIL, PHOS, MG #### [facility] [address] [place] [address] Dr. Brea Causey EO # 0.3 103/ul Normal 0.0-0.7 [facility] Comment on above: Performed By: #### U CLINT, CMP, LIPID, DBIL, PHOS, MG #### [facility] [address] [place] [address] Dr. Brea Causey Eosinophils/100 WBC (Bld) 3.9 % Normal 0.9-7.0 [facility] Comment on above: Performed By: #### U CLINT, CMP, LIPID, DBIL, PHOS, MG #### [facility] [address] [place] [address] Dr. Brea Causey Erythrocyte distribution width (RBC) [Ratio] 13.1 % Normal 11.0-15.0 [facility] Comment on above: Performed By: #### U CLINT, CMP, LIPID, DBIL, PHOS, MG #### [facility] [address] [place] [address] Dr. Brea Causey Hematocrit (Bld) [Volume fraction] 37.4 % Critically low 42.0-54.0 [facility] Comment on above: Performed By: #### U CLINT, CMP, LIPID, DBIL, PHOS, MG #### [facility] [address] [place] [address] Dr. Brea Causey Hemoglobin (Bld) [Mass/Vol] 12.0 g/dL Critically low 14.0-18.0 [facility] Comment on above: Performed By: #### U CLINT, CMP, LIPID, DBIL, PHOS, MG #### [facility] [address] [place] [address] Dr. Brea Causey IG # 0.07 10e3/ul Critically high 0.00-0.03 [facility] Comment on above: Performed By: #### U CLINT, CMP, LIPID, DBIL, PHOS, MG #### [facility] [address] [place] [address] Dr. Brea Causey IG % 1.1 % Critically high 0.0-0.5 [facility] Comment on above: Performed By: #### U CLINT, CMP, LIPID, DBIL, PHOS, MG #### [facility] [address] [place] [address] Dr. Brea Causey LYMPH # 0.8 103/ul Critically low 1.2-3.8 [facility] Comment on above: Performed By: #### U CLINT, CMP, LIPID, DBIL, PHOS, MG #### [facility] [address] [place] [address] Dr. Brea Causey Lymphocytes/100 WBC (Bld) 12.2 % Critically low 20.5-60.0 [facility] Comment on above: Performed By: #### U CLINT, CMP, LIPID, DBIL, PHOS, MG #### [facility] [address] [address] [address] Brea Causey MANUAL DIFF REQ NO Normal [facility] Comment on above: Performed By: #### U CLINT, CMP, LIPID, DBIL, PHOS, MG #### [facility] [address] [place] [address] Dr. Brea Causey MCH (RBC) [Entitic mass] 29.1 pg Normal 25.9-34.[address] [facility] Comment on above: Performed By: #### U CLINT, CMP, LIPID, DBIL, PHOS, MG #### [facility] [address] [address] [address] Brea Causey MCHC (RBC) [Mass/Vol] 32.1 g/dL Normal 29.9-35.2 [facility] Comment on above: Performed By: #### U CLINT, CMP, LIPID, DBIL, PHOS, MG #### [facility] [address] [place] [address] Dr. Brea Causey MCV (RBC) [Entitic vol] 90.6 fL Normal 80.0-94.0 [facility] Comment on above: Performed By: #### U CLINT, CMP, LIPID, DBIL, PHOS, MG #### [facility] [address] [place] [address] Dr. Brea Causye MONO # 0.5 103/ul Normal 0.3-0.[address] [facility] Comment on above: Performed By: #### U CLINT, CMP, LIPID, DBIL, PHOS, MG #### [facility] [address] [place] [address] Dr. Brea Causey Monocytes/100 WBC (Bld) 8.0 % Normal 1.7-12.[address] [facility] Comment on above: Performed By: #### U CLINT, CMP, LIPID, DBIL, PHOS, MG #### [facility] [address] [place] [address] Dr. Brea Causey NEUT # 5.0 103/ul Normal 1.4-6.[address] [facility] Comment on above: Performed By: #### U CLINT, CMP, LIPID, DBIL, PHOS, MG #### [facility] [address] [address] [address] Brea Causey Neutrophils/100 WBC (Bld) 74.3 % Normal 43.0-75.0 [facility] Comment on above: Performed By: #### U CLINT, CMP, LIPID, DBIL, PHOS, MG #### [facility] [address] [address] [address] Brea Causey Platelet mean volume (Bld) [Entitic vol] 9.5 fL Normal 9.5-13.5 [facility] Comment on above: Performed By: #### U CLINT, CMP, LIPID, DBIL, PHOS, MG #### [facility] [address] [place] [address] Dr. Brea Causey PLT 243 103/ul Normal 150-450 [facility] Comment on above: Performed By: #### U CLINT, CMP, LIPID, DBIL, PHOS, MG #### [facility] [address] [place] [address] Dr. Brea Causey RBC 4.13 106/ul Critically low 4.70-6.10 [facility] Comment on above: Performed By: #### U CLINT, CMP, LIPID, DBIL, PHOS, MG #### [facility] [address] [place] [address] Dr. Brea Causey WBC 6.7 103/ul Normal 4.0-11.0 [facility] Comment on above: Performed By: #### U CLINT, CMP, LIPID, DBIL, PHOS, MG #### [facility] [address] [place] [address] Dr. Brea Causey LIPID PROFILEon 01-04-2022 CHOL-HDL RATIO NORM SEE BELOW Normal [facility] Comment on above: Result Comment: 3.3 - 4.4 LOW RISK 4.4 - 7.1 AVERAGE RISK 7.1 - 11.0 MODERATE RISK >11.0 HIGH RISK Performed By: #### U CLINT, CMP, LIPID, DBIL, PHOS, MG #### [facility] [address] [address] [address] Brea Causey Cholesterol [Mass/Vol] 81 mg/dL Normal <=200 Th [facility] Comment on above: Performed By: #### U CLINT, CMP, LIPID, DBIL, PHOS, MG #### [facility] [address] [address] [address] Brea Causey Cholesterol in HDL [Mass/Vol] 43 mg/dL Normal 40-60 [facility] Comment on above: Performed By: #### U CLINT, CMP, LIPID, DBIL, PHOS, MG #### [facility] [address] [address] [address] Brea Causey Cholesterol in LDL [Mass/Vol] 26.0 mg/dL Normal [facility] Comment on above: Performed By: #### U CLINT, CMP, LIPID, DBIL, PHOS, MG #### [facility] [address] [place] [address] Dr. Brea Causey Cholesterol.total/Chol esterol in HDL [Mass ratio] 1.9 {ratio} Normal [facility] Comment on above: Performed By: #### U CLINT, CMP, LIPID, DBIL, PHOS, MG #### [facility] [address] [address] [address] Brea Causey HDL NORMAL > or = 60 mg/dl - LO W CARDIOVASCULAR RISK <40 mg/dl - HIGH CARDIOVASCULAR RISK Normal [facility] Comment on above: Performed By: #### U CLINT, CMP, LIPID, DBIL, PHOS, MG #### [facility] [address] [address] [address] Brea Causey LDL CALC NORMAL SEE BELOW Normal [facility] Comment on above: Result Comment: <100 mg/dl OPTIMAL 100 - 129 mg/dl NEAR OR ABOVE OPTIMAL 130 - 159 mg/dl BORDERLINE HIGH 160 - 189 mg/dl HIGH >190 mg/dl VERY HIGH Performed By: #### U CLINT, CMP, LIPID, DBIL, PHOS, MG #### [facility] [address] [address] [address] Brea Causey Triglyceride [Mass/Vol] 60 mg/dL Normal <=150 [facility] Comment on above: Performed By: #### U CLINT, CMP, LIPID, DBIL, PHOS, MG #### [facility] [address] [address] [address] Brea Causey VLDL CALC 12.0 mg/dL Normal [facility] Comment on above: Performed By: #### U CLINT, CMP, LIPID, DBIL, PHOS, MG #### [facility] [address] [place] [address] Dr. Brea Causey MAGNESIUMon 01-04-2022 Magnesium [Mass/Vol] 1.4 mg/dL Critically low 1.8-2.4 [facility] Comment on above: Performed By: #### U CLINT, CMP, LIPID, DBIL, PHOS, MG #### [facility] [address] [place] [address] Dr. Brea Causey PHOSPHORUSon 01-04-2022 Phosphate [Mass/Vol] 4.4 mg/dL Normal 2.6-4.7 [facility] Comment on above: Performed By: #### U CLINT, CMP, LIPID, DBIL, PHOS, MG #### [facility] [address] [place] [address] Dr. Brea Causey PROF 14(COMP METB)on 022 Albumin [Mass/Vol] 3.9 g/dL Normal 3.4-5.0 [facility] Comment on above: Performed By: #### U CLINT, CMP, LIPID, DBIL, PHOS, MG #### [facility] [address] [place] [address] Dr. Brea Causey Albumin/Globulin [Mass ratio] 1.2 {ratio} Normal [facility] Comment on above: Performed By: #### U CLINT, CMP, LIPID, DBIL, PHOS, MG #### [facility] [address] [place] [address] Dr. Brea Causey ALP [Catalytic activity/Vol] 155 U/L Critically high 46-116 [facility] Comment on above: Performed By: #### U CLINT, CMP, LIPID, DBIL, PHOS, MG #### [facility] [address] [place] [address] Dr. Brea Causey ALT [Catalytic activity/Vol] 27 U/L Normal 16-63 [facility] Comment on above: Performed By: #### U CLINT, CMP, LIPID, DBIL, PHOS, MG #### [facility] [address] [place] [address] Dr. Brea Causey Anion gap [Moles/Vol] 14.6 mmol/L Normal [facility] Comment on above: Performed By: #### U CLINT, CMP, LIPID, DBIL, PHOS, MG #### [facility] [address] [address] [address] Brea Causey AST [Catalytic activity/Vol] 17 U/L Normal 15-37 [facility] Comment on above: Performed By: #### U CLINT, CMP, LIPID, DBIL, PHOS, MG #### [facility] [address] [place] [address] Dr. Brea Causey Bilirubin [Mass/Vol] 0.3 mg/dL Normal 0.2-1.0 [facility] Comment on above: Performed By: #### U CLINT, CMP, LIPID, DBIL, PHOS, MG #### [facility] [address] [place] [address] Dr. Brea Causey Calcium [Mass/Vol] 8.1 mg/dL Critically low 8.5-10.1 [facility] [facility] Comment on above: Performed By: #### U CLINT, CMP, LIPID, DBIL, PHOS, MG #### [facility] [address] [place] [address] Dr. Brea Causey Chloride [Moles/Vol] 99 mmol/L Normal 98-107 [facility] Comment on above: Performed By: #### U CLINT, CMP, LIPID, DBIL, PHOS, MG #### [facility] [address] [place] [address] Dr. Brea Causey CO2 [Moles/Vol] 25.0 mmol/L Normal 21.0-32.0 [facility] Comment on above: Performed By: #### U CLINT, CMP, LIPID, DBIL, PHOS, MG #### [facility] [address] [address] [address] Brea Causey Creatinine [Mass/Vol] 1.05 mg/dL Normal 0.70-1.30 [facility] Comment on above: Performed By: #### U CLINT, CMP, LIPID, DBIL, PHOS, MG #### [facility] [address] [place] [address] Dr. Brea Causey EGFR-AF GUINEAN >60 Normal >=60 [facility] Comment on above: Performed By: #### U CLINT, CMP, LIPID, DBIL, PHOS, MG #### [facility] [address] [place] [address] Dr. Brea Causey EGFR-NON AF GUINEAN >60 Normal >=60 [facility] Comment on above: Performed By: #### U CLINT, CMP, LIPID, DBIL, PHOS, MG #### [facility] [address] [place] [address] Dr. Brea Causey Globulin (S) [Mass/Vol] 3.2 g/dL Normal [facility] Comment on above: Performed By: #### U CLINT, CMP, LIPID, DBIL, PHOS, MG #### [facility] [address] [place] [address] Dr. Brea Causey Glucose [Mass/Vol] 177 mg/dL Critically high 74-106 [facility] Comment on above: Performed By: #### U CLINT, CMP, LIPID, DBIL, PHOS, MG #### [facility] [address] [place] [address] Dr. Brea Causey Potassium [Moles/Vol] 4.6 mmol/L Normal 3.5-5.1 [facility] Comment on above: Performed By: #### U CLINT, CMP, LIPID, DBIL, PHOS, MG #### [facility] [address] [place] [address] Dr. Brea Causey Protein [Mass/Vol] 7.1 g/dL Normal 6.4-8.2 [facility] Comment on above: Performed By: #### U CLINT, CMP, LIPID, DBIL, PHOS, MG #### [facility] [address] [address] [address] Brea Causey Sodium [Moles/Vol] 134 mmol/L Critically low 136-[address] [facility] Comment on above: Performed By: #### U CLINT, CMP, LIPID, DBIL, PHOS, MG #### [facility] [address] [place] [address] Dr. Brea Causey Urea nitrogen [Mass/Vol] 14.0 mg/dL Normal 7.0-18.0 [facility] Comment on above: Performed By: #### U CLINT, CMP, LIPID, DBIL, PHOS, MG #### [facility] [address] [address] [address] Brea Causey Urea nitrogen/Creatinine [Mass ratio] 13.3 mg/mg Normal [facility] Comment on above: Performed By: #### U CLINT, CMP, LIPID, DBIL, PHOS, MG #### [facility] [address] [place] [address] Dr. Brea Causey URIC ACID SERUMon 01-04-2022 Urate [Mass/Vol] 7.6 mg/dL Critically high 3.5-7.2 [facility] Comment on above: Performed By: #### U CLINT, CMP, LIPID, DBIL, PHOS, MG #### [facility] [address] [place] [address] Dr. Brea Causey BK VIRUS PCR QUANTon 022 BKV DNA QUANT PCR PLASMA Negative Normal Negative [facility] Comment on above: Result Comment: No B K DNA detected. . The linear range of the assay is 22 - 100,000,000 IU/mL. Performed By: #### B KVIRUS #### [facility] [address] [place] [address] Dr. Brea Causey Log10 BKV DNA Plasma Normal [facility] Comment on above: Performed By: #### B KVIRUS #### [facility] [address] [place] [address] Dr. Brea Causey FK506 (TACROLIMUS) WHOLE BLO ODon 12-03-2021 Tacrolimus (FK506), Blood 5.6 ng/mL Normal 2.0-20.0 [facility] Comment on above: Result Comment: Trou gh (immediately following transplant) 15.0 . Trough (steady state, 2 weeks or more after transplant): 3.0 - 8.0 . Performed by LC-MS/MS technology. Performed By: #### U CLINT, CMP, LIPID, DBIL, PHOS, MG #### [facility] [address] [place] [address] Dr. Brea Causey TESTOSTERONE, FREE,DIRECT, T OTALon 12-03-2021 Free Testosterone(Direct) 7.5 pg/mL Normal 6.6-18.1 [facility] Comment on above: Result Comment: Perf ormed at: BN Performed By: #### U CLINT, CMP, LIPID, DBIL, PHOS, MG #### [facility] [address] [place] [address] Dr. Brea Causey Testosterone [Mass/Vol] 467 ng/dL Normal 264-[address] [facility] Comment on above: Result Comment: Adul t male reference interval is based on a population of healthy nonobese males (BMI <30) between 19 and 39 years old. Steven et.al. JCEM 2017,102;3225-6211. PMID: [id number]. Performed at: CB Performed By: #### U CLINT, CMP, LIPID, DBIL, PHOS, MG #### [facility] [address] [place] [address] Dr. Brea Causey BILIRUBIN CONJUGATED (DIRECT )on 11-30-2021 BILI, CONJUGATED 0.2 mg/dL Normal 0.0-0.2 [facility] Comment on above: Performed By: #### B KVIRUS #### [facility] [address] [address] [address] Brea Causey CBC AUTO DIFFon 11-30-2021 BASO # 0.0 103/ul Normal 0.0-0.1 [facility] Comment on above: Performed By: #### U CLINT, CMP, LIPID, DBIL, PHOS, MG #### [facility] [address] [place] [address] Dr. Brea Causey Basophils/100 WBC (Bld) 0.6 % Normal 0.2-2.0 [facility] Comment on above: Performed By: #### U CLINT, CMP, LIPID, DBIL, PHOS, MG #### [facility] [address] [place] [address] Dr. Brea Causey EO # 0.2 103/ul Normal 0.0-0.7 [facility] Comment on above: Performed By: #### U CLINT, CMP, LIPID, DBIL, PHOS, MG #### [facility] [address] [place] [address] Dr. Brea Causey Eosinophils/100 WBC (Bld) 2.7 % Normal 0.9-7.0 [facility] Comment on above: Performed By: #### U CLINT, CMP, LIPID, DBIL, PHOS, MG #### [facility] [address] [place] [address] Dr. Brea Causey Erythrocyte distribution width (RBC) [Ratio] 13.0 % Normal 11.0-15.0 [facility] Comment on above: Performed By: #### U CLINT, CMP, LIPID, DBIL, PHOS, MG #### [facility] [address] [place] [address] Dr. Brea Causey Hematocrit (Bld) [Volume fraction] 37.6 % Critically low 42.0-54.0 [facility] Comment on above: Performed By: #### U CLINT, CMP, LIPID, DBIL, PHOS, MG #### [facility] [address] [place] [address] Dr. Brea Causey Hemoglobin (Bld) [Mass/Vol] 12.4 g/dL Critically low 14.0-18.0 [facility] Comment on above: Performed By: #### U CLINT, CMP, LIPID, DBIL, PHOS, MG #### [facility] [address] [place] [address] Dr. Brea Causey IG # 0.06 10e3/ul Critically high 0.00-0.03 [facility] Comment on above: Performed By: #### U CLINT, CMP, LIPID, DBIL, PHOS, MG #### [facility] [address] [address] [address] Brea Causey IG % 0.9 % Critically high 0.0-0.5 [facility] Comment on above: Performed By: #### U CLINT, CMP, LIPID, DBIL, PHOS, MG #### [facility] [address] [place] [address] Dr. Brea Causey LYMPH # 1.0 103/ul Critically low 1.2-3.8 [facility] Comment on above: Performed By: #### U CLINT, CMP, LIPID, DBIL, PHOS, MG #### [facility] [address] [place] [address] Dr. Brea Causey Lymphocytes/100 WBC (Bld) 14.6 % Critically low 20.5-60.0 [facility] Comment on above: Performed By: #### U CLINT, CMP, LIPID, DBIL, PHOS, MG #### [facility] [address] [place] [address] Dr. Brea Causey MANUAL DIFF REQ NO Normal [facility] Comment on above: Performed By: #### U CLINT, CMP, LIPID, DBIL, PHOS, MG #### [facility] [address] [place] [address] Dr. Brea Causey MCH (RBC) [Entitic mass] 29.4 pg Normal 25.9-34.0 [facility] Comment on above: Performed By: #### U CLINT, CMP, LIPID, DBIL, PHOS, MG #### [facility] [address] [place] [address] Dr. Brea Causey MCHC (RBC) [Mass/Vol] 33.0 g/dL Normal 29.9-35.[address] [facility] Comment on above: Performed By: #### U CLINT, CMP, LIPID, DBIL, PHOS, MG #### [facility] [address] [place] [address] Dr. Brea Causey MCV (RBC) [Entitic vol] 89.1 fL Normal 80.0-94.0 [facility] Comment on above: Performed By: #### U CLINT, CMP, LIPID, DBIL, PHOS, MG #### [facility] [address] [address] [address] Brea Causey MONO # 0.7 103/ul Normal 0.3-0.[address] [facility] Comment on above: Performed By: #### U CLINT, CMP, LIPID, DBIL, PHOS, MG #### [facility] [address] [place] [address] Dr. Brea Causey Monocytes/100 WBC (Bld) 10.0 % Normal 1.7-12.[address] [facility] Comment on above: Performed By: #### U CLINT, CMP, LIPID, DBIL, PHOS, MG #### [facility] [address] [address] [address] Brea Causey NEUT # 4.8 103/ul Normal 1.4-6.5 [facility] Comment on above: Performed By: #### U CLINT, CMP, LIPID, DBIL, PHOS, MG #### [facility] [address] [place] [address] Dr. Brea Causey Neutrophils/100 WBC (Bld) 71.2 % Normal 43.0-75.[address] [facility] Comment on above: Performed By: #### U CLINT, CMP, LIPID, DBIL, PHOS, MG #### [facility] [address] [place] [address] Dr. Brea Causey Platelet mean volume (Bld) [Entitic vol] 9.0 fL Critically low 9.5-13.[address] [facility] Comment on above: Performed By: #### U CLINT, CMP, LIPID, DBIL, PHOS, MG #### [facility] [address] [place] [address] Dr. Brea Causey PLT 280 103/ul Normal 150-[address] [facility] Comment on above: Performed By: #### U CLINT, CMP, LIPID, DBIL, PHOS, MG #### [facility] [address] [place] [address] Dr. Brea Causey RBC 4.22 106/ul Critically low 4.70-6.10 [facility] Comment on above: Performed By: #### U CLINT, CMP, LIPID, DBIL, PHOS, MG #### [facility] [address] [address] [address] Brea Causey WBC 6.7 103/ul Normal 4.0-11.0 [facility] Comment on above: Performed By: #### U CLINT, CMP, LIPID, DBIL, PHOS, MG #### [facility] [address] [address] [address] Brea Causey GLYCOHEMOGLOBIN A1Con 2021 ADA RECOMMENDATION SEE BELOW Normal [facility] Comment on above: Result Comment: ADA RECOMMENDED LIMIT 4.0 - 6.0 ADA THERAPEUTIC TARGET < 7.0 ACTION SUGGESTED > 7.0 Performed By: #### B KVIRUS #### [facility] [address] [place] [address] Dr. Brea Causey Glucose [Mass/Vol] 171 mg/dL Normal [facility] Comment on above: Performed By: #### B KVIRUS #### [facility] [address] [place] [address] Dr. Brea Causey HbA1c (Bld) [Mass fraction] 7.6 % Critically high 4.5-6.2 [facility] Comment on above: Performed By: #### B KVIRUS #### [facility] [address] [place] [address] Dr. Brea Causey LIPID PROFILEon 11-30-2021 CHOL-HDL RATIO NORM SEE BELOW Normal [facility] Comment on above: Result Comment: 3.3 - 4.4 LOW RISK 4.4 - 7.1 AVERAGE RISK 7.1 - 11.0 MODERATE RISK >11.0 HIGH RISK Performed By: #### C BC #### [facility] [address] [place] [address] Dr. Brea Causey Cholesterol [Mass/Vol] 75 mg/dL Normal <=200 [facility] Comment on above: Performed By: #### C BC #### [facility] [address] [place] [address] Dr. Brea Causey Cholesterol in HDL [Mass/Vol] 41 mg/dL Normal 40-60 [facility] Comment on above: Performed By: #### C BC #### [facility] [address] [address] [address] Brea Causey Cholesterol in LDL [Mass/Vol] 18.6 mg/dL Normal [facility] Comment on above: Performed By: #### C BC #### [facility] [address] [address] [address] Brea Causey Cholesterol.total/Chol esterol in HDL [Mass ratio] 1.8 {ratio} Normal [facility] Comment on above: Performed By: #### C BC #### [facility] [address] [address] [address] Brea Causey HDL NORMAL > or = 60 mg/dl - LO W CARDIOVASCULAR RISK <40 mg/dl - HIGH CARDIOVASCULAR RISK Normal [facility] Comment on above: Performed By: #### C BC #### [facility] [address] [place] [address] Dr. Brea Causey LDL CALC NORMAL SEE BELOW Normal [facility] Comment on above: Result Comment: <100 mg/dl OPTIMAL 100 - 129 mg/dl NEAR OR ABOVE OPTIMAL 130 - 159 mg/dl BORDERLINE HIGH 160 - 189 mg/dl HIGH >190 mg/dl VERY HIGH Performed By: #### C BC #### [facility] [address] [place] [address] Dr. Brea Causey Triglyceride [Mass/Vol] 77 mg/dL Normal <=150 [facility] Comment on above: Performed By: #### C BC #### [facility] [address] [place] [address] Dr. Brea Causey VLDL CALC 15.4 mg/dL Normal [facility] Comment on above: Performed By: #### C BC #### [facility] [address] [address] [address] Brea Causey MAGNESIUMon 11-30-2021 Magnesium [Mass/Vol] 1.4 mg/dL Critically low 1.8-2.4 [facility] Comment on above: Performed By: #### B KVIRUS #### [facility] [address] [place] [address] Dr. Brea Causey PHOSPHORUSon 11-30-2021 Phosphate [Mass/Vol] 4.1 mg/dL Normal 2.6-4.7 [facility] Comment on above: Performed By: #### C BC #### [facility] [address] [place] [address] Dr. Brea Causey PROF 14(COMP METB)on 022 Albumin [Mass/Vol] 4.2 g/dL Normal 3.4-5.0 [facility] Comment on above: Performed By: #### C BC #### [facility] [address] [place] [address] Dr. Brea Causey Albumin/Globulin [Mass ratio] 1.3 {ratio} Normal [facility] Comment on above: Performed By: #### C BC #### [facility] [address] [place] [address] Dr. Brea Causey ALP [Catalytic activity/Vol] 148 U/L Critically high 46-116 [facility] Comment on above: Performed By: #### C BC #### [facility] [address] [place] [address] Dr. Brea Causey ALT [Catalytic activity/Vol] 36 U/L Normal 16-63 [facility] Comment on above: Performed By: #### C BC #### [facility] [address] [place] [address] Dr. Brea Causey Anion gap [Moles/Vol] 14.7 mmol/L Normal [facility] Comment on above: Performed By: #### C BC #### [facility] [address] [place] [address] Dr. Brea Causey AST [Catalytic activity/Vol] 21 U/L Normal 15-37 [facility] Comment on above: Performed By: #### C BC #### [facility] [address] [place] [address] Dr. Brea Causey Bilirubin [Mass/Vol] 0.4 mg/dL Normal 0.2-1.0 [facility] Comment on above: Performed By: #### C BC #### [facility] [address] [place] [address] Dr. Brea Causey Calcium [Mass/Vol] 8.3 mg/dL Critically low 8.5-10.1 [facility] Comment on above: Performed By: #### C BC #### [facility] [address] [place] [address] Dr. Brea Causey Chloride [Moles/Vol] 98 mmol/L Normal 98-107 [facility] Comment on above: Performed By: #### C BC #### [facility] [address] [place] [address] Dr. Brea Causey CO2 [Moles/Vol] 27.2 mmol/L Normal 21.0-32.0 [facility] Comment on above: Performed By: #### C BC #### [facility] [address] [place] [address] Dr. Brea Causey Creatinine [Mass/Vol] 1.10 mg/dL Normal 0.70-1.30 [facility] Comment on above: Performed By: #### C BC #### [facility] [address] [place] [address] Dr. Brea Causey EGFR-AF GUINEAN >60 Normal >=60 [facility] Comment on above: Performed By: #### C BC #### [facility] [address] [place] [address] Dr. Brea Causey EGFR-NON AF GUINEAN >60 Normal >=60 [facility] Comment on above: Performed By: #### C BC #### [facility] [address] [place] [address] Dr. Brea Causey Globulin (S) [Mass/Vol] 3.2 g/dL Normal [facility] Comment on above: Performed By: #### C BC #### [facility] [address] [place] [address] Dr. Brea Causey Glucose [Mass/Vol] 173 mg/dL Critically high 74-106 [facility] Comment on above: Performed By: #### C BC #### [facility] [address] [place] [address] Dr. Brea Causey Potassium [Moles/Vol] 4.9 mmol/L Normal 3.5-5.1 [facility] Comment on above: Performed By: #### C BC #### [facility] [address] [place] [address] Dr. Brea Causey Protein [Mass/Vol] 7.4 g/dL Normal 6.4-8.2 [facility] Comment on above: Performed By: #### C BC #### [facility] [address] [place] [address] Dr. Brea Causey Sodium [Moles/Vol] 135 mmol/L Critically low 136-145 [facility] Comment on above: Performed By: #### C BC #### [facility] [address] [place] [address] Dr. Brea Causey Urea nitrogen [Mass/Vol] 14.0 mg/dL Normal 7.0-18.0 [facility] Comment on above: Performed By: #### C BC #### [facility] [address] [place] [address] Dr. Brea Causey Urea nitrogen/Creatinine [Mass ratio] 12.7 mg/mg Normal [facility] Comment on above: Performed By: #### C BC #### [facility] [address] [place] [address] Dr. Brea Causey URIC ACID SERUMon 11-30-2021 Urate [Mass/Vol] 7.8 mg/dL Critically high 3.5-7.2 [facility] Comment on above: Performed By: #### C BC #### [facility] [address] [place] [address] Dr. Brea Causey BNPon 11-14-2021 Natriuretic peptide B (Bld) [Mass/Vol] 350.0 pg/mL Normal <=900.0 [facility] Comment on above: Performed By: #### C BC #### [facility] [address] [place] [address] Dr. Brea Causey CBC AUTO DIFFon 11-14-2021 BASO # 0.0 103/ul Normal 0.0-0.1 [facility] Comment on above: Performed By: #### C BC #### [facility] [address] [place] [address] Dr. Brea Causey Basophils/100 WBC (Bld) 0.1 % Critically low 0.2-2.0 [facility] Comment on above: Performed By: #### C BC #### [facility] [address] [place] [address] Dr. Bera Causey EO # 0.2 103/ul Normal 0.0-0.7 [facility] Comment on above: Performed By: #### C BC #### [facility] [address] [place] [address] Dr. Brea Causey Eosinophils/100 WBC (Bld) 1.4 % Normal 0.9-7.0 [facility] Comment on above: Performed By: #### C BC #### [facility] [address] [place] [address] Dr. Brea Causey Erythrocyte distribution width (RBC) [Ratio] 13.1 % Normal 11.0-15.0 [facility] Comment on above: Performed By: #### C BC #### [facility] [address] [place] [address] Dr. Brea Causey Hematocrit (Bld) [Volume fraction] 39.4 % Critically low 42.0-54.0 [facility] Comment on above: Performed By: #### C BC #### [facility] [address] [place] [address] Dr. Brea Causey Hemoglobin (Bld) [Mass/Vol] 13.2 g/dL Critically low 14.0-18.0 [facility] Comment on above: Performed By: #### C BC #### [facility] [address] [place] [address] Dr. Brea Causey IG # 0.11 10e3/ul Critically high 0.00-0.03 [facility] Comment on above: Performed By: #### C BC #### [facility] [address] [place] [address] Dr. Brea Causey IG % 0.6 % Critically high 0.0-0.5 [facility] Comment on above: Performed By: #### C BC #### [facility] [address] [place] [address] Dr. Brea Causey LYMPH # 1.1 103/ul Critically low 1.2-3.8 [facility] Comment on above: Performed By: #### C BC #### [facility] [address] [place] [address] Dr. Brea Causey Lymphocytes/100 WBC (Bld) 6.7 % Critically low 20.5-60.0 [facility] Comment on above: Performed By: #### C BC #### [facility] [address] [place] [address] Dr. Brea Causey MANUAL DIFF REQ NO Normal [facility] Comment on above: Performed By: #### C BC #### [facility] [address] [place] [address] Dr. Brea Causey MCH (RBC) [Entitic mass] 29.5 pg Normal 25.9-34.0 [facility] Comment on above: Performed By: #### C BC #### [facility] [address] [place] [address] Dr. Brea Causey MCHC (RBC) [Mass/Vol] 33.5 g/dL Normal 29.9-35.[address] [facility] Comment on above: Performed By: #### C BC #### [facility] [address] [place] [address] Dr. Brea Causey MCV (RBC) [Entitic vol] 88.1 fL Normal 80.0-94.0 [facility] Comment on above: Performed By: #### C BC #### [facility] [address] [place] [address] Dr. Brea Causey MONO # 1.5 103/ul Critically high 0.3-0.8 [facility] Comment on above: Performed By: #### C BC #### [facility] [address] [place] [address] Dr. Brea Causey Monocytes/100 WBC (Bld) 8.6 % Normal 1.7-12.0 [facility] Comment on above: Performed By: #### C BC #### [facility] [address] [place] [address] Dr. Brea Causey NEUT # 14.0 103/ul Critically high 1.4-6.[address] [facility] Comment on above: Performed By: #### C BC #### [facility] [address] [place] [address] Dr. Brea Causey Neutrophils/100 WBC (Bld) 82.6 % Critically high 43.0-75.0 [facility] Comment on above: Performed By: #### C BC #### [facility] [address] [place] [address] Dr. Brea Causey Platelet mean volume (Bld) [Entitic vol] 9.5 fL Normal 9.5-13.[address] [facility] Comment on above: Performed By: #### C BC #### [facility] [address] [place] [address] Dr. Brea Causey PLT 303 103/ul Normal 150-[address] [facility] Comment on above: Performed By: #### C BC #### [facility] [address] [place] [address] Dr. Brea Causey RBC 4.47 106/ul Critically low 4.70-6.10 [facility] Comment on above: Performed By: #### C BC #### [facility] [address] [place] [address] Dr. Brea Causey WBC 17.0 103/ul Critically high 4.0-11.[address] [facility] Comment on above: Performed By: #### C BC #### [facility] [address] [place] [address] Dr. Brea Cause[facility] SARS-CoV-2 (COVID-19) RNA ISI+probe Ql (Unsp spec) Not detected Normal NOT DETECTED [facility] Comment on above: Result Comment: When [...] for this test is supported by the Guest Service Aide of Health and Human Service's declaration that [...] CMP, LIPID, DBIL, PHOS, MG #### [facility] [address] [place] [address] Dr. Brea Causey ER URINE PROFILEon 2 Bilirubin Ql (U) Negative Normal NEGATIVE [facility] [facility] Comment on above: Performed By: #### U CLINT, CMP, LIPID, DBIL, PHOS, MG #### [facility] [address] [place] [address] Dr. Brea Causey Clarity (U) CLEAR Normal CLEAR [facility] Comment on above: Performed By: #### U CLINT, CMP, LIPID, DBIL, PHOS, MG #### [facility] [address] [place] [address] Dr. Brea Causey Color (U) YELLOW Normal YELLOW [facility] Comment on above: Performed By: #### U CLINT, CMP, LIPID, DBIL, PHOS, MG #### [facility] [address] [place] [address] Dr. Brea Causey ERUD A micrscopic examination will be performed if indicated. Normal [facility] Comment on above: Performed By: #### U CLINT, CMP, LIPID, DBIL, PHOS, MG #### [facility] [address] [place] [address] Dr. Brea Causey Glucose Ql (U) Negative Normal NEGATIVE [facility] Comment on above: Performed By: #### U CLINT, CMP, LIPID, DBIL, PHOS, MG #### [facility] [address] [place] [address] Dr. Brea Causey Hemoglobin Ql (U) Negative Normal NEGATIVE [facility] Comment on above: Performed By: #### U CLINT, CMP, LIPID, DBIL, PHOS, MG #### [facility] [address] [address] [address] Brea Causey Ketones Ql (U) Negative Normal NEGATIVE [facility] Comment on above: Performed By: #### U CLINT, CMP, LIPID, DBIL, PHOS, MG #### [facility] [address] [address] [address] Brea Causey LEUKOCYTES Negative Normal NEGATIVE [facility] Comment on above: Performed By: #### U CLINT, CMP, LIPID, DBIL, PHOS, MG #### [facility] [address] [place] [address] Dr. Brea Causey Nitrite Ql (U) Negative Normal NEGATIVE [facility] Comment on above: Performed By: #### U CLINT, CMP, LIPID, DBIL, PHOS, MG #### [facility] [address] [place] [address] Dr. Brea Causey pH (U) 6.0 [pH] Normal 5-[address] [facility] Comment on above: Performed By: #### U CLINT, CMP, LIPID, DBIL, PHOS, MG #### [facility] [address] [place] [address] Dr. Brea Causey SPEC GRAVITY <=1.005 Abnormal 1.005-<=1.025 [facility] Comment on above: Performed By: #### U CLINT, CMP, LIPID, DBIL, PHOS, MG #### [facility] [address] [address] [address] Brea Causey UA PROTEIN Negative Normal NEGATIVE/ TRACE [facility] Comment on above: Performed By: #### U CLINT, CMP, LIPID, DBIL, PHOS, MG #### [facility] [address] [place] [address] Dr. Brea Causey UR MICRO IND NOT INDICATED Normal [facility] Comment on above: Performed By: #### U CLINT, CMP, LIPID, DBIL, PHOS, MG #### [facility] [address] [place] [address] Dr. Brea Causey Urobilinogen Qn (U) 0.2 {Sabine'U}/dL Normal 0.2 - 1. 0 [facility] Comment on above: Performed By: #### U CLINT, CMP, LIPID, DBIL, PHOS, MG #### [facility] [address] [address] [address] Brea Causey GI PANEL (PCR)on 11-14-2021 Adenovirus F 40/41 Not detected Normal NOT DETECTED [facility] Comment on above: Performed By: #### U CLINT, CMP, LIPID, DBIL, PHOS, MG #### [facility] [address] [address] [address] Brea Causey Astrovirus Not detected Normal NOT DETECTED [facility] Comment on above: Performed By: #### U CLINT, CMP, LIPID, DBIL, PHOS, MG #### [facility] [address] [place] [address] Dr. Brea Causey C. Diff toxin A/B Not detected Normal NOT DETECTED [facility] Comment on above: Performed By: #### U CLINT, CMP, LIPID, DBIL, PHOS, MG #### [facility] [address] [address] [address] Brea Causey Campylobacter Not detected Normal NOT DETECTED [facility] Comment on above: Performed By: #### U CLINT, CMP, LIPID, DBIL, PHOS, MG #### [facility] [address] [address] [address] Brea Causey Cryptosporidium Not detected Normal NOT DETECTED The [facility] Comment on above: Performed By: #### U CLINT, CMP, LIPID, DBIL, PHOS, MG #### [facility] [address] [address] [address] Brea Causey Cyclos. Cayetanensis Not detected Normal NOT DETECTED [facility] Comment on above: Performed By: #### U CLINT, CMP, LIPID, DBIL, PHOS, MG #### [facility] [address] [address] [address] Brea Causey E. Coli O157 Not Applicable Normal Not Applicable [facility] Comment on above: Performed By: #### U CLINT, CMP, LIPID, DBIL, PHOS, MG #### [facility] [address] [address] [address] Brea Causey E. histolytica Not detected Normal NOT DETECTED [facility] Comment on above: Performed By: #### U CLINT, CMP, LIPID, DBIL, PHOS, MG #### [facility] [address] [address] [address] Brea Causey EAEC Not detected Normal NOT DETECTED [facility] Comment on above: Performed By: #### U CLINT, CMP, LIPID, DBIL, PHOS, MG #### [facility] [address] [address] [address] Brea Causey EIEC Not detected Normal NOT DETECTED [facility] Comment on above: Performed By: #### U CLINT, CMP, LIPID, DBIL, PHOS, MG #### [facility] [address] [place] [address] Dr. Brea Causey EPEC Not detected Normal NOT DETECTED [facility] Comment on above: Performed By: #### U CLINT, CMP, LIPID, DBIL, PHOS, MG #### [facility] [address] [address] [address] Brea Causey ETEC Not detected Normal NOT DETECTED [facility] Comment on above: Performed By: #### U CLINT, CMP, LIPID, DBIL, PHOS, MG #### [facility] [address] [address] [address] Brea Causey G. Lamblia Not detected Normal NOT DETECTED [facility] Comment on above: Performed By: #### U CLINT, CMP, LIPID, DBIL, PHOS, MG #### [facility] [address] [address] [address] Brea PENNL CONTROLS PASSED Normal [facility] Comment on above: Performed By: #### U CLINT, CMP, LIPID, DBIL, PHOS, MG #### [facility] [address] [address] [address] Brea HUTTONNL DAVID HEADER GI PANEL BACTERIA Normal [facility] Comment on above: Performed By: #### U CLINT, CMP, LIPID, DBIL, PHOS, MG #### [facility] [address] [address] [address] Brea PINTO ECOLI GI PANEL DIARRHEAGENIC E.COLI / SHIGELLA Normal [facility] Comment on above: Performed By: #### U CLINT, CMP, LIPID, DBIL, PHOS, MG #### [facility] [address] [address] [address] Brea PINTO INFO SEE BELOW Normal [facility] Comment on above: Result Comment: EAEC - Enteroaggregative E. Coli EPEC- Enteropathogenic E. Coli ETEC- Enterotoxigenic E. Coli lt/st STEC- Shigella-like toxin-producing E. Coli stx1/stx2 EIEC- Shigella/Enteroinvasive E. Coli Performed By: #### U CLINT, CMP, LIPID, DBIL, PHOS, MG #### [facility] [address] [place] [address] Dr. Brea PINTO PARASITES GI PANEL PARASITES Normal [facility] Comment on above: Performed By: #### U CLINT, CMP, LIPID, DBIL, PHOS, MG #### [facility] [address] [place] [address] Dr. Brea PINTO VIRUS GI PANEL VIRUSES Normal [facility] Comment on above: Performed By: #### U CLINT, CMP, LIPID, DBIL, PHOS, MG #### [facility] [address] [place] [address] Dr. Brea Causey Norovirus GI/GII Not detected Normal NOT DETECTED [facility] Comment on above: Performed By: #### U CLINT, CMP, LIPID, DBIL, PHOS, MG #### [facility] [address] [place] [address] Dr. Brea Causey P. Shigelloides Not detected Normal NOT DETECTED [facility] Comment on above: Performed By: #### U CLINT, CMP, LIPID, DBIL, PHOS, MG #### [facility] [address] [place] [address] Dr. Brea Causey Rotavirus A Not detected Normal NOT DETECTED [facility] Comment on above: Performed By: #### U CLINT, CMP, LIPID, DBIL, PHOS, MG #### [facility] [address] [address] [address] Brea Causey Salmonella Not detected Normal NOT DETECTED [facility] Comment on above: Performed By: #### U CLINT, CMP, LIPID, DBIL, PHOS, MG #### [facility] [address] [address] [address] Bera Causey Sapovirus Not detected Normal NOT DETECTED [facility] Comment on above: Performed By: #### U CLINT, CMP, LIPID, DBIL, PHOS, MG #### [facility] [address] [place] [address] Dr. Brea Causey STEC Not detected Normal NOT DETECTED [facility] Comment on above: Performed By: #### U CLINT, CMP, LIPID, DBIL, PHOS, MG #### [facility] [address] [address] [address] Brea Causey Vibrio Not detected Normal NOT DETECTED [facility] Comment on above: Performed By: #### U CLINT, CMP, LIPID, DBIL, PHOS, MG #### [facility] [address] [place] [address] Dr. Brea Causey Vibrio Cholera Not detected Normal NOT DETECTED [facility] Comment on above: Performed By: #### U CLINT, CMP, LIPID, DBIL, PHOS, MG #### [facility] [address] [address] [address] Brea Causey Y. Enterocolitica Not detected Normal NOT DETECTED [facility] Comment on above: Performed By: #### U CLINT, CMP, LIPID, DBIL, PHOS, MG #### [facility] [address] [place] [address] Dr. Brea Causey PROF 14(COMP METB)on 022 Albumin [Mass/Vol] 4.0 g/dL Normal 3.4-5.0 [facility] Comment on above: Performed By: #### C BC #### [facility] [address] [place] [address] Dr. Brea Causey Albumin/Globulin [Mass ratio] 1.3 {ratio} Normal [facility] Comment on above: Performed By: #### C BC #### [facility] [address] [place] [address] Dr. Brea Causey ALP [Catalytic activity/Vol] 142 U/L Critically high 46-116 [facility] Comment on above: Performed By: #### C BC #### [facility] [address] [place] [address] Dr. Brea Causey ALT [Catalytic activity/Vol] 39 U/L Normal 16-63 [facility] Comment on above: Performed By: #### C BC #### [facility] [address] [place] [address] Dr. Brae Causey Anion gap [Moles/Vol] 13.6 mmol/L Normal [facility] Comment on above: Performed By: #### C BC #### [facility] [address] [place] [address] Dr. Brea Causey AST [Catalytic activity/Vol] 23 U/L Normal 15-37 [facility] Comment on above: Performed By: #### C BC #### [facility] [address] [place] [address] Dr. Brea Causey Bilirubin [Mass/Vol] 0.4 mg/dL Normal 0.2-1.0 [facility] Comment on above: Performed By: #### C BC #### [facility] [address] [place] [address] Dr. Brea Causey Calcium [Mass/Vol] 8.4 mg/dL Critically low 8.5-10.1 [facility] Comment on above: Performed By: #### C BC #### [facility] [address] [place] [address] Dr. Brea Causey Chloride [Moles/Vol] 97 mmol/L Critically low 98-107 [facility] Comment on above: Performed By: #### C BC #### [facility] [address] [place] [address] Dr. Brea Causey CO2 [Moles/Vol] 26.1 mmol/L Normal 21.0-32.0 [facility] Comment on above: Performed By: #### C BC #### [facility] [address] [address] [address] Brea Causey Creatinine [Mass/Vol] 1.21 mg/dL Normal 0.70-1.30 [facility] Comment on above: Performed By: #### C BC #### [facility] [address] [address] [address] Brea Causey EGFR-AF GUINEAN >60 Normal >=60 [facility] Comment on above: Performed By: #### C BC #### [facility] [address] [address] [address] Brea Causey EGFR-NON AF GUINEAN 59 mL/min/1.73m2 Critically low >=60 [facility] Comment on above: Performed By: #### C BC #### [facility] [address] [address] [address] Brea Causey Globulin (S) [Mass/Vol] 3.2 g/dL Normal [facility] Comment on above: Performed By: #### C BC #### [facility] [address] [place] [address] Dr. Brea Causey Glucose [Mass/Vol] 227 mg/dL Critically high 74-106 T [facility] Comment on above: Performed By: #### C BC #### [facility] [address] [address] [address] Brea Causey Potassium [Moles/Vol] 4.7 mmol/L Normal 3.5-5.1 [facility] Comment on above: Performed By: #### C BC #### [facility] [address] [address] [address] Brea Causey Protein [Mass/Vol] 7.2 g/dL Normal 6.4-8.2 [facility] Comment on above: Performed By: #### C BC #### [facility] [address] [address] [address] Brea Causey Sodium [Moles/Vol] 132 mmol/L Critically low 136-[address] [facility] Comment on above: Performed By: #### C BC #### [facility] [address] [address] [address] Brea Causey Urea nitrogen [Mass/Vol] 12.0 mg/dL Normal 7.0-18.0 [facility] Comment on above: Performed By: #### C BC #### [facility] [address] [address] [address] Brea Causey Urea nitrogen/Creatinine [Mass ratio] 9.9 mg/mg Normal [facility] Comment on above: Performed By: #### C BC #### [facility] [address] [address] [address] Brea Causey CBC W/DIFFon 10-31-2021 ABS IMM GRANS 0.1 10*3/uL Normal 0.0-0.[address] [facility] Comment on above: Performed By: #### 4 5506, 65033, 48944, 91264, 63317, 17921 #### [facility] [address] [place] [address], [facility] ABS NEUTROPHILS 5.9 10*3/uL Normal 1.6-7.[address] [facility] Comment on above: Performed By: #### 4 5506, 42996, 44523, 81653, 23135, 35949 #### [facility] [address] [place] [address], [facility] Basophils (Bld) [#/Vol] 0.0 10*3/uL Normal 0.0-0.[address] [facility] Comment on above: Performed By: #### 4 5506, 01772, 05180, 25313, 22213, 19924 #### [facility] [address] [facility] [place] [address], [facility] Basophils/100 WBC (Bld) 0.3 % Normal 0.0-1.[address] [facility] Comment on above: Performed By: #### 4 5506, 97224, 56128, 57032, 73058, 04683 #### [facility] [address] [place] [address], [facility] Eosinophils (Bld) [#/Vol] 0.2 10*3/uL Normal 0.0-0.[address] [facility] Comment on above: Performed By: #### 4 5506, 30215, 63466, 83425, 18449, 32365 #### [facility] [address] [place] [address], [facility] Eosinophils/100 WBC (Bld) 2.3 % Normal 0.0-6.[address] [facility] Comment on above: Performed By: #### 4 5506, 05942, 94215, 50587, 98548, 58796 #### [facility] [address] Erythrocyte distribution width (RBC) [Ratio] 13.4 % Normal 11.5-15.[address] [facility] Comment on above: Performed By: #### 4 5506, 95641, 13109, 83616, 89198, 50774 #### [facility] [address] Hematocrit (Bld) [Volume fraction] 36.1 % Low 39.0-50.[address] [facility] Comment on above: Performed By: #### 4 5506, 20993, 04062, 60269, 10799, 31796 #### [facility] [address] Hemoglobin (Bld) [Mass/Vol] 11.9 g/dL Low 13.0-17.[address] [facility] Comment on above: Performed By: #### 4 5506, 88250, 90099, 79498, 93117, 80469 #### [facility] [address] [place] [address], [facility] IMMATURE GRANS 0.7 % Normal 0.0-1.[address] [facility] Comment on above: Performed By: #### 4 5506, 89627, 23298, 15890, 50136, 93224 #### [facility] [address] [facility] [place] [address], [facility] Lymphocytes (Bld) [#/Vol] 0.9 10*3/uL Low 1.2-4.[address] [facility] Comment on above: Performed By: #### 4 5506, 50605, 34634, 90145, 29233, 81596 #### [facility] [address] [place] [address], [facility] Lymphocytes/100 WBC (Bld) 12.1 % Low 20.0-45.[address] [facility] Comment on above: Performed By: #### 4 5506, 63054, 74619, 38108, 42723, 19896 #### [facility] [address] [place] [address], [facility] MCH (RBC) [Entitic mass] 29.3 pg Normal 27.0-33.[address] [facility] Comment on above: Performed By: #### 4 5506, 92896, 60543, 18638, 36532, 62870 #### [facility] [address] [place] [address], [facility] MCHC (RBC) [Mass/Vol] 33.0 g/dL Normal 32.0-35.[address] [facility] Comment on above: Performed By: #### 4 5506, 99415, 72102, 55565, 30205, 63531 #### [facility] [address] [place] [address], [facility] MCV (RBC) [Entitic vol] 88.9 fL Normal 82.0-98.[address] [facility] Comment on above: Performed By: #### 4 5506, 36513, 00456, 95922, 78284, 42038 #### [facility] [address] [facility] [place] [address], [facility] Monocytes (Bld) [#/Vol] 0.6 10*3/uL Normal 0.1-1.[address] [facility] Comment on above: Performed By: #### 4 5506, 38124, 63703, 54959, 60853, 05459 #### [facility] [address] [place] [address], [facility] MONOS 8.3 % Normal 5.0-12.[address] [facility] Comment on above: Performed By: #### 4 5506, 25388, 69979, 26882, 39900, 34211 #### [facility] [address] [place] [address], [facility] Neutrophils/100 WBC (Bld) 76.3 % High 40.0-72.[address] [facility] Comment on above: Performed By: #### 4 5506, 54793, 55932, 71917, 74009, 26954 #### [facility] [address] [place] [address], [facility] Nucleated RBC/100 WBC (Bld) [Ratio] 0 % Normal 0-[address] [facility] Comment on above: Performed By: #### 4 5506, 23989, 37491, 84091, 05640, 95858 #### [facility] [address] [place] [address], [place] PLAT CNT 260 10*3/uL Normal 150-[address] [facility] Comment on above: Performed By: #### 4 5506, 20298, 86265, 00328, 45715, 77098 #### [facility] [address] [place] [address], [place] RBC (Bld) [#/Vol] 4.06 10*6/uL Low 4.20-5.[address] [facility] Comment on above: Performed By: #### 4 5506, 75259, 15027, 25649, 22411, 03160 #### [facility] [address] [place] [address], [place] WBC (Bld) [#/Vol] 7.68 10*3/uL Normal 4.00-10.[address] [facility] Comment on above: Performed By: #### 4 5506, 57678, 91361, 46082, 53048, 43066 #### [facility] [address] [place] [address], [facility] COMP METABOLIC PANELon 10-31 Albumin [Mass/Vol] 4.4 g/dL Normal 3.5-5.[address] [facility] Comment on above: Performed By: #### 4 5506, 91526, 92741, 18155, 34667, 48562 #### [facility] [address] [place] [address], [facility] ALKALINE PHOSPH 132 IU/L High 34-[address] [facility] Comment on above: Performed By: #### 4 5506, 59561, 88999, 52649, 71375, 25740 #### [facility] [address] [place] [address], [place] ALT [Catalytic activity/Vol] 26 U/L Normal 7-[address] [facility] Comment on above: Performed By: #### 4 5506, 52188, 98797, 24435, 38299, 99131 #### [facility] [address] [place] [address], [place] AST [Catalytic activity/Vol] 17 U/L Normal 13-[address] [facility] Comment on above: Performed By: #### 4 5506, 01488, 86535, 32741, 85055, 16752 #### [facility] [address] [place] [address], [place] Bilirubin [Mass/Vol] 0.4 mg/dL Normal 0.3-1.[address] [facility] Comment on above: Performed By: #### 4 5506, 24585, 08900, 55857, 60362, 15613 #### [facility] [address] [place] [address], [place] Calcium [Mass/Vol] 8.6 mg/dL Normal 8.6-10.[address] [facility] Comment on above: Performed By: #### 4 5506, 77813, 92507, 50216, 75649, 37549 #### [facility] [address] [place] [address], [place] Chloride [Moles/Vol] 97 mmol/L Low 98-[address] [facility] Comment on above: Performed By: #### 4 5506, 47697, 52232, 74902, 31194, 75859 #### [facility] [address] [place] [address], [place] CO2 [Moles/Vol] 26 mmol/L Normal 21-[address] [facility] Comment on above: Performed By: #### 4 5506, 26379, 76618, 33419, 76313, 49451 #### [facility] [address] [place] [address], [place] Creatinine [Mass/Vol] 1.04 mg/dL Normal 0.70-1.[address] [facility] Comment on above: Performed By: #### 4 5506, 82241, 54764, 67928, 92162, 72474 #### [facility] [address] [place] [address], [place] GFR/1.73 sq M.predicted among blacks MDRD (S/P/Bld) [Vol rate/Area] mL/min/{1.73_m2} Normal >[address] [facility] Comment on above: Performed By: #### 4 5506, 52258, 83350, 36784, 40105, 03616 #### [facility] [address] [place] [address], [place] GFR/1.73 sq M.predicted among non-blacks MDRD (S/P/Bld) [Vol rate/Area] mL/min/{1.73_m2} Normal >[address] [facility] Comment on above: Performed By: #### 4 5506, 88508, 67545, 64751, 51830, 72233 #### [facility] [address] [place] [address], [facility] Glucose [Mass/Vol] 158 mg/dL High 70-[address] [facility] Comment on above: Performed By: #### 4 5506, 22768, 73044, 41883, 29096, 71686 #### [facility] [address] [place] [address], [place] Potassium [Moles/Vol] 4.4 mmol/L Normal 3.5-5.[address] [facility] Comment on above: Performed By: #### 4 5506, 21299, 73063, 69312, 15520, 77485 #### [facility] [address] [place] [address], [place] Protein [Mass/Vol] 6.6 g/dL Normal 6.0-8.[address] [facility] Comment on above: Performed By: #### 4 5506, 13727, 96399, 34504, 64719, 35929 #### [facility] [address] [place] [address], [place] Sodium [Moles/Vol] 131 mmol/L Low 136-[address] [facility] Comment on above: Performed By: #### 4 5506, 11399, 49759, 54453, 26692, 24164 #### [facility] [address] [place] [address], [place] Urea nitrogen [Mass/Vol] 15 mg/dL Normal 7-[address] [facility] Comment on above: Performed By: #### 4 5506, 49840, 94988, 77795, 33892, 20381 #### [facility] [address] [place] [address], [place] DIRECT BILIon 10-31-2021 Bilirubin.direct [Mass/Vol] 0.1 mg/dL Normal 0.0-0.[address] [facility] Comment on above: Performed By: #### 4 5506, 75610, 99901, 38485, 66708, 87035 #### [facility] [address] [place] [address], [place] LIPID PROFILEon 10-31-2021 Cholesterol [Mass/Vol] 70 mg/dL Low 120-[address] [facility] Comment on above: Result Comment: CHOL ESTEROL REFERENCE RANGE: 20 YEARS AND OLDER CARDIOVASCULAR RISK Less than 200 mg/dl Low Risk 200 to 239 mg/dl Borderline Risk 240 mg/dl and greater High Risk Performed By: #### 4 5506, 59052, 31262, 08699, 17383, 89718 #### [facility] [address] [place] [address], [place] Cholesterol in HDL [Mass/Vol] 35 mg/dL Normal 23-[address] [facility] Comment on above: Result Comment: Slig ht variation in normal range could be due to gender and/or age. HDL CHOLESTEROL REFERENCE RANGE: 20 years and older Cardiovascular Risk > or =60 mg/dL Desirable 40 TO 59 mg/dL Low Risk <40 mg/dL High Risk Performed By: #### 4 5506, 02705, 94196, 31894, 17039, 12955 #### [facility] [address] [place] [address], [place] Cholesterol in LDL [Mass/Vol] 20 mg/dL Normal 0-[address] [facility] Comment on above: Result Comment: LDL IS A CALCULATION LDL IS ONLY VALID IF THE TRIG IS LESS THAN 400. Performed By: #### 4 5506, 87561, 97471, 60084, 26304, 22623 #### [facility] [address] [place] [address], [place] Cholesterol.total/Chol esterol in HDL [Mass ratio] 2.0 {ratio} Normal .0-4.[address] [facility] Comment on above: Performed By: #### 4 5506, 27958, 01064, 74526, 92553, 65018 #### [facility] [address] [place] [address], [place] NON-HDL CHOLESTEROL 35 mg/dL Normal [facility] Comment on above: Performed By: #### 4 5506, 47277, 20274, 82362, 64633, 15507 #### [facility] [address] Triglyceride [Mass/Vol] 73 mg/dL Normal 40-[address] [facility] Comment on above: Result Comment: TRIG LYCERIDE REFERENCE RANGE: 20 YEARS AND OLDER CARDIOVASCULAR RISK LESS THAN 150 mg/dl LOW RISK 150 TO 199 mg/dl BORDERLINE RISK 200 mg/dl AND GREATER HIGH RISK Performed By: #### 4 5506, 05630, 22433, 94763, 95845, 67483 #### [facility] [address] [facility] [address] VLDL CHOL 15 mg/dL Normal 0-[address] [facility] Comment on above: Performed By: #### 4 5506, 38218, 92270, 04917, 21260, 65231 #### [facility] [address] [place] [address], [facility] MAGNESIUM BLOODon 10-31-2021 Magnesium [Mass/Vol] 1.1 mg/dL Critically low 1.9-2.[address] [facility] Comment on above: Performed By: #### 4 5506, 73696, 77992, 45777, 61070, 35075 #### [facility] [address] [place] [address], [facility] PHOSPHORUS BLOODon 2 Phosphate [Mass/Vol] 3.0 mg/dL Normal 2.5-5.[address] [facility] Comment on above: Performed By: #### 4 5506, 10307, 86802, 36915, 47120, 13182 #### [facility] [address] [place] [address], [facility] PROSPERAon 10-31-2021 PROSPERA KIT Results to be mailed directly to physician's office by reference lab. Normal [facility] Comment on above: Result Comment: Test performed by [id number] [place] [address] Specimen collected for transplant patient and sent to [facility] per Dr instructions. No charge. No result expected. For billing and tracking purposes only. Performed By: #### 4 5506, 70451, 66670, 60035, 48270, 72703 #### [facility] [address] RESULT Results to be mailed directly to physician's office by reference lab. Normal [facility] Comment on above: Performed By: #### 4 5506, 80960, 98783, 13731, 54814, 76598 #### [facility] [address] TACROLIMUSon 10-31-2021 Tacrolimus (Bld) [Mass/Vol] 7.6 ng/mL Normal 5.0-20.[address] [facility] Comment on above: Result Comment: The [employer] Tacrolimus assay is a delayed one-step immunoassay for the quantitative determination of tacrolimus in human whole blood using the chemiluminescent microparticle immunoassay (CMIA) technology with flexible assay protocols, referred to as Chemiflex. Performed By: #### 4 5506, 33067, 64792, 96646, 56561, 63962 #### [facility] [address] URIC ACID BLOODon 10-31-2021 Urate [Mass/Vol] 7.8 mg/dL High 4.4-7.[address] [facility] Comment on above: Performed By: #### 4 5506, 70440, 92430, 71631, 24508, 45597 #### [facility] [address] NM PARATHYROID WITH SPECT AN D CTon 07-24-2021 NM PARATHYROID WITH SPECT AND CT [facility] Department of Radiology [address] [place] [address] Patient Name: ROGER KERR : 1950 Sex: M Age: Race: White Pt. Location: 20 Patient Status: D Ordered Date: 06/26/2021 8:40:00 AM Completed Date: 07/24/2021 01:21 PM Requesting Provider: SHAINA SUBRAMANIAN Attending Provider: SHAINA SUBRAMANIAN Report Copy To: JERICHO MCCARTHY Signs & Symptoms: E21.3 Hyperparathyroidism, unspecified I10 History: [place] NPC Req. per [place] A/B for CPT 16159 *SLA Comments: , , , Ordering Provider [...] SPECT. Electronically signed: Nan Allen. Transcribed by: [email or web address], User Resident: Electronically Signed by: NAN ALLEN @ 07/27/2021 12:[address] [facility] Comment on above: Order Comment: , , = ========= , Ordering Provider - SHAINA SUBRAMANIAN MD , CBC W/DIFFon 06-22-2021 ABS IMM GRANS 0.1 10*3/uL Normal 0.0-0.[address] [facility] Comment on above: Performed By: #### 4 5506, 77775, 63481, 66913, 40116, 07685 #### [facility] [address] ABS NEUTROPHILS 4.7 10*3/uL Normal 1.6-7.[address] [facility] Comment on above: Performed By: #### 4 5506, 32041, 32626, 40417, 54060, 77300 #### [facility] [address] [place] [address], [facility] Basophils (Bld) [#/Vol] 0.0 10*3/uL Normal 0.0-0.[address] [facility] Comment on above: Performed By: #### 4 5506, 13554, 67463, 21286, 81254, 39728 #### [facility] [address] [place] [address], [facility] Basophils/100 WBC (Bld) 0.6 % Normal 0.0-1.[address] [facility] Comment on above: Performed By: #### 4 5506, 65066, 63947, 38513, 00026, 12570 #### [facility] [address] [place] [address], [facility] Eosinophils (Bld) [#/Vol] 0.2 10*3/uL Normal 0.0-0.[address] [facility] Comment on above: Performed By: #### 4 5506, 38821, 26833, 92758, 03389, 16317 #### [facility] [address] [place] [address], [facility] Eosinophils/100 WBC (Bld) 2.5 % Normal 0.0-6.[address] [facility] Comment on above: Performed By: #### 4 5506, 89939, 30133, 81548, 65040, 26642 #### [facility] [address] Erythrocyte distribution width (RBC) [Ratio] 13.6 % Normal 11.5-15.[address] [facility] Comment on above: Performed By: #### 4 5506, 34077, 73336, 73067, 08686, 74521 #### [facility] [address] [facility] [address] Hematocrit (Bld) [Volume fraction] 36.3 % Low 39.0-50.[address] [facility] Comment on above: Performed By: #### 4 5506, 43385, 06449, 02797, 26001, 60721 #### [facility] [address] [place] [address], [facility] Hemoglobin (Bld) [Mass/Vol] 11.7 g/dL Low 13.0-17.[address] [facility] Comment on above: Performed By: #### 4 5506, 17771, 75687, 68193, 79954, 27927 #### [facility] [address] [place] [address], [facility] IMMATURE GRANS 0.8 % Normal 0.0-1.[address] [facility] Comment on above: Performed By: #### 4 5506, 20170, 72244, 04152, 96970, 94580 #### [facility] [address] [place] [address], [facility] Lymphocytes (Bld) [#/Vol] 0.9 10*3/uL Low 1.2-4.[address] [facility] Comment on above: Performed By: #### 4 5506, 08036, 05766, 25554, 05348, 12613 #### [facility] [address] [facility] [place] [address], [facility] Lymphocytes/100 WBC (Bld) 13.6 % Low 20.0-45.[address] [facility] Comment on above: Performed By: #### 4 5506, 82167, 03939, 76259, 75934, 33912 #### [facility] [address] [facility] MCH (RBC) [Entitic mass] 28.6 pg Normal 27.0-33.[address] [facility] Comment on above: Performed By: #### 4 5506, 79452, 78070, 13043, 13334, 98122 #### [facility] [address] [facility] [place] [address], [facility] MCHC (RBC) [Mass/Vol] 32.2 g/dL Normal 32.0-35.[address] [facility] Comment on above: Performed By: #### 4 5506, 05242, 51475, 33988, 20007, 35776 #### [facility] [address] [facility] [address], [facility] MCV (RBC) [Entitic vol] 88.8 fL Normal 82.0-98.[address] [facility] Comment on above: Performed By: #### 4 5506, 04642, 67567, 88569, 84438, 25659 #### [facility] [address] [place] [address], [facility] Monocytes (Bld) [#/Vol] 0.6 10*3/uL Normal 0.1-1.[address] [facility] Comment on above: Performed By: #### 4 5506, 01170, 29066, 13052, 21528, 04063 #### [facility] [address] [place] [address], [place] MONOS 9.6 % Normal 5.0-12.[address] [facility] Comment on above: Performed By: #### 4 5506, 01549, 93916, 03504, 04768, 61737 #### [facility] [address] [place] [address], [place] Neutrophils/100 WBC (Bld) 72.9 % High 40.0-72.[address] [facility] Comment on above: Performed By: #### 4 5506, 73173, 64259, 73293, 46225, 01001 #### [facility] [address] [place] [address], [place] Nucleated RBC/100 WBC (Bld) [Ratio] 0 % Normal 0-[address] [facility] Comment on above: Performed By: #### 4 5506, 44895, 16340, 82708, 04271, 20258 #### [facility] [address] [place] [address], [place] PLAT CNT 263 10*3/uL Normal 150-[address] [facility] Comment on above: Performed By: #### 4 5506, 05158, 05213, 16382, 45352, 91072 #### [facility] [address] [place] [address], [place] RBC (Bld) [#/Vol] 4.09 10*6/uL Low 4.20-5.[address] [facility] Comment on above: Performed By: #### 4 5506, 08455, 12397, 47449, 18090, 40586 #### [facility] [address] [place] [address], [place] WBC (Bld) [#/Vol] 6.45 10*3/uL Normal 4.00-10.[address] [facility] Comment on above: Performed By: #### 4 5506, 90176, 95030, 68869, 84772, 57120 #### [facility] [address] [place] [address], [facility] COMP METABOLIC PANELon 06-22 Albumin [Mass/Vol] 4.3 g/dL Normal 3.5-5.[address] [facility] Comment on above: Performed By: #### 4 5506, 38089, 80161, 15973, 04542, 69819 #### [facility] [address] [place] [address], [facility] ALKALINE PHOSPH 143 IU/L High 34-[address] [facility] Comment on above: Performed By: #### 4 5506, 52453, 54068, 52486, 73867, 18138 #### [facility] [address] [place] [address], [place] ALT [Catalytic activity/Vol] 18 U/L Normal 7-[address] [facility] Comment on above: Performed By: #### 4 5506, 64321, 87581, 43356, 61032, 41954 #### [facility] [address] [place] [address], [place] AST [Catalytic activity/Vol] 15 U/L Normal 13-[address] [facility] Comment on above: Performed By: #### 4 5506, 31835, 43683, 43669, 72065, 85138 #### [facility] [address] [place] [address], [place] Bilirubin [Mass/Vol] 0.3 mg/dL Normal 0.3-1.[address] [facility] Comment on above: Performed By: #### 4 5506, 69525, 27794, 07213, 32380, 49650 #### [facility] [address] [place] [address], [place] Calcium [Mass/Vol] 10.6 mg/dL High 8.6-10.[address] [facility] Comment on above: Performed By: #### 4 5506, 40760, 02503, 81217, 37191, 49278 #### [facility] [address] [place] [address], [place] Chloride [Moles/Vol] 102 mmol/L Normal 98-[address] [facility] Comment on above: Performed By: #### 4 5506, 91070, 62100, 31068, 48662, 72137 #### [facility] [address] [place] [address], [place] CO2 [Moles/Vol] 24 mmol/L Normal 21-[address] [facility] Comment on above: Performed By: #### 4 5506, 79215, 64738, 46583, 73039, 43962 #### [facility] [address] [place] [address], [place] Creatinine [Mass/Vol] 1.04 mg/dL Normal 0.70-1.[address] [facility] Comment on above: Performed By: #### 4 5506, 23484, 33269, 06088, 48360, 05466 #### [facility] [address] [place] [address], [place] GFR/1.73 sq M.predicted among blacks MDRD (S/P/Bld) [Vol rate/Area] mL/min/{1.73_m2} Normal >[address] [facility] Comment on above: Performed By: #### 4 5506, 41733, 08191, 83891, 71582, 42118 #### [facility] [address] [place] [address], [place] GFR/1.73 sq M.predicted among non-blacks MDRD (S/P/Bld) [Vol rate/Area] mL/min/{1.73_m2} Normal >[address] [facility] Comment on above: Performed By: #### 4 5506, 03488, 58186, 52166, 78082, 46725 #### [facility] [address] [place] [address], [place] Glucose [Mass/Vol] 167 mg/dL High 70-[address] [facility] Comment on above: Performed By: #### 4 5506, 38614, 92407, 54792, 76435, 68030 #### [facility] [address] [place] [address], [place] Potassium [Moles/Vol] 5.3 mmol/L High 3.5-5.[address] [facility] Comment on above: Performed By: #### 4 5506, 28025, 49481, 91809, 12795, 67159 #### [facility] [address] [place] [address], [facility] Protein [Mass/Vol] 6.5 g/dL Normal 6.0-8.[address] [facility] Comment on above: Performed By: #### 4 5506, 11642, 75802, 30189, 32192, 59620 #### [facility] [address] [place] [address], [place] Sodium [Moles/Vol] 134 mmol/L Low 136-[address] [facility] Comment on above: Performed By: #### 4 5506, 16605, 55779, 59223, 64309, 73763 #### [facility] [address] [place] [address], [place] Urea nitrogen [Mass/Vol] 11 mg/dL Normal 7-[address] [facility] Comment on above: Performed By: #### 4 5506, 19622, 32131, 48365, 37242, 96013 #### [facility] [address] [place] [address], [place] DIRECT BILIon 06-22-2021 Bilirubin.direct [Mass/Vol] 0.1 mg/dL Normal 0.0-0.[address] [facility] Comment on above: Performed By: #### 4 5506, 18343, 37422, 99278, 46741, 08766 #### [facility] [address] [place] [address], [facility] LIPID PROFILEon 06-22-2021 Cholesterol [Mass/Vol] 77 mg/dL Low 120-[address] [facility] Comment on above: Result Comment: CHOL ESTEROL REFERENCE RANGE: 20 YEARS AND OLDER CARDIOVASCULAR RISK Less than 200 mg/dl Low Risk 200 to 239 mg/dl Borderline Risk 240 mg/dl and greater High Risk Performed By: #### 4 5506, 39285, 96782, 19432, 03971, 77192 #### [facility] [address] [facility] [place] [address], [facility] Cholesterol in HDL [Mass/Vol] 40 mg/dL Normal 23-[address] [facility] Comment on above: Result Comment: Slig ht variation in normal range could be due to gender and/or age. HDL CHOLESTEROL REFERENCE RANGE: 20 years and older Cardiovascular Risk > or =60 mg/dL Desirable 40 TO 59 mg/dL Low Risk <40 mg/dL High Risk Performed By: #### 4 5506, 54771, 14418, 17053, 62458, 78939 #### [facility] [address] [facility] [place] [address], [facility] Cholesterol in LDL [Mass/Vol] 24 mg/dL Normal 0-[address] [facility] Comment on above: Result Comment: LDL IS A CALCULATION LDL IS ONLY VALID IF THE TRIG IS LESS THAN 400. Performed By: #### 4 5506, 59330, 87695, 07162, 94971, 35585 #### [facility] [address] [place] [address], [place] Cholesterol.total/Chol esterol in HDL [Mass ratio] 1.9 {ratio} Normal .0-4.[address] [facility] Comment on above: Performed By: #### 4 5506, 73415, 43818, 40045, 97379, 95967 #### [facility] [address] [place] [address], [place] NON-HDL CHOLESTEROL 37 mg/dL Normal [facility] Comment on above: Performed By: #### 4 5506, 56342, 08101, 89186, 86078, 95765 #### [facility] [address] [place] [address], [facility] Triglyceride [Mass/Vol] 63 mg/dL Normal 40-[address] [facility] Comment on above: Result Comment: TRIG LYCERIDE REFERENCE RANGE: 20 YEARS AND OLDER CARDIOVASCULAR RISK LESS THAN 150 mg/dl LOW RISK 150 TO 199 mg/dl BORDERLINE RISK 200 mg/dl AND GREATER HIGH RISK Performed By: #### 4 5506, 75400, 67072, 00521, 22096, 83956 #### [facility] [address] [place] [address], [facility] VLDL CHOL 13 mg/dL Normal 0-[address] [facility] Comment on above: Performed By: #### 4 5506, 95326, 05611, 05174, 61987, 12176 #### [facility] [address] [place] [address], [facility] MAGNESIUM BLOODon 06-22-2021 Magnesium [Mass/Vol] 1.4 mg/dL Low 1.9-2.[address] [facility] Comment on above: Performed By: #### 4 5506, 83237, 51982, 59540, 37346, 65612 #### [facility] [address] [place] [address], [facility] PHOSPHORUS BLOODon Phosphate [Mass/Vol] 2.5 mg/dL Normal 2.5-5.[address] [facility] Comment on above: Performed By: #### 4 5506, 83788, 56073, 66093, 27197, 04445 #### [facility] [address] [place] [address], [facility] PTH INTACTon 06-22-2021 PTH INTACT 155 pg/mL High 12-[address] [facility] Comment on above: Performed By: #### 4 5506, 79869, 10594, 97876, 37076, 42020 #### [facility] [address] TACROLIMUSon 06-22-2021 Tacrolimus (Bld) [Mass/Vol] 21.0 ng/mL High 5.0-20.[address] [facility] Comment on above: Result Comment: The [employer] Tacrolimus assay is a delayed one-step immunoassay for the quantitative determination of tacrolimus in human whole blood using the chemiluminescent microparticle immunoassay (CMIA) technology with flexible assay protocols, referred to as Chemiflex. Performed By: #### 4 5506, 25052, 16175, 81598, 04673, 13322 #### [facility] [address] URIC ACID BLOODon 06-22-2021 Urate [Mass/Vol] 7.9 mg/dL High 4.4-7.[address] [facility] Comment on above: Performed By: #### 4 5506, 67805, 64167, 13260, 88398, 05997 #### [facility] [address] CBC W/DIFFon 04-19-2021 ABS IMM GRANS 0.1 10*3/uL Normal 0.0-0.[address] [facility] Comment on above: Performed By: #### 4 5506, 73466, 08477, 00492, 57783, 11350 #### [facility] [address] ABS NEUTROPHILS 5.2 10*3/uL Normal 1.6-7.[address] [facility] Comment on above: Performed By: #### 4 5506, 76681, 42892, 97272, 19307, 20066 #### [facility] [address] Basophils (Bld) [#/Vol] 0.0 10*3/uL Normal 0.0-0.[address] [facility] Comment on above: Performed By: #### 4 5506, 93184, 80754, 53113, 29703, 25825 #### [facility] [address] [place] [address], [facility] Basophils/100 WBC (Bld) 0.4 % Normal 0.0-1.[address] [facility] Comment on above: Performed By: #### 4 5506, 47393, 51395, 18815, 60249, 70444 #### [facility] [address] [place] [address], [facility] Eosinophils (Bld) [#/Vol] 0.2 10*3/uL Normal 0.0-0.[address] [facility] Comment on above: Performed By: #### 4 5506, 84805, 36639, 46654, 75870, 04273 #### [facility] [address] [place] [address], [facility] Eosinophils/100 WBC (Bld) 2.9 % Normal 0.0-6.[address] [facility] Comment on above: Performed By: #### 4 5506, 51056, 75405, 18751, 21769, 83807 #### [facility] [address] [place] [address], [facility] Erythrocyte distribution width (RBC) [Ratio] 13.3 % Normal 11.5-15.[address] [facility] Comment on above: Performed By: #### 4 5506, 71997, 75468, 58006, 54166, 37644 #### [facility] [address] [place] [address], [place] Hematocrit (Bld) [Volume fraction] 37.1 % Low 39.0-50.[address] [facility] Comment on above: Performed By: #### 4 5506, 81135, 48672, 75503, 51570, 94665 #### [facility] [address] [place] [address], [place] Hemoglobin (Bld) [Mass/Vol] 11.7 g/dL Low 13.0-17.[address] [facility] Comment on above: Performed By: #### 4 5506, 34075, 77172, 35796, 36053, 55523 #### [facility] [address] [place] [address], [facility] IMMATURE GRANS 0.9 % Normal 0.0-1.[address] [facility] Comment on above: Performed By: #### 4 5506, 84103, 64516, 26509, 79983, 94409 #### [facility] [address] [place] [address], [facility] Lymphocytes (Bld) [#/Vol] 0.9 10*3/uL Low 1.2-4.[address] [facility] Comment on above: Performed By: #### 4 5506, 11972, 82039, 76552, 03942, 56905 #### [facility] [address] [place] [address], [facility] Lymphocytes/100 WBC (Bld) 12.5 % Low 20.0-45.[address] [facility] Comment on above: Performed By: #### 4 5506, 18647, 79893, 72925, 41393, 90460 #### [facility] [address] [place] [address], [facility] MCH (RBC) [Entitic mass] 29.0 pg Normal 27.0-33.[address] [facility] Comment on above: Performed By: #### 4 5506, 33974, 74113, 19817, 96829, 81852 #### [facility] [address] [place] [address], [place] MCHC (RBC) [Mass/Vol] 31.5 g/dL Low 32.0-35.[address] [facility] Comment on above: Performed By: #### 4 5506, 33202, 95494, 00527, 13974, 84529 #### [facility] [address] MCV (RBC) [Entitic vol] 92.1 fL Normal 82.0-98.[address] [facility] Comment on above: Performed By: #### 4 5506, 88540, 60894, 97827, 59068, 92796 #### [facility] [address] [place] [address], [facility] Monocytes (Bld) [#/Vol] 0.6 10*3/uL Normal 0.1-1.[address] [facility] Comment on above: Performed By: #### 4 5506, 60837, 93499, 14343, 91202, 84570 #### [facility] [address] [place] [address], [facility] MONOS 8.6 % Normal 5.0-12.[address] [facility] Comment on above: Performed By: #### 4 5506, 02244, 95097, 41004, 32534, 77929 #### [facility] [address] [place] [address], [facility] Neutrophils/100 WBC (Bld) 74.7 % High 40.0-72.[address] [facility] Comment on above: Performed By: #### 4 5506, 19241, 39437, 82486, 04543, 33354 #### [facility] [address] [place] [address], [facility] Nucleated RBC/100 WBC (Bld) [Ratio] 0 % Normal 0-[address] [facility] Comment on above: Performed By: #### 4 5506, 35775, 38890, 10474, 09219, 32096 #### [facility] [address] [place] [address], [facility] PLAT CNT 290 10*3/uL Normal 150-[address] [facility] Comment on above: Performed By: #### 4 5506, 25032, 33697, 59559, 71515, 70139 #### [facility] [address] [place] [address], [facility] RBC (Bld) [#/Vol] 4.03 10*6/uL Low 4.20-5.[address] [facility] Comment on above: Performed By: #### 4 5506, 51369, 66524, 77799, 45912, 25835 #### [facility] [address] [place] [address], [facility] WBC (Bld) [#/Vol] 6.96 10*3/uL Normal 4.00-10.[address] [facility] Comment on above: Performed By: #### 4 5506, 54879, 04627, 45676, 59768, 90566 #### [facility] [address] COMP METABOLIC PANELon 04-19 Albumin [Mass/Vol] 4.3 g/dL Normal 3.5-5.[address] [facility] Comment on above: Performed By: #### 4 5506, 77883, 65305, 75247, 15320, 66110 #### [facility] [address] [place] [address], [facility] ALKALINE PHOSPH 137 IU/L High 34-[address] [facility] Comment on above: Performed By: #### 4 5506, 90895, 81217, 74791, 38145, 48701 #### [facility] [address] [place] [address], [facility] ALT [Catalytic activity/Vol] 17 U/L Normal 7-[address] [facility] Comment on above: Performed By: #### 4 5506, 30447, 07201, 11954, 41934, 73878 #### [facility] [address] [place] [address], [facility] AST [Catalytic activity/Vol] 16 U/L Normal 13-[address] [facility] Comment on above: Performed By: #### 4 5506, 03804, 12900, 60051, 96767, 71203 #### [facility] [address] [place] [address], [place] Bilirubin [Mass/Vol] 0.4 mg/dL Normal 0.3-1.[address] [facility] Comment on above: Performed By: #### 4 5506, 42484, 99995, 25843, 95328, 45543 #### [facility] [address] [place] [address], [place] Calcium [Mass/Vol] 10.5 mg/dL High 8.6-10.[address] [facility] Comment on above: Performed By: #### 4 5506, 60914, 73794, 72801, 76573, 20705 #### [facility] [address] [place] [address], [place] Chloride [Moles/Vol] 99 mmol/L Normal 98-[address] [facility] Comment on above: Performed By: #### 4 5506, 56771, 12585, 59420, 58680, 24604 #### [facility] [address] [place] [address], [place] CO2 [Moles/Vol] 27 mmol/L Normal 21-[address] [facility] Comment on above: Performed By: #### 4 5506, 23439, 50527, 71780, 62889, 14111 #### [facility] [address] [place] [address], [place] Creatinine [Mass/Vol] 1.04 mg/dL Normal 0.70-1.[address] [facility] Comment on above: Performed By: #### 4 5506, 20458, 13265, 94367, 05836, 39765 #### [facility] [address] [place] [address], [place] GFR/1.73 sq M.predicted among blacks MDRD (S/P/Bld) [Vol rate/Area] mL/min/{1.73_m2} Normal >[address] [facility] Comment on above: Performed By: #### 4 5506, 67497, 15585, 68630, 06512, 72674 #### [facility] [address] [place] [address], [place] GFR/1.73 sq M.predicted among non-blacks MDRD (S/P/Bld) [Vol rate/Area] mL/min/{1.73_m2} Normal >[address] [facility] Comment on above: Performed By: #### 4 5506, 12419, 04054, 03191, 79660, 44720 #### [facility] [address] [place] [address], [place] Glucose [Mass/Vol] 139 mg/dL High 70-[address] [facility] Comment on above: Performed By: #### 4 5506, 00891, 55482, 38700, 87406, 95985 #### [facility] [address] [place] [address], [place] Potassium [Moles/Vol] 5.1 mmol/L Normal 3.5-5.[address] [facility] Comment on above: Performed By: #### 4 5506, 70616, 66643, 39728, 26592, 53184 #### [facility] [address] [place] [address], [place] Protein [Mass/Vol] 6.5 g/dL Normal 6.0-8.[address] [facility] Comment on above: Performed By: #### 4 5506, 73804, 46553, 35282, 32834, 58291 #### [facility] [address] [place] [address], [place] Sodium [Moles/Vol] 133 mmol/L Low 136-[address] [facility] Comment on above: Performed By: #### 4 5506, 52186, 77969, 03970, 10951, 84277 #### [facility] [address] [place] [address], [place] Urea nitrogen [Mass/Vol] 11 mg/dL Normal 7-[address] [facility] Comment on above: Performed By: #### 4 5506, 48420, 67094, 72004, 70482, 56534 #### [facility] [address] [place] [address], [facility] DIRECT BILIon 04-19-2021 Bilirubin.direct [Mass/Vol] 0.1 mg/dL Normal 0.0-0.[address] [facility] Comment on above: Performed By: #### 4 5506, 79025, 86950, 67164, 33498, 59604 #### [facility] [address] [place] [address], [facility] LIPID PROFILEon 04-19-2021 Cholesterol [Mass/Vol] 82 mg/dL Low 120-[address] [facility] Comment on above: Result Comment: CHOL ESTEROL REFERENCE RANGE: 20 YEARS AND OLDER CARDIOVASCULAR RISK Less than 200 mg/dl Low Risk 200 to 239 mg/dl Borderline Risk 240 mg/dl and greater High Risk Performed By: #### 4 5506, 20959, 17134, 00947, 91456, 66013 #### [facility] [address] [place] [address], [facility] Cholesterol in HDL [Mass/Vol] 38 mg/dL Normal 23-[address] [facility] Comment on above: Result Comment: Slig ht variation in normal range could be due to gender and/or age. HDL CHOLESTEROL REFERENCE RANGE: 20 years and older Cardiovascular Risk > or =60 mg/dL Desirable 40 TO 59 mg/dL Low Risk <40 mg/dL High Risk Performed By: #### 4 5506, 23325, 13015, 22141, 77879, 63457 #### [facility] [address] [place] [address], [place] Cholesterol in LDL [Mass/Vol] 25 mg/dL Normal 0-[address] [facility] Comment on above: Result Comment: LDL IS A CALCULATION LDL IS ONLY VALID IF THE TRIG IS LESS THAN 400. Performed By: #### 4 5506, 81264, 61439, 42924, 33579, 75580 #### [facility] [address] [place] [address], [facility] Cholesterol.total/Chol esterol in HDL [Mass ratio] 2.2 {ratio} Normal .0-4.[address] [facility] Comment on above: Performed By: #### 4 5506, 09629, 84036, 45990, 05355, 55822 #### [facility] [address] [place] [address], [facility] NON-HDL CHOLESTEROL 44 mg/dL Normal [facility] Comment on above: Performed By: #### 4 5506, 58011, 30192, 60667, 80866, 83927 #### [facility] [address] Triglyceride [Mass/Vol] 93 mg/dL Normal 40-[address] [facility] Comment on above: Result Comment: TRIG LYCERIDE REFERENCE RANGE: 20 YEARS AND OLDER CARDIOVASCULAR RISK LESS THAN 150 mg/dl LOW RISK 150 TO 199 mg/dl BORDERLINE RISK 200 mg/dl AND GREATER HIGH RISK Performed By: #### 4 5506, 21756, 05337, 65332, 48887, 00564 #### [facility] [address] [place] [address], [facility] VLDL CHOL 19 mg/dL Normal 0-[address] [facility] Comment on above: Performed By: #### 4 5506, 14921, 59326, 03854, 63176, 35388 #### [facility] [address] [place] [address], [facility] MAGNESIUM BLOODon 04-19-2021 Magnesium [Mass/Vol] 1.8 mg/dL Low 1.9-2.[address] [facility] Comment on above: Performed By: #### 4 5506, 44551, 06653, 04170, 90686, 46923 #### [facility] [address] [place] [address], [facility] PHOSPHORUS BLOODon Phosphate [Mass/Vol] 3.0 mg/dL Normal 2.5-5.[address] [facility] Comment on above: Performed By: #### 4 5506, 51783, 17145, 72548, 15064, 25133 #### [facility] [address] PROSPERAon 04-19-2021 PROSPERA KIT Results to be mailed directly to physician's office by reference lab. Normal [facility] Comment on above: Result Comment: Test performed by [id number] [place] [address] No result expected. For billing and tracking purposes only. Specimen collected for transplant patient and sent to [facility] per Dr instructions. No charge. Performed By: #### 4 5506, 59436, 09317, 77622, 49647, 70851 #### [facility] [address] [facility] RESULT Results to be mailed directly to physician's office by reference lab. Normal [facility] Comment on above: Performed By: #### 4 5506, 51177, 94630, 02275, 88533, 03678 #### [facility] [address] TACROLIMUSon 04-19-2021 Tacrolimus (Bld) [Mass/Vol] 7.7 ng/mL Normal 5.0-20.[address] [facility] Comment on above: Result Comment: The [employer] Tacrolimus assay is a delayed one-step immunoassay for the quantitative determination of tacrolimus in human whole blood using the chemiluminescent microparticle immunoassay (CMIA) technology with flexible assay protocols, referred to as Chemiflex. Performed By: #### 4 5506, 91505, 48302, 22684, 03640, 99010 #### [facility] [address] URIC ACID BLOODon 04-19-2021 Urate [Mass/Vol] 7.9 mg/dL High 4.4-7.[address] [facility] Comment on above: Performed By: #### 4 5506, 93582, 41454, 97139, 12442, 36780 #### [facility] [address] [place] [address], [facility] CBC W/DIFFon 04-11-2021 ABS IMM GRANS 0.0 10*3/uL Normal 0.0-0.[address] [facility] Comment on above: Performed By: #### 4 5506, 61034, 67841, 42231, 18175, 23041 #### [facility] [address] [place] [address], [facility] ABS NEUTROPHILS 4.5 10*3/uL Normal 1.6-7.[address] [facility] Comment on above: Performed By: #### 4 5506, 33320, 50776, 24739, 83711, 83239 #### [facility] [address] [place] [address], [facility] Basophils (Bld) [#/Vol] 0.0 10*3/uL Normal 0.0-0.[address] [facility] Comment on above: Performed By: #### 4 5506, 40111, 95859, 82758, 54833, 65583 #### [facility] [address] [place] [address], [facility] Basophils/100 WBC (Bld) 0.5 % Normal 0.0-1.[address] [facility] Comment on above: Performed By: #### 4 5506, 41752, 00618, 29719, 84919, 09955 #### [facility] [address] [place] [address], [facility] Eosinophils (Bld) [#/Vol] 0.2 10*3/uL Normal 0.0-0.[address] [facility] Comment on above: Performed By: #### 4 5506, 67204, 21552, 81842, 52978, 15353 #### [facility] [address] [place] [address], [facility] Eosinophils/100 WBC (Bld) 3.1 % Normal 0.0-6.[address] [facility] Comment on above: Performed By: #### 4 5506, 12422, 57966, 36931, 09527, 91207 #### [facility] [address] [facility] [address] Erythrocyte distribution width (RBC) [Ratio] 13.4 % Normal 11.5-15.[address] [facility] Comment on above: Performed By: #### 4 5506, 25983, 92207, 97306, 52386, 46569 #### [facility] [address] [facility] Hematocrit (Bld) [Volume fraction] 35.5 % Low 39.0-50.[address] [facility] Comment on above: Performed By: #### 4 5506, 07601, 01020, 17859, 85170, 98631 #### [facility] [address] Hemoglobin (Bld) [Mass/Vol] 11.7 g/dL Low 13.0-17.[address] [facility] Comment on above: Performed By: #### 4 5506, 56864, 38243, 97078, 52622, 44296 #### [facility] [address] IMMATURE GRANS 0.6 % Normal 0.0-1.[address] [facility] Comment on above: Performed By: #### 4 5506, 55613, 32401, 74617, 26013, 74739 #### [facility] [address] [facility] Lymphocytes (Bld) [#/Vol] 0.8 10*3/uL Low 1.2-4.[address] [facility] Comment on above: Performed By: #### 4 5506, 47661, 27446, 05489, 28851, 14055 #### [facility] [address] Lymphocytes/100 WBC (Bld) 12.9 % Low 20.0-45.[address] [facility] Comment on above: Performed By: #### 4 5506, 80458, 32590, 38238, 44836, 60270 #### [facility] [address] [place] [address], [facility] MCH (RBC) [Entitic mass] 29.2 pg Normal 27.0-33.[address] [facility] Comment on above: Performed By: #### 4 5506, 14303, 61301, 50338, 26611, 72927 #### [facility] [address] MCHC (RBC) [Mass/Vol] 33.0 g/dL Normal 32.0-35.[address] [facility] Comment on above: Performed By: #### 4 5506, 64204, 95101, 97289, 33190, 62307 #### [facility] [address] MCV (RBC) [Entitic vol] 88.5 fL Normal 82.0-98.[address] [facility] Comment on above: Performed By: #### 4 5506, 68651, 73222, 59176, 90090, 24543 #### [facility] [address] [place] [address], [facility] Monocytes (Bld) [#/Vol] 0.6 10*3/uL Normal 0.1-1.[address] [facility] Comment on above: Performed By: #### 4 5506, 16275, 46048, 55264, 74434, 55348 #### [facility] [address] [place] [address], [facility] MONOS 10.3 % Normal 5.0-12.[address] [facility] Comment on above: Performed By: #### 4 5506, 02878, 73613, 66655, 09876, 69058 #### [facility] [address] [place] [address], [facility] Neutrophils/100 WBC (Bld) 72.6 % High 40.0-72.[address] [facility] Comment on above: Performed By: #### 4 5506, 48463, 32585, 71489, 16334, 56270 #### [facility] [address] [place] [address], [facility] Nucleated RBC/100 WBC (Bld) [Ratio] 0 % Normal 0-[address] [facility] Comment on above: Performed By: #### 4 5506, 17153, 42453, 86833, 58906, 76685 #### [facility] [address] [place] [address], [facility] PLAT CNT 272 10*3/uL Normal 150-[address] [facility] Comment on above: Performed By: #### 4 5506, 39290, 31723, 52823, 62871, 49245 #### [facility] [address] [place] [address], [facility] RBC (Bld) [#/Vol] 4.01 10*6/uL Low 4.20-5.[address] [facility] Comment on above: Performed By: #### 4 5506, 04776, 11192, 38988, 01224, 01126 #### [facility] [address] [place] [address], [facility] WBC (Bld) [#/Vol] 6.22 10*3/uL Normal 4.00-10.[address] [facility] Comment on above: Performed By: #### 4 5506, 41064, 64842, 76983, 96489, 93363 #### [facility] [address] [place] [address], [facility] COMP METABOLIC PANELon 04-11 Albumin [Mass/Vol] 4.3 g/dL Normal 3.5-5.[address] [facility] Comment on above: Performed By: #### 4 5506, 66407, 80373, 32175, 86177, 04338 #### [facility] [address] [place] [address], [facility] ALKALINE PHOSPH 115 IU/L High 34-[address] [facility] Comment on above: Performed By: #### 4 5506, 34451, 51313, 27282, 59919, 29548 #### [facility] [address] [place] [address], [facility] ALT [Catalytic activity/Vol] 16 U/L Normal 7-[address] [facility] Comment on above: Performed By: #### 4 5506, 06356, 64186, 14835, 95723, 67988 #### [facility] [address] [place] [address], [facility] AST [Catalytic activity/Vol] 15 U/L Normal 13-[address] [facility] Comment on above: Performed By: #### 4 5506, 77601, 92667, 25704, 90476, 14588 #### [facility] [address] [place] [address], [facility] Bilirubin [Mass/Vol] 0.6 mg/dL Normal 0.3-1.[address] [facility] Comment on above: Performed By: #### 4 5506, 64618, 39253, 22639, 03186, 17656 #### [facility] [address] [place] [address], [facility] Calcium [Mass/Vol] 10.3 mg/dL Normal 8.6-10.[address] [facility] Comment on above: Performed By: #### 4 5506, 77941, 35513, 23206, 00517, 35712 #### [facility] [address] [place] [address], [facility] Chloride [Moles/Vol] 97 mmol/L Low 98-[address] [facility] Comment on above: Performed By: #### 4 5506, 40411, 49447, 60404, 31922, 72543 #### [facility] [address] [place] [address], [place] CO2 [Moles/Vol] 26 mmol/L Normal 21-[address] [facility] Comment on above: Performed By: #### 4 5506, 94750, 29545, 06558, 08921, 08843 #### [facility] [address] [place] [address], [place] Creatinine [Mass/Vol] 0.93 mg/dL Normal 0.70-1.[address] [facility] Comment on above: Performed By: #### 4 5506, 35154, 45988, 94090, 18449, 79784 #### [facility] [address] [place] [address], [place] GFR/1.73 sq M.predicted among blacks MDRD (S/P/Bld) [Vol rate/Area] mL/min/{1.73_m2} Normal >[address] [facility] Comment on above: Performed By: #### 4 5506, 65041, 80151, 12215, 20924, 89752 #### [facility] [address] [place] [address], [place] GFR/1.73 sq M.predicted among non-blacks MDRD (S/P/Bld) [Vol rate/Area] mL/min/{1.73_m2} Normal >[address] [facility] Comment on above: Performed By: #### 4 5506, 53095, 85223, 22184, 51436, 79139 #### [facility] [address] [place] [address], [place] Glucose [Mass/Vol] 136 mg/dL High 70-[address] [facility] Comment on above: Performed By: #### 4 5506, 04528, 45046, 09019, 12114, 61498 #### [facility] [address] [place] [address], [place] Potassium [Moles/Vol] 5.2 mmol/L High 3.5-5.[address] [facility] Comment on above: Performed By: #### 4 5506, 13902, 79318, 45175, 15685, 87383 #### [facility] [address] Protein [Mass/Vol] 6.7 g/dL Normal 6.0-8.[address] [facility] Comment on above: Performed By: #### 4 5506, 70194, 29619, 08001, 18927, 47148 #### [facility] [address] [place] [address], [facility] Sodium [Moles/Vol] 129 mmol/L Low 136-[address] [facility] Comment on above: Performed By: #### 4 5506, 68200, 32737, 95172, 18954, 44092 #### [facility] [address] Urea nitrogen [Mass/Vol] 10 mg/dL Normal 7-[address] [facility] Comment on above: Performed By: #### 4 5506, 25051, 10262, 45869, 64140, 52287 #### [facility] [address] [place] [address], [facility] DIRECT BILIon 04-11-2021 Bilirubin.direct [Mass/Vol] 0.2 mg/dL Normal 0.0-0.[address] [facility] Comment on above: Performed By: #### 4 5506, 61036, 38332, 81322, 58417, 07506 #### [facility] [address] [place] [address], [facility] LIPID PROFILEon 04-11-2021 Cholesterol [Mass/Vol] 84 mg/dL Low 120-[address] [facility] Comment on above: Result Comment: CHOL ESTEROL REFERENCE RANGE: 20 YEARS AND OLDER CARDIOVASCULAR RISK Less than 200 mg/dl Low Risk 200 to 239 mg/dl Borderline Risk 240 mg/dl and greater High Risk Performed By: #### 4 5506, 10024, 29113, 98884, 44543, 58306 #### [facility] [address] [place] [address], [place] Cholesterol in HDL [Mass/Vol] 41 mg/dL Normal 23-[address] [facility] Comment on above: Result Comment: Slig ht variation in normal range could be due to gender and/or age. HDL CHOLESTEROL REFERENCE RANGE: 20 years and older Cardiovascular Risk > or =60 mg/dL Desirable 40 TO 59 mg/dL Low Risk <40 mg/dL High Risk Performed By: #### 4 5506, 04258, 37119, 55150, 52340, 39921 #### [facility] [address] [place] [address], [place] Cholesterol in LDL [Mass/Vol] 34 mg/dL Normal 0-[address] [facility] Comment on above: Result Comment: LDL IS A CALCULATION LDL IS ONLY VALID IF THE TRIG IS LESS THAN 400. Performed By: #### 4 5506, 45823, 96468, 18681, 10960, 33164 #### [facility] [address] [place] [address], [place] Cholesterol.total/Chol esterol in HDL [Mass ratio] 2.0 {ratio} Normal .0-4.[address] [facility] Comment on above: Performed By: #### 4 5506, 53029, 02524, 58202, 18377, 72884 #### [facility] [address] [place] [address], [place] NON-HDL CHOLESTEROL 43 mg/dL Normal [facility] Comment on above: Performed By: #### 4 5506, 91945, 52080, 11553, 93322, 83762 #### [facility] [address] [place] [address], [place] Triglyceride [Mass/Vol] 47 mg/dL Normal 40-[address] [facility] Comment on above: Result Comment: TRIG LYCERIDE REFERENCE RANGE: 20 YEARS AND OLDER CARDIOVASCULAR RISK LESS THAN 150 mg/dl LOW RISK 150 TO 199 mg/dl BORDERLINE RISK 200 mg/dl AND GREATER HIGH RISK Performed By: #### 4 5506, 07398, 34919, 06828, 19458, 91043 #### [facility] [address] [place] [address], [facility] VLDL CHOL 9 mg/dL Normal 0-[address] [facility] Comment on above: Performed By: #### 4 5506, 39873, 12930, 94238, 49197, 93212 #### [facility] [address] MAGNESIUM BLOODon 04-11-2021 Magnesium [Mass/Vol] 1.3 mg/dL Low 1.9-2.[address] [facility] Comment on above: Performed By: #### 4 5506, 83627, 43513, 33898, 95824, 13101 #### [facility] [address] [place] [address], [facility] PHOSPHORUS BLOODon Phosphate [Mass/Vol] 2.6 mg/dL Normal 2.5-5.[address] [facility] Comment on above: Performed By: #### 4 5506, 03449, 22808, 24621, 72629, 03226 #### [facility] [address] TACROLIMUSon 04-11-2021 Tacrolimus (Bld) [Mass/Vol] 8.3 ng/mL Normal 5.0-20.[address] [facility] Comment on above: Result Comment: The [employer] Tacrolimus assay is a delayed one-step immunoassay for the quantitative determination of tacrolimus in human whole blood using the chemiluminescent microparticle immunoassay (CMIA) technology with flexible assay protocols, referred to as Chemiflex. Performed By: #### 4 5506, 29353, 60484, 63177, 98376, 99471 #### [facility] [address] URIC ACID BLOODon 04-11-2021 Urate [Mass/Vol] 8.4 mg/dL High 4.4-7.[address] [facility] Comment on above: Performed By: #### 4 5506, 47315, 09424, 50810, 62055, 94958 #### [facility] [address] [facility] BK VIRUS QUANTITATION FOR PL ASMAon 02-16-2021 BKV Plasma Quantitation by PCR Not detected Normal [facility] Comment on above: Result Comment: Meth od: BK virus was measured by quantitative polymerase chain reaction using a fluorescent hydrolysis probe targeting the polyomavirus BK FIELD CROP I FARMWORKER-1 gene. The lower limit of quantitation of the assay is 500 copies of BK genome per milliliter of plasma or urine, and any detectable BK DNA below that level is reported as: Detected, <500 copies/ml. Serial BK virus measurement can be used to monitor disease activity. (Reference: Katina hernandez. J CLIN MICRO 2004; 42:3677-6038). This test was developed and its performance characteristics determined by the [facility]. It has not been approved by the [place] Food and Drug Administration. However, such approval is not required for clinical implementation, and test results have been shown to be clinically useful. This laboratory is CAP accredited and CLIA certified to perform high complexity testing. Performed By: #### 4 5506, 74195, 86925, 17482, 00621, 89629 #### [facility] [address] [facility]. [address] BKV Plasma Quantitation Log by PCR Not detected Normal [facility] Comment on above: Performed By: #### 4 5506, 37759, 89845, 55566, 20479, 65076 #### [facility] [address] [place] [address], [facility] CBC W/DIFFon 02-16-2021 ABS IMM GRANS 0.1 10*3/uL Normal 0.0-0.[address] [facility] Comment on above: Performed By: #### 4 5506, 48506, 72204, 96681, 36952, 81813 #### [facility] [address] [place] [address], [facility] ABS NEUTROPHILS 5.8 10*3/uL Normal 1.6-7.[address] [facility] Comment on above: Performed By: #### 4 5506, 85961, 91901, 09128, 19642, 60986 #### [facility] [address] [place] [address], [facility] Basophils (Bld) [#/Vol] 0.0 10*3/uL Normal 0.0-0.[address] [facility] Comment on above: Performed By: #### 4 5506, 05717, 85704, 85672, 68932, 17597 #### [facility] [address] [place] [address], [facility] Basophils/100 WBC (Bld) 0.4 % Normal 0.0-1.[address] [facility] Comment on above: Performed By: #### 4 5506, 07374, 04843, 26229, 53454, 44688 #### [facility] [address] [place] [address], [facility] Eosinophils (Bld) [#/Vol] 0.3 10*3/uL Normal 0.0-0.[address] [facility] Comment on above: Performed By: #### 4 5506, 22292, 06410, 24623, 88288, 68041 #### [facility] [address] [place] [address], [facility] Eosinophils/100 WBC (Bld) 3.5 % Normal 0.0-6.[address] [facility] Comment on above: Performed By: #### 4 5506, 38839, 87027, 56825, 60072, 03843 #### [facility] [address] [place] [address], [place] Erythrocyte distribution width (RBC) [Ratio] 13.6 % Normal 11.5-15.[address] [facility] Comment on above: Performed By: #### 4 5506, 00882, 99533, 22776, 51508, 88559 #### [facility] [address] Hematocrit (Bld) [Volume fraction] 34.1 % Low 39.0-50.[address] [facility] Comment on above: Performed By: #### 4 5506, 95869, 28012, 88343, 16449, 19876 #### [facility] [address] [facility]. [address] Hemoglobin (Bld) [Mass/Vol] 11.6 g/dL Low 13.0-17.[address] [facility] Comment on above: Performed By: #### 4 5506, 63838, 15671, 79725, 15131, 97987 #### [facility] [address] IMMATURE GRANS 0.8 % Normal 0.0-1.[address] [facility] Comment on above: Performed By: #### 4 5506, 32581, 06308, 56907, 70608, 97059 #### [facility] [address] Lymphocytes (Bld) [#/Vol] 0.7 10*3/uL Low 1.2-4.[address] [facility] Comment on above: Performed By: #### 4 5506, 46503, 53224, 31830, 49426, 57665 #### [facility] [address] Lymphocytes/100 WBC (Bld) 9.2 % Low 20.0-45.[address] [facility] Comment on above: Performed By: #### 4 5506, 45319, 25946, 83677, 35703, 96556 #### [facility] [address] MCH (RBC) [Entitic mass] 29.5 pg Normal 27.0-33.[address] [facility] Comment on above: Performed By: #### 4 5506, 01277, 79278, 00184, 25341, 90124 #### [facility] [address] [place] [address], [facility] MCHC (RBC) [Mass/Vol] 34.0 g/dL Normal 32.0-35.[address] [facility] Comment on above: Performed By: #### 4 5506, 69495, 35441, 62265, 70445, 12459 #### [facility] [address] [place] [address], [facility] MCV (RBC) [Entitic vol] 86.8 fL Normal 82.0-98.[address] [facility] Comment on above: Performed By: #### 4 5506, 18739, 26851, 16120, 74598, 31322 #### [facility] [address] [place] [address], [facility] Monocytes (Bld) [#/Vol] 0.8 10*3/uL Normal 0.1-1.[address] [facility] Comment on above: Performed By: #### 4 5506, 91167, 20235, 68727, 21286, 07922 #### [facility] [address] [facility]. [address] MONOS 10.3 % Normal 5.0-12.[address] [facility] Comment on above: Performed By: #### 4 5506, 69700, 31321, 01294, 06537, 60948 #### [facility] [address] Neutrophils/100 WBC (Bld) 75.8 % High 40.0-72.[address] [facility] Comment on above: Performed By: #### 4 5506, 16031, 48516, 07238, 71148, 42687 #### [facility] [address] [place] [address], [facility] Nucleated RBC/100 WBC (Bld) [Ratio] 0 % Normal 0-[address] [facility] Comment on above: Performed By: #### 4 5506, 29828, 50760, 95019, 19161, 44227 #### [facility] [address] [place] [address], [facility] PLAT CNT 256 10*3/uL Normal 150-[address] [facility] Comment on above: Performed By: #### 4 5506, 01687, 62006, 70642, 27717, 38671 #### [facility] [address] [place] [address], [facility] RBC (Bld) [#/Vol] 3.93 10*6/uL Low 4.20-5.[address] [facility] Comment on above: Performed By: #### 4 5506, 59209, 67390, 20283, 99031, 20667 #### [facility] [address] [place] [address], [facility] WBC (Bld) [#/Vol] 7.65 10*3/uL Normal 4.00-10.[address] [facility] Comment on above: Performed By: #### 4 5506, 29568, 35618, 02812, 77041, 50081 #### [facility] [address] COMP METABOLIC PANELon 02-16 Albumin [Mass/Vol] 4.6 g/dL Normal 3.5-5.[address] [facility] Comment on above: Performed By: #### 0 0121, 82458, 82023, 03901, 80751, 00968, 69507, 19450 #### [facility] [address] [facility]. [address] ALKALINE PHOSPH 136 IU/L High 34-[address] [facility] Comment on above: Performed By: #### 0 0121, 53620, 18926, 45388, 23121, 52648, 43830, 54730 #### [facility] [address] ALT [Catalytic activity/Vol] 22 U/L Normal 7-[address] [facility] Comment on above: Performed By: #### 0 0121, 14623, 49601, 96621, 68357, 09149, 03703, 79619 #### [facility] [address] [place] [address], [facility] AST [Catalytic activity/Vol] 18 U/L Normal 13-[address] [facility] Comment on above: Performed By: #### 0 0121, 73163, 64150, 51093, 66020, 99490, 00770, 36706 #### [facility] [address] [place] [address], [place] Bilirubin [Mass/Vol] 0.5 mg/dL Normal 0.3-1.[address] [facility] Comment on above: Performed By: #### 0 0121, 24553, 78438, 18709, 89668, 03019, 24448, 72140 #### [facility] [address] [place] [address], [place] Calcium [Mass/Vol] 10.5 mg/dL High 8.6-10.[address] [facility] Comment on above: Performed By: #### 0 0121, 64376, 10921, 31957, 70590, 88071, 19354, 07222 #### [facility] [address] [place] [address], [place] Chloride [Moles/Vol] 94 mmol/L Low 98-[address] [facility] Comment on above: Performed By: #### 0 0121, 25406, 67235, 05069, 96088, 70213, 92224, 20084 #### [facility] [address] [place] [address], [place] CO2 [Moles/Vol] 28 mmol/L Normal 21-[address] [facility] Comment on above: Performed By: #### 0 0121, 80471, 71694, 87509, 81710, 02967, 19146, 00664 #### [facility] [address] [place] [address], [facility] Creatinine [Mass/Vol] 0.93 mg/dL Normal 0.70-1.[address] [facility] Comment on above: Performed By: #### 0 0121, 18377, 22498, 32748, 97949, 19065, 05767, 38396 #### [facility] [address] [place] [address], [place] GFR/1.73 sq M.predicted among blacks MDRD (S/P/Bld) [Vol rate/Area] mL/min/{1.73_m2} Normal >[address] [facility] Comment on above: Performed By: #### 0 0121, 80585, 66395, 36224, 79903, 54808, 82099, 67696 #### [facility] [address] [place] [address], [facility] GFR/1.73 sq M.predicted among non-blacks MDRD (S/P/Bld) [Vol rate/Area] mL/min/{1.73_m2} Normal >[address] [facility] Comment on above: Performed By: #### 0 0121, 46487, 91035, 19102, 64432, 47982, 40275, 93568 #### [facility] [address] [place] [address], [place] Glucose [Mass/Vol] 147 mg/dL High 70-[address] [facility] Comment on above: Performed By: #### 0 0121, 88467, 07852, 12349, 62436, 22949, 35025, 86113 #### [facility] [address] [place] [address], [place] Potassium [Moles/Vol] 4.6 mmol/L Normal 3.5-5.[address] [facility] Comment on above: Performed By: #### 0 0121, 52964, 55115, 28848, 77167, 04971, 25604, 63897 #### [facility] [address] [place] [address], [facility] Protein [Mass/Vol] 7.2 g/dL Normal 6.0-8.[address] [facility] Comment on above: Performed By: #### 0 0121, 80595, 31503, 96416, 90758, 06293, 70205, 41034 #### [facility] [address] [place] [address], [facility] Sodium [Moles/Vol] 129 mmol/L Low 136-[address] [facility] Comment on above: Performed By: #### 0 0121, 75866, 60162, 66101, 03915, 75099, 64272, 01140 #### [facility] [place] [address], [facility] Urea nitrogen [Mass/Vol] 15 mg/dL Normal 7-[address] [facility] Comment on above: Performed By: #### 0 0121, 75829, 17434, 38462, 16620, 65871, 45516, 71093 #### [facility] [address] [place] [address], [facility] DIRECT BILIon 02-16-2021 Bilirubin.direct [Mass/Vol] 0.2 mg/dL Normal 0.0-0.[address] [facility] Comment on above: Performed By: #### 4 5506, 74371, 60620, 25290, 74061, 66080 #### [facility] [address] [place] [address], [facility] HEMOGLOBIN A1Con 02-16-2021 Glucose [Moles/Vol] 154 mmol/L Normal [facility] Comment on above: Performed By: #### 4 5506, 66448, 19473, 46887, 36914, 17799 #### [facility] [address] [place] [address], [facility] HbA1c (Bld) [Mass fraction] 7.0 % High 4.0-6.[address] [facility] Comment on above: Performed By: #### 4 5506, 93339, 50280, 12351, 09909, 75671 #### [facility] [address] [place] [address], [facility] LIPID PROFILEon 02-16-2021 Cholesterol [Mass/Vol] 78 mg/dL Low 120-[address] [facility] Comment on above: Result Comment: CHOL ESTEROL REFERENCE RANGE: 20 YEARS AND OLDER CARDIOVASCULAR RISK Less than 200 mg/dl Low Risk 200 to 239 mg/dl Borderline Risk 240 mg/dl and greater High Risk Performed By: #### 0 0121, 08684, 77092, 74028, 78750, 67906, 44247, 19678 #### [facility] [address] [place] [address], [facility] Cholesterol in HDL [Mass/Vol] 41 mg/dL Normal 23-[address] [facility] Comment on above: Result Comment: Slig ht variation in normal range could be due to gender and/or age. HDL CHOLESTEROL REFERENCE RANGE: 20 years and older Cardiovascular Risk > or =60 mg/dL Desirable 40 TO 59 mg/dL Low Risk <40 mg/dL High Risk Performed By: #### 0 0121, 18560, 32857, 50202, 18897, 17938, 17842, 62293 #### [facility] [address] [place] [address], [facility] Cholesterol in LDL [Mass/Vol] 28 mg/dL Normal 0-[address] [facility] Comment on above: Result Comment: LDL IS A CALCULATION LDL IS ONLY VALID IF THE TRIG IS LESS THAN 400. Performed By: #### 0 0121, 94866, 40246, 39958, 83895, 58532, 01143, 16482 #### [facility] [address] [place] [address], [place] Cholesterol.total/Chol esterol in HDL [Mass ratio] 1.9 {ratio} Normal .0-4.[address] [facility] Comment on above: Performed By: #### 0 0121, 73010, 39132, 35474, 52485, 81906, 99735, 04992 #### [facility] [address] [place], [place] [address] [place] [address] NON-HDL CHOLESTEROL 37 mg/dL Normal [facility] Comment on above: Performed By: #### 0 0121, 40857, 03929, 87484, 53353, 18670, 66380, 93834 #### [facility] [address] [place] [address], [facility] Triglyceride [Mass/Vol] 44 mg/dL Normal 40-[address] [facility] Comment on above: Result Comment: TRIG LYCERIDE REFERENCE RANGE: 20 YEARS AND OLDER CARDIOVASCULAR RISK LESS THAN 150 mg/dl LOW RISK 150 TO 199 mg/dl BORDERLINE RISK 200 mg/dl AND GREATER HIGH RISK Performed By: #### 0 0121, 54120, 85733, 94198, 04571, 62837, 74280, 55868 #### [facility] [address] [place] [address], [facility] VLDL CHOL 9 mg/dL Normal 0-[address] [facility] Comment on above: Performed By: #### 0 0121, 10025, 54219, 39550, 14255, 92939, 70168, 22484 #### [facility] [address] [place] [address], [facility] MAGNESIUM BLOODon 02-16-2021 Magnesium [Mass/Vol] 1.5 mg/dL Low 1.9-2.[address] [facility] Comment on above: Performed By: #### 4 5506, 01232, 30400, 10843, 73457, 49242 #### [facility] [address] [place] [address], [facility] PHOSPHORUS BLOODon Phosphate [Mass/Vol] 2.4 mg/dL Low 2.5-5.[address] [facility] Comment on above: Performed By: #### 0 0121, 33133, 67007, 71747, 82023, 92621, 31597, 53715 #### [facility] [address] [place] [address], [facility] PROSPERAon 02-16-2021 PROSPERA KIT Results to be mailed directly to physician's office by reference lab. Normal [facility] Comment on above: Result Comment: Test performed by [id number] [place] [address] No result expected. For billing and tracking purposes only. Specimen collected for transplant patient and sent to requesting hospital per Dr instructions. No charge. Performed By: #### 4 5506, 39310, 53023, 26537, 24263, 12330 #### [facility] [address] RESULT Results to be mailed directly to physician's office by reference lab. Normal [facility] Comment on above: Performed By: #### 4 5506, 42531, 70850, 75701, 22140, 89833 #### [facility] [address] PTH INTACTon 02-16-2021 PTH INTACT 123 pg/mL High 12-88 [facility] Comment on above: Performed By: #### 4 5506, 27248, 49927, 02428, 05732, 76071 #### [facility] [address] [facility] [address] SINGLE ANTIGEN CLASS 1on METHOD Class I Single Antigen Normal [facility] Comment on above: Order Comment: [...] to frequency. Performed By: #### 4 5506, 93013, 56781, 86751, 87186, 93919 #### [facility] [address] SINGLE ANTIGEN CLASS 2on COMMENTS Normal [facility] Comment on above: Order Comment: Some [...] Antigen Microbeads Performed By: #### 4 5506, 55350, 79760, 28998, 79279, 77440 #### [facility] [address] Result Comment: No C lass I donor specific antibody identified Class I Antigen Microbeads METHOD Class II Single Antigen Normal [facility] Comment on above: Order Comment: [...] to frequency. Performed By: #### 4 5506, 61794, 78356, 92323, 13821, 50060 #### [facility] [address] [place] [address], [facility] SIGNED BY Normal [facility] Comment on above: Order Comment: Some [...] frequency. Result Comment: Jose A Lara, MS,CHT(IRINEO),MT(ASCP) [employer], Transplant Immunology Performed By: #### 4 5506, 86561, 06961, 08796, 65223, 45692 #### [facility] [address] [place] [address], [facility] TACROLIMUSon 02-16-2021 Tacrolimus (Bld) [Mass/Vol] 7.0 ng/mL Normal 5.0-20.[address] [facility] Comment on above: Result Comment: The [employer] Tacrolimus assay is a delayed one-step immunoassay for the quantitative determination of tacrolimus in human whole blood using the chemiluminescent microparticle immunoassay (CMIA) technology with flexible assay protocols, referred to as Chemiflex. Performed By: #### 4 5506, 60357, 84584, 16530, 74220, 51507 #### [facility] [address] [place] [address], [facility] TESTOSTERONE, FREE+SHBG+TOTA L ILon 02-16-[address] [facility] Comment on above: Result Comment: Test Performed by [employer] [address] [place] [address] - Released 02/16/2021 18:49 SEX HORM BIND GLOB 52 nmol/L Normal 11-[address] [facility] Testosterone [Mass/Vol] 399 ng/dL Normal 220-[address] [facility] TESTOSTERONE, FREE 60.0 pg/mL Normal 47-[address] [facility] Comment on above: Result Comment: The concentration of free testosterone is derived from a mathematical expression based on the constant for the binding of testosterone to albumin and/or sex hormone binding globulin. URIC ACID BLOODon 02-16-2021 Urate [Mass/Vol] 8.0 mg/dL High 4.4-7.[address] [facility] Comment on above: Performed By: #### 0 0121, 47266, 63996, 43630, 71387, 97639, 71796, 94199 #### [facility] [address] [place] [address], [facility] VITAMIN D 25-HYDROXYon 02-16 VITAMIN D 25-OH 35.1 ng/mL Normal 30.0-80.[address] [facility] Comment on above: Result Comment: >80. 0 Toxicity possible Performed By: #### 4 5506, 72738, 54551, 72065, 12334, 57990 #### [facility] [address] Vital Signs Date Time Vital Sign Value Performing Clinician Facility 02-16-2024 08:19040 Body height 167.6 cm Jericho Mccarthy MD Work Phone: [facility] 02-16-2024 08:19-0400 Body mass index (BMI) [Ratio] 24.37 kg/m2 Jericho Mccarthy MD Work Phone: [facility] 02-16-2024 08:19-0400 Body temperature 97.5 [degF] Jericho Mccarthy MD Work Phone: [facility] 02-16-2024 08:19-0400 Body weight 68.49 kg Jericho Mccarthy MD Work Phone: [facility] 02-16-2024 08:19-0400 Diastolic blood pressure 60 mm[Hg] Jericho Mccarthy MD Work Phone: [facility] 02-16-2024 08:19-0400 Heart rate 57 /min Jericho Mccarthy MD Work Phone: [facility] 02-16-2024 08:19-0400 Respiratory rate 18 /min Jericho Mccarthy MD Work Phone: [facility] 02-16-2024 08:19-0400 SaO2% (BldA) [Mass fraction] 98 % Jericho Mccarthy MD Work Phone: [facility] 02-16-2024 08:19-0400 Systolic blood pressure 120 mm[Hg] Jericho Mccarthy MD Work Phone: [facility] 03-05-2022 09:30-0400 Diastolic blood pressure 74 mm[Hg] MD Jericho Mccarthy Work Phone: [facility] 03-05-2022 09:30-0400 Heart rate 58 /min MD Jericho Mccarthy Work Phone: [facility] 03-05-2022 09:30-0400 Respiratory rate 18 /min MD Jericho Mccarthy Work Phone: [facility] 03-05-2022 09:30-0400 SaO2% (BldA) [Mass fraction] 99 % MD Jericho Mccarthy Work Phone: [facility] 03-05-2022 09:30-0400 Systolic blood pressure 133 mm[Hg] MD Jericho Mccarthy Work Phone: [facility] 03-05-2022 07:01-0400 Body height 167.64 cm MD Jericho Mccarthy Work Phone: [facility] 03-05-2022 07:01-0400 Body temperature 97.9 [degF] MD Jericho Mccarthy Work Phone: [facility] 03-05-2022 07:01-0400 Body weight 74.84 kg MD Jericho Mccarthy Work Phone: [facility] 01-21-2022 10:30-0400 Body height 167.64 cm Tj Wells Other [facility] Other 01-21-2022 10:30-0400 Body mass index (BMI) [Ratio] 26.47 kg/m2 Tj Wells Other [facility] Other 01-21-2022 10:30-0400 Body weight 74.39 kg Tj Wells Other [facility] Other 01-21-2022 10:30-0400 Diastolic blood pressure 71 mm[Hg] Tj Wells Other [facility] Other 01-21-2022 10:30-0400 Systolic blood pressure 148 mm[Hg] Tj Wells Other [facility] Other Encounters Encounter Date Encounter Type Care Provider Facility Start: 12-02-2024 End: 12-02-[address] [facility] Start: 12-01-2024 End: 12-01-2024 [facility] Result Encounter Generic External Data Provider [facility] External [facility] Unsolicited Start: 12-01-2024 End: 12-01-2024 [facility] Result Encounter Generic External Data Provider [facility] External Department Unsolicited Start: 09-30-2024 End: 09-30-2024 [facility] Result Encounter Generic External Data Provider [facility] External Department Unsolicited Start: 09-30-2024 End: 09-30-2024 [facility] Result Encounter Generic External Data Provider [facility] External Department Unsolicited Start: 06-18-2024 End: 06-18-2024 ambulatory [facility] Start: 06-09-2024 End: 06-09-2024 [facility] Start: 06-04-2024 End: 06-04-2024 Clinisync Result [...] minutes Jericho Mccarthy MD Work Phone: [facility] Comment on above: Type 2 diabetes [...] Available Start: 02-11-2024 End: 02-11-2024 ambulatory [facility] Start: 02-06-2024 End: 02-06-2024 [facility] Result Encounter Generic External Data Provider [facility] External Department Unsolicited Start: 02-06-2024 End: 02-06-2024 [facility]inisync Result Encounter Generic External Data Provider [facility] External Department Unsolicited Start: 02-02-2024 End: 02-02-2024 Bamboo flowscristobal Gaines MD Work Phone: [facility] Start: 02-02-2024 End: 02-02-2024 Bamwendio flowscristobal Gaines MD Work Phone: [facility] [...] Not Available Start: 10-03-2022 End: 10-04-2022 ambulatory DOCTOR MISC Facility:[facility] Start: 08-30-2022 End: 08-31-2022 ambulatory DOCTOR MISC Facility:[facility] Start: 08-01-2022 End: 08-02-2022 ambulatory DOCTOR MISC Facility:[facility] Start: 07-04-2022 End: 07-05-2022 ambulatory DOCTOR MISC Facility:[facility] Start: 05-23-2022 End: 05-24-2022 ambulatory DOCTOR MISC Facility:[facility] Start: 04-30-2022 End: 05-01-2022 ambulatory DOCTOR MISC Facility:[facility] Start: 04-03-2022 End: 04-04-2022 ambulatory DOCTOR MISC Facility:[facility] Start: 03-08-2022 End: 03-09-[address] SHAINA SUBRAMANIAN Facility:[facility] Start: 03-05-2022 End: 03-05-2022 ambulatory Tj Wells Facility:[facility] Start: 03-05-2022 End: 03-05-2022 Admission to same day surgery center MD Jericho Mccarthy Work Phone: [facility] Start: 03-05-2022 End: 03-05-2022 ambulatory MD Jericho Mccarthy Work Phone: [facility] Work Phone: Start: 03-01-2022 End: 03-01-2022 ambulatory Tj Wells Facility:[facility] Start: 03-01-2022 End: 03-01-2022 ambulatory MD Jericho Mccarthy Work Phone: [facility] Work Phone: Start: 03-01-2022 End: 10-21-2022 Patient encounter procedure MD Jericho Mccarthy Work Phone: [facility] Start: 02-01-2022 End: 02-02-[address] DOCTOR MCCABE Facility:[facility] Start: 01-21-2022 End: 01-21-2022 ambulatory Tj Wells Other [facility] [employer] Other Start: 01-21-2022 Office outpatient ne w 45 minutes Tj Wells [facility] Start: 01-04-2022 End: 01-05-[address] SHAINA SUBRAMANIAN Facility:[facility] Start: 11-30-2021 End: 12-01-[address] DOCTOR MCCABE Facility:[facility] Start: 11-14-2021 End: 11-14-[address] JERICHO MCCARTHY Facility:[facility] Procedures Date Procedure Procedure Detail Performing Clinician Start: 12-01-2024 ALL CBC WITH AUTO DIFF Generic External Data Provider Start: 09-30-2024 ALL CBC WITH AUTO DIFF [...] DERM [address] [place] [address] Rajesh Gaines MD [address] [place] [address] [facility] Start: 01-10-2025 Influenza vaccination [facility] Start: 08-05-2024 Hemoglobin A1c measurement Diabetes: Hemoglobin A1C [facility] Start: 03-11-2024 End: 03-11-2024 Patient encounter procedure 03/11/2024 9:15 AM EDT Office Visit [facility] [address] [place] [address] Jericho Mccarthy MD [address] [place] [address] [facility] Start: 02-16-2024 End: 02-16-2024 Patient encounter procedure [facility] Comment on above: Arrived Start: 02-02-2024 End: 02-02-2024 Patient encounter procedure [facility] Comment on above: Arrived Start: 01-11-2024 Influenza vaccination Influenza Vacc ine (#1) [facility] Start: 10-07-2023 Hemoglobin A1c measurement Diabetes: Hemoglobin A1C [facility] Start: 03-05-2022 [facility] Start: 01-31-2017 Pneumococcal Vaccine : 65+ Years (2 of 2 - PCV) Pneumococcal Vaccine: 65+ Years (2 of 2 - PCV) [facility] Start: 1950 Medicare Annual Wellness (AWV) Medicare Annual Wellness (AWV) [facility] Start: 1950 Screening for malign ant neoplasm of colon [facility] Patient Education [facility] Work Phone: Immunizations Immunization Date Immunization Notes Care Provider German vargas 02-18-2023 Influenza, High-dose Seasonal, Quadrivalent, Preservative Free Generic Provider [facility] 02-18-2023 influenza virus vaccine, unspecified formulation Generic Provider [facility] 04-30-2021 COVID-19 mRNA Bivale nt Booster (Pfizer) MD Jericho Mccarthy Work Phone: [facility] 04-30-2021 Influenza, Seasonal, Quadrivalent, Adjuvanted Generic Provider [facility] 08-01-2020 COVID-19 mRNA, Comirnaty (Pfizer) MD Jericho Mccarthy Work Phone: [facility] 07-12-2020 COVID-19 mRNA, Comirnaty (Pfizer) MD Jericho Mccarthy Work Phone: [facility] 02-09-2019 influenza, injectabl e, quadrivalent, contains preservative Generic Provider [facility] 02-13-2017 influenza, seasonal, injectable Tj Wells Other [facility] Other 02-09-2017 influenza virus vaccine, unspecified formulation Generic Provider [facility] 06-27-2016 influenza, seasonal, injectable Tj Wells Other [facility] Other 02-01-2016 pneumococcal polysaccharide vaccine, 23 valent Tj Wells Other [facility] [employer] Other Payers Date Payer Category Payer Private Health Insurance [id number] 2022 Private Health Insurance [id number] 2022 Unknown [employer] [place] [facility] [id number] 2022-Present [id number] [place] [id number] 2022 Self-pay [id number] 2022 Unknown [id number] 2009 Medicare [id number] 1959 Medicare [id number] 1959 Private Health Insurance [id number] 2.16.840.1.501226.19 1951 Unknown [id number] 2.16.840.1.636897.3.579.2 .593 1951 Unknown [id number] 2.16.840.1.187765.3.579.2 .593 1951 Unknown [id number] 2.16.840.1.185754.3.579.2 .593 1951 Unknown [id number] 2.16.840.1.619133.3.579.2 .593 1951 Unknown [id number] 2.16.840.1.831954.3.579.2 .593 1951 Unknown [id number] 2.16.840.1.364171.3.579.2 .593 1951 Unknown [id number] 2.16.840.1.826704.3.579.2 .593 1951 Unknown [id number] 2.16.840.1.030575.3.579.2 .593 1951 Unknown [id number] 2.16.840.1.280336.3.579.2 .593 1951 Unknown [id number] 2.16.840.1.799946.3.579.2 .593 1951 Unknown [id number] 2.16.840.1.228872.3.579.2 .593 1951 Unknown [id number] 2.16.840.1.068130.3.579.2 .593 1951 Unknown [id number] 2.16.840.1.497710.3.579.2 .1259 1951 Unknown [id number] 2.16.840.1.630868.3.579.2 .1259 1951 Unknown [id number] 2.16.840.1.917523.3.579.2 .1259 1950 Unknown [id number] 2.16.840.1.700955.3.579.2 .1259 Unknown [id number] 2.16.840.1.091984.3.579.2 .531 Unknown [id number] 2.16.840.1.738250.3.579.2 .531 Social History Date Type Detail Facility Unknown if ever smoked [facility] Other Start: 02-02-2024 End: 02-16-2024 Sex Assigned At [facility] Other Start: 11-11-2019 End: 04-15-2023 Tobacco smoking status [facility] Ex-smoker (finding) [facility] Start: 1950 Sex Assigned At Male F [facility] Start: 05-12-1980 End: 05-12-1992 History of tobacco use Current smoker [facility] Start: 05-12-1980 End: 05-12-1992 History of tobacco use Cigarette Smoker [facility] Start: 04-15-2023 Tobacco use and exposure Smokeless tobacco non-user [facility] Start: 02-02-2024 End: 02-16-2024 History of Social function [facility] Start: 1950 Sex assigned at Not on file N [facility] Medical Equipment Procedure Code Equipment Code Equipment Original Text Equipment Identifier Dates Creation or revision of arteriovenous fistula GRAFT ARTEGRAFT 6MM X 40CM FDA Start: 01-14-2017 Creation or revision of arteriovenous fistula GRAFT ARTEGRAFT 6MM X 40CM FDA Start: 01-14-2017 Goals Date Patient Goal Desired Activity /State Clinical Notes 09-09-2009 to 12-02-2024 Jericho Mccarthy MD - 02/16/2024 8:49 AM EDAva Mccarthy MD - 02/16/2024 8:49 AM Donna Mccarthy MD - 02/16/2024 8:48 AM Donna Mccarthy MD - 02/16/2024 8:15 AM EDT Note Date & Type Note Facility 12-02-2024 Note Nephrology Transplan t Clinic Roger Kerr 1950 [id number] Patient : Roger Kerr; 73 y.o. 12/02/2024 Reason for Visit: History of renal transplant. HPI: Roger Kerr; 73 y.o. male with a history of end-stage renal disease status post donor renal transplant on 02/26/2020. Subjective: No concerns voiced today. He continues to urinate without issue. Denies SOB, cp, n/v Immunosuppression: Tacrolimus 0.5 mg p.o. twice daily Myfortic 720 mg (4 tabs x 180mg), PO, BID Objective: Constitutional: Appearance: NAD HENT: Head: Normocephalic and atraumatic. Eyes: Conjunctiva/sclera: Conjunctivae normal. Cardiovascular: Rate and Rhythm: Normal rate and regular rhythm. Pulses: Normal pulses. Heart sounds: Normal heart sounds. Pulmonary: Effort: Pulmonary effort is normal. Breath sounds: Normal breath sounds. Abdominal: General: Bowel sounds are normal. Palpations: Abdomen is soft. Musculoskeletal: General: Normal range of motion. Cervical back: Neck supple. Skin: General: Skin is warm and dry. Neurological: Mental Status: alert and oriented to person, place, and time. Psychiatric: Mood and Affect: Mood normal. Behavior: Behavior normal. Extremities: Mild BLE edema, states resolves when feet elevated ROS: + Immunosuppressed otherwise negative unless stated otherwise in HPI Impression: History of renal transplant Immunosuppression management Hypertension Hypomagnesia Plan: Patient with history of end stage renal disease, status post renal transplant, creatinine .85, with relatively stable graft function. Continue with Adequate hydration. Continue with monthly labs Immunosuppression - dose changes, if indicated, will be based on monthly laboratory testing result. HTN - blood pressure in clinic reviewed. Will ask patient to keep a log of blood pressures at home, contact [facility] transplant if blood pressure is persistently >140/90. Continue with current antihypertensive regimen Magnesium 800 mg tid Tac level not drawn, to have completed Follow up: 6 months Recent Labs I have reviewed the patient's most recent labs as listed below: Chemistry: CBC [facility]12/01/2024 Component 12/01/2024 [facility] HGB 11.6 Low Load older lab results [facility] HCT 35.9 Low Load older lab results [facility] MCV 90 Load older lab results [facility] MCH 29.1 Load older lab results [facility] MCHC 32.3 Load older lab results [facility] MPV 9.9 Load older lab results CHEM PROFILE [facility]12/01/2024 Component 12/01/2024 [facility] EGFR-AF GUINEAN >60 Load older lab results TB EGFR-NON AF GUINEAN >60 Load older lab results DIFFERENTIAL [facility]12/01/2024 Component 12/01/2024 NEUTROPHILS PERCENT AUTO 74.5 Load older lab results MONOCYTES PERCENT AUTO 8 Load older lab results [facility]H EO % 3.8 Load older lab results BASOPHILS PERCENT AUTO 0.5 Load older lab results Others [facility]12/01/2024 Component 12/01/2024 12/01/2024 12/01/2024 12/01/2024 12/01/2024 12/01/2024 TACROLIMUS ([id number]), BLOOD -- -- -- -- -- -- Load older lab results TESTOSTERONE -- -- -- -- -- -- Load older lab results FREE TESTOSTERONE(DIRECT) -- -- -- -- -- -- Load older lab results [facility] WBC 7.7 -- -- -- -- -- Load older lab results TB RBC 3.99 Low -- -- -- -- -- Load older lab results [facility] HGB 11.6 Low -- -- -- -- -- Load older lab results [facility] HCT 35.9 Low -- -- -- -- -- Load older lab results [facility] MCV 90 -- -- -- -- -- Load older lab results [facility] MCH 29.1 -- -- -- -- -- Load older lab results TB MCHC 32.3 -- -- -- -- -- Load older lab results [facility] RDW 14.1 -- -- -- -- -- Load older lab results [facility] PLT 221 -- -- -- -- -- Load older lab results [facility] MPV 9.9 -- -- -- -- -- Load older lab results NEUTROPHILS PERCENT AUTO 74.5 -- -- -- -- -- Load older lab results LYMPHOCYTES PERCENT AUTO 12.3 Low -- -- -- -- -- Load older lab results MONOCYTES PERCENT AUTO 8 -- -- -- -- -- Load older lab results [facility] EO % 3.8 -- -- -- -- -- Load older lab results BASOPHILS PERCENT AUTO 0.5 -- -- -- -- -- Load older lab results IMMATURE GRANULOCYTES PCT AUTO 0.9 High -- -- -- -- -- Load older lab results NEUTROPHILS ABSOLUTE AUTO 5.7 -- -- -- -- -- Load older lab results LYMPHOCYTES ABSOLUTE AUTO 0.9 Low -- -- -- -- -- Load older lab results MONOCYTES ABSOLUTE AUTO 0.6 -- -- -- -- -- Load older lab results [facility] EO # 0.3 -- -- -- -- -- Load older lab results BASOPHILS ABSOLUTE AUTO 0 -- -- -- -- -- Load older lab results IMMATURE GRANULOCYTES ABS AUTO 0.07 High -- -- -- -- -- Load older lab results SODIUM -- 140 -- -- -- -- Load older lab results POTASSIUM -- 4.2 -- -- -- -- Load older lab results CHLORIDE -- 103 -- -- -- -- Load older lab results CARBON DIOXIDE -- 27.4 -- -- -- -- Load older lab results ANION GAP -- 13.8 -- -- -- -- Load older lab results GLUCOSE -- 97 -- -- -- -- Load older lab results BLOOD UREA NITROGEN -- 17 -- -- -- -- Load older (more content not included)... [facility] 09-07-2024 Note [employer] Consultant called jasson huntley to reschedule appt on 11-11-24 Dr. Benitez will be out of the office. [employer] Consultant left detailed message. Appointment cancelled. [facility] 06-18-2024 Note Attestation signed by Ananda Pan MD at 06/22/2024 1:41 PM I personally saw and examined the patient on the same date of service as resident/fellow Baron Nguyen MD. I discussed the findings and therapeutic plan with the Baron Nguyen MD. I agree with the documentation, except for any edits/updates below. Ananda Pan MD Faculty, Division of Nephrology, Department of Medicine, [facility]. Nephrology Transplant [...] PROT 6.8 02 (more content not included)... [facility] 06-16-2024 Note After [employer] Secure Ch at message from Santana Villegas that he will see pt for FU, this coordinator left a voicemail message for the pt to contact the clinic ([facility]) for his RV time on 06/18/24. [facility] 06-09-2024 Note SUBJECTIVE Roger Kerr is [...] History: Diagnosis Date CHF (congestive heart failure) ([facility]/HCC) Chronic kidney disease Coronary artery disease Hypertension Pulmonary hypertension ([facility]/HCC) Past Surgical History: Procedure Laterality Date AV FISTULA PLACEMENT CARDIAC CATHETERIZATION CATARACT EXTRACTION COLONOSCOPY HAND SURGERY TRANSPLANTATION RENAL Patient Active Problem List Diagnosis Cataract Congestive heart failure ([facility]/HCC) Coronary atherosclerosis End-stage renal disease ([facility] History of renal transplant Peripheral vascular disease ([facility]) Increased infection risk status post immunosuppressive therapy Multiple congenital cysts of kidney Moderate mixed hyperlipidemia not requiring statin therapy COLD (chronic obstructive lung disease) ([facility]) Essential hypertension, benign Pleurisy with effusion Polycystic kidney DAVID (acute kidney injury) ([facility]) Hypomagnesemia Anemia of renal disease Basal cell carcinoma (BCC) of dorsum of nose Chronic heart failure with preserved ejection fraction (HFpEF) ([facility]) Type 2 diabetes mellitus with hyperglycemia, with long-term current use of insulin ([facility]) family history includes ALS in his brother; [...] not crush, c (more content not included)... [facility] 06-09-2024 Note Patient here for 1 [...] All other systems reviewed and are negative. [facility] 06-04-2024 Note Reviewed over the ph one with Dr. Martines patients mag 1.4. To make sure patient is consistently taking his mag. Spoke to patient who said he will work on it, he has issues with diarrhea while on it. He will try Maalox and call us if diarrhea is not improved. [facility] 04-13-2024 Note Patient called reque sting refill on Furosamide. Patient was informed rx was discontinued in Jan by Santana. [facility] 02-16-2024 History of Present illness Narrative [...] UNIT/ML pen documented in this encounter [facility] 02-11-2024 Note Transplant Clinic Patient [...] DM next week. Instructed patient to consider Sales Incentive Analyst locally to him: quan [place] castillo. Pt [...] (L) 07/09/2023 0913 K 5.2 (H) 07/09/2023 09 CL 93 (L) more content not included)... [facility] 02-02-2024 History of Present illness Narrative [...] Visit: 1 year documented in this encounter [facility] 01-19-2024 Note Mg 1.2 reviewed with PRUDENCIO Chou. Patient was previously refusing infusion for Magnesium and note from visit 10/30 was not complete. Per PRUDENCIO Chou on [employer] secure chat patient is to be on Amiliride 5mg daily, take Maalox and Mylanta with Mg. Phone call to patient who had stopped Amiliride in error and has been continuing to take Amlodipine which was discontinued. Patient requested script for Amiliride to be sent to [facility] in [place]. Reviewed magnesium rich foods with patient. Patient also states he is taking 2400 mg of magnesium daily. Instructed patient to get repeat labs this month. Patient verbalizes understanding. Also mailed standing lab order for monthly BK to patient to have added to standing labs. [facility] 03-05-2022 Procedure note [facility] 01-21-2022 Evaluation note Encounter Date Diagnosis Assessment Notes Jan, Diarrhea (ICD-10 - R19.7) Colonoscopy Okay to take Imodium - 1 tablet every morning Jan, Fecal urgency (ICD-10 - R15.2) [facility] Other 05-01-2010 History general Narrative - Reported* [...] Hospitalization History Kidney Issue; on transplant list ([facility]) 02/2018 Hospitalization History pulmonary embolism 0 [facility] Other Evaluation noteNo assessment information available [facility] Work Phone: Evaluation note* Diagnosis Onset Date Resolution Status Diarrhea acute [facility] Work Phone: Evaluation note* Diagnosis Type [...] without gangrene (CMS/HCC) documented in this encounter [facility] HealthcareEvaluation note* Diagnosis Sebaceous hyperplasia of face- Primary History of basal cell carcinoma Personal history of other malignant neoplasm of skin Lentigines [facility] Additional Instructions DISCHARGE [...] if you have any problems. -Office number [phone] Work Phone: Reason for visit NarrativePATIENT REFERRED BY DR. MCCARTHY FOR EVALUATION AND TREATMENT OF DIARRHEAJacob Styky Other Summary Purpose Family History No Family [...] section and content) DATE CREATED AUTHOR 07/13/2019 [facility] DATE CREATED AUTHOR AUTHOR'S ORGANIZ ATION 11/02/2021 [facility] DATE CREATED AUTHOR AUTHOR'S ORGANIZ ATION 03/12/2022 [facility] DATE CREATED AUTHOR AUTHOR'S ORGANIZ ATION 10/18/2022 [facility] DATE CREATED AUTHOR AUTHOR'S ORGANIZ ATION 02/16/2024 [facility] EPIC DATE CREATED AUTHOR AUTHOR'S ORGANIZ ATION 12/04/[address] [facility] Care Teams (unrecognized sec tion and content) Team Status: Inactive Member Role Status Dates Jericho Mccarthy MD Primary Care Provider Active Tj Wells MD Attending Provider Active Team Status: Active Member Role Status Dates Jericho Mccarthy MD Primary Care Provider Active Saw Maker Relationship Specialty Start Date End Date Jericho Mccarthy MD [address] [place] [phone] PCP - [facility] Family [facility] 08/25/23 Saw Maker Relationship Specialty Start Date End Date Jericho Mccarthy MD [address] [place] [phone] PCP - [facility] 08/25/23 Saw Maker Relationship Specialty Start Date End Date Jericho Mccarthy MD [address] [place] [phone] PCP - [facility] 08/25/23 Saw Maker Relationship Specialty Start Date End Date Jeircho Mccarthy MD [address] [place] [phone] PCP - General Family Medicine 08/25/23 Saw Maker Relationship Specialty Start Date End Date Jericho Mccarthy MD [address] [place] [phone] PCP - General Family Medicine 08/25/23 Goals [...] BE BASED ON THE PRIMARY CLINICAL RECORDS. [facility] provides no warranty or guarantee of the accuracy or completeness of information in this document.
[2025-01-21 07:53] LABS: Hematocrit 34.3 % (42.0-54.0); Hemoglobin 11.0 g/dL (14.0-18.0); Immature Granulocytes Abs Auto 0.05 10^3/uL (0.00-0.03); Immature Granulocytes Pct Auto 0.8 % (0.0-0.5); Lymphocytes Absolute Auto 0.9 10^3/uL (1.2-3.8); Mean Corpuscular HGB Conc 32.1 g/dL (29.9-35.2); Mean Corpuscular Hemoglobin 28.4 pg (25.9-34.0); Mean Corpuscular Volume 88.4 fL (80.0-94.0); Platelet Count 352 10^3/uL (150-450); Red Blood Count 3.88 10^6/uL (4.70-6.10); White Blood Count 6.3 10^3/uL (4.0-11.0)
[2025-01-21 10:55] LABS: Alanine Aminotransferase 20 U/L (16-63); Albumin Globulin Ratio 1.0; Albumin Level 3.7 g/dL (3.4-5.0); Alkaline Phosphatase 103 U/L (46-116); Anion Gap 12.2; Aspartate Amino Transferase 18 U/L (15-37); Blood Urea Nitrogen 11.0 mg/dL (7.0-18.0); Calcium 8.5 mg/dL (8.5-10.1); Carbon Dioxide 28.2 mmol/L (21.0-32.0); Chloride 105 mmol/L (98-107); Cholesterol 81 mg/dL (<=200); Estimated GFR (African America >60 (>=60 mL/min/1.73m^2); Estimated GFR (Non-African Ame >60 (>=60 mL/min/1.73m^2); Globulin 3.6 g/dL; Glucose 90 mg/dL (74-106); HDL Cholesterol 42 mg/dL (40-60); Magnesium 1.3 mg/dL (1.8-2.4); Potassium 4.4 mmol/L (3.5-5.1); Sodium 141 mmol/L (136-145); Total Protein 7.3 g/dL (6.4-8.2); Triglycerides 63 mg/dL (<=150); Uric Acid 6.2 mg/dL (3.5-7.2); VLDL CHOLESTEROL 12.6 mg/dL
[2025-01-22 08:09] LABS: Sex Horm Binding Glob, Serum 64.4 nmol/L (19.3-76.4)
[2025-01-22 16:13] LABS: BKV DNA, Quant PCR, Plasma Negative (Negative)
[2025-01-25 08:08] LABS: Tacrolimus (FK506), Blood 5.5 ng/mL (5.0-20.0)
== END 2025-01-21 06:54 | disposition home or self-care (01) ==
LOC: LAB 06:54
PROVIDERS: PCP Family Medicine; Visit Provider Internal Medicine Nephrology
DX: R73.01 Impaired fasting glucose (principal); Z94.0 Kidney transplant status
CPT/HCPCS: 36415; 80053; 80061; 80197; 82248; 83036; 83735; 84100; 84270; 84402; 84403; 84550; 85025; 87799

== ENCOUNTER 2025-04-06 07:08 | Outpatient (OUT) | payer MEDICARE, OTHER, SELFPAY ==
--- OUTSIDE RECORDS SUMMARY | 2025-04-06 07:12 | XMS_ITS | Clinical Summary ---
Author Organization [facility] Address [address] [place] [address] Care Team Providers Care Correctional Corporal Name Role Phone Jericho Centeno MD Primary Care Provider [phone] Jericho Abad [facility] Unavailable [phone] Allergies Active AllergyReactionsCriticalityNoted DateCommentsNsaids (Non-Steroidal Anti- Inflammatory Drug)04/01/2022 Medications MedicationSigDispense QuantityRefillsLast FilledStart DateEnd DateStatus sulfaSALAzine (Azulfidine) 500 mg EC tablet Take 500 mg by mouth in the morning and at bedtime.03/05/2022ctive isopropyl alcohoL 70 % towelette Indications:DAVID (acute kidney injury),Diabetic ketoacidosis without coma associated with type 2 diabetes mellitus (CMS/HCC)Test daily before all meals/snacks and once before bedtime. 1 each 04/30/2023ctive insulin glargine (Lantus Solostar U-100 Insulin) 100 unit/mL (3 mL) injection pen Indications:DAVID (acute kidney injury),Diabetic ketoacidosis without coma associated with type 2 diabetes mellitus (CMS/HCC)Inject 20 Units under the skin at bedtime. 3 mL ctive metFORMIN (Glucophage) 500 mg tablet Indications:DAVID (acute kidney injury),Diabetic ketoacidosis without coma associated with type 2 diabetes mellitus (CMS/HCC)Take 1 tablet (500 mg) by mouth with breakfast and with evening meal. 60 tablet 12/20/2023Active omeprazole OTC (PriLOSEC OTC) 20 mg EC tablet Indications:DAVID (acute kidney injury),Diabetic ketoacidosis without coma associated with type 2 diabetes mellitus (CMS/HCC)Take 1 tablet (20 mg) by mouth before breakfast. Do not crush, chew, or split. 30 tablet ctive blood-glucose meter [facility] [place] Indications:DAVID (acute kidney injury),Diabetic ketoacidosis without coma associated with type 2 diabetes mellitus (CMS/HCC)Test daily before all meals/snacks and once before bedtime. With 100 lancets and strips 1 each 05/01/2023ctive aspirin 81 mg EC tablet Take 81 mg by mouth in the morning.Active lisinopril 20 mg tablet Indications:Essential hypertensionTake 1 tablet (20 mg) by mouth in the morning. 90 tablet 502/6Active amLODIPine (Norvasc) 10 mg tablet Indications:Benign hypertensive heart disease without congestive heart failure Take 1 tablet (10 mg) by mouth once daily as directed. 90 tablet /[id number] cinacalcet (Sensipar) 30 mg tablet Indications:Aftercare following organ transplantTake 1 tablet every day by oral route. 90 tablet 5Active sildenafil (Revatio) 20 mg tablet Indications:Pulmonary hypertension (CMS/HCC)take 1 tablet by mouth three times a day 270 tablet 5Active aMILoride (Midamor) 5 mg tablet Indications:Hypomagnesemia,Kidney replaced by transplantTake 1 tablet (5 mg) by mouth in the morning. 90 tablet /[id number]/6Active carvedilol (Coreg) 12.5 mg tablet Indications:Essential hypertensionTAKE 1 TABLET BY MOUTH TWICE DAILY (WITH BREAKFAST and WITH evening meal) 180 tablet 5Active atorvastatin (Lipitor) 10 mg tablet Indications:Coronary artery disease, unspecified vessel or lesion type, unspecified whether angina present, unspecified whether [place] or transplanted heartTake 1 tablet (10 mg) by mouth every other day. 45 tablet 5Active mycophenolate (Myfortic) 180 mg EC tablet Indications:Kidney transplantedTake 4 tablets (720 mg) by mouth in the morning and at bedtime. 720 tablet 5Active tacrolimus (Prograf) 0.5 mg capsule Indications:Kidney transplantedTake 1 capsule (0.5 mg) by mouth in the morning and at bedtime. 180 capsule ctive tacrolimus (Prograf) 0.5 mg capsule Indications:Kidney transplantedTake 1 capsule (0.5 mg) by mouth in the morning and at bedtime. 180 capsule Discontinued(Reorder) mycophenolate (Myfortic) 180 mg EC tablet Indications:Kidney transplantedTake 4 tablets (720 mg) by mouth in the morning and at bedtime. 720 tablet Discontinued(Reorder) Active Problems ProblemNoted DateDiagnosed DateAnemia of renal emgpfdf9708/25/2023Type 2 diabetes mellitus with hyperglycemia, with long-term current use of smnjbaz5605/22/2023 Ovadrvtgpvdimw27/08/2024asal cell carcinoma (BCC) of dorsum of nose05/02/2023 DAVID (acute kidney injury)04/27/2023OLD (chronic obstructive lung disease) /04/2023Essential hypertension, geglkn26/3Pleurisy with /3Polycystic ovymas52/04/2023Moderate mixed hyperlipidemia not requiring statin ognurny3604/16/20227217Fstpfrqd85/20/2022 Congestive heart irjequd62/20/2022Coronary umwjocscmjpvopz07/20/2022Multiple congenital cysts of aiahsl072Chronic heart failure with preserved ejection fraction (HFpEF)01/29/2022 Overview (06/09/2024): Recent EF 45-50% History of renal ignxgwwmmw74/22/2022Increased infection risk status post immunosuppressive redfcjq9010/31/2021eripheral vascular tzuawoi9801/23/2018End- stage renal xgzzotz6607/22/2009 Encounters DateTypeDepartmentCare VyheQpnzsgpdhbc30/03/2025Refill [facility] Transplant [address] [place] [phone] Kiera Truong RN Kidney yaifwsfvxqwz81/03/2025[facility] [address] [place] [phone] Kiera Truong RN Kidney pvrpsnytyeoo83/09/2025[facility] [address] [facility] [address] [place] [phone] Sahil Mcghee MD Essential hypertension; Coronary artery disease, unspecified vessel or lesion type, unspecified whether angina present, unspecified whether [place] or transplanted heartfrom Last 3 Months Immunizations ImmunizationAdministration DatesNext DueInfluenza, Seasonal, Quadrivalent, Vrurojmwwa91/20/2021Influenza, Hakvfbfdnco58/01/2017Influenza, injectable, xbehkmjomykd49/01/2019Influenza, seasonal, qetamxvxqh34/05/2017,06/27/2016Pfizer SARS-CoV-2 Kgycqbyiwlh37/20/2021,08/02/2020,1Pneumococcal Polysaccharide CJT559302/01/2016 Family History Medical HistoryRelationNameCommentsALSBrotherCystic kidney diseaseBrotherHeart diseaseBrotherCystic kidney diseaseFatherHypertensionFatherSkin cancerFather Coronary artery diseaseMotherCystic kidney diseaseMotherDiabetesMother HypertensionMothercabgMotherCystic kidney diseaseSisterRelationNameStatus CommentsBrotherFatherDeceasedMotherDeceasedSister Social History Tobacco UseTypesPacks/DayYears UsedDateSmoking Tobacco: FormerCigarettes Smokeless Tobacco: NeverAlcohol UseStandard Drinks/WeekCommentsYes1 (1 standard drink = 0.6 oz pure alcohol)Humiliation, Afraid, Rape, and Kick questionnaire AnswerDate RecordedWithin the last year, have you been afraid of your partner or ex-partner?No04/27/2023Emotionally AbusedNot on file3Physically Abused Not on file04/27/2023Sexually AbusedNot on file04/27/2023Overall Financial Resource Strain (CARDIA)AnswerDate RecordedHow hard is it for you to pay for the very basics like food, housing, medical care, and heating?Not hard at all 04/27/2023HQ-2AnswerDate RecordedPatient Health Questionnaire-2 Score0 12/02/2024[facility] [place] [facility] - Occupational Stress QuestionnaireAnswerDate RecordedDo you feel stress - tense, restless, nervous, or anxious, or unable to sleep at night because yourmind is troubled all the time - these days?Only a jepxhd4111/11/2022UT Safety & EnvironmentAnswerDate RecordedWithin the last year, have you been afraid of your partner or ex-partner?No04/27/2023Emotionally AbusedNot on file04/27/2023hysically Abused Not on file04/27/2023Sexually AbusedNot on file04/27/2023In the past year have you been physically or sexually abused?Unrecognized value04/27/2023 TransportationAnswerDate RecordedIn the past 12 months, has lack of transportation kept you from medical appointments or from getting medications?No 04/27/2023Lack of Transportation (Non-Medical)Not on file04/27/2023Housing Stability Vital SignAnswerDate RecordedUnable to Pay for Housing in the Last YearNot on file04/27/2023Number of Places Lived in the Last YearNot on file 04/27/2023In the last 12 months, was there a time when you did not have a steady place to sleep or slept in ashelter (including now)?No04/27/2023Hunger Vital SignAnswerDate RecordedWithin the past 12 months, you worried that your food would run out before you got the money to buymore.Never true04/27/2023Ran Out of Food in the Last YearNot on file04/27/2023Sex and Gender InformationValueDate RecordedSex Assigned at KejpnUnmk35/18/2023 1:43 PM ESTLegal WikPeim9711/07/2021 10:39 PM EDTGender XfotmlysEtsw43/18/2023 1:43 PM ESTSexual Orientation Heterosexual or Scvngmkr85/18/2023 1:43 PM EST Last Filed Vital Signs Vital SignReadingTime TakenCommentsBlood Lputfgiw739/8107 2:13 PM EDT Zxqsc278612/02/2024 2:13 PM ERUAeweijlybyt95.5 ??C (97.7 ??F)12/02/2024 2:13 PM EDTRespiratory Tbcc767512/02/2024 2:13 PM EDTOxygen Cwfdmxvbzt40%12/02/2024 2:13 PM EDTInhaled Oxygen Concentration--Mawecq00.8 kg (162 lb 11.2 oz)12/02/2024 2:13 PM LFNHyrkpe174.6 cm (5' 6 )12/02/2024 2:13 PM EDTBody Mass Index26.26 12/02/2024 2:13 PM EDT Plan of Treatment DateTypeDepartmentCare Team (Latest Contact Info)Acsovhskomp97/29/2026 3:15 PM ESTFollow-Up [facility] Transplant [address] [place] [phone] Jessica Fields, [facility] [address] [place] [address] Health MaintenanceDue DateLast DoneCommentsCT Lrnyvizmenuy04/06/1951Colonoscopy 2Colorectal Cancer Nqozxfrrd05/06/1952FIT-DNA1951FIT1950 FOBT1950Medicare Annual Wellness (AWV)1950 2005Tuxmzdvzoqdfj40/06/1951 Diabetes: Retinopathy Bgqqyqfkg14/06/1962Diabetes: Urine Protein Screening 12/15/1970Zoster Vaccines (1 of 2)12/15/1970Adult Jzwgtdb4712/15/1973Pneumococcal Vaccine: 50+ Years (2 of 2 - PCV)/Diabetes: Hemoglobin A1C /, 04/28/2023, 11/11/2022, Additional history existsCOVID-19 Vaccine (4 - season), 04/30/2021, 04/30/2021, Additional history existsInfluenza Vaccine (#1)/02/2023, 04/30/2021, 02/09/2019, Additional history existsDepression Pxcaquxed78/ Fall Risk Ohbmouird10HIB VaccinesAged OutNo longer eligible based on patient's age to complete this topicHPV VaccinesAged OutNo longer eligible based on patient's age to complete this topicIPV VaccinesAged OutNo longer eligible based on patient's age to complete this topicMeningococcal B VaccineAged OutNo longer eligible based on patient's age to complete this topic Meningococcal VaccineAged OutNo longer eligible based on patient's age to complete this topicRotavirus VaccinesAged OutNo longer eligible based on patient's age to complete this topic Procedures Procedure NamePriorityDate/TimeAssociated DiagnosisCommentsHEMOGLOBIN J0EGlvsght 07/09/2023 9:13 AM EST History of kidney transplant Impaired glucose tolerance from Last 3 Months or Most Recently Relevant to Health Maintenance Results * (ABNORMAL) Hemoglobin A1c (07/09/2023 9:13 AM EST)ComponentValueRef RangeTest MethodAnalysis TimePerformed AtPathologist SignatureHemoglobin A1C7.2(H)4.0 - 6.0 %07/09/2023 1:29 PM [facility] ([facility])Estimated Average Glucose 160mg/dL07/09/2023 1:29 PM [facility] ([facility])Specimen (Source) Anatomical Location / LateralityCollection Method / VolumeCollection Time Received TimeBloodVenous blood specimen / UnknownVenipuncture / Unknown 07/09/2023 9:13 AM EST07/09/2023 9:13 AM EST Narrative Authorizing ProviderResult TypeResult StatusObi Jil STILL BLOOD ORDERABLES Final ResultPerforming OrganizationAddressCity/State/ZIP CodePhone Number [facility] ([facility]) [address] [place] [address] from Last 3 Months or Most Recently Relevant to Health Maintenance Insurance * Guarantor: Wm Suarez EAccount TypeRelation to PatientDate of BirthPhone Billing AddressPersonal/VzoupzJmni88/06/1951 [address] [facility] [place] [address] [place] [address] [place] [address] Advance Directives * Full Code (Latest Code Status on File) Date ActivatedDate LzciuzhcppgIzvyqzfw11/17/2023 11:12 PM04/30/2023 3:41 PM Care Teams Team MemberRelationshipSpecialtyStart DateEnd Date Jericho Centeno MD [address] [place] [address] PCP - General01/29/22 Jericho Abad CNP [address] [place] [address] Nurse IpzkqgffddehVwvmovx61/6/22
--- OUTSIDE RECORDS SUMMARY | 2025-04-06 07:12 | XMS_ITS | Clinical Summary ---
Author Organization [facility] Address [address] [place] [address] Care Team Providers Care Panel Installer Name Role Phone Jericho Centeno MD Primary Care Provider [phone] Allergies Active AllergyReactionsCriticalityNoted XypdXingdaccKdomyb83/21/2022 Medications MedicationSigDispense QuantityRefillsLast FilledStart DateEnd DateStatus mycophenolate (Myfortic) 180 MG EC tablet Take 4 tablets by mouth in the morning and 4 tablets before bedtime.Active tacrolimus (Prograf) 0.5 MG capsule Take by mouth in the morning and before bedtime.Active cinacalcet (Sensipar) 30 MG tablet Take 30 mg by mouth Daily Take with food or shortly afer a meal. Swallow tablet whole; do not breakor divide.Active carvedilol (Coreg) 6.25 MG tablet Take 1 tablet by mouth in the morning and 1 tablet in the evening. Take with meals.Active lisinopril 20 MG tablet Take 20 mg by mouth DailyActive sildenafil (Revatio) 20 MG tablet Take 20 mg by mouth every 8 (eight) hours11/29/2022ctive amLODIPine (Norvasc) 10 MG tablet Take 10 mg by mouth DailyActive magnesium oxide (Mag-Ox) 400 MG tablet Take 400 mg by mouth in the morning and 400 mg in the evening and 400 mg before bedtime.Active omeprazole OTC (PriLOSEC OTC) 20 MG EC tablet Take 20 mg by mouth in the morning. Take before meals.04/30/2023ctive atorvastatin (Lipitor) 10 MG tablet 10/04/2022ctive aspirin 81 MG EC tablet Take 81 mg by mouth DailyActive furosemide (Lasix) 20 MG tablet Take 20 mg by mouth Daily09/16/2023ctive metFORMIN (Glucophage) 500 MG tablet Indications:Type 2 diabetes mellitus with hyperglycemia, without long-term current use of insulin ([facility])TAKE 1 TABLET BY MOUTH TWICE DAILY WITH BREAKFAST AND WITH DINNER 300 tablet ctive insulin glargine (Basaglar KwikPen) 100 UNIT/ML pen Indications:Type 2 diabetes mellitus with hyperglycemia, with long-term current use of insulin (HCC)Inject 20 units subcutaneously at bedtime 15 mL 01/03/2025tive Active Problems ProblemNoted DateDiagnosed DateAnemia of renal thomwsh7108/25/2023Type 2 diabetes mellitus with hyperglycemia, with long-term current use of qlwusxg8605/22/2023 Assessment & Plan (02/16/2024 8:49 AM EDT): [...] Basal cell carcinoma (BCC) of dorsum of nose05/02/20238699Pfykuvpj28/22/2023 Overview (05/02/2023): s/p bilateral PHACO w IOL. Essential hypertension, oggbgz8104/16/2023 Assessment & Plan (02/16/2024 8:48 AM EDT): BP controlled and monitor PRN. Assessment & Plan (08/25/2023 8:45 AM EDT): BP controlled and monitor PRN. Assessment & Plan (05/22/2023 10:51 AM EST): BP controlled and monitor PRN. COPD (chronic obstructive pulmonary disease)04/16/2023 Assessment & Plan (08/25/2023 8:45 AM EDT): Breathing stable and follow with pulmonology. Pleurisy with swxrochd56/06/2023olycystic hzegor3104/16/2023Moderate mixed hyperlipidemia not requiring statin pgydouo2604/16/2022hronic heart failure with preserved ejection fraction (HFpEF)01/29/2022 Overview (05/02/2023): Recent EF 45-50% Assessment & Plan (08/25/2023 8:45 AM EDT): Edema controlled and continue medication. Elevated legs PRN. Assessment & Plan (05/22/2023 10:51 AM EST): Edema controlled and continue medication. Elevated legs PRN. Coronary blckfekdywfrjpt61/20/2022 Overview (05/02/2023): nonobstructive Multiple congenital cysts of telftz3001/29/2022Increased infection risk status post immunosuppressive pqewuhq9110/31/2021History of renal /22/2022 Assessment & Plan (08/25/2023 8:45 AM EDT): Follow with transplant team. Peripheral vascular lvujrlp6801/23/2018 Overview (05/02/2023): noted on CT scan 01/21/18 Assessment & Plan (02/16/2024 8:49 AM EDT): Follow with specialists. End-stage renal hwbdlok0807/22/2009 Resolved Problems ProblemNoted DateDiagnosed DateResolved DateHypertensive pjlkdehh86/22/2023 08/25/2023 Overview (05/02/2023): past 27 years, controlled with medications DAVID (acute kidney injury)/ Assessment & Plan (05/22/2023 10:50 AM EST): Recent DAVID but improved after treatment. Follow up with transplant team. Kidney replaced by kohznhhdbr48 Encounters DateTypeDepartmentCare OyvqSqqyumzskqd83/25/2025 9:05 AM EDTOffice Visit [facility] [address] [place] [phone] Ashley Traore MD Seborrheic keratosis (Primary Dx); Lentigines; Sebaceous hyperplasia of face; History of basal cell afcjddtue23/25/2025amboo flowsheet [facility] [address] [place] [phone] Ashley Traore MD 02/03/2025Travelfrom Last 3 Months Immunizations ImmunizationAdministration DatesNext DueInfluenza, High-dose Seasonal, Quadrivalent, Preservative Free02/18/2023Influenza, Seasonal, Quadrivalent, Qliurpgcgb43/20/2021Influenza, Kspapxllbrv40/01/2017Influenza, injectable, phxxdjtmaqwy44/01/2019Influenza, seasonal, wupvgkmwmd51/05/2017,06/27/2016 Pneumococcal Polysaccharide VPKM3224 Family History Medical HistoryRelationNameCommentsPolycystic kidney diseaseMotherRelationName StatusCommentsMother Social History Tobacco UseTypesPacks/DayYears UsedDateSmoking Tobacco: IwkcpvUevtvfagru1239 - 1992Smokeless Tobacco: NeverSex and Gender InformationValueDate RecordedSex Assigned at BirthNot on fileLegal YkkDxno6707/24/2022 11:30 PM EDTGender Identity Not on fileSexual OrientationNot on file Last Filed Vital Signs Vital SignReadingTime TakenCommentsBlood Nxwxvheo398/6010 8:19 AM EDT Iloql5320 8:19 AM DRNDpiaelblqrk06.4 ??C (97.5 ??F)02/16/2024 8:19 AM EDTRespiratory Amoq2277 8:19 AM EDTOxygen Sfhbbhruiw46%02/16/2024 8:19 AM EDTInhaled Oxygen Concentration--Wldghf53.5 kg (151 lb)02/16/2024 8:19 AM EDT Cdlgsk844.6 cm (5' 6 )02/16/2024 8:19 AM EDTBody Mass Index24.371 8:19 AM EDT Plan of Treatment DateTypeDepartmentCare Team (Latest Contact Info)Isjjaqyhylr53/24/2026 8:30 AM EDTOffice Visit [facility] [address] [place] [phone] Ashley Traore MD [address] [place] [address] Health MaintenanceDue DateLast DoneCommentsCT Jhoxezrtrxmo70/06/1951Colonoscopy 2Colorectal Cancer Iexgdejeb34/06/1952FIT-DNA1950FIT1950 FOBT1950 1803Lahwvcjwqusom20/06/1952neumococcal Vaccine: 65+ Years (2 of 2 - PCV)COVID-19 Vaccine (2024- season)2025 02/18/2023, 04/30/2021, 08/02/2020, Additional history existsInfluenza Vaccine (#1), 04/30/2021, 02/09/2019, Additional history exists Insurance Care Teams Team MemberRelationshipSpecialtyStart DateEnd Date Jericho Centeno MD [address] [place] [phone] [facility]
--- OUTSIDE RECORDS SUMMARY | 2025-04-06 07:12 | XMS_ITS | Clinical Summary ---
Author Organization [facility] Address [address] [place] [address] Phone Care Team Providers Care Correspondent Name Role Phone Unavailable Primary Care Provider Unavailabl e Social History Tobacco UseTypesPacks/DayYears UsedDateSmoking Tobacco: Never AssessedSex and Gender InformationValueDate RecordedSex Assigned at BirthNot on fileLegal Sex Male04/05/2022 1:17 PM ESTGender IdentityNot on fileSexual OrientationNot on file Plan of Treatment Not on file
--- OUTSIDE RECORDS SUMMARY | 2025-04-06 07:13 | XMS_ITS | CCD ---
Author Organization [facility] Care Team Providers Care Balance Wheel Hand Filer Name Role Phone Tj Wells Unavailable MD Jericho Mccarthy Primary Care Provider [phone] MD Tj Wells Attending Provider Tj Wells Attending Unavailabl e NadereJericho sullivan Primary Care Unavailable Tj Wells Admitting Unavailabl e Maira, Tj Sullivan Admitting Unavailabl e Tj Wells Attending Unavailabl e NadereJericho sullivan Primary Care Unavailable MISC, DR ALVAREZ Attending Unavailable MISC, DR ALVAREZ Admitting Unavailable MISC, DR ALVAREZ Consulting Unavailable NADERER, DR JERICHO Floyd Primary Care Unavailable KAIBAB, DR MERRITT Consulting Unavailable KAIBAB, DR MERRITT Attending Unavailable KAIBAB, DR MERRITT Admitting Unavailable NADERER, DR FERGUSON A Primary Care Unavailable MISC, DR ALVAREZ Attending Unavailable MISC, DR ALVAREZ Admitting Unavailable NADERER, DR JERCIHO Floyd Primary Care Unavailable MISC, DR ALVAREZ Consulting Unavailable KAIBAB, DR MERRITT Consulting Unavailable KAIBAB, DR MERRITT Attending Unavailable NADERER, DR JERICHO Floyd Primary Care Unavailable KAIBAB, DR MERRITT Admitting Unavailable MISC, DR ALVAREZ [...] NADHAROON, DR JERICHO Floyd Primary Care Unavailable Jericho Mccarthy MD Primary Care Provider [phone] AZEB LEE Attending Unavailable SABINA FUNES Attending Unavailable SANTANA LANDIN Attending Unavailable Jericho Mccarthy MD Primary Care Provider [phone] Naga Bosch Attending Provider [phone] Jericho Mccarthy MD Attending Provider [phone] Jericho Mccarthy MD Primary Care Provider [phone] RAJESH TRAORE Attending Unavailable JERICHO MCCARTHY Attending Unavailable Jericho Mccarthy MD Primary Care Provider [phone] Allergies Allergy ClassificationReported Allergen(s)Allergy TypeDate of OnsetReaction(s) Facility (16 sources)Non-steroidal anti-inflammatory agentDrug Bldznhebtpz32-52-9670[facility] (1 source)NSAIDs; Translations: [NSAIDS (NON-STEROIDAL ANTI-INFLAMMATORY DRUG)] Propensity to adverse reactions to drug (disorder)30-73-0192OejmijtuolMercer [facility] Medications Current Medications MedicationDrug Class(es)DatesSig (Normalized)Sig (Original)aMILoride hydrochloride 5 mg oral tablet (7 sources)Potassium-sparing DiureticStart: 01-19-2024 End: 00-62-0888ihdw 1 tablet by mouth in the morningaMILoride (Midamor) 5 MG tablet Take 5 mg by mouth in the morning. 01/19/2024 01/18/2025 ActiveamLODIPine 10 mg oral tablet (20 sources)Dihydropyridine Calcium Channel BlockerStart: 55-44-1841knuh 1 tablet by mouth once dailyAmlodipine 10 mg tablet Active 10 MG PO Daily July 08, 2017 1:00am Complies with drug therapyaspirin 81 mg oral tablet (14 sources)Platelet Aggregation Inhibitor, Nonsteroidal Anti-inflammatory Drug Start: 79-91-8114crjv 1 tablet by mouth once dailyAspirin 81 mg tablet Active 81 MG PO Daily January 21, 2025 12:00am Complies with drug therapyStart: 02-23-2019 End: 55-23-9409tczl 1 tablet by mouth once dailyAspirin (Aspirin Low Dose) 81 mg Tablet,Delayed Release (Dr/Ec) Discontinued 81 MG PO Daily 2018 12:00am March 05, 2022 7:07amatorvastatin 10 mg oral tablet (19 sources)HMG-CoA Reductase InhibitorStart: 79-53-5775zzyyfsydmfvf (Lipitor) 10 MG tablet 10/04/2022 ActiveStart: 19-90-6705nqje 1 tablet by mouth once daily Atorvastatin 10 mg tablet Active 10 MG PO Daily March 05, 2022 12:00am Complies with drug therapytake 1 tablet by mouth once dailyAtorvastatin Calcium 10 MG take 1 tablet by mouth once daily Oral for 90 Activecarvedilol 6.25 mg oral tablet (20 sources)alpha-Adrenergic Swetha, beta-Adrenergic BlockerStart: 01-21-2025 take 1 tablet by mouth twice daily at mealtimeCarvedilol 6.25 mg tablet Active 6.25 MG PO Twice daily January 21, 2025 12:00am must administer with a meal/food Complies with drug therapyStart: 03-05-2022 End: 44-14-3269gkbo 1 tablet by mouth twice dailyCarvedilol 3.125 mg tablet Discontinued 3.125 MG PO Twice daily March 05, 2022 12:00am January 21, 2025 10:18amStart: 08-26-2018 End: 36-98-1848cnaq 1 tablet by mouth twice dailyCarvedilol 25 mg Tablet Discontinued 25 MG PO Twice daily 0 August 27, 2018 12:00am February 23, 2019 7:14amStart: 07-08-2017 End: 23-32-0108pphv 1 tablet by mouth twice dailyCarvedilol 6.25 mg tablet Discontinued 1 TAB PO Twice daily July 08, 2017 1:00am August 26, 2018 8:28amcinacalcet 30 mg oral tablet (20 sources)Calcium-sensing Receptor AgonistStart: 91-98-8804lthi 1 tablet by mouth once dailyCinacalcet 30 mg tablet Active 30 MG PO Daily January 21, 2025 12:00am Complies with drug therapyCinacalcet HCl Activedicyclomine hydrochloride 20 mg oral tablet (2 sources)AnticholinergicStart: 12-83-6354lxka 1 tablet by mouth twice daily furosemide 20 mg oral tablet (14 sources)Loop DiureticStart: 03-05-2022 End: 50-32-7290brxr 1 tablet by mouth once dailyfurosemide (Lasix) 20 MG tablet Take 20 mg by mouth Daily 09/16/2023 Activetake 1 tablet by mouth every twenty- four hoursLasix 20 MG 1 tablet Orally Once a day Active3 ml insulin glargine 100 unt/ml pen injector (18 sources)Insulin AnalogStart: 46-60-3546dqfvsw 20 [IU] by subcutaneous injection once daily at bedtimeInsulin Glargine 100 unit/mL (3 mL) insulin pen Active 20 UNIT SUBCUT Daily at bedtime January 21, 2025 12:00am Complies with drug therapyStart: 88-84-0204jullxdg glargine (Basaglar KwikPen) 100 UNIT/ML pen Indications: Type 2 diabetes mellitus with hyperglycemia, with long- term current use of insulin ([facility]) Inject 20 units subcutaneously at bedtime 15 m L 01/03/2025 ActiveStart: 85-64-2054Nanjxdvb KwikPen 100 UNIT/ML pen Indications: Type 2 diabetes mellitus with hyperglycemia, with long-term current use of insulin ([facility]) INJECT 20 UNITS SUBCUTANEOUSLY (UNDER THE SKIN) AT BEDTIME 15 mL10/19/2024 ActiveStart: 35-62-2804Udrltfmd KwikPen 100 UNIT/ML pen Indications: Type 2 diabetes mellitus with hyperglycemia, with long-term current use of insulin ([facility]) INJECT 20 UNITS SUBCUTANEOUSLY (UNDER THE SKIN) AT BEDTIME 15 mL 08/05/2024 ActiveStart: 09-65-3739Epmgvqms KwikPen 100 UNIT/ML pen Indications: Type 2 diabetes mellitus with hyperglycemia, with long-term current use of insulin (CMS/[facility]) INJECT 20 UNITS SUBCUTANEOUSLY (UNDER THE SKIN) AT BEDTIME 15 mL 05/21/2024 ActiveStart: 13-14-6159Hfkwrfkg KwikPen 100 UNIT/ML pen Indications: Type 2 diabetes mellitus with hyperglycemia, with long-term current use of insulin (CMS/HCC) INJECT 20 UNITS SUBCUTANEOUSLY (UNDER THE SKIN) AT BEDTIME 15 mL 03/03/2024 ActiveStart: 30-71-5372bcezylk glargine (Basaglar KwikPen) 100 UNIT/ML pen Indications: Type 2 diabetes mellitus with hyper glycemia, with long-term current use of insulin (CMS/HCC) Inject 15 Units under the skin in the morning. 02/16/2024 ActiveStart: 64-56-1789jrjdknz glargine (Basaglar KwikPen) 100 UNIT/ML pen Indications: Type 2 diabetes mellitus with hyperglycemia, with long-term current use of insulin (CMS/HCC) Inject 15 Units under the skin in the morning. 02/16/2024 ActiveStart: 11-18-2023 End: 90-20-3566arwuzur glargine (Basaglar KwikPen) 100 UNIT/ML pen Indications: Type 2 diabetes mellitus with hyperglycemia, with long-term current use of insulin (CMS/HCC) INJECT 20 UNITS SUBCUTANEOUSLY AT BEDTIME6 mL 3 11/18/2023 02/16/2024 Discontinuedlisinopril 20 mg oral tablet (20 sources)Angiotensin Converting Enzyme InhibitorStart: 01-07-2017 End: 85-36-5254tvkx 1 tablet by mouth once dailyLisinopril 20 mg tablet Active 20 MG PO Daily January 21, 2025 12:00am Complies with drug therapyStart: 52-63-4181rexi 20 mg by mouth twice dailyLisinopril Active 20 MG PO Twice daily January 07, 2017 12:00amMagnesium (1 source)Magnesium Activemagnesium oxide 400 mg oral tablet (20 sources)Start: 63-06-0812vaxk 1 tablet by mouth three times dailyMagnesium Oxide 400 mg (241.3 mg magnesium) tablet Active 400 MG PO Three times daily January 21, 2025 10:25am Complies with drug therapyStart: 03-05-2022 End: 51-38-9783gahh 1 tablet by mouth twice dailyMagnesium Oxide 400 mg (241.3 mg magnesium) tablet Discontinued 1200 MG PO Twice daily March 05, 2022 12:00am January 21, 2025 10:47amMagnesium Oxide ActivemetFORMIN hydrochloride 500 mg oral tablet (16 sources)BiguanideStart: 18-04-9563jmpa 1 tablet by mouth twice daily at dinnermetFORMIN (Glucophage) 500 MG tablet Indications: Type 2 diabetes mellitus with hyperglycemia, without long-term current use of insulin (HCC) TAKE 1 TABLET BY MOUTH TWICE DAILY WITH BREAKFAST AND WITH DINNER 300 tablet 2 04/29/2024 ActiveStart: 40-24-8702ppjw 1 tablet by mouth twice daily at dinner metFORMIN (Glucophage) 500 MG tablet Indications: Type 2 diabetes mellitus with hyperglycemia, without long-term current use of insulin (CMS/HCC) take 1 tablet by mouth twice a day WITH MORNING AND EVENING MEALS 180 tablet 11 11/27/2023 Activemycophenolic acid 180 mg delayed release oral tablet (18 sources)Antimetabolite ImmunosuppressantStart: 98-63-5428sklh 4 tablets by mouth twice dailyMycophenolate Sodium 180 mg tablet,delayed release (DR/EC) Active 720 MG PO Twice daily January 21, 2025 12:00am Complies with drug therapytake 2 tablets by mouth every twelve hoursMycophenolate Sodium 180 MG 2 tablets Orally Twice a day Activeomeprazole 20 mg delayed release oral capsule (16 sources)Proton Pump InhibitorStart: 92-01-3390ydqh 1 capsule by mouth once dailyOmeprazole 20 mg capsule,delayed release(DR/EC) Active 20 MG PO Daily January 21, 2025 12:00am Complies with drug therapyStart: 57-14-5411ncfz 1 tablet by mouth before mealtimeomeprazole OTC (PriLOSEC OTC) 20 MG EC tablet Take 20 mg by mouth in the morning. Take before meals. 04/30/2023 Active sildenafil 20 mg oral tablet (19 sources)Phosphodiesterase 5 InhibitorStart: 18-15-3031pdoa 1 tablet by mouth every eight hourssildenafil (Revatio) 20 MG tablet Take 20 mg by mouth every 8 (eight) hours 11/29/2022 ActiveStart: 26-04-3372ltmr 1 tablet by mouth three times dailySildenafil (Pulm.Hypertension) 20 mg tablet Active 20 MG PO Three times daily March 05, 2022 12:00am Complies with drug therapytake 1 tablet by mouth three times dailySildenafil Citrate 20 MG take 1 tablet by mouth three times a day Oral for 30 ActivesulfaSALAzine 500 mg oral tablet (5 sources)AminosalicylateStart: 07-22-2023 End: 54-14-6477czwy 1 tablet by mouth in the morningsulfaSALAzine (Azulfidine) 500 MG tablet Take 500 mg by mouth in the morning and 500 mg before bedtime. 11/12/2023 02/16/2024 DiscontinuedStart: 03-05-2022 End: 38-96-0878ibbj 1 g by mouth twice dailySulfasalazine 500 mg tablet,delayed release (DR/EC) Discontinued 1 GM PO Twice daily March 05, 2022 12:00am January 24, 2025 11:24amStart: 45-79-5751eclq 1 g by mouth twice daily Sulfasalazine Active 1 GM PO Twice daily March 05, 2022 12:00am24 hr tacrolimus 0.5 mg extended release oral capsule (19 sources)Calcineurin Inhibitor ImmunosuppressantStart: 15-77-6565vxpo 1 capsule by mouth twice daily after mealtimeTacrolimus 0.5 mg Capsule,Extended Release 24hr Active 0.5 MG PO Twice daily March 05, 2022 12:00am must administer in the morning on an empty stomach, 1 hour before or 2 hours after a meal Complies with drug therapytake 1 capsule by mouth at bedtimetacrolimus (Prograf) 0.5 MG capsule Take by mouth in the morning and before bedtime. Active Tacrolimus 0.03 % 1 application Externally Once a day Active Completed/Discontinued Medications MedicationDrug Class(es)DatesSig (Normalized)Sig (Original)calcium acetate 667 mg oral capsule (6 sources)Start: 02-23-2019 End: 95-75-1632Ewwbkuh Acetate(Phosphat Bind) 667 mg Capsule Discontinued 1334 MG PO Three times daily February 23, 2019 12:00am March 05, 2022 7:07am Start: 02-23-2019 End: 39-66-7901xdvx 1334 mg by mouth three times dailyCalcium Acetate(Phosphat Bind) Discontinued 1334 MG PO Three times daily February 23, 2019 12:00am March 05, 2022 7:07amStart: 01-07-2017 End: 54-25-7506Ojrfexq Acetate(Phosphat Bind) 667 mg Capsule Discontinued 2001 MG PO Three times daily January 07, 2017 12:00am July 08, 2017 8:01am Start: 01-07-2017 End: 42-66-6068fkhk 2001 mg by mouth three times dailyCalcium Acetate(Phosphat Bind) Discontinued 2001 MG PO Three times daily January 07, 2017 12:00am F ebruary 2017 8:01amcolchicine 0.6 mg oral tablet (3 sources)Start: 02-23-2019 End: 86-37-7967iige 1 tablet by mouth once dailyColchicine (Colcrys) 0.6 mg tablet Discontinued 1 TAB PO Daily February 23, 2019 12:00am March 05, 2022 7:07am1 ml epoetin greg 3000 unt/ml injection (3 sources)Erythropoiesis-stimulating AgentStart: 08-26-2018 End: 95-09-7913Ggyalyk Greg (Epogen) 3,000 unit/mL Solution Discontinued 2600 UNIT IV MOWEFR@0900 August 26, 201812:00am March 05, 2022 7:07amheparin sodium, porcine 1000 unt/ml injectable solution (6 sources)Unfractionated Heparin, Anti-coagulantStart: 07-08-2017 End: 20-18-5201Dlgktdm (Porcine) 1,000 unit/mL Solution Discontinued 5000 UNIT IV As Directed 0 July 08, 2017 9:53am March 05, 2022 7:07amStart: 07-08-2017 End: 63-63-4823Dvrmdoo (Porcine) Discontinued 5000 UNIT IV As Directed 0 July 08, 2017 9:53am March 05, 2022 7:07amhydrALAZINE hydrochloride 25 mg oral tablet (3 sources)Arteriolar VasodilatorStart: 02-23-2019 End: 31-50-0929hbne 1 tablet by mouth twice dailyHydralazine 25 mg tablet Discontinued 1 TAB PO Twice daily February 23, 2019 12:00am February 7:07amlidocaine 25 mg/ml / prilocaine 25 mg/ml topical cream (3 sources)Antiarrhythmic, Amide Local AnestheticStart: 07-08-2017 End: 30-75-7691Gyjtdlnop-Prilocaine 2.5-2.5 % cream Discontinued 1 UNIT TOPICAL As Directed July 08, 2017 1:00am March 05, 2022 7:07amoxyCODONE hydrochloride 5 mg oral tablet (3 sources)Opioid AgonistStart: 01-14-2017 End: 66-19-5548djcj 1 tablet by mouth every six hours as needed for pain Oxycodone 5 mg Tablet Discontinued 5 MG PO Q6H as needed for Pain January 14, 2017 12:00am July 08, 2017 7:56am1 ml paricalcitol 0.005 mg/ml injection (3 sources)Vitamin D3 AnalogStart: 07-08-2017 End: 00-61-3835hsnl 2 ug intravenously onceParicalcitol (Zemplar) 5 mcg/mL Solution Discontinued 2 MCG IV MOWEFR@0900 July 08, 2017 1:00am March 05, 2022 7:07am RECEIVES 2 MCG IVP MWF DURING DIALYSIS PER [facility] (08/26/18)5 ml sodium ferric gluconate complex 12.5 mg/ml injection (3 sources)Start: 07-08-2017 End: 57-24-8166Svgoin Ferric Gluconat-Sucrose (Ferrlecit) 62.5 mg/5 mL Solution Discontinued 125 MG IV Q14D July 08, 2017 1:00am March 05, 2022 7:07am RECEIVES FERRLECIT 125MG IVP EVERY OTHER FRIDAY (DOSE DUE 08/26/18 PER [facility]) Problems Active Problems Problem ClassificationProblemDateDocumented DateEpisodic/ChronicCataract (16 sources)Cataract; Translations: [Unspecified cataract]Onset: 05-02-2023 16-14-0868ItgjvkgNuwcvqs kidney disease (20 sources)Dependence on renal dialysis; Translations: [Dependence on renal dialysis]Onset: 293057-87-8121OimumqaJfvzmpu obstructive pulmonary disease and bronchiectasis (17 sources)Chronic obstructive lung disease; Translations: [Chronic obstructive pulmonary disease, unspecified]Onset: 941326-80-7039KdbrmkwRxepzlptbo heart failure; nonhypertensive (20 sources)Chronic heart failure co-occurrent with normal ejection fraction; Translations: [Chronic diastolic (congestive) heart failure]Onset: 01-29-2022 99-39-5987NomdihkFpcdrpyf atherosclerosis and other heart disease (20 sources)Coronary atherosclerosis; Translations: [Atherosclerotic heart disease of [place]reafski coronary artery without angina pectoris]Onset: 01-29-2022 07-12-9763XeansgcAcamdgfv mellitus with complications (20 sources)Hyperglycemia due to type 2 diabetes mellitus; Translations: [Type 2 diabetes mellitus with hyperglycemia]Onset: 840478-84-3586Isutlyt Disorders of lipid metabolism (18 sources)Pure hypercholesterolemia, unspecified; Translations: [Mixed hyperlipidemia]Onset: 505183-25-1427KzajsdjZiyebdrtsc disorders (3 sources)Gastroesophageal reflux disease; Translations: [Gastro-esophageal reflux disease without esophagitis]14-46-5704CvfyizbQxgddxthd hypertension (20 sources)Hypertensive disorder; Translations: [Essential (primary) hypertension]Onset: 11-16-2021 Resolved: 598237-45-2096TmjcztwHgxldaobyblpj congenital anomalies (20 sources)Multiple congenital cysts of kidney; Translations: [Polycystic kidney, unspecified]Onset: 776187-98-8747UxdebgbRibrsxvtbems with complications and secondary hypertension (3 sources)Hypertensive emergency; Translations: [Hypertensive emergency] 71-86-8068LspehmpUgkkg aftercare (4 sources)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; 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 AFTERCARE FLW OTH ORGNTRANSPL]Onset: 35-92-2057WjohcgzBmcnp aftercare (4 sources)Encounter for aftercare following kidney transplant; 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 AFTERCARE FLW KIDNEY TRANSPL]Onset: 58-63-8005BnhetjlLbiaa connective tissue disease (2 sources)Swelling of upper limb; Translations: [Other specified soft tissue disorders]26-55-7299MkztgafyRmaqb connective tissue disease (1 source)Swelling of left upper limb; Translations: [Other specified soft tissue disorders]34-07-7834GgvwvxomZrtsc diseases of kidney and ureters (3 sources)Hyperparathyroidism due to renal insufficiency; Translations: [Secondary hyperparathyroidism of renal origin]02-23-6607XabimclXsstd gastrointestinal disorders (3 sources)Diarrhea; Translations: [Diarrhea, unspecified]04-58-2154Yfjvwlqd Other lower respiratory disease (3 sources)Acute cardiac pulmonary edema ; Translations: [Acute pulmonary edema] 82-94-3066AgkmuknpWdpph screening for suspected conditions (not mental disorders or infectious disease) (2 sources)Other specified abnormal findings of blood chemistry; Translations: [Encounter for screening for malignant neoplasm of other genitourinary organs] Onset: 08-94-3860UgbqvkrpBgkoh skin disorders (3 sources)Lentiginosis; Translations: [Other melanin hyperpigmentation] 34-54-1588AuvfsecoBdobx skin disorders (3 sources)Sebaceous hyperplasia; Translations: [Other specified follicular disorders]98-16-5133AeuexrhyAdjra skin disorders (1 source)Seborrheic keratosis; Translations: [Other seborrheic keratosis] 25-47-3372YulotrznUdyonlvvpz and visceral atherosclerosis (19 sources)Peripheral vascular disease; Translations: [Peripheral vascular disease, unspecified]Onset: 007121-00-8893PrrgzhoCrkfdoeyj heart disease (3 sources)Primary pulmonary hypertension; Translations: [Pulmonary hypertension]Onset: 33-02-0743BgkaxyhQvvzxyxchwi failure; insufficiency; arrest (adult) (3 sources)Acute respiratory failure; Translations: [Acute respiratory failure with hypoxia]18-88-9939OhwgptsbRfmmzpaua and history of mental health and substance abuse codes (3 sources)Ex-smoker; Translations: [Personal history of nicotine dependence] 97-88-3879CeluhznfXzlnrhhmhadn (1 source)Diarrhea, unspecified; Translations: [Diarrhea, unspecified]Onset: 54-27-3477Luijmmivmnvj (1 source)Encounter for preprocedural laboratory examination; Translations: [Encounter for preprocedural laboratory examination]Onset: 03-01-2022 Unclassified (1 source)CONTACT W/AND (SUSP) EXPOS COVID-19; Translations: [CONTACT W/AND (SUSP) EXPOS COVID-19]Onset: 04-42-1958Vorexgyhhjbe (2 sources)Kidney Follow-up; Translations: [Kidney Follow-up]Onset: 12-02-2024 Past or Other Problems Problem ClassificationProblemDateDocumented DateEpisodic/ChronicAcute and unspecified renal failure (16 sources)Acute renal failure syndrome; Translations: [Acute kidney failure, unspecified]Onset: 04-27-2023 Resolved: 101422-69-6823HurkmrpyXzwzw and electrolyte disorders (2 sources)Hypo-osmolality and hyponatremia; Translations: [Hypo-osmolality and hyponatremia]Onset: 67-72-6636DjvpgqjjMpacxk and vomiting (3 sources)Nausea with vomiting, unspecified; Translations: [NAUSEA WITH VOMITING UNSPECIFIED]Onset: 86-29-3563IvtzakluLcqghebkcrvfe gastroenteritis (1 source)Noninfective gastroenteritis and colitis, unspecified; Translations: [NONINFECTIVE GE AND COLITIS UNS]Onset: 22-97-2262FdsfvrpbJbslg aftercare (1 source)Other senior living (current) drug therapy; Translations: [OTH SEMICONDUCTOR PROCESSOR CURRENT DRUG THERAPY]Onset: 60-54-6978NjofmxrvGgtsu gastrointestinal disorders (3 sources)Diarrhea, unspecified; Translations: [Diarrhea]Onset: 11-16-2021 Resolved: 32-94-5100HbvagvmyFjsbq gastrointestinal disorders (1 source)Fecal urgencyOnset: 01-21-2022 Resolved: 05-45-0055IjnqpclqYbhlg non-epithelial cancer of skin (20 sources)Basal cell carcinoma of dorsum of nose; Translations: [Basal cell carcinoma of skin of nose]Onset: 876854-81-9629SkoxobthPnmrlaqs; pneumothorax; pulmonary collapse (16 sources)Pleurisy with effusion; Translations: [Pleural effusion, not elsewhere classified]Onset: 472961-66-6745ClmwjulwSffnhyye codes; unclassified (16 sources)At risk for infection; Translations: [Personal history of immunosupression therapy]Onset: 951675-37-5138Dyeticgc Results Test NameValueInterpretationReference RangeFacilityBK virus DNA measurement by probe and target amplification method (number/volume)Ordered By: Naga Bosch on 65-86-0163DB virus DNA ISI+probe (Unsp spec) [#/Vol]TNP.[facility] HospitalBK virus DNA measurement by probe and target amplification method (units/volume)Ordered By: Naga Bosch on 74-43-3308BP virus DNA ISI+probe Qn (Unsp spec)NegativeNegativeOhio State East HospitalComment on above:No BK DNA detected.The linear range of the assay is 22 - 100,000,000 IU/mL.Performed at: [facility] [id number] [place], [place] [id number] Director: Toby Daley PhD, Phone: [phone] Auto (Bld) [#/Vol] Ordered By: Naga Bosch on 11-79-9354Twrxavlcx (Bld) [#/Vol]0.0 10 3/uL0.0-0.1 [facility] HospitalBasophils/100 WBC Auto (Bld)Ordered By: Naga Bosch on 92-18-5547Fpazekbnq/100 WBC (Bld)0.3 %0.2-2.0[facility] HospitalCholesterol in LDL Calc [Mass/Vol]Ordered By: Naga Bosch on 01-21-2025 Cholesterol in LDL [Mass/Vol]26.4 mg/dLOhio State East HospitalComment on above:<100 mg/dl PBHNLIO138-704 mg/dl NEAR OR ABOVE IQKTXDU251-133 mg/dl BORDERLINE YRRJ619-772 mg/dl HIGH>190 mg/dl VERY HIGHCholesterol in VLDL Calc [Mass/Vol]Ordered By: Naga Bosch on 93-45-7228Tsbzsopxcsc in VLDL [Mass/Vol]12.6 mg/dLOhio State East HospitalEosinophils/100 WBC Auto (Bld)Ordered By: Naga Bosch on 46-29-6677Ggbjcefbhpu/100 WBC (Bld)2.7 %0.9-7.0[facility] HospitalErythrocyte distribution width Auto (RBC) [Ratio]Ordered By: Naga Bosch on 69-36-9729Alwjcgsgkkf distribution width (RBC) [Ratio]13.8 % 11.0-15.0[facility] HospitalGlobulin Calc (S) [Mass/Vol]Ordered By: Naga Bosch on 87-07-1770Nwhelamz (S) [Mass/Vol]3.6 g/dLOhio State East HospitalGlomerular filtration rate (GFR) estimation in non- AmericanOrdered By: Naga Bosch on 96-12-7276CGX/1.73 sq M.predicted among non- blacks MDRD (S/P/Bld) [Vol rate/Area]mL/min/{1.73_m2}>=60 mL/min/1.73m 2 [facility] HospitalGlucose mean value [Mass/volume] in Blood Estimated from glycated hemoglobinOrdered By: Naga Bosch on 75-71-5847Vmyutdf glucose Estimated from glycated hemoglobin (Bld) [Mass/Vol]120 mg/dLOhio State East HospitalHematocrit Auto (Bld) [Volume fraction]Ordered By: Naga oBsch on 67-05-3124Etjrjzreni (Bld) [Volume fraction]34.3 %Low42.0-54.0[facility] HospitalHemoglobin A1c percentageOrdered By: Naga Bosch on 50-01-4540WfG9u (Bld) [Mass fraction]5.8 %4.5-6.2FKing's Daughters Medical Center OhioComment on above:ADA RECOMMENDED LIMIT 4.0 - 6.0ADA THERAPEUTIC TARGET < 7.0ACTION SUGGESTED> 7.0Hemoglobin [Mass/volume] in BloodOrdered By: Naga Bosch on 55-21-5896Qtttpbxvip (Bld) [Mass/Vol]11.0 g/dLLow14.0-18.0[facility] HospitalLaboratory - Chemistry and Chemistry - challengeOrdered By: Naga Bosch on 15-02-0611Wuzzmql [Mass/Vol]3.7 g/dL3.4-5.0[facility] HospitalALP [Catalytic activity/Vol]103 U/F43-694OqouofyapOhio State East Hospital ALT [Catalytic activity/Vol]20 U/K17-77JsylzqqdbOhio State East HospitalAST [Catalytic activity/Vol]18 U/X13-15KajtznnwfOhio State East HospitalBilirubin [Mass/Vol]0.3 mg/dL0.2-1.0[facility] HospitalBilirubin.direct [Mass/Vol]0.1 mg/dL0.0-0.2FKing's Daughters Medical Center OhioCalcium [Mass/Vol]8.5 mg/dL8.5-10.1FKing's [facility] OhioChloride [Moles/Vol]105 mmol/L 98-107[facility] HospitalCholesterol [Mass/Vol]81 mg/dL<=200 [facility] HospitalCholesterol in HDL [Mass/Vol]42 mg/dL40-60 [facility] HospitalComment on above:> or =60 mg/dl - LOW CARDIOVASCULAR RISK<40 mg/dl - HIGH CARDIOVASCULAR RISKCO2 [Moles/Vol]28.2 mmol/L21.0-32.0[facility] HospitalCreatinine [Mass/Vol]0.89 mg/dL 0.70-1.30[facility] HospitalGFR/1.73 sq M.predicted MDRD (S/P/Bld) [Vol rate/Area]mL/min/{1.73_m2}>=60 mL/min/1.73m 2FKing's Daughters Medical Center OhioGlucose [Mass/Vol]90 mg/mC12-402ZftnyxhiiOhio State East HospitalMagnesium [Mass/Vol]1.3 mg/dLLow1.8-2.4FKing's Daughters Medical Center OhioPotassium [Moles/Vol]4.4 mmol/L3.5-5.1FKing's Daughters Medical Center OhioProtein [Mass/Vol] 7.3 g/dL6.4-8.2FJ.W. Ruby Memorial Hospitalodium [Moles/Vol]141 mmol/L 136-145[facility] HospitalTriglyceride [Mass/Vol]63 mg/dL<=150 [facility] HospitalUrate [Mass/Vol]6.2 mg/dL3.5-7.2FKing's Daughters Medical Center OhioUrea nitrogen [Mass/Vol]11.0 mg/dL7.0-18.0[facility] HospitalUrea nitrogen/Creatinine [Mass ratio]12.4 mg/mgOhio State East HospitalLaboratory - Hematology and Cell countsOrdered By: Naga Bosch on 13-48-0926Nqvtnnct granulocytes/100 WBC (Bld)0.8 %High0.0-0.5FKing's Daughters Medical Center OhioLeukocytes [#/volume] corrected for nucleated erythrocytes in Blood by Automated counOrdered By: Naga Bosch on 73-77-9577VWE corrected for nucl RBC Auto (Bld) [#/Vol]6.3 10 3/uL4.0-11.0[facility] HospitalLymphocytes Auto (Bld) [#/Vol]Ordered By: Naga Bosch on 01-21-2025 Lymphocytes (Bld) [#/Vol]0.9 10 3/uLLow1.2-3.8[facility] Lymphocytes/100 WBC Auto (Bld)Ordered By: Naga Bosch on 01-21-2025 Lymphocytes/100 WBC (Bld)13.8 %Low20.5-60.0[facility]H Auto (RBC) [Entitic mass]Ordered By: Naga Bosch on 42-07-6354ZBT (RBC) [Entitic mass]28.4 pg25.9-34.0[facility] HospitalMCHC Auto (RBC) [Mass/Vol] Ordered By: Naga Bosch on 65-32-3705XMAF (RBC) [Mass/Vol]32.1 g/dL29.9-35.2 [facility] HospitalMCV Auto (RBC) [Entitic vol]Ordered By: Naga Bosch on 60-21-9832CDZ (RBC) [Entitic vol]88.4 fL80.0-94.0[facility] HospitalMonocytes Auto (Bld) [#/Vol]Ordered By: Naga Bosch on 01-21-2025 Monocytes (Bld) [#/Vol]0.5 10 3/uL0.3-0.8[facility] Monocytes/100 WBC Auto (Bld)Ordered By: Naga Bosch on 83-67-2286Pblbsmqbw/100 WBC (Bld)8.2 %1.7-12.0[facility] HospitalNeutrophils Auto (Bld) [#/Vol]Ordered By: Naga Bosch on 12-17-7645Mlgzieguhzp (Bld) [#/Vol]4.7 10 3/uL 1.4-6.5FKing's Daughters Medical Center OhioNeutrophils/100 WBC Auto (Bld)Ordered By: Naga Bosch on 59-34-2722Oxlkrddqwax/100 WBC (Bld)74.2 %43.0-75.0[facility] HospitalNo Panel InformationOrdered By: Naga Bosch on 01-21-2025 Eosinophils # (Auto)0.2 10 3/uL0.0-0.7FKing's Daughters Medical Center OhioImmature Granulocyte # (Auto)0.05 10 3/uLHigh0.00-0.03[facility] Phosphorus Level3.5 mg/dL2.6-4.7FJ.W. Ruby Memorial Hospitalex Hormone Binding Jihssfks23.4 nmol/L19.3-76.4FKing's Daughters Medical Center OhioComment on above:Performed at: [address] [id number] Director: Toby Daley PhD, Phone: [phone] mean volume Auto (Bld) [Entitic vol]Ordered By: Naga Bosch on 04-17-0724Zemexmnf mean volume (Bld) [Entitic vol]9.2 fLLow9.5-13.5FKing's Daughters Medical Center OhioPlatelets Auto (Bld) [#/Vol]Ordered By: Naga Bosch on 36-18-1287Bpgbtnffz (Bld) [#/Vol]352 10 3/fR971-921UoujdsnraOhio State East HospitalRBC Auto (Bld) [#/Vol]Ordered By: Naga Bosch on 53-26-2073ECP (Bld) [#/Vol]3.88 10 6/uLLow4.70-6.10[facility] Hospitalerum or plasma albumin/globulin mass ratioOrdered By: Naga Bosch on 32-68-9306Vahpehv/Globulin [Mass ratio]1.0 {ratio}[facility] Hospitalerum or plasma anion gap determinationOrdered By: Naga Bosch on 80-56-7325Usvpb gap [Moles/Vol]12.2 mmol/LFJ.W. Ruby Memorial Hospitalerum or plasma total cholesterol/high density lipoprotein (HDL) cholesterol mass ratOrdered By: Naga Bosch on 01-21-2025 Cholesterol.total/Cholesterol in HDL [Mass ratio]1.9 {ratio}[facility] HospitalComment on above:3.3 - 4.4 LOW RISK4.4 - 7.1 AVERAGE RISK7.1 - 11.0 MODERATE RISK>11.0 HIGH HGOG88cb85-42-703218Yaehvuye by: SHARON JIMENEZ on: 12/02/2024 03:55 PM Modules accepted: OrdersNormalUniversity of Valley Regional Medical Center3712-02-2024 37Patient with history of end stage renal disease, status post renal transplant, creatinine .85, with relatively stable graft function. Continue with Adequate hydration. Continue with monthly labs Immunosuppression - dose changes, if indicated, will be based on monthly laboratory testing result. HTN - blood pressure in clinic reviewed. Will ask patient to keep a log of blood pressures at home, contact [facility] transplant if blood pressure is persistently >140/90. Continue with current antihypertensive regimen Magnesium 800 mg tidNormalUnMercer County Community HospitalFollow-Upon [id number]-[id number] Roger Suarez 1950 M Date Provider Department Center 12/02/2024 5796-SABINA FUNES TXP None Family History Problem Relation Age of Onset Diabetes Mother Hypertension Mother Coronary artery disease Mother Other Mother Cystic kidney disease Mother Hypertension Father Skin cancer Father Cystic kidney disease Father Cystic kidney disease Sister Heart disease Brother ALS Brother Cystic kidney disease Brother Family Status - Relation Status Age at Mother Father Sister Brother Level of Service:52154 AR OFFICE/OUTPATIENT ESTABLISHED MOD MDM 30 MIN Reason for Visit and Comments: Kidney Follow-up []NormalUnMercer County Community HospitalALL CBC WITH AUTO DIFFon 23-68-5724XJKFWWQKC ABSOLUTE [id number] HealthcareBasophils/100 WBC (Bld)0.5 %0.2 - 2.0 %NOMS HealthcareEosinophils/100 WBC (Bld)3.8 %0.9 - 7.0 %NOMS HealthcareErythrocyte distribution width (RBC) [Ratio]14.1 %11.0 - 15.0 % NOMS HealthcareHematocrit (Bld) [Volume fraction]35.9 %Low42.0 - 54.0 %NOM HealthcareHemoglobin (Bld) [Mass/Vol]11.6 g/dLLow14.0 - 18.0 g/dLNOMissouri Baptist Hospital-Sullivan IMMATURE GRANULOCYTES ABS AUTO0.07HighNOMS HealthcareImmature granulocytes/100 WBC (Bld)0.9 %High0.0 - 0.5 %NOM HealthcareInterpretation and review of laboratory resultsAbnormalNOMS HealthcareLYMPHOCYTES ABSOLUTE AUTO0.9LowNOMS HealthcareLymphocytes/100 WBC (Bld)12.3 %Low20.5 - 60.0 %NOMCox SouthH (RBC) [Entitic mass]29.1 pg25.9 - 34.0 pgNOMissouri Baptist Hospital-SullivanMCHC (RBC) [Mass/Vol] 32.3 g/dL29.9 - 35.2 g/dLNOMissouri Baptist Hospital-SullivanMCV (RBC) [Entitic vol]90 fL80.0 - 94.0 fLNOSC HealthcareMONOCYTES ABSOLUTE AUTO0.6NOMS HealthcareMonocytes/100 WBC (Bld)8 %1.7 - 12.0 %NOMS HealthcareNEUTROPHILS ABSOLUTE AUTO5.7N[facility] Healthcare Neutrophils/100 WBC (Bld)74.5 %43.0 - 75.0 %NOMS HealthcarePlatelet mean volume (Bld) [Entitic vol]9.9 fL9.5 - 13.5 fLNOSC HealthcareTBH EO #0.3[facility] Healthcare TBH [id number] HealthcareTB RBC3.99LowNOSC HealthcareTB WBC7.7NOMS Healthcare CLINISYNCSTEWARD HEALTH CARE SYSTEM Lwajpmohvz65uf 27-92-976302Qqcjwppc labs completed, will mail once we get dr whitehead.[facility]36on Patient is calling back, would like order mailed to home. Thank [facility]36on [phone] is requesting an updated standing lab order to be mailed to his home. Address confirmed. Thank you This phone message was created by the Ambulatory float staff. If you need office support follow up regarding this patient, please make your appropriate clinic staff member aware. Thank you. [facility] ALL CBC WITH AUTO DIFFon 17-11-4286APGSUDYKS ABSOLUTE EHFK4FRXT Healthcare Basophils/100 WBC (Bld)0.7 %0.2 - 2.0 %NOMS HealthcareEosinophils/100 WBC (Bld)3 %0.9 - 7.0 %NOMS HealthcareErythrocyte distribution width (RBC) [Ratio]14.1 % 11.0 - 15.0 %NOMS HealthcareHematocrit (Bld) [Volume fraction]36.3 %Low42.0 - 54.0 %NOMS HealthcareHemoglobin (Bld) [Mass/Vol]11.7 g/dLLow14.0 - 18.0 g/dLNOSC HealthcareIMMATURE GRANULOCYTES ABS AUTO0.04HighNOMissouri Baptist Hospital-SullivanImmature granulocytes/100 WBC (Bld)0.7 %High0.0 - 0.5 %[facility] HealthcareInterpretation and review of laboratory resultsAbnormalNOMissouri Baptist Hospital-SullivanLYMPHOCYTES ABSOLUTE UPPA4Uqk NOM HealthcareLymphocytes/100 WBC (Bld)16.7 %Low20.5 - 60.0 %[facility] CenterH (RBC) [Entitic mass]29.1 pg25.9 - 34.0 pgSt. Louis VA Medical CenterHC (RBC) [Mass/Vol] 32.2 g/dL29.9 - 35.2 g/dLSt. Louis VA Medical CenterV (RBC) [Entitic vol]90.3 fL80.0 - 94.0 fLSt. Louis VA Medical CenterMONOCYTES ABSOLUTE AUTO0.4NOSC HealthcareMonocytes/100 WBC (Bld)6.8 %1.7 - 12.0 %NOM HealthcareNEUTROPHILS ABSOLUTE AUTO4.4NOMissouri Baptist Hospital-Sullivan Neutrophils/100 WBC (Bld)72.1 %43.0 - 75.0 %[facility] Medical CenterPlatelet mean volume (Bld) [Entitic vol]9.5 fL9.5 - 13.5 fLSt. Louis VA Medical CenterTB EO #0.2NOMS Healthcare TBH [id number] Baptist Hospital-SullivanTB RBC4.02LowNOMissouri Baptist Hospital-SullivanTB WBC6.1NOMS Healthcare CLINISYNCSTEWARD HEALTH CARE SYSTEM HealthcareFollow-Upon [id number] Roger Suarez 1950 M Date Provider Department Center 06/18/2024 [...] at Mother Father Sister Brother Level of Service:49247 AR OFFICE/OUTPATIENT ESTABLISHED MOD MDM 30 MIN () Reason for Visit and Comments: Kidney Follow-up [[id number]] - NO CONCERNSNormalUniversity of Valley Regional Medical CenterOffice Visiton [id number]-up [id number] Roger Suarez 1950 M Date Provider Department Center 06/09/2024 03728-QACGFN, ADAM ENRIQUE Kathi Hos Family History Problem Relation Age of Onset Diabetes Mother Hypertension Mother Coronary artery disease Mother Other Mother Cystic kidney disease Mother Hypertension Father Skin cancer Father Cystic kidney disease Father Cystic kidney disease Sister Heart disease Brother ALS Brother Cystic kidney disease Brother Family Status - Relation Status Age at Mother Father Sister Brother Level of Service:36049 AR OFFICE/OUTPATIENT ESTABLISHED LOW MDM [address] HospitalALL CBC WITH AUTO DIFFon 98-23-7696VAZNFGYSQ ABSOLUTE RURR2ZFYB HealthcareBasophils/100 WBC (Bld)0.9 %0.2 - 2.0 %NOMS HealthcareEosinophils/100 WBC (Bld)5.4 %0.9 - 7.0 %NOMS HealthcareErythrocyte distribution width (RBC) [Ratio]13.9 %11.0 - 15.0 %NOMS HealthcareHematocrit (Bld) [Volume fraction]35 %Low42.0 - 54.0 %NOM HealthcareHemoglobin (Bld) [Mass/Vol]11.2 g/dLLow14.0 - 18.0 g/dLNOSC HealthcareIMMATURE GRANULOCYTES ABS AUTO0.05HighNOMS HealthcareImmature granulocytes/100 WBC (Bld)1.5 %High0.0 - 0.5 %[facility] HealthcareInterpretation and review of laboratory resultsAbnormalNOSC HealthcareLYMPHOCYTES ABSOLUTE AUTO0.7LowNOMS HealthcareLymphocytes/100 WBC (Bld)22 %20.5 - 60.0 %[facility] CenterH (RBC) [Entitic mass]29.5 pg25.9 - 34.0 pgNOSaint Luke's North Hospital–SmithvilleHC (RBC) [Mass/Vol]32 g/dL29.9 - 35.2 g/dLNOSaint Luke's North Hospital–SmithvilleV (RBC) [Entitic vol]92.1 fL80.0 - 94.0 fLNOSC HealthcareMONOCYTES ABSOLUTE AUTO 0.5NOMS HealthcareMonocytes/100 WBC (Bld)15.2 %High1.7 - 12.0 %NOM Healthcare NEUTROPHILS ABSOLUTE AUTO1.9NOMS HealthcareNeutrophils/100 WBC (Bld)55 %43.0 - 75.0 %NOM HealthcarePlatelet mean volume (Bld) [Entitic vol]9.5 fL9.5 - 13.[address] [facility] EO #0.2NOMS [facility] [id number] [facility] RBC3.8Low [facility] WBC3.4LowSt. Louis VA Medical CenterCLINISYNCNSullivan County Memorial HospitalALL CBC WITH AUTO DIFFon 07-31-2722STKRUOSLB ABSOLUTE AUTO0.1NOMS HealthcareBasophils/100 WBC (Bld)0.7 %0.2 - 2.0 %NOMMissouri Rehabilitation CenterEosinophils/100 WBC (Bld)3.6 %0.9 - 7.0 % [facility] Medical CenterErythrocyte distribution width (RBC) [Ratio]14 %11.0 - 15.0 %[facility] CenterHematocrit (Bld) [Volume fraction]36 %Low42.0 - 54.0 %[facility] Hemoglobin (Bld) [Mass/Vol]11.7 g/dLLow14.0 - 18.0 g/dLSt. Louis VA Medical CenterIMMATURE GRANULOCYTES ABS AUTO0.04HighSt. Louis VA Medical CenterImmature granulocytes/100 WBC (Bld) 0.6 %High0.0 - 0.5 %[facility] CenterInterpretation and review of laboratory resultsAbnormalSt. Louis VA Medical CenterLYMPHOCYTES ABSOLUTE AUTO0.9LowSt. [facility] VA Medical Center Lymphocytes/100 WBC (Bld)13.9 %Low20.5 - 60.0 %[facility] CenterH (RBC) [Entitic mass]29.3 pg25.9 - 34.0 pgSt. Louis VA Medical CenterHC (RBC) [Mass/Vol]32.5 g/dL29.9 - 35.2 g/dLSt. Louis VA Medical CenterV (RBC) [Entitic vol]90.2 fL80.0 - 94.0 fLSt. Louis VA Medical CenterMONOCYTES ABSOLUTE AUTO0.6NOMissouri Baptist Hospital-SullivanMonocytes/100 WBC (Bld)8.2 % 1.7 - 12.0 %[facility] CenterNEUTROPHILS ABSOLUTE AUTO4.9NOMissouri Baptist Hospital-Sullivan Neutrophils/100 WBC (Bld)73 %43.0 - 75.0 %[facility] Medical CenterPlatelet mean volume (Bld) [Entitic vol]8.9 fLLow9.5 - 13.5 fLSt. [facility]ukes [facility] EO #0.2NOMS HealthcareTB [id number] HealthcareTB RBC3.99LowNOMS HealthcareTB WBC6.7NOMS HealthcareCLINISYNCNOMS Dlrtevujbp61lg 59-13-945078Lompukxtx echo result from 03/23/2024: MD Lurdes Stallings MA His echo overall was okay. He just needs a regular follow-up. Spoke with patient and scheduled him a follow up with Jennifer Egan CNP on 05/13/2024.[facility] HospitalCA ECHO DOPPLER COMPLETEon 93-65-3769GpyR[place] [address] Cardiology Report Signed Patient: ROGER SUAREZ MR#: [id number] : 1950 Acct:[id number] Age/Sex: 73 / M ADM Date: 03/23/24 Loc: CARD Attending Dr: BENJA MCGHEE Ordering Physician: BENJA MCGHEE Date of Service: 03/23/24 Procedure(s): CA echo doppler complete Accession Number(s): [id number] cc: BENJA MCGHEE; Jericho Mccarthy M.D. Patient Name: ROGER SUAREZ MR#: [id number] : 1950 Exam Date: 03/23/2024 Ordering Doctor: [...] Area (VTI): 2.50 cm2, 2.50 cm2 Deceleration Aurora: 0.67 m/s2 Pressure Half-Time: 1.17 s Peak [...] Gradient: 5.69 mm[Hg], 4.60 mm[Hg] Right Atrium (more content not included)...TBHRadiology, Radiologist, MD - 03/23/2024 [place] [address] Cardiology Report Signed Patient: ROGER SUAREZ MR#: [id number] : 1950 Acct:[id number] Age/Sex: 73 / M ADM Date: 03/23/24 Loc: CARD Attending Dr: BENJA MCGHEE Ordering Physician: BENJA MCGHEE Date of Service: 03/23/24 Procedure(s): CA echo doppler complete Accession Number(s): [id number] cc: BENJA MCGHEE; Jericho Mccarthy M.D. Patient Name: ROGER SUAREZ MR#: [id number] : 1950 Exam Date: 03/23/2024 Ordering Doctor: [...] Area (VTI): 2.50 cm2, 2.50 cm2 Deceleration Aurora: 0.67 m/s2 Pressure Half-Time: 1.17 s Peak [...] By: 03/23/24 1040 DD/ 1039 TD/TT: Senior Advisor: [facility] CenterRadiology Study observation (narrative)[facility] ECHO DOPPLER COMPLETEOrdered By: Radiologist Radiology on 68-54-1130GYVCSt. Louis VA Medical Center Work Phone: aLL CBC WITH AUTO DIFFon 76-35-1032VBKVEPZSJ ABSOLUTE LUIA2FSDI HealthcareBasophils/100 WBC (Bld)0.5 %0.2 - 2.0 %[facility] Eosinophils/100 WBC (Bld)2.7 %0.9 - 7.0 %[facility] Medical CenterErythrocyte distribution width (RBC) [Ratio]13.7 %11.0 - 15.0 %[facility] CenterHematocrit (Bld) [Volume fraction]36.6 %Low42.0 - 54.0 %[facility] CenterHemoglobin (Bld) [Mass/Vol]12.1 g/dLLow14.0 - 18.0 g/dLSt. Louis VA Medical CenterIMMATURE GRANULOCYTES ABS AUTO0.03NOMissouri Baptist Hospital-SullivanImmature granulocytes/100 WBC (Bld)0.5 %0.0 - 0.5 %[facility] Interpretation and review of laboratory resultsAbnormalNOMS Healthcare LYMPHOCYTES ABSOLUTE AUTO0.9LowNOMS HealthcareLymphocytes/100 WBC (Bld)13.3 %Low 20.5 - 60.0 %[facility] CenterH (RBC) [Entitic mass]29.3 pg25.9 - 34.0 pgNOSaint Luke's North Hospital–SmithvilleHC (RBC) [Mass/Vol]33.1 g/dL29.9 - 35.2 g/dLNOSaint Luke's North Hospital–SmithvilleV (RBC) [Entitic vol]88.6 fL80.0 - 94.0 fLNOSC HealthcareMONOCYTES ABSOLUTE AUTO0.5NOSC HealthcareMonocytes/100 WBC (Bld)7.7 %1.7 - 12.0 %NOMS HealthcareNEUTROPHILS ABSOLUTE [id number] HealthcareNeutrophils/100 WBC (Bld)75.3 %High43.0 - 75.0 % NOM HealthcarePlatelet mean volume (Bld) [Entitic vol]9.1 fLLow9.5 - 13.5 fL NOM HealthcareTBH EO #0.2NOMS HealthcareTBH [id number] [facility] HospitalTB RBC4.13Low NOMMissouri Rehabilitation CenterTB WBC6.6NOSC HealthcareCLINISYNCNOMS HealthcareDocumentationon [id number] Roger Suarez 1950 M Date Provider Department Center 03/11/2024 750MIT[place]LL BLACK None Family History Problem Relation Age of Onset Diabetes Mother Hypertension Mother Coronary artery disease Mother Other Mother Cystic kidney disease Mother Hypertension Father Skin cancer Father Cystic kidney disease Father Cystic kidney disease Sister Heart disease Brother ALS Brother Cystic kidney disease Brother Family Status - Relation Status Age at Mother Father Sister BrotherNormalUniversity of Valley Regional Medical Center29on [id number] by: SANTANA LANDIN on: 07/11/2024 11:41 PM Modules accepted: Level of ServiceNormalUniversity of Valley Regional Medical Center Follow-Upon [id number] Roger Suarez 1950 M Date Provider Department Center 02/11/2024 94790-INKNAQSSANTANA LANDIN TXP None Family History Problem Relation Age of Onset Diabetes Mother Hypertension Mother Coronary artery disease Mother Other Mother Cystic kidney disease Mother Hypertension Father Skin cancer Father Cystic kidney disease Father Cystic kidney disease Sister Heart disease Brother ALS Brother Cystic kidney disease Brother Family Status - Relation Status Age at Mother Father Sister Brother Level of Service:94386 AR OFFICE/OUTPATIENT ESTABLISHED MOD MDM 30 MIN Reason for Visit and Comments: Kidney Follow-up [] - Pt has no concerns at this time.[facility] HospitalALL CBC WITH AUTO DIFFon 52-20-0470OKPBDTINJ ABSOLUTE AUTO0.0NOMS HealthcareBasophils/100 WBC (Bld)0.6 %0.2 - 2.0 %[facility] Eosinophils/100 WBC (Bld)3.1 %0.9 - 7.0 %NOMMissouri Rehabilitation CenterErythrocyte distribution width (RBC) [Ratio]13.6 %11.0 - 15.0 %NOMMissouri Rehabilitation CenterHematocrit (Bld) [Volume fraction]36.0 %Low42.0 - 54.0 %NOMMissouri Rehabilitation CenterHemoglobin (Bld) [Mass/Vol]12.3 g/dLLow14.0 - 18.0 g/dLNOMissouri Baptist Hospital-SullivanIMMATURE GRANULOCYTES ABS AUTO0.01NOMS HealthcareImmature granulocytes/100 WBC (Bld)0.1 %0.0 - 0.5 %[facility] Interpretation and review of laboratory resultsAbnormalNOMissouri Baptist Hospital-Sullivan LYMPHOCYTES ABSOLUTE AUTO0.8LowNOMS [facility] HospitalLymphocytes/100 WBC (Bld)11.8 %Low 20.5 - 60.0 %[facility] CenterH (RBC) [Entitic mass]29.9 pg25.9 - 34.0 pgNOSaint Luke's North Hospital–SmithvilleHC (RBC) [Mass/Vol]34.2 g/dL29.9 - 35.2 g/dLNOSaint Luke's North Hospital–SmithvilleV (RBC) [Entitic vol]87.4 fL80.0 - 94.0 fLNOMissouri Baptist Hospital-SullivanMONOCYTES ABSOLUTE AUTO0.5NOMS HealthcareMonocytes/100 WBC (Bld)7.7 %1.7 - 12.0 %NOMS HealthcareNEUTROPHILS ABSOLUTE AUTO5.4NOMS HealthcareNeutrophils/100 WBC (Bld)76.7 %High43.0 - 75.0 % NOMMissouri Rehabilitation CenterPlatelet mean volume (Bld) [Entitic vol]9.4 fLLow9.5 - 13.5 fL NOMMissouri Rehabilitation CenterTB EO #0.2NOMS HealthcareTBH [id number] HealthcareTB RBC4.12Low NOMMissouri Rehabilitation CenterTB WBC7.1NOMS HealthcareCLINISYNCNOMS HealthcareOrders Onlyon 37-19-9207Ytnpzf [id number] ErickRoger Tyson 1950 M Date Provider Department Center 01/16/2024 66155-EIFMWYXSANTANA MARQUES None Family History Problem Relation Age of Onset Diabetes Mother Hypertension Mother Coronary artery disease Mother Other Mother Cystic kidney disease Mother Hypertension Father Skin cancer Father Cystic kidney disease Father Cystic kidney disease Sister Heart disease Brother ALS Brother Cystic kidney disease Brother Family Status - Relation Status Age at Mother Father Sister BrotherNormalUniversity of Valley Regional Medical CenterALL CBC WITH AUTO DIFFon 95-21-4534PEFSSKXTX ABSOLUTE AUTO0.0NOMS [facility] HospitalBasophils/100 WBC (Bld)0.5 % 0.2 - 2.0 %NOMMissouri Rehabilitation CenterEosinophils/100 WBC (Bld)6.0 %0.9 - 7.0 %[facility] Medical CenterErythrocyte distribution width (RBC) [Ratio]13.9 %11.0 - 15.0 %NOMMissouri Rehabilitation CenterHematocrit (Bld) [Volume fraction]35.3 %Low42.0 - 54.0 %[facility] CenterHemoglobin (Bld) [Mass/Vol]11.7 g/dLLow14.0 - 18.0 g/dLSt. [facility] Center IMMATURE GRANULOCYTES ABS AUTO0.03NOMS [facility] HospitalImmature granulocytes/100 WBC (Bld)0.5 %0.0 - 0.5 %[facility] CenterInterpretation and review of laboratory resultsAbnormalNOMissouri Baptist Hospital-SullivanLYMPHOCYTES ABSOLUTE AUTO0.9LowNOMS [facility] Lymphocytes/100 WBC (Bld)13.1 %Low20.5 - 60.0 %[facility] CenterH (RBC) [Entitic mass]29.8 pg25.9 - 34.0 pgNOSaint Luke's North Hospital–SmithvilleHC (RBC) [Mass/Vol]33.1 g/dL29.9 - 35.2 g/dLSt. Louis VA Medical CenterV (RBC) [Entitic vol]90.1 fL80.0 - 94.0 fLNOMS HealthcareMONOCYTES ABSOLUTE AUTO0.5NOMS HealthcareMonocytes/100 WBC (Bld)7.6 % 1.7 - 12.0 %NOMS HealthcareNEUTROPHILS ABSOLUTE AUTO4.7NOMS Healthcare Neutrophils/100 WBC (Bld)72.3 %43.0 - 75.0 %NOMS HealthcarePlatelet mean volume (Bld) [Entitic vol]9.3 fLLow9.5 - 13.5 fLNOMS HealthcareTBH EO #0.4NOMS HealthcareTBH [id number] HealthcareTBH RBC3.92LowNOMS HealthcareTBH WBC6.5NOMS HealthcareCLINISYNCNOMS FitwzduaemGE802 (TACROLIMUS) WHOLE BLOODon 10-06-2022 Tacrolimus (FK506), Blood3.8 ng/mLNormal2.0-20.0The [facility] Md, Cancer CenterComment on above:Result Comment: Trough (immediately following transplant) 15.0 . Trough (steady state, 2 weeks or more after transplant): 3.0 - 8.0 . Performed by LC-MS/MS technology.Performed By: #### URIC, CMP, LIPID, DBIL, PHOS, MG #### [facility] [address] [place] [address] Dr. Brea CauseyBILIRUBIN CONJUGATED (DIRECT)on 26-69-9696GTBB, CONJUGATED0.1 mg/dLNormal0.0-0.2The [facility] Md, Cancer CenterComment on above:Performed By: #### CBC #### [facility] [address] [place] [address] Dr. Brea Stanford AUTO DIFFon 99-84-9387ABCV #0.0 103/ulNormal0.0-0.1The [facility], Cancer CenterComment on above:Performed By: #### URIC, CMP, LIPID, DBIL, PHOS, MG #### [facility] [address] [place] [address] Dr. Brea CauseyBasophils/100 WBC (Bld)0.5 %Normal0.2-2.0[facility] Comment on above:Performed By: #### URIC, CMP, LIPID, DBIL, PHOS, MG #### [facility] [address] [place] [address] Dr. Brea Domingo #0.1 103/ulNormal0.0-0.7The [facility] Md, Cancer CenterComment on above: Performed By: #### URIC, CMP, LIPID, DBIL, PHOS, MG #### [facility] [address] [place] [address] Dr. Brea Napolesosinophils/100 WBC (Bld)2.3 %Normal0.9-7.0[facility] Comment on above:Performed By: #### URIC, CMP, LIPID, DBIL, PHOS, MG #### [facility] [address] [place] [address] Dr. Brea Napolesrythrocyte distribution width (RBC) [Ratio]13.2 %Nlffah54.0-15.0 The [facility], Cancer CenterComment on above:Performed By: #### URIC, CMP, LIPID, DBIL, PHOS, MG #### [facility] [address] [place] [address] Dr. Brea CauseyHematocrit (Bld) [Volume fraction]35.0 %Critically low42.0-54.0 [facility]:Performed By: #### URIC, CMP, LIPID, DBIL, PHOS, MG #### [facility] [address] [place] [address] Dr. Brea CauseyHemoglobin (Bld) [Mass/Vol]11.7 g/dLCritically low14.0-18.0[facility] above:Performed By: #### URIC, CMP, LIPID, DBIL, PHOS, MG #### [facility] [address] [place] [address] Dr. Brea Monreal #0.06 10e3/ulCritically high0.00-0.03The [facility] Comment on above:Performed By: #### URIC, CMP, LIPID, DBIL, PHOS, MG #### [facility] [address] [place] [address] Dr. Brea Monreal %1.1 %Critically high0.0-0.5The [facility], Cancer CenterComment on above:Performed By: #### URIC, CMP, LIPID, DBIL, PHOS, MG #### [facility] [address] [address] [address] Brea Hopkins #0.8 103/ulCritically low1.2-3.8The [facility] Comment on above:Performed By: #### URIC, CMP, LIPID, DBIL, PHOS, MG #### [facility] [address] [place] [address] Dr. Brea Cheathamhocytes/100 WBC (Bld)14.9 %Critically low20.5-60.0The [facility], [facility] CenterComment on above:Performed By: #### URIC, CMP, LIPID, DBIL, PHOS, MG #### [facility] [address] [place] [address] Dr. Brea Velazquez DIFF REQNONormalThe [facility], [facility] CenterComment on above: Performed By: #### URIC, CMP, LIPID, DBIL, PHOS, MG #### [facility] [address] [place] [address] Dr. Brea Freire (RBC) [Entitic mass]28.8 txYidnbj48.9-34.0The [facility], [facility] CenterComment on above:Performed By: #### URIC, CMP, LIPID, DBIL, PHOS, MG #### [facility] [address] [place] [address] Dr. Brea Freire (RBC) [Mass/Vol]33.4 g/nSHpvema92.9-35.2The [facility] CenterComment on above:Performed By: #### URIC, CMP, LIPID, DBIL, PHOS, MG #### [facility] [address] [place] [address] Dr. Brea Freire (RBC) [Entitic vol]86.2 iIVqnxlw68.0-94.0The [facility] Hospitalment on above:Performed By: #### URIC, CMP, LIPID, DBIL, PHOS, MG #### [facility] [address] [place] [address] Dr. Brea Molina #0.5 103/ulNormal0.3-0.8The [facility] CenterComment on above:Performed By: #### URIC, CMP, LIPID, DBIL, PHOS, MG #### [facility] [address] [place] [address] Dr. Brea Krishnanocytes/100 WBC (Bld)9.1 %Normal1.7-12.0The [facility] Comment on above:Performed By: #### URIC, CMP, LIPID, DBIL, PHOS, MG #### [facility] [address] [place] [address] Dr. Brea Lewis #4.1 103/ulNormal1.4-6.5The [facility] CenterComment on above:Performed By: #### URIC, CMP, LIPID, DBIL, PHOS, MG #### [facility] [address] [place] [address] Dr. Brea Doutrophils/100 WBC (Bld)72.1 %Metuts82.0-75.0The [facility] Hospitalment on above:Performed By: #### URIC, CMP, LIPID, DBIL, PHOS, MG #### [facility] [address] [place] [address] Dr. Brea Mahmood mean volume (Bld) [Entitic vol]9.0 fLCritically low 9.5-13.5The [facility], [facility] CenterComment on above:Performed By: #### URIC, CMP, LIPID, DBIL, PHOS, MG #### [facility] [address] [place] [address] Dr. Brea CauseyPLT211 103/qdDydogi278-249Ocx [facility] CenterComment on above: Performed By: #### URIC, CMP, LIPID, DBIL, PHOS, MG #### [facility] [address] [place] [address] Dr. Brea CauseyRBC4.06 106/ulCritically low4.70-6.10The [facility] CenterComment on above:Performed By: #### URIC, CMP, LIPID, DBIL, PHOS, MG #### [facility] [address] [address] [address] Brea CauseyWBC5.6 103/ulNormal4.0-11.0The [facility], [facility] CenterComment on above: Performed By: #### URIC, CMP, LIPID, DBIL, PHOS, MG #### [facility] [address] [address] [address] Brea CauseyLIPID PROFILEon 12-92-7783BSJJ-HDL RATIO NORMSEE BELOWParkview Health Montpelier HospitalComment on above:Result Comment: 3.3 - 4.4 LOW RISK 4.4 - 7.1 AVERAGE RISK 7.1 - 11.0 MODERATE RISK >11.0 HIGH RISKPerformed By: #### CBC #### [facility] [address] [place] [address] Dr. Brea CauseyCholesterol [Mass/Vol]93 mg/dLNormal<=200The [facility] Comment on above:Performed By: #### CBC #### [facility] [address] [place] [address] Dr. Brea Reynosoesterol in HDL [Mass/Vol]43 mg/fBUxvkzl30-10Iht [facility] CenterComment on above:Performed By: #### CBC #### [facility] [address] [place] [address] Dr. Brea CauseyCholesterol in LDL [Mass/Vol]37.6 mg/dLParkview Health Montpelier HospitalComment on above:Performed By: #### CBC #### [facility] [address] [place] [address] Dr. Brea Reynosoesterjuan antonio.total/Cholesterol in HDL [Mass ratio]2.2 {ratio} NormalThe [facility] CenterComment on above:Performed By: #### CBC #### [facility] [address] [place] [address] Dr. Brea CauseyHDL NORMAL> or = 60 mg/dl - LOW CARDIOVASCULAR RISK <40 mg/dl - HIGH CARDIOVASCULAR RISKParkview Health Montpelier HospitalComment on above:Performed By: #### CBC #### [facility] [address] [address] [address] Brea CauseyLDL CALC NORMALSEE BELOWNoUniversity Hospitals Lake West Medical CenterComment on above:Result Comment: <100 mg/dl OPTIMAL 100 - 129 mg/dl NEAR OR ABOVE OPTIMAL 130 - 159 mg/dl BORDERLINE HIGH 160 - 189 mg/dl HIGH >190 mg/dl VERY HIGH Performed By: #### CBC #### [facility] [address] [address] [address] Brea CauseyTriglyceride [Mass/Vol]62 mg/dLNormal<=150The [facility] Comment on above:Performed By: #### CBC #### [facility] [address] [place] [address] Dr. Brea aCuseyVLDL CALC12.4 mg/dLNoUniversity Hospitals Lake West Medical CenterComment on above: Performed By: #### CBC #### [facility] [address] [place] [address] Dr. Brea CauseyMAGNESIUMon 35-93-5213Cchhhjivb [Mass/Vol]1.5 mg/dLCritically low 1.8-2.4The [facility] CenterComment on above:Performed By: #### CBC #### [facility] [address] [place] [address] Dr. Brea CauseyPHOSPHORUSon 87-93-0431Rtdbapmwf [Mass/Vol]4.4 mg/dLNormal2.6-4.7 The [facility], [facility] CenterComment on above:Performed By: #### CBC #### [facility] [address] [place] [address] Dr. Brea CauseyPROF 14(COMP METB)on 13-71-5519Uzzdzly [Mass/Vol]3.8 g/dLNormal 3.4-5.0The [facility] CenterComment on above:Performed By: #### CBC #### [facility] [address] [place] [address] Dr. Brea CauseyAlbumin/Globulin [Mass ratio]1.1 {ratio}NormalThe [facility] CenterComment on above:Performed By: #### CBC #### [facility] [address] [address] [address] Brea BlumP [Catalytic activity/Vol]190 U/LCritically yepp34-213Kji [facility] CenterComment on above:Performed By: #### CBC #### [facility] [address] [place] [address] Dr. Brea BlumT [Catalytic activity/Vol]26 U/VIdqyqn58-08How [facility] CenterComment on above:Performed By: #### CBC #### [facility] [address] [place] [address] Dr. Brea Vieira gap [Moles/Vol]15.3 mmol/LNormalSt. Rita'S Hospital Comment on above:Performed By: #### CBC #### [facility] [address] [place] [address] Dr. Brea CauseyAST [Catalytic activity/Vol]23 U/RYtfmpy33-11Xqr [facility] CenterComselect specialty hospital on above:Performed By: #### CBC #### [facility] [address] [place] [address] Dr. Brea CauseyBilirubin [Mass/Vol]0.4 mg/dLNormal0.2-1.0[facility] Comment on above:Performed By: #### CBC #### [facility] [address] [place] [address] Dr. Brea CauseyCalcium [Mass/Vol]7.8 mg/dLCritically low8.5-10.1The [facility] CenterComment on above:Performed By: #### CBC #### [facility] [address] [place] [address] Dr. Brea CauseyChloride [Moles/Vol]97 mmol/LCritically aok56-321Lrb [facility] CenterComselect specialty hospital on above:Performed By: #### CBC #### [facility] [address] [place] [address] Dr. Brea CauseyCO2 [Moles/Vol]25.6 mmol/LBggpuf36.0-32.0The [facility] Comment on above:Performed By: #### CBC #### [facility] [address] [place] [address] Dr. Brea CauseyCreatinine [Mass/Vol]1.03 mg/dLNormal0.70-1.30The [facility] CenterComment on above:Performed By: #### CBC #### [facility] [address] [place] [address] Dr. Brea NapolesGFR-AF SERBIAN>60Normal>=60The [facility], [facility] CenterComment on above:Performed By: #### CBC #### [facility] [address] [address] [address] Brea NapolesGFR-NON AF SERBIAN>60Normal>=60The [facility] CenterComment on above:Performed By: #### CBC #### [facility] [address] [place] [address] Dr. Brea CauseyGlobulin (S) [Mass/Vol]3.6 g/dLNormalThe [facility] CenterComment on above:Performed By: #### CBC #### [facility] [address] [place] [address] Dr. Brea CauseyGlucose [Mass/Vol]188 mg/dLCritically tigo92-989Nay [facility] CenterComment on above:Performed By: #### CBC #### [facility] [address] [place] [address] Dr. Brea CauseyPotassium [Moles/Vol]4.9 mmol/LNormal3.5-5.1The [facility] Comment on above:Performed By: #### CBC #### [facility] [address] [place] [address] Dr. Brea CauseyProtein [Mass/Vol]7.4 g/dLNormal6.4-8.2The [facility] Comment on above:Performed By: #### CBC #### [facility] [address] [place] [address] Dr. Brea CauseySodium [Moles/Vol]133 mmol/LCritically atq687-031Ean [facility] CenterComment on above:Performed By: #### CBC #### [facility] [address] [place] [address] Dr. Brea CauseyUrea nitrogen [Mass/Vol]11.0 mg/dLNormal7.0-18.0The [facility] Hospitalment on above:Performed By: #### CBC #### [facility] [address] [place] [address] Dr. Brea CauseyUrea nitrogen/Creatinine [Mass ratio]10.7 mg/mgNormSt. Rita's HospitalComselect specialty hospital on above:Performed By: #### CBC #### [facility] [address] [place] [address] Dr. Brea CauseyURIC ACID SERUMon 88-15-2874Nadte [Mass/Vol]5.7 mg/dLNormal 3.5-7.2The [facility] on above:Performed By: #### CBC #### [facility] [address] [place] [address] Dr. Brea CauseyBK VIRUS PCR QUANTon [id number] DNA QUANT PCR PLASMANegative NormalNegativeThe [facility] on above:Result Comment: No BK DNA detected. . The linear range of the assay is 22 - 100,000,000 IU/mL.Performed By: #### URIC, CMP, LIPID, DBIL, PHOS, MG #### [facility] [address] [place] [address] Dr. Brea CauseyLog10 BKV DNA PlasmaNoUniversity Hospitals Lake West Medical CenterComment on above: Performed By: #### URIC, CMP, LIPID, DBIL, PHOS, MG #### [facility] [address] [place] [address] Dr. Brea CauseyFK506 (TACROLIMUS) WHOLE BLOODon 88-35-8279Gfrgnxibgx (FK506), Blood3.8 ng/mLNormal2.0-20.0The [facility] on above:Result Comment: Trough (immediately following transplant) 15.0 . Trough (steady state, 2 weeks or more after transplant): 3.0 - 8.0 . Performed by LC-MS/MS technology.Performed By: #### URIC, CMP, LIPID, DBIL, PHOS, MG #### [facility] [address] [place] [address] Dr. Brea CauseyTESTOSTERONE, FREE,DIRECT, TOTALon 62-64-3540Ogse Testosterone(Direct)9.7 pg/mLNormal6.6-18.1The [facility] CenterComment on above:Result Comment: Performed at: BNPerformed By: #### URIC, CMP, LIPID, DBIL, PHOS, MG #### [facility] [address] [address] [address] Brea CauseyTestosterone [Mass/Vol]565 ng/oPSssjzr242-891Pnq [facility] CenterComment on above:Result Comment: Adult male reference interval is based on a population of healthy nonobese males (BMI <30) between 19 and 39 years old. Steven et.al. JCEM 2017,102;0802-7204. PMID: [id number]. Performed at: CBPerformed By: #### URIC, CMP, LIPID, DBIL, PHOS, MG #### [facility] [address] [place] [address] Dr. Brea CauseyBILIRUBIN CONJUGATED (DIRECT)on 70-19-7287ENBS, CONJUGATED0.1 mg/dLNormal0.0-0.2The [facility] CenterComment on above:Performed By: #### URIC, CMP, LIPID, DBIL, PHOS, MG #### [facility] [address] [place] [address] Dr. Brea StanfordC AUTO DIFFon [id number] #0.0 103/ulNormal0.0-0.1The [facility] CenterComment on above:Performed By: #### URIC, CMP, LIPID, DBIL, PHOS, MG #### [facility] [address] [address] [address] Brea CauseyBasophils/100 WBC (Bld)0.7 %Normal0.2-2.0The [facility] Comment on above:Performed By: #### URIC, CMP, LIPID, DBIL, PHOS, MG #### [facility] [address] [place] [address] Dr. Guidry ChangEDenise #0.2 103/ulNormal0.0-0.7The [facility] CenterComment on above: Performed By: #### URIC, CMP, LIPID, DBIL, PHOS, MG #### [facility] [address] [place] [address] Dr. Brea Napolesosinophils/100 WBC (Bld)3.6 %Normal0.9-7.0[facility] Comment on above:Performed By: #### URIC, CMP, LIPID, DBIL, PHOS, MG #### [facility] [address] [place] [address] Dr. Brea Napolesrythrocyte distribution width (RBC) [Ratio]13.2 %Qyksxa47.0-15.0 The [facility], [facility] CenterComment on above:Performed By: #### URIC, CMP, LIPID, DBIL, PHOS, MG #### [facility] [address] [place] [address] Dr. Brea CauseyHematocrit (Bld) [Volume fraction]36.0 %Critically low42.0-54.0 The [facility], [facility] CenterComment on above:Performed By: #### URIC, CMP, LIPID, DBIL, PHOS, MG #### [facility] [address] [place] [address] Dr. Brea CauseyHemoglobin (Bld) [Mass/Vol]12.2 g/dLCritically low14.0-18.0The [facility] CenterComment on above:Performed By: #### URIC, CMP, LIPID, DBIL, PHOS, MG #### [facility] [address] [place] [address] Dr. Brea Monreal #0.07 10e3/ulCritically high0.00-0.03The [facility] Comment on above:Performed By: #### URIC, CMP, LIPID, DBIL, PHOS, MG #### [facility] [address] [place] [address] Dr. Brea Monreal %1.2 %Critically high0.0-0.5The [facility] CenterComment on above:Performed By: #### URIC, CMP, LIPID, DBIL, PHOS, MG #### [facility] [address] [address] [address] Brea Hopkins #0.9 103/ulCritically low1.2-3.8The [facility] Comment on above:Performed By: #### URIC, CMP, LIPID, DBIL, PHOS, MG #### [facility] [address] [place] [address] Dr. Brea Cheathamhocytes/100 WBC (Bld)15.0 %Critically low20.5-60.0The [facility] CenterComment on above:Performed By: #### URIC, CMP, LIPID, DBIL, PHOS, MG #### [facility] [address] [place] [address] Dr. Brea Velazquez DIFF REQNONormalThe [facility] CenterComment on above: Performed By: #### URIC, CMP, LIPID, DBIL, PHOS, MG #### [facility] [address] [place] [address] Dr. Brea Freire (RBC) [Entitic mass]29.4 yhIdjvjg36.9-34.0The [facility], Cancer CenterComment on above:Performed By: #### URIC, CMP, LIPID, DBIL, PHOS, MG #### [facility] [address] [place] [address] Dr. Brea Freire (RBC) [Mass/Vol]33.9 g/kGXcfmuk58.9-35.2The [facility] CenterComment on above:Performed By: #### URIC, CMP, LIPID, DBIL, PHOS, MG #### [facility] [address] [place] [address] Dr. Brea Freire (RBC) [Entitic vol]86.7 vHObwnov77.0-94.0The [facility] CenterComment on above:Performed By: #### URIC, CMP, LIPID, DBIL, PHOS, MG #### [facility] [address] [place] [address] Dr. Brea Molina #0.5 103/ulNormal0.3-0.8The [facility] Cancer CenterComment on above:Performed By: #### URIC, CMP, LIPID, DBIL, PHOS, MG #### [facility] [address] [address] [address] Brea Krishnanocytes/100 WBC (Bld)9.0 %Normal1.7-12.0The [facility] Comment on above:Performed By: #### URIC, CMP, LIPID, DBIL, PHOS, MG #### [facility] [address] [place] [address] Dr. Brea Lewis #4.2 103/ulNormal1.4-6.5The [facility] CenterComment on above:Performed By: #### URIC, CMP, LIPID, DBIL, PHOS, MG #### [facility] [address] [place] [address] Dr. Brea Doutrophils/100 WBC (Bld)70.5 %Kmcsna39.0-75.0The [facility] CenterComment on above:Performed By: #### URIC, CMP, LIPID, DBIL, PHOS, MG #### [facility] [address] [place] [address] Dr. Brea CauseyPlatelet mean volume (Bld) [Entitic vol]8.7 fLCritically low 9.5-13.5The [facility] CenterComment on above:Performed By: #### URIC, CMP, LIPID, DBIL, PHOS, MG #### [facility] [address] [place] [address] Dr. Brea CauseyPLT247 103/ipHgsvse521-888Tap [facility] CenterComment on above: Performed By: #### URIC, CMP, LIPID, DBIL, PHOS, MG #### [facility] [address] [place] [address] Dr. Brea CauseyRBC4.15 106/ulCritically low4.70-6.10The [facility], Cancer CenterComment on above:Performed By: #### URIC, CMP, LIPID, DBIL, PHOS, MG #### [facility] [address] [place] [address] Dr. Brea CauseyWBC5.9 103/ulNormal4.0-11.0The [facility] Cancer CenterComment on above: Performed By: #### URIC, CMP, LIPID, DBIL, PHOS, MG #### [facility] [address] [place] [address] Dr. Brea CauseyGLYCOHEMOGLOBIN A1Con [id number] RECOMMENDATIONSEE BELOWUpper Valley Medical CenterComment on above:Result Comment: ADA RECOMMENDED LIMIT 4.0 - 6.0 ADA THERAPEUTIC TARGET < 7.0 ACTION SUGGESTED > 7.0Performed By: #### URIC, CMP, LIPID, DBIL, PHOS, MG #### [facility] [address] [place] [address] Dr. Brea CauseyGlucose [Mass/Vol]177 mg/dLNoUniversity Hospitals Lake West Medical CenterComment on above:Performed By: #### URIC, CMP, LIPID, DBIL, PHOS, MG #### [facility] [address] [place] [address] Dr. Brea CauseyHbA1c (Bld) [Mass fraction]7.8 %Critically high4.5-6.2St[facility]'S HospitalComment on above:Performed By: #### URIC, CMP, LIPID, DBIL, PHOS, MG #### [facility] [address] [place] [address] Dr. Brea CauseyLIPID PROFILEon [id number]-HDL RATIO NORMSEE [facility] HospitalComselect specialty hospital on above:Result Comment: 3.3 - 4.4 LOW RISK 4.4 - 7.1 AVERAGE RISK 7.1 - 11.0 MODERATE RISK >11.0 HIGH RISKPerformed By: #### URIC, CMP, LIPID, DBIL, PHOS, MG #### [facility] [address] [place] [address] Dr. Brea CauseyCholesterol [Mass/Vol]96 mg/dLNormal<=200The [facility] Comment on above:Performed By: #### URIC, CMP, LIPID, DBIL, PHOS, MG #### [facility] [address] [place] [address] Dr. Brea CauseyCholesterol in HDL [Mass/Vol]48 mg/bIYsmdtd21-80KauCleveland Clinicment on above:Performed By: #### URIC, CMP, LIPID, DBIL, PHOS, MG #### [facility] [address] [place] [address] Dr. Brea CauseyCholesterol in LDL [Mass/Vol]40.2 mg/dLNoUniversity Hospitals Lake West Medical CenterComment on above:Performed By: #### URIC, CMP, LIPID, DBIL, PHOS, MG #### [facility] [address] [place] [address] Dr. Brea Joseph.total/Cholesterol in HDL [Mass ratio]2.0 {ratio} NormalThe [facility] Cancer CenterComselect specialty hospital on above:Performed By: #### URIC, CMP, LIPID, DBIL, PHOS, MG #### [facility] [address] [place] [address] Dr. Brea Padilla NORMAL> or = 60 mg/dl - LOW CARDIOVASCULAR RISK <40 mg/dl - HIGH CARDIOVASCULAR RISKParkview Health Montpelier HospitalComment on above:Performed By: #### URIC, CMP, LIPID, DBIL, PHOS, MG #### [facility] [address] [place] [address] Dr. Brea Culp CALC NORMALSEE BELOWParkview Health Montpelier HospitalComment on above:Result Comment: <100 mg/dl OPTIMAL 100 - 129 mg/dl NEAR OR ABOVE OPTIMAL 130 - 159 mg/dl BORDERLINE HIGH 160 - 189 mg/dl HIGH >190 mg/dl VERY HIGH Performed By: #### URIC, CMP, LIPID, DBIL, PHOS, MG #### [facility] [address] [place] [address] Dr. Brea CauseyTriglyceride [Mass/Vol]39 mg/dLNormal<=150[facility] Comment on above:Performed By: #### URIC, CMP, LIPID, DBIL, PHOS, MG #### [facility] [address] [place] [address] Dr. Brea BlancoLDL CALC7.8 mg/dLNormalThe Forgan HospitalComment on above: Performed By: #### URIC, CMP, LIPID, DBIL, PHOS, MG #### [facility] [address] [place] [address] Dr. Brea CauseyMAGNESIUMon [id number] [Mass/Vol]1.5 mg/dLCritically low 1.8-2.4The [facility], [facility] CenterComment on above:Performed By: #### URIC, CMP, LIPID, DBIL, PHOS, MG #### [facility] [address] [place] [address] Dr. Brea CauseyPHOSPHORUSon [id number] [Mass/Vol]4.0 mg/dLNormal2.6-4.7 The [facility], [facility] CenterComment on above:Performed By: #### URIC, CMP, LIPID, DBIL, PHOS, MG #### [facility] [address] [place] [address] Dr. Brea CauseyPROF 14(COMP METB)on [id number] [Mass/Vol]3.8 g/dLNormal 3.4-5.0The [facility] CenterComment on above:Performed By: #### URIC, CMP, LIPID, DBIL, PHOS, MG #### [facility] [address] [place] [address] Dr. Brea CauseyAlbumin/Globulin [Mass ratio]1.1 {ratio}NormalThe [facility] CenterComment on above:Performed By: #### URIC, CMP, LIPID, DBIL, PHOS, MG #### [facility] [address] [place] [address] Dr. Brea Guzman [Catalytic activity/Vol]177 U/LCritically ayoz06-210Tho [facility] Hospitalment on above:Performed By: #### URIC, CMP, LIPID, DBIL, PHOS, MG #### [facility] [address] [place] [address] Dr. Brea Diaz [Catalytic activity/Vol]27 U/AKjckky14-72Avb [facility] CenterComment on above:Performed By: #### URIC, CMP, LIPID, DBIL, PHOS, MG #### [facility] [address] [address] [address] Brea Vieira gap [Moles/Vol]12.1 mmol/LNormalThe [facility] Comment on above:Performed By: #### URIC, CMP, LIPID, DBIL, PHOS, MG #### [facility] [address] [place] [address] Dr. Brea CauseyAST [Catalytic activity/Vol]19 U/ZNthgdh09-73Mes [facility] CenterComment on above:Performed By: #### URIC, CMP, LIPID, DBIL, PHOS, MG #### [facility] [address] [place] [address] Dr. Brea CauseyBilirubin [Mass/Vol]0.3 mg/dLNormal0.2-1.0[facility] Comment on above:Performed By: #### URIC, CMP, LIPID, DBIL, PHOS, MG #### [facility] [address] [place] [address] Dr. Brea CauseyCalcium [Mass/Vol]8.0 mg/dLCritically low8.5-10.1The [facility] CenterComment on above:Performed By: #### URIC, CMP, LIPID, DBIL, PHOS, MG #### [facility] [address] [place] [address] Dr. Brea CauseyChloride [Moles/Vol]96 mmol/LCritically izv14-882Acd [facility] CenterComment on above:Performed By: #### URIC, CMP, LIPID, DBIL, PHOS, MG #### [facility] [address] [place] [address] Dr. Brea CauseyCO2 [Moles/Vol]28.0 mmol/WStbyzb34.0-32.0The [facility] Comment on above:Performed By: #### URIC, CMP, LIPID, DBIL, PHOS, MG #### [facility] [address] [place] [address] Dr. Brea CauseyCreatinine [Mass/Vol]1.07 mg/dLNormal0.70-1.30The [facility] Hospitalment on above:Performed By: #### URIC, CMP, LIPID, DBIL, PHOS, MG #### [facility] [address] [place] [address] Dr. Brea NapolesGFR-AF SERBIAN>60Normal>=60The [facility] Hospitalment on above:Performed By: #### URIC, CMP, LIPID, DBIL, PHOS, MG #### [facility] [address] [place] [address] Dr. Brea NapolesGFR-NON AF SERBIAN>60Normal>=60[facility]ment on above:Performed By: #### URIC, CMP, LIPID, DBIL, PHOS, MG #### [facility] [address] [place] [address] Dr. Brea CauseyGlobulin (S) [Mass/Vol]3.5 g/dLNormalThe [facility] CenterComment on above:Performed By: #### URIC, CMP, LIPID, DBIL, PHOS, MG #### [facility] [address] [place] [address] Dr. Brea CauseyGlucose [Mass/Vol]179 mg/dLCritically xhug62-504Ehk [facility] on above:Performed By: #### URIC, CMP, LIPID, DBIL, PHOS, MG #### [facility] [address] [place] [address] Dr. Brea CauseyPotassium [Moles/Vol]5.1 mmol/LNormal3.5-5.1The [facility] Comment on above:Performed By: #### URIC, CMP, LIPID, DBIL, PHOS, MG #### [facility] [address] [place] [address] Dr. Brea CauseyProtein [Mass/Vol]7.3 g/dLNormal6.4-8.2The [facility] Comment on above:Performed By: #### URIC, CMP, LIPID, DBIL, PHOS, MG #### [facility] [address] [place] [address] Dr. Brea CauseySodium [Moles/Vol]131 mmol/LCritically wxg804-145Xsd [facility] Hospitalment on above:Performed By: #### URIC, CMP, LIPID, DBIL, PHOS, MG #### [facility] [address] [place] [address] Dr. Brea CauseyUrea nitrogen [Mass/Vol]10.0 mg/dLNormal7.0-18.0The [facility] CenterComment on above:Performed By: #### URIC, CMP, LIPID, DBIL, PHOS, MG #### [facility] [address] [place] [address] Dr. Brea CauseyUrea nitrogen/Creatinine [Mass ratio]9.3 mg/mgNormalThe [facility] CenterComment on above:Performed By: #### URIC, CMP, LIPID, DBIL, PHOS, MG #### [facility] [address] [place] [address] Dr. Brea CauseyURIC ACID SERUMon [id number] [Mass/Vol]6.0 mg/dLNormal 3.5-7.2The [facility] CenterComment on above:Performed By: #### URIC, CMP, LIPID, DBIL, PHOS, MG #### [facility] [address] [place] [address] Dr. Brea CauseyFK506 (TACROLIMUS) WHOLE BLOODon [id number] (FK506), Blood3.2 ng/mLNormal2.0-20.0The [facility] Hospitalment on above:Result Comment: Trough (immediately following transplant) 15.0 . Trough (steady state, 2 weeks or more after transplant): 3.0 - 8.0 . Performed by LC-MS/MS technology.Performed By: #### CBC #### [facility] [address] [place] [address] Dr. Brea CauseyBILIRUBIN CONJUGATED (DIRECT)on [id number], CONJUGATED0.1 mg/dLNormal0.0-0.2The [facility] Hospitalment on above:Performed By: #### URIC, CMP, LIPID, DBIL, PHOS, MG #### [facility] [address] [place] [address] Dr. Brea Reis AUTO DIFFon [id number] #0.0 103/ulNormal0.0-0.1The [facility], [facility] CenterComment on above:Performed By: #### CBC #### [facility] [address] [address] [address] Brea CauseyBasophils/100 WBC (Bld)0.7 %Normal0.2-2.0The [facility] Comment on above:Performed By: #### CBC #### [facility] [address] [address] [address] Brea Domingo #0.1 103/ulNormal0.0-0.7The [facility] CenterComment on above: Performed By: #### CBC #### [facility] [address] [place] [address] Dr. Brea Napolesosinophils/100 WBC (Bld)2.4 %Normal0.9-7.0The [facility] Comment on above:Performed By: #### CBC #### [facility] [address] [place] [address] Dr. Brea Napolesrythrocyte distribution width (RBC) [Ratio]13.3 %Iigdct36.0-15.[address] [facility] [facility]'S HospitalComment on above:Performed By: #### CBC #### [facility] [address] [place] [address] Dr. Brea CausyeHematocrit (Bld) [Volume fraction]36.5 %Critically low42.0-54.0 The [facility], [facility] CenterComment on above:Performed By: #### CBC #### [facility] [address] [address] [address] Brea CauseyHemoglobin (Bld) [Mass/Vol]12.1 g/dLCritically low14.0-18.0The [facility] CenterComment on above:Performed By: #### CBC #### [facility] [address] [place] [address] Dr. Brea Monreal #0.07 10e3/ulCritically high0.00-0.03The [facility] Comment on above:Performed By: #### CBC #### [facility] [address] [address] [address] Brea Monreal %1.2 %Critically high0.0-0.5The [facility] CenterComment on above:Performed By: #### CBC #### [facility] [address] [address] [address] Brea Hopkins #0.9 103/ulCritically low1.2-3.8The [facility] Comment on above:Performed By: #### CBC #### [facility] [address] [place] [address] Dr. Brea Cheathamhocytes/100 WBC (Bld)14.5 %Critically low20.5-60.0The [facility] CenterComment on above:Performed By: #### CBC #### [facility] [address] [place] [address] Dr. Brea Velazquez DIFF REQNONormalThe [facility], [facility] CenterComment on above: Performed By: #### CBC #### [facility] [address] [place] [address] Dr. Brea Freire (RBC) [Entitic mass]28.8 ilVbejoa71.9-34.0The [facility], Cancer CenterComment on above:Performed By: #### CBC #### [facility] [address] [place] [address] Dr. Brea Freire (RBC) [Mass/Vol]33.2 g/sKBvdvis31.9-35.2The [facility] CenterComment on above:Performed By: #### CBC #### [facility] [address] [place] [address] Dr. Brea Freire (RBC) [Entitic vol]86.9 kOOwuifg10.0-94.0The [facility] CenterComment on above:Performed By: #### CBC #### [facility] [address] [place] [address] Dr. Brea Molina #0.6 103/ulNormal0.3-0.8The [facility] CenterComment on above:Performed By: #### CBC #### [facility] [address] [address] [address] Brea Krishnanocytes/100 WBC (Bld)10.3 %Normal1.7-12.0The [facility] Comment on above:Performed By: #### CBC #### [facility] [address] [place] [address] Dr. Brea DoUT #4.2 103/ulNormal1.4-6.5The [facility] CenterComment on above:Performed By: #### CBC #### [facility] [address] [place] [address] Dr. Brea Doutrophils/100 WBC (Bld)70.9 %Lezrpj38.0-75.0The [facility], [facility] CenterComment on above:Performed By: #### CBC #### [facility] [address] [place] [address] Dr. Brea CauseyPlatelet mean volume (Bld) [Entitic vol]9.1 fLCritically low 9.5-13.5The [facility] CenterComment on above:Performed By: #### CBC #### [facility] [address] [place] [address] Dr. Brea CauseyPLT248 103/tsVvdipg183-410Wdm [facility] CenterComment on above: Performed By: #### CBC #### [facility] [address] [place] [address] Dr. Brea CauseyRBC4.20 106/ulCritically low4.70-6.10The [facility] CenterComment on above:Performed By: #### CBC #### [facility] [address] [place] [address] Dr. Brea CauseyWBC5.9 103/ulNormal4.0-11.0The [facility] on above: Performed By: #### CBC #### [facility] [address] [place] [address] Dr. Brea CauseyLIPID PROFILEon [id number]-HDL RATIO NORMSEE BELOWNormalThe Forgan HospitalComment on above:Result Comment: 3.3 - 4.4 LOW RISK 4.4 - 7.1 AVERAGE RISK 7.1 - 11.0 MODERATE RISK >11.0 HIGH RISKPerformed By: #### URIC, CMP, LIPID, DBIL, PHOS, MG #### [facility] [address] [place] [address] Dr. Brea CauseyCholesterol [Mass/Vol]95 mg/dLNormal<=200The [facility] Comment on above:Performed By: #### URIC, CMP, LIPID, DBIL, PHOS, MG #### [facility] [address] [place] [address] Dr. Brea CauseyCholesterol in HDL [Mass/Vol]49 mg/xEYqmefb11-55MsqSt. Rita'S HospitalComment on above:Performed By: #### URIC, CMP, LIPID, DBIL, PHOS, MG #### [facility] [address] [place] [address] Dr. Brea Reynosoesterol in LDL [Mass/Vol]35.4 mg/dLNoUniversity Hospitals Lake West Medical CenterComment on above:Performed By: #### URIC, CMP, LIPID, DBIL, PHOS, MG #### [facility] [address] [place] [address] Dr. Brea Joseph.total/Cholesterol in HDL [Mass ratio]1.9 {ratio} NormalSt. Rita'S HospitalComselect specialty hospital on above:Performed By: #### URIC, CMP, LIPID, DBIL, PHOS, MG #### [facility] [address] [place] [address] Dr. Brea Padilla NORMAL> or = 60 mg/dl - LOW CARDIOVASCULAR RISK <40 mg/dl - HIGH CARDIOVASCULAR RISKParkview Health Montpelier HospitalComment on above:Performed By: #### URIC, CMP, LIPID, DBIL, PHOS, MG #### [facility] [address] [place] [address] Dr. Brea Culp CALC NORMALSEE BELOWParkview Health Montpelier HospitalComment on above:Result Comment: <100 mg/dl OPTIMAL 100 - 129 mg/dl NEAR OR ABOVE OPTIMAL 130 - 159 mg/dl BORDERLINE HIGH 160 - 189 mg/dl HIGH >190 mg/dl VERY HIGH Performed By: #### URIC, CMP, LIPID, DBIL, PHOS, MG #### [facility] [address] [place] [address] Dr. Brea CauseyTriglyceride [Mass/Vol]53 mg/dLNormal<=150The [facility] Comment on above:Performed By: #### URIC, CMP, LIPID, DBIL, PHOS, MG #### [facility] [address] [place] [address] Dr. Brea CauseyVLDL CALC10.6 mg/dLNormalThe [facility] CenterComment on above: Performed By: #### URIC, CMP, LIPID, DBIL, PHOS, MG #### [facility] [address] [place] [address] Dr. Brea CauseyMAGNESIUMon [id number] [Mass/Vol]1.5 mg/dLCritically low 1.8-2.4The [facility] CenterComment on above:Performed By: #### URIC, CMP, LIPID, DBIL, PHOS, MG #### [facility] [address] [place] [address] Dr. Brea CauseyPHOSPHORUSon [id number] [Mass/Vol]3.8 mg/dLNormal2.6-4.7 The [facility] CenterComment on above:Performed By: #### URIC, CMP, LIPID, DBIL, PHOS, MG #### [facility] [address] [place] [address] Dr. Brea CauseyPROF 14(COMP METB)on [id number] [Mass/Vol]4.1 g/dLNormal 3.4-5.0The [facility] CenterComment on above:Performed By: #### URIC, CMP, LIPID, DBIL, PHOS, MG #### [facility] [address] [place] [address] Dr. Brae CauseyAlbumin/Globulin [Mass ratio]1.3 {ratio}NormalThe [facility] CenterComment on above:Performed By: #### URIC, CMP, LIPID, DBIL, PHOS, MG #### [facility] [address] [place] [address] Dr. Brea Guzman [Catalytic activity/Vol]197 U/LCritically oile05-702Dgo [facility] CenterComment on above:Performed By: #### URIC, CMP, LIPID, DBIL, PHOS, MG #### [facility] [address] [place] [address] Dr. Brea Diaz [Catalytic activity/Vol]26 U/EIhcwdd52-10Avs [facility] CenterComment on above:Performed By: #### URIC, CMP, LIPID, DBIL, PHOS, MG #### [facility] [address] [place] [address] Dr. Brea Vieira gap [Moles/Vol]12.6 mmol/LNormalThe [facility] Comment on above:Performed By: #### URIC, CMP, LIPID, DBIL, PHOS, MG #### [facility] [address] [place] [address] Dr. Brea Landers [Catalytic activity/Vol]20 U/FZgryet85-83Pxa [facility] CenterComment on above:Performed By: #### URIC, CMP, LIPID, DBIL, PHOS, MG #### [facility] [address] [place] [address] Dr. Brea CauseyBilirubin [Mass/Vol]0.4 mg/dLNormal0.2-1.0The [facility] Comment on above:Performed By: #### URIC, CMP, LIPID, DBIL, PHOS, MG #### [facility] [address] [place] [address] Dr. Brea CauseyCalcium [Mass/Vol]7.9 mg/dLCritically low8.5-10.1The [facility] CenterComment on above:Performed By: #### URIC, CMP, LIPID, DBIL, PHOS, MG #### [facility] [address] [place] [address] Dr. Brea CauseyChloride [Moles/Vol]97 mmol/LCritically qkz02-905Snd [facility] Hospitalment on above:Performed By: #### URIC, CMP, LIPID, DBIL, PHOS, MG #### [facility] [address] [place] [address] Dr. Brea CauseyCO2 [Moles/Vol]28.9 mmol/TJyhyis61.0-32.0The [facility] Comment on above:Performed By: #### URIC, CMP, LIPID, DBIL, PHOS, MG #### [facility] [address] [place] [address] Dr. Brea CauseyCreatinine [Mass/Vol]0.98 mg/dLNormal0.70-1.30The [facility] Hospitalment on above:Performed By: #### URIC, CMP, LIPID, DBIL, PHOS, MG #### [facility] [address] [place] [address] Dr. Brea NapolesGFR-AF SERBIAN>60Normal>=60The [facility] Hospitalment on above:Performed By: #### URIC, CMP, LIPID, DBIL, PHOS, MG #### [facility] [address] [place] [address] Dr. Brea NapolesGFR-NON AF SERBIAN>60Normal>=60[facility] on above:Performed By: #### URIC, CMP, LIPID, DBIL, PHOS, MG #### [facility] [address] [place] [address] Dr. Brea CauseyGlobulin (S) [Mass/Vol]3.2 g/dLNormalThe [facility] CenterComment on above:Performed By: #### URIC, CMP, LIPID, DBIL, PHOS, MG #### [facility] [address] [place] [address] Dr. Brea CauseyGlucose [Mass/Vol]174 mg/dLCritically inhn21-756Bsw [facility] on above:Performed By: #### URIC, CMP, LIPID, DBIL, PHOS, MG #### [facility] [address] [place] [address] Dr. Brea CauseyPotassium [Moles/Vol]4.5 mmol/LNormal3.5-5.1The [facility] Comment on above:Performed By: #### URIC, CMP, LIPID, DBIL, PHOS, MG #### [facility] [address] [place] [address] Dr. Brea CauseyProtein [Mass/Vol]7.3 g/dLNormal6.4-8.2The [facility] Comment on above:Performed By: #### URIC, CMP, LIPID, DBIL, PHOS, MG #### [facility] [address] [place] [address] Dr. Brea CauseySodium [Moles/Vol]134 mmol/LCritically sih791-456Oos [facility] CenterComment on above:Performed By: #### URIC, CMP, LIPID, DBIL, PHOS, MG #### [facility] [address] [place] [address] Dr. Brea CauseyUrea nitrogen [Mass/Vol]8.0 mg/dLNormal7.0-18.0The [facility] CenterComment on above:Performed By: #### URIC, CMP, LIPID, DBIL, PHOS, MG #### [facility] [address] [place] [address] Dr. Brea Mercado nitrogen/Creatinine [Mass ratio]8.2 mg/mgNormalThe [facility] CenterComment on above:Performed By: #### URIC, CMP, LIPID, DBIL, PHOS, MG #### [facility] [address] [place] [address] Dr. Brea CauseyURIC ACID SERUMon [id number] [Mass/Vol]5.8 mg/dLNormal 3.5-7.2The [facility] Cancer CenterComment on above:Performed By: #### URIC, CMP, LIPID, DBIL, PHOS, MG #### [facility] [address] [place] [address] Dr. Brea CauseyFK506 (TACROLIMUS) WHOLE BLOODon [id number] (FK506), Blood3.6 ng/mLNormal2.0-20.0The [facility] HospitalComment on above:Result Comment: Trough (immediately following transplant) 15.0 . Trough (steady state, 2 weeks or more after transplant): 3.0 - 8.0 . Performed by LC-MS/MS technology.Performed By: #### CBC #### [facility] [address] [place] [address] Dr. Brea CauseyBILIRUBIN CONJUGATED (DIRECT)on [id number], CONJUGATED0.1 mg/dLNormal0.0-0.2The [facility] Cancer CenterComment on above:Performed By: #### BKVIRUS #### [facility] [address] [place] [address] Dr. Brea StanfordC AUTO DIFFon [id number] #0.0 103/ulNormal0.0-0.1The [facility] Cancer CenterComment on above:Performed By: #### URIC, CMP, LIPID, DBIL, PHOS, MG #### [facility] [address] [place] [address] Dr. Brea CauseyBasophils/100 WBC (Bld)0.5 %Normal0.2-2.0The [facility] Comment on above:Performed By: #### URIC, CMP, LIPID, DBIL, PHOS, MG #### [facility] [address] [place] [address] Dr. Brea Domingo #0.2 103/ulNormal0.0-0.7The [facility] Cancer CenterComment on above: Performed By: #### URIC, CMP, LIPID, DBIL, PHOS, MG #### [facility] [address] [place] [address] Dr. Brea Napolesosinophils/100 WBC (Bld)2.6 %Normal0.9-7.0The [facility] Comment on above:Performed By: #### URIC, CMP, LIPID, DBIL, PHOS, MG #### [facility] [address] [place] [address] Dr. Brea Napolesrythrocyte distribution width (RBC) [Ratio]13.3 %Vunvmv37.0-15.0 The [facility], Cancer CenterComment on above:Performed By: #### URIC, CMP, LIPID, DBIL, PHOS, MG #### [facility] [address] [place] [address] Dr. Brea Grahamatocrit (Bld) [Volume fraction]37.2 %Critically low42.0-54.0 The [facility] Cancer CenterComment on above:Performed By: #### URIC, CMP, LIPID, DBIL, PHOS, MG #### [facility] [address] [place] [address] Dr. Brea CauseyHemoglobin (Bld) [Mass/Vol]12.4 g/dLCritically low14.0-18.0The [facility], Cancer CenterComment on above:Performed By: #### URIC, CMP, LIPID, DBIL, PHOS, MG #### [facility] [address] [place] [address] Dr. Brea Monreal #0.09 10e3/ulCritically high0.00-0.03[facility] Comment on above:Performed By: #### URIC, CMP, LIPID, DBIL, PHOS, MG #### [facility] [address] [place] [address] Dr. Brea Monreal %1.4 %Critically high0.0-0.5ThAvita Health System Bucyrus HospitalComment on above:Performed By: #### URIC, CMP, LIPID, DBIL, PHOS, MG #### [facility] [address] [place] [address] Dr. Brea Hopkins #1.0 103/ulCritically low1.2-3.8ThAvita Health [facility] Comment on above:Performed By: #### URIC, CMP, LIPID, DBIL, PHOS, MG #### [facility] [address] [place] [address] Dr. Brea Cheathamhocytes/100 WBC (Bld)15.2 %Critically low20.5-60.0The [facility], Cancer CenterComment on above:Performed By: #### URIC, CMP, LIPID, DBIL, PHOS, MG #### [facility] [address] [place] [address] Dr. Brea Velazquez DIFF REQNONormalThe [facility], Cancer CenterComment on above: Performed By: #### URIC, CMP, LIPID, DBIL, PHOS, MG #### [facility] [address] [place] [address] Dr. Bre[facility]yFLUSHING [facility] (RBC) [Entitic mass]28.8 umBeiexp27.9-34.0The [facility], [facility] CenterComment on above:Performed By: #### URIC, CMP, LIPID, DBIL, PHOS, MG #### [facility] [address] [place] [address] Dr. Brea CauseyFOUR [facility]DS [facility] (RBC) [Mass/Vol]33.3 g/kCJqmsib20.9-35.2The [facility], [facility] CenterComment on above:Performed By: #### URIC, CMP, LIPID, DBIL, PHOS, MG #### [facility] [address] [place] [address] Dr. [facility] [place] [Entitic vol]86.5 qMVlflqy91.0-94.0The [facility], Cancer CenterComment on above:Performed By: #### URIC, CMP, LIPID, DBIL, PHOS, MG #### [facility] [address] [place] [address] Dr. Brea Molina #0.7 103/ulNormal0.3-0.8The [facility] CenterComment on above:Performed By: #### URIC, CMP, LIPID, DBIL, PHOS, MG #### [facility] [address] [place] [address] Dr. Brea Krishnanocytes/100 WBC (Bld)10.0 %Normal1.7-12.0The [facility] Comment on above:Performed By: #### URIC, CMP, LIPID, DBIL, PHOS, MG #### [facility] [address] [place] [address] Dr. Brea Lewis #4.6 103/ulNormal1.4-6.5The [facility], [facility] CenterComment on above:Performed By: #### URIC, CMP, LIPID, DBIL, PHOS, MG #### [facility] [address] [place] [address] Dr. Brea Cohenophils/100 WBC (Bld)70.3 %Dfwtht16.0-75.0The [facility] on above:Performed By: #### URIC, CMP, LIPID, DBIL, PHOS, MG #### [facility] [address] [place] [address] Dr. Brea Galvanlet mean volume (Bld) [Entitic vol]8.8 fLCritically low 9.5-13.5The [facility] Hospitalment on above:Performed By: #### URIC, CMP, LIPID, DBIL, PHOS, MG #### [facility] [address] [place] [address] Dr. Brea CauseyPLT240 103/cbEoeawq474-775Lof [facility] on above: Performed By: #### URIC, CMP, LIPID, DBIL, PHOS, MG #### [facility] [address] [place] [address] Dr. Brea CauseyRBC4.30 106/ulCritically low4.70-6.10The [facility] on above:Performed By: #### URIC, CMP, LIPID, DBIL, PHOS, MG #### [facility] [address] [place] [address] Dr. Brea CauseyWBC6.5 103/ulNormal4.0-11.0The [facility] on above: Performed By: #### URIC, CMP, LIPID, DBIL, PHOS, MG #### [facility] [address] [place] [address] Dr. Brea CauseyLIPID PROFILEon [id number]-HDL RATIO NORMSEE [facility] on above:Result Comment: 3.3 - 4.4 LOW RISK 4.4 - 7.1 AVERAGE RISK 7.1 - 11.0 MODERATE RISK >11.0 HIGH RISKPerformed By: #### URIC, CMP, LIPID, DBIL, PHOS, MG #### [facility] [address] [place] [address] Dr. Brea Reynosoesterol [Mass/Vol]86 mg/dLNormal<=200The [facility] Comment on above:Performed By: #### URIC, CMP, LIPID, DBIL, PHOS, MG #### [facility] [address] [place] [address] Dr. Brea CauseyCholesterol in HDL [Mass/Vol]44 mg/vTPgnrqk89-27Ntq [facility] CenterComment on above:Performed By: #### URIC, CMP, LIPID, DBIL, PHOS, MG #### [facility] [address] [address] [address] Brea CauseyCholesterol in LDL [Mass/Vol]28.0 mg/dLNoUniversity Hospitals Lake West Medical CenterComment on above:Performed By: #### URIC, CMP, LIPID, DBIL, PHOS, MG #### [facility] [address] [place] [address] Dr. Brea Reynosoesterjuan antonio.total/Cholesterol in HDL [Mass ratio]2.0 {ratio} NormalSt. Rita'S HospitalComment on above:Performed By: #### URIC, CMP, LIPID, DBIL, PHOS, MG #### [facility] [address] [place] [address] Dr. Brea Padilla NORMAL> or = 60 mg/dl - LOW CARDIOVASCULAR RISK <40 mg/dl - HIGH CARDIOVASCULAR RISKParkview Health Montpelier HospitalComment on above:Performed By: #### URIC, CMP, LIPID, DBIL, PHOS, MG #### [facility] [address] [place] [address] Dr. Brea CauseyLDL CALC NORMALSEE BELOWParkview Health Montpelier HospitalComment on above:Result Comment: <100 mg/dl OPTIMAL 100 - 129 mg/dl NEAR OR ABOVE OPTIMAL 130 - 159 mg/dl BORDERLINE HIGH 160 - 189 mg/dl HIGH >190 mg/dl VERY HIGH Performed By: #### URIC, CMP, LIPID, DBIL, PHOS, MG #### [facility] [address] [place] [address] Dr. Brea CauseyTriglyceride [Mass/Vol]70 mg/dLNormal<=150The [facility] Comment on above:Performed By: #### URIC, CMP, LIPID, DBIL, PHOS, MG #### [facility] [address] [place] [address] Dr. Brea CauseyVLDL CALC14.0 mg/dLNormalThe [facility] CenterComment on above: Performed By: #### URIC, CMP, LIPID, DBIL, PHOS, MG #### [facility] [address] [place] [address] Dr. Brea CauseyMAGNESIUMon [id number] [Mass/Vol]1.4 mg/dLCritically low 1.8-2.4The [facility], [facility] CenterComment on above:Performed By: #### URIC, CMP, LIPID, DBIL, PHOS, MG #### [facility] [address] [place] [address] Dr. Brea CauseyPHOSPHORUSon [id number] [Mass/Vol]4.1 mg/dLNormal2.6-4.7 The [facility], [facility] CenterComment on above:Performed By: #### URIC, CMP, LIPID, DBIL, PHOS, MG #### [facility] [address] [place] [address] Dr. Brea CauseyPROPao 14(COMP METB)on 52-92-6051Ludbowc [Mass/Vol]4.0 g/dLNormal 3.4-5.0The [facility] CenterComment on above:Performed By: #### BKVIRUS #### [facility] [address] [place] [address] Dr. Brea CauseyAlbumin/Globulin [Mass ratio]1.3 {ratio}NormalThe [facility] CenterComment on above:Performed By: #### BKVIRUS #### [facility] [address] [place] [address] Dr. Brea Guzman [Catalytic activity/Vol]212 U/LCritically fera46-295Guj [facility] CenterComment on above:Performed By: #### BKVIRUS #### [facility] [address] [place] [address] Dr. Brea Diaz [Catalytic activity/Vol]31 U/DZonpzg72-28Phc [facility] CenterComment on above:Performed By: #### BKVIRUS #### [facility] [address] [place] [address] Dr. Brea CauseyAnion gap [Moles/Vol]11.9 mmol/LNormalThe [facility] Comment on above:Performed By: #### BKVIRUS #### [facility] [address] [place] [address] Dr. Brea CauseyAST [Catalytic activity/Vol]21 U/QOayzmn65-59Wfx [facility] CenterComment on above:Performed By: #### BKVIRUS #### [facility] [address] [place] [address] Dr. Brea CauseyBilirubin [Mass/Vol]0.3 mg/dLNormal0.2-1.0[facility] Comment on above:Performed By: #### BKVIRUS #### [facility] [address] [place] [address] Dr. Brea CauseyCalcium [Mass/Vol]8.1 mg/dLCritically low8.5-10.1The [facility] CenterComment on above:Performed By: #### BKVIRUS #### [facility] [address] [place] [address] Dr. Brea CauseyChloride [Moles/Vol]97 mmol/LCritically xej55-669Gkm [facility] CenterComment on above:Performed By: #### BKVIRUS #### [facility] [address] [place] [address] Dr. Brea CauseyCO2 [Moles/Vol]26.8 mmol/TTqfvws80.0-32.0The [facility] Comment on above:Performed By: #### BKVIRUS #### [facility] [address] [place] [address] Dr. Brea CauseyCreatinine [Mass/Vol]0.99 mg/dLNormal0.70-1.30The [facility] CenterComment on above:Performed By: #### BKVIRUS #### [facility] [address] [place] [address] Dr. Brea NapolesGFR-AF SERBIAN>60Normal>=60The [facility] CenterComment on above:Performed By: #### BKVIRUS #### [facility] [address] [place] [address] Dr. Brea NapolesGFR-NON AF SERBIAN>60Normal>=60The [facility] CenterComment on above:Performed By: #### BKVIRUS #### [facility] [address] [place] [address] Dr. Brea CauseyGlobulin (S) [Mass/Vol]3.2 g/dLNormalThe [facility] CenterComment on above:Performed By: #### BKVIRUS #### [facility] [address] [place] [address] Dr. Brea CauseyGlucose [Mass/Vol]169 mg/dLCritically iulo18-443Mmz [facility] CenterComment on above:Performed By: #### BKVIRUS #### [facility] [address] [place] [address] Dr. Brea CauseyPotassium [Moles/Vol]4.7 mmol/LNormal3.5-5.1The [facility] Comment on above:Performed By: #### BKVIRUS #### [facility] [address] [place] [address] Dr. Brea CauseyProtein [Mass/Vol]7.2 g/dLNormal6.4-8.2The [facility] Comment on above:Performed By: #### BKVIRUS #### [facility] [address] [place] [address] Dr. Brea CauseySodium [Moles/Vol]131 mmol/LCritically dzf981-718Toa [facility] CenterComment on above:Performed By: #### BKVIRUS #### [facility] [address] [place] [address] Dr. Brea CauseyUrea nitrogen [Mass/Vol]9.0 mg/dLNormal7.0-18.0The [facility] CenterComment on above:Performed By: #### BKVIRUS #### [facility] [address] [place] [address] Dr. Brea CauseyUrea nitrogen/Creatinine [Mass ratio]9.1 mg/mgNormalThe [facility] CenterComment on above:Performed By: #### BKVIRUS #### [facility] [address] [address] [address] Brea CauseyURIC ACID SERUMon [id number] [Mass/Vol]6.1 mg/dLNormal 3.5-7.2The [facility] CenterComment on above:Performed By: #### URIC, CMP, LIPID, DBIL, PHOS, MG #### [facility] [address] [place] [address] Dr. Brea CauseyTESTOSTERONE, FREE,DIRECT, TOTALon [id number] Testosterone(Direct)5.9 pg/mLCritically low6.6-18.1The [facility] on above:Result Comment: Performed at: BNPerformed By: #### URIC, CMP, LIPID, DBIL, PHOS, MG #### [facility] [address] [place] [address] Dr. Brea CauseyTestosterone [Mass/Vol]513 ng/eYCjvlld373-321Pss [facility] on above:Result Comment: Adult male reference interval is based on a population of healthy nonobese males (BMI <30) between 19 and 39 years old. Steven et.al. JCEM 2017,102;6175-3005. PMID: [id number]. Performed at: CBPerformed By: #### URIC, CMP, LIPID, DBIL, PHOS, MG #### [facility] [address] [place] [address] Dr. Brea CauseyFK506 (TACROLIMUS) WHOLE BLOODon 94-51-2834Ucohnxisbm (FK506), Blood3.9 ng/mLNormal2.0-20.0The [facility] on above:Result Comment: Trough (immediately following transplant) 15.0 . Trough (steady state, 2 weeks or more after transplant): 3.0 - 8.0 . Performed by LC-MS/MS technology.Performed By: #### BKVIRUS #### [facility] [address] [place] [address] Dr. Brea Kidd VIRUS PCR QUANTon [id number] DNA QUANT PCR PLASMANegative NormalNegativeCleveland Clinicment on above:Result Comment: No BK DNA detected. . The linear range of the assay is 22 - 100,000,000 IU/mL.Performed By: #### URIC, CMP, LIPID, DBIL, PHOS, MG #### [facility] [address] [place] [address] Dr. Brea CauseyLog10 BKV DNA PlasmaNormalThe [facility] CenterComment on above: Performed By: #### URIC, CMP, LIPID, DBIL, PHOS, MG #### [facility] [address] [place] [address] Dr. Brea CauseyBILIRUBIN CONJUGATED (DIRECT)on [id number], CONJUGATED0.2 mg/dLNormal0.0-0.2The [facility] CenterComment on above:Performed By: #### CBC #### [facility] [address] [place] [address] Dr. Brea Reis AUTO DIFFon [id number] #0.0 103/ulNormal0.0-0.1St[facility] HospitalComment on above:Performed By: #### BKVIRUS #### [facility] [address] [place] [address] Dr. Brea CauseyBasophils/100 WBC (Bld)0.6 %Normal0.2-2.0[facility] Comment on above:Performed By: #### BKVIRUS #### [facility] [address] [place] [address] Dr. Brea Domingo #0.1 103/ulNormal0.0-0.7The [facility] CenterComment on above: Performed By: #### BKVIRUS #### [facility] [address] [place] [address] Dr. Brea Napolesosinophils/100 WBC (Bld)1.7 %Normal0.9-7.0[facility] Comment on above:Performed By: #### BKVIRUS #### [facility] [address] [place] [address] Dr. Brea Napolesrythrocyte distribution width (RBC) [Ratio]13.4 %Ckvniv89.0-15.[address] [facility] [facility] HospitalComment on above:Performed By: #### BKVIRUS #### [facility] [address] [place] [address] Dr. Brea CauseyHematocrit (Bld) [Volume fraction]38.8 %Critically low42.0-54.[address] [facility] [facility]S HospitalComment on above:Performed By: #### BKVIRUS #### [facility] [address] [place] [address] Dr. Brea CauseyHemoglobin (Bld) [Mass/Vol]12.4 g/dLCritically low14.0-18.0[facility] HospitalComment on above:Performed By: #### BKVIRUS #### [facility] [address] [place] [address] Dr. Brea Monreal #0.07 10e3/ulCritically high0.00-0.03[facility] Comment on above:Performed By: #### BKVIRUS #### [facility] [address] [place] [address] Dr. Brea Monreal %1.1 %Critically high0.0-0.5ThAvita Health System Bucyrus HospitalComment on above:Performed By: #### BKVIRUS #### [facility] [address] [place] [address] Dr. Brea Hopkins #0.9 103/ulCritically low1.2-3.8ThAvita Health System [facility] Comment on above:Performed By: #### BKVIRUS #### [facility] [address] [place] [address] Dr. Brea Cheathamhocytes/100 WBC (Bld)14.1 %Critically low20.5-60.0[facility] HospitalComment on above:Performed By: #### BKVIRUS #### [facility] [address] [place] [address] Dr. Brea AscencioUAL DIFF REQNONormalThe [facility] CenterComment on above: Performed By: #### BKVIRUS #### [facility] [address] [place] [address] Dr. Brea Freire (RBC) [Entitic mass]29.3 fnTasptv52.9-34.0The [facility], Cancer CenterComment on above:Performed By: #### BKVIRUS #### [facility] [address] [place] [address] Dr. Brea Freire (RBC) [Mass/Vol]32.0 g/aFAftgyl65.9-35.2The Forgan HospitalComment on above:Performed By: #### BKVIRUS #### [facility] [address] [place] [address] Dr. Brea Arevalo (RBC) [Entitic vol]91.7 dZEoysat84.0-94.0The [facility], Cancer CenterComment on above:Performed By: #### BKVIRUS #### [facility] [address] [place] [address] Dr. Brea Molina #0.7 103/ulNormal0.3-0.8The [facility] Cancer CenterComment on above:Performed By: #### BKVIRUS #### [facility] [address] [place] [address] Dr. Brea Krishnanocytes/100 WBC (Bld)10.0 %Normal1.7-12.0The [facility] Comment on above:Performed By: #### BKVIRUS #### [facility] [address] [place] [address] Dr. Brea Lewis #4.7 103/ulNormal1.4-6.5The [facility], Cancer CenterComment on above:Performed By: #### BKVIRUS #### [facility] [address] [place] [address] Dr. Brea Doutrophils/100 WBC (Bld)72.5 %Bepxgm06.0-75.0The [facility], Cancer CenterComment on above:Performed By: #### BKVIRUS #### [facility] [address] [place] [address] Dr. Yilan ChangPlatelet mean volume (Bld) [Entitic vol]9.4 fLCritically low 9.5-13.5The [facility], Cancer CenterComment on above:Performed By: #### BKVIRUS #### [facility] [address] [place] [address] Dr. Brea CauseyPLT256 103/hbTwbdwo761-924Jue [facility] on above: Performed By: #### BKVIRUS #### [facility] [address] [address] [address] Brea CauseyRBC4.23 106/ulCritically low4.70-6.10The [facility] Cancer CenterComselect specialty hospital on above:Performed By: #### BKVIRUS #### [facility] [address] [place] [address] Dr. Brea CauseyWBC6.5 103/ulNormal4.0-11.0The [facility] on above: Performed By: #### BKVIRUS #### [facility] [address] [place] [address] Dr. Brea CauseyGLYCOHEMOGLOBIN A1Con [id number] RECOMMENDATIONSEE BELOWNoProMedica Flower HospitalComselect specialty hospital on above:Result Comment: ADA RECOMMENDED LIMIT 4.0 - 6.0 ADA THERAPEUTIC TARGET < 7.0 ACTION SUGGESTED > 7.0Performed By: #### URIC, CMP, LIPID, DBIL, PHOS, MG #### [facility] [address] [place] [address] Dr. Brea CauseyGlucose [Mass/Vol]160 mg/dLNormalThAvita Health System Bucyrus HospitalComselect specialty hospital on above:Performed By: #### URIC, CMP, LIPID, DBIL, PHOS, MG #### [facility] [address] [place] [address] Dr. Brea CauseyHbA1c (Bld) [Mass fraction]7.2 %Critically high4.5-6.2The [facility] on above:Performed By: #### URIC, CMP, LIPID, DBIL, PHOS, MG #### [facility] [address] [place] [address] Dr. Brea CoatsID PROFILEon [id number]-HDL RATIO NORMSMedina HospitalComment on above:Result Comment: 3.3 - 4.4 LOW RISK 4.4 - 7.1 AVERAGE RISK 7.1 - 11.0 MODERATE RISK >11.0 HIGH RISKPerformed By: #### CBC #### [facility] [address] [address] [address] Brea CauseyCholesterol [Mass/Vol]87 mg/dLNormal<=200[facility] Comment on above:Performed By: #### CBC #### [facility] [address] [address] [address] Brea CauseyCholesterol in HDL [Mass/Vol]54 mg/wABxrhde14-87IvqSt. Rita'S HospitalComment on above:Performed By: #### CBC #### [facility] [address] [address] [address] Brea CauseyCholesterol in LDL [Mass/Vol]24.6 mg/dLParkview Health Montpelier HospitalComment on above:Performed By: #### CBC #### [facility] [address] [address] [address] Brea Reynosoesterjuan antonio.total/Cholesterol in HDL [Mass ratio]1.6 {ratio} NormalSt. Rita'S HospitalComment on above:Performed By: #### CBC #### [facility] [address] [address] [address] Brea Padilla NORMAL> or = 60 mg/dl - LOW CARDIOVASCULAR RISK <40 mg/dl - HIGH CARDIOVASCULAR RISKParkview Health Montpelier HospitalComselect specialty hospital on above:Performed By: #### CBC #### [facility] [address] [address] [address] Brea CauseyLDL CALC NORMALSEE [facility] Children's HospitalComment on above:Result Comment: <100 mg/dl OPTIMAL 100 - 129 mg/dl NEAR OR ABOVE OPTIMAL 130 - 159 mg/dl BORDERLINE HIGH 160 - 189 mg/dl HIGH >190 mg/dl VERY HIGH Performed By: #### CBC #### [facility] [address] [address] [address] Brea CauseyTriglyceride [Mass/Vol]42 mg/dLNormal<=150The [facility] Comment on above:Performed By: #### CBC #### [facility] [address] [place] [address] Dr. Brea CauseyVLDL CALC8.4 mg/dLNormalThe [facility] Cancer CenterComment on above: Performed By: #### CBC #### [facility] [address] [place] [address] Dr. Brea CauseyMAGNESIUMon 23-40-3621Koacszpes [Mass/Vol]1.4 mg/dLCritically low 1.8-2.4The [facility], Cancer CenterComment on above:Performed By: #### CBC #### [facility] [address] [place] [address] Dr. Brea CauseyPHOSPHORUSon [id number] [Mass/Vol]3.6 mg/dLNormal2.6-4.7 The [facility], Cancer CenterComment on above:Performed By: #### CBC #### [facility] [address] [place] [address] Dr. Brea CauseyPROF 14(COMP METB)on [id number] [Mass/Vol]3.9 g/dLNormal 3.4-5.0The [facility], [facility] CenterComment on above:Performed By: #### CBC #### [facility] [address] [place] [address] Dr. Brea CauseyAlbumin/Globulin [Mass ratio]1.2 {ratio}NormalThe [facility], Cancer CenterComment on above:Performed By: #### CBC #### [facility] [address] [place] [address] Dr. Brea Guzman [Catalytic activity/Vol]190 U/LCritically zelz73-314Nfm [facility], [facility] CenterComment on above:Performed By: #### CBC #### [facility] [address] [place] [address] Dr. Brea Diaz [Catalytic activity/Vol]26 U/JBrcgwd39-25Mfn [facility], [facility] CenterComment on above:Performed By: #### CBC #### [facility] [address] [address] [address] Brea Vieira gap [Moles/Vol]13.1 mmol/LNormalThe [facility] Comment on above:Performed By: #### CBC #### [facility] [address] [address] [address] Brea CauseyAST [Catalytic activity/Vol]18 U/OTnekaf18-00Gtp [facility], [facility] CenterComment on above:Performed By: #### CBC #### [facility] [address] [address] [address] Brea CauseyBilirubin [Mass/Vol]0.4 mg/dLNormal0.2-1.0The [facility] Comment on above:Performed By: #### CBC #### [facility] [address] [place] [address] Dr. Brea CauseyCalcium [Mass/Vol]7.8 mg/dLCritically low8.5-10.1The [facility], Cancer CenterComment on above:Performed By: #### CBC #### [facility] [address] [place] [address] Dr. Brea CauseyChloride [Moles/Vol]95 mmol/LCritically lgj89-207Zfn [facility] CenterComselect specialty hospital on above:Performed By: #### CBC #### [facility] [address] [address] [address] Brea CauseyCO2 [Moles/Vol]28.8 mmol/UFlkpgx33.0-32.0The [facility] Comment on above:Performed By: #### CBC #### [facility] [address] [address] [address] Brea CauseyCreatinine [Mass/Vol]1.03 mg/dLNormal0.70-1.30The [facility], Cancer CenterComselect specialty hospital on above:Performed By: #### CBC #### [facility] [address] [address] [address] Guidry ChangEGFR-AF SERBIAN>60Normal>=60The [facility], Cancer CenterComment on above:Performed By: #### CBC #### [facility] [address] [address] [address] Brea NapolesGFR-NON AF SERBIAN>60Normal>=60The [facility], Cancer CenterComment on above:Performed By: #### CBC #### [facility] [address] [address] [address] Brea CauseyGlobulin (S) [Mass/Vol]3.2 g/dLNormalThAvita Health System Bucyrus HospitalComment on above:Performed By: #### CBC #### [facility] [address] [address] [address] Brea CauseyGlucose [Mass/Vol]155 mg/dLCritically gkgf79-222Gss [facility] CenterComselect specialty hospital on above:Performed By: #### CBC #### [facility] [address] [address] [address] Brea CauseyPotassium [Moles/Vol]4.9 mmol/LNormal3.5-5.1The [facility] Comment on above:Performed By: #### CBC #### [facility] [address] [address] [address] Brea CauseyProtein [Mass/Vol]7.1 g/dLNormal6.4-8.2The [facility] Comment on above:Performed By: #### CBC #### [facility] [address] [address] [address] Brea CauseySodium [Moles/Vol]132 mmol/LCritically jba499-821Vzy [facility], [facility] CenterComment on above:Performed By: #### CBC #### [facility] [address] [address] [address] Brea CauseyUrea nitrogen [Mass/Vol]8.0 mg/dLNormal7.0-18.0The [facility], Cancer CenterComment on above:Performed By: #### CBC #### [facility] [address] [address] [address] Brea CauseyUrea nitrogen/Creatinine [Mass ratio]7.8 mg/mgNormalThAvita Health System Bucyrus HospitalComment on above:Performed By: #### CBC #### [facility] [address] [place] [address] Dr. Brea CauseyURIC ACID SERUMon [id number] [Mass/Vol]5.6 mg/dLNormal 3.5-7.2The [facility] Hospitalment on above:Performed By: #### CBC #### [facility] [address] [place] [address] Dr. Brea CauseyTESTOSTERONE, FREE,DIRECT, TOTALon [id number] Testosterone(Direct)7.4 pg/mLNormal6.6-18.1The [facility] Hospitalment on above:Result Comment: Performed at: BNPerformed By: #### URIC, CMP, LIPID, DBIL, PHOS, MG #### [facility] [address] [place] [address] Dr. Brea CauseyTestosterone [Mass/Vol]494 ng/eMBvntnv480-263Dtx [facility] on above:Result Comment: Adult male reference interval is based on a population of healthy nonobese males (BMI <30) between 19 and 39 years old. Steven et.al. JCEM 2017,102;2543-5246. PMID: [id number]. Performed at: CBPerformed By: #### URIC, CMP, LIPID, DBIL, PHOS, MG #### [facility] [address] [place] [address] Dr. Brea CauseyFK506 (TACROLIMUS) WHOLE BLOODon [id number] (FK506), Blood4.3 ng/mLNormal2.0-20.0The [facility] Hospitalment on above:Result Comment: Trough (immediately following transplant) 15.0 . Trough (steady state, 2 weeks or more after transplant): 3.0 - 8.0 . Performed by LC-MS/MS technology.Performed By: #### CBC #### [facility] [address] [place] [address] Dr. Brea CauseyBILIRUBIN CONJUGATED (DIRECT)on [id number], CONJUGATED0.1 mg/dLNormal0.0-0.2The [facility] Hospitalment on above:Performed By: #### URIC, CMP, LIPID, DBIL, PHOS, MG #### [facility] [address] [place] [address] Dr. Brea Reis AUTO DIFFon [id number] #0.0 103/ulNormal0.0-0.1The [facility], Cancer CenterComment on above:Performed By: #### URIC, CMP, LIPID, DBIL, PHOS, MG #### [facility] [address] [place] [address] Dr. Brea CauseyBasophils/100 WBC (Bld)0.5 %Normal0.2-2.0The [facility] Comment on above:Performed By: #### URIC, CMP, LIPID, DBIL, PHOS, MG #### [facility] [address] [place] [address] Dr. Brea Domingo #0.1 103/ulNormal0.0-0.7The [facility], Cancer CenterComment on above: Performed By: #### URIC, CMP, LIPID, DBIL, PHOS, MG #### [facility] [address] [place] [address] Dr. Brea Napolesosinophils/100 WBC (Bld)2.1 %Normal0.9-7.0The [facility] Comment on above:Performed By: #### URIC, CMP, LIPID, DBIL, PHOS, MG #### [facility] [address] [place] [address] Dr. Brea Napolesrythrocyte distribution width (RBC) [Ratio]13.2 %Ejykcr27.0-15.0 The [facility], Cancer CenterComment on above:Performed By: #### URIC, CMP, LIPID, DBIL, PHOS, MG #### [facility] [address] [place] [address] Dr. Brea CauseyHematohussein (Bld) [Volume fraction]37.0 %Critically low42.0-54.0 The [facility], Cancer CenterComment on above:Performed By: #### URIC, CMP, LIPID, DBIL, PHOS, MG #### [facility] [address] [place] [address] Dr. Brea CauseyHemoglobin (Bld) [Mass/Vol]12.4 g/dLCritically low14.0-18.0The [facility], Cancer CenterComment on above:Performed By: #### URIC, CMP, LIPID, DBIL, PHOS, MG #### [facility] [address] [place] [address] Dr. Brea Monreal #0.05 10e3/ulCritically high0.00-0.03[facility] Comment on above:Performed By: #### URIC, CMP, LIPID, DBIL, PHOS, MG #### [facility] [address] [place] [address] Dr. Brea Monreal %0.9 %Critically high0.0-0.5The [facility], Cancer CenterComment on above:Performed By: #### URIC, CMP, LIPID, DBIL, PHOS, MG #### [facility] [address] [place] [address] Dr. Brea Hopkins #1.0 103/ulCritically low1.2-3.8ThAv[facility] Comment on above:Performed By: #### URIC, CMP, LIPID, DBIL, PHOS, MG #### [facility] [address] [place] [address] Dr. Brea Cheathamhocytes/100 WBC (Bld)16.4 %Critically low20.5-60.0[facility] HospitalComment on above:Performed By: #### URIC, CMP, LIPID, DBIL, PHOS, MG #### [facility] [address] [place] [address] Dr. Brea AscencioUAL DIFF REQNONormalThe [facility], Cancer CenterComment on above: Performed By: #### URIC, CMP, LIPID, DBIL, PHOS, MG #### [facility] [address] [place] [address] Dr. Brea Fang (RBC) [Entitic mass]29.0 icEajxlp97.9-34.0The [facility], Cancer CenterComment on above:Performed By: #### URIC, CMP, LIPID, DBIL, PHOS, MG #### [facility] [address] [place] [address] Dr. Brea Freire (RBC) [Mass/Vol]33.5 g/oBCgxdgm03.9-35.2The [facility], Cancer CenterComment on above:Performed By: #### URIC, CMP, LIPID, DBIL, PHOS, MG #### [facility] [address] [place] [address] Dr. Brea Freire (RBC) [Entitic vol]86.7 gYKfuplr95.0-94.0The [facility], Cancer CenterComment on above:Performed By: #### URIC, CMP, LIPID, DBIL, PHOS, MG #### [facility] [address] [place] [address] Dr. Brea Molina #0.7 103/ulNormal0.3-0.8The [facility], Cancer CenterComment on above:Performed By: #### URIC, CMP, LIPID, DBIL, PHOS, MG #### [facility] [address] [place] [address] Dr. Brea Krishnanocytes/100 WBC (Bld)11.6 %Normal1.7-12.0The [facility] Comment on above:Performed By: #### URIC, CMP, LIPID, DBIL, PHOS, MG #### [facility] [address] [place] [address] Dr. Brea Lewis #4.0 103/ulNormal1.4-6.5The [facility], Cancer CenterComment on above:Performed By: #### URIC, CMP, LIPID, DBIL, PHOS, MG #### [facility] [address] [place] [address] Dr. Brea Doutrophils/100 WBC (Bld)68.5 %Ehzoex88.0-75.0The [facility], Cancer CenterComment on above:Performed By: #### URIC, CMP, LIPID, DBIL, PHOS, MG #### [facility] [address] [place] [address] Dr. Brea Mahmood mean volume (Bld) [Entitic vol]9.2 fLCritically low 9.5-13.5The [facility], Cancer CenterComment on above:Performed By: #### URIC, CMP, LIPID, DBIL, PHOS, MG #### [facility] [address] [place] [address] Dr. Brea CauseyPLT231 103/vrPuywsp668-968Dme [facility] CenterComment on above: Performed By: #### URIC, CMP, LIPID, DBIL, PHOS, MG #### [facility] [address] [place] [address] Dr. Brea CauseyRBC4.27 106/ulCritically low4.70-6.10The [facility], Cancer CenterComment on above:Performed By: #### URIC, CMP, LIPID, DBIL, PHOS, MG #### [facility] [address] [place] [address] Dr. Brea CauseyWBC5.9 103/ulNormal4.0-11.0The [facility], [facility] CenterComment on above: Performed By: #### URIC, CMP, LIPID, DBIL, PHOS, MG #### [facility] [address] [place] [address] Dr. Brea CoatsID PROFILEon [id number]-HDL RATIO NORMSMedina HospitalComment on above:Result Comment: 3.3 - 4.4 LOW RISK 4.4 - 7.1 AVERAGE RISK 7.1 - 11.0 MODERATE RISK >11.0 HIGH RISKPerformed By: #### URIC, CMP, LIPID, DBIL, PHOS, MG #### [facility] [address] [place] [address] Dr. Brea CauseyCholesterol [Mass/Vol]78 mg/dLNormal<=200[facility] Comment on above:Performed By: #### URIC, CMP, LIPID, DBIL, PHOS, MG #### [facility] [address] [place] [address] Dr. Brea CauseyCholesterol in HDL [Mass/Vol]41 mg/jYRskgtj60-08LfdSt. Rita'S HospitalComment on above:Performed By: #### URIC, CMP, LIPID, DBIL, PHOS, MG #### [facility] [address] [address] [address] Brea Reynosoesterol in LDL [Mass/Vol]17.8 mg/dLParkview Health Montpelier HospitalComment on above:Performed By: #### URIC, CMP, LIPID, DBIL, PHOS, MG #### [facility] [address] [place] [address] Dr. Brea Joseph.total/Cholesterol in HDL [Mass ratio]1.9 {ratio} NormalSt. Rita'S HospitalComment on above:Performed By: #### URIC, CMP, LIPID, DBIL, PHOS, MG #### [facility] [address] [place] [address] Dr. Brea Padilla NORMAL> or = 60 mg/dl - LOW CARDIOVASCULAR RISK <40 mg/dl - HIGH CARDIOVASCULAR RISKNoUniversity Hospitals Lake West Medical CenterComment on above:Performed By: #### URIC, CMP, LIPID, DBIL, PHOS, MG #### [facility] [address] [place] [address] Dr. Brea Culp CALC NORMALSEE BELOWParkview Health Montpelier HospitalComment on above:Result Comment: <100 mg/dl OPTIMAL 100 - 129 mg/dl NEAR OR ABOVE OPTIMAL 130 - 159 mg/dl BORDERLINE HIGH 160 - 189 mg/dl HIGH >190 mg/dl VERY HIGH Performed By: #### URIC, CMP, LIPID, DBIL, PHOS, MG #### [facility] [address] [place] [address] Dr. Brea CauseyTriglyceride [Mass/Vol]96 mg/dLNormal<=150[facility] Comment on above:Performed By: #### URIC, CMP, LIPID, DBIL, PHOS, MG #### [facility] [address] [place] [address] Dr. Brea CauseyVLDL CALC19.2 mg/dLNoUniversity Hospitals Lake West Medical CenterComment on above: Performed By: #### URIC, CMP, LIPID, DBIL, PHOS, MG #### [facility] [address] [place] [address] Dr. Brea CauseyMAGNESIUMon [id number] [Mass/Vol]1.7 mg/dLCritically low 1.8-2.4The [facility] Hospitalment on above:Performed By: #### URIC, CMP, LIPID, DBIL, PHOS, MG #### [facility] [address] [place] [address] Dr. Brea CauseyPHOSPHORUSon 63-24-1008Lebiyzfxx [Mass/Vol]3.6 mg/dLNormal2.6-4.7 The [facility], Cancer CenterComment on above:Performed By: #### URIC, CMP, LIPID, DBIL, PHOS, MG #### [facility] [address] [place] [address] Dr. Bera Mobley 14(COMP METB)on [id number] [Mass/Vol]4.0 g/dLNormal 3.4-5.0The [facility] Hospitalment on above:Performed By: #### URIC, CMP, LIPID, DBIL, PHOS, MG #### [facility] [address] [place] [address] Dr. Brea CauseyAlbumin/Globulin [Mass ratio]1.3 {ratio}NormalThe [facility] on above:Performed By: #### URIC, CMP, LIPID, DBIL, PHOS, MG #### [facility] [address] [place] [address] Dr. Brea Guzman [Catalytic activity/Vol]196 U/LCritically elne95-741Ezs [facility] on above:Performed By: #### URIC, CMP, LIPID, DBIL, PHOS, MG #### [facility] [address] [place] [address] Dr. Brea Diaz [Catalytic activity/Vol]21 U/VPhutgi08-63Fvx [facility] Hospitalment on above:Performed By: #### URIC, CMP, LIPID, DBIL, PHOS, MG #### [facility] [address] [place] [address] Dr. Brea Vieira gap [Moles/Vol]10.5 mmol/LNormalSt. [facility]'S Hospital Comment on above:Performed By: #### URIC, CMP, LIPID, DBIL, PHOS, MG #### [facility] [address] [place] [address] Dr. Brea CauseyAST [Catalytic activity/Vol]16 U/BIgtqqw38-73Ucw [facility] CenterComment on above:Performed By: #### URIC, CMP, LIPID, DBIL, PHOS, MG #### [facility] [address] [place] [address] Dr. Brea CauseyBilirubin [Mass/Vol]0.3 mg/dLNormal0.2-1.0[facility] Comment on above:Performed By: #### URIC, CMP, LIPID, DBIL, PHOS, MG #### [facility] [address] [place] [address] Dr. Brea CauseyCalcium [Mass/Vol]8.6 mg/dLNormal8.5-10.1[facility] Comment on above:Performed By: #### URIC, CMP, LIPID, DBIL, PHOS, MG #### [facility] [address] [place] [address] Dr. Brea CauseyChloride [Moles/Vol]95 mmol/LCritically xfj68-320Xid [facility] CenterComment on above:Performed By: #### URIC, CMP, LIPID, DBIL, PHOS, MG #### [facility] [address] [place] [address] Dr. Brea CauseyCO2 [Moles/Vol]30.9 mmol/VEgmpwj20.0-32.0The [facility] Comment on above:Performed By: #### URIC, CMP, LIPID, DBIL, PHOS, MG #### [facility] [address] [place] [address] Dr. Brea CauseyCreatinine [Mass/Vol]1.00 mg/dLNormal0.70-1.30The [facility], [facility] CenterComment on above:Performed By: #### URIC, CMP, LIPID, DBIL, PHOS, MG #### [facility] [address] [place] [address] Dr. Brea NapolesGFR-AF SERBIAN>60Normal>=60The [facility], [facility] CenterComment on above:Performed By: #### URIC, CMP, LIPID, DBIL, PHOS, MG #### [facility] [address] [place] [address] Dr. Brea NapolesGFR-NON AF SERBIAN>60Normal>=60The [facility] CenterComment on above:Performed By: #### URIC, CMP, LIPID, DBIL, PHOS, MG #### [facility] [address] [place] [address] Dr. Brea CauseyGlobulin (S) [Mass/Vol]3.2 g/dLNormalThe [facility] CenterComment on above:Performed By: #### URIC, CMP, LIPID, DBIL, PHOS, MG #### [facility] [address] [place] [address] Dr. Brea CauseyGlucose [Mass/Vol]160 mg/dLCritically kktc66-129Ltm [facility] CenterComment on above:Performed By: #### URIC, CMP, LIPID, DBIL, PHOS, MG #### [facility] [address] [place] [address] Dr. Brea CauseyPotassium [Moles/Vol]5.4 mmol/LCritically high3.5-5.1The [facility] CenterComment on above:Performed By: #### URIC, CMP, LIPID, DBIL, PHOS, MG #### [facility] [address] [place] [address] Dr. Brea CauseyProtein [Mass/Vol]7.2 g/dLNormal6.4-8.2The [facility] Comment on above:Performed By: #### URIC, CMP, LIPID, DBIL, PHOS, MG #### [facility] [address] [place] [address] Dr. Brea CauseySodium [Moles/Vol]131 mmol/LCritically tfs460-424Vbl [facility] CenterComment on above:Performed By: #### URIC, CMP, LIPID, DBIL, PHOS, MG #### [facility] [address] [place] [address] Dr. Brea CauseyUrea nitrogen [Mass/Vol]11.0 mg/dLNormal7.0-18.0The [facility] CenterComment on above:Performed By: #### URIC, CMP, LIPID, DBIL, PHOS, MG #### [facility] [address] [place] [address] Dr. Brea CauseyUrea nitrogen/Creatinine [Mass ratio]11.0 mg/mgNormalThe [facility] CenterComment on above:Performed By: #### URIC, CMP, LIPID, DBIL, PHOS, MG #### [facility] [address] [place] [address] Dr. Brea CauseyURIC ACID SERUMon [id number] [Mass/Vol]5.9 mg/dLNormal 3.5-7.2The [facility] CenterComment on above:Performed By: #### URIC, CMP, LIPID, DBIL, PHOS, MG #### [facility] [address] [place] [address] Dr. Brea CauseyFK506 (TACROLIMUS) WHOLE BLOODon 71-41-3207Sorxajftde (FK506), Blood3.0 ng/mLNormal2.0-20.0The [facility], Cancer CenterComment on above:Result Comment: Trough (immediately following transplant) 15.0 . Trough (steady state, 2 weeks or more after transplant): 3.0 - 8.0 . Performed by LC-MS/MS technology.Performed By: #### URIC, CMP, LIPID, DBIL, PHOS, MG #### [facility] [address] [place] [address] Dr. Brea CauseyBILIRUBIN CONJUGATED (DIRECT)on [id number], CONJUGATED0.1 mg/dLNormal0.0-0.2The [facility] CenterComment on above:Performed By: #### URIC, CMP, LIPID, DBIL, PHOS, MG #### [facility] [address] [place] [address] Dr. Brea CauseyCBC AUTO DIFFon [id number] #0.0 103/ulNormal0.0-0.1The [facility] CenterComment on above:Performed By: #### URIC, CMP, LIPID, DBIL, PHOS, MG #### [facility] [address] [place] [address] Dr. Brea CauseyBasophils/100 WBC (Bld)0.5 %Normal0.2-2.0The [facility] Comment on above:Performed By: #### URIC, CMP, LIPID, DBIL, PHOS, MG #### [facility] [address] [place] [address] Dr. Brea Domingo #0.1 103/ulNormal0.0-0.7The [facility] CenterComment on above: Performed By: #### URIC, CMP, LIPID, DBIL, PHOS, MG #### [facility] [address] [place] [address] Dr. Brea Napolesosinophils/100 WBC (Bld)2.5 %Normal0.9-7.0The [facility] Comment on above:Performed By: #### URIC, CMP, LIPID, DBIL, PHOS, MG #### [facility] [address] [place] [address] Dr. Brea Napolesrythrocyte distribution width (RBC) [Ratio]13.3 %Utiklf53.0-15.0 The [facility], Cancer CenterComment on above:Performed By: #### URIC, CMP, LIPID, DBIL, PHOS, MG #### [facility] [address] [place] [address] Dr. Brea CauseyHematocrit (Bld) [Volume fraction]36.4 %Critically low42.0-54.0 The [facility], Cancer CenterComment on above:Performed By: #### URIC, CMP, LIPID, DBIL, PHOS, MG #### [facility] [address] [place] [address] Dr. Brea CauseyHemoglobin (Bld) [Mass/Vol]12.3 g/dLCritically low14.0-18.0The [facility], Cancer CenterComment on above:Performed By: #### URIC, CMP, LIPID, DBIL, PHOS, MG #### [facility] [address] [place] [address] Dr. Brea Monreal #0.03 10e3/ulNormal0.00-0.03The [facility], Cancer CenterComment on above:Performed By: #### URIC, CMP, LIPID, DBIL, PHOS, MG #### [facility] [address] [place] [address] Dr. Brea Monreal %0.5 %Normal0.0-0.5The [facility], Cancer CenterComment on above: Performed By: #### URIC, CMP, LIPID, DBIL, PHOS, MG #### [facility] [address] [place] [address] Dr. Brea Hopkins #0.9 103/ulCritically low1.2-3.8The [facility] Comment on above:Performed By: #### URIC, CMP, LIPID, DBIL, PHOS, MG #### [facility] [address] [place] [address] Dr. Brea Cheathamhocytes/100 WBC (Bld)16.9 %Critically low20.5-60.0The [facility], Cancer CenterComment on above:Performed By: #### URIC, CMP, LIPID, DBIL, PHOS, MG #### [facility] [address] [place] [address] Dr. Brea AscencioUAL DIFF REQNONormalThe [facility], Cancer CenterComment on above: Performed By: #### URIC, CMP, LIPID, DBIL, PHOS, MG #### [facility] [address] [place] [address] Dr. Bre[facility]yFLUSHING [facility] (RBC) [Entitic mass]29.3 bgMswsqx14.9-34.0The [facility], Cancer CenterComment on above:Performed By: #### URIC, CMP, LIPID, DBIL, PHOS, MG #### [facility] [address] [place] [address] Dr. Brea Freire (RBC) [Mass/Vol]33.8 g/aIOheagw64.9-35.2The [facility], [facility] CenterComment on above:Performed By: #### URIC, CMP, LIPID, DBIL, PHOS, MG #### [facility] [address] [place] [address] Dr. Brea Arevalo (RBC) [Entitic vol]86.7 dAPqjbur54.0-94.0The [facility], Cancer CenterComment on above:Performed By: #### URIC, CMP, LIPID, DBIL, PHOS, MG #### [facility] [address] [place] [address] Dr. Brea Molina #0.6 103/ulNormal0.3-0.8The [facility], Cancer CenterComment on above:Performed By: #### URIC, CMP, LIPID, DBIL, PHOS, MG #### [facility] [address] [place] [address] Dr. Brea Krishnanocytes/100 WBC (Bld)10.1 %Normal1.7-12.0The [facility] Comment on above:Performed By: #### URIC, CMP, LIPID, DBIL, PHOS, MG #### [facility] [address] [place] [address] Dr. Brea Lewis #3.9 103/ulNormal1.4-6.5The [facility], Cancer CenterComment on above:Performed By: #### URIC, CMP, LIPID, DBIL, PHOS, MG #### [facility] [address] [place] [address] Dr. Brea Doutrophils/100 WBC (Bld)69.5 %Ngzatx48.0-75.0The [facility] Hospitalment on above:Performed By: #### URIC, CMP, LIPID, DBIL, PHOS, MG #### [facility] [address] [place] [address] Dr. Brea Mahmood mean volume (Bld) [Entitic vol]9.2 fLCritically low 9.5-13.5The [facility], Cancer CenterComment on above:Performed By: #### URIC, CMP, LIPID, DBIL, PHOS, MG #### [facility] [address] [place] [address] Dr. Brea CauseyPLT228 103/cmNqcoco818-755XfcCleveland Clinicment on above: Performed By: #### URIC, CMP, LIPID, DBIL, PHOS, MG #### [facility] [address] [place] [address] Dr. Brea CauseyRBC4.20 106/ulCritically low4.70-6.10The [facility] on above:Performed By: #### URIC, CMP, LIPID, DBIL, PHOS, MG #### [facility] [address] [place] [address] Dr. Brea CauseyWBC5.6 103/ulNormal4.0-11.0The [facility] Cancer CenterComselect specialty hospital on above: Performed By: #### URIC, CMP, LIPID, DBIL, PHOS, MG #### [facility] [address] [place] [address] Dr. Brea CoatsID PROFILEon [id number]-HDL RATIO [facility] on above:Result Comment: 3.3 - 4.4 LOW RISK 4.4 - 7.1 AVERAGE RISK 7.1 - 11.0 MODERATE RISK >11.0 HIGH RISKPerformed By: #### URIC, CMP, LIPID, DBIL, PHOS, MG #### [facility] [address] [place] [address] Dr. Brea CauseyCholesterol [Mass/Vol]84 mg/dLNormal<=200The [facility] Comment on above:Performed By: #### URIC, CMP, LIPID, DBIL, PHOS, MG #### [facility] [address] [place] [address] Dr. Brea CauseyCholesterol in HDL [Mass/Vol]45 mg/bZTnsslj81-32XmeTriHealth on above:Performed By: #### URIC, CMP, LIPID, DBIL, PHOS, MG #### [facility] [address] [place] [address] Dr. Brea CauseyCholesterol in LDL [Mass/Vol]22.8 mg/dLParkview Health Montpelier HospitalComment on above:Performed By: #### URIC, CMP, LIPID, DBIL, PHOS, MG #### [facility] [address] [place] [address] Dr. Brea CauseyCholesterol.total/Cholesterol in HDL [Mass ratio]1.9 {ratio} NormalSt. Rita'S HospitalComselect specialty hospital on above:Performed By: #### URIC, CMP, LIPID, DBIL, PHOS, MG #### [facility] [address] [place] [address] Dr. Brea CauseyHDJanae NORMAL> or = 60 mg/dl - LOW CARDIOVASCULAR RISK <40 mg/dl - HIGH CARDIOVASCULAR RISKParkview Health Montpelier HospitalComment on above:Performed By: #### URIC, CMP, LIPID, DBIL, PHOS, MG #### [facility] [address] [place] [address] Dr. Brea CauseyLDL CALC NORMALSEE BELOWParkview Health Montpelier HospitalComment on above:Result Comment: <100 mg/dl OPTIMAL 100 - 129 mg/dl NEAR OR ABOVE OPTIMAL 130 - 159 mg/dl BORDERLINE HIGH 160 - 189 mg/dl HIGH >190 mg/dl VERY HIGH Performed By: #### URIC, CMP, LIPID, DBIL, PHOS, MG #### [facility] [address] [place] [address] Dr. Brea CauseyTriglyceride [Mass/Vol]81 mg/dLNormal<=150[facility] Comment on above:Performed By: #### URIC, CMP, LIPID, DBIL, PHOS, MG #### [facility] [address] [place] [address] Dr. Brea CauseyVLDL CALC16.2 mg/dLParkview Health Montpelier HospitalComselect specialty hospital on above: Performed By: #### URIC, CMP, LIPID, DBIL, PHOS, MG #### [facility] [address] [place] [address] Dr. Brea CauseyMAGNESIUMon [id number] [Mass/Vol]1.6 mg/dLCritically low 1.8-2.4ThAvita Health System Bucyrus HospitalComment on above:Performed By: #### URIC, CMP, LIPID, DBIL, PHOS, MG #### [facility] [address] [place] [address] Dr. Brea PradoUSon [id number] [Mass/Vol]3.9 mg/dLNormal2.6-4.7 The [facility], Cancer CenterComment on above:Performed By: #### URIC, CMP, LIPID, DBIL, PHOS, MG #### [facility] [address] [place] [address] Dr. Brea CauseyPROF 14(COMP METB)on [id number] [Mass/Vol]4.0 g/dLNormal 3.4-5.0The [facility], Cancer CenterComment on above:Performed By: #### URIC, CMP, LIPID, DBIL, PHOS, MG #### [facility] [address] [place] [address] Dr. Brea CauseyAlbumin/Globulin [Mass ratio]1.2 {ratio}NormalThe [facility], Cancer CenterComment on above:Performed By: #### URIC, CMP, LIPID, DBIL, PHOS, MG #### [facility] [address] [place] [address] Dr. Brea Guzman [Catalytic activity/Vol]196 U/LCritically itph78-626Nut [facility], [facility] CenterComment on above:Performed By: #### URIC, CMP, LIPID, DBIL, PHOS, MG #### [facility] [address] [place] [address] Dr. Brea Diaz [Catalytic activity/Vol]19 U/MPjvoli72-84Jbi [facility] Hospitalment on above:Performed By: #### URIC, CMP, LIPID, DBIL, PHOS, MG #### [facility] [address] [place] [address] Dr. Brea Vieira gap [Moles/Vol]10.2 mmol/LNormalThe [facility] on above:Performed By: #### URIC, CMP, LIPID, DBIL, PHOS, MG #### [facility] [address] [address] [address] Brea CauseyAST [Catalytic activity/Vol]15 U/AKvcgng50-80Peg [facility], [facility] CenterComment on above:Performed By: #### URIC, CMP, LIPID, DBIL, PHOS, MG #### [facility] [address] [place] [address] Dr. Brea CauseyBilirubin [Mass/Vol]0.3 mg/dLNormal0.2-1.0The [facility] Comment on above:Performed By: #### URIC, CMP, LIPID, DBIL, PHOS, MG #### [facility] [address] [place] [address] Dr. Brea CauseyCalcium [Mass/Vol]8.2 mg/dLCritically low8.5-10.1The [facility], Cancer CenterComment on above:Performed By: #### URIC, CMP, LIPID, DBIL, PHOS, MG #### [facility] [address] [place] [address] Dr. Brea CauseyChloride [Moles/Vol]97 mmol/LCritically rox42-683Xgp [facility] CenterComment on above:Performed By: #### URIC, CMP, LIPID, DBIL, PHOS, MG #### [facility] [address] [place] [address] Dr. Brea CauseyCO2 [Moles/Vol]28.2 mmol/MYkbwap11.0-32.0The [facility] Comment on above:Performed By: #### URIC, CMP, LIPID, DBIL, PHOS, MG #### [facility] [address] [place] [address] Dr. Brea CauseyCreatinine [Mass/Vol]1.00 mg/dLNormal0.70-1.30The [facility], Cancer CenterComment on above:Performed By: #### URIC, CMP, LIPID, DBIL, PHOS, MG #### [facility] [address] [place] [address] Dr. Guidry ChangEGFR-AF SERBIAN>60Normal>=60The [facility], Cancer CenterComment on above:Performed By: #### URIC, CMP, LIPID, DBIL, PHOS, MG #### [facility] [address] [place] [address] Dr. Brea NapolesGFR-NON AF SERBIAN>60Normal>=60The [facility], Cancer CenterComment on above:Performed By: #### URIC, CMP, LIPID, DBIL, PHOS, MG #### [facility] [address] [place] [address] Dr. Brea CauseyGlobulin (S) [Mass/Vol]3.3 g/dLNormalThe [facility], [facility] CenterComment on above:Performed By: #### URIC, CMP, LIPID, DBIL, PHOS, MG #### [facility] [address] [place] [address] Dr. Brea CauseyGlucose [Mass/Vol]164 mg/dLCritically wqro00-545Oxz [facility] CenterComment on above:Performed By: #### URIC, CMP, LIPID, DBIL, PHOS, MG #### [facility] [address] [place] [address] Dr. Brea CauseyPotassium [Moles/Vol]4.4 mmol/LNormal3.5-5.1The [facility] Comment on above:Performed By: #### URIC, CMP, LIPID, DBIL, PHOS, MG #### [facility] [address] [place] [address] Dr. Brea CauseyProtein [Mass/Vol]7.3 g/dLNormal6.4-8.2The [facility] Comment on above:Performed By: #### URIC, CMP, LIPID, DBIL, PHOS, MG #### [facility] [address] [place] [address] Dr. Brea CauseySodium [Moles/Vol]131 mmol/LCritically bhz905-315Kus [facility] Hospitalment on above:Performed By: #### URIC, CMP, LIPID, DBIL, PHOS, MG #### [facility] [address] [place] [address] Dr. Brea CauseyUrea nitrogen [Mass/Vol]13.0 mg/dLNormal7.0-18.0The [facility] Hospitalment on above:Performed By: #### URIC, CMP, LIPID, DBIL, PHOS, MG #### [facility] [address] [place] [address] Dr. Brea CauseyUrea nitrogen/Creatinine [Mass ratio]13.0 mg/mgNormalThe [facility] CenterComselect specialty hospital on above:Performed By: #### URIC, CMP, LIPID, DBIL, PHOS, MG #### [facility] [address] [place] [address] Dr. Brea CauseyURIC ACID SERUMon [id number] [Mass/Vol]6.1 mg/dLNormal 3.5-7.2The [facility], Cancer CenterComment on above:Performed By: #### URIC, CMP, LIPID, DBIL, PHOS, MG #### [facility] [address] [place] [address] Dr. Brea CauesyTESTOSTERONE, FREE,DIRECT, TOTALon [id number] Testosterone(Direct)6.9 pg/mLNormal6.6-18.1The [facility] Cancer CenterComselect specialty hospital on above:Result Comment: Performed at: BNPerformed By: #### TESTFRD #### [facility] [address] [place] [address] Dr. Brea CauseyTestosterone [Mass/Vol]428 ng/jIWrwhrx669-003Iup [facility] CenterComselect specialty hospital on above:Result Comment: Adult male reference interval is based on a population of healthy nonobese males (BMI <30) between 19 and 39 years old. Steven et.al. JCEM 2017,102;4084-5141. PMID: [id number]. Performed at: CBPerformed By: #### TESTFRD #### [facility] [address] [place] [address] Dr. Brea CauseyBK VIRUS PCR QUANTon [id number] DNA QUANT PCR PLASMANegative NormalNegativeThe [facility] on above:Result Comment: No BK DNA detected. . The linear range of the assay is 22 - 100,000,000 IU/mL.Performed By: #### BKVIRUS #### [facility] [address] [place] [address] Dr. Brea CauseyLog10 BKV DNA PlasmaNormalThe [facility], Cancer CenterComment on above: Performed By: #### BKVIRUS #### [facility] [address] [place] [address] Dr. Brea CauseyFK506 (TACROLIMUS) WHOLE BLOODon 36-35-7221Spxsqqllbg (FK506), Blood4.7 ng/mLNormal2.0-20.0The [facility], Cancer CenterComment on above:Result Comment: Trough (immediately following transplant) 15.0 . Trough (steady state, 2 weeks or more after transplant): 3.0 - 8.0 . Performed by LC-MS/MS technology.Performed By: #### CBC #### [facility] [address] [place] [address] Dr. Brea CauseyBILIRUBIN CONJUGATED (DIRECT)on [id number], CONJUGATED0.1 mg/dLNormal0.0-0.2The [facility], Cancer CenterComment on above:Performed By: #### URIC, CMP, LIPID, DBIL, PHOS, MG #### [facility] [address] [place] [address] Dr. Brea StanfordC AUTO DIFFon [id number] #0.0 103/ulNormal0.0-0.1The [facility], Cancer CenterComment on above:Performed By: #### URIC, CMP, LIPID, DBIL, PHOS, MG #### [facility] [address] [place] [address] Dr. Brea CauseyBasophils/100 WBC (Bld)0.7 %Normal0.2-2.0The [facility] Comment on above:Performed By: #### URIC, CMP, LIPID, DBIL, PHOS, MG #### [facility] [address] [place] [address] Dr. Brea Domingo #0.2 103/ulNormal0.0-0.7The [facility], Cancer CenterComment on above: Performed By: #### URIC, CMP, LIPID, DBIL, PHOS, MG #### [facility] [address] [address] [address] Brea Napolesosinophils/100 WBC (Bld)3.1 %Normal0.9-7.0[facility] Comment on above:Performed By: #### URIC, CMP, LIPID, DBIL, PHOS, MG #### [facility] [address] [place] [address] Dr. Brea Napolesrythrocyte distribution width (RBC) [Ratio]13.3 %Ruqqku56.0-15.0 The [facility], [facility] CenterComment on above:Performed By: #### URIC, CMP, LIPID, DBIL, PHOS, MG #### [facility] [address] [place] [address] Dr. Brea CauseyHematocrit (Bld) [Volume fraction]35.7 %Critically low42.0-54.0 The [facility], [facility] CenterComment on above:Performed By: #### URIC, CMP, LIPID, DBIL, PHOS, MG #### [facility] [address] [place] [address] Dr. Brea CauseyHemoglobin (Bld) [Mass/Vol]12.0 g/dLCritically low14.0-18.0The [facility], [facility] CenterComment on above:Performed By: #### URIC, CMP, LIPID, DBIL, PHOS, MG #### [facility] [address] [place] [address] Dr. Brea Monreal #0.06 10e3/ulCritically high0.00-0.03The [facility] Comment on above:Performed By: #### URIC, CMP, LIPID, DBIL, PHOS, MG #### [facility] [address] [place] [address] Dr. Brea Monreal %1.0 %Critically high0.0-0.5The [facility], Cancer CenterComment on above:Performed By: #### URIC, CMP, LIPID, DBIL, PHOS, MG #### [facility] [address] [place] [address] Dr. Brea Hopkins #0.8 103/ulCritically low1.2-3.8The [facility] Comment on above:Performed By: #### URIC, CMP, LIPID, DBIL, PHOS, MG #### [facility] [address] [place] [address] Dr. Brea Arboledamphocytes/100 WBC (Bld)12.9 %Critically low20.5-60.0The [facility], Cancer CenterComment on above:Performed By: #### URIC, CMP, LIPID, DBIL, PHOS, MG #### [facility] [address] [place] [address] Dr. Brea AscencioUAL DIFF REQNONormalThe [facility] Cancer CenterComment on above: Performed By: #### URIC, CMP, LIPID, DBIL, PHOS, MG #### [facility] [address] [place] [address] Dr. Brea Freire (RBC) [Entitic mass]29.5 lvKwdkxk06.9-34.0The [facility], Cancer CenterComment on above:Performed By: #### URIC, CMP, LIPID, DBIL, PHOS, MG #### [facility] [address] [place] [address] Dr. Brea Freire (RBC) [Mass/Vol]33.6 g/pDLiyatr04.9-35.2The [facility], Cancer CenterComment on above:Performed By: #### URIC, CMP, LIPID, DBIL, PHOS, MG #### [facility] [address] [place] [address] Dr. Bre[facility]yMER[facility] [place] [Entitic vol]87.7 xAOxjwln61.0-94.0The [facility], Cancer CenterComment on above:Performed By: #### URIC, CMP, LIPID, DBIL, PHOS, MG #### [facility] [address] [place] [address] Dr. Brea Molina #0.6 103/ulNormal0.3-0.8The [facility], Cancer CenterComment on above:Performed By: #### URIC, CMP, LIPID, DBIL, PHOS, MG #### [facility] [address] [place] [address] Dr. Brea Krishnanocytes/100 WBC (Bld)9.8 %Normal1.7-12.0The [facility] Comment on above:Performed By: #### URIC, CMP, LIPID, DBIL, PHOS, MG #### [facility] [address] [place] [address] Dr. Brea DoUT #4.4 103/ulNormal1.4-6.5The [facility], Cancer CenterComment on above:Performed By: #### URIC, CMP, LIPID, DBIL, PHOS, MG #### [facility] [address] [place] [address] Dr. Brea Doutrophils/100 WBC (Bld)72.5 %Qyvlnq43.0-75.0The [facility], Cancer CenterComment on above:Performed By: #### URIC, CMP, LIPID, DBIL, PHOS, MG #### [facility] [address] [place] [address] Dr. Brea CauseyPlatelet mean volume (Bld) [Entitic vol]9.6 fLNormal9.5-13.5The [facility] Cancer CenterComment on above:Performed By: #### URIC, CMP, LIPID, DBIL, PHOS, MG #### [facility] [address] [place] [address] Dr. Brea CauseyPLT265 103/nrKvxrmv005-234Dtv [facility] CenterComment on above: Performed By: #### URIC, CMP, LIPID, DBIL, PHOS, MG #### [facility] [address] [place] [address] Dr. Brea CauseyRBC4.07 106/ulCritically low4.70-6.10The [facility], Cancer CenterComment on above:Performed By: #### URIC, CMP, LIPID, DBIL, PHOS, MG #### [facility] [address] [place] [address] Dr. Brea CauseyWBC6.0 103/ulNormal4.0-11.0The [facility] Cancer CenterComment on above: Performed By: #### URIC, CMP, LIPID, DBIL, PHOS, MG #### [facility] [address] [address] [address] Brea CauseyGLYCOHEMOGLOBIN A1Con 14-71-1366SDO RECOMMENDATIONSEE BELOWUpper Valley Medical CenterComselect specialty hospital on above:Result Comment: ADA RECOMMENDED LIMIT 4.0 - 6.0 ADA THERAPEUTIC TARGET < 7.0 ACTION SUGGESTED > 7.0Performed By: #### URIC, CMP, LIPID, DBIL, PHOS, MG #### [facility] [address] [address] [address] Brea CauseyGlucose [Mass/Vol]169 mg/dLNoUniversity Hospitals Lake West Medical CenterComment on above:Performed By: #### URIC, CMP, LIPID, DBIL, PHOS, MG #### [facility] [address] [place] [address] Dr. Brea CauseyHbA1c (Bld) [Mass fraction]7.5 %Critically high4.5-6.2St. Rita'S HospitalComment on above:Performed By: #### URIC, CMP, LIPID, DBIL, PHOS, MG #### [facility] [address] [place] [address] Dr. Brea CauseyLIPID PROFILEon [id number]-HDL RATIO NORMSEE [facility] Children[facility] HospitalComselect specialty hospital on above:Result Comment: 3.3 - 4.4 LOW RISK 4.4 - 7.1 AVERAGE RISK 7.1 - 11.0 MODERATE RISK >11.0 HIGH RISKPerformed By: #### URIC, CMP, LIPID, DBIL, PHOS, MG #### [facility] [address] [place] [address] Dr. Brea CauseyCholesterol [Mass/Vol]77 mg/dLNormal<=200The [facility] Comment on above:Performed By: #### URIC, CMP, LIPID, DBIL, PHOS, MG #### [facility] [address] [place] [address] Dr. Brea CauseyCholesterol in HDL [Mass/Vol]49 mg/tSPsngow16-75Gzg [facility] CenterComment on above:Performed By: #### URIC, CMP, LIPID, DBIL, PHOS, MG #### [facility] [address] [address] [address] Brea CauseyCholesterol in LDL [Mass/Vol]20.4 mg/dLNoUniversity Hospitals Lake West Medical CenterComment on above:Performed By: #### URIC, CMP, LIPID, DBIL, PHOS, MG #### [facility] [address] [place] [address] Dr. Brea Joseph.total/Cholesterol in HDL [Mass ratio]1.6 {ratio} NormalSt. Rita'S HospitalComment on above:Performed By: #### URIC, CMP, LIPID, DBIL, PHOS, MG #### [facility] [address] [place] [address] Dr. Brea Padilla NORMAL> or = 60 mg/dl - LOW CARDIOVASCULAR RISK <40 mg/dl - HIGH CARDIOVASCULAR RISKNoUniversity Hospitals Lake West Medical CenterComment on above:Performed By: #### URIC, CMP, LIPID, DBIL, PHOS, MG #### [facility] [address] [place] [address] Dr. Brea Culp CALC NORMALSEE BELOWParkview Health Montpelier HospitalComment on above:Result Comment: <100 mg/dl OPTIMAL 100 - 129 mg/dl NEAR OR ABOVE OPTIMAL 130 - 159 mg/dl BORDERLINE HIGH 160 - 189 mg/dl HIGH >190 mg/dl VERY HIGH Performed By: #### URIC, CMP, LIPID, DBIL, PHOS, MG #### [facility] [address] [place] [address] Dr. Brea CauseyTriglyceride [Mass/Vol]38 mg/dLNormal<=150[facility] Comment on above:Performed By: #### URIC, CMP, LIPID, DBIL, PHOS, MG #### [facility] [address] [place] [address] Dr. Brea CauseyVLDL CALC7.6 mg/dLParkview Health Montpelier HospitalComment on above: Performed By: #### URIC, CMP, LIPID, DBIL, PHOS, MG #### [facility] [address] [place] [address] Dr. Brea CauseyMAGNESIUMon 36-92-0511Muifprfzr [Mass/Vol]1.5 mg/dLCritically low 1.8-2.4The [facility], Cancer CenterComment on above:Performed By: #### URIC, CMP, LIPID, DBIL, PHOS, MG #### [facility] [address] [place] [address] Dr. Brea CauseyPHOSPHORUSon 35-82-4238Qxeomfotq [Mass/Vol]3.6 mg/dLNormal2.6-4.7 The [facility], Cancer CenterComment on above:Performed By: #### URIC, CMP, LIPID, DBIL, PHOS, MG #### [facility] [address] [place] [address] Dr. Brea Mobley 14(COMP METB)on 81-14-2266Auhruqq [Mass/Vol]4.0 g/dLNormal 3.4-5.0The [facility] Hospitalment on above:Performed By: #### URIC, CMP, LIPID, DBIL, PHOS, MG #### [facility] [address] [place] [address] Dr. Brea CauseyAlbumin/Globulin [Mass ratio]1.2 {ratio}NormalThe [facility] on above:Performed By: #### URIC, CMP, LIPID, DBIL, PHOS, MG #### [facility] [address] [place] [address] Dr. Brea Guzman [Catalytic activity/Vol]176 U/LCritically lcrb35-549Sdw [facility] on above:Performed By: #### URIC, CMP, LIPID, DBIL, PHOS, MG #### [facility] [address] [address] [address] Brea Diaz [Catalytic activity/Vol]21 U/YTnhsiz48-55Tge [facility] Hospitalment on above:Performed By: #### URIC, CMP, LIPID, DBIL, PHOS, MG #### [facility] [address] [address] [address] Yilan ChangAnion gap [Moles/Vol]12.0 mmol/LNormalThe [facility] Comment on above:Performed By: #### URIC, CMP, LIPID, DBIL, PHOS, MG #### [facility] [address] [place] [address] Dr. Brea CauseyAST [Catalytic activity/Vol]13 U/LCritically ipb18-17Ayc [facility] CenterComment on above:Performed By: #### URIC, CMP, LIPID, DBIL, PHOS, MG #### [facility] [address] [place] [address] Dr. Brea CauseyBilirubin [Mass/Vol]0.3 mg/dLNormal0.2-1.0[facility] Comment on above:Performed By: #### URIC, CMP, LIPID, DBIL, PHOS, MG #### [facility] [address] [place] [address] Dr. Brea CauseyCalcium [Mass/Vol]7.9 mg/dLCritically low8.5-10.1The [facility], [facility] CenterComment on above:Performed By: #### URIC, CMP, LIPID, DBIL, PHOS, MG #### [facility] [address] [place] [address] Dr. Brea CauseyChloride [Moles/Vol]100 mmol/VHtsssx01-461OuwSt. Rita'S Hospital Comment on above:Performed By: #### URIC, CMP, LIPID, DBIL, PHOS, MG #### [facility] [address] [place] [address] Dr. Brea CauseyCO2 [Moles/Vol]27.3 mmol/HCbjcbs56.0-32.0The [facility] Comment on above:Performed By: #### URIC, CMP, LIPID, DBIL, PHOS, MG #### [facility] [address] [place] [address] Dr. Brea CauseyCreatinine [Mass/Vol]1.00 mg/dLNormal0.70-1.30The [facility] CenterComment on above:Performed By: #### URIC, CMP, LIPID, DBIL, PHOS, MG #### [facility] [address] [address] [address] Brea NapolesGFR-AF SERBIAN>60Normal>=60The [facility] CenterComment on above:Performed By: #### URIC, CMP, LIPID, DBIL, PHOS, MG #### [facility] [address] [place] [address] Dr. Brea NapolesGFR-NON AF SERBIAN>60Normal>=60The [facility] CenterComment on above:Performed By: #### URIC, CMP, LIPID, DBIL, PHOS, MG #### [facility] [address] [place] [address] Dr. Brea CauseyGlobulin (S) [Mass/Vol]3.3 g/dLNormalThe [facility] CenterComment on above:Performed By: #### URIC, CMP, LIPID, DBIL, PHOS, MG #### [facility] [address] [place] [address] Dr. Brea CauseyGlucose [Mass/Vol]155 mg/dLCritically atky28-487Atz [facility] CenterComment on above:Performed By: #### URIC, CMP, LIPID, DBIL, PHOS, MG #### [facility] [address] [place] [address] Dr. Brea CauseyPotassium [Moles/Vol]4.3 mmol/LNormal3.5-5.1[facility] Comment on above:Performed By: #### URIC, CMP, LIPID, DBIL, PHOS, MG #### [facility] [address] [place] [address] Dr. Brae CauseyProtein [Mass/Vol]7.3 g/dLNormal6.4-8.2The [facility] Comment on above:Performed By: #### URIC, CMP, LIPID, DBIL, PHOS, MG #### [facility] [address] [place] [address] Dr. Brea CauseySodium [Moles/Vol]135 mmol/LCritically gvj161-893Mfy [facility] Hospitalment on above:Performed By: #### URIC, CMP, LIPID, DBIL, PHOS, MG #### [facility] [address] [place] [address] Dr. Brea CauseyUrea nitrogen [Mass/Vol]13.0 mg/dLNormal7.0-18.0The [facility] on above:Performed By: #### URIC, CMP, LIPID, DBIL, PHOS, MG #### [facility] [address] [place] [address] Dr. Brea CauseyUrea nitrogen/Creatinine [Mass ratio]13.0 mg/mgNormalThe [facility] CenterComselect specialty hospital on above:Performed By: #### URIC, CMP, LIPID, DBIL, PHOS, MG #### [facility] [address] [place] [address] Dr. Brea CauseyURIC ACID SERUMon 20-11-4998Aiety [Mass/Vol]7.3 mg/dLCritically high3.5-7.2The [facility] on above:Performed By: #### URIC, CMP, LIPID, DBIL, PHOS, MG #### [facility] [address] [place] [address] Dr. Brea Woodward 03-05-2022 Specimen: [id number] Received: 03/05/22 Status: CHERI Irene Num: [id number] Spec Type: Surgical Subm Dr: Tj Wells MD Tissues: A Colon Biopsy (COLON BX) B Colon Biopsy (DIVERTICULAR COLITIS) Procedures: HE Stain/4, Gross/Micro L4/2 Age/ Patient Sex Location Account Attending Physician Roger Suarez 71/[facility] [id number] Tj Wells MD SPEC NUM: [id number] RECD: 03/05/22 STATUS: CHERI FAIR NUM: [id number] ESTEFANI: 03/05/22 DR: Tj Wells MD ENTERED: 03/05/[address]: MICHELLE TYPE: Surgical DEPT: S [...] Entirely submitted in one cassette labeled B1. Specimen: [id number] Received: 03/05/22 Status: CHERI Fair Num: [id number] Spec Type: Surgical Subm Dr: Tj Wells MD Tissues: A Colon Biopsy (COLON BX) B Colon Biopsy (DIVERTICULAR COLITIS) Procedures: HE Stain/4, Gross/Micro L4/2 Patient: Roger Suarez [id number] (Continued) Specimen: [id number] Received: 03/05/22 (Continued) Signed (signature on file) Kalpana Shaw MD 03/07/22 1025 Specimen: [id number] Received: 03/05/22 Status: CHERI Fair Num: [id number] Spec Type: Surgical Subm Dr: Tj Wells MD Tissues: A Colon Biopsy (COLON BX) B Colon Biopsy (DIVERTICULAR COLITIS) Procedures: HE Stain/4, Gross/Micro L4/2 Patient: Roger Suarez [id number] (Continued) Specimen: [id number] Received: 03/05/22-999 (Continued) Microscopic Description A. Two glass slides with H E stained material have been examined. The microscopic findings support the above pathologic diagnosis. B. Two glass slides with H E stained material have been examined. The microscopic findings support the above pathologic diagnosis. CPT Codes 32959?2 Specimen: [id number] Received: 03/05/22 Status: CHERI Fair Num: [id number] Spec Type: Surgical Subm Dr: Tj Wells MD Tissues: A Colon Biopsy (COLON BX) B Colon Biopsy (DIVERTICULAR COLITIS) Procedures: HE Stain/4, Gross/Micro L4/2 Patient: Roger Suarez [id number] (Continued) Signed (signature on file) Kalpana Shaw MD 03/07/22 1025 [facility] CenterCOVID-19 Antigenon [id number]-19 AntigenHealthcare Worker?: N Reference Range: Negative Negative results, [...] developed and its performance characteristic determined by [employer] and validated at [facility]. This test has not been FDA [...] for SARS Antigen by ROCHELLE PERFORMED BY: [place] [address] PATHOLOGIST COST ESTIMATOR FEI WOODRUFF M.D.[facility] CenterComment on above: Performed By: #### COVID-19 MARQUISE, SOFIANEG #### [place] [address] USACOVID-19 SOFIAOrdered By: Tj Wells on 03-01-2022 SARS-CoV+SARS-CoV-2 (COVID-19) Ag IA.rapid Ql (Resp)NegativeNegSumma Health Barberton CampusComment on above:This is a duplicate Marquise SARS Antigen (ROCHELLE) result to be used for statistical tracking purpose only.No Panel InformationOrdered By: Tj Wells on [id number] Antigen (LFIA) [facility] Hospitalofia Ag Negativeon 05-69-9636Cmxyw Ag Negative NegativeNormalNegSumma Health Barberton CampusComment on above:Result Comment: This is a duplicate Marquise SARS Antigen (ROCHELLE) result to be used for statistical tracking purpose only. PERFORMED BY: [place] [address] PATHOLOGIST COST ESTIMATOR FEI WOODRUFF M.D.Performed By: #### COVID-19 MARQUISE, SOFIANEG #### [facility] [address] [place] [address] [id number] (TACROLIMUS) WHOLE BLOODon [id number] (FK506), Blood5.4 ng/mLNormal2.0-20.0The [facility] CenterComment on above: Result Comment: Trough (immediately following transplant) 15.0 . Trough (steady state, 2 weeks or more after transplant): 3.0 - 8.0 . Performed by LC-MS/MS technology.Performed By: #### URIC, CMP, LIPID, DBIL, PHOS, MG #### [facility] [address] [place] [address] Dr. Brea CauseyBILIRUBIN CONJUGATED (DIRECT)on [id number], CONJUGATED0.1 mg/dLNormal0.0-0.2St. [facility]'S HospitalComment on above:Performed By: #### CBC #### [facility] [address] [place] [address] Dr. Brea Reis AUTO DIFFon [id number] #0.0 103/ulNormal0.0-0.1St. Rita'S HospitalComment on above:Performed By: #### BKVIRUS #### [facility] [address] [place] [address] Dr. Brea Mejiasophils/100 WBC (Bld)0.6 %Normal0.2-2.0[facility] Comment on above:Performed By: #### BKVIRUS #### [facility] [address] [place] [address] Dr. Brea Domingo #0.2 103/ulNormal0.0-0.7The [facility] CenterComment on above: Performed By: #### BKVIRUS #### [facility] [address] [place] [address] Dr. Brea Napolesosinophils/100 WBC (Bld)3.5 %Normal0.9-7.0[facility] Comment on above:Performed By: #### BKVIRUS #### [facility] [address] [place] [address] Dr. Yilan ChangErythrocyte distribution width (RBC) [Ratio]13.0 %Cfisaz03.0-15.0 [facility] [facility]'S HospitalComment on above:Performed By: #### BKVIRUS #### [facility] [address] [place] [address] Dr. Brea CauseyHematocrit (Bld) [Volume fraction]36.9 %Critically low42.0-54.0 The [facility], Cancer CenterComment on above:Performed By: #### BKVIRUS #### [facility] [address] [place] [address] Dr. Brea CauseyHemoglobin (Bld) [Mass/Vol]12.0 g/dLCritically low14.0-18.0St[facility]'S HospitalComment on above:Performed By: #### BKVIRUS #### [facility] [address] [place] [address] Dr. Brea Monreal #0.07 10e3/ulCritically high0.00-0.03[facility] Comment on above:Performed By: #### BKVIRUS #### [facility] [address] [place] [address] Dr. Brea Monreal %1.0 %Critically high0.0-0.5ThAvita Health System Bucyrus HospitalComment on above:Performed By: #### BKVIRUS #### [facility] [address] [place] [address] Dr. Brea CheathamH #1.0 103/ulCritically low1.2-3.8ThAvita Health System Bucyrus Hospital Comment on above:Performed By: #### BKVIRUS #### [facility] [address] [place] [address] Dr. Brea Arboledamphocytes/100 WBC (Bld)14.2 %Critically low20.5-60.0St. [facility]'S HospitalComment on above:Performed By: #### BKVIRUS #### [facility] [address] [place] [address] Dr. Brea AscencioUAL DIFF REQNONormalThe [facility], Cancer CenterComment on above: Performed By: #### BKVIRUS #### [facility] [address] [place] [address] Dr. Brea Freire (RBC) [Entitic mass]29.1 mcGeygxy50.9-34.0The [facility], Cancer CenterComment on above:Performed By: #### BKVIRUS #### [facility] [address] [place] [address] Dr. Brea Freire (RBC) [Mass/Vol]32.5 g/vQRmgony01.9-35.2The [facility] HospitalComment on above:Performed By: #### BKVIRUS #### [facility] [address] [place] [address] Dr. Brea Arevalo (RBC) [Entitic vol]89.6 uGTrpqfg28.0-94.0The [facility] Cancer CenterComment on above:Performed By: #### BKVIRUS #### [facility] [address] [place] [address] Dr. Brea Molina #0.7 103/ulNormal0.3-0.8The [facility] Cancer CenterComment on above:Performed By: #### BKVIRUS #### [facility] [address] [place] [address] Dr. Brea Krishnanocytes/100 WBC (Bld)9.9 %Normal1.7-12.0The [facility] Comment on above:Performed By: #### BKVIRUS #### [facility] [address] [place] [address] Dr. Brea Lewis #4.9 103/ulNormal1.4-6.5The [facility] Cancer CenterComment on above:Performed By: #### BKVIRUS #### [facility] [address] [place] [address] Dr. Brea Doutrophils/100 WBC (Bld)70.8 %Ahyvsj46.0-75.0The [facility], Cancer CenterComment on above:Performed By: #### BKVIRUS #### [facility] [address] [place] [address] Dr. Brea Galvanlet mean volume (Bld) [Entitic vol]9.6 fLNormal9.5-13.5The [facility], Cancer CenterComment on above:Performed By: #### BKVIRUS #### [facility] [address] [address] [address] Brea CauseyPLT247 103/phQubiyh232-361Biq [facility] Cancer CenterComselect specialty hospital on above: Performed By: #### BKVIRUS #### [facility] [address] [place] [address] Dr. Brea CauseyRBC4.12 106/ulCritically low4.70-6.10The [facility] Cancer CenterComment on above:Performed By: #### BKVIRUS #### [facility] [address] [place] [address] Dr. Brea CauseyWBC6.9 103/ulNormal4.0-11.0The [facility] Cancer CenterComselect specialty hospital on above: Performed By: #### BKVIRUS #### [facility] [address] [place] [address] Dr. Brea CauseyLIPID PROFILEon [id number]-HDL RATIO NORMSMedina HospitalComment on above:Result Comment: 3.3 - 4.4 LOW RISK 4.4 - 7.1 AVERAGE RISK 7.1 - 11.0 MODERATE RISK >11.0 HIGH RISKPerformed By: #### CBC #### [facility] [address] [place] [address] Dr. Brea CuaseyCholesterol [Mass/Vol]77 mg/dLNormal<=200[facility] Comment on above:Performed By: #### CBC #### [facility] [address] [place] [address] Dr. Brea CauseyCholesterol in HDL [Mass/Vol]40 mg/wGHvbsfi52-74Vgq [facility] CenterComment on above:Performed By: #### CBC #### [facility] [address] [place] [address] Dr. Brea CauseyCholesterol in LDL [Mass/Vol]21.0 mg/dLParkview Health Montpelier HospitalComselect specialty hospital on above:Performed By: #### CBC #### [facility] [address] [address] [address] Brea CauseyCholesterol.total/Cholesterol in HDL [Mass ratio]1.9 {ratio} NormalSt. Rita'S HospitalComment on above:Performed By: #### CBC #### [facility] [address] [place] [address] Dr. Brea Padilla NORMAL> or = 60 mg/dl - LOW CARDIOVASCULAR RISK <40 mg/dl - HIGH CARDIOVASCULAR RISKParkview Health Montpelier HospitalComment on above:Performed By: #### CBC #### [facility] [address] [place] [address] Dr. Brea CauseyLDL CALC NORMALSEE BELOWParkview Health Montpelier HospitalComment on above:Result Comment: <100 mg/dl OPTIMAL 100 - 129 mg/dl NEAR OR ABOVE OPTIMAL 130 - 159 mg/dl BORDERLINE HIGH 160 - 189 mg/dl HIGH >190 mg/dl VERY HIGH Performed By: #### CBC #### [facility] [address] [place] [address] Dr. Brea CauseyTriglyceride [Mass/Vol]80 mg/dLNormal<=150[facility] Comment on above:Performed By: #### CBC #### [facility] [address] [place] [address] Dr. Brea BlancoLDL CALC16.0 mg/dLNoUniversity Hospitals Lake West Medical CenterComment on above: Performed By: #### CBC #### [facility] [address] [place] [address] Dr. Brea CauseyMAGNESIUMon 90-48-6066Xzeaflvxk [Mass/Vol]1.5 mg/dLCritically low 1.8-2.4The [facility], Cancer CenterComment on above:Performed By: #### CBC #### [facility] [address] [place] [address] Dr. Brea CauseyPHOSPHORUSon 19-71-3179Zigjloezz [Mass/Vol]4.1 mg/dLNormal2.6-4.7 The [facility], Cancer CenterComment on above:Performed By: #### CBC #### [facility] [address] [place] [address] Dr. Brea Mobley 14(COMP METB)on 89-06-7886Zminkmv [Mass/Vol]4.0 g/dLNormal 3.4-5.0The [facility], Cancer CenterComment on above:Performed By: #### CBC #### [facility] [address] [place] [address] Dr. Brea CauseyAlbumin/Globulin [Mass ratio]1.3 {ratio}NormalThe [facility] Cancer CenterComment on above:Performed By: #### CBC #### [facility] [address] [place] [address] Dr. Brea BlumP [Catalytic activity/Vol]162 U/LCritically oaep61-052Dze [facility] CenterComment on above:Performed By: #### CBC #### [facility] [address] [place] [address] Dr. Brea BlumT [Catalytic activity/Vol]25 U/UJyqrao38-19Bmr [facility] CenterComment on above:Performed By: #### CBC #### [facility] [address] [place] [address] Dr. Brea Vieira gap [Moles/Vol]11.1 mmol/LNormalThe [facility] Comment on above:Performed By: #### CBC #### [facility] [address] [place] [address] Dr. Brea CauseyAST [Catalytic activity/Vol]16 U/TJsrktr28-03Nqz [facility] CenterComment on above:Performed By: #### CBC #### [facility] [address] [place] [address] Dr. Brea CauseyBilirubin [Mass/Vol]0.4 mg/dLNormal0.2-1.0The [facility] Comment on above:Performed By: #### CBC #### [facility] [address] [place] [address] Dr. Brea CauseyCalcium [Mass/Vol]8.2 mg/dLCritically low8.5-10.1The [facility] Cancer CenterComment on above:Performed By: #### CBC #### [facility] [address] [place], [place] [id number] Dr. Brea CauseyChloride [Moles/Vol]99 mmol/WEzlmzt06-200Als [facility] Comment on above:Performed By: #### CBC #### [facility] [address] [place] [address] Dr. Brea CauseyCO2 [Moles/Vol]28.1 mmol/QCaicnl21.0-32.0The [facility] Comment on above:Performed By: #### CBC #### [facility] [address] [place] [address] Dr. Brea CauseyCreatinine [Mass/Vol]1.13 mg/dLNormal0.70-1.30The [facility] Cancer CenterComment on above:Performed By: #### CBC #### [facility] [address] [place] [address] Dr. Guidry ChangEGFR-AF SERBIAN>60Normal>=60The [facility], Cancer CenterComment on above:Performed By: #### CBC #### [facility] [address] [place] [address] Dr. Brea NapolesGFR-NON AF SERBIAN>60Normal>=60The [facility], Cancer CenterComment on above:Performed By: #### CBC #### [facility] [address] [place] [address] Dr. Brea CauseyGlobulin (S) [Mass/Vol]3.1 g/dLNormalThe [facility] CenterComment on above:Performed By: #### CBC #### [facility] [address] [place] [address] Dr. Brea CauseyGlucose [Mass/Vol]177 mg/dLCritically kpoh07-962Ghn [facility] CenterComment on above:Performed By: #### CBC #### [facility] [address] [place] [address] Dr. Brea CauseyPotassium [Moles/Vol]5.2 mmol/LCritically high3.5-5.1The [facility] CenterComment on above:Performed By: #### CBC #### [facility] [address] [place] [address] Dr. Brea CauseyProtein [Mass/Vol]7.1 g/dLNormal6.4-8.2The [facility] Comment on above:Performed By: #### CBC #### [facility] [address] [place] [address] Dr. Brea CauseySodium [Moles/Vol]133 mmol/LCritically dce573-311Pqz [facility] CenterComment on above:Performed By: #### CBC #### [facility] [address] [place] [address] Dr. Brea CauseyUrea nitrogen [Mass/Vol]12.0 mg/dLNormal7.0-18.0The [facility] CenterComment on above:Performed By: #### CBC #### [facility] [address] [place] [address] Dr. Brea CauseyUrea nitrogen/Creatinine [Mass ratio]10.6 mg/mgNormalThe [facility] CenterComment on above:Performed By: #### CBC #### [facility] [address] [place] [address] Dr. Brea CauseyURIC ACID SERUMon [id number] [Mass/Vol]7.7 mg/dLCritically high3.5-7.2The [facility] CenterComment on above:Performed By: #### CBC #### [facility] [address] [place] [address] Dr. Brea CauseyFK506 (TACROLIMUS) WHOLE BLOODon [id number] (FK506), Blood11.4 ng/mLNormal2.0-20.0The [facility], [facility] CenterComment on above:Result Comment: Trough (immediately following transplant) 15.0 . Trough (steady state, 2 weeks or more after transplant): 3.0 - 8.0 . Performed by LC-MS/MS technology.Performed By: #### BKVIRUS #### [facility] [address] [place] [address] Dr. Brea CauseyBILIRUBIN CONJUGATED (DIRECT)on [id number], CONJUGATED0.1 mg/dLNormal0.0-0.2The [facility] CenterComment on above:Performed By: #### URIC, CMP, LIPID, DBIL, PHOS, MG #### [facility] [address] [place] [address] Dr. Brea CauseyBOX TEST SENT OUTon [id number] TO REF LAB01/04/2022NormalThAvita Health System Bucyrus HospitalComment on above:Performed By: #### URIC, CMP, LIPID, DBIL, PHOS, MG #### [facility] [address] [place] [address] Dr. Brea StanfordC AUTO DIFFon [id number] #0.0 103/ulNormal0.0-0.1The [facility] CenterComment on above:Performed By: #### URIC, CMP, LIPID, DBIL, PHOS, MG #### [facility] [address] [place] [address] Dr. Brea CauseyBasophils/100 WBC (Bld)0.5 %Normal0.2-2.0[facility] Comment on above:Performed By: #### URIC, CMP, LIPID, DBIL, PHOS, MG #### [facility] [address] [place] [address] Dr. Brea Domingo #0.3 103/ulNormal0.0-0.7The [facility] CenterComment on above: Performed By: #### URIC, CMP, LIPID, DBIL, PHOS, MG #### [facility] [address] [place] [address] Dr. Brea Napolesosinophils/100 WBC (Bld)3.9 %Normal0.9-7.0[facility] Comment on above:Performed By: #### URIC, CMP, LIPID, DBIL, PHOS, MG #### [facility] [address] [place] [address] Dr. Brea Napolesrythrocyte distribution width (RBC) [Ratio]13.1 %Tvswtr76.0-15.0 The [facility], [facility] CenterComment on above:Performed By: #### URIC, CMP, LIPID, DBIL, PHOS, MG #### [facility] [address] [place] [address] Dr. Brea Grahamatocrit (Bld) [Volume fraction]37.4 %Critically low42.0-54.0 The [facility], [facility] CenterComment on above:Performed By: #### URIC, CMP, LIPID, DBIL, PHOS, MG #### [facility] [address] [place] [address] Dr. Brea CauseyHemoglobin (Bld) [Mass/Vol]12.0 g/dLCritically low14.0-18.0The [facility], [facility] CenterComment on above:Performed By: #### URIC, CMP, LIPID, DBIL, PHOS, MG #### [facility] [address] [place] [address] Dr. Brea Monreal #0.07 10e3/ulCritically high0.00-0.03[facility] Comment on above:Performed By: #### URIC, CMP, LIPID, DBIL, PHOS, MG #### [facility] [address] [place] [address] Dr. Brea Monreal %1.1 %Critically high0.0-0.5ThAvita Health System Bucyrus HospitalComment on above:Performed By: #### URIC, CMP, LIPID, DBIL, PHOS, MG #### [facility] [address] [place] [address] Dr. Brea Hopkins #0.8 103/ulCritically low1.2-3.8ThAvita Health System [facility] Comment on above:Performed By: #### URIC, CMP, LIPID, DBIL, PHOS, MG #### [facility] [address] [place] [address] Dr. Brea Cheathamhocytes/100 WBC (Bld)12.2 %Critically low20.5-60.0The [facility] CenterComment on above:Performed By: #### URIC, CMP, LIPID, DBIL, PHOS, MG #### [facility] [address] [place] [address] Dr. Brea AscencioUAL DIFF REQNONormalThe [facility] CenterComment on above: Performed By: #### URIC, CMP, LIPID, DBIL, PHOS, MG #### [facility] [address] [place] [address] Dr. Brea Freire (RBC) [Entitic mass]29.1 fhSxwbbm06.9-34.0The [facility], [facility] CenterComment on above:Performed By: #### URIC, CMP, LIPID, DBIL, PHOS, MG #### [facility] [address] [place] [address] Dr. Brea Freire (RBC) [Mass/Vol]32.1 g/iCUmfokb20.9-35.2The [facility], [facility] CenterComment on above:Performed By: #### URIC, CMP, LIPID, DBIL, PHOS, MG #### [facility] [address] [place] [address] Dr. Brea Freire (RBC) [Entitic vol]90.6 zBKwctmh92.0-94.0The [facility], [facility] CenterComment on above:Performed By: #### URIC, CMP, LIPID, DBIL, PHOS, MG #### [facility] [address] [place] [address] Dr. Brea Molina #0.5 103/ulNormal0.3-0.8The [facility], [facility] CenterComment on above:Performed By: #### URIC, CMP, LIPID, DBIL, PHOS, MG #### [facility] [address] [place] [address] Dr. Brea Krishnanocytes/100 WBC (Bld)8.0 %Normal1.7-12.0The [facility] Comment on above:Performed By: #### URIC, CMP, LIPID, DBIL, PHOS, MG #### [facility] [address] [place] [address] Dr. Brea Lewis #5.0 103/ulNormal1.4-6.5The [facility], [facility] CenterComment on above:Performed By: #### URIC, CMP, LIPID, DBIL, PHOS, MG #### [facility] [address] [place] [address] Dr. Brea Doutrophils/100 WBC (Bld)74.3 %Vplmxl86.0-75.0The [facility] Hospitalment on above:Performed By: #### URIC, CMP, LIPID, DBIL, PHOS, MG #### [facility] [address] [place] [address] Dr. Brea Mahmood mean volume (Bld) [Entitic vol]9.5 fLNormal9.5-13.5The [facility] Hospitalment on above:Performed By: #### URIC, CMP, LIPID, DBIL, PHOS, MG #### [facility] [address] [place] [address] Dr. Brea CauseyPLT243 103/ipLdqvhn867-941Jed [facility] CenterComment on above: Performed By: #### URIC, CMP, LIPID, DBIL, PHOS, MG #### [facility] [address] [place] [address] Dr. Brea CauseyRBC4.13 106/ulCritically low4.70-6.10The [facility] Cancer CenterComselect specialty hospital on above:Performed By: #### URIC, CMP, LIPID, DBIL, PHOS, MG #### [facility] [address] [place] [address] Dr. Brea CauseyWBC6.7 103/ulNormal4.0-11.0The [facility] CenterComment on above: Performed By: #### URIC, CMP, LIPID, DBIL, PHOS, MG #### [facility] [address] [place] [address] Dr. Brea CauseyLIPID PROFILEon [id number]-HDL RATIO [facility] HospitalComment on above:Result Comment: 3.3 - 4.4 LOW RISK 4.4 - 7.1 AVERAGE RISK 7.1 - 11.0 MODERATE RISK >11.0 HIGH RISKPerformed By: #### URIC, CMP, LIPID, DBIL, PHOS, MG #### [facility] [address] [place] [address] Dr. Brea CauseyCholesterol [Mass/Vol]81 mg/dLNormal<=200The [facility] Comment on above:Performed By: #### URIC, CMP, LIPID, DBIL, PHOS, MG #### [facility] [address] [place] [address] Dr. Brea Reynosoesterol in HDL [Mass/Vol]43 mg/uNCphhbp81-52GazTriHealth on above:Performed By: #### URIC, CMP, LIPID, DBIL, PHOS, MG #### [facility] [address] [place] [address] Dr. Brea Reynosoesterol in LDL [Mass/Vol]26.0 mg/dLNoUniversity Hospitals Lake West Medical CenterComselect specialty hospital on above:Performed By: #### URIC, CMP, LIPID, DBIL, PHOS, MG #### [facility] [address] [place] [address] Dr. Brea Joseph.total/Cholesterol in HDL [Mass ratio]1.9 {ratio} NormalTriHealth on above:Performed By: #### URIC, CMP, LIPID, DBIL, PHOS, MG #### [facility] [address] [place] [address] Dr. Brea Padilla NORMAL> or = 60 mg/dl - LOW CARDIOVASCULAR RISK <40 mg/dl - HIGH CARDIOVASCULAR RISKParkview Health Montpelier HospitalComselect specialty hospital on above:Performed By: #### URIC, CMP, LIPID, DBIL, PHOS, MG #### [facility] [address] [place] [address] Dr. Brea CauseyLDL CALC NORMALSEE BELOWParkview Health Montpelier HospitalComselect specialty hospital on above:Result Comment: <100 mg/dl OPTIMAL 100 - 129 mg/dl NEAR OR ABOVE OPTIMAL 130 - 159 mg/dl BORDERLINE HIGH 160 - 189 mg/dl HIGH >190 mg/dl VERY HIGH Performed By: #### URIC, CMP, LIPID, DBIL, PHOS, MG #### [facility] [address] [place] [address] Dr. Brea CauseyTriglyceride [Mass/Vol]60 mg/dLNormal<=150[facility] Comment on above:Performed By: #### URIC, CMP, LIPID, DBIL, PHOS, MG #### [facility] [address] [place] [address] Dr. Brea CauseyVLDL CALC12.0 mg/dLNormalThe [facility] CenterComment on above: Performed By: #### URIC, CMP, LIPID, DBIL, PHOS, MG #### [facility] [address] [place] [address] Dr. Brea CauseyMAGNESIUMon 07-85-8484Awnlsbxvx [Mass/Vol]1.4 mg/dLCritically low 1.8-2.4The [facility] CenterComment on above:Performed By: #### URIC, CMP, LIPID, DBIL, PHOS, MG #### [facility] [address] [place] [address] Dr. Brea CauseyPHOSPHORUSon [id number] [Mass/Vol]4.4 mg/dLNormal2.6-4.7 The [facility] CenterComment on above:Performed By: #### URIC, CMP, LIPID, DBIL, PHOS, MG #### [facility] [address] [place] [address] Dr. Brea CauseyPROF 14(COMP METB)on [id number] [Mass/Vol]3.9 g/dLNormal 3.4-5.0The [facility] Hospitalment on above:Performed By: #### URIC, CMP, LIPID, DBIL, PHOS, MG #### [facility] [address] [place] [address] Dr. Brea CauseyAlbumin/Globulin [Mass ratio]1.2 {ratio}NormalThe [facility] on above:Performed By: #### URIC, CMP, LIPID, DBIL, PHOS, MG #### [facility] [address] [place] [address] Dr. Brea Guzman [Catalytic activity/Vol]155 U/LCritically iydy71-643Mec [facility] Hospitalment on above:Performed By: #### URIC, CMP, LIPID, DBIL, PHOS, MG #### [facility] [address] [place] [address] Dr. Brea Diaz [Catalytic activity/Vol]27 U/FSoedwc09-14Hny [facility] CenterComment on above:Performed By: #### URIC, CMP, LIPID, DBIL, PHOS, MG #### [facility] [address] [place] [address] Dr. Brea Vieira gap [Moles/Vol]14.6 mmol/LNormalSt. [facility]S Hospital Comment on above:Performed By: #### URIC, CMP, LIPID, DBIL, PHOS, MG #### [facility] [address] [place] [address] Dr. Brea Landers [Catalytic activity/Vol]17 U/SShszlg33-08Taz [facility] CenterComment on above:Performed By: #### URIC, CMP, LIPID, DBIL, PHOS, MG #### [facility] [address] [place] [address] Dr. Brea CauseyBilirubin [Mass/Vol]0.3 mg/dLNormal0.2-1.0[facility] Comment on above:Performed By: #### URIC, CMP, LIPID, DBIL, PHOS, MG #### [facility] [address] [place] [address] Dr. Brea CauseyCalcium [Mass/Vol]8.1 mg/dLCritically low8.5-10.1St. [facility]'S HospitalComment on above:Performed By: #### URIC, CMP, LIPID, DBIL, PHOS, MG #### [facility] [address] [place] [address] Dr. Brea CauseyChloride [Moles/Vol]99 mmol/RRrxmmj52-367CeiSt. Rita'S Hospital Comment on above:Performed By: #### URIC, CMP, LIPID, DBIL, PHOS, MG #### [facility] [address] [place] [address] Dr. Brea CauseyCO2 [Moles/Vol]25.0 mmol/IJubbee67.0-32.0[facility] Comment on above:Performed By: #### URIC, CMP, LIPID, DBIL, PHOS, MG #### [facility] [address] [place] [address] Dr. Brea CauseyCreatinine [Mass/Vol]1.05 mg/dLNormal0.70-1.30The [facility] Hospitalment on above:Performed By: #### URIC, CMP, LIPID, DBIL, PHOS, MG #### [facility] [address] [place] [address] Dr. Brea NapolesGFR-AF SERBIAN>60Normal>=60The [facility] CenterComment on above:Performed By: #### URIC, CMP, LIPID, DBIL, PHOS, MG #### [facility] [address] [place] [address] Dr. Brea NapolesGFR-NON AF SERBIAN>60Normal>=60The [facility] CenterComment on above:Performed By: #### URIC, CMP, LIPID, DBIL, PHOS, MG #### [facility] [address] [place] [address] Dr. Brea CauseyGlobulin (S) [Mass/Vol]3.2 g/dLNormalThe [facility] CenterComment on above:Performed By: #### URIC, CMP, LIPID, DBIL, PHOS, MG #### [facility] [address] [place] [address] Dr. Brea CauseyGlucose [Mass/Vol]177 mg/dLCritically eudl60-592Zed [facility] Hospitalment on above:Performed By: #### URIC, CMP, LIPID, DBIL, PHOS, MG #### [facility] [address] [place] [address] Dr. Brea CauseyPotassium [Moles/Vol]4.6 mmol/LNormal3.5-5.1The [facility] Comment on above:Performed By: #### URIC, CMP, LIPID, DBIL, PHOS, MG #### [facility] [address] [place] [address] Dr. Brea CauseyProtein [Mass/Vol]7.1 g/dLNormal6.4-8.2The [facility] Comment on above:Performed By: #### URIC, CMP, LIPID, DBIL, PHOS, MG #### [facility] [address] [place] [address] Dr. Brea CauseySodium [Moles/Vol]134 mmol/LCritically mbr025-520Bvq [facility] on above:Performed By: #### URIC, CMP, LIPID, DBIL, PHOS, MG #### [facility] [address] [place] [address] Dr. Brea CauseyUrea nitrogen [Mass/Vol]14.0 mg/dLNormal7.0-18.0The [facility] Hospitalment on above:Performed By: #### URIC, CMP, LIPID, DBIL, PHOS, MG #### [facility] [address] [place] [address] Dr. Brea Mercado nitrogen/Creatinine [Mass ratio]13.3 mg/mgNoUniversity Hospitals Lake West Medical CenterComselect specialty hospital on above:Performed By: #### URIC, CMP, LIPID, DBIL, PHOS, MG #### [facility] [address] [place] [address] Dr. Brea CauseyURIC ACID SERUMon 73-48-5907Gxolc [Mass/Vol]7.6 mg/dLCritically high3.5-7.2The [facility] on above:Performed By: #### URIC, CMP, LIPID, DBIL, PHOS, MG #### [facility] [address] [place] [address] Dr. Brea CauseyBK VIRUS PCR QUANTon [id number] DNA QUANT PCR PLASMANegative NormalNegativeThe [facility] CenterComment on above:Result Comment: No BK DNA detected. . The linear range of the assay is 22 - 100,000,000 IU/mL.Performed By: #### BKVIRUS #### [facility] [address] [place] [address] Dr. Brea CauseyLog10 BKV DNA PlasmaNoUniversity Hospitals Lake West Medical CenterComment on above: Performed By: #### BKVIRUS #### [facility] [address] [place] [address] Dr. Brea CauseyFK506 (TACROLIMUS) WHOLE BLOODon 39-66-1385Ucjfchmoyi (FK506), Blood5.6 ng/mLNormal2.0-20.0The [facility] Hospitalment on above:Result Comment: Trough (immediately following transplant) 15.0 . Trough (steady state, 2 weeks or more after transplant): 3.0 - 8.0 . Performed by LC-MS/MS technology.Performed By: #### URIC, CMP, LIPID, DBIL, PHOS, MG #### [facility] [address] [place] [address] Dr. Brea CauseyTESTOSTERONE, FREE,DIRECT, TOTALon 85-02-6903Jefp Testosterone(Direct)7.5 pg/mLNormal6.6-18.1The [facility] CenterComment on above:Result Comment: Performed at: BNPerformed By: #### URIC, CMP, LIPID, DBIL, PHOS, MG #### [facility] [address] [place] [address] Dr. Brea CauseyTestosterone [Mass/Vol]467 ng/wAMhtkxu941-452Rrc [facility] CenterComment on above:Result Comment: Adult male reference interval is based on a population of healthy nonobese males (BMI <30) between 19 and 39 years old. Steven, et.al. JCEM 2017,102;3569-4630. PMID: [id number]. Performed at: CBPerformed By: #### URIC, CMP, LIPID, DBIL, PHOS, MG #### [facility] [address] [place] [address] Dr. Brea CauseyBILIRUBIN CONJUGATED (DIRECT)on [id number], CONJUGATED0.2 mg/dLNormal0.0-0.2The [facility] CenterComment on above:Performed By: #### BKVIRUS #### [facility] [address] [place] [address] Dr. Brea CauseyCBC AUTO DIFFon [id number] #0.0 103/ulNormal0.0-0.1The [facility] Cancer CenterComment on above:Performed By: #### URIC, CMP, LIPID, DBIL, PHOS, MG #### [facility] [address] [place] [address] Dr. Brea CauseyBasophils/100 WBC (Bld)0.6 %Normal0.2-2.0The [facility] Comment on above:Performed By: #### URIC, CMP, LIPID, DBIL, PHOS, MG #### [facility] [address] [place] [address] Dr. Brea Domingo #0.2 103/ulNormal0.0-0.7The [facility] CenterComment on above: Performed By: #### URIC, CMP, LIPID, DBIL, PHOS, MG #### [facility] [address] [place] [address] Dr. Brea Napolesosinophils/100 WBC (Bld)2.7 %Normal0.9-7.0The [facility] Comment on above:Performed By: #### URIC, CMP, LIPID, DBIL, PHOS, MG #### [facility] [address] [place] [address] Dr. Brea Napolesrythrocyte distribution width (RBC) [Ratio]13.0 %Kzcmgs82.0-15.0 The [facility], [facility] CenterComment on above:Performed By: #### URIC, CMP, LIPID, DBIL, PHOS, MG #### [facility] [address] [place] [address] Dr. Brea CauseyHematocrit (Bld) [Volume fraction]37.6 %Critically low42.0-54.0 The [facility], Cancer CenterComment on above:Performed By: #### URIC, CMP, LIPID, DBIL, PHOS, MG #### [facility] [address] [place] [address] Dr. Brea CauseyHemoglobin (Bld) [Mass/Vol]12.4 g/dLCritically low14.0-18.0The [facility] CenterComment on above:Performed By: #### URIC, CMP, LIPID, DBIL, PHOS, MG #### [facility] [address] [place] [address] Dr. Brea CauseyIG #0.06 10e3/ulCritically high0.00-0.03The [facility] Comment on above:Performed By: #### URIC, CMP, LIPID, DBIL, PHOS, MG #### [facility] [address] [place] [address] Dr. Brea Monreal %0.9 %Critically high0.0-0.5The [facility] CenterComment on above:Performed By: #### URIC, CMP, LIPID, DBIL, PHOS, MG #### [facility] [address] [place] [address] Dr. Brea Hopkins #1.0 103/ulCritically low1.2-3.8ThAvita Health [facility] Comment on above:Performed By: #### URIC, CMP, LIPID, DBIL, PHOS, MG #### [facility] [address] [place] [address] Dr. Brea Cheathamhocytes/100 WBC (Bld)14.6 %Critically low20.5-60.0The [facility] CenterComment on above:Performed By: #### URIC, CMP, LIPID, DBIL, PHOS, MG #### [facility] [address] [place] [address] Dr. Brea AscencioUAL DIFF REQNONormalThe [facility] CenterComment on above: Performed By: #### URIC, CMP, LIPID, DBIL, PHOS, MG #### [facility] [address] [place] [address] Dr. Brea Freire (RBC) [Entitic mass]29.4 diDpuxpz53.9-34.0The [facility] CenterComment on above:Performed By: #### URIC, CMP, LIPID, DBIL, PHOS, MG #### [facility] [address] [place] [address] Dr. Brea Freire (RBC) [Mass/Vol]33.0 g/lNHtihcz84.9-35.2The [facility] CenterComment on above:Performed By: #### URIC, CMP, LIPID, DBIL, PHOS, MG #### [facility] [address] [place] [address] Dr. Brea FreireV (RBC) [Entitic vol]89.1 aZAjkzef02.0-94.0The [facility] Md, Cancer CenterComment on above:Performed By: #### URIC, CMP, LIPID, DBIL, PHOS, MG #### [facility] [address] [place] [address] Dr. Brea Molina #0.7 103/ulNormal0.3-0.8The [facility], Cancer CenterComment on above:Performed By: #### URIC, CMP, LIPID, DBIL, PHOS, MG #### [facility] [address] [place] [address] Dr. Brea Krishnanocytes/100 WBC (Bld)10.0 %Normal1.7-12.0The [facility] Comment on above:Performed By: #### URIC, CMP, LIPID, DBIL, PHOS, MG #### [facility] [address] [place] [address] Dr. Brea Lewis #4.8 103/ulNormal1.4-6.5The [facility], Cancer CenterComment on above:Performed By: #### URIC, CMP, LIPID, DBIL, PHOS, MG #### [facility] [address] [place] [address] Dr. Brea Doutrophils/100 WBC (Bld)71.2 %Jkfpvn94.0-75.0The [facility], Cancer CenterComment on above:Performed By: #### URIC, CMP, LIPID, DBIL, PHOS, MG #### [facility] [address] [place] [address] Dr. Brea Mahmood mean volume (Bld) [Entitic vol]9.0 fLCritically low 9.5-13.5The [facility] Hospitalment on above:Performed By: #### URIC, CMP, LIPID, DBIL, PHOS, MG #### [facility] [address] [place] [address] Dr. Brea CauseyPLT280 103/ddHfxvbg475-960Pyu [facility] Hospitalment on above: Performed By: #### URIC, CMP, LIPID, DBIL, PHOS, MG #### [facility] [address] [address] [address] Brea CauseyRBC4.22 106/ulCritically low4.70-6.10The [facility], Cancer CenterComselect specialty hospital on above:Performed By: #### URIC, CMP, LIPID, DBIL, PHOS, MG #### [facility] [address] [place] [address] Dr. Brea CauseyWBC6.7 103/ulNormal4.0-11.0The [facility] CenterComselect specialty hospital on above: Performed By: #### URIC, CMP, LIPID, DBIL, PHOS, MG #### [facility] [address] [place] [address] Dr. Brea CauseyGLYCOHEMOGLOBIN A1Con [id number] RECOMMENDATIONSEE BELOWUpper Valley Medical CenterComselect specialty hospital on above:Result Comment: ADA RECOMMENDED LIMIT 4.0 - 6.0 ADA THERAPEUTIC TARGET < 7.0 ACTION SUGGESTED > 7.0Performed By: #### BKVIRUS #### [facility] [address] [place] [address] Dr. Brea CauseyGlucose [Mass/Vol]171 mg/dLNoUniversity Hospitals Lake West Medical CenterComselect specialty hospital on above:Performed By: #### BKVIRUS #### [facility] [address] [place] [address] Dr. Brea CauseyHbA1c (Bld) [Mass fraction]7.6 %Critically high4.5-6.2The [facility] on above:Performed By: #### BKVIRUS #### [facility] [address] [place] [address] Dr. Brea CauseyLIPID PROFILEon [id number]-HDL RATIO NORMSEE [facility] HospitalComselect specialty hospital on above:Result Comment: 3.3 - 4.4 LOW RISK 4.4 - 7.1 AVERAGE RISK 7.1 - 11.0 MODERATE RISK >11.0 HIGH RISKPerformed By: #### CBC #### [facility] [address] [place] [address] Dr. Brea CauseyCholesterol [Mass/Vol]75 mg/dLNormal<=200[facility] Comment on above:Performed By: #### CBC #### [facility] [address] [address] [address] Brea CauseyCholesterol in HDL [Mass/Vol]41 mg/lERgvuus99-57NmjSt. Rita'S HospitalComment on above:Performed By: #### CBC #### [facility] [address] [address] [address] Brea CauseyCholesterol in LDL [Mass/Vol]18.6 mg/dLParkview Health Montpelier HospitalComment on above:Performed By: #### CBC #### [facility] [address] [address] [address] Brea Joseph.total/Cholesterol in HDL [Mass ratio]1.8 {ratio} NormalSt. Rita'S HospitalComment on above:Performed By: #### CBC #### [facility] [address] [address] [address] Brea Padilla NORMAL> or = 60 mg/dl - LOW CARDIOVASCULAR RISK <40 mg/dl - HIGH CARDIOVASCULAR RISKParkview Health Montpelier HospitalComment on above:Performed By: #### CBC #### [facility] [address] [place] [address] Dr. Brea Culp CALC NORMALSEE BELOWParkview Health Montpelier HospitalComment on above:Result Comment: <100 mg/dl OPTIMAL 100 - 129 mg/dl NEAR OR ABOVE OPTIMAL 130 - 159 mg/dl BORDERLINE HIGH 160 - 189 mg/dl HIGH >190 mg/dl VERY HIGH Performed By: #### CBC #### [facility] [address] [address] [address] Brea CauseyTriglyceride [Mass/Vol]77 mg/dLNormal<=150The [facility] Comment on above:Performed By: #### CBC #### [facility] [address] [place] [address] Dr. Brea BlancoLDL CALC15.4 mg/dLParkview Health Montpelier HospitalComment on above: Performed By: #### CBC #### [facility] Laboratory [address] [place] [address] Dr. Brea CauseyMAGNESIUMon [id number] [Mass/Vol]1.4 mg/dLCritically low 1.8-2.4The [facility], Cancer CenterComment on above:Performed By: #### BKVIRUS #### [facility] [address] [place] [address] Dr. Brea CauseyPHOSPHORUSon 12-82-1246Jitmwnorv [Mass/Vol]4.1 mg/dLNormal2.6-4.7 The [facility], Cancer CenterComment on above:Performed By: #### CBC #### [facility] [address] [place] [address] Dr. Brea CauseyPROF 14(COMP METB)on 26-71-7896Htxitqe [Mass/Vol]4.2 g/dLNormal 3.4-5.0The [facility], Cancer CenterComment on above:Performed By: #### CBC #### [facility] [address] [place] [address] Dr. Brea CauseyAlbumin/Globulin [Mass ratio]1.3 {ratio}NormalThe [facility], Cancer CenterComment on above:Performed By: #### CBC #### [facility] Laboratory [address] [place] [address] Dr. Brea Guzman [Catalytic activity/Vol]148 U/LCritically bjax92-312Jct [facility] CenterComment on above:Performed By: #### CBC #### [facility] Laboratory [address] [place] [address] Dr. Brea Diaz [Catalytic activity/Vol]36 U/STcwvkw28-84Brj [facility], [facility] CenterComment on above:Performed By: #### CBC #### [facility] Laboratory [address] [place] [address] Dr. Brea Vieira gap [Moles/Vol]14.7 mmol/LNormalThe [facility] on above:Performed By: #### CBC #### [facility] Laboratory [address] [place] [address] Dr. Brea Landers [Catalytic activity/Vol]21 U/BRvkcjq45-98Ppe [facility] Hospitalment on above:Performed By: #### CBC #### [facility] [address] [address] [address] Brea CauseyBilirubin [Mass/Vol]0.4 mg/dLNormal0.2-1.0[facility] Comment on above:Performed By: #### CBC #### [facility] [address] [address] [address] Brea CauseyCalcium [Mass/Vol]8.3 mg/dLCritically low8.5-10.1The [facility] on above:Performed By: #### CBC #### [facility] [address] [address] [address] Brea CauseyChloride [Moles/Vol]98 mmol/PAgkhzl59-503XtwSt. [facility]'S Hospital Comment on above:Performed By: #### CBC #### [facility] [address] [address] [address] Brea CauseyCO2 [Moles/Vol]27.2 mmol/KPywgec89.0-32.0[facility] Comment on above:Performed By: #### CBC #### [facility] [address] [address] [address] Brea CauseyCreatinine [Mass/Vol]1.10 mg/dLNormal0.70-1.30The [facility] on above:Performed By: #### CBC #### [facility] [address] [address] [address] Brea NapolesGFR-AF SERBIAN>60Normal>=60The [facility], Cancer CenterComment on above:Performed By: #### CBC #### [facility] [address] [address] [address] Brea NapolesGFR-NON AF SERBIAN>60Normal>=60The [facility] on above:Performed By: #### CBC #### [facility] [address] [address] [address] Brea CauseyGlobulin (S) [Mass/Vol]3.2 g/dLNormalThe [facility], [facility] CenterComment on above:Performed By: #### CBC #### [facility] [address] [address] [address] Brea CauseyGlucose [Mass/Vol]173 mg/dLCritically tjhe73-631Zkk [facility] CenterComment on above:Performed By: #### CBC #### [facility] [address] [address] [address] Brea CauseyPotassium [Moles/Vol]4.9 mmol/LNormal3.5-5.1The [facility] Comment on above:Performed By: #### CBC #### [facility] [address] [address] [address] Brea CauseyProtein [Mass/Vol]7.4 g/dLNormal6.4-8.2The [facility] Comment on above:Performed By: #### CBC #### [facility] [address] [address] [address] Brea CauseySodium [Moles/Vol]135 mmol/LCritically ghz012-943Myy [facility] CenterComment on above:Performed By: #### CBC #### [facility] [address] [address] [address] Brea CauseyUrea nitrogen [Mass/Vol]14.0 mg/dLNormal7.0-18.0The [facility], [facility] CenterComment on above:Performed By: #### CBC #### [facility] Laboratory [address] [address] [address] Brea CauseyUrea nitrogen/Creatinine [Mass ratio]12.7 mg/mgNormalThe [facility], [facility] CenterComment on above:Performed By: #### CBC #### [facility] Laboratory [address] [address] [address] Brea CauseyURIC ACID SERUMon 48-07-5595Kwesn [Mass/Vol]7.8 mg/dLCritically high3.5-7.2The [facility], [facility] CenterComment on above:Performed By: #### CBC #### [facility] [address] [address] [address] Brea SanchezPon 05-69-3813Xbyojkzxtsu peptide B (Bld) [Mass/Vol]350.0 pg/mL Normal<=900.0The [facility], Cancer CenterComment on above:Performed By: #### CBC #### [facility] Laboratory [address] [place] [address] Dr. Brea Reis AUTO DIFFon 78-13-2557JLLJ #0.0 103/ulNormal0.0-0.1The [facility], Cancer CenterComment on above:Performed By: #### CBC #### [facility] Laboratory [address] [place] [address] Dr. Brea CauseyBasophils/100 WBC (Bld)0.1 %Critically low0.2-2.0The [facility], Cancer CenterComment on above:Performed By: #### CBC #### [facility] Laboratory [address] [place] [address] Dr. Brea Domingo #0.2 103/ulNormal0.0-0.7The [facility], [facility] CenterComment on above: Performed By: #### CBC #### [facility] Laboratory [address] [place] [address] Dr. Brea Napolesosinophils/100 WBC (Bld)1.4 %Normal0.9-7.0The [facility] Comment on above:Performed By: #### CBC #### [facility] Laboratory [address] [place] [address] Dr. Brea Napolesrythrocyte distribution width (RBC) [Ratio]13.1 %Tsbhes47.0-15.0 The [facility], Cancer CenterComment on above:Performed By: #### CBC #### [facility] Laboratory [address] [place] [address] Dr. Brea CauseyHematocrit (Bld) [Volume fraction]39.4 %Critically low42.0-54.0 The [facility], Cancer CenterComment on above:Performed By: #### CBC #### [facility] [address] [place] [address] Dr. Brea CauseyHemoglobin (Bld) [Mass/Vol]13.2 g/dLCritically low14.0-18.0The [facility], Cancer CenterComment on above:Performed By: #### CBC #### [facility] [address] [address] [address] Brea Monreal #0.11 10e3/ulCritically high0.00-0.03[facility] Comment on above:Performed By: #### CBC #### [facility] Laboratory [address] [address] [address] Brea Monreal %0.6 %Critically high0.0-0.5The [facility], Cancer CenterComment on above:Performed By: #### CBC #### [facility] Laboratory [address] [place] [address] Dr. Brea Hopkins #1.1 103/ulCritically low1.2-3.8The [facility] Comment on above:Performed By: #### CBC #### [facility] Laboratory [address] [place] [address] Dr. Brea Cheathamhocytes/100 WBC (Bld)6.7 %Critically low20.5-60.0The [facility], Cancer CenterComment on above:Performed By: #### CBC #### [facility] Laboratory [address] [place] [address] Dr. Brea AscencioUAL DIFF REQNONormalThe [facility], [facility] CenterComment on above: Performed By: #### CBC #### [facility] Laboratory [address] [place] [address] Dr. Brea Freire (RBC) [Entitic mass]29.5 qjXkxbfa46.9-34.0The [facility], Cancer CenterComment on above:Performed By: #### CBC #### [facility] Laboratory [address] [place] [address] Dr. Brea Freire (RBC) [Mass/Vol]33.5 g/yGWysnbh04.9-35.2The [facility], Cancer CenterComment on above:Performed By: #### CBC #### [facility] Laboratory [address] [place] [address] Dr. Brea Freire (RBC) [Entitic vol]88.1 yENeztcq92.0-94.0The [facility], Cancer CenterComment on above:Performed By: #### CBC #### [facility] Laboratory [address] [address] [address] Brea Molina #1.5 103/ulCritically high0.3-0.8The [facility] Comment on above:Performed By: #### CBC #### [facility] [address] [address] [address] Brea Krishnanocytes/100 WBC (Bld)8.6 %Normal1.7-12.0[facility] Comment on above:Performed By: #### CBC #### [facility] [address] [place] [address] Dr. Brea Lewis #14.0 103/ulCritically high1.4-6.5ThAvita Health System [facility] Comment on above:Performed By: #### CBC #### [facility] Laboratory [address] [place] [address] Dr. Brea Doutrophils/100 WBC (Bld)82.6 %Critically high43.0-75.0The [facility], Cancer CenterComment on above:Performed By: #### CBC #### [facility] Laboratory [address] [place] [address] Dr. Brea Galvanlet mean volume (Bld) [Entitic vol]9.5 fLNormal9.5-13.5ThAvita Health System Bucyrus HospitalComment on above:Performed By: #### CBC #### [facility] Laboratory [address] [place] [address] Dr. Brea CauseyPLT303 103/jcTeptmq989-514Yxe [facility] CenterComment on above: Performed By: #### CBC #### [facility] Laboratory [address] [place] [address] Dr. Brea CauseyRBC4.47 106/ulCritically low4.70-6.10The [facility], Cancer CenterComment on above:Performed By: #### CBC #### [facility] Laboratory [address] [place] [address] Dr. Brea CauseyWBC17.0 103/ulCritically high4.0-11.0The [facility], [facility] CenterComment on above:Performed By: #### CBC #### [facility] [address] [place] [address] Dr. Brea Chavez-19 PCR ([facility])on 25-11-3233EHWA-CoV-2 (COVID-19) RNA ISI+probe Ql (Unsp spec)Not detectedNormalNOT DETECTEDSt. [facility]'S [facility] Comment on above:Result Comment: When diagnostic testing is negative, the [...] for this test is supported by the [place] of Health and Human Service's declaration that circumstances exist to justify the emergency use of in vitro diagnostics for the detection and/or diagnosis of the virus that causes COVID-19. This EUA will remain in effect for the duration of the COVID-19 declaration justifying emergency of IVDs, unless it is terminated or revoked by the FDA (after which the test may no longer be used).Performed By: #### URIC, CMP, LIPID, DBIL, PHOS, MG #### [facility] [address] [place] [address] Dr. Brea Gleason URINE PROFILEon 48-41-2817Yzgzodljz Ql (U)NegativeNormal NEGATIVESt. Rita'S HospitalComment on above:Performed By: #### URIC, CMP, LIPID, DBIL, PHOS, MG #### [facility] [address] [place] [address] Dr. Brea Monahan (U)CLEARNormalCLEARSt. Rita'S HospitalComment on above: Performed By: #### URIC, CMP, LIPID, DBIL, PHOS, MG #### [facility] [address] [place] [address] Dr. Brea Austin (U)YELLOWNormalYELLOWSt. Rita'S HospitalComment on above: Performed By: #### URIC, CMP, LIPID, DBIL, PHOS, MG #### [facility] [address] [place] [address] Dr. Brea Villagran micrscopic examination will be performed if indicated. NormalThe [facility], Cancer CenterComment on above:Performed By: #### URIC, CMP, LIPID, DBIL, PHOS, MG #### [facility] [address] [place] [address] Dr. Brea CauseyGlucose Ql (U)NegativeNormalNEGATIVESt. Rita'S HospitalComment on above:Performed By: #### URIC, CMP, LIPID, DBIL, PHOS, MG #### [facility] [address] [place] [address] Dr. Brea CauseyHemoglobin Ql (U)NegativeNormalNEGATIVESt. [facility] Hospital on above:Performed By: #### URIC, CMP, LIPID, DBIL, PHOS, MG #### [facility] [address] [place] [address] Dr. Brea CauseyKetones Ql (U)NegativeNormalNEGATIVECleveland Clinicment on above:Performed By: #### URIC, CMP, LIPID, DBIL, PHOS, MG #### [facility] [address] [place] [address] Dr. Brea CauseyLEUKOCYTESNegativeNormalNEGATIVECleveland Clinicment on above:Performed By: #### URIC, CMP, LIPID, DBIL, PHOS, MG #### [facility] [address] [place] [address] Dr. Brea Zambranotrite Ql (U)NegativeNormalNEGATIVECleveland Clinicment on above:Performed By: #### URIC, CMP, LIPID, DBIL, PHOS, MG #### [facility] [address] [place] [address] Dr. Brea CauseypH (U)6.0 [pH]Normal5-9[facility] on above: Performed By: #### URIC, CMP, LIPID, DBIL, PHOS, MG #### [facility] [address] [place] [address] DrMaico Serna GRAVITY<=1.180Xavwpedo2.005-<=1.025The [facility] Comment on above:Performed By: #### URIC, CMP, LIPID, DBIL, PHOS, MG #### [facility] Laboratory [address] [place] [address] Dr. Brea Silva PROTEINNegativeNormalNEGATIVE/ TRACEThe [facility] Comment on above:Performed By: #### URIC, CMP, LIPID, DBIL, PHOS, MG #### [facility] [address] [place] [address] Dr. Brea Morejon MICRO INDNOT INDICATEDNormalThe [facility], Cancer CenterComment on above:Performed By: #### URIC, CMP, LIPID, DBIL, PHOS, MG #### [facility] [address] [place] [address] Dr. Brea Deebilino Qn (U)0.2 {Sabine'U}/dLNormal0.2 - 1.0The [facility], Cancer CenterComment on above:Performed By: #### URIC, CMP, LIPID, DBIL, PHOS, MG #### [facility] [address] [place] [address] Dr. Brea Dumont PANEL (PCR)on 34-73-7212Vojkhhvdli F 40/41Not detectedNormal NOT DETECTEDThe [facility], Cancer CenterComment on above:Performed By: #### URIC, CMP, LIPID, DBIL, PHOS, MG #### [facility] Laboratory [address] [place] [address] Dr. Brea CauseyAstrovirusNot detectedNormalNOT DETECTEDThe [facility] Comment on above:Performed By: #### URIC, CMP, LIPID, DBIL, PHOS, MG #### [facility] Laboratory [address] [place] [address] Dr. rBea Cruz. Diff toxin A/BNot detectedNormalNOT DETECTEDThe [facility] CenterComment on above:Performed By: #### URIC, CMP, LIPID, DBIL, PHOS, MG #### [facility] [address] [place] [address] Dr. Brea DcpylobacterNot detectedNormalNOT DETECTEDThe [facility] Comment on above:Performed By: #### URIC, CMP, LIPID, DBIL, PHOS, MG #### [facility] Laboratory [address] [place] [address] Dr. Brea MedleyyptosporidiumNot detectedNormalNOT DETECTEDThe [facility] Cancer CenterComment on above:Performed By: #### URIC, CMP, LIPID, DBIL, PHOS, MG #### [facility] Laboratory [address] [address] [address] Brea Cancinoos. CayetanensisNot detectedNormalNOT DETECTEDThe [facility] Cancer CenterComselect specialty hospital on above:Performed By: #### URIC, CMP, LIPID, DBIL, PHOS, MG #### [facility] [address] [place] [address] Dr. Brea Napoles. Coli M208Nhv ApplicableNormalNot ApplicableThe [facility] Cancer CenterComselect specialty hospital on above:Performed By: #### URIC, CMP, LIPID, DBIL, PHOS, MG #### [facility] Laboratory [address] [place] [address] Dr. Brea Lopez histolyticaNot detectedNormalNOT DETECTEDThe [facility] Comment on above:Performed By: #### URIC, CMP, LIPID, DBIL, PHOS, MG #### [facility] Laboratory [address] [place] [address] Dr. Brea NapolesAECNot detectedNormalNOT DETECTEDThe [facility] CenterComselect specialty hospital on above:Performed By: #### URIC, CMP, LIPID, DBIL, PHOS, MG #### [facility] [address] [place] [address] Dr. Brea NapolesIECNot detectedNormalNOT DETECTEDThe [facility] CenterComselect specialty hospital on above:Performed By: #### URIC, CMP, LIPID, DBIL, PHOS, MG #### [facility] [address] [place] [address] Dr. Brea NapolesPECBrittney detectedNormalNOT DETECTEDThe [facility] Cancer CenterComment on above:Performed By: #### URIC, CMP, LIPID, DBIL, PHOS, MG #### [facility] [facility] [address] [address] [address] Brea Lainez detectedNormalNOT DETECTEDSt. Rita'S HospitalComment on above:Performed By: #### URIC, CMP, LIPID, DBIL, PHOS, MG #### [facility] [address] [address] [address] Brea Barry detectedNormalNOT DETECTEDThe [facility] Comment on above:Performed By: #### URIC, CMP, LIPID, DBIL, PHOS, MG #### [facility] [address] [address] [address] Brea NICOLEKettering Health Main CampusComment on above:Performed By: #### URIC, CMP, LIPID, DBIL, PHOS, MG #### [facility] [address] [place] [address] Dr. Brea Sousa [facility] HEADERGI PANEL [facility] [place] Comment on above:Performed By: #### URIC, CMP, LIPID, DBIL, PHOS, MG #### [facility] [address] [address] [address] Brea Barr ECOLIGI PANEL DIARRHEAGENIC E.COLI / SHIGELLAParkview Health Montpelier HospitalComment on above:Performed By: #### URIC, CMP, LIPID, DBIL, PHOS, MG #### [facility] [address] [address] [address] Brea Barr INFOSEE [facility] Children's HospitalComment on above: Result Comment: EAEC- Enteroaggregative E. Coli EPEC- Enteropathogenic E. Coli ETEC- Enterotoxigenic E. Coli lt/st STEC- Shigella-like toxin-producing E. Coli stx1/stx2 EIEC- Shigella/Enteroinvasive E. ColiPerformed By: #### URIC, CMP, LIPID, DBIL, PHOS, MG #### [facility] [address] [place] [address] Dr. Brea Barr PARASITESGI PANEL [facility] Comment on above:Performed By: #### URIC, CMP, LIPID, DBIL, PHOS, MG #### [facility] [address] [address] [address] Brea AlvarengaLHD VIRUSGI PANEL VIRUSESNoalThe [facility] CenterComment on above:Performed By: #### URIC, CMP, LIPID, DBIL, PHOS, MG #### [facility] [address] [address] [address] Brea Metzgerrovirus GI/GIINot detectedNormalNOT DETECTEDThe [facility] CenterComment on above:Performed By: #### URIC, CMP, LIPID, DBIL, PHOS, MG #### [facility] [address] [place] [address] Dr. Brea Perla ShigelloidesNot detectedNormalNOT DETECTEDThe [facility] CenterComment on above:Performed By: #### URIC, CMP, LIPID, DBIL, PHOS, MG #### [facility] [address] [place] [address] Dr. Brea CauseyRotavirus ANot detectedNormalNOT DETECTEDSt. [facility] Comment on above:Performed By: #### URIC, CMP, LIPID, DBIL, PHOS, MG #### [facility] [address] [place] [address] Dr. Brea BarksdalemonellaNot detectedNormalNOT DETECTEDSt. [facility]'S [facility] Comment on above:Performed By: #### URIC, CMP, LIPID, DBIL, PHOS, MG #### [facility] [address] [place] [address] Dr. Brea CauseySapovirusNot detectedNormalNOT DETECTEDSt. [facility] Comment on above:Performed By: #### URIC, CMP, LIPID, DBIL, PHOS, MG #### [facility] [address] [place] [address] Dr. Brea CauseySTECNot detectedNormalNOT DETECTEDThe [facility] CenterComment on above:Performed By: #### URIC, CMP, LIPID, DBIL, PHOS, MG #### [facility] [address] [place] [address] Dr. Brea Marshallot detectedNormalNOT DETECTEDThe [facility] CenterComment on above:Performed By: #### URIC, CMP, LIPID, DBIL, PHOS, MG #### [facility] [address] [address] [address] Brea Hurtado CholeraNot detectedNormalNOT DETECTEDThe [facility] Comment on above:Performed By: #### URIC, CMP, LIPID, DBIL, PHOS, MG #### [facility] [address] [place] [address] Dr. Brea Patel. EnterocoliticaNot detectedNormalNOT DETECTEDThe [facility] CenterComment on above:Performed By: #### URIC, CMP, LIPID, DBIL, PHOS, MG #### [facility] [address] [place] [address] Dr. Brea HarrisF 14(COMP METB)on [id number] [Mass/Vol]4.0 g/dLNormal 3.4-5.0The [facility] CenterComment on above:Performed By: #### CBC #### [facility] [address] [place] [address] Dr. Brea CauseyAlbumin/Globulin [Mass ratio]1.3 {ratio}NormalThe [facility] Cancer CenterComment on above:Performed By: #### CBC #### [facility] [address] [place] [address] Dr. Brea Guzman [Catalytic activity/Vol]142 U/LCritically pvnc73-498Mjx [facility] CenterComment on above:Performed By: #### CBC #### [facility] [address] [place] [address] Dr. Brea Diaz [Catalytic activity/Vol]39 U/WEgxehp91-10Uoh [facility] CenterComment on above:Performed By: #### CBC #### [facility] [address] [place] [address] Dr. Brea Vieira gap [Moles/Vol]13.6 mmol/LNormalThe [facility] Comment on above:Performed By: #### CBC #### [facility] [address] [address] [address] Brea CauseyAST [Catalytic activity/Vol]23 U/IOiynyh75-38Gxu [facility] on above:Performed By: #### CBC #### [facility] [address] [address] [address] Brea CauseyBilirubin [Mass/Vol]0.4 mg/dLNormal0.2-1.0[facility] Comment on above:Performed By: #### CBC #### [facility] [address] [address] [address] Brea CauseyCalcium [Mass/Vol]8.4 mg/dLCritically low8.5-10.1The [facility] CenterComselect specialty hospital on above:Performed By: #### CBC #### [facility] [address] [place] [address] Dr. Brea CauseyChloride [Moles/Vol]97 mmol/LCritically lwe87-936Jgd [facility] CenterComment on above:Performed By: #### CBC #### [facility] [address] [place] [address] Dr. Brea CauseyCO2 [Moles/Vol]26.1 mmol/QNxwoog28.0-32.0The [facility] Comment on above:Performed By: #### CBC #### [facility] [address] [place] [address] Dr. Brea CauseyCreatinine [Mass/Vol]1.21 mg/dLNormal0.70-1.30The [facility], Cancer CenterComment on above:Performed By: #### CBC #### [facility] [address] [place] [address] Dr. Guidry ChangEGFR-AF SERBIAN>60Normal>=60The [facility] Cancer CenterComselect specialty hospital on above:Performed By: #### CBC #### [facility] [address] [address] [address] Brea NapolesGFR-NON AF RZVSQDFK11 mL/min/1.58r6Qepdwxolbf low>=60The [facility], Cancer CenterComment on above:Performed By: #### CBC #### [facility] [address] [address] [address] Brea CauseyGlobulin (S) [Mass/Vol]3.2 g/dLNormSt. Rita's HospitalComment on above:Performed By: #### CBC #### [facility] [address] [address] [address] Brea CauseyGlucose [Mass/Vol]227 mg/dLCritically ctwm13-987Fws [facility] CenterComment on above:Performed By: #### CBC #### [facility] [address] [address] [address] Brea CauseyPotassium [Moles/Vol]4.7 mmol/LNormal3.5-5.1The [facility] Comment on above:Performed By: #### CBC #### [facility] [address] [place] [address] Dr. Brea CauseyProtein [Mass/Vol]7.2 g/dLNormal6.4-8.2The [facility] Comment on above:Performed By: #### CBC #### [facility] [address] [place] [address] Dr. Brea CauseySodium [Moles/Vol]132 mmol/LCritically gww971-776Wwp [facility] CenterComment on above:Performed By: #### CBC #### [facility] [address] [place] [address] Dr. Brea CauseyUrea nitrogen [Mass/Vol]12.0 mg/dLNormal7.0-18.0The [facility], Cancer CenterComment on above:Performed By: #### CBC #### [facility] [address] [place] [address] Dr. Brea Mercado nitrogen/Creatinine [Mass ratio]9.9 mg/mgNormSt. Rita's HospitalComment on above:Performed By: #### CBC #### [facility] [address] [place] [address] Dr. Brea StanfordC W/DIFFon [id number] IMM GRANS0.1 10*3/uLNormal0.0-0.2The [facility] CompanyComment on above:Performed By: #### 38184, 80005, 92438, 12881, 43422, 61863 #### [facility] [address] [address], USAABS NEUTROPHILS5.9 10*3/uLNormal1.6-7.6The [facility] CompanyComment on above:Performed By: #### 10348, 90944, 51202, 21493, 50869, 01863 #### [facility] [address] [place] [address], USABasophils (Bld) [#/Vol]0.0 10*3/uLNormal0.0-0.2The [facility] CompanyComment on above:Performed By: #### 95683, 30644, 98791, 97454, 40130, 13648 #### [facility] [address] [address], USABasophils/100 WBC (Bld)0.3 %Normal0.0-1.0The [facility] CompanyComment on above:Performed By: #### 44185, 90619, 12438, 65312, 53417, 77505 #### [facility] [address] [address], USAEosinophils (Bld) [#/Vol]0.2 10*3/uLNormal0.0-0.5The [facility] CompanyComment on above:Performed By: #### 70475, 16334, 85462, 52515, 41817, 60285 #### [facility] [address] [address], USAEosinophils/100 WBC (Bld)2.3 %Normal0.0-6.0The [facility] CompanyComment on above:Performed By: #### 06335, 08085, 96642, 96182, 76113, 42734 #### [facility] [address] [place] [address], USAErythrocyte distribution width (RBC) [Ratio]13.4 %Normal 11.5-15.0The [facility] CompanyComment on above:Performed By: #### 27642, 54053, 08638, 29500, 11701, 79122 #### [facility] [address] [place] [address], [facility] HOSPITALHematocrit (Bld) [Volume fraction]36.1 %Low39.0-50.0The [facility] CompanyComment on above:Performed By: #### 39527, 98035, 62127, 63611, 54271, 03231 #### [facility] [address] [address], [facility]UNI HOSPITALHemoglobin (Bld) [Mass/Vol]11.9 g/dLLow13.0-17.0The [facility] CompanyComment on above:Performed By: #### 62069, 21270, 40865, 15642, 21063, 73209 #### [facility] [address] [place] [address], USAIMMATURE GRANS0.7 %Normal0.0-1.0The [facility] CompanyComment on above:Performed By: #### 76648, 88023, 03136, 09138, 10339, 02854 #### [facility] [address] [address], USALymphocytes (Bld) [#/Vol]0.9 10*3/uLLow1.2-4.0The [facility] CompanyComment on above:Performed By: #### 69696, 60019, 21733, 02049, 75566, 82718 #### [facility] [address] [place] [address], USALymphocytes/100 WBC (Bld)12.1 %Low20.0-45.0The [facility] CompanyComment on above:Performed By: #### 58797, 39894, 51261, 10601, 07244, 12273 #### [facility] [address] [place] [address], [facility] (RBC) [Entitic mass]29.3 zpDqrtcc80.0-33.0The [facility] CompanyComment on above:Performed By: #### 86004, 91119, 42411, 40815, 43983, 63267 #### [facility] [address] [place] [address], [facility] (RBC) [Mass/Vol]33.0 g/fENcbgta56.0-35.0The [facility] CompanyComment on above:Performed By: #### 02271, 33004, 58099, 52847, 78605, 33542 #### [facility] [address] [place] [address], [facility] (RBC) [Entitic vol]88.9 nYHigimc44.0-98.0The [facility] CompanyComment on above:Performed By: #### 53920, 06031, 61910, 31187, 34813, 77036 #### [facility] [address] [place] [address], USAMonocytes (Bld) [#/Vol]0.6 10*3/uLNormal0.1-1.0The [facility] CompanyComment on above:Performed By: #### 87315, 45634, 92010, 62701, 15463, 60842 #### [facility] [address] [place] [address], USAMONOS8.3 %Normal5.0-12.0The [facility] CompanyComment on above:Performed By: #### 95325, 13680, 52125, 02417, 08894, 16909 #### [facility] [address] [place] [address], USANeutrophils/100 WBC (Bld)76.3 %High40.0-72.0The [facility] CompanyComment on above:Performed By: #### 35485, 86837, 73654, 55478, 80856, 38626 #### [facility] [address] [place] [address], USANucleated RBC/100 WBC (Bld) [Ratio]0 %Normal0-0The [facility] CompanyComment on above:Performed By: #### 02026, 10933, 73071, 79910, 56986, 38637 #### [facility] [address] [place] [address], USAPLAT FRW577 10*3/dYLpdyms141-638Mse [facility] CompanyComment on above:Performed By: #### 24314, 48992, 21893, 64275, 20031, 37733 #### [facility] [address] [place] [address], USARBC (Bld) [#/Vol]4.06 10*6/uLLow4.20-5.70The [facility] CompanyComment on above:Performed By: #### 66815, 60411, 61990, 55106, 05651, 97268 #### [facility] [address] [place] [address], USAWBC (Bld) [#/Vol]7.68 10*3/uLNormal4.00-10.60The [facility] CompanyComment on above:Performed By: #### 67616, 87852, 25158, 09136, 80556, 46802 #### [facility] [address] [place] [address], USACOMP METABOLIC PANELon 63-15-8118Pnznxhl [Mass/Vol]4.4 g/dL Normal3.5-5.7The [facility] CompanyComment on above:Performed By: #### 52848, 99045, 79517, 64945, 46738, 89336 #### [facility] [address] [place] [address], USAALKALINE IMQJHS167 IU/GDmaq43-047Trq [facility] CompanyComment on above:Performed By: #### 68038, 57055, 78471, 78031, 92437, 18500 #### [facility] [address] [place] [address], USAALT [Catalytic activity/Vol]26 U/LNormal7-52The [facility] CompanyComment on above:Performed By: #### 13835, 19281, 75748, 25949, 33227, 43094 #### [facility] [address] [place] [address], USAAST [Catalytic activity/Vol]17 U/FFxpvdg65-10Ros [facility] CompanyComment on above:Performed By: #### 29835, 23377, 45019, 43819, 97962, 88467 #### [facility] [address] [place] [address], USABilirubin [Mass/Vol]0.4 mg/dLNormal0.3-1.0The [facility] CompanyComment on above:Performed By: #### 64447, 56771, 67915, 80724, 28536, 82932 #### [facility] [address] [place] [address], USACalcium [Mass/Vol]8.6 mg/dLNormal8.6-10.3The [facility] CompanyComment on above:Performed By: #### 65883, 21268, 78287, 79282, 12850, 62021 #### [facility] [address] [place] [address], USAChloride [Moles/Vol]97 mmol/TOkf96-869Any [facility] CompanyComment on above:Performed By: #### 38139, 41933, 72626, 65235, 26035, 13609 #### [facility] [address] [place] [address], USACO2 [Moles/Vol]26 mmol/XCgmihf20-37Wai [facility] CompanyComment on above:Performed By: #### 38014, 12416, 43651, 37558, 24310, 10489 #### [facility] [address] [place] [address], USACreatinine [Mass/Vol]1.04 mg/dLNormal0.70-1.30The [facility] CompanyComment on above:Performed By: #### 85579, 11426, 73316, 85740, 49562, 78286 #### [facility] [address] [place] [address], USAGFR/1.73 sq M.predicted among blacks MDRD (S/P/Bld) [Vol rate/Area]mL/min/{1.73_m2}Normal>60The [facility] Comment on above:Performed By: #### 65326, 55582, 54492, 51583, 88372, 20812 #### [facility] [address] [place] [address], USAGFR/1.73 sq M.predicted among non-blacks MDRD (S/P/Bld) [Vol rate/Area]mL/min/{1.73_m2}Normal>60The [facility] Comment on above:Performed By: #### 03061, 35044, 65922, 95488, 96160, 56831 #### [facility] [address] [place] [address], USAGlucose [Mass/Vol]158 mg/aKOnbc46-443Xgl [facility] CompanyComment on above:Performed By: #### 90868, 24246, 12116, 97464, 48098, 20999 #### [facility] [address] [place] [address], USAPotassium [Moles/Vol]4.4 mmol/LNormal3.5-5.1The [facility] [place] Medical CenterComment on above:Performed By: #### 93775, 42441, 33916, 31928, 50014, 62827 #### [facility] [address] [place] [address], USAProtein [Mass/Vol]6.6 g/dLNormal6.0-8.3The [facility] CompanyComment on above:Performed By: #### 34658, 90796, 81593, 56760, 24413, 96307 #### [facility] [address] [place] [address], USASodium [Moles/Vol]131 mmol/WYyp918-964Gla [facility] CompanyComment on above:Performed By: #### 95075, 96791, 65585, 56514, 65444, 36579 #### [facility] [address] [place] [address], USAUrea nitrogen [Mass/Vol]15 mg/dLNormal7-25The [facility] CompanyComment on above:Performed By: #### 52904, 47620, 49325, 09365, 72768, 72955 #### [facility] [address] [place] [address], USADIRECT BILIon 94-59-9761Scegxaikx.direct [Mass/Vol]0.1 mg/dLNormal0.0-0.2The [facility] CompanyComment on above: Performed By: #### 92028, 07650, 77694, 50233, 56269, 00487 #### [facility] [address] [place] [address], USALIPID PROFILEon 04-63-3511Bzexveyhjzp [Mass/Vol]70 mg/dLLow 120-200The [facility] CompanyComment on above:Result Comment: CHOLESTEROL REFERENCE RANGE: 20 YEARS AND OLDER CARDIOVASCULAR RISK Less than 200 mg/dl Low Risk 200 to 239 mg/dl Borderline Risk 240 mg/dl and greater High RiskPerformed By: #### 70612, 20259, 60270, 86932, 96574, 48964 #### [facility] [address] [place] [address], USACholesterol in HDL [Mass/Vol]35 mg/dDZvsvqa01-52Odk [facility] CompanyComment on above:Result Comment: Slight variation in normal range could be due to gender and/or age. HDL CHOLESTEROL REFERENCE RANGE: 20 years and older Cardiovascular Risk > or =60 mg/dL Desirable 40 TO 59 mg/dL Low Risk <40 mg/dL High RiskPerformed By: #### 76356, 32159, 87841, 10063, 10279, 46962 #### [facility] [address] [place] [address], USACholesterol in LDL [Mass/Vol]20 mg/dLNormal0-130The [facility] CompanyComment on above:Result Comment: LDL IS A CALCULATION LDL IS ONLY VALID IF THE TRIG IS LESS THAN 400.Performed By: #### 52762, 87980, 88678, 84248, 60534, 62501 #### [facility] [address] [place] [address], USACholesterol.total/Cholesterol in HDL [Mass ratio]2.0 {ratio}Normal.0-4.5The [facility] CompanyComment on above: Performed By: #### 38523, 93538, 51748, 11638, 17907, 21482 #### [facility] [address] [place] [address], USANON-HDL NJGVFOPRFCI11 mg/dLNormalThe [facility] CompanyComment on above:Performed By: #### 59364, 20381, 29115, 64267, 44639, 37031 #### [facility] [address] [place] [address], USATriglyceride [Mass/Vol]73 mg/eFTuwelp85-518Nge [facility] CompanyComment on above:Result Comment: TRIGLYCERIDE REFERENCE RANGE: 20 YEARS AND OLDER CARDIOVASCULAR RISK LESS THAN 150 mg/dl LOW RISK 150 TO 199 mg/dl BORDERLINE RISK 200 mg/dl AND GREATER HIGH RISKPerformed By: #### 46408, 32733, 78932, 59755, 00593, 85487 #### [facility] [address] [place] [address], USAVLDL CHOL15 mg/dLNormal0-40The [facility] CompanyComment on above:Performed By: #### 72745, 99604, 21390, 25454, 37115, 42623 #### [facility] [address] [place] [address], USAMAGNESIUM BLOODon 18-29-7078Tvtjnutwq [Mass/Vol]1.1 mg/dL Critically low1.9-2.7The [facility] CompanyComment on above: Performed By: #### 37711, 93109, 66658, 78308, 09946, 32342 #### [facility] [address] [place] [address], USAPHOSPHORUS BLOODon 53-17-5319Vnzswrkig [Mass/Vol]3.0 mg/dL Normal2.5-5.0The [facility] CompanyComment on above:Performed By: #### 78786, 43657, 50310, 39586, 39064, 45556 #### [facility] [address] [place] [address], USAPROSPERAon [id number] KITResults to be mailed directly to physician's office by reference lab.NormalThe [facility] CompanyComment on above:Result Comment: Test performed by [id number] [place] [address] Specimen collected for transplant patient and sent to [facility] per instructions. No charge. No result expected. For billing and tracking purposes only.Performed By: #### 51027, 50736, 29966, 28545, 94156, 67861 #### [facility] [address] [facility] [place] [place] [address], USARESULTResults to be mailed directly to physician's office by reference lab.NormalThe [facility] CompanyComment on above: Performed By: #### 67856, 88748, 91306, 33583, 66051, 23592 #### [facility] [address] [facility] [place] [address], USATACROLIMUSon [id number] (Bld) [Mass/Vol]7.6 ng/mL Normal5.0-20.0The [facility] CompanyComment on above:Result Comment: The [employer] Tacrolimus assay is a delayed one-step immunoassay for the quantitative determination of tacrolimus in human whole blood using the chemiluminescent microparticle immunoassay (CMIA) technology with flexible assay protocols, referred to as Chemiflex.Performed By: #### 38859, 58785, 45656, 15908, 84067, 54861 #### [facility] [address] [facility] [place] [address], USAURIC ACID BLOODon [id number] [Mass/Vol]7.8 mg/dLHigh 4.4-7.6The [facility] CompanyComment on above:Performed By: #### 85326, 18863, 05418, 96828, 28855, 36296 #### [facility] [address] [facility] [place] [address], USANM PARATHYROID WITH SPECT AND CTon [id number] PARATHYROID WITH SPECT AND CTUnMercer County Community Hospital Department of Radiology [address] [place] [id number] Patient Name: ROGER SUAREZ : 1950 Sex: M Age: Race: White Pt. Location: Patient Status: D Ordered Date: 06/26/2021 8:40:00 AM Completed Date: 07/24/2021 01:21 PM Requesting Provider: NAGA BOSCH Attending Provider: NAGA BOSCH Report Copy To: VERNANateJERICHO Signs & Symptoms: E21.3 Hyperparathyroidism, unspecified I10 History: Sammi NPC Req. per [facility]are A/B for CPT 72425 *SLA Comments: , , , Ordering Provider [...] SPECT. Electronically signed: Nan Earl. Transcribed by: [email or web address], User Resident: Electronically Signed by: NAN Evangelist EARL @ 07/27/2021 12:13 PMNormalThe [facility] CompanyComment on above:Order Comment: , , , Ordering Provider - NAGA BOSCH MD , CBC W/DIFFon [id number] IMM GRANS0.1 10*3/uLNormal0.0-0.2The [facility] CompanyComment on above:Performed By: #### [id number], [id number], 99708, 97849, 24259, [id number] #### [facility] [address] [place] [place] [address], USAABS NEUTROPHILS4.7 10*3/uLNormal1.6-7.6The [facility] CompanyComment on above:Performed By: #### [id number], 71487, 44512, 73799, 40672, 79716 #### [facility] [address] [facility] [place] [address], USABasophils (Bld) [#/Vol]0.0 10*3/uLNormal0.0-0.2The [facility] CompanyComment on above:Performed By: #### 18408, 35944, 85443, 70854, 34623, 04935 #### [facility] [address] [facility] [place] [address], USABasophils/100 WBC (Bld)0.6 %Normal0.0-1.0The [facility] CompanyComment on above:Performed By: #### 86126, 87241, 57874, 78971, 86164, 70844 #### [facility] [address] [facility] [place] [address], USAEosinophils (Bld) [#/Vol]0.2 10*3/uLNormal0.0-0.5The [facility] CompanyComment on above:Performed By: #### 09597, 92661, 63051, 04808, 70651, 60404 #### [facility] [address] [place] [address], USAEosinophils/100 WBC (Bld)2.5 %Normal0.0-6.0The [facility] CompanyComment on above:Performed By: #### 68443, 54030, 05381, 00696, 94200, 24726 #### [facility] [address] [place] [address], USAErythrocyte distribution width (RBC) [Ratio]13.6 %Normal 11.5-15.0The [facility] CompanyComment on above:Performed By: #### 40088, 06360, 09450, 98991, 29925, 59522 #### [facility] [address] [place] [address], USAHematocrit (Bld) [Volume fraction]36.3 %Low39.0-50.0The [facility] CompanyComment on above:Performed By: #### 82661, 87206, 58721, 40405, 68575, 34218 #### [facility] [address] [facility] [place] [place] [address], USAHemoglobin (Bld) [Mass/Vol]11.7 g/dLLow13.0-17.0The [facility] CompanyComment on above:Performed By: #### 78144, 30745, 68897, 21942, 54298, 00137 #### [facility] [address] [facility] [place] [address], USAIMMATURE GRANS0.8 %Normal0.0-1.0The [facility] CompanyComment on above:Performed By: #### 23319, 63521, 74954, 10171, 73444, 79404 #### [facility] [address] [place] [address], USALymphocytes (Bld) [#/Vol]0.9 10*3/uLLow1.2-4.0The [facility] CompanyComment on above:Performed By: #### 41504, 88577, 62311, 91033, 51082, 80752 #### [facility] [address] [facility] [place] [address], [facility] HOSPITALLymphocytes/100 WBC (Bld)13.6 %Low20.0-45.0The [facility] CompanyComment on above:Performed By: #### 72992, 65034, 75027, 30430, 80535, 79990 #### [facility] [address] [facility] [place] [place] [address], [facility] ([facility]) [Entitic mass]28.6 ftWbzpbs30.0-33.0The [facility] CompanyComment on above:Performed By: #### 91640, 76861, 34099, 93980, 24960, 51067 #### [facility] [address] [facility] [place] [place] [address], [facility] (RBC) [Mass/Vol]32.2 g/tJWrihrx22.0-35.0The [facility] CompanyComment on above:Performed By: #### 73528, 51846, 50673, 78299, 22273, 75944 #### [facility] [address] [facility] [place] [place] [address], [facility] (RBC) [Entitic vol]88.8 sINtsdpg87.0-98.0The [facility] CompanyComment on above:Performed By: #### 78823, 21697, 61016, 31730, 31120, 45386 #### [facility] [address] [facility] [place] [place] [address], [facility] HOSPITALMonocytes (Bld) [#/Vol]0.6 10*3/uLNormal0.1-1.0The [facility] CompanyComment on above:Performed By: #### 79219, 87904, 24338, 13080, 15950, 28595 #### [facility] [address] [place] [address], USAMONOS9.6 %Normal5.0-12.0The [facility] CompanyComment on above:Performed By: #### 39295, 26324, 80658, 87565, 98297, 38653 #### [facility] [address] [place] [address], USANeutrophils/100 WBC (Bld)72.9 %High40.0-72.0The [facility] CompanyComment on above:Performed By: #### 17452, 87235, 08557, 27937, 87914, 54890 #### [facility] [address] [place] [address], USANucleated RBC/100 WBC (Bld) [Ratio]0 %Normal0-0The [facility] CompanyComment on above:Performed By: #### 80843, 10171, 55630, 14892, 35599, 72549 #### [facility] [address] [place] [address], USAPLAT EUW410 10*3/wWQimgrd117-604Wqt [facility] CompanyComment on above:Performed By: #### 34047, 68450, 51355, 96520, 03226, 19600 #### [facility] [address] [place] [address], USARBC (Bld) [#/Vol]4.09 10*6/uLLow4.20-5.70The [facility] CompanyComment on above:Performed By: #### 39929, 10774, 02273, 42666, 24765, 89395 #### [facility] [address] [place] [address], USAWBC (Bld) [#/Vol]6.45 10*3/uLNormal4.00-10.60The [facility] CompanyComment on above:Performed By: #### 83322, 47368, 08074, 50394, 66050, 05720 #### [facility] [address] [place] [address], USACOMP METABOLIC PANELon 45-09-9158Yvqkwmn [Mass/Vol]4.3 g/dL Normal3.5-5.7The [facility] CompanyComment on above:Performed By: #### 73524, 64984, 09537, 16055, 65382, 63538 #### [facility] [address] [place] [address], USAALKALINE [id number] IU/TZmzv27-771Gmt [facility] CompanyComment on above:Performed By: #### 46414, 36029, 26923, 86689, 14011, 13212 #### [facility] [address] [place] [address], USAALT [Catalytic activity/Vol]18 U/LNormal7-52The [facility] CompanyComment on above:Performed By: #### 40539, 73411, 59306, 89346, 30836, 27418 #### [facility] [address] [place] [address], USAAST [Catalytic activity/Vol]15 U/ZPnvzhg36-52Cak [facility] CompanyComment on above:Performed By: #### 22215, 60005, 14494, 56504, 27318, 58331 #### [facility] [address] [place] [address], USABilirubin [Mass/Vol]0.3 mg/dLNormal0.3-1.0The [facility] CompanyComment on above:Performed By: #### 76149, 76106, 80212, 45883, 57034, 28895 #### [facility] [address] [place] [address], USACalcium [Mass/Vol]10.6 mg/dLHigh8.6-10.3The [facility] CompanyComment on above:Performed By: #### 18571, 97785, 74372, 20487, 45345, 13049 #### [facility] [address] [place] [address], USAChloride [Moles/Vol]102 mmol/KBqfswx65-673Coz [facility] CompanyComment on above:Performed By: #### 16178, 94566, 95248, 60054, 08574, 42251 #### [facility] [address] [place] [address], USACO2 [Moles/Vol]24 mmol/LVdlslm55-16Agf [facility] CompanyComment on above:Performed By: #### 29055, 28021, 31132, 33674, 21794, 62032 #### [facility] [address] [place] [address], USACreatinine [Mass/Vol]1.04 mg/dLNormal0.70-1.30The [facility] CompanyComment on above:Performed By: #### 54632, 10833, 16571, 55111, 05368, 33015 #### [facility] [address] [place] [address], USAGFR/1.73 sq M.predicted among blacks MDRD (S/P/Bld) [Vol rate/Area]mL/min/{1.73_m2}Normal>60The [facility] Comment on above:Performed By: #### 35196, 62290, 77685, 90143, 01361, 19269 #### [facility] [address] [place] [address], USAGFR/1.73 sq M.predicted among non-blacks MDRD (S/P/Bld) [Vol rate/Area]mL/min/{1.73_m2}Normal>60The [facility] Comment on above:Performed By: #### 03660, 78896, 24771, 20774, 17842, 76430 #### [facility] [address] [place] [address], USAGlucose [Mass/Vol]167 mg/iBYyqd61-770Nev [facility] CompanyComment on above:Performed By: #### 80347, 45027, 85796, 33258, 64640, 61413 #### [facility] [address] [place] [address], USAPotassium [Moles/Vol]5.3 mmol/LHigh3.5-5.1The [facility] CompanyComment on above:Performed By: #### 81595, 85163, 78398, 19955, 80877, 07088 #### [facility] [address] [place] [address], USAProtein [Mass/Vol]6.5 g/dLNormal6.0-8.3The [facility] CompanyComment on above:Performed By: #### 34911, 18214, 41216, 94206, 57942, 75880 #### [facility] [address] [place] [address], USASodium [Moles/Vol]134 mmol/USjt216-848Jop [facility] CompanyComment on above:Performed By: #### 28978, 93939, 36434, 53120, 56682, 29486 #### [facility] [address] [place] [address], USAUrea nitrogen [Mass/Vol]11 mg/dLNormal7-25The [facility] CompanyComment on above:Performed By: #### 73944, 88427, 81903, 00338, 23847, 43372 #### [facility] [address] [place] [address], USADIRECT BILIon 56-68-6095Hwyjdaome.direct [Mass/Vol]0.1 mg/dLNormal0.0-0.2The [facility] CompanyComment on above: Performed By: #### 00244, 39031, 84330, 00302, 62880, 33333 #### [facility] [address] [place] [address], USALIPID PROFILEon 62-50-5022Hiayjxqgate [Mass/Vol]77 mg/dLLow 120-200The [facility] CompanyComment on above:Result Comment: CHOLESTEROL REFERENCE RANGE: 20 YEARS AND OLDER CARDIOVASCULAR RISK Less than 200 mg/dl Low Risk 200 to 239 mg/dl Borderline Risk 240 mg/dl and greater High RiskPerformed By: #### 14469, 51645, 84785, 58367, 88511, 71889 #### [facility] [address] [place] [address], USACholesterol in HDL [Mass/Vol]40 mg/nBBludxk41-27Zoq [facility] CompanyComment on above:Result Comment: Slight variation in normal range could be due to gender and/or age. HDL CHOLESTEROL REFERENCE RANGE: 20 years and older Cardiovascular Risk > or =60 mg/dL Desirable 40 TO 59 mg/dL Low Risk <40 mg/dL High RiskPerformed By: #### 04655, 62071, 16750, 28104, 22563, 13564 #### [facility] [address] [place] [address], USACholesterol in LDL [Mass/Vol]24 mg/dLNormal0-130The [facility] CompanyComment on above:Result Comment: LDL IS A CALCULATION LDL IS ONLY VALID IF THE TRIG IS LESS THAN 400.Performed By: #### 19869, 87290, 22357, 61944, 40811, 50202 #### [facility] [address] [place] [address], USACholesterol.total/Cholesterol in HDL [Mass ratio]1.9 {ratio}Normal.0-4.5The [facility] CompanyComment on above: Performed By: #### 19063, 70384, 76403, 96648, 71066, 65224 #### [facility] [address] [place] [address], USANON-HDL RUEQSLEOOBE72 mg/dLNormalThe [facility] CompanyComment on above:Performed By: #### 86672, 16510, 58201, 75842, 79705, 97339 #### [facility] [address] [address], USATriglyceride [Mass/Vol]63 mg/hORnkrur98-674Qzi [facility] CompanyComment on above:Result Comment: TRIGLYCERIDE REFERENCE RANGE: 20 YEARS AND OLDER CARDIOVASCULAR RISK LESS THAN 150 mg/dl LOW RISK 150 TO 199 mg/dl BORDERLINE RISK 200 mg/dl AND GREATER HIGH RISKPerformed By: #### 57609, 57506, 86555, 30717, 53643, 74825 #### [facility] [address] [facility] [place] [place] [address], USAVLDL CHOL13 mg/dLNormal0-40The [facility] CompanyComment on above:Performed By: #### 60528, 27489, 46349, 05814, 98993, 36397 #### [facility] [address] [facility] [place] [address], USAMAGNESIUM BLOODon 35-90-0525Hkggpdylp [Mass/Vol]1.4 mg/dL Low1.9-2.7The [facility] CompanyComment on above:Performed By: #### 64646, 59393, 94241, 54914, 91267, 54860 #### [facility] [address] [facility] [place] [address], USAPHOSPHORUS BLOODon 04-21-7575Cvwujqmxj [Mass/Vol]2.5 mg/dL Normal2.5-5.0The [facility] CompanyComment on above:Performed By: #### 91911, 21026, 40303, 12134, 57429, 29530 #### [facility] [address] [facility] [place] [place] [address], USAPTH INTACTon 80-87-4924XAR JWARCI614 pg/rZTtov19-22Pji [facility] CompanyComment on above:Performed By: #### 09757, 92056, 78383, 55954, 97108, 24676 #### [facility] [address] [facility] [place] [address], USATACROLIMUSon 87-29-2403Mpzzlhraia (Bld) [Mass/Vol]21.0 ng/mLHigh5.0-20.0The [facility] CompanyComment on above:Result Comment: The [employer] Tacrolimus assay is a delayed one-step immunoassay for the quantitative determination of tacrolimus in human whole blood using the chemiluminescent microparticle immunoassay (CMIA) technology with flexible assay protocols, referred to as Chemiflex.Performed By: #### 60209, 32117, 98427, 50892, 07540, 15612 #### [facility] [address] [facility] [place] [address], USAURIC ACID BLOODon 91-89-4727Fujos [Mass/Vol]7.9 mg/dLHigh 4.4-7.6The [facility] CompanyComment on above:Performed By: #### 33043, 68006, 40392, 22669, 21968, 92553 #### [facility] [address] [facility] [place] [address], [facility]OSPITALCBC W/DIFFon [id number] IMM GRANS0.1 10*3/uLNormal 0.0-0.2The [facility] CompanyComment on above:Performed By: #### 89994, 27367, 48734, 81791, 79782, 91555 #### [facility] [address] [facility] [place] [address], USAABS NEUTROPHILS5.2 10*3/uLNormal1.6-7.6The [facility] CompanyComment on above:Performed By: #### 68483, 59974, 33379, 27328, 96456, 86548 #### [facility] [address] [facility] [place] [address], USABasophils (Bld) [#/Vol]0.0 10*3/uLNormal0.0-0.2The [facility] CompanyComment on above:Performed By: #### 21158, 00931, 48141, 45735, 68941, 07887 #### [facility] [address] [facility] [place] [address], USABasophils/100 WBC (Bld)0.4 %Normal0.0-1.0The [facility] CompanyComment on above:Performed By: #### 14239, 41200, 91730, 31913, 87279, 20104 #### [facility] [address] [facility] [place] [address], USAEosinophils (Bld) [#/Vol]0.2 10*3/uLNormal0.0-0.5The [facility] CompanyComment on above:Performed By: #### 94958, 69585, 29566, 16658, 17348, 75043 #### [facility] [address] [place] [address], USAEosinophils/100 WBC (Bld)2.9 %Normal0.0-6.0The [facility] CompanyComment on above:Performed By: #### 00888, 91879, 37260, 33321, 19276, 76153 #### [facility] [address] [place] [address], USAErythrocyte distribution width (RBC) [Ratio]13.3 %Normal 11.5-15.0The [facility] CompanyComment on above:Performed By: #### 27499, 10691, 81523, 33901, 05952, 13660 #### [facility] [address] [place] [address], USAHematocrit (Bld) [Volume fraction]37.1 %Low39.0-50.0The [facility] CompanyComment on above:Performed By: #### 31797, 41011, 24278, 37825, 13820, 90247 #### [facility] [address] [place] [address], USAHemoglobin (Bld) [Mass/Vol]11.7 g/dLLow13.0-17.0The [facility] CompanyComment on above:Performed By: #### 10965, 26414, 34027, 15996, 54206, 80357 #### [facility] [address] [place] [address], USAIMMATURE GRANS0.9 %Normal0.0-1.0The [facility] CompanyComment on above:Performed By: #### 58971, 03896, 96316, 40276, 36213, 37530 #### [facility] [address] [place] [address], USALymphocytes (Bld) [#/Vol]0.9 10*3/uLLow1.2-4.0The [facility] CompanyComment on above:Performed By: #### 91411, 74152, 09788, 72732, 98516, 81805 #### [facility] [address] [place] [address], USALymphocytes/100 WBC (Bld)12.5 %Low20.0-45.0The [facility] CompanyComment on above:Performed By: #### 42673, 45954, 49406, 87305, 94067, 22973 #### [facility] [address] [address], [facility] (RBC) [Entitic mass]29.0 ozMhurfq08.0-33.0The [facility] CompanyComment on above:Performed By: #### 00823, 90006, 12942, 44347, 06876, 87828 #### [facility] [address] [place] [address], [facility] HOSPITALMCHC (RBC) [Mass/Vol]31.5 g/dLLow32.0-35.0The [facility] CompanyComment on above:Performed By: #### 99592, 27293, 99798, 09530, 63886, 80836 #### [facility] [address] [place] [address], [facility] HOSPITALMCV (RBC) [Entitic vol]92.1 hWHndqfd02.0-98.0The [facility] CompanyComment on above:Performed By: #### 69573, 73806, 96909, 36196, 48835, 52632 #### [facility] [address] [place] [address], [facility]I HOSPITALMonocytes (Bld) [#/Vol]0.6 10*3/uLNormal0.1-1.0The [facility] CompanyComment on above:Performed By: #### 41734, 31204, 59905, 85001, 39123, 43004 #### [facility] [address] [address], USAMONOS8.6 %Normal5.0-12.0The [facility] CompanyComment on above:Performed By: #### 42164, 67356, 04455, 80542, 63324, 16854 #### [facility] [address] [facility] [place] [address], ZUNI HOSPITALNeutrophils/100 WBC (Bld)74.7 %High40.0-72.0The [facility] CompanyComment on above:Performed By: #### 48142, 41638, 55263, 33092, 42245, 34253 #### [facility] [address] [facility] [place] [address], USANucleated RBC/100 WBC (Bld) [Ratio]0 %Normal0-0The [facility] CompanyComment on above:Performed By: #### 07022, 21143, 22678, 21875, 23081, 91138 #### [facility] [address] [place] [address], USAPLAT PYC055 10*3/bZCreqae682-703Bcn [facility] CompanyComment on above:Performed By: #### 01572, 92995, 82535, 44865, 46158, 81801 #### [facility] [address] [place] [address], USARBC (Bld) [#/Vol]4.03 10*6/uLLow4.20-5.70The [facility] CompanyComment on above:Performed By: #### 07448, 48463, 82076, 33746, 95016, 37771 #### [facility] [address] [place] [address], USAWBC (Bld) [#/Vol]6.96 10*3/uLNormal4.00-10.60The [facility] CompanyComment on above:Performed By: #### 69135, 90665, 56401, 81249, 44468, 91496 #### [facility] [address] [place] [address], USACOMP METABOLIC PANELon 01-03-1973Hpiymuq [Mass/Vol]4.3 g/dL Normal3.5-5.7The [facility] CompanyComment on above:Performed By: #### 23887, 02399, 92122, 34666, 48239, 28230 #### [facility] [address] [place] [address], USAALKALINE HJUKPZ181 IU/KUoka42-914Ufk [facility] CompanyComment on above:Performed By: #### 31850, 56984, 94784, 33343, 69057, 28587 #### [facility] [address] [place] [address], USAALT [Catalytic activity/Vol]17 U/LNormal7-52The [facility] CompanyComment on above:Performed By: #### 31877, 78527, 40999, 34196, 51089, 00212 #### [facility] [address] [place] [address], USAAST [Catalytic activity/Vol]16 U/PDydvuu96-23Tbr [facility] CompanyComment on above:Performed By: #### 90891, 26773, 65682, 94899, 00239, 98137 #### [facility] [address] [place] [address], USABilirubin [Mass/Vol]0.4 mg/dLNormal0.3-1.0The [facility] CompanyComment on above:Performed By: #### 83146, 41388, 55708, 39925, 74420, 54179 #### [facility] [address] [place] [address], USACalcium [Mass/Vol]10.5 mg/dLHigh8.6-10.3The [facility] CompanyComment on above:Performed By: #### 62163, 02096, 08541, 88588, 77645, 72121 #### [facility] [address] [place] [address], USAChloride [Moles/Vol]99 mmol/UOychsm58-534Ksb [facility] CompanyComment on above:Performed By: #### 05421, 49709, 50988, 95824, 56275, 49219 #### [facility] [address] [place] [address], USACO2 [Moles/Vol]27 mmol/SRaoqrx52-98Zgz [facility] CompanyComment on above:Performed By: #### 18275, 61574, 00495, 24340, 48598, 49515 #### [facility] [address] [place] [address], USACreatinine [Mass/Vol]1.04 mg/dLNormal0.70-1.30The [facility] CompanyComment on above:Performed By: #### 10734, 05376, 19960, 53763, 63221, 55097 #### [facility] [address] [place] [address], USAGFR/1.73 sq M.predicted among blacks MDRD (S/P/Bld) [Vol rate/Area]mL/min/{1.73_m2}Normal>60The [facility] Comment on above:Performed By: #### 04476, 27234, 36967, 60053, 01697, 51396 #### [facility] [address] [place] [address], USAGFR/1.73 sq M.predicted among non-blacks MDRD (S/P/Bld) [Vol rate/Area]mL/min/{1.73_m2}Normal>60The [facility] Comment on above:Performed By: #### 47533, 93036, 98135, 95188, 31845, 71669 #### [facility] [address] [place] [address], USAGlucose [Mass/Vol]139 mg/aKSfxw52-952Brj [facility] CompanyComment on above:Performed By: #### 50067, 77068, 45052, 61346, 26586, 68857 #### [facility] [address] [place] [address], USAPotassium [Moles/Vol]5.1 mmol/LNormal3.5-5.1The [facility] CompanyComment on above:Performed By: #### 95477, 15734, 32399, 89775, 93000, 78394 #### [facility] [address] [place] [address], USAProtein [Mass/Vol]6.5 g/dLNormal6.0-8.3The [facility] CompanyComment on above:Performed By: #### 24009, 56037, 62420, 13348, 42753, 43761 #### [facility] [address] [place] [address], USASodium [Moles/Vol]133 mmol/UPjk842-019Lge [facility] CompanyComment on above:Performed By: #### 46859, 21585, 08552, 26957, 97713, 91694 #### [facility] [address] [place] [address], USAUrea nitrogen [Mass/Vol]11 mg/dLNormal7-25The [facility] CompanyComment on above:Performed By: #### 46435, 70134, 78283, 93501, 97160, 68415 #### [facility] [address] [place] [address], USADIRECT BILIon 74-60-5076Ozuzlnnsz.direct [Mass/Vol]0.1 mg/dLNormal0.0-0.2The [facility] CompanyComment on above: Performed By: #### 83656, 62993, 04913, 49656, 11973, 72838 #### [facility] [address] [place] [address], USALIPID PROFILEon [id number] [Mass/Vol]82 mg/dLLow 120-200The [facility] CompanyComment on above:Result Comment: CHOLESTEROL REFERENCE RANGE: 20 YEARS AND OLDER CARDIOVASCULAR RISK Less than 200 mg/dl Low Risk 200 to 239 mg/dl Borderline Risk 240 mg/dl and greater High RiskPerformed By: #### 02114, 10264, 30873, 87270, 61746, 94362 #### [facility] [address] [place] [address], USACholesterol in HDL [Mass/Vol]38 mg/pHZgqgft70-05Wjf [facility] CompanyComment on above:Result Comment: Slight variation in normal range could be due to gender and/or age. HDL CHOLESTEROL REFERENCE RANGE: 20 years and older Cardiovascular Risk > or =60 mg/dL Desirable 40 TO 59 mg/dL Low Risk <40 mg/dL High RiskPerformed By: #### 17917, 82023, 33754, 30966, 51950, 75146 #### [facility] [address] [place] [address], USACholesterol in LDL [Mass/Vol]25 mg/dLNormal0-130The [facility] CompanyComment on above:Result Comment: LDL IS A CALCULATION LDL IS ONLY VALID IF THE TRIG IS LESS THAN 400.Performed By: #### 83616, 88793, 92163, 52811, 50261, 76291 #### [facility] [address] [place] [address], USACholesterol.total/Cholesterol in HDL [Mass ratio]2.2 {ratio}Normal.0-4.5The [facility] CompanyComment on above: Performed By: #### 11534, 22036, 30364, 77791, 91303, 06186 #### [facility] [address] [place] [address], [place]ON-HDL [id number] mg/dLNormalThe [facility] CompanyComment on above:Performed By: #### 38805, 59446, 82745, 77257, 78863, 56961 #### [facility] [address] [address], USATriglyceride [Mass/Vol]93 mg/[id number] [facility] CompanyComment on above:Result Comment: TRIGLYCERIDE REFERENCE RANGE: 20 YEARS AND OLDER CARDIOVASCULAR RISK LESS THAN 150 mg/dl LOW RISK 150 TO 199 mg/dl BORDERLINE RISK 200 mg/dl AND GREATER HIGH RISKPerformed By: #### 91951, 48170, 86552, 91600, 66312, 96841 #### [facility] [address] [place] [address], USAVLDL CHOL19 mg/dLNormal0-40The [facility] CompanyComment on above:Performed By: #### 12487, 34232, 93543, 51071, 05405, 52112 #### [facility] [address] [place] [address], USAMAGNESIUM BLOODon [id number] [Mass/Vol]1.8 mg/dL Low1.9-2.7The [facility] CompanyComment on above:Performed By: #### 95099, 94035, 50855, 45521, 17313, 98871 #### [facility] [address] [place] [address], USAPHOSPHORUS BLOODon [id number] [Mass/Vol]3.0 mg/dL Normal2.5-5.0The [facility] CompanyComment on above:Performed By: #### 67207, 30951, 02353, 12590, 84728, 01771 #### [facility] [address] [place] [address], USAPROSPERAon [id number] KITResults to be mailed directly to physician's office by reference lab.NormalThe [facility] CompanyComment on above:Result Comment: Test performed by [id number] [employer], [place] [id number] No result expected. For billing and tracking purposes only. Specimen collected for transplant patient and sent to [facility] per Dr instructions. No charge.Performed By: #### 78223, 71264, 01689, 54236, 64177, 54758 #### [facility] [address] [address], USARESULTResults to be mailed directly to physician's office by reference lab.NormalThe [facility]ency Hospital CompanyComment on above: Performed By: #### 59808, 28174, 13253, 54995, 46629, 86703 #### [facility] [address] [place] [address], USATACROLIMUSon 06-78-1968Utlvxpbxkk (Bld) [Mass/Vol]7.7 ng/mL Normal5.0-20.0The [facility] CompanyComment on above:Result Comment: The GARCIA GAS ENGINE OPERATOR Tacrolimus assay is a delayed one-step immunoassay for the quantitative determination of tacrolimus in human whole blood using the chemiluminescent microparticle immunoassay (CMIA) technology with flexible assay protocols, referred to as Chemiflex.Performed By: #### 09018, 19996, 51526, 50877, 11898, 58611 #### [facility] [address] [place] [address], USAURIC ACID BLOODon 43-67-3124Dfvyv [Mass/Vol]7.9 mg/dLHigh 4.4-7.6The [facility] CompanyComment on above:Performed By: #### 48192, 25326, 61987, 74423, 70841, 15035 #### [facility] [address] [facility] [place] [address], USACBC W/DIFFon 50-10-6708PLD IMM GRANS0.0 10*3/uLNormal 0.0-0.2The [facility] CompanyComment on above:Performed By: #### 02577, 01562, 43079, 58259, 43626, 69667 #### [facility] [address] [facility] [place] [place] [address], USAABS NEUTROPHILS4.5 10*3/uLNormal1.6-7.6The [facility] CompanyComment on above:Performed By: #### 23266, 38239, 02170, 87475, 26346, 04018 #### [facility] [address] [facility] [place] [address], USABasophils (Bld) [#/Vol]0.0 10*3/uLNormal0.0-0.2The [facility] CompanyComment on above:Performed By: #### 44201, 29373, 24383, 44641, 40235, 82926 #### [facility] [address] [facility] [place] [address], USABasophils/100 WBC (Bld)0.5 %Normal0.0-1.0The [facility] CompanyComment on above:Performed By: #### 36886, 77452, 22263, 44648, 56054, 95391 #### [facility] [address] [place] [address], USAEosinophils (Bld) [#/Vol]0.2 10*3/uLNormal0.0-0.5The [facility] CompanyComment on above:Performed By: #### 42879, 60837, 33887, 08878, 88525, 09831 #### [facility] [address] [place] [address], USAEosinophils/100 WBC (Bld)3.1 %Normal0.0-6.0The [facility] CompanyComment on above:Performed By: #### 05083, 40331, 19596, 73953, 79462, 11554 #### [facility] [address] [facility] [place] [address], USAErythrocyte distribution width (RBC) [Ratio]13.4 %Normal 11.5-15.0The [facility] CompanyComment on above:Performed By: #### 11928, 61043, 67949, 16341, 88564, 56418 #### [facility] [address] [facility] [place] [place] [address], USAHematocrit (Bld) [Volume fraction]35.5 %Low39.0-50.0The [facility] CompanyComment on above:Performed By: #### 81874, 04025, 32131, 47808, 43665, 41122 #### [facility] [address] [facility] [place] [address], USAHemoglobin (Bld) [Mass/Vol]11.7 g/dLLow13.0-17.0The [facility] CompanyComment on above:Performed By: #### 15715, 36759, 93371, 38702, 49245, 23018 #### [facility] [address] [facility] [place] [address], USAIMMATURE GRANS0.6 %Normal0.0-1.0The [facility] Hospital CompanyComment on above:Performed By: #### 96257, 81024, 36692, 64407, 21442, 02400 #### [facility] [address] [place] [address], USALymphocytes (Bld) [#/Vol]0.8 10*3/uLLow1.2-4.0The [facility] CompanyComment on above:Performed By: #### 37997, 10343, 21068, 75986, 68834, 61789 #### [facility] [address] [place] [address], ZUNI HOSPITALLymphocytes/100 WBC (Bld)12.9 %Low20.0-45.0The [facility] CompanyComment on above:Performed By: #### 03685, 11405, 19550, 22993, 64469, 61199 #### [facility] [address] [place] [address], [facility] (RBC) [Entitic mass]29.2 ntTpvuqw98.0-33.0The [facility] Hospital CompanyComment on above:Performed By: #### 53592, 87514, 07766, 84224, 43038, 14979 #### [facility] [address] [place] [address], [facility] (RBC) [Mass/Vol]33.0 g/nNIwemvn66.0-35.0The [facility] Hospital CompanyComment on above:Performed By: #### 45250, 48125, 03116, 63154, 57014, 70465 #### [facility] [address] [facility] [place] [address], [facility] (RBC) [Entitic vol]88.5 rSVhzwoq64.0-98.0The [facility] CompanyComment on above:Performed By: #### 43469, 58706, 32343, 39934, 05274, 81132 #### [facility] [address] [place] [address], USAMonocytes (Bld) [#/Vol]0.6 10*3/uLNormal0.1-1.0The [facility] CompanyComment on above:Performed By: #### 71084, 38208, 79381, 23963, 20670, 36991 #### [facility] [address] [place] [address], AZCMLYRB37.3 %Normal5.0-12.0The [facility] CompanyComment on above:Performed By: #### 79103, 51319, 60599, 24500, 20760, 96711 #### [facility] [address] [place] [address], USANeutrophils/100 WBC (Bld)72.6 %High40.0-72.0The [facility] CompanyComment on above:Performed By: #### 86299, 50625, 55283, 13517, 68388, 65191 #### [facility] [address] [place] [address], USANucleated RBC/100 WBC (Bld) [Ratio]0 %Normal0-0The [facility] CompanyComment on above:Performed By: #### 10731, 14531, 54567, 87254, 36221, 74153 #### [facility] [address] [facility] [place] [address], USAPLAT HHM420 10*3/pJRdjwxl443-897Lnj [facility] CompanyComment on above:Performed By: #### 50835, 91235, 18457, 91393, 85865, 13179 #### [facility] [address] [facility] [place] [address], USARBC (Bld) [#/Vol]4.01 10*6/uLLow4.20-5.70The [facility] CompanyComment on above:Performed By: #### 25890, 58686, 83973, 67337, 92775, 12543 #### [facility] [address] [place] [address], USAWBC (Bld) [#/Vol]6.22 10*3/uLNormal4.00-10.60The [facility] CompanyComment on above:Performed By: #### 00420, 89146, 27395, 81845, 44184, 36901 #### [facility] [address] [place] [address], USACOMP METABOLIC PANELon 19-00-6228Rdbynfp [Mass/Vol]4.3 g/dL Normal3.5-5.7The [facility] CompanyComment on above:Performed By: #### 19700, 63557, 59083, 05291, 50482, 32357 #### [facility] [address] [place] [address], USAALKALINE WKEAEI175 IU/WGakw32-270Aqz [facility] CompanyComment on above:Performed By: #### 54734, 36003, 59172, 59470, 16222, 03263 #### [facility] [address] [place] [address], USAALT [Catalytic activity/Vol]16 U/LNormal7-52The [facility] CompanyComment on above:Performed By: #### 13916, 61446, 49371, 43969, 92419, 36197 #### [facility] [address] [place] [address], USAAST [Catalytic activity/Vol]15 U/VQrjjrd62-37Alx [facility] CompanyComment on above:Performed By: #### 92162, 89961, 76127, 03024, 55327, 36198 #### [facility] [address] [place] [address], USABilirubin [Mass/Vol]0.6 mg/dLNormal0.3-1.0The [facility] CompanyComment on above:Performed By: #### 06861, 50767, 26454, 97373, 74185, 93858 #### [facility] [address] [place] [address], USACalcium [Mass/Vol]10.3 mg/dLNormal8.6-10.3The [facility] CompanyComment on above:Performed By: #### 58591, 25680, 73398, 62474, 89608, 60341 #### [facility] [address] [place] [address], USAChloride [Moles/Vol]97 mmol/DTlj63-051Nzz [facility] CompanyComment on above:Performed By: #### 20664, 92455, 17732, 31776, 11204, 72566 #### [facility] [address] [place] [address], USACO2 [Moles/Vol]26 mmol/YVuxvkg46-29Vfx [facility] CompanyComment on above:Performed By: #### 32891, 48412, 60720, 97194, 42382, 94600 #### [facility] [address] [place] [address], USACreatinine [Mass/Vol]0.93 mg/dLNormal0.70-1.30The [facility] CompanyComment on above:Performed By: #### 04209, 65154, 02237, 74136, 51689, 29631 #### [facility] [address] [place] [address], USAGFR/1.73 sq M.predicted among blacks MDRD (S/P/Bld) [Vol rate/Area]mL/min/{1.73_m2}Normal>60The [facility] Comment on above:Performed By: #### 28313, 16574, 63888, 33306, 69807, 84051 #### [facility] [address] [place] [address], USAGFR/1.73 sq M.predicted among non-blacks MDRD (S/P/Bld) [Vol rate/Area]mL/min/{1.73_m2}Normal>60The [facility] Comment on above:Performed By: #### 14990, 09866, 58638, 10629, 31423, 93254 #### [facility] [address] [place] [address], USAGlucose [Mass/Vol]136 mg/yFSolb28-554Nmt [facility] CompanyComment on above:Performed By: #### 45418, 68747, 60286, 21094, 57926, 92837 #### [facility] [address] [place] [address], USAPotassium [Moles/Vol]5.2 mmol/LHigh3.5-5.1The [facility] CompanyComment on above:Performed By: #### 74290, 98313, 45045, 31228, 75454, 97603 #### [facility] [address] [place] [address], USAProtein [Mass/Vol]6.7 g/dLNormal6.0-8.3The [facility] CompanyComment on above:Performed By: #### 09989, 35021, 63164, 48992, 15080, 24057 #### [facility] [address] [place] [address], USASodium [Moles/Vol]129 mmol/VBqe128-885Nbs [facility] CompanyComment on above:Performed By: #### 19190, 33014, 59248, 07910, 00035, 02215 #### [facility] [address] [place] [address], USAUrea nitrogen [Mass/Vol]10 mg/dLNormal7-25The [facility] CompanyComment on above:Performed By: #### 99803, 11169, 20026, 32160, 96633, 83564 #### [facility] [address] [place] [address], USADIRECT BILIon 01-45-2573Sekmjcunv.direct [Mass/Vol]0.2 mg/dLNormal0.0-0.2The [facility] CompanyComment on above: Performed By: #### 58353, 34074, 69766, 37874, 33917, 06346 #### [facility] [address] [facility] [place] [place] [address], USALIPID PROFILEon 29-51-2717Ojtltegahax [Mass/Vol]84 mg/dLLow 120-200The [facility] CompanyComment on above:Result Comment: CHOLESTEROL REFERENCE RANGE: 20 YEARS AND OLDER CARDIOVASCULAR RISK Less than 200 mg/dl Low Risk 200 to 239 mg/dl Borderline Risk 240 mg/dl and greater High RiskPerformed By: #### 48807, 80645, 15542, 06899, 77367, 43241 #### [facility] [address] [facility] [place] [address], USACholesterol in HDL [Mass/Vol]41 mg/gFIppism73-33Mcj [facility] CompanyComment on above:Result Comment: Slight variation in normal range could be due to gender and/or age. HDL CHOLESTEROL REFERENCE RANGE: 20 years and older Cardiovascular Risk > or =60 mg/dL Desirable 40 TO 59 mg/dL Low Risk <40 mg/dL High RiskPerformed By: #### 02449, 05649, 47120, 40644, 81823, 31038 #### [facility] [address] [facility] [place] [address], USACholesterol in LDL [Mass/Vol]34 mg/dLNormal0-130The [facility] CompanyComment on above:Result Comment: LDL IS A CALCULATION LDL IS ONLY VALID IF THE TRIG IS LESS THAN 400.Performed By: #### 09030, 29548, 82225, 26491, 64734, 26396 #### [facility] [address] [facility] [place] [address], USACholesterol.total/Cholesterol in HDL [Mass ratio]2.0 {ratio}Normal.0-4.5The [facility] CompanyComment on above: Performed By: #### 78099, 39773, 08038, 62122, 10797, 55042 #### [facility] [address] [place] [address], USANON-HDL LTFPCZEWKQL61 mg/dLNormalThe [facility] CompanyComment on above:Performed By: #### 14343, 17605, 32136, 38804, 14491, 98207 #### [facility] [address] [place] [address], USATriglyceride [Mass/Vol]47 mg/bUMzlvnv19-174Bwr [facility] CompanyComment on above:Result Comment: TRIGLYCERIDE REFERENCE RANGE: 20 YEARS AND OLDER CARDIOVASCULAR RISK LESS THAN 150 mg/dl LOW RISK 150 TO 199 mg/dl BORDERLINE RISK 200 mg/dl AND GREATER HIGH RISKPerformed By: #### 82886, 46337, 81741, 88178, 74104, 02797 #### [facility] [address] [place] [address], USAVLDL CHOL9 mg/dLNormal0-40The [facility] CompanyComment on above:Performed By: #### 38967, 45281, 13209, 57092, 17611, 47862 #### [facility] [address] [place] [address], USAMAGNESIUM BLOODon 43-07-3163Ibigsudyy [Mass/Vol]1.3 mg/dL Low1.9-2.7The [facility] CompanyComment on above:Performed By: #### 92301, 31453, 98435, 40379, 99104, 37591 #### [facility] [address] [place] [address], USAPHOSPHORUS BLOODon 90-22-9823Tjxyqtbql [Mass/Vol]2.6 mg/dL Normal2.5-5.0The [facility] CompanyComment on above:Performed By: #### 86116, 73582, 90114, 88852, 08805, 54437 #### [facility] [address] [place] [address], USATACROLIMUSon 68-17-1062Mtrqvpligl (Bld) [Mass/Vol]8.3 ng/mL Normal5.0-20.0The [facility] CompanyComment on above:Result Comment: The GARCIA GAS ENGINE OPERATOR Tacrolimus assay is a delayed one-step immunoassay for the quantitative determination of tacrolimus in human whole blood using the chemiluminescent microparticle immunoassay (CMIA) technology with flexible assay protocols, referred to as Chemiflex.Performed By: #### 51087, 84629, 32060, 67539, 03463, 45102 #### [facility] [address] [place] [address], USAURIC ACID BLOODon 61-20-6727Yenyr [Mass/Vol]8.4 mg/dLHigh 4.4-7.6The [facility] CompanyComment on above:Performed By: #### 27216, 99133, 39814, 76738, 80741, 03098 #### [facility] [address] [place] [address], USABK VIRUS QUANTITATION FOR PLASMAon 56-66-9419XAN Plasma Quantitation by PCRNot [facility] Comment on above:Result Comment: Method: BK virus was measured by quantitative polymerase chain reaction using a fluorescent hydrolysis probe targeting the polyomavirus BK STAFF PHYSICAL THERAPY ASSISTANT-1 gene. The lower limit of quantitation of the assay is 500 copies of BK genome per milliliter of plasma or urine, and any detectable BK DNA below that level is reported as: Detected, <500 copies/ml. Serial BK virus measurement can be used to monitor disease activity. (Reference: Katina ramirezl. J CLIN MICRO 2004; 42:5302-4148). This test was developed and its performance characteristics determined by the [facility]. It has not been approved by the [place] Food and Drug Administration. However, such approval is not required for clinical implementation, and test results have been shown to be clinically useful. This laboratory is CAP accredited and CLIA certified to perform high complexity testing.Performed By: #### 31797, 37991, 25098, 96871, 85734, 65075 #### [facility] [address] [facility] [place] [address], USABKV Plasma Quantitation Log by PCRNot [facility] HospitalComment on above:Performed By: #### 69600, 66752, 15100, 35263, 11849, 18011 #### [facility] [address] [facility] [place] [address], USACBC W/DIFFon 78-09-0866BCD IMM GRANS0.1 10*3/uLNormal 0.0-0.2The [facility] CompanyComment on above:Performed By: #### 36993, 60530, 51852, 84322, 79049, 96784 #### [facility] [address] [facility] [place] [place] [address], USAABS NEUTROPHILS5.8 10*3/uLNormal1.6-7.6The [facility] CompanyComment on above:Performed By: #### 08819, 29453, 39344, 24538, 59057, 24861 #### [facility] [address] [facility] [place] [address], USABasophils (Bld) [#/Vol]0.0 10*3/uLNormal0.0-0.2The [facility] CompanyComment on above:Performed By: #### 22920, 28377, 26937, 26781, 71926, 43061 #### [facility] [address] [facility] [place] [address], USABasophils/100 WBC (Bld)0.4 %Normal0.0-1.0The [facility] CompanyComment on above:Performed By: #### 70442, 42421, 24528, 93828, 70809, 30022 #### [facility] [address] [facility] [place] [address], USAEosinophils (Bld) [#/Vol]0.3 10*3/uLNormal0.0-0.5The [facility] CompanyComment on above:Performed By: #### 86660, 71853, 04722, 90755, 11557, 19483 #### [facility] [address] [facility] [place] [address], USAEosinophils/100 WBC (Bld)3.5 %Normal0.0-6.0The [facility] CompanyComment on above:Performed By: #### 64224, 52969, 02386, 79331, 02154, 20357 #### [facility] [address] [place] [address], USAErythrocyte distribution width (RBC) [Ratio]13.6 %Normal 11.5-15.0The [facility] CompanyComment on above:Performed By: #### 73428, 17626, 91840, 59298, 75230, 22486 #### [facility] [address] [facility] [place] [address], ZUNI HOSPITALHematocrit (Bld) [Volume fraction]34.1 %Low39.0-50.0The [facility] CompanyComment on above:Performed By: #### 97858, 08078, 76076, 78981, 99961, 02258 #### [facility] [address] [place] [address], ZUNI HOSPITALHemoglobin (Bld) [Mass/Vol]11.6 g/dLLow13.0-17.0The [facility] CompanyComment on above:Performed By: #### 91608, 60816, 29659, 02508, 08531, 99020 #### [facility] [address] [place] [address], USAIMMATURE GRANS0.8 %Normal0.0-1.0The [facility] CompanyComment on above:Performed By: #### 14712, 81757, 59555, 38078, 85872, 76748 #### [facility] [address] [place] [address], USALymphocytes (Bld) [#/Vol]0.7 10*3/uLLow1.2-4.0The [facility] CompanyComment on above:Performed By: #### 06377, 54956, 51464, 97679, 56496, 58229 #### [facility] [address] [place] [address], USALymphocytes/100 WBC (Bld)9.2 %Low20.0-45.0The [facility] CompanyComment on above:Performed By: #### 75849, 40190, 09957, 36010, 02508, 03982 #### [facility] [address] [place] [address], [facility] (RBC) [Entitic mass]29.5 rhLathxd84.0-33.0The [facility] CompanyComment on above:Performed By: #### 19085, 54069, 38245, 42682, 45621, 31268 #### [facility] [address] [facility] [place] [address], ZUNI HOSPITALMCHC (RBC) [Mass/Vol]34.0 g/rTTspntq31.0-35.0The [facility] CompanyComment on above:Performed By: #### 30193, 42245, 15554, 63324, 95391, 98077 #### [facility] [address] [address], ZUNI HOSPITALMCV (RBC) [Entitic vol]86.8 xEJicztk36.0-98.0The [facility] CompanyComment on above:Performed By: #### 31126, 52629, 62300, 68711, 64697, 91974 #### [facility] [address] [place] [address], USAMonocytes (Bld) [#/Vol]0.8 10*3/uLNormal0.1-1.0The [facility] CompanyComment on above:Performed By: #### 53618, 80873, 40997, 72764, 07901, 27988 #### [facility] [address] [place] [address], JBSQSQGV04.3 %Normal5.0-12.0The [facility] CompanyComment on above:Performed By: #### 59817, 57536, 26395, 93498, 71094, 72125 #### [facility] [address] [place] [address], USANeutrophils/100 WBC (Bld)75.8 %High40.0-72.0The [facility] CompanyComment on above:Performed By: #### 81149, 55928, 95601, 76350, 47950, 55607 #### [facility] [address] [place] [address], USANucleated RBC/100 WBC (Bld) [Ratio]0 %Normal0-0The [facility] CompanyComment on above:Performed By: #### 15495, 39894, 76029, 97519, 25537, 64656 #### [facility] [address] [address], USAPLAT QZC648 10*3/uIShbwpf615-081Zxi [facility] CompanyComment on above:Performed By: #### 30644, 26761, 87225, 29333, 98746, 59480 #### [facility] [address] [facility] [place] [address], USARBC (Bld) [#/Vol]3.93 10*6/uLLow4.20-5.70The [facility] CompanyComment on above:Performed By: #### 70912, 26482, 49280, 98113, 12804, 02574 #### [facility] [address] [place] [address], USAWBC (Bld) [#/Vol]7.65 10*3/uLNormal4.00-10.60The [facility] CompanyComment on above:Performed By: #### 06581, 18866, 93716, 03035, 20207, 38837 #### [facility] [address] [facility] [place] [address], USACOMP METABOLIC PANELon 74-06-0654Arlnboj [Mass/Vol]4.6 g/dL Normal3.5-5.7The [facility] CompanyComment on above:Performed By: #### 28186, 98590, 29730, 20508, 71254, 15907, 17990, 24002 #### [facility] [address] [facility] [place] [address], USAALKALINE JTHCXF133 IU/ENfmm19-699Iuq [facility] CompanyComment on above:Performed By: #### 01857, 77752, 75546, 98500, 04889, 82319, 73170, 42173 #### [facility] [address] [facility] [place] [address], USAALT [Catalytic activity/Vol]22 U/LNormal7-52The [facility] CompanyComment on above:Performed By: #### 73370, 89651, 82279, 64589, 77224, 97217, 87828, 70118 #### [facility] [address] [facility] [place] [address], USAAST [Catalytic activity/Vol]18 U/XAzhqrn76-13Glz [facility] CompanyComment on above:Performed By: #### 83561, 63769, 23447, 09080, 83743, 45116, 06988, 50553 #### [facility] [address] [facility] [place] [address], USABilirubin [Mass/Vol]0.5 mg/dLNormal0.3-1.0The [facility] CompanyComment on above:Performed By: #### 06043, 62617, 18375, 88360, 57486, 82462, 25500, 20475 #### [facility] [address] [place] [address], USACalcium [Mass/Vol]10.5 mg/dLHigh8.6-10.3The [facility] CompanyComment on above:Performed By: #### 15754, 12160, 48544, 76767, 64810, 57308, 68047, 18667 #### [facility] [address] [place] [address], USAChloride [Moles/Vol]94 mmol/DKwz23-169Diw [facility] CompanyComment on above:Performed By: #### 56592, 44276, 98826, 92197, 30467, 86954, 44045, 14810 #### [facility] [address] [place] [address], USACO2 [Moles/Vol]28 mmol/PEaesja85-65Gqe [facility] CompanyComment on above:Performed By: #### 77956, 36237, 54228, 24416, 55386, 85093, 50105, 67400 #### [facility] [address] [place] [address], USACreatinine [Mass/Vol]0.93 mg/dLNormal0.70-1.30The [facility] CompanyComment on above:Performed By: #### 37019, 35123, 95613, 71280, 77489, 04294, 91389, 32762 #### [facility] [address] [place] [address], USAGFR/1.73 sq M.predicted among blacks MDRD (S/P/Bld) [Vol rate/Area]mL/min/{1.73_m2}Normal>60[facility] Comment on above:Performed By: #### 33600, 55421, 72444, 29846, 88503, 07776, 89513, 35889 #### [facility] [address] [place] [address], USAGFR/1.73 sq M.predicted among non-blacks MDRD (S/P/Bld) [Vol rate/Area]mL/min/{1.73_m2}Normal>60[facility] Comment on above:Performed By: #### 25731, 21597, 98294, 69460, 22167, 50350, 97727, 67738 #### [facility] [address] [place] [address], USAGlucose [Mass/Vol]147 mg/zPXzvm62-401Dan [facility] CompanyComment on above:Performed By: #### 96831, 06398, 19718, 65597, 84165, 03771, 12041, 31614 #### [facility] [address] [place] [address], USAPotassium [Moles/Vol]4.6 mmol/LNormal3.5-5.1The [facility] CompanyComment on above:Performed By: #### 40704, 89532, 54658, 39682, 55511, 29523, 58208, 87386 #### [facility] [address] [address], USAProtein [Mass/Vol]7.2 g/dLNormal6.0-8.3The [facility] CompanyComment on above:Performed By: #### 59576, 17317, 74946, 29530, 68182, 51260, 07661, 45304 #### [facility] [address] [place] [address], USASodium [Moles/Vol]129 mmol/JKhh330-611Ler [facility] CompanyComment on above:Performed By: #### 14865, 93642, 68896, 78250, 13951, 58653, 55456, 51221 #### [facility] [address] [place] [address], USAUrea nitrogen [Mass/Vol]15 mg/dLNormal7-25The [facility] Hospital CompanyComment on above:Performed By: #### 88477, 36356, 67188, 59753, 83679, 77422, 31861, 29129 #### [facility] [address] [place] [address], USADIRECT BILIon 50-93-1678Mrueynnte.direct [Mass/Vol]0.2 mg/dLNormal0.0-0.2The [facility] Hospital CompanyComment on above: Performed By: #### 44791, 84447, 57271, 61332, 31833, 70504 #### [facility] [address] [place] [address], USAHEMOGLOBIN A1Con 98-86-4697Hjhjbmo [Moles/Vol]154 mmol/L NormalThe Regency Hospital CompanyComment on above:Performed By: #### 92325, 51490, 05128, 91234, 90012, 39831 #### [facility] [address] [place] [address], KXCFzT4j (Bld) [Mass fraction]7.0 %High4.0-6.0The [facility] Hospital CompanyComment on above:Performed By: #### 51554, 15034, 30804, 10485, 32006, 83188 #### [facility] [address] [place] [address], USALIPID PROFILEon 65-92-5506Sjcdquftzmg [Mass/Vol]78 mg/dLLow 120-200The [facility] Hospital CompanyComment on above:Result Comment: CHOLESTEROL REFERENCE RANGE: 20 YEARS AND OLDER CARDIOVASCULAR RISK Less than 200 mg/dl Low Risk 200 to 239 mg/dl Borderline Risk 240 mg/dl and greater High RiskPerformed By: #### 45484, 32480, 23075, 38317, 85661, 05746, 58831, 65571 #### [facility] [address] [place] [address], USACholesterol in HDL [Mass/Vol]41 mg/rNJkjefx80-39Uuf [facility] CompanyComment on above:Result Comment: Slight variation in normal range could be due to gender and/or age. HDL CHOLESTEROL REFERENCE RANGE: 20 years and older Cardiovascular Risk > or =60 mg/dL Desirable 40 TO 59 mg/dL Low Risk <40 mg/dL High RiskPerformed By: #### 64063, 59163, 95033, 39429, 18057, 89642, 52121, 53507 #### [facility] [address] [place] [address], USACholesterol in LDL [Mass/Vol]28 mg/dLNormal0-130The [facility] Hospital CompanyComment on above:Result Comment: LDL IS A CALCULATION LDL IS ONLY VALID IF THE TRIG IS LESS THAN 400.Performed By: #### 03672, 39557, 37161, 58638, 72887, 34975, 46028, 60862 #### [facility] [address] [place] [address], USACholesterol.total/Cholesterol in HDL [Mass ratio]1.9 {ratio}Normal.0-4.5The [facility] Hospital CompanyComment on above: Performed By: #### 07621, 92842, 69267, 59915, 13086, 98055, 61347, 76542 #### [facility] [address] [place] [address], USANON-HDL PVBONRRNKDF97 mg/dLNormalThe Reg[facility] Hospital CompanyComment on above:Performed By: #### 02327, 19346, 74840, 57319, 14962, 49040, 24716, 29463 #### [facility] [address] [place] [address], USATriglyceride [Mass/Vol]44 mg/kARyypli88-426Nhd [facility] Hospital CompanyComment on above:Result Comment: TRIGLYCERIDE REFERENCE RANGE: 20 YEARS AND OLDER CARDIOVASCULAR RISK LESS THAN 150 mg/dl LOW RISK 150 TO 199 mg/dl BORDERLINE RISK 200 mg/dl AND GREATER HIGH RISKPerformed By: #### 99531, 96064, 73518, 71395, 06274, 41544, 23806, 50447 #### [facility] [address] [place] [address], USAVLDL CHOL9 mg/dLNormal0-40The [facility] Hospital CompanyComment on above:Performed By: #### 57629, 45957, 27440, 33680, 73734, 07166, 41156, 31151 #### [facility] [address] [place] [address], USAMAGNESIUM BLOODon 02-11-5104Phckgwpwv [Mass/Vol]1.5 mg/dL Low1.9-2.7The [facility] Hospital CompanyComment on above:Performed By: #### 19224, 47299, 89969, 12862, 41935, 03668 #### [facility] [address] [place] [address], USAPHOSPHORUS BLOODon 55-07-9029Rffhmfxft [Mass/Vol]2.4 mg/dL Low2.5-5.0The [facility] Hospital CompanyComment on above:Performed By: #### 18055, 56122, 41635, 58589, 01651, 24805, 77672, 34725 #### [facility] [address] [place] [address], USAPROSPERAon 91-98-2117VFBRYBWZ KITResults to be mailed directly to physician's office by reference lab.NormalThe Regency Hospital CompanyComment on above:Result Comment: Test performed by [id number] [place] [address] No result expected. For billing and tracking purposes only. Specimen collected for transplant patient and sent to [facility] per Dr instructions. No charge.Performed By: #### 81603, 82184, 79760, 87489, 10793, 16868 #### [facility] [address] [place] [address], USARESULTResults to be mailed directly to physician's office by reference lab.NormalThe Regency Hospital CompanyComment on above: Performed By: #### 76585, 17568, 55084, 71749, 03022, 30965 #### [facility] [address] [place] [address], USAPTH INTACTon 65-30-4806KSQ XYRIZK294 pg/yQFtdl13-54Pvq [facility] Hospital CompanyComment on above:Performed By: #### 18018, 72557, 28313, 54211, 32251, 84762 #### [facility] [address] [place] [address], USASINGLE ANTIGEN CLASS 1on 37-48-0579ADEVBBAqjgp I Single AntigenNoAdams County HospitalComment on above:Order Comment: Some of the reagents used for [...] be possible, but not probable, due to frequency.Performed By: #### 35961, 75882, 74823, 88476, 55692, 33275 #### [facility] [address] [place] [address], USASINGLE ANTIGEN CLASS 2on 71-46-0435PPLKEKMYDakqmxVrmAdams County HospitalComment on above:Order Comment: Some of the reagents used for [...] be possible, but not probable, due to frequency.Result Comment: Potential specificites added to the watch list. Class II Antigen MicrobeadsPerformed By: #### 90623, 96344, 55098, 77060, 07216, 23233 #### [facility] [address] [place] [address], USAResult Comment: No Class I donor specific antibody identified Class I Antigen MicrobeadsMETHODClass II Single AntigenCleveland Clinic Euclid HospitalComment on above:Order Comment: Some of the reagents used for [...] be possible, but not probable, due to frequenc y.Performed By: #### 63896, 57114, 75259, 12045, 99436, 95685 #### [facility] [address] [place] [address], USASIGNED BYCleveland Clinic Euclid Hospital Comment on above:Order Comment: Some of the reagents used for [...] be possible, but not probable, due to frequency.Result Comment: Jose A Lara MS,CHT([facility]),MT(ASCP) Count Room Clerk, Transplant ImmunologyPerformed By: #### 57742, 79624, 74307, 01483, 08937, 79516 #### [facility] [address] [place] [address], USATACROLIMUSon 04-52-2398Bbbzjpyxfo (Bld) [Mass/Vol]7.0 ng/mL Normal5.0-20.0The [facility] Hospital CompanyComment on above:Result Comment: The GARCIA [employer] ENGINE OPERATOR Tacrolimus assay is a delayed one-step immunoassay for the quantitative determination of tacrolimus in human whole blood using the chemiluminescent microparticle immunoassay (CMIA) technology with flexible assay protocols, referred to as Chemiflex.Performed By: #### 70292, 69413, 08101, 77623, 90070, 19594 #### [facility] [address] [place] [address], [facility]UNI HOSPITALTESTOSTERONE, FREE+SHBG+TOTAL ILon 01-22-7966UCJbvrndOkkSt. Anthony's HospitalComment on above:Result Comment: Test Performed by [employer] [facility] [place] [address] - Nzhohbbe 02/16/2021 18:49SEX HORM BIND GLOB52 nmol/DVphfeb84-70 The [facility] Hospital CompanyTestosterone [Mass/Vol]399 ng/dLNormal 220-1000The [facility] Hospital CompanyTESTOSTERONE, FREE60.0 pg/mL Txhpmy23-225Fii [facility] Hospital CompanyComment on above:Result Comment: The concentration of free testosterone is derived from a mathematical expression based on the constant for the binding of testosterone to albumin and/or sex hormone binding globulin.URIC ACID BLOODon 88-06-1591Qvzyt [Mass/Vol]8.0 mg/dLHigh4.4-7.6The [facility] Hospital CompanyComment on above:Performed By: #### 37928, 82703, 80653, 90699, 01818, 65329, 08037, 20154 #### [facility] [address] [place] [address], ZUNI HOSPITALVITAMIN D 25-HYDROXYon 82-48-0487JPZZZQG D 25-OH35.1 ng/mL Ofuowc36.0-80.0The [facility] Hospital CompanyComment on above:Result Comment: >80.0 Toxicity possiblePerformed By: #### 82023, 41004, 04942, 35407, 73013, 57144 #### [facility] [address] [place] [address], [facility] Vital Signs Date TimeVital SignValuePerforming XpnsmnvgrZhvnyvol74-59-8307 11:21-0400Body .64 cmJericho Mccarthy MD Work Phone: [phone]09-15-2025 11:21-0400 Body mass index (BMI) [Ratio]25.7 kg/m2Jericho Mccarthy MD Work Phone: [phone]09-15-2025 11:21-0400 Body repfxw59.12 kgJericho Mccarthy MD Work Phone: [phone]09-15-2025 11:21-0400 Diastolic blood jczavpbr31 mm[Hg]Jericho Mccarthy MD Work Phone: [phone]09-15-2025 11:21-0400 Heart rate61 /minJericho Mccarthy MD Work Phone: [phone]09-15-2025 11:21-0400 Respiratory rate16 /minJericho Mccarthy MD Work Phone: [phone] [place], [place] 295[address]309-15-2025 11:21-0400 SaO2% (BldA) [Mass fraction]96 %Jericho Mccarthy MD Work Phone: [phone])[address]09-15-2025 11:21-0400 Systolic blood ywltupxx750 mm[Hg]Jericho Mccarthy MD Work Phone: [phone]10-07-2024 08:19-0400 Body wulxld977.6 cmJericho Mccarthy MD Work Phone: [facility] CenterZkfpebrttm95-11-3528 08:19-0400Body mass index (BMI) [Ratio]24.37 kg/m2Jericho Mccarthy MD Work Phone: [facility] CenterMsmwslpkvo85-23-4247 08:19-0400Body temperature 97.5 [degF]Jericho Mccarthy MD Work Phone: [facility] CenterNwbjtksqrp24-12-4649 08:19-0400Body bpubjl46.49 kgJericho Mccarthy MD Work Phone: [facility] CenterLwtrzdyaxg75-58-7219 08:19-0400Diastolic blood mm[Hg]Jericho Mccarthy MD Work Phone: [phone] [place], [place] [address]Faksijffns09-20-0171 08:19-0400Heart rate57 /min Jericho Mccarthy MD Work Phone: [phone] CenterBnvrlofrpk43-43-5070 08:19-0400Respiratory rate18 /minJericho Mccarthy MD Work Phone: [phone] [place], [place] [address]Hfrlgpsoer84-71-8663 08:19-4585NzS5% (BldA) [Mass fraction]98 %Jericho Mccarthy MD Work Phone: [phone] [place], [place] [address]Ebxncuxccu55-89-9993 08:19-0400Systolic blood mm[Hg]Jericho Mccarthy MD Work Phone: [phone] [place], [place] 4784210-25-2022 09:30-0400Diastolic blood taxkgpip08 mm[Hg]MD Jericho Mccarthy Work Phone: [phone]10-25-2022 09:30-0400 Heart rate58 /minMD Jericho Mccarthy Work Phone: [phone]10-25-2022 09:30-0400 Respiratory rate18 /minMD Jericho Mccarthy Work Phone: [phone])[address]10-25-2022 09:30-0400 SaO2% (BldA) [Mass fraction]99 %MD Jericho Mccarthy Work Phone: [phone])[address]10-25-2022 09:30-0400 Systolic blood inrtdbke388 mm[Hg]MD Jericho Mccarthy Work Phone: [phone]10-25-2022 07:01-0400 Body cdfeet629.64 cmMD Jericho Mccarthy Work Phone: [phone] [place], [place] [address]10-25-2022 07:01-0400 Body viffnblxude34.9 [degF]MD Jericho Mccarthy Work Phone: [phone]10-25-2022 07:01-0400 Body .84 kgMD Jericho Mccarthy Work Phone: [facility]09-12-2022 10:30-0400 Body phzowe765.64 Alfreditomarlen Maira Other [employer] Other 09-12-2022 10:30-0400Body mass index (BMI) [Ratio] 26.47 kg/u5Ezcvcdojiva Wells Other [employer] Other 09-12-2022 10:30-0400Body .39 kgLawryuriy GarciaMaira Other [employer] Other 09-12-2022 10:30-0400Diastolic blood fjeunryh31 mm[Hg] Tj Wells Other [employer] Other 09-12-2022 10:30-0400Systolic blood mm[Hg] Tj Wells Other [employer] Other Encounters Encounter DateEncounter TypeCare ProviderFacilityStart: 02-03-2025 End: 76-82-0432Qmtamo flowsheetEmdavid Traore MD Work Phone: [facility]atologyStart: 02-03-2025 End: 98-06-3767Ckowyk flowsheetEmdavid Traore MD Work Phone: noMS [facility]r DermatologyStart: 02-03-2025 End: 51-21-2371Vavnzn outpatient visit 15 minutesEmdavid Traore MD Work Phone: [facility] DermatologyComment on above:Seborrheic keratosis (Primary Dx); Lentigines; Sebaceous hyperplasia of face; History of basal cell carcinomaStart: 02-03-2025 End: 70-67-8591ckvptenepiPMXPC A PETITTINot AvailableStart: 01-24-2025 End: 37-59-3329pxsvnmhaerNbvs Naderer MD Work Phone: [facility] Work Phone: Start: 01-24-2025 End: 96-62-9130Cfinvor encounter procedureJericho Mccarthy MD-[facility] Austyn Work Phone: Start: 80-99-8834Ylp-patient / Non-visitDinlinda Bosch- [facility] Work Phone: Start: 12-02-2024 End: 72-21-1534smknxqcfvjJLQBUXA [facility] Start: 12-01-2024 End: 34-57-3837Ayusjhner Result EncounterGeneric External Data ProviderNOMS External Department UnsolicitedStart: 12-01-2024 End: 97-31-5792Tvphedehd Result EncounterGeneric External Data ProviderNOMS External Department UnsolicitedStart: 09-30-2024 End: 71-65-7419Cuqzextfs Result EncounterGeneric External Data ProviderNOMS External Department UnsolicitedStart: 09-30-2024 End: 34-47-4899Boimesfyi Result EncounterGeneric External Data ProviderNOMS External Department UnsolicitedStart: 06-18-2024 End: 38-24-6786ivkkmjaitpGMXTWadsworth-Rittman Hospitaltart: 06-09-2024 End: 73-05-6623hbcheqwpcvJFJCWadsworth-Rittman Hospitaltart: 06-04-2024 End: 91-49-7815Awvwtzfzs Result EncounterGeneric External Data ProviderNOMS External Department UnsolicitedStart: 06-04-2024 End: 85-96-5556Swpxsqjvs Result EncounterGeneric External Data ProviderNOMS External Department UnsolicitedStart: 04-16-2024 End: 51-87-8999Flchiiijm Result EncounterGeneric External Data ProviderNOMS External Department UnsolicitedStart: 04-16-2024 End: 33-87-2201Ozawalcqe Result EncounterGeneric External Data ProviderNOMS External Department UnsolicitedStart: 03-23-2024 End: 71-73-4127Miofybkbn Result EncounterGeneric External Data ProviderNOMS External Department UnsolicitedStart: 03-23-2024 End: 82-64-3681Grgflchor Result EncounterGeneric External Data ProviderNOMS External Department UnsolicitedStart: 03-11-2024 End: 15-09-6621Kcjazyjlt Result EncounterGeneric External Data ProviderNOMS External Department UnsolicitedStart: 03-11-2024 End: 72-25-8035Vbtfhbiiz Result EncounterGeneric External Data ProviderNOMS External Department UnsolicitedStart: 02-16-2024 End: 81-08-0344Ovitadluis Mccarthy MD Work Phone: noms CW FMStart: 02-16-2024 End: 63-23-2501Ksumooalejandra Mccarthy MD Work Phone: NOTR CW FMStart: 02-16-2024 End: 50-84-8495Boftjr outpatient visit 15 minutesJericho Mccarthy MD Work Phone: noms [facility] FMComment on above:Type 2 diabetes mellitus with hyperglycemia, with long-term current use of insulin (CMS/HCC) (Primary Dx); Essential hypertension, benign (CMS/HCC); Peripheral vascular disease (CMS/HCC); Type 2 diabetes mellitus with diabetic chronic kidney disease (CMS/HCC); Chronic kidney disease, stage 2 (mild); Type 2 diabetes mellitus with diabetic peripheral angiopathy without gangrene (CMS/HCC)Start: 02-16-2024 End: 07-99-5289fjubzlshxdMSYB NADERERNot AvailableStart: 02-11-2024 End: 97-82-8389haqwzuwoqkDQNNR [facility] Hospitaltart: 02-06-2024 End: 08-97-3897Bgsfnmfcl Result EncounterGeneric External Data ProviderNOMS External Department UnsolicitedStart: 02-06-2024 End: 21-56-3281Agxzjmhmf Result EncounterGeneric External Data ProviderNOMS External Department UnsolicitedStart: 02-02-2024 End: 08-12-3864Shhemu flowsheetEmily Mariel Traore MD Work Phone: [facility] DERMStart: 02-02-2024 End: 29-33-9756Ngjgeb flowsheetEmily Mariel Traore MD Work Phone: [facility] DERMStart: 02-02-2024 End: 45-43-8043Vtzuzv outpatient visit 15 minutesEmdavid Traore MD Work Phone: no[facility] DERMComment on above:Sebaceous hyperplasia of face (Primary Dx); History of basal cell carcinoma; LentiginesStart: 01-09-2024 End: 72-00-8579Dshyfhpmg Result EncounterGeneric External Data ProviderNOMS External Department UnsolicitedStart: 01-09-2024 End: 49-68-8113Edcivigbq Result EncounterGeneric External Data ProviderNOMS External Department UnsolicitedStart: 10-03-2022 End: 58-58-6577eiujyrxbtsCL DOCTOR MISCFacility:H5Tmkqd: 08-30-2022 End: 78-36-6997pcvmxdwsnlYK DOCTOR MISCFacility:Q1Ewikk: 08-01-2022 End: 71-47-0081wqstkmrflgOF DOCTOR MISCFacility:L2Wgjon: 07-04-2022 End: 21-16-4840vcfyxmbzukBV DOCTOR MISCFacility:T6Wsrqe: 05-23-2022 End: 17-46-3389imcxhrdzufNT DOCTOR MISCFacility:C7Btieb: 04-30-2022 End: 49-39-8680ditaeflfmtZQ DOCTOR MISCFacility:K1Sngpe: 04-03-2022 End: 44-77-6439tklslvnxxeMK DOCTOR MISCFacility:J1Fqwii: 03-08-2022 End: 89-79-1098xhdwvbmbdyCV NAGA BOSCHFacility:M0Pqgtj: 03-05-2022 End: 81-60-7251lvjxjwimzzFgbfnlzl R McCormackFacility:[facility] Hospitaltart: 03-05-2022 End: 62-27-3980Yziuskmcy to same day surgery centerMD Jericho Mccarthy Work Phone: [facility]-Digestive HealthStart: 03-05-2022 End: 47-06-3338caayjegavpGM Marc Naderer Work Phone: [facility] Work Phone: Start: 03-01-2022 End: 65-18-1319oghtkpznolOuiicuje R McCormackFacility:[facility] Hospitaltart: 03-01-2022 End: 99-48-8937pharaydqcjFR Jericho Mccarthy Work Phone: [facility] Work Phone: Start: 03-01-2022 End: 97-13-8850Gpmpqxy encounter procedureMD Jericho Mccarthy Work Phone: [facility]-Pre-Surgical Testing Start: 02-01-2022 End: 29-81-5034ygpwgmiixoEK DOCTOR MISCFacility:C7Bamta: 01-21-2022 End: 35-45-0040ndwlckweplIfqlzrhq McCormack Other [place] [employer] Other Start: 43-14-3927Bjeslz outpatient new 45 minutes Tj Hamilton GastroenterologyStart: 01-04-2022 End: 26-15-2275emjyopazhfTF NAGA KAWFacility:J4Uktbt: 11-30-2021 End: 80-58-0874xyjmslsuqlKC DOCTOR MISCFacility:A8Xpdty: 11-14-2021 End: 78-79-7233zohknfulkoVP JERICHO GILLESPIERFacility:H1 Procedures DateProcedureProcedure DetailPerforming ClinicianStart: 96-59-4051TWJ CBC WITH AUTO DIFFGeneric External Data ProviderStart: 32-08-0740SEO CBC WITH AUTO DIFF Generic External Data ProviderStart: 82-73-6210PMF CBC WITH AUTO DIFFGeneric External Data ProviderStart: 19-05-6213UBU CBC WITH AUTO DIFFGeneric External Data ProviderStart: 33-92-2278BA ECHO DOPPLER COMPLETEGeneric External Data ProviderStart: 39-00-1046YWW CBC WITH AUTO DIFFGeneric External Data Provider Start: 61-70-6348RZS CBC WITH AUTO DIFFGeneric External Data ProviderStart: 01-11-0854FNY CBC WITH AUTO DIFFGeneric External Data ProviderStart: 04-16-2023 End: 04-81-3598Rqidkou of renal transplantKidney replaced by transplantGeneric ProviderStart: 03-05-2022 End: 29-44-8104HcpzcbsnzmnBL Jericho Mccarthy Work Phone: Start: 40-96-8744Ihndbhw of renal transplantHistory of renal transplantGeneric ProviderStart: 58-41-2931OhpqbbtslgvgqlmeCqnrg: 61-64-2476WnqxuseinnikcjbpScyjh: 96-93-0193MfqocxtteffEsxg Fabio MOSES Work Phone: History of renal transplantKidney transplant recipient Jericho Mccarthy MD Work Phone: Comment on above:00-15-5757ZTYZ Antigen (LFIA)MD Jericho Mccarthy Work Phone: Plan of Treatment DateCare ActivityDetailAuthorStart: 70-51-4300Dbripunkl for malignant neoplasm of colonNOMS HealthcareStart: 17-23-0666Qqyxrsmob for malignant neoplasm of colonNOMS HealthcareStart: 02-02-2026 End: 83-85-0022Gjewosk encounter qpsotqjwi12/24/2026 8:30 AM EDT Office Visit [facility] [address] [place] [address] Rajesh Traore MD [address] [place] [address] [facility]ermatologyStart: 11-25-2025 Glaucoma screeningDiabetes: Retinopathy ScreeningNOMS HealthcareStart: 50-08-1823Nipms screening for proteinDiabetes: Urine Protein ScreeningNOMS HealthcareComment on above:Postponed from 07/09/2024 (Other Medical Reasons) Postponed from 12/15/1970 (Other Medical Reasons)Start: 02-03-2025 End: 24-86-7029Dztdovn encounter procedureNOMS SWS DERMComment on above:Arrived Start: 62-53-4141Dkvunhbzb vaccinationSTEWARD HEALTH CARE SYSTEM HealthcareStart: 28-22-6484Brehdldmug A1c measurementDiabetes: Hemoglobin L2PZBUM HealthcareStart: 03-11-2024 End: 66-97-5127Gthnjqn encounter sjwhdvqci83/31/2024 9:15 AM EDT Office Visit [facility] [address] [place] [address] Jericho Mccarthy MD [address] [place] [address] NOMS M FMStart: 02-16-2024 End: 95-60-8217Eueqnzd encounter procedureNOMS M FMComment on above:Arrived Start: 02-02-2024 End: 12-60-7996Tnykfzr encounter procedureNOMS SWS DERMComment on above:Arrived Start: 14-43-1408Eoymvfhur vaccinationInfluenza Vaccine (#1)[facility] Start: 65-80-5004Xnqulbdywq A1c measurementDiabetes: Hemoglobin N7YVNLR HealthcareStart: 63-50-6565UqyxuaevkAvita Health System Ontario Hospitaltart: 01-31-2017 Pneumococcal Vaccine: 65+ Years (2 of 2 - PCV)Pneumococcal Vaccine: 65+ Years (2 of 2 - PCV)[facility] CenterStart: 08-06-1952Medicare Annual Wellness (AWV) Medicare Annual Wellness (AWV)[facility] HealthcareStart: 33-26-8195Xjzpytxqx for malignant neoplasm of colonNOSC HealthcarePatient EducationCoKettering Health [facility]burg Work Phone: Immunizations Immunization DateImmunizationNotesCare EbkmqphoAbtupbhe35-23-8072Nmbgxcznj, High-dose Seasonal, Quadrivalent, Preservative FreeGeneric ProviderNOMissouri Baptist Hospital-SullivanYpxkzvzsat93-93-1738ltzrcflzp virus vaccine, unspecified formulationGeneric ProviderSt. [facility] VA Medical CenterUmljkealax03-54-9174UXVQO-61 mRNA Bivalent Booster (Pfizer)MD Jericho Mccarthy Work Phone: [facility]12-20-2021Influenza, Seasonal, Quadrivalent, AdjuvantedGeneric ProviderSt. Louis VA Medical CenterAikpslrbmb24-68-9524 COVID-19 Akil Santana (Pfizer)MD Jericho Mccarthy Work Phone: [facility]03-03-2021COVID-19 mRNAAkil (Pfizer)MD Jericho Mccarthy Work Phone: [facility]10-01-2019influenza, injectable, quadrivalent, contains preservativeGeneric ProviderSt. [facility] Center 33-76-6039tztnkxagw, seasonal, injectableLawrence Maira Other [employer] Other 10362111-33-0903rwldankpm virus vaccine, unspecified formulationGeneric ProviderSt. Louis VA Medical CenterSjyazhatwr20-59-3609pjwsfujci, seasonal, injectableLawrence Maira Other [employer] Other 09108252-53-8025udtbpotfztkz polysaccharide vaccine, 23 valentLawrence Maira Other [employer] Other Payers DatePayer CategoryPayerPolicy [id number] [employer] [id number] 14-03-6264Bddvfqm Health [id number] Health Insurance [id number] [facility] [id number] 2022-Present [address] [place] [id number]Utwj-wif [id number] [id number] 2010Medicare [id number] [id number] [id number] Health [id number] 2.16840.5.06668[id number] 2.16840.1.078716.3.579.2.593 [id number] 2.16840.1.636196.3.57[id number] 2.840.1.668608.3.57[id number] 2.16840.1.306354.3.579.2.60164-39-5740Vdcakhv8456929 2.16840.1.368667.3.579.2.02240-08-4090Iwtjnmz3566111 2.16840.1.475563.3.579.2.41119-49-4317Xmmsder5529296 2.16840.1.261245.3.579.2.57000-59-1930Rzizhok5123211 2.16840.1.861295.3.579.2.13534-40-8442Qsqotyl3783245 2.16840.1.752437.3.579.2.82585-99-7259Fvevkmc2943346 2.16840.1.600549.3.579.2.09893-10-5752Deixpfu2349572 2.16840.1.444833.3.579.2.90377-60-6423Isassdq0111223 2.840.1.688020.3.579.2.62262-77-6605Kwwqezl89987730 2.840.1.915845.3.579.2.577760-45-9234Rztmyer3760506 2.840.1.632230.3.579.2.1029Zuloonx53548945 2.0.1.861581.3.579.2.531 [id number] 2.840.1.324358.3.579.2.531 Social History DateTypeDetailFacilityUnknown if [place] [employer] Other Start: 02-02-2024 End: 11-83-2788Wls Assigned At [facility] [employer] Other Start: 11-11-2019 End: 72-90-1880Zutuahz smoking status NHISEx-smoker (finding)[facility] 64-83-7390Lzk Assigned At [facility] End: 17-08-9798Coggfjv of tobacco useCurrent smokerNOMS HealthcareStart: 05-12-1980 End: 51-59-4748Usdxkem of tobacco useCigarette SmokerNOMS HealthcareStart: 18-72-7056Pcelgzi use and exposureSmokeless tobacco non-userNOMS Healthcare Start: 02-02-2024 End: 99-35-7508Nncucoe of Social functionNOMS HealthcareStart: 84-81-5610Jsv assigned at birthNot on fileNOMS HealthcareSexMale (finding)[facility] Hospitaltart: 72-14-1300NjcLmltVLYR Healthcare Medical Equipment Procedure CodeEquipment CodeEquipment Original TextEquipment IdentifierDates Creation or revision of arteriovenous fistulaGRAFT ARTEGRAFT 6MM X 40CMFDAStart: 71-34-9503Qhwrwcxj or revision of arteriovenous fistulaGRAFT ARTEGRAFT 6MM X 40CMFDAStart: 72-14-8241Bufkhxyi or revision of arteriovenous fistulaGRAFT ARTEGRAFT 6MM X 40CMFDAStart: 01-14-2017 Goals DatePatient GoalDesired Activity/State Clinical Notes 09-09-2009 to 02-03-2025 Note Date & [id number] History of Present illness Narrative* Rajesh Traore MD - 02/03/2025 9:05 AM EDT Skin Check Location: Patient requests a skin examination of the face and arms, A full body skin exam was offered, patient declined Dermatologic history: history of Actinic Keratosis, history of Basal Cell Carcinoma (left tip of nose) Last visit: 1 year ago Established patient All pertinent medical history, medications, and allergies were reviewed. General Exam: alert, oriented to person, place, and time, normal affect, well appearing Unaccompanied A complete skin exam was offered, pt declined. Areas not examined despite medical recommendation: From the waist down, under shirt Scalp, Examined , exam limited by hair Head, Face Examined Neck Examined Chest Not examined Back Not examined Abdomen Not examined Right arm Examined Left arm Examined Hands Examined Digits,nails: Examined Lymphatics: Skin Exam 1. SEBORRHEIC KERATOSIS (2) Head - Anterior (Face), Left Anterior Neck Stuck on verrucous, wheeler-brown papules and plaques. Patient was counseled regarding these benign growths. Removal is normally not necessary, but they may be removed if they are symptomatic or for cosmetic reasons. 2. LENTIGINES Head - Anterior (Face) Scattered wheeler macules in sun-exposed areas. The patient was informed that lentigines are benign pigmented lesions that occur on sun-exposed andsun-damaged skin. No treatment is necessary. Recommended regular use of broad spectrum sunscreen SPF 30 or higher 3. SEBACEOUS HYPERPLASIA OF FACE Head - Anterior (Face) Small yellow papules with a central dell. Reassure, benign. Discussed these can be removed for a cosmetic fee with the hyfrecator if desired. 4. HISTORY OF BASAL CELL CARCINOMA Left Tip of Nose No evidence of [...] within or around the previous surgery scar. Next Visit: 1 year documented in this encounterSt. Louis [facility] Medical [id number] NoteNephrology Transplant Clinic Roger Suarez 1950 [id number] Patient : Roger Suarez; 73 y.o. 12/02/2024 Reason for Visit: History of renal transplant. HPI: Roger Suarez; 73 y.o. male with a history of [...] log of blood pressures at home, contact [facility] transplant if blood pressure is persistently >140/90. Continue with current antihypertensive regimen Magnesium 800 mg tid Tac level not drawn, to have completed Follow up: 6 months Recent Labs I have reviewed the patient's most recent labs as listed below: Chemistry: CBC [facility]12/01[facility] Component 12/01/2024 [facility] HGB 11.6 Low Load older lab results [facility] HCT 35.9 Low Load older lab results [facility] MCV 90 Load older lab results [facility] MCH 29.1 Load older lab results [facility] MCHC 32.3 Load older lab results [facility] MPV 9.9 Load older lab results CHEM PROFILE [facility]12/01/2024 Component 12/01/2024 [facility] EGFR-AF SERBIAN >60 Load older lab results [facility] EGFR-NON AF SERBIAN >60 Load older lab results DIFFERENTIAL [facility]12/01/2024 Component 12/01/2024 NEUTROPHILS PERCENT AUTO 74.5 Load older lab results MONOCYTES PERCENT AUTO 8 Load older lab results [facility] EO % 3.8 Load older lab results BASOPHILS PERCENT AUTO 0.5 Load older lab results Others [facility]12/01/2024 Component 12/01/2024 12/01/2024 12/01/2024 12/01/2024 12/01/2024 12/01/2024 TACROLIMUS ([id number]), BLOOD -- -- -- -- -- -- Load older lab results TESTOSTERONE -- -- -- -- -- -- Load older lab results FREE TESTOSTERONE(DIRECT) -- -- -- -- -- -- Load older lab results [facility] WBC 7.7 -- -- -- -- -- Load older lab results [facility] RBC 3.99 Low -- -- -- -- -- Load older lab results [facility] HGB 11.6 Low -- -- -- -- -- Load older lab results [facility] HCT 35.9 Low -- -- -- -- -- Load older lab results [facility] MCV 90 -- -- -- -- -- Load older lab results [facility] MCH 29.1 -- -- -- -- -- Load older lab results [facility] MCHC 32.3 -- -- -- -- -- Load older lab results [facility] RDW 14.1 -- -- -- -- -- Load older lab results [facility] PLT 221 -- -- -- -- -- Load older lab results [facility] MPV 9.9 -- -- -- -- -- Load older lab results NEUTROPHILS PERCENT AUTO 74.5 -- -- -- -- -- Load older lab results LYMPHOCYTES PERCENT AUTO 12.3 Low -- -- -- -- -- Load older lab results MONOCYTES PERCENT AUTO 8 -- -- -- -- -- Load older lab results [facility] EO % 3.8 -- -- -- -- [...] -- -- Load older lab results [facility] EO # 0.3 -- -- -- -- [...] -- Load older (more content not included)... [facility]04-29-2025 NoteWriter called patient to reschedule appt on 11-11-24 Dr. Benitez will be out of the office. Nut Grader left detailed message. Appointment cancelled.[facility]02-07-2025 Note Attestation signed by Ananda Pan MD at 06/22/2024 1:41 PM I personally saw and examined the patient on the same date of service as resident/fellow Baron Nguyen MD. I discussed the findings and therapeutic plan with the Baron Nguyen MD. I agree with the documentation, except for any edits/updates below. Ananda Pan MD Faculty, Division of Nephrology, Department of Medicine, [facility] [employer]. Nephrology Transplant Clinic Patient : Roger Suarez; 73 y.o. REASON FOR VISIT: Follow up for history of kidney transplantation. HPI: 06/18/24: Roger Suarez presents for follow-up: Patient denied any symptoms No dyspnea on exertion. No leg swelling. Adequate energy level. Adequate appetite. No diarrhea. No dizziness on standing or walking. No fevers or recent illness. BACKGROUND Roger Suarez is a 73 y.o. male end-stage renal [...] 0913 PROT 6.8 02 (more content not included)...[facility] 06-16-2024 NoteAfter [employer] Secure Chat message from Santana Villegas that he will see pt for FU, this coordinator left a voicemail message for the pt to contact the clinic ([facility]) for his RV time on 06/18/24.[facility]01-29-2025 NoteSUBJECTIVE Roger Suarez is a 73 y.o. year old male patient being seen for No chief complaint on file. HPI 06/09/2024: Roger Suarez is a 73 yo male being seen [...] Problem List Diagnosis Cataract Congestive heart failure ([facility]/HCC) Coronary atherosclerosis End-stage renal disease ([facility]/HCC) History of renal transplant Peripheral vascular disease (CMS/HCC) Increased infection risk status post immunosuppressive therapy Multiple congenital cysts of kidney Moderate mixed hyperlipidemia not requiring statin therapy COLD (chronic obstructive lung disease) ([facility]) Essential hypertension, benign Pleurisy with effusion Polycystic kidney DAVID (acute kidney injury) ([facility]) Hypomagnesemia Anemia of renal disease Basal cell carcinoma (BCC) of dorsum of nose Chronic heart failure with preserved ejection fraction (HFpEF) ([facility]) Type 2 diabetes mellitus with hyperglycemia, with long-term current use of insulin ([facility]) family history includes ALS in his [...] Do not crush, c (more content not included)...[facility] [id number] NotePatient here for 1 year follow up CAD, pulmonary hypertension, and CHF. [...] light-headedness. All other systems reviewed and are negative.[facility] 06-04-2024 NoteReviewed over the phone with Dr. Martines patients mag 1.4. To make sure patient is consistently taking his mag. Spoke to patient who said he will work on it, he has issues with diarrhea while on it. He will try Maalox and call us if diarrhea is not improved.[facility]12-03-2024 NotePatient called requesting refill on Furosamide. Patient was informed rx was discontinued in Jan by Santana.[facility]10-07-2024 History of Present illness Narrative* Jericho Mccarthy MD - 02/16/2024 8:49 AM EDT Associated Problem(s): Peripheral vascular disease (CMS/HCC) Follow with specialists. * Jericho Mccarthy MD - 02/16/2024 8:49 AM EDTAssociated Problem(s): Type 2 diabetes mellitus with hyperglycemia, with long-term current use of insulin (CMS/HCC) BS controlled and at times low. A1C 5.6 and decrease basaglar to 15 units daily. Stick to ADA diet and limit carbs. * Jericho Mccarthy MD - 02/16/2024 8:48 AM EDTAssociated Problem(s): Essential hypertension, benign (CMS/HCC) BP controlled and monitor PRN. * Jericho Mccarthy MD - 02/16/2024 8:15 AM EDT Images from the original note were not [...] KwikPen) 100 UNIT/ML pen documented in this encounterSt. Louis VA Medical [id number] NoteTransplant Clinic Patient : Roger Suarez; 73 y.o. Reason for Visit: History of [...] in the above HPI Chart Reviewed Historical: >>>>>>>>>>>>>>>>>>>>>>>>>>>>>>>>>>>>>>>>>>>>>>>> 10/31/2023 Patient returns regarding posttransplant evaluation and [...] DM next week. Instructed patient to consider Poultry Barn Manager locally to him: quan zaman. Pt Hx: end-stage renal disease secondary to [...] DM. Return in 12 weeks with labs. <<<<<<<<<<<<<<<<<<<<<<<<<<<<<<<<<<<<<<<<<<<<<<<< OBJECTIVE: Visit Vitals BP 167/79 (BP Location: [...] 5.2 (H) 07/09/2023 0913 CL 93 (L) (more content not included)...[facility] 02-02-2024 History of Present illness Narrative* Rajesh Traore MD - 02/02/2024 10:30 AM EDT Skin Check Location: Patient requests a skin [...] benign pigmented lesions that occur on sun-exposed andsun-damaged skin. No treatment is necessary. Recommended regular use of broad spectrum sunscreen SPF 30 or higher Next Visit: 1 year documented in this encounterSt. Louis VA Medical CenterXordtfgyiv24-26-2456 NoteMg 1.2 reviewed with PRUDENCIO Chou. Patient was previously refusing infusion for Magnesium and note from visit 10/30 was not complete. Per PRUDENCIO Chou on [employer] secure chat patient is to be on Amiliride 5mg daily, take Maalox and Mylanta with Mg. Phone call to patient who had stopped Amiliride in error and has been continuing to take Amlodipine which was discontinued. Patient requested script for Amiliride to be sent to [facility] in [place]. Reviewed magnesium rich foods with patient. Patient also states he is taking 2400 mg of magnesium daily. Instructed patient to get repeat labs this month. Patient verbalizes understanding. Also mailed standing lab order for monthly BK to patient to have added to standing labs.[facility]10-25-[address] [facility]09-12-2022 Evaluation note* Encounter Date Diagnosis Assessment Notes Treatment Notes Treatment Clinical Notes Jan, Diarrhea (ICD-10 - R19.7) Colonoscopy Okay to take Imodium - 1 tablet every morning Jan,Fecal urgency (ICD-10 - R15.2) [employer] Other 05-01-2010 History general Narrative - Reported* Type Description Date Medical History HTN Medical HistoryESRD-on hemodialysisMedical HistoryPolycystic kidney disease Surgical HistoryLeft rosio fistula npbwogou12/2010Surgical HistoryRight hand orthopedic surgery due to fractureSurgical HistoryLeft forearm Cimmo fistulogram with balloon angioplasties12/2010, 12/2012, 10/2014, 12/2015Surgical Historyleft upper arm basilic fistula transposition, fistulogram, balloon angioplasty/stent (Viabahn 8X25mm) in the forearm venous nueyuau8707/23/2016Surgical Historyleft upper extremity fistulogram, balloon lflozooqzhd31/06/2017Surgical Historyleft forearm tomas-fistula resection, a new graft (Artegraft) placement, balloon angioplasty01/14/17Surgical Historycolonoscopy07/08/2017Surgical Historyright kidney [id number] HistoryKidney Issue; on transplant list ([facility]02/2018Hospitalization Historypulmonary embolism 09/2019 [employer] Other Evaluation noteNo assessment information available [facility] Work Phone: Evaluation note* Diagnosis Onset Date Resolution Status Diarrhea acute [facility] Work Phone: Evaluation note* Diagnosis [...] without gangrene (CMS/HCC) documented in this encounter [facility] HealthcareEvaluation note* Diagnosis Sebaceous hyperplasia of face- Primary History of basal cell carcinoma Personal history of other malignant neoplasm of skin Lentigines documented in this encounter [facility] HealthcareEvaluation note* Diagnosis Onset Date Resolution Status Admit Date Benign essential hypertension acuteSeptember 2024 11:04amCAD in andreafski arteryacuteSept2024 11:04amChronic heart failure with preserved ejection fraction (HFpEF)acute January 24, 2025 11:04amDiabetes mellitus with hyperglycemia, with long-term current use of insulinacuteSept2024 11:04amESRD (end stage renal disease)acuteSept2024 11:04am [facility] Work Phone: Evaluation note* Diagnosis Type 2 diabetes mellitus with hyperglycemia, with long-term current use of insulin (HCC)- Primary DAVID (acute kidney injury) Essential hypertension, benign Essential hypertension, benign Chronic heart failure with preserved ejection fraction (HFpEF) (HCC) Type 2 diabetes mellitus with hyperglycemia, with long-term current use of insulin (HCC)- Primary Essential hypertension, benign Essential hypertension, benign History of renal transplant (HCC) 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) Chronic obstructive pulmonary disease, unspecified COPD type (HCC) Chronic heart failure with preserved ejection fraction (HFpEF) (HCC) Type 2 diabetes mellitus with hyperglycemia, with long-term current use of insulin (HCC)- Primary Essential hypertension, benign Essential hypertension, benign Peripheral vascular disease Unspecified peripheral vascular disease Type 2 diabetes mellitus with diabetic chronic kidney disease (HCC) Chronic kidney disease, stage 2 (mild) Type 2 diabetes mellitus with diabetic peripheral angiopathy without gangrene (HCC) Seborrheic keratosis- Primary Lentigines Sebaceous hyperplasia of face History of basal cell carcinoma Personal history of other malignant neoplasm of skin documented in this encounter [facility] Dis[facility] instructions Additional Instructions DISCHARGE INSTRUCTIONS [...] if you have any problems. -Office number [phone] [facility] Work Phone: Reydmv for referral (narrative)No reason for referral information availableOhiohealth [facility] Hospital Work Phone: Resfea for visit NarrativePATIENT REFERRED BY DR. MCCARTHY FOR EVALUATION AND TREATMENT OF DIARRHEANort [employer] Other Summary Purpose Family History Relationship Condition Age at Onset Recorded Date/T shoshana Not Specified Congenital polycystic kidney Unknown Diabetes mellitusUnknownMyocardial infarctionUnknownFamily history of coronary artery bypass surgeryUnknown Relationship Condition Age at Onset Recorded Date/T shoshana Not Specified Congenital polycystic kidney Unknown Diabetes mellitusUnknownMyocardial infarctionUnknownFamily history of coronary artery bypass surgeryUnknownbrotherDeceasedUnknownHeart diseaseUnknownfather DeceasedUnknownPolycystic kidney diseaseUnknownmotherHeart diseaseUnknown DeceasedUnknownsisterHypertensionUnknown Advance Directives Advance Directive Response Recorded Date/ Time Advance Directives No January 06, 2017 11:20am Chief Complaint and Reason for Visit Chief Complaint Diarrhea, Fecal Urge ncy Chief Complaint Diarrhea, Fecal Urge ncy Diarrhea, Fecal UrgencyReason for VisitDiarrhea Chief Complaint Admit Date Established Patient January 24, 2025 11:04am Reason for Visit Admit Date Benign essential hypertension January 24, 2025 11:04am CAD in andreafski artery January 24 11:04am Chronic heart failure with p reserved ejection fraction (HFpEF) January 24, 2025 11:04am Diabetes mellitus with hyper glycemia, with long-term current use of insulin January 24, 2025 11:04am ESRD (end stage renal disease) January 24, 2025 11:04am Additional Source Comments (unrecognized sect ion and content) No Status Records FoundNo Status Records FoundNo Status Records FoundNo Status Records FoundNo Status Records FoundNo Status Records Found INFORMATION SOURCE (unrecogn ized section and content) DATE CREATED AUTHOR 07/13/2019 [facility] DATE CREATED AUTHOR AUTHOR'S ORGANIZ ATION 11/02/2021 [facility] DATE CREATED AUTHOR AUTHOR'S ORGANIZ ATION 03/12/2022 [facility] DATE CREATED AUTHOR AUTHOR'S ORGANIZ ATION 10/18/2022 [facility] DATE CREATED AUTHOR AUTHOR'S ORGANIZ ATION 12/04/2024 [facility] DATE CREATED AUTHOR AUTHOR'S ORGANIZ ATION 02/04/2025 [facility] EPIC Care Teams (unrecognized sec tion and content) Team Status: Active Member Role Status Dates Jericho Mccarthy MD Primary Care Provider Active Team Status: Active Member Role Status Dates Jericho Mccarthy MD Primary Care Provider Active S tart: January 21, 2025 Naga Dent ProviderActiveStart: January 21, 2025 Team Status: Inactive Member Role Status Dates Jericho Mccarthy MD Primary Care Provider Active S tart: January 24, 2025 End: January 24, 2025David Diop ProviderActiveStart: January 24, 2025 End: January 24, 2025 Team Status: Inactive Member Role Status Dates Jericho Mccarthy MD Primary Care Provider Active David Schuler ProviderActiveTeam MemberRelationship SpecialtyStart DateEnd Date Jericho Mccarthy MD [address] [place] [address] [facility] - [facility]08/25/23Team MemberRelationshipSpecialtyStart DateEnd Date Jericho Mccarthy MD [address] [place] [address] [facility] - [facility] Medicine08/25/23Team MemberRelationshipSpecialtyStart DateEnd Date Jericho Mccarthy MD [address] [place] [address] PCP - GeneralFamily Medicine08/25/23Team MemberRelationshipSpecialtyStart DateEnd Date Jericho Mccarthy MD [address] [place] [address] PCP - GeneralFamily Medicine08/25/23Team MemberRelationshipSpecialtyStart DateEnd Date Jericho Mccarthy MD [address] [place] [address] PCP - Generalmily [facility]08/25/23Te MemberRelationshipSpecialtyStart DateEnd Date Jericho Mccarthy MD [address] [place] [phone] [facility]08/25/23Team MemberRelationshipSpecialtyStart DateEnd Date Jericho Mccarthy MD [address] [place] [address] PCP - Generalmily [facility]08/25/23Te MemberRelationshipSpecialtyStart DateEnd Date Jericho Mccarthy MD [address] [place] [address] PCP - GeneralFami Medicine08/25/23 Goals (unrecognized section and content) Goals may be documented in a n alternate section Reason for Visit (unrecogniz ed section and content) ReasonCommentsFollow-up6 MReasonCommentsSkin Check FOR RECORDS PERTAINING TO PATIENTS WHO [...] BE BASED ON THE PRIMARY CLINICAL RECORDS. [employer] [facility]. provides no warranty or guarantee of the accuracy or completeness of information in this document.
[2025-04-06 08:28] LABS: Hematocrit 36.5 % (42.0-54.0); Hemoglobin 11.5 g/dL (14.0-18.0); Immature Granulocytes Abs Auto 0.06 10^3/uL (0.00-0.03); Immature Granulocytes Pct Auto 0.8 % (0.0-0.5); Lymphocytes Absolute Auto 1.0 10^3/uL (1.2-3.8); Mean Corpuscular HGB Conc 31.5 g/dL (29.9-35.2); Mean Corpuscular Hemoglobin 28.0 pg (25.9-34.0); Mean Corpuscular Volume 89.0 fL (80.0-94.0); Platelet Count 239 10^3/uL (150-450); Red Blood Count 4.10 10^6/uL (4.70-6.10); White Blood Count 7.3 10^3/uL (4.0-11.0)
[2025-04-06 10:44] LABS: Alanine Aminotransferase 19 U/L (16-63); Albumin Globulin Ratio 1.2; Albumin Level 3.9 g/dL (3.4-5.0); Alkaline Phosphatase 105 U/L (46-116); Anion Gap 12.5; Aspartate Amino Transferase 12 U/L (15-37); Blood Urea Nitrogen 13.0 mg/dL (7.0-18.0); Calcium 8.3 mg/dL (8.5-10.1); Carbon Dioxide 28.0 mmol/L (21.0-32.0); Chloride 103 mmol/L (98-107); Estimated GFR (African America >60 (>=60 mL/min/1.73m^2); Estimated GFR (Non-African Ame >60 (>=60 mL/min/1.73m^2); Globulin 3.2 g/dL; Glucose 80 mg/dL (74-106); Magnesium 1.2 mg/dL (1.8-2.4); Potassium 4.5 mmol/L (3.5-5.1); Sodium 139 mmol/L (136-145); Total Protein 7.1 g/dL (6.4-8.2); Uric Acid 6.1 mg/dL (3.5-7.2)
[2025-04-08 20:08] LABS: Tacrolimus (FK506), Blood 6.4 ng/mL (5.0-20.0)
== END 2025-04-06 07:09 | disposition home or self-care (01) ==
LOC: LAB 07:10
PROVIDERS: PCP Family Medicine; Visit Provider Internal Medicine Nephrology
DX: Z94.0 Kidney transplant status (principal)
CPT/HCPCS: 36415; 80053; 80197; 82248; 83735; 84100; 84550; 85025